=== PATIENT | male | born 1965 ===

== ENCOUNTER 2025-06-13 14:28 | Outpatient (NON) | payer OTHER, SELFPAY ==
--- OUTSIDE RECORDS SUMMARY | 2025-06-13 14:39 | XMS_ITS | Clinical Summary ---
Author Organization [facility] Address [address] [place] [address] Care Team Providers Care Automatic Oven Operator Name Role Phone Unavailable Primary Care Provider Unavailabl e Social History Tobacco Use Types Packs/Day Years Used Date Smoking Tobacco: Never Assessed Sex and Gender Information Value Date Recorded Sex Assigned at Not on file Legal Sex Male 3:26 PM LOG BUNCHER Gender Identity Not on file Sexual Orientation Not on file Plan of Treatment Health Maintenance Due Date Last Done Comments DTAP/TDAP/TD VACCINES (1 - Tdap) 1983 COLORECTAL SCREENING 2009 Colorectal Cancer Screening 2009 FIT-DNA Q 3 years 2009 FIT/FOBT Q 1 year 2009 Flex Sig/CT Colonography Q 5 years 2009 ZOSTER VACCINE (1 of 2) 2014 INFLUENZA VACCINE (#1) 2025 RSV VACCINE (60+ or ) (1 - 1-dose 75+ series) 2039 Insurance [facility]
--- OUTSIDE RECORDS SUMMARY | 2025-06-13 14:39 | XMS_ITS | Encounter Summary ---
Author Organization [facility] Address [address] [place] [address] Phone Care Team Providers Care Machinery Engineer Name Role Phone Anuel Vargas Primary Care Provider [phone] Justin Flowers MD Unavailable Erlin Chong MD Unavailable Katerina Romero RN Unavailable Unavailable Alexandra Powell RN Unavailable Encounter Details Date Type Department Care Team (Late st Contact Info) Description 05/08/2025 Documentation [facility] Endocrinology Metabolism and Lipid [address] [facility] Advanced Medicine 13th [place] [address] [place] [address] Edmundo Best MD [address] [place] [address] Social History Tobacco Use Types Packs/Day Years Used Date Smoking Tobacco: Never Passive Smoke Exposure: Never Smokeless Tobacco: Never [facility] Utilities Answer Date Recorded In the past 12 months has [employer], gas, oil, or water [employer] threatened to shut off services in your home? No 04/10/2025 Social Connection and Isolat ion Panel [NHANES] Answer Date Recorded In a typical week, how many times do you talk on the phone with family, friends, or neighbors? More than three times a week 04/10/2025 How often do you get togethe r with friends or relatives? Once a week 04/10/2025 How often do you attend chur ch or scientologist services? Never 04/10/2025 Do you belong to any clubs o r organizations such as islam groups, unions, fraternal or athletic groups, or school groups? No 04/10/2025 How often do you attend meet ings of the clubs or organizations you belong to? Never 04/10/2025 Are you , , di vorced, , never , or living with a partner? 04/10/2025 AUDIT-C Answer Date Recorded Q1: How often do you have a drink containing alcohol? Never 05/02/2025 Q2: How many drinks containi ng alcohol do you have on a typical day when you are drinking? Patient does not drink Q3: How often do you have si x or more drinks on one occasion? Never 05/02/2025 Overall Financial Resource Strain (CARDIA) Answe r Date Recorded How hard is it for you to pa y for the very basics like food, housing, medical care, and heating? Not hard at all 04/10/2025 PHQ-2 Answer Date Recorded PHQ-2 Total Score 1 04/10/2025 Hunger Vital Sign Answer Date Recorded Within the past 12 months, y ou worried that your food would run out before you got the money to buy more. Never true 04/10/20 25 Within the past 12 months, t he food you bought just didn't last and you didn't have money to get more. Never true 04/10/2025 PRAPARE - Transportation Answer Date Re corded In the past 12 months, has l ack of transportation kept you from medical appointments or from getting medications? No 03/22 In the past 12 months, has l ack of transportation kept you from meetings, work, or from getting things needed for daily living? No 04/10/2025 Housing Stability Vital Sign Answer [place] e Recorded In the last 12 months, was t here a time when you were not able to pay the mortgage or rent on time? No 11/28/2023 In the last 12 months, how many places have you lived? 1 11/28/2023 In the last 12 months, was t here a time when you did not have a steady place to sleep or slept in a snf (including now)? No 11/28/2023 PHQ-9 Answer Date Recorded PHQ-9 Total Score 5 04/10/2025 Housing Stability Vital Sign Answer [place] Recorded In the last 12 months, was t here a time when you were not able to pay the mortgage or rent on time? No 04/10/2025 In the past 12 months, how m any times have you moved where you were living? 0 04/10/2025 At any time in the past 12 m [facility], were you homeless or living in a snf (including now)? No 04/10/2025 Personal Safety Answer Date Recorded Have you ever been in or are you currently in a harmful physical or emotional relationship or is someone making you feel afraid or unsafe? 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 auris 04/18/2025 04/18/202505/0805/08/2025 9:48 AM CDT 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 Specials protocols are implemented when working with a patient testing positive for C. Auris. 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 05/07/2025 05/07/2025 COVID: Suspected 05/20/2025 05/20/2025 05/20/2025 9:26 AM CDT documented as of this encounter Care Teams Machinery Engineer Relationship Specialty Start Date End Date Anuel Vargas DO PCP - General Internal Medicine 10/19/22 Justin Flowers MD [address] DIV IM BONE MARROW TRANSPLANT, [address] [place] [address] Consulting Physician Medical Oncology 10/06/23 Erlin Chong MD [address] DIV IM BONE MARROW TRANSPLANT, [address] [place] [address] Referring Physician Cardiology 10/06/23 Katerina Romero, manager lswFloor Waxer Cardiothoracic Surgery 04/03/25 05/20/25 Alexandra Powell, RN [address] [facility] [address] [place] [address] Floor Waxer Transplant 05/21/25 documented as of this encounter
--- OUTSIDE RECORDS SUMMARY | 2025-06-13 14:39 | XMS_ITS | Encounter Summary ---
Author Organization [facility] Address [address] [place] [address] Phone Care Team Providers Care Rv Service Technician Name Role Phone Anuel Vargas Primary Care Provider [phone] Justin Flowers MD Unavailable Erlin Chong MD Unavailable Katerina Romero RN Unavailable Unavailable Alexandra Powell RN Unavailable [phone] Encounter Details Date Type Department Care Team (Late st Contact Info) Description 10/28/2023 Telephone [facility] Oncology [facility] 7th [place] [address] [place] [address] Mavis Adair Social History Tobacco Use Types Packs/Day Years Used Date Smoking Tobacco: Never Smokeless Tobacco: Never AUDIT-C Answer Date Recorded Q1: How often do you have a drink containing alc ohol? Monthly or less 07/19/2023 Average Number of Drinks Not on file 023 Frequency of Binge Drinking Not on file 06/22 Personal Safety Answer Date Recorded Getting School Help Needed Denies 11/01 Sex and Gender Information Value Date Recorded Sex Assigned at Not on file Legal Sex Male 12:25 PM NON DESTRUCTIVE EVALUATION TECHNICIAN Gender Identity Male 05/28/2021 8:44 PM CDT Sexual Orientation Straight 10/19/2022 9: 47 AM NON DESTRUCTIVE EVALUATION TECHNICIAN documented as of this encounter Plan of Treatment Upcoming Encounters Date Type Department Care Team (Latest Contact Info) Description 06/17/2025 12:00 PM CDT Hospital Encounter [address] [place] [address] Rodney Newsome MD PhD [address] [place] [address] 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 auris Comment:04/15/25: Negative C. Auris swab. Leelee Schuler 04/17/2025 This flag is used to identify patient who are in house who are being monitored by Infection Prevention. If the patient is discharged and a swab has not been collected, if patient returns to hospital within 7 days a surveillance swab is to be collected (Reach out to IP for order) Patient does NOT need isolation, patient can travel off the floor. 04/10/2025 04/10/2025 04/17/2025 7:29 AM C DT Ring Surveillance: C. auris 04/18/2025 04/18/2025 05/08/2025 9:48 AM CDT 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 Specials protocols are implemented when working with a patient testing positive for C. Auris. 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 05/07/2025 05/07/2025 COVID: Suspected 05/20/2025 05/20/2025 05/20/2025 9:26 AM CDT documented as of this encounter Care Teams Rv Service Technician Relationship Specialty Start Date End Date Anuel Vargas DO PCP - General Internal Medicine 10/19/22 Justin Flowers MD [address] DIV IM BONE MARROW TRANSPLANT, [address] [place] [address] Consulting Physician Medical Oncology 10/06/23 Erlin Chong MD [address] DIV IM BONE MARROW TRANSPLANT, [address] [place] [address] Referring Physician Cardiology 10/06/23 Katerina Romero, applications architectLab Support Tech Cardiothoracic Surgery 04/03/25 05/20/25 Alexandra Powell, RN [address] [facility] [address] [place] [address] Lab Support Tech Transplant 05/21/25 documented as of this encounter
--- OUTSIDE RECORDS SUMMARY | 2025-06-13 14:39 | XMS_ITS | Encounter Summary ---
Author Organization [facility] Address [address] [place] [address] Care Team Providers Care Harm Reduction Worker Name Role Phone Richard ROMANO MD, Ariel Martell Primary Care Provider Karmen Ramos DO Primary Care Provider [phone] Anuel Vargas DO Primary Care Provider [phone] Encounter Details Date Type Department Care Team (Late st Contact Info) Description 09/24/2017 [place] [address] , Polina Campoverde MD Social History Tobacco Use Types Packs/Day Years Used Date Smoking Tobacco: Never Assessed Sex and Gender Information Value Date Recorded Sex Assigned at Not on file Legal Sex Male 7:22 PM CDT Gender Identity Not on file Sexual Orientation Not on file documented as of this encounter Plan of Treatment Not on file documented as of this encounter Visit Diagnoses Not on filedocumented in this encounter Care Teams Harm Reduction Worker Relationship Specialty Start Date End Date Ariel Ramos II, MD PCP - General 03/14/15 11/24/21 Karmen Ramos DO [address] [place] [address] PCP - General INTERNAL MEDICINE 11/25/21 08/04/22 Anuel Vargas DO [address] [place] [address] PCP - General INTERNAL MEDICINE 08/05/22 documented as of this encounter
--- OUTSIDE RECORDS SUMMARY | 2025-06-13 14:39 | XMS_ITS | Clinical Summary ---
Author Organization [facility] [employer] Address [address] [facility] [place] [address] Care Team Providers Care Pony Trimmer Name Role Phone Unavailable Primary Care Provider Unavailabl e Source Comments [facility],non-owned Affiliates and Associated Physician Practices is amultiple site organization consisting of ambulatory clinics and hospital sitesin [place], [place], [place] and [place]. This disclosure is being madepursuant to the Care Everywhere program and may not contain all information available regarding this patient. Last updated 18.[facility] [employer] Social History Tobacco Use Types Packs/Day Years Used Date Smoking Tobacco: Never Assessed Sex and Gender Information Value Date Recorded Sex Assigned at Not on file Legal Sex Male 4:10 PM CDT Gender Identity Not on file Sexual Orientation Not on file Plan of Treatment Health Maintenance Due Date Last Done Comments COLOGUARD (AGES 45-75) - COLON CA SCREENING 1964 COLON MONITORING 1964 COLONOSCOPY - COLON CA SCREENING 1964 CT COLONOGRAPHY - COLON CA SCREENING 1964 Colorectal Cancer Screening 1964 FIT - COLON CA SCREENING 1964 FLEX SIG - COLON CA SCREENING 1964 HIV SCREENING 1979 HEPATITIS C SCREENING 05/02/1982 DTAP/TDAP/TD VACCINES (1 - Tdap) 1983 PNEUMOCOCCAL VACCINE 50+ (1 of 1 - PCV) 2014 ZOSTER VACCINE (1 of 2) 2014 COVID-19 VACCINE ( - season) 2024 04/27/2022, 04/27/2022, 11/24/2021, Additional history exists DEPRESSION SCREENING 11/21/2024 INFLUENZA VACCINE (#1) 2025 , 08/26/2020, 09/25/2019 LIPID TESTING 08/07/2027 08/07/2022 Respiratory Syncytial Virus (RSV) Vaccine Pt: or over 60 yrs (1 - 1-dose 75+ series) 2039 HEPATITIS B VACCINE Aged Out No longe r eligible based on patient's age to complete this topic HIB VACCINE Aged Out No longer eligi ble based on patient's age to complete this topic HPV VACCINE Aged Out No longer eligi ble based on patient's age to complete this topic MENINGOCOCCAL (Group B) VACCINE SHARED DECISION-MAKING Aged Out No longer eligible based on patient's age to complete this topic MENINGOCOCCAL GROUPS A/C/Y/W VACCINE Aged Out No longer eligible based on patient's age to complete this topic Insurance [employer]
--- OUTSIDE RECORDS SUMMARY | 2025-06-13 14:39 | XMS_ITS | Encounter Summary ---
Author Organization [facility] Address [address] [place] [address] Phone Care Team Providers Care Medical Transcriptionist Name Role Phone Anuel Vargas Primary Care Provider [phone] Reason for Referral * Procedure (Routine) - Closed Specialty Diagnoses / Procedures Referred By Ericka amaya Referred To Contact Diagnoses ILD (interstitial lung disease) ([facility]) Procedures Pulmonary Function Test -[facility]- [facility]; Oxygen Assessment Titration, Spirometry, Spirometry with Bronchodilator, ABG, Lung Volumes, DLCO; Pleth with Airway Resistance; Room Air ABG; Spirometry Kathy Hewitt MD [address] [place] [address] Phone: tel: fax: Referral ID Status Reason Start Date Expiration Date Visits Re quested Visits Authorized [id number] Closed 07/05/2023 08/03/2024 1 1 Reason for Visit * Procedure (Routine) - Closed Specialty Diagnoses / Procedures Referred By Ericka amaya Referred To Contact Diagnoses ILD (interstitial lung disease) ([facility]) Procedures Pulmonary Function Test -[facility]- [facility]; Oxygen Assessment Titration, Spirometry, Spirometry with Bronchodilator, ABG, Lung Volumes, DLCO; Pleth with Airway Resistance; Room Air ABG; Spirometry Kathy Hewitt MD [address] [address] Phone: tel: fax: Referral ID Status Reason Start Date Expiration Date Visits Re quested Visits Authorized [id number] Closed 07/05/2023 08/03/2024 1 1 Encounter Details Date Type Department Care Team (Latest Contact Info) Description 07/19/2023 7:26 AM CDT Hospital Encounter [facility] PFT Lab [address] [facility] [address] [place] [address] ILD (interstitial lung disease) (HCC) Social History Tobacco Use Types Packs/Day Years Used Date Smoking Tobacco: Never Passive Smoke Exposure: Never Smokeless Tobacco: Never [facility] Utilities Answer Date Recorded In the past 12 months has [employer] electric, gas, oil, or water company threatened to shut off services in your [...] often do you attend chur ch or yarsanism services? Never 04/10/2025 Do you belong to any clubs o r organizations such as congregation groups, unions, fraternal or athletic groups, or [...] place to sleep or slept in a chcf (including now)? No 11/28/2023 PHQ-9 Answer Date [...] any time in the past 12 m [facility], were you homeless or living in a chcf (including now)? No 04/10/2025 Personal Safety Answer Date Recorded Have you ever been in or are you currently in a harmful physical or emotional relationship or is someone making you feel afraid or unsafe? Denies 06/12/2025 Sex and Gender Information Value Date Recorded Sex Assigned at Not on file Legal Sex Male 12:25 PM TRACK WORKER Gender Identity Male 05/28/2021 8:44 PM CDT Sexual Orientation Straight 10/19/2022 9: 47 AM TRACK WORKER documented as of this encounter Functional Status * Audit-C Score Answer Date of Assessment Author 0 04/08/2025 8:18 AM CDT Emeli Soler RN * Question Answer Date of Assessment Author Q1: How often do you have a drink containing alcohol? Never 04/08/2025 8:18 AM CDT Emeli Soler RN Q2: How many drinks containing alcohol do you have on a typical day when you are drinking? Patient does not drink 05/02/2025 7:09 AM CDT Catarina Soria RN Q3: How often do you have six or more drinks on one occasion? Never 05/02/2025 7:09 AM CDT Catarina Soria, R N * Over the last 2 weeks, how often have you been bothered by any of the following problems? Question Answer Date of Assessment Author Feeling nervous, anxious, or on edge 0 04/10/2025 2:50 PM CDT Alexandra Colin, STEVEN Not being able to stop or control worrying 0 04/10/2025 2:50 PM CDT Alexandra Colin, GAS STATION ATTENDANT Worrying too much about different things 0 04/10/2025 2:50 PM CDT Alexandra Colin, STEVEN Trouble relaxing 0 04/10/2025 2:50 PM CDT Alexandra Marie, GAS STATION ATTENDANT Being so restless that it is hard to sit still 0 04/10/2025 2:50 PM CDT Alexandra Colin, GAS STATION ATTENDANT Becoming easily annoyed or irritable 0 04/10/2025 2:50 PM CDT Alexandra Colin, GAS STATION ATTENDANT Feeling afraid as if somethi ng awful might happen 0 04/10/2025 2:50 PM CDT Alexandra Colin LCSW MELONY-7 Total Score 0 04/10/2025 2:50 PM CDT Alexandra Colin LCSW documented as of this encounter Plan of Treatment Upcoming Encounters Date Type Department Care Team (Latest Contact Info) Description 06/17/2025 12:00 PM CDT Hospital Encounter [facility] [place] [facility] [address] [address] [place] [address] Rodney Newsome MD PhD [address] [place] [address] 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) 06/17/2025 12:00 PM CDT - 06/17/2025 12:30 PM CDT Surgery Heart [facility] [address] [place] [address] [address] [place] [address] Rodney Newsome MD PhD [address] [place] [address] ENDOMYOCARDIAL BIOPSY [address] documented as of this encounter Procedures Procedure Name Priority Date/Time Associated Diagnosis Comments PULMONARY FUNCTION TEST (PFT) Routine 07/19/2023 8:57 AM CDT ILD (interstitial lung disease) ([facility]) documented in this encounter Results * Pulmonary Function Test - (07/19/2023 8:57 AM CDT) FVC PRE 2.98 L [facility] FVC %PRE PRED 64 % [facility] FVC POST 3.17 L [facility] FVC %POST PRED 68 % [facility] FEV1 PRE 2.45 L [facility] FEV1 %PRE PRED 68 % [facility] FEV1 POST 2.70 L [facility] FEV1 %POST PRED 75 % [facility] FEV1/FVC PRE 82.2 % [facility] FEV1/FVC POST 85.3 % [facility] FRC PL PRE 2.64 L [facility] FRC PL %PRE PRED 68 % [facility] RV PRE 1.72 L [facility] RV %PRE PRED 73 % [facility] TLC PRE 4.81 L [facility] TLC %PRE PRED 65 % [facility] DLCO PRE 20.9 ml/min/mmH g [facility] DLCO %PRE PRED 71 % [facility] FIO2 % 21.00 % [facility] PaO2 102.0 mmHg [facility] PaCO2 39.0 mmHg [facility] pH 7.46 [facility] A-aDO2 POC -1.0 mmHg [facility] METHGB % 0.6 % [facility] COHb POC 1.1 % [facility] HCO3 27.7 mEq/L [facility] Anatomical Region Laterality Modality PFT 07/19/2023 7:56 AM CDT Impressions 07/20/2023 10:52 AM CDT There is a mild restrictive ventilatory defect. There is no impairment of alveolar gas exchange by DLCO. There is no impairment of O2 gas exchange at rest by ABG. The attending pulmonary physician certifies a physician presence in the [facility] Suite during the administration of aerosolized bronchodilator. The attending pulmonary physician certifies that he/she has reviewed and interpreted the graphic and numerical data of this pulmonary function study and agrees with the written final report. The lower limit of normal for PO2 and %HbO2 is age dependent. However, the [facility] Pulmonary Function Laboratory defines hypoxemia as a PO2 <55 or a %HbO2 <89. Narrative 07/20/2023 10:52 AM CDT Table formatting from the original result was not included. [facility] Division of Pulmonary & Critical Care Medicine [address] [place] [address]; [facility]; [place] [address]; [phone] Pulmonary Function Laboratory Pulmonary Stress Test Simple/Oxygen Assessment Patient: Jayjay Roland Date: 07/19/2023 : 1965 Ht: 72 IN Wt: 200 LBS Time (min) Distance (ft)/ Olivier O2 L/M SpO2 HR Khadar* BP FEV1 % Pred Rest: RA 99 65 0.5 97/70 2.45 68 % Walk/Bike: 1 RA 99 82 0.5 2 RA 98 87 1 3 RA 98 90 2 4 RA 98 93 3 5 RA 99 94 3 6 min 0 sec RA 99 96 3 Recovery: 1 RA 99 88 1 90/66 2.38 60% 3 RA 99 67 0.5 *Khadar rate of perceived exertion (1-10 dyspnea scale) Td, CHEST 2003; 123:1408 Walk Test Summary: Six Minute Walk Distance: 1275 ft Six-minute Walk Work [distance (m) x body wt (kg)]: 30822 kg.m (normal >60,000kg.m) Oxygen required to maintain SpO2 greater than 90% during six minutes of walkin L/M Comments: [id number] STANDARDS- NO STOPS Interpretation: Breathing room air, SpO2 is normal at rest and during exercise sufficient to increase pulse from 65 to 96 b/min, SpO2 is stable. On this basis, SpO2 is adequate at rest breathing room air and while walking breathing room air. This level of exercise is associated with no significant change of FEV1. Gerardo Moreira M.D. By signing this report, the attending pulmonary physician certifies that he/she has personally reviewed and interpreted the graphic and numerical data associated with this pulmonary function study and has reviewed and /or edited a preliminary draft report and agrees with the written final report. PFT performed at:->[facility] Adult PFT Lab- [facility] Procedure:->Oxygen Assessment Titration Procedure:->Spirometry Procedure:->Spirometry with Bronchodilator Procedure:->ABG Procedure:->Lung Volumes Procedure:->DLCO Lung Volumes via:->Pleth with Airway Resistance ABG:->Room Air ABG DLCO:->Spirometry Pulmonary Function Test Interpretation SPIROMETRY: The FEV-I and FVC are reduced in a pattern suggestive of a restrictive abnormality. There is no significant improvement after inhaling a single nebulized dose of albuterol. FLOW VOLUME LOOPS: The inspiratory loop is appropriate for the expiratory flow abnormality. LUNG VOLUMES: TLC measured by plethysmography is decreased. DIFFUSING CAPACITY: The diffusing capacity corrected for hemoglobin level (DLCO ADJ) is within normal limits. ARTERIAL BLOOD GASES: There is an uncompensated metabolic alkalosis. The arterial p02 is normal at rest. 02 saturation measured by oximetry is normal at rest. PULSE OXIMETRY: See Oxygen Assessment/Cardiopulmonary Exercise Study-Simple us Kathy Hewitt MD PFT ORDERABLES Final Result documented in this encounter Visit Diagnoses Diagnosis ILD (interstitial lung disease) (HCC) Postinflammatory pulmonary fibrosis 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)- Primary 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) 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 documented in this encounter Additional Health Concerns Infection Onset Date Last Indicated Resolved Time COVID: Suspected 11/27/2023 11/27/2023 11/27/2023 3:18 PM TRACK WORKER RSV, droplet 11/27/2023 11/27/2023 12/04/2023 3:05 AM TRACK WORKER Ring Surveillance: C. auris Comment:04/15/25: Negative C. [...] documented as of this encounter Care Teams Medical Transcriptionist Relationship Specialty Start Date End Date Anuel Vargas DO PCP - General Internal Medicine 10/19/22 documented as of this encounter
--- OUTSIDE RECORDS SUMMARY | 2025-06-13 14:40 | XMS_ITS | Encounter Summary ---
Author Organization [facility] Address [address] [place] [address] Phone Care Team Providers Care Reserves Clerk Name Role Phone Anuel Vargas Primary Care Provider [phone] Justin Flowers MD Unavailable Erlin Chong MD Unavailable Alexandra Powell RN Unavailable Encounter Details Date Type Department Care Team (Late st Contact Info) Description 05/28/2025 Results Follow-Up [facility] Gasteroenterology [address] [facility] Medicine 12th [place] [address] [place] [address] Jessica Marti MD [address] [place] [address] Hepatitis C genotype Blood Social History Tobacco Use Types Packs/Day Years Used Date Smoking Tobacco: Never Passive Smoke Exposure: Never Smokeless Tobacco: Never [facility] Utilities Answer Date Recorded In the past 12 months has [employer], gas, oil, or water company threatened to [...] often do you attend chur ch or voodoo services? Never 04/10/2025 Do you belong to any clubs o r organizations such as presybeterian groups, unions, fraternal or athletic groups, or [...] place to sleep or slept in a correction (including now)? No 11/28/2023 PHQ-9 Answer Date [...] time in the past 12 m [facility], were you homeless or living in a correction (including now)? No 04/10/2025 Personal Safety Answer Date Recorded Have you ever been in or are you currently in a harmful physical or emotional relationship or is someone making you feel afraid or unsafe? 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 WINDOWS SERVER SUPPORT TECHNICIAN Gender Identity Male 05/28/2021 8:44 PM CDT Sexual Orientation Straight 10/19/2022 9: 47 AM WINDOWS SERVER SUPPORT TECHNICIAN documented as of this encounter Miscellaneous Notes * Result Encounter Note - Jessica Marti MD - 05/28/2025 8:02 AM CDT HCV VL has increased, genotype 1a I recommend starting Epclusa for 12 weeks (or Mavyret for 8 weeks if that is preferred agent through his insurance). Mavyret may increase tac levels so will just need to monitor and adjust after starting. I don't see any major drug interactions other than pantoprazole. 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 Specials protocols are implemented when working with a patient testing positive for C. Auris. 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 05/07/2025 05/07/2025 documented as of this encounter Care Teams Reserves Clerk Relationship Specialty Start Date End Date Anuel Vargas DO PCP - General Internal Medicine 10/19/22 Justin Flowers MD [address] DIV IM BONE MARROW TRANSPLANT[address] [place] [address] Consulting Physician Medical Oncology 10/06/23 Erlin Chong MD [address] DIV IM BONE MARROW TRANSPLANT[address] [place] [address] Referring Physician Cardiology 10/06/23 Alexandra Powell, RN [address] [facility] [address] [place] [address] [facility] Trans[facility] 05/21/25 documented as of this encounter
--- OUTSIDE RECORDS SUMMARY | 2025-06-13 14:40 | XMS_ITS | Encounter Summary ---
Author Organization [facility] Address [address] [place] [address] Phone Care Team Providers Care Outdoor Pursuits Instructor Name Role Phone Anuel Vargas Primary Care Provider [phone] Justin Flowers MD Unavailable Erlin Chong MD Unavailable [phone] Alexandra Powell RN Unavailable [phone] Encounter Details Date Type Department Care Team (Late st Contact Info) Description 06/13/2025 Telephone [facility] Gastroenterology [address] [facility] 12th [place] [address] [place] [address] Yamel Pearson RN Social History Tobacco Use Types Packs/Day Years Used Date Smoking Tobacco: Never Passive Smoke Exposure: Never Smokeless Tobacco: Never [facility] Utilities Answer Date Recorded In the past 12 months has [employer], gas, oil, or water [employer] threatened to shut off services in your [...] 04/10/2025 How often do you attend chur or yazidi services? Never 04/10/2025 Do you belong to any clubs o r organizations such as muslim groups, unions, fraternal or athletic groups, or [...] any time in the past 12 m [facility], were you homeless or living in a correction (including now)? No 04/10/2025 Personal Safety Answer Date Recorded Have you ever been in or are you currently in a harmful physical or emotional relationship or is someone making you feel afraid or unsafe? Denies 06/12/2025 Sex and Gender Information Value Date Recorded Sex Assigned at Not on file Legal Sex Male 12:25 PM CONTACT LENS FITTER Gender Identity Male 05/28/2021 8:44 PM CDT Sexual Orientation Straight 10/19/2022 9: 47 AM CONTACT LENS FITTER documented as of this encounter Miscellaneous Notes * Telephone Encounter - Yamel Pearson RN - 06/13/2025 9:32 AM CDT Rx sent to [facility] specialty pharmacy. PHV 12/12/25. Task sent to Hep C coordinator to help manage treatment/labs. ----- Message from Jessica Marti MD sent at 06/12/2025 2:38 PM CDT ----- Regarding: RE: hospital discharge Plan for Mavyret x 8 weeks. This should have been started inpatient but need to be sure he has fullcoverage. Labs per protocol Follow up in 6 months with pa ----- Message ----- From: Yamel Pearson RN Sent: 06/12/2025 8:04 AM CDT To: Jessica Marti MD Subject: hospital discharge Any f/u instructions? 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 Plan: continue outpatient Mavyret, may need prior auth?, f/u [facility] 6 months; labs with CBC,BMP, INR, HCV PCR in 1 month. 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) 06/17/2025 12:00 PM CDT - 06/17/2025 12:30 PM CDT Surgery [address] [place] [address] Rodney Newsome MD PhD [address] [place], [place] [address] ENDOMYOCARDIAL BIOPSY [address] documented as of this encounter Visit Diagnoses [...] documented as of this encounter Care Teams Outdoor Pursuits Instructor Relationship Specialty Start Date End Date Anuel Vargas DO PCP - General Internal Medicine 10/19/22 Justin Flowers MD [address] DIV IM BONE MARROW TRANSPLANT[address] [place] [address] Consulting Physician Medical Oncology 10/06/23 Erlin Chong MD [address] DIV IM BONE MARROW TRANSPLANT[address] [place] [address] Referring Physician Cardiology 10/06/23 Alexandra Powell, RN [address] [address] [facility] Transplant 05/21/25 documented as of this encounter
--- OUTSIDE RECORDS SUMMARY | 2025-06-13 14:40 | XMS_ITS | Encounter Summary ---
Author Organization [facility] Healthcare Address [address] [place] [address] Care Team Providers Care Call Manager Name Role Phone AliciaAnuel Pardeep CASTRO Primary Care Provider [phone] Justin Flowers MD Unavailable Erlin Chong MD Unavailable Alexandra Powell RN Unavailable [phone] Encounter Details Date Type Department Care Team (Late st Contact Info) Description 06/12/2025 Telephone [facility] Transplant Heart [address] [facility] [phone] [place] [address] Alda Coburn Social History Tobacco Use Types Packs/Day Years Used Date Smoking Tobacco: Never Passive Smoke Exposure: Never Smokeless Tobacco: Never [facility] Utilities Answer Date Recorded In the past 12 months has [employer], gas, oil, or water [employer] threatened to shut off services in your [...] How often do you attend chur or yarsanism services? Never 04/10/2025 Do you belong to any clubs o r organizations such as bahai groups, unions, fraternal or athletic groups, or [...] place to sleep or slept in a alf (including now)? No 11/28/2023 PHQ-9 Answer Date [...] any time in the past 12 m [facility], were you homeless or living in a alf (including now)? No 04/10/2025 Personal Safety Answer Date Recorded Have you ever been in or are you currently in a harmful physical or emotional relationship or is someone making you feel afraid or unsafe? Denies 06/12/2025 Sex and Gender Information Value Date Recorded Sex Assigned at Not on file Legal Sex Male 12:25 PM SENIOR QC TECHNICIAN Gender Identity Male 05/28/2021 8:44 PM CDT Sexual Orientation Straight 10/19/2022 9: 47 AM SENIOR QC TECHNICIAN documented as of this encounter Miscellaneous Notes * Telephone Encounter - Alexandra Powell RN - 06/12/2025 2:19 PM CDT Returned patient's phone call to discuss. Patient states he received both a short acting insulin and a long acting insulin in his medication bag. Patient is only on Lantus 31 units subcutaneous dailyinjections at this time. Patient's blue card only states Lantus 31 units daily as well. Patient is aware to only use the Lantus injections at this time. Patient states he is doing well without any issues or concerns. I also e-mailed him his return to work letter with the letter stating ok to returnto work June 27. This is OK per Dr. Newsome. 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 I e-mailed the letter to [email or web address]. * Telephone Encounter - Alda Coburn - 06/12/2025 2:09 PM CDT Received call from pt needing to speak with nurse coordinator regarding: Has a medication question and also wants to talk about a letter for return back to work Patient needs a return call from the nurse coordinator. 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) 06/17/2025 12:00 PM CDT - 06/17/2025 12:30 PM CDT Surgery [address] [place] [address] Rodney Newsome MD PhD [address] [place] [address] ENDOMYOCARDIAL BIOPSY [address] documented as of this encounter Visit Diagnoses [...] documented as of this encounter Care Teams Call Manager Relationship Specialty Start Date End Date Anule Vargas DO Pardeep PCP - General Internal Medicine 10/19/22 Justin Flowers MD [address] DIV IM BONE MARROW TRANSPLANT[address] [place] [address] Consulting Physician Medical Oncology 10/06/23 Erlin Chong MD [address] DIV IM BONE MARROW TRANSPLANT[address] [place] [address] Referring Physician Cardiology 10/06/23 Alexandra Powell, RN [address] [facility] [address] [place] [address] Clinical Nutritionist Transplant 05/21/25 documented as of this encounter
--- OUTSIDE RECORDS SUMMARY | 2025-06-13 14:40 | XMS_ITS | Encounter Summary ---
Author Organization [facility] Address [address] [place] [address] Care Team Providers Care Client Care Representative Name Role Phone AliciaAnuel Pardeep CASTRO Primary Care Provider [phone] Justin Flowers MD Unavailable Erlin Chong MD Unavailable [phone] Alexandra Powell RN Unavailable [phone] Encounter Details Date Type Department Care Team (Late st Contact Info) Description 06/13/[address] [facility] Transplant Heart [address] [facility] [phone] [place] [address] Yue Corado Social History Tobacco Use Types Packs/Day Years Used Date Smoking Tobacco: Never Passive Smoke Exposure: Never Smokeless Tobacco: Never [facility] Utilities Answer Date Recorded In the past 12 months has [employer], gas, oil, or water [email or web address] threatened to shut off services in your [...] often do you attend chur ch or islam services? Never 04/10/2025 Do you belong to any clubs o r organizations such as religion groups, unions, fraternal or athletic groups, or [...] place to sleep or slept in a halfway (including now)? No 11/28/2023 PHQ-9 Answer Date [...] any time in the past 12 m [facility], were you homeless or living in a halfway (including now)? No 04/10/2025 Personal Safety Answer Date Recorded Have you ever been in or are you currently in a harmful physical or emotional relationship or is someone making you feel afraid or unsafe? Denies 06/12/2025 Sex and Gender Information Value Date Recorded Sex Assigned at Not on file Legal Sex Male 12:25 PM FOREST ECOLOGIST Gender Identity Male 05/28/2021 8:44 PM CDT Sexual Orientation Straight 10/19/2022 9: 47 AM FOREST ECOLOGIST documented as of this encounter Miscellaneous Notes * Telephone Encounter - Yue Corado - 06/13/2025 1:45 PM CDT Regarding orders for: CBC, CMP, TAcro to be completed or drawn at [facility]. 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) 06/17/2025 12:00 PM CDT - 06/17/2025 12:30 PM CDT Surgery [address] [place] [address] Rodney Newsome MD PhD [address] [place] [address] ENDOMYOCARDIAL BIOPSY [address] documented as of this encounter Visit Diagnoses [...] documented as of this encounter Care Teams Client Care Representative Relationship Specialty Start Date End Date Anuel Vargas DO PCP - General Internal Medicine 10/19/22 Justin Flowers MD [address] DIV IM BONE MARROW TRANSPLANT, [address] [place] [address] Consulting Physician Medical Oncology 10/06/23 Erlin Chong MD [address] DIV IM BONE MARROW TRANSPLANT, [address] [place] [address] Referring Physician Cardiology 10/06/23 Alexandra Powell, RN [address] [id number] Service Restorer Emergency Transplant 05/21/25 documented as of this encounter
--- OUTSIDE RECORDS SUMMARY | 2025-06-13 14:40 | XMS_ITS | Encounter Summary ---
Author Organization [facility] Healthcare Address [address] [place] [address] Care Team Providers Care Management Consulting Name Role Phone Anuel Vargas Primary Care Provider [phone] Justin Flowers MD Unavailable Erlin Chong MD Unavailable Alexandra Powell RN Unavailable [phone] Encounter Details Date Type Department Care Team (Late st Contact Info) Description 06/12/2025 Telephone [facility] Social Work [address] [place] [address] Alexandra Colin [facility] Social History Tobacco Use Types Packs/Day Years Used Date Smoking Tobacco: Never Passive Smoke Exposure: Never Smokeless Tobacco: Never [facility] Utilities Answer Date Recorded In the past 12 months has [employer], gas, oil, or water company threatened to [...] often do you attend chur ch or synagogue services? Never 04/10/2025 Do you belong to any clubs o r organizations such as cheondoism groups, unions, fraternal or athletic groups, or [...] time in the past 12 m [facility], were you homeless or living in a alf (including now)? No 04/10/2025 Personal Safety Answer Date Recorded Have you ever been in or are you currently in a harmful physical or emotional relationship or is someone making you feel afraid or unsafe? Denies 06/12/2025 Sex and Gender Information Value Date Recorded Sex Assigned at Not on file Legal Sex Male 12:25 PM EMERGENCY MANAGEMENT COORDINATOR Gender Identity Male 05/28/2021 8:44 PM CDT Sexual Orientation Straight 10/19/2022 9: 47 AM EMERGENCY MANAGEMENT COORDINATOR documented as of this encounter Miscellaneous Notes * Telephone Encounter - Alexandra Colin LCSW - 06/12/2025 5:14 PM CDT Social work received a call from Shaniqua with the [place]. She stated she was able to get the patient accepted with [facility] for his home care services and confirmed they would be able to start tomorrow. HomeCare orders faxed to [facility] intake fax at on this date. 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) 06/17/2025 12:00 PM CDT - 06/17/2025 12:30 PM CDT Surgery [address] [place] [address] Rodney Newsome MD PhD [address] [place] [address] ENDOMYOCARDIAL BIOPSY [address] documented as of this encounter Visit Diagnoses [...] documented as of this encounter Care Teams Management Consulting Relationship Specialty Start Date End Date Anuel Vargas DO PCP - General Internal Medicine 10/19/22 Justin Flowers MD [address] DIV IM BONE MARROW TRANSPLANT, [address] [place] [address] Consulting Physician Medical Oncology 10/06/23 Erlin Chong MD [address] DIV IM BONE MARROW TRANSPLANT, [address] [place] [address] Referring Physician Cardiology 10/06/23 Alexandra Powell, RN [address] [facility] [address] [place] [address] Fan Runner Transplant 05/21/25 documented as of this encounter
--- OUTSIDE RECORDS SUMMARY | 2025-06-13 14:40 | XMS_ITS | Encounter Summary ---
Author Organization [facility] Address [address] [place] [address] Phone Care Team Providers Care Beater Tender Name Role Phone Anuel Vargas Primary Care Provider [phone] Justin Flowers MD Unavailable Erlin Chong MD Unavailable Alexandra Powell RN Unavailable [phone] Encounter Details Date Type Department Care Team (Late st Contact Info) Description 06/11/2025 Orders Only [facility] Bone Marrow Transplant [address] [facility] Floor 6 [place] [address] Justin Flowers MD [address] DIV IM BONE MARROW TRANSPLANT, [address] [place] [address] [place] [facility] (Primary Dx) Social History Tobacco Use Types Packs/Day Years Used Date Smoking Tobacco: Never Passive Smoke Exposure: Never Smokeless Tobacco: Never [facility] Utilities Answer Date Recorded In the past 12 months has [employer], gas, oil, or water [employer] threatened to shut off services in your [...] often do you attend chur ch or buddhism services? Never 04/10/2025 Do you belong to any clubs o r organizations such as jain groups, unions, fraternal or athletic groups, or [...] place to sleep or slept in a custodial (including now)? No 11/28/2023 PHQ-9 Answer Date [...] any time in the past 12 m [facility], were you homeless or living in a custodial (including now)? No 04/10/2025 Personal Safety Answer Date Recorded Have you ever been in or are you currently in a harmful physical or emotional relationship or is someone making you feel afraid or unsafe? 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) 06/17/2025 12:00 PM CDT - 06/17/2025 12:30 PM CDT Surgery [address] [place] [phone] Rodney Newsome MD PhD [address] [place] [address] ENDOMYOCARDIAL BIOPSY [address] Scheduled Orders Name Type Priority Associated Diagnoses Orde r Schedule CBC with auto differential Lab STAT [place] amyloidosis (HCC) Expected: 06/25/2025, Expires: 06/11/2026 Comprehensive metabolic panel Lab STAT [place] amyloidosis (HCC) Expected: 06/25/2025, Expires: 06/11/2026 Type and screen Lab STAT [place] amyloidosis (HCC) Expected: 06/25/2025, Expires: 06/11/2026 Tacrolimus level random Lab STAT [place] amyloidosis (HCC) Expected: 06/25/2025, Expires: 06/11/2026 documented as of this encounter Visit Diagnoses Diagnosis 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 Specials protocols are implemented when working with a patient testing positive for C. Auris. 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 05/07/2025 05/07/2025 documented as of this encounter Care Teams Beater Tender Relationship Specialty Start Date End Date Anuel Vargas DO PCP - General Internal Medicine 10/19/22 Justin Flowers MD [address] DIV IM BONE MARROW TRANSPLANT, [address] [place] [address] Consulting Physician Medical Oncology 10/06/23 Erlin Chong MD [address] DIV IM BONE MARROW TRANSPLANT, [address] [place] [address] Referring Physician Cardiology 10/06/23 Alexandra Powell, RN [address] [facility] [address] [place] [address] Administrative Sales Assistant Transplant 05/21/25 documented as of this encounter
--- OUTSIDE RECORDS SUMMARY | 2025-06-13 14:40 | XMS_ITS | Clinical Summary ---
Author Organization [facility] Address [address] [place] [address] Care Team Providers Care Cardiac Nurse Name Role Phone Anuel Vargas Primary Care Provider [phone] Allergies No known active allergies Medications Multiple Vitamins-Minera ls (CENTRUM SILVER 50+MEN) Tab Take 1 tablet by mouth daily. 1 Active Cholecalciferol (VITAMIN D) 50 MCG (2000 UT) Tab Take 2,000 Units by mouth daily. Active fish oil 1000 MG Cap capsule Take 1,000 mg by mouth 2 (two) times daily. Active PROAIR HFA 108 (90 Base) MCG/ACT inhaler Inhale 2 puffs into the lungs every 6 (six) hours as needed for Shortness of breath. 2 Active FLOVENT HFA 220 MCG/ACT inhaler Inhale 2 puffs into the lungs 2 (two) times daily. 2 Active pantoprazole EC (PROTONIX) 40 MG tablet Take 40 mg by mouth daily. 2 Active atenolol (TENORMIN) 25 MG tablet Take 1 tablet (25 mg total) by mouth daily. 90 tablet 2 3 Active furosemide (LASIX) 20 MG tablet Take 1 tablet (20 mg total) by mouth daily. 90 tablet 1 3 Active spironolactone (ALDACTONE) 25 MG tablet Take 1 tablet (25 mg total) by mouth daily. 90 tablet 2 3 Active Active Problems Problem Noted Date Diagnosed Date Cholecystitis 08/06/2022 Gallstone pancreatitis (HHS/HCC) 08/05/2022 Chronic diastolic congestive heart failure ([facility]) 02/17/2022 Multiple lung nodules 11/26/2021 Abnormal finding on lung imaging 11/26/2021 Physical deconditioning 11/26/2021 Diastolic dysfunction 11/26/2021 Gastroesophageal reflux dise ase, unspecified whether esophagitis present 11/26/2021 Essential hypertension 06/02/2021 Overview (11/30/2021): Last Assessment & Plan: Salt restriction. Hydrochlorothiazide. Atenolol. Blood pressure 120/70. CAD (coronary artery disease) (HFpEF) heart failure with p reserved ejection fraction ([facility]) Overview (12/17/2021): diastolic dysfunction Resolved Problems Problem Noted Date Diagnosed Date Resolved Date MOORE (dyspnea on exertion) 11/26/2021 Immunizations Immunization Administration Dates Next Due Fluzone 6 Months+ Quad (0.5 mL Prefilled Syringe) 08/05/2022(Deferred: Patient/family declined) Influenza Adult (Generic) 10/27/2021,08/26/2020, 09/25/2019 PFIZER COVID-19 (ORIGINAL FORMULATION, PURPLE CAP) mRNA, LNP-S, PF, 30 MCG/0.3 ML DOSE 03/03/2021,02/10/2021 Family History Medical History Relation Comments Lung Cancer Paternal Uncle Relation Status Comments Father Alive Mother (Age 28) Paternal Uncle Social History Tobacco Use Types Packs/Day Years Used Date Smoking Tobacco: Never Smokeless Tobacco: Never Tobacco Cessation:Counseling Given: Not Answered Alcohol Use Standard Drinks/Week Comments Yes 0 (1 standard drink = 0.6 oz pur e alcohol) 1 beer a week PHQ-2 Answer Date Recorded PHQ-2 Score - If the patient scores above 3, please move on to questions 3-9 1 11/26/2021 Sex and Gender Information Value Date Recorded Sex Assigned at Not on file Legal Sex Male 7:22 PM CDT Gender Identity Not on file Sexual Orientation Not on file 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 Not on file Not on file Not on file Last Filed Vital Signs Vital Sign Reading Time Taken Comments Blood Pressure 102/70 05/17/2023 10:31 AM CDT Pulse 73 05/17/2023 9:49 AM CDT Temperature 36.6 C (97.9 F) 08/07/2022 11:33 AM CDT Respiratory Rate 10 08/07/2022 11:33 AM CDT Oxygen Saturation 98% 05/17/2023 9:49 AM CDT Inhaled Oxygen Concentration - - Weight 91.6 kg (202 lb) 05/17/2023 9:49 AM CDT Height 182.9 cm (6') 05/17/2023 9:49 AM CDT Body Mass Index 27.4 05/17/2023 9:49 AM CDT Plan of Treatment Health Maintenance Due Date Last Done Comments ASCVD Statin 1964 Colorectal Cancer Screening Colonoscopy (10 Years) 1964 Annual Physical 1967 Hepatitis C 1982 DTaP, Tdap and Td Vaccines (1 - Tdap) 1983 Pneumococcal Vaccine: 50+ Years (1 of 2 - PCV) 1983 Zoster Vaccines (1 of 2) 2014 ASCVD LDL 08/07/2023 08/07/2022, 08/06/2022 RSV Immunization or 60+ Years (1 - Risk 60-74 years 1-dose series) 2024 COVID-19 Vaccine ( - season) 2024 04/27/2022, 11/24/2021, 03/03/2021, Additional history exists Meningococcal B Vaccine Aged Out No l onger eligible based on patient's age to complete this topic Meningococcal Vaccine Aged Out No srinivas bradly eligible based on patient's age to complete this topic RSV Immunizations Under 20 Months Aged Out No longer eligible based on patient's age to complete this topic Goals Goal Patient Goal Type Associated Problems Recent Progress Patient-Stated? Author Patient will return to prior living situation and remain independent in ADLs upon discharge from hospital Lifestyle Farida Downing, community liaison Procedure Name Priority Date/Time Associated Diagnosis Comments LIPID PANEL Routine 08/07/2022 5:20 AM CDT from Last 3 Months or Most Recently Relevant to Health Maintenance Results * (ABNORMAL) LIPID PANEL (08/07/2022 5:20 AM CDT) CHOLESTEROL 153 <200 MG/DL 08/07/2022 6:06 AM CDT [facility] TRIGLYCERIDES 72 <150 MG/DL 08/07/2022 6:06 AM CDT [facility] HDL 35(L) >40.0 MG/DL 08/07/2022 6:06 AM CDT [facility] LDL (CALCULATED) 104(H) <100 MG/DL 08/07/2022 6:06 AM CDT [facility] NON HDL CHOLESTEROL 118 <130 MG/DL 08/07/2022 6:06 AM CDT [facility] CHOL/HDL RATIO 4.4 0.0 - 4.5 08/07/2022 6:06 AM CDT [facility] VLDL CALCULATION 14 5 - 55 MG/DL 08/07/2022 6:06 AM T [facility] LIPID INTERPRETATION 08/07/2022 6:06 AM T [facility] Comment: NIH CONCENSUS REPORT RECOMMENDATIONS: ADULT CHILD LOW RISK: CHOLESTEROL <200 <170 TRIGLYCERIDE <150 --- HDL >=60 --- LDL <100 <110 BORDERLINE: CHOLESTEROL 200-239 170-199 TRIGLYCERIDE 150-199 --- HDL 40-59 --- LDL 100-159 110-129 HIGH RISK: CHOLESTEROL >=240 >=200 TRIGLYCERIDE >=200 --- HDL <40 --- LDL >=160 >=130 08/07/2022 5:20 AM CDT Ole Mercado MD LABORATORY Final Result [facility] [address] [place] [address], [place] [phone] from Last 3 Months or Most Recently Relevant to Health Maintenance Insurance Advance Directives * Full Code (Latest Code Status on File) Date Activated Date Inactivated Comments 08/05/2022 12:45 PM 08/07/2022 3:05 PM Care Teams Cardiac Nurse Relationship Specialty Start Date End Date Anuel Vargas DO [address] [place], [place] [id number] PCP - General INTERNAL MEDICINE 08/05/22
--- OUTSIDE RECORDS SUMMARY | 2025-06-13 14:40 | XMS_ITS | Encounter Summary ---
Author Organization [facility] Address [address] [place] [address] Phone Care Team Providers Care Customer Resource Specialist Name Role Phone Anuel Vargas Primary Care Provider [phone] Justin Flowers MD Unavailable Erlin Chong MD Unavailable Alexandra Powell RN Unavailable [phone] Encounter Details Date Type Department Care Team (Late st Contact Info) Description 06/13/2025 Documentation [facility] Gastroenterology [address] [facility] 12th [place] [address] [place] [address] Yamel Pearson RN Social History Tobacco Use Types Packs/Day Years Used Date Smoking Tobacco: Never Passive Smoke Exposure: Never Smokeless Tobacco: Never [facility] Utilities Answer Date Recorded In the past 12 months has [employer], gas, oil, or water [employer] threatened to shut off services in your [...] How often do you attend chur or oriental orthodox services? Never 04/10/2025 Do you belong to any clubs o r organizations such as orthodoxy groups, unions, fraternal or athletic groups, or [...] place to sleep or slept in a longterm (including now)? No 11/28/2023 PHQ-9 Answer Date [...] any time in the past 12 m [facility], were you homeless or living in a longterm (including now)? No 04/10/2025 Personal Safety Answer Date Recorded Have you ever been in or are you currently in a harmful physical or emotional relationship or is someone making you feel afraid or unsafe? Denies 06/12/2025 Sex and Gender Information Value Date Recorded Sex Assigned at Not on file Legal Sex Male 12:25 PM CHIEF YEOMAN Gender Identity Male 05/28/2021 8:44 PM CDT Sexual Orientation Straight 10/19/2022 9: 47 AM CHIEF YEOMAN documented as of this encounter Ordered Prescriptions Prescription Sig Dispense Quantity Refills Last Filled Start Date End Date glecaprevir-pibren tasvir (MAVYRET) 100-40 mg tablet per tabletIndications: Viral Hepatitis C,8 week course Take 3 tablets by mouth daily take with food 168 tablet 06/13/2025 documented in this encounter Progress Notes * Yamel Pearson RN - 06/13/2025 9:20 AM CDT Received call from [facility] speciality pharmacy to obtain Mavyret script. Per pt insurance, needs filledthrough speciality pharmacy. Rx sent. 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) 06/17/2025 12:00 PM CDT - 06/17/2025 12:30 PM CDT Surgery [address] [place] [id number] Rodney Newsome MD PhD [address] [place] [address] ENDOMYOCARDIAL BIOPSY [address] documented as of this encounter Visit Diagnoses Not on filedocumented in this encounter Discontinued Medications Medication Sig Discontinue Reason Start Date End Da te glecaprevir-pibrentasvir (MAVYRET) 100-40 mg tablet per tabletIndications:Viral Hepatitis C Take 3 tablets by mouth daily take with food Reorder 06/04/2025 06/13/2025 documented as of this encounter Additional Health Concerns Infection Onset Date Last Indicated 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 Specials protocols are implemented when working with a patient testing positive for C. Auris. 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 05/07/2025 05/07/2025 documented as of this encounter Care Teams Customer Resource Specialist Relationship Specialty Start Date End Date Anuel Vargas DO PCP - General Internal Medicine 10/19/22 Justin Flowers MD [address] DIV IM BONE MARROW TRANSPLANT, [address] [place] [address] Consulting Physician Medical Oncology 10/06/23 Erlin Chong MD [address] DIV IM BONE MARROW TRANSPLANT, [address] [place] [address] Referring Physician Cardiology 10/06/23 Alexandra Powell, CECE [address] [facility] [address] [place] [address] Driller And Broacher Transplant 05/21/25 documented as of this encounter
--- OUTSIDE RECORDS SUMMARY | 2025-06-13 14:40 | XMS_ITS | Encounter Summary ---
Author Organization [facility] Healthcare Address [address] [place] [address] Care Team Providers Care Finance Broker Name Role Phone AliciaAnuel Primary Care Provider [phone] Justin Flowers MD Unavailable Erlin Chong MD Unavailable Alexandra Powell RN Unavailable [phone] Encounter Details Date Type Department Care Team (Late st Contact Info) Description 06/13/2025 Orders Only [facility] Transplant Heart [address] [facility] [address] [place], [place] [address]op [id number] [place] [address] Yue Corado Social History Tobacco Use Types Packs/Day Years Used Date Smoking Tobacco: Never Passive Smoke Exposure: Never Smokeless Tobacco: Never [facility] Utilities Answer Date Recorded In the past 12 months has [employer], gas, oil, or water [facility] threatened to shut off services in your [...] How often do you attend chur or congregation services? Never 04/10/2025 Do you belong to any clubs o r organizations such as rastafari groups, unions, fraternal or athletic groups, or [...] place to sleep or slept in a senior living (including now)? No 11/28/2023 PHQ-9 Answer Date [...] any time in the past 12 m [facility], were you homeless or living in a senior living (including now)? No 04/10/2025 Personal Safety Answer Date Recorded Have you ever been in or are you currently in a harmful physical or emotional relationship or is someone making you feel afraid or unsafe? 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) 06/17/2025 12:00 PM CDT - 06/17/2025 12:30 PM CDT Surgery [address] [place] [address] Rodney Newsome MD PhD [address] [place] [address] ENDOMYOCARDIAL BIOPSY [id number] documented as of this encounter Visit Diagnoses [...] documented as of this encounter Care Teams Finance Broker Relationship Specialty Start Date End Date Anuel Vargas DO PCP - General Internal Medicine 10/19/22 Justin Flowers MD [address] DIV [facility], [address] [place] [address] Consulting Physician Medical Oncology 10/06/23 Erlin Chong MD [address] DIV IM [facility]ONE [facility]ARROW TRANSPLANT, [address] [place] [address] Referring Physician Cardiology 10/06/23 Alexandra Powell, RN [address] [facility] [address] [place] [address] Director Special Education Transplant 05/21/25 documented as of this encounter
--- OUTSIDE RECORDS SUMMARY | 2025-06-13 14:40 | XMS_ITS | Clinical Summary ---
Author Organization [facility] Care Team Providers Care Centrifugal Drier Operator Name Role Phone Unavailable Primary Care Provider Unavailabl e Social History Tobacco Use Types Packs/Day Years Used Date Smoking Tobacco: Never Assessed Sex and Gender Information Value Date Recorded Sex Assigned at Not on file Legal Sex Male 4:58 PM CDT Gender Identity Not on file Sexual Orientation Not on file Plan of Treatment Health Maintenance Due Date Last Done Comments Hepatitis C Virus (HCV) Screening 1965 TdaP Immunization 1965 Colonoscopy 2009 Colorectal Cancer Screening 2009 Cologuard 2014 Immunochemical Fecal Occult Blood 2014 Pneumococcal Immunization (5 0+ years) (1 of 1 - PCV) 2014 Zoster Immunization (1 of 2) 2014 SARS-COV-2 Immunization (1 - 2023- season) 2024 Influenza Immunization (Seas on Ended) 2025 08/26/2020, 09/25/2019 Respiratory Syncytial Virus (RSV) Immunization (Adult) (1 - 1-dose 75+ series) 2039 Hepatitis B Immunization Aged Out No longer eligible based on patient's age to complete this topic Meningococcal Immunization (ACWY) Aged Out No longer eligible b ased on patient's age to complete this topic Rotavirus Immunization Aged Out No lo nger eligible based on patient's age to complete this topic
--- OUTSIDE RECORDS SUMMARY | 2025-06-13 14:40 | XMS_ITS | Continuity of Care Document ---
Author Organization [facility] Address [address] [place] [id number] Phone Care Team Providers Care Retail Cashier Name Role Phone Aris Nuno MD Unavailable Unavailable Allergies, Adverse Reactions, Alerts Substance Reaction Status Criticality No Known Allergies Active No Inform ation Medications Medication Instructions Dosage Effective Dates (start - stop) Status Comments Restasis 0.05 % eye drops in a dropperette 1 gtt BID OU - Active OK f or 90 day supply. hydrochlorothiazide 12.5 mg capsule take 1 capsule by oral route every day 12.5 MG - Active Restasis 0.05 % eye drops in a dropperette 1 gtt BID OU - No Longer Active OK for 90 day supply. Procedures Procedure Date OFFICE/OUTPATIENT VISIT, [facility] OFFICE/OUTPATIENT VISIT, [facility] Advance Directives Directive Yes / No Effective Date File Name No Information Encounters Encounter Description Practice Location Reason(s) For Visit Diagnoses Date Provider Providers Copied on Encounter [facility], [address] [place] [address], [place], [place], [id number], tel:[phone] OPH CONSULT MAME VALDOVINOS No Information 0 Yaakov Hurst. [address] [place] [address], [place] [address], [place], [place], [id number], [place]. tel:[phone] Referring Provider: Aris Toussaint, [address] [place] [address], [place], [address]. tel:[phone] OFFICE/OUTPA TIENT VISIT, [facility], [address] [place] [address], [id number], tel:[phone] OPH CONSULT MAME VALDOVINOS dry eyes (chief complaint) Age-related nuclear cataract, bilateralKerat oconjunctiviti s sicca of both eyes not due to Sjogren's syndromeSquamo us blepharitis of right lower eyelidSquamous blepharitis of left lower eyelidOther specified postprocedural states 9 Yaakov Hurst. [address] [facility], [address], [place], [place], [id number], [place]. tel:[phone] Referring Provider: Aris Toussaint, [address] [place] [address], [place], [address]. tel:[phone] OFFICE/OUTPA TIENT VISIT, [facility], [address] [place] [address], [id number], tel:[phone] OPH CONSULT MAME VALDOVINOS Blepharitis, unspecifiedTea r film insufficiency, unspecifiedSen ile nuclear sclerosis 2 Yaakov Hurst. [address] [facility], Suite [facility], [place], [place], [id number], [place]. tel:[phone] Referring Provider: Aris Toussaint, [address] [place] [address] [address], [place], [address]. tel:[phone] Family History Family Member Type Diagnosis Age At Onset No Information Payers Payer name Insurance type Covered green party ID Authornathalya tiseferino(s) [facility] [id number] Social History Type Description Quantity Date Captured Comments Sex Male Smoking Status No Information Chief Complaint And Reason For Visit No Information Reason For Referral Reason For Referral No Information History Of Present Illness Encounter Date Complaint History Of Prese nt Illness dry eyes Patient presents for dry eye eval OU so that he can get more Restasis. Patient ran out about a month ago so he's been using Genteal gtts [id number] OU. Patient states that the Restasis works much better than the genteal. He was using it QD OU sometimes BID OU. Pt hasn't used any gtts today. Pt last seen in 2011.TOTS:312/304 Functional Status Date Functional Assessmen t No Information Instructions Date Instruction Additional Infor anibal Impression/Plan Related to Kerat oconjunctivitis sicca of both eyes not due to Sjogren's syndrome Impression/Plan Related to Squam ous blepharitis of right lower eyelid Impression/Plan Related to Squam ous blepharitis of left lower eyelid Impression/Plan Related to Other specified postprocedural states Impression/Plan Related to Age-r elated nuclear cataract, bilateral Blepharitis, unspeci fied OU - Advised pt to use warm compresses BID Related to Blepharitis, unspecified Tear film insufficie ncy, unspecified OU - Patient instructed to use artificial tears as needed.Discussed Restasis Related to Tear film insufficiency, unspecified Senile nuclear scler osis OU - Cataracts account for the patient's complaints. No treatment currently recommended. The patient will monitor vision changes and contact us with any decrease in vision. Related to Senile nuclear sclerosis Assessments Type Assessment Date No Information Patient Care Teams Name Effective Dates (start - stop) Status Members No Information
--- OUTSIDE RECORDS SUMMARY | 2025-06-13 14:40 | XMS_ITS | Encounter Summary ---
Author Organization [facility] Healthcare Address [address] [place] [address] Care Team Providers Care Agricultural Services Director Name Role Phone Anule Vargas Primary Care Provider [phone] Justin Flowers MD Unavailable Erlin Chong MD Unavailable [phone] Alexandra Powell RN Unavailable [phone] Reason for Visit * Reason Comments Fall * Auth/Cert (Routine) Specialty Diagnoses / Procedures Referred By Contac t Referred To Contact Diagnoses na Procedures na Referral ID Status Reason Start Date Expiration Date Visits Re quested Visits Authorized [id number] 1 1 Encounter Details Date Type Department Care Team (Late st Contact Info) Description 06/12/2025 7:15 PM CDT - 06/12/2025 8:31 PM CDT Emergency [facility] Emergency Department [address] [place] [address] Yossi Hodges MD [address] [place] [address] Fall, initial encounter (Primary Dx); Multiple abrasions; Periorbital hematoma of right eye; History of heart transplant (HCC) Discharge Disposition: Discharge to home or self care Social History Tobacco Use Types Packs/Day Years Used Date Smoking Tobacco: Never Passive Smoke Exposure: Never Smokeless Tobacco: Never [facility] Utilities Answer Date Recorded In the past 12 months has [employer], gas, oil, or water [employer] threatened to shut off services in your [...] often do you attend chur ch or restorationism services? Never 04/10/2025 Do you belong to any clubs o r organizations such as latter-day groups, unions, fraternal or athletic groups, or [...] place to sleep or slept in a residential (including now)? No 11/28/2023 PHQ-9 Answer Date [...] any time in the past 12 m [facility], were you homeless or living in a residential (including now)? No 04/10/2025 Personal Safety Answer Date Recorded Have you ever been in or are you currently in a harmful physical or emotional relationship or is someone making you feel afraid or unsafe? Denies 06/12/2025 Sex and Gender Information Value Date Recorded Sex Assigned at Not on file Legal Sex Male 12:25 PM ANESTHESIOLOGY PHYSICIAN ASSISTANT Gender Identity Male 05/28/2021 8:44 PM CDT Sexual Orientation Straight 10/19/2022 9: 47 AM ANESTHESIOLOGY PHYSICIAN ASSISTANT documented as of this encounter Last Filed Vital Signs Vital Sign Reading Time Taken Comments Blood Pressure 110/53 06/12/2025 6:48 PM CDT Pulse 67 06/12/2025 6:48 PM CDT Temperature 36.7 C (98 F) 06/12/2025 6:48 PM CDT Respiratory Rate 18 06/12/2025 6:48 PM CDT Oxygen Saturation 98% 06/12/2025 6:48 PM CDT Inhaled Oxygen Concentration - - Weight 79.4 kg (175 lb) 06/12/2025 6:48 PM CDT Height 182.9 cm (6') 06/12/2025 6:48 PM CDT Body Mass Index 23.73 06/12/2025 6:48 PM CDT documented in this encounter Discharge Instructions * Discharge Instructions* Burke Hu MD - 06/12/2025 8:07 PM CDT You were seen in the emergency department today for evaluation of a fall. We do not see any dangerous injuries that would need any imaging at this time. You may have a minor concussion, watch for neurologic symptoms such as confusion, somnolence, headache, nausea, vomiting or difficulty concentrating. If experiencing these, try to reduce physical and mental activity to help alleviate symptoms andslow return to normal daily functions. Please follow up with your primary care as well as her transplant team for continued management. documented in this encounter Medications at Time of Discharge alcohol swabs (Alcohol Wipes) pads, medicated Use as directed. 100 each 06/04/2025 blood glucose diagnostic (glucose blood) strip Use as directed up to four times a day. 100 each 1 06/04/2025 blood-glucose meter kit Use as directed. 1 kit 06/04/2025 bumetanide (BUMEX) 1 mg tablet Take 1 tablet (1 mg total) by mouth 2 (two) times a day 60 tablet 06/11/2025 dapsone 100 mg tabletIndications:P neumocystis/Toxopla smosis Prophylaxis Take 1 tablet (100 mg total) by mouth daily 30 tablet 06/10/2025 empagliflozin (JARDIANCE) 25 mg tablet Take 1 tablet (25 mg total) by mouth daily 30 tablet 06/10/2025 fluconazole (DIFLUCAN) 100 mg tabletIndications:P rophylaxis, Medical Take 1 tablet (100 mg total) by mouth daily 30 tablet 06/08/2025 glucagon 1 mg kit Inject 1 mg into the muscle once as directed by provider for low blood sugar. 1 kit 06/07/2025 insulin glargine (LANTUS) 100 unit/mL (3 mL) pen for injection Inject 31 Units under the skin daily 15 mL 11 06/10/2025 lancets misc Use as directed up to 4 times a day. 100 each 1 06/04/2025 methocarbamoL (ROBAXIN) 500 mg tablet Take 1 tablet (500 mg total) by mouth 3 (three) times a day as needed for muscle spasms 90 tablet 06/07/2025 mycophenolate mofetil (CELLCEPT) 500 mg tablet Take 2 tablets (1,000 mg total) by mouth every 12 (twelve) hours 120 tablet 11 06/07/2025 6 oxyCODONE (ROXICODONE) 5 mg immediate release tabletIndications:P ain Take 0.5 tablets (2.5 mg total) by mouth every 6 (six) hours as needed for pain 14 tablet 06/10/[address] (PROTONIX) 20 mg EC tabletIndications:S tress Ulcer Prophylaxis Take 1 tablet (20 mg total) by mouth daily 30 tablet 11 06/08/2025 6 pen needle, diabetic (Pen Needle) 32 gauge x 5/32 needle Use as directed once a day. 100 each 06/04/2025 pen needle, diabetic 32 gauge x 5/32 needle Use as directed 3 times a day. 100 each 06/04/2025 predniSONE (DELTASONE) 5 mg tablet Take 4 tablets (20 mg) by mouth daily 120 tablet 5 06/08/2025 rosuvastatin (CRESTOR) 10 mg tablet Take 1 tablet (10 mg total) by mouth nightly 30 tablet 11 06/07/2025 6 sodium zirconium cyclosilicate (LOKELMA) 10 gram packetIndications:h yperkalemia Take 1 packet (10 g total) by mouth daily Take at noon 30 packet 3 06/10/2025 tacrolimus 1 mg immediate-release capsuleIndications: immunosuppression Take 2 capsules (2 mg total) by mouth daily AND 1 capsule (1 mg total) nightly. 90 capsule 11 06/07/2025 valGANciclovir (VALCYTE) 450 mg tabletIndications:P rophylaxis, Medical Take 1 tablet (450 mg total) by mouth daily 30 tablet 2 06/08/2025 5 glecaprevir-pibrent asvir (MAVYRET) 100-40 mg tablet per tabletIndications:V iral Hepatitis C Take 3 tablets by mouth daily take with food 168 tablet 06/04/2025 5 documented as of this encounter Discharge Disposition Disposition Code Departure Means Destination Comment s Discharge to home or self care documented in this encounter ED Notes * Burke Hu MD - 06/12/2025 8:08 PM CDT HPI Chief Complaint Patient presents with Fall HPI Patient is a 60-year-old male with past medical history of recent heart transplant on 05/21/2025 recently discharged yesterday, hyperglycemia, interstitial lung disease, and hypertension who is presenting to the ED for evaluation of a fall at home. Patient notes that he was sitting on his porch for a long period of time in his legs went numb. When he tried to stand his legs were still numb and hefell forward. Landed on his face and chest. He has no significant pain at this time. Notes abrasions to his face as well as his upper extremities. Unsure about his tetanus status. States that he feels well and this happened over 3 hours ago, he has low concern for injuries but his wanted him to come in. 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[facility]) 10/04/2023 ILD (interstitial lung disease) ([facility]) 07/19/2023 CAD (coronary artery disease) 05/10/2022 Chronic combined systolic and diastolic heart failure ([facility]) 02/17/[address] 01/05/2022 Abnormal finding on lung imaging 11/26/2021 Diastolic dysfunction 11/26/2021 GERD (gastroesophageal reflux disease) 11/26/2021 Multiple lung nodules 11/26/2021 Physical deconditioning 11/26/2021 Chronic fatigue 08/04/2021 Chronic cough 08/04/2021 Positive cardiac stress test 07/02/2021 Precordial chest pain 06/02/2021 Hypertension, essential 06/02/2021 Exertional dyspnea 06/02/2021 No pertinent past medical history 01/22/2021 Past Medical History: Diagnosis Date Abnormal cardiovascular stress test 06/2021 Chronic cough MOORE (dyspnea on exertion) GERD (gastroesophageal reflux disease) Heart disease Heart failure with reduced ejection fraction (HFrEF, <= 40%) and combined systolic and diastolicdysfunction (HCC) 04/08/2025 HTN (hypertension) Lung nodules Pulmonary nodule 05/2021 Sleep apnea Thyroid nodule Tingling in extremities 06/2021 current issue Past Surgical History: Procedure Laterality Date BIOPSY THYROID CARDIAC CATHETERIZATION 06/2021 CARDIAC CATHETERIZATION N/A 04/08/2025 Procedure: RIGHT HEART CATHETERIZATION 15680; Surgeon: Jessica Snow MD PhD; Location: [facility] CARDIAC SUPERVIS[facility] DOPING; Service: Cardiovascular; Laterality: N/A; HF slot 1, follows with Dr. Lawrence at [facility] to be amditted for heart transplant evaluation s/p RHC CARDIAC CATHETERIZATION N/A 04/16/2025 Procedure: RIGHT HEART CATHETERIZATION [id number] with leave-in Varina; Surgeon: Felicitas Rodgers DO; Location: [facility] CARDIAC [facility] D[facility]; Service: Cardiovascular; Laterality: N/A; with leave-in SGC CARDIAC CATHETERIZATION N/A 05/02/2025 Procedure: RIGHT HEART CATHETERIZATION 06204; Surgeon: Felicitas Rodgers DO; Location: [facility]; Service: Cardiovascular; Laterality: N/A; with leave in Pulmonary artery catheter CARDIAC CATHETERIZATION N/A 05/02/2025 Procedure: RIGHT HEART CATHETERIZATION CORONARY ARTERY AND GRAFT ANGIOGRAM [id number]; Surgeon: Felicitas Rodgers DO; Location: [facility]; Service: Cardiovascular; Laterality: N/A; CARDIAC CATHETERIZATION N/A 05/17/2025 Procedure: RIGHT HEART CATHETERIZATION [id number]; Surgeon: Vannesa Gibbs MD; Location: [facility]; Service: Cardiovascular; Laterality: N/A; replace swan for status 2 e exception CARDIAC CATHETERIZATION N/A 06/03/2025 Procedure: ENDOMYOCARDIAL BIOPSY [id number]; Surgeon: Rodney Newsome MD PhD; Location: [facility] C[facility]; Service: Cardiovascular; Laterality: N/A; COLONOSCOPY HEART TRANSPLANT N/A 05/20/2025 Procedure: TRANSPLANT HEART UNOS:[id number]; Surgeon: Addy Tapia MD; Location: [facility] OR POD 3; Service: Cardiothoracic; Laterality: N/A; LAPAROSCOPIC CHOLECYSTECTOMY LASIK THYROIDECTOMY, PARTIAL Family History Family history unknown: Yes Social History Tobacco Use Smoking status: Never Passive exposure: Never Smokeless tobacco: Never Vaping Use Vaping status: Never Used Substance and Sexual Activity Alcohol use: Not on file Drug use: Never Sexual activity: Not Currently Partners: Female control/protection: None Social History Social History Narrative Not on file Review of Systems Review of Systems Constitutional: Negative for chills and fever. HENT: Negative for ear pain and sore throat. Eyes: Negative for pain and visual disturbance. Respiratory: Negative for cough and shortness of breath. Cardiovascular: Negative for chest pain and palpitations. Gastrointestinal: Negative for abdominal pain and vomiting. Genitourinary: Negative for dysuria and hematuria. Musculoskeletal: Negative for arthralgias and back pain. Skin: Negative for color change and rash. Neurological: Negative for seizures and syncope. All other systems reviewed and are negative. Physical Exam ED Triage Vitals [06/12/25 1848] Temp Pulse Resp BP SpO2 36.7 ??C (98 ??F) 67 18 110/53 98 % Temp src Heart Rate Source Patient Position BP Location FiO2 (%) -- -- -- -- -- Height Height Method Weight Weight Method 1.829 m (6') Stated 79.4 kg (175 lb) Stated Physical Exam Vitals and nursing note reviewed. Constitutional: General: He is not in acute distress. Appearance: He is well-developed. He is not ill-appearing. HENT: Head: Normocephalic. Comments: Has a large 2 cm dot lake of skin missing from the right forehead. Unable to close due to the size. Hemostatic. Large right periorbital hematoma forming Mouth/Throat: Mouth: Mucous membranes are moist. Pharynx: Oropharynx is clear. Eyes: General: No scleral icterus. Extraocular Movements: Extraocular movements intact. Conjunctiva/sclera: Conjunctivae normal. Pupils: Pupils are equal, round, and reactive to light. Comments: No signs of entrapment Cardiovascular: Rate and Rhythm: Normal rate and regular rhythm. Pulses: Normal pulses. Heart sounds: No murmur heard. Pulmonary: Effort: Pulmonary effort is normal. No respiratory distress. Breath sounds: Normal breath sounds. No wheezing, rhonchi or rales. Abdominal: General: There is no distension. Palpations: Abdomen is soft. Tenderness: There is no abdominal tenderness. There is no guarding or rebound. Comments: Pelvis stable Musculoskeletal: General: No swelling, tenderness or deformity. Cervical back: Neck supple. No tenderness (No midline spinal tenderness). Right lower leg: No edema. Left lower leg: No edema. Comments: 5/5 strength in infant lead teacher, arm flexion/extension, shoulder flexion/extension bilaterally 5/5 strength in hip flexion/extension, knee flexion/extension, and foot plantar and dorsiflexion bilaterally Skin: General: Skin is warm and dry. Capillary Refill: Capillary refill takes less than 2 seconds. Neurological: General: No focal deficit present. Mental Status: He is alert and oriented to person, place, and time. Cranial Nerves: No cranial nerve deficit. Sensory: No sensory deficit. Motor: No weakness. Gait: Gait normal. Psychiatric: Mood and Affect: Mood normal. Behavior: Behavior normal. [facility] Medical Decision Making Patient is a 60-year-old male who is coming in for evaluation of a fall earlier today. Denies any syncope, loss of consciousness. Did have head strike and has abrasions to his face as well as his arms and legs. All abrasions are hemostatic, no need for laceration repairs. No obvious deformities andindicative of extremity fractures. He has low concern for intracranial hemorrhage, Karnes C-spinestates that CT is unnecessary based on his clinical picture. He is not on any blood thinners or antiplatelet medications. His sternotomy scar appears to be well healed and shows no tenderness over midline at this time. Low concern for traumatic injuries besides abrasions. No need for additional imaging. He has a normal gait. Low concern for syncopal fall as this was mechanical in nature. He had no loss of consciousness. No need for CT head at this time as Karnes C-spine rules out need. We will update tetanus gabi is unsure when his last booster was. Dispo: Discharge. Amount and/or Complexity of Data Reviewed ECG/medicine tests: ordered and independent interpretation performed. Risk Prescription drug management. Attending Summary of Care ED Course as of 06/12/252041 Time: 06/12 2013 Comment: I have seen and examined this patient, I have discussed/reviewed the history, physical exam and assessment with the resident. We are in agreement with treatment plan except as I have noted. Non-Patient sources of history: additional verbal hx obtained from family. Neg by cape verde[place] head CT rules. No repairable lacerations on exam. Stable for discharge with local wound care, topical abx, tetanus updated, strict return precautions. Yossi Hodges MD 06/12/2025 By: Yossi Hodges MD Fall, initial encounter Multiple abrasions Periorbital hematoma of right eye History of heart transplant (HCC) Burke Hu MD Resident 06/12/252041 Cosigned by Yossi Hodges MD at 06/12/2025 10:30 PM CDT * Daria Marquez RN - 06/12/2025 7:15 PM CDT Bed: [id number] Expected date: Expected time: Means of arrival: Comments: Jennifer Hagen pt- WR Daira Marquez RN 06/12/251914 * Rdaha Kwok RN - 06/12/2025 6:51 PM CDT Pt explained today was the first day he was allowed outside since being discharged 06/11/2025 aftera heart transplant on 05/21/2025. Pt reports walking with steady gait no syncopal episode no dizziness. Pt explained he had been sitting in a chair outside for a few hours and hadnt realized that hislegs had gone numb from where the chair was pushing on the back of his legs and then when he went to stand he fell and hit his head/face on the concrete. Pt has noted abrasions to bilateral arms and bruising and noted swelling to right eye and abrasion on nose. Not on blood thinners [id number]. documented in this encounter Miscellaneous Notes * Plan of Care - Alma Curtis RN - 06/12/2025 8:31 PM CDT As part of the readmission prevention initiative, ED CM receives an automated alert on patient who was discharged from [facility] inpatient admission </=7 days (DC 06/11/25; ED treatment team aware). Pt presents to ED cc: per chart review, pt was evaluated, treated, cleared and discharged from the ED s/p Fall after standing, no syncopal episode no dizziness. Chart review completed. Upcoming scheduled appts per [facility] EMR include: Identified high risk SDOH (social determinants of health) include: No ED CM needs identified at this time, but please contact ED CM ([phone]) for questions and/or prior to admission order placed so that alternatives to admission (if any) can be discussed. * ED Procedure Note - Danny Rae MD - 06/12/2025 7:05 PM CDTAssociated Order(s): ECG 12 lead Procedure ECG 12 lead Date/Time: 06/12/2025 7:05 PM Performed by: Danny Rae MD Authorized by: Tripp Mcgraw MD Rate: ECG rate: 102 ECG rate assessment: tachycardic Rhythm: Rhythm: sinus tachycardia Ectopy: Ectopy: none QRS: QRS axis: Normal QRS intervals: Normal Conduction: Conduction: normal ST segments: ST segments: Normal T waves: T waves: normal Previous ECG: Previous ECG: Compared to current Date of previous EC05/28/2025 Interpretation: Interpretation: No significant change Recommended Follow-up: Recommended follow up: further workup in the ED Danny Rae MD 06/12/25 1906 documented in this encounter Plan of Treatment Upcoming Encounters Date Type Department Care Team (Latest Contact Info) Description 06/17/2025 12:00 PM CDT Hospital Encounter [address] [place] [address] [address] [place] [address] Rodney Newsome MD PhD [address] [place] [address] 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) 06/17/2025 12:00 PM CDT - 06/17/2025 12:30 PM CDT Surgery [address] [place] [id number] Rodney Newsome MD PhD [address] [place] [address] ENDOMYOCARDIAL BIOPSY [id number] documented as of this encounter Procedures Procedure Name Priority Date/Time Associated Diagnosis Comments ECG 12-LEAD STAT 06/12/2025 7:05 PM CDT documented in this encounter Results * ECG 12-LEAD (06/12/2025 7:05 PM CDT) Narrative [facility] - 06/12/2025 7:05 PM CDT Danny Rae MD 06/12/2025 7:06 PM ECG 12 lead Date/Time: 06/12/2025 7:05 PM Performed by: Danny Rae MD Authorized by: Tripp Mcgraw MD Rate: ECG rate: 102 ECG rate assessment: tachycardic Rhythm: Rhythm: sinus tachycardia Ectopy: Ectopy: none QRS: QRS axis: Normal QRS intervals: Normal Conduction: Conduction: normal ST segments: ST segments: Normal T waves: T waves: normal Previous ECG: Previous ECG: Compared to current Date of previous EC05/28/2025 Interpretation: Interpretation: No significant change Recommended Follow-up: Recommended follow up: further workup in the ED Procedure Note Danny Rae MD - 06/12/2025 7:05 PM CDT Procedure ECG 12 lead Date/Time: 06/12/2025 7:05 PM Performed by: Danny Rae MD Authorized by: Tripp Mcgraw MD Rate: ECG rate: 102 ECG rate assessment: tachycardic Rhythm: Rhythm: sinus tachycardia Ectopy: Ectopy: none QRS: QRS axis: Normal QRS intervals: Normal Conduction: Conduction: normal ST segments: ST segments: Normal T waves: T waves: normal Previous ECG: Previous ECG: Compared to current Date of previous EC05/28/2025 Interpretation: Interpretation: No significant change Recommended Follow-up: Recommended follow up: further workup in the ED Danny Rae MD 06/12/25 1906 us Yossi Hodges MD ECG ORDERABLES Final Resu lt [facility] documented in this encounter Visit Diagnoses Diagnosis 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)- Primary 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 Fall, initial encounter- Primary Multiple abrasions Periorbital hematoma of right eye History of heart transplant (HCC) 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) 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 documented in this encounter Active and Recently Administered Medications Times are shown in CDT. 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 Specials protocols are implemented when working with a patient testing positive for C. Auris. 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 05/07/2025 05/07/2025 documented as of this encounter Care Teams Agricultural Services Director Relationship Specialty Start Date End Date Anuel Vargas DO PCP - General Internal Medicine 10/19/22 Justin Flowers MD [address] DIV IM BONE MARROW TRANSPLANT[address] [place] [address] Consulting Physician Medical Oncology 10/06/23 Erlin Chong MD [address] DIV IM BONE MARROW TRANSPLANT, [address] [place] [address] Referring Physician Cardiology 10/06/23 Alexandra Powell, RN [address] [facility] [address] [place] [address] Toy Mechanic Transplant 05/21/25 documented as of this encounter
--- OUTSIDE RECORDS SUMMARY | 2025-06-13 14:40 | XMS_ITS | Encounter Summary ---
Author Organization [facility] Address [address] [place] [address] Phone Care Team Providers Care Television And Radio Repairer Name Role Phone Anuel Vargas Primary Care Provider [phone] Justin Flowers MD Unavailable Erlin Chong MD Unavailable Katerina Romero RN Unavailable Unavailable Alexandra Powell RN Unavailable [phone] Encounter Details Date Type Department Care Team (Late st Contact Info) Description 02/13/2024 Telephone [facility] Bone Marrow Transplant [address] [facility] [address]th [address], [place] [address] Alma Carranza V. Social History Tobacco Use Types Packs/Day Years Used Date Smoking Tobacco: Never Cigarettes Smokeless Tobacco: Never [facility] Utilities Answer Date Recorded In the past 12 months has [employer], gas, oil, or water [employer] threatened to shut off services in your home? No 11/28/2023 Social Connection and Isolat ion Panel [NHANES] Answer Date Recorded In a typical week, how many times do you talk on the phone with family, friends, or neighbors? More than three times a week 11/28/2023 How often do you get togethe r with friends or relatives? Once a week 11/28/2023 How often do you attend caro center or mosque services? Never 11/28/2023 Do you belong to any clubs o r organizations such as judaism groups, unions, fraternal or athletic groups, or school groups? No 11/28/2023 How often do you attend meet ings of the clubs or organizations you belong to? Never 11/28/2023 Are you , , di vorced, , never , or living with a partner? 11/28/2023 AUDIT-C Answer Date Recorded Q1: How often do you have a drink containing alcohol? Never 11/27/2023 Q2: How many drinks containi ng alcohol do you have on a typical day when you are drinking? Patient does not drink Q3: How often do you have si x or more drinks on one occasion? Never 11/27/2023 Overall Financial Resource Strain (CARDIA) Answe r Date Recorded How hard is it for you to pa y for the very basics like food, housing, medical care, and heating? Not hard at all 11/28/2023 Hunger Vital Sign Answer Date Recorded Within the past 12 months, y ou worried that your food would run out before you got the money to buy more. Never true 11/28/19 24 Within the past 12 months, t he food you bought just didn't last and you didn't have money to get more. Never true 11/28/2023 PRAPARE - Transportation Answer Date Re corded In the past 12 months, has l ack of transportation kept you from medical appointments or from getting medications? No 06/2024 In the past 12 months, has l ack of transportation kept you from meetings, work, or from getting things needed for daily living? No 11/28/2023 Housing Stability Vital Sign Answer [place] e [...] to sleep or slept in a senior care (including now)? No 11/28/2023 Personal Safety Answer Date Recorded Have you ever been in or are you currently in a harmful physical or emotional relationship or is someone making you feel afraid or unsafe? 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 auris Comment:04/15/25: Negative C. [...] documented as of this encounter Care Teams Television And Radio Repairer Relationship Specialty Start Date End Date Anuel Vargas DO PCP - General Internal Medicine 10/19/22 Justin Flowers MD [address] DIV IM BONE MARROW TRANSPLANT[address] [place] [address] Consulting Physician Medical Oncology 10/06/23 Erlin Chong MD [address] DIV IM BONE MARROW TRANSPLANT[address] [place] [address] Referring Physician Cardiology 10/06/23 Katerina Romero, inserting machine operatorCarpenter Helper Cardiothoracic Surgery 04/03/25 05/20/25 Alexandra Powell, CECE [address] [facility] [address] [place], [place] [id number] Carpenter Helper Transplant 05/21/25 documented as of this encounter
--- OUTSIDE RECORDS SUMMARY | 2025-06-13 14:40 | XMS_ITS ---
Author Organization [facility] Address [address] [place] [address] Care Team Providers Care Assistant Operator Name Role Phone Alicia Anuel Pardeep CASTRO Primary Care Provider + [phone] Justin Flowers MD Unavailable Erlin Chong MD Unavailable [phone] Alexandra Powell RN Unavailable [phone] Transplant Episode Heart Recipient [facility] ([place], [place]) - [facility] Organ Received: Heart Transplanted on 05/21/2025 Marked as Active Follow-up on 05/21/2025 Heart CoordinatorAlexandra Powell RN Fax: N/A Email: N/A [place] Organ Diagnosis 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 Donor Information Organ ABO Source Meets Risk Criteria HLA Match Mismatches Cross Match Heart Transplanted O DBD Yes A: B: DR: T cell (Negative) B cell (Negative) Heart Donor Serology Results Anti-CMV CMV IgG: Positive Anti-HBcAb HBC Total: Negative HBsAg HBsAg: Negative HBV DNA No results on file Anti-HCV HCV: Positive Anti-HIV I/II No results on file Anti-HTLV I/II HTLV: Not Done RPR/VDRL RPR: Negative HBsAb HBsAb: Not Done SARS CoV-2 No results on file Care Team Name Role Phone Fax Email Alexandra Powell RN House Piping Inspector [phone] N/A N/A Addy Tapia MD Surgeon [phone] N/A Events Post-Transplant Pre-Transplant Admitted: 04/08/2025 Referred: 04/08/2025 Transplanted: 05/21/2025 Evaluation began: Discharged: 06/11/2025 Committee: 04/12/2025 Center waitlisted: 5
--- OUTSIDE RECORDS SUMMARY | 2025-06-13 14:40 | XMS_ITS | Encounter Summary ---
Author Organization [facility] Address [address] [place] [address] Phone Care Team Providers Care Bonding Supervisor Name Role Phone Anuel Vargas Primary Care Provider [phone] Justin Flowers MD Unavailable Erlin Chong MD Unavailable Alexandra Powell RN Unavailable [phone] Encounter Details Date Type Department Care Team (Late st Contact Info) Description 06/07/2025 Documentation [facility] Endocrinology Metabolism and Lipid [address] [facility] [address] 13th [place] [address] [place] [address] Carolyn Ponce MD [address] [place], [place] [id number] Social History Tobacco Use Types Packs/Day Years Used Date Smoking Tobacco: Never Passive Smoke Exposure: Never Smokeless Tobacco: Never [facility] Utilities Answer Date Recorded In the past 12 months has [employer], gas, oil, or water company threatened to [...] often do you attend chur ch or zoroastrianism services? Never 04/10/2025 Do you belong to any clubs o r organizations such as restorationism groups, unions, fraternal or athletic groups, or [...] place to sleep or slept in a [facility] (including now)? No 11/28/2023 PHQ-9 Answer Date [...] any time in the past 12 m [facility], were you homeless or living in a [facility] (including now)? No 04/10/2025 Personal Safety Answer Date Recorded Have you ever been in or are you currently in a harmful physical or emotional relationship or is someone making you feel afraid or unsafe? 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) 06/17/2025 12:00 PM CDT - 06/17/2025 12:30 PM CDT Surgery [address] [place] [address] Rodney Newsoem MD PhD [address] [place] [address] ENDOMYOCARDIAL BIOPSY [address] documented as of this encounter Visit Diagnoses [...] documented as of this encounter Care Teams Bonding Supervisor Relationship Specialty Start Date End Date Anuel Vargas DO PCP - General Internal Medicine 10/19/22 Justin Flowers MD [address] DIV IM BONE MARROW TRANSPLANT[address] [place] [address] Consulting Physician Medical Oncology 10/06/23 Erlin Chong MD [address] DIV IM BONE MARROW TRANSPLANT, [address] [place] [address] Referring Physician Cardiology 10/06/23 Alexandra Powell, CECE [address] [facility] [address] [place] [address] Stay Cutter Transplant 05/21/25 documented as of this encounter
--- OUTSIDE RECORDS SUMMARY | 2025-06-13 14:40 | XMS_ITS | Continuity of Care Document ---
Author Name [facility] Organization [facility] Care Team Providers Care Warehouse Delivery Driver Name Role Phone [facility] Unavailable Unavailable Problems Combined list of problems from Department of Defense and Veterans Affairs facilities. It does not include entries that were removed or entered in error. Problem Status Onset Date Problem Type Date of Resolution Comments Source DYSLIPIDEMIA Active Condition DoD HYPERTENSION (SYSTEMIC) Active Condition DoD PREDIABETES (IMPAIRED GLUCOSE TOLERANCE) Active Condition DoD Vaccines Prophylactic Need Against DTP Inactive Condition DoD visit for: routine adult H&P Inactive Condition [facility] visit for: administrative purpose Inactive Condition DoD THYROID DISORDERS Active Condition DoD HEMANGIOMA Inactive Condition DoD OBESITY Active Condition DoD ACUTE REACTION TO STRESS Active Condition DoD CERVICALGIA Active Condition Recommen ded a course of NSAIDS. Will try Flexerel @ bedtime. Disccussed some stretches/strengt hening exercises. Will pursue PT. If pt still without significant improvement in symptoms in 4 weeks, a f/u appt was recommended. DoD ANKLE SPRAIN ANTERIOR TALOFIBULAR LIGAMENT LEFT Active Condition 1. Given exercises from [place] to begin immediately.2. Patient already moving around and walking- so no immobilization recommended.3. We did not have Air Cast in clinic and patient declined Rx for the same.4. Advised rest, ice, elevation, and Motrin for pain if needed.- patient has motrin at home.5. f/u if no better in 2 weeks.[facility] d/w Dr. Enamorado. [facility] Need For Vaccination Yellow Fever Inactive Condition DoD Medications Combined list of outpatient medications from Department of Defense and Veterans Affairs facilities.Medications provided include 1) outpatient medications from the last 15 months, and 2) patient-reported medications. Medication Details Route Status Patient Instructions Prescription Expires Prescription Number Last Dispense Date Ordering Provider Order Date Order Qty Source acetaminoph en 325 mg tablet = 2 tab(s), Oral, 1 to 3 hours prior to each daratumu mab dose, # 60 EA, 0 total refill(s ), Soft Stop Oral (given by mouth) Ordered 5 2024 60.0 Ambulat ory Pharmac y albuterol 90 mcg/inh inhalation aerosol INHALE 2 PUFFS EVERY SIX HOURS NEEDED FOR WHEEZING , # 25.5 g, 1 total refill(s ), Acute Complet ed 10/24/20232022 25.5 Ambulat ory Pharmac y APIXABAN 5 MG ORAL TAB Take or use exactly as directed .Obtain advice for OTCs.Ana Laura ck with your doctor before becoming . 05/01/2025 [id number] 4 2023 60 [employer] Raman BOYCE [place] apixaban 5 mg tablet 5 mg, Oral, BID, # 60 EA, 11 total refill(s ), Hard Stop Oral (given by mouth) Complet ed 05/01/2025 5 2024 60.0 Ambulat ory Pharmac y atenolol 25 mg oral tablet TAKE ONE TABLET DAILY, # 90 EA, 1 total refill(s ), Acute Complet ed 12/09/2023 3 2023 90.0 Ambulat ory Pharmac y bortezomib 1.3 mg/m2, IV Drip (Intrave nous), every week, 0 total refill(s ), Maintena nce Intrav enous Drip Ordered 20235C- [facility] [place] cycloPHOSph amide 1 mg/kg, Oral, Daily, 0 total refill(s ), Maintena nce Oral (given by mouth) Ordered 20235C-3 [facility] [employer] [place] cycloSPORIN E 0.05% ophthalmic emulsion cycloSPO RINE 0.05% ophthalm ic emulsion Start Date: 04/04/19 Status: Ordered Repeat number: 1 Ordered 2018 No Facilit y Access daratumumab 1,120 mg, IV Drip (Intrave nous), 0 total refill(s ), Maintena nce Intrav enous Drip Ordered 20235C-3 [facility] [place] dicyclomine 10 mg capsule See Instruct ions, Oral, # 360 EA, 0 total refill(s ), Hard Stop Oral (given by mouth) Discont inued 06/15/2024 3 2023 360.0 Ambulat ory Pharmac y digoxin (U/D) 125 MCG ORAL TAB Take or use exactly as directed . 05/01/2025 [id number] 4 2023 30 [employer] Raman CHAUDHARYB ([facility] digoxin 125 mcg (0.125 mg) tablet 125 mcg, Oral, Daily, # 30 EA, 11 total refill(s ), Hard Stop Oral (given by mouth) Complet ed 05/01/2025 5 2024 30.0 Ambulat ory Pharmac y diphenhydrA MINE 25 mg capsule = 1 cap(s), Oral, 1 to 3 hours prior to each daratumu mab dose, # 30 EA, 0 total refill(s ), Soft Stop Oral (given by mouth) Ordered 5 2024 30.0 Ambulat ory Pharmac y droxidopa 100 mg oral capsule 1 cap(s), Oral, TID, 0 total refill(s ), Maintena nce Oral (given by mouth) Ordered 2023 0055C-3 [facility] EMPAGLIFLOZ IN 10 MG ORAL TAB Check with your doctor before becoming . 10/03/2024 [id number] 3 2023 90 [employer] [facility] Raman CHAUDHARYB [place] empaglifloz in 10 mg tablet = 1 tab(s), Oral, Daily, # 90 EA, 3 total refill(s ), Hard Stop Oral (given by mouth) Ordered 11/29/2025 5 2024 90.0 Ambulat ory Pharmac y esomeprazol e DR 40 mg capsule 40 mg, Oral, Daily, # 90 EA, 0 total refill(s ), Hard Stop Oral (given by mouth) Discont inued 11/17/2023 3 2022 90.0 Ambulat ory Pharmac y fluticasone CFC free 220 mcg/inh inhalation aerosol INHALE TWO PUFFS BY MOUTH TWICE A DAY *RINSE MOUTH WITH WATER AFTER USE. DO NOT SWALLOW* , # 36 g, 1 total refill(s ), Acute Complet ed 10/24/2023 12/05/202 2 2022 36.0 Ambulat ory Pharmac y furosemide 20 mg tablet 20 mg, Oral, Daily, # 90 EA, 1 total refill(s ), Hard Stop Oral (given by mouth) Discont inued 12/27/2023 3 2023 90.0 Ambulat ory Pharmac y furosemide 40 mg tablet 40 mg, Oral, Daily, # 90 EA, 3 total refill(s ), Hard Stop Oral (given by mouth) Discont inued 12/27/2023 3 2023 90.0 Ambulat ory Pharmac y Jardiance 10 mg tablet 10 mg, Oral, Daily, # 90 EA, 3 total refill(s ), Hard Stop Oral (given by mouth) Complet ed 10/03/2024 4 2023 90.0 Ambulat ory Pharmac y losartan 25 mg tablet See dose instruct ions in comments , # 45 EA, 3 total refill(s ), Acute Complet ed 02/28/2024 3 2023 45.0 Ambulat ory Pharmac y metoprolol succinate ER 25 mg/24 hour tablet 25 mg, Oral, Daily, # 90 EA, 3 total refill(s ), Hard Stop Oral (given by mouth) Discont inued 02/24/2024 4 2023 90.0 Ambulat ory Pharmac y metoprolol succinate ER 25 mg/24 hour tablet See Instruct ions, # 45 EA, 3 total refill(s ), Hard Stop Discont inued 12/06/2023 3 2023 45.0 Ambulat ory Pharmac y midodrine 10 mg oral tablet 1 tab(s), Oral, TID, # 270 tab(s), 0 total refill(s ), Maintena nce Oral (given by mouth) Ordered 2023 270.0 0055C-3 [facility] [employer] midodrine 10 mg tablet See Instruct ions, # 90 EA, 6 total refill(s ), Hard Stop Discont inued 04/19/2024 4 2023 90.0 Ambulat ory Pharmac y midodrine 2.5 mg tablet 2.5 mg, Oral, TID, # 90 EA, 3 total refill(s ), Hard Stop Oral (given by mouth) Discont inued 01/02/2024 4 2023 90.0 Ambulat ory Pharmac y ondansetron 4 mg ODT See Instruct ions, # 60 EA, 2 total refill(s ), Hard Stop Discont inued 01/31/2024 3 2023 60.0 Ambulat ory Pharmac y ondansetron 8 mg ODT See Instruct ions, # 1 EA, 0 total refill(s ), Hard Stop Complet ed 05/01/2025 4 2024 1.0 Ambulat ory Pharmac y pantoprazol e 40 mg oral delayed release tablet TAKE ONE TABLET DAILY, # 30 EA, 5 total refill(s ), Acute Complet ed 05/31/2023 3 2022 30.0 Ambulat ory Pharmac y pantoprazol e EC 40 mg tablet 40 mg, Oral, Daily, # 30 EA, 1 total refill(s ), Hard Stop Oral (given by mouth) Discont inued 12/27/2023 3 2023 30.0 Ambulat ory Pharmac y pantoprazol e EC 40 mg tablet 40 mg, Oral, Daily, # 90 EA, 0 total refill(s ), Hard Stop Oral (given by mouth) Discont inued 04/11/2024 4 2023 90.0 Ambulat ory Pharmac y pantoprazol e EC 40 mg tablet 40 mg, Oral, Daily, # 30 EA, 10 total refill(s ), Hard Stop Oral (given by mouth) Discont inued 10/26/2023 3 2022 30.0 Ambulat ory Pharmac y Potassium Chloride (Eqv-K-Tab) Oral, BID, 0 total refill(s ), Maintena nce Oral (given by mouth) Ordered 2023 0055C-[address] [place] [address] potassium chloride ER 10 mEq tablet (dispersibl e) 20 mEq, Oral, Daily, # 180 EA, 3 total refill(s ), Hard Stop Oral (given by mouth) Discont inued 01/31/2024 4 2023 180.0 Ambulat ory Pharmac y spironolact one 25 mg tablet 25 mg, Oral, Daily, # 90 EA, 2 total refill(s ), Hard Stop Oral (given by mouth) Complet ed 07/14/2024 4 2023 90.0 Ambulat ory Pharmac y torsemide Oral, Daily, 0 total refill(s ), Maintena nce Oral (given by mouth) Ordered 2023 0055C-3 [facility] Raman torsemide 20 mg tablet 20 mg, Oral, Daily, # 30 EA, 3 total refill(s ), Hard Stop Oral (given by mouth) Ordered 07/06/2025 5 2024 30.0 Ambulat ory Pharmac y torsemide 20 mg tablet 80 mg, Oral, # 180 EA, 11 total refill(s ), Hard Stop Oral (given by mouth) Discont inued 02/24/2024 4 2023 180.0 Ambulat ory Pharmac y torsemide 20 mg tablet See Instruct ions, # 90 EA, 3 total refill(s ), Hard Stop Discont inued 01/02/2024 4 2023 90.0 Ambulat ory Pharmac y torsemide 20 mg tablet = 1 tab(s), Oral, Daily, # 90 EA, 3 total refill(s ), Soft Stop Oral (given by mouth) Ordered 5 2024 90.0 Ambulat ory Pharmac y torsemide 20 mg tablet See Instruct ions, # 180 EA, 3 total refill(s ), Hard Stop Discont inued 03/16/2024 4 2023 180.0 Ambulat ory Pharmac y Xifaxan 550 mg tablet 550 mg, Oral, TID, # 42 EA, 0 total refill(s ), Hard Stop Oral (given by mouth) Complet ed 04/11/2025 4 2024 42.0 Ambulat ory Pharmac y Allergies, Adverse Reactions, Alerts Combined list of allergies from Department of Defense and Veterans Affairs facilities. It does not include entries that were removed or entered in error. Substance Category Reaction Severity Reaction type Status Date Reported Comments Source No Known Allergies Drug allergy (disorder) active 02/27/2008 [facility] Immunizations Combined list of available immunizations from the Department of Defense and Veterans Affairs facilities. Immunization Series Date Given Administered By Site Reaction Lot Number CVX Code Drug Catechist Status Comments Source COVID-19, mRNA, LNP-S, PF, 30 mcg/0.3 mL dose, pamela-sucrose 2021 LOKI, [employer] [place] (PFR) Not Given COVID-19, mRNA, LNP-S, PF, 30 mcg/0.3 mL dose, pamela-sucr ose DoD zoster vaccine recombinant 1 2021 Unknown, Provider [id number] [address] [place] [address] ([facility]) complet ed zoster vaccine recombina nt DoD zoster vaccine recombinant 1 2021 Unknown, Provider [id number] [address] [place] [address] ([facility]) complet ed zoster vaccine recombina nt DoD COVID-19, mRNA, LNP-S, PF, 30 mcg/0.3 mL dose 2021 EHSAN, [employer] [place] (PFR) Not Given COVID-19, mRNA, LNP-S, PF, 30 mcg/0.3 mL dose DoD Influenza, injectable, MDCK, preservative free, quadrivalent 2020 ALUL, () Not Given Influenza , injectabl e, MDCK, preservat meme free, quadrival ent DoD Influenza, injectable, MDCK, preservative free, quadrivalent 2019 ALUL, () Not Given Influenza , injectabl e, MDCK, preservat meme free, quadrival ent DoD influenza, injectable, quadrivalent, preservative free 2018 ALUL, () Not Given influenza , injectabl e, quadrival ent, preservat meme free DoD tetanus, diphtheria, acellular pertu is 2012 [id number] 115 [facility] ed tetanus, diphtheri a, acellular pertussis 05/03/13 Given Ambulat ory Pharmac y tetanus toxoid, reduced diphtheria toxoid, and acellular pertu is vaccine, adsorbed 1 2012 [id number] [address] [place] [address] ([facility]) complet ed tetanus toxoid, reduced diphtheri a toxoid, and acellular pertussis vaccine, adsorbed DoD yellow fever vaccine 2004 zzLef t Arm [id number] sanofi pasteur complet ed yellow fever vaccine 04/07/05 Given Ambulat ory Pharmac y yellow fever vaccine 1 2004 Unknown, Provider [id number] Sanofi Pasteur ([facility]) complet ed yellow fever vaccine DoD vaccinia (smallpox) vaccine 2002 [id number] complet ed vaccinia (smallpox ) vaccine 12/31/02 Given Ambulat ory Pharmac y vaccinia (smallpox) vaccine 0 2002 Unknown, Provider [id number] [facility] complet ed vaccinia (smallpox ) vaccine DoD Encounters Combined list of: 1) Encounters from Department of Veterans Affairs facilities going backup to the last 18 months, not all VA inpatient encounters are included; 2) Encounters from the Department of Defense facilities going backup to 280 months. Location Location Details Encounter Type Encounter Number Reason For Visit Attending Provider ADM Date DC Date Status Disposition Source [facility] OUTPATIENT [id number] yf MATTYELIJAH 04/07 Released w/o Limitations [facility] [address] [place] [address] Raman BOYCE [facility]Sco tt [facility] FAMRES Tm Blue) OUTPATIENT [id number] left foot pain fr YONNY Bowling 09/22 Released w/o Limitations [address] [place] [address] Raman BOYCE [facility]S cott [facility] Tm Blue) [address] [place] [address] Group Raman BOYCE [place]co [place] [facility] Fam Res Tm Green) OUTPATIENT [id number] upper back pain BARBI GUADALUPE 02/26 Released w/o Limitations [address] [place] [address] Raman BOYCE ([facility]S cott [facility] Fam Res Tm Green) [address] [place] [address] Raman BOYCE [facility]Sco tt [facility] Fam Res Tm Green) OUTPATIENT [id number] abd pain... .[phone]..... GELA LEMONS 08/20 Released w/o Limitations [address] [place] [address] Raman CHAUDHARYDiana ([facility]S cott [facility] Fam Res Tm Green) [address] [place] [address] Raman CHAUDHARYB [facility]Sco tt [facility] Fam Res Tm Green) OUTPATIENT [id number] Abdomen pain-po ssibly associa te w/appen efrem [phone] VISHNU CHAN 02/25 Released w/o Limitations [address] [place] [address] aRman CHAUDHARYB [facility]S cott [facility] Fam Res Tm Green) [address] [place] [address] Raman JETB ([facility]Sco tt [facility] Fam Res Tm Green) OUTPATIENT [id number] growth on back of neck [id number] VJ TARIQ 03/26 Released w/o Limitations [address] [place] [address] Raman JETB [facility]S cott [facility] Fam Res Tm Green) [address] [place] [address] Raman JETB [facility]Sco tt [facility] Fam Res Tm Green) TELE CONSULT [id number] Notes Entered by: ADAM BROWER 28 Jul 201220 ------- ------- ------- ------- -- Eye redness /discom fort-Carlos benz/Luiz [id number] /BARBI Lombardi 07/28 Referred for Appointment [address] [place] [address] Raman JETDiana ([facility]S cott [facility] Fam Res Tm Green) [address] [place] [address] Raman JETB [place]Sco tt [facility] Fam Res Tm Green) OUTPATIENT [id number] physica l - [id number] SAGAR BENÍTEZ 05/03 Released w/o Limitations [address] [place] [address] Raman JETB ([facility]S cott [facility] Fam Res Tm Green) [address] [place] [address] Raman JETB [facility]Sco tt [facility] Fam Res Tm Green) OUTPATIENT [id number] physica l- ALEIDA ALY 06/10 Released w/o Limitations [address] [place] [address] [employer] ([facility]S cott [facility] Fam Res Tm Green) [address] [place] [address] Raman JETB [facility]Sco tt [facility] Fam Res Tm Green) OUTPATIENT [id number] high cholest errol, high blood pressur e FRANDY BUSTILLO 09/25 Released w/o Limitations [address] [place] [address] Raman CHAUDHARYB [facility]S cott [facility] Fam Res Tm Green) [address] [place] [address] Raman CHAUDHARYB [facility]Sco tt [facility] Fam Res Tm Green) OUTPATIENT [id number] f/u high bp CINDY SOTO 10/22 Released w/o Limitations [address] [place] [address] Raman CHAUDHARYB [facility]S cott [facility] Fam Res [employer]m Green) [address] [place] [address] Raman CHAUDHARYB [facility]Sco tt [facility] Fam Res Tm Green) OUTPATIENT [id number] f/u high bp CARINE THOMPSON 11/04 Released w/o Limitations [address] [place] [address] Raman CHAUDHARYB [facility]S cott [facility] Fam Res Tm Green) [address] [place] [address] Raman CHAUDHARYB [facility]Sco tt [facility] Fam Res Tm Red) TELE CONSULT [id number] Notes Entered by: LAURO HANEY 06 Nov 2014 1047 ------- ------- ------- ------- -- Diabeti c Educati on. ASHOK SAM 11/06 Referred for Appointment [address] [place] [address] Raman BOYCE [facility]S cott [facility] Fam Res Tm Red) [address] [place] [address] Raman CHAUDHARYB [facility]Sco tt [facility] Fam Res Tm Green) OUTPATIENT [id number] f/u hyperte nsion CARINE THOMPSON 12/11 Released w/o Limitations [address] [place] [address] Raman CHAUDHARYB [facility]S cott [facility] Fam Res Tm Green) [address] [place] [address] [employer] [facility]Sco tt [facility] FAM[facility] Tm Blue) TELE CONSULT [id number] Notes Entered by: LAURO HANEY 13 Apr 2015 1401 ------- ------- ------- ------- -- Lab results CARINE THOMPSON 04/[address] [place] [address] Raman JETB [facility]S cott [facility] Tm Blue) [address] [place] [address] Raman BOYCE [facility]Sco tt OF Fam Res Tm Green) OUTPATIENT [id number] f/u for blood pressur e/ CARINE THOMPSON 04/18 Released w/o Limitations [address] [place] [address] Raman BOYCE ([facility]S cott OF Fam Res Tm Green) [address] [place] [address] Raman CHAUDHARYB [facility]Sco tt [facility] Fam Res Tm Green) TELE CONSULT [id number] Notes Entered by: CASEY JACKSON 09 Jun 2015 1158 ------- ------- ------- ------- -- Sx- Chest Pains (ER refusal )/Doug bryan/61 [phone] TOMMY ANGELO 06/[address] [place] [address] Raman BOYCE [facility]S cott OF Fam Res Tm Green) [address] [place] [address] Raman BOYCE [facility]Sco tt [facility] Fam Res Tm Green) OUTPATIENT [id number] sternal pain daily x30 min CARINE THOMPSON 06/10 Released w/o Limitations [address] [place] [address] Raman BOYCE [facility]S cott OF Fam Res Tm Green) [address] [place] [address] Raman CHAUDHARYB [facility]Sco tt [facility] FAM[facility] Tm Blue) TELE CONSULT [id number] Notes Entered by: EMERALD REID 20 Jun 2015 0919 ------- ------- ------- ------- -- Network Results - CARDIOL OGY- 06/17/15 CARINE THOMPSON 06/[address] [place] [address] Raman JETB [facility]S cott OF FAMRES Tm Blue) [address] [place] [address] Raman JETB [facility]Sco tt [facility] FAMRES Tm Blue) TELE CONSULT [id number] Notes Entered by: LAURO HANEY 17 Jul 2015 1517 ------- ------- ------- ------- -- Lab Results CARINE THOMPSON 07/[address] [place] [address] Raman JETDiana [facility]S cott [facility] Tm Blue) [address] [place] [address] Raman [facility])(Sco tt [facility] Fam Res Tm Green) OUTPATIENT [id number] f/u for bp [id number] CARINE THOMPSON 07/23 Released w/o Limitations [address] [place] [address] Raman BOYCE [facility]S cott [facility] Fam Res Tm Green) [address] [place] [address] Raman [facility])(Sco tt [facility] Fam Res Tm Green) TELE CONSULT [id number] Notes Entered by: KELLY MORA 15 Sep 2015 0951 ------- ------- ------- ------- -- Network Results -GASTRO ENTEROL OGY 08/29/15 CARINE THOMPSON 09/[address] [place] [address] Raman [facility])(S cott [facility] Fam Res Tm Green) [address] [place] [address] Raman [facility])(Sco tt [facility] Fam Res Tm Green) TELE CONSULT [id number] Notes Entered by: CATALINA SNYDER 22 Sep 2015 0727 ------- ------- ------- ------- -- Blood Pressur e Med Refill/ Dr. Carrington good/ [phone] TOMMY ANGELO 09/[address] [place] [address] Raman [facility])(S cott [facility] Fam Res Tm Green) [address] [place] [address] Raman [facility])(Sco tt [facility] Fam Res Tm Green) TELE CONSULT [id number] Notes Entered by: KELLY MORA 04 Nov 2015 0814 ------- ------- ------- ------- -- Network Results -GASTRO ENTEROL OGY 10/24/15 CARINE AL 11/[address] [place] [address] Raman [facility])(S cott [facility] Fam Res Tm Green) [address] [place] [address] Raman [facility])(Sco tt [facility] FAMRES Tm Blue) TELE CONSULT [id number] Notes Entered by: LAURO HANEY 16 Jan 2016 1125 ------- ------- ------- ------- -- Lab Results CARINE THOMPSON 01/[address] [place] [address] Group [facility] FAMRES Tm Blue) [address] [place] [address] Raman [facility])([facility] Fam Res Tm Green) OUTPATIENT [id number] f/u on high BP [id number] 9 CARINE THOMPSON 01/25 Released w/o Limitations [address] [place] [address])([facility] Fam Res Tm Green) [address] [place] [address] Raman [facility])([facility] ) OUTPATIENT [id number] F/U for BP meds [id number] ROM KUMAR 05/04 Released w/o Limitations [address] [place] [address] Raman [facility])(S cott Interna l Medicin e Tm) [address] [place] [address])([facility] ) TELE CONSULT [id number] Notes Entered by: MARLON POPE 07 Sep 2016 0729 ------- ------- ------- ------- -- Med refill/ Yulissa/ [phone] 9/AYAKA Díaz 09/07 Referred for Appointment [address] [place] [address])([facility] [address] [place] [address])([facility] ) TELE CONSULT [id number] Notes Entered by: Rebecca GOODWIN 09 Sep 2016 1116 ------- ------- ------- ------- -- Medicat ion Not in pharmac y/ Yulissa/ - AYAKA Rojas 09/09 Referred for Appointment [address] [place] [address])([facility] [address] [place] [address])([facility] ) OUTPATIENT [id number] f/u blood pressur e / HORACE BEDOYA V 05/03 Released w/o Limitations [address] [place] [address] [facility])([facility]) [address] [place] [address] [facility])([facility] ) TELE CONSULT [id number] Notes Entered by: EFRAIN LOPEZ 23 Feb 2018 0927 ------- ------- ------- ------- -- Order labs - Celena - [phone] -[phone] - tsg LUIS VILLEGAS 02/23 Referred for Appointment [address] [place] [address] [facility])([facility] [address] [place] [address])([facility] ) OUTPATIENT [id number] annual check up [phone] HORACE BEDOYA V 03/14 Released w/o Limitations [address] [place] [address] [facility])([facility]) [address] [place] [address])([facility] ) TELE CONSULT [id number] Notes Entered by: TANISHA MAYO 31 Jan 2019 1318 ------- ------- ------- ------- -- Referra l request /lubna e/ MORRIS Pendleton 01/31 Other Not Elsewhere Classified [address] [place] [address] [facility])([facility]) [address] [place] [address] [facility])([facility] ) OUTPATIENT [id number] blood pressur e / [phone] ROM KUMAR 04/17 Released w/o Limitations [address] [place] [address] [facility])([facility]) [address] [place] [address] [facility])([facility] ) OUTPATIENT [id number] low back pain and labs [phone] FILIPPO FLANNERY 01/18 Released w/o Limitations [address] [place] [address] [facility])([facility] [address] [place] [address])([facility] ) TELE CONSULT [id number] 6 Notes Entered by: DEBBIE MEDEIROS 18 Feb 2020 1056 ------- ------- ------- ------- -- SX- Intermi ttent Headach e-Nause a-Avawam romario BP x1-2mo/ Rush s/[id number] - [facility] HECTOR BARLOW ANDRES 02/[address] [place] [address])([facility] [address] [place] [address])([facility] ) TELE CONSULT [id number] 3 Notes Entered by: RICA RODGERS RET 22 Apr 2020 1307 ------- ------- ------- ------- -- Appt Request for testing /luba /618. [phone] 9*[facility] AYKAA ACEVEDO 04/22 Referred for Appointment [address] [place] [address])([facility] [address] [place] [address])([facility] ) OUTPATIENT [id number] Virtual - persist ent cough on taking a deep breath x 1 month - [phone] KRYSTLE APONTE 09/23 Released w/o Limitations [address] [place] [address])([facility] [address] [place] [address])([facility] ) TELE CONSULT [id number] Notes Entered by: Shazia APONTE 24 Sep 2020 0801 ------- ------- ------- ------- -- FILIPPO Galeano 09/[address] [place] [address])([facility] [address] [place] [address])([facility] ) OUTPATIENT [id number] Virtual Appt - persist ent cough x months - [phone] FILIPPO FLANNERY 10/20 Released w/o Limitations [address] [place] [address])([facility] [address] [place] [address])([facility] ) TELE CONSULT [id number] Notes Entered by: EUGENIA JEAN 08 Jan 2021 1459 ------- ------- ------- ------- -- Follow up imaging . ABHISHEK FOURNIER 01/08 Other Not Elsewhere Classified [address] [place] [address])([facility] [address] [place] [address])([facility] ) TELE CONSULT [id number] Notes Entered by: EUGENIA JEAN 13 Jan 2021 1312 ------- ------- ------- ------- -- CT results FILIPPO FLANNERY 01/[address] [place] [address])([facility] [address] [place] [address])([facility] ) TELE CONSULT [id number] Notes Entered by: JOHN YAN 15 Jan 2021 0939 ------- ------- ------- ------- -- SX Cancer DX/ PRESTON/ Fax Request / Rush acharya/ MORRIS WOODSON 01/15 Other Not Elsewhere Classified [address] [place] [address])([facility] [address] [place] [address])([facility] ) TELE CONSULT [id number] 6 Notes Entered by: RICA RODGERS RET 19 Jan 2021 0938 ------- ------- ------- ------- -- Discuss CAT scan results /Luba rodriguez/618. [phone] 9 FILIPPO FLANNERY 01/[address] [place] [address])([facility] [address] [place] [address])([facility] ) TELE CONSULT [id number] 1 Notes Entered by: DEBBIE MEDEIROS 02 Feb 2021 1005 ------- ------- ------- ------- -- Med Renewal Request / Rush / - LUIS Avila 02/02 Other Not Elsewhere Classified [address] [place] [address])([facility] [address] [place] [address])([facility] ) OUTPATIENT [id number] [id number] bump on index finger , left hand getting bigger FILIPPO FLANNERY 02/16 Released w/o Limitations [address] [place] [address])([facility] [address] [place] [address])([facility] ) TELE CONSULT [id number] 5 Notes Entered by: EUGENIA JEAN 24 Feb 2021 1419 ------- ------- ------- ------- -- Inciden mirtha finding on CT FILIPPO FLANNERY 02/[address] [place] [address] [facility])([facility]) [address] [place] [address])([facility] ) TELE CONSULT [id number] 1 Notes Entered by: EUGENIA JEAN 26 Feb 2021 1417 ------- ------- ------- ------- -- Results of Ultraso und FILIPPO FLANNERY 02/[address] [place] [address] [facility])([facility]) [address] [place] [address] [facility])([facility] ) TELE CONSULT [id number] 2 Notes Entered by: MATT PRUITT 27 Feb 2021 1020 ------- ------- ------- ------- -- Medical Note Request /Luba /618. [phone] 9 LUIS VILLEGAS 02/27 Other Not Elsewhere Classified [address] [place] [address] Group [facility])([facility]) [address] [place] [address])([facility] ) OUTPATIENT [id number] Virtual -reques royce referra winter for dermato logy-61 [phone] FILIPPO FLANNERY 03/17 Released w/o Limitations [address] [place] [address])([facility] [address] [place] [address])([facility] ) TELE CONSULT [id number] 5 Notes Entered by: EFRAIN LOPEZ 31 Mar 2021 1410 ------- ------- ------- ------- -- F/U Spec - referra winter [facility] - - MORRIS Snow 03/31 Other Not Elsewhere Classified [address] [place] [address] Group [facility])([facility]) [address] [place] [address])([facility] ) TELE CONSULT [id number] 8 Notes Entered by: FABIOLA PONCE 14 Apr 2021 1304 ------- ------- ------- ------- -- Network results Dermato logy 021 KSP FILIPPO FLANNERY 04/[address] [place] [address])([facility] [address] [place] [address])([facility] ) TELE CONSULT [id number] Notes Entered by: SOFÍA ESCALERA 24 Apr 2021 0851 ------- ------- ------- ------- -- Network results Otolary ngology [ENT] 021 FILIPPO SPENCE 04/24 [facility])([facility]) [facility])([facility] ) TELE CONSULT [id number] Notes Entered by: TANISHA MAYO 13 May 2021 1322 ------- ------- ------- ------- -- referra maggy benitez /luba rs/[phone] MORRIS Pendleton 05/13 Other Not Elsewhere Classified [facility])([facility]) [facility])([facility] ) TELE CONSULT [id number] 6 Notes Entered by: JOHN YAN 26 May 2021 0915 ------- ------- ------- ------- -- SX Chest nodules / /Referr al Dariel / Rush s/ AYAKA ACEVEDO 05/26 Other Not Elsewhere Classified [facility])([facility]) [facility])([facility] ) TELE CONSULT [id number] 3 Notes Entered by: LATRICE TAVERAS 27 May 2021 1045 ------- ------- ------- ------- -- Cardiol ogy referLUIS Horton 05/27 Other Not Elsewhere Classified [facility])([facility]) [facility])([facility] ) TELE CONSULT [id number] 6 Notes Entered by: CHRISTIANO BARTON 13 Jul 2021 1445 ------- ------- ------- ------- -- Network results Cardiol edwin 021 FILIPPO GRAHAM 07/[address] [place] [address] ([facility] [address] [place] [address])([facility] ) TELE CONSULT [id number] 2 Notes Entered by: FABIOLA PONCE 21 Jul 2021 1553 ------- ------- ------- ------- -- Network results Gastroe yuniormilagropretty gy 021 FILIPPO SEGOVIA 07/[address] [place] [address])([facility] [address] [place] [address])([facility] ) TELE CONSULT [id number] 9 Notes Entered by: CHRISTIANO BARTON 28 Jul 2021 1225 ------- ------- ------- ------- -- Network results Gastroe yuniormilagropretty gy 021 FILIPPO GRAHAM 07/[address] [place] [address])([facility]) [address] [place] [address])([facility] ) TELE CONSULT [id number] 8 Notes Entered by: FABIOLA PONCE 04 Aug 2021 1212 ------- ------- ------- ------- -- Network results Cardiol ogy 021 FILIPPO SEGOVIA 08/[address] [place] [address] ([facility]) [address] [place] [address] [facility] ([facility] ) OUTPATIENT [id number] both legs tingeli ng,back pain, f2f appt FILIPPO FLANNERY 09/15 Released w/o Limitations [address] [place] [address] [facility] ([facility]) [address] [place] [address] [facility])([facility] ) TELE CONSULT [id number] 9 Notes Entered by: EUGENIA JEAN 18 Sep 2021 1106 ------- ------- ------- ------- -- Lab results FILIPPO FLANNERY 09/[address] [place] [address])([facility]) [address] [place] [address])([facility] ) TELE CONSULT [id number] 3 Notes Entered by: MATT PRUITT 24 Sep 2021 0812 ------- ------- ------- ------- -- Rx Rubin /LUBA RODRIGUEZ/332. 548.093 9 MORRIS WOODSON 09/24 Medication Refill Forwarded [address] [place] [address])([facility]) [address] [place] [address])([facility] ) TELE CONSULT [id number] Notes Entered by: DEBBIE MEDEIROS 28 Sep 2021 1029 ------- ------- ------- ------- -- Medicat ion Not in Pharmac y/ Rush acharya/ - MERARY Terrell 09/28 Other Not Elsewhere Classified [address] [place] [address])([facility]) [address] [place] [address])([facility] ) TELE CONSULT [id number] Notes Entered by: JOHN YAN 21 Oct 2021 1032 ------- ------- ------- ------- -- Phone Call Request / Rush acharya/ SAMANTHA COTTON 10/21 Other Not Elsewhere Classified [address] [place] [address])([facility]) [address] [place] [address])([facility] ) TELE CONSULT [id number] 2 Notes Entered by: DEBBIE MEDEIROS 12 Nov 2021 0842 ------- ------- ------- ------- -- Med Change Request - Chest CT Test F/U - Special ist F/U/ Rush s/ [phone] [id number] LUIS VILLEGAS 11/12 Other Not Elsewhere Classified [address] [place] [address] [facility])([facility]) [address] [place] [address] [facility])([facility] ) OUTPATIENT [id number] Virtual discuss radiolo gy results FILIPPO FLANNERY 11/12 Released w/o Limitations [address] [place] [address] [facility])([facility]) [address] [place] [address] [facility])([facility] ) TELE CONSULT [id number] 8 Notes Entered by: SARAI LY 28 Dec 2021 1112 ------- ------- ------- ------- -- Network results Cardiol ogy 022 BF FILIPPO FLANNERY 12/[address] [place] [address] [facility])([facility]) [address] [place] [address])(Fam hong Med Tm B Non-AD BCC) TELE CONSULT [id number] 1 Notes Entered by: TRAN DELGADO 09 Aug 2022 1129 ------- ------- ------- ------- -- Patient Dischar MARIANO Prasad 08/[address] [place] [address] [facility])(F amily Med Tm B Non-AD BCC) [address] [place] [address] [facility])([facility] ) OUTPATIENT [id number] new provide r to review medical conditi ons F2F CARMEN LEDBETTER 09/10 Released w/o Limitations [address] [place] [address] [facility])([facility]) [address] [place] [address] [facility])([facility] ) TELE CONSULT [id number] 8 Notes Entered by: GREG ATKINS 06 Oct 2022 1140 ------- ------- ------- ------- -- NOTIFIC ATIONS OF MEDICAL RECORD UPLOADCARMEN GROVER 10/[address] [place] [address])([facility]) [address] [place] [address])([facility] ) TELE CONSULT [id number] 7 Notes Entered by: DEBBIE MEDEIROS 25 Oct 2022 1424 ------- ------- ------- ------- -- Cardiol ogy Referra l Renewal Req -Appt Alicia/ [phone] CHETAN HYDE 10/25 Other Not Elsewhere Classified [address] [place] [address])([facility]) [address] [place] [address])([facility] ) OUTPATIENT [id number] dermato logy referra l/under skin bumps CARMEN LEDBETTER 10/27 Released w/o Limitations [address] [place] [address])([facility]) [address] [place] [address])([facility] ) TELE CONSULT [id number] 7 Notes Entered by: GREG ATKINS 08 Nov 2022 1300 ------- ------- ------- ------- -- NOTIFIC ATION OF MEDICAL RECORD UPLOADCARMEN JEAN 11/[address] [place] [address])([facility]) [address] [place] [address])([facility] ) TELE CONSULT [id number] 8 Notes Entered by: MARISOL PINEDA 24 Nov 2022 1527 ------- ------- ------- ------- -- Network results Cardiol ogy 022 LSCARMEN ALCANTAR 11/[address] [place] [address])([facility]) [address] [place] [address])([facility] ) TELE CONSULT [id number] 2 Notes Entered by: CHRISSY CONLEY 14 Dec 2022 1338 ------- ------- ------- ------- -- Retro Referra l Request /Alicia/ (Maira) CHANDANA MONTE 12/14 Other Not Elsewhere Classified [address] [place] [address])([facility]) [address] [place] [address])([facility] ) TELE CONSULT [id number] 6 Notes Entered by: JOHN YAN 18 Jan 2023 1011 ------- ------- ------- ------- -- Referra l Renewal / Alicia/ CHETAN HYDE 01/18 Other Not Elsewhere Classified [address] [place] [address])([facility]) [address] [place] [address])([facility] ) TELE CONSULT [id number] 4 Notes Entered by: ALEIDA DAVIS 11 Feb 2023 1312 ------- ------- ------- ------- -- Network results Dermato logy 023 HLW CARMEN LEDBETTER 02/[address] [place] [address])([facility]) -375 [facility] louise Outside Documentat ion Only [id number] 05/17 Discharge Disposition: Home or Self Care 5A-3 [facility] Procedures Combined list of: 1) Procedures from Department of Veterans Affairs facilities going back up to thelast 18 months, not all VA non-surgical procedures are included; 2) All procedures from the Department of Defense facilities. Procedure Procedure Type Code Date Perfomer Comments Sourtiago e Non-Physician Phone Call To Patient/Provider Brief (5-10min) Non-Physician Phone Call To Patient/Provider Brief (5-10min) [phone] DARCY-LUIS KEMP [facility] Non-Physician Phone Call To Patient/Provider Brief (5-10min) Non-Physician Phone Call To Patient/Provider Brief (5-10min) [phone] AYAKA AMIN Non-Physician Phone Call To Patient/Provider Brief (5-10min) Non-Physician Phone Call To Patient/Provider Brief (5-10min) [phone] AYAKA AMIN Non-Physician Phone Call To Patient/Provider Brief (5-10min) Non-Physician Phone Call To Patient/Provider Brief (5-10min) [phone] TOMMY ANGELO [facility] Immunization Administration One Vaccine Immunization Administration One Vaccine [id number] SAGAR BENÍTEZ [facility] Tdap Vaccine Tdap Vaccine [phone] SAGAR BENÍTEZ [facility] Non-Physician Phone Call To Patient/Provider Brief (5-10min) Non-Physician Phone Call To Patient/Provider Brief (5-10min) [phone] BARBI KOVACS [facility] Vaccines Viral Yellow Fever Vaccines Viral Yellow Fever 51299 005 ELIJAH STARR DoD Immunization Administration One Vaccine Immunization Administration One Vaccine 49438 005 ELIJAH STARR [facility] Waiver services; not otherwise specified (NOS) KRYSTLE APONTE [facility] Non-Physician Phone Call To Patient/Provider Brief (5-10min) Non-Physician Phone Call To Patient/Provider Brief (5-10min) [phone] AYAKA ACEVEDO [facility] Non-Physician Phone Call To Pt/Provider Intermed (11-20 min) Non-Physician Phone Call To Pt/Provider Intermed (11-20 min) [id number] CHETAN HYDE [facility] VIS FUNCT SCREEN,AUTOMAT/SEMI- AUTOMAT BILAT QUANT DETERM VISUAL ACUITY,OCULAR ALIGN,COLOR VISION,PSEUDOISOCHRO MAT PLATES,& FIELD VIS (MAY INC ALL/SOME SCRN DETERM FOR CONTRAST SENSITIV,VIS UND GLARE) [facility] SERIAL TONOMETRY (SEP PROC) WITH MULT JANEL OF INTRAOCULAR PRESSURE OVER EXTENDED TIME PERIOD W/ INTERP & REPORT, SAME DAY (EG, DIURNAL CURVE OR MEDICAL TX OF ACUTE ELEVATION OF INTRAOCULAR PRESSURE) DoD IMMUNIZATION ADMINISTRATION (INCLUDES PERCUTANEOUS, INTRADERMAL, SUBCUTANEOUS, OR INTRAMUSCULAR INJECTIONS); 1 VACCINE (SINGLE OR COMBINATION VACCINE/TOXOID) [facility] ELECTROCARDIOGRAM, ROUTINE ECG WITH AT LEAST 12 LEADS; TRACING ONLY, WITHOUT INTERPRETATION AND REPORT [facility] COMPREHENSIVE AUDIOMETRY THRESHOLD EVALUATION AND SPEECH RECOGNITION (91931 AND 55631 COMBINED) [facility] SERIAL TONOMETRY (SEP PROC) WITH MULT JANEL OF INTRAOCULAR PRESSURE OVER EXTENDED TIME PERIOD W/ INTERP & REPORT, SAME DAY (EG, DIURNAL CURVE OR MEDICAL TX OF ACUTE ELEVATION OF INTRAOCULAR PRESSURE) [facility] DETERMINATION OF REFRACTIVE STATE [facility] OPHTHALMOLOGICAL SERVICES: MEDICAL EXAMINATION AND EVALUATION, WITH INITIATION OR CONTINUATION OF DIAGNOSTIC AND TREATMENT PROGRAM; INTERMEDIATE, ESTABLISHED PATIENT [facility] OPHTHALMOLOGICAL SERVICES: MEDICAL EXAMINATION AND EVALUATION, WITH INITIATION OR CONTINUATION OF DIAGNOSTIC AND TREATMENT PROGRAM; INTERMEDIATE, ESTABLISHED PATIENT [facility] OPHTHALMOLOGICAL SERVICES: MEDICAL EXAMINATION AND EVALUATION, WITH INITIATION OR CONTINUATION OF DIAGNOSTIC AND TREATMENT PROGRAM; INTERMEDIATE, ESTABLISHED PATIENT [facility] OPHTHALMOLOGICAL SERVICES: MEDICAL EXAMINATION AND EVALUATION, WITH INITIATION OR CONTINUATION OF DIAGNOSTIC AND TREATMENT PROGRAM; COMPREHENSIVE, ESTABLISHED PATIENT, 1 OR MORE VISITS [facility] DETERMINATION OF REFRACTIVE STATE [facility] UNLISTED OPHTHALMOLOGICAL SERVICE OR PROCEDURE [facility] SCREENING TEST, PURE TONE, AIR ONLY [facility] OPHTHALMOSCOPY, EXTENDED, WITH RETINAL DRAWING (EG, FOR RETINAL DETACHMENT, MELANOMA), WITH INTERPRETATION AND REPORT; INITIAL [facility] VISUAL FIELD EXAM,UNILAT/BI,INTER P&REP;EXT EXM(EG,GOLDMANN VIS FLD,AT LEAST 3 ISOP PLOT&STAT DET W/IN SHAHID 30DEG/QUANT,AUTO THRSH KEISHA,OCT G-1,32/42,HUMP VIS FLD ANAL FULL THRSH 30-2,24-2, OR 30/60-2) 002 DoD EDUCATIONAL SUPPLIES, SUCH BOOKS, TAPES, AND PAMPHLETS, FOR THE PATIENT'S EDUCATION AT COST TO PHYSICIAN OR OTHER QUALIFIED HEALTH HAND FOLDER 002 DoD TELE ASSESS & MGT SRV PROV QUAL NONPHYS HLTH CARE PRO TO EST PAT,PARENT,GUARD NOT ORIG REL ASSESS & MGT SRV PROV W/IN PREV 7 DAYS NOR LEAD ASSESS & MGT SRV/PX W/IN NXT 24H/SOON APT; 11-20 MIN MED DIS 023 DoD TELE ASSESS & MGT SRV PROV QUAL NONPHYS HLTH CARE PRO TO EST PAT,PARENT,GUARD NOT ORIG REL ASSESS & MGT SRV PROV W/IN PREV 7 DAYS NOR LEAD ASSESS & MGT SRV/PX W/IN NXT 24 HR/SOON APT;5-10 MIN MED DIS 023 DoD TELE ASSESS & MGT SRV PROV QUAL NONPHYS HLTH CARE PRO TO EST PAT,PARENT,GUARD NOT ORIG REL ASSESS & MGT SRV PROV W/IN PREV 7 DAYS NOR LEAD ASSESS & MGT SRV/PX W/IN NXT 24H/SOON APT; 11-20 MIN MED DIS 022 DoD TELE ASSESS & MGT SRV PROV QUAL NONPHYS HLTH CARE PRO TO EST PAT,PARENT,GUARD NOT ORIG REL ASSESS & MGT SRV PROV W/IN PREV 7 DAYS NOR LEAD ASSESS & MGT SRV/PX W/IN NXT 24 HR/SOON APT;5-10 MIN MED DIS 021 DoD TELE ASSESS & MGT SRV PROV QUAL NONPHYS HLTH CARE PRO TO EST PAT,PARENT,GUARD NOT ORIG REL ASSESS & MGT SRV PROV W/IN PREV 7 DAYS NOR LEAD ASSESS & MGT SRV/PX W/IN NXT 24 HR/SOON APT;5-10 MIN MED DIS 021 DoD TELE ASSESS & MGT SRV PROV QUAL NONPHYS HLTH CARE PRO TO EST PAT,PARENT,GUARD NOT ORIG REL ASSESS & MGT SRV PROV W/IN PREV 7 DAYS NOR LEAD ASSESS & MGT SRV/PX W/IN NXT 24 HR/SOON APT;5-10 MIN MED DIS 021 DoD TELE ASSESS & MGT SRV PROV QUAL NONPHYS HLTH CARE PRO TO EST PAT,PARENT,GUARD NOT ORIG REL ASSESS & MGT SRV PROV W/IN PREV 7 DAYS NOR LEAD ASSESS & MGT SRV/PX W/IN NXT 24 HR/SOON APT;5-10 MIN MED DIS 021 DoD WAIVER SERVICES; NOT OTHERWISE SPECIFIED (NOS) 021 DoD WAIVER SERVICES; NOT OTHERWISE SPECIFIED (NOS) 021 DoD WAIVER SERVICES; NOT OTHERWISE SPECIFIED (NOS) DoD WAIVER SERVICES; NOT OTHERWISE SPECIFIED (NOS) 020 DoD TELE ASSESS & MGT SRV PROV QUAL NONPHYS HLTH CARE PRO TO EST PAT,PARENT,GUARD NOT ORIG REL ASSESS & MGT SRV PROV W/IN PREV 7 DAYS NOR LEAD ASSESS & MGT SRV/PX W/IN NXT 24 HR/SOON APT;5-10 MIN MED DIS 018 DoD TELE ASSESS & MGT SRV PROV QUAL NONPHYS HLTH CARE PRO TO EST PAT,PARENT,GUARD NOT ORIG REL ASSESS & MGT SRV PROV W/IN PREV 7 DAYS NOR LEAD ASSESS & MGT SRV/PX W/IN NXT 24 HR/SOON APT;5-10 MIN MED DIS 016 DoD TELE ASSESS & MGT SRV PROV QUAL NONPHYS HLTH CARE PRO TO EST PAT,PARENT,GUARD NOT ORIG REL ASSESS & MGT SRV PROV W/IN PREV 7 DAYS NOR LEAD ASSESS & MGT SRV/PX W/IN NXT 24 HR/SOON APT;5-10 MIN MED DIS 016 DoD TELE ASSESS & MGT SRV PROV QUAL NONPHYS HLTH CARE PRO TO EST PAT,PARENT,GUARD NOT ORIG REL ASSESS & MGT SRV PROV W/IN PREV 7 DAYS NOR LEAD ASSESS & MGT SRV/PX W/IN NXT 24 HR/SOON APT;5-10 MIN MED DIS 015 DoD IMMUNIZATION ADMINISTRATION (INCLUDES PERCUTANEOUS, INTRADERMAL, SUBCUTANEOUS, OR INTRAMUSCULAR INJECTIONS); 1 VACCINE (SINGLE OR COMBINATION VACCINE/TOXOID) 013 DoD TELE ASSESS & MGT SRV PROV QUAL NONPHYS HLTH CARE PRO TO EST PAT,PARENT,GUARD NOT ORIG REL ASSESS & MGT SRV PROV W/IN PREV 7 DAYS NOR LEAD ASSESS & MGT SRV/PX W/IN NXT 24 HR/SOON APT;5-10 MIN MED DIS 012 DoD UNILATERAL THYROID LOBECTOMY 999 DoD No data available for this section Ambulato ry Pharmacy Social History Combined list of available smoking, tobacco, and other social history from [facility] and [facility] facilities. Social History Type Response Date Comment Sourc e This section is an empty soc ial history section. DoD Sexual Orientation Ambula tory Pharmacy Gender identity Ambulator y Pharmacy Sex Representation Male (finding) Un known Organization Assessment and Plan Combined list of future care activities from [facility] of Defense and Veterans Affairs facilities (e.g., assessment and plan notes, appointments, orders, and referrals). Additional future care activities may be listed in the Plan of Care section. Result Assessment and Plan Date Source Assessment and Plan No data available for this section 06/13/2025 Ambulatory Pharmacy Functional Status Combined list of recent functional and cognitive assessments recorded at [facility] Defense and [facility] Affairs (VA).VA Functional [place] Measurement (FIM) Scale: 1 = Total Assistance (Subject = 0% +), 2 = Maximal Assistance (Subject = 25% +), 3 = Moderate Assistance (Subject = 50% +), 4 = Minimal Assistance (Subject = 75% +), 5 = Supervision, 6 = Modified [place] (Device), 7 = Complete [place] (Timely, Safely). Assessment Date/Time Source Assessment Type Assessment Skill Assessment Score Assessment Details No data available for this section
--- OUTSIDE RECORDS SUMMARY | 2025-06-13 14:41 | XMS_ITS | Encounter Summary ---
Author Organization [facility] Address [facility] [place] [address] Care Team Providers Care Service Crew Supervisor Name Role Phone Karmen Ramos DO Primary Care Provider [phone] Eulogio Vargason Pardeep DO Primary Care Provider [phone] Encounter Details Date Type Department Care Team (Late st Contact Info) Description 01/11/2022 Abstract [facility] [address] Gricelda Chakraborty MA Social History Tobacco Use Types Packs/Day Years Used Date Smoking Tobacco: Never Smokeless Tobacco: Never Alcohol Use Standard Drinks/Week Comments Yes 0 [...] file Not on file Not on file COVID-19 Exposure Response Date Recorded In the last 10 days, have yo u been in contact with someone who was confirmed or suspected to have Coronavirus/COVID-19? No / Unsure 01/12/2022 11:06 AM DRY ROASTER documented as of this encounter Plan of Treatment Not on file documented as of this encounter Procedures Procedure Name Priority Date/Time Associated Diagnosis Comments BASIC METABOLIC PANEL Routine 01/05/2022 documented in this encounter Results * (ABNORMAL) BASIC METABOLIC PANEL (01/05/2022) SODIUM S/P/B 139 POTASSIUM S/P/B 4.7 CO2 29 CHLORIDE S/P/B 100 GLUCOSE 109 mg/dL CALCIUM S/P/B 10.0 BUN 20 CREATININE S/P/B 1.0 0.7 - 1.3 EGFR AFR. AMER. 96(A) <=90 EGFR NON-AFR. AMER. 83 <=90 01/05/2022 us Doc [facility] LABORATORY Final Result documented in this encounter Visit Diagnoses Not on filedocumented in this encounter Additional Health Concerns Assessment Noted Time PHQ-9 Depression Total Score: 1 11/26/19 22 8:11 AM DRY ROASTER documented as of this encounter Care Teams Service Crew Supervisor Relationship Specialty Start Date End Date Karmen Ramos DO [address] [address] PCP - General INTERNAL MEDICINE 11/25/21 08/04/22 Anuel Vargas DO [address] [place] [address] PCP - General INTERNAL MEDICINE 08/05/22 documented as of this encounter
[2025-06-13 15:21] LABS: Hematocrit 25.4 % (42.0-52.0); Hemoglobin 7.8 g/dL (14.0-18.0); Immature Granulocyte Percent A 0.5 % (0-0.5); Lymphocytes Absolute Auto 0.36 K/mm3 (0.9-3.2); Mean Corpuscular HGB Conc 30.7 g/dl (32-36); Mean Corpuscular Hemoglobin 27.0 pg (26-34); Mean Corpuscular Volume 87.9 fl (80-100); Nucleated Red Blood Cells Absolute Auto 0.000 K/mm3 (0.0-0.012); Nucleated Red Blood Cells Perc 0.0 % (0.0-0.2); Platelet Count Result 356 k/mm3 (150-375); Red Blood Count 2.89 M/mm3 (4.6-6.20); White Blood Count 14.0 K/mm3 (4.5-10.0)
[2025-06-13 15:55] LABS: Anisocytosis 1+; Ovalocytes 1+
[2025-06-13 15:56] LABS: Burr Cells 1+; Schistocytes None Seen
[2025-06-17 06:07] LABS: Tacrolimus (FK506), Blood 7.8 ng/mL (5.0-20.0)
== END 2025-06-13 14:29 | disposition home or self-care (01) ==
DX: Z94.1 Heart transplant status (principal)
CPT/HCPCS: 36415; 80197; 85025

== ENCOUNTER 2025-06-20 10:04 | Outpatient (NON) | payer OTHER, SELFPAY ==
--- OUTSIDE RECORDS SUMMARY | 2025-06-20 10:16 | XMS_ITS | Encounter Summary ---
Author Organization [facility] Address [address] [place] [address] Phone Care Team Providers Care Pipe Stem Repairer Name Role Phone Anuel Vargas Primary Care Provider [phone] Justin Flowers MD Unavailable Erlin Chong MD Unavailable Katerina Romero RN Unavailable Unavailable Alexandra Powell RN Unavailable [phone] Encounter Details Date Type Department Care Team (Late st Contact Info) Description 10/28/2023 Telephone [facility] Oncology [address] [facility] 7th [place] [address] [place] [address] Mavis Adair Social History Tobacco [...] on file Legal Sex Male 12:25 PM LABORATORY ASSOCIATE Gender Identity Male 05/28/2021 8:44 PM CDT Sexual Orientation Straight 10/19/2022 9: 47 AM LABORATORY ASSOCIATE documented as of this encounter Plan of Treatment Not on file documented as of this encounter Visit Diagnoses Not on filedocumented in this encounter Additional Health Concerns Infection Onset Date Last Indicated Resolved Time COVID: Suspected 11/27/2023 11/27/2023 11/27/2023 3:18 PM LABORATORY ASSOCIATE RSV, droplet 11/27/2023 11/27/2023 12/04/2023 3:05 AM LABORATORY ASSOCIATE Ring Surveillance: C. auris Comment:04/15/25: Negative C. [...] documented as of this encounter Care Teams Pipe Stem Repairer Relationship Specialty Start Date End Date Anuel Vargas DO PCP - General Internal Medicine 10/19/22 Justin Flowers MD [address] DIV IM BONE MARROW TRANSPLANT, [address] [address] Consulting Physician Medical Oncology 10/06/23 Erlin Chong MD [address] DIV IM BONE MARROW TRANSPLANT, [address] [place] [address] Referring Physician Cardiology 10/06/23 Katerina Romero, shovel log loader operatorAircraft Maintenance Engineer Cardiothoracic Surgery 04/03/25 05/20/25 Alexandra Powell, RN [address] [address] Aircraft Maintenance Engineer Transplant 05/21/25 documented as of this encounter
--- OUTSIDE RECORDS SUMMARY | 2025-06-20 10:16 | XMS_ITS | Clinical Summary ---
Author Organization [facility] Address [address] [place] [address] Care Team Providers Care Counseling Director Name Role Phone Unavailable Primary Care Provider Unavailabl e Social History Tobacco Use Types Packs/Day Years Used Date Smoking Tobacco: Never Assessed Sex and Gender Information Value Date Recorded Sex Assigned at Not on file Legal Sex Male 3:26 PM CRAPS MANAGER Gender Identity Not on file Sexual Orientation [...] (1 - 1-dose 75+ series) 2039 Insurance [facility]
--- OUTSIDE RECORDS SUMMARY | 2025-06-20 10:16 | XMS_ITS | Encounter Summary ---
Author Organization [facility] Healthcare Address [address] [place] [address] Care Team Providers Care Wrapper Stitcher Name Role Phone Alicia Anuel Pardeep CASTRO Primary Care Provider [phone] Justin Flowers MD Unavailable Erlin Chong MD Unavailable Alexandra Powell RN Unavailable [phone] Reason for Referral * MRI/CAT/PET Scan (Routine) - Closed Specialty Diagnoses / Procedures Referred By Contac t Referred To Contact Radiology Diagnoses Heart transplanted (HCC) Procedures CT head without contrast Sallie Osman NP [address] [facility] [address] [place] [address] Phone: tel: fax: [address] [phone] Referral ID Status Reason Start Date Expiration Date Visits Re quested Visits Authorized [id number] Closed 06/18/2025 07/18/2026 1 1 Reason for Visit * MRI/CAT/PET Scan (Routine) - Closed Specialty Diagnoses / Procedures Referred By Contac t Referred To Contact Radiology Diagnoses Heart transplanted (HCC) Procedures CT head without contrast Sallie Osman NP [address] [facility] [address] [place] [address] Phone: tel: fax: [address] [phone] Referral ID Status Reason Start Date Expiration Date Visits Re quested Visits Authorized [id number] Closed 06/18/2025 07/18/2026 1 1 Encounter Details Date Type Department Care Team (Latest Contact Info) Description 06/18/2025 1:52 PM CDT - 06/18/2025 11:59 PM CDT Hospital Encounter [facility] [address] [place] [address] Heart transplanted (HCC) Discharge Disposition: Discharge to home or self care Social History Tobacco Use Types Packs/Day Years Used Date Smoking Tobacco: Never Passive Smoke Exposure: Never Smokeless Tobacco: Never C Utilities Answer Date Recorded In the past 12 months has [employer], gas, oil, or water company threatened [...] often do you attend chur ch or religion services? 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 100 each 06/04/2025 blood glucose diagnostic (glucose blood) strip Use as directed up to four times a day. 100 each 1 06/04/2025 blood-glucose meter kit Use as directed. 1 kit 06/04/2025 dapsone 100 mg tabletIndications:P neumocystis/Toxopla smosis Prophylaxis Take 1 tablet (100 mg total) by mouth daily 30 tablet 06/10/2025 empagliflozin (JARDIANCE) 25 mg tablet Take 1 tablet (25 mg total) by mouth daily 30 tablet 06/10/2025 glecaprevir-pibrent asvir (MAVYRET) 100-40 mg tablet per tabletIndications:V iral Hepatitis C,8 week course Take 3 tablets by mouth daily take with food 168 tablet 06/14/2025 glucagon 1 mg kit Inject 1 mg into the muscle once as directed by provider for low blood sugar. 1 kit 06/07/2025 insulin glargine (LANTUS) 100 unit/mL (3 mL) pen for injection Inject 31 Units under the skin daily 15 mL 06/10/2025 lancets misc Use as directed up to 4 times a day. 100 each 1 06/04/2025 methocarbamoL (ROBAXIN) 500 mg tablet Take 1 tablet (500 mg total) by mouth 3 (three) times a day as needed for muscle spasms 90 tablet 06/07/2025 mycophenolate mofetil (CELLCEPT) 500 mg tablet Take 2 tablets (1,000 mg total) by mouth every 12 (twelve) hours 120 tablet 06/07/2025 oxyCODONE (ROXICODONE) 5 mg immediate release tabletIndications:P [...] 06/04/2025 pen needle, diabetic 32 gauge x 532 needle Use as directed 3 times a day. 100 each 06/04/2025 predniSONE (DELTASONE) 5 mg tablet Take 3 tablets (15 mg) by mouth daily 120 tablet 5 06/17/2025 rosuvastatin (CRESTOR) 10 mg tablet Take 1 tablet (10 mg total) by mouth nightly 30 tablet 11 06/07/2025 sodium zirconium cyclosilicate (LOKELMA) 10 gram packetIndications:h yperkalemia Take 1 packet (10 g total) by mouth daily Take at noon 30 packet 3 06/10/2025 tacrolimus 1 mg immediate-release capsuleIndications: immunosuppression Take 2 capsules (2 mg total) by mouth daily AND 1 capsule (1 mg total) nightly. 90 capsule 11 06/07/2025 torsemide (DEMADEX) 20 mg tablet Take 1 tablet (20 mg total) by mouth daily 90 tablet 3 06/17/2025 valGANciclovir (VALCYTE) 450 mg tabletIndications:P rophylaxis, Medical Take 1 tablet (450 mg total) by mouth daily 30 tablet 2 06/08/2025 5 documented as of this encounter Discharge Disposition Disposition Code Departure Means Destination Discharge to home or self care documented in this encounter Plan of Treatment Not on file documented as of this encounter Procedures Procedure Name Priority Date/Time Associated Diagnosis Comments CT HEAD WO CONTRAST Schedule Routine, Read Routine (OP Routine) 06/18/2025 2:11 PM CDT Heart transplanted (HCC) documented in this encounter Results * CT head without contrast (06/18/2025 2:11 PM CDT) Anatomical Region Laterality Modality Head and Neck N/A Computed Tomogra phy 06/18/2025 2:37 PM CDT Impressions 06/18/2025 3:11 PM CDT No acute intracranial process. Dictated by: Lester Polk MD The radiology attending physician has personally reviewed this study, and had reviewed and/or edited this written report and agrees with it. Electronically signed by: Ruddy Webster M.D. Narrative 06/18/2025 3:11 PM CDT EXAMINATION: CT head without contrast HISTORY: Status post heart transplantation. TECHNIQUE: CT of the head was performed with images acquired from skull base to vertex without intravenous contrast. COMPARISON: 04/09/25 FINDINGS: Scattered ill-defined hypodensities in the periventricular and subcortical white matter are nonspecific, likely on the basis of chronic small vessel ischemic change. There is diffuse cerebral volume loss with mild dilatation of the lateral and third ventricles. There are atherosclerotic calcifications of the intracranial vessels. There is no acute intracranial hemorrhage. No mass effect or midline shift is present. The degroot-white matter differentiation is normal. The visualized portions of the orbits are normal. The visualized portions of the mastoids are normal. The visualized portions of the paranasal sinuses are normal. No fractures are identified. Procedure Note Ruddy Webster MD - 06/18/2025 EXAMINATION: CT head without contrast HISTORY: Status post heart transplantation. TECHNIQUE: CT of the head was performed with images acquired from skull base to vertex without intravenous contrast. COMPARISON: 04/09/25 FINDINGS: Scattered ill-defined hypodensities in the periventricular and subcortical white matter are nonspecific, likely on the basis of chronic small vessel ischemic change. There is diffuse cerebral volume loss with mild dilatation of the lateral and third ventricles. There are atherosclerotic calcifications of the intracranial vessels. There is no acute intracranial hemorrhage. No mass effect or midline shift is present. The degroot-white matter differentiation is normal. The visualized portions of the orbits are normal. The visualized portions of the mastoids are normal. The visualized portions of the paranasal sinuses are normal. No fractures are identified. IMPRESSION: No acute intracranial process. Dictated by: Lester Polk MD The radiology attending physician has personally reviewed this study, and had reviewed and/or edited this written report and agrees with it. Electronically signed by: Ruddy Webster M.D. Sallie Osman FINANCIAL SERVICES MANAGER IMG CT PROCEDURES Final Re sult documented in this encounter Visit Diagnoses Diagnosis Heart transplanted (HCC) 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 documented in [...] documented as of this encounter Care Teams Wrapper Stitcher Relationship Specialty Start Date End Date Eulogio Vargason DO Pardeep PCP - General Internal Medicine 10/19/22 Justin Flowers MD [address] DIV IM BONE MARROW TRANSPLANT, [address] [place] [address] Consulting Physician Medical Oncology 10/06/23 Erlin Chong MD [address] DIV IM BONE MARROW TRANSPLANT, [address] [place] [address] Referring Physician Cardiology 10/06/23 Alexandra Powell, RN [address] [facility] [address] [place] [phone] Licensed Bondsman Transplant 05/21/25 documented as of this encounter
--- OUTSIDE RECORDS SUMMARY | 2025-06-20 10:16 | XMS_ITS | Encounter Summary ---
Author Organization [facility] Healthcare Address [address] [place] [address] Care Team Providers Care Room Attendants Name Role Phone AliciaAnuel Primary Care Provider [phone] Justin Flowers MD Unavailable Erlin Chong MD Unavailable Alexandra Powell RN Unavailable [phone] Encounter Details Date Type Department Care Team (Latest Contact Info) Description 06/18/2025 12:06 PM CDT - 06/18/2025 11:59 PM CDT Hospital Encounter [facility]) [address] [place] [address] Follow-up examination following surgery Discharge Disposition: Discharge to home or self care Social History Tobacco Use Types Packs/Day Years Used Date Smoking Tobacco: Never Passive Smoke Exposure: Never Smokeless Tobacco: Never [facility] Utilities Answer Date Recorded In the past 12 months has [employer], gas, oil, or water [employer] threatened to shut off services in your [...] week 04/10/2025 How often do you attend [facility] or rastafari services? Never 04/10/2025 Do you belong to any clubs o r organizations such as rastafarian groups, unions, fraternal or athletic groups, or [...] place to sleep or slept in a usp (including now)? No 11/28/2023 PHQ-9 Answer Date [...] were you homeless or living in a usp (including now)? No 04/10/2025 Personal Safety Answer Date Recorded Have you ever been in or are you currently in a harmful physical or emotional relationship or is someone making you feel afraid or unsafe? 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 100 each 06/04/2025 methocarbamoL (ROBAXIN) 500 mg tablet Take [...] by mouth daily 90 tablet 3 06/17/2025 6 valGANciclovir (VALCYTE) 450 mg tabletIndications:P rophylaxis, Medical Take 1 tablet (450 mg total) by mouth daily 30 tablet 2 06/08/2025 5 documented as of this encounter Discharge Disposition Disposition Code Departure Means Destination Discharge to home or self care documented in this encounter Plan of Treatment Not on file documented as of this encounter Procedures Procedure Name Priority Date/Time Associated Diagnosis Comments XR CHEST PA LATERAL 2 VIEWS Schedule Routine, Read Routine (OP Routine) 06/18/2025 12:12 PM CDT Follow-up examination following surgery documented in this encounter Results * XR Chest Pa Lateral 2 Views (06/18/2025 12:12 PM CDT) Anatomical Region Laterality Modality Body, Chest N/A Computed Radiogr aphy 06/18/2025 12:1 6 PM CDT Impressions 06/18/2025 12:16 PM CDT Comparison is made to prior from 06/08/2025. The heart size is normal. There are small bilateral pleural effusions. Mild left basilar atelectasis. The right lung is clear. No pneumothorax. Electronically signed by: Lorenzo Weir M.D. Narrative 06/18/2025 12:16 PM CDT EXAMINATION: 2 view chest radiograph Procedure Note Lorenzo Weir MD - 06/18/2025 EXAMINATION: 2 view chest radiograph IMPRESSION: Comparison is made to prior from 06/08/2025. The heart size is normal. There are small bilateral pleural effusions. Mild left basilar atelectasis. The right lung is clear. No pneumothorax. Electronically signed by: Lorenzo Weir M.D. 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 Specials protocols are implemented when working with a patient testing positive for C. Auris. 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 05/07/2025 05/07/2025 documented as of this encounter Care Teams Room Attendants Relationship Specialty Start Date End Date Anuel Vargas DO PCP - General Internal Medicine 10/19/22 Justin Flowers MD [address] DIV IM BONE MARROW TRANSPLANT, [address] [place] [address] Consulting Physician Medical Oncology 10/06/23 Erlin Chong MD [address] DIV IM BONE MARROW TRANSPLANT, [address] [place] [address] Referring Physician Cardiology 10/06/23 Alexandra Powell, RN [address] [facility] [address] [place] [address] Avionics Technician Transplant 05/21/25 documented as of this encounter
--- OUTSIDE RECORDS SUMMARY | 2025-06-20 10:16 | XMS_ITS | Encounter Summary ---
Author Organization [facility] Address [address] [place] [address] Phone Care Team Providers Care Discharging Machine Operator Name Role Phone Anuel Vargas Primary Care Provider [phone] Justin Flowers MD Unavailable Erlin Chong MD Unavailable [phone] Katerina Romero RN Unavailable Unavailable Alexandra Powell RN Unavailable Encounter Details Date Type Department Care Team (Late st Contact Info) Description 05/08/2025 Documentation [facility] Endocrinology Metabolism and Lipid [address] [facility] 13th [place] [address] [place] [address] Edmundo Best MD [address] [place] [address] Social History Tobacco Use Types Packs/Day Years Used Date Smoking Tobacco: Never Passive Smoke Exposure: Never Smokeless Tobacco: Never [facility] Utilities Answer Date Recorded In the past 12 months has [employer], gas, oil, or water [employer] threatened to shut off services in your [...] often do you attend chur ch or baptism services? Never 04/10/2025 Do you belong to any clubs o r organizations such as nondenominational groups, unions, fraternal or athletic groups, or [...] any time in the past 12 m [facility], were you homeless or living in a chcf (including now)? No 04/10/2025 Personal Safety Answer Date Recorded Have you ever been in or are you currently in a harmful physical or emotional relationship or is someone making you feel afraid or unsafe? 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 PLANNING MANAGER Gender Identity Male 05/28/2021 8:44 PM CDT Sexual Orientation Straight 10/19/2022 9: 47 AM PLANNING MANAGER documented as of this encounter Plan of Treatment Not on file documented as of this encounter Visit Diagnoses Not on filedocumented in this encounter Additional Health Concerns Infection Onset Date Last Indicated Resolved Time Ring Surveillance: C. auris 04/18/2025 04/18/2025 05/08/2025 [...] documented as of this encounter Care Teams Discharging Machine Operator Relationship Specialty Start Date End Date Anuel Vargas DO PCP - General Internal Medicine 10/19/22 Justin Flowers MD [address] DIV IM BONE MARROW TRANSPLANT, [address] [place] [address] Consulting Physician Medical Oncology 10/06/23 Erlin Chong MD [address] DIV IM BONE MARROW TRANSPLANT, [address] [place] [address] Referring Physician Cardiology 10/06/23 Katerina Romero, flight control tower operatorLow Voltage Electrician Cardiothoracic Surgery 04/03/25 05/20/25 Alexandra Powell, RN [address] [facility] [address] [place] [address] Low Voltage Electrician Transplant 05/21/25 documented as of this encounter
--- OUTSIDE RECORDS SUMMARY | 2025-06-20 10:16 | XMS_ITS | Encounter Summary ---
Author Organization [facility] Address [address] [place] [address] Phone Care Team Providers Care It Security Engineer Name Role Phone Anuel Vargas Primary Care Provider [phone] Justin Flowers MD Unavailable Erlin Chong MD Unavailable Katerina Romero RN Unavailable Unavailable Alexandra Powell RN Unavailable [phone] Encounter Details Date Type Department Care Team (Late st Contact Info) Description 02/13/2024 Telephone [facility] Transplant [address] [facility] 7th Floor, [place] [address] Alma Carranza V. Social History Tobacco Use Types Packs/Day Years Used Date Smoking Tobacco: Never Cigarettes Smokeless Tobacco: Never [facility] Utilities Answer Date Recorded In the past 12 months has [employer], gas, oil, or water [employer] threatened to shut off services in your [...] week 11/28/2023 How often do you attend [facility] or church services? Never 11/28/2023 Do you belong to [...] in a mcfp (including now)? No 11/28/2023 Personal Safety Answer Date Recorded Have you ever been in or are you currently in a harmful physical or emotional relationship or is someone making you feel afraid or unsafe? Denies 11/27/2023 Sex and Gender Information Value Date Recorded Sex Assigned at Not on file Legal Sex Male 12:25 PM STUDENT FINANCIAL AID MANAGER Gender Identity Male 05/28/2021 8:44 PM CDT Sexual Orientation Straight 10/19/2022 9: 47 AM STUDENT FINANCIAL AID MANAGER documented as of this encounter Plan of Treatment Not on file documented as of this encounter Visit Diagnoses Not on filedocumented in this encounter Additional Health Concerns Infection Onset Date Last Indicated Resolved Time Ring Surveillance: C. auris Comment:04/15/25: Negative C. Auris swab. BChanda Schuler 04/17/2025 This flag is used to [...] documented as of this encounter Care Teams It Security Engineer Relationship Specialty Start Date End Date Anuel Vargas DO PCP - General Internal Medicine 10/19/22 Justin Flowers MD [address] DIV IM BONE MARROW TRANSPLANT, [address] [place] [address] Consulting Physician Medical Oncology 10/06/23 Erlin Chong MD [address] DIV IM BONE MARROW TRANSPLANT, [address] [place] [address] Referring Physician Cardiology 10/06/23 Katerina Romero, cupola operator insulationCognos Administrator Cardiothoracic Surgery 04/03/25 05/20/25 Alexandra Powell, RN [address] [facility] [address] [place] [address] Cognos Administrator Transplant 05/21/25 documented as of this encounter
--- OUTSIDE RECORDS SUMMARY | 2025-06-20 10:16 | XMS_ITS | Encounter Summary ---
Author Organization [facility] Address [address] [place] [address] Phone Care Team Providers Care Photovoltaic Fabrication Technician Name Role Phone Anuel Vargas Primary Care Provider [phone] Reason for Referral * Procedure (Routine) - Closed Specialty Diagnoses / Procedures Referred By Ericka amaya Referred To Contact Diagnoses ILD (interstitial lung disease) ([facility]) Procedures Pulmonary Function Test -[facility]- [facility]; Oxygen Assessment Titration, Spirometry, Spirometry with Bronchodilator, ABG, Lung Volumes, DLCO; Pleth with Airway Resistance; Room Air ABG; Spirometry Kathy Hewitt MD [address] [place] [address] Phone: tel: fax: Referral ID Status Reason Start Date Expiration Date Visits Re quested Visits Authorized [id number] Closed 07/05/2023 08/03/2024 1 1 Reason for Visit * Procedure (Routine) - Closed Specialty Diagnoses / Procedures Referred By Ericka amaya Referred To Contact Diagnoses ILD (interstitial lung disease) ([facility]) Procedures Pulmonary Function Test -[facility]- [facility]; Oxygen Assessment Titration, Spirometry, Spirometry with Bronchodilator, ABG, Lung Volumes, DLCO; Pleth with Airway Resistance; Room Air ABG; Spirometry Kathy Hewitt MD [address] [address] Phone: tel: fax: Referral ID Status Reason Start Date Expiration Date Visits Re quested Visits Authorized [id number] Closed 07/05/2023 08/03/2024 1 1 Encounter Details Date Type Department Care Team (Latest Contact Info) Description 07/19/2023 7:26 AM CDT Hospital Encounter [facility] PFT Lab [address] [facility] [place] [address] [place] [address] ILD (interstitial lung disease) (HCC) Social History Tobacco Use Types Packs/Day Years Used Date Smoking Tobacco: Never Passive Smoke Exposure: Never Smokeless Tobacco: Never [facility] Utilities Answer Date Recorded In the past 12 months has [employer], gas, oil, or water company threatened [...] often do you attend chur ch or taoism services? Never 04/10/2025 Do you belong to [...] any time in the past 12 m [facility], were you homeless or living [...] on file Legal Sex Male 12:25 PM ELECTRICAL TIMING DEVICE CALIBRATOR Gender Identity Male 05/28/2021 8:44 PM CDT Sexual Orientation Straight 10/19/2022 9: 47 AM ELECTRICAL TIMING DEVICE CALIBRATOR documented as of this encounter Functional Status [...] Never 05/02/2025 7:09 AM CDT Catarina Soria, Amando N * Over the last 2 weeks, how often have you been bothered by any of the following problems? Question Answer Date of Assessment Author Feeling nervous, anxious, or on edge 0 04/10/2025 2:50 PM CDT Alexandra Colin, STEVEN Not being able to stop or control worrying 0 04/10/2025 2:50 PM CDT Alexandra Colin, JAVA LEAD ARCHITECT Worrying too much about different things 0 04/10/2025 2:50 PM CDT Alexandra Colin, STEVEN Trouble relaxing 0 04/10/2025 2:50 PM CDT Alexandra Marie, JAVA LEAD ARCHITECT Being so restless that it is hard to sit still 0 04/10/2025 2:50 PM CDT Alexandra Colin, JAVA LEAD ARCHITECT Becoming easily annoyed or irritable 0 04/10/2025 2:50 PM CDT Alexandra Colin, JAVA LEAD ARCHITECT Feeling afraid as if somethi ng awful might happen 0 04/10/2025 2:50 PM CDT Alexandra Colin LCSW MELONY-7 Total Score 0 04/10/2025 2:50 PM CDT Alexandra Colin, JAVA LEAD ARCHITECT documented as of this encounter Plan of Treatment Not on file documented as of this encounter Procedures Procedure Name Priority Date/Time Associated Diagnosis Comments PULMONARY FUNCTION TEST (PFT) Routine 07/19/2023 8:57 AM CDT ILD (interstitial lung disease) (HCC) documented in this encounter Results * Pulmonary Function Test - (07/19/2023 8:57 AM CDT) FVC PRE 2.98 L [facility] FVC %PRE PRED 64 % [facility] FVC POST 3.17 L [facility] FVC %POST PRED 68 % [facility] FEV1 PRE 2.45 L [facility] FEV1 %PRE PRED 68 % [facility] FEV1 POST 2.70 L [facility] FEV1 %POST PRED 75 % [facility] FEV1/FVC PRE 82.2 % [facility] FEV1/FVC POST 85.3 % [facility] FRC PL PRE 2.64 L [facility] FRC PL %PRE PRED 68 % [facility] RV PRE 1.72 L [facility] RV %PRE PRED 73 % [facility] TLC PRE 4.81 L [facility] TLC %PRE PRED 65 % [facility] DLCO PRE 20.9 ml/min/mmH g [facility] DLCO %PRE PRED 71 % [facility] FIO2 % 21.00 % [facility] PaO2 102.0 mmHg [facility] PaCO2 39.0 mmHg [facility] pH 7.46 [facility] A-aDO2 POC -1.0 mmHg [facility] METHGB % 0.6 % [facility] COHb POC 1.1 % [facility] HCO3 27.7 mEq/L [facility] Anatomical Region Laterality Modality PFT 07/19/2023 7:56 [...] and %HbO2 is age dependent. However, the [facility] Pulmonary Function Laboratory defines hypoxemia as a PO2 <55 or a %HbO2 <89. Narrative 07/20/2023 10:52 AM CDT Table formatting from the original result was not included. [facility] Division of Pulmonary & Critical Care Medicine [address] [place] [address]; [place] [address]; [place] [address]; [phone] Pulmonary Function Laboratory Pulmonary Stress Test Simple/Oxygen [...] Work [distance (m) x body wt (kg)]: 88078 kg.m (normal >60,000kg.m) Oxygen required to maintain SpO2 greater than 90% during six minutes of walkin L/M Comments: E2O-APP STANDARDS- NO STOPS Interpretation: Breathing room air, [...] with the written final report. PFT performed at:->[facility] Adult PFT Lab- [facility] Procedure:->Oxygen Assessment Titration Procedure:->Spirometry Procedure:->Spirometry with Bronchodilator [...] (interstitial lung disease) (HCC) Postinflammatory pulmonary fibrosis documented in this encounter Additional Health Concerns Infection Onset Date Last Indicated Resolved Time COVID: Suspected 11/27/2023 11/27/2023 11/27/2023 3:18 PM ELECTRICAL TIMING DEVICE CALIBRATOR RSV, droplet 11/27/2023 11/27/2023 12/04/2023 3:05 AM ELECTRICAL TIMING DEVICE CALIBRATOR Ring Surveillance: C. auris Comment:04/15/25: Negative C. [...] documented as of this encounter Care Teams Photovoltaic Fabrication Technician Relationship Specialty Start Date End Date Anuel Vargas DO PCP - General Internal Medicine 10/19/22 documented as of this encounter
--- OUTSIDE RECORDS SUMMARY | 2025-06-20 10:16 | XMS_ITS | Clinical Summary ---
Author Organization [facility] Care Team Providers Care Volleyball Referee Name Role Phone Unavailable Primary Care Provider [...] Virus (HCV) Screening 1965 TdaP Immunization 1964 Cologuard 2009 Colonoscopy 2009 Colorectal Cancer Screening 2009 Immunochemical Fecal Occult Blood 2009 Pneumococcal Immunization (5 0+ years) (1 of 1 - PCV) 2014 Zoster Immunization (1 of 2) 2014 SARS-COV-2 Immunization ( - 2023- season) 2024 Influenza Immunization (#1) 07/22/202504/2020, 09/25/2019 Respiratory Syncytial Virus (RSV) Immunization (Adult) (1 - 1-dose 75+ series) 2039 Hepatitis B Immunization Aged Out No longer eligible based on patient's age to complete this topic Human Papillomavirus (HPV) Immunization Aged Out No longer eligible b ased on patient's age to complete this topic Meningococcal Immunization (ACWY) Aged Out No longer eligible b ased on patient's age to complete this topic Rotavirus Immunization Aged Out No lo nger eligible based on patient's age to complete this topic
--- OUTSIDE RECORDS SUMMARY | 2025-06-20 10:16 | XMS_ITS ---
Author Organization [facility] Address [address] [place] [address] Care Team Providers Care Subcontracts Manager Name Role Phone Alicia Anuel Pardeep CASTRO Primary Care Provider [phone] Justin Flowers MD Unavailable Erlin Chong MD Unavailable Alexandra Powell RN Unavailable [phone] Transplant Episode Heart Recipient [facility] ([place], [place]) - [facility] Organ Received: Heart Transplanted on 05/21/2025 Marked as Active Follow-up on 05/21/2025 Heart CoordinatorAlexandra Powell RN Fax: N/A Email: N/A [place] Organ Diagnosis 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 History Noted Survival Infection Treatment Organism Resolved 06/17/2025 27 days Acute hepatitis C virus infection without hepatic coma Donor Information Organ ABO Source Meets Risk [...] Role Phone Fax Email Alexandra Powell RN Office Services Specialist [phone] N/A N/A Addy Tapia MD Surgeon [phone] N/A Events Post-Transplant Pre-Transplant Admitted: 04/08/2025 Referred: 04/08/2025 Transplanted: 05/21/2025 Evaluation began: 5 Discharged: 06/11/2025 Committee: 04/12/2025 Center waitlisted: 5 Appointments (05/20/2025 - 07/21/2025) When With Visit Type Description 06/17/2025 Transplant Return 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
--- OUTSIDE RECORDS SUMMARY | 2025-06-20 10:17 | XMS_ITS | Encounter Summary ---
Author Organization [facility] Address [address] [place] [address] Phone Care Team Providers Care Ship Runner Name Role Phone Anuel Vargas Primary Care Provider [phone] Justin Flowers MD Unavailable Erlin Chong MD Unavailable Alexandra Powell RN Unavailable [phone] Encounter Details Date Type Department Care Team (Late st Contact Info) Description 06/07/2025 Documentation [facility] Endocrinology Metabolism and Lipid [address] [facility] Medicine 13th [place] [address] [place] [address] Carolyn Ponce MD [address] [place], [place] [id number] Social History Tobacco Use Types Packs/Day Years Used Date Smoking Tobacco: Never Passive Smoke Exposure: Never Smokeless Tobacco: Never [facility] Utilities Answer Date Recorded In the past 12 months has [employer], gas, oil, or water company threatened to [...] often do you attend chur ch or latter day services? Never 04/10/2025 Do you belong to any clubs o r organizations such as episcopal groups, unions, fraternal or athletic groups, or [...] any time in the past 12 m [place], were you homeless or living in a custodial (including now)? No 04/10/2025 Personal Safety Answer Date Recorded Have you ever been in or are you currently in a harmful physical or emotional relationship or is someone making you feel afraid or unsafe? 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 Gender Identity Male 05/28/2021 8:44 PM CDT Sexual Orientation Straight 10/19/2022 9: 47 AM TOOL DESIGNER documented as of this encounter Plan of [...] documented as of this encounter Care Teams Ship Runner Relationship Specialty Start Date End Date Anuel Vargas DO PCP - General Internal Medicine 10/19/22 Justin Flowers MD [address] DIV IM BONE MARROW TRANSPLANT, [address] [address] Consulting Physician Medical Oncology 10/06/23 Erlin Chong MD [address] DIV IM BONE MARROW TRANSPLANT, [address] [place] [address] Referring Physician Cardiology 10/06/23 Alexandra Powell, RN [address] [place] [address] Coach Tour Driver Transplant 05/21/25 documented as of this encounter
--- OUTSIDE RECORDS SUMMARY | 2025-06-20 10:17 | XMS_ITS | Encounter Summary ---
Author Organization [facility] Address [address] [place] [address] Phone Care Team Providers Care Farm Equipment Mechanic Name Role Phone Anuel Vargas Primary Care Provider [phone] Justin Flowers MD Unavailable Erlin Chong MD Unavailable [phone] Alexandra Powell RN Unavailable Encounter Details Date Type Department Care Team (Late st Contact Info) Description 05/28/2025 Results Follow-Up [facility] Gasteroenterology [address] [facility] Medicine 12th [place] [address] [place] [address] Jessica Marti MD [address] [place] [address] Hepatitis C genotype Blood Social History Tobacco Use Types Packs/Day Years Used Date Smoking Tobacco: Never Passive Smoke Exposure: Never Smokeless Tobacco: Never [facility] Utilities Answer Date Recorded In the past 12 months has [employer], gas, oil, or water company threatened to [...] often do you attend chur ch or judaism services? Never 04/10/2025 Do you belong to any clubs o r organizations such as denominational groups, unions, fraternal or athletic groups, or [...] place to sleep or slept in a care home (including now)? No 11/28/2023 PHQ-9 Answer Date [...] any time in the past 12 m [facility], were you homeless or living in a care home (including now)? No 04/10/2025 Personal Safety Answer Date Recorded Have you ever been in or are you currently in a harmful physical or emotional relationship or is someone making you feel afraid or unsafe? 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 SALES OFFICE ADMINISTRATOR Gender Identity Male 05/28/2021 8:44 PM CDT Sexual Orientation Straight 10/19/2022 9: 47 AM SALES OFFICE ADMINISTRATOR documented as of this encounter Miscellaneous Notes [...] documented as of this encounter Care Teams Farm Equipment Mechanic Relationship Specialty Start Date End Date Anuel Vargas DO PCP - General Internal Medicine 10/19/22 Justin Flowers MD [address] DIV IM BONE MARROW TRANSPLANT, [address] [place] [address] Consulting Physician Medical Oncology 10/06/23 Erlin Chong MD [address] DIV IM BONE MARROW TRANSPLANT, [address] [place] [address] Referring Physician Cardiology 10/06/23 Alexandra Powell, RN [address] [facility] [address] [place], [place] [id number] Bounty Trapper Transplant 05/21/25 documented as of this encounter
--- OUTSIDE RECORDS SUMMARY | 2025-06-20 10:17 | XMS_ITS | Encounter Summary ---
Author Organization [facility] Address [address] [place] [address] Care Team Providers Care Digital Cartographer Name Role Phone AliciaAnuel abad Primary Care Provider [phone] Justin Flowers MD Unavailable Erlin Chong MD Unavailable Alexandra Powell RN Unavailable [phone] Encounter Details Date Type Department Care Team (Late st Contact Info) Description 06/17/2025 Telephone [facility] Transplant Heart [address] [facility] [phone] [place] [address] Mono Niño, CECE Social History Tobacco Use Types Packs/Day Years Used Date Smoking Tobacco: Never Passive Smoke Exposure: Never Smokeless Tobacco: Never [facility] Utilities Answer Date Recorded In the past 12 months has [employer], gas, oil, or water [employer] threatened to shut off services in your [...] How often do you attend chur or taoist services? Never 04/10/2025 Do you belong to any clubs o r organizations such as gnosticism groups, unions, fraternal or athletic groups, or [...] time in the past 12 m [facility], were you homeless or living in [...] on file Legal Sex Male 12:25 PM LABOR RELATIONS TEACHER Gender Identity Male 05/28/2021 8:44 PM CDT Sexual Orientation Straight 10/19/2022 9: 47 AM LABOR RELATIONS TEACHER documented as of this encounter Miscellaneous Notes * Telephone Encounter - Mono Niño RN - 06/17/2025 11:03 PM CDT 4-week visit s/p heart transplant- Clinic date 06/17/2025 Patient seen at [facility] by Dr. Fairbanks for biopsy, echo, labs. Patient denies Nausea, Vomiting, Diarrhea,and Tremors. Patient endorses Headache, Edema, and Shortness of breath. Patient is feeling OK and is able to complete ADL with some assistance. [facility]. Home logs: BP: 100-130/60-70 HR: 80-100 BS: AM: 100-110 PM: 130s Med list changes include: Hold ASA - recent fall and pericardial effusion Stop Fluconazole Decrease Prednisone to 15 mg Daily (prior dose 20 mg) - protocol Stop Bumex - no urine response Start Torsemide 20 mg Daily - LE edema Pt???s med list (blue card) and medication list reconciled. Results: RN Follow Up: Next appointment: 07/01/25 @ 0900 OV with biopsy, echo, and labs documented in this encounter Plan of Treatment [...] documented as of this encounter Care Teams Digital Cartographer Relationship Specialty Start Date End Date Anuel Vargas DO PCP - General Internal Medicine 10/19/22 Justin Flowers MD [address] DIV IM BONE MARROW TRANSPLANT, [address] [place] [address] Consulting Physician Medical Oncology 10/06/23 Erlin Chong MD [address] DIV IM BONE MARROW TRANSPLANT, [address] [place] [address] Referring Physician Cardiology 10/06/23 Alexandra Powell, RN [address] [facility] [address] [place] [address] Dispatch Manager Transplant 05/21/25 documented as of this encounter
--- OUTSIDE RECORDS SUMMARY | 2025-06-20 10:17 | XMS_ITS | Clinical Summary ---
Author Organization [facility] Address [address] [facility] [place] [address] Care Team Providers Care Cross Cut Sawyer Name Role Phone Unavailable Primary Care Provider Unavailabl e Source Comments [facility],non-owned Affiliates and Associated Physician Practices is amultiple site organization consisting of ambulatory clinics and hospital sitesin [place], [place], [place] and [place]. This disclosure is being madepursuant to the Care Everywhere program and may not contain all information available regarding this patient. Last updated 18.[facility] Social History Tobacco Use Types Packs/Day Years [...]
--- OUTSIDE RECORDS SUMMARY | 2025-06-20 10:22 | XMS_ITS | Clinical Summary ---
Author Organization [facility] Address [address] [place] [address] Care Team Providers Care Leakage Tester Name Role Phone Anuel Vargas Primary Care Provider [phone] Justin Flowers MD Unavailable Erlin Chong MD Unavailable [phone] Alexandra Powell RN Unavailable [phone] Allergies No known active allergies Medications pen needle, diabetic (Pen Needle) 32 gauge x 5/32 needle Use as directed once a day. 100 each 025 Active blood-glucose meter kit Use as directed. 1 kit 025 Active blood glucose diagnostic (glucose blood) strip Use as directed up to four times a day. 100 each 1 025 Active lancets misc Use as directed up to 4 times a day. 100 each 1 025 Active alcohol swabs (Alcohol Wipes) pads, medicated Use as directed. 100 each 025 Active pen needle, diabetic 32 gauge x 5/32 needle Use as directed 3 times a day. 100 each 025 Active methocarbamoL (ROBAXIN) 500 mg tablet Take 1 tablet (500 mg total) by mouth 3 (three) times a day as needed for muscle spasms 90 tablet 025 Active mycophenolate mofetil (CELLCEPT) 500 mg tablet Take 2 tablets (1,000 mg total) by mouth every 12 (twelve) hours 120 tablet 11 2 025 07/18/ [address] (PROTONIX) 20 mg EC tabletIndication s:Stress Ulcer Prophylaxis Take 1 tablet (20 mg total) by mouth daily 30 tablet 2025 Active rosuvastatin (CRESTOR) 10 mg tablet Take 1 tablet (10 mg total) by mouth nightly 30 tablet 2025 Active tacrolimus 1 mg immediate-releas e capsuleIndicatio ns:immunosuppres ibeth Take 2 capsules (2 mg total) by mouth daily AND 1 capsule (1 mg total) nightly. 90 capsule Active valGANciclovir (VALCYTE) 450 mg tabletIndication s:Prophylaxis, Medical Take 1 tablet (450 mg total) by mouth daily 30 tablet 2 2024 Active glucagon 1 mg kit Inject 1 mg into the muscle once as directed by provider for low blood sugar. 1 kit Active insulin glargine (LANTUS) 100 unit/mL (3 mL) pen for injection Inject 31 Units under the skin daily 15 mL Active dapsone 100 mg tabletIndication s:Pneumocystis/T oxoplasmosis Prophylaxis Take 1 tablet (100 mg total) by mouth daily 30 tablet 2025 Active oxyCODONE (ROXICODONE) 5 mg immediate release tabletIndication s:Pain Take 0.5 tablets (2.5 mg total) by mouth every 6 (six) hours as needed for pain 14 tablet Active empagliflozin (JARDIANCE) 25 mg tablet Take 1 tablet (25 mg total) by mouth daily 30 tablet Active sodium zirconium cyclosilicate (LOKELMA) 10 gram packetIndication s:hyperkalemia Take 1 packet (10 g total) by mouth daily Take at noon 30 packet 3 Active glecaprevir-pibr entasvir (MAVYRET) 100-40 mg tablet per tabletIndication s:Viral Hepatitis C,8 week course Take 3 tablets by mouth daily take with food 168 tablet Active predniSONE (DELTASONE) 5 mg tablet Take 3 tablets (15 mg) by mouth daily 120 tablet 5 Active torsemide (DEMADEX) 20 mg tablet Take 1 tablet (20 mg total) by mouth daily 90 tablet 3 025 2025 Active dexlansoprazole (DEXILANT) 60 mg capsuleIndicatio ns:Stomach pain,Gastroesoph ageal reflux disease, unspecified whether esophagitis present Take 1 capsule (60 mg total) by mouth daily 30 capsule 2 024 2024 Discontinued digoxin (LANOXIN) 125 mcg (0.125 mg) tabletIndication s:High risk medication use,Paroxysmal atrial fibrillation (HCC) Take 1 tablet (125 mcg total) by mouth daily 30 tablet 11 024 2024 Discontinued droxidopa (NORTHERA) 300 mg tablet Take 1 capsule (300 mg total) by mouth 3 (three) times a day 024 2024 Discontinued midodrine (PROAMATINE) 10 mg tabletIndication s:Symptomatic Orthostatic Hypotension Take 1 tablet (10 mg total) by mouth daily before breakfast AND 1 tablet (10 mg total) with lunch AND 1 tablet (10 mg total) daily with dinner. 90 tablet 11 024 2024 Discontinued empagliflozin (Jardiance) 10 mg tabletIndication s:Chronic combined systolic and diastolic congestive heart failure (HCC) Take 1 tablet (10 mg total) by mouth daily 90 tablet 3 025 2024 Discontinued diphenhydrAMINE 25 mg capsuleIndicatio ns:AL amyloidosis (HCC) Take 1 tablet/capsule (25 mg total) by mouth 1 to 3 hours prior to each daratumumab dose. 30 tablet/caps ule 025 2024 Discontinued torsemide (DEMADEX) 20 mg tabletIndication s:High risk medication use,Chronic combined systolic and diastolic heart failure (HCC) Take 1 tablet (20 mg total) by mouth daily 90 tablet 3 025 2024 Discontinued dexAMETHasone (DECADRON) 4 mg tabletIndication s:AL amyloidosis (HCC) Take 2 tablets (8 mg total) by mouth 1 to 3 hours prior to each daratumumab dose. 2 tablet 8 025 2024 Discontinued dexAMETHasone (DECADRON) 4 mg tabletIndication s:AL amyloidosis (HCC) Take 2 tablets (8 mg total) by mouth 1 to 3 hours prior to each daratumumab dose. 2024 Discontinued diphenhydrAMINE 25 mg capsuleIndicatio ns:AL amyloidosis (HCC) Take 1 tablet/capsule (25 mg total) by mouth 1 to 3 hours prior to each daratumumab dose. 2024 Discontinued acetaminophen (TYLENOL) 325 mg tablet Take 2 tablets (650 mg total) by mouth as needed 2024 Discontinued apixaban (ELIQUIS) 5 mg tablet Take 1 tablet (5 mg total) by mouth 2 (two) times a day 024 2024 Discontinued eplerenone (INSPRA) 25 mg tablet Take 1 tablet (25 mg total) by mouth daily 2024 Discontinued glecaprevir-pibr entasvir (MAVYRET) 100-40 mg tablet per tabletIndication s:Viral Hepatitis C Take 3 tablets by mouth daily take with food 84 tablet 025 2024 Discontinued glecaprevir-pibr entasvir (MAVYRET) 100-40 mg tablet per tabletIndication s:Viral Hepatitis C Take 3 tablets by mouth daily take with food 168 tablet 025 2024 Discontinued(R eorder) insulin glargine (LANTUS) 100 unit/mL (3 mL) pen for injection Inject 24 Units under the skin daily 7.2 mL 025 2024 Discontinued glucagon 1 mg kit Inject 1 mg into the muscle once as directed by provider for low blood sugar. 1 kit 2024 Discontinued insulin lispro (ADMELOG) 100 unit/mL pen for injection Inject 1-5 units under the skin 3 (three) times a day with meals. Blood glucose mg/dL 150-199: 1 unit, 200-249: 2 units, 250-299: 3 units, 300-349: 4 units, 350 and greater: 5 units. Notify provider for blood glucose greater than 299 mg/dL. Refer to After Visit Summary for Sliding Scale Insulin Instructions. 15 mL 3 025 2024 Discontinued dapsone 100 mg tabletIndication s:Pneumocystis/T oxoplasmosis Prophylaxis Take 1 tablet (100 mg total) by mouth daily 30 tablet 11 2024 Discontinued fluconazole (DIFLUCAN) 100 mg tabletIndication s:Prophylaxis, Medical Take 1 tablet (100 mg total) by mouth daily 30 tablet 2024 Discontinued(T herapy completed) oxyCODONE (ROXICODONE) 5 mg immediate release tabletIndication s:Pain Take 0.5 tablets (2.5 mg total) by mouth every 6 (six) hours as needed for pain 2024 Discontinued predniSONE (DELTASONE) 5 mg tablet Take 4 tablets (20 mg) by mouth daily 120 tablet 5 2024 Discontinued sulfamethoxazole -trimethoprim (BACTRIM) 400-80 mg per tabletIndication s:Prophylaxis, Medical Take 1 tablet (80 mg of trimethoprim total) by mouth 3 (three) times a week 12 tablet 11 2024 Discontinued insulin glargine (LANTUS) 100 unit/mL (3 mL) pen for injection Inject 28 Units under the skin nightly 15 mL 11 2024 Discontinued bumetanide (BUMEX) 1 mg tablet Take 1 tablet (1 mg total) by mouth daily 30 tablet 2024 Discontinued bumetanide (BUMEX) 1 mg tablet Take 1 tablet (1 mg total) by mouth 2 (two) times a day 60 tablet 2024 Discontinued(A lternate therapy) glecaprevir-pibr entasvir (MAVYRET) 100-40 mg tablet per tabletIndication s:Viral Hepatitis C,8 week course Take 3 tablets by mouth daily take with food 168 tablet 025 2024 Discontinued(R eorder) Active Problems Problem Noted Date Diagnosed Date Acute hepatitis C virus infection without hepati c coma 06/17/2025 Overview (06/17/2025): Hep C IRINA+ donor with seroconversion - Antiviral therapy started 06/05/25 Hyperkalemia 06/17/2025 Overview (06/17/2025): Post-transplant - Continue dapsone 100mg given persistent hyperkalemia, dc [place], subsequent encounter 06/17/2025 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 06/07/2025 Overview (06/17/2025): S/p Heart Transplant for AL cardiac amyloidosis on 05/20/2025 Donor/Recipient Characteristics PRA: Class I current 0 %; Class II current 0 % (HLA Antibody Screen - SAB, Class I and II) CMV - Donor: Positive/Recipient: positive EBV - Donor: Positive/Recipient: positive Toxo - Donor: Negative/Recipient: negative Heart transplanted 06/01/2025 Assessment & Plan (06/11/2025 11:38 AM CDT): -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 EF 70-75 %. Normal right ventricular size. Moderate right ventricular hypokinesis, Mildly dilated left atrium. Mild tricuspid regurgitation. Small to moderate pericardial effusion. -06/11 Bumex 1 mg po BID for home dosing started Chronic constipation 05/29/2025 Assessment & Plan (06/11/2025 11:39 AM CDT): -Reports baseline constipation with bowel movement 1-2 times per week -CT AP 05/24 - no SBO -Continue aggressive bowel regimen -PT/OT, OOBTC -resolved Hyperglycemia 05/29/2025 Assessment & Plan (06/11/2025 11:38 AM CDT): -A1C 6.8 05/20 -Likely complicated by secondary to stress response and steroid use -Continue lantus 31 units daily (increased 06/10) regime simplified for discharge per Transplant PharmD recommendations -06/10 diabetes education completed, and diabetes supplies delivered. Pt observed self administering insulin by RN History of multinodular goiter 04/10/2025 Assessment & Plan (05/29/2025 11:37 PM CDT): -History of multinodular goiter s/p left hemithyroidectomy -Thyroid US 04/10 - right mid TR5 nodule (size unchanged from prior 2020 imaging but with changed internal features leading to reclassification from TR3 to TR5), unchanged TR4 right mid-isthmus nodule -FNA 04/11 - right isthmus lobe with atypica of undetermined significance, right inferior lobe benign; tissue from isthmus nodule sent for further testing with Thyroseq -Endocrinology consulted, now signed off -Thyroseq testing negative Assessment & Plan (04/16/2025 5:45 PM CDT): Multinodular goiter, history of left hemithyroidectomy ~1999. 2 right-sided thyroid nodules were biopsied 03/17/2021 and 04/15/2021, one nodule was benign (described as right middle posterior), and the other nodule (described as right lower) demonstrated atypia of undetermined significance with Afirma testing reportedly showing likely benign lesion 4% risk of malignancy. -Thyroid US 04/10: Right mid TR5 nodule is unchanged in size compared to 202, though the internal features appear different and thus the TI-RADS category has changed from TR3 (<5% malignancy) to TR5 (>80% malignancy). Unchanged TR4 right mid/isthmus nodule. -Per radiology, it is not clear which of the 2 nodules corresponds to which pathology from his biopsies in 2020 -Endocrine consulted and recommended US fine needle aspiration of TR5 nodule- save specimen to send for thyroseq if indeterminate cytology -FNA completed on 04/11 -Thyroid biopsy results: R inferior: Benign R isthmus: Atypia of undetermined significance -Endocrine recommends sending out indeterminate sample for molecular testing (ThyroSeq) -[facility] contacted ([phone] option 4)-they are planning send sample out on Tuesday- Endo verified that ThyroSeq was sent 04/16 -Neck biopsy sites x 2 stable Assessment & Plan (04/14/2025 2:14 PM CDT): Multinodular goiter, history of left hemithyroidectomy ~1999. 2 right-sided thyroid nodules were biopsied 03/17/2021 and 04/15/2021, one nodule was benign (described as right middle posterior), and the other nodule (described as right lower) demonstrated atypia of undetermined significance with Afirma testing reportedly showing likely benign lesion 4% risk of malignancy. -Thyroid US 04/10: Right mid TR5 nodule is unchanged in size compared to 2020, though the internal features appear different and thus the TI-RADS category has changed from TR3 (<5% malignancy) to TR5 (>80% malignancy). Unchanged TR4 right mid/isthmus nodule. -Per radiology, it is not clear which of the 2 nodules corresponds to which pathology from his biopsies in 2020 -Endocrine consulted and recommended US fine needle aspiration of TR5 nodule- save specimen to send for thyroseq if indeterminate cytology -FNA completed on 04/11 -Thyroid biopsy results: R inferior: Benign R isthmus: Atypia of undetermined significance -Endocrine recommends sending out indeterminate sample for molecular testing (ThyroSeq) -[facility] contacted ([phone] option 4)-they are planning send sample out on Tuesday ( weekend) but should touch base with them again to make sure it gets sent PRESTON -Neck biopsy sites x 2 stable Assessment & Plan (04/13/2025 2:12 PM CDT): Multinodular goiter, history of left hemithyroidectomy ~1999. 2 right-sided thyroid nodules were biopsied 03/17/2021 and 04/15/2021, one nodule was benign (described as right middle posterior), and the other nodule (described as right lower) demonstrated atypia of undetermined significance with Afirma testing reportedly showing likely benign lesion 4% risk of malignancy. -Thyroid US 04/10: Right mid TR5 nodule is unchanged in size compared to 2020, though the internal features appear different and thus the TI-RADS category has changed from TR3 (<5% malignancy) to TR5 (>80% malignancy). Unchanged TR4 right mid/isthmus nodule. -Per radiology, it is not clear which of the 2 nodules corresponds to which pathology from his biopsies in 2020 -Endocrine consulted and recommended US fine needle aspiration of TR5 nodule- save specimen to send for thyroseq if indeterminate cytology -FNA completed on 04/11 -Thyroid biopsy results: R inferior: Benign R isthmus: atypia of undetermined significance -Sending out molecular testing (ThyroSeq) per endocrine recommendation -Neck biopsy sites x 2 stable Assessment & Plan (04/12/2025 10:08 AM CDT): Multinodular goiter, history of left hemithyroidectomy ~1999. 2 right-sided thyroid nodules were biopsied 03/17/2021 and 04/15/2021, one nodule was benign (described as right middle posterior), and the other nodule (described as right lower) demonstrated atypia of undetermined significance with Afirma testing reportedly showing likely benign lesion 4% risk of malignancy. -Thyroid US 04/10: Right mid TR5 nodule is unchanged in size compared to 2020, though the internal features appear different and thus the TI-RADS category has changed from TR3 (<5% malignancy) to TR5 (>80% malignancy). Unchanged TR4 right mid/isthmus nodule. -Per radiology, it is not clear which of the 2 nodules corresponds to which pathology from his biopsies in 2020 -Endocrine consulted and recommended US fine needle aspiration of TR5 nodule- save specimen to send for thyroseq if indeterminate cytology -FNA completed on 04/11-results pending -Neck biopsy sites x 2 stable Assessment & Plan (04/11/2025 11:13 AM CDT): Multinodular goiter, history of left hemithyroidectomy ~1999. 2 right-sided thyroid nodules were biopsied 03/17/2021 and 04/15/2021, one nodule was benign (described as right middle posterior), and the other nodule (described as right lower) demonstrated atypia of undetermined significance with Afirma testing reportedly showing likely benign lesion 4% risk of malignancy. -Thyroid US 04/10: Right mid TR5 nodule is unchanged in size compared to 2020, though the internal features appear different and thus the TI-RADS category has changed from TR3 (<5% malignancy) to TR5 (>80% malignancy). Unchanged TR4 right mid/isthmus nodule. -Per radiology, it is not clear which of the 2 nodules corresponds to which pathology from his biopsies in 2020 -Consult endocrine/IR for biopsy Autonomic dysfunction 04/09/2025 Assessment & Plan (06/11/2025 11:40 AM CDT): -Secondary to AL amyloidosis with hypotension at baseline - takes midodrine and droxidopa at home -SBP > 95 - 06/04 currently requiring no support, will not be discharged on any support Assessment & Plan (04/16/2025 5:47 PM CDT): Autonomic dysfunction with orthostasic hypotension -Continue droxidopa 300mg TID and midodrine 10mg TID Assessment & Plan (04/14/2025 2:04 PM CDT): Autonomic dysfunction with orthostasic hypotension -Continue droxidopa 300mg TID and midodrine 10mg TID Assessment & Plan (04/13/2025 2:01 PM CDT): Autonomic dysfunction with orthostasic hypotension -Continue droxidopa 300mg TID and midodrine 10mg TID Assessment & Plan (04/12/2025 10:03 AM CDT): Autonomic dysfunction with orthostasic hypotension -Continue droxidopa 300mg TID and midodrine 10mg TID Assessment & Plan (04/11/2025 10:57 AM CDT): Autonomic dysfunction with orthostasic hypotension -Continue droxidopa 300mg TID and midodrine 10mg TID Assessment & Plan (04/09/2025 1:50 PM CDT): -with orthostasic hypotension -continue droxidopa 300mg tid, midodrine 10mg tid Acute kidney injury superimposed on CKD 03/15/20 Assessment & Plan (06/11/2025 12:00 PM CDT): -Follows with Nephrology outpatient due to amyloidosis, baseline Cr reportedly 1.3-1.5 -Developed CATHERINE following transplant -Avoid nephrotoxins as able, renally dose medications -Optimize BP for renal perfusion -Monitor intake and output, daily weight -Daily BMP - 06/10 lokelma daily - 06/11 bumex increased to 1 mg to BID for discharge Assessment & Plan (04/16/2025 5:46 PM CDT): Recent baseline appears to be 1.3-1.5, recently saw nephrology in clinic with a documented baseline Cr of 1-1.1 -Cr currently 1.30 -Hold torsemide -Avoid nephrotoxins and renally dose medications -Follow daily BMP Assessment & Plan (04/14/2025 2:05 PM CDT): Recent baseline appears to be 1.3-1.5, recently saw nephrology in clinic with a documented baseline Cr of 1-1.1 -Cr currently 1.45 -Hold torsemide -Avoid nephrotoxins and renally dose medications -Follow daily BMP Assessment & Plan (04/13/2025 2:01 PM CDT): Recent baseline appears to be 1.3-1.5, recently saw nephrology in clinic with a documented baseline Cr of 1-1.1 -Cr currently 1.24 -Avoid nephrotoxins and renally dose medications -Follow daily BMP Assessment & Plan (04/12/2025 10:03 AM CDT): Recent baseline appears to be 1.3-1.5, recently saw nephrology in clinic with a documented baseline Cr of 1-1.1 -Cr currently 1.34 -Avoid nephrotoxins and renally dose medications -Follow daily BMPs Assessment & Plan (04/11/2025 10:59 AM CDT): Recent baseline appears to be 1.3-1.5, recently saw nephrology in clinic with a documented baseline Cr of 1-1.1 -Cr currently 1.63 -Avoid nephrotoxins and renally dose medications -Follow daily BMPs Assessment & Plan (04/09/2025 1:47 PM CDT): Recent baseline appears to be 1.3-1.5, recently saw nephrology in clinic with a documented baseline cr 1-1.1 -cr currently 1.3 -avoid nephrotoxins High risk medication use 02/03/2024 Orthostasis 02/03/2024 AL amyloidosis 10/04/2023 Assessment & Plan (06/07/2025 3:46 PM CDT): -06/06 amyloid panel showed normal free light chains -Takes daratumumab monthly outpatient to complete 24 months of therapy; last dose 04/30 -BMT - no plans for daratumumab therapy at this time, will set up follow up outpatient ILD (interstitial lung disease) 07/19/2023 GERD (gastroesophageal reflux disease) 2 Assessment & Plan (05/29/2025 11:34 PM CDT): -Continue home pantoprazole Assessment & Plan (04/16/2025 5:46 PM CDT): -Continue pantoprazole 40 mg daily Assessment & Plan (04/14/2025 2:05 PM CDT): -Continue pantoprazole 40 mg daily Assessment & Plan (04/13/2025 2:01 PM CDT): -Continue pantoprazole 40 mg daily Assessment & Plan (04/12/2025 10:03 AM CDT): -Continue pantoprazole Assessment & Plan (04/11/2025 10:59 AM CDT): -Continue pantoprazole Multiple lung nodules 11/26/2021 Physical deconditioning 11/26/2021 Hypertension, essential 06/02/2021 Assessment & Plan (08/04/2021 9:54 AM CDT): Salt restriction. Hydrochlorothiazide. Atenolol. Blood pressure 120/70. Assessment & Plan (06/02/2021 11:27 AM CDT): Salt restriction. Hydrochlorothiazide. Blood pressure 112/70. Resolved Problems Problem Noted Date Diagnosed Date Resolved Date Acute pain 05/29/2025 06/17/2025 Assessment & Plan (06/11/2025 11:41 AM CDT): -Expected following cardiac surgery -PRN APAP - reports pain controlled, will be discharged with oxycodone as discomfort may occur after increasing daily activities Leukocytosis 05/29/2025 06/11/2025 Assessment & Plan (05/29/2025 11:39 PM CDT): -Likely secondary to inflammatory response and steroid use -Ambar-operative antibiotics completed -Immunosuppression and OI prophylaxis per Transplant -Daily CBC Heart failure 04/17/2025 05/29/2025 Heart failure with reduced e jection fraction (HFrEF, <= 40%) and combined systolic and diastolic dysfunction 04/08/2025 06/01/2025 Assessment & Plan (04/16/2025 5:46 PM CDT): Biopsy proven AL amyloid, now in complete hematologic remission after Stephanie- CyborD treatment. Now on maintenance monthly daratumumab. He has significant cardiac involvement with low output failure, and restrictive myopathy. -Presented for advanced heart failure therapies evaluation following RHC -RHC (04/08) with normal left heart filling pressures, elevated right heart filling pressures, mild pulmonary hypertension, and low cardiac output at rest. -TTE at [facility] 12/2024: EF 30-35%, moderate RV dysfunction, severe diastolic dysfunction, could not rule out LV apical thrombus -NT-proBNP 7,899 -Hemodynamically stable -Continue dobutamine gtt 2.5mcg/kg/min -Hold torsemide -Continue digoxin 125mcg daily (dig level 0.5 on 04/08) and eplerenone 25mg daily (recently switched from spironolactone due to breast tenderness) -Intolerant of additional GDMT due to hypotension -Advanced therapies evaluation ongoing: SOURAV, carotid dopplers, PFTs complete. CT CAP w/enlarged multinodular R thyroid lobe (thyroid ultrasound completed as elsewhere), colonoscopy completed in 2021 -Preliminarily accepted for OHT pending final thyroid biopsy results -Per BMT, pt will complete monthly daratumumab in August or when he is transplanted, whichever comes first -RHC w/ leave-in [place] today -Strict I&Os, daily standing weights, 2G sodium diet, telemetry monitoring Assessment & Plan (04/14/2025 2:07 PM CDT): Biopsy proven AL amyloid, now in complete hematologic remission after Stephanie- CyborD treatment. Now on maintenance monthly daratumumab. He has significant cardiac involvement with low output failure, and restrictive myopathy. -Presented for advanced heart failure therapies evaluation following RHC -RHC (04/08) with normal left heart filling pressures, elevated right heart filling pressures, mild pulmonary hypertension, and low cardiac output at rest. -TTE at [facility] 12/2024: EF 30-35%, moderate RV dysfunction, severe diastolic dysfunction, could not rule out LV apical thrombus -NT-proBNP 7,899 -Hemodynamically stable -Continue dobutamine gtt 2.5mcg/kg/min -Hold torsemide -Continue digoxin 125mcg daily (dig level 0.5 on 04/08) and eplerenone 25mg daily (recently switched from spironolactone due to breast tenderness) -Intolerant of additional GDMT due to hypotension -Advanced therapies evaluation ongoing: SOURAV, carotid dopplers, PFTs complete. 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 Now on maintenance monthly daratumumab. He has significant cardiac involvement with low output failure, and restrictive myopathy. -Presented for advanced heart failure therapies evaluation following RHC -RHC (04/08) with normal left heart filling pressures, elevated right heart filling pressures, mild pulmonary hypertension, and low cardiac output at rest. -TTE at [facility] 12/2024: EF 30-35%, moderate RV dysfunction, severe diastolic dysfunction, could not rule out LV apical thrombus -NT-proBNP 7,899 -Hemodynamically stable -Continue dobutamine gtt 2.5mcg/kg/min -Continue GDMT: digoxin 125mcg daily, torsemide 20mg BID, empagliflozin 10mg daily, eplerenone 25mg daily (recently switched from spironolactone due to breast tenderness) -Intolerant of additional GDMT due to hypotension -Continue droxidopa and midodrine for autonomic dysfunction -Digoxin level 0.5 on 04/08 -Advanced therapies evaluation ongoing: SOURAV, carotid dopplers, PFTs complete. 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 Now on maintenance monthly daratumumab. He has significant cardiac involvement with low output failure, and restrictive myopathy. -Presented for advanced heart failure therapies evaluation following RHC -RHC (04/08) with normal left heart filling pressures, elevated right heart filling pressures, mild pulmonary hypertension, and low cardiac output at rest. -TTE at [facility] 12/2024: EF 30-35%, moderate RV dysfunction, severe diastolic dysfunction, could not rule out LV apical thrombus -NT-proBNP 7,899 -Hemodynamically stable -Continue dobutamine gtt 2.5mcg/kg/min -Continue GDMT: digoxin 125mcg daily, torsemide 20mg BID, empagliflozin 10mg daily, eplerenone 25mg daily (recently switched from spironolactone due to breast tenderness) -Intolerant of additional GDMT due to hypotension -Continue droxidopa and midodrine for autonomic dysfunction -Digoxin level 0.5 on 04/08 -Advanced therapies evaluation ongoing: SOURAV, carotid dopplers, PFTs complete. 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 Now on maintenance monthly daratumumab. He has significant cardiac involvement with low output failure, and restrictive myopathy. -Presented for advanced heart failure therapies evaluation following RHC -RHC (04/08) with normal left heart filling pressures, elevated right heart filling pressures, mild pulmonary hypertension, and low cardiac output at rest. -TTE at [facility] 12/2024: EF 30-35%, moderate RV dysfunction, severe diastolic dysfunction, could not rule out LV apical thrombus -NT-proBNP 7,899 -Hemodynamically stable -Continue dobutamine gtt 2.5mcg/kg/min -Continue GDMT: digoxin 125mcg daily, torsemide 20mg BID, empagliflozin 10mg daily, eplerenone 25mg daily (recently switched from spironolactone due to breast tenderness) -Intolerant of additional GDMT due to hypotension -Continue droxidopa and midodrine for autonomic dysfunction -Digoxin level 0.5 on 04/08 -Advanced therapies evaluation ongoing: SOURAV, carotid dopplers, PFTs complete. CT CAP w/ enlarge multinodular R thyroid lobe (thyroid ultrasound completed as elsewhere), colonoscopy completed in 2021 -Planning to discuss at multidisciplinary meeting tomorrow -Per BMT, pt will complete monthly daratumumab in August or when he is transplanted, whichever comes first -Strict I&Os, daily standing weights, 2G sodium diet, telemetry monitoring Assessment & Plan (04/09/2025 1:35 PM CDT): Biopsy proven AL amyloid, and is now in complete hematologic remission after Stephanie-CyborD treatment. Now on maintenance monthly daratumumab. He has significant cardiac involvement with low output failure, and restrictive myopathy. -presented for advanced heart failure therapies evaluation following RHC -RHC (04/08) with normal left heart filling pressures, elevated right heart filling pressures, mild pulmonary hypertension, and low cardiac output at rest. 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 CT CAP w/ enlarge multinodular R thyroid lobe (obtaining thyroid ultrasound), needs PFTS, colonoscopy completed in 2021 -per BMT, pt will complete monthly daratumumab in August or when he is transplanted, whichever comes first -monitor I/O, daily wt Chronic heart failure with p reserved ejection fraction 04/02/2025 05/29/2025 Paroxysmal atrial fibrillation 05/03/2024 05/29/2025 Assessment & Plan (05/29/2025 11:13 PM CDT): -History of pAF on Eliquis - no eliquis inpatient, tx with bivalirudin gtt -Remains NSR/ST -Continue bival gtt -Replete electrolytes as appropriate -Continuous telemetry monitoring Assessment & Plan (04/16/2025 5:42 PM CDT): -Currently sinus rhythm, HR 90s -Holding apixaban for possible invasive procedures -Continue heparin gtt -Telemetry Assessment & Plan (04/14/2025 2:13 PM CDT): -Currently sinus rhythm, HR 90s -Holding apixaban for possible invasive procedures -Continue heparin gtt -Telemetry Assessment & Plan (04/13/2025 2:08 PM CDT): -Currently sinus rhythm, HR 90s -Holding apixaban for possible invasive procedures -Continue heparin gtt -Telemetry Assessment & Plan (04/12/2025 10:05 AM CDT): -Currently sinus rhythm, HR 90s -Holding apixaban for possible invasive procedures -Continue heparin gtt -Telemetry Assessment & Plan (04/11/2025 11:11 AM CDT): -Currently sinus rhythm, HR 90s -Holding apixaban for possible invasive procedures -Continue heparin gtt -Telemetry Assessment & Plan (04/09/2025 1:36 PM CDT): Currrently SR -holding apixaban -continue heparin drip -telemetry Acute on chronic congestive heart failure, unspecified heart failure type 11/27/2023 Proteinuria 11/21/2023 05/29/2025 Assessment & Plan (05/29/2025 11:13 PM CDT): -Likely secondary to amyloid, followed by Nephrology outpatient -Avoid NSAIDs Assessment & Plan (04/16/2025 5:42 PM CDT): Likely secondary to amyloid, followed by nephrology as an outpatient -Avoid NSAIDS Assessment & Plan (04/14/2025 2:13 PM CDT): Likely secondary to amyloid, followed by nephrology as an outpatient -Avoid NSAIDS Assessment & Plan (04/13/2025 2:08 PM CDT): Likely secondary to amyloid, followed by nephrology as an outpatient -Avoid NSAIDS Assessment & Plan (04/12/2025 10:06 AM CDT): Likely secondary to amyloid, followed by nephrology as an outpatient -Avoid NSAIDS Assessment & Plan (04/11/2025 11:11 AM CDT): Likely secondary to amyloid, followed by nephrology as an outpatient -Avoid NSAIDS Assessment & Plan (04/09/2025 1:48 PM CDT): Likely secondary to amyloid, followed by nephrology as an outpatient -avoid NSAIDS Localized edema 11/21/2023 06/17/2025 (HFpEF) heart failure with p reserved ejection fraction 05/10/2022 04/09/2025 Overview (05/10/2022): diastolic dysfunction CAD (coronary artery disease) 05/10/2022 06/17/2025 Chronic combined systolic an d diastolic heart failure 02/17/2022 06/17/[address] 01/05/2022 06/17/2025 Abnormal finding on lung imaging 11/26/2021 06/17/2025 Diastolic dysfunction 11/26/20212024 Chronic fatigue 08/04/2021 06/17/2025 Assessment & Plan (08/04/2021 9:59 AM CDT): No cardiac explanation for the fatigue. May be stress related. Recent electrolytes, liver chemistries, CBC are okay. Will check T4 and TSH. Chronic cough 08/04/2021 06/17/2025 Assessment & Plan (08/04/2021 9:57 AM CDT): Has seen Dr. Lalo Amador from the pulmonary Service. Apparently has pulmonary nodules which are not growing. PET scan was negative. Continues to have a cough. I told him to start using the albuterol inhaler 2 puffs b.i.d. for a few weeks to see if it makes any difference on his cough. Positive cardiac stress test 07/02/2021 06/17/2025 Overview (07/02/2021): Added automatically from request for surgery [id number] Assessment & Plan (08/03/2021 5:06 PM CDT): Positive stress echo 07/01/2021. Cardiac catheterization 07/13/2021 showed no significant coronary disease. Precordial chest pain 06/02/20212024 Assessment & Plan (08/03/2021 5:04 PM CDT): Stress echo 07/01/2021 was clinically and electrocardiographically positive for ischemia. Cardiac catheterization on 07/13/[address] Pimentel showed no significant coronary disease. Assessment & Plan (06/02/2021 11:28 AM CDT): The EKG today shows normal sinus rhythm, T-wave changes. Will set up a stress echo to look for myocardial ischemia. Exertional dyspnea 06/02/2021 Assessment & Plan (08/03/2021 5:05 PM CDT): Recent echo showed normal ejection fraction. Diastolic dysfunction of the left ventricle. No significant valvular abnormality. Abnormal stress test but the subsequent cardiac catheterization on 07/13/2021 showed no significant coronary disease. Assessment & Plan (06/02/2021 11:28 AM CDT): Recent echo showed normal ejection fraction. Diastolic dysfunction of the left ventricle. No significant valvular abnormality. The findings were discussed with the patient in detail and he was reassured. No pertinent past medical history 01/22/2021 06/17/2025 Encounters Date Type Department Care Team Description 06/18/2025 1:52 PM CDT - 06/18/2025 11:59 PM CDT Hospital Encounter [facility] ([facility]) [address] [place] [address] Heart transplanted (HCC) Discharge Disposition: Discharge to home or self care 06/18/2025 12:30 PM CDT Office Visit [facility] [address] [facility] 8th Floor [address] Room 08-085 [place] [address] Addy Tapia MD Heart transplanted (HCC) (Primary Dx) 06/18/2025 12:06 PM CDT - 06/18/2025 11:59 PM CDT Hospital Encounter [facility] [address] [place] [id number] Follow-up examination following surgery Discharge Disposition: Discharge to home or self care 06/17/2025 1:58 PM CDT - 06/17/2025 11:59 PM CDT Hospital Encounter [address] [address] 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) Discharge Disposition: Discharge to home or self care 06/17/2025 12:00 PM CDT Office Visit [facility] [address] [place] [address] Medical Office Building [address] [place] [address] Acute kidney injury superimposed on CKD (Primary Dx); Acute hepatitis C virus infection without hepatic coma; AL amyloidosis (HCC); 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); Heart transplanted (HCC) 06/17/2025 12:00 PM CDT - 06/17/2025 12:30 PM CDT Surgery [address] [place] [address] Carlos Fairbanks MD ENDOMYOCARDIAL BIOPSY [id number] 06/17/2025 12:00 PM CDT - 06/17/2025 11:59 PM CDT Hospital Encounter [address] [place] [address] Rodney Amos MD PhD 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) Discharge Disposition: Discharge to home or self care 06/17/2025 11:28 AM CDT - 06/17/2025 11:59 PM CDT Hospital Encounter [address] [place] [address] 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) Discharge Disposition: Discharge to home or self care 06/17/2025 Telephone [facility] Transplant Heart [address] [facility] [address] Mailstop [phone] [place] [address] Mono Niño, CECE 06/14/2025 Orders Only [facility] [address] [facility] 12th [place] [address] [place] [address] Yamel Pearson RN Hepatitis C virus infection without hepatic coma, unspecified chronicity (Primary Dx) 06/14/2025 Telephone [facility] Transplant Heart [address] [facility] [address] Mailstop [phone] [place] [address] Chidi Iglesias 06/13/2025 Telephone [facility] Transplant Heart [address] [facility] [address] Mailstop [phone] [place] [address] Yue Corado 06/13/2025 Orders Only [facility] Transplant Heart [address] [facility] 3401 Mailstop [phone] [place] [address] Yue Corado 06/13/2025 Telephone [facility] [address] [facility] 12th [place] [address] [place] [address] Yamel Pearson RN 06/13/2025 Documentation [facility] [address] [facility] 12th [place] [address] [place] [address] Yamel Pearson RN 06/12/2025 7:15 PM CDT - 06/12/2025 8:31 PM CDT Emergency [facility] Emergency Department 1 [place] [address] Yossi Hodges MD Fall, initial encounter (Primary Dx); Multiple abrasions; Periorbital hematoma of right eye; History of heart transplant (HCC) Discharge Disposition: Discharge to home or self care 06/12/2025 Telephone [facility] Social Work 1 [place] [phone] Alexandra Colin LCSW 06/12/2025 Telephone [facility] Transplant Heart [address] [facility] 3401 Mailstop [phone] [place] [address] Alda Coburn 06/11/2025 Orders Only [facility] [address] [facility] Floor 6 [place] [phone] Justin Lowery MD AL amyloidosis (HCC) (Primary Dx) 06/07/2025 Telephone [facility] Transplant Heart [address] [facility] [address] Mailstop [phone] [place] [address] Alexandra Powell, CECE 06/07/2025 Telephone [facility] Transplant Heart [address] [facility] 3401 Mailstop [phone] [place] [address] Alexandra Powell, RN 06/07/2025 Documentation [facility] Metabolism and Lipid [address] [facility] 13th [place] [address] [place] [phone] Carolyn Ponce MD 06/04/2025 Orders Only [facility] [address] [facility] 8th Floor [address] Room 08-085 [place] [phone] Addy Tapia MD Follow-up examination following surgery (Primary Dx) 06/03/2025 8:15 AM CDT - 06/03/2025 9:40 AM CDT Surgery [facility] Heart and Vascular Center 1 [place] [address] Rodney Amos MD PhD ENDOMYOCARDIAL BIOPSY [id number] 05/28/2025 Results Follow-Up [facility] [address] [facility] 12th [place] [address] [place] [phone] Jessica Marti MD Hepatitis C genotype Blood 05/21/2025 Telephone [facility] Transplant Kidney [address] Mailstop [phone] [place] [address] Libia Frances 05/21/2025 Telephone [facility] Transplant Kidney [address] [facility] [address] Mailstop [phone] [place] [address] Libia Frances 05/20/2025 10:32 PM CDT Anesthesia Event [facility] Operating Room 1 [place] [address] Gosia Wilkins MD PhD RoldanAlma jose MD 05/20/2025 10:30 PM CDT - 05/21/2025 8:30 AM CDT Surgery [facility] Operating Room 1 [place] [address] Addy Tapia MD TRANSPLANT HEART UNOS:[id number] [[id number]] 05/20/2025 9:20 PM CDT Ancillary Procedure [facility] Operating Room 1 [place] [address] Gosia Wilkins MD PhD 05/19/2025 Telephone [facility] Transplant Lung [address] [facility] 3401 Mailstop [phone] [place] [address] Radha Sullivan RN Transplant Organ Offer 05/17/2025 9:30 AM CDT - 05/17/2025 10:50 AM CDT Surgery [facility] Heart and Vascular Center 1 [place] [address] Vannesa Gibbs MD RIGHT HEART CATHETERIZATION [id number] 05/16/2025 Documentation [facility] Transplant Heart [address] [facility] [address] Mailstop [phone] [place] [address] Katerina Romero RN Waitlist Maintenance 05/08/2025 Documentation [facility] Metabolism and Lipid [address] [facility] 13th [place] [address] [place] [phone] Edmundo Best MD 05/02/2025 11:40 AM CDT - 05/02/2025 1:50 PM CDT Surgery [facility] Heart and Vascular Center 1 [place] [address] Felicitas Rodgers, RIGHT HEART CATHETERIZATION [address] 05/01/2025 Documentation [facility] Transplant Heart [address] [facility] 3401 Mailstop [address] [place] [address] Katerina Romero RN 04/29/2025 Orders Only [facility] [address] [facility] Floor 6 [place] [address] Stephon Lundy MD 04/29/2025 Orders Only [address] [address] Jerome Mora [facility] 04/17/2025 Documentation [facility] Transplant Heart [address] [facility] [address]01 Mailop [address] [place] [address] Katerina Romero RN New Transplant Listing 04/17/2025 Documentation [facility] Transplant Heart [address] [facility] [address] Mailop [address] [place] [address] Katerina Romero, CECE Hepatitis B Vaccination Assessment 04/17/2025 Documentation [facility] Transplant Heart [address] [facility] [address] Mailstop [phone] [place] [address] Katerina Romero, CECE ABO Verification 04/17/2025 Documentation [facility] Transplant Heart [address] [facility] [address] Mailstop [address] [place] [address] Katerina Romero, CECE 04/17/2025 Orders Only [facility] Metabolism and Lipid [address] [facility] 13th [place] [address] [place] [address] Carolyn Ponce MD Thyroid nodule (Primary Dx) 04/16/2025 10:15 AM CDT - 04/16/2025 11:25 AM CDT Surgery [facility] Heart and Vascular Center 1 [place] [address] Felicitas Rodgers, RIGHT HEART CATHETERIZATION [address] with leave-in [place] 04/12/2025 Documentation [facility] Transplant Heart [address] [facility] [address] Mailstop [phone] [place] [address] Sindy Melara 04/10/2025 Documentation [facility] Transplant Heart [address] [facility] 3401 Mailstop [phone] [place] [address] Katerina Romero, CECE Pre-transplant Patient Education 04/09/2025 11:32 AM CDT - 04/09/2025 11:59 PM CDT Hospital Encounter [facility] 1 [place] [address] Discharge Disposition: Discharge to home or self care 04/09/2025 8:45 AM CDT Ancillary Procedure [facility] IP [address] [facility] [address] [place] [address] 04/09/2025 8:40 AM CDT Ancillary Procedure [facility] IP [address] [facility] [address] [place] [address] 04/09/2025 Telephone [facility] Transplant Heart [address] [facility] 34[address] Mailstop [phone] [place] [address] Katerina Romero, RN 04/09/2025 Telephone [facility] Transplant Kidney [address] [facility] [address]01 Mailstop [phone] [place] [address] Leonor Pollard 04/08/2025 8:15 AM CDT - 04/08/2025 9:30 AM CDT Surgery [facility] Heart and Vascular Center 1 [place] [address] Jessica Snow MD PhD RIGHT HEART CATHETERIZATION [id number] 04/08/2025 7:46 AM CDT - 06/11/2025 4:58 PM CDT Hospital Encounter [address] [address] Artur, Clinical Laboratory Technologist, MD Lawrence, Yaakov Valera MD PhD Sintek, MD Sai Goyal, MD Mavis Harvey, MD Sofya Green, Zev Mckoy MD PhD Willie, MD Gwendolyn Stout Arick Charles, MD PhD 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) [Z94.1] (Primary Dx); Chronic heart failure with preserved ejection fraction (HCC); AL amyloidosis (HCC); Non-ischemic cardiomyopathy (HCC); Heart failure with reduced ejection fraction (HFrEF, <= 40%) and combined systolic and diastolic dysfunction (HCC); Acute on chronic congestive heart failure, unspecified heart failure type (HCC); Heart failure, unspecified HF chronicity, unspecified heart failure type (HCC); Acute postoperative pain; Postoperative respiratory failure; Hyperglycemia; S/P orthotopic heart transplant (HCC); Acute respiratory insufficiency, postoperative; Right ventricular dysfunction; Ileus, postoperative (HCC); CATHERINE (acute kidney injury); Heart transplanted (HCC); 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) Discharge Disposition: Discharge to home, home health skilled care 04/08/2025 Telephone [facility] Transplant Heart [address] [facility] 34[address] Mailstop [phone] [place] [address] Katerina Romero RN 04/05/2025 Telephone [facility] Transplant Heart [address] [facility] [address] Mailstop [phone] [place] [address] Chidi Iglesias 04/04/2025 9:40 AM CDT Office Visit [facility] 5th [place] [address] [place] [address] Jackie Block MD Persistent proteinuria (Primary Dx); CKD (chronic kidney disease) stage 2, GFR 60-89 ml/min; Localized edema 04/03/2025 Telephone [facility] [address] [facility] 8th [place] [address] [place] [address] Erlin Chong MD 04/03/2025 Telephone [facility] Transplant Heart [address] [place] [address] 3401 Mailstop [phone] [place] [address] Chidi Iglesias 04/02/2025 12:00 PM CDT Infusion [facility] - Infusion [address] [facility] Floor 6 [place] [address] AL amyloidosis (HCC) (Primary Dx) 04/02/2025 10:45 AM CDT Office Visit [facility] [address] [facility] Floor 6 [place] [address] Anuradha Gagnon NP AL amyloidosis (HCC) (Primary Dx) 04/02/2025 9:45 AM CDT Lab [facility] - Lab Collection [address] [facility] Floor 6 [place] [address] AL amyloidosis (HCC) 04/02/2025 Telephone [facility] Transplant Heart [address] [place] [address] Mailstop [phone] [place] [address] Katerina Romero RN 04/02/2025 Orders Only [facility] Transplant Heart [address] [place] [address] 340 Mailstop [phone] [place] [address] Katerina Romero, hog grader heart failure with preserved ejection fraction (HCC) (Primary Dx) from Last 3 Months Immunizations Immunization Administration Dates Next Due Hep A, Adult 05/31/2025 Hep B Vaccine 05/31/2025 Influenza, Quadrivalent, Faustina l Culture-based MDCK, Preservative Free, Antibiotic Free, Intramuscular 08/26/2020 Influenza, Quadrivalent, Spl it, Intramuscular 09/25/2019 Influenza, Unspecified 10/27/2021,08/26/2020,03/2019 Pfizer SARS-CoV-2 Monovalent Vaccination (12+ Yrs) PONCE-READY TO USE 04/27/2022,11/24/2021 Pfizer SARS-CoV-2 Monovalent Vaccination (12+ Yrs) PURPLE 04/27/2022,11/24/2021,03/03/2021,02/10 Smallpox 12/31/2002 Tdap 05/03/2013 Yellow Fever 04/07/2005 ZOSTER Recombinant 04/06/2022,12/15/2021 Surgical History Surgery Date Site/Laterality Comments THYROIDECTOMY, PARTIAL BIOPSY THYROID COLONOSCOPY 2021 CARDIAC CATHETERIZATION 06/21/2021 - 07/21/2021 LAPAROSCOPIC CHOLECYSTECTOMY LASIK CARDIAC CATHETERIZATION 04/08/2025 N/A Procedure: RIGHT HEART CATHETERIZATION [id number]; Surgeon: Jessica Snow MD PhD; Location: [facility] CARDIAC ELEVATOR SUPERVISOR; Service: Cardiovascular; Laterality: N/A; HF slot 1, follows with Dr. Lawrence at the [facility], pt to be amditted for heart transplant evaluation s/p RHC CARDIAC CATHETERIZATION 04/16/2025 Neck/N/A Procedure: RIGHT HEART CATHETERIZATION [id number] with leave-in [place]; Surgeon: Felicitas Rodgers DO; Location: [facility] CARDIAC ELEVATOR SUPERVISOR; Service: Cardiovascular; Laterality: N/A; with leave-in [facility] CARDIAC CATHETERIZATION 05/02/2025 N/A Procedure: RIGHT HEART CATHETERIZATION [id number]; Surgeon: Felicitas Rodgers DO; Location: [facility] CARDIAC ELEVATOR SUPERVISOR; Service: Cardiovascular; Laterality: N/A; with leave in Pulmonary artery catheter CARDIAC CATHETERIZATION 05/02/2025 N/A Procedure: RIGHT HEART CATHETERIZATION CORONARY ARTERY AND GRAFT ANGIOGRAM [id number]; Surgeon: Felicitas Rodgers DO; Location: [facility] CARDIAC ELEVATOR SUPERVISOR; Service: Cardiovascular; Laterality: N/A; CARDIAC CATHETERIZATION 05/17/2025 Chest/N/A Procedure: RIGHT HEART CATHETERIZATION [id number]; Surgeon: Vannesa Gibbs MD; Location: [facility] CARDIAC ELEVATOR SUPERVISOR; Service: Cardiovascular; Laterality: N/A; replace swan for status 2 e exception HEART TRANSPLANT 05/20/2025 - 05/21/2025 Chest/N/A Procedure: TRANSPLANT HEART UNOS:[id number]; Surgeon: Addy Tapia MD; Location: [facility] OR POD 3; Service: Cardiothoracic; Laterality: N/A; Medical devices from this surgery are in the Medical Devices section. CARDIAC CATHETERIZATION 06/03/2025 N/A Procedure: ENDOMYOCARDIAL BIOPSY [id number]; Surgeon: Rodney Amos MD PhD; Location: [facility] CARDIAC ELEVATOR SUPERVISOR; Service: Cardiovascular; Laterality: N/A; CARDIAC CATHETERIZATION 06/17/2025 N/A Procedure: ENDOMYOCARDIAL BIOPSY [id number]; Surgeon: Carlos Fairbanks MD; Location: [facility] [address] CARDIAC ELEVATOR SUPERVISOR; Service: Cardiovascular; Laterality: N/A; Medical History Medical History Date Comments HTN (hypertension) Thyroid nodule GERD (gastroesophageal reflux disease) 2017 Lung nodules Abnormal cardiovascular stress test 06/2021 Tingling in extremities 06/2021 current issue Pulmonary nodule 05/2021 Chronic cough MOORE (dyspnea on exertion) Heart disease Sleep apnea Heart failure with reduced e jection fraction (HFrEF, <= 40%) and combined systolic and diastolic dysfunction (HCC) 04/08/2025 Depression Fatigue Weight loss Coronary artery disease Kidney stone 2021 Joint pain Anxiety Back pain Social History Tobacco Use Types Packs/Day Years Used Date Smoking Tobacco: Never Passive Smoke Exposure: Never Smokeless Tobacco: Never Tobacco Cessation:Counseling Given: Not Answered [facility] A and A Travel Serviceities Answer Date Recorded In the past 12 months has [employer], gas, oil, or water [employer] threatened to shut off services in your [...] often do you attend chur ch or restoration services? Never 04/10/2025 Do you belong to any clubs o r organizations such as worship groups, unions, fraternal or athletic groups, or [...] place to sleep or slept in a retirement (including now)? No 11/28/2023 PHQ-9 Answer Date [...] any time in the past 12 [facility], were you homeless or living in a retirement (including now)? No 04/10/2025 Personal Safety Answer Date Recorded Have you ever been in or are you currently in a harmful physical or emotional relationship or is someone making you feel afraid or unsafe? 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/COMMENTATOR Obstetrics History Last Filed Vital Signs Vital Sign Reading Time Taken Comments Blood Pressure 107/69 06/18/2025 12:22 PM CDT Pulse 89 06/18/2025 12:22 PM CDT Temperature 36.8 C (98.2 F) 06/17/2025 11:28 AM CDT Respiratory Rate 22 06/17/2025 1:05 PM CDT Oxygen Saturation 98% 06/18/2025 12: 22 PM CDT Inhaled Oxygen Concentration - - Weight 77.5 kg (170 lb 12.8 oz) 025 12:22 PM CDT per pt Height 182.9 cm (6') 06/18/2025 12:22 PM CDT Body Mass Index 23.16 06/18/2025 12:22 PM CDT Plan of Treatment Health Maintenance Due Date Last Done Comments Colon Cancer Screening-Colonoscopy 1964 Regular Well Visit/Exam 18-64 1982 Pneumococcal vaccine <65 (1 of 2 - PCV) 1983 DTaP/Tdap/Td Vaccine (2 - Td or Tdap) 05/03/2023 05/03/2013 Covid-19 Vaccine (2023-2 5 season) 2024 04/27/2022, 04/27/2022, 11/24/2021, Additional history exists Influenza Vaccine (#1) 2025 , 08/26/2020, 08/26/2020, Additional history exists Depression Screening 04/02/2026 04/02/2025, 04/02/20 25 Prostate Cancer Screening-PSA 04/09/2027 04/09/2025 Zoster Vaccine Completed 04/06/2022, 12/15/2021 Hepatitis B Screening Completed 05/31/2025, 025 Hepatitis C Screening Completed 06/17/2025 , 06/17/2025, 06/14/2025, Additional history exists Medical Devices Implanted Type Area Wire Photo Operator News Device Identifier Shelf Expiration Date Model / Serial / Lot [employer]dy Elin/[employer] [id number] Angio-Seal Evolution 6fr .035in Guidewire Bypass Tube Suture - [id number] Implanted:Qty: 1 on 07/13/2021 by Mart Pimentel MD at [facility] 01/18/2022 [id number] / / [id number] [employer] Sternalock 360 Sternal Closure 74-0004 - [id number] Implanted:Qty: 1 on 05/21/2025 by Soto Causey MD at [facility] N/A: Sternum [employer] 74-0004 / / [employer] Sternalock Ayden 2.4mm 12mm Self Drill Lock Sternum Cancellous 73-2412 - [id number] Implanted:Qty: 4 on 05/21/2025 by Soto Causey MD at [facility] N/A: Sternum [employer] 73-2412 / / [employer] Sternalock Ayden 2.4mm 14mm Self Drill Lock Sternum Cancellous 73-2414 - [id number] Implanted:Qty: 8 on 05/21/2025 by Soto Causey MD at [facility] N/A: Sternum [employer] 73-2414 / / [employer] Sternalock Ayden 2.4mm 18mm Self Drill Lock Sternum Cancellous 73-2418 - [id number] Implanted:Qty: 4 on 05/21/2025 by Soto Causey MD at [facility] N/A: Sternum [employer] 73-2418 / / Procedures Procedure Name Priority Date/Time Associated Diagnosis Comments CT HEAD WO CONTRAST Schedule Routine, Read Routine (OP Routine) 06/18/2025 2:11 PM CDT Heart transplanted (HCC) XR CHEST PA LATERAL 2 VIEWS Schedule Routine, Read Routine (OP Routine) 06/18/2025 12:12 PM CDT Follow-up examination following surgery DIFFERENTIAL AUTO Routine 06/17/2025 2:1 5 PM CDT 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) TACROLIMUS LEVEL, TROUGH Routine 06/17/2025 2:15 PM CDT 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) CBC WITH AUTO DIFFERENTIAL Routine 06/17/2025 2:15 PM CDT 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) TRANSTHORACIC ECHO (TTE) COMPLETE W DOPPLER/CF WO CONTRAST Routine 06/17/2025 1:30 PM CDT 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 ([facility]) ENDOMYOCARDIAL BIOPSY Routine 06/17/2025 1:07 PM CDT 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 ([facility]) SURGICAL PATHOLOGY Routine 06/17/2025 11:37 AM CDT EGFR Routine 06/17/2025 11:30 AM CDT GLUCOSE, RANDOM (OUTREACH) Routine 06/17/2025 11:30 AM CDT COMPREHENSIVE METABOLIC PANEL WITHOUT GLUCOSE (OUTREACH) Routine 06/17/2025 11:30 AM CDT TACROLIMUS LEVEL, TROUGH Routine 06/13/2025 4:45 PM CDT COMPREHENSIVE METABOLIC PANEL Routine 06/13/2025 ECG 12-LEAD STAT 06/12/2025 7:05 PM CDT POCT GLUCOSE DEVICE Routine 06/11/2025 12:04 PM CDT POCT GLUCOSE DEVICE Routine 06/11/2025 7 :46 AM CDT POTASSIUM, WHOLE BLOOD STAT 06/11/2025 5:14 AM CDT TACROLIMUS LEVEL, TROUGH Routine 06/11/2025 5:14 AM CDT POCT GLUCOSE DEVICE Routine 06/10/2025 8 :53 PM CDT ANTIBODY IDENTIFICATION Routine 06/10/2025 8:34 PM CDT EGFR Routine 06/10/2025 6:18 PM CDT MAGNESIUM Routine 06/10/2025 6:18 PM CDT TYPE AND SCREEN Timed 06/10/2025 6:18 PM CDT CBC WITHOUT DIFFERENTIAL Routine 06/10/2025 6:18 PM CDT PHOSPHORUS Routine 06/10/2025 6:18 PM CDT BASIC METABOLIC PANEL Routine 06/10/2025 6:18 PM CDT HEPATIC FUNCTION PANEL Routine 06/10/2025 6:18 PM CDT PEP THERAPY Routine 06/10/2025 6:00 PM CDT POCT GLUCOSE DEVICE Routine 06/10/2025 4 :36 PM CDT PEP THERAPY Routine 06/10/2025 1:00 PM CDT POCT GLUCOSE DEVICE Routine 06/10/2025 11:47 AM CDT PEP THERAPY Routine 06/10/2025 8:01 AM CDT POCT GLUCOSE DEVICE Routine 06/10/2025 7 :34 AM CDT POTASSIUM, WHOLE BLOOD STAT 06/10/2025 5:01 AM CDT TACROLIMUS LEVEL, TROUGH Routine 06/10/2025 4:52 AM CDT PEP THERAPY Routine 06/09/2025 10:00 PM CDT POCT GLUCOSE DEVICE Routine 06/09/2025 7 :56 PM CDT POTASSIUM, WHOLE BLOOD STAT 06/09/2025 7:55 PM CDT EGFR Routine 06/09/2025 7:49 PM CDT MAGNESIUM Routine 06/09/2025 7:49 PM CDT CBC WITHOUT DIFFERENTIAL Routine 06/09/2025 7:49 PM CDT PHOSPHORUS Routine 06/09/2025 7:49 PM CDT BASIC METABOLIC PANEL Routine 06/09/2025 7:49 PM CDT HEPATIC FUNCTION PANEL Routine 06/09/2025 7:49 PM CDT PEP THERAPY Routine 06/09/2025 6:00 PM CDT POCT GLUCOSE DEVICE Routine 06/09/2025 4 :18 PM CDT EGFR Timed 06/09/2025 2:34 PM CDT COMPREHENSIVE METABOLIC PANEL Timed 06/09/2025 2:34 PM CDT PEP THERAPY Routine 06/09/2025 1:00 PM CDT POCT GLUCOSE DEVICE Routine 06/09/2025 11:42 AM CDT PEP THERAPY Routine 06/09/2025 8:00 AM CDT POCT GLUCOSE DEVICE Routine 06/09/2025 7 :46 AM CDT POTASSIUM, WHOLE BLOOD STAT 06/09/2025 5:19 AM CDT TACROLIMUS LEVEL, TROUGH Routine 06/09/2025 5:19 AM CDT PEP THERAPY Routine 06/08/2025 10:00 PM CDT EGFR Routine 06/08/2025 8:53 PM CDT MAGNESIUM Routine 06/08/2025 8:53 PM CDT CBC WITHOUT DIFFERENTIAL Routine 06/08/2025 8:53 PM CDT PHOSPHORUS Routine 06/08/2025 8:53 PM CDT BASIC METABOLIC PANEL Routine 06/08/2025 8:53 PM CDT HEPATIC FUNCTION PANEL Routine 06/08/2025 8:53 PM CDT POCT GLUCOSE DEVICE Routine 06/08/2025 7 :57 PM CDT PEP THERAPY Routine 06/08/2025 6:00 PM CDT POCT GLUCOSE DEVICE Routine 06/08/2025 5 :15 PM CDT XR CHEST PA LATERAL 2 VIEWS IP Routine 06/08/2025 3:52 PM CDT PEP THERAPY Routine 06/08/2025 1:00 PM CDT POCT GLUCOSE DEVICE Routine 06/08/2025 12:12 PM CDT POCT GLUCOSE DEVICE Routine 06/08/2025 8 :04 AM CDT PEP THERAPY Routine 06/08/2025 8:00 AM CDT TACROLIMUS LEVEL, TROUGH Routine 06/08/2025 5:50 AM CDT ANTIBODY IDENTIFICATION Routine 06/07/2025 11:33 PM CDT PEP THERAPY Routine 06/07/2025 10:00 PM CDT EGFR Routine 06/07/2025 9:26 PM CDT MAGNESIUM Routine 06/07/2025 9:26 PM CDT TYPE AND SCREEN Timed 06/07/2025 9:26 PM CDT CBC WITHOUT DIFFERENTIAL Routine 06/07/2025 9:26 PM CDT PHOSPHORUS Routine 06/07/2025 9:26 PM CDT BASIC METABOLIC PANEL Routine 06/07/2025 9:26 PM CDT HEPATIC FUNCTION PANEL Routine 06/07/2025 9:26 PM CDT POCT GLUCOSE DEVICE Routine 06/07/2025 8 :24 PM CDT PEP THERAPY Routine 06/07/2025 6:00 PM CDT POCT GLUCOSE DEVICE Routine 06/07/2025 3 :59 PM CDT PEP THERAPY Routine 06/07/2025 1:00 PM CDT POCT GLUCOSE DEVICE Routine 06/07/2025 11:38 AM CDT PEP THERAPY Routine 06/07/2025 8:01 AM CDT POCT GLUCOSE DEVICE Routine 06/07/2025 7 :52 AM CDT POTASSIUM, WHOLE BLOOD STAT 06/07/2025 5:36 AM CDT TACROLIMUS LEVEL, TROUGH Routine 06/07/2025 5:36 AM CDT PEP THERAPY Routine 06/06/2025 10:00 PM CDT CBC WITHOUT DIFFERENTIAL STAT 06/06/2025 9:52 PM CDT POTASSIUM, WHOLE BLOOD STAT 06/06/2025 9:52 PM CDT POCT GLUCOSE DEVICE Routine 06/06/2025 8 :10 PM CDT EGFR Routine 06/06/2025 8:02 PM CDT IMMUNOGLOBULIN FREE LIGHT CHAINS Routine 06/06/2025 8:02 PM CDT G6PD QUALITATIVE WITH REFLEX TO QUANTITATIVE Routine 06/06/2025 8:02 PM CDT MAGNESIUM Routine 06/06/2025 8:02 PM CDT CBC WITHOUT DIFFERENTIAL Routine 06/06/2025 8:02 PM CDT PHOSPHORUS Routine 06/06/2025 8:02 PM CDT BASIC METABOLIC PANEL Routine 06/06/2025 8:02 PM CDT HEPATIC FUNCTION PANEL Routine 06/06/2025 8:02 PM CDT PEP THERAPY Routine 06/06/2025 6:00 PM CDT POCT GLUCOSE DEVICE Routine 06/06/2025 4 :10 PM CDT PEP THERAPY Routine 06/06/2025 1:00 PM CDT POCT GLUCOSE DEVICE Routine 06/06/2025 12:12 PM CDT PEP THERAPY Routine 06/06/2025 8:01 AM CDT POCT GLUCOSE DEVICE Routine 06/06/2025 7 :59 AM CDT POTASSIUM, WHOLE BLOOD STAT 06/06/2025 5:07 AM CDT TACROLIMUS LEVEL, TROUGH Routine 06/06/2025 5:07 AM CDT POTASSIUM, WHOLE BLOOD STAT 06/05/2025 10:09 PM CDT EGFR Routine 06/05/2025 10:02 PM CDT MAGNESIUM Routine 06/05/2025 10:02 PM CDT CBC WITHOUT DIFFERENTIAL Routine 06/05/2025 10:02 PM CDT PHOSPHORUS Routine 06/05/2025 10:02 PM CDT BASIC METABOLIC PANEL Routine 06/05/2025 10:02 PM CDT HEPATIC FUNCTION PANEL Routine 06/05/2025 10:02 PM CDT PEP THERAPY Routine 06/05/2025 10:00 PM CDT POCT GLUCOSE DEVICE Routine 06/05/2025 7 :54 PM CDT PEP THERAPY Routine 06/05/2025 6:00 PM CDT POCT GLUCOSE DEVICE Routine 06/05/2025 4 :10 PM CDT XR CHEST 1 VIEW IP Routine 06/05/2025 3:09 PM CDT POCT GLUCOSE DEVICE Routine 06/05/2025 1 :33 PM CDT PEP THERAPY Routine 06/05/2025 1:00 PM CDT TRANSTHORACIC ECHO (TTE) LIMITED/FOLLOW UP W LTD DOPPLER/CF WO CONTRAST ED Urgent/IP Urgent 06/05/2025 12:57 PM CDT PEP THERAPY Routine 06/05/2025 8:01 AM CDT POCT GLUCOSE DEVICE Routine 06/05/2025 7 :51 AM CDT POTASSIUM, WHOLE BLOOD STAT 06/05/2025 4:39 AM CDT TACROLIMUS LEVEL, TROUGH Routine 06/05/2025 4:39 AM CDT PEP THERAPY Routine 06/04/2025 10:00 PM CDT POTASSIUM, WHOLE BLOOD STAT 06/04/2025 9:24 PM CDT POCT GLUCOSE DEVICE Routine 06/04/2025 8 :57 PM CDT ANTIBODY IDENTIFICATION Routine 06/04/2025 8:01 PM CDT EGFR Routine 06/04/2025 6:51 PM CDT CRITICAL RESULT CALLBACK CHEMISTRY Routine 06/04/2025 6:51 PM CDT MAGNESIUM Routine 06/04/2025 6:51 PM CDT TYPE AND SCREEN Timed 06/04/2025 6:51 PM CDT CBC WITHOUT DIFFERENTIAL Routine 06/04/2025 6:51 PM CDT PHOSPHORUS Routine 06/04/2025 6:51 PM CDT BASIC METABOLIC PANEL Routine 06/04/2025 6:51 PM CDT HEPATIC FUNCTION PANEL Routine 06/04/2025 6:51 PM CDT PEP THERAPY Routine 06/04/2025 6:00 PM CDT POCT GLUCOSE DEVICE Routine 06/04/2025 4 :16 PM CDT PEP THERAPY Routine 06/04/2025 1:00 PM CDT POCT GLUCOSE DEVICE Routine 06/04/2025 12:15 PM CDT PEP THERAPY Routine 06/04/2025 8:01 AM CDT POCT GLUCOSE DEVICE Routine 06/04/2025 7 :37 AM CDT POTASSIUM, WHOLE BLOOD STAT 06/04/2025 5:16 AM CDT TACROLIMUS LEVEL, TROUGH Routine 06/04/2025 5:16 AM CDT POTASSIUM, WHOLE BLOOD STAT 06/03/2025 10:35 PM CDT PEP THERAPY Routine 06/03/2025 10:00 PM CDT EGFR Routine 06/03/2025 8:29 PM CDT MAGNESIUM Routine 06/03/2025 8:29 PM CDT CBC WITHOUT DIFFERENTIAL Routine 06/03/2025 8:29 PM CDT PHOSPHORUS Routine 06/03/2025 8:29 PM CDT BASIC METABOLIC PANEL Routine 06/03/2025 8:29 PM CDT HEPATIC FUNCTION PANEL Routine 06/03/2025 8:29 PM CDT POCT GLUCOSE DEVICE Routine 06/03/2025 7 :49 PM CDT PEP THERAPY Routine 06/03/2025 6:00 PM CDT POCT GLUCOSE DEVICE Routine 06/03/2025 5 :09 PM CDT PEP THERAPY Routine 06/03/2025 1:00 PM CDT POCT GLUCOSE DEVICE Routine 06/03/2025 10:46 AM CDT TRANSTHORACIC ECHO (TTE) LIMITED/FOLLOW UP W LTD DOPPLER/CF WO CONTRAST Routine 06/03/2025 10:11 AM CDT POCT GLUCOSE DEVICE Routine 06/03/2025 9 :46 AM CDT ENDOMYOCARDIAL BIOPSY Routine 06/03/2025 9:12 AM CDT Heart transplanted (HCC) PEP THERAPY Routine 06/03/2025 8:01 AM CDT SURGICAL PATHOLOGY Routine 06/03/2025 7: 58 AM CDT Heart transplanted (HCC) POCT GLUCOSE DEVICE Routine 06/03/2025 6 :59 AM CDT POTASSIUM, WHOLE BLOOD STAT 06/03/2025 6:26 AM CDT OXYHEMOGLOBIN, CENTRAL VENOUS STAT 06/03/2025 5:24 AM CDT TACROLIMUS LEVEL, TROUGH Routine 06/03/2025 5:17 AM CDT PEP THERAPY Routine 06/02/2025 10:00 PM CDT POCT GLUCOSE DEVICE Routine 06/02/2025 8 :28 PM CDT EGFR Routine 06/02/2025 8:22 PM CDT MAGNESIUM Routine 06/02/2025 8:22 PM CDT CBC WITHOUT DIFFERENTIAL Routine 06/02/2025 8:22 PM CDT PHOSPHORUS Routine 06/02/2025 8:22 PM CDT BASIC METABOLIC PANEL Routine 06/02/2025 8:22 PM CDT HEPATIC FUNCTION PANEL Routine 06/02/2025 8:22 PM CDT PEP THERAPY Routine 06/02/2025 6:00 PM CDT POCT GLUCOSE DEVICE Routine 06/02/2025 3 :35 PM CDT PEP THERAPY Routine 06/02/2025 1:00 PM CDT POCT GLUCOSE DEVICE Routine 06/02/2025 11:12 AM CDT PEP THERAPY Routine 06/02/2025 8:00 AM CDT POCT GLUCOSE DEVICE Routine 06/02/2025 7 :56 AM CDT POTASSIUM, WHOLE BLOOD STAT 06/02/2025 5:05 AM CDT OXYHEMOGLOBIN, CENTRAL VENOUS STAT 06/02/2025 5:05 AM CDT TACROLIMUS LEVEL, TROUGH Routine 06/02/2025 5:05 AM CDT ANTIBODY IDENTIFICATION Routine 06/01/2025 10:08 PM CDT PEP THERAPY Routine 06/01/2025 10:00 PM CDT XR CHEST 1 VIEW Timed 06/01/2025 9:26 PM CDT EGFR Routine 06/01/2025 8:20 PM CDT MAGNESIUM Routine 06/01/2025 8:20 PM CDT TYPE AND SCREEN Timed 06/01/2025 8:20 PM CDT CBC WITHOUT DIFFERENTIAL Routine 06/01/2025 8:20 PM CDT PHOSPHORUS Routine 06/01/2025 8:20 PM CDT BASIC METABOLIC PANEL Routine 06/01/2025 8:20 PM CDT HEPATIC FUNCTION PANEL Routine 06/01/2025 8:20 PM CDT POCT GLUCOSE DEVICE Routine 06/01/2025 7 :56 PM CDT PEP THERAPY Routine 06/01/2025 6:00 PM CDT POCT GLUCOSE DEVICE Routine 06/01/2025 4 :58 PM CDT XR ABDOMEN AP 1 VIEW ED Urgent/IP Urgent 06/01/2025 3:15 PM CDT PEP THERAPY Routine 06/01/2025 1:00 PM CDT POCT GLUCOSE DEVICE Routine 06/01/2025 10:52 AM CDT POCT GLUCOSE DEVICE Routine 06/01/2025 8 :09 AM CDT PEP THERAPY Routine 06/01/2025 8:00 AM CDT POCT GLUCOSE DEVICE Routine 06/01/2025 5 :18 AM CDT TACROLIMUS LEVEL, TROUGH Routine 06/01/2025 5:16 AM CDT PEP THERAPY Routine 05/31/2025 10:00 PM CDT EGFR Routine 05/31/2025 9:47 PM CDT MAGNESIUM Routine 05/31/2025 9:47 PM CDT CBC WITHOUT DIFFERENTIAL Routine 05/31/2025 9:47 PM CDT PHOSPHORUS Routine 05/31/2025 9:47 PM CDT BASIC METABOLIC PANEL Routine 05/31/2025 9:47 PM CDT HEPATIC FUNCTION PANEL Routine 05/31/2025 9:47 PM CDT XR CHEST 1 VIEW Timed 05/31/2025 8:58 PM CDT POCT GLUCOSE DEVICE Routine 05/31/2025 8 :49 PM CDT PEP THERAPY Routine 05/31/2025 6:00 PM CDT POCT GLUCOSE DEVICE Routine 05/31/2025 3 :58 PM CDT PEP THERAPY Routine 05/31/2025 1:00 PM CDT POCT GLUCOSE DEVICE Routine 05/31/2025 11:47 AM CDT PEP THERAPY Routine 05/31/2025 8:01 AM CDT POCT GLUCOSE DEVICE Routine 05/31/2025 7 :45 AM CDT TACROLIMUS LEVEL, TROUGH Routine 05/31/2025 4:18 AM CDT XR CHEST 1 VIEW Timed 05/30/2025 10:18 PM CDT PEP THERAPY Routine 05/30/2025 10:00 PM CDT POTASSIUM, WHOLE BLOOD STAT 05/30/2025 8:30 PM CDT OXYHEMOGLOBIN, CENTRAL VENOUS Routine 05/30/2025 8:30 PM CDT EGFR Routine 05/30/2025 8:23 PM CDT MAGNESIUM Routine 05/30/2025 8:23 PM CDT CBC WITHOUT DIFFERENTIAL Routine 05/30/2025 8:23 PM CDT PHOSPHORUS Routine 05/30/2025 8:23 PM CDT BASIC METABOLIC PANEL Routine 05/30/2025 8:23 PM CDT HEPATIC FUNCTION PANEL Routine 05/30/2025 8:23 PM CDT POCT GLUCOSE DEVICE Routine 05/30/2025 8 :05 PM CDT PEP THERAPY Routine 05/30/2025 6:00 PM CDT POCT GLUCOSE DEVICE Routine 05/30/2025 4 :44 PM CDT PEP THERAPY Routine 05/30/2025 1:00 PM CDT POCT GLUCOSE DEVICE Routine 05/30/2025 11:41 AM CDT PEP THERAPY Routine 05/30/2025 8:01 AM CDT POCT GLUCOSE DEVICE Routine 05/30/2025 7 :35 AM CDT TACROLIMUS LEVEL, TROUGH Routine 05/30/2025 5:28 AM CDT ANTIBODY IDENTIFICATION Routine 05/29/2025 10:52 PM CDT PEP THERAPY Routine 05/29/2025 10:00 PM CDT EGFR Routine 05/29/2025 8:49 PM CDT TYPE AND SCREEN Timed 05/29/2025 8:49 PM CDT CBC WITHOUT DIFFERENTIAL Routine 05/29/2025 8:49 PM CDT PHOSPHORUS Routine 05/29/2025 8:49 PM CDT MAGNESIUM Routine 05/29/2025 8:49 PM CDT BASIC METABOLIC PANEL Routine 05/29/2025 8:49 PM CDT HEPATIC FUNCTION PANEL Routine 05/29/2025 8:49 PM CDT POCT GLUCOSE DEVICE Routine 05/29/2025 8 :13 PM CDT XR CHEST 1 VIEW Timed 05/29/2025 7:49 PM CDT PEP THERAPY Routine 05/29/2025 6:00 PM CDT POCT GLUCOSE DEVICE Routine 05/29/2025 5 :06 PM CDT POTASSIUM, WHOLE BLOOD STAT 05/29/2025 2:32 PM CDT PEP THERAPY Routine 05/29/2025 1:00 PM CDT POCT GLUCOSE DEVICE Routine 05/29/2025 11:27 AM CDT PEP THERAPY Routine 05/29/2025 8:01 AM CDT EGFR Timed 05/29/2025 7:31 AM CDT BASIC METABOLIC PANEL Timed 05/29/2025 7:31 AM CDT POCT GLUCOSE DEVICE Routine 05/29/2025 7 :28 AM CDT TACROLIMUS LEVEL, TROUGH Routine 05/29/2025 5:24 AM CDT BASIC METABOLIC PANEL Routine 05/28/2025 11:51 PM CDT EGFR Routine 05/28/2025 11:51 PM CDT POTASSIUM, WHOLE BLOOD Routine 05/28/2025 11:51 PM CDT PHOSPHORUS Routine 05/28/2025 11:51 PM CDT MAGNESIUM Routine 05/28/2025 11:51 PM CDT CBC WITHOUT DIFFERENTIAL Routine 05/28/2025 11:51 PM CDT HEPATIC FUNCTION PANEL Routine 05/28/2025 11:51 PM CDT POCT GLUCOSE DEVICE Routine 05/28/2025 11:45 PM CDT ECG 12-LEAD STAT 05/28/2025 11:29 PM CDT PEP THERAPY Routine 05/28/2025 10:00 PM CDT POCT GLUCOSE DEVICE Routine 05/28/2025 8 :08 PM CDT XR CHEST 1 VIEW Timed 05/28/2025 8:06 PM CDT PEP THERAPY Routine 05/28/2025 6:00 PM CDT EGFR Timed 05/28/2025 4:14 PM CDT POTASSIUM, WHOLE BLOOD STAT 05/28/2025 4:14 PM CDT BASIC METABOLIC PANEL Timed 05/28/2025 4:14 PM CDT POCT GLUCOSE DEVICE Routine 05/28/2025 4 :13 PM CDT PEP THERAPY Routine 05/28/2025 1:00 PM CDT SHREDDING SPECIALIST EVALUATE AND TREAT STAT 05/28/2025 12:22 PM CDT POCT GLUCOSE DEVICE Routine 05/28/2025 11:08 AM CDT EGFR Timed 05/28/2025 9:58 AM CDT BASIC METABOLIC PANEL Timed 05/28/2025 9:58 AM CDT TACROLIMUS LEVEL, TROUGH Timed 05/28/2025 8:30 AM CDT PEP THERAPY Routine 05/28/2025 8:01 AM CDT POCT GLUCOSE DEVICE Routine 05/28/2025 7 :44 AM CDT POCT GLUCOSE DEVICE Routine 05/28/2025 4 :16 AM CDT POTASSIUM, WHOLE BLOOD Routine 05/28/2025 2:01 AM CDT PHOSPHORUS Routine 05/28/2025 2:01 AM CDT MAGNESIUM Routine 05/28/2025 2:01 AM CDT CBC WITHOUT DIFFERENTIAL Routine 05/28/2025 2:01 AM CDT TACROLIMUS LEVEL, TROUGH Routine 05/28/2025 2:01 AM CDT HEPATIC FUNCTION PANEL Routine 05/28/2025 2:01 AM CDT EGFR Timed 05/27/2025 11:43 PM CDT BASIC METABOLIC PANEL Timed 05/27/2025 11:43 PM CDT POCT GLUCOSE DEVICE Routine 05/27/2025 11:00 PM CDT PEP THERAPY Routine 05/27/2025 10:00 PM CDT XR CHEST 1 VIEW Timed 05/27/2025 8:57 PM CDT POCT GLUCOSE DEVICE Routine 05/27/2025 7 :49 PM CDT PEP THERAPY Routine 05/27/2025 6:00 PM CDT POCT GLUCOSE DEVICE Routine 05/27/2025 5 :26 PM CDT EGFR Timed 05/27/2025 5:21 PM CDT BASIC METABOLIC PANEL Timed 05/27/2025 5:21 PM CDT PEP THERAPY Routine 05/27/2025 1:00 PM CDT POCT GLUCOSE DEVICE Routine 05/27/2025 12:03 PM CDT EGFR Timed 05/27/2025 9:55 AM CDT BASIC METABOLIC PANEL Timed 05/27/2025 9:55 AM CDT PEP THERAPY Routine 05/27/2025 8:01 AM CDT POCT GLUCOSE DEVICE Routine 05/27/2025 7 :36 AM CDT HEMOGLOBIN TOTAL, PULMONARY ARTERY STAT 05/27/2025 4:34 AM CDT POTASSIUM, WHOLE BLOOD STAT 05/27/2025 4:34 AM CDT OXYHEMOGLOBIN, PULMONARY ARTERY STAT 05/27/2025 4:34 AM CDT BLOOD GAS, ARTERIAL STAT 05/27/2025 4 :34 AM CDT LACTATE, WHOLE BLOOD STAT 05/27/2025 4:34 AM CDT TACROLIMUS LEVEL, TROUGH Routine 05/27/2025 4:34 AM CDT POCT GLUCOSE DEVICE Routine 05/27/2025 3 :24 AM CDT ANTIBODY IDENTIFICATION Routine 05/27/2025 1:49 AM CDT POCT GLUCOSE DEVICE Routine 05/26/2025 11:58 PM CDT BASIC METABOLIC PANEL Routine 05/26/2025 11:53 PM CDT EGFR Routine 05/26/2025 11:53 PM CDT POTASSIUM, WHOLE BLOOD Routine 05/26/2025 11:53 PM CDT PHOSPHORUS Routine 05/26/2025 11:53 PM CDT MAGNESIUM Routine 05/26/2025 11:53 PM CDT CBC WITHOUT DIFFERENTIAL Routine 05/26/2025 11:53 PM CDT HEPATIC FUNCTION PANEL Routine 05/26/2025 11:53 PM CDT TYPE AND SCREEN Timed 05/26/2025 11:53 PM CDT PEP THERAPY Routine 05/26/2025 10:00 PM CDT POCT GLUCOSE DEVICE Routine 05/26/2025 7 :51 PM CDT XR CHEST 1 VIEW Timed 05/26/2025 6:43 PM CDT PEP THERAPY Routine 05/26/2025 6:00 PM CDT EGFR Timed 05/26/2025 3:52 PM CDT POTASSIUM, WHOLE BLOOD STAT 05/26/2025 3:52 PM CDT BASIC METABOLIC PANEL Timed 05/26/2025 3:52 PM CDT POCT GLUCOSE DEVICE Routine 05/26/2025 3 :50 PM CDT HEMOGLOBIN TOTAL, PULMONARY ARTERY STAT 05/26/2025 2:22 PM CDT OXYHEMOGLOBIN, PULMONARY ARTERY STAT 05/26/2025 2:22 PM CDT BLOOD GAS, ARTERIAL STAT 05/26/2025 2 :22 PM CDT PEP THERAPY Routine 05/26/2025 1:00 PM CDT HEMOGLOBIN TOTAL, PULMONARY ARTERY STAT 05/26/2025 12:39 PM CDT OXYHEMOGLOBIN, PULMONARY ARTERY STAT 05/26/2025 12:39 PM CDT BLOOD GAS, ARTERIAL STAT 05/26/2025 12:39 PM CDT POTASSIUM, WHOLE BLOOD STAT 05/26/2025 12:39 PM CDT POCT GLUCOSE DEVICE Routine 05/26/2025 12:30 PM CDT POCT GLUCOSE DEVICE Routine 05/26/2025 9 :03 AM CDT EGFR Timed 05/26/2025 9:03 AM CDT BASIC METABOLIC PANEL Timed 05/26/2025 9:03 AM CDT PEP THERAPY Routine 05/26/2025 8:00 AM CDT POCT GLUCOSE DEVICE Routine 05/26/2025 7 :38 AM CDT POCT GLUCOSE DEVICE Routine 05/26/2025 7 :06 AM CDT POCT GLUCOSE DEVICE Routine 05/26/2025 6 :06 AM CDT POCT GLUCOSE DEVICE Routine 05/26/2025 5 :06 AM CDT TACROLIMUS LEVEL, TROUGH Routine 05/26/2025 5:04 AM CDT POTASSIUM, WHOLE BLOOD STAT 05/26/2025 4:04 AM CDT POCT GLUCOSE DEVICE Routine 05/26/2025 4 :02 AM CDT POCT GLUCOSE DEVICE Routine 05/26/2025 3 :11 AM CDT POCT GLUCOSE DEVICE Routine 05/26/2025 2 :10 AM CDT POCT GLUCOSE DEVICE Routine 05/26/2025 1 :05 AM CDT BASIC METABOLIC PANEL Routine 05/26/2025 12:04 AM CDT EGFR Routine 05/26/2025 12:04 AM CDT OXYHEMOGLOBIN, PULMONARY ARTERY STAT 05/26/2025 12:04 AM CDT OXYHEMOGLOBIN, CENTRAL VENOUS STAT 05/26/2025 12:04 AM CDT BLOOD GAS, ARTERIAL STAT 05/26/2025 12:04 AM CDT LACTATE, WHOLE BLOOD STAT 05/26/2025 12:04 AM CDT POTASSIUM, WHOLE BLOOD Routine 05/26/2025 12:04 AM CDT PHOSPHORUS Routine 05/26/2025 12:04 AM CDT MAGNESIUM Routine 05/26/2025 12:04 AM CDT CBC WITHOUT DIFFERENTIAL Routine 05/26/2025 12:04 AM CDT HEPATIC FUNCTION PANEL Routine 05/26/2025 12:04 AM CDT POCT GLUCOSE DEVICE Routine 05/25/2025 11:59 PM CDT XR ABDOMEN AP 1 VIEW IP Routine 05/25/2025 10:51 PM CDT POCT GLUCOSE DEVICE Routine 05/25/2025 10:16 PM CDT PEP THERAPY Routine 05/25/2025 10:00 PM CDT POCT GLUCOSE DEVICE Routine 05/25/2025 8 :46 PM CDT XR CHEST 1 VIEW Timed 05/25/2025 8:10 PM CDT POCT GLUCOSE DEVICE Routine 05/25/2025 8 :09 PM CDT POTASSIUM, WHOLE BLOOD STAT 05/25/2025 8:08 PM CDT POCT GLUCOSE DEVICE Routine 05/25/2025 7 :01 PM CDT POCT GLUCOSE DEVICE Routine 05/25/2025 6 :20 PM CDT PEP THERAPY Routine 05/25/2025 6:00 PM CDT POCT GLUCOSE DEVICE Routine 05/25/2025 5 :18 PM CDT EGFR Timed 05/25/2025 4:37 PM CDT POTASSIUM, WHOLE BLOOD Timed 05/25/2025 4:37 PM CDT HEMOGLOBIN TOTAL, PULMONARY ARTERY Timed 05/25/2025 4:37 PM CDT BASIC METABOLIC PANEL Timed 05/25/2025 4:37 PM CDT POCT GLUCOSE DEVICE Routine 05/25/2025 4 :15 PM CDT POCT GLUCOSE DEVICE Routine 05/25/2025 3 :18 PM CDT POCT GLUCOSE DEVICE Routine 05/25/2025 2 :21 PM CDT POCT GLUCOSE DEVICE Routine 05/25/2025 1 :04 PM CDT OXYHEMOGLOBIN, PULMONARY ARTERY STAT 05/25/2025 1:02 PM CDT HEMOGLOBIN TOTAL, PULMONARY ARTERY STAT 05/25/2025 1:02 PM CDT BLOOD GAS, ARTERIAL STAT 05/25/2025 1 :02 PM CDT POTASSIUM, WHOLE BLOOD STAT 05/25/2025 1:02 PM CDT PEP THERAPY Routine 05/25/2025 1:00 PM CDT POCT GLUCOSE DEVICE Routine 05/25/2025 11:58 AM CDT POCT GLUCOSE DEVICE Routine 05/25/2025 11:10 AM CDT POCT GLUCOSE DEVICE Routine 05/25/2025 10:01 AM CDT POCT GLUCOSE DEVICE Routine 05/25/2025 9 :06 AM CDT POCT GLUCOSE DEVICE Routine 05/25/2025 8 :01 AM CDT PEP THERAPY Routine 05/25/2025 8:00 AM CDT EGFR Timed 05/25/2025 7:59 AM CDT POTASSIUM, WHOLE BLOOD STAT 05/25/2025 7:59 AM CDT BASIC METABOLIC PANEL Timed 05/25/2025 7:59 AM CDT POCT GLUCOSE DEVICE Routine 05/25/2025 6 :50 AM CDT POCT GLUCOSE DEVICE Routine 05/25/2025 5 :16 AM CDT POTASSIUM, WHOLE BLOOD STAT 05/25/2025 5:14 AM CDT TACROLIMUS LEVEL, TROUGH Routine 05/25/2025 5:06 AM CDT POCT GLUCOSE DEVICE Routine 05/25/2025 3 :46 AM CDT POCT GLUCOSE DEVICE Routine 05/25/2025 1 :55 AM CDT POCT GLUCOSE DEVICE Routine 05/25/2025 1 :04 AM CDT POCT GLUCOSE DEVICE Routine 05/25/2025 12:22 AM CDT BASIC METABOLIC PANEL Routine 05/25/2025 12:06 AM CDT EGFR Routine 05/25/2025 12:06 AM CDT LIPASE Routine 05/25/2025 12:06 AM CDT MAGNESIUM Routine 05/25/2025 12:06 AM CDT PHOSPHORUS Routine 05/25/2025 12:06 AM CDT HEMOGLOBIN TOTAL, PULMONARY ARTERY STAT 05/25/2025 12:06 AM CDT POTASSIUM, WHOLE BLOOD STAT 05/25/2025 12:06 AM CDT BLOOD GAS, ARTERIAL STAT 05/25/2025 12:06 AM CDT OXYHEMOGLOBIN, CENTRAL VENOUS STAT 05/25/2025 12:06 AM CDT OXYHEMOGLOBIN, PULMONARY ARTERY STAT 05/25/2025 12:06 AM CDT LACTATE, WHOLE BLOOD STAT 05/25/2025 12:06 AM CDT APTT STAT 05/25/2025 12:06 AM CDT CBC WITHOUT DIFFERENTIAL Routine 05/25/2025 12:06 AM CDT HEPATIC FUNCTION PANEL Routine 05/25/2025 12:06 AM CDT POC BLOOD GAS AND CHEMISTRIES, ARTERIAL Routine 05/24/2025 11:39 PM CDT POCT GLUCOSE DEVICE Routine 05/24/2025 11:[address] ABDOMEN PELVIS WO CONTRAST ED Urgent/IP Urgent 05/24/2025 11:00 PM CDT POCT GLUCOSE DEVICE Routine 05/24/2025 10:01 PM CDT PEP THERAPY Routine 05/24/2025 10:00 PM CDT POCT GLUCOSE DEVICE Routine 05/24/2025 8 :53 PM CDT XR CHEST 1 VIEW Timed 05/24/2025 7:55 PM CDT POCT GLUCOSE DEVICE Routine 05/24/2025 7 :48 PM CDT POCT GLUCOSE DEVICE Routine 05/24/2025 6 :32 PM CDT PEP THERAPY Routine 05/24/2025 6:00 PM CDT POCT GLUCOSE DEVICE Routine 05/24/2025 5 :42 PM CDT EGFR Timed 05/24/2025 3:53 PM CDT HEMOGLOBIN TOTAL, PULMONARY ARTERY Timed 05/24/2025 3:53 PM CDT BASIC METABOLIC PANEL Timed 05/24/2025 3:53 PM CDT POCT GLUCOSE DEVICE Routine 05/24/2025 3 :51 PM CDT POCT GLUCOSE DEVICE Routine 05/24/2025 2 :26 PM CDT PEP THERAPY Routine 05/24/2025 1:00 PM CDT POTASSIUM, WHOLE BLOOD STAT 05/24/2025 1:00 PM CDT OXYHEMOGLOBIN, PULMONARY ARTERY STAT 05/24/2025 1:00 PM CDT BLOOD GAS, ARTERIAL STAT 05/24/2025 1 :00 PM CDT HEMOGLOBIN TOTAL, PULMONARY ARTERY STAT 05/24/2025 1:00 PM CDT POCT GLUCOSE DEVICE Routine 05/24/2025 12:38 PM CDT POCT GLUCOSE DEVICE Routine 05/24/2025 11:13 AM CDT XR ABDOMEN ERECT AND OR DECUBITS 2 VIEWS ED Urgent/IP Urgent 05/24/2025 10:33 AM CDT POCT GLUCOSE DEVICE Routine 05/24/2025 10:25 AM CDT DIFFERENTIAL AUTO Routine 05/24/2025 10:19 AM CDT CBC WITH AUTO DIFFERENTIAL Routine 05/24/2025 10:19 AM CDT HEPATITIS C RNA, QUANTITATIVE, PCR Routine 05/24/2025 10:19 AM CDT CRITICAL CARE Routine 05/24/2025 8:33 AM CDT Acute respiratory insufficiency, postoperative Right ventricular dysfunction Ileus, postoperative (HCC) CATHERINE (acute kidney injury) POCT GLUCOSE DEVICE Routine 05/24/2025 8 :19 AM CDT PEP THERAPY Routine 05/24/2025 8:00 AM CDT POCT GLUCOSE DEVICE Routine 05/24/2025 7 :36 AM CDT EGFR Timed 05/24/2025 7:36 AM CDT BASIC METABOLIC PANEL Timed 05/24/2025 7:36 AM CDT POCT GLUCOSE DEVICE Routine 05/24/2025 6 :06 AM CDT TACROLIMUS LEVEL, TROUGH Routine 05/24/2025 6:04 AM CDT POC BLOOD GAS AND CHEMISTRIES, ARTERIAL Routine 05/24/2025 4:34 AM CDT POCT GLUCOSE DEVICE Routine 05/24/2025 2 :14 AM CDT XR ABDOMEN AP 1 VIEW ED Urgent/IP Urgent 05/24/2025 1:02 AM CDT POCT GLUCOSE DEVICE Routine 05/24/2025 12:16 AM CDT TRIGLYCERIDES Routine 05/23/2025 11:11 PM CDT BASIC METABOLIC PANEL Routine 05/23/2025 11:11 PM CDT EGFR Routine 05/23/2025 11:11 PM CDT POTASSIUM, WHOLE BLOOD STAT 05/23/2025 11:11 PM CDT OXYHEMOGLOBIN, PULMONARY ARTERY Timed 05/23/2025 11:11 PM CDT BLOOD GAS, ARTERIAL STAT 05/23/2025 11:11 PM CDT PHOSPHORUS Routine 05/23/2025 11:11 PM CDT MAGNESIUM Routine 05/23/2025 11:11 PM CDT CBC WITHOUT DIFFERENTIAL Routine 05/23/2025 11:11 PM CDT HEMOGLOBIN TOTAL, PULMONARY ARTERY Timed 05/23/2025 11:11 PM CDT HEPATIC FUNCTION PANEL Routine 05/23/2025 11:11 PM CDT ANTIBODY IDENTIFICATION Routine 05/23/2025 10:38 PM CDT POCT GLUCOSE DEVICE Routine 05/23/2025 10:35 PM CDT PEP THERAPY Routine 05/23/2025 10:00 PM CDT XR CHEST 1 VIEW Timed 05/23/2025 9:58 PM CDT POCT GLUCOSE DEVICE Routine 05/23/2025 9 :23 PM CDT POCT GLUCOSE DEVICE Routine 05/23/2025 8 :09 PM CDT LIPASE Timed 05/23/2025 8:08 PM CDT TYPE AND SCREEN Timed 05/23/2025 8:08 PM CDT XR ABDOMEN AP 1 VIEW ED Urgent/IP Urgent 05/23/2025 7:45 PM CDT POCT GLUCOSE DEVICE Routine 05/23/2025 7 :04 PM CDT POCT GLUCOSE DEVICE Routine 05/23/2025 6 :07 PM CDT POCT GLUCOSE DEVICE Routine 05/23/2025 5 :12 PM CDT EGFR Timed 05/23/2025 4:08 PM CDT OXYHEMOGLOBIN, PULMONARY ARTERY STAT 05/23/2025 4:08 PM CDT BLOOD GAS, ARTERIAL STAT 05/23/2025 4 :08 PM CDT HEMOGLOBIN TOTAL, PULMONARY ARTERY STAT 05/23/2025 4:08 PM CDT POTASSIUM, WHOLE BLOOD STAT 05/23/2025 4:08 PM CDT BASIC METABOLIC PANEL Timed 05/23/2025 4:08 PM CDT POCT GLUCOSE DEVICE Routine 05/23/2025 4 :04 PM CDT TRANSTHORACIC ECHO (TTE) COMPLETE W DOPPLER/CF W CONTRAST Routine 05/23/2025 3:20 PM CDT POCT GLUCOSE DEVICE Routine 05/23/2025 3 :03 PM CDT POCT GLUCOSE DEVICE Routine 05/23/2025 2 :17 PM CDT POCT GLUCOSE DEVICE Routine 05/23/2025 1 :04 PM CDT POTASSIUM, WHOLE BLOOD STAT 05/23/2025 12:11 PM CDT OXYHEMOGLOBIN, PULMONARY ARTERY STAT 05/23/2025 12:11 PM CDT BLOOD GAS, ARTERIAL STAT 05/23/2025 12:11 PM CDT HEMOGLOBIN TOTAL, PULMONARY ARTERY STAT 05/23/2025 12:11 PM CDT HEMOGLOBIN TOTAL, PULMONARY ARTERY Timed 05/23/2025 12:11 PM CDT POCT GLUCOSE DEVICE Routine 05/23/2025 12:05 PM CDT POCT GLUCOSE DEVICE Routine 05/23/2025 11:07 AM CDT CRITICAL CARE Routine 05/23/2025 10:21 AM CDT Acute postoperative pain Hyperglycemia S/P orthotopic heart transplant (HCC) Acute respiratory insufficiency, postoperative Right ventricular dysfunction POCT GLUCOSE DEVICE Routine 05/23/2025 10:00 AM CDT POCT GLUCOSE DEVICE Routine 05/23/2025 8 :56 AM CDT OXYHEMOGLOBIN, PULMONARY ARTERY STAT 05/23/2025 7:58 AM CDT BLOOD GAS, ARTERIAL STAT 05/23/2025 7 :58 AM CDT HEMOGLOBIN TOTAL, PULMONARY ARTERY STAT 05/23/2025 7:58 AM CDT POTASSIUM, WHOLE BLOOD STAT 05/23/2025 7:58 AM CDT POCT GLUCOSE DEVICE Routine 05/23/2025 7 :57 AM CDT POCT GLUCOSE DEVICE Routine 05/23/2025 7 :01 AM CDT TACROLIMUS LEVEL, TROUGH Routine 05/23/2025 6:42 AM CDT POCT GLUCOSE DEVICE Routine 05/23/2025 5 :56 AM CDT POCT GLUCOSE DEVICE Routine 05/23/2025 4 :13 AM CDT POCT GLUCOSE DEVICE Routine 05/23/2025 2 :51 AM CDT POCT GLUCOSE DEVICE Routine 05/23/2025 1 :57 AM CDT POCT GLUCOSE DEVICE Routine 05/23/2025 1 :14 AM CDT POCT GLUCOSE DEVICE Routine 05/23/2025 12:15 AM CDT EGFR Timed 05/23/2025 12:11 AM CDT HEMOGLOBIN TOTAL, PULMONARY ARTERY STAT 05/23/2025 12:11 AM CDT BLOOD GAS, ARTERIAL STAT 05/23/2025 12:11 AM CDT OXYHEMOGLOBIN, PULMONARY ARTERY STAT 05/23/2025 12:11 AM CDT PHOSPHORUS Routine 05/23/2025 12:11 AM CDT MAGNESIUM Routine 05/23/2025 12:11 AM CDT POTASSIUM, WHOLE BLOOD Routine 05/23/2025 12:11 AM CDT CBC WITHOUT DIFFERENTIAL Routine 05/23/2025 12:11 AM CDT HEPATIC FUNCTION PANEL Routine 05/23/2025 12:11 AM CDT BASIC METABOLIC PANEL Timed 05/23/2025 12:11 AM CDT POCT GLUCOSE DEVICE Routine 05/22/2025 11:10 PM CDT POCT GLUCOSE DEVICE Routine 05/22/2025 10:08 PM CDT PEP THERAPY Routine 05/22/2025 10:00 PM CDT POCT GLUCOSE DEVICE Routine 05/22/2025 9 :12 PM CDT XR CHEST 1 VIEW Timed 05/22/2025 8:59 PM CDT POCT GLUCOSE DEVICE Routine 05/22/2025 8 :05 PM CDT POCT GLUCOSE DEVICE Routine 05/22/2025 7 :14 PM CDT POCT GLUCOSE DEVICE Routine 05/22/2025 6 :25 PM CDT PEP THERAPY Routine 05/22/2025 6:00 PM CDT POCT GLUCOSE DEVICE Routine 05/22/2025 5 :17 PM CDT POCT GLUCOSE DEVICE Routine 05/22/2025 4 :24 PM CDT EGFR Timed 05/22/2025 4:14 PM CDT HEMOGLOBIN TOTAL, PULMONARY ARTERY Timed 05/22/2025 4:14 PM CDT BASIC METABOLIC PANEL Timed 05/22/2025 4:14 PM CDT HEPATITIS C GENOTYPE Routine 05/22/2025 4:14 PM CDT POCT GLUCOSE DEVICE Routine 05/22/2025 2 :58 PM CDT POCT GLUCOSE DEVICE Routine 05/22/2025 2 :52 PM CDT OXYHEMOGLOBIN, CENTRAL VENOUS Routine 05/22/2025 2:48 PM CDT BLOOD GAS, ARTERIAL STAT 05/22/2025 2 :48 PM CDT OXYHEMOGLOBIN, PULMONARY ARTERY STAT 05/22/2025 1:33 PM CDT OXYHEMOGLOBIN, CENTRAL VENOUS STAT 05/22/2025 1:33 PM CDT HEMOGLOBIN TOTAL, PULMONARY ARTERY STAT 05/22/2025 1:33 PM CDT PEP THERAPY Routine 05/22/2025 1:00 PM CDT CRITICAL CARE Routine 05/22/2025 12:36 PM CDT Acute postoperative pain Hyperglycemia S/P orthotopic heart transplant (HCC) Acute respiratory insufficiency, postoperative POCT GLUCOSE DEVICE Routine 05/22/2025 12:15 PM CDT POCT GLUCOSE DEVICE Routine 05/22/2025 11:16 AM CDT OXYHEMOGLOBIN, CENTRAL VENOUS Routine 05/22/2025 9:04 AM CDT HEMOGLOBIN TOTAL, PULMONARY ARTERY STAT 05/22/2025 9:04 AM CDT OXYHEMOGLOBIN, PULMONARY ARTERY Routine 05/22/2025 9:04 AM CDT POC BLOOD GAS AND CHEMISTRIES, ARTERIAL Routine 05/22/2025 8:09 AM CDT HEMOGLOBIN TOTAL, PULMONARY ARTERY STAT 05/22/2025 8:06 AM CDT PEP THERAPY Routine 05/22/2025 8:01 AM CDT POCT GLUCOSE DEVICE Routine 05/22/2025 5 :59 AM CDT TACROLIMUS LEVEL, TROUGH Routine 05/22/2025 5:27 AM CDT HEMOGLOBIN TOTAL, PULMONARY ARTERY Timed 05/22/2025 5:27 AM CDT POCT GLUCOSE DEVICE Routine 05/22/2025 5 :26 AM CDT XR CHEST 1 VIEW Timed 05/22/2025 5:13 AM CDT POCT GLUCOSE DEVICE Routine 05/22/2025 3 :05 AM CDT BLOOD GAS, ARTERIAL STAT 05/22/2025 1 :35 AM CDT POCT GLUCOSE DEVICE Routine 05/22/2025 1 :30 AM CDT POCT GLUCOSE DEVICE Routine 05/22/2025 12:26 AM CDT EGFR Timed 05/22/2025 12:21 AM CDT PHOSPHORUS Routine 05/22/2025 12:21 AM CDT MAGNESIUM Routine 05/22/2025 12:21 AM CDT POTASSIUM, WHOLE BLOOD Routine 05/22/2025 12:21 AM CDT CBC WITHOUT DIFFERENTIAL Routine 05/22/2025 12:21 AM CDT HEPATIC FUNCTION PANEL Routine 05/22/2025 12:21 AM CDT BASIC METABOLIC PANEL Timed 05/22/2025 12:21 AM CDT HEPATITIS C RNA, QUANTITATIVE, PCR Routine 05/22/2025 12:21 AM CDT POCT GLUCOSE DEVICE Routine 05/21/2025 11:11 PM CDT HEMOGLOBIN TOTAL, PULMONARY ARTERY Timed 05/21/2025 11:10 PM CDT POCT GLUCOSE DEVICE Routine 05/21/2025 10:12 PM CDT XR CHEST 1 VIEW Timed 05/21/2025 10:03 PM CDT EXTUBATION Routine 05/21/2025 9:17 PM CDT POCT GLUCOSE DEVICE Routine 05/21/2025 8 :51 PM CDT POCT GLUCOSE DEVICE Routine 05/21/2025 8 :13 PM CDT POCT GLUCOSE DEVICE Routine 05/21/2025 7 :10 PM CDT POCT GLUCOSE DEVICE Routine 05/21/2025 6 :42 PM CDT POCT GLUCOSE DEVICE Routine 05/21/2025 6 :25 PM CDT POCT GLUCOSE DEVICE Routine 05/21/2025 5 :58 PM CDT POCT GLUCOSE DEVICE Routine 05/21/2025 5 :00 PM CDT EGFR Timed 05/21/2025 4:00 PM CDT OXYHEMOGLOBIN, PULMONARY ARTERY Timed 05/21/2025 4:00 PM CDT HEMOGLOBIN TOTAL, PULMONARY ARTERY Timed 05/21/2025 4:00 PM CDT LACTATE, WHOLE BLOOD Timed 05/21/2025 4:00 PM CDT BASIC METABOLIC PANEL Timed 05/21/2025 4:00 PM CDT POCT GLUCOSE DEVICE Routine 05/21/2025 3 :54 PM CDT POCT GLUCOSE DEVICE Routine 05/21/2025 3 :04 PM CDT POCT GLUCOSE DEVICE Routine 05/21/2025 1 :50 PM CDT POCT GLUCOSE DEVICE Routine 05/21/2025 1 :03 PM CDT POCT GLUCOSE DEVICE Routine 05/21/2025 11:52 AM CDT DIFFERENTIAL AUTO Routine 05/21/2025 11:28 AM CDT CBC WITH AUTO DIFFERENTIAL Routine 05/21/2025 11:28 AM CDT CRITICAL CARE Routine 05/21/2025 10:59 AM CDT Acute postoperative pain Postoperative respiratory failure Hyperglycemia S/P orthotopic heart transplant (HCC) OXYHEMOGLOBIN, PULMONARY ARTERY Timed 05/21/2025 10:45 AM CDT HEMOGLOBIN TOTAL, PULMONARY ARTERY Timed 05/21/2025 10:45 AM CDT POCT GLUCOSE DEVICE Routine 05/21/2025 10:43 AM CDT EGFR STAT 05/21/2025 10:41 AM CDT PROTIME-INR STAT 05/21/2025 10:41 AM CDT LACTATE STAT 05/21/2025 10:41 AM CDT BASIC METABOLIC PANEL STAT 05/21/2025 10:41 AM CDT BLOOD GAS, ARTERIAL STAT 05/21/2025 10:41 AM CDT POTASSIUM, WHOLE BLOOD Routine 05/21/2025 10:41 AM CDT POC BLOOD GAS AND CHEMISTRIES, ARTERIAL Routine 05/21/2025 9:29 AM CDT XR CHEST 1 VIEW ED Urgent/IP Urgent 05/21/2025 8:27 AM CDT XR ABDOMEN AP 1 VIEW IP Routine 05/21/2025 8:27 AM CDT POCT GLUCOSE DEVICE Routine 05/21/2025 7 :45 AM CDT HLA DONOR SPECIFIC ANTIBODY REPORT 05/21/2025 7:41 AM CDT TYPE AND SCREEN Timed 05/21/2025 7:38 AM CDT APTT Routine 05/21/2025 7:38 AM CDT PROTIME-INR Routine 05/21/2025 7:38 AM CDT OXYHEMOGLOBIN, CENTRAL VENOUS Routine 05/21/2025 7:38 AM CDT OXYHEMOGLOBIN, PULMONARY ARTERY Timed 05/21/2025 7:38 AM CDT HEMOGLOBIN TOTAL, PULMONARY ARTERY Timed 05/21/2025 7:38 AM CDT TRIGLYCERIDES Timed 05/21/2025 6:44 AM CDT EGFR Timed 05/21/2025 6:44 AM CDT PHOSPHORUS Timed 05/21/2025 6:44 AM CDT MAGNESIUM Timed 05/21/2025 6:44 AM CDT HEPATIC FUNCTION PANEL Routine 05/21/2025 6:44 AM CDT CBC WITHOUT DIFFERENTIAL Routine 05/21/2025 6:44 AM CDT BASIC METABOLIC PANEL Timed 05/21/2025 6:44 AM CDT POC BLOOD GAS AND CHEMISTRIES, ARTERIAL Routine 05/21/2025 6:37 AM CDT POC BLOOD GAS AND CHEMISTRIES, ARTERIAL Routine 05/21/2025 5:18 AM CDT POCT PARTIAL THROMBOPLASTIN TIME (PTT) Routine 05/21/2025 4:17 AM CDT POCT PROTHROMBIN TIME Routine 05/21/2025 4:17 AM CDT POC BLOOD GAS AND CHEMISTRIES, ARTERIAL Routine 05/21/2025 4:17 AM CDT POCT PLATELET COUNT AND HEMATOCRIT Routine 05/21/2025 4:15 AM CDT POCT HEPARIN/ACT CPB Routine 05/21/2025 3:38 AM CDT POC BLOOD GAS AND CHEMISTRIES, ARTERIAL Routine 05/21/2025 3:36 AM CDT POCT HEPARIN/ACT CPB Routine 05/21/2025 2:49 AM CDT POC BLOOD GAS AND CHEMISTRIES, ARTERIAL Routine 05/21/2025 2:48 AM CDT POC BLOOD GAS AND CHEMISTRIES, ARTERIAL Routine 05/21/2025 2:30 AM CDT POCT HEPARIN/ACT CPB Routine 05/21/2025 2:23 AM CDT POC BLOOD GAS AND CHEMISTRIES, ARTERIAL Routine 05/21/2025 2:16 AM CDT POCT HEPARIN/ACT CPB Routine 05/21/2025 2:02 AM CDT SURGICAL PATHOLOGY Routine 05/21/2025 1: 46 AM CDT Heart failure, unspecified HF chronicity, unspecified heart failure type (HCC) POCT HEPARIN/ACT CPB Routine 05/21/2025 1:32 AM CDT POC BLOOD GAS AND CHEMISTRIES, ARTERIAL Routine 05/21/2025 1:32 AM CDT ANESTHESIA CENTRAL VENOUS LINE PLACEMENT Routine 05/21/2025 1:22 AM CDT MS AN PROCEDURE PLACEHOLDER Routine 05/21/2025 1:21 AM CDT MS AN CENTRAL LINE QUADRUPLE LUMEN Routine 05/21/2025 1:21 AM CDT ANESTHESIA ARTERIAL LINE PLACEMENT Routine 05/21/2025 1:18 AM CDT POCT HEPARIN/ACT CPB Routine 05/21/2025 1:04 AM CDT POC BLOOD GAS AND CHEMISTRIES, ARTERIAL Routine 05/21/2025 1:04 AM CDT POC BLOOD GAS AND CHEMISTRIES, ARTERIAL Routine 05/21/2025 12:48 AM CDT POCT HEPARIN/ACT CPB Routine 05/21/2025 12:44 AM CDT POC BLOOD GAS AND CHEMISTRIES, ARTERIAL Routine 05/21/2025 12:31 AM CDT POCT HEPARIN/ACT CPB Routine 05/21/2025 12:30 AM CDT POCT HEPARIN DOSE RESPONSE, CPB Routine 05/20/2025 11:48 PM CDT POC BLOOD GAS AND CHEMISTRIES, ARTERIAL Routine 05/20/2025 11:46 PM CDT MS AN PROCEDURE PLACEHOLDER Routine 05/20/2025 11:24 PM CDT MS AN PROCEDURE PLACEHOLDER Routine 05/20/2025 11:19 PM CDT MS AN ELECTIVE ENDOTRACHEAL AIRWAY Routine 05/20/2025 11:19 PM CDT TRANSPLANT HEART 05/20/2025 10:38 PM CDT Heart failure, unspecified HF chronicity, unspecified heart failure type (HCC) PEP THERAPY Routine 05/20/2025 10:00 PM CDT DIANNE ADD-ON FOR OR Routine 05/20/2025 9:1 5 PM CDT PREPARE PLASMA STAT 05/20/2025 9:12 PM CDT PREPARE RBC STAT 05/20/2025 9:12 PM CDT PEP THERAPY Routine 05/20/2025 6:00 PM CDT EGFR Timed 05/20/2025 4:24 PM CDT OXYHEMOGLOBIN, PULMONARY ARTERY Timed 05/20/2025 4:24 PM CDT HEMOGLOBIN TOTAL, PULMONARY ARTERY Timed 05/20/2025 4:24 PM CDT LACTATE, WHOLE BLOOD Timed 05/20/2025 4:24 PM CDT MAGNESIUM Timed 05/20/2025 4:24 PM CDT BASIC METABOLIC PANEL Timed 05/20/2025 4:24 PM CDT PEP THERAPY Routine 05/20/2025 1:00 PM CDT RESPIRATORY PATHOGEN PANEL STAT 05/20/2025 8:15 AM CDT PEP THERAPY Routine 05/20/2025 8:01 AM CDT EGFR Timed 05/20/2025 5:07 AM CDT LACTATE, WHOLE BLOOD Timed 05/20/2025 5:07 AM CDT OXYHEMOGLOBIN, PULMONARY ARTERY Timed 05/20/2025 5:07 AM CDT HEMOGLOBIN TOTAL, PULMONARY ARTERY Timed 05/20/2025 5:07 AM CDT MAGNESIUM Timed 05/20/2025 5:07 AM CDT HEPATIC FUNCTION PANEL Routine 05/20/2025 5:07 AM CDT CBC WITHOUT DIFFERENTIAL Routine 05/20/2025 5:07 AM CDT BASIC METABOLIC PANEL Timed 05/20/2025 5:07 AM CDT ANTIBODY IDENTIFICATION Routine 05/20/2025 3:27 AM CDT XR CHEST 1 VIEW ED Urgent/IP Urgent 05/20/2025 3:25 AM CDT URINALYSIS AND REFLEX TO MICROSCOPIC AND CULTURE STAT 05/20/2025 2:28 AM CDT HLA ANTIBODY SCREEN BY PRA Routine 05/20/2025 2:02 AM CDT HEPATITIS C RNA, QUANTITATIVE, PCR Routine 05/20/2025 2:02 AM CDT HLA CROSSMATCH REPORT 05/20/2025 2:01 AM CDT HLA ANTIBODY SCREEN - SAB (CLASS I AND CLASS II) Routine 05/20/2025 2:01 AM CDT Acute on chronic congestive heart failure, unspecified heart failure type (HCC) EGFR STAT 05/20/2025 2:01 AM CDT DIFFERENTIAL AUTO STAT 05/20/2025 2:0 1 AM CDT TYPE AND SCREEN Timed 05/20/2025 2:01 AM CDT HEMOGLOBIN A1C Routine 05/20/2025 2:01 AM CDT COMPREHENSIVE METABOLIC PANEL STAT 05/20/2025 2:01 AM CDT PROTIME-INR STAT 05/20/2025 2:01 AM CDT APTT STAT 05/20/2025 2:01 AM CDT CBC WITH AUTO DIFFERENTIAL STAT 05/20/2025 2:01 AM CDT HLA CROSSMATCH, ALLO Routine 05/20/2025 2:01 AM CDT Acute on chronic congestive heart failure, unspecified heart failure type (HCC) HLA ANTIBODY SCREEN BY PRA OR SAB PER SCHEDULE (CLASS I AND CLASS II) Routine 05/20/2025 2:01 AM CDT Acute on chronic congestive heart failure, unspecified heart failure type (HCC) PRISCILLA-LEWIS VIRUS VCA ANTIBODY PANEL STAT 05/20/2025 2:01 AM CDT HIV 1/2 ANTIBODY PLUS P24 ANTIGEN Routine 05/20/2025 2:01 AM CDT TOXOPLASMA GONDII ANTIBODY, IGG Routine 05/20/2025 2:01 AM CDT HEPATITIS C ANTIBODY Routine 05/20/2025 2:01 AM CDT HEPATITIS B CORE ANTIBODY, TOTAL Routine 05/20/2025 2:01 AM CDT HEPATITIS B CORE IGM Routine 05/20/2025 2:01 AM CDT HEPATITIS B SURFACE ANTIBODY (IMMUNE STATUS) Routine 05/20/2025 2:01 AM CDT HEPATITIS B SURFACE ANTIGEN Routine 05/20/2025 2:01 AM CDT CMV, IGG STAT 05/20/2025 2:01 AM CDT XR ABDOMEN AP 1 VIEW ED Urgent/IP Urgent 05/20/2025 1:46 AM CDT XR CHEST 1 VIEW Timed 05/20/2025 1:46 AM CDT PREPARE PLATELETS Timed 05/20/2025 1:2 3 AM CDT PREPARE RBC Timed 05/20/2025 1:23 AM CDT POTASSIUM, WHOLE BLOOD STAT 05/20/2025 12:09 AM CDT LACTATE, WHOLE BLOOD STAT 05/20/2025 12:09 AM CDT PROTIME-INR STAT 05/19/2025 11:29 PM CDT APTT STAT 05/19/2025 11:29 PM CDT PEP THERAPY Routine 05/19/2025 10:00 PM CDT EGFR Timed 05/19/2025 5:01 PM CDT OXYHEMOGLOBIN, PULMONARY ARTERY Timed 05/19/2025 5:01 PM CDT HEMOGLOBIN TOTAL, PULMONARY ARTERY Timed 05/19/2025 5:01 PM CDT LACTATE, WHOLE BLOOD Timed 05/19/2025 5:01 PM CDT MAGNESIUM Timed 05/19/2025 5:01 PM CDT BASIC METABOLIC PANEL Timed 05/19/2025 5:01 PM CDT XR CHEST 1 VIEW ED Urgent/IP Urgent 05/19/2025 3:10 PM CDT PEP THERAPY Routine 05/19/2025 1:00 PM CDT POTASSIUM, WHOLE BLOOD STAT 05/19/2025 12:48 PM CDT OXYHEMOGLOBIN, PULMONARY ARTERY Timed 05/19/2025 12:48 PM CDT HEMOGLOBIN TOTAL, PULMONARY ARTERY Timed 05/19/2025 12:48 PM CDT LACTATE, WHOLE BLOOD Timed 05/19/2025 12:48 PM CDT XR CHEST 1 VIEW ED Urgent/IP Urgent 05/19/2025 12:29 PM CDT PEP THERAPY Routine 05/19/2025 8:00 AM CDT XR CHEST 1 VIEW Timed 05/19/2025 6:23 AM CDT EGFR STAT 05/19/2025 5:09 AM CDT MAGNESIUM STAT 05/19/2025 5:09 AM CDT BASIC METABOLIC PANEL STAT 05/19/2025 5:09 AM CDT POTASSIUM, WHOLE BLOOD STAT 05/19/2025 5:03 AM CDT OXYHEMOGLOBIN, PULMONARY ARTERY Timed 05/19/2025 5:03 AM CDT HEMOGLOBIN TOTAL, PULMONARY ARTERY Timed 05/19/2025 5:03 AM CDT LACTATE, WHOLE BLOOD Timed 05/19/2025 5:03 AM CDT EGFR Timed 05/18/2025 10:41 PM CDT LACTATE, WHOLE BLOOD STAT 05/18/2025 10:41 PM CDT POTASSIUM, WHOLE BLOOD STAT 05/18/2025 10:41 PM CDT APTT STAT 05/18/2025 10:41 PM CDT PHOSPHORUS Timed 05/18/2025 10:41 PM CDT MAGNESIUM Timed 05/18/2025 10:41 PM CDT HEPATIC FUNCTION PANEL Routine 05/18/2025 10:41 PM CDT CBC WITHOUT DIFFERENTIAL Routine 05/18/2025 10:41 PM CDT BASIC METABOLIC PANEL Timed 05/18/2025 10:41 PM CDT OXYHEMOGLOBIN, PULMONARY ARTERY Timed 05/18/2025 10:41 PM CDT HEMOGLOBIN TOTAL, PULMONARY ARTERY Timed 05/18/2025 10:41 PM CDT PEP THERAPY Routine 05/18/2025 10:00 PM CDT PEP THERAPY Routine 05/18/2025 6:00 PM CDT EGFR Timed 05/18/2025 5:23 PM CDT OXYHEMOGLOBIN, PULMONARY ARTERY Timed 05/18/2025 5:23 PM CDT HEMOGLOBIN TOTAL, PULMONARY ARTERY Timed 05/18/2025 5:23 PM CDT LACTATE, WHOLE BLOOD Timed 05/18/2025 5:23 PM CDT MAGNESIUM Timed 05/18/2025 5:23 PM CDT BASIC METABOLIC PANEL Timed 05/18/2025 5:23 PM CDT POTASSIUM, WHOLE BLOOD Timed 05/18/2025 12:05 PM CDT LACTATE, WHOLE BLOOD Timed 05/18/2025 12:05 PM CDT OXYHEMOGLOBIN, PULMONARY ARTERY Timed 05/18/2025 12:05 PM CDT HEMOGLOBIN TOTAL, PULMONARY ARTERY Timed 05/18/2025 12:05 PM CDT XR CHEST 1 VIEW Timed 05/18/2025 8:40 AM CDT PEP THERAPY Routine 05/18/2025 8:00 AM CDT EGFR Timed 05/18/2025 5:59 AM CDT APTT STAT 05/18/2025 5:59 AM CDT POTASSIUM, WHOLE BLOOD STAT 05/18/2025 5:59 AM CDT OXYHEMOGLOBIN, PULMONARY ARTERY Timed 05/18/2025 5:59 AM CDT HEMOGLOBIN TOTAL, PULMONARY ARTERY Timed 05/18/2025 5:59 AM CDT LACTATE, WHOLE BLOOD Timed 05/18/2025 5:59 AM CDT MAGNESIUM Timed 05/18/2025 5:59 AM CDT HEPATIC FUNCTION PANEL Routine 05/18/2025 5:59 AM CDT CBC WITHOUT DIFFERENTIAL Routine 05/18/2025 5:59 AM CDT BASIC METABOLIC PANEL Timed 05/18/2025 5:59 AM CDT ANTIBODY IDENTIFICATION Routine 05/17/2025 11:01 PM CDT PEP THERAPY Routine 05/17/2025 10:00 PM CDT POTASSIUM, WHOLE BLOOD STAT 05/17/2025 10:00 PM CDT OXYHEMOGLOBIN, PULMONARY ARTERY Timed 05/17/2025 9:59 PM CDT HEMOGLOBIN TOTAL, PULMONARY ARTERY Timed 05/17/2025 9:59 PM CDT LACTATE, WHOLE BLOOD Timed 05/17/2025 9:59 PM CDT TYPE AND SCREEN Timed 05/17/2025 9:59 PM CDT PEP THERAPY Routine 05/17/2025 6:00 PM CDT EGFR Timed 05/17/2025 4:08 PM CDT LACTATE, WHOLE BLOOD Timed 05/17/2025 4:08 PM CDT APTT STAT 05/17/2025 4:08 PM CDT OXYHEMOGLOBIN, PULMONARY ARTERY Timed 05/17/2025 4:08 PM CDT HEMOGLOBIN TOTAL, PULMONARY ARTERY Timed 05/17/2025 4:08 PM CDT MAGNESIUM Timed 05/17/2025 4:08 PM CDT BASIC METABOLIC PANEL Timed 05/17/2025 4:08 PM CDT XR CHEST 1 VIEW ED Urgent/IP Urgent 05/17/2025 12:39 PM CDT OXYHEMOGLOBIN, PULMONARY ARTERY Timed 05/17/2025 12:34 PM CDT HEMOGLOBIN TOTAL, PULMONARY ARTERY Timed 05/17/2025 12:34 PM CDT LACTATE, WHOLE BLOOD Timed 05/17/2025 12:34 PM CDT RIGHT HEART CATH Routine 05/17/2025 10:14 AM CDT Chronic heart failure with preserved ejection fraction (HCC) POCT OXYHEMOGLOBIN - DEVICE Routine 05/17/2025 10:07 AM CDT POCT OXYHEMOGLOBIN - DEVICE Routine 05/17/2025 10:06 AM CDT XR CHEST 1 VIEW Timed 05/17/2025 5:12 AM CDT EGFR Timed 05/17/2025 3:59 AM CDT POTASSIUM, WHOLE BLOOD Timed 05/17/2025 3:59 AM CDT LACTATE, WHOLE BLOOD Timed 05/17/2025 3:59 AM CDT APTT STAT 05/17/2025 3:59 AM CDT PHOSPHORUS Timed 05/17/2025 3:59 AM CDT OXYHEMOGLOBIN, PULMONARY ARTERY Timed 05/17/2025 3:59 AM CDT HEMOGLOBIN TOTAL, PULMONARY ARTERY Timed 05/17/2025 3:59 AM CDT MAGNESIUM Timed 05/17/2025 3:59 AM CDT HEPATIC FUNCTION PANEL Routine 05/17/2025 3:59 AM CDT CBC WITHOUT DIFFERENTIAL Routine 05/17/2025 3:59 AM CDT BASIC METABOLIC PANEL Timed 05/17/2025 3:59 AM CDT PEP THERAPY Routine 05/16/2025 10:00 PM CDT MAGNESIUM STAT 05/16/2025 9:47 PM CDT POTASSIUM, WHOLE BLOOD STAT 05/16/2025 9:47 PM CDT OXYHEMOGLOBIN, PULMONARY ARTERY Timed 05/16/2025 9:47 PM CDT HEMOGLOBIN TOTAL, PULMONARY ARTERY Timed 05/16/2025 9:47 PM CDT LACTATE, WHOLE BLOOD Timed 05/16/2025 9:47 PM CDT PEP THERAPY Routine 05/16/2025 6:00 PM CDT EGFR Timed 05/16/2025 4:21 PM CDT OXYHEMOGLOBIN, PULMONARY ARTERY Timed 05/16/2025 4:21 PM CDT HEMOGLOBIN TOTAL, PULMONARY ARTERY Timed 05/16/2025 4:21 PM CDT LACTATE, WHOLE BLOOD Timed 05/16/2025 4:21 PM CDT MAGNESIUM Timed 05/16/2025 4:21 PM CDT BASIC METABOLIC PANEL Timed 05/16/2025 4:21 PM CDT PEP THERAPY Routine 05/16/2025 1:00 PM CDT APTT STAT 05/16/2025 8:10 AM CDT OXYHEMOGLOBIN, PULMONARY ARTERY Timed 05/16/2025 8:10 AM CDT HEMOGLOBIN TOTAL, PULMONARY ARTERY Timed 05/16/2025 8:10 AM CDT LACTATE, WHOLE BLOOD Timed 05/16/2025 8:10 AM CDT PEP THERAPY Routine 05/16/2025 8:01 AM CDT EGFR Timed 05/16/2025 5:07 AM CDT OXYHEMOGLOBIN, PULMONARY ARTERY Timed 05/16/2025 5:07 AM CDT HEMOGLOBIN TOTAL, PULMONARY ARTERY Timed 05/16/2025 5:07 AM CDT LACTATE, WHOLE BLOOD Timed 05/16/2025 5:07 AM CDT MAGNESIUM Timed 05/16/2025 5:07 AM CDT HEPATIC FUNCTION PANEL Routine 05/16/2025 5:07 AM CDT CBC WITHOUT DIFFERENTIAL Routine 05/16/2025 5:07 AM CDT BASIC METABOLIC PANEL Timed 05/16/2025 5:07 AM CDT XR CHEST 1 VIEW Timed 05/16/2025 4:51 AM CDT OXYHEMOGLOBIN, PULMONARY ARTERY Timed 05/15/2025 11:44 PM CDT HEMOGLOBIN TOTAL, PULMONARY ARTERY Timed 05/15/2025 11:44 PM CDT LACTATE, WHOLE BLOOD Timed 05/15/2025 11:44 PM CDT PEP THERAPY Routine 05/15/2025 10:00 PM CDT PEP THERAPY Routine 05/15/2025 6:00 PM CDT EGFR Timed 05/15/2025 5:11 PM CDT OXYHEMOGLOBIN, PULMONARY ARTERY Timed 05/15/2025 5:11 PM CDT HEMOGLOBIN TOTAL, PULMONARY ARTERY Timed 05/15/2025 5:11 PM CDT LACTATE, WHOLE BLOOD Timed 05/15/2025 5:11 PM CDT MAGNESIUM Timed 05/15/2025 5:11 PM CDT BASIC METABOLIC PANEL Timed 05/15/2025 5:11 PM CDT PEP THERAPY Routine 05/15/2025 1:00 PM CDT OXYHEMOGLOBIN, PULMONARY ARTERY Timed 05/15/2025 11:23 AM CDT HEMOGLOBIN TOTAL, PULMONARY ARTERY Timed 05/15/2025 11:23 AM CDT LACTATE, WHOLE BLOOD Timed 05/15/2025 11:23 AM CDT PEP THERAPY Routine 05/15/2025 8:01 AM CDT XR CHEST 1 VIEW Timed 05/15/2025 5:05 AM CDT APTT STAT 05/15/2025 5:03 AM CDT ERYTHROPOIETIN Routine 05/15/2025 5:03 AM CDT OXYHEMOGLOBIN, PULMONARY ARTERY Timed 05/15/2025 5:03 AM CDT HEMOGLOBIN TOTAL, PULMONARY ARTERY Timed 05/15/2025 5:03 AM CDT LACTATE, WHOLE BLOOD Timed 05/15/2025 5:03 AM CDT CBC WITHOUT DIFFERENTIAL Routine 05/15/2025 5:03 AM CDT ANTIBODY IDENTIFICATION Routine 05/14/2025 10:57 PM CDT POTASSIUM, WHOLE BLOOD Timed 05/14/2025 8:39 PM CDT OXYHEMOGLOBIN, PULMONARY ARTERY Timed 05/14/2025 8:39 PM CDT HEMOGLOBIN TOTAL, PULMONARY ARTERY Timed 05/14/2025 8:39 PM CDT LACTATE, WHOLE BLOOD Timed 05/14/2025 8:39 PM CDT TYPE AND SCREEN Timed 05/14/2025 8:39 PM CDT PEP THERAPY Routine 05/14/2025 6:00 PM CDT EGFR Timed 05/14/2025 4:01 PM CDT OXYHEMOGLOBIN, PULMONARY ARTERY Timed 05/14/2025 4:01 PM CDT HEMOGLOBIN TOTAL, PULMONARY ARTERY Timed 05/14/2025 4:01 PM CDT LACTATE, WHOLE BLOOD Timed 05/14/2025 4:01 PM CDT MAGNESIUM Timed 05/14/2025 4:01 PM CDT BASIC METABOLIC PANEL Timed 05/14/2025 4:01 PM CDT PEP THERAPY Routine 05/14/2025 1:00 PM CDT OXYHEMOGLOBIN, PULMONARY ARTERY Timed 05/14/2025 10:58 AM CDT HEMOGLOBIN TOTAL, PULMONARY ARTERY Timed 05/14/2025 10:58 AM CDT LACTATE, WHOLE BLOOD Timed 05/14/2025 10:58 AM CDT PEP THERAPY Routine 05/14/2025 8:01 AM CDT EGFR Timed 05/14/2025 5:26 AM CDT APTT STAT 05/14/2025 5:26 AM CDT MAGNESIUM Timed 05/14/2025 5:26 AM CDT HEPATIC FUNCTION PANEL Routine 05/14/2025 5:26 AM CDT CBC WITHOUT DIFFERENTIAL Routine 05/14/2025 5:26 AM CDT BASIC METABOLIC PANEL Timed 05/14/2025 5:26 AM CDT OXYHEMOGLOBIN, PULMONARY ARTERY Timed 05/14/2025 5:26 AM CDT HEMOGLOBIN TOTAL, PULMONARY ARTERY Timed 05/14/2025 5:26 AM CDT LACTATE, WHOLE BLOOD Timed 05/14/2025 5:26 AM CDT XR CHEST 1 VIEW Timed 05/14/2025 5:18 AM CDT PEP THERAPY Routine 05/13/2025 10:00 PM CDT POTASSIUM, WHOLE BLOOD Routine 05/13/2025 9:15 PM CDT OXYHEMOGLOBIN, PULMONARY ARTERY Timed 05/13/2025 9:15 PM CDT HEMOGLOBIN TOTAL, PULMONARY ARTERY Timed 05/13/2025 9:15 PM CDT LACTATE, WHOLE BLOOD Timed 05/13/2025 9:15 PM CDT PEP THERAPY Routine 05/13/2025 6:00 PM CDT EGFR Timed 05/13/2025 4:34 PM CDT OXYHEMOGLOBIN, PULMONARY ARTERY Timed 05/13/2025 4:34 PM CDT HEMOGLOBIN TOTAL, PULMONARY ARTERY Timed 05/13/2025 4:34 PM CDT LACTATE, WHOLE BLOOD Timed 05/13/2025 4:34 PM CDT MAGNESIUM Timed 05/13/2025 4:34 PM CDT BASIC METABOLIC PANEL Timed 05/13/2025 4:34 PM CDT PEP THERAPY Routine 05/13/2025 1:00 PM CDT MAGNESIUM STAT 05/13/2025 11:24 AM CDT POTASSIUM, WHOLE BLOOD STAT 05/13/2025 11:24 AM CDT OXYHEMOGLOBIN, PULMONARY ARTERY Timed 05/13/2025 11:17 AM CDT HEMOGLOBIN TOTAL, PULMONARY ARTERY Timed 05/13/2025 11:17 AM CDT LACTATE, WHOLE BLOOD Timed 05/13/2025 11:17 AM CDT PEP THERAPY Routine 05/13/2025 8:01 AM CDT XR CHEST 1 VIEW Timed 05/13/2025 6:26 AM CDT EGFR Timed 05/13/2025 5:46 AM CDT LACTATE, WHOLE BLOOD Timed 05/13/2025 5:46 AM CDT APTT STAT 05/13/2025 5:46 AM CDT PHOSPHORUS Timed 05/13/2025 5:46 AM CDT OXYHEMOGLOBIN, PULMONARY ARTERY Timed 05/13/2025 5:46 AM CDT HEMOGLOBIN TOTAL, PULMONARY ARTERY Timed 05/13/2025 5:46 AM CDT MAGNESIUM Timed 05/13/2025 5:46 AM CDT HEPATIC FUNCTION PANEL Routine 05/13/2025 5:46 AM CDT CBC WITHOUT DIFFERENTIAL Routine 05/13/2025 5:46 AM CDT BASIC METABOLIC PANEL Timed 05/13/2025 5:46 AM CDT PEP THERAPY Routine 05/12/2025 10:00 PM CDT PEP THERAPY Routine 05/12/2025 6:00 PM CDT EGFR Timed 05/12/2025 4:25 PM CDT OXYHEMOGLOBIN, PULMONARY ARTERY Timed 05/12/2025 4:25 PM CDT HEMOGLOBIN TOTAL, PULMONARY ARTERY Timed 05/12/2025 4:25 PM CDT LACTATE, WHOLE BLOOD Timed 05/12/2025 4:25 PM CDT MAGNESIUM Timed 05/12/2025 4:25 PM CDT BASIC METABOLIC PANEL Timed 05/12/2025 4:25 PM CDT PEP THERAPY Routine 05/12/2025 1:00 PM CDT OXYHEMOGLOBIN, PULMONARY ARTERY Timed 05/12/2025 10:26 AM CDT HEMOGLOBIN TOTAL, PULMONARY ARTERY Timed 05/12/2025 10:26 AM CDT LACTATE, WHOLE BLOOD Timed 05/12/2025 10:26 AM CDT PEP THERAPY Routine 05/12/2025 8:00 AM CDT ANTIBODY IDENTIFICATION Routine 05/12/2025 5:45 AM CDT XR CHEST 1 VIEW Timed 05/12/2025 5:42 AM CDT TYPE AND SCREEN Timed 05/12/2025 4:19 AM CDT APTT STAT 05/12/2025 4:17 AM CDT EGFR Timed 05/12/2025 4:16 AM CDT OXYHEMOGLOBIN, PULMONARY ARTERY Timed 05/12/2025 4:16 AM CDT HEMOGLOBIN TOTAL, PULMONARY ARTERY Timed 05/12/2025 4:16 AM CDT MAGNESIUM Timed 05/12/2025 4:16 AM CDT HEPATIC FUNCTION PANEL Routine 05/12/2025 4:16 AM CDT CBC WITHOUT DIFFERENTIAL Routine 05/12/2025 4:16 AM CDT BASIC METABOLIC PANEL Timed 05/12/2025 4:16 AM CDT PEP THERAPY Routine 05/11/2025 10:00 PM CDT PEP THERAPY Routine 05/11/2025 6:00 PM CDT EGFR Timed 05/11/2025 4:20 PM CDT POTASSIUM, WHOLE BLOOD STAT 05/11/2025 4:20 PM CDT OXYHEMOGLOBIN, PULMONARY ARTERY Timed 05/11/2025 4:20 PM CDT HEMOGLOBIN TOTAL, PULMONARY ARTERY Timed 05/11/2025 4:20 PM CDT LACTATE, WHOLE BLOOD Timed 05/11/2025 4:20 PM CDT MAGNESIUM Timed 05/11/2025 4:20 PM CDT BASIC METABOLIC PANEL Timed 05/11/2025 4:20 PM CDT PEP THERAPY Routine 05/11/2025 1:00 PM CDT APTT STAT 05/11/2025 10:12 AM CDT OXYHEMOGLOBIN, PULMONARY ARTERY Timed 05/11/2025 10:12 AM CDT HEMOGLOBIN TOTAL, PULMONARY ARTERY Timed 05/11/2025 10:12 AM CDT LACTATE, WHOLE BLOOD Timed 05/11/2025 10:12 AM CDT APTT STAT 05/11/2025 8:20 AM CDT PEP THERAPY Routine 05/11/2025 8:00 AM CDT XR CHEST 1 VIEW Timed 05/11/2025 5:34 AM CDT EGFR Timed 05/11/2025 5:00 AM CDT PHOSPHORUS Timed 05/11/2025 5:00 AM CDT MAGNESIUM Timed 05/11/2025 5:00 AM CDT HEPATIC FUNCTION PANEL Routine 05/11/2025 5:00 AM CDT CBC WITHOUT DIFFERENTIAL Routine 05/11/2025 5:00 AM CDT BASIC METABOLIC PANEL Timed 05/11/2025 5:00 AM CDT OXYHEMOGLOBIN, PULMONARY ARTERY Timed 05/11/2025 4:47 AM CDT HEMOGLOBIN TOTAL, PULMONARY ARTERY Timed 05/11/2025 4:47 AM CDT LACTATE, WHOLE BLOOD Timed 05/11/2025 4:47 AM CDT APTT STAT 05/11/2025 3:46 AM CDT PEP THERAPY Routine 05/10/2025 6:00 PM CDT EGFR Timed 05/10/2025 5:40 PM CDT OXYHEMOGLOBIN, PULMONARY ARTERY Timed 05/10/2025 5:40 PM CDT HEMOGLOBIN TOTAL, PULMONARY ARTERY Timed 05/10/2025 5:40 PM CDT LACTATE, WHOLE BLOOD Timed 05/10/2025 5:40 PM CDT MAGNESIUM Timed 05/10/2025 5:40 PM CDT BASIC METABOLIC PANEL Timed 05/10/2025 5:40 PM CDT PEP THERAPY Routine 05/10/2025 1:00 PM CDT OXYHEMOGLOBIN, PULMONARY ARTERY Timed 05/10/2025 12:30 PM CDT HEMOGLOBIN TOTAL, PULMONARY ARTERY Timed 05/10/2025 12:30 PM CDT LACTATE, WHOLE BLOOD Timed 05/10/2025 12:30 PM CDT PEP THERAPY Routine 05/10/2025 8:01 AM CDT XR CHEST 1 VIEW Timed 05/10/2025 7:02 AM CDT EGFR Timed 05/10/2025 4:34 AM CDT APTT STAT 05/10/2025 4:34 AM CDT OXYHEMOGLOBIN, PULMONARY ARTERY Timed 05/10/2025 4:34 AM CDT HEMOGLOBIN TOTAL, PULMONARY ARTERY Timed 05/10/2025 4:34 AM CDT LACTATE, WHOLE BLOOD Timed 05/10/2025 4:34 AM CDT MAGNESIUM Timed 05/10/2025 4:34 AM CDT HEPATIC FUNCTION PANEL Routine 05/10/2025 4:34 AM CDT CBC WITHOUT DIFFERENTIAL Routine 05/10/2025 4:34 AM CDT BASIC METABOLIC PANEL Timed 05/10/2025 4:34 AM CDT PEP THERAPY Routine 05/09/2025 10:00 PM CDT OXYHEMOGLOBIN, PULMONARY ARTERY Timed 05/09/2025 8:55 PM CDT HEMOGLOBIN TOTAL, PULMONARY ARTERY Timed 05/09/2025 8:55 PM CDT LACTATE, WHOLE BLOOD Timed 05/09/2025 8:55 PM CDT PEP THERAPY Routine 05/09/2025 6:00 PM CDT EGFR Timed 05/09/2025 5:04 PM CDT OXYHEMOGLOBIN, PULMONARY ARTERY Timed 05/09/2025 5:04 PM CDT HEMOGLOBIN TOTAL, PULMONARY ARTERY Timed 05/09/2025 5:04 PM CDT LACTATE, WHOLE BLOOD Timed 05/09/2025 5:04 PM CDT MAGNESIUM Timed 05/09/2025 5:04 PM CDT BASIC METABOLIC PANEL Timed 05/09/2025 5:04 PM CDT PEP THERAPY Routine 05/09/2025 1:00 PM CDT XR CHEST 1 VIEW Timed 05/09/2025 5:25 AM CDT EGFR Timed 05/09/2025 5:22 AM CDT APTT STAT 05/09/2025 5:22 AM CDT OXYHEMOGLOBIN, PULMONARY ARTERY Timed 05/09/2025 5:22 AM CDT HEMOGLOBIN TOTAL, PULMONARY ARTERY Timed 05/09/2025 5:22 AM CDT LACTATE, WHOLE BLOOD Timed 05/09/2025 5:22 AM CDT PHOSPHORUS Timed 05/09/2025 5:22 AM CDT MAGNESIUM Timed 05/09/2025 5:22 AM CDT HEPATIC FUNCTION PANEL Routine 05/09/2025 5:22 AM CDT CBC WITHOUT DIFFERENTIAL Routine 05/09/2025 5:22 AM CDT BASIC METABOLIC PANEL Timed 05/09/2025 5:22 AM CDT OXYHEMOGLOBIN, PULMONARY ARTERY Timed 05/09/2025 12:00 AM CDT HEMOGLOBIN TOTAL, PULMONARY ARTERY Timed 05/09/2025 12:00 AM CDT LACTATE, WHOLE BLOOD Timed 05/09/2025 12:00 AM CDT PEP THERAPY Routine 05/08/2025 10:00 PM CDT PEP THERAPY Routine 05/08/2025 6:00 PM CDT ANTIBODY IDENTIFICATION Routine 05/08/2025 5:38 PM CDT EGFR Timed 05/08/2025 4:22 PM CDT TYPE AND SCREEN Timed 05/08/2025 4:22 PM CDT OXYHEMOGLOBIN, PULMONARY ARTERY Timed 05/08/2025 4:22 PM CDT HEMOGLOBIN TOTAL, PULMONARY ARTERY Timed 05/08/2025 4:22 PM CDT LACTATE, WHOLE BLOOD Timed 05/08/2025 4:22 PM CDT PHOSPHORUS Timed 05/08/2025 4:22 PM CDT MAGNESIUM Timed 05/08/2025 4:22 PM CDT BASIC METABOLIC PANEL Timed 05/08/2025 4:22 PM CDT PEP THERAPY Routine 05/08/2025 1:00 PM CDT OXYHEMOGLOBIN, PULMONARY ARTERY Timed 05/08/2025 8:21 AM CDT HEMOGLOBIN TOTAL, PULMONARY ARTERY Timed 05/08/2025 8:21 AM CDT LACTATE, WHOLE BLOOD Timed 05/08/2025 8:21 AM CDT PEP THERAPY Routine 05/08/2025 8:01 AM CDT XR CHEST 1 VIEW Timed 05/08/2025 5:48 AM CDT EGFR Timed 05/08/2025 5:29 AM CDT LACTATE, WHOLE BLOOD Timed 05/08/2025 5:29 AM CDT APTT STAT 05/08/2025 5:29 AM CDT OXYHEMOGLOBIN, PULMONARY ARTERY Timed 05/08/2025 5:29 AM CDT HEMOGLOBIN TOTAL, PULMONARY ARTERY Timed 05/08/2025 5:29 AM CDT PHOSPHORUS Timed 05/08/2025 5:29 AM CDT MAGNESIUM Timed 05/08/2025 5:29 AM CDT HEPATIC FUNCTION PANEL Routine 05/08/2025 5:29 AM CDT CBC WITHOUT DIFFERENTIAL Routine 05/08/2025 5:29 AM CDT BASIC METABOLIC PANEL Timed 05/08/2025 5:29 AM CDT OXYHEMOGLOBIN, PULMONARY ARTERY Timed 05/07/2025 11:15 PM CDT HEMOGLOBIN TOTAL, PULMONARY ARTERY Timed 05/07/2025 11:15 PM CDT LACTATE, WHOLE BLOOD Timed 05/07/2025 11:15 PM CDT PEP THERAPY Routine 05/07/2025 10:00 PM CDT PEP THERAPY Routine 05/07/2025 6:00 PM CDT EGFR Timed 05/07/2025 4:15 PM CDT OXYHEMOGLOBIN, PULMONARY ARTERY Timed 05/07/2025 4:15 PM CDT HEMOGLOBIN TOTAL, PULMONARY ARTERY Timed 05/07/2025 4:15 PM CDT LACTATE, WHOLE BLOOD Timed 05/07/2025 4:15 PM CDT PHOSPHORUS Timed 05/07/2025 4:15 PM CDT MAGNESIUM Timed 05/07/2025 4:15 PM CDT BASIC METABOLIC PANEL Timed 05/07/2025 4:15 PM CDT PEP THERAPY Routine 05/07/2025 1:00 PM CDT SHADY (YEAST) CULTURE Routine 05/07/2025 11:38 AM CDT MOLECULAR INFECTIOUS DISEASE LAB INFECTION PREVENTION CRITICAL CALLBACK BATTERY Routine 05/07/2025 11:38 AM CDT INFECTION PREVENTION SHADY AURIS PCR, SURVEILLANCE Routine 05/07/2025 11:38 AM CDT POTASSIUM, WHOLE BLOOD STAT 05/07/2025 11:34 AM CDT OXYHEMOGLOBIN, PULMONARY ARTERY Timed 05/07/2025 11:34 AM CDT HEMOGLOBIN TOTAL, PULMONARY ARTERY Timed 05/07/2025 11:34 AM CDT LACTATE, WHOLE BLOOD Timed 05/07/2025 11:34 AM CDT PEP THERAPY Routine 05/07/2025 8:01 AM CDT XR CHEST 1 VIEW Timed 05/07/2025 6:22 AM CDT APTT STAT 05/07/2025 4:25 AM CDT EGFR Timed 05/07/2025 4:23 AM CDT OXYHEMOGLOBIN, PULMONARY ARTERY Timed 05/07/2025 4:23 AM CDT HEMOGLOBIN TOTAL, PULMONARY ARTERY Timed 05/07/2025 4:23 AM CDT LACTATE, WHOLE BLOOD Timed 05/07/2025 4:23 AM CDT PHOSPHORUS Timed 05/07/2025 4:23 AM CDT MAGNESIUM Timed 05/07/2025 4:23 AM CDT HEPATIC FUNCTION PANEL Routine 05/07/2025 4:23 AM CDT CBC WITHOUT DIFFERENTIAL Routine 05/07/2025 4:23 AM CDT BASIC METABOLIC PANEL Timed 05/07/2025 4:23 AM CDT OXYHEMOGLOBIN, PULMONARY ARTERY Timed 2025 11:18 PM CDT HEMOGLOBIN TOTAL, PULMONARY ARTERY Timed 2025 11:18 PM CDT LACTATE, WHOLE BLOOD Timed 2025 11:18 PM CDT PEP THERAPY Routine 2025 10:00 PM CDT PEP THERAPY Routine 2025 6:00 PM CDT EGFR Timed 2025 4:44 PM CDT OXYHEMOGLOBIN, PULMONARY ARTERY Timed 2025 4:44 PM CDT HEMOGLOBIN TOTAL, PULMONARY ARTERY Timed 2025 4:44 PM CDT LACTATE, WHOLE BLOOD Timed 2025 4:44 PM CDT PHOSPHORUS Timed 2025 4:44 PM CDT MAGNESIUM Timed 2025 4:44 PM CDT BASIC METABOLIC PANEL Timed 2025 4:44 PM CDT PEP THERAPY Routine 2025 1:01 PM CDT XR CHEST 1 VIEW ED Urgent/IP Urgent 2025 11:00 AM CDT POTASSIUM, WHOLE BLOOD STAT 2025 8:17 AM CDT OXYHEMOGLOBIN, PULMONARY ARTERY Timed 2025 8:17 AM CDT HEMOGLOBIN TOTAL, PULMONARY ARTERY Timed 2025 8:17 AM CDT LACTATE, WHOLE BLOOD Timed 2025 8:17 AM CDT PEP THERAPY Routine 2025 8:01 AM CDT XR CHEST 1 VIEW Timed 2025 6:46 AM CDT APTT STAT 2025 4:28 AM CDT EGFR Timed 2025 4:27 AM CDT OXYHEMOGLOBIN, PULMONARY ARTERY Timed 2025 4:27 AM CDT HEMOGLOBIN TOTAL, PULMONARY ARTERY Timed 2025 4:27 AM CDT LACTATE, WHOLE BLOOD Timed 2025 4:27 AM CDT PHOSPHORUS Timed 2025 4:27 AM CDT MAGNESIUM Timed 2025 4:27 AM CDT HEPATIC FUNCTION PANEL Routine 2025 4:27 AM CDT CBC WITHOUT DIFFERENTIAL Routine 2025 4:27 AM CDT BASIC METABOLIC PANEL Timed 2025 4:27 AM CDT ANTIBODY IDENTIFICATION Routine 05/05/2025 11:27 PM CDT OXYHEMOGLOBIN, PULMONARY ARTERY Timed 05/05/2025 10:09 PM CDT HEMOGLOBIN TOTAL, PULMONARY ARTERY Timed 05/05/2025 10:09 PM CDT LACTATE, WHOLE BLOOD Timed 05/05/2025 10:09 PM CDT TYPE AND SCREEN Timed 05/05/2025 10:09 PM CDT PEP THERAPY Routine 05/05/2025 10:00 PM CDT PEP THERAPY Routine 05/05/2025 6:00 PM CDT EGFR Timed 05/05/2025 4:55 PM CDT OXYHEMOGLOBIN, PULMONARY ARTERY Timed 05/05/2025 4:55 PM CDT HEMOGLOBIN TOTAL, PULMONARY ARTERY Timed 05/05/2025 4:55 PM CDT LACTATE, WHOLE BLOOD Timed 05/05/2025 4:55 PM CDT PHOSPHORUS Timed 05/05/2025 4:55 PM CDT MAGNESIUM Timed 05/05/2025 4:55 PM CDT BASIC METABOLIC PANEL Timed 05/05/2025 4:55 PM CDT PEP THERAPY Routine 05/05/2025 1:00 PM CDT OXYHEMOGLOBIN, PULMONARY ARTERY Timed 05/05/2025 11:54 AM CDT HEMOGLOBIN TOTAL, PULMONARY ARTERY Timed 05/05/2025 11:54 AM CDT LACTATE, WHOLE BLOOD Timed 05/05/2025 11:54 AM CDT PEP THERAPY Routine 05/05/2025 8:00 AM CDT XR CHEST 1 VIEW Timed 05/05/2025 6:12 AM CDT OXYHEMOGLOBIN, PULMONARY ARTERY Routine 05/05/2025 5:31 AM CDT HEMOGLOBIN TOTAL, PULMONARY ARTERY Routine 05/05/2025 5:31 AM CDT EGFR Timed 05/05/2025 4:16 AM CDT APTT STAT 05/05/2025 4:16 AM CDT OXYHEMOGLOBIN, PULMONARY ARTERY Timed 05/05/2025 4:16 AM CDT HEMOGLOBIN TOTAL, PULMONARY ARTERY Timed 05/05/2025 4:16 AM CDT LACTATE, WHOLE BLOOD Timed 05/05/2025 4:16 AM CDT PHOSPHORUS Timed 05/05/2025 4:16 AM CDT MAGNESIUM Timed 05/05/2025 4:16 AM CDT HEPATIC FUNCTION PANEL Routine 05/05/2025 4:16 AM CDT CBC WITHOUT DIFFERENTIAL Routine 05/05/2025 4:16 AM CDT BASIC METABOLIC PANEL Timed 05/05/2025 4:16 AM CDT POTASSIUM, WHOLE BLOOD STAT 05/04/2025 10:07 PM CDT OXYHEMOGLOBIN, PULMONARY ARTERY Timed 05/04/2025 10:07 PM CDT HEMOGLOBIN TOTAL, PULMONARY ARTERY Timed 05/04/2025 10:07 PM CDT LACTATE, WHOLE BLOOD Timed 05/04/2025 10:07 PM CDT PEP THERAPY Routine 05/04/2025 10:00 PM CDT PEP THERAPY Routine 05/04/2025 9:57 PM CDT PEP THERAPY Routine 05/04/2025 9:57 PM CDT PEP THERAPY Routine 05/04/2025 9:57 PM CDT PEP THERAPY Routine 05/04/2025 9:57 PM CDT EGFR Timed 05/04/2025 5:28 PM CDT OXYHEMOGLOBIN, PULMONARY ARTERY Timed 05/04/2025 5:28 PM CDT HEMOGLOBIN TOTAL, PULMONARY ARTERY Timed 05/04/2025 5:28 PM CDT LACTATE, WHOLE BLOOD Timed 05/04/2025 5:28 PM CDT PHOSPHORUS Timed 05/04/2025 5:28 PM CDT MAGNESIUM Timed 05/04/2025 5:28 PM CDT BASIC METABOLIC PANEL Timed 05/04/2025 5:28 PM CDT POC BLOOD GAS AND CHEMISTRIES, ARTERIAL Routine 05/04/2025 2:52 PM CDT OXYHEMOGLOBIN, PULMONARY ARTERY Timed 05/04/2025 11:53 AM CDT HEMOGLOBIN TOTAL, PULMONARY ARTERY Timed 05/04/2025 11:53 AM CDT LACTATE, WHOLE BLOOD Timed 05/04/2025 11:53 AM CDT XR CHEST 1 VIEW Timed 05/04/2025 5:55 AM CDT EGFR Timed 05/04/2025 5:39 AM CDT APTT STAT 05/04/2025 5:39 AM CDT POTASSIUM, WHOLE BLOOD STAT 05/04/2025 5:39 AM CDT OXYHEMOGLOBIN, PULMONARY ARTERY Timed 05/04/2025 5:39 AM CDT HEMOGLOBIN TOTAL, PULMONARY ARTERY Timed 05/04/2025 5:39 AM CDT LACTATE, WHOLE BLOOD Timed 05/04/2025 5:39 AM CDT PHOSPHORUS Timed 05/04/2025 5:39 AM CDT MAGNESIUM Timed 05/04/2025 5:39 AM CDT HEPATIC FUNCTION PANEL Routine 05/04/2025 5:39 AM CDT CBC WITHOUT DIFFERENTIAL Routine 05/04/2025 5:39 AM CDT BASIC METABOLIC PANEL Timed 05/04/2025 5:39 AM CDT POTASSIUM, WHOLE BLOOD Timed 05/03/2025 11:21 PM CDT LACTATE, WHOLE BLOOD Timed 05/03/2025 11:21 PM CDT OXYHEMOGLOBIN, PULMONARY ARTERY Timed 05/03/2025 11:21 PM CDT HEMOGLOBIN TOTAL, PULMONARY ARTERY Timed 05/03/2025 11:21 PM CDT EGFR Timed 05/03/2025 5:23 PM CDT OXYHEMOGLOBIN, PULMONARY ARTERY Timed 05/03/2025 5:23 PM CDT HEMOGLOBIN TOTAL, PULMONARY ARTERY Timed 05/03/2025 5:23 PM CDT LACTATE, WHOLE BLOOD Timed 05/03/2025 5:23 PM CDT PHOSPHORUS Timed 05/03/2025 5:23 PM CDT MAGNESIUM Timed 05/03/2025 5:23 PM CDT BASIC METABOLIC PANEL Timed 05/03/2025 5:23 PM CDT OXYHEMOGLOBIN, PULMONARY ARTERY Timed 05/03/2025 11:13 AM CDT HEMOGLOBIN TOTAL, PULMONARY ARTERY Timed 05/03/2025 11:13 AM CDT LACTATE, WHOLE BLOOD Timed 05/03/2025 11:13 AM CDT INFECTION PREVENTION SHADY AURIS PCR, SURVEILLANCE Routine 05/03/2025 9:19 AM CDT XR CHEST 1 VIEW Timed 05/03/2025 6:11 AM CDT EGFR Timed 05/03/2025 4:42 AM CDT APTT STAT 05/03/2025 4:42 AM CDT OXYHEMOGLOBIN, PULMONARY ARTERY Timed 05/03/2025 4:42 AM CDT HEMOGLOBIN TOTAL, PULMONARY ARTERY Timed 05/03/2025 4:42 AM CDT LACTATE, WHOLE BLOOD Timed 05/03/2025 4:42 AM CDT PHOSPHORUS Timed 05/03/2025 4:42 AM CDT MAGNESIUM Timed 05/03/2025 4:42 AM CDT HEPATIC FUNCTION PANEL Routine 05/03/2025 4:42 AM CDT CBC WITHOUT DIFFERENTIAL Routine 05/03/2025 4:42 AM CDT BASIC METABOLIC PANEL Timed 05/03/2025 4:42 AM CDT APTT STAT 05/03/2025 12:09 AM CDT MAGNESIUM STAT 05/02/2025 10:07 PM CDT APTT STAT 05/02/2025 10:03 PM CDT POTASSIUM, WHOLE BLOOD STAT 05/02/2025 10:03 PM CDT OXYHEMOGLOBIN, PULMONARY ARTERY STAT 05/02/2025 8:32 PM CDT HEMOGLOBIN TOTAL, PULMONARY ARTERY STAT 05/02/2025 8:32 PM CDT XR CHEST 1 VIEW ED Urgent/IP Urgent 05/02/2025 7:19 PM CDT APTT STAT 05/02/2025 6:48 PM CDT ANTIBODY IDENTIFICATION Routine 05/02/2025 6:38 PM CDT HEMOGLOBIN TOTAL, PULMONARY ARTERY STAT 05/02/2025 4:24 PM CDT EGFR Timed 05/02/2025 4:21 PM CDT OXYHEMOGLOBIN, PULMONARY ARTERY STAT 05/02/2025 4:21 PM CDT PHOSPHORUS Timed 05/02/2025 4:21 PM CDT MAGNESIUM Timed 05/02/2025 4:21 PM CDT BASIC METABOLIC PANEL Timed 05/02/2025 4:21 PM CDT TYPE AND SCREEN Timed 05/02/2025 4:21 PM CDT BLOOD CULTURE Routine 05/02/2025 4:21 PM CDT BLOOD CULTURE Routine 05/02/2025 4:21 PM CDT ECG 12-LEAD STAT 05/02/2025 4:11 PM CDT RIGHT HEART CATHETERIZATION CORONARY ARTERY GRAFT ANGIOGRAM Routine 05/02/2025 1:47 PM CDT Acute on chronic congestive heart failure, unspecified heart failure type (HCC) RIGHT HEART CATH Routine 05/02/2025 1:47 PM CDT Acute on chronic congestive heart failure, unspecified heart failure type (HCC) POCT OXYHEMOGLOBIN - DEVICE Routine 05/02/2025 1:25 PM CDT POCT OXYHEMOGLOBIN - DEVICE Routine 05/02/2025 1:24 PM CDT POTASSIUM, WHOLE BLOOD STAT 05/02/2025 6:38 AM CDT APTT STAT 05/01/2025 9:31 PM CDT EGFR Timed 05/01/2025 9:22 PM CDT PHOSPHORUS Routine 05/01/2025 9:22 PM CDT MAGNESIUM Routine 05/01/2025 9:22 PM CDT HEPATIC FUNCTION PANEL Routine 05/01/2025 9:22 PM CDT CBC WITHOUT DIFFERENTIAL Routine 05/01/2025 9:22 PM CDT BASIC METABOLIC PANEL Timed 05/01/2025 9:22 PM CDT POTASSIUM, WHOLE BLOOD STAT 05/01/2025 1:40 PM CDT POTASSIUM, WHOLE BLOOD STAT 05/01/2025 4:00 AM CDT EGFR Timed 04/30/2025 8:22 PM CDT APTT STAT 04/30/2025 8:22 PM CDT PHOSPHORUS Routine 04/30/2025 8:22 PM CDT MAGNESIUM Routine 04/30/2025 8:22 PM CDT HEPATIC FUNCTION PANEL Routine 04/30/2025 8:22 PM CDT CBC WITHOUT DIFFERENTIAL Routine 04/30/2025 8:22 PM CDT BASIC METABOLIC PANEL Timed 04/30/2025 8:22 PM CDT POTASSIUM, WHOLE BLOOD STAT 04/30/2025 5:27 PM CDT EGFR Timed 04/30/2025 9:12 AM CDT OXYHEMOGLOBIN, PULMONARY ARTERY STAT 04/30/2025 9:12 AM CDT HEMOGLOBIN TOTAL, PULMONARY ARTERY STAT 04/30/2025 9:12 AM CDT BASIC METABOLIC PANEL Timed 04/30/2025 9:12 AM CDT INFECTION PREVENTION SHADY AURIS PCR, SURVEILLANCE Routine 04/30/2025 9:12 AM CDT XR CHEST 1 VIEW Timed 04/30/2025 8:50 AM CDT APTT STAT 04/30/2025 6:01 AM CDT APTT STAT 04/30/2025 3:36 AM CDT APTT STAT 04/29/2025 11:45 PM CDT ANTIBODY IDENTIFICATION Routine 04/29/2025 9:31 PM CDT CBC WITH AUTO DIFFERENTIAL Routine 04/29/2025 7:58 PM CDT DIFFERENTIAL AUTO Routine 04/29/2025 7:5 8 PM CDT EGFR Timed 04/29/2025 7:58 PM CDT APTT STAT 04/29/2025 7:58 PM CDT TYPE AND SCREEN Timed 04/29/2025 7:58 PM CDT PHOSPHORUS Routine 04/29/2025 7:58 PM CDT MAGNESIUM Routine 04/29/2025 7:58 PM CDT HEPATIC FUNCTION PANEL Routine 04/29/2025 7:58 PM CDT CBC WITHOUT DIFFERENTIAL Routine 04/29/2025 7:58 PM CDT BASIC METABOLIC PANEL Timed 04/29/2025 7:58 PM CDT OXYHEMOGLOBIN, PULMONARY ARTERY Timed 04/29/2025 7:58 PM CDT XR CHEST 1 VIEW Timed 04/29/2025 10:38 AM CDT EGFR STAT 04/29/2025 7:58 AM CDT HEMOGLOBIN TOTAL, PULMONARY ARTERY STAT 04/29/2025 7:58 AM CDT LACTATE STAT 04/29/2025 7:58 AM CDT MAGNESIUM STAT 04/29/2025 7:58 AM CDT COMPREHENSIVE METABOLIC PANEL STAT 04/29/2025 7:58 AM CDT OXYHEMOGLOBIN, PULMONARY ARTERY Timed 04/29/2025 7:58 AM CDT EGFR Timed 04/28/2025 9:58 PM CDT OXYHEMOGLOBIN, PULMONARY ARTERY STAT 04/28/2025 9:58 PM CDT HEMOGLOBIN TOTAL, PULMONARY ARTERY STAT 04/28/2025 9:58 PM CDT APTT STAT 04/28/2025 9:58 PM CDT PHOSPHORUS Routine 04/28/2025 9:58 PM CDT MAGNESIUM Routine 04/28/2025 9:58 PM CDT HEPATIC FUNCTION PANEL Routine 04/28/2025 9:58 PM CDT CBC WITHOUT DIFFERENTIAL Routine 04/28/2025 9:58 PM CDT BASIC METABOLIC PANEL Timed 04/28/2025 9:58 PM CDT POTASSIUM, WHOLE BLOOD STAT 04/28/2025 12:19 PM CDT EGFR Timed 04/28/2025 8:22 AM CDT HEMOGLOBIN TOTAL, PULMONARY ARTERY STAT 04/28/2025 8:22 AM CDT BASIC METABOLIC PANEL Timed 04/28/2025 8:22 AM CDT OXYHEMOGLOBIN, PULMONARY ARTERY Timed 04/28/2025 8:22 AM CDT XR CHEST 1 VIEW Timed 04/28/2025 8:10 AM CDT POTASSIUM, WHOLE BLOOD STAT 04/28/2025 6:33 AM CDT EGFR Timed 04/27/2025 9:06 PM CDT HEMOGLOBIN TOTAL, PULMONARY ARTERY STAT 04/27/2025 9:06 PM CDT APTT STAT 04/27/2025 9:06 PM CDT PHOSPHORUS Routine 04/27/2025 9:06 PM CDT MAGNESIUM Routine 04/27/2025 9:06 PM CDT HEPATIC FUNCTION PANEL Routine 04/27/2025 9:06 PM CDT CBC WITHOUT DIFFERENTIAL Routine 04/27/2025 9:06 PM CDT BASIC METABOLIC PANEL Timed 04/27/2025 9:06 PM CDT OXYHEMOGLOBIN, PULMONARY ARTERY Timed 04/27/2025 9:06 PM CDT EGFR Timed 04/27/2025 8:55 AM CDT LACTATE, WHOLE BLOOD Timed 04/27/2025 8:55 AM CDT HEMOGLOBIN TOTAL, PULMONARY ARTERY STAT 04/27/2025 8:55 AM CDT BASIC METABOLIC PANEL Timed 04/27/2025 8:55 AM CDT OXYHEMOGLOBIN, PULMONARY ARTERY Timed 04/27/2025 8:55 AM CDT XR CHEST 1 VIEW Timed 04/27/2025 8:23 AM CDT ANTIBODY IDENTIFICATION Routine 04/27/2025 12:30 AM CDT EGFR Timed 04/26/2025 10:18 PM CDT HEMOGLOBIN TOTAL, PULMONARY ARTERY STAT 04/26/2025 10:18 PM CDT APTT STAT 04/26/2025 10:18 PM CDT TYPE AND SCREEN Timed 04/26/2025 10:18 PM CDT PHOSPHORUS Routine 04/26/2025 10:18 PM CDT MAGNESIUM Routine 04/26/2025 10:18 PM CDT HEPATIC FUNCTION PANEL Routine 04/26/2025 10:18 PM CDT CBC WITHOUT DIFFERENTIAL Routine 04/26/2025 10:18 PM CDT BASIC METABOLIC PANEL Timed 04/26/2025 10:18 PM CDT LACTATE, WHOLE BLOOD Timed 04/26/2025 10:18 PM CDT OXYHEMOGLOBIN, PULMONARY ARTERY Timed 04/26/2025 10:18 PM CDT INFECTION PREVENTION SHADY AURIS PCR, SURVEILLANCE Routine 04/26/2025 12:42 PM CDT XR CHEST 1 VIEW Timed 04/26/2025 9:13 AM CDT EGFR Timed 04/26/2025 8:37 AM CDT HEMOGLOBIN TOTAL, PULMONARY ARTERY STAT 04/26/2025 8:37 AM CDT BASIC METABOLIC PANEL Timed 04/26/2025 8:37 AM CDT LACTATE, WHOLE BLOOD Timed 04/26/2025 8:37 AM CDT OXYHEMOGLOBIN, PULMONARY ARTERY Timed 04/26/2025 8:37 AM CDT APTT STAT 04/25/2025 10:05 PM CDT EGFR Timed 04/25/2025 8:14 PM CDT POTASSIUM, WHOLE BLOOD STAT 04/25/2025 8:14 PM CDT APTT STAT 04/25/2025 8:14 PM CDT PHOSPHORUS Routine 04/25/2025 8:14 PM CDT MAGNESIUM Routine 04/25/2025 8:14 PM CDT HEPATIC FUNCTION PANEL Routine 04/25/2025 8:14 PM CDT CBC WITHOUT DIFFERENTIAL Routine 04/25/2025 8:14 PM CDT BASIC METABOLIC PANEL Timed 04/25/2025 8:14 PM CDT LACTATE, WHOLE BLOOD Timed 04/25/2025 8:14 PM CDT OXYHEMOGLOBIN, PULMONARY ARTERY Timed 04/25/2025 8:14 PM CDT XR CHEST 1 VIEW ED Urgent/IP Urgent 04/25/2025 2:22 PM CDT XR CHEST 1 VIEW Timed 04/25/2025 9:38 AM CDT EGFR Timed 04/25/2025 8:42 AM CDT HEMOGLOBIN TOTAL, PULMONARY ARTERY STAT 04/25/2025 8:42 AM CDT OXYHEMOGLOBIN, PULMONARY ARTERY STAT 04/25/2025 8:42 AM CDT BASIC METABOLIC PANEL Timed 04/25/2025 8:42 AM CDT LACTATE, WHOLE BLOOD Timed 04/25/2025 8:42 AM CDT POTASSIUM, WHOLE BLOOD STAT 04/25/2025 6:47 AM CDT EGFR Timed 04/24/2025 8:08 PM CDT APTT STAT 04/24/2025 8:08 PM CDT POTASSIUM, WHOLE BLOOD STAT 04/24/2025 8:08 PM CDT PHOSPHORUS Routine 04/24/2025 8:08 PM CDT MAGNESIUM Routine 04/24/2025 8:08 PM CDT HEPATIC FUNCTION PANEL Routine 04/24/2025 8:08 PM CDT CBC WITHOUT DIFFERENTIAL Routine 04/24/2025 8:08 PM CDT BASIC METABOLIC PANEL Timed 04/24/2025 8:08 PM CDT LACTATE, WHOLE BLOOD Timed 04/24/2025 8:08 PM CDT OXYHEMOGLOBIN, PULMONARY ARTERY Timed 04/24/2025 8:08 PM CDT XR CHEST 1 VIEW ED Urgent/IP Urgent 04/24/2025 4:07 PM CDT XR CHEST 1 VIEW ED Urgent/IP Urgent 04/24/2025 11:48 AM CDT XR CHEST 1 VIEW Timed 04/24/2025 10:39 AM CDT EGFR Timed 04/24/2025 8:54 AM CDT HEMOGLOBIN TOTAL, PULMONARY ARTERY STAT 04/24/2025 8:54 AM CDT BASIC METABOLIC PANEL Timed 04/24/2025 8:54 AM CDT LACTATE, WHOLE BLOOD Timed 04/24/2025 8:54 AM CDT OXYHEMOGLOBIN, PULMONARY ARTERY Timed 04/24/2025 8:54 AM CDT ANTIBODY IDENTIFICATION Routine 04/23/2025 10:44 PM CDT EGFR Timed 04/23/2025 8:56 PM CDT POTASSIUM, WHOLE BLOOD STAT 04/23/2025 8:56 PM CDT APTT STAT 04/23/2025 8:56 PM CDT TYPE AND SCREEN Timed 04/23/2025 8:56 PM CDT PHOSPHORUS Routine 04/23/2025 8:56 PM CDT MAGNESIUM Routine 04/23/2025 8:56 PM CDT HEPATIC FUNCTION PANEL Routine 04/23/2025 8:56 PM CDT CBC WITHOUT DIFFERENTIAL Routine 04/23/2025 8:56 PM CDT BASIC METABOLIC PANEL Timed 04/23/2025 8:56 PM CDT LACTATE, WHOLE BLOOD Timed 04/23/2025 8:56 PM CDT OXYHEMOGLOBIN, PULMONARY ARTERY Timed 04/23/2025 8:56 PM CDT POTASSIUM, WHOLE BLOOD STAT 04/23/2025 1:02 PM CDT XR CHEST 1 VIEW Timed 04/23/2025 10:09 AM CDT EGFR Timed 04/23/2025 8:36 AM CDT HEMOGLOBIN TOTAL, PULMONARY ARTERY STAT 04/23/2025 8:36 AM CDT BASIC METABOLIC PANEL Timed 04/23/2025 8:36 AM CDT LACTATE, WHOLE BLOOD Timed 04/23/2025 8:36 AM CDT OXYHEMOGLOBIN, PULMONARY ARTERY Timed 04/23/2025 8:36 AM CDT APTT STAT 04/23/2025 5:26 AM CDT EGFR Timed 04/22/2025 8:40 PM CDT HEMOGLOBIN TOTAL, PULMONARY ARTERY STAT 04/22/2025 8:40 PM CDT PHOSPHORUS Routine 04/22/2025 8:40 PM CDT MAGNESIUM Routine 04/22/2025 8:40 PM CDT HEPATIC FUNCTION PANEL Routine 04/22/2025 8:40 PM CDT CBC WITHOUT DIFFERENTIAL Routine 04/22/2025 8:40 PM CDT BASIC METABOLIC PANEL Timed 04/22/2025 8:40 PM CDT LACTATE, WHOLE BLOOD Timed 04/22/2025 8:40 PM CDT OXYHEMOGLOBIN, PULMONARY ARTERY Timed 04/22/2025 8:40 PM CDT POTASSIUM, WHOLE BLOOD STAT 04/22/2025 2:15 PM CDT XR CHEST 1 VIEW Timed 04/22/2025 8:43 AM CDT EGFR Timed 04/22/2025 7:35 AM CDT POTASSIUM, WHOLE BLOOD STAT 04/22/2025 7:35 AM CDT HEMOGLOBIN TOTAL, PULMONARY ARTERY STAT 04/22/2025 7:35 AM CDT BASIC METABOLIC PANEL Timed 04/22/2025 7:35 AM CDT LACTATE, WHOLE BLOOD Timed 04/22/2025 7:35 AM CDT OXYHEMOGLOBIN, PULMONARY ARTERY Timed 04/22/2025 7:35 AM CDT EGFR Timed 04/21/2025 10:13 PM CDT HEMOGLOBIN TOTAL, PULMONARY ARTERY STAT 04/21/2025 10:13 PM CDT APTT STAT 04/21/2025 10:13 PM CDT PHOSPHORUS Routine 04/21/2025 10:13 PM CDT MAGNESIUM Routine 04/21/2025 10:13 PM CDT HEPATIC FUNCTION PANEL Routine 04/21/2025 10:13 PM CDT CBC WITHOUT DIFFERENTIAL Routine 04/21/2025 10:13 PM CDT BASIC METABOLIC PANEL Timed 04/21/2025 10:13 PM CDT LACTATE, WHOLE BLOOD Timed 04/21/2025 10:13 PM CDT OXYHEMOGLOBIN, PULMONARY ARTERY Timed 04/21/2025 10:13 PM CDT POTASSIUM, WHOLE BLOOD STAT 04/21/2025 2:54 PM CDT XR CHEST 1 VIEW Timed 04/21/2025 10:55 AM CDT HEMOGLOBIN TOTAL, PULMONARY ARTERY STAT 04/21/2025 8:41 AM CDT OXYHEMOGLOBIN, PULMONARY ARTERY STAT 04/21/2025 8:41 AM CDT EGFR Timed 04/21/2025 8:39 AM CDT BASIC METABOLIC PANEL Timed 04/21/2025 8:39 AM CDT LACTATE, WHOLE BLOOD Timed 04/21/2025 8:39 AM CDT OXYHEMOGLOBIN, PULMONARY ARTERY Timed 04/21/2025 8:39 AM CDT POTASSIUM, WHOLE BLOOD STAT 04/21/2025 4:39 AM CDT ANTIBODY IDENTIFICATION Routine 04/20/2025 10:54 PM CDT EGFR Timed 04/20/2025 9:19 PM CDT APTT STAT 04/20/2025 9:19 PM CDT OXYHEMOGLOBIN, PULMONARY ARTERY STAT 04/20/2025 9:19 PM CDT HEMOGLOBIN TOTAL, PULMONARY ARTERY STAT 04/20/2025 9:19 PM CDT TYPE AND SCREEN Timed 04/20/2025 9:19 PM CDT PHOSPHORUS Routine 04/20/2025 9:19 PM CDT MAGNESIUM Routine 04/20/2025 9:19 PM CDT HEPATIC FUNCTION PANEL Routine 04/20/2025 9:19 PM CDT CBC WITHOUT DIFFERENTIAL Routine 04/20/2025 9:19 PM CDT BASIC METABOLIC PANEL Timed 04/20/2025 9:19 PM CDT LACTATE, WHOLE BLOOD Timed 04/20/2025 9:19 PM CDT POTASSIUM, WHOLE BLOOD STAT 04/20/2025 4:11 PM CDT HEMOGLOBIN TOTAL, PULMONARY ARTERY STAT 04/20/2025 9:47 AM CDT EGFR Timed 04/20/2025 9:46 AM CDT BASIC METABOLIC PANEL Timed 04/20/2025 9:46 AM CDT LACTATE, WHOLE BLOOD Timed 04/20/2025 9:46 AM CDT OXYHEMOGLOBIN, PULMONARY ARTERY Timed 04/20/2025 9:46 AM CDT XR CHEST 1 VIEW Timed 04/20/2025 9:02 AM CDT EGFR Timed 04/19/2025 9:41 PM CDT APTT STAT 04/19/2025 9:41 PM CDT HEMOGLOBIN TOTAL, PULMONARY ARTERY STAT 04/19/2025 9:41 PM CDT OXYHEMOGLOBIN, PULMONARY ARTERY STAT 04/19/2025 9:41 PM CDT PHOSPHORUS Routine 04/19/2025 9:41 PM CDT MAGNESIUM Routine 04/19/2025 9:41 PM CDT HEPATIC FUNCTION PANEL Routine 04/19/2025 9:41 PM CDT CBC WITHOUT DIFFERENTIAL Routine 04/19/2025 9:41 PM CDT BASIC METABOLIC PANEL Timed 04/19/2025 9:41 PM CDT LACTATE, WHOLE BLOOD Timed 04/19/2025 9:41 PM CDT INFECTION PREVENTION SHADY AURIS PCR, SURVEILLANCE Routine 04/19/2025 2:06 PM CDT EGFR Timed 04/19/2025 9:05 AM CDT HEMOGLOBIN TOTAL, PULMONARY ARTERY STAT 04/19/2025 9:05 AM CDT BASIC METABOLIC PANEL Timed 04/19/2025 9:05 AM CDT LACTATE, WHOLE BLOOD Timed 04/19/2025 9:05 AM CDT OXYHEMOGLOBIN, PULMONARY ARTERY Timed 04/19/2025 9:05 AM CDT APTT STAT 04/18/2025 9:09 PM CDT OXYHEMOGLOBIN, PULMONARY ARTERY STAT 04/18/2025 9:09 PM CDT EGFR Routine 04/18/2025 9:08 PM CDT PHOSPHORUS Routine 04/18/2025 9:08 PM CDT MAGNESIUM Routine 04/18/2025 9:08 PM CDT HEPATIC FUNCTION PANEL Routine 04/18/2025 9:08 PM CDT CBC WITHOUT DIFFERENTIAL Routine 04/18/2025 9:08 PM CDT BASIC METABOLIC PANEL Routine 04/18/2025 9:08 PM CDT LACTATE, WHOLE BLOOD Timed 04/18/2025 9:08 PM CDT IR OUTSIDE REFERENCE Routine 04/18/2025 1:54 PM CDT XR CHEST 1 VIEW Timed 04/18/2025 9:43 AM CDT HEMOGLOBIN TOTAL, PULMONARY ARTERY Timed 04/18/2025 9:03 AM CDT LACTATE, WHOLE BLOOD Timed 04/18/2025 9:03 AM CDT OXYHEMOGLOBIN, PULMONARY ARTERY Timed 04/18/2025 9:03 AM CDT POTASSIUM, WHOLE BLOOD STAT 04/18/2025 6:23 AM CDT APTT STAT 04/18/2025 5:31 AM CDT EGFR Routine 04/17/2025 8:31 PM CDT HEMOGLOBIN TOTAL, PULMONARY ARTERY Timed 04/17/2025 8:31 PM CDT OXYHEMOGLOBIN, PULMONARY ARTERY Timed 04/17/2025 8:31 PM CDT PHOSPHORUS Routine 04/17/2025 8:31 PM CDT MAGNESIUM Routine 04/17/2025 8:31 PM CDT HEPATIC FUNCTION PANEL Routine 04/17/2025 8:31 PM CDT CBC WITHOUT DIFFERENTIAL Routine 04/17/2025 8:31 PM CDT BASIC METABOLIC PANEL Routine 04/17/2025 8:31 PM CDT LACTATE, WHOLE BLOOD Timed 04/17/2025 8:31 PM CDT US TRANSFER OF OUTSIDE FILMS Routine 04/17/2025 7:04 PM CDT US TRANSFER OF OUTSIDE FILMS Routine 04/17/2025 7:03 PM CDT OXYHEMOGLOBIN, PULMONARY ARTERY STAT 04/17/2025 3:37 PM CDT TYPE AND SCREEN Timed 04/17/2025 3:37 PM CDT OXYHEMOGLOBIN, PULMONARY ARTERY STAT 04/17/2025 11:37 AM CDT TRANSTHORACIC ECHO (TTE) COMPLETE W DOPPLER/CF W CONTRAST ED Urgent/IP Urgent 04/17/2025 9:52 AM CDT ANTIBODY IDENTIFICATION Routine 04/17/2025 9:07 AM CDT XR CHEST 1 VIEW ED Urgent/IP Urgent 04/17/2025 8:36 AM CDT APTT STAT 04/17/2025 8:05 AM CDT LACTATE, WHOLE BLOOD Timed 04/17/2025 7:57 AM CDT EGFR Timed 04/17/2025 7:52 AM CDT OXYHEMOGLOBIN, PULMONARY ARTERY Timed 04/17/2025 7:52 AM CDT TYPE AND SCREEN Timed 04/17/2025 7:52 AM CDT PHOSPHORUS Routine 04/17/2025 7:52 AM CDT MAGNESIUM Routine 04/17/2025 7:52 AM CDT HEPATIC FUNCTION PANEL Routine 04/17/2025 7:52 AM CDT CBC WITHOUT DIFFERENTIAL Routine 04/17/2025 7:52 AM CDT BASIC METABOLIC PANEL Timed 04/17/2025 7:52 AM CDT APTT STAT 04/17/2025 6:24 AM CDT OXYHEMOGLOBIN, PULMONARY ARTERY STAT 04/17/2025 4:30 AM CDT HEMOGLOBIN TOTAL, PULMONARY ARTERY STAT 04/17/2025 4:30 AM CDT APTT STAT 04/17/2025 4:30 AM CDT HEMOGLOBIN TOTAL, PULMONARY ARTERY STAT 04/16/2025 8:59 PM CDT LACTATE, WHOLE BLOOD Timed 04/16/2025 8:59 PM CDT OXYHEMOGLOBIN, PULMONARY ARTERY Timed 04/16/2025 8:59 PM CDT ECG 12-LEAD STAT 04/16/2025 5:55 PM CDT BLOOD CULTURE Routine 04/16/2025 5:51 PM CDT BLOOD CULTURE Routine 04/16/2025 5:51 PM CDT XR CHEST 1 VIEW ED Urgent/IP Urgent 04/16/2025 5:48 PM CDT APTT Timed 04/16/2025 5:37 PM CDT PROTIME-INR Timed 04/16/2025 5:37 PM CDT EGFR STAT 04/16/2025 5:33 PM CDT LACTATE, WHOLE BLOOD STAT 04/16/2025 5:33 PM CDT CBC WITHOUT DIFFERENTIAL STAT 04/16/2025 5:33 PM CDT BASIC METABOLIC PANEL STAT 04/16/2025 5:33 PM CDT RIGHT HEART CATH Routine 04/16/2025 12:09 PM CDT Heart failure with reduced ejection fraction (HFrEF, <= 40%) and combined systolic and diastolic dysfunction (HCC) POCT OXYHEMOGLOBIN - DEVICE Routine 04/16/2025 11:50 AM CDT POCT OXYHEMOGLOBIN - DEVICE Routine 04/16/2025 11:49 AM CDT EGFR Routine 04/16/2025 5:58 AM CDT APTT STAT 04/16/2025 5:58 AM CDT BASIC METABOLIC PANEL Routine 04/16/2025 5:58 AM CDT CBC WITHOUT DIFFERENTIAL Routine 04/16/2025 5:58 AM CDT INFECTION PREVENTION SHADY AURIS PCR, SURVEILLANCE Routine 04/15/2025 12:18 PM CDT MAGNESIUM Routine 04/15/2025 5:09 AM CDT EGFR Routine 04/15/2025 5:09 AM CDT APTT STAT 04/15/2025 5:09 AM CDT BASIC METABOLIC PANEL Routine 04/15/2025 5:09 AM CDT CBC WITHOUT DIFFERENTIAL Routine 04/15/2025 5:09 AM CDT APTT STAT 04/14/2025 4:47 PM CDT APTT STAT 04/14/2025 11:34 AM CDT EGFR Routine 04/14/2025 4:00 AM CDT APTT Timed 04/14/2025 4:00 AM CDT BASIC METABOLIC PANEL Routine 04/14/2025 4:00 AM CDT CBC WITHOUT DIFFERENTIAL Routine 04/14/2025 4:00 AM CDT APTT STAT 04/13/2025 5:04 AM CDT EGFR Routine 04/13/2025 4:30 AM CDT BASIC METABOLIC PANEL Routine 04/13/2025 4:30 AM CDT CBC WITHOUT DIFFERENTIAL Routine 04/13/2025 4:30 AM CDT EGFR Routine 04/12/2025 4:21 AM CDT APTT STAT 04/12/2025 4:21 AM CDT BASIC METABOLIC PANEL Routine 04/12/2025 4:21 AM CDT CBC WITHOUT DIFFERENTIAL Routine 04/12/2025 4:21 AM CDT INFECTION PREVENTION SHADY AURIS PCR, SURVEILLANCE Routine 04/12/2025 4:21 AM CDT US GUIDED THYROID FINE NEEDLE ASPIRATION 1ST LESION IP Routine 04/11/2025 4:06 PM CDT EGFR Routine 04/11/2025 5:43 AM CDT APTT STAT 04/11/2025 5:43 AM CDT MAGNESIUM Routine 04/11/2025 5:43 AM CDT BASIC METABOLIC PANEL Routine 04/11/2025 5:43 AM CDT CBC WITHOUT DIFFERENTIAL Routine 04/11/2025 5:43 AM CDT CYTOLOGY Routine 04/11/2025 12:00 AM CDT Chronic heart failure with preserved ejection fraction (HCC) AL amyloidosis (HCC) Non-ischemic cardiomyopathy (HCC) INFECTION PREVENTION SHADY AURIS PCR, SURVEILLANCE Routine 04/10/2025 12:30 PM CDT US THYROID IP Routine 04/10/2025 12:04 PM CDT EGFR Routine 04/10/2025 4:33 AM CDT APTT STAT 04/10/2025 4:33 AM CDT MAGNESIUM Routine 04/10/2025 4:33 AM CDT BASIC METABOLIC PANEL Routine 04/10/2025 4:33 AM CDT CBC WITHOUT DIFFERENTIAL Routine 04/10/2025 4:33 AM CDT URINALYSIS AND REFLEX TO MICROSCOPIC AND CULTURE Routine 04/09/2025 5:07 PM CDT XR CHEST PA LATERAL 2 VIEWS IP Routine 04/09/2025 3:26 PM CDT ANTIBODY IDENTIFICATION Routine 04/09/2025 3:[address] HEAD WO CONTRAST IP Routine 04/09/2025 3 :18 PM CDT HLA ANTIBODY SCREEN BY PRA Routine 04/09/2025 1:06 PM CDT PSA DIAGNOSTIC Routine 04/09/2025 1:06 PM CDT TYPE AND SCREEN Timed 04/09/2025 1:06 PM CDT TSH Routine 04/09/2025 1:06 PM CDT COTININE, SERUM Routine 04/09/2025 1:06 PM CDT LIPID PANEL Routine 04/09/2025 1:06 PM CDT IRON PROFILE W/ IBC Routine 04/09/2025 1 :06 PM CDT FERRITIN Routine 04/09/2025 1:06 PM CDT HEMOGLOBIN A1C Routine 04/09/2025 1:06 PM CDT VARICELLA ZOSTER ANTIBODY, IGG Routine 04/09/2025 1:06 PM CDT RPR Routine 04/09/2025 1:06 PM CDT HSV 2 ANTIBODY, IGG Routine 04/09/2025 1 :06 PM CDT HSV 1 ANTIBODY, IGG Routine 04/09/2025 1 :06 PM CDT HIV 1/2 ANTIBODY PLUS P24 ANTIGEN Routine 04/09/2025 1:06 PM CDT HEPATITIS C RNA, QUANTITATIVE, PCR Routine 04/09/2025 1:06 PM CDT HEPATITIS C ANTIBODY Routine 04/09/2025 1:06 PM CDT HEPATITIS B SURFACE ANTIBODY (IMMUNE STATUS) Routine 04/09/2025 1:06 PM CDT HEPATITIS B SURFACE ANTIGEN Routine 04/09/2025 1:06 PM CDT HEPATITIS B CORE ANTIBODY, TOTAL Routine 04/09/2025 1:06 PM CDT PRISCILLA-LEWIS VIRUS VCA ANTIBODY PANEL Routine 04/09/2025 1:06 PM CDT CMV, IGG Routine 04/09/2025 1:06 PM CDT HLA ANTIBODY SCREEN - PRA (CLASS I AND CLASS II) Routine 04/09/2025 12:59 PM CDT AL amyloidosis (HCC) HLA ANTIBODY SCREEN - SAB (CLASS I AND CLASS II) Routine 04/09/2025 12:59 PM CDT AL amyloidosis (HCC) HLA ANTIBODY SCREEN BY PRA OR SAB PER SCHEDULE (CLASS I AND CLASS II) Routine 04/09/2025 12:59 PM CDT AL amyloidosis (HCC) PULMONARY FUNCTION TEST (PFT) Routine 04/09/2025 11:50 AM CDT US CAROTIDS DUPLEX BILATERAL IP Routine 04/09/2025 10:37 AM CDT US SOURAV IP Routine 04/09/2025 10:12 AM CDT APTT STAT 04/09/2025 8:11 AM CDT EGFR Routine 04/09/2025 1:45 AM CDT APTT STAT 04/09/2025 1:45 AM CDT MAGNESIUM Routine 04/09/2025 1:45 AM CDT BASIC METABOLIC PANEL Routine 04/09/2025 1:45 AM CDT CBC WITHOUT DIFFERENTIAL Routine 04/09/2025 1:[address] CHEST ABDOMEN PELVIS WO CONTRAST IP Routine 04/08/2025 10:53 PM CDT EGFR STAT 04/08/2025 6:40 PM CDT DIFFERENTIAL AUTO STAT 04/08/2025 6:4 0 PM CDT DIGOXIN LEVEL Timed 04/08/2025 6:40 PM CDT COMPREHENSIVE METABOLIC PANEL STAT 04/08/2025 6:40 PM CDT MAGNESIUM STAT 04/08/2025 6:40 PM CDT APTT STAT 04/08/2025 6:40 PM CDT PROTIME-INR STAT 04/08/2025 6:40 PM CDT CBC WITH AUTO DIFFERENTIAL STAT 04/08/2025 6:40 PM CDT PRO B-TYPE NATRIURETIC PEPTIDE STAT 04/08/2025 6:40 PM CDT RIGHT HEART CATH Routine 04/08/2025 9:27 AM CDT Chronic heart failure with preserved ejection fraction (HCC) POCT OXYHEMOGLOBIN - DEVICE Routine 04/08/2025 9:21 AM CDT POCT OXYHEMOGLOBIN - DEVICE Routine 04/08/2025 9:20 AM CDT ECG 12-LEAD Routine 04/08/2025 8:19 AM CDT EGFR Routine 04/02/2025 9:42 AM CDT AL amyloidosis (HCC) DIFFERENTIAL AUTO Routine 04/02/2025 9:4 2 AM CDT AL amyloidosis (HCC) BETA 2 MICROGLOBULIN SERUM Routine 04/02/2025 9:42 AM CDT AL amyloidosis (HCC) CBC WITH AUTO DIFFERENTIAL Routine 04/02/2025 9:42 AM CDT AL amyloidosis (HCC) COMPREHENSIVE METABOLIC PANEL Routine 04/02/2025 9:42 AM CDT AL amyloidosis (HCC) IMMUNOGLOBULIN FREE LIGHT CHAINS Routine 04/02/2025 9:42 AM CDT AL amyloidosis (HCC) IGA Routine 04/02/2025 9:42 AM CDT AL amyloidosis (HCC) IGG Routine 04/02/2025 9:42 AM CDT AL amyloidosis (HCC) IGM Routine 04/02/2025 9:42 AM CDT AL amyloidosis (HCC) LACTATE DEHYDROGENASE Routine 04/02/2025 9:42 AM CDT AL amyloidosis (HCC) PRO B-TYPE NATRIURETIC PEPTIDE Routine 04/02/2025 9:42 AM CDT AL amyloidosis (HCC) PROTEIN, TOTAL Routine 04/02/2025 9:42 AM CDT AL amyloidosis (HCC) PROTEIN ELECTROPHORESIS, WITH REFLEX, SERUM Routine 04/02/2025 9:42 AM CDT AL amyloidosis (HCC) PROTIME-INR Routine 04/02/2025 9:42 AM CDT AL amyloidosis (HCC) APTT Routine 04/02/2025 9:42 AM CDT AL amyloidosis (HCC) URIC ACID Routine 04/02/2025 9:42 AM CDT AL amyloidosis (HCC) from Last 3 Months Results * CT head without contrast (06/18/2025 [...] effect or midline shift is present. The ponce-white matter differentiation is normal. The visualized portions [...] effect or midline shift is present. The ponce-white matter differentiation is normal. The visualized portions [...] signed by: Ruddy Webster M.D. Sallie Osman NP IMG CT PROCEDURES Final Re sult * XR Chest Pa Lateral 2 Views [...] Tapia MD IMG XR PROCEDURES Final Result * (ABNORMAL) Differential, auto (06/17/2025 2:15 PM CDT) Neutrophil abs 7.85(H) 1.50 - 6.50 K/cumm Imm gran abs 0.04 0.00 - 0.10 K/cumm [facility] Lymphocyte abs 0.37(L) 0.80 - 3.30 K/cumm [facility] Monocyte abs 0.43 0.20 - 0.80 K/cumm [facility] Eosinophil abs 0.04 0.00 - 0.50 K/cumm [facility] Basophil abs 0.01 0.00 - 0.10 K/cumm [facility] Neutrophil pct 89.8 % [facility] Comment: Interpretive Data Percent cell count reference ranges are not reported, since discordance with absolute values may lead to misinterpretation of CBC data. Current Interpretive Data was last revised on 2018. Imm gran pct 0.5 % [facility] Comment: Interpretive Data Percent cell count reference ranges are not reported, since discordance with absolute values may lead to misinterpretation of CBC data. Current Interpretive Data was last revised on 2018. Lymphocyte pct 4.2 % [facility] Comment: Interpretive Data Percent cell count reference ranges are not reported, since discordance with absolute values may lead to misinterpretation of CBC data. Current Interpretive Data was last revised on 2018. Monocyte pct 4.9 % [facility] Comment: Interpretive Data Percent cell count reference ranges are not reported, since discordance with absolute values may lead to misinterpretation of CBC data. Current Interpretive Data was last revised on 2018. Eosinophil pct 0.5 % [facility] Comment: Interpretive Data Percent cell count reference ranges are not reported, since discordance with absolute values may lead to misinterpretation of CBC data. Current Interpretive Data was last revised on 2018. Basophil pct 0.1 % [facility] Comment: Interpretive Data Percent cell count reference ranges are not reported, since discordance with absolute values may lead to misinterpretation of CBC data. Current Interpretive Data was last revised on 2018. Blood 06/17/2025 2:15 PM CDT 06/17/2025 2:31 PM CDT Carlos Fairbanks MD LAB BLOOD ORDERABLES Fin al Result Performing Organization Address [facility] de Phone Number [facility] [place] [address] * Tacrolimus level trough (06/17/2025 2:15 PM CDT) [facility] Tacrolimus trough 13.3 ng/mL Comment: Interpretive Data Testing performed by liquid chromatography-tandem mass spectrometry. Therapeutic concentrations vary depending on type of transplanted organ and time elapsed since transplant. Typical trough concentrations range from 5-15 ng/mL. This test was developed and its performance characteristics determined by the [facility] consistent with CLIA requirements. This test has not been cleared or approved by the [place] Food and Drug administration. Current interpretive data last reviewed 2020. Blood 06/17/2025 2:15 PM CDT 06/17/2025 2:31 PM CDT Carlos Fairbanks MD LAB BLOOD ORDERABLES Fin al Result Performing Organization Address [facility] de Phone Number [facility] [place] [address] * (ABNORMAL) CBC with auto differential (06/17/2025 2:15 PM CDT) Pathologist [facility] WBC 8.74 3.80 - 9.90 K/cumm Hgb 7.4(L) 13.0 - 17.5 g/dL [facility] Hct 23.7(L) 38.9 - 50.3 % [facility] Plt 384 150 - 400 K/cumm [facility] MPV 10.2 9.1 - 12.[address] [facility] RBC 2.86(L) 4.30 - 5.80 M/cumm [facility] MCV 82.9 81.3 - 96.[address] [facility] MCH 25.9(L) 27.1 - 33.[address] [facility] MCHC 31.2(L) 32.3 - 35.7 g/dL [facility] RDW CV 15.9(H) 11.1 - 14.9 % [facility] RDW SD 47.0 35.7 - 48.[address] [facility] NRBC abs 0.00 0.00 - 0.01 K/cumm [facility] Blood 06/17/2025 2:15 PM CDT 06/17/2025 2:31 PM CDT us Carlos Fairbanks MD LAB BLOOD ORDERABLES Fin al Result [facility] [place] [address] * TRANSTHORACIC ECHO (TTE) COMPLETE W DOPPLER/CF WO CONTRAST (06/17/2025 1:30 PM CDT) [facility] EF Mod BP 63 % CONS SCIMAGE Anatomical Region Laterality Modality Ultrasound 06/17/2025 12:2 5 PM CDT Narrative 06/17/2025 2:[address] [facility] [address], [address] [place] [address] Transthoracic Echocardiographic Report Patient Name: GOSIA ZUNIGA W : 1965 (60y 1m) Gender: M Study Date: 06/17/2025 12:25:46 PM Ht(Inch): 72 Wt(Lb): 175.05 BSA: 2.01 Pack Mule Worker: Gemma Sheehan, RDCS, RCCS, ACS Location: [facility] Order Provider: CARLOS FAIRBANKS BMI: 23.74 BP: 133 / 80 Ref Provider: CARLOS FAIRBANKS - PROCEDURES: Echocardiographic Report: Transthoracic complete echo, 2D, spectral and tissue Doppler, color flow Doppler, M-mode. Additional Procedures: Myocardial strain imaging was performed. Biopsy monitoring. Technically difficult study due to: Limited visualization of some cardiac structures precludes the ability to obtain complete measurements - INDICATIONS: Z94.1 Heart transplant status. CONCLUSIONS: 1. Status post heart transplant. Endomyocardial biopsy performed without apparent complication. 2. Normal left ventricular size based on volume index. Concentric LV remodeling. The Ejection Fraction (Perkins's) is measured at 63 %. Left Ventricular diastolic function is indeterminate due to prior heart transplant. However low e' velocities suggest diastolic dysfunction. The LV global strain is: -13.7 %. 3. Normal right ventricular size. Moderate right ventricular hypokinesis. 4. Mild tricuspid regurgitation. The estimated right ventricular systolic pressure is 40 mmHg. 5. The IVC was >2.1 cm and collapsibility <50% (est. RA pressure 15 mmHg). ATTESTATION: I have personally reviewed and interpreted this study without fellow or resident. - DISCLAIMER: The study images and the final report will be retained in the patient chart by the Echo Laboratory for the legally required time period. This chart constitutes the legal record of any testing performed. FINDINGS: Left Ventricle: Normal left ventricular size based on volume index. Concentric LV remodeling. Normal left ventricular systolic function. The Ejection Fraction (Perkins's) is measured at 63 %. Left Ventricular diastolic function is indeterminate due to prior heart transplant. However low e' velocities suggest diastolic dysfunction. The average global longitudinal strain is abnormal. The LV global strain is: -13.7 %. Right Ventricle: Normal right ventricular size. Moderate right ventricular hypokinesis. Left Atrium: The left atrium is normal in size. Right Atrium: The right atrium is normal in size. Mitral Valve: The mean transmitral gradient is: 3 mmHg. Aortic Valve: Normal trileaflet aortic valve. No aortic regurgitation. Tricuspid Valve: Normal tricuspid valve structure. Mild tricuspid regurgitation. The estimated right ventricular systolic pressure is 40 mmHg. Pulmonic Valve: Normal pulmonic valve structure. No pulmonic regurgitation. Pericardium: Normal pericardium without pericardial effusion. Aorta: Normal aortic root. IVC: The IVC was >2.1 cm and collapsibility <50% (est. RA pressure 15 mmHg). Incidental Findings: Status post heart transplant. Endomyocardial biopsy performed without apparent complication. MEASUREMENTS: 2D/MM Value Range Doppler Value Range LVIDd 2D 3.64 cm [ 4.20 - 5.80 ] LVOT Peak Nathan 1.1 m/s [ 0.7 - 1.1 ] LVIDs 2D 2.31 cm [ 2.50 - 4.00 ] LVOT Peak PG 4.84 mmHg IVSd 2D 1.50 cm [ 0.60 - 1.00 ] LVOT Mean PG 3 mmHg LVPWd 2D 1.39 cm [ 0.60 - 1.00 ] LVOT VTI 19.1 cm LV Thickness Ratio 1.1 LVOT Diam 2.10 cm LV FS 2D 36.52 % [ 25.00 - 43.00 ] MV E Peak Nathan 1.4 m/s [ 0.6 - 1.3 ] LV Mass 2D 193.68 g MV A Peak Nathan 0.4 m/s [ 1.0 - 1.2 ] LV Mass Index 2D 96.44 g/m2 MV E/A 3.9 ratio [ 0.8 - 1.5 ] RWT 0.76 MV Peak Nathan 1.3 m/s EDV Mod BP 109.39 ml [ 62.00 - 150.00 ] MV Peak PG 6.76 mmHg LV EDV Index 54.47 ml/m2 MV Mean PG 3 mmHg ESV Mod BP 39.99 ml [ 21.00 - 61.00 ] MV VTI 24.8 cm EF Mod BP 63 % [ 52 - 72 ] MV Decel Time 183.02 msec [ 104.00 - 258.00 ] LV GLS -13.7 % [ -25.0 - -18.0 ] Med E` Nathan 4.3 cm/sec [ 8.0 - 25.0 ] RV Base Dimen 2D 4.0 cm [ 2.5 - 4.2 ] Lat E` Nathan 4.5 cm/sec [ 10.0 - 25.0 ] Average E/E` 31.82 RV S` 3.33 cm/sec TR Peak Nathan 2.9 m/s [ 1.0 - 2.8 ] TR Peak PG 33.6 mmHg Electronically Signed By: Carlos Fairbanks MD 06/17/2025 2:11:38 PM CDT Procedure Note Carlos Fairbanks MD - 06/17/2025 [facility] [address] , [address] [place] [address] Transthoracic Echocardiographic Report Patient Name: GOSIA ZUNIGA W : 1965 (60y 1m) Gender: M Study Date: 06/17/2025 12:25:46 PM Ht(Inch): 72 Wt(Lb): 175.05 BSA: 2.01 Pack Mule Worker: Gemma Sheehan, JASMYNCS, RCCS, ACS Location: I Order Provider:CARLOS FAIRBANKS BMI: 23.74 BP: 133 / 80 Ref Provider: CARLOS FAIRBANKS - PROCEDURES: Echocardiographic Report: Transthoracic complete echo, 2D, spectral andtissue Doppler, color flow Doppler, M-mode. Additional Procedures: Myocardial strain imaging was performed. Biopsymonitoring. Technically difficult study due to: Limited visualization of some cardiacstructures precludes the ability to obtain complete measurements - INDICATIONS: Z94.1 Heart transplant status. CONCLUSIONS: 1. Status post heart transplant. Endomyocardial biopsy performed withoutapparent complication. 2. Normal left ventricular size based on volume index. Concentric LVremodeling. The Ejection Fraction (Perkins's) is measured at 63 %. Left Ventriculardiastolic function is indeterminate due to prior heart transplant. However low e' velocitiessuggest diastolic dysfunction. The LV global strain is: -13.7 %. 3. Normal right ventricular size. Moderate right ventricularhypokinesis. 4. Mild tricuspid regurgitation. The estimated right ventricular systolicpressure is 40 mmHg. 5. The IVC was >2.1 cm and collapsibility <50% (est. RA pressure 15mmHg). ATTESTATION: I have personally reviewed and interpreted this study without fellow orresident. - DISCLAIMER: The study images and the final report will be retained in the patientchart by the Echo Laboratory for the legally required time period. This chart constitutesthe legal record of any testing performed. FINDINGS: Left Ventricle: Normal left ventricular size based on volume index.Concentric LV remodeling. Normal left ventricular systolic function. The EjectionFraction (Perkins's) is measured at 63 %. Left Ventricular diastolic function is indeterminatedue to prior heart transplant. However low e' velocities suggest diastolic dysfunction.The average global longitudinal strain is abnormal. The LV global strain is: -13.7%. Right Ventricle: Normal right ventricular size. Moderate right ventricularhypokinesis. Left Atrium: The left atrium is normal in size. Right Atrium: The right atrium is normal in size. Mitral Valve: The mean transmitral gradient is: 3 mmHg. Aortic Valve: Normal trileaflet aortic valve. No aortic regurgitation. Tricuspid Valve: Normal tricuspid valve structure. Mild tricuspidregurgitation. The estimated right ventricular systolic pressure is 40 mmHg. Pulmonic Valve: Normal pulmonic valve structure. No pulmonicregurgitation. Pericardium: Normal pericardium without pericardial effusion. Aorta: Normal aortic root. IVC: The IVC was >2.1 cm and collapsibility <50% (est. RA pressure 15mmHg). Incidental Findings: Status post heart transplant. Endomyocardial biopsyperformed without apparent complication. MEASUREMENTS: 2D/MM Value Range DopplerValue Range LVIDd 2D 3.64 cm [ 4.20 - 5.80 ] LVOT Peak Vel1.1 m/s [ 0.7 - 1.1 ] LVIDs 2D 2.31 cm [ 2.50 - 4.00 ] LVOT Peak PG4.84 mmHg IVSd 2D 1.50 cm [ 0.60 - 1.00 ] LVOT Mean PG3 mmHg LVPWd 2D 1.39 cm [ 0.60 - 1.00 ] LVOT VTI19.1 cm LV Thickness Ratio 1.1 LVOT Diam2.10 cm LV FS 2D 36.52 % [ 25.00 - 43.00 ] MV E Peak Vel1.4 m/s [ 0.6 - 1.3 ] LV Mass 2D 193.68 g MV A Peak Vel0.4 m/s [ 1.0 - 1.2 ] LV Mass Index 2D 96.44 g/m2 MV E/A3.9 ratio [ 0.8 - 1.5 ] RWT 0.76 MV Peak Vel1.3 m/s EDV Mod BP 109.39 ml [ 62.00 - 150.00 ] MV Peak PG6.76 mmHg LV EDV Index 54.47 ml/m2 MV Mean PG3 mmHg ESV Mod BP 39.99 ml [ 21.00 - 61.00 ] MV VTI24.8 cm EF Mod BP 63 % [ 52 - 72 ] MV Decel Jhyv614.02 msec [ 104.00 - 258.00 ] LV GLS -13.7 % [ -25.0 - -18.0 ] Med E` Vel4.3 cm/sec [ 8.0 - 25.0 ] RV Base Dimen 2D 4.0 cm [ 2.5 - 4.2 ] Lat E` Vel4.5 cm/sec [ 10.0 - 25.0 ] Average E/E` 31.82 RV S` 3.33 cm/sec TR Peak Nathan 2.9 m/s [ 1.0 - 2.8 ] TR Peak PG 33.6 mmHg Electronically Signed By: Carlos Fairbanks MD 06/17/2025 2:11:38 PM CDT us Carlos Fairbanks MD CV ECHO PROCEDURES Final Result * ENDOMYOCARDIAL BIOPSY (06/17/2025 1:07 PM CDT) Anatomical Region Laterality Modality X-Ray Angiograph y Impressions 06/18/2025 8:14 AM CDT Borderline normal right atrial pressure Successful endomyocardial biopsy performed without apparent complications. The microscopic results will be issued in a separate report by the pathology department. RECOMMENDATION: Close follow up will be provided by the heart transplant service. Any adjustment in Gosia Zuniga's immunosuppressive regimen will be made based on today's study in conjunction with the remainder of his clinical evaluation. Carlos Fairbanks MD Narrative 06/18/2025 8:14 AM CDT ENDOMYOCARDIAL BIOPSY REPORT - TRANSJUGULAR WITH ECHO GUIDANCE Patient: Gosia Zuniga 1965 Referring: Carlos Fairbanks MD Performing: Carlos Fairbanks MD Fellow: None Patient Clinical Profile: Gosia Zuniga is a 60 y.o. Declined male referred today for endomyocardial biopsy from the transjugular approach for routine surveillance of allograft rejection. Procedure: 1) Consent was obtained 2) The patient was transported to the catheterization bay, prepped, and draped in the usual sterile fashion. 3) Local anesthesia with 1% lidocaine was used. 4) Venous access was obtained in the right internal jugular vein using modified Seldinger technique and micropuncture approach. A 7 Indonesian sheath was secured into place. 5) Endomyocardial biopsy was performed with echocardiographic guidance using a 7 Indonesian bioptome. The bioptome was visualized on the distal third of the interventricular septum with each pass. A total of 3 specimens were obtained and sent to the Pathology Department for processing. 6) Hemostasis - At the conclusion of the case the sheath was removed and manual compression was used to achieve hemostasis. 7) Complications - There were no apparent complications. HEMODYNAMICS: Pre-biopsy: Heart rate: 97 beats per minute Blood pressure: 116/65 mmHg Right atrial pressure: 8 mmHg Post-biopsy: Heart rate: 91 beats per minute Blood pressure: 104/59 mmHg Right atrial pressure: 6 mmHg DIAGNOSTIC us Carlos Fairbanks MD CV CARDIAC CATH PROCEDUR ES Final Result * Surgical pathology (06/17/2025 11:37 AM CDT) Heart, Biopsy 06/17/2025 11: 37 AM CDT 06/17/2025 1:52 PM CDT Narrative 06/18/2025 11:14 AM CDT EPIC results best viewed via link to PDF [facility] [place] [address] Note to Patients: This report may contain a detailed description of human tissue sent by a health care provider to the laboratory for pathologic evaluation. The content of this report is essential for diagnosis and may provide important critical findings. This information may be unfamiliar to patients to review without a medical professional present. It is advised that the patient review this report in the presence of a health care provider who can answer questions and explain the details. SURGICAL PATHOLOGY REPORT FINAL Patient Name: GOSIA ZUNIGA Gender: M : 1965 (Age: 60) Address: [address] [place] [id number] Hospital #: [id number] Taken:06/17/2025 Received:06/17/2025 Reported: 06/18/2025 Patient Type: [facility] SPECIMEN Service: UNKNOWN Location: Physician(s): Kalin Byrne M.D. Diagnosis: A. Heart, allograft, endomyocardial biopsy - No evidence of acute cellular rejection (ISHLT grade 0R) - No histologic features suggestive of antibody mediated rejection clma/06/18/2025 07:52 By this signature, I attest that the above diagnosis is based upon my personal examination of the slides(and/or other material indicated in the diagnosis). Jose L Friedman MD PhD Report Electronically Reviewed and Signed Out By Jose L Friedman MD PhD 06/18/2025 11:14:09 Dante Llamas D.O. History: The patient is a 60-year-old man presenting with heart replaced by transplant. Operative procedure: Endomyocardial biopsy. Specimen(s) Received: A: Endomyocardial biopsy Gross Description: Received in formalin, labeled with the patient s identifiers and endomyocardial biopsy and consists of five brown fragment(s) of soft tissue measuring 0.1-0.4 cm each in greatest dimension. Filtered and stained with eosin. The smallest fragments may not survive processing. Labeled A1. Jar 0. sxst/06/17/2025 14:17 PA(s): Yasemin Fisher By this signature, I attest that the above diagnosis is based upon my personal examination of the slides(and/or other material). Addenda/Procedures The performance characteristics of some immunohistochemical stains, fluorescence in-situ hybridization tests and immunophenotyping by flow cytometry cited in this report (if any) were determined by the Surgical Pathology and Flow Cytometry Departments at [facility] as part of an ongoing quality lead program and in compliance with federally mandated regulations drawn from the Clinical Laboratory Improvement Act of 1988 (CLIA '88). Some of these tests rely on the use of analyte specific reagents and are subject to specific labeling requirements by the US Food and Drug Administration. Such diagnostic tests may only be performed in a facility that is certified by the Department of Health and Human Services as a high complexity laboratory under CLIA '88. The FDA has determined that such clearance or approval is not necessary. This test is used for clinical purposes. It should not be regarded as investigational or for research. Nevertheless, federal rules concerning the medical use of analyte specific reagents require that the following disclaimer be attached to the report: This test was developed and its performance characteristics determined by the Surgical Pathology and Flow Cytometry Departments of [facility]. It has not been cleared or approved by the U. S. Food and Drug Administration. IMAGES AND SCANNED DOCUMENTS, IF INCLUDED, ONLY VIEWABLE IN PDF VERSION OF REPORT us Carlos Fairbanks MD LAB PATHOLOGY ORDERABLES Final Result * (ABNORMAL) Glucose, random (Outreach) (06/17/2025 11:30 AM CDT) Glucose 69(L) 70 - 199 mg/dL Comment: Interpretive Data Fasting glucose >/= 126 mg/dl is diagnostic for diabetes. Fasting is defined as no caloric intake for at least 8 hours. Fasting glucose between 100 mg/dl to 125 mg/dl is diagnostic of prediabetes. In a patient with classic symptoms of hyperglycemia or hyperglycemic crisis, a random glucose >/= 200 mg/dl is diagnostic for diabetes. In the absence of unequivocal hyperglycemia, results should be confirmed by repeat testing. The classification and Diagnosis of Diabetes Diabetes Care 2021; 46: S19-S40. Current interpretive data was last revised 2022. Blood 06/17/2025 11:3 0 AM CDT 06/17/2025 2:24 PM CDT us Carlos Fairbanks MD LAB BLOOD ORDERABLES Fin al Result DULCE MARIA [facility] [place] [address] * (ABNORMAL) eGFR (06/17/2025 11:30 AM CDT) eGFR 31(L) >=60 mL/min/1. 73 m2 Comment: Interpretive Data Reference Interval Normal >/= 90 mL/min/1.73m2 Mildly decreased* 60 - 89 mL/min/1.73m2 Mildly to moderately decreased 45 - 59 mL/min/1.73m2 Moderately to severely decreased 30 - 44 mL/min/1.73m2 Severely decreased 15 - 29 mL/min/1.73m2 Kidney Failure < 15 mL/min/1.73m2 *Relative to young adult level Estimated glomerular filtration rate is determined by the 2020 CKD-EPI equation recommended by the National Kidney Foundation (A Unifying Approach to GFR Estimation: Recommendations of the NKF-ASK Task Force on Reassessing the Inclusion of Race in Diagnosing Kidney Disease, ELISHAN 2020). The CKD-EPI equation should not be used for patients with unstable renal function and has not been validated in children and those over 70. Current interpretive data was last reviewed 2021. Blood 06/17/2025 11:3 0 AM CDT 06/17/2025 2:31 PM CDT us Carlos Fairbanks MD LAB BLOOD ORDERABLES Fin al Result Performing Organization Address [facility] Co de Phone Number [facility] [place] [address] * (ABNORMAL) Comprehensive metabolic panel, without glucose (Outreach) (06/17/2025 11:30 AM CDT) Pathologist [facility] Sodium 136 135 - 145 mmol/L Potassium, pl 3.8 3.3 - 4.9 mmol/L [facility] Chloride 100 97 - 110 mmol/L [facility] CO2 22 22 - 32 mmol/[facility] Anion gap 14 2 - 15 mmol/L [facility] BUN 65(H) 6 - 25 mg/dL [facility] Creatinine 2.33(H) 0.80 - 1.30 mg/dL [facility] Calcium 8.9 8.5 - 10.3 mg/dL [facility] Protein, pl 6.0(L) 6.5 - 8.5 g/dL [facility] Albumin 3.6 3.5 - 5.0 g/dL [facility] Bilirubin, total 0.4 0.1 - 1.2 mg/dL [facility] Alk phos 190(H) 40 - 130 Units/L [facility] AST 14 10 - 50 Units/L [facility] ALT 30 7 - 55 Units/L [facility] Blood 06/17/2025 11:3 0 AM CDT 06/17/2025 2:24 PM CDT us Carlos Fairbanks MD LAB BLOOD ORDERABLES Fin al Result Performing Organization Address [facility]/ZIP Co de Phone Number [facility] [place] [address] * Tacrolimus level trough (06/13/2025 4:45 PM CDT) SCRIBED Tacrolimus, trough 7.8 5.0 - 20.0 TXP NO LAB FOUND Blood 06/13/2025 4:45 PM CDT us Carlos Fairbanks MD LAB BLOOD ORDERABLES Fin al Result TXP NO LAB FOUND * (ABNORMAL) Comprehensive metabolic panel (06/13/2025) SCRIBED Sodium 134(A) 136 - 145 mmol/L TXP NO LAB FOUND SCRIBED Potassium 4.7 3.5 - 5.1 mmol/L TXP NO LAB FOUND SCRIBED Chloride 102 98 - 107 mmol/L TXP NO LAB FOUND SCRIBED Carbon Dioxide 21.4 21.0 - 32.0 mmol/L TXP NO LAB FOUND SCRIBED Anion Gap 10.6 5.0 - 15.0 mmol/L TXP NO LAB FOUND SCRIBED Urea Nitrogen (BUN) 66(A) 6 - 24 mg/dl TXP NO LAB FOUND SCRIBED Creatinine 1.80(A) 0.70 - 1.30 mg/dl TXP NO LAB FOUND SCRIBED Glucose 199(A) 70 - 99 mg/dl TXP NO LAB FOUND SCRIBED Calcium 9.1 8.4 - 10.5 mg/dl TXP NO LAB FOUND SCRIBED Bilirubin 0.5 0.2 - 1.0 mg/dl TXP NO LAB FOUND SCRIBED Plasma Protein 5.7(A) 6.4 - 8.2 g/dl TXP NO LAB FOUND SCRIBED Albumin 2.6(A) 3.4 - 5.0 g/dl TXP NO LAB FOUND SCRIBED Alkaline Phosphatase 250(A) 45 - 115 Units/L TXP NO LAB FOUND SCRIBED Alanine Transaminase (ALT) 44 16 - 63 Units/L TXP NO LAB FOUND SCRIBED Aspartate Transaminase (AST) 16 15 - 37 Units/L TXP NO LAB FOUND SCRIBED eGFR in NonAfrican Cypriot 42 >89 TXP NO LAB FOUND Osmolality 303 n/a mOsmol/kg TXP NO LAB FOUND Blood 06/13/2025 us Carlos Fairbanks MD LAB BLOOD ORDERABLES Fin al Result TXP NO LAB FOUND * ECG 12-LEAD (06/12/2025 7:05 PM CDT) [...] in the ED Danny Rae MD 06/12/25 190 us Yossi Hodges MD ECG ORDERABLES Final Resu lt Performing Organization Address City/[facility]/ZIP Co de Phone Number [facility] * POCT glucose (06/11/2025 12:04 PM CDT) Glucose, POC 189 70 - 199 mg/dL Blood 06/11/2025 12:0 4 PM CDT 06/11/2025 12:04 PM CDT Addy Tapia MD LAB POCT ORDERABLES - DE VICE Final Result Performing Organization Address [facility] Co de Phone Number [facility] [place] [address] * POCT glucose (06/11/2025 7:46 AM CDT) Glucose, POC 103 70 - 199 mg/dL Blood 06/11/2025 7:46 AM CDT 06/11/2025 7:46 AM CDT Addy Tapia MD LAB POCT ORDERABLES - DE VICE Final Result Performing Organization Address [facility] Phone Number [facility] [place] [address] * Potassium, whole blood (06/11/2025 5:14 AM CDT) [facility] Potassium, bld 4.9 3.3 - 4.9 mmol/L Blood 06/11/2025 5:14 AM CDT 06/11/2025 6:27 AM CDT Bar Gamble MD LAB BLOOD ORDERABLES Final R esult Performing Organization Address [facility] Co de Phone Number [facility] [place] [address] * Tacrolimus level trough (06/11/2025 5:14 AM CDT) [facility] Tacrolimus trough 9.2 ng/mL Comment: Interpretive Data Testing performed by liquid chromatography-tandem mass spectrometry. Therapeutic concentrations vary depending on type of transplanted organ and time elapsed since transplant. Typical trough concentrations range from 5-15 ng/mL. This test was developed and its performance characteristics determined by the [facility] Laboratory consistent with CLIA requirements. This test has not been cleared or approved by the US Food and Drug administration. Current interpretive data last reviewed 2020. Blood 06/11/2025 5:14 AM CDT 06/11/2025 6:27 AM CDT Zev Cowart MD PhD LAB BLOOD ORDERABLES Fi nal Result Performing Organization Address City/[facility]/ZIP Co de Phone Number [facility] [place] [address] * (ABNORMAL) POCT glucose (06/10/2025 8:53 PM CDT) [facility] Glucose, POC 218(H) 70 - 199 mg/dL Blood 06/10/2025 8:53 PM CDT 06/10/2025 8:53 PM CDT Addy Tapia MD LAB POCT ORDERABLES - DE VICE Final Result Performing Organization Address [facility] Co de Phone Number [facility] [place] [address] * Antibody identification (06/10/2025 8:34 PM CDT) [facility] Antibody ID 1 Anti-CD38 Comment:Panreactive -CD38 on reagent RBCs reacting with anti-CD38 therapy. DTT treatment removes cell surface CD38 and allows detection of common clinically significant antibodies except those against Dilma antigens. TRANSFUSION 2015;55;[id number] Blood 06/10/2025 8:34 PM CDT 06/10/2025 8:34 PM CDT Dinorah Kahn SWEET P[employer] DISINTEGRATOR LAB BLOOD BANK TEST ORDERAB LES Final Result Performing Organization Address [facility] Co de Phone Number DULCE MARIA [facility] [place] [address] * (ABNORMAL) eGFR (06/10/2025 6:18 PM CDT) eGFR 50(L) >=60 mL/min/1. 73 m2 Comment: Interpretive Data Reference Interval Normal >/= 90 mL/min/1.73m2 Mildly decreased* 60 - 89 mL/min/1.73m2 Mildly to moderately decreased 45 - 59 mL/min/1.73m2 Moderately to severely decreased 30 - 44 mL/min/1.73m2 Severely decreased 15 - 29 mL/min/1.73m2 Kidney Failure < 15 mL/min/1.73m2 *Relative to young adult level Estimated glomerular filtration rate is determined by the 2020 CKD-EPI equation recommended by the National Kidney Foundation (A Unifying Approach to GFR Estimation: Recommendations of the NKF-ASK Task Force on Reassessing the Inclusion of Race in Diagnosing Kidney Disease, JASN 2020). The CKD-EPI equation should not be used for patients with unstable renal function and has not been validated in children and those over 70. Current interpretive data was last reviewed 2021. Blood 06/10/2025 6:18 PM CDT 06/10/2025 7:23 PM CDT Libia Suarez SWEET POTATO DISINTEGRATOR LAB BLOOD ORDERABLES Final Re sult Performing Organization Address City/[facility] Co de Phone Number DULCE MARIA [facility] [place] [address] * (ABNORMAL) CBC without differential (06/10/2025 6:18 PM CDT) Pathologist [facility] WBC 10.00(H) 3.80 - 9.90 K/cumm Hgb 7.8(L) 13.0 - 17.5 g/dL [facility] Hct 23.7(L) 38.9 - 50.3 % [facility] Plt 356 150 - 400 K/cumm [facility] [facility] MPV 10.8 9.1 - 12.[address] [facility] RBC 2.84(L) 4.30 - 5.80 M/cumm [facility] MCV 83.5 81.3 - 96.[address] [facility] MCH 27.5 27.1 - 33.[address] [facility] MCHC 32.9 32.3 - 35.7 g/dL [facility] RDW CV 16.3(H) 11.1 - 14.9 % [facility] RDW SD 47.9 35.7 - 48.[address] [facility] NRBC abs 0.00 0.00 - 0.01 K/cumm [facility] Blood 06/10/2025 6:18 PM CDT 06/10/2025 7:22 PM CDT Dinorah Kahn NP LAB BLOOD ORDERABLES Final Result Performing Organization Address City/[facility]/ZIP Co de Phone Number [facility] [place] [address] * (ABNORMAL) Type and screen (06/10/2025 6:18 PM CDT) [facility] Poppy, indirect Positive(A) ABO Rh O Positive [facility] Blood 06/10/2025 6:18 PM CDT 06/10/2025 7:02 PM CDT Narrative [facility] - 06/10/2025 8:34 PM CDT Has the patient had Daratumumab or Isatuximab in the past 6 months?->Unknown Dinorah Kahn NP LAB BLOOD BANK TEST ORDERAB LES Final Result [facility] [place] [address] * Phosphorus (06/10/2025 6:18 PM CDT) Pathologist [facility] Phosphorus, pl 3.5 2.3 - 4.5 mg/dL Blood 06/10/2025 6:18 PM CDT 06/10/2025 7:23 PM CDT Libia Suarez SWEET POTATO DISINTEGRATOR LAB BLOOD ORDERABLES Final Re sult Performing Organization Address [facility] Co de Phone Number [facility] [place] [address] * Magnesium (06/10/2025 6:18 PM CDT) Pathologist [facility] Magnesium 2.1 1.4 - 2.5 mg/dL Blood 06/10/2025 6:18 PM CDT 06/10/2025 7:23 PM CDT Dinorah Kahn SWEET POTATO DISINTEGRATOR LAB BLOOD ORDERABLES Final Result Performing Organization Address [facility] de Phone Number [facility] [place] [address] * (ABNORMAL) Hepatic function panel (06/10/2025 6:18 PM CDT) Pathologist [facility] Bilirubin, total 0.5 0.1 - 1.2 mg/dL Bilirubin, direct 0.3 0.1 - 0.3 mg/dL [facility] Protein, pl 6.0(L) 6.5 - 8.5 g/dL [facility] Albumin 3.7 3.5 - 5.0 g/dL [facility] Alk phos 295(H) 40 - 130 Units/L [facility] ALT 50 7 - 55 Units/L [facility] AST 24 10 - 50 Units/L [facility] Blood 06/10/2025 6:18 PM CDT 06/10/2025 7:23 PM CDT Libia Suarez SWEET POTATO DISINTEGRATOR LAB BLOOD ORDERABLES Final Re sult Performing Organization Address [facility] Co de Phone Number [facility] [place] [address] * (ABNORMAL) Basic metabolic panel (06/10/2025 6:18 PM CDT) Sodium 136 135 - 145 mmol/L Potassium, pl 5.1(H) 3.3 - 4.9 mmol/L [facility] Chloride 104 97 - 110 mmol/L [facility] CO2 22 22 - 32 mmol/L [facility] Anion gap 10 2 - 15 mmol/L [facility] BUN 63(H) 6 - 25 mg/dL [facility] Creatinine 1.56(H) 0.80 - 1.30 mg/dL [facility] Glucose 224(H) 70 - 199 mg/dL [facility] Comment: Interpretive Data Fasting glucose >/= 126 mg/dl is diagnostic for diabetes. Fasting is defined as no caloric intake for at least 8 hours. Fasting glucose between 100 mg/dl to 125 mg/dl is diagnostic of prediabetes. In a patient with classic symptoms of hyperglycemia or hyperglycemic crisis, a random glucose >/= 200 mg/dl is diagnostic for diabetes. In the absence of unequivocal hyperglycemia, results should be confirmed by repeat testing. The classification and Diagnosis of Diabetes Diabetes Care 2021; 46: S19-S40. Current interpretive data was last revised 2022. Calcium 9.3 8.5 - 10.3 mg/dL [facility] Blood 06/10/2025 6:18 PM CDT 06/10/2025 7:23 PM CDT Libia Suarez SWEET POTATO DISINTEGRATOR LAB BLOOD ORDERABLES Final Re sult [facility] [place] [address] * POCT glucose (06/10/2025 4:36 PM CDT) Glucose, POC 198 70 - 199 mg/dL Blood 06/10/2025 4:36 PM CDT 06/10/2025 4:36 PM CDT Addy Tapia MD LAB POCT ORDERABLES - DE VICE Final Result Performing Organization Address [facility] Phone Number [facility] [place] [address] * POCT glucose (06/10/2025 11:47 AM CDT) Glucose, POC 146 70 - 199 mg/dL Blood 06/10/2025 11:4 7 AM CDT 06/10/2025 11:47 AM CDT Addy Tapia MD LAB POCT ORDERABLES - DE VICE Final Result Performing Organization Address [facility] Phone Number [facility] [place] [address] * POCT glucose (06/10/2025 7:34 AM CDT) Glucose, POC 96 70 - 199 mg/dL Blood 06/10/2025 7:34 AM CDT 06/10/2025 7:34 AM CDT Addy Tapia MD LAB POCT ORDERABLES - DE VICE Final Result Performing Organization Address [facility] Phone Number [facility] [place] [address] * Potassium, whole blood (06/10/2025 5:01 AM CDT) Potassium, bld 4.9 3.3 - 4.9 mmol/L Blood 06/10/2025 5:01 AM CDT 06/10/2025 5:55 AM CDT Bar Gamble MD LAB BLOOD ORDERABLES Final R esult Performing Organization Address [facility] Co de Phone Number [facility] [place] [address] * Tacrolimus level trough (06/10/2025 4:52 AM CDT) [facility] Tacrolimus trough 8.4 ng/mL Comment: Interpretive Data Testing performed by liquid chromatography-tandem mass spectrometry. Therapeutic concentrations vary depending on type of transplanted organ and time elapsed since transplant. Typical trough concentrations range from 5-15 ng/mL. This test was developed and its performance characteristics determined by the [facility] consistent with CLIA requirements. This test has not been cleared or approved by the US Food and Drug administration. Current interpretive data last reviewed 2020. Blood 06/10/2025 4:52 AM CDT 06/10/2025 6:02 AM CDT Zev Cowart MD PhD LAB BLOOD ORDERABLES Fi nal Result Performing Organization Address City/[facility]/ZIP Co de Phone Number DULCE MAR[place] [facility] [address] * (ABNORMAL) POCT glucose (06/09/2025 7:56 PM CDT) [facility] Glucose, POC 204(H) 70 - 199 mg/dL Blood 06/09/2025 7:56 PM CDT 06/09/2025 7:56 PM CDT Addy Tapia MD LAB POCT ORDERABLES - [place] [address] * (ABNORMAL) Potassium, whole blood (06/09/2025 7:55 PM CDT) [facility] Potassium, bld 5.6(H) 3.3 - 4.9 mmol/L Blood 06/09/2025 7:55 PM CDT 06/09/2025 8:02 PM CDT Bar Gamble MD LAB BLOOD ORDERABLES Final R esult Performing Organization Address [facility] Co de Phone Number DULCE MARIA [facility] [place] [address] * (ABNORMAL) eGFR (06/09/2025 7:49 PM CDT) eGFR 46(L) >=60 mL/min/1. 73 m2 Comment: Interpretive Data Reference Interval Normal >/= 90 mL/min/1.73m2 Mildly decreased* 60 - 89 mL/min/1.73m2 Mildly to moderately decreased 45 - 59 mL/min/1.73m2 Moderately to severely decreased 30 - 44 mL/min/1.73m2 Severely decreased 15 - 29 mL/min/1.73m2 Kidney Failure < 15 mL/min/1.73m2 *Relative to young adult level Estimated glomerular filtration rate is determined by the 2020 CKD-EPI equation recommended by the National Kidney Foundation (A Unifying Approach to GFR Estimation: Recommendations of the NKF-ASK Task Force on Reassessing the Inclusion of Race in Diagnosing Kidney Disease, JASN 2020). The CKD-EPI equation should not be used for patients with unstable renal function and has not been validated in children and those over 70. Current interpretive data was last reviewed 2021. Blood 06/09/2025 7:4 9 PM CDT 06/09/2025 8:11 PM CDT us Libia Suarez SWEET POTATO DISINTEGRATOR LAB BLOOD ORDERABLES Final Re sult Performing Organization Address City/[facility]/ZIP Co de Phone Number [facility] [place] [address] * (ABNORMAL) CBC without differential (06/09/2025 7:49 PM CDT) Pathologist [facility] WBC 10.31(H) 3.80 - 9.90 K/cumm Hgb 7.2(L) 13.0 - 17.5 g/dL [facility] Hct 22.2(L) 38.9 - 50.3 % [facility] Plt 316 150 - 400 K/cumm [facility] MPV 10.5 9.1 - 12.[address] [facility] RBC 2.60(L) 4.30 - 5.80 M/cumm [facility] MCV 85.4 81.3 - 96.[address] [facility] MCH 27.7 27.1 - 33.[address] [facility] MCHC 32.4 32.3 - 35.7 g/dL [facility] RDW CV 16.8(H) 11.1 - 14.9 % [facility] RDW SD 49.4(H) 35.7 - 48.[address] [facility] NRBC abs 0.00 0.00 - 0.01 K/cumm [facility] Blood 06/09/2025 7:49 PM CDT 06/09/2025 8:11 PM CDT Dinorah Kahn SWEET POTATO DISINTEGRATOR LAB BLOOD ORDERABLES Final Result [facility] Department [facility] [place], [place] [id number] * Phosphorus (06/09/2025 7:49 PM CDT) Pathologist [facility] Phosphorus, pl 3.5 2.3 - 4.5 mg/dL Blood 06/09/2025 7:49 PM CDT 06/09/2025 8:11 PM CDT Libia Suarez SWEET POTATO DISINTEGRATOR LAB BLOOD ORDERABLES Final Re sult [facility] [place] [address] * Magnesium (06/09/2025 7:49 PM CDT) Magnesium 1.9 1.4 - 2.5 mg/dL Blood 06/09/2025 7:49 PM CDT 06/09/2025 8:11 PM CDT us Dinorah Kahn SWEET POTATO DISINTEGRATOR LAB BLOOD ORDERABLES Final Result Performing Organization Address [facility] Co de Phone Number [facility] [place] [address] * (ABNORMAL) Hepatic function panel (06/09/2025 7:49 PM CDT) [facility] Bilirubin, total 0.4 0.1 - 1.2 mg/dL Bilirubin, direct 0.2 0.1 - 0.3 mg/dL [facility] Protein, pl 5.6(L) 6.5 - 8.5 g/dL [facility] Albumin 3.4(L) 3.5 - 5.0 g/dL [facility] Alk phos 279(H) 40 - 130 Units/L [facility] ALT 49 7 - 55 Units/L [facility] AST 24 10 - 50 Units/L [facility] Blood 06/09/2025 7:49 PM CDT 06/09/2025 8:11 PM CDT Libia Suarez SWEET POTATO DISINTEGRATOR LAB BLOOD ORDERABLES Final Re sult Performing Organization Address [facility] Co de Phone Number [facility] [place] [address] * (ABNORMAL) Basic metabolic panel (06/09/2025 7:49 PM CDT) [facility] Sodium 135 135 - 145 mmol/L Potassium, pl 5.6(H) 3.3 - 4.9 mmol/L [facility] Chloride 104 97 - 110 mmol/L [facility] CO2 21(L) 22 - 32 mmol/L [facility] Anion gap 10 2 - 15 mmol/L [facility] BUN 61(H) 6 - 25 mg/dL [facility] Creatinine 1.67(H) 0.80 - 1.30 mg/dL [facility] Glucose 202(H) 70 - 199 mg/dL [facility] Comment: Interpretive Data Fasting glucose >/= 126 mg/dl is diagnostic for diabetes. Fasting is defined as no caloric intake for at least 8 hours. Fasting glucose between 100 mg/dl to 125 mg/dl is diagnostic of prediabetes. In a patient with classic symptoms of hyperglycemia or hyperglycemic crisis, a random glucose >/= 200 mg/dl is diagnostic for diabetes. In the absence of unequivocal hyperglycemia, results should be confirmed by repeat testing. The classification and Diagnosis of Diabetes Diabetes Care 2021; 46: S19-S40. Current interpretive data was last revised 2022. Calcium 9.0 8.5 - 10.3 mg/dL [facility] Blood 06/09/2025 7:49 PM CDT 06/09/2025 8:11 PM CDT Libia Suarez NP LAB BLOOD ORDERABLES Final Re sult Performing Organization Address City/[facility]/ZIP Co de Phone Number [facility] [place] [address] * POCT glucose (06/09/2025 4:18 PM CDT) Pathologist [facility] Glucose, POC 189 70 - 199 mg/dL Blood 06/09/2025 4:18 PM CDT 06/09/2025 4:18 PM CDT Addy Tapia MD LAB POCT ORDERABLES - DE VICE Final Result Performing Organization Address City/[facility]/ZIP Co de Phone Number [facility] [place] [address] * (ABNORMAL) eGFR (06/09/2025 2:34 PM CDT) [facility] eGFR 47(L) >=60 mL/min/1. 73 m2 Comment: Interpretive Data Reference Interval Normal >/= 90 mL/min/1.73m2 Mildly decreased* 60 - 89 mL/min/1.73m2 Mildly to moderately decreased 45 - 59 mL/min/1.73m2 Moderately to severely decreased 30 - 44 mL/min/1.73m2 Severely decreased 15 - 29 mL/min/1.73m2 Kidney Failure < 15 mL/min/1.73m2 *Relative to young adult level Estimated glomerular filtration rate is determined by the 2020 CKD-EPI equation recommended by the National Kidney Foundation (A Unifying Approach to GFR Estimation: Recommendations of the NKF-ASK Task Force on Reassessing the Inclusion of Race in Diagnosing Kidney Disease, JASN 2020). The CKD-EPI equation should not be used for patients with unstable renal function and has not been validated in children and those over 70. Current interpretive data was last reviewed 2021. Blood 06/09/2025 2:34 PM CDT 06/09/2025 3:24 PM CDT us Libia Suarez SWEET POTATO DISINTEGRATOR LAB BLOOD ORDERABLES Final Re sult [facility] [place] [address] * (ABNORMAL) Comprehensive metabolic panel (06/09/2025 2:34 PM CDT) [facility] Sodium 137 135 - 145 mmol/L Potassium, pl 5.6(H) 3.3 - 4.9 mmol/L [facility] Chloride 105 97 - 110 mmol/L [facility] CO2 22 22 - 32 mmol/L [facility] Anion gap 10 2 - 15 mmol/L [facility] BUN 63(H) 6 - 25 mg/dL [facility] Creatinine 1.64(H) 0.80 - 1.30 mg/dL [facility] Glucose 147 70 - 199 mg/dL [facility] Comment: Interpretive Data Fasting glucose >/= 126 mg/dl is diagnostic for diabetes. Fasting is defined as no caloric intake for at least 8 hours. Fasting glucose between 100 mg/dl to 125 mg/dl is diagnostic of prediabetes. In a patient with classic symptoms of hyperglycemia or hyperglycemic crisis, a random glucose >/= 200 mg/dl is diagnostic for diabetes. In the absence of unequivocal hyperglycemia, results should be confirmed by repeat testing. The classification and Diagnosis of Diabetes Diabetes Care 202; 46: S19-S40. Current interpretive data was last revised 2022. Calcium 9.3 8.5 - 10.3 mg/dL [facility] Bilirubin, total 0.4 0.1 - 1.2 mg/dL [facility] Protein, pl 5.7(L) 6.5 - 8.5 g/dL [facility] Albumin 3.5 3.5 - 5.0 g/dL [facility] Alk phos 277(H) 40 - 130 Units/L [facility] ALT 47 7 - 55 Units/[facility] 20 10 - 50 Units/L [facility] Blood 06/09/2025 2:34 PM CDT 06/09/2025 3:24 PM CDT Libia Suarez NP LAB BLOOD ORDERABLES Final Re sult Performing Organization Address [facility]/ZIP Co de Phone Number [facility] [place] [address] * POCT glucose (06/09/2025 11:42 AM CDT) Glucose, POC 108 70 - 199 mg/dL Blood 06/09/2025 11:4 2 AM CDT 06/09/2025 11:42 AM CDT Addy Tapia MD LAB POCT ORDERABLES - DE VICE Final Result [facility] [place] [address] * POCT glucose (06/09/2025 7:46 AM CDT) Glucose, POC 106 70 - 199 mg/dL Blood 06/09/2025 7:46 AM CDT 06/09/2025 7:46 AM CDT Addy Tapia MD LAB POCT ORDERABLES - DE VICE Final Result Performing Organization Address [facility] Co de Phone Number [facility] [place] [address] * Potassium, whole blood (06/09/2025 5:19 AM CDT) Pathologist [facility] Potassium, bld 4.9 3.3 - 4.9 mmol/L Blood 06/09/2025 5:19 AM CDT 06/09/2025 5:34 AM CDT Bar Gamble MD LAB BLOOD ORDERABLES Final R esult Performing Organization Address [facility] Co de Phone Number [facility] [place] [address] * Tacrolimus level trough (06/09/2025 5:19 AM CDT) [facility] Tacrolimus trough 8.2 ng/mL Comment: Interpretive Data Testing performed by liquid chromatography-tandem mass spectrometry. Therapeutic concentrations vary depending on type of transplanted organ and time elapsed since transplant. Typical trough concentrations range from 5-15 ng/mL. This test was developed and its performance characteristics determined by the [facility] consistent with CLIA requirements. This test has not been cleared or approved by the US Food and Drug administration. Current interpretive data last reviewed 2020. Blood 06/09/2025 5:19 AM CDT 06/09/2025 5:37 AM CDT us Zev Cowart MD PhD LAB BLOOD ORDERABLES Fi nal Result Performing Organization Address [facility] Co de Phone Number [facility] [place] [address] * (ABNORMAL) eGFR (06/08/2025 8:53 PM CDT) Pathologist [facility] eGFR 47(L) >=60 mL/min/1. 73 m2 Comment: Interpretive Data Reference Interval Normal >/= 90 mL/min/1.73m2 Mildly decreased* 60 - 89 mL/min/1.73m2 Mildly to moderately decreased 45 - 59 mL/min/1.73m2 Moderately to severely decreased 30 - 44 mL/min/1.73m2 Severely decreased 15 - 29 mL/min/1.73m2 Kidney Failure < 15 mL/min/1.73m2 *Relative to young adult level Estimated glomerular filtration rate is determined by the 2020 CKD-EPI equation recommended by the National Kidney Foundation (A Unifying Approach to GFR Estimation: Recommendations of the NKF-ASK Task Force on Reassessing the Inclusion of Race in Diagnosing Kidney Disease, JASN 2020). The CKD-EPI equation should not be used for patients with unstable renal function and has not been validated in children and those over 70. Current interpretive data was last reviewed 2021. Blood 06/08/2025 8:53 PM CDT 06/08/2025 9:41 PM CDT Libia Suarez SWEET POTATO DISINTEGRATOR LAB BLOOD ORDERABLES Final Re sult [facility] [place] [address] * (ABNORMAL) CBC without differential (06/08/2025 8:53 PM CDT) WBC 10.14(H) 3.80 - 9.90 K/cumm Hgb 7.5(L) 13.0 - 17.5 g/dL [facility] Hct 23.4(L) 38.9 - 50.3 % [facility] Plt 343 150 - 400 K/cumm [facility] MPV 11.0 9.1 - 12.[address] [facility] RBC 2.77(L) 4.30 - 5.80 M/cumm [facility] MCV 84.5 81.3 - 96.[address] [facility] MCH 27.1 27.1 - 33.[address] [facility] MCHC 32.1(L) 32.3 - 35.7 g/dL [facility] RDW CV 16.8(H) 11.1 - 14.9 % [facility] RDW SD 48.9(H) 35.7 - 48.[address] [facility] NRBC abs 0.00 0.00 - 0.01 K/cumm [facility] Blood 06/08/2025 8:53 PM CDT 06/08/2025 9:41 PM CDT Dinorah Kahn NP LAB BLOOD ORDERABLES Final Result Performing Organization Address City/[facility] Co de Phone Number [facility] [place] [address] * Phosphorus (06/08/2025 8:53 PM CDT) Phosphorus, pl 3.3 2.3 - 4.5 mg/dL Blood 06/08/2025 8:53 PM CDT 06/08/2025 9:41 PM CDT Libia Suarez SWEET POTATO DISINTEGRATOR LAB BLOOD ORDERABLES Final Re sult Performing Organization Address [facility] Co de Phone Number [facility] [place] [address] * Magnesium (06/08/2025 8:53 PM CDT) Magnesium 2.2 1.4 - 2.5 mg/dL Blood 06/08/2025 8:53 PM CDT 06/08/2025 9:41 PM CDT Dinorah Kahn NP LAB BLOOD ORDERABLES Final Result Performing Organization Address [facility] Co de Phone Number [facility] [place] [address] * (ABNORMAL) Hepatic function panel (06/08/2025 8:53 PM CDT) Bilirubin, total 0.3 0.1 - 1.2 mg/dL Bilirubin, direct 0.2 0.1 - 0.3 mg/dL [facility] Protein, pl 5.9(L) 6.5 - 8.5 g/dL [facility] Albumin 3.6 3.5 - 5.0 g/dL [facility] Alk phos 305(H) 40 - 130 Units/L [facility] ALT 51 7 - 55 Units/L [facility] AST 23 10 - 50 Units/L [facility] Blood 06/08/2025 8:53 PM CDT 06/08/2025 9:41 PM CDT us Libia Suarez SWEET POTATO DISINTEGRATOR LAB BLOOD ORDERABLES Final Re sult [facility] [place] [address] * (ABNORMAL) Basic metabolic panel (06/08/2025 8:53 PM CDT) Pathologist [facility] Sodium 136 135 - 145 mmol/L Potassium, pl 5.8(H) 3.3 - 4.9 mmol/L [facility] Chloride 106 97 - 110 mmol/L [facility] CO2 21(L) 22 - 32 mmol/L [facility] Anion gap 9 2 - 15 mmol/L [facility] BUN 60(H) 6 - 25 mg/dL [facility] Creatinine 1.64(H) 0.80 - 1.30 mg/dL [facility] Glucose 258(H) 70 - 199 mg/dL [facility] Comment: Interpretive Data Fasting glucose >/= 126 mg/dl is diagnostic for diabetes. Fasting is defined as no caloric intake for at least 8 hours. Fasting glucose between 100 mg/dl to 125 mg/dl is diagnostic of prediabetes. In a patient with classic symptoms of hyperglycemia or hyperglycemic crisis, a random glucose >/= 200 mg/dl is diagnostic for diabetes. In the absence of unequivocal hyperglycemia, results should be confirmed by repeat testing. The classification and Diagnosis of Diabetes Diabetes Care 2021; 46: S19-S40. Current interpretive data was last revised 2022. Calcium 9.2 8.5 - 10.3 mg/dL [facility] Blood 06/08/2025 8:53 PM CDT 06/08/2025 9:41 PM CDT Libia Suarez NP LAB BLOOD ORDERABLES Final Re sult Performing Organization Address [facility]/ZIP Co de Phone Number [facility] [place] [address] * (ABNORMAL) POCT glucose (06/08/2025 7:57 PM CDT) Glucose, POC 260(H) 70 - 199 mg/dL Blood 06/08/2025 7:57 PM CDT 06/08/2025 7:57 PM CDT Addy Tapia MD LAB POCT ORDERABLES - DE VICE Final Result Performing Organization Address [facility] Co de Phone Number [facility] [place] [address] * (ABNORMAL) POCT glucose (06/08/2025 5:15 PM CDT) Glucose, POC 216(H) 70 - 199 mg/dL Blood 06/08/2025 5:15 PM CDT 06/08/2025 5:15 PM CDT Addy Tapia MD LAB POCT ORDERABLES - DE VICE Final Result Performing Organization Address [facility] Co de Phone Number [facility] [place] [address] * XR Chest PA Lateral 2 Views (06/08/2025 3:52 PM CDT) Anatomical Region Laterality Modality Body, Chest N/A Computed Radiogr aphy 06/08/2025 9:59 PM CDT Impressions 06/08/2025 9:59 PM CDT A right internal jugular central venous catheter has been removed in the interval. Sternal plates remain aligned. There are unchanged small bilateral pleural effusions with mild bibasilar atelectasis. No pneumothorax is identified. The cardiomediastinal silhouette is unchanged. Electronically signed by: Raman Saavedra M.D. Narrative 06/08/2025 9:59 PM CDT EXAMINATION: XR CHEST PA LATERAL 2 VIEWS COMPARISON: 06/05/2025 2:47 PM Procedure Note Raman Saavedra MD PhD - 06/08/2025 EXAMINATION: XR CHEST PA LATERAL 2 VIEWS COMPARISON: 06/05/2025 2:47 PM IMPRESSION: A right internal jugular central venous catheter has been removed in the interval. Sternal plates remain aligned. There are unchanged small bilateral pleural effusions with mild bibasilar atelectasis. No pneumothorax is identified. The cardiomediastinal silhouette is unchanged. Electronically signed by: Raman Saavedra M.D. Libia Suarez SWEET POTATO DISINTEGRATOR IMG XR PROCEDURES Final Resul t * POCT glucose (06/08/2025 12:12 PM CDT) Glucose, POC 194 70 - 199 mg/dL Blood 06/08/2025 12:1 2 PM CDT 06/08/2025 12:12 PM CDT Result [facility] Addy Tapia MD LAB POCT ORDERABLES - DE VICE Final Result [facility] [place] [address] * POCT glucose (06/08/2025 8:04 AM CDT) Glucose, POC 113 70 - 199 mg/dL Blood 06/08/2025 8:04 AM CDT 06/08/2025 8:04 AM CDT Addy Tapia MD LAB POCT ORDERABLES - DE VICE Final Result Performing Organization Address [facility] Co de Phone Number [facility] [place] [address] * Tacrolimus level trough (06/08/2025 5:50 AM CDT) Pathologist [facility] Tacrolimus trough 7.3 ng/mL Comment: Interpretive Data Testing performed by liquid chromatography-tandem mass spectrometry. Therapeutic concentrations vary depending on type of transplanted organ and time elapsed since transplant. Typical trough concentrations range from 5-15 ng/mL. This test was developed and its performance characteristics determined by the [facility] consistent with CLIA requirements. This test has not been cleared or approved by the US Food and Drug administration. Current interpretive data last reviewed 2020. Blood 06/08/2025 5:50 AM CDT 06/08/2025 6:33 AM CDT Zev Cowart MD PhD LAB BLOOD ORDERABLES Fi nal Result Performing Organization Address [facility] Co de Phone Number [facility] [place] [address] * Antibody identification (06/07/2025 11:33 PM CDT) [facility] Antibody ID 1 Anti-CD38 Comment:Panreactive -CD38 on reagent RBCs reacting with anti-CD38 therapy. DTT treatment removes cell surface CD38 and allows detection of common clinically significant antibodies except those against [place] antigens. TRANSFUSION 2015;55;[id number] Blood 06/07/2025 11:3 3 PM CDT 06/07/2025 11:33 PM CDT Dinorah Kahn NP LAB BLOOD BANK TEST ORDERAB LES Final Result Performing Organization Address [facility] Co de Phone Number [facility] [place] [address] * (ABNORMAL) eGFR (06/07/2025 9:26 PM CDT) [facility] eGFR 50(L) >=60 mL/min/1. 73 m2 Comment: Interpretive Data Reference Interval Normal >/= 90 mL/min/1.73m2 Mildly decreased* 60 - 89 mL/min/1.73m2 Mildly to moderately decreased 45 - 59 mL/min/1.73m2 Moderately to severely decreased 30 - 44 mL/min/1.73m2 Severely decreased 15 - 29 mL/min/1.73m2 Kidney Failure < 15 mL/min/1.73m2 *Relative to young adult level Estimated glomerular filtration rate is determined by the 2020 CKD-EPI equation recommended by the National Kidney Foundation (A Unifying Approach to GFR Estimation: Recommendations of the NKF-ASK Task Force on Reassessing the Inclusion of Race in Diagnosing Kidney Disease, JASN 2020). The CKD-EPI equation should not be used for patients with unstable renal function and has not been validated in children and those over 70. Current interpretive data was last reviewed 2021. Blood 06/07/2025 9:26 PM CDT 06/07/2025 9:53 PM CDT us Libia Suarez SWEET POTATO DISINTEGRATOR LAB BLOOD ORDERABLES Final Re sult [facility] [place] [address] * (ABNORMAL) CBC without differential (06/07/2025 9:26 PM CDT) [facility] WBC 11.29(H) 3.80 - 9.90 K/cumm Hgb 7.2(L) 13.0 - 17.5 g/dL [facility] Hct 22.6(L) 38.9 - 50.3 % [facility] Plt 306 150 - 400 K/cumm [facility] MPV 10.9 9.1 - 12.[address] [facility] RBC 2.65(L) 4.30 - 5.80 M/cumm [facility] MCV 85.3 81.3 - 96.[address] [facility] MCH 27.2 27.1 - 33.[address] [facility] MCHC 31.9(L) 32.3 - 35.7 g/dL [facility] RDW CV 16.5(H) 11.1 - 14.9 % [facility] RDW SD 47.3 35.7 - 48.[address] [facility] NRBC abs 0.00 0.00 - 0.01 K/cumm [facility] Blood 06/07/2025 9:26 PM CDT 06/07/2025 9:53 PM CDT Dinorah Kahn NP LAB BLOOD ORDERABLES Final Result Performing Organization Address [facility] Co de Phone Number [facility] [place] [address] * (ABNORMAL) Type and screen (06/07/2025 9:26 PM CDT) ABO Rh O Positive Poppy, indirect Positive(A) [facility] Blood 06/07/2025 9:26 PM CDT 06/07/2025 10:14 PM CDT Narrative [facility] - 06/07/2025 11:33 PM CDT Has the patient had Daratumumab or Isatuximab in the past 6 months?->Unknown Dniorah Kahn NP LAB BLOOD BANK TEST ORDERAB LES Final Result Performing Organization Address [facility] Co de Phone Number [facility] [place] [address] * Phosphorus (06/07/2025 9:26 PM CDT) Phosphorus, pl 2.9 2.3 - 4.5 mg/dL Blood 06/07/2025 9:26 PM CDT 06/07/2025 9:53 PM CDT Libia Suarez SWEET POTATO DISINTEGRATOR LAB BLOOD ORDERABLES Final Re sult Performing Organization Address [facility]/ZIP Co de Phone Number [facility] [place] [address] * Magnesium (06/07/2025 9:26 PM CDT) [facility] Magnesium 1.8 1.4 - 2.5 mg/dL Blood 06/07/2025 9:26 PM CDT 06/07/2025 9:53 PM CDT Dinorah Kahn SWEET POTATO DISINTEGRATOR LAB BLOOD ORDERABLES Final Result Performing Organization Address [facility] Co de Phone Number [facility] [place] [address] * (ABNORMAL) Hepatic function panel (06/07/2025 9:26 PM CDT) [facility] Bilirubin, total 0.3 0.1 - 1.2 mg/dL Bilirubin, direct 0.2 0.1 - 0.3 mg/dL [facility] Protein, pl 5.5(L) 6.5 - 8.5 g/dL [facility] Albumin 3.5 3.5 - 5.0 g/dL [facility] Alk phos 286(H) 40 - 130 Units/L [facility] ALT 53 7 - 55 Units/L [facility] AST 23 10 - 50 Units/L [facility] Blood 06/07/2025 9:26 PM CDT 06/07/2025 9:53 PM CDT Libia Suarez SWEET POTATO DISINTEGRATOR LAB BLOOD ORDERABLES Final Re sult Performing Organization Address City/[facility]/ZIP [facility] de Phone [facility] [place] [address] * (ABNORMAL) Basic metabolic panel (06/07/2025 9:26 PM CDT) [facility] Sodium 140 135 - 145 mmol/L Potassium, pl 5.8(H) 3.3 - 4.9 mmol/L [facility] Chloride 111(H) 97 - 110 mmol/L [facility] CO2 21(L) 22 - 32 mmol/L [facility] Anion gap 8 2 - 15 mmol/L [facility] BUN 63(H) 6 - 25 mg/dL [facility] Creatinine 1.57(H) 0.80 - 1.30 mg/dL [facility] Glucose 166 70 - 199 mg/dL [facility] Comment: Interpretive Data Fasting glucose >/= 126 mg/dl is diagnostic for diabetes. Fasting is defined as no caloric intake for at least 8 hours. Fasting glucose between 100 mg/dl to 125 mg/dl is diagnostic of prediabetes. In a patient with classic symptoms of hyperglycemia or hyperglycemic crisis, a random glucose >/= 200 mg/dl is diagnostic for diabetes. In the absence of unequivocal hyperglycemia, results should be confirmed by repeat testing. The classification and Diagnosis of Diabetes Diabetes Care 2021; 46: S19-S40. Current interpretive data was last revised 2022. Calcium 9.1 8.5 - 10.3 mg/dL [facility] Blood 06/07/2025 9:26 PM CDT 06/07/2025 9:53 PM CDT us Libia Suarez SWEET POTATO DISINTEGRATOR LAB BLOOD ORDERABLES Final Re sult Performing Organization Address City/[facility]/ZIP Co de Phone Number [facility] [place] [address] * POCT glucose (06/07/2025 8:24 PM CDT) [facility] Signature Glucose, POC 168 70 - 199 mg/dL Blood 06/07/2025 8:24 PM CDT 06/07/2025 8:24 PM CDT Addy Jamar Tapia MD LAB POCT ORDERABLES - DE VICE Final Result Performing Organization Address City/[facility]/ZIP Co de Phone Number [facility] [place] [address] * POCT glucose (06/07/2025 3:59 PM CDT) Glucose, POC 158 70 - 199 mg/dL Blood 06/07/2025 3:59 PM CDT 06/07/2025 3:59 PM CDT Addy Tapia MD LAB POCT ORDERABLES - DE VICE Final Result Performing Organization Address [facility] Co az Phone Number [facility] [place] [address] * (ABNORMAL) POCT glucose (06/07/2025 11:38 AM CDT) Glucose, POC 208(H) 70 - 199 mg/dL Blood 06/07/2025 11:3 8 AM CDT 06/07/2025 11:38 AM CDT Addy Tapia MD LAB POCT ORDERABLES - DE VICE Final Result Performing Organization Address [facility] Phone Number [facility] [place] [address] * POCT glucose (06/07/2025 7:52 AM CDT) Glucose, POC 138 70 - 199 mg/dL Blood 06/07/2025 7:52 AM CDT 06/07/2025 7:52 AM CDT Addy Tapia MD LAB POCT ORDERABLES - DE VICE Final Result Performing Organization Address [facility] Phone Number [facility] [place] [address] * Potassium, whole blood (06/07/2025 5:36 AM CDT) Potassium, bld 4.6 3.3 - 4.9 mmol/L Blood 06/07/2025 5:36 AM CDT 06/07/2025 6:01 AM CDT us Bar Gamble MD LAB BLOOD ORDERABLES Final R esult Performing Organization Address [facility] Co de Phone Number [facility] [place] [address] * Tacrolimus level trough (06/07/2025 5:36 AM CDT) Tacrolimus trough 6.6 ng/mL Comment: Interpretive Data Testing performed by liquid chromatography-tandem mass spectrometry. Therapeutic concentrations vary depending on type of transplanted organ and time elapsed since transplant. Typical trough concentrations range from 5-15 ng/mL. This test was developed and its performance characteristics determined by the [facility] consistent with CLIA requirements. This test has not been cleared or approved by the US Food and Drug administration. Current interpretive data last reviewed 2020. Blood 06/07/2025 5:36 AM CDT 06/07/2025 6:18 AM CDT us Zev Cowart MD PhD LAB BLOOD ORDERABLES Fi nal Result Performing Organization Address [facility] Co de Phone Number [facility] [place] [address] * (ABNORMAL) Potassium, whole blood (06/06/2025 9:52 PM CDT) Potassium, bld 5.1(H) 3.3 - 4.9 mmol/L Blood 06/06/2025 9:52 PM CDT 06/06/2025 10:03 PM CDT Bar Gamble MD LAB BLOOD ORDERABLES Final R esult Performing Organization Address [facility] Co de Phone Number [facility] [place] [address] * (ABNORMAL) CBC without differential (06/06/2025 9:52 PM CDT) WBC 10.35(H) 3.80 - 9.90 K/cumm Hgb 7.6(L) 13.0 - 17.5 g/dL [facility] Hct 23.7(L) 38.9 - 50.3 % [facility] Plt 306 150 - 400 K/cumm [facility] MPV 11.0 9.1 - 12.[address] [facility] RBC 2.83(L) 4.30 - 5.80 M/cumm [facility] MCV 83.7 81.3 - 96.[address] [facility] MCH 26.9(L) 27.1 - 33.[address] [facility] MCHC 32.1(L) 32.3 - 35.7 g/dL [facility] RDW CV 16.6(H) 11.1 - 14.9 % [facility] RDW SD 47.2 35.7 - 48.[address] [facility] NRBC abs 0.00 0.00 - 0.01 K/cumm [facility] Blood 06/06/2025 9:52 PM CDT 06/06/2025 10:05 PM CDT us Chelsy Mckenzie NP LAB BLOOD ORDERABLES Final Resul t Performing Organization Address City/[facility]/ZIP Co de Phone Number [facility] [place] [address] * (ABNORMAL) POCT glucose (06/06/2025 8:10 PM CDT) Glucose, POC 239(H) 70 - 199 mg/dL Blood 06/06/2025 8:10 PM CDT 06/06/2025 8:10 PM CDT us Addy Tapia MD LAB POCT ORDERABLES - DE VICE Final Result Performing Organization Address City/[facility]/ZIP Co de Phone Number [facility] [place] [address] * G6PD qualitative with reflex to quantitative (06/06/2025 8:02 PM CDT) G6PD Normal Normal Comment: Interp data: G6PD activity should be interpreted in the context of a patient's hematocrit. Hematocrit < 20% may lead to a falsely deficient result, while hematocrit > 50% may lead to a falsely normal result. Current interpretive data was last revised on 2020. Blood 06/06/2025 8:02 PM CDT 06/06/2025 8:46 PM CDT us Farida Flores NP LAB BLOOD ORDERABLES Final R esult [facility] [place] [address] * (ABNORMAL) eGFR (06/06/2025 8:02 PM CDT) eGFR 44(L) >=60 mL/min/1. 73 m2 Comment: Interpretive Data Reference Interval Normal >/= 90 mL/min/1.73m2 Mildly decreased* 60 - 89 mL/min/1.73m2 Mildly to moderately decreased 45 - 59 mL/min/1.73m2 Moderately to severely decreased 30 - 44 mL/min/1.73m2 Severely decreased 15 - 29 mL/min/1.73m2 Kidney Failure < 15 mL/min/1.73m2 *Relative to young adult level Estimated glomerular filtration rate is determined by the 2020 CKD-EPI equation recommended by the National Kidney Foundation (A Unifying Approach to GFR Estimation: Recommendations of the NKF-ASK Task Force on Reassessing the Inclusion of Race in Diagnosing Kidney Disease, JASN 202). The CKD-EPI equation should not be used for patients with unstable renal function and has not been validated in children and those over 70. Current interpretive data was last reviewed 2021. Blood 06/06/2025 8:02 PM CDT 06/06/2025 8:46 PM CDT Libia Suarez SWEET POTATO DISINTEGRATOR LAB BLOOD ORDERABLES Final Re sult Performing Organization Address [facility] Co de Phone Number [facility] [place] [address] * Immunoglobulin free light chains (06/06/2025 8:02 PM CDT) Solis/Lambda ratio BJ 0.35 0.26 - 1.65 Comment: Interpretive Data The Binding Site FreeLite assay procedure was used. Results from different manufacturers or methods may not be comparable. Serial testing should be performed using the same methods and instrumentation. Current Interpretive Data was last revised on 2024. Solis free light chain BJ 0.39 0.33 - 1.94 mg/dL [facility] Comment: Interpretive Data The Binding Site FreeLite assay procedure was used. Results from different manufacturers or methods may not be comparable. Serial testing should be performed using the same methods and instrumentation. Current Interpretive Data was last revised on 2024. Lambda free light chain BJ 1.13 0.57 - 2.63 mg/dL [facility] Comment: Interpretive Data The Binding Site FreeLite assay procedure was used. Results from different manufacturers or methods may not be comparable. Serial testing should be performed using the same methods and instrumentation. Current Interpretive Data was last revised on 2024. Blood 06/06/2025 8:02 PM CDT 06/06/2025 8:46 PM CDT Farida Flores SWEET POTATO DISINTEGRATOR LAB BLOOD ORDERABLES Final R esult [facility] Department of [place], [place] [id number] * (ABNORMAL) CBC without differential (06/06/2025 8:02 PM CDT) WBC 10.24(H) 3.80 - 9.90 K/cumm Hgb 7.1(L) 13.0 - 17.5 g/dL [facility] Hct 21.5(L) 38.9 - 50.3 % [facility] Plt 300 150 - 400 K/cumm [facility] MPV 10.9 9.1 - 12.[address] [facility] RBC 2.58(L) 4.30 - 5.80 M/cumm [facility] MCV 83.3 81.3 - 96.[address] [facility] MCH 27.5 27.1 - 33.[address] [facility] MCHC 33.0 32.3 - 35.7 g/dL [facility] RDW CV 16.6(H) 11.1 - 14.9 % [facility] RDW SD 47.5 35.7 - 48.[address] [facility] NRBC abs 0.00 0.00 - 0.01 K/cumm [facility] Blood 06/06/2025 8:02 PM CDT 06/06/2025 8:46 PM CDT Dinorah Kahn SWEET POTATO DISINTEGRATOR LAB BLOOD ORDERABLES Final Result [facility] [place] [address] * Phosphorus (06/06/2025 8:02 PM CDT) Phosphorus, pl 3.4 2.3 - 4.5 mg/dL Blood 06/06/2025 8:02 PM CDT 06/06/2025 8:46 PM CDT Libia Suarez SWEET POTATO DISINTEGRATOR LAB BLOOD ORDERABLES Final Re sult [facility] [place] [address] * Magnesium (06/06/2025 8:02 PM CDT) Magnesium 1.8 1.4 - 2.5 mg/dL Blood 06/06/2025 8:02 PM CDT 06/06/2025 8:46 PM CDT Dinorah Kahn SWEET POTATO DISINTEGRATOR LAB BLOOD ORDERABLES Final Result Performing Organization Address [facility]/ZIP Co de Phone Number [facility] [place] [address] * (ABNORMAL) Hepatic function panel (06/06/2025 8:02 PM CDT) Bilirubin, total 0.3 0.1 - 1.2 mg/dL Bilirubin, direct <0.2 0.1 - 0.3 mg/dL [facility] Protein, pl 5.2(L) 6.5 - 8.5 g/dL [facility] Albumin 3.3(L) 3.5 - 5.0 g/dL [facility] Alk phos 282(H) 40 - 130 Units/L [facility] ALT 53 7 - 55 Units/L [facility] AST 19 10 - 50 Units/L [facility] Blood 06/06/2025 8:02 PM CDT 06/06/2025 8:46 PM CDT Libia Suarez SWEET POTATO DISINTEGRATOR LAB BLOOD ORDERABLES Final Re sult Performing Organization Address [facility] Co de Phone Number [facility] [place] [address] * (ABNORMAL) Basic metabolic panel (06/06/2025 8:02 PM CDT) Sodium 136 135 - 145 mmol/L Potassium, pl 5.5(H) 3.3 - 4.9 mmol/L [facility] Chloride 106 97 - 110 mmol/L [facility] CO2 22 22 - 32 mmol/L [facility] Anion gap 8 2 - 15 mmol/L [facility] BUN 70(H) 6 - 25 mg/dL [facility] Creatinine 1.73(H) 0.80 - 1.30 mg/dL [facility] Glucose 229(H) 70 - 199 mg/dL [facility] Comment: Interpretive Data Fasting glucose >/= 126 mg/dl is diagnostic for diabetes. Fasting is defined as no caloric intake for at least 8 hours. Fasting glucose between 100 mg/dl to 125 mg/dl is diagnostic of prediabetes. In a patient with classic symptoms of hyperglycemia or hyperglycemic crisis, a random glucose >/= 200 mg/dl is diagnostic for diabetes. In the absence of unequivocal hyperglycemia, results should be confirmed by repeat testing. The classification and Diagnosis of Diabetes Diabetes Care 2021; 46: S19-S40. Current interpretive data was last revised 2022. Calcium 8.7 8.5 - 10.3 mg/dL [facility] Blood 06/06/2025 8:02 PM CDT 06/06/2025 8:46 PM CDT Libia Suarez NP LAB BLOOD ORDERABLES Final Re sult Performing Organization Address City/[facility]/ZIP Co de Phone Number [facility] [place] [address] * (ABNORMAL) POCT glucose (06/06/2025 4:10 PM CDT) Glucose, POC 200(H) 70 - 199 mg/dL Blood 06/06/2025 4:10 PM CDT 06/06/2025 4:10 PM CDT Addy Tapia MD LAB POCT ORDERABLES - DE VICE Final Result [facility] [place] [address] * (ABNORMAL) POCT glucose (06/06/2025 12:12 PM CDT) Glucose, POC 211(H) 70 - 199 mg/dL Blood 06/06/2025 12:1 2 PM CDT 06/06/2025 12:12 PM CDT Addy Tapia MD LAB POCT ORDERABLES - DE VICE Final Result Performing Organization Address [facility] Co az Phone Number [facility] [place] [address] * POCT glucose (06/06/2025 7:59 AM CDT) Glucose, POC 143 70 - 199 mg/dL Blood 06/06/2025 7:59 AM CDT 06/06/2025 7:59 AM CDT Addy Tapia MD LAB POCT ORDERABLES - DE VICE Final Result Performing Organization Address [facility] Phone Number [facility] [place] [address] * Potassium, whole blood (06/06/2025 5:07 AM CDT) Potassium, bld 4.5 3.3 - 4.9 mmol/L Blood 06/06/2025 5:07 AM CDT 06/06/2025 5:24 AM CDT Bar Gamble MD LAB BLOOD ORDERABLES Final R esult Performing Organization Address [facility] Co az Phone Number [facility] [place] [address] * Tacrolimus level trough (06/06/2025 5:07 AM CDT) Tacrolimus trough 7.4 ng/mL Comment: Interpretive Data Testing performed by liquid chromatography-tandem mass spectrometry. Therapeutic concentrations vary depending on type of transplanted organ and time elapsed since transplant. Typical trough concentrations range from 5-15 ng/mL. This test was developed and its performance characteristics determined by the [facility] consistent with CLIA requirements. This test has not been cleared or approved by the US Food and Drug administration. Current interpretive data last reviewed 2020. Blood 06/06/2025 5:07 AM CDT 06/06/2025 5:31 AM CDT us Zev Cowart MD PhD LAB BLOOD ORDERABLES Fi nal Result Performing Organization Address City/[facility]/ZIP Co de Phone Number [facility] [place] [address] * (ABNORMAL) Potassium, whole blood (06/05/2025 10:09 PM CDT) Potassium, bld 5.2(H) 3.3 - 4.9 mmol/L Blood 06/05/2025 10:0 9 PM CDT 06/05/2025 10:22 PM CDT us Bar Gamble MD LAB BLOOD ORDERABLES Final R esult Performing Organization Address [facility] Co de Phone Number [facility] [place] [address] * (ABNORMAL) eGFR (06/05/2025 10:02 PM CDT) eGFR 47(L) >=60 mL/min/1. 73 m2 Comment: Interpretive Data Reference Interval Normal >/= 90 mL/min/1.73m2 Mildly decreased* 60 - 89 mL/min/1.73m2 Mildly to moderately decreased 45 - 59 mL/min/1.73m2 Moderately to severely decreased 30 - 44 mL/min/1.73m2 Severely decreased 15 - 29 mL/min/1.73m2 Kidney Failure < 15 mL/min/1.73m2 *Relative to young adult level Estimated glomerular filtration rate is determined by the 2020 CKD-EPI equation recommended by the National Kidney Foundation (A Unifying Approach to GFR Estimation: Recommendations of the NKF-ASK Task Force on Reassessing the Inclusion of Race in Diagnosing Kidney Disease, JASN 202). The CKD-EPI equation should not be used for patients with unstable renal function and has not been validated in children and those over 70. Current interpretive data was last reviewed 2021. Blood 06/05/2025 10:0 2 PM CDT 06/05/2025 10:29 PM CDT Libia Suarez SWEET POTATO DISINTEGRATOR LAB BLOOD ORDERABLES Final Re sult Performing Organization Address [facility] Co de Phone Number [facility] [place] [address] * (ABNORMAL) CBC without differential (06/05/2025 10:02 PM CDT) WBC 13.52(H) 3.80 - 9.90 K/cumm Hgb 7.7(L) 13.0 - 17.5 g/dL [facility] Hct 23.8(L) 38.9 - 50.3 % [facility] Plt 319 150 - 400 K/cumm [facility] MPV 10.8 9.1 - 12.[address] [facility] RBC 2.87(L) 4.30 - 5.80 M/cumm [facility] MCV 82.9 81.3 - 96.[address] [facility] MCH 26.8(L) 27.1 - 33.[address] [facility] MCHC 32.4 32.3 - 35.7 g/dL [facility] RDW CV 16.4(H) 11.1 - 14.9 % [facility] RDW SD 46.3 35.7 - 48.[address] [facility] NRBC abs 0.00 0.00 - 0.01 K/cumm [facility] Blood 06/05/2025 10:0 2 PM CDT 06/05/2025 10:29 PM CDT Dinorah Kahn SWEET POTATO DISINTEGRATOR LAB BLOOD ORDERABLES Final Result Performing Organization Address City/[facility]/ZIP Co de Phone Number [facility] [place] [address] * Phosphorus (06/05/2025 10:02 PM CDT) Pathologist [facility] Phosphorus, pl 3.4 2.3 - 4.5 mg/dL Blood 06/05/2025 10:0 2 PM CDT 06/05/2025 10:29 PM CDT Libia Suarez SWEET POTATO DISINTEGRATOR LAB BLOOD ORDERABLES Final Re sult Performing Organization Address City/[facility]/ZIP Co de Phone Number [facility] [place] [address] * Magnesium (06/05/2025 10:02 PM CDT) [facility] Magnesium 2.0 1.4 - 2.5 mg/dL Blood 06/05/2025 10:0 2 PM CDT 06/05/2025 10:29 PM CDT Dinorah Kahn SWEET POTATO DISINTEGRATOR LAB BLOOD ORDERABLES Final Result Performing Organization Address [facility] de Phone Number [facility] [place] [address] * (ABNORMAL) Hepatic function panel (06/05/2025 10:02 PM CDT) [facility] Bilirubin, total 0.3 0.1 - 1.2 mg/dL Bilirubin, direct 0.2 0.1 - 0.3 mg/dL [facility] Protein, pl 5.5(L) 6.5 - 8.5 g/dL [facility] Albumin 3.4(L) 3.5 - 5.0 g/dL [facility] Alk phos 317(H) 40 - 130 Units/L [facility] ALT 60(H) 7 - 55 Units/L [facility] AST 25 10 - 50 Units/L [facility] Blood 06/05/2025 10:0 2 PM CDT 06/05/2025 10:29 PM CDT Libia Suarez SWEET POTATO DISINTEGRATOR LAB BLOOD ORDERABLES Final Re sult DULCE MARIA ARANDA [facility] [place] [address] * (ABNORMAL) Basic metabolic panel (06/05/2025 10:02 PM CDT) Sodium 135 135 - 145 mmol/L Potassium, pl 5.5(H) 3.3 - 4.9 mmol/L [facility] Chloride 105 97 - 110 mmol/L [facility] CO2 21(L) 22 - 32 mmol/L [facility] Anion gap 9 2 - 15 mmol/L [facility] BUN 70(H) 6 - 25 mg/dL [facility] Creatinine 1.65(H) 0.80 - 1.30 mg/dL [facility] Glucose 242(H) 70 - 199 mg/dL [facility] Comment: Interpretive Data Fasting glucose >/= 126 mg/dl is diagnostic for diabetes. Fasting is defined as no caloric intake for at least 8 hours. Fasting glucose between 100 mg/dl to 125 mg/dl is diagnostic of prediabetes. In a patient with classic symptoms of hyperglycemia or hyperglycemic crisis, a random glucose >/= 200 mg/dl is diagnostic for diabetes. In the absence of unequivocal hyperglycemia, results should be confirmed by repeat testing. The classification and Diagnosis of Diabetes Diabetes Care 202; 46: S19-S40. Current interpretive data was last revised 2022. Calcium 8.7 8.5 - 10.3 mg/dL [facility] Blood 06/05/2025 10:0 2 PM CDT 06/05/2025 10:29 PM CDT Libia Suarez SWEET POTATO DISINTEGRATOR LAB BLOOD ORDERABLES Final Re sult Performing Organization Address City/[facility]/ZIP Co de Phone Number DULCE MARIA ARANDA [facility] [place] [address] * (ABNORMAL) POCT glucose (06/05/2025 7:54 PM CDT) Glucose, POC 237(H) 70 - 199 mg/dL Blood 06/05/2025 7:54 PM CDT 06/05/2025 7:54 PM CDT Addy Tapia MD LAB POCT ORDERABLES - DE VICE Final Result Performing Organization Address City/[facility] Co de Phone Number [facility] [place] [address] * POCT glucose (06/05/2025 4:10 PM CDT) [facility] Signature Glucose, POC 190 70 - 199 mg/dL Blood 06/05/2025 4:10 PM CDT 06/05/2025 4:10 PM CDT Addy Tapia MD LAB POCT ORDERABLES - DE VICE Final Result Performing Organization Address [facility] Phone Number [facility] [place] [address] * XR Chest 1 View (06/05/2025 3:09 PM CDT) Anatomical Region Laterality Modality Body, Chest N/A Digital Radiogra phy 06/05/2025 3:44 PM CDT Impressions 06/05/2025 3:44 PM CDT Comparison is made to prior study of 06/01/2025 at 9:21 PM. In the interval, no change in bilateral small pleural effusions in this patient post median sternotomy. Right internal jugular catheter overlies superior vena cava. Changes of median sternotomy again seen. There is no pulmonary edema or pneumothorax. The heart size and mediastinal contour are unchanged. Electronically signed by: Kristian Hagan M.D. Narrative 06/05/2025 3:44 PM CDT EXAMINATION: 1 view chest radiograph Procedure Note Kristian Hagan MD - 06/05/2025 EXAMINATION: 1 view chest radiograph IMPRESSION: Comparison is made to prior study of 06/01/2025 at 9:21 PM. In the interval, no change in bilateral small pleural effusions in this patient post median sternotomy. Right internal jugular catheter overlies superior vena cava. Changes of median sternotomy again seen. There is no pulmonary edema or pneumothorax. The heart size and mediastinal contour are unchanged. Electronically signed by: Kristian Hagan M.D. us Sheila Pollard SWEET POTATO DISINTEGRATOR IMG XR PROCEDURES Final R esult * POCT glucose (06/05/2025 1:33 PM CDT) Pathologist [facility] Glucose, POC 138 70 - 199 mg/dL Blood 06/05/2025 1:33 PM CDT 06/05/2025 1:33 PM CDT us Addy Tapia MD LAB POCT ORDERABLES - DE VICE Final Result DULCE MARIA [facility] [place] [address] * TRANSTHORACIC ECHO (TTE) LIMITED/FOLLOW UP W LTD DOPPLER/CF WO CONTRAST (06/05/2025 12:57 PM CDT) [facility] Estimated EF 70-75 % CONS SCIMAGE EF Mod BP 63 % CONS SCIMAGE Anatomical Region Laterality Modality Ultrasound 06/05/2025 12:2 5 PM CDT Narrative 06/05/2025 2:30 PM CDT [facility] [place] [address] Transthoracic Echocardiographic Report Patient Name: GOSIA ZUNIGA W : 1965 (60y 1m) Gender: M Study Date: 06/05/2025 12:25:00 PM Ht(Inch): 72 Wt(Lb): 175.93 BSA: 2.01 Pack Mule Worker: SHAQ Terry Location: [id number] Order Provider: LIBIA SUAREZ Heart Rate: 88 BMI: 23.86 BP: 98 / 57 Ref Provider: LIBIA SUAREZ Fellow: Alex Glass MD PROCEDURES: Echocardiographic Report: Limited transthoracic 2D echo, includes spectral and tissue Doppler, color flow Doppler, and/or M-mode, when performed. Additional Procedures: Myocardial strain imaging was performed. INDICATIONS: Post heart transplant - CONCLUSIONS: 1. S/P OHT. Normal left ventricular size based on volume index. Normal left ventricular systolic function. The Ejection Fraction is visually estimated to be 70-75 %. Left Ventricular diastolic function is indeterminate due to prior heart transplant. The average global longitudinal strain is abnormal. 2. Normal right ventricular size. Moderate right ventricular hypokinesis. 3. Mildly dilated left atrium. 4. Normal tricuspid valve structure. Mild tricuspid regurgitation. 5. Small to moderate pericardial effusion. No echocardiographic evidence to suggest cardiac tamponade. 6. The IVC was >2.1 cm and collapsibility >50%. (est. RA pressure 6-10 mmHg). 7. The estimated pulmonary artery systolic pressure is 33.0 mmHg. ATTESTATION: I have personally reviewed this study with a fellow in a teaching setting and attest to the findings and conclusions. - DISCLAIMER: The study images and the final report will be retained in the patient chart by the Echo Laboratory for the legally required time period. This chart constitutes the legal record of any testing performed. FINDINGS: Left Ventricle: Normal left ventricular size based on volume index. Normal left ventricular systolic function. The Ejection Fraction is visually estimated to be 70-75 %. Left Ventricular diastolic function is indeterminate due to prior heart transplant. The average global longitudinal strain is abnormal. The LV global strain is: -13.5 %. Right Ventricle: Normal right ventricular size. Moderate right ventricular hypokinesis. Left Atrium: Mildly dilated left atrium. Right Atrium: The right atrium is normal in size. Mitral Valve: Normal mitral valve structure. No mitral regurgitation. No stenosis present. Aortic Valve: Normal trileaflet aortic valve. No aortic regurgitation. No aortic valve stenosis. Tricuspid Valve: Normal tricuspid valve structure. Mild tricuspid regurgitation. Pulmonic Valve: The pulmonic valve is not well visualized due to poor acoustic windows. No pulmonic regurgitation. Pericardium: Small to moderate pericardial effusion. No echocardiographic evidence to suggest cardiac tamponade. Aorta: Normal aortic root size at sinuses of Valsalva. IVC: The IVC was >2.1 cm and collapsibility >50%. (est. RA pressure 6-10 mmHg). The estimated RA pressure is 8 mmHg. PASP: The estimated pulmonary artery systolic pressure is 33.0 mmHg. MEASUREMENTS: 2D/MM Value Range Doppler Value Range EDV Mod BP 143.41 ml [ 62.00 - 150.00 ] AV Peak Nathan 1.4 m/s [ 1.0 - 1.7 ] LV EDV Index 71.35 ml/m2 AV Mean PG 4 mmHg ESV Mod BP 53.20 ml [ 21.00 - 61.00 ] AV VTI 22.8 cm EF Mod BP 63 % [ 52 - 72 ] LVOT VTI 21.6 cm Visually Estimated EF 70-75 % LVOT Diam 2.14 cm LV GLS -13.5 % [ -25.0 - -18.0 ] BENY VTI 3.41 cm2 LA Volume Index 36.19 ml/m2 [ 16.00 - 34.00 ] LVOT/AV VTI 0.95 - Dimensionless index (DVI) RV Base Dimen 2D 4.1 cm [ 2.5 - 4.2 ] MV E Peak Nathan 1.2 m/s [ 0.6 - 1.3 ] TAPSE 1.15 cm [ 1.71 - 5.00 ] MV A Peak Nathan 0.2 m/s [ 1.0 - 1.2 ] MV E/A 5.2 ratio [ 0.8 - 1.5 ] Med E` Nathan 4.7 cm/sec [ 8.0 - 25.0 ] Lat E` Nathan 7.3 cm/sec [ 10.0 - 25.0 ] Average E/E` 20.00 RV S` 7.32 cm/sec TR Peak Nathan 2.5 m/s [ 1.0 - 2.8 ] TR Peak PG 25.0 mmHg RA Pressure 8 mmHg RVSP 33.00 mmHg Electronically Signed By: Pranav Moura M.D. 06/05/2025 2:29:56 PM CDT Procedure Note Pranav Moura MD - 06/05/2025 [facility] Cardiac [place] [address] Transthoracic Echocardiographic Report Patient Name: GOSIA ZUNIGA W : 1965 (60y 1m) Gender: M Study Date: 06/05/2025 12:25:00 PM Ht(Inch): 72 Wt(Lb): 175.93 BSA: 2.01 Pack Mule Worker: SHAQ Terry Location: [id number] Order Provider:LIBIA SUAREZ Heart Rate: 88 BMI: 23.86 BP: 98 / 57 Ref Provider: LIBIA SUAREZ Fellow: Alex Glass MD PROCEDURES: Echocardiographic Report: Limited transthoracic 2D echo, includes spectraland tissue Doppler, color flow Doppler, and/or M-mode, when performed. Additional Procedures: Myocardial strain imaging was performed. INDICATIONS: Post heart transplant - CONCLUSIONS: 1. S/P OHT. Normal left ventricular size based on volume index. Normalleft ventricular systolic function. The Ejection Fraction is visually estimated to be 70-75%. Left Ventricular diastolic function is indeterminate due to prior hearttransplant. The average global longitudinal strain is abnormal. 2. Normal right ventricular size. Moderate right ventricularhypokinesis. 3. Mildly dilated left atrium. 4. Normal tricuspid valve structure. Mild tricuspid regurgitation. 5. Small to moderate pericardial effusion. No echocardiographic evidenceto suggest cardiac tamponade. 6. The IVC was >2.1 cm and collapsibility >50%. (est. RA pressure 6-10mmHg). 7. The estimated pulmonary artery systolic pressure is 33.0 mmHg. ATTESTATION: I have personally reviewed this study with a fellow in a teaching settingand attest to the findings and conclusions. - DISCLAIMER: The study images and the final report will be retained in the patientchart by the Echo Laboratory for the legally required time period. This chart constitutesthe legal record of any testing performed. FINDINGS: Left Ventricle: Normal left ventricular size based on volume index. Normalleft ventricular systolic function. The Ejection Fraction is visually estimatedto be 70-75 %. Left Ventricular diastolic function is indeterminate due to prior hearttransplant. The average global longitudinal strain is abnormal. The LV global strain is:-13.5 %. Right Ventricle: Normal right ventricular size. Moderate right ventricularhypokinesis. Left Atrium: Mildly dilated left atrium. Right Atrium: The right atrium is normal in size. Mitral Valve: Normal mitral valve structure. No mitral regurgitation. Nostenosis present. Aortic Valve: Normal trileaflet aortic valve. No aortic regurgitation. Noaortic valve stenosis. Tricuspid Valve: Normal tricuspid valve structure. Mild tricuspidregurgitation. Pulmonic Valve: The pulmonic valve is not well visualized due to pooracoustic windows. No pulmonic regurgitation. Pericardium: Small to moderate pericardial effusion. No echocardiographicevidence to suggest cardiac tamponade. Aorta: Normal aortic root size at sinuses of Valsalva. IVC: The IVC was >2.1 cm and collapsibility >50%. (est. RA pressure 6-10mmHg). The estimated RA pressure is 8 mmHg. PASP: The estimated pulmonary artery systolic pressure is 33.0 mmHg. MEASUREMENTS: 2D/MM Value Range DopplerValue Range EDV Mod BP 143.41 ml [ 62.00 - 150.00 ] AV Peak Vel1.4 m/s [ 1.0 - 1.7 ] LV EDV Index 71.35 ml/m2 AV Mean PG4 mmHg ESV Mod BP 53.20 ml [ 21.00 - 61.00 ] AV VTI22.8 cm EF Mod BP 63 % [ 52 - 72 ] LVOT VTI21.6 cm Visually Estimated EF 70-75 % LVOT Diam2.14 cm LV GLS -13.5 % [ -25.0 - -18.0 ] BENY VTI3.41 cm2 LA Volume Index 36.19 ml/m2 [ 16.00 - 34.00 ] LVOT/AV VTI0.95 - Dimensionless index (DVI) RV Base Dimen 2D 4.1 cm [ 2.5 - 4.2 ] MV E PeakVel 1.2 m/s [ 0.6 - 1.3 ] TAPSE 1.15 cm [ 1.71 - 5.00 ] MV A PeakVel 0.2 m/s [ 1.0 - 1.2 ] MV E/A 5.2 ratio [ 0.8 - 1.5 ] Med E` Nathan 4.7 cm/sec [ 8.0 - 25.0 ] Lat E` Nathan 7.3 cm/sec [ 10.0 - 25.0 ] Average E/E` 20.00 RV S` 7.32 cm/sec TR Peak Nathan 2.5 m/s [ 1.0 - 2.8 ] TR Peak PG 25.0 mmHg RA Pressure 8 mmHg RVSP 33.00 mmHg Electronically Signed By: Pranav Moura M.D. 06/05/2025 2:29:56 PM CDT Libia Suarez SWEET POTATO DISINTEGRATOR CV ECHO PROCEDURES Final Resu lt * POCT glucose (06/05/2025 7:51 AM CDT) Glucose, POC 122 70 - 199 mg/dL Blood 06/05/2025 7:51 AM CDT 06/05/2025 7:51 AM CDT Addy Tapia MD LAB POCT ORDERABLES - DE VICE Final Result Performing Organization Address [facility] Co de Phone Number [facility] [place] [address] * Potassium, whole blood (06/05/2025 4:39 AM CDT) Potassium, bld 4.6 3.3 - 4.9 mmol/L Blood 06/05/2025 4:39 AM CDT 06/05/2025 4:58 AM CDT Bar Gamble MD LAB BLOOD ORDERABLES Final R esult Performing Organization Address [facility] Co de Phone Number [facility] [place] [address] * Tacrolimus level trough (06/05/2025 4:39 AM CDT) Tacrolimus trough 10.3 ng/mL Comment: Interpretive Data Testing performed by liquid chromatography-tandem mass spectrometry. Therapeutic concentrations vary depending on type of transplanted organ and time elapsed since transplant. Typical trough concentrations range from 5-15 ng/mL. This test was developed and its performance characteristics determined by the [facility] consistent with CLIA requirements. This test has not been cleared or approved by the [place] Food and Drug administration. Current interpretive data last reviewed 2020. Blood 06/05/2025 4:39 AM CDT 06/05/2025 4:58 AM CDT us Zev Cowart MD PhD LAB BLOOD ORDERABLES Fi nal Result Performing Organization Address [facility] Co de Phone Number [facility] [place] [address] * (ABNORMAL) Potassium, whole blood (06/04/2025 9:24 PM CDT) Potassium, bld 6.1(H) 3.3 - 4.9 mmol/L Blood 06/04/2025 9:24 PM CDT 06/04/2025 9:38 PM CDT Dinorah Kahn NP LAB BLOOD ORDERABLES Final Result Performing Organization Address [facility] Co de Phone Number [facility] [place] [address] * (ABNORMAL) POCT glucose (06/04/2025 8:57 PM CDT) Pathologist [facility] Glucose, POC 262(H) 70 - 199 mg/dL Blood 06/04/2025 8:57 PM CDT 06/04/2025 8:57 PM CDT Addy Tapia MD LAB POCT ORDERABLES - DE VICE Final Result Performing Organization Address [facility] de Phone Number [facility] [place] [address] * Antibody identification (06/04/2025 8:01 PM CDT) [facility] Antibody ID 1 Anti-CD38 Comment:Panreactive -CD38 on reagent RBCs reacting with anti-CD38 therapy. DTT treatment removes cell surface CD38 and allows detection of common clinically significant antibodies except those against [place] antigens. TRANSFUSION 2015;55;[id number] Blood 06/04/2025 8:01 PM CDT 06/04/2025 8:01 PM CDT Dinorah Kahn NP LAB BLOOD BANK TEST ORDERAB LES Final Result Performing Organization Address [facility] Co de Phone Number [place], [place] [id number] * (ABNORMAL) eGFR (06/04/2025 6:51 PM CDT) [facility] eGFR 43(L) >=60 mL/min/1. 73 m2 Comment: Interpretive Data Reference Interval Normal >/= 90 mL/min/1.73m2 Mildly decreased* 60 - 89 mL/min/1.73m2 Mildly to moderately decreased 45 - 59 mL/min/1.73m2 Moderately to severely decreased 30 - 44 mL/min/1.73m2 Severely decreased 15 - 29 mL/min/1.73m2 Kidney Failure < 15 mL/min/1.73m2 *Relative to young adult level Estimated glomerular filtration rate is determined by the 2020 CKD-EPI equation recommended by the National Kidney Foundation (A Unifying Approach to GFR Estimation: Recommendations of the NKF-ASK Task Force on Reassessing the Inclusion of Race in Diagnosing Kidney Disease, JASN 2020). The CKD-EPI equation should not be used for patients with unstable renal function and has not been validated in children and those over 70. Current interpretive data was last reviewed 2021. Blood 06/04/2025 6:51 PM CDT 06/04/2025 7:13 PM CDT Libia Suarez NP LAB BLOOD ORDERABLES Final Re sult Performing Organization Address City/[facility]/ZIP Co de Phone Number DULCE MARIA [facility] [place] [address] * Critical Result Callback Chemistry (06/04/2025 6:51 PM CDT) Date Notified [id number] Time Notified 1952 DULCE MARIA ARANDA TestName Potassium Plas DULCE MARIA ARANDA Called/Read Back Libia ARANDA Credentials RN DULCE MARIA ARANDA Called By GERARDO HAIR Blood 06/04/2025 6:51 PM CDT 06/04/2025 7:13 PM CDT Liiba Suarez NP LAB BLOOD ORDERABLES Final Re sult DULCE MARIA [facility] [place] [address] * (ABNORMAL) CBC without differential (06/04/2025 6:51 PM CDT) WBC 16.62(H) 3.80 - 9.90 K/cumm Hgb 8.1(L) 13.0 - 17.5 g/dL [facility] Hct 24.8(L) 38.9 - 50.3 % [facility] Plt 297 150 - 400 K/cumm [facility] MPV 10.8 9.1 - 12.[address] [facility] RBC 2.97(L) 4.30 - 5.80 M/cumm [facility] MCV 83.5 81.3 - 96.[address] [facility] MCH 27.3 27.1 - 33.[address] [facility] MCHC 32.7 32.3 - 35.7 g/dL [facility] RDW CV 16.1(H) 11.1 - 14.9 % [facility] RDW SD 46.1 35.7 - 48.[address] [facility] NRBC abs 0.00 0.00 - 0.01 K/cumm [facility] Blood 06/04/2025 6:51 PM CDT 06/04/2025 7:13 PM CDT Dinorah Kahn NP LAB BLOOD ORDERABLES Final Result [facility] [place] [address] * (ABNORMAL) Type and screen (06/04/2025 6:51 PM CDT) Pathologist [facility] ABO Rh O Positive Poppy, indirect Positive(A) [facility] Blood 06/04/2025 6:51 PM CDT 06/04/2025 7:05 PM CDT Narrative [facility] - 06/04/2025 8:02 PM CDT Has the patient had Daratumumab or Isatuximab in the past 6 months?->Unknown Dinorah M. Kronk SWEET POTATO DISINTEGRATOR LAB BLOOD BANK TEST ORDERAB LES Final Result Performing Organization Address [facility] Co de Phone Number [facility] [place] [address] * Phosphorus (06/04/2025 6:51 PM CDT) [facility] Phosphorus, pl 3.2 2.3 - 4.5 mg/dL Blood 06/04/2025 6:51 PM CDT 06/04/2025 7:13 PM CDT Libia Suarez SWEET POTATO DISINTEGRATOR LAB BLOOD ORDERABLES Final Re sult Performing Organization Address [facility] Co de Phone Number [facility] [place] [address] * Magnesium (06/04/2025 6:51 PM CDT) [facility] Magnesium 2.2 1.4 - 2.5 mg/dL Blood 06/04/2025 6:51 PM CDT 06/04/2025 7:13 PM CDT Dinorah Kahn SWEET POTATO DISINTEGRATOR LAB BLOOD ORDERABLES Final Result Performing Organization Address [facility] Co de Phone Number [facility] [place] [address] * (ABNORMAL) Hepatic function panel (06/04/2025 6:51 PM CDT) [facility] Bilirubin, total 0.3 0.1 - 1.2 mg/dL Bilirubin, direct <0.2 0.1 - 0.3 mg/dL [facility] Protein, pl 5.6(L) 6.5 - 8.5 g/dL [facility] Albumin 3.5 3.5 - 5.0 g/dL [facility] Alk phos 297(H) 40 - 130 Units/L [facility] ALT 67(H) 7 - 55 Units/L [facility] AST 28 10 - 50 Units/L [facility] Blood 06/04/2025 6:51 PM CDT 06/04/2025 7:13 PM CDT Libia Suarez SWEET POTATO DISINTEGRATOR LAB BLOOD ORDERABLES Final Re sult DULCE MARIA [facility] [place] [address] * (ABNORMAL) Basic metabolic panel (06/04/2025 6:51 PM CDT) Pathologist [facility] Sodium 138 135 - 145 mmol/L Potassium, pl 6.4(C) 3.3 - 4.9 mmol/L [facility] Chloride 106 97 - 110 mmol/L [facility] CO2 21(L) 22 - 32 mmol/L [facility] Anion gap 11 2 - 15 mmol/L [facility] BUN 66(H) 6 - 25 mg/dL [facility] Creatinine 1.76(H) 0.80 - 1.30 mg/dL [facility] Glucose 279(H) 70 - 199 mg/dL [facility] Comment: Interpretive Data Fasting glucose >/= 126 mg/dl is diagnostic for diabetes. Fasting is defined as no caloric intake for at least 8 hours. Fasting glucose between 100 mg/dl to 125 mg/dl is diagnostic of prediabetes. In a patient with classic symptoms of hyperglycemia or hyperglycemic crisis, a random glucose >/= 200 mg/dl is diagnostic for diabetes. In the absence of unequivocal hyperglycemia, results should be confirmed by repeat testing. The classification and Diagnosis of Diabetes Diabetes Care 2021; 46: S19-S40. Current interpretive data was last revised 2022. Calcium 8.9 8.5 - 10.3 mg/dL [facility] Blood 06/04/2025 6:51 PM CDT 06/04/2025 7:13 PM CDT Libia Suarez SWEET POTATO DISINTEGRATOR LAB BLOOD ORDERABLES Final Re sult Performing Organization Address City/[facility]/ZIP Co de Phone Number DULCE MARIA [facility] [place] [address] * POCT glucose (06/04/2025 4:16 PM CDT) Glucose, POC 195 70 - 199 mg/dL Blood 06/04/2025 4:16 PM CDT 06/04/2025 4:16 PM CDT Addy Tapia MD LAB POCT ORDERABLES - DE VICE Final Result Performing Organization Address [facility] [place] [address] * (ABNORMAL) POCT glucose (06/04/2025 12:15 PM CDT) [facility] Glucose, POC 252(H) 70 - 199 mg/dL Blood 06/04/2025 12:1 5 PM CDT 06/04/2025 12:15 PM CDT Addy Tapia MD LAB POCT ORDERABLES - DE VICE Final Result Performing Organization Address [facility] [place] [address] * POCT glucose (06/04/2025 7:37 AM CDT) [facility] Glucose, POC 111 70 - 199 mg/dL Blood 06/04/2025 7:37 AM CDT 06/04/2025 7:37 AM CDT Addy Tapia MD LAB POCT ORDERABLES - DE VICE Final Result Performing Organization Address [facility] [place] [address] * (ABNORMAL) Potassium, whole blood (06/04/2025 5:16 AM CDT) Potassium, bld 5.1(H) 3.3 - 4.9 mmol/L Blood 06/04/2025 5:16 AM CDT 06/04/2025 5:26 AM CDT us Bar Gamble MD LAB BLOOD ORDERABLES Final R esult Performing Organization Address [facility] Co de Phone Number [facility] [place] [address] * Tacrolimus level trough (06/04/2025 5:16 AM CDT) Pathologist [facility] Tacrolimus trough 8.8 ng/mL Comment: Interpretive Data Testing performed by liquid chromatography-tandem mass spectrometry. Therapeutic concentrations vary depending on type of transplanted organ and time elapsed since transplant. Typical trough concentrations range from 5-15 ng/mL. This test was developed and its performance characteristics determined by the [facility] consistent with CLIA requirements. This test has not been cleared or approved by the US Food and Drug administration. Current interpretive data last reviewed 2020. Blood 06/04/2025 5:16 AM CDT 06/04/2025 5:32 AM CDT us Zev Cowart MD PhD LAB BLOOD ORDERABLES Fi nal Result Performing Organization Address [facility] de Phone Number [facility] [place] [address] * (ABNORMAL) Potassium, whole blood (06/03/2025 10:35 PM CDT) Potassium, bld 5.4(H) 3.3 - 4.9 mmol/L Blood 06/03/2025 10:3 5 PM CDT 06/03/2025 10:41 PM CDT Dinorah Kahn NP LAB BLOOD ORDERABLES Final Result Performing Organization Address [facility] Co de Phone Number [facility] [place] [address] * (ABNORMAL) eGFR (06/03/2025 8:29 PM CDT) [facility] eGFR 43(L) >=60 mL/min/1. 73 m2 Comment: Interpretive Data Reference Interval Normal >/= 90 mL/min/1.73m2 Mildly decreased* 60 - 89 mL/min/1.73m2 Mildly to moderately decreased 45 - 59 mL/min/1.73m2 Moderately to severely decreased 30 - 44 mL/min/1.73m2 Severely decreased 15 - 29 mL/min/1.73m2 Kidney Failure < 15 mL/min/1.73m2 *Relative to young adult level Estimated glomerular filtration rate is determined by the 2020 CKD-EPI equation recommended by the National Kidney Foundation (A Unifying Approach to GFR Estimation: Recommendations of the NKF-ASK Task Force on Reassessing the Inclusion of Race in Diagnosing Kidney Disease, JASN 2020). The CKD-EPI equation should not be used for patients with unstable renal function and has not been validated in children and those over 70. Current interpretive data was last reviewed 2021. Blood 06/03/2025 8:29 PM CDT 06/03/2025 8:49 PM CDT Libia Suarez SWEET POTATO DISINTEGRATOR LAB BLOOD ORDERABLES Final Re sult [facility] [place] [address] * (ABNORMAL) CBC without differential (06/03/2025 8:29 PM CDT) [facility] WBC 12.46(H) 3.80 - 9.90 K/cumm Hgb 7.8(L) 13.0 - 17.5 g/dL [facility] Hct 23.9(L) 38.9 - 50.3 % [facility] Plt 254 150 - 400 K/cumm [facility] MPV 10.8 9.1 - 12.[address] [facility] RBC 2.85(L) 4.30 - 5.80 M/cumm [facility] MCV 83.9 81.3 - 96.[address] [facility] MCH 27.4 27.1 - 33.[address] [facility] MCHC 32.6 32.3 - 35.7 g/dL [facility] RDW CV 15.8(H) 11.1 - 14.9 % [facility] RDW SD 44.9 35.7 - 48.[address] [facility] NRBC abs 0.00 0.00 - 0.01 K/cumm [facility] Blood 06/03/2025 8:29 PM CDT 06/03/2025 8:48 PM CDT Dinorah Kahn SWEET POTATO DISINTEGRATOR LAB BLOOD ORDERABLES Final Result Performing Organization Address [facility] Co de Phone Number [facility] [place] [address] * Phosphorus (06/03/2025 8:29 PM CDT) Phosphorus, pl 3.3 2.3 - 4.5 mg/dL Blood 06/03/2025 8:29 PM CDT 06/03/2025 8:49 PM CDT Libia Suarez SWEET POTATO DISINTEGRATOR LAB BLOOD ORDERABLES Final Re sult Performing Organization Address City/[facility] Co de Phone Number [facility] [place] [address] * Magnesium (06/03/2025 8:29 PM CDT) Magnesium 2.5 1.4 - 2.5 mg/dL Blood 06/03/2025 8:29 PM CDT 06/03/2025 8:49 PM CDT Dinorah Kahn NP LAB BLOOD ORDERABLES Final Result Performing Organization Address [facility]/ZIP Co de Phone Number [facility] [place] [address] * (ABNORMAL) Hepatic function panel (06/03/2025 8:29 PM CDT) [facility] Bilirubin, total 0.3 0.1 - 1.2 mg/dL Bilirubin, direct <0.2 0.1 - 0.3 mg/dL [facility] Comment:Repeated and Verifie d Protein, pl 5.6(L) 6.5 - 8.5 g/dL [facility] Albumin 3.5 3.5 - 5.0 g/dL [facility] Alk phos 268(H) 40 - 130 Units/L [facility] ALT 74(H) 7 - 55 Units/L [facility] AST 32 10 - 50 Units/L [facility] Blood 06/03/2025 8:29 PM CDT 06/03/2025 8:49 PM CDT Libia Suarez SWEET POTATO DISINTEGRATOR LAB BLOOD ORDERABLES Final Re sult [facility] [place] [address] * (ABNORMAL) Basic metabolic panel (06/03/2025 8:29 PM CDT) [facility] Sodium 135 135 - 145 mmol/L Potassium, pl 5.9(H) 3.3 - 4.9 mmol/L [facility] Chloride 105 97 - 110 mmol/L [facility] CO2 23 22 - 32 mmol/L [facility] Anion gap 7 2 - 15 mmol/L [facility] BUN 68(H) 6 - 25 mg/dL [facility] Creatinine 1.79(H) 0.80 - 1.30 mg/dL [facility] Glucose 254(H) 70 - 199 mg/dL [facility] Comment: Interpretive Data Fasting glucose >/= 126 mg/dl is diagnostic for diabetes. Fasting is defined as no caloric intake for at least 8 hours. Fasting glucose between 100 mg/dl to 125 mg/dl is diagnostic of prediabetes. In a patient with classic symptoms of hyperglycemia or hyperglycemic crisis, a random glucose >/= 200 mg/dl is diagnostic for diabetes. In the absence of unequivocal hyperglycemia, results should be confirmed by repeat testing. The classification and Diagnosis of Diabetes Diabetes Care 2021; 46: S19-S40. Current interpretive data was last revised 2022. Calcium 9.1 8.5 - 10.3 mg/dL [facility] Blood 06/03/2025 8:29 PM CDT 06/03/2025 8:49 PM CDT Libia Suarez NP LAB BLOOD ORDERABLES Final Re sult Performing Organization Address [facility] Co de Phone Number [facility] [place] [address] * (ABNORMAL) POCT glucose (06/03/2025 7:49 PM CDT) Glucose, POC 258(H) 70 - 199 mg/dL Blood 06/03/2025 7:49 PM CDT 06/03/2025 7:49 PM CDT Addy Tapia MD LAB POCT ORDERABLES - DE VICE Final Result Performing Organization Address [facility] Co de Phone Number [facility] [place] [address] * (ABNORMAL) POCT glucose (06/03/2025 5:09 PM CDT) Glucose, POC 264(H) 70 - 199 mg/dL Blood 06/03/2025 5:09 PM CDT 06/03/2025 5:09 PM CDT Addy Tapia MD LAB POCT ORDERABLES - DE VICE Final Result Performing Organization Address [facility] Co de Phone Number [facility] [place] [address] * POCT glucose (06/03/2025 10:46 AM CDT) Glucose, POC 160 70 - 199 mg/dL Blood 06/03/2025 10:4 6 AM CDT 06/03/2025 10:46 AM CDT us Addy Tapia MD LAB POCT ORDERABLES - DE VICE Final Result DULCE MARIA [facility] [place] [address] * TRANSTHORACIC ECHO (TTE) LIMITED/FOLLOW UP W LTD DOPPLER/CF WO CONTRAST (06/03/2025 10:11 AM CDT) Anatomical Region Laterality Modality Ultrasound 06/03/2025 9:06 AM CDT Narrative 06/03/2025 11:27 AM CDT [facility] [place] [address] Transthoracic Echocardiographic Report Patient Name: GOSIA ZUNIGA W : 1965 (60y ) Gender: M Study Date: 06/03/2025 09:06:07 AM Ht(Inch): 72 Wt(Lb): 175.05 BSA: 2.01 Pack Mule Worker: Gabby Joshua RDCS Location: 5518 Order Provider: RODNEY AMOS Heart Rate: 95 BMI: 23.74 Ref Provider: RODNEY AMOS PROCEDURES: Additional Procedures: Biopsy monitoring. INDICATIONS: EMBx, S/P OHTx. CONCLUSIONS: 2. S/P endomyocardial biopsy x 4 without complication. ATTESTATION: I have personally reviewed and interpreted this study without fellow or resident. - DISCLAIMER: The study images and the final report will be retained in the patient chart by the Echo Laboratory for the legally required time period. This chart constitutes the legal record of any testing performed. FINDINGS: Left Ventricle: Grossly normal LV size and systolic function. Right Ventricle: Grossly normal RV size and function. s/p endomyocardial biopsy x 4 without complication. Left Atrium: The left atrium is normal in size. Right Atrium: The right atrium is normal in size. Tricuspid Valve: Normal tricuspid valve structure. Mild tricuspid regurgitation. TR unchanged by biopsy procedure. Pericardium: Normal pericardium without pericardial effusion. Electronically Signed By: Dmitry Araya M.D. 06/03/2025 11:27:37 AM CDT Procedure Note Dmitry Araya MD PhD - 06/03/2025 [facility] Card[place] [address] Transthoracic Echocardiographic Report Patient Name: GOSIA ZUNIGA W : 1965 (60y ) Gender: M Study Date: 06/03/2025 09:06:07 AM Ht(Inch): 72 Wt(Lb): 175.05 BSA: 2.01 Pack Mule Worker: Gabby Joshua RDCS Location: 18 Order Provider:RODNEY AMOS Heart Rate: 95 BMI: 23.74 Ref Provider: RODNEY AMOS PROCEDURES: Additional Procedures: Biopsy monitoring. INDICATIONS: EMBx, S/P OHTx. CONCLUSIONS: 2. S/P endomyocardial biopsy x 4 without complication. ATTESTATION: I have personally reviewed and interpreted this study without fellow orresident. - DISCLAIMER: The study images and the final report will be retained in the patientchart by the Echo Laboratory for the legally required time period. This chart constitutesthe legal record of any testing performed. FINDINGS: Left Ventricle: Grossly normal LV size and systolic function. Right Ventricle: Grossly normal RV size and function. s/p endomyocardialbiopsy x 4 without complication. Left Atrium: The left atrium is normal in size. Right Atrium: The right atrium is normal in size. Tricuspid Valve: Normal tricuspid valve structure. Mild tricuspidregurgitation. TR unchanged by biopsy procedure. Pericardium: Normal pericardium without pericardial effusion. Electronically Signed By: Dmitry Araya M.D. 06/03/2025 11:27:37 AM CDT us Rodney Amos MD PhD CV ECHO PROCEDURES F inal Result * POCT glucose (06/03/2025 9:46 AM CDT) Glucose, POC 170 70 - 199 mg/dL Blood 06/03/2025 9:46 AM CDT 06/03/2025 9:46 AM CDT us Addy Tapia MD LAB POCT ORDERABLES - DE VICE Final Result DULCE MARIA [facility] Department [place] [address] * ENDOMYOCARDIAL BIOPSY (06/03/2025 9:12 AM CDT) Anatomical Region Laterality Modality X-Ray Angiograph y Impressions 06/03/2025 9:32 AM CDT Mildy elevated right atrial pressure Successful endomyocardial biopsy performed without apparent complications. The microscopic results will be issued in a separate report by the pathology department. RECOMMENDATION: Close follow up will be provided by the heart transplant service. Any adjustment in Gosia Zuniga's immunosuppressive regimen will be made based on today's study in conjunction with the remainder of his clinical evaluation. Narrative 06/03/2025 9:32 AM CDT [facility] ELEVATOR SUPERVISOR REPORT PROCEDURE: Endomyocardial biopsy CLINICAL HISTORY: Gosia Zuniga is a 60 y.o. 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 He returns for endomyocardial biopsy to rule out rejection per institutional protocol. FELLOW: Romelia Lerma MD PROCEDURE: 1. The risks, benefits, and details of the procedure were explained to the patient. The patient verbalized understanding and wanted to proceed. Informed written consent was obtained. 2. The patient received 37.5 mcg fentanyl and 1.5 mg versed at 08:38. I provided direct face to face monitoring of the patient from 08:38 to 09:10. The sedation was administered by a licensed and trained nurse. 3. The right neck was sterilly prepped and draped. 4. Access: 2% Lidocaine was used for topical anesthesia. Using a combination of micropuncture and modified Seldinger technique a 7 Indonesian sheath was inserted into the right jugular vein. 5. Endomyocardial biopsy was performed using a 7 Indonesian bioptome. 4 endomyocardial biopsy specimens were obtained, placed in 10% formalin, and sent to the pathology for histological analysis. Echocardiography was utilized to localize the bioptome adjacent to the distal third of the right ventricular septum with each pass. Echocardiography was also used to rule out the presence of worsening tricuspid regurgitation or pericardial effusion following the procedure. 6. Hemostasis: Following the procedure the venous sheath was removed and manual compression applied. There was no bleeding or hematoma present. 7. Complications: There were no complications and the patient left the cardiac catheterization suite in satisfactory condition. RESULTS: HEMODYNAMICS: Pre-biopsy: Heart rate: 109 beats per minute Blood pressure: 128/71 mmHg Right atrial pressure: 8 mmHg Post-biopsy: Heart rate: 89 beats per minute, a-paced Blood pressure: 113/60 mmHg Right atrial pressure: 8 mmHg DIAGNOSTIC us Chelsy Rater SWEET POTATO DISINTEGRATOR CV CARDIAC CATH PROCEDURES Final Result * Surgical pathology (06/03/2025 7:58 AM CDT) Tissue (Heart, Biopsy) 06/03/2025 7:58 AM CDT Narrative PATHOLOGY [facility] - 06/03/2025 3:47 PM CDT EPIC results best viewed via link to PDF [facility] [place] [address] Note to Patients: This report may contain a detailed description of human tissue sent by a health care provider to the laboratory for pathologic evaluation. The content of this report is essential for diagnosis and may provide important critical findings. This information may be unfamiliar to patients to review without a medical professional present. It is advised that the patient review this report in the presence of a health care provider who can answer questions and explain the details. SURGICAL PATHOLOGY REPORT FINAL Patient Name: GOSIA ZUNIGA Gender: M : 1965 (Age: 60) Address: [address] [place], [place] [id number] Hospital #: [id number] Taken:06/03/2025 Received:06/03/2025 Reported: 06/03/2025 Patient Type: [facility] Inpatient Service: Cardiology Location: [address] Physician(s): Rodney Amos M.D. Yaakov Lawrence M.D., PHD Anuel Vargas D.O. Diagnosis: A. Heart, allograft, endomyocardial biopsy: - No evidence of acute cellular rejection, ISHLT [id number] - No histologic features suggestive of antibody mediated rejection fece/06/03/2025 15:41 By this signature, I attest that the above diagnosis is based upon my personal examination of the slides(and/or other material indicated in the diagnosis). Vin Bennett M.D. Report Electronically Reviewed and Signed Out By Vin Bennett M.D. 06/03/2025 15:47:31 Peyton Webber M.D. History: The patient is a 60-year-old man presenting with transplanted heart. Operative procedure: Endomyocardial biopsy. Specimen(s) Received: A: Heart biopsy Gross Description: Received in formalin, labeled with the patient s identifiers and heart biopsy and consists of four domingo-red fragment(s) of soft tissue measuring 0.2 to 0.4 cm in greatest dimension. Labeled A1. Jar 0. elsw/06/03/2025 10:23 PA(s): Araceli Barger By this signature, I attest that the above diagnosis is based upon my personal examination of the slides(and/or other material). Addenda/Procedures The performance characteristics of some immunohistochemical stains, fluorescence in-situ hybridization tests and immunophenotyping by flow cytometry cited in this report (if any) were determined by the Surgical Pathology and Flow Cytometry Departments at [facility] as part of an ongoing quality lead program and in compliance with federally mandated regulations drawn from the Clinical Laboratory Improvement Act of 1988 (CLIA '88). Some of these tests rely on the use of analyte specific reagents and are subject to specific labeling requirements by the US Food and Drug Administration. Such diagnostic tests may only be performed in a facility that is certified by the Department of Health and Human Services as a high complexity laboratory under CLIA '88. The FDA has determined that such clearance or approval is not necessary. This test is used for clinical purposes. It should not be regarded as investigational or for research. Nevertheless, federal rules concerning the medical use of analyte specific reagents require that the following disclaimer be attached to the report: This test was developed and its performance characteristics determined by the Surgical Pathology and Flow Cytometry Departments of [facility]. It has not been cleared or approved by the U. S. Food and Drug Administration. IMAGES AND SCANNED DOCUMENTS, IF INCLUDED, ONLY VIEWABLE IN PDF VERSION OF REPORT us Rodney Amos MD PhD LAB PATHOLOGY ORDERA CHRIS Final Result PATHOLOGY [facility] [address]rd Floor [place], [place] [phone] * POCT glucose (06/03/2025 6:59 AM CDT) Glucose, POC 146 70 - 199 mg/dL Blood 06/03/2025 6:59 AM CDT 06/03/2025 6:59 AM CDT Result [facility] Addy Tapia MD LAB POCT ORDERABLES - DE VICE Final Result Performing Organization Address [facility] Phone Number [facility] [place] [address] * Potassium, whole blood (06/03/2025 6:26 AM CDT) Potassium, bld 4.8 3.3 - 4.9 mmol/L Blood 06/03/2025 6:26 AM CDT 06/03/2025 6:37 AM CDT Result [facility] Bar Gamble MD LAB BLOOD ORDERABLES Final R esult Performing Organization Address [facility] Phone Number [facility] [place] [address] * Oxyhemoglobin, central venous (06/03/2025 5:24 AM CDT) Oxyhemoglobin, CV 73.5 % Comment: Interpretive Data No reference range established. Current interpretive data was last revised 2020. Blood 06/03/2025 5:24 AM CDT 06/03/2025 5:35 AM CDT Result [facility] Addy Tapia MD LAB BLOOD ORDERABLES Fin al Result Performing Organization Address [facility] Phone Number [facility] [place] [address] * Tacrolimus level trough (06/03/2025 5:17 AM CDT) Tacrolimus trough 8.9 ng/mL Comment: Interpretive Data Testing performed by liquid chromatography-tandem mass spectrometry. Therapeutic concentrations vary depending on type of transplanted organ and time elapsed since transplant. Typical trough concentrations range from 5-15 ng/mL. This test was developed and its performance characteristics determined by the [facility] consistent with CLIA requirements. This test has not been cleared or approved by the US Food and Drug administration. Current interpretive data last reviewed 2020. Blood 06/03/2025 5:17 AM CDT 06/03/2025 5:42 AM CDT Zev Cowart MD PhD LAB BLOOD ORDERABLES Fi nal Result Performing Organization Address City/[facility]/ZIP Co de Phone Number [facility] [place] [address] * (ABNORMAL) POCT glucose (06/02/2025 8:28 PM CDT) Glucose, POC 270(H) 70 - 199 mg/dL Blood 06/02/2025 8:28 PM CDT 06/02/2025 8:28 PM CDT Addy Tapia MD LAB POCT ORDERABLES - DE VICE Final Result Performing Organization Address [facility] de Phone Number [facility] [place] [address] * (ABNORMAL) eGFR (06/02/2025 8:22 PM CDT) eGFR 41(L) >=60 mL/min/1. 73 m2 Comment: Interpretive Data Reference Interval Normal >/= 90 mL/min/1.73m2 Mildly decreased* 60 - 89 mL/min/1.73m2 Mildly to moderately decreased 45 - 59 mL/min/1.73m2 Moderately to severely decreased 30 - 44 mL/min/1.73m2 Severely decreased 15 - 29 mL/min/1.73m2 Kidney Failure < 15 mL/min/1.73m2 *Relative to young adult level Estimated glomerular filtration rate is determined by the 2020 CKD-EPI equation recommended by the National Kidney Foundation (A Unifying Approach to GFR Estimation: Recommendations of the NKF-ASK Task Force on Reassessing the Inclusion of Race in Diagnosing Kidney Disease, JASN 2020). The CKD-EPI equation should not be used for patients with unstable renal function and has not been validated in children and those over 70. Current interpretive data was last reviewed 2021. Blood 06/02/2025 8:22 PM CDT 06/02/2025 8:48 PM CDT Libia Suarez SWEET POTATO DISINTEGRATOR LAB BLOOD ORDERABLES Final Re sult Performing Organization Address City/[facility]/ZIP Co de Phone Number [facility] [place] [address] * (ABNORMAL) CBC without differential (06/02/2025 8:22 PM CDT) WBC 11.87(H) 3.80 - 9.90 K/cumm Hgb 7.7(L) 13.0 - 17.5 g/dL [facility] Hct 24.1(L) 38.9 - 50.3 % [facility] Plt 253 150 - 400 K/cumm [facility] MPV 11.2 9.1 - 12.[address] [facility] RBC 2.88(L) 4.30 - 5.80 M/cumm [facility] MCV 83.7 81.3 - 96.[address] [facility] MCH 26.7(L) 27.1 - 33.[address] [facility] MCHC 32.0(L) 32.3 - 35.7 g/dL [facility] RDW CV 15.2(H) 11.1 - 14.9 % [facility] RDW SD 44.6 35.7 - 48.[address] [facility] NRBC abs 0.00 0.00 - 0.01 K/cumm [facility] Blood 06/02/2025 8:22 PM CDT 06/02/2025 8:48 PM CDT Dinorah Kahn SWEET POTATO DISINTEGRATOR LAB BLOOD ORDERABLES Final Result [facility] [place] [address] * Phosphorus (06/02/2025 8:22 PM CDT) Pathologist [facility] Phosphorus, pl 3.3 2.3 - 4.5 mg/dL Blood 06/02/2025 8:22 PM CDT 06/02/2025 8:48 PM CDT Libia Suarez SWEET POTATO DISINTEGRATOR LAB BLOOD ORDERABLES Final Re sult Performing Organization Address [facility] Co de Phone Number [facility] [place] [address] * Magnesium (06/02/2025 8:22 PM CDT) [facility] Magnesium 1.8 1.4 - 2.5 mg/dL Blood 06/02/2025 8:22 PM CDT 06/02/2025 8:48 PM CDT Dinorah Kahn SWEET POTATO DISINTEGRATOR LAB BLOOD ORDERABLES Final Result Performing Organization Address [facility] de Phone Number [facility] [place] [address] * (ABNORMAL) Hepatic function panel (06/02/2025 8:22 PM CDT) [facility] Bilirubin, total 0.3 0.1 - 1.2 mg/dL Bilirubin, direct 0.2 0.1 - 0.3 mg/dL [facility] Protein, pl 5.3(L) 6.5 - 8.5 g/dL [facility] Albumin 3.4(L) 3.5 - 5.0 g/dL [facility] Alk phos 250(H) 40 - 130 Units/L [facility] ALT 82(H) 7 - 55 Units/L [facility] AST 35 10 - 50 Units/L [facility] Blood 06/02/2025 8:22 PM CDT 06/02/2025 8:48 PM CDT Libia Suarez SWEET POTATO DISINTEGRATOR LAB BLOOD ORDERABLES Final Re sult Performing Organization Address City/[facility]/ZIP Co de Phone Number [facility] [place] [address] * (ABNORMAL) Basic metabolic panel (06/02/2025 8:22 PM CDT) [facility] Sodium 138 135 - 145 mmol/L Potassium, pl 5.8(H) 3.3 - 4.9 mmol/L [facility] Chloride 106 97 - 110 mmol/L [facility] CO2 23 22 - 32 mmol/L [facility] Anion gap 9 2 - 15 mmol/L [facility] BUN 72(H) 6 - 25 mg/dL [facility] Creatinine 1.83(H) 0.80 - 1.30 mg/dL [facility] Glucose 258(H) 70 - 199 mg/dL [facility] Comment: Interpretive Data Fasting glucose >/= 126 mg/dl is diagnostic for diabetes. Fasting is defined as no caloric intake for at least 8 hours. Fasting glucose between 100 mg/dl to 125 mg/dl is diagnostic of prediabetes. In a patient with classic symptoms of hyperglycemia or hyperglycemic crisis, a random glucose >/= 200 mg/dl is diagnostic for diabetes. In the absence of unequivocal hyperglycemia, results should be confirmed by repeat testing. The classification and Diagnosis of Diabetes Diabetes Care 202; 46: S19-S40. Current interpretive data was last revised 2022. Calcium 8.8 8.5 - 10.3 mg/dL [facility] Blood 06/02/2025 8:22 PM CDT 06/02/2025 8:48 PM CDT Libia Suarez NP LAB BLOOD ORDERABLES Final Re sult Performing Organization Address City/[facility]/ZIP Co de Phone Number [facility] [place] [address] * POCT glucose (06/02/2025 3:35 PM CDT) Glucose, POC 180 70 - 199 mg/dL Blood 06/02/2025 3:35 PM CDT 06/02/2025 3:35 PM CDT Addy Tapia MD LAB POCT ORDERABLES - DE VICE Final Result Performing Organization Address [facility] Co de Phone Number [facility] [place] [address] * POCT glucose (06/02/2025 11:12 AM CDT) Glucose, POC 171 70 - 199 mg/dL Blood 06/02/2025 11:1 2 AM CDT 06/02/2025 11:12 AM CDT Addy Tapia MD LAB POCT ORDERABLES - DE VICE Final Result Performing Organization Address [facility] de Phone Number [facility] [place] [address] * POCT glucose (06/02/2025 7:56 AM CDT) Glucose, POC 160 70 - 199 mg/dL Blood 06/02/2025 7:56 AM CDT 06/02/2025 7:56 AM CDT Addy Tapia MD LAB POCT ORDERABLES - DE VICE Final Result Performing Organization Address [facility] Co de Phone Number [facility] [place] [address] * Oxyhemoglobin, central venous (06/02/2025 5:05 AM CDT) Oxyhemoglobin, CV 71.3 % Comment: Interpretive Data No reference range established. Current interpretive data was last revised 2020. Blood 06/02/2025 5:05 AM CDT 06/02/2025 5:32 AM CDT Result [facility] Addy Tapia MD LAB BLOOD ORDERABLES Fin al Result Performing Organization Address [facility] de Phone Number [facility] [place] [address] * Potassium, whole blood (06/02/2025 5:05 AM CDT) Potassium, bld 4.8 3.3 - 4.9 mmol/L Blood 06/02/2025 5:05 AM CDT 06/02/2025 5:32 AM CDT Result [facility] Addy Tapia MD LAB BLOOD ORDERABLES Fin al Result Performing Organization Address [facility] Phone Number [facility] [place] [address] * Tacrolimus level trough (06/02/2025 5:05 AM CDT) Tacrolimus trough 11.5 ng/mL Comment: Interpretive Data Testing performed by liquid chromatography-tandem mass spectrometry. Therapeutic concentrations vary depending on type of transplanted organ and time elapsed since transplant. Typical trough concentrations range from 5-15 ng/mL. This test was developed and its performance characteristics determined by the [facility] consistent with CLIA requirements. This test has not been cleared or approved by the US Food and Drug administration. Current interpretive data last reviewed 2020. Blood 06/02/2025 5:05 AM CDT 06/02/2025 5:40 AM CDT Zev Cowart MD PhD LAB BLOOD ORDERABLES Fi nal Result Performing Organization Address [facility] de Phone Number [facility] [place] [address] * Antibody identification (06/01/2025 10:08 PM CDT) Antibody ID 1 Anti-CD38 Comment:Panreactive -CD38 on reagent RBCs reacting with anti-CD38 therapy. DTT treatment removes cell surface CD38 and allows detection of common clinically significant antibodies except those against [place] antigens. TRANSFUSION 2015;55;[id number] Blood 06/01/2025 10:0 8 PM CDT 06/01/2025 10:08 PM CDT us Dinorah Kahn SWEET POTATO DISINTEGRATOR LAB BLOOD BANK TEST ORDERAB LES Final Result [facility] [place] [address] * XR Chest 1 View (06/01/2025 9:26 PM CDT) Anatomical Region Laterality Modality Body, Chest N/A Digital Radiogra phy 06/02/2025 12:3 4 PM CDT Impressions 06/02/2025 12:34 PM CDT Comparison is made to prior from 05/31/2025. 3 surgical drains overlie the cardiac mediastinal silhouette. Right internal jugular central venous catheter overlies the superior vena cava. The heart size is stable. There are small bilateral pleural effusions. Mild bibasilar atelectasis. No pneumothorax. Electronically signed by: Lorenzo Weir M.D. Narrative 06/02/2025 12:34 PM CDT EXAMINATION: 1 view chest radiograph Procedure Note Lorenzo Weir MD - 06/02/2025 EXAMINATION: 1 view chest radiograph IMPRESSION: Comparison is made to prior from 05/31/2025. 3 surgical drains overlie the cardiac mediastinal silhouette. Right internal jugular central venous catheter overlies the superior vena cava. The heart size is stable. There are small bilateral pleural effusions. Mild bibasilar atelectasis. No pneumothorax. Electronically signed by: Lorenzo Weir M.D. us Addy Tapia MD IMG XR PROCEDURES Final Result * (ABNORMAL) eGFR (06/01/2025 8:20 PM CDT) Pathologist [facility] eGFR 40(L) >=60 mL/min/1. 73 m2 Comment: Interpretive Data Reference Interval Normal >/= 90 mL/min/1.73m2 Mildly decreased* 60 - 89 mL/min/1.73m2 Mildly to moderately decreased 45 - 59 mL/min/1.73m2 Moderately to severely decreased 30 - 44 mL/min/1.73m2 Severely decreased 15 - 29 mL/min/1.73m2 Kidney Failure < 15 mL/min/1.73m2 *Relative to young adult level Estimated glomerular filtration rate is determined by the 2020 CKD-EPI equation recommended by the National Kidney Foundation (A Unifying Approach to GFR Estimation: Recommendations of the NKF-ASK Task Force on Reassessing the Inclusion of Race in Diagnosing Kidney Disease, JASN 2020). The CKD-EPI equation should not be used for patients with unstable renal function and has not been validated in children and those over 70. Current interpretive data was last reviewed 2021. Blood 06/01/2025 8:20 PM CDT 06/01/2025 9:12 PM CDT us Libia Suarez SWEET POTATO DISINTEGRATOR LAB BLOOD ORDERABLES Final Re sult [facility] [place] [address] * (ABNORMAL) CBC without differential (06/01/2025 8:20 PM CDT) WBC 13.71(H) 3.80 - 9.90 K/cumm Hgb 7.6(L) 13.0 - 17.5 g/dL [facility] Hct 23.9(L) 38.9 - 50.3 % [facility] Plt 240 150 - 400 K/cumm [facility] MPV 11.4 9.1 - 12.[address] [facility] RBC 2.84(L) 4.30 - 5.80 M/cumm [facility] MCV 84.2 81.3 - 96.[address] [facility] MCH 26.8(L) 27.1 - 33.[address] [facility] MCHC 31.8(L) 32.3 - 35.7 g/dL [facility] RDW CV 15.0(H) 11.1 - 14.9 % [facility] RDW SD 45.1 35.7 - 48.[address] [facility] NRBC abs 0.00 0.00 - 0.01 K/cumm [facility] Blood 06/01/2025 8:20 PM CDT 06/01/2025 9:13 PM CDT Dinorah Kahn NP LAB BLOOD ORDERABLES Final Result Performing Organization Address City/[facility] Co de Phone Number [facility] [place] [address] * (ABNORMAL) Type and screen (06/01/2025 8:20 PM CDT) Poppy, indirect Positive(A) ABO Rh O Positive [facility] Blood 06/01/2025 8:20 PM CDT 06/01/2025 9:19 PM CDT Narrative [facility] - 06/01/2025 10:08 PM CDT Has the patient had Daratumumab or Isatuximab in the past 6 months?->Unknown Dinorah Kahn NP LAB BLOOD BANK TEST ORDERAB LES Final Result [facility] [place] [address] * Phosphorus (06/01/2025 8:20 PM CDT) Phosphorus, pl 2.9 2.3 - 4.5 mg/dL Blood 06/01/2025 8:20 PM CDT 06/01/2025 9:12 PM CDT Libia Suarez SWEET POTATO DISINTEGRATOR LAB BLOOD ORDERABLES Final Re sult Performing Organization Address City/[facility] Co de Phone Number [facility] [place] [address] * Magnesium (06/01/2025 8:20 PM CDT) Pathologist [facility] Magnesium 1.8 1.4 - 2.5 mg/dL Blood 06/01/2025 8:20 PM CDT 06/01/2025 9:12 PM CDT Dinorah Kahn SWEET POTATO DISINTEGRATOR LAB BLOOD ORDERABLES Final Result Performing Organization Address [facility] de Phone Number [facility] [place] [address] * (ABNORMAL) Hepatic function panel (06/01/2025 8:20 PM CDT) Pathologist [facility] Bilirubin, total 0.3 0.1 - 1.2 mg/dL Bilirubin, direct 0.2 0.1 - 0.3 mg/dL [facility] Protein, pl 5.4(L) 6.5 - 8.5 g/dL [facility] Albumin 3.5 3.5 - 5.0 g/dL [facility] Alk phos 243(H) 40 - 130 Units/L [facility] ALT 100(H) 7 - 55 Units/L [facility] AST 56(H) 10 - 50 Units/L [facility] Blood 06/01/2025 8:20 PM CDT 06/01/2025 9:12 PM CDT Libia Suarez SWEET POTATO DISINTEGRATOR LAB BLOOD ORDERABLES Final Re sult Performing Organization Address [facility] Co de Phone Number [facility] [place] [address] * (ABNORMAL) Basic metabolic panel (06/01/2025 8:20 PM CDT) Pathologist [facility] Sodium 135 135 - 145 mmol/L Potassium, pl 5.9(H) 3.3 - 4.9 mmol/L [facility] Chloride 104 97 - 110 mmol/L [facility] CO2 23 22 - 32 mmol/L [facility] Anion gap 8 2 - 15 mmol/L [facility] BUN 70(H) 6 - 25 mg/dL [facility] Creatinine 1.89(H) 0.80 - 1.30 mg/dL [facility] Glucose 259(H) 70 - 199 mg/dL [facility] Comment: Interpretive Data Fasting glucose >/= 126 mg/dl is diagnostic for diabetes. Fasting is defined as no caloric intake for at least 8 hours. Fasting glucose between 100 mg/dl to 125 mg/dl is diagnostic of prediabetes. In a patient with classic symptoms of hyperglycemia or hyperglycemic crisis, a random glucose >/= 200 mg/dl is diagnostic for diabetes. In the absence of unequivocal hyperglycemia, results should be confirmed by repeat testing. The classification and Diagnosis of Diabetes Diabetes Care 202; 46: S19-S40. Current interpretive data was last revised 2022. Calcium 9.1 8.5 - 10.3 mg/dL [facility] Blood 06/01/2025 8:20 PM CDT 06/01/2025 9:12 PM CDT Libia Suarez SWEET POTATO DISINTEGRATOR LAB BLOOD ORDERABLES Final Re sult [facility] [place] [address] * (ABNORMAL) POCT glucose (06/01/2025 7:56 PM CDT) Pathologist [facility] Glucose, POC 248(H) 70 - 199 mg/dL Blood 06/01/2025 7:56 PM CDT 06/01/2025 7:56 PM CDT us Addy Tapia MD LAB POCT ORDERABLES - DE VICE Final Result [facility] [place] [address] * POCT glucose (06/01/2025 4:58 PM CDT) Glucose, POC 190 70 - 199 mg/dL Blood 06/01/2025 4:58 PM CDT 06/01/2025 4:58 PM CDT Addy Tapia MD LAB POCT ORDERABLES - DE VICE Final Result Performing Organization Address [facility] Co de Phone Number [facility] [place] [address] * XR Abdomen 1 View AP (06/01/2025 3:15 PM CDT) Anatomical Region Laterality Modality Body, Abdomen N/A Computed Radiogr aphy 06/01/2025 8:04 PM CDT Impressions 06/01/2025 8:04 PM CDT There is no evidence of a bowel obstruction. There are a few mildly prominent loops of large bowel which could represent colonic ileus. Gastric tube is not visualized. Electronically signed by: Jamie Lugo M.D. Narrative 06/01/2025 8:04 PM CDT EXAMINATION: Abdomen, one view. HISTORY: Ileus COMPARISON: 05/25/2025 Procedure Note Jamie Lugo MD - 06/01/2025 EXAMINATION: Abdomen, one view. HISTORY: Ileus COMPARISON: 05/25/2025 IMPRESSION: There is no evidence of a bowel obstruction. There are a few mildly prominent loops of large bowel which could represent colonic ileus. Gastric tube is not visualized. Electronically signed by: Jamie Lugo M.D. Araceli Hemphill SWEET POTATO DISINTEGRATOR IMG XR PROCEDURES Final Resul t * (ABNORMAL) POCT glucose (06/01/2025 10:52 AM CDT) Glucose, POC 253(H) 70 - 199 mg/dL Blood 06/01/2025 10:5 2 AM CDT 06/01/2025 10:52 AM CDT Addy Tapia MD LAB POCT ORDERABLES - DE VICE Final Result Performing Organization Address [facility] Phone Number [facility] [place] [address] * POCT glucose (06/01/2025 8:09 AM CDT) Glucose, POC 150 70 - 199 mg/dL Blood 06/01/2025 8:09 AM CDT 06/01/2025 8:09 AM CDT Addy Tapia MD LAB POCT ORDERABLES - DE VICE Final Result Performing Organization Address [facility] Phone Number [facility] [place] [address] * POCT glucose (06/01/2025 5:18 AM CDT) Glucose, POC 172 70 - 199 mg/dL Blood 06/01/2025 5:18 AM CDT 06/01/2025 5:18 AM CDT Addy Tapia MD LAB POCT ORDERABLES - DE VICE Final Result Performing Organization Address [facility] Phone Number [facility] [place] [address] * Tacrolimus level trough (06/01/2025 5:16 AM CDT) Tacrolimus trough 7.3 ng/mL Comment: Interpretive Data Testing performed by liquid chromatography-tandem mass spectrometry. Therapeutic concentrations vary depending on type of transplanted organ and time elapsed since transplant. Typical trough concentrations range from 5-15 ng/mL. This test was developed and its performance characteristics determined by the [facility] consistent with CLIA requirements. This test has not been cleared or approved by the US Food and Drug administration. Current interpretive data last reviewed 2020. Blood 06/01/2025 5:16 AM CDT 06/01/2025 5:50 AM CDT us Zev Cowart MD PhD LAB BLOOD ORDERABLES Fi nal Result Performing Organization Address City/[facility]/ZIP Co de Phone Number [facility] [place] [address] * (ABNORMAL) eGFR (05/31/2025 9:47 PM CDT) eGFR 47(L) >=60 mL/min/1. 73 m2 Comment: Interpretive Data Reference Interval Normal >/= 90 mL/min/1.73m2 Mildly decreased* 60 - 89 mL/min/1.73m2 Mildly to moderately decreased 45 - 59 mL/min/1.73m2 Moderately to severely decreased 30 - 44 mL/min/1.73m2 Severely decreased 15 - 29 mL/min/1.73m2 Kidney Failure < 15 mL/min/1.73m2 *Relative to young adult level Estimated glomerular filtration rate is determined by the 2020 CKD-EPI equation recommended by the National Kidney Foundation (A Unifying Approach to GFR Estimation: Recommendations of the NKF-ASK Task Force on Reassessing the Inclusion of Race in Diagnosing Kidney Disease, JASN 2020). The CKD-EPI equation should not be used for patients with unstable renal function and has not been validated in children and those over 70. Current interpretive data was last reviewed 2021. Blood 05/31/2025 9:47 PM CDT 05/31/2025 11:08 PM CDT us Libia Suarez SWEET POTATO DISINTEGRATOR LAB BLOOD ORDERABLES Final Re sult [facility] [place] [address] * (ABNORMAL) CBC without differential (05/31/2025 9:47 PM CDT) Pathologist [facility] WBC 9.43 3.80 - 9.90 K/cumm Hgb 8.0(L) 13.0 - 17.5 g/dL [facility] Hct 24.8(L) 38.9 - 50.3 % [facility] Plt 206 150 - 400 K/cumm [facility] MPV 10.9 9.1 - 12.[address] [facility] RBC 2.99(L) 4.30 - 5.80 M/cumm [facility] MCV 82.9 81.3 - 96.[address] [facility] MCH 26.8(L) 27.1 - 33.[address] [facility] MCHC 32.3 32.3 - 35.7 g/dL [facility] RDW CV 14.9 11.1 - 14.9 % [facility] RDW SD 44.4 35.7 - 48.[address] [facility] NRBC abs 0.00 0.00 - 0.01 K/cumm [facility] Blood 05/31/2025 9:47 PM CDT 05/31/2025 11:08 PM CDT Dinorah Kahn SWEET POTATO DISINTEGRATOR LAB BLOOD ORDERABLES Final Result Performing Organization Address City/[facility] Co de Phone Number [facility] [place] [address] * Phosphorus (05/31/2025 9:47 PM CDT) Pathologist [facility] Phosphorus, pl 2.6 2.3 - 4.5 mg/dL Blood 05/31/2025 9:47 PM CDT 05/31/2025 11:08 PM CDT Libia Suarez SWEET POTATO DISINTEGRATOR LAB BLOOD ORDERABLES Final Re sult Performing Organization Address City/[facility] Co de Phone Number [facility] [place] [address] * Magnesium (05/31/2025 9:47 PM CDT) Pathologist [facility] Magnesium 2.0 1.4 - 2.5 mg/dL Blood 05/31/2025 9:47 PM CDT 05/31/2025 11:08 PM CDT Dinorah Kahn SWEET POTATO DISINTEGRATOR LAB BLOOD ORDERABLES Final Result Performing Organization Address [facility] Co de Phone Number [facility] [place] [address] * (ABNORMAL) Hepatic function panel (05/31/2025 9:47 PM CDT) [facility] Bilirubin, total 0.3 0.1 - 1.2 mg/dL Bilirubin, direct 0.2 0.1 - 0.3 mg/dL [facility] Protein, pl 5.5(L) 6.5 - 8.5 g/dL [facility] Albumin 3.4(L) 3.5 - 5.0 g/dL [facility] Alk phos 242(H) 40 - 130 Units/[facility] 99(H) 7 - 55 Units/L [facility] AST 63(H) 10 - 50 Units/L [facility] Blood 05/31/2025 9:47 PM CDT 05/31/2025 11:08 PM CDT Libia Suarez SWEET POTATO DISINTEGRATOR LAB BLOOD ORDERABLES Final Re sult Performing Organization Address [facility] Co de Phone Number [facility] [place] [address] * (ABNORMAL) Basic metabolic panel (05/31/2025 9:47 PM CDT) [facility] Sodium 137 135 - 145 mmol/L Potassium, pl 5.3(H) 3.3 - 4.9 mmol/L [facility] Chloride 104 97 - 110 mmol/L [facility] CO2 24 22 - 32 mmol/L [facility] Anion gap 9 2 - 15 mmol/L [facility] BUN 63(H) 6 - 25 mg/dL [facility] Creatinine 1.65(H) 0.80 - 1.30 mg/dL [facility] Glucose 295(H) 70 - 199 mg/dL [facility] Comment: Interpretive Data Fasting glucose >/= 126 mg/dl is diagnostic for diabetes. Fasting is defined as no caloric intake for at least 8 hours. Fasting glucose between 100 mg/dl to 125 mg/dl is diagnostic of prediabetes. In a patient with classic symptoms of hyperglycemia or hyperglycemic crisis, a random glucose >/= 200 mg/dl is diagnostic for diabetes. In the absence of unequivocal hyperglycemia, results should be confirmed by repeat testing. The classification and Diagnosis of Diabetes Diabetes Care 2021; 46: S19-S40. Current interpretive data was last revised 2022. Calcium 8.7 8.5 - 10.3 mg/dL [facility] Blood 05/31/2025 9:47 PM CDT 05/31/2025 11:08 PM CDT Libia Suarez SWEET POTATO DISINTEGRATOR LAB BLOOD ORDERABLES Final Re sult [facility] [place] [address] * XR Chest 1 View (05/31/2025 8:58 PM CDT) Anatomical Region Laterality Modality Body, Chest N/A Digital Radiogra phy 06/01/2025 10:5 5 AM CDT Impressions 06/01/2025 10:55 AM CDT Comparison to 05/30/2025. Small bilateral pleural effusions with bibasilar opacities, likely partial atelectasis, unchanged from prior. Mediastinal drains are again seen. Right IJ CVC with tip over the SVC. Heart and mediastinum are unchanged status post median sternotomy. No pneumothorax. Electronically signed by: Blake Montanez M.D. Narrative 06/01/2025 10:55 AM CDT EXAMINATION: 1 view chest radiograph Procedure Note Blake Montanez MD - 06/01/2025 EXAMINATION: 1 view chest radiograph IMPRESSION: Comparison to 05/30/2025. Small bilateral pleural effusions with bibasilar opacities, likely partial atelectasis, unchanged from prior. Mediastinal drains are again seen. Right IJ CVC with tip over the SVC. Heart and mediastinum are unchanged status post median sternotomy. No pneumothorax. Electronically signed by: Blake Montanez M.D. us Addy Tapia MD IMG XR PROCEDURES Final Result * (ABNORMAL) POCT glucose (05/31/2025 8:49 PM CDT) Glucose, POC 306(H) 70 - 199 mg/dL Blood 05/31/2025 8:49 PM CDT 05/31/2025 8:49 PM CDT us Addy Tapia MD LAB POCT ORDERABLES - DE VICE Final Result Performing Organization Address [facility] Co [place] Phone Number [facility] [place] [address] * POCT glucose (05/31/2025 3:58 PM CDT) Glucose, POC 198 70 - 199 mg/dL Blood 05/31/2025 3:58 PM CDT 05/31/2025 3:58 PM CDT us Addy Tapia MD LAB POCT ORDERABLES - DE VICE Final Result Performing Organization Address [facility] Co de Phone Number [facility] [place] [address] * POCT glucose (05/31/2025 11:47 AM CDT) Glucose, POC 173 70 - 199 mg/dL Blood 05/31/2025 11:4 7 AM CDT 05/31/2025 11:47 AM CDT Result [facility] Addy Tapia MD LAB POCT ORDERABLES - DE VICE Final Result Performing Organization Address [facility] Phone Number [facility] [place] [address] * POCT glucose (05/31/2025 7:45 AM CDT) Glucose, POC 155 70 - 199 mg/dL Blood 05/31/2025 7:45 AM CDT 05/31/2025 7:45 AM CDT Result [facility] Addy Tapia MD LAB POCT ORDERABLES - DE VICE Final Result Performing Organization Address [facility] Phone Number [facility] [place] [address] * Tacrolimus level trough (05/31/2025 4:18 AM CDT) Tacrolimus trough 8.5 ng/mL Comment: Interpretive Data Testing performed by liquid chromatography-tandem mass spectrometry. Therapeutic concentrations vary depending on type of transplanted organ and time elapsed since transplant. Typical trough concentrations range from 5-15 ng/mL. This test was developed and its performance characteristics determined by the [facility] consistent with CLIA requirements. This test has not been cleared or approved by the US Food and Drug administration. Current interpretive data last reviewed 2020. Blood 05/31/2025 4:18 AM CDT 05/31/2025 5:39 AM CDT Zev Cowart MD PhD LAB BLOOD ORDERABLES Fi nal Result Performing Organization Address [facility] Co de Phone Number [facility] [place] [address] * XR Chest 1 View (05/30/2025 10:18 PM CDT) Anatomical Region Laterality Modality Body, Chest N/A Digital Radiogra phy 05/31/2025 10:2 5 AM CDT Impressions 05/31/2025 10:25 AM CDT Sternal fixation plates again seen. Right internal jugular catheter tip at superior cavoatrial junction. Mediastinal drains and epicardial pacing wires still present. Stable cardiomediastinal silhouette. No change in small bilateral pleural effusions and mild bibasilar atelectasis. Minimal thickening along the right minor fissure may be from atelectasis or minimal pleural fluid. No pneumothorax. Electronically signed by: Zev Jaimes M.D. Narrative 05/31/2025 10:25 AM CDT EXAMINATION: 1 view chest radiograph COMPARISON: 05/29/2025 Procedure Note Zev Jaimes MD - 05/31/2025 EXAMINATION: 1 view chest radiograph COMPARISON: 05/29/2025 IMPRESSION: Sternal fixation plates again seen. Right internal jugular catheter tip at superior cavoatrial junction. Mediastinal drains and epicardial pacing wires still present. Stable cardiomediastinal silhouette. No change in small bilateral pleural effusions and mild bibasilar atelectasis. Minimal thickening along the right minor fissure may be from atelectasis or minimal pleural fluid. No pneumothorax. Electronically signed by: Zev Jaimes M.D. Adyd Jamar Tapia MD IMG XR PROCEDURES Final Result * Oxyhemoglobin, central venous (05/30/2025 8:30 PM CDT) Oxyhemoglobin, CV 63.9 % Comment: Interpretive Data No reference range established. Current interpretive data was last revised 2020. Blood 05/30/2025 8:30 PM CDT 05/30/2025 8:44 PM CDT us Dinorah Kahn NP LAB BLOOD ORDERABLES Final Result Performing Organization Address City/[facility]/ZIP Co de Phone Number [facility] [place] [address] * (ABNORMAL) Potassium, whole blood (05/30/2025 8:30 PM CDT) Potassium, bld 5.1(H) 3.3 - 4.9 mmol/L Blood 05/30/2025 8:30 PM CDT 05/30/2025 8:44 PM CDT us Bar Gamble MD LAB BLOOD ORDERABLES Final R esult Performing Organization Address [facility] Co de Phone Number [facility] [place] [address] * (ABNORMAL) eGFR (05/30/2025 8:23 PM CDT) eGFR 51(L) >=60 mL/min/1. 73 m2 Comment: Interpretive Data Reference Interval Normal >/= 90 mL/min/1.73m2 Mildly decreased* 60 - 89 mL/min/1.73m2 Mildly to moderately decreased 45 - 59 mL/min/1.73m2 Moderately to severely decreased 30 - 44 mL/min/1.73m2 Severely decreased 15 - 29 mL/min/1.73m2 Kidney Failure < 15 mL/min/1.73m2 *Relative to young adult level Estimated glomerular filtration rate is determined by the 2020 CKD-EPI equation recommended by the National Kidney Foundation (A Unifying Approach to GFR Estimation: Recommendations of the NKF-ASK Task Force on Reassessing the Inclusion of Race in Diagnosing Kidney Disease, JASN 2020). The CKD-EPI equation should not be used for patients with unstable renal function and has not been validated in children and those over 70. Current interpretive data was last reviewed 2021. Blood 05/30/2025 8:23 PM CDT 05/30/2025 8:54 PM CDT Libia Suarez SWEET POTATO DISINTEGRATOR LAB BLOOD ORDERABLES Final Re sult [facility] [place] [address] * (ABNORMAL) CBC without differential (05/30/2025 8:23 PM CDT) Pathologist [facility] WBC 9.23 3.80 - 9.90 K/cumm Hgb 8.3(L) 13.0 - 17.5 g/dL [facility] Hct 25.8(L) 38.9 - 50.3 % [facility] Plt 193 150 - 400 K/cumm [facility] MPV 11.1 9.1 - 12.[address] [facility] RBC 3.08(L) 4.30 - 5.80 M/cumm [facility] MCV 83.8 81.3 - 96.[address] [facility] MCH 26.9(L) 27.1 - 33.[address] [facility] MCHC 32.2(L) 32.3 - 35.7 g/dL [facility] RDW CV 14.7 11.1 - 14.9 % [facility] RDW SD 44.9 35.7 - 48.[address] [facility] NRBC abs 0.00 0.00 - 0.01 K/cumm [facility] Blood 05/30/2025 8:23 PM CDT 05/30/2025 8:51 PM CDT us Dinorah Kahn SWEET POTATO DISINTEGRATOR LAB BLOOD ORDERABLES Final Result [facility] [place] [address] * Phosphorus (05/30/2025 8:23 PM CDT) Pathologist [facility] Phosphorus, pl 2.6 2.3 - 4.5 mg/dL Blood 05/30/2025 8:23 PM CDT 05/30/2025 8:48 PM CDT Libia Suarez SWEET POTATO DISINTEGRATOR LAB BLOOD ORDERABLES Final Re sult Performing Organization Address City/[facility]/ZIP Co de Phone Number [facility] [place] [address] * Magnesium (05/30/2025 8:23 PM CDT) Magnesium 1.9 1.4 - 2.5 mg/dL Blood 05/30/2025 8:23 PM CDT 05/30/2025 8:48 PM CDT Addy Tapia MD LAB BLOOD ORDERABLES Fin al Result Performing Organization Address [facility] Co de Phone Number [facility] [place] [address] * (ABNORMAL) Hepatic function panel (05/30/2025 8:23 PM CDT) Bilirubin, total 0.4 0.1 - 1.2 mg/dL Bilirubin, direct 0.2 0.1 - 0.3 mg/dL [facility] Protein, pl 5.4(L) 6.5 - 8.5 g/dL [facility] Albumin 3.4(L) 3.5 - 5.0 g/dL [facility] Alk phos 202(H) 40 - 130 Units/[facility] ALT 63(H) 7 - 55 Units/L [facility] AST 57(H) 10 - 50 Units/L [facility] Blood 05/30/2025 8:23 PM CDT 05/30/2025 8:48 PM CDT Libia Suarez SWEET POTATO DISINTEGRATOR LAB BLOOD ORDERABLES Final Re sult Performing Organization Address [facility]/ZIP Co de Phone Number [facility] [place] [address] * (ABNORMAL) Basic metabolic panel (05/30/2025 8:23 PM CDT) Sodium 136 135 - 145 mmol/L Potassium, pl 5.2(H) 3.3 - 4.9 mmol/L [facility] Chloride 104 97 - 110 mmol/L [facility] CO2 25 22 - 32 mmol/L [facility] Anion gap 7 2 - 15 mmol/L [facility] BUN 57(H) 6 - 25 mg/dL [facility] Creatinine 1.54(H) 0.80 - 1.30 mg/dL [facility] Glucose 235(H) 70 - 199 mg/dL [facility] Comment: Interpretive Data Fasting glucose >/= 126 mg/dl is diagnostic for diabetes. Fasting is defined as no caloric intake for at least 8 hours. Fasting glucose between 100 mg/dl to 125 mg/dl is diagnostic of prediabetes. In a patient with classic symptoms of hyperglycemia or hyperglycemic crisis, a random glucose >/= 200 mg/dl is diagnostic for diabetes. In the absence of unequivocal hyperglycemia, results should be confirmed by repeat testing. The classification and Diagnosis of Diabetes Diabetes Care 2021; 46: S19-S40. Current interpretive data was last revised 2022. Calcium 8.7 8.5 - 10.3 mg/dL [facility] Blood 05/30/2025 8:23 PM CDT 05/30/2025 8:48 PM CDT Libia Suarez SWEET POTATO DISINTEGRATOR LAB BLOOD ORDERABLES Final Re sult [facility] [place] [address] * (ABNORMAL) POCT glucose (05/30/2025 8:05 PM CDT) Glucose, POC 240(H) 70 - 199 mg/dL Blood 05/30/2025 8:05 PM CDT 05/30/2025 8:05 PM CDT us Addy Mavisumbar Pawale MD LAB POCT ORDERABLES - DE VICE Final Result Performing Organization Address City/[facility] Co de Phone Number [facility] [place] [address] * POCT glucose (05/30/2025 4:44 PM CDT) Glucose, POC 187 70 - 199 mg/dL Blood 05/30/2025 4:44 PM CDT 05/30/2025 4:44 PM CDT Addy Tapia MD LAB POCT ORDERABLES - DE VICE Final Result Performing Organization Address [facility] [place] [address] * POCT glucose (05/30/2025 11:41 AM CDT) Glucose, POC 174 70 - 199 mg/dL Blood 05/30/2025 11:4 1 AM CDT 05/30/2025 11:41 AM CDT Addy Tapia MD LAB POCT ORDERABLES - DE VICE Final Result Performing Organization Address City/[facility]/ZIP Co de Phone Number [facility] [place] [address] * POCT glucose (05/30/2025 7:35 AM CDT) Glucose, POC 143 70 - 199 mg/dL Blood 05/30/2025 7:35 AM CDT 05/30/2025 7:35 AM CDT Addy Tapia MD LAB POCT ORDERABLES - DE VICE Final Result Performing Organization Address City/[facility]/ZIP Co de Phone Number [facility] [place] [address] * Tacrolimus level trough (05/30/2025 5:28 AM CDT) [facility] Tacrolimus trough 10.2 ng/mL Comment: Interpretive Data Testing performed by liquid chromatography-tandem mass spectrometry. Therapeutic concentrations vary depending on type of transplanted organ and time elapsed since transplant. Typical trough concentrations range from 5-15 ng/mL. This test was developed and its performance characteristics determined by the [facility] consistent with CLIA requirements. This test has not been cleared or approved by the US Food and Drug administration. Current interpretive data last reviewed 2020. Blood 05/30/2025 5:28 AM CDT 05/30/2025 5:41 AM CDT Zev Cowart MD PhD LAB BLOOD ORDERABLES Fi nal Result [facility] [place] [address] * Antibody identification (05/29/2025 10:52 PM CDT) [facility] Antibody ID 1 Anti-CD38 Comment:Panreactive -CD38 on reagent RBCs reacting with anti-CD38 therapy. DTT treatment removes cell surface CD38 and allows detection of common clinically significant antibodies except those against [place] antigens. TRANSFUSION 2015;55;[id number] Blood 05/29/2025 10:5 2 PM CDT 05/29/2025 10:52 PM CDT Dinorah Kahn SWEET POTATO DISINTEGRATOR LAB BLOOD BANK TEST ORDERAB LES Final Result [facility] [place] [address] * (ABNORMAL) eGFR (05/29/2025 8:49 PM CDT) [facility] eGFR 43(L) >=60 mL/min/1. 73 m2 Comment: Interpretive Data Reference Interval Normal >/= 90 mL/min/1.73m2 Mildly decreased* 60 - 89 mL/min/1.73m2 Mildly to moderately decreased 45 - 59 mL/min/1.73m2 Moderately to severely decreased 30 - 44 mL/min/1.73m2 Severely decreased 15 - 29 mL/min/1.73m2 Kidney Failure < 15 mL/min/1.73m2 *Relative to young adult level Estimated glomerular filtration rate is determined by the 2020 CKD-EPI equation recommended by the National Kidney Foundation (A Unifying Approach to GFR Estimation: Recommendations of the NKF-ASK Task Force on Reassessing the Inclusion of Race in Diagnosing Kidney Disease, JASN 2020). The CKD-EPI equation should not be used for patients with unstable renal function and has not been validated in children and those over 70. Current interpretive data was last reviewed 2021. Blood 05/29/2025 8:49 PM CDT 05/29/2025 9:30 PM CDT Libia Suarez SWEET POTATO DISINTEGRATOR LAB BLOOD ORDERABLES Final Re sult [facility] [place] [address] * (ABNORMAL) CBC without differential (05/29/2025 8:49 PM CDT) WBC 10.46(H) 3.80 - 9.90 K/cumm Hgb 8.7(L) 13.0 - 17.5 g/dL [facility] Hct 26.4(L) 38.9 - 50.3 % [facility] Plt 207 150 - 400 K/cumm [facility] MPV 11.1 9.1 - 12.[address] [facility] RBC 3.23(L) 4.30 - 5.80 M/cumm [facility] MCV 81.7 81.3 - 96.[address] [facility] MCH 26.9(L) 27.1 - 33.[address] [facility] MCHC 33.0 32.3 - 35.7 g/dL [facility] RDW CV 14.7 11.1 - 14.9 % [facility] RDW SD 44.1 35.7 - 48.[address] [facility] NRBC abs 0.00 0.00 - 0.01 K/cumm [facility] Blood 05/29/2025 8:49 PM CDT 05/29/2025 9:31 PM CDT Dinorah Kahn NP LAB BLOOD ORDERABLES Final Result Performing Organization Address [facility] Co de Phone Number [facility] [place] [address] * (ABNORMAL) Type and screen (05/29/2025 8:49 PM CDT) [facility] ABO Rh O Positive Poppy, indirect Positive(A) [facility] Blood 05/29/2025 8:49 PM CDT 05/29/2025 9:39 PM CDT Narrative [facility] - 05/29/2025 10:52 PM CDT Has the patient had Daratumumab or Isatuximab in the past 6 months?->Unknown Dinorah Kahn NP LAB BLOOD BANK TEST ORDERAB LES Final Result Performing Organization Address [facility] de Phone Number [facility] [place] [address] * Phosphorus (05/29/2025 8:49 PM CDT) [facility] Phosphorus, pl 2.8 2.3 - 4.5 mg/dL Blood 05/29/2025 8:49 PM CDT 05/29/2025 9:30 PM CDT Libia Suarez SWEET POTATO DISINTEGRATOR LAB BLOOD ORDERABLES Final Re sult Performing Organization Address [facility] Co de Phone Number [facility] [place] [address] * Magnesium (05/29/2025 8:49 PM CDT) [facility] Magnesium 2.4 1.4 - 2.5 mg/dL Blood 05/29/2025 8:49 PM CDT 05/29/2025 9:30 PM CDT Libia Suarez SWEET POTATO DISINTEGRATOR LAB BLOOD ORDERABLES Final Re sult Performing Organization Address [facility] de Phone Number [facility] [place] [address] * (ABNORMAL) Hepatic function panel (05/29/2025 8:49 PM CDT) [facility] Bilirubin, total 0.5 0.1 - 1.2 mg/dL Bilirubin, direct 0.3 0.1 - 0.3 mg/dL [facility] Protein, pl 5.3(L) 6.5 - 8.5 g/dL [facility] Albumin 3.5 3.5 - 5.0 g/dL [facility] Alk phos 160(H) 40 - 130 Units/L [facility] ALT 32 7 - 55 Units/L [facility] AST 24 10 - 50 Units/L [facility] Blood 05/29/2025 8:49 PM CDT 05/29/2025 9:30 PM CDT Libia Suarez SWEET POTATO DISINTEGRATOR LAB BLOOD ORDERABLES Final Re sult Performing Organization Address [facility] Co de Phone Number [facility] [place] [address] * (ABNORMAL) Basic metabolic panel (05/29/2025 8:49 PM CDT) [facility] Sodium 133(L) 135 - 145 mmol/L Potassium, pl 5.2(H) 3.3 - 4.9 mmol/L [facility] Chloride 100 97 - 110 mmol/L [facility] CO2 25 22 - 32 mmol/L [facility] Anion gap 8 2 - 15 mmol/L [facility] BUN 58(H) 6 - 25 mg/dL [facility] Creatinine 1.78(H) 0.80 - 1.30 mg/dL [facility] Glucose 288(H) 70 - 199 mg/dL [facility] Comment: Interpretive Data Fasting glucose >/= 126 mg/dl is diagnostic for diabetes. Fasting is defined as no caloric intake for at least 8 hours. Fasting glucose between 100 mg/dl to 125 mg/dl is diagnostic of prediabetes. In a patient with classic symptoms of hyperglycemia or hyperglycemic crisis, a random glucose >/= 200 mg/dl is diagnostic for diabetes. In the absence of unequivocal hyperglycemia, results should be confirmed by repeat testing. The classification and Diagnosis of Diabetes Diabetes Care 2021; 46: S19-S40. Current interpretive data was last revised 2022. Calcium 8.7 8.5 - 10.3 mg/dL [facility] Blood 05/29/2025 8:49 PM CDT 05/29/2025 9:30 PM CDT us Libia Suarez SWEET POTATO DISINTEGRATOR LAB BLOOD ORDERABLES Final Re sult [facility] [place] [address] * (ABNORMAL) POCT glucose (05/29/2025 8:13 PM CDT) [facility] Glucose, POC 284(H) 70 - 199 mg/dL Blood 05/29/2025 8:13 PM CDT 05/29/2025 8:13 PM CDT us Addy Tapia MD LAB POCT ORDERABLES - DE VICE Final Result [facility] [place] [address] * XR Chest 1 View (05/29/2025 7:49 PM CDT) Anatomical Region Laterality Modality Body, Chest N/A Digital Radiogra phy 05/30/2025 11:1 0 AM CDT Impressions 05/30/2025 11:10 AM CDT Comparison is made to prior chest radiograph dated 05/28/2025. Median sternotomy plates are unchanged compared to prior study. Tip of a right internal jugular central venous catheter terminates in the superior cavoatrial junction. Mediastinal drains are present. No significant interval change in small bilateral pleural effusions with associated atelectasis. No pneumothorax. Stable heart size. Electronically signed by: Kelsey Beauchamp M.D. Narrative 05/30/2025 11:10 AM CDT EXAMINATION: 1 view chest radiograph Procedure Note Kelsey Beauchamp MD - 05/30/2025 EXAMINATION: 1 view chest radiograph IMPRESSION: Comparison is made to prior chest radiograph dated 05/28/2025. Median sternotomy plates are unchanged compared to prior study. Tip of a right internal jugular central venous catheter terminates in the superior cavoatrial junction. Mediastinal drains are present. No significant interval change in small bilateral pleural effusions with associated atelectasis. No pneumothorax. Stable heart size. Electronically signed by: Kelsey Beauchamp M.D. Addy Tapia MD IMG XR PROCEDURES Final Result * (ABNORMAL) POCT glucose (05/29/2025 5:06 PM CDT) Glucose, POC 249(H) 70 - 199 mg/dL Blood 05/29/2025 5:06 PM CDT 05/29/2025 5:06 PM CDT Addy Tapia MD LAB POCT ORDERABLES - DE VICE Final Result [facility] [place] [address] * (ABNORMAL) Potassium, whole blood (05/29/2025 2:32 PM CDT) Pathologist [facility] Potassium, bld 5.1(H) 3.3 - 4.9 mmol/L Blood 05/29/2025 2:32 PM CDT 05/29/2025 2:40 PM CDT Bar Gamble MD LAB BLOOD ORDERABLES Final R esult Performing Organization Address City/[facility]/ZIP Co de Phone Number [facility] [place] [address] * POCT glucose (05/29/2025 11:27 AM CDT) [facility] Glucose, POC 196 70 - 199 mg/dL Blood 05/29/2025 11:2 7 AM CDT 05/29/2025 11:27 AM CDT Addy Tapia MD LAB POCT ORDERABLES - DE VICE Final Result Performing Organization Address [facility] Co de Phone Number [facility] [place] [address] * (ABNORMAL) eGFR (05/29/2025 7:31 AM CDT) [facility] eGFR 43(L) >=60 mL/min/1. 73 m2 Comment: Interpretive Data Reference Interval Normal >/= 90 mL/min/1.73m2 Mildly decreased* 60 - 89 mL/min/1.73m2 Mildly to moderately decreased 45 - 59 mL/min/1.73m2 Moderately to severely decreased 30 - 44 mL/min/1.73m2 Severely decreased 15 - 29 mL/min/1.73m2 Kidney Failure < 15 mL/min/1.73m2 *Relative to young adult level Estimated glomerular filtration rate is determined by the 2020 CKD-EPI equation recommended by the National Kidney Foundation (A Unifying Approach to GFR Estimation: Recommendations of the NKF-ASK Task Force on Reassessing the Inclusion of Race in Diagnosing Kidney Disease, JASN 2020). The CKD-EPI equation should not be used for patients with unstable renal function and has not been validated in children and those over 70. Current interpretive data was last reviewed 2021. Blood 05/29/2025 7:31 AM CDT 05/29/2025 7:38 AM CDT Addy Tapia MD LAB BLOOD ORDERABLES Fin al Result Performing Organization Address [facility]/ZIP Co de Phone Number [facility] [place] [address] * (ABNORMAL) Basic metabolic panel (05/29/2025 7:31 AM CDT) Sodium 138 135 - 145 mmol/L Potassium, pl 3.6 3.3 - 4.9 mmol/L [facility] Chloride 104 97 - 110 mmol/L [facility] CO2 26 22 - 32 mmol/L [facility] Anion gap 8 2 - 15 mmol/L [facility] BUN 56(H) 6 - 25 mg/dL [facility] Creatinine 1.77(H) 0.80 - 1.30 mg/dL [facility] Glucose 138 70 - 199 mg/dL [facility] Comment: Interpretive Data Fasting glucose >/= 126 mg/dl is diagnostic for diabetes. Fasting is defined as no caloric intake for at least 8 hours. Fasting glucose between 100 mg/dl to 125 mg/dl is diagnostic of prediabetes. In a patient with classic symptoms of hyperglycemia or hyperglycemic crisis, a random glucose >/= 200 mg/dl is diagnostic for diabetes. In the absence of unequivocal hyperglycemia, results should be confirmed by repeat testing. The classification and Diagnosis of Diabetes Diabetes Care 202; 46: S19-S40. Current interpretive data was last revised 2022. Calcium 9.0 8.5 - 10.3 mg/dL [facility] Blood 05/29/2025 7:31 AM CDT 05/29/2025 7:38 AM CDT Addy Tapia MD LAB BLOOD ORDERABLES Fin al Result Performing Organization Address [facility]/ZIP Co de Phone Number [facility] [place] [address] * POCT glucose (05/29/2025 7:28 AM CDT) Glucose, POC 139 70 - 199 mg/dL Blood 05/29/2025 7:28 AM CDT 05/29/2025 7:28 AM CDT Addy Tapia MD LAB POCT ORDERABLES - DE VICE Final Result Performing Organization Address [facility] [place] [address] * Tacrolimus level trough (05/29/2025 5:24 AM CDT) [facility] Tacrolimus trough 6.4 ng/mL Comment: Interpretive Data Testing performed by liquid chromatography-tandem mass spectrometry. Therapeutic concentrations vary depending on type of transplanted organ and time elapsed since transplant. Typical trough concentrations range from 5-15 ng/mL. This test was developed and its performance characteristics determined by the [facility] consistent with CLIA requirements. This test has not been cleared or approved by the US Food and Drug administration. Current interpretive data last reviewed 2020. Blood 05/29/2025 5:24 AM CDT 05/29/2025 5:31 AM CDT Zev Cowart MD PhD LAB BLOOD ORDERABLES Fi nal Result Performing Organization Address City/[facility]/ZIP Co de Phone Number DULCE MARIA [facility] [place] [address] * Potassium, whole blood (05/28/2025 11:51 PM CDT) Pathologist [facility] Potassium, bld 4.1 3.3 - 4.9 mmol/L Blood 05/28/2025 11:5 1 PM CDT 05/29/2025 12:03 AM CDT Addy Tapia MD LAB BLOOD ORDERABLES Fin al Result Performing Organization Address [facility] de Phone Number [facility] [place] [address] * (ABNORMAL) eGFR (05/28/2025 11:51 PM CDT) eGFR 40(L) >=60 mL/min/1. 73 m2 Comment: Interpretive Data Reference Interval Normal >/= 90 mL/min/1.73m2 Mildly decreased* 60 - 89 mL/min/1.73m2 Mildly to moderately decreased 45 - 59 mL/min/1.73m2 Moderately to severely decreased 30 - 44 mL/min/1.73m2 Severely decreased 15 - 29 mL/min/1.73m2 Kidney Failure < 15 mL/min/1.73m2 *Relative to young adult level Estimated glomerular filtration rate is determined by the 2020 CKD-EPI equation recommended by the National Kidney Foundation (A Unifying Approach to GFR Estimation: Recommendations of the NKF-ASK Task Force on Reassessing the Inclusion of Race in Diagnosing Kidney Disease, JASN 2020). The CKD-EPI equation should not be used for patients with unstable renal function and has not been validated in children and those over 70. Current interpretive data was last reviewed 2021. Blood 05/28/2025 11:5 1 PM CDT 05/29/2025 1:00 AM CDT Addy Tapia MD LAB BLOOD ORDERABLES Fin al Result Performing Organization Address [facility] Co de Phone Number DULCE MARIA ARANDA [facility] [place] [address] * (ABNORMAL) CBC without differential (05/28/2025 11:51 PM CDT) WBC 11.90(H) 3.80 - 9.90 K/cumm Hgb 7.9(L) 13.0 - 17.5 g/dL [facility] Hct 24.1(L) 38.9 - 50.3 % [facility] Plt 166 150 - 400 K/cumm [facility] MPV 10.8 9.1 - 12.[address] [facility] RBC 2.92(L) 4.30 - 5.80 M/cumm [facility] MCV 82.5 81.3 - 96.[address] [facility] MCH 27.1 27.1 - 33.[address] [facility] MCHC 32.8 32.3 - 35.7 g/dL [facility] RDW CV 14.6 11.1 - 14.9 % [facility] RDW SD 43.3 35.7 - 48.[address] [facility] NRBC abs 0.00 0.00 - 0.01 K/cumm [facility] Blood 05/28/2025 11:5 1 PM CDT 05/29/2025 12:15 AM CDT Addy Tapia MD LAB BLOOD ORDERABLES Fin al Result Performing Organization Address City/[facility]/ZIP Co de Phone Number [facility] [place] [address] * Phosphorus (05/28/2025 11:51 PM CDT) Phosphorus, pl 2.8 2.3 - 4.5 mg/dL Blood 05/28/2025 11:5 1 PM CDT 05/29/2025 12:25 AM CDT Addy Tapia MD LAB BLOOD ORDERABLES Fin al Result [facility] [place] [address] * Magnesium (05/28/2025 11:51 PM CDT) Magnesium 1.8 1.4 - 2.5 mg/dL Blood 05/28/2025 11:5 1 PM CDT 05/29/2025 12:25 AM CDT us Addy Tapia MD LAB BLOOD ORDERABLES Fin al Result Performing Organization Address [facility] Co de Phone Number [facility] [place] [address] * (ABNORMAL) Hepatic function panel (05/28/2025 11:51 PM CDT) Pathologist [facility] Bilirubin, total 0.5 0.1 - 1.2 mg/dL Bilirubin, direct 0.3 0.1 - 0.3 mg/dL [facility] Protein, pl 5.2(L) 6.5 - 8.5 g/dL [facility] Albumin 3.3(L) 3.5 - 5.0 g/dL [facility] Alk phos 127 40 - 130 Units/L [facility] ALT 20 7 - 55 Units/L [facility] AST 19 10 - 50 Units/L [facility] Blood 05/28/2025 11:5 1 PM CDT 05/29/2025 12:25 AM CDT us Bar Gamble MD LAB BLOOD ORDERABLES Final R esult Performing Organization Address [facility] Co de Phone Number [facility] [place] [address] * (ABNORMAL) Basic metabolic panel (05/28/2025 11:51 PM CDT) Sodium 138 135 - 145 mmol/L Potassium, pl 4.1 3.3 - 4.9 mmol/L [facility] Chloride 101 97 - 110 mmol/L [facility] CO2 25 22 - 32 mmol/L [facility] Anion gap 12 2 - 15 mmol/L [facility] BUN 56(H) 6 - 25 mg/dL [facility] Creatinine 1.87(H) 0.80 - 1.30 mg/dL [facility] Glucose 234(H) 70 - 199 mg/dL [facility] Comment: Interpretive Data Fasting glucose >/= 126 mg/dl is diagnostic for diabetes. Fasting is defined as no caloric intake for at least 8 hours. Fasting glucose between 100 mg/dl to 125 mg/dl is diagnostic of prediabetes. In a patient with classic symptoms of hyperglycemia or hyperglycemic crisis, a random glucose >/= 200 mg/dl is diagnostic for diabetes. In the absence of unequivocal hyperglycemia, results should be confirmed by repeat testing. The classification and Diagnosis of Diabetes Diabetes Care 2021; 46: S19-S40. Current interpretive data was last revised 2022. Calcium 8.5 8.5 - 10.3 mg/dL [facility] Blood 05/28/2025 11:5 1 PM CDT 05/29/2025 12:25 AM CDT Addy Tapia MD LAB BLOOD ORDERABLES Fin al Result Performing Organization Address [facility] Co de Phone Number [facility] [place] [address] * (ABNORMAL) POCT glucose (05/28/2025 11:45 PM CDT) Pathologist [facility] Glucose, POC 233(H) 70 - 199 mg/dL Blood 05/28/2025 11:4 5 PM CDT 05/28/2025 11:45 PM CDT Addy Tapia MD LAB POCT ORDERABLES - DE VICE Final Result Performing Organization Address [facility] Co de Phone Number [facility] [place] [address] * ECG 12 lead (05/28/2025 11:29 PM CDT) Ventricular Rate EKG/Min 101 BPM [facility] Atrial Rate 101 BPM [facility] MS-Interval (MSEC) 132 ms [facility] QRS-Interval (MSEC) 66 ms [facility] QT-Interval (MSEC) 350 ms [facility] QTc 453 ms [facility] P [place]am 67 degrees [facility] R Pe[place]am 55 degrees [facility] T Peacham -7 degrees [facility] Diagnosis Sinus tachycardia with Premature atrial complexes Poor r wave progression associated with abnormal lead placement, obesity, pulmonary disease, anterior infarction. noted 01-JUL-2021) possible inferior infarction noted April 08, 2025 Abnormal ECG When compared with ECG of 02-MAY-2025 16:11, MS interval has decreased Incomplete right bundle branch block is no longer Present Confirmed by MERARY ZEPEDA M.D ([id number]) on 05/29/2025 10:01:54 AM [facility] 05/28/2025 11:2 9 PM CDT 05/29/2025 10:01 AM CDT us Zev Cowart MD PhD ECG ORDERABLES Final R esult [facility] * (ABNORMAL) POCT glucose (05/28/2025 8:08 PM CDT) Glucose, POC 246(H) 70 - 199 mg/dL Blood 05/28/2025 8:08 PM CDT 05/28/2025 8:08 PM CDT us Addy Tapia MD LAB POCT ORDERABLES - DE VICE Final Result Performing Organization Address City/[facility]/ZIP Co de Phone Number [facility] [place] [address] * XR Chest 1 View (05/28/2025 8:06 PM CDT) Anatomical Region Laterality Modality Body, Chest N/A Computed Radiogr aphy 05/29/2025 11:0 7 AM CDT Impressions 05/29/2025 11:07 AM CDT Comparison is made to chest radiograph dated 05/27/2025. Median sternotomy plates in place. Mediastinal and pericardial drains in place. Interval removal of feeding tube. Right internal jugular approach central venous catheter terminates in the superior cavoatrial junction. Bilateral mild pleural effusions and bibasilar atelectasis unchanged from prior. No pneumothorax. Gosia Mayberry (medical student) participated in the interpretation of this imaging study. Electronically signed by: Jamie Lugo M.D. Narrative 05/29/2025 11:07 AM CDT EXAMINATION: 1 view chest radiograph Procedure Note Jamie Lugo MD - 05/29/2025 EXAMINATION: 1 view chest radiograph IMPRESSION: Comparison is made to chest radiograph dated 05/27/2025. Median sternotomy plates in place. Mediastinal and pericardial drains in place. Interval removal of feeding tube. Right internal jugular approach central venous catheter terminates in the superior cavoatrial junction. Bilateral mild pleural effusions and bibasilar atelectasis unchanged from prior. No pneumothorax. Gosia Mayberry (medical student) participated in the interpretation of this imaging study. Electronically signed by: Jamie Lugo M.D. Addy Tapia MD IMG XR PROCEDURES Final Result * Potassium, whole blood (05/28/2025 4:14 PM CDT) Potassium, bld 4.4 3.3 - 4.9 mmol/L Blood 05/28/2025 4:14 PM CDT 05/28/2025 4:23 PM CDT Bar Gamble MD LAB BLOOD ORDERABLES Final R esult Performing Organization Address City/State/[facility] Co de Phone Number [facility] [place] [address] * (ABNORMAL) eGFR (05/28/2025 4:14 PM CDT) eGFR 37(L) >=60 mL/min/1. 73 m2 Comment: Interpretive Data Reference Interval Normal >/= 90 mL/min/1.73m2 Mildly decreased* 60 - 89 mL/min/1.73m2 Mildly to moderately decreased 45 - 59 mL/min/1.73m2 Moderately to severely decreased 30 - 44 mL/min/1.73m2 Severely decreased 15 - 29 mL/min/1.73m2 Kidney Failure < 15 mL/min/1.73m2 *Relative to young adult level Estimated glomerular filtration rate is determined by the 2020 CKD-EPI equation recommended by the National Kidney Foundation (A Unifying Approach to GFR Estimation: Recommendations of the NKF-ASK Task Force on Reassessing the Inclusion of Race in Diagnosing Kidney Disease, JASN 2020). The CKD-EPI equation should not be used for patients with unstable renal function and has not been validated in children and those over 70. Current interpretive data was last reviewed 2021. Blood 05/28/2025 4:14 PM CDT 05/28/2025 4:29 PM CDT Addy Tapia MD LAB BLOOD ORDERABLES Fin al Result [facility] [place] [address] * (ABNORMAL) Basic metabolic panel (05/28/2025 4:14 PM CDT) Pathologist [facility] Sodium 139 135 - 145 mmol/L Potassium, pl 4.4 3.3 - 4.9 mmol/L [facility] Chloride 104 97 - 110 mmol/L [facility] CO2 26 22 - 32 mmol/L [facility] Anion gap 9 2 - 15 mmol/L [facility] BUN 60(H) 6 - 25 mg/dL [facility] Creatinine 2.02(H) 0.80 - 1.30 mg/dL [facility] Glucose 278(H) 70 - 199 mg/dL [facility] Comment: Interpretive Data Fasting glucose >/= 126 mg/dl is diagnostic for diabetes. Fasting is defined as no caloric intake for at least 8 hours. Fasting glucose between 100 mg/dl to 125 mg/dl is diagnostic of prediabetes. In a patient with classic symptoms of hyperglycemia or hyperglycemic crisis, a random glucose >/= 200 mg/dl is diagnostic for diabetes. In the absence of unequivocal hyperglycemia, results should be confirmed by repeat testing. The classification and Diagnosis of Diabetes Diabetes Care 202; 46: S19-S40. Current interpretive data was last revised 2022. Calcium 8.9 8.5 - 10.3 mg/dL [facility] Blood 05/28/2025 4:14 PM CDT 05/28/2025 4:29 PM CDT Addy Tapia MD LAB BLOOD ORDERABLES Fin al Result [facility] [place] [address] * (ABNORMAL) POCT glucose (05/28/2025 4:13 PM CDT) Glucose, POC 275(H) 70 - 199 mg/dL Blood 05/28/2025 4:13 PM CDT 05/28/2025 4:13 PM CDT Addy Tapia MD LAB POCT ORDERABLES - DE VICE Final Result Performing Organization Address [facility] Co de Phone Number [facility] [place] [address] * SHREDDING SPECIALIST Evaluation and Treatment (05/28/2025 12:22 PM CDT) Narrative Katerina Castro, JOHN - 05/28/2025 12:22 PM CDT Katerina Castro, JOHN 05/28/2025 1:20 PM Speech-Language Pathology: Clinical Bedside Swallow [facility] 59 y.o. 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 05/21 OHT, extubated 05/22 Passed hardy swallow screen. 05/28: Colonic ileus resolved, consult to SHREDDING SPECIALIST versus need to start EN if he remains NPO. Respiratory/Intubation Status:05/20-05/21, now RA Imaging: CXR (05/27)- Bilateral pleural effusions unchanged from previous. Bibasilar atelectasis improved from previous. No pulmonary edema. No pneumothorax. Precautions: fall PLOF: He reports that he lives at home with his . He is able to perform all ADLs and most IDLs though he does report significant fatigue and weakness. He denies any tobacco, alcohol, or illicit drug use. He reports that he used to live a very active lifestyle prior to being diagnosed with amyloidosis. Current Diet Order:NPO, FT Baseline Diet: regular/regular, per pt report General Information Gosia Zuniga 05/28/25 General Observations: Pt seated upright in the chair and alert t/o evaluation. RN agreeable to PO trials. Pt was pleasant and cooperative, readily followed commands, self-fed PO trials, eager to start drinking, voice is WFL. Pain Score: (none reported, RN present) If pain >4, was RN notified? N/A Patient Stated Goal/Comments: to drink ice water Clinical Impression & Professional Recommendations Diet Solids Recommendation: Regular Diet Liquids Recommendations: Thin/regular Recommended Form of Medications: As tolerated Compensatory Strategies/Modifications: Slow rate, Single sips, Small bites Postural Recommendations: Upright Assistance with feeding/swallowing: Assist with aggressive oral hygiene prior to po Specialty Instructions: none Dysphagia Diagnosis: No suspected dysphagia, oral-pharyngeal function appears WFL Overall Clinical Impression/Additional Information: Pt completed PO trials of ice chips, thin liquids via tsp/cup/straw sip (including multiple 3oz), puree, and dry solid. Pt with adequate mastication and complete oral clearance. No overt signs and symptoms of penetration/aspiration t/o trials. Assessment Details & Results Consistencies Administered: Ice chips, Thin liquids, Purees, Solids MASA: [place] Assessment of Swallowing Ability (MASA) Alertness: Alert Cooperation: Cooperative Auditory Comprehension: No abnormality detected Respiration: Chest clear Respiratory Rate (for swallow): Able to control breath rate for swallow Aphasia: No abnormality detected Apraxia: No abnormality detected Dysarthria: No abnormality detected Saliva: No abnormality detected Lip Seal: No abnormality detected Tongue Movement: Full range of motion Tongue Strength: No abnormality detected Tongue Coordination: No abnormality detected Gag: No gag (DNT) Palate: No abnormality detected Cough Reflex: No deficit noted Voluntary Cough: No abnormality detected Voice: No abnormality detected Trach: No trach Oral Preparation: No deficits noted Bolus Clearance: Fully cleared Oral Transit: No deficits noted Pharyngeal Phase: Immediate laryngeal elevation Pharyngeal Response: No deficits noted MASA Score: 196 Dysphagia: No dysphagia detected (178-200) Aspiration Risk: No aspiration risk (170-200) Plan SHREDDING SPECIALIST Frequency of Services during current admission: One-time visit (Discharge from this service) SHREDDING SPECIALIST Recommendation (Add'l Services): No further SHREDDING SPECIALIST indicated Next Visit Plan:No further ST warranted Additional Referrals: RD f/u Please reference care plan for treatment goals, if indicated. Discharge Summary Statement If this is the last swallow therapy visit, this serves as the discharge summary. us Addy Tapia MD SHREDDING SPECIALIST ORDERABLES Final Re sult * POCT glucose (05/28/2025 11:08 AM CDT) Glucose, POC 166 70 - 199 mg/dL Blood 05/28/2025 11:0 8 AM CDT 05/28/2025 11:08 AM CDT Addy Tapia MD LAB POCT ORDERABLES - DE VICE Final Result DULCE MARIA [facility] [place] [address] * (ABNORMAL) eGFR (05/28/2025 9:58 AM CDT) eGFR 33(L) >=60 mL/min/1. 73 m2 Comment: Interpretive Data Reference Interval Normal >/= 90 mL/min/1.73m2 Mildly decreased* 60 - 89 mL/min/1.73m2 Mildly to moderately decreased 45 - 59 mL/min/1.73m2 Moderately to severely decreased 30 - 44 mL/min/1.73m2 Severely decreased 15 - 29 mL/min/1.73m2 Kidney Failure < 15 mL/min/1.73m2 *Relative to young adult level Estimated glomerular filtration rate is determined by the 2020 CKD-EPI equation recommended by the National Kidney Foundation (A Unifying Approach to GFR Estimation: Recommendations of the NKF-ASK Task Force on Reassessing the Inclusion of Race in Diagnosing Kidney Disease, JASN 2020). The CKD-EPI equation should not be used for patients with unstable renal function and has not been validated in children and those over 70. Current interpretive data was last reviewed 2021. Blood 05/28/2025 9:58 AM CDT 05/28/2025 10:10 AM CDT Addy Tapia MD LAB BLOOD ORDERABLES Fin al Result [facility] [place] [address] * (ABNORMAL) Basic metabolic panel (05/28/2025 9:58 AM CDT) Sodium 142 135 - 145 mmol/L Potassium, pl 3.6 3.3 - 4.9 mmol/L [facility] Chloride 105 97 - 110 mmol/L [facility] CO2 27 22 - 32 mmol/L [facility] Anion gap 10 2 - 15 mmol/L [facility] BUN 64(H) 6 - 25 mg/dL [facility] Creatinine 2.23(H) 0.80 - 1.30 mg/dL [facility] Glucose 134 70 - 199 mg/dL [facility] Comment: Interpretive Data Fasting glucose >/= 126 mg/dl is diagnostic for diabetes. Fasting is defined as no caloric intake for at least 8 hours. Fasting glucose between 100 mg/dl to 125 mg/dl is diagnostic of prediabetes. In a patient with classic symptoms of hyperglycemia or hyperglycemic crisis, a random glucose >/= 200 mg/dl is diagnostic for diabetes. In the absence of unequivocal hyperglycemia, results should be confirmed by repeat testing. The classification and Diagnosis of Diabetes Diabetes Care 2021; 46: S19-S40. Current interpretive data was last revised 2022. Calcium 9.0 8.5 - 10.3 mg/dL [facility] Blood 05/28/2025 9:58 AM CDT 05/28/2025 10:10 AM CDT Addy Tapia MD LAB BLOOD ORDERABLES Fin al Result Performing Organization Address [facility] Co de Phone Number DULCE MARIA [facility] [place] [address] * Tacrolimus level trough (05/28/2025 8:30 AM CDT) Tacrolimus trough 4.2 ng/mL Comment: Interpretive Data Testing performed by liquid chromatography-tandem mass spectrometry. Therapeutic concentrations vary depending on type of transplanted organ and time elapsed since transplant. Typical trough concentrations range from 5-15 ng/mL. This test was developed and its performance characteristics determined by the [facility] consistent with CLIA requirements. This test has not been cleared or approved by the US Food and Drug administration. Current interpretive data last reviewed 2020. Blood 05/28/2025 8:30 AM CDT 05/28/2025 9:06 AM CDT Addy Tapia MD LAB BLOOD ORDERABLES Fin al Result Performing Organization Address [facility] [facility] [place] [address] * POCT glucose (05/28/2025 7:44 AM CDT) Glucose, POC 126 70 - 199 mg/dL Blood 05/28/2025 7:44 AM CDT 05/28/2025 7:44 AM CDT Addy Tapia MD LAB POCT ORDERABLES - DE VICE Final Result Performing Organization Address [facility] Co de Phone Number DULCE MARIA [facility] [place] [address] * POCT glucose (05/28/2025 4:16 AM CDT) Glucose, POC 187 70 - 199 mg/dL Blood 05/28/2025 4:16 AM CDT 05/28/2025 4:16 AM CDT Addy Tapia MD LAB POCT ORDERABLES - DE VICE Final Result Performing Organization Address [facility] Phone Number [facility] [place] [address] * Potassium, whole blood (05/28/2025 2:01 AM CDT) Potassium, bld 3.5 3.3 - 4.9 mmol/L Blood 05/28/2025 2:01 AM CDT 05/28/2025 2:22 AM CDT Result [facility] Addy Tapia MD LAB BLOOD ORDERABLES Fin al Result Performing Organization Address [facility] Phone Number [facility] [place] [address] * Tacrolimus level trough (05/28/2025 2:01 AM CDT) Tacrolimus trough 5.8 ng/mL Comment: Interpretive Data Testing performed by liquid chromatography-tandem mass spectrometry. Therapeutic concentrations vary depending on type of transplanted organ and time elapsed since transplant. Typical trough concentrations range from 5-15 ng/mL. This test was developed and its performance characteristics determined by the [facility] consistent with CLIA requirements. This test has not been cleared or approved by the US Food and Drug administration. Current interpretive data last reviewed 2020. Blood 05/28/2025 2:01 AM CDT 05/28/2025 2:28 AM CDT Zev Cowart MD PhD LAB BLOOD ORDERABLES Fi nal Result Performing Organization Address [facility] Co de Phone Number [facility] [place] [address] * (ABNORMAL) CBC without differential (05/28/2025 2:01 AM CDT) Pathologist [facility] WBC 11.31(H) 3.80 - 9.90 K/cumm Hgb 8.2(L) 13.0 - 17.5 g/dL [facility] Hct 24.6(L) 38.9 - 50.3 % [facility] Plt 143(L) 150 - 400 K/cumm [facility] MPV 11.1 9.1 - 12.[address] [facility] RBC 3.02(L) 4.30 - 5.80 M/cumm [facility] MCV 81.5 81.3 - 96.[address] [facility] MCH 27.2 27.1 - 33.[address] [facility] MCHC 33.3 32.3 - 35.7 g/dL [facility] RDW CV 14.8 11.1 - 14.9 % [facility] RDW SD 43.8 35.7 - 48.[address] [facility] NRBC abs 0.00 0.00 - 0.01 K/cumm [facility] Blood 05/28/2025 2:01 AM CDT 05/28/2025 2:28 AM CDT Addy Tapia MD LAB BLOOD ORDERABLES Fin al Result Performing Organization Address [facility] de Phone Number [facility] [place] [address] * Phosphorus (05/28/2025 2:01 AM CDT) Pathologist [facility] Phosphorus, pl 2.6 2.3 - 4.5 mg/dL Blood 05/28/2025 2:01 AM CDT 05/28/2025 2:28 AM CDT Addy Tapia MD LAB BLOOD ORDERABLES Fin al Result Performing Organization Address City/[facility] Co de Phone Number [facility] [place] [address] * Magnesium (05/28/2025 2:01 AM CDT) Pathologist [facility] Magnesium 2.0 1.4 - 2.5 mg/dL Blood 05/28/2025 2:01 AM CDT 05/28/2025 2:28 AM CDT Addy Tapia MD LAB BLOOD ORDERABLES Fin al Result Performing Organization Address [facility] Co de Phone Number [facility] [place] [address] * (ABNORMAL) Hepatic function panel (05/28/2025 2:01 AM CDT) [facility] Bilirubin, total 0.8 0.1 - 1.2 mg/dL Bilirubin, direct 0.5(H) 0.1 - 0.3 mg/dL [facility] Protein, pl 5.7(L) 6.5 - 8.5 g/dL [facility] Albumin 3.7 3.5 - 5.0 g/dL [facility] Alk phos 132(H) 40 - 130 Units/L [facility] ALT 21 7 - 55 Units/L [facility] AST 17 10 - 50 Units/L [facility] Blood 05/28/2025 2:01 AM CDT 05/28/2025 2:28 AM CDT Bar Gamble MD LAB BLOOD ORDERABLES Final R esult Performing Organization Address [facility] Co de Phone Number [facility] [place] [address] * (ABNORMAL) eGFR (05/27/2025 11:43 PM CDT) [facility] eGFR 34(L) >=60 mL/min/1. 73 m2 Comment: Interpretive Data Reference Interval Normal >/= 90 mL/min/1.73m2 Mildly decreased* 60 - 89 mL/min/1.73m2 Mildly to moderately decreased 45 - 59 mL/min/1.73m2 Moderately to severely decreased 30 - 44 mL/min/1.73m2 Severely decreased 15 - 29 mL/min/1.73m2 Kidney Failure < 15 mL/min/1.73m2 *Relative to young adult level Estimated glomerular filtration rate is determined by the 2020 CKD-EPI equation recommended by the National Kidney Foundation (A Unifying Approach to GFR Estimation: Recommendations of the NKF-ASK Task Force on Reassessing the Inclusion of Race in Diagnosing Kidney Disease, JASN 202). The CKD-EPI equation should not be used for patients with unstable renal function and has not been validated in children and those over 70. Current interpretive data was last reviewed 2021. Blood 05/27/2025 11:4 3 PM CDT 05/28/2025 12:08 AM CDT Addy Tapia MD LAB BLOOD ORDERABLES Fin al Result [facility] [place] [address] * (ABNORMAL) Basic metabolic panel (05/27/2025 11:43 PM CDT) Sodium 149(H) 135 - 145 mmol/L Potassium, pl 3.7 3.3 - 4.9 mmol/L [facility] Chloride 108 97 - 110 mmol/L [facility] CO2 29 22 - 32 mmol/L [facility] Anion gap 12 2 - 15 mmol/L [facility] BUN 68(H) 6 - 25 mg/dL [facility] Creatinine 2.18(H) 0.80 - 1.30 mg/dL [facility] Glucose 158 70 - 199 mg/dL [facility] Comment: Interpretive Data Fasting glucose >/= 126 mg/dl is diagnostic for diabetes. Fasting is defined as no caloric intake for at least 8 hours. Fasting glucose between 100 mg/dl to 125 mg/dl is diagnostic of prediabetes. In a patient with classic symptoms of hyperglycemia or hyperglycemic crisis, a random glucose >/= 200 mg/dl is diagnostic for diabetes. In the absence of unequivocal hyperglycemia, results should be confirmed by repeat testing. The classification and Diagnosis of Diabetes Diabetes Care 2021; 46: S19-S40. Current interpretive data was last revised 2022. Calcium 9.1 8.5 - 10.3 mg/dL [facility] Blood 05/27/2025 11:4 3 PM CDT 05/28/2025 12:08 AM CDT Addy Tapia MD LAB BLOOD ORDERABLES Fin al Result [facility] [place] [address] * POCT glucose (05/27/2025 11:00 PM CDT) [facility] Signature Glucose, POC 120 70 - 199 mg/dL Blood 05/27/2025 11:0 0 PM CDT 05/27/2025 11:00 PM CDT Addy Tapia MD LAB POCT ORDERABLES - DE VICE Final Result Performing Organization Address [facility] Co de Phone Number [facility] [place] [address] * XR Chest 1 View (05/27/2025 8:57 PM CDT) Anatomical Region Laterality Modality Body, Chest N/A Computed Radiogr aphy 05/28/2025 9:57 AM CDT Impressions 05/28/2025 12:45 PM CDT The current study is compared with the prior radiograph dated 05/26/2025 at 6:39 PM Median sternotomy plates in place. Mediastinal and pericardial drains in place. Interval removal of [place] catheter. Gastric tube courses below the hemidiaphragm and terminates below the [id number]. A right internal jugular catheter is in place, tip overlies the right atrium. Bilateral pleural effusions unchanged from previous. Bibasilar atelectasis improved from previous. No pulmonary edema. No pneumothorax. Dictated by: Shane Pena M.D. The radiology attending physician has personally reviewed this study, and had reviewed and/or edited this written report and agrees with it. Electronically signed by: Kristian Hagan M.D. Narrative 05/28/2025 12:45 PM CDT EXAMINATION: 1 view chest radiograph Procedure Note Kristian Hagan MD - 05/28/2025 EXAMINATION: 1 view chest radiograph IMPRESSION: The current study is compared with the prior radiograph dated 05/26/2025 at 6:39 PM Median sternotomy plates in place. Mediastinal and pericardial drains in place. Interval removal of [place] catheter. Gastric tube courses below the hemidiaphragm and terminates below the [id number]. A right internal jugular catheter is in place, tip overlies the right atrium. Bilateral pleural effusions unchanged from previous. Bibasilar atelectasis improved from previous. No pulmonary edema. No pneumothorax. Dictated by: Shane Pena M.D. The radiology attending physician has personally reviewed this study, and had reviewed and/or edited this written report and agrees with it. Electronically signed by: Kristian Hagan M.D. Addy Tapia MD IMG XR PROCEDURES Final Result * (ABNORMAL) POCT glucose (05/27/2025 7:49 PM CDT) Glucose, POC 241(H) 70 - 199 mg/dL Blood 05/27/2025 7:49 PM CDT 05/27/2025 7:49 PM CDT Addy Tapia MD LAB POCT ORDERABLES - DE VICE Final Result DULCE MAR[facility] [place] [address] * (ABNORMAL) POCT glucose (05/27/2025 5:26 PM CDT) Glucose, POC 207(H) 70 - 199 mg/dL Comment:Glu2: RN/MD Notified Glucose comment 1 Glu2: RN/MD Notified DULCE AMRIA [facility] Blood 05/27/2025 5:26 PM CDT 05/27/2025 5:26 PM CDT Addy Tapia MD LAB POCT ORDERABLES - DE VICE Final Result Performing Organization Address [facility] Co de Phone Number [facility] [place] [address] * (ABNORMAL) eGFR (05/27/2025 5:21 PM CDT) eGFR 32(L) >=60 mL/min/1. 73 m2 Comment: Interpretive Data Reference Interval Normal >/= 90 mL/min/1.73m2 Mildly decreased* 60 - 89 mL/min/1.73m2 Mildly to moderately decreased 45 - 59 mL/min/1.73m2 Moderately to severely decreased 30 - 44 mL/min/1.73m2 Severely decreased 15 - 29 mL/min/1.73m2 Kidney Failure < 15 mL/min/1.73m2 *Relative to young adult level Estimated glomerular filtration rate is determined by the 2020 CKD-EPI equation recommended by the National Kidney Foundation (A Unifying Approach to GFR Estimation: Recommendations of the NKF-ASK Task Force on Reassessing the Inclusion of Race in Diagnosing Kidney Disease, JASN 2020). The CKD-EPI equation should not be used for patients with unstable renal function and has not been validated in children and those over 70. Current interpretive data was last reviewed 2021. Blood 05/27/2025 5:21 PM CDT 05/27/2025 5:55 PM CDT Addy Tapia MD LAB BLOOD ORDERABLES Fin al Result Performing Organization Address [facility]/ZIP Co de Phone Number [facility] [place] [address] * (ABNORMAL) Basic metabolic panel (05/27/2025 5:21 PM CDT) Sodium 149(H) 135 - 145 mmol/L Potassium, pl 4.0 3.3 - 4.9 mmol/L [facility] Chloride 108 97 - 110 mmol/L [facility] CO2 29 22 - 32 mmol/L [facility] Anion gap 12 2 - 15 mmol/L [facility] BUN 71(H) 6 - 25 mg/dL [facility] Creatinine 2.27(H) 0.80 - 1.30 mg/dL [facility] Glucose 241(H) 70 - 199 mg/dL [facility] Comment: Interpretive Data Fasting glucose >/= 126 mg/dl is diagnostic for diabetes. Fasting is defined as no caloric intake for at least 8 hours. Fasting glucose between 100 mg/dl to 125 mg/dl is diagnostic of prediabetes. In a patient with classic symptoms of hyperglycemia or hyperglycemic crisis, a random glucose >/= 200 mg/dl is diagnostic for diabetes. In the absence of unequivocal hyperglycemia, results should be confirmed by repeat testing. The classification and Diagnosis of Diabetes Diabetes Care 2021; 46: S19-S40. Current interpretive data was last revised 2022. Calcium 9.5 8.5 - 10.3 mg/dL [facility] Blood 05/27/2025 5:21 PM CDT 05/27/2025 5:55 PM CDT Addy Tapia MD LAB BLOOD ORDERABLES Fin al Result [facility] [place] [address] * POCT glucose (05/27/2025 12:03 PM CDT) Glucose, POC 194 70 - 199 mg/dL Blood 05/27/2025 12:0 3 PM CDT 05/27/2025 12:03 PM CDT Addy Tapia MD LAB POCT ORDERABLES - DE VICE Final Result Performing Organization Address [facility] Co de Phone Number DULCE MARIA [facility] [place] [address] * (ABNORMAL) eGFR (05/27/2025 9:55 AM CDT) eGFR 30(L) >=60 mL/min/1. 73 m2 Comment: Interpretive Data Reference Interval Normal >/= 90 mL/min/1.73m2 Mildly decreased* 60 - 89 mL/min/1.73m2 Mildly to moderately decreased 45 - 59 mL/min/1.73m2 Moderately to severely decreased 30 - 44 mL/min/1.73m2 Severely decreased 15 - 29 mL/min/1.73m2 Kidney Failure < 15 mL/min/1.73m2 *Relative to young adult level Estimated glomerular filtration rate is determined by the 2020 CKD-EPI equation recommended by the National Kidney Foundation (A Unifying Approach to GFR Estimation: Recommendations of the NKF-ASK Task Force on Reassessing the Inclusion of Race in Diagnosing Kidney Disease, JASN 2020). The CKD-EPI equation should not be used for patients with unstable renal function and has not been validated in children and those over 70. Current interpretive data was last reviewed 2021. Blood 05/27/2025 9:55 AM CDT 05/27/2025 10:26 AM CDT Addy Tapia MD LAB BLOOD ORDERABLES Fin al Result Performing Organization Address [facility] Co de Phone Number DULCE MARIA [facility] [place] [address] * (ABNORMAL) Basic metabolic panel (05/27/2025 9:55 AM CDT) Sodium 150(H) 135 - 145 mmol/L Potassium, pl 3.9 3.3 - 4.9 mmol/L [facility] Comment:Hemolyzed; Potassium value may be falsely elevated by as much as 0.3-0.5 mmol/L. Suggest redraw and reanalysis. Chloride 107 97 - 110 mmol/L [facility] CO2 29 22 - 32 mmol/L [facility] Anion gap 14 2 - 15 mmol/L [facility] BUN 77(H) 6 - 25 mg/dL [facility] Creatinine 2.37(H) 0.80 - 1.30 mg/dL [facility] Glucose 157 70 - 199 mg/dL [facility] Comment: Interpretive Data Fasting glucose >/= 126 mg/dl is diagnostic for diabetes. Fasting is defined as no caloric intake for at least 8 hours. Fasting glucose between 100 mg/dl to 125 mg/dl is diagnostic of prediabetes. In a patient with classic symptoms of hyperglycemia or hyperglycemic crisis, a random glucose >/= 200 mg/dl is diagnostic for diabetes. In the absence of unequivocal hyperglycemia, results should be confirmed by repeat testing. The classification and Diagnosis of Diabetes Diabetes Care 2021; 46: S19-S40. Current interpretive data was last revised 2022. Calcium 9.5 8.5 - 10.3 mg/dL [facility] Blood 05/27/2025 9:55 AM CDT 05/27/2025 10:26 AM CDT Addy Tapia MD LAB BLOOD ORDERABLES Fin al Result Performing Organization Address City/[facility]/ZIP Co de Phone Number [facility] [place] [address] * POCT glucose (05/27/2025 7:36 AM CDT) [facility] Glucose, POC 155 70 - 199 mg/dL Comment:Glu2: RN/MD Notified Glucose comment 1 Glu2: RN/MD Notified [facility] Blood 05/27/2025 7:36 AM CDT 05/27/2025 7:36 AM CDT Addy Tapia MD LAB POCT ORDERABLES - DE VICE Final Result Performing Organization Address City/[facility]/ZIP Co de Phone Number [facility] [place] [address] * Oxyhemoglobin, pulmonary artery (05/27/2025 4:34 AM CDT) Oxyhemoglobin, PA 73.9 % Comment: Interpretive Data No reference range established. Current interpretive data was last revised 2020. Blood 05/27/2025 4:34 AM CDT 05/27/2025 5:58 AM CDT us Addy Tapia MD LAB BLOOD ORDERABLES Fin al Result Performing Organization Address [facility] Co de Phone Number [facility] [place] [address] * (ABNORMAL) Hemoglobin total, pulmonary artery (05/27/2025 4:34 AM CDT) Hemoglobin total, PA 8.6(L) 13.0 - 17.5 g/dL Blood 05/27/2025 4:34 AM CDT 05/27/2025 5:58 AM CDT us Zev Cowart MD PhD LAB BLOOD ORDERABLES Fi nal Result Performing Organization Address [facility] de Phone Number [facility] [place] [address] * Potassium, whole blood (05/27/2025 4:34 AM CDT) Potassium, bld 3.8 3.3 - 4.9 mmol/L Blood 05/27/2025 4:34 AM CDT 05/27/2025 5:58 AM CDT us Bar Gamble MD LAB BLOOD ORDERABLES Final R esult Performing Organization Address [facility] Co de Phone Number [facility] [place] [address] * Tacrolimus level trough (05/27/2025 4:34 AM CDT) Pathologist [facility] Tacrolimus trough 5.6 ng/mL Comment: Interpretive Data Testing performed by liquid chromatography-tandem mass spectrometry. Therapeutic concentrations vary depending on type of transplanted organ and time elapsed since transplant. Typical trough concentrations range from 5-15 ng/mL. This test was developed and its performance characteristics determined by the [facility] consistent with CLIA requirements. This test has not been cleared or approved by the US Food and Drug administration. Current interpretive data last reviewed 2020. Blood 05/27/2025 4:34 AM CDT 05/27/2025 6:07 AM CDT Zev Cowart MD PhD LAB BLOOD ORDERABLES Fi nal Result Performing Organization Address [facility] Co de Phone Number [facility] [place] [address] * Lactate, whole blood (05/27/2025 4:34 AM CDT) [facility] Lactate, bld 0.9 0.7 - 2.0 mmol/L Blood 05/27/2025 4:34 AM CDT 05/27/2025 5:58 AM CDT Zev Cowart MD PhD LAB BLOOD ORDERABLES Fi nal Result Performing Organization Address City/[facility] Co de Phone Number [facility] [place] [address] * (ABNORMAL) Blood gas, arterial (05/27/2025 4:34 AM CDT) [facility] pH, Art 7.44 7.35 - 7.45 PCO2, Arterial 42 35 - [address] [facility] PO2, Arterial 82(L) 83 - [address] [facility] HCO3 Art (Calculated) 30 20 - 30 mmol/L [facility] BE, art 4 mmol/L [facility] Comment: Interpretive Data No Reference Range Established Current Interpretive Data was last revised on 2017 O2 Sat Art (Measured) 97(H) 90 - 95 % [facility] Blood 05/27/2025 4:34 AM CDT 05/27/2025 5:58 AM CDT Addy Tapia MD LAB BLOOD ORDERABLES Fin al Result Performing Organization Address City/[facility] Co de Phone Number [facility] [place] [address] * POCT glucose (05/27/2025 3:24 AM CDT) Glucose, POC 169 70 - 199 mg/dL Blood 05/27/2025 3:24 AM CDT 05/27/2025 3:24 AM CDT Addy Tapia MD LAB POCT ORDERABLES - DE VICE Final Result Performing Organization Address [facility] Co de Phone Number [facility] [place] [address] * Antibody identification (05/27/2025 1:49 AM CDT) Antibody ID 1 Anti-CD38 Comment:Panreactive -CD38 on reagent RBCs reacting with anti-CD38 therapy. DTT treatment removes cell surface CD38 and allows detection of common clinically significant antibodies except those against Dilma antigens. TRANSFUSION 2015;55;[id number] Blood 05/27/2025 1:49 AM CDT 05/27/2025 1:49 AM CDT Libia Suarez NP LAB BLOOD BANK TEST ORDERABLE S Final Result Performing Organization Address City/[facility] [place] [address] * POCT glucose (05/26/2025 11:58 PM CDT) Glucose, POC 183 70 - 199 mg/dL Blood 05/26/2025 11:5 8 PM CDT 05/26/2025 11:58 PM CDT Addy Tapia MD LAB POCT ORDERABLES - DE VICE Final Result Performing Organization Address City/[facility] Co de Phone Number [facility] [place] [address] * Potassium, whole blood (05/26/2025 11:53 PM CDT) Potassium, bld 3.5 3.3 - 4.9 mmol/L Blood 05/26/2025 11:5 3 PM CDT 05/27/2025 12:07 AM CDT Addy Tapia MD LAB BLOOD ORDERABLES Fin al Result Performing Organization Address [facility] Co de Phone Number [facility] [place] [address] * (ABNORMAL) eGFR (05/26/2025 11:53 PM CDT) eGFR 26(L) >=60 mL/min/1. 73 m2 Comment: Interpretive Data Reference Interval Normal >/= 90 mL/min/1.73m2 Mildly decreased* 60 - 89 mL/min/1.73m2 Mildly to moderately decreased 45 - 59 mL/min/1.73m2 Moderately to severely decreased 30 - 44 mL/min/1.73m2 Severely decreased 15 - 29 mL/min/1.73m2 Kidney Failure < 15 mL/min/1.73m2 *Relative to young adult level Estimated glomerular filtration rate is determined by the 2020 CKD-EPI equation recommended by the National Kidney Foundation (A Unifying Approach to GFR Estimation: Recommendations of the NKF-ASK Task Force on Reassessing the Inclusion of Race in Diagnosing Kidney Disease, JASN 2020). The CKD-EPI equation should not be used for patients with unstable renal function and has not been validated in children and those over 70. Current interpretive data was last reviewed 2021. Blood 05/26/2025 11:5 3 PM CDT 05/27/2025 12:35 AM CDT Adyd Tapia MD LAB BLOOD ORDERABLES Fin al Result Performing Organization Address [facility] de Phone Number [facility] [place] [address] * (ABNORMAL) CBC without differential (05/26/2025 11:53 PM CDT) WBC 11.13(H) 3.80 - 9.90 K/cumm Hgb 8.3(L) 13.0 - 17.5 g/dL [facility] Hct 25.8(L) 38.9 - 50.3 % [facility] Plt 137(L) 150 - 400 K/cumm [facility] MPV 11.3 9.1 - 12.[address] [facility] RBC 3.12(L) 4.30 - 5.80 M/cumm [facility] MCV 82.7 81.3 - 96.[address] [facility] MCH 26.6(L) 27.1 - 33.[address] [facility] MCHC 32.2(L) 32.3 - 35.7 g/dL [facility] [facility] RDW CV 15.1(H) 11.1 - 14.9 % [facility] RDW SD 45.7 35.7 - 48.[address] [facility] NRBC abs 0.00 0.00 - 0.01 K/cumm [facility] Blood 05/26/2025 11:5 3 PM CDT 05/27/2025 12:23 AM CDT Addy Tapia MD LAB BLOOD ORDERABLES Fin al Result Performing Organization Address [facility] Co de Phone Number [facility] [place] [address] * (ABNORMAL) Type and screen (05/26/2025 11:53 PM CDT) ABO Rh O Positive Poppy, indirect Positive(A) [facility] Blood 05/26/2025 11:5 3 PM CDT 05/27/2025 12:25 AM CDT [facility]ative [facility] 05/27/2025 1:49 AM CDT Has the patient had Daratumumab or Isatuximab in the past 6 months?->Unknown Libia Suarez NP LAB BLOOD BANK TEST ORDERABLE S Final Result Performing Organization Address City/[facility]/[place] [address] * Phosphorus (05/26/2025 11:53 PM CDT) Pathologist [facility] Phosphorus, pl 4.3 2.3 - 4.5 mg/dL Blood 05/26/2025 11:5 3 PM CDT 05/27/2025 12:27 AM CDT Addy Tapia MD LAB BLOOD ORDERABLES Fin al Result Performing Organization Address City/[facility]/ZIP Co de Phone Number [facility] [place] [address] * Magnesium (05/26/2025 11:53 PM CDT) Pathologist [facility] Magnesium 2.4 1.4 - 2.5 mg/dL Blood 05/26/2025 11:5 3 PM CDT 05/27/2025 12:27 AM CDT Addy Tapia MD LAB BLOOD ORDERABLES Fin al Result Performing Organization Address City/[facility]/ZIP Co de Phone Number [facility] [place] [address] * (ABNORMAL) Hepatic function panel (05/26/2025 11:53 PM CDT) Pathologist [facility] Bilirubin, total 0.8 0.1 - 1.2 mg/dL Bilirubin, direct 0.4(H) 0.1 - 0.3 mg/dL [facility] Protein, pl 6.1(L) 6.5 - 8.5 g/dL [facility] Albumin 4.0 3.5 - 5.0 g/dL [facility] Alk phos 141(H) 40 - 130 Units/L [facility] ALT 25 7 - 55 Units/L [facility] AST 25 10 - 50 Units/L [facility] Blood 05/26/2025 11:5 3 PM CDT 05/27/2025 12:27 AM CDT us Bar Gamble MD LAB BLOOD ORDERABLES Final R esult [facility] [place] [address] * (ABNORMAL) Basic metabolic panel (05/26/2025 11:53 PM CDT) [facility] Sodium 151(H) 135 - 145 mmol/L Potassium, pl 3.8 3.3 - 4.9 mmol/L [facility] Chloride 109 97 - 110 mmol/L [facility] CO2 27 22 - 32 mmol/L [facility] Anion gap 15 2 - 15 mmol/L [facility] BUN 81(H) 6 - 25 mg/dL [facility] Creatinine 2.69(H) 0.80 - 1.30 mg/dL [facility] Glucose 176 70 - 199 mg/dL [facility] Comment: Interpretive Data Fasting glucose >/= 126 mg/dl is diagnostic for diabetes. Fasting is defined as no caloric intake for at least 8 hours. Fasting glucose between 100 mg/dl to 125 mg/dl is diagnostic of prediabetes. In a patient with classic symptoms of hyperglycemia or hyperglycemic crisis, a random glucose >/= 200 mg/dl is diagnostic for diabetes. In the absence of unequivocal hyperglycemia, results should be confirmed by repeat testing. The classification and Diagnosis of Diabetes Diabetes Care 2021; 46: S19-S40. Current interpretive data was last revised 2022. Calcium 9.3 8.5 - 10.3 mg/dL [facility] Blood 05/26/2025 11:5 3 PM CDT 05/27/2025 12:27 AM CDT Addy Tapia MD LAB BLOOD ORDERABLES Fin al Result [facility] [place] [address] * POCT glucose (05/26/2025 7:51 PM CDT) [facility] Signature Glucose, POC 142 70 - 199 mg/dL Blood 05/26/2025 7:51 PM CDT 05/26/2025 7:51 PM CDT Addy Tapia MD LAB POCT ORDERABLES - DE VICE Final Result Performing Organization Address [facility] Co de Phone Number [facility] [place] [address] * XR Chest 1 View (05/26/2025 6:43 PM CDT) Anatomical Region Laterality Modality Body, Chest N/A Digital Radiogra phy 05/27/2025 9:0 7 AM CDT Impressions 05/27/2025 9:07 AM CDT Sternal fixation plates again seen. Right internal jugular [place] catheter tip over main pulmonary artery. Right internal jugular central venous catheter tip at superior cavoatrial junction. Gastric tube goes below the field of view. Mediastinal drains are unchanged. Stable cardiomediastinal silhouette. Small bilateral pleural effusions slightly decreased or shifted on the right and unchanged on the left. Mild to moderate atelectasis improved in both lung bases. No pulmonary edema, new consolidation, or pneumothorax. Electronically signed by: Zev Jaimes M.D. Narrative 05/27/2025 9:07 AM CDT EXAMINATION: 1 view chest radiograph COMPARISON: 05/25/2025 Procedure Note Zev Jaimes MD - 05/27/2025 EXAMINATION: 1 view chest radiograph COMPARISON: 05/25/2025 IMPRESSION: Sternal fixation plates again seen. Right internal jugular [place] catheter tip over main pulmonary artery. Right internal jugular central venous catheter tip at superior cavoatrial junction. Gastric tube goes below the field of view. Mediastinal drains are unchanged. Stable cardiomediastinal silhouette. Small bilateral pleural effusions slightly decreased or shifted on the right and unchanged on the left. Mild to moderate atelectasis improved in both lung bases. No pulmonary edema, new consolidation, or pneumothorax. Electronically signed by: Zev Jaimes M.D. Addy Tapia MD IMG XR PROCEDURES Final Result * Potassium, whole blood (05/26/2025 3:52 PM CDT) Pathologist [facility] Potassium, bld 3.9 3.3 - 4.9 mmol/L Blood 05/26/2025 3:52 PM CDT 05/26/2025 4:04 PM CDT Bar Gamble MD LAB BLOOD ORDERABLES Final R esult [facility] [place] [address] * (ABNORMAL) eGFR (05/26/2025 3:52 PM CDT) eGFR 24(L) >=60 mL/min/1. 73 m2 Comment: Interpretive Data Reference Interval Normal >/= 90 mL/min/1.73m2 Mildly decreased* 60 - 89 mL/min/1.73m2 Mildly to moderately decreased 45 - 59 mL/min/1.73m2 Moderately to severely decreased 30 - 44 mL/min/1.73m2 Severely decreased 15 - 29 mL/min/1.73m2 Kidney Failure < 15 mL/min/1.73m2 *Relative to young adult level Estimated glomerular filtration rate is determined by the 2020 CKD-EPI equation recommended by the National Kidney Foundation (A Unifying Approach to GFR Estimation: Recommendations of the NKF-ASK Task Force on Reassessing the Inclusion of Race in Diagnosing Kidney Disease, JASN 2020). The CKD-EPI equation should not be used for patients with unstable renal function and has not been validated in children and those over 70. Current interpretive data was last reviewed 2021. Blood 05/26/2025 3:52 PM CDT 05/26/2025 4:10 PM CDT us Addy Tapia MD LAB BLOOD ORDERABLES Fin al Result [facility] [place] [address] * (ABNORMAL) Basic metabolic panel (05/26/2025 3:52 PM CDT) Sodium 150(H) 135 - 145 mmol/L Potassium, pl 4.2 3.3 - 4.9 mmol/L [facility] Chloride 107 97 - 110 mmol/L [facility] CO2 26 22 - 32 mmol/L [facility] Anion gap 17(H) 2 - 15 mmol/L [facility] BUN 87(H) 6 - 25 mg/dL [facility] Creatinine 2.86(H) 0.80 - 1.30 mg/dL [facility] Glucose 168 70 - 199 mg/dL [facility] Comment: Interpretive Data Fasting glucose >/= 126 mg/dl is diagnostic for diabetes. Fasting is defined as no caloric intake for at least 8 hours. Fasting glucose between 100 mg/dl to 125 mg/dl is diagnostic of prediabetes. In a patient with classic symptoms of hyperglycemia or hyperglycemic crisis, a random glucose >/= 200 mg/dl is diagnostic for diabetes. In the absence of unequivocal hyperglycemia, results should be confirmed by repeat testing. The classification and Diagnosis of Diabetes Diabetes Care 2021; 46: S19-S40. Current interpretive data was last revised 2022. Calcium 9.8 8.5 - 10.3 mg/dL [facility] Blood 05/26/2025 3:52 PM CDT 05/26/2025 4:10 PM CDT Addy Tapia MD LAB BLOOD ORDERABLES Fin al Result Performing Organization Address [facility] de Phone Number [facility] [place] [address] * POCT glucose (05/26/2025 3:50 PM CDT) Glucose, POC 171 70 - 199 mg/dL Blood 05/26/2025 3:50 PM CDT 05/26/2025 3:50 PM CDT Addy Tapia MD LAB POCT ORDERABLES - DE VICE Final Result Performing Organization Address [facility] de Phone Number [facility] [place] [address] * Oxyhemoglobin, pulmonary artery (05/26/2025 2:22 PM CDT) Oxyhemoglobin, PA 83.2 % Comment: Interpretive Data No reference range established. Current interpretive data was last revised 2020. Blood 05/26/2025 2:22 PM CDT 05/26/2025 2:27 PM CDT Result [facility] Addy Tapia MD LAB BLOOD ORDERABLES Fin al Result Performing Organization Address [facility] Co de Phone Number [facility] [place] [address] * (ABNORMAL) Hemoglobin total, pulmonary artery (05/26/2025 2:22 PM CDT) Hemoglobin total, PA 8.4(L) 13.0 - 17.5 g/dL Blood 05/26/2025 2:22 PM CDT 05/26/2025 2:27 PM CDT Zev Cowart MD PhD LAB BLOOD ORDERABLES Fi nal Result Performing Organization Address [facility] Co de Phone Number [facility] [place] [address] * (ABNORMAL) Blood gas, arterial (05/26/2025 2:22 PM CDT) pH, Art 7.41 7.35 - 7.45 PCO2, Arterial 35 35 - [address] [facility] PO2, Arterial 137(H) 83 - [address] [facility] HCO3 Art (Calculated) 23 20 - 30 mmol/L [facility] BE, art -2 mmol/L [facility] Comment: Interpretive Data No Reference Range Established Current Interpretive Data was last revised on 2017 O2 Sat Art (Measured) 98(H) 90 - 95 % [facility] Blood 05/26/2025 2:22 PM CDT 05/26/2025 2:27 PM CDT Result [facility] Addy Tapia MD LAB BLOOD ORDERABLES Fin al Result Performing Organization Address [facility] de Phone Number [facility] [place] [address] * Oxyhemoglobin, pulmonary artery (05/26/2025 12:39 PM CDT) Pathologist [facility] Oxyhemoglobin, PA 68.2 % Comment: Interpretive Data No reference range established. Current interpretive data was last revised 2020. Blood 05/26/2025 12:3 9 PM CDT 05/26/2025 12:50 PM CDT Result [facility] Addy Tapia MD LAB BLOOD ORDERABLES Fin al Result Performing Organization Address City/[facility] Co de Phone Number [facility] [place] [address] * (ABNORMAL) Hemoglobin total, pulmonary artery (05/26/2025 12:39 PM CDT) Pathologist [facility] Hemoglobin total, PA 8.6(L) 13.0 - 17.5 g/dL Blood 05/26/2025 12:3 9 PM CDT 05/26/2025 12:50 PM CDT us Zev Cowart MD PhD LAB BLOOD ORDERABLES Fi nal Result Performing Organization Address [facility]/ZIP Co de Phone Number [facility] [place] [address] * Potassium, whole blood (05/26/2025 12:39 PM CDT) Pathologist [facility] Potassium, bld 3.3 3.3 - 4.9 mmol/L Blood 05/26/2025 12:3 9 PM CDT 05/26/2025 12:50 PM CDT us Bar Gamble MD LAB BLOOD ORDERABLES Final R esult Performing Organization Address [facility] Co de Phone Number [facility] [place] [address] * (ABNORMAL) Blood gas, arterial (05/26/2025 12:39 PM CDT) Pathologist [facility] pH, Art 7.40 7.35 - 7.45 PCO2, Arterial 34(L) 35 - [address] [facility] PO2, Arterial 146(H) 83 - [address] [facility] HCO3 Art (Calculated) 22 20 - 30 mmol/L [facility] BE, art -3 mmol/L [facility] Comment: Interpretive Data No Reference Range Established Current Interpretive Data was last revised on 2017 O2 Sat Art (Measured) 99(H) 90 - 95 % [facility] Blood 05/26/2025 12:3 9 PM CDT 05/26/2025 12:50 PM CDT Addy Tapia MD LAB BLOOD ORDERABLES Fin al Result [facility] [place] [address] * POCT glucose (05/26/2025 12:30 PM CDT) Glucose, POC 111 70 - 199 mg/dL Blood 05/26/2025 12:3 0 PM CDT 05/26/2025 12:30 PM CDT Addy Tapia MD LAB POCT ORDERABLES - DE VICE Final Result Performing Organization Address [facility] Co de Phone Number [facility] [place] [address] * (ABNORMAL) eGFR (05/26/2025 9:03 AM CDT) eGFR 25(L) >=60 mL/min/1. 73 m2 Comment: Interpretive Data Reference Interval Normal >/= 90 mL/min/1.73m2 Mildly decreased* 60 - 89 mL/min/1.73m2 Mildly to moderately decreased 45 - 59 mL/min/1.73m2 Moderately to severely decreased 30 - 44 mL/min/1.73m2 Severely decreased 15 - 29 mL/min/1.73m2 Kidney Failure < 15 mL/min/1.73m2 *Relative to young adult level Estimated glomerular filtration rate is determined by the 2020 CKD-EPI equation recommended by the National Kidney Foundation (A Unifying Approach to GFR Estimation: Recommendations of the NKF-ASK Task Force on Reassessing the Inclusion of Race in Diagnosing Kidney Disease, JASN 202). The CKD-EPI equation should not be used for patients with unstable renal function and has not been validated in children and those over 70. Current interpretive data was last reviewed 2021. Blood 05/26/2025 9:03 AM CDT 05/26/2025 9:24 AM CDT Addy Tapia MD LAB BLOOD ORDERABLES Fin al Result [facility] [place] [address] * POCT glucose (05/26/2025 9:03 AM CDT) Glucose, POC 111 70 - 199 mg/dL Blood 05/26/2025 9:03 AM CDT 05/26/2025 9:03 AM CDT Addy Tapia MD LAB POCT ORDERABLES - DE VICE Final Result Performing Organization Address [facility] Co de Phone Number [facility] [place] [address] * (ABNORMAL) Basic metabolic panel (05/26/2025 9:03 AM CDT) Sodium 147(H) 135 - 145 mmol/L Potassium, pl 3.8 3.3 - 4.9 mmol/L [facility] Chloride 106 97 - 110 mmol/L [facility] CO2 24 22 - 32 mmol/L [facility] Anion gap 17(H) 2 - 15 mmol/L [facility] BUN 89(H) 6 - 25 mg/dL [facility] Creatinine 2.79(H) 0.80 - 1.30 mg/dL [facility] Glucose 121 70 - 199 mg/dL [facility] Comment: Interpretive Data Fasting glucose >/= 126 mg/dl is diagnostic for diabetes. Fasting is defined as no caloric intake for at least 8 hours. Fasting glucose between 100 mg/dl to 125 mg/dl is diagnostic of prediabetes. In a patient with classic symptoms of hyperglycemia or hyperglycemic crisis, a random glucose >/= 200 mg/dl is diagnostic for diabetes. In the absence of unequivocal hyperglycemia, results should be confirmed by repeat testing. The classification and Diagnosis of Diabetes Diabetes Care 2021; 46: S19-S40. Current interpretive data was last revised 2022. Calcium 9.3 8.5 - 10.3 mg/dL [facility] Blood 05/26/2025 9:03 AM CDT 05/26/2025 9:24 AM CDT Addy Tapia MD LAB BLOOD ORDERABLES Fin al Result Performing Organization Address City/[facility] Co de Phone Number [facility] [place] [address] * POCT glucose (05/26/2025 7:38 AM CDT) Glucose, POC 114 70 - 199 mg/dL Blood 05/26/2025 7:38 AM CDT 05/26/2025 7:38 AM CDT Addy Tapia MD LAB POCT ORDERABLES - DE VICE Final Result Performing Organization Address City/[facility] Co de Phone Number [facility] [place] [address] * POCT glucose (05/26/2025 7:06 AM CDT) Glucose, POC 114 70 - 199 mg/dL Blood 05/26/2025 7:06 AM CDT 05/26/2025 7:06 AM CDT Addy Tapia MD LAB POCT ORDERABLES - DE VICE Final Result Performing Organization Address City/[facility] Co de Phone Number [facility] [place] [address] * POCT glucose (05/26/2025 6:06 AM CDT) Glucose, POC 113 70 - 199 mg/dL Blood 05/26/2025 6:06 AM CDT 05/26/2025 6:06 AM CDT Addy Tapia MD LAB POCT ORDERABLES - DE VICE Final Result Performing Organization Address [facility] Phone Number [facility] [place] [address] * POCT glucose (05/26/2025 5:06 AM CDT) Glucose, POC 111 70 - 199 mg/dL Blood 05/26/2025 5:06 AM CDT 05/26/2025 5:06 AM CDT Addy Tapia MD LAB POCT ORDERABLES - DE VICE Final Result Performing Organization Address [facility] Phone Number [facility] [place] [address] * Tacrolimus level trough (05/26/2025 5:04 AM CDT) Pathologist [facility] Tacrolimus trough 7.6 ng/mL Comment: Interpretive Data Testing performed by liquid chromatography-tandem mass spectrometry. Therapeutic concentrations vary depending on type of transplanted organ and time elapsed since transplant. Typical trough concentrations range from 5-15 ng/mL. This test was developed and its performance characteristics determined by the [facility] consistent with CLIA requirements. This test has not been cleared or approved by the [place] Food and Drug administration. Current interpretive data last reviewed 2020. Blood 05/26/2025 5:04 AM CDT 05/26/2025 5:20 AM CDT Zev Cowart MD PhD LAB BLOOD ORDERABLES Fi nal Result Performing Organization Address [facility] Co de Phone Number [facility] [place] [address] * Potassium, whole blood (05/26/2025 4:04 AM CDT) Potassium, bld 4.1 3.3 - 4.9 mmol/L Blood 05/26/2025 4:04 AM CDT 05/26/2025 4:11 AM CDT Bar Gamble MD LAB BLOOD ORDERABLES Final R esult Performing Organization Address [facility] de Phone Number [facility] [place] [address] * POCT glucose (05/26/2025 4:02 AM CDT) Glucose, POC 105 70 - 199 mg/dL Blood 05/26/2025 4:02 AM CDT 05/26/2025 4:02 AM CDT Addy Tapia MD LAB POCT ORDERABLES - DE VICE Final Result Performing Organization Address [facility] Phone Number [facility] [place] [address] * POCT glucose (05/26/2025 3:11 AM CDT) Glucose, POC 94 70 - 199 mg/dL Blood 05/26/2025 3:11 AM CDT 05/26/2025 3:11 AM CDT Addy Tapia MD LAB POCT ORDERABLES - DE VICE Final Result Performing Organization Address [facility] Phone Number [facility] [place] [address] * POCT glucose (05/26/2025 2:10 AM CDT) Glucose, POC 110 70 - 199 mg/dL Blood 05/26/2025 2:10 AM CDT 05/26/2025 2:10 AM CDT Addy Tapia MD LAB POCT ORDERABLES - DE VICE Final Result Performing Organization Address [facility] de Phone Number [facility] [place] [address] * POCT glucose (05/26/2025 1:05 AM CDT) Glucose, POC 101 70 - 199 mg/dL Blood 05/26/2025 1:05 AM CDT 05/26/2025 1:05 AM CDT Addy Tapia MD LAB POCT ORDERABLES - DE VICE Final Result Performing Organization Address [facility] Phone Number [facility] [place] [address] * Oxyhemoglobin, central venous (05/26/2025 12:04 AM CDT) Oxyhemoglobin, CV 78.7 % Comment: Interpretive Data No reference range established. Current interpretive data was last revised 2020. Blood 05/26/2025 12:0 4 AM CDT 05/26/2025 12:17 AM CDT Result [facility] Addy Tapia MD LAB BLOOD ORDERABLES Fin al Result Performing Organization Address [facility] Phone Number [facility] [place] [address] * Oxyhemoglobin, pulmonary artery (05/26/2025 12:04 AM CDT) Oxyhemoglobin, PA 79.9 % Comment: Interpretive Data No reference range established. Current interpretive data was last revised 2020. Blood 05/26/2025 12:0 4 AM CDT 05/26/2025 12:17 AM CDT Addy Tapia MD LAB BLOOD ORDERABLES Fin al Result Performing Organization Address City/[facility]/ZIP Co de Phone Number [facility] [place] [address] * Potassium, whole blood (05/26/2025 12:04 AM CDT) Potassium, bld 3.6 3.3 - 4.9 mmol/L Blood 05/26/2025 12:0 4 AM CDT 05/26/2025 12:17 AM CDT Addy Tapia MD LAB BLOOD ORDERABLES Fin al Result Performing Organization Address [facility] Co de Phone Number [facility] [place] [address] * (ABNORMAL) eGFR (05/26/2025 12:04 AM CDT) eGFR 24(L) >=60 mL/min/1. 73 m2 Comment: Interpretive Data Reference Interval Normal >/= 90 mL/min/1.73m2 Mildly decreased* 60 - 89 mL/min/1.73m2 Mildly to moderately decreased 45 - 59 mL/min/1.73m2 Moderately to severely decreased 30 - 44 mL/min/1.73m2 Severely decreased 15 - 29 mL/min/1.73m2 Kidney Failure < 15 mL/min/1.73m2 *Relative to young adult level Estimated glomerular filtration rate is determined by the 2020 CKD-EPI equation recommended by the National Kidney Foundation (A Unifying Approach to GFR Estimation: Recommendations of the NKF-ASK Task Force on Reassessing the Inclusion of Race in Diagnosing Kidney Disease, JASN 2020). The CKD-EPI equation should not be used for patients with unstable renal function and has not been validated in children and those over 70. Current interpretive data was last reviewed 2021. Blood 05/26/2025 12:0 4 AM CDT 05/26/2025 12:25 AM CDT Addy Tapia MD LAB BLOOD ORDERABLES Fin al Result [facility] [place] [address] * (ABNORMAL) Lactate, whole blood (05/26/2025 12:04 AM CDT) [facility] Lactate, bld 0.6(L) 0.7 - 2.0 mmol/L Blood 05/26/2025 12:0 4 AM CDT 05/26/2025 12:17 AM CDT Zev Cowart MD PhD LAB BLOOD ORDERABLES Fi nal Result Performing Organization Address [facility] Co de Phone Number [facility] [place] [address] * (ABNORMAL) CBC without differential (05/26/2025 12:04 AM CDT) [facility] [facility] WBC 12.99(H) 3.80 - 9.90 K/cumm Hgb 8.7(L) 13.0 - 17.5 g/dL [facility] Hct 25.8(L) 38.9 - 50.3 % [facility] Plt 148(L) 150 - 400 K/cumm [facility] MPV 10.7 9.1 - 12.[address] [facility] RBC 3.18(L) 4.30 - 5.80 M/cumm [facility] MCV 81.1(L) 81.3 - 96.[address] [facility] MCH 27.4 27.1 - 33.[address] [facility] MCHC 33.7 32.3 - 35.7 g/dL [facility] RDW CV 15.2(H) 11.1 - 14.9 % [facility] RDW SD 45.3 35.7 - 48.[address] [facility] NRBC abs 0.00 0.00 - 0.01 K/cumm [facility] Blood 05/26/2025 12:0 4 AM CDT 05/26/2025 12:24 AM CDT Addy Tapia MD LAB BLOOD ORDERABLES Fin al Result Performing Organization Address [facility] [place] [address] * (ABNORMAL) Phosphorus (05/26/2025 12:04 AM CDT) Phosphorus, pl 5.9(H) 2.3 - 4.5 mg/dL Blood 05/26/2025 12:0 4 AM CDT 05/26/2025 12:22 AM CDT Addy Tapia MD LAB BLOOD ORDERABLES Fin al Result Performing Organization Address [facility] [place] [address] * (ABNORMAL) Magnesium (05/26/2025 12:04 AM CDT) Magnesium 2.7(H) 1.4 - 2.5 mg/dL Blood 05/26/2025 12:0 4 AM CDT 05/26/2025 12:22 AM CDT Addy Tapia MD LAB BLOOD ORDERABLES Fin al Result Performing Organization Address [facility] [place] [address] * (ABNORMAL) Blood gas, arterial (05/26/2025 12:04 AM CDT) pH, Art 7.42 7.35 - 7.45 PCO2, Arterial 38 35 - [address] [facility] PO2, Arterial 100 83 - [address] [facility] HCO3 Art (Calculated) 25 20 - 30 mmol/L [facility] BE, art 0 mmol/L [facility] Comment: Interpretive Data No Reference Range Established Current Interpretive Data was last revised on 2017 O2 Sat Art (Measured) 98(H) 90 - 95 % [facility] Blood 05/26/2025 12:0 4 AM CDT 05/26/2025 12:17 AM CDT Addy Tapia MD LAB BLOOD ORDERABLES Fin al Result Performing Organization Address [facility] de Phone Number [facility] [place] [address] * (ABNORMAL) Hepatic function panel (05/26/2025 12:04 AM CDT) Bilirubin, total 0.8 0.1 - 1.2 mg/dL Bilirubin, direct 0.5(H) 0.1 - 0.3 mg/dL [facility] Protein, pl 6.0(L) 6.5 - 8.5 g/dL [facility] Albumin 4.0 3.5 - 5.0 g/dL [facility] Alk phos 151(H) 40 - 130 Units/L [facility] ALT 32 7 - 55 Units/L [facility] AST 30 10 - 50 Units/L [facility] Blood 05/26/2025 12:0 4 AM CDT 05/26/2025 12:22 AM CDT us Bar Gamble MD LAB BLOOD ORDERABLES Final R esult Performing Organization Address [facility] Co de Phone Number [facility] [place] [address] * (ABNORMAL) Basic metabolic panel (05/26/2025 12:04 AM CDT) Sodium 145 135 - 145 mmol/L Potassium, pl 3.5 3.3 - 4.9 mmol/L [facility] Chloride 106 97 - 110 mmol/L [facility] CO2 26 22 - 32 mmol/L [facility] Anion gap 13 2 - 15 mmol/L [facility] BUN 90(H) 6 - 25 mg/dL [facility] Creatinine 2.92(H) 0.80 - 1.30 mg/dL [facility] Glucose 106 70 - 199 mg/dL [facility] Comment: Interpretive Data Fasting glucose >/= 126 mg/dl is diagnostic for diabetes. Fasting is defined as no caloric intake for at least 8 hours. Fasting glucose between 100 mg/dl to 125 mg/dl is diagnostic of prediabetes. In a patient with classic symptoms of hyperglycemia or hyperglycemic crisis, a random glucose >/= 200 mg/dl is diagnostic for diabetes. In the absence of unequivocal hyperglycemia, results should be confirmed by repeat testing. The classification and Diagnosis of Diabetes Diabetes Care 2021; 46: S19-S40. Current interpretive data was last revised 2022. Calcium 9.5 8.5 - 10.3 mg/dL [facility] Blood 05/26/2025 12:0 4 AM CDT 05/26/2025 12:22 AM CDT Addy Tapia MD LAB BLOOD ORDERABLES Fin al Result [facility] [place] [address] * POCT glucose (05/25/2025 11:59 PM CDT) Glucose, POC 105 70 - 199 mg/dL Blood 05/25/2025 11:5 9 PM CDT 05/25/2025 11:59 PM CDT Addy Tapia MD LAB POCT ORDERABLES - DE VICE Final Result Performing Organization Address [facility]/ZIP Co de Phone Number [facility] [place] [address] * XR Abdomen Ap 1 Vw (05/25/2025 10:51 PM CDT) Anatomical Region Laterality Modality Body, Abdomen N/A Digital Radiogra phy 05/26/2025 6:03 AM CDT Impressions 05/26/2025 6:03 AM CDT Gastric tube tip and side port remain in the stomach. Temperature probe and bladder. No change in bowel gas pattern. Mildly dilated large bowel loops remain which may represent a colonic ileus. Electronically signed by: Bar Summers M.D. Narrative 05/26/2025 6:03 AM CDT EXAMINATION: Abdomen, one view. HISTORY: Abdominal pain. COMPARISON: 09/24/2025 Procedure Note Bar Summers MD - 05/26/2025 EXAMINATION: Abdomen, one view. HISTORY: Abdominal pain. COMPARISON: 09/24/2025 IMPRESSION: Gastric tube tip and side port remain in the stomach. Temperature probe and bladder. No change in bowel gas pattern. Mildly dilated large bowel loops remain which may represent a colonic ileus. Electronically signed by: Bar Summers M.D. Addy Tapia MD IMG XR PROCEDURES Final Result * POCT glucose (05/25/2025 10:16 PM CDT) Glucose, POC 110 70 - 199 mg/dL Blood 05/25/2025 10:1 6 PM CDT 05/25/2025 10:16 PM CDT Addy Tapia MD LAB POCT ORDERABLES - DE VICE Final Result Performing Organization Address City/State/[facility] Co de Phone Number [facility] [place] [address] * POCT glucose (05/25/2025 8:46 PM CDT) Glucose, POC 119 70 - 199 mg/dL Blood 05/25/2025 8:46 PM CDT 05/25/2025 8:46 PM CDT Addy Tapia MD LAB POCT ORDERABLES - DE VICE Final Result [facility] [place] [address] * XR Chest 1 View (05/25/2025 8:10 PM CDT) Anatomical Region Laterality Modality Body, Chest N/A Digital Radiogra phy 05/26/2025 8:34 AM CDT Impressions 05/26/2025 8:34 AM CDT Comparison is made to chest radiograph of 05/24/2025 at 7:50 PM Anteroposterior chest radiograph demonstrates slight decreased size of right pleural effusion now small. There is a much smaller left pleural effusion which is also decreased in size. No pulmonary edema or pneumothorax. Patchy atelectasis in bilateral mid and lower lungs have decreased. The cardiac silhouette is mildly enlarged with stable. Sternal plates and screws appear unchanged. The gastric tube is visible to below the diaphragm. The tip of the right internal jugular approach [place] catheter projects over the main pulmonary artery. The tip of the right internal jugular central venous catheter projects over the superior cavoatrial junction. Mediastinal/pericardial drains are unchanged. Electronically signed by: Jennifer Nj M.D. Narrative 05/26/2025 8:34 AM CDT EXAMINATION: 1 view chest radiograph Procedure Note Jennifer Nj MD - 05/26/2025 EXAMINATION: 1 view chest radiograph IMPRESSION: Comparison is made to chest radiograph of 05/24/2025 at 7:50 PM Anteroposterior chest radiograph demonstrates slight decreased size of right pleural effusion now small. There is a much smaller left pleural effusion which is also decreased in size. No pulmonary edema or pneumothorax. Patchy atelectasis in bilateral mid and lower lungs have decreased. The cardiac silhouette is mildly enlarged with stable. Sternal plates and screws appear unchanged. The gastric tube is visible to below the diaphragm. The tip of the right internal jugular approach [place] catheter projects over the main pulmonary artery. The tip of the right internal jugular central venous catheter projects over the superior cavoatrial junction. Mediastinal/pericardial drains are unchanged. Electronically signed by: Jennifer Nj M.D. Addy Tapia MD IMG XR PROCEDURES Final Result * POCT glucose (05/25/2025 8:09 PM CDT) Glucose, POC 128 70 - 199 mg/dL Blood 05/25/2025 8:09 PM CDT 05/25/2025 8:09 PM CDT Addy Tapia MD LAB POCT ORDERABLES - DE VICE Final Result Performing Organization Address [facility] Co de Phone Number [facility] [place] [address] * Potassium, whole blood (05/25/2025 8:08 PM CDT) Potassium, bld 3.8 3.3 - 4.9 mmol/L Blood 05/25/2025 8:08 PM CDT 05/25/2025 8:22 PM CDT Bar Gamble MD LAB BLOOD ORDERABLES Final R esult Performing Organization Address [facility] Co de Phone Number [facility] [place] [address] * POCT glucose (05/25/2025 7:01 PM CDT) Glucose, POC 114 70 - 199 mg/dL Blood 05/25/2025 7:01 PM CDT 05/25/2025 7:01 PM CDT Addy Tapia MD LAB POCT ORDERABLES - DE VICE Final Result Performing Organization Address City/[facility]/ZIP Co de Phone Number [facility] [place] [address] * POCT glucose (05/25/2025 6:20 PM CDT) Glucose, POC 123 70 - 199 mg/dL Blood 05/25/2025 6:20 PM CDT 05/25/2025 6:20 PM CDT Addy Tapia MD LAB POCT ORDERABLES - DE VICE Final Result Performing Organization Address [facility] Co az Phone Number [facility] [place] [address] * POCT glucose (05/25/2025 5:18 PM CDT) Glucose, POC 100 70 - 199 mg/dL Blood 05/25/2025 5:18 PM CDT 05/25/2025 5:18 PM CDT Addy Tapia MD LAB POCT ORDERABLES - DE VICE Final Result Performing Organization Address [facility] Phone Number [facility] [place] [address] * (ABNORMAL) Hemoglobin total, pulmonary artery (05/25/2025 4:37 PM CDT) Hemoglobin total, PA 9.3(L) 13.0 - 17.5 g/dL Blood 05/25/2025 4:37 PM CDT 05/25/2025 4:48 PM CDT Bar Gamble MD LAB BLOOD ORDERABLES Final R esult Performing Organization Address [facility] Co de Phone Number [facility] [place] [address] * Potassium, whole blood (05/25/2025 4:37 PM CDT) Potassium, bld 3.8 3.3 - 4.9 mmol/L Blood 05/25/2025 4:37 PM CDT 05/25/2025 4:48 PM CDT Addy Tapia MD LAB BLOOD ORDERABLES Fin al Result Performing Organization Address City/[facility] Co de Phone Number [facility] [place] [address] * (ABNORMAL) eGFR (05/25/2025 4:37 PM CDT) eGFR 26(L) >=60 mL/min/1. 73 m2 Comment: Interpretive Data Reference Interval Normal >/= 90 mL/min/1.73m2 Mildly decreased* 60 - 89 mL/min/1.73m2 Mildly to moderately decreased 45 - 59 mL/min/1.73m2 Moderately to severely decreased 30 - 44 mL/min/1.73m2 Severely decreased 15 - 29 mL/min/1.73m2 Kidney Failure < 15 mL/min/1.73m2 *Relative to young adult level Estimated glomerular filtration rate is determined by the 2020 CKD-EPI equation recommended by the National Kidney Foundation (A Unifying Approach to GFR Estimation: Recommendations of the NKF-ASK Task Force on Reassessing the Inclusion of Race in Diagnosing Kidney Disease, JASN 2020). The CKD-EPI equation should not be used for patients with unstable renal function and has not been validated in children and those over 70. Current interpretive data was last reviewed 2021. Blood 05/25/2025 4:37 PM CDT 05/25/2025 4:50 PM CDT Addy Tapia MD LAB BLOOD ORDERABLES Fin al Result [facility] [place] [address] * (ABNORMAL) Basic metabolic panel (05/25/2025 4:37 PM CDT) Sodium 142 135 - 145 mmol/L Potassium, pl 3.7 3.3 - 4.9 mmol/L [facility] Chloride 103 97 - 110 mmol/L [facility] CO2 25 22 - 32 mmol/L [facility] Anion gap 14 2 - 15 mmol/L [facility] BUN 90(H) 6 - 25 mg/dL [facility] Creatinine 2.73(H) 0.80 - 1.30 mg/dL [facility] Glucose 122 70 - 199 mg/dL [facility] Comment: Interpretive Data Fasting glucose >/= 126 mg/dl is diagnostic for diabetes. Fasting is defined as no caloric intake for at least 8 hours. Fasting glucose between 100 mg/dl to 125 mg/dl is diagnostic of prediabetes. In a patient with classic symptoms of hyperglycemia or hyperglycemic crisis, a random glucose >/= 200 mg/dl is diagnostic for diabetes. In the absence of unequivocal hyperglycemia, results should be confirmed by repeat testing. The classification and Diagnosis of Diabetes Diabetes Care 2021; 46: S19-S40. Current interpretive data was last revised 2022. Calcium 8.9 8.5 - 10.3 mg/dL [facility] Blood 05/25/2025 4:37 PM CDT 05/25/2025 4:50 PM CDT Addy Tapia MD LAB BLOOD ORDERABLES Fin al Result [facility] [place] [address] * POCT glucose (05/25/2025 4:15 PM CDT) [facility] Glucose, POC 115 70 - 199 mg/dL Blood 05/25/2025 4:15 PM CDT 05/25/2025 4:15 PM CDT Addy Tapia MD LAB POCT ORDERABLES - DE VICE Final Result Performing Organization Address [facility]/ZIP Co de Phone Number [facility] [place] [address] * POCT glucose (05/25/2025 3:18 PM CDT) Glucose, POC 130 70 - 199 mg/dL Blood 05/25/2025 3:18 PM CDT 05/25/2025 3:18 PM CDT Addy Tapia MD LAB POCT ORDERABLES - DE VICE Final Result Performing Organization Address [facility] Co az Phone Number [facility] [place] [address] * POCT glucose (05/25/2025 2:21 PM CDT) Glucose, POC 144 70 - 199 mg/dL Blood 05/25/2025 2:21 PM CDT 05/25/2025 2:21 PM CDT Addy Tapia MD LAB POCT ORDERABLES - DE VICE Final Result Performing Organization Address [facility] Co de Phone Number [facility] [place] [address] * POCT glucose (05/25/2025 1:04 PM CDT) Glucose, POC 165 70 - 199 mg/dL Blood 05/25/2025 1:04 PM CDT 05/25/2025 1:04 PM CDT Addy Tapia MD LAB POCT ORDERABLES - DE VICE Final Result Performing Organization Address [facility] [place] [address] * Oxyhemoglobin, pulmonary artery (05/25/2025 1:02 PM CDT) Oxyhemoglobin, PA 74.5 % Comment: Interpretive Data No reference range established. Current interpretive data was last revised 2020. Blood 05/25/2025 1:02 PM CDT 05/25/2025 1:12 PM CDT Addy Tapia MD LAB BLOOD ORDERABLES Fin al Result Performing Organization Address [facility] Co de Phone Number [facility] [place] [address] * (ABNORMAL) Hemoglobin total, pulmonary artery (05/25/2025 1:02 PM CDT) Hemoglobin total, PA 9.4(L) 13.0 - 17.5 g/dL Blood 05/25/2025 1:02 PM CDT 05/25/2025 1:12 PM CDT Zev Cowart MD PhD LAB BLOOD ORDERABLES Fi nal Result Performing Organization Address [facility] Co de Phone Number [facility] [place] [address] * Potassium, whole blood (05/25/2025 1:02 PM CDT) Potassium, bld 4.0 3.3 - 4.9 mmol/L Blood 05/25/2025 1:02 PM CDT 05/25/2025 1:12 PM CDT us Bar Gamble MD LAB BLOOD ORDERABLES Final R esult Performing Organization Address [facility] Co de Phone Number [facility] [place] [address] * (ABNORMAL) Blood gas, arterial (05/25/2025 1:02 PM CDT) pH, Art 7.39 7.35 - 7.45 PCO2, Arterial 36 35 - [address] [facility] PO2, Arterial 102 83 - [address] [facility] HCO3 Art (Calculated) 23 20 - 30 mmol/L [facility] BE, art -2 mmol/L [facility] Comment: Interpretive Data No Reference Range Established Current Interpretive Data was last revised on 2017 O2 Sat Art (Measured) 99(H) 90 - 95 % [facility] Blood 05/25/2025 1:02 PM CDT 05/25/2025 1:12 PM CDT Addy Tapia MD LAB BLOOD ORDERABLES Fin al Result [facility] [place] [address] * POCT glucose (05/25/2025 11:58 AM CDT) Glucose, POC 144 70 - 199 mg/dL Blood 05/25/2025 11:5 8 AM CDT 05/25/2025 11:58 AM CDT Addy Tapia MD LAB POCT ORDERABLES - DE VICE Final Result Performing Organization Address City/[facility] Co de Phone Number [facility] [place] [address] * POCT glucose (05/25/2025 11:10 AM CDT) Glucose, POC 130 70 - 199 mg/dL Blood 05/25/2025 11:1 0 AM CDT 05/25/2025 11:10 AM CDT Addy Tapia MD LAB POCT ORDERABLES - DE VICE Final Result Performing Organization Address [facility] Co de Phone Number [facility] [place] [address] * POCT glucose (05/25/2025 10:01 AM CDT) Glucose, POC 113 70 - 199 mg/dL Blood 05/25/2025 10:0 1 AM CDT 05/25/2025 10:01 AM CDT us Addy Tapia MD LAB POCT ORDERABLES - DE VICE Final Result Performing Organization Address [facility] Phone Number [facility] [place] [address] * POCT glucose (05/25/2025 9:06 AM CDT) Glucose, POC 100 70 - 199 mg/dL Blood 05/25/2025 9:06 AM CDT 05/25/2025 9:06 AM CDT Addy Tapia MD LAB POCT ORDERABLES - DE VICE Final Result Performing Organization Address [facility] Phone Number [facility] [place] [address] * POCT glucose (05/25/2025 8:01 AM CDT) Glucose, POC 107 70 - 199 mg/dL Blood 05/25/2025 8:01 AM CDT 05/25/2025 8:01 AM CDT Addy Tapia MD LAB POCT ORDERABLES - DE VICE Final Result Performing Organization Address [facility] Phone Number [facility] [place] [address] * Potassium, whole blood (05/25/2025 7:59 AM CDT) Potassium, bld 3.8 3.3 - 4.9 mmol/L Blood 05/25/2025 7:59 AM CDT 05/25/2025 8:14 AM CDT us Bar Gamble MD LAB BLOOD ORDERABLES Final R esult Performing Organization Address [facility] Co de Phone Number [facility] [place] [address] * (ABNORMAL) eGFR (05/25/2025 7:59 AM CDT) eGFR 25(L) >=60 mL/min/1. 73 m2 Comment: Interpretive Data Reference Interval Normal >/= 90 mL/min/1.73m2 Mildly decreased* 60 - 89 mL/min/1.73m2 Mildly to moderately decreased 45 - 59 mL/min/1.73m2 Moderately to severely decreased 30 - 44 mL/min/1.73m2 Severely decreased 15 - 29 mL/min/1.73m2 Kidney Failure < 15 mL/min/1.73m2 *Relative to young adult level Estimated glomerular filtration rate is determined by the 2020 CKD-EPI equation recommended by the National Kidney Foundation (A Unifying Approach to GFR Estimation: Recommendations of the NKF-ASK Task Force on Reassessing the Inclusion of Race in Diagnosing Kidney Disease, JASN 2020). The CKD-EPI equation should not be used for patients with unstable renal function and has not been validated in children and those over 70. Current interpretive data was last reviewed 2021. Blood 05/25/2025 7:59 AM CDT 05/25/2025 8:29 AM CDT us Addy Tapia MD LAB BLOOD ORDERABLES Fin al Result Performing Organization Address [facility]/ZIP Co de Phone Number [facility] [place] [address] * (ABNORMAL) Basic metabolic panel (05/25/2025 7:59 AM CDT) Sodium 140 135 - 145 mmol/L Potassium, pl 4.0 3.3 - 4.9 mmol/L [facility] Chloride 101 97 - 110 mmol/L [facility] CO2 26 22 - 32 mmol/L [facility] Anion gap 13 2 - 15 mmol/L [facility] BUN 87(H) 6 - 25 mg/dL [facility] Creatinine 2.82(H) 0.80 - 1.30 mg/dL [facility] Glucose 100 70 - 199 mg/dL [facility] Comment: Interpretive Data Fasting glucose >/= 126 mg/dl is diagnostic for diabetes. Fasting is defined as no caloric intake for at least 8 hours. Fasting glucose between 100 mg/dl to 125 mg/dl is diagnostic of prediabetes. In a patient with classic symptoms of hyperglycemia or hyperglycemic crisis, a random glucose >/= 200 mg/dl is diagnostic for diabetes. In the absence of unequivocal hyperglycemia, results should be confirmed by repeat testing. The classification and Diagnosis of Diabetes Diabetes Care 2021; 46: S19-S40. Current interpretive data was last revised 2022. Calcium 9.1 8.5 - 10.3 mg/dL [facility] Blood 05/25/2025 7:59 AM CDT 05/25/2025 8:14 AM CDT Addy Tapia MD LAB BLOOD ORDERABLES Fin al Result [facility] [place] [address] * POCT glucose (05/25/2025 6:50 AM CDT) Glucose, POC 109 70 - 199 mg/dL Blood 05/25/2025 6:50 AM CDT 05/25/2025 6:50 AM CDT Addy Tapia MD LAB POCT ORDERABLES - DE VICE Final Result [facility] [place] [address] * POCT glucose (05/25/2025 5:16 AM CDT) Glucose, POC 117 70 - 199 mg/dL Blood 05/25/2025 5:16 AM CDT 05/25/2025 5:16 AM CDT Addy Tapia MD LAB POCT ORDERABLES - DE VICE Final Result Performing Organization Address [facility] Co az Phone Number [facility] [place] [address] * Potassium, whole blood (05/25/2025 5:14 AM CDT) Potassium, bld 4.1 3.3 - 4.9 mmol/L Blood 05/25/2025 5:14 AM CDT 05/25/2025 5:23 AM CDT Bar Gamble MD LAB BLOOD ORDERABLES Final R esult Performing Organization Address [facility] Phone Number [facility] [place] [address] * Tacrolimus level trough (05/25/2025 5:06 AM CDT) Tacrolimus trough 14.6 ng/mL Comment: Interpretive Data Testing performed by liquid chromatography-tandem mass spectrometry. Therapeutic concentrations vary depending on type of transplanted organ and time elapsed since transplant. Typical trough concentrations range from 5-15 ng/mL. This test was developed and its performance characteristics determined by the [facility] consistent with CLIA requirements. This test has not been cleared or approved by the [place] Food and Drug administration. Current interpretive data last reviewed 2020. Blood 05/25/2025 5:06 AM CDT 05/25/2025 5:29 AM CDT Zev Cowart MD PhD LAB BLOOD ORDERABLES Fi nal Result Performing Organization Address [facility] Co de Phone Number [facility] [place] [address] * POCT glucose (05/25/2025 3:46 AM CDT) Glucose, POC 114 70 - 199 mg/dL Blood 05/25/2025 3:46 AM CDT 05/25/2025 3:46 AM CDT Addy Tapia MD LAB POCT ORDERABLES - DE VICE Final Result Performing Organization Address [facility] Co de Phone Number [facility] [place] [address] * POCT glucose (05/25/2025 1:55 AM CDT) Glucose, POC 133 70 - 199 mg/dL Blood 05/25/2025 1:55 AM CDT 05/25/2025 1:55 AM CDT Addy Tapia MD LAB POCT ORDERABLES - DE VICE Final Result Performing Organization Address [facility] Co de Phone Number [facility] [place] [address] * POCT glucose (05/25/2025 1:04 AM CDT) Glucose, POC 135 70 - 199 mg/dL Blood 05/25/2025 1:04 AM CDT 05/25/2025 1:04 AM CDT Addy Tapia MD LAB POCT ORDERABLES - DE VICE Final Result Performing Organization Address City/[facility] Co de Phone Number [facility] [place] [address] * POCT glucose (05/25/2025 12:22 AM CDT) Glucose, POC 143 70 - 199 mg/dL Blood 05/25/2025 12:2 2 AM CDT 05/25/2025 12:22 AM CDT Addy Tapia MD LAB POCT ORDERABLES - DE VICE Final Result Performing Organization Address [facility] de Phone Number [facility] [place] [address] * Oxyhemoglobin, central venous (05/25/2025 12:06 AM CDT) Oxyhemoglobin, CV 86.7 % Comment: Interpretive Data No reference range established. Current interpretive data was last revised 2020. Blood 05/25/2025 12:0 6 AM CDT 05/25/2025 12:29 AM CDT Addy Tapia MD LAB BLOOD ORDERABLES Fin al Result Performing Organization Address [facility] de Phone Number [facility] [place] [address] * Oxyhemoglobin, pulmonary artery (05/25/2025 12:06 AM CDT) Oxyhemoglobin, PA 73.9 % Comment: Interpretive Data No reference range established. Current interpretive data was last revised 2020. Blood 05/25/2025 12:0 6 AM CDT 05/25/2025 12:27 AM CDT Addy Tapia MD LAB BLOOD ORDERABLES Fin al Result Performing Organization Address [facility] [place] [address] * (ABNORMAL) Hemoglobin total, pulmonary artery (05/25/2025 12:06 AM CDT) Hemoglobin total, PA 8.8(L) 13.0 - 17.5 g/dL Blood 05/25/2025 12:0 6 AM CDT 05/25/2025 12:27 AM CDT Addy Tapia MD LAB BLOOD ORDERABLES Fin al Result Performing Organization Address City/State/[facility] Co de Phone Number [facility] [place] [address] * Potassium, whole blood (05/25/2025 12:06 AM CDT) Potassium, bld 4.2 3.3 - 4.9 mmol/L Blood 05/25/2025 12:0 6 AM CDT 05/25/2025 12:27 AM CDT Addy Tapia MD LAB BLOOD ORDERABLES Fin al Result Performing Organization Address [facility] de Phone Number [facility] [place] [address] * (ABNORMAL) eGFR (05/25/2025 12:06 AM CDT) eGFR 25(L) >=60 mL/min/1. 73 m2 Comment: Interpretive Data Reference Interval Normal >/= 90 mL/min/1.73m2 Mildly decreased* 60 - 89 mL/min/1.73m2 Mildly to moderately decreased 45 - 59 mL/min/1.73m2 Moderately to severely decreased 30 - 44 mL/min/1.73m2 Severely decreased 15 - 29 mL/min/1.73m2 Kidney Failure < 15 mL/min/1.73m2 *Relative to young adult level Estimated glomerular filtration rate is determined by the 2020 CKD-EPI equation recommended by the National Kid[employer] (A Unifying Approach to GFR Estimation: Recommendations of the NKF-ASK Task Force on Reassessing the Inclusion of Race in Diagnosing Kidney Disease, JASN 2020). The CKD-EPI equation should not be used for patients with unstable renal function and has not been validated in children and those over 70. Current interpretive data was last reviewed 2021. Blood 05/25/2025 12:0 6 AM CDT 05/25/2025 1:01 AM CDT Addy Tapia MD LAB BLOOD ORDERABLES Fin al Result Performing Organization Address [facility] Co de Phone Number [facility] [place] [address] * Lactate, whole blood (05/25/2025 12:06 AM CDT) Lactate, bld 0.9 0.7 - 2.0 mmol/L Blood 05/25/2025 12:0 6 AM CDT 05/25/2025 12:27 AM CDT Zev Cowart MD PhD LAB BLOOD ORDERABLES Fi nal Result Performing Organization Address [facility] de Phone Number [facility] [place] [address] * aPTT (05/25/2025 12:06 AM CDT) aPTT 34 28 - 38 sec Comment: Interpretive Data Heparin therapeutic range: 66.0 - 100.0 seconds. Range based on correlation with therapeutic heparin activity range of 0.3 - 0.7 Units/mL. Current interpretive data was last revised on 2023. Blood 05/25/2025 12:0 6 AM CDT 05/25/2025 12:39 AM CDT Narrative [facility] - 05/25/2025 12:48 AM CDT STAT PTT timing: - Draw 6 hours after heparin infusion initiation - Draw 6 hours after every dose change until 2 consecutive PTTs are therapeutic - Once 2 consecutive PTTs are therapeutic, obtain with daily labs until infusion is discontinued - - Restart every 6 hour lab draws and follow instructions accordingly if PTT is outside of therapeutic range Do not draw lab from IV line that is actively infusing heparin. Use the opposite arm. If arm with actively infusing heparin must be used, pause the infusion for at least 2 minutes, and draw specimen below the IV site. For patients with a central venous catheter (CVC), lab must be drawn peripherally (not from CVC). Libia Suarez SWEET [employer] DISINTEGRATOR LAB BLOOD ORDERABLES Final Re sult Performing Organization Address [facility] Co de Phone Number [facility] [place] [address] * (ABNORMAL) CBC without differential (05/25/2025 12:06 AM CDT) [facility] WBC 15.48(H) 3.80 - 9.90 K/cumm Hgb 8.8(L) 13.0 - 17.5 g/dL [facility] Hct 26.7(L) 38.9 - 50.3 % [facility] Plt 139(L) 150 - 400 K/cumm [facility] MPV 11.0 9.1 - 12.[address] [facility] RBC 3.26(L) 4.30 - 5.80 M/cumm [facility] MCV 81.9 81.3 - 96.[address] [facility] MCH 27.0(L) 27.1 - 33.[address] [facility] MCHC 33.0 32.3 - 35.7 g/dL [facility] RDW CV 15.4(H) 11.1 - 14.9 % [facility] RDW SD 46.3 35.7 - 48.[address] [facility] NRBC abs 0.00 0.00 - 0.01 K/cumm [facility] Blood 05/25/2025 12:0 6 AM CDT 05/25/2025 12:32 AM CDT Zev Cowart MD PhD LAB BLOOD ORDERABLES Fi nal Result Performing Organization Address [facility]/ZIP Co de Phone Number [facility] [place] [address] * (ABNORMAL) Phosphorus (05/25/2025 12:06 AM CDT) [facility] Phosphorus, pl 6.5(H) 2.3 - 4.5 mg/dL Blood 05/25/2025 12:0 6 AM CDT 05/25/2025 1:01 AM CDT Addy Tapia MD LAB BLOOD ORDERABLES Fin al Result Performing Organization Address [facility] de Phone Number [facility] [place] [address] * (ABNORMAL) Magnesium (05/25/2025 12:06 AM CDT) [facility] Magnesium 2.7(H) 1.4 - 2.5 mg/dL Blood 05/25/2025 12:0 6 AM CDT 05/25/2025 1:01 AM CDT Addy Tapia MD LAB BLOOD ORDERABLES Fin al Result Performing Organization Address [facility] de Phone Number [facility] [place] [address] * Lipase (05/25/2025 12:06 AM CDT) [facility] Lipase 28 10 - 99 Units/L Blood 05/25/2025 12:0 6 AM CDT 05/25/2025 1:01 AM CDT Addy Tapia MD LAB BLOOD ORDERABLES Fin al Result Performing Organization Address [facility] de Phone Number [facility] [place] [address] * (ABNORMAL) Blood gas, arterial (05/25/2025 12:06 AM CDT) Pathologist [facility] pH, Art 7.39 7.35 - 7.45 PCO2, Arterial 39 35 - [address] [facility] PO2, Arterial 113(H) 83 - [address] [facility] HCO3 Art (Calculated) 24 20 - 30 mmol/L [facility] BE, art -1 mmol/L [facility] Comment: Interpretive Data No Reference Range Established Current Interpretive Data was last revised on 2017 O2 Sat Art (Measured) 99(H) 90 - 95 % [facility] Blood 05/25/2025 12:0 6 AM CDT 05/25/2025 12:27 AM CDT Addy Tapia MD LAB BLOOD ORDERABLES Fin al Result Performing Organization Address [facility] Co de Phone Number [facility] [place] [address] * (ABNORMAL) Hepatic function panel (05/25/2025 12:06 AM CDT) Bilirubin, total 0.8 0.1 - 1.2 mg/dL Bilirubin, direct 0.5(H) 0.1 - 0.3 mg/dL [facility] Protein, pl 6.3(L) 6.5 - 8.5 g/dL [facility] Albumin 4.0 3.5 - 5.0 g/dL [facility] Alk phos 145(H) 40 - 130 Units/L [facility] ALT 29 7 - 55 Units/L [facility] AST 34 10 - 50 Units/L [facility] Blood 05/25/2025 12:0 6 AM CDT 05/25/2025 1:01 AM CDT us Bar Gamble MD LAB BLOOD ORDERABLES Final R esult Performing Organization Address [facility]/ZIP Co de Phone Number [facility] [place] [address] * (ABNORMAL) Basic metabolic panel (05/25/2025 12:06 AM CDT) Sodium 141 135 - 145 mmol/L Potassium, pl 4.2 3.3 - 4.9 mmol/L [facility] Chloride 99 97 - 110 mmol/L [facility] CO2 23 22 - 32 mmol/L [facility] Anion gap 19(H) 2 - 15 mmol/L [facility] BUN 83(H) 6 - 25 mg/dL [facility] Creatinine 2.75(H) 0.80 - 1.30 mg/dL [facility] Glucose 125 70 - 199 mg/dL [facility] Comment: Interpretive Data Fasting glucose >/= 126 mg/dl is diagnostic for diabetes. Fasting is defined as no caloric intake for at least 8 hours. Fasting glucose between 100 mg/dl to 125 mg/dl is diagnostic of prediabetes. In a patient with classic symptoms of hyperglycemia or hyperglycemic crisis, a random glucose >/= 200 mg/dl is diagnostic for diabetes. In the absence of unequivocal hyperglycemia, results should be confirmed by repeat testing. The classification and Diagnosis of Diabetes Diabetes Care 2021; 46: S19-S40. Current interpretive data was last revised 2022. Calcium 9.3 8.5 - 10.3 mg/dL [facility] Blood 05/25/2025 12:0 6 AM CDT 05/25/2025 1:01 AM CDT Addy Tapia MD LAB BLOOD ORDERABLES Fin al Result [facility] [place] [address] * (ABNORMAL) POC Blood Gas and Chemistries, Arterial - (05/24/2025 11:39 PM CDT) Pathologist [facility] pH, Art POC 7.41 7.35 - 7.45 pCO2, Art POC 39 35 - [address] [facility] pO2, Art POC 101 83 - [address] [facility] Na, POC 138 135 - 145 mmol/L [facility] K POC 4.2 3.3 - 4.9 mmol/L [facility] Comment: Interpretive Data Not all point of care methods assess for hemolysis. Confirm with instrument and retest K+ if not consistent with clinical signs and symptoms. Current Interpretive Data was last revised on 2024. Cl, POC 105 97 - 110 mmol/L [facility] Ionized Ca, POC 4.76 4.50 - 5.10 mg/dL [facility] Glucose, POC 123 70 - 199 mg/dL [facility] Lactate POC 0.8 0.7 - 2.0 mmol/L [facility] SO2 (sameer) arterial 98(H) 90 - 95 % [facility] Base excess, POC 0.1 mmol/L [facility] HCO3, Art POC 25 20 - 30 mmol/L [facility] Hct, POC 28.0(L) 41.4 - 51.6 % [facility] Total Hb, POC 9.2(L) 13.8 - 17.2 g/dL [facility] Blood 05/24/2025 11:3 9 PM CDT 05/24/2025 11:39 PM CDT Addy Tapia MD LAB POCT ORDERABLES - DE VICE Final Result Performing Organization Address City/[facility]/ZIP Co de Phone Number [facility] [place] [address] * POCT glucose (05/24/2025 11:25 PM CDT) [facility] Glucose, POC 123 70 - 199 mg/dL Blood 05/24/2025 11:2 5 PM CDT 05/24/2025 11:25 PM CDT Addy Tapia MD LAB POCT ORDERABLES - DE VICE Final Result Performing Organization Address City/[facility]/ZIP Co de Phone Number [facility] [place] [address] * CT Abdomen Pelvis WO Contrast (05/24/2025 11:00 PM CDT) Anatomical Region Laterality Modality Body N/A Computed Tomogra phy 05/24/2025 11:2 0 PM CDT Impressions 05/25/2025 8:03 AM CDT 1. Expected postsurgical changes of orthotopic heart transplantation with trace pneumomediastinum, likely postsurgical. 2. No evidence of bowel obstruction as queried. 3. Small volume pneumobilia, new from the preoperative examination. Recommend correlation with recent sphincterotomy. 4. Findings of volume overload as evidenced by small to moderate bilateral pleural effusions, mesenteric edema, diffuse body wall anasarca, and small volume ascites. Dictated by: Manuel Alvarenga MD The radiology attending physician has personally reviewed this study, and had reviewed and/or edited this written report and agrees with it. Electronically signed by: Jorgito Skelton M.D. Narrative 05/25/2025 8:03 AM CDT EXAMINATION: CT of the abdomen and pelvis without intravenous contrast. HISTORY: Status post heart transplant on 05/20/2025. Concern for bowel obstruction.. TECHNIQUE: Transaxial computed tomographic images of the abdomen and pelvis were obtained without intravenous contrast according to the standard protocol. COMPARISON: CT 04/08/2025. FINDINGS: Partially imaged small to moderate bilateral pleural effusions with collapse of the bilateral lower lobes likely on the basis of mucous plugging. Additional scattered areas of atelectasis involving the right middle lobe and lingula. Interval postsurgical changes of median sternotomy, sternal plate fixation, and orthotopic heart transplantation. There is a trace pericardial effusion. Pericardial and mediastinal drains are noted which courses outside the [id number]. Gastric tube terminates at the antrum. Esophagus is nondistended. Trace pneumomediastinum is noted, likely postsurgical. Bilateral gynecomastia is noted. There is small volume pneumobilia, new from the preoperative examination. Mild hepatic surface nodularity, which can be seen in setting of hepatic fibrosis/cirrhosis. Spleen, pancreas, and adrenal glands have a normal noncontrast appearance. No hydronephrosis or nephrolithiasis. Urinary bladder is decompressed around a Lau catheter with intraluminal gas likely postprocedural. Trace ascites. No pneumoperitoneum. No focal bowel wall thickening or evidence of obstruction. Mild rectal wall thickening likely due to distention. Prominent but not pathologically enlarged mesenteric or retroperitoneal nodes are likely reactive. Mild mesenteric edema. These body wall edema. Abdominal aorta is normal in caliber mildly atherosclerotic. There is a right femoral venous catheter which terminates in the right external iliac vein. Degenerative changes of the lumbar spine. No cysts osseous lesions. Procedure Note Jorgito Skelton MD - 05/25/2025 EXAMINATION: CT of the abdomen and pelvis without intravenous contrast. HISTORY: Status post heart transplant on 05/20/2025. Concern for bowel obstruction.. TECHNIQUE: Transaxial computed tomographic images of the abdomen and pelvis were obtained without intravenous contrast according to the standard protocol. COMPARISON: CT 04/08/2025. FINDINGS: Partially imaged small to moderate bilateral pleural effusions with collapse of the bilateral lower lobes likely on the basis of mucous plugging. Additional scattered areas of atelectasis involving the right middle lobe and lingula. Interval postsurgical changes of median sternotomy, sternal plate fixation, and orthotopic heart transplantation. There is a trace pericardial effusion. Pericardial and mediastinal drains are noted which courses outside the [id number]. Gastric tube terminates at the antrum. Esophagus is nondistended. Trace pneumomediastinum is noted, likely postsurgical. Bilateral gynecomastia is noted. There is small volume pneumobilia, new from the preoperative examination. Mild hepatic surface nodularity, which can be seen in setting of hepatic fibrosis/cirrhosis. Spleen, pancreas, and adrenal glands have a normal noncontrast appearance. No hydronephrosis or nephrolithiasis. Urinary bladder is decompressed around a Lau catheter with intraluminal gas likely postprocedural. Trace ascites. No pneumoperitoneum. No focal bowel wall thickening or evidence of obstruction. Mild rectal wall thickening likely due to distention. Prominent but not pathologically enlarged mesenteric or retroperitoneal nodes are likely reactive. Mild mesenteric edema. These body wall edema. Abdominal aorta is normal in caliber mildly atherosclerotic. There is a right femoral venous catheter which terminates in the right external iliac vein. Degenerative changes of the lumbar spine. No cysts osseous lesions. IMPRESSION: 1. Expected postsurgical changes of orthotopic heart transplantation with trace pneumomediastinum, likely postsurgical. 2. No evidence of bowel obstruction as queried. 3. Small volume pneumobilia, new from the preoperative examination. Recommend correlation with recent sphincterotomy. 4. Findings of volume overload as evidenced by small to moderate bilateral pleural effusions, mesenteric edema, diffuse body wall anasarca, and small volume ascites. Dictated by: Manuel Alvarenga MD The radiology attending physician has personally reviewed this study, and had reviewed and/or edited this written report and agrees with it. Electronically signed by: Jorgito Skelton M.D. Addy Tapia MD IMG CT PROCEDURES Final Result * POCT glucose (05/24/2025 10:01 PM CDT) Glucose, POC 122 70 - 199 mg/dL Blood 05/24/2025 10:0 1 PM CDT 05/24/2025 10:01 PM CDT Addy Tapia MD LAB POCT ORDERABLES - DE VICE Final Result Performing Organization Address [facility] Co de Phone Number [facility] [place] [address] * POCT glucose (05/24/2025 8:53 PM CDT) Glucose, POC 144 70 - 199 mg/dL Blood 05/24/2025 8:53 PM CDT 05/24/2025 8:53 PM CDT Addy Tapia MD LAB POCT ORDERABLES - DE VICE Final Result Performing Organization Address [facility] Co az Phone Number [facility] [place] [address] * XR Chest 1 View (05/24/2025 7:55 PM CDT) Anatomical Region Laterality Modality Body, Chest N/A Computed Radiogr aphy 05/25/2025 7:46 AM CDT Impressions 05/25/2025 7:47 AM CDT Comparison is made to chest radiograph 06/19/2025. Postsurgical changes of median sternotomy, sternal plates are unchanged in position. [place] catheter tip terminating at the level of main pulmonary artery. Internal jugular central venous catheter tip terminating at the superior cavoatrial junction. Mediastinal drains unchanged position. Epicardial pacing wires present. Stable cardiomediastinal silhouette. Unchanged moderate right small left pleural effusions with posterior layering. No pulmonary consolidation. No pneumothorax. Dictated by: Daiana Ceron MD The radiology attending physician has personally reviewed this study, and had reviewed and/or edited this written report and agrees with it. Electronically signed by: Jessica Jackson M.D. Narrative 05/25/2025 7:47 AM CDT EXAMINATION: 1 view chest radiograph Procedure Note Jessica Jackson MD - 05/25/2025 EXAMINATION: 1 view chest radiograph IMPRESSION: Comparison is made to chest radiograph 06/19/2025. Postsurgical changes of median sternotomy, sternal plates are unchanged in position. [place] catheter tip terminating at the level of main pulmonary artery. Internal jugular central venous catheter tip terminating at the superior cavoatrial junction. Mediastinal drains unchanged position. Epicardial pacing wires present. Stable cardiomediastinal silhouette. Unchanged moderate right small left pleural effusions with posterior layering. No pulmonary consolidation. No pneumothorax. Dictated by: Daiana Ceron MD The radiology attending physician has personally reviewed this study, and had reviewed and/or edited this written report and agrees with it. Electronically signed by: Jessica Jackson M.D. Addy Tapia MD IMG XR PROCEDURES Final Result * POCT glucose (05/24/2025 7:48 PM CDT) [facility] Signature Glucose, POC 151 70 - 199 mg/dL Blood 05/24/2025 7:48 PM CDT 05/24/2025 7:48 PM CDT Addy Tapia MD LAB POCT ORDERABLES - DE VICE Final Result [facility] [place] [address] * POCT glucose (05/24/2025 6:32 PM CDT) [facility] Glucose, POC 168 70 - 199 mg/dL Blood 05/24/2025 6:32 PM CDT 05/24/2025 6:32 PM CDT Addy Tapia MD LAB POCT ORDERABLES - DE VICE Final Result Performing Organization Address [facility] Co de Phone Number [facility] [place] [address] * POCT glucose (05/24/2025 5:42 PM CDT) [facility] Glucose, POC 163 70 - 199 mg/dL Blood 05/24/2025 5:42 PM CDT 05/24/2025 5:42 PM CDT Addy Tapia MD LAB POCT ORDERABLES - DE VICE Final Result Performing Organization Address [facility] Co de Phone Number [facility] [place] [address] * (ABNORMAL) Hemoglobin total, pulmonary artery (05/24/2025 3:53 PM CDT) [facility] Hemoglobin total, PA 9.1(L) 13.0 - 17.5 g/dL Blood 05/24/2025 3:53 PM CDT 05/24/2025 4:01 PM CDT Bar Gamble MD LAB BLOOD ORDERABLES Final R esult Performing Organization Address City/[facility] [place] [address] * (ABNORMAL) eGFR (05/24/2025 3:53 PM CDT) [facility] eGFR 28(L) >=60 mL/min/1. 73 m2 Comment: Interpretive Data Reference Interval Normal >/= 90 mL/min/1.73m2 Mildly decreased* 60 - 89 mL/min/1.73m2 Mildly to moderately decreased 45 - 59 mL/min/1.73m2 Moderately to severely decreased 30 - 44 mL/min/1.73m2 Severely decreased 15 - 29 mL/min/1.73m2 Kidney Failure < 15 mL/min/1.73m2 *Relative to young adult level Estimated glomerular filtration rate is determined by the 2020 CKD-EPI equation recommended by the National Kidney [employer] (A Unifying Approach to GFR Estimation: Recommendations of the NKF-ASK Task Force on Reassessing the Inclusion of Race in Diagnosing Kidney Disease, JASN 2020). The CKD-EPI equation should not be used for patients with unstable renal function and has not been validated in children and those over 70. Current interpretive data was last reviewed 2021. Blood 05/24/2025 3:53 PM CDT 05/24/2025 4:11 PM CDT Addy Tapia MD LAB BLOOD ORDERABLES Fin al Result [facility] [place] [address] * (ABNORMAL) Basic metabolic panel (05/24/2025 3:53 PM CDT) Sodium 138 135 - 145 mmol/L Potassium, pl 4.5 3.3 - 4.9 mmol/L [facility] Chloride 99 97 - 110 mmol/L [facility] CO2 21(L) 22 - 32 mmol/L [facility] Anion gap 18(H) 2 - 15 mmol/L [facility] BUN 78(H) 6 - 25 mg/dL [facility] Creatinine 2.57(H) 0.80 - 1.30 mg/dL [facility] Glucose 199 70 - 199 mg/dL [facility] Comment: Interpretive Data Fasting glucose >/= 126 mg/dl is diagnostic for diabetes. Fasting is defined as no caloric intake for at least 8 hours. Fasting glucose between 100 mg/dl to 125 mg/dl is diagnostic of prediabetes. In a patient with classic symptoms of hyperglycemia or hyperglycemic crisis, a random glucose >/= 200 mg/dl is diagnostic for diabetes. In the absence of unequivocal hyperglycemia, results should be confirmed by repeat testing. The classification and Diagnosis of Diabetes Diabetes Care 2021; 46: S19-S40. Current interpretive data was last revised 2022. Calcium 9.2 8.5 - 10.3 mg/dL [facility] Blood 05/24/2025 3:53 PM CDT 05/24/2025 4:11 PM CDT Addy Tapia MD LAB BLOOD ORDERABLES Fin al Result Performing Organization Address City/[facility]/ZIP Co de Phone Number [facility] [place] [address] * POCT glucose (05/24/2025 3:51 PM CDT) Glucose, POC 199 70 - 199 mg/dL Blood 05/24/2025 3:51 PM CDT 05/24/2025 3:51 PM CDT Addy Tapia MD LAB POCT ORDERABLES - DE VICE Final Result Performing Organization Address City/[facility] Co de Phone Number [facility] [place] [address] * POCT glucose (05/24/2025 2:26 PM CDT) Glucose, POC 177 70 - 199 mg/dL Blood 05/24/2025 2:26 PM CDT 05/24/2025 2:26 PM CDT Addy Tapia MD LAB POCT ORDERABLES - DE VICE Final Result Performing Organization Address City/[facility] Co de Phone Number [facility] [place] [address] * Oxyhemoglobin, pulmonary artery (05/24/2025 1:00 PM CDT) Oxyhemoglobin, PA 72.8 % Comment: Interpretive Data No reference range established. Current interpretive data was last revised 2020. Blood 05/24/2025 1:00 PM CDT 05/24/2025 1:20 PM CDT us Addy Tapia MD LAB BLOOD ORDERABLES Fin al Result Performing Organization Address [facility] Co de Phone Number [facility] [place] [address] * (ABNORMAL) Hemoglobin total, pulmonary artery (05/24/2025 1:00 PM CDT) Pathologist [facility] Hemoglobin total, PA 9.4(L) 13.0 - 17.5 g/dL Blood 05/24/2025 1:00 PM CDT 05/24/2025 1:20 PM CDT us Zev Cowart MD PhD LAB BLOOD ORDERABLES Fi nal Result Performing Organization Address [facility] Co de Phone Number [facility] [place] [address] * Potassium, whole blood (05/24/2025 1:00 PM CDT) Pathologist [facility] Potassium, bld 4.3 3.3 - 4.9 mmol/L Blood 05/24/2025 1:00 PM CDT 05/24/2025 1:20 PM CDT us Bar Gamble MD LAB BLOOD ORDERABLES Final R esult Performing Organization Address [facility] Co de Phone Number [facility] [place] [address] * (ABNORMAL) Blood gas, arterial (05/24/2025 1:00 PM CDT) pH, Art 7.37 7.35 - 7.45 PCO2, Arterial 35 35 - [address] [facility] PO2, Arterial 101 83 - [address] [facility] HCO3 Art (Calculated) 21 20 - 30 mmol/L [facility] BE, art -4 mmol/L [facility] Comment: Interpretive Data No Reference Range Established Current Interpretive Data was last revised on 2017 O2 Sat Art (Measured) 99(H) 90 - 95 % [facility] Blood 05/24/2025 1:00 PM CDT 05/24/2025 1:20 PM CDT Addy Tapia MD LAB BLOOD ORDERABLES Fin al Result Performing Organization Address [facility]/ZIP Co de Phone Number [facility] [place] [address] * POCT glucose (05/24/2025 12:38 PM CDT) Glucose, POC 148 70 - 199 mg/dL Blood 05/24/2025 12:3 8 PM CDT 05/24/2025 12:38 PM CDT Addy Tapia MD LAB POCT ORDERABLES - DE VICE Final Result Performing Organization Address [facility] Co de Phone Number [facility] [place] [address] * POCT glucose (05/24/2025 11:13 AM CDT) Glucose, POC 107 70 - 199 mg/dL Blood 05/24/2025 11:1 3 AM CDT 05/24/2025 11:13 AM CDT Addy Tapia MD LAB POCT ORDERABLES - DE VICE Final Result Performing Organization Address [facility] Co de Phone Number [facility] [place] [address] * XR Abdomen Erect and or Decubitus 2 Views (05/24/2025 10:33 AM CDT) Anatomical Region Laterality Modality Body, Abdomen N/A Digital Radiogra phy 05/25/2025 9:13 AM CDT Impressions 05/26/2025 2:15 PM CDT Supine and crosstable lateral views of the abdomen are submitted for evaluation. Gastric tube tip and side-port project over the gastric body. There are partially visualized mediastinal drains in place. Small bilateral pleural effusions. A temperature probe Lau catheter is in place. Dilated loops of primarily large bowel with few loops of mildly dilated small bowel, favored to represent ileus in the postsurgical setting. No evidence of intraperitoneal free air on the crosstable lateral views. Dictated by: Gerardo Vidales M.D. The radiology attending physician has personally reviewed this study, and had reviewed and/or edited this written report and agrees with it. Electronically signed by: Ashlee Levin M.D. Narrative 05/26/2025 2:15 PM CDT EXAMINATION: Abdomen with decubitus and/or erect views. HISTORY: Concern for small bowel obstruction. COMPARISON: 05/24/2025 at 12:55 AM Procedure Note Ashlee Levin MD - 05/26/2025 EXAMINATION: Abdomen with decubitus and/or erect views. HISTORY: Concern for small bowel obstruction. COMPARISON: 05/24/2025 at 12:55 AM IMPRESSION: Supine and crosstable lateral views of the abdomen are submitted for evaluation. Gastric tube tip and side-port project over the gastric body. There are partially visualized mediastinal drains in place. Small bilateral pleural effusions. A temperature probe Lau catheter is in place. Dilated loops of primarily large bowel with few loops of mildly dilated small bowel, favored to represent ileus in the postsurgical setting. No evidence of intraperitoneal free air on the crosstable lateral views. Dictated by: Gerardo Vidales M.D. The radiology attending physician has personally reviewed this study, and had reviewed and/or edited this written report and agrees with it. Electronically signed by: Ashlee Levin M.D. Addy Tapia MD IMG XR PROCEDURES Final Result * POCT glucose (05/24/2025 10:25 AM CDT) Glucose, POC 89 70 - 199 mg/dL Blood 05/24/2025 10:2 5 AM CDT 05/24/2025 10:25 AM CDT Addy Tapia MD LAB POCT ORDERABLES - DE VICE Final Result [facility] [place] [address] * (ABNORMAL) Differential, auto (05/24/2025 10:19 AM CDT) Pathologist [facility] Neutrophil abs 18.80(H) 1.50 - 6.50 K/cumm Imm gran abs 0.23(H) 0.00 - 0.10 K/cumm [facility] Lymphocyte abs 0.33(L) 0.80 - 3.30 K/cumm [facility] Monocyte abs 1.05(H) 0.20 - 0.80 K[facility] Eosinophil abs 0.00 0.00 - 0.50 K/cumm [facility] Basophil abs 0.02 0.00 - 0.10 K/cumm [facility] Neutrophil pct 92.1 % [facility] Comment: Interpretive Data Percent cell count reference ranges are not reported, since discordance with absolute values may lead to misinterpretation of CBC data. Current Interpretive Data was last revised on 2018. Imm gran pct 1.1 % [facility] Comment: Interpretive Data Percent cell count reference ranges are not reported, since discordance with absolute values may lead to misinterpretation of CBC data. Current Interpretive Data was last revised on 2018. Lymphocyte pct 1.6 % [facility] Comment: Interpretive Data Percent cell count reference ranges are not reported, since discordance with absolute values may lead to misinterpretation of CBC data. Current Interpretive Data was last revised on 2018. Monocyte pct 5.1 % [facility] Comment: Interpretive Data Percent cell count reference ranges are not reported, since discordance with absolute values may lead to misinterpretation of CBC data. Current Interpretive Data was last revised on 2018. Eosinophil pct 0.0 % [facility] Comment: Interpretive Data Percent cell count reference ranges are not reported, since discordance with absolute values may lead to misinterpretation of CBC data. Current Interpretive Data was last revised on 2018. Basophil pct 0.1 % [facility] Comment: Interpretive Data Percent cell count reference ranges are not reported, since discordance with absolute values may lead to misinterpretation of CBC data. Current Interpretive Data was last revised on 2018. Blood 05/24/2025 10:1 9 AM CDT 05/24/2025 10:57 AM CDT Addy Tapia MD LAB BLOOD ORDERABLES Fin al Result [facility] [place] [address] * (ABNORMAL) CBC with auto differential (05/24/2025 10:19 AM CDT) WBC 20.43(H) 3.80 - 9.90 K/cumm Hgb 8.9(L) 13.0 - 17.5 g/dL [facility] Hct 27.4(L) 38.9 - 50.3 % [facility] Plt 151 150 - 400 K/cumm [facility] MPV 11.7 9.1 - 12.[address] [facility] RBC 3.29(L) 4.30 - 5.80 M/cumm [facility] MCV 83.3 81.3 - 96.[address] [facility] MCH 27.1 27.1 - 33.[address] [facility] MCHC 32.5 32.3 - 35.7 g/dL [facility] RDW CV 15.3(H) 11.1 - 14.9 % [facility] RDW SD 47.5 35.7 - 48.[address] [facility] NRBC abs 0.00 0.00 - 0.01 K/cumm [facility] Blood 05/24/2025 10:1 9 AM CDT 05/24/2025 10:57 AM CDT Addy Tapia MD LAB BLOOD ORDERABLES Fin al Result Performing Organization Address [facility] de Phone Number [facility] [place] [address] * (ABNORMAL) Hepatitis C (HCV) RNA PCR, quantitative Blood (05/24/2025 10:19 AM CDT) [facility] HCV RNA result Detected( A) [facility] Comment: The quantifiable range of this assay is 15 IU/mL to 100,000,000 IU/mL (1.18 log IU/mL to 8.00 log IU/mL). Testing was performed by the CAR[employer]OS 6800 HCV Test ([employer] Testing performed at [facility] Current Interpretive Data was last revised on 2021 HCV RNA IU/mL 11,800 IUnits/mL [facility] HCV RNA log IU/mL 4.07 log IUnits/mL [facility] Blood 05/24/2025 10:1 9 AM CDT 05/24/2025 10:37 AM CDT Emeli Jarvis MD LAB MICROBIOLOGY - GENERA L ORDERABLES Final Result Performing Organization Address [facility] Co de Phone Number [facility] [place] [address] [facility] * Critical Care (05/24/2025 8:33 AM CDT) Narrative Stephanie Hood MD - 05/24/2025 8:33 AM CDT Stephanie Hood MD 05/24/2025 9:13 AM Critical Care Performed by: Stephanie Hood MD Authorized by: Stephanie Hood MD CRITICAL CARE: Team: 83 CTICU Shift: AM Level of Billing: Critical Care My time spent with this patient was 75 minutes: Critical Provider Statement: I have seen and examined the patient on this day of service. I have reviewed and confirmed the history, physical exam, laboratory and radiologic data as documented in the signed ICU note. I have reviewed and discussed my treatment plan with the ICU team and other medical/senior safety management consultant staff, making frequent assessments and decisions regarding this patient's complex medical care. Critical Care time was exclusive of time spent performing separately billed procedures, treating other patients, and teaching. This time was in addition to and separate from critical care provided by other practitioners in my group on this day of service. Critical Care was necessary to treat or prevent imminent or life-threatening deterioration of the following conditions: Acute pain/acute postoperative pain Vasoplegic shock RV dysfunction Postop ileus Protein-calorie malnutrition Acute kidney injury This time was spent by me doing the following: Acute pain control and Administration of sedatives and psychotropic medications Cardiac pacing, Initiation/active titration of vasoactive medications and Initiation/active titration of inotropic medications Decompressive NGT Postop ileus Incentive spirometry, pulmonary toilet Active diuresis and Active repletion of electrolytes I spent time reviewing and interpreting data from bedside monitors, laboratory results, and imaging, I spent time discussing the management of this critically ill patient with consultants and the medical staff and I spent time documenting in the medical record us Stephanie Hood MD IN CLINIC/BEDSIDE ORDERA BLES Final Result * POCT glucose (05/24/2025 8:19 AM CDT) [facility] Glucose, POC 115 70 - 199 mg/dL Blood 05/24/2025 8:19 AM CDT 05/24/2025 8:19 AM CDT us Addy Tapia MD LAB POCT ORDERABLES - DE VICE Final Result [facility] [place] [address] * (ABNORMAL) eGFR (05/24/2025 7:36 AM CDT) eGFR 29(L) >=60 mL/min/1. 73 m2 Comment: Interpretive Data Reference Interval Normal >/= 90 mL/min/1.73m2 Mildly decreased* 60 - 89 mL/min/1.73m2 Mildly to moderately decreased 45 - 59 mL/min/1.73m2 Moderately to severely decreased 30 - 44 mL/min/1.73m2 Severely decreased 15 - 29 mL/min/1.73m2 Kidney Failure < 15 mL/min/1.73m2 *Relative to young adult level Estimated glomerular filtration rate is determined by the 2020 CKD-EPI equation recommended by the National Kidney [employer] (A Unifying Approach to GFR Estimation: Recommendations of the NKF-ASK Task Force on Reassessing the Inclusion of Race in Diagnosing Kidney Disease, JASN 2020). The CKD-EPI equation should not be used for patients with unstable renal function and has not been validated in children and those over 70. Current interpretive data was last reviewed 2021. Blood 05/24/2025 7:36 AM CDT 05/24/2025 7:56 AM CDT Addy Tapia MD LAB BLOOD ORDERABLES Fin al Result [facility] [place] [address] * POCT glucose (05/24/2025 7:36 AM CDT) Glucose, POC 130 70 - 199 mg/dL Blood 05/24/2025 7:36 AM CDT 05/24/2025 7:36 AM CDT Addy Tapia MD LAB POCT ORDERABLES - DE VICE Final Result [facility] [place] [address] * (ABNORMAL) Basic metabolic panel (05/24/2025 7:36 AM CDT) Sodium 138 135 - 145 mmol/L Potassium, pl 4.2 3.3 - 4.9 mmol/L [facility] Chloride 101 97 - 110 mmol/L [facility] CO2 24 22 - 32 mmol/L [facility] Anion gap 13 2 - 15 mmol/L [facility] BUN 75(H) 6 - 25 mg/dL [facility] Creatinine 2.50(H) 0.80 - 1.30 mg/dL [facility] Glucose 129 70 - 199 mg/dL [facility] Comment: Interpretive Data Fasting glucose >/= 126 mg/dl is diagnostic for diabetes. Fasting is defined as no caloric intake for at least 8 hours. Fasting glucose between 100 mg/dl to 125 mg/dl is diagnostic of prediabetes. In a patient with classic symptoms of hyperglycemia or hyperglycemic crisis, a random glucose >/= 200 mg/dl is diagnostic for diabetes. In the absence of unequivocal hyperglycemia, results should be confirmed by repeat testing. The classification and Diagnosis of Diabetes Diabetes Care 2021; 46: S19-S40. Current interpretive data was last revised 2022. Calcium 8.5 8.5 - 10.3 mg/dL [facility] Blood 05/24/2025 7:36 AM CDT 05/24/2025 7:56 AM CDT Addy Tapia MD LAB BLOOD ORDERABLES Fin al Result [facility] [place] [address] * POCT glucose (05/24/2025 6:06 AM CDT) Glucose, POC 153 70 - 199 mg/dL Blood 05/24/2025 6:06 AM CDT 05/24/2025 6:06 AM CDT Addy Tapia MD LAB POCT ORDERABLES - DE VICE Final Result Performing Organization Address [facility]/ZIP Co de Phone Number [facility] [place] [address] * Tacrolimus level trough (05/24/2025 6:04 AM CDT) Tacrolimus trough 13.2 ng/mL Comment: Interpretive Data Testing performed by liquid chromatography-tandem mass spectrometry. Therapeutic concentrations vary depending on type of transplanted organ and time elapsed since transplant. Typical trough concentrations range from 5-15 ng/mL. This test was developed and its performance characteristics determined by the [facility] consistent with CLIA requirements. This test has not been cleared or approved by the [place] Food and Drug administration. Current interpretive data last reviewed 2020. Blood 05/24/2025 6:04 AM CDT 05/24/2025 6:30 AM CDT Zev Cowart MD PhD LAB BLOOD ORDERABLES Fi nal Result [facility] [place] [address] * (ABNORMAL) POC Blood Gas and Chemistries, Arterial - (05/24/2025 4:34 AM CDT) pH, Art POC 7.41 7.35 - 7.45 pCO2, Art POC 37 35 - [address] [facility] pO2, Art POC 80(L) 83 - [address] [facility] Na, POC 132(L) 135 - 145 mmol/L [facility] K POC 4.0 3.3 - 4.9 mmol/L [facility] Comment: Interpretive Data Not all point of care methods assess for hemolysis. Confirm with instrument and retest K+ if not consistent with clinical signs and symptoms. Current Interpretive Data was last revised on 2024. Cl, POC 102 97 - 110 mmol/L [facility] Ionized Ca, POC 4.46(L) 4.50 - 5.10 mg/dL [facility] Glucose, POC 142 70 - 199 mg/dL [facility] Lactate POC 0.9 0.7 - 2.0 mmol/L [facility] SO2 (sameer) arterial 96(H) 90 - 95 % [facility] Base excess, POC -0.8 mmol/L [facility] HCO3, Art POC 24 20 - 30 mmol/L [facility] Hct, POC 41.0(L) 41.4 - 51.6 % [facility] Total Hb, POC 13.5(L) 13.8 - 17.2 g/dL [facility] Blood 05/24/2025 4:34 AM CDT 05/24/2025 4:34 AM CDT Addy Tapia MD LAB POCT ORDERABLES - DE VICE Final Result [facility] [place] [address] * POCT glucose (05/24/2025 2:14 AM CDT) [facility] Glucose, POC 152 70 - 199 mg/dL Blood 05/24/2025 2:14 AM CDT 05/24/2025 2:14 AM CDT Addy Tapia MD LAB POCT ORDERABLES - DE VICE Final Result Performing Organization Address [facility] Co de Phone Number [facility] [place] [address] * XR Abdomen 1 View AP (05/24/2025 1:02 AM CDT) Anatomical Region Laterality Modality Body, Abdomen N/A Digital Radiogra phy 05/24/2025 3:32 AM CDT Impressions 05/24/2025 3:32 AM CDT 1. Single view abdomen 05/23/2025 at 7:06 PM is compared to prior study of 05/21/2025 at 8:25 AM.Again seen are midline drains and a partially imaged [place] catheter. There is no feeding tube or gastric tube identified. Mild gaseous distention of colon is seen which could be indicative of an adynamic ileus. No evidence for small bowel obstruction. 2. Single view chest from 05/24/2025 12:55 AM is compared to prior study of 05/22/2025 at 8:56 PM. Again seen is right internal jugular catheter with the tip identified tip [place] catheter overlies main pulmonary artery. Pericardial and mediastinal drains are again seen in this patient post median sternotomy. Note is made of a right internal jugular catheter with the tip at the junction of the superior vena cava/right atrium. Patient is post median sternotomy Moderate cardiac enlargement again noted with bilateral pleural effusions. When compared to the prior study, there has been no change in basilar atelectasis and aeration. There is no pulmonary edema or consolidation seen on the current study. Again seen are stable tiny pleural effusions. 3. Single view abdomen from 05/24/2025 at 12:55 AM is compared to the prior study and shows a new gastric tube ending over the stomach. Otherwise, no significant change. Electronically signed by: Kristian Hagan M.D. Narrative 05/24/2025 3:32 AM CDT Examination: 1. Single view abdomen 05/23/2025 7:06 PM 2. Single view chest 05/23/2025 8:57 PM 3. Single view chest 05/24/2025 12:55 AM Procedure Note Kristian Hagan MD - 05/24/2025 Examination: 1. Single view abdomen 05/23/2025 7:06 PM 2. Single view chest 05/23/2025 8:57 PM 3. Single view chest 05/24/2025 12:55 AM IMPRESSION: 1. Single view abdomen 05/23/2025 at 7:06 PM is compared to prior study of 05/21/2025 at 8:25 AM.Again seen are midline drains and a partially imaged [place] catheter. There is no feeding tube or gastric tube identified. Mild gaseous distention of colon is seen which could be indicative of an adynamic ileus. No evidence for small bowel obstruction. 2. Single view chest from 05/24/2025 12:55 AM is compared to prior study of 05/22/2025 at 8:56 PM. Again seen is right internal jugular catheter with the tip identified tip [place] catheter overlies main pulmonary artery. Pericardial and mediastinal drains are again seen in this patient post median sternotomy. Note is made of a right internal jugular catheter with the tip at the junction of the superior vena cava/right atrium. Patient is post median sternotomy Moderate cardiac enlargement again noted with bilateral pleural effusions. When compared to the prior study, there has been no change in basilar atelectasis and aeration. There is no pulmonary edema or consolidation seen on the current study. Again seen are stable tiny pleural effusions. 3. Single view abdomen from 05/24/2025 at 12:55 AM is compared to the prior study and shows a new gastric tube ending over the stomach. Otherwise, no significant change. Electronically signed by: Kristian Hagan M.D. Addy Tapia MD IMG XR PROCEDURES Final Result * POCT glucose (05/24/2025 12:16 AM CDT) Glucose, POC 113 70 - 199 mg/dL Blood 05/24/2025 12:1 6 AM CDT 05/24/2025 12:16 AM CDT Result [facility] Addy Tapia MD LAB POCT ORDERABLES - DE VICE Final Result Performing Organization Address [facility] Co de Phone Number [facility] [place] [address] * Oxyhemoglobin, pulmonary artery (05/23/2025 11:11 PM CDT) Oxyhemoglobin, PA 59.7 % Comment: Interpretive Data No reference range established. Current interpretive data was last revised 2020. Blood 05/23/2025 11:1 1 PM CDT 05/23/2025 11:35 PM CDT Addy Tapia MD LAB BLOOD ORDERABLES Fin al Result [facility] [place] [address] * (ABNORMAL) Hemoglobin total, pulmonary artery (05/23/2025 11:11 PM CDT) Hemoglobin total, PA 8.8(L) 13.0 - 17.5 g/dL Blood 05/23/2025 11:1 1 PM CDT 05/23/2025 11:35 PM CDT us Bar Gamble MD LAB BLOOD ORDERABLES Final R esult [facility] [place] [address] * Potassium, whole blood (05/23/2025 11:11 PM CDT) [facility] Potassium, bld 4.3 3.3 - 4.9 mmol/L Blood 05/23/2025 11:1 1 PM CDT 05/23/2025 11:35 PM CDT us Addy Tapia MD LAB BLOOD ORDERABLES Fin al Result Performing Organization Address City/[facility]/ZIP Co de Phone Number [facility] [place] [address] * (ABNORMAL) eGFR (05/23/2025 11:11 PM CDT) Pathologist [facility] eGFR 29(L) >=60 mL/min/1. 73 m2 Comment: Interpretive Data Reference Interval Normal >/= 90 mL/min/1.73m2 Mildly decreased* 60 - 89 mL/min/1.73m2 Mildly to moderately decreased 45 - 59 mL/min/1.73m2 Moderately to severely decreased 30 - 44 mL/min/1.73m2 Severely decreased 15 - 29 mL/min/1.73m2 Kidney Failure < 15 mL/min/1.73m2 *Relative to young adult level Estimated glomerular filtration rate is determined by the 2020 CKD-EPI equation recommended by the National Kidney Foundation (A Unifying Approach to GFR Estimation: Recommendations of the NKF-ASK Task Force on Reassessing the Inclusion of Race in Diagnosing Kidney Disease, JASN 2020). The CKD-EPI equation should not be used for patients with unstable renal function and has not been validated in children and those over 70. Current interpretive data was last reviewed 2021. Blood 05/23/2025 11:1 1 PM CDT 05/24/2025 12:38 AM CDT us Addy Tapia MD LAB BLOOD ORDERABLES Fin al Result [facility] [place] [address] * (ABNORMAL) CBC without differential (05/23/2025 11:11 PM CDT) WBC 18.85(H) 3.80 - 9.90 K/cumm Hgb 8.4(L) 13.0 - 17.5 g/dL [facility] Hct 25.0(L) 38.9 - 50.3 % [facility] Plt 127(L) 150 - 400 K/cumm [facility] MPV 11.0 9.1 - 12.[address] [facility] RBC 3.04(L) 4.30 - 5.80 M/cumm [facility] MCV 82.2 81.3 - 96.[address] [facility] MCH 27.6 27.1 - 33.[address] [facility] MCHC 33.6 32.3 - 35.7 g/dL [facility] RDW CV 15.3(H) 11.1 - 14.9 % [facility] RDW SD 46.1 35.7 - 48.[address] [facility] NRBC abs 0.00 0.00 - 0.01 K/cumm [facility] Blood 05/23/2025 11:1 1 PM CDT 05/23/2025 11:38 PM CDT us Zev Cowart MD PhD LAB BLOOD ORDERABLES Fi nal Result Performing Organization Address [facility] [place] [address] * Triglycerides (05/23/2025 11:11 PM CDT) Triglycerides 50 <=149 mg/dL Comment: Interpretive Data Ages < or = 9 years Acceptable: <75 mg/dL Borderline high: 75-99 mg/dL High: >or= 100 mg/dL Ages 10 to 20 years Acceptable: <90 mg/dL Borderline high: 90-129 mg/dL High: >or= 130 mg/dL Ages > or = 20 years Desirable: <150 mg/dL Borderline high: 150-199 mg/dL High: 200-499 mg/dL Very high: >or= 499 mg/dL Literature References: 1. Expert Panel on Integrated Guidelines for Cardiovascular Health and Risk Reduction in Children and Adolescents. Pediatrics 2011;128:S213 2. NCEP Expert Panel. Circulation 2004;110:227 Current Interpretive Data was last revised on 2018. Blood 05/23/2025 11:1 1 PM CDT 05/24/2025 12:06 AM CDT us Addy Tapia MD LAB BLOOD ORDERABLES Fin al Result Performing Organization Address [facility] [place] [address] * (ABNORMAL) Phosphorus (05/23/2025 11:11 PM CDT) Phosphorus, pl 6.2(H) 2.3 - 4.5 mg/dL Blood 05/23/2025 11:1 1 PM CDT 05/24/2025 12:06 AM CDT us Zev Cowart MD PhD LAB BLOOD ORDERABLES Fi nal Result Performing Organization Address [facility] Co de Phone Number [facility] [place] [address] * (ABNORMAL) Magnesium (05/23/2025 11:11 PM CDT) Magnesium 2.6(H) 1.4 - 2.5 mg/dL Blood 05/23/2025 11:1 1 PM CDT 05/24/2025 12:06 AM CDT Zev Cowart MD PhD LAB BLOOD ORDERABLES Fi nal Result Performing Organization Address [facility] de Phone Number [facility] [place] [address] * (ABNORMAL) Blood gas, arterial (05/23/2025 11:11 PM CDT) pH, Art 7.39 7.35 - 7.45 PCO2, Arterial 37 35 - [address] [facility] PO2, Arterial 61(L) 83 - [address] [facility] HCO3 Art (Calculated) 23 20 - 30 mmol/L [facility] BE, art -2 mmol/L [facility] Comment: Interpretive Data No Reference Range Established Current Interpretive Data was last revised on 2017 O2 Sat Art (Measured) 90 90 - 95 % [facility] Blood 05/23/2025 11:1 1 PM CDT 05/23/2025 11:35 PM CDT Addy Tapia MD LAB BLOOD ORDERABLES Fin al Result Performing Organization Address [facility] de Phone Number [facility] [place] [address] * (ABNORMAL) Hepatic function panel (05/23/2025 11:11 PM CDT) Bilirubin, total 0.8 0.1 - 1.2 mg/dL Bilirubin, direct 0.5(H) 0.1 - 0.3 mg/dL [facility] Protein, pl 6.2(L) 6.5 - 8.5 g/dL [facility] Albumin 4.0 3.5 - 5.0 g/dL [facility] Alk phos 135(H) 40 - 130 Units/L [facility] ALT 23 7 - 55 Units/L [facility] AST 42 10 - 50 Units/L [facility] Blood 05/23/2025 11:1 1 PM CDT 05/24/2025 12:06 AM CDT Bar Gamble MD LAB BLOOD ORDERABLES Final R esult [facility] [place] [address] * (ABNORMAL) Basic metabolic panel (05/23/2025 11:11 PM CDT) Pathologist [facility] Sodium 137 135 - 145 mmol/L Potassium, pl 4.3 3.3 - 4.9 mmol/L [facility] Chloride 99 97 - 110 mmol/L [facility] CO2 24 22 - 32 mmol/L [facility] Anion gap 14 2 - 15 mmol/L [facility] BUN 69(H) 6 - 25 mg/dL [facility] Creatinine 2.50(H) 0.80 - 1.30 mg/dL [facility] Glucose 153 70 - 199 mg/dL [facility] Comment: Interpretive Data Fasting glucose >/= 126 mg/dl is diagnostic for diabetes. Fasting is defined as no caloric intake for at least 8 hours. Fasting glucose between 100 mg/dl to 125 mg/dl is diagnostic of prediabetes. In a patient with classic symptoms of hyperglycemia or hyperglycemic crisis, a random glucose >/= 200 mg/dl is diagnostic for diabetes. In the absence of unequivocal hyperglycemia, results should be confirmed by repeat testing. The classification and Diagnosis of Diabetes Diabetes Care 202; 46: S19-S40. Current interpretive data was last revised 2022. Calcium 9.2 8.5 - 10.3 mg/dL [facility] Blood 05/23/2025 11:1 1 PM CDT 05/24/2025 12:06 AM CDT Addy Tapia MD LAB BLOOD ORDERABLES Fin al Result Performing Organization Address [facility] Co de Phone Number [facility] [place] [address] * Antibody identification (05/23/2025 10:38 PM CDT) Antibody ID 1 Anti-CD38 Comment:Panreactive -CD38 on reagent RBCs reacting with anti-CD38 therapy. DTT treatment removes cell surface CD38 and allows detection of common clinically significant antibodies except those against [place] antigens. TRANSFUSION 2015;55;[id number] Blood 05/23/2025 10:3 8 PM CDT 05/23/2025 10:38 PM CDT Libia Suarez NP LAB BLOOD BANK TEST ORDERABLE S Final Result Performing Organization Address [facility] Co de Phone Number [facility] [place] [address] * POCT glucose (05/23/2025 10:35 PM CDT) Glucose, POC 144 70 - 199 mg/dL Blood 05/23/2025 10:3 5 PM CDT 05/23/2025 10:35 PM CDT Addy Tapia MD LAB POCT ORDERABLES - DE VICE Final Result Performing Organization Address [facility] Co de Phone Number [facility] [place] [address] * XR Chest 1 View (05/23/2025 9:58 PM CDT) Anatomical Region Laterality Modality Body, Chest N/A Digital Radiogra phy 05/24/2025 3:32 AM CDT Impressions 05/24/2025 3:32 AM CDT 1. Single view abdomen 05/23/2025 at 7:06 PM is compared to prior study of 05/21/2025 at 8:25 AM.Again seen are midline drains and a partially imaged [place] catheter. There is no feeding tube or gastric tube identified. Mild gaseous distention of colon is seen which could be indicative of an adynamic ileus. No evidence for small bowel obstruction. 2. Single view chest from 05/24/2025 12:55 AM is compared to prior study of 05/22/2025 at 8:56 PM. Again seen is right internal jugular catheter with the tip identified tip [place] catheter overlies main pulmonary artery. Pericardial and mediastinal drains are again seen in this patient post median sternotomy. Note is made of a right internal jugular catheter with the tip at the junction of the superior vena cava/right atrium. Patient is post median sternotomy Moderate cardiac enlargement again noted with bilateral pleural effusions. When compared to the prior study, there has been no change in basilar atelectasis and aeration. There is no pulmonary edema or consolidation seen on the current study. Again seen are stable tiny pleural effusions. 3. Single view abdomen from 05/24/2025 at 12:55 AM is compared to the prior study and shows a new gastric tube ending over the stomach. Otherwise, no significant change. Electronically signed by: Kristian Hagan M.D. Narrative 05/24/2025 3:32 AM CDT Examination: 1. Single view abdomen 05/23/2025 7:06 PM 2. Single view chest 05/23/2025 8:57 PM 3. Single view chest 05/24/2025 12:55 AM Procedure Note Kristian Hagan MD - 05/24/2025 Examination: 1. Single view abdomen 05/23/2025 7:06 PM 2. Single view chest 05/23/2025 8:57 PM 3. Single view chest 05/24/2025 12:55 AM IMPRESSION: 1. Single view abdomen 05/23/2025 at 7:06 PM is compared to prior study of 05/21/2025 at 8:25 AM.Again seen are midline drains and a partially imaged [place] catheter. There is no feeding tube or gastric tube identified. Mild gaseous distention of colon is seen which could be indicative of an adynamic ileus. No evidence for small bowel obstruction. 2. Single view chest from 05/24/2025 12:55 AM is compared to prior study of 05/22/2025 at 8:56 PM. Again seen is right internal jugular catheter with the tip identified tip [place] catheter overlies main pulmonary artery. Pericardial and mediastinal drains are again seen in this patient post median sternotomy. Note is made of a right internal jugular catheter with the tip at the junction of the superior vena cava/right atrium. Patient is post median sternotomy Moderate cardiac enlargement again noted with bilateral pleural effusions. When compared to the prior study, there has been no change in basilar atelectasis and aeration. There is no pulmonary edema or consolidation seen on the current study. Again seen are stable tiny pleural effusions. 3. Single view abdomen from 05/24/2025 at 12:55 AM is compared to the prior study and shows a new gastric tube ending over the stomach. Otherwise, no significant change. Electronically signed by: Kristian Hagan M.D. Addy Tapia MD IMG XR PROCEDURES Final Result * POCT glucose (05/23/2025 9:23 PM CDT) Glucose, POC 135 70 - 199 mg/dL Blood 05/23/2025 9:23 PM CDT 05/23/2025 9:23 PM CDT Addy Tapia MD LAB POCT ORDERABLES - DE VICE Final Result [facility] [place] [address] * POCT glucose (05/23/2025 8:09 PM CDT) Glucose, POC 98 70 - 199 mg/dL Blood 05/23/2025 8:09 PM CDT 05/23/2025 8:09 PM CDT Addy Tapia MD LAB POCT ORDERABLES - DE VICE Final Result Performing Organization Address [facility] [place] [address] * (ABNORMAL) Type and screen (05/23/2025 8:08 PM CDT) Poppy, indirect Positive(A) ABO Rh O Positive [facility] Blood 05/23/2025 8:08 PM CDT 05/23/2025 8:38 PM CDT Narrative [facility] - 05/23/2025 10:38 PM CDT Has the patient had Daratumumab or Isatuximab in the past 6 months?->Unknown Libia Suarez NP LAB BLOOD BANK TEST ORDERABLE S Final Result Performing Organization Address [facility] [place] [address] * Lipase (05/23/2025 8:08 PM CDT) Lipase 11 10 - 99 Units/L Blood 05/23/2025 8:08 PM CDT 05/23/2025 8:23 PM CDT Addy Tapia MD LAB BLOOD ORDERABLES Fin al Result Performing Organization Address [facility] [place] [address] * XR Abdomen Ap 1 Vw (05/23/2025 7:45 PM CDT) Anatomical Region Laterality Modality Body, Abdomen N/A Digital Radiogra phy 05/24/2025 3:32 AM CDT Impressions 05/24/2025 3:32 AM CDT 1. Single view abdomen 05/23/2025 at 7:06 PM is compared to prior study of 05/21/2025 at 8:25 AM.Again seen are midline drains and a partially imaged [place] catheter. There is no feeding tube or gastric tube identified. Mild gaseous distention of colon is seen which could be indicative of an adynamic ileus. No evidence for small bowel obstruction. 2. Single view chest from 05/24/2025 12:55 AM is compared to prior study of 05/22/2025 at 8:56 PM. Again seen is right internal jugular catheter with the tip identified tip [place] catheter overlies main pulmonary artery. Pericardial and mediastinal drains are again seen in this patient post median sternotomy. Note is made of a right internal jugular catheter with the tip at the junction of the superior vena cava/right atrium. Patient is post median sternotomy Moderate cardiac enlargement again noted with bilateral pleural effusions. When compared to the prior study, there has been no change in basilar atelectasis and aeration. There is no pulmonary edema or consolidation seen on the current study. Again seen are stable tiny pleural effusions. 3. Single view abdomen from 05/24/2025 at 12:55 AM is compared to the prior study and shows a new gastric tube ending over the stomach. Otherwise, no significant change. Electronically signed by: Kristian Hagan M.D. Narrative 05/24/2025 3:32 AM CDT Examination: 1. Single view abdomen 05/23/2025 7:06 PM 2. Single view chest 05/23/2025 8:57 PM 3. Single view chest 05/24/2025 12:55 AM Procedure Note Kristian Hagan MD - 05/24/2025 Examination: 1. Single view abdomen 05/23/2025 7:06 PM 2. Single view chest 05/23/2025 8:57 PM 3. Single view chest 05/24/2025 12:55 AM IMPRESSION: 1. Single view abdomen 05/23/2025 at 7:06 PM is compared to prior study of 05/21/2025 at 8:25 AM.Again seen are midline drains and a partially imaged [place] catheter. There is no feeding tube or gastric tube identified. Mild gaseous distention of colon is seen which could be indicative of an adynamic ileus. No evidence for small bowel obstruction. 2. Single view chest from 05/24/2025 12:55 AM is compared to prior study of 05/22/2025 at 8:56 PM. Again seen is right internal jugular catheter with the tip identified tip [place] catheter overlies main pulmonary artery. Pericardial and mediastinal drains are again seen in this patient post median sternotomy. Note is made of a right internal jugular catheter with the tip at the junction of the superior vena cava/right atrium. Patient is post median sternotomy Moderate cardiac enlargement again noted with bilateral pleural effusions. When compared to the prior study, there has been no change in basilar atelectasis and aeration. There is no pulmonary edema or consolidation seen on the current study. Again seen are stable tiny pleural effusions. 3. Single view abdomen from 05/24/2025 at 12:55 AM is compared to the prior study and shows a new gastric tube ending over the stomach. Otherwise, no significant change. Electronically signed by: Kristian Hagan M.D. Addy Tapia MD IMG XR PROCEDURES Final Result * POCT glucose (05/23/2025 7:04 PM CDT) Glucose, POC 100 70 - 199 mg/dL Blood 05/23/2025 7:04 PM CDT 05/23/2025 7:04 PM CDT Addy Tapia MD LAB POCT ORDERABLES - DE VICE Final Result Performing Organization Address City/State/[facility] Co de Phone Number [facility] [place] [address] * POCT glucose (05/23/2025 6:07 PM CDT) Glucose, POC 117 70 - 199 mg/dL Blood 05/23/2025 6:07 PM CDT 05/23/2025 6:07 PM CDT Addy Tapia MD LAB POCT ORDERABLES - DE VICE Final Result Performing Organization Address City/[facility] Co de Phone Number [facility] [place] [address] * POCT glucose (05/23/2025 5:12 PM CDT) Glucose, POC 128 70 - 199 mg/dL Blood 05/23/2025 5:12 PM CDT 05/23/2025 5:12 PM CDT Addy Tapia MD LAB POCT ORDERABLES - DE VICE Final Result Performing Organization Address [facility] de Phone Number [facility] [place] [address] * Oxyhemoglobin, pulmonary artery (05/23/2025 4:08 PM CDT) Oxyhemoglobin, PA 65.8 % Comment: Interpretive Data No reference range established. Current interpretive data was last revised 2020. Blood 05/23/2025 4:08 PM CDT 05/23/2025 4:24 PM CDT Addy Tapia MD LAB BLOOD ORDERABLES Fin al Result Performing Organization Address [facility] Co de Phone Number [facility] [place] [address] * (ABNORMAL) Hemoglobin total, pulmonary artery (05/23/2025 4:08 PM CDT) Hemoglobin total, PA 8.8(L) 13.0 - 17.5 g/dL Blood 05/23/2025 4:08 PM CDT 05/23/2025 4:24 PM CDT Zev Cowart MD PhD LAB BLOOD ORDERABLES Fi nal Result Performing Organization Address [facility] Co de Phone Number [facility] [place] [address] * Potassium, whole blood (05/23/2025 4:08 PM CDT) Potassium, bld 4.5 3.3 - 4.9 mmol/L Blood 05/23/2025 4:08 PM CDT 05/23/2025 4:23 PM CDT us Bar Gamble MD LAB BLOOD ORDERABLES Final R esult Performing Organization Address [facility]/ZIP Co de Phone Number [facility] [place] [address] * (ABNORMAL) eGFR (05/23/2025 4:08 PM CDT) eGFR 33(L) >=60 mL/min/1. 73 m2 Comment: Interpretive Data Reference Interval Normal >/= 90 mL/min/1.73m2 Mildly decreased* 60 - 89 mL/min/1.73m2 Mildly to moderately decreased 45 - 59 mL/min/1.73m2 Moderately to severely decreased 30 - 44 mL/min/1.73m2 Severely decreased 15 - 29 mL/min/1.73m2 Kidney Failure < 15 mL/min/1.73m2 *Relative to young adult level Estimated glomerular filtration rate is determined by the 2020 CKD-EPI equation recommended by the National Kidney Foundation (A Unifying Approach to GFR Estimation: Recommendations of the NKF-ASK Task Force on Reassessing the Inclusion of Race in Diagnosing Kidney Disease, JASN 2020). The CKD-EPI equation should not be used for patients with unstable renal function and has not been validated in children and those over 70. Current interpretive data was last reviewed 2021. Blood 05/23/2025 4:08 PM CDT 05/23/2025 4:43 PM CDT us Addy Tapia MD LAB BLOOD ORDERABLES Fin al Result [facility] [place] [address] * (ABNORMAL) Blood gas, arterial (05/23/2025 4:08 PM CDT) [facility] pH, Art 7.43 7.35 - 7.45 PCO2, Arterial 34(L) 35 - [address] [facility] PO2, Arterial 83 83 - [address] [facility] HCO3 Art (Calculated) 23 20 - 30 mmol/L [facility] BE, art -2 mmol/L [facility] Comment: Interpretive Data No Reference Range Established Current Interpretive Data was last revised on 2017 O2 Sat Art (Measured) 97(H) 90 - 95 % [facility] Blood 05/23/2025 4:08 PM CDT 05/23/2025 4:23 PM CDT Addy Tapia MD LAB BLOOD ORDERABLES [facility] al Result [facility] [place] [address] * (ABNORMAL) Basic metabolic panel (05/23/2025 4:08 PM CDT) [facility] Sodium 136 135 - 145 mmol/L Potassium, pl 4.8 3.3 - 4.9 mmol/L [facility] Comment:Hemolyzed; Potassium value may be falsely elevated by as much as 0.3-0.5 mmol/L. Suggest redraw and reanalysis. Chloride 99 97 - 110 mmol/L [facility] CO2 23 22 - 32 mmol/L [facility] Anion gap 14 2 - 15 mmol/L [facility] BUN 67(H) 6 - 25 mg/dL [facility] Creatinine 2.23(H) 0.80 - 1.30 mg/dL [facility] Glucose 122 70 - 199 mg/dL [facility] Comment: Interpretive Data Fasting glucose >/= 126 mg/dl is diagnostic for diabetes. Fasting is defined as no caloric intake for at least 8 hours. Fasting glucose between 100 mg/dl to 125 mg/dl is diagnostic of prediabetes. In a patient with classic symptoms of hyperglycemia or hyperglycemic crisis, a random glucose >/= 200 mg/dl is diagnostic for diabetes. In the absence of unequivocal hyperglycemia, results should be confirmed by repeat testing. The classification and Diagnosis of Diabetes Diabetes Care 2021; 46: S19-S40. Current interpretive data was last revised 2022. Calcium 9.1 8.5 - 10.3 mg/dL [facility] Blood 05/23/2025 4:08 PM CDT 05/23/2025 4:43 PM CDT Addy Tapia MD LAB BLOOD ORDERABLES Fin al Result [facility] [place] [address] * POCT glucose (05/23/2025 4:04 PM CDT) Glucose, POC 127 70 - 199 mg/dL Blood 05/23/2025 4:04 PM CDT 05/23/2025 4:04 PM CDT Addy Tapia MD LAB POCT ORDERABLES - DE VICE Final Result Performing Organization Address [facility]/ZIP Co de Phone Number [facility] [place] [address] * TRANSTHORACIC ECHO (TTE) COMPLETE W DOPPLER/CF W CONTRAST (05/23/2025 3:20 PM CDT) EF Mod BP 81 % CONS SCIMAGE Anatomical Region Laterality Modality Ultrasound 05/23/2025 1:34 PM CDT Narrative 05/23/2025 3:27 PM CDT [facility] Cardiac Diagnostic [place] [address] Transthoracic Echocardiographic Report Patient Name: GOSIA ZUNIGA William : 1965 (60y ) Gender: M Study Date: 05/23/2025 01:34:35 PM Ht(Inch): 72 Wt(Lb): 166.89 BSA: 1.96 Pack Mule Worker: Teagan Henderson [facility] Location: [id number] Order Provider: ADDY TAPIA Heart Rate: 105 BMI: 22.63 BP: 152 / 59 Ref Provider: ADDY TAPIA PROCEDURES: Echocardiographic Report: Transthoracic complete echo with contrast, 2D, spectral and tissue Doppler, color flow Doppler, M-mode. Contrast: Contrast Enhancement was Employed: Due to suboptimal image quality with inadequate visualization of at least 2 of 16 LV wall segments in any view after initial imaging. Perflutren contrast was administered using the volume necessary to obtain adequate images. 0.4 ml Optison Administered, (2.6 ml wasted). Technically difficult study due to: Poor acoustic windows. INDICATIONS: heart failure s/p tx. CONCLUSIONS: 1. Normal left ventricular size based on volume index. Normal LV wall thickness. There is hyperdynamic left ventricular systolic function. The Ejection Fraction (Perkins's) is measured at 81 %. 2. Normal right ventricular size. TV S'= 0.07 m/s (mildly decreased systolic function). 3. The estimated pulmonary artery systolic pressure is 30.0 mmHg. No pulm HTN. 4. Small to moderate pericardial effusion. No echocardiographic evidence to suggest cardiac tamponade. 5. No subcostal window to assess IVC do to a wound VAC. ATTESTATION: I have personally reviewed and interpreted this study without fellow or resident. - DISCLAIMER: The study images and the final report will be retained in the patient chart by the [facility] for the legally required time period. This chart constitutes the legal record of any testing performed. FINDINGS: Left Ventricle: Normal left ventricular size based on volume index. Normal LV wall thickness. There is hyperdynamic left ventricular systolic function. The Ejection Fraction (Perkins's) is measured at 81 %. Right Ventricle: Normal right ventricular size. TV S'= 0.07 m/s (mildly decreased systolic function). Left Atrium: The left atrium is normal in size. Right Atrium: The right atrium is normal in size. Mitral Valve: Normal mitral valve structure. No mitral regurgitation. Aortic Valve: Normal trileaflet aortic valve. No aortic regurgitation. The mean transaortic gradient is 4 mmHg. The aortic valve area by the continuity equation (using VTI) is 4.07 cm2. Aortic valve dimensionless index is 1.12. Tricuspid Valve: Normal tricuspid valve structure. Mild tricuspid regurgitation. The estimated pulmonary artery systolic pressure is 30.0 mmHg. No pulm HTN. Pulmonic Valve: Normal pulmonic valve structure. Mild pulmonic regurgitation. Pericardium: Small to moderate pericardial effusion. No echocardiographic evidence to suggest cardiac tamponade. Aorta: Normal aortic root. Normal aortic root size when indexed. The ascending aorta is normal in size when indexed. IVC: No subcostal window to assess IVC do to a wound VAC. MEASUREMENTS: 2D/MM Value Range Doppler Value Range LVIDd 2D 4.47 cm [ 4.20 - 5.80 ] AV Peak Nathan 1.3 m/s [ 1.0 - 1.7 ] LVIDs 2D 2.49 cm [ 2.50 - 4.00 ] AV Peak PG 6.76 mmHg IVSd 2D 0.70 cm [ 0.60 - 1.00 ] AV Mean PG 4 mmHg LVPWd 2D 0.66 cm [ 0.60 - 1.00 ] AV VTI 17.2 cm LV Thickness Ratio 1.1 LVOT Peak Nathan 1.3 m/s [ 0.7 - 1.1 ] LV FS 2D 44.30 % [ 25.00 - 43.00 ] LVOT Peak PG 6.76 mmHg LV Mass 2D 94.01 g LVOT Mean PG 5 mmHg LV Mass Index 2D 47.96 g/m2 LVOT VTI 19.3 cm RWT 0.30 LVOT Diam 2.15 cm EDV Mod BP 115.60 ml [ 62.00 - 150.00 ] BENY VTI 4.07 cm2 LV EDV Index 58.98 ml/m2 LVOT/AV VTI 1.12 - Dimensionless index (DVI) ESV Mod BP 22.12 ml [ 21.00 - 61.00 ] MV E Peak Nathan 1.3 m/s [ 0.6 - 1.3 ] EF Mod BP 81 % [ 52 - 72 ] MV A Peak Nathan 0.4 m/s [ 1.0 - 1.2 ] LA Length 4C 6.71 cm MV E/A 3.3 ratio [ 0.8 - 1.5 ] LA Length 2C 7.62 cm MV Decel Time 161.15 msec [ 104.00 - 258.00 ] LA Volume BP 41.08 ml RV S` 6.54 cm/sec LA Volume Index 20.96 ml/m2 [ 16.00 - 34.00 ] TR Peak Nathan 2.5 m/s [ 1.0 - 2.8 ] RV Base Dimen 2D 3.9 cm [ 2.5 - 4.2 ] TR Peak PG 25.0 mmHg RV ES Area 8.09 cm2 [ 3.00 - 15.00 ] PV Peak Nathan 1.0 m/s [ 0.4 - 0.8 ] TAPSE 0.40 cm [ 1.71 - 5.00 ] PV Peak PG 4.00 mmHg RA Volume 35.65 ml RA Volume Index 18.19 ml/m2 AoR Diam 2D 3.07 cm [ 3.10 - 3.70 ] Ao Root Index 1.57 cm/m2 [ 1.00 - 2.00 ] Asc Ao Diam 2D 2.60 cm Asc Ao Index 1.33 cm/m2 Electronically Signed By: Dmitry Araya M.D. 05/23/2025 3:27:01 PM CDT Procedure Note Dmitry Araya MD PhD - 05/23/2025 [facility] [place] [address] Transthoracic Echocardiographic Report Patient Name: GOSIA ZUNIGAWilliam : 1965 (60y ) Gender: M Study Date: 05/23/2025 01:34:35 PM Ht(Inch): 72 Wt(Lb): 166.89 BSA: 1.96 Pack Mule Worker: Teagan Henderson [facility] Location: [id number] Order Provider:ADDY TAPIA Heart Rate: 105 BMI: 22.63 BP: 152 / 59 Ref Provider: ADDY TAPIA PROCEDURES: Echocardiographic Report: Transthoracic complete echo with contrast, 2D,spectral and tissue Doppler, color flow Doppler, M-mode. Contrast: Contrast Enhancement was Employed: Due to suboptimal imagequality with inadequate visualization of at least 2 of 16 LV wall segments in any viewafter initial imaging. Perflutren contrast was administered using the volume necessaryto obtain adequate images. 0.4 ml Optison Administered, (2.6 ml wasted). Technically difficult study due to: Poor acoustic windows. INDICATIONS: heart failure s/p tx. CONCLUSIONS: 1. Normal left ventricular size based on volume index. Normal LV wallthickness. There is hyperdynamic left ventricular systolic function. The Ejection Fraction(Perkins's) is measured at 81 %. 2. Normal right ventricular size. TV S'= 0.07 m/s (mildly decreasedsystolic function). 3. The estimated pulmonary artery systolic pressure is 30.0 mmHg. No pulmHTN. 4. Small to moderate pericardial effusion. No echocardiographic evidenceto suggest cardiac tamponade. 5. No subcostal window to assess IVC do to a wound VAC. ATTESTATION: I have personally reviewed and interpreted this study without fellow orresident. - DISCLAIMER: The study images and the final report will be retained in the patientchart by the Echo Laboratory for the legally required time period. This chart constitutesthe legal record of any testing performed. FINDINGS: Left Ventricle: Normal left ventricular size based on volume index. NormalLV wall thickness. There is hyperdynamic left ventricular systolic function. TheEjection Fraction (Perkins's) is measured at 81 %. Right Ventricle: Normal right ventricular size. TV S'= 0.07 m/s (mildlydecreased systolic function). Left Atrium: The left atrium is normal in size. Right Atrium: The right atrium is normal in size. Mitral Valve: Normal mitral valve structure. No mitral regurgitation. Aortic Valve: Normal trileaflet aortic valve. No aortic regurgitation. Themean transaortic gradient is 4 mmHg. The aortic valve area by the continuityequation (using VTI) is 4.07 cm2. Aortic valve dimensionless index is 1.12. Tricuspid Valve: Normal tricuspid valve structure. Mild tricuspidregurgitation. The estimated pulmonary artery systolic pressure is 30.0 mmHg. No pulm HTN. Pulmonic Valve: Normal pulmonic valve structure. Mild pulmonicregurgitation. Pericardium: Small to moderate pericardial effusion. No echocardiographicevidence to suggest cardiac tamponade. Aorta: Normal aortic root. Normal aortic root size when indexed. Theascending aorta is normal in size when indexed. IVC: No subcostal window to assess IVC do to a wound VAC. MEASUREMENTS: 2D/MM Value Range DopplerValue Range LVIDd 2D 4.47 cm [ 4.20 - 5.80 ] AV Peak Vel1.3 m/s [ 1.0 - 1.7 ] LVIDs 2D 2.49 cm [ 2.50 - 4.00 ] AV Peak PG6.76 mmHg IVSd 2D 0.70 cm [ 0.60 - 1.00 ] AV Mean PG4 mmHg LVPWd 2D 0.66 cm [ 0.60 - 1.00 ] AV VTI17.2 cm LV Thickness Ratio 1.1 LVOT Peak Vel1.3 m/s [ 0.7 - 1.1 ] LV FS 2D 44.30 % [ 25.00 - 43.00 ] LVOT Peak PG6.76 mmHg LV Mass 2D 94.01 g LVOT Mean PG5 mmHg LV Mass Index 2D 47.96 g/m2 LVOT VTI19.3 cm RWT 0.30 LVOT Diam2.15 cm EDV Mod BP 115.60 ml [ 62.00 - 150.00 ] BENY VTI4.07 cm2 LV EDV Index 58.98 ml/m2 LVOT/AV VTI1.12 - Dimensionless index (DVI) ESV Mod BP 22.12 ml [ 21.00 - 61.00 ] MV E Peak Vel1.3 m/s [ 0.6 - 1.3 ] EF Mod BP 81 % [ 52 - 72 ] MV A Peak Vel0.4 m/s [ 1.0 - 1.2 ] LA Length 4C 6.71 cm MV E/A3.3 ratio [ 0.8 - 1.5 ] LA Length 2C 7.62 cm MV Decel Zhtx708.15 msec [ 104.00 - 258.00 ] LA Volume BP 41.08 ml RV S`6.54 cm/sec LA Volume Index 20.96 ml/m2 [ 16.00 - 34.00 ] TR Peak Vel2.5 m/s [ 1.0 - 2.8 ] RV Base Dimen 2D 3.9 cm [ 2.5 - 4.2 ] TR Peak PG25.0 mmHg RV ES Area 8.09 cm2 [ 3.00 - 15.00 ] PV Peak Vel1.0 m/s [ 0.4 - 0.8 ] TAPSE 0.40 cm [ 1.71 - 5.00 ] PV Peak PG4.00 mmHg RA Gdbayu23.65 ml RA Volume Index18.19 ml/m2 AoR Diam 2D 3.07 cm [ 3.10 - 3.70 ] Ao Root Index 1.57 cm/m2 [ 1.00 - 2.00 ] Asc Ao Diam 2D2.60 cm Asc Ao Index1.33 cm/m2 Electronically Signed By: Dmitry Araya M.D. 05/23/2025 3:27:01 PM CDT Addy Jamar Tapia MD CV ECHO PROCEDURES Final Result * POCT glucose (05/23/2025 3:03 PM CDT) [facility] Signature Glucose, POC 87 70 - 199 mg/dL Blood 05/23/2025 3:03 PM CDT 05/23/2025 3:03 PM CDT Addy Tapia MD LAB POCT ORDERABLES - DE VICE Final Result Performing Organization Address [facility] Phone Number [facility] [place] [address] * POCT glucose (05/23/2025 2:17 PM CDT) Glucose, POC 89 70 - 199 mg/dL Blood 05/23/2025 2:17 PM CDT 05/23/2025 2:17 PM CDT Addy Tapia MD LAB POCT ORDERABLES - DE VICE Final Result Performing Organization Address [facility] Phone Number [facility] [place] [address] * POCT glucose (05/23/2025 1:04 PM CDT) Glucose, POC 149 70 - 199 mg/dL Blood 05/23/2025 1:04 PM CDT 05/23/2025 1:04 PM CDT Addy Tapia MD LAB POCT ORDERABLES - DE VICE Final Result Performing Organization Address [facility] [place] [address] * Oxyhemoglobin, pulmonary artery (05/23/2025 12:11 PM CDT) Oxyhemoglobin, PA 66.1 % Comment: Interpretive Data No reference range established. Current interpretive data was last revised 2020. Blood 05/23/2025 12:1 1 PM CDT 05/23/2025 12:18 PM CDT Addy Tapia MD LAB BLOOD ORDERABLES Fin al Result Performing Organization Address [facility] Co de Phone Number [facility] [place] [address] * (ABNORMAL) Hemoglobin total, pulmonary artery (05/23/2025 12:11 PM CDT) Hemoglobin total, PA 8.6(L) 13.0 - 17.5 g/dL Blood 05/23/2025 12:1 1 PM CDT 05/23/2025 12:18 PM CDT Zev Cowart MD PhD LAB BLOOD ORDERABLES Fi nal Result Performing Organization Address [facility] Co de Phone Number [facility] [place] [address] * (ABNORMAL) Hemoglobin total, pulmonary artery (05/23/2025 12:11 PM CDT) Hemoglobin total, PA 8.8(L) 13.0 - 17.5 g/dL Blood 05/23/2025 12:1 1 PM CDT 05/23/2025 12:18 PM CDT Bar Gamble MD LAB BLOOD ORDERABLES Final R esult Performing Organization Address [facility] Co de Phone Number [facility] [place] [address] * Potassium, whole blood (05/23/2025 12:11 PM CDT) Potassium, bld 4.5 3.3 - 4.9 mmol/L Blood 05/23/2025 12:1 1 PM CDT 05/23/2025 12:18 PM CDT Bar Gamble MD LAB BLOOD ORDERABLES Final R esult Performing Organization Address [facility]/ZIP Co de Phone Number [facility] [place] [address] * (ABNORMAL) Blood gas, arterial (05/23/2025 12:11 PM CDT) pH, Art 7.42 7.35 - 7.45 PCO2, Arterial 35 35 - [address] [facility] PO2, Arterial 78(L) 83 - [address] [facility] HCO3 Art (Calculated) 23 20 - 30 mmol/L [facility] BE, art -1 mmol/L [facility] Comment: Interpretive Data No Reference Range Established Current Interpretive Data was last revised on 2017 O2 Sat Art (Measured) 96(H) 90 - 95 % [facility] Blood 05/23/2025 12:1 1 PM CDT 05/23/2025 12:18 PM CDT Addy Tapia MD LAB BLOOD ORDERABLES Fin al Result Performing Organization Address [facility]/ZIP Co de Phone Number [facility] [place] [address] * POCT glucose (05/23/2025 12:05 PM CDT) Glucose, POC 191 70 - 199 mg/dL Blood 05/23/2025 12:0 5 PM CDT 05/23/2025 12:05 PM CDT Addy Tapia MD LAB POCT ORDERABLES - DE VICE Final Result Performing Organization Address [facility] Co de Phone Number [facility] [place] [address] * (ABNORMAL) POCT glucose (05/23/2025 11:07 AM CDT) Glucose, POC 234(H) 70 - 199 mg/dL Blood 05/23/2025 11:0 7 AM CDT 05/23/2025 11:07 AM CDT us Addy Tapia MD LAB POCT ORDERABLES - DE VICE Final Result [facility] [place] [address] * Critical Care (05/23/2025 10:21 AM CDT) Narrative Stephanie Hood MD - 05/23/2025 10:21 AM CDT Stephanie Hood MD 05/23/2025 10:25 AM Critical Care Performed by: Stephanie Hood MD Authorized by: Stephanie Hood MD CRITICAL CARE: Team: 83 CTICU Shift: AM Level of Billing: Critical Care My time spent with this patient was 60 minutes: Critical Provider Statement: I have seen and examined the patient on this day of service. I have reviewed and confirmed the history, physical exam, laboratory and radiologic data as documented in the signed ICU note. I have reviewed and discussed my treatment plan with the ICU team and other medical/senior safety management consultant staff, making frequent assessments and decisions regarding this patient's complex medical care. Critical Care time was exclusive of time spent performing separately billed procedures, treating other patients, and teaching. This time was in addition to and separate from critical care provided by other practitioners in my group on this day of service. Critical Care was necessary to treat or prevent imminent or life-threatening deterioration of the following conditions: Acute pain/acute postoperative pain Vasoplegic shock Right ventricular dysfunction Acute respiratory insufficiency Acute kidney injury This time was spent by me doing the following: Acute pain control Cardiac pacing, Initiation/active titration of inotropic medications and Initiation/active titration of vasoactive medications Incentive spirometry, pulmonary toilet Active diuresis I spent time reviewing and interpreting data from bedside monitors, laboratory results, and imaging, I spent time discussing the management of this critically ill patient with consultants and the medical staff and I spent time documenting in the medical record us Stephanie Hood MD IN CLINIC/BEDSIDE ORDERA BLES Final Result * (ABNORMAL) POCT glucose (05/23/2025 10:00 AM CDT) Glucose, POC 265(H) 70 - 199 mg/dL Blood 05/23/2025 10:0 0 AM CDT 05/23/2025 10:00 AM CDT Addy Tapia MD LAB POCT ORDERABLES - DE VICE Final Result Performing Organization Address [facility] Phone Number [facility] [place] [address] * POCT glucose (05/23/2025 8:56 AM CDT) Glucose, POC 186 70 - 199 mg/dL Blood 05/23/2025 8:56 AM CDT 05/23/2025 8:56 AM CDT Addy Tapia MD LAB POCT ORDERABLES - DE VICE Final Result Performing Organization Address [facility] Phone Number [facility] [place] [address] * Oxyhemoglobin, pulmonary artery (05/23/2025 7:58 AM CDT) Pathologist [facility] Oxyhemoglobin, PA 70.8 % Comment: Interpretive Data No reference range established. Current interpretive data was last revised 2020. Blood 05/23/2025 7:58 AM CDT 05/23/2025 8:17 AM CDT Addy Tapia MD LAB BLOOD ORDERABLES Fin al Result Performing Organization Address [facility] Co de Phone Number [facility] [place] [address] * (ABNORMAL) Hemoglobin total, pulmonary artery (05/23/2025 7:58 AM CDT) Hemoglobin total, PA 8.1(L) 13.0 - 17.5 g/dL Blood 05/23/2025 7:58 AM CDT 05/23/2025 8:17 AM CDT Zev Cowart MD PhD LAB BLOOD ORDERABLES Fi nal Result Performing Organization Address [facility] Co de Phone Number [facility] [place] [address] * Potassium, whole blood (05/23/2025 7:58 AM CDT) Potassium, bld 4.4 3.3 - 4.9 mmol/L Blood 05/23/2025 7:58 AM CDT 05/23/2025 8:17 AM CDT Bar Gamble MD LAB BLOOD ORDERABLES Final R esult Performing Organization Address [facility] de Phone Number [facility] [place] [address] * (ABNORMAL) Blood gas, arterial (05/23/2025 7:58 AM CDT) pH, Art 7.40 7.35 - 7.45 PCO2, Arterial 38 35 - [address] [facility] PO2, Arterial 110(H) 83 - [address] [facility] HCO3 Art (Calculated) 24 20 - 30 mmol/L [facility] BE, art -1 mmol/L [facility] Comment: Interpretive Data No Reference Range Established Current Interpretive Data was last revised on 2017 O2 Sat Art (Measured) 99(H) 90 - 95 % [facility] Blood 05/23/2025 7:58 AM CDT 05/23/2025 8:17 AM CDT Addy Tapia MD LAB BLOOD ORDERABLES Fin al Result Performing Organization Address [facility] Co de Phone Number [facility] [place] [address] * POCT glucose (05/23/2025 7:57 AM CDT) Glucose, POC 142 70 - 199 mg/dL Blood 05/23/2025 7:57 AM CDT 05/23/2025 7:57 AM CDT Addy Tapia MD LAB POCT ORDERABLES - DE VICE Final Result Performing Organization Address [facility] Co az Phone Number [facility] [place] [address] * POCT glucose (05/23/2025 7:01 AM CDT) Glucose, POC 136 70 - 199 mg/dL Blood 05/23/2025 7:01 AM CDT 05/23/2025 7:01 AM CDT Addy Tapia MD LAB POCT ORDERABLES - DE VICE Final Result Performing Organization Address [facility] [place] [address] * Tacrolimus level trough (05/23/2025 6:42 AM CDT) Tacrolimus trough 5.8 ng/mL Comment: Interpretive Data Testing performed by liquid chromatography-tandem mass spectrometry. Therapeutic concentrations vary depending on type of transplanted organ and time elapsed since transplant. Typical trough concentrations range from 5-15 ng/mL. This test was developed and its performance characteristics determined by the [facility] consistent with CLIA requirements. This test has not been cleared or approved by the [place] Food and Drug administration. Current interpretive data last reviewed 2020. Blood 05/23/2025 6:42 AM CDT 05/23/2025 6:53 AM CDT Zev Cowart MD PhD LAB BLOOD ORDERABLES Fi nal Result Performing Organization Address [facility]/[place] [address] * POCT glucose (05/23/2025 5:56 AM CDT) Glucose, POC 114 70 - 199 mg/dL Blood 05/23/2025 5:56 AM CDT 05/23/2025 5:56 AM CDT Addy Tapia MD LAB POCT ORDERABLES - DE VICE Final Result Performing Organization Address [facility] [place] [address] * POCT glucose (05/23/2025 4:13 AM CDT) Glucose, POC 130 70 - 199 mg/dL Blood 05/23/2025 4:13 AM CDT 05/23/2025 4:13 AM CDT us Addy Tapia MD LAB POCT ORDERABLES - DE VICE Final Result Performing Organization Address [facility] Co de Phone Number [facility] [place] [address] * POCT glucose (05/23/2025 2:51 AM CDT) Glucose, POC 136 70 - 199 mg/dL Blood 05/23/2025 2:51 AM CDT 05/23/2025 2:51 AM CDT us Addy Tapia MD LAB POCT ORDERABLES - DE VICE Final Result Performing Organization Address [facility] Co de Phone Number [facility] [place] [address] * POCT glucose (05/23/2025 1:57 AM CDT) Glucose, POC 123 70 - 199 mg/dL Blood 05/23/2025 1:57 AM CDT 05/23/2025 1:57 AM CDT Addy Tapia MD LAB POCT ORDERABLES - DE VICE Final Result Performing Organization Address [facility] Co de Phone Number [facility] [place] [address] * POCT glucose (05/23/2025 1:14 AM CDT) Glucose, POC 97 70 - 199 mg/dL Blood 05/23/2025 1:14 AM CDT 05/23/2025 1:14 AM CDT Addy Tapia MD LAB POCT ORDERABLES - DE VICE Final Result Performing Organization Address [facility] Co de Phone Number [facility] [place] [address] * POCT glucose (05/23/2025 12:15 AM CDT) Glucose, POC 137 70 - 199 mg/dL Blood 05/23/2025 12:1 5 AM CDT 05/23/2025 12:15 AM CDT Addy Tapia MD LAB POCT ORDERABLES - DE VICE Final Result Performing Organization Address [facility] de Phone Number [facility] [place] [address] * Oxyhemoglobin, pulmonary artery (05/23/2025 12:11 AM CDT) Oxyhemoglobin, PA 67.9 % Comment: Interpretive Data No reference range established. Current interpretive data was last revised 2020. Blood 05/23/2025 12:1 1 AM CDT 05/23/2025 1:07 AM CDT Result [facility] Addy Tapia MD LAB BLOOD ORDERABLES Fin al Result Performing Organization Address [facility] de Phone Number [facility] [place] [address] * (ABNORMAL) Hemoglobin total, pulmonary artery (05/23/2025 12:11 AM CDT) Hemoglobin total, PA 7.5(L) 13.0 - 17.5 g/dL Blood 05/23/2025 12:1 1 AM CDT 05/23/2025 1:07 AM CDT Addy Tapia MD LAB BLOOD ORDERABLES Fin al Result Performing Organization Address [facility] de Phone Number [facility] [place] [address] * Potassium, whole blood (05/23/2025 12:11 AM CDT) Pathologist [facility] Potassium, bld 4.2 3.3 - 4.9 mmol/L Blood 05/23/2025 12:1 1 AM CDT 05/23/2025 1:07 AM CDT Zev Cowart MD PhD LAB BLOOD ORDERABLES Fi nal Result Performing Organization Address [facility] de Phone Number [facility] [place] [address] * (ABNORMAL) eGFR (05/23/2025 12:11 AM CDT) eGFR 35(L) >=60 mL/min/1. 73 m2 Comment: Interpretive Data Reference Interval Normal >/= 90 mL/min/1.73m2 Mildly decreased* 60 - 89 mL/min/1.73m2 Mildly to moderately decreased 45 - 59 mL/min/1.73m2 Moderately to severely decreased 30 - 44 mL/min/1.73m2 Severely decreased 15 - 29 mL/min/1.73m2 Kidney Failure < 15 mL/min/1.73m2 *Relative to young adult level Estimated glomerular filtration rate is determined by the 2020 CKD-EPI equation recommended by the National Kid[employer] (A Unifying Approach to GFR Estimation: Recommendations of the NKF-ASK Task Force on Reassessing the Inclusion of Race in Diagnosing Kidney Disease, JASN 2020). The CKD-EPI equation should not be used for patients with unstable renal function and has not been validated in children and those over 70. Current interpretive data was last reviewed 2021. Blood 05/23/2025 12:1 1 AM CDT 05/23/2025 1:27 AM CDT Bar Gamble MD LAB BLOOD ORDERABLES Final R esult [facility] [place] [address] * (ABNORMAL) CBC without differential (05/23/2025 12:11 AM CDT) WBC 18.29(H) 3.80 - 9.90 K/cumm Hgb 7.9(L) 13.0 - 17.5 g/dL [facility] Hct 23.8(L) 38.9 - 50.3 % [facility] Plt 129(L) 150 - 400 K/cumm [facility] MPV 11.9 9.1 - 12.[address] [facility] RBC 2.89(L) 4.30 - 5.80 M/cumm [facility] MCV 82.4 81.3 - 96.[address] [facility] MCH 27.3 27.1 - 33.[address] [facility] MCHC 33.2 32.3 - 35.7 g/dL [facility] RDW CV 15.2(H) 11.1 - 14.9 % [facility] RDW SD 46.2 35.7 - 48.[address] [facility] NRBC abs 0.00 0.00 - 0.01 K/cumm [facility] Blood 05/23/2025 12:1 1 AM CDT 05/23/2025 1:28 AM CDT Zev Cowart MD PhD LAB BLOOD ORDERABLES Fi nal Result Performing Organization Address City/[facility] Co de Phone Number [facility] [place] [address] * (ABNORMAL) Phosphorus (05/23/2025 12:11 AM CDT) Phosphorus, pl 5.6(H) 2.3 - 4.5 mg/dL Blood 05/23/2025 12:1 1 AM CDT 05/23/2025 1:27 AM CDT Zev Cowart MD PhD LAB BLOOD ORDERABLES Fi nal Result Performing Organization Address [facility] de Phone Number [facility] [place] [address] * (ABNORMAL) Magnesium (05/23/2025 12:11 AM CDT) Magnesium 2.6(H) 1.4 - 2.5 mg/dL Blood 05/23/2025 12:1 1 AM CDT 05/23/2025 1:27 AM CDT Zev Cowart MD PhD LAB BLOOD ORDERABLES Fi nal Result Performing Organization Address City/[facility] de Phone Number [facility] [place] [address] * (ABNORMAL) Blood gas, arterial (05/23/2025 12:11 AM CDT) pH, Art 7.41 7.35 - 7.45 PCO2, Arterial 38 35 - [address] [facility] PO2, Arterial 85 83 - [address] [facility] HCO3 Art (Calculated) 25 20 - 30 mmol/L [facility] BE, art 0 mmol/L [facility] Comment: Interpretive Data No Reference Range Established Current Interpretive Data was last revised on 2017 O2 Sat Art (Measured) 97(H) 90 - 95 % [facility] Blood 05/23/2025 12:1 1 AM CDT 05/23/2025 1:07 AM CDT us Addy Tapia MD LAB BLOOD ORDERABLES Fin al Result Performing Organization Address [facility] Co de Phone Number [facility] [place] [address] * (ABNORMAL) Hepatic function panel (05/23/2025 12:11 AM CDT) Bilirubin, total 0.8 0.1 - 1.2 mg/dL Bilirubin, direct 0.5(H) 0.1 - 0.3 mg/dL [facility] Protein, pl 5.9(L) 6.5 - 8.5 g/dL [facility] Albumin 3.8 3.5 - 5.0 g/dL [facility] Alk phos 137(H) 40 - 130 Units/L [facility] ALT 22 7 - 55 Units/L [facility] AST 56(H) 10 - 50 Units/L [facility] Blood 05/23/2025 12:1 1 AM CDT 05/23/2025 1:27 AM CDT us Bar Gamble MD LAB BLOOD ORDERABLES Final R esult Performing Organization Address [facility]/ZIP Co de Phone Number [facility] [place] [address] * (ABNORMAL) Basic metabolic panel (05/23/2025 12:11 AM CDT) Sodium 135 135 - 145 mmol/L Potassium, pl 4.3 3.3 - 4.9 mmol/L [facility] Chloride 99 97 - 110 mmol/L [facility] CO2 34(H) 22 - 32 mmol/L [facility] Anion gap 2 2 - 15 mmol/L [facility] BUN 54(H) 6 - 25 mg/dL [facility] Creatinine 2.12(H) 0.80 - 1.30 mg/dL [facility] Glucose 130 70 - 199 mg/dL [facility] Comment: Interpretive Data Fasting glucose >/= 126 mg/dl is diagnostic for diabetes. Fasting is defined as no caloric intake for at least 8 hours. Fasting glucose between 100 mg/dl to 125 mg/dl is diagnostic of prediabetes. In a patient with classic symptoms of hyperglycemia or hyperglycemic crisis, a random glucose >/= 200 mg/dl is diagnostic for diabetes. In the absence of unequivocal hyperglycemia, results should be confirmed by repeat testing. The classification and Diagnosis of Diabetes Diabetes Care 2021; 46: S19-S40. Current interpretive data was last revised 2022. Calcium 9.2 8.5 - 10.3 mg/dL [facility] Blood 05/23/2025 12:1 1 AM CDT 05/23/2025 1:27 AM CDT us Bar Gamble MD LAB BLOOD ORDERABLES Final R esult Performing Organization Address City/[facility]/ZIP Co de Phone Number [facility] [place] [address] * POCT glucose (05/22/2025 11:10 PM CDT) [facility] Signature Glucose, POC 174 70 - 199 mg/dL Blood 05/22/2025 11:1 0 PM CDT 05/22/2025 11:10 PM CDT Addy Tapia MD LAB POCT ORDERABLES - DE VICE Final Result Performing Organization Address [facility]/ZIP Co de Phone Number [facility] [place] [address] * (ABNORMAL) POCT glucose (05/22/2025 10:08 PM CDT) Glucose, POC 220(H) 70 - 199 mg/dL Blood 05/22/2025 10:0 8 PM CDT 05/22/2025 10:08 PM CDT Addy Tapia MD LAB POCT ORDERABLES - DE VICE Final Result Performing Organization Address [facility] Phone Number [facility] [place] [address] * (ABNORMAL) POCT glucose (05/22/2025 9:12 PM CDT) Glucose, POC 208(H) 70 - 199 mg/dL Blood 05/22/2025 9:12 PM CDT 05/22/2025 9:12 PM CDT Addy Tapia MD LAB POCT ORDERABLES - DE VICE Final Result Performing Organization Address [facility] Phone Number [facility] [place] [address] * XR Chest 1 View (05/22/2025 8:59 PM CDT) Anatomical Region Laterality Modality Body, Chest N/A Computed Radiogr aphy 05/23/2025 10:0 9 AM CDT Impressions 05/23/2025 10:24 AM CDT The current study is compared with the prior radiograph dated 05/22/2025 at 5:04 AM A right internal jugular vein approach [place] catheter is in place, tip overlies the main pulmonary artery. A right internal jugular catheter is in place, tip overlies the superior vena cava. Mediastinal drains in place. Sternal plates. Ongoing bilateral pleural effusions and associated bibasilar atelectasis with interval increase in size of small right-sided effusion. No pneumothorax. Cardiomediastinal silhouette unchanged. Dictated by: Shane Pena M.D. The radiology attending physician has personally reviewed this study, and had reviewed and/or edited this written report and agrees with it. Electronically signed by: Jessica Jackson M.D. Narrative 05/23/2025 10:24 AM CDT EXAMINATION: 1 view chest radiograph Procedure Note Jessica Jackson MD - 05/23/2025 EXAMINATION: 1 view chest radiograph IMPRESSION: The current study is compared with the prior radiograph dated 05/22/2025 at 5:04 AM A right internal jugular vein approach [place] catheter is in place, tip overlies the main pulmonary artery. A right internal jugular catheter is in place, tip overlies the superior vena cava. Mediastinal drains in place. Sternal plates. Ongoing bilateral pleural effusions and associated bibasilar atelectasis with interval increase in size of small right-sided effusion. No pneumothorax. Cardiomediastinal silhouette unchanged. Dictated by: Shane Pena M.D. The radiology attending physician has personally reviewed this study, and had reviewed and/or edited this written report and agrees with it. Electronically signed by: Jessica Jackson M.D. us Addy Tapia MD IMG XR PROCEDURES Final Result * POCT glucose (05/22/2025 8:05 PM CDT) Glucose, POC 176 70 - 199 mg/dL Blood 05/22/2025 8:05 PM CDT 05/22/2025 8:05 PM CDT us Addy Tapia MD LAB POCT ORDERABLES - DE VICE Final Result [facility] [place] [address] * (ABNORMAL) POCT glucose (05/22/2025 7:14 PM CDT) Glucose, POC 231(H) 70 - 199 mg/dL Blood 05/22/2025 7:14 PM CDT 05/22/2025 7:14 PM CDT Addy Tapia MD LAB POCT ORDERABLES - DE VICE Final Result Performing Organization Address [facility] Phone Number [facility] [place] [address] * (ABNORMAL) POCT glucose (05/22/2025 6:25 PM CDT) Glucose, POC 222(H) 70 - 199 mg/dL Blood 05/22/2025 6:25 PM CDT 05/22/2025 6:25 PM CDT Addy Tapia MD LAB POCT ORDERABLES - DE VICE Final Result Performing Organization Address [facility] Co az Phone Number [facility] [place] [address] * POCT glucose (05/22/2025 5:17 PM CDT) Glucose, POC 121 70 - 199 mg/dL Blood 05/22/2025 5:17 PM CDT 05/22/2025 5:17 PM CDT Addy Tapia MD LAB POCT ORDERABLES - DE VICE Final Result Performing Organization Address [facility] [place] [address] * POCT glucose (05/22/2025 4:24 PM CDT) Glucose, POC 185 70 - 199 mg/dL Blood 05/22/2025 4:24 PM CDT 05/22/2025 4:24 PM CDT us Addy Tapia MD LAB POCT ORDERABLES - DE VICE Final Result Performing Organization Address City/[facility]/ZIP Co de Phone Number [facility] [place] [address] * (ABNORMAL) Hemoglobin total, pulmonary artery (05/22/2025 4:14 PM CDT) Hemoglobin total, PA 8.2(L) 13.0 - 17.5 g/dL Blood 05/22/2025 4:14 PM CDT 05/22/2025 4:35 PM CDT us Bar Gamble MD LAB BLOOD ORDERABLES Final R esult Performing Organization Address [facility] Co de Phone Number [facility] [place] [address] * (ABNORMAL) eGFR (05/22/2025 4:14 PM CDT) eGFR 41(L) >=60 mL/min/1. 73 m2 Comment: Interpretive Data Reference Interval Normal >/= 90 mL/min/1.73m2 Mildly decreased* 60 - 89 mL/min/1.73m2 Mildly to moderately decreased 45 - 59 mL/min/1.73m2 Moderately to severely decreased 30 - 44 mL/min/1.73m2 Severely decreased 15 - 29 mL/min/1.73m2 Kidney Failure < 15 mL/min/1.73m2 *Relative to young adult level Estimated glomerular filtration rate is determined by the 2020 CKD-EPI equation recommended by the National Kidney Foundation (A Unifying Approach to GFR Estimation: Recommendations of the NKF-ASK Task Force on Reassessing the Inclusion of Race in Diagnosing Kidney Disease, JASN 2020). The CKD-EPI equation should not be used for patients with unstable renal function and has not been validated in children and those over 70. Current interpretive data was last reviewed 2021. Blood 05/22/2025 4:14 PM CDT 05/22/2025 4:43 PM CDT us Bar Gamble MD LAB BLOOD ORDERABLES Final R esult Performing Organization Address City/[facility] Co de Phone Number [facility] [place] [address] * (ABNORMAL) Hepatitis C genotype Blood (05/22/2025 4:14 PM CDT) Pathologist [facility] HCV genotype 1a(A) Undetected Comment: ADDITIONAL INFORMATION This test was performed using the [employer] RealTime HCV Genotype II assay ([employer] [place], [place]). Test Performed by: [place] [address] Industrial Cook: Milagros Henriquez Ph.D.; CLIA# [id number] Blood 05/22/2025 4:14 PM CDT 05/22/2025 4:47 PM CDT us Lindsay Arciniega MD LAB MICROBIOLOGY - GENERAL ORDER LINH Final Result Performing Organization Address [facility] de Phone Number [facility] [place] [address] * (ABNORMAL) Basic metabolic panel (05/22/2025 4:14 PM CDT) [facility] Sodium 133(L) 135 - 145 mmol/L Potassium, pl 4.2 3.3 - 4.9 mmol/L [facility] Chloride 97 97 - 110 mmol/L [facility] CO2 26 22 - 32 mmol/L [facility] Anion gap 10 2 - 15 mmol/L [facility] BUN 48(H) 6 - 25 mg/dL [facility] Creatinine 1.85(H) 0.80 - 1.30 mg/dL [facility] Glucose 176 70 - 199 mg/dL [facility] Comment: Interpretive Data Fasting glucose >/= 126 mg/dl is diagnostic for diabetes. Fasting is defined as no caloric intake for at least 8 hours. Fasting glucose between 100 mg/dl to 125 mg/dl is diagnostic of prediabetes. In a patient with classic symptoms of hyperglycemia or hyperglycemic crisis, a random glucose >/= 200 mg/dl is diagnostic for diabetes. In the absence of unequivocal hyperglycemia, results should be confirmed by repeat testing. The classification and Diagnosis of Diabetes Diabetes Care 2021; 46: S19-S40. Current interpretive data was last revised 2022. Calcium 9.2 8.5 - 10.3 mg/dL [facility] Blood 05/22/2025 4:14 PM CDT 05/22/2025 4:43 PM CDT Result [facility] Bar Gamble MD LAB BLOOD ORDERABLES Final R esult Performing Organization Address [facility] Co de Phone Number [facility] [place] [address] * (ABNORMAL) POCT glucose (05/22/2025 2:58 PM CDT) Glucose, POC 246(H) 70 - 199 mg/dL Blood 05/22/2025 2:58 PM CDT 05/22/2025 2:58 PM CDT Result [facility] Addy Tapia MD LAB POCT ORDERABLES - DE VICE Final Result Performing Organization Address City/[facility] Co de Phone Number [facility] [place] [address] * (ABNORMAL) POCT glucose (05/22/2025 2:52 PM CDT) Glucose, POC 255(H) 70 - 199 mg/dL Blood 05/22/2025 2:52 PM CDT 05/22/2025 2:52 PM CDT Result [facility] Addy Tapia MD LAB POCT ORDERABLES - DE VICE Final Result Performing Organization Address [facility] de Phone Number [facility] [place] [address] * Oxyhemoglobin, central venous (05/22/2025 2:48 PM CDT) Oxyhemoglobin, CV 82.3 % Comment: Interpretive Data No reference range established. Current interpretive data was last revised 2020. Blood 05/22/2025 2:48 PM CDT 05/22/2025 2:52 PM CDT Addy Tapia MD LAB BLOOD ORDERABLES Fin al Result Performing Organization Address [facility] [place] [address] * (ABNORMAL) Blood gas, arterial (05/22/2025 2:48 PM CDT) pH, Art 7.40 7.35 - 7.45 PCO2, Arterial 37 35 - [address] [facility] PO2, Arterial 107 83 - [address] [facility] HCO3 Art (Calculated) 24 20 - 30 mmol/L [facility] BE, art -1 mmol/L [facility] Comment: Interpretive Data No Reference Range Established Current Interpretive Data was last revised on 2017 O2 Sat Art (Measured) 98(H) 90 - 95 % [facility] Blood 05/22/2025 2:48 PM CDT 05/22/2025 2:52 PM CDT Addy Tapia MD LAB BLOOD ORDERABLES Fin al Result Performing Organization Address [facility] Co [place] [address] * Oxyhemoglobin, central venous (05/22/2025 1:33 PM CDT) Oxyhemoglobin, CV 94.3 % Comment: Interpretive Data No reference range established. Current interpretive data was last revised 2020. Blood 05/22/2025 1:33 PM CDT 05/22/2025 1:42 PM CDT Addy Tapia MD LAB BLOOD ORDERABLES Fin al Result Performing Organization Address [facility] Co de Phone Number [facility] [place] [address] * Oxyhemoglobin, pulmonary artery (05/22/2025 1:33 PM CDT) Oxyhemoglobin, PA 96.9 % Comment: Interpretive Data No reference range established. Current interpretive data was last revised 2020. Blood 05/22/2025 1:33 PM CDT 05/22/2025 1:42 PM CDT Addy Tapia MD LAB BLOOD ORDERABLES Fin al Result Performing Organization Address [facility] de Phone Number [facility] [place] [address] * (ABNORMAL) Hemoglobin total, pulmonary artery (05/22/2025 1:33 PM CDT) Hemoglobin total, PA 7.3(L) 13.0 - 17.5 g/dL Blood 05/22/2025 1:33 PM CDT 05/22/2025 1:42 PM CDT Zev Cowart MD PhD LAB BLOOD ORDERABLES Fi nal Result Performing Organization Address [facility] Co de Phone Number [facility] [place] [address] * Critical Care (05/22/2025 12:36 PM CDT) Narrative Stephanie Hood MD - 05/22/2025 12:36 PM CDT Stephanie Hood MD 05/22/2025 12:38 PM Critical Care Performed by: Stephanie Hood MD Authorized by: Stephanie Hood MD CRITICAL CARE: Team: 83 CTICU Shift: AM Level of Billing: Subsequent Hospital Visit Level 3 My time spent with this patient was 50 minutes: Critical Provider Statement: I have seen and examined the patient on this day of service. I have reviewed and confirmed the history, physical exam, laboratory, and radiographic data as documented in the ICU note. I have reviewed and discussed my treatment plan with the patient's team and other medical/senior safety management consultant staff. This time was in addition to and separate from care provided by other practitioners on this day of service. Acute pain/acute postoperative pain Right ventricular dysfunction Acute respiratory insufficiency This time was spent by me doing the following: Acute pain control Cardiac pacing and Initiation/active titration of inotropic medications Incentive spirometry, pulmonary toilet Glycemic control Active diuresis I spent time reviewing and interpreting data from bedside monitors, laboratory results, and imaging, I spent time discussing the management of this critically ill patient with consultants and the medical staff and I spent time documenting in the medical record us Stephanie Hood MD IN CLINIC/BEDSIDE ORDERA BLES Final Result * POCT glucose (05/22/2025 12:15 PM CDT) Glucose, POC 183 70 - 199 mg/dL Blood 05/22/2025 12:1 5 PM CDT 05/22/2025 12:15 PM CDT us Addy Tapia MD LAB POCT ORDERABLES - DE VICE Final Result [facility] [place] [address] * (ABNORMAL) POCT glucose (05/22/2025 11:16 AM CDT) Glucose, POC 209(H) 70 - 199 mg/dL Blood 05/22/2025 11:1 6 AM CDT 05/22/2025 11:16 AM CDT Addy Tapia MD LAB POCT ORDERABLES - DE VICE Final Result Performing Organization Address [facility] Co de Phone Number [facility] [place] [address] * Oxyhemoglobin, central venous (05/22/2025 9:04 AM CDT) Oxyhemoglobin, CV 88.6 % Comment: Interpretive Data No reference range established. Current interpretive data was last revised 2020. Blood 05/22/2025 9:04 AM CDT 05/22/2025 9:11 AM CDT Addy Tapia MD LAB BLOOD ORDERABLES Fin al Result Performing Organization Address [facility] Co de Phone Number [facility] [place] [address] * Oxyhemoglobin, pulmonary artery (05/22/2025 9:04 AM CDT) Oxyhemoglobin, PA 95.2 % Comment: Interpretive Data No reference range established. Current interpretive data was last revised 2020. Blood 05/22/2025 9:04 AM CDT 05/22/2025 9:12 AM CDT Zev Cowart MD PhD LAB BLOOD ORDERABLES Fi nal Result Performing Organization Address [facility] Co de Phone Number [facility] [place] [address] * (ABNORMAL) Hemoglobin total, pulmonary artery (05/22/2025 9:04 AM CDT) Hemoglobin total, PA 7.5(L) 13.0 - 17.5 g/dL Blood 05/22/2025 9:04 AM CDT 05/22/2025 9:12 AM CDT us Zev Cowart MD PhD LAB BLOOD ORDERABLES Fi nal Result [facility] [place] [address] * (ABNORMAL) POC Blood Gas and Chemistries, Arterial - (05/22/2025 8:09 AM CDT) pH, Art POC 7.44 7.35 - 7.45 pCO2, Art POC 40 35 - 45 mmHg [facility] pO2, Art POC 100 83 - 108 mmHg [facility] Na, POC 136 135 - 145 mmol/[facility] POC 4.4 3.3 - 4.9 mmol/L [facility] Comment: Interpretive Data Not all point of care methods assess for hemolysis. Confirm with instrument and retest K+ if not consistent with clinical signs and symptoms. Current Interpretive Data was last revised on 2024. Cl, POC 103 97 - 110 mmol/L [facility] Ionized Ca, POC 4.69 4.50 - 5.10 mg/dL [facility] Glucose, POC 145 70 - 199 mg/dL [facility] Lactate POC 1.0 0.7 - 2.0 mmol/L [facility] SO2 (sameer) arterial 98(H) 90 - 95 % [facility] Base excess, POC 2.8 mmol/L [facility] HCO3, Art POC 27 20 - 30 mmol/L [facility] Hct, POC 40.0(L) 41.4 - 51.6 % [facility] Total Hb, POC 13.2(L) 13.8 - 17.2 g/dL [facility] Blood 05/22/2025 8:09 AM CDT 05/22/2025 8:09 AM CDT us Addy Tapia MD LAB POCT ORDERABLES - DE VICE Final Result Performing Organization Address City/[facility]/ZIP Co de Phone Number [facility] [place] [address] * (ABNORMAL) Hemoglobin total, pulmonary artery (05/22/2025 8:06 AM CDT) Hemoglobin total, PA 7.7(L) 13.0 - 17.5 g/dL Blood 05/22/2025 8:06 AM CDT 05/22/2025 8:11 AM CDT us Zev Cowart MD PhD LAB BLOOD [place] [address] * POCT glucose (05/22/2025 5:59 AM CDT) Glucose, POC 133 70 - 199 mg/dL Blood 05/22/2025 5:59 AM CDT 05/22/2025 5:59 AM CDT us Addy Tapia MD LAB POCT ORDERABLES - DE VICE Final Result Performing Organization Address [facility] Co de Phone Number [facility] [place] [address] * (ABNORMAL) Hemoglobin total, pulmonary artery (05/22/2025 5:27 AM CDT) Hemoglobin total, PA 8.3(L) 13.0 - 17.5 g/dL Blood 05/22/2025 5:27 AM CDT 05/22/2025 5:46 AM CDT us Bar Gamble MD LAB BLOOD ORDERABLES Final R esult Performing Organization Address [facility]/ZIP Co de Phone Number [facility] [place] [address] * Tacrolimus level trough (05/22/2025 5:27 AM CDT) Tacrolimus trough 3.0 ng/mL Comment: Interpretive Data Testing performed by liquid chromatography-tandem mass spectrometry. Therapeutic concentrations vary depending on type of transplanted organ and time elapsed since transplant. Typical trough concentrations range from 5-15 ng/mL. This test was developed and its performance characteristics determined by the [facility] consistent with CLIA requirements. This test has not been cleared or approved by the [place] Food and Drug administration. Current interpretive data last reviewed 2020. Blood 05/22/2025 5:27 AM CDT 05/22/2025 5:46 AM CDT Zev Cowart MD PhD LAB BLOOD ORDERABLES Fi nal Result Performing Organization Address City/[facility]/ZIP Co de Phone Number [facility] [place] [address] * POCT glucose (05/22/2025 5:26 AM CDT) [facility] Glucose, POC 127 70 - 199 mg/dL Blood 05/22/2025 5:26 AM CDT 05/22/2025 5:26 AM CDT Addy Tapia MD LAB POCT ORDERABLES - DE VICE Final Result Performing Organization Address [facility] Co az Phone Number [facility] [place] [address] * XR Chest 1 View (05/22/2025 5:13 AM CDT) Anatomical Region Laterality Modality Body, Chest N/A Digital Radiogra phy 05/22/2025 11:1 6 AM CDT Impressions 05/22/2025 2:26 PM CDT First exam: Interval extubation. Right internal jugular central venous catheter with tip overlying the superior vena cava. Right internal jugular [place] catheter tip overlies the main pulmonary artery. Mediastinal drains in place. Sternal plates. Bilateral costophrenic angles are out of the field of view. Small bilateral pleural effusions with associated atelectasis. No pneumothorax. Stable cardiomediastinal silhouette. Second exam: No significant change compared to the 1st exam. Dictated by: Magali Cotton MD The radiology attending physician has personally reviewed this study, and had reviewed and/or edited this written report and agrees with it. Electronically signed by: Bar Summers M.D. Narrative 05/22/2025 2:26 PM CDT Examination: 2 portable chests 1. Chest one view portable 05/21/2025 9:42 PM 2. Chest one view portable 05/22/2025 5:04 AM COMPARISON: 05/21/2025 8:20 AM Procedure Note Bar Summers MD - 05/22/2025 Examination: 2 portable chests 1. Chest one view portable 05/21/2025 9:42 PM 2. Chest one view portable 05/22/2025 5:04 AM COMPARISON: 05/21/2025 8:20 AM IMPRESSION: First exam: Interval extubation. Right internal jugular central venous catheter with tip overlying the superior vena cava. Right internal jugular [place] catheter tip overlies the main pulmonary artery. Mediastinal drains in place. Sternal plates. Bilateral costophrenic angles are out of the field of view. Small bilateral pleural effusions with associated atelectasis. No pneumothorax. Stable cardiomediastinal silhouette. Second exam: No significant change compared to the 1st exam. Dictated by: Magali Cotton MD The radiology attending physician has personally reviewed this study, and had reviewed and/or edited this written report and agrees with it. Electronically signed by: Bar Summers M.D. us Bar Gamble MD IMG XR PROCEDURES Final Resu lt * POCT glucose (05/22/2025 3:05 AM CDT) [facility] Signature Glucose, POC 111 70 - 199 mg/dL Blood 05/22/2025 3:05 AM CDT 05/22/2025 3:05 AM CDT us Addy Audumbar Pawale MD LAB POCT ORDERABLES - DE VICE Final Result Performing Organization Address City/[facility]/ZIP Co de Phone Number [facility] [place] [address] * (ABNORMAL) Blood gas, arterial (05/22/2025 1:35 AM CDT) pH, Art 7.50(H) 7.35 - 7.45 PCO2, Arterial 43 35 - [address] [facility] PO2, Arterial 91 83 - [address] [facility] HCO3 Art (Calculated) 35(H) 20 - 30 mmol/L [facility] BE, art 9 mmol/L [facility] Comment: Interpretive Data No Reference Range Established Current Interpretive Data was last revised on 2017 O2 Sat Art (Measured) 98(H) 90 - 95 % [facility] Blood 05/22/2025 1:35 AM CDT 05/22/2025 1:40 AM CDT Addy Tapia MD LAB BLOOD ORDERABLES Fin al Result Performing Organization Address City/[facility]/[place] [address] * POCT glucose (05/22/2025 1:30 AM CDT) Glucose, POC 109 70 - 199 mg/dL Blood 05/22/2025 1:30 AM CDT 05/22/2025 1:30 AM CDT Addy Tapia MD LAB POCT ORDERABLES - DE VICE Final Result Performing Organization Address City/[facility] [place] [address] * POCT glucose (05/22/2025 12:26 AM CDT) Glucose, POC 141 70 - 199 mg/dL Blood 05/22/2025 12:2 6 AM CDT 05/22/2025 12:26 AM CDT Addy Tapia MD LAB POCT ORDERABLES - DE VICE Final Result Performing Organization Address [facility] Co de Phone Number [facility] [place] [address] * Potassium, whole blood (05/22/2025 12:21 AM CDT) Potassium, bld 3.9 3.3 - 4.9 mmol/L Blood 05/22/2025 12:2 1 AM CDT 05/22/2025 12:44 AM CDT Zev Cowart MD PhD LAB BLOOD ORDERABLES Fi nal Result Performing Organization Address [facility] Co de Phone Number [facility] [place] [address] * (ABNORMAL) eGFR (05/22/2025 12:21 AM CDT) eGFR 47(L) >=60 mL/min/1. 73 m2 Comment: Interpretive Data Reference Interval Normal >/= 90 mL/min/1.73m2 Mildly decreased* 60 - 89 mL/min/1.73m2 Mildly to moderately decreased 45 - 59 mL/min/1.73m2 Moderately to severely decreased 30 - 44 mL/min/1.73m2 Severely decreased 15 - 29 mL/min/1.73m2 Kidney Failure < 15 mL/min/1.73m2 *Relative to young adult level Estimated glomerular filtration rate is determined by the 2020 CKD-EPI equation recommended by the National Kidney Foundation (A Unifying Approach to GFR Estimation: Recommendations of the NKF-ASK Task Force on Reassessing the Inclusion of Race in Diagnosing Kidney Disease, JASN 2020). The CKD-EPI equation should not be used for patients with unstable renal function and has not been validated in children and those over 70. Current interpretive data was last reviewed 2021. Blood 05/22/2025 12:2 1 AM CDT 05/22/2025 1:07 AM CDT us Bar Gamble MD LAB BLOOD ORDERABLES Final R esult Performing Organization Address [facility] Co de Phone Number [facility] [place] [address] * (ABNORMAL) Hepatitis C (HCV) RNA PCR, quantitative Blood Blood, Venous (05/22/2025 12:21 AM CDT) [facility] HCV RNA result Detected( A) [facility] Comment: The quantifiable range of this assay is 15 IU/mL to 100,000,000 IU/mL (1.18 log IU/mL to 8.00 log IU/mL). Testing was performed by the CARLOS 6800 HCV Test ([employer] Testing performed at [facility] Current Interpretive Data was last revised on 2021 HCV RNA IU/mL 281 IUnits/mL [facility] HCV RNA log IU/mL 2.45 log IUnits/mL [facility] Blood Venous blood specimen / Unknown 05/22/2025 12:21 AM CDT 05/22/2025 1:20 AM CDT us Lindsay Arciniega MD LAB MICROBIOLOGY - GENERAL ORDER LINH Final Result Performing Organization Address [facility] de Phone Number [facility] [place] [address] [facility] * (ABNORMAL) CBC without differential (05/22/2025 12:21 AM CDT) [facility] WBC 20.40(H) 3.80 - 9.90 K/cumm Hgb 8.2(L) 13.0 - 17.5 g/dL [facility] Hct 24.7(L) 38.9 - 50.3 % [facility] Plt 157 150 - 400 K/cumm [facility] MPV 11.4 9.1 - 12.[address] [facility] RBC 3.02(L) 4.30 - 5.80 M/cumm [facility] MCV 81.8 81.3 - 96.[address] [facility] MCH 27.2 27.1 - 33.[address] [facility] MCHC 33.2 32.3 - 35.7 g/dL [facility] RDW CV 15.1(H) 11.1 - 14.9 % [facility] RDW SD 45.4 35.7 - 48.[address] [facility] NRBC abs 0.00 0.00 - 0.01 K/cumm [facility] Blood 05/22/2025 12:2 1 AM CDT 05/22/2025 1:07 AM CDT Zev Cowart MD PhD LAB BLOOD ORDERABLES Fi nal Result Performing Organization Address City/[facility] Co de Phone Number [facility] [place] [address] * (ABNORMAL) Phosphorus (05/22/2025 12:21 AM CDT) Phosphorus, pl 5.1(H) 2.3 - 4.5 mg/dL Blood 05/22/2025 12:2 1 AM CDT 05/22/2025 1:07 AM CDT Zev Cowart MD PhD LAB BLOOD ORDERABLES Fi nal Result [facility] [place] [address] * Magnesium (05/22/2025 12:21 AM CDT) Magnesium 2.5 1.4 - 2.5 mg/dL Blood 05/22/2025 12:2 1 AM CDT 05/22/2025 1:07 AM CDT Zev Cowart MD PhD LAB BLOOD ORDERABLES Fi nal Result Performing Organization Address [facility] Co de Phone Number [facility] [place] [address] * (ABNORMAL) Hepatic function panel (05/22/2025 12:21 AM CDT) Pathologist [facility] Bilirubin, total 1.4(H) 0.1 - 1.2 mg/dL Bilirubin, direct 0.8(H) 0.1 - 0.3 mg/dL [facility] Protein, pl 5.8(L) 6.5 - 8.5 g/dL [facility] Albumin 3.9 3.5 - 5.0 g/dL [facility] Alk phos 137(H) 40 - 130 Units/L [facility] ALT 24 7 - 55 Units/L [facility] AST 91(H) 10 - 50 Units/L [facility] Blood 05/22/2025 12:2 1 AM CDT 05/22/2025 1:07 AM CDT us Bar Gamble MD LAB BLOOD ORDERABLES Final R esult Performing Organization Address [facility] Co de Phone Number [facility] [place] [address] * (ABNORMAL) Basic metabolic panel (05/22/2025 12:21 AM CDT) [facility] Sodium 138 135 - 145 mmol/L Potassium, pl 4.0 3.3 - 4.9 mmol/L [facility] Chloride 100 97 - 110 mmol/L [facility] CO2 29 22 - 32 mmol/L [facility] Anion gap 9 2 - 15 mmol/L [facility] BUN 38(H) 6 - 25 mg/dL [facility] Creatinine 1.65(H) 0.80 - 1.30 mg/dL [facility] Glucose 138 70 - 199 mg/dL [facility] Comment: Interpretive Data Fasting glucose >/= 126 mg/dl is diagnostic for diabetes. Fasting is defined as no caloric intake for at least 8 hours. Fasting glucose between 100 mg/dl to 125 mg/dl is diagnostic of prediabetes. In a patient with classic symptoms of hyperglycemia or hyperglycemic crisis, a random glucose >/= 200 mg/dl is diagnostic for diabetes. In the absence of unequivocal hyperglycemia, results should be confirmed by repeat testing. The classification and Diagnosis of Diabetes Diabetes Care 2021; 46: S19-S40. Current interpretive data was last revised 2022. Calcium 9.7 8.5 - 10.3 mg/dL [facility] Blood 05/22/2025 12:2 1 AM CDT 05/22/2025 1:07 AM CDT Bar Gamble MD LAB BLOOD ORDERABLES Final R esult Performing Organization Address [facility] Co de Phone Number [facility] [place] [address] * POCT glucose (05/21/2025 11:11 PM CDT) Glucose, POC 185 70 - 199 mg/dL Blood 05/21/2025 11:1 1 PM CDT 05/21/2025 11:11 PM CDT Addy Tapia MD LAB POCT ORDERABLES - DE VICE Final Result Performing Organization Address [facility] de Phone Number [facility] [place] [address] * (ABNORMAL) Hemoglobin total, pulmonary artery (05/21/2025 11:10 PM CDT) Hemoglobin total, PA 8.0(L) 13.0 - 17.5 g/dL Blood 05/21/2025 11:1 0 PM CDT 05/21/2025 11:28 PM CDT Bar Gamble MD LAB BLOOD ORDERABLES Final R esult Performing Organization Address [facility] Co de Phone Number [facility] [place] [address] * (ABNORMAL) POCT glucose (05/21/2025 10:12 PM CDT) Glucose, POC 208(H) 70 - 199 mg/dL Blood 05/21/2025 10:1 2 PM CDT 05/21/2025 10:12 PM CDT Addy Jamar Tapia MD LAB POCT ORDERABLES - DE VICE Final Result DULCE MARIA [facility] [place] [address] * XR Chest 1 View - in PM (05/21/2025 10:03 PM CDT) Anatomical Region Laterality Modality Body, Chest N/A Digital Radiogra phy 05/22/2025 11:1 6 AM CDT Impressions 05/22/2025 2:26 PM CDT First exam: Interval extubation. Right internal jugular central venous catheter with tip overlying the superior vena cava. Right internal jugular [place]ne catheter tip overlies the main pulmonary artery. Mediastinal drains in place. Sternal plates. Bilateral costophrenic angles are out of the field of view. Small bilateral pleural effusions with associated atelectasis. No pneumothorax. Stable cardiomediastinal silhouette. Second exam: No significant change compared to the 1st exam. Dictated by: Magali Cotton MD The radiology attending physician has personally reviewed this study, and had reviewed and/or edited this written report and agrees with it. Electronically signed by: Bar Summers M.D. Narrative 05/22/2025 2:26 PM CDT Examination: 2 portable chests 1. Chest one view portable 05/21/2025 9:42 PM 2. Chest one view portable 05/22/2025 5:04 AM COMPARISON: 05/21/2025 8:20 AM Procedure Note Bar Summers MD - 05/22/2025 Examination: 2 portable chests 1. Chest one view portable 05/21/2025 9:42 PM 2. Chest one view portable 05/22/2025 5:04 AM COMPARISON: 05/21/2025 8:20 AM IMPRESSION: First exam: Interval extubation. Right internal jugular central venous catheter with tip overlying the superior vena cava. Right internal jugular [place] catheter tip overlies the main pulmonary artery. Mediastinal drains in place. Sternal plates. Bilateral costophrenic angles are out of the field of view. Small bilateral pleural effusions with associated atelectasis. No pneumothorax. Stable cardiomediastinal silhouette. Second exam: No significant change compared to the 1st exam. Dictated by: Magali Cotton MD The radiology attending physician has personally reviewed this study, and had reviewed and/or edited this written report and agrees with it. Electronically signed by: Bar Summers M.D. Ness Roberson [employer] IMG XR PROCEDURES Huong l Result * POCT glucose (05/21/2025 8:51 PM CDT) Glucose, POC 197 70 - 199 mg/dL Blood 05/21/2025 8:51 PM CDT 05/21/2025 8:51 PM CDT Addy Tapia MD LAB POCT ORDERABLES - DE VICE Final Result Performing Organization Address [facility] Phone Number DULCE MARIA [facility] [place] [address] * POCT glucose (05/21/2025 8:13 PM CDT) Glucose, POC 168 70 - 199 mg/dL Blood 05/21/2025 8:13 PM CDT 05/21/2025 8:13 PM CDT Addy Tapia MD LAB POCT ORDERABLES - DE VICE Final Result Performing Organization Address [facility]/State/ZIP Co de Phone Number [facility] [place] [address] * POCT glucose (05/21/2025 7:10 PM CDT) Glucose, POC 151 70 - 199 mg/dL Blood 05/21/2025 7:10 PM CDT 05/21/2025 7:10 PM CDT us Addy Tapia MD LAB POCT ORDERABLES - DE VICE Final Result Performing Organization Address [facility] [place] [address] * POCT glucose (05/21/2025 6:42 PM CDT) Glucose, POC 166 70 - 199 mg/dL Blood 05/21/2025 6:42 PM CDT 05/21/2025 6:42 PM CDT us Zev Cowart MD PhD LAB POCT ORDERABLES - D EVICE Final Result Performing Organization Address [facility]/[place] [address] * (ABNORMAL) POCT glucose (05/21/2025 6:25 PM CDT) Glucose, POC 204(H) 70 - 199 mg/dL Blood 05/21/2025 6:25 PM CDT 05/21/2025 6:25 PM CDT us Zev Cowart MD PhD LAB POCT ORDERABLES - D EVICE Final Result Performing Organization Address City/[facility]/ZIP Co de Phone Number [facility] [place] [address] * (ABNORMAL) POCT glucose (05/21/2025 5:58 PM CDT) Glucose, POC 69(L) 70 - 199 mg/dL Blood 05/21/2025 5:58 PM CDT 05/21/2025 5:58 PM CDT us Zev Cowrat MD PhD LAB POCT ORDERABLES - D EVICE Final Result Performing Organization Address [facility] de Phone Number [facility] [place] [address] * POCT glucose (05/21/2025 5:00 PM CDT) Glucose, POC 107 70 - 199 mg/dL Blood 05/21/2025 5:00 PM CDT 05/21/2025 5:00 PM CDT Zev Coawrt MD PhD LAB POCT ORDERABLES - D EVICE Final Result Performing Organization Address [facility] de Phone Number [facility] [place] [address] * Oxyhemoglobin, pulmonary artery (05/21/2025 4:00 PM CDT) Pathologist [facility] Oxyhemoglobin, PA 87.0 % Comment: Interpretive Data No reference range established. Current interpretive data was last revised 2020. Blood 05/21/2025 4:00 PM CDT 05/21/2025 4:11 PM CDT us Bar Gamble MD LAB BLOOD ORDERABLES Final R esult Performing Organization Address [facility] Co de Phone Number [facility] [place] [address] * (ABNORMAL) Hemoglobin total, pulmonary artery (05/21/2025 4:00 PM CDT) Hemoglobin total, PA 8.2(L) 13.0 - 17.5 g/dL Blood 05/21/2025 4:00 PM CDT 05/21/2025 4:11 PM CDT Bar Gamble MD LAB BLOOD ORDERABLES Final R esult Performing Organization Address [facility] Co de Phone Number DULCE MARIA [facility] [place] [address] * (ABNORMAL) eGFR (05/21/2025 4:00 PM CDT) eGFR 56(L) >=60 mL/min/1. 73 m2 Comment: Interpretive Data Reference Interval Normal >/= 90 mL/min/1.73m2 Mildly decreased* 60 - 89 mL/min/1.73m2 Mildly to moderately decreased 45 - 59 mL/min/1.73m2 Moderately to severely decreased 30 - 44 mL/min/1.73m2 Severely decreased 15 - 29 mL/min/1.73m2 Kidney Failure < 15 mL/min/1.73m2 *Relative to young adult level Estimated glomerular filtration rate is determined by the 2020 CKD-EPI equation recommended by the National Kidney Foundation (A Unifying Approach to GFR Estimation: Recommendations of the NKF-ASK Task Force on Reassessing the Inclusion of Race in Diagnosing Kidney Disease, JASN 2020). The CKD-EPI equation should not be used for patients with unstable renal function and has not been validated in children and those over 70. Current interpretive data was last reviewed 2021. Blood 05/21/2025 4:00 PM CDT 05/21/2025 4:22 PM CDT us Bar Gamble MD LAB BLOOD ORDERABLES Final R esult Performing Organization Address [facility] Co de Phone Number DULCE MARIA [facility] [place] [address] * Lactate, whole blood (05/21/2025 4:00 PM CDT) Lactate, bld 1.4 0.7 - 2.0 mmol/L Blood 05/21/2025 4:00 PM CDT 05/21/2025 4:11 PM CDT Bar Gamble MD LAB BLOOD ORDERABLES Final R esult Performing Organization Address City/[facility]/ZIP Co de Phone Number [facility] [place] [address] * (ABNORMAL) Basic metabolic panel (05/21/2025 4:00 PM CDT) Pathologist [facility] Sodium 138 135 - 145 mmol/L Potassium, pl 3.9 3.3 - 4.9 mmol/L [facility] Chloride 102 97 - 110 mmol/L [facility] CO2 28 22 - 32 mmol/L [facility] Anion gap 8 2 - 15 mmol/L [facility] BUN 36(H) 6 - 25 mg/dL [facility] Creatinine 1.42(H) 0.80 - 1.30 mg/dL [facility] Glucose 128 70 - 199 mg/dL [facility] Comment: Interpretive Data Fasting glucose >/= 126 mg/dl is diagnostic for diabetes. Fasting is defined as no caloric intake for at least 8 hours. Fasting glucose between 100 mg/dl to 125 mg/dl is diagnostic of prediabetes. In a patient with classic symptoms of hyperglycemia or hyperglycemic crisis, a random glucose >/= 200 mg/dl is diagnostic for diabetes. In the absence of unequivocal hyperglycemia, results should be confirmed by repeat testing. The classification and Diagnosis of Diabetes Diabetes Care 2021; 46: S19-S40. Current interpretive data was last revised 2022. Calcium 9.8 8.5 - 10.3 mg/dL [facility] Blood 05/21/2025 4:00 PM CDT 05/21/2025 4:22 PM CDT Bar Gamble MD LAB BLOOD ORDERABLES Final R esult Performing Organization Address City/[facility]/ZIP Co de Phone Number [facility] [address] * POCT glucose (05/21/2025 3:54 PM CDT) Glucose, POC 143 70 - 199 mg/dL Blood 05/21/2025 3:54 PM CDT 05/21/2025 3:54 PM CDT Zev Cowart MD PhD LAB POCT ORDERABLES - D EVICE Final Result Performing Organization Address City/[facility] [place] [address] * POCT glucose (05/21/2025 3:04 PM CDT) Glucose, POC 152 70 - 199 mg/dL Blood 05/21/2025 3:04 PM CDT 05/21/2025 3:04 PM CDT Zev Cowart MD PhD LAB POCT ORDERABLES - D EVICE Final Result Performing Organization Address [facility] [place] [address] * (ABNORMAL) POCT glucose (05/21/2025 1:50 PM CDT) Glucose, POC 208(H) 70 - 199 mg/dL Blood 05/21/2025 1:50 PM CDT 05/21/2025 1:50 PM CDT Zev Cowart MD PhD LAB POCT ORDERABLES - D EVICE Final Result Performing Organization Address [facility] [place] [address] * (ABNORMAL) POCT glucose (05/21/2025 1:03 PM CDT) Glucose, POC 232(H) 70 - 199 mg/dL Blood 05/21/2025 1:03 PM CDT 05/21/2025 1:03 PM CDT Zev Cowart MD PhD LAB POCT ORDERABLES - D EVICE Final Result Performing Organization Address City/[facility]/ZIP Co de Phone Number [facility] [place] [address] * (ABNORMAL) POCT glucose (05/21/2025 11:52 AM CDT) Glucose, POC 240(H) 70 - 199 mg/dL Blood 05/21/2025 11:5 2 AM CDT 05/21/2025 11:52 AM CDT Zev Cowart MD PhD LAB POCT ORDERABLES - D EVICE Final Result Performing Organization Address [facility] de Phone Number [facility] [place] [address] * (ABNORMAL) Differential, auto (05/21/2025 11:28 AM CDT) Pathologist [facility] Neutrophil abs 13.62(H) 1.50 - 6.50 K/cumm Imm gran abs 0.09 0.00 - 0.10 K/cumm [facility] Lymphocyte abs 0.21(L) 0.80 - 3.30 K/cumm [facility] Monocyte abs 0.29 0.20 - 0.80 K/cumm [facility] Eosinophil abs 0.00 0.00 - 0.50 K/cumm [facility] Basophil abs 0.01 0.00 - 0.10 K/cumm [facility] Neutrophil pct 95.8 % [facility] Comment: Interpretive Data Percent cell count reference ranges are not reported, since discordance with absolute values may lead to misinterpretation of CBC data. Current Interpretive Data was last revised on 2018. Imm gran pct 0.6 % [facility] Comment: Interpretive Data Percent cell count reference ranges are not reported, since discordance with absolute values may lead to misinterpretation of CBC data. Current Interpretive Data was last revised on 2018. Lymphocyte pct 1.5 % [facility] Comment: Interpretive Data Percent cell count reference ranges are not reported, since discordance with absolute values may lead to misinterpretation of CBC data. Current Interpretive Data was last revised on 2018. Monocyte pct 2.0 % [facility] Comment: Interpretive Data Percent cell count reference ranges are not reported, since discordance with absolute values may lead to misinterpretation of CBC data. Current Interpretive Data was last revised on 2018. Eosinophil pct 0.0 % [facility] Comment: Interpretive Data Percent cell count reference ranges are not reported, since discordance with absolute values may lead to misinterpretation of CBC data. Current Interpretive Data was last revised on 2018. Basophil pct 0.1 % [facility] Comment: Interpretive Data Percent cell count reference ranges are not reported, since discordance with absolute values may lead to misinterpretation of CBC data. Current Interpretive Data was last revised on 2018. Blood 05/21/2025 11:2 8 AM CDT 05/21/2025 11:52 AM CDT us Ness Roberson SWEET [employer] DISINTEGRATOR LAB BLOOD ORDERABLES F inal Result [facility] [place] [address] * (ABNORMAL) CBC with auto differential (05/21/2025 11:28 AM CDT) WBC 14.22(H) 3.80 - 9.90 K/cumm Hgb 8.1(L) 13.0 - 17.5 g/dL [facility] Hct 24.6(L) 38.9 - 50.3 % [facility] Plt 171 150 - 400 K/cumm [facility] MPV 11.6 9.1 - 12.[address] [facility] RBC 3.01(L) 4.30 - 5.80 M/cumm [facility] MCV 81.7 81.3 - 96.[address] [facility] MCH 26.9(L) 27.1 - 33.[address] [facility] MCHC 32.9 32.3 - 35.7 g/dL [facility] RDW CV 15.1(H) 11.1 - 14.9 % [facility] RDW SD 45.5 35.7 - 48.[address] [facility] NRBC abs 0.00 0.00 - 0.01 K/cumm [facility] Blood 05/21/2025 11:2 8 AM CDT 05/21/2025 11:52 AM CDT us Ness Roberson NP LAB BLOOD ORDERABLES F inal Result [facility] [place] [address] * Critical Care (05/21/2025 10:59 AM CDT) Narrative Stephanie Hood MD - 05/21/2025 10:59 AM CDT Stephanie Hood MD 05/21/2025 11:02 AM Critical Care Performed by: Stephanie Hood MD Authorized by: Stephanie Hood MD CRITICAL CARE: Team: 83 CTICU Shift: AM Level of Billing: Critical Care My time spent with this patient was 60 minutes: Critical Provider Statement: I have seen and examined the patient on this day of service. I have reviewed and confirmed the history, physical exam, laboratory and radiologic data as documented in the signed ICU note. I have reviewed and discussed my treatment plan with the ICU team and other medical/senior safety management consultant staff, making frequent assessments and decisions regarding this patient's complex medical care. Critical Care time was exclusive of time spent performing separately billed procedures, treating other patients, and teaching. This time was in addition to and separate from critical care provided by other practitioners in my group on this day of service. Critical Care was necessary to treat or prevent imminent or life-threatening deterioration of the following conditions: Acute pain/acute postoperative pain Acute respiratory failure following procedure/surgery This time was spent by me doing the following: Active titration of continuous sedation and Acute pain control Cardiac pacing, Initiation/active titration of vasoactive medications and Initiation/active titration of inotropic medications Invasive ventilator management, reassessment, and titration Glycemic control I spent time reviewing and interpreting data from bedside monitors, laboratory results, and imaging, I spent time discussing the management of this critically ill patient with consultants and the medical staff and I spent time documenting in the medical record us Stephanie Hood MD IN CLINIC/BEDSIDE ORDERA BLES Final Result * Oxyhemoglobin, pulmonary artery (05/21/2025 10:45 AM CDT) Oxyhemoglobin, PA 88.2 % Comment: Interpretive Data No reference range established. Current interpretive data was last revised 2020. Blood 05/21/2025 10:4 5 AM CDT 05/21/2025 10:51 AM CDT Bar Gamble MD LAB BLOOD ORDERABLES Final R esult [facility] [place] [address] * (ABNORMAL) Hemoglobin total, pulmonary artery (05/21/2025 10:45 AM CDT) Hemoglobin total, PA 8.1(L) 13.0 - 17.5 g/dL Blood 05/21/2025 10:4 5 AM CDT 05/21/2025 10:51 AM CDT Bar Gamble MD LAB BLOOD ORDERABLES Final R esult [facility] [place] [address] * (ABNORMAL) POCT glucose (05/21/2025 10:43 AM CDT) Glucose, POC 254(H) 70 - 199 mg/dL Blood 05/21/2025 10:4 3 AM CDT 05/21/2025 10:43 AM CDT Zev Cowart MD PhD LAB POCT ORDERABLES - D EVICE Final Result Performing Organization Address [facility] de Phone Number [facility] [place] [address] * Lactate (05/21/2025 10:41 AM CDT) Lactate 1.7 0.7 - 2.0 mmol/L Blood 05/21/2025 10:4 1 AM CDT 05/21/2025 10:58 AM CDT Zev Cowart MD PhD LAB BLOOD ORDERABLES Fi nal Result Performing Organization Address [facility] de Phone Number [facility] [place] [address] * Potassium, whole blood (05/21/2025 10:41 AM CDT) Pathologist [facility] Potassium, bld 4.1 3.3 - 4.9 mmol/L Blood 05/21/2025 10:4 1 AM CDT 05/21/2025 10:51 AM CDT Zev Cowart MD PhD LAB BLOOD ORDERABLES Fi nal Result Performing Organization Address [facility] de Phone Number [facility] [place] [address] * (ABNORMAL) eGFR (05/21/2025 10:41 AM CDT) eGFR 59(L) >=60 mL/min/1. 73 m2 Comment: Interpretive Data Reference Interval Normal >/= 90 mL/min/1.73m2 Mildly decreased* 60 - 89 mL/min/1.73m2 Mildly to moderately decreased 45 - 59 mL/min/1.73m2 Moderately to severely decreased 30 - 44 mL/min/1.73m2 Severely decreased 15 - 29 mL/min/1.73m2 Kidney Failure < 15 mL/min/1.73m2 *Relative to young adult level Estimated glomerular filtration rate is determined by the 2020 CKD-EPI equation recommended by the National Kidney Foundation (A Unifying Approach to GFR Estimation: Recommendations of the NKF-ASK Task Force on Reassessing the Inclusion of Race in Diagnosing Kidney Disease, JASN 202). The CKD-EPI equation should not be used for patients with unstable renal function and has not been validated in children and those over 70. Current interpretive data was last reviewed 2021. Blood 05/21/2025 10:4 1 AM CDT 05/21/2025 10:58 AM CDT Zev Cowart MD PhD LAB BLOOD ORDERABLES Fi nal Result Performing Organization Address [facility] de Phone Number [facility] [place] [address] * (ABNORMAL) Protime-INR (05/21/2025 10:41 AM CDT) PT 13.8(H) 9.7 - 13.0 sec INR 1.27(H) 0.90 - 1.[address] [facility] Comment: Interpretive data Oral anticoagulant therapeutic ranges: Venous thromboembolism prophylaxis or treatment: 2.0-3.0 CARDIOLOGY Standard range: 2.0-3.0 High-intensity range: 2.5-3.5 Refer to indication-specific guidelines for appropriate target ranges for prosthetic heart valve replacement. Current interpretive data was last revised on 2019. Blood 05/21/2025 10:4 1 AM CDT 05/21/2025 10:54 AM CDT Zev Cowart MD PhD LAB BLOOD ORDERABLES Fi nal Result Performing Organization Address [facility] Co de Phone Number [facility] [place] [address] * (ABNORMAL) Blood gas, arterial (05/21/2025 10:41 AM CDT) pH, Art 7.44 7.35 - 7.45 PCO2, Arterial 37 35 - [address] [facility] PO2, Arterial 165(H) 83 - [address] [facility] HCO3 Art (Calculated) 26 20 - 30 mmol/L [facility] BE, art 1 mmol/L [facility] Comment: Interpretive Data No Reference Range Established Current Interpretive Data was last revised on 2017 O2 Sat Art (Measured) 100(H) 90 - 95 % [facility] Blood 05/21/2025 10:4 1 AM CDT 05/21/2025 10:51 AM CDT Zev Cowart MD PhD LAB BLOOD ORDERABLES Fi nal Result [facility] [place] [address] * (ABNORMAL) Basic metabolic panel (05/21/2025 10:41 AM CDT) Sodium 136 135 - 145 mmol/L Potassium, pl 4.0 3.3 - 4.9 mmol/L [facility] Chloride 99 97 - 110 mmol/L [facility] CO2 27 22 - 32 mmol/L [facility] Anion gap 10 2 - 15 mmol/L [facility] BUN 36(H) 6 - 25 mg/dL [facility] Creatinine 1.36(H) 0.80 - 1.30 mg/dL [facility] Glucose 248(H) 70 - 199 mg/dL [facility] Comment: Interpretive Data Fasting glucose >/= 126 mg/dl is diagnostic for diabetes. Fasting is defined as no caloric intake for at least 8 hours. Fasting glucose between 100 mg/dl to 125 mg/dl is diagnostic of prediabetes. In a patient with classic symptoms of hyperglycemia or hyperglycemic crisis, a random glucose >/= 200 mg/dl is diagnostic for diabetes. In the absence of unequivocal hyperglycemia, results should be confirmed by repeat testing. The classification and Diagnosis of Diabetes Diabetes Care 202; 46: S19-S40. Current interpretive data was last revised 2022. Calcium 9.9 8.5 - 10.3 mg/dL [facility] Blood 05/21/2025 10:4 1 AM CDT 05/21/2025 10:58 AM CDT us Zev Cowart MD PhD LAB BLOOD ORDERABLES Fi nal Result [facility] [place] [address] * (ABNORMAL) POC Blood Gas and Chemistries, Arterial - (05/21/2025 9:29 AM CDT) pH, Art POC 7.49(H) 7.35 - 7.45 pCO2, Art POC 34(L) 35 - [address] [facility] pO2, Art POC 148(H) 83 - [address] [facility] Na, POC 139 135 - 145 mmol/L [facility] K POC 4.4 3.3 - 4.9 mmol/L [facility] Comment: Interpretive Data Not all point of care methods assess for hemolysis. Confirm with instrument and retest K+ if not consistent with clinical signs and symptoms. Current Interpretive Data was last revised on 2024. Cl, POC 105 97 - 110 mmol/L [facility] Ionized Ca, POC 5.11(H) 4.50 - 5.10 mg/dL [facility] Glucose, POC 237(H) 70 - 199 mg/dL [facility] Lactate POC 1.1 0.7 - 2.0 mmol/L [facility] SO2 (sameer) arterial 99(H) 90 - 95 % [facility] Base excess, POC 2.6 mmol/L [facility] HCO3, Art POC 26 20 - 30 mmol/L [facility] Hct, POC 26.0(L) 41.4 - 51.6 % [facility] Total Hb, POC 8.7(L) 13.8 - 17.2 g/dL [facility] Blood 05/21/2025 9:29 AM CDT 05/21/2025 9:29 AM CDT us Zev Cowart MD PhD LAB POCT ORDERABLES - D EVICE Final Result [facility] [place] [address] * XR Chest 1 View (05/21/2025 8:27 AM CDT) Anatomical Region Laterality Modality Body, Chest N/A Digital Radiogra phy 05/21/2025 11:3 7 AM CDT Impressions 05/21/2025 11:50 AM CDT Comparison with 05/20/2025. An endotracheal tube is approximately 4 centimeters above the demetrius. Right internal jugular central venous catheter with tip overlying the superior vena cava. Right internal jugular [place] catheter tip overlies the main pulmonary artery. Mediastinal drains in place. Sternal plates. Gastric tube courses below the left hemidiaphragm. Mildly increased small bilateral pleural effusions with associated atelectasis. No pneumothorax. Normal cardiomediastinal silhouette in keeping with heart transplant. Dictated by: Magali Cotton MD The radiology attending physician has personally reviewed this study, and had reviewed and/or edited this written report and agrees with it. Electronically signed by: Jessica Jackson M.D. Narrative 05/21/2025 11:50 AM CDT EXAMINATION: 1 view chest radiograph Procedure Note Jessica Jackson MD - 05/21/2025 EXAMINATION: 1 view chest radiograph IMPRESSION: Comparison with 05/20/2025. An endotracheal tube is approximately 4 centimeters above the demetrius. Right internal jugular central venous catheter with tip overlying the superior vena cava. Right internal jugular [place] catheter tip overlies the main pulmonary artery. Mediastinal drains in place. Sternal plates. Gastric tube courses below the left hemidiaphragm. Mildly increased small bilateral pleural effusions with associated atelectasis. No pneumothorax. Normal cardiomediastinal silhouette in keeping with heart transplant. Dictated by: Magali Cotton MD The radiology attending physician has personally reviewed this study, and had reviewed and/or edited this written report and agrees with it. Electronically signed by: Jessica Jackson M.D. Zev Cowart MD PhD IMG XR PROCEDURES Final Result * XR Abdomen AP 1 View - KUB (05/21/2025 8:27 AM CDT) Anatomical Region Laterality Modality Body, Abdomen N/A Digital Radiogra phy 05/21/2025 9:06 AM CDT Impressions 05/21/2025 11:51 AM CDT Interval placement of a gastric tube with tip and side port projecting over the gastric body. Partially imaged postsurgical changes of median sternotomy. 2 mediast[address] dra[address] are in place. Partially imaged [place] catheter. Epicardial pacer wires are in place. Right upper quadrant cholecystectomy clips. Imaged bowel gas pattern is within normal limits. Small bilateral pleural effusions. Dictated by: Carlos Real M.D. The radiology attending physician has personally reviewed this study, and had reviewed and/or edited this written report and agrees with it. Electronically signed by: Nighat Lubin M.D. Narrative 05/21/2025 11:51 AM CDT EXAMINATION: Abdomen, one view. HISTORY: Gastric tube placement COMPARISON: 05/20/2025 Procedure Note Nighat Lubin MD - 05/21/2025 EXAMINATION: Abdomen, one view. HISTORY: Gastric tube placement COMPARISON: 05/20/2025 IMPRESSION: Interval placement of a gastric tube with tip and side port projecting over the gastric body. Partially imaged postsurgical changes of median sternotomy. 2 mediastinal drains are in place. Partially imaged [place] catheter. Epicardial pacer wires are in place. Right upper quadrant cholecystectomy clips. Imaged bowel gas pattern is within normal limits. Small bilateral pleural effusions. Dictated by: Carlos Real M.D. The radiology attending physician has personally reviewed this study, and had reviewed and/or edited this written report and agrees with it. Electronically signed by: Nighat Lubin M.D. Zev Cowart MD PhD IMG XR PROCEDURES Final Result * POCT glucose (05/21/2025 7:45 AM CDT) Glucose, POC 198 70 - 199 mg/dL Blood 05/21/2025 7:45 AM CDT 05/21/2025 7:45 AM CDT Zev Cowart MD PhD LAB POCT ORDERABLES - D EVICE Final Result Performing Organization Address [facility] de Phone Number [facility] [place] [address] * HLA Donor Specific Antibody Report (05/21/2025 7:41 AM CDT) us Provider Scanning LAB BLOOD ORDERABLES Final Res ult * Oxyhemoglobin, central venous (05/21/2025 7:38 AM CDT) Oxyhemoglobin, CV 93.8 % Comment: Interpretive Data No reference range established. Current interpretive data was last revised 2020. Blood 05/21/2025 7:38 AM CDT 05/21/2025 7:44 AM CDT us Zev Cowart MD PhD LAB BLOOD ORDERABLES Fi nal Result Performing Organization Address [facility] de Phone Number [facility] [place] [address] * Oxyhemoglobin, pulmonary artery (05/21/2025 7:38 AM CDT) Oxyhemoglobin, PA 86.0 % Comment: Interpretive Data No reference range established. Current interpretive data was last revised 2020. Blood 05/21/2025 7:38 AM CDT 05/21/2025 7:44 AM CDT Bar Gamble MD LAB BLOOD ORDERABLES Final R esult Performing Organization Address [facility] de Phone Number [facility] [place] [address] * (ABNORMAL) Hemoglobin total, pulmonary artery (05/21/2025 7:38 AM CDT) Hemoglobin total, PA 8.7(L) 13.0 - 17.5 g/dL Blood 05/21/2025 7:38 AM CDT 05/21/2025 7:44 AM CDT us Bar Gamble MD LAB BLOOD ORDERABLES Final R esult Performing Organization Address [facility] [place] [address] * aPTT (05/21/2025 7:38 AM CDT) aPTT 32 28 - 38 sec Comment: Interpretive Data Heparin therapeutic range: 66.0 - 100.0 seconds. Range based on correlation with therapeutic heparin activity range of 0.3 - 0.7 Units/mL. Current interpretive data was last revised on 2023. Blood 05/21/2025 7:38 AM CDT 05/21/2025 7:55 AM CDT us Zev Cowart MD PhD LAB BLOOD ORDERABLES Fi nal Result Performing Organization Address [facility] de Phone Number [facility] [place] [address] * (ABNORMAL) Protime-INR (05/21/2025 7:38 AM CDT) PT 14.1(H) 9.7 - 13.0 sec INR 1.30(H) 0.90 - 1.[address] [facility] Comment: Interpretive data Oral anticoagulant therapeutic ranges: Venous thromboembolism prophylaxis or treatment: 2.0-3.0 CARDIOLOGY Standard range: 2.0-3.0 High-intensity range: 2.5-3.5 Refer to indication-specific guidelines for appropriate target ranges for prosthetic heart valve replacement. Current interpretive data was last revised on 2019. Blood 05/21/2025 7:38 AM CDT 05/21/2025 7:55 AM CDT Zev Cowart MD PhD LAB BLOOD ORDERABLES Fi nal Result Performing Organization Address City/[facility]/ZIP Co de Phone Number [facility] [place] [address] * (ABNORMAL) Type and screen (05/21/2025 7:38 AM CDT) Poppy, indirect Positive(A) ABO Rh O Positive [facility] Blood 05/21/2025 7:38 AM CDT 05/21/2025 7:51 AM CDT Narrative [facility] - 05/21/2025 8:50 AM CDT Has the patient had Daratumumab or Isatuximab in the past 6 months?->Unknown Zev Cowart MD PhD LAB BLOOD BANK TEST ORD ERABLES Final Result Performing Organization Address [facility] Co de Phone Number [facility] [place] [address] * (ABNORMAL) eGFR (05/21/2025 6:44 AM CDT) eGFR 59(L) >=60 mL/min/1. 73 m2 Comment: Interpretive Data Reference Interval Normal >/= 90 mL/min/1.73m2 Mildly decreased* 60 - 89 mL/min/1.73m2 Mildly to moderately decreased 45 - 59 mL/min/1.73m2 Moderately to severely decreased 30 - 44 mL/min/1.73m2 Severely decreased 15 - 29 mL/min/1.73m2 Kidney Failure < 15 mL/min/1.73m2 *Relative to young adult level Estimated glomerular filtration rate is determined by the 2020 CKD-EPI equation recommended by the National Kidney Foundation (A Unifying Approach to GFR Estimation: Recommendations of the NKF-ASK Task Force on Reassessing the Inclusion of Race in Diagnosing Kidney Disease, JASN 2020). The CKD-EPI equation should not be used for patients with unstable renal function and has not been validated in children and those over 70. Current interpretive data was last reviewed 2021. Blood 05/21/2025 6:44 AM CDT 05/21/2025 6:57 AM CDT us Bar Gamble MD LAB BLOOD ORDERABLES Final R esult [facility] [place] [address] * (ABNORMAL) CBC without differential (05/21/2025 6:44 AM CDT) WBC 15.78(H) 3.80 - 9.90 K/cumm Hgb 8.4(L) 13.0 - 17.5 g/dL [facility] Hct 25.5(L) 38.9 - 50.3 % [facility] Plt 165 150 - 400 K/cumm [facility] MPV 11.4 9.1 - 12.[address] [facility] RBC 3.09(L) 4.30 - 5.80 M/cumm [facility] MCV 82.5 81.3 - 96.[address] [facility] MCH 27.2 27.1 - 33.[address] [facility] MCHC 32.9 32.3 - 35.7 g/dL [facility] RDW CV 15.1(H) 11.1 - 14.9 % [facility] RDW SD 45.6 35.7 - 48.[address] [facility] NRBC abs 0.00 0.00 - 0.01 K/cumm [facility] Blood 05/21/2025 6:44 AM CDT 05/21/2025 6:56 AM CDT us Bar Gamble MD LAB BLOOD ORDERABLES Final R esult Performing Organization Address City/[facility] Co de Phone Number [facility] [place] [address] * Triglycerides (05/21/2025 6:44 AM CDT) Triglycerides 60 <=149 mg/dL Comment: Interpretive Data Ages < or = 9 years Acceptable: <75 mg/dL Borderline high: 75-99 mg/dL High: >or= 100 mg/dL Ages 10 to 20 years Acceptable: <90 mg/dL Borderline high: 90-129 mg/dL High: >or= 130 mg/dL Ages > or = 20 years Desirable: <150 mg/dL Borderline high: 150-199 mg/dL High: 200-499 mg/dL Very high: >or= 499 mg/dL Literature References: 1. Expert Panel on Integrated Guidelines for Cardiovascular Health and Risk Reduction in Children and Adolescents. Pediatrics 2011;128:S213 2. NCEP Expert Panel. Circulation 2004;110:227 Current Interpretive Data was last revised on 2018. Blood 05/21/2025 6:44 AM CDT 05/21/2025 6:57 AM CDT Zev Cowart MD PhD LAB BLOOD ORDERABLES Fi nal Result Performing Organization Address [facility] [place] [address] * Phosphorus (05/21/2025 6:44 AM CDT) Phosphorus, pl 2.8 2.3 - 4.5 mg/dL Blood 05/21/2025 6:44 AM CDT 05/21/2025 6:57 AM CDT Zev Cowart MD PhD LAB BLOOD ORDERABLES Fi nal Result Performing Organization Address [facility] Co de Phone Number [facility] [place] [address] * (ABNORMAL) Magnesium (05/21/2025 6:44 AM CDT) Pathologist [facility] Magnesium 2.6(H) 1.4 - 2.5 mg/dL Blood 05/21/2025 6:44 AM CDT 05/21/2025 6:57 AM CDT Bar Gamble MD LAB BLOOD ORDERABLES Final R [facility] Performing Organization Address [facility] Co de Phone Number [facility] [place] [address] * (ABNORMAL) Hepatic function panel (05/21/2025 6:44 AM CDT) [facility] Bilirubin, total 3.0(H) 0.1 - 1.2 mg/dL Comment:Reviewed Bilirubin, direct 1.4(H) 0.1 - 0.3 mg/dL [facility] Comment:Reviewed Protein, pl 6.0(L) 6.5 - 8.5 g/dL [facility] Albumin 4.1 3.5 - 5.0 g/dL [facility] Alk phos 167(H) 40 - 130 Units/L [facility] [facility] ALT 25 7 - 55 Units/L [facility] AST 97(H) 10 - 50 Units/L [facility] Comment:Reviewed Blood 05/21/2025 6:44 AM CDT 05/21/2025 6:57 AM CDT Bar Gamble MD LAB BLOOD ORDERABLES Final R esult Performing Organization Address City/[facility] Co de Phone Number [facility] [place] [address] * (ABNORMAL) Basic metabolic panel (05/21/2025 6:44 AM CDT) Pathologist [facility] Sodium 141 135 - 145 mmol/L Potassium, pl 4.1 3.3 - 4.9 mmol/L [facility] Chloride 103 97 - 110 mmol/L [facility] CO2 26 22 - 32 mmol/L [facility] Anion gap 12 2 - 15 mmol/L [facility] BUN 36(H) 6 - 25 mg/dL [facility] Creatinine 1.36(H) 0.80 - 1.30 mg/dL [facility] Glucose 181 70 - 199 mg/dL [facility] Comment: Interpretive Data Fasting glucose >/= 126 mg/dl is diagnostic for diabetes. Fasting is defined as no caloric intake for at least 8 hours. Fasting glucose between 100 mg/dl to 125 mg/dl is diagnostic of prediabetes. In a patient with classic symptoms of hyperglycemia or hyperglycemic crisis, a random glucose >/= 200 mg/dl is diagnostic for diabetes. In the absence of unequivocal hyperglycemia, results should be confirmed by repeat testing. The classification and Diagnosis of Diabetes Diabetes Care 202; 46: S19-S40. Current interpretive data was last revised 2022. Calcium 10.1 8.5 - 10.3 mg/dL [facility] Blood 05/21/2025 6:44 AM CDT 05/21/2025 6:57 AM CDT us Bar Gamble MD LAB BLOOD ORDERABLES Final R esult [facility] [place] [address] * (ABNORMAL) POC Blood Gas and Chemistries, Arterial - (05/21/2025 6:37 AM CDT) pH, Art POC 7.43 7.35 - 7.45 pCO2, Art POC 40 35 - [address] [facility] pO2, Art POC 208(H) 83 - [address] [facility] Na, POC 138 135 - 145 mmol/L [facility] K POC 4.0 3.3 - 4.9 mmol/L [facility] Comment: Interpretive Data Not all point of care methods assess for hemolysis. Confirm with instrument and retest K+ if not consistent with clinical signs and symptoms. Current Interpretive Data was last revised on 2024. Cl, POC 106 97 - 110 mmol/L [facility] Ionized Ca, POC 5.21(H) 4.50 - 5.10 mg/dL [facility] Glucose, POC 174 70 - 199 mg/dL [facility] Lactate POC 1.4 0.7 - 2.0 mmol/L [facility] SO2 (sameer) arterial 99(H) 90 - 95 % [facility] Base excess, POC 2.0 [facility]/L [facility] HCO3, Art POC 26 20 - 30 mmol/L [facility] Hct, POC 26.0(L) 41.4 - 51.6 % [facility] Total Hb, POC 8.8(L) 13.8 - 17.2 g/dL [facility] Blood 05/21/2025 6:37 AM CDT 05/21/2025 6:37 AM CDT us Zev Cowart MD PhD LAB POCT ORDERABLES - D EVICE Final Result [facility] [place] [address] * (ABNORMAL) POC Blood Gas and Chemistries, Arterial - (05/21/2025 5:18 AM CDT) pH, Art POC 7.44 7.35 - 7.45 pCO2, Art POC 39 35 - [address] [facility] pO2, Art POC 201(H) 83 - [address] [facility] Na, POC 140 135 - 145 mmol/L [facility] K POC 4.0 3.3 - 4.9 mmol/L [facility] Comment: Interpretive Data Not all point of care methods assess for hemolysis. Confirm with instrument and retest K+ if not consistent with clinical signs and symptoms. Current Interpretive Data was last revised on 2024. Cl, POC 107 97 - 110 mmol/L [facility] Ionized Ca, POC 5.54(H) 4.50 - 5.10 mg/dL [facility] Glucose, POC 161 70 - 199 mg/dL [facility] Lactate POC 1.9 0.7 - 2.0 mmol/L [facility] SO2 (sameer) arterial 99(H) 90 - 95 % [facility] Base excess, POC 2.2 mmol/L [facility] HCO3, Art POC 26 20 - 30 mmol/L [facility] Hct, POC 24.0(L) 41.4 - 51.6 % [facility] Total Hb, POC 7.9(L) 13.8 - 17.2 g/dL [facility] Blood 05/21/2025 5:18 AM CDT 05/21/2025 5:18 AM CDT Zev Cowart MD PhD LAB POCT ORDERABLES - D EVICE Final Result Performing Organization Address [facility] [place] [address] * (ABNORMAL) POCT prothrombin time (05/21/2025 4:17 AM CDT) PT, POC 25.2(H) 11.7 - 16.6 sec INR, POC 1.9(H) 0.9 - 1.[address] [facility] Blood 05/21/2025 4:17 AM CDT 05/21/2025 4:17 AM CDT Zev Cowart MD PhD LAB POCT ORDERABLES - D EVICE Final Result Performing Organization Address [facility] de Phone Number [facility] [place] [address] * POCT Partial thromboplastin time (PTT) (05/21/2025 4:17 AM CDT) APTT, POC 34.0 32.5 - 46.1 sec Blood 05/21/2025 4:17 AM CDT 05/21/2025 4:17 AM CDT Zev Cowart MD PhD LAB POCT ORDERABLES - D EVICE Final Result Performing Organization Address [facility] Co de Phone Number [facility] [place] [address] * (ABNORMAL) POC Blood Gas and Chemistries, Arterial - (05/21/2025 4:17 AM CDT) Pathologist [facility] pH, Art POC 7.47(H) 7.35 - 7.45 pCO2, Art POC 37 35 - 45 mmHg [facility] pO2, Art POC 396(H) 83 - 108 mmHg [facility] Na, POC 138 135 - 145 mmol/L [facility] K POC 3.8 3.3 - 4.9 mmol/L [facility] Comment: Interpretive Data Not all point of care methods assess for hemolysis. Confirm with instrument and retest K+ if not consistent with clinical signs and symptoms. Current Interpretive Data was last revised on 2024. Cl, POC 105 97 - 110 mmol/[facility] Ionized Ca, POC 5.41(H) 4.50 - 5.10 mg/dL [facility] Glucose, POC 155 70 - 199 mg/dL [facility] Lactate POC 3.6(H) 0.7 - 2.0 mmol/L [facility] SO2 (sameer) arterial 99(H) 90 - 95 % [facility] Base excess, POC 3.1 mmol/L [facility] HCO3, Art POC 27 20 - 30 mmol/L [facility] Hct, POC 27.0(L) 41.4 - 51.6 % [facility] Total Hb, POC 9.1(L) 13.8 - 17.2 g/dL [facility] Blood 05/21/2025 4:17 AM CDT 05/21/2025 4:17 AM CDT us Zev Cowart MD PhD LAB POCT ORDERABLES - D EVICE Final Result [facility] [place] [address] * (ABNORMAL) POCT hemoglobin, hematocrit and platelet count (05/21/2025 4:15 AM CDT) [facility] Hgb, POC 8.4(L) 13.0 - 17.5 g/dL Hematocrit POC 26.6(L) 38.9 - 50.3 % [facility] Platelet POC 169 150 - 400 K/cumm [facility] Blood 05/21/2025 4:15 AM CDT 05/21/2025 4:15 AM CDT Zev Cowart MD PhD LAB POCT ORDERABLES - D EVICE Final Result Performing Organization Address [facility] Co de Phone Number [facility] [place] [address] * POCT heparin/ACT CPB (05/21/2025 3:38 AM CDT) Pathologist [facility] Heparin POC 0.0 units/mL ACT, CPB 142 112 - [address] [facility] Blood 05/21/2025 3:38 AM CDT 05/21/2025 3:38 AM CDT Zev Cowart MD PhD LAB POCT ORDERABLES - D EVICE Final Result Performing Organization Address [facility] de Phone Number [facility] [place] [address] * (ABNORMAL) POC Blood Gas and Chemistries, Arterial - (05/21/2025 3:36 AM CDT) pH, Art POC 7.51(H) 7.35 - 7.45 pCO2, Art POC 30(L) 35 - [address] [facility] pO2, Art POC 443(H) 83 - [address] [facility] Na, POC 137 135 - 145 mmol/L [facility] K POC 3.6 3.3 - 4.9 mmol/L [facility] Comment: Interpretive Data Not all point of care methods assess for hemolysis. Confirm with instrument and retest K+ if not consistent with clinical signs and symptoms. Current Interpretive Data was last revised on 2024. Cl, POC 104 97 - 110 mmol/L [facility] Ionized Ca, POC 5.29(H) 4.50 - 5.10 mg/dL [facility] Glucose, POC 157 70 - 199 mg/dL [facility] Lactate POC 4.2(C) 0.7 - 2.0 mmol/L [facility] SO2 (sameer) arterial 100(H) 90 - 95 % [facility] Base excess, POC 1.2 mmol/L [facility] HCO3, Art POC 24 20 - 30 mmol/L [facility] Hct, POC 29.0(L) 41.4 - 51.6 % [facility] Total Hb, POC 9.5(L) 13.8 - 17.2 g/dL [facility] Blood 05/21/2025 3:36 AM CDT 05/21/2025 3:36 AM CDT Zev Cowart MD PhD LAB POCT ORDERABLES - D EVICE Final Result Performing Organization Address [facility] Co de Phone Number [facility] [place] [address] * (ABNORMAL) POCT heparin/ACT CPB (05/21/2025 2:49 AM CDT) Pathologist [facility] Heparin POC <2.8 units/mL ACT, CPB 484(H) 112 - [address] [facility] Blood 05/21/2025 2:49 AM CDT 05/21/2025 2:49 AM CDT Zev Cowart MD PhD LAB POCT ORDERABLES - D EVICE Final Result [facility] [place] [address] * (ABNORMAL) POC Blood Gas and Chemistries, Arterial - (05/21/2025 2:48 AM CDT) pH, Art POC 7.38 7.35 - 7.45 pCO2, Art POC 42 35 - [address] [facility] pO2, Art POC 185(H) 83 - [address] Na, POC 138 135 - 145 mmol/[facility] K POC 3.9 3.3 - 4.9 mmol/L [facility] Comment: Interpretive Data Not all point of care methods assess for hemolysis. Confirm with instrument and retest K+ if not consistent with clinical signs and symptoms. Current Interpretive Data was last revised on 2024. Cl, POC 100 97 - 110 mmol/L [facility] Ionized Ca, POC 4.74 4.50 - 5.10 mg/dL [facility] Glucose, POC 177 70 - 199 mg/dL [facility] Lactate POC 3.7(H) 0.7 - 2.0 mmol/L [facility] SO2 (sameer) arterial 100(H) 90 - 95 % [facility] Base excess, POC -0.4 mmol/L [facility] HCO3, Art POC 25 20 - 30 mmol/L [facility] Hct, POC 30.0(L) 41.4 - 51.6 % [facility] Total Hb, POC 9.9(L) 13.8 - 17.2 g/dL [facility] Blood 05/21/2025 2:48 AM CDT 05/21/2025 2:48 AM CDT Zev Cowart MD PhD LAB POCT ORDERABLES - D EVICE Final Result [facility] [place] [address] * (ABNORMAL) POC Blood Gas and Chemistries, Arterial - (05/21/2025 2:30 AM CDT) pH, Art POC 7.39 7.35 - 7.45 pCO2, Art POC 41 35 - [address] pO2, Art POC 188(H) 83 - [address] [facility] [facility] Na, POC 137 135 - 145 mmol/L [facility] K POC 3.9 3.3 - 4.9 mmol/L [facility] Comment: Interpretive Data Not all point of care methods assess for hemolysis. Confirm with instrument and retest K+ if not consistent with clinical signs and symptoms. Current Interpretive Data was last revised on 2024. Cl, POC 101 97 - 110 mmol/L [facility] Ionized Ca, POC 4.70 4.50 - 5.10 mg/dL [facility] Glucose, POC 176 70 - 199 mg/dL [facility] Lactate POC 3.5(H) 0.7 - 2.0 mmol/L [facility] SO2 (sameer) arterial 100(H) 90 - 95 % [facility] Base excess, POC -0.2 mmol/L [facility] HCO3, Art POC 25 20 - 30 mmol/L [facility] Hct, POC 29.0(L) 41.4 - 51.6 % [facility] Total Hb, POC 9.5(L) 13.8 - 17.2 g/dL [facility] Blood 05/21/2025 2:30 AM CDT 05/21/2025 2:30 AM CDT Zev Cowart MD PhD LAB POCT ORDERABLES - D EVICE Final Result Performing Organization Address City/[facility]/ZIP Co de Phone Number [facility] [place] [address] * (ABNORMAL) POCT heparin/ACT CPB (05/21/2025 2:23 AM CDT) [facility] Heparin POC 3.4 units/mL ACT, CPB 519(H) 112 - [address] [facility] Blood 05/21/2025 2:23 AM CDT 05/21/2025 2:23 AM CDT Zev Cowart MD PhD LAB POCT ORDERABLES - D EVICE Final Result [facility] [place] [address] * (ABNORMAL) POC Blood Gas and Chemistries, Arterial - (05/21/2025 2:16 AM CDT) pH, Art POC 7.40 7.35 - 7.45 pCO2, Art POC 40 35 - [address] [facility] pO2, Art POC 187(H) 83 - [address] [facility] Na, POC 138 135 - 145 mmol/L [facility] K POC 4.0 3.3 - 4.9 mmol/L [facility] Comment: Interpretive Data Not all point of care methods assess for hemolysis. Confirm with instrument and retest K+ if not consistent with clinical signs and symptoms. Current Interpretive Data was last revised on 2024. Cl, POC 100 97 - 110 mmol/L [facility] Ionized Ca, POC 4.71 4.50 - 5.10 mg/dL [facility] Glucose, POC 182 70 - 199 mg/dL [facility] Lactate POC 3.7(H) 0.7 - 2.0 mmol/L [facility] SO2 (sameer) arterial 99(H) 90 - 95 % [facility] Base excess, POC 0.0 mmol/L [facility] HCO3, Art POC 25 20 - 30 mmol/L [facility] Hct, POC 28.0(L) 41.4 - 51.6 % [facility] Total Hb, POC 9.2(L) 13.8 - 17.2 g/dL [facility] Blood 05/21/2025 2:16 AM CDT 05/21/2025 2:16 AM CDT Zev Cowart MD PhD LAB POCT ORDERABLES - D EVICE Final Result [facility] [place] [address] * (ABNORMAL) POCT heparin/ACT CPB (05/21/2025 2:02 AM CDT) Pathologist [facility] Heparin POC 4.1 units/mL ACT, CPB 564(H) 112 - [address] [facility] Blood 05/21/2025 2:02 AM CDT 05/21/2025 2:02 AM CDT Zev Cowart MD PhD LAB POCT ORDERABLES - D EVICE Final Result [facility] [place] [address] * Surgical pathology (05/21/2025 1:46 AM CDT) Tissue (Heart, explant) 05/21/2025 1:46 AM CDT Comment:Rest of heart went t o research #[id number] Narrative PATHOLOGY [facility] - 06/02/2025 10:23 AM CDT EPIC results best viewed via link to PDF [facility] [place] [address] Note to Patients: This report may contain a detailed description of human tissue sent by a health care provider to the laboratory for pathologic evaluation. The content of this report is essential for diagnosis and may provide important critical findings. This information may be unfamiliar to patients to review without a medical professional present. It is advised that the patient review this report in the presence of a health care provider who can answer questions and explain the details. SURGICAL PATHOLOGY REPORT FINAL Patient Name: GOSIA ZUNIGA Gender: M : 1965 (Age: 60) Address: [address] [place], [place] [id number] Hospital #: [id number] Taken:05/21/2025 Received:05/21/2025 Reported: 06/02/2025 Patient Type: [facility] Inpatient Service: Cardiology Location: [address] Physician(s): MD Anuel Sahu D.O. Daniel X Harris, MD Diagnosis: Heart, nooksack, left ventricular wall, transplant - Amyloidosis (see comment) fece/05/27/2025 12:49 By this signature, I attest that the above diagnosis is based upon my personal examination of the slides(and/or other material indicated in the diagnosis). Enrique Castillo MD Report Electronically Reviewed and Signed Out By Enrique Castillo MD 06/02/2025 10:23:48 Microscopic Description and Comment: Microscopic examination substantiates the above cited diagnosis. Trichrome and Congo red stains (with appropriate controls) highlight extensive amyloid deposition, consistent with cardiac amyloidosis. 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 Peyton Webber M.D. 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 He is now presenting with heart failure. Operative procedure: Heart transplant (UNOS:[id number]). Specimen(s) Received: A: Lv wall Gross Description: Received in a single formalin filled container labeled with the patient's name and LV wall is an irregular portion of rubbery, red-brown myocardium (3.1 x 2.5 x 2.2 cm) with a grossly identifiable glistening, smooth, yellow fatty pericardial surface and an opposing trabeculated endocardial surface. Sections reveal a homogeneous, rubbery domingo-brown myocardial surface and no focal lesions. Labeled A1. Jar 1. emg05/21/2025 13:39 PA(s): Donna Connor MS, PA ([facility])CM By this signature, I attest that the above diagnosis is based upon my personal examination of the slides(and/or other material). Addenda/Procedures The performance characteristics of some immunohistochemical stains, fluorescence in-situ hybridization tests and immunophenotyping by flow cytometry cited in this report (if any) were determined by the Surgical Pathology and Flow Cytometry Departments at [facility] as part of an ongoing quality lead program and in compliance with federally mandated regulations drawn from the Clinical Laboratory Improvement Act of 1988 (CLIA '88). Some of these tests rely on the use of analyte specific reagents and are subject to specific labeling requirements by the US Food and Drug Administration. Such diagnostic tests may only be performed in a facility that is certified by the Department of Health and Human Services as a high complexity laboratory under CLIA '88. The FDA has determined that such clearance or approval is not necessary. This test is used for clinical purposes. It should not be regarded as investigational or for research. Nevertheless, federal rules concerning the medical use of analyte specific reagents require that the following disclaimer be attached to the report: This test was developed and its performance characteristics determined by the Surgical Pathology and Flow Cytometry Departments of [facility]. It has not been cleared or approved by the U. S. Food and Drug Administration. IMAGES AND SCANNED DOCUMENTS, IF INCLUDED, ONLY VIEWABLE IN PDF VERSION OF REPORT Addy Tapia MD LAB PATHOLOGY ORDERABLES Final Result PATHOLOGY [facility] IO [address] Floor [place], [place] [phone] * (ABNORMAL) POCT heparin/ACT CPB (05/21/2025 1:32 AM CDT) Pathologist [facility] Heparin POC <2.8 units/mL ACT, CPB 529(H) 112 - [address] [facility] Blood 05/21/2025 1:32 AM CDT 05/21/2025 1:32 AM CDT Zev Cowart MD PhD LAB POCT ORDERABLES - D EVICE Final Result Performing Organization Address City/[facility]/ZIP Co de Phone Number [facility] [place] [address] * (ABNORMAL) POC Blood Gas and Chemistries, Arterial - (05/21/2025 1:32 AM CDT) pH, Art POC 7.43 7.35 - 7.45 pCO2, Art POC 38 35 - [address] [facility] pO2, Art POC 212(H) 83 - [address] [facility] Na, POC 137 135 - 145 mmol/L [facility] K POC 2.8(L) 3.3 - 4.9 mmol/L [facility] Comment: Interpretive Data Not all point of care methods assess for hemolysis. Confirm with instrument and retest K+ if not consistent with clinical signs and symptoms. Current Interpretive Data was last revised on 2024. Cl, POC 103 97 - 110 mmol/L [facility] Ionized Ca, POC 4.71 4.50 - 5.10 mg/dL [facility] Glucose, POC 226(H) 70 - 199 mg/dL [facility] Lactate POC 2.7(H) 0.7 - 2.0 mmol/L [facility] SO2 (sameer) arterial 100(H) 90 - 95 % [facility] Base excess, POC 0.9 mmol/L [facility] HCO3, Art POC 25 20 - 30 mmol/L [facility] Hct, POC 27.0(L) 41.4 - 51.6 % [facility] Total Hb, POC 8.9(L) 13.8 - 17.2 g/dL [facility] Blood 05/21/2025 1:32 AM CDT 05/21/2025 1:32 AM CDT us Zev Cowart MD PhD LAB POCT ORDERABLES - D EVICE Final Result [facility] [place] [address] * Central Venous Line (05/21/2025 1:22 AM CDT) Narrative Davy Chau MD - 05/21/2025 1:22 AM CDT Davy Chau MD 05/21/2025 1:24 AM Central Venous Line Patient location: OR Indication: central venous access and CVP monitoring Staff: Supervising provider: Gosia Wilkins MD PhD Placed by: Resident: Davy Chau MD Procedure prep: Patient position: Trendelenburg. PPE: provider hand hygiene, provider hat/mask, sterile gloves, sterile gown, full body drape, large sterile drape, sterile gel and sterile probe covers. Prep solution: chlorhexadine/alcohol was applied to area. Ultrasound Evaluation: Ultrasound was prepped into field and used prior to prep. Ultrasound image(s) saved to archive. Prior to the procedure, the cannulated vein was evaluated by ultrasound and deemed suitably patent for access.This vessel was accessed using real-time ultrasound guidance and an image was placed in the patient's medical record Central line: Laterality: right Site: internal jugular An individually distinct skin insertion site is being utilized for placement of the catheter. Catheter type: introducer sheath Oximetric catheter: yes Catheter size: 9 Fr. Catheter length: 8 cm Catheter length at skin: 8 cm Technique: anatomy identified with ultrasound, Seldinger technique, wire threaded easily, wire removed intact, vein located with finder needle and anatomy identified with surface landmarks Venous verification: manometry and ultrasound confirmation Post insertion: all ports aspirated, all ports flushed easily, line sutured in place and occlusive dressing applied Chlorhexidine patch applied: yes Number of attempts: 1 PA catheter placement: PA catheter type: oximetric PA catheter size: 7.5 Fr PA catheter laterality: right PA catheter site: internal jugular PA catheter depth 20 cmNo Assessment: Events: patient tolerated procedure well with no complications Additional comments: PA catheter placed but not positioned in PA pre-transplant. Plan to reposition once new heart in place. us Gosia Wilkins MD PhD ANESTHESIA ORDERABLES Final Result * MS AN CENTRAL LINE QUADRUPLE LUMEN, MS AN PROCEDURE PLACEHOLDER (05/21/2025 1:21 AM CDT) Narrative Gosia Wilkins MD PhD - 05/21/2025 1:21 AM CDT Gosia Wilkins MD PhD 05/27/2025 7:34 AM Central Venous Line Patient location: OR Indication: central venous access and CVP monitoring Staff: Supervising provider: Gosia Wilkins MD PhD Placed by: Resident: Davy Chau MD Procedure prep: Patient position: Trendelenburg. PPE: provider hand hygiene, provider hat/mask, sterile gloves, sterile gown, large sterile drape, full body drape, sterile gel and sterile probe covers. Prep solution: chlorhexadine/alcohol was applied to area. Ultrasound Evaluation: Ultrasound was prepped into field and used prior to prep. Ultrasound image(s) saved to archive. Prior to the procedure, the cannulated vein was evaluated by ultrasound and deemed suitably patent for access.This vessel was accessed using real-time ultrasound guidance and an image was placed in the patient's medical record Central line: Laterality: right Site: internal jugular An individually distinct skin insertion site is being utilized for placement of the catheter. Catheter type: quad lumen Catheter size: 8.5 Fr. Catheter length: 16 cm Catheter length at skin: 16 cm Technique: anatomy identified with surface landmarks, anatomy identified with ultrasound, vein located with finder needle, Seldinger technique, wire threaded easily and wire removed intact Venous verification: manometry and ultrasound confirmation Post insertion: all ports aspirated, all ports flushed easily, line sutured in place and occlusive dressing applied Chlorhexidine patch applied: yes Number of attempts: 1 Assessment: Events: patient tolerated procedure well with no complications us Gosia Wilkins MD PhD ANESTHESIA ORDERABLES Edited Result - Final * Arterial Line (05/21/2025 1:18 AM CDT) Narrative Davy Chau MD - 05/21/2025 1:18 AM CDT Davy Chau MD 05/21/2025 1:18 AM Arterial Line Patient location: OR Indication: continuous blood pressure monitoring and blood sampling needed Ultrasound assisted: yes Staff: Supervising provider: Gosia Wilkins MD PhD Placed by: Resident: Davy Chau MD Procedure prep: Prep solution: chlorhexadine/alcohol Prep: sterile gloves, provider hat/mask and sterile probe cover Arterial line: Catheter size: 20 gauge Catheter length: 1 and 3/4 inch Catheter type: wire-guided catheter Seldinger technique: yes Laterality: left Site: radial artery Line secured: Tegaderm and tape Results: good waveform and good blood return Number of attempts: 2 Assessment: Events: patient tolerated procedure well with no complications us Gosia Wilkins MD PhD ANESTHESIA ORDERABLES Final Result * (ABNORMAL) POCT heparin/ACT CPB (05/21/2025 1:04 AM CDT) [facility] Heparin POC 3.4 units/mL ACT, CPB 559(H) 112 - [address] [facility] Blood 05/21/2025 1:04 AM CDT 05/21/2025 1:04 AM CDT us Zev Cowart MD PhD LAB POCT ORDERABLES - D EVICE Final Result [facility] [place] [address] * (ABNORMAL) POC Blood Gas and Chemistries, Arterial - (05/21/2025 1:04 AM CDT) pH, Art POC 7.32(L) 7.35 - 7.45 pCO2, Art POC 48(H) 35 - 45 mmHg [facility] pO2, Art POC 188(H) 83 - 108 mmHg [facility] Na, POC 140 135 - 145 mmol/[facility] K POC 3.1(L) 3.3 - 4.9 mmol/L [facility] Comment: Interpretive Data Not all point of care methods assess for hemolysis. Confirm with instrument and retest K+ if not consistent with clinical signs and symptoms. Current Interpretive Data was last revised on 2024. Cl, POC 101 97 - 110 mmol/L [facility] Ionized Ca, POC 4.88 4.50 - 5.10 mg/dL [facility] Glucose, POC 255(H) 70 - 199 mg/dL [facility] Lactate POC 2.3(H) 0.7 - 2.0 mmol/L [facility] SO2 (sameer) arterial 100(H) 90 - 95 % [facility] Base excess, POC -1.6 mmol/L [facility] HCO3, Art POC 25 20 - 30 mmol/L [facility] Hct, POC 28.0(L) 41.4 - 51.6 % [facility] Total Hb, POC 9.4(L) 13.8 - 17.2 g/dL [facility] Blood 05/21/2025 1:04 AM CDT 05/21/2025 1:04 AM CDT Zev Cowart MD PhD LAB POCT ORDERABLES - D RISHI Final Result [facility] [place] [address] * (ABNORMAL) POC Blood Gas and Chemistries, Arterial - (05/21/2025 12:48 AM CDT) pH, Art POC 7.40 7.35 - 7.45 pCO2, Art POC 39 35 - 45 mmHg [facility] pO2, Art POC 254(H) 83 - [address] [facility] Na, POC 140 135 - 145 mmol/L [facility] K POC 3.9 3.3 - 4.9 mmol/L [facility] Comment: Interpretive Data Not all point of care methods assess for hemolysis. Confirm with instrument and retest K+ if not consistent with clinical signs and symptoms. Current Interpretive Data was last revised on 2024. Cl, POC 101 97 - 110 mmol/L [facility] Ionized Ca, POC 4.68 4.50 - 5.10 mg/dL [facility] Glucose, POC 261(H) 70 - 199 mg/dL [facility] Lactate POC 2.2(H) 0.7 - 2.0 mmol/L [facility] SO2 (sameer) arterial 100(H) 90 - 95 % [facility] Base excess, POC -0.5 mmol/L [facility] HCO3, Art POC 24 20 - 30 mmol/L [facility] Hct, POC 29.0(L) 41.4 - 51.6 % [facility] Total Hb, POC 9.8(L) 13.8 - 17.2 g/dL [facility] Blood 05/21/2025 12:4 8 AM CDT 05/21/2025 12:48 AM CDT Zev Cowart MD PhD LAB POCT ORDERABLES - D EVICE Final Result Performing Organization Address [facility]/ZIP Co de Phone Number [facility] [place] [address] * (ABNORMAL) POCT heparin/ACT CPB (05/21/2025 12:44 AM CDT) Heparin POC 4.1 units/mL ACT, CPB 529(H) 112 - [address] [facility] Blood 05/21/2025 12:4 4 AM CDT 05/21/2025 12:44 AM CDT Zev Cowart MD PhD LAB POCT ORDERABLES - D EVICE Final Result Performing Organization Address City/[facility]/ZIP Co de Phone Number [facility] [place] [address] * (ABNORMAL) POC Blood Gas and Chemistries, Arterial - (05/21/2025 12:31 AM CDT) pH, Art POC 7.42 7.35 - 7.45 pCO2, Art POC 39 35 - 45 mmHg [facility] pO2, Art POC 180(H) 83 - 108 mmHg [facility] Na, POC 140 135 - 145 mmol/L [facility] K POC 3.7 3.3 - 4.9 mmol/L [facility] Comment: Interpretive Data Not all point of care methods assess for hemolysis. Confirm with instrument and retest K+ if not consistent with clinical signs and symptoms. Current Interpretive Data was last revised on 2024. Cl, POC 99 97 - 110 mmol/L [facility] Ionized Ca, POC 4.91 4.50 - 5.10 mg/dL [facility] Glucose, POC 264(H) 70 - 199 mg/dL [facility] Lactate POC 1.9 0.7 - 2.0 mmol/L [facility] SO2 (sameer) arterial 100(H) 90 - 95 % [facility] Base excess, POC 0.8 mmol/L [facility] HCO3, Art POC 25 20 - 30 mmol/L [facility] Hct, POC 36.0(L) 41.4 - 51.6 % [facility] Total Hb, POC 11.9(L) 13.8 - 17.2 g/dL [facility] Blood 05/21/2025 12:3 1 AM CDT 05/21/2025 12:31 AM CDT us Zev Cowart MD PhD LAB POCT ORDERABLES - D EVICE Final Result [facility] [place] [address] * (ABNORMAL) POCT heparin/ACT CPB (05/21/2025 12:30 AM CDT) [facility]ologist [facility] Heparin POC 4.1 units/mL ACT, CPB 450(H) 112 - [address] [facility] Blood 05/21/2025 12:3 0 AM CDT 05/21/2025 12:30 AM CDT Zev Cowart MD PhD LAB POCT ORDERABLES - D EVICE Final Result Performing Organization Address [facility] Co de Phone Number [facility] [place] [address] * POCT heparin dose response, CPB (05/20/2025 11:48 PM CDT) Baseline ACT POC 146 112 - 174 sec Heparin dose response slope POC 103 60 - [address] [facility] Projected Heparin Concentration POC 1.0 units/mL [facility] Blood 05/20/2025 11:4 8 PM CDT 05/20/2025 11:48 PM CDT Zev Cowart MD PhD LAB POCT ORDERABLES - D EVICE Final Result Performing Organization Address [facility] [place] [address] * (ABNORMAL) POC Blood Gas and Chemistries, Arterial - (05/20/2025 11:46 PM CDT) pH, Art POC 7.50(H) 7.35 - 7.45 pCO2, Art POC 35 35 - [address] [facility] pO2, Art POC 292(H) 83 - [address] [facility] Na, POC 137 135 - 145 mmol/L [facility] K POC 4.0 3.3 - 4.9 mmol/L [facility] Comment: Interpretive Data Not all point of care methods assess for hemolysis. Confirm with instrument and retest K+ if not consistent with clinical signs and symptoms. Current Interpretive Data was last revised on 2024. Cl, POC 103 97 - 110 mmol/L [facility] Ionized Ca, POC 4.81 4.50 - 5.10 mg/dL [facility] Glucose, POC 173 70 - 199 mg/dL [facility] Lactate POC 1.3 0.7 - 2.0 mmol/L [facility] SO2 (sameer) arterial 100(H) 90 - 95 % [facility] Base excess, POC 4.1 mmol/L [facility] HCO3, Art POC 27 20 - 30 mmol/L [facility] Hct, POC 36.0(L) 41.4 - 51.6 % [facility] Total Hb, POC 12.0(L) 13.8 - 17.2 g/dL [facility] Blood 05/20/2025 11:4 6 PM CDT 05/20/2025 11:46 PM CDT us Zev Cowart MD PhD LAB POCT ORDERABLES - D EVICE Final Result [facility] [place] [address] * MS AN PROCEDURE PLACEHOLDER (05/20/2025 11:24 PM CDT) Anatomical Region Laterality Modality Other Narrative 05/20/2025 11:24 PM CDT Gosia Wilkins MD PhD 05/27/2025 7:34 AM DIANNE Date/time: Staff: Performed by: Anesthesiologist: Gosia Wilkins MD PhD Preprocedure checklist: patient identified, procedure contraindications assessed, procedure consent, risks, benefits and alternatives discussed, monitors and equipment checked, timeout performed and DIANNE probe inserted into esophagus using lubricating jelly General procedure Information: Reason for procedure/indications: assessment of ascending aorta, assessment of surgical repair, hemodynamic instability and hemodynamic monitoring Performed: personally Procedure performed at surgeon's request: yes Results discussed with surgeon: yes Images submitted to archive: yes Patient location: OR Intubated: yes Bite blocked placed: yes Probe Insertion: easy Complications: no Probe type: adult Modalities: 2D imaging, continuous wave Doppler, pulsed wave Doppler and color Doppler DIANNE machine number: 6 Billing information: Physician requesting echo: Addy Tapia MD CPT code: DIANNE placement and diagnostic exam, non-congenital (64228) ICD code(s) for medical necessity: Z94.1 - Heart transplant status Echocardiographic and doppler measurements: Ventricles: Left ventricle: Cavity size: moderately dilated Hypertrophy: Yes Thrombus: No Global function: severely decreased LVEF%: 20-30 Right ventricle: Cavity size: moderately dilated Hypertrophy: no Thrombus: No Global function: moderately decreased Interventricular septum: normal Regional function: 1- Basal anteroseptal: hypokinetic 2- Basal anterior: hypokinetic 3- Basal anterolateral: hypokinetic 4- Basal inferolateral: hypokinetic 5- Basal inferior: hypokinetic 6- Basal inferoseptal: hypokinetic 7- Mid anteroseptal: hypokinetic 8- Mid anterior: hypokinetic 9- Mid anterolateral: hypokinetic 10- Mid inferolateral: hypokinetic 11- Mid inferior: hypokinetic 12- Mid inferoseptal: hypokinetic 13- Apical anterior: hypokinetic 14- Apical lateral: hypokinetic 15- Apical inferior: hypokinetic 16- Apical septal: hypokinetic 17- [place]: hypokinetic Valves: Aortic Valve: Annulus: normal Leaflet morphology: normal Leaflet motion: normal Stenosis: none Regurgitation: none Mitral valve: Annulus: calcified Leaflet morphology anterior: thickened and calcified Leaflet morphology posterior: thickened and calcified Leaflet motion anterior: normal Leaflet motion posterior: normal Stenosis: none Regurgitation: moderate Tricuspid valve: Annulus: normal Leaflet morphology: normal Leaflet motion: normal Stenosis: none Regurgitation: severe Pulmonic valve: Annulus: normal Stenosis: none Regurgitation: absent Aorta: Ascending aorta: Size: normal Dissection: no Aortic arch: Size: normal Dissection: no Descending aorta: Size: normal Dissection: no Atria: Right atrium: Size: dilated Spontaneous echo contrast: No Thrombus: no Left atrium: Size: dilated Spontaneous echo contrast: No Thrombus: no Left atrial appendage: normal Interatrial septum: normal Diastolic function and other findings: Diastolic function: grade III dysfunction Pericardium: normal Left pleural effusion: small effusion Right pleural effusion: normal Pre-procedure DIANNE exam summary: Exam performed under general anesthesia. Epinephrine 0.03 mcg/kg/min. No mechanical support. There is severe biventricular dysfunction with global hypokinesis. The aortic valve is trileaflet and opens well. There is no aortic stenosis or regurgitation. The mitral valve annulus is calcified and dilated. There is also calcification of the papillary heads. There is resultant moderate mitral regurgitation. No mitral stenosis. There is severe tricuspid regurgitation without stenosis. No pulmonic valvulopathy noted. The IAS appears intact. The aorta is normal in all imaged segments, without dissection or aneurysm. Postprocedure (follow-up) DIANNE exam: LV: normal systolic function RV: normal systolic function Interventricular septum: unchanged Aortic valve: normal Pulmonic valve: normal Tricuspid valve: moderate TR and mild TR Atria: unchanged Aorta: unchanged Pericardium: normal Left pleural: normal Right pleural: normal Postprocedure (follow-up) DIANNE exam comments: Exam performed under general anesthesia. Patient is s/p orthotopic heart transplant. Dobutamine at 5 mcg/kg/min. Inhaled nitric oxide at 20 ppm. CI 4.2 L/min/m2 by thermodilution. Patient is being paced DDD at 110 bpm. LV is normal size with normal systolic function, in fact, LV is hyperdynamic. RV is normal size with hyperdynamic function. There is LV and RV hypertrophy. The aortic valve is trileaflet with normal opening of all leaflets. There is no aortic stenosis or regurgitation. The mitral valve appears normal with normal opening of the leaflets. There is trivial mitral regurgitation without mitral stenosis. There is a pulmonary artery catheter in place across the tricuspid and pulmonic valves. There is mild-moderate tricuspid regurgitation without stenosis. There is no pulmonic valvulopathy. No PFO is noted on color Doppler. Aorta appears normal in all imaged segments. No changes on chest closure. CI 5.23 L/min/m2. Attestation Statement: By signing this report the attending anesthesiologist certifies that he or she has personally reviewed and interpreted the echocardiogram and has reviewed and or edited and agrees with the written comments contained within the report. Gosia Wilkins MD PhD ANESTHESIA ORDERABLES Edited Result - Final * MS AN ELECTIVE ENDOTRACHEAL AIRWAY, MS AN PROCEDURE PLACEHOLDER (05/20/2025 11:19 PM CDT) Narrative Gosia Wilkins MD PhD - 05/20/2025 11:19 PM CDT Gosia Wilkins MD PhD 05/20/2025 11:19 PM Airway Patient location: OR Urgency: elective Indications for airway management: anesthesia Difficult airway: no Staff: Placed by: Anesthesiologist: Gosia Wilkins MD PhD Emergent airway documentation: Risks and benefits discussed: yes Consent obtained: yes Consent given by: patient Airway prep: Preoxygenated: yes Patient position: sniffing Mask difficulty assessment: 0 - not attempted Spontaneous ventilation during airway: absent Sedation level during airway: GA Final airway details: Final airway type: endotracheal airway Tube type: ETT ETT size: 8.0 mm Cuffed: yes Technique used for successful ETT placement: video laryngoscopy Insertion site: oral Video blade type: Hunter Blade size: 3 Cormack-Lehane (direct): grade I - full view of glottis Cormack-Lehane (video): grade IIa - partial view of glottis Cuff volume: 8 mL Cuff inflated with: air ETT to teeth: 23 cm Placement verified by: auscultation and CO2 detection Airway secured with: silk tape Number of attempts: 1 Ventilation between attempts: noneno us Gosia Wilkins MD PhD ANESTHESIA ORDERABLES Final Result * DIANNE Add-On For OR (05/20/2025 9:15 PM CDT) BSA 2.04 m2 [facility] PROSOLV_CARDIORE PORT_CONS SCIMAGE Narrative [facility] PROSOLV_CARDIOREPORT_CONS SCIMAGE - 05/20/2025 9:15 PM CDT Procedure Auto Finalized by Rule: BW CV DIANNE DURING CASE OR Please see the Anesthesiologist's Procedure Note for the results. us Gosia Wilkins MD PhD CV ECHO PROCEDURES Fi nal Result [facility] PROSOLV_CARDIOREPORT_CONS SCIMAGE * Prepare plasma: 4 Units (05/20/2025 9:12 PM CDT) Product code [id number] Unit Number [id number] 8-G [facility] Product Blood Type OPOS [facility] Dispense Status RETURNED [facility] Product code [id number] [facility] Unit Number [id number] 3-Q [facility] Product Blood Type OPOS [facility] Dispense Status RETURNED [facility] Product code [id number] [facility] Unit Number [id number] 5-N [facility] Product Blood Type OPOS [facility] Dispense Status RETURNED [facility] Product code [id number] [facility] Unit Number [id number] 1-Y [facility] Product Blood Type [facility] Blood Venous blood specimen / Unknown 05/20/2025 9:12 PM CDT 05/20/2025 9:15 PM CDT Narrative D[facility] MARIA ARANDA - 05/21/2025 6:22 AM CDT Date required:-[id number] FFP # of Units:-4-Units Reasons:-Immediate need for surgical intervention us Gosia Wilkins MD PhD BLOOD BANK PRODUCT OR DERABLES Final Result Performing Organization Address [facility] Co de Phone Number [facility] [place] [address] * Prepare RBC: 10 Units (05/20/2025 9:12 PM CDT) [facility] Product code [id number] [facility] Unit Number [id number] 5-C [facility] Product Blood Type OPOS [facility] Dispense Status RETURNED [facility] Product code [id number] Unit Number [id number] 4-A [facility] Product Blood Type OPOS [facility] Dispense Status [facility] Blood 05/20/2025 9:12 PM CDT 05/20/2025 9:15 PM CDT Narrative [facility] - 05/21/2025 6:22 AM CDT Are special requirements needed? (All products are leukoreduced and CMV- safe)- >No Date required:-20250520 LRRBC # of [id number] Reasons:-Intra-op transfusion} us Gosia Wilkins MD PhD BLOOD BANK PRODUCT OR DERABLES Final Result Performing Organization Address [facility] de Phone Number [facility] [place] [address] * Oxyhemoglobin, pulmonary artery (05/20/2025 4:24 PM CDT) Oxyhemoglobin, PA 54.9 % Comment: Interpretive Data No reference range established. Current interpretive data was last revised 2020. Blood 05/20/2025 4:24 PM CDT 05/20/2025 4:33 PM CDT us Bar Gamble MD LAB BLOOD ORDERABLES Final R esult Performing Organization Address City/[facility] Co de Phone Number [facility] [place] [address] * (ABNORMAL) Hemoglobin total, pulmonary artery (05/20/2025 4:24 PM CDT) Hemoglobin total, PA 18.5(H) 13.0 - 17.5 g/dL Blood 05/20/2025 4:24 PM CDT 05/20/2025 4:33 PM CDT us Bar Gamble MD LAB BLOOD ORDERABLES Final R esult Performing Organization Address City/[facility] Co de Phone Number [facility] [place] [address] * (ABNORMAL) eGFR (05/20/2025 4:24 PM CDT) eGFR 57(L) >=60 mL/min/1. 73 m2 Comment: Interpretive Data Reference Interval Normal >/= 90 mL/min/1.73m2 Mildly decreased* 60 - 89 mL/min/1.73m2 Mildly to moderately decreased 45 - 59 mL/min/1.73m2 Moderately to severely decreased 30 - 44 mL/min/1.73m2 Severely decreased 15 - 29 mL/min/1.73m2 Kidney Failure < 15 mL/min/1.73m2 *Relative to young adult level Estimated glomerular filtration rate is determined by the 2020 CKD-EPI equation recommended by the National Kidney Foundation (A Unifying Approach to GFR Estimation: Recommendations of the NKF-ASK Task Force on Reassessing the Inclusion of Race in Diagnosing Kidney Disease, JASN 2020). The CKD-EPI equation should not be used for patients with unstable renal function and has not been validated in children and those over 70. Current interpretive data was last reviewed 2021. Blood 05/20/2025 4:24 PM CDT 05/20/2025 4:40 PM CDT us Bar Gamble MD LAB BLOOD ORDERABLES Final R esult Performing Organization Address [facility] Co de Phone Number [facility] [place] [address] * Lactate, whole blood (05/20/2025 4:24 PM CDT) Lactate, bld 1.0 0.7 - 2.0 mmol/L Blood 05/20/2025 4:24 PM CDT 05/20/2025 4:33 PM CDT Bar Gamble MD LAB BLOOD ORDERABLES Final R esult Performing Organization Address [facility] Co de Phone Number [facility] [place] [address] * Magnesium (05/20/2025 4:24 PM CDT) Magnesium 2.5 1.4 - 2.5 mg/dL Blood 05/20/2025 4:24 PM CDT 05/20/2025 4:40 PM CDT Bar Gamble MD LAB BLOOD ORDERABLES Final R esult Performing Organization Address [facility] Co de Phone Number [facility] [place] [address] * (ABNORMAL) Basic metabolic panel (05/20/2025 4:24 PM CDT) [facility] Sodium 140 135 - 145 mmol/L Potassium, pl 3.9 3.3 - 4.9 mmol/L [facility] Chloride 98 97 - 110 mmol/L [facility] CO2 29 22 - 32 mmol/L [facility] Anion gap 13 2 - 15 mmol/L [facility] BUN 42(H) 6 - 25 mg/dL [facility] Creatinine 1.41(H) 0.80 - 1.30 mg/dL [facility] Glucose 114 70 - 199 mg/dL [facility] Comment: Interpretive Data Fasting glucose >/= 126 mg/dl is diagnostic for diabetes. Fasting is defined as no caloric intake for at least 8 hours. Fasting glucose between 100 mg/dl to 125 mg/dl is diagnostic of prediabetes. In a patient with classic symptoms of hyperglycemia or hyperglycemic crisis, a random glucose >/= 200 mg/dl is diagnostic for diabetes. In the absence of unequivocal hyperglycemia, results should be confirmed by repeat testing. The classification and Diagnosis of Diabetes Diabetes Care 2021; 46: S19-S40. Current interpretive data was last revised 2022. Calcium 9.8 8.5 - 10.3 mg/dL [facility] Blood 05/20/2025 4:24 PM CDT 05/20/2025 4:40 PM CDT us Bar Gamble MD LAB BLOOD ORDERABLES Final R esult [facility] [place] [address] * Respiratory pathogen panel Nasopharyngeal (05/20/2025 8:15 AM CDT) [facility] Influenza A RNA Not Detected Not Detected Influenza B RNA Not Detected Not Detected [facility] RSV RNA Not Detected Not Detected [facility] COVID-19 RNA Not Detected Not Detected [facility] Coronavirus 229E RNA Not Detected Not Detected [facility] Coronavirus HKU1 RNA Not Detected Not Detected [facility] Coronavirus NL63 RNA Not Detected Not Detected [facility] Coronavirus OC43 RNA Not Detected Not Detected [facility] Adenovirus DNA Not Detected Not Detected [facility] Metapneumovirus RNA Not Detected Not Detected [facility] Rhinovirus/Enterov irus RNA Not Detected Not Detected [facility] Parainfluenza 1 RNA Not Detected Not Detected [facility] Parainfluenza 2 RNA Not Detected Not Detected [facility] Parainfluenza 3 RNA Not Detected Not Detected [facility] Parainfluenza 4 RNA Not Detected Not Detected [facility] B. pertussis DNA Not Detected Not Detected [facility] B. parapertussis DNA Not Detected Not Detected [facility] C. pneumoniae DNA Not Detected Not Detected [facility] M. pneumoniae DNA Not Detected Not Detected [facility] Nasopharyngeal 05/20/2025 8: 15 AM CDT 05/20/2025 8:30 AM CDT Narrative [facility] - 05/20/2025 9:25 AM CDT Is the Patient experiencing symptoms consistent with COVID?->Unknown Surveillance testing for transplant patient?->Yes Interpretive Data The [employer] FilmArray Respiratory Panel (RP2.1) assay is a multiplexed real-time PCR based nucleic acid test capable of simultaneous qualitative detection and identification of multiple respiratory viral and bacterial nucleic acids, including SARS Coronavirus 2 (the causative agent of COVID-19). The following bacteria, viruses and virus subtypes can be identified using the FilmArray RP2.1 assay: Bordetella pertussis, Bordetella parapertussis, Chlamydia pneumoniae, Mycoplasma pneumoniae, Adenovirus, SARS Coronavirus 2, seasonal coronaviruses (Coronavirus HKU1, Coronavirus NL63, Coronavirus 229E, and Coronavirus OC43), Influenza A, Influenza A subtype H1, Influenza A subtype H3, Influenza A subtype 2009 H1, Influenza B, Metapneumovirus, Parainfluenza 1, Parainfluenza 2, Parainfluenza 3, Parainfluenza 4, RSV, Rhinovirus/Enterovirus. Due to the genetic similarity between human Rhinovirus and Enterovirus, the FilmArray RP2.1 assay cannot reliably differentiate them. Coronavirus OC43 may cross-react with some isolates of Coronavirus HKU1. A dual positive result may be due to cross-reactivity or may indicate a co- infection. The detection and identification of specific viral and bacterial nucleic acids from individuals exhibiting signs and symptoms of a respiratory infection aids in the diagnosis of respiratory infection if used in conjunction with other clinical and epidemiological information. The results of this test should not be used as the sole basis for diagnosis, treatment, or other management decisions. Negative results in the setting of a respiratory illness may be due to infection with pathogens that are not detected by this test. Positive results do not rule out infection/co-infection with other organisms. The agent(s) detected by the FilmArray RP2.1 may not be the definite cause of disease. Additional testing (lab, imaging, etc.) may be necessary when evaluating a patient with possible respiratory tract infection. The FilmArray RP2.1 assay has FDA clearance for testing of [employer] swabs. The performance of additional specimen types has been assessed by the performing laboratory. The performance characteristics of this assay have been determined by [facility]ious [facility]. Current interpretive data was last revised on 22. us Addy Tapia MD LAB MICROBIOLOGY - GENER AL ORDERABLES Final Result [facility] [place] [address] * Oxyhemoglobin, pulmonary artery (05/20/2025 5:07 AM CDT) Oxyhemoglobin, PA 51.0 % Comment: Interpretive Data No reference range established. Current interpretive data was last revised 2020. Blood 05/20/2025 5:07 AM CDT 05/20/2025 5:23 AM CDT us Bar Gamble MD LAB BLOOD ORDERABLES Final R esult [facility] [place] [address] * (ABNORMAL) Hemoglobin total, pulmonary artery (05/20/2025 5:07 AM CDT) Hemoglobin total, PA 11.3(L) 13.0 - 17.5 g/dL Blood 05/20/2025 5:07 AM CDT 05/20/2025 5:23 AM CDT Bar Gamble MD LAB BLOOD ORDERABLES Final R esult Performing Organization Address [facility] Co de Phone Number [facility] [place] [address] * (ABNORMAL) eGFR (05/20/2025 5:07 AM CDT) eGFR 53(L) >=60 mL/min/1. 73 m2 Comment: Interpretive Data Reference Interval Normal >/= 90 mL/min/1.73m2 Mildly decreased* 60 - 89 mL/min/1.73m2 Mildly to moderately decreased 45 - 59 mL/min/1.73m2 Moderately to severely decreased 30 - 44 mL/min/1.73m2 Severely decreased 15 - 29 mL/min/1.73m2 Kidney Failure < 15 mL/min/1.73m2 *Relative to young adult level Estimated glomerular filtration rate is determined by the 2020 CKD-EPI equation recommended by the National Kidney Foundation (A Unifying Approach to GFR Estimation: Recommendations of the NKF-ASK Task Force on Reassessing the Inclusion of Race in Diagnosing Kidney Disease, JASN 2020). The CKD-EPI equation should not be used for patients with unstable renal function and has not been validated in children and those over 70. Current interpretive data was last reviewed 2021. Blood 05/20/2025 5:07 AM CDT 05/20/2025 5:29 AM CDT us Bar Gamble MD LAB BLOOD ORDERABLES Final R esult Performing Organization Address City/[facility]/ZIP Co de Phone Number [facility] [place] [address] * Lactate, whole blood (05/20/2025 5:07 AM CDT) Lactate, bld 0.7 0.7 - 2.0 mmol/L Blood 05/20/2025 5:07 AM CDT 05/20/2025 5:23 AM CDT us Zev Cowart MD PhD LAB BLOOD ORDERABLES Fi nal Result Performing Organization Address [facility] Co de Phone Number [facility] [place] [address] * (ABNORMAL) CBC without differential (05/20/2025 5:07 AM CDT) WBC 7.01 3.80 - 9.90 K/cumm Hgb 10.6(L) 13.0 - 17.5 g/dL [facility] Hct 31.8(L) 38.9 - 50.3 % [facility] Plt 197 150 - 400 K/cumm [facility] MPV 11.8 9.1 - 12.[address] [facility] RBC 3.85(L) 4.30 - 5.80 M/cumm [facility] MCV 82.6 81.3 - 96.[address] [facility] MCH 27.5 27.1 - 33.[address] [facility] MCHC 33.3 32.3 - 35.7 g/dL [facility] RDW CV 15.1(H) 11.1 - 14.9 % [facility] RDW SD 45.8 35.7 - 48.[address] [facility] NRBC abs 0.00 0.00 - 0.01 K/cumm [facility] Blood 05/20/2025 5:07 AM CDT 05/20/2025 5:29 AM CDT us Bar Gamble MD LAB BLOOD ORDERABLES Final R esult Performing Organization Address City/[facility]/ZIP Co de Phone Number [facility] [place] [address] * Magnesium (05/20/2025 5:07 AM CDT) Magnesium 2.4 1.4 - 2.5 mg/dL Blood 05/20/2025 5:07 AM CDT 05/20/2025 5:29 AM CDT Bar Gamble MD LAB BLOOD ORDERABLES Final R esult Performing Organization Address [facility] Co de Phone Number [facility] [place] [address] * (ABNORMAL) Hepatic function panel (05/20/2025 5:07 AM CDT) Bilirubin, total 0.7 0.1 - 1.2 mg/dL Bilirubin, direct 0.4(H) 0.1 - 0.3 mg/dL [facility] Protein, pl 6.3(L) 6.5 - 8.5 g/dL [facility] Albumin 3.8 3.5 - 5.0 g/dL [facility] Alk phos 263(H) 40 - 130 Units/L [facility] ALT 18 7 - 55 Units/L [facility] AST 19 10 - 50 Units/L [facility] Blood 05/20/2025 5:07 AM CDT 05/20/2025 5:29 AM CDT Bar Gamble MD LAB BLOOD ORDERABLES Final R [facility] Performing Organization Address [facility] de Phone Number [facility] [place] [address] * (ABNORMAL) Basic metabolic panel (05/20/2025 5:07 AM CDT) Sodium 140 135 - 145 mmol/L Potassium, pl 4.0 3.3 - 4.9 mmol/L [facility] Chloride 99 97 - 110 mmol/L [facility] CO2 29 22 - 32 mmol/L [facility] Anion gap 12 2 - 15 mmol/L [facility] BUN 41(H) 6 - 25 mg/dL [facility] Creatinine 1.50(H) 0.80 - 1.30 mg/dL [facility] Glucose 113 70 - 199 mg/dL [facility] Comment: Interpretive Data Fasting glucose >/= 126 mg/dl is diagnostic for diabetes. Fasting is defined as no caloric intake for at least 8 hours. Fasting glucose between 100 mg/dl to 125 mg/dl is diagnostic of prediabetes. In a patient with classic symptoms of hyperglycemia or hyperglycemic crisis, a random glucose >/= 200 mg/dl is diagnostic for diabetes. In the absence of unequivocal hyperglycemia, results should be confirmed by repeat testing. The classification and Diagnosis of Diabetes Diabetes Care 2021; 46: S19-S40. Current interpretive data was last revised 2022. Calcium 9.4 8.5 - 10.3 mg/dL [facility] Blood 05/20/2025 5:07 AM CDT 05/20/2025 5:29 AM CDT us Bar Gamble MD LAB BLOOD ORDERABLES Final R esult Performing Organization Address City/[facility]/ZIP Co de Phone Number [facility] [place] [address] * Antibody identification (05/20/2025 3:27 AM CDT) Antibody ID 1 Anti-CD38 Comment:Panreactive -CD38 on reagent RBCs reacting with anti-CD38 therapy. DTT treatment removes cell surface CD38 and allows detection of common clinically significant antibodies except those against [place] antigens. TRANSFUSION 2015;55;[id number] Blood 05/20/2025 3:27 AM CDT 05/20/2025 3:27 AM CDT us Zev Cowart MD PhD LAB BLOOD BANK TEST ORD ERABLES Final Result Performing Organization Address City/[facility]/ZIP Co de Phone Number [facility] [place] [address] * XR Chest 1 View (05/20/2025 3:25 AM CDT) Anatomical Region Laterality Modality Body, Chest N/A Digital Radiogra phy 05/20/2025 9:36 AM CDT Impressions 05/20/2025 9:36 AM CDT 1. 05/19/2025, 12:17 PM: Comparison is made to prior radiograph from the same date. Peripherally inserted central venous catheter tip overlies the superior vena cava. The [place] catheter is in the right lower lobe pulmonary artery. There are small bilateral pleural effusions with bibasilar atelectasis. No pneumonic consolidation or pneumothorax. Stable heart size. 2. 05/19/2025, 3:03 PM: Comparison is made to prior radiograph from the same date. There is no significant interval change. 3. 05/20/2025, 1:40 AM: Comparison is made to 05/19/2025. The [place] catheter has been retracted and now overlies the main pulmonary artery. 4. 05/20/2025, 3:22 AM:: Comparison is made to the prior examination from the same date. No significant interval change. Electronically signed by: Jamie Lugo M.D. Narrative 05/20/2025 9:36 AM CDT EXAMINATION: 1 view chest radiograph Procedure Note Jamie Lugo MD - 05/20/2025 EXAMINATION: 1 view chest radiograph IMPRESSION: 1. 05/19/2025, 12:17 PM: Comparison is made to prior radiograph from the same date. Peripherally inserted central venous catheter tip overlies the superior vena cava. The [place] catheter is in the right lower lobe pulmonary artery. There are small bilateral pleural effusions with bibasilar atelectasis. No pneumonic consolidation or pneumothorax. Stable heart size. 2. 05/19/2025, 3:03 PM: Comparison is made to prior radiograph from the same date. There is no significant interval change. 3. 05/20/2025, 1:40 AM: Comparison is made to 05/19/2025. The [place] catheter has been retracted and now overlies the main pulmonary artery. 4. 05/20/2025, 3:22 AM:: Comparison is made to the prior examination from the same date. No significant interval change. Electronically signed by: Jamie Lugo M.D. Zev Cowart MD PhD IMG XR PROCEDURES Final Result * Urinalysis reflex to microscopic and culture Urine (05/20/2025 2:28 AM CDT) Color, ur Straw Yellow Clarity, ur Clear Clear [facility] Specific gravity, ur 1.009 1.003 - 1.030 [facility] pH, urine 6.[address] [facility] Comment: Interpretive Data U rine pH is affected by diet, medications, systemic acid-base disturbances, and renal tubular function. pH may affect urinary stone formation. For example, urine pH below 6.0 may help reduce the tendency for calcium phosphate stones and pH greater than 6.0 may reduce the tendency for uric acid stone formation. Source: [facility] [place] Current Interpretive Data was last revised on 2017 Protein, ur ql Negative Negative [facility] Glucose, ur ql Negative Negative [facility] Ketones, ur Negative Negative [facility] Bilirubin, ur Negative Negative [facility] Blood, ur Negative Negative [facility] Urobilinogen, ur <2.0 <2.0 mg/dL [facility] Nitrite, ur Negative Negative [facility] Leukocyte esterase, ur Negative Negative [facility] UA reflex comment Reflex conditions for microscopic UA and culture not met. [facility] Urine 05/20/2025 2:28 AM CDT 05/20/2025 2:40 AM CDT Zev Cowart MD PhD LAB MICROBIOLOGY - GENE RAL ORDERABLES Final Result [facility] [place] [address] * Collection Task for HLA Antibody Screen (05/20/2025 2:02 AM CDT) HLA Antibody Screen by PRA Received Blood 05/20/2025 2:02 AM CDT 05/21/2025 7:22 AM CDT Zev Cowart MD PhD LAB BLOOD ORDERABLES Fi nal Result Performing Organization Address [facility] Co de Phone Number [facility] [place] [address] * Hepatitis C (HCV) RNA PCR, quantitative Blood (05/20/2025 2:02 AM CDT) [facility] HCV RNA result Not Detected [facility] Comment: The quantifiable range of this assay is 15 IU/mL to 100,000,000 IU/mL (1.18 log IU/mL to 8.00 log IU/mL). Testing was performed by the CARLOS 6800 HCV Test ([employer] Testing performed at [facility] Current Interpretive Data was last revised on 2021 Blood 05/20/2025 2:02 AM CDT 05/20/2025 2:23 AM CDT Zev Cowart MD PhD LAB MICROBIOLOGY - GENE RAL ORDERABLES Final Result Performing Organization Address [facility] Co de Phone Number [facility] [place] [address] [facility] * HLA Crossmatch Report (05/20/2025 2:01 AM CDT) Zev Cowart MD PhD LAB BLOOD ORDERABLES nal Result * HLA Crossmatch, ALLO (05/20/2025 2:01 AM CDT) Blood 05/20/2025 2:01 AM CDT 05/21/2025 6:44 AM CDT Narrative [facility] - 05/21/2025 6:44 AM CDT Zev Cowart MD PhD LAB BLOOD ORDERABLES Fi nal Result Performing Organization Address [facility] Co de Phone Number [facility] * HLA Antibody Screen by PRA or SAB per Schedule (Class I and Class II) (05/20/2025 2:01 AM CDT) Blood 05/20/2025 2:01 AM CDT Narrative [facility] - COLUMNIST/COMMENTATOR Sample received in lab. Single Antigen Antibody Screen ordered. Zev Cowart MD PhD LAB BLOOD ORDERABLES Fi nal Result Performing Organization Address City/[facility]/ZIP Co de Phone Number [facility] * (ABNORMAL) eGFR (05/20/2025 2:01 AM CDT) eGFR 52(L) >=60 mL/min/1. 73 m2 Comment: Interpretive Data Reference Interval Normal >/= 90 mL/min/1.73m2 Mildly decreased* 60 - 89 mL/min/1.73m2 Mildly to moderately decreased 45 - 59 mL/min/1.73m2 Moderately to severely decreased 30 - 44 mL/min/1.73m2 Severely decreased 15 - 29 mL/min/1.73m2 Kidney Failure < 15 mL/min/1.73m2 *Relative to young adult level Estimated glomerular filtration rate is determined by the 2020 CKD-EPI equation recommended by the National Kidney Foundation (A Unifying Approach to GFR Estimation: Recommendations of the NKF-ASK Task Force on Reassessing the Inclusion of Race in Diagnosing Kidney Disease, JASN 2020). The CKD-EPI equation should not be used for patients with unstable renal function and has not been validated in children and those over 70. Current interpretive data was last reviewed 2021. Blood 05/20/2025 2:01 AM CDT 05/20/2025 2:20 AM CDT Zev Cowart MD PhD LAB BLOOD ORDERABLES Fi nal Result Performing Organization Address City/[facility]/ZIP Co de Phone Number [facility] [place] [address] * (ABNORMAL) Differential, auto (05/20/2025 2:01 AM CDT) Neutrophil abs 6.15 1.50 - 6.50 K/cumm Imm gran abs 0.02 0.00 - 0.10 K/cumm [facility] Lymphocyte abs 0.63(L) 0.80 - 3.30 K/cumm [facility] Monocyte abs 0.62 0.20 - 0.80 K/cumm [facility] Eosinophil abs 0.25 0.00 - 0.50 K/cumm [facility] Basophil abs 0.03 0.00 - 0.10 K/cumm [facility] Neutrophil pct 79.8 % [facility] Comment: Interpretive Data Percent cell count reference ranges are not reported, since discordance with absolute values may lead to misinterpretation of CBC data. Current Interpretive Data was last revised on 2018. Imm gran pct 0.3 % [facility] Comment: Interpretive Data Percent cell count reference ranges are not reported, since discordance with absolute values may lead to misinterpretation of CBC data. Current Interpretive Data was last revised on 2018. Lymphocyte pct 8.2 % [facility] Comment: Interpretive Data Percent cell count reference ranges are not reported, since discordance with absolute values may lead to misinterpretation of CBC data. Current Interpretive Data was last revised on 2018. Monocyte pct 8.1 % [facility] Comment: Interpretive Data Percent cell count reference ranges are not reported, since discordance with absolute values may lead to misinterpretation of CBC data. Current Interpretive Data was last revised on 2018. Eosinophil pct 3.2 % [facility] Comment: Interpretive Data Percent cell count reference ranges are not reported, since discordance with absolute values may lead to misinterpretation of CBC data. Current Interpretive Data was last revised on 2018. Basophil pct 0.4 % [facility] Comment: Interpretive Data Percent cell count reference ranges are not reported, since discordance with absolute values may lead to misinterpretation of CBC data. Current Interpretive Data was last revised on 2018. Blood 05/20/2025 2:01 AM CDT 05/20/2025 2:11 AM CDT us Zev Cowart MD PhD LAB BLOOD ORDERABLES Fi nal Result [facility] [place] [address] * HIV 1/2 Antibody plus p24 Antigen Blood (05/20/2025 2:01 AM CDT) [facility] HIV 1/2 ab + p24 ag Nonreactive Nonreactive Comment:Nonreactive for HIV- 1 antigen and HIV-1/HIV-2 antibodies. No laboratory evidence of HIV infection. If acute HIV infection is suspected, consider testing for HIV-1 RNA. Current interpretive data was last revised on 22. Blood 05/20/2025 2:01 AM CDT 05/20/2025 2:17 AM CDT Zev Cowart MD PhD LAB MICROBIOLOGY - GENE RAL ORDERABLES Final Result Performing Organization Address [facility] Co de Phone Number [facility] [place] [address] * (ABNORMAL) CMV, IgG Blood (05/20/2025 2:01 AM CDT) [facility] CMV IgG Positive( A) Negative Comment: Interpretive Data Negative - Individuals with negative CMV IgG results are presumed to not have had prior exposure or infection with CMV and are, therefore, considered susceptible to primary infection. Equivocal - Equivocal results may occur during acute infection or may be due to nonspecific binding reactions. Submit an additional sample for testing if clinically indicated. Positive - Indicates presence of detectable CMV IgG antibody. Results indicate past or recent CMV infection. Blood 05/20/2025 2:01 AM CDT 05/20/2025 2:17 AM CDT us Zev Cowart MD PhD LAB MICROBIOLOGY - GENE RAL ORDERABLES Final Result Performing Organization Address [facility] Co de Phone Number [facility] [place] [address] * HLA Antibody Screen - SAB (Class I and Class II) (05/20/2025 2:01 AM CDT) [facility] Class I Treatment EDTA [facility] Class I Dilution 1:1 [facility] Class I Tested Date 05/20/2025 [facility] Class I Result Negative [facility] Class I CPRA 0 [facility] Class II Treatment EDTA [facility] Class II Dilution 1:1 [facility] Class II Tested Date 05/20/2025 [facility] Class II Result Negative [facility] Class II CPRA 0 [facility] 05/20/2025 2:01 AM CDT 05/21/2025 7:34 AM CDT Narrative [facility] - 05/21/2025 7:34 AM CDT Single-antigen HLA antibody screen is performed on serum samples using a method developed and validated by the [facility] HLA laboratory based on an FDA-approved IVD kit (LABScreen Single-Antigen, [employer], [place], [place]). All patient serum samples are pretreated with EDTA before the screen to prevent complement interference. Additional serum treatments, such as adsorption and DTT treatment, may be performed as indicated. Interpretive comments: Low risk: MFI [id number]. Moderate risk: MFI [id number]. Increased risk: MFI >/= 5000. The presence of an antigen in two or more risk categories may indicate a mixed reactivity pattern among beads of multiple subtypes. Preformed donor-specific antibodies (DSA) with MFI above 2000 are predictive of positive cytotoxicity crossmatch (Hum Immunol 2010;71:268-73. Hum Immunol 2012;73:497- 604) and carry a higher risk of humoral rejection. For our solid-organ transplant programs, unacceptable antigens (UA) for transplant candidates are defined by MFI >/= 2000 with some exceptions. UA are listed at UNOS and used to generate calculated PRA (cPRA) rounded to the nearest integer. In the post-transplant setting, MFI values from donor-specific beads are listed in the DSA report to provide additional information. It is important to note that this test is approved as a qualitative test and the MFI values are not strictly linear. For platelet refractoriness: An empirical cutoff value of MFI >/= 2000 has been used in our center; a higher cutoff value such as 5000 may also be suitable for highly sensitized patients to prioritize the antigens to avoid. Testing performed at the [facility], [facility] [address], 5th floor, [place], [address]. [facility] # [id number]. Myrna Pendleton, Ph.D., Mobile Heavy Equipment Operator, HLA Laboratory Zach Bermudez M.D., Ph.D., Microstrategy Developer, [facility] Laboratory Dona Cota, Ph.D., CLIA Microstrategy Developer, [facility] Current methodology and interpretive comments last revised on 12/16/2022. Zev Cowart MD PhD LAB BLOOD ORDERABLES Fi nal Result Performing Organization Address City/[facility]/ZIP Co de Phone Number HISTOTRAC * (ABNORMAL) CBC with auto differential (05/20/2025 2:01 AM CDT) [facility] WBC 7.70 3.80 - 9.90 K/cumm Hgb 10.1(L) 13.0 - 17.5 g/dL [facility] Hct 30.8(L) 38.9 - 50.3 % [facility] Plt 187 150 - 400 K/cumm [facility] MPV 11.3 9.1 - 12.[address] [facility] RBC 3.69(L) 4.30 - 5.80 M/cumm [facility] MCV 83.5 81.3 - 96.[address] [facility] MCH 27.4 27.1 - 33.[address] [facility] MCHC 32.8 32.3 - 35.7 g/dL [facility] RDW CV 15.1(H) 11.1 - 14.9 % [facility] RDW SD 46.3 35.7 - 48.[address] [facility] NRBC abs 0.00 0.00 - 0.01 K/cumm [facility] Blood 05/20/2025 2:01 AM CDT 05/20/2025 2:11 AM CDT Zev Cowart MD PhD LAB BLOOD ORDERABLES Fi nal Result Performing Organization Address [facility]/ZIP Co de Phone Number [facility] [place] [address] * Hepatitis C antibody Blood (05/20/2025 2:01 AM CDT) Pathologist [facility] Hep C Ab Nonreactive Nonreactive Comment:Antibodies to HCV no t detected. Does NOT exclude the possibility of recent exposure to HCV. Current interpretive data was last revised on 22 Blood 05/20/2025 2:01 AM CDT 05/20/2025 2:17 AM CDT Zev Cowart MD PhD LAB MICROBIOLOGY - GENE RAL ORDERABLES Final Result [facility] [place] [address] * (ABNORMAL) Priscilla-Lewis virus (EBV) antibody panel Blood (05/20/2025 2:01 AM CDT) [facility] EBV nuclear Ab Positive(A) Negative Comment:Indicates the presen ce of detectable IgG antibody to EBV Nuclear Antigen. EBV VCA IgG Positive(A) Negative [facility] Comment:Indicates the presen ce of antibody; 90% of the adult population will have been infected with EBV sometime in the past. EBV VCA IgM Negative Negative [facility] Comment:No detectable IgM an tibody to EBV-VCA. A negative result indicates no current infection with EBV. If clinical suspicion of acute EBV infection is present, testing should be repeated after one week. EBV interp Past Infection [facility] Blood 05/20/2025 2:01 AM CDT 05/20/2025 2:17 AM CDT Zev Cowart MD PhD LAB MICROBIOLOGY - GENE RAL ORDERABLES Final Result [facility] [place] [address] * Hepatitis B core antibody, IgM Blood (05/20/2025 2:01 AM CDT) Pathologist [facility] Hep B core IgM Nonreactive Nonreactive Blood 05/20/2025 2:01 AM CDT 05/20/2025 2:17 AM CDT Zev Cowart MD PhD LAB MICROBIOLOGY - GENE RAL ORDERABLES Final Result Performing Organization Address [facility] Co de Phone Number [facility] [place] [address] * Hepatitis B core antibody, total Blood (05/20/2025 2:01 AM CDT) Pathologist [facility] Hep B core IgG/IgM Nonreactive Nonreactive Blood 05/20/2025 2:01 AM CDT 05/20/2025 2:17 AM CDT Zev Cowart MD PhD LAB MICROBIOLOGY - GENE RAL ORDERABLES Final Result Performing Organization Address [facility] [place] [address] * Toxoplasma gondii antibody, IgG Blood (05/20/2025 2:01 AM CDT) Pathologist [facility] Toxoplasma IgG Negative Negative Comment: Interpretive Data Negative - No detectable antibody. Equivocal - Presence of detectable antibody cannot be determined. Positive - Detectable level of antibody present. Current interpretive data was last revised on 2017. Blood 05/20/2025 2:01 AM CDT 05/20/2025 2:17 AM CDT Zev Cowart MD PhD LAB MICROBIOLOGY - GENE RAL ORDERABLES Final Result Performing Organization Address [facility] de Phone Number [facility] [place] [address] * Hepatitis B surface antibody (immune status) Blood (05/20/2025 2:01 AM CDT) Pathologist [facility] HBsAb (immune status) Nonreactive Comment:This result is consi stent with a lack of immunity to Hepatitis B Virus when used in the setting of routine screening. Current interpretative data was last revised on 22 Blood 05/20/2025 2:01 AM CDT 05/20/2025 2:17 AM CDT us Zev Cowart MD PhD LAB MICROBIOLOGY - GENE RAL ORDERABLES Final Result Performing Organization Address [facility] de Phone Number [facility] [place] [address] * Hepatitis B Surface Antigen Blood (05/20/2025 2:01 AM CDT) HepBsAg Nonreactive Nonreactive Blood 05/20/2025 2:01 AM CDT 05/20/2025 2:17 AM CDT us Zev Cowart MD PhD LAB MICROBIOLOGY - GENE RAL ORDERABLES Final Result Performing Organization Address [facility] Phone Number [facility] [place] [address] * (ABNORMAL) aPTT (05/20/2025 2:01 AM CDT) aPTT 75(H) 28 - 38 sec Comment: Interpretive Data Heparin therapeutic range: 66.0 - 100.0 seconds. Range based on correlation with therapeutic heparin activity range of 0.3 - 0.7 Units/mL. Current interpretive data was last revised on 2023. Blood 05/20/2025 2:01 AM CDT 05/20/2025 2:18 AM CDT us Zev Cowart MD PhD LAB BLOOD ORDERABLES Fi nal Result Performing Organization Address [facility] de Phone Number [facility] [place] [address] * (ABNORMAL) Protime-INR (05/20/2025 2:01 AM CDT) PT 17.4(H) 9.7 - 13.0 sec INR 1.60(H) 0.90 - 1.[address] [facility] Comment: Interpretive data Oral anticoagulant therapeutic ranges: Venous thromboembolism prophylaxis or treatment: 2.0-3.0 CARDIOLOGY Standard range: 2.0-3.0 High-intensity range: 2.5-3.5 Refer to indication-specific guidelines for appropriate target ranges for prosthetic heart valve replacement. Current interpretive data was last revised on 2019. Blood 05/20/2025 2:01 AM CDT 05/20/2025 2:18 AM CDT Zev Cowart MD PhD LAB BLOOD ORDERABLES Fi nal Result Performing Organization Address [facility] Co de Phone Number [facility] [place] [address] * (ABNORMAL) Type and screen (05/20/2025 2:01 AM CDT) Pathologist [facility] Poppy, indirect Positive(A) ABO Rh O Positive [facility] Blood 05/20/2025 2:01 AM CDT 05/20/2025 2:24 AM CDT Narrative [facility] - 05/20/2025 3:27 AM CDT Has the patient had Daratumumab or Isatuximab in the past 6 months?->Unknown Zev Cowart MD PhD LAB BLOOD BANK TEST ORD ERABLES Final Result Performing Organization Address [facility] Co de Phone Number [facility] [place] [address] * (ABNORMAL) Hemoglobin A1c (05/20/2025 2:01 AM CDT) Pathologist [facility] Hgb A1C 6.8(H) 4.0 - 5.6 % Estimated Average Glucose 148 mg/dL [facility] Comment: The ADA recommends reporting an estimated Average Glucose (eAG) with all Hemoglobin A1c results using the equation derived from a study of 507 normal and diabetic adults. Minority populations were underrepresented and children were not included. (Diabetes Care 2020; 43(S1): S66-S76). The eAG is not equivalent to a fasting glucose. Blood 05/20/2025 2:01 AM CDT 05/20/2025 2:11 AM CDT Narrative [facility] - 05/20/2025 4:37 AM CDT Indication for repeat testing:->Health monitoring Zev Cowart MD PhD LAB BLOOD ORDERABLES Fi nal Result [facility] [place] [address] * (ABNORMAL) Comprehensive metabolic panel (05/20/2025 2:01 AM CDT) Sodium 138 135 - 145 mmol/L Potassium, pl 3.5 3.3 - 4.9 mmol/L [facility] Chloride 97 97 - 110 mmol/L [facility] CO2 29 22 - 32 mmol/L [facility] Anion gap 12 2 - 15 mmol/L [facility] BUN 43(H) 6 - 25 mg/dL [facility] Creatinine 1.52(H) 0.80 - 1.30 mg/dL [facility] Glucose 111 70 - 199 mg/dL [facility] Comment: Interpretive Data Fasting glucose >/= 126 mg/dl is diagnostic for diabetes. Fasting is defined as no caloric intake for at least 8 hours. Fasting glucose between 100 mg/dl to 125 mg/dl is diagnostic of prediabetes. In a patient with classic symptoms of hyperglycemia or hyperglycemic crisis, a random glucose >/= 200 mg/dl is diagnostic for diabetes. In the absence of unequivocal hyperglycemia, results should be confirmed by repeat testing. The classification and Diagnosis of Diabetes Diabetes Care 202; 46: S19-S40. Current interpretive data was last revised 2022. Calcium 9.3 8.5 - 10.3 mg/dL [facility] Bilirubin, total 0.7 0.1 - 1.2 mg/dL [facility] Protein, pl 6.3(L) 6.5 - 8.5 g/dL [facility] Albumin 3.9 3.5 - 5.0 g/dL [facility] Alk phos 265(H) 40 - 130 Units/[facility] ALT 18 7 - 55 Units/L [facility] AST 18 10 - 50 Units/L [facility] Blood 05/20/2025 2:01 AM CDT 05/20/2025 2:20 AM CDT Zev Cowart MD PhD LAB BLOOD ORDERABLES Fi nal Result [facility] [place] [address] * XR Abdomen 1 View AP (05/20/2025 1:46 AM CDT) Anatomical Region Laterality Modality Body, Abdomen N/A Digital Radiogra phy 05/20/2025 11:5 7 AM CDT Impressions 05/20/2025 2:[address] 04/08/2025. Partially imaged [place] catheter. Right upper quadrant cholecystectomy clips. Normal nonobstructive bowel gas pattern. Dictated by: Rainer Ceja MD The radiology attending physician has personally reviewed this study, and had reviewed and/or edited this written report and agrees with it. Electronically signed by: Swapna Muniz M.D. Narrative 05/20/2025 2:39 PM CDT EXAMINATION: XR ABDOMEN AP 1 VIEW HISTORY: Pre transplant Procedure Note Swapna Muniz MD - 05/20/2025 EXAMINATION: XR ABDOMEN AP 1 VIEW HISTORY: Pre transplant IMPRESSION: Comparison CT 04/08/2025. Partially imaged [place]ne catheter. Right upper quadrant cholecystectomy clips. Normal nonobstructive bowel gas pattern. Dictated by: Rainer eCja MD The radiology attending physician has personally reviewed this study, and had reviewed and/or edited this written report and agrees with it. Electronically signed by: Swapna Muniz M.D. Zev Cowart MD PhD IMG XR PROCEDURES Final Result * XR Chest 1 View (05/20/2025 1:46 AM CDT) Anatomical Region Laterality Modality Body, Chest N/A Digital Radiogra phy 05/20/2025 9:36 AM CDT Impressions 05/20/2025 9:36 AM CDT 1. 05/19/2025, 12:17 PM: Comparison is made to prior radiograph from the same date. Peripherally inserted central venous catheter tip overlies the superior vena cava. The [place]-Jayne catheter is in the right lower lobe pulmonary artery. There are small bilateral pleural effusions with bibasilar atelectasis. No pneumonic consolidation or pneumothorax. Stable heart size. 2. 05/19/2025, 3:03 PM: Comparison is made to prior radiograph from the same date. There is no significant interval change. 3. 05/20/2025, 1:40 AM: Comparison is made to 05/19/2025. The [place]ne catheter has been retracted and now overlies the main pulmonary artery. 4. 05/20/2025, 3:22 AM:: Comparison is made to the prior examination from the same date. No significant interval change. Electronically signed by: Jamie Lugo M.D. Narrative 05/20/2025 9:36 AM CDT EXAMINATION: 1 view chest radiograph Procedure Note Jamie Lugo MD - 05/20/2025 EXAMINATION: 1 view chest radiograph IMPRESSION: 1. 05/19/2025, 12:17 PM: Comparison is made to prior radiograph from the same date. Peripherally inserted central venous catheter tip overlies the superior vena cava. The [place]ne catheter is in the right lower lobe pulmonary artery. There are small bilateral pleural effusions with bibasilar atelectasis. No pneumonic consolidation or pneumothorax. Stable heart size. 2. 05/19/2025, 3:03 PM: Comparison is made to prior radiograph from the same date. There is no significant interval change. 3. 05/20/2025, 1:40 AM: Comparison is made to 05/19/2025. The [place]ne catheter has been retracted and now overlies the main pulmonary artery. 4. 05/20/2025, 3:22 AM:: Comparison is made to the prior examination from the same date. No significant interval change. Electronically signed by: Jamie Lugo M.D. us Bar Gamble MD IMG XR PROCEDURES Final Resu lt * Prepare platelets: 2 Units (05/20/2025 1:23 AM CDT) Product code [id number] Unit Number [id number]- U [facility] Product Blood Type OPOS [facility] Dispense Status PRESUMED TRANSFUSED [facility] Blood Venous blood specimen / Unknown 05/20/2025 1:23 AM CDT 05/20/2025 1:33 AM CDT Narrative [facility] - 05/21/2025 4:01 PM CDT Other indication->for invasive procedure Are special requirements needed? (all products are leukoreduced)->No Date required:-20250520 PLT # of Units:-2-Units Reasons:-Other (Specify)} us Zev Cowart MD PhD BLOOD BANK PRODUCT ORDE [facility] Final Result [facility] [place] [address] * Prepare RBC: 8 Units (05/20/2025 1:23 AM CDT) Product code [id number] Unit Number [id number] 0-C [facility] Product Blood Type OPOS [facility] Dispense Status RETURNED [facility] Product code [id number] [facility] Unit Number [id number] 0-F [facility] Product Blood Type OPOS [facility] Dispense Status RETURNED [facility] Product code [id number] [facility] Unit Number [id number] 5-8 [facility] Product Blood Type OPOS [facility] Dispense Status RETURNED [facility] Product code [id number] [facility] Unit Number [id number] 4-Z [facility] Product Blood Type OPOS [facility] Dispense Status RETURNED [facility] Product code [id number] [facility] Unit Number [id number] 7-7 [facility] Product Blood Type OPOS [facility] Dispense Status RETURNED [facility] Product code [id number] [facility] Unit Number [id number] 4-9 [facility] Product Blood Type ONEG [facility] Dispense Status RETURNED [facility] Product code L4700C22 [facility] Unit Number [id number] 1-G [facility] Product Blood Type OPOS [facility] Dispense Status RETURNED [facility] Product code [id number] [facility] Unit Number [id number] 9-6 [facility] Product Blood Type OPOS [facility] Dispense Status RETURNED [facility] Blood 05/20/2025 1:23 AM CDT 05/20/2025 1:33 AM CDT Narrative [facility] - 05/21/2025 6:22 AM CDT Are special requirements needed? (All products are leukoreduced and CMV- safe)- >No Date required:-20250520 LRRBC # of Olntv-1-Hepen Reasons:-Intra-op transfusion} us Zev Cowart MD PhD BLOOD BANK PRODUCT ORDE CATIA Final Result Performing Organization Address City/[facility]/ZIP Co de Phone Number [facility] [place] [address] * Potassium, whole blood (05/20/2025 12:09 AM CDT) Potassium, bld 3.7 3.3 - 4.9 mmol/L Blood 05/20/2025 12:0 9 AM CDT 05/20/2025 12:16 AM CDT us Bar Gamble MD LAB BLOOD ORDERABLES Final R esult [facility] [place] [address] * Lactate, whole blood (05/20/2025 12:09 AM CDT) Pathologist [facility] Lactate, bld 0.8 0.7 - 2.0 mmol/L Blood 05/20/2025 12:0 9 AM CDT 05/20/2025 12:16 AM CDT us Zev Cowart MD PhD LAB BLOOD ORDERABLES Fi nal Result Performing Organization Address [facility] Co de Phone Number [facility] [place] [address] * (ABNORMAL) aPTT (05/19/2025 11:29 PM CDT) [facility] aPTT 74(H) 28 - 38 sec Comment: Interpretive Data Heparin therapeutic range: 66.0 - 100.0 seconds. Range based on correlation with therapeutic heparin activity range of 0.3 - 0.7 Units/mL. Current interpretive data was last revised on 2023. Blood 05/19/2025 11:2 9 PM CDT 05/20/2025 12:08 AM CDT Narrative [facility] - 05/20/2025 12:26 AM CDT STAT PTT timing: - Draw 6 hours after heparin infusion initiation - Draw 6 hours after every dose change until 2 consecutive PTTs are therapeutic - Once 2 consecutive PTTs are therapeutic, obtain with daily labs until infusion is discontinued - - Restart every 6 hour lab draws and follow instructions accordingly if PTT is outside of therapeutic range Do not draw lab from IV line that is actively infusing heparin. Use the opposite arm. If arm with actively infusing heparin must be used, pause the infusion for at least 2 minutes, and draw specimen below the IV site. For patients with a central venous catheter (CVC), lab must be drawn peripherally (not from CVC). us Libia Suarez SWEET POTATO DISINTEGRATOR LAB BLOOD ORDERABLES Final Re sult Performing Organization Address City/[facility] Co de Phone Number [facility] [place] [address] * (ABNORMAL) Protime-INR (05/19/2025 11:29 PM CDT) PT 17.3(H) 9.7 - 13.0 sec INR 1.59(H) 0.90 - 1.[address] [facility] Comment: Interpretive data Oral anticoagulant therapeutic ranges: Venous thromboembolism prophylaxis or treatment: 2.0-3.0 CARDIOLOGY Standard range: 2.0-3.0 High-intensity range: 2.5-3.5 Refer to indication-specific guidelines for appropriate target ranges for prosthetic heart valve replacement. Current interpretive data was last revised on 2019. Blood 05/19/2025 11:2 9 PM CDT 05/20/2025 12:08 AM CDT us Zev Cowart MD PhD LAB BLOOD ORDERABLES Fi nal Result Performing Organization Address [facility] Co de Phone Number [facility] [place] [address] * Oxyhemoglobin, pulmonary artery (05/19/2025 5:01 PM CDT) Oxyhemoglobin, PA 60.5 % Comment: Interpretive Data No reference range established. Current interpretive data was last revised 2020. Blood 05/19/2025 5:01 PM CDT 05/19/2025 5:09 PM CDT us Bar Gamble MD LAB BLOOD ORDERABLES Final R esult Performing Organization Address [facility] Co de Phone Number [facility] [place] [address] * (ABNORMAL) Hemoglobin total, pulmonary artery (05/19/2025 5:01 PM CDT) Hemoglobin total, PA 11.3(L) 13.0 - 17.5 g/dL Blood 05/19/2025 5:01 PM CDT 05/19/2025 5:09 PM CDT Bar Gamble MD LAB BLOOD ORDERABLES Final R esult Performing Organization Address [facility] Co de Phone Number [facility] [place] [address] * (ABNORMAL) eGFR (05/19/2025 5:01 PM CDT) eGFR 53(L) >=60 mL/min/1. 73 m2 Comment: Interpretive Data Reference Interval Normal >/= 90 mL/min/1.73m2 Mildly decreased* 60 - 89 mL/min/1.73m2 Mildly to moderately decreased 45 - 59 mL/min/1.73m2 Moderately to severely decreased 30 - 44 mL/min/1.73m2 Severely decreased 15 - 29 mL/min/1.73m2 Kidney Failure < 15 mL/min/1.73m2 *Relative to young adult level Estimated glomerular filtration rate is determined by the 2020 CKD-EPI equation recommended by the National Kidney Foundation (A Unifying Approach to GFR Estimation: Recommendations of the NKF-ASK Task Force on Reassessing the Inclusion of Race in Diagnosing Kidney Disease, JASN 2020). The CKD-EPI equation should not be used for patients with unstable renal function and has not been validated in children and those over 70. Current interpretive data was last reviewed 2021. Blood 05/19/2025 5:01 PM CDT 05/19/2025 5:13 PM CDT us Bar Gamble MD LAB BLOOD ORDERABLES Final R esult Performing Organization Address City/[facility]/ZIP Co de Phone Number [facility] [place] [address] * Lactate, whole blood (05/19/2025 5:01 PM CDT) Lactate, bld 0.8 0.7 - 2.0 mmol/L Blood 05/19/2025 5:01 PM CDT 05/19/2025 5:09 PM CDT Bar Gamble MD LAB BLOOD ORDERABLES Final R esult Performing Organization Address City/[facility] Co de Phone Number [facility] [place] [address] * Magnesium (05/19/2025 5:01 PM CDT) [facility] Magnesium 2.4 1.4 - 2.5 mg/dL Blood 05/19/2025 5:01 PM CDT 05/19/2025 5:13 PM CDT Bar Gamble MD LAB BLOOD ORDERABLES Final R [facility] Performing Organization Address [facility] de Phone Number [facility] [place] [address] * (ABNORMAL) Basic metabolic panel (05/19/2025 5:01 PM CDT) Pathologist [facility] Sodium 136 135 - 145 mmol/L Potassium, pl 3.7 3.3 - 4.9 mmol/L [facility] Chloride 96(L) 97 - 110 mmol/L [facility] CO2 29 22 - 32 mmol/L [facility] Anion gap 11 2 - 15 mmol/L [facility] BUN 42(H) 6 - 25 mg/dL [facility] Creatinine 1.48(H) 0.80 - 1.30 mg/dL [facility] Glucose 116 70 - 199 mg/dL [facility] Comment: Interpretive Data Fasting glucose >/= 126 mg/dl is diagnostic for diabetes. Fasting is defined as no caloric intake for at least 8 hours. Fasting glucose between 100 mg/dl to 125 mg/dl is diagnostic of prediabetes. In a patient with classic symptoms of hyperglycemia or hyperglycemic crisis, a random glucose >/= 200 mg/dl is diagnostic for diabetes. In the absence of unequivocal hyperglycemia, results should be confirmed by repeat testing. The classification and Diagnosis of Diabetes Diabetes Care 2021; 46: S19-S40. Current interpretive data was last revised 2022. Calcium 9.6 8.5 - 10.3 mg/dL [facility] Blood 05/19/2025 5:01 PM CDT 05/19/2025 5:13 PM CDT us Bar Gamble MD LAB BLOOD ORDERABLES Final R esult [facility] [place] [address] * XR Chest 1 View (05/19/2025 3:10 PM CDT) Anatomical Region Laterality Modality Body, Chest N/A Computed Radiogr aphy 05/20/2025 9:36 AM CDT Impressions 05/20/2025 9:36 AM CDT 1. 05/19/2025, 12:17 PM: Comparison is made to prior radiograph from the same date. Peripherally inserted central venous catheter tip overlies the superior vena cava. The [place] catheter is in the right lower lobe pulmonary artery. There are small bilateral pleural effusions with bibasilar atelectasis. No pneumonic consolidation or pneumothorax. Stable heart size. 2. 05/19/2025, 3:03 PM: Comparison is made to prior radiograph from the same date. There is no significant interval change. 3. 05/20/2025, 1:40 AM: Comparison is made to 05/19/2025. The [place] catheter has been retracted and now overlies the main pulmonary artery. 4. 05/20/2025, 3:22 AM:: Comparison is made to the prior examination from the same date. No significant interval change. Electronically signed by: Jamie Lugo M.D. Narrative 05/20/2025 9:36 AM CDT EXAMINATION: 1 view chest radiograph Procedure Note Jamie Lugo MD - 06/30/2025 EXAMINATION: 1 view chest radiograph IMPRESSION: 1. 05/19/2025, 12:17 PM: Comparison is made to prior radiograph from the same date. Peripherally inserted central venous catheter tip overlies the superior vena cava. The [place] catheter is in the right lower lobe pulmonary artery. There are small bilateral pleural effusions with bibasilar atelectasis. No pneumonic consolidation or pneumothorax. Stable heart size. 2. 05/19/2025, 3:03 PM: Comparison is made to prior radiograph from the same date. There is no significant interval change. 3. 05/20/2025, 1:40 AM: Comparison is made to 05/19/2025. The [place] catheter has been retracted and now overlies the main pulmonary artery. 4. 05/20/2025, 3:22 AM:: Comparison is made to the prior examination from the same date. No significant interval change. Electronically signed by: Jamie Lugo M.D. us Zev Cowart MD PhD IMG XR PROCEDURES Final Result * Oxyhemoglobin, pulmonary artery (05/19/2025 12:48 PM CDT) Oxyhemoglobin, PA 60.3 % Comment: Interpretive Data No reference range established. Current interpretive data was last revised 2020. Blood 05/19/2025 12:4 8 PM CDT 05/19/2025 1:02 PM CDT us Bar Gamble MD LAB BLOOD ORDERABLES Final R esult [facility] Department of Laboratories [place], [place] [id number] * (ABNORMAL) Hemoglobin total, pulmonary artery (05/19/2025 12:48 PM CDT) Hemoglobin total, PA 11.1(L) 13.0 - 17.5 g/dL Blood 05/19/2025 12:4 8 PM CDT 05/19/2025 1:02 PM CDT Bar Gamble MD LAB BLOOD ORDERABLES Final R esult Performing Organization Address City/[facility] Co de Phone Number [facility] [place] [address] * Potassium, whole blood (05/19/2025 12:48 PM CDT) Potassium, bld 4.3 3.3 - 4.9 mmol/L Blood 05/19/2025 12:4 8 PM CDT 05/19/2025 1:02 PM CDT Bar Gamble MD LAB BLOOD ORDERABLES Final R esult Performing Organization Address [facility] Co de Phone Number [facility] [place] [address] * Lactate, whole blood (05/19/2025 12:48 PM CDT) Lactate, bld 1.3 0.7 - 2.0 mmol/L Blood 05/19/2025 12:4 8 PM CDT 05/19/2025 1:02 PM CDT Bar Gamble MD LAB BLOOD ORDERABLES Final R esult Performing Organization Address [facility] Co de Phone Number [facility] [place] [address] * XR Chest 1 View (05/19/2025 12:29 PM CDT) Anatomical Region Laterality Modality Body, Chest N/A Computed Radiogr aphy 05/20/2025 9:36 AM CDT Impressions 05/20/2025 9:36 AM CDT 1. 05/19/2025, 12:17 PM: Comparison is made to prior radiograph from the same date. Peripherally inserted central venous catheter tip overlies the superior vena cava. The [place] catheter is in the right lower lobe pulmonary artery. There are small bilateral pleural effusions with bibasilar atelectasis. No pneumonic consolidation or pneumothorax. Stable heart size. 2. 05/19/2025, 3:03 PM: Comparison is made to prior radiograph from the same date. There is no significant interval change. 3. 05/20/2025, 1:40 AM: Comparison is made to 05/19/2025. The [place] catheter has been retracted and now overlies the main pulmonary artery. 4. 05/20/2025, 3:22 AM:: Comparison is made to the prior examination from the same date. No significant interval change. Electronically signed by: Jamie Lugo M.D. Narrative 05/20/2025 9:36 AM CDT EXAMINATION: 1 view chest radiograph Procedure Note Jamie Lugo MD - 05/20/2025 EXAMINATION: 1 view chest radiograph IMPRESSION: 1. 05/19/2025, 12:17 PM: Comparison is made to prior radiograph from the same date. Peripherally inserted central venous catheter tip overlies the superior vena cava. The [place] catheter is in the right lower lobe pulmonary artery. There are small bilateral pleural effusions with bibasilar atelectasis. No pneumonic consolidation or pneumothorax. Stable heart size. 2. 05/19/2025, 3:03 PM: Comparison is made to prior radiograph from the same date. There is no significant interval change. 3. 05/20/2025, 1:40 AM: Comparison is made to 05/19/2025. The [place] catheter has been retracted and now overlies the main pulmonary artery. 4. 05/20/2025, 3:22 AM:: Comparison is made to the prior examination from the same date. No significant interval change. Electronically signed by: Jamie Lugo M.D. us Zev Cowart MD PhD IMG XR PROCEDURES Final Result * XR Chest 1 View (05/19/2025 6:23 AM CDT) Anatomical Region Laterality Modality Body, Chest N/A Digital Radiogra phy 05/19/2025 7:21 AM CDT Impressions 05/19/2025 7:21 AM CDT A left internal jugular [place] catheter is present in unchanged position with tip terminating in the right lower lobe pulmonary artery branch; retraction is recommended. A right peripherally inserted central venous catheter is present with tip overlying the superior cavoatrial junction. There is unchanged mild streaky bibasilar atelectasis, with unchanged small bilateral pleural effusions. No pneumothorax is identified. The cardiomediastinal silhouette is unchanged. Electronically signed by: Raman Saavedra M.D. Narrative 05/19/2025 7:21 AM CDT EXAMINATION: XR CHEST 1 VIEW COMPARISON: 05/18/2025 8:35 AM Procedure Note Raman Saavedra MD PhD - 05/19/2025 EXAMINATION: XR CHEST 1 VIEW COMPARISON: 05/18/2025 8:35 AM IMPRESSION: A left internal jugular [place] catheter is present in unchanged position with tip terminating in the right lower lobe pulmonary artery branch; retraction is recommended. A right peripherally inserted central venous catheter is present with tip overlying the superior cavoatrial junction. There is unchanged mild streaky bibasilar atelectasis, with unchanged small bilateral pleural effusions. No pneumothorax is identified. The cardiomediastinal silhouette is unchanged. Electronically signed by: Raman Saavedra M.D. Bar Gamble MD IMG XR PROCEDURES Final Resu lt * (ABNORMAL) eGFR (05/19/2025 5:09 AM CDT) eGFR 52(L) >=60 mL/min/1. 73 m2 Comment: Interpretive Data Reference Interval Normal >/= 90 mL/min/1.73m2 Mildly decreased* 60 - 89 mL/min/1.73m2 Mildly to moderately decreased 45 - 59 mL/min/1.73m2 Moderately to severely decreased 30 - 44 mL/min/1.73m2 Severely decreased 15 - 29 mL/min/1.73m2 Kidney Failure < 15 mL/min/1.73m2 *Relative to young adult level Estimated glomerular filtration rate is determined by the 2020 CKD-EPI equation recommended by the National Kidney Foundation (A Unifying Approach to GFR Estimation: Recommendations of the NKF-ASK Task Force on Reassessing the Inclusion of Race in Diagnosing Kidney Disease, JASN 2020). The CKD-EPI equation should not be used for patients with unstable renal function and has not been validated in children and those over 70. Current interpretive data was last reviewed 2021. Blood 05/19/2025 5:09 AM CDT 05/19/2025 5:53 AM CDT Ramiro Devries MD LAB BLOOD ORDERABLE S Final Result Performing Organization Address City/[facility]/ZIP Co de Phone Number [facility] [place] [address] * Magnesium (05/19/2025 5:09 AM CDT) Pathologist [facility] Magnesium 2.2 1.4 - 2.5 mg/dL Blood 05/19/2025 5:09 AM CDT 05/19/2025 5:53 AM CDT Ramiro Devries MD LAB BLOOD ORDERABLE S Final Result [facility] [place] [address] * (ABNORMAL) Basic metabolic panel (05/19/2025 5:09 AM CDT) Sodium 140 135 - 145 mmol/L Potassium, pl 3.8 3.3 - 4.9 mmol/L [facility] Chloride 99 97 - 110 mmol/L [facility] CO2 30 22 - 32 mmol/L [facility] Anion gap 11 2 - 15 mmol/L [facility] BUN 42(H) 6 - 25 mg/dL [facility] Creatinine 1.51(H) 0.80 - 1.30 mg/dL [facility] Glucose 116 70 - 199 mg/dL [facility] Comment: Interpretive Data Fasting glucose >/= 126 mg/dl is diagnostic for diabetes. Fasting is defined as no caloric intake for at least 8 hours. Fasting glucose between 100 mg/dl to 125 mg/dl is diagnostic of prediabetes. In a patient with classic symptoms of hyperglycemia or hyperglycemic crisis, a random glucose >/= 200 mg/dl is diagnostic for diabetes. In the absence of unequivocal hyperglycemia, results should be confirmed by repeat testing. The classification and Diagnosis of Diabetes Diabetes Care 2021; 46: S19-S40. Current interpretive data was last revised 2022. Calcium 9.3 8.5 - 10.3 mg/dL [facility] Blood 05/19/2025 5:09 AM CDT 05/19/2025 5:53 AM CDT us Ramiro Devries MD LAB BLOOD ORDERABLE S Final Result Performing Organization Address City/[facility]/ZIP Co de Phone Number [facility] [place] [address] * Oxyhemoglobin, pulmonary artery (05/19/2025 5:03 AM CDT) Oxyhemoglobin, PA 64.3 % Comment: Interpretive Data No reference range established. Current interpretive data was last revised 2020. Blood 05/19/2025 5:03 AM CDT 05/19/2025 5:49 AM CDT us Bar Gamble MD LAB BLOOD ORDERABLES Final R esult [facility] [place] [address] * (ABNORMAL) Hemoglobin total, pulmonary artery (05/19/2025 5:03 AM CDT) Hemoglobin total, PA 10.4(L) 13.0 - 17.5 g/dL Blood 05/19/2025 5:03 AM CDT 05/19/2025 5:49 AM CDT Bar Gamble MD LAB BLOOD ORDERABLES Final R esult Performing Organization Address City/[facility] Co de Phone Number [facility] [place] [address] * Potassium, whole blood (05/19/2025 5:03 AM CDT) Potassium, bld 3.6 3.3 - 4.9 mmol/L Blood 05/19/2025 5:03 AM CDT 05/19/2025 5:49 AM CDT Bar Gamble MD LAB BLOOD ORDERABLES Final R esult Performing Organization Address [facility] Co de Phone Number [facility] [place] [address] * Lactate, whole blood (05/19/2025 5:03 AM CDT) Lactate, bld 0.7 0.7 - 2.0 mmol/L Blood 05/19/2025 5:03 AM CDT 05/19/2025 5:49 AM CDT Bar Gamble MD LAB BLOOD ORDERABLES Final R esult Performing Organization Address [facility] [place] [address] * Oxyhemoglobin, pulmonary artery (05/18/2025 10:41 PM CDT) Oxyhemoglobin, PA 67.6 % Comment: Interpretive Data No reference range established. Current interpretive data was last revised 2020. Blood 05/18/2025 10:4 1 PM CDT 05/18/2025 10:59 PM CDT us Bar Gamble MD LAB BLOOD ORDERABLES Final R esult Performing Organization Address [facility]/ZIP Co de Phone Number [facility] [place] [address] * (ABNORMAL) Hemoglobin total, pulmonary artery (05/18/2025 10:41 PM CDT) Hemoglobin total, PA 10.7(L) 13.0 - 17.5 g/dL Blood 05/18/2025 10:4 1 PM CDT 05/18/2025 10:59 PM CDT us Bar Gamble MD LAB BLOOD ORDERABLES Final R esult Performing Organization Address [facility] Co de Phone Number [facility] [place] [address] * Potassium, whole blood (05/18/2025 10:41 PM CDT) Potassium, bld 3.8 3.3 - 4.9 mmol/L Blood 05/18/2025 10:4 1 PM CDT 05/18/2025 10:59 PM CDT us Bar Gamble MD LAB BLOOD ORDERABLES Final R esult Performing Organization Address [facility] Co de Phone Number [facility] [place] [address] * (ABNORMAL) eGFR (05/18/2025 10:41 PM CDT) eGFR 48(L) >=60 mL/min/1. 73 m2 Comment: Interpretive Data Reference Interval Normal >/= 90 mL/min/1.73m2 Mildly decreased* 60 - 89 mL/min/1.73m2 Mildly to moderately decreased 45 - 59 mL/min/1.73m2 Moderately to severely decreased 30 - 44 mL/min/1.73m2 Severely decreased 15 - 29 mL/min/1.73m2 Kidney Failure < 15 mL/min/1.73m2 *Relative to young adult level Estimated glomerular filtration rate is determined by the 2020 CKD-EPI equation recommended by the National Kidney Foundation (A Unifying Approach to GFR Estimation: Recommendations of the NKF-ASK Task Force on Reassessing the Inclusion of Race in Diagnosing Kidney Disease, JASN 2020). The CKD-EPI equation should not be used for patients with unstable renal function and has not been validated in children and those over 70. Current interpretive data was last reviewed 2021. Blood 05/18/2025 10:4 1 PM CDT 05/18/2025 11:10 PM CDT us Bar Gamble MD LAB BLOOD ORDERABLES Final R esult Performing Organization Address [facility] Co de Phone Number [facility] [place] [address] * Lactate, whole blood (05/18/2025 10:41 PM CDT) Lactate, bld 0.9 0.7 - 2.0 mmol/L Blood 05/18/2025 10:4 1 PM CDT 05/18/2025 10:59 PM CDT us Zev Cowart MD PhD LAB BLOOD ORDERABLES Fi nal Result Performing Organization Address [facility] Co de Phone Number [facility] [place] [address] * (ABNORMAL) aPTT (05/18/2025 10:41 PM CDT) aPTT 58(H) 28 - 38 sec Comment: Interpretive Data Heparin therapeutic range: 66.0 - 100.0 seconds. Range based on correlation with therapeutic heparin activity range of 0.3 - 0.7 Units/mL. Current interpretive data was last revised on 2023. Blood 05/18/2025 10:4 1 PM CDT 05/18/2025 11:15 PM CDT Narrative [facility] - 05/18/2025 11:37 PM CDT STAT PTT timing: - Draw 6 hours after heparin infusion initiation - Draw 6 hours after every dose change until 2 consecutive PTTs are therapeutic - Once 2 consecutive PTTs are therapeutic, obtain with daily labs until infusion is discontinued - - Restart every 6 hour lab draws and follow instructions accordingly if PTT is outside of therapeutic range Do not draw lab from IV line that is actively infusing heparin. Use the opposite arm. If arm with actively infusing heparin must be used, pause the infusion for at least 2 minutes, and draw specimen below the IV site. For patients with a central venous catheter (CVC), lab must be drawn peripherally (not from CVC). Libia Suarez NP LAB BLOOD ORDERABLES Final Re sult [facility] [place] [address] * (ABNORMAL) CBC without differential (05/18/2025 10:41 PM CDT) WBC 7.74 3.80 - 9.90 K/cumm Hgb 10.2(L) 13.0 - 17.5 g/dL [facility] Hct 31.6(L) 38.9 - 50.3 % [facility] Plt 205 150 - 400 K/cumm [facility] MPV 11.5 9.1 - 12.[address] [facility] RBC 3.79(L) 4.30 - 5.80 M/cumm [facility] MCV 83.4 81.3 - 96.[address] [facility] MCH 26.9(L) 27.1 - 33.[address] [facility] MCHC 32.3 32.3 - 35.7 g/dL [facility] RDW CV 15.5(H) 11.1 - 14.9 % [facility] RDW SD 46.8 35.7 - 48.[address] [facility] NRBC abs 0.00 0.00 - 0.01 K/cumm [facility] Blood 05/18/2025 10:4 1 PM CDT 05/18/2025 11:11 PM CDT Bar Gamlbe MD LAB BLOOD ORDERABLES Final R esult Performing Organization Address [facility] Co de Phone Number [facility] [place] [address] * Phosphorus (05/18/2025 10:41 PM CDT) Phosphorus, pl 3.8 2.3 - 4.5 mg/dL Blood 05/18/2025 10:4 1 PM CDT 05/18/2025 11:10 PM CDT Zev Cowart MD PhD LAB BLOOD ORDERABLES Fi nal Result Performing Organization Address [facility] Co de Phone Number [facility] [place] [address] * Magnesium (05/18/2025 10:41 PM CDT) Magnesium 2.3 1.4 - 2.5 mg/dL Blood 05/18/2025 10:4 1 PM CDT 05/18/2025 11:10 PM CDT Bar Gamble MD LAB BLOOD ORDERABLES Final R esult Performing Organization Address [facility] Co de Phone Number [facility] [place] [address] * (ABNORMAL) Hepatic function panel (05/18/2025 10:41 PM CDT) Bilirubin, total 0.5 0.1 - 1.2 mg/dL Bilirubin, direct 0.3 0.1 - 0.3 mg/dL [facility] Protein, pl 6.0(L) 6.5 - 8.5 g/dL [facility] Albumin 3.9 3.5 - 5.0 g/dL [facility] Alk phos 268(H) 40 - 130 Units/L [facility] ALT 17 7 - 55 Units/L [facility] AST 18 10 - 50 Units/L [facility] Blood 05/18/2025 10:4 1 PM CDT 05/18/2025 11:10 PM CDT us Bar Gamble MD LAB BLOOD ORDERABLES Final R esult [facility] [place] [address] * (ABNORMAL) Basic metabolic panel (05/18/2025 10:41 PM CDT) Sodium 137 135 - 145 mmol/L Potassium, pl 4.1 3.3 - 4.9 mmol/L [facility] Chloride 99 97 - 110 mmol/L [facility] CO2 30 22 - 32 mmol/L [facility] Anion gap 8 2 - 15 mmol/L [facility] BUN 46(H) 6 - 25 mg/dL [facility] Creatinine 1.61(H) 0.80 - 1.30 mg/dL [facility] Glucose 122 70 - 199 mg/dL [facility] Comment: Interpretive Data Fasting glucose >/= 126 mg/dl is diagnostic for diabetes. Fasting is defined as no caloric intake for at least 8 hours. Fasting glucose between 100 mg/dl to 125 mg/dl is diagnostic of prediabetes. In a patient with classic symptoms of hyperglycemia or hyperglycemic crisis, a random glucose >/= 200 mg/dl is diagnostic for diabetes. In the absence of unequivocal hyperglycemia, results should be confirmed by repeat testing. The classification and Diagnosis of Diabetes Diabetes Care 2021; 46: S19-S40. Current interpretive data was last revised 2022. Calcium 9.1 8.5 - 10.3 mg/dL [facility] Blood 05/18/2025 10:4 1 PM CDT 05/18/2025 11:10 PM CDT us Bar Gamble MD LAB BLOOD ORDERABLES Final R esult Performing Organization Address [facility] [place] [address] * Oxyhemoglobin, pulmonary artery (05/18/2025 5:23 PM CDT) Oxyhemoglobin, PA 52.2 % Comment: Interpretive Data No reference range established. Current interpretive data was last revised 2020. Blood 05/18/2025 5:23 PM CDT 05/18/2025 5:33 PM CDT Bar Gamble MD LAB BLOOD ORDERABLES Final R esult Performing Organization Address [facility] [place] [address] * (ABNORMAL) Hemoglobin total, pulmonary artery (05/18/2025 5:23 PM CDT) Hemoglobin total, PA 11.9(L) 13.0 - 17.5 g/dL Blood 05/18/2025 5:23 PM CDT 05/18/2025 5:33 PM CDT Bar Gamble MD LAB BLOOD ORDERABLES Final R esult Performing Organization Address [facility] Co de Phone Number [facility] [place] [address] * (ABNORMAL) eGFR (05/18/2025 5:23 PM CDT) eGFR 54(L) >=60 mL/min/1. 73 m2 Comment: Interpretive Data Reference Interval Normal >/= 90 mL/min/1.73m2 Mildly decreased* 60 - 89 mL/min/1.73m2 Mildly to moderately decreased 45 - 59 mL/min/1.73m2 Moderately to severely decreased 30 - 44 mL/min/1.73m2 Severely decreased 15 - 29 mL/min/1.73m2 Kidney Failure < 15 mL/min/1.73m2 *Relative to young adult level Estimated glomerular filtration rate is determined by the 2020 CKD-EPI equation recommended by the National Kidney Foundation (A Unifying Approach to GFR Estimation: Recommendations of the NKF-ASK Task Force on Reassessing the Inclusion of Race in Diagnosing Kidney Disease, JASN 2020). The CKD-EPI equation should not be used for patients with unstable renal function and has not been validated in children and those over 70. Current interpretive data was last reviewed 2021. Blood 05/18/2025 5:23 PM CDT 05/18/2025 5:40 PM CDT Bar Gamble MD LAB BLOOD ORDERABLES Final R esult Performing Organization Address [facility] de Phone Number [facility] [place] [address] * Lactate, whole blood (05/18/2025 5:23 PM CDT) Lactate, bld 0.8 0.7 - 2.0 mmol/L Blood 05/18/2025 5:23 PM CDT 05/18/2025 5:33 PM CDT Bar Gamble MD LAB BLOOD ORDERABLES Final R esult Performing Organization Address [facility] de Phone Number [facility] [place] [address] * Magnesium (05/18/2025 5:23 PM CDT) Magnesium 2.3 1.4 - 2.5 mg/dL Blood 05/18/2025 5:23 PM CDT 05/18/2025 5:40 PM CDT Bar Gamble MD LAB BLOOD ORDERABLES Final R esult Performing Organization Address [facility]/ZIP Co de Phone Number [facility] [place] [address] * (ABNORMAL) Basic metabolic panel (05/18/2025 5:23 PM CDT) Sodium 138 135 - 145 mmol/L Potassium, pl 3.9 3.3 - 4.9 mmol/L [facility] Chloride 98 97 - 110 mmol/L [facility] CO2 28 22 - 32 mmol/L [facility] Anion gap 12 2 - 15 mmol/L [facility] BUN 45(H) 6 - 25 mg/dL [facility] Creatinine 1.47(H) 0.80 - 1.30 mg/dL [facility] Glucose 129 70 - 199 mg/dL [facility] Comment: Interpretive Data Fasting glucose >/= 126 mg/dl is diagnostic for diabetes. Fasting is defined as no caloric intake for at least 8 hours. Fasting glucose between 100 mg/dl to 125 mg/dl is diagnostic of prediabetes. In a patient with classic symptoms of hyperglycemia or hyperglycemic crisis, a random glucose >/= 200 mg/dl is diagnostic for diabetes. In the absence of unequivocal hyperglycemia, results should be confirmed by repeat testing. The classification and Diagnosis of Diabetes Diabetes Care 202; 46: S19-S40. Current interpretive data was last revised 2022. Calcium 9.4 8.5 - 10.3 mg/dL [facility] Blood 05/18/2025 5:23 PM CDT 05/18/2025 5:40 PM CDT Bar Gamble MD LAB BLOOD ORDERABLES Final R esult [facility] [place] [address] * Oxyhemoglobin, pulmonary artery (05/18/2025 12:05 PM CDT) Oxyhemoglobin, PA 58.3 % Comment: Interpretive Data No reference range established. Current interpretive data was last revised 2020. Blood 05/18/2025 12:0 5 PM CDT 05/18/2025 12:12 PM CDT Bar Gamble MD LAB BLOOD ORDERABLES Final R esult Performing Organization Address [facility] Co de Phone Number [facility] [place] [address] * (ABNORMAL) Hemoglobin total, pulmonary artery (05/18/2025 12:05 PM CDT) Hemoglobin total, PA 11.0(L) 13.0 - 17.5 g/dL Blood 05/18/2025 12:0 5 PM CDT 05/18/2025 12:12 PM CDT us Bar Gamble MD LAB BLOOD ORDERABLES Final R esult Performing Organization Address [facility] de Phone Number [facility] [place] [address] * Potassium, whole blood (05/18/2025 12:05 PM CDT) Potassium, bld 4.0 3.3 - 4.9 mmol/L Blood 05/18/2025 12:0 5 PM CDT 05/18/2025 12:12 PM CDT us Zev Cowart MD PhD LAB BLOOD ORDERABLES Fi nal Result Performing Organization Address [facility] Co de Phone Number [facility] [place] [address] * Lactate, whole blood (05/18/2025 12:05 PM CDT) Lactate, bld 1.3 0.7 - 2.0 mmol/L Blood 05/18/2025 12:0 5 PM CDT 05/18/2025 12:12 PM CDT us Zev Cowart MD PhD LAB BLOOD ORDERABLES Fi nal Result D[facility] MARIA [facility]DA [facility] [place] [address] * XR Chest 1 View (05/18/2025 8:40 AM CDT) Anatomical Region Laterality Modality Body, Chest N/A Computed Radiogr aphy 05/18/2025 9:28 PM CDT Impressions 05/18/2025 9:28 PM CDT A left internal jugular [place]-Jayne catheter is present with tip overlying the right lower lobe pulmonary artery; recommend retracting approximately 10 cm. A right peripherally inserted central venous catheter is present with tip at the superior cavoatrial junction. There are small right greater than left bilateral pleural effusions with mild bibasilar atelectasis. No pneumothorax is identified. The cardiomediastinal silhouette is unchanged. Electronically signed by: Raman Saavedra M.D. Narrative 05/18/2025 9:28 PM CDT EXAMINATION: XR CHEST 1 VIEW COMPARISON: 05/17/2025 12:26 PM Procedure Note Raman Saavedra MD PhD - 05/18/2025 EXAMINATION: XR CHEST 1 VIEW COMPARISON: 05/17/2025 12:26 PM IMPRESSION: A left internal jugular [place]-Jayne catheter is present with tip overlying the right lower lobe pulmonary artery; recommend retracting approximately 10 cm. A right peripherally inserted central venous catheter is present with tip at the superior cavoatrial junction. There are small right greater than left bilateral pleural effusions with mild bibasilar atelectasis. No pneumothorax is identified. The cardiomediastinal silhouette is unchanged. Electronically signed by: Raman Saavedra M.D. us Bar Gamble MD IMG XR PROCEDURES Final Resu lt * Oxyhemoglobin, pulmonary artery (05/18/2025 5:59 AM CDT) Oxyhemoglobin, PA 58.9 % Comment: Interpretive Data No reference range established. Current interpretive data was last revised 2020. Blood 05/18/2025 5:59 AM CDT 05/18/2025 6:11 AM CDT us Bar Gamble MD LAB BLOOD ORDERABLES Final R esult Performing Organization Address [facility] Co de Phone Number [facility] [place] [address] * (ABNORMAL) Hemoglobin total, pulmonary artery (05/18/2025 5:59 AM CDT) Hemoglobin total, PA 11.1(L) 13.0 - 17.5 g/dL Blood 05/18/2025 5:59 AM CDT 05/18/2025 6:11 AM CDT us Bar Gamble MD LAB BLOOD ORDERABLES Final R esult Performing Organization Address [facility] Co de Phone Number [facility] [place] [address] * (ABNORMAL) Potassium, whole blood (05/18/2025 5:59 AM CDT) Potassium, bld 3.2(L) 3.3 - 4.9 mmol/L Blood 05/18/2025 5:59 AM CDT 05/18/2025 6:15 AM CDT us Bar Gamble MD LAB BLOOD ORDERABLES Final R esult Performing Organization Address City/[facility] Co de Phone Number [facility] [place] [address] * (ABNORMAL) eGFR (05/18/2025 5:59 AM CDT) eGFR 53(L) >=60 mL/min/1. 73 m2 Comment: Interpretive Data Reference Interval Normal >/= 90 mL/min/1.73m2 Mildly decreased* 60 - 89 mL/min/1.73m2 Mildly to moderately decreased 45 - 59 mL/min/1.73m2 Moderately to severely decreased 30 - 44 mL/min/1.73m2 Severely decreased 15 - 29 mL/min/1.73m2 Kidney Failure < 15 mL/min/1.73m2 *Relative to young adult level Estimated glomerular filtration rate is determined by the 2020 CKD-EPI equation recommended by the National Kidney Foundation (A Unifying Approach to GFR Estimation: Recommendations of the NKF-ASK Task Force on Reassessing the Inclusion of Race in Diagnosing Kidney Disease, JASN 2020). The CKD-EPI equation should not be used for patients with unstable renal function and has not been validated in children and those over 70. Current interpretive data was last reviewed 2021. Blood 05/18/2025 5:59 AM CDT 05/18/2025 6:16 AM CDT us Bar Gamble MD LAB BLOOD ORDERABLES Final R esult Performing Organization Address City/[facility] Co de Phone Number DULCE MAR[facility] [place] [address] * (ABNORMAL) Lactate, whole blood (05/18/2025 5:59 AM CDT) Lactate, bld 0.6(L) 0.7 - 2.0 mmol/L Blood 05/18/2025 5:59 AM CDT 05/18/2025 6:15 AM CDT us Bar Gamble MD LAB BLOOD ORDERABLES Final R esult D[facility] MAR[facility] [place] [address] * (ABNORMAL) aPTT (05/18/2025 5:59 AM CDT) aPTT 52(H) 28 - 38 sec Comment: Interpretive Data Heparin therapeutic range: 66.0 - 100.0 seconds. Range based on correlation with therapeutic heparin activity range of 0.3 - 0.7 Units/mL. Current interpretive data was last revised on 2023. Blood 05/18/2025 5:59 AM CDT 05/18/2025 6:18 AM CDT Narrative [facility] - 05/18/2025 6:27 AM CDT STAT PTT timing: - Draw 6 hours after heparin infusion initiation - Draw 6 hours after every dose change until 2 consecutive PTTs are therapeutic - Once 2 consecutive PTTs are therapeutic, obtain with daily labs until infusion is discontinued - - Restart every 6 hour lab draws and follow instructions accordingly if PTT is outside of therapeutic range Do not draw lab from IV line that is actively infusing heparin. Use the opposite arm. If arm with actively infusing heparin must be used, pause the infusion for at least 2 minutes, and draw specimen below the IV site. For patients with a central venous catheter (CVC), lab must be drawn peripherally (not from CVC). Libia Suarez SWEET POTATO DISINTEGRATOR LAB BLOOD ORDERABLES Final Re sult [facility] Department of Laboratories [place], [place] [id number] * (ABNORMAL) CBC without differential (05/18/2025 5:59 AM CDT) WBC 7.83 3.80 - 9.90 K/cumm Hgb 10.5(L) 13.0 - 17.5 g/dL [facility] Hct 32.3(L) 38.9 - 50.3 % [facility] Plt 199 150 - 400 K/cumm [facility] MPV 11.7 9.1 - 12.[address] [facility] RBC 3.91(L) 4.30 - 5.80 M/cumm [facility] MCV 82.6 81.3 - 96.[address] [facility] MCH 26.9(L) 27.1 - 33.[address] [facility] MCHC 32.5 32.3 - 35.7 g/dL [facility] RDW CV 15.5(H) 11.1 - 14.9 % [facility] RDW SD 47.0 35.7 - 48.[address] [facility] NRBC abs 0.00 0.00 - 0.01 K/cumm [facility] Blood 05/18/2025 5:59 AM CDT 05/18/2025 6:16 AM CDT Bar Gamble MD LAB BLOOD ORDERABLES Final R esult [facility] [place] [address] * Magnesium (05/18/2025 5:59 AM CDT) Pathologist [facility] Magnesium 2.3 1.4 - 2.5 mg/dL Blood 05/18/2025 5:59 AM CDT 05/18/2025 6:16 AM CDT us Bar Gamble MD LAB BLOOD ORDERABLES Final R esult Performing Organization Address City/[facility] Co de Phone Number [facility] [place] [address] * (ABNORMAL) Hepatic function panel (05/18/2025 5:59 AM CDT) Bilirubin, total 0.7 0.1 - 1.2 mg/dL Bilirubin, direct 0.3 0.1 - 0.3 mg/dL [facility] Protein, pl 6.2(L) 6.5 - 8.5 g/dL [facility] Albumin 3.9 3.5 - 5.0 g/dL [facility] Alk phos 266(H) 40 - 130 Units/L [facility] ALT 18 7 - 55 Units/L [facility] AST 20 10 - 50 Units/L [facility] Blood 05/18/2025 5:59 AM CDT 05/18/2025 6:16 AM CDT us Bar Gamble MD LAB BLOOD ORDERABLES Final R esult [facility] [place] [address] * (ABNORMAL) Basic metabolic panel (05/18/2025 5:59 AM CDT) Pathologist [facility] Sodium 138 135 - 145 mmol/L Potassium, pl 3.2(L) 3.3 - 4.9 mmol/L [facility] Chloride 97 97 - 110 mmol/L [facility] CO2 31 22 - 32 mmol/L [facility] Anion gap 10 2 - 15 mmol/L [facility] BUN 41(H) 6 - 25 mg/dL [facility] Creatinine 1.48(H) 0.80 - 1.30 mg/dL [facility] Glucose 118 70 - 199 mg/dL [facility] Comment: Interpretive Data Fasting glucose >/= 126 mg/dl is diagnostic for diabetes. Fasting is defined as no caloric intake for at least 8 hours. Fasting glucose between 100 mg/dl to 125 mg/dl is diagnostic of prediabetes. In a patient with classic symptoms of hyperglycemia or hyperglycemic crisis, a random glucose >/= 200 mg/dl is diagnostic for diabetes. In the absence of unequivocal hyperglycemia, results should be confirmed by repeat testing. The classification and Diagnosis of Diabetes Diabetes Care 202; 46: S19-S40. Current interpretive data was last revised 2022. Calcium 9.4 8.5 - 10.3 mg/dL [facility] Blood 05/18/2025 5:59 AM CDT 05/18/2025 6:16 AM CDT us Bar Gamble MD LAB BLOOD ORDERABLES Final R esult [facility] [place] [address] * Antibody identification (05/17/2025 11:01 PM CDT) Pathologist [facility] Antibody ID 1 [id number] Comment:Panreactive -CD38 on reagent RBCs reacting with anti-CD38 therapy. DTT treatment removes cell surface CD38 and allows detection of common clinically significant antibodies except those against [place] antigens. TRANSFUSION 2015;55;[id number] Blood 05/17/2025 11:0 1 PM CDT 05/17/2025 11:01 PM CDT us Libia Suarez SWEET POTATO DISINTEGRATOR LAB BLOOD BANK TEST ORDERABLE S Final Result Performing Organization Address City/[facility]/ZIP Co de Phone Number [facility] [place] [address] * Potassium, whole blood (05/17/2025 10:00 PM CDT) Potassium, bld 3.9 3.3 - 4.9 mmol/L Blood 05/17/2025 10:0 0 PM CDT 05/17/2025 10:08 PM CDT us Bar Gamble MD LAB BLOOD ORDERABLES Final R esult Performing Organization Address [facility] Co de Phone Number [facility] [place] [address] * Oxyhemoglobin, pulmonary artery (05/17/2025 9:59 PM CDT) Oxyhemoglobin, PA 50.2 % Comment: Interpretive Data No reference range established. Current interpretive data was last revised 2020. Blood 05/17/2025 9:59 PM CDT 05/17/2025 10:07 PM CDT us Bar Gamble MD LAB BLOOD ORDERABLES Final R esult Performing Organization Address City/[facility] Co de Phone Number [facility] [place] [address] * (ABNORMAL) Hemoglobin total, pulmonary artery (05/17/2025 9:59 PM CDT) Pathologist [facility] Hemoglobin total, PA 12.1(L) 13.0 - 17.5 g/dL Blood 05/17/2025 9:59 PM CDT 05/17/2025 10:07 PM CDT Bar Gamble MD LAB BLOOD ORDERABLES Final R esult [facility] [place] [address] * Lactate, whole blood (05/17/2025 9:59 PM CDT) Pathologist [facility] Lactate, bld 1.4 0.7 - 2.0 mmol/L Blood 05/17/2025 9:59 PM CDT 05/17/2025 10:07 PM CDT Bar Gamble MD LAB BLOOD ORDERABLES Final R esult Performing Organization Address [facility] Co de Phone Number [facility] [place] [address] * (ABNORMAL) Type and screen (05/17/2025 9:59 PM CDT) [facility] ABO Rh O Positive Poppy, indirect Positive(A) [facility] Blood 05/17/2025 9:59 PM CDT 05/17/2025 10:11 PM CDT Narrative [facility] - 05/17/2025 11:01 PM CDT Has the patient had Daratumumab or Isatuximab in the past 6 months?->Unknown Libia Suarez SWEET POTATO DISINTEGRATOR LAB BLOOD BANK TEST ORDERABLE S Final Result Performing Organization Address [facility]/ZIP Co de Phone Number [facility] [place] [address] * Oxyhemoglobin, pulmonary artery (05/17/2025 4:08 PM CDT) Oxyhemoglobin, PA 54.6 % Comment: Interpretive Data No reference range established. Current interpretive data was last revised 2020. Blood 05/17/2025 4:08 PM CDT 05/17/2025 4:25 PM CDT us Bar Gamble MD LAB BLOOD ORDERABLES Final R esult Performing Organization Address City/[facility] Co de Phone Number DULCE MAR[facility] [place] [address] * (ABNORMAL) Hemoglobin total, pulmonary artery (05/17/2025 4:08 PM CDT) Hemoglobin total, PA 10.7(L) 13.0 - 17.5 g/dL Blood 05/17/2025 4:08 PM CDT 05/17/2025 4:25 PM CDT us Bar Gamble MD LAB BLOOD ORDERABLES Final R esult Performing Organization Address City/[facility] Co de Phone Number [facility] [place] [address] * (ABNORMAL) eGFR (05/17/2025 4:08 PM CDT) eGFR 54(L) >=60 mL/min/1. 73 m2 Comment: Interpretive Data Reference Interval Normal >/= 90 mL/min/1.73m2 Mildly decreased* 60 - 89 mL/min/1.73m2 Mildly to moderately decreased 45 - 59 mL/min/1.73m2 Moderately to severely decreased 30 - 44 mL/min/1.73m2 Severely decreased 15 - 29 mL/min/1.73m2 Kidney Failure < 15 mL/min/1.73m2 *Relative to young adult level Estimated glomerular filtration rate is determined by the 2020 CKD-EPI equation recommended by the National Kidney Foundation (A Unifying Approach to GFR Estimation: Recommendations of the NKF-ASK Task Force on Reassessing the Inclusion of Race in Diagnosing Kidney Disease, JASN 2020). The CKD-EPI equation should not be used for patients with unstable renal function and has not been validated in children and those over 70. Current interpretive data was last reviewed 2021. Blood 05/17/2025 4:08 PM CDT 05/17/2025 4:31 PM CDT us Bar Gamble MD LAB BLOOD ORDERABLES Final R esult Performing Organization Address [facility] Co de Phone Number [facility] [place] [address] * Lactate, whole blood (05/17/2025 4:08 PM CDT) Lactate, bld 1.3 0.7 - 2.0 mmol/L Blood 05/17/2025 4:08 PM CDT 05/17/2025 4:25 PM CDT us Zev Cowart MD PhD LAB BLOOD ORDERABLES Fi nal Result Performing Organization Address [facility] de Phone Number [facility] [place] [address] * (ABNORMAL) aPTT (05/17/2025 4:08 PM CDT) aPTT 66(H) 28 - 38 sec Comment: Interpretive Data Heparin therapeutic range: 66.0 - 100.0 seconds. Range based on correlation with therapeutic heparin activity range of 0.3 - 0.7 Units/mL. Current interpretive data was last revised on 2023. Blood 05/17/2025 4:08 PM CDT 05/17/2025 4:29 PM CDT Narrative [facility] - 05/17/2025 4:52 PM CDT STAT PTT timing: - Draw 6 hours after heparin infusion initiation - Draw 6 hours after every dose change until 2 consecutive PTTs are therapeutic - Once 2 consecutive PTTs are therapeutic, obtain with daily labs until infusion is discontinued - - Restart every 6 hour lab draws and follow instructions accordingly if PTT is outside of therapeutic range Do not draw lab from IV line that is actively infusing heparin. Use the opposite arm. If arm with actively infusing heparin must be used, pause the infusion for at least 2 minutes, and draw specimen below the IV site. For patients with a central venous catheter (CVC), lab must be drawn peripherally (not from CVC). Libia Suarez SWEET POTATO DISINTEGRATOR LAB BLOOD ORDERABLES Final Re sult Performing Organization Address City/[facility] Co de Phone Number [facility] [place] [address] * Magnesium (05/17/2025 4:08 PM CDT) [facility] Magnesium 2.2 1.4 - 2.5 mg/dL Blood 05/17/2025 4:08 PM CDT 05/17/2025 4:31 PM CDT Bar Gamble MD LAB BLOOD ORDERABLES Final R esult Performing Organization Address [facility] Co de Phone Number [facility] [place] [address] * (ABNORMAL) Basic metabolic panel (05/17/2025 4:08 PM CDT) [facility] Sodium 139 135 - 145 mmol/L Potassium, pl 4.4 3.3 - 4.9 mmol/L [facility] Chloride 100 97 - 110 mmol/L [facility] CO2 28 22 - 32 mmol/L [facility] Anion gap 11 2 - 15 mmol/L [facility] BUN 38(H) 6 - 25 mg/dL [facility] Creatinine 1.47(H) 0.80 - 1.30 mg/dL [facility] Glucose 162 70 - 199 mg/dL [facility] Comment: Interpretive Data Fasting glucose >/= 126 mg/dl is diagnostic for diabetes. Fasting is defined as no caloric intake for at least 8 hours. Fasting glucose between 100 mg/dl to 125 mg/dl is diagnostic of prediabetes. In a patient with classic symptoms of hyperglycemia or hyperglycemic crisis, a random glucose >/= 200 mg/dl is diagnostic for diabetes. In the absence of unequivocal hyperglycemia, results should be confirmed by repeat testing. The classification and Diagnosis of Diabetes Diabetes Care 2021; 46: S19-S40. Current interpretive data was last revised 2022. Calcium 9.3 8.5 - 10.3 mg/dL [facility] Blood 05/17/2025 4:08 PM CDT 05/17/2025 4:31 PM CDT us Bar Gamble MD LAB BLOOD ORDERABLES Final R esult [facility] [place] [address] * XR Chest 1 View (05/17/2025 12:39 PM CDT) Anatomical Region Laterality Modality Body, Chest N/A Computed Radiogr aphy 05/17/2025 1:37 PM CDT Impressions 05/17/2025 1:48 PM CDT Comparison with 05/17/2025 4:41 AM. Right internal jugular [place]-Jayne catheter with tip overlying the distal right interlobar pulmonary artery. A right peripherally inserted central venous catheter is in place with tip overlying superior vena cava. Right costophrenic angle is out of the field of view. Unchanged small bilateral pleural effusions with associated atelectasis. No pneumothorax. Stable cardiomediastinal silhouette. Dictated by: Magali Cotton MD The radiology attending physician has personally reviewed this study, and had reviewed and/or edited this written report and agrees with it. Electronically signed by: Jessica Jackson M.D. Narrative 05/17/2025 1:48 PM CDT EXAMINATION: 1 view chest radiograph Procedure Note Jessica Jackson MD - 05/17/2025 EXAMINATION: 1 view chest radiograph IMPRESSION: Comparison with 05/17/2025 4:41 AM. Right internal jugular [place]-Jayne catheter with tip overlying the distal right interlobar pulmonary artery. A right peripherally inserted central venous catheter is in place with tip overlying superior vena cava. Right costophrenic angle is out of the field of view. Unchanged small bilateral pleural effusions with associated atelectasis. No pneumothorax. Stable cardiomediastinal silhouette. Dictated by: Magali Cotton MD The radiology attending physician has personally reviewed this study, and had reviewed and/or edited this written report and agrees with it. Electronically signed by: Jessica Jackson M.D. us Andrew Leigh MD IMG XR PROCEDURES Final Result * Oxyhemoglobin, pulmonary artery (05/17/2025 12:34 PM CDT) Oxyhemoglobin, PA 60.2 % Comment: Interpretive Data No reference range established. Current interpretive data was last revised 2020. Blood 05/17/2025 12:3 4 PM CDT 05/17/2025 12:48 PM CDT us Bar Gamble MD LAB BLOOD ORDERABLES Final R esult Performing Organization Address City/[facility]/ZIP Co de Phone Number D[facility] [place] [address] * (ABNORMAL) Hemoglobin total, pulmonary artery (05/17/2025 12:34 PM CDT) Hemoglobin total, PA 10.6(L) 13.0 - 17.5 g/dL Blood 05/17/2025 12:3 4 PM CDT 05/17/2025 12:48 PM CDT us Bar Gamble MD LAB BLOOD ORDERABLES Final R esult [facility] [place] [address] * (ABNORMAL) Lactate, whole blood (05/17/2025 12:34 PM CDT) Lactate, bld 0.6(L) 0.7 - 2.0 mmol/L Blood 05/17/2025 12:3 4 PM CDT 05/17/2025 12:48 PM CDT us Bar Gamble MD LAB BLOOD ORDERABLES Final R esult [facility] [place] [address] * RIGHT HEART CATH (05/17/2025 10:14 AM CDT) Anatomical Region Laterality Modality X-Ray Angiograph y Narrative 05/17/2025 11:20 AM CDT Right Heart Catheterization Report Patient: Gosia Zuniga 1965 Referring: Yaakov Lawrence MD, PhD Performing: Vannesa Gibbs MD Fellow: Soto Landaverde MD Patient Clinical Profile: Gosia Zuniga is a 60 y.o. 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 He is referred today for right heart catheterization and replacement of leave-in [place]. Procedure: 1) Consent was obtained 2) The patient was transported to the catheterization bay, prepped, and draped in the usual sterile fashion. 3) I provided direct [id number] monitoring of conscious sedation which was administered by an independent trained nurse using Fentanyl 12.5 mcg and Midazolam 0.5 mg. Sedation time 32 min. Local anesthesia with 1% lidocaine was used. 4) Venous access was obtained in theLeft Internal Jugular vein using modified Seldinger technique and micropuncture approach. A 8 Indonesian sheath was secured into place. 5) Right heart catheterization was performed with a 7.5 [place] VIP [place] Jayne catheter. The catheter was advanced sequentially to the right atrium, right ventricle, pulmonary artery, and to the pulmonary capillary wedge position with pressures measured at each station and saturations drawn from the pulmonary artery for the estimation of cardiac output. Cardiac output by thermodilution was obtained. 6) Hemostasis - At the conclusion of the case the sheath was sutured into place. 7) Complications - There were no complications. Results: Hemodynamics Noninvasive blood pressure (91/68/76) mmHg Right Heart Pressures (End-expiratory) Right atrial pressure 14 mmHg mean. Right ventricular pressure 28/11 mmHg. Pulmonary artery pressure 31/16/21 mmHg. Pulmonary capillary wedge pressure 14 mmHg mean with V wave to 21mmHg Derived Pressures Transpulmonary gradient 7 mmHg Diastolic pressure gradient 2 mmHg Transsystemic Gradient 62 mmHg Outputs and Resistances BSA 2.08 kg/m2 Hemoglobin 10.5 g/dl Heart Rate 94 beats/min Pulmonary Arterial Saturation 63% Systemic Arterial Saturation 98% AVO2 Difference 5.0 ml/dl Cardiac Output 125 x BSA Method (estimated VO2 260.44 ml/min) = 5.21 L/min, 2.50 L/min/m2. Thermodilution = 4.7 L/min, 2.26 L/min/m2 Vascular Resistances Pulmonary Vascular Resistance 1.3 Wood Units (Zakia), 1.5 Wood Units Systemic Vascular Resistance 11.9 Wood Units (Zakia), 13.2 Wood Units (thermodilution) Diagnostic Impressions: 1) Normal left heart filling pressures. 2) Elevated right heart filling pressures. 3) No pulmonary hypertension. 4) Borderline normal cardiac output at rest on dobutamine 2.5mcg/kg/min. Vannesa Gibsb MD Planning Director Advanced Heart Failure/Cardiac Transplant us Romelia Lerma MD CV CARDIAC CATH PROCEDUR ES Final Result * (ABNORMAL) POCT oxyhemoglobin (05/17/2025 10:07 AM CDT) [employer]GER Oxyhemoglobin 63.0(L) >=65.0 % [employer] MANAGER Hemoglobin 10.7(L) 13.0 - 17.5 g/dL [facility] G[employer] PRESERV[employer] MANAGER O2 content 9.3(L) 15.0 - 22.0 Vol % [facility] Anatomic Site aPOC Pulm Artery [facility] Blood 05/17/2025 10:0 7 AM CDT 05/17/2025 10:07 AM CDT us Zev Cowart MD PhD LAB POCT ORDERABLES - D EVICE Final Result Performing Organization Address [facility] Co de Phone Number [facility] [place] [address] * (ABNORMAL) POCT oxyhemoglobin (05/17/2025 10:06 AM CDT) [employer] MANAGER Oxyhemoglobin 62.6(L) >=65.0 % [employer] MANAGER Hemoglobin 10.3(L) 13.0 - 17.5 g/dL [facility] GAME PRESERVE MANAGER O2 content 9.0(L) 15.0 - 22.0 Vol % [facility] Anatomic Site aPOC Pulm Artery [facility] Blood 05/17/2025 10:0 6 AM CDT 05/17/2025 10:06 AM CDT Zev Cowart MD PhD LAB POCT ORDERABLES - D EVICE Final Result Performing Organization Address [facility] de Phone Number [facility] [place] [address] * XR Chest 1 View (05/17/2025 5:12 AM CDT) Anatomical Region Laterality Modality Body, Chest N/A Digital Radiogra phy 05/17/2025 10:5 2 AM CDT Impressions 05/17/2025 2:10 PM CDT Comparison with 05/16/2025. Right internal jugular [place] catheter is in unchanged position with tip a right lower lobe segmental pulmonary artery. Retraction is recommended. A right peripherally inserted central venous catheter is in place with tip overlying superior vena cava. Unchanged small bilateral pleural effusions with associated atelectasis. Trace pulmonary edema. No pneumothorax. Stable cardiomediastinal silhouette. Dictated by: Magali Cotton MD The radiology attending physician has personally reviewed this study, and had reviewed and/or edited this written report and agrees with it. Electronically signed by: Miguel Angel Ng M.D. Narrative 05/17/2025 2:10 PM CDT EXAMINATION: 1 view chest radiograph Procedure Note Miguel Angel Ng MD - 05/17/2025 EXAMINATION: 1 view chest radiograph IMPRESSION: Comparison with 05/16/2025. Right internal jugular [place] catheter is in unchanged position with tip a right lower lobe segmental pulmonary artery. Retraction is recommended. A right peripherally inserted central venous catheter is in place with tip overlying superior vena cava. Unchanged small bilateral pleural effusions with associated atelectasis. Trace pulmonary edema. No pneumothorax. Stable cardiomediastinal silhouette. Dictated by: Magali Cotton MD The radiology attending physician has personally reviewed this study, and had reviewed and/or edited this written report and agrees with it. Electronically signed by: Miguel Angel Ng M.D. Bar Gamble MD IMG XR PROCEDURES Final Resu lt * Oxyhemoglobin, pulmonary artery (05/17/2025 3:59 AM CDT) Oxyhemoglobin, PA 53.8 % Comment: Interpretive Data No reference range established. Current interpretive data was last revised 2020. Blood 05/17/2025 3:59 AM CDT 05/17/2025 4:22 AM CDT Bar Gamble MD LAB BLOOD ORDERABLES Final R esult Performing Organization Address City/[facility]/ZIP Co de Phone Number [facility] [place] [address] * (ABNORMAL) Hemoglobin total, pulmonary artery (05/17/2025 3:59 AM CDT) Hemoglobin total, PA 11.3(L) 13.0 - 17.5 g/dL Blood 05/17/2025 3:59 AM CDT 05/17/2025 4:22 AM CDT Bar Gamble MD LAB BLOOD ORDERABLES Final R esult [facility] [place] [address] * Potassium, whole blood (05/17/2025 3:59 AM CDT) Potassium, bld 3.9 3.3 - 4.9 mmol/L Blood 05/17/2025 3:59 AM CDT 05/17/2025 4:22 AM CDT us Zev Cowart MD PhD LAB BLOOD ORDERABLES Fi nal Result Performing Organization Address [facility] Co de Phone Number [facility] [place] [address] * (ABNORMAL) eGFR (05/17/2025 3:59 AM CDT) eGFR 57(L) >=60 mL/min/1. 73 m2 Comment: Interpretive Data Reference Interval Normal >/= 90 mL/min/1.73m2 Mildly decreased* 60 - 89 mL/min/1.73m2 Mildly to moderately decreased 45 - 59 mL/min/1.73m2 Moderately to severely decreased 30 - 44 mL/min/1.73m2 Severely decreased 15 - 29 mL/min/1.73m2 Kidney Failure < 15 mL/min/1.73m2 *Relative to young adult level Estimated glomerular filtration rate is determined by the 2020 CKD-EPI equation recommended by the National Kidney Foundation (A Unifying Approach to GFR Estimation: Recommendations of the NKF-ASK Task Force on Reassessing the Inclusion of Race in Diagnosing Kidney Disease, JASN 2020). The CKD-EPI equation should not be used for patients with unstable renal function and has not been validated in children and those over 70. Current interpretive data was last reviewed 2021. Blood 05/17/2025 3:59 AM CDT 05/17/2025 4:28 AM CDT us Bar Gamble MD LAB BLOOD ORDERABLES Final R esult Performing Organization Address City/[facility]/ZIP Co de Phone Number [facility] [place] [address] * Lactate, whole blood (05/17/2025 3:59 AM CDT) Pathologist [facility] Lactate, bld 0.8 0.7 - 2.0 mmol/L Blood 05/17/2025 3:59 AM CDT 05/17/2025 4:22 AM CDT us Zev Cowart MD PhD LAB BLOOD ORDERABLES Fi nal Result Performing Organization Address [facility]/ZIP Co de Phone Number [facility] [place] [address] * (ABNORMAL) aPTT (05/17/2025 3:59 AM CDT) [facility] aPTT 61(H) 28 - 38 sec Comment: Interpretive Data Heparin therapeutic range: 66.0 - 100.0 seconds. Range based on correlation with therapeutic heparin activity range of 0.3 - 0.7 Units/mL. Current interpretive data was last revised on 2023. Blood 05/17/2025 3:59 AM CDT 05/17/2025 4:27 AM CDT Narrative DULCE MARIA [facility] - 05/17/2025 4:50 AM CDT STAT PTT timing: - Draw 6 hours after heparin infusion initiation - Draw 6 hours after every dose change until 2 consecutive PTTs are therapeutic - Once 2 consecutive PTTs are therapeutic, obtain with daily labs until infusion is discontinued - - Restart every 6 hour lab draws and follow instructions accordingly if PTT is outside of therapeutic range Do not draw lab from IV line that is actively infusing heparin. Use the opposite arm. If arm with actively infusing heparin must be used, pause the infusion for at least 2 minutes, and draw specimen below the IV site. For patients with a central venous catheter (CVC), lab must be drawn peripherally (not from CVC). us Libia Suarez SWEET POTAT[employer] DISINTEGRATOR LAB BLOOD ORDERABLES Final Re sult Performing Organization Address City/[facility]/ZIP Co de Phone Number [facility] [place] [address] * (ABNORMAL) CBC without differential (05/17/2025 3:59 AM CDT) Pathologist [facility] WBC 7.59 3.80 - 9.90 K/cumm Hgb 10.5(L) 13.0 - 17.5 g/dL [facility] Hct 32.8(L) 38.9 - 50.3 % [facility] Plt 192 150 - 400 K/cumm [facility] MPV 11.5 9.1 - 12.[address] [facility] RBC 3.88(L) 4.30 - 5.80 M/cumm [facility] MCV 84.5 81.3 - 96.[address] [facility] MCH 27.1 27.1 - 33.[address] [facility] MCHC 32.0(L) 32.3 - 35.7 g/dL [facility] RDW CV 15.6(H) 11.1 - 14.9 % [facility] RDW SD 47.8 35.7 - 48.[address] [facility] NRBC abs 0.00 0.00 - 0.01 K/cumm [facility] Blood 05/17/2025 3:59 AM CDT 05/17/2025 4:28 AM CDT us Bar Gamble MD LAB BLOOD ORDERABLES Final R esult [facility] [place] [address] * Phosphorus (05/17/2025 3:59 AM CDT) [facility] Phosphorus, pl 3.4 2.3 - 4.5 mg/dL Blood 05/17/2025 3:59 AM CDT 05/17/2025 4:28 AM CDT us Zev Cowart MD PhD LAB BLOOD ORDERABLES Fi nal Result [facility] [place] [address] * Magnesium (05/17/2025 3:59 AM CDT) Pathologist [facility] Magnesium 2.1 1.4 - 2.5 mg/dL Blood 05/17/2025 3:59 AM CDT 05/17/2025 4:28 AM CDT us Bar Gamble MD LAB BLOOD ORDERABLES Final R esult Performing Organization Address City/[facility]/ZIP Co de Phone Number DULCE MARIA [facility] [place] [address] * (ABNORMAL) Hepatic function panel (05/17/2025 3:59 AM CDT) [facility] Bilirubin, total 0.7 0.1 - 1.2 mg/dL Bilirubin, direct 0.3 0.1 - 0.3 mg/dL [facility] Protein, pl 6.3(L) 6.5 - 8.5 g/dL [facility] Albumin 3.8 3.5 - 5.0 g/dL [facility] Alk phos 273(H) 40 - 130 Units/L [facility] ALT 19 7 - 55 Units/L [facility] AST 22 10 - 50 Units/L [facility] Blood 05/17/2025 3:59 AM CDT 05/17/2025 4:28 AM CDT us Bar Gamble MD LAB BLOOD ORDERABLES Final R esult DULCE MARIA [facility] [place] [address] * (ABNORMAL) Basic metabolic panel (05/17/2025 3:59 AM CDT) Pathologist [facility] Sodium 140 135 - 145 mmol/L Potassium, pl 4.2 3.3 - 4.9 mmol/L [facility] Chloride 103 97 - 110 mmol/L [facility] CO2 27 22 - 32 mmol/L [facility] Anion gap 10 2 - 15 mmol/L [facility] BUN 39(H) 6 - 25 mg/dL [facility] Creatinine 1.41(H) 0.80 - 1.30 mg/dL [facility] Glucose 119 70 - 199 mg/dL [facility] Comment: Interpretive Data Fasting glucose >/= 126 mg/dl is diagnostic for diabetes. Fasting is defined as no caloric intake for at least 8 hours. Fasting glucose between 100 mg/dl to 125 mg/dl is diagnostic of prediabetes. In a patient with classic symptoms of hyperglycemia or hyperglycemic crisis, a random glucose >/= 200 mg/dl is diagnostic for diabetes. In the absence of unequivocal hyperglycemia, results should be confirmed by repeat testing. The classification and Diagnosis of Diabetes Diabetes Care 2021; 46: S19-S40. Current interpretive data was last revised 2022. Calcium 9.3 8.5 - 10.3 mg/dL [facility] Blood 05/17/2025 3:59 AM CDT 05/17/2025 4:28 AM CDT us Bar Gamble MD LAB BLOOD ORDERABLES Final R esult Performing Organization Address [facility] Co de Phone Number [facility] [place] [address] * Oxyhemoglobin, pulmonary artery (05/16/2025 9:47 PM CDT) Pathologist [facility] Bekah PA 55.0 % Comment: Interpretive Data No reference range established. Current interpretive data was last revised 2020. Blood 05/16/2025 9:47 PM CDT 05/16/2025 9:56 PM CDT us Bar Gamble MD LAB BLOOD ORDERABLES Final R esult Performing Organization Address City/[facility]/ZIP Co de Phone Number [facility] [place] [address] * (ABNORMAL) Hemoglobin total, pulmonary artery (05/16/2025 9:47 PM CDT) Pathologist [facility] Hemoglobin total, PA 11.6(L) 13.0 - 17.5 g/dL Blood 05/16/2025 9:47 PM CDT 05/16/2025 9:56 PM CDT us Bar Gamble MD LAB BLOOD ORDERABLES Final R esult Performing Organization Address City/[facility]/[place] [address] * Potassium, whole blood (05/16/2025 9:47 PM CDT) [facility] Potassium, bld 3.4 3.3 - 4.9 mmol/L Blood 05/16/2025 9:47 PM CDT 05/16/2025 9:56 PM CDT us Bar Gamble MD LAB BLOOD ORDERABLES Final R esult Performing Organization Address City/[facility]/ZIP Co de Phone Number [facility] [place] [address] * Lactate, whole blood (05/16/2025 9:47 PM CDT) [facility] Lactate, bld 0.8 0.7 - 2.0 mmol/L Blood 05/16/2025 9:47 PM CDT 05/16/2025 9:56 PM CDT us Bar Gamble MD LAB BLOOD ORDERABLES Final R esult Performing Organization Address City/[facility]/ZIP Co de Phone Number [facility] [place] [address] * Magnesium (05/16/2025 9:47 PM CDT) [facility] Magnesium 2.1 1.4 - 2.5 mg/dL Blood 05/16/2025 9:47 PM CDT 05/16/2025 10:02 PM CDT Bar Gamble MD LAB BLOOD ORDERABLES Final R esult Performing Organization Address [facility] Co de Phone Number [facility] [place] [address] * Oxyhemoglobin, pulmonary artery (05/16/2025 4:21 PM CDT) [facility] Oxyhemoglobin, PA 59.1 % Comment: Interpretive Data No reference range established. Current interpretive data was last revised 2020. Blood 05/16/2025 4:21 PM CDT 05/16/2025 4:39 PM CDT Bar Gamble MD LAB BLOOD ORDERABLES Final R esult Performing Organization Address [facility] Co de Phone Number [facility] [place] [address] * (ABNORMAL) Hemoglobin total, pulmonary artery (05/16/2025 4:21 PM CDT) [facility] Hemoglobin total, PA 11.6(L) 13.0 - 17.5 g/dL Blood 05/16/2025 4:21 PM CDT 05/16/2025 4:39 PM CDT Bar Gamble MD LAB BLOOD ORDERABLES Final R esult Performing Organization Address [facility] [place] [address] * (ABNORMAL) eGFR (05/16/2025 4:21 PM CDT) [facility] eGFR 54(L) >=60 mL/min/1. 73 m2 Comment: Interpretive Data Reference Interval Normal >/= 90 mL/min/1.73m2 Mildly decreased* 60 - 89 mL/min/1.73m2 Mildly to moderately decreased 45 - 59 mL/min/1.73m2 Moderately to severely decreased 30 - 44 mL/min/1.73m2 Severely decreased 15 - 29 mL/min/1.73m2 Kidney Failure < 15 mL/min/1.73m2 *Relative to young adult level Estimated glomerular filtration rate is determined by the 2020 CKD-EPI equation recommended by the National Kidney Foundation (A Unifying Approach to GFR Estimation: Recommendations of the NKF-ASK Task Force on Reassessing the Inclusion of Race in Diagnosing Kidney Disease, JASN 2020). The CKD-EPI equation should not be used for patients with unstable renal function and has not been validated in children and those over 70. Current interpretive data was last reviewed 2021. Blood 05/16/2025 4:21 PM CDT 05/16/2025 4:50 PM CDT us Bar Gamble MD LAB BLOOD ORDERABLES Final R esult [facility] [place] [address] * (ABNORMAL) Lactate, whole blood (05/16/2025 4:21 PM CDT) Lactate, bld 0.6(L) 0.7 - 2.0 mmol/L Blood 05/16/2025 4:21 PM CDT 05/16/2025 4:39 PM CDT us Bar Gamble MD LAB BLOOD ORDERABLES Final R esult DULCE MARIA [facility] [place] [address] * Magnesium (05/16/2025 4:21 PM CDT) Magnesium 2.2 1.4 - 2.5 mg/dL Blood 05/16/2025 4:21 PM CDT 05/16/2025 4:50 PM CDT Bar Gamble MD LAB BLOOD ORDERABLES Final R esult Performing Organization Address City/[facility]/ZIP Co de Phone Number [facility] [place] [address] * (ABNORMAL) Basic metabolic panel (05/16/2025 4:21 PM CDT) [facility] Sodium 140 135 - 145 mmol/L Potassium, pl 4.0 3.3 - 4.9 mmol/L [facility] Chloride 101 97 - 110 mmol/L [facility] CO2 27 22 - 32 mmol/L [facility] Anion gap 12 2 - 15 mmol/L [facility] BUN 41(H) 6 - 25 mg/dL [facility] Creatinine 1.46(H) 0.80 - 1.30 mg/dL [facility] Glucose 119 70 - 199 mg/dL [facility] Comment: Interpretive Data Fasting glucose >/= 126 mg/dl is diagnostic for diabetes. Fasting is defined as no caloric intake for at least 8 hours. Fasting glucose between 100 mg/dl to 125 mg/dl is diagnostic of prediabetes. In a patient with classic symptoms of hyperglycemia or hyperglycemic crisis, a random glucose >/= 200 mg/dl is diagnostic for diabetes. In the absence of unequivocal hyperglycemia, results should be confirmed by repeat testing. The classification and Diagnosis of Diabetes Diabetes Care 2021; 46: S19-S40. Current interpretive data was last revised 2022. Calcium 9.6 8.5 - 10.3 mg/dL [facility] Blood 05/16/2025 4:21 PM CDT 05/16/2025 4:50 PM CDT Bar Gamble MD LAB BLOOD ORDERABLES Final R esult Performing Organization Address City/[facility]/ZIP Co de Phone Number [facility] [place] [address] * Oxyhemoglobin, pulmonary artery (05/16/2025 8:10 AM CDT) Oxyhemoglobin, PA 69.1 % Comment: Interpretive Data No reference range established. Current interpretive data was last revised 2020. Blood 05/16/2025 8:10 AM CDT 05/16/2025 8:24 AM CDT us Bar Gamble MD LAB BLOOD ORDERABLES Final R esult Performing Organization Address City/[facility] [place] [address] * (ABNORMAL) Hemoglobin total, pulmonary artery (05/16/2025 8:10 AM CDT) Hemoglobin total, PA 11.1(L) 13.0 - 17.5 g/dL Blood 05/16/2025 8:10 AM CDT 05/16/2025 8:24 AM CDT us Bar Gamble MD LAB BLOOD ORDERABLES Final R esult Performing Organization Address City/[facility] Co de Phone Number [facility] [place] [address] * Lactate, whole blood (05/16/2025 8:10 AM CDT) Lactate, bld 0.9 0.7 - 2.0 mmol/L Blood 05/16/2025 8:10 AM CDT 05/16/2025 8:24 AM CDT us Bar Gamble MD LAB BLOOD ORDERABLES Final R esult Performing Organization Address City/[facility] Co de Phone Number [facility] [place] [address] * (ABNORMAL) aPTT (05/16/2025 8:10 AM CDT) Pathologist [facility] aPTT 63(H) 28 - 38 sec Comment: Interpretive Data Heparin therapeutic range: 66.0 - 100.0 seconds. Range based on correlation with therapeutic heparin activity range of 0.3 - 0.7 Units/mL. Current interpretive data was last revised on 2023. Blood 05/16/2025 8:10 AM CDT 05/16/2025 8:37 AM CDT Narrative [facility] - 05/16/2025 8:45 AM CDT STAT PTT timing: - Draw 6 hours after heparin infusion initiation - Draw 6 hours after every dose change until 2 consecutive PTTs are therapeutic - Once 2 consecutive PTTs are therapeutic, obtain with daily labs until infusion is discontinued - - Restart every 6 hour lab draws and follow instructions accordingly if PTT is outside of therapeutic range Do not draw lab from IV line that is actively infusing heparin. Use the opposite arm. If arm with actively infusing heparin must be used, pause the infusion for at least 2 minutes, and draw specimen below the IV site. For patients with a central venous catheter (CVC), lab must be drawn peripherally (not from CVC). us Libia Suarez SWEET POTATO DISINTEGRATOR LAB BLOOD ORDERABLES Final Re sult Performing Organization Address [facility] Co de Phone Number [facility] [place] [address] * Oxyhemoglobin, pulmonary artery (05/16/2025 5:07 AM CDT) Pathologist [facility] Oxyhemoglobin, PA 64.7 % Comment: Interpretive Data No reference range established. Current interpretive data was last revised 2020. Blood 05/16/2025 5:07 AM CDT 05/16/2025 5:19 AM CDT us Bar Gamble MD LAB BLOOD ORDERABLES Final R esult Performing Organization Address City/[facility]/ZIP Co de Phone Number [facility] [place] [address] * (ABNORMAL) Hemoglobin total, pulmonary artery (05/16/2025 5:07 AM CDT) Hemoglobin total, PA 10.9(L) 13.0 - 17.5 g/dL Blood 05/16/2025 5:07 AM CDT 05/16/2025 5:19 AM CDT Bar Gamble MD LAB BLOOD ORDERABLES Final R esult Performing Organization Address [facility]/ZIP Co de Phone Number DULCE MARIA [facility] [place] [address] * (ABNORMAL) eGFR (05/16/2025 5:07 AM CDT) eGFR 52(L) >=60 mL/min/1. 73 m2 Comment: Interpretive Data Reference Interval Normal >/= 90 mL/min/1.73m2 Mildly decreased* 60 - 89 mL/min/1.73m2 Mildly to moderately decreased 45 - 59 mL/min/1.73m2 Moderately to severely decreased 30 - 44 mL/min/1.73m2 Severely decreased 15 - 29 mL/min/1.73m2 Kidney Failure < 15 mL/min/1.73m2 *Relative to young adult level Estimated glomerular filtration rate is determined by the 2020 CKD-EPI equation recommended by the National Kidney Foundation (A Unifying Approach to GFR Estimation: Recommendations of the NKF-ASK Task Force on Reassessing the Inclusion of Race in Diagnosing Kidney Disease, JASN 2020). The CKD-EPI equation should not be used for patients with unstable renal function and has not been validated in children and those over 70. Current interpretive data was last reviewed 2021. Blood 05/16/2025 5:07 AM CDT 05/16/2025 5:28 AM CDT us Bar Gamble MD LAB BLOOD ORDERABLES Final R esult D[facility] [place] [address] * (ABNORMAL) Lactate, whole blood (05/16/2025 5:07 AM CDT) [facility] Lactate, bld 0.6(L) 0.7 - 2.0 mmol/L Blood 05/16/2025 5:07 AM CDT 05/16/2025 5:19 AM CDT us Bar Gamble MD LAB BLOOD ORDERABLES Final R esult Performing Organization Address [facility] de Phone Number [facility] [place] [address] * (ABNORMAL) CBC without differential (05/16/2025 5:07 AM CDT) [facility] WBC 10.14(H) 3.80 - 9.90 K/cumm Hgb 10.3(L) 13.0 - 17.5 g/dL [facility] Hct 31.5(L) 38.9 - 50.3 % [facility] Plt 186 150 - 400 K/cumm [facility] MPV 11.8 9.1 - 12.[address] [facility] RBC 3.77(L) 4.30 - 5.80 M/cumm [facility] MCV 83.6 81.3 - 96.[address] [facility] MCH 27.3 27.1 - 33.[address] [facility] MCHC 32.7 32.3 - 35.7 g/dL [facility] RDW CV 15.5(H) 11.1 - 14.9 % [facility] RDW SD 47.5 35.7 - 48.[address] [facility] NRBC abs 0.00 0.00 - 0.01 K/cumm [facility] Blood 05/16/2025 5:07 AM CDT 05/16/2025 5:28 AM CDT us Bar Gamble MD LAB BLOOD ORDERABLES Final R esult Performing Organization Address City/[facility]/ZIP Co de Phone Number [facility] [place] [address] * Magnesium (05/16/2025 5:07 AM CDT) [facility] Magnesium 2.1 1.4 - 2.5 mg/dL Blood 05/16/2025 5:07 AM CDT 05/16/2025 5:28 AM CDT us Bar Gamble MD LAB BLOOD ORDERABLES Final R esult Performing Organization Address [facility] Co de Phone Number [facility] [place] [address] * (ABNORMAL) Hepatic function panel (05/16/2025 5:07 AM CDT) [facility] Bilirubin, total 0.5 0.1 - 1.2 mg/dL Bilirubin, direct 0.3 0.1 - 0.3 mg/dL [facility] Protein, pl 6.1(L) 6.5 - 8.5 g/dL [facility] Albumin 3.7 3.5 - 5.0 g/dL [facility] Alk phos 275(H) 40 - 130 Units/L [facility] ALT 19 7 - 55 Units/L [facility] AST 22 10 - 50 Units/L [facility] Blood 05/16/2025 5:07 AM CDT 05/16/2025 5:28 AM CDT us Bar Gamble MD LAB BLOOD ORDERABLES Final R esult Performing Organization Address City/[facility]/ZIP Co de Phone Number [facility] [place] [address] * (ABNORMAL) Basic metabolic panel (05/16/2025 5:07 AM CDT) [facility] Sodium 139 135 - 145 mmol/L Potassium, pl 3.2(L) 3.3 - 4.9 mmol/L [facility] Chloride 102 97 - 110 mmol/L [facility] CO2 27 22 - 32 mmol/L [facility] Anion gap 10 2 - 15 mmol/L [facility] BUN 45(H) 6 - 25 mg/dL [facility] Creatinine 1.51(H) 0.80 - 1.30 mg/dL [facility] Glucose 116 70 - 199 mg/dL [facility] Comment: Interpretive Data Fasting glucose >/= 126 mg/dl is diagnostic for diabetes. Fasting is defined as no caloric intake for at least 8 hours. Fasting glucose between 100 mg/dl to 125 mg/dl is diagnostic of prediabetes. In a patient with classic symptoms of hyperglycemia or hyperglycemic crisis, a random glucose >/= 200 mg/dl is diagnostic for diabetes. In the absence of unequivocal hyperglycemia, results should be confirmed by repeat testing. The classification and Diagnosis of Diabetes Diabetes Care 2021; 46: S19-S40. Current interpretive data was last revised 2022. Calcium 8.9 8.5 - 10.3 mg/dL [facility] Blood 05/16/2025 5:07 AM CDT 05/16/2025 5:28 AM CDT us Bar Gamble MD LAB BLOOD ORDERABLES Final R esult [facility] [place] [address] * XR Chest 1 View (05/16/2025 4:51 AM CDT) Anatomical Region Laterality Modality Body, Chest N/A Computed Radiogr aphy 05/16/2025 10:4 6 AM CDT Impressions 05/16/2025 8:22 PM CDT Comparison with 05/15/2025. Right internal jugular [place] catheter is in unchanged position with tip a right lower lobe segmental pulmonary artery. Retraction is recommended. A right peripherally inserted central venous catheter is in place with tip overlying superior vena cava. Unchanged small bilateral pleural effusions with associated atelectasis. No pneumothorax. Stable cardiomediastinal silhouette. Dictated by: Magali Cotton MD The radiology attending physician has personally reviewed this study, and had reviewed and/or edited this written report and agrees with it. Electronically signed by: Dmitry Armas MD, PHD Narrative 05/16/2025 8:22 PM CDT EXAMINATION: 1 view chest radiograph Procedure Note Dmitry Armas MD PhD - 05/16/2025 EXAMINATION: 1 view chest radiograph IMPRESSION: Comparison with 05/15/2025. Right internal jugular [place] catheter is in unchanged position with tip a right lower lobe segmental pulmonary artery. Retraction is recommended. A right peripherally inserted central venous catheter is in place with tip overlying superior vena cava. Unchanged small bilateral pleural effusions with associated atelectasis. No pneumothorax. Stable cardiomediastinal silhouette. Dictated by: Magali Cotton MD The radiology attending physician has personally reviewed this study, and had reviewed and/or edited this written report and agrees with it. Electronically signed by: Dmitry Armas MD, PHD us Bar Gamble MD IMG XR PROCEDURES Final Resu lt * Oxyhemoglobin, pulmonary artery (05/15/2025 11:44 PM CDT) Oxyhemoglobin, PA 55.3 % Comment: Interpretive Data No reference range established. Current interpretive data was last revised 2020. Blood 05/15/2025 11:4 4 PM CDT 05/15/2025 11:53 PM CDT us Bar Gamble MD LAB BLOOD ORDERABLES Final R esult [facility] [place] [address] * (ABNORMAL) Hemoglobin total, pulmonary artery (05/15/2025 11:44 PM CDT) Hemoglobin total, PA 11.8(L) 13.0 - 17.5 g/dL Blood 05/15/2025 11:4 4 PM CDT 05/15/2025 11:53 PM CDT Bar Gamble MD LAB BLOOD ORDERABLES Final R esult Performing Organization Address [facility] Co de Phone Number [facility] [place] [address] * Lactate, whole blood (05/15/2025 11:44 PM CDT) Lactate, bld 0.8 0.7 - 2.0 mmol/L Blood 05/15/2025 11:4 4 PM CDT 05/15/2025 11:53 PM CDT Bar Gamble MD LAB BLOOD ORDERABLES Final R esult Performing Organization Address [facility] Co de Phone Number [facility] [place] [address] * Oxyhemoglobin, pulmonary artery (05/15/2025 5:11 PM CDT) Oxyhemoglobin, PA 55.6 % Comment: Interpretive Data No reference range established. Current interpretive data was last revised 2020. Blood 05/15/2025 5:11 PM CDT 05/15/2025 5:26 PM CDT Bar Gamble MD LAB BLOOD ORDERABLES Final R esult Performing Organization Address [facility] Co de Phone Number [facility] [place] [address] * (ABNORMAL) Hemoglobin total, pulmonary artery (05/15/2025 5:11 PM CDT) Hemoglobin total, PA 11.5(L) 13.0 - 17.5 g/dL Blood 05/15/2025 5:11 PM CDT 05/15/2025 5:26 PM CDT Bar Gamble MD LAB BLOOD ORDERABLES Final R esult Performing Organization Address City/[facility]/ZIP Co de Phone Number [facility] [place] [address] * (ABNORMAL) eGFR (05/15/2025 5:11 PM CDT) eGFR 51(L) >=60 mL/min/1. 73 m2 Comment: Interpretive Data Reference Interval Normal >/= 90 mL/min/1.73m2 Mildly decreased* 60 - 89 mL/min/1.73m2 Mildly to moderately decreased 45 - 59 mL/min/1.73m2 Moderately to severely decreased 30 - 44 mL/min/1.73m2 Severely decreased 15 - 29 mL/min/1.73m2 Kidney Failure < 15 mL/min/1.73m2 *Relative to young adult level Estimated glomerular filtration rate is determined by the 2020 CKD-EPI equation recommended by the National Kidney Foundation (A Unifying Approach to GFR Estimation: Recommendations of the NKF-ASK Task Force on Reassessing the Inclusion of Race in Diagnosing Kidney Disease, JASN 2020). The CKD-EPI equation should not be used for patients with unstable renal function and has not been validated in children and those over 70. Current interpretive data was last reviewed 2021. Blood 05/15/2025 5:11 PM CDT 05/15/2025 5:34 PM CDT us Bar Gamble MD LAB BLOOD ORDERABLES Final R esult D[facility] MARIA ARANDA [facility] [place] [address] * Lactate, whole blood (05/15/2025 5:11 PM CDT) Lactate, bld 1.0 0.7 - 2.0 mmol/L Blood 05/15/2025 5:11 PM CDT 05/15/2025 5:26 PM CDT Bar Gamble MD LAB BLOOD ORDERABLES Final R esult [facility] [place] [address] * Magnesium (05/15/2025 5:11 PM CDT) Pathologist [facility] Magnesium 2.1 1.4 - 2.5 mg/dL Blood 05/15/2025 5:11 PM CDT 05/15/2025 5:34 PM CDT Bar Gamble MD LAB BLOOD ORDERABLES Final R esult Performing Organization Address [facility] Co de Phone Number [facility] [place] [address] * (ABNORMAL) Basic metabolic panel (05/15/2025 5:11 PM CDT) [facility] Sodium 139 135 - 145 mmol/L Potassium, pl 3.7 3.3 - 4.9 mmol/L [facility] Chloride 102 97 - 110 mmol/L [facility] CO2 27 22 - 32 mmol/L [facility] Anion gap 10 2 - 15 mmol/L [facility] BUN 43(H) 6 - 25 mg/dL [facility] Creatinine 1.54(H) 0.80 - 1.30 mg/dL [facility] Glucose 138 70 - 199 mg/dL [facility] Comment: Interpretive Data Fasting glucose >/= 126 mg/dl is diagnostic for diabetes. Fasting is defined as no caloric intake for at least 8 hours. Fasting glucose between 100 mg/dl to 125 mg/dl is diagnostic of prediabetes. In a patient with classic symptoms of hyperglycemia or hyperglycemic crisis, a random glucose >/= 200 mg/dl is diagnostic for diabetes. In the absence of unequivocal hyperglycemia, results should be confirmed by repeat testing. The classification and Diagnosis of Diabetes Diabetes Care 2021; 46: S19-S40. Current interpretive data was last revised 2022. Calcium 9.0 8.5 - 10.3 mg/dL [facility] Blood 05/15/2025 5:11 PM CDT 05/15/2025 5:34 PM CDT Bar Gamble MD LAB BLOOD ORDERABLES Final R esult Performing Organization Address [facility] Co de Phone Number [facility] [place] [address] * Oxyhemoglobin, pulmonary artery (05/15/2025 11:23 AM CDT) Oxyhemoglobin, PA 55.8 % Comment: Interpretive Data No reference range established. Current interpretive data was last revised 2020. Blood 05/15/2025 11:2 3 AM CDT 05/15/2025 11:37 AM CDT us Bar Gamble MD LAB BLOOD ORDERABLES Final R esult Performing Organization Address [facility] [place] [address] * (ABNORMAL) Hemoglobin total, pulmonary artery (05/15/2025 11:23 AM CDT) Hemoglobin total, PA 11.2(L) 13.0 - 17.5 g/dL Blood 05/15/2025 11:2 3 AM CDT 05/15/2025 11:37 AM CDT Bar Gamble MD LAB BLOOD ORDERABLES Final R esult Performing Organization Address City/[facility] [place] [address] * Lactate, whole blood (05/15/2025 11:23 AM CDT) Lactate, bld 1.2 0.7 - 2.0 mmol/L Blood 05/15/2025 11:2 3 AM CDT 05/15/2025 11:37 AM CDT Bar Gamble MD LAB BLOOD ORDERABLES Final R esult D[facility] MARIA [facility] [place] [address] * XR Chest 1 View (05/15/2025 5:05 AM CDT) Anatomical Region Laterality Modality Body, Chest N/A Digital Radiogra phy 05/15/2025 10:4 8 AM CDT Impressions 05/15/2025 11:08 AM CDT Comparison with 05/14/2025. Right internal jugular [place] catheter is in unchanged position with tip overlying a right lower lobe segmental pulmonary artery. Retraction is recommended. A right peripherally inserted central venous catheter is in place with tip overlying superior vena cava. Unchanged small bilateral pleural effusions with associated atelectasis. No pneumothorax. Stable cardiomediastinal silhouette. Dictated by: Magali Cotton MD The radiology attending physician has personally reviewed this study, and had reviewed and/or edited this written report and agrees with it. Electronically signed by: Lorenzo Weir M.D. Narrative 05/15/2025 11:08 AM CDT EXAMINATION: 1 view chest radiograph Procedure Note Lorenzo Weir MD - 05/15/2025 EXAMINATION: 1 view chest radiograph IMPRESSION: Comparison with 05/14/2025. Right internal jugular [place] catheter is in unchanged position with tip overlying a right lower lobe segmental pulmonary artery. Retraction is recommended. A right peripherally inserted central venous catheter is in place with tip overlying superior vena cava. Unchanged small bilateral pleural effusions with associated atelectasis. No pneumothorax. Stable cardiomediastinal silhouette. Dictated by: Magali Cotton MD The radiology attending physician has personally reviewed this study, and had reviewed and/or edited this written report and agrees with it. Electronically signed by: Lorenzo Weir M.D. us Bar Gamble MD IMG XR PROCEDURES Final Resu lt * Oxyhemoglobin, pulmonary artery (05/15/2025 5:03 AM CDT) Oxyhemoglobin, PA 53.5 % Comment: Interpretive Data No reference range established. Current interpretive data was last revised 2020. Blood 05/15/2025 5:03 AM CDT 05/15/2025 5:25 AM CDT us Bar Gamble MD LAB BLOOD ORDERABLES Final R esult Performing Organization Address City/[facility]/ZIP Co de Phone Number [facility] [place] [address] * (ABNORMAL) Hemoglobin total, pulmonary artery (05/15/2025 5:03 AM CDT) Hemoglobin total, PA 11.5(L) 13.0 - 17.5 g/dL Blood 05/15/2025 5:03 AM CDT 05/15/2025 5:25 AM CDT us Bar Gamble MD LAB BLOOD ORDERABLES Final R esult Performing Organization Address City/[facility]/ZIP Co de Phone Number [facility] [place] [address] * Erythropoietin (05/15/2025 5:03 AM CDT) Erythropoietin 16.7 2.6 - 18.5 mIUnits/mL [facility] Comment: Test Performed by: [facility] [address] [place] [address] Industrial Cook: Milagros Henriquez Ph.D.; CLIA# [id number] Blood 05/15/2025 5:03 AM CDT 05/15/2025 5:25 AM CDT us Zev Cowart MD PhD LAB BLOOD ORDERABLES Fi nal Result [facility] [place] [address] [facility] * Lactate, whole blood (05/15/2025 5:03 AM CDT) Lactate, bld 0.9 0.7 - 2.0 mmol/L Blood 05/15/2025 5:03 AM CDT 05/15/2025 5:25 AM CDT Bar Gamble MD LAB BLOOD ORDERABLES Final R esult Performing Organization Address [facility] Co de Phone Number [facility] [place] [address] * (ABNORMAL) aPTT (05/15/2025 5:03 AM CDT) Pathologist [facility] aPTT 60(H) 28 - 38 sec Comment: Interpretive Data Heparin therapeutic range: 66.0 - 100.0 seconds. Range based on correlation with therapeutic heparin activity range of 0.3 - 0.7 Units/mL. Current interpretive data was last revised on 2023. Blood 05/15/2025 5:03 AM CDT 05/15/2025 5:38 AM CDT Narrative [facility] - 05/15/2025 5:49 AM CDT STAT PTT timing: - Draw 6 hours after heparin infusion initiation - Draw 6 hours after every dose change until 2 consecutive PTTs are therapeutic - Once 2 consecutive PTTs are therapeutic, obtain with daily labs until infusion is discontinued - - Restart every 6 hour lab draws and follow instructions accordingly if PTT is outside of therapeutic range Do not draw lab from IV line that is actively infusing heparin. Use the opposite arm. If arm with actively infusing heparin must be used, pause the infusion for at least 2 minutes, and draw specimen below the IV site. For patients with a central venous catheter (CVC), lab must be drawn peripherally (not from CVC). us Libia Suarez SWEET [employer] DISINTEGRATOR LAB BLOOD ORDERABLES Final Re sult Performing Organization Address [facility]/ZIP Co de Phone Number [facility] [place] [address] * (ABNORMAL) CBC without differential (05/15/2025 5:03 AM CDT) [facility] WBC 8.01 3.80 - 9.90 K/cumm Hgb 10.6(L) 13.0 - 17.5 g/dL [facility] Hct 32.9(L) 38.9 - 50.3 % [facility] Plt 184 150 - 400 K/cumm [facility] MPV 12.0 9.1 - 12.[address] [facility] RBC 3.94(L) 4.30 - 5.80 M/cumm [facility] MCV 83.5 81.3 - 96.[address] [facility] MCH 26.9(L) 27.1 - 33.[address] [facility] MCHC 32.2(L) 32.3 - 35.7 g/dL [facility] RDW CV 15.4(H) 11.1 - 14.9 % [facility] RDW SD 47.8 35.7 - 48.[address] [facility] NRBC abs 0.00 0.00 - 0.01 K/cumm [facility] Blood 05/15/2025 5:03 AM CDT 05/15/2025 5:25 AM CDT Bar Gamble MD LAB BLOOD ORDERABLES Final R esult [facility] [place] [address] * Antibody identification (05/14/2025 10:57 PM CDT) [facility] Antibody ID 1 Anti-CD38 Comment:Panreactive -CD38 on reagent RBCs reacting with anti-CD38 therapy. DTT treatment removes cell surface CD38 and allows detection of common clinically significant antibodies except those against Dilma antigens. TRANSFUSION 2015;55;[id number] Blood 05/14/2025 10:5 7 PM CDT 05/14/2025 10:57 PM CDT us Libia Suarez SWEET P[employer] DISINTEGRATOR LAB BLOOD BANK TEST ORDERABLE S Final Result Performing Organization Address [facility] Co de Phone Number [facility] [place] [address] * Oxyhemoglobin, pulmonary artery (05/14/2025 8:39 PM CDT) Oxyhemoglobin, PA 55.6 % Comment: Interpretive Data No reference range established. Current interpretive data was last revised 2020. Blood 05/14/2025 8:39 PM CDT 05/14/2025 9:06 PM CDT us Bar Gamble MD LAB BLOOD ORDERABLES Final R esult Performing Organization Address [facility] Co de Phone Number [facility] [place] [address] * (ABNORMAL) Hemoglobin total, pulmonary artery (05/14/2025 8:39 PM CDT) Hemoglobin total, PA 10.7(L) 13.0 - 17.5 g/dL Blood 05/14/2025 8:39 PM CDT 05/14/2025 9:06 PM CDT us Bar Gamble MD LAB BLOOD ORDERABLES Final R esult Performing Organization Address [facility] Co de Phone Number [facility] [place] [address] * Potassium, whole blood (05/14/2025 8:39 PM CDT) Potassium, bld 3.4 3.3 - 4.9 mmol/L Blood 05/14/2025 8:39 PM CDT 05/14/2025 9:06 PM CDT us Zev Cowart MD PhD LAB BLOOD ORDERABLES Fi nal Result Performing Organization Address [facility] Co de Phone Number [facility] [place] [address] * Lactate, whole blood (05/14/2025 8:39 PM CDT) Lactate, bld 0.8 0.7 - 2.0 mmol/L Blood 05/14/2025 8:39 PM CDT 05/14/2025 9:06 PM CDT us Bar Gamble MD LAB BLOOD ORDERABLES Final R esult Performing Organization Address [facility] Co de Phone Number [facility] [place] [address] * (ABNORMAL) Type and screen (05/14/2025 8:39 PM CDT) ABO Rh O Positive Poppy, indirect Positive(A) [facility] Blood 05/14/2025 8:39 PM CDT 05/14/2025 9:39 PM CDT Narrative [facility] - 05/14/2025 10:57 PM CDT Has the patient had Daratumumab or Isatuximab in the past 6 months?->Unknown us Libia Suarez SWE[employer] DISINTEGRATOR LAB BLOOD BANK TEST ORDERABLE S Final Result Performing Organization Address [facility] [place] [address] * Oxyhemoglobin, pulmonary artery (05/14/2025 4:01 PM CDT) Oxyhemoglobin, PA 58.4 % Comment: Interpretive Data No reference range established. Current interpretive data was last revised 2020. Blood 05/14/2025 4:01 PM CDT 05/14/2025 4:30 PM CDT Bar Gamble MD LAB BLOOD ORDERABLES Final R esult Performing Organization Address [facility] Co de Phone Number [facility] [place] [address] * (ABNORMAL) Hemoglobin total, pulmonary artery (05/14/2025 4:01 PM CDT) Hemoglobin total, PA 11.6(L) 13.0 - 17.5 g/dL Blood 05/14/2025 4:01 PM CDT 05/14/2025 4:30 PM CDT us Bar Gamble MD LAB BLOOD ORDERABLES Final R esult Performing Organization Address [facility] de Phone Number [facility] [place] [address] * (ABNORMAL) eGFR (05/14/2025 4:01 PM CDT) eGFR 55(L) >=60 mL/min/1. 73 m2 Comment: Interpretive Data Reference Interval Normal >/= 90 mL/min/1.73m2 Mildly decreased* 60 - 89 mL/min/1.73m2 Mildly to moderately decreased 45 - 59 mL/min/1.73m2 Moderately to severely decreased 30 - 44 mL/min/1.73m2 Severely decreased 15 - 29 mL/min/1.73m2 Kidney Failure < 15 mL/min/1.73m2 *Relative to young adult level Estimated glomerular filtration rate is determined by the 2020 CKD-EPI equation recommended by the National Kidney Foundation (A Unifying Approach to GFR Estimation: Recommendations of the NKF-ASK Task Force on Reassessing the Inclusion of Race in Diagnosing Kidney Disease, JASN 202). The CKD-EPI equation should not be used for patients with unstable renal function and has not been validated in children and those over 70. Current interpretive data was last reviewed 2021. Blood 05/14/2025 4:01 PM CDT 05/14/2025 4:44 PM CDT Bar Gamble MD LAB BLOOD ORDERABLES Final R esult Performing Organization Address [facility] Co de Phone Number [facility] [place] [address] * Lactate, whole blood (05/14/2025 4:01 PM CDT) Pathologist [facility] Lactate, bld 0.7 0.7 - 2.0 mmol/L Blood 05/14/2025 4:01 PM CDT 05/14/2025 4:23 PM CDT Bar Gamble MD LAB BLOOD ORDERABLES Final R esult Performing Organization Address [facility] [place] [address] * Magnesium (05/14/2025 4:01 PM CDT) [facility] Magnesium 2.2 1.4 - 2.5 mg/dL Blood 05/14/2025 4:01 PM CDT 05/14/2025 4:44 PM CDT Bar Gamble MD LAB BLOOD ORDERABLES Final R esult Performing Organization Address [facility] [place] [address] * (ABNORMAL) Basic metabolic panel (05/14/2025 4:01 PM CDT) Pathologist [facility] Sodium 137 135 - 145 mmol/L Potassium, pl 4.1 3.3 - 4.9 mmol/L [facility] Chloride 99 97 - 110 mmol/L [facility] CO2 28 22 - 32 mmol/L [facility] Anion gap 10 2 - 15 mmol/L [facility] BUN 42(H) 6 - 25 mg/dL [facility] Creatinine 1.45(H) 0.80 - 1.30 mg/dL [facility] Glucose 114 70 - 199 mg/dL [facility] Comment: Interpretive Data Fasting glucose >/= 126 mg/dl is diagnostic for diabetes. Fasting is defined as no caloric intake for at least 8 hours. Fasting glucose between 100 mg/dl to 125 mg/dl is diagnostic of prediabetes. In a patient with classic symptoms of hyperglycemia or hyperglycemic crisis, a random glucose >/= 200 mg/dl is diagnostic for diabetes. In the absence of unequivocal hyperglycemia, results should be confirmed by repeat testing. The classification and Diagnosis of Diabetes Diabetes Care 2021; 46: S19-S40. Current interpretive data was last revised 2022. Calcium 9.0 8.5 - 10.3 mg/dL [facility] Blood 05/14/2025 4:01 PM CDT 05/14/2025 4:44 PM CDT us Bar Gamble MD LAB BLOOD ORDERABLES Final R esult Performing Organization Address City/[facility] Co de Phone Number [facility] [place] [address] * Oxyhemoglobin, pulmonary artery (05/14/2025 10:58 AM CDT) Pathologist WILMAN Becerra 61.5 % Comment: Interpretive Data No reference range established. Current interpretive data was last revised 2020. Blood 05/14/2025 10:5 8 AM CDT 05/14/2025 11:11 AM CDT us Bar Gamble MD LAB BLOOD ORDERABLES Final R esult Performing Organization Address City/[facility]/ZIP Co de Phone Number [facility] [place] [address] * (ABNORMAL) Hemoglobin total, pulmonary artery (05/14/2025 10:58 AM CDT) Hemoglobin total, PA 11.1(L) 13.0 - 17.5 g/dL Blood 05/14/2025 10:5 8 AM CDT 05/14/2025 11:11 AM CDT us Bar Gamble MD LAB BLOOD ORDERABLES Final R esult Performing Organization Address [facility] Co de Phone Number [facility] [place] [address] * Lactate, whole blood (05/14/2025 10:58 AM CDT) Lactate, bld 1.0 0.7 - 2.0 mmol/L Blood 05/14/2025 10:5 8 AM CDT 05/14/2025 11:11 AM CDT us Bar Gamble MD LAB BLOOD ORDERABLES Final R esult Performing Organization Address [facility] [place] [address] * Oxyhemoglobin, pulmonary artery (05/14/2025 5:26 AM CDT) Oxyhemoglobin, PA 60.3 % Comment: Interpretive Data No reference range established. Current interpretive data was last revised 2020. Blood 05/14/2025 5:26 AM CDT 05/14/2025 5:51 AM CDT us Bar Gamble MD LAB BLOOD ORDERABLES Final R esult Performing Organization Address [facility] Co de Phone Number [facility] [place] [address] * (ABNORMAL) Hemoglobin total, pulmonary artery (05/14/2025 5:26 AM CDT) Hemoglobin total, PA 11.0(L) 13.0 - 17.5 g/dL Blood 05/14/2025 5:26 AM CDT 05/14/2025 5:51 AM CDT us Bar Gamble MD LAB BLOOD ORDERABLES Final R esult Performing Organization Address [facility] Co de Phone Number D[facility] [place] [address] * eGFR (05/14/2025 5:26 AM CDT) eGFR 60 >=60 mL/min/1. 73 m2 Comment: Interpretive Data Reference Interval Normal >/= 90 mL/min/1.73m2 Mildly decreased* 60 - 89 mL/min/1.73m2 Mildly to moderately decreased 45 - 59 mL/min/1.73m2 Moderately to severely decreased 30 - 44 mL/min/1.73m2 Severely decreased 15 - 29 mL/min/1.73m2 Kidney Failure < 15 mL/min/1.73m2 *Relative to young adult level Estimated glomerular filtration rate is determined by the 2020 CKD-EPI equation recommended by the National Kidney Foundation (A Unifying Approach to GFR Estimation: Recommendations of the NKF-ASK Task Force on Reassessing the Inclusion of Race in Diagnosing Kidney Disease, JASN 2020). The CKD-EPI equation should not be used for patients with unstable renal function and has not been validated in children and those over 70. Current interpretive data was last reviewed 2021. Blood 05/14/2025 5:26 AM CDT 05/14/2025 6:02 AM CDT us Bar Gamble MD LAB BLOOD ORDERABLES Final R esult Performing Organization Address City/[facility]/ZIP Co de Phone Number D[facility] [place] [address] * (ABNORMAL) Lactate, whole blood (05/14/2025 5:26 AM CDT) [facility] Lactate, bld 0.6(L) 0.7 - 2.0 mmol/L Blood 05/14/2025 5:26 AM CDT 05/14/2025 5:51 AM CDT Bar Gamble MD LAB BLOOD ORDERABLES Final R esult Performing Organization Address [facility] Co de Phone Number [facility] [place] [address] * (ABNORMAL) aPTT (05/14/2025 5:26 AM CDT) [facility] aPTT 63(H) 28 - 38 sec Comment: Interpretive Data Heparin therapeutic range: 66.0 - 100.0 seconds. Range based on correlation with therapeutic heparin activity range of 0.3 - 0.7 Units/mL. Current interpretive data was last revised on 2023. Blood 05/14/2025 5:26 AM CDT 05/14/2025 6:01 AM CDT Narrative [facility] - 05/14/2025 7:34 AM CDT STAT PTT timing: - Draw 6 hours after heparin infusion initiation - Draw 6 hours after every dose change until 2 consecutive PTTs are therapeutic - Once 2 consecutive PTTs are therapeutic, obtain with daily labs until infusion is discontinued - - Restart every 6 hour lab draws and follow instructions accordingly if PTT is outside of therapeutic range Do not draw lab from IV line that is actively infusing heparin. Use the opposite arm. If arm with actively infusing heparin must be used, pause the infusion for at least 2 minutes, and draw specimen below the IV site. For patients with a central venous catheter (CVC), lab must be drawn peripherally (not from CVC). us Libia Suarez [employer] DISINTEGRATOR LAB BLOOD ORDERABLES Final Re sult Performing Organization Address [facility]/ZIP Co de Phone Number [facility] [place] [address] * (ABNORMAL) CBC without differential (05/14/2025 5:26 AM CDT) WBC 8.46 3.80 - 9.90 K/cumm Hgb 10.3(L) 13.0 - 17.5 g/dL [facility] Hct 32.0(L) 38.9 - 50.3 % [facility] Plt 172 150 - 400 K/cumm [facility] MPV 11.8 9.1 - 12.[address] [facility] RBC 3.83(L) 4.30 - 5.80 M/cumm [facility] MCV 83.6 81.3 - 96.[address] [facility] MCH 26.9(L) 27.1 - 33.[address] [facility] MCHC 32.2(L) 32.3 - 35.7 g/dL [facility] RDW CV 15.4(H) 11.1 - 14.9 % [facility] RDW SD 46.8 35.7 - 48.[address] [facility] NRBC abs 0.00 0.00 - 0.01 K/cumm [facility] Blood 05/14/2025 5:26 AM CDT 05/14/2025 6:02 AM CDT us Bar Gamble MD LAB BLOOD ORDERABLES Final R esult Performing Organization Address City/[facility] Co de Phone Number [facility] [place] [address] * Magnesium (05/14/2025 5:26 AM CDT) Pathologist [facility] Magnesium 2.2 1.4 - 2.5 mg/dL Blood 05/14/2025 5:26 AM CDT 05/14/2025 6:02 AM CDT Bar Gamble MD LAB BLOOD ORDERABLES Final R esult Performing Organization Address City/[facility]/ZIP Co de Phone Number [facility] [place] [address] * (ABNORMAL) Hepatic function panel (05/14/2025 5:26 AM CDT) [facility] Bilirubin, total 0.6 0.1 - 1.2 mg/dL Bilirubin, direct 0.3 0.1 - 0.3 mg/dL [facility] Protein, pl 5.9(L) 6.5 - 8.5 g/dL [facility] Albumin 3.7 3.5 - 5.0 g/dL [facility] Alk phos 269(H) 40 - 130 Units/L [facility] ALT 19 7 - 55 Units/L [facility] AST 22 10 - 50 Units/L [facility] Blood 05/14/2025 5:26 AM CDT 05/14/2025 6:02 AM CDT us Bar Gamble MD LAB BLOOD ORDERABLES Final R esult [facility] [place] [address] * (ABNORMAL) Basic metabolic panel (05/14/2025 5:26 AM CDT) [facility] Sodium 139 135 - 145 mmol/L Potassium, pl 3.5 3.3 - 4.9 mmol/L [facility] Chloride 101 97 - 110 mmol/L [facility] CO2 28 22 - 32 mmol/L [facility] Anion gap 10 2 - 15 mmol/L [facility] BUN 42(H) 6 - 25 mg/dL [facility] Creatinine 1.34(H) 0.80 - 1.30 mg/dL [facility] Glucose 109 70 - 199 mg/dL [facility] Comment: Interpretive Data Fasting glucose >/= 126 mg/dl is diagnostic for diabetes. Fasting is defined as no caloric intake for at least 8 hours. Fasting glucose between 100 mg/dl to 125 mg/dl is diagnostic of prediabetes. In a patient with classic symptoms of hyperglycemia or hyperglycemic crisis, a random glucose >/= 200 mg/dl is diagnostic for diabetes. In the absence of unequivocal hyperglycemia, results should be confirmed by repeat testing. The classification and Diagnosis of Diabetes Diabetes Care 202; 46: S19-S40. Current interpretive data was last revised 2022. Calcium 9.0 8.5 - 10.3 mg/dL [facility] Blood 05/14/2025 5:26 AM CDT 05/14/2025 6:02 AM CDT Bar Gamble MD LAB BLOOD ORDERABLES Final R esult [facility] [place] [address] * XR Chest 1 View (05/14/2025 5:18 AM CDT) Anatomical Region Laterality Modality Body, Chest N/A Computed Radiogr aphy 05/14/2025 10:5 6 AM CDT Impressions 05/14/2025 11:22 AM CDT Comparison with 05/13/2025. Right internal jugular [place] catheter tip overlies a right lower lobe segmental pulmonary artery. Retraction is recommended. A right peripherally inserted central venous catheter is in place with tip overlying superior vena cava. Unchanged small bilateral pleural effusions with associated atelectasis. No pneumothorax. Stable cardiomediastinal silhouette. Dictated by: Magali Cotton MD The radiology attending physician has personally reviewed this study, and had reviewed and/or edited this written report and agrees with it. Electronically signed by: Jessica Jackson M.D. Narrative 05/14/2025 11:22 AM CDT EXAMINATION: 1 view chest radiograph Procedure Note Jessica Jackson MD - 05/14/2025 EXAMINATION: 1 view chest radiograph IMPRESSION: Comparison with 05/13/2025. Right internal jugular [place] catheter tip overlies a right lower lobe segmental pulmonary artery. Retraction is recommended. A right peripherally inserted central venous catheter is in place with tip overlying superior vena cava. Unchanged small bilateral pleural effusions with associated atelectasis. No pneumothorax. Stable cardiomediastinal silhouette. Dictated by: Magali Cotton MD The radiology attending physician has personally reviewed this study, and had reviewed and/or edited this written report and agrees with it. Electronically signed by: Jessica Jackson M.D. us Bar Gamble MD IMG XR PROCEDURES Final Resu lt * Oxyhemoglobin, pulmonary artery (05/13/2025 9:15 PM CDT) Oxyhemoglobin, PA 60.5 % Comment: Interpretive Data No reference range established. Current interpretive data was last revised 2020. Blood 05/13/2025 9:15 PM CDT 05/13/2025 10:13 PM CDT us Bar Gamble MD LAB BLOOD ORDERABLES Final R esult Performing Organization Address [facility] Co de Phone Number [facility] [place] [address] * Hemoglobin total, pulmonary artery (05/13/2025 9:15 PM CDT) Hemoglobin total, PA 13.8 13.0 - 17.5 g/dL Blood 05/13/2025 9:15 PM CDT 05/13/2025 10:13 PM CDT us Bar Gamble MD LAB BLOOD ORDERABLES Final R esult Performing Organization Address [facility] Co de Phone Number [facility] [place] [address] * Potassium, whole blood (05/13/2025 9:15 PM CDT) Potassium, bld 4.1 3.3 - 4.9 mmol/L Blood 05/13/2025 9:15 PM CDT 05/13/2025 10:13 PM CDT Kendal Block MD LAB BLOOD ORDERABLES Final R esult Performing Organization Address [facility] Co de Phone Number [facility] [place] [address] * Lactate, whole blood (05/13/2025 9:15 PM CDT) Lactate, bld 1.0 0.7 - 2.0 mmol/L Blood 05/13/2025 9:15 PM CDT 05/13/2025 10:13 PM CDT us Bar Gamble MD LAB BLOOD ORDERABLES Final R esult Performing Organization Address [facility] de Phone Number [facility] [place] [address] * Oxyhemoglobin, pulmonary artery (05/13/2025 4:34 PM CDT) Oxyhemoglobin, PA 54.3 % Comment: Interpretive Data No reference range established. Current interpretive data was last revised 2020. Blood 05/13/2025 4:3 4 PM CDT 05/13/2025 4:48 PM CDT Bar Gamble MD LAB BLOOD ORDERABLES Final R esult Performing Organization Address [facility] de Phone Number [facility] [place] [address] * (ABNORMAL) Hemoglobin total, pulmonary artery (05/13/2025 4:34 PM CDT) Hemoglobin total, PA 11.5(L) 13.0 - 17.5 g/dL Blood 05/13/2025 4:34 PM CDT 05/13/2025 4:48 PM CDT Bar Gamble MD LAB BLOOD ORDERABLES Final R esult Performing Organization Address [facility] Co de Phone Number [facility] [place] [address] * eGFR (05/13/2025 4:34 PM CDT) eGFR 62 >=60 mL/min/1. 73 m2 Comment: Interpretive Data Reference Interval Normal >/= 90 mL/min/1.73m2 Mildly decreased* 60 - 89 mL/min/1.73m2 Mildly to moderately decreased 45 - 59 mL/min/1.73m2 Moderately to severely decreased 30 - 44 mL/min/1.73m2 Severely decreased 15 - 29 mL/min/1.73m2 Kidney Failure < 15 mL/min/1.73m2 *Relative to young adult level Estimated glomerular filtration rate is determined by the 2020 CKD-EPI equation recommended by the National Kidney Foundation (A Unifying Approach to GFR Estimation: Recommendations of the NKF-ASK Task Force on Reassessing the Inclusion of Race in Diagnosing Kidney Disease, JASN 2020). The CKD-EPI equation should not be used for patients with unstable renal function and has not been validated in children and those over 70. Current interpretive data was last reviewed 2021. Blood 05/13/2025 4:34 PM CDT 05/13/2025 4:53 PM CDT us Bar Gamble MD LAB BLOOD ORDERABLES Final R esult Performing Organization Address City/[facility]/ZIP Co de Phone Number D[facility] [place] [address] * Lactate, whole blood (05/13/2025 4:34 PM CDT) Lactate, bld 0.9 0.7 - 2.0 mmol/L Blood 05/13/2025 4:34 PM CDT 05/13/2025 4:48 PM CDT Bar Gamble MD LAB BLOOD ORDERABLES Final R esult [facility] [place] [address] * Magnesium (05/13/2025 4:34 PM CDT) Pathologist [facility] Magnesium 2.1 1.4 - 2.5 mg/dL Blood 05/13/2025 4:34 PM CDT 05/13/2025 4:53 PM CDT aBr Gamble MD LAB BLOOD ORDERABLES Final R esult [facility] [place] [address] * (ABNORMAL) Basic metabolic panel (05/13/2025 4:34 PM CDT) [facility] Sodium 137 135 - 145 mmol/L Potassium, pl 4.0 3.3 - 4.9 mmol/L [facility] Chloride 101 97 - 110 mmol/L [facility] CO2 26 22 - 32 mmol/L [facility] Anion gap 10 2 - 15 mmol/L [facility] BUN 42(H) 6 - 25 mg/dL [facility] Creatinine 1.31(H) 0.80 - 1.30 mg/dL [facility] Glucose 139 70 - 199 mg/dL [facility] Comment: Interpretive Data Fasting glucose >/= 126 mg/dl is diagnostic for diabetes. Fasting is defined as no caloric intake for at least 8 hours. Fasting glucose between 100 mg/dl to 125 mg/dl is diagnostic of prediabetes. In a patient with classic symptoms of hyperglycemia or hyperglycemic crisis, a random glucose >/= 200 mg/dl is diagnostic for diabetes. In the absence of unequivocal hyperglycemia, results should be confirmed by repeat testing. The classification and Diagnosis of Diabetes Diabetes Care 202; 46: S19-S40. Current interpretive data was last revised 2022. Calcium 9.2 8.5 - 10.3 mg/dL [facility] Blood 05/13/2025 4:34 PM CDT 05/13/2025 4:53 PM CDT us Bar Gamble MD LAB BLOOD ORDERABLES Final R esult Performing Organization Address [facility] Co de Phone Number [facility] [place] [address] * Potassium, whole blood (05/13/2025 11:24 AM CDT) Potassium, bld 4.0 3.3 - 4.9 mmol/L Blood 05/13/2025 11:2 4 AM CDT 05/13/2025 11:38 AM CDT Bar Gamble MD LAB BLOOD ORDERABLES Final R esult Performing Organization Address [facility] Co de Phone Number [facility] [place] [address] * Magnesium (05/13/2025 11:24 AM CDT) Magnesium 2.3 1.4 - 2.5 mg/dL Blood 05/13/2025 11:2 4 AM CDT 05/13/2025 11:50 AM CDT us Bar Gamble MD LAB BLOOD ORDERABLES Final R esult Performing Organization Address [facility] Co de Phone Number [facility] [place] [address] * Oxyhemoglobin, pulmonary artery (05/13/2025 11:17 AM CDT) Oxyhemoglobin, PA 57.5 % Comment: Interpretive Data No reference range established. Current interpretive data was last revised 2020. Blood 05/13/2025 11:1 7 AM CDT 05/13/2025 11:38 AM CDT Bar Gamble MD LAB BLOOD ORDERABLES Final R esult [facility] [place] [address] * (ABNORMAL) Hemoglobin total, pulmonary artery (05/13/2025 11:17 AM CDT) Hemoglobin total, PA 11.1(L) 13.0 - 17.5 g/dL Blood 05/13/2025 11:1 7 AM CDT 05/13/2025 11:38 AM CDT us Bar Gamble MD LAB BLOOD ORDERABLES Final R esult Performing Organization Address [facility] Co de Phone Number [facility] [place] [address] * Lactate, whole blood (05/13/2025 11:17 AM CDT) Pathologist [facility] Lactate, bld 0.7 0.7 - 2.0 mmol/L Blood 05/13/2025 11:1 7 AM CDT 05/13/2025 11:38 AM CDT us Bar Gamble MD LAB BLOOD ORDERABLES Final R esult Performing Organization Address [facility] Co de Phone Number [facility] [place] [address] * XR Chest 1 View (05/13/2025 6:26 AM CDT) Anatomical Region Laterality Modality Body, Chest N/A Computed Radiogr aphy 05/13/2025 10:5 5 AM CDT Impressions 05/13/2025 12:43 PM CDT Comparison with 05/12/2025. Right internal jugular [place]ne catheter tip overlies the right infrahilar region likely beyond the lobar pulmonary artery level. A right PICC catheter is in place with tip overlying superior vena cava. Unchanged small bilateral pleural effusions with associated atelectasis. No pneumothorax. Stable cardiomediastinal silhouette. Dictated by: Magali Cotton MD The radiology attending physician has personally reviewed this study, and had reviewed and/or edited this written report and agrees with it. Electronically signed by: Zev Jaimes M.D. Narrative 05/13/2025 12:43 PM CDT EXAMINATION: 1 view chest radiograph Procedure Note Zev Jaimes MD - 05/13/2025 EXAMINATION: 1 view chest radiograph IMPRESSION: Comparison with 05/12/2025. Right internal jugular [place] catheter tip overlies the right infrahilar region likely beyond the lobar pulmonary artery level. A right PICC catheter is in place with tip overlying superior vena cava. Unchanged small bilateral pleural effusions with associated atelectasis. No pneumothorax. Stable cardiomediastinal silhouette. Dictated by: Magali Cotton MD The radiology attending physician has personally reviewed this study, and had reviewed and/or edited this written report and agrees with it. Electronically signed by: Zev Jaimes M.D. us Bar Gamble MD IMG XR PROCEDURES Final Resu lt * Oxyhemoglobin, pulmonary artery (05/13/2025 5:46 AM CDT) Oxyhemoglobin, PA 60.2 % Comment: Interpretive Data No reference range established. Current interpretive data was last revised 2020. Blood 05/13/2025 5:46 AM CDT 05/13/2025 5:53 AM CDT us Bar Gamble MD LAB BLOOD ORDERABLES Final R esult [facility] [place] [address] * (ABNORMAL) Hemoglobin total, pulmonary artery (05/13/2025 5:46 AM CDT) Hemoglobin total, PA 10.9(L) 13.0 - 17.5 g/dL Blood 05/13/2025 5:46 AM CDT 05/13/2025 5:53 AM CDT Bar Gamble MD LAB BLOOD ORDERABLES Final R esult [facility] [place] [address] * eGFR (05/13/2025 5:46 AM CDT) eGFR 61 >=60 mL/min/1. 73 m2 Comment: Interpretive Data Reference Interval Normal >/= 90 mL/min/1.73m2 Mildly decreased* 60 - 89 mL/min/1.73m2 Mildly to moderately decreased 45 - 59 mL/min/1.73m2 Moderately to severely decreased 30 - 44 mL/min/1.73m2 Severely decreased 15 - 29 mL/min/1.73m2 Kidney Failure < 15 mL/min/1.73m2 *Relative to young adult level Estimated glomerular filtration rate is determined by the 2020 CKD-EPI equation recommended by the National Kidney Foundation (A Unifying Approach to GFR Estimation: Recommendations of the NKF-ASK Task Force on Reassessing the Inclusion of Race in Diagnosing Kidney Disease, JASN 2020). The CKD-EPI equation should not be used for patients with unstable renal function and has not been validated in children and those over 70. Current interpretive data was last reviewed 2021. Blood 05/13/2025 5:46 AM CDT 05/13/2025 6:00 AM CDT us Bar Gamble MD LAB BLOOD ORDERABLES Final R esult [facility] [place] [address] * (ABNORMAL) Lactate, whole blood (05/13/2025 5:46 AM CDT) Lactate, bld 0.6(L) 0.7 - 2.0 mmol/L Blood 05/13/2025 5:46 AM CDT 05/13/2025 5:53 AM CDT us Zev Cowart MD PhD LAB BLOOD ORDERABLES Fi nal Result Performing Organization Address [facility] Co de Phone Number [facility] [place] [address] * (ABNORMAL) aPTT (05/13/2025 5:46 AM CDT) aPTT 65(H) 28 - 38 sec Comment: Interpretive Data Heparin therapeutic range: 66.0 - 100.0 seconds. Range based on correlation with therapeutic heparin activity range of 0.3 - 0.7 Units/mL. Current interpretive data was last revised on 2023. Blood 05/13/2025 5:46 AM CDT 05/13/2025 5:59 AM CDT Narrative [facility] - 05/13/2025 6:22 AM CDT STAT PTT timing: - Draw 6 hours after heparin infusion initiation - Draw 6 hours after every dose change until 2 consecutive PTTs are therapeutic - Once 2 consecutive PTTs are therapeutic, obtain with daily labs until infusion is discontinued - - Restart every 6 hour lab draws and follow instructions accordingly if PTT is outside of therapeutic range Do not draw lab from IV line that is actively infusing heparin. Use the opposite arm. If arm with actively infusing heparin must be used, pause the infusion for at least 2 minutes, and draw specimen below the IV site. For patients with a central venous catheter (CVC), lab must be drawn peripherally (not from CVC). us Libia Suarez SWEET POTATO DISINTEGRATOR LAB BLOOD ORDERABLES Final Re sult Performing Organization Address [facility]/ZIP Co de Phone Number [facility] [place] [address] * (ABNORMAL) CBC without differential (05/13/2025 5:46 AM CDT) WBC 9.41 3.80 - 9.90 K/cumm Hgb 10.6(L) 13.0 - 17.5 g/dL [facility] Hct 32.6(L) 38.9 - 50.3 % [facility] Plt 190 150 - 400 K/cumm [facility] MPV 12.2 9.1 - 12.[address] [facility] RBC 3.90(L) 4.30 - 5.80 M/cumm [facility] MCV 83.6 81.3 - 96.[address] [facility] MCH 27.2 27.1 - 33.[address] [facility] MCHC 32.5 32.3 - 35.7 g/dL [facility] RDW CV 15.6(H) 11.1 - 14.9 % [facility] RDW SD 47.3 35.7 - 48.[address] [facility] NRBC abs 0.00 0.00 - 0.01 K/cumm [facility] Blood 05/13/2025 5:46 AM CDT 05/13/2025 6:00 AM CDT us Bar Gamble MD LAB BLOOD ORDERABLES Final R esult [facility] [place] [address] * Phosphorus (05/13/2025 5:46 AM CDT) Phosphorus, pl 3.3 2.3 - 4.5 mg/dL Blood 05/13/2025 5:46 AM CDT 05/13/2025 6:00 AM CDT us Zev Cowart MD PhD LAB BLOOD ORDERABLES Fi nal Result [facility] [place] [address] * Magnesium (05/13/2025 5:46 AM CDT) Magnesium 2.1 1.4 - 2.5 mg/dL Blood 05/13/2025 5:46 AM CDT 05/13/2025 6:00 AM CDT Bar Gamble MD LAB BLOOD ORDERABLES Final R esult Performing Organization Address [facility] Co de Phone Number [facility] [place] [address] * (ABNORMAL) Hepatic function panel (05/13/2025 5:46 AM CDT) Bilirubin, total 0.7 0.1 - 1.2 mg/dL Bilirubin, direct 0.3 0.1 - 0.3 mg/dL [facility] Protein, pl 5.8(L) 6.5 - 8.5 g/dL [facility] Albumin 3.5 3.5 - 5.0 g/dL [facility] Alk phos 255(H) 40 - 130 Units/L [facility] ALT 18 7 - 55 Units/L [facility] AST 21 10 - 50 Units/L [facility] Blood 05/13/2025 5:46 AM CDT 05/13/2025 6:00 AM CDT Bar aGmble MD LAB BLOOD ORDERABLES Final R esult Performing Organization Address [facility] Co de Phone Number [facility] [place] [address] * (ABNORMAL) Basic metabolic panel (05/13/2025 5:46 AM CDT) Sodium 138 135 - 145 mmol/L Potassium, pl 3.5 3.3 - 4.9 mmol/L [facility] Chloride 103 97 - 110 mmol/L [facility] CO2 24 22 - 32 mmol/L [facility] Anion gap 11 2 - 15 mmol/L [facility] BUN 40(H) 6 - 25 mg/dL [facility] Creatinine 1.32(H) 0.80 - 1.30 mg/dL [facility] Glucose 103 70 - 199 mg/dL [facility] Comment: Interpretive Data Fasting glucose >/= 126 mg/dl is diagnostic for diabetes. Fasting is defined as no caloric intake for at least 8 hours. Fasting glucose between 100 mg/dl to 125 mg/dl is diagnostic of prediabetes. In a patient with classic symptoms of hyperglycemia or hyperglycemic crisis, a random glucose >/= 200 mg/dl is diagnostic for diabetes. In the absence of unequivocal hyperglycemia, results should be confirmed by repeat testing. The classification and Diagnosis of Diabetes Diabetes Care 2021; 46: S19-S40. Current interpretive data was last revised 2022. Calcium 8.5 8.5 - 10.3 mg/dL [facility] Blood 05/13/2025 5:46 AM CDT 05/13/2025 6:00 AM CDT Bar Gamble MD LAB BLOOD ORDERABLES Final R esult Performing Organization Address City/[facility] Co de Phone Number [facility] [place] [address] * Oxyhemoglobin, pulmonary artery (05/12/2025 4:25 PM CDT) Oxyhemoglobin, PA 59.8 % Comment: Interpretive Data No reference range established. Current interpretive data was last revised 2020. Blood 05/12/2025 4:25 PM CDT 05/12/2025 4:35 PM CDT us Bar Gamble MD LAB BLOOD ORDERABLES Final R esult [facility] [place] [address] * (ABNORMAL) Hemoglobin total, pulmonary artery (05/12/2025 4:25 PM CDT) Hemoglobin total, PA 11.5(L) 13.0 - 17.5 g/dL Blood 05/12/2025 4:25 PM CDT 05/12/2025 4:35 PM CDT us Bar Gamble MD LAB BLOOD ORDERABLES Final R esult [facility] [place] [address] * (ABNORMAL) eGFR (05/12/2025 4:25 PM CDT) eGFR 54(L) >=60 mL/min/1. 73 m2 Comment: Interpretive Data Reference Interval Normal >/= 90 mL/min/1.73m2 Mildly decreased* 60 - 89 mL/min/1.73m2 Mildly to moderately decreased 45 - 59 mL/min/1.73m2 Moderately to severely decreased 30 - 44 mL/min/1.73m2 Severely decreased 15 - 29 mL/min/1.73m2 Kidney Failure < 15 mL/min/1.73m2 *Relative to young adult level Estimated glomerular filtration rate is determined by the 2020 CKD-EPI equation recommended by the National Kidney Foundation (A Unifying Approach to GFR Estimation: Recommendations of the NKF-ASK Task Force on Reassessing the Inclusion of Race in Diagnosing Kidney Disease, JASN 2020). The CKD-EPI equation should not be used for patients with unstable renal function and has not been validated in children and those over 70. Current interpretive data was last reviewed 2021. Blood 05/12/2025 4:2 5 PM CDT 05/12/2025 4:42 PM CDT us Bar Gamble MD LAB BLOOD ORDERABLES Final R esult [facility] [place] [address] * Lactate, whole blood (05/12/2025 4:25 PM CDT) Lactate, bld 0.9 0.7 - 2.0 mmol/L Blood 05/12/2025 4:25 PM CDT 05/12/2025 4:35 PM CDT Bar Gamble MD LAB BLOOD ORDERABLES Final R esult Performing Organization Address City/[facility]/ZIP Co de Phone Number [facility] [place] [address] * Magnesium (05/12/2025 4:25 PM CDT) [facility] Magnesium 2.0 1.4 - 2.5 mg/dL Blood 05/12/2025 4:25 PM CDT 05/12/2025 4:42 PM CDT Bar Gamble MD LAB BLOOD ORDERABLES Final R esult Performing Organization Address [facility] de Phone Number [facility] [place] [address] * (ABNORMAL) Basic metabolic panel (05/12/2025 4:25 PM CDT) [facility] Sodium 137 135 - 145 mmol/L Potassium, pl 4.1 3.3 - 4.9 mmol/L [facility] Chloride 105 97 - 110 mmol/L [facility] CO2 22 22 - 32 mmol/L [facility] Anion gap 10 2 - 15 mmol/L [facility] BUN 41(H) 6 - 25 mg/dL [facility] Creatinine 1.46(H) 0.80 - 1.30 mg/dL [facility] Glucose 112 70 - 199 mg/dL [facility] Comment: Interpretive Data Fasting glucose >/= 126 mg/dl is diagnostic for diabetes. Fasting is defined as no caloric intake for at least 8 hours. Fasting glucose between 100 mg/dl to 125 mg/dl is diagnostic of prediabetes. In a patient with classic symptoms of hyperglycemia or hyperglycemic crisis, a random glucose >/= 200 mg/dl is diagnostic for diabetes. In the absence of unequivocal hyperglycemia, results should be confirmed by repeat testing. The classification and Diagnosis of Diabetes Diabetes Care 202; 46: S19-S40. Current interpretive data was last revised 2022. Calcium 8.4(L) 8.5 - 10.3 mg/dL [facility] Blood 05/12/2025 4:25 PM CDT 05/12/2025 4:42 PM CDT us Bar Gamble MD LAB BLOOD ORDERABLES Final R esult Performing Organization Address City/[facility] Co de Phone Number [facility] [place] [address] * Oxyhemoglobin, pulmonary artery (05/12/2025 10:26 AM CDT) Oxyhemoglobin, PA 51.5 % Comment: Interpretive Data No reference range established. Current interpretive data was last revised 2020. Blood 05/12/2025 10:2 6 AM CDT 05/12/2025 10:40 AM CDT us Bar Gamble MD LAB BLOOD ORDERABLES Final R esult Performing Organization Address [facility] [place] [address] * (ABNORMAL) Hemoglobin total, pulmonary artery (05/12/2025 10:26 AM CDT) Hemoglobin total, PA 11.0(L) 13.0 - 17.5 g/dL Blood 05/12/2025 10:2 6 AM CDT 05/12/2025 10:40 AM CDT us Bar Gamble MD LAB BLOOD ORDERABLES Final R esult Performing Organization Address City/[facility] [place] [address] * Lactate, whole blood (05/12/2025 10:26 AM CDT) Lactate, bld 1.1 0.7 - 2.0 mmol/L Blood 05/12/2025 10:2 6 AM CDT 05/12/2025 10:40 AM CDT us Bar Gamble MD LAB BLOOD ORDERABLES Final R esult Performing Organization Address City/[facility] Co de Phone Number [facility] [place] [address] * Antibody identification (05/12/2025 5:45 AM CDT) Antibody ID 1 Anti-CD38 Comment:Panreactive -CD38 on reagent RBCs reacting with anti-CD38 therapy. DTT treatment removes cell surface CD38 and allows detection of common clinically significant antibodies except those against Dilma antigens. TRANSFUSION 2015;55;[id number] Blood 05/12/2025 5:45 AM CDT 05/12/2025 5:46 AM CDT us Libia Suarez NP LAB BLOOD BANK TEST ORDERABLE S Final Result Performing Organization Address [facility] Co de Phone Number [facility] [place] [address] * XR Chest 1 View (05/12/2025 5:42 AM CDT) Anatomical Region Laterality Modality Body, Chest N/A Digital Radiogra phy 05/12/2025 9:13 AM CDT Impressions 05/12/2025 9:13 AM CDT Comparison is made to chest radiograph dated 05/11/2025. Right internal jugular venous approach pulmonary artery catheter tip overlies the inferior aspect of the right lung hilum, similar to prior study; retraction is recommended. Right upper extremity peripherally inserted central catheter tip overlies the superior vena cava. No significant interval change in mild pulmonary edema and small bilateral pleural effusions. Mild bibasilar atelectasis. No pneumothorax. Stable cardiomediastinal silhouette. Electronically signed by: Flora Hodges M.D. Narrative 05/12/2025 9:13 AM CDT EXAMINATION: 1 view chest radiograph Procedure Note Flora Hodges MD - 05/12/2025 EXAMINATION: 1 view chest radiograph IMPRESSION: Comparison is made to chest radiograph dated 05/11/2025. Right internal jugular venous approach pulmonary artery catheter tip overlies the inferior aspect of the right lung hilum, similar to prior study; retraction is recommended. Right upper extremity peripherally inserted central catheter tip overlies the superior vena cava. No significant interval change in mild pulmonary edema and small bilateral pleural effusions. Mild bibasilar atelectasis. No pneumothorax. Stable cardiomediastinal silhouette. Electronically signed by: Flora Hodges M.D. us Bar Gamble MD IMG XR PROCEDURES Final Resu lt * (ABNORMAL) Type and screen (05/12/2025 4:19 AM CDT) ABO Rh O Positive Poppy, indirect Positive(A) [facility] Blood 05/12/2025 4:19 AM CDT 05/12/2025 4:43 AM CDT Narrative [facility] - 05/12/2025 5:46 AM CDT Has the patient had Daratumumab or Isatuximab in the past 6 months?->Unknown Libia Suarez SWEET POTATO DISINTEGRATOR LAB BLOOD BANK TEST ORDERABLE S Final Result [facility] [place] [address] * (ABNORMAL) aPTT (05/12/2025 4:17 AM CDT) aPTT 61(H) 28 - 38 sec Comment: Interpretive Data Heparin therapeutic range: 66.0 - 100.0 seconds. Range based on correlation with therapeutic heparin activity range of 0.3 - 0.7 Units/mL. Current interpretive data was last revised on 2023. Blood 05/12/2025 4:17 AM CDT 05/12/2025 4:35 AM CDT Narrative [facility] - 05/12/2025 4:59 AM CDT STAT PTT timing: - Draw 6 hours after heparin infusion initiation - Draw 6 hours after every dose change until 2 consecutive PTTs are therapeutic - Once 2 consecutive PTTs are therapeutic, obtain with daily labs until infusion is discontinued - - Restart every 6 hour lab draws and follow instructions accordingly if PTT is outside of therapeutic range Do not draw lab from IV line that is actively infusing heparin. Use the opposite arm. If arm with actively infusing heparin must be used, pause the infusion for at least 2 minutes, and draw specimen below the IV site. For patients with a central venous catheter (CVC), lab must be drawn peripherally (not from CVC). us Libia Suarez SWEET POTATO DISINTEGRATOR LAB BLOOD ORDERABLES Final Re sult Performing Organization Address [facility] Co de Phone Number [facility] [place] [address] * Oxyhemoglobin, pulmonary artery (05/12/2025 4:16 AM CDT) Oxyhemoglobin, PA 58.5 % Comment: Interpretive Data No reference range established. Current interpretive data was last revised 2020. Blood 05/12/2025 4:16 AM CDT 05/12/2025 4:28 AM CDT us Bar Gamble MD LAB BLOOD ORDERABLES Final R esult Performing Organization Address City/[facility]/ZIP Co de Phone Number [facility] [place] [address] * (ABNORMAL) Hemoglobin total, pulmonary artery (05/12/2025 4:16 AM CDT) Hemoglobin total, PA 11.2(L) 13.0 - 17.5 g/dL Blood 05/12/2025 4:16 AM CDT 05/12/2025 4:28 AM CDT Bar Gamble MD LAB BLOOD ORDERABLES Final R esult Performing Organization Address City/[facility] Co de Phone Number [facility] [place] [address] * eGFR (05/12/2025 4:16 AM CDT) eGFR 61 >=60 mL/min/1. 73 m2 Comment: Interpretive Data Reference Interval Normal >/= 90 mL/min/1.73m2 Mildly decreased* 60 - 89 mL/min/1.73m2 Mildly to moderately decreased 45 - 59 mL/min/1.73m2 Moderately to severely decreased 30 - 44 mL/min/1.73m2 Severely decreased 15 - 29 mL/min/1.73m2 Kidney Failure < 15 mL/min/1.73m2 *Relative to young adult level Estimated glomerular filtration rate is determined by the 2020 CKD-EPI equation recommended by the National Kidney Foundation (A Unifying Approach to GFR Estimation: Recommendations of the NKF-ASK Task Force on Reassessing the Inclusion of Race in Diagnosing Kidney Disease, JASN 2020). The CKD-EPI equation should not be used for patients with unstable renal function and has not been validated in children and those over 70. Current interpretive data was last reviewed 2021. Blood 05/12/2025 4:16 AM CDT 05/12/2025 4:32 AM CDT us Bar Gamble MD LAB BLOOD ORDERABLES Final R esult Performing Organization Address City/[facility]/ZIP Co de Phone Number [facility] [place] [address] * (ABNORMAL) CBC without differential (05/12/2025 4:16 AM CDT) Pathologist [facility] WBC 8.49 3.80 - 9.90 K/cumm Hgb 10.5(L) 13.0 - 17.5 g/dL [facility] Hct 32.0(L) 38.9 - 50.3 % [facility] Plt 181 150 - 400 K/cumm [facility] MPV 12.2 9.1 - 12.[address] [facility] RBC 3.84(L) 4.30 - 5.80 M/cumm [facility] MCV 83.3 81.3 - 96.[address] [facility] MCH 27.3 27.1 - 33.[address] [facility] MCHC 32.8 32.3 - 35.7 g/dL [facility] RDW CV 15.6(H) 11.1 - 14.9 % [facility] RDW SD 47.5 35.7 - 48.[address] [facility] NRBC abs 0.00 0.00 - 0.01 K/cumm [facility] Blood 05/12/2025 4:16 AM CDT 05/12/2025 4:37 AM CDT Bar Gamble MD LAB BLOOD ORDERABLES Final R esult Performing Organization Address City/[facility] Co de Phone Number [facility] [place] [address] * Magnesium (05/12/2025 4:16 AM CDT) [facility] Magnesium 2.2 1.4 - 2.5 mg/dL Blood 05/12/2025 4:16 AM CDT 05/12/2025 4:32 AM CDT us Bar Gamble MD LAB BLOOD ORDERABLES Final R esult Performing Organization Address City/State/[facility] Co de Phone Number [facility] [place] [address] * (ABNORMAL) Hepatic function panel (05/12/2025 4:16 AM CDT) Bilirubin, total 0.6 0.1 - 1.2 mg/dL Bilirubin, direct 0.3 0.1 - 0.3 mg/dL [facility] Protein, pl 5.8(L) 6.5 - 8.5 g/dL [facility] Albumin 3.7 3.5 - 5.0 g/dL [facility] Alk phos 274(H) 40 - 130 Units/L [facility] ALT 21 7 - 55 Units/L [facility] AST 23 10 - 50 Units/L [facility] Blood 05/12/2025 4:16 AM CDT 05/12/2025 4:32 AM CDT Bar Gamble MD LAB BLOOD ORDERABLES Final R esult [facility] [place] [address] * (ABNORMAL) Basic metabolic panel (05/12/2025 4:16 AM CDT) Sodium 136 135 - 145 mmol/L Potassium, pl 4.4 3.3 - 4.9 mmol/L [facility] Chloride 101 97 - 110 mmol/L [facility] CO2 26 22 - 32 mmol/L [facility] Anion gap 9 2 - 15 mmol/L [facility] BUN 38(H) 6 - 25 mg/dL [facility] Creatinine 1.32(H) 0.80 - 1.30 mg/dL [facility] Glucose 107 70 - 199 mg/dL [facility] Comment: Interpretive Data Fasting glucose >/= 126 mg/dl is diagnostic for diabetes. Fasting is defined as no caloric intake for at least 8 hours. Fasting glucose between 100 mg/dl to 125 mg/dl is diagnostic of prediabetes. In a patient with classic symptoms of hyperglycemia or hyperglycemic crisis, a random glucose >/= 200 mg/dl is diagnostic for diabetes. In the absence of unequivocal hyperglycemia, results should be confirmed by repeat testing. The classification and Diagnosis of Diabetes Diabetes Care 202; 46: S19-S40. Current interpretive data was last revised 2022. Calcium 9.2 8.5 - 10.3 mg/dL [facility] Blood 05/12/2025 4:16 AM CDT 05/12/2025 4:32 AM CDT Bar Gamble MD LAB BLOOD ORDERABLES Final R esult Performing Organization Address [facility] Co de Phone Number [facility] [place] [address] * Oxyhemoglobin, pulmonary artery (05/11/2025 4:20 PM CDT) Oxyhemoglobin, PA 59.9 % Comment: Interpretive Data No reference range established. Current interpretive data was last revised 2020. Blood 05/11/2025 4:20 PM CDT 05/11/2025 4:29 PM CDT Bar Gamble MD LAB BLOOD ORDERABLES Final R esult Performing Organization Address [facility] Co de Phone Number [facility] [place] [address] * (ABNORMAL) Hemoglobin total, pulmonary artery (05/11/2025 4:20 PM CDT) Hemoglobin total, PA 10.7(L) 13.0 - 17.5 g/dL Blood 05/11/2025 4:20 PM CDT 05/11/2025 4:29 PM CDT Bar Gamble MD LAB BLOOD ORDERABLES Final R esult Performing Organization Address City/[facility] Co de Phone Number [facility] [place] [address] * Potassium, whole blood (05/11/2025 4:20 PM CDT) Potassium, bld 3.9 3.3 - 4.9 mmol/L Blood 05/11/2025 4:20 PM CDT 05/11/2025 4:29 PM CDT us Bar Gamble MD LAB BLOOD ORDERABLES Final R esult Performing Organization Address City/[facility] Co de Phone Number [facility] [place] [address] * eGFR (05/11/2025 4:20 PM CDT) eGFR 60 >=60 mL/min/1. 73 m2 Comment: Interpretive Data Reference Interval Normal >/= 90 mL/min/1.73m2 Mildly decreased* 60 - 89 mL/min/1.73m2 Mildly to moderately decreased 45 - 59 mL/min/1.73m2 Moderately to severely decreased 30 - 44 mL/min/1.73m2 Severely decreased 15 - 29 mL/min/1.73m2 Kidney Failure < 15 mL/min/1.73m2 *Relative to young adult level Estimated glomerular filtration rate is determined by the 2020 CKD-EPI equation recommended by the National Kidney Foundation (A Unifying Approach to GFR Estimation: Recommendations of the NKF-ASK Task Force on Reassessing the Inclusion of Race in Diagnosing Kidney Disease, JASN 2020). The CKD-EPI equation should not be used for patients with unstable renal function and has not been validated in children and those over 70. Current interpretive data was last reviewed 2021. Blood 05/11/2025 4:20 PM CDT 05/11/2025 4:35 PM CDT us Bar Gamble MD LAB BLOOD ORDERABLES Final R esult Performing Organization Address City/[facility]/ZIP Co de Phone Number [facility] [place] [address] * (ABNORMAL) Lactate, whole blood (05/11/2025 4:20 PM CDT) Lactate, bld 0.6(L) 0.7 - 2.0 mmol/L Blood 05/11/2025 4:20 PM CDT 05/11/2025 4:29 PM CDT us Bar Gamble MD LAB BLOOD ORDERABLES Final R esult [facility] [place] [address] * Magnesium (05/11/2025 4:20 PM CDT) [facility] Magnesium 2.1 1.4 - 2.5 mg/dL Blood 05/11/2025 4:20 PM CDT 05/11/2025 4:35 PM CDT Bar Gamble MD LAB BLOOD ORDERABLES Final R [facility] Performing Organization Address City/[facility] Co de Phone Number [facility] [place] [address] * (ABNORMAL) Basic metabolic panel (05/11/2025 4:20 PM CDT) [facility] Sodium 136 135 - 145 mmol/L Potassium, pl 4.3 3.3 - 4.9 mmol/L [facility] Chloride 103 97 - 110 mmol/L [facility] CO2 23 22 - 32 mmol/L [facility] Anion gap 10 2 - 15 mmol/L [facility] BUN 38(H) 6 - 25 mg/dL [facility] Creatinine 1.34(H) 0.80 - 1.30 mg/dL [facility] Glucose 113 70 - 199 mg/dL [facility] Comment: Interpretive Data Fasting glucose >/= 126 mg/dl is diagnostic for diabetes. Fasting is defined as no caloric intake for at least 8 hours. Fasting glucose between 100 mg/dl to 125 mg/dl is diagnostic of prediabetes. In a patient with classic symptoms of hyperglycemia or hyperglycemic crisis, a random glucose >/= 200 mg/dl is diagnostic for diabetes. In the absence of unequivocal hyperglycemia, results should be confirmed by repeat testing. The classification and Diagnosis of Diabetes Diabetes Care 202; 46: S19-S40. Current interpretive data was last revised 2022. Calcium 8.7 8.5 - 10.3 mg/dL [facility] Blood 05/11/2025 4:20 PM CDT 05/11/2025 4:35 PM CDT Bar Gamble MD LAB BLOOD ORDERABLES Final R esult Performing Organization Address [facility] Co de Phone Number [facility] [place] [address] * Oxyhemoglobin, pulmonary artery (05/11/2025 10:12 AM CDT) Oxyhemoglobin, PA 51.5 % Comment: Interpretive Data No reference range established. Current interpretive data was last revised 2020. Blood 05/11/2025 10:1 2 AM CDT 05/11/2025 10:24 AM CDT Bar Gamble MD LAB BLOOD ORDERABLES Final R esult Performing Organization Address [facility] Co de Phone Number [facility] [place] [address] * (ABNORMAL) Hemoglobin total, pulmonary artery (05/11/2025 10:12 AM CDT) Hemoglobin total, PA 10.5(L) 13.0 - 17.5 g/dL Blood 05/11/2025 10:1 2 AM CDT 05/11/2025 10:24 AM CDT Bar Gamble MD LAB BLOOD ORDERABLES Final R esult Performing Organization Address City/[facility] Co de Phone Number [facility] [place] [address] * Lactate, whole blood (05/11/2025 10:12 AM CDT) Lactate, bld 0.8 0.7 - 2.0 mmol/L Blood 05/11/2025 10:1 2 AM CDT 05/11/2025 10:24 AM CDT Bar Gamble MD LAB BLOOD ORDERABLES Final R esult Performing Organization Address [facility]/ZIP Co de Phone Number [facility] [place] [address] * (ABNORMAL) aPTT (05/11/2025 10:12 AM CDT) aPTT 62(H) 28 - 38 sec Comment: Interpretive Data Heparin therapeutic range: 66.0 - 100.0 seconds. Range based on correlation with therapeutic heparin activity range of 0.3 - 0.7 Units/mL. Current interpretive data was last revised on 2023. Blood 05/11/2025 10:1 2 AM CDT 05/11/2025 10:30 AM CDT Narrative [facility] - 05/11/2025 10:59 AM CDT STAT PTT timing: - Draw 6 hours after heparin infusion initiation - Draw 6 hours after every dose change until 2 consecutive PTTs are therapeutic - Once 2 consecutive PTTs are therapeutic, obtain with daily labs until infusion is discontinued - - Restart every 6 hour lab draws and follow instructions accordingly if PTT is outside of therapeutic range Do not draw lab from IV line that is actively infusing heparin. Use the opposite arm. If arm with actively infusing heparin must be used, pause the infusion for at least 2 minutes, and draw specimen below the IV site. For patients with a central venous catheter (CVC), lab must be drawn peripherally (not from CVC). us Libia Suarez NP LAB BLOOD ORDERABLES Final Re sult Performing Organization Address City/[facility]/ZIP Co de Phone Number DULCE MARIA [facility] [place] [address] * (ABNORMAL) aPTT (05/11/2025 8:20 AM CDT) aPTT 60(H) 28 - 38 sec Comment: Interpretive Data Heparin therapeutic range: 66.0 - 100.0 seconds. Range based on correlation with therapeutic heparin activity range of 0.3 - 0.7 Units/mL. Current interpretive data was last revised on 2023. Blood 05/11/2025 8:20 AM CDT 05/11/2025 8:40 AM CDT [facility] - 05/11/2025 9:02 AM CDT STAT PTT timing: - Draw 6 hours after heparin infusion initiation - Draw 6 hours after every dose change until 2 consecutive PTTs are therapeutic - Once 2 consecutive PTTs are therapeutic, obtain with daily labs until infusion is discontinued - - Restart every 6 hour lab draws and follow instructions accordingly if PTT is outside of therapeutic range Do not draw lab from IV line that is actively infusing heparin. Use the opposite arm. If arm with actively infusing heparin must be used, pause the infusion for at least 2 minutes, and draw specimen below the IV site. For patients with a central venous catheter (CVC), lab must be drawn peripherally (not from CVC). Libia Suarez [employer]INTEGRATOR LAB BLOOD ORDERABLES Final Re sult DULCE MARIA [facility] [place] [address] * XR Chest 1 View (05/11/2025 5:34 AM CDT) Anatomical Region Laterality Modality Body, Chest N/A Computed Radiogr aphy 05/11/2025 7:28 AM CDT Impressions 05/11/2025 10:39 AM CDT The current study is compared with the prior radiograph dated 05/10/2025 [place] catheter tip overlies a right lower lobe segmental pulmonary artery, unchanged in position compared to prior examination. Right peripherally inserted central venous catheter tip overlies the superior cavoatrial junction. Mild bibasilar atelectasis. Trace bilateral pleural effusions. No pneumothorax. The mediastinal contours and cardiac silhouette are stable. Dictated by: Krystina Castorena MD The radiology attending physician has personally reviewed this study, and had reviewed and/or edited this written report and agrees with it. Electronically signed by: Miguel [place] Ng M.D. Narrative 05/11/2025 10:39 AM CDT EXAMINATION: 1 view chest radiograph Procedure Note Miguel [place] Ng MD - 05/11/2025 EXAMINATION: 1 view chest radiograph IMPRESSION: The current study is compared with the prior radiograph dated 05/10/2025 [place] catheter tip overlies a right lower lobe segmental pulmonary artery, unchanged in position compared to prior examination. Right peripherally inserted central venous catheter tip overlies the superior cavoatrial junction. Mild bibasilar atelectasis. Trace bilateral pleural effusions. No pneumothorax. The mediastinal contours and cardiac silhouette are stable. Dictated by: Krystina Castorena MD The radiology attending physician has personally reviewed this study, and had reviewed and/or edited this written report and agrees with it. Electronically signed by: Miguel [place] Ng M.D. Bar Gamble MD IMG XR PROCEDURES Final Resu lt * eGFR (05/11/2025 5:00 AM CDT) eGFR 62 >=60 mL/min/1. 73 m2 Comment: Interpretive Data Reference Interval Normal >/= 90 mL/min/1.73m2 Mildly decreased* 60 - 89 mL/min/1.73m2 Mildly to moderately decreased 45 - 59 mL/min/1.73m2 Moderately to severely decreased 30 - 44 mL/min/1.73m2 Severely decreased 15 - 29 mL/min/1.73m2 Kidney Failure < 15 mL/min/1.73m2 *Relative to young adult level Estimated glomerular filtration rate is determined by the 2020 CKD-EPI equation recommended by the National Kidney Foundation (A Unifying Approach to GFR Estimation: Recommendations of the NKF-ASK Task Force on Reassessing the Inclusion of Race in Diagnosing Kidney Disease, JASN 2020). The CKD-EPI equation should not be used for patients with unstable renal function and has not been validated in children and those over 70. Current interpretive data was last reviewed 2021. Blood 05/11/2025 5:00 AM CDT 05/11/2025 5:09 AM CDT us Bar Gamble MD LAB BLOOD ORDERABLES Final R esult Performing Organization Address City/[facility]/ZIP Co de Phone Number [facility] [place] [address] * (ABNORMAL) CBC without differential (05/11/2025 5:00 AM CDT) WBC 9.06 3.80 - 9.90 K/cumm Hgb 10.4(L) 13.0 - 17.5 g/dL [facility] Hct 31.9(L) 38.9 - 50.3 % [facility] Plt 177 150 - 400 K/cumm [facility] MPV 12.0 9.1 - 12.[address] [facility] RBC 3.87(L) 4.30 - 5.80 M/cumm [facility] MCV 82.4 81.3 - 96.[address] [facility] MCH 26.9(L) 27.1 - 33.[address] [facility] MCHC 32.6 32.3 - 35.7 g/dL [facility] RDW CV 15.6(H) 11.1 - 14.9 % [facility] RDW SD 47.5 35.7 - 48.[address] [facility] NRBC abs 0.00 0.00 - 0.01 K/cumm [facility] Blood 05/11/2025 5:00 AM CDT 05/11/2025 5:10 AM CDT us Bar Gamble MD LAB BLOOD ORDERABLES Final R esult [facility] [place] [address] * Phosphorus (05/11/2025 5:00 AM CDT) Phosphorus, pl 3.4 2.3 - 4.5 mg/dL Blood 05/11/2025 5:00 AM CDT 05/11/2025 5:09 AM CDT us Zev Cowart MD PhD LAB BLOOD ORDERABLES Fi nal Result Performing Organization Address City/[facility]/ZIP Co de Phone Number [facility] [place] [address] * Magnesium (05/11/2025 5:00 AM CDT) Pathologist [facility] Magnesium 2.1 1.4 - 2.5 mg/dL Blood 05/11/2025 5:00 AM CDT 05/11/2025 5:09 AM CDT us Bar Gamble MD LAB BLOOD ORDERABLES Final R esult Performing Organization Address [facility] de Phone Number [facility] [place] [address] * (ABNORMAL) Hepatic function panel (05/11/2025 5:00 AM CDT) Pathologist [facility] Bilirubin, total 0.6 0.1 - 1.2 mg/dL Bilirubin, direct 0.3 0.1 - 0.3 mg/dL [facility] Protein, pl 5.5(L) 6.5 - 8.5 g/dL [facility] Albumin 3.5 3.5 - 5.0 g/dL [facility] Alk phos 254(H) 40 - 130 Units/L [facility] ALT 20 7 - 55 Units/L [facility] AST 22 10 - 50 Units/L [facility] Blood 05/11/2025 5:00 AM CDT 05/11/2025 5:09 AM CDT Bar Gamble MD LAB BLOOD ORDERABLES Final R esult Performing Organization Address [facility] Co de Phone Number [facility] [place] [address] * (ABNORMAL) Basic metabolic panel (05/11/2025 5:00 AM CDT) Sodium 135 135 - 145 mmol/L Potassium, pl 3.4 3.3 - 4.9 mmol/L [facility] Chloride 101 97 - 110 mmol/L [facility] CO2 26 22 - 32 mmol/L [facility] Anion gap 8 2 - 15 mmol/L [facility] BUN 37(H) 6 - 25 mg/dL [facility] Creatinine 1.30 0.80 - 1.30 mg/dL [facility] Glucose 104 70 - 199 mg/dL [facility] Comment: Interpretive Data Fasting glucose >/= 126 mg/dl is diagnostic for diabetes. Fasting is defined as no caloric intake for at least 8 hours. Fasting glucose between 100 mg/dl to 125 mg/dl is diagnostic of prediabetes. In a patient with classic symptoms of hyperglycemia or hyperglycemic crisis, a random glucose >/= 200 mg/dl is diagnostic for diabetes. In the absence of unequivocal hyperglycemia, results should be confirmed by repeat testing. The classification and Diagnosis of Diabetes Diabetes Care 2021; 46: S19-S40. Current interpretive data was last revised 2022. Calcium 8.6 8.5 - 10.3 mg/dL [facility] Blood 05/11/2025 5:00 AM CDT 05/11/2025 5:09 AM CDT Bar Gamble MD LAB BLOOD ORDERABLES Final R esult [facility] [place] [address] * Oxyhemoglobin, pulmonary artery (05/11/2025 4:47 AM CDT) Oxyhemoglobin, PA 59.8 % Comment: Interpretive Data No reference range established. Current interpretive data was last revised 2020. Blood 05/11/2025 4:47 AM CDT 05/11/2025 5:06 AM CDT us Bar Gamble MD LAB BLOOD ORDERABLES Final R esult Performing Organization Address [facility] Co de Phone Number [facility] [place] [address] * (ABNORMAL) Hemoglobin total, pulmonary artery (05/11/2025 4:47 AM CDT) Hemoglobin total, PA 10.7(L) 13.0 - 17.5 g/dL Blood 05/11/2025 4:47 AM CDT 05/11/2025 5:06 AM CDT Bar Gamble MD LAB BLOOD ORDERABLES Final R esult Performing Organization Address [facility] Co de Phone Number [facility] [place] [address] * (ABNORMAL) Lactate, whole blood (05/11/2025 4:47 AM CDT) Lactate, bld 0.6(L) 0.7 - 2.0 mmol/L Blood 05/11/2025 4:47 AM CDT 05/11/2025 5:06 AM CDT Bar Gamble MD LAB BLOOD ORDERABLES Final R esult Performing Organization Address [facility] Co de Phone Number [facility] [place] [address] * (ABNORMAL) aPTT (05/11/2025 3:46 AM CDT) aPTT 44(H) 28 - 38 sec Comment: Interpretive Data Heparin therapeutic range: 66.0 - 100.0 seconds. Range based on correlation with therapeutic heparin activity range of 0.3 - 0.7 Units/mL. Current interpretive data was last revised on 2023. Blood 05/11/2025 3:46 AM CDT 05/11/2025 5:33 AM CDT Narrative [facility] - 05/11/2025 5:42 AM CDT STAT PTT timing: - Draw 6 hours after heparin infusion initiation - Draw 6 hours after every dose change until 2 consecutive PTTs are therapeutic - Once 2 consecutive PTTs are therapeutic, obtain with daily labs until infusion is discontinued - - Restart every 6 hour lab draws and follow instructions accordingly if PTT is outside of therapeutic range Do not draw lab from IV line that is actively infusing heparin. Use the opposite arm. If arm with actively infusing heparin must be used, pause the infusion for at least 2 minutes, and draw specimen below the IV site. For patients with a central venous catheter (CVC), lab must be drawn peripherally (not from CVC). us Libia Suarez NP LAB BLOOD ORDERABLES Final Re sult Performing Organization Address [facility] Co de Phone Number [facility] [place] [address] * Oxyhemoglobin, pulmonary artery (05/10/2025 5:40 PM CDT) Oxyhemoglobin, PA 51.6 % Comment: Interpretive Data No reference range established. Current interpretive data was last revised 2020. Blood 05/10/2025 5:40 PM CDT 05/10/2025 5:50 PM CDT us Bar Gamble MD LAB BLOOD ORDERABLES Final R esult Performing Organization Address [facility] Co de Phone Number [facility] [place] [address] * (ABNORMAL) Hemoglobin total, pulmonary artery (05/10/2025 5:40 PM CDT) Hemoglobin total, PA 11.7(L) 13.0 - 17.5 g/dL Blood 05/10/2025 5:40 PM CDT 05/10/2025 5:50 PM CDT us Bar Gamble MD LAB BLOOD ORDERABLES Final R esult Performing Organization Address City/[facility]/ZIP Co de Phone Number [facility] [place] [address] * (ABNORMAL) eGFR (05/10/2025 5:40 PM CDT) eGFR 57(L) >=60 mL/min/1. 73 m2 Comment: Interpretive Data Reference Interval Normal >/= 90 mL/min/1.73m2 Mildly decreased* 60 - 89 mL/min/1.73m2 Mildly to moderately decreased 45 - 59 mL/min/1.73m2 Moderately to severely decreased 30 - 44 mL/min/1.73m2 Severely decreased 15 - 29 mL/min/1.73m2 Kidney Failure < 15 mL/min/1.73m2 *Relative to young adult level Estimated glomerular filtration rate is determined by the 2020 CKD-EPI equation recommended by the National Kidney Foundation (A Unifying Approach to GFR Estimation: Recommendations of the NKF-ASK Task Force on Reassessing the Inclusion of Race in Diagnosing Kidney Disease, JASN 2020). The CKD-EPI equation should not be used for patients with unstable renal function and has not been validated in children and those over 70. Current interpretive data was last reviewed 2021. Blood 05/10/2025 5:40 PM CDT 05/10/2025 5:57 PM CDT us Bar Gamble MD LAB BLOOD ORDERABLES Final R esult DULCE MARIA [facility] [place] [address] * (ABNORMAL) Lactate, whole blood (05/10/2025 5:40 PM CDT) Lactate, bld 0.6(L) 0.7 - 2.0 mmol/L Blood 05/10/2025 5:40 PM CDT 05/10/2025 5:50 PM CDT Bar Gamble MD LAB BLOOD ORDERABLES Final R esult Performing Organization Address City/[facility]/ZIP Co de Phone Number [facility] [place] [address] * Magnesium (05/10/2025 5:40 PM CDT) Pathologist [facility] Magnesium 2.2 1.4 - 2.5 mg/dL Blood 05/10/2025 5:40 PM CDT 05/10/2025 5:57 PM CDT Bar Gamble MD LAB BLOOD ORDERABLES Final R esult Performing Organization Address [facility] Co de Phone Number [facility] [place] [address] * (ABNORMAL) Basic metabolic panel (05/10/2025 5:40 PM CDT) [facility] Sodium 135 135 - 145 mmol/L Potassium, pl 3.9 3.3 - 4.9 mmol/L [facility] Chloride 98 97 - 110 mmol/L [facility] CO2 26 22 - 32 mmol/L [facility] Anion gap 11 2 - 15 mmol/L [facility] BUN 41(H) 6 - 25 mg/dL [facility] Creatinine 1.41(H) 0.80 - 1.30 mg/dL [facility] Glucose 141 70 - 199 mg/dL [facility] Comment: Interpretive Data Fasting glucose >/= 126 mg/dl is diagnostic for diabetes. Fasting is defined as no caloric intake for at least 8 hours. Fasting glucose between 100 mg/dl to 125 mg/dl is diagnostic of prediabetes. In a patient with classic symptoms of hyperglycemia or hyperglycemic crisis, a random glucose >/= 200 mg/dl is diagnostic for diabetes. In the absence of unequivocal hyperglycemia, results should be confirmed by repeat testing. The classification and Diagnosis of Diabetes Diabetes Care 2021; 46: S19-S40. Current interpretive data was last revised 2022. Calcium 9.2 8.5 - 10.3 mg/dL [facility] Blood 05/10/2025 5:40 PM CDT 05/10/2025 5:57 PM CDT Bar Gamble MD LAB BLOOD ORDERABLES Final R esult Performing Organization Address [facility] Co de Phone Number [facility] [place] [address] * Oxyhemoglobin, pulmonary artery (05/10/2025 12:30 PM CDT) Oxyhemoglobin, PA 58.9 % Comment: Interpretive Data No reference range established. Current interpretive data was last revised 2020. Blood 05/10/2025 12:3 0 PM CDT 05/10/2025 12:39 PM CDT us Bar Gamble MD LAB BLOOD ORDERABLES Final R esult Performing Organization Address [facility] Co de Phone Number [facility] [place] [address] * (ABNORMAL) Hemoglobin total, pulmonary artery (05/10/2025 12:30 PM CDT) Hemoglobin total, PA 11.8(L) 13.0 - 17.5 g/dL Blood 05/10/2025 12:3 0 PM CDT 05/10/2025 12:39 PM CDT Bar Gamble MD LAB BLOOD ORDERABLES Final R esult Performing Organization Address [facility] [place] [address] * Lactate, whole blood (05/10/2025 12:30 PM CDT) Lactate, bld 1.0 0.7 - 2.0 mmol/L Blood 05/10/2025 12:3 0 PM CDT 05/10/2025 12:39 PM CDT Bar Gamble MD LAB BLOOD ORDERABLES Final R esult [facility] [place] [address] * XR Chest 1 View (05/10/2025 7:02 AM CDT) Anatomical Region Laterality Modality Body, Chest N/A Digital Radiogra phy 05/10/2025 10:1 1 AM CDT Impressions 05/10/2025 10:24 AM CDT The current study is compared with the prior radiograph dated 05/09/2025. [place]Jayne catheter has been advanced and the tip overlies the branch of right lower lobe pulmonary artery, recommend retraction. Trace bilateral pleural effusions. Mild bibasilar atelectasis. No pneumothorax. The heart and mediastinal contours are stable. The Critical results were discussed with Dave KING by Dr. Neel Nelson MD on 05/10/2025 at 10:10 AM Dictated by: Neel Nelson MD The radiology attending physician has personally reviewed this study, and had reviewed and/or edited this written report and agrees with it. Electronically signed by: Miguel [place] Ng M.D. Narrative 05/10/2025 10:24 AM CDT EXAMINATION: 1 view chest radiograph Procedure Note Miguel [place] Ng MD - 05/10/2025 EXAMINATION: 1 view chest radiograph IMPRESSION: The current study is compared with the prior radiograph dated 05/09/2025. [place]ne catheter has been advanced and the tip overlies the branch of right lower lobe pulmonary artery, recommend retraction. Trace bilateral pleural effusions. Mild bibasilar atelectasis. No pneumothorax. The heart and mediastinal contours are stable. The Critical results were discussed with Dave KING by Dr. Neel Nelson MD on 05/10/2025 at 10:10 AM Dictated by: Neel Nelson MD The radiology attending physician has personally reviewed this study, and had reviewed and/or edited this written report and agrees with it. Electronically signed by: Miguel [place] Ng M.D. Bar Gamble MD IMG XR PROCEDURES Final Resu lt * Oxyhemoglobin, pulmonary artery (05/10/2025 4:34 AM CDT) Pathologist [facility] Oxyhemoglobin, PA 64.8 % Comment: Interpretive Data No reference range established. Current interpretive data was last revised 2020. Blood 05/10/2025 4:34 AM CDT 05/10/2025 4:42 AM CDT Bar Gamble MD LAB BLOOD ORDERABLES Final R esult Performing Organization Address City/[facility]/ZIP Co de Phone Number [facility] [place] [address] * (ABNORMAL) Hemoglobin total, pulmonary artery (05/10/2025 4:34 AM CDT) [facility] Hemoglobin total, PA 10.6(L) 13.0 - 17.5 g/dL Blood 05/10/2025 4:34 AM CDT 05/10/2025 4:42 AM CDT Bar Gamble MD LAB BLOOD ORDERABLES Final R esult [facility] [place] [address] * eGFR (05/10/2025 4:34 AM CDT) [facility] eGFR 62 >=60 mL/min/1. 73 m2 Comment: Interpretive Data Reference Interval Normal >/= 90 mL/min/1.73m2 Mildly decreased* 60 - 89 mL/min/1.73m2 Mildly to moderately decreased 45 - 59 mL/min/1.73m2 Moderately to severely decreased 30 - 44 mL/min/1.73m2 Severely decreased 15 - 29 mL/min/1.73m2 Kidney Failure < 15 mL/min/1.73m2 *Relative to young adult level Estimated glomerular filtration rate is determined by the 2020 CKD-EPI equation recommended by the National Kidney Foundation (A Unifying Approach to GFR Estimation: Recommendations of the NKF-ASK Task Force on Reassessing the Inclusion of Race in Diagnosing Kidney Disease, JASN 2020). The CKD-EPI equation should not be used for patients with unstable renal function and has not been validated in children and those over 70. Current interpretive data was last reviewed 2021. Blood 05/10/2025 4:34 AM CDT 05/10/2025 4:44 AM CDT us Bar Gamble MD LAB BLOOD ORDERABLES Final R esult Performing Organization Address City/[facility]/ZIP Co de Phone Number DULCE MARIA [facility] [place] [address] * (ABNORMAL) Lactate, whole blood (05/10/2025 4:34 AM CDT) Lactate, bld 0.5(L) 0.7 - 2.0 mmol/L Comment:Repeated and veriflluu d. Blood 05/10/2025 4:34 AM CDT 05/10/2025 4:42 AM CDT us Bar Gamble MD LAB BLOOD ORDERABLES Final R esult [facility] [place] [address] * (ABNORMAL) aPTT (05/10/2025 4:34 AM CDT) aPTT 61(H) 28 - 38 sec Comment: Interpretive Data Heparin therapeutic range: 66.0 - 100.0 seconds. Range based on correlation with therapeutic heparin activity range of 0.3 - 0.7 Units/mL. Current interpretive data was last revised on 2023. Blood 05/10/2025 4:34 AM CDT 05/10/2025 4:54 AM CDT Narrative [facility] - 05/10/2025 5:04 AM CDT STAT PTT timing: - Draw 6 hours after heparin infusion initiation - Draw 6 hours after every dose change until 2 consecutive PTTs are therapeutic - Once 2 consecutive PTTs are therapeutic, obtain with daily labs until infusion is discontinued - - Restart every 6 hour lab draws and follow instructions accordingly if PTT is outside of therapeutic range Do not draw lab from IV line that is actively infusing heparin. Use the opposite arm. If arm with actively infusing heparin must be used, pause the infusion for at least 2 minutes, and draw specimen below the IV site. For patients with a central venous catheter (CVC), lab must be drawn peripherally (not from CVC). Libia Suarez SWEET POTATO DISINTEGRATOR LAB BLOOD ORDERABLES Final Re sult [facility] [place] [address] * (ABNORMAL) CBC without differential (05/10/2025 4:34 AM CDT) WBC 8.33 3.80 - 9.90 K/cumm Hgb 10.9(L) 13.0 - 17.5 g/dL [facility] Hct 33.0(L) 38.9 - 50.3 % [facility] Plt 176 150 - 400 K/cumm [facility] MPV 12.0 9.1 - 12.[address] [facility] RBC 3.96(L) 4.30 - 5.80 M/cumm [facility] MCV 83.3 81.3 - 96.[address] [facility] MCH 27.5 27.1 - 33.[address] [facility] MCHC 33.0 32.3 - 35.7 g/dL [facility] RDW CV 15.4(H) 11.1 - 14.9 % [facility] RDW SD 47.1 35.7 - 48.[address] [facility] NRBC abs 0.00 0.00 - 0.01 K/cumm [facility] Blood 05/10/2025 4:34 AM CDT 05/10/2025 4:45 AM CDT Bar Gamble MD LAB BLOOD ORDERABLES Final R esult Performing Organization Address [facility] Co de Phone Number [facility] [place] [address] * Magnesium (05/10/2025 4:34 AM CDT) Pathologist [facility] Magnesium 2.3 1.4 - 2.5 mg/dL Blood 05/10/2025 4:34 AM CDT 05/10/2025 4:44 AM CDT Bar Gamble MD LAB BLOOD ORDERABLES Final R esult Performing Organization Address [facility] de Phone Number [facility] [place] [address] * (ABNORMAL) Hepatic function panel (05/10/2025 4:34 AM CDT) Pathologist [facility] Bilirubin, total 0.6 0.1 - 1.2 mg/dL Bilirubin, direct 0.3 0.1 - 0.3 mg/dL [facility] Protein, pl 6.0(L) 6.5 - 8.5 g/dL [facility] Albumin 3.7 3.5 - 5.0 g/dL [facility] Alk phos 263(H) 40 - 130 Units/L [facility] ALT 21 7 - 55 Units/L [facility] AST 23 10 - 50 Units/L [facility] Blood 05/10/2025 4:34 AM CDT 05/10/2025 4:44 AM CDT Bar Gamble MD LAB BLOOD ORDERABLES Final R esult Performing Organization Address [facility]/State/ZIP Co de Phone Number [facility] [place] [address] * (ABNORMAL) Basic metabolic panel (05/10/2025 4:34 AM CDT) Sodium 136 135 - 145 mmol/L Potassium, pl 4.0 3.3 - 4.9 mmol/L [facility] Chloride 99 97 - 110 mmol/L [facility] CO2 27 22 - 32 mmol/L [facility] Anion gap 10 2 - 15 mmol/L [facility] BUN 37(H) 6 - 25 mg/dL [facility] Creatinine 1.31(H) 0.80 - 1.30 mg/dL [facility] Glucose 111 70 - 199 mg/dL [facility] Comment: Interpretive Data Fasting glucose >/= 126 mg/dl is diagnostic for diabetes. Fasting is defined as no caloric intake for at least 8 hours. Fasting glucose between 100 mg/dl to 125 mg/dl is diagnostic of prediabetes. In a patient with classic symptoms of hyperglycemia or hyperglycemic crisis, a random glucose >/= 200 mg/dl is diagnostic for diabetes. In the absence of unequivocal hyperglycemia, results should be confirmed by repeat testing. The classification and Diagnosis of Diabetes Diabetes Care 2021; 46: S19-S40. Current interpretive data was last revised 2022. Calcium 9.6 8.5 - 10.3 mg/dL [facility] Blood 05/10/2025 4:34 AM CDT 05/10/2025 4:44 AM CDT us Bar Gamble MD LAB BLOOD ORDERABLES Final R esult [facility] [place] [address] * Oxyhemoglobin, pulmonary artery (05/09/2025 8:55 PM CDT) Oxyhemoglobin, PA 50.3 % Comment: Interpretive Data No reference range established. Current interpretive data was last revised 2020. Blood 05/09/2025 8:55 PM CDT 05/09/2025 9:06 PM CDT Bar Gamble MD LAB BLOOD ORDERABLES Final R esult Performing Organization Address [facility] Co de Phone Number [facility] [place] [address] * (ABNORMAL) Hemoglobin total, pulmonary artery (05/09/2025 8:55 PM CDT) Hemoglobin total, PA 11.8(L) 13.0 - 17.5 g/dL Blood 05/09/2025 8:55 PM CDT 05/09/2025 9:06 PM CDT Bar Gamble MD LAB BLOOD ORDERABLES Final R esult Performing Organization Address [facility] Co de Phone Number [facility] [place] [address] * Lactate, whole blood (05/09/2025 8:55 PM CDT) Lactate, bld 1.1 0.7 - 2.0 mmol/L Blood 05/09/2025 8:55 PM CDT 05/09/2025 9:06 PM CDT Bar Gamble MD LAB BLOOD ORDERABLES Final R esult Performing Organization Address [facility] de Phone Number [facility] [place] [address] * Oxyhemoglobin, pulmonary artery (05/09/2025 5:04 PM CDT) Oxyhemoglobin, PA 47.6 % Comment: Interpretive Data No reference range established. Current interpretive data was last revised 2020. Blood 05/09/2025 5:04 PM CDT 05/09/2025 5:27 PM CDT Bar Gamble MD LAB BLOOD ORDERABLES Final R esult [facility] [place] [address] * (ABNORMAL) Hemoglobin total, pulmonary artery (05/09/2025 5:04 PM CDT) Hemoglobin total, PA 12.2(L) 13.0 - 17.5 g/dL Blood 05/09/2025 5:04 PM CDT 05/09/2025 5:27 PM CDT Bar Gamble MD LAB BLOOD ORDERABLES Final R esult Performing Organization Address [facility] Co de Phone Number [facility] [place] [address] * (ABNORMAL) eGFR (05/09/2025 5:04 PM CDT) eGFR 58(L) >=60 mL/min/1. 73 m2 Comment: Interpretive Data Reference Interval Normal >/= 90 mL/min/1.73m2 Mildly decreased* 60 - 89 mL/min/1.73m2 Mildly to moderately decreased 45 - 59 mL/min/1.73m2 Moderately to severely decreased 30 - 44 mL/min/1.73m2 Severely decreased 15 - 29 mL/min/1.73m2 Kidney Failure < 15 mL/min/1.73m2 *Relative to young adult level Estimated glomerular filtration rate is determined by the 2020 CKD-EPI equation recommended by the National Kidney Foundation (A Unifying Approach to GFR Estimation: Recommendations of the NKF-ASK Task Force on Reassessing the Inclusion of Race in Diagnosing Kidney Disease, JASN 2020). The CKD-EPI equation should not be used for patients with unstable renal function and has not been validated in children and those over 70. Current interpretive data was last reviewed 2021. Blood 05/09/2025 5:04 PM CDT 05/09/2025 5:35 PM CDT us Bar Gamble MD LAB BLOOD ORDERABLES Final R esult Performing Organization Address City/[facility] Co de Phone Number [facility] [place] [address] * Lactate, whole blood (05/09/2025 5:04 PM CDT) [facility] Lactate, bld 1.1 0.7 - 2.0 mmol/L Blood 05/09/2025 5:04 PM CDT 05/09/2025 5:27 PM CDT us Bar Gamble MD LAB BLOOD ORDERABLES Final R [facility] Performing Organization Address [facility] Co de Phone Number [facility] [place] [address] * Magnesium (05/09/2025 5:04 PM CDT) [facility] Magnesium 2.3 1.4 - 2.5 mg/dL Blood 05/09/2025 5:04 PM CDT 05/09/2025 5:35 PM CDT us Bar Gamble MD LAB BLOOD ORDERABLES Final R [facility] Performing Organization Address [facility] [place] [address] * (ABNORMAL) Basic metabolic panel (05/09/2025 5:04 PM CDT) [facility] Sodium 136 135 - 145 mmol/L Potassium, pl 4.8 3.3 - 4.9 mmol/L [facility] Chloride 98 97 - 110 mmol/L [facility] CO2 27 22 - 32 mmol/L [facility] Anion gap 11 2 - 15 mmol/L [facility] BUN 39(H) 6 - 25 mg/dL [facility] Creatinine 1.38(H) 0.80 - 1.30 mg/dL [facility] Glucose 143 70 - 199 mg/dL [facility] Comment: Interpretive Data Fasting glucose >/= 126 mg/dl is diagnostic for diabetes. Fasting is defined as no caloric intake for at least 8 hours. Fasting glucose between 100 mg/dl to 125 mg/dl is diagnostic of prediabetes. In a patient with classic symptoms of hyperglycemia or hyperglycemic crisis, a random glucose >/= 200 mg/dl is diagnostic for diabetes. In the absence of unequivocal hyperglycemia, results should be confirmed by repeat testing. The classification and Diagnosis of Diabetes Diabetes Care 2021; 46: S19-S40. Current interpretive data was last revised 2022. Calcium 9.6 8.5 - 10.3 mg/dL [facility] Blood 05/09/2025 5:04 PM CDT 05/09/2025 5:35 PM CDT Bar Gamble MD LAB BLOOD ORDERABLES Final R esult [facility] [place] [address] * XR Chest 1 View (05/09/2025 5:25 AM CDT) Anatomical Region Laterality Modality Body, Chest N/A Digital Radiogra phy 05/09/2025 9:18 AM CDT Impressions 05/09/2025 11:15 AM CDT The current study is compared with the prior radiograph dated 05/08/2025. A [place] catheter is in place, tip overlies the right inferior hilum, at or beyond the right interlobar pulmonary artery. There is mild bibasilar atelectasis and trace bilateral pleural effusions. The heart and mediastinal contours are stable. No pneumothorax Dictated by: Neel Nelson MD The radiology attending physician has personally reviewed this study, and had reviewed and/or edited this written report and agrees with it. Electronically signed by: Zev Jaimes M.D. Narrative 05/09/2025 11:15 AM CDT EXAMINATION: 1 view chest radiograph Procedure Note Zev Jaimes MD - 05/09/2025 EXAMINATION: 1 view chest radiograph IMPRESSION: The current study is compared with the prior radiograph dated 05/08/2025. A [place] catheter is in place, tip overlies the right inferior hilum, at or beyond the right interlobar pulmonary artery. There is mild bibasilar atelectasis and trace bilateral pleural effusions. The heart and mediastinal contours are stable. No pneumothorax Dictated by: Neel Nelson MD The radiology attending physician has personally reviewed this study, and had reviewed and/or edited this written report and agrees with it. Electronically signed by: Zev Jaimes M.D. us Bar Gamble MD IMG XR PROCEDURES Final Resu lt * Oxyhemoglobin, pulmonary artery (05/09/2025 5:22 AM CDT) Oxyhemoglobin, PA 70.6 % Comment: Interpretive Data No reference range established. Current interpretive data was last revised 2020. Blood 05/09/2025 5:22 AM CDT 05/09/2025 5:29 AM CDT us Bar Gamble MD LAB BLOOD ORDERABLES Final R esult Performing Organization Address City/[facility]/ZIP Co az Phone Number [facility] [place] [address] * (ABNORMAL) Hemoglobin total, pulmonary artery (05/09/2025 5:22 AM CDT) Hemoglobin total, PA 11.1(L) 13.0 - 17.5 g/dL Blood 05/09/2025 5:22 AM CDT 05/09/2025 5:29 AM CDT Bar Gamble MD LAB BLOOD ORDERABLES Final R esult [facility] [place] [address] * (ABNORMAL) eGFR (05/09/2025 5:22 AM CDT) eGFR 56(L) >=60 mL/min/1. 73 m2 Comment: Interpretive Data Reference Interval Normal >/= 90 mL/min/1.73m2 Mildly decreased* 60 - 89 mL/min/1.73m2 Mildly to moderately decreased 45 - 59 mL/min/1.73m2 Moderately to severely decreased 30 - 44 mL/min/1.73m2 Severely decreased 15 - 29 mL/min/1.73m2 Kidney Failure < 15 mL/min/1.73m2 *Relative to young adult level Estimated glomerular filtration rate is determined by the 2020 CKD-EPI equation recommended by the National Kidney Foundation (A Unifying Approach to GFR Estimation: Recommendations of the NKF-ASK Task Force on Reassessing the Inclusion of Race in Diagnosing Kidney Disease, JASN 2020). The CKD-EPI equation should not be used for patients with unstable renal function and has not been validated in children and those over 70. Current interpretive data was last reviewed 2021. Blood 05/09/2025 5:22 AM CDT 05/09/2025 5:32 AM CDT us Bar Gamble MD LAB BLOOD ORDERABLES Final R esult Performing Organization Address [facility] de Phone Number [facility] [place] [address] * Lactate, whole blood (05/09/2025 5:22 AM CDT) Lactate, bld 0.7 0.7 - 2.0 mmol/L Blood 05/09/2025 5:22 AM CDT 05/09/2025 5:29 AM CDT Bar Gamble MD LAB BLOOD ORDERABLES Final R esult Performing Organization Address [facility] Co de Phone Number [facility] [place] [address] * (ABNORMAL) aPTT (05/09/2025 5:22 AM CDT) [facility] aPTT 60(H) 28 - 38 sec Comment: Interpretive Data Heparin therapeutic range: 66.0 - 100.0 seconds. Range based on correlation with therapeutic heparin activity range of 0.3 - 0.7 Units/mL. Current interpretive data was last revised on 2023. Blood 05/09/2025 5:22 AM CDT 05/09/2025 5:36 AM CDT N[facility]ative [facility] - 05/09/2025 6:02 AM CDT STAT PTT timing: - Draw 6 hours after heparin infusion initiation - Draw 6 hours after every dose change until 2 consecutive PTTs are therapeutic - Once 2 consecutive PTTs are therapeutic, obtain with daily labs until infusion is discontinued - - Restart every 6 hour lab draws and follow instructions accordingly if PTT is outside of therapeutic range Do not draw lab from IV line that is actively infusing heparin. Use the opposite arm. If arm with actively infusing heparin must be used, pause the infusion for at least 2 minutes, and draw specimen below the IV site. For patients with a central venous catheter (CVC), lab must be drawn peripherally (not from CVC). Libia Suarez SWEET POTATO DISINTEGRATOR LAB BLOOD ORDERABLES Final Re sult Performing Organization Address [facility] Co de Phone Number [facility] [place] [address] * (ABNORMAL) CBC without differential (05/09/2025 5:22 AM CDT) [facility] WBC 8.65 3.80 - 9.90 K/cumm Hgb 10.9(L) 13.0 - 17.5 g/dL [facility] Hct 33.0(L) 38.9 - 50.3 % [facility] Plt 172 150 - 400 K/cumm [facility] MPV 11.6 9.1 - 12.[address] [facility] RBC 3.98(L) 4.30 - 5.80 M/cumm [facility] MCV 82.9 81.3 - 96.[address] [facility] MCH 27.4 27.1 - 33.[address] [facility] MCHC 33.0 32.3 - 35.7 g/dL [facility] RDW CV 15.7(H) 11.1 - 14.9 % [facility] RDW SD 47.6 35.7 - 48.[address] [facility] NRBC abs 0.00 0.00 - 0.01 K/cumm [facility] Blood 05/09/2025 5:22 AM CDT 05/09/2025 5:32 AM CDT us Bar Gamble MD LAB BLOOD ORDERABLES Final R esult Performing Organization Address City/[facility] Co de Phone Number [facility] [place] [address] * Phosphorus (05/09/2025 5:22 AM CDT) Phosphorus, pl 3.4 2.3 - 4.5 mg/dL Blood 05/09/2025 5:22 AM CDT 05/09/2025 5:32 AM CDT us Bar Gamble MD LAB BLOOD ORDERABLES Final R esult [facility] [place] [address] * Magnesium (05/09/2025 5:22 AM CDT) Magnesium 2.1 1.4 - 2.5 mg/dL Blood 05/09/2025 5:22 AM CDT 05/09/2025 5:32 AM CDT us Bar Gamble MD LAB BLOOD ORDERABLES Final R esult Performing Organization Address [facility] Co de Phone Number [facility] [place] [address] * (ABNORMAL) Hepatic function panel (05/09/2025 5:22 AM CDT) Pathologist [facility] Bilirubin, total 0.6 0.1 - 1.2 mg/dL Bilirubin, direct 0.3 0.1 - 0.3 mg/dL [facility] Protein, pl 5.8(L) 6.5 - 8.5 g/dL [facility] Albumin 3.6 3.5 - 5.0 g/dL [facility] Alk phos 243(H) 40 - 130 Units/L [facility] ALT 23 7 - 55 Units/L [facility] AST 19 10 - 50 Units/L [facility] Blood 05/09/2025 5:22 AM CDT 05/09/2025 5:32 AM CDT Bar Gamble MD LAB BLOOD ORDERABLES Final R esult Performing Organization Address [facility] de Phone Number [facility] [place] [address] * (ABNORMAL) Basic metabolic panel (05/09/2025 5:22 AM CDT) Pathologist [facility] Sodium 139 135 - 145 mmol/L Potassium, pl 3.9 3.3 - 4.9 mmol/L [facility] Chloride 99 97 - 110 mmol/L [facility] CO2 29 22 - 32 mmol/L [facility] Anion gap 11 2 - 15 mmol/L [facility] BUN 37(H) 6 - 25 mg/dL [facility] Creatinine 1.43(H) 0.80 - 1.30 mg/dL [facility] Glucose 105 70 - 199 mg/dL [facility] Comment: Interpretive Data Fasting glucose >/= 126 mg/dl is diagnostic for diabetes. Fasting is defined as no caloric intake for at least 8 hours. Fasting glucose between 100 mg/dl to 125 mg/dl is diagnostic of prediabetes. In a patient with classic symptoms of hyperglycemia or hyperglycemic crisis, a random glucose >/= 200 mg/dl is diagnostic for diabetes. In the absence of unequivocal hyperglycemia, results should be confirmed by repeat testing. The classification and Diagnosis of Diabetes Diabetes Care 2021; 46: S19-S40. Current interpretive data was last revised 2022. Calcium 8.8 8.5 - 10.3 mg/dL [facility] Blood 05/09/2025 5:22 AM CDT 05/09/2025 5:32 AM CDT Bar Gamble MD LAB BLOOD ORDERABLES Final R esult Performing Organization Address [facility] Co de Phone Number [facility] [place] [address] * Oxyhemoglobin, pulmonary artery (05/09/2025 12:00 AM CDT) Oxyhemoglobin, PA 64.2 % Comment: Interpretive Data No reference range established. Current interpretive data was last revised 2020. Blood 05/09/2025 05/09/2025 12: 07 AM CDT Bar Gamble MD LAB BLOOD ORDERABLES Final R esult Performing Organization Address [facility] Co de Phone Number [facility] [place] [address] * (ABNORMAL) Hemoglobin total, pulmonary artery (05/09/2025 12:00 AM CDT) Hemoglobin total, PA 11.0(L) 13.0 - 17.5 g/dL Blood 05/09/2025 05/09/2025 12: 07 AM CDT Bar Gamble MD LAB BLOOD ORDERABLES Final R esult Performing Organization Address [facility] Co de Phone Number [facility] [place] [address] * (ABNORMAL) Lactate, whole blood (05/09/2025 12:00 AM CDT) Lactate, bld 0.6(L) 0.7 - 2.0 mmol/L Blood 05/09/2025 05/09/2025 12: 07 AM CDT us Bar Gamble MD LAB BLOOD ORDERABLES Final R esult Performing Organization Address [facility] Co de Phone Number [facility] [place] [address] * Antibody identification (05/08/2025 5:38 PM CDT) Pathologist [facility] Antibody ID 1 Anti-CD38 Comment:Panreactive -CD38 on reagent RBCs reacting with anti-CD38 therapy. DTT treatment removes cell surface CD38 and allows detection of common clinically significant antibodies except those against [place] antigens. TRANSFUSION 2015;55;[id number] Blood 05/08/2025 5:38 PM CDT 05/08/2025 5:38 PM CDT us Libia Suarez NP LAB BLOOD BANK TEST ORDERABLE S Final Result Performing Organization Address [facility] de Phone Number [facility] [place] [address] * Oxyhemoglobin, pulmonary artery (05/08/2025 4:22 PM CDT) Pathologist [facility] Oxyhemoglobin, PA 55.6 % Comment: Interpretive Data No reference range established. Current interpretive data was last revised 2020. Blood 05/08/2025 4:22 PM CDT 05/08/2025 4:36 PM CDT us Bar Gamble MD LAB BLOOD ORDERABLES Final R esult Performing Organization Address [facility] Co de Phone Number [facility] [place] [address] * (ABNORMAL) Hemoglobin total, pulmonary artery (05/08/2025 4:22 PM CDT) Hemoglobin total, PA 12.0(L) 13.0 - 17.5 g/dL Blood 05/08/2025 4:22 PM CDT 05/08/2025 4:36 PM CDT us Bra Gamble MD LAB BLOOD ORDERABLES Final R esult Performing Organization Address City/[facility] Co de Phone Number [facility] [place] [address] * (ABNORMAL) eGFR (05/08/2025 4:22 PM CDT) eGFR 59(L) >=60 mL/min/1. 73 m2 Comment: Interpretive Data Reference Interval Normal >/= 90 mL/min/1.73m2 Mildly decreased* 60 - 89 mL/min/1.73m2 Mildly to moderately decreased 45 - 59 mL/min/1.73m2 Moderately to severely decreased 30 - 44 mL/min/1.73m2 Severely decreased 15 - 29 mL/min/1.73m2 Kidney Failure < 15 mL/min/1.73m2 *Relative to young adult level Estimated glomerular filtration rate is determined by the 2020 CKD-EPI equation recommended by the National Kidney Foundation (A Unifying Approach to GFR Estimation: Recommendations of the NKF-ASK Task Force on Reassessing the Inclusion of Race in Diagnosing Kidney Disease, JASN 2020). The CKD-EPI equation should not be used for patients with unstable renal function and has not been validated in children and those over 70. Current interpretive data was last reviewed 2021. Blood 05/08/2025 4:22 PM CDT 05/08/2025 4:35 PM CDT us Bar Gamble MD LAB BLOOD ORDERABLES Final R esult [facility] [place] [address] * Lactate, whole blood (05/08/2025 4:22 PM CDT) Lactate, bld 0.7 0.7 - 2.0 mmol/L Blood 05/08/2025 4:22 PM CDT 05/08/2025 4:36 PM CDT us Bar Gamble MD LAB BLOOD ORDERABLES Final R esult Performing Organization Address [facility] [place] [address] * (ABNORMAL) Type and screen (05/08/2025 4:22 PM CDT) ABO Rh O Positive Poppy, indirect Positive(A) [facility] Blood 05/08/2025 4:22 PM CDT 05/08/2025 4:44 PM CDT Narrative [facility] - 05/08/2025 5:38 PM CDT Has the patient had Daratumumab or Isatuximab in the past 6 months?->Unknown us Libia Suarez NP LAB BLOOD BANK TEST ORDERABLE S Final Result Performing Organization Address [facility] de Phone Number [facility] [place] [address] * Phosphorus (05/08/2025 4:22 PM CDT) Phosphorus, pl 3.7 2.3 - 4.5 mg/dL Blood 05/08/2025 4:22 PM CDT 05/08/2025 4:35 PM CDT us Bar Gamble MD LAB BLOOD ORDERABLES Final R esult Performing Organization Address [facility]/ZIP Co de Phone Number [facility] [place] [address] * Magnesium (05/08/2025 4:22 PM CDT) [facility] Magnesium 2.3 1.4 - 2.5 mg/dL Blood 05/08/2025 4:22 PM CDT 05/08/2025 4:35 PM CDT Bar Gamble MD LAB BLOOD ORDERABLES Final R esult [facility] [place] [address] * (ABNORMAL) Basic metabolic panel (05/08/2025 4:22 PM CDT) [facility] Sodium 136 135 - 145 mmol/L Potassium, pl 4.7 3.3 - 4.9 mmol/L [facility] Chloride 99 97 - 110 mmol/L [facility] CO2 26 22 - 32 mmol/L [facility] Anion gap 11 2 - 15 mmol/L [facility] BUN 36(H) 6 - 25 mg/dL [facility] Creatinine 1.37(H) 0.80 - 1.30 mg/dL [facility] Glucose 116 70 - 199 mg/dL [facility] Comment: Interpretive Data Fasting glucose >/= 126 mg/dl is diagnostic for diabetes. Fasting is defined as no caloric intake for at least 8 hours. Fasting glucose between 100 mg/dl to 125 mg/dl is diagnostic of prediabetes. In a patient with classic symptoms of hyperglycemia or hyperglycemic crisis, a random glucose >/= 200 mg/dl is diagnostic for diabetes. In the absence of unequivocal hyperglycemia, results should be confirmed by repeat testing. The classification and Diagnosis of Diabetes Diabetes Care 2021; 46: S19-S40. Current interpretive data was last revised 2022. Calcium 9.0 8.5 - 10.3 mg/dL [facility] Blood 05/08/2025 4:22 PM CDT 05/08/2025 4:35 PM CDT Bar Gamble MD LAB BLOOD ORDERABLES Final R esult Performing Organization Address [facility] Co de Phone Number [facility] [place] [address] * Oxyhemoglobin, pulmonary artery (05/08/2025 8:21 AM CDT) Oxyhemoglobin, PA 58.3 % Comment: Interpretive Data No reference range established. Current interpretive data was last revised 2020. Blood 05/08/2025 8:21 AM CDT 05/08/2025 8:34 AM CDT Bar Gamble MD LAB BLOOD ORDERABLES Final R esult Performing Organization Address [facility] de Phone Number [facility] [place] [address] * (ABNORMAL) Hemoglobin total, pulmonary artery (05/08/2025 8:21 AM CDT) Hemoglobin total, PA 11.9(L) 13.0 - 17.5 g/dL Blood 05/08/2025 8:21 AM CDT 05/08/2025 8:34 AM CDT Bar Gamble MD LAB BLOOD ORDERABLES Final R esult Performing Organization Address [facility] Co de Phone Number [facility] [place] [address] * Lactate, whole blood (05/08/2025 8:21 AM CDT) Lactate, bld 0.9 0.7 - 2.0 mmol/L Blood 05/08/2025 8:21 AM CDT 05/08/2025 8:34 AM CDT Bar Gamble MD LAB BLOOD ORDERABLES Final R esult [facility] [place] [address] * XR Chest 1 View (05/08/2025 5:48 AM CDT) Anatomical Region Laterality Modality Body, Chest N/A Digital Radiogra phy 05/08/2025 10:3 7 AM CDT Impressions 05/08/2025 11:06 AM CDT Comparison with 05/07/2020 5:33 AM. A right PICC catheter is in place with tip overlying superior vena cava. Right internal jugular [place]-Jayne catheter tip remains in a right lower lobe segmental pulmonary artery. Retraction is recommended. Trace bilateral pleural effusions with associated atelectasis. No pneumothorax. Stable cardiac mediastinal silhouette. Findings concerning [place]-Jayne catheter position were communicated to Dr. Acosta via telephone by Dr. Cotton with confirmation of receipt at 10:34 AM on 05/08/2025. Dictated by: Magali Cotton MD The radiology attending physician has personally reviewed this study, and had reviewed and/or edited this written report and agrees with it. Electronically signed by: Miguel Angel Ng M.D. Narrative 05/08/2025 11:06 AM CDT EXAMINATION: 1 view chest radiograph Procedure Note Miguel Angel Ng MD - 05/08/2025 EXAMINATION: 1 view chest radiograph IMPRESSION: Comparison with 05/07/2020 5:33 AM. A right PICC catheter is in place with tip overlying superior vena cava. Right internal jugular [place]-Jayne catheter tip remains in a right lower lobe segmental pulmonary artery. Retraction is recommended. Trace bilateral pleural effusions with associated atelectasis. No pneumothorax. Stable cardiac mediastinal silhouette. Findings concerning [place]-Jayne catheter position were communicated to Dr. Acosta via telephone by Dr. Cotton with confirmation of receipt at 10:34 AM on 05/08/2025. Dictated by: aMgali Cotton MD The radiology attending physician has personally reviewed this study, and had reviewed and/or edited this written report and agrees with it. Electronically signed by: Miguel [place] Ng M.D. us Bar Gamble MD IMG XR PROCEDURES Final Resu lt * Oxyhemoglobin, pulmonary artery (05/08/2025 5:29 AM CDT) Oxyhemoglobin, PA 64.6 % Comment: Interpretive Data No reference range established. Current interpretive data was last revised 2020. Blood 05/08/2025 5:29 AM CDT 05/08/2025 5:46 AM CDT us Bar Gamble MD LAB BLOOD ORDERABLES Final R esult Performing Organization Address City/[facility] Co de Phone Number [facility] [place] [address] * (ABNORMAL) Hemoglobin total, pulmonary artery (05/08/2025 5:29 AM CDT) Hemoglobin total, PA 11.3(L) 13.0 - 17.5 g/dL Blood 05/08/2025 5:29 AM CDT 05/08/2025 5:46 AM CDT us Bar Gamble MD LAB BLOOD ORDERABLES Final R esult [facility] [place] [address] * eGFR (05/08/2025 5:29 AM CDT) eGFR 61 >=60 mL/min/1. 73 m2 Comment: Interpretive Data Reference Interval Normal >/= 90 mL/min/1.73m2 Mildly decreased* 60 - 89 mL/min/1.73m2 Mildly to moderately decreased 45 - 59 mL/min/1.73m2 Moderately to severely decreased 30 - 44 mL/min/1.73m2 Severely decreased 15 - 29 mL/min/1.73m2 Kidney Failure < 15 mL/min/1.73m2 *Relative to young adult level Estimated glomerular filtration rate is determined by the 2020 CKD-EPI equation recommended by the National Kidney Foundation (A Unifying Approach to GFR Estimation: Recommendations of the NKF-ASK Task Force on Reassessing the Inclusion of Race in Diagnosing Kidney Disease, JASN 2020). The CKD-EPI equation should not be used for patients with unstable renal function and has not been validated in children and those over 70. Current interpretive data was last reviewed 2021. Blood 05/08/2025 5:29 AM CDT 05/08/2025 5:46 AM CDT us Bar Gamble MD LAB BLOOD ORDERABLES Final R esult Performing Organization Address [facility] Co de Phone Number [facility] [place] [address] * Lactate, whole blood (05/08/2025 5:29 AM CDT) Lactate, bld 0.7 0.7 - 2.0 mmol/L Blood 05/08/2025 5:29 AM CDT 05/08/2025 5:46 AM CDT us Zev Cowart MD PhD LAB BLOOD ORDERABLES Fi nal Result Performing Organization Address [facility] Co de Phone Number [facility] [place] [address] * (ABNORMAL) aPTT (05/08/2025 5:29 AM CDT) aPTT 66(H) 28 - 38 sec Comment: Interpretive Data Heparin therapeutic range: 66.0 - 100.0 seconds. Range based on correlation with therapeutic heparin activity range of 0.3 - 0.7 Units/mL. Current interpretive data was last revised on 2023. Blood 05/08/2025 5:29 AM CDT 05/08/2025 5:46 AM CDT Narrative [facility] - 05/08/2025 6:18 AM CDT STAT PTT timing: - Draw 6 hours after heparin infusion initiation - Draw 6 hours after every dose change until 2 consecutive PTTs are therapeutic - Once 2 consecutive PTTs are therapeutic, obtain with daily labs until infusion is discontinued - - Restart every 6 hour lab draws and follow instructions accordingly if PTT is outside of therapeutic range Do not draw lab from IV line that is actively infusing heparin. Use the opposite arm. If arm with actively infusing heparin must be used, pause the infusion for at least 2 minutes, and draw specimen below the IV site. For patients with a central venous catheter (CVC), lab must be drawn peripherally (not from CVC). Libia Suarez [employer] DISINTEGRATOR LAB BLOOD ORDERABLES Final Re sult [facility] [place] [address] * (ABNORMAL) CBC without differential (05/08/2025 5:29 AM CDT) [facility] WBC 8.89 3.80 - 9.90 K/cumm Hgb 11.0(L) 13.0 - 17.5 g/dL [facility] Hct 33.6(L) 38.9 - 50.3 % [facility] Plt 187 150 - 400 K/cumm [facility] MPV 11.9 9.1 - 12.[address] [facility] RBC 4.03(L) 4.30 - 5.80 M/cumm [facility] MCV 83.4 81.3 - 96.[address] [facility] MCH 27.3 27.1 - 33.[address] [facility] MCHC 32.7 32.3 - 35.7 g/dL [facility] RDW CV 15.5(H) 11.1 - 14.9 % [facility] RDW SD 47.6 35.7 - 48.[address] [facility] NRBC abs 0.00 0.00 - 0.01 K/cumm [facility] Blood 05/08/2025 5:29 AM CDT 05/08/2025 5:46 AM CDT Bar Gamble MD LAB BLOOD ORDERABLES Final R esult Performing Organization Address [facility] Co de Phone Number [facility] [place] [address] * Phosphorus (05/08/2025 5:29 AM CDT) Phosphorus, pl 3.2 2.3 - 4.5 mg/dL Blood 05/08/2025 5:29 AM CDT 05/08/2025 5:46 AM CDT Bar Gamble MD LAB BLOOD ORDERABLES Final R esult Performing Organization Address [facility] de Phone Number [facility] [place] [address] * Magnesium (05/08/2025 5:29 AM CDT) Magnesium 2.2 1.4 - 2.5 mg/dL Blood 05/08/2025 5:2 9 AM CDT 05/08/2025 5:46 AM CDT Result [facility] Bar Gamble MD LAB BLOOD ORDERABLES Final R esult Performing Organization Address [facility] de Phone Number [facility] [place] [address] * (ABNORMAL) Hepatic function panel (05/08/2025 5:29 AM CDT) Bilirubin, total 0.8 0.1 - 1.2 mg/dL Bilirubin, direct 0.4(H) 0.1 - 0.3 mg/dL [facility] Protein, pl 6.2(L) 6.5 - 8.5 g/dL [facility] Albumin 3.8 3.5 - 5.0 g/dL [facility] Alk phos 258(H) 40 - 130 Units/L [facility] ALT 26 7 - 55 Units/L [facility] AST 26 10 - 50 Units/L [facility] Blood 05/08/2025 5:29 AM CDT 05/08/2025 5:46 AM CDT Bar Gamble MD LAB BLOOD ORDERABLES Final R esult Performing Organization Address [facility]/ZIP Co de Phone Number [facility] [place] [address] * (ABNORMAL) Basic metabolic panel (05/08/2025 5:29 AM CDT) Sodium 136 135 - 145 mmol/L Potassium, pl 3.8 3.3 - 4.9 mmol/L [facility] Chloride 98 97 - 110 mmol/L [facility] CO2 30 22 - 32 mmol/L [facility] Anion gap 8 2 - 15 mmol/L [facility] BUN 39(H) 6 - 25 mg/dL [facility] Creatinine 1.33(H) 0.80 - 1.30 mg/dL [facility] Glucose 109 70 - 199 mg/dL [facility] Comment: Interpretive Data Fasting glucose >/= 126 mg/dl is diagnostic for diabetes. Fasting is defined as no caloric intake for at least 8 hours. Fasting glucose between 100 mg/dl to 125 mg/dl is diagnostic of prediabetes. In a patient with classic symptoms of hyperglycemia or hyperglycemic crisis, a random glucose >/= 200 mg/dl is diagnostic for diabetes. In the absence of unequivocal hyperglycemia, results should be confirmed by repeat testing. The classification and Diagnosis of Diabetes Diabetes Care 2021; 46: S19-S40. Current interpretive data was last revised 2022. Calcium 9.4 8.5 - 10.3 mg/dL [facility] Blood 05/08/2025 5:29 AM CDT 05/08/2025 5:46 AM CDT Bar Gamble MD LAB BLOOD ORDERABLES Final R esult Performing Organization Address [facility]/ZIP Co de Phone Number [facility] [place] [address] * Oxyhemoglobin, pulmonary artery (05/07/2025 11:15 PM CDT) Oxyhemoglobin, PA 66.3 % Comment: Interpretive Data No reference range established. Current interpretive data was last revised 2020. Blood 05/07/2025 11:1 5 PM CDT 05/08/2025 12:22 AM CDT us Bar Gamble MD LAB BLOOD ORDERABLES Final R esult Performing Organization Address [facility] de Phone Number [facility] [place] [address] * (ABNORMAL) Hemoglobin total, pulmonary artery (05/07/2025 11:15 PM CDT) Hemoglobin total, PA 12.2(L) 13.0 - 17.5 g/dL Blood 05/07/2025 11:1 5 PM CDT 05/08/2025 12:22 AM CDT us Bar Gamble MD LAB BLOOD ORDERABLES Final R esult Performing Organization Address [facility] Co de Phone Number [facility] [place] [address] * Lactate, whole blood (05/07/2025 11:15 PM CDT) Lactate, bld 0.9 0.7 - 2.0 mmol/L Blood 05/07/2025 11:1 5 PM CDT 05/08/2025 12:22 AM CDT us Bar Gamble MD LAB BLOOD ORDERABLES Final R esult Performing Organization Address [facility] Co de Phone Number [facility] [place] [address] * Oxyhemoglobin, pulmonary artery (05/07/2025 4:15 PM CDT) Pathologist [facility] Oxyhemoglobin, PA 57.4 % Comment: Interpretive Data No reference range established. Current interpretive data was last revised 2020. Blood 05/07/2025 4:15 PM CDT 05/07/2025 4:23 PM CDT us Bar Gamble MD LAB [place]LOOD [place] [address] * (ABNORMAL) Hemoglobin total, pulmonary artery (05/07/2025 4:15 PM CDT) [facility] Hemoglobin total, PA 12.6(L) 13.0 - 17.5 g/dL Blood 05/07/2025 4:15 PM CDT 05/07/2025 4:23 PM CDT us Bar Gamble MD LAB BLOOD ORDERABLES Final R esult [facility] [place] [address] * eGFR (05/07/2025 4:15 PM CDT) Pathologist [facility] eGFR 64 >=60 mL/min/1. 73 m2 Comment: Interpretive Data Reference Interval Normal >/= 90 mL/min/1.73m2 Mildly decreased* 60 - 89 mL/min/1.73m2 Mildly to moderately decreased 45 - 59 mL/min/1.73m2 Moderately to severely decreased 30 - 44 mL/min/1.73m2 Severely decreased 15 - 29 mL/min/1.73m2 Kidney Failure < 15 mL/min/1.73m2 *Relative to young adult level Estimated glomerular filtration rate is determined by the 2020 CKD-EPI equation recommended by the National Kidney Foundation (A Unifying Approach to GFR Estimation: Recommendations of the NKF-ASK Task Force on Reassessing the Inclusion of Race in Diagnosing Kidney Disease, JASN 2020). The CKD-EPI equation should not be used for patients with unstable renal function and has not been validated in children and those over 70. Current interpretive data was last reviewed 2021. Blood 05/07/2025 4:15 PM CDT 05/07/2025 4:34 PM CDT us Bar Gamble MD LAB BLOOD ORDERABLES Final R esult Performing Organization Address [facility] Co de Phone Number [facility] [place] [address] * Lactate, whole blood (05/07/2025 4:15 PM CDT) Lactate, bld 1.2 0.7 - 2.0 mmol/L Blood 05/07/2025 4:15 PM CDT 05/07/2025 4:23 PM CDT Bar Gamble MD LAB BLOOD ORDERABLES Final R esult Performing Organization Address [facility] Co de Phone Number [facility] [place] [address] * Phosphorus (05/07/2025 4:15 PM CDT) Phosphorus, pl 3.7 2.3 - 4.5 mg/dL Blood 05/07/2025 4:15 PM CDT 05/07/2025 4:34 PM CDT Bar Gamble MD LAB BLOOD ORDERABLES Final R esult Performing Organization Address [facility] Co de Phone Number [facility] [place] [address] * Magnesium (05/07/2025 4:15 PM CDT) Pathologist [facility] Magnesium 2.2 1.4 - 2.5 mg/dL Blood 05/07/2025 4:15 PM CDT 05/07/2025 4:34 PM CDT Bar Gamble MD LAB BLOOD ORDERABLES Final R esult [facility] [place] [address] * (ABNORMAL) Basic metabolic panel (05/07/2025 4:15 PM CDT) [facility] Sodium 134(L) 135 - 145 mmol/L Potassium, pl 4.3 3.3 - 4.9 mmol/L [facility] Chloride 95(L) 97 - 110 mmol/L [facility] CO2 28 22 - 32 mmol/L [facility] Anion gap 11 2 - 15 mmol/L [facility] BUN 40(H) 6 - 25 mg/dL [facility] Creatinine 1.28 0.80 - 1.30 mg/dL [facility] Glucose 176 70 - 199 mg/dL [facility] Comment: Interpretive Data Fasting glucose >/= 126 mg/dl is diagnostic for diabetes. Fasting is defined as no caloric intake for at least 8 hours. Fasting glucose between 100 mg/dl to 125 mg/dl is diagnostic of prediabetes. In a patient with classic symptoms of hyperglycemia or hyperglycemic crisis, a random glucose >/= 200 mg/dl is diagnostic for diabetes. In the absence of unequivocal hyperglycemia, results should be confirmed by repeat testing. The classification and Diagnosis of Diabetes Diabetes Care 2021; 46: S19-S40. Current interpretive data was last revised 2022. Calcium 9.6 8.5 - 10.3 mg/dL [facility] Blood 05/07/2025 4:15 PM CDT 05/07/2025 4:34 PM CDT Bar Gamble MD LAB BLOOD ORDERABLES Final R esult Performing Organization Address [facility]/ZIP Co de Phone Number [facility] [place] [address] * MID Lab Inf Prevention Critical Callback Axilla/Groin (05/07/2025 11:38 AM CDT) TestName C. auris Date Notified [id number] [facility] Time Notified 918 DULCE MARIA [facility] Called/Read Back Bebo Avalos [facility] Called By Pardeep العراقي [facility] Axilla/Groin 05/07/2025 11:3 8 AM CDT 05/07/2025 11:59 AM CDT Sathish Gongora MD LAB MICROBIOLOGY - GENERAL ORDER LINH Final Result Performing Organization Address [facility] de Phone Number [facility] [place] [address] * (ABNORMAL) Infection Prevention Shady auris PCR, surveillance Axilla/Groin (05/07/2025 11:38 AM CDT) Pathologist [facility] Shady auris DNA Detected( A) Not Detected [facility] Comment: Interpretive Data Testing performed by [facility] Molecular Infectious Disease Laboratory using the Lucas carlos [id number] Shady auris assay. This assay detects DNA from Shady auris using Real-Time PCR. This assay is laboratory developed and is not cleared by the [employer] Food and Drug Administration. The performance characteristics have been verified by the [facility] Molecular Infectious Disease Laboratory. Axilla/Groin 05/07/2025 11:3 8 AM CDT 05/07/2025 11:59 AM CDT us Sathish Gongora MD LAB MICROBIOLOGY - GENERAL ORDER LINH Final Result Performing Organization Address [facility]/ZIP Co de Phone Number [facility] [place] [address] [facility] * Shady (yeast) culture Axilla/Groin (05/07/2025 11:38 AM CDT) Report Final Report: No Growth of Shady auris Culture reflexed from positive Shady auris PCR for epidemiological purposes. Not billed to patient. Axilla/Groin 05/07/2025 11:3 8 AM CDT 05/08/2025 8:54 AM CDT Narrative [facility] - 05/15/2025 1:45 PM CDT Reflex culture ordered based upon C AURIS PCR result. Interpretation data: This culture is NOT intended for the detection of filamentous fungi, endemic mycosis, or Cryptococcus. If detected, yeast will be reported and identified. Routine susceptibility is not performed, but if required, please contact the Microbiology Laboratory at . Sathish Gongora MD LAB MICROBIOLOGY - GENERAL ORDER LINH Final Result Performing Organization Address [facility] Co de Phone Number [facility] [place] [address] * Oxyhemoglobin, pulmonary artery (05/07/2025 11:34 AM CDT) Pathologist [facility] Oxyhemoglobin, PA 50.1 % Comment: Interpretive Data No reference range established. Current interpretive data was last revised 2020. Blood 05/07/2025 11:3 4 AM CDT 05/07/2025 11:47 AM CDT Bar Gamble MD LAB BLOOD ORDERABLES Final R esult [facility] [place] [address] * (ABNORMAL) Hemoglobin total, pulmonary artery (05/07/2025 11:34 AM CDT) Pathologist [facility] Hemoglobin total, PA 12.2(L) 13.0 - 17.5 g/dL Blood 05/07/2025 11:3 4 AM CDT 05/07/2025 11:47 AM CDT Bar Gamble MD LAB BLOOD ORDERABLES Final R esult Performing Organization Address City/[facility] Co de Phone Number [facility] [place] [address] * Potassium, whole blood (05/07/2025 11:34 AM CDT) Potassium, bld 4.1 3.3 - 4.9 mmol/L Blood 05/07/2025 11:3 4 AM CDT 05/07/2025 11:47 AM CDT us Bar Gamble MD LAB BLOOD ORDERABLES Final R esult Performing Organization Address [facility] de Phone Number [facility] [place] [address] * Lactate, whole blood (05/07/2025 11:34 AM CDT) Lactate, bld 1.0 0.7 - 2.0 mmol/L Blood 05/07/2025 11:3 4 AM CDT 05/07/2025 11:47 AM CDT Bar Gamble MD LAB BLOOD ORDERABLES Final R esult Performing Organization Address [facility] [place] [address] * XR Chest 1 View (05/07/2025 6:22 AM CDT) Anatomical Region Laterality Modality Body, Chest N/A Digital Radiogra phy 05/07/2025 8:56 AM CDT Impressions 05/07/2025 10:26 AM CDT The current study is compared with the prior radiograph dated 2025. A [place]-Jayne catheter is in place, tip overlies the right lower lobe pulmonary artery, unchanged. Right peripherally inserted central venous catheter with tip at superior cavoatrial junction. Mild bibasilar atelectasis. Trace bilateral pleural effusions. No pneumothorax. The heart and mediastinal contours are stable. Dictated by: Neel Nelson MD The radiology attending physician has personally reviewed this study, and had reviewed and/or edited this written report and agrees with it. Electronically signed by: Dmitry Armas MD, PHD Narrative 05/07/2025 10:26 AM CDT EXAMINATION: 1 view chest radiograph Procedure Note Dmitry Armas MD PhD - 05/07/2025 EXAMINATION: 1 view chest radiograph IMPRESSION: The current study is compared with the prior radiograph dated 2025. A [place] catheter is in place, tip overlies the right lower lobe pulmonary artery, unchanged. Right peripherally inserted central venous catheter with tip at superior cavoatrial junction. Mild bibasilar atelectasis. Trace bilateral pleural effusions. No pneumothorax. The heart and mediastinal contours are stable. Dictated by: Neel Nelson MD The radiology attending physician has personally reviewed this study, and had reviewed and/or edited this written report and agrees with it. Electronically signed by: Dmitry Armas MD, PHD us Bar Gamble MD IMG XR PROCEDURES Final Resu lt * (ABNORMAL) aPTT (05/07/2025 4:25 AM CDT) aPTT 61(H) 28 - 38 sec Comment: Interpretive Data Heparin therapeutic range: 66.0 - 100.0 seconds. Range based on correlation with therapeutic heparin activity range of 0.3 - 0.7 Units/mL. Current interpretive data was last revised on 2023. Blood 05/07/2025 4:25 AM CDT 05/07/2025 4:52 AM CDT [facility]ative [facility] - 05/07/2025 5:01 AM CDT STAT PTT timing: - Draw 6 hours after heparin infusion initiation - Draw 6 hours after every dose change until 2 consecutive PTTs are therapeutic - Once 2 consecutive PTTs are therapeutic, obtain with daily labs until infusion is discontinued - - Restart every 6 hour lab draws and follow instructions accordingly if PTT is outside of therapeutic range Do not draw lab from IV line that is actively infusing heparin. Use the opposite arm. If arm with actively infusing heparin must be used, pause the infusion for at least 2 minutes, and draw specimen below the IV site. For patients with a central venous catheter (CVC), lab must be drawn peripherally (not from CVC). Libia Suarez NP LAB BLOOD ORDERABLES Final Re sult Performing Organization Address [facility] de Phone Number [facility] [place] [address] * Oxyhemoglobin, pulmonary artery (05/07/2025 4:23 AM CDT) Oxyhemoglobin, PA 61.2 % Comment: Interpretive Data No reference range established. Current interpretive data was last revised 2020. Blood 05/07/2025 4:23 AM CDT 05/07/2025 4:38 AM CDT Bar Gamble MD LAB BLOOD ORDERABLES Final R esult Performing Organization Address [facility] Co de Phone Number [facility] [place] [address] * (ABNORMAL) Hemoglobin total, pulmonary artery (05/07/2025 4:23 AM CDT) Hemoglobin total, PA 11.3(L) 13.0 - 17.5 g/dL Blood 05/07/2025 4:23 AM CDT 05/07/2025 4:38 AM CDT Bar Gamble MD LAB BLOOD ORDERABLES Final R esult Performing Organization Address [facility] Co de Phone Number [facility] [place] [address] * (ABNORMAL) eGFR (05/07/2025 4:23 AM CDT) eGFR 58(L) >=60 mL/min/1. 73 m2 Comment: Interpretive Data Reference Interval Normal >/= 90 mL/min/1.73m2 Mildly decreased* 60 - 89 mL/min/1.73m2 Mildly to moderately decreased 45 - 59 mL/min/1.73m2 Moderately to severely decreased 30 - 44 mL/min/1.73m2 Severely decreased 15 - 29 mL/min/1.73m2 Kidney Failure < 15 mL/min/1.73m2 *Relative to young adult level Estimated glomerular filtration rate is determined by the 2020 CKD-EPI equation recommended by the National Kidney Foundation (A Unifying Approach to GFR Estimation: Recommendations of the NKF-ASK Task Force on Reassessing the Inclusion of Race in Diagnosing Kidney Disease, JASN 2020). The CKD-EPI equation should not be used for patients with unstable renal function and has not been validated in children and those over 70. Current interpretive data was last reviewed 2021. Blood 05/07/2025 4:23 AM CDT 05/07/2025 5:06 AM CDT us Bar Gamble MD LAB BLOOD ORDERABLES Final R esult Performing Organization Address City/[facility]/ZIP Co de Phone Number [facility] [place] [address] * Lactate, whole blood (05/07/2025 4:23 AM CDT) Lactate, bld 0.7 0.7 - 2.0 mmol/L Blood 05/07/2025 4:23 AM CDT 05/07/2025 4:38 AM CDT Bar Gamble MD LAB BLOOD ORDERABLES Final R esult [facility] [place] [address] * (ABNORMAL) CBC without differential (05/07/2025 4:23 AM CDT) Pathologist [facility] WBC 9.14 3.80 - 9.90 K/cumm Hgb 11.0(L) 13.0 - 17.5 g/dL [facility] Hct 32.7(L) 38.9 - 50.3 % [facility] Plt 191 150 - 400 K/cumm [facility] MPV 12.3 9.1 - 12.[address] [facility] RBC 3.96(L) 4.30 - 5.80 M/cumm [facility] MCV 82.6 81.3 - 96.[address] [facility] MCH 27.8 27.1 - 33.[address] [facility] MCHC 33.6 32.3 - 35.7 g/dL [facility] RDW CV 15.5(H) 11.1 - 14.9 % [facility] RDW SD 47.0 35.7 - 48.[address] [facility] NRBC abs 0.00 0.00 - 0.01 K/cumm [facility] Blood 05/07/2025 4:2 3 AM CDT 05/07/2025 5:06 AM CDT us Bar Gamble MD LAB BLOOD ORDERABLES Final R esult Performing Organization Address City/[facility]/ZIP Co de Phone Number [facility] [place] [address] * Phosphorus (05/07/2025 4:23 AM CDT) Pathologist [facility] Phosphorus, pl 3.6 2.3 - 4.5 mg/dL Blood 05/07/2025 4:23 AM CDT 05/07/2025 5:06 AM CDT us Bar Gamble MD LAB BLOOD ORDERABLES Final R esult [facility] [place] [address] * Magnesium (05/07/2025 4:23 AM CDT) [facility] Magnesium 2.1 1.4 - 2.5 mg/dL Blood 05/07/2025 4:23 AM CDT 05/07/2025 5:06 AM CDT Bar Gamble MD LAB BLOOD ORDERABLES Final R esult Performing Organization Address City/[facility]/ZIP Co de Phone Number [facility] [place] [address] * (ABNORMAL) Hepatic function panel (05/07/2025 4:23 AM CDT) [facility] Bilirubin, total 0.7 0.1 - 1.2 mg/dL Bilirubin, direct 0.4(H) 0.1 - 0.3 mg/dL [facility] Protein, pl 6.1(L) 6.5 - 8.5 g/dL [facility] Albumin 3.9 3.5 - 5.0 g/dL [facility] Alk phos 245(H) 40 - 130 Units/L [facility] ALT 23 7 - 55 Units/L [facility] AST 22 10 - 50 Units/L [facility] Blood 05/07/2025 4:23 AM CDT 05/07/2025 5:06 AM CDT Bar Gamble MD LAB [place]LOOD [place] [address] * (ABNORMAL) Basic metabolic panel (05/07/2025 4:23 AM CDT) [facility] Sodium 138 135 - 145 mmol/L Potassium, pl 3.3 3.3 - 4.9 mmol/L [facility] Chloride 98 97 - 110 mmol/L [facility] CO2 32 22 - 32 mmol/L [facility] Anion gap 8 2 - 15 mmol/L [facility] BUN 42(H) 6 - 25 mg/dL [facility] Creatinine 1.39(H) 0.80 - 1.30 mg/dL [facility] Glucose 117 70 - 199 mg/dL [facility] Comment: Interpretive Data Fasting glucose >/= 126 mg/dl is diagnostic for diabetes. Fasting is defined as no caloric intake for at least 8 hours. Fasting glucose between 100 mg/dl to 125 mg/dl is diagnostic of prediabetes. In a patient with classic symptoms of hyperglycemia or hyperglycemic crisis, a random glucose >/= 200 mg/dl is diagnostic for diabetes. In the absence of unequivocal hyperglycemia, results should be confirmed by repeat testing. The classification and Diagnosis of Diabetes Diabetes Care 2021; 46: S19-S40. Current interpretive data was last revised 2022. Calcium 9.4 8.5 - 10.3 mg/dL [facility] Blood 05/07/2025 4:23 AM CDT 05/07/2025 5:06 AM CDT us Bar Gamble MD LAB BLOOD ORDERABLES Final R esult Performing Organization Address City/[facility]/ZIP Co de Phone Number [facility] [place] [address] * Oxyhemoglobin, pulmonary artery (2025 11:18 PM CDT) Pathologist WILMAN Becerra 68.7 % Comment: Interpretive Data No reference range established. Current interpretive data was last revised 2020. Blood 2025 11:1 8 PM CDT 2025 11:29 PM CDT us Bar Gamble MD LAB BLOOD ORDERABLES Final R esult [facility] [place] [address] * (ABNORMAL) Hemoglobin total, pulmonary artery (2025 11:18 PM CDT) Hemoglobin total, PA 11.3(L) 13.0 - 17.5 g/dL Blood 2025 11:1 8 PM CDT 2025 11:29 PM CDT us Bar Gamble MD LAB BLOOD ORDERABLES Final R esult Performing Organization Address City/[facility] Co de Phone Number [facility] [place] [address] * Lactate, whole blood (2025 11:18 PM CDT) Lactate, bld 0.7 0.7 - 2.0 mmol/L Blood 2025 11:1 8 PM CDT 2025 11:29 PM CDT us Bar Gamble MD LAB BLOOD ORDERABLES Final R esult Performing Organization Address [facility] Co de Phone Number [facility] [place] [address] * Oxyhemoglobin, pulmonary artery (2025 4:44 PM CDT) Oxyhemoglobin, PA 58.1 % Comment: Interpretive Data No reference range established. Current interpretive data was last revised 2020. Blood 2025 4:44 PM CDT 2025 4:52 PM CDT us Bar Gamble MD LAB BLOOD ORDERABLES Final R esult Performing Organization Address [facility] Co de Phone Number [facility] [place] [address] * (ABNORMAL) Hemoglobin total, pulmonary artery (2025 4:44 PM CDT) Hemoglobin total, PA 12.2(L) 13.0 - 17.5 g/dL Blood 2025 4:44 PM CDT 2025 4:52 PM CDT Bar Gamble MD LAB BLOOD ORDERABLES Final R esult Performing Organization Address [facility] Co de Phone Number [facility] [place] [address] * (ABNORMAL) eGFR (2025 4:44 PM CDT) eGFR 56(L) >=60 mL/min/1. 73 m2 Comment: Interpretive Data Reference Interval Normal >/= 90 mL/min/1.73m2 Mildly decreased* 60 - 89 mL/min/1.73m2 Mildly to moderately decreased 45 - 59 mL/min/1.73m2 Moderately to severely decreased 30 - 44 mL/min/1.73m2 Severely decreased 15 - 29 mL/min/1.73m2 Kidney Failure < 15 mL/min/1.73m2 *Relative to young adult level Estimated glomerular filtration rate is determined by the 2020 CKD-EPI equation recommended by the National Kidney Foundation (A Unifying Approach to GFR Estimation: Recommendations of the NKF-ASK Task Force on Reassessing the Inclusion of Race in Diagnosing Kidney Disease, JASN 2020). The CKD-EPI equation should not be used for patients with unstable renal function and has not been validated in children and those over 70. Current interpretive data was last reviewed 2021. Blood 2025 4:44 PM CDT 2025 5:05 PM CDT us Bar Gamble MD LAB BLOOD ORDERABLES Final R esult Performing Organization Address [facility]/ZIP Co de Phone Number [facility] [place] [address] * Lactate, whole blood (2025 4:44 PM CDT) Lactate, bld 0.9 0.7 - 2.0 mmol/L Blood 2025 4:44 PM CDT 2025 4:52 PM CDT Bar Gamble MD LAB BLOOD ORDERABLES Final R esult Performing Organization Address City/[facility]/ZIP Co de Phone Number [facility] [place] [address] * Phosphorus (2025 4:44 PM CDT) Pathologist [facility] Phosphorus, pl 3.8 2.3 - 4.5 mg/dL Blood 2025 4:44 PM CDT 2025 5:05 PM CDT Bar Gamble MD LAB BLOOD ORDERABLES Final R esult Performing Organization Address [facility] Co de Phone Number [facility] [place] [address] * Magnesium (2025 4:44 PM CDT) Pathologist [facility] Magnesium 2.1 1.4 - 2.5 mg/dL Blood 2025 4:44 PM CDT 2025 5:05 PM CDT Bar Gamble MD LAB BLOOD ORDERABLES Final R esult Performing Organization Address City/[facility] Co de Phone Number [facility] [place] [address] * (ABNORMAL) Basic metabolic panel (2025 4:44 PM CDT) Pathologist [facility] Sodium 138 135 - 145 mmol/L Potassium, pl 4.0 3.3 - 4.9 mmol/L [facility] Chloride 99 97 - 110 mmol/L [facility] CO2 30 22 - 32 mmol/L [facility] Anion gap 9 2 - 15 mmol/L [facility] BUN 43(H) 6 - 25 mg/dL [facility] Creatinine 1.42(H) 0.80 - 1.30 mg/dL [facility] Glucose 136 70 - 199 mg/dL [facility] Comment: Interpretive Data Fasting glucose >/= 126 mg/dl is diagnostic for diabetes. Fasting is defined as no caloric intake for at least 8 hours. Fasting glucose between 100 mg/dl to 125 mg/dl is diagnostic of prediabetes. In a patient with classic symptoms of hyperglycemia or hyperglycemic crisis, a random glucose >/= 200 mg/dl is diagnostic for diabetes. In the absence of unequivocal hyperglycemia, results should be confirmed by repeat testing. The classification and Diagnosis of Diabetes Diabetes Care 2021; 46: S19-S40. Current interpretive data was last revised 2022. Calcium 9.1 8.5 - 10.3 mg/dL [facility] Blood 2025 4:44 PM CDT 2025 5:05 PM CDT us Bar Gamble MD LAB BLOOD ORDERABLES Final R esult [facility] [place] [address] * XR Chest 1 View (2025 11:00 AM CDT) Anatomical Region Laterality Modality Body, Chest N/A Digital Radiogra phy 2025 11:5 9 AM CDT Impressions 2025 12:30 PM CDT The current study is compared with the prior radiograph dated 2025. A [place] catheter is in place, tip overlies a branch of the right lower lobe pulmonary artery, similar to prior. Right upper extremity peripherally inserted central catheter tip projects over the superior vena cava. Trace bilateral pleural effusions, similar to prior. No confluent pulmonary consolidation. No pneumothorax. Unchanged cardiac and mediastinal silhouette. Findings regarding the [place]-Jayne position were discussed with Dr. Mitchell by Dr. Landry on 2025 at 11:57 AM via Zeo message. Dictated by: Dominic Landry MD The radiology attending physician has personally reviewed this study, and had reviewed and/or edited this written report and agrees with it. Electronically signed by: Miguel Angel Ng M.D. Narrative 2025 12:30 PM CDT EXAMINATION: 1 view chest radiograph Procedure Note Miguel [place] Ng MD - 2025 EXAMINATION: 1 view chest radiograph IMPRESSION: The current study is compared with the prior radiograph dated 2025. A [place] catheter is in place, tip overlies a branch of the right lower lobe pulmonary artery, similar to prior. Right upper extremity peripherally inserted central catheter tip projects over the superior vena cava. Trace bilateral pleural effusions, similar to prior. No confluent pulmonary consolidation. No pneumothorax. Unchanged cardiac and mediastinal silhouette. Findings regarding the [place]-Jayne position were discussed with Dr. Mitchell by Dr. Landry on 2025 at 11:57 AM via Zeo message. Dictated by: Dominic Landry MD The radiology attending physician has personally reviewed this study, and had reviewed and/or edited this written report and agrees with it. Electronically signed by: Miguel [place] Ng M.D. us Zev Cowart MD PhD IMG XR PROCEDURES Final Result * Oxyhemoglobin, pulmonary artery (2025 8:17 AM CDT) Oxyhemoglobin, PA 57.0 % Comment: Interpretive Data No reference range established. Current interpretive data was last revised 2020. Blood 2025 8:17 AM CDT 2025 8:35 AM CDT us Bar Gamble MD LAB BLOOD ORDERABLES Final R esult [facility] [place] [address] * (ABNORMAL) Hemoglobin total, pulmonary artery (2025 8:17 AM CDT) Hemoglobin total, PA 12.6(L) 13.0 - 17.5 g/dL Blood 2025 8:17 AM CDT 2025 8:35 AM CDT us Bar Gamble MD LAB [place]LOOD [place] [address] * Potassium, whole blood (2025 8:17 AM CDT) Potassium, bld 4.3 3.3 - 4.9 mmol/L Blood 2025 8:17 AM CDT 2025 8:35 AM CDT us Bar Gamble MD LAB BLOOD ORDERABLES Final R esult Performing Organization Address City/[facility]/ZIP Co de Phone Number [facility] [place] [address] * (ABNORMAL) Lactate, whole blood (2025 8:17 AM CDT) Lactate, bld 2.7(H) 0.7 - 2.0 mmol/L Blood 2025 8:17 AM CDT 2025 8:35 AM CDT us Bar Gamble MD LAB BLOOD ORDERABLES Final R esult [facility] [place] [address] * XR Chest 1 View (2025 6:46 AM CDT) Anatomical Region Laterality Modality Body, Chest N/A Computed Radiogr aphy 2025 9:07 AM CDT Impressions 2025 9:10 AM CDT Comparison to 05/05/2025. Right peripherally inserted central venous catheter tip at the superior vena cava. A [place]Jayne catheter is in place, tip overlies the right interlobar pulmonary artery. Mild bibasilar atelectasis and trace pleural effusions. No pneumothorax. The heart and mediastinal contours are stable. Dictated by: Neel Nelson MD The radiology attending physician has personally reviewed this study, and had reviewed and/or edited this written report and agrees with it. Electronically signed by: Juanito Brandt M.D. Narrative 2025 9:10 AM CDT EXAMINATION: 1 view chest radiograph Procedure Note Juanito Brandt MD - 2025 EXAMINATION: 1 view chest radiograph IMPRESSION: Comparison to 05/05/2025. Right peripherally inserted central venous catheter tip at the superior vena cava. A [place]Jay[place] catheter is in place, tip overlies the right interlobar pulmonary artery. Mild bibasilar atelectasis and trace pleural effusions. No pneumothorax. The heart and mediastinal contours are stable. Dictated by: Neel Nelson MD The radiology attending physician has personally reviewed this study, and had reviewed and/or edited this written report and agrees with it. Electronically signed by: Juanito Brandt M.D. Bar Gamble MD IMG XR PROCEDURES Final Resu lt * (ABNORMAL) aPTT (2025 4:28 AM CDT) aPTT 63(H) 28 - 38 sec Comment: Interpretive Data Heparin therapeutic range: 66.0 - 100.0 seconds. Range based on correlation with therapeutic heparin activity range of 0.3 - 0.7 Units/mL. Current interpretive data was last revised on 2023. Blood 2025 4:28 AM CDT 2025 4:55 AM CDT Narrative [facility] - 2025 5:04 AM CDT STAT PTT timing: - Draw 6 hours after heparin infusion initiation - Draw 6 hours after every dose change until 2 consecutive PTTs are therapeutic - Once 2 consecutive PTTs are therapeutic, obtain with daily labs until infusion is discontinued - - Restart every 6 hour lab draws and follow instructions accordingly if PTT is outside of therapeutic range Do not draw lab from IV line that is actively infusing heparin. Use the opposite arm. If arm with actively infusing heparin must be used, pause the infusion for at least 2 minutes, and draw specimen below the IV site. For patients with a central venous catheter (CVC), lab must be drawn peripherally (not from CVC). us Libia Suarez [employer]TE[employer]ATOR LAB BLOOD ORDERABLES Final Re sult [facility] [place] [address] * Oxyhemoglobin, pulmonary artery (2025 4:27 AM CDT) Oxyhemoglobin, PA 64.4 % Comment: Interpretive Data No reference range established. Current interpretive data was last revised 2020. Blood 2025 4:27 AM CDT 2025 4:41 AM CDT us Bar Gmable MD LAB BLOOD ORDERABLES Final R esult [facility] [place] [address] * (ABNORMAL) Hemoglobin total, pulmonary artery (2025 4:27 AM CDT) Hemoglobin total, PA 11.4(L) 13.0 - 17.5 g/dL Blood 2025 4:27 AM CDT 2025 4:41 AM CDT us Bar Gamble MD LAB BLOOD ORDERABLES Final R esult Performing Organization Address [facility] Co de Phone Number [facility] [place] [address] * (ABNORMAL) eGFR (2025 4:27 AM CDT) eGFR 56(L) >=60 mL/min/1. 73 m2 Comment: Interpretive Data Reference Interval Normal >/= 90 mL/min/1.73m2 Mildly decreased* 60 - 89 mL/min/1.73m2 Mildly to moderately decreased 45 - 59 mL/min/1.73m2 Moderately to severely decreased 30 - 44 mL/min/1.73m2 Severely decreased 15 - 29 mL/min/1.73m2 Kidney Failure < 15 mL/min/1.73m2 *Relative to young adult level Estimated glomerular filtration rate is determined by the 2020 CKD-EPI equation recommended by the National Kidney Foundation (A Unifying Approach to GFR Estimation: Recommendations of the NKF-ASK Task Force on Reassessing the Inclusion of Race in Diagnosing Kidney Disease, JASN 2020). The CKD-EPI equation should not be used for patients with unstable renal function and has not been validated in children and those over 70. Current interpretive data was last reviewed 2021. Blood 2025 4:27 AM CDT 2025 4:49 AM CDT us Bar Gamble MD LAB BLOOD ORDERABLES Final R esult Performing Organization Address City/[facility]/ZIP Co de Phone Number [facility] [place] [address] * Lactate, whole blood (2025 4:27 AM CDT) Lactate, bld 0.7 0.7 - 2.0 mmol/L Blood 2025 4:27 AM CDT 2025 4:41 AM CDT us Bar Gamble MD LAB BLOOD ORDERABLES Final R esult Performing Organization Address City/[facility]/ZIP Co de Phone Number [facility] [place] [address] * (ABNORMAL) CBC without differential (2025 4:27 AM CDT) Pathologist [facility] WBC 9.96(H) 3.80 - 9.90 K/cumm Hgb 10.8(L) 13.0 - 17.5 g/dL [facility] Hct 32.7(L) 38.9 - 50.3 % [facility] Plt 187 150 - 400 K/cumm [facility] MPV 11.5 9.1 - 12.[address] [facility] RBC 3.94(L) 4.30 - 5.80 M/cumm [facility] MCV 83.0 81.3 - 96.[address] [facility] MCH 27.4 27.1 - 33.[address] [facility] MCHC 33.0 32.3 - 35.7 g/dL [facility] RDW CV 15.4(H) 11.1 - 14.9 % [facility] RDW SD 47.0 35.7 - 48.[address] [facility] NRBC abs 0.00 0.00 - 0.01 K/cumm [facility] Blood 2025 4:27 AM CDT 2025 4:49 AM CDT us Bar Gamble MD LAB BLOOD ORDERABLES Final R esult [facility] [place] [address] * Phosphorus (2025 4:27 AM CDT) Phosphorus, pl 3.7 2.3 - 4.5 mg/dL Blood 2025 4:27 AM CDT 2025 4:49 AM CDT us Bar Gamble MD LAB BLOOD ORDERABLES Final R esult [facility] [place] [address] * Magnesium (2025 4:27 AM CDT) Magnesium 2.0 1.4 - 2.5 mg/dL Blood 2025 4:27 AM CDT 2025 4:49 AM CDT us Bar Gamble MD LAB BLOOD ORDERABLES Final R esult Performing Organization Address [facility] Co de Phone Number [facility] [place] [address] * (ABNORMAL) Hepatic function panel (2025 4:27 AM CDT) Bilirubin, total 0.6 0.1 - 1.2 mg/dL Bilirubin, direct <0.2 0.1 - 0.3 mg/dL [facility] Comment:Reviewed Protein, pl 5.9(L) 6.5 - 8.5 g/dL [facility] Albumin 3.9 3.5 - 5.0 g/dL [facility] Alk phos 247(H) 40 - 130 Units/L [facility] ALT 24 7 - 55 Units/L [facility] [facility] AST 29 10 - 50 Units/L [facility] Blood 2025 4:27 AM CDT 2025 4:49 AM CDT Bar Gamble MD LAB BLOOD ORDERABLES Final R esult Performing Organization Address City/[facility]/ZIP Co de Phone Number [facility] [place] [address] * (ABNORMAL) Basic metabolic panel (2025 4:27 AM CDT) Pathologist [facility] Sodium 135 135 - 145 mmol/L Potassium, pl 3.6 3.3 - 4.9 mmol/L [facility] Chloride 97 97 - 110 mmol/L [facility] CO2 27 22 - 32 mmol/L [facility] Anion gap 11 2 - 15 mmol/L [facility] BUN 49(H) 6 - 25 mg/dL [facility] Creatinine 1.43(H) 0.80 - 1.30 mg/dL [facility] Glucose 115 70 - 199 mg/dL [facility] Comment: Interpretive Data Fasting glucose >/= 126 mg/dl is diagnostic for diabetes. Fasting is defined as no caloric intake for at least 8 hours. Fasting glucose between 100 mg/dl to 125 mg/dl is diagnostic of prediabetes. In a patient with classic symptoms of hyperglycemia or hyperglycemic crisis, a random glucose >/= 200 mg/dl is diagnostic for diabetes. In the absence of unequivocal hyperglycemia, results should be confirmed by repeat testing. The classification and Diagnosis of Diabetes Diabetes Care 2021; 46: S19-S40. Current interpretive data was last revised 2022. Calcium 9.0 8.5 - 10.3 mg/dL [facility] Blood 2025 4:27 AM CDT 2025 4:49 AM CDT Bar Gamble MD LAB BLOOD ORDERABLES Final R esult [facility] [place] [address] * Antibody identification (05/05/2025 11:27 PM CDT) [facility] Antibody ID 1 Anti-CD38 Comment:Panreactive -CD38 on reagent RBCs reacting with anti-CD38 therapy. DTT treatment removes cell surface CD38 and allows detection of common clinically significant antibodies except those against [place] antigens. TRANSFUSION 2015;55;[id number] Blood 05/05/2025 11:2 7 PM CDT 05/05/2025 11:27 PM CDT us Libia Suarez [employer]INTEGRATOR LAB BLOOD BANK TEST ORDERABLE S Final Result Performing Organization Address [facility]/ZIP Co de Phone Number [facility] [place] [address] * Oxyhemoglobin, pulmonary artery (05/05/2025 10:09 PM CDT) Oxyhemoglobin, PA 46.3 % Comment: Interpretive Data No reference range established. Current interpretive data was last revised 2020. Blood 05/05/2025 10:0 9 PM CDT 05/05/2025 10:20 PM CDT us Bar Gamble MD LAB BLOOD ORDERABLES Final R esult Performing Organization Address City/[facility]/ZIP Co de Phone Number [facility] [place] [address] * (ABNORMAL) Hemoglobin total, pulmonary artery (05/05/2025 10:09 PM CDT) Hemoglobin total, PA 12.7(L) 13.0 - 17.5 g/dL Blood 05/05/2025 10:0 9 PM CDT 05/05/2025 10:20 PM CDT Bar Gamble MD LAB BLOOD ORDERABLES Final R esult Performing Organization Address City/[facility] Co de Phone Number [facility] [place] [address] * Lactate, whole blood (05/05/2025 10:09 PM CDT) Lactate, bld 1.8 0.7 - 2.0 mmol/L Blood 05/05/2025 10:0 9 PM CDT 05/05/2025 10:20 PM CDT Bar Gamble MD LAB BLOOD ORDERABLES Final R esult Performing Organization Address [facility] de Phone Number [facility] [place] [address] * (ABNORMAL) Type and screen (05/05/2025 10:09 PM CDT) ABO Rh O Positive Poppy, indirect Positive(A) [facility] Blood 05/05/2025 10:0 9 PM CDT 05/05/2025 10:26 PM CDT Narrative [facility] - 05/05/2025 11:27 PM CDT Has the patient had Daratumumab or Isatuximab in the past 6 months?->Unknown Libia Suarez [employer] DISINTEGRATOR LAB BLOOD BANK TEST ORDERABLE S Final Result Performing Organization Address [facility] [place] [address] * Oxyhemoglobin, pulmonary artery (05/05/2025 4:55 PM CDT) Oxyhemoglobin, PA 58.3 % Comment: Interpretive Data No reference range established. Current interpretive data was last revised 2020. Blood 05/05/2025 4:55 PM CDT 05/05/2025 5:12 PM CDT Bar Gamble MD LAB BLOOD ORDERABLES Final R esult Performing Organization Address [facility] [place] [address] * (ABNORMAL) Hemoglobin total, pulmonary artery (05/05/2025 4:55 PM CDT) Hemoglobin total, PA 12.0(L) 13.0 - 17.5 g/dL Blood 05/05/2025 4:55 PM CDT 05/05/2025 5:12 PM CDT us Bar Gamble MD LAB BLOOD ORDERABLES Final R esult Performing Organization Address [facility] Co de Phone Number DULCE MARIA [facility] [place] [address] * (ABNORMAL) eGFR (05/05/2025 4:55 PM CDT) eGFR 47(L) >=60 mL/min/1. 73 m2 Comment: Interpretive Data Reference Interval Normal >/= 90 mL/min/1.73m2 Mildly decreased* 60 - 89 mL/min/1.73m2 Mildly to moderately decreased 45 - 59 mL/min/1.73m2 Moderately to severely decreased 30 - 44 mL/min/1.73m2 Severely decreased 15 - 29 mL/min/1.73m2 Kidney Failure < 15 mL/min/1.73m2 *Relative to young adult level Estimated glomerular filtration rate is determined by the 2020 CKD-EPI equation recommended by the National Kidney Foundation (A Unifying Approach to GFR Estimation: Recommendations of the NKF-ASK Task Force on Reassessing the Inclusion of Race in Diagnosing Kidney Disease, JASN 2020). The CKD-EPI equation should not be used for patients with unstable renal function and has not been validated in children and those over 70. Current interpretive data was last reviewed 2021. Blood 05/05/2025 4:55 PM CDT 05/05/2025 5:19 PM CDT us Bar Gamble MD LAB BLOOD ORDERABLES Final R esult Performing Organization Address City/[facility]/ZIP Co de Phone Number DULCE MARIA [facility] [place] [address] * Lactate, whole blood (05/05/2025 4:55 PM CDT) Lactate, bld 0.7 0.7 - 2.0 mmol/L Blood 05/05/2025 4:55 PM CDT 05/05/2025 5:12 PM CDT Bar Gamble MD LAB BLOOD ORDERABLES Final R esult Performing Organization Address [facility] Co de Phone Number [facility] [place] [address] * Phosphorus (05/05/2025 4:55 PM CDT) Pathologist [facility] Phosphorus, pl 4.5 2.3 - 4.5 mg/dL Blood 05/05/2025 4:55 PM CDT 05/05/2025 5:19 PM CDT Bar Gamble MD LAB BLOOD ORDERABLES Final R esult Performing Organization Address [facility] Co de Phone Number [facility] [place] [address] * Magnesium (05/05/2025 4:55 PM CDT) [facility] Magnesium 2.1 1.4 - 2.5 mg/dL Blood 05/05/2025 4:55 PM CDT 05/05/2025 5:19 PM CDT Bar Gamble MD LAB BLOOD ORDERABLES Final R esult Performing Organization Address [facility] [place] [address] * (ABNORMAL) Basic metabolic panel (05/05/2025 4:55 PM CDT) [facility] Sodium 136 135 - 145 mmol/L Potassium, pl 3.9 3.3 - 4.9 mmol/L [facility] Chloride 95(L) 97 - 110 mmol/L [facility] CO2 30 22 - 32 mmol/L [facility] Anion gap 11 2 - 15 mmol/L [facility] BUN 45(H) 6 - 25 mg/dL [facility] Creatinine 1.66(H) 0.80 - 1.30 mg/dL [facility] Glucose 121 70 - 199 mg/dL [facility] Comment: Interpretive Data Fasting glucose >/= 126 mg/dl is diagnostic for diabetes. Fasting is defined as no caloric intake for at least 8 hours. Fasting glucose between 100 mg/dl to 125 mg/dl is diagnostic of prediabetes. In a patient with classic symptoms of hyperglycemia or hyperglycemic crisis, a random glucose >/= 200 mg/dl is diagnostic for diabetes. In the absence of unequivocal hyperglycemia, results should be confirmed by repeat testing. The classification and Diagnosis of Diabetes Diabetes Care 2021; 46: S19-S40. Current interpretive data was last revised 2022. Calcium 9.2 8.5 - 10.3 mg/dL [facility] Blood 05/05/2025 4:55 PM CDT 05/05/2025 5:19 PM CDT us Bar Gamble MD LAB BLOOD ORDERABLES Final R esult [facility] [place] [address] * Oxyhemoglobin, pulmonary artery (05/05/2025 11:54 AM CDT) Bekah PA 65.9 % Comment: Interpretive Data No reference range established. Current interpretive data was last revised 2020. Blood 05/05/2025 11:5 4 AM CDT 05/05/2025 12:04 PM CDT us Bar Gamble MD LAB BLOOD ORDERABLES Final R esult [facility] [place] [address] * (ABNORMAL) Hemoglobin total, pulmonary artery (05/05/2025 11:54 AM CDT) Hemoglobin total, PA 12.0(L) 13.0 - 17.5 g/dL Blood 05/05/2025 11:5 4 AM CDT 05/05/2025 12:04 PM CDT Bar Gamble MD LAB BLOOD ORDERABLES Final R esult Performing Organization Address [facility] Co de Phone Number [facility] [place] [address] * Lactate, whole blood (05/05/2025 11:54 AM CDT) Lactate, bld 1.0 0.7 - 2.0 mmol/L Blood 05/05/2025 11:5 4 AM CDT 05/05/2025 12:04 PM CDT Bar Gamble MD LAB BLOOD ORDERABLES Final R esult Performing Organization Address [facility] de Phone Number [facility] [place] [address] * XR Chest 1 View (05/05/2025 6:12 AM CDT) Anatomical Region Laterality Modality Body, Chest N/A Computed Radiogr aphy 05/05/2025 8:04 AM CDT Impressions 05/05/2025 8:04 AM CDT Comparison to 05/04/2025. Right-sided PICC with tip over the SVC. Right IJ PA catheter with tip over the right lower lobe pulmonary artery. Cardiomegaly is unchanged. Mediastinum is stable. Trace bilateral pleural effusions with minimal bibasilar partial atelectasis. No pneumothorax. Electronically signed by: Blake Montanez M.D. Narrative 05/05/2025 8:04 AM CDT EXAMINATION: 1 view chest radiograph Procedure Note Blake Montanez MD - 05/05/2025 EXAMINATION: 1 view chest radiograph IMPRESSION: Comparison to 05/04/2025. Right-sided PICC with tip over the SVC. Right IJ PA catheter with tip over the right lower lobe pulmonary artery. Cardiomegaly is unchanged. Mediastinum is stable. Trace bilateral pleural effusions with minimal bibasilar partial atelectasis. No pneumothorax. Electronically signed by: Blake Montanez M.D. us Bar Gamble MD IMG XR PROCEDURES Final Resu lt * Oxyhemoglobin, pulmonary artery (05/05/2025 5:31 AM CDT) Oxyhemoglobin, PA 60.8 % Comment: Interpretive Data No reference range established. Current interpretive data was last revised 2020. Blood 05/05/2025 5:31 AM CDT 05/05/2025 5:38 AM CDT us Zev Cowart MD PhD LAB BLOOD ORDERABLES Fi nal Result Performing Organization Address City/[facility]/ZIP Co de Phone Number [facility] [place] [address] * (ABNORMAL) Hemoglobin total, pulmonary artery (05/05/2025 5:31 AM CDT) Hemoglobin total, PA 11.9(L) 13.0 - 17.5 g/dL Blood 05/05/2025 5:31 AM CDT 05/05/2025 5:38 AM CDT Zev Cowart MD PhD LAB BLOOD ORDERABLES Fi nal Result [facility] [place] [address] * Oxyhemoglobin, pulmonary artery (05/05/2025 4:16 AM CDT) Oxyhemoglobin, PA 70.8 % Comment: Interpretive Data No reference range established. Current interpretive data was last revised 2020. Blood 05/05/2025 4:16 AM CDT 05/05/2025 4:37 AM CDT Bar Gamble MD LAB BLOOD ORDERABLES Final R esult Performing Organization Address [facility] Co de Phone Number [facility] [place] [address] * (ABNORMAL) Hemoglobin total, pulmonary artery (05/05/2025 4:16 AM CDT) Hemoglobin total, PA 11.7(L) 13.0 - 17.5 g/dL Blood 05/05/2025 4:16 AM CDT 05/05/2025 4:37 AM CDT Bar Gamble MD LAB BLOOD ORDERABLES Final R esult Performing Organization Address [facility] de Phone Number [facility] [place] [address] * (ABNORMAL) eGFR (05/05/2025 4:16 AM CDT) eGFR 51(L) >=60 mL/min/1. 73 m2 Comment: Interpretive Data Reference Interval Normal >/= 90 mL/min/1.73m2 Mildly decreased* 60 - 89 mL/min/1.73m2 Mildly to moderately decreased 45 - 59 mL/min/1.73m2 Moderately to severely decreased 30 - 44 mL/min/1.73m2 Severely decreased 15 - 29 mL/min/1.73m2 Kidney Failure < 15 mL/min/1.73m2 *Relative to young adult level Estimated glomerular filtration rate is determined by the 2020 CKD-EPI equation recommended by the National Kidney Foundation (A Unifying Approach to GFR Estimation: Recommendations of the NKF-ASK Task Force on Reassessing the Inclusion of Race in Diagnosing Kidney Disease, JASN 202). The CKD-EPI equation should not be used for patients with unstable renal function and has not been validated in children and those over 70. Current interpretive data was last reviewed 2021. Blood 05/05/2025 4:16 AM CDT 05/05/2025 4:31 AM CDT Bar Gamble MD LAB BLOOD ORDERABLES Final R esult Performing Organization Address City/[facility] Co de Phone Number [facility] [place] [address] * Lactate, whole blood (05/05/2025 4:16 AM CDT) Lactate, bld 0.7 0.7 - 2.0 mmol/L Blood 05/05/2025 4:16 AM CDT 05/05/2025 4:37 AM CDT Bar Gamble MD LAB BLOOD ORDERABLES Final R esult Performing Organization Address [facility] de Phone Number [facility] [place] [address] * (ABNORMAL) aPTT (05/05/2025 4:16 AM CDT) aPTT 62(H) 28 - 38 sec Comment: Interpretive Data Heparin therapeutic range: 66.0 - 100.0 seconds. Range based on correlation with therapeutic heparin activity range of 0.3 - 0.7 Units/mL. Current interpretive data was last revised on 2023. Blood 05/05/2025 4:16 AM CDT 05/05/2025 4:25 AM CDT Narrative [facility] - 05/05/2025 4:48 AM CDT STAT PTT timing: - Draw 6 hours after heparin infusion initiation - Draw 6 hours after every dose change until 2 consecutive PTTs are therapeutic - Once 2 consecutive PTTs are therapeutic, obtain with daily labs until infusion is discontinued - - Restart every 6 hour lab draws and follow instructions accordingly if PTT is outside of therapeutic range Do not draw lab from IV line that is actively infusing heparin. Use the opposite arm. If arm with actively infusing heparin must be used, pause the infusion for at least 2 minutes, and draw specimen below the IV site. For patients with a central venous catheter (CVC), lab must be drawn peripherally (not from CVC). Libia Suarez SWE[employer] DISINTEGRATOR LAB BLOOD ORDERABLES Final Re sult Performing Organization Address City/[facility]/ZIP Co de Phone Number [facility] [place] [address] * (ABNORMAL) CBC without differential (05/05/2025 4:16 AM CDT) [facility] WBC 8.92 3.80 - 9.90 K/cumm Hgb 11.7(L) 13.0 - 17.5 g/dL [facility] Hct 35.5(L) 38.9 - 50.3 % [facility] Plt 202 150 - 400 K/cumm [facility] MPV 11.6 9.1 - 12.[address] [facility] RBC 4.28(L) 4.30 - 5.80 M/cumm [facility] MCV 82.9 81.3 - 96.[address] [facility] MCH 27.3 27.1 - 33.[address] [facility] MCHC 33.0 32.3 - 35.7 g/dL [facility] RDW CV 15.5(H) 11.1 - 14.9 % [facility] RDW SD 47.5 35.7 - 48.[address] [facility] NRBC abs 0.00 0.00 - 0.01 K/cumm [facility] Blood 05/05/2025 4:16 AM CDT 05/05/2025 4:31 AM CDT us Bar Gamble MD LAB BLOOD ORDERABLES Final R esult Performing Organization Address City/[facility]/ZIP Co de Phone Number [facility] [place] [address] * Phosphorus (05/05/2025 4:16 AM CDT) Pathologist [facility] Phosphorus, pl 3.5 2.3 - 4.5 mg/dL Blood 05/05/2025 4:16 AM CDT 05/05/2025 4:31 AM CDT Result [facility] Bar Gamble MD LAB BLOOD ORDERABLES Final R esult Performing Organization Address [facility] Co de Phone Number [facility] [place] [address] * Magnesium (05/05/2025 4:16 AM CDT) Pathologist [facility] Magnesium 2.1 1.4 - 2.5 mg/dL Blood 05/05/2025 4:16 AM CDT 05/05/2025 4:31 AM CDT Result [facility] Bar Gamble MD LAB BLOOD ORDERABLES Final R esult Performing Organization Address [facility] de Phone Number [facility] [place] [address] * (ABNORMAL) Hepatic function panel (05/05/2025 4:16 AM CDT) [facility] Bilirubin, total 0.7 0.1 - 1.2 mg/dL Bilirubin, direct 0.3 0.1 - 0.3 mg/dL [facility] Protein, pl 6.4(L) 6.5 - 8.5 g/dL [facility] Albumin 3.9 3.5 - 5.0 g/dL [facility] Alk phos 252(H) 40 - 130 Units/L [facility] ALT 28 7 - 55 Units/L [facility] AST 27 10 - 50 Units/L [facility] Blood 05/05/2025 4:16 AM CDT 05/05/2025 4:31 AM CDT Result [facility] Bar Gamble MD LAB BLOOD ORDERABLES Final R esult DULCE MARIA [facility] [place] [address] * (ABNORMAL) Basic metabolic panel (05/05/2025 4:16 AM CDT) Sodium 136 135 - 145 mmol/L Potassium, pl 4.3 3.3 - 4.9 mmol/L [facility] Chloride 95(L) 97 - 110 mmol/L [facility] CO2 30 22 - 32 mmol/L [facility] Anion gap 11 2 - 15 mmol/L [facility] BUN 45(H) 6 - 25 mg/dL [facility] Creatinine 1.55(H) 0.80 - 1.30 mg/dL [facility] Glucose 129 70 - 199 mg/dL [facility] Comment: Interpretive Data Fasting glucose >/= 126 mg/dl is diagnostic for diabetes. Fasting is defined as no caloric intake for at least 8 hours. Fasting glucose between 100 mg/dl to 125 mg/dl is diagnostic of prediabetes. In a patient with classic symptoms of hyperglycemia or hyperglycemic crisis, a random glucose >/= 200 mg/dl is diagnostic for diabetes. In the absence of unequivocal hyperglycemia, results should be confirmed by repeat testing. The classification and Diagnosis of Diabetes Diabetes Care 202; 46: S19-S40. Current interpretive data was last revised 2022. Calcium 9.8 8.5 - 10.3 mg/dL [facility] Blood 05/05/2025 4:16 AM CDT 05/05/2025 4:31 AM CDT us Bar Gamble MD LAB BLOOD ORDERABLES Final R esult DULCE MARIA [facility] [place] [address] * Oxyhemoglobin, pulmonary artery (05/04/2025 10:07 PM CDT) Oxyhemoglobin, PA 59.6 % Comment: Interpretive Data No reference range established. Current interpretive data was last revised 2020. Blood 05/04/2025 10:0 7 PM CDT 05/04/2025 10:16 PM CDT us Bar Gamble MD LAB BLOOD ORDERABLES Final R esult Performing Organization Address [facility] Co de Phone Number [facility] [place] [address] * (ABNORMAL) Hemoglobin total, pulmonary artery (05/04/2025 10:07 PM CDT) Hemoglobin total, PA 12.1(L) 13.0 - 17.5 g/dL Blood 05/04/2025 10:0 7 PM CDT 05/04/2025 10:16 PM CDT Bar Gamble MD LAB BLOOD ORDERABLES Final R esult Performing Organization Address [facility] Co de Phone Number [facility] [place] [address] * Potassium, whole blood (05/04/2025 10:07 PM CDT) Potassium, bld 3.7 3.3 - 4.9 mmol/L Blood 05/04/2025 10:0 7 PM CDT 05/04/2025 10:16 PM CDT Bar Gamble MD LAB BLOOD ORDERABLES Final R esult Performing Organization Address [facility] Co de Phone Number [facility] [place] [address] * Lactate, whole blood (05/04/2025 10:07 PM CDT) Lactate, bld 0.9 0.7 - 2.0 mmol/L Blood 05/04/2025 10:0 7 PM CDT 05/04/2025 10:16 PM CDT Bar Gamble MD LAB BLOOD ORDERABLES Final R esult Performing Organization Address [facility] Co de Phone Number [facility] [place] [address] * Oxyhemoglobin, pulmonary artery (05/04/2025 5:28 PM CDT) Oxyhemoglobin, PA 59.5 % Comment: Interpretive Data No reference range established. Current interpretive data was last revised 2020. Blood 05/04/2025 5:28 PM CDT 05/04/2025 5:40 PM CDT us Bar Gamble MD LAB BLOOD ORDERABLES Final R esult Performing Organization Address [facility] de Phone Number [facility] [place] [address] * (ABNORMAL) Hemoglobin total, pulmonary artery (05/04/2025 5:28 PM CDT) Pathologist [facility] Hemoglobin total, PA 12.2(L) 13.0 - 17.5 g/dL Blood 05/04/2025 5:28 PM CDT 05/04/2025 5:40 PM CDT Bar Gamble MD LAB BLOOD ORDERABLES Final R esult Performing Organization Address [facility] Co de Phone Number [facility] [place] [address] * (ABNORMAL) eGFR (05/04/2025 5:28 PM CDT) Pathologist [facility] eGFR 49(L) >=60 mL/min/1. 73 m2 Comment: Interpretive Data Reference Interval Normal >/= 90 mL/min/1.73m2 Mildly decreased* 60 - 89 mL/min/1.73m2 Mildly to moderately decreased 45 - 59 mL/min/1.73m2 Moderately to severely decreased 30 - 44 mL/min/1.73m2 Severely decreased 15 - 29 mL/min/1.73m2 Kidney Failure < 15 mL/min/1.73m2 *Relative to young adult level Estimated glomerular filtration rate is determined by the 2020 CKD-EPI equation recommended by the National Kidney Foundation (A Unifying Approach to GFR Estimation: Recommendations of the NKF-ASK Task Force on Reassessing the Inclusion of Race in Diagnosing Kidney Disease, JASN 2020). The CKD-EPI equation should not be used for patients with unstable renal function and has not been validated in children and those over 70. Current interpretive data was last reviewed 2021. Blood 05/04/2025 5:2 8 PM CDT 05/04/2025 5:47 PM CDT Bar Gamble MD LAB BLOOD ORDERABLES Final R esult Performing Organization Address City/[facility] Co de Phone Number [facility] [place] [address] * Lactate, whole blood (05/04/2025 5:28 PM CDT) Lactate, bld 0.7 0.7 - 2.0 mmol/L Blood 05/04/2025 5:28 PM CDT 05/04/2025 5:40 PM CDT Bar Gamble MD LAB BLOOD ORDERABLES Final R esult Performing Organization Address City/[facility]/[place] [facility] Co de Phone Number [facility] [place] [address] * Phosphorus (05/04/2025 5:28 PM CDT) Phosphorus, pl 4.1 2.3 - 4.5 mg/dL Blood 05/04/2025 5:28 PM CDT 05/04/2025 5:47 PM CDT Bar Gamble MD LAB BLOOD ORDERABLES Final R esult [facility] [place] [address] * Magnesium (05/04/2025 5:28 PM CDT) [facility] Magnesium 2.0 1.4 - 2.5 mg/dL Blood 05/04/2025 5:28 PM CDT 05/04/2025 5:47 PM CDT Bar Gamble MD LAB BLOOD ORDERABLES Final R ult Performing Organization Address [facility] Co de Phone Number [facility] [place] [address] * (ABNORMAL) Basic metabolic panel (05/04/2025 5:28 PM CDT) [facility] Sodium 133(L) 135 - 145 mmol/L Potassium, pl 4.3 3.3 - 4.9 mmol/L [facility] Chloride 93(L) 97 - 110 mmol/L [facility] CO2 28 22 - 32 mmol/L [facility] Anion gap 12 2 - 15 mmol/L [facility] BUN 44(H) 6 - 25 mg/dL [facility] Creatinine 1.59(H) 0.80 - 1.30 mg/dL [facility] Glucose 157 70 - 199 mg/dL [facility] Comment: Interpretive Data Fasting glucose >/= 126 mg/dl is diagnostic for diabetes. Fasting is defined as no caloric intake for at least 8 hours. Fasting glucose between 100 mg/dl to 125 mg/dl is diagnostic of prediabetes. In a patient with classic symptoms of hyperglycemia or hyperglycemic crisis, a random glucose >/= 200 mg/dl is diagnostic for diabetes. In the absence of unequivocal hyperglycemia, results should be confirmed by repeat testing. The classification and Diagnosis of Diabetes Diabetes Care 2021; 46: S19-S40. Current interpretive data was last revised 2022. Calcium 9.6 8.5 - 10.3 mg/dL [facility] Blood 05/04/2025 5:28 PM CDT 05/04/2025 5:47 PM CDT us Bar Gamble MD LAB BLOOD ORDERABLES Final R esult Performing Organization Address [facility] Co de Phone Number [facility] [place] [address] * POC Blood Gas and Chemistries, Arterial - (05/04/2025 2:52 PM CDT) K POC 3.9 3.3 - 4.9 mmol/L Comment: Interpretive Data Not all point of care methods assess for hemolysis. Confirm with instrument and retest K+ if not consistent with clinical signs and symptoms. Current Interpretive Data was last revised on 2024. Blood 05/04/2025 2:52 PM CDT 05/04/2025 2:52 PM CDT us Zev Cowart MD PhD LAB POCT ORDERABLES - D EVICE Final Result Performing Organization Address [facility] Co de Phone Number [facility] [place] [address] * Oxyhemoglobin, pulmonary artery (05/04/2025 11:53 AM CDT) Oxyhemoglobin, PA 60.9 % Comment: Interpretive Data No reference range established. Current interpretive data was last revised 2020. Blood 05/04/2025 11:5 3 AM CDT 05/04/2025 12:06 PM CDT us Bar Gamble MD LAB BLOOD ORDERABLES Final R esult Performing Organization Address City/[facility] Co de Phone Number [facility] [place] [address] * (ABNORMAL) Hemoglobin total, pulmonary artery (05/04/2025 11:53 AM CDT) Hemoglobin total, PA 12.4(L) 13.0 - 17.5 g/dL Blood 05/04/2025 11:5 3 AM CDT 05/04/2025 12:06 PM CDT us Bar Gamble MD LAB BLOOD ORDERABLES Final R esult Performing Organization Address [facility] Co de Phone Number [facility] [place] [address] * Lactate, whole blood (05/04/2025 11:53 AM CDT) Pathologist [facility] Lactate, bld 1.2 0.7 - 2.0 mmol/L Blood 05/04/2025 11:5 3 AM CDT 05/04/2025 12:06 PM CDT us Bar Gamble MD LAB BLOOD ORDERABLES Final R esult Performing Organization Address [facility] de Phone Number [facility] [place] [address] * XR Chest 1 View (05/04/2025 5:55 AM CDT) Anatomical Region Laterality Modality Body, Chest N/A Computed Radiogr aphy 05/04/2025 7:29 AM CDT Impressions 05/04/2025 12:00 PM CDT Comparison with 05/03/2025. Interval advancement of right internal jugular [place]-Jayne catheter into a right lower lobe segmental pulmonary artery. Retraction is recommended. Right peripherally inserted central venous catheter at the superior cavoatrial junction. Unchanged small bilateral pleural effusions with associated atelectasis. No pneumothorax. Stable cardiomediastinal silhouette. Dictated by: Magali Cotton MD The radiology attending physician has personally reviewed this study, and had reviewed and/or edited this written report and agrees with it. Electronically signed by: Toño Rawls M.D. Narrative 05/04/2025 12:00 PM CDT EXAMINATION: 1 view chest radiograph Procedure Note Toño Rawls MD - 05/04/2025 EXAMINATION: 1 view chest radiograph IMPRESSION: Comparison with 05/03/2025. Interval advancement of right internal jugular [place]Jayne catheter into a right lower lobe segmental pulmonary artery. Retraction is recommended. Right peripherally inserted central venous catheter at the superior cavoatrial junction. Unchanged small bilateral pleural effusions with associated atelectasis. No pneumothorax. Stable cardiomediastinal silhouette. Dictated by: Magali Cotton MD The radiology attending physician has personally reviewed this study, and had reviewed and/or edited this written report and agrees with it. Electronically signed by: Toño Rawls M.D. us Bar Gamble MD IMG XR PROCEDURES Final Resu lt * Oxyhemoglobin, pulmonary artery (05/04/2025 5:39 AM CDT) Oxyhemoglobin, PA 65.8 % Comment: Interpretive Data No reference range established. Current interpretive data was last revised 2020. Blood 05/04/2025 5:39 AM CDT 05/04/2025 5:49 AM CDT us Bar Gamble MD LAB BLOOD ORDERABLES Final R esult [facility] [place] [address] * (ABNORMAL) Hemoglobin total, pulmonary artery (05/04/2025 5:39 AM CDT) Hemoglobin total, PA 11.5(L) 13.0 - 17.5 g/dL Blood 05/04/2025 5:39 AM CDT 05/04/2025 5:49 AM CDT us Bar Gamble MD LAB BLOOD ORDERABLES Final R esult [facility] [place] [address] * Potassium, whole blood (05/04/2025 5:39 AM CDT) Potassium, bld 3.8 3.3 - 4.9 mmol/L Blood 05/04/2025 5:39 AM CDT 05/04/2025 5:49 AM CDT Bar Gamble MD LAB BLOOD ORDERABLES Final R esult Performing Organization Address [facility] Co de Phone Number DULCE MARIA [facility] [place] [address] * (ABNORMAL) eGFR (05/04/2025 5:39 AM CDT) eGFR 58(L) >=60 mL/min/1. 73 m2 Comment: Interpretive Data Reference Interval Normal >/= 90 mL/min/1.73m2 Mildly decreased* 60 - 89 mL/min/1.73m2 Mildly to moderately decreased 45 - 59 mL/min/1.73m2 Moderately to severely decreased 30 - 44 mL/min/1.73m2 Severely decreased 15 - 29 mL/min/1.73m2 Kidney Failure < 15 mL/min/1.73m2 *Relative to young adult level Estimated glomerular filtration rate is determined by the 2020 CKD-EPI equation recommended by the National Kidney Foundation (A Unifying Approach to GFR Estimation: Recommendations of the NKF-ASK Task Force on Reassessing the Inclusion of Race in Diagnosing Kidney Disease, JASN 2020). The CKD-EPI equation should not be used for patients with unstable renal function and has not been validated in children and those over 70. Current interpretive data was last reviewed 2021. Blood 05/04/2025 5:39 AM CDT 05/04/2025 5:52 AM CDT us Bar Gamble MD LAB BLOOD ORDERABLES Final R esult Performing Organization Address City/[facility]/ZIP Co de Phone Number [facility] [place] [address] * Lactate, whole blood (05/04/2025 5:39 AM CDT) Pathologist [facility] Lactate, bld 0.7 0.7 - 2.0 mmol/L Blood 05/04/2025 5:39 AM CDT 05/04/2025 5:49 AM CDT us Bar Gamble MD LAB BLOOD ORDERABLES Final R [facility] Performing Organization Address [facility] Co de Phone Number [facility] [place] [address] * (ABNORMAL) aPTT (05/04/2025 5:39 AM CDT) [facility] aPTT 59(H) 28 - 38 sec Comment: Interpretive Data Heparin therapeutic range: 66.0 - 100.0 seconds. Range based on correlation with therapeutic heparin activity range of 0.3 - 0.7 Units/mL. Current interpretive data was last revised on 2023. Blood 05/04/2025 5:39 AM CDT 05/04/2025 5:59 AM CDT Narrative DULCE MARIA [facility] - 05/04/2025 6:09 AM CDT STAT PTT timing: - Draw 6 hours after heparin infusion initiation - Draw 6 hours after every dose change until 2 consecutive PTTs are therapeutic - Once 2 consecutive PTTs are therapeutic, obtain with daily labs until infusion is discontinued - - Restart every 6 hour lab draws and follow instructions accordingly if PTT is outside of therapeutic range Do not draw lab from IV line that is actively infusing heparin. Use the opposite arm. If arm with actively infusing heparin must be used, pause the infusion for at least 2 minutes, and draw specimen below the IV site. For patients with a central venous catheter (CVC), lab must be drawn peripherally (not from CVC). us Libia Suarez [employer] LAB BLOOD ORDERABLES Final Re sult Performing Organization Address [facility] Co de Phone Number [facility] [place] [address] * (ABNORMAL) CBC without differential (05/04/2025 5:39 AM CDT) [facility] WBC 8.60 3.80 - 9.90 K/cumm Hgb 11.3(L) 13.0 - 17.5 g/dL [facility] Hct 33.8(L) 38.9 - 50.3 % [facility] Plt 200 150 - 400 K/cumm [facility] MPV 11.7 9.1 - 12.[address] [facility] RBC 4.09(L) 4.30 - 5.80 M/cumm [facility] MCV 82.6 81.3 - 96.[address] [facility] MCH 27.6 27.1 - 33.[address] [facility] MCHC 33.4 32.3 - 35.7 g/dL [facility] RDW CV 15.6(H) 11.1 - 14.9 % [facility] RDW SD 47.2 35.7 - 48.[address] [facility] NRBC abs 0.00 0.00 - 0.01 K/cumm [facility] Blood 05/04/2025 5:39 AM CDT 05/04/2025 5:51 AM CDT Bar Gamble MD LAB BLOOD ORDERABLES Final R esult [facility] [place] [address] * Phosphorus (05/04/2025 5:39 AM CDT) Pathologist [facility] Phosphorus, pl 3.3 2.3 - 4.5 mg/dL Blood 05/04/2025 5:39 AM CDT 05/04/2025 5:52 AM CDT us Bar Gamble MD LAB BLOOD ORDERABLES Final R esult [facility] [place] [address] * Magnesium (05/04/2025 5:39 AM CDT) [facility] Magnesium 2.1 1.4 - 2.5 mg/dL Blood 05/04/2025 5:39 AM CDT 05/04/2025 5:52 AM CDT us Bar Gamble MD LAB BLOOD ORDERABLES Final R esult Performing Organization Address City/[facility]/ZIP Co de Phone Number [facility] [place] [address] * (ABNORMAL) Hepatic function panel (05/04/2025 5:39 AM CDT) [facility] Bilirubin, total 0.7 0.1 - 1.2 mg/dL Bilirubin, direct 0.3 0.1 - 0.3 mg/dL [facility] Protein, pl 6.0(L) 6.5 - 8.5 g/dL [facility] Albumin 3.8 3.5 - 5.0 g/dL [facility] Alk phos 233(H) 40 - 130 Units/L [facility] ALT 28 7 - 55 Units/L [facility] AST 29 10 - 50 Units/L [facility] Blood 05/04/2025 5:39 AM CDT 05/04/2025 5:52 AM CDT us Bar Gamble MD LAB BLOOD ORDERABLES Final R esult [facility] [place] [address] * (ABNORMAL) Basic metabolic panel (05/04/2025 5:39 AM CDT) Sodium 137 135 - 145 mmol/L Potassium, pl 4.1 3.3 - 4.9 mmol/L [facility] Chloride 98 97 - 110 mmol/L [facility] CO2 28 22 - 32 mmol/L [facility] Anion gap 11 2 - 15 mmol/L [facility] BUN 45(H) 6 - 25 mg/dL [facility] Creatinine 1.40(H) 0.80 - 1.30 mg/dL [facility] Glucose 131 70 - 199 mg/dL [facility] Comment: Interpretive Data Fasting glucose >/= 126 mg/dl is diagnostic for diabetes. Fasting is defined as no caloric intake for at least 8 hours. Fasting glucose between 100 mg/dl to 125 mg/dl is diagnostic of prediabetes. In a patient with classic symptoms of hyperglycemia or hyperglycemic crisis, a random glucose >/= 200 mg/dl is diagnostic for diabetes. In the absence of unequivocal hyperglycemia, results should be confirmed by repeat testing. The classification and Diagnosis of Diabetes Diabetes Care 2021; 46: S19-S40. Current interpretive data was last revised 2022. Calcium 9.4 8.5 - 10.3 mg/dL [facility] Blood 05/04/2025 5:39 AM CDT 05/04/2025 5:52 AM CDT us Bar Gamble MD LAB BLOOD ORDERABLES Final R [employer] Performing Organization Address [facility] Co de Phone Number [facility] [place] [address] * Oxyhemoglobin, pulmonary artery (05/03/2025 11:21 PM CDT) Pathologist [facility] Oxyhemoglobin, PA 63.7 % Comment: Interpretive Data No reference range established. Current interpretive data was last revised 2020. Blood 05/03/2025 11:2 1 PM CDT 05/03/2025 11:33 PM CDT us Bar Gamble MD LAB BLOOD ORDERABLES Final R esult [facility] [place] [address] * (ABNORMAL) Hemoglobin total, pulmonary artery (05/03/2025 11:21 PM CDT) Hemoglobin total, PA 12.1(L) 13.0 - 17.5 g/dL Blood 05/03/2025 11:2 1 PM CDT 05/03/2025 11:33 PM CDT us Bar Gamble MD LAB BLOOD ORDERABLES Final R esult Performing Organization Address [facility] de Phone Number [facility] [place] [address] * Potassium, whole blood (05/03/2025 11:21 PM CDT) Potassium, bld 3.8 3.3 - 4.9 mmol/L Blood 05/03/2025 11:2 1 PM CDT 05/03/2025 11:33 PM CDT us Bar Gamble MD LAB BLOOD ORDERABLES Final R esult Performing Organization Address [facility] Co de Phone Number [facility] [place] [address] * Lactate, whole blood (05/03/2025 11:21 PM CDT) Lactate, bld 0.7 0.7 - 2.0 mmol/L Blood 05/03/2025 11:2 1 PM CDT 05/03/2025 11:33 PM CDT us Bar Gamble MD LAB BLOOD ORDERABLES Final R esult Performing Organization Address [facility] Co de Phone Number [facility] [place] [address] * Oxyhemoglobin, pulmonary artery (05/03/2025 5:23 PM CDT) Oxyhemoglobin, PA 85.1 % Comment: Interpretive Data No reference range established. Current interpretive data was last revised 2020. Blood 05/03/2025 5:23 PM CDT 05/03/2025 5:32 PM CDT us Bar Gamble MD LAB BLOOD ORDERABLES Final R esult [facility] [place] [address] * (ABNORMAL) Hemoglobin total, pulmonary artery (05/03/2025 5:23 PM CDT) [facility] Hemoglobin total, PA 12.1(L) 13.0 - 17.5 g/dL Blood 05/03/2025 5:23 PM CDT 05/03/2025 5:32 PM CDT us Bar Gamble MD LAB BLOOD ORDERABLES Final R esult [facility] [place] [address] * (ABNORMAL) eGFR (05/03/2025 5:23 PM CDT) Pathologist [facility] eGFR 58(L) >=60 mL/min/1. 73 m2 Comment: Interpretive Data Reference Interval Normal >/= 90 mL/min/1.73m2 Mildly decreased* 60 - 89 mL/min/1.73m2 Mildly to moderately decreased 45 - 59 mL/min/1.73m2 Moderately to severely decreased 30 - 44 mL/min/1.73m2 Severely decreased 15 - 29 mL/min/1.73m2 Kidney Failure < 15 mL/min/1.73m2 *Relative to young adult level Estimated glomerular filtration rate is determined by the 2020 CKD-EPI equation recommended by the National Kidney Foundation (A Unifying Approach to GFR Estimation: Recommendations of the NKF-ASK Task Force on Reassessing the Inclusion of Race in Diagnosing Kidney Disease, JASN 2020). The CKD-EPI equation should not be used for patients with unstable renal function and has not been validated in children and those over 70. Current interpretive data was last reviewed 2021. Blood 05/03/2025 5:23 PM CDT 05/03/2025 5:36 PM CDT us Bar Gamble MD LAB BLOOD ORDERABLES Final R esult Performing Organization Address City/[facility] Co de Phone Number [facility] [place] [address] * Lactate, whole blood (05/03/2025 5:23 PM CDT) Lactate, bld 1.1 0.7 - 2.0 mmol/L Blood 05/03/2025 5:23 PM CDT 05/03/2025 5:32 PM CDT us Bar Gamble MD LAB BLOOD ORDERABLES Final R esult Performing Organization Address [facility] Co de Phone Number [facility] [place] [address] * Phosphorus (05/03/2025 5:23 PM CDT) Phosphorus, pl 3.8 2.3 - 4.5 mg/dL Blood 05/03/2025 5:23 PM CDT 05/03/2025 5:36 PM CDT us Bar Gamble MD LAB BLOOD ORDERABLES Final R esult Performing Organization Address City/[facility] Co de Phone Number [facility] [place] [address] * Magnesium (05/03/2025 5:23 PM CDT) Pathologist [facility] Magnesium 2.1 1.4 - 2.5 mg/dL Blood 05/03/2025 5:23 PM CDT 05/03/2025 5:36 PM CDT us Bar Gamble MD LAB BLOOD ORDERABLES Final R esult [facility] [place] [address] * (ABNORMAL) Basic metabolic panel (05/03/2025 5:23 PM CDT) Pathologist [facility] Sodium 138 135 - 145 mmol/L Potassium, pl 3.1(L) 3.3 - 4.9 mmol/L [facility] Chloride 97 97 - 110 mmol/L [facility] CO2 29 22 - 32 mmol/L [facility] Anion gap 12 2 - 15 mmol/L [facility] BUN 45(H) 6 - 25 mg/dL [facility] Creatinine 1.40(H) 0.80 - 1.30 mg/dL [facility] Glucose 141 70 - 199 mg/dL [facility] Comment: Interpretive Data Fasting glucose >/= 126 mg/dl is diagnostic for diabetes. Fasting is defined as no caloric intake for at least 8 hours. Fasting glucose between 100 mg/dl to 125 mg/dl is diagnostic of prediabetes. In a patient with classic symptoms of hyperglycemia or hyperglycemic crisis, a random glucose >/= 200 mg/dl is diagnostic for diabetes. In the absence of unequivocal hyperglycemia, results should be confirmed by repeat testing. The classification and Diagnosis of Diabetes Diabetes Care 2021; 46: S19-S40. Current interpretive data was last revised 2022. Calcium 9.2 8.5 - 10.3 mg/dL [facility] Blood 05/03/2025 5:23 PM CDT 05/03/2025 5:36 PM CDT us Bar Gamble MD LAB BLOOD ORDERABLES Final R esult [facility] [place] [address] * Oxyhemoglobin, pulmonary artery (05/03/2025 11:13 AM CDT) Oxyhemoglobin, PA 58.6 % Comment: Interpretive Data No reference range established. Current interpretive data was last revised 2020. Blood 05/03/2025 11:1 3 AM CDT 05/03/2025 11:25 AM CDT Bar Gamble MD LAB BLOOD ORDERABLES Final R esult Performing Organization Address [facility] [place] [address] * (ABNORMAL) Hemoglobin total, pulmonary artery (05/03/2025 11:13 AM CDT) Hemoglobin total, PA 12.7(L) 13.0 - 17.5 g/dL Blood 05/03/2025 11:1 3 AM CDT 05/03/2025 11:25 AM CDT us Bar Gamble MD LAB BLOOD ORDERABLES Final R esult Performing Organization Address [facility] Co de Phone Number [facility] [place] [address] * Lactate, whole blood (05/03/2025 11:13 AM CDT) Lactate, bld 0.7 0.7 - 2.0 mmol/L Blood 05/03/2025 11:1 3 AM CDT 05/03/2025 11:25 AM CDT us Bar Gamble MD LAB BLOOD ORDERABLES Final R esult Performing Organization Address City/[facility] Co de Phone Number [facility] [place] [address] * Infection Prevention Shady auris PCR, surveillance Axilla/Groin (05/03/2025 9:19 AM CDT) Shady auris DNA Not Detected Not Detected [facility] Comment: Interpretive Data Testing performed by [facility] using the Lucas carlos [id number] Shady auris assay. This assay detects DNA from Shady auris using Real-Time PCR. This assay is laboratory developed and is not cleared by the [employer] Food and Drug Administration. The performance characteristics have been verified by the [facility]. Axilla/Groin 05/03/2025 9:19 AM CDT 05/03/2025 11:30 AM CDT Narrative DULCE MARIA [facility] - 05/04/2025 2:12 AM CDT Order placed by [facility] due to ring surveillance. us Instant Order Generic Provider LAB MICROBIOLOGY - GENERAL ORDERABLES Final Result DULCE MARIA [facility] [place] [address] [facility] * XR Chest 1 View (05/03/2025 6:11 AM CDT) Anatomical Region Laterality Modality Body, Chest N/A Digital Radiogra phy 05/03/2025 7:14 AM CDT Impressions 05/03/2025 7:14 AM CDT 1 view chest radiograph, dated 05/02/2025 at 6:39 PM Comparison is made to prior chest radiograph dated 04/30/2025. Right peripherally inserted central venous catheter terminates in the superior cavoatrial junction. Right internal jugular [place]-Jayne catheter has been advanced and terminates in the interlobar pulmonary artery. No significant change in small bilateral pleural effusions with atelectasis. No pneumothorax. Stable heart size. 1 view chest radiograph, dated 05/03/2025 at 5:43 AM Comparison is made to above study. [place]-Jayne catheter is been slightly retracted, still terminating in the interlobar pulmonary artery. Otherwise, there is no change. Electronically signed by: Kelsey Beauchamp M.D. Narrative 05/03/2025 7:14 AM CDT EXAMINATION: 1 view chest radiograph, dated 05/02/2025 at 6:39 PM 1 view chest radiograph, dated 05/03/2025 at 5:43 AM Procedure Note Kelsey Beauchamp MD - 05/03/2025 EXAMINATION: 1 view chest radiograph, dated 05/02/2025 at 6:39 PM 1 view chest radiograph, dated 05/03/2025 at 5:43 AM IMPRESSION: 1 view chest radiograph, dated 05/02/2025 at 6:39 PM Comparison is made to prior chest radiograph dated 04/30/2025. Right peripherally inserted central venous catheter terminates in the superior cavoatrial junction. Right internal jugular [place]-Jayne catheter has been advanced and terminates in the interlobar pulmonary artery. No significant change in small bilateral pleural effusions with atelectasis. No pneumothorax. Stable heart size. 1 view chest radiograph, dated 05/03/2025 at 5:43 AM Comparison is made to above study. [place]ne catheter is been slightly retracted, still terminating in the interlobar pulmonary artery. Otherwise, there is no change. Electronically signed by: Kelsey Beauchamp M.D. us Bar Gamble MD IMG XR PROCEDURES Final Resu lt * Oxyhemoglobin, pulmonary artery (05/03/2025 4:42 AM CDT) Oxyhemoglobin, PA 68.3 % Comment: Interpretive Data No reference range established. Current interpretive data was last revised 2020. Blood 05/03/2025 4:42 AM CDT 05/03/2025 5:05 AM CDT us Bar Gamble MD LAB BLOOD ORDERABLES Final R esult [facility] [place] [address] * (ABNORMAL) Hemoglobin total, pulmonary artery (05/03/2025 4:42 AM CDT) Hemoglobin total, PA 11.9(L) 13.0 - 17.5 g/dL Blood 05/03/2025 4:42 AM CDT 05/03/2025 5:05 AM CDT us Bar Gamble MD LAB BLOOD ORDERABLES Final R esult Performing Organization Address City/[facility]/ZIP Co de Phone Number [facility] [place] [address] * (ABNORMAL) eGFR (05/03/2025 4:42 AM CDT) eGFR 58(L) >=60 mL/min/1. 73 m2 Comment: Interpretive Data Reference Interval Normal >/= 90 mL/min/1.73m2 Mildly decreased* 60 - 89 mL/min/1.73m2 Mildly to moderately decreased 45 - 59 mL/min/1.73m2 Moderately to severely decreased 30 - 44 mL/min/1.73m2 Severely decreased 15 - 29 mL/min/1.73m2 Kidney Failure < 15 mL/min/1.73m2 *Relative to young adult level Estimated glomerular filtration rate is determined by the 2020 CKD-EPI equation recommended by the National Kidney Foundation (A Unifying Approach to GFR Estimation: Recommendations of the NKF-ASK Task Force on Reassessing the Inclusion of Race in Diagnosing Kidney Disease, JASN 2020). The CKD-EPI equation should not be used for patients with unstable renal function and has not been validated in children and those over 70. Current interpretive data was last reviewed 2021. Blood 05/03/2025 4:42 AM CDT 05/03/2025 5:15 AM CDT us Bar Gamble MD LAB BLOOD ORDERABLES Final R esult [facility] [place] [address] * Lactate, whole blood (05/03/2025 4:42 AM CDT) Pathologist [facility] Lactate, bld 0.7 0.7 - 2.0 mmol/L Blood 05/03/2025 4:42 AM CDT 05/03/2025 5:05 AM CDT us Bar Gamble MD LAB BLOOD ORDERABLES Final R esult Performing Organization Address [facility] Co de Phone Number [facility] [place] [address] * (ABNORMAL) aPTT (05/03/2025 4:42 AM CDT) Pathologist [facility] aPTT 57(H) 28 - 38 sec Comment: Interpretive Data Heparin therapeutic range: 66.0 - 100.0 seconds. Range based on correlation with therapeutic heparin activity range of 0.3 - 0.7 Units/mL. Current interpretive data was last revised on 2023. Blood 05/03/2025 4:42 AM CDT 05/03/2025 5:21 AM CDT Narrative DULCE MARIA [facility] - 05/03/2025 5:30 AM CDT STAT PTT timing: - Draw 6 hours after heparin infusion initiation - Draw 6 hours after every dose change until 2 consecutive PTTs are therapeutic - Once 2 consecutive PTTs are therapeutic, obtain with daily labs until infusion is discontinued - - Restart every 6 hour lab draws and follow instructions accordingly if PTT is outside of therapeutic range Do not draw lab from IV line that is actively infusing heparin. Use the opposite arm. If arm with actively infusing heparin must be used, pause the infusion for at least 2 minutes, and draw specimen below the IV site. For patients with a central venous catheter (CVC), lab must be drawn peripherally (not from CVC). us Libia Suarez SWEET POTATO DISINTEGRATOR LAB BLOOD ORDERABLES Final Re sult Performing Organization Address [facility] Co de Phone Number [facility] [place] [address] * (ABNORMAL) CBC without differential (05/03/2025 4:42 AM CDT) WBC 8.97 3.80 - 9.90 K/cumm Hgb 11.4(L) 13.0 - 17.5 g/dL [facility] Hct 35.1(L) 38.9 - 50.3 % [facility] Plt 202 150 - 400 K/cumm [facility] MPV 11.7 9.1 - 12.[address] [facility] RBC 4.22(L) 4.30 - 5.80 M/cumm [facility] MCV 83.2 81.3 - 96.[address] [facility] MCH 27.0(L) 27.1 - 33.[address] [facility] MCHC 32.5 32.3 - 35.7 g/dL [facility] RDW CV 15.7(H) 11.1 - 14.9 % [facility] RDW SD 48.0 35.7 - 48.[address] [facility] NRBC abs 0.00 0.00 - 0.01 K/cumm [facility] Blood 05/03/2025 4:42 AM CDT 05/03/2025 5:15 AM CDT us Bar Gamble MD LAB BLOOD ORDERABLES Final R esult [facility] [place] [address] * Phosphorus (05/03/2025 4:42 AM CDT) Pathologist [facility] Phosphorus, pl 4.1 2.3 - 4.5 mg/dL Blood 05/03/2025 4:42 AM CDT 05/03/2025 5:15 AM CDT us Bar Gamble MD LAB BLOOD ORDERABLES Final R esult Performing Organization Address [facility] Co de Phone Number [facility] [place] [address] * Magnesium (05/03/2025 4:42 AM CDT) [facility] Magnesium 2.2 1.4 - 2.5 mg/dL Blood 05/03/2025 4:42 AM CDT 05/03/2025 5:15 AM CDT us Bar Gamble MD LAB BLOOD ORDERABLES Final R esult Performing Organization Address [facility] de Phone Number [facility] [place] [address] * (ABNORMAL) Hepatic function panel (05/03/2025 4:42 AM CDT) [facility] Bilirubin, total 0.6 0.1 - 1.2 mg/dL Bilirubin, direct 0.2 0.1 - 0.3 mg/dL [facility] Comment:Hemolyzed; result ma y be falsely decreased Protein, pl 6.2(L) 6.5 - 8.5 g/dL [facility] Albumin 3.8 3.5 - 5.0 g/dL [facility] Alk phos 240(H) 40 - 130 Units/L [facility] ALT 29 7 - 55 Units/L [facility] AST 40 10 - 50 Units/L [facility] Comment:Hemolyzed; result ma y be falsely elevated Blood 05/03/2025 4:42 AM CDT 05/03/2025 5:15 AM CDT Bar Gamble MD LAB BLOOD ORDERABLES Final R esult Performing Organization Address [facility] Co de Phone Number [facility] [place] [address] * (ABNORMAL) Basic metabolic panel (05/03/2025 4:42 AM CDT) Pathologist [facility] Sodium 138 135 - 145 mmol/L Potassium, pl 3.6 3.3 - 4.9 mmol/L [facility] Comment:Hemolyzed; Potassium value may be falsely elevated by as much as 0.3-0.5 mmol/L. Suggest redraw and reanalysis. Chloride 97 97 - 110 mmol/L [facility] CO2 31 22 - 32 mmol/L [facility] Anion gap 10 2 - 15 mmol/L [facility] BUN 50(H) 6 - 25 mg/dL [facility] Creatinine 1.40(H) 0.80 - 1.30 mg/dL [facility] Glucose 128 70 - 199 mg/dL [facility] Comment: Interpretive Data Fasting glucose >/= 126 mg/dl is diagnostic for diabetes. Fasting is defined as no caloric intake for at least 8 hours. Fasting glucose between 100 mg/dl to 125 mg/dl is diagnostic of prediabetes. In a patient with classic symptoms of hyperglycemia or hyperglycemic crisis, a random glucose >/= 200 mg/dl is diagnostic for diabetes. In the absence of unequivocal hyperglycemia, results should be confirmed by repeat testing. The classification and Diagnosis of Diabetes Diabetes Care 202; 46: S19-S40. Current interpretive data was last revised 2022. Calcium 9.5 8.5 - 10.3 mg/dL [facility] Blood 05/03/2025 4:42 AM CDT 05/03/2025 5:15 AM CDT Bar Gamble MD LAB BLOOD ORDERABLES Final R esult [facility] [place] [address] * (ABNORMAL) aPTT (05/03/2025 12:09 AM CDT) Pathologist [facility] aPTT 58(H) 28 - 38 sec Comment: Interpretive Data Heparin therapeutic range: 66.0 - 100.0 seconds. Range based on correlation with therapeutic heparin activity range of 0.3 - 0.7 Units/mL. Current interpretive data was last revised on 2023. Blood 05/03/2025 12:0 9 AM CDT 05/03/2025 12:32 AM CDT Narrative [facility] - 05/03/2025 12:57 AM CDT STAT PTT timing: - Draw 6 hours after heparin infusion initiation - Draw 6 hours after every dose change until 2 consecutive PTTs are therapeutic - Once 2 consecutive PTTs are therapeutic, obtain with daily labs until infusion is discontinued - - Restart every 6 hour lab draws and follow instructions accordingly if PTT is outside of therapeutic range Do not draw lab from IV line that is actively infusing heparin. Use the opposite arm. If arm with actively infusing heparin must be used, pause the infusion for at least 2 minutes, and draw specimen below the IV site. For patients with a central venous catheter (CVC), lab must be drawn peripherally (not from CVC). Libia Suarez SWEET POTATO DISINTEGRATOR LAB BLOOD ORDERABLES Final Re sult Performing Organization Address City/[facility]/ZIP Co de Phone Number [facility] [place] [address] * Magnesium (05/02/2025 10:07 PM CDT) Magnesium 2.4 1.4 - 2.5 mg/dL Blood 05/02/2025 10:0 7 PM CDT 05/02/2025 10:17 PM CDT Bar Gamble MD LAB BLOOD ORDERABLES Final R esult [facility] [place] [address] * Potassium, whole blood (05/02/2025 10:03 PM CDT) Potassium, bld 4.4 3.3 - 4.9 mmol/L Blood 05/02/2025 10:0 3 PM CDT 05/02/2025 10:13 PM CDT us Bar Gamble MD LAB BLOOD ORDERABLES Final R esult Performing Organization Address [facility]/ZIP Co de Phone Number DULCE MARIA ARANDA [facility] [place] [address] * (ABNORMAL) aPTT (05/02/2025 10:03 PM CDT) aPTT 56(H) 28 - 38 sec Comment: Interpretive Data Heparin therapeutic range: 66.0 - 100.0 seconds. Range based on correlation with therapeutic heparin activity range of 0.3 - 0.7 Units/mL. Current interpretive data was last revised on 2023. Blood 05/02/2025 10:0 3 PM CDT 05/02/2025 10:20 PM CDT Narrative [facility]ELISATRACEY [facility] - 05/02/2025 10:30 PM CDT STAT PTT timing: - Draw 6 hours after heparin infusion initiation - Draw 6 hours after every dose change until 2 consecutive PTTs are therapeutic - Once 2 consecutive PTTs are therapeutic, obtain with daily labs until infusion is discontinued - - Restart every 6 hour lab draws and follow instructions accordingly if PTT is outside of therapeutic range Do not draw lab from IV line that is actively infusing heparin. Use the opposite arm. If arm with actively infusing heparin must be used, pause the infusion for at least 2 minutes, and draw specimen below the IV site. For patients with a central venous catheter (CVC), lab must be drawn peripherally (not from CVC). us Libia Suarez SWEET POTATO DISINTEGRATOR LAB BLOOD ORDERABLES Final Re sult Performing Organization Address City/[facility]/ZIP Co de Phone Number DULCE MARIA ARANDA [facility] [place] [address] * Oxyhemoglobin, pulmonary artery (05/02/2025 8:32 PM CDT) Oxyhemoglobin, PA 66.6 % Comment: Interpretive Data No reference range established. Current interpretive data was last revised 2020. Blood 05/02/2025 8:32 PM CDT 05/02/2025 8:49 PM CDT us Wang Almaraz MD LAB BLOOD ORDERABLES Final R esult Performing Organization Address City/[facility] Co de Phone Number [facility] [place] [address] * (ABNORMAL) Hemoglobin total, pulmonary artery (05/02/2025 8:32 PM CDT) Hemoglobin total, PA 12.4(L) 13.0 - 17.5 g/dL Blood 05/02/2025 8:32 PM CDT 05/02/2025 8:49 PM CDT us Bar Gamble MD LAB BLOOD ORDERABLES Final R esult Performing Organization Address [facility] Co de Phone Number [facility] [place] [address] * XR Chest 1 View (05/02/2025 7:19 PM CDT) Anatomical Region Laterality Modality Body, Chest N/A Digital Radiogra phy 05/03/2025 7:14 AM CDT Impressions 05/03/2025 7:14 AM CDT 1 view chest radiograph, dated 05/02/2025 at 6:39 PM Comparison is made to prior chest radiograph dated 04/30/2025. Right peripherally inserted central venous catheter terminates in the superior cavoatrial junction. Right internal jugular [place]ne catheter has been advanced and terminates in the interlobar pulmonary artery. No significant change in small bilateral pleural effusions with atelectasis. No pneumothorax. Stable heart size. 1 view chest radiograph, dated 05/03/2025 at 5:43 AM Comparison is made to above study. [place]ne catheter is been slightly retracted, still terminating in the interlobar pulmonary artery. Otherwise, there is no change. Electronically signed by: Kelsey Beauchamp M.D. Narrative 05/03/2025 7:14 AM CDT EXAMINATION: 1 view chest radiograph, dated 05/02/2025 at 6:39 PM 1 view chest radiograph, dated 05/03/2025 at 5:43 AM Procedure Note Kelsey Beauchamp MD - 05/03/2025 EXAMINATION: 1 view chest radiograph, dated 05/02/2025 at 6:39 PM 1 view chest radiograph, dated 05/03/2025 at 5:43 AM IMPRESSION: 1 view chest radiograph, dated 05/02/2025 at 6:39 PM Comparison is made to prior chest radiograph dated 04/30/2025. Right peripherally inserted central venous catheter terminates in the superior cavoatrial junction. Right internal jugular [place] catheter has been advanced and terminates in the interlobar pulmonary artery. No significant change in small bilateral pleural effusions with atelectasis. No pneumothorax. Stable heart size. 1 view chest radiograph, dated 05/03/2025 at 5:43 AM Comparison is made to above study. [place] catheter is been slightly retracted, still terminating in the interlobar pulmonary artery. Otherwise, there is no change. Electronically signed by: Kelsey Beauchamp M.D. us Bar Gamble MD IMG XR PROCEDURES Final Resu lt * (ABNORMAL) aPTT (05/02/2025 6:48 PM CDT) aPTT 48(H) 28 - 38 sec Comment: Interpretive Data Heparin therapeutic range: 66.0 - 100.0 seconds. Range based on correlation with therapeutic heparin activity range of 0.3 - 0.7 Units/mL. Current interpretive data was last revised on 2023. Blood 05/02/2025 6:48 PM CDT 05/02/2025 7:10 PM CDT Narrative DULCE MARIA [facility] - 05/02/2025 7:19 PM CDT STAT PTT timing: - Draw 6 hours after heparin infusion initiation - Draw 6 hours after every dose change until 2 consecutive PTTs are therapeutic - Once 2 consecutive PTTs are therapeutic, obtain with daily labs until infusion is discontinued - - Restart every 6 hour lab draws and follow instructions accordingly if PTT is outside of therapeutic range Do not draw lab from IV line that is actively infusing heparin. Use the opposite arm. If arm with actively infusing heparin must be used, pause the infusion for at least 2 minutes, and draw specimen below the IV site. For patients with a central venous catheter (CVC), lab must be drawn peripherally (not from CVC). Libia Suarez NP LAB BLOOD ORDERABLES Final Re sult Performing Organization Address [facility] de Phone Number [facility] [place] [address] * Antibody identification (05/02/2025 6:38 PM CDT) Pathologist [facility] Antibody ID 1 Anti-CD38 Comment:Panreactive -CD38 on reagent RBCs reacting with anti-CD38 therapy. DTT treatment removes cell surface CD38 and allows detection of common clinically significant antibodies except those against [place] antigens. TRANSFUSION 2015;55;[id number] Blood 05/02/2025 6:38 PM CDT 05/02/2025 6:38 PM CDT Libia Suarez NP LAB BLOOD BANK TEST ORDERABLE S Final Result Performing Organization Address [facility] Co de Phone Number [facility] [place] [address] * (ABNORMAL) Hemoglobin total, pulmonary artery (05/02/2025 4:24 PM CDT) Pathologist [facility] Hemoglobin total, PA 12.2(L) 13.0 - 17.5 g/dL Blood 05/02/2025 4:24 PM CDT 05/02/2025 4:56 PM CDT Bar Gamble MD LAB BLOOD ORDERABLES Final R esult Performing Organization Address [facility] Co de Phone Number DULCE MARIA [facility] [place] [address] * Oxyhemoglobin, pulmonary artery (05/02/2025 4:21 PM CDT) Oxyhemoglobin, PA 67.7 % Comment: Interpretive Data No reference range established. Current interpretive data was last revised 2020. Blood 05/02/2025 4:21 PM CDT 05/02/2025 4:56 PM CDT us Wang Almaraz MD LAB BLOOD ORDERABLES Final R esult DULCE MARIA [facility] [place] [address] * (ABNORMAL) eGFR (05/02/2025 4:21 PM CDT) Pathologist [facility] eGFR 55(L) >=60 mL/min/1. 73 m2 Comment: Interpretive Data Reference Interval Normal >/= 90 mL/min/1.73m2 Mildly decreased* 60 - 89 mL/min/1.73m2 Mildly to moderately decreased 45 - 59 mL/min/1.73m2 Moderately to severely decreased 30 - 44 mL/min/1.73m2 Severely decreased 15 - 29 mL/min/1.73m2 Kidney Failure < 15 mL/min/1.73m2 *Relative to young adult level Estimated glomerular filtration rate is determined by the 2020 CKD-EPI equation recommended by the National Kidney Foundation (A Unifying Approach to GFR Estimation: Recommendations of the NKF-ASK Task Force on Reassessing the Inclusion of Race in Diagnosing Kidney Disease, JASN 2020). The CKD-EPI equation should not be used for patients with unstable renal function and has not been validated in children and those over 70. Current interpretive data was last reviewed 2021. Blood 05/02/2025 4:21 PM CDT 05/02/2025 5:01 PM CDT us Bar Gamble MD LAB BLOOD ORDERABLES Final R esult DULCE MARIA ARANDA [facility] [place] [address] * Blood culture Blood (05/02/2025 4:21 PM CDT) Report Final Report: No growth Blood 05/02/2025 4:21 PM CDT 05/02/2025 5:00 PM CDT Narrative DULCE MARIA [facility] - 05/07/2025 7:01 AM CDT From a different site than #1. Collection->Peripheral 1. Blood cultures are incubated for 4 days on a continuously monitored blood culture system. The first report of a negative culture is issued within 24 hours of receipt of the specimen in the laboratory. 2. Positive culture results are reported as soon as they are detected. 3. The most important factor for detection of microbes in the setting of bloodstream infection is the volume of blood submitted for culture. Failure to collect an optimal blood volume can result in false negative blood cultures. 4. For pediatric patients, the recommended blood volume to collect follows a weight based strategy. See the electronic test catalog for collection instructions. 5. For positive blood cultures, a rapid molecular test may be performed for organism identification using the carlos ePlex blood culture identification panel for gram positive (BCID-GP) and gram negative (BCID-GN) organisms. This nucleic acid amplification test detects microbial DNA in positive blood culture broth. This assay has been cleared by the [place] Food and Drug Administration and its performance characteristics have been verified by the [facility]biology [facility]. For questions about this culture, contact the Microbiology Laboratory at [phone]. Interpretive data was last revised on 24. Bar Gamble MD LAB MICROBIOLOGY - GENERAL O RDERABLES Final Result DULCE MARIA ARANDA [facility] [place] [address] * Blood culture Blood (05/02/2025 4:21 PM CDT) Report Final Report: No growth Blood 05/02/2025 4:21 PM CDT 05/02/2025 5:00 PM CDT Narrative DULCE MARIA [facility] - 05/07/2025 7:01 AM CDT Collection->Peripheral 1. Blood cultures are incubated for 4 days on a continuously monitored blood culture system. The first report of a negative culture is issued within 24 hours of receipt of the specimen in the laboratory. 2. Positive culture results are reported as soon as they are detected. 3. The most important factor for detection of microbes in the setting of bloodstream infection is the volume of blood submitted for culture. Failure to collect an optimal blood volume can result in false negative blood cultures. 4. For pediatric patients, the recommended blood volume to collect follows a weight based strategy. See the electronic test catalog for collection instructions. 5. For positive blood cultures, a rapid molecular test may be performed for organism identification using the carlos ePlex blood culture identification panel for gram positive (BCID-GP) and gram negative (BCID-GN) organisms. This nucleic acid amplification test detects microbial DNA in positive blood culture broth. This assay has been cleared by the [place] Food and Drug Administration and its performance characteristics have been verified by the [facility] Microbiology [facility]. For questions about this culture, contact the Microbiology Laboratory at [phone]. Interpretive data was last revised on 24. Bar Gamble MD LAB MICROBIOLOGY - GENERAL O RDERABLES Final Result [facility] [place] [address] * (ABNORMAL) Type and screen (05/02/2025 4:21 PM CDT) Poppy, indirect Positive(A) ABO Rh O Positive [facility] Blood 05/02/2025 4:21 PM CDT 05/02/2025 5:00 PM CDT Narrative DULCE MARIA [facility] - 05/02/2025 6:38 PM CDT Has the patient had Daratumumab or Isatuximab in the past 6 months?->Unknown Libia Suarez SWEET POTATO DISINTEGRATOR LAB BLOOD BANK TEST ORDERABLE S Final Result Performing Organization Address [facility]/ZIP Co de Phone Number [facility] [place] [address] * Phosphorus (05/02/2025 4:21 PM CDT) [facility] Phosphorus, pl 3.3 2.3 - 4.5 mg/dL Blood 05/02/2025 4:21 PM CDT 05/02/2025 5:01 PM CDT aBr Gamble MD LAB BLOOD ORDERABLES Final R esult Performing Organization Address [facility] Co de Phone Number [facility] [place] [address] * Magnesium (05/02/2025 4:21 PM CDT) [facility] Magnesium 2.4 1.4 - 2.5 mg/dL Blood 05/02/2025 4:21 PM CDT 05/02/2025 5:01 PM CDT Bar Gamble MD LAB BLOOD ORDERABLES Final R esult Performing Organization Address [facility] Co de Phone Number [facility] [place] [address] * (ABNORMAL) Basic metabolic panel (05/02/2025 4:21 PM CDT) [facility] Sodium 138 135 - 145 mmol/L Potassium, pl 3.0(L) 3.3 - 4.9 mmol/L [facility] Chloride 95(L) 97 - 110 mmol/L [facility] CO2 30 22 - 32 mmol/L [facility] Anion gap 13 2 - 15 mmol/L [facility] BUN 47(H) 6 - 25 mg/dL [facility] Creatinine 1.45(H) 0.80 - 1.30 mg/dL [facility] Glucose 200(H) 70 - 199 mg/dL [facility] Comment: Interpretive Data Fasting glucose >/= 126 mg/dl is diagnostic for diabetes. Fasting is defined as no caloric intake for at least 8 hours. Fasting glucose between 100 mg/dl to 125 mg/dl is diagnostic of prediabetes. In a patient with classic symptoms of hyperglycemia or hyperglycemic crisis, a random glucose >/= 200 mg/dl is diagnostic for diabetes. In the absence of unequivocal hyperglycemia, results should be confirmed by repeat testing. The classification and Diagnosis of Diabetes Diabetes Care 2021; 46: S19-S40. Current interpretive data was last revised 2022. Calcium 9.4 8.5 - 10.3 mg/dL [facility] Blood 05/02/2025 4:21 PM CDT 05/02/2025 5:01 PM CDT us Bar Gamble MD LAB BLOOD ORDERABLES Final R esult [facility] [place] [address] * ECG 12 lead (05/02/2025 4:11 PM CDT) Ventricular Rate EKG/Min 105 BPM [facility] Atrial Rate 105 BPM [facility] MS-Interval (MSEC) 226 ms [facility] QRS-Interval (MSEC) 108 ms [facility] QT-Interval (MSEC) 302 ms [facility] QTc 399 ms [facility] P Peacham 66 degrees [facility] R Peacham -79 degrees [facility] T Peacham 84 degrees [facility] Diagnosis Sinus tachycardia with 1st degree A-V block with Premature atrial complexes Left axis deviation Low voltage QRS Incomplete right bundle branch block Inferior infarct (cited on or before 08-APR-2025) Cannot rule out Anterior infarct (cited on or before 01-JUL-2021) Abnormal ECG When compared with ECG of 16-APR-2025 17:55, Premature atrial complexes are now Present Confirmed by LAZARO SANDOVAL M.D ([id number]) on 05/03/2025 4:32:36 PM [facility] 05/02/2025 4:11 PM CDT 05/03/2025 4:32 PM CDT us Yaakov Lawrence MD PhD ECG ORDERABLES Fi nal Result [facility] * RIGHT HEART CATH, RIGHT HEART CATHETERIZATION CORONARY ARTERY GRAFT ANGIOGRAM (05/02/2025 1:47 PM CDT) Anatomical Region Laterality Modality X-Ray Angiograph y Narrative 05/02/2025 1:58 PM CDT Right Heart Catheterization Report Patient: Gosia Zuniga 1965 Referring: Yaakov Lawrence,* Performing: Felicitas Rodgers DO Fellow: Carmelo Jay MD Patient Clinical Profile: Gosia Zuniga is a 59 y.o. Declined male referred today for right heart catheterization. Procedure: 1) Consent was obtained 2) The patient was transported to the catheterization bay, prepped, and draped in the usual sterile fashion. 3) I provided direct [id number] monitoring of conscious sedation which was administered by an independent trained nurse using Fentanyl 12.5 mcg and Midazolam 0.5 mg. Sedation time 43 min. Local anesthesia with 1% lidocaine was used. 4) Venous access was obtained in theRight Internal Jugular vein using modified Seldinger technique and micropuncture approach. A 8 Indonesian sheath was secured into place. 5) Right heart catheterization was performed with a 7.5 Indonesian VIP Eliel Jayne catheter. The catheter was advanced sequentially to the right atrium, right ventricle, pulmonary artery, and to the pulmonary capillary wedge position with pressures measured at each station and saturations drawn from the pulmonary artery for the estimation of cardiac output. Cardiac output by thermodilution was obtained. 6) Hemostasis - At the conclusion of the case the sheath was sutured into place. 7) Complications - There were no complications. Results: Hemodynamics Noninvasive blood pressure (102/61/69) mmHg Right Heart Pressures (End-expiratory) Right atrial pressure 12 mmHg mean. Right ventricular pressure 29/13 mmHg. Pulmonary artery pressure 32/18/23 mmHg. Pulmonary capillary wedge pressure 14 mmHg at end expiration. Derived Pressures Transpulmonary gradient 9 mmHg Diastolic pressure gradient 4 mmHg Transsystemic Gradient 57 mmHg Outputs and Resistances BSA 2.01 kg/m2 Hemoglobin 12.0 g/dl Heart Rate 94 beats/min Pulmonary Arterial Saturation 56% Systemic Arterial Saturation 95% AVO2 Difference 3.63 ml/dl Cardiac Output 125 x BSA Method (estimated VO2 250.94 ml/min) = 3.94 L/min, 1.96 L/min/m2. Thermodilution = 5.50 L/min, 2.74 L/min/m2 Vascular Resistances Pulmonary Vascular Resistance 2.3 Wood Units by Zakia and 1.6 Wood units by thermodilution Systemic Vascular Resistance 14.5 Wood Units by Zakia and 10.4 Wood units by thermodilution Diagnostic Impressions: 1) Normal left heart filling pressures. 2) Elevated right heart filling pressures. 3) No pulmonary hypertension. 4) Low cardiac output on dobutamine 2.5 mcg/kg/min. Therapeutic Recommendations: The results of the right heart catheterization were discussed with the referring physician. Felicitas Rodgers DO Planning Director Division of Cardiology [facility] Libia Suarez SWEET POTATO DISINTEGRATOR CV CARDIAC CATH PROCEDURES Fi nal Result * (ABNORMAL) POCT oxyhemoglobin (05/02/2025 1:25 PM CDT) [facility] Oxyhemoglobin 56.7(L) >=65.0 % [facility] Hemoglobin 11.5(L) 13.0 - 17.5 g/dL [facility] O2 content 9.1(L) 15.0 - 22.0 Vol % [facility] Anatomic Site aPOC Pulm Artery [facility] Blood 05/02/2025 1:25 PM CDT 05/02/2025 1:25 PM CDT Vannesa Gibbs MD LAB POCT ORDERABLES - D EVICE Final Result [facility] [place] [address] * (ABNORMAL) POCT oxyhemoglobin (05/02/2025 1:24 PM CDT) [facility] Oxyhemoglobin 55.0(L) >=65.0 % [facility] Hemoglobin 11.8(L) 13.0 - 17.5 g/dL [facility] O2 content 9.0(L) 15.0 - 22.0 Vol % [facility] Anatomic Site aPOC Pulm Artery [facility] Blood 05/02/2025 1:24 PM CDT 05/02/2025 1:24 PM CDT Vannesa Gibbs MD LAB POCT ORDERABLES - D EVICE Final Result [facility] [place] [address] * Potassium, whole blood (05/02/2025 6:38 AM CDT) [facility] Potassium, bld 3.7 3.3 - 4.9 mmol/L Blood 05/02/2025 6:38 AM CDT 05/02/2025 7:30 AM CDT Dinorah Kahn NP LAB BLOOD ORDERABLES Final Result Performing Organization Address City/[facility]/ZIP Co de Phone Number [facility] [place] [address] * (ABNORMAL) aPTT (05/01/2025 9:31 PM CDT) [facility] aPTT 65(H) 28 - 38 sec Comment: Interpretive Data Heparin therapeutic range: 66.0 - 100.0 seconds. Range based on correlation with therapeutic heparin activity range of 0.3 - 0.7 Units/mL. Current interpretive data was last revised on 2023. Blood 05/01/2025 9:31 PM CDT 05/01/2025 9:49 PM CDT Narrative [facility] - 05/01/2025 10:01 PM CDT STAT PTT timing: - Draw 6 hours after heparin infusion initiation - Draw 6 hours after every dose change until 2 consecutive PTTs are therapeutic - Once 2 consecutive PTTs are therapeutic, obtain with daily labs until infusion is discontinued - - Restart every 6 hour lab draws and follow instructions accordingly if PTT is outside of therapeutic range Do not draw lab from IV line that is actively infusing heparin. Use the opposite arm. If arm with actively infusing heparin must be used, pause the infusion for at least 2 minutes, and draw specimen below the IV site. For patients with a central venous catheter (CVC), lab must be drawn peripherally (not from CVC). us Libia Suarez SWEET POTATO DISINTEGRATOR LAB BLOOD ORDERABLES Final Re sult D[facility] MARIA [facility] [place] [address] * (ABNORMAL) eGFR (05/01/2025 9:22 PM CDT) eGFR 39(L) >=60 mL/min/1. 73 m2 Comment: Interpretive Data Reference Interval Normal >/= 90 mL/min/1.73m2 Mildly decreased* 60 - 89 mL/min/1.73m2 Mildly to moderately decreased 45 - 59 mL/min/1.73m2 Moderately to severely decreased 30 - 44 mL/min/1.73m2 Severely decreased 15 - 29 mL/min/1.73m2 Kidney Failure < 15 mL/min/1.73m2 *Relative to young adult level Estimated glomerular filtration rate is determined by the 2020 CKD-EPI equation recommended by the National Kidney Foundation (A Unifying Approach to GFR Estimation: Recommendations of the NKF-ASK Task Force on Reassessing the Inclusion of Race in Diagnosing Kidney Disease, JASN 202). The CKD-EPI equation should not be used for patients with unstable renal function and has not been validated in children and those over 70. Current interpretive data was last reviewed 2021. Blood 05/01/2025 9:22 PM CDT 05/01/2025 9:52 PM CDT Dinorah Kahn SWEET POTATO DISINTEGRATOR LAB BLOOD ORDERABLES Final Result Performing Organization Address City/State/[facility] de Phone Number [facility] [place] [address] * (ABNORMAL) CBC without differential (05/01/2025 9:22 PM CDT) Pathologist [facility] WBC 12.62(H) 3.80 - 9.90 K/cumm Hgb 12.0(L) 13.0 - 17.5 g/dL [facility] Hct 37.0(L) 38.9 - 50.3 % [facility] Plt 233 150 - 400 K/cumm [facility] MPV 12.1 9.1 - 12.[address] [facility] RBC 4.44 4.30 - 5.80 M/cumm [facility] MCV 83.3 81.3 - 96.[address] [facility] MCH 27.0(L) 27.1 - 33.[address] [facility] MCHC 32.4 32.3 - 35.7 g/dL [facility] RDW CV 15.6(H) 11.1 - 14.9 % [facility] RDW SD 47.1 35.7 - 48.[address] [facility] NRBC abs 0.00 0.00 - 0.01 K/cumm [facility] Blood 05/01/2025 9:22 PM CDT 05/01/2025 9:45 PM CDT Libia Suarez NP LAB BLOOD ORDERABLES Final Re sult Performing Organization Address City/[facility] Co de Phone Number [facility] [place] [address] * Phosphorus (05/01/2025 9:22 PM CDT) Pathologist [facility] Phosphorus, pl 3.7 2.3 - 4.5 mg/dL Blood 05/01/2025 9:22 PM CDT 05/01/2025 9:40 PM CDT Lbiia D. Huchel SWEET POTATO DISINTEGRATOR LAB BLOOD ORDERABLES Final [facility] [place], [place] [id number] * Magnesium (05/01/2025 9:22 PM CDT) Pathologist [facility] Magnesium 2.1 1.4 - 2.5 mg/dL Blood 05/01/2025 9:22 PM CDT 05/01/2025 9:40 PM CDT Libia Suarez SWEET POTATO DISINTEGRATOR LAB BLOOD ORDERABLES Final Re sult Performing Organization Address [facility] Co de Phone Number [facility] [place] [address] * (ABNORMAL) Hepatic function panel (05/01/2025 9:22 PM CDT) [facility] Bilirubin, total 0.5 0.1 - 1.2 mg/dL Bilirubin, direct 0.3 0.1 - 0.3 mg/dL [facility] Protein, pl 6.6 6.5 - 8.5 g/dL [facility] Albumin 4.1 3.5 - 5.0 g/dL [facility] Alk phos 265(H) 40 - 130 Units/L [facility] ALT 20 7 - 55 Units/L [facility] AST 22 10 - 50 Units/L [facility] Blood 05/01/2025 9:22 PM CDT 05/01/2025 9:40 PM CDT Libia Suarez SWEET POTATO DISINTEGRATOR LAB BLOOD ORDERABLES Final Re sult DUL[facility] MARIA [facility] [place] [address] * (ABNORMAL) Basic metabolic panel (05/01/2025 9:22 PM CDT) Pathologist [facility] Sodium 135 135 - 145 mmol/L Potassium, pl 4.1 3.3 - 4.9 mmol/L [facility] Chloride 95(L) 97 - 110 mmol/L [facility] CO2 28 22 - 32 mmol/L [facility] Anion gap 12 2 - 15 mmol/L [facility] BUN 49(H) 6 - 25 mg/dL [facility] Creatinine 1.94(H) 0.80 - 1.30 mg/dL [facility] Glucose 189 70 - 199 mg/dL [facility] Comment: Interpretive Data Fasting glucose >/= 126 mg/dl is diagnostic for diabetes. Fasting is defined as no caloric intake for at least 8 hours. Fasting glucose between 100 mg/dl to 125 mg/dl is diagnostic of prediabetes. In a patient with classic symptoms of hyperglycemia or hyperglycemic crisis, a random glucose >/= 200 mg/dl is diagnostic for diabetes. In the absence of unequivocal hyperglycemia, results should be confirmed by repeat testing. The classification and Diagnosis of Diabetes Diabetes Care 2021; 46: S19-S40. Current interpretive data was last revised 2022. Calcium 9.8 8.5 - 10.3 mg/dL [facility] Blood 05/01/2025 9:22 PM CDT 05/01/2025 9:40 PM CDT Dinorah Kahn NP LAB BLOOD ORDERABLES Final Result Performing Organization Address City/[facility]/ZIP Co de Phone Number [facility] [place] [address] * Potassium, whole blood (05/01/2025 1:40 PM CDT) [facility] Potassium, bld 3.5 3.3 - 4.9 mmol/L Blood 05/01/2025 1:40 PM CDT 05/01/2025 1:49 PM CDT Dinorah Kahn NP LAB BLOOD ORDERABLES Final Result [facility] [place] [address] * Potassium, whole blood (05/01/2025 4:00 AM CDT) Potassium, bld 3.7 3.3 - 4.9 mmol/L Blood 05/01/2025 4:00 AM CDT 05/01/2025 4:08 AM CDT Dinorah Kahn NP LAB BLOOD ORDERABLES Final Result Performing Organization Address [facility] Co de Phone Number DUL[facility] MAR[facility] [place] [address] * (ABNORMAL) eGFR (04/30/2025 8:22 PM CDT) eGFR 45(L) >=60 mL/min/1. 73 m2 Comment: Interpretive Data Reference Interval Normal >/= 90 mL/min/1.73m2 Mildly decreased* 60 - 89 mL/min/1.73m2 Mildly to moderately decreased 45 - 59 mL/min/1.73m2 Moderately to severely decreased 30 - 44 mL/min/1.73m2 Severely decreased 15 - 29 mL/min/1.73m2 Kidney Failure < 15 mL/min/1.73m2 *Relative to young adult level Estimated glomerular filtration rate is determined by the 2020 CKD-EPI equation recommended by the National Kidney Foundation (A Unifying Approach to GFR Estimation: Recommendations of the NKF-ASK Task Force on Reassessing the Inclusion of Race in Diagnosing Kidney Disease, JASN 2020). The CKD-EPI equation should not be used for patients with unstable renal function and has not been validated in children and those over 70. Current interpretive data was last reviewed 2021. Blood 04/30/2025 8:22 PM CDT 04/30/2025 8:59 PM CDT us Dinorah Kahn NP LAB BLOOD ORDERABLES Final Result Performing Organization Address City/[facility]/ZIP Co de Phone Number [facility] [place] [address] * (ABNORMAL) aPTT (04/30/2025 8:22 PM CDT) [facility] aPTT 60(H) 28 - 38 sec Comment: Interpretive Data Heparin therapeutic range: 66.0 - 100.0 seconds. Range based on correlation with therapeutic heparin activity range of 0.3 - 0.7 Units/mL. Current interpretive data was last revised on 2023. Blood 04/30/2025 8:22 PM CDT 04/30/2025 9:08 PM CDT Narrative [facility] - 04/30/2025 9:18 PM CDT STAT PTT timing: - Draw 6 hours after heparin infusion initiation - Draw 6 hours after every dose change until 2 consecutive PTTs are therapeutic - Once 2 consecutive PTTs are therapeutic, obtain with daily labs until infusion is discontinued - - Restart every 6 hour lab draws and follow instructions accordingly if PTT is outside of therapeutic range Do not draw lab from IV line that is actively infusing heparin. Use the opposite arm. If arm with actively infusing heparin must be used, pause the infusion for at least 2 minutes, and draw specimen below the IV site. For patients with a central venous catheter (CVC), lab must be drawn peripherally (not from CVC). Libia Suarez SWEET POTATO DISINTEGRATOR LAB BLOOD ORDERABLES Final Re sult [facility] [place] [address] * (ABNORMAL) CBC without differential (04/30/2025 8:22 PM CDT) [facility] WBC 9.67 3.80 - 9.90 K/cumm Hgb 12.2(L) 13.0 - 17.5 g/dL [facility] Hct 37.4(L) 38.9 - 50.3 % [facility] Plt 207 150 - 400 K/cumm [facility] MPV 12.4(H) 9.1 - 12.[address] [facility] RBC 4.46 4.30 - 5.80 M/cumm [facility] MCV 83.9 81.3 - 96.[address] [facility] MCH 27.4 27.1 - 33.[address] [facility] MCHC 32.6 32.3 - 35.7 g/dL [facility] RDW CV 15.7(H) 11.1 - 14.9 % [facility] RDW SD 48.4(H) 35.7 - 48.[address] [facility] NRBC abs 0.00 0.00 - 0.01 K/cumm [facility] Blood 04/30/2025 8:22 PM CDT 04/30/2025 9:00 PM CDT Libia Suarez SWEET POTATO DISINTEGRATOR LAB BLOOD ORDERABLES Final Re sult Performing Organization Address [facility] Co de Phone Number [facility] [place] [address] * Phosphorus (04/30/2025 8:22 PM CDT) Phosphorus, pl 4.0 2.3 - 4.5 mg/dL Blood 04/30/2025 8:22 PM CDT 04/30/2025 8:59 PM CDT Libia Suarez SWEET POTATO DISINTEGRATOR LAB BLOOD ORDERABLES Final Re sult Performing Organization Address [facility] Co de Phone Number [facility] [place] [address] * Magnesium (04/30/2025 8:22 PM CDT) Magnesium 2.0 1.4 - 2.5 mg/dL Blood 04/30/2025 8:22 PM CDT 04/30/2025 8:59 PM CDT Libia Suarez SWEET POTATO DISINTEGRATOR LAB BLOOD ORDERABLES Final Re sult Performing Organization Address [facility] Co de Phone Number [facility] [place] [address] * (ABNORMAL) Hepatic function panel (04/30/2025 8:22 PM CDT) [facility] Bilirubin, total 0.5 0.1 - 1.2 mg/dL Bilirubin, direct 0.3 0.1 - 0.3 mg/dL [facility] Protein, pl 6.5 6.5 - 8.5 g/dL [facility] Albumin 4.1 3.5 - 5.0 g/dL [facility] Alk phos 300(H) 40 - 130 Units/L [facility] ALT 24 7 - 55 Units/L [facility] AST 27 10 - 50 Units/L [facility] Blood 04/30/2025 8:22 PM CDT 04/30/2025 8:59 PM CDT Libia Suarez SWEET POTATO DISINTEGRATOR LAB BLOOD ORDERABLES Final Re sult [facility] [place] [address] * (ABNORMAL) Basic metabolic panel (04/30/2025 8:22 PM CDT) [facility] Sodium 135 135 - 145 mmol/L Potassium, pl 4.7 3.3 - 4.9 mmol/L [facility] Chloride 97 97 - 110 mmol/L [facility] CO2 26 22 - 32 mmol/L [facility] Anion gap 12 2 - 15 mmol/L [facility] BUN 40(H) 6 - 25 mg/dL [facility] Creatinine 1.73(H) 0.80 - 1.30 mg/dL [facility] Glucose 258(H) 70 - 199 mg/dL [facility] Comment: Interpretive Data Fasting glucose >/= 126 mg/dl is diagnostic for diabetes. Fasting is defined as no caloric intake for at least 8 hours. Fasting glucose between 100 mg/dl to 125 mg/dl is diagnostic of prediabetes. In a patient with classic symptoms of hyperglycemia or hyperglycemic crisis, a random glucose >/= 200 mg/dl is diagnostic for diabetes. In the absence of unequivocal hyperglycemia, results should be confirmed by repeat testing. The classification and Diagnosis of Diabetes Diabetes Care 2021; 46: S19-S40. Current interpretive data was last revised 2022. Calcium 9.7 8.5 - 10.3 mg/dL [facility] Blood 04/30/2025 8:22 PM CDT 04/30/2025 8:59 PM CDT Dinorah Kahn NP LAB BLOOD ORDERABLES Final Result [facility] [place] [address] * Potassium, whole blood (04/30/2025 5:27 PM CDT) Pathologist [facility] Potassium, bld 4.9 3.3 - 4.9 mmol/L Blood 04/30/2025 5:27 PM CDT 04/30/2025 5:51 PM CDT Dinorah Kahn NP LAB BLOOD ORDERABLES Final Result Performing Organization Address City/[facility]/ZIP Co de Phone Number [facility] [place] [address] * Infection Prevention Shady auris PCR, surveillance Axilla/Groin (04/30/2025 9:12 AM CDT) Shady auris DNA Not Detected Not Detected [facility] Comment: Interpretive Data Testing performed by [facility] using the Lucas carlos [id number] Shady auris assay. This assay detects DNA from Shady auris using Real-Time PCR. This assay is laboratory developed and is not cleared by the [place] Food and Drug Administration. The performance characteristics have been verified by the [facility]. Axilla/Groin 04/30/2025 9:12 AM CDT 04/30/2025 9:51 AM CDT Narrative [facility] - 05/01/2025 2:26 AM CDT Order placed by [facility] due to ring surveillance. Instant Order Generic Provider LAB MICROBIOLOGY - GENERAL ORDERABLES Final Result Performing Organization Address [facility] Co de Phone Number [facility] [place] [address] [facility] * Oxyhemoglobin, pulmonary artery (04/30/2025 9:12 AM CDT) Oxyhemoglobin, PA 72.0 % Comment: Interpretive Data No reference range established. Current interpretive data was last revised 2020. Blood 04/30/2025 9:12 AM CDT 04/30/2025 9:21 AM CDT Wang Almaraz MD LAB BLOOD ORDERABLES Final R esult Performing Organization Address [facility] Co de Phone Number [facility] [place] [address] * (ABNORMAL) Hemoglobin total, pulmonary artery (04/30/2025 9:12 AM CDT) Pathologist [facility] Hemoglobin total, PA 12.6(L) 13.0 - 17.5 g/dL Blood 04/30/2025 9:12 AM CDT 04/30/2025 9:21 AM CDT Wang Almaraz MD LAB BLOOD ORDERABLES Final R esult Performing Organization Address City/[facility] Co de Phone Number [facility] [place] [address] * (ABNORMAL) eGFR (04/30/2025 9:12 AM CDT) eGFR 56(L) >=60 mL/min/1. 73 m2 Comment: Interpretive Data Reference Interval Normal >/= 90 mL/min/1.73m2 Mildly decreased* 60 - 89 mL/min/1.73m2 Mildly to moderately decreased 45 - 59 mL/min/1.73m2 Moderately to severely decreased 30 - 44 mL/min/1.73m2 Severely decreased 15 - 29 mL/min/1.73m2 Kidney Failure < 15 mL/min/1.73m2 *Relative to young adult level Estimated glomerular filtration rate is determined by the 2020 CKD-EPI equation recommended by the National Kidney Foundation (A Unifying Approach to GFR Estimation: Recommendations of the NKF-ASK Task Force on Reassessing the Inclusion of Race in Diagnosing Kidney Disease, JASN 2020). The CKD-EPI equation should not be used for patients with unstable renal function and has not been validated in children and those over 70. Current interpretive data was last reviewed 2021. Blood 04/30/2025 9:12 AM CDT 04/30/2025 9:50 AM CDT Dinorah Kahn NP LAB BLOOD ORDERABLES Final Result [facility] [place] [address] * (ABNORMAL) Basic metabolic panel (04/30/2025 9:12 AM CDT) Sodium 136 135 - 145 mmol/L Potassium, pl 3.4 3.3 - 4.9 mmol/L [facility] Chloride 99 97 - 110 mmol/L [facility] CO2 27 22 - 32 mmol/L [facility] Anion gap 10 2 - 15 mmol/L [facility] BUN 33(H) 6 - 25 mg/dL [facility] Creatinine 1.44(H) 0.80 - 1.30 mg/dL [facility] Glucose 227(H) 70 - 199 mg/dL [facility] Comment: Interpretive Data Fasting glucose >/= 126 mg/dl is diagnostic for diabetes. Fasting is defined as no caloric intake for at least 8 hours. Fasting glucose between 100 mg/dl to 125 mg/dl is diagnostic of prediabetes. In a patient with classic symptoms of hyperglycemia or hyperglycemic crisis, a random glucose >/= 200 mg/dl is diagnostic for diabetes. In the absence of unequivocal hyperglycemia, results should be confirmed by repeat testing. The classification and Diagnosis of Diabetes Diabetes Care 2021; 46: S19-S40. Current interpretive data was last revised 2022. Calcium 9.4 8.5 - 10.3 mg/dL [facility] Blood 04/30/2025 9:12 AM CDT 04/30/2025 9:50 AM CDT us Dinorah Kahn NP LAB BLOOD ORDERABLES Final Result [facility] [place] [address] * XR Chest 1 View (04/30/2025 8:50 AM CDT) Anatomical Region Laterality Modality Body, Chest N/A Computed Radiogr aphy 04/30/2025 9:49 AM CDT Impressions 04/30/2025 9:54 AM CDT The current study is compared with the prior radiograph dated 04/29/2025. A [place] catheter is in place, tip overlies the right pulmonary artery. Right peripherally inserted central venous catheter tip at the superior vena cava. Trace bilateral pleural effusions and mild bibasilar atelectasis. No pneumothorax. The heart and mediastinal contours are stable. Dictated by: Neel Nelson MD The radiology attending physician has personally reviewed this study, and had reviewed and/or edited this written report and agrees with it. Electronically signed by: Juanito Brandt M.D. Narrative 04/30/2025 9:54 AM CDT EXAMINATION: 1 view chest radiograph Procedure Note Juanito Brandt MD - 04/30/2025 EXAMINATION: 1 view chest radiograph IMPRESSION: The current study is compared with the prior radiograph dated 04/29/2025. A [place] catheter is in place, tip overlies the right pulmonary artery. Right peripherally inserted central venous catheter tip at the superior vena cava. Trace bilateral pleural effusions and mild bibasilar atelectasis. No pneumothorax. The heart and mediastinal contours are stable. Dictated by: Neel Nelson MD The radiology attending physician has personally reviewed this study, and had reviewed and/or edited this written report and agrees with it. Electronically signed by: Juanito Brandt M.D. us Dinorah Kahn NP IMG XR PROCEDURES Final Res ult * (ABNORMAL) aPTT (04/30/2025 6:01 AM CDT) aPTT 62(H) 28 - 38 sec Comment: Interpretive Data Heparin therapeutic range: 66.0 - 100.0 seconds. Range based on correlation with therapeutic heparin activity range of 0.3 - 0.7 Units/mL. Current interpretive data was last revised on 2023. Blood 04/30/2025 6:01 AM CDT 04/30/2025 6:47 AM CDT Narrative [facility] - 04/30/2025 7:09 AM CDT STAT PTT timing: - Draw 6 hours after heparin infusion initiation - Draw 6 hours after every dose change until 2 consecutive PTTs are therapeutic - Once 2 consecutive PTTs are therapeutic, obtain with daily labs until infusion is discontinued - - Restart every 6 hour lab draws and follow instructions accordingly if PTT is outside of therapeutic range Do not draw lab from IV line that is actively infusing heparin. Use the opposite arm. If arm with actively infusing heparin must be used, pause the infusion for at least 2 minutes, and draw specimen below the IV site. For patients with a central venous catheter (CVC), lab must be drawn peripherally (not from CVC). Libia Suarez NP LAB BLOOD ORDERABLES Final Re sult [facility] [place] [address] * (ABNORMAL) aPTT (04/30/2025 3:36 AM CDT) aPTT 59(H) 28 - 38 sec Comment: Interpretive Data Heparin therapeutic range: 66.0 - 100.0 seconds. Range based on correlation with therapeutic heparin activity range of 0.3 - 0.7 Units/mL. Current interpretive data was last revised on 2023. Blood 04/30/2025 3:36 AM CDT 04/30/2025 3:50 AM CDT Elmira ARANDA - 04/30/2025 4:19 AM CDT STAT PTT timing: - Draw 6 hours after heparin infusion initiation - Draw 6 hours after every dose change until 2 consecutive PTTs are therapeutic - Once 2 consecutive PTTs are therapeutic, obtain with daily labs until infusion is discontinued - - Restart every 6 hour lab draws and follow instructions accordingly if PTT is outside of therapeutic range Do not draw lab from IV line that is actively infusing heparin. Use the opposite arm. If arm with actively infusing heparin must be used, pause the infusion for at least 2 minutes, and draw specimen below the IV site. For patients with a central venous catheter (CVC), lab must be drawn peripherally (not from CVC). us Libia Suarez SWEET POTATO DISINTEGRATOR LAB BLOOD ORDERABLES Final Re sult [facility] [place] [address] * (ABNORMAL) aPTT (04/29/2025 11:45 PM CDT) aPTT 39(H) 28 - 38 sec Comment: Interpretive Data Heparin therapeutic range: 66.0 - 100.0 seconds. Range based on correlation with therapeutic heparin activity range of 0.3 - 0.7 Units/mL. Current interpretive data was last revised on 2023. Blood 04/29/2025 11:4 5 PM CDT 04/30/2025 12:40 AM CDT [place] VINCENTTRACEY ARANDA - 04/30/2025 12:52 AM CDT STAT PTT timing: - Draw 6 hours after heparin infusion initiation - Draw 6 hours after every dose change until 2 consecutive PTTs are therapeutic - Once 2 consecutive PTTs are therapeutic, obtain with daily labs until infusion is discontinued - - Restart every 6 hour lab draws and follow instructions accordingly if PTT is outside of therapeutic range Do not draw lab from IV line that is actively infusing heparin. Use the opposite arm. If arm with actively infusing heparin must be used, pause the infusion for at least 2 minutes, and draw specimen below the IV site. For patients with a central venous catheter (CVC), lab must be drawn peripherally (not from CVC). Libia Suarez NP LAB BLOOD ORDERABLES Final Re sult Performing Organization Address [facility] de Phone Number [facility] [place] [address] * Antibody identification (04/29/2025 9:31 PM CDT) Pathologist [facility] Antibody ID 1 Anti-CD38 Comment:Panreactive -CD38 on reagent RBCs reacting with anti-CD38 therapy. DTT treatment removes cell surface CD38 and allows detection of common clinically significant antibodies except those against [place] antigens. TRANSFUSION 2015;55;[id number] Blood 04/29/2025 9:31 PM CDT 04/29/2025 9:31 PM CDT Libia Suarez NP LAB BLOOD BANK TEST ORDERABLE S Final Result Performing Organization Address [facility] de Phone Number [facility] [place] [address] * Oxyhemoglobin, pulmonary artery (04/29/2025 7:58 PM CDT) Oxyhemoglobin, PA 66.9 % Comment: Interpretive Data No reference range established. Current interpretive data was last revised 2020. Blood 04/29/2025 7:58 PM CDT 04/29/2025 8:25 PM CDT Wang Almaraz MD LAB BLOOD ORDERABLES Final R esult Performing Organization Address [facility]/State/ZIP Co de Phone Number [facility] [place] [address] * (ABNORMAL) eGFR (04/29/2025 7:58 PM CDT) Pathologist [facility] eGFR 49(L) >=60 mL/min/1. 73 m2 Comment: Interpretive Data Reference Interval Normal >/= 90 mL/min/1.73m2 Mildly decreased* 60 - 89 mL/min/1.73m2 Mildly to moderately decreased 45 - 59 mL/min/1.73m2 Moderately to severely decreased 30 - 44 mL/min/1.73m2 Severely decreased 15 - 29 mL/min/1.73m2 Kidney Failure < 15 mL/min/1.73m2 *Relative to young adult level Estimated glomerular filtration rate is determined by the 2020 CKD-EPI equation recommended by the National Kidney Foundation (A Unifying Approach to GFR Estimation: Recommendations of the NKF-ASK Task Force on Reassessing the Inclusion of Race in Diagnosing Kidney Disease, JASN 2020). The CKD-EPI equation should not be used for patients with unstable renal function and has not been validated in children and those over 70. Current interpretive data was last reviewed 2021. Blood 04/29/2025 7:58 PM CDT 04/29/2025 8:27 PM CDT Dinorah Kahn NP LAB BLOOD ORDERABLES Final Result [facility] [place] [address] * (ABNORMAL) Differential, auto (04/29/2025 7:58 PM CDT) Pathologist [facility] Neutrophil abs 6.85(H) 1.50 - 6.50 K/cumm Imm gran abs 0.03 0.00 - 0.10 K/cumm [facility] Lymphocyte abs 0.79(L) 0.80 - 3.30 K/cumm [facility] Monocyte abs 0.55 0.20 - 0.80 K/cumm [facility] Eosinophil abs 0.15 0.00 - 0.50 K/cumm [facility] Basophil abs 0.04 0.00 - 0.10 K/cumm [facility] Neutrophil pct 81.4 % [facility] Comment: Interpretive Data Percent cell count reference ranges are not reported, since discordance with absolute values may lead to misinterpretation of CBC data. Current Interpretive Data was last revised on 2018. Imm gran pct 0.4 % [facility] Comment: Interpretive Data Percent cell count reference ranges are not reported, since discordance with absolute values may lead to misinterpretation of CBC data. Current Interpretive Data was last revised on 2018. Lymphocyte pct 9.4 % [facility] Comment: Interpretive Data Percent cell count reference ranges are not reported, since discordance with absolute values may lead to misinterpretation of CBC data. Current Interpretive Data was last revised on 2018. Monocyte pct 6.5 % [facility] Comment: Interpretive Data Percent cell count reference ranges are not reported, since discordance with absolute values may lead to misinterpretation of CBC data. Current Interpretive Data was last revised on 2018. Eosinophil pct 1.8 % [facility] Comment: Interpretive Data Percent cell count reference ranges are not reported, since discordance with absolute values may lead to misinterpretation of CBC data. Current Interpretive Data was last revised on 2018. Basophil pct 0.5 % [facility] Comment: Interpretive Data Percent cell count reference ranges are not reported, since discordance with absolute values may lead to misinterpretation of CBC data. Current Interpretive Data was last revised on 2018. Blood 04/29/2025 7:58 PM CDT 04/29/2025 8:30 PM CDT us Vannesa Gibbs MD LAB BLOOD ORDERABLES Fi nal Result [facility] Department [place] [address] * CBC with auto differential (04/29/2025 7:58 PM CDT) WBC See Comment 3.80 - 9.90 Comment:Credited, duplicate test. Hgb See Comment 13.0 - 17.[address] [facility] Comment:Credited, duplicate test. Hct See Comment 38.9 - 50.[address] [facility] Comment:Credited, duplicate test. Plt See Comment 150 - [address] [facility] Comment:Credited, duplicate test. RBC See Comment 4.30 - 5.[address] [facility] Comment:Credited, duplicate test. MCV See Comment 81.3 - 96.[address] [facility] Comment:Credited, duplicate test. MCH See Comment 27.1 - 33.[address] [facility] Comment:Credited, duplicate test. MCHC See Comment 32.3 - 35.[address] [facility] Comment:Credited, duplicate test. Blood 04/29/2025 7:58 PM CDT 04/29/2025 8:30 PM CDT Vannesa Gibbs MD LAB BLOOD ORDERABLES [facility] Result [facility] [place] [address] * (ABNORMAL) aPTT (04/29/2025 7:58 PM CDT) [facility] Signature aPTT 49(H) 28 - 38 sec Comment: Interpretive Data Heparin therapeutic range: 66.0 - 100.0 seconds. Range based on correlation with therapeutic heparin activity range of 0.3 - 0.7 Units/mL. Current interpretive data was last revised on 2023. Blood 04/29/2025 7:58 PM CDT 04/29/2025 8:32 PM CDT [facility]ative [facility] - 04/29/2025 8:42 PM CDT STAT PTT timing: - Draw 6 hours after heparin infusion initiation - Draw 6 hours after every dose change until 2 consecutive PTTs are therapeutic - Once 2 consecutive PTTs are therapeutic, obtain with daily labs until infusion is discontinued - - Restart every 6 hour lab draws and follow instructions accordingly if PTT is outside of therapeutic range Do not draw lab from IV line that is actively infusing heparin. Use the opposite arm. If arm with actively infusing heparin must be used, pause the infusion for at least 2 minutes, and draw specimen below the IV site. For patients with a central venous catheter (CVC), lab must be drawn peripherally (not from CVC). Libia Suarez NP LAB BLOOD ORDERABLES Final Re sult Performing Organization Address City/[facility]/ZIP Co de Phone Number [facility] [place] [address] * (ABNORMAL) CBC without differential (04/29/2025 7:58 PM CDT) [facility] WBC 8.43 3.80 - 9.90 K/cumm Hgb 12.1(L) 13.0 - 17.5 g/dL [facility] Hct 37.0(L) 38.9 - 50.3 % [facility] Plt 187 150 - 400 K/cumm [facility] MPV 11.9 9.1 - 12.[address] [facility] RBC 4.48 4.30 - 5.80 M/cumm [facility] MCV 82.6 81.3 - 96.[address] [facility] MCH 27.0(L) 27.1 - 33.[address] [facility] MCHC 32.7 32.3 - 35.7 g/dL [facility] RDW CV 15.8(H) 11.1 - 14.9 % [facility] RDW SD 48.1 35.7 - 48.[address] [facility] NRBC abs 0.00 0.00 - 0.01 K/cumm [facility] Blood 04/29/2025 7:58 PM CDT 04/29/2025 8:27 PM CDT Libia Suarez NP LAB BLOOD ORDERABLES Final Re sult Performing Organization Address City/[facility]/ZIP Co de Phone Number [facility] [place] [address] * (ABNORMAL) Type and screen (04/29/2025 7:58 PM CDT) [facility] ABO Rh O Positive Poppy, indirect Positive(A) [facility] Blood 04/29/2025 7:58 PM CDT 04/29/2025 8:29 PM CDT Narrative [facility] - 04/29/2025 9:31 PM CDT Has the patient had Daratumumab or Isatuximab in the past 6 months?->Unknown Libia Suarez NP LAB BLOOD BANK TEST ORDERABLE S Final Result Performing Organization Address City/[facility]/ZIP Co de Phone Number [facility] [place] [address] * Phosphorus (04/29/2025 7:58 PM CDT) [facility] Phosphorus, pl 3.6 2.3 - 4.5 mg/dL Blood 04/29/2025 7:58 PM CDT 04/29/2025 8:27 PM CDT Libia Suarez NP LAB BLOOD ORDERABLES Final Re sult Performing Organization Address City/[facility] Co de Phone Number [facility] [place] [address] * Magnesium (04/29/2025 7:58 PM CDT) [facility] Magnesium 2.0 1.4 - 2.5 mg/dL Blood 04/29/2025 7:58 PM CDT 04/29/2025 8:27 PM CDT Libia Suarez NP LAB BLOOD ORDERABLES Final Re sult Performing Organization Address [facility] Co de Phone Number [facility] [place] [address] * (ABNORMAL) Hepatic function panel (04/29/2025 7:58 PM CDT) [facility] Bilirubin, total 0.6 0.1 - 1.2 mg/dL Bilirubin, direct 0.3 0.1 - 0.3 mg/dL [facility] Protein, pl 6.4(L) 6.5 - 8.5 g/dL [facility] Albumin 4.0 3.5 - 5.0 g/dL [facility] Alk phos 283(H) 40 - 130 Units/L [facility] ALT 19 7 - 55 Units/L [facility] AST 20 10 - 50 Units/L [facility] Blood 04/29/2025 7:58 PM CDT 04/29/2025 8:27 PM CDT Libia Suarez SWEET POTATO DISINTEGRATOR LAB BLOOD ORDERABLES Final Re sult [facility] [place] [address] * (ABNORMAL) Basic metabolic panel (04/29/2025 7:58 PM CDT) [facility] Sodium 137 135 - 145 mmol/L Potassium, pl 3.7 3.3 - 4.9 mmol/L [facility] Chloride 99 97 - 110 mmol/L [facility] CO2 28 22 - 32 mmol/L [facility] Anion gap 10 2 - 15 mmol/L [facility] BUN 34(H) 6 - 25 mg/dL [facility] Creatinine 1.59(H) 0.80 - 1.30 mg/dL [facility] Glucose 159 70 - 199 mg/dL [facility] Comment: Interpretive Data Fasting glucose >/= 126 mg/dl is diagnostic for diabetes. Fasting is defined as no caloric intake for at least 8 hours. Fasting glucose between 100 mg/dl to 125 mg/dl is diagnostic of prediabetes. In a patient with classic symptoms of hyperglycemia or hyperglycemic crisis, a random glucose >/= 200 mg/dl is diagnostic for diabetes. In the absence of unequivocal hyperglycemia, results should be confirmed by repeat testing. The classification and Diagnosis of Diabetes Diabetes Care 202; 46: S19-S40. Current interpretive data was last revised 2022. Calcium 9.5 8.5 - 10.3 mg/dL [facility] Blood 04/29/2025 7:58 PM CDT 04/29/2025 8:27 PM CDT us Dinorah RuffChanda Kahn NP LAB BLOOD ORDERABLES Final Result [facility] [place] [address] * XR Chest 1 View (04/29/2025 10:38 AM CDT) Anatomical Region Laterality Modality Body, Chest N/A Computed Radiogr aphy 04/29/2025 11:3 6 AM CDT Impressions 04/29/2025 11:36 AM CDT The current study is compared with the prior radiograph dated 04/28/2025. Right peripherally inserted central venous catheter tip at the superior vena cava. A [place]ne catheter is in place, tip overlies the main pulmonary artery. Small bilateral pleural effusions with mild bibasilar atelectasis. No pneumothorax. Heart size is within normal limits. Dictated by: Neel Nelson MD The radiology attending physician has personally reviewed this study, and had reviewed and/or edited this written report and agrees with it. Electronically signed by: Juanito Brandt M.D. Narrative 04/29/2025 11:36 AM CDT EXAMINATION: 1 view chest radiograph Procedure Note Juanito Brandt MD - 04/29/2025 EXAMINATION: 1 view chest radiograph IMPRESSION: The current study is compared with the prior radiograph dated 04/28/2025. Right peripherally inserted central venous catheter tip at the superior vena cava. A [place] catheter is in place, tip overlies the main pulmonary artery. Small bilateral pleural effusions with mild bibasilar atelectasis. No pneumothorax. Heart size is within normal limits. Dictated by: Neel Nelson MD The radiology attending physician has personally reviewed this study, and had reviewed and/or edited this written report and agrees with it. Electronically signed by: Juanito Brandt M.D. us Dinorah Kahn SWEET POTATO DISINTEGRATOR IMG XR PROCEDURES Final Res ult * Oxyhemoglobin, pulmonary artery (04/29/2025 7:58 AM CDT) Oxyhemoglobin, PA 60.7 % Comment: Interpretive Data No reference range established. Current interpretive data was last revised 2020. Blood 04/29/2025 7:58 AM CDT 04/29/2025 8:13 AM CDT Wang Almaraz MD LAB BLOOD ORDERABLES Final R esult Performing Organization Address [facility] Co de Phone Number [facility] [place] [address] * (ABNORMAL) Hemoglobin total, pulmonary artery (04/29/2025 7:58 AM CDT) Hemoglobin total, PA 12.4(L) 13.0 - 17.5 g/dL Blood 04/29/2025 7:58 AM CDT 04/29/2025 8:13 AM CDT Wang Almaraz MD LAB BLOOD ORDERABLES Final R esult Performing Organization Address [facility] Co de Phone Number [facility] [place] [address] * (ABNORMAL) Lactate (04/29/2025 7:58 AM CDT) Lactate 0.6(L) 0.7 - 2.0 mmol/L Blood 04/29/2025 7:58 AM CDT 04/29/2025 8:18 AM CDT Libia Suarez NP LAB BLOOD ORDERABLES Final Re sult Performing Organization Address [facility] de Phone Number [facility] [place] [address] * eGFR (04/29/2025 7:58 AM CDT) eGFR 60 >=60 mL/min/1. 73 m2 Comment: Interpretive Data Reference Interval Normal >/= 90 mL/min/1.73m2 Mildly decreased* 60 - 89 mL/min/1.73m2 Mildly to moderately decreased 45 - 59 mL/min/1.73m2 Moderately to severely decreased 30 - 44 mL/min/1.73m2 Severely decreased 15 - 29 mL/min/1.73m2 Kidney Failure < 15 mL/min/1.73m2 *Relative to young adult level Estimated glomerular filtration rate is determined by the 2020 CKD-EPI equation recommended by the National Kidney Foundation (A Unifying Approach to GFR Estimation: Recommendations of the NKF-ASK Task Force on Reassessing the Inclusion of Race in Diagnosing Kidney Disease, JASN 2020). The CKD-EPI equation should not be used for patients with unstable renal function and has not been validated in children and those over 70. Current interpretive data was last reviewed 2021. Blood 04/29/2025 7:58 AM CDT 04/29/2025 8:18 AM CDT Libia Suarez NP LAB BLOOD ORDERABLES Final Re sult Performing Organization Address [facility] de Phone Number [facility] MAR[facility] [place] [address] * Magnesium (04/29/2025 7:58 AM CDT) Magnesium 2.1 1.4 - 2.5 mg/dL Blood 04/29/2025 7:58 AM CDT 04/29/2025 8:18 AM CDT Libia Suarez NP LAB BLOOD ORDERABLES Final Re sult Performing Organization Address [facility]/ZIP Co de Phone Number [facility] MARIA ARANDA [facility] [place] [address] * (ABNORMAL) Comprehensive metabolic panel (04/29/2025 7:58 AM CDT) Sodium 138 135 - 145 mmol/L Potassium, pl 4.0 3.3 - 4.9 mmol/L [facility] Chloride 101 97 - 110 mmol/L [facility] CO2 27 22 - 32 mmol/L [facility] Anion gap 10 2 - 15 mmol/L [facility] BUN 31(H) 6 - 25 mg/dL [facility] Creatinine 1.36(H) 0.80 - 1.30 mg/dL [facility] Glucose 114 70 - 199 mg/dL [facility] Comment: Interpretive Data Fasting glucose >/= 126 mg/dl is diagnostic for diabetes. Fasting is defined as no caloric intake for at least 8 hours. Fasting glucose between 100 mg/dl to 125 mg/dl is diagnostic of prediabetes. In a patient with classic symptoms of hyperglycemia or hyperglycemic crisis, a random glucose >/= 200 mg/dl is diagnostic for diabetes. In the absence of unequivocal hyperglycemia, results should be confirmed by repeat testing. The classification and Diagnosis of Diabetes Diabetes Care 202; 46: S19-S40. Current interpretive data was last revised 2022. Calcium 9.4 8.5 - 10.3 mg/dL [facility] Bilirubin, total 0.7 0.1 - 1.2 mg/dL [facility] Protein, pl 6.1(L) 6.5 - 8.5 g/dL [facility] Albumin 3.8 3.5 - 5.0 g/dL [facility] Alk phos 264(H) 40 - 130 Units/L [facility] ALT 18 7 - 55 Units/L [facility] AST 22 10 - 50 Units/L [facility] Blood 04/29/2025 7:58 AM CDT 04/29/2025 8:18 AM CDT us Libia Suarez SWEET POTATO DISINTEGRATOR LAB BLOOD ORDERABLES Final Re sult [facility] [place] [address] * Oxyhemoglobin, pulmonary artery (04/28/2025 9:58 PM CDT) Pathologist [facility] Oxyhemoglobin, PA 54.5 % Comment: Interpretive Data No reference range established. Current interpretive data was last revised 2020. Blood 04/28/2025 9:58 PM CDT 04/28/2025 10:13 PM CDT Wang Almaraz MD LAB [place]OD [place] [address] * Hemoglobin total, pulmonary artery (04/28/2025 9:58 PM CDT) [facility] Hemoglobin total, PA 13.6 13.0 - 17.5 g/dL Blood 04/28/2025 9:58 PM CDT 04/28/2025 10:13 PM CDT us Wang Almaraz MD LAB BLOOD ORDERABLES Final R esult [facility] [place] [address] * (ABNORMAL) eGFR (04/28/2025 9:58 PM CDT) [facility] eGFR 47(L) >=60 mL/min/1. 73 m2 Comment: Interpretive Data Reference Interval Normal >/= 90 mL/min/1.73m2 Mildly decreased* 60 - 89 mL/min/1.73m2 Mildly to moderately decreased 45 - 59 mL/min/1.73m2 Moderately to severely decreased 30 - 44 mL/min/1.73m2 Severely decreased 15 - 29 mL/min/1.73m2 Kidney Failure < 15 mL/min/1.73m2 *Relative to young adult level Estimated glomerular filtration rate is determined by the 2020 CKD-EPI equation recommended by the National Kidney Foundation (A Unifying Approach to GFR Estimation: Recommendations of the NKF-ASK Task Force on Reassessing the Inclusion of Race in Diagnosing Kidney Disease, JASN 2020). The CKD-EPI equation should not be used for patients with unstable renal function and has not been validated in children and those over 70. Current interpretive data was last reviewed 2021. Blood 04/28/2025 9:58 PM CDT 04/28/2025 10:15 PM CDT Dinorah Kahn SWEET POTATO DISINTEGRATOR LAB BLOOD ORDERABLES Final Result DULCE MARIA ARANDA [facility] [place] [address] * (ABNORMAL) aPTT (04/28/2025 9:58 PM CDT) aPTT 62(H) 28 - 38 sec Comment: Interpretive Data Heparin therapeutic range: 66.0 - 100.0 seconds. Range based on correlation with therapeutic heparin activity range of 0.3 - 0.7 Units/mL. Current interpretive data was last revised on 2023. Blood 04/28/2025 9:58 PM CDT 04/28/2025 10:16 PM CDT Narrative DULCE MARIA ARANDA - 04/28/2025 10:25 PM CDT STAT PTT timing: - Draw 6 hours after heparin infusion initiation - Draw 6 hours after every dose change until 2 consecutive PTTs are therapeutic - Once 2 consecutive PTTs are therapeutic, obtain with daily labs until infusion is discontinued - - Restart every 6 hour lab draws and follow instructions accordingly if PTT is outside of therapeutic range Do not draw lab from IV line that is actively infusing heparin. Use the opposite arm. If arm with actively infusing heparin must be used, pause the infusion for at least 2 minutes, and draw specimen below the IV site. For patients with a central venous catheter (CVC), lab must be drawn peripherally (not from CVC). Libia Suarez SWEET POTATO DISINTEGRATOR LAB BLOOD ORDERABLES Final Re sult Performing Organization Address [facility] Co de Phone Number [facility] [place] [address] * (ABNORMAL) CBC without differential (04/28/2025 9:58 PM CDT) Pathologist [facility] WBC 8.88 3.80 - 9.90 K/cumm Hgb 12.8(L) 13.0 - 17.5 g/dL [facility] Hct 39.8 38.9 - 50.3 % [facility] Plt 216 150 - 400 K/cumm [facility] MPV 11.7 9.1 - 12.[address] [facility] RBC 4.74 4.30 - 5.80 M/cumm [facility] MCV 84.0 81.3 - 96.[address] [facility] MCH 27.0(L) 27.1 - 33.[address] [facility] MCHC 32.2(L) 32.3 - 35.7 g/dL [facility] RDW CV 15.9(H) 11.1 - 14.9 % [facility] RDW SD 49.0(H) 35.7 - 48.[address] [facility] NRBC abs 0.00 0.00 - 0.01 K/cumm [facility] Blood 04/28/2025 9:58 PM CDT 04/28/2025 10:15 PM CDT Libia Suarez SWEET POTATO DISINTEGRATOR LAB BLOOD ORDERABLES Final Re sult [facility] [place] [address] * Phosphorus (04/28/2025 9:58 PM CDT) Pathologist [facility] Phosphorus, pl 3.6 2.3 - 4.5 mg/dL Blood 04/28/2025 9:58 PM CDT 04/28/2025 10:15 PM CDT Libia Suarez SWEET POTATO DISINTEGRATOR LAB BLOOD ORDERABLES Final Re sult [facility] [place] [address] * Magnesium (04/28/2025 9:58 PM CDT) [facility] Magnesium 2.2 1.4 - 2.5 mg/dL Blood 04/28/2025 9:58 PM CDT 04/28/2025 10:15 PM CDT Libia Suarez SWEET POTATO DISINTEGRATOR LAB BLOOD ORDERABLES Final Re sult Performing Organization Address [facility] Co de Phone Number [facility] [place] [address] * (ABNORMAL) Hepatic function panel (04/28/2025 9:58 PM CDT) [facility] Bilirubin, total 0.6 0.1 - 1.2 mg/dL Bilirubin, direct 0.3 0.1 - 0.3 mg/dL [facility] Protein, pl 6.5 6.5 - 8.5 g/dL [facility] Albumin 4.1 3.5 - 5.0 g/dL [facility] Alk phos 285(H) 40 - 130 Units/L [facility] ALT 21 7 - 55 Units/L [facility] AST 20 10 - 50 Units/L [facility] Blood 04/28/2025 9:58 PM CDT 04/28/2025 10:15 PM CDT Libia Suarez SWEET POTATO DISINTEGRATOR LAB BLOOD ORDERABLES Final Re sult [facility] [place] [address] * (ABNORMAL) Basic metabolic panel (04/28/2025 9:58 PM CDT) Sodium 138 135 - 145 mmol/L Potassium, pl 4.4 3.3 - 4.9 mmol/L [facility] Chloride 98 97 - 110 mmol/L [facility] CO2 28 22 - 32 mmol/L [facility] Anion gap 12 2 - 15 mmol/L [facility] BUN 36(H) 6 - 25 mg/dL [facility] Creatinine 1.65(H) 0.80 - 1.30 mg/dL [facility] Glucose 134 70 - 199 mg/dL [facility] Comment: Interpretive Data Fasting glucose >/= 126 mg/dl is diagnostic for diabetes. Fasting is defined as no caloric intake for at least 8 hours. Fasting glucose between 100 mg/dl to 125 mg/dl is diagnostic of prediabetes. In a patient with classic symptoms of hyperglycemia or hyperglycemic crisis, a random glucose >/= 200 mg/dl is diagnostic for diabetes. In the absence of unequivocal hyperglycemia, results should be confirmed by repeat testing. The classification and Diagnosis of Diabetes Diabetes Care 2021; 46: S19-S40. Current interpretive data was last revised 2022. Calcium 9.3 8.5 - 10.3 mg/dL [facility] Blood 04/28/2025 9:58 PM CDT 04/28/2025 10:15 PM CDT Dinorah Kahn NP LAB BLOOD ORDERABLES Final Result Performing Organization Address [facility]/ZIP Co de Phone Number [facility] [place] [address] * Potassium, whole blood (04/28/2025 12:19 PM CDT) Pathologist [facility] Potassium, bld 4.3 3.3 - 4.9 mmol/L Blood 04/28/2025 12:1 9 PM CDT 04/28/2025 12:50 PM CDT Dinorah Kahn NP LAB BLOOD ORDERABLES Final Result Performing Organization Address [facility]/ZIP Co de Phone Number [facility] [place] [address] * Oxyhemoglobin, pulmonary artery (04/28/2025 8:22 AM CDT) Pathologist [facility] Oxyhemoglobin, PA 66.4 % Comment: Interpretive Data No reference range established. Current interpretive data was last revised 2020. Blood 04/28/2025 8:22 AM CDT 04/28/2025 8:38 AM CDT us Wang Almaraz MD LAB BLOOD ORDERABLES Final [facility] [place] [address] * (ABNORMAL) Hemoglobin total, pulmonary artery (04/28/2025 8:22 AM CDT) Pathologist [facility] Hemoglobin total, PA 12.2(L) 13.0 - 17.5 g/dL Blood 04/28/2025 8:22 AM CDT 04/28/2025 8:38 AM CDT us Wang Almaraz MD LAB BLOOD ORDERABLES Final R esult DULCE MARIA [facility] [place] [address] * eGFR (04/28/2025 8:22 AM CDT) eGFR 69 >=60 mL/min/1. 73 m2 Comment: Interpretive Data Reference Interval Normal >/= 90 mL/min/1.73m2 Mildly decreased* 60 - 89 mL/min/1.73m2 Mildly to moderately decreased 45 - 59 mL/min/1.73m2 Moderately to severely decreased 30 - 44 mL/min/1.73m2 Severely decreased 15 - 29 mL/min/1.73m2 Kidney Failure < 15 mL/min/1.73m2 *Relative to young adult level Estimated glomerular filtration rate is determined by the 2021 CKD-EPI equation recommended by the National Kidney Foundation (A Unifying Approach to GFR Estimation: Recommendations of the NKF-ASK Task Force on Reassessing the Inclusion of Race in Diagnosing Kidney Disease, JASN 2020). The CKD-EPI equation should not be used for patients with unstable renal function and has not been validated in children and those over 70. Current interpretive data was last reviewed 2021. Blood 04/28/2025 8:22 AM CDT 04/28/2025 8:41 AM CDT us Dinorah Kahn NP LAB BLOOD ORDERABLES Final Result [facility] [place] [address] * (ABNORMAL) Basic metabolic panel (04/28/2025 8:22 AM CDT) Sodium 138 135 - 145 mmol/L Potassium, pl 3.9 3.3 - 4.9 mmol/L [facility] Chloride 101 97 - 110 mmol/L [facility] CO2 26 22 - 32 mmol/L [facility] Anion gap 11 2 - 15 mmol/L [facility] BUN 27(H) 6 - 25 mg/dL [facility] Creatinine 1.21 0.80 - 1.30 mg/dL [facility] Glucose 172 70 - 199 mg/dL [facility] Comment: Interpretive Data Fasting glucose >/= 126 mg/dl is diagnostic for diabetes. Fasting is defined as no caloric intake for at least 8 hours. Fasting glucose between 100 mg/dl to 125 mg/dl is diagnostic of prediabetes. In a patient with classic symptoms of hyperglycemia or hyperglycemic crisis, a random glucose >/= 200 mg/dl is diagnostic for diabetes. In the absence of unequivocal hyperglycemia, results should be confirmed by repeat testing. The classification and Diagnosis of Diabetes Diabetes Care 202; 46: S19-S40. Current interpretive data was last revised 2022. Calcium 8.6 8.5 - 10.3 mg/dL [facility] Blood 04/28/2025 8:22 AM CDT 04/28/2025 8:41 AM CDT us Dinorah Kahn NP LAB BLOOD ORDERABLES Final Result DULCE MARIA [facility] [place] [address] * XR Chest 1 View (04/28/2025 8:10 AM CDT) Anatomical Region Laterality Modality Body, Chest N/A Computed Radiogr aphy 04/29/2025 10:2 4 AM CDT Impressions 04/29/2025 11:03 AM CDT Comparison with 04/27/2025. Left internal jugular [place] catheter in the proximal right pulmonary artery. Right peripherally inserted central venous catheter at the superior cavoatrial junction. Unchanged small bilateral pleural effusions with subsegmental atelectasis. No pneumothorax. Stable cardiomediastinal silhouette. Dictated by: Magali Cotton MD The radiology attending physician has personally reviewed this study, and had reviewed and/or edited this written report and agrees with it. Electronically signed by: Juanito Brandt M.D. Narrative 04/29/2025 11:03 AM CDT EXAMINATION: 1 view chest radiograph Procedure Note Juanito Brandt MD - 04/29/2025 EXAMINATION: 1 view chest radiograph IMPRESSION: Comparison with 04/27/2025. Left internal jugular [place] catheter in the proximal right pulmonary artery. Right peripherally inserted central venous catheter at the superior cavoatrial junction. Unchanged small bilateral pleural effusions with subsegmental atelectasis. No pneumothorax. Stable cardiomediastinal silhouette. Dictated by: Magali Cotton MD The radiology attending physician has personally reviewed this study, and had reviewed and/or edited this written report and agrees with it. Electronically signed by: Juanito Brandt M.D. us Dinorah Kahn NP IMG XR PROCEDURES Final Res ult * Potassium, whole blood (04/28/2025 6:33 AM CDT) Potassium, bld 3.8 3.3 - 4.9 mmol/L Blood 04/28/2025 6:33 AM CDT 04/28/2025 6:45 AM CDT us Dinorah Kahn NP LAB BLOOD ORDERABLES Final Result Performing Organization Address City/[facility]/ZIP Co de Phone Number [facility] [place] [address] * Oxyhemoglobin, pulmonary artery (04/27/2025 9:06 PM CDT) Pathologist [facility] Oxyhemoglobin, PA 57.7 % Comment: Interpretive Data No reference range established. Current interpretive data was last revised 2020. Blood 04/27/2025 9:06 PM CDT 04/27/2025 9:21 PM CDT us Wang Almaraz MD LAB BLOOD ORDERABLES Final R esult Performing Organization Address [facility] [place] [address] * (ABNORMAL) Hemoglobin total, pulmonary artery (04/27/2025 9:06 PM CDT) Pathologist [facility] Hemoglobin total, PA 12.6(L) 13.0 - 17.5 g/dL Blood 04/27/2025 9:06 PM CDT 04/27/2025 9:21 PM CDT Wang Almaraz MD LAB BLOOD ORDERABLES Final R esult Performing Organization Address [facility] Co de Phone Number [facility] [place] [address] * eGFR (04/27/2025 9:06 PM CDT) eGFR 61 >=60 mL/min/1. 73 m2 Comment: Interpretive Data Reference Interval Normal >/= 90 mL/min/1.73m2 Mildly decreased* 60 - 89 mL/min/1.73m2 Mildly to moderately decreased 45 - 59 mL/min/1.73m2 Moderately to severely decreased 30 - 44 mL/min/1.73m2 Severely decreased 15 - 29 mL/min/1.73m2 Kidney Failure < 15 mL/min/1.73m2 *Relative to young adult level Estimated glomerular filtration rate is determined by the 2020 CKD-EPI equation recommended by the National Kidney Foundation (A Unifying Approach to GFR Estimation: Recommendations of the NKF-ASK Task Force on Reassessing the Inclusion of Race in Diagnosing Kidney Disease, JASN 2020). The CKD-EPI equation should not be used for patients with unstable renal function and has not been validated in children and those over 70. Current interpretive data was last reviewed 2021. Blood 04/27/2025 9:06 PM CDT 04/27/2025 9:21 PM CDT us Dinorah Kahn SWEET POTATO DISINTEGRATOR LAB BLOOD ORDERABLES Final Result DULCE MARIA ARANDA [facility] [place] [address] * (ABNORMAL) aPTT (04/27/2025 9:06 PM CDT) aPTT 60(H) 28 - 38 sec Comment: Interpretive Data Heparin therapeutic range: 66.0 - 100.0 seconds. Range based on correlation with therapeutic heparin activity range of 0.3 - 0.7 Units/mL. Current interpretive data was last revised on 2023. Blood 04/27/2025 9:06 PM CDT 04/27/2025 9:36 PM CDT Narrative DULCE MARIA ARANDA - 04/27/2025 9:45 PM CDT STAT PTT timing: - Draw 6 hours after heparin infusion initiation - Draw 6 hours after every dose change until 2 consecutive PTTs are therapeutic - Once 2 consecutive PTTs are therapeutic, obtain with daily labs until infusion is discontinued - - Restart every 6 hour lab draws and follow instructions accordingly if PTT is outside of therapeutic range Do not draw lab from IV line that is actively infusing heparin. Use the opposite arm. If arm with actively infusing heparin must be used, pause the infusion for at least 2 minutes, and draw specimen below the IV site. For patients with a central venous catheter (CVC), lab must be drawn peripherally (not from CVC). Libia Suarez NP LAB BLOOD ORDERABLES Final Re sult [facility] [place] [address] * (ABNORMAL) CBC without differential (04/27/2025 9:06 PM CDT) [facility] WBC 7.86 3.80 - 9.90 K/cumm Hgb 12.3(L) 13.0 - 17.5 g/dL [facility] Hct 37.6(L) 38.9 - 50.3 % [facility] Plt 219 150 - 400 K/cumm [facility] MPV 11.8 9.1 - 12.[address] [facility] RBC 4.57 4.30 - 5.80 M/cumm [facility] MCV 82.3 81.3 - 96.[address] [facility] MCH 26.9(L) 27.1 - 33.[address] [facility] MCHC 32.7 32.3 - 35.7 g/dL [facility] RDW CV 15.9(H) 11.1 - 14.9 % [facility] RDW SD 47.8 35.7 - 48.[address] [facility] NRBC abs 0.00 0.00 - 0.01 K/cumm [facility] Blood 04/27/2025 9:06 PM CDT 04/27/2025 9:22 PM CDT Libia Suarez NP LAB BLOOD ORDERABLES Final Re sult [facility] [place] [address] * Phosphorus (04/27/2025 9:06 PM CDT) [facility] Phosphorus, pl 3.9 2.3 - 4.5 mg/dL Blood 04/27/2025 9:06 PM CDT 04/27/2025 9:21 PM CDT Libia Suarez NP LAB BLOOD ORDERABLES Final Re sult Performing Organization Address City/State/[facility] [place] [address] * Magnesium (04/27/2025 9:06 PM CDT) [facility] Magnesium 2.2 1.4 - 2.5 mg/dL Blood 04/27/2025 9:06 PM CDT 04/27/2025 9:21 PM CDT Libia Suarez SWEET POTATO DISINTEGRATOR LAB BLOOD ORDERABLES Final Re sult Performing Organization Address City/[facility] [place] [address] * (ABNORMAL) Hepatic function panel (04/27/2025 9:06 PM CDT) [facility] Bilirubin, total 0.6 0.1 - 1.2 mg/dL Bilirubin, direct 0.3 0.1 - 0.3 mg/dL [facility] Protein, pl 6.1(L) 6.5 - 8.5 g/dL [facility] Albumin 3.9 3.5 - 5.0 g/dL [facility] Alk phos 264(H) 40 - 130 Units/L [facility] ALT 21 7 - 55 Units/L [facility] AST 24 10 - 50 Units/L [facility] Blood 04/27/2025 9:06 PM CDT 04/27/2025 9:21 PM CDT us Libia Suarez SWEET POTATO DISINTEGRATOR LAB BLOOD ORDERABLES Final Re sult [facility] [place] [address] * (ABNORMAL) Basic metabolic panel (04/27/2025 9:06 PM CDT) [facility] Sodium 137 135 - 145 mmol/L Potassium, pl 4.2 3.3 - 4.9 mmol/L [facility] Chloride 97 97 - 110 mmol/L [facility] CO2 29 22 - 32 mmol/L [facility] Anion gap 11 2 - 15 mmol/L [facility] BUN 34(H) 6 - 25 mg/dL [facility] Creatinine 1.33(H) 0.80 - 1.30 mg/dL [facility] Glucose 123 70 - 199 mg/dL [facility] Comment: Interpretive Data Fasting glucose >/= 126 mg/dl is diagnostic for diabetes. Fasting is defined as no caloric intake for at least 8 hours. Fasting glucose between 100 mg/dl to 125 mg/dl is diagnostic of prediabetes. In a patient with classic symptoms of hyperglycemia or hyperglycemic crisis, a random glucose >/= 200 mg/dl is diagnostic for diabetes. In the absence of unequivocal hyperglycemia, results should be confirmed by repeat testing. The classification and Diagnosis of Diabetes Diabetes Care 2021; 46: S19-S40. Current interpretive data was last revised 2022. Calcium 9.2 8.5 - 10.3 mg/dL [facility] Blood 04/27/2025 9:06 PM CDT 04/27/2025 9:21 PM CDT us Dinorah Kahn SWEET POTATO DISINTEGRATOR LAB BLOOD ORDERABLES Final Result Performing Organization Address [facility]/ZIP Co de Phone Number [facility] [place] [address] * Oxyhemoglobin, pulmonary artery (04/27/2025 8:55 AM CDT) Oxyhemoglobin, PA 64.0 % Comment: Interpretive Data No reference range established. Current interpretive data was last revised 2020. Blood 04/27/2025 8:55 AM CDT 04/27/2025 9:08 AM CDT us Wang Almaraz MD LAB BLOOD ORDERABLES Final R esult DULCE MARIA [facility] [place] [address] * (ABNORMAL) Hemoglobin total, pulmonary artery (04/27/2025 8:55 AM CDT) Hemoglobin total, PA 12.4(L) 13.0 - 17.5 g/dL Blood 04/27/2025 8:55 AM CDT 04/27/2025 9:08 AM CDT us Wang Almaraz MD LAB BLOOD ORDERABLES Final R esult Performing Organization Address City/[facility] Co de Phone Number DULCE MARIA [facility] [place] [address] * eGFR (04/27/2025 8:55 AM CDT) eGFR 64 >=60 mL/min/1. 73 m2 Comment: Interpretive Data Reference Interval Normal >/= 90 mL/min/1.73m2 Mildly decreased* 60 - 89 mL/min/1.73m2 Mildly to moderately decreased 45 - 59 mL/min/1.73m2 Moderately to severely decreased 30 - 44 mL/min/1.73m2 Severely decreased 15 - 29 mL/min/1.73m2 Kidney Failure < 15 mL/min/1.73m2 *Relative to young adult level Estimated glomerular filtration rate is determined by the 2020 CKD-EPI equation recommended by the National Kidney Foundation (A Unifying Approach to GFR Estimation: Recommendations of the NKF-ASK Task Force on Reassessing the Inclusion of Race in Diagnosing Kidney Disease, JASN 2020). The CKD-EPI equation should not be used for patients with unstable renal function and has not been validated in children and those over 70. Current interpretive data was last reviewed 2021. Blood 04/27/2025 8:55 AM CDT 04/27/2025 9:09 AM CDT us Dinorah Kahn NP LAB BLOOD ORDERABLES Final Result Performing Organization Address City/[facility]/ZIP Co de Phone Number [facility] [place] [address] * (ABNORMAL) Lactate, whole blood (04/27/2025 8:55 AM CDT) Pathologist [facility] Lactate, bld 2.1(H) 0.7 - 2.0 mmol/L Blood 04/27/2025 8:55 AM CDT 04/27/2025 9:08 AM CDT us Vannesa Gibbs MD LAB BLOOD ORDERABLES Fi nal Result Performing Organization Address [facility] Co de Phone Number [facility] [place] [address] * (ABNORMAL) Basic metabolic panel (04/27/2025 8:55 AM CDT) Sodium 135 135 - 145 mmol/L Potassium, pl 4.2 3.3 - 4.9 mmol/L [facility] Chloride 97 97 - 110 mmol/L [facility] CO2 28 22 - 32 mmol/L [facility] Anion gap 10 2 - 15 mmol/L [facility] BUN 30(H) 6 - 25 mg/dL [facility] Creatinine 1.28 0.80 - 1.30 mg/dL [facility] Glucose 186 70 - 199 mg/dL [facility] Comment: Interpretive Data Fasting glucose >/= 126 mg/dl is diagnostic for diabetes. Fasting is defined as no caloric intake for at least 8 hours. Fasting glucose between 100 mg/dl to 125 mg/dl is diagnostic of prediabetes. In a patient with classic symptoms of hyperglycemia or hyperglycemic crisis, a random glucose >/= 200 mg/dl is diagnostic for diabetes. In the absence of unequivocal hyperglycemia, results should be confirmed by repeat testing. The classification and Diagnosis of Diabetes Diabetes Care 2021; 46: S19-S40. Current interpretive data was last revised 2022. Calcium 9.4 8.5 - 10.3 mg/dL DUL[facility] MARIA AR[facility]DA Blood 04/27/2025 8:55 AM CDT 04/27/2025 9:09 AM CDT us Dinorah Kahn NP LAB BLOOD ORDERABLES Final Result DULCE MARIA ARANDA [facility] Department of [place] [address] * XR Chest 1 View (04/27/2025 8:23 AM CDT) Anatomical Region Laterality Modality Body, Chest N/A Computed Radiogr aphy 04/27/2025 3:50 PM CDT Impressions 04/27/2025 3:50 PM CDT Comparison to 04/26/2025. Left internal jugular [place]-Jayne catheter terminates in right pulmonary artery. Right upper extremity peripherally inserted central catheter terminates in the lower superior vena cava. Mild cardiomegaly. Bibasilar subsegmental atelectasis with trace bilateral pleural effusions, unchanged from the prior examination. No new consolidation. No pneumothorax. Electronically signed by: Juanito Brandt M.D. Narrative 04/27/2025 3:50 PM CDT EXAMINATION: 1 view chest radiograph Procedure Note Juanito Brandt MD - 04/27/2025 EXAMINATION: 1 view chest radiograph IMPRESSION: Comparison to 04/26/2025. Left internal jugular [place]-Jayne catheter terminates in right pulmonary artery. Right upper extremity peripherally inserted central catheter terminates in the lower superior vena cava. Mild cardiomegaly. Bibasilar subsegmental atelectasis with trace bilateral pleural effusions, unchanged from the prior examination. No new consolidation. No pneumothorax. Electronically signed by: Juanito Brandt M.D. us Dinorah Kahn SWEET POTATO DISINTEGRATOR IMG XR PROCEDURES Final Res ult * Antibody identification (04/27/2025 12:30 AM CDT) Antibody ID 1 Anti-CD38 Comment:Panreactive -CD38 on reagent RBCs reacting with anti-CD38 therapy. DTT treatment removes cell surface CD38 and allows detection of common clinically significant antibodies except those against Dilma antigens. TRANSFUSION 2015;55;[id number] Blood 04/27/2025 12:3 0 AM CDT 04/27/2025 12:30 AM CDT Libia Suarez NP LAB BLOOD BANK TEST ORDERABLE S Final Result Performing Organization Address [facility] Co de Phone Number [facility] [place] [address] * Oxyhemoglobin, pulmonary artery (04/26/2025 10:18 PM CDT) Pathologist [facility] Oxyhemoglobin, PA 66.6 % Comment: Interpretive Data No reference range established. Current interpretive data was last revised 2020. Blood 04/26/2025 10:1 8 PM CDT 04/26/2025 10:33 PM CDT us Wang Almaraz MD LAB BLOOD ORDERABLES Final R esult Performing Organization Address City/[facility]/ZIP Co de Phone Number [facility] [place] [address] * (ABNORMAL) Hemoglobin total, pulmonary artery (04/26/2025 10:18 PM CDT) Hemoglobin total, PA 12.8(L) 13.0 - 17.5 g/dL Blood 04/26/2025 10:1 8 PM CDT 04/26/2025 10:33 PM CDT us Wang Almaraz MD LAB BLOOD ORDERABLES Final R esult Performing Organization Address City/[facility]/ZIP Co de Phone Number [facility] [place] [address] * eGFR (04/26/2025 10:18 PM CDT) eGFR 60 >=60 mL/min/1. 73 m2 Comment: Interpretive Data Reference Interval Normal >/= 90 mL/min/1.73m2 Mildly decreased* 60 - 89 mL/min/1.73m2 Mildly to moderately decreased 45 - 59 mL/min/1.73m2 Moderately to severely decreased 30 - 44 mL/min/1.73m2 Severely decreased 15 - 29 mL/min/1.73m2 Kidney Failure < 15 mL/min/1.73m2 *Relative to young adult level Estimated glomerular filtration rate is determined by the 2020 CKD-EPI equation recommended by the National Kidney Foundation (A Unifying Approach to GFR Estimation: Recommendations of the NKF-ASK Task Force on Reassessing the Inclusion of Race in Diagnosing Kidney Disease, JASN 2020). The CKD-EPI equation should not be used for patients with unstable renal function and has not been validated in children and those over 70. Current interpretive data was last reviewed 2021. Blood 04/26/2025 10:1 8 PM CDT 04/26/2025 10:37 PM CDT us Dinorah Kahn NP LAB BLOOD ORDERABLES Final Result Performing Organization Address City/[facility]/ZIP Co de Phone Number [facility]CE [facility] [place] [address] * Lactate, whole blood (04/26/2025 10:18 PM CDT) Lactate, bld 0.8 0.7 - 2.0 mmol/L Blood 04/26/2025 10:1 8 PM CDT 04/26/2025 10:33 PM CDT Wang Almaraz MD LAB BLOOD ORDERABLES Final R esult Performing Organization Address [facility]/ZIP Co de Phone Number [facility] [place] [address] * (ABNORMAL) aPTT (04/26/2025 10:18 PM CDT) Pathologist [facility] aPTT 61(H) 28 - 38 sec Comment: Interpretive Data Heparin therapeutic range: 66.0 - 100.0 seconds. Range based on correlation with therapeutic heparin activity range of 0.3 - 0.7 Units/mL. Current interpretive data was last revised on 2023. Blood 04/26/2025 10:1 8 PM CDT 04/26/2025 10:38 PM CDT [facility]ative [facility] - 04/26/2025 10:47 PM CDT STAT PTT timing: - Draw 6 hours after heparin infusion initiation - Draw 6 hours after every dose change until 2 consecutive PTTs are therapeutic - Once 2 consecutive PTTs are therapeutic, obtain with daily labs until infusion is discontinued - - Restart every 6 hour lab draws and follow instructions accordingly if PTT is outside of therapeutic range Do not draw lab from IV line that is actively infusing heparin. Use the opposite arm. If arm with actively infusing heparin must be used, pause the infusion for at least 2 minutes, and draw specimen below the IV site. For patients with a central venous catheter (CVC), lab must be drawn peripherally (not from CVC). us Libia Suarez SWEET POTATO DISINTEGRATOR LAB BLOOD ORDERABLES Final Re sult DULCE MARIA ARANDA [facility] [place] [address] * (ABNORMAL) CBC without differential (04/26/2025 10:18 PM CDT) Pathologist [facility] WBC 7.97 3.80 - 9.90 K/cumm Hgb 12.3(L) 13.0 - 17.5 g/dL [facility] Hct 38.2(L) 38.9 - 50.3 % [facility] Plt 212 150 - 400 K/cumm [facility] MPV 11.8 9.1 - 12.[address] [facility] RBC 4.55 4.30 - 5.80 M/cumm [facility] MCV 84.0 81.3 - 96.[address] [facility] MCH 27.0(L) 27.1 - 33.[address] [facility] MCHC 32.2(L) 32.3 - 35.7 g/dL [facility] RDW CV 15.9(H) 11.1 - 14.9 % [facility] RDW SD 48.7(H) 35.7 - 48.[address] [facility] NRBC abs 0.00 0.00 - 0.01 K/cumm [facility] Blood 04/26/2025 10:1 8 PM CDT 04/26/2025 11:25 PM CDT Libia Suarez NP LAB BLOOD ORDERABLES Final Re sult [facility] [place] [address] * (ABNORMAL) Type and screen (04/26/2025 10:18 PM CDT) Poppy, indirect Positive(A) ABO Rh O Positive [facility] Blood 04/26/2025 10:1 8 PM CDT 04/26/2025 11:06 PM CDT Narrative [facility] - 04/27/2025 12:30 AM CDT Has the patient had Daratumumab or Isatuximab in the past 6 months?->Unknown Libia Suarez NP LAB BLOOD BANK TEST ORDERABLE S Final Result [facility] [place] [address] * Phosphorus (04/26/2025 10:18 PM CDT) Phosphorus, pl 4.3 2.3 - 4.5 mg/dL Blood 04/26/2025 10:1 8 PM CDT 04/26/2025 10:37 PM CDT Libia Suarez SWEET POTATO DISINTEGRATOR LAB BLOOD ORDERABLES Final Re sult Performing Organization Address City/[facility]/ZIP Co de Phone Number [facility] [place] [address] * Magnesium (04/26/2025 10:18 PM CDT) Pathologist [facility] Magnesium 2.2 1.4 - 2.5 mg/dL Blood 04/26/2025 10:1 8 PM CDT 04/26/2025 10:37 PM CDT Libia Suarez SWEET POTATO DISINTEGRATOR LAB BLOOD ORDERABLES Final Re sult Performing Organization Address [facility] de Phone Number [facility] [place] [address] * (ABNORMAL) Hepatic function panel (04/26/2025 10:18 PM CDT) Pathologist [facility] Bilirubin, total 0.6 0.1 - 1.2 mg/dL Bilirubin, direct 0.3 0.1 - 0.3 mg/dL [facility] Protein, pl 6.1(L) 6.5 - 8.5 g/dL [facility] Albumin 3.7 3.5 - 5.0 g/dL [facility] Alk phos 272(H) 40 - 130 Units/L [facility] ALT 21 7 - 55 Units/L [facility] AST 22 10 - 50 Units/L [facility] Blood 04/26/2025 10:1 8 PM CDT 04/26/2025 10:37 PM CDT Libia Suarez SWEET POTATO DISINTEGRATOR LAB BLOOD ORDERABLES Final Re sult [facility] [place] [address] * (ABNORMAL) Basic metabolic panel (04/26/2025 10:18 PM CDT) Pathologist [facility] Sodium 136 135 - 145 mmol/L Potassium, pl 4.5 3.3 - 4.9 mmol/L [facility] Chloride 99 97 - 110 mmol/L [facility] CO2 28 22 - 32 mmol/L [facility] Anion gap 9 2 - 15 mmol/L [facility] BUN 32(H) 6 - 25 mg/dL [facility] Creatinine 1.35(H) 0.80 - 1.30 mg/dL [facility] Glucose 129 70 - 199 mg/dL [facility] Comment: Interpretive Data Fasting glucose >/= 126 mg/dl is diagnostic for diabetes. Fasting is defined as no caloric intake for at least 8 hours. Fasting glucose between 100 mg/dl to 125 mg/dl is diagnostic of prediabetes. In a patient with classic symptoms of hyperglycemia or hyperglycemic crisis, a random glucose >/= 200 mg/dl is diagnostic for diabetes. In the absence of unequivocal hyperglycemia, results should be confirmed by repeat testing. The classification and Diagnosis of Diabetes Diabetes Care 2021; 46: S19-S40. Current interpretive data was last revised 2022. Calcium 9.4 8.5 - 10.3 mg/dL [facility] Blood 04/26/2025 10:1 8 PM CDT 04/26/2025 10:37 PM CDT Dinorah Kahn SWEET POTATO DISINTEGRATOR LAB BLOOD ORDERABLES Final Result [facility] [place] [address] * Infection Prevention Shady auris PCR, surveillance Axilla/Groin (04/26/2025 12:42 PM CDT) Pathologist [facility] Shady auris DNA Not Detected Not Detected [facility] Comment: Interpretive Data Testing performed by [facility] using the Lucas carlos 6800 Shady auris assay. This assay detects DNA from Shady auris using Real-Time PCR. This assay is laboratory developed and is not cleared by the [place] Food and Drug Administration. The performance characteristics have been verified by the [facility]. Axilla/Groin 04/26/2025 12:4 2 PM CDT 04/26/2025 1:06 PM CDT Narrative DULCE MARIA [facility] - 04/27/2025 5:13 AM CDT Order placed by OPA due to ring surveillance. us Instant Order Generic Provider LAB MICROBIOLOGY - GENERAL ORDERABLES Final Result [facility] [place] [address] [facility] * XR Chest 1 View (04/26/2025 9:13 AM CDT) Anatomical Region Laterality Modality Body, Chest N/A Computed Radiogr aphy 04/26/2025 10:1 2 AM CDT Impressions 04/26/2025 10:59 AM CDT Comparison with 04/25/2025. Right peripherally inserted central venous catheter at the superior cavoatrial junction. Left internal jugular [place]-Jayne catheter overlies main pulmonary artery. Unchanged small bilateral pleural effusions with associated atelectasis. No pneumothorax. Stable cardiomediastinal silhouette. Dictated by: Magali Cotton MD The radiology attending physician has personally reviewed this study, and had reviewed and/or edited this written report and agrees with it. Electronically signed by: Jessica Jackson M.D. Narrative 04/26/2025 10:59 AM CDT EXAMINATION: 1 view chest radiograph Procedure Note Jessica Jackson MD - 04/26/2025 EXAMINATION: 1 view chest radiograph IMPRESSION: Comparison with 04/25/2025. Right peripherally inserted central venous catheter at the superior cavoatrial junction. Left internal jugular [place]-Jayne catheter overlies main pulmonary artery. Unchanged small bilateral pleural effusions with associated atelectasis. No pneumothorax. Stable cardiomediastinal silhouette. Dictated by: Magali Cotton MD The radiology attending physician has personally reviewed this study, and had reviewed and/or edited this written report and agrees with it. Electronically signed by: Jessica Jackson M.D. us Dinorah Kahn SWEET POTATO DISINTEGRATOR IMG XR PROCEDURES Final Res ult * Oxyhemoglobin, pulmonary artery (04/26/2025 8:37 AM CDT) Oxyhemoglobin, PA 68.4 % Comment: Interpretive Data No reference range established. Current interpretive data was last revised 2020. Blood 04/26/2025 8:37 AM CDT 04/26/2025 8:46 AM CDT us Wang Almaraz MD LAB BLOOD ORDERABLES Final R esult Performing Organization Address City/[facility] Co de Phone Number DULCE MARIA [facility] [place] [address] * (ABNORMAL) Hemoglobin total, pulmonary artery (04/26/2025 8:37 AM CDT) Hemoglobin total, PA 12.3(L) 13.0 - 17.5 g/dL Blood 04/26/2025 8:37 AM CDT 04/26/2025 8:46 AM CDT Wang Almaraz MD LAB BLOOD ORDERABLES Final R esult DULCE MARIA [facility] [place] [address] * eGFR (04/26/2025 8:37 AM CDT) eGFR 63 >=60 mL/min/1. 73 m2 Comment: Interpretive Data Reference Interval Normal >/= 90 mL/min/1.73m2 Mildly decreased* 60 - 89 mL/min/1.73m2 Mildly to moderately decreased 45 - 59 mL/min/1.73m2 Moderately to severely decreased 30 - 44 mL/min/1.73m2 Severely decreased 15 - 29 mL/min/1.73m2 Kidney Failure < 15 mL/min/1.73m2 *Relative to young adult level Estimated glomerular filtration rate is determined by the 2020 CKD-EPI equation recommended by the National Kidney Foundation (A Unifying Approach to GFR Estimation: Recommendations of the NKF-ASK Task Force on Reassessing the Inclusion of Race in Diagnosing Kidney Disease, JASN 2020). The CKD-EPI equation should not be used for patients with unstable renal function and has not been validated in children and those over 70. Current interpretive data was last reviewed 2021. Blood 04/26/2025 8:37 AM CDT 04/26/2025 8:49 AM CDT us Dinorah Kahn NP LAB BLOOD ORDERABLES Final Result Performing Organization Address City/[facility]/ZIP Co de Phone Number [facility] [place] [address] * Lactate, whole blood (04/26/2025 8:37 AM CDT) Lactate, bld 1.8 0.7 - 2.0 mmol/L Blood 04/26/2025 8:37 AM CDT 04/26/2025 8:46 AM CDT us Wang Almaraz MD LAB BLOOD ORDERABLES Final R esult [facility] [place] [address] * Basic metabolic panel (04/26/2025 8:37 AM CDT) Sodium 138 135 - 145 mmol/L Potassium, pl 3.8 3.3 - 4.9 mmol/L [facility] Chloride 101 97 - 110 mmol/L [facility] CO2 28 22 - 32 mmol/L [facility] Anion gap 9 2 - 15 mmol/L [facility] BUN 25 6 - 25 mg/dL [facility] Creatinine 1.29 0.80 - 1.30 mg/dL [facility] Glucose 189 70 - 199 mg/dL [facility] Comment: Interpretive Data Fasting glucose >/= 126 mg/dl is diagnostic for diabetes. Fasting is defined as no caloric intake for at least 8 hours. Fasting glucose between 100 mg/dl to 125 mg/dl is diagnostic of prediabetes. In a patient with classic symptoms of hyperglycemia or hyperglycemic crisis, a random glucose >/= 200 mg/dl is diagnostic for diabetes. In the absence of unequivocal hyperglycemia, results should be confirmed by repeat testing. The classification and Diagnosis of Diabetes Diabetes Care 2021; 46: S19-S40. Current interpretive data was last revised 2022. Calcium 9.4 8.5 - 10.3 mg/dL [facility] Blood 04/26/2025 8:37 AM CDT 04/26/2025 8:49 AM CDT us Dinorah Kahn NP LAB BLOOD ORDERABLES Final Result [facility] [place] [address] * (ABNORMAL) aPTT (04/25/2025 10:05 PM CDT) [facility] aPTT 55(H) 28 - 38 sec Comment: Interpretive Data Heparin therapeutic range: 66.0 - 100.0 seconds. Range based on correlation with therapeutic heparin activity range of 0.3 - 0.7 Units/mL. Current interpretive data was last revised on 2023. Blood 04/25/2025 10:0 5 PM CDT 04/25/2025 10:41 PM CDT Narrative [facility] - 04/25/2025 10:51 PM CDT STAT PTT timing: - Draw 6 hours after heparin infusion initiation - Draw 6 hours after every dose change until 2 consecutive PTTs are therapeutic - Once 2 consecutive PTTs are therapeutic, obtain with daily labs until infusion is discontinued - - Restart every 6 hour lab draws and follow instructions accordingly if PTT is outside of therapeutic range Do not draw lab from IV line that is actively infusing heparin. Use the opposite arm. If arm with actively infusing heparin must be used, pause the infusion for at least 2 minutes, and draw specimen below the IV site. For patients with a central venous catheter (CVC), lab must be drawn peripherally (not from CVC). Libia Suarez SWEET POTATO DISINTEGRATOR LAB BLOOD ORDERABLES Final Re sult Performing Organization Address [facility] Co de Phone Number [facility] [place] [address] * Oxyhemoglobin, pulmonary artery (04/25/2025 8:14 PM CDT) Oxyhemoglobin, PA 66.4 % Comment: Interpretive Data No reference range established. Current interpretive data was last revised 2020. Blood 04/25/2025 8:14 PM CDT 04/25/2025 8:23 PM CDT Wang Almaraz MD LAB BLOOD ORDERABLES Final R esult Performing Organization Address [facility] Co de Phone Number [facility] [place] [address] * Potassium, whole blood (04/25/2025 8:14 PM CDT) Potassium, bld 4.2 3.3 - 4.9 mmol/L Blood 04/25/2025 8:14 PM CDT 04/25/2025 8:23 PM CDT Dinorah Kahn SWEET POTATO DISINTEGRATOR LAB BLOOD ORDERABLES Final Result Performing Organization Address [facility] Co de Phone Number [facility] [place] [address] * (ABNORMAL) eGFR (04/25/2025 8:14 PM CDT) eGFR 55(L) >=60 mL/min/1. 73 m2 Comment: Interpretive Data Reference Interval Normal >/= 90 mL/min/1.73m2 Mildly decreased* 60 - 89 mL/min/1.73m2 Mildly to moderately decreased 45 - 59 mL/min/1.73m2 Moderately to severely decreased 30 - 44 mL/min/1.73m2 Severely decreased 15 - 29 mL/min/1.73m2 Kidney Failure < 15 mL/min/1.73m2 *Relative to young adult level Estimated glomerular filtration rate is determined by the 2020 CKD-EPI equation recommended by the National Kidney Foundation (A Unifying Approach to GFR Estimation: Recommendations of the NKF-ASK Task Force on Reassessing the Inclusion of Race in Diagnosing Kidney Disease, JASN 2020). The CKD-EPI equation should not be used for patients with unstable renal function and has not been validated in children and those over 70. Current interpretive data was last reviewed 2021. Blood 04/25/2025 8:14 PM CDT 04/25/2025 8:32 PM CDT us Dinorah Kahn NP LAB BLOOD ORDERABLES Final Result Performing Organization Address City/[facility]/ZIP Co de Phone Number DULCE MARIA [facility] [place] [address] * Lactate, whole blood (04/25/2025 8:14 PM CDT) Lactate, bld 1.7 0.7 - 2.0 mmol/L Blood 04/25/2025 8:14 PM CDT 04/25/2025 8:23 PM CDT us Wang Almaraz MD LAB BLOOD ORDERABLES Final R esult [facility] [place] [address] * (ABNORMAL) aPTT (04/25/2025 8:14 PM CDT) [facility] aPTT 103(H) 28 - 38 sec Comment: Interpretive Data Heparin therapeutic range: 66.0 - 100.0 seconds. Range based on correlation with therapeutic heparin activity range of 0.3 - 0.7 Units/mL. Current interpretive data was last revised on 2023. Blood 04/25/2025 8:14 PM CDT 04/25/2025 8:24 PM CDT Narrative [facility] - 04/25/2025 8:50 PM CDT STAT PTT timing: - Draw 6 hours after heparin infusion initiation - Draw 6 hours after every dose change until 2 consecutive PTTs are therapeutic - Once 2 consecutive PTTs are therapeutic, obtain with daily labs until infusion is discontinued - - Restart every 6 hour lab draws and follow instructions accordingly if PTT is outside of therapeutic range Do not draw lab from IV line that is actively infusing heparin. Use the opposite arm. If arm with actively infusing heparin must be used, pause the infusion for at least 2 minutes, and draw specimen below the IV site. For patients with a central venous catheter (CVC), lab must be drawn peripherally (not from CVC). Libia Suarez SWEET POTATO DISINTEGRATOR LAB BLOOD ORDERABLES Final Re sult [facility] [place] [address] * (ABNORMAL) CBC without differential (04/25/2025 8:14 PM CDT) [facility] WBC 8.86 3.80 - 9.90 K/cumm Hgb 12.3(L) 13.0 - 17.5 g/dL [facility] Hct 38.6(L) 38.9 - 50.3 % [facility] Plt 210 150 - 400 K/cumm [facility] MPV 11.5 9.1 - 12.[address] [facility] RBC 4.57 4.30 - 5.80 M/cumm [facility] MCV 84.5 81.3 - 96.[address] [facility] MCH 26.9(L) 27.1 - 33.[address] [facility] MCHC 31.9(L) 32.3 - 35.7 g/dL [facility] RDW CV 15.8(H) 11.1 - 14.9 % [facility] RDW SD 48.8(H) 35.7 - 48.[address] [facility] NRBC abs 0.00 0.00 - 0.01 K/cumm [facility] Blood 04/25/2025 8:14 PM CDT 04/25/2025 8:32 PM CDT Liiba Suarez SWEET POTATO DISINTEGRATOR LAB BLOOD ORDERABLES Final Re sult Performing Organization Address [facility] de Phone Number [facility] [place] [address] * Phosphorus (04/25/2025 8:14 PM CDT) Phosphorus, pl 3.7 2.3 - 4.5 mg/dL Blood 04/25/2025 8:14 PM CDT 04/25/2025 8:32 PM CDT Libia Suarez SWEET POTATO DISINTEGRATOR LAB BLOOD ORDERABLES Final Re sult Performing Organization Address [facility] de Phone Number [facility] [place] [address] * Magnesium (04/25/2025 8:14 PM CDT) Magnesium 1.9 1.4 - 2.5 mg/dL Blood 04/25/2025 8:14 PM CDT 04/25/2025 8:32 PM CDT Libia Suarez SWEET POTATO DISINTEGRATOR LAB BLOOD ORDERABLES Final Re sult Performing Organization Address [facility]/State/ZIP Co de Phone Number CERNER [facility] [place] [address] * (ABNORMAL) Hepatic function panel (04/25/2025 8:14 PM CDT) Pathologist [facility] Bilirubin, total 0.6 0.1 - 1.2 mg/dL Bilirubin, direct 0.3 0.1 - 0.3 mg/dL [facility] Protein, pl 6.2(L) 6.5 - 8.5 g/dL [facility] Albumin 3.8 3.5 - 5.0 g/dL [facility] Alk phos 267(H) 40 - 130 Units/L [facility] ALT 21 7 - 55 Units/L [facility] AST 22 10 - 50 Units/L [facility] Blood 04/25/2025 8:14 PM CDT 04/25/2025 8:32 PM CDT Libia Suarez SWEET POTATO DISINTEGRATOR LAB BLOOD ORDERABLES Final Re sult DULCE MARIA [facility] [place], [place] [address] * (ABNORMAL) Basic metabolic panel (04/25/2025 8:14 PM CDT) [facility] Sodium 135 135 - 145 mmol/L Potassium, pl 4.3 3.3 - 4.9 mmol/L [facility] Chloride 98 97 - 110 mmol/L [facility] CO2 30 22 - 32 mmol/L [facility] Anion gap 7 2 - 15 mmol/L [facility] BUN 31(H) 6 - 25 mg/dL [facility] Creatinine 1.46(H) 0.80 - 1.30 mg/dL [facility] Glucose 192 70 - 199 mg/dL [facility] Comment: Interpretive Data Fasting glucose >/= 126 mg/dl is diagnostic for diabetes. Fasting is defined as no caloric intake for at least 8 hours. Fasting glucose between 100 mg/dl to 125 mg/dl is diagnostic of prediabetes. In a patient with classic symptoms of hyperglycemia or hyperglycemic crisis, a random glucose >/= 200 mg/dl is diagnostic for diabetes. In the absence of unequivocal hyperglycemia, results should be confirmed by repeat testing. The classification and Diagnosis of Diabetes Diabetes Care 2021; 46: S19-S40. Current interpretive data was last revised 2022. Calcium 9.4 8.5 - 10.3 mg/dL DULCE MARIA ARANDA Blood 04/25/2025 8:14 PM CDT 04/25/2025 8:32 PM CDT us Dinorah Kahn NP LAB BLOOD ORDERABLES Final Result [facility] [place] [address] * XR Chest 1 View (04/25/2025 2:22 PM CDT) Anatomical Region Laterality Modality Body, Chest N/A Computed Radiogr aphy 04/25/2025 2:50 PM CDT Impressions 04/25/2025 3:15 PM CDT Comparison with 04/25/2025 8:15 AM. Left internal jugular [place]-Jayne catheter tip overlies the proximal right main pulmonary artery. Right peripherally inserted central venous catheter in the superior vena cava. Unchanged small bilateral pleural effusions with associated atelectasis. No pneumothorax. Stable cardiomediastinal silhouette. Dictated by: Magali Cotton MD The radiology attending physician has personally reviewed this study, and had reviewed and/or edited this written report and agrees with it. Electronically signed by: Jessica Jackson M.D. Narrative 04/25/2025 3:15 PM CDT EXAMINATION: 1 view chest radiograph Procedure Note Jessica Jackson MD - 04/25/2025 EXAMINATION: 1 view chest radiograph IMPRESSION: Comparison with 04/25/2025 8:15 AM. Left internal jugular [place]ne catheter tip overlies the proximal right main pulmonary artery. Right peripherally inserted central venous catheter in the superior vena cava. Unchanged small bilateral pleural effusions with associated atelectasis. No pneumothorax. Stable cardiomediastinal silhouette. Dictated by: Magali Cotton MD The radiology attending physician has personally reviewed this study, and had reviewed and/or edited this written report and agrees with it. Electronically signed by: Jessica Jackson M.D. Farida RuffChanda Flores SWEET POTATO DISINTEGRATOR IMG XR PROCEDURES Final Resu lt * XR Chest 1 View (04/25/2025 9:38 AM CDT) Anatomical Region Laterality Modality Body, Chest N/A Digital Radiogra phy 04/25/2025 11:2 7 AM CDT Impressions 04/25/2025 11:52 AM CDT The current study is compared with the prior radiograph dated 04/24/2025. Right peripherally inserted central venous catheter with tip overlying the superior vena cava. A [place]-Jayne catheter is in place, tip overlies the main pulmonary artery. Small bilateral pleural effusions and bibasilar atelectasis. The heart and mediastinal contours are stable. Dictated by: Neel Nelson MD The radiology attending physician has personally reviewed this study, and had reviewed and/or edited this written report and agrees with it. Electronically signed by: Jessica Jackson M.D. Narrative 04/25/2025 11:52 AM CDT EXAMINATION: 1 view chest radiograph Procedure Note Jessica Jackson MD - 04/25/2025 EXAMINATION: 1 view chest radiograph IMPRESSION: The current study is compared with the prior radiograph dated 04/24/2025. Right peripherally inserted central venous catheter with tip overlying the superior vena cava. A [place]Jayne catheter is in place, tip overlies the main pulmonary artery. Small bilateral pleural effusions and bibasilar atelectasis. The heart and mediastinal contours are stable. Dictated by: Neel Nelson MD The radiology attending physician has personally reviewed this study, and had reviewed and/or edited this written report and agrees with it. Electronically signed by: Jessica Jackson M.D. us Dinorah Kahn SWEET POTATO DISINTEGRATOR IMG XR PROCEDURES Final Res ult * Oxyhemoglobin, pulmonary artery (04/25/2025 8:42 AM CDT) Oxyhemoglobin, PA 71.0 % Comment: Interpretive Data No reference range established. Current interpretive data was last revised 2020. Blood 04/25/2025 8:42 AM CDT 04/25/2025 8:51 AM CDT us Wang Almaraz MD LAB BLOOD ORDERABLES Final R esult [facility] [place] [address] * (ABNORMAL) Hemoglobin total, pulmonary artery (04/25/2025 8:42 AM CDT) Pathologist [facility] Hemoglobin total, PA 12.7(L) 13.0 - 17.5 g/dL Blood 04/25/2025 8:42 AM CDT 04/25/2025 8:51 AM CDT us Wang Almaraz MD LAB BLOOD ORDERABLES Final R esult [facility] [place] [address] * eGFR (04/25/2025 8:42 AM CDT) eGFR 62 >=60 mL/min/1. 73 m2 Comment: Interpretive Data Reference Interval Normal >/= 90 mL/min/1.73m2 Mildly decreased* 60 - 89 mL/min/1.73m2 Mildly to moderately decreased 45 - 59 mL/min/1.73m2 Moderately to severely decreased 30 - 44 mL/min/1.73m2 Severely decreased 15 - 29 mL/min/1.73m2 Kidney Failure < 15 mL/min/1.73m2 *Relative to young adult level Estimated glomerular filtration rate is determined by the 2020 CKD-EPI equation recommended by the National Kidney Foundation (A Unifying Approach to GFR Estimation: Recommendations of the NKF-ASK Task Force on Reassessing the Inclusion of Race in Diagnosing Kidney Disease, JASN 2020). The CKD-EPI equation should not be used for patients with unstable renal function and has not been validated in children and those over 70. Current interpretive data was last reviewed 2021. Blood 04/25/2025 8:42 AM CDT 04/25/2025 9:03 AM CDT us Dinorah Kahn NP LAB BLOOD ORDERABLES Final Result Performing Organization Address City/[facility]/ZIP Co de Phone Number [facility] [place] [address] * Lactate, whole blood (04/25/2025 8:42 AM CDT) Pathologist [facility] Lactate, bld 1.7 0.7 - 2.0 mmol/L Blood 04/25/2025 8:42 AM CDT 04/25/2025 8:51 AM CDT Wang Almaraz MD LAB BLOOD ORDERABLES Final R esult Performing Organization Address City/[facility]/ZIP Co de Phone Number [facility] [place] [address] * (ABNORMAL) Basic metabolic panel (04/25/2025 8:42 AM CDT) Sodium 139 135 - 145 mmol/L Potassium, pl 3.8 3.3 - 4.9 mmol/L [facility] Chloride 100 97 - 110 mmol/L [facility] CO2 29 22 - 32 mmol/L [facility] Anion gap 10 2 - 15 mmol/L [facility] BUN 27(H) 6 - 25 mg/dL [facility] Creatinine 1.31(H) 0.80 - 1.30 mg/dL [facility] Glucose 183 70 - 199 mg/dL [facility] Comment: Interpretive Data Fasting glucose >/= 126 mg/dl is diagnostic for diabetes. Fasting is defined as no caloric intake for at least 8 hours. Fasting glucose between 100 mg/dl to 125 mg/dl is diagnostic of prediabetes. In a patient with classic symptoms of hyperglycemia or hyperglycemic crisis, a random glucose >/= 200 mg/dl is diagnostic for diabetes. In the absence of unequivocal hyperglycemia, results should be confirmed by repeat testing. The classification and Diagnosis of Diabetes Diabetes Care 2021; 46: S19-S40. Current interpretive data was last revised 2022. Calcium 9.4 8.5 - 10.3 mg/dL [facility] Blood 04/25/2025 8:42 AM CDT 04/25/2025 9:03 AM CDT Dinorah Kahn NP LAB BLOOD ORDERABLES Final Result Performing Organization Address [facility] Co de Phone Number [facility] [place] [address] * Potassium, whole blood (04/25/2025 6:47 AM CDT) Potassium, bld 3.9 3.3 - 4.9 mmol/L Blood 04/25/2025 6:47 AM CDT 04/25/2025 7:30 AM CDT Dinorah Kahn NP LAB BLOOD ORDERABLES Final Result Performing Organization Address City/[facility] de Phone Number [facility] [place] [address] * Oxyhemoglobin, pulmonary artery (04/24/2025 8:08 PM CDT) Oxyhemoglobin, PA 66.4 % Comment: Interpretive Data No reference range established. Current interpretive data was last revised 2020. Blood 04/24/2025 8:08 PM CDT 04/24/2025 8:18 PM CDT us Wang Almaraz MD LAB BLOOD ORDERABLES [facility] [place] [address] * Potassium, whole blood (04/24/2025 8:08 PM CDT) Potassium, bld 3.9 3.3 - 4.9 mmol/L Blood 04/24/2025 8:08 PM CDT 04/24/2025 8:18 PM CDT us Dinorah Kahn NP LAB BLOOD ORDERABLES Final Result Performing Organization Address City/[facility] Co de Phone Number [facility] [place] [address] * (ABNORMAL) eGFR (04/24/2025 8:08 PM CDT) eGFR 48(L) >=60 mL/min/1. 73 m2 Comment: Interpretive Data Reference Interval Normal >/= 90 mL/min/1.73m2 Mildly decreased* 60 - 89 mL/min/1.73m2 Mildly to moderately decreased 45 - 59 mL/min/1.73m2 Moderately to severely decreased 30 - 44 mL/min/1.73m2 Severely decreased 15 - 29 mL/min/1.73m2 Kidney Failure < 15 mL/min/1.73m2 *Relative to young adult level Estimated glomerular filtration rate is determined by the 2020 CKD-EPI equation recommended by the National Kidney Foundation (A Unifying Approach to GFR Estimation: Recommendations of the NKF-ASK Task Force on Reassessing the Inclusion of Race in Diagnosing Kidney Disease, JASN 2020). The CKD-EPI equation should not be used for patients with unstable renal function and has not been validated in children and those over 70. Current interpretive data was last reviewed 2021. Blood 04/24/2025 8:08 PM CDT 04/24/2025 8:22 PM CDT Dinorah Kahn NP LAB BLOOD ORDERABLES Final Result [facility] [place] [address] * Lactate, whole blood (04/24/2025 8:08 PM CDT) Lactate, bld 1.3 0.7 - 2.0 mmol/L Blood 04/24/2025 8:08 PM CDT 04/24/2025 8:18 PM CDT Wang Almaraz MD LAB BLOOD ORDERABLES Final R esult Performing Organization Address [facility] Co de Phone Number [facility] [place] [address] * (ABNORMAL) aPTT (04/24/2025 8:08 PM CDT) Pathologist [facility] aPTT 62(H) 28 - 38 sec Comment: Interpretive Data Heparin therapeutic range: 66.0 - 100.0 seconds. Range based on correlation with therapeutic heparin activity range of 0.3 - 0.7 Units/mL. Current interpretive data was last revised on 2023. Blood 04/24/2025 8:08 PM CDT 04/24/2025 8:22 PM CDT Narrative [facility] - 04/24/2025 8:51 PM CDT STAT PTT timing: - Draw 6 hours after heparin infusion initiation - Draw 6 hours after every dose change until 2 consecutive PTTs are therapeutic - Once 2 consecutive PTTs are therapeutic, obtain with daily labs until infusion is discontinued - - Restart every 6 hour lab draws and follow instructions accordingly if PTT is outside of therapeutic range Do not draw lab from IV line that is actively infusing heparin. Use the opposite arm. If arm with actively infusing heparin must be used, pause the infusion for at least 2 minutes, and draw specimen below the IV site. For patients with a central venous catheter (CVC), lab must be drawn peripherally (not from CVC). Libia Suarez SWEET POTATO DISINTEGRATOR LAB BLOOD ORDERABLES Final Re sult [facility] [place] [address] * (ABNORMAL) CBC without differential (04/24/2025 8:08 PM CDT) Pathologist [facility] WBC 8.38 3.80 - 9.90 K/cumm Hgb 12.8(L) 13.0 - 17.5 g/dL [facility] Hct 39.4 38.9 - 50.3 % [facility] Plt 206 150 - 400 K/cumm [facility] MPV 11.5 9.1 - 12.[address] [facility] RBC 4.73 4.30 - 5.80 M/cumm [facility] MCV 83.3 81.3 - 96.[address] [facility] MCH 27.1 27.1 - 33.[address] [facility] MCHC 32.5 32.3 - 35.7 g/dL [facility] RDW CV 15.9(H) 11.1 - 14.9 % [facility] RDW SD 48.4(H) 35.7 - 48.[address] [facility] NRBC abs 0.00 0.00 - 0.01 K/cumm [facility] Blood 04/24/2025 8:08 PM CDT 04/24/2025 8:21 PM CDT Libia Suarez SWEET POTATO DISINTEGRATOR LAB BLOOD ORDERABLES Final Re sult DULCE MARIA [facility] [place] [address] * Phosphorus (04/24/2025 8:08 PM CDT) Pathologist [facility] Phosphorus, pl 3.4 2.3 - 4.5 mg/dL Blood 04/24/2025 8:08 PM CDT 04/24/2025 8:22 PM CDT Libia Suarez NP LAB BLOOD ORDERABLES Final [facility] s[facility] [place] [address] * Magnesium (04/24/2025 8:08 PM CDT) Magnesium 2.0 1.4 - 2.5 mg/dL Blood 04/24/2025 8:08 PM CDT 04/24/2025 8:22 PM CDT Libia Suarez SWEET POTATO DISINTEGRATOR LAB BLOOD ORDERABLES Final Re sult Performing Organization Address [facility] Co de Phone Number [facility] [place] [address] * (ABNORMAL) Hepatic function panel (04/24/2025 8:08 PM CDT) Bilirubin, total 0.7 0.1 - 1.2 mg/dL Bilirubin, direct 0.3 0.1 - 0.3 mg/dL [facility] Protein, pl 6.5 6.5 - 8.5 g/dL [facility] Albumin 4.1 3.5 - 5.0 g/dL [facility] Alk phos 275(H) 40 - 130 Units/L [facility] ALT 21 7 - 55 Units/L [facility] AST 24 10 - 50 Units/L [facility] Blood 04/24/2025 8:08 PM CDT 04/24/2025 8:22 PM CDT Libia Suarez SWEET POTATO DISINTEGRATOR LAB BLOOD ORDERABLES Final Re sult Performing Organization Address City/[facility] Co de Phone Number [facility] [place] [address] * (ABNORMAL) Basic metabolic panel (04/24/2025 8:08 PM CDT) [facility] Sodium 136 135 - 145 mmol/L Potassium, pl 4.0 3.3 - 4.9 mmol/L [facility] Chloride 98 97 - 110 mmol/L [facility] CO2 28 22 - 32 mmol/L [facility] Anion gap 10 2 - 15 mmol/L [facility] BUN 30(H) 6 - 25 mg/dL [facility] Creatinine 1.63(H) 0.80 - 1.30 mg/dL [facility] Glucose 139 70 - 199 mg/dL [facility] Comment: Interpretive Data Fasting glucose >/= 126 mg/dl is diagnostic for diabetes. Fasting is defined as no caloric intake for at least 8 hours. Fasting glucose between 100 mg/dl to 125 mg/dl is diagnostic of prediabetes. In a patient with classic symptoms of hyperglycemia or hyperglycemic crisis, a random glucose >/= 200 mg/dl is diagnostic for diabetes. In the absence of unequivocal hyperglycemia, results should be confirmed by repeat testing. The classification and Diagnosis of Diabetes Diabetes Care 202; 46: S19-S40. Current interpretive data was last revised 2022. Calcium 9.4 8.5 - 10.3 mg/dL [facility] Blood 04/24/2025 8:08 PM CDT 04/24/2025 8:22 PM CDT us Dinorah Kahn NP LAB BLOOD ORDERABLES Final Result [facility] [place] [address] * XR Chest 1 View (04/24/2025 4:07 PM CDT) Anatomical Region Laterality Modality Body, Chest N/A Digital Radiogra phy 04/24/2025 4:47 PM CDT Impressions 04/24/2025 4:47 PM CDT The current study is compared with the prior radiograph dated 04/24/2025 at 1137 hours. [place]-Jayne catheter is been retracted to an appropriate position in the pulmonary outflow tract. A right PICC catheter is in place with tip overlying the superior vena cava.. The heart is mildly enlarged. There is no pneumothorax.. There are small bilateral pleural effusions but no pulmonary edema. No mass or lymphadenopathy. Electronically signed by: Jessica Jackson M.D. Narrative 04/24/2025 4:47 PM CDT EXAMINATION: 1 view chest radiograph Procedure Note Jessica Jackson MD - 04/24/2025 EXAMINATION: 1 view chest radiograph IMPRESSION: The current study is compared with the prior radiograph dated 04/24/2025 at 1137 hours. [place]-Jayne catheter is been retracted to an appropriate position in the pulmonary outflow tract. A right PICC catheter is in place with tip overlying the superior vena cava.. The heart is mildly enlarged. There is no pneumothorax.. There are small bilateral pleural effusions but no pulmonary edema. No mass or lymphadenopathy. Electronically signed by: Jessica Jackson M.D. Farida Flores SWEET POTATO DISINTEGRATOR IMG XR PROCEDURES Final Resu lt * XR Chest 1 View (04/24/2025 11:48 AM CDT) Anatomical Region Laterality Modality Body, Chest N/A Computed Radiogr aphy 04/24/2025 1:35 PM CDT Impressions 04/24/2025 1:42 PM CDT Comparison with 04/24/2025 10:23 AM. Unchanged position of left internal jugular [place]-Jayne catheter with tip in a right upper lobe segmental pulmonary artery. Right peripherally inserted central venous catheter tip at the superior cavoatrial junction. Unchanged small bilateral pleural effusions with associated atelectasis. No pneumothorax. Stable cardiac and mediastinal silhouette. Dictated by: Magali Cotton MD The radiology attending physician has personally reviewed this study, and had reviewed and/or edited this written report and agrees with it. Electronically signed by: Jessica Jackson M.D. Narrative 04/24/2025 1:42 PM CDT EXAMINATION: 1 view chest radiograph Procedure Note Jessica Jacksno MD - 04/24/2025 EXAMINATION: 1 view chest radiograph IMPRESSION: Comparison with 04/24/2025 10:23 AM. Unchanged position of left internal jugular [place]-Jayne catheter with tip in a right upper lobe segmental pulmonary artery. Right peripherally inserted central venous catheter tip at the superior cavoatrial junction. Unchanged small bilateral pleural effusions with associated atelectasis. No pneumothorax. Stable cardiac and mediastinal silhouette. Dictated by: Magali Cotton MD The radiology attending physician has personally reviewed this study, and had reviewed and/or edited this written report and agrees with it. Electronically signed by: Jessica Jackson M.D. us Farida Flores SWEET POTATO DISINTEGRATOR IMG XR PROCEDURES Final Resu lt * XR Chest 1 View (04/24/2025 10:39 AM CDT) Anatomical Region Laterality Modality Body, Chest N/A Computed Radiogr aphy 04/24/2025 11:0 1 AM CDT Impressions 04/24/2025 1:33 PM CDT Comparison with 04/23/2025. Interval advancement of the left internal jugular [place]-Jayne catheter with tip overlying a right upper lobe segmental pulmonary artery. Right peripherally inserted central venous catheter at the superior cavoatrial junction. Unchanged small bilateral pleural effusions with associated atelectasis. No pneumothorax. Stable cardiac and mediastinal silhouette. Dictated by: Magali Cotton MD The radiology attending physician has personally reviewed this study, and had reviewed and/or edited this written report and agrees with it. Electronically signed by: Toño Rawls M.D. Narrative 04/24/2025 1:33 PM CDT EXAMINATION: 1 view chest radiograph Procedure Note Toño Rawls MD - 04/24/2025 EXAMINATION: 1 view chest radiograph IMPRESSION: Comparison with 04/23/2025. Interval advancement of the left internal jugular [place]-Jayne catheter with tip overlying a right upper lobe segmental pulmonary artery. Right peripherally inserted central venous catheter at the superior cavoatrial junction. Unchanged small bilateral pleural effusions with associated atelectasis. No pneumothorax. Stable cardiac and mediastinal silhouette. Dictated by: Magali Cotton MD The radiology attending physician has personally reviewed this study, and had reviewed and/or edited this written report and agrees with it. Electronically signed by: Toño Rawls M.D. us Dinorah Kahn SWEET POTATO DISINTEGRATOR IMG XR PROCEDURES Final Res ult * Oxyhemoglobin, pulmonary artery (04/24/2025 8:54 AM CDT) Pathologist [facility] Oxyhemoglobin, PA 69.0 % Comment: Interpretive Data No reference range established. Current interpretive data was last revised 2020. Blood 04/24/2025 8:54 AM CDT 04/24/2025 9:11 AM CDT Wang Almaraz MD LAB BLOOD ORDERABLES Final R esult Performing Organization Address [facility] Co de Phone Number DULCE MARIA [facility] [place] [address] * (ABNORMAL) Hemoglobin total, pulmonary artery (04/24/2025 8:54 AM CDT) [facility] Hemoglobin total, PA 12.7(L) 13.0 - 17.5 g/dL Comment:Collection date/time has been modified to: 08:54:00. Previous collection date/time: 09:07:00. Blood 04/24/2025 8:54 AM CDT 04/24/2025 9:11 AM CDT Wang Almaraz MD LAB BLOOD ORDERABLES Edited Result - Final Performing Organization Address City/[facility] Co de Phone Number DULCE MARIA [facility] [place] [address] * eGFR (04/24/2025 8:54 AM CDT) [facility] eGFR 63 >=60 mL/min/1. 73 m2 Comment: Interpretive Data Reference Interval Normal >/= 90 mL/min/1.73m2 Mildly decreased* 60 - 89 mL/min/1.73m2 Mildly to moderately decreased 45 - 59 mL/min/1.73m2 Moderately to severely decreased 30 - 44 mL/min/1.73m2 Severely decreased 15 - 29 mL/min/1.73m2 Kidney Failure < 15 mL/min/1.73m2 *Relative to young adult level Estimated glomerular filtration rate is determined by the 2020 CKD-EPI equation recommended by the National Kidney Foundation (A Unifying Approach to GFR Estimation: Recommendations of the NKF-ASK Task Force on Reassessing the Inclusion of Race in Diagnosing Kidney Disease, JASN 2020). The CKD-EPI equation should not be used for patients with unstable renal function and has not been validated in children and those over 70. Current interpretive data was last reviewed 2021. Blood 04/24/2025 8:54 AM CDT 04/24/2025 9:11 AM CDT us Dinorah Kahn NP LAB BLOOD ORDERABLES Final Result DULCE MARIA [facility] [place] [address] * Lactate, whole blood (04/24/2025 8:54 AM CDT) Lactate, bld 2.0 0.7 - 2.0 mmol/L Blood 04/24/2025 8:54 AM CDT 04/24/2025 9:11 AM CDT us Wang Almaraz MD LAB BLOOD ORDERABLES Final R esult DULCE MARIA [facility] [place] [address] * (ABNORMAL) Basic metabolic panel (04/24/2025 8:54 AM CDT) Sodium 136 135 - 145 mmol/L Potassium, pl 4.3 3.3 - 4.9 mmol/L [facility] Chloride 100 97 - 110 mmol/L [facility] CO2 28 22 - 32 mmol/L [facility] Anion gap 8 2 - 15 mmol/L [facility] BUN 27(H) 6 - 25 mg/dL [facility] Creatinine 1.29 0.80 - 1.30 mg/dL [facility] Glucose 172 70 - 199 mg/dL [facility] Comment: Interpretive Data Fasting glucose >/= 126 mg/dl is diagnostic for diabetes. Fasting is defined as no caloric intake for at least 8 hours. Fasting glucose between 100 mg/dl to 125 mg/dl is diagnostic of prediabetes. In a patient with classic symptoms of hyperglycemia or hyperglycemic crisis, a random glucose >/= 200 mg/dl is diagnostic for diabetes. In the absence of unequivocal hyperglycemia, results should be confirmed by repeat testing. The classification and Diagnosis of Diabetes Diabetes Care 2021; 46: S19-S40. Current interpretive data was last revised 2022. Calcium 9.2 8.5 - 10.3 mg/dL [facility] Blood 04/24/2025 8:54 AM CDT 04/24/2025 9:11 AM CDT Dinorah Kahn SWEET POTATO DISINTEGRATOR LAB BLOOD ORDERABLES Final Result [facility] [place] [address] * Antibody identification (04/23/2025 10:44 PM CDT) Pathologist [facility] Antibody ID 1 Anti-CD38 Comment:Panreactive -CD38 on reagent RBCs reacting with anti-CD38 therapy. DTT treatment removes cell surface CD38 and allows detection of common clinically significant antibodies except those against Dilma antigens. TRANSFUSION 2015;55;[id number] Blood 04/23/2025 10:4 4 PM CDT 04/23/2025 10:44 PM CDT Libia Suarez SWEET POTATO DISINTEGRATOR LAB BLOOD BANK TEST ORDERABLE S Final Result [facility] [place] [address] * Oxyhemoglobin, pulmonary artery (04/23/2025 8:56 PM CDT) Pathologist [facility] Oxyhemoglobin, PA 70.1 % Comment: Interpretive Data No reference range established. Current interpretive data was last revised 2020. Blood 04/23/2025 8:56 PM CDT 04/23/2025 9:05 PM CDT us Wang Almaraz MD LAB BLOOD ORDERABLES Final R esult Performing Organization Address [facility] Co de Phone Number [facility] [place] [address] * Potassium, whole blood (04/23/2025 8:56 PM CDT) [facility] Potassium, bld 4.4 3.3 - 4.9 mmol/L Blood 04/23/2025 8:56 PM CDT 04/23/2025 9:05 PM CDT us Dinorah Kahn NP LAB BLOOD ORDERABLES Final Result Performing Organization Address [facility] Co de Phone Number [facility] [place] [address] * (ABNORMAL) eGFR (04/23/2025 8:56 PM CDT) [facility] eGFR 53(L) >=60 mL/min/1. 73 m2 Comment: Interpretive Data Reference Interval Normal >/= 90 mL/min/1.73m2 Mildly decreased* 60 - 89 mL/min/1.73m2 Mildly to moderately decreased 45 - 59 mL/min/1.73m2 Moderately to severely decreased 30 - 44 mL/min/1.73m2 Severely decreased 15 - 29 mL/min/1.73m2 Kidney Failure < 15 mL/min/1.73m2 *Relative to young adult level Estimated glomerular filtration rate is determined by the 2020 CKD-EPI equation recommended by the National Kidney Foundation (A Unifying Approach to GFR Estimation: Recommendations of the NKF-ASK Task Force on Reassessing the Inclusion of Race in Diagnosing Kidney Disease, JASN 2020). The CKD-EPI equation should not be used for patients with unstable renal function and has not been validated in children and those over 70. Current interpretive data was last reviewed 2021. Blood 04/23/2025 8:56 PM CDT 04/23/2025 9:14 PM CDT us Dinorah Kahn NP LAB BLOOD ORDERABLES Final Result [facility] [place] [address] * Lactate, whole blood (04/23/2025 8:56 PM CDT) Lactate, bld 1.0 0.7 - 2.0 mmol/L Blood 04/23/2025 8:56 PM CDT 04/23/2025 9:05 PM CDT us Wang Almaraz MD LAB BLOOD ORDERABLES Final R esult Performing Organization Address City/[facility]/ZIP Co de Phone Number [facility] [place] [address] * (ABNORMAL) aPTT (04/23/2025 8:56 PM CDT) aPTT 66(H) 28 - 38 sec Comment: Interpretive Data Heparin therapeutic range: 66.0 - 100.0 seconds. Range based on correlation with therapeutic heparin activity range of 0.3 - 0.7 Units/mL. Current interpretive data was last revised on 2023. Blood 04/23/2025 8:56 PM CDT 04/23/2025 9:07 PM CDT Narrative [facility] - 04/23/2025 9:38 PM CDT STAT PTT timing: - Draw 6 hours after heparin infusion initiation - Draw 6 hours after every dose change until 2 consecutive PTTs are therapeutic - Once 2 consecutive PTTs are therapeutic, obtain with daily labs until infusion is discontinued - - Restart every 6 hour lab draws and follow instructions accordingly if PTT is outside of therapeutic range Do not draw lab from IV line that is actively infusing heparin. Use the opposite arm. If arm with actively infusing heparin must be used, pause the infusion for at least 2 minutes, and draw specimen below the IV site. For patients with a central venous catheter (CVC), lab must be drawn peripherally (not from CVC). Libia Suarez SWEET POTATO DISINTEGRATOR LAB BLOOD ORDERABLES Final Re sult [facility] [place] [address] * (ABNORMAL) CBC without differential (04/23/2025 8:56 PM CDT) [facility] WBC 8.06 3.80 - 9.90 K/cumm Hgb 12.7(L) 13.0 - 17.5 g/dL [facility] Hct 39.8 38.9 - 50.3 % [facility] Plt 209 150 - 400 K/cumm [facility] MPV 11.3 9.1 - 12.[address] [facility] RBC 4.72 4.30 - 5.80 M/cumm [facility] MCV 84.3 81.3 - 96.[address] [facility] MCH 26.9(L) 27.1 - 33.[address] [facility] MCHC 31.9(L) 32.3 - 35.7 g/dL [facility] RDW CV 16.0(H) 11.1 - 14.9 % [facility] RDW SD 49.1(H) 35.7 - 48.[address] [facility] NRBC abs 0.00 0.00 - 0.01 K/cumm [facility] Blood 04/23/2025 8:56 PM CDT 04/23/2025 9:24 PM CDT Libia Suarez NP LAB BLOOD ORDERABLES Final Re sult Performing Organization Address [facility] Co de Phone Number [facility] [place] [address] * (ABNORMAL) Type and screen (04/23/2025 8:56 PM CDT) Pathologist [facility] ABO Rh O Positive Poppy, indirect Positive(A) [facility] Blood 04/23/2025 8:56 PM CDT 04/23/2025 9:22 PM CDT Narrative [facility] - 04/23/2025 10:44 PM CDT Has the patient had Daratumumab or Isatuximab in the past 6 months?->Unknown Libia Suarez NP LAB BLOOD BANK TEST ORDERABLE S Final Result Performing Organization Address [facility] Co de Phone Number [facility] [place] [address] * Phosphorus (04/23/2025 8:56 PM CDT) Pathologist [facility] Phosphorus, pl 4.1 2.3 - 4.5 mg/dL Blood 04/23/2025 8:56 PM CDT 04/23/2025 9:14 PM CDT Libia Suarez NP LAB BLOOD ORDERABLES Final Re sult Performing Organization Address [facility] [place] [address] * Magnesium (04/23/2025 8:56 PM CDT) Pathologist [facility] Magnesium 2.0 1.4 - 2.5 mg/dL Blood 04/23/2025 8:56 PM CDT 04/23/2025 9:14 PM CDT Libia Suarez SWEET POTATO DISINTEGRATOR LAB BLOOD ORDERABLES Final Re sult Performing Organization Address City/[facility] Co de Phone Number [facility] [place] [address] * (ABNORMAL) Hepatic function panel (04/23/2025 8:56 PM CDT) Pathologist [facility] Bilirubin, total 0.8 0.1 - 1.2 mg/dL Bilirubin, direct 0.3 0.1 - 0.3 mg/dL [facility] Protein, pl 6.4(L) 6.5 - 8.5 g/dL [facility] Albumin 3.9 3.5 - 5.0 g/dL [facility] Alk phos 274(H) 40 - 130 Units/L [facility] ALT 23 7 - 55 Units/L [facility] AST 27 10 - 50 Units/L [facility] Blood 04/23/2025 8:56 PM CDT 04/23/2025 9:14 PM CDT Libia Suarez SWEET POTATO DISINTEGRATOR LAB BLOOD ORDERABLES Final Re sult Performing Organization Address [facility] Co de Phone Number [facility] [place] [address] * (ABNORMAL) Basic metabolic panel (04/23/2025 8:56 PM CDT) Pathologist [facility] Sodium 136 135 - 145 mmol/L Potassium, pl 4.6 3.3 - 4.9 mmol/L [facility] Chloride 97 97 - 110 mmol/L [facility] CO2 28 22 - 32 mmol/L [facility] Anion gap 11 2 - 15 mmol/L [facility] BUN 32(H) 6 - 25 mg/dL [facility] Creatinine 1.49(H) 0.80 - 1.30 mg/dL [facility] Glucose 110 70 - 199 mg/dL [facility] Comment: Interpretive Data Fasting glucose >/= 126 mg/dl is diagnostic for diabetes. Fasting is defined as no caloric intake for at least 8 hours. Fasting glucose between 100 mg/dl to 125 mg/dl is diagnostic of prediabetes. In a patient with classic symptoms of hyperglycemia or hyperglycemic crisis, a random glucose >/= 200 mg/dl is diagnostic for diabetes. In the absence of unequivocal hyperglycemia, results should be confirmed by repeat testing. The classification and Diagnosis of Diabetes Diabetes Care 2021; 46: S19-S40. Current interpretive data was last revised 2022. Calcium 9.6 8.5 - 10.3 mg/dL [facility] Blood 04/23/2025 8:56 PM CDT 04/23/2025 9:14 PM CDT Dinorah Kahn NP LAB BLOOD ORDERABLES Final Result [facility] [place] [address] * Potassium, whole blood (04/23/2025 1:02 PM CDT) [facility] Potassium, bld 3.8 3.3 - 4.9 mmol/L Blood 04/23/2025 1:02 PM CDT 04/23/2025 1:15 PM CDT Dinorah Kahn NP LAB BLOOD ORDERABLES Final Result Performing Organization Address City/[facility]/ZIP Co de Phone Number [facility] [place] [address] * XR Chest 1 View (04/23/2025 10:09 AM CDT) Anatomical Region Laterality Modality Body, Chest N/A Computed Radiogr aphy 04/23/2025 11:4 2 AM CDT Impressions 04/23/2025 2:23 PM CDT Comparison with 04/22/2025. Left internal jugular [place] catheter tip is advanced and overlies the distal right interlobar pulmonary artery. Right peripherally inserted central venous catheter tip overlies the superior cavoatrial junction. Unchanged small bilateral pleural effusions with associated atelectasis. No pneumothorax. Stable cardiac mediastinal silhouette with thoracic aortic calcifications. Dictated by: Magali Cotton MD The radiology attending physician has personally reviewed this study, and had reviewed and/or edited this written report and agrees with it. Electronically signed by: Dmitry Armas MD, PHD Narrative 04/23/2025 2:23 PM CDT EXAMINATION: 1 view chest radiograph Procedure Note Dmitry Armas MD PhD - 04/23/2025 EXAMINATION: 1 view chest radiograph IMPRESSION: Comparison with 04/22/2025. Left internal jugular [place] catheter tip is advanced and overlies the distal right interlobar pulmonary artery. Right peripherally inserted central venous catheter tip overlies the superior cavoatrial junction. Unchanged small bilateral pleural effusions with associated atelectasis. No pneumothorax. Stable cardiac mediastinal silhouette with thoracic aortic calcifications. Dictated by: Magali Cotton MD The radiology attending physician has personally reviewed this study, and had reviewed and/or edited this written report and agrees with it. Electronically signed by: Dmitry Armas MD, PHD us Dinorah Kahn SWEET POTATO DISINTEGRATOR IMG XR PROCEDURES Final Res ult * Oxyhemoglobin, pulmonary artery (04/23/2025 8:36 AM CDT) Oxyhemoglobin, PA 68.3 % Comment: Interpretive Data No reference range established. Current interpretive data was last revised 2020. Blood 04/23/2025 8:36 AM CDT 04/23/2025 8:48 AM CDT us Wang Almaraz MD LAB BLOOD ORDERABLES Final R esult [facility] [place] [address] * Hemoglobin total, pulmonary artery (04/23/2025 8:36 AM CDT) Hemoglobin total, PA 13.2 13.0 - 17.5 g/dL Blood 04/23/2025 8:36 AM CDT 04/23/2025 8:49 AM CDT us Wang Almaraz MD LAB BLOOD ORDERABLES Final R esult Performing Organization Address [facility]/ZIP Co de Phone Number [facility] [place] [address] * eGFR (04/23/2025 8:36 AM CDT) [facility] eGFR 69 >=60 mL/min/1. 73 m2 Comment: Interpretive Data Reference Interval Normal >/= 90 mL/min/1.73m2 Mildly decreased* 60 - 89 mL/min/1.73m2 Mildly to moderately decreased 45 - 59 mL/min/1.73m2 Moderately to severely decreased 30 - 44 mL/min/1.73m2 Severely decreased 15 - 29 mL/min/1.73m2 Kidney Failure < 15 mL/min/1.73m2 *Relative to young adult level Estimated glomerular filtration rate is determined by the 2020 CKD-EPI equation recommended by the National Kidney Foundation (A Unifying Approach to GFR Estimation: Recommendations of the NKF-ASK Task Force on Reassessing the Inclusion of Race in Diagnosing Kidney Disease, JASN 2020). The CKD-EPI equation should not be used for patients with unstable renal function and has not been validated in children and those over 70. Current interpretive data was last reviewed 2021. Blood 04/23/2025 8:36 AM CDT 04/23/2025 8:51 AM CDT us Dinorah Kahn NP LAB BLOOD ORDERABLES Final Result Performing Organization Address [facility]/ZIP Co de Phone Number [facility] [place] [address] * (ABNORMAL) Lactate, whole blood (04/23/2025 8:36 AM CDT) Lactate, bld 2.4(H) 0.7 - 2.0 mmol/L Blood 04/23/2025 8:36 AM CDT 04/23/2025 8:48 AM CDT us Wang Almaraz MD LAB BLOOD ORDERABLES Final R esult Performing Organization Address City/[facility]/ZIP Co de Phone Number [facility] [place] [address] * (ABNORMAL) Basic metabolic panel (04/23/2025 8:36 AM CDT) [facility] Sodium 137 135 - 145 mmol/L Potassium, pl 3.9 3.3 - 4.9 mmol/L [facility] Chloride 100 97 - 110 mmol/L [facility] CO2 27 22 - 32 mmol/L [facility] Anion gap 10 2 - 15 mmol/L [facility] BUN 27(H) 6 - 25 mg/dL [facility] Creatinine 1.20 0.80 - 1.30 mg/dL [facility] Glucose 229(H) 70 - 199 mg/dL [facility] Comment: Interpretive Data Fasting glucose >/= 126 mg/dl is diagnostic for diabetes. Fasting is defined as no caloric intake for at least 8 hours. Fasting glucose between 100 mg/dl to 125 mg/dl is diagnostic of prediabetes. In a patient with classic symptoms of hyperglycemia or hyperglycemic crisis, a random glucose >/= 200 mg/dl is diagnostic for diabetes. In the absence of unequivocal hyperglycemia, results should be confirmed by repeat testing. The classification and Diagnosis of Diabetes Diabetes Care 2021; 46: S19-S40. Current interpretive data was last revised 2022. Calcium 9.3 8.5 - 10.3 mg/dL [facility] Blood 04/23/2025 8:36 AM CDT 04/23/2025 8:51 AM CDT us Dinorah Kahn NP LAB BLOOD ORDERABLES Final Result Performing Organization Address [facility] Co de Phone Number [facility] [place] [address] * (ABNORMAL) aPTT (04/23/2025 5:26 AM CDT) aPTT 62(H) 28 - 38 sec Comment: Interpretive Data Heparin therapeutic range: 66.0 - 100.0 seconds. Range based on correlation with therapeutic heparin activity range of 0.3 - 0.7 Units/mL. Current interpretive data was last revised on 2023. Blood 04/23/2025 5:26 AM CDT 04/23/2025 5:47 AM CDT Narrative [facility] - 04/23/2025 6:08 AM CDT STAT PTT timing: - Draw 6 hours after heparin infusion initiation - Draw 6 hours after every dose change until 2 consecutive PTTs are therapeutic - Once 2 consecutive PTTs are therapeutic, obtain with daily labs until infusion is discontinued - - Restart every 6 hour lab draws and follow instructions accordingly if PTT is outside of therapeutic range Do not draw lab from IV line that is actively infusing heparin. Use the opposite arm. If arm with actively infusing heparin must be used, pause the infusion for at least 2 minutes, and draw specimen below the IV site. For patients with a central venous catheter (CVC), lab must be drawn peripherally (not from CVC). us Libia Suarez NP LAB BLOOD ORDERABLES Final Re sult [facility] [place] [address] * Oxyhemoglobin, pulmonary artery (04/22/2025 8:40 PM CDT) Oxyhemoglobin, PA 66.8 % Comment: Interpretive Data No reference range established. Current interpretive data was last revised 2020. Blood 04/22/2025 8:40 PM CDT 04/22/2025 9:22 PM CDT us Wang Almaraz MD LAB BLOOD ORDERABLES Final R esult Performing Organization Address City/[facility]/ZIP Co de Phone Number [facility] [place] [address] * Hemoglobin total, pulmonary artery (04/22/2025 8:40 PM CDT) Hemoglobin total, PA 13.6 13.0 - 17.5 g/dL Blood 04/22/2025 8:40 PM CDT 04/22/2025 9:22 PM CDT us Wang Almaraz MD LAB BLOOD ORDERABLES Final R esult Performing Organization Address [facility] Co de Phone Number [facility] [place] [address] * eGFR (04/22/2025 8:40 PM CDT) eGFR 67 >=60 mL/min/1. 73 m2 Comment: Interpretive Data Reference Interval Normal >/= 90 mL/min/1.73m2 Mildly decreased* 60 - 89 mL/min/1.73m2 Mildly to moderately decreased 45 - 59 mL/min/1.73m2 Moderately to severely decreased 30 - 44 mL/min/1.73m2 Severely decreased 15 - 29 mL/min/1.73m2 Kidney Failure < 15 mL/min/1.73m2 *Relative to young adult level Estimated glomerular filtration rate is determined by the 2020 CKD-EPI equation recommended by the National Kidney Foundation (A Unifying Approach to GFR Estimation: Recommendations of the NKF-ASK Task Force on Reassessing the Inclusion of Race in Diagnosing Kidney Disease, JASN 2020). The CKD-EPI equation should not be used for patients with unstable renal function and has not been validated in children and those over 70. Current interpretive data was last reviewed 2021. Blood 04/22/2025 8:40 PM CDT 04/22/2025 9:26 PM CDT us Dinorah Kahn NP LAB BLOOD ORDERABLES Final Result [facility] [place] [address] * Lactate, whole blood (04/22/2025 8:40 PM CDT) [facility] Lactate, bld 1.0 0.7 - 2.0 mmol/L Blood 04/22/2025 8:40 PM CDT 04/22/2025 9:22 PM CDT us Wang Almaraz MD LAB BLOOD ORDERABLES Final R esult Performing Organization Address [facility] Co de Phone Number [facility] [place] [address] * (ABNORMAL) CBC without differential (04/22/2025 8:40 PM CDT) [facility] WBC 7.99 3.80 - 9.90 K/cumm Hgb 13.4 13.0 - 17.5 g/dL [facility] Hct 40.5 38.9 - 50.3 % [facility] Plt 217 150 - 400 K/cumm [facility] MPV 11.6 9.1 - 12.[address] [facility] RBC 4.89 4.30 - 5.80 M/cumm [facility] MCV 82.8 81.3 - 96.[address] [facility] MCH 27.4 27.1 - 33.[address] [facility] MCHC 33.1 32.3 - 35.7 g/dL [facility] RDW CV 16.1(H) 11.1 - 14.9 % [facility] RDW SD 48.5(H) 35.7 - 48.[address] [facility] NRBC abs 0.00 0.00 - 0.01 K/cumm [facility] Blood 04/22/2025 8:40 PM CDT 04/22/2025 9:27 PM CDT us Libia Suarez SWEET POTATO DISINTEGRATOR LAB BLOOD ORDERABLES Final Re sult Performing Organization Address [facility] Co de Phone Number [facility] [place] [address] * Phosphorus (04/22/2025 8:40 PM CDT) Pathologist [facility] Phosphorus, pl 3.6 2.3 - 4.5 mg/dL Blood 04/22/2025 8:40 PM CDT 04/22/2025 9:26 PM CDT Libia Suarez NP LAB BLOOD ORDERABLES Final Re sult Performing Organization Address [facility] Co de Phone Number [facility] [place] [address] * Magnesium (04/22/2025 8:40 PM CDT) [facility] Magnesium 2.2 1.4 - 2.5 mg/dL Blood 04/22/2025 8:40 PM CDT 04/22/2025 9:26 PM CDT Libia Suarez SWEET POTATO DISINTEGRATOR LAB BLOOD ORDERABLES Final Re sult Performing Organization Address [facility] Co de Phone Number [facility] [place] [address] * (ABNORMAL) Hepatic function panel (04/22/2025 8:40 PM CDT) [facility] Bilirubin, total 0.7 0.1 - 1.2 mg/dL Bilirubin, direct 0.2 0.1 - 0.3 mg/dL [facility] Protein, pl 6.3(L) 6.5 - 8.5 g/dL [facility] Albumin 3.9 3.5 - 5.0 g/dL [facility] Alk phos 255(H) 40 - 130 Units/L [facility] ALT 20 7 - 55 Units/L [facility] AST 33 10 - 50 Units/L [facility] Blood 04/22/2025 8:40 PM CDT 04/22/2025 9:26 PM CDT Libia Suarez SWEET POTATO DISINTEGRATOR LAB BLOOD ORDERABLES Final Re sult [facility] [place] [address] * (ABNORMAL) Basic metabolic panel (04/22/2025 8:40 PM CDT) [facility] Sodium 136 135 - 145 mmol/L Potassium, pl 4.4 3.3 - 4.9 mmol/L [facility] Chloride 97 97 - 110 mmol/L [facility] CO2 26 22 - 32 mmol/L [facility] Anion gap 13 2 - 15 mmol/L [facility] BUN 32(H) 6 - 25 mg/dL [facility] Creatinine 1.23 0.80 - 1.30 mg/dL [facility] Glucose 105 70 - 199 mg/dL [facility] Comment: Interpretive Data Fasting glucose >/= 126 mg/dl is diagnostic for diabetes. Fasting is defined as no caloric intake for at least 8 hours. Fasting glucose between 100 mg/dl to 125 mg/dl is diagnostic of prediabetes. In a patient with classic symptoms of hyperglycemia or hyperglycemic crisis, a random glucose >/= 200 mg/dl is diagnostic for diabetes. In the absence of unequivocal hyperglycemia, results should be confirmed by repeat testing. The classification and Diagnosis of Diabetes Diabetes Care 202; 46: S19-S40. Current interpretive data was last revised 2022. Calcium 9.2 8.5 - 10.3 mg/dL [facility] Blood 04/22/2025 8:40 PM CDT 04/22/2025 9:26 PM CDT Dinorah Kahn SWEET POTATO DISINTEGRATOR LAB BLOOD ORDERABLES Final Result Performing Organization Address [facility]/ZIP Co de Phone Number [facility] [place] [address] * (ABNORMAL) Potassium, whole blood (04/22/2025 2:15 PM CDT) Potassium, bld 5.1(H) 3.3 - 4.9 mmol/L Blood 04/22/2025 2:15 PM CDT 04/22/2025 2:38 PM CDT us Dinorah Kahn SWEET POTATO DISINTEGRATOR LAB BLOOD ORDERABLES Final Result [facility] [place] [address] * XR Chest 1 View (04/22/2025 8:43 AM CDT) Anatomical Region Laterality Modality Body, Chest N/A Computed Radiogr aphy 04/22/2025 10:5 4 AM CDT Impressions 04/22/2025 11:12 AM CDT The current study is compared with the prior radiograph dated 04/21/2025. A [place]ne catheter is in place, tip overlies the right pulmonary artery. Right upper extremity peripherally inserted central catheter terminates over the superior vena cava. Stable cardiomegaly. Small amount of right ambar-fissural fluid. Mild bibasilar atelectasis. Trace bilateral pleural effusions. No pulmonary consolidation or pneumothorax. Dictated by: Neel Nelson MD The radiology attending physician has personally reviewed this study, and had reviewed and/or edited this written report and agrees with it. Electronically signed by: Juanito Brandt M.D. Narrative 04/22/2025 11:12 AM CDT EXAMINATION: 1 view chest radiograph Procedure Note Juanito Brandt MD - 04/22/2025 EXAMINATION: 1 view chest radiograph IMPRESSION: The current study is compared with the prior radiograph dated 04/21/2025. A [place] catheter is in place, tip overlies the right pulmonary artery. Right upper extremity peripherally inserted central catheter terminates over the superior vena cava. Stable cardiomegaly. Small amount of right ambar-fissural fluid. Mild bibasilar atelectasis. Trace bilateral pleural effusions. No pulmonary consolidation or pneumothorax. Dictated by: Neel Nelson MD The radiology attending physician has personally reviewed this study, and had reviewed and/or edited this written report and agrees with it. Electronically signed by: Juanito Brandt M.D. us Dinorah Kahn SWEET POTATO DISINTEGRATOR IMG XR PROCEDURES Final Res ult * Oxyhemoglobin, pulmonary artery (04/22/2025 7:35 AM CDT) Oxyhemoglobin, PA 68.3 % Comment: Interpretive Data No reference range established. Current interpretive data was last revised 2020. Blood 04/22/2025 7:35 AM CDT 04/22/2025 7:46 AM CDT us Wang Almaraz MD LAB BLOOD ORDERABLES Final R esult DULCE MARIA [facility] [place] [address] * Hemoglobin total, pulmonary artery (04/22/2025 7:35 AM CDT) Hemoglobin total, PA 13.0 13.0 - 17.5 g/dL Blood 04/22/2025 7:35 AM CDT 04/22/2025 7:46 AM CDT us Wang Almaraz MD LAB BLOOD ORDERABLES Final R esult DULCE MARIA [facility] [place] [address] * Potassium, whole blood (04/22/2025 7:35 AM CDT) Potassium, bld 3.9 3.3 - 4.9 mmol/L Blood 04/22/2025 7:35 AM CDT 04/22/2025 7:46 AM CDT Dinorah Kahn NP LAB BLOOD ORDERABLES Final Result Performing Organization Address City/[facility] Co de Phone Number DULCE MARIA ARANDA [facility] [place] [address] * eGFR (04/22/2025 7:35 AM CDT) eGFR 63 >=60 mL/min/1. 73 m2 Comment: Interpretive Data Reference Interval Normal >/= 90 mL/min/1.73m2 Mildly decreased* 60 - 89 mL/min/1.73m2 Mildly to moderately decreased 45 - 59 mL/min/1.73m2 Moderately to severely decreased 30 - 44 mL/min/1.73m2 Severely decreased 15 - 29 mL/min/1.73m2 Kidney Failure < 15 mL/min/1.73m2 *Relative to young adult level Estimated glomerular filtration rate is determined by the 2020 CKD-EPI equation recommended by the National Kidney Foundation (A Unifying Approach to GFR Estimation: Recommendations of the NKF-ASK Task Force on Reassessing the Inclusion of Race in Diagnosing Kidney Disease, JASN 2020). The CKD-EPI equation should not be used for patients with unstable renal function and has not been validated in children and those over 70. Current interpretive data was last reviewed 2021. Blood 04/22/2025 7:35 AM CDT 04/22/2025 8:29 AM CDT us Dinorah Kahn NP LAB BLOOD ORDERABLES Final Result Performing Organization Address City/[facility]/ZIP Co de Phone Number DULCE MARIA [facility] [place] [address] * Lactate, whole blood (04/22/2025 7:35 AM CDT) Lactate, bld 0.7 0.7 - 2.0 mmol/L Blood 04/22/2025 7:35 AM CDT 04/22/2025 7:46 AM CDT us Wang Almaraz MD LAB BLOOD ORDERABLES Final R esult [facility] [place] [address] * (ABNORMAL) Basic metabolic panel (04/22/2025 7:35 AM CDT) [facility] Sodium 137 135 - 145 mmol/L Potassium, pl 4.1 3.3 - 4.9 mmol/L [facility] Chloride 100 97 - 110 mmol/L [facility] CO2 27 22 - 32 mmol/L [facility] Anion gap 10 2 - 15 mmol/L [facility] BUN 30(H) 6 - 25 mg/dL [facility] Creatinine 1.29 0.80 - 1.30 mg/dL [facility] Glucose 103 70 - 199 mg/dL [facility] Comment: Interpretive Data Fasting glucose >/= 126 mg/dl is diagnostic for diabetes. Fasting is defined as no caloric intake for at least 8 hours. Fasting glucose between 100 mg/dl to 125 mg/dl is diagnostic of prediabetes. In a patient with classic symptoms of hyperglycemia or hyperglycemic crisis, a random glucose >/= 200 mg/dl is diagnostic for diabetes. In the absence of unequivocal hyperglycemia, results should be confirmed by repeat testing. The classification and Diagnosis of Diabetes Diabetes Care 2021; 46: S19-S40. Current interpretive data was last revised 2022. Calcium 9.3 8.5 - 10.3 mg/dL [facility] Blood 04/22/2025 7:35 AM CDT 04/22/2025 8:29 AM CDT us Dinorah Kahn NP LAB BLOOD ORDERABLES Final Result Performing Organization Address [facility]/ZIP Co de Phone Number [facility] [place] [address] * Oxyhemoglobin, pulmonary artery (04/21/2025 10:13 PM CDT) Oxyhemoglobin, PA 60.6 % Comment: Interpretive Data No reference range established. Current interpretive data was last revised 2020. Blood 04/21/2025 10:1 3 PM CDT 04/21/2025 10:44 PM CDT Wang Almaraz MD LAB BLOOD ORDERABLES [facility] [place] [address] * Hemoglobin total, pulmonary artery (04/21/2025 10:13 PM CDT) Pathologist [facility] Hemoglobin total, PA 13.7 13.0 - 17.5 g/dL Blood 04/21/2025 10:1 3 PM CDT 04/21/2025 10:44 PM CDT us Wang Almaraz MD LAB BLOOD ORDERABLES Final R esult Performing Organization Address City/State/[facility] Co de Phone Number [facility] [place] [address] * (ABNORMAL) eGFR (04/21/2025 10:13 PM CDT) Pathologist [facility] eGFR 53(L) >=60 mL/min/1. 73 m2 Comment: Interpretive Data Reference Interval Normal >/= 90 mL/min/1.73m2 Mildly decreased* 60 - 89 mL/min/1.73m2 Mildly to moderately decreased 45 - 59 mL/min/1.73m2 Moderately to severely decreased 30 - 44 mL/min/1.73m2 Severely decreased 15 - 29 mL/min/1.73m2 Kidney Failure < 15 mL/min/1.73m2 *Relative to young adult level Estimated glomerular filtration rate is determined by the 2020 CKD-EPI equation recommended by the National Kidney Foundation (A Unifying Approach to GFR Estimation: Recommendations of the NKF-ASK Task Force on Reassessing the Inclusion of Race in Diagnosing Kidney Disease, JASN 2020). The CKD-EPI equation should not be used for patients with unstable renal function and has not been validated in children and those over 70. Current interpretive data was last reviewed 2021. Blood 04/21/2025 10:1 3 PM CDT 04/21/2025 10:54 PM CDT us Dinorah Kahn NP LAB BLOOD ORDERABLES Final Result Performing Organization Address [facility] Co de Phone Number [facility] [place] [address] * Lactate, whole blood (04/21/2025 10:13 PM CDT) Lactate, bld 1.0 0.7 - 2.0 mmol/L Blood 04/21/2025 10:1 3 PM CDT 04/21/2025 10:44 PM CDT us Wang Almaraz MD LAB BLOOD ORDERABLES Final R esult Performing Organization Address [facility] de Phone Number [facility] [place] [address] * (ABNORMAL) aPTT (04/21/2025 10:13 PM CDT) aPTT 60(H) 28 - 38 sec Comment: Interpretive Data Heparin therapeutic range: 66.0 - 100.0 seconds. Range based on correlation with therapeutic heparin activity range of 0.3 - 0.7 Units/mL. Current interpretive data was last revised on 2023. Blood 04/21/2025 10:1 3 PM CDT 04/21/2025 10:55 PM CDT Narrative DULCE MARIA [facility] - 04/21/2025 11:21 PM CDT STAT PTT timing: - Draw 6 hours after heparin infusion initiation - Draw 6 hours after every dose change until 2 consecutive PTTs are therapeutic - Once 2 consecutive PTTs are therapeutic, obtain with daily labs until infusion is discontinued - - Restart every 6 hour lab draws and follow instructions accordingly if PTT is outside of therapeutic range Do not draw lab from IV line that is actively infusing heparin. Use the opposite arm. If arm with actively infusing heparin must be used, pause the infusion for at least 2 minutes, and draw specimen below the IV site. For patients with a central venous catheter (CVC), lab must be drawn peripherally (not from CVC). Libia Suarez NP LAB BLOOD ORDERABLES Final Re sult [facility] [place] [address] * (ABNORMAL) CBC without differential (04/21/2025 10:13 PM CDT) [facility] WBC 8.41 3.80 - 9.90 K/cumm Hgb 12.8(L) 13.0 - 17.5 g/dL [facility] Hct 39.7 38.9 - 50.3 % [facility] Plt 207 150 - 400 K/cumm [facility] MPV 11.9 9.1 - 12.[address] [facility] RBC 4.73 4.30 - 5.80 M/cumm [facility] MCV 83.9 81.3 - 96.[address] [facility] MCH 27.1 27.1 - 33.[address] [facility] MCHC 32.2(L) 32.3 - 35.7 g/dL [facility] RDW CV 15.9(H) 11.1 - 14.9 % [facility] RDW SD 49.0(H) 35.7 - 48.[address] [facility] NRBC abs 0.00 0.00 - 0.01 K/cumm [facility] Blood 04/21/2025 10:1 3 PM CDT 04/21/2025 10:55 PM CDT Libia Suarez NP LAB BLOOD ORDERABLES Final Re sult Performing Organization Address City/[facility]/ZIP Co de Phone Number [facility] [place] [address] * Phosphorus (04/21/2025 10:13 PM CDT) Pathologist [facility] Phosphorus, pl 3.9 2.3 - 4.5 mg/dL Blood 04/21/2025 10:1 3 PM CDT 04/21/2025 10:54 PM CDT Libia Suarez SWEET POTATO DISINTEGRATOR LAB BLOOD ORDERABLES Final Re sult Performing Organization Address City/[facility]/[place] [address] * Magnesium (04/21/2025 10:13 PM CDT) Pathologist [facility] Magnesium 2.5 1.4 - 2.5 mg/dL Blood 04/21/2025 10:1 3 PM CDT 04/21/2025 10:54 PM CDT Libia Suarez SWEET POTATO DISINTEGRATOR LAB BLOOD ORDERABLES Final Re sult Performing Organization Address City/[facility] [place] [address] * (ABNORMAL) Hepatic function panel (04/21/2025 10:13 PM CDT) Pathologist [facility] Bilirubin, total 0.6 0.1 - 1.2 mg/dL Bilirubin, direct 0.3 0.1 - 0.3 mg/dL [facility] Protein, pl 6.2(L) 6.5 - 8.5 g/dL [facility] Albumin 3.9 3.5 - 5.0 g/dL [facility] Alk phos 245(H) 40 - 130 Units/L [facility] ALT 20 7 - 55 Units/L [facility] AST 25 10 - 50 Units/L [facility] Blood 04/21/2025 10:1 3 PM CDT 04/21/2025 10:54 PM CDT Libia Suarez SWEET POTATO DISINTEGRATOR LAB BLOOD ORDERABLES Final Re sult [facility] [place] [address] * (ABNORMAL) Basic metabolic panel (04/21/2025 10:13 PM CDT) Pathologist [facility] Sodium 135 135 - 145 mmol/L Potassium, pl 4.5 3.3 - 4.9 mmol/L [facility] Chloride 98 97 - 110 mmol/L [facility] CO2 27 22 - 32 mmol/L [facility] Anion gap 10 2 - 15 mmol/L [facility] BUN 35(H) 6 - 25 mg/dL [facility] Creatinine 1.51(H) 0.80 - 1.30 mg/dL [facility] Glucose 131 70 - 199 mg/dL [facility] Comment: Interpretive Data Fasting glucose >/= 126 mg/dl is diagnostic for diabetes. Fasting is defined as no caloric intake for at least 8 hours. Fasting glucose between 100 mg/dl to 125 mg/dl is diagnostic of prediabetes. In a patient with classic symptoms of hyperglycemia or hyperglycemic crisis, a random glucose >/= 200 mg/dl is diagnostic for diabetes. In the absence of unequivocal hyperglycemia, results should be confirmed by repeat testing. The classification and Diagnosis of Diabetes Diabetes Care 2021; 46: S19-S40. Current interpretive data was last revised 2022. Calcium 9.4 8.5 - 10.3 mg/dL [facility] Blood 04/21/2025 10:1 3 PM CDT 04/21/2025 10:54 PM CDT Dinorah Kanh SWEET POTATO DISINTEGRATOR LAB BLOOD ORDERABLES Final Result [facility] [place] [address] * Potassium, whole blood (04/21/2025 2:54 PM CDT) Potassium, bld 4.3 3.3 - 4.9 mmol/L Blood 04/21/2025 2:54 PM CDT 04/21/2025 3:01 PM CDT Dinorah Kahn NP LAB BLOOD ORDERABLES Final Result DULCE MARIA [facility] [place] [address] * XR Chest 1 View (04/21/2025 10:55 AM CDT) Anatomical Region Laterality Modality Body, Chest N/A Digital Radiogra phy 04/21/2025 1:00 PM CDT Impressions 04/21/2025 1:00 PM CDT Comparison 04/20/2025 8:55 AM. [place]-Jayne catheter tip projects over the right interlobar pulmonary artery, unchanged. Small right basilar pleural effusion and mild right base atelectasis again noted. No focal consolidation or pulmonary edema seen. No pneumothorax seen. Electronically signed by: Miguel Angel Ng M.D. Narrative 04/21/2025 1:00 PM CDT EXAMINATION: 1 view chest radiograph Procedure Note Miguel Angel Ng MD - 04/21/2025 EXAMINATION: 1 view chest radiograph IMPRESSION: Comparison 04/20/2025 8:55 AM. [place]-Jayne catheter tip projects over the right interlobar pulmonary artery, unchanged. Small right basilar pleural effusion and mild right base atelectasis again noted. No focal consolidation or pulmonary edema seen. No pneumothorax seen. Electronically signed by: Miguel Angel gN M.D. Dinorah Kahn NP IMG XR PROCEDURES Final Res ult * Oxyhemoglobin, pulmonary artery (04/21/2025 8:41 AM CDT) Oxyhemoglobin, PA 69.1 % Comment: Interpretive Data No reference range established. Current interpretive data was last revised 2020. Blood 04/21/2025 8:41 AM CDT 04/21/2025 8:51 AM CDT Wang Almaraz MD LAB BLOOD ORDERABLES Final R esult Performing Organization Address [facility] Co de Phone Number [facility] [place] [address] * Hemoglobin total, pulmonary artery (04/21/2025 8:41 AM CDT) Hemoglobin total, PA 14.0 13.0 - 17.5 g/dL Blood 04/21/2025 8:41 AM CDT 04/21/2025 8:51 AM CDT Wang Almaraz MD LAB BLOOD ORDERABLES Final R esult Performing Organization Address [facility] de Phone Number [facility] [place] [address] * Oxyhemoglobin, pulmonary artery (04/21/2025 8:39 AM CDT) Oxyhemoglobin, PA 70.5 % Comment: Interpretive Data No reference range established. Current interpretive data was last revised 2020. Blood 04/21/2025 8:39 AM CDT 04/21/2025 8:51 AM CDT Wang Almaraz MD LAB BLOOD ORDERABLES Final R esult Performing Organization Address [facility] Co de Phone Number [facility] [place] [address] * eGFR (04/21/2025 8:39 AM CDT) eGFR 65 >=60 mL/min/1. 73 m2 Comment: Interpretive Data Reference Interval Normal >/= 90 mL/min/1.73m2 Mildly decreased* 60 - 89 mL/min/1.73m2 Mildly to moderately decreased 45 - 59 mL/min/1.73m2 Moderately to severely decreased 30 - 44 mL/min/1.73m2 Severely decreased 15 - 29 mL/min/1.73m2 Kidney Failure < 15 mL/min/1.73m2 *Relative to young adult level Estimated glomerular filtration rate is determined by the 2020 CKD-EPI equation recommended by the National Kidney Foundation (A Unifying Approach to GFR Estimation: Recommendations of the NKF-ASK Task Force on Reassessing the Inclusion of Race in Diagnosing Kidney Disease, JASN 2020). The CKD-EPI equation should not be used for patients with unstable renal function and has not been validated in children and those over 70. Current interpretive data was last reviewed 2021. Blood 04/21/2025 8:39 AM CDT 04/21/2025 9:00 AM CDT us Dinorah Kahn SWEET POTATO DISINTEGRATOR LAB BLOOD ORDERABLES Final Result [facility] Department of [facility] [place], [place] [id number] * Lactate, whole blood (04/21/2025 8:39 AM CDT) Lactate, bld 1.5 0.7 - 2.0 mmol/L Blood 04/21/2025 8:39 AM CDT 04/21/2025 8:51 AM CDT us Wang Almaraz MD LAB BLOOD ORDERABLES Final R esult [facility] [place] [address] * (ABNORMAL) Basic metabolic panel (04/21/2025 8:39 AM CDT) Sodium 137 135 - 145 mmol/L Potassium, pl 4.8 3.3 - 4.9 mmol/L [facility] Chloride 99 97 - 110 mmol/L [facility] CO2 27 22 - 32 mmol/L [facility] Anion gap 11 2 - 15 mmol/L [facility] BUN 31(H) 6 - 25 mg/dL [facility] Creatinine 1.27 0.80 - 1.30 mg/dL [facility] Glucose 179 70 - 199 mg/dL [facility] Comment: Interpretive Data Fasting glucose >/= 126 mg/dl is diagnostic for diabetes. Fasting is defined as no caloric intake for at least 8 hours. Fasting glucose between 100 mg/dl to 125 mg/dl is diagnostic of prediabetes. In a patient with classic symptoms of hyperglycemia or hyperglycemic crisis, a random glucose >/= 200 mg/dl is diagnostic for diabetes. In the absence of unequivocal hyperglycemia, results should be confirmed by repeat testing. The classification and Diagnosis of Diabetes Diabetes Care 2021; 46: S19-S40. Current interpretive data was last revised 2022. Calcium 9.9 8.5 - 10.3 mg/dL [facility] Blood 04/21/2025 8:39 AM CDT 04/21/2025 9:00 AM CDT Dinorah Kahn NP LAB BLOOD ORDERABLES Final Result [facility] [place] [address] * Potassium, whole blood (04/21/2025 4:39 AM CDT) [facility] Potassium, bld 3.9 3.3 - 4.9 mmol/L Blood 04/21/2025 4:39 AM CDT 04/21/2025 4:51 AM CDT Dinorah Kahn NP LAB BLOOD ORDERABLES Final Result [facility] [place] [address] * Antibody identification (04/20/2025 10:54 PM CDT) Antibody ID 1 Anti-CD38 Comment:Panreactive -CD38 on reagent RBCs reacting with anti-CD38 therapy. DTT treatment removes cell surface CD38 and allows detection of common clinically significant antibodies except those against [place] antigens. TRANSFUSION 2015;55;[id number] Blood 04/20/2025 10:5 4 PM CDT 04/20/2025 10:54 PM CDT us Libia Suarez NP LAB BLOOD BANK TEST ORDERABLE S Final Result Performing Organization Address [facility] Co de Phone Number [facility] [place] [address] * Oxyhemoglobin, pulmonary artery (04/20/2025 9:19 PM CDT) Oxyhemoglobin, PA 66.7 % Comment: Interpretive Data No reference range established. Current interpretive data was last revised 2020. Blood 04/20/2025 9:19 PM CDT 04/20/2025 9:28 PM CDT Wang Almaraz MD LAB BLOOD ORDERABLES Final R esult Performing Organization Address [facility] Co de Phone Number [facility] [place] [address] * Hemoglobin total, pulmonary artery (04/20/2025 9:19 PM CDT) Hemoglobin total, PA 14.0 13.0 - 17.5 g/dL Blood 04/20/2025 9:19 PM CDT 04/20/2025 9:28 PM CDT Wang Almaraz MD LAB BLOOD ORDERABLES Final R esult Performing Organization Address City/[facility]/ZIP Co de Phone Number [facility] [place] [address] * (ABNORMAL) eGFR (04/20/2025 9:19 PM CDT) eGFR 54(L) >=60 mL/min/1. 73 m2 Comment: Interpretive Data Reference Interval Normal >/= 90 mL/min/1.73m2 Mildly decreased* 60 - 89 mL/min/1.73m2 Mildly to moderately decreased 45 - 59 mL/min/1.73m2 Moderately to severely decreased 30 - 44 mL/min/1.73m2 Severely decreased 15 - 29 mL/min/1.73m2 Kidney Failure < 15 mL/min/1.73m2 *Relative to young adult level Estimated glomerular filtration rate is determined by the 2020 CKD-EPI equation recommended by the National Kidney Foundation (A Unifying Approach to GFR Estimation: Recommendations of the NKF-ASK Task Force on Reassessing the Inclusion of Race in Diagnosing Kidney Disease, JASN 2020). The CKD-EPI equation should not be used for patients with unstable renal function and has not been validated in children and those over 70. Current interpretive data was last reviewed 2021. Blood 04/20/2025 9:19 PM CDT 04/20/2025 9:31 PM CDT us Dinorah Kahn NP LAB BLOOD ORDERABLES Final Result Performing Organization Address City/[facility]/ZIP Co de Phone Number [facility] [place] [address] * Lactate, whole blood (04/20/2025 9:19 PM CDT) Lactate, bld 0.8 0.7 - 2.0 mmol/L Blood 04/20/2025 9:19 PM CDT 04/20/2025 9:28 PM CDT us Wang Almaraz MD LAB BLOOD ORDERABLES Final R esult DULCE MARIA [facility] [place] [address] * (ABNORMAL) aPTT (04/20/2025 9:19 PM CDT) [facility] aPTT 62(H) 28 - 38 sec Comment: Interpretive Data Heparin therapeutic range: 66.0 - 100.0 seconds. Range based on correlation with therapeutic heparin activity range of 0.3 - 0.7 Units/mL. Current interpretive data was last revised on 2023. Blood 04/20/2025 9:19 PM CDT 04/20/2025 9:35 PM CDT Narrative [facility] - 04/20/2025 9:44 PM CDT STAT PTT timing: - Draw 6 hours after heparin infusion initiation - Draw 6 hours after every dose change until 2 consecutive PTTs are therapeutic - Once 2 consecutive PTTs are therapeutic, obtain with daily labs until infusion is discontinued - - Restart every 6 hour lab draws and follow instructions accordingly if PTT is outside of therapeutic range Do not draw lab from IV line that is actively infusing heparin. Use the opposite arm. If arm with actively infusing heparin must be used, pause the infusion for at least 2 minutes, and draw specimen below the IV site. For patients with a central venous catheter (CVC), lab must be drawn peripherally (not from CVC). Libia Suarez SWEET POTATO DISINTEGRATOR LAB BLOOD ORDERABLES Final Re sult [facility] [place] [address] * (ABNORMAL) CBC without differential (04/20/2025 9:19 PM CDT) [facility] WBC 8.03 3.80 - 9.90 K/cumm Hgb 13.2 13.0 - 17.5 g/dL [facility] Hct 41.3 38.9 - 50.3 % [facility] Plt 197 150 - 400 K/cumm [facility] MPV 11.1 9.1 - 12.[address] [facility] RBC 4.94 4.30 - 5.80 M/cumm [facility] MCV 83.6 81.3 - 96.[address] [facility] MCH 26.7(L) 27.1 - 33.[address] [facility] MCHC 32.0(L) 32.3 - 35.7 g/dL [facility] RDW CV 16.1(H) 11.1 - 14.9 % [facility] RDW SD 48.8(H) 35.7 - 48.[address] [facility] NRBC abs 0.00 0.00 - 0.01 K/cumm [facility] Blood 04/20/2025 9:19 PM CDT 04/20/2025 9:31 PM CDT Libia Suarez NP LAB BLOOD ORDERABLES Final Re sult Performing Organization Address [facility]/ZIP Co de Phone Number [facility] [place] [address] * (ABNORMAL) Type and screen (04/20/2025 9:19 PM CDT) ABO Rh O Positive Poppy, indirect Positive(A) [facility] Blood 04/20/2025 9:19 PM CDT 04/20/2025 9:32 PM CDT Narrative [facility] - 04/20/2025 10:54 PM CDT Has the patient had Daratumumab or Isatuximab in the past 6 months?->Unknown Libia Suarez NP LAB BLOOD BANK TEST ORDERABLE S Final Result [facility] [place] [address] * Phosphorus (04/20/2025 9:19 PM CDT) Phosphorus, pl 4.4 2.3 - 4.5 mg/dL Blood 04/20/2025 9:19 PM CDT 04/20/2025 9:31 PM CDT Libia Suarez SWEET POTATO DISINTEGRATOR LAB BLOOD ORDERABLES Final Re sult [facility] [place] [address] * Magnesium (04/20/2025 9:19 PM CDT) Pathologist [facility] Magnesium 2.0 1.4 - 2.5 mg/dL Blood 04/20/2025 9:19 PM CDT 04/20/2025 9:31 PM CDT Libia Suarez SWEET POTATO DISINTEGRATOR LAB BLOOD ORDERABLES Final Re sult Performing Organization Address [facility] Co de Phone Number [facility] [place] [address] * (ABNORMAL) Hepatic function panel (04/20/2025 9:19 PM CDT) [facility] Bilirubin, total 0.7 0.1 - 1.2 mg/dL Bilirubin, direct 0.3 0.1 - 0.3 mg/dL [facility] Protein, pl 6.7 6.5 - 8.5 g/dL [facility] Albumin 4.1 3.5 - 5.0 g/dL [facility] Alk phos 254(H) 40 - 130 Units/L [facility] ALT 21 7 - 55 Units/L [facility] AST 26 10 - 50 Units/L [facility] Blood 04/20/2025 9:19 PM CDT 04/20/2025 9:31 PM CDT Libia Suarez SWEET POTATO DISINTEGRATOR LAB BLOOD [place] [address] * (ABNORMAL) Basic metabolic panel (04/20/2025 9:19 PM CDT) Pathologist [facility] Sodium 137 135 - 145 mmol/L Potassium, pl 4.3 3.3 - 4.9 mmol/L [facility] Chloride 100 97 - 110 mmol/L [facility] CO2 28 22 - 32 mmol/L [facility] Anion gap 9 2 - 15 mmol/L [facility] BUN 34(H) 6 - 25 mg/dL [facility] Creatinine 1.47(H) 0.80 - 1.30 mg/dL [facility] Glucose 119 70 - 199 mg/dL [facility] Comment: Interpretive Data Fasting glucose >/= 126 mg/dl is diagnostic for diabetes. Fasting is defined as no caloric intake for at least 8 hours. Fasting glucose between 100 mg/dl to 125 mg/dl is diagnostic of prediabetes. In a patient with classic symptoms of hyperglycemia or hyperglycemic crisis, a random glucose >/= 200 mg/dl is diagnostic for diabetes. In the absence of unequivocal hyperglycemia, results should be confirmed by repeat testing. The classification and Diagnosis of Diabetes Diabetes Care 2021; 46: S19-S40. Current interpretive data was last revised 2022. Calcium 9.4 8.5 - 10.3 mg/dL [facility] Blood 04/20/2025 9:19 PM CDT 04/20/2025 9:31 PM CDT Dinorah Kahn NP LAB BLOOD ORDERABLES Final Result Performing Organization Address [facility] Co de Phone Number [facility] [place] [address] * Potassium, whole blood (04/20/2025 4:11 PM CDT) Pathologist [facility] Potassium, bld 4.1 3.3 - 4.9 mmol/L Blood 04/20/2025 4:11 PM CDT 04/20/2025 4:21 PM CDT Dinorah Kahn NP LAB BLOOD ORDERABLES Final Result Performing Organization Address [facility]/ZIP Co de Phone Number [facility] [place] [address] * Hemoglobin total, pulmonary artery (04/20/2025 9:47 AM CDT) Hemoglobin total, PA 13.1 13.0 - 17.5 g/dL Blood 04/20/2025 9:47 AM CDT 04/20/2025 10:00 AM CDT Wang Almaraz MD LAB BLOOD ORDERABLES Final R esult Performing Organization Address [facility] [place] [address] * Oxyhemoglobin, pulmonary artery (04/20/2025 9:46 AM CDT) Oxyhemoglobin, PA 70.6 % Comment: Interpretive Data No reference range established. Current interpretive data was last revised 2020. Blood 04/20/2025 9:46 AM CDT 04/20/2025 10:00 AM CDT Wang Almaraz MD LAB BLOOD ORDERABLES Final R esult Performing Organization Address [facility] Co de Phone Number DULCE MARIA [facility] [place] [address] * eGFR (04/20/2025 9:46 AM CDT) eGFR 64 >=60 mL/min/1. 73 m2 Comment: Interpretive Data Reference Interval Normal >/= 90 mL/min/1.73m2 Mildly decreased* 60 - 89 mL/min/1.73m2 Mildly to moderately decreased 45 - 59 mL/min/1.73m2 Moderately to severely decreased 30 - 44 mL/min/1.73m2 Severely decreased 15 - 29 mL/min/1.73m2 Kidney Failure < 15 mL/min/1.73m2 *Relative to young adult level Estimated glomerular filtration rate is determined by the 2020 CKD-EPI equation recommended by the National Kidney Foundation (A Unifying Approach to GFR Estimation: Recommendations of the NKF-ASK Task Force on Reassessing the Inclusion of Race in Diagnosing Kidney Disease, JASN 202). The CKD-EPI equation should not be used for patients with unstable renal function and has not been validated in children and those over 70. Current interpretive data was last reviewed 2021. Blood 04/20/2025 9:46 AM CDT 04/20/2025 10:03 AM CDT us Dinorah Kahn NP LAB BLOOD ORDERABLES Final Result Performing Organization Address City/[facility]/ZIP Co de Phone Number [facility] [place] [address] * Lactate, whole blood (04/20/2025 9:46 AM CDT) Pathologist [facility] Lactate, bld 1.5 0.7 - 2.0 mmol/L Blood 04/20/2025 9:46 AM CDT 04/20/2025 10:00 AM CDT us Wang Almaraz MD LAB BLOOD ORDERABLES Final R esult Performing Organization Address [facility] Co de Phone Number [facility] [place] [address] * (ABNORMAL) Basic metabolic panel (04/20/2025 9:46 AM CDT) Sodium 137 135 - 145 mmol/L Potassium, pl 4.2 3.3 - 4.9 mmol/L [facility] Chloride 99 97 - 110 mmol/L [facility] CO2 26 22 - 32 mmol/L [facility] Anion gap 12 2 - 15 mmol/L [facility] BUN 29(H) 6 - 25 mg/dL [facility] Creatinine 1.28 0.80 - 1.30 mg/dL [facility] Glucose 166 70 - 199 mg/dL [facility] Comment: Interpretive Data Fasting glucose >/= 126 mg/dl is diagnostic for diabetes. Fasting is defined as no caloric intake for at least 8 hours. Fasting glucose between 100 mg/dl to 125 mg/dl is diagnostic of prediabetes. In a patient with classic symptoms of hyperglycemia or hyperglycemic crisis, a random glucose >/= 200 mg/dl is diagnostic for diabetes. In the absence of unequivocal hyperglycemia, results should be confirmed by repeat testing. The classification and Diagnosis of Diabetes Diabetes Care 2021; 46: S19-S40. Current interpretive data was last revised 2022. Calcium 9.5 8.5 - 10.3 mg/dL DULCE MARIA [facility] Blood 04/20/2025 9:46 AM CDT 04/20/2025 10:03 AM CDT Dinorah Kahn NP LAB BLOOD ORDERABLES Final Result [facility] [place] [address] * XR Chest 1 View (04/20/2025 9:02 AM CDT) Anatomical Region Laterality Modality Body, Chest N/A Computed Radiogr aphy 04/20/2025 10:4 8 PM CDT Impressions 04/20/2025 10:48 PM CDT A right peripherally inserted central venous catheter terminates at the superior cavoatrial junction. A left internal jugular [place] catheter terminates at the right interlobar pulmonary artery. Small bilateral pleural effusions are present. There is minimal bibasilar atelectasis with some superimposed mild reticulonodular opacities which may represent a component of aspiration. No pneumothorax is identified. The cardiomediastinal silhouette is unchanged. Electronically signed by: Raman Saavedra M.D. Narrative 04/20/2025 10:48 PM CDT EXAMINATION: XR CHEST 1 VIEW COMPARISON: 04/18/2025 8:53 AM Procedure Note Raman Saavedra MD PhD - 04/20/2025 EXAMINATION: XR CHEST 1 VIEW COMPARISON: 04/18/2025 8:53 AM IMPRESSION: A right peripherally inserted central venous catheter terminates at the superior cavoatrial junction. A left internal jugular [place]ne catheter terminates at the right interlobar pulmonary artery. Small bilateral pleural effusions are present. There is minimal bibasilar atelectasis with some superimposed mild reticulonodular opacities which may represent a component of aspiration. No pneumothorax is identified. The cardiomediastinal silhouette is unchanged. Electronically signed by: Raman Saavedra M.D. Dinorah Kahn SWEET POTATO DISINTEGRATOR IMG XR PROCEDURES Final Res ult * Oxyhemoglobin, pulmonary artery (04/19/2025 9:41 PM CDT) Oxyhemoglobin, PA 66.0 % Comment: Interpretive Data No reference range established. Current interpretive data was last revised 2020. Blood 04/19/2025 9:41 PM CDT 04/19/2025 9:54 PM CDT Wang Almaraz MD LAB BLOOD ORDERABLES Final R esult DULCE MAR[facility] [place] [address] * Hemoglobin total, pulmonary artery (04/19/2025 9:41 PM CDT) [facility] Hemoglobin total, PA 14.2 13.0 - 17.5 g/dL Blood 04/19/2025 9:41 PM CDT 04/19/2025 9:54 PM CDT Wang Almaraz MD LAB BLOOD ORDERABLES Final R esult DULCE MARIA [facility] [place] [address] * eGFR (04/19/2025 9:41 PM CDT) Pathologist [facility] eGFR 61 >=60 mL/min/1. 73 m2 Comment: Interpretive Data Reference Interval Normal >/= 90 mL/min/1.73m2 Mildly decreased* 60 - 89 mL/min/1.73m2 Mildly to moderately decreased 45 - 59 mL/min/1.73m2 Moderately to severely decreased 30 - 44 mL/min/1.73m2 Severely decreased 15 - 29 mL/min/1.73m2 Kidney Failure < 15 mL/min/1.73m2 *Relative to young adult level Estimated glomerular filtration rate is determined by the 2020 CKD-EPI equation recommended by the National Kidney Foundation (A Unifying Approach to GFR Estimation: Recommendations of the NKF-ASK Task Force on Reassessing the Inclusion of Race in Diagnosing Kidney Disease, JASN 2020). The CKD-EPI equation should not be used for patients with unstable renal function and has not been validated in children and those over 70. Current interpretive data was last reviewed 2021. Blood 04/19/2025 9:41 PM CDT 04/19/2025 10:08 PM CDT us Dinorah Kahn NP LAB BLOOD ORDERABLES Final Result Performing Organization Address City/[facility] Co de Phone Number [facility] [place] [address] * (ABNORMAL) Lactate, whole blood (04/19/2025 9:41 PM CDT) Lactate, bld 0.6(L) 0.7 - 2.0 mmol/L Blood 04/19/2025 9:41 PM CDT 04/19/2025 9:54 PM CDT us Wang Almaraz MD LAB BLOOD ORDERABLES Final R esult DULCE MARIA [facility] [place] [address] * (ABNORMAL) aPTT (04/19/2025 9:41 PM CDT) aPTT 58(H) 28 - 38 sec Comment: Interpretive Data Heparin therapeutic range: 66.0 - 100.0 seconds. Range based on correlation with therapeutic heparin activity range of 0.3 - 0.7 Units/mL. Current interpretive data was last revised on 2023. Blood 04/19/2025 9:41 PM CDT 04/19/2025 10:02 PM CDT Narrative [facility] - 04/19/2025 10:12 PM CDT STAT PTT timing: - Draw 6 hours after heparin infusion initiation - Draw 6 hours after every dose change until 2 consecutive PTTs are therapeutic - Once 2 consecutive PTTs are therapeutic, obtain with daily labs until infusion is discontinued - - Restart every 6 hour lab draws and follow instructions accordingly if PTT is outside of therapeutic range Do not draw lab from IV line that is actively infusing heparin. Use the opposite arm. If arm with actively infusing heparin must be used, pause the infusion for at least 2 minutes, and draw specimen below the IV site. For patients with a central venous catheter (CVC), lab must be drawn peripherally (not from CVC). us Libia Suarez SWEET POTATO DISINTEGRATOR LAB BLOOD ORDERABLES Final Re sult [facility] [place] [address] * (ABNORMAL) CBC without differential (04/19/2025 9:41 PM CDT) [facility] WBC 7.79 3.80 - 9.90 K/cumm Hgb 13.3 13.0 - 17.5 g/dL [facility] Hct 41.2 38.9 - 50.3 % [facility] Plt 205 150 - 400 K/cumm [facility] MPV 11.6 9.1 - 12.[address] [facility] RBC 4.93 4.30 - 5.80 M/cumm [facility] MCV 83.6 81.3 - 96.[address] [facility] MCH 27.0(L) 27.1 - 33.[address] [facility] MCHC 32.3 32.3 - 35.7 g/dL [facility] RDW CV 16.1(H) 11.1 - 14.9 % [facility] RDW SD 49.0(H) 35.7 - 48.[address] [facility] NRBC abs 0.00 0.00 - 0.01 K/cumm [facility] Blood 04/19/2025 9:41 PM CDT 04/19/2025 9:57 PM CDT Libia Suarez SWEET POTATO DISINTEGRATOR LAB BLOOD ORDERABLES Final Re sult Performing Organization Address City/[facility] Co de Phone Number [facility] [place] [address] * (ABNORMAL) Phosphorus (04/19/2025 9:41 PM CDT) Phosphorus, pl 4.8(H) 2.3 - 4.5 mg/dL Blood 04/19/2025 9:41 PM CDT 04/19/2025 9:56 PM CDT Libia Suarez SWEET POTATO DISINTEGRATOR LAB BLOOD ORDERABLES Final Re sult Performing Organization Address [facility] Co de Phone Number [facility] [place] [address] * Magnesium (04/19/2025 9:41 PM CDT) Pathologist [facility] Magnesium 2.0 1.4 - 2.5 mg/dL Blood 04/19/2025 9:41 PM CDT 04/19/2025 9:56 PM CDT Libia Suarez SWEET POTATO DISINTEGRATOR LAB BLOOD ORDERABLES Final Re sult Performing Organization Address [facility] Co de Phone Number [facility] [place] [address] * (ABNORMAL) Hepatic function panel (04/19/2025 9:41 PM CDT) Bilirubin, total 0.7 0.1 - 1.2 mg/dL Bilirubin, direct 0.3 0.1 - 0.3 mg/dL [facility] Protein, pl 6.6 6.5 - 8.5 g/dL [facility] Albumin 4.0 3.5 - 5.0 g/dL [facility] Alk phos 245(H) 40 - 130 Units/L [facility] ALT 22 7 - 55 Units/L [facility] AST 25 10 - 50 Units/L [facility] Blood 04/19/2025 9:41 PM CDT 04/19/2025 9:56 PM CDT Libia Suarez SWEET POTATO DISINTEGRATOR LAB BLOOD ORDERABLES Final Re sult [facility] [place] [address] * (ABNORMAL) Basic metabolic panel (04/19/2025 9:41 PM CDT) [facility] Sodium 135 135 - 145 mmol/L Potassium, pl 4.4 3.3 - 4.9 mmol/L [facility] Chloride 99 97 - 110 mmol/L [facility] CO2 26 22 - 32 mmol/L [facility] Anion gap 10 2 - 15 mmol/L [facility] BUN 32(H) 6 - 25 mg/dL [facility] Creatinine 1.34(H) 0.80 - 1.30 mg/dL [facility] Glucose 124 70 - 199 mg/dL [facility] Comment: Interpretive Data Fasting glucose >/= 126 mg/dl is diagnostic for diabetes. Fasting is defined as no caloric intake for at least 8 hours. Fasting glucose between 100 mg/dl to 125 mg/dl is diagnostic of prediabetes. In a patient with classic symptoms of hyperglycemia or hyperglycemic crisis, a random glucose >/= 200 mg/dl is diagnostic for diabetes. In the absence of unequivocal hyperglycemia, results should be confirmed by repeat testing. The classification and Diagnosis of Diabetes Diabetes Care 2021; 46: S19-S40. Current interpretive data was last revised 2022. Calcium 9.8 8.5 - 10.3 mg/dL [facility] Blood 04/19/2025 9:41 PM CDT 04/19/2025 9:56 PM CDT Dinorah Kahn SWEET POTATO DISINTEGRATOR LAB BLOOD ORDERABLES Final Result Performing Organization Address [facility] Co de Phone Number [facility] [place] [address] * Infection Prevention Shady auris PCR, surveillance Axilla/Groin (04/19/2025 2:06 PM CDT) Shady auris DNA Not Detected Not Detected [facility] Comment: Interpretive Data Testing performed by [facility] using the Lucas carlos [id number] Shady auris assay. This assay detects DNA from Shady auris using Real-Time PCR. This assay is laboratory developed and is not cleared by the [employer] Food and Drug Administration. The performance characteristics have been verified by the [facility]. Axilla/Groin 04/19/2025 2:06 PM CDT 04/19/2025 2:56 PM CDT Narrative [facility] - 04/20/2025 2:56 AM CDT Order placed by [facility] due to ring surveillance. Result [facility] Instant Order Generic Provider LAB MICROBIOLOGY - GENERAL ORDERABLES Final Result Performing Organization Address [facility] Co de Phone Number [facility] [place] [address] [facility] * Oxyhemoglobin, pulmonary artery (04/19/2025 9:05 AM CDT) Oxyhemoglobin, PA 69.3 % Comment: Interpretive Data No reference range established. Current interpretive data was last revised 2020. Blood 04/19/2025 9:05 AM CDT 04/19/2025 9:50 AM CDT us Wang Almaraz MD LAB BLOOD ORDERABLES Final R esult [facility] [place] [address] * Hemoglobin total, pulmonary artery (04/19/2025 9:05 AM CDT) Hemoglobin total, PA 13.1 13.0 - 17.5 g/dL Blood 04/19/2025 9:05 AM CDT 04/19/2025 10:08 AM CDT Wang Almaraz MD LAB BLOOD ORDERABLES Final R esult Performing Organization Address City/[facility] Co de Phone Number DULCE MARIA [facility] [place] [address] * eGFR (04/19/2025 9:05 AM CDT) eGFR 67 >=60 mL/min/1. 73 m2 Comment: Interpretive Data Reference Interval Normal >/= 90 mL/min/1.73m2 Mildly decreased* 60 - 89 mL/min/1.73m2 Mildly to moderately decreased 45 - 59 mL/min/1.73m2 Moderately to severely decreased 30 - 44 mL/min/1.73m2 Severely decreased 15 - 29 mL/min/1.73m2 Kidney Failure < 15 mL/min/1.73m2 *Relative to young adult level Estimated glomerular filtration rate is determined by the 2020 CKD-EPI equation recommended by the National Kidney Foundation (A Unifying Approach to GFR Estimation: Recommendations of the NKF-ASK Task Force on Reassessing the Inclusion of Race in Diagnosing Kidney Disease, JASN 2020). The CKD-EPI equation should not be used for patients with unstable renal function and has not been validated in children and those over 70. Current interpretive data was last reviewed 2021. Blood 04/19/2025 9:05 AM CDT 04/19/2025 10:33 AM CDT us Dinorah Kahn NP LAB BLOOD ORDERABLES Final Result [facility] [place] [address] * Lactate, whole blood (04/19/2025 9:05 AM CDT) [facility] Lactate, bld 1.7 0.7 - 2.0 mmol/L Blood 04/19/2025 9:05 AM CDT 04/19/2025 9:58 AM CDT Wang Almaraz MD LAB BLOOD ORDERABLES Final R esult Performing Organization Address [facility] Co de Phone Number [facility] [place] [address] * Basic metabolic panel (04/19/2025 9:05 AM CDT) [facility] Sodium 136 135 - 145 mmol/L Potassium, pl 4.3 3.3 - 4.9 mmol/L [facility] Chloride 99 97 - 110 mmol/L [facility] CO2 27 22 - 32 mmol/L [facility] Anion gap 10 2 - 15 mmol/L [facility] BUN 25 6 - 25 mg/dL [facility] Creatinine 1.24 0.80 - 1.30 mg/dL [facility] Glucose 189 70 - 199 mg/dL [facility] Comment: Interpretive Data Fasting glucose >/= 126 mg/dl is diagnostic for diabetes. Fasting is defined as no caloric intake for at least 8 hours. Fasting glucose between 100 mg/dl to 125 mg/dl is diagnostic of prediabetes. In a patient with classic symptoms of hyperglycemia or hyperglycemic crisis, a random glucose >/= 200 mg/dl is diagnostic for diabetes. In the absence of unequivocal hyperglycemia, results should be confirmed by repeat testing. The classification and Diagnosis of Diabetes Diabetes Care 2021; 46: S19-S40. Current interpretive data was last revised 2022. Calcium 9.5 8.5 - 10.3 mg/dL [facility] Blood 04/19/2025 9:05 AM CDT 04/19/2025 10:33 AM CDT Dinorah Kahn NP LAB BLOOD ORDERABLES Final Result Performing Organization Address [facility] Co de Phone Number [facility] [place] [address] * Oxyhemoglobin, pulmonary artery (04/18/2025 9:09 PM CDT) Oxyhemoglobin, PA 79.1 % Comment: Interpretive Data No reference range established. Current interpretive data was last revised 2020. Blood 04/18/2025 9:09 PM CDT 04/18/2025 9:37 PM CDT Wang Almaraz MD LAB BLOOD ORDERABLES Final R esult Performing Organization Address [facility] de Phone Number [facility] [place] [address] * (ABNORMAL) aPTT (04/18/2025 9:09 PM CDT) aPTT 55(H) 28 - 38 sec Comment: Interpretive Data Heparin therapeutic range: 66.0 - 100.0 seconds. Range based on correlation with therapeutic heparin activity range of 0.3 - 0.7 Units/mL. Current interpretive data was last revised on 2023. Blood 04/18/2025 9:09 PM CDT 04/18/2025 9:56 PM CDT Narrative [facility] - 04/18/2025 10:07 PM CDT STAT PTT timing: - Draw 6 hours after heparin infusion initiation - Draw 6 hours after every dose change until 2 consecutive PTTs are therapeutic - Once 2 consecutive PTTs are therapeutic, obtain with daily labs until infusion is discontinued - - Restart every 6 hour lab draws and follow instructions accordingly if PTT is outside of therapeutic range Do not draw lab from IV line that is actively infusing heparin. Use the opposite arm. If arm with actively infusing heparin must be used, pause the infusion for at least 2 minutes, and draw specimen below the IV site. For patients with a central venous catheter (CVC), lab must be drawn peripherally (not from CVC). Libia Suarez NP LAB BLOOD ORDERABLES Final Re sult Performing Organization Address [facility] Co de Phone Number [facility] [place] [address] * eGFR (04/18/2025 9:08 PM CDT) [facility] eGFR 60 >=60 mL/min/1. 73 m2 Comment: Interpretive Data Reference Interval Normal >/= 90 mL/min/1.73m2 Mildly decreased* 60 - 89 mL/min/1.73m2 Mildly to moderately decreased 45 - 59 mL/min/1.73m2 Moderately to severely decreased 30 - 44 mL/min/1.73m2 Severely decreased 15 - 29 mL/min/1.73m2 Kidney Failure < 15 mL/min/1.73m2 *Relative to young adult level Estimated glomerular filtration rate is determined by the 2020 CKD-EPI equation recommended by the National Kidney Foundation (A Unifying Approach to GFR Estimation: Recommendations of the NKF-ASK Task Force on Reassessing the Inclusion of Race in Diagnosing Kidney Disease, JASN 2020). The CKD-EPI equation should not be used for patients with unstable renal function and has not been validated in children and those over 70. Current interpretive data was last reviewed 2021. Blood 04/18/2025 9:08 PM CDT 04/18/2025 9:47 PM CDT Libia Suarez NP LAB BLOOD ORDERABLES Final Re sult Performing Organization Address [facility] Co de Phone Number DULCE MARIA [facility] [place] [address] * Lactate, whole blood (04/18/2025 9:08 PM CDT) [facility] Lactate, bld 1.0 0.7 - 2.0 mmol/L Blood 04/18/2025 9:08 PM CDT 04/18/2025 9:37 PM CDT Wang Almaraz MD LAB BLOOD ORDERABLES Final R esult Performing Organization Address [facility] Co de Phone Number [facility] [place] [address] * (ABNORMAL) CBC without differential (04/18/2025 9:08 PM CDT) [facility] WBC 7.97 3.80 - 9.90 K/cumm Hgb 13.2 13.0 - 17.5 g/dL [facility] Hct 40.6 38.9 - 50.3 % [facility] Plt 188 150 - 400 K/cumm [facility] MPV 11.5 9.1 - 12.[address] [facility] RBC 4.90 4.30 - 5.80 M/cumm [facility] MCV 82.9 81.3 - 96.[address] [facility] MCH 26.9(L) 27.1 - 33.[address] [facility] MCHC 32.5 32.3 - 35.7 g/dL [facility] RDW CV 16.2(H) 11.1 - 14.9 % [facility] RDW SD 48.8(H) 35.7 - 48.[address] [facility] NRBC abs 0.00 0.00 - 0.01 K/cumm [facility] Blood 04/18/2025 9:08 PM CDT 04/18/2025 9:47 PM CDT Libia Suarez SWEET POTATO DISINTEGRATOR LAB BLOOD ORDERABLES Final Re sult Performing Organization Address [facility] Co de Phone Number [facility] [place] [address] * Phosphorus (04/18/2025 9:08 PM CDT) [facility] Phosphorus, pl 4.1 2.3 - 4.5 mg/dL Blood 04/18/2025 9:08 PM CDT 04/18/2025 9:47 PM CDT Libia Suarez NP LAB BLOOD ORDERABLES Final Re sult Performing Organization Address [facility]/ZIP Co de Phone Number [facility] [place] [address] * Magnesium (04/18/2025 9:08 PM CDT) [facility] Magnesium 2.1 1.4 - 2.5 mg/dL Blood 04/18/2025 9:08 PM CDT 04/18/2025 9:47 PM CDT Libia Suarez NP LAB BLOOD ORDERABLES Final Re sult Performing Organization Address [facility] de Phone Number [facility] [place] [address] * (ABNORMAL) Hepatic function panel (04/18/2025 9:08 PM CDT) [facility] Bilirubin, total 0.7 0.1 - 1.2 mg/dL Bilirubin, direct 0.3 0.1 - 0.3 mg/dL [facility] Protein, pl 6.6 6.5 - 8.5 g/dL [facility] Albumin 4.0 3.5 - 5.0 g/dL [facility] Alk phos 229(H) 40 - 130 Units/L [facility] ALT 19 7 - 55 Units/L [facility] AST 25 10 - 50 Units/L [facility] Blood 04/18/2025 9:08 PM CDT 04/18/2025 9:47 PM CDT Libia Suarez SWEET POTATO DISINTEGRATOR LAB BLOOD ORDERABLES Final Re sult Performing Organization Address [facility] Co de Phone Number [facility] [place] [address] * (ABNORMAL) Basic metabolic panel (04/18/2025 9:08 PM CDT) Sodium 136 135 - 145 mmol/L Potassium, pl 4.7 3.3 - 4.9 mmol/L [facility] Chloride 99 97 - 110 mmol/L [facility] CO2 26 22 - 32 mmol/L [facility] Anion gap 11 2 - 15 mmol/L [facility] BUN 28(H) 6 - 25 mg/dL [facility] Creatinine 1.35(H) 0.80 - 1.30 mg/dL [facility] Glucose 123 70 - 199 mg/dL [facility] Comment: Interpretive Data Fasting glucose >/= 126 mg/dl is diagnostic for diabetes. Fasting is defined as no caloric intake for at least 8 hours. Fasting glucose between 100 mg/dl to 125 mg/dl is diagnostic of prediabetes. In a patient with classic symptoms of hyperglycemia or hyperglycemic crisis, a random glucose >/= 200 mg/dl is diagnostic for diabetes. In the absence of unequivocal hyperglycemia, results should be confirmed by repeat testing. The classification and Diagnosis of Diabetes Diabetes Care 2021; 46: S19-S40. Current interpretive data was last revised 2022. Calcium 9.5 8.5 - 10.3 mg/dL [facility] Blood 04/18/2025 9:08 PM CDT 04/18/2025 9:47 PM CDT Libia Suarez SWEET POTATO DISINTEGRATOR LAB BLOOD ORDERABLES Final Re sult [facility] [place] [address] * IR Outside Reference (04/18/2025 1:54 PM CDT) Impressions RAD_PACS_[facility] - 04/18/2025 1:54 PM CDT These images are for Reference purposes only and have not been reviewed by [facility]. There will be no report generated by a [facility]iologist. Narrative [facility] - 04/18/2025 1:54 PM CDT EXAMINATION: Images For Reference Purposes Only us Yaakov Lawrence MD PhD IMG IR PROCEDURES Final Result [facility] * XR Chest 1 View (04/18/2025 9:43 AM CDT) Anatomical Region Laterality Modality Body, Chest N/A Digital Radiogra phy 04/18/2025 10:5 3 AM CDT Impressions 04/18/2025 11:07 AM CDT Comparison 04/17/2025. Left internal jugular [place] catheter overlying the right interlobar pulmonary artery. Right arm peripherally inserted central venous catheter over the superior vena cava. Scattered mild linear atelectasis is seen, unchanged compared to prior examination. Unchanged small effusions. No pneumothorax. Normal heart size. Dictated by: Jameel August MD PHD The radiology attending physician has personally reviewed this study, and had reviewed and/or edited this written report and agrees with it. Electronically signed by: Dmitry Armas MD, PHD Narrative 04/18/2025 11:07 AM CDT EXAMINATION: 1 view chest radiograph Procedure Note Dmitry Armas MD PhD - 04/18/2025 EXAMINATION: 1 view chest radiograph IMPRESSION: Comparison 04/17/2025. Left internal jugular [place] catheter overlying the right interlobar pulmonary artery. Right arm peripherally inserted central venous catheter over the superior vena cava. Scattered mild linear atelectasis is seen, unchanged compared to prior examination. Unchanged small effusions. No pneumothorax. Normal heart size. Dictated by: Jameel August MD PHD The radiology attending physician has personally reviewed this study, and had reviewed and/or edited this written report and agrees with it. Electronically signed by: Dmitry Armas MD, PHD us Yaakov Lawrence MD PhD IMG XR PROCEDURES Final Result * Oxyhemoglobin, pulmonary artery (04/18/2025 9:03 AM CDT) Oxyhemoglobin, PA 70.0 % Comment: Interpretive Data No reference range established. Current interpretive data was last revised 2020. Blood 04/18/2025 9:03 AM CDT 04/18/2025 9:21 AM CDT us Wang Almaraz MD LAB BLOOD ORDERABLES Final R esult Performing Organization Address City/[facility]/ZIP Co de Phone Number [facility] [place] [address] * Hemoglobin total, pulmonary artery (04/18/2025 9:03 AM CDT) Hemoglobin total, PA 13.6 13.0 - 17.5 g/dL Blood 04/18/2025 9:03 AM CDT 04/18/2025 9:21 AM CDT us Libia Suarez NP LAB BLOOD ORDERABLES Final Re sult Performing Organization Address [facility] Co de Phone Number [facility] [place] [address] * Lactate, whole blood (04/18/2025 9:03 AM CDT) Lactate, bld 1.6 0.7 - 2.0 mmol/L Blood 04/18/2025 9:03 AM CDT 04/18/2025 9:21 AM CDT us Wang Almaraz MD LAB BLOOD ORDERABLES Final R esult Performing Organization Address City/[facility] Co de Phone Number [facility] [place] [address] * Potassium, whole blood (04/18/2025 6:23 AM CDT) Potassium, bld 4.6 3.3 - 4.9 mmol/L Blood 04/18/2025 6:23 AM CDT 04/18/2025 6:44 AM CDT Dinorah Kahn SWEET POTATO DISINTEGRATOR LAB BLOOD ORDERABLES Final Result Performing Organization Address [facility] Co de Phone Number [facility] [place] [address] * (ABNORMAL) aPTT (04/18/2025 5:31 AM CDT) aPTT 61(H) 28 - 38 sec Comment: Interpretive Data Heparin therapeutic range: 66.0 - 100.0 seconds. Range based on correlation with therapeutic heparin activity range of 0.3 - 0.7 Units/mL. Current interpretive data was last revised on 2023. Blood 04/18/2025 5:31 AM CDT 04/18/2025 6:48 AM CDT Narrative [facility] - 04/18/2025 6:57 AM CDT STAT PTT timing: - Draw 6 hours after heparin infusion initiation - Draw 6 hours after every dose change until 2 consecutive PTTs are therapeutic - Once 2 consecutive PTTs are therapeutic, obtain with daily labs until infusion is discontinued - - Restart every 6 hour lab draws and follow instructions accordingly if PTT is outside of therapeutic range Do not draw lab from IV line that is actively infusing heparin. Use the opposite arm. If arm with actively infusing heparin must be used, pause the infusion for at least 2 minutes, and draw specimen below the IV site. For patients with a central venous catheter (CVC), lab must be drawn peripherally (not from CVC). Libia Suarez SWEET POTATO DISINTEGRATOR LAB BLOOD ORDERABLES Final Re sult Performing Organization Address [facility]/ZIP Co de Phone Number [facility] [place] [address] * Oxyhemoglobin, pulmonary artery (04/17/2025 8:31 PM CDT) Oxyhemoglobin, PA 72.6 % Comment: Interpretive Data No reference range established. Current interpretive data was last revised 2020. Blood 04/17/2025 8:31 PM CDT 04/17/2025 8:43 PM CDT Wang Almaraz MD LAB BLOOD ORDERABLES Final R esult [facility] [place] [address] * Hemoglobin total, pulmonary artery (04/17/2025 8:31 PM CDT) Hemoglobin total, PA 13.6 13.0 - 17.5 g/dL Blood 04/17/2025 8:31 PM CDT 04/17/2025 8:43 PM CDT Wang Almaraz MD LAB BLOOD ORDERABLES Final R esult Performing Organization Address City/State/[facility] Co de Phone Number [facility] [place] [address] * eGFR (04/17/2025 8:31 PM CDT) eGFR 64 >=60 mL/min/1. 73 m2 Comment: Interpretive Data Reference Interval Normal >/= 90 mL/min/1.73m2 Mildly decreased* 60 - 89 mL/min/1.73m2 Mildly to moderately decreased 45 - 59 mL/min/1.73m2 Moderately to severely decreased 30 - 44 mL/min/1.73m2 Severely decreased 15 - 29 mL/min/1.73m2 Kidney Failure < 15 mL/min/1.73m2 *Relative to young adult level Estimated glomerular filtration rate is determined by the 2020 CKD-EPI equation recommended by the National Kidney Foundation (A Unifying Approach to GFR Estimation: Recommendations of the NKF-ASK Task Force on Reassessing the Inclusion of Race in Diagnosing Kidney Disease, JASN 2020). The CKD-EPI equation should not be used for patients with unstable renal function and has not been validated in children and those over 70. Current interpretive data was last reviewed 2021. Blood 04/17/2025 8:31 PM CDT 04/17/2025 8:45 PM CDT Libia Suarez SWEET POTATO DISINTEGRATOR LAB BLOOD ORDERABLES Final Re sult Performing Organization Address City/[facility]/ZIP Co de Phone Number [facility] [place] [address] * Lactate, whole blood (04/17/2025 8:31 PM CDT) [facility] Lactate, bld 1.1 0.7 - 2.0 mmol/L Blood 04/17/2025 8:31 PM CDT 04/17/2025 8:43 PM CDT Wang Almaraz MD LAB BLOOD ORDERABLES Final R esult Performing Organization Address [facility] Co de Phone Number [facility] [place] [address] * (ABNORMAL) CBC without differential (04/17/2025 8:31 PM CDT) [facility] WBC 7.87 3.80 - 9.90 K/cumm Hgb 13.4 13.0 - 17.5 g/dL [facility] Hct 40.9 38.9 - 50.3 % [facility] Plt 166 150 - 400 K/cumm [facility] MPV 11.5 9.1 - 12.[address] [facility] RBC 4.94 4.30 - 5.80 M/cumm [facility] MCV 82.8 81.3 - 96.[address] [facility] MCH 27.1 27.1 - 33.[address] [facility] MCHC 32.8 32.3 - 35.7 g/dL [facility] RDW CV 16.3(H) 11.1 - 14.9 % [facility] RDW SD 48.8(H) 35.7 - 48.[address] [facility] NRBC abs 0.00 0.00 - 0.01 K/cumm [facility] Blood 04/17/2025 8:31 PM CDT 04/17/2025 8:46 PM CDT Libia Suarez SWEET POTATO DISINTEGRATOR LAB BLOOD ORDERABLES Final Re sult Performing Organization Address City/[facility] Co de Phone Number [facility] [place] [address] * Phosphorus (04/17/2025 8:31 PM CDT) Phosphorus, pl 3.5 2.3 - 4.5 mg/dL Blood 04/17/2025 8:31 PM CDT 04/17/2025 8:45 PM CDT Libia Suarez SWEET POTATO DISINTEGRATOR LAB BLOOD ORDERABLES Final Re sult Performing Organization Address [facility] Co de Phone Number [facility] [place] [address] * Magnesium (04/17/2025 8:31 PM CDT) Magnesium 2.1 1.4 - 2.5 mg/dL Blood 04/17/2025 8:31 PM CDT 04/17/2025 8:45 PM CDT Libia Suarez SWEET POTATO DISINTEGRATOR LAB BLOOD ORDERABLES Final Re sult Performing Organization Address City/[facility] Co de Phone Number [facility] [place] [address] * (ABNORMAL) Hepatic function panel (04/17/2025 8:31 PM CDT) Bilirubin, total 0.7 0.1 - 1.2 mg/dL Bilirubin, direct 0.3 0.1 - 0.3 mg/dL [facility] Protein, pl 5.9(L) 6.5 - 8.5 g/dL [facility] Albumin 3.7 3.5 - 5.0 g/dL [facility] Alk phos 209(H) 40 - 130 Units/L [facility] ALT 17 7 - 55 Units/L [facility] AST 25 10 - 50 Units/L [facility] Blood 04/17/2025 8:31 PM CDT 04/17/2025 8:45 PM CDT us Libia Suarez SWEET POTATO DISINTEGRATOR LAB BLOOD ORDERABLES Final Re sult [facility] [place] [address] * (ABNORMAL) Basic metabolic panel (04/17/2025 8:31 PM CDT) Sodium 133(L) 135 - 145 mmol/L Potassium, pl 5.1(H) 3.3 - 4.9 mmol/L [facility] Chloride 100 97 - 110 mmol/L [facility] CO2 24 22 - 32 mmol/L [facility] Anion gap 9 2 - 15 mmol/L [facility] BUN 25 6 - 25 mg/dL [facility] Creatinine 1.28 0.80 - 1.30 mg/dL [facility] Glucose 136 70 - 199 mg/dL [facility] Comment: Interpretive Data Fasting glucose >/= 126 mg/dl is diagnostic for diabetes. Fasting is defined as no caloric intake for at least 8 hours. Fasting glucose between 100 mg/dl to 125 mg/dl is diagnostic of prediabetes. In a patient with classic symptoms of hyperglycemia or hyperglycemic crisis, a random glucose >/= 200 mg/dl is diagnostic for diabetes. In the absence of unequivocal hyperglycemia, results should be confirmed by repeat testing. The classification and Diagnosis of Diabetes Diabetes Care 2021; 46: S19-S40. Current interpretive data was last revised 2022. Calcium 9.4 8.5 - 10.3 mg/dL [facility] Blood 04/17/2025 8:31 PM CDT 04/17/2025 8:45 PM CDT us Libia Suarez SWEET POTATO DISINTEGRATOR LAB BLOOD ORDERABLES Final Re sult Performing Organization Address [facility] Co de Phone Number DULCE MARIA [facility] [place] [address] * [place] Outside Reference (04/17/2025 7:04 PM CDT) Impressions [facility] - 04/17/2025 7:04 PM CDT These images are for Reference purposes only and have not been reviewed by [facility]. There will be no report generated by a [facility]iologist. Narrative [facility] - 04/17/2025 7:04 PM CDT EXAMINATION: Images For Reference Purposes Only us Carlos Fernandes MD PhD IMG US PROCEDURES Final Result Performing Organization Address [facility] de Phone Number [email or web address] * US Outside Reference (04/17/2025 7:03 PM CDT) Impressions [facility] - 04/17/2025 7:03 PM CDT These images are for Reference purposes only and have not been reviewed by [facility]. There will be no report generated by a [facility]ologist. Narrative [facility] - 04/17/2025 7:03 PM CDT EXAMINATION: Images For Reference Purposes Only us Carlos Fernandes MD PhD IMG US PROCEDURES Final Result Performing Organization Address [facility] Co de Phone Number [email or web address] * Oxyhemoglobin, pulmonary artery (04/17/2025 3:37 PM CDT) Oxyhemoglobin, PA 63.5 % Comment: Interpretive Data No reference range established. Current interpretive data was last revised 2020. Blood 04/17/2025 3:37 PM CDT 04/17/2025 3:44 PM CDT Wang Almaraz MD LAB BLOOD ORDERABLES Final R esult Performing Organization Address [facility] de Phone Number [facility] [place] [address] * (ABNORMAL) Type and screen (04/17/2025 3:37 PM CDT) Pathologist [facility] Poppy, indirect Positive(A) ABO Rh O Positive [facility] Blood 04/17/2025 3:37 PM CDT 04/17/2025 3:59 PM CDT Narrative [facility] - 04/17/2025 5:20 PM CDT Has the patient had Daratumumab or Isatuximab in the past 6 months?->Unknown Wang Almaraz MD LAB BLOOD BANK TEST ORDERABL ES Final Result Performing Organization Address [facility] [place] [address] * Oxyhemoglobin, pulmonary artery (04/17/2025 11:37 AM CDT) Pathologist [facility] Oxyhemoglobin, PA 68.4 % Comment: Interpretive Data No reference range established. Current interpretive data was last revised 2020. Blood 04/17/2025 11:3 7 AM CDT 04/17/2025 11:45 AM CDT Wang Almaraz MD LAB BLOOD ORDERABLES Final R esult Performing Organization Address [facility] [place] [address] * TRANSTHORACIC ECHO (TTE) COMPLETE W DOPPLER/CF W CONTRAST (04/17/2025 9:52 AM CDT) EF Mod BP 27 % CONS SCIMAGE Anatomical Region Laterality Modality Ultrasound 04/17/2025 8:56 AM CDT Narrative 04/17/2025 1:05 PM CDT [facility] [place] [address] Transthoracic Echocardiographic Report Patient Name: GOSIA ZUNIGA W : 1965 (59y 11m) Gender: M Study Date: 04/17/2025 08:56:38 AM Ht(Inch): 72 Wt(Lb): 173.94 BSA: 2 Pack Mule Worker: Gina Villalobos RDCS Location: [id number] Order Provider: WANG ALMARAZ Heart Rate: 104 BMI: 23.59 BP: 115 / 82 Ref Provider: WANG ALMARAZ Fellow: Samira Dioxn MD PROCEDURES: Echocardiographic Report: Transthoracic complete echo with strain imaging and contrast, 2D, spectral and tissue Doppler, color flow Doppler, M-mode. Contrast: Contrast Enhancement was Employed: Due to suboptimal image quality with inadequate visualization of at least 2 of 16 LV wall segments in any view after initial imaging. Perflutren contrast was administered using the volume necessary to obtain adequate images. 0.8 ml Optison Administered, (2.2 ml wasted). INDICATIONS: Heart failure. CONCLUSIONS: 1. Normal left ventricular size based on volume index. Concentric LV hypertrophy. Severely depressed left ventricular systolic function. The Ejection Fraction (Perkins's) is measured at 27 %. The average global longitudinal strain is abnormal. Abnormal LV GLPS Avg with apical sparing pattern as may be seen in amyloid. Clinical correlation recommended. 2. Right ventricular dilatation. Mild right ventricular hypokinesis. Wire noted in the right heart. 3. The estimated right ventricular systolic pressure is 30-35 mmHg. 4. Small pericardial effusion. ATTESTATION: I have personally reviewed this study with a fellow in a teaching setting and attest to the findings and conclusions. - DISCLAIMER: The study images and the final report will be retained in the patient chart by the Echo Laboratory for the legally required time period. This chart constitutes the legal record of any testing performed. FINDINGS: Left Ventricle: Normal left ventricular size based on volume index. Concentric LV hypertrophy. Severely depressed left ventricular systolic function. The Ejection Fraction (Perkins's) is measured at 27 %. The average global longitudinal strain is abnormal. The LV global strain is: -6.7 %. Abnormal LV GLPS Avg with apical sparing pattern as may be seen in amyloid. Clinical correlation recommended. Right Ventricle: Right ventricular dilatation. RV dilation Moderate RV dilation. Mild right ventricular hypokinesis. Wire noted in the right heart. Left Atrium: The left atrium is normal in size. Right Atrium: Right atrial dilatation. Mitral Valve: Normal mitral valve structure. No mitral regurgitation. No stenosis present. Aortic Valve: Normal trileaflet aortic valve. No aortic regurgitation. No aortic valve stenosis. The mean transaortic gradient is 4 mmHg. The aortic valve area by the continuity equation (using VTI) is 2.48 cm2. Aortic valve dimensionless index is 0.80. Tricuspid Valve: Normal Tricuspid valve structure. Mild tricuspid regurgitation. The estimated right ventricular systolic pressure is 30-35 mmHg. Pulmonic Valve: Normal pulmonic valve structure. No pulmonic regurgitation. No pulmonic valve stenosis present. Pericardium: No pericardial effusion. Small pericardial effusion. Left Pleural Effusion. Aorta: Normal aortic root size at sinuses of Valsalva. Normal aortic root size when indexed. The ascending aorta is normal in size when indexed. PASP: Normal estimated pulmonary artery systolic pressure. Rhythm: The rhythm during the study was sinus tachycardia. MEASUREMENTS: 2D/MM Value Range Doppler Value Range LVIDd 2D 4.67 cm [ 4.20 - 5.80 ] AV Peak Nathan 1.3 m/s [ 1.0 - 1.7 ] LVIDs 2D 4.34 cm [ 2.50 - 4.00 ] AV Peak PG 6.76 mmHg IVSd 2D 1.65 cm [ 0.60 - 1.00 ] AV Mean PG 4 mmHg LVPWd 2D 1.62 cm [ 0.60 - 1.00 ] AV VTI 17.2 cm LV Thickness Ratio 1.0 LVOT Peak Nathan 0.9 m/s [ 0.7 - 1.1 ] LV FS 2D 7.09 % [ 25.00 - 43.00 ] LVOT Peak PG 3.24 mmHg LV Mass 2D 335.59 g LVOT Mean PG 2 mmHg LV Mass Index 2D 167.80 g/m2 LVOT VTI 13.7 cm RWT 0.69 LVOT Diam 1.99 cm EDV Mod BP 128.84 ml [ 62.00 - 150.00 ] BENY VTI 2.48 cm2 LV EDV Index 64.42 ml/m2 LVOT/AV VTI 0.80 - Dimensionless index (DVI) ESV Mod BP 94.34 ml [ 21.00 - 61.00 ] MV E Peak Nathan 0.9 m/s [ 0.6 - 1.3 ] EF Mod BP 27 % [ 52 - 72 ] MV A Peak Nathan 0.3 m/s [ 1.0 - 1.2 ] LV GLS -6.7 % [ -25.0 - -18.0 ] MV E/A 3.4 ratio [ 0.8 - 1.5 ] LA Length 4C 7.16 cm MV Decel Time 188.14 msec [ 104.00 - 258.00 ] LA Length 2C 6.26 cm RV S` 10.46 cm/sec LA Volume BP 58.31 ml TR Peak Nathan 2.7 m/s [ 1.0 - 2.8 ] LA Volume Index 29.16 ml/m2 [ 16.00 - 34.00 ] TR Peak PG 29.2 mmHg RV Base Dimen 2D 5.3 cm [ 2.5 - 4.2 ] TAPSE 1.47 cm [ 1.71 - 5.00 ] RA Volume 140.70 ml RA Volume Index 70.35 ml/m2 AoR Diam 2D 3.51 cm [ 3.10 - 3.70 ] Ao Root Index 1.76 cm/m2 [ 1.00 - 2.00 ] Asc Ao Diam 2D 3.35 cm Asc Ao Index 1.68 cm/m2 Electronically Signed By: Michael Zelaya MD 04/17/2025 1:05:30 PM CDT Procedure Note Michael Zelaya MD - 04/17/2025 [facility] [place] [place] [address] Transthoracic Echocardiographic Report Patient Name: GOSIA ZUNIGA W : 1965 (59y 11m) Gender: M Study Date: 04/17/2025 08:56:38 AM Ht(Inch): 72 Wt(Lb): 173.94 BSA: 2 Pack Mule Worker: Gina Villalobos RDCS Location: [id number] Order Provider:WANG ALMARAZ Heart Rate: 104 BMI: 23.59 BP: 115 / 82 Ref Provider: WANG ALMARAZ Fellow: Samira Dixon MD PROCEDURES: Echocardiographic Report: Transthoracic complete echo with strain imagingand contrast, 2D, spectral and tissue Doppler, color flow Doppler, M-mode. Contrast: Contrast Enhancement was Employed: Due to suboptimal imagequality with inadequate visualization of at least 2 of 16 LV wall segments in any viewafter initial imaging. Perflutren contrast was administered using the volume necessaryto obtain adequate images. 0.8 ml Optison Administered, (2.2 ml wasted). INDICATIONS: Heart failure. CONCLUSIONS: 1. Normal left ventricular size based on volume index. Concentric LVhypertrophy. Severely depressed left ventricular systolic function. The EjectionFraction (Perkins's) is measured at 27 %. The average global longitudinal strain is abnormal.Abnormal LV GLPS Avg with apical sparing pattern as may be seen in amyloid. Clinicalcorrelation recommended. 2. Right ventricular dilatation. Mild right ventricular hypokinesis. Wirenoted in the right heart. 3. The estimated right ventricular systolic pressure is 30-35 mmHg. 4. Small pericardial effusion. ATTESTATION: I have personally reviewed this study with a fellow in a teaching settingand attest to the findings and conclusions. - DISCLAIMER: The study images and the final report will be retained in the patientchart by the Echo Laboratory for the legally required time period. This chart constitutesthe legal record of any testing performed. FINDINGS: Left Ventricle: Normal left ventricular size based on volume index.Concentric LV hypertrophy. Severely depressed left ventricular systolic function. TheEjection Fraction (Perkins's) is measured at 27 %. The average global longitudinal strain isabnormal. The LV global strain is: -6.7 %. Abnormal LV GLPS Avg with apical sparingpattern as may be seen in amyloid. Clinical correlation recommended. Right Ventricle: Right ventricular dilatation. RV dilation Moderate RVdilation. Mild right ventricular hypokinesis. Wire noted in the right heart. Left Atrium: The left atrium is normal in size. Right Atrium: Right atrial dilatation. Mitral Valve: Normal mitral valve structure. No mitral regurgitation. Nostenosis present. Aortic Valve: Normal trileaflet aortic valve. No aortic regurgitation. Noaortic valve stenosis. The mean transaortic gradient is 4 mmHg. The aortic valve areaby the continuity equation (using VTI) is 2.48 cm2. Aortic valve dimensionlessindex is 0.80. Tricuspid Valve: Normal Tricuspid valve structure. Mild tricuspidregurgitation. The estimated right ventricular systolic pressure is 30-35 mmHg. Pulmonic Valve: Normal pulmonic valve structure. No pulmonicregurgitation. No pulmonic valve stenosis present. Pericardium: No pericardial effusion. Small pericardial effusion. LeftPleural Effusion. Aorta: Normal aortic root size at sinuses of Valsalva. Normal aortic rootsize when indexed. The ascending aorta is normal in size when indexed. PASP: Normal estimated pulmonary artery systolic pressure. Rhythm: The rhythm during the study was sinus tachycardia. MEASUREMENTS: 2D/MM Value Range DopplerValue Range LVIDd 2D 4.67 cm [ 4.20 - 5.80 ] AV Peak Vel1.3 m/s [ 1.0 - 1.7 ] LVIDs 2D 4.34 cm [ 2.50 - 4.00 ] AV Peak PG6.76 mmHg IVSd 2D 1.65 cm [ 0.60 - 1.00 ] AV Mean PG4 mmHg LVPWd 2D 1.62 cm [ 0.60 - 1.00 ] AV VTI17.2 cm LV Thickness Ratio 1.0 LVOT Peak Vel0.9 m/s [ 0.7 - 1.1 ] LV FS 2D 7.09 % [ 25.00 - 43.00 ] LVOT Peak PG3.24 mmHg LV Mass 2D 335.59 g LVOT Mean PG2 mmHg LV Mass Index 2D 167.80 g/m2 LVOT VTI13.7 cm RWT 0.69 LVOT Diam1.99 cm EDV Mod BP 128.84 ml [ 62.00 - 150.00 ] BENY VTI2.48 cm2 LV EDV Index 64.42 ml/m2 LVOT/AV VTI0.80 - Dimensionless index (DVI) ESV Mod BP 94.34 ml [ 21.00 - 61.00 ] MV E Peak Vel0.9 m/s [ 0.6 - 1.3 ] EF Mod BP 27 % [ 52 - 72 ] MV A Peak Vel0.3 m/s [ 1.0 - 1.2 ] LV GLS -6.7 % [ -25.0 - -18.0 ] MV E/A3.4 ratio [ 0.8 - 1.5 ] LA Length 4C 7.16 cm MV Decel Jluw845.14 msec [ 104.00 - 258.00 ] LA Length 2C 6.26 cm RV S`10.46 cm/sec LA Volume BP 58.31 ml TR Peak Vel2.7 m/s [ 1.0 - 2.8 ] LA Volume Index 29.16 ml/m2 [ 16.00 - 34.00 ] TR Peak PG29.2 mmHg RV Base Dimen 2D 5.3 cm [ 2.5 - 4.2 ] TAPSE 1.47 cm [ 1.71 - 5.00 ] RA Shlupg997.70 ml RA Volume Index70.35 ml/m2 AoR Diam 2D 3.51 cm [ 3.10 - 3.70 ] Ao Root Index 1.76 cm/m2 [ 1.00 - 2.00 ] Asc Ao Diam 2D3.35 cm Asc Ao Index1.68 cm/m2 Electronically Signed By: Michael Zelaya MD 04/17/2025 1:05:30 PM CDT us Wang Almaraz MD CV ECHO PROCEDURES Final Res ult * Antibody identification (04/17/2025 9:07 AM CDT) Antibody ID 1 Anti-CD38 Comment:Panreactive -CD38 on reagent RBCs reacting with anti-CD38 therapy. DTT treatment removes cell surface CD38 and allows detection of common clinically significant antibodies except those against [place] antigens. TRANSFUSION 2015;55;[id number] Blood 04/17/2025 9:07 AM CDT 04/17/2025 9:07 AM CDT us Yaakov Lawrence MD PhD LAB BLOOD BANK WICHO T ORDERABLES Final Result [facility] [place] [address] * XR Chest 1 View (04/17/2025 8:36 AM CDT) Anatomical Region Laterality Modality Body, Chest N/A Computed Radiogr aphy 04/17/2025 11:4 6 AM CDT Impressions 04/17/2025 11:57 AM CDT Comparison is made to chest radiograph 04/16/2025. A left internal jugular [place] catheter tip terminates within the right pulmonary artery. A right upper extremity peripherally inserted central catheter tip terminates in the superior cavoatrial junction. There are small bilateral pleural effusions with underlying atelectasis. No pneumothorax. The cardiomediastinal silhouette is unchanged. Dictated by: Tesfaye Bloom MD The radiology attending physician has personally reviewed this study, and had reviewed and/or edited this written report and agrees with it. Electronically signed by: Blake Montanez M.D. Narrative 04/17/2025 11:57 AM CDT EXAMINATION: 1 view chest radiograph Procedure Note Blake Montanez MD - 04/17/2025 EXAMINATION: 1 view chest radiograph IMPRESSION: Comparison is made to chest radiograph 04/16/2025. A left internal jugular [place] catheter tip terminates within the right pulmonary artery. A right upper extremity peripherally inserted central catheter tip terminates in the superior cavoatrial junction. There are small bilateral pleural effusions with underlying atelectasis. No pneumothorax. The cardiomediastinal silhouette is unchanged. Dictated by: Tesfaye Bloom MD The radiology attending physician has personally reviewed this study, and had reviewed and/or edited this written report and agrees with it. Electronically signed by: Blake Montanez M.D. Yaakov Lawrence MD PhD IMG XR PROCEDURES Final Result * (ABNORMAL) aPTT (04/17/2025 8:05 AM CDT) [facility] aPTT 51(H) 28 - 38 sec Comment: Interpretive Data Heparin therapeutic range: 66.0 - 100.0 seconds. Range based on correlation with therapeutic heparin activity range of 0.3 - 0.7 Units/mL. Current interpretive data was last revised on 2023. Blood 04/17/2025 8:05 AM CDT 04/17/2025 8:25 AM CDT Narrative [facility] - 04/17/2025 9:03 AM CDT STAT PTT timing: - Draw 6 hours after heparin infusion initiation - Draw 6 hours after every dose change until 2 consecutive PTTs are therapeutic - Once 2 consecutive PTTs are therapeutic, obtain with daily labs until infusion is discontinued - - Restart every 6 hour lab draws and follow instructions accordingly if PTT is outside of therapeutic range Do not draw lab from IV line that is actively infusing heparin. Use the opposite arm. If arm with actively infusing heparin must be used, pause the infusion for at least 2 minutes, and draw specimen below the IV site. For patients with a central venous catheter (CVC), lab must be drawn peripherally (not from CVC). us Libia Suarez SWEET POTATO DISINTEGRATOR LAB BLOOD ORDERABLES Final Re sult Performing Organization Address [facility] Co de Phone Number [facility] [place] [address] * Lactate, whole blood (04/17/2025 7:57 AM CDT) Pathologist [facility] Lactate, bld 0.8 0.7 - 2.0 mmol/L Blood 04/17/2025 7:57 AM CDT 04/17/2025 8:06 AM CDT us Wang Almaraz MD LAB BLOOD ORDERABLES Final R esult Performing Organization Address [facility] Co de Phone Number [facility] [place] [address] * Oxyhemoglobin, pulmonary artery (04/17/2025 7:52 AM CDT) [facility] Oxyhemoglobin, PA 68.0 % Comment: Interpretive Data No reference range established. Current interpretive data was last revised 2020. Blood 04/17/2025 7:52 AM CDT 04/17/2025 8:06 AM CDT us Wang Almaraz MD LAB BLOOD ORDERABLES Final R esult Performing Organization Address [facility] Co de Phone Number [facility] [place] [address] * eGFR (04/17/2025 7:52 AM CDT) [facility] eGFR 77 >=60 mL/min/1. 73 m2 Comment: Interpretive Data Reference Interval Normal >/= 90 mL/min/1.73m2 Mildly decreased* 60 - 89 mL/min/1.73m2 Mildly to moderately decreased 45 - 59 mL/min/1.73m2 Moderately to severely decreased 30 - 44 mL/min/1.73m2 Severely decreased 15 - 29 mL/min/1.73m2 Kidney Failure < 15 mL/min/1.73m2 *Relative to young adult level Estimated glomerular filtration rate is determined by the 2020 CKD-EPI equation recommended by the National Kidney Foundation (A Unifying Approach to GFR Estimation: Recommendations of the NKF-ASK Task Force on Reassessing the Inclusion of Race in Diagnosing Kidney Disease, JASN 202). The CKD-EPI equation should not be used for patients with unstable renal function and has not been validated in children and those over 70. Current interpretive data was last reviewed 2021. Blood 04/17/2025 7:52 AM CDT 04/17/2025 8:05 AM CDT us Yaakov Lwarence MD PhD LAB BLOOD ORDERABL ES Final Result [facility] [place] [address] * (ABNORMAL) CBC without differential (04/17/2025 7:52 AM CDT) WBC 7.93 3.80 - 9.90 K/cumm Hgb 12.6(L) 13.0 - 17.5 g/dL [facility] Hct 39.2 38.9 - 50.3 % [facility] Plt 159 150 - 400 K/cumm [facility] MPV 11.5 9.1 - 12.[address] [facility] RBC 4.62 4.30 - 5.80 M/cumm [facility] MCV 84.8 81.3 - 96.[address] [facility] MCH 27.3 27.1 - 33.[address] [facility] MCHC 32.1(L) 32.3 - 35.7 g/dL [facility] RDW CV 16.1(H) 11.1 - 14.9 % [facility] RDW SD 49.9(H) 35.7 - 48.[address] [facility] NRBC abs 0.00 0.00 - 0.01 K/cumm [facility] Blood 04/17/2025 7:52 AM CDT 04/17/2025 8:05 AM CDT Yaakov Lawrence MD PhD LAB BLOOD ORDERABL ES Final Result Performing Organization Address [facility] Co de Phone Number [facility] [place] [address] * (ABNORMAL) Type and screen (04/17/2025 7:52 AM CDT) ABO Rh O Positive Poppy, indirect Positive(A) [facility] Blood 04/17/2025 7:52 AM CDT 04/17/2025 8:10 AM CDT Narrative [facility] - 04/17/2025 9:07 AM CDT Has the patient had Daratumumab or Isatuximab in the past 6 months?->Unknown Yaakov Lawrence MD PhD LAB BLOOD BANK WICHO T ORDERABLES Final Result Performing Organization Address [facility] Co de Phone Number [facility] [place] [address] * Phosphorus (04/17/2025 7:52 AM CDT) Phosphorus, pl 3.3 2.3 - 4.5 mg/dL Blood 04/17/2025 7:52 AM CDT 04/17/2025 8:05 AM CDT Yaakov Lawrence MD PhD LAB BLOOD ORDERABL ES Final Result Performing Organization Address [facility] [place] [address] * Magnesium (04/17/2025 7:52 AM CDT) Magnesium 2.1 1.4 - 2.5 mg/dL Blood 04/17/2025 7:52 AM CDT 04/17/2025 8:05 AM CDT Yaakov Lawrence MD PhD LAB BLOOD ORDERABL ES Final Result Performing Organization Address [facility] Co de Phone Number [facility] [place] [address] * (ABNORMAL) Hepatic function panel (04/17/2025 7:52 AM CDT) Bilirubin, total 0.9 0.1 - 1.2 mg/dL Bilirubin, direct 0.4(H) 0.1 - 0.3 mg/dL [facility] Protein, pl 6.0(L) 6.5 - 8.5 g/dL [facility] Albumin 3.8 3.5 - 5.0 g/dL [facility] Alk phos 193(H) 40 - 130 Units/L [facility] ALT 17 7 - 55 Units/L [facility] AST 19 10 - 50 Units/L [facility] Blood 04/17/2025 7:52 AM CDT 04/17/2025 8:05 AM CDT us Yaakov Lawrence MD PhD LAB BLOOD ORDERABL ES Final Result Performing Organization Address [facility] de Phone Number [facility] [place] [address] * Basic metabolic panel (04/17/2025 7:52 AM CDT) Sodium 136 135 - 145 mmol/L Potassium, pl 4.7 3.3 - 4.9 mmol/L [facility] Chloride 103 97 - 110 mmol/L [facility] CO2 24 22 - 32 mmol/L [facility] Anion gap 9 2 - 15 mmol/L [facility] BUN 23 6 - 25 mg/dL [facility] Creatinine 1.10 0.80 - 1.30 mg/dL [facility] Glucose 110 70 - 199 mg/dL [facility] Comment: Interpretive Data Fasting glucose >/= 126 mg/dl is diagnostic for diabetes. Fasting is defined as no caloric intake for at least 8 hours. Fasting glucose between 100 mg/dl to 125 mg/dl is diagnostic of prediabetes. In a patient with classic symptoms of hyperglycemia or hyperglycemic crisis, a random glucose >/= 200 mg/dl is diagnostic for diabetes. In the absence of unequivocal hyperglycemia, results should be confirmed by repeat testing. The classification and Diagnosis of Diabetes Diabetes Care 2021; 46: S19-S40. Current interpretive data was last revised 2022. Calcium 9.2 8.5 - 10.3 mg/dL [facility] Blood 04/17/2025 7:52 AM CDT 04/17/2025 8:05 AM CDT us Yaakov Lawrence MD PhD LAB BLOOD ORDERABL ES Final Result [facility] [place] [address] * (ABNORMAL) aPTT (04/17/2025 6:24 AM CDT) aPTT 58(H) 28 - 38 sec Comment: Interpretive Data Heparin therapeutic range: 66.0 - 100.0 seconds. Range based on correlation with therapeutic heparin activity range of 0.3 - 0.7 Units/mL. Current interpretive data was last revised on 2023. Blood 04/17/2025 6:24 AM CDT 04/17/2025 6:44 AM CDT Narrative [facility] - 04/17/2025 7:07 AM CDT STAT PTT timing: - Draw 6 hours after heparin infusion initiation - Draw 6 hours after every dose change until 2 consecutive PTTs are therapeutic - Once 2 consecutive PTTs are therapeutic, obtain with daily labs until infusion is discontinued - - Restart every 6 hour lab draws and follow instructions accordingly if PTT is outside of therapeutic range Do not draw lab from IV line that is actively infusing heparin. Use the opposite arm. If arm with actively infusing heparin must be used, pause the infusion for at least 2 minutes, and draw specimen below the IV site. For patients with a central venous catheter (CVC), lab must be drawn peripherally (not from CVC). Libia Suarez NP LAB BLOOD ORDERABLES Final Re sult Performing Organization Address [facility] Co de Phone Number [facility] [place] [address] * Oxyhemoglobin, pulmonary artery (04/17/2025 4:30 AM CDT) Oxyhemoglobin, PA 64.5 % Comment: Interpretive Data No reference range established. Current interpretive data was last revised 2020. Blood 04/17/2025 4:30 AM CDT 04/17/2025 4:39 AM CDT Wang Almaraz MD LAB BLOOD ORDERABLES Final R esult Performing Organization Address [facility] Co de Phone Number [facility] [place] [address] * Hemoglobin total, pulmonary artery (04/17/2025 4:30 AM CDT) Pathologist [facility] Hemoglobin total, PA 13.9 13.0 - 17.5 g/dL Blood 04/17/2025 4:30 AM CDT 04/17/2025 4:39 AM CDT Wang Almaraz MD LAB BLOOD ORDERABLES Final R esult Performing Organization Address [facility] Co de Phone Number [facility] [place] [address] * (ABNORMAL) aPTT (04/17/2025 4:30 AM CDT) aPTT 77(H) 28 - 38 sec Comment: Interpretive Data Heparin therapeutic range: 66.0 - 100.0 seconds. Range based on correlation with therapeutic heparin activity range of 0.3 - 0.7 Units/mL. Current interpretive data was last revised on 2023. Blood 04/17/2025 4:30 AM CDT 04/17/2025 4:45 AM CDT Narrative [facility] - 04/17/2025 5:13 AM CDT STAT PTT timing: - Draw 6 hours after heparin infusion initiation - Draw 6 hours after every dose change until 2 consecutive PTTs are therapeutic - Once 2 consecutive PTTs are therapeutic, obtain with daily labs until infusion is discontinued - - Restart every 6 hour lab draws and follow instructions accordingly if PTT is outside of therapeutic range Do not draw lab from IV line that is actively infusing heparin. Use the opposite arm. If arm with actively infusing heparin must be used, pause the infusion for at least 2 minutes, and draw specimen below the IV site. For patients with a central venous catheter (CVC), lab must be drawn peripherally (not from CVC). Libia Suarez SWEET POTATO DISINTEGRATOR LAB BLOOD ORDERABLES Final Re sult Performing Organization Address [facility] Co de Phone Number [facility] [place] [address] * Oxyhemoglobin, pulmonary artery (04/16/2025 8:59 PM CDT) Oxyhemoglobin, PA 73.5 % Comment: Interpretive Data No reference range established. Current interpretive data was last revised 2020. Blood 04/16/2025 8:59 PM CDT 04/16/2025 9:07 PM CDT Wang Almaraz MD LAB BLOOD ORDERABLES Final R esult Performing Organization Address [facility]/ZIP Co de Phone Number [facility] [place] [address] * Hemoglobin total, pulmonary artery (04/16/2025 8:59 PM CDT) Hemoglobin total, PA 13.9 13.0 - 17.5 g/dL Blood 04/16/2025 8:59 PM CDT 04/16/2025 9:07 PM CDT Wang Almaraz MD LAB BLOOD ORDERABLES Final R esult Performing Organization Address [facility] Co de Phone Number [facility] [place] [address] * Lactate, whole blood (04/16/2025 8:59 PM CDT) Pathologist [facility] Lactate, bld 1.8 0.7 - 2.0 mmol/L Blood 04/16/2025 8:59 PM CDT 04/16/2025 9:07 PM CDT us Wang Almaraz MD LAB BLOOD ORDERABLES Final R esult Performing Organization Address [facility] Co de Phone Number [facility] [place] [address] * ECG 12 lead (04/16/2025 5:55 PM CDT) Pathologist [facility] Ventricular Rate EKG/Min 104 BPM [facility] Atrial Rate 104 BPM [facility] MS-Interval (MSEC) 212 ms [facility] QRS-Interval (MSEC) 98 ms [facility] QT-Interval (MSEC) 334 ms [facility] QTc 439 ms [facility] P Peacham 81 degrees [facility] R Peacham -87 degrees [facility] T Peacham 78 degrees [facility] Diagnosis Sinus tachycardia with 1st degree A-V block Left axis deviation Low voltage QRS Incomplete right bundle branch block Possible Inferior infarct (cited on or before 28-NOV-2023) Cannot rule out Anterior infarct (cited on or before 01-JUL-2021) Abnormal ECG When compared with ECG of 08-APR-2025 08:19, No significant change was found Confirmed by Ok Cordero MD ([id number]) on 04/17/2025 10:43:48 AM [facility] 04/16/2025 5:55 PM CDT 04/17/2025 10:43 AM CDT us Yaakov Lawrence MD PhD ECG ORDERABLES Fi nal Result [facility] * Blood culture Blood (04/16/2025 5:51 PM CDT) Report Final Report: No growth Blood 04/16/2025 5:51 PM CDT 04/16/2025 6:26 PM CDT Narrative [facility] - 04/21/2025 7:00 AM CDT From a different site than #1. Collection->Peripheral 1. Blood cultures are incubated for 4 days on a continuously monitored blood culture system. The first report of a negative culture is issued within 24 hours of receipt of the specimen in the laboratory. 2. Positive culture results are reported as soon as they are detected. 3. The most important factor for detection of microbes in the setting of bloodstream infection is the volume of blood submitted for culture. Failure to collect an optimal blood volume can result in false negative blood cultures. 4. For pediatric patients, the recommended blood volume to collect follows a weight based strategy. See the electronic test catalog for collection instructions. 5. For positive blood cultures, a rapid molecular test may be performed for organism identification using the carlos [employer] blood culture identification panel for gram positive (BCID-GP) and gram negative (BCID-GN) organisms. This nucleic acid amplification test detects microbial DNA in positive blood culture broth. This assay has been cleared by the [place] Food and Drug Administration and its performance characteristics have been verified by the [facility] [facility]. For questions about this culture, contact the Microbiology Laboratory at [phone]. Interpretive data was last revised on 24. us Yaakov Lawrence MD PhD LAB MICROBIOLOGY - GENERAL ORDERABLES Final Result [facility] [place] [address] * Blood culture Blood (04/16/2025 5:51 PM CDT) Report Final Report: No growth Blood 04/16/2025 5:51 PM CDT 04/16/2025 6:26 PM CDT Narrative DULCE MARIA HAIR - 04/21/2025 7:00 AM CDT Collection->Peripheral 1. Blood cultures are incubated for 4 days on a continuously monitored blood culture system. The first report of a negative culture is issued within 24 hours of receipt of the specimen in the laboratory. 2. Positive culture results are reported as soon as they are detected. 3. The most important factor for detection of microbes in the setting of bloodstream infection is the volume of blood submitted for culture. Failure to collect an optimal blood volume can result in false negative blood cultures. 4. For pediatric patients, the recommended blood volume to collect follows a weight based strategy. See the electronic test catalog for collection instructions. 5. For positive blood cultures, a rapid molecular test may be performed for organism identification using the carlos ePlex blood culture identification panel for gram positive (BCID-GP) and gram negative (BCID-GN) organisms. This nucleic acid amplification test detects microbial DNA in positive blood culture broth. This assay has been cleared by the [place] Food and Drug Administration and its performance characteristics have been verified by the [facility]. For questions about this culture, contact the Microbiology Laboratory at [phone]. Interpretive data was last revised on 24. us Yaakov Lawrence MD PhD LAB MICROBIOLOGY - GENERAL ORDERABLES Final Result DULCE MARIA ARANDA [facility] [place] [address] * XR Chest 1 View (04/16/2025 5:48 PM CDT) Anatomical Region Laterality Modality Body, Chest N/A Digital Radiogra phy 04/17/2025 7:37 AM CDT Impressions 04/17/2025 7:37 AM CDT Comparison 04/09/2025. [place]-Jayne catheter in place with tip projecting over the right interlobar pulmonary artery. Right peripherally inserted central venous catheter tip at superior cavoatrial junction. Small bilateral pleural effusions again seen. No pneumothorax seen. Trace pulmonary edema may be present. Mild enlargement cardiac silhouette unchanged. Cardiomediastinal silhouette stable. Electronically signed by: Miguel Angel Ng M.D. Narrative 04/17/2025 7:37 AM CDT EXAMINATION: 1 view chest radiograph Procedure Note Miguel Angel Ng MD - 04/17/2025 EXAMINATION: 1 view chest radiograph IMPRESSION: Comparison 04/09/2025. [place]-Jayne catheter in place with tip projecting over the right interlobar pulmonary artery. Right peripherally inserted central venous catheter tip at superior cavoatrial junction. Small bilateral pleural effusions again seen. No pneumothorax seen. Trace pulmonary edema may be present. Mild enlargement cardiac silhouette unchanged. Cardiomediastinal silhouette stable. Electronically signed by: Miguel Angel Ng M.D. us Kaylah Lr DO IMG XR PROCEDURES Final Result * aPTT (04/16/2025 5:37 PM CDT) aPTT 34 28 - 38 sec Comment: Interpretive Data Heparin therapeutic range: 66.0 - 100.0 seconds. Range based on correlation with therapeutic heparin activity range of 0.3 - 0.7 Units/mL. Current interpretive data was last revised on 2023. Blood 04/16/2025 5:37 PM CDT 04/16/2025 5:46 PM CDT us Wang Almaraz MD LAB BLOOD ORDERABLES Final R esult [facility] [place] [address] * Protime-INR (04/16/2025 5:37 PM CDT) PT 11.5 9.7 - 13.0 sec INR 1.06 0.90 - 1.20 DULCE MARIA ARANDA Comment: Interpretive data Oral anticoagulant therapeutic ranges: Venous thromboembolism prophylaxis or treatment: 2.0-3.0 CARDIOLOGY Standard range: 2.0-3.0 High-intensity range: 2.5-3.5 Refer to indication-specific guidelines for appropriate target ranges for prosthetic heart valve replacement. Current interpretive data was last revised on 2019. Blood 04/16/2025 5:37 PM CDT 04/16/2025 5:46 PM CDT Yaakov Lawrence MD PhD LAB BLOOD ORDERABL ES Final Result DULCE MARIA [facility] [address] * eGFR (04/16/2025 5:33 PM CDT) eGFR 70 >=60 mL/min/1. 73 m2 Comment: Interpretive Data Reference Interval Normal >/= 90 mL/min/1.73m2 Mildly decreased* 60 - 89 mL/min/1.73m2 Mildly to moderately decreased 45 - 59 mL/min/1.73m2 Moderately to severely decreased 30 - 44 mL/min/1.73m2 Severely decreased 15 - 29 mL/min/1.73m2 Kidney Failure < 15 mL/min/1.73m2 *Relative to young adult level Estimated glomerular filtration rate is determined by the 2020 CKD-EPI equation recommended by the National Kidney Foundation (A Unifying Approach to GFR Estimation: Recommendations of the NKF-ASK Task Force on Reassessing the Inclusion of Race in Diagnosing Kidney Disease, JASN 2020). The CKD-EPI equation should not be used for patients with unstable renal function and has not been validated in children and those over 70. Current interpretive data was last reviewed 2021. Blood 04/16/2025 5:33 PM CDT 04/16/2025 6:04 PM CDT us Yaakov Lawrence MD PhD LAB BLOOD ORDERABL ES Final Result Performing Organization Address City/[facility]/ZIP Co de Phone Number DULCE MARIA [facility] [place] [address] * Lactate, whole blood (04/16/2025 5:33 PM CDT) [facility] Lactate, bld 1.0 0.7 - 2.0 mmol/L Blood 04/16/2025 5:33 PM CDT 04/16/2025 5:45 PM CDT Yaakov Lawrence MD PhD LAB BLOOD ORDERABL ES Final Result [facility] [place] [address] * (ABNORMAL) CBC without differential (04/16/2025 5:33 PM CDT) [facility] WBC 7.51 3.80 - 9.90 K/cumm Hgb 13.4 13.0 - 17.5 g/dL [facility] Hct 41.9 38.9 - 50.3 % [facility] Plt 161 150 - 400 K/cumm [facility] MPV 11.2 9.1 - 12.[address] [facility] RBC 4.99 4.30 - 5.80 M/cumm [facility] MCV 84.0 81.3 - 96.[address] [facility] MCH 26.9(L) 27.1 - 33.[address] [facility] MCHC 32.0(L) 32.3 - 35.7 g/dL [facility] RDW CV 16.1(H) 11.1 - 14.9 % [facility] RDW SD 48.3(H) 35.7 - 48.[address] [facility] NRBC abs 0.00 0.00 - 0.01 K/cumm [facility] Blood 04/16/2025 5:33 PM CDT 04/16/2025 6:04 PM CDT Yaakov Lawrence MD PhD LAB BLOOD ORDERABL ES Final Result Performing Organization Address City/[facility]/ZIP Co de Phone Number [facility] [place] [address] * Basic metabolic panel (04/16/2025 5:33 PM CDT) Sodium 138 135 - 145 mmol/L Potassium, pl 4.9 3.3 - 4.9 mmol/L [facility] Chloride 101 97 - 110 mmol/L [facility] CO2 26 22 - 32 mmol/L [facility] Anion gap 11 2 - 15 mmol/L [facility] BUN 24 6 - 25 mg/dL [facility] Creatinine 1.19 0.80 - 1.30 mg/dL [facility] Glucose 94 70 - 199 mg/dL [facility] Comment: Interpretive Data Fasting glucose >/= 126 mg/dl is diagnostic for diabetes. Fasting is defined as no caloric intake for at least 8 hours. Fasting glucose between 100 mg/dl to 125 mg/dl is diagnostic of prediabetes. In a patient with classic symptoms of hyperglycemia or hyperglycemic crisis, a random glucose >/= 200 mg/dl is diagnostic for diabetes. In the absence of unequivocal hyperglycemia, results should be confirmed by repeat testing. The classification and Diagnosis of Diabetes Diabetes Care 2021; 46: S19-S40. Current interpretive data was last revised 2022. Calcium 9.8 8.5 - 10.3 mg/dL [facility] Blood 04/16/2025 5:33 PM CDT 04/16/2025 6:04 PM CDT Yaakov Lawrence MD PhD LAB BLOOD ORDERABL ES Final Result [facility] [place] [address] * RIGHT HEART CATH (04/16/2025 12:09 PM CDT) Anatomical Region Laterality Modality X-Ray Angiograph y Narrative 04/17/2025 8:23 AM CDT Right Heart Catheterization Report Patient: Gosia Zuniga 1965 Referring: Yaakov Lawrence,* Performing: Felicitas Rodgers DO Fellow: Taz Yoo MD Patient Clinical Profile: Gosia Zuniga is a 59 y.o. Declined male referred today for right heart catheterization. Procedure: 1) Consent was obtained 2) The patient was transported to the catheterization bay, prepped, and draped in the usual sterile fashion. 3) I provided direct [id number] monitoring of conscious sedation which was administered by an independent trained nurse using Fentanyl 25 mcg and Midazolam 1 mg. Sedation time 50 min. Local anesthesia with 1% lidocaine was used. 4) Venous access was obtained in theLeft Internal Jugular vein using modified Seldinger technique and micropuncture approach. A 8 Indonesian sheath was secured into place. 5) Right heart catheterization was performed with a 7.5 Indonesian VIP Eliel Jayne catheter. The catheter was advanced sequentially to the right atrium, right ventricle, pulmonary artery, and to the pulmonary capillary wedge position with pressures measured at each station and saturations drawn from the pulmonary artery for the estimation of cardiac output. Cardiac output by thermodilution was obtained. 6) Hemostasis - At the conclusion of the case the sheath was sutured into place. 7) Complications - There were no complications. Results: Hemodynamics Noninvasive blood pressure (121/80/95) mmHg Right Heart Pressures (End-expiratory) Right atrial pressure 8 mmHg mean. Right ventricular pressure 30/9 mmHg. Pulmonary artery pressure 32/14/20 mmHg. Pulmonary capillary wedge pressure 13 mmHg at end expiration. Derived Pressures Transpulmonary gradient 7 mmHg Diastolic pressure gradient 1 mmHg Transsystemic Gradient 87 mmHg Outputs and Resistances BSA 2.01 kg/m2 Hemoglobin 13.2 g/dl Heart Rate 95 beats/min Pulmonary Arterial Saturation 68% Systemic Arterial Saturation 94% AVO2 Difference 4.67 ml/dl Cardiac Output 125 x BSA Method (estimated VO2 251.35 ml/min) = 5.39 L/min, 2.68 L/min/m2. Thermodilution = 4.80 L/min, 2.39 L/min/m2 Vascular Resistances Pulmonary Vascular Resistance 1.3 Wood Units by Zakia and 1.5 Wood units by thermodilution Systemic Vascular Resistance 16.1 Wood Units by Zakia and 18.1 Wood units by thermodilution Diagnostic Impressions: 1) Normal left heart filling pressures. 2) Normal right heart filling pressures. 3) No pulmonary hypertension. 4) Borderline normal cardiac output on dobutamine 2.5 mcg/kg/min. Therapeutic Recommendations: The results of the right heart catheterization were discussed with the referring physician. Felicitas Rodgers DO Planning Director Division of Cardiology [facility] Araceli Romero SWEET POTATO DISINTEGRATOR CV CARDIAC CATH PROCEDUR ES Final Result * (ABNORMAL) POCT oxyhemoglobin (04/16/2025 11:50 AM CDT) [employer]GER Oxyhemoglobin 68.2 >=65.0 % [employer]E MANAGER Hemoglobin 12.6(L) 13.0 - 17.5 g/dL [facility] GAME PRESERVE MANAGER O2 content 11.9(L) 15.0 - 22.0 Vol % [facility] Anatomic Site aPOC Pulm Artery [facility] Blood 04/16/2025 11:5 0 AM CDT 04/16/2025 11:50 AM CDT Yaakov Lawrence MD PhD LAB POCT ORDERABLE S - DEVICE Final Result Performing Organization Address City/[facility]/ZIP Co de Phone Number [facility] [place] [address] * (ABNORMAL) POCT oxyhemoglobin (04/16/2025 11:49 AM CDT) GAME PRESERVE MANAGER Oxyhemoglobin 68.8 >=65.0 % [employer] PRES[employer]E MANAGER Hemoglobin 12.8(L) 13.0 - 17.5 g/dL [facility] GAME PRESERVE MANAGER O2 content 12.3(L) 15.0 - 22.0 Vol % [facility] Anatomic Site aPOC Pulm Artery [facility] Blood 04/16/2025 11:4 9 AM CDT 04/16/2025 11:49 AM CDT Yaakov Lawrence MD PhD LAB POCT ORDERABLE S - DEVICE Final Result Performing Organization Address City/[facility]/ZIP Co de Phone Number [facility] [place] [address] * eGFR (04/16/2025 5:58 AM CDT) eGFR 63 >=60 mL/min/1. 73 m2 Comment: Interpretive Data Reference Interval Normal >/= 90 mL/min/1.73m2 Mildly decreased* 60 - 89 mL/min/1.73m2 Mildly to moderately decreased 45 - 59 mL/min/1.73m2 Moderately to severely decreased 30 - 44 mL/min/1.73m2 Severely decreased 15 - 29 mL/min/1.73m2 Kidney Failure < 15 mL/min/1.73m2 *Relative to young adult level Estimated glomerular filtration rate is determined by the 2020 CKD-EPI equation recommended by the National Kidney Foundation (A Unifying Approach to GFR Estimation: Recommendations of the NKF-ASK Task Force on Reassessing the Inclusion of Race in Diagnosing Kidney Disease, JASN 2020). The CKD-EPI equation should not be used for patients with unstable renal function and has not been validated in children and those over 70. Current interpretive data was last reviewed 2021. Blood 04/16/2025 5:58 AM CDT 04/16/2025 6:45 AM CDT Blake Peña NP LAB BLOOD ORDERABLES Final Result [facility] [place] [address] * (ABNORMAL) aPTT (04/16/2025 5:58 AM CDT) aPTT 70(H) 28 - 38 sec Comment: Interpretive Data Heparin therapeutic range: 66.0 - 100.0 seconds. Range based on correlation with therapeutic heparin activity range of 0.3 - 0.7 Units/mL. Current interpretive data was last revised on 2023. Blood 04/16/2025 5:58 AM CDT 04/16/2025 6:52 AM CDT Narrative DULCE MARIA ARANDA - 04/16/2025 7:01 AM CDT STAT PTT timing: - Draw 6 hours after heparin infusion initiation - Draw 6 hours after every dose change until 2 consecutive PTTs are therapeutic - Once 2 consecutive PTTs are therapeutic, obtain with daily labs until infusion is discontinued - - Restart every 6 hour lab draws and follow instructions accordingly if PTT is outside of therapeutic range Do not draw lab from IV line that is actively infusing heparin. Use the opposite arm. If arm with actively infusing heparin must be used, pause the infusion for at least 2 minutes, and draw specimen below the IV site. For patients with a central venous catheter (CVC), lab must be drawn peripherally (not from CVC). us Libia Suarez SWEET POTATO DISINTEGRATOR LAB BLOOD ORDERABLES Final Re sult [facility] [place] [address] * (ABNORMAL) CBC without differential (04/16/2025 5:58 AM CDT) [facility] WBC 8.28 3.80 - 9.90 K/cumm Hgb 13.2 13.0 - 17.5 g/dL [facility] Hct 41.5 38.9 - 50.3 % [facility] Plt 176 150 - 400 K/cumm [facility] MPV 12.0 9.1 - 12.[address] [facility] RBC 4.99 4.30 - 5.80 M/cumm [facility] MCV 83.2 81.3 - 96.[address] [facility] MCH 26.5(L) 27.1 - 33.[address] [facility] MCHC 31.8(L) 32.3 - 35.7 g/dL [facility] RDW CV 15.9(H) 11.1 - 14.9 % [facility] RDW SD 47.2 35.7 - 48.[address] [facility] NRBC abs 0.00 0.00 - 0.01 K/cumm [facility] Blood 04/16/2025 5:58 AM CDT 04/16/2025 6:45 AM CDT us Blake Peña SWEET POTATO DISINTEGRATOR LAB BLOOD ORDERABLES Final Result DULCE MARIA [facility] [place] [address] * (ABNORMAL) Basic metabolic panel (04/16/2025 5:58 AM CDT) Pathologist [facility] Sodium 134(L) 135 - 145 mmol/L Potassium, pl 4.7 3.3 - 4.9 mmol/L [facility] Chloride 98 97 - 110 mmol/L [facility] CO2 28 22 - 32 mmol/L [facility] Anion gap 8 2 - 15 mmol/L [facility] BUN 31(H) 6 - 25 mg/dL [facility] Creatinine 1.30 0.80 - 1.30 mg/dL [facility] Glucose 104 70 - 199 mg/dL [facility] Comment: Interpretive Data Fasting glucose >/= 126 mg/dl is diagnostic for diabetes. Fasting is defined as no caloric intake for at least 8 hours. Fasting glucose between 100 mg/dl to 125 mg/dl is diagnostic of prediabetes. In a patient with classic symptoms of hyperglycemia or hyperglycemic crisis, a random glucose >/= 200 mg/dl is diagnostic for diabetes. In the absence of unequivocal hyperglycemia, results should be confirmed by repeat testing. The classification and Diagnosis of Diabetes Diabetes Care 2021; 46: S19-S40. Current interpretive data was last revised 2022. Calcium 9.9 8.5 - 10.3 mg/dL [facility] Blood 04/16/2025 5:58 AM CDT 04/16/2025 6:45 AM CDT us Blake Peña SWEET POTATO DISINTEGRATOR LAB BLOOD ORDERABLES Final Result DULCE MARIA [facility] [place] [address] * Infection Prevention Shady auris PCR, surveillance Axilla/Groin (04/15/2025 12:18 PM CDT) Shady auris DNA Not Detected Not Detected [facility] Comment: Interpretive Data Testing performed by [facility] using the Lucas carlos 6800 Shady auris assay. This assay detects DNA from Shady auris using Real-Time PCR. This assay is laboratory developed and is not cleared by the [place] Food and Drug Administration. The performance characteristics have been verified by the [facility]. Axilla/Groin 04/15/2025 12:1 8 PM CDT 04/15/2025 1:09 PM CDT Narrative DULCE MARIA [facility] - 04/16/2025 1:28 PM CDT Order placed by [facility] due to ring surveillance. us Instant Order Generic Provider LAB MICROBIOLOGY - GENERAL ORDERABLES Final Result MELISATRACEY [facility] [place] [address] [facility] * eGFR (04/15/2025 5:09 AM CDT) eGFR 61 >=60 mL/min/1. 73 m2 Comment: Interpretive Data Reference Interval Normal >/= 90 mL/min/1.73m2 Mildly decreased* 60 - 89 mL/min/1.73m2 Mildly to moderately decreased 45 - 59 mL/min/1.73m2 Moderately to severely decreased 30 - 44 mL/min/1.73m2 Severely decreased 15 - 29 mL/min/1.73m2 Kidney Failure < 15 mL/min/1.73m2 *Relative to young adult level Estimated glomerular filtration rate is determined by the 2020 CKD-EPI equation recommended by the National Kidney Foundation (A Unifying Approach to GFR Estimation: Recommendations of the NKF-ASK Task Force on Reassessing the Inclusion of Race in Diagnosing Kidney Disease, JASN 202). The CKD-EPI equation should not be used for patients with unstable renal function and has not been validated in children and those over 70. Current interpretive data was last reviewed 2021. Blood 04/15/2025 5:09 AM CDT 04/15/2025 5:56 AM CDT Blake Peña SWEET POTATO DISINTEGRATOR LAB BLOOD ORDERABLES Final Result Performing Organization Address [facility] Co de Phone Number DULCE MARIA [facility] [place] [address] * (ABNORMAL) aPTT (04/15/2025 5:09 AM CDT) [facility] aPTT 69(H) 28 - 38 sec Comment: Interpretive Data Heparin therapeutic range: 66.0 - 100.0 seconds. Range based on correlation with therapeutic heparin activity range of 0.3 - 0.7 Units/mL. Current interpretive data was last revised on 2023. Blood 04/15/2025 5:09 AM CDT 04/15/2025 6:01 AM CDT Narrative [facility] - 04/15/2025 6:11 AM CDT STAT PTT timing: - Draw 6 hours after heparin infusion initiation - Draw 6 hours after every dose change until 2 consecutive PTTs are therapeutic - Once 2 consecutive PTTs are therapeutic, obtain with daily labs until infusion is discontinued - - Restart every 6 hour lab draws and follow instructions accordingly if PTT is outside of therapeutic range Do not draw lab from IV line that is actively infusing heparin. Use the opposite arm. If arm with actively infusing heparin must be used, pause the infusion for at least 2 minutes, and draw specimen below the IV site. For patients with a central venous catheter (CVC), lab must be drawn peripherally (not from CVC). Libia Suarez SWEET POTATO DISINTEGRATOR LAB BLOOD ORDERABLES Final Re sult DULCE MARIA [facility] [place] [address] * (ABNORMAL) CBC without differential (04/15/2025 5:09 AM CDT) [facility] WBC 7.65 3.80 - 9.90 K/cumm Hgb 12.7(L) 13.0 - 17.5 g/dL [facility] Hct 39.1 38.9 - 50.3 % [facility] Plt 162 150 - 400 K/cumm [facility] MPV 12.1 9.1 - 12.[address] [facility] RBC 4.77 4.30 - 5.80 M/cumm [facility] MCV 82.0 81.3 - 96.[address] [facility] MCH 26.6(L) 27.1 - 33.[address] [facility] MCHC 32.5 32.3 - 35.7 g/dL [facility] RDW CV 15.9(H) 11.1 - 14.9 % [facility] RDW SD 47.3 35.7 - 48.[address] [facility] NRBC abs 0.00 0.00 - 0.01 K/cumm [facility] Blood 04/15/2025 5:09 AM CDT 04/15/2025 5:56 AM CDT us Blake Peña SWEET POTATO DISINTEGRATOR LAB BLOOD ORDERABLES Final Result Performing Organization Address [facility]/ZIP Co de Phone Number [facility] [place] [address] * Magnesium (04/15/2025 5:09 AM CDT) [facility] Magnesium 2.5 1.4 - 2.5 mg/dL Blood 04/15/2025 5:09 AM CDT 04/15/2025 5:56 AM CDT us Yaakov Lawrence MD PhD LAB BLOOD ORDERABL ES Final Result [facility] [place] [address] * (ABNORMAL) Basic metabolic panel (04/15/2025 5:09 AM CDT) Pathologist [facility] Sodium 133(L) 135 - 145 mmol/L Potassium, pl 4.3 3.3 - 4.9 mmol/L [facility] Chloride 97 97 - 110 mmol/L [facility] CO2 27 22 - 32 mmol/L [facility] Anion gap 9 2 - 15 mmol/L [facility] BUN 30(H) 6 - 25 mg/dL [facility] Creatinine 1.34(H) 0.80 - 1.30 mg/dL [facility] Glucose 101 70 - 199 mg/dL [facility] Comment: Interpretive Data Fasting glucose >/= 126 mg/dl is diagnostic for diabetes. Fasting is defined as no caloric intake for at least 8 hours. Fasting glucose between 100 mg/dl to 125 mg/dl is diagnostic of prediabetes. In a patient with classic symptoms of hyperglycemia or hyperglycemic crisis, a random glucose >/= 200 mg/dl is diagnostic for diabetes. In the absence of unequivocal hyperglycemia, results should be confirmed by repeat testing. The classification and Diagnosis of Diabetes Diabetes Care 202; 46: S19-S40. Current interpretive data was last revised 2022. Calcium 9.6 8.5 - 10.3 mg/dL [facility] Blood 04/15/2025 5:09 AM CDT 04/15/2025 5:56 AM CDT Blake Peña SWEET POTATO DISINTEGRATOR LAB BLOOD ORDERABLES Final Result Performing Organization Address City/[facility]/ZIP Co de Phone Number [facility] [place] [address] * (ABNORMAL) aPTT (04/14/2025 4:47 PM CDT) aPTT 82(H) 28 - 38 sec Comment: Interpretive Data Heparin therapeutic range: 66.0 - 100.0 seconds. Range based on correlation with therapeutic heparin activity range of 0.3 - 0.7 Units/mL. Current interpretive data was last revised on 2023. Blood 04/14/2025 4:47 PM CDT 04/14/2025 5:22 PM CDT us Araceli Romero SWEET POTATO DISINTEGRATOR LAB BLOOD ORDERABLES Fin al Result [facility] [place] [address] * (ABNORMAL) aPTT (04/14/2025 11:34 AM CDT) aPTT 76(H) 28 - 38 sec Comment: Interpretive Data Heparin therapeutic range: 66.0 - 100.0 seconds. Range based on correlation with therapeutic heparin activity range of 0.3 - 0.7 Units/mL. Current interpretive data was last revised on 2023. Blood 04/14/2025 11:3 4 AM CDT 04/14/2025 12:24 PM CDT Araceli Romero NP LAB BLOOD ORDERABLES [facility] al Result DULCE MARIA ARANDA [facility] [place] [address] * (ABNORMAL) eGFR (04/14/2025 4:00 AM CDT) eGFR 55(L) >=60 mL/min/1. 73 m2 Comment: Interpretive Data Reference Interval Normal >/= 90 mL/min/1.73m2 Mildly decreased* 60 - 89 mL/min/1.73m2 Mildly to moderately decreased 45 - 59 mL/min/1.73m2 Moderately to severely decreased 30 - 44 mL/min/1.73m2 Severely decreased 15 - 29 mL/min/1.73m2 Kidney Failure < 15 mL/min/1.73m2 *Relative to young adult level Estimated glomerular filtration rate is determined by the 2020 CKD-EPI equation recommended by the National Kidney Foundation (A Unifying Approach to GFR Estimation: Recommendations of the NKF-ASK Task Force on Reassessing the Inclusion of Race in Diagnosing Kidney Disease, JASN 2020). The CKD-EPI equation should not be used for patients with unstable renal function and has not been validated in children and those over 70. Current interpretive data was last reviewed 2021. Blood 04/14/2025 4:00 AM CDT 04/14/2025 4:45 AM CDT us Blake Peña S[employer] DISINTEGRATOR LAB BLOOD ORDERABLES Final Result Performing Organization Address [facility] Co de Phone Number [facility] [place] [address] * (ABNORMAL) aPTT (04/14/2025 4:00 AM CDT) [facility] aPTT 63(H) 28 - 38 sec Comment: Interpretive Data Heparin therapeutic range: 66.0 - 100.0 seconds. Range based on correlation with therapeutic heparin activity range of 0.3 - 0.7 Units/mL. Current interpretive data was last revised on 2023. Blood 04/14/2025 4:00 AM CDT 04/14/2025 4:41 AM CDT Medina Mitchell MD PhD LAB BLOOD ORDERABLES Fi nal Result Performing Organization Address [facility] Co de Phone Number [facility] [place] [address] * (ABNORMAL) CBC without differential (04/14/2025 4:00 AM CDT) [facility] WBC 7.11 3.80 - 9.90 K/cumm Hgb 12.6(L) 13.0 - 17.5 g/dL [facility] Hct 38.3(L) 38.9 - 50.3 % [facility] Plt 160 150 - 400 K/cumm [facility] MPV 11.8 9.1 - 12.[address] [facility] RBC 4.66 4.30 - 5.80 M/cumm [facility] MCV 82.2 81.3 - 96.[address] [facility] MCH 27.0(L) 27.1 - 33.[address] [facility] MCHC 32.9 32.3 - 35.7 g/dL [facility] RDW CV 15.9(H) 11.1 - 14.9 % [facility] RDW SD 46.9 35.7 - 48.[address] [facility] NRBC abs 0.00 0.00 - 0.01 K/cumm [facility] Blood 04/14/2025 4:00 AM CDT 04/14/2025 4:45 AM CDT Blake Peña SWEET POTATO DISINTEGRATOR LAB BLOOD ORDERABLES Final Result Performing Organization Address City/[facility]/ZIP Co de Phone Number [facility] [place] [address] * (ABNORMAL) Basic metabolic panel (04/14/2025 4:00 AM CDT) Pathologist [facility] Sodium 136 135 - 145 mmol/L Potassium, pl 4.2 3.3 - 4.9 mmol/L [facility] Chloride 97 97 - 110 mmol/L [facility] CO2 29 22 - 32 mmol/L [facility] Anion gap 10 2 - 15 mmol/L [facility] BUN 30(H) 6 - 25 mg/dL [facility] Creatinine 1.45(H) 0.80 - 1.30 mg/dL [facility] Glucose 97 70 - 199 mg/dL [facility] Comment: Interpretive Data Fasting glucose >/= 126 mg/dl is diagnostic for diabetes. Fasting is defined as no caloric intake for at least 8 hours. Fasting glucose between 100 mg/dl to 125 mg/dl is diagnostic of prediabetes. In a patient with classic symptoms of hyperglycemia or hyperglycemic crisis, a random glucose >/= 200 mg/dl is diagnostic for diabetes. In the absence of unequivocal hyperglycemia, results should be confirmed by repeat testing. The classification and Diagnosis of Diabetes Diabetes Care 2021; 46: S19-S40. Current interpretive data was last revised 2022. Calcium 9.5 8.5 - 10.3 mg/dL [facility] Blood 04/14/2025 4:00 AM CDT 04/14/2025 4:45 AM CDT Blake Peña SWEET P[employer]O DISINTEGRATOR LAB BLOOD ORDERABLES Final Result Performing Organization Address [facility]/ZIP Co de Phone Number [facility] [place] [address] * (ABNORMAL) aPTT (04/13/2025 5:04 AM CDT) aPTT 68(H) 28 - 38 sec Comment: Interpretive Data Heparin therapeutic range: 66.0 - 100.0 seconds. Range based on correlation with therapeutic heparin activity range of 0.3 - 0.7 Units/mL. Current interpretive data was last revised on 2023. Blood 04/13/2025 5:04 AM CDT 04/13/2025 5:55 AM CDT Narrative DULCE MARIA [facility] - 04/13/2025 6:19 AM CDT STAT PTT timing: - Draw 6 hours after heparin infusion initiation - Draw 6 hours after every dose change until 2 consecutive PTTs are therapeutic - Once 2 consecutive PTTs are therapeutic, obtain with daily labs until infusion is discontinued - - Restart every 6 hour lab draws and follow instructions accordingly if PTT is outside of therapeutic range Do not draw lab from IV line that is actively infusing heparin. Use the opposite arm. If arm with actively infusing heparin must be used, pause the infusion for at least 2 minutes, and draw specimen below the IV site. For patients with a central venous catheter (CVC), lab must be drawn peripherally (not from CVC). Libia Suarez NP LAB BLOOD ORDERABLES Final Re sult [facility] [place] [address] * eGFR (04/13/2025 4:30 AM CDT) Pathologist [facility] eGFR 67 >=60 mL/min/1. 73 m2 Comment: Interpretive Data Reference Interval Normal >/= 90 mL/min/1.73m2 Mildly decreased* 60 - 89 mL/min/1.73m2 Mildly to moderately decreased 45 - 59 mL/min/1.73m2 Moderately to severely decreased 30 - 44 mL/min/1.73m2 Severely decreased 15 - 29 mL/min/1.73m2 Kidney Failure < 15 mL/min/1.73m2 *Relative to young adult level Estimated glomerular filtration rate is determined by the 2020 CKD-EPI equation recommended by the National Kidney Foundation (A Unifying Approach to GFR Estimation: Recommendations of the NKF-ASK Task Force on Reassessing the Inclusion of Race in Diagnosing Kidney Disease, JASN 2020). The CKD-EPI equation should not be used for patients with unstable renal function and has not been validated in children and those over 70. Current interpretive data was last reviewed 2021. Blood 04/13/2025 4:30 AM CDT 04/13/2025 5:29 AM CDT us Blake Peña SWE[employer] DISINTEGRATOR LAB BLOOD ORDERABLES Final Result [facility] [place] [address] * (ABNORMAL) CBC without differential (04/13/2025 4:30 AM CDT) WBC 7.76 3.80 - 9.90 K/cumm Hgb 12.9(L) 13.0 - 17.5 g/dL [facility] Hct 39.4 38.9 - 50.3 % [facility] Plt 160 150 - 400 K/cumm [facility] MPV 11.6 9.1 - 12.[address] [facility] RBC 4.74 4.30 - 5.80 M/cumm [facility] MCV 83.1 81.3 - 96.[address] [facility] MCH 27.2 27.1 - 33.[address] [facility] MCHC 32.7 32.3 - 35.7 g/dL [facility] RDW CV 15.6(H) 11.1 - 14.9 % [facility] RDW SD 46.6 35.7 - 48.[address] [facility] NRBC abs 0.00 0.00 - 0.01 K/cumm [facility] Blood 04/13/2025 4:30 AM CDT 04/13/2025 5:30 AM CDT us Blake Ulises Flick SWE[employer] P[employer]O DISINTEGRATOR LAB BLOOD ORDERABLES Final Result DULCE MARIA [facility] [place] [address] * (ABNORMAL) Basic metabolic panel (04/13/2025 4:30 AM CDT) Sodium 136 135 - 145 mmol/L Potassium, pl 4.2 3.3 - 4.9 mmol/L [facility] Chloride 97 97 - 110 mmol/L [facility] CO2 27 22 - 32 mmol/L [facility] Anion gap 12 2 - 15 mmol/L [facility] BUN 29(H) 6 - 25 mg/dL [facility] Creatinine 1.24 0.80 - 1.30 mg/dL [facility] Glucose 103 70 - 199 mg/dL [facility] Comment: Interpretive Data Fasting glucose >/= 126 mg/dl is diagnostic for diabetes. Fasting is defined as no caloric intake for at least 8 hours. Fasting glucose between 100 mg/dl to 125 mg/dl is diagnostic of prediabetes. In a patient with classic symptoms of hyperglycemia or hyperglycemic crisis, a random glucose >/= 200 mg/dl is diagnostic for diabetes. In the absence of unequivocal hyperglycemia, results should be confirmed by repeat testing. The classification and Diagnosis of Diabetes Diabetes Care 202; 46: S19-S40. Current interpretive data was last revised 2022. Calcium 9.7 8.5 - 10.3 mg/dL [facility] Blood 04/13/2025 4:30 AM CDT 04/13/2025 5:29 AM CDT us Blake Peña SWEET POTATO DISINTEGRATOR LAB BLOOD ORDERABLES Final Result DULCE MARIA [facility] [place] [address] * Infection Prevention Shady auris PCR, surveillance Axilla/Groin (04/12/2025 4:21 AM CDT) Pathologist [facility] Shady auris DNA Not Detected Not Detected [facility] Comment: Interpretive Data Testing performed by [facility] using the Lucas carlos 6800 Shady auris assay. This assay detects DNA from Shady auris using Real-Time PCR. This assay is laboratory developed and is not cleared by the [place] Food and Drug Administration. The performance characteristics have been verified by the [facility]. Axilla/Groin 04/12/2025 4:21 AM CDT 04/12/2025 5:42 AM CDT Narrative DULCE MARIA ARANDA - 04/12/2025 1:32 PM CDT Order placed by [facility] due to ring surveillance. us Instant Order Generic Provider LAB MICROBIOLOGY - GENERAL ORDERABLES Final Result DULCE MARIA ARANDA [facility] [place] [address] [facility] * eGFR (04/12/2025 4:21 AM CDT) eGFR 61 >=60 mL/min/1. 73 m2 Comment: Interpretive Data Reference Interval Normal >/= 90 mL/min/1.73m2 Mildly decreased* 60 - 89 mL/min/1.73m2 Mildly to moderately decreased 45 - 59 mL/min/1.73m2 Moderately to severely decreased 30 - 44 mL/min/1.73m2 Severely decreased 15 - 29 mL/min/1.73m2 Kidney Failure < 15 mL/min/1.73m2 *Relative to young adult level Estimated glomerular filtration rate is determined by the 2020 CKD-EPI equation recommended by the National Kidney Foundation (A Unifying Approach to GFR Estimation: Recommendations of the NKF-ASK Task Force on Reassessing the Inclusion of Race in Diagnosing Kidney Disease, JASN 2020). The CKD-EPI equation should not be used for patients with unstable renal function and has not been validated in children and those over 70. Current interpretive data was last reviewed 2021. Blood 04/12/2025 4:21 AM CDT 04/12/2025 4:50 AM CDT us Blake Peña SWE[employer] DISINTEGRATOR LAB BLOOD ORDERABLES Final Result Performing Organization Address [facility] de Phone Number [facility] [place] [address] * (ABNORMAL) aPTT (04/12/2025 4:21 AM CDT) [facility] aPTT 80(H) 28 - 38 sec Comment: Interpretive Data Heparin therapeutic range: 66.0 - 100.0 seconds. Range based on correlation with therapeutic heparin activity range of 0.3 - 0.7 Units/mL. Current interpretive data was last revised on 2023. Blood 04/12/2025 4:21 AM CDT 04/12/2025 4:50 AM CDT Narrative [facility] - 04/12/2025 5:06 AM CDT STAT PTT timing: - Draw 6 hours after heparin infusion initiation - Draw 6 hours after every dose change until 2 consecutive PTTs are therapeutic - Once 2 consecutive PTTs are therapeutic, obtain with daily labs until infusion is discontinued - - Restart every 6 hour lab draws and follow instructions accordingly if PTT is outside of therapeutic range Do not draw lab from IV line that is actively infusing heparin. Use the opposite arm. If arm with actively infusing heparin must be used, pause the infusion for at least 2 minutes, and draw specimen below the IV site. For patients with a central venous catheter (CVC), lab must be drawn peripherally (not from CVC). Libia Suarez SWEET POTATO DISINTEGRATOR LAB BLOOD ORDERABLES Final Re sult Performing Organization Address [facility] Co de Phone Number [facility] [place] [address] * (ABNORMAL) CBC without differential (04/12/2025 4:21 AM CDT) [facility] WBC 7.37 3.80 - 9.90 K/cumm Hgb 13.2 13.0 - 17.5 g/dL [facility] Hct 40.6 38.9 - 50.3 % [facility] Plt 159 150 - 400 K/cumm [facility] MPV 11.5 9.1 - 12.[address] [facility] RBC 4.90 4.30 - 5.80 M/cumm [facility] MCV 82.9 81.3 - 96.[address] [facility] MCH 26.9(L) 27.1 - 33.[address] [facility] MCHC 32.5 32.3 - 35.7 g/dL [facility] RDW CV 15.7(H) 11.1 - 14.9 % [facility] RDW SD 46.6 35.7 - 48.[address] [facility] NRBC abs 0.00 0.00 - 0.01 K/cumm [facility] Blood 04/12/2025 4:21 AM CDT 04/12/2025 4:50 AM CDT Blake Peña NP LAB BLOOD ORDERABLES Final Result [facility] [place] [address] * (ABNORMAL) Basic metabolic panel (04/12/2025 4:21 AM CDT) Sodium 135 135 - 145 mmol/L Potassium, pl 4.3 3.3 - 4.9 mmol/L [facility] Chloride 97 97 - 110 mmol/L [facility] CO2 26 22 - 32 mmol/L [facility] Anion gap 12 2 - 15 mmol/L [facility] BUN 29(H) 6 - 25 mg/dL [facility] Creatinine 1.34(H) 0.80 - 1.30 mg/dL [facility] Glucose 115 70 - 199 mg/dL [facility] Comment: Interpretive Data Fasting glucose >/= 126 mg/dl is diagnostic for diabetes. Fasting is defined as no caloric intake for at least 8 hours. Fasting glucose between 100 mg/dl to 125 mg/dl is diagnostic of prediabetes. In a patient with classic symptoms of hyperglycemia or hyperglycemic crisis, a random glucose >/= 200 mg/dl is diagnostic for diabetes. In the absence of unequivocal hyperglycemia, results should be confirmed by repeat testing. The classification and Diagnosis of Diabetes Diabetes Care 2022; 46: S19-S40. Current interpretive data was last revised 2022. Calcium 10.0 8.5 - 10.3 mg/dL DULCE MARIA [facility] Blood 04/12/2025 4:21 AM CDT 04/12/2025 4:50 AM CDT us Blake Montgomery Casey SWEET POTATO DISINTEGRATOR LAB BLOOD ORDERABLES Final Result DULCE MARIA [facility] [place] [address] * US Guided Thyroid Fine Needle Aspiration 1st Lesion (04/11/2025 4:06 PM CDT) Anatomical Region Laterality Modality Thyroid N/A Ultrasound 04/11/2025 4:18 PM CDT Impressions 04/11/2025 4:44 PM CDT 1. Successful ultrasound-guided fine needle aspiration of both thyroid nodules in the right mid thyroid and isthmus. 2. Please see separate cytology results for final interpretation. Dictated by: Danny Bolivar M.D. The radiology attending physician has personally reviewed this study, and had reviewed and/or edited this written report and agrees with it. Electronically signed by: Agus Pittman M.D. Narrative 04/11/2025 4:44 PM CDT EXAMINATION: ULTRASOUND-GUIDED FINE NEEDLE ASPIRATION BIOPSY HISTORY: 59-year-old with right thyroid and isthmus nodules. Reportedly, both of these were biopsied in 2020. One of the nodules yielded atypical cells, but it is not clear which nodule this was. The patient requests biopsy of both nodules. COMPARISON: US 04/10/2025 FINDINGS: TR5 nodule in the right mid thyroid measuring 2.9 cm craniocaudal x 2.8 cm transverse x 2.8 cm AP. TR4 nodule in the right mid thyroid/isthmus measuring 4.0 cm craniocaudal x 3.0 cm transverse x 1.2 cm AP. TECHNIQUE: The procedure for ultrasound-guided fine needle aspiration (FNA) was explained to and discussed with the patient. Risks were explained to include, but not be limited to, hemorrhage, infection, injury to adjacent organs, non-diagnostic specimen and adverse reaction to medications administered. The patient voiced understanding and wished to proceed and signed the consent form. The patient's overlying skin was prepped and draped in the usual sterile fashion. FNA: The lesions were located in the right thyroid and isthmus and measured 2.9 cm x 2.8 cm x 2.8 cm and 4.0 cm x 3.0 cm x 1.2 cm. A site was localized for fine needle aspiration. The patient's overlying skin was prepped and draped in the usual sterile fashion. Local anesthesia was achieved via subcutaneous and deep administration with 5 mL of Lidocaine 1%. Under realtime ultrasound guidance, the needle was advanced into lesion 1 in the isthmus and 6 passes were made with 25 gauge needles. Under realtime ultrasound guidance, the needle was advanced into lesion 2 in the right mid thyroid and 6 passes were made with 25 gauge spinal needles. The samples were handed to the director [employer]. The patient's skin was cleaned and dressed. The patient tolerated the entire procedure well without immediate complications. Dr. Agus Pittman M.D., the attending radiologist, was present from the beginning to the end of the procedure. Drs. Pittman and Osmel performed the biopsy. Procedure Note Agus Pittman MD - 04/11/2025 EXAMINATION: ULTRASOUND-GUIDED FINE NEEDLE ASPIRATION BIOPSY HISTORY: 59-year-old with right thyroid and isthmus nodules. Reportedly, both of these were biopsied in 2020. One of the nodules yielded atypical cells, but it is not clear which nodule this was. The patient requests biopsy of both nodules. COMPARISON: US 04/10/2025 FINDINGS: TR5 nodule in the right mid thyroid measuring 2.9 cm craniocaudal x 2.8 cm transverse x 2.8 cm AP. TR4 nodule in the right mid thyroid/isthmus measuring 4.0 cm craniocaudal x 3.0 cm transverse x 1.2 cm AP. TECHNIQUE: The procedure for ultrasound-guided fine needle aspiration (FNA) was explained to and discussed with the patient. Risks were explained to include, but not be limited to, hemorrhage, infection, injury to adjacent organs, non-diagnostic specimen and adverse reaction to medications administered. The patient voiced understanding and wished to proceed and signed the consent form. The patient's overlying skin was prepped and draped in the usual sterile fashion. FNA: The lesions were located in the right thyroid and isthmus and measured 2.9 cm x 2.8 cm x 2.8 cm and 4.0 cm x 3.0 cm x 1.2 cm. A site was localized for fine needle aspiration. The patient's overlying skin was prepped and draped in the usual sterile fashion. Local anesthesia was achieved via subcutaneous and deep administration with 5 mL of Lidocaine 1%. Under realtime ultrasound guidance, the needle was advanced into lesion 1 in the isthmus and 6 passes were made with 25 gauge needles. Under realtime ultrasound guidance, the needle was advanced into lesion 2 in the right mid thyroid and 6 passes were made with 25 gauge spinal needles. The samples were handed to the director [employer]. The patient's skin was cleaned and dressed. The patient tolerated the entire procedure well without immediate complications. Dr. Agus Pittman M.D., the attending radiologist, was present from the beginning to the end of the procedure. Drs. Pittman and Osmel performed the biopsy. IMPRESSION: 1. Successful ultrasound-guided fine needle aspiration of both thyroid nodules in the right mid thyroid and isthmus. 2. Please see separate cytology results for final interpretation. Dictated by: Danny Bolivar M.D. The radiology attending physician has personally reviewed this study, and had reviewed and/or edited this written report and agrees with it. Electronically signed by: Agus Pittman M.D. Araceli Romero SWEET POTATO DISINTEGRATOR IMG US PROCEDURES Final Result * (ABNORMAL) eGFR (04/11/2025 5:43 AM CDT) eGFR 48(L) >=60 mL/min/1. 73 m2 Comment: Interpretive Data Reference Interval Normal >/= 90 mL/min/1.73m2 Mildly decreased* 60 - 89 mL/min/1.73m2 Mildly to moderately decreased 45 - 59 mL/min/1.73m2 Moderately to severely decreased 30 - 44 mL/min/1.73m2 Severely decreased 15 - 29 mL/min/1.73m2 Kidney Failure < 15 mL/min/1.73m2 *Relative to young adult level Estimated glomerular filtration rate is determined by the 2020 CKD-EPI equation recommended by the National Kidney Foundation (A Unifying Approach to GFR Estimation: Recommendations of the NKF-ASK Task Force on Reassessing the Inclusion of Race in Diagnosing Kidney Disease, JASN 2020). The CKD-EPI equation should not be used for patients with unstable renal function and has not been validated in children and those over 70. Current interpretive data was last reviewed 2021. Blood 04/11/2025 5:43 AM CDT 04/11/2025 7:00 AM CDT Blake Peña NP LAB BLOOD ORDERABLES Final Result DULCE MARIA ARANDA [facility] [place] [address] * (ABNORMAL) aPTT (04/11/2025 5:43 AM CDT) aPTT 89(H) 28 - 38 sec Comment: Interpretive Data Heparin therapeutic range: 66.0 - 100.0 seconds. Range based on correlation with therapeutic heparin activity range of 0.3 - 0.7 Units/mL. Current interpretive data was last revised on 2023. Blood 04/11/2025 5:43 AM CDT 04/11/2025 6:51 AM CDT Narrative DULCE MARIA ARANDA - 04/11/2025 7:20 AM CDT STAT PTT timing: - Draw 6 hours after heparin infusion initiation - Draw 6 hours after every dose change until 2 consecutive PTTs are therapeutic - Once 2 consecutive PTTs are therapeutic, obtain with daily labs until infusion is discontinued - - Restart every 6 hour lab draws and follow instructions accordingly if PTT is outside of therapeutic range Do not draw lab from IV line that is actively infusing heparin. Use the opposite arm. If arm with actively infusing heparin must be used, pause the infusion for at least 2 minutes, and draw specimen below the IV site. For patients with a central venous catheter (CVC), lab must be drawn peripherally (not from CVC). us Libia Suarez SWEET POTATO DISINTEGRATOR LAB BLOOD ORDERABLES Final Re sult Performing Organization Address City/[facility]/ZIP Co de Phone Number [facility] [place] [address] * (ABNORMAL) CBC without differential (04/11/2025 5:43 AM CDT) Pathologist [facility] WBC 7.64 3.80 - 9.90 K/cumm Hgb 12.8(L) 13.0 - 17.5 g/dL [facility] Hct 39.5 38.9 - 50.3 % [facility] Plt 173 150 - 400 K/cumm [facility] MPV 11.6 9.1 - 12.[address] [facility] RBC 4.77 4.30 - 5.80 M/cumm [facility] MCV 82.8 81.3 - 96.[address] [facility] MCH 26.8(L) 27.1 - 33.[address] [facility] [facility] MCHC 32.4 32.3 - 35.7 g/dL [facility] RDW CV 15.5(H) 11.1 - 14.9 % [facility] RDW SD 46.7 35.7 - 48.[address] [facility] NRBC abs 0.00 0.00 - 0.01 K/cumm [facility] Blood 04/11/2025 5:43 AM CDT 04/11/2025 7:05 AM CDT us Blake Peña SWEET POTATO DISINTEGRATOR LAB BLOOD ORDERABLES Final Result [facility] [place] [address] * Magnesium (04/11/2025 5:43 AM CDT) [facility] Magnesium 2.1 1.4 - 2.5 mg/dL Blood 04/11/2025 5:43 AM CDT 04/11/2025 7:00 AM CDT us Blake Peña SWEET POTATO DISINTEGRATOR LAB BLOOD ORDERABLES Final Result DULCE MARIA [facility] [place] [address] * (ABNORMAL) Basic metabolic panel (04/11/2025 5:43 AM CDT) Sodium 137 135 - 145 mmol/L Potassium, pl 4.1 3.3 - 4.9 mmol/L [facility] Chloride 97 97 - 110 mmol/L [facility] CO2 28 22 - 32 mmol/L [facility] Anion gap 12 2 - 15 mmol/L [facility] BUN 33(H) 6 - 25 mg/dL [facility] Creatinine 1.62(H) 0.80 - 1.30 mg/dL [facility] Glucose 102 70 - 199 mg/dL [facility] Comment: Interpretive Data Fasting glucose >/= 126 mg/dl is diagnostic for diabetes. Fasting is defined as no caloric intake for at least 8 hours. Fasting glucose between 100 mg/dl to 125 mg/dl is diagnostic of prediabetes. In a patient with classic symptoms of hyperglycemia or hyperglycemic crisis, a random glucose >/= 200 mg/dl is diagnostic for diabetes. In the absence of unequivocal hyperglycemia, results should be confirmed by repeat testing. The classification and Diagnosis of Diabetes Diabetes Care 202; 46: S19-S40. Current interpretive data was last revised 2022. Calcium 9.0 8.5 - 10.3 mg/dL [facility] Blood 04/11/2025 5:43 AM CDT 04/11/2025 7:00 AM CDT us Blake Peña SWEET POTATO DISINTEGRATOR LAB BLOOD ORDERABLES Final Result Performing Organization Address [facility]/ZIP Co de Phone Number DULCE MARIA [facility] [place] [address] * Cytology (04/11/2025 12:00 AM CDT) Fluid (Thyroid Gland (Cytology)) 04/11/2025 3:23 PM CDT Comment:Right mid thyroid/is thmus nodule Narrative PATHOLOGY [facility] - 04/12/2025 1:31 PM CDT EPIC results best viewed via link to PDF [facility] [place] [address] Note to Patients: This report may contain a detailed description of human tissue sent by a health care provider to the laboratory for pathologic evaluation. The content of this report is essential for diagnosis and may provide important critical findings. This information may be unfamiliar to patients to review without a medical professional present. It is advised that the patient review this report in the presence of a health care provider who can answer questions and explain the details. CYTOPATHOLOGY REPORT FINAL WITH ADDENDUM Patient Name: GOSIA ZUNIGA Gender: Elzbieta : 1965 (Age: 59) Address: [address] [place], [place] [id number] Hospital #: [id number] Taken:04/11/2025 Received:04/11/2025 Reported: 04/12/2025 Patient Type: [facility] Inpatient Service: Cardiology Location: [address] Physician(s): Kalin Mcqueen MD FINAL DIAGNOSIS A. Thyroid, right isthmus lobe, ultrasound guided fine needle aspiration: - Atypia of undetermined significance (see comment) B. Thyroid, right inferior lobe, ultrasound guided fine needle aspiration: - Benign Comments Cytology preparations for part A show a paucicellular population of epithelial cells arranged in small, crowded macrofollicular clusters. Colloid is sparse. These cells show mild but diffuse cytologic atypia. As such, the diagnosis of atypia of undetermined significance is warranted. Thyroseq will be sent out, with the results to be issued in an addendum. wp/04/12/2025 13:31 By this signature, I attest that the above diagnosis is based upon my personal examination of the slides(and/or other material indicated in the diagnosis). Juanito Perez DO Report Electronically Reviewed and Signed Out By Juanito Perez DO 04/12/2025 13:31:40 BELA Cline([facility]) Gross Description A. Thyroid, right isthmus lobe, ultrasound guided fine needle aspiration: 2 Pap stained smear(s) and 2 Diff-Quik stained smear(s). 1 ThinPrep prepared from needle rinse tube. Aspirated by clinician. (LUIS) Material for Thyroseq was collected but not requested as reflex testing. Contact pathology at for additional testing B. Thyroid, right inferior lobe, ultrasound guided fine needle aspiration: 2 Pap stained smear(s) and 2 Diff-Quik stained smear(s). 1 ThinPrep prepared from needle rinse tube. Aspirated by clinician. (LUIS) Material for Thyroseq was collected but not requested as reflex testing. Contact pathology at for additional testing Clinical Diagnosis and History The patient is a 59 year old male with thyroid nodules. Addenda/Procedures Addendum Ordered:04/25/2025Status:Signed OutAddendum Complete:04/25/2025y:Juanito Perez DOAddendum Signed Out:04/25/2025 Addendum Comment A digital scan of the original reference lab report will begin on page two of this addendum. By this signature, I attest that the above diagnosis is based upon my personal examination of the slides(and/or other material indicated in the diagnosis). Juanito Perez DOReport Electronically Reviewed and Signed Out By Juanito Perez DO 04/25/2025 13:18:22 REPORT IMAGES AND SCANNED DOCUMENTS, IF INCLUDED, ONLY VIEWABLE IN PDF VERSION OF REPORT The performance characteristics of some immunohistochemical stains, in-situ hybridization and fluorescence in-situ hybridization tests and immunophenotyping by flow cytometry cited in this report (if any) were determined by the Surgical Pathology and Flow Cytometry Departments at [facility] as part of an ongoing quality lead program and in compliance with federally mandated regulations drawn from the Clinical Laboratory Improvement Act of 1988 (CLIA '88). Some of these tests rely on the use of analyte specific reagents and are subject to specific labeling requirements by the US Food and Drug Administration. Such diagnostic tests may only be performed in a facility that is certified by the Department of Health and Human Services as a high complexity laboratory under CLIA '88. The FDA has determined that such clearance or approval is not necessary. This test is used for clinical purposes. It should not be regarded as investigational or for research. Nevertheless, federal rules concerning the medical use of analyte specific reagents require that the following disclaimer be attached to the report: This test was developed and its performance characteristics determined by the Surgical Pathology and Flow Cytometry Departments of [facility]. It has not been cleared or approved by the U. S. Food and Drug Administration. Araceli Romero SWEET POTATO DISINTEGRATOR LAB CYTOLOGY ORDERABLES Final Result PATHOLOGY [facility] [address] Floor [place], [place] [phone] * Infection Prevention Shady auris PCR, surveillance Axilla/Groin (04/10/2025 12:30 PM CDT) Shady auris DNA Not Detected Not Detected [facility] Comment: Interpretive Data Testing performed by [facility] Molecular Infectious Disease Laboratory using the Lucas carlos 6800 Shady auris assay. This assay detects DNA from Shady auris using Real-Time PCR. This assay is laboratory developed and is not cleared by the [employer] Food and Drug Administration. The performance characteristics have been verified by the [facility] Molecular Infectious Disease Laboratory. Axilla/Groin 04/10/2025 12:3 0 PM CDT 04/10/2025 1:28 PM CDT Sathish Gongora MD LAB MICROBIOLOGY - GENERAL ORDER LINH Final Result DULCE MARIA [facility] [place] [address] [facility] * Thyroid (04/10/2025 12:04 PM CDT) Anatomical Region Laterality Modality Head and Neck N/A Ultrasound 04/10/2025 1:39 PM CDT Impressions 04/10/2025 1:39 PM CDT 1. Right mid TR5 nodule is unchanged in size compared to 202, though the internal features appear different on today's examination and thus the TI-RADS category has changed from TR3 to TR5. 2. Unchanged TR4 right mid/isthmus nodule. 3. It is noted that 2 right-sided thyroid nodules were biopsied in 2020, as described in the history portion of the examination. One nodule was benign (described as right middle posterior), and the other nodule (described as right lower) demonstrated atypia of undetermined significance reportedly with Afirma testing showing likely benign lesion 4% risk of malignancy. It is difficult to determine which nodule corresponds to which pathology result as the location description does not match the 2 nodules seen today, and intraprocedural images are not provided. Electronically signed by: Swapna Muniz M.D. Narrative 04/10/2025 1:39 PM CDT EXAMINATION: THYROID SONOGRAM HISTORY: Multinodular goiter, history of left hemithyroidectomy Prior Biopsy: Yes, 2 right-sided thyroid nodules were biopsied with 03/17/2021 and 04/15/2021, one nodule was benign (described as right middle posterior), and the other nodule (described as right lower) demonstrated atypia of undetermined significance with Afirma testing reportedly showing likely benign lesion 4% risk of malignancy Prior Ultrasound: 02/24/2021 FINDINGS: The right lobe and isthmus of the thyroid are enlarged in size. Size right lobe: 7.3 cm craniocaudal, 3.8 cm transverse, 4.3 cm AP. Size left lobe: Surgically absent Size isthmus: 0.8 cm AP. Estimated total number of nodules >/= 1 cm: 2 Number of spongiform nodules >/= 2 cm not described below (TR1): 0 Number of mixed cystic and solid nodules >/= 1.5 cm not described below (TR2): 0 Nodule 1: Location: Right mid. Size: 2.9 cm craniocaudal x 2.8 cm transverse x 2.8 cm AP (previously 3.0 cm craniocaudal x 2.9 cm transverse x 2.6 cm AP) Maximum Size: 2.9 cm Composition: Solid/almost completely solid (2) Echogenicity: Hypoechoic (2) Shape: Not taller than wide (0) Margins: Lobulated/irregular (2) Echogenic foci: Punctate echogenic foci (3) ACR TI-RADS total points: 9 ACR TI-RADS risk category: TR5 (7 or more points) Follow-up details: Prior biopsy: Yes, 2020 Significant change in size (>/= 20% in two dimensions and minimal increase of 2 mm): No Change in features: The nodule appears hypoechoic on today's examination, previously isoechoic, and internal echogenic foci were not previously seen, though this could in part be due to differences in scanning technique Change in ACR TI-RADS risk category: Yes, see description of change in features above Nodule 2: Location: Right mid/isthmus . Size: 4.0 cm craniocaudal x 3.0 cm transverse x 1.2 cm AP (previously 3.6 cm craniocaudal x 2.6 cm transverse x 1.2 cm AP) Maximum Size: 4.0 cm Composition: Solid/almost completely solid (2) Echogenicity: Hypoechoic (2) Shape: Not taller than wide (0) Margins: Smooth (0) Echogenic foci: None (0) ACR TI-RADS total points: 4 ACR TI-RADS risk category: TR4 (4-6 points) Follow-up details: Prior biopsy: Yes, 2020 Significant change in size (>/= 20% in two dimensions and minimal increase of 2 mm): No, 28% increase in volume Change in features: No Change in ACR TI-RADS risk category: No Procedure Note Swapna Muniz MD - 04/10/2025 EXAMINATION: THYROID SONOGRAM HISTORY: Multinodular goiter, history of left hemithyroidectomy Prior Biopsy: Yes, 2 right-sided thyroid nodules were biopsied with 03/17/2021 and 04/15/2021, one nodule was benign (described as right middle posterior), and the other nodule (described as right lower) demonstrated atypia of undetermined significance with Afirma testing reportedly showing likely benign lesion 4% risk of malignancy Prior Ultrasound: 02/24/2021 FINDINGS: The right lobe and isthmus of the thyroid are enlarged in size. Size right lobe: 7.3 cm craniocaudal, 3.8 cm transverse, 4.3 cm AP. Size left lobe: Surgically absent Size isthmus: 0.8 cm AP. Estimated total number of nodules >/= 1 cm: 2 Number of spongiform nodules >/= 2 cm not described below (TR1): 0 Number of mixed cystic and solid nodules >/= 1.5 cm not described below (TR2): 0 Nodule 1: Location: Right mid. Size: 2.9 cm craniocaudal x 2.8 cm transverse x 2.8 cm AP (previously 3.0 cm craniocaudal x 2.9 cm transverse x 2.6 cm AP) Maximum Size: 2.9 cm Composition: Solid/almost completely solid (2) Echogenicity: Hypoechoic (2) Shape: Not taller than wide (0) Margins: Lobulated/irregular (2) Echogenic foci: Punctate echogenic foci (3) ACR TI-RADS total points: 9 ACR TI-RADS risk category: TR5 (7 or more points) Follow-up details: Prior biopsy: Yes, 2020 Significant change in size (>/= 20% in two dimensions and minimal increase of 2 mm): No Change in features: The nodule appears hypoechoic on today's examination, previously isoechoic, and internal echogenic foci were not previously seen, though this could in part be due to differences in scanning technique Change in ACR TI-RADS risk category: Yes, see description of change in features above Nodule 2: Location: Right mid/isthmus . Size: 4.0 cm craniocaudal x 3.0 cm transverse x 1.2 cm AP (previously 3.6 cm craniocaudal x 2.6 cm transverse x 1.2 cm AP) Maximum Size: 4.0 cm Composition: Solid/almost completely solid (2) Echogenicity: Hypoechoic (2) Shape: Not taller than wide (0) Margins: Smooth (0) Echogenic foci: None (0) ACR TI-RADS total points: 4 ACR TI-RADS risk category: TR4 (4-6 points) Follow-up details: Prior biopsy: Yes, 2020 Significant change in size (>/= 20% in two dimensions and minimal increase of 2 mm): No, 28% increase in volume Change in features: No Change in ACR TI-RADS risk category: No IMPRESSION: 1. Right mid TR5 nodule is unchanged in size compared to 2021, though the internal features appear different on today's examination and thus the TI-RADS category has changed from TR3 to TR5. 2. Unchanged TR4 right mid/isthmus nodule. 3. It is noted that 2 right-sided thyroid nodules were biopsied in 2020, as described in the history portion of the examination. One nodule was benign (described as right middle posterior), and the other nodule (described as right lower) demonstrated atypia of undetermined significance reportedly with Afirma testing showing likely benign lesion 4% risk of malignancy. It is difficult to determine which nodule corresponds to which pathology result as the location description does not match the 2 nodules seen today, and intraprocedural images are not provided. Electronically signed by: Swapna Muniz M.D. us Elinor Barone SWEET POTATO DISINTEGRATOR IMG US PROCEDURES Final Re sult * (ABNORMAL) eGFR (04/10/2025 4:33 AM CDT) eGFR 53(L) >=60 mL/min/1. 73 m2 Comment: Interpretive Data Reference Interval Normal >/= 90 mL/min/1.73m2 Mildly decreased* 60 - 89 mL/min/1.73m2 Mildly to moderately decreased 45 - 59 mL/min/1.73m2 Moderately to severely decreased 30 - 44 mL/min/1.73m2 Severely decreased 15 - 29 mL/min/1.73m2 Kidney Failure < 15 mL/min/1.73m2 *Relative to young adult level Estimated glomerular filtration rate is determined by the 2020 CKD-EPI equation recommended by the National Kidney Foundation (A Unifying Approach to GFR Estimation: Recommendations of the NKF-ASK Task Force on Reassessing the Inclusion of Race in Diagnosing Kidney Disease, JASN 202). The CKD-EPI equation should not be used for patients with unstable renal function and has not been validated in children and those over 70. Current interpretive data was last reviewed 2021. Blood 04/10/2025 4:33 AM CDT 04/10/2025 5:20 AM CDT us Blake Peña SWEET POTATO DISINTEGRATOR LAB BLOOD ORDERABLES Final Result Performing Organization Address [facility] de Phone Number [facility] [place] [address] * (ABNORMAL) aPTT (04/10/2025 4:33 AM CDT) [facility] aPTT 85(H) 28 - 38 sec Comment: Interpretive Data Heparin therapeutic range: 66.0 - 100.0 seconds. Range based on correlation with therapeutic heparin activity range of 0.3 - 0.7 Units/mL. Current interpretive data was last revised on 2023. Blood 04/10/2025 4:33 AM CDT 04/10/2025 5:29 AM CDT Narrative [facility] - 04/10/2025 5:39 AM CDT STAT PTT timing: - Draw 6 hours after heparin infusion initiation - Draw 6 hours after every dose change until 2 consecutive PTTs are therapeutic - Once 2 consecutive PTTs are therapeutic, obtain with daily labs until infusion is discontinued - - Restart every 6 hour lab draws and follow instructions accordingly if PTT is outside of therapeutic range Do not draw lab from IV line that is actively infusing heparin. Use the opposite arm. If arm with actively infusing heparin must be used, pause the infusion for at least 2 minutes, and draw specimen below the IV site. For patients with a central venous catheter (CVC), lab must be drawn peripherally (not from CVC). Libia Suarez SWEET POTATO DISINTEGRATOR LAB BLOOD ORDERABLES Final Re sult Performing Organization Address [facility] Co de Phone Number DULCE MARIA [facility] [place] [address] * (ABNORMAL) CBC without differential (04/10/2025 4:33 AM CDT) [facility] WBC 8.57 3.80 - 9.90 K/cumm Hgb 12.9(L) 13.0 - 17.5 g/dL [facility] Hct 40.1 38.9 - 50.3 % [facility] Plt 170 150 - 400 K/cumm [facility] MPV 11.7 9.1 - 12.[address] [facility] RBC 4.83 4.30 - 5.80 M/cumm [facility] MCV 83.0 81.3 - 96.[address] [facility] MCH 26.7(L) 27.1 - 33.[address] [facility] MCHC 32.2(L) 32.3 - 35.7 g/dL [facility] RDW CV 15.5(H) 11.1 - 14.9 % [facility] RDW SD 46.6 35.7 - 48.[address] [facility] NRBC abs 0.00 0.00 - 0.01 K/cumm [facility] Blood 04/10/2025 4:3 3 AM CDT 04/10/2025 5:21 AM CDT us Blake Peña SWEET POTATO DISINTEGRATOR LAB BLOOD ORDERABLES Final Result Performing Organization Address [facility]/ZIP Co de Phone Number [facility] [place] [address] * Magnesium (04/10/2025 4:33 AM CDT) [facility] Magnesium 2.0 1.4 - 2.5 mg/dL Blood 04/10/2025 4:33 AM CDT 04/10/2025 5:20 AM CDT Blake Peña SWEET POTATO DISINTEGRATOR LAB BLOOD ORDERABLES Final Result Performing Organization Address City/[facility]/ZIP Co de Phone Number [facility] [place] [address] * (ABNORMAL) Basic metabolic panel (04/10/2025 4:33 AM CDT) [facility] Sodium 139 135 - 145 mmol/L Potassium, pl 3.7 3.3 - 4.9 mmol/L [facility] Chloride 100 97 - 110 mmol/L [facility] CO2 27 22 - 32 mmol/L [facility] Anion gap 12 2 - 15 mmol/L [facility] BUN 28(H) 6 - 25 mg/dL [facility] Creatinine 1.49(H) 0.80 - 1.30 mg/dL [facility] Glucose 108 70 - 199 mg/dL [facility] Comment: Interpretive Data Fasting glucose >/= 126 mg/dl is diagnostic for diabetes. Fasting is defined as no caloric intake for at least 8 hours. Fasting glucose between 100 mg/dl to 125 mg/dl is diagnostic of prediabetes. In a patient with classic symptoms of hyperglycemia or hyperglycemic crisis, a random glucose >/= 200 mg/dl is diagnostic for diabetes. In the absence of unequivocal hyperglycemia, results should be confirmed by repeat testing. The classification and Diagnosis of Diabetes Diabetes Care 202; 46: S19-S40. Current interpretive data was last revised 2022. Calcium 8.8 8.5 - 10.3 mg/dL [facility] Blood 04/10/2025 4:33 AM CDT 04/10/2025 5:20 AM CDT Blake Peña NP LAB BLOOD ORDERABLES Final Result [facility] [place] [address] * (ABNORMAL) Urinalysis reflex to microscopic and culture Urine (04/09/2025 5:07 PM CDT) Color, ur Straw Yellow Clarity, ur Clear Clear [facility] Specific gravity, ur 1.012 1.003 - 1.[address] [facility] pH, urine 6.[address] [facility] Comment: Interpretive Data U rine pH is affected by diet, medications, systemic acid-base disturbances, and renal tubular function. pH may affect urinary stone formation. For example, urine pH below 6.0 may help reduce the tendency for calcium phosphate stones and pH greater than 6.0 may reduce the tendency for uric acid stone formation. Source: [facility] Rentalutions Current Interpretive Data was last revised on 2017 Protein, ur ql Trace Negative [facility] Glucose, ur ql 3+(A) Negative [facility] Ketones, ur Negative Negative [facility] Bilirubin, ur Negative Negative [facility] Blood, ur Negative [facility] Urobilinogen, ur <2.0 <2.0 mg/dL [facility] Nitrite, ur Negative Negative [facility] Leukocyte esterase, ur Negative Negative [facility] UA reflex comment Reflex conditions for microscopic UA and culture not met. [facility] Urine 04/09/2025 5:07 PM CDT 04/09/2025 5:41 PM CDT us Yaakov Lawrence MD PhD LAB MICROBIOLOGY - GENERAL ORDERABLES Final Result [facility] [place] [address] * XR Chest PA Lateral 2 Views (04/09/2025 3:26 PM CDT) Anatomical Region Laterality Modality Body, Chest N/A Computed Radiogr aphy 04/09/2025 3:42 PM CDT Impressions 04/09/2025 3:58 PM CDT Comparison is made to CT dated 04/08/2025. Unchanged mildly hyperinflated lungs. No pulmonary consolidation or edema. Small bilateral pleural effusions. No pneumothorax. Cardiomediastinal silhouette is within normal limits. Dictated by: Carlos Real M.D. The radiology attending physician has personally reviewed this study, and had reviewed and/or edited this written report and agrees with it. Electronically signed by: Miguel Angel Ng M.D. Narrative 04/09/2025 3:58 PM CDT EXAMINATION: 2 view chest radiograph Procedure Note Miguel Angel Ng MD - 04/09/2025 EXAMINATION: 2 view chest radiograph IMPRESSION: Comparison is made to CT dated 04/08/2025. Unchanged mildly hyperinflated lungs. No pulmonary consolidation or edema. Small bilateral pleural effusions. No pneumothorax. Cardiomediastinal silhouette is within normal limits. Dictated by: Carlos Real M.D. The radiology attending physician has personally reviewed this study, and had reviewed and/or edited this written report and agrees with it. Electronically signed by: Miguel [place] Ng M.D. Yaakov Lawrence MD PhD IMG XR PROCEDURES Final Result * Antibody identification (04/09/2025 3:23 PM CDT) Antibody ID 1 Anti-[id number] Comment:Panreactive -CD38 on reagent RBCs reacting with anti-CD38 therapy. DTT treatment removes cell surface CD38 and allows detection of common clinically significant antibodies except those against [place] antigens. TRANSFUSION 2015;55;[id number] Blood 04/09/2025 3:23 PM CDT 04/09/2025 3:23 PM CDT Yaakov Lawrence MD PhD LAB BLOOD BANK WICHO T ORDERABLES Final Result Performing Organization Address City/State/ZIP Co [place] Phone Number [facility] [place] [address] * CT Head WO Contrast (04/09/2025 3:18 PM CDT) Anatomical Region Laterality Modality Head and Neck N/A Computed Tomogra phy 04/09/2025 5:23 PM CDT Impressions 04/09/2025 5:24 PM CDT No acute intracranial process. Dictated by: William Burciaga M.D. The radiology attending physician has personally reviewed this study, and had reviewed and/or edited this written report and agrees with it. Electronically signed by: Elinor Amaro M.D. 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 COMPARISON: None Available. FINDINGS: There is no acute intracranial hemorrhage. Ventricles are of normal size and morphology. No mass effect or midline shift is present. The ponce-white matter differentiation is normal. The visualized portions of the orbits are normal. The visualized portions of the mastoids are normal. The visualized portions of the paranasal sinuses are normal. No fractures are identified. 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 COMPARISON: None Available. FINDINGS: There is no acute intracranial hemorrhage. Ventricles are of normal size and morphology. No mass effect or midline shift is present. The ponce-white matter differentiation is normal. The visualized portions of the orbits are normal. The visualized portions of the mastoids are normal. The visualized portions of the paranasal sinuses are normal. No fractures are identified. IMPRESSION: No acute intracranial process. Dictated by: William Burciaga M.D. The radiology attending physician has personally reviewed this study, and had reviewed and/or edited this written report and agrees with it. Electronically signed by: Elinor Amaro M.D. Yaakov Lawrence MD PhD IMG CT PROCEDURES Final Result * Collection Task for HLA Antibody Screen (04/09/2025 1:06 PM CDT) [facility] HLA Antibody Screen by PRA Received Blood 04/09/2025 1:06 PM CDT 04/10/2025 9:32 AM CDT Yaakov Lawrence MD PhD LAB BLOOD ORDERABL ES Final Result [facility] [place] [address] * (ABNORMAL) Iron profile w/ IBC (04/09/2025 1:06 PM CDT) [facility] Iron 60 50 - 150 mcg/dL TIBC 397 250 - 400 mcg/dL [facility] Transferrin saturation 15(L) 20 - 50 % [facility] Blood 04/09/2025 1:06 PM CDT 04/09/2025 1:40 PM CDT Yaakov Lawrence MD PhD LAB BLOOD ORDERABL ES Final Result Performing Organization Address [facility] [place] [address] * HIV 1/2 Antibody plus p24 Antigen Blood (04/09/2025 1:06 PM CDT) HIV 1/2 ab + p24 ag Nonreactive Nonreactive Comment:Nonreactive for HIV- 1 antigen and HIV-1/HIV-2 antibodies. No laboratory evidence of HIV infection. If acute HIV infection is suspected, consider testing for HIV-1 RNA. Current interpretive data was last revised on 22. Blood 04/09/2025 1:06 PM CDT 04/09/2025 1:41 PM CDT Yaakov Lawrence MD PhD LAB MICROBIOLOGY - GENERAL ORDERABLES Final Result Performing Organization Address [facility] Co de Phone Number [facility] [place] [address] * (ABNORMAL) CMV, IgG Blood (04/09/2025 1:06 PM CDT) Pathologist [facility] CMV IgG Positive( A) Negative Comment: Interpretive Data Negative - Individuals with negative CMV IgG results are presumed to not have had prior exposure or infection with CMV and are, therefore, considered susceptible to primary infection. Equivocal - Equivocal results may occur during acute infection or may be due to nonspecific binding reactions. Submit an additional sample for testing if clinically indicated. Positive - Indicates presence of detectable CMV IgG antibody. Results indicate past or recent CMV infection. Blood 04/09/2025 1:06 PM CDT 04/09/2025 1:40 PM CDT Yaakov Lawrence MD PhD LAB MICROBIOLOGY - GENERAL ORDERABLES Final Result Performing Organization Address City/[facility] Co de Phone Number [facility] [place] [address] * Hepatitis C antibody Blood (04/09/2025 1:06 PM CDT) Hep C Ab Nonreactive Nonreactive Comment:Antibodies to HCV no t detected. Does NOT exclude the possibility of recent exposure to HCV. Current interpretive data was last revised on 22 Blood 04/09/2025 1:06 PM CDT 04/09/2025 1:35 PM CDT Yaakov Lawrence MD PhD LAB MICROBIOLOGY - GENERAL ORDERABLES Final Result Performing Organization Address [facility] de Phone Number [facility] [place] [address] * (ABNORMAL) Priscilla-Lewis virus (EBV) antibody panel Blood (04/09/2025 1:06 PM CDT) EBV nuclear Ab Positive(A) Negative Comment:Indicates the presen ce of detectable IgG antibody to EBV Nuclear Antigen. EBV VCA IgG Positive(A) Negative [facility] Comment:Indicates the presen ce of antibody; 90% of the adult population will have been infected with EBV sometime in the past. EBV VCA IgM Negative Negative [facility] Comment:No detectable IgM an tibody to EBV-VCA. A negative result indicates no current infection with EBV. If clinical suspicion of acute EBV infection is present, testing should be repeated after one week. EBV interp Past Infection [facility] Blood 04/09/2025 1:06 PM CDT 04/09/2025 1:35 PM CDT Yaakov Lawrence MD PhD LAB MICROBIOLOGY - GENERAL ORDERABLES Final Result Performing Organization Address [facility] Co de Phone Number [facility] [place] [address] * Cotinine level (04/09/2025 1:06 PM CDT) Pathologist [facility] Nicotine <3.0 <3.0 ng/mL [facility] Lab Cotinine, quant, sr <3.0 <3.0 ng/mL [facility] Comment: ADDITIONAL INFORMATION This test was developed and its performance characteristics determined by [facility] in a manner consistent with CLIA requirements. This test has not been cleared or approved by the U.S. Food and Drug Administration. Test Performed by: [facility] [place] [address] Industrial Cook: Milagros Henriquez Ph.D.; CLIA# [id number] Blood 04/09/2025 1:06 PM CDT 04/09/2025 1:39 PM CDT Yaakov Lawrence MD PhD LAB BLOOD ORDERABL ES Final Result Performing Organization Address City/[facility]/ZIP Co de Phone Number [facility] [place] [address] [facility] * Hepatitis B core antibody, total Blood (04/09/2025 1:06 PM CDT) [facility] Hep B core IgG/IgM Nonreactive Nonreactive Blood 04/09/2025 1:06 PM CDT 04/09/2025 1:35 PM CDT Yaakov Lawrence MD PhD LAB MICROBIOLOGY - GENERAL ORDERABLES Final Result [facility] [place] [address] * Hepatitis C (HCV) RNA PCR, quantitative Blood (04/09/2025 1:06 PM CDT) [facility] HCV RNA result Not Detected [facility] Comment: The quantifiable range of this assay is 15 IU/mL to 100,000,000 IU/mL (1.18 log IU/mL to 8.00 log IU/mL). Testing was performed by the CARLOS 6800 HCV Test ([employer] Testing performed at [facility] Current Interpretive Data was last revised on 2021 Blood 04/09/2025 1:06 PM CDT 04/09/2025 1:22 PM CDT Yaakov Lawrence MD PhD LAB MICROBIOLOGY - GENERAL ORDERABLES Final Result Performing Organization Address [facility] de Phone Number [facility] [place] [address] [facility] * HSV 2 IgG Antibody Blood (04/09/2025 1:06 PM CDT) [facility] HSV 2 IgG Nonreactive Nonreactive Comment: Interpretive Data 1. Nonreactive: No detectable IgG antibody to HSV-2. 2. Equivocal: Presence or absence of detectable antibodies to HSV-2 cannot be determined and the test should be repeated. 3. Reactive: Indicates presence of detectable IgG antibody to HSV-2. Current interpretive data was last revised on 2023. Blood 04/09/2025 1:06 PM CDT 04/09/2025 1:40 PM CDT Yaakov Lawernce MD PhD LAB MICROBIOLOGY - GENERAL ORDERABLES Final Result Performing Organization Address [facility] Co de Phone Number [facility] [place] [address] * (ABNORMAL) HSV 1 IgG Antibody Blood (04/09/2025 1:06 PM CDT) Pathologist [facility] HSV 1 IgG Reactive( A) Nonreactive Comment: Interpretive Data 1. Nonreactive: No detectable IgG antibody to HSV-1. 2. Equivocal: Presence or absence of detectable antibodies to HSV-1 cannot be determined and the test should be repeated. 3. Reactive: Indicates presence of detectable IgG antibody to HSV-1. Current interpretive data was last revised on 2017. Blood 04/09/2025 1:06 PM CDT 04/09/2025 1:40 PM CDT Yaakov Lawrence MD PhD LAB MICROBIOLOGY - GENERAL ORDERABLES Final Result Performing Organization Address City/[facility]/ZIP Co de Phone Number [facility] [place] [address] * RPR Blood (04/09/2025 1:06 PM CDT) RPR Nonreactive Nonreactive Blood 04/09/2025 1:06 PM CDT 04/09/2025 1:41 PM CDT Yaakov Lawrence MD PhD LAB MICROBIOLOGY - GENERAL ORDERABLES Final Result Performing Organization Address [facility] Co de Phone Number [facility] [place] [address] * Hepatitis B surface antibody (immune status) Blood (04/09/2025 1:06 PM CDT) Pathologist [facility] HBsAb (immune status) Nonreactive Comment:This result is consi stent with a lack of immunity to Hepatitis B Virus when used in the setting of routine screening. Current interpretative data was last revised on 22 Blood 04/09/2025 1:06 PM CDT 04/09/2025 1:35 PM CDT Yaakov Lawrence MD PhD LAB MICROBIOLOGY - GENERAL ORDERABLES Final Result Performing Organization Address City/[facility] Co de Phone Number [facility] [place] [address] * Hepatitis B Surface Antigen Blood (04/09/2025 1:06 PM CDT) HepBsAg Nonreactive Nonreactive Blood 04/09/2025 1:06 PM CDT 04/09/2025 1:35 PM CDT Yaakov Lawrence MD PhD LAB MICROBIOLOGY - GENERAL ORDERABLES Final Result Performing Organization Address [facility] Co de Phone Number [facility] [place] [address] * (ABNORMAL) Type and screen (04/09/2025 1:06 PM CDT) ABO Rh O Positive Poppy, indirect Positive(A) [facility] Blood 04/09/2025 1:06 PM CDT 04/09/2025 1:32 PM CDT Narrative [facility] - 04/09/2025 3:23 PM CDT Has the patient had Daratumumab or Isatuximab in the past 6 months?->Unknown Yaakov Lawrence MD PhD LAB BLOOD BANK WICHO T ORDERABLES Final Result Performing Organization Address [facility] [place] [address] * Varicella Zoster IgG antibody Blood (04/09/2025 1:06 PM CDT) Pathologist [facility] VZV IgG Reactive Reactive Comment:Reactive: Results treadwell ggest response to immunization or prior exposure to the virus. Blood 04/09/2025 1:06 PM CDT 04/09/2025 1:40 PM CDT Yaakov Lawrence MD PhD LAB MICROBIOLOGY - GENERAL ORDERABLES Final Result Performing Organization Address [facility] Co de Phone Number [place], [place] [id number] * TSH (04/09/2025 1:06 PM CDT) Pathologist [facility] Thyroid Stimulating Hormone 1.35 0.30 - 4.20 mcIUnit/mL Blood 04/09/2025 1:06 PM CDT 04/09/2025 1:40 PM CDT Yaakov Lawrence MD PhD LAB BLOOD ORDERABL ES Final Result Performing Organization Address [facility] [place] [address] * PSA diagnostic (04/09/2025 1:06 PM CDT) PSA-Total 0.41 <=5.40 ng/mL Comment: Interpretive Data AGE SEX REFERENCE INTERVAL 0 minutes-150 years Female None 0 minutes-49 years Male None 50-59 years Male 0-3.90 60-69 years Male 0-5.40 70-79 years Male 0-6.20 80-150 years Male 0-6.20 The Lucas PSA Total assay procedure was used. Results from different manufacturers or methods may not be comparable. Serial testing should be performed using the same method. Current interpretive data last revised 22. Blood 04/09/2025 1:06 PM CDT 04/09/2025 1:40 PM CDT Yaakov Lawrence MD PhD LAB BLOOD ORDERABL ES Final Result Performing Organization Address [facility] de Phone Number [facility] [place] [address] * (ABNORMAL) Hemoglobin A1c (04/09/2025 1:06 PM CDT) Hgb A1C 7.1(H) 4.0 - 5.6 % Estimated Average Glucose 157 mg/dL [facility] Comment: The ADA recommends reporting an estimated Average Glucose (eAG) with all Hemoglobin A1c results using the equation derived from a study of 507 normal and diabetic adults. Minority populations were underrepresented and children were not included. (Diabetes Care 2020; 43(S1): S66-S76). The eAG is not equivalent to a fasting glucose. Blood 04/09/2025 1:06 PM CDT 04/09/2025 1:39 PM CDT Yaakov Lawrence MD PhD LAB BLOOD ORDERABL ES Final Result Performing Organization Address [facility] de Phone Number [facility] [place] [address] * Ferritin (04/09/2025 1:06 PM CDT) Ferritin 43 30 - 400 ng/mL Blood 04/09/2025 1:06 PM CDT 04/09/2025 1:40 PM CDT Yaakov Lawrence MD PhD LAB BLOOD ORDERABL ES Final Result Performing Organization Address [facility] Phone Number [facility] [place] [address] * Lipid panel (04/09/2025 1:06 PM CDT) Cholesterol 141 30 - 199 mg/dL Comment: Interpretive Data Ages < or = 19 years Acceptable: <170 mg/dL Borderline high: 170-199 mg/dL High: >or= 200 mg/dL Ages > or = 20 years Desirable: <200 mg/dL Borderline high: 200-239 mg/dL High: >or= 240 mg/dL Literature References: 1. Expert Panel on Integrated Guidelines for Cardiovascular Health and Risk Reduction in Children and Adolescents. Pediatrics 2011;128:S213 2. NCEP Expert Panel. Circulation 2004;110:227 Current Interpretive Data was last revised on 2018. Triglycerides 76 <=149 mg/dL [facility] Comment: Interpretive Data Ages < or = 9 years Acceptable: <75 mg/dL Borderline high: 75-99 mg/dL High: >or= 100 mg/dL Ages 10 to 20 years Acceptable: <90 mg/dL Borderline high: 90-129 mg/dL High: >or= 130 mg/dL Ages > or = 20 years Desirable: <150 mg/dL Borderline high: 150-199 mg/dL High: 200-499 mg/dL Very high: >or= 499 mg/dL Literature References: 1. Expert Panel on Integrated Guidelines for Cardiovascular Health and Risk Reduction in Children and Adolescents. Pediatrics 2011;128:S213 2. NCEP Expert Panel. Circulation 2004;110:227 Current Interpretive Data was last revised on 2018. HDL 45 >=40 mg/dL [facility] Comment: Interpretive Data Ages < or = 19 years Acceptable: >45 mg/dL Borderline low: 40-45 mg/dL Low: <40 mg/dL Ages > or = 20 years Desirable: >or= 60 mg/dL Low: <40 mg/dL Literature References: 1. Expert Panel on Integrated Guidelines for Cardiovascular Health and Risk Reduction in Children and Adolescents. Pediatrics 2011;128:S213 2. NCEP Expert Panel. Circulation 2004;110:227 Current Interpretive Data was last revised on 2018. LDL, calculated 81 <=129 mg/dL DUL[facility] MARIA [facility] Comment: Interpretive Data Ages < or = 19 years Acceptable: <110 mg/dL Borderline high: 110-129 mg/dL High: >or= 130 mg/dL Ages > or = 20 years Optimal: <100 mg/dL Near optimal: 100-129 mg/dL Borderline high: 130-159 mg/dL High: >160 mg/dL Calculated using the Cristino LDL-C estimating equation. This equation was implemented on 2024. Prior to this date LDL-C was estimated using the Friedewald equation. Literature References: 1. Expert Panel on Integrated Guidelines for Cardiovascular Health and Risk Reduction in Children and Adolescents. Pediatrics 2011;128:S213 2. NCEP Expert Panel. Circulation 2004;110:227 3. Cristino Nava. MARYANNE Cardiol. 2020 March 21;5(5):540-548. doi: 10.1001/[email or web address].2020.0013 Current Interpretive Data was last revised on 2024. Non-HDL Cholesterol 96 mg/dL [facility] MAR[facility] Comment: Interpretive Data Ages < or = 19 years Acceptable: <120 mg/dL Borderline high: 120-144 mg/dL High: >145 mg/dL Ages > or = 20 years When triglycerides are >200 mg/dL, Non-HDL cholesterol is a secondary target of therapy with treatment goals that are 30 mg/dL greater than the LDL cholesterol target. Literature References: 1. Expert Panel on Integrated Guidelines for Cardiovascular Health and Risk Reduction in Children and Adolescents. Pediatrics 2011;128:S213 2. NCEP Expert Panel. Circulation 2004;110:227 Current Interpretive Data was last revised on 2018. Chol[facility]HDL ratio 3 [facility] Blood 04/09/2025 1:06 PM CDT 04/09/2025 1:40 PM CDT Yaakov Lawrence MD PhD LAB BLOOD ORDERABL ES Final Result Performing Organization Address City/[facility]/ZIP Co de Phone Number DULCE MARIA AR[facility]DA [facility] [place] [address] * HLA Antibody Screen by PRA or SAB per Schedule (Class I and Class II) (04/09/2025 12:59 PM CDT) Blood 04/09/2025 12:5 9 PM CDT Narrative [facility] - COLUMNIST/COMMENTATOR Sample received in lab. Single Antigen Antibody Screen and PRA Screen ordered. Yaakov Lawrence MD PhD LAB BLOOD ORDERABL ES Final Result Performing Organization Address City/[facility]/ZIP Co de Phone Number [facility] * HLA Antibody Screen - PRA (Class I and Class II) (04/09/2025 12:59 PM CDT) Class I Treatment Untreated [facility] Class I Dilution 1:1 [facility] Class I Tested Date 04/09/2025 [facility] Class I Result Negative [facility] Class I Percent Positive 0 [facility] Class II Treatment Untreated [facility] Class II Dilution 1:1 [facility] Class II Tested Date 04/10/2025 [facility] Class II Result Negative [facility] Class II Percent Positive 0 [facility] 04/09/2025 12:5 9 PM CDT 04/11/2025 8:39 AM CDT Narrative [facility] - 04/11/2025 8:39 AM CDT PRA (panel reactive antibody) HLA antibody screen is performed on serum samples using a method developed and validated by the [facility] HLA laboratory based on an FDA- approved IVD kit (LABScreen PRA, [employer], [place], [place]). Interpretive comments: The percentage of beads with MFI > 750 is reported, which indicates the percentage of donor population estimated to be incompatible with the patient tested. PRA > 0% is consistent with alloimmunization to HLA. Testing performed at the [facility], [address] [place] [address], 5th floor, [place], [address]. CLIA # [id number]. Myrna Pendleton, Ph.D., Mobile Heavy Equipment Operator, HLA Laboratory Zach Bermudez M.D., Ph.D., Microstrategy Developer, HLA Laboratory Dona Cota, Ph.D., CLIA Microstrategy Developer, [facility] Current methodology and interpretive comments last revised on 03/15/2018. Yaakov Lawrence MD PhD LAB BLOOD ORDERABL ES Final Result [facility] * HLA Antibody Screen - SAB (Class I and Class II) (04/09/2025 12:59 PM CDT) Class I Treatment EDTA [facility] Class I Dilution 1:1 [facility] Class I Tested Date 04/09/2025 [facility] Class I Result Negative [facility] Class I CPRA 0 [facility] Class II Treatment EDTA [facility] Class II Dilution 1:1 [facility] Class II Tested Date 04/09/2025 [facility] Class II Result Negative [facility] Class II CPRA 0 [facility] 04/09/2025 12:5 9 PM CDT 04/10/2025 8:51 AM CDT Narrative [facility] - 04/10/2025 8:51 AM CDT Single-antigen HLA antibody screen is performed on serum samples using a method developed and validated by the [facility] HLA laboratory based on an FDA-approved IVD kit (LABScreen Single-Antigen, [employer], [place], [place]). All patient serum samples are pretreated with EDTA before the screen to prevent complement interference. Additional serum treatments, such as adsorption and DTT treatment, may be performed as indicated. Interpretive comments: Low risk: MFI [id number]. Moderate risk: MFI [id number]. Increased risk: MFI >/= 5000. The presence of an antigen in two or more risk categories may indicate a mixed reactivity pattern among beads of multiple subtypes. Preformed donor-specific antibodies (DSA) with MFI above 2000 are predictive of positive cytotoxicity crossmatch (Hum Immunol 2010;71:268-73. Hum Immunol 2012;73:497- 604) and carry a higher risk of humoral rejection. For our solid-organ transplant programs, unacceptable antigens (UA) for transplant candidates are defined by MFI >/= 2000 with some exceptions. UA are listed at [facility] and used to generate calculated PRA (cPRA) rounded to the nearest integer. In the post-transplant setting, MFI values from donor-specific beads are listed in the DSA report to provide additional information. It is important to note that this test is approved as a qualitative test and the MFI values are not strictly linear. For platelet refractoriness: An empirical cutoff value of MFI >/= 2000 has been used in our center; a higher cutoff value such as 5000 may also be suitable for highly sensitized patients to prioritize the antigens to avoid. Testing performed at the [facility], [address] [place] [address], 5th floor, [place], [address]. [facility] # [id number]. Myrna Pendleton, Ph.D., Mobile Heavy Equipment Operator, HLA Laboratory Zach Bermudez M.D., Ph.D., Microstrategy Developer, HLA Laboratory Dona Cota, Ph.D., CLIA Microstrategy Developer, [facility] Current methodology and interpretive comments last revised on 12/16/2022. us Yaakov Lawrence MD PhD LAB BLOOD ORDERABL ES Final Result [facility] * Pulmonary Function Test -[facility]; Standard; Spirometry, Spirometry w/bronchodilator, DLCO and Lung Volumes (04/09/2025 11:50 AM CDT) FVC PRE 3.12 L [facility] FVC %PRE PRED 66 % [facility] FVC POST 3.16 L [facility] FVC %POST PRED 67 % [facility] FEV1 PRE 2.45 L [facility] FEV1 %PRE PRED 68 % [facility] FEV1 POST 2.66 L [facility] FEV1 %POST PRED 74 % [facility] FEV1/FVC PRE 78.6 % [facility] FEV1/FVC POST 84.2 % [facility] FRC PL PRE 3.12 L [facility] FRC PL %PRE PRED 80 % [facility] RV PRE 1.88 L [facility] RV %PRE PRED 79 % [facility] TLC PRE 5.18 L [facility] TLC %PRE PRED 69 % [facility] [place] [facility] PRE 20.2 ml/min/mmH g [facility] %PRE PRED 69 % [facility] Anatomical Region Laterality Modality PFT 04/09/2025 11:3 0 AM CDT Narrative 04/09/2025 12:26 PM CDT Patient Location:->[facility] Main [place] Standard:->Spirometry, Spirometry w/bronchodilator, DLCO and Lung Volumes Pulmonary Function Test Interpretation SPIROMETRY: The FEV1 and FVC are reduced in a pattern suggestive of a restrictive abnormality. There is no significant improvement after inhaling a single dose of albuterol. The inspiratory loop is appropriate for the expiratory flow abnormality. LUNG VOLUMES: TLC measured by plethysmography is decreased. DLCO: The diffusing capacity corrected for hemoglobin level (DLCO ADJ) is within normal limits. Impression: There is a mild restrictive ventilatory defect. There is no impairment of alveolar gas exchange by DLCO. Compared with most recent study, there has been no significant interval change. The attending pulmonary physician certifies a physician presence in the [facility] during the administration of aerosolized bronchodilator. The attending pulmonary physician certifies that he/she has reviewed and interpreted the graphic and numerical data of this pulmonary function study and agrees with the written final report. The lower limit of normal for PaO2 and %HbO2 is age dependent. However, the [facility] defines hypoxemia as a PaO2 <56 mm Hg or a %HbO2 <89%. Starting on November of 2024 the [facility] utilizes race neutral [employer] normative equations. us Blake Peña SWEET POTATO DISINTEGRATOR PFT ORDERABLES Final Resu lt * US Carotids Duplex Bilateral (04/09/2025 10:37 AM CDT) Anatomical Region Laterality Modality Vascular Bilateral Ultrasound 04/09/2025 9:16 AM CDT Narrative 04/09/2025 9:09 PM CDT [facility] - Department of Vascular Surgery, Vascular Laboratory [address] [place] [id number] Carotid Duplex Ultrasound Report Patient Name: GOSIA ZUNIGA : 1965 (59y 11m) Study Date: 04/09/2025 9:16:16 AM Gender: M Tech: Location: [id number] Ref Provider: BLAKE PEÑA Quality: Adequate Order Provider: BLAKE PEÑA PROCEDURES: Carotid Report: Carotid duplex examination of the extracranial arteries was performed using 2D, color and spectral Doppler. INDICATIONS: Encounter for Other Preprocedural Exam Amaurosis fugax. MEASUREMENTS: Right Value Units Left Value Units RT Prox CCA PSV 100 cm/sec LT Prox CCA PSV 101 cm/sec RT Prox CCA EDV 17 cm/sec LT Prox CCA EDV 20 cm/sec RT Distal CCA PSV 96 cm/sec LT Distal CCA PSV 95 cm/sec RT Distal CCA EDV 21 cm/sec LT Distal CCA EDV 17 cm/sec RT Prox ICA PSV 76 cm/sec LT Prox ICA PSV 79 cm/sec RT Prox ICA EDV 21 cm/sec LT Prox ICA EDV 23 cm/sec RT Mid ICA PSV 72 cm/sec LT Mid ICA PSV 80 cm/sec RT Mid ICA EDV 22 cm/sec LT Mid ICA EDV 27 cm/sec RT Distal ICA PSV 71 cm/sec LT Distal ICA PSV 71 cm/sec RT Distal ICA EDV 20 cm/sec LT Distal ICA EDV 22 cm/sec RT ECA Prx PSV 82 cm/sec LT ECA Prx PSV 79 cm/sec RT ICA/CCA 0.79 ratio LT ICA/CCA 0.84 ratio RT VERT PSV 54 cm/sec LT VERT PSV 51 cm/sec FINDINGS: Performing Pack Mule Worker: Erlin Ludwig RVT. Rt Internal Carotid Artery: The plaque in the right internal carotid artery appears to be Smooth. Atherosclerotic changes of the right internal carotid artery without hemodynamically significant Doppler findings. <50% stenosis. Rt Vertebral Artery: The right vertebral artery is patent with antegrade flow. Lt Internal Carotid Artery: Atherosclerotic changes of the left internal carotid artery without hemodynamically significant Doppler findings. <50% stenosis. Lt Vertebral Artery: The left vertebral artery is patent with antegrade flow. Comments: Abnormal cardiac rhythm noted throughout the exam. CONCLUSIONS: 1. The right internal carotid artery disease is consistent with a less than 50% stenosis. 2. The left internal carotid artery disease is consistent with a less than 50% stenosis. 3. Normal, antegrade flow is noted in bilateral vertebral arteries. HISTORY: HTN; lambda AL amyloidosis; HFrEF. PREVIOUS STUDIES: No previous studies for comparison. DISCLAIMER: The study images and the final report will be retained in the patient chart by the Vascular Laboratory for the legally required time period. This chart constitutes the legal record of any testing performed. ATTESTATION: I have reviewed and interpreted the pertinent images and measurements of this study. I attest to the conclusions in the final report that is provided above. Electronically Signed By: Imtiaz Rodriguez MD FACS 04/09/2025 8:15:13 PM CDT Procedure Note Imtiaz Rodriguez MD - 04/09/2025 [facility] - Department of Vascular Surgery,Vascular Laboratory [address] [place] [id number] Carotid Duplex Ultrasound Report Patient Name: GOSIA ZUNIGA : 1965 (59y 11m) Study Date: 04/09/2025 9:16:16 AM Gender: M Tech: Location: [id number] Ref Provider: BLAKE PEÑA Quality: Adequate Order Provider: BLAKE PEÑA PROCEDURES: Carotid Report: Carotid duplex examination of the extracranial arterieswas performed using 2D, color and spectral Doppler. INDICATIONS: Encounter for Other Preprocedural Exam Amaurosis fugax. MEASUREMENTS: Right Value Units Left Value Units RT Prox CCA PSV 100 cm/sec LT Prox CCA PSV 101 cm/sec RT Prox CCA EDV 17 cm/sec LT Prox CCA EDV 20 cm/sec RT Distal CCA PSV 96 cm/sec LT Distal CCA PSV 95 cm/sec RT Distal CCA EDV 21 cm/sec LT Distal CCA EDV 17 cm/sec RT Prox ICA PSV 76 cm/sec LT Prox ICA PSV 79 cm/sec RT Prox ICA EDV 21 cm/sec LT Prox ICA EDV 23 cm/sec RT Mid ICA PSV 72 cm/sec LT Mid ICA PSV 80 cm/sec RT Mid ICA EDV 22 cm/sec LT Mid ICA EDV 27 cm/sec RT Distal ICA PSV 71 cm/sec LT Distal ICA PSV 71 cm/sec RT Distal ICA EDV 20 cm/sec LT Distal ICA EDV 22 cm/sec RT ECA Prx PSV 82 cm/sec LT ECA Prx PSV 79 cm/sec RT ICA/CCA 0.79 ratio LT ICA/CCA 0.84 ratio RT VERT PSV 54 cm/sec LT VERT PSV 51 cm/sec FINDINGS: Performing Pack Mule Worker: EZ EdmondT. Rt Internal Carotid Artery: The plaque in the right internal carotidartery appears to be Smooth. Atherosclerotic changes of the right internal carotid arterywithout hemodynamically significant Doppler findings. <50% stenosis. Rt Vertebral Artery: The right vertebral artery is patent with antegradeflow. Lt Internal Carotid Artery: Atherosclerotic changes of the left internalcarotid artery without hemodynamically significant Doppler findings. <50% stenosis. Lt Vertebral Artery: The left vertebral artery is patent with antegradeflow. Comments: Abnormal cardiac rhythm noted throughout the exam. CONCLUSIONS: 1. The right internal carotid artery disease is consistent with a lessthan 50% stenosis. 2. The left internal carotid artery disease is consistent with a less than50% stenosis. 3. Normal, antegrade flow is noted in bilateral vertebral arteries. HISTORY: HTN; lambda AL amyloidosis; HFrEF. PREVIOUS STUDIES: No previous studies for comparison. DISCLAIMER: The study images and the final report will be retained in the patientchart by the Vascular Laboratory for the legally required time period. This chartconstitutes the legal record of any testing performed. ATTESTATION: I have reviewed and interpreted the pertinent images and measurements ofthis study. I attest to the conclusions in the final report that is provided above. Electronically Signed By: Imtiaz Rodriguez MD, FACS 04/09/2025 8:15:13 PM CDT us Blake Peña SWEET POTATO DISINTEGRATOR IMG US PROCEDURES Final Re sult * US SOURAV (04/09/2025 10:12 AM CDT) Anatomical Region Laterality Modality Vascular N/A Ultrasound 04/09/2025 9:12 AM CDT Narrative 04/09/2025 11:05 AM CDT [facility] - Department of Vascular Surgery, Vascular Laboratory [address] [place] [id number] Lower Extremity Arterial Doppler Report Patient Name: GOSIA ZUNIGA : 1965 Study Date: 04/09/2025 9:12:00 AM Gender: M Tech: Kaylah Boswell RVT, RDMS Location: [id number] Ref Provider: BLAKE PEÑA Quality: Adequate Order Provider: BLAKE PEÑA PROCEDURES: Arterial Report: Ankle - Brachial Index Doppler exam. INDICATIONS: Encounter for Other Preprocedural Exam. MEASUREMENTS: Right Value Units Left Value Units Rt Brachial Pressure 93 mmHg Lt Brachial Pressure 99 mmHg Rt SENIOR ORACLE SOA DEVELOPER Pressure 126 mmHg Lt SENIOR ORACLE SOA DEVELOPER Pressure 113 mmHg Rt DPA Pressure 110 mmHg Lt DPA Pressure 110 mmHg Rt 1st Digit Pressure 109 mmHg Lt 1st Digit Pressure 80 mmHg Rt PT SOURAV Resting 1.27 Lt PT SOURAV Resting 1.14 Rt AT SOURAV Resting 1.11 Lt AT SOURAV Resting 1.11 Rt Digit/Arm Index 1.1 Lt Digit/Arm Index 0.81 Right Value Units Left Value Units FINDINGS: Performing Pack Mule Worker: Kaylah Boswell RDMS, RVT. Right Posterior Tibial Artery Analysis: The posterior tibial waveform is multiphasic. Right Anterior Tibial Artery Analysis: The anterior tibial waveform is multiphasic. Left Posterior Tibial Artery Analysis: The posterior tibial waveform is multiphasic. Left Anterior Tibial Artery Analysis: The anterior tibial waveform is multiphasic. Comments: Limited study due to physician request. CONCLUSIONS: 1. The above listed Ankle/Brachial Indices at rest are within normal limits bilaterally (for reference, normal resting SOURAV is 0.9 to 1.4; SOURAV >1.4 due to non- compressible arteries is not diagnostic). 2. Bilateral Digit/Arm Indices are within normal limits (for reference, normal IVY is >0.6). HISTORY: HTN; lambda AL amyloidosis; HFrEF. PREVIOUS STUDIES: No previous studies for comparison. DISCLAIMER: The study images and the final report will be retained in the patient chart by the Vascular Laboratory for the legally required time period. This chart constitutes the legal record of any testing performed. ATTESTATION: I have reviewed and interpreted the pertinent images and measurements of this study. I attest to the conclusions in the final report that is provided above. Electronically Signed By: Imtiaz Rodriguez MD FACS 04/09/2025 10:27:28 AM CDT Procedure Note Imtiaz Rodriguez MD - 04/09/2025 [facility] - Department of Vascular Surgery,Vascular Laboratory [address] [place] [address] Lower Extremity Arterial Doppler Report Patient Name: GOSIA ZUNIGA : 1965 Study Date: 04/09/2025 9:12:00 AM Gender: M Tech: Kaylah Boswell RVT, [facility] Location: [id number] Ref Provider: BLAKE PEÑA Quality: Adequate Order Provider: BLAKE PEÑA PROCEDURES: Arterial Report: Ankle - Brachial Index Doppler exam. INDICATIONS: Encounter for Other Preprocedural Exam. MEASUREMENTS: Right Value Units Left Value Units Rt Brachial Pressure 93 mmHg Lt Brachial Pressure 99 mmHg Rt SENIOR ORACLE SOA DEVELOPER Pressure 126 mmHg Lt SENIOR ORACLE SOA DEVELOPER Pressure 113 mmHg Rt DPA Pressure 110 mmHg Lt DPA Pressure 110 mmHg Rt 1st Digit Pressure 109 mmHg Lt 1st Digit Pressure 80 mmHg Rt PT SOURAV Resting 1.27 Lt PT SOURAV Resting 1.14 Rt AT SOURAV Resting 1.11 Lt AT SOURAV Resting 1.11 Rt Digit/Arm Index 1.1 Lt Digit/Arm Index 0.81 Right Value Units Left Value Units FINDINGS: Performing Pack Mule Worker: Kaylah Boswell RDMS, SHERYL. Right Posterior Tibial Artery Analysis: The posterior tibial waveform is multiphasic. Right Anterior Tibial Artery Analysis: The anterior tibial waveform is multiphasic. Left Posterior Tibial Artery Analysis: The posterior tibial waveform is multiphasic. Left Anterior Tibial Artery Analysis: The anterior tibial waveform is multiphasic. Comments: Limited study due to physician request. CONCLUSIONS: 1. The above listed Ankle/Brachial Indices at rest are within normallimits bilaterally (for reference, normal resting SOURAV is 0.9 to 1.4; SOURAV >1.4 due tonon- compressible arteries is not diagnostic). 2. Bilateral Digit/Arm Indices are within normal limits (for reference,normal IVY is >0.6). HISTORY: HTN; lambda AL amyloidosis; HFrEF. PREVIOUS STUDIES: No previous studies for comparison. DISCLAIMER: The study images and the final report will be retained in the patientchart by the Vascular Laboratory for the legally required time period. This chartconstitutes the legal record of any testing performed. ATTESTATION: I have reviewed and interpreted the pertinent images and measurements ofthis study. I attest to the conclusions in the final report that is provided above. Electronically Signed By: Imtiaz Rodriguez MD [facility] 04/09/2025 10:27:28 AM CDT us Blake Peña NP IMG US PROCEDURES Final Re sult * (ABNORMAL) aPTT (04/09/2025 8:11 AM CDT) aPTT 89(H) 28 - 38 sec Comment: Interpretive Data Heparin therapeutic range: 66.0 - 100.0 seconds. Range based on correlation with therapeutic heparin activity range of 0.3 - 0.7 Units/mL. Current interpretive data was last revised on 2023. Blood 04/09/2025 8:11 AM CDT 04/09/2025 9:01 AM CDT Narrative MELISATRACEY MANOJ - 04/09/2025 9:23 AM CDT STAT PTT timing: - Draw 6 hours after heparin infusion initiation - Draw 6 hours after every dose change until 2 consecutive PTTs are therapeutic - Once 2 consecutive PTTs are therapeutic, obtain with daily labs until infusion is discontinued - - Restart every 6 hour lab draws and follow instructions accordingly if PTT is outside of therapeutic range Do not draw lab from IV line that is actively infusing heparin. Use the opposite arm. If arm with actively infusing heparin must be used, pause the infusion for at least 2 minutes, and draw specimen below the IV site. For patients with a central venous catheter (CVC), lab must be drawn peripherally (not from CVC). us Libia Suarez NP LAB BLOOD ORDERABLES Final Re sult DULCE MARIA ARANDA [facility] [place] [address] * eGFR (04/09/2025 1:45 AM CDT) eGFR 60 >=60 mL/min/1. 73 m2 Comment: Interpretive Data Reference Interval Normal >/= 90 mL/min/1.73m2 Mildly decreased* 60 - 89 mL/min/1.73m2 Mildly to moderately decreased 45 - 59 mL/min/1.73m2 Moderately to severely decreased 30 - 44 mL/min/1.73m2 Severely decreased 15 - 29 mL/min/1.73m2 Kidney Failure < 15 mL/min/1.73m2 *Relative to young adult level Estimated glomerular filtration rate is determined by the 2020 CKD-EPI equation recommended by the National Kidney [employer] (A Unifying Approach to GFR Estimation: Recommendations of the NKF-ASK Task Force on Reassessing the Inclusion of Race in Diagnosing Kidney Disease, JASN 2020). The CKD-EPI equation should not be used for patients with unstable renal function and has not been validated in children and those over 70. Current interpretive data was last reviewed 2021. Blood 04/09/2025 1:45 AM CDT 04/09/2025 2:14 AM CDT Blake Peña SWEET POTATO DISINTEGRATOR LAB BLOOD ORDERABLES Final Result [facility] [place] [address] * (ABNORMAL) aPTT (04/09/2025 1:45 AM CDT) aPTT 87(H) 28 - 38 sec Comment: Interpretive Data Heparin therapeutic range: 66.0 - 100.0 seconds. Range based on correlation with therapeutic heparin activity range of 0.3 - 0.7 Units/mL. Current interpretive data was last revised on 2023. Blood 04/09/2025 1:45 AM CDT 04/09/2025 2:46 AM CDT Narrative DULCE MARIA [facility] - 04/09/2025 2:56 AM CDT STAT PTT timing: - Draw 6 hours after heparin infusion initiation - Draw 6 hours after every dose change until 2 consecutive PTTs are therapeutic - Once 2 consecutive PTTs are therapeutic, obtain with daily labs until infusion is discontinued - - Restart every 6 hour lab draws and follow instructions accordingly if PTT is outside of therapeutic range Do not draw lab from IV line that is actively infusing heparin. Use the opposite arm. If arm with actively infusing heparin must be used, pause the infusion for at least 2 minutes, and draw specimen below the IV site. For patients with a central venous catheter (CVC), lab must be drawn peripherally (not from CVC). us Libia Suarez SWEET POTATO DISINTEGRATOR LAB BLOOD ORDERABLES Final Re sult Performing Organization Address City/[facility]/ZIP Co de Phone Number [facility] [place] [address] * (ABNORMAL) CBC without differential (04/09/2025 1:45 AM CDT) [facility] WBC 10.44(H) 3.80 - 9.90 K/cumm Hgb 13.8 13.0 - 17.5 g/dL [facility] Hct 42.5 38.9 - 50.3 % [facility] Plt 180 150 - 400 K/cumm [facility] MPV 11.3 9.1 - 12.[address] [facility] RBC 5.13 4.30 - 5.80 M/cumm [facility] MCV 82.8 81.3 - 96.[address] [facility] MCH 26.9(L) 27.1 - 33.[address] [facility] MCHC 32.5 32.3 - 35.7 g/dL [facility] RDW CV 15.6(H) 11.1 - 14.9 % [facility] RDW SD 46.6 35.7 - 48.[address] [facility] NRBC abs 0.00 0.00 - 0.01 K/cumm [facility] Blood 04/09/2025 1:45 AM CDT 04/09/2025 2:14 AM CDT us Blake Peña SWEET POTATO DISINTEGRATOR LAB BLOOD ORDERABLES Final Result Performing Organization Address [facility]/ZIP Co de Phone Number [facility] [place] [address] * Magnesium (04/09/2025 1:45 AM CDT) Magnesium 2.2 1.4 - 2.5 mg/dL Blood 04/09/2025 1:45 AM CDT 04/09/2025 2:14 AM CDT Blake Peña SWEET POTATO DISINTEGRATOR LAB BLOOD ORDERABLES Final Result Performing Organization Address [facility] de Phone Number [facility] [place] [address] * (ABNORMAL) Basic metabolic panel (04/09/2025 1:45 AM CDT) Pathologist [facility] Sodium 140 135 - 145 mmol/L Potassium, pl 3.9 3.3 - 4.9 mmol/L [facility] Chloride 104 97 - 110 mmol/L [facility] CO2 26 22 - 32 mmol/L [facility] Anion gap 10 2 - 15 mmol/L [facility] BUN 28(H) 6 - 25 mg/dL [facility] Creatinine 1.35(H) 0.80 - 1.30 mg/dL [facility] Glucose 118 70 - 199 mg/dL [facility] Comment: Interpretive Data Fasting glucose >/= 126 mg/dl is diagnostic for diabetes. Fasting is defined as no caloric intake for at least 8 hours. Fasting glucose between 100 mg/dl to 125 mg/dl is diagnostic of prediabetes. In a patient with classic symptoms of hyperglycemia or hyperglycemic crisis, a random glucose >/= 200 mg/dl is diagnostic for diabetes. In the absence of unequivocal hyperglycemia, results should be confirmed by repeat testing. The classification and Diagnosis of Diabetes Diabetes Care 2021; 46: S19-S40. Current interpretive data was last revised 2022. Calcium 9.6 8.5 - 10.3 mg/dL [facility] Blood 04/09/2025 1:45 AM CDT 04/09/2025 2:14 AM CDT Blake Peña SWEET POTATO DISINTEGRATOR LAB BLOOD ORDERABLES Final Result [facility] [place] [address] * CT Chest Abdomen Pelvis WO Contrast (04/08/2025 10:53 PM CDT) Anatomical Region Laterality Modality Body N/A Computed Tomogra phy 04/09/2025 8:14 AM CDT Impressions 04/09/2025 8:14 AM CDT 1. Location of vasculature posterior to sternum as described above. 2. Abdominal aortic, common iliac, external iliac, and femoral artery measurements in preparation for minimally invasive cannulation procedure as described above. 3. Cardiomegaly with findings of volume overload including small bilateral pleural effusions, mild pulmonary edema, trace ascites and mesenteric and body wall edema. 4. Stable mild peripheral reticulation in both lungs in keeping with a non-fibrotic interstitial lung abnormality. Electronically signed by: Dmitry Armas MD, PHD Narrative 04/09/2025 8:14 AM CDT EXAMINATION: CT of the chest, abdomen, and pelvis without contrast with 3D rendering HISTORY: Pre-operative evaluation for advanced heart failure therapies. TECHNIQUE: CT of the chest, abdomen, and pelvis was performed without intravenous contrast. Images were transferred to an independent workstation for additional 3D post-processing. COMPARISON: CT abdomen pelvis 04/26/2024, CT chest 08/09/2023 FINDINGS: Measurements: Sternal measurements: - The mid manubrium is 1 mm anterior to the left brachiocephalic vein. - The proximal sternum is 20 mm anterior to the ascending aorta. - The mid sternum is 4 mm anterior to the right ventricle. - The distal sternum is 3 mm anterior to the right ventricle. Abdominal aortic and pelvic arterial smallest diameter measurements (made from centerline curved MPRs): - Infrarenal aorta: 19 mm x 20 mm. There is mild calcification. - Right common iliac artery: 10 mm x 10 mm. There is no calcification. - Left common iliac artery: 10 mm x 12 mm. There is mild calcification. - There is mild tortuosity of the bilateral common iliac arteries. This is equal in distribution. - Right external iliac artery: 8 mm x 9 mm. There is no calcification. - Left external iliac artery: 8 mm x 8 mm. There is no calcification. - There is moderate tortuosity of the bilateral external iliac arteries. This is equal in distribution. - Right common femoral artery: 9 mm. There is no calcification. - Left common femoral artery: 9 mm. There is no calcification. - There is mild tortuosity of the bilateral femoral arteries. This is equal in distribution. Other findings: Chest: - Atherosclerosis in the ascending aorta: Minimal calcified atherosclerosis at the sinotubular junction. - Atherosclerosis in the descending aorta: Minimal calcified atherosclerosis at the isthmus. Moderate cardiomegaly. The cardiac apex is at the 6th intercostal space. Small pericardial effusion. Moderate burden of calcified coronary artery disease. The thoracic aorta is normal in caliber. Enlarged multinodular right thyroid lobe. No supraclavicular or axillary lymphadenopathy. No pathologically enlarged mediastinal or hilar lymph nodes. There are small bilateral pleural effusions but no pneumothorax. Mild septal line thickening in keeping with trace pulmonary edema. There is otherwise stable peripheral upper lobe predominant reticulation in keeping with a non-fibrotic interstitial lung abnormality. No pneumonic consolidation. 3 mm left apical pulmonary nodule (table position 7.2). 4 mm left lower lobe nodule (table position -162.8). These are unchanged compared to 11/02/2022. No suspicious pulmonary nodule. Abdomen/pelvis: Mildly nodular liver surface morphology. Gallbladder is absent. No bile duct dilatation. Normal noncontrast appearance of the pancreas and spleen. No adrenal mass or nodule. There is no hydronephrosis in either kidney. No renal calculi. Urinary bladder is within normal limits. Trace ascites. No pneumoperitoneum. There is mesenteric and retroperitoneal edema. The appendix is normal. Large and small bowel are normal in caliber without obstruction. Abdominal aorta is normal in caliber. Upper retroperitoneal lymph nodes at the upper limits of normal or likely reactive. No pathologically enlarged lymph nodes in the abdomen or pelvis. Diffuse body wall edema. No suspicious lytic or blastic lesion. Procedure Note Dmitry Armas MD PhD - 04/09/2025 EXAMINATION: CT of the chest, abdomen, and pelvis without contrast with 3D rendering HISTORY: Pre-operative evaluation for advanced heart failure therapies. TECHNIQUE: CT of the chest, abdomen, and pelvis was performed without intravenous contrast. Images were transferred to an independent workstation for additional 3D post-processing. COMPARISON: CT abdomen pelvis 04/26/2024, CT chest 08/09/2023 FINDINGS: Measurements: Sternal measurements: - The mid manubrium is 1 mm anterior to the left brachiocephalic vein. - The proximal sternum is 20 mm anterior to the ascending aorta. - The mid sternum is 4 mm anterior to the right ventricle. - The distal sternum is 3 mm anterior to the right ventricle. Abdominal aortic and pelvic arterial smallest diameter measurements (made from centerline curved MPRs): - Infrarenal aorta: 19 mm x 20 mm. There is mild calcification. - Right common iliac artery: 10 mm x 10 mm. There is no calcification. - Left common iliac artery: 10 mm x 12 mm. There is mild calcification. - There is mild tortuosity of the bilateral common iliac arteries. This is equal in distribution. - Right external iliac artery: 8 mm x 9 mm. There is no calcification. - Left external iliac artery: 8 mm x 8 mm. There is no calcification. - There is moderate tortuosity of the bilateral external iliac arteries. This is equal in distribution. - Right common femoral artery: 9 mm. There is no calcification. - Left common femoral artery: 9 mm. There is no calcification. - There is mild tortuosity of the bilateral femoral arteries. This is equal in distribution. Other findings: Chest: - Atherosclerosis in the ascending aorta: Minimal calcified atherosclerosis at the sinotubular junction. - Atherosclerosis in the descending aorta: Minimal calcified atherosclerosis at the isthmus. Moderate cardiomegaly. The cardiac apex is at the 6th intercostal space. Small pericardial effusion. Moderate burden of calcified coronary artery disease. The thoracic aorta is normal in caliber. Enlarged multinodular right thyroid lobe. No supraclavicular or axillary lymphadenopathy. No pathologically enlarged mediastinal or hilar lymph nodes. There are small bilateral pleural effusions but no pneumothorax. Mild septal line thickening in keeping with trace pulmonary edema. There is otherwise stable peripheral upper lobe predominant reticulation in keeping with a non-fibrotic interstitial lung abnormality. No pneumonic consolidation. 3 mm left apical pulmonary nodule (table position 7.2). 4 mm left lower lobe nodule (table position -162.8). These are unchanged compared to 11/02/2022. No suspicious pulmonary nodule. Abdomen/pelvis: Mildly nodular liver surface morphology. Gallbladder is absent. No bile duct dilatation. Normal noncontrast appearance of the pancreas and spleen. No adrenal mass or nodule. There is no hydronephrosis in either kidney. No renal calculi. Urinary bladder is within normal limits. Trace ascites. No pneumoperitoneum. There is mesenteric and retroperitoneal edema. The appendix is normal. Large and small bowel are normal in caliber without obstruction. Abdominal aorta is normal in caliber. Upper retroperitoneal lymph nodes at the upper limits of normal or likely reactive. No pathologically enlarged lymph nodes in the abdomen or pelvis. Diffuse body wall edema. No suspicious lytic or blastic lesion. IMPRESSION: 1. Location of vasculature posterior to sternum as described above. 2. Abdominal aortic, common iliac, external iliac, and femoral artery measurements in preparation for minimally invasive cannulation procedure as described above. 3. Cardiomegaly with findings of volume overload including small bilateral pleural effusions, mild pulmonary edema, trace ascites and mesenteric and body wall edema. 4. Stable mild peripheral reticulation in both lungs in keeping with a non-fibrotic interstitial lung abnormality. Electronically signed by: Dmitry Armas MD, PHD Blake Peña SWEET POTATO DISINTEGRATOR IMG CT PROCEDURES Final Re sult * (ABNORMAL) eGFR (04/08/2025 6:40 PM CDT) eGFR 53(L) >=60 mL/min/1. 73 m2 Comment: Interpretive Data Reference Interval Normal >/= 90 mL/min/1.73m2 Mildly decreased* 60 - 89 mL/min/1.73m2 Mildly to moderately decreased 45 - 59 mL/min/1.73m2 Moderately to severely decreased 30 - 44 mL/min/1.73m2 Severely decreased 15 - 29 mL/min/1.73m2 Kidney Failure < 15 mL/min/1.73m2 *Relative to young adult level Estimated glomerular filtration rate is determined by the 2020 CKD-EPI equation recommended by the National Kidney Foundation (A Unifying Approach to GFR Estimation: Recommendations of the NKF-ASK Task Force on Reassessing the Inclusion of Race in Diagnosing Kidney Disease, JASN 2020). The CKD-EPI equation should not be used for patients with unstable renal function and has not been validated in children and those over 70. Current interpretive data was last reviewed 2021. Blood 04/08/2025 6:40 PM CDT 04/08/2025 7:30 PM CDT Blake Ulises Casey SWEET POTATO DISINTEGRATOR LAB BLOOD ORDERABLES Final Result [facility] [place] [address] * (ABNORMAL) Differential, auto (04/08/2025 6:40 PM CDT) Neutrophil abs 7.32(H) 1.50 - 6.50 K/cumm Imm gran abs 0.04 0.00 - 0.10 K/cumm [facility] Lymphocyte abs 0.92 0.80 - 3.30 [facility] Monocyte abs 0.81(H) 0.20 - 0.80 K/cumm [facility] Eosinophil abs 0.20 0.00 - 0.50 K/cumm [facility] Basophil abs 0.04 0.00 - 0.10 K/cumm [facility] Neutrophil pct 78.5 % [facility] Comment: Interpretive Data Percent cell count reference ranges are not reported, since discordance with absolute values may lead to misinterpretation of CBC data. Current Interpretive Data was last revised on 2018. Imm gran pct 0.4 % [facility] Comment: Interpretive Data Percent cell count reference ranges are not reported, since discordance with absolute values may lead to misinterpretation of CBC data. Current Interpretive Data was last revised on 2018. Lymphocyte pct 9.9 % [facility] Comment: Interpretive Data Percent cell count reference ranges are not reported, since discordance with absolute values may lead to misinterpretation of CBC data. Current Interpretive Data was last revised on 2018. Monocyte pct 8.7 % [facility] Comment: Interpretive Data Percent cell count reference ranges are not reported, since discordance with absolute values may lead to misinterpretation of CBC data. Current Interpretive Data was last revised on 2018. Eosinophil pct 2.1 % [facility] Comment: Interpretive Data Percent cell count reference ranges are not reported, since discordance with absolute values may lead to misinterpretation of CBC data. Current Interpretive Data was last revised on 2018. Basophil pct 0.4 % [facility] Comment: Interpretive Data Percent cell count reference ranges are not reported, since discordance with absolute values may lead to misinterpretation of CBC data. Current Interpretive Data was last revised on 2018. Blood 04/08/2025 6:40 PM CDT 04/08/2025 7:33 PM CDT us Blake Peña SWEET POTATO DISINTEGRATOR LAB BLOOD ORDERABLES Final Result [facility] MAR[facility] [place] [address] * (ABNORMAL) Pro B-type natriuretic peptide (04/08/2025 6:40 PM CDT) NT-proBNP 7,899(H) <=300 pg/mL Comment: Interpretive Comments: A. Dyspnea in Acute Care Setting All Ages: < 300 pg/ml, acute heart failure unlikely. < 50 yrs: 300 - 450 pg/ml, further investigation warranted. > 450 pg/ml, acute heart failure likely. 50 - 74 yrs: 300 - 900 pg/ml, further investigation warranted. > 900 pg/ml, acute heart failure likely . > or = 75 yrs: 450 - 1800 pg/ml, further investigation warranted. > 1800 pg/ml, acute heart failure likely. B. Non-acute Setting < 75 yrs < 125 pg/ml, rules out heart failure. > or = 125 pg/ml, further investigation warranted. > or = 75 yrs < 450 pg/ml, rules out heart failure. > or = 450 pg/ml, further investigation warranted. - Knowledge of each individual patient's NT-proBNP range may be more useful than using similar cut-points for every patient. Please note that marked elevations in NT-proBNP levels may be observed in state other than Left Ventricular Congestive Failure, including: acute coronary syndromes, right heart strain/failure (including pulmonary embolism and cor pulmonale), critical illness, renal failure, as well as advanced age. - References: 1. Abelardo KOLB et.al. Eur Heart J. 2006:27:330-337. 2. Sujey GARNICA, Antonio CRUM. J. AM Monika Cardiol: Cardiovasc Imag. 2009;2: 216- 225. Interpretive Data Last Revised Date: 2018. Blood 04/08/2025 6:40 PM CDT 04/08/2025 7:33 PM CDT Blake Peña SWEET POTATO DISINTEGRATOR LAB BLOOD ORDERABLES Final Result Performing Organization Address City/[facility]/ZIP Co de Phone Number [facility] [place] [address] * (ABNORMAL) CBC with auto differential (04/08/2025 6:40 PM CDT) Pathologist [facility] WBC 9.33 3.80 - 9.90 K/cumm Hgb 14.5 13.0 - 17.5 g/dL [facility] Hct 46.4 38.9 - 50.3 % [facility] Plt 218 150 - 400 K/cumm [facility] MPV 11.8 9.1 - 12.[address] [facility] RBC 5.50 4.30 - 5.80 M/cumm [facility] MCV 84.4 81.3 - 96.[address] [facility] MCH 26.4(L) 27.1 - 33.[address] [facility] MCHC 31.3(L) 32.3 - 35.7 g/dL [facility] RDW CV 15.5(H) 11.1 - 14.9 % [facility] RDW SD 46.8 35.7 - 48.[address] [facility] NRBC abs 0.00 0.00 - 0.01 K/cumm [facility] Blood 04/08/2025 6:40 PM CDT 04/08/2025 7:33 PM CDT us Blake Peña SWEET POTATO DISINTEGRATOR LAB BLOOD ORDERABLES Final Result Performing Organization Address City/[facility]/ZIP Co de Phone Number [facility] [place] [address] * aPTT (04/08/2025 6:40 PM CDT) aPTT 34 28 - 38 sec Comment: Interpretive Data Heparin therapeutic range: 66.0 - 100.0 seconds. Range based on correlation with therapeutic heparin activity range of 0.3 - 0.7 Units/mL. Current interpretive data was last revised on 2023. Blood 04/08/2025 6:40 PM CDT 04/08/2025 7:31 PM CDT Blake Peña SWEET POTATO DISINTEGRATOR LAB BLOOD ORDERABLES Final Result Performing Organization Address [facility] Co de Phone Number DULCE MARIA [facility] [address] * (ABNORMAL) Protime-INR (04/08/2025 6:40 PM CDT) PT 13.4(H) 9.7 - 13.0 sec INR 1.24(H) 0.90 - 1.[address] [facility] Comment: Interpretive data Oral anticoagulant therapeutic ranges: Venous thromboembolism prophylaxis or treatment: 2.0-3.0 CARDIOLOGY Standard range: 2.0-3.0 High-intensity range: 2.5-3.5 Refer to indication-specific guidelines for appropriate target ranges for prosthetic heart valve replacement. Current interpretive data was last revised on 2019. Blood 04/08/2025 6:40 PM CDT 04/08/2025 7:31 PM CDT us Blake Peña NP LAB BLOOD ORDERABLES Final Result Performing Organization Address [facility] Co de Phone Number [facility] [place] [address] * Magnesium (04/08/2025 6:40 PM CDT) Magnesium 2.3 1.4 - 2.5 mg/dL Blood 04/08/2025 6:40 PM CDT 04/08/2025 7:33 PM CDT us Blake Peña SWEET POTATO DISINTEGRATOR LAB BLOOD ORDERABLES Final Result Performing Organization Address [facility] [place] [address] * Digoxin level (04/08/2025 6:40 PM CDT) Pathologist [facility] Digoxin 0.5 0.5 - 1.2 ng/mL Comment: Interpretive data The therapeutic range for digoxin varies by indication: Heart failure: 0.5 to 0.8 ng/mL Atrial fibrillation: less than 1.2 ng/mL Toxicity: >2.4. Normal or low digoxin does not rule out toxicity. Current interpretive data was last revised on 2024. Blood 04/08/2025 6:40 PM CDT 04/08/2025 7:33 PM CDT us Elinor Barone SWEET POTATO DISINTEGRATOR LAB BLOOD ORDERABLES Final Result Performing Organization Address [facility] [place] [address] * (ABNORMAL) Comprehensive metabolic panel (04/08/2025 6:40 PM CDT) Sodium 138 135 - 145 mmol/L Potassium, pl 4.0 3.3 - 4.9 mmol/L [facility] Chloride 99 97 - 110 mmol/L [facility] CO2 28 22 - 32 mmol/L [facility] Anion gap 11 2 - 15 mmol/L [facility] BUN 25 6 - 25 mg/dL [facility] Creatinine 1.49(H) 0.80 - 1.30 mg/dL [facility] Glucose 109 70 - 199 mg/dL [facility] Comment: Interpretive Data Fasting glucose >/= 126 mg/dl is diagnostic for diabetes. Fasting is defined as no caloric intake for at least 8 hours. Fasting glucose between 100 mg/dl to 125 mg/dl is diagnostic of prediabetes. In a patient with classic symptoms of hyperglycemia or hyperglycemic crisis, a random glucose >/= 200 mg/dl is diagnostic for diabetes. In the absence of unequivocal hyperglycemia, results should be confirmed by repeat testing. The classification and Diagnosis of Diabetes Diabetes Care 2021; 46: S19-S40. Current interpretive data was last revised 2022. Calcium 9.9 8.5 - 10.3 mg/dL [facility] Bilirubin, total 0.8 0.1 - 1.2 mg/dL [facility] Protein, pl 6.3(L) 6.5 - 8.5 g/dL [facility] Albumin 3.9 3.5 - 5.0 g/dL [facility] Alk phos 214(H) 40 - 130 Units/L [facility] ALT 26 7 - 55 Units/L [facility] AST 24 10 - 50 Units/L [facility] Blood 04/08/2025 6:40 PM CDT 04/08/2025 7:30 PM CDT Blake Peña SWEET POTATO DISINTEGRATOR LAB BLOOD ORDERABLES Final Result [facility] [place] [address] * RIGHT HEART CATH (04/08/2025 9:27 AM CDT) Anatomical Region Laterality Modality X-Ray Angiograph y Narrative 04/08/2025 10:10 AM CDT [facility] CATHETERIZATION LAB REPORT PROCEDURE: Right heart catheterization CLINICAL HISTORY: Gosia Zuniga is a 59 y.o. 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 He is referred for right heart catheterization fo hemodynamic assessment and advanced therapies evaluation. PERFORMING: Jessica Snow MD PhD FELLOW: MD Zack PROCEDURE: Consent was obtained The patient was transported to the catheterization bay, prepped, and draped in the usual sterile fashion. I provided direct [id number] monitoring of conscious sedation which was administered by an independent trained nurse using Fentanyl 25 mcg and Midazolam 1 mg. Sedation time 17 min. Local anesthesia with 1% lidocaine was used. Venous access was obtained in theRight Internal Jugular vein using modified Seldinger technique and micropuncture approach. A 7 Indonesian sheath was secured into place. Right heart catheterization was performed with a 7 Indonesian TD [place] catheter. The catheter was advanced sequentially to the right atrium, right ventricle, pulmonary artery, and to the pulmonary capillary wedge position with pressures measured at each station and saturations drawn from the pulmonary artery for the estimation of cardiac output. Cardiac output by thermodilution was obtained. Hemostasis - At the conclusion of the case the sheath was removed with hemostasis achieved by manual compression. Complications - There were no complications. RESULTS: Hemodynamics Noninvasive blood pressure (99/68/78) mmHg Right Heart Pressures (End-expiratory) Right atrial pressure 13 mmHg mean. Positive Kussmaul sign with rapid Y-descent Right ventricular pressure 35/12 mmHg. Pulmonary artery pressure 36/18/24 mmHg. Pulmonary capillary wedge pressure 13 mmHg mean. Derived Pressures Transpulmonary gradient 11 mmHg Diastolic pressure gradient 5 mmHg Transsystemic Gradient 65 mmHg Outputs and Resistances BSA 2.05 kg/m2 Hemoglobin 14 g/dl Heart Rate 93 beats/min Pulmonary Arterial Saturation 61% Systemic Arterial Saturation 96% AVO2 Difference 6.0 ml/dl Cardiac Output 125 x BSA Method (estimated VO2 256.25 ml/min) = 4.3 L/min, 2.1 L/min/m2. Thermodilution = 3.6 L/min, 1.8 L/min/m2 Vascular Resistances Pulmonary Vascular Resistance 2.6 Wood Units Systemic Vascular Resistance 15.3 Wood Units Derived Calculations Stroke Volume (CO/HR x 1000) = 46 mL Stroke Volume Index = SV/BSA = 22 mL/m2 Right Ventricular Stroke Work Index (SVI x (MPAP - CVP) = 246 ml/m2/mmHg Left Ventricular Stroke Work Index (SVI x (MAP - PCWP) = 1462 ml/m2/mmHg Cardiac Power Output (MAP x CO/451) = 0.8 Pulmonary artery pulsatility index ((PASP-PADP)/RAP) = 1.4 RA:PCWP ratio = 1.0 PA compliance (SV / (PASP-PADP)) = 2.5 PA elastance (PASP/SV) = 0.8 Diagnostic Impressions: Normal left heart filling pressures. Elevated right heart filling pressures. Mild pulmonary hypertension. Low cardiac output at rest. Therapeutic Recommendations: The results of the right heart catheterization were discussed with the referring physician. The patient will be admitted for advanced therapies evaluation. Jessica Snow MD, PhD Instructor in Medicine Advanced Heart Failure and Cardiac Transplantation Yaakov Lawrence MD PhD CV CARDIAC CATH MS OCEDURES Final Result * (ABNORMAL) POCT oxyhemoglobin (04/08/2025 9:21 AM CDT) [employer] Oxyhemoglobin 61.9(L) >=65.0 % [employer] Hemoglobin 13.7 13.0 - 17.5 g/dL [facility] G[employer]E MANAGER O2 content 11.8(L) 15.0 - 22.0 Vol % [facility] Anatomic Site aPOC [facility]m [facility]tery [facility] Blood 04/08/2025 9:21 AM CDT 04/08/2025 9:21 AM CDT Yaakov Lawrence MD PhD LAB POCT ORDERABLE S - DEVICE Final Result Performing Organization Address [facility] Co de Phone Number [facility] [place] [address] * (ABNORMAL) POCT oxyhemoglobin (04/08/2025 9:20 AM CDT) G[employer]E MANAGER Oxyhemoglobin 61.7(L) >=65.0 % [employer] Hemoglobin 14.1 13.0 - 17.5 g/dL [facility] GAME PRESERVE MANAGER O2 content 12.1(L) 15.0 - 22.0 Vol % [facility] Anatomic Site aPOC Pulm Artery [facility] Blood 04/08/2025 9:20 AM CDT 04/08/2025 9:20 AM CDT Yaakov Lawrence MD PhD LAB POCT ORDERABLE S - DEVICE Final Result Performing Organization Address City/[facility]/ZIP Co de Phone Number [facility] [place] [address] * ECG 12 lead (04/08/2025 8:19 AM CDT) Pathologist [facility] Ventricular Rate EKG/Min 95 BPM [facility] Atrial Rate 95 BPM [facility] MS-Interval (MSEC) 222 ms [facility] QRS-Interval (MSEC) 100 ms [facility] QT-Interval (MSEC) 374 ms [facility] QTc 469 ms [facility] P Peacham 90 degrees [facility] R Peacham -89 degrees [facility] T Peacham 81 degrees [facility] Diagnosis Sinus rhythm with 1st degree A-V block Left axis deviation Low voltage QRS Incomplete right bundle branch block Inferior infarct , age undetermined Cannot rule out Anteroseptal infarct , age undetermined Abnormal ECG When compared with ECG of 28-NOV-2023 03:00, PREVIOUS ECG IS PRESENT Confirmed by MERARY ZEPEDA M.D ([id number]) on 04/08/2025 11:04:08 AM [facility] 04/08/2025 8:19 AM CDT 04/08/2025 11:04 AM CDT us Jessica Snow MD PhD ECG ORDERABLES Final Result [facility] * (ABNORMAL) eGFR (04/02/2025 9:42 AM CDT) Pathologist [facility] eGFR 53(L) >=60 mL/min/1. 73 m2 Comment: Interpretive Data Reference Interval Normal >/= 90 mL/min/1.73m2 Mildly decreased* 60 - 89 mL/min/1.73m2 Mildly to moderately decreased 45 - 59 mL/min/1.73m2 Moderately to severely decreased 30 - 44 mL/min/1.73m2 Severely decreased 15 - 29 mL/min/1.73m2 Kidney Failure < 15 mL/min/1.73m2 *Relative to young adult level Estimated glomerular filtration rate is determined by the 2020 CKD-EPI equation recommended by the National Kidney Foundation (A Unifying Approach to GFR Estimation: Recommendations of the NKF-ASK Task Force on Reassessing the Inclusion of Race in Diagnosing Kidney Disease, JASN 2020). The CKD-EPI equation should not be used for patients with unstable renal function and has not been validated in children and those over 70. Current interpretive data was last reviewed 2021. Blood 04/02/2025 9:42 AM CDT 04/02/2025 10:02 AM CDT Justin Flowers MD LAB BLOOD ORDER LINH Final Result [facility] [place] [address] * (ABNORMAL) Differential, auto (04/02/2025 9:42 AM CDT) Neutrophil abs 5.50 1.50 - 6.50 K/cumm Comment:Testing performed by : [facility], [address] [place], [place] [phone] Lymphocyte abs 0.71(L) 0.80 - 3.30 K/cumm [facility] Comment:Testing performed by : [facility], [address] [place], [place] [phone] Monocyte abs 0.62 0.20 - 0.80 K/cumm [facility] Comment:Testing performed by : [facility], [address] [place] [phone] Eosinophil abs 0.05 0.00 - 0.50 K/cumm [facility] Comment:Testing performed by : [facility], [address] [place] [phone] Basophil abs 0.04 0.00 - 0.10 K/cumm [facility] Comment:Testing performed by : [facility], [address] [place] [phone] Neutrophil pct 79.5 % [facility] Comment: Interpretive Data Percent cell count reference ranges are not reported, since discordance with absolute values may lead to misinterpretation of CBC data. Current Interpretive Data was last revised on 2018. Testing performed by: [facility], [address] [place] [phone] Lymphocyte pct 10.3 % [facility] Comment: Interpretive Data Percent cell count reference ranges are not reported, since discordance with absolute values may lead to misinterpretation of CBC data. Current Interpretive Data was last revised on 2018. Testing performed by: [facility], [address] [place] [phone] Monocyte pct 8.9 % D[facility] MARIA ARANDA Comment: Interpretive Data Percent cell count reference ranges are not reported, since discordance with absolute values may lead to misinterpretation of CBC data. Current Interpretive Data was last revised on 2018. Testing performed by: [facility], [address] [place] [phone] Eosinophil pct 0.7 % DULCE MARIA ARANDA Comment: Interpretive Data Percent cell count reference ranges are not reported, since discordance with absolute values may lead to misinterpretation of CBC data. Current Interpretive Data was last revised on 2018. Testing performed by: [facility], [address] [place], [place] [phone] Basophil pct 0.6 % DULCE MARIA ARANDA Comment: Interpretive Data Percent cell count reference ranges are not reported, since discordance with absolute values may lead to misinterpretation of CBC data. Current Interpretive Data was last revised on 2018. Testing performed by: [facility], [address] [place] [phone] Blood 04/02/2025 9:42 AM CDT 04/02/2025 9:56 AM CDT Justin Flowers MD LAB BLOOD ORDER LINH Final Result [facility] Department of Laboratories [place], [place] [id number] * Immunoglobulin free light chains (04/02/2025 9:42 AM CDT) [employer]is/Lambda ratio [facility] 0.71 0.26 - 1.65 Comment: Interpretive Data The Binding Site FreeLite assay procedure was used. Results from different manufacturers or methods may not be comparable. Serial testing should be performed using the same methods and instrumentation. Current Interpretive Data was last revised on 2024. Solis free light chain [facility] 0.45 0.33 - 1.94 mg/dL [facility] Comment: Interpretive Data The Binding Site FreeLite assay procedure was used. Results from different manufacturers or methods may not be comparable. Serial testing should be performed using the same methods and instrumentation. Current Interpretive Data was last revised on 2024. Lambda free light chain [facility] 0.63 0.57 - 2.63 mg/dL [facility] Comment: Interpretive Data The Binding Site FreeLite assay procedure was used. Results from different manufacturers or methods may not be comparable. Serial testing should be performed using the same methods and instrumentation. Current Interpretive Data was last revised on 2024. Blood 04/02/2025 9:42 AM CDT 04/02/2025 11:33 AM CDT Justin Flowers MD LAB BLOOD ORDER LINH Final Result [facility] [place] [address] * (ABNORMAL) Pro B-type natriuretic peptide (04/02/2025 9:42 AM CDT) NT-proBNP 6,814(H) <=300 pg/mL Comment: Interpretive Comments: A. Dyspnea in Acute Care Setting All Ages: < 300 pg/ml, acute heart failure unlikely. < 50 yrs: 300 - 450 pg/ml, further investigation warranted. > 450 pg/ml, acute heart failure likely. 50 - 74 yrs: 300 - 900 pg/ml, further investigation warranted. > 900 pg/ml, acute heart failure likely . > or = 75 yrs: 450 - 1800 pg/ml, further investigation warranted. > 1800 pg/ml, acute heart failure likely. B. Non-acute Setting < 75 yrs < 125 pg/ml, rules out heart failure. > or = 125 pg/ml, further investigation warranted. > or = 75 yrs < 450 pg/ml, rules out heart failure. > or = 450 pg/ml, further investigation warranted. - Knowledge of each individual patient's NT-proBNP range may be more useful than using similar cut-points for every patient. Please note that marked elevations in NT-proBNP levels may be observed in state other than Left Ventricular Congestive Failure, including: acute coronary syndromes, right heart strain/failure (including pulmonary embolism and cor pulmonale), critical illness, renal failure, as well as advanced age. - References: 1. Abelardo KOLB et.al. Eur Heart J. 2006:27:330-337. 2. Sujey GARNICA, Antonio CRUM. J. AM Monika Cardiol: Cardiovasc Imag. 2009;2: 216- 225. Interpretive Data Last Revised Date: 2018. Blood 04/02/2025 9:42 AM CDT 04/02/2025 10:54 AM CDT Justin Flowers MD LAB BLOOD ORDER LINH Final Result DUL[facility] MARIA ARANDA [facility] [place] [address] * (ABNORMAL) CBC with auto differential (04/02/2025 9:42 AM CDT) WBC 6.92 3.80 - 9.90 K/cumm Comment:Testing performed by : [facility], [address] [place] [phone] Hgb 14.0 13.0 - 17.5 g/dL DUL[facility] MAR[facility] ARANDA Comment:Testing performed by : [facility], [address] [place] [phone] Hct 43.2 38.9 - 50.3 % DULCE MARIA ARANDA Comment:Testing performed by : [facility], [address] [place] [phone] Plt 223 150 - 400 K/cumm DULCE MARIA ARANDA Comment:Testing performed by : [facility], [address] [place] [phone] MPV 8.9 6.8 - 10.4 fL DUL[facility] MARIA ARANDA Comment:Testing performed by : [facility], [address] [place] [address] RBC 5.22 4.30 - 5.80 M/cumm DULCE MARIA [facility] Comment:Testing performed by : [facility], [address] [place] [address] MCV 82.8 81.3 - 96.4 fL CERTRACEY [facility] Comment:Testing performed by : [facility], [address] [place] [address] MCH 26.8(L) 27.1 - 33.3 pg [facility] Comment:Testing performed by : [facility], [address] [place] [address] MCHC 32.4 32.3 - 35.7 g/dL DULCE MARIA [facility] Comment:Testing performed by : [facility], [address] [place] [address] RDW CV 15.7(H) 11.1 - 14.9 % [facility] Comment:Testing performed by : [facility], [address] [place] [address] NRBC abs 0.00 0.00 - 0.01 K/cumm [facility] Comment:Testing performed by : [facility], [address] [place] [address] Blood 04/02/2025 9:42 AM CDT 04/02/2025 9:56 AM CDT Justin Flowers MD LAB BLOOD ORDER LINH Final Result [facility] [place] [address] * aPTT (04/02/2025 9:42 AM CDT) aPTT 38 28 - 38 sec Comment: Interpretive Data Heparin therapeutic range: 66.0 - 100.0 seconds. Range based on correlation with therapeutic heparin activity range of 0.3 - 0.7 Units/mL. Current interpretive data was last revised on 2023. Blood 04/02/2025 9:42 AM CDT 04/02/2025 10:54 AM CDT Justin Flowers MD LAB BLOOD ORDER LINH Final Result Performing Organization Address [facility] Co de Phone Number [facility] [place] [address] * (ABNORMAL) Protime-INR (04/02/2025 9:42 AM CDT) PT 19.8(H) 9.7 - 13.0 sec INR 1.81(H) 0.90 - 1.[address] [facility] Comment: Interpretive data Oral anticoagulant therapeutic ranges: Venous thromboembolism prophylaxis or treatment: 2.0-3.0 CARDIOLOGY Standard range: 2.0-3.0 High-intensity range: 2.5-3.5 Refer to indication-specific guidelines for appropriate target ranges for prosthetic heart valve replacement. Current interpretive data was last revised on 2019. Blood 04/02/2025 9:42 AM CDT 04/02/2025 10:54 AM CDT Justin Flowers MD LAB BLOOD ORDER LINH Final Result Performing Organization Address [facility] de Phone Number [facility] [place] [address] * Uric acid (04/02/2025 9:42 AM CDT) Uric acid 7.5 3.0 - 8.0 mg/dL Blood 04/02/2025 9:42 AM CDT 04/02/2025 10:02 AM CDT Justin Flowers MD LAB BLOOD ORDER LINH Final Result Performing Organization Address City/[facility] de Phone Number [facility] [place] [address] * (ABNORMAL) Protein electrophoresis with reflex, serum with interpretation (04/02/2025 9:42 AM CDT) Protein, sr 5.9(L) 6.2 - 8.2 g/dL Albumin 3.8 3.2 - 5.0 g/dL [facility] Alpha-1 globulin 0.4 0.2 - 0.4 g/dL [facility] Alpha-2 globulin 0.8 0.5 - 1.0 g/dL [facility] Beta-1 globulin 0.4 0.3 - 0.6 g/dL [facility] Beta-2 globulin 0.2 0.2 - 0.6 g/dL [facility] Gamma globulin 0.3(L) 0.5 - 1.7 g/dL [facility] Rstr Pk Gamma 0.1(H) 0.0 - 0.0 g/dL [facility] SPEP interp Please see comment [facility] Comment: Abnormal restricted peak in gamma region Decreased gamma globulins Electrophoretic pattern appears similar to previous sample 02-07-25 Reviewed and signed by Merary Quintana MD, PhD 04/03/2025 Blood 04/02/2025 9:42 AM CDT 04/02/2025 11:33 AM CDT Justin Flowers MD LAB BLOOD ORDER LINH Final Result DULCE MARIA [facility] [place] [address] * Protein, total (04/02/2025 9:42 AM CDT) Pathologist [facility] Protein, pl See Comment 6.5 - 8.5 g/dL Comment:Credited, duplicate test. Blood 04/02/2025 9:42 AM CDT 04/02/2025 10:02 AM CDT Justin Flowers MD LAB BLOOD ORDER LINH Final Result Performing Organization Address City/[facility]/ZIP Co de Phone Number [facility] [place] [address] * Lactate dehydrogenase (LD) (04/02/2025 9:42 AM CDT) Lactate dehydrogenase (LDH) 183 100 - 250 Units/L Blood 04/02/2025 9:42 AM CDT 04/02/2025 10:02 AM CDT Justin Flowers MD LAB BLOOD ORDER LINH Final Result Performing Organization Address [facility] [place] [address] * (ABNORMAL) IgA (04/02/2025 9:42 AM CDT) Immunoglobulin A <50(L) 70 - 400 mg/dL Blood 04/02/2025 9:42 AM CDT 04/02/2025 10:54 AM CDT Justin Flowers MD LAB BLOOD ORDER LINH Final Result Performing Organization Address [facility] Co de Phone Number [facility] [place] [address] * (ABNORMAL) IgM (04/02/2025 9:42 AM CDT) Immunoglobulin M <25(L) 40 - 230 mg/dL Blood 04/02/2025 9:42 AM CDT 04/02/2025 10:54 AM CDT Justin Flowers MD LAB BLOOD ORDER LINH Final Result Performing Organization Address City/[facility]/ZIP Co de Phone Number [facility] [place] [address] * (ABNORMAL) IgG (04/02/2025 9:42 AM CDT) [facility] Immunoglobulin G 318(L) 700 - 1,600 mg/dL Blood 04/02/2025 9:42 AM CDT 04/02/2025 10:54 AM CDT Justin Flowers MD LAB BLOOD ORDER LINH Final Result Performing Organization Address [facility] de Phone Number [facility] [place] [address] * (ABNORMAL) Beta 2 microglobulin, serum (04/02/2025 9:42 AM CDT) [facility] Beta 2 Microglobulin, Serum 4.00(H) 1.00 - 2.50 mg/L Comment: Interpretive Data The Lucas Beta-2 microglobulin assay procedure was used. Results from different manufacturers or methods may not be comparable. Serial testing should be performed using the same method. Blood 04/02/2025 9:42 AM CDT 04/02/2025 10:54 AM CDT Justin Flowers MD LAB BLOOD ORDER LINH Final Result Performing Organization Address [facility] de Phone Number [facility] [place] [address] * (ABNORMAL) Comprehensive metabolic panel (04/02/2025 9:42 AM CDT) [facility] Sodium 138 135 - 145 mmol/L Potassium, pl 4.4 3.3 - 4.9 mmol/L [facility] Chloride 99 97 - 110 mmol/L [facility] CO2 30 22 - 32 mmol/L [facility] Anion gap 9 2 - 15 mmol/L [facility] BUN 25 6 - 25 mg/dL [facility] Creatinine 1.50(H) 0.80 - 1.30 mg/dL [facility] Glucose 150 70 - 199 mg/dL [facility] Comment: Interpretive Data Fasting glucose >/= 126 mg/dl is diagnostic for diabetes. Fasting is defined as no caloric intake for at least 8 hours. Fasting glucose between 100 mg/dl to 125 mg/dl is diagnostic of prediabetes. In a patient with classic symptoms of hyperglycemia or hyperglycemic crisis, a random glucose >/= 200 mg/dl is diagnostic for diabetes. In the absence of unequivocal hyperglycemia, results should be confirmed by repeat testing. The classification and Diagnosis of Diabetes Diabetes Care 202; 46: S19-S40. Current interpretive data was last revised 2022. Calcium 9.8 8.5 - 10.3 mg/dL [facility] Bilirubin, total 1.0 0.1 - 1.2 mg/dL [facility] Protein, pl 6.4(L) 6.5 - 8.5 g/dL [facility] Albumin 4.0 3.5 - 5.0 g/dL [facility] Alk phos 223(H) 40 - 130 Units/L [facility] ALT 21 7 - 55 Units/L [facility] AST 25 10 - 50 Units/L [facility] Blood 04/02/2025 9:42 AM CDT 04/02/2025 10:02 AM CDT Justin Flowers MD LAB BLOOD ORDER LINH Final Result 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 Specials protocols are implemented when working with a patient testing positive for C. Auris. 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 05/07/2025 05/07/2025 Insurance [place] [address] [facility] Member Subscriber Plan / Payer (Ef fective 2023-Present) Name:Gosia Zuniga Relation to Subscriber:Self Name:Gosia Zuniga Payer ID:[id number] (NAIC) Group ID:[id number] Type:[facility] Address: [address] [place] [id number] [facility] Address: [facility] [id number] [place] [address] [facility] Member Subscriber Plan / Payer ( fective 2023-Present) Name:AsuncionGosia William Relation to Subscriber:Self Name:AsuncionGosia William Payer ID:[id number] (NAIC) Group ID:[id number] Type:[facility] Address: [facility] [id number] [facility] Member Subscriber Plan / Payer (Ef fective 2023-Present) Name:Gosia Zuniga Relation to Subscriber:Self Name:Gosia Zuniga Payer ID:[id number] (NAIC) Group ID:[id number] Type: [employer] Address: [address] [place] [id number] [facility] Advance Directives For more information, please contact: [phone] * Full Code (Latest Code Status on File) Date Activated Date Inactivated Comments 05/21/2025 6:37 AM 06/11/2025 8:58 PM * Full Code Date Activated Date Inactivated Comments 05/20/2025 1:32 AM 05/21/2025 6:37 AM * Full Code Date Activated Date Inactivated Comments 04/08/2025 9:38 AM 05/20/2025 1:32 AM * Full Code Date Activated Date Inactivated Comments 11/27/2023 5:46 PM 11/30/2023 5:34 PM Care Teams Leakage Tester Relationship Specialty Start Date End Date Anuel Vargas DO PCP - General Internal Medicine 10/19/22 Justin Flowers MD [address] [facility] [employer] [place] [address] Consulting Physician Medical Oncology 10/06/23 Erlin Chong MD [address] [facility] [employer], [address] [place] [address] Referring Physician Cardiology 10/06/23 Alexandra Powell, RN [address] [facility] [address] [place] [address] Hand Shaper Transplant 05/21/25
[2025-06-20 11:21] LABS: Hematocrit 24.3 % (42.0-52.0); Hemoglobin 7.6 g/dL (14.0-18.0); Immature Granulocyte Percent A 0.5 % (0-0.5); Lymphocytes Absolute Auto 0.47 K/mm3 (0.9-3.2); Mean Corpuscular HGB Conc 31.3 g/dl (32-36); Mean Corpuscular Hemoglobin 26.6 pg (26-34); Mean Corpuscular Volume 85.0 fl (80-100); Nucleated Red Blood Cells Absolute Auto 0.000 K/mm3 (0.0-0.012); Nucleated Red Blood Cells Perc 0.0 % (0.0-0.2); Platelet Count Result 404 k/mm3 (150-375); Red Blood Count 2.86 M/mm3 (4.6-6.20); White Blood Count 9.5 K/mm3 (4.5-10.0)
[2025-06-20 11:43] LABS: Alanine Aminotransferase 22 U/L (6-50); Albumin Level 3.5 g/dL (3.5-5.1); Alkaline Phosphatase 144 U/L (38-126); Aspartate Amino Transferase 24 U/L (17-59); Bilirubin,Total 0.5 mg/dL (0.2-1.3); Blood Urea Nitrogen 75 mg/dL (9-20); Calcium 9.2 mg/dL (8.4-10.2); Carbon Dioxide 26 mmol/L (22-30); Estimated Glomerular Filt Rate 28; Glucose 111 mg/dL (65-110); Potassium 3.7 mmol/L (3.4-5.0); Sodium 135 mmol/L (137-145); Total Protein 5.8 g/dL (6.3-8.2)
[2025-06-20 11:51] LABS: Anion Gap 10 mmol/L (4-12); Chloride 99 mmol/L (98-107)
[2025-06-20 12:03] LABS: Anisocytosis 1+; Schistocytes Rare
[2025-06-20 12:04] LABS: Ovalocytes 1+
[2025-06-23 10:07] LABS: Tacrolimus (FK506), Blood 13.7 ng/mL (5.0-20.0)
== END 2025-06-20 10:05 | disposition home or self-care (01) ==
DX: Z48.21 Encounter for aftercare following heart transplant (principal)
CPT/HCPCS: 36415; 80053; 80197; 85025; 87522

== ENCOUNTER 2025-06-24 10:52 | Outpatient (NON) | payer OTHER, SELFPAY ==
--- OUTSIDE RECORDS SUMMARY | 2025-06-24 11:48 | XMS_ITS | Encounter Summary ---
Author Name [facility] Organization [facility] Address [address] [place] [address] Care Team Providers Care Twisting Frame Changer Name Role Phone OSWALDOKAROLINAE Primary Care Provider Unavailnilsa e Insurance Providers: All historical and current Section Date Range: From patient's date of to the date document was created. This section includes the names of all active insurance providers for the patient. Insurance Provider Type of Coverage Plan Name Start of Policy Coverage End of Policy Coverage Group Number Member ID Insurance Provider's Telephone Number Policy Kennedy's Name Patient's Relationship to Policy Kennedy [facility] 2024 [facility] Nov 21, 2024 [facility] [id number] Elzbieta ZUNIGA PATIENT Selected Encounter This section includes the information on record at ID for the Encounter. Date/Time Encounter Type Encounter Description Reason Provider Source March 27, 2025 08:30 AM OFFICE O/P EST HI 40 MIN CARDIOLOGY ICD-10-CM E85.81 Light chain (AL) ISAIAH Joy Encounter Template Text not used by VA Assessments - Encounter Diagnoses This section includes the primary and secondary diagnoses documented for the Encounter. Date/Time Primary/Secondary Diagnosis Diagnosis Name Provider Source March 27, 2025 01:11 PM PRIMARY Light chain (AL) amyloidosis ISAIAH VERGARA [facility] March 27, 2025 01:11 PM SECONDARY Chronic combined systolic and diastolic hrt fail ISAIAH VERGARA [facility] March 27, 2025 01:11 PM SECONDARY Contact with and exposure to other hazardous substances ISAIAH VERGARA [facility] March 27, 2025 01:11 PM SECONDARY Essential (primary) hypertension ISAIAH VERGARA [facility] Plan of Treatment: Future Appointments (+ 6 months) and Future Tests (+/- 45 days) The Plan of Treatment section includes future care activities for the patient [facility] This section includes future appointments and future orders which are active, pending or scheduled. Future Appointments This section includes appointments that were scheduled to occur 6 months from the date of the Encounter, up to a maximum of 20 appointments. The data comes from all [facility] facilities. Appointment Date/Time Appointment Type Appointme nt Facility Name Jul 24, 2025 09:00 AM AMBULATORY - MEDICINE [facility] Aug 14, 2025 02:40 PM AMBULATORY - NONE [facility] Active, Pending, and Scheduled Orders This section includes a listing of several types of active, pending, and scheduled orders, including clinic medications orders, diagnostic test orders, procedure orders and consult orders; where the start date of the order is 45 days before the date of the Encounter or 45 days after the date of theEncounter. The data comes from all [facility]. Test Date/Time Test Type Test Details Facility Name Feb 28, 2025 12:00 AM Laboratory - Chemi stry Order BASIC METABOLIC PANEL GREEN LI/HEP BLD/PLAS PLASMA SP [facility] March 29, 2025 03:45 PM Consult Order COMMUNITY CARE-TRANSPLANT EVALUATION ST[facility] Cons Machine Shop Instructor's Choice [facility] Lab Results: +/- 30 days of the encounter This section includes the Chemistry and Hematology Lab Results on record with ID for the patient. Radiology Reports and Pathology Reports are provided separately, in subsequent sections. Lab Results This section contains the Chemistry/Hematology Results that were resulted 30 days before or 30 daysafter the date of the Encounter. Date/Time Source Result Type Result - Unit Interpretation Reference Range Specimen Type Comment Feb 26, 2025 06:45 AM [facility] GLUCOSE,BLOOD-poct (STL) BLOOD Specimen Type: BLOOD Comment: Test Performed by: [id number] Meter #: [id number] Ordering Provider: ADAMA CHACON Report Released Date/Time: Feb 26, 2025 06:50 AM Reporting Lab: [facility] [address] [facility] [id number] Performing Lab: [facility] [address] [address] GLUCOSE,BLOOD-poct (STL) 110 mg/dL H 72-99 Vital Signs: All taken on the encounter date This section contains inpatient and outpatient Vital Signs collected on the date of the Encounter. Date/Time Temperature Pulse Blood Pressure Respiratory Rate SP02 Pain Height Weight Body Mass Index Source March 27, 2025 08:15 AM 96.9 99 108/74 18 99 0 179.6 24 [facility] Social History: Smoking Status (Most current) and Tobacco Use (All prior to encounter date) This section includes the most current, and the historical, smoking and tobacco- related health factors from the ID facility where the Encounter took place. Current Smoking Status This section includes the most current smoking, or tobacco-related health factor, from the ID facility where the Encounter took place. Date/Time Current Smoking Status Comment Khurram ity Jan 17, 2025 09:00 AM ID-TOBACCO NEVER U SED CIGARETTES [facility] Tobacco Use History This section includes a history of the smoking, or tobacco-related health factors, that were collected on or before the date of the Encounter. The data comes from the ID facility where the Encounter took place. Date/Time Smoking Status/Tobacco Use Comment F acility Jan 17, 2025 09:00 AM ID-TOBACCO NEVER U SED OTHER TYPE [facility] Feb 10, 2024 06:16 PM ORYX ADMIT TOBACCO SCREEN NO [facility] Advance Directives: All historical and current Section Date Range: From patient's date of to the date document was created. This section includes ALL of a patient's completed or amended VA Advance and Rescinded Directives. The entries below indicate that a directive exists for the patient, but an actual copy is not included with this document. The data comes from all ID facilities. Date Advance Directives Provider Source Feb 16, 2024 ADVANCE DIRECTIVE GINA BRIGHT [facility] Radiology Reports: +/- 30 days of the encounter Radiology Reports For cases when an order for radiology services may have been completed prior to the date of the Encounter, the report list includes the Radiology Reports that were completed up to 30 days before dateof the Encounter. For cases when an order for radiology services may have been completed after the date of the Encounter, the report list also includes the Radiology Reports that were completed up to30 days after date of the Encounter. The data comes from all ID treatment facilities. Date/Time Radiology Report Provider Source Mar 12, 2025 02:[address] ABDOMEN W/CONT & 3D: GOSIA ZNUIGA [id number] -[id number] M Exm Date: MAR 12, 2025@14:23 Req Phys: HENNY MARLEY Loc: [facility]-CARDIO E-CONSULT (Req'g Loc Img Loc: [facility]-CT IMAGING [facility] Service: [address] [address] (Case [id number] COMPLETE) CT ABDOMEN W/O CONT (CT Detailed) CPT:18350 Reason for Study: c/f metastasis, CT adrenal gland protocol Clinical History: Responsible Attending: Henny Marley PA-C Attending Contact Number: [id number] Resident Contact Number: CT adrenal gland protocol with and without contrast Allergies listed in CPRS chart: Patient has answered NKA Creatinine: CREATININE 1.36 H mg/dL 02/12/2025 08:24 /eGFR: STL EGFR (within one year). CREATININE 1.36 mg/dL H (02/12/25 08:24) Wt: 180.8 lb [82.01 kg] (01/17/2025 09:01) History of: Renal failure, chronic or acute renal disease: NO Report Status: Verified Date Reported: MAR 12, 2025 Date Verified: MAR 12, 2025 Assistant Chief Engineer E-Sig:/ES/Zoe Craven MD Report: CASE #: [id number] DATE:03/12/2025 3:02 PM CLINICAL HISTORY:c/f metastasis, CT adrenal gland protocol COMPARISON: 07/27/2022, 02/12/2025, 02/26/2025 PROCEDURES: CT ABDOMEN W/O CONT FINDINGS: Enlarged heart with mild interstitial pulmonary edema. Small pleural effusions noted bilaterally. Previous cholecystectomy. No unusual hepatic lesions on this noncontrast examination. No evidence for pneumobilia on today's study. No pancreatic ductal dilatation or acute peripancreatic inflammation. Spleen unremarkable. No obstructive uropathy. The left adrenal gland has attenuation of 5.2 HU on this noncontrast examination. The right adrenal gland has attenuation of 7.0 on this noncontrast examination. Low-attenuation of the adrenal lesions is consistent with bilateral adrenal adenomas. Retroperitoneal and mesenteric lymph nodes are at the upper limits of normal size and number and there is mesenteric fat stranding. Degenerative changes of the spine. No fracture. Impression: Low attenuation of the adrenal glands consistent with bilateral adrenal adenomas. Mesenteric stranding with top normal size and number of retroperitoneal and mesenteric lymph nodes, may be related to right heart dysfunction. Cardiomegaly with small pleural effusions and findings suggestive of interstitial pulmonary edema. Primary Interpreting Staff: Zoe Craven MD, Radiologist (Assistant Chief Engineer) /ZOE RODRGIUEZ [facility] Feb 26, 2025 06:40 AM PET/CT TUMOR IMAGI NG (SKULL TO MID-THIGH)-P: GOSIA ZUNIGA [id number] -[id number] M Exm Date: FEB 26, 2025@06:40 Req Phys: HENNY MARLEY Loc: [facility]IO E-CONSULT (Req'g Loc Img Loc: [facility]-PET-CT Service: Unknown [address] [address] (Case [id number] COMPLETE) PET/CT TUMOR SKULL BASE TO MID-T(NM Detailed) CPT:24426 CPT Modifiers : PI PET TUMOR INIT TX STRAT Reason for Study: ct shows new adrenal nodules c/f metastatic disease (Case 1116 COMPLETE) F-18 FLUORODEOXYGLUCOSE (FDG),PER(NM Detailed) CPT:A9552 Clinical History: Report Status: Verified Date Reported: FEB 26, 2025 Date Verified: FEB 26, 2025 Assistant Chief Engineer E-Sig:/ES/Adele Hood MD,PhD Report: NAME: Gosia Zuniga CASE #: [id number] PROCEDURE: FDG PET/CT study HISTORY: 59-year-old male with history of amyloidosis currently treating with daratumumab. Patient is undergoing cardiac transplant evaluation and initial imaging demonstrated small bilateral indeterminate adrenal nodules. No other history of malignancy. TECHNIQUE: 13.91 mCi of F-18 FDG by IV in the left antecubital fossa. PET/CT image acquisition from the base of the skull to upper thighs after approximately 64 minutes postinjection with a CT being low dose, noncontrast. No separate report for the CT was generated since it was used for localization and attenuation correction. Blood glucose level of the time of injection was 110 mg/DL. SUV calculation was based on body weight. COMPARISON: There is no prior 18F-FDG PET/CT available for comparison. CT chest abdomen pelvis from 02/12/2025. CT chest from 03/01/2023. CT chest from 11/03/2021 at outside hospital. FINDINGS: For reference, SUV max of liver is 2.7. HEAD AND NECK: The brain is partially included in the [id number]. The visualized portion of the brain demonstrates physiologic 18F-FDG uptake. No hypermetabolic/enlarged cervical or supraclavicular lymphadenopathy. Asymmetric enlarged right thyroid lobe demonstrating mild diffuse 18F-FDG uptake, likely benign. CHEST: No hypermetabolic pulmonary nodule is identified. There is interstitial thickening with scarring in the lung apices, similar to prior CT examinations. No hypermetabolic/enlarged mediastinal or hilar lymphadenopathy. For reference, mediastinal blood pool SUV max 2.0. Small bilateral pleural effusions without focal 18F-FDG abnormality. No pneumothorax. There is moderate to severe cardiomegaly with a small pericardial effusion. Atherosclerotic calcifications of the coronary arteries and aortic arch. Gynecomastia demonstrating mild 18F-FDG activity, likely physiologic. ABDOMEN AND PELVIS: Bilateral adrenal glands demonstrating 18F-FDG activity similar to blood pool without focal 18F-FDG abnormality. For reference, right adrenal gland SUV max 1.9 and left adrenal gland SUV max 1.8. No hypermetabolic/enlarged abdominal or pelvic lymphadenopathy. Gallbladder is surgically absent. There is however new pneumobilia noted on this examination. Small amount of air is also noted within the remnant common bile duct. Soft tissue density located anterior to the spleen demonstrating metabolic activity similar to the spleen, likely splenule. Within limitation of low-dose CT, liver, spleen, pancreas and kidneys are grossly unremarkable. Prostate gland demonstrates homogenous 18F-FDG activity. Physiologic bowel activity is identified. MUSCULOSKELETAL: There is no 18F-FDG avid sclerotic or lytic osseous lesion. Multilevel degenerative changes are noted throughout the spine. Slightly increased activity in soft tissues of the right glenohumeral joint, likely inflammatory. Impression: 1. The bilateral adrenal glands demonstrate 18F-FDG activity similar to blood pool, likely benign. 2. There is no 18F-FDG PET/CT evidence of obvious malignancy. 3. Cardiomegaly with small pericardial effusion without abnormal focus of 18F-FDG uptake. Biilateral pleural effusions without abnormal focus of 18F-FDG uptake and interstitial thickening concerning for sequela of volume overload in the setting of cardiac amyloidosis. 4. Pneumobilia and small foci of air in the common bile duct. Etiology is indeterminate, could be could be secondary to recent manipulation. Correlate with recent clinical history versus sequela of infectious etiology. 5. Asymmetry enlarged right thyroid lobe with mild diffuse activity, likely benign. DIAGNOSTIC CODE: 1001 Dictated by Brian Garcia MD (resident hall director) IADELE, have reviewed the images and report and concur with these findings. Primary Diagnostic Code: SIGNIFICANT ABNORMALITY, ATTN NEEDED Primary Interpreting Staff: Adele Hood MD,PhD, Nuclear Medicine Physician (Assistant Chief Engineer) Primary Interpreting Resident: BRIAN GARCIA, RESIDENT PHYSICIAN /ADELE HOROWITZ [facility] Encounter Notes: All associated encounter notes This section contains the clinical notes associated to the Encounter. Date/Time Encounter Note(s) Provider Source March 27, 2025 06:11 AM CARDIOLOGY NOTE: LOCAL TITLE: CARDIOLOGY HEART FAILURE NOTE STL STANDARD TITLE: CARDIOLOGY NOTE DATE OF NOTE: MARCH 27, 2025@06:11 ENTRY DATE: MARCH 27, 2025@06:11:38 AUTHOR: ABRIL VERGARA EXP COSIGNER: URGENCY: STATUS: COMPLETED CARDIOLOGY HEART FAILURE NOTE STL Has ADDENDA [facility] ADVANCED HEART FAILURE SERVICE: FOLLOW-UP VISIT NOTE PRINCIPAL AND SECONDARY DIAGNOSES: 1. Cardiac amyloid, AL / Lambda subtype - Followd by Aris Chong and Justin Schaffer - Started on Rhina-CyBorD (11/12) - Seen by [facility] nephrology for kidney involvement (proteinuria) - Seen by [facility] GI for likely GI involvement (Sammi). 2. NICM - [facility] with clean cors 3. Atrial fibrillation - On Eliquis A/C 4. HTN 5. Low back pain 6. Gout 7. Lung nodules / pleural thickening of unknown origin. 8. Bilateral adrenal adenomas. CARE TEAM: 1. ADAMA CHACON INTERVAL HISTORY: We had the pleasure of seeing GOSIA ZUNIGA in the [facility] Advanced Heart Failure Program. As you know, GOSIA ZUNIGA is a 59 year old WHITE MALE with PMH notable for HFmrEF, biopsy proven cardiac amyloid (AL), with cardiac involvement proven on EMB. He is comanaged by the [facility] (Cards, GI, Heme-Onc, Renal). He follows with Justin Flowers, and has undergone treatment with Rhina-Cybor D, and has been tolerating this treatment well except for some nausea. 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 He notes he continues to have lower extremity edema, which has gotten slgihtly better taking torsemide 20 BID. He notes worsening orthopnea, with PND. He is starting to sleep in a recliner. He notes that since increasing his torsemide, he has dropped 5 lbs, but thinks he still has more fluid to remove. No CP, chest tightness. Notes he's having some breast tenderness from charlette. Continues with rare dizziness, LH. BP's low / normotensive at home. His symptoms are primarily due to fatigue, and significant shortness of breath when ambulating. CURRENT OUTPATIENT MEDICATIONS: Active Outpatient Medications (including Supplies): Active Outpatient Medications Status 1) CHLORHEXIDINE GLUCONATE 0.12% MOUTHWASH SWISH AND SPIT 15 ML ACTIVE BY MOUTH TWICE A DAY SWISH IN MOUTH UNDILUTED FOR 30 SECONDS THEN SPIT IN SINK. AVOID CONTACT WITH EYES. Indication: FOR PERIODONTITIS 2) DROXIDOPA 300MG ORAL CAP TAKE ONE CAPSULE BY MOUTH THREE ACTIVE TIMES A DAY Indication: FOR HYPOTENSION 3) SODIUM FLUORIDE 1.1% TOOTHPASTE USE DIRECTED BY MOUTH ACTIVE TWICE A DAY TOOTHPASTE (DO NOT SWALLOW) Indication: FOR DENTAL CARIES Active Non-VA Medications Status 1) Non-VA ACYCLOVIR 400MG TAB 400MG BY MOUTH THREE TIMES A DAY ACTIVE 2) Non-VA APIXABAN 5MG TAB 5MG BY MOUTH TWICE A DAY ACTIVE 3) Non-VA EMPAGLIFLOZIN TAB,ORAL 10MG BY MOUTH ONCE A DAY ACTIVE 4) Non-VA MIDODRINE HCL 10MG TAB 10MG BY MOUTH THREE TIMES A ACTIVE DAY 5) Non-VA PANTOPRAZOLE NA 40MG EC TAB 40MG BY MOUTH EVERY ACTIVE MORNING BEFORE A MEAL 6) Non-VA POLYETHYLENE GLYCOL 3350 ORAL PWDR 1 CAPFUL BY MOUTH ACTIVE ONCE A DAY NEEDED 7) Non-VA PROCHLORPERAZINE MALEATE 10MG TAB 10MG BY MOUTH EVERY ACTIVE 6 HOURS NEEDED 8) Non-VA SPIRONOLACTONE 25MG TAB 25MG BY MOUTH ONCE A DAY ACTIVE 9) Non-VA TORSEMIDE TAB 20MG BY MOUTH ONCE A DAY AND 10 BY ACTIVE MOUTH NIGHTLY 12 Total Medications - Droxidopa 300 TID - Eliquis 5BID - Midodrine 10 TID - Torsemide 20 BID - Waverly 25 - Empag 10 - All cardiac medications were reconciled during the visit. PHYSICAL EXAM: Temperature: 96.9 F [36.1 C] (03/27/2025 08:15) BP: 108/74 (03/27/2025 08:15) Pulse: 99 (03/27/2025 08:15) Resp: 18 (03/27/2025 08:15) Weight:179.6 lb [81.47 kg] (03/27/2025 08:15) BMI: 24.4 GENERAL: Thin WM, Sclera anicteric, PERRLA, MMM NECK: Carotids were brisk without bruits. CHEST/LUNGS: Clear to auscultation bilaterally with no rales or wheezes. Good respiratory effort and excursion. HEART: S1 S2, RRR, mild JVP on exam. ABDOMEN: Soft, nontender, BS positive x 4 quadrants EXTREMITIES: 1+ / 2 LE edema. NEUROLOGICAL: Alert and oriented x 3. Normal motor strength. PSYCHIATRIC: Mood and affect appropriate DIAGNOSTIC DATA: ###. ECHOCARDIOGRAM: 01/15 -The echocardiogram was reviewed, with findings of: 1. Normal left ventricular size. Moderate left ventricular hypertrophy. 2. Global systolic function: Overall left ventricular systolic function is moderate-severely impaired with an estimated ejection fraction of 30 - 35%. 3. Global longitudinal strain is abnormal at -6.7 %. There is mild apical sparing that may be suggestive of amyloidosis. 4. Regional systolic function: Wall motion: No regional wall motion abnormalities. 5. The right ventricle is mildly enlarged. Moderate right ventricular systolic dysfunction. 6. Diastolic function: Mitral inflow pattern and tissue Doppler is consistent with severe diastolic dysfunction and markedly elevated left atrial filling pressure. 7. The left atrium is mildly enlarged. 8. The right atrium is moderately enlarged. 9. The peak velocity of tricuspid regurgitant is 2.45 m/s with peak gradient of 24 mmHg. Mild pulmonary hypertension with an estimated right ventricular/pulmonary artery systolic pressure of 39 mm Hg. 10. The inferior vena cava is dilated (2.6 cm) with less than 50% inspiratory collapse, which is consistent with estimated right atrial pressure of 15 mmHg. 11. Effusion: Trivial pericardial effusion. 12. Apical left ventricular filling defect about 5 mm in diameter that is most likely trabeculae but cannot entirely rule out a thrombus. 12. As compared with the previous echocardiogram done on 12/01/2023, there has been no significant change. ###. CARDIAC CATH: - 2021: Clean coronaries ###. [facility] Sep 18, 2024 RIGHT HEART CATHETERIZATION Pressures (mmHg) RA mean: 20 RV: 45/ 20 PA: 43/ 27, mean 32 PCWP: 25 Mean BP: 85 Heart Rate: 76 bpm Hemoglobin: 15.3 Cardiac Output (Q): Q(Thermodilution): 3.1 L/min Q(Zakia): 3.1 L/min Cardiac Index (CI): BSA = 1.93 m^2 CI(Thermodilution): 1.6 L/min/m^2 CI(Zakia): 1.61 L/min/m^2 Stroke Volume (SV) and Index (SVI): BSA = 1.93 m^2 SV(Thermodilution): 41 ml SVI: 21.13 ml/m^2 SV(Zakia): 40.8 ml SVI: 21.1 ml/m^2 Vascular Resistance: Pulmonary vascular resistance: 2.3 Wood units Systemic vascular resistance: 1677 [id number]-pwd-zy^-[id number] Oxygen Saturations: Arterial saturation: 95% Mixed venous saturation: 57% Right Heart Cath Findings: 1. 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 Normal DPG 2 mmHg. 2. Decreased Bi-V function with Zakia and Td CO/CI: 3.1/1.6 and 3.1/1.6. 4. Decreased RV function with Tsering 0.8. 5. Elevated right/left sided filling pressures as evidenced by RAP 20 mmHg and PCWP 25 mmHg. 6. Normal transpulmonary gradient 7 mmHg. ###. ICD: - N/A ###. Current NYHA Class: IIIb ###. IMAGING: - cMRI ([facility], 07/2023) 1. Concentric LVH with mild-moderate global LV systolic dysfunction. LVEF 38%. 2. Upper limit of normal RV size, and mildly reduced global RV dysfunction< RVEF 39%. 3. LGE pattern suggests an infiltrative cardiomyopathy such as amyloidosis. No T1/T2 maps available. 4. Mild tricuspid regurgitation, no other significant valvular heart disease 5. Small pericardial effusion and pleural effusions. -PYP ([place], 2022) Impression: 1. The above described findings are not suggestive of TTR amyloidosis. (H:CL Ratio of 1.5) 2. Evaluation by serum and urine immunofixation and serum free light chain assay is recommended for abnormal M-protein and/or abnormal kappa/lambda ratio. 3. Cardiac MRI is recommended with presence of monoclonal protein. 4. Referral to hematology/oncology if (a) ECHO and CMR are positive and PYP is negative or (b) free light chains are abnormal or equivocal. ###. PFTs (2021) - Pulmonary function status showed a mild restrictive abnormality with TLC of 69% predicted. -HRCT showed stable nodules. Pulm plans to f/u with serial PFTs. - Repeat PFTs (2024) - FEV1 2.34L (60%), FVC 2.85 (55%) - DLCO 66% ###. CT Abdomen Impression: Low attenuation of the adrenal glands consistent with bilateral adrenal adenomas. Mesenteric stranding with top normal size and number of retroperitoneal and mesenteric lymph nodes, may be related to right heart dysfunction. Cardiomegaly with small pleural effusions and findings suggestive of interstitial pulmonary edema. ###. PET CT Impression: 1. The bilateral adrenal glands demonstrate 18F-FDG activity similar to blood pool, likely benign. 2. There is no 18F-FDG PET/CT evidence of obvious malignancy. 3. Cardiomegaly with small pericardial effusion without abnormal focus of 18F-FDG uptake. Biilateral pleural effusions without abnormal focus of 18F-FDG uptake and interstitial thickening concerning for sequela of volume overload in the setting of cardiac amyloidosis. 4. Pneumobilia and small foci of air in the common bile duct. Etiology is indeterminate, could be could be secondary to recent manipulation. Correlate with recent clinical history versus sequela of infectious etiology. 5. Asymmetry enlarged right thyroid lobe with mild diffuse activity, likely benign. ###. RUQ US (2024) Impression: Unremarkable right upper quadrant ultrasound examination. ###. Colon (2021) - 1 polyp removed. F/U 5 years. ###. Carotids (Dec 2024) - IMPRESSION:there is <50% stenosis of both internal carotid arteries. both external carotid arteries are patent and both vertebral arteries are antegrade. ###. ABIs (Dec 2024) - IMPRESSION:normal resting di's and toe pressures bilaterally ###. Blood Bank - Blood group O ###. LABORATORIES: COMPREHENSIVE METABOLIC PANEL SODIUM 135 L mEq/L 02/12/2025 08:24 POTASSIUM 4.2 mEq/L 02/12/2025 08:24 CHLORIDE 99 mEq/L 02/12/2025 08:24 UREA NITROGEN 29.3 H mg/dL 02/12/2025 08:24 CREATININE 1.36 H mg/dL 02/12/2025 08:24 CALCIUM 9.8 mg/dL 02/12/2025 08:24 PROTEIN 6.4 g/dL 02/12/2025 08:24 ALBUMIN 4.1 g/dL 02/12/2025 08:24 ALKALINE PHOSPHATASE 211 H U/L 02/12/2025 08:24 ALT/SGPT 29 U/L 02/12/2025 08:24 AST/SGOT 25 U/L 02/12/2025 08:24 TOTAL BILIRUBIN 0.9 mg/dL 02/12/2025 08:24 CARBON DIOXIDE 27 mEq/L 02/12/2025 08:24 GLUCOSE 122 H mg/dL 02/12/2025 08:24 EGFR (CKD-EPI 2020) 59.6 02/12/2025 08:24 COMPLETE BLOOD COUNT WBC 7.2 10*3/uL 02/12/2025 08:25 RBC 5.22 10*6/uL 02/12/2025 08:25 HGB 14.2 g/dL 02/12/2025 08:25 HCT 44.7 % 02/12/2025 08:25 MCV 85.6 fL 02/12/2025 08:25 MCH 27.2 pg 02/12/2025 08:25 MCHC 31.8 L g/dL 02/12/2025 08:25 RDW 13.2 % 02/12/2025 08:25 PLT 236 10*3/uL 02/12/2025 08:25 COAGULATION STUDIES INR VALUE 1.3 INR 02/12/2025 08:24 PROTIME 14.8 H sec 02/12/2025 08:24 HGA1C: 6.0 (2021) LIPIDS TRIGLYCERIDE 66 mg/dL 05/03/2023 11:07 CHOLESTEROL 166 mg/dL 05/03/2023 11:07 HDL(New) 37 L mg/dL 05/03/2023 11:07 CALCULATED LDL 116 mg/dL 05/03/2023 11:07 CARDIAC BIOMARKERS BNP: BRAIN NATRIURETIC PEPTIDE 1089.0 H pg/mL 02/10/2024 18:35 Trop: The OBJECT TROPONIN I EO was NOT found...Contact IRM. IRON STUDIES FERRITIN: FERRITIN 242.02 ng/mL 02/11/2024 20:00 TSAT: The OBJECT TRANSFERRIN EO was NOT found...Contact IRM. Test Name Result Units Range --------- ------ ----- ----- HIV Combo Nonreactive S/CO Ref: Nonreactive HBSAG Nonreactive S/CO Ref: Nonreactive HBsAB Nonreactive mIU/mL Ref: Nonreactive HEP C Ab HCV Ab (STL) Nonreactive S/CO Ref: Nonreactive PSA 0.347 ng/mL 0 - 4 RAPID PLASMA REAGIN (RPR) Non-Reactive Ref: NONREACTIVE CMV-IGG-EIA POSITIVE Ref: NEGATIVE CMV-IGM-EIA NEGATIVE Ref: NEGATIVE .QUANTIFERON NEGATIVE Ref: NEGATIVE .NIL - QUANTIFERON 0.03 IU/mL .MITOGEN-NIL 7.90 IU/mL .TB1-NIL 0.00 IU/mL .TB2-NIL <0.00 IU/mL NICOTINE <2 ng/mL Ref: COTININE <2 ng/mL Ref: TSH 1.316 uIU/mL 0.47 - 5 ASSESSMENT AND PLAN: In summary, GOSIA ZUNIGA is a 59 MALE with a history of HFmrEF who presents for advanced heart failure, cardiac amyloid. He is followed by the [facility], and is currently undergoing chemotherapy. Overall, the patient is endorsing NYHA class IIIb symptoms and appears euvolemic on exam today. BARRIERS TO CARE AND CANDIDACY FOR ADVANCED THERAPIES: - No significant barriers identified - He remains in remission and on maintenance rhina PLAN: #. AL LAMBDA Cardiac amyloid - Follows with Justin Oglesby - Remains on Empag 12.5 - Switch to eplerenone 25 from charlette due to breast tenderness. - Continue torsemide 20 BID - Continue midodrine 10 TID - Droxidopa 300 mg TID - Defer to [facility] re: chemo and further management. He appears to be on monthly maintenance daratumumab #. End-stage NICM - CI of 1.6 on RHC in September - Discussed that his symptoms are NYHA IIIB HF sympotms, and that there is potential for heart transplantation to alleviate this. We disussed the transplant evaluation processes. He wishes to proceed. I did caution him that I am concerned about his autonomic dysfuncion, but will nonetheless proceed and get a definitive decision from our multidisciplinary group. - His transplant workup is now largely complete - We will plan on submitting a TRACER and evaluating him locally for transplant #. Atrial fibrillation - S/P DCCV - He remains in NSR - Continue Eliquis #. CKD - Likely with proteinuria - Followed by Renal at [facility] #. HLD - Uninterested in statin #. DISPO - RTC in 3 months Thank you for allowing us to participate in this [facility]. Please do not hesitate to call the HF team with any questions or concerns. /luan/ ABRIL VERGARA MD PHD STAFF PHYSICIAN AND CHIEF OF HEART FAILURE Signed: 03/27/2025 13:10 03/29/2025 ADDENDUM STATUS: COMPLETED Reviewed case in multidisciplinary heart transplant meeting today. - Plan to admit to [facility] for further workup including RHC - Evaluation by surgery for candidacy - Check on HLA - Will call Mr. Zuniga to arrange. /luan/ ABRIL VERGARA MD PHD STAFF PHYSICIAN AND CHIEF OF HEART FAILURE Signed: 03/29/2025 15:45 ABRIL VERGARA [facility]
--- OUTSIDE RECORDS SUMMARY | 2025-06-24 11:48 | XMS_ITS | Encounter Summary ---
Author Name [facility] Organization [facility] [place] Address [address] [place] [address] Care Team Providers Care Rivet Thrower Name Role Phone OSWALDOKAROLINAE Primary Care Provider Tavo dean Insurance Providers: All historical and current Section Date Range: From patient's date of to the date document was created. This section includes the names of all active insurance providers for the patient. Insurance Provider Type of Coverage Plan Name Start of Policy Coverage End of Policy Coverage Group Number Member ID Insurance Provider's Telephone Number Policy Kennedy's Name Patient's Relationship to Policy Kennedy [facility] 2024 [facility] Nov 21, 2024 [facility] [id number] Elzbieta ZUNIGA PATIENT Selected Encounter This section includes the information on record at [place] for the Encounter. Date/Time Encounter Type Encounter Description Reason Provider Source Jun 28, 2024 09:43 AM OFFICE O/P EST MOD 30 MIN NON-OR ANESTHESIA PROCEDURES ICD-10-CM Z01.818 Encounter for other preprocedural examination LUIS VILLAVICENCIO Encounter Template Text not used by [place] Assessments - Encounter Diagnoses This section includes the primary and secondary diagnoses documented for the Encounter. Date/Time Primary/Secondary Diagnosis Diagnosis Name Provider Source Jun 28, 2024 09:59 AM PRIMARY Encounter for other preprocedural examination JAVED VILLAVICENCIO [facility] Jun 28, 2024 09:59 AM SECONDARY Encounter for other specified surgical aftercare JAVED VILLAVCIENCIO [facility] Plan of Treatment: Future Appointments (+ 6 months) and Future Tests (+/- 45 days) The Plan of Treatment section includes future care activities for the patient [facility] This section includes future appointments and future orders which are active, pending or scheduled. Future Appointments This section includes appointments that were scheduled to occur 6 months from the date of the Encounter, up to a maximum of 20 appointments. The data comes from all [place] treatment facilities. Appointment Date/Time Appointment Type Appointme nt Facility Name Sep 18, 2024 07:00 AM [facility]ATORY - [facility] Sep 18, 2024 07:15 AM AMBULATORY - MEDICINE [facility] Sep 18, 2024 12:00 PM AMBULATORY - MEDICINE [facility] Oct 27, 2024 12:11 PM AMBULATORY - MEDICINE [facility] Social History: Smoking Status (Most current) and Tobacco Use (All prior to encounter date) This section includes the most current, and the historical, smoking and tobacco- related health factors from the VA facility where the Encounter took place. Current Smoking Status This section includes the most current smoking, or tobacco-related health factor, from the [place] facility where the Encounter took place. Date/Time Current Smoking Status Ирина reyes Feb 10, 2024 06:16 PM ORYX ADMIT TOBACCO SCREEN NO [facility] Advance Directives: All historical and current Section Date Range: From patient's date of to the date document was created. This section includes ALL of a patient's completed or amended [place] Advance and Rescinded Directives. The entries below indicate that a directive exists for the patient, but an actual copy is not included with this document. The data comes from all [place] facilities. Date Advance Directives Provider Source Feb 16, 2024 ADVANCE DIRECTIVE GINA BRIGHT [facility] Encounter Notes: All associated encounter notes This section contains the clinical notes associated to the Encounter. Date/Time Encounter Note(s) Provider Source Jun 28, 2024 10:23 AM ANESTHESIOLOGY POS T OPERATIVE E & M NOTE: LOCAL TITLE: ANESTHESIA POST-OP STL STANDARD TITLE: ANESTHESIOLOGY POST OPERATIVE E & M NOTE DATE OF NOTE: JUN 28, 2024@10:23 ENTRY DATE: JUN 28, 2024@10:23:05 AUTHOR: JAVED VILLAVICENCIO EXP COSIGNER: URGENCY: STATUS: COMPLETED Post-Anesthesia Note No anesthestic complications noted at time of this note's filing. Anesthesia Intra-Op Flowsheet Uploaded to [employer] /es/ JAVED VILLAVICENCIO MD STAFF ANESTHESIOLOGIST Signed: 06/28/2024 12:59 JAVED VILLAVICENCIO [facility] Jun 28, 2024 09:48 AM ANESTHESIOLOGY PRE OPERATIVE E & M NOTE: LOCAL TITLE: ANESTHESIA PRE-OP STL STANDARD TITLE: ANESTHESIOLOGY PRE OPERATIVE E & M NOTE DATE OF NOTE: JUN 28, 2024@09:48 ENTRY DATE: JUN 28, 2024@09:48:06 AUTHOR: JAVED VILLAVICENCIO EXP COSIGNER: URGENCY: STATUS: COMPLETED GOSIA ZUNIGA is a 59 year old MALE Pre-operative diagnosis: CARDIOMYOPATHY/A FIB/HYPOTENSION Operation proposed: DIANNE/CARDIOVERSION VITALS Age: 59 Weight: 168.6 lb [76.48 kg] (06/27/2024 08:21) Height: 72 in [182.9 cm] (07/01/2023 14:35) BMI: 22.9 Blood pressure: 122/77 (06/27/2024 08:21) Pulse: 74 (06/27/2024 08:21) Temperature: 98.2 F [36.8 C] (06/27/2024 08:21) Respiration: 18 (06/27/2024 08:21) SpO2: 100% (06/27/2024 08:21) Pain: 2 (06/27/2024 08:21) ALLERGIES Patient has answered NKDA MEDICATIONS Inpatient: No medications found. Active Outpatient Medications (including Supplies): Active Outpatient Medications Status 1) ATORVASTATIN CALCIUM 80MG TAB TAKE ONE-HALF TABLET BY ACTIVE MOUTH EVERY EVENING FOR HIGH CHOLESTEROL 2) DROXIDOPA 300MG ORAL CAP TAKE ONE CAPSULE BY MOUTH ACTIVE THREE TIMES A DAY FOR HYPOTENSION 3) NUTRITION SUPL ENSURE PLUS/STRWBERRY LIQ TAKE 1 ACTIVE CANFUL BY MOUTH TWICE A DAY FOR NUTRITION/DIETARY SUPPLEMENTATION Active Non-VA Medications Status 1) Non-VA ACYCLOVIR 400MG TAB 400MG BY MOUTH THREE TIMES ACTIVE A DAY 2) Non-VA EMPAGLIFLOZIN TAB,ORAL 10MG BY MOUTH ONCE A ACTIVE DAY 3) Non-VA MIDODRINE HCL 10MG TAB 10MG BY MOUTH THREE ACTIVE TIMES A DAY 4) Non-VA PANTOPRAZOLE NA 40MG EC TAB 40MG BY MOUTH ACTIVE EVERY MORNING BEFORE A MEAL 5) Non-VA POLYETHYLENE GLYCOL 3350 ORAL PWDR 1 CAPFUL BY ACTIVE MOUTH ONCE A DAY NEEDED 6) Non-VA PROCHLORPERAZINE MALEATE 10MG TAB 10MG BY ACTIVE MOUTH EVERY 6 HOURS NEEDED 7) Non-VA SPIRONOLACTONE 25MG TAB 25MG BY MOUTH ONCE A ACTIVE DAY 8) Non-VA TORSEMIDE 10MG TAB 10MG BY MOUTH ONCE A DAY ACTIVE 11 Total Medications LABS WBC 6.4 10*3/uL 02/16/2024 20:00 RBC 4.89 10*6/uL 02/16/2024 20:00 HGB 14.2 g/dL 02/16/2024 20:00 HCT 43.5 % 02/16/2024 20:00 MCV 89.0 fL 02/16/2024 20:00 MCH 29.0 pg 02/16/2024 20:00 MCHC 32.6 L g/dL 02/16/2024 20:00 RDW 15.8 H % 02/16/2024 20:00 PLT 252 10*3/uL 02/16/2024 20:00 MPV 11.8 H fL 02/16/2024 20:00 NEUTROPHILS, AUTO % 83 % 02/16/2024 20:00 LYMPHOCYTES, AUTO % 6 % 02/16/2024 20:00 MONOCYTES, AUTO % 9 % 02/16/2024 20:00 EOSINOPHILS, AUTO % 1 % 02/16/2024 20:00 BASOPHILS, AUTO % 0 % 02/16/2024 20:00 NEUTROPHILS, ABSOLUTE 5.32 10*3/uL 02/16/2024 20:00 LYMPHOCYTES, ABSOLUTE 0.37 L 10*3/uL 02/16/2024 20:00 MONOCYTES, ABSOLUTE 0.59 10*3/uL 02/16/2024 20:00 EOSINOPHILS, ABSOLUTE 0.06 10*3/uL 02/16/2024 20:00 BASOPHILS, ABSOLUTE 0.02 10*3/uL 02/16/2024 20:[address]T FRACTION 13.3 H % 02/13/2024 14:00 POIKILOCYTOSIS 1+ 02/10/2024 18:35 OVALOCYTES 1+ 02/10/2024 18:35 TEARDROPS 1+ 02/10/2024 18:35 No INR EO data found No PTT EO data found SODIUM 133 L mEq/L 02/16/2024 20:00 POTASSIUM 4.3 mEq/L 02/16/2024 20:00 CHLORIDE 90 L mEq/L 02/16/2024 20:00 UREA NITROGEN 33.8 H mg/dL 02/16/2024 20:00 CREATININE 1.26 mg/dL 02/16/2024 20:00 CALCIUM 9.4 mg/dL 02/16/2024 20:00 PROTEIN 6.3 g/dL 02/11/2024 06:00 ALBUMIN 3.8 g/dL 02/16/2024 20:00 ALKALINE PHOSPHATASE 343 H U/L 02/11/2024 06:00 ALT/SGPT 25 U/L 02/11/2024 06:00 AST/SGOT 27 U/L 02/11/2024 06:00 TOTAL BILIRUBIN 1.4 H mg/dL 02/11/2024 06:00 CARBON DIOXIDE 33 H mEq/L 02/16/2024 20:00 GLUCOSE 137 H mg/dL 02/16/2024 20:00 EGFR (CKD-EPI 2020) 65.7 02/16/2024 20:00 No HEMOGLOBIN A1C EO data found No URINALYSIS EO data found No URINE DRUG SCREEN EO data found No TEST LAST ONE EO data found No HIV SCREENING EO data found [facility] Hep C tests in last five years. HEP C Ab HCV Ab (STL) Nonreactive S/CO (05/03/23 11:07) DIAGNOSTICS CXR: Impression for CHEST PORTABLE, 02/10/24, case [id number] 1. Interval bilateral pleural effusions. READING PHYSICIAN: Thomas Schmitt MD -[id number] 02/10/2024 20:40 EDT [facility] [employer] [facility] Program [phone] (For Medical Practitioner Use Only) Attention Patients / Veterans: If you have questions or concerns about these test results, please contact your ordering provider or primary care team. EK06/27/2024 16:28 Local Title: EKG CONSULT STL Standard Title: CARDIOLOGY DIAGNOSTIC STUDY CONSULT AUTHOR: CLINICAL,DEVICE PROXY SERVICE DOCUMENT IN VISTA IMAGING SEE FULL REPORT IN VISTA IMAGING SIGNATURE NOT REQUIRED SEE SIGNATURE IN VISTA IMAGING ([place] EKG) AUTO-INSTRUMENT DIAGNOSIS Procedure: [id number] 12 Lead ECG Release Status: Released Off-Line Verified Date Verified: Jun 27, 2024@16:28:15 06580.2 Ventricular Rate: 71 BPM 30380.5 QRS Duration: 100 ms 78870.6 Q-T Interval: 374 ms 66113 QTC Calculation(Bazett)406 ms 83843.13 Calculated R [place]: 119 degrees 93482.14 Calculated T [place]: 251 degrees Atrial fibrillation Right axis deviation Low voltage QRS, consider pulmonary disease, pericardial effusion, or normal variant Incomplete right bundle branch block Cannot rule out Anteroseptal infarct (cited on or before 21-SEP-2023) ST & T wave abnormality, consider lateral ischemia Abnormal ECG When compared with ECG of 10-FEB-2024 18:43, Significant changes have occurred Administrative Closure: 06/27/2024 by: CLINICAL,DEVICE PROXY SERVICE < THE ABOVE NOTE IS UNSIGNED > - DRAFT COPY * DRAFT COPY * DRAFT COPY * DRAFT COPY * DRAFT COPY * DRAFT COPY - PFT: No Pulmonary Function Test for this patient. Echocardiogram: PROGRESS NOTES SELECTED No data available for: ECHOCARDIOGRAPHIC RESULTS MA ECHOCARDIOGRAPHY CONSULT STL ECHO COMPLETED CONSULT STL TRANSESOPHAGEAL ECHOCARDIOGRAM CONSULT RESULTS (DIANNE) MA TRANSESOPHAGEAL ECHOCARDIOGRAM (DIANNE) CONSULT REPORT IMAGING IMPRESSION SELECTED No data available for: US ECHOCARDIOGRAPHY, TRANSTHORACIC US DOPPLER ECHOCARDIOGARPHY COLOR FLOW MAPPING -PB ONLY US DOPPLER ECHOCARDIOGRAPHY-PB ONLY US ECHOCARDIOGRAPHY, TRANSTHORACIC-PB ONLY CARDIOLOGY ECHOCARDIOGRAM No Data Available Stress test: No Stress Test Data available PROBLEM LIST 1) Hypertension 2) Gout 3) Back pain 4) Goiter 5) Pulmonary fibrosis 6) AL amyloidosis 7) Exposure to potentially hazardous substance 8) HFrEF - heart failure with reduced ejection fraction REVIEW OF SYSTEMS/PAST MEDICAL HISTORY Functional capacity: <4 METs, unable to walk 2 city blocks or climb flight of stairs RESPIRATORY for: + Recent or current SOB - Sleep apnea - Asthma - COPD + Pulmonary fibrosis CARDIAC for: - Recent chest pain - Hypertension - Hyperlipidemia - Myocardial infarction - Coronary artery disease + Heart failure, EF ~30%-35% - Valvular disease + Atrial fibrillation + Orthostatic hypotension PSYCH/CENTRAL NERVOUS for: - Depression - Anxiety - Post-traumatic stress disorder - Cerebral vascular accident - Seizures ENDOCRINE for: + Diabetes - Hypothyroid RENAL for: - Chronic kidney disease - Nephrolithiasis GI for: + GERD, no symptom - Liver disease - GI bleed VASCULAR/HEMATOLOGY/ONCOLOGY for: - Anemia - Thrombocytopenia - Bleeding disorders MUSCULOSKELETAL/SKIN/PERIPHE RAL NERVOUS for: - Obesity - Arthritis/Degenerative joint disease - Rheumatoid arthritis - Neuropathy /REPRODUCTIVE for: - Prostate hypertrophy HABITS Alcohol: Occasional Smoking: Denies Other drugs: Denies SURGICAL HISTORY Reviewed Previous anesthesia complications: None Family history of anesthesia complications: None PHYSICAL EXAM Alert & oriented x3 Heart: Regular rate, Regular rhythm Lungs: Clear to auscultation bilaterally AIRWAY: MP CLASS:I THYROMENTAL DISTANCE:3 finger breaths RANGE OF MOTION: FULL ; no pain on flexion/extension TEETH: Okay ASA CLASS 4. A patient with severe systemic disease that is a constant threat to life. ANESTHETIC PLAN Monitored Anesthesia Care (MAC) Planned anesthetic technique and options were discussed with the patient or guardian including risks, benefits, and potential complications. PRE-INDUCTION REASSESSMENT NPO Greater than 8 hours: Yes /luan/ JAVED VILLAVICENCIO MD STAFF ANESTHESIOLOGIST Signed: 06/28/2024 10:21 Receipt Acknowledged By: 06/28/2024 10:24 /luan/ JIMENEZ LEE CRNA CRNA, Anesthesiology JAVED VILLAVICENCIO [facility]
--- OUTSIDE RECORDS SUMMARY | 2025-06-24 11:48 | XMS_ITS ---
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 Date/Time Primary/Secondary Diagnosis Diagnosis Name Provider Source Sep 19, 2024 11:21 AM PRIMARY Light chain (AL) amyloidosis [facility] Plan of Treatment: Future Appointments (+ 6 months) and Future Tests (+/- 45 days) The Plan of Treatment section includes future care activities for the [facility] [place] [facility] This section includes future appointments and future orders which are active, pending or scheduled. Future Appointments This section includes appointments that were scheduled to occur 6 months from the date of the Encounter, up to a maximum of 20 appointments. The data comes from all [facility]. Appointment Date/Time Appointment Type Appointme nt Facility Name Oct 27, 2024 12:11 PM AMBULATORY - MEDICINE [facility] Jan 09, 2025 08:00 AM AMBULATORY - MEDICINE [facility] Jan 09, 2025 08:30 AM AMBULATORY - MEDICINE [facility] Jan 17, 2025 09:00 AM AMBULATORY - MEDICINE [facility] Jan 22, 2025 07:45 AM AMBULATORY - SURGERY [facility] Jan 25, 2025 07:30 AM AMBULATORY - NONE [facility] Jan 29, 2025 10:00 AM AMBULATORY - MEDICINE [facility] Feb 12, 2025 08:00 AM AMBULATORY - MEDICINE [facility] Feb 12, 2025 08:30 AM AMBULATORY - NONE [facility] Feb 26, 2025 07:15 AM AMBULATORY - NONE [facility] Mar 12, 2025 03:00 PM AMBULATORY - NONE [facility] Active, Pending, and Scheduled Orders This section includes a listing of several types of active, pending, and scheduled orders, including clinic medications orders, diagnostic test orders, procedure orders and consult orders; where the start date of the order is 45 days before the date of the Encounter or 45 days after the date of theEncounter. The data comes from all [facility]. Test Date/Time Test Type Test Details Facility Name Sep 18, 2024 12:00 AM Laboratory - Blood Bank Order TYPE & SCREEN - LAB BLOOD SP [facility] Sep 26, 2024 12:00 AM Laboratory - Chemi stry Order BASIC METABOLIC PANEL GREEN LI/HEP BLD/PLAS PLASMA SP [facility] Lab Results: +/- 30 days of the encounter This section includes the Chemistry and Hematology Lab Results on record with [facility] for the patient. Radiology Reports and Pathology Reports are provided separately, in subsequent sections. Lab Results This section contains the Chemistry/Hematology Results that were resulted 30 days before or 30 daysafter the date of the Encounter. Date/Time Source Result Type Result - Unit Interpretation Reference Range Specimen Type Comment Sep 18, 2024 08:40 AM [facility] POC AVOX PANEL BLOOD Specimen Type: BLOOD Comment: Test Performed by: [id number] Meter #: [id number] Ordering Provider: ADAMA CHACON Report Released Date/Time: Sep 18, 2024 09:03 AM Reporting Lab: [address] [address] Performing Lab: [address] [address] POC AVOX O2HB 75.8 L 92-100 POC AVOX THB 14.7 g/dL 13.1-16.8 Sep 18, 2024 08:38 AM [facility] POC AVOX PANEL BLOOD Specimen Type: BLOOD Comment: Test Performed by: [id number] Meter #: [id number] Ordering Provider: ADAMA CHACON Report Released Date/Time: Sep 18, 2024 09:00 AM Reporting Lab: [address] [address] Performing Lab: [address] [address] POC AVOX O2HB 69.7 L 92-100 POC AVOX THB 14.9 g/dL 13.1-16.8 Sep 18, 2024 08:37 AM [facility] POC AVOX PANEL BLOOD Specimen Type: BLOOD Comment: Test Performed by: [id number] Meter #: [id number] Ordering Provider: ADAMA CHACON Report Released Date/Time: Sep 18, 2024 08:59 AM Reporting Lab: [address] [address] Performing Lab: [address] [address] POC AVOX O2HB 62.7 L 92-100 POC AVOX THB 14.9 g/dL 13.1-16.8 Sep 18, 2024 08:35 AM [facility] POC AVOX PANEL BLOOD Specimen Type: BLOOD Comment: Test Performed by: [id number] Meter #: [id number] Ordering Provider: ADAMA CHACON Report Released Date/Time: Sep 18, 2024 08:58 AM Reporting Lab: [address] [address] Performing Lab: [address] [address] POC AVOX O2HB 61.3 L 92-100 POC AVOX THB 15.2 g/dL 13.1-16.8 Sep 18, 2024 06:55 AM [facility] PT/INR NEW (STL-MA) PLASMA Specimen Type: PLAS MA No comment entered. Ordering Provider: BARBI STOKES Report Released Date/Time: Aug 23, 2024 02:43 PM Reporting Lab: [address] [address] Performing Lab: [address] [address] PROTIME 20.6 s H 9.4-12.5 INR VALUE 1.9 {INR} Sep 18, 2024 06:55 AM [facility] BASIC METABOLIC PANEL PLASMA Specimen Type: PL ASMA Comment: No hemolysis noted. Ordering Provider: BARBI STOKES Report Released Date/Time: Aug 23, 2024 02:43 PM Reporting Lab: [address] [address] Performing Lab: [address] [address] CREATININE 1.42 mg/dL H 0.7-1.3 UREA NITROGEN 23.7 mg/dL 9.0-25.0 GLUCOSE 109 mg/dL H 72-99 SODIUM 136 meq/L 136-145 POTASSIUM 4.4 meq/L 3.5-5 CHLORIDE 100 meq/L 98-107 CARBON DIOXIDE 25 meq/L 22-31 CALCIUM 10.0 mg/dL 8.4-10.4 EGFR (CKD-EPI 2020) 56.6 >60 Sep 18, 2024 06:55 AM [facility] CBC BLOOD Specimen Type: BLOOD No comment entered. Ordering Provider: BARBI STOKES Report Released Date/Time: Aug 23, 2024 02:43 PM Reporting Lab: [facility] [address] [facility] [address] Performing Lab: [facility] [address] [facility] [address] WBC 7.7 10*3/uL 3.6-11.2 RBC 5.21 10*6/uL 4.10-5.70 HGB 15.3 g/dL 13.1-16.8 HCT 47.3 38.2-48.4 MCV 90.8 fL 80.0-100.0 MCH 29.4 pg 27.0-34.0 MCHC 32.3 g/dL L 33.0-36.0 PLT 241 10*3/uL 150-400 MPV 10.9 fL 7.5-11.2 RDW 13.2 11.8-15.1 LYMPHOCYTES, AUTO % 12 MONOCYTES, AUTO % 10 NEUTROPHILS, AUTO % 76 EOSINOPHILS, AUTO % 1 BASOPHILS, AUTO % 0 LYMPHOCYTES, ABSOLUTE 0.91 10*3/uL 0.77- 4.50 MONOCYTES, ABSOLUTE 0.79 10*3/uL 0.19-0. 80 NEUTROPHILS, ABSOLUTE 5.88 10*3/uL 2.10- 8.00 EOSINOPHILS, ABSOLUTE 0.09 10*3/uL 0.00- 0.60 BASOPHILS, ABSOLUTE 0.03 10*3/uL 0.00-0. 20 Vital Signs: All taken on the encounter date This section contains inpatient and outpatient Vital Signs collected on the date of the Encounter. Date/Time Temperature Pulse Blood Pressure Respiratory Rate SP02 Pain Height Weight Body Mass Index Source Sep 18, 2024 09:25 AM 98 73 123/87 18 98 0 [facility] Sep 18, 2024 06:43 AM 81 18 [facility] Sep 18, 2024 06:42 AM 97.9 117/80 100 4 72 159 22 [facility] Social History: Smoking Status (Most current) and Tobacco Use (All prior to encounter date) This section includes the most current, and the historical, smoking and tobacco- related health factors from the [place] facility where the Encounter took place. Current Smoking Status This section includes the most current smoking, or tobacco-related health factor, from the [place] facility where the Encounter took place. Date/Time Current Smoking Status Comment Khurram reyes Feb 10, 2024 06:16 PM ORYX ADMIT TOBACCO SCREEN NO [facility] Advance Directives: All historical and current Section Date Range: From patient's date of to the date document was created. This section includes ALL of a patient's completed or amended [place] Advance and Rescinded Directives. The entries below indicate that a directive exists for the patient, but an actual copy is not included with this document. The data comes from all [place] facilities. Date Advance Directives Provider Source Feb 16, 2024 ADVANCE DIRECTIVE GINA BRIGHT [facility] Encounter Notes: All associated encounter notes This section contains the clinical notes associated to the Encounter. Date/Time Encounter Note(s) Provider Source Sep 18, 2024 02:35 PM CARDIOLOGY NURSING PREPROCEDURE NOTE: LOCAL TITLE: SOAPSTONER PROCEDURE STL STANDARD TITLE: CARDIOLOGY NURSING PREPROCEDURE NOTE DATE OF NOTE: SEP 18, 2024@14:35 ENTRY DATE: SEP 18, 2024@14:36:04 AUTHOR: TASHA GOLDSTEIN EXP COSIGNER: ALESHA RAY URGENCY: STATUS: COMPLETED SOAPSTONER PROCEDURE STL Has ADDENDA CARDIOLOGY [facility] HOSTESS - DIANNE/DCCV CASE REPORT Patient Information Patient Name: Gosia Ann Date of : 1965 Age: 59 years Gender: M Study Information Scheduled Start Study Start 09/18/2024 09/18/2024 12:10 Facility Department [facility] - Echo Lab Physician and Clinical Staff Initial MD: Alesha Ray Monitored Sedation Nurse: Tasha Goldstein MEDICATION TOTALS 2MG VERSED 25MCG FENTANYL Vitals Summary Time HR NIBP SpO2 Resp EtCO2 Pain Level Fuentes Comment 12:24:44 79 103/66 100.0 20 35 0 2 12:50:43 69 90/58 100.0 17 30 0 3 12:55:48 62 86/55 100.0 19 32 0 3 13:00:40 65 82/61 100.0 17 32 0 3 13:05:17 86 106/81 100.0 12 37 0 3 13:10:48 88 101/84 100.0 19 33 0 3 13:15:03 83 107/74 100.0 12 36 0 3 13:20:43 87 102/70 100.0 14 31 0 2 13:25:25 83 101/74 100.0 18 33 0 2 13:30:00 86 105/75 100.0 19 37 0 2 Chronological Log Time Study Chronological Log 12:09:54 DIANNE w/possible DCCV 12:10:04 Patient arrives to prep room from [facility] via transport. Had RHC this AM with access in [facility], dressed with gauze and tegaderm. Clean, dry, and intact. 12:10:22 NPO Since: 0000 12:10:25 Allergy list reviewed with patient. 12:10:29 Pre-cardioversion EKG completed 12:10:30 IV site: 20G L HAND present upon arrival to ECHO LAB. Flushed and patent. 12:10:52 IV Fluids: 500mL NS KVO 12:24:44 HR=79 bpm, KZRE=705/66 mmhg, YbH6=633 %, Resp=20 B/min, EtCO2=35 mmHg, Pain=0, Fuentes=2 12:25:12 Attending MD present: Dr. Ray 12:25:21 Consent signed prior to RHC 12:25:35 Time out including patient, procedure & site verification took place with staff, physician and patient prior to start of case. 12:25:37 Lidocaine 4% 10 ml prep completed as ordered by MD. Read back and confirmed. 12:25:39 Oxygen applied via nasal cannula at: 3L 12:25:51 probe number: [id number] 12:46:04 1 mg VERSED given in lab by Tasha Goldstein in Left Hand via Peripheral IV. Ordered by Alesha Ray. Reason: Verbal order, read back and confirmed. 12:46:05 25 mcg FENTANYL given in lab by Tasha Goldstein in Left Hand via Peripheral IV. Ordered by Alesha Ray. Reason: Verbal order, read back and confirmed. 12:50:31 probe insertion 12:50:43 HR=69 bpm, NIBP=90/58 mmhg, OzJ0=267 %, Resp=17 B/min, EtCO2=30 mmHg, Pain=0, Fuentes=3 12:55:48 HR=62 bpm, NIBP=86/55 mmhg, EfB5=491 %, Resp=19 B/min, EtCO2=32 mmHg, Pain=0, Fuentes=3 13:00:40 HR=65 bpm, NIBP=82/61 mmhg, BrS5=332 %, Resp=17 B/min, EtCO2=32 mmHg, Pain=0, Fuentes=3 13:01:52 Bubble Study 13:01:55 probe removal 13:02:25 1 mg VERSED given in lab by Tasha Goldstein in Left Hand via Peripheral IV. Ordered by Alesha Ray. Reason: Verbal order, read back and confirmed. 13:04:46 Patient cardioverted using 200 synchronized Joules. 13:04:56 Post cardioversion EKG completed 13:05:17 HR=86 bpm, FTSM=781/81 mmhg, BmM5=215 %, Resp=12 B/min, EtCO2=37 mmHg, Pain=0, Fuentes=3 13:10:48 HR=88 bpm, MLXP=143/84 mmhg, BfX5=676 %, Resp=19 B/min, EtCO2=33 mmHg, Pain=0, Fuentes=3 13:13:46 Narcotics wasted in Pyxis with Tasha Goldstein RN and Ana Hirsch RN 13:15:03 HR=83 bpm, EKWX=736/74 mmhg, AnU5=981 %, Resp=12 B/min, Pain=0, Fuentes= 3 13:16:37 IV to remain in [address] for continued care in [facility]. 13:20:43 HR=87 bpm, NIVJ=206/70 mmhg, KzM9=910 %, Resp=14 B/min, EtCO2=31 mmHg, Pain=0, Fuentes=2 13:25:25 HR=83 bpm, VNCE=999/74 mmhg, NpA1=989 %, Resp=18 B/min, EtCO2=33 mmHg, Pain=0, Fuentes=2 13:30:00 HR=86 bpm, XJFE=996/75 mmhg, KiC4=912 %, Resp=19 B/min, EtCO2=37 mmHg, Pain=0, Fuentes=2 13:30:18 Procedure results discussed with Patient by Kalin 13:30:24 Report called to receiving RN in [facility] Melissa 13:30:[address] Ray, pt ok for discharge back to [facility]. Alert and oriented x4. Respirations even and unlabored. Total of 800mL NS infused. RIJ dressing remains clean, dry, and intact. Discharge instructions reviewed with patient with understanding verbalized. No signs of complications. 14:10:02 Pt discharged to: [facility] via ECHO STAFF End Study - No Complications The following discharge instructions were reviewed with the patient and receiving RN with understanding verbalized. A paper copy was given for further reference: Echo Lab DISCHARGE INSTRUCTIONS You have just had a diagnostic and/or therapeutic procedure performed under moderate or general sedation. It is not uncommon to have trouble remembering what happened during your procedure, and/or feel tired for the rest of the day. Therefore, you must return home with a responsible adult who will remain with you overnight. You should not take public transit after the procedure. Do not drive, use machinery or power tools or sign important documents or make important legal or financial decisions for the next 24 hours. You can resume normal activities 24 hours after the end of the procedure. If a Transesophageal Echo procedure was performed: 1. A numbing gel or spray was used on your throat for the procedure. Do not eat or drink anything for 2 hours after the end of your procedure. After 2 hours have passed, you can start with sips of water while sitting upright to be sure you are able to swallow well. If you do not have any trouble swallowing, you can start your regular diet. 2. It is normal to feel soreness in your throat. This will usually resolve in 1 to 2 days. In the meantime, drink plenty of water and you can use cough drops to soothe your throat. 3. Sometimes you can have blood tinged phlegm or saliva, this should resolve in 24 hours. 4. Dont drink alcoholic beverages or smoke for 24 hours after your procedure. If a Cardioversion procedure was performed: 1. You may experience chest skin irritation; this will usually resolve within 2 days. 2. You will be prescribed a blood thinner, it is especially important to be compliant with this medication for at least 4 weeks, to reduce the risk of stroke. Notify your physician or go directly to the emergency room if: 1. Fever over 38.5 C or 101.3 F, or shakes or chills 2. Difficulty swallowing that lasts for than 2 hours after the end of the procedure 3. Shortness of breath or difficulty breathing, or heart rate over 100 beats per minute 4. Blood in your phlegm or saliva more than 24 hours after your procedure 5. Severe abdominal pain or abdominal distention 6. Persistent nausea, vomiting, or vomiting blood 7. Dizziness, light headedness, confusion, numbness, tingling, double vision, exhaustion, extreme weakness, sweating, or pale/blue skin YOU MAY REACH ECHO LAB STAFF ON MON-FRI 7:30am-4pm AT [phone] [place] , EXT. [phone] or [phone]. After 4pm and on weekends a Cardiology physician can be reached by calling [phone] or . Ask the bleach plant operator to speak with the back stayer, on-call. Post Anesthesia Sedation Score - Phase 1 Phase 1 Discharge Criteria TOTAL SCORE=14 Oxygenation 2 Points - SpO2 greater than or equal to 94% or baseline on room air PACU Respiratory Status 2 Points - Normal breathing and deep cough on command Circulatory Status 2 Points - BP/HR less than 20% or 20 mmHg of baseline Level of Consciousness 2 Points - Fully awake or easily awakened Pain 2 Points - Minimal or none - Pain Score 0-4 or at tolerable level or at baseline Nausea/Vomiting 2 Points - Minimal or none Level of Activity 2 Points - Able to move all extremities voluntarily or on command or moves all extremities with the exception of extremity treated with peripheral nerve block or patient baseline [place]-PAS Phase 1 time documented Time: 1332 Post Anesthesia Sedation Score - Phase 2 Phase 2 Discharge Criteria TOTAL SCORE=10 Pain 2 Points - Minimal or none - Pain Score 0-4 or at tolerable level or at baseline Nausea/Vomiting 2 Points - Minimal or none Circulatory Status 2 Points - BP/HR less than 20% or 20 mmHg of baseline Activity and Mental Status 2 Points - Oriented x3 AND has steady gait (at baseline for non-ambulating patients) Surgical Site/Dressing 2 Points - Dry and Clean or Not Applicable (for example, Endoscopy) [facility] Phase 2 time documented Time: 1332 /kimberly GOLDSTEIN RN SOAPSTONER Signed: 09/18/2024 14:43 /kimberly RAY MD,[facility] STAFF SEED CUTTER Cosigned: 09/18/2024 14:51 09/18/2024 ADDENDUM STATUS: COMPLETED I have reviewed this note and have ordered the medications/treatments as recorded /kimberly RAY MD,[facility] STAFF SEED CUTTER Signed: 09/18/2024 14:51 TASHA GOLDSTEIN [facility] Sep 18, 2024 02:11 PM CARDIOLOGY DIAGNOSTIC STUDY CONSULT: LOCAL TITLE: EKG CONSULT ST STANDARD TITLE: CARDIOLOGY DIAGNOSTIC STUDY CONSULT DATE OF NOTE: SEP 18, 2024@14:11:01 ENTRY DATE: SEP 18, 2024@14:11:01 AUTHOR: CLINICAL,DEVICE PRO EXP COSIGNER: URGENCY: STATUS: COMPLETED DOCUMENT IN VISTA IMAGING SEE FULL REPORT IN VISTA IMAGING SIGNATURE NOT REQUIRED SEE SIGNATURE IN VISTA IMAGING ([place] EKG) AUTO-INSTRUMENT DIAGNOSIS Procedure: [id number] 12 Lead ECG Release Status: Released Off-Line Verified Date Verified: Sep 18, 2024@14:10:56 38744.2 Ventricular Rate: 86 BPM 68749.3 Atrial Rate: 86 BPM 94649.4 P-R Interval: 228 ms 62153.5 QRS Duration: 98 ms 49970.6 Q-T Interval: 364 ms 75587 QTC Calculation(Bazett)435 ms 76074.12 Calculated P [place]: 73 degrees 87531.13 Calculated R [place]: 185 degrees 06054.14 Calculated T [place]: 3 degrees Sinus rhythm with 1st degree A-V block Incomplete right bundle branch block Possible Right ventricular hypertrophy Septal infarct (cited on or before 21-SEP-2023) Lateral infarct (cited on or before 21-SEP-2023) Abnormal ECG When compared with ECG of 18-SEP-2024 12:14, Sinus rhythm has replaced Atrial fibrillation Nonspecific T wave abnormality, improved in Lateral leads QT has lengthened Administrative Closure: 09/18/2024 by: CLINICAL,DEVICE PROXY SERVICE CLINICAL,DEVICE PROXY SERVICE [facility] Sep 18, 2024 02:10 PM CARDIOLOGY DIAGNOSTIC STUDY CONSULT: LOCAL TITLE: EKG CONSULT STL STANDARD TITLE: CARDIOLOGY DIAGNOSTIC STUDY CONSULT DATE OF NOTE: SEP 18, 2024@14:10:39 ENTRY DATE: SEP 18, 2024@14:10:39 AUTHOR: CLINICAL,DEVICE PRO EXP COSIGNER: URGENCY: STATUS: COMPLETED DOCUMENT IN VISTA IMAGING SEE FULL REPORT IN VISTA IMAGING SIGNATURE NOT REQUIRED SEE SIGNATURE IN VISTA IMAGING ([place] EKG) AUTO-INSTRUMENT DIAGNOSIS Procedure: [id number] 12 Lead ECG Release Status: Released Off-Line Verified Date Verified: Sep 18, 2024@14:10:34 40542.2 Ventricular Rate: 79 BPM 72204.5 QRS Duration: 96 ms 37598.6 Q-T Interval: 332 ms 09955 QTC Calculation(Bazett)380 ms 21609.13 Calculated R [place]: 197 degrees 37607.14 Calculated T [place]: -75 degrees Atrial fibrillation Incomplete right bundle branch block Possible Right ventricular hypertrophy Anterolateral infarct (cited on or before 21-SEP-2023) Abnormal ECG When compared with ECG of 18-SEP-2024 07:04, Questionable change in initial forces of Lateral leads Administrative Closure: 09/18/2024 by: CLINICAL,DEVICE PROXY SERVICE CLINICAL,DEVICE PROXY SERVICE [facility] Sep 18, 2024 02:10 PM CARDIOLOGY DIAGNOSTIC STUDY REPORT: LOCAL TITLE: CP ECHO DIANNE STL STANDARD TITLE: CARDIOLOGY DIAGNOSTIC STUDY REPORT DATE OF NOTE: SEP 18, 2024@14:10:09 ENTRY DATE: SEP 18, 2024@14:10:09 AUTHOR: CLINICAL,DEVICE PRO EXP COSIGNER: URGENCY: STATUS: COMPLETED DOCUMENT IN VISTA IMAGING SEE FULL REPORT IN VISTA IMAGING SIGNATURE NOT REQUIRED SEE SIGNATURE IN VISTA IMAGING ([employer] DIANNE (P)) AUTO-INSTRUMENT DIAGNOSIS Procedure: DIANNE CP DIANNE ECHOCARDIOGRAM LUIS Release Status: Released Off-Line Verified Date Verified: Sep 18, 2024@14:09:17 Administrative Closure: 09/18/2024 by: CLINICAL,DEVICE PROXY SERVICE CLINICAL,DEVICE PROXY SERVICE [facility] Sep 18, 2024 01:14 PM CARDIOLOGY PROCEDURE NOTE: LOCAL TITLE: CARDIOVERSION NOTE STL STANDARD TITLE: CARDIOLOGY PROCEDURE NOTE DATE OF NOTE: SEP 18, 2024@13:14 ENTRY DATE: SEP 18, 2024@13:14:33 AUTHOR: ALESHA RAY EXP COSIGNER: URGENCY: STATUS: COMPLETED Cardioversion report: Indication: Persistent Atrial fibrillation See separate CARDIOLOGY OUTPATIENT PRE-PROCEDURAL NOTE for pre-procedure assessment today. DESCRIPTION OF PROCEDURE: Written informed consent was obtained. The patient was sedated with 1 mg of Versed and 25 mcg of fentanyl. After confirming no intracardiac thrombus by DIANNE, patient was given additional 1 mg of versed for sedation OR by anesthesiology service with good result. A biphasic synchronized DC of 200 J was applied anteriorly-posteriorly with successful conversion to sinus rhythm. Twelve leads EKG confirms sinus rhythm. Patient tolerates procedure well without complication. Impression: Successful cardioversion. Recommendation: Continue anticoagulation. Result and recommendation was discussed with patient after the procedure. /luan/ ALESHA RAY MD,[facility] STAFF SEED CUTTER Signed: 09/18/2024 13:15 Receipt Acknowledged By: 09/18/2024 15:23 /luan/ ABRIL VERGARA MD PHD STAFF PHYSICIAN AND CHIEF OF HEART FAILURE ALESHA RAY [facility] Sep 18, 2024 10:44 AM CARDIOLOGY PREPROCEDURE NOTE: LOCAL TITLE: CARDIOLOGY PRE-PROCEDURAL NOTE STL STANDARD TITLE: CARDIOLOGY PREPROCEDURE NOTE DATE OF NOTE: SEP 18, 2024@10:44 ENTRY DATE: SEP 18, 2024@10:44:06 AUTHOR: ALESHA RAY EXP COSIGNER: URGENCY: STATUS: COMPLETED PRE-SEDATION ASSESSMENT Date of study: SEP 18, 2024 Name: GOSIA ANN Date of : Apr Height: 72 in [182.9 cm] (09/18/2024 06:42) Weight: 159 lb [72.12 kg] (09/18/2024 06:42) Body Surface Area (BSA) = 1.914 History and indication: 59 year-old MALE with NIHARIKA thrombus and AFib. Repeat DIANNE to assess for resolution of thrombus and potential DCCV. History of present illness: This is 59 year old MALE with HFmrEF, biopsy proven cardiac amyloid (AL), AF. He was found ot have NIHARIKA thrombus per DIANNE 06/28/24. He was continued on apixaban and refered for repeat DIANNE for follow up with possible DCCV. He has stable MOORE. Patient denies exertional chest pain, palpitation. No orthopnea, PND or leg swelling. No syncope, dizziness, claudication. Last PO intake more than 6 hours ago. Past Medical History: 1) Hypertension 2) Gout 3) Back pain 4) Goiter 5) Pulmonary fibrosis 6) AL amyloidosis 7) Exposure to potentially hazardous substance 8) HFrEF - heart failure with reduced ejection fraction Current Medication: Inpatient meds: No medications found. Active Outpatient Medications (including [...] THREE TIMES ACTIVE A DAY 2) Non-VA APIXABAN 5MG TAB 5MG BY MOUTH TWICE A DAY ACTIVE 3) Non-VA EMPAGLIFLOZIN TAB,ORAL 10MG BY MOUTH ONCE A ACTIVE DAY 4) Non-VA MIDODRINE HCL 10MG TAB 10MG BY MOUTH THREE ACTIVE TIMES A DAY 5) Non-VA PANTOPRAZOLE NA 40MG EC TAB 40MG BY MOUTH ACTIVE EVERY MORNING BEFORE A MEAL 6) Non-VA POLYETHYLENE GLYCOL 3350 ORAL PWDR 1 CAPFUL BY ACTIVE MOUTH ONCE A DAY NEEDED 7) Non-VA PROCHLORPERAZINE MALEATE 10MG TAB 10MG BY ACTIVE MOUTH EVERY 6 HOURS NEEDED 8) Non-VA SPIRONOLACTONE 25MG TAB 25MG BY MOUTH ONCE A ACTIVE DAY 9) Non-VA TORSEMIDE 10MG TAB 10MG BY MOUTH ONCE A DAY ACTIVE 12 Total Medications All meds were reviewed with patient. Allergy: Patient has answered NKA Family history: No premature coronary disease or sudden Social history: TOBACCO USE - No ALCOHOL USE - Occ COCCAINE - No Other receation drugs - No Review of systems: All systems reveiwed are negative except for HPI. Physical Exam: Vital: reviewed as documented in the chart. General: Patient is in no acute distress. HEENT: No xanthelasma or oral mucosa cyanosis Neck: supple, no jugular vein distention or thyroid enlargement. Respiratory: Patient breaths comfortable. Lung is clear to auscultation and percussion bilaterally. No crackles and wheezing. Cardiovascular: The point of maximal impact is not displaced. Heart has irregularly irregular rhythm. normal S1 and S2. No murmurs, rubs or gallops. There are no bruits in carotid arteries, abdominal aorta or femoral arteries bilaterally. Pulses in femoral arteries and pedal arteries are ++ bilaterally. There are no peripheral edema or varicosities. Abdomen: soft, no tenderness or masses. No hepatospleenomegaly. Extremities: No clubbing or cyanosis. Skin: No rash, subcutaneous xanthomas. Neurological/Psychiatric: Alert and orient to time, place and person. Normal affect and mood. Diagnostic data: HGB A1C (last):No HEMOGLOBIN A1C EO data found LDL(DIRECT):____ HDL: 37 mg/dL L (05/03/23 11:07) CHOLESTEROL 166 mg/dL 05/03/2023 11:07 CALCULATED LDL 116 mg/dL 05/03/2023 11:07 Triglycerides:66 mg/dL (05/03/23 11:07) WBC:7.7 10*3/uL (09/18/24 06:55) RBC:5.21 10*6/uL (09/18/24 06:55) HGB 15.3 g/dL 09/18/2024 06:55 HCT:47.3 % (09/18/24 06:55) PLT 241 10*3/uL 09/18/2024 06:55 Chem 7 GLUCOSE 109 H mg/dL 09/18/2024 06:55 BUN: 23.7 mg/dL (09/18/24 06:55) CREATININE 1.42 H mg/dL 09/18/2024 06:55 SODIUM 136 mEq/L 09/18/2024 06:55 POTASSIUM 4.4 mEq/L 09/18/2024 06:55 CHLORIDE 100 mEq/L (09/18/24 06:55) CARBON DIOXIDE 25 mEq/L 09/18/2024 06:55 EKG today was personally reviewed and showed AFib ASA score: 3 mallampati score: 2 Has the patient had a analgesia/sedation in the past? Yes Has the patient had an adverse reaction to analgesia/sedation? No Asseessment: 1. AFib Plan: Proceed with DIANNE with moderate sedation. /luan/ ALESHA RAY MD,[facility] STAFF SEED CUTTER Signed: 09/18/2024 13:52 ALESHA RAY [facility]
--- OUTSIDE RECORDS SUMMARY | 2025-06-24 11:48 | XMS_ITS | Encounter Summary ---
Author Organization [facility] Address [address] [place] [address] Phone Care Team Providers Care Corporate Training Manager Name Role Phone Anuel Vargas Primary Care Provider [phone] Justin Flowers MD Unavailable Erlin Chong MD Unavailable Katerina Romero RN Unavailable Unavailable Alexandra Powell RN Unavailable Encounter Details Date Type Department Care Team (Late st Contact Info) Description 05/08/2025 Documentation [facility] Endocrinology Metabolism and Lipid [address] [facility] 13th [place] [address] [place] [address] Edmundo Best MD [address] [place] [address] Social History Tobacco Use Types Packs/Day Years Used Date Smoking Tobacco: Never Passive Smoke Exposure: Never Smokeless Tobacco: Never [facility] Utilities Answer Date Recorded In the past 12 months has [facility], gas, oil, or water [employer] threatened to shut off services in your [...] often do you attend chur ch or yarsani services? 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 Gender Identity Male 05/28/2021 8:44 PM CDT Sexual Orientation Straight 10/19/2022 9: 47 AM SCHOOL PSYCHOLOGICAL EXAMINER documented as of this encounter Plan of Treatment Upcoming Encounters Date Type Department Care Team (Late st Contact Info) Description 07/01/2025 Hospital Encounter [facility] [place] [address] [place] [address] [address] [place] [address] Dmitry Dean MD [address] [address] Scheduled Procedures Name Priority Associated Diagnoses Date/Ti or ENDOMYOCARDIAL BIOPSY 16884 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 Immunosuppression documented as of this encounter Visit Diagnoses [...] documented as of this encounter Care Teams Corporate Training Manager Relationship Specialty Start Date End Date Anuel Vargas DO PCP - General Internal Medicine 10/19/22 Justin Folwers MD [address] DIV IM BONE MARROW TRANSPLANT, [address] [address] Consulting Physician Medical Oncology 10/06/23 Erlin Chong MD [address] DIV IM BONE MARROW TRANSPLANT, [facility] [place] [address] Referring Physician Cardiology 10/06/23 Katerina Romero, singe winderPlastics Sheet Finishing Press Operator Cardiothoracic Surgery 04/03/25 05/20/25 Alexandra Powell, CECE [address] [id number] Plastics Sheet Finishing Press Operator Transplant 05/21/25 documented as of this encounter
--- OUTSIDE RECORDS SUMMARY | 2025-06-24 11:48 | XMS_ITS | Encounter Summary ---
Author Organization [facility] Address [address] [place] [address] Phone Care Team Providers Care Cloth Winder Name Role Phone Anuel Vargas Primary Care Provider [phone] Justin Flowers MD Unavailable Erlin Chong MD Unavailable Katerina Romero RN Unavailable Unavailable Alexandra Powell RN Unavailable [phone] Encounter Details Date Type Department Care Team (Late Contact Info) Description 10/28/2023 Telephone [facility] Oncology [facility] 7th [place] [address] [place] [address] Mavis Adair Social History Tobacco [...] on file Legal Sex Male 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 auris Comment:04/15/25: Negative C. [...] documented as of this encounter Care Teams Cloth Winder Relationship Specialty Start Date End Date Anuel Vargas DO PCP - General Internal Medicine 10/19/22 Justin Flowers MD [address] DIV IM BONE MARROW TRANSPLANT, [address] [place] [address] Consulting Physician Medical Oncology 10/06/23 Erlin Chong MD [address] DIV IM BONE MARROW TRANSPLANT, [address] [place] [address] Referring Physician Cardiology 10/06/23 Katerina Romero, title processorMorgue Technician Cardiothoracic Surgery 04/03/25 05/20/25 Alexandra Powell, RN [address] [facility] [address] [place] [address] Morgue Technician Transplant 05/21/25 documented as of this encounter
--- OUTSIDE RECORDS SUMMARY | 2025-06-24 11:48 | XMS_ITS | Encounter Summary ---
Author Name [facility] Organization [facility] [place] Address [address] [place] [address] Care Team Providers Care Tank Builder Name Role Phone OSWALDOKAROLINAE Primary Care Provider [...] Kennedy's Name Patient's Relationship to Policy Kennedy [facility] 2024 [facility] Nov 21, 2024 [facility] [id number] 12 Elzbieta ANN PATIENT Selected Encounter This section includes the information on record at OR for the Encounter. Date/Time Encounter Type Encounter Description Reason Provider Source Jan 09, 2025 08:00 AM OFFICE O/P EST HI 40 MIN CARDIOLOGY ICD-10-CM E85.81 Light chain (AL) ISAIAH Joy Encounter Template Text not used by [facility] Assessments - Encounter Diagnoses This section includes the primary and secondary diagnoses documented for the Encounter. Date/Time Primary/Secondary Diagnosis Diagnosis Name Provider Source Jan 09, 2025 08:22 AM PRIMARY Light chain (AL) amyloidosis ISAIAH VERGARA [facility] Jan 09, 2025 08:22 AM SECONDARY Chronic combined systolic and diastolic hrt fail ISAIAH VERGARA [facility] Jan 09, 2025 08:22 AM SECONDARY Other disorders of autonomic nervous system ISAIAH VERGARA [facility] Jan 09, 2025 08:22 AM SECONDARY Pulmonary fibrosis, unspecified ISAIAH VERGARA [facility] Plan of Treatment: Future Appointments (+ 6 months) and Future Tests (+/- 45 days) The Plan of Treatment section includes future care activities for the [facility] This section includes future appointments and future orders which are active, pending or scheduled. Future Appointments This section includes appointments that were scheduled to occur 6 months from the date of the Encounter, up to a maximum of 20 appointments. The data comes from all [facility] facilities. Appointment Date/Time Appointment Type Appointme nt Facility Name Jan 17, 2025 09:00 AM AMBULATORY - MEDICINE [facility] Jan 22, 2025 07:45 AM AMBULATORY - SURGERY [facility] Jan 25, 2025 07:30 AM AMBULATORY - NONE [facility] Jan 29, 2025 10:00 AM AMBULATORY - MEDICINE [facility] Feb 12, 2025 08:00 AM AMBULATORY - MEDICINE [facility] Feb 12, 2025 08:30 AM AMBULATORY - NONE [facility] Feb 26, 2025 07:15 AM AMBULATORY - NONE [facility] Mar 12, 2025 03:00 PM AMBULATORY - NONE [facility] March 27, 2025 08:30 AM AMBULATORY - MEDICINE [facility] Active, Pending, and Scheduled Orders This section includes a listing of several types of active, pending, and scheduled orders, including clinic medications orders, diagnostic test orders, procedure orders and consult orders; where the start date of the order is 45 days before the date of the Encounter or 45 days after the date of theEncounter. The data comes from all [place] treatment facilities. Test Date/Time Test Type Test Details Facility Name Jan 25, 2025 08:56 AM Consult Order [facility] Cons Communications Attendant's Choice [facility] Vital Signs: All taken on the encounter date This section contains inpatient and outpatient Vital Signs collected on the date of the Encounter. Date/Time Temperature Pulse Blood Pressure Respiratory Rate SP02 Pain Height Weight Body Mass Index Source Jan 09, 2025 07:40 AM 97.3 99 92/60 18 100 177.8 24 [facility] Social History: Smoking Status (Most current) and Tobacco Use (All prior to encounter date) This section includes the most current, and the historical, smoking and tobacco- related health factors from the OR facility where the Encounter took place. Current Smoking Status This section includes the most current smoking, or tobacco-related health factor, from the OR facility where the Encounter took place. Date/Time Current Smoking Status Ирина reyes Feb 10, 2024 06:16 PM ORYX ADMIT TOBACCO SCREEN NO [facility] Advance Directives: All historical and current Section Date Range: From patient's date of to the date document was created. This section includes ALL of a patient's completed or amended OR Advance and Rescinded Directives. The entries below indicate that a directive exists for the patient, but an actual copy is not included with this document. The data comes from all OR facilities. Date Advance Directives Provider Source Feb 16, 2024 ADVANCE DIRECTIVE GINA BRIGHT [facility] Encounter Notes: All associated encounter notes This section contains the clinical notes associated to the Encounter. Date/Time Encounter Note(s) Provider Source Jan 09, 2025 11:15 AM ADDENDUM: LOCAL TITLE: Addendum STANDARD TITLE: ADDENDUM DATE OF NOTE: JAN 09, 2025@11:15:05 ENTRY DATE: JAN 09, 2025@11:15:06 AUTHOR: HENNY MARLEY COSIGNER: URGENCY: STATUS: COMPLETED I called Mr. Ann. Reviewed testing for advanced therapies work-up. Additional labs, PFTs, CT c/a/p, RUQ u/s, carotids, ABIs, dental eval, and psychosocial eval have been ordered. Verbal consent for HIV antibody testing obtained from: Patient. Meghan, please contact patient for SW transplant eval, thank you! /es/ Henny Marley PA-C Cardiology Physician Mri Tech Signed: 01/09/2025 11:17 Receipt Acknowledged By: 01/10/2025 10:22 /luan/ Meghan Dean MEDICAL DIRECTOR MEDICAL DIRECTOR, Specialty Medicine SW --- Original Document --- 01/09/25 CARDIOLOGY HEART FAILURE NOTE [facility]: [facility] ADVANCED HEART FAILURE SERVICE: FOLLOW-UP VISIT NOTE PRINCIPAL AND SECONDARY DIAGNOSES: 1. Cardiac amyloid, AL / Lambda subtype - Followd by Aris Chong and Justin Schaffer - Started on Rhina-CyBorD (11/12) - Seen by [facility] nephrology for kidney involvement (proteinuria) - Seen by [facility] GI for likely GI involvement (Sammi). 2. NICM - [facility] with clean cors 3. Atrial fibrillation - On Eliquis A/C 4. HTN 5. Low back pain 6. Gout 7. Lung nodules / pleural thickening of unknown origin. CARE TEAM: 1. ADAMA CHACON INTERVAL HISTORY: We had the pleasure of seeing GOSIA ANN in the [facility] Advanced Heart Failure Program. As you know, GOSIA ANN is a 59 year old WHITE MALE with PMH notable for HFmrEF, biopsy proven cardiac amyloid (AL), with cardiac involvement proven on EMB. He is comanaged by the [facility] (Cards, GI, Heme-Onc, Renal). He follows with Justin Flowers, and has undergone treatment with Rhina-Cybor D, and has been tolerating this treatment well except for some nausea. TODAY: He notes some worsening of his lower extremity edema. He notes he's gained about 15 lbs in the past month. He thinks it may be some weight gain in addition to edema. He remains stable, and is on daratumumab, and tolerating this well. 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 He continues to walk but has been limited by the cold. He notes he is going to start going to the mall. He notes some ongoing weakness, lack of energy. No recent falls. He notes some dizziness when going from a seated to standing position, but this has been improving somewhat. Continues to endorse extensive orthopnea. Notes signifcant PND. - Colon was 2 years ago, 1 poly removed. F/U 5 years. CURRENT OUTPATIENT MEDICATIONS: Active Outpatient Medications (including Supplies): Active Outpatient Medications Status 1) DROXIDOPA 300MG ORAL CAP TAKE ONE CAPSULE BY MOUTH THREE ACTIVE TIMES A DAY Indication: FOR HYPOTENSION 2) NUTRITION SUPL ENSURE PLUS/STRWBERRY LIQ TAKE 1 CANFUL BY ACTIVE MOUTH TWICE A DAY Indication: FOR NUTRITION/DIETARY SUPPLEMENTATION Active Non-VA Medications Status [...] DAY AND 10 BY ACTIVE MOUTH NIGHTLY 11 Total Medications - Droxidopa 300 TID * - Acyclovir 400 TID * - Eliquis 5 BID * - Midodrine 10 TID * - [place] 25 * - Torsemide 20mg qDay - All cardiac medications were reconciled during the visit. PHYSICAL EXAM: Temperature: 97.3 F [36.3 C] (01/09/2025 07:40) BP: 92/60 (01/09/2025 07:40) Pulse: 99 (01/09/2025 07:40) Resp: 18 (01/09/2025 07:40) Weight:177.8 lb [80.65 kg] (01/09/2025 07:40) BMI: 24.2 GENERAL: Older thin WM, Sclera anicteric, PERRLA, MMM NECK: Carotids were brisk without bruits. CHEST/LUNGS: Clear to auscultation bilaterally with no rales or wheezes. Good respiratory effort and excursion. HEART: S1 S2, RRRR, moderate JVP at 90 degrees ABDOMEN: Soft, nontender, BS positive x 4 quadrants EXTREMITIES: No lower extremity edema. Pedal pulses intact bilaterally NEUROLOGICAL: Alert and oriented x 3. Normal motor strength. PSYCHIATRIC: Mood and affect appropriate DIAGNOSTIC DATA: ###. ECHOCARDIOGRAM: -The echocardiogram was reviewed, with findings of: 12/01/23 1. Moderate left ventricular hypertrophy. 2. Global systolic function: Overall left ventricular systolic function is moderate-severely impaired with an estimated ejection fraction of 30 - 35%. 3. The right ventricle is mildly enlarged. Mild right ventricular systolic dysfunction. 4. Severe diastolic dysfunction with markedly elevated left atrial filling pressure. 5. The left atrium is mildly enlarged. 6. Mild mitral regurgitation. 7. Qmob-zz-nzjvswsd tricuspid regurgitation. 8. Mild pulmonary hypertension (estimated PASP of 45 mm Hg). 9. Global longitudinal strain is abnormal at -6.9 %. A cherryon- top strain pattern with worse longitudinal strain in the mid and basal ventricle with relative sparing of the apex is seen in this study which could be seen in patient with cardiac amyloidosis. 10. Effusion: No pericardial effusion. 11. No prior study available for comparison ###. CARDIAC CATH: 2021: Clean coronaries ###. [facility] Sep 18, 2024 RIGHT HEART CATHETERIZATION Pressures [...] 2.3 Wood units Systemic vascular resistance: 1677 fxgsh-dlx-ek^-5 Oxygen Saturations: Arterial saturation: 95% Mixed venous [...] ICD: - N/A ###. Current NYHA Class: III ###. IMAGING: - cMRI ([facility], 07/2023) 1. Concentric LVH with mild-moderate global LV systolic dysfunction. LVEF 38%. 2. Upper limit of normal RV size, and mildly reduced global RV dysfunction< RVEF 39%. 3. LGE pattern suggests an infiltrative cardiomyopathy such as amyloidosis. No T1/T2 maps available. 4. Mild tricuspid regurgitation, no other significant valvular heart disease 5. Small pericardial effusion and pleural effusions. -PYP ([place], 2022) Impression: 1. The above described findings [...] Pulm plans to f/u with serial PFTs. ###. LABORATORIES: COMPREHENSIVE METABOLIC PANEL SODIUM 136 mEq/L 09/18/2024 06:55 POTASSIUM 4.4 mEq/L 09/18/2024 06:55 CHLORIDE 100 mEq/L 09/18/2024 06:55 UREA NITROGEN 23.7 mg/dL 09/18/2024 06:55 CREATININE 1.42 H mg/dL 09/18/2024 06:55 CALCIUM 10.0 mg/dL 09/18/2024 06:55 PROTEIN 6.3 g/dL 02/11/2024 06:00 ALBUMIN 3.8 g/dL 02/16/2024 20:00 ALKALINE PHOSPHATASE 343 H U/L 02/11/2024 06:00 ALT/SGPT 25 U/L 02/11/2024 06:00 AST/SGOT 27 U/L 02/11/2024 06:00 TOTAL BILIRUBIN 1.4 H mg/dL 02/11/2024 06:00 CARBON DIOXIDE 25 mEq/L 09/18/2024 06:55 GLUCOSE 109 H mg/dL 09/18/2024 06:55 EGFR (CKD-EPI 2020) 56.6 09/18/2024 06:55 COMPLETE BLOOD COUNT WBC 7.7 10*3/uL 09/18/2024 06:55 RBC 5.21 10*6/uL 09/18/2024 06:55 HGB 15.3 g/dL 09/18/2024 06:55 HCT 47.3 % 09/18/2024 06:55 MCV 90.8 fL 09/18/2024 06:55 MCH 29.4 pg 09/18/2024 06:55 MCHC 32.3 L g/dL 09/18/2024 06:55 RDW 13.2 % 09/18/2024 06:55 PLT 241 10*3/uL 09/18/2024 06:55 COAGULATION STUDIES INR VALUE 1.9 INR 09/18/2024 06:55 PROTIME 20.6 H sec 09/18/2024 06:55 No PTT EO data found HGA1C: No HEMOGLOBIN A1C EO data found LIPIDS TRIGLYCERIDE 66 mg/dL 05/03/2023 11:07 CHOLESTEROL 166 mg/dL 05/03/2023 11:07 HDL(New) 37 L mg/dL 05/03/2023 11:07 CALCULATED LDL 116 mg/dL 05/03/2023 11:07 CARDIAC BIOMARKERS BNP: BRAIN NATRIURETIC PEPTIDE 1089.0 H pg/mL 02/10/2024 18:35 Trop: The OBJECT TROPONIN I EO was NOT found...Contact IRM. IRON STUDIES FERRITIN: FERRITIN 242.02 ng/mL 02/11/2024 20:00 TSAT: The OBJECT TRANSFERRIN EO was NOT found...Contact IRM. ASSESSMENT AND PLAN: In summary, GOSIA ANN is a 59 MALE with a history of HFmrEF who presents for advanced heart failure, cardiac amyloid. He is followed by the [facility], and is currently undergoing chemotherapy. Overall, the patient is endorsing NYHA class IIIb symptoms and appears euvolemic on exam today. BARRIERS TO CARE AND CANDIDACY FOR ADVANCED THERAPIES: - No significant barriers identified - He remains in remission and on maintenance rhina PLAN: #. AL LAMBDA Cardiac amyloid - Follows with Justin Oglesby - Remains on [place] 25, Empag 12.5 - Increase torsemide to 20/10mg qDay (he had not been taking the 10mg) - Continue midodrine 10 TID - Droxidopa 300 mg TID - Defer to [facility] re: chemo and further management. He appears to be on monthly maintenance daratumumab - Repeat TTE today. #. End-stage NICM - CI of 1.6 [...] definitive decision from our multidisciplinary group. - WILMAN Hazel, will place orders for transplant evaluation. #. Atrial fibrillation - S/P DCCV - He remains in NSR - Continue Eliquis (confirmed patient is taking) #. CKD - Likely with proteinuria - Followed by Renal at [facility] #. HLD - Uninterested in statin #. DISPO - RTC in 4 months Thank you for allowing us to participate in [facility] [place] [facility]. Please do not hesitate to call the HF team with any questions or concerns. /luan/ ABRIL VERGARA MD PHD STAFF PHYSICIAN AND CHIEF OF HEART FAILURE Signed: 01/09/2025 08:21 Receipt Acknowledged By: 01/09/2025 10:51 /luan/ Henny Marley PA-C Cardiology Physician Mri Tech HENNY MARLEY [facility] Jan 09, 2025 05:41 AM CARDIOLOGY NOTE: LOCAL TITLE: CARDIOLOGY HEART FAILURE NOTE ST[facility] STANDARD TITLE: CARDIOLOGY NOTE DATE OF NOTE: JAN 09, 2025@05:41 ENTRY DATE: JAN 09, 2025@05:42:03 AUTHOR: ABRIL VERGARA EXP COSIGNER: URGENCY: STATUS: COMPLETED CARDIOLOGY HEART FAILURE NOTE ST Has ADDENDA [facility] ADVANCED HEART FAILURE SERVICE: FOLLOW-UP VISIT NOTE PRINCIPAL AND SECONDARY DIAGNOSES: 1. Cardiac amyloid, AL / Lambda subtype - Followd by Aris Chong and Justin Schaffer - Started on Rhina-CyBorD (11/12) - Seen by [facility] nephrology for kidney involvement (proteinuria) - Seen by [facility] GI for likely GI involvement (Sammi). 2. NICM - C with clean cors 3. Atrial fibrillation - On Eliquis A/C 4. HTN 5. Low back pain 6. Gout 7. Lung nodules / pleural thickening of unknown origin. CARE TEAM: 1. KAROLINA CHACONE B INTERVAL HISTORY: We had the pleasure of seeing GOSIA ANN in the [facility] Advanced Heart Failure Program. As you know, GOSIA ANN is a 59 year old WHITE MALE with PMH notable for HFmrEF, biopsy proven cardiac amyloid (AL), with cardiac involvement proven on EMB. He is comanaged by the [facility] (Cards, GI, Heme-Onc, Renal). He follows with Justin Flowers, and has undergone treatment with Rhina-Cybor D, and has been tolerating this treatment well except for some nausea. TODAY: He notes some worsening of his lower extremity edema. He notes he's gained about 15 lbs in the past month. He thinks it may be some weight gain in addition to edema. He remains stable, and is on daratumumab, and tolerating this well. 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 He continues to walk but has been limited by the cold. He notes he is going to start going to the mall. He notes some ongoing weakness, lack of energy. No recent falls. He notes some dizziness when going from a seated to standing position, but this has been improving somewhat. Continues to endorse extensive orthopnea. Notes signifcant PND. - Colon was 2 years ago, 1 poly removed. F/U 5 years. CURRENT OUTPATIENT MEDICATIONS: Active Outpatient Medications (including Supplies): Active Outpatient Medications Status 1) DROXIDOPA 300MG ORAL CAP TAKE ONE CAPSULE BY MOUTH THREE ACTIVE TIMES A DAY Indication: FOR HYPOTENSION 2) NUTRITION SUPL ENSURE PLUS/STRWBERRY LIQ TAKE 1 CANFUL BY ACTIVE MOUTH TWICE A DAY Indication: FOR NUTRITION/DIETARY SUPPLEMENTATION Active Non-VA Medications Status [...] DAY AND 10 BY ACTIVE MOUTH NIGHTLY 11 Total Medications - Droxidopa 300 TID * - Acyclovir 400 TID * - Eliquis 5 BID * - Midodrine 10 TID * - Robin 25 * - Torsemide 20mg qDay - All cardiac medications were reconciled during the visit. PHYSICAL EXAM: Temperature: 97.3 F [36.3 C] (01/09/2025 07:40) BP: 92/60 (01/09/2025 07:40) Pulse: 99 (01/09/2025 07:40) Resp: 18 (01/09/2025 07:40) Weight:177.8 lb [80.65 kg] (01/09/2025 07:40) BMI: 24.2 GENERAL: Older thin WM, Sclera anicteric, PERRLA, MMM NECK: Carotids were brisk without bruits. CHEST/LUNGS: Clear to auscultation bilaterally with no rales or wheezes. Good respiratory effort and excursion. HEART: S1 S2, RRRR, moderate JVP at 90 degrees ABDOMEN: Soft, nontender, BS positive x 4 quadrants EXTREMITIES: No lower extremity edema. Pedal pulses intact bilaterally NEUROLOGICAL: Alert and oriented x 3. Normal motor strength. PSYCHIATRIC: Mood and affect appropriate DIAGNOSTIC DATA: ###. ECHOCARDIOGRAM: -The echocardiogram was reviewed, with findings of: 12/01/23 1. Moderate left ventricular hypertrophy. 2. Global systolic function: Overall left ventricular systolic function is moderate-severely impaired with an estimated ejection fraction of 30 - 35%. 3. The right ventricle is mildly enlarged. Mild right ventricular systolic dysfunction. 4. Severe diastolic dysfunction with markedly elevated left atrial filling pressure. 5. The left atrium is mildly enlarged. 6. Mild mitral regurgitation. 7. Gmby-cu-pvllicco tricuspid regurgitation. 8. Mild pulmonary hypertension (estimated PASP of 45 mm Hg). 9. Global longitudinal strain is abnormal at -6.9 %. A cherryon- top strain pattern with worse longitudinal strain in the mid and basal ventricle with relative sparing of the apex is seen in this study which could be seen in patient with cardiac amyloidosis. 10. Effusion: No pericardial effusion. 11. No prior study available for comparison ###. CARDIAC CATH: - 2021: Clean coronaries ###. [facility] Sep 18, 2024 RIGHT HEART CATHETERIZATION Pressures [...] 2.3 Wood units Systemic vascular resistance: 1677 bdoxd-glw-sh^-5 Oxygen Saturations: Arterial saturation: 95% Mixed venous [...] ICD: - N/A ###. Current NYHA Class: III ###. IMAGING: - cMRI ([facility], 07/2023) 1. Concentric LVH with mild-moderate global LV systolic dysfunction. LVEF 38%. 2. Upper limit of normal RV size, and mildly reduced global RV dysfunction< RVEF 39%. 3. LGE pattern suggests an infiltrative cardiomyopathy such as amyloidosis. No T1/T2 maps available. 4. Mild tricuspid regurgitation, no other significant valvular heart disease 5. Small pericardial effusion and pleural effusions. -PYP ([place]2022) Impression: 1. The above described findings are [...] Pulm plans to f/u with serial PFTs. ###. LABORATORIES: COMPREHENSIVE METABOLIC PANEL SODIUM 136 mEq/L 09/18/2024 06:55 POTASSIUM 4.4 mEq/L 09/18/2024 06:55 CHLORIDE 100 mEq/L 09/18/2024 06:55 UREA NITROGEN 23.7 mg/dL 09/18/2024 06:55 CREATININE 1.42 H mg/dL 09/18/2024 06:55 CALCIUM 10.0 mg/dL 09/18/2024 06:55 PROTEIN 6.3 g/dL 02/11/2024 06:00 ALBUMIN 3.8 g/dL 02/16/2024 20:00 ALKALINE PHOSPHATASE 343 H U/L 02/11/2024 06:00 ALT/SGPT 25 U/L 02/11/2024 06:00 AST/SGOT 27 U/L 02/11/2024 06:00 TOTAL BILIRUBIN 1.4 H mg/dL 02/11/2024 06:00 CARBON DIOXIDE 25 mEq/L 09/18/2024 06:55 GLUCOSE 109 H mg/dL 09/18/2024 06:55 EGFR (CKD-EPI 2020) 56.6 09/18/2024 06:55 COMPLETE BLOOD COUNT WBC 7.7 10*3/uL 09/18/2024 06:55 RBC 5.21 10*6/uL 09/18/2024 06:55 HGB 15.3 g/dL 09/18/2024 06:55 HCT 47.3 % 09/18/2024 06:55 MCV 90.8 fL 09/18/2024 06:55 MCH 29.4 pg 09/18/2024 06:55 MCHC 32.3 L g/dL 09/18/2024 06:55 RDW 13.2 % 09/18/2024 06:55 PLT 241 10*3/uL 09/18/2024 06:55 COAGULATION STUDIES INR VALUE 1.9 INR 09/18/2024 06:55 PROTIME 20.6 H sec 09/18/2024 06:55 No PTT EO data found HGA1C: No HEMOGLOBIN A1C EO data found LIPIDS TRIGLYCERIDE 66 mg/dL 05/03/2023 11:07 CHOLESTEROL 166 mg/dL 05/03/2023 11:07 HDL(New) 37 L mg/dL 05/03/2023 11:07 CALCULATED LDL 116 mg/dL 05/03/2023 11:07 CARDIAC BIOMARKERS BNP: BRAIN NATRIURETIC PEPTIDE 1089.0 H pg/mL 02/10/2024 18:35 Trop: The OBJECT TROPONIN I EO was NOT found...Contact IRM. IRON STUDIES FERRITIN: FERRITIN 242.02 ng/mL 02/11/2024 20:00 TSAT: The OBJECT TRANSFERRIN EO was NOT found...Contact IRM. ASSESSMENT AND PLAN: In summary, GOSIA ANN is a 59 MALE with a history of HFmrEF who presents for advanced heart failure, cardiac amyloid. He is followed by the [facility], and is currently undergoing chemotherapy. Overall, the patient is endorsing NYHA class IIIb symptoms and appears euvolemic on exam today. BARRIERS TO CARE AND CANDIDACY FOR ADVANCED THERAPIES: - No significant barriers identified - He remains in remission and on maintenance rhina PLAN: #. AL LAMBDA Cardiac amyloid - Follows with Justin Oglesby - Remains on [place] 25, Empag 12.5 - Increase torsemide to 20/10mg qDay (he had not been taking the 10mg) - Continue midodrine 10 TID - Droxidopa 300 mg TID - Defer to [facility] re: chemo and further management. He appears to be on monthly maintenance daratumumab - Repeat TTE today. #. End-stage NICM - CI of 1.6 [...] definitive decision from our multidisciplinary group. - WILMAN Hazel, will place orders for transplant evaluation. #. Atrial fibrillation - S/P DCCV - He remains in NSR - Continue Eliquis (confirmed patient is taking) #. CKD - Likely with proteinuria - Followed by Renal at [facility] #. HLD - Uninterested in statin #. DISPO - RTC in 4 months Thank you for allowing us to participate in this [place] [facility]. Please do not hesitate to call the HF team with any questions or concerns. /kimberly VERGARA MD PHD STAFF PHYSICIAN AND CHIEF OF HEART FAILURE Signed: 01/09/2025 08:21 Receipt Acknowledged By: 01/09/2025 10:51 /luan/ Henny Marley PA-C Cardiology Physician Mri Tech 01/09/2025 ADDENDUM STATUS: COMPLETED I called Mr. Ann. Reviewed testing for advanced therapies work-up. Additional labs, PFTs, CT c/a/p, RUQ u/s, carotids, ABIs, dental eval, and psychosocial eval have been ordered. Verbal consent for HIV antibody testing obtained from: Patient. Meghan, please contact patient for SW transplant eval, thank you! /kimberly Marley PA-C Cardiology Physician Mri Tech Signed: 01/09/2025 11:17 Receipt Acknowledged By: * AWAITING SIGNATURE * MEGHAN DEAN JONATHAN D [facility]
--- OUTSIDE RECORDS SUMMARY | 2025-06-24 11:48 | XMS_ITS | Encounter Summary ---
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 Immunosuppression Procedures Transthoracic Echo (TTE) Complete W Doppler/CF Carlos Fairbanks MD [address] [address] Phone: tel: fax: [facility] Referral ID Status Reason Start Date Expiration Date V isits Requested Visits Authorized [id number] Pending Review 06/21/2025 07/21/2026 1 1 Encounter Details Date Type Department Care Team (Late st Contact Info) Description 06/17/2025 Telephone [facility] Heart [address] [facility] [id number] [place] [address] Mono Niño, CECE Social History Tobacco Use Types Packs/Day Years Used Date Smoking Tobacco: Never Passive Smoke Exposure: Never Smokeless Tobacco: Never [facility] Utilities Answer Date Recorded In the past 12 months has e electric, gas, oil, or water company threatened [...] often do you attend chur ch or moravian services? Never 04/10/2025 Do you belong to any clubs o r organizations such as zoroastrianism groups, unions, fraternal or athletic groups, or [...] time in the past 12 [facility], were you homeless or living in a [facility] (including now)? No 04/10/2025 Personal Safety Answer Date Recorded Have you ever been in or are you currently in a harmful physical or emotional relationship or is someone making you feel afraid or unsafe? Denies 06/12/2025 Sex and Gender Information Value Date Recorded Sex Assigned at Not on file Legal Sex Male 12:25 PM BUNDLE PERSON Gender Identity Male 05/28/2021 8:44 PM CDT Sexual Orientation Straight 10/19/2022 9: 47 AM BUNDLE PERSON documented as of this encounter Ordered Prescriptions Prescription Sig Dispense Quantity Refills Last Filled Start Date End Date tacrolimus 1 mg immediate-release capsuleIndications :immunosuppression Take 1 capsule (1 mg total) by mouth every morning AND 1 capsule (1 mg total) nightly. 180 capsule 3 06/21/2025 documented in this encounter Miscellaneous Notes * Telephone Encounter - Mono Niño RN - 06/17/2025 11:03 PM CDT 4-week visit s/p heart transplant- Clinic date 06/17/2025 Patient seen at [facility] by Dr. Fairbanks for biopsy, echo, [...] (blue card) and medication list reconciled. Results: Echo: EF 63%, moderate RV hypokinesis, mild TR. Biopsy: 0R Labs: K: 3.8 Cr: 2.33 (1.88) WBC: 8.74 H/H: 7.4/23.7 Tacro: 13.3 (7.8) on 12/22 Post Clinic Changes: Decrease Tacrolimus to 1 mg in the AM and 1 mg in the PM (prior dose 12/22) - high Tacrolimus trough,rising creatinine. RN Follow Up[facility] Next appointment: 07/01/25 @ 0900 OV with biopsy, echo, and labs --- 06/19/25 Clinic results reviewed with Dr. Fairbanks. See Post Clinic Changes. 06/21/2025 3:45 PM called patient. No answer - call went straight to voicemail. Left voicemail with callback information. 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 ([facility]) Immunosuppression Expected: 07/01/2025 (Approximate), Expires: 06/21/2026 Tacrolimus level trough Lab Routine 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 ([facility]) Immunosuppression Expected: 07/01/2025 (Approximate), Expires: 06/21/2026 CBC with auto differential Lab Routine 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 ([facility]) Immunosuppression Expected: 07/01/2025 (Approximate), Expires: 06/21/2026 Basic metabolic panel Lab Routine 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 ([facility]) Immunosuppression Expected: 07/01/2025 (Approximate), Expires: 06/21/2026 Scheduled Procedures Name Priority Associated Diagnoses Date/Ti mn ENDOMYOCARDIAL BIOPSY 25689 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 Specials protocols are implemented when working with a patient testing positive for C. Auris. 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 05/07/2025 05/07/2025 documented as of this encounter Care Teams Die Hardener Relationship Specialty Start Date End Date Anuel Vargas DO PCP - General Internal Medicine 10/19/22 Justin Flowers MD [address] DIV IM BONE MARROW TRANSPLANT, [address] [place] [address] Consulting Physician Medical Oncology 10/06/23 Erlin Chong MD [address] DIV IM BONE MARROW TRANSPLANT, [address] [place] [address] Referring Physician Cardiology 10/06/23 Alexandra Powell, RN [address] [facility] [address] [place] [address] Clinical Application Manager Transplant 05/21/25 documented as of this encounter
--- OUTSIDE RECORDS SUMMARY | 2025-06-24 11:48 | XMS_ITS | Clinical Summary ---
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
--- OUTSIDE RECORDS SUMMARY | 2025-06-24 11:48 | XMS_ITS | Encounter Summary ---
Author Name [facility] [place] [facility] [place] Address [address] [place] [address] Care Team Providers Care Child Care Education Coordinator Name Role Phone OSWALDO ADAMA Primary Care Provider Unavailabl e Insurance Providers: [...] Kennedy's Name Patient's Relationship to Policy Kennedy [facility] 2024 [facility] Nov 21, 2024 [facility] [id number] 12 Elzbieta ZUNIGA PATIENT Selected Encounter This section includes the information on record at [place] for the Encounter. Date/Time Encounter Type Encounter Description Reason Provider Source Jun 07, 2025 10:30 AM Outpatient Encounter COMMUNITY CARE CONSULT EVELYNE BLANCAS Encounter Template Text not used by [place] Plan of Treatment: Future Appointments (+ 6 months) and Future Tests (+/- 45 days) The Plan of Treatment section includes future care activities for the patient from all [facility] treatment[facility]. This section includes future appointments and future orders which are active, pending or scheduled. Future Appointments This section includes appointments that were scheduled to occur 6 months from the date of the Encounter, up to a maximum of 20 appointments. The data comes from all [facility]. Appointment Date/Time Appointment Type Appointme nt Facility Name Jun 13, 2025 08:00 AM AMBULATORY - NONE [facility] Jun 17, 2025 12:00 PM AMBULATORY - NONE [facility] Jul 24, 2025 09:00 AM AMBULATORY - MEDICINE [facility] Aug 14, 2025 02:40 PM AMBULATORY - NONE [facility] Active, Pending, and Scheduled Orders This section includes a listing of several types of active, pending, and scheduled orders, including clinic medications orders, diagnostic test orders, procedure orders and consult orders; where the start date of the order is 45 days before the date of the Encounter or 45 days after the date of theEncounter. The data comes from all [facility]. Test Date/Time Test Type Test Details Facility Name Jun 06, 2025 09:09 PM Consult Order [facility] Cons Paper Machine Backtender's Choice [facility] Social History: Smoking Status (Most current) and Tobacco Use (All prior to encounter date) This section includes the most current, and the historical, smoking and tobacco- related health factors from the [place] facility where the Encounter took place. Current Smoking Status This section includes the most current smoking, or tobacco-related health factor, from the [place] facility where the Encounter took place. Date/Time Current Smoking Status Comment Khurram ity Jan 17, 2025 09:00 AM [place]-TOBACCO NEVER U SED CIGARETTES [facility] Tobacco Use History This section includes a history of the smoking, or tobacco-related health factors, that were collected on or before the date of the Encounter. The data comes from the [place] facility where the Encounter took place. Date/Time Smoking Status/Tobacco Use Comment F acility Jan 17, 2025 09:00 AM [place]-TOBACCO NEVER U SED OTHER TYPE [facility] Feb 10, 2024 06:16 PM ORYX ADMIT TOBACCO SCREEN NO [facility] Advance Directives: All historical and current Section Date Range: From patient's date of to the date document was created. This section includes ALL of a patient's completed or amended [place] Advance and Rescinded Directives. The entries below indicate that a directive exists for the patient, but an actual copy is not included with this document. The data comes from all [place] facilities. Date Advance Directives Provider Source Feb 16, 2024 ADVANCE DIRECTIVE GINA BR[facility] Encounter Notes: All associated encounter notes This section contains the clinical notes associated to the Encounter. Date/Time Encounter Note(s) Provider Source Jun 22, 2025 06:22 AM ADDENDUM: LOCAL TITLE: Addendum STANDARD TITLE: ADDENDUM DATE OF NOTE: JUN 22, 2025@06:22:50 ENTRY DATE: JUN 22, 2025@06:22:51 AUTHOR: EVELYNE BLANCAS COSIGNER: URGENCY: STATUS: COMPLETED Care Coordination Follow Up Level of Care Coordination Complex/Chronic Care Coordination was determined from: Chart Review Services: Moderate Care Coordination Services Case Management, if appropriate Direct communications with interdisciplinary team Plan: According to email received from [facility] Post Heart Transplant Coord (Derik), had a fall one day after discharge. He is using a walker for mobility and stability. Dr. Fairbanks request home PT. has [facility] for snf and PT. Alerting [facility] RN for assistance to make sure authorized care is being rendered. Copy of 06/18/25 notes sent to DARCY. Plan for to have cath/echo 07/01/25. /luan/ EVELYNE ISBELL RN REGISTERED NURSE Signed: 06/22/2025 06:27 Receipt Acknowledged By: 06/24/2025 08:16 /luan/ FRANCINE PÉREZ, RN REGISTERED NURSE --- Original Document --- 06/07/25 COMMUNITY CARE-CARE COORDINATION PLAN NOTE 657 STL: Community Care Consult: Post Transplant Care Consult No: [id number] [facility] Referral #: pending DOA approval Chief Complaint: heart transplant 7/1/25 Patient Admitted? No Level of Care Coordination Complex/Chronic Care Coordination was determined from: Chart Review Facility Community Care Office Contact Care Coordination Point of Contact: Evelyne Blancas Services: Moderate Care Coordination Services Case Management, if appropriate Direct communications with interdisciplinary team Plan: [facility] Heart Transplant Team POC: Ron Ibarra Sachi P: [phone] [place] still inpt at [facility] - admitted 04/08/25; dc pending. [facility] Longterm Consult submitted for lab testing/wound care. According to [facility], scheduled for ECHO,OV,BIOPSY,LABS 06/17/25 1200 /luna/ EVELYNE BLANCAS MSN RN REGISTERED NURSE Signed: 06/07/2025 10:36 06/18/2025 ADDENDUM STATUS: COMPLETED Care Coordination Follow Up Level of Care Coordination Complex/Chronic Care Coordination was determined from: Chart Review Services: Moderate Care Coordination Services Case Management, if appropriate Direct communications with interdisciplinary team Plan: According to [facility], [place] seen 06/17/25 for post heart transplant visit. Post Transplant Immunosuppression and allograft surveillance: Tacrolimus dose maintain current dose pending trough level 2 mg AM 1 mg PM Mycophenolate dose maintain current dose 1000 mg BID Prednisone dose: lower to 15 mg/day. Next visit will be in two weeks. At that visit we will perform an office visit, monitor drug levels, perform a transthoracic echocardiogram, and perform an endomyocardial biopsy. Additional testing to be performed: Allograft Vasculopathy prevention statin, aspirin deferred due to falls/bruising Infectious Disease Prophylaxis: CMV/HSV prophylaxis: continue current valgancyclovir. Pneumocystis prophylaxis alternative therapy Dapsone (Bactrim caused hyperkalemia). Antifungal prophylaxis: no longer required. Hypertension Management: We will continue current antihypertensive therapy Diabetes/Hyperglycemia Management: We will continue current diabetes therapy Falls/instability: Will arrange in-home PT/home care through [place] Volume overload: Switching bumex to torsemide 20 mg/day per patient preference AL Amyloidosis s/p partial therapy - Defer further AL therapy to Dr Sabino Carlin Hepatitis C + donor -> seroconversion: Mavyret antiviral therapy. CKD Stage 3 with elevated Cr - Enforce leg elevation, Moderate diuretic dose Anemia - Likely chronic blood loss, iron deficiency - repeat iron panel. Copy of notes sent to [facility]. /luan/ EVELYNE BLANCAS MSN RN REGISTERED NURSE Signed: 06/18/2025 13:18 EVELYNE BLANCAS [facility] Jun 07, 2025 10:30 AM NONVA NOTE: LOCAL TITLE: COMMUNITY CARE-CARE COORDINATION PLAN NOTE 657 STL STANDARD TITLE: NONVA NOTE DATE OF NOTE: JUN 07, 2025@10:30 ENTRY DATE: JUN 07, 2025@10:30:51 AUTHOR: EVELYNE BLANCAS EXP COSIGNER: URGENCY: STATUS: COMPLETED COMMUNITY CARE-CARE COORDINATION PLAN NOTE 657 STL Has ADDENDA Community Care Consult: Post Transplant Care Consult No: [id number] HS Referral #: pending DOA approval Chief Complaint: heart transplant 05/21/25 Patient Admitted? No Level of Care Coordination Complex/Chronic Care Coordination was determined from: Chart Review Facility Community Care Office Contact Care Coordination Point of Contact: Evelyne Blancas Services: Moderate Care Coordination Services Case Management, if appropriate Direct communications with interdisciplinary team Plan: [facility] Heart Transplant Team POC: Ron Ibarra Coord P: [phone] [place] still inpt at [facility] - admitted 04/08/25; dc pending. [facility] Longterm Consult submitted for lab testing/wound care. According to [facility], [place] scheduled for ECHO,OV,BIOPSY,LABS 06/17/25 1200 /luan/ EVELYNE BLANCAS MSN RN REGISTERED NURSE Signed: 06/07/2025 10:36 06/18/2025 ADDENDUM STATUS: COMPLETED Care Coordination Follow Up Level of Care Coordination Complex/Chronic Care Coordination was determined from: Chart Review Services: Moderate Care Coordination Services Case Management, if appropriate Direct communications with interdisciplinary team Plan: According to [facility], seen 06/17/25 for post heart transplant visit. Post Transplant Immunosuppression and allograft surveillance: Tacrolimus dose maintain current dose pending trough level 2 mg AM 1 mg PM Mycophenolate dose maintain current dose 1000 mg BID Prednisone dose: lower to 15 mg/day. Next visit will be in two weeks. At that visit we will perform an office visit, monitor drug levels, perform a transthoracic echocardiogram, and perform an endomyocardial biopsy. Additional testing to be performed: Allograft Vasculopathy prevention statin, aspirin deferred due to falls/bruising Infectious Disease Prophylaxis: CMV/HSV prophylaxis: continue current valgancyclovir. Pneumocystis prophylaxis alternative therapy Dapsone (Bactrim caused hyperkalemia). Antifungal prophylaxis: no longer required. Hypertension Management: We will continue current antihypertensive therapy Diabetes/Hyperglycemia Management: We will continue current diabetes therapy Falls/instability: Will arrange in-home PT/home care through [place] Volume overload: Switching bumex to torsemide 20 mg/day per patient preference AL Amyloidosis s/p partial therapy - Defer further AL therapy to Dr Sabino Carlin Hepatitis C + donor -> seroconversion: Mavyret antiviral therapy. CKD Stage 3 with elevated Cr - Enforce leg elevation, Moderate diuretic dose Anemia - Likely chronic blood loss, iron deficiency - repeat iron panel. Copy of notes sent to [facility]. /luan/ EVELYNE ISBELL RN REGISTERED NURSE Signed: 06/18/2025 13:18 06/22/2025 ADDENDUM STATUS: COMPLETED Care Coordination Follow Up Level of Care Coordination Complex/Chronic Care Coordination was determined from: Chart Review Services: Moderate Care Coordination Services Case Management, if appropriate Direct communications with interdisciplinary team Plan: According to email received from [facility] Post Heart Transplant Coord (Derik), [place] had a fall one day after discharge. He is using a walker for mobility and stability. Dr. Fairbanks request home PT. has [facility] for snf and PT. Alerting [facility] RN for assistance to make sure authorized care is being rendered. Copy of 06/18/25 notes sent to [facility]. Plan for to have cath/echo 07/01/25. /luan/ EVELYNE ISBELL RN REGISTERED NURSE Signed: 06/22/2025 06:27 Receipt Acknowledged By: * AWAITING SIGNATURE * TERRELL ONEILL TANIKA L [facility]
--- OUTSIDE RECORDS SUMMARY | 2025-06-24 11:48 | XMS_ITS | Encounter Summary ---
Author Name [facility] [place] [facility] [place] Address [address] [place] [address] Care Team Providers Care University Dean Name Role Phone OSWALDO ADAMA Primary Care [...] Kennedy's Name Patient's Relationship to Policy Kennedy [facility] 2024 [facility] Nov 21, 2024 [facility] [id number] 12 Elzbieta ANN PATIENT Selected Encounter This section includes the information on record at [place] for the Encounter. Date/Time Encounter Type Encounter Description Reason Pro vider Source Sep 18, 2024 07:[address] CATHETER IN VEIN CARDIAC CATHETERIZATION ICD-10-CM I50.42 Chronic combined systolic and diastolic hrt fail EMILE VERGARA IHBreana Encounter Template Text not used by [facility] Assessments - Encounter Diagnoses This section includes the primary and secondary diagnoses documented for the Encounter. Date/Time Primary/Secondary Diagnosis Diagnosis Name Provider Source Sep 19, 2024 11:11 AM SECONDARY Chronic combined systolic and diastolic hrt fail ABRIL VERGARA [facility] Plan of Treatment: Future Appointments (+ 6 months) and Future Tests (+/- 45 days) The Plan of Treatment section includes future care activities for the patient from all [place] [facility]. This section includes future appointments and future orders which are active, pending or scheduled. Future Appointments This section includes appointments that were scheduled to occur 6 months from the date of the Encounter, up to a maximum of 20 appointments. The data comes from all [facility]. Appointment Date/Time Appointment Type Appointme nt Facility Name Oct 27, 2024 12:11 PM AMBULATORY - MEDICINE [facility] Jan 09, 2025 08:00 AM AMBULATORY - MEDICINE [facility] Jan 09, 2025 08:30 AM AMBULATORY - MEDICINE [facility] Jan 17, 2025 09:00 AM AMBULATORY - MEDICINE [facility] Jan 22, 2025 07:45 AM AMBULATORY - SURGERY [facility] Jan 25, 2025 07:30 AM AMBULATORY - NONE [facility] Jan 29, 2025 10:00 AM AMBULATORY - MEDICINE [facility] Feb 12, 2025 08:00 AM AMBULATORY - MEDICINE [facility] Feb 12, 2025 08:30 AM AMBULATORY - NONE [facility] Feb 26, 2025 07:15 AM AMBULATORY - NONE [facility] Mar 12, 2025 03:00 PM AMBULATORY - NONE [facility] Active, Pending, and Scheduled Orders This section includes a listing of several types of active, pending, and scheduled orders, including clinic medications orders, diagnostic test orders, procedure orders and consult orders; where the start date of the order is 45 days before the date of the Encounter or 45 days after the date of theEncounter. The data comes from all [facility]. Test Date/Time Test Type Test Details Facility Name Sep 18, 2024 12:00 AM Laboratory - Blood Bank Order TYPE & SCREEN - LAB BLOOD SP [facility] Sep 26, 2024 12:00 AM Laboratory - Chemi stry Order BASIC METABOLIC PANEL GREEN LI/HEP BLD/PLAS PLASMA SP [facility] Lab Results: +/- 30 days of the [...] Type Comment Sep 18, 2024 08:[address] [facility] POC AVOX PANEL BLOOD Specimen Type: BLOOD Comment: Test Performed by: [id number] Meter #: [id number] Ordering Provider: ADAMA CHACON Report Released Date/Time: Sep 18, 2024 09:03 AM Reporting Lab: [address] [address] Performing Lab: [address] [address] POC AVOX O2HB 75.8 L 92-100 POC AVOX THB 14.7 g/dL 13.1-16.8 Sep 18, 2024 08:[address] [facility] POC AVOX PANEL BLOOD Specimen Type: BLOOD Comment: Test Performed by: [id number] Meter #: [id number] Ordering Provider: ADAMA CHACON Report Released Date/Time: Sep 18, 2024 09:00 AM Reporting Lab: [address] [address] Performing Lab: [address] [address] POC AVOX O2HB 69.7 L 92-100 POC AVOX THB 14.9 g/dL 13.1-16.8 Sep 18, 2024 08:[address] [facility] POC AVOX PANEL BLOOD Specimen Type: BLOOD Comment: Test Performed by: [id number] Meter #: [id number] Ordering Provider: ADAMA CHAOCN Report Released Date/Time: Sep 18, 2024 08:59 AM Reporting Lab: [address] [address] Performing Lab: [facility] [address] [facility] [address] [address] POC AVOX O2HB 62.7 L 92-100 POC AVOX THB 14.9 g/dL 13.1-16.8 Sep 18, 2024 08:[address] [facility] POC AVOX PANEL BLOOD Specimen Type: BLOOD Comment: Test Performed by: [id number] Meter #: [id number] Ordering Provider: ADAMA CHACON Report Released Date/Time: Sep 18, 2024 08:58 AM Reporting Lab: [address] [address] Performing Lab: [address] [address] POC AVOX O2HB 61.3 L 92-100 POC AVOX THB 15.2 g/dL 13.1-16.8 Sep 18, 2024 06:[address] [facility] PT/INR NEW (STL-MA) PLASMA Specimen Type: PLAS MA No comment entered. Ordering Provider: BARBI PACE Report Released Date/Time: Aug 23, 2024 02:43 PM Reporting Lab: [address] [address] Performing Lab: [address] [address] PROTIME 20.6 s H 9.4-12.5 INR VALUE 1.9 {INR} Sep 18, 2024 06:[address] [facility] BASIC METABOLIC PANEL PLASMA Specimen Type: PL ASMA Comment: No hemolysis noted. Ordering Provider: BARBI PACE Report Released Date/Time: Aug 23, 2024 02:43 PM Reporting Lab: [address] [address] Performing Lab: [address] [address] CREATININE 1.42 mg/dL H 0.7-1.3 UREA NITROGEN 23.7 mg/dL 9.0-25.0 GLUCOSE 109 mg/dL H 72-99 SODIUM 136 meq/L 136-145 POTASSIUM 4.4 meq/L 3.5-5 CHLORIDE 100 meq/L 98-107 CARBON DIOXIDE 25 meq/L 22-31 CALCIUM 10.0 mg/dL 8.4-10.4 EGFR (CKD-EPI 2020) 56.6 >60 Sep 18, 2024 06:55 AM [facility] CBC BLOOD Specimen Type: BLOOD No comment entered. Ordering Provider: BARBI PACE Report Released Date/Time: Aug 23, 2024 02:43 PM Reporting Lab: [facility] [address] [facility] [address] Performing Lab: [facility] [address] [facility] [address] [address] WBC 7.7 10*3/uL 3.6-11.2 RBC 5.21 10*6/uL [...] AM 98 73 123/87 18 98 0 [facility] Sep 18, 2024 06:43 AM 81 18 [facility] Sep 18, 2024 06:42 AM 97.9 117/80 100 4 72 159 22 [facility] Social History: Smoking Status (Most current) and Tobacco Use (All prior to encounter date) This section includes the most current, and the historical, smoking and tobacco- related health factors from the [place] facility where the Encounter took place. Current Smoking Status This section includes the most current smoking, or tobacco-related health factor, from the [place] facility where the Encounter took place. Date/Time Current Smoking Status Comment Khurram reyes Feb 10, 2024 06:16 PM ORYX ADMIT TOBACCO SCREEN NO [facility] Advance Directives: All historical and current Section Date Range: From patient's date of to the date document was created. This section includes ALL of a patient's completed or amended [place] Advance and Rescinded Directives. The entries below indicate that a directive exists for the patient, but an actual copy is not included with this document. The data comes from all [place] facilities. Date Advance Directives Provider Source Feb 16, 2024 [address] GINA [address] [facility] Encounter Notes: All associated encounter notes This section contains the clinical notes associated to the Encounter. Date/Time Encounter Note(s) Provider Source Sep 18, 2024 02:24 PM CARDIOLOGY NOTE: LOCAL TITLE: CARDIOLOGY CHART REVIEW [facility] STANDARD TITLE: CARDIOLOGY NOTE DATE OF NOTE: SEP 18, 2024@14:24 ENTRY DATE: SEP 18, 2024@14:24:18 AUTHOR: ABRIL VERGARA EXP COSIGNER: URGENCY: STATUS: COMPLETED MD BRIEF NOTE Personally performed RHC today, revealing low CO/CI, and elevated biventricular filling pressures. Discussed with Mr. Ann the following plan: -Increase torsemide to 20mg qAM / 10mg qPM -Recheck BMP in 1 week -Will also discuss with him the possibility of elective admission for trial of PAIRER and weaning of droxidopa to fully assess dysautonomia. This would be a contraindication to advanced therapies. /luan/ ABRIL VERGARA MD PHD STAFF PHYSICIAN AND CHIEF OF HEART FAILURE Signed: 09/18/2024 14:[address] [facility] Sep 18, 2024 02:19 PM CARDIOLOGY PROCEDURE NOTE: LOCAL TITLE: CARDIOLOGY-CART CATH/PROCEDURE NOTE ST STANDARD TITLE: CARDIOLOGY PROCEDURE NOTE DATE OF NOTE: SEP 18, 2024@14:19 ENTRY DATE: SEP 18, 2024@14:19:34 AUTHOR: CANDIE KUHN COSIGNER: BARBI PACE URGENCY: STATUS: COMPLETED [facility] CART Program for Clinical Assessment, Reporting, and Tracking CARDIOVASCULAR DIAGNOSTIC AND THERAPEUTIC PROCEDURE REPORT Patient: GOSIA ANN SSN: [id number] : 1965 AGE: 59 Procedure Date: 09/18/2024 Associated Assessment: CV (09/18/2024) Procedure Status: Elective outpatient procedure Attending: ABRIL VERGARA Assisting: CANDIE KUHN PROCEDURE INDICATIONS Primary Indication: Systolic Heart Failure PROCEDURES PERFORMED Diagnostic Procedures: Right Heart Catheterization Other Procedures: Ultrasound guidance for vascular access Moderate sedation Drug infusion TIME-OUT A time-out was performed addressing all safety requirements relevant to the procedure. Type of procedure, site, and patient ID were verified with the patient. The attending has assessed or re-assessed the patient and there are no changes to the pre-procedure assessment. NPO since: 0000 ACCESS Venous: Ultrasound guided Right Int Jugular access (7F), Hemostasis with manual compression CATHETERS ALL PROCEDURES Heart rate (Bpm): 76 Aorta (mmHg): 116/ 77, mean 85 RIGHT HEART CATHETERIZATION Pressures (mmHg) RA mean: [...] 2.3 Wood units Systemic vascular resistance: 1677 [id number] Oxygen Saturations: Arterial saturation: 95% Mixed venous saturation: 57% PROCEDURE DETAILS AND FINDINGS Technical Details: The right internal jugular vein was draped and prepared in sterile field. Ultrasound guidance was used to localize the vein. Lidocaine was injected at the access site for local anesthesia. Access to the vein was obtained using ultrasound guidance and a micropuncture needle and wire. A 6F sheath was inserted, aspirated and flushed. A 7F PA, balloon-tipped catheter was advanced, using fluoroscopic guidance when needed, through the right heart chamber and to the pulmonary arteries as pressures were recorded. Blood samples were taken from the RA and PA for Zakia CO calculation. Thermodilution CO was calculated after serial saline injections in the proximal port and measurement of thermal change at the distal port After all necessary data was obtained, the catheter was removed. The venous sheath was removed and manual compression held with good hemostasis. Conscious sedation was administered and supervised by the undersigned attending. Please see nursing log for specific medications and doses. Procedure Findings: 1. Mild isolated post-capillary pulmonary hypertension with mPAP 32 mmHg, PVR 2 HERNANDEZ, PCWP 25 mmHg. Normal DPG 2 mmHg. 2. Decreased Bi-V function with Zakia and Td CO/CI: 3.1/1.6 and 3.1/1.6. 4. Decreased RV function with Tsering 0.8. 5. Elevated right/left sided filling pressures as evidenced by RAP 20 mmHg and PCWP 25 mmHg. 6. Elevated transpulmonary gradient 18 mmHg. IN-LAB MEDICATIONS Lidocaine 2% 3 mL Versed 0.5 mg Fentanyl 12.5 mcg Start of procedure: 09/18/2024 08:47 End of procedure: 09/18/2024 09:07 Summary Data: Total Contrast: 0 mL Total Fluoroscopy Time: 2.1 min Radiation DAP: 1.6 mGy-cm2 Air Kerma: 17.99 mGy Total Fluids: 41 mL Estimated Blood Loss: 10 mL Specimen removed: No PERIPROCEDURAL COMPLICATIONS No Major Adverse Events or Complications The attending was present throughout the procedure. PROCEDURE SUMMARY - Right internal jugular vein access with Prelude ACT Amboy 7F x 11cm - Right heart cath performed with Macon DeRoyal 7F catheter - Hemostasis achieved with manual compression Right Heart Cath Findings: 1. 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 Normal DPG 2 mmHg. 2. Decreased Bi-V function with Zakai and Td CO/CI: 3.1/1.6 and 3.1/1.6. 4. Decreased RV function with Tsering 0.8. 5. Elevated right/left sided filling pressures as evidenced by RAP 20 mmHg and PCWP 25 mmHg. 6. Normal transpulmonary gradient 7 mmHg. RECOMMENDATIONS - Increase torsemide to 10 mg twice daily. - Outpatient follow up with cardiology as scheduled. PROCEDURE CODING Coding Procedure 16711 Ultrasound guidance for vascular access N/A Moderate sedation 30519 Drug infusion 657 [facility]:[id number] 09/18/2024 /luan/ CANDIE KUHN MD PAIRER Signed: 09/18/2024 14:19 /luan/ BARBI PACE LOGGING ASSISTANTCAPONIZER, Cosigned: 09/18/2024 16:44 CANDIE KUHN [facility] Sep 18, 2024 09:19 AM PHYSICIAN EDUCATION DISCHARGE NOTE: LOCAL TITLE: DISCHARGE INSTRUCTIONS ST STANDARD TITLE: PHYSICIAN EDUCATION DISCHARGE NOTE DATE OF NOTE: SEP 18, 2024@09:19 ENTRY DATE: SEP 18, 2024@09:19:54 AUTHOR: CANDIE KUHN EXP COSIGNER: ABRIL VERGARA URGENCY: STATUS: COMPLETED 1. DIAGNOSES: Post Cardiac Catheterization 2. FUTURE APPOINTMENT(S): *To reschedule [facility] appointments call and use extension below. date/time clinic phone number 09/18/24 12:00 pm [facility] 12/26/24 9:00 am [facility] [phone] *This listing may be incomplete. Please refer to Appointment Mgmt.listing for any additional patient appointments 3. DISCHARGE MEDICATIONS: Post Cardiac Catheterization Resume the same medications you were taking before the catheterization unless otherise ordered by your physician. As it is important to avoid straining for bowel movements for 7 days, if you tend to be constipated and/or regularly strain to pass stool, please inform your nurse so that a stool softening medication can be ordered. TO HELP YOU UNDERSTAND YOUR DRUG LIST ACTIVE ...means that you are presently taking these meds. SUSPENDED means that your prescription is active and in the mail order process. PENDING ..means that the medication has just been renewed, or, just ordered. HOLD .....means that the medication is active on your list, but will not be processed until pharmacy receives further instructions from you or your doctor to proceed with filling the prescription for delivery. NON-VA ...means you are getting the medication from somewhere besides the [facility]. Active Outpatient Medications (including Supplies): Active Outpatient [...] ONCE A DAY ACTIVE 12 Total Medications NEW MEDICATIONS (and indicatons): none The following changes were made to the medications you were taking prior to this hospitalization: none These medications have been stopped during your hospitalization (and reason why): none At your next appointment, please remember to bring all of your medication bottles with you Medication Reconciliation: I have discussed active and pending medications with the patient and/or furnace caretaker. I have made changes as appropriate................ .NO 4. DISCHARGE INTRUCTIONAL MATERIALS *To be printed by Nurse and provided to patient Other (specify below) poast cardiac cath, right internal jugular access 5. WOUND MANAGEMENT: Other (specify below) keep access site dry and clean 6. DISCHARGE DIETARY INSTRUCTIONS: Post Cardiac Catheterization Resume your normal diet immediately unless directed otherwise by your physician. If you have questions, contact the dietitians at [phone]. 7. DISCHARGE PHYSICAL ACTIVITY INSTRUCTIONS: Return to activity as tolerated 8. OTHER (Include employment status): 9. WORSENING and/or DANGEROUS SYMPTOMS TO REPORT (Phys. entry required): Specialist Information: Follow-up with your Primary Care Physician or Specialist or call [facility] Helpline: [phone] NOTE: If you are having feelings of Depression or Emotional Distress, or feel you just need to talk with someone, please call PRESS 1. Copy Provided to Patient, Discussed with family/spouse, Copy sent with Patient to Other facility /luan/ CANDIE KUHN MD PAIRER Signed: 09/18/2024 09:21 /luan/ ABRIL VERGARA MD PHD STAFF PHYSICIAN AND CHIEF OF HEART FAILURE Cosigned: 09/18/2024 14:22 CANDIE KUHN [facility] ROSIE [facility] Sep 18, 2024 09:16 AM CARDIOLOGY NURSING PREPROCEDURE NOTE: LOCAL TITLE: PREMIUM AUDITOR PROCEDURE STL STANDARD TITLE: CARDIOLOGY NURSING PREPROCEDURE NOTE DATE OF NOTE: SEP 18, 2024@09:16 ENTRY DATE: SEP 18, 2024@09:17:02 AUTHOR: ALFRED DAO EXP COSIGNER: ABRIL VERGARA URGENCY: STATUS: COMPLETED Case Report Patient Information Patient Name: Gosia Ann Date of : 1965 Age: 59 years Financial #: Gender: M Accession #: Hospital Room #: Height (in): 72.0 Height (cm): 182.9 BSA: 1.93 Weight (lbs): 159.0 Weight (kg): 72.3 AlternateID: Lab Number: 5 Address Type Replaced By [facility] Zip Code Patient Address/Phone Number Patient Phone Study Information Scheduled Start Study Start 09/18/2024 09/18/2024 8:34 Facility Department [facility] Vargas - Crochet Machine Operator Physician and Clinical Staff Initial MD: Barbi Pace Additional MD: Tico Vergara Fellow: Candie Kuhn Outdoor Landscape Architect: Citlalli Vasquez Outdoor Landscape Architect: Antonia Barros Holding Area: Juan Gracia Recorder: Alfred Dao Scrub: Ehsan Pittman Diamond Driller Description Size Mfg Part Number Used/Scraped 8:23 Avid Medical Cath Pack-Intervention [id number] Used 8:23 DeRoyal Macon DeRoyal 7F DTD [id number] Used 8:33 DeRoyal Macon DeRoyal 7F DTD [id number] Used 8:22 Hovertech Int Hovermatt [id number] Used 8:23 Medline Drape Brachial [id number] Used 8:33 MeritMedical Prelude ACT Amboy 7F x 11cm [id number] Used Equipment 09/18/2024 9:16:32 Financial #: 1 of 7 Patient Name: Gosia Ann Date of : 1965 Study #: Initial MD: Barbi Pace Study Date: 09/18/2024 Labs Hgb (12.00-18.00) 15.3 gm/dl Hct (37.00-55.00) 47.3 % Plat (140.00-450.00) 241 thousands Creat (0.10-9.00) 1.4 mg/dl K (3.80-5.10) 4.4 meq/l PT (10.80-13.80) 20.6 sec INR (0.50-2.00) 1.9 PTT:PT Vitals Summary Time HR NIBP SpO2 Resp Temp EtCO2 Apnea Evelia Pain Level Fuentes Comment 8:34:19 72 115/73 100.0 16 0 2 8:39:18 70 117/75 99.0 11 0 2 8:44:21 64 97/67 99.0 16 0 2 8:49:16 69 106/73 98.0 8 0 2 8:54:17 68 95/73 94.0 15 0 2 8:59:18 75 107/58 93.0 18 0 2 9:04:19 76 101/70 94.0 15 0 2 9:09:16 70 109/73 92.0 18 0 2 9:14:19 75 116/77 98.0 10 0 2 Time Study Chronological Log 8:22:52 ASA SCORE=Class 3. 8:22:58 Mallampati Airway Assesment=Class 3. 8:23:01 Patient arrived to holding area. 8:23:03 Patient referred from [facility] Chronological Log 09/18/2024 9:16:32 Financial #: 2 of 7 Patient Name: Gosia Ann Date of : 1965 Study #: Initial MD: Barbi Pace Study Date: 09/18/2024 8:23:07 Pre EKG completed prior to arrival. 8:23:20 Assessment: HR=68 BPM, Rhythm=aflutter, TYUI=615/66 mmhg, Chest Pain=0, Edema=None, Color=Normal, Skin = Warm, Dry Right Pulses: Nikko Ped=1, Post Tib=1 Left Pulses: Nikko Ped=1, Post Tib=1 Neurological: State=Alert, Ox3, BOLDEN Respiration: Resp=18 B/min, SpO2=97 % 8:24:08 Patient status:Outpatient-from 8:24:12 Pre cath education completed. Meds & equipt. explained, questions answered. Plan of care discussed. Pt verbalizes understanding 8:24:13 Informed consent obtained on IMED in CPRS by physician for RHC and possible follow on DIANNE/Cardioversion 8:24:37 Patient has been NPO since:09/17/2024 8:24:47 Pt arrived from [facility] with labs drawn and working IV noted. 8:24:50 See CPRS for med list. 8:24:51 Hogshead Mat Inspector not requested 8:24:52 Site prepped with surgical clippers in the holding area 8:24:53 A 20 gauge IV was noted in the Hand (left). 8:25:11 Last Patient's Log Entered Into CPRS. 8:25:14 Pt verbalized taking eliquis this morning 8:27:13 MD notified 8:27:14 Attending MD present 8:27:20 Prep complete. Patient ready for cardiac cath. 8:27:21 Pt transfer to Crochet Machine Operator Room 8:33:50 Vitals capture started with the following parameters, Patient=Adult, Interval=5 min, Initial Cpyvzwiz=288 mmHg, Deflation Rate=5 mmHg 8:34:19 HR=72 bpm, IXLI=270/73 mmhg, QcH1=663.0 %, Resp=16 B/min, Pain=0, Fuentes=2 8:34:20 Reference ECG taken 8:34:37 Patient Arrival Time (Pt. in proc room) 8:34:39 Fire Risk Assessment performed. 8:34:42 Ignition source (cautery,laser,fiberoptic light)-1=Y, 0=N =0 8:34:44 Open Oxygen source-1=Y, 0=N =1 8:34:55 Procedure site above Xiphoid-1=Y, 0=N =1 8:34:56 Total Score(1-2=routine protocol; 3=high risk fire protocol)=2 8:34:57 Mobile sherwood in use 8:34:58 Permanent dose record reviewed 8:34:59 Staff at procedure table wearing Leaded glasses 8:34:59 Staff wearing internal and external film badges 8:35:00 Staff wearing lead aprons and collars 8:35:01 X-ray Image detector height reviewed 8:35:02 Warning level at 300,000 mGy/cm2 D.A.P. or 2,000 mGy A.K. 09/18/2024 9:16:32 Financial #: 3 of 7 Patient Name: Gosia Ann Date of : 1965 Study #: Initial MD: Barbi Pace Study Date: 09/18/2024 8:35:03 X-ray protocol selected 8:35:03 All staff to report radiation concerns in real time 8:39:18 HR=70 bpm, MNLU=699/75 mmhg, SpO2=99 %, Resp=11 B/min, Pain=0, Fuentes= 2 8:44:21 HR=64 bpm, NIBP=97/67 mmhg, SpO2=99.0 %, Resp=16 B/min, Pain=0, Fuentes=2 8:45:37 Attending MD present 8:45:38 Time out including patient, procedure & site verification took place with staff, physician and patient prior to start of case. 8:45:39 Time out performed by:Citlalli Van, CECE, Alfred Dao RN, Jennifer Avendaño RN Everyone in agreement to proceed with procedure. 8:45:40 Procedure site has been marked appropriately and the gosia is visible after prep and drape. 8:45:40 Valid consent form, containing information consistent with paragraph 5.f.(1)a via A Directive 1039(3) 8:45:41 Patient position: supine 8:45:41 Procedure: RHC 8:45:46 Patient ID correct 8:45:47 Site: right ij 8:45:54 Patient prepped and draped in sterile fashion. 8:45:55 Patient identified by Name, Birthdate and SS#. 8:45:56 Pertinent Medical images have been confirmed-N/A. 8:45:56 Correct medical implant available. 8:45:57 Appropriate antibiotic prophylaxis-N/A. 8:45:57 Blood availability-N/A. 8:45:59 Special equipment available-N/A. 8:46:32 12.5 mcg FENTANYL given in lab by Antonia Barros via Peripheral IV. Ordered by Tico Vergara. Reason: Verbal order, read back and confirmed. 8:46:49 0.5 mg VERSED given in lab by Antonia Barros via Peripheral IV. Ordered by Tico Vergara. Reason: Verbal order, read back and confirmed. 8:47:05 IV SOLUTIONS given in lab by Antonia Barros via Peripheral IV. Pump/Drip Flow = 15 ml/hr using NaCl .9. Ordered by Tico Vergara. Reason: Verbal order, read back and confirmed. 8:47:18 Case Start 8:47:19 3 mL LIDOCAINE 2% given in lab by Tico Vergara via Subcutaneous in right neck. Ordered by Tico Vergara. 8:49:16 HR=69 bpm, FQBS=927/73 mmhg, SpO2=98.0 %, Resp=8 B/min, Pain=0, Fuentes=2 8:50:44 Pressure channel 1 zeroed. 8:52:29 A Prelude ACT Amboy 7F x 11cm was inserted into the Fem Vein (right) and advanced. 8:54:17 HR=68 bpm, NIBP=95/73 mmhg, SpO2=94.0 %, Resp=15 B/min, Pain=0, Fuentes=2 8:56:35 A Macon DeRoyal 7F was inserted. 8:57:16 Recorded Pressure: RA, HR=72, Condition=Condition 1 (Right Atrium) RA 8:58:52 Recorded Pressure: RV, HR=80, Condition=Condition 1 (Right Ventricle) RV 8:59:18 HR=75 bpm, MAWG=771/58 mmhg, SpO2=93.0 %, Resp=18 B/min, Pain=0, Fuentes=2 09/18/2024 9:16:32 Financial #: 4 of 7 Patient Name: Gosia Ann Date of : 1965 Study #: Initial MD: Barbi Pace Study Date: 09/18/2024 8:59:29 Recorded Pressure: PA, HR=83, Condition=Condition 1 (Pulmonary Artery) PA 9:01:21 Recorded Pressure: PCW, HR=70, Condition=Condition 1 (Pulmonary Capillary Wedge) PCW / 9:01:34 Saturation: Site=PA (Pulmonary Artery) , O2=51.3 %, Hgb=15.2 gm/dl, Condition=Condition 1. Used in calculation. 9:01:56 Saturation: Site=PA (Pulmonary Artery) , O2=62.7 %, Hgb=14.9 gm/dl, Condition=Condition 1. Used in calculation. 9:02:12 Saturation: Site=PCW (Pulmonary Capillary Wedge) , Condition=Condition 1. Used in calculation. 9:02:53 Saturation: Site=PCW (Pulmonary Capillary Wedge) , O2=69.7 %, Hgb=14.9 gm/dl, Condition=Condition 1. Used in calculation. 9:04:09 Recorded Pressure: PCW, HR=74, Condition=Condition 1 (Pulmonary Capillary Wedge) PCW 9:04:19 HR=76 bpm, SHKF=915/70 mmhg, SpO2=94.0 %, Resp=15 B/min, Pain=0, Fuetnes=2 9:04:58 Saturation: Site=PCW (Pulmonary Capillary Wedge) , O2=75.8 %, Hgb=14.7 gm/dl, Condition=Condition 1. Used in calculation. 9:06:34 Thermo CO: CO=3.1 l/m, HR=77 bpm, Condition=Condition 1. Used in calculation. Equipment: Description and Size=Macon DeRoyal 7F, Type=Bath Probe, CC=0.595 Injectant: Volume=10.0 ml 9:07:43 Saturation: Site=Ao (Aorta) , O2=95 %, Condition=Condition 1. Used in calculation. 9:07:51 Thermo CO: CO=3.5 l/m, HR=79 bpm, Condition=Condition 1. Used in calculation. Equipment: Description and Size=Macon DeRoyal 7F, Type=Bath Probe, CC=0.595 Injectant: Volume=10.0 ml 9:08:31 Thermo CO: CO=2.8 l/m, HR=72 bpm, Condition=Condition 1. Used in calculation. Equipment: Description and Size=Macon DeRoyal 7F, Type=Bath Probe, CC=0.595 Injectant: Volume=10.0 ml 9:09:16 HR=70 bpm, VVNG=860/73 mmhg, SpO2=92.0 %, Resp=18 B/min, Pain=0, Fuentes=2 9:09:59 A Right Heart Cath was performed. 9:10:15 A Macon DeRoyal 7F was removed. 9:10:25 Procedure Finish Time (Cath disengaged) 9:10:28 Assessment: Final Case, HR=80 BPM, Rhythm=A FIB, CDCY=010/73 mmhg, Chest Pain= 0, Edema=None, Color=Normal, Skin = Warm, Dry Right Pulses: Nikko Ped=1, Post Tib=1 Left Pulses: Nikko Ped=1, Post Tib=1 Lower Right Extremities: Color=Normal Lower Left Extremities: Color=Normal Neurological: State=Alert, Ox3, BOLDEN Respiration: Resp=18 B/min, SpO2=96 % 9:11:21 Post cath orders in CPRS 9:11:22 Post-cath education completed. D/C instructions reviewed & given to pt, questions answered. Pt verbalizes understanding. 9:11:23 Report given to 4N RN 9:11:45 Patient scheduled for same day discharge 9:11:52 Fluoro Time(min) =2.1 9:12:02 DAP(Gy)=1.6 9:12:12 A.K.(mGy)=17.99 9:12:25 Case completion less than 4,000 mGy A.K. 9:12:27 Permanent dose record reviewed 9:12:28 Procedure results discussed with Patient and Family by Kalin 09/18/2024 9:16:32 Financial #: 5 of 7 Patient Name: Gosia Ann Date of : 1965 Study #: Initial MD: Barbi Pace Study Date: 09/18/2024 Saturation Location Saturation (%) Hgb Value (gm/dl) Used in calculation Time Documented Ao 95.0 Yes 9:07:43 PA 51.3 15.2 Yes 9:01:34 PA 62.7 14.9 Yes 9:01:56 PCW Yes 9:02:12 PCW 69.7 14.9 Yes 9:02:53 PCW 75.8 14.7 Yes 9:04:58 Oxygen Saturation Samples Oxygen Saturation Group Summary Saturation Group Avg Sat (%) Used Hgb (gm/dl) Avg Content Total Samples Total Samples Used Hgb from: AO 95.0 15.3 197.7 1 1 Lab PA 57.0 15.3 118.6 2 2 Lab PCW 48.5 15.3 100.9 3 3 Lab Normal Oxygen Saturation Range: RA, RV, PA, IVC, SVC = 65% - 80% AO, LA, PV, PCW, LV = 95% - 100% Peripheral Arterial = 94% - 97% Oxygen Saturations: Condition 1 Cardiac Ouput Heart Rate CO (L/min) CI (L/min)/m2) SWI (gm*m)/m2) SV (ml) SVI (ml/m2) Zakia 3.1 1.6 Thermo 76 3.1 1.6 41.2 21.4 * = Manually Altered Zakia Cardiac output = O2 Consumption/(AOsat (%) x Hgb x 1.36 x 10) - (MVsat (%) x Hgb x 1.36 x 10). Oxygen Values/Cardiac Output/Resistances: Condition 1 Oxygen Values O2 Consumption O2 Capacity 241.3 + 208.1 * = Manually Altered + = O2 Consumption is calculated using the formula 125 x BSA and should be considered a rough estimate. 9:12:30 Family Status-In Waiting Area-MD Aware 9:14:19 HR=75 bpm, ZNPJ=756/77 mmhg, SpO2=98.0 %, Resp=10 B/min, Pain=0, Fuentes=2 9:19:02 Patient transferred to wilson healther via slideboard 9:19:05 Patient Transfer Time (Pt. leaves proc. rm.) Max Contrast Load (mL) 258.1 End Study - Maximum Contrast Load 09/18/2024 9:16:32 Financial #: 6 of 7 Patient Name: Gosia Ann Date of : 1965 Study #: Initial MD: Barbi Pace Study Date: 09/18/2024 Fluoro Time (minutes) Cine Dose (cGy*cm2) Air Kerma (mGy) 2.1 1 17 End Study - Radiation Exposure End Study - Sheaths Sheaths Pulled By Sheath Hold Time (min) Antonia Barros 10 End Study - Patient Fluids IV Intake (mL) Total Output (mL) 41 End Study - Patient Disposition Complications Transferred To No Outpatient Bed 09/18/2024 9:16:32 Financial #: 7 of 7 Patient Name: Gosia Ann Date of : 1965 Study #: Initial MD: Barbi Pace Study Date: 09/18/2024 /luan/ ALFRED DAO BSN RN REGISTERED NURSE Signed: 09/18/2024 09:18 /luan/ ABRIL VERGARA MD PHD STAFF PHYSICIAN AND CHIEF OF HEART FAILURE Cosigned: 09/18/2024 14:20 ALFRED DAO [facility] Sep 18, 2024 09:13 AM CARDIOLOGY PROCEDURE NOTE: LOCAL TITLE: CARDIAC CATHETERIZATION BRIEF PROCEDURE STL STANDARD TITLE: CARDIOLOGY PROCEDURE NOTE DATE OF NOTE: SEP 18, 2024@09:13 ENTRY DATE: SEP 18, 2024@09:14:21 AUTHOR: CANDIE KUHN COSIGNER: ABRIL VERGARA URGENCY: STATUS: COMPLETED PROCEDURE SUMMARY Date of procedure(s): Aug Pre-procedure diagnosis: Non-ischemic cardiomyopathy, cardiac amyloidosis Post-procedure diagnosis: Mean RAP 20 mmHg, RV 42/16/20, Mean PA 32 mmHg, PCWP 30 mmHg, CO/CI by Zakia and Td 3.1/1.6 and 3.1/1.6. Right IJ access s/p manual compression PROCEDURE(S) PERFORMED Right Heart Catheterization PHYSICIAN(S) PERFORMING THE PROCEDURE(S) Select Physician(s) performing the procedure(s): Other: Other: Dr. Abril Vergara Physician assisting procedure(s): Candie Kuhn MD ANCILLARY STAFF Anesthesia administered: Type of anesthesia: Moderate sedation Specimen removed: None FINDINGS Right Heart Catheterization Findings: Mean RAP 20 mmHg, RV 42/16/20, Mean PA 32 mmHg, PCWP 30 mmHg, CO/CI by Zakia and Td 3.1/1.6 and 3.1/1.6. Right IJ access s/p manual compression Complications: None Estimated blood loss: 10ml Post procedure condition: Stable Discharge/Transfer to: The Attending Physician was present throughout the procedure. This is a preliminary note. Final CART-CL report will follow. Patient cannot drive for 24-48 hours, depending on access site. These instructions were provided to the patient. /luan/ CANDIE KUHN MD PAIRER Signed: 09/18/2024 09:19 /luan/ ABRIL VERGARA MD PHD STAFF PHYSICIAN AND CHIEF OF HEART FAILURE Cosigned: 09/18/2024 14:18 CANDIE KUHN [facility] Sep 18, 2024 08:15 AM CARDIOLOGY DIAGNOSTIC STUDY REPORT: LOCAL TITLE: CP CARDIAC CATH REPORT STANDARD TITLE: CARDIOLOGY DIAGNOSTIC STUDY REPORT DATE OF NOTE: SEP 18, 2024@08:15:30 ENTRY DATE: SEP 18, 2024@08:15:30 AUTHOR: CLINICAL,DEVICE PRO EXP COSIGNER: URGENCY: STATUS: COMPLETED PROCEDURE SUMMARY CODE: Machine Resulted DATE/TIME PERFORMED: SEP 18, 2024@07:15 DOCUMENT IN GEOLID SEE FULL REPORT IN [facility] Administrative Closure: 09/18/2024 by: CLINICAL,DEVICE PROXY SERVICE CLINICAL,DEVICE PROXY SERVICE [facility] Sep 18, 2024 07:40 AM INTERVENTIONAL CARDIOLOGY PRE OPERATIVE NOTE: LOCAL TITLE: CARDIOLOGY-CART PRE-CATH ASSESSMENT STANDARD TITLE: INTERVENTIONAL CARDIOLOGY PRE OPERATIVE NOTE DATE OF NOTE: SEP 18, 2024@07:40 ENTRY DATE: SEP 18, 2024@07:41:04 AUTHOR: CANDIE KUHN EXP COSIGNER: ABRIL VERGARA URGENCY: STATUS: COMPLETED Social History: Tobacco use: No Alcohol use: No Illicit drug abuse: No Sedation/Anesthesia History: Prior sedation or anesthesia: Yes Prior adverse reaction to sedation anesthesia: No [facility] of Reaction: [facility] Program for Clinical Assessment, Reporting, and Tracking CARDIOVASCULAR PRE-PROCEDURE ASSESSMENT REPORT Patient: GOSIA ANN SSN: [id number] : 1965 AGE: 59 Assessment for elective CARDIOVASCULAR procedure Assessed by: CANDIE KUHN Date: 09/18/2024 Attending: BARBI PACE Referred by: Dr Vergara, MELVA PRESENTATION This is 59 year old MALE with nonischemic cardiomyopathy, AL cardiac amyloidosis, followed by Dr. Vergara in heart failure clinic, scheduled for DIANNE guided cardioversion with RHC to assess filling pressures. On Eliquis. Also has low blood pressure issues and takes midodrine 3 times a day and droxidopa. [facility] ([facility], 07/2023) with LVEF 38%. Primary Indication Systolic Heart Failure NYHA Functional Class III CARDIAC RISK FACTORS Hypertension REVIEW OF SYSTEMS PHYSICAL EXAM Vital Value Unit Date/Time BP 117/ 80 mmHG 2024-09-18 06:42 HR 81 bpm 2024-09-18 06:43 Height 72 inches 2024-09-18 06:42 Weight 159 lbs 2024-09-18 06:42 BSA 1.8 m^2 2024-09-18 06:42 Neck: JVD No carotid bruits Lungs: No rales present Cardiac: No extra heart sound present Systolic murmur Extremities: No femoral bruits Leg Pulses: Normal left femoral pulse Normal right femoral pulse Normal left dorsalis pedis pulse Normal right dorsalis pedis pulse Normal left posterior tibial pulse Normal right posterior tibial pulse Arm Pulses: Normal left radial pulse Normal right radialpulse Normal left brachial pulse Normal right brachial pulse LABS Lab Value Date/Time Alert BNP 1089 2024-02-10 18:35 high Creatinine 1.26 2024-02-16 02:00 Potassium 4.3 2024-02-16 02:00 Hematocrit 43.5 2024-02-16 20:00 Platelets 252 2024-02-16 20:00 INR 1.9 2024-09-18 06:55 OUTPATIENT MEDICATIONS DROXIDOPA 300MG ORAL CAP Qty: 90 for 30 days expires: 05/09/2025; last filled: 08/27/2024; active Sig: TAKE ONE CAPSULE BY MOUTH THREE TIMES A DAY FOR HYPOTENSION Indication: FOR HYPOTENSION NUTRITION SUPL ENSURE PLUS/STRWBERRY LIQ Qty: 48 for 24 days expires: 02/17/2025; last filled: 02/17/2024; active Sig: TAKE 1 CANFUL BY MOUTH TWICE A DAY FOR NUTRITION/DIETARY SUPPLEMENTATION ATORVASTATIN CALCIUM 80MG TAB Qty: 45 for 90 days expires: 09/21/2024; last filled: 09/23/2023; active Sig: TAKE ONE-HALF TABLET BY MOUTH EVERY EVENING FOR HIGH CHOLESTEROL Indication: FOR HIGH CHOLESTEROL Non-VA PANTOPRAZOLE NA 40MG EC TAB 40MG BY MOUTH EVERY MORNING BEFORE A MEAL Non-VA EMPAGLIFLOZIN TAB,ORAL 10MG BY MOUTH ONCE A DAY Non-VA MIDODRINE HCL 10MG TAB 10MG BY MOUTH THREE TIMES A DAY Non-VA SPIRONOLACTONE 25MG TAB 25MG BY MOUTH ONCE A DAY Non-VA ACYCLOVIR 400MG TAB 400MG BY MOUTH THREE TIMES A DAY Non-VA PROCHLORPERAZINE MALEATE 10MG TAB 10MG BY MOUTH EVERY 6 HOURS NEEDED Non-VA POLYETHYLENE GLYCOL 3350 ORAL PWDR 1 CAPFUL BY MOUTH ONCE A DAY NEEDED Non-VA TORSEMIDE 10MG TAB 10MG BY MOUTH ONCE A DAY Non-VA APIXABAN 5MG TAB 5MG BY MOUTH TWICE A DAY MEDICATION REVIEW AND RECONCILIATION Medications (prescriptions and over the counter) reviewed with the patient and reconciled in the medical record. ALLERGIES/ADVERSE REACTIONS No known allergies SEDATION/CONSENT CodeStatus: Full Code Anesthesia: consult not needed Sedation by Cardiology Mallampati Class 3: only soft palate visible No difficulty with prior moderate sedation, analgesia, general anesthesia and/or regional anesthesia. Physical status assessment (ASA class): 3 - Patient with severe systemic disease with functional limitation that is not life threatening NPO for procedure was explained to patient/surrogate. The risks, benefits, and alternatives of the procedure and sedation/analgesia were explained to and discussed with the patient/surrogate in detail. All questions have been answered and the patient/surrogate understands the potential risks and benefits and consents to the procedure and the plan for sedation. PROCEDURE PLAN Planned Diagnostic Procedures: Right Heart Catheterization SUMMARY [id number] 09/18/2024 /luan/ CANDIE KUHN MD PAIRER Signed: 09/18/2024 07:41 /luan/ ABRIL VERGARA MD PHD STAFF PHYSICIAN AND CHIEF OF HEART FAILURE Cosigned: 09/18/2024 14:21 CANDIE KUHN [facility]
--- OUTSIDE RECORDS SUMMARY | 2025-06-24 11:48 | XMS_ITS | Clinical Summary ---
Author Organization [facility] [employer] Address [address] [place] [address] Care Team Providers Care Cutting Machine Operator Name Role Phone Unavailable Primary Care Provider Unavailabl e Source Comments [facility],non-owned Affiliates and Associated Physician Practices is amultiple site organization consisting of ambulatory clinics and hospital sitesin [place], [place], [place] and [place]. This disclosure is being madepursuant to the Care Everywhere program and may not contain all information available regarding this patient. Last updated 18.[facility] [employer] Social History Tobacco Use Types Packs/Day Years [...]
--- OUTSIDE RECORDS SUMMARY | 2025-06-24 11:48 | XMS_ITS ---
Author Name [facility] Address [address] [place] [address] Care Team Providers Care Lead Generation Specialist Name Role Phone ADAMA CHACON Primary Care Provider Unavailabl e Insurance Providers: [...] Kennedy's Name Patient's Relationship to Policy Kennedy [facility] 2024 [facility] Nov 21, 2024 [facility] [id number] Elzbieta ZUNIGA PATIENT Selected Encounter This section includes the information on record at [place] for the Encounter. 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 Date/Time Primary/Secondary Diagnosis Diagnosis Name Provider Source April 02, 2025 01:19 PM PRIMARY Chronic combined systolic and diastolic hrt fail ANTHONY LEYVA [facility] Plan of Treatment: Future Appointments (+ 6 months) and Future Tests (+/- 45 days) The Plan of Treatment section includes future care activities for the [facility] This section includes future appointments and future orders which are active, pending or scheduled. Future Appointments This section includes appointments that were scheduled to occur 6 months from the date of the Encounter, up to a maximum of 20 appointments. The data comes from all [place] treatment [facility]. Appointment Date/Time Appointment Type Appointme nt Facility Name Jul 24, 2025 09:00 AM AMBULATORY - MEDICINE [facility] Aug 14, 2025 02:40 PM AMBULATORY - NONE [facility] Active, Pending, and Scheduled Orders This section includes a listing of several types of active, pending, and scheduled orders, including clinic medications orders, diagnostic test orders, procedure orders and consult orders; where the start date of the order is 45 days before the date of the Encounter or 45 days after the date of theEncounter. The data comes from all [facility]. Test Date/Time Test Type Test Details Facility Name Feb 28, 2025 12:00 AM Laboratory - Chemi stry Order BASIC METABOLIC PANEL GREEN LI/HEP BLD/PLAS PLASMA SP [facility] March 29, 2025 03:45 PM Consult Order COMMUNITY CARE-TRANSPLANT EVALUATION STL Cons Room Manager's Choice [facility] Social History: Smoking Status (Most current) and Tobacco Use (All prior to encounter date) This section includes the most current, and the historical, smoking and tobacco- related health factors from the PA facility where the Encounter took place. Current Smoking Status This section includes the most current smoking, or tobacco-related health factor, from the PA facility where the Encounter took place. Date/Time Current Smoking Status Comment Facil ity Jan 17, 2025 09:00 AM VA-TOBACCO NEVER U SED CIGARETTES [facility] Tobacco Use History This section includes a history of the smoking, or tobacco-related health factors, that were collected on or before the date of the Encounter. The data comes from the PA facility where the Encounter took place. Date/Time Smoking Status/Tobacco Use Comment F acility Jan 17, 2025 09:00 AM VA-TOBACCO NEVER U SED OTHER TYPE [facility] Feb 10, 2024 06:16 PM ORYX ADMIT TOBACCO SCREEN NO [facility] Advance Directives: All historical and current Section Date Range: From patient's date of to the date document was created. This section includes ALL of a patient's completed or amended [place] Advance and Rescinded Directives. The entries below indicate that a directive exists for the patient, but an actual copy is not included with this document. The data comes from all [place] facilities. Date Advance Directives Provider Source Feb 16, 2024 ADVANCE DIRECTIVE GINA [place] [facility] Radiology Reports: +/- 30 days of the [...] the Encounter. The data comes from all [place] treatment facilities. Date/Time Radiology Report Provider Source Mar 12, 2025 02:[address] ABDOMEN W/CONT & 3D: JERSONGOSIA BOLANOS [id number] -1965 M Exm Date: MAR 12, 2025@14:23 Req Phys: HENNY MARLEY Loc: [facility]CARDIO E-CONSULT (Req'g Loc Img Loc: [facility] IMAGING [facility] Service: Unknown [address] [id number] (Case [id number] COMPLETE) CT ABDOMEN W/O CONT (CT Detailed) CPT:97634 Reason for Study: c/f metastasis, CT adrenal gland protocol Clinical History: Responsible Attending: Henny Marley PA-C Attending Contact Number: [phone] Resident Contact Number: CT adrenal gland protocol [...] 12, 2025 Date Verified: MAR 12, 2025 Sales Merchandiser E-Sig:/ES/Zoe Craven MD Report: CASE #: [id number] DATE:03/12/2025 3:02 PM CLINICAL HISTORY:c/f metastasis, CT [...] Primary Interpreting Staff: Zoe Craven MD, Radiologist (Sales Merchandiser) /ZOE RODRIGUEZ [facility] Encounter Notes: All associated encounter notes This section contains the clinical notes associated to the Encounter. Date/Time Encounter Note(s) Provider Source April 02, 2025 01:17 PM ADDENDUM: LOCAL TITLE: Addendum STANDARD TITLE: ADDENDUM DATE OF NOTE: APRIL 02, 2025@13:17:35 ENTRY DATE: APRIL 02, 2025@13:17:37 AUTHOR: ANTHONY LEYVA COSIGNER: URGENCY: STATUS: COMPLETED Dr. Vergara and Automatic Lump Making Machine Tender WILMAN Estes are aware. Tracer will be entered this week by above providers. /luan/ AKILAH CLAROS,RN REGISTERED NURSE Signed: 04/02/2025 13:19 Receipt Acknowledged By: 04/02/2025 19:56 /luan/ WILMAN Estes-Jennifer Cardiology Physician On Call 04/03/2025 11:18 /luan/ ABRIL VERGARA MD PHD STAFF PHYSICIAN AND CHIEF OF HEART FAILURE --- Original Document --- 04/02/25 ADMINISTRATIVE COMMUNITY CARE REQUEST STL: Alert Dr. Patel, RN. [facility] can not proceed with processing transplant evaluation consult without tracer ID. Please enter tracer ID on the consult. /luan/ DANIEL WOLF Registered Nurse Signed: 04/02/2025 13:05 Receipt Acknowledged By: 04/02/2025 13:18 /luan/ AKILAH CLAROS,RN REGISTERED NURSE 04/03/2025 11:06 /luan/ ABRIL VERGARA MD PHD STAFF PHYSICIAN AND CHIEF OF HEART FAILURE ANTHONY LEYVA [facility] April 02, 2025 01:00 PM ADMINISTRATIVE NOT E: LOCAL TITLE: ADMINISTRATIVE COMMUNITY CARE REQUEST STL STANDARD TITLE: ADMINISTRATIVE NOTE DATE OF NOTE: APRIL 02, 2025@13:00 ENTRY DATE: APRIL 02, 2025@13:00:14 AUTHOR: DANIEL WOLF EXP COSIGNER: URGENCY: STATUS: COMPLETED ADMINISTRATIVE COMMUNITY CARE REQUEST STL Has ADDENDA Alert Dr. Patel, RN. [facility] can not proceed with processing transplant evaluation consult without tracer ID. Please enter tracer ID on the consult. /kimberly WOLF Registered Nurse Signed: 04/02/2025 13:05 Receipt Acknowledged By: 04/02/2025 13:18 /AKILAH Bentley,RN REGISTERED NURSE 04/03/2025 11:06 /luan/ ABRIL VERGARA MD PHD STAFF PHYSICIAN AND CHIEF OF HEART FAILURE 04/02/2025 ADDENDUM STATUS: COMPLETED Dr. Vergara and Automatic Lump Making Machine Tender WILMAN Estes are aware. Tracer will be entered this week by above providers. /luan/ ANTHONY LEYVA,MSN,RN REGISTERED NURSE Signed: 04/02/2025 13:19 Receipt Acknowledged By: 04/02/2025 19:56 /luan/ WILMAN Estes-Jennifer Cardiology Physician On Call * AWAITING SIGNATURE * ABRIL VERGARA NIKYA L [facility]
--- OUTSIDE RECORDS SUMMARY | 2025-06-24 11:48 | XMS_ITS | Encounter Summary ---
Author Name [facility] [place] [facility] [place] Address [address] [place] [address] Care Team Providers Care Inker And Opaquer Name Role Phone OSWALDOKAROLINAE Primary Care Provider [...] Relationship to Policy Kennedy [facility] 2024 [facility] Nov 21, 2024 [facility] [id number] [phone] Elzbieta ZUNIGA PATIENT Selected Encounter This section includes the information on record at [place] for the Encounter. Date/Time Encounter Type Encounter Description Reason Provider Source Jan 15, 2025 11:00 AM PSYTX W PT 60 MINUTES SOCIAL WORK SERVICE ICD-10-CM I50.20 Unspecified systolic (congestive) heart failure MEGHAN DEAN Encounter Template Text not used by [place] Assessments - Encounter Diagnoses This section includes the primary and secondary diagnoses documented for the Encounter. Date/Time Primary/Secondary Diagnosis Diagnosis Name Provider Source Jan 15, 2025 04:02 PM PRIMARY Unspecified systolic (congestive) heart failure MEGHAN DEAN [facility] Plan of Treatment: Future Appointments (+ 6 months) and Future Tests (+/- 45 days) The Plan of Treatment section includes future care activities for the patient from all [place] [facility]. This section includes future appointments and future orders which are active, pending or scheduled. Future Appointments This section includes appointments that were scheduled to occur 6 months from the date of the Encounter, up to a maximum of 20 appointments. The data comes from all [facility]. Appointment Date/Time Appointment Type Appointme nt Facility Name Jan 17, 2025 09:00 AM AMBULATORY - MEDICINE [facility] Jan 22, 2025 07:45 AM AMBULATORY - SURGERY [facility] Jan 25, 2025 07:30 AM AMBULATORY - NONE [facility] Jan 29, 2025 10:00 AM AMBULATORY - MEDICINE [facility] Feb 12, 2025 08:00 AM AMBULATORY - MEDICINE [facility] Feb 12, 2025 08:30 AM AMBULATORY - NONE [facility] Feb 26, 2025 07:15 AM AMBULATORY - NONE [facility] Mar 12, 2025 03:00 PM AMBULATORY - NONE [facility] March 27, 2025 08:30 AM AMBULATORY - MEDICINE [facility] Active, Pending, and Scheduled Orders This section includes a listing of several types of active, pending, and scheduled orders, including clinic medications orders, diagnostic test orders, procedure orders and consult orders; where the start date of the order is 45 days before the date of the Encounter or 45 days after the date of theEncounter. The data comes from all [facility]. Test Date/Time Test Type Test Details Facility Name Jan 25, 2025 08:56 AM Consult Order COMMUNITY [facility]ARE-STL DENTAL SPEC Cons Safety And Health Manager's Choice [facility] Feb 28, 2025 12:00 AM Laboratory - Chemi stry Order BASIC METABOLIC PANEL GREEN LI/HEP BLD/PLAS PLASMA SP [facility] Lab Results: +/- 30 days of the [...] Interpretation Reference Range Specimen Type Comment Feb 12, 2025 08:43 AM [facility] URINE DRUG SCREEN (STL) URINE Specimen Type: URINE Comment: The cut-off value for Fentanyl was laboratory developed and its performance characteristics confirmed by the [facility] laboratory thru method comparison with reference laboratory and medication chart review. The laboratory is regulated under CLIA as qualified to perform high-complexity testing. Fentanyl is used for clinical purposes in conjunction with other laboratory tests. Ordering Provider: HENNY MARLEY Report Released Date/Time: Feb 01, 2025 12:11 PM Reporting Lab: [address] [address] Performing Lab: [address] [address] ETHANOL <10 mg/dL 0-9 AMPHET/METHAMPHETAMINE Negative ng/mL COCAINE METABOLITES Negative ng/mL BENZODIAZEPINES (STL) Negative ng/mL CANNABINOIDS Negative ng/mL METHADONE Negative ng/mL OPIATES Negative ng/mL CREATININE URINE/OTHERS 88.9 mg/dL 63-16 6 OXYCODONE ([id number]) Negative ng/mL BUPRENORPHINE (STL-PB-MA) Negative ng/mL FENTANYL (STL) Negative ng/mL Feb 12, 2025 08:43 AM [facility] URINALYSIS (STL-PB) URINE Specimen Type: URIN E No comment entered. Ordering Provider: HENNY MARLEY Report Released Date/Time: Feb 01, 2025 12:11 PM Reporting Lab: [address] [address] Performing Lab: [address] [address] URINE COLOR Light-Yellow Yellow U.BILIRUBIN Negative mg/dL Negative U.PH 6.5 5.0-8.0 URINE WBC/HPF 1 /[HPF] 0-5 URINE RBC/HPF <1 /[HPF] 0-5 APPEARANCE Clear Clear U.NITRITE Negative mg/dL Negative URN.GLUCOSE 1000 mg/dL H Negative URN.PROTEIN 100 mg/dL H URN.UROBILINOGEN Normal mg/dL Normal URN.BLOOD Negative mg/dL Negative-Trace URN.KETONES Negative mg/dL Negative-Trac e URN.LEUK.EST. Negative mg/dL Negative-Tr jackie URN.SPECIFIC GRAVITY 1.046 H Feb 12, 2025 08:24 AM [facility] QUANTIFERON-TB,4 TUBE BLOOD Specimen Type: BL OOD Comment: Negative test result. M. tuberculosis complex infection unlikely. The Nil tube value reflects the background interferon gamma immune response of the patient's blood sample. This value has been subtracted from the patient's displayed TB and Mitogen results. Lower than expected results with the Mitogen tube prevent false-negative Quantiferon readings by detect- ing a patient with a potential immune suppressive condition and/or suboptimal pre-analytical specimen handling. The TB1 Antigen tube is coated with the M. tuberculosis-specific antigens designed to elicit responses from TB antigen primed CD4+ helper T-lymphocytes. The TB2 Antigen tube is coated with the M. tuberculosis-specific antigens designed to elicit responses from TB antigen primed CD4+ helper and CD8+ cytotoxic T-lymphocytes. For additional information, please refer to http://[email or web address]/faq/QOQ613 (This link is being provided for information/ educational purposes only.) Test Performed by [facility], [employer] [facility], [address] [place] [address] Jah Wade M.D., Ph.D., Director of Laboratories , [place] [id number] Ordering Provider: HENNY MARLEY Report Released Date/Time: Feb 01, 2025 12:11 PM Reporting Lab: [facility] [address] [facility] [address] Performing Lab: [facility] [address] [facility] .NIL - QUANTIFERON 0.03 [IU]/mL .MITOGEN-NIL 7.90 [IU]/mL .QUANTIFERON NEGATIVE NEGATIVE .TB1-NIL 0.00 [IU]/mL .TB2-NIL <0.00 [IU]/mL Feb 12, 2025 08:24 AM [facility] NICOTINE AND METABOLITES SERUM Specimen Type: SERUM Comment: Reference Ranges(ng/mL): Non-Smoker Active Tobacco User < or = to 4 2-10 Reference Ranges(ng/mL): Non-Smoker Active Tobacco User < or = to 8 16-145 This test was developed and its analytical performance characteristics have been determined by [employer] [place], [place]. It has not been cleared or approved by the U.S. Food and Drug Administration. This assay has been validated pursuant to the CLIA regulations and is used for clinical purposes. Test Performed by [facility], [employer] [facility], [address] [place] [address] Jah Wade M.D., Ph.D., Director of Laboratories , CLIA [id number] Ordering Provider: HENNY MARLEY Report Released Date/Time: Feb 01, 2025 12:11 PM Reporting Lab: [place] [id number] [facility] [address] Performing Lab: [address] NICOTINE <2 ng/mL COTININE <2 ng/mL Feb 12, 2025 08:24 AM [facility] CMV(IGG & IGM)(STL) SERUM Specimen Type: SERU M No comment entered. Ordering Provider: HENNY MARLEY Report Released Date/Time: Feb 01, 2025 12:11 PM Reporting Lab: [facility] [address] [facility] [address] Performing Lab: [address] [address] CMV-IGG-EIA POSITIVE NEGATIVE CMV-IGM-EIA NEGATIVE NEGATIVE Feb 12, 2025 08:24 AM [facility] HEPATITIS B SURFACE AB PNL SERUM Specimen Typ e: SERUM Comment: The listed sex of this patient may not be a typical indication for this test. Therefore, reference ranges or interpretive criteria listed may not be valid. Clinical correlation suggested. Ordering Provider: HENNY MARLEY Report Released Date/Time: Feb 01, 2025 12:11 PM Reporting Lab: [facility] [address] [facility] [address] Performing Lab: [place] [address] [facility] [address] HEP B Surface Ab-HBsAB (STL) Nonreactive m[IU]/m L Nonreactive Feb 12, 2025 08:24 AM [facility] HEP HB S Ag (AUSRIA) (STL) SERUM Specimen Typ e: SERUM Comment: The listed sex of this patient may not be a typical indication for this test. Therefore, reference ranges or interpretive criteria listed may not be valid. Clinical correlation suggested. Ordering Provider: HENNY MARLEY Report Released Date/Time: Feb 01, 2025 12:11 PM Reporting Lab: [place] [address] [address] [facility] [address] Performing Lab: [place] [address] [facility] [address] HEP HB S Ag (AUSRIA) (STL) Nonreactive N onreactive Feb 12, 2025 08:24 AM [facility] HEP C Ab HCV Ab (STL) SERUM Specimen Type: SE RUM Comment: The listed sex of this patient may not be a typical indication for this test. Therefore, reference ranges or interpretive criteria listed may not be valid. Clinical correlation suggested. Ordering Provider: HENNY MARLEY Report Released Date/Time: Feb 01, 2025 12:11 PM Reporting Lab: [place] [address] [facility] [address] Performing Lab: [address] [address] HEP C Ab HCV Ab (STL) Nonreactive Nonrea ctive Feb 12, 2025 08:24 AM [facility] HIV COMBO FOURTH GENERATION (STL) SERUM Speci men Type: SERUM No comment entered. Ordering Provider: HENNY MARLEY Report Released Date/Time: Feb 01, 2025 12:11 PM Reporting Lab: [facility] [address] [facility] [address] Performing Lab: [facility] [address] [place] [address] HIV COMBO FOURTH GENERATION (STL) Nonreactive Nonreactive Feb 12, 2025 08:24 AM [facility] ETHANOL PLASMA Specimen Type: PLASM A Comment: No hemolysis noted. Ordering Provider: HENNY MARLEY Report Released Date/Time: Feb 01, 2025 12:11 PM Reporting Lab: [address] [address] Performing Lab: [address] [address] ETHANOL <10 mg/dL 0-9 Feb 12, 2025 08:24 AM [facility] PT/INR NEW (STL-MA) PLASMA Specimen Type: PLAS MA No comment entered. Ordering Provider: HENNY MARLEY Report Released Date/Time: Feb 01, 2025 12:11 PM Reporting Lab: [place] [address] [facility] [address] Performing Lab: [address] [address] PROTIME 14.8 s H 9.4-12.5 INR VALUE 1.3 {INR} Feb 12, 2025 08:24 AM [facility] RAPID PLASMA REAGIN (RPR) SERUM Specimen Type : SERUM No comment entered. Ordering Provider: HENNY MARLEY Report Released Date/Time: Feb 01, 2025 12:11 PM Reporting Lab: [address] [address] Performing Lab: [address] [address] RAPID PLASMA REAGIN (RPR) Non-Reactive N ONREACTIVE Feb 12, 2025 08:24 AM [facility] TSH W/ REFLEX FT4 (STL) PLASMA Specimen Type: PLASMA No comment entered. Ordering Provider: HENNY MARLEY Report Released Date/Time: Feb 01, 2025 12:11 PM Reporting Lab: [address] [address] Performing Lab: [address] [address] TSH 1.316 u[IU]/mL 0.47-5 Feb 12, 2025 08:24 AM [facility] PROST. SPECIFIC AG.(PB-STL) SERUM Specimen Ty pe: SERUM Comment: The listed sex of this patient may not be a typical indication for this test. Therefore, reference ranges or interpretive criteria listed may not be valid. Clinical correlation suggested. Ordering Provider: HENNY MARLEY Report Released Date/Time: Feb 01, 2025 12:11 PM Reporting Lab: [place] [address] Performing Lab: [address] [address] PROST. SPECIFIC AG.(PB-STL) 0.347 ng/mL 0-4 Feb 12, 2025 08:24 AM [facility] COMPREHENSIVE METABOLIC PANEL PLASMA Specimen Type: PLASMA Comment: No hemolysis noted. Ordering Provider: HENNY MARLEY Report Released Date/Time: Feb 01, 2025 12:11 PM Reporting Lab: [address] [address] Performing Lab: [address] [address] CREATININE 1.36 mg/dL H 0.7-1.3 UREA NITROGEN 29.3 mg/dL H 9.0-25.0 GLUCOSE 122 mg/dL H 72-99 SODIUM 135 meq/L L 136-145 POTASSIUM 4.2 meq/L 3.5-5 CHLORIDE 99 meq/L 98-107 CARBON DIOXIDE 27 meq/L 22-31 CALCIUM 9.8 mg/dL 8.4-10.4 PROTEIN 6.4 g/dL 6-8.6 ALBUMIN 4.1 g/dL 3.4-5 TOTAL BILIRUBIN 0.9 mg/dL 0.2-1.2 ALKALINE PHOSPHATASE 211 U/L H 40-150 AST/SGOT 25 U/L 5-34 ALT/SGPT 29 U/L 8-40 EGFR (CKD-EPI 2020) 59.6 >60 Feb 12, 2025 08:24 AM [facility] CBC BLOOD Specimen Type: BLOOD No comment entered. Ordering Provider: HENNY MARLEY Report Released Date/Time: Feb 01, 2025 12:11 PM Reporting Lab: [facility] [address] [facility] [address] Performing Lab: [address] [address] WBC 7.2 10*3/uL 3.6-11.2 RBC 5.22 10*6/uL 4.10-5.70 HGB 14.2 g/dL 13.1-16.8 HCT 44.7 38.2-48.4 MCV 85.6 fL 80.0-100.0 MCH 27.2 pg 27.0-34.0 MCHC 31.8 g/dL L 33.0-36.0 PLT 236 10*3/uL 150-400 MPV 10.8 fL 7.5-11.2 RDW 13.2 11.8-15.1 LYMPHOCYTES, AUTO % 11 MONOCYTES, AUTO % 10 NEUTROPHILS, AUTO % 78 EOSINOPHILS, AUTO % 1 BASOPHILS, AUTO % 0 LYMPHOCYTES, ABSOLUTE 0.79 10*3/uL 0.77- 4.50 MONOCYTES, ABSOLUTE 0.73 10*3/uL 0.19-0. 80 NEUTROPHILS, ABSOLUTE 5.60 10*3/uL 2.10- 8.00 EOSINOPHILS, ABSOLUTE 0.08 10*3/uL 0.00- 0.60 BASOPHILS, ABSOLUTE 0.02 10*3/uL 0.00-0. 20 Feb 12, 2025 08:08 AM [facility] I-STAT, CREAT ([facility]) BLOOD Specimen Type: B LOOD Comment: Test Performed by: [id number] Meter #: [id number] Ordering Provider: ADAMA CHACON Report Released Date/Time: Feb 12, 2025 08:10 AM Reporting Lab: [address] [address] Performing Lab: [facility] [address] [facility] [address] I-STAT, CREAT (STL-MA) 1.6 mg/dL H 0.7-1.3 Social History: Smoking Status (Most current) and Tobacco Use (All prior to encounter date) This section includes the most current, and the historical, smoking and tobacco- related health factors from the [place] facility where the Encounter took place. Current Smoking Status This section includes the most current smoking, or tobacco-related health factor, from the [place] facility where the Encounter took place. Date/Time Current Smoking Status Comment Khurram reyes Feb 10, 2024 06:16 PM ORYX ADMIT TOBACCO SCREEN NO [facility] Advance Directives: All historical and current Section Date Range: From patient's date of to the date document was created. This section includes ALL of a patient's completed or amended [place] Advance and Rescinded Directives. The entries below indicate that a directive exists for the patient, but an actual copy is not included with this document. The data comes from all [place] facilities. Date Advance Directives Provider Source Feb 16, 2024 ADVANCE DIRECTIVE GINA BRIGHT [facility] Radiology Reports: +/- 30 days of the [...] the Encounter. The data comes from all [place] treatment facilities. Date/Time Radiology Report Provider Source Feb 12, 2025 08:[address] THORAX, DIAGNOS TIC, W/CONTRAST: GOSIA ZUNIGA [id number] -[id number] M Exm Date: FEB 12, 2025@08:01 Req Phys: HENNY MARLEY Loc: [facility]CARDIOLOGY [facility] (Req'g Lo Img Loc: [facility]-CT IMAGING [facility] Service: Unknown [facility] [address] [place] [address] (Case [id number] COMPLETE) CT THORAX, DIAGNOSTIC, W/CONTRAS(CT Detailed) CPT:42058 Contrast Media : Non-ionic Iodinated Reason for Study: HF advanced therapies work-up Clinical History: Responsible Attending: Henny Marley PA-C Attending Contact Number: [phone] Resident Contact Number: HF advanced therapies work-up Allergies listed in CPRS chart: Patient has answered NKA Creatinine: CREATININE 1.42 H mg/dL 09/18/2024 06:55 /eGFR: STL EGFR (within one year). CREATININE 1.42 mg/dL H (09/18/24 06:55) Wt: 177.8 lb [80.65 kg] (01/09/2025 07:40) History of: Renal failure, chronic or acute renal disease: YES Report Status: Verified Date Reported: FEB 12, 2025 Date Verified: FEB 12, 2025 [place] E-Sig:/ES/CHUY BANKS Report: EXAM: CT chest and abdomen and pelvis with intravenous contrast. HISTORY: HF advanced therapies work-up TECHNIQUE: Axial CT images were obtained through the chest and abdomen and pelvis with intravenous contrast. The radiation exposure as measured by the dose length product (DLP) is 633 mGy-cm. COMPARISON: Previous studies including 03/01/2023. FINDINGS: HEART: Right heart enlargement again noted. Small coronary artery calcifications. MEDIASTINUM: Large thyroid nodule again noted. No mediastinal, hilar, or axillary lymphadenopathy or mass. LUNGS: Mild coarse appearing interstitial infiltrates not significantly changed. This could represent combination of chronic change and mild pulmonary edema. There are small pleural effusions. No pneumothorax. CHEST WALL: Intact. ABDOMEN: Inhomogeneous enhancement of the liver. Surgical clips consistent with prior cholecystectomy. 1.3 cm nodule within the right adrenal gland. Slight nodularity left adrenal gland. These normal. Spleen normal. No abdominal mass or adenopathy. Tiny amount of free fluid within the pelvis. Impression: Mild interstitial infiltrates and pleural effusions. Inhomogeneous enhancement of the liver may be related to right heart function or possibly diffuse disease. New adrenal nodules. Consider metastatic disease. Post cholecystectomy. Tiny amount of free fluid within the pelvis. RR Primary Interpreting Staff: CHUY BANKS, Staff Physician ([place]) /CHUY RENDON [facility] Feb 12, 2025 08:[address] ABD PEL W/CONT & 3D: GOSIA ZUNIGA [id number] -1965 M Exm Date: FEB 12, 2025@08:00 Req Phys: HENNY MARLEY Loc: [facility]ARDIOLOGY [facility] (Req'g Lo Img Loc: [facility]CT IMAGING [facility] Service: Unknown [facility] [address] [place] [address] (Case [id number] COMPLETE) CT ABDOMEN AND PELVIS W/CONTRAST (CT Detailed) CPT:31377 Contrast Media : Non-ionic Iodinated Reason for Study: HF advanced therapies work-up Clinical History: Responsible Attending: Henny Marley PA-C Attending Contact Number: [phone] Resident Contact Number: HF advanced therapies work-up Allergies listed in CPRS chart: Patient has answered NKA Creatinine:CREATININE 1.42 H mg/dL 09/18/2024 06:55 /eGFR: STL EGFR (within one year). CREATININE 1.42 mg/dL H (09/18/24 06:55) Wt: 177.8 lb [80.65 kg] (01/09/2025 07:40) History of: Renal failure, chronic or acute renal disease: YES Report Status: Verified Date Reported: FEB 12, 2025 Date Verified: FEB 12, 2025 [place] E-Sig:/LUAN/CHUY BANKS Report: EXAM: CT chest and abdomen and pelvis with intravenous contrast. HISTORY: HF advanced therapies work-up TECHNIQUE: Axial CT images were obtained through the chest and abdomen and pelvis with intravenous contrast. The radiation exposure as measured by the dose length product (DLP) is 633 mGy-cm. COMPARISON: Previous studies including 03/01/2023. FINDINGS: HEART: Right heart enlargement again noted. Small coronary artery calcifications. MEDIASTINUM: Large thyroid nodule again noted. No mediastinal, hilar, or axillary lymphadenopathy or mass. LUNGS: Mild coarse appearing interstitial infiltrates not significantly changed. This could represent combination of chronic change and mild pulmonary edema. There are small pleural effusions. No pneumothorax. CHEST WALL: Intact. ABDOMEN: Inhomogeneous enhancement of the liver. Surgical clips consistent with prior cholecystectomy. 1.3 cm nodule within the right adrenal gland. Slight nodularity left adrenal gland. These normal. Spleen normal. No abdominal mass or adenopathy. Tiny amount of free fluid within the pelvis. Impression: Mild interstitial infiltrates and pleural effusions. Inhomogeneous enhancement of the liver may be related to right heart function or possibly diffuse disease. New adrenal nodules. Consider metastatic disease. Post cholecystectomy. Tiny amount of free fluid within the pelvis. RR Primary Interpreting Staff: CHUY BANKS, Staff Physician ([place]) /CHUY RENDON [facility] Feb 12, 2025 07:19 AM US ABDOMEN LIMITED W/BLOOD FLOW DOPPLER: GOSIA ZUNIGA [id number] -1965 M Exm Date: FEB 12, 2025@07:19 Req Phys: RAJIHENNY Diamond Loc: [facility] (Req'g Lo Img Loc: [facility]-ULTRASOUND [facility] Service: [address] [address] (Case [id number] COMPLETE) US ABDOMEN LTD, SINGLE ORG OR BECKY(US Detailed) CPT:44382 Reason for Study: HF advanced therapies work-up (Case 914 COMPLETE) US BLOOD FLOW ABD/RENAL (LTD) (US Detailed) CPT:17564 Clinical History: Organ to Image: RUQ Reason for exam: HF advanced therapies work-up Report Status: Verified Date Reported: FEB 12, 2025 Date Verified: FEB 12, 2025 [place] E-Sig:/ES/ASHLEE RAPHAEL Report: Case [id number], [id number]. US ABDOMEN LTD, SINGLE ORG OR QUADRANT, US BLOOD FLOW ABD/RENAL (LTD). Technique: Real-time ultrasound examination of the abdomen was obtained in multiple projections using grayscale and Doppler ultrasound Comparison: None History: HF therapy workup Findings: Pancreas: Incompletely visualized. The visible portions of the pancreas appear normal. Liver: The hepatic echotexture and echogenicity are normal. No focal liver masses are identified. The liver measures 18.8 cm in length. Gallbladder: Surgically absent. Negative Davis's sign. Biliary system: No dilatation of the intrahepatic biliary tree is seen. The common duct is within normal limits measuring 4 mm. Doppler evaluation: The main portal vein is patent with hepatopedal flow measuring 17.5 cm/s. Main portal vein diameter measures 1.0 cm. The hepatic veins are patent. Impression: Unremarkable right upper quadrant ultrasound examination. Ashlee Owensby, have reviewed the images and report and concur with these findings. Primary Interpreting Staff: ASHLEE RAPHAEL, RADIOLOGIST ([place]) Primary Interpreting Resident: VIJI JOHNSON, Resident Physician /ASHLEE [facility] Encounter Notes: All associated encounter notes This section contains the clinical notes associated to the Encounter. Date/Time Encounter Note(s) Provider Source Jan 15, 2025 02:49 PM SOCIAL WORK ASSESS MENT FOR TRANSPLANT CANDIDATE NOTE: LOCAL TITLE: CLINICAL SOCIAL WORK EVALUATION FOR TRANSPLANT CAND STANDARD TITLE: SOCIAL WORK ASSESSMENT FOR TRANSPLANT CANDIDATE DATE OF NOTE: JAN 15, 2025@14:49 ENTRY DATE: JAN 15, 2025@14:50:15 AUTHOR: MEGHAN DEAN COSIGNER: URGENCY: STATUS: COMPLETED SOCIAL WORK ASSESSMENT FOR TRANSPLANT CANDIDATES Heart Transplant DATE OF EVALUATION: Dec [facility]: Dr. Riley Vergara MD/Carlos Vargas [place] Change Control Coordinator ADDRESS: [address] [place] [address]. 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 [phone] I. IDENTIFYING INFORMATION NAME: GOSIA ZUNIGA SSN: [id number] CURRENT ADDRESS: [address] [place] [id number] PHONE (HOME): : 1965Apr AGE: 59 HOUSING: resides with his in a single family home in [place], [place] PATIENT LIVES WITH: He lives with his Zeynep Terrazas) and his sister in law, Rosie Verdin. NAME OF SUPPORT PERSON PRESENT AT TIME OF THIS EVALUATION: Zeynep (Roni)/) COMMENTS/CONCERNS: --- HISTORY: [place] [id number] DUTY STATION(S): [employer], [employer], [place], [place], [place], and [place] DIS[place]: 100% [place] CONDITION(S): Facial Scars, Tinnitus, Migraine Headache, Arteriosclerotic heart failure II. 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 FINANCIAL RESOURCES MONTHLY INCOME: $ 9,000.00 DEBTS: $ 2,000.00 POTENTIAL SOURCES OF ADDITIONAL INCOME: [place] receives 100% service connection [facility] HEALTH INSURANCE COVERAGE: insurance IV. MARITAL/FAMILY HISTORY SIGNIFICANT OTHER: Zeynep Zuniga, , 30 years PARENTS: n/a SIBLINGS: Zeynep's sister, Rosie, lives with them. 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 WILLINGNESS TO PARTICIPATE IN THE TRANSPLANT PROCESS: Gosia is very willing and motivated to participate in the heart transplant process. CURRENT/PAST FAMILY ALCOHOL/DRUG USE: Gosia denies any history of drug or alcohol abuse. He disclosed his history of drinking 6 packs of beer per week in his past before he was dx with heart issues. Currently, he denies drinking alcohol at all. HEALTH STATUS: stable/outpatient V. SOCIAL SUPPORT PRIMARY SUPPORT PERSON: NAME: Zeynep Zuniga () ADDRESS: [address] [place] [id number] AGE: 59 PHONE (HOME): LENGTH OF TIME AVAILABLE: 13/06, she works as a CHILD CARE ASSOCIATE ABILITY TO ACCOMPANY/TRANSPORT THE PATIENT TO/FROM APPOINTMENTS: Yes, often because she works in the evenings and she is off of work every other Tuesdays/ evenings (available during the day hours with flexible hours, as needed). ABILITY TO ASSIST WITH MEDICATIONS: is able to manage his medications, he currently manages his own medications. ABILITY TO ENSURE COMPLIANCE: is able to assist with Gosia's adherence to his treatment plan. USE OF ALCOHOL/DRUGS: No use or history of drugs or alcohol. ADDITIONAL SUPPORT PERSON: NAME: Rosie Devlin ([id number]) ADDRESS: same AGE: unknown PHONE (HOME): LENGTH OF TIME AVAILABLE: As needed, she works flexible hours part-time ABILITY TO ACCOMPANY/TRANSPORT THE PATIENT TO/FROM APPOINTMENTS: no (Gosia's adult son is able to transport Gosia to his appts if his is not available) ABILITY TO ASSIST WITH MEDICATIONS: Yes, Rosie is able to assist with medications if needed. ABILITY TO ENSURE COMPLIANCE: yes, Rosie is able to assist with Gosia's assistance with adherence to his medical treatment plan. USE OF ALCOHOL/DRUGS: No use of drugs/alcohol. COMPLETED ADVANCE DIRECTIVE FORMS: Yes, see Advance Directive in CPRS [facility] [place] LOCATED[facility] [place] [facility] [place] ANY POTENTIAL LIVING DONORS? n/a . BACKGROUND CLINICAL INFORMATION DIAGNOSIS: Arteriosclerotic heart disease, heart failure with reduced ejection fraction, AL Amyloidosis ONSET OF DISEASE: per Gosia, 10/28/2023 HOW HAS IT AFFECTED PATIENT'S LEVEL OF FUNCTIONING/ACTIVITY LEVEL: shortness of breath, fatigue, low energy, stomach pain, GI system impacted, walks/ambulates slowly, able to walk at least 1 mile slowly, unable to walk daily for exercise. WHAT IS PT'S UNDERSTANDING OF TRANSPLANT PROCESS? minimum information, he found information on youtube. He understands that it is a long recovery period. HAS ANYONE DISCUSSED THE PROCESS WITH THE PATIENT? No, not in detail he has not discussed the transplant process with any providers at this point. 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 MEDICATIONS:Active Outpatient Medications Status 1) DROXIDOPA 300MG ORAL [...] * - Midodrine 10 TID * - [place] 25 * - Torsemide 20mg qDay DIET: low sodium SOURCE(S) REVIEWED: CPRS and interview with VII. SUBSTANCE USE/ABUSE ALCOHOL: denies current use, but history of drinking a 6 pack at least one time per week before his onset of heart disease. DENIES HISTORY OF DRUGS OR TOBACCO USE. VIII. MENTAL HEALTH PAST AND PRESENT TREATMENT/HOSPITALIZATIONS: none EMOTIONAL STATUS (Anxiety, Depression): NONE PAST ABUSE (Physical, Sexual): n/a MENTAL STATUS (Orientation, Memory, Intelligence, Mood): within normal limits IX. LEGAL ISSUES DUIs: NO LEGAL ISSUES OR HISTORY WITH DUIs FCI/ASSISTED TIME (CURRENT/PENDING): NO HISTORY WITH FCI/ASSISTED GAMBLING ISSUES: NO HISTORY OF GAMBLING OTHER: --- X. SOCIAL ACTIVITIES HOBBIES: dancing, concerts, ball games MANDAEN PREFERENCE/SPIRITUALITY: Caodaism with no limits on medical treatments. INTERPERSONAL RELATIONSHIPS (Group Activities, Friendships, Co-Workers): , friends from work XI. ASSESSMENT/PLAN EXTRUDER OPERATOR VERTICAL'S OVERALL ASSESSMENT: FURTHER TREATMENT NEEDS: Gosia is interested in learning more about the process of the heart transplant process, and he is 100% both motivated in becoming a transplant candidate. RECOMMENDATIONS: As a result of both, interviewing and his , this sr. social media & mobile manager recommends that Gosia Zuniga becomes a heart transplant candidate. ASSESSMENT-PATIENT'S CHEMICAL DEPENDENCY: Gosia denies any history of drug use, but he did drink beer casually before learning about his heart condition. Currently, he denies using any drug, alcohol or tobacco products. MENTAL HEALTH: No history of mental health diagnosis or conditions. SOCIAL SUPPORT: His , sister in law and his adult son are very strong supports for Gosia currently and are committed to maintain their support during his transplant recovery. TRANSPLANT READINESS: Gosia is hopeful, ready and motivated to endure the process should he become an official heart transplant candidate and recipient. COPING SKILLS: Gosia will rely on his christi and the support of his family during his transplant process and recovery. /luan/ Meghan Dean LCSW LCSW, Specialty Medicine SW Signed: 01/17/2025 11:13 Receipt Acknowledged By: 01/17/2025 12:04 /es/ Henny Marley PA-C Cardiology Physician Boxing Trainer 01/17/2025 13:03 /es/ ABRIL VERGARA MD PHD STAFF PHYSICIAN AND CHIEF OF HEART FAILURE [facility]
--- OUTSIDE RECORDS SUMMARY | 2025-06-24 11:48 | XMS_ITS | Encounter Summary ---
Author Organization [facility] Address [address] [place] [address] Phone Care Team Providers Care Environmental Services Assistant Name Role Phone Anuel Vargas Primary Care Provider [phone] Reason for Referral * Procedure (Routine) - Closed Specialty Diagnoses / Procedures Referred By Ericka amaya Referred To Contact Diagnoses ILD (interstitial lung disease) ([facility]) Procedures Pulmonary Function Test -[facility]FT [facility]- [facility]; Oxygen Assessment Titration, Spirometry, Spirometry with Bronchodilator, ABG, Lung Volumes, DLCO; Pleth with Airway Resistance; Room Air ABG; Spirometry Kathy Hewitt MD [address] [place] [address] Phone: tel: fax: Referral ID Status Reason Start Date Expiration Date Visits Re quested Visits Authorized [id number] Closed 07/05/2023 08/03/2024 1 1 Reason for Visit * Procedure (Routine) - Closed Specialty Diagnoses / Procedures Referred By Ericka amaya Referred To Contact Diagnoses ILD (interstitial lung disease) ([facility]) Procedures Pulmonary Function Test -[facility]- [facility]; Oxygen Assessment Titration, Spirometry, Spirometry with Bronchodilator, ABG, Lung Volumes, DLCO; Pleth with Airway Resistance; Room Air ABG; Spirometry Kathy Hewitt MD [address] [address] Phone: tel: fax: Referral ID Status Reason Start Date Expiration Date Visits Re quested Visits Authorized [id number] Closed 07/05/2023 08/03/2024 1 1 Encounter Details Date Type Department Care Team (Latest Contact Info) Description 07/19/2023 7:26 AM CDT Hospital Encounter [facility] PFT Lab [address] [facility] [address] [place] [address] ILD (interstitial lung disease) (HCC) Social History Tobacco Use Types Packs/Day Years Used Date Smoking Tobacco: Never Passive Smoke Exposure: Never Smokeless Tobacco: Never [facility] Utilities Answer Date Recorded In the past 12 months has [employer], gas, oil, or water company threatened [...] any time in the past [address] [facility], were you homeless or living in a halfway (including now)? No 04/10/2025 Personal Safety Answer Date Recorded Have you ever been in or are you currently in a harmful physical or emotional relationship or is someone making you feel afraid or unsafe? 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 Never 04/08/2025 8:18 AM HIEUT Emeli Soler RN Q2: How many drinks [...] 0 04/10/2025 2:50 PM CDT Alexandra Colin, JEWEL BEARING MAKER Not being able to stop or control worrying 0 04/10/2025 2:50 PM CDT Alexandra Colin, JEWEL BEARING MAKER Worrying too much about different things 0 04/10/2025 2:50 PM CDAlexandra Carey, STEVEN Trouble relaxing 0 04/10/2025 2:50 PM CDT Alexandra Marie, JEWEL BEARING MAKER Being so restless that it is hard to sit still 0 04/10/2025 2:50 PM CDAlexandra Carey, JEWEL BEARING MAKER Becoming easily annoyed or irritable 0 04/10/2025 2:50 PM CDT Alexandra Colin, JEWEL BEARING MAKER Feeling afraid as if somethi ng awful might happen 0 04/10/2025 2:50 PM CDT Alexandra Colin LCSW MELONY-7 Total Score 0 04/10/2025 2:50 PM CDT Alexandra Colin JEWEL BEARING MAKER documented as of this encounter Plan of Treatment Upcoming Encounters Date Type Department Care Team (Late st Contact Info) Description 07/01/2025 Hospital Encounter [facility] [place] [address] [address] [place] [address] Dmitry Dean MD [address] [address] Scheduled Procedures Name Priority Associated Diagnoses Date/Ti in ENDOMYOCARDIAL BIOPSY 09652 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 Immunosuppression documented as of this encounter Procedures Procedure Name Priority Date/Time Associated Diagnosis Comments PULMONARY FUNCTION TEST (PFT) Routine 07/19/2023 8:57 AM CDT ILD (interstitial lung disease) (HCC) documented in this encounter Results * Pulmonary Function Test - (07/19/2023 8:57 AM CDT) FVC PRE 2.98 L [facility] FVC %PRE PRED 64 % [facility] FVC POST 3.17 L [facility] FVC %POST PRED 68 % [facility] FEV1 PRE 2.45 L [facility] FEV1 %PRE PRED 68 % [facility] FEV1 POST 2.70 L [facility] FEV1 %POST PRED 75 % [facility] FEV1/FVC PRE 82.2 % [facility] FEV1/FVC POST 85.3 % [facility] FRC PL PRE 2.64 L [facility] FRC PL %PRE PRED 68 % [facility] RV PRE 1.72 L [facility] RV %PRE PRED 73 % [facility] TLC PRE 4.81 L [facility] TLC %PRE PRED 65 % [facility] DLCO PRE 20.9 ml/min/mmH g [facility] DLCO %PRE PRED 71 % [facility] FIO2 % 21.00 % [facility] PaO2 102.0 mmHg [facility] PaCO2 39.0 mmHg [facility] pH 7.46 [facility] A-aDO2 POC -1.0 mmHg [facility] METHGB % 0.6 % [facility] COHb POC 1.1 % [facility] HCO3 27.7 mEq/L [facility] Anatomical Region Laterality Modality PFT 07/19/2023 7:56 [...] and %HbO2 is age dependent. However, the [facility] Pulmonary Function Laboratory defines hypoxemia as a PO2 <55 or a %HbO2 <89. Narrative 07/20/2023 10:52 AM CDT Table formatting from the original result was not included. [facility] Division of Pulmonary & Critical Care Medicine [address] [place] [address]; [place] [address]; [place] [address]; [phone] Pulmonary Function Laboratory Pulmonary Stress Test Simple/Oxygen [...] Work [distance (m) x body wt (kg)]: 17842 kg.m (normal >60,000kg.m) Oxygen required to maintain SpO2 greater than 90% during six minutes of walkin L/M Comments: [id number] STANDARDS- NO STOPS Interpretation: Breathing room air, [...] with the written final report. PFT performed at:->[facility] Adult PFT Lab- [facility] Procedure:->Oxygen Assessment Titration Procedure:->Spirometry Procedure:->Spirometry with Bronchodilator [...] (interstitial lung disease) (HCC) Postinflammatory pulmonary fibrosis Immunosuppression- Primary 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 documented in this encounter Additional Health Concerns Infection Onset Date Last Indicated Resolved Time COVID: Suspected 11/27/2023 11/27/2023 11/27/2023 3:18 PM DISPATCHER MOTOR VEHICLE RSV, droplet 11/27/2023 11/27/2023 12/04/2023 3:05 AM DISPATCHER MOTOR VEHICLE Ring Surveillance: C. auris Comment:04/15/25: Negative C. Auris iraida. Leelee Schuler 04/17/2025 This flag is used [...] documented as of this encounter Care Teams Environmental Services Assistant Relationship Specialty Start Date End Date Anuel Vargas DO PCP - General Internal Medicine 10/19/22 documented as of this encounter
--- OUTSIDE RECORDS SUMMARY | 2025-06-24 11:49 | XMS_ITS | Encounter Summary ---
Author Name [facility] [place] [facility] [place] Address [address] [place] [address] Care Team Providers Care Tag And Label Cutter Name Role Phone ADAMA CHACON Primary Care [...] Kennedy's Name Patient's Relationship to Policy Kennedy [facility] 2024 [facility] Nov 21, 2024 [facility] [id number] [phone] Elzbieta ANN PATIENT Selected Encounter This section includes the information on record at [place] for the Encounter. Date/Time Encounter Type Encounter Description Reason Provider Source Aug 20, 2024 11:59 AM Outpatient Encounter ADMIN PAT ACTIVTIES (MASNONCT) ADAMA CHACON IHBreana Encounter Template Text not used by [place] Plan of Treatment: Future Appointments (+ 6 [...] 20 appointments. The data comes from all [facility] Appointment Date/Time Appointment Type Appointme nt Facility Name Sep 18, 2024 07:00 AM AMBULATORY - NONE [facility] Sep 18, 2024 07:15 AM AMBULATORY - MEDICINE [facility] Sep 18, 2024 12:00 PM AMBULATORY - MEDICINE [facility] Oct 27, 2024 12:11 PM AMBULATORY - MEDICINE [facility] Jan 09, 2025 08:00 AM AMBULATORY - MEDICINE [facility] Jan 09, 2025 08:30 AM AMBULATORY - MEDICINE [facility] Jan 17, 2025 09:00 AM AMBULATORY - MEDICINE [facility] Jan 22, 2025 07:45 AM AMBULATORY - SURGERY [facility] Jan 25, 2025 07:30 AM AMBULATORY - NONE [facility] Jan 29, 2025 10:00 AM AMBULATORY - MEDICINE [facility] Feb 12, 2025 08:00 AM AMBULATORY - MEDICINE [facility] Feb 12, 2025 08:30 AM AMBULATORY - NONE [facility] Active, Pending, and Scheduled Orders This section includes a listing of several types of active, pending, and scheduled orders, including clinic medications orders, diagnostic test orders, procedure orders and consult orders; where the start date of the order is 45 days before the date of the Encounter or 45 days after the date of theEncounter. The data comes from all [facility] Test Date/Time Test Type Test Details Facility Name Sep 18, 2024 12:00 AM Laboratory - Blood Bank Order TYPE & SCREEN - LAB BLOOD SP [facility] Sep 26, 2024 12:00 AM Laboratory - Chemi stry Order BASIC METABOLIC PANEL GREEN LI/HEP BLD/PLAS PLASMA SP [facility] Lab Results: +/- 30 days of the encounter This section includes the Chemistry and Hematology Lab Results on record with [place] for the patient. Radiology Reports and Pathology Reports are provided separately, in subsequent sections. Lab Results This section contains the Chemistry/Hematology Results that were resulted 30 days before or 30 daysafter the date of the Encounter. Date/Time Source Result Type Result - Unit Interpretation Reference Range Specimen Type Comment Sep 18, 2024 08:40 AM [facility] POC AVOX PANEL BLOOD Specimen Type: BLOOD Comment: Test Performed by: [id number] Meter #: [id number] Ordering Provider: ADAMA CHACON Report Released Date/Time: Sep 18, 2024 09:03 AM Reporting Lab: [address] [address] Performing Lab: [address] [address] POC AVOX O2HB 75.8 L 92-100 POC [place]OX THB 14.7 g/dL 13.1-16.8 Sep 18, 2024 08:38 AM [facility] POC [place] PANEL BLOOD Specimen Type: BLOOD Comment: Test Performed by: [id number] Meter #: [id number] Ordering Provider: ADAMA CHACON Report Released Date/Time: Sep 18, 2024 09:00 AM Reporting Lab: [address] [address] Performing Lab: [address] [address] POC [place]OX O2HB 69.7 L 92-100 POC [place]OX THB 14.9 g/dL 13.1-16.8 Sep 18, 2024 08:37 AM [facility] POC AVOX PANEL BLOOD Specimen Type: BLOOD Comment: Test Performed by: [id number] Meter #: [id number] Ordering Provider: ADAMA CHACON Report Released Date/Time: Sep 18, 2024 08:59 AM Reporting Lab: [address] [address] Performing Lab: [address] [address] POC AVOX O2HB 62.7 L 92-100 POC AVOX THB 14.9 g/dL 13.1-16.8 Sep 18, 2024 08:35 AM [facility] POC AVOX PANEL BLOOD Specimen Type: BLOOD Comment: Test Performed by: [id number] Meter #: [id number] Ordering Provider: ADAMA CHACON Report Released Date/Time: Sep 18, 2024 08:58 AM Reporting Lab: [address] [address] Performing Lab: [address] [address] POC [place]OX O2HB 61.3 L 92-100 POC [place]OX THB 15.2 g/dL 13.1-16.8 Sep 18, 2024 06:55 AM [facility] PT/INR NEW (STL-MA) PLASMA Specimen Type: PLAS MA No comment entered. Ordering Provider: BARBI STOKES Report Released Date/Time: Aug 23, 2024 02:43 PM Reporting Lab: [address] [address] Performing Lab: [address] [address] PROTIME 20.6 s H 9.4-12.5 INR VALUE 1.9 {INR} Sep 18, 2024 06:55 AM [facility] BASIC METABOLIC PANEL PLASMA Specimen Type: PL ASMA Comment: No hemolysis noted. Ordering Provider: BARBI STOKES Report Released Date/Time: Aug 23, 2024 02:43 PM Reporting Lab: [address] [address] Performing Lab: [address] [address] CREATININE 1.42 mg/dL H 0.7-1.3 UREA NITROGEN 23.7 mg/dL 9.0-25.0 GLUCOSE 109 mg/dL H 72-99 SODIUM 136 meq/L 136-145 POTASSIUM 4.4 meq/L 3.5-5 CHLORIDE 100 meq/L 98-107 CARBON DIOXIDE 25 meq/L 22-31 CALCIUM 10.0 mg/dL 8.4-10.4 EGFR (CKD-EPI 2020) 56.6 >60 Sep 18, 2024 06:55 AM [facility] CBC BLOOD Specimen Type: BLOOD No comment entered. Ordering Provider: BARBI STOKES Report Released Date/Time: Aug 23, 2024 02:43 PM Reporting Lab: [facility] [address] [facility] [address] Performing Lab: [facility] [address] [place] [address] WBC 7.7 10*3/uL 3.6-11.2 RBC 5.21 10*6/uL [...] 0.60 BASOPHILS, ABSOLUTE 0.03 10*3/uL 0.00-0. 20 Social History: Smoking Status (Most current) and Tobacco Use (All prior to encounter date) This section includes the most current, and the historical, smoking and tobacco- related health factors from the [place] facility where the Encounter took place. Current Smoking Status This section includes the most current smoking, or tobacco-related health factor, from the [place] facility where the Encounter took place. Date/Time Current Smoking Status Comment Khurram reyes Feb 10, 2024 06:16 PM ORYX ADMIT TOBACCO SCREEN NO [facility] Advance Directives: All historical and current Section Date Range: From patient's date of to the date document was created. This section includes ALL of a patient's completed or amended [place] Advance and Rescinded Directives. The entries below indicate that a directive exists for the patient, but an actual copy is not included with this document. The data comes from all [place] facilities. Date Advance Directives Provider Source Feb 16, 2024 ADVANCE DIRECTIVE GINA BRIGHT [facility] Encounter Notes: All associated encounter notes This section contains the clinical notes associated to the Encounter. Date/Time Encounter Note(s) Provider Source Aug 20, 2024 12:00 PM PHYSICIAN LETTERS: LOCAL TITLE: NO CONTACT LETTER STL STANDARD TITLE: PHYSICIAN LETTERS DATE OF NOTE: AUG 20, 2024@12:00 ENTRY DATE: AUG 20, 2024@12:00:45 AUTHOR: HARDIK NEWMAN EXP COSIGNER: URGENCY: STATUS: COMPLETED [facility] [address] [place] [address] AUG 20, 2024 GOSIA ANN [address] [address] Dear Gosia Ann, Thank you for choosing the [facility] as your primary choice for health care. As a partner in your health care, we are attempting to contact you because we have been unsuccessful in reaching you by phone to schedule your clinic appointment. Please call us at [phone] to speak to us regarding making an appointment in the [facility] [place] [facility]. Your good health is important to us. Please contact us within 2 weeks from the date of this letter. If we do not hear from you, we will notify your referring provider and a new referral will be required to schedule an appointment. IMPORTANT: Due to COVID-19 we have greatly expanded our telehealth options, please contact the clinic to inquire about scheduling. Sincerely, HARDIK NEWMAN Invasive Cardiology Bread Dough Mixer GOSIA ANN KARA M [facility]
--- OUTSIDE RECORDS SUMMARY | 2025-06-24 11:49 | XMS_ITS | Encounter Summary ---
Author Name [facility] Organization [facility] [place] Address [address] [place] [address] Care Team Providers Care Foil Cutter Name Role Phone ADAMA CHACON Primary [...] SYSTEM 2024 [facility] Nov 21, 2024 [facility] [id number] 12 Elzbieta ZUNIGA PATIENT Selected Encounter This section includes the information on record at OR for the Encounter. Date/Time Encounter Type Encounter Description Reason Provider Source Dec 26, 2024 10:11 AM Outpatient Encounter CARDIOLOGY ICD-10-CM I50.42 Chronic combined systolic and diastolic hrt fail ISAIAH VERGARA Encounter Template Text not used by [place] Assessments - Encounter Diagnoses This section includes the primary and secondary diagnoses documented for the Encounter. Date/Time Primary/Secondary Diagnosis Diagnosis Name Provider Source Dec 27, 2024 11:38 AM PRIMARY Chronic combined systolic and diastolic hrt fail VERGARAISAIAH [facility] Dec 27, 2024 11:38 AM SECONDARY Contact with and exposure to other hazardous substances VERGARAISAIAH CLINE [facility] Dec 27, 2024 11:38 AM SECONDARY Light chain (AL) amyloidosis VERGARAISAIAH [facility] Dec 27, 2024 11:38 AM SECONDARY Pulmonary fibrosis, unspecified VERGARAISAIAH CILNE [facility] Plan of Treatment: Future Appointments (+ 6 months) and Future Tests (+/- 45 days) The Plan of Treatment section includes future care activities for the patient from all [facility]. This section includes future appointments and future orders which are active, pending or scheduled. Future Appointments This section includes appointments that were scheduled to occur 6 months from the date of the Encounter, up to a maximum of 20 appointments. The data comes from all [facility]. Appointment Date/Time Appointment Type Appointme nt Facility Name Jan 09, 2025 08:00 AM AMBULATORY - MEDICINE [facility] Jan 09, 2025 08:30 AM AMBULATORY - MEDICINE [facility] Jan 17, 2025 09:00 AM AMBULATORY - MEDICINE [facility] Jan 22, 2025 07:45 AM AMBULATORY - SURGERY [facility] Jan 25, 2025 07:30 AM AMBULATORY - NONE [facility] Jan 29, 2025 10:00 AM AMBULATORY - MEDICINE [facility] Feb 12, 2025 08:00 AM AMBULATORY - MEDICINE [facility] Feb 12, 2025 08:30 AM AMBULATORY - NONE [facility] Feb 26, 2025 07:15 AM AMBULATORY - NONE [facility] Mar 12, 2025 03:00 PM AMBULATORY - NONE [facility] March 27, 2025 08:30 AM AMBULATORY - MEDICINE [facility] Active, Pending, and Scheduled Orders This [...] Consult Order [facility] Cons Motorcycle Deliverer's Choice [facility] Social History: Smoking Status (Most current) [...] 06:16 PM ORYX ADMIT TOBACCO SCREEN NO [facility] Advance Directives: All historical and current [...] Feb 16, 2024 ADVANCE DIRECTIVE GINA BRIGHT [facility] Encounter Notes: All associated encounter notes This section contains the clinical notes associated to the Encounter. Date/Time Encounter Note(s) Provider Source Dec 26, 2024 10:11 AM CARDIOLOGY NOTE: LOCAL TITLE: CARDIOLOGY CHART REVIEW [facility] STANDARD TITLE: CARDIOLOGY NOTE DATE OF NOTE: DEC 26, 2024@10:11 ENTRY DATE: DEC 26, 2024@10:11:32 AUTHOR: ABRIL VERGARA COSIGNER: URGENCY: STATUS: COMPLETED NOTE FOR INFORMATIONAL PURPOSES ONLY. PATIENT DID NOT SHOW TO CLINIC. [facility] ADVANCED HEART FAILURE SERVICE: FOLLOW-UP VISIT NOTE PRINCIPAL AND SECONDARY DIAGNOSES: 1. Cardiac amyloid, AL / Lambda subtype - Followd by Aris Chong and Justin Schaffer - Started on Stephanie-CyBorD (11/12) - Seen by [facility] nephrology for kidney involvement (proteinuria) - Seen by [facility] GI for likely GI involvement (Sammi). 2. [facility] with clean cors 3. Atrial fibrillation - On Eliquis A/C 4. HTN 5. Low back pain 6. Gout 7. Lung nodules / pleural thickening of unknown origin. CARE TEAM: 1. ADAMA CHACON INTERVAL HISTORY: We had the pleasure of seeing GOSIA ZUNIGA in the [facility] Advanced Heart Failure Program. As you know, GOSIA ZUNIGA is a 59 year old WHITE MALE with PMH notable for HFmrEF, biopsy proven cardiac amyloid (AL), who we saw in early September. Since that time, he had an endomyocardial biopsy showing cardiac amyloid, and he was referred to Dr. Chong's team for comprehensive amyloid care (Cards, GI, Heme-Onc, Renal). He follows with Justin Flowers, and has undergone treatment with Stephanie- Cybor D, and has been tolerating this treatment well except for some nausea. TODAY: CURRENT OUTPATIENT MEDICATIONS: Active Outpatient Medications (including [...] ACTIVE MOUTH NIGHTLY 11 Total Medications - All cardiac medications were reconciled during the visit. PHYSICAL EXAM: Temperature: 98 F [36.7 C] (10/27/2024 12:16) BP: 118/82 (10/27/2024 12:16) Pulse: 98 (10/27/2024 12:16) Resp: 18 (10/27/2024 12:16) Weight:159 lb [72.12 kg] (09/18/2024 06:42) BMI: 21.6 GENERAL: Sclera anicteric, PERRLA, MMM NECK: Carotids were brisk without bruits. CHEST/LUNGS: Clear to auscultation bilaterally with no rales or wheezes. Good respiratory effort and excursion. HEART: S1 S2, RRRR, no JVP ABDOMEN: Soft, nontender, BS positive x 4 [...] mildly enlarged. 6. Mild mitral regurgitation. 7. Lygg-fq-ynjedlpu tricuspid regurgitation. 8. Mild pulmonary hypertension (estimated [...] ###. CARDIAC CATH: 2021: Clean coronaries ###. [facility] Sep 18, 2024 RIGHT HEART CATHETERIZATION [...] 2.3 Wood units Systemic vascular resistance: 1677 [id number]-kcm-oj^-5 Oxygen Saturations: Arterial saturation: 95% Mixed venous [...] NYHA Class: III ###. IMAGING: - cMRI ([facility], 07/2023) 1. Concentric LVH with mild-moderate global [...] 09/18/2024 06:55 PLT 241 10*3/uL 09/18/2024 06:55 MPV 10.9 fL 09/18/2024 06:55 NEUTROPHILS, AUTO % 76 % 09/18/2024 06:55 LYMPHOCYTES, AUTO % 12 % 09/18/2024 06:55 MONOCYTES, AUTO % 10 % 09/18/2024 06:55 EOSINOPHILS, AUTO % 1 % 09/18/2024 06:55 BASOPHILS, AUTO % 0 % 09/18/2024 06:55 NEUTROPHILS, ABSOLUTE 5.88 10*3/uL 09/18/2024 06:55 LYMPHOCYTES, ABSOLUTE 0.91 10*3/uL 09/18/2024 06:55 MONOCYTES, ABSOLUTE 0.79 10*3/uL 09/18/2024 06:55 EOSINOPHILS, ABSOLUTE 0.09 10*3/uL 09/18/2024 06:55 BASOPHILS, ABSOLUTE 0.03 10*3/uL 09/18/2024 06:55 IMMATURE PLT FRACTION 13.3 H % 02/13/2024 14:00 POIKILOCYTOSIS 1+ 02/10/2024 18:35 OVALOCYTES 1+ 02/10/2024 18:35 TEARDROPS 1+ 02/10/2024 18:35 COAGULATION STUDIES INR VALUE 1.9 INR 09/18/2024 [...] found...Contact IRM. ASSESSMENT AND PLAN: In summary, NADIAGOSIA PFEIFFER is a 59 MALE with a history of HFmrEF who presents for advanced heart failure, cardiac amyloid. He is followed by the [facility] Comprehensive Amyloid Center, and is currently undergoing chemotherapy. Overall, the patient is endorsing NYHA class IIIb symptoms and appears euvolemic on exam today. BARRIERS TO CARE AND CANDIDACY FOR ADVANCED THERAPIES: - No significant barriers identified. PLAN: #. AL LAMBDA Cardiac amyloid - Follows with Aris Kathryn - Remains on Robin 25, Empag 12.5 - Continue torsemide 10mg qDay - Continue midodrine 10 TID - Droxidopa 300 mg TID - Defer to [facility] re: chemo and further management. He appears to be on monthly maintenance daratumumab #. Atrial fibrillation - Recheck ECG today - Continue Eliquis (confirmed patient is taking) - Scheduled for a DIANNE/DCCV tomorrow (DIANNE given his risk of thromboembolism, despite A/C). #. CKD - Likely with proteinuria - Followed by Renal at [facility] #. HLD - Uninterested in statin #. DISPO - RTC in 6 months Thank you for allowing us to participate in this [facility]. Please do not hesitate to call the HF team with any questions or concerns. /luan/ ABRIL VERGARA MD PHD STAFF PHYSICIAN AND CHIEF OF HEART FAILURE Signed: 12/26/2024 10:12 ABRIL VERGARA [facility]
--- OUTSIDE RECORDS SUMMARY | 2025-06-24 11:49 | XMS_ITS | Clinical Summary ---
Author Organization [facility] Care Team Providers Care Biofuels Research Scientist Name Role Phone Unavailable Primary Care Provider [...]
--- OUTSIDE RECORDS SUMMARY | 2025-06-24 11:49 | XMS_ITS | Encounter Summary ---
Author Organization [facility] Address [address] [place] [address] Phone Care Team Providers Care Customer Advisor Name Role Phone Anuel Vargas Primary Care Provider [phone] Justin Flowers MD Unavailable Erlin Chong MD Unavailable Alexandra Powell RN Unavailable Encounter Details Date Type Department Care Team (Late st Contact Info) Description 05/28/2025 Results Follow-Up [facility] Gasteroenterology [address] [facility] Medicine 12th [place] [address] [place] [address] Jessica Marti MD [address] [place] [address] Hepatitis C genotype Blood Social History Tobacco Use Types Packs/Day Years Used Date Smoking Tobacco: Never Passive Smoke Exposure: Never Smokeless Tobacco: Never [facility] Utilities Answer Date Recorded In the past 12 months has [employer], gas, oil, or water company threatened to [...] often do you attend chur ch or yazdanism services? Never 04/10/2025 Do you belong to any clubs o r organizations such as latter day groups, unions, fraternal or athletic groups, or [...] place to sleep or slept in a detention (including now)? No 11/28/2023 PHQ-9 Answer Date [...] any time in the past 12 m [facility], were you homeless or living in a detention (including now)? No 04/10/2025 Personal Safety Answer Date Recorded Have you ever been in or are you currently in a harmful physical or emotional relationship or is someone making you feel afraid or unsafe? 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 ENTERTAINMENT DIRECTOR Gender Identity Male 05/28/2021 8:44 PM CDT Sexual Orientation Straight 10/19/2022 9: 47 AM ENTERTAINMENT DIRECTOR documented as of this encounter Miscellaneous Notes [...] Info) Description 07/01/2025 Hospital Encounter [facility] [address] [facility] [address] [place] [address] Dmitry Dean MD [address] [address] Scheduled Procedures Name Priority Associated Diagnoses Date/Ti ne ENDOMYOCARDIAL BIOPSY 31354 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 Immunosuppression documented as [...] as of this encounter Care Teams Customer Advisor Relationship Specialty Start Date End Date Anuel Vargas DO PCP - General Internal Medicine 10/19/22 Justin Flowers MD [address] DIV IM [employer]ONE [employer]ARROW [employer] [place] [address] Consulting Physician Medical Oncology 10/06/23 Erlin Chong MD [address] DIV IM [employer] [place] [address] Referring Physician Cardiology 10/06/23 Alexandra Powell, RN [address] [facility] [address] [place] [address] Fourdrinier Machine Operator Transplant 05/21/25 documented as of this encounter
--- OUTSIDE RECORDS SUMMARY | 2025-06-24 11:49 | XMS_ITS | Encounter Summary ---
Author Name [facility] [place] [facility] [place] Address [address] [place] [address] Care Team Providers Care Division Order Technician Name Role Phone OSWALDOKAROLINAE Primary Care Provider [...] Kennedy's Name Patient's Relationship to Policy Kennedy [facility] 2024 [facility] Nov 21, 2024 [facility] [id number] 12 Elzbieta ZUNIGA PATIENT Selected Encounter This section includes the information on record at [place] for the Encounter. Date/Time Encounter Type Encounter Description Reason Provider Source Jun 27, 2024 08:30 AM OFFICE O/P EST HI 40 MIN CARDIOLOGY ICD-10-CM I10 Essential (primary) hypertension EMILE VERGARA IHBreana Encounter Template Text not used by [facility] Assessments - Encounter Diagnoses This section includes the primary and secondary diagnoses documented for the Encounter. Date/Time Primary/Secondary Diagnosis Diagnosis Name Provider Source Jun 27, 2024 08:43 AM PRIMARY Essential (primary) hypertension ISAIAH VERGARA [facility] Jun 27, 2024 08:43 AM SECONDARY Chronic combined systolic and diastolic hrt fail ISAIAH VERGARA [facility] Jun 27, 2024 08:43 AM SECONDARY Light chain (AL) amyloidosis ISAIAH VERGARA [facility] Plan of Treatment: Future Appointments (+ 6 months) and Future Tests (+/- 45 days) The Plan of Treatment section includes future care activities for the [place] [facility] [place] [facility]. This section includes future appointments and future orders which are active, pending or scheduled. Future Appointments This section includes appointments that were scheduled to occur 6 months from the date of the Encounter, up to a maximum of 20 appointments. The data comes from all [place] treatment facilities. Appointment Date/Time Appointment Type Appointme nt Facility Name Jun 28, 2024 09:15 AM AMBULATORY - MEDICINE [facility] Sep 18, 2024 07:00 AM AMBULATORY - NONE [facility] Sep 18, 2024 07:15 AM AMBULATORY - MEDICINE [facility] Sep 18, 2024 12:00 PM AMBULATORY - MEDICINE [facility] Oct 27, 2024 12:11 PM AMBULATORY - MEDICINE [facility] Vital Signs: All taken on the encounter date This section contains inpatient and outpatient Vital Signs collected on the date of the Encounter. Date/Time Temperature Pulse Blood Pressure Respiratory Rate SP02 Pain Height Weight Body Mass Index Source Jun 27, 2024 08:21 AM 98.2 74 122/77 18 100 2 168.6 23 [facility] Social History: Smoking Status (Most current) and Tobacco Use (All prior to encounter date) This section includes the most current, and the historical, smoking and tobacco- related health factors from the [place] facility where the Encounter took place. Current Smoking Status This section includes the most current smoking, or tobacco-related health factor, from the [place] facility where the Encounter took place. Date/Time Current Smoking Status Ирина reyes Feb 10, 2024 06:16 PM ORYX ADMIT TOBACCO SCREEN NO [facility] Advance Directives: All historical and current Section Date Range: From patient's date of to the date document was created. This section includes ALL of a patient's completed or amended [place] Advance and Rescinded Directives. The entries below indicate that a directive exists for the patient, but an actual copy is not included with this document. The data comes from all [place] facilities. Date Advance Directives Provider Source Feb 16, 2024 ADVANCE DIRECTIVE GINA BRIGHT [facility] Encounter Notes: All associated encounter notes This section contains the clinical notes associated to the Encounter. Date/Time Encounter Note(s) Provider Source Jun 27, 2024 05:52 AM CARDIOLOGY NOTE: LOCAL TITLE: CARDIOLOGY HEART FAILURE NOTE [facility] STANDARD TITLE: CARDIOLOGY NOTE DATE OF NOTE: JUN 27, 2024@05:52 ENTRY DATE: JUN 27, 2024@05:52:14 AUTHOR: ABRIL VERGARAIGNER: URGENCY: STATUS: COMPLETED [facility] ADVANCED HEART FAILURE SERVICE: FOLLOW-UP VISIT NOTE PRINCIPAL AND SECONDARY DIAGNOSES: 1. Cardiac amyloid, AL / Lambda subtype - Followd by Aris Chong and Justin Schaffer - Started on Stephanie-CyBorD (11/12) - Seen by [facility] nephrology for kidney involvement (proteinuria) - Seen by [facility] GI for likely GI involvement (Sammi). 2. [facility] with clean cors 3. Atrial fibrillation - On Eliquis A/C 4. HTN 5. Low back pain 6. Gout 7. Lung nodules / pleural thickening of unknown origin. CARE TEAM: 1. NARRA,ADAMA B INTERVAL HISTORY: We had the pleasure of seeing GOSIA ZUNIGA in the [facility] Advanced Heart Failure Program. As you [...] this treatment well except for some nausea. He was hospitalized at [facility] from 11/27 - 11/29/23 for SOB and lower extremity swelling. He was found to be RSV+, and was given CAP treatment (Azithro / CTX). He was diursed somewhat but this was limited by hypotension. He had some NSVT and his metoprolol was increased. He unfortuntately left AMA. He was admitted to [facility] 02/10/24 - 02/17/24 for ADHF. He was diuresed 25 lbs from 201 --> 175 lbs. Yasemin Marley saw Mr. Zuniga in [facility] at which time he was endorsing NYHAIII symptoms, with significant fatigue, low energy, and worsening GI issues (decreased appetite, abdominal pain). Weight was 174.3lbs. He remained hypotensive, and was still taking droxidopa. Dr. Chong has requested a DIANNE/DCCV given his Afib. TODAY: Notes he is showing some improvement, but doesn't feel that much better. Edema has improved. He notes he is always SOB, fatigued, and has no energy. He is set to undergo a DIANNE/DCCV. He notes minor chest pain, but it doesn't interfere with his daily activities. 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 BP has been variable (some hypotension), but yesterday was in the 90s systolic. He notes continued intermittinet dizziness, LH. No syncope. He did fall 1 month prior, which was thought to be orthostatic. CURRENT OUTPATIENT MEDICATIONS: Active Outpatient Medications (including [...] 25MG BY MOUTH ONCE A ACTIVE DAY 10 Total Medications - All cardiac medications were reconciled during the visit. - Atorva 40 - stopped taking - Droxidopa 300 TID * - Acyclovir 400 TID * - Empag 10 * - Midodrine 10 TID * - [place] 25 * - Torsemide 10mg qDay PHYSICAL EXAM: Temperature: 98.2 F [36.8 C] (06/27/2024 08:21) BP: 122/77 (06/27/2024 08:21) Pulse: 74 (06/27/2024 08:21) Resp: 18 (06/27/2024 08:21) Weight:168.6 lb [76.48 kg] (06/27/2024 08:21) BMI: 22.9 GENERAL: Thin WM, appears midly frail. Sclera anicteric, PERRLA, MMM NECK: Carotids were brisk without bruits. CHEST/LUNGS: Clear to auscultation bilaterally with no rales or wheezes. Good respiratory effort and excursion. HEART: S1 S2, irregularly irregular, no JVP ABDOMEN: Soft, nontender, BS positive x 4 quadrants EXTREMITIES: Trace LE edema at the ankles. Pedal pulses intact bilaterally NEUROLOGICAL: Alert and [...] mildly enlarged. 6. Mild mitral regurgitation. 7. Wgue-yz-rjwaayao tricuspid regurgitation. 8. Mild pulmonary hypertension (estimated [...] ###. CARDIAC CATH: 2021: Clean coronaries ###. ICD: - N/A ###. Current NYHA Class: III ###. IMAGING: - cMRI ([facility], 07/2023) 1. Concentric LVH with mild-moderate global LV systolic dysfunction. LVEF 38%. 2. Upper limit of normal RV size, and mildly reduced global RV dysfunction< RVEF 39%. 3. LGE pattern suggests an infiltrative cardiomyopathy such as amyloidosis. No T1/T2 maps available. 4. Mild tricuspid regurgitation, no other significant valvular heart disease 5. Small pericardial effusion and pleural effusions. -PYP ([place], 2022) Impression: 1. The above described findings [...] PFTs. ###. LABORATORIES: COMPREHENSIVE METABOLIC PANEL SODIUM 133 L mEq/L 02/16/2024 20:00 POTASSIUM [...] 20:00 EGFR (CKD-EPI 2020) 65.7 02/16/2024 20:00 COMPLETE BLOOD COUNT WBC 6.4 10*3/uL 02/16/2024 20:00 RBC 4.89 [...] 1+ 02/10/2024 18:35 TEARDROPS 1+ 02/10/2024 18:35 LIPIDS TRIGLYCERIDE 66 mg/dL 05/03/2023 11:07 CHOLESTEROL [...] IRM. ASSESSMENT AND PLAN: In summary, GOSIA ZUNIGA is a 59 MALE with a history of HFmrEF who presents for advanced heart failure, cardiac amyloid. He is followed by the [facility], and is currently undergoing chemotherapy. Overall, the patient is endorsing NYHA class IIIb symptoms and appears euvolemic on exam today. BARRIERS TO CARE AND CANDIDACY FOR ADVANCED THERAPIES: - No significant barriers identified. PLAN: #. AL LAMBDA Cardiac amyloid - Follows with Aris Peralta - Remains on [place] 25, Empag 12.5 - Continue torsemide 10mg qDay - Continue midodrine 10 TID - Droxidopa 300 mg TID - Defer to [facility] re: chemo and further management. He appears to be on monthly maintenance daratumumab #. Atrial fibrillation - Recheck ECG today - Continue Eliquis (confirmed patient is taking) - Scheduled for a DIANNE/DCCV tomorrow (DIANNE given his risk of thromboembolism, despite A/C). #. CKD - Likely with proteinuria - Followed by Renal at [facility] #. HLD - Uninterested in statin #. DISPO - RTC in 6 months Thank you for allowing us to participate in this [facility]. Please do not hesitate to call the HF team with any questions or concerns. /es/ ABRIL VERGARA MD PHD STAFF PHYSICIAN AND CHIEF OF HEART FAILURE Signed: 06/27/2024 08:43 ABRIL VERGARA [facility]
--- OUTSIDE RECORDS SUMMARY | 2025-06-24 11:49 | XMS_ITS | Continuity of Care Document ---
Author Name [facility] Organization [facility] Care Team Providers Care Nurse Midwife Name Role Phone [facility] Unavailable Unavailable Problems Combined list of problems [...] visit for: routine adult H&P Inactive Condition [facility] visit for: administrative purpose Inactive Condition DoD THYROID DISORDERS Active Condition DoD HEMANGIOMA Inactive Condition DoD OBESITY Active Condition DoD ACUTE REACTION TO STRESS Active Condition DoD CERVICALGIA Active Condition Recommen ded a course of NSAIDS. Will try Flexerel @ bedtime. Disccussed some stretches/streng thening exercises. Will pursue PT. If pt still without significant improvement in symptoms in 4 weeks, a f/u appt was recommended. DoD ANKLE SPRAIN ANTERIOR TALOFIBULAR LIGAMENT LEFT Active Condition 1. Given exercises from [facility] to begin immediately.2. Patient already moving around and walking- so no immobilization recommended.3. We did not have Air Cast in clinic and patient declined Rx for the same.4. Advised rest, ice, elevation, and Motrin for pain if needed.- patient has motrin at home.5. f/u if no better in 2 weeks.[facility] d/w Dr. Enamorado. [facility] Need For Vaccination Yellow Fever Inactive Condition [facility] [place] amyloidosis Active Condition [facility] Back pain Active Condition [facility] Exposure to potentially hazardous substance Active Condition . [facility] Goiter Active Condition [facility] Gout Active Condition [facility] HFrEF - heart failure with reduced ejection fraction Active Condition [facility] Hypertension Active Condition . [facility] Pulmonary fibrosis Active Condition [facility] Diagnosis: ICD-10-CM Z02.9 Encounter for administrative examinations, unspecified Active Diagnosis [facility] Diagnosis: ICD-10-CM Z01.810 Encounter for preprocedural cardiovascular examination Active Diagnosis 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 Diagnosis: ICD-10-CM E27.8 Other specified disorders of adrenal gland Active Diagnosis [facility] Diagnosis: ICD-10-CM Z76.82 Awaiting organ transplant status Active Diagnosis [facility] Diagnosis: ICD-10-CM Z01.20 Encounter for dental exam and cleaning w/o abnormal findings Active Diagnosis [facility] Diagnosis: ICD-10-CM I50.9 Heart failure, unspecified Active Diagnosis [facility] Diagnosis: ICD-10-CM I50.20 Unspecified systolic (congestive) heart failure Active Diagnosis 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 Diagnosis: ICD-10-CM J06.9 Acute upper respiratory infection, unspecified Active Diagnosis [facility] Diagnosis: ICD-10-CM Z71.81 Spiritual or presybeterian counseling Active Diagnosis [facility] Diagnosis: ICD-10-CM I48.19 Other persistent atrial fibrillation Active Diagnosis [facility] Diagnosis: ICD-10-CM Z01.818 Encounter for other preprocedural examination Active Diagnosis [facility] Diagnosis: ICD-10-CM I10 Essential (primary) hypertension Active Diagnosis [facility] Diagnosis: ICD-10-CM I95.9 Hypotension, unspecified Active Diagnosis [facility] Diagnosis: ICD-10-CM I50.22 Chronic systolic (congestive) heart failure Active Diagnosis [facility] Diagnosis: ICD-10-CM I50.21 Acute systolic (congestive) heart failure Active Diagnosis [facility] Diagnosis: ICD-10-CM Z55.9 Problems related to education and literacy, unspecified Active Diagnosis [facility] Diagnosis: ICD-10-CM I50.23 Acute on chronic systolic (congestive) heart failure Active Diagnosis [facility] Diagnosis: ICD-10-CM I50.43 Acute on chronic combined systolic and diastolic hrt fail Active Diagnosis [facility] Diagnosis: ICD-10-CM I50.41 Acute combined systolic and diastolic (congestive) hrt fail Active Diagnosis [facility] Admit Reason: ACUTE ON CHRONIC HEART FAILURE Active Diagnosis [facility] Medications Combined list of outpatient medications from [...] 5 2024 60.0 Ambulat ory Pharmac y ACYCLOVIR 400MG TAB TAKE ONE TABLET BY MOUTH THREE TIMES A DAY ORAL ACTIVE Jennifer JACOBS 2023 [facility] albuterol 90 mcg/inh inhalation aerosol INHALE 2 PUFFS EVERY SIX HOURS NEEDED FOR WHEEZING , # 25.5 g, 1 total refill(s ), Acute Complet ed 10/24/20232022 25.5 Ambulat ory Pharmac y APIXABAN 5 MG ORAL TAB Take or use exactly as directed .Obtain advice for OTCs.Ana Laura ck with your doctor before becoming . 05/01/2025 [id number] 2023 60 [employer] Raman BOYCE [place] apixaban 5 mg tablet 5 mg, Oral, BID, # 60 EA, 11 total refill(s ), Hard Stop Oral (given by mouth) Complet ed 05/01/2025 5 2024 60.0 Ambulat ory Pharmac y APIXABAN 5MG TAB TAKE ONE TABLET BY MOUTH TWICE A DAY ORAL ACTIVE MARÍA VERGARA 2023 [facility] N atenolol 25 mg oral tablet TAKE ONE TABLET DAILY, # 90 EA, 1 total refill(s ), Acute Complet ed 12/09/2023 3 2023 90.0 Ambulat ory Pharmac y BENZONATATE 200MG CAP TAKE ONE CAPSULE BY MOUTH THREE TIMES A DAY NEEDED FOR COUGH ORAL 11/26/2024 [id number] SYNaraSAL ORGE R 2023 15 [facility] bortezomib 1.3 mg/m2, IV Drip (Intrave nous), every week, 0 total refill(s ), Maintena nce Intrav enous Drip Ordered 20235C-3 [facility] CHLORHEXIDI NE GLUCONATE 0.12% RINSE,ORAL SWISH AND SPIT 15 ML BY MOUTH TWICE A DAY SWISH IN MOUTH UNDILUTE D FOR 30 SECONDS THEN SPIT IN SINK. AVOID CONTACT WITH EYES. ORAL ACTIVE 01/26/2026 [id number] Barrie CROSS 2024 480 [facility] cycloPHOSph amide 1 mg/kg, Oral, Daily, 0 total refill(s ), Maintena nce Oral (given by mouth) Ordered 20235C-3 [facility] cycloSPORIN E 0.05% ophthalmic emulsion cycloSPO RINE 0.05% ophthalm ic emulsion Start Date: 04/04/19 Status: Ordered Repeat number: 1 Ordered 2018 No Facilit y Access daratumumab 1,120 mg, IV Drip (Intrave nous), 0 total refill(s ), Maintena nce Intrav enous Drip Ordered 2023 0055C-3 [facility] dicyclomine 10 mg capsule See Instruct ions, Oral, # 360 EA, 0 total refill(s ), Hard Stop Oral (given by mouth) Discont inued 06/15/2024 3 2023 360.0 Ambulat ory Pharmac y digoxin (U/D) 125 MCG ORAL TAB Take or use exactly as directed . 05/01/2025 [id number] 4 2023 30 [facility] Raman BOYCE [place] digoxin 125 mcg (0.125 mg) tablet 125 [...] (given by mouth) Ordered 2023 0055C-3 [facility] DROXIDOPA 300MG CAP,ORAL TAKE ONE CAPSULE BY MOUTH THREE TIMES A DAY FOR HYPOTENS ION ORAL ACTIVE 03/05/2026 [id number] MARÍA VERGARA 2024 90 [facility] DROXIDOPA 300MG CAP,ORAL TAKE ONE CAPSULE BY MOUTH THREE TIMES A DAY FOR HYPOTENS ION ORAL DISCONT INUED 05/09/2025 [id number] MARÍA VERGARA 2023 90 [facility] EMPAGLIFLOZ IN 10 MG ORAL TAB Check with your doctor before becoming . 10/03/2024 [id number] 3 [address] [place] [address] Raman BOYCE [place] empaglifloz in 10 mg tablet = 1 tab(s), Oral, Daily, # 90 EA, 3 total refill(s ), Hard Stop Oral (given by mouth) Ordered 11/29/2025 5 2024 90.0 Ambulat ory Pharmac y EMPAGLIFLOZ IN TAB,ORAL TAKE 10MG BY MOUTH ONCE A DAY ORAL ACTIVE Jennifer JACOBS 2023 [facility] EPLERENONE 50MG TAB TAKE ONE-HALF TABLET BY MOUTH EVERY MORNING FOR HEART FAILURE ORAL ACTIVE 03/28/2026 [id number] MARÍA VERGARA 2024 45 [facility] esomeprazol e DR 40 mg capsule 40 [...] total refill(s ), Acute Complet ed 10/24/2023 2 2022 36.0 Ambulat ory Pharmac y [...] (given by mouth) Ordered 2023 270.0 0055C-[address] [place] [address]- [place] midodrine 10 mg tablet See Instruct ions, # 90 EA, 6 total refill(s ), Hard Stop Discont inued 04/19/2024 4 2023 90.0 Ambulat ory Pharmac y midodrine 2.5 mg tablet 2.5 mg, Oral, TID, # 90 EA, 3 total refill(s ), Hard Stop Oral (given by mouth) Discont inued 01/02/2024 4 2023 90.0 Ambulat ory Pharmac y MIDODRINE HCL 10MG TAB TAKE ONE TABLET BY MOUTH THREE TIMES A DAY ORAL ACTIVE Jennifer JACOBS 2023 [facility] ondansetron 4 mg ODT See Instruct ions, # 60 EA, 2 total refill(s ), Hard Stop Discont inued 01/31/2024 3 2023 60.0 Ambulat ory Pharmac y ondansetron 8 mg ODT See Instruct ions, # 1 EA, 0 total refill(s ), Hard Stop Complet ed 05/01/2025 4 2024 1.0 Ambulat ory Pharmac y OXYMETAZOLI NE HCL 0.05% SOLN,NASAL SPRAY USE 2 SPRAYS INTO NOSTRIL( S) TWICE DAILY NEEDED FOR NASAL CONGESTI ON DO NOT USE MORE THAN 3 DAYS IN A ROW. NASAL 11/26/2024 [id number] SAL TELLEZ R 2023 30 [facility] pantoprazol e 40 mg oral delayed release [...] 3 2022 30.0 Ambulat ory Pharmac y PANTOPRAZOL E NA 40MG TAB,EC TAKE ONE TABLET BY MOUTH EVERY MORNING BEFORE A MEAL ORAL ACTIVE KAROLINA CHACON 2021 [facility] POLYETHYLEN E GLYCOL 3350 PWDR,ORAL MIX AND DRINK 1 CAPFUL BY MOUTH ONCE A DAY NEEDED ORAL ACTIVE Jennifer JACOBS 2023 [facility] Potassium Chloride (Eqv-K-Tab) Oral, BID, 0 total refill(s ), Maintena nce Oral (given by mouth) Ordered 2023 0055C-[address] [place] [address] potassium chloride ER 10 mEq tablet (dispersibl e) 20 mEq, Oral, Daily, # 180 EA, 3 total refill(s ), Hard Stop Oral (given by mouth) Discont inued 01/31/2024 4 2023 180.0 Ambulat ory Pharmac y PROCHLORPER AZINE MALEATE 10MG TAB TAKE ONE TABLET BY MOUTH EVERY 6 HOURS NEEDED ORAL ACTIVE Jennifer JACOBS 2023 [facility] SODIUM FLUORIDE 1.1% TOOTHPASTE USE DIRECTED BY MOUTH TWICE A DAY TOOTHPAS TE (DO NOT SWALLOW) ORAL ACTIVE 01/26/2026 [id number] Barrie CROSS 2024 51 [facility] spironolact one 25 mg tablet 25 mg, Oral, Daily, # 90 EA, 2 total refill(s ), Hard Stop Oral (given by mouth) Complet ed 07/14/2024 4 2023 90.0 Ambulat ory Pharmac y torsemide Oral, Daily, 0 total refill(s ), Maintena nce Oral (given by mouth) Ordered 2023 0055C-[address] [place] [address] torsemide 20 mg tablet 20 mg, Oral, [...] 4 2023 180.0 Ambulat ory Pharmac y TORSEMIDE TAB TAKE 20MG BY MOUTH ONCE A DAY FOR 0 AND TAKE 10 BY MOUTH NIGHTLY ORAL ACTIVE MARÍA VERGARA [facility] X[facility]an 550 mg tablet 550 mg, Oral, [...] Known Allergies Drug allergy (disorder) active 02/27/2008 [facility] Immunizations Combined list of available immunizations from the Department of Defense and Veterans Affairs facilities. Immunization Series Date Given Administered By Site Reaction Lot Number CVX Code Drug Recovery Rn Status Comments Source COVID-19, mRNA, LNP-S, PF, 30 mcg/0.3 mL dose, hannah-sucrose 2021 [email or web address] [place] (PFR) Not Given COVID-19, mRNA, LNP-S, PF, 30 mcg/0.3 mL dose, hannah-sucr ose DoD COVID-19 (PFIZER), MRNA, LNP-S, PF, 30 MCG/0.3 ML DOSE, HANNAH-SUCROSE (AGES 12+ YEARS) 3 2021 217 complet ed [facility] zoster vaccine recombinant 1 2021 Unknown, Provider [id number] [employer]ris[employer] (SANDRO) complet ed zoster vaccine recombina nt DoD ZOSTER RECOMBINANT 2 2021 187 complet ed [facility] zoster vaccine recombinant 1 2021 Unknown, Provider [id number] Marcio Garciajair (SANDRO) complet ed zoster vaccine recombina nt DoD ZOSTER RECOMBINANT 1 2021 187 complet ed [facility] COVID-19, mRNA, LNP-S, PF, 30 mcg/0.3 mL dose 2021 EHSAN, [place] (PFR) Not Given COVID-19, mRNA, LNP-S, PF, 30 mcg/0.3 mL dose DoD COVID-19 (PFIZER), MRNA, LNP-S, PF, 30 MCG/0.3 ML DOSE, HANNAH-SUCROSE (AGES 12+ YEARS) 3 2021 217 complet ed [facility] Influenza, injectable, MDCK, preservative free, quadrivalent 2020 ALUL, () Not Given Influenza , injectabl e, MDCK, preservat meme free, quadrival ent DoD INFLUENZA, UNSPECIFIED FORMULATION 2020 88 complet ed [facility] COVID-19 (PFIZER), MRNA, LNP-S, PF, 30 MCG/0.3 ML DOSE 2 2020 208 complet ed PFR; [id number]; 1 [facility] COVID-19 (myRete), MRNA, LNP-S, PF, 30 MCG/0.3 ML DOSE 1 2020 208 complet ed PFR; [id number]; 1 [facility] Influenza, injectable, MDCK, preservative free, quadrivalent 2019 ALUL, () Not Given Influenza , injectabl e, MDCK, preservat meme free, quadrival ent DoD influenza, injectable, quadrivalent, preservative free 2018 ALUL, () Not Given influenza , injectabl e, quadrival ent, preservat meme free DoD tetanus, diphtheria, acellular pertu is 2012 [id number] 115 [employer] complet ed tetanus, diphtheri a, acellular pertussis 05/03/13 Given Ambulat ory Pharmac y tetanus toxoid, reduced diphtheria toxoid, and acellular pertu is vaccine, adsorbed 1 2012 [id number] 4BA 115 [employer] (SKB) complet ed tetanus toxoid, reduced diphtheri a toxoid, and acellular pertussis vaccine, adsorbed DoD TDAP 2012 115 complet ed documenta tion in [facility] yellow fever vaccine 2004 zzLef t Arm [id number] sanofi pasteur complet ed yellow fever vaccine 04/07/05 Given Ambulat ory Pharmac y yellow fever vaccine 1 2004 Unknown, Provider [id number] Sanofi Pasteur (PMC) complet ed yellow fever vaccine DoD vaccinia (smallpox) vaccine 2002 [id number] [employer] complet ed vaccinia (smallpox ) vaccine 12/31/02 Given Ambulat ory Pharmac y vaccinia (smallpox) vaccine 0 2002 Unknown, Provider [id number] [employer] (WAL) complet ed vaccinia (smallpox ) vaccine DoD Results Combined list of recent chemistry, hematology and other laboratory results from Department of Defense and Veterans Affairs, ranging from 15 months to all on record, depending upon the facility. Order Name Results Value Reference Range Date Interpretation Specimen Comments Source GLUCOSE, BLOOD-po ct (STL) GLUCOSE [MASS/VOLU ME] IN BLOOD BY AUTOMATED TEST STRIP 110 mg/dL 72 - 99 02/26 H Specimen Type: BLOOD Comment: Test Performed by: [id number] Meter #: [id number] Ordering Provider: ADAMA CHACON Report Released Date/Time: Feb 26, 2025 06:50 AM Reporting Lab: [facility] [address] [address] Performing Lab: [facility] [address] [facility] [address] [facility] URINE DRUG SCREEN (STL) ETHANOL [MASS/VOLU ME] IN URINE <10mg/dL 0 - 9 02/12 Specimen Type: URINE Comment: The cut-off value for Fentanyl was laboratory developed and its performance characteris tics confirmed by the [facility] laboratory thru method comparison with reference laboratory and medication chart review. The laboratory is regulated under CLIA as qualified to perform high-comple xity testing. Fentanyl is used for clinical purposes in conjunction with other laboratory tests. Ordering Provider: HENNY ALEGRIA Report Released Date/Time: Feb 01, 2025 12:11 PM Reporting Lab: [place] [address] [facility] [address] Performing Lab: [facility] [address] [address] [facility] URINE DRUG SCREEN (STL) AMPHETAMIN E [PRESENCE] IN URINE BY SCREEN METHOD Negative ng/mL 02/12 Specimen Type: URINE Comment: The cut-off value for Fentanyl was laboratory developed and its performance characteris tics confirmed by the [facility] laboratory thru method comparison with reference laboratory and medication chart review. The laboratory is regulated under CLIA as qualified to perform high-comple xity testing. Fentanyl is used for clinical purposes in conjunction with other laboratory tests. Ordering Provider: HENNY ALEGRIA Report Released Date/Time: Feb 01, 2025 12:11 PM Reporting Lab: [place] [address] [facility] [address] Performing Lab: [place] [address] [facility] [address] [facility] URINE DRUG SCREEN (STL) BENZOYLECG ONINE [PRESENCE] IN URINE Negative ng/mL 02/12 Specimen Type: URINE Comment: The cut-off value for Fentanyl was laboratory developed and its performance characteris tics confirmed by the [facility] laboratory thru method comparison with reference laboratory and medication chart review. The laboratory is regulated under CLIA as qualified to perform high-comple xity testing. Fentanyl is used for clinical purposes in conjunction with other laboratory tests. Ordering Provider: HENNY ALEGRIA Report Released Date/Time: Feb 01, 2025 12:11 PM Reporting Lab: [place] [address] [facility] [address] Performing Lab: [address] [address] [facility] URINE DRUG SCREEN (STL) BENZODIAZE PINES [PRESENCE] IN URINE BY SCREEN METHOD Negative ng/mL 02/12 Specimen Type: URINE Comment: The cut-off value for Fentanyl was laboratory developed and its performance characteris tics confirmed by the [facility] laboratory thru method comparison with reference laboratory and medication chart review. The laboratory is regulated under CLIA as qualified to perform high-comple xity testing. Fentanyl is used for clinical purposes in conjunction with other laboratory tests. Ordering Provider: HENNY ALEGRIA Report Released Date/Time: Feb 01, 2025 12:11 PM Reporting Lab: [facility] [address] [address] Performing Lab: [facility] [address] [address] [facility] URINE DRUG SCREEN (STL) CANNABINOI DS [PRESENCE] IN URINE BY SCREEN METHOD Negative ng/mL 02/12 Specimen Type: URINE Comment: The cut-off value for Fentanyl was laboratory developed and its performance characteris tics confirmed by the [facility] laboratory thru method comparison with reference laboratory and medication chart review. The laboratory is regulated under CLIA as qualified to perform high-comple xity testing. Fentanyl is used for clinical purposes in conjunction with other laboratory tests. Ordering Provider: HENNY ALEGRIA Report Released Date/Time: Feb 01, 2025 12:11 PM Reporting Lab: [facility] [address] [address] Performing Lab: [facility] [address] [address] [facility] URINE DRUG SCREEN (STL) METHADONE [PRESENCE] IN URINE Negative ng/mL 02/12 Specimen Type: URINE Comment: The cut-off value for Fentanyl was laboratory developed and its performance characteris tics confirmed by the [facility] laboratory thru method comparison with reference laboratory and medication chart review. The laboratory is regulated under CLIA as qualified to perform high-comple xity testing. Fentanyl is used for clinical purposes in conjunction with other laboratory tests. Ordering Provider: HENNY ALEGRIA Report Released Date/Time: Feb 01, 2025 12:11 PM Reporting Lab: [facility] [address] [facility] [address] Performing Lab: [address] [address] [facility] URINE DRUG SCREEN (STL) OPIATES [PRESENCE] IN URINE BY SCREEN METHOD Negative ng/mL 02/12 Specimen Type: URINE Comment: The cut-off value for Fentanyl was laboratory developed and its performance characteris tics confirmed by the [facility] laboratory thru method comparison with reference laboratory and medication chart review. The laboratory is regulated under CLIA as qualified to perform high-comple xity testing. Fentanyl is used for clinical purposes in conjunction with other laboratory tests. Ordering Provider: HENNY ALEGRIA Report Released Date/Time: Feb 01, 2025 12:11 PM Reporting Lab: [address] [address] Performing Lab: [address] [address] [facility] URINE DRUG SCREEN (STL) CREATININE [MASS/VOLU ME] IN URINE 88.9 mg/dL 63 - 166 02/12 Specimen Type: URINE Comment: The cut-off value for Fentanyl was laboratory developed and its performance characteris tics confirmed by the [facility] laboratory thru method comparison with reference laboratory and medication chart review. The laboratory is regulated under CLIA as qualified to perform high-comple xity testing. Fentanyl is used for clinical purposes in conjunction with other laboratory tests. Ordering Provider: HENNY ALEGRIA Report Released Date/Time: Feb 01, 2025 12:11 PM Reporting Lab: [address] [address] Performing Lab: [address] [address] [facility] URINE DRUG SCREEN (STL) OXYCODONE CUTOFF [MASS/VOLU ME] IN URINE FOR SCREEN METHOD Negative ng/mL 02/12 Specimen Type: URINE Comment: The cut-off value for Fentanyl was laboratory developed and its performance characteris tics confirmed by the [facility] laboratory thru method comparison with reference laboratory and medication chart review. The laboratory is regulated under CLIA as qualified to perform high-comple xity testing. Fentanyl is used for clinical purposes in conjunction with other laboratory tests. Ordering Provider: HENNY ALEGRIA Report Released Date/Time: Feb 01, 2025 12:11 PM Reporting Lab: [facility] [address] [address] Performing Lab: [facility] [address] [facility] [address] [facility] URINE DRUG SCREEN (STL) BUPRENORPH INE [PRESENCE] IN URINE Negative ng/mL 02/12 Specimen Type: URINE Comment: The cut-off value for Fentanyl was laboratory developed and its performance characteris tics confirmed by the [facility] laboratory thru method comparison with reference laboratory and medication chart review. The laboratory is regulated under CLIA as qualified to perform high-comple xity testing. Fentanyl is used for clinical purposes in conjunction with other laboratory tests. Ordering Provider: HENNY ALEGRIA Report Released Date/Time: Feb 01, 2025 12:11 PM Reporting Lab: [facility] [address] [address] Performing Lab: [facility] [address] [address] [facility] URINE DRUG SCREEN (STL) FENTANYL [PRESENCE] IN URINE Negative ng/mL 02/12 Specimen Type: URINE Comment: The cut-off value for Fentanyl was laboratory developed and its performance characteris tics confirmed by the [facility] laboratory thru method comparison with reference laboratory and medication chart review. The laboratory is regulated under CLIA as qualified to perform high-comple xity testing. Fentanyl is used for clinical purposes in conjunction with other laboratory tests. Ordering Provider: HENNY ALEGRIA Report Released Date/Time: Feb 01, 2025 12:11 PM Reporting Lab: [place] [address] [facility] [address] Performing Lab: [address] [address] [facility] URINALYS IS (STL-PB) COLOR OF URINE Light-Ye llow 02/12 Specimen Type: URINE No comment entered. Ordering Provider: HENNY ALEGRIA Report Released Date/Time: Feb 01, 2025 12:11 PM Reporting Lab: [address] [address] Performing Lab: [address] [address] [facility] URINALYS IS (STL-PB) BILIRUBIN. TOTAL [PRESENCE] IN URINE BY TEST STRIP Negative mg/dL 02/12 Specimen Type: URINE No comment entered. Ordering Provider: HENNY ALEGRIA Report Released Date/Time: Feb 01, 2025 12:11 PM Reporting Lab: [address] [address] Performing Lab: [address] [address] [facility] URINALYS IS (STL-PB) PH OF URINE BY TEST STRIP 6.5 5.0 - 8.0 02/12 Specimen Type: URINE No comment entered. Ordering Provider: HENNY ALEGRIA Report Released Date/Time: Feb 01, 2025 12:11 PM Reporting Lab: [address] [address] Performing Lab: [address] [address] [facility] URINALYS IS (STL-PB) LEUKOCYTES [#/AREA] IN URINE SEDIMENT BY MICROSCOPY HIGH POWER FIELD 1 /[HPF] 0 - 5 02/12 Specimen Type: URINE No comment entered. Ordering Provider: HENNY ALEGRIA Report Released Date/Time: Feb 01, 2025 12:11 PM Reporting Lab: [address] [address] Performing Lab: [address] [address] [facility] URINALYS IS (STL-PB) ERYTHROCYT ES [#/VOLUME] IN URINE SEDIMENT BY MICROSCOPY HIGH POWER FIELD <1/[HPF] 0 - 5 02/12 Specimen Type: URINE No comment entered. Ordering Provider: HENNY ALEGRIA Report Released Date/Time: Feb 01, 2025 12:11 PM Reporting Lab: [facility] [address] [place] [address] Performing Lab: [facility] [address] [place] [address] [facility] URINALYS IS (STL-PB) APPEARANCE OF URINE Clear 02/12 Specimen Type: URINE No comment entered. Ordering Provider: HENNY ALEGRIA Report Released Date/Time: Feb 01, 2025 12:11 PM Reporting Lab: [address] [address] Performing Lab: [address] [address] [facility] URINALYS IS (STL-PB) NITRITE [PRESENCE] IN URINE BY TEST STRIP Negative mg/dL 02/12 Specimen Type: URINE No comment entered. Ordering Provider: HENNY ALEGRIA Report Released Date/Time: Feb 01, 2025 12:11 PM Reporting Lab: [address] [address] Performing Lab: [address] [address] [facility] URINALYS IS (STL-PB) GLUCOSE [MASS/VOLU ME] IN URINE BY TEST STRIP 1000 mg/dL 02/12 H Specimen Type: URINE No comment entered. Ordering Provider: HENNY ALEGRIA Report Released Date/Time: Feb 01, 2025 12:11 PM Reporting Lab: [address] [address] Performing Lab: [address] [address] [facility] URINALYS IS (STL-PB) PROTEIN [MASS/VOLU ME] IN URINE BY TEST STRIP 100 mg/dL 02/12 H Specimen Type: URINE No comment entered. Ordering Provider: HENNY ALEGRIA Report Released Date/Time: Feb 01, 2025 12:11 PM Reporting Lab: [address] [address] Performing Lab: [address] [address] [facility] URINALYS IS (STL-PB) URN.UROBIL INOGEN Normalmg /dL 02/12 Specimen Type: URINE No comment entered. Ordering Provider: HENNY ALEGRIA Report Released Date/Time: Feb 01, 2025 12:11 PM Reporting Lab: [address] [address] Performing Lab: [address] [address] [facility] URINALYS IS (STL-PB) HEMOGLOBIN [MASS/VOLU ME] IN URINE BY TEST STRIP Negative mg/dL 02/12 Specimen Type: URINE No comment entered. Ordering Provider: HENNY ALEGRIA Report Released Date/Time: Feb 01, 2025 12:11 PM Reporting Lab: [address] [address] Performing Lab: [address] [address] [facility] URINALYS IS (STL-PB) KETONES [MASS/VOLU ME] IN URINE BY TEST STRIP Negative mg/dL 02/12 Specimen Type: URINE No comment entered. Ordering Provider: HENNY ALEGRIA Report Released Date/Time: Feb 01, 2025 12:11 PM Reporting Lab: [address] [address] Performing Lab: [address] [address] [facility] URINALYS IS (STL-PB) URN.LEUK.E ST. Negative mg/dL 02/12 Specimen Type: URINE No comment entered. Ordering Provider: HENNY ALEGRIA Report Released Date/Time: Feb 01, 2025 12:11 PM Reporting Lab: [facility] [address] [facility] [address] Performing Lab: [place] [address] [facility] [address] [facility] URINALYS IS (STL-PB) SPECIFIC GRAVITY OF URINE 1.046 02/12 H Specimen Type: URINE No comment entered. Ordering Provider: HENNY ALEGRIA Report Released Date/Time: Feb 01, 2025 12:11 PM Reporting Lab: [place] [address] [facility] [address] Performing Lab: [place] [address] [facility] [address] [facility] QUANTIFE RINA-TB,4 TUBE .NIL - QUANTIFERO N 0.03 [IU]/mL 02/12 Specimen Type: BLOOD Comment: Negative test result. M. tuberculosi s complex infection unlikely. The Nil tube value reflects the background interferon gamma immune response of the patient's blood sample. This value has been subtracted from the patient's displayed TB and Mitogen results. Lower than expected results with the Mitogen tube prevent false-negat meme Quantiferon readings by detect- ing a patient with a potential immune suppressive condition and/or suboptimal pre-analyti celina specimen handling. The TB1 Antigen tube is coated with the M. tuberculosi s-specific antigens designed to elicit responses from TB antigen primed CD4+ helper T-lymphocyt es. The TB2 Antigen tube is coated with the M. tuberculosi s-specific antigens designed to elicit responses from TB antigen primed CD4+ helper and CD8+ cytotoxic T-lymphocyt es. For additional information , please refer to http://educ ation.[employer] .com/faq/FA Q204 (This link is being provided for information / educational purposes only.) Test Performed by [employer], [employer] [facility], [address] [place] [address] Jah Chapa M.D., Ph.D., Director of Laboratorie s , CLIA [id number] Ordering Provider: HENNY ALEGRIA Report Released Date/Time: Feb 01, 2025 12:11 PM Reporting Lab: [facility] [address] [facility] [address] Performing Lab: [facility] [address] [place] [address] [facility] QUANTIFE RINA-TB,4 TUBE .MITOGEN-N IL 7.90 [IU]/mL 02/12 Specimen Type: BLOOD Comment: Negative test result. M. tuberculosi s complex infection unlikely. The Nil tube value reflects the background interferon gamma immune response of the patient's blood sample. This value has been subtracted from the patient's displayed TB and Mitogen results. Lower than expected results with the Mitogen tube prevent false-negat meme Quantiferon readings by detect- ing a patient with a potential immune suppressive condition and/or suboptimal pre-analyti celina specimen handling. The TB1 Antigen tube is coated with the M. tuberculosi s-specific antigens designed to elicit responses from TB antigen primed CD4+ helper T-lymphocyt es. The TB2 Antigen tube is coated with the M. tuberculosi s-specific antigens designed to elicit responses from TB antigen primed CD4+ helper and CD8+ cytotoxic T-lymphocyt es. For additional information , please refer to http://educ ation.[employer] .com/faq/FA Q204 (This link is being provided for information / educational purposes only.) Test Performed by [employer] [place], [employer] [facility], [address] [place] [address] Jah Chapa M.D., Ph.D., Director of Laboratorie s , CLIA [id number] Ordering Provider: HENNY ALEGRIA Report Released Date/Time: Feb 01, 2025 12:11 PM Reporting Lab: [facility] [address] [facility] [address] Performing Lab: [facility] [id number] [place] [address] [facility] QUANTIFE RINA-TB,4 TUBE .QUANTIFER ON NEGATIVE 02/12 Specimen Type: BLOOD Comment: Negative test result. M. tuberculosi s complex infection unlikely. The Nil tube value reflects the background interferon gamma immune response of the patient's blood sample. This value has been subtracted from the patient's displayed TB and Mitogen results. Lower than expected results with the Mitogen tube prevent false-negat meme Quantiferon readings by detect- ing a patient with a potential immune suppressive condition and/or suboptimal pre-analyti celina specimen handling. The TB1 Antigen tube is coated with the M. tuberculosi s-specific antigens designed to elicit responses from TB antigen primed CD4+ helper T-lymphocyt es. The TB2 Antigen tube is coated with the M. tuberculosi s-specific antigens designed to elicit responses from TB antigen primed CD4+ helper and CD8+ cytotoxic T-lymphocyt es. For additional information , please refer to http://educ ation.Optimal [employer] .com/faq/FA Q204 (This link is being provided for information / educational purposes only.) Test Performed by [facility], [employer] [facility], [address] [place] [address] Jah Chapa M.D., Ph.D., Director of Laboratorie s , [facility] [id number] Ordering Provider: HENNY ALEGRIA Report Released Date/Time: Feb 01, 2025 12:11 PM Reporting Lab: [facility] [address] [place] [address] Performing Lab: [facility] [address] [place] [address] [facility] QUANTIFE RINA-TB,4 TUBE .TB1-NIL 0.00 [IU]/mL 02/12 Specimen Type: BLOOD Comment: Negative test result. M. tuberculosi s complex infection unlikely. The Nil tube value reflects the background interferon gamma immune response of the patient's blood sample. This value has been subtracted from the patient's displayed TB and Mitogen results. Lower than expected results with the Mitogen tube prevent false-negat meme Quantiferon readings by detect- ing a patient with a potential immune suppressive condition and/or suboptimal pre-analyti celina specimen handling. The TB1 Antigen tube is coated with the M. tuberculosi s-specific antigens designed to elicit responses from TB antigen primed CD4+ helper T-lymphocyt es. The TB2 Antigen tube is coated with the M. tuberculosi s-specific antigens designed to elicit responses from TB antigen primed CD4+ helper and CD8+ cytotoxic T-lymphocyt es. For additional information , please refer to http://Query Hunter/faq/FA Q204 (This link is being provided for information / educational purposes only.) Test Performed by [employer] [place], [employer] [facility], [address] [place] [address] Jah Chapa M.D., Ph.D., Director of Laboratorie s , [place] [id number] Ordering Provider: HENNY ALEGRIA Report Released Date/Time: Feb 01, 2025 12:11 PM Reporting Lab: [facility] [address] [place] [address] Performing Lab: [facility] [id number] [place] [address] [facility] QUANTIFE RINA-TB,4 TUBE .TB2-NIL <0.00[IU ]/mL 02/12 Specimen Type: BLOOD Comment: Negative test result. M. tuberculosi s complex infection unlikely. The Nil tube value reflects the background interferon gamma immune response of the patient's blood sample. This value has been subtracted from the patient's displayed TB and Mitogen results. Lower than expected results with the Mitogen tube prevent false-negat meme Quantiferon readings by detect- ing a patient with a potential immune suppressive condition and/or suboptimal pre-analyti celina specimen handling. The TB1 Antigen tube is coated with the M. tuberculosi s-specific antigens designed to elicit responses from TB antigen primed CD4+ helper T-lymphocyt es. The TB2 Antigen tube is coated with the M. tuberculosi s-specific antigens designed to elicit responses from TB antigen primed CD4+ helper and CD8+ cytotoxic T-lymphocyt es. For additional information , please refer to http://Bartermill.com .[employer] Entertainment/faq/FA Q204 (This link is being provided for information / educational purposes only.) Test Performed by [employer] [place], [employer] [facility] [place], [address] [place] [address] Jah Chapa M.D., Ph.D., Director of Laboratorie s , CLIA [id number] Ordering Provider: HENNY ALEGRIA Report Released Date/Time: Feb 01, 2025 12:11 PM Reporting Lab: [address] [address] Performing Lab: [address] [facility] NICOTINE AND METABOLI WICHO NICOTINE [MASS/VOLU ME] IN SERUM OR PLASMA <2ng/mL 02/12 Specimen Type: SERUM Comment: Reference Ranges(ng/m L): Non-Smoker Active Tobacco User < or = to 4 2-10 Reference Ranges(ng/m L): Non-Smoker Active Tobacco User < or = to 8 16-145 This test was developed and its analytical performance characteris tics have been determined by [employer] [facility] [place], [place]. It has not been cleared or approved by the U.S. Food and Drug Administrat ion. This assay has been validated pursuant to the CLIA regulations and is used for clinical purposes. Test Performed by [employer], [employer] [facility] [place], [address] [place] [address] Jah Chapa M.D., Ph.D., Director of Laboratorie s , CLIA [id number] Ordering Provider: HENNY ALEGRIA Report Released Date/Time: Feb 01, 2025 12:11 PM Reporting Lab: [address] [address] Performing Lab: [address] [facility] NICOTINE AND METABOLI WICHO COTININE [MASS/VOLU ME] IN SERUM OR PLASMA <2ng/mL 02/12 Specimen Type: SERUM Comment: Reference Ranges(ng/m L): Non-Smoker Active Tobacco User < or = to 4 2-10 Reference Ranges(ng/m L): Non-Smoker Active Tobacco User < or = to 8 16-145 This test was developed and its analytical performance characteris tics have been determined by [employer] [place], [place]. It has not been cleared or approved by the U.S. Food and Drug Administrat ion. This assay has been validated pursuant to the CLIA regulations and is used for clinical purposes. Test Performed by [facility], [employer] [facility], [address] [address], [place] Jah Chapa M.D., Ph.D., Director of Laboratorie s , CLIA [id number] Ordering Provider: HENNY ALEGRIA Report Released Date/Time: Feb 01, 2025 12:11 PM Reporting Lab: [address] [address] Performing Lab: [facility] [id number] [place] [address] [facility] CMV(IGG & IGM)(STL ) CYTOMEGALO VIRUS IGG AB [TITER] IN SERUM OR PLASMA POSITIVE 02/12 Specimen Type: SERUM No comment entered. Ordering Provider: HENNY ALEGRIA Report Released Date/Time: Feb 01, 2025 12:11 PM Reporting Lab: [place] [address] [facility] [address] Performing Lab: [address] [address] [facility] CMV(IGG & IGM)(STL ) CYTOMEGALO VIRUS IGM AB [TITER] IN SERUM OR PLASMA NEGATIVE 02/12 Specimen Type: SERUM No comment entered. Ordering Provider: HENNY ALEGRIA Report Released Date/Time: Feb 01, 2025 12:11 PM Reporting Lab: [place] [address] [facility] [address] Performing Lab: [place] [address] [facility] [address] [facility] HEPATITI S B SURFACE AB PNL HEPATITIS B VIRUS SURFACE AB [PRESENCE] IN SERUM BY IMMUNOASSA Y Nonreact ivem[IU] /mL 02/12 Specimen Type: SERUM Comment: The listed sex of this patient may not be a typical indication for this test. Therefore, reference ranges or interpretiv e criteria listed may not be valid. Clinical correlation suggested. Ordering Provider: HENNY ALEGRIA Report Released Date/Time: Feb 01, 2025 12:11 PM Reporting Lab: [facility] [address] [facility] [address] Performing Lab: [place] [address] [facility] [address] [facility] HEP HB S Ag ([place]) (STL) HEPATITIS B VIRUS SURFACE AG [PRESENCE] IN SERUM OR PLASMA BY IMMUNOASSA Y Nonreact meme 02/12 Specimen Type: SERUM Comment: The listed sex of this patient may not be a typical indication for this test. Therefore, reference ranges or interpretiv e criteria listed may not be valid. Clinical correlation suggested. Ordering Provider: HENNY ALEGRIA Report Released Date/Time: Feb 01, 2025 12:11 PM Reporting Lab: [address] [address] Performing Lab: [address] [address] [facility] HEP C Ab HCV Ab (STL) HEPATITIS C VIRUS AB [PRESENCE] IN SERUM Nonreact meme 02/12 Specimen Type: SERUM Comment: The listed sex of this patient may not be a typical indication for this test. Therefore, reference ranges or interpretiv e criteria listed may not be valid. Clinical correlation suggested. Ordering Provider: HENNY ALEGRIA Report Released Date/Time: Feb 01, 2025 12:11 PM Reporting Lab: [facility] [address] [facility] [address] Performing Lab: [place] [address] [facility] [address] [facility] HIV COMBO FOURTH GENERATI ON (STL) HIV 1+2 AB+HIV1 P24 AG [PRESENCE] IN SERUM OR PLASMA BY IMMUNOASSA Y Nonreact meme 02/12 Specimen Type: SERUM No comment entered. Ordering Provider: HENNY ALEGRIA Report Released Date/Time: Feb 01, 2025 12:11 PM Reporting Lab: [facility] [address] [facility] [address] Performing Lab: [facility] [address] [facility] [address] [facility] Vital Signs Combined list of inpatient and outpatient Vital Signs from Department of Defense and Veterans Affairs, ranging from 12 months to all on record, depending upon the facility. Vital Sign Value Date Comments Source SYSTOLIC BLOOD PRESSURE 108 03/27/2025 08:15:16 [facility] DIASTOLIC BLOOD PRESSURE 74 03/27/2025 08:15:16 [facility] PULSE OXIMETRY 99 03/27/2025 08:15:16 [facility] WEIGHT 179.6 03/27/2025 08:15:16 [facility] BMI 24 kg/m2 03/27/2025 08:15:16 [facility] PAIN 0 03/27/2025 08:15:16 [facility] TEMPERATURE 96.9 03/27/2025 08:15:16 [facility] PULSE 99 03/27/2025 08:15:16 [facility] RESPIRATION 18 03/27/2025 08:15:16 [facility] SYSTOLIC BLOOD PRESSURE 120 01/17/2025 09:01:29 [facility] DIASTOLIC BLOOD PRESSURE 85 01/17/2025 09:01:29 [facility] PULSE OXIMETRY 99 01/17/2025 09:01:29 [facility] WEIGHT 180.8 01/17/2025 09:01:29 [facility] BMI 25 kg/m2 01/17/2025 09:01:29 [facility] PAIN 2 01/17/2025 09:01:29 [facility] TEMPERATURE 98.2 01/17/2025 09:01:29 [facility] PULSE 96 01/17/2025 09:01:29 [facility] RESPIRATION 16 01/17/2025 09:01:29 [facility] SYSTOLIC BLOOD PRESSURE 92 01/09/2025 07:40:32 [facility] DIASTOLIC BLOOD PRESSURE 60 01/09/2025 07:40:32 [facility] PULSE OXIMETRY 100 01/09/2025 07:40:32 [facility] WEIGHT 177.8 01/09/2025 07:40:32 [facility] BMI 24 kg/m2 01/09/2025 07:40:32 [facility] TEMPERATURE 97.3 01/09/2025 07:40:32 [facility] PULSE 99 01/09/2025 07:40:32 [facility] RESPIRATION 18 01/09/2025 07:40:32 [facility] SYSTOLIC BLOOD PRESSURE 118 10/27/2024 12:16:00 [facility] DIASTOLIC BLOOD PRESSURE 82 10/27/2024 12:16:00 [facility] PAIN 3 10/27/2024 12:16:00 [facility] TEMPERATURE 98 10/27/2024 12:16:00 [facility] PULSE 98 10/27/2024 12:16:00 [facility] RESPIRATION 18 10/27/2024 12:16:00 [facility] SYSTOLIC BLOOD PRESSURE 117 09/18/2024 06:42:38 [facility] DIASTOLIC BLOOD PRESSURE 80 09/18/2024 06:42:38 [facility] PULSE OXIMETRY 100 09/18/2024 06:42:38 [facility] ALISON [facility] WEIGHT 159 09/18/2024 06:42:38 [facility] Maggy VELEZ [facility] BMI 22 kg/m2 09/18/2024 06:42:38 [facility] Mag[facility] VELEZ [facility] PAIN 4 09/18/2024 06:42:38 [facility] Maggy VELEZ [facility] HEIGHT 72 09/18/2024 06:42:38 [facility] Maggy VELEZ [facility] TEMPERATURE 97.9 09/18/2024 06:42:38 [facility] ALISON VELEZ [facility] Encounters Combined list of: 1) Encounters from Department of [facility] Affairs facilities going backup to the last 18 months, not all [facility] inpatient encounters are included; 2) Encounters from the Department of [facility] facilities going backup to 280 months. Location Location Details Encounter Type Encounter Number Reason For Visit Attending Provider ADM Date DC Date Status Disposition Source [facility]) OUTPATIENT [id number] ELIJAH Benavides 04/07 Released w/o Limitations [facility] [address] [place] [address] Raman BOYCE [facility] [facility] OUTPATIENT [id number] left foot pain fr YONNY Bowling 09/22 Released w/o Limitations [address] [place] [address] Raman BOYCE [facility] [facility] [address] [place] [address] Raman CHAUDHARYB [facility] [facility] [place] OUTPATIENT [id number] upper back pain BARBI GUADALUPE 02/26 Released w/o Limitations [address] [place] [address] Raman CHAUDHARYB [facility] [facility] [address] [place] [address] [employer] [facility] [facility] [place] OUTPATIENT [id number] abd pain... .[id number]..... GELA LEMONS 08/20 Released w/o Limitations [address] [place] [address] [employer] [facility] [facility] [place] [address] [place] [address] [employer] [facility] [facility] [place] OUTPATIENT [id number] Abdomen pain-po ssibly associa te w/appen efrem [phone] VISHNU CHAN 02/25 Released w/o Limitations [address] [place] [address] Raman [place] [facility] [place] [address] [place] [address] Raman BOYCE [facility] [facility] [place] OUTPATIENT [id number] growth on back of neck [id number] VJ TARIQ 03/26 Released w/o Limitations [address] [place] [address] Raman BOYCE [facility] [facility] [place] [address] [place] [address] Raman CHAUDHARYB [facility] [facility] [place] TELE CONSULT [id number] Notes Entered by: ADAM BROWER 28 Jul 2012 0820 ------- ------- ------- ------- -- Eye redness /discom [place] alexey/2 [id number] /BARBI Lombardi 07/28 Referred for Appointment [address] [place] [address] Raman CARLI [facility] [facility] [place]) [address] [place] [address] Raman BOYCE [facility]Sco [place] [facility] [place]) OUTPATIENT [id number] physica l - [id number] SAGAR BENÍTEZ 05/03 Released w/o Limitations [address] [place] [address] Raman BOYCE [facility] [facility] [place] [address] [place] [address] Raman BOYCE [facility] [facility] [place] OUTPATIENT [id number] physica l- ALEIDA ALY 06/10 Released w/o Limitations [address] [place] [address] Raman CHAUDHARYB [facility] [facility] [place] [address] [place] [address] Raman CHAUDHARYB [facility]co [place] [facility] [place] OUTPATIENT [id number] high cholest errol, high blood pressur e FRANDY BUSTILLO 09/25 Released w/o Limitations [address] [place] [address] Raman CHAUDHARYB [facility]S cott [facility] [place] [address] [place] [address] Raman JETB [facility] [facility] [place] OUTPATIENT [id number] f/u high bp CINDY SOTO LT 10/22 Released w/o Limitations [address] [place] [address] Group Raman [place] [place] [facility] [place] [address] [place] [address] Raman CHAUDHARYB [facility] [place] [facility] [place] OUTPATIENT [id number] f/u high bp CARINE THOMPSON 11/04 Released w/o Limitations [address] [place] [address] Raman [place]AUDHARYB [place] [place] [facility] [facility] [place] [address] [place] [address] Raman CHAUDHARYB [facility] [place]Sco tt [facility] Fam Res Tm Red) TELE CONSULT [id number] Notes Entered by: LAURO HANEY 06 Nov 2014 1047 ------- ------- ------- ------- -- Diabeti c Educati onASHOK TEJADA 11/06 Referred for Appointment [address] [place] [address] Raman BOYCE [facility] [place]S [facility]am [facility]m [facility]) [address] [place] [address] Raman CHAUDHARYB [facility] [place] [facility] [place] OUTPATIENT [id number] f/u hyperte nsion CARINE THOMPSON 12/11 Released w/o Limitations [address] [place] [address] Raman BOYCE [facility] [facility] [place] [address] [place] [address] Raman BOYCE [facility] [facility] [place] [place]) TELE CONSULT [id number] Notes Entered by: LAURO HANEY 13 Apr 2015 1401 ------- ------- ------- ------- -- Lab results CARINE THOMPSON 04/[address] [place] [address] Group Raman CHAUDHARYB [facility]S cott [facility] [place]) [address] [place] [address] Raman [facility]AUDHARYB [facility] [facility] [place] OUTPATIENT [id number] f/u for blood pressur e/ CARINE THOMPSON 04/18 Released w/o Limitations [address] [place] [address] Raman CHAUDHARYB [facility] [facility] [place] [address] [place] [address] Raman CHAUDHARYB [facility]Sco tt OF Fam Res Tm Green) TELE CONSULT [id number] Notes Entered by: CASEY JACKSON 09 Jun 2015 1158 ------- ------- ------- ------- -- Sx- Chest Pains (ER refusal )/Doug bryan/61 8.222.2 599 TOMMY ANGELO 06/[address] [place] [address] Raman [facility] [place] [address] [place] [address] Raman B [facility]co [place] [facility] [place] OUTPATIENT [id number] sternal pain daily x30 min CARINE THOMPSON 06/10 Released w/o Limitations [address] [place] [address] Raman JETDiana [facility] [facility] [place]) [address] [place] [address] Raman B [facility]co [place] [facility] [place] [place]) TELE CONSULT [id number] Notes Entered by: EMERALD REID 20 Jun 2015 0919 ------- ------- ------- ------- -- Network Results - CARDIOL OGY- 06/17/15 CARINE THOMPSON 06/[address] [place] [address] Raman [facility])([facility] [place] [place]) [address] [place] [address] Raman B [facility] [facility] [place] [place]) TELE CONSULT [id number] Notes Entered by: LAURO HANEY 17 Jul 2015 1517 ------- ------- ------- ------- -- Lab Results CARINE THOMPSON 07/[address] [place] [address] Raman BOYCE [facility]S cott [facility] [place] [place]) [address] [place] [address] Raman JETB [facility] [place]Sco [place] [facility] [place] OUTPATIENT [id number] f/u for bp [id number] CARINE THOMPSON 07/23 Released w/o Limitations [address] [place] [address] Raman BOYCE [facility] [facility] [place] [address] [place] [address] Raman BOYCE [facility]co [place] [facility] [place] TELE CONSULT [id number] Notes Entered by: MORGANKELLY MOO Zhao 15 Sep 2015 0951 ------- ------- ------- ------- -- Network Results -GASTRO ENTEROL OGY 08/29/15 CARINE THOMPSON 09/[address] [place] [address] Raman Diana [facility]S cott OF Fam Res [employer]m [place]) [address] [place] [address] Raman [facility])([place]co [place] [facility] [place] TELE CONSULT [id number] Notes Entered by: CATALINA SNYDER 22 Sep 2015 0727 ------- ------- ------- ------- -- Blood Pressur e Med Refill/ Dr. Carrington good/ [phone] TOMMY ANGELO 09/[address] [place] [address] [facility] [place] [address] [place] [address])(Sco tt [facility] [place]) TELE CONSULT [id number] Notes Entered by: MORGANKELLY MOO Zhao 04 Nov 2015 0814 ------- ------- ------- ------- -- Network Results -GASTRO ENTEROL OGY 10/24/15 CARINE AL 11/[address] [place] [address] [facility] [place] [place]) [address] [place] [address] Raman [facility])([place]co [place] [facility] [place] [place]) TELE CONSULT [id number] Notes Entered by: LAURO HANEY 16 Jan 2016 1125 ------- ------- ------- ------- -- Lab Results CARINE THOMPSON 01/[address] [place] [address] Raman JETDiana [facility]S cott [facility] [place]) [address] [place] [address] Raman [facility])(Sco [facility] [place]) OUTPATIENT [id number] f/u on high BP 222.259 9 CARINE THOMPSON 01/25 Released w/o Limitations [facility] Raman [facility])([facility] Res [facility]) [facility] Raman [facility])([facility] Internal Medicine ) OUTPATIENT [id number] F/U for BP meds [id number] ROM KUMAR 05/04 Released w/o Limitations [address] [place] [address] Group Raman [facility])([facility] Intern[facility] l Medicin e Tm) [address] [place] [address] [facility])([facility] Internal Medicine ) TELE CONSULT [id number] Notes Entered by: MARLON POPE 07 Sep 2016 0729 ------- ------- ------- ------- -- Med refill/ Yulissa/ [id number] 9/AYAKA Díaz 09/07 Referred for Appointment [address] [place] [address] Group Raman [facility])([facility] Medicin [facility] Tm) [address] [place] [address])([facility] Internal Medicine ) TELE CONSULT [id number] Notes Entered by: Rebecca GOODWIN 09 Sep 2016 1116 ------- ------- ------- ------- -- Medicat ion Not in pharmac y/ Yulissa/ - AYAKA Rojas 09/09 Referred for Appointment [address] [place] [address] Group Raman [facility])([facility] Intern[facility] Medicin e Tm) [address] [place] [address] Raman [facility])([facility] Internal Medicine ) OUTPATIENT [id number] f/u blood pressur e / HORACE BEDOYA V 05/03 Released w/o Limitations [address] [place] [address] [facility])(S [facility] Interna l Medicin e Tm) [address] [place] [address])([facility] Internal Medicine ) TELE CONSULT [id number] Notes Entered by: EFRAIN LOPEZ 23 Feb 2018 0927 ------- ------- ------- ------- -- Order labs - Celena - [id number] -[id number] [id number] [phone] - tsg LUIS VILLEGAS 02/23 Referred for Appointment [address] [place] [address] Raman [facility])(S cott Interna l Medicin e Tm) [address] [place] [address])([facility] Internal Medicine ) OUTPATIENT [id number] annual check up HORACE BEDOYA V 03/14 Released w/o Limitations [address] [place] [address] [facility])(S cott Interna l Medicin e Tm) [address] [place] [address])([facility] Internal Medicine ) TELE CONSULT [id number] Notes Entered by: TANISHA MAYO 31 Jan 2019 1318 ------- ------- ------- ------- -- Referra l request /lubna e/[id number] MORRIS Pendleton 01/31 Other Not Elsewhere Classified [facility] Medical [facility])(S cott Interna l Medicin e Tm) [address] [place] [address])([facility] Internal Medicine ) OUTPATIENT [id number] blood pressur e / ROM KUMAR 04/17 Released w/o Limitations [address] [place] [address])(S cott Interna l Medicin e Tm) [address] [place] [address])([facility] Internal Medicine ) OUTPATIENT [id number] low back pain and labs [phone] FILIPPO FLANNERY 01/18 Released w/o Limitations [address] [place] [address])(S cott Interna l Medicin e Tm) [address] [place] [address])([facility] Internal Medicine ) TELE CONSULT [id number] Notes Entered by: DEBBIE MEDEIROS 18 Feb 2020 1056 ------- ------- ------- ------- -- SX- Freddyi ishaan dean-Nause a-Janelle doss BP x1-2mo/ Rush acharya/ - ajh HECTOR BARLOW 02/[address] [place] [address])(S cott Interna l Medicin e Tm) [address] [place] [address])([facility] Internal Medicine ) TELE CONSULT [id number] Notes Entered by: RICA RODGERS RET 22 Apr 2020 1307 ------- ------- ------- ------- -- Appt Request for testing /luba /618. [phone] 9*AYAKA Coughlin 04/22 Referred for Appointment [address] [place] [address])(S cott Interna l Medicin e Tm) [address] [place] [address])([facility] Internal Medicine ) OUTPATIENT [id number] Virtual - persist ent cough on taking a deep breath x 1 month - [id number] KRYSTLE APONTE 09/23 Released w/o Limitations [address] [place] [address])(S cott Interna l Medicin e Tm) [address] [place] [address])([facility] Internal Medicine ) TELE CONSULT [id number] Notes Entered by: Shazia APONTE 24 Sep 2020 0801 ------- ------- ------- ------- -- Pneumon FILIPPO Valdes 09/[address] [place] [address])(S cott Interna l Medicin e Tm) [address] [place] [address] Raman [facility])([facility] Internal Medicine ) OUTPATIENT [id number] Virtual Appt - persist ent cough x months - [phone] FILIPPO FLANNERY 10/20 Released w/o Limitations [address] [place] [address])(S cott Interna l Medicin e Tm) [address] [place] [address])([facility] Internal Medicine ) TELE CONSULT [id number] Notes Entered by: EUGENIA JEAN 08 Jan 2021 1459 ------- ------- ------- ------- -- Follow up imaging . ABHISHEK FOURNIER aNra 01/08 Other Not Elsewhere Classified [address] [place] [address])(S cott Interna l Medicin e Tm) [address] [place] [address])([facility] Internal Medicine ) TELE CONSULT [id number] Notes Entered by: EUGENIA JEAN 13 Jan 2021 1312 ------- ------- ------- ------- -- CT results FILIPPO FLANNERY 01/[address] [place] [address])(S cott Interna l Medicin e Tm) [address] [place] [address])([facility] Internal Medicine ) TELE CONSULT [id number] Notes Entered by: JOHN YAN 15 Jan 2021 0939 ------- ------- ------- ------- -- SX Cancer DX/ PRESTON/ Fax Request / Rush acharya/ MORRIS WOODSON 01/15 Other Not Elsewhere Classified [address] [place] [address])(S cott Interna l Medicin e Tm) [address] [place] [address])([facility] Internal [facility]) TELE CONSULT [id number] Notes Entered by: RICA RODGERS RET 19 Jan 2021 0938 ------- ------- ------- ------- -- Discuss CAT scan results /Luba rs/610. [id number] 9 FILIPPO FLANNERY 01/[address] [place] [address])(S cott Interna l Medicin e Tm) [address] [place] [address])([facility] Internal Medicine ) TELE CONSULT [id number] Notes Entered by: DEBBIE MEDEIROS 02 Feb 2021 1005 ------- ------- ------- ------- -- Med Renewal Request / Rush s/ - ajh LUIS VILLEGAS 02/02 Other Not Elsewhere Classified [address] [place] [address] Raman [facility])(S cott Interna l Medicin e Tm) [address] [place] [address] Raman [facility])([facility] Internal Medicine ) OUTPATIENT [id number] [facility]618-22 [id number] bump on index finger , left hand getting bigger FILIPPO FLANNERY 02/16 Released w/o Limitations [address] [place] [address] Raman [facility])(S cott Interna l Medicin e Tm) [address] [place] [address] Raman [facility])([facility] Internal Medicine ) TELE CONSULT [id number] Notes Entered by: EUGENIA JEAN 24 Feb 2021 1419 ------- ------- ------- ------- -- Inciden mirtha finding on CT FILIPPO FLANNERY 02/[address] [place] [address] Raman [facility])(S cott Interna l Medicin e Tm) [address] [place] [address] Raman [facility])([facility] Internal Medicine ) TELE CONSULT [id number] Notes Entered by: EUGENIA JEAN 26 Feb 2021 1417 ------- ------- ------- ------- -- Results of Ultraso und FILIPPO FLANNERY 02/[address] [place] [address] Raman [facility])(S cott Interna l Medicin e Tm) [address] [place] [address] Raman [facility])([facility] Internal Medicine ) TELE CONSULT [id number] Notes Entered by: MATT PRUITT 27 Feb 2021 1020 ------- ------- ------- ------- -- Medical Note Request /Luba /618. [phone] 9 LUIS VILLEGAS 02/27 Other Not Elsewhere Classified [address] [place] [address] Raman [facility])(S cott Interna l Medicin e Tm) [address] [place] [address] Raman [facility])([facility] Internal Medicine ) OUTPATIENT [id number] Virtual -reques royce winter for dermato logy-61 8.222.2 599 FILIPPO FLANNERY 03/17 Released w/o Limitations [address] [place] [address])(S cott Interna l Medicin e Tm) [address] [place] [address])([facility] Internal Medicine ) TELE CONSULT [id number] Notes Entered by: EFRAIN LOPEZ 31 Mar 2021 1410 ------- ------- ------- ------- -- F/U Destinee - olayinka Beverly s - - tsg MORRIS WOODSON 03/31 Other Not Elsewhere Classified [address] [place] [address])(S cott Interna l Medicin e Tm) [address] [place] [address])([facility] Internal Medicine ) TELE CONSULT [id number] Notes Entered by: FABIOLA PONCE 14 Apr 2021 1304 ------- ------- ------- ------- -- Network results Dermato logy 021 KSP FILIPPO FLANNERY 04/[address] [place] [address])(S cott Interna l Medicin e Tm) [address] [place] [address])([facility] Internal Medicine ) TELE CONSULT [id number] Notes Entered by: SOFÍA ESCALERA 24 Apr 2021 0851 ------- ------- ------- ------- -- Network results Otolary ngology [ENT] 021 SLC FILIPPO FLANNERY 04/[address] [place] [address])(S cott Interna l Medicin e Tm) [address] [place] [address])([facility] Internal Medicine ) TELE CONSULT [id number] Notes Entered by: TANISHA MAYO 13 May 2021 1322 ------- ------- ------- ------- -- referra l request /luba rs/[id number] MORRIS Pendleton 05/13 Other Not Elsewhere Classified [address] [place] [address] [facility])(S cott Interna l Medicin e Tm) [address] [place] [address])([facility] Internal Medicine ) TELE CONSULT [id number] Notes Entered by: JOHN YAN 26 May 2021 0915 ------- ------- ------- ------- -- SX Chest nodules / /Referr al Request / Rush s/ [phone] AYAKA ACEVEDO 05/26 Other Not Elsewhere Classified [address] [place] [address])(S cott Interna l Medicin e Tm) [address] [place] [address])([facility] Internal Medicine ) TELE CONSULT [id number] Notes Entered by: LATRICE TAVERAS 27 May 2021 1045 ------- ------- ------- ------- -- Cardiol ogy LUIS Monet 05/27 Other Not Elsewhere Classified [address] [place] [address])(S cott Interna l Medicin e Tm) [address] [place] [address])([facility] Internal Medicine ) TELE CONSULT [id number] Notes Entered by: CHRISTIANO BARTON 13 Jul 2021 1445 ------- ------- ------- ------- -- Network results Cardiol ogy 021 FILIPPO GRAHAM 07/[address] [place] [address])(S cott Interna l Medicin e Tm) [address] [place] [address])([facility] Internal Medicine ) TELE CONSULT [id number] Notes Entered by: FABIOLA PONCE 21 Jul 2021 1553 ------- ------- ------- ------- -- Network results Gastroe nterolo gy 021 FILIPPO SEGOVIA 07/[address] [place] [address])(S cott Interna l Medicin e Tm) [address] [place] [address])([facility] Internal Medicine ) TELE CONSULT [id number] Notes Entered by: CHRSITIANO BARTON 28 Jul 2021 1225 ------- ------- ------- ------- -- Network results Gastroe nterolo gy 021 FILIPPO GRAHAM 07/[address] [place] [address])(S cott Interna l Medicin e Tm) [address] [place] [address])([facility] Internal Medicine ) TELE CONSULT [id number] Notes Entered by: FABIOLA PONCE 04 Aug 2021 1212 ------- ------- ------- ------- -- Network results Cardiol ogy 021 [facility] FILIPPO FLANNERY 08/[address] [place] [address])(S cott Interna l Medicin e Tm) [address] [place] [address])([facility] Internal Medicine ) OUTPATIENT [id number] both legs tingeli ng,back pain, f2f appt FILIPPO FLANNERY 09/15 Released w/o Limitations [address] [place] [address])(S cott Interna l Medicin e Tm) [address] [place] [address])([facility] Internal Medicine ) TELE CONSULT [id number] Notes Entered by: EUGENIA JEAN 18 Sep 2021 1106 ------- ------- ------- ------- -- Lab results FILIPPO FLANNERY 09/[address] [place] [address])(S cott Interna l Medicin e Tm) [address] [place] [address])([facility] Internal Medicine ) TELE CONSULT [id number] Notes Entered by: MATT PRUITT 24 Sep 2021 0812 ------- ------- ------- ------- -- Rx Rubin /LUBA /618. 222.259 9 MORRIS WOODSON 09/24 Medication Refill Forwarded [address] [place] [address])(S cott Interna l Medicin e Tm) [address] [place] [address])([facility] Internal Medicine ) TELE CONSULT [id number] Notes Entered by: DEBBIE MEDEIROS 28 Sep 2021 1029 ------- ------- ------- ------- -- Medicat ion Not in Pharmac y/ Rush / - MERARY Terrell 09/28 Other Not Elsewhere Classified [address] [place] [address])(S cott Interna l Medicin e Tm) [address] [place] [address])([facility] Internal Medicine ) TELE CONSULT [id number] 8 Notes Entered by: JOHN YAN 21 Oct 2021 1032 ------- ------- ------- ------- -- Phone Call Request / Rush s/ SAMANTHA COTTON 10/21 Other Not Elsewhere Classified [address] [place] [address])(S cott Interna l Medicin e Tm) [address] [place] [address])([facility] Internal Medicine ) TELE CONSULT [id number] Notes Entered by: DEBBIE MEDEIROS 12 Nov 2021 0842 ------- ------- ------- ------- -- Med Change Request - Chest CT Test F/U - Special ist F/U/ [facility] s/ [id number] [phone] LUIS VILLEGAS 11/12 Other Not Elsewhere Classified [address] [place] [address])(S cott Interna l Medicin e Tm) [address] [place] [address] Raman [facility])([facility] ) OUTPATIENT [id number] Virtual discuss radiolo gy results FILIPPO FLANNERY 11/12 Released w/o Limitations [address] [place] [address])(S cott Interna l Medicin e Tm) [address] [place] [address])([facility] Internal Medicine ) TELE CONSULT [id number] Notes Entered by: SARAI LY 28 Dec 2021 1112 ------- ------- ------- ------- -- Network results Cardiol ogy 022 BF FILIPPO FLANNERY 12/[address] [place] [address])(S cott Interna l Medicin e Tm) [address] [place] [address])(Fam hong Med Tm B Non-AD BCC) TELE CONSULT [id number] Notes Entered by: TRAN DELGADO 09 Aug 2022 1129 ------- ------- ------- ------- -- Patient Dischar MARIANO Prasad 08/[address] [place] [address] Raman [facility])(F amily Med Tm B Non-AD BCC) [address] [place] [address])([facility] Internal Medicine ) OUTPATIENT [id number] [facility] r to review medical conditi ons F2F CARMEN LEDBETTER 09/10 Released w/o Limitations [address] [place] [address])(S cott Interna l Medicin e Tm) [address] [place] [address] Raman [facility])([facility] Internal Medicine ) TELE CONSULT [id number] Notes Entered by: RGEG ATKINS 06 Oct 2022 1140 ------- ------- ------- ------- -- NOTIFIC ATIONS OF MEDICAL RECORD UPLOADE CARMEN STORY 10/[address] [place] [address])(S cott Interna l Medicin e Tm) [address] [place] [address])([facility] Internal Medicine ) TELE CONSULT [id number] Notes Entered by: DEBBIE MEDEIROS 25 Oct 2022 1424 ------- ------- ------- ------- -- Cardiol ogy Referra l Renewal Req -Appt Alicia/ [phone] CHETAN HYDE Samantha 10/25 Other Not Elsewhere Classified [address] [place] [address])(S cott Interna l Medicin e Tm) [address] [place] [address])([facility] Internal Medicine ) OUTPATIENT [id number] dermato logy referra l/under skin bumps CARMEN LEDBETTER 10/27 Released w/o Limitations [address] [place] [address])(S cott Interna l Medicin e Tm) [address] [place] [address])([facility] [facility] TELE CONSULT [id number] Notes Entered by: GREG ATKINS 08 Nov 2022 1300 ------- ------- ------- ------- -- NOTIFIC ATION OF MEDICAL RECORD UPLOADE CARMEN MAKI 11/[address] [place] [address])([facility]) [address] [place] [address])([facility] Internal Medicine ) TELE CONSULT [id number] Notes Entered by: MARISOL PINEDA 24 Nov 2022 1527 ------- ------- ------- ------- -- Network results Cardiol ogy 022 CARMEN CARPENTER 11/[address] [place] [address])([facility]) [address] [place] [address])([facility] Internal Medicine ) TELE CONSULT [id number] Notes Entered by: CHRISSY CONLEY 14 Dec 2022 1338 ------- ------- ------- ------- -- Retro Referra maggy Vieira /Alicia/ (Maira) CHANDANA MONTE AMANDA 12/14 Other Not Elsewhere Classified [address] [place] [address])([facility]) [address] [place] [address])([facility] Internal Medicine ) TELE CONSULT [id number] 6 Notes Entered by: JOHN YAN 18 Jan 2023 1011 ------- ------- ------- ------- -- Olayinka Conklin / Alicia/ CHETAN HYDE Samantha 01/18 Other Not Elsewhere Classified [address] [place] [address])([facility]) [address] [place] [address])([facility] Internal Medicine ) TELE CONSULT [id number] 4 Notes Entered by: ALEIDA DAVIS 11 Feb 2023 1312 ------- ------- ------- ------- -- Network results Dermato logy 023 CARMEN BROWNING 02/[address] [place] [address])([facility]) [facility] OFFICE O/P EST HI 40 MIN 89355-4.65 [id number] Diagnos is: ICD-10- CM I10 Essenti al (primar y) hyperte MICKIE Mcguire 12/28 [facility] En[facility] [id number] [id number] LEXI PRADO 01/30 [facility] Q[facility] OL DIG ASSMT&MGMT 11 78091-1.65 [id number] 9 Diagnos is: ICD-10- CM I95.9 Hypoten ibeth, unspeci connie NOEL LU 01/31 [facility] Inpatient Encounter [id number] [id number] Admit Reason: ACUTE ON CHRONIC HEART FAILURE [facility] 02/09 [facility] 1ST HOSP IP/OBS MODERATE 55 82389-3.65 [id number] 0 KOSTA MIRANDA 02/09 [facility] QNHP OL DIG ASSMT&MGMT 5-10 42248-0.65 [id number] 1 Diagnos is: ICD-10- CM I95.9 Hypoten ibeth, unspeci connie LAURA WILLOUGHBY 02/09 [facility] Inpatient Encounter 77004-7.65 [id number] 6 KOSTA MIRANDA 02/09 [facility] Inpatient Encounter [id number] [id number] 6 ANGELO [facility] 02/09 [facility] Inpatient Encounter 59257-7.65 [id number] 7 ANGELO [facility] 02/09 [facility] Inpatient Encounter 14225-2.65 [id number] 3 ANGELO [facility] 02/09 [facility] IP/OBS CNSLTJ NEW/EST MOD 60 04160-7.65 [id number] 3 Diagnos is: ICD-10- CM 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 MICKIE Guy 02/09 [facility] Inpatient Encounter [id number] [id number] 7 RADHA LEON 02/09 [facility] Inpatient Encounter 18551-8.65 [id number] 5 Ezio SAMAYOA 02/10 [facility] Inpatient Encounter 85136-3.65 [id number] 3 LEIF MCCURDY L 02/10 [facility] Inpatient Encounter 63992-0.65 [id number] 0 LEIF MCCURDY L 02/10 [facility] Inpatient Encounter 00650-4.65 [id number] 5 LEIF MCCURDY L 02/10 [facility] SBSQ HOSP IP/OBS MODERATE 35 15012-8.65 [id number] 3 Diagnos is: ICD-10- CM 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 PAN Jacobson 02/11 [facility] Inpatient Encounter 62284-3.65 [id number] 1 LEIF MCCURDY L 02/11 [facility] Inpatient Encounter 67495-8.65 [id number] 0 LEIF MCCURDY L 02/11 [facility] Inpatient Encounter 74903-4.65 [id number] 3 LEIF MCCURDY L 02/11 [facility] SBSQ HOSP IP/OBS MODERATE 35 74490-5.65 [id number] 8 KOSTA MIRANDA 02/11 [facility] Inpatient Encounter 51278-3.65 [id number] 1 Rebecca VAZQUEZ 02/11 [facility] Inpatient Encounter 28283-6.65 [id number] 8 LEIF MCCURDY 02/11 [facility] Inpatient Encounter 42393-2.65 [id number] 4 Elzbieta TORRES JUNETELVINABreana S 02/11 [facility] Inpatient Encounter 45681-9.65 [id number] 8 Elzbieta TORRESLOLITAALINA S 02/11 [facility] Inpatient Encounter 26794-2.65 [id number] 1 Elzbieta TORRES 02/11 [facility] Inpatient Encounter 38940-4.65 [id number] 5 RYANNADAMS Holguin 02/12 [facility] Inpatient Encounter 43961-0.65 [id number] 9 ADAMS GARZON Ezio 02/12 [facility] 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 65453-8.65 [id number] 8 Diagnos is: ICD-10- CM 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 LENI Pollock 02/12 [facility] SBSQ HOSP IP/OBS MODERATE 35 35872-0.65 [id number] 9 Diagnos is: ICD-10- CM I50.41 Acute combine d systoli c and diastol ic (conges tive) hrt fail Rebecca RANGEL 02/12 [facility] Inpatient Encounter 39423-7.65 [id number] 2 ADAMS GARZON 02/12 [facility] SBSQ HOSP IP/OBS MODERATE 35 98855-3.65 [id number] 5 Cory KIMBALL ICTBARBARA 02/12 [facility] Inpatient Encounter 39836-3.65 [id number] 4 LYDIA ARGUELLO Jennifer 02/12 [facility] Inpatient Encounter 09549-7.65 [id number] 5 LYDIA ARGUELLO Jennifer 02/12 [facility] Inpatient Encounter [id number] [id number] 8 LYDIA ARGUELLO Jennifer 02/12 [facility] Inpatient Encounter 72326-2.65 [id number] 7 LYDIA ARGUELLO Jennifer 02/13 [facility] Inpatient Encounter 79993-6.65 [id number] 8 LYDIA ARGUELLO Jennifer 02/13 [facility] SBSQ HOSP IP/OBS MODERATE 35 30835-8.65 [id number] 9 Diagnos is: ICD-10- CM I50.43 Acute on chronic combine d 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 Rebecca RANGEL 02/13 [facility] SBSQ HOSP IP/OBS MODERATE 35 62185-3.65 [id number] 6 Cory KIMBALL ICTBARBARA 02/13 [facility] Inpatient Encounter [id number] [id number] 9 ADAMS GARZON K 02/13 [facility] Inpatient Encounter [id number] [id number] 6 ADAMS GARZON K 02/13 [facility] Inpatient Encounter [id number] [id number] 7 ADAMS GARZON K 02/13 [facility] Inpatient Encounter 80202-7.65 [id number] 5 SWATHI HAWKCece ISS 02/13 [facility] Inpatient Encounter [id number] [id number] 0 TERRI HAWK ISS 02/13 [facility] Inpatient Encounter 45567-6.65 [id number] 9 SWATHI HAWKCece ISS 02/13 [facility] Inpatient Encounter 53625-3.65 [id number] 5 Shazia ÁLVAREZ L 02/14 [facility] Inpatient Encounter [id number] [id number] 5 TOOTIE SHAH 02/14 [facility] Inpatient Encounter [id number] [id number] 9 SELIN PEACOCK 02/14 [facility] Inpatient Encounter [id number] [id number] 7 SELIN PEACOCK Maggy 02/14 [facility] Inpatient Encounter [id number] [id number] 2 ELI CHAPA 02/14 [facility] SBSQ HOSP IP/OBS MODERATE 35 08385-3.65 [id number] 3 Diagnos is: ICD-10- CM I50.23 Acute on chronic systoli c (conges tive) heart failure ALEGRIAKELBY Acharya Brittney 02/14 [facility] SBSQ HOSP IP/OBS MODERATE 35 51012-3.65 [id number] 2 Cory KIMBALL 02/14 [facility] Inpatient Encounter [id number] [id number] 9 ELI CHAPA 02/14 [facility] Inpatient Encounter [id number] [id number] 1 MARÍA FINCH 02/14 [facility] Inpatient Encounter 27500-9.65 [id number] 7 MARÍA FINCH 02/15 [facility] Inpatient Encounter 96262-6.65 [id number] 5 MARÍA FINCH 02/15 [facility] SBSQ HOSP IP/OBS MODERATE 35 19011-6.65 [id number] 3 Diagnos is: ICD-10- CM I50.21 Acute systoli c (conges tive) heart failure KELBY ALEGRIA 02/[address] [facility] [address] [facility] SBSQ HOSP IP/OBS MODERATE 35 87316-3.65 [id number] 6 Cory KIMBALL 02/15 [facility] TELEHEALTH FACILITY FEE 89957-8.65 [id number] 6 Diagnos is: ICD-10- CM Z55.9 Problem s related to educati on and literac y, unspeci PERICO Dill 02/15 [facility] Inpatient Encounter [id number] [id number] 3 ALESSIO [facility]ELASCO 02[facility]15 [facility] Inpatient Encounter [id number] [id number] 7 ALESSIO VELASCO 02/15 [facility] Inpatient Encounter 38535-7.65 [id number] 0 REGINA TARIQ 02/15 [facility] Inpatient Encounter [id number] [id number] 0 OSCAR AQUINO 02/15 [facility] Inpatient Encounter [id number] [id number] 0 MARÍA FINCH 02/16 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 osTRI Acosta 02/16 [facility] SBSQ HOSP IP/OBS MODERATE 35 59648-9.65 [id number] 9 Diagnos is: ICD-10- CM I50.21 Acute systoli c (conges tive) heart failure KELBY ALEGRIA Brittney 02/16 [facility] Inpatient Encounter [id number] [id number] 6 SELIN PEACOCK 02/16 [facility] HOSP IP/OBS DSCHRG MGMT >30 13401-6.65 [id number] 9 Cory KIMBALL 02/16 [facility] Outpatient Encounter [id number] [id number] 1 LEV BYERS 02/16 [facility] Outpatient Encounter 74252-5.65 [id number] 4 02/19 [facility] PT EDUCATION NOC INDIVID 37764-3.65 [id number] 2 Diagnos is: ICD-10- CM I10 Essenti al (primar y) hyperte nsion TRI LEYVA 02/20 [facility] HC PRO PHONE CALL 11-20 MIN 74496-8.65 [id number] 1 TRI LEYVA 02/23 [facility] Outpatient Encounter [id number] [id number] 5 02/27 [facility] OFFICE O/P EST HI 40 MIN 36242-5.65 [id number] 0 Diagnos is: ICD-10- CM I50.22 Chronic systoli c (conges tive) heart failure KELBY ALEGRIA 03/05 [facility] Outpatient Encounter 51282-7.65 [id number] LEXI PRADO 05/02 [facility] Outpatient Encounter [id number] [id number] 9 05/07 [facility] QNHP OL DIG ASSMT&MGMT 11-20 16913-1.65 [id number] 1 Diagnos is: ICD-10- CM I95.9 Hypoten ibeth, unspeci NOEL Steven 05/07 [facility] Outpatient Encounter 34627-2.65 [id number] 4 HEIDI MCCARTHY 05/31 [facility] OFFICE O/P EST HI 40 MIN 20054-1.65 [id number] 2 Diagnos is: ICD-10- CM I10 Essenti al (primar y) hyperte gladysion MICKIE VERGARA 06/27 [facility] Outpatient Encounter [id number] [id number] 1 06/27 [facility] OFFICE O/P EST MOD 30 MIN 02272-6.65 [id number] 5 Diagnos is: ICD-10- CM I48.19 Other persist ent atrial fibrill ation MARY REYES 06/28 [facility] OFFICE O/P EST MOD 30 MIN 86556-8.65 [id number] 2 Diagnos is: ICD-10- CM Z01.818 Encount er for other preproc edural examina Amando Caceres 06/28 [facility] Outpatient Encounter [id number] [id number] 8 06/28 [facility] QNHP OL DIG ASSMT&MGMT 10-10 75210-8.65 [id number] 8 Diagnos is: ICD-10- CM 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 LUIS ARMANDO Solares 09/18 [facility] OFFICE O/P EST HI 40 MIN 43970-0.65 [id number] 5 Diagnos is: ICD-10- CM 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 osis OU,JIAFU 09/18 [facility] Outpatient Encounter 39800-6.65 [id number] 6 KE TELLEZ R 10/27 [facility] EMERGENCY DEPT VISIT LOW MDM 13990-2.65 [id number] 6 Diagnos is: ICD-10- CM J06.9 Acute upper respira tory infecti on, unspeci fied KE TELLEZ R 10/27 [facility] Outpatient Encounter [id number] [id number] 5 KE TELLEZ R 10/27 [facility] Outpatient Encounter 49212-2.65 [id number] 5 12/26 [facility] Outpatient Encounter [id number] [id number] 8 Diagnos is: ICD-10- CM 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 MICKIE VERGARA 12/26 [facility] PH1 ASSMT&MGMT NQHP 5-10 48291-8.65 [id number] 6 Diagnos is: ICD-10- CM 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 TRI LEYVA 01/08 [facility] OFFICE O/P EST HI 40 MIN 84223-4.65 [id number] 1 Diagnos is: ICD-10- CM 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 MICKIE Guy 01/09 [facility] THER/PROPH /DIAG INJ IV PUSH 33912-6.65 [id number] 6 Diagnos is: ICD-10- CM 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 DUNIA Law 01/09 [facility] Outpatient Encounter 00584-4.65 [id number] 2 01/09 [facility] PH1 ASSMT&MGMT NQHP 5-10 80268-5.65 [id number] 0 Diagnos is: ICD-10- CM I50.20 Unspeci fied systoli c (conges tive) heart failure DEAN,LOBITO ERIK 01/10 [facility] PSYTX W PT 60 MINUTES 11365-1.63 [id number] 8 Diagnos is: ICD-10- CM I50.20 Unspeci fied systoli c (conges tive) heart failure JERMAINECOR ERIK 01/15 [facility] SPACER WITHOUT MASK 41554-3.65 [id number] 1 Diagnos is: ICD-10- CM I50.9 Heart failure , unspeci fied RODDY DELGADILLO CAJAL 01/17 [facility] INTRAORAL FULL IMAGE SERIES 17428-6.65 [id number] 6 Diagnos is: ICD-10- CM Z01.20 Encount er for dental exam and cleanin g w/o abnorma l finding s MUNSA IVELISSE BLE A 01/25 [facility] PSYCH DIAGNOSTIC EVALUATION 26098-5.65 [id number] 7 Diagnos is: ICD-10- CM Z76.82 Awaitin g organ transpl ant status MINEEUGENIA Mahmood T 01/29 [facility] Outpatient Encounter 56451-5.65 [id number] 4 MINEEUGENIA Mahmood T 01/29 [facility] Outpatient Encounter 27605-4.65 [id number] 6 02/12 [facility] Outpatient Encounter 45033-6.65 [id number] 5 Diagnos is: ICD-10- CM E27.8 Other specifi ed disorde rs of adrenal gland KELBY ALEGRIA 02/21 [facility] Outpatient Encounter 75180-4 [id number] 7 Diagnos is: ICD-10- CM 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 [id number] 2 03/12 [facility] OFFICE O/P EST HI 40 MIN 17392-3. 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 KELBY ALEGRIA H 04/03 [facility] OFF/OP CONSLTJ NEW/EST HI 55 22594-0.62 [id number] Diagnos is: ICD-10- CM Z01.810 Encount er for preproc edural cardiov ascular examina SHANTELLE Mercado 04/05 [facility] Outpatient Encounter 06207-7.65 [id number] 5 KAREN BLANCAS 04/08 [facility] Outpatient Encounter 91072-2.65 [id number] 6 04/08 [facility] Outpatient Encounter 16052-4.65 [id number] 6 KAREN BLANCAS L 04/12 [facility] Outpatient Encounter 51557-9.65 [id number] 1 04/12 [facility] 0055A-375 th [facility] louise Outside Documentat ion Only [id number] 05/17 Discharge Disposition: Home or Self Care 0055A-[address] [facility] [address] [facility] Outpatient Encounter 58699-3.65 [id number] 6 05/21 [facility] Outpatient Encounter 05803-4.65 [id number] 0 KAREN BLANCAS L 06/07 [facility] Outpatient Encounter [id number] [id number] 7 06/12 [facility] Outpatient Encounter 61658-7.65 [id number] 5 06/17 [facility] NQHP OL DIG ASSMT&MGMT 5-10 82790-4.65 [id number] 3 Diagnos is: ICD-10- CM Z02.9 Encount er for adminis trative examina tions, unspeci MATIAS Espinosa 06/17 [facility] Outpatient Encounter 85301-9.65 [id number] 6 06/18 [facility] Procedures Combined list of: 1) Procedures from Department of Veterans Affairs facilities going back up to thelast 18 months, not all VA non-surgical procedures are included; 2) All procedures from the Department of Defense facilities. Procedure Procedure Type Code Date Perfomer Comments Sourc e No data available for this section Ambulato ry Pharmacy Non-Physician Phone Call To Patient/Provider Brief (5-10min) Non-Physician Phone Call To Patient/Provider Brief (5-10min) 35439 02/25/20 18 LUIS NAM [facility] Non-Physician Phone Call To Patient/Provider Brief (5-10min) Non-Physician Phone Call To Patient/Provider Brief (5-10min) 18362 09/09/20 16 AYAKA AMIN [facility] Non-Physician Phone Call To Patient/Provider Brief (5-10min) Non-Physician Phone Call To Patient/Provider Brief (5-10min) 16658 09/07/20 16 AYAKA AMIN [facility] Non-Physician Phone Call To Patient/Provider Brief (5-10min) Non-Physician Phone Call To Patient/Provider Brief (5-10min) 94761 06/09/20 15 TOMMY ANGELO [facility] Immunization Administration One Vaccine Immunization Administration One Vaccine 85723 05/03/20 13 SAGAR BENÍTEZ [facility] Tdap Vaccine Tdap Vaccine 98289 05/03/20 13 SAGAR BENÍTEZ [facility] Non-Physician Phone Call To Patient/Provider Brief (5-10min) Non-Physician Phone Call To Patient/Provider Brief (5-10min) 78813 07/28/20 12 BARBI KOVACS [facility] Vaccines Viral Yellow Fever Vaccines Viral Yellow Fever 52639 04/07/20 05 ELIJAH STARR DoD Immunization Administration One Vaccine Immunization Administration One Vaccine 32933 04/07/20 05 ELIJAH STARR DoD Waiver services; not otherwise specified (NOS) KRYSTLE APONTE [facility] Non-Physician Phone Call To Patient/Provider Brief (5-10min) Non-Physician Phone Call To Patient/Provider Brief (5-10min) 30172 AYAKA ACEVEDO [facility] Non-Physician Phone Call To Pt/Provider Intermed (11-20 min) Non-Physician Phone Call To Pt/Provider Intermed (11-20 min) 54671 CHETAN HYDE [facility] Social History Combined list of available smoking, tobacco, and other social history from Department [facility] and [facility] facilities. Social History Type Response Date Comment Sourc e Tobacco smoking status NHIS VA-TOBACCO NEVER USED CIGARETTES 01/17/2025 [facility] History of tobacco use VA-TOBACCO NEVER USED OTHER TYPE 01/17/2025 [facility] History of tobacco use ORYX ADMIT TOBACC O SCREEN NO 02/10/2024 [facility] History of tobacco use VA-TOBACCO NEVER USED 06/08/2022 [facility] Sexual Orientation Ambula tory Pharmacy Gender identity Ambulator y Pharmacy Sex Representation Male (finding) Un known Organization This section is an empty social history section. [facility] Assessment and Plan Combined list of future care activities from Department [facility] and [facility] facilities (e.g., assessment and plan notes, appointments, orders, and referrals). Additional future care activities may be listed in the Plan of Care section. Result Assessment and Plan Date Source Assessment and Plan No data available for this section 06/24/2025 Ambulatory Pharmacy Plan of Care List of future care activities from Department [facility] facilities. Additional future care activities may be listed in the Assessment and Plan section. Date/Time Care Activity Care Activity Detail Facili ty 07/24/2025 AMBULATORY - MEDICINE AMBULATORY - MEDICI NE [facility] Advance Directives List of completed, amended, or rescinded Advance Directives on record at Department [facility] facilities. An actual copy of the Directive is not included. Date Advance Directive Provider Source 02/16/2024 AD[address] GINA [address] [facility] Functional Status Combined list of recent functional and cognitive assessments recorded at Department of Defense and Veterans Affairs (VA).VA Functional [place] Measurement (FIM) Scale: 1 = Total Assistance (Subject = 0% +), 2 = Maximal Assistance (Subject = 25% +), 3 = Moderate Assistance (Subject = 50% +), 4 = Minimal Assistance (Subject = 75% +), 5 = Supervision, 6 = Modified [place] (Device), 7 = Complete [place] (Timely, Safely). Assessment Date/Time Source Assessment Type Assessment Skill Assessment Score Assessment Details No data available for this section
--- OUTSIDE RECORDS SUMMARY | 2025-06-24 11:49 | XMS_ITS ---
Author Name [facility] [facility] [place] [facility] [place] Address [address] [place] [address] Care Team Providers Care Cleaner Wall Name Role Phone OSWALDOADAMA Primary Care Provider Unavailabl e Insurance Providers: [...] Kennedy's Name Patient's Relationship to Policy Kennedy [facility] [address] [facility] Nov 21, 2024 [facility] [id number] Elzbieta ANN PATIENT Selected Encounter This section includes the information on record at [place] for the Encounter. Date/Time Encounter Type Encounter Description Reason Provider Source Jun 28, 2024 09:15 AM OFFICE O/P EST MOD 30 MIN CARDIAC ECHO ICD-10-CM I48.19 Other persistent atrial fibrillation MARY REYES Encounter Template Text not used by [facility] Assessments - Encounter Diagnoses This section includes the primary and secondary diagnoses documented for the Encounter. Date/Time Primary/Secondary Diagnosis Diagnosis Name Provider Source Jul 02, 2024 03:08 PM PRIMARY Other persistent atrial fibrillation MARY REYES [facility] Plan of Treatment: Future Appointments (+ 6 months) and Future Tests (+/- 45 days) The Plan of Treatment section includes future care activities for the patient from all [place] [facility] This section includes future appointments and future orders which are active, pending or scheduled. Future Appointments This section includes appointments that were scheduled to occur 6 months from the date of the Encounter, up to a maximum of 20 appointments. The data comes from all [facility] facilities. Appointment Date/Time Appointment Type Appointme nt Facility Name Sep 18, 2024 07:00 AM AMBULATORY - NONE [facility] Sep 18, 2024 07:15 AM AMBULATORY - MEDICINE [facility] Sep 18, 2024 12:00 PM AMBULATORY - MEDICINE [facility] Oct 27, 2024 12:11 PM AMBULATORY - MEDICINE [facility] Social History: Smoking Status (Most current) and [...] place. Date/Time Current Smoking Status Comment Khurram mikalanathalia Feb 10, 2024 06:16 PM ORYX ADMIT TOBACCO SCREEN NO [facility] Advance Directives: All historical and current [...] Feb 16, 2024 ADVANCE DIRECTIVE GINA BRIGHT [facility] Encounter Notes: All associated encounter notes This section contains the clinical notes associated to the Encounter. Date/Time Encounter Note(s) Provider Source Jun 29, 2024 09:40 AM CARDIOLOGY DIAGNOSTIC STUDY CONSULT: LOCAL TITLE: EKG CONSULT STL STANDARD TITLE: CARDIOLOGY DIAGNOSTIC STUDY CONSULT DATE OF NOTE: JUN 29, 2024@09:40:34 ENTRY DATE: JUN 29, 2024@09:40:34 AUTHOR: CLINICAL,DEVICE PRO EXP COSIGNER: URGENCY: STATUS: COMPLETED DOCUMENT IN [facility]ISTA [facility]ING SEE FULL REPORT IN [facility]ISTA [facility]AGING SIGNATURE NOT REQUIRED SEE SIGNATURE IN VISTA IMAGING ([place] EKG) AUTO-INSTRUMENT DIAGNOSIS Procedure: [id number] 12 Lead ECG Release Status: Released Off-Line Verified Date Verified: Jun 29, 2024@09:40:29 26202.2 Ventricular Rate: 74 BPM 60041.5 QRS Duration: 98 ms 31536.6 Q-T Interval: 346 ms 99653 QTC Calculation(Bazett)384 ms 23483.13 Calculated R [place]: 163 degrees 50026.14 Calculated T [place]: 267 degrees Atrial fibrillation with premature ventricular or aberrantly conducted complexes Low voltage QRS, consider pulmonary disease, pericardial effusion, or normal variant Incomplete right bundle branch block Septal infarct (cited on or before 21-SEP-2023) Lateral infarct (cited on or before 21-SEP-2023) Abnormal ECG When compared with ECG of 27-JUN-2024 08:57, Questionable change in initial forces of Anterior-lateral leads Administrative Closure: 06/29/2024 by: CLINICAL,DEVICE PROXY SERVICE CLINICAL,DEVICE PROXY SERVICE [facility] Jun 28, 2024 02:01 PM CARDIOLOGY DIAGNOSTIC STUDY REPORT: LOCAL TITLE: CP ECHO DIANNE STL STANDARD TITLE: CARDIOLOGY DIAGNOSTIC STUDY REPORT DATE OF NOTE: JUN 28, 2024@14:01:35 ENTRY DATE: JUN 28, 2024@14:01:35 AUTHOR: CLINICAL,DEVICE PRO EXP COSIGNER: URGENCY: STATUS: COMPLETED CP ECHO DIANNE STL Has ADDENDA DOCUMENT IN VISTA IMAGING SEE FULL REPORT IN VISTA IMAGING SIGNATURE NOT REQUIRED SEE SIGNATURE IN VISTA IMAGING ([employer] DIANNE (P)) AUTO-INSTRUMENT DIAGNOSIS Procedure: DIANNE CP DIANNE ECHOCARDIOGRAM [facility] Release Status: Released Off-Line Verified Date Verified: Jun 28, 2024@14:01:14 Administrative Closure: 06/28/2024 by: CLINICAL,DEVICE PROXY SERVICE 06/29/2024 ADDENDUM STATUS: COMPLETED DIANNE reviewed. Discussed also with Dr. Chong. -Small linear thrombus -For now, will continue on Eliquis and likely repeat DIANNE in 1-2 months. /luan/ ABRIL VERGARA MD PHD STAFF PHYSICIAN AND CHIEF OF HEART FAILURE Signed: 06/29/2024 17:22 CLINICAL,DEVICE PROXY SERVICE [facility] Jun 28, 2024 12:20 PM CARDIOLOGY NURSING PREPROCEDURE NOTE: LOCAL TITLE: FACTORY FOCUS TECHNICIAN PROCEDURE STL STANDARD TITLE: CARDIOLOGY NURSING PREPROCEDURE NOTE DATE OF NOTE: JUN 28, 2024@12:20 ENTRY DATE: JUN 28, 2024@12:20:56 AUTHOR: XAVIER TERRY EXP COSIGNER: URGENCY: STATUS: COMPLETED DIANNE RN Report 06/28/2024 11:26:39 Patient Name: Gosia Ann Initial MD: Mariana Study Date: 06/28/2024 Entire Case Report Patient Information Patient Name: Gosia Ann Date of : Age: Study Information Scheduled Start Study Start 06/28/2024 06/28/2024 10:[address] [facility] - ECHO Lab Physician and Clinical Staff Initial MD: Dr. Reyes Monitored Sedation Nurse: Xavier Terry 06/28/2024 11:26:39 Financial #: 2 of 4 Patient Name: Gosia Ann Initial MD: Mariana Study Date: 06/28/2024 Vitals Summary Time HR NIBP SpO2 Resp Temp EtCO2 Apnea Evelia Pain Level Fuentes Comment 10:35:32 79 97/73 100.0 13 26 0 2 10:40:00 64 105/82 98.0 19 33 0 3 10:45:01 80 94/61 100.0 11 39 0 3 10:50:11 82 86/60 100.0 10 39 0 3 10:55:04 68 97/75 100.0 17 36 0 3 11:00:16 75 93/70 100.0 21 36 0 3 11:05:56 72 94/71 97.0 14 31 0 3 11:10:02 68 93/80 100.0 15 33 0 3 11:15:19 72 108/82 100.0 14 36 0 2 Time Study Chronological Log 10:12:58 DIANNE 10:13:00 Cardioversion possible 10:13:07 Patient arrives to prep room from home with non emergency services ambulance driver 10:13:13 NPO Since: 0000 10:13:16 Allergy list reviewed with patient. 10:13:17 Pre-cardioversion EKG completed 10:13:19 IV site: 20 g pal to LAC 10:13:25 IV Fluids: 500 cc ns kvo 10:14:50 Attending MD present 10:14:51 Informed consent obtained on IMED in CPRS by physician. 10:14:55 Time out including patient, procedure & site verification took place with staff, physician and patient prior to start of case. 10:14:58 Lidocaine 4% 10 ml prep completed as ordered by MD. Read back and confirmed. 10:15:20 Oxygen applied via nasal cannula at: 2 l pnc 10:29:02 Anesthesia team present with case. 10:35:32 HR=79 bpm, NIBP=97/73 mmhg, QqR7=352 %, Resp=13 B/min, EtCO2=26 mmHg, Pain=0, Fuentes=2 10:38:16 probe insertion 10:40:00 HR=64 bpm, HEDK=443/82 mmhg, SpO2=98 %, Resp=19 B/min, EtCO2=33 mmHg, Pain=0, Fuentes=3 10:45:01 HR=80 bpm, NIBP=94/61 mmhg, YjM2=249 %, Resp=11 B/min, EtCO2=39 mmHg, Pain=0, Fuentes=3 10:50:11 HR=82 bpm, NIBP=86/60 mmhg, UlU1=753 %, Resp=10 B/min, EtCO2=39 mmHg, Pain=0, Fuentes=3 10:54:58 probe removal 10:55:04 HR=68 bpm, NIBP=97/75 mmhg, DxH3=462 %, Resp=17 B/min, EtCO2=36 mmHg, Pain=0, Fuentes=3 11:00:16 HR=75 bpm, NIBP=93/70 mmhg, EoT3=693 %, Resp=21 B/min, EtCO2=36 mmHg, Pain=0, Fuentes=3 11:05:56 HR=72 bpm, NIBP=94/71 mmhg, SpO2=97 %, Resp=14 B/min, EtCO2=31 mmHg, Pain=0, Fuentes=3 11:10:02 HR=68 bpm, NIBP=93/80 mmhg, IgK1=480 %, Resp=15 B/min, EtCO2=33 mmHg, Pain=0, Fuentes=3 11:15:19 HR=72 bpm, JKJN=751/82 mmhg, GxG3=693 %, Resp=14 B/min, EtCO2=36 mmHg, Pain=0, Fuentes=2 11:16:00 Procedure results discussed with Patient and Family by Kalin 11:16:03 IV Removal: No issues 11:26:12 Pt discharged to: home with non emergency services ambulance driver Post Anesthesia Sedation Score - Phase 1 [...] with peripheral nerve block or patient baseline VA-PAS Phase 1 time documented Time: 1126 Post Anesthesia Sedation Score - Phase 2 [...] Clean or Not Applicable (for example, Endoscopy) VA-PAS Phase 2 time documented Time: 1125 Echo Lab DISCHARGE INSTRUCTIONS You have just [...] ECHO LAB STAFF ON MON-FRI 7:30am-4pm AT [phone] [place] , [place]T. [phone] [place] [phone]. After 4pm and on weekends a Cardiology physician can be reached by calling [phone] or . Ask the crimping machine operator to speak with the clinical fellow, on-call. /luan/ XAVIER TERRY MSN RN CCRN REGISTERED NURSE Signed: 06/28/2024 12:51 Receipt Acknowledged By: 06/28/2024 13:08 /luan/ XAVIER [facility] Jun 28, 2024 11:01 AM CARDIOLOGY PROCEDURE NOTE: LOCAL TITLE: CARDIOLOGY PROCEDURE REPORT STL STANDARD TITLE: CARDIOLOGY PROCEDURE NOTE DATE OF NOTE: JUN 28, 2024@11:01 ENTRY DATE: JUN 28, 2024@11:02:08 AUTHOR: MARY REYES EXP COSIGNER: URGENCY: STATUS: COMPLETED BRIEF PROCEDURE SUMMARY Date of procedure(s):JUN 28, 2024 Name: GOSIA ANN Date of : Apr Pre-procedure diagnosis: Persistent atrial fibrillation, nonischemic cardiomyopathy, AL amyloidosis. Post-procedure diagnosis:Persistent atrial fibrillation, nonischemic cardiomyopathy, AL amyloidosis, spontaneous contrast in the LA appendage with linear thrombus. PROCEDURE(S) PERFORMED: Transesophageal echocardiography PHYSICIAN(S) PERFORMING THE PROCEDURE(S): Attending Dr. Mary Reyes ANCILLARY STAFF: Nurses: Xavier Terry Material Expediter: Tom Muñoz Anesthesia administered: By anesthesia team. Specimen removed: None FINDINGS: DIANNE showed LA appendage thrombus and spontaneous contrast with low flow velocities, no thrombus seen in the other cardiac chambers, moderate TR, mild MR. Cardioversion was not performed. Complications: None Estimated blood loss: NONE Post procedure condition: Stable Major findings were discussed with patient and/or family. Discharge/Transfer to: Home. The Attending Physician was present throughout the procedure. This is a preliminary note. Final report will follow in CPRS/[facility]ISTAIMAGE. /luan/ MARY REYES Signed: 06/28/2024 11:24 MARY REYES [facility] Jun 28, 2024 09:27 AM CARDIOLOGY PREPROCEDURE NOTE: LOCAL TITLE: CARDIOLOGY PRE-PROCEDURAL NOTE STL STANDARD TITLE: CARDIOLOGY PREPROCEDURE NOTE DATE OF NOTE: JUN 28, 2024@09:27 ENTRY DATE: JUN 28, 2024@09:27:40 AUTHOR: MARY REYES EXP COSIGNER: URGENCY: STATUS: COMPLETED PRE-SEDATION ASSESSMENT Date of study: JUN 28, 2024 Name: NADIAGOSIA KENTRELL Date of : Apr Height: 72 in [182.9 cm] (07/01/2023 14:35) Weight: 168.6 lb [76.48 kg] (06/27/2024 08:21) Body Surface Area (BSA) = 1.971 History and indication: NICMP, AL cardiac amyloidosis, persistent atrial fibrillation, scheduled for DIANNE guided cardioversion. History of present illness: This is 59 year old MALE with nonischemic cardiomyopathy, AL cardiac amyloidosis, followed by Dr. Vergara in heart failure clinic, seen by him yesterday, scheduled for DIANNE guided cardioversion, has been on Eliquis, also has low blood pressure issues and takes midodrine 3 times a day and droxidopa. His chart is reviewed. History is taken from the patient. He reports exertional shortness of breath, leg edema, focal chest pains. Lately his blood pressures have been better for the last few days. Last PO intake more than 6 hours [...] ONCE A DAY ACTIVE 11 Total Medications All meds were reviewed with patient. Allergy: Patient has answered NKA Family history: No premature coronary disease or sudden Social history: TOBACCO USE - No ALCOHOL USE - No COCCAINE - No Other receation drugs - No Review of systems: All systems reveiwed are negative except for HPI. Physical Exam: Thin built, frail, his spouse was at bedside vital: reviewed as documented in the chart. General: Patient is in no acute distress. HEENT: No xanthelasma or oral mucosa cyanosis Neck: supple, no jugular vein distention or thyroid enlargement. Negative hepatojugular reflex Respiratory: Patient breaths comfortable. Occasional basal crepitations. Cardiovascular: Irregular heart sounds, no significant murmur, 2+ lower extremity edema. Abdomen: soft, no tenderness or masses. No hepatospleenomegaly. Extremities: No clubbing or cyanosis. Skin: No rash, subcutaneous xanthomas. Neurological/Psychiatric: Alert and orient to time, place and person. Normal affect and mood. Diagnostic data: HGB A1C (last):No HEMOGLOBIN A1C EO data found LDL(DIRECT):____ HDL: 37 mg/dL L (05/03/23 11:07) CHOLESTEROL 166 mg/dL 05/03/2023 11:07 CALCULATED LDL 116 mg/dL 05/03/2023 11:07 Triglycerides:66 mg/dL (05/03/23 11:07) WBC:6.4 10*3/uL (02/16/24 20:00) RBC:4.89 10*6/uL (02/16/24 20:00) HGB 14.2 g/dL 02/16/2024 20:00 HCT:43.5 % (02/16/24 20:00) PLT 252 10*3/uL 02/16/2024 20:00 Chem 7 GLUCOSE 137 H mg/dL 02/16/2024 20:00 BUN: 33.8 mg/dL H (02/16/24 20:00) CREATININE 1.26 mg/dL 02/16/2024 20:00 SODIUM 133 L mEq/L 02/16/2024 20:00 POTASSIUM 4.3 mEq/L 02/16/2024 20:00 CHLORIDE 90 mEq/L L (02/16/24 20:00) CARBON DIOXIDE 33 H mEq/L 02/16/2024 20:00 EKG today is pending but clinically he is in A-fib. Echo ejection fraction 30-35% with abnormal strain pattern suggestive of infiltrative cardiomyopathy ASA score: 3 mallampati score: 1 Has the patient had a analgesia/sedation in the past? Yes Has the patient had an adverse reaction to analgesia/sedation? No Asseessment: 1. Cardiac amyloid, AL / Lambda subtype, ejection fraction 30 to 35% - Followd by Aris Chong and Justin Schaffer - Started on Stephanie-CyBorD (11/12) - Seen by [facility] nephrology for kidney involvement (proteinuria) - Seen by [facility] for likely GI involvement (Sammi). 2. NICM- C with clean cors 3. Atrial fibrillation- On Eliquis A/C 4. HTN 5. Low back pain 6. Gout 7. Lung nodules / pleural thickening of unknown origin. Plan: Proceed with DIANNE guided cardioversion with moderate/deep sedation with anesthesia in view of moderately severe LV dysfunction, chronic hypotension on alpha 1 antagonists. /luan/ MARY REYES Signed: 06/28/2024 10:00 MARY REYESCOX [facility]
--- OUTSIDE RECORDS SUMMARY | 2025-06-24 11:49 | XMS_ITS | Encounter Summary ---
Author Name [facility] [place] [facility] [place] Address [address] [place] [address] Care Team Providers Care Stave Planer Tender Name Role Phone OSWALDO ADAMA Primary Care [...] Name Patient's Relationship to Policy Kennedy [facility] 2024 [facility] Nov 21, 2024 [facility] [id number] [phone] Elzbieta ZUNIGA PATIENT Selected Encounter This section includes the information on record at [place] for the Encounter. Date/Time Encounter Type Encounter Description Reason Provider Source April 12, 2025 09:26 AM Outpatient Encounter COMMUNITY CARE CONSULT EVELYNE BLANCAS Encounter Template Text not used by [place] Plan of Treatment: Future Appointments (+ 6 [...] 20 appointments. The data comes from all [facility]. Appointment Date/Time Appointment Type Appointme nt Facility Name May 02, 2025 08:15 AM AMBULATORY - NONE [facility] Jun 13, 2025 08:00 AM AMBULATORY - NONE [facility] Jun 17, 2025 12:00 PM AMBULATORY - NONE [facility] Jul 24, 2025 09:00 AM AMBULATORY - MEDICINE [facility] Aug 14, 2025 02:40 PM AMBULATORY - NONE [facility] Active, Pending, and Scheduled Orders This section includes a listing of several types of active, pending, and scheduled orders, including clinic medications orders, diagnostic test orders, procedure orders and consult orders; where the start date of the order is 45 days before the date of the Encounter or 45 days after the date of theEncounter. The data comes from all [facility]. Test Date/Time Test Type Test Details Facility Name Feb 28, 2025 12:00 AM Laboratory - Chemi stry Order BASIC METABOLIC PANEL GREEN LI/HEP BLD/PLAS PLASMA SP [facility] Social History: Smoking Status (Most current) and Tobacco Use (All prior to encounter date) This section includes the most current, and the historical, smoking and tobacco- related health factors from the [place] facility where the Encounter took place. Current Smoking Status This section includes the most current smoking, or tobacco-related health factor, from the [place] facility where the Encounter took place. Date/Time Current Smoking Status Comment Facil ity Jan 17, 2025 09:00 AM CO-TOBACCO NEVER U SED CIGARETTES [facility] Tobacco Use History This section includes a history of the smoking, or tobacco-related health factors, that were collected on or before the date of the Encounter. The data comes from the [place] facility where the Encounter took place. Date/Time Smoking Status/Tobacco Use Comment F acility Jan 17, 2025 09:00 AM CO-TOBACCO NEVER U SED OTHER TYPE [facility] Feb 10, 2024 06:16 PM ORYX ADMIT TOBACCO SCREEN NO [facility] Advance Directives: All historical and current Section Date Range: From patient's date of to the date document was created. This section includes ALL of a patient's completed or amended [place] Advance and Rescinded Directives. The entries below indicate that a directive exists for the patient, but an actual copy is not included with this document. The data comes from all [place] facilities. Date Advance Directives Provider Source Feb 16, 2024 ADVANCE DIRECTIVE GINA BRIGHT [facility] Encounter Notes: All associated encounter notes This section contains the clinical notes associated to the Encounter. Date/Time Encounter Note(s) Provider Source April 12, 2025 09:26 AM NONVA NOTE: LOCAL TITLE: COMMUNITY CARE-CARE COORDINATION PLAN NOTE 657 STL STANDARD TITLE: NONVA NOTE DATE OF NOTE: APRIL 12, 2025@09:26 ENTRY DATE: APRIL 12, 2025@09:26:30 AUTHOR: EVELYNE BLANCAS EXP COSIGNER: URGENCY: STATUS: COMPLETED COMMUNITY CARE-CARE COORDINATION PLAN NOTE 657 STL Has ADDENDA Community Care Consult: Transplant and waitlist mgmt Consult No: [id number] [facility] Referral #: pending DOA approval Chief Complaint: End stage HF - TRACER ID [id number] Patient Admitted? Unknown Level of Care Coordination Complex/Chronic Care Coordination was determined from: Chart Review Facility Community Care Office Contact Care Coordination Point of Contact: Evelyne Blancas Services: Moderate Care Coordination Services Case Management, if appropriate Direct communications with interdisciplinary team Plan: Confirm 's preference. Educate on CCN/[employer] authorization. Send approval to [facility]. Fax authorization to CC provider. Follow up with CC provider and/or for scheduling update. Follow up with after appointment monthly. Retrieve records for visit. Scan notes to [facility]. Assess if any other care needed. /luan/ EVELYNE BLANCAS MSN RN REGISTERED NURSE Signed: 04/12/2025 09:28 04/12/2025 ADDENDUM STATUS: COMPLETED PROVIDER CONTACT [facility] Ron Karimi (Sindy) and Dr. Lawrence contacted on March to discuss surgery/waitlist mgmt coverage. Consult submitted by Dr. Lawrence, pending DOA approval for heart transplant Action Needed? Yes requested DOA approval. f/u to forward auth to CC Facility /kimberly ISBELL RN REGISTERED NURSE Signed: 04/12/2025 09:29 04/16/2025 ADDENDUM STATUS: COMPLETED Care Coordination Follow Up Level of Care Coordination Complex/Chronic Care Coordination was determined from: Chart Review Services: Moderate Care Coordination Services Case Management, if appropriate Direct communications with interdisciplinary team Plan: [facility] HEART TRANSPLANT [address] [place], [id number] Provider Name (if known): [facility] Community Provider Provider Provider Attn: Ron Jenkins P: [phone] Referral Number: [id number] Appointment Management: [place] admitted to [facility] 04/08/25 0930 Appointment 1 Other: Heart Transplant Appointment Location: Community Provider Appointment Date: March Reason for Appointment: wait listed /kimberly ISBELL RN REGISTERED NURSE Signed: 04/16/2025 09:30 04/16/2025 ADDENDUM STATUS: COMPLETED Care Coordination Follow Up Level of Care Coordination Complex/Chronic Care Coordination was determined from: Chart Review Services: Moderate Care Coordination Services Case Management, if appropriate Direct communications with interdisciplinary team Plan: According to EPIC: 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 /kimberly ISBELL RN REGISTERED NURSE Signed: 04/16/2025 09:37 05/21/2025 ADDENDUM STATUS: COMPLETED PROVIDER CONTACT Ron Castellon at [facility] contacted on May to discuss heart transplanted 05/21/25. Copy of notes sent to [facility]. Action Needed? Yes Follow up with CC Provider for CC Post Transplant RFS for consult for dc plans. Follow up with monthly. /kimberly ISBELL RN REGISTERED NURSE Signed: 05/21/2025 14:25 KERN,EVELYNE L [facility]
--- OUTSIDE RECORDS SUMMARY | 2025-06-24 11:49 | XMS_ITS | Encounter Summary ---
Author Name [facility] [place] [facility] [facility] [place] Address [address] [place] [address] Care Team Providers Care Digital Camera Technician Name Role Phone ELLIOTADAMA Feranndez Primary Care Provider Unavailnilsa e Insurance Providers: [...] Kennedy's Name Patient's Relationship to Policy Kennedy [facility] 2024 [facility] Nov 21, 2024 [facility] [id number] Elzbieta ZUNIGA PATIENT Selected Encounter This section includes the information on record at [place] for the Encounter. Date/Time Encounter Type Encounter Description Reason Pro vider Source Mar 12, 2025 03:52 PM Outpatient Encounter CARDIOLOGY IHE Encounter Template Text not used by [place] Plan of Treatment: Future Appointments (+ 6 [...] 20 appointments. The data comes from all [facility]. Appointment Date/Time Appointment Type Appointme nt Facility Name March 27, 2025 08:30 AM AMBULATORY - MEDICINE [facility] Aug 14, 2025 02:40 PM AMBULATORY - NONE [facility] Active, Pending, and Scheduled Orders This section includes a listing of several types of active, pending, and scheduled orders, including clinic medications orders, diagnostic test orders, procedure orders and consult orders; where the start date of the order is 45 days before the date of the Encounter or 45 days after the date of theEncounter. The data comes from all [facility]. Test Date/Time Test Type Test Details Facility Name Feb 28, 2025 12:00 AM Laboratory - Chemi stry Order BASIC METABOLIC PANEL GREEN LI/HEP BLD/PLAS PLASMA SP [facility] Mar 20, 2025 02:05 PM Consult Order HEMATOLOGY /ONCOLOGY ECONSULT OUTPT STL Cons Spice Mixer's Choice [facility] Lab Results: +/- 30 days of [...] Type Comment Feb 26, 2025 06:45 AM [facility] GLUCOSE,BLOOD-poct (L) BLOOD Specimen Type: BLOOD Comment: Test Performed by: [id number] Meter #: [id number] Ordering Provider: ADAMA CHACON Report Released Date/Time: Feb 26, 2025 06:50 AM Reporting Lab: [address] [address] Performing Lab: [address] [address] GLUCOSE,BLOOD-poct ([facility]) 110 mg/dL H 72-99 Feb 12, 2025 08:43 AM [facility] URINE DRUG SCREEN (STL) URINE Specimen Type: URINE Comment: The cut-off value for Fentanyl was laboratory developed and its performance characteristics confirmed by the [facility] laboratory thru method comparison with reference laboratory and medication chart review. The laboratory is regulated under CLIA as qualified to perform high-complexity testing. Fentanyl is used for clinical purposes in conjunction with other laboratory tests. Ordering Provider: HENNY MARLEY Report Released Date/Time: Feb 01, 2025 12:11 PM Reporting Lab: [facility] [address] [facility] [address] Performing Lab: [address] [address] ETHANOL <10 mg/dL 0-9 AMPHET/METHAMPHETAMINE Negative ng/mL COCAINE METABOLITES Negative ng/mL BENZODIAZEPINES (STL) Negative ng/mL CANNABINOIDS Negative ng/mL METHADONE Negative ng/mL OPIATES Negative ng/mL CREATININE URINE/OTHERS 88.9 mg/dL 63-16 6 OXYCODONE ([facility]) Negative ng/mL BUPRENORPHINE (STL-PB-MA) Negative ng/mL FENTANYL (STL) Negative ng/mL Feb 12, 2025 08:43 AM [facility] URINALYSIS (STL-PB) URINE Specimen Type: URIN E No comment entered. Ordering Provider: HENNY MARLEY Report Released Date/Time: Feb 01, 2025 12:11 PM Reporting Lab: [facility] [address] [facility] [address] Performing Lab: [address] [address] URINE COLOR Light-Yellow Yellow U.BILIRUBIN Negative mg/dL [...] 1.046 H Feb 12, 2025 08:24 AM [facility] QUANTIFERON-TB,4 TUBE BLOOD Specimen Type: BL [...] T-lymphocytes. For additional information, please refer to http://education.Yaphie/faq/WMN570 (This link is being provided for information/ educational purposes only.) Test Performed by [employer], [facility] [facility], [address] [place] [address] Jah Wade M.D., Ph.D., Director of Laboratories , [facility] [id number] Ordering Provider: HENNY MARLEY Report Released Date/Time: Feb 01, 2025 12:11 PM Reporting Lab: [facility] [address] [place] [address] Performing Lab: [facility] [address] [place] [address] .NIL - QUANTIFERON 0.03 [IU]/mL .MITOGEN-NIL 7.90 [IU]/mL .QUANTIFERON NEGATIVE NEGATIVE .TB1-NIL 0.00 [IU]/mL .TB2-NIL <0.00 [IU]/mL Feb 12, 2025 08:24 AM [facility] NICOTINE AND METABOLITES SERUM Specimen Type: SERUM Comment: Reference Ranges(ng/mL): Non-Smoker Active Tobacco User < or = to 4 2-10 Reference Ranges(ng/mL): Non-Smoker Active Tobacco User < or = to 8 16-145 This test was developed and its analytical performance characteristics have been determined by [employer] [place], [place]. It has not been cleared or approved by the U.S. Food and Drug Administration. This assay has been validated pursuant to the CLIA regulations and is used for clinical purposes. Test Performed by [facility], [employer] [facility], [address] [place], [place] Jah Wade M.D., Ph.D., Director of Laboratories , CLIA [id number] Ordering Provider: HENNY MARLEY Report Released Date/Time: Feb 01, 2025 12:11 PM Reporting Lab: [address] [address] Performing Lab: [facility] [address] [facility] NICOTINE <2 ng/mL COTININE <2 ng/mL Feb 12, 2025 08:24 AM [facility] CMV(IGG & IGM)(ST) SERUM Specimen Type: SERU M No comment entered. Ordering Provider: HENNY MARLEY Report Released Date/Time: Feb 01, 2025 12:11 PM Reporting Lab: [address] [address] Performing Lab: [address] [address] CMV-IGG-EIA POSITIVE NEGATIVE CMV-IGM-EIA NEGATIVE NEGATIVE Feb 12, 2025 08:24 AM [facility] HEPATITIS B SURFACE AB PNL SERUM Specimen Typ e: SERUM Comment: The listed sex of this patient may not be a typical indication for this test. Therefore, reference ranges or interpretive criteria listed may not be valid. Clinical correlation suggested. Ordering Provider: HENNY MARLEY Report Released Date/Time: Feb 01, 2025 12:11 PM Reporting Lab: [address] [address] Performing Lab: [address] [address] HEP B Surface Ab-HBsAB (STL) Nonreactive m[IU]/m L Nonreactive Feb 12, 2025 08:24 AM [facility] HEP HB S Ag (AUSRIA) (STL) SERUM Specimen Typ e: SERUM Comment: The listed sex of this patient may not be a typical indication for this test. Therefore, reference ranges or interpretive criteria listed may not be valid. Clinical correlation suggested. Ordering Provider: HENNY MARLEY Report Released Date/Time: Feb 01, 2025 12:11 PM Reporting Lab: [facility] [address] [facility] [address] Performing Lab: [address] [address] HEP HB S Ag ([place]RI[place]) (STL) Nonreactive N onreactive Feb 12, 2025 08:24 AM [facility] HEP C Ab HCV Ab (STL) SERUM Specimen Type: SE RUM Comment: The listed sex of this patient may not be a typical indication for this test. Therefore, reference ranges or interpretive criteria listed may not be valid. Clinical correlation suggested. Ordering Provider: HENNY MARLEY Report Released Date/Time: Feb 01, 2025 12:11 PM Reporting Lab: [address] [address] Performing Lab: [address] [address] HEP C Ab HCV Ab (STL) Nonreactive Nonrea ctive Feb 12, 2025 08:24 AM [facility] HIV COMBO FOURTH GENERATION (STL) SERUM Speci men Type: SERUM No comment entered. Ordering Provider: HENNY MARLEY Report Released Date/Time: Feb 01, 2025 12:11 PM Reporting Lab: [address] [address] Performing Lab: [address] [address] HIV COMBO FOURTH GENERATION (STL) Nonreactive Nonreactive Feb 12, 2025 08:24 AM [facility] ETHANOL PLASMA Specimen Type: PLASM A Comment: No hemolysis noted. Ordering Provider: HENNY MARLEY Report Released Date/Time: Feb 01, 2025 12:11 PM Reporting Lab: [facility] [address] [facility] [address] Performing Lab: [facility] [address] [facility] [address] ETHANOL <10 mg/dL 0-9 Feb 12, 2025 08:24 AM [facility] PT/INR NEW (STL-MA) PLASMA Specimen Type: PLAS MA No comment entered. Ordering Provider: HENNY MARLEY Report Released Date/Time: Feb 01, 2025 12:11 PM Reporting Lab: [facility] [address] [place] [address] Performing Lab: [address] [address] PROTIME 14.8 s H 9.4-12.5 INR VALUE 1.3 {INR} Feb 12, 2025 08:24 AM [facility] RAPID PLASMA REAGIN (RPR) SERUM Specimen Type : SERUM No comment entered. Ordering Provider: HENNY MARLEY Report Released Date/Time: Feb 01, 2025 12:11 PM Reporting Lab: [facility] [address] [facility] [address] Performing Lab: [place] [address] [facility] [address] RAPID PLASMA REAGIN (RPR) Non-Reactive N ONREACTIVE Feb 12, 2025 08:24 AM [facility] PROST. SPECIFIC AG.(PB-STL) SERUM Specimen Ty pe: SERUM Comment: The listed sex of this patient may not be a typical indication for this test. Therefore, reference ranges or interpretive criteria listed may not be valid. Clinical correlation suggested. Ordering Provider: HENNY MARLEY Report Released Date/Time: Feb 01, 2025 12:11 PM Reporting Lab: [facility] [address] [facility] [address] Performing Lab: [facility] [address] [facility] [address] PROST. SPECIFIC AG.(PB-STL) 0.347 ng/mL 0-4 Feb 12, 2025 08:24 AM [facility] TSH W/ REFLEX FT4 (STL) PLASMA Specimen Type: PLASMA No comment entered. Ordering Provider: HENNY MARLEY Report Released Date/Time: Feb 01, 2025 12:11 PM Reporting Lab: [place] [address] [facility] [address] Performing Lab: [facility] [address] [facility] [address] TSH 1.316 u[IU]/mL 0.47-5 Feb 12, 2025 08:24 AM [facility] COMPREHENSIVE METABOLIC PANEL PLASMA Specimen Type: PLASMA Comment: No hemolysis noted. Ordering Provider: HENNY MARLEY Report Released Date/Time: Feb 01, 2025 12:11 PM Reporting Lab: [place] [address] [facility] [address] Performing Lab: [place] [address] [address] [facility] [address] CREATININE 1.36 mg/dL H 0.7-1.3 UREA NITROGEN [...] 59.6 >60 Feb 12, 2025 08:24 AM [facility] CBC BLOOD Specimen Type: BLOOD No comment entered. Ordering Provider: HENNY MARLEY Report Released Date/Time: Feb 01, 2025 12:11 PM Reporting Lab: [facility] [address] [facility] [address] Performing Lab: [facility] [address] [place] [address] WBC 7.2 10*3/uL 3.6-11.2 RBC 5.22 10*6/uL [...] 0.00-0. 20 Feb 12, 2025 08:08 AM [facility] I-STAT, CREAT ([facility]) BLOOD Specimen Type: B LOOD Comment: Test Performed by: [id number] Meter #: [id number] Ordering Provider: ADAMA CHACON Report Released Date/Time: Feb 12, 2025 08:10 AM Reporting Lab: [facility] [address] [facility] [address] Performing Lab: [address] [address] I-STAT, CREAT ([facility]) 1.6 mg/dL H 0.7-1.3 Social History: Smoking Status (Most current) and Tobacco Use (All prior to encounter date) This section includes the most current, and the historical, smoking and tobacco- related health factors from the [place] facility where the Encounter took place. Current Smoking Status This section includes the most current smoking, or tobacco-related health factor, from the [place] facility where the Encounter took place. Date/Time Current Smoking Status Comment Khurram ity Jan 17, 2025 09:00 AM [place]-TOBACCO NEVER U SED CIGARETTES [facility] Tobacco Use History This section includes a history of the smoking, or tobacco-related health factors, that were collected on or before the date of the Encounter. The data comes from the [place] facility where the Encounter took place. Date/Time Smoking Status/Tobacco Use Comment F acility Jan 17, 2025 09:00 AM [place]-TOBACCO NEVER U SED OTHER TYPE [facility] Feb 10, 2024 06:16 PM ORYX ADMIT TOBACCO SCREEN NO [facility] Advance Directives: All historical and current Section Date Range: From patient's date of to the date document was created. This section includes ALL of a patient's completed or amended [place] Advance and Rescinded Directives. The entries below indicate that a directive exists for the patient, but an actual copy is not included with this document. The data comes from all [facility]. Date Advance Directives Provider Source Feb 16, 2024 ADVANCE DIRECTIVE [place] [facility] Radiology Reports: +/- 30 days of the [...] the Encounter. The data comes from all [place] treatment facilities. Date/Time Radiology Report Provider Source Mar 12, 2025 02:[address] ABDOMEN W/CONT & 3D: NADIAGOSIA KENTRELL [id number] -1965 M Exm Date: MAR 12, 2025@14:23 Req Phys: HENNY MARLEY Loc: [facility]-CARDIO E-CONSULT (Req'g Loc Img Loc: [facility]-CT IMAGING [facility] Service: [facility], [facility] [address] [place] [address] (Case [id number] COMPLETE) CT ABDOMEN W/O CONT (CT Detailed) CPT:24060 Reason for Study: c/f metastasis, CT adrenal gland protocol Clinical History: Responsible Attending: Henny Marley PA-C Attending Contact Number: [phone] Resident Contact Number: CT adrenal gland protocol [...] 12, 2025 Date Verified: MAR 12, 2025 Booth Cleaner E-Sig:/ES/Zoe Craven MD Report: CASE #: [id number] DATE:03/12/2025 3:02 PM CLINICAL HISTORY:c/f metastasis, CT [...] Primary Interpreting Staff: Zoe Craven MD, Radiologist (Booth Cleaner) /ZOE RODRIGUEZ [facility] Feb 26, 2025 06:40 AM PET/CT TUMOR IMAGING (SKULL TO MID-THIGH)-P: GOSIA ZUNIGA [id number] -1965 M Exm Date: FEB 26, 2025@06:40 Req Phys: HENNY MARLEY Loc: [facility]-CARDIO E-CONSULT (Req'g Loc Img Loc: [facility]-PET-CT Service: [address] [address] (Case [id number] COMPLETE) PET/CT TUMOR SKULL BASE TO MID-T(NM Detailed) CPT:40902 CPT Modifiers : PI PET TUMOR INIT TX STRAT Reason for Study: ct shows new adrenal nodules c/f metastatic disease (Case 1116 COMPLETE) F-18 FLUORODEOXYGLUCOSE (FDG),PER(NM Detailed) CPT:A9552 Clinical History: Report Status: Verified Date Reported: FEB 26, 2025 Date Verified: FEB 26, 2025 Booth Cleaner E-Sig:/ES/Adele Hood MD,PhD Report: NAME: Gosia Zuniga CASE #: [id number] PROCEDURE: FDG PET/CT study HISTORY: 59-year-old male [...] The brain is partially included in the zjmle-cz-menc. The visualized portion of the brain demonstrates [...] CODE: 1001 Dictated by Brian Garcia MD (residential director) IADELE, have reviewed the images and report and concur with these findings. Primary Diagnostic Code: SIGNIFICANT ABNORMALITY, ATTN NEEDED Primary Interpreting Staff: Adele Hood MD,PhD, Nuclear Medicine Physician (Booth Cleaner) Primary Interpreting Resident: BRIAN GARCIA, RESIDENT PHYSICIAN /ADELE HOROWITZ [facility] Feb 12, 2025 08:[address] THORAX, DIAGNOSTIC, W/CONTRAST: GOSIA ZUNIGA [id number] -1965 M Exm Date: FEB 12, 2025@08:01 Req Phys: HENNY MARLEY Loc: [facility]-CARDIOLOGY [place] (Req'g Lo Img Loc: [facility]-CT IMAGING [facility] Service: [address] [address] (Case [id number] COMPLETE) CT THORAX, DIAGNOSTIC, W/CONTRAS(CT Detailed) CPT:20316 Contrast Media : Non-ionic Iodinated Reason for Study: HF advanced therapies work-up Clinical History: Responsible Attending: Henny Marley PA-C Attending Contact Number: [phone] Resident Contact Number: HF advanced therapies work-up [...] 12, 2025 Date Verified: FEB 12, 2025 Booth Cleaner E-Sig:/ES/CHUY BANKS Report: EXAM: CT chest and [...] Primary Interpreting Staff: CHUY BANKS, Staff Physician (Booth Cleaner) /CHUY RENDON [facility] Feb 12, 2025 08:[address] ABD PEL W/CONT & 3D: GOSIA ZUNIGA [id number] -1965 M Exm Date: FEB 12, 2025@08:00 Req Phys: HENNY MARLEY Loc: [facility]-CARDIOLOGY [place] (Req'g Lo Img Loc: [facility]-CT IMAGING [facility] Service: [address] [address] (Case [id number] COMPLETE) CT ABDOMEN AND PELVIS W/CONTRAST (CT Detailed) CPT:92968 Contrast Media : Non-ionic Iodinated Reason for Study: HF advanced therapies work-up Clinical History: Responsible Attending: Henny Marley PA-C Attending Contact Number: [phone] Resident Contact Number: HF advanced therapies work-up [...] 12, 2025 Date Verified: FEB 12, 2025 Booth Cleaner E-Sig:/ANDREW/CHUY BANKS Report: EXAM: CT chest and abdomen [...] Primary Interpreting Staff: CHUY BANKS, Staff Physician (Booth Cleaner) /CHUY RENDON [facility] Feb 12, 2025 07:19 AM US ABDOMEN LIMITED W/BLOOD FLOW DOPPLER: GOSIA ZUNIGA [id number] -1965 M Exm Date: FEB 12, 2025@07:19 Req Phys: HENNY MARLEY Loc: [facility]-CARDIOLOGY [place] (Req'g Lo Img Loc: [facility]-ULTRASOUND [facility] Service: Unknown [address] [address] (Case [id number] COMPLETE) US ABDOMEN LTD, SINGLE ORG OR BECKY(US Detailed) CPT:88253 Reason for Study: HF advanced therapies work-up (Case 914 COMPLETE) US BLOOD FLOW ABD/RENAL (LTD) (US Detailed) CPT:73148 Clinical History: Organ to Image: RUQ Reason for exam: HF advanced therapies work-up Report Status: Verified Date Reported: FEB 12, 2025 Date Verified: FEB 12, 2025 Booth Cleaner E-Sig:/ES/ASHLEE BOLES Report: Case [id number], [id number]. US ABDOMEN LTD, SINGLE ORG OR QUADRANT, [...] Impression: Unremarkable right upper quadrant ultrasound examination. I, Ashlee Boles, have reviewed the images and report and concur with these findings. Primary Interpreting Staff: ASHLEE BOLES, RADIOLOGIST (Booth Cleaner) Primary Interpreting Resident: VIJI JOHNSON, Resident Physician /ASHLEE GODWIN [facility]
--- OUTSIDE RECORDS SUMMARY | 2025-06-24 11:49 | XMS_ITS | Encounter Summary ---
Author Name [facility] [place] [facility] [place] [facility] [place] Address [address] [place] [address] Care Team Providers Care Trades Helper Name Role Phone OSWALDO ADAMA Primary Care [...] Patient's Relationship to Policy Kennedy [facility] 2024 [facility] Nov 21, 2024 [facility] [id number] [phone] Elzbieta ZUNIGA PATIENT Selected Encounter This section includes the information on record at [place] for the Encounter. Date/Time Encounter Type Encounter Description Reason Provider Source April 08, 2025 09:23 AM Outpatient Encounter COMMUNITY CARE CONSULT EVELYNE BLANCAS Encounter Template Text not used by [place] Plan of Treatment: Future Appointments (+ 6 [...] 20 appointments. The data comes from all [facility]. Appointment Date/Time Appointment Type Appointme nt Facility Name Jul 24, 2025 09:00 AM AMBULATORY - MEDICINE [facility] Aug 14, 2025 02:40 PM AMBULATORY - NONE [facility] Active, Pending, and Scheduled Orders This section includes a listing of several types of active, pending, and scheduled orders, including clinic medications orders, diagnostic test orders, procedure orders and consult orders; where the start date of the order is 45 days before the date of the Encounter or 45 days after the date of theEncounter. The data comes from all [facility]. Test Date/Time Test Type Test Details Facility Name Feb 28, 2025 12:00 AM Laboratory - Chemi stry Order BASIC METABOLIC PANEL GREEN LI/HEP BLD/PLAS PLASMA SP [facility] March 29, 2025 03:45 PM Consult Order COMMUNITY CARE-TRANSPLANT EVALUATION [facility] Cons Retail Attendant's Choice [facility] Social History: Smoking Status (Most current) and [...] Facil ity Jan 17, 2025 09:00 AM [place]-TOBACCO NEVER U SED CIGARETTES [facility] Tobacco Use History This section includes a history of the smoking, or tobacco-related health factors, that were collected on or before the date of the Encounter. The data comes from the [place] facility where the Encounter took place. Date/Time Smoking Status/Tobacco Use Comment F acility Jan 17, 2025 09:00 AM [place]-TOBACCO NEVER U SED OTHER TYPE [facility] Feb 10, 2024 06:16 PM ORYX ADMIT TOBACCO SCREEN NO [facility] Advance Directives: All historical and current Section [...] Feb 16, 2024 ADVANCE DIRECTIVE GINA BRIGHT [facility] Radiology Reports: +/- 30 days of [...] the Encounter. The data comes from all [place] treatment facilities. Date/Time Radiology Report Provider Source Mar 12, 2025 02:[address] ABDOMEN W/CONT & 3D: GOSIA ZUNIGA [id number] -[id number] M Exm Date: MAR 12, 2025@14:23 Req Phys: HENNY ALEGRIA Loc: [facility]-CARDIO E-CONSULT (Req'g Loc Img Loc: [facility]-CT IMAGING Service: [address] [address] (Case 2069 COMPLETE) CT ABDOMEN W/O CONT (CT Detailed) CPT:06076 Reason for Study: c/f metastasis, CT adrenal gland protocol Clinical History: Responsible Attending: Henny Alegria PA-C Attending Contact Number: [id number] Resident Contact Number: CT adrenal gland protocol [...] 12, 2025 Date Verified: MAR 12, 2025 Technical Services Representative E-Sig:/ES/Zoe Craven MD Report: CASE #: [id number] DATE:03/12/2025 3:02 PM CLINICAL HISTORY:c/f metastasis, CT [...] Primary Interpreting Staff: Zoe Craven MD, Radiologist (Technical Services Representative) /ZOE RODRIGUEZ [facility] Encounter Notes: All associated encounter notes This section contains the clinical notes associated to the Encounter. Date/Time Encounter Note(s) Provider Source April 08, 2025 09:23 AM NONVA NOTE: LOCAL TITLE: COMMUNITY CARE-CARE COORDINATION PLAN NOTE [address] STANDARD TITLE: NONVA NOTE DATE OF NOTE: APRIL 08, 2025@09:23 ENTRY DATE: APRIL 08, 2025@09:23:13 AUTHOR: EVELYNE BLANCAS EXP COSIGNER: URGENCY: STATUS: COMPLETED COMMUNITY CARE-CARE COORDINATION PLAN NOTE [address] Has ADDENDA Community Care Consult: Transplant Eval Consult No: [id number] [facility] Referral #: [id number] Chief Complaint: End Stage HF - Comp Eval for heart transplant Patient Admitted? No Level of Care Coordination Complex/Chronic Care Coordination was determined from: Chart Review, Phone call to [facility]/Family/Caregiver Facility Community Care Office Contact Care Coordination Point of Contact: Evelyne Blancas Services: Moderate Care Coordination Services Case Management, if appropriate Direct communications with interdisciplinary team Plan: Confirm [facility]'s preference. Educate on CCN/[employer] authorization. Send approval to [facility]. Fax authorization to CC provider. Follow up with CC provider and/or for scheduling update. Follow up with after appointment monthly. Retrieve records for visit. Scan notes to [facility]. Assess if any other care needed. /luan/ EVELYNE ISBELL RN REGISTERED NURSE Signed: 04/08/2025 09:25 04/08/2025 ADDENDUM STATUS: COMPLETED Care Coordination Follow Up Level of Care Coordination Complex/Chronic Care Coordination was determined from: Chart Review, Phone call to [facility]/Family/Caregiver Services: Moderate Care Coordination Services Case Management, if appropriate Direct communications with interdisciplinary team Plan: [facility] [address] [facility], [place], [id number] Provider Name (if known): [facility] CommunityProvider Provider Provider Attn: Ron Masterson Coord CONTACT [facility] contacted on March to discuss approved auth. Buhr Dresser NUHA. Proceeded w/sending referral packet to avoid delay. Action Needed? Yes f/u with scheduling /luan/ EVELYNE ISBELL RN REGISTERED NURSE Signed: 04/08/2025 09:26 EVELYNE BLANCAS [facility]
--- OUTSIDE RECORDS SUMMARY | 2025-06-24 11:49 | XMS_ITS | Encounter Summary ---
Author Name [facility] [place] Organization [facility] [place] Address [address] [place] [address] Care Team Providers Care Garment Supervisor Name Role Phone OSWALDO ADAMA Primary Care [...] Kennedy's Name Patient's Relationship to Policy Kennedy [facility] 2024 [facility] Nov 21, 2024 [facility] [id number] Elzbieta ZUNIGA PATIENT Selected Encounter This section includes the information on record at [place] for the Encounter. Date/Time Encounter Type Encounter Description Reason Pro vider Source IHE Encounter Template Text not used by [place] Advance Directives: All historical and current Section Date Range: From patient's date of to the date document was created. This section includes ALL of a patient's completed or amended [place] Advance and Rescinded Directives. The entries below indicate that a directive exists for the patient, but an actual copy is not included with this document. The data comes from all [place] facilities. Date Advance Directives Provider Source Feb 16, 2024 ADVANCE DIRECTIVE GINA BRIGHT [facility]
--- OUTSIDE RECORDS SUMMARY | 2025-06-24 11:49 | XMS_ITS | Encounter Summary ---
Author Organization [facility] Address [address] [place] [address] Phone Care Team Providers Care Cement And Concrete Plant Worker Name Role Phone Anuel Vargas Primary Care Provider [phone] Justin Flowers MD Unavailable Erlin Chong MD Unavailable Alexandra Powell RN Unavailable [phone] Encounter Details Date Type Department Care Team (Late st Contact Info) Description 06/07/2025 Documentation [facility] Endocrinology Metabolism and Lipid [address] [facility] Medicine 13th [place] [address] [place] [address] Carolyn Ponce MD [address] [place], [place] [id number] Social History Tobacco Use Types Packs/Day Years Used Date Smoking Tobacco: Never Passive Smoke Exposure: Never Smokeless Tobacco: Never [facility] Utilities Answer Date Recorded In the past 12 months has [employer], gas, oil, or water company threatened to [...] often do you attend chur ch or adventist services? Never 04/10/2025 Do you belong to any clubs o r organizations such as mu-ism groups, unions, fraternal or athletic groups, or [...] in the past 12 m [facility], were you homeless or living in a retirement (including now)? No 04/10/2025 Personal Safety Answer Date Recorded Have you ever been in or are you currently in a harmful physical or emotional relationship or is someone making you feel afraid or unsafe? 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 MERCHANDISE PRESENTATION MANAGER Gender Identity Male 05/28/2021 8:44 PM CDT Sexual Orientation Straight 10/19/2022 9: 47 AM MERCHANDISE PRESENTATION MANAGER documented as of this encounter Plan of Treatment Upcoming Encounters Date Type Department Care Team (Late st Contact Info) Description 07/01/2025 Hospital Encounter [facility] [address] [facility] [address] [place] [address] Dmitry Dean MD [address] [address] Scheduled Procedures Name Priority Associated Diagnoses Date/Ti me ENDOMYOCARDIAL BIOPSY 78032 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 Immunosuppression documented as [...] documented as of this encounter Care Teams Cement And Concrete Plant Worker Relationship Specialty Start Date End Date Anuel Vargas DO PCP - General Internal Medicine 10/19/22 Justin Flowers, MD [address] DIV IM BONE MARROW TRANSPLANT[address] [place] [address] Consulting Physician Medical Oncology 10/06/23 Erlin Chong MD [address] DIV IM BONE MARROW TRANSPLANT[address] [place] [address] Referring Physician Cardiology 10/06/23 Alexandra Powell, RN [address] [facility] [address] [place] [address] Parimutuel Ticket Checker Transplant 05/21/25 documented as of this encounter
--- OUTSIDE RECORDS SUMMARY | 2025-06-24 11:49 | XMS_ITS ---
Author Name [facility] [place] [facility] [place] Address [address] [place] [address] Care Team Providers Care Lay Out Maker Name Role Phone OSWALDOADAMA Primary Care Provider [...] Kennedy's Name Patient's Relationship to Policy Kennedy [facility] 2024 [facility] Nov 21, 2024 [facility] [id number] [phone] Elzbieta ZUNIGA PATIENT Selected Encounter This section includes the information on record at [place] for the Encounter. Date/Time Encounter Type Encounter Description Reason Provider Source Oct 27, 2024 12:11 PM EMERGENCY DEPT VISIT [facility] EMERGENCY DEPT ICD-10-CM J06.9 Acute upper respiratory infection, unspecified TIANNA TELLEZ Encounter Template Text not used by [place] Assessments - Encounter Diagnoses This section includes the primary and secondary diagnoses documented for the Encounter. Date/Time Primary/Secondary Diagnosis Diagnosis Name Provider Source Oct 27, 2024 02:28 PM PRIMARY Acute upper respiratory infection, unspecified TIANNA TELLEZ [facility] Plan of Treatment: Future Appointments (+ 6 months) and Future Tests (+/- 45 days) The Plan of Treatment section includes future care activities for the patient from all [place] [facility]. This section includes future appointments and future orders which are active, pending or scheduled. Future Appointments This section includes appointments that were scheduled to occur 6 months from the date of the Encounter, up to a maximum of 20 appointments. The data comes from all [facility]. Appointment Date/Time Appointment Type Appointme nt Facility Name Jan 09, 2025 08:00 AM [facility] Jan 09, 2025 08:30 AM [facility] Jan 17, 2025 09:00 AM [facility] Jan 22, 2025 07:45 AM AMBULATORY - SURGERY . [facility] Jan 25, 2025 07:30 AM AMBULATORY - NONE [facility] Jan 29, 2025 10:00 AM [facility] Feb 12, 2025 08:00 AM [facility] Feb 12, 2025 08:30 AM AMBULATORY - NONE [facility] Feb 26, 2025 07:15 AM AMBULATORY - NONE [facility] Mar 12, 2025 03:00 PM AMBULATORY - NONE [facility] March 27, 2025 08:30 AM [facility] Active, Pending, and Scheduled Orders This section includes a listing of several types of active, pending, and scheduled orders, including clinic medications orders, diagnostic test orders, procedure orders and consult orders; where the start date of the order is 45 days before the date of the Encounter or 45 days after the date of theEncounter. The data comes from all [facility]. Test Date/Time Test Type Test Details Facility Name Sep 18, 2024 12:00 AM Laboratory - Blood Bank Order TYPE & SCREEN - LAB BLOOD [facility] Sep 26, 2024 12:00 AM Laboratory - Chemi stry Order BASIC METABOLIC PANEL GREEN LI/HEP BLD/PLAS PLASMA [facility] Lab Results: +/- 30 days of [...] Unit Interpretation Reference Range Specimen Type Comment Oct 27, 2024 12:18 PM [facility] RESPIR[facility] PCR PANEL NASOPHARYNX Specimen Type: NASOPHARYNX Comment: PCR_H_RHINO_ENT EROV Alert sent :10/27/24 at: 13:57 by: Ijeoma Bazan CRITICAL/VERBAL READ BACK PERFORMED CALLED TO ALFRED LUQUE. *Human Rhino/Enterovir us(BF) flagged incorrectly as H* by [[id number]]. Changed to H on Oct 27, 2024@14:01 by [[id number]]. Ordering Provider: TONO RAMOS Report Released Date/Time: Oct 27, 2024 12:17 PM Reporting Lab: [place] [address] [facility] [place] [id number] Performing Lab: [address] [address] *Human Rhino/Enterovirus(BF) DETECTED H No t Detected *Chlamydophilia pneumoniae (BF) Not Detected Not Detected *Adenovirus (BF) Not Detected Not Detect ed *Coronavirus HKU1 (BF) Not Detected Not Detected *Coronavirus NL63 (BF) Not Detected Not Detected *Coronavirus 229E (BF) Not Detected Not Detected *Coronavirus OC43 (BF) Not Detected Not Detected *Human Metapneumovirus (BF) Not Detected Not Detected *Influenza A (BF) Not Detected Not Detec romario *Influenza A/H1 (BF) Not Detected Not De tected *Influenza A/H3 (BF) Not Detected Not De tected *Influenza A/H1-2009 (BF) Not Detected N ot Detected *Influenza B (BF) Not Detected Not Detec romario *Parainfluenza Virus 1 (BF) Not Detected Not Detected *Parainfluenza Virus 2 (BF) Not Detected Not Detected *Parainfluenza Virus 3 (BF) Not Detected Not Detected *Parainfluenza Virus 4 (BF) Not Detected Not Detected *Resp Syncytial Virus (BF) Not Detected Not Detected *Bordetella pertussis (BF) Not Detected Not Detected *Mycoplasma pneumoniae (BF) Not Detected Not Detected *Bordatella parapertussis (BF) Not Detected Not Detected *Influenza A(no subtype) (BF) Not Detected Not Detected COVID-19 (BIOFIRE) Not Detected Not Dete cted Vital Signs: All taken on the encounter date This section contains inpatient and outpatient Vital Signs collected on the date of the Encounter. Date/Time Temperature Pulse Blood Pressure Respiratory Rate SP02 Pain Height Weight Body Mass Index Source Oct 27, 2024 12:16 PM 98 98 118/82 18 3 [facility] Social History: Smoking Status [...] 06:16 PM ORYX ADMIT TOBACCO SCREEN NO [facility] Advance Directives: All historical and [...] Feb 16, 2024 ADVANCE DIRECTIVE GINA BRIGHT [facility] Encounter Notes: All associated encounter notes This section contains the clinical notes associated to the Encounter. Date/Time Encounter Note(s) Provider Source Oct 29, 2024 08:41 AM CLINICAL WARNING: LOCAL TITLE: INFECTION CONTROL ALERT STANDARD TITLE: CLINICAL WARNING DATE OF NOTE: OCT 29, 2024@08:41 ENTRY DATE: OCT 29, 2024@08:41:32 AUTHOR: RAEGAN MATUTE EXP COSIGNER: URGENCY: STATUS: COMPLETED RESPIRATORY PANEL POSITIVE (RESP ILLNESS) requires (Standard/Droplet) Precautions for the duration of the illness. Wearing a mask (a component of standard precautions) is advisable if patient has active upper respiratory symptoms. Consult infection prevention to discuss discontinuation of Standard + Contact precautions in immunocompromised patients. Rhinovirus S, Droplet DI=duration of illness RESPIRATORY PCR PANEL SWAB-NASOPHARYNX [facility] #[id number] Collection time: Oct 27, 2024@12:18 Test Name Result Units Range --------- ------ ----- ----- PARAINF1 Not Detected Ref: Not Detected *Influenza A/H3 (BF) Not Detected Ref: Not Detected *Influenza A/H1-2009 (BF) Not Detected Ref: Not Detected *Coronavirus HKU1 (BF) Not Detected Ref: Not Detected *Coronavirus NL63 (BF) Not Detected Ref: Not Detected *Coronavirus 229E (BF) Not Detected Ref: Not Detected PARAINF2 Not Detected Ref: Not Detected *Coronavirus OC43 (BF) Not Detected Ref: Not Detected *Influenza A/H1 (BF) Not Detected Ref: Not Detected PARAINF3 Not Detected Ref: Not Detected PARAINF4 Not Detected Ref: Not Detected BPERT BF Not Detected Ref: Not Detected BPARAPERT Not Detected Ref: Not Detected Chlam pneumo (BF) Not Detected Ref: Not Detected Mycoplasma pneumo Not Detected Ref: Not Detected *Adenovirus (BF) Not Detected Ref: Not Detected H. Metapneumovirus Not Detected Ref: Not Detected H. Rhino/Enterovirus DETECTED H Ref: Not Detected *Influenza A (BF) Not Detected Ref: Not Detected *Influenza B (BF) Not Detected Ref: Not Detected Resp Sync Virus (BF) Not Detected Ref: Not Detected INFLUA(NOSUB) Not Detected Ref: Not Detected COVID-19 (BIOFIRE) Not Detected Ref: Not Detected Comments: PCR_H_RHINO_ENTEROV Alert sent :10/27/24 at: 13:57 by: Ijeoma Bazan CRITICAL/VERBAL READ BACK PERFORMED CALLED TO ALFRED LUQUE. /luan/ RAEGAN MATUTE RN REGISTERED NURSE Signed: 10/29/2024 08:42 RAEGAN MATUTE [facility] Oct 27, 2024 01:18 PM PHYSICIAN EMERGENCY DEPT NOTE: LOCAL TITLE: EMERGENCY DEPARTMENT STL STANDARD TITLE: PHYSICIAN EMERGENCY DEPT NOTE DATE OF NOTE: OCT 27, 2024@13:18 ENTRY DATE: OCT 27, 2024@13:18:08 AUTHOR: TIANNA TELLEZIGNER: URGENCY: STATUS: COMPLETED TRIAGE CHIEF COMPLAINT: HPI: Patient is a 59-year-old male with history of AL amyloidosis, pulmonary fibrosis, HTN, HFrEF, who presents for nasal congestion cough and sore throat. Symptoms started 2 weeks ago. He reports clear to yellow rhinorrhea as well as some minimal intermittent epistaxis with nasal clearing. He also reports a mild intermittent sore throat. Mild intermittent headache over the last 2 weeks. No fevers. No chest pain. No shortness of breath. No other symptoms reported. REVIEW OF SYSTEMS: See HPI for further details. All 10 systems reviewed and otherwise negative unless otherwise detailed herein. PAST MEDICAL HISTORY: 1) Hypertension 2) Gout 3) Back pain 4) Goiter 5) Pulmonary fibrosis 6) AL amyloidosis 7) Exposure to potentially hazardous substance 8) HFrEF - heart failure with reduced ejection fraction CURRENT MEDICATIONS: Active Outpatient Medications (including Supplies): Active Outpatient Medications Status 1) DROXIDOPA 300MG ORAL CAP TAKE ONE CAPSULE BY MOUTH ACTIVE THREE TIMES A DAY FOR HYPOTENSION 2) NUTRITION SUPL ENSURE PLUS/STRWBERRY [...] ONCE A ACTIVE DAY 9) Non-VA TORSEMIDE TAB 20MG BY MOUTH ONCE A DAY AND 10 ACTIVE BY MOUTH NIGHTLY 11 Total Medications No medications found.. I have reviewed the patient's medication list with the patient and/or his/her care-top closer. Any medication discrepancies have been resolved. Patient will be provided with an updated list of his/her medication(s). SURGICAL HISTORY: not pertinent FAMILY HISTORY: not pertinent SOCIAL HISTORY: Social History Main Topics: Smoking status: No data available for: Current Tobacco User Alcohol Use: not indorsed ____ Illicit Drug Use: not indorsed Sexual Activity: Other Topics of Concern: Child bearing age: N/A LMP: N/A possible: N/A ALLERGIES: Review of patient's allergies indicates: Patient has answered NKA PHYSICAL EXAM: VITAL SIGNS: 118/82 (10/27/2024 12:16)98 (10/27/2024 12:16)98% (09/18/2024 09:25)98 F [36.7 C] (10/27/2024 12:16)18 (10/27/2024 12:16)The OBJECT WEIGHT LAST 3 was NOT found...Contact IRM. MAThe OBJECT was NOT found...Contact IRM.PAIN ASSESSMENTThe OBJECT was NOT found...Contact IRM. Measurement DT PAIN 10/27/2024 12:16 3 CONSTITUTIONAL: No acute distress, Non-toxic appearance HENT: airway patent, nasal congestion with mild rhinorrhea, no evidence of epistaxis, mild posterior oropharynx erythema without exudate or swelling EYES: Conj pink, sclera clear NECK: Normal range of motion, No tenderness, Supple, No stridor CARDIOVASCULAR: Normal heart rate PULMONARY/CHEST: CTA bilaterally ABDOMEN: BACK: : RECTAL: EXTREMITIES: Normal range of motion, No edema NEUROLOGIC: Alert & oriented/reactive, Normal motor function, No ataxia, No focal deficits appreciated on cursory screening exam SKIN: Warm, Dry, No erythema, No rash LABS: Report Released Date/Time: Oct 27, 2024@14:01 Provider: TONO RAMOS Specimen: NASOPHARYNX. STI 24 [id number] Specimen Collection Date: Oct 27, 2024@12:18 Test name Result units Ref. range Site Code INFLUA(NOSUB) Not Detected Ref: Not Detected [657] COVID-19 (BIOFIRE) Not Detected Ref: Not Detected [657] *Parainfluenza Virus 1 (BF)Not Detected Ref: Not Detected [657] *Influenza A/H3 (BF) Not Detected Ref: Not Detected [657] *Influenza A/H1-2009 (BF) Not Detected Ref: Not Detected [657] *Coronavirus HKU1 (BF) Not Detected Ref: Not Detected [657] *Coronavirus NL63 (BF) Not Detected Ref: Not Detected [657] *Coronavirus 229E (BF) Not Detected Ref: Not Detected [657] *Coronavirus OC43 (BF) Not Detected Ref: Not Detected [657] *Influenza A/H1 (BF) Not Detected Ref: Not Detected [657] *Parainfluenza Virus 3 (BF)Not Detected Ref: Not Detected [657] *Parainfluenza Virus 4 (BF)Not Detected Ref: Not Detected [657] *Bordetella pertussis (BF) Not Detected Ref: Not Detected [657] BPARAPERT Not Detected Ref: Not Detected [657] Chlam pneumo (BF) Not Detected Ref: Not Detected [657] *Mycoplasma pneumoniae (BF)Not Detected Ref: Not Detected [657] *Adenovirus (BF) Not Detected Ref: Not Detected [657] *Human Metapneumovirus (BF)Not Detected Ref: Not Detected [657] *Human Rhino/Enterovirus(BF)DETECTE D H Ref: Not Detected [657] *Influenza A (BF) Not Detected Ref: Not Detected [657] *Influenza B (BF) Not Detected Ref: Not Detected [657] *Resp Syncytial Virus (BF) Not Detected Ref: Not Detected [657] *Parainfluenza Virus 2 (BF)Not Detected Ref: Not Detected [657] Comment: PCR_H_RHINO_ENTEROV Alert sent :10/27/24 at: 13:57 by: Ijeoma Bazan CRITICAL/VERBAL READ BACK PERFORMED CALLED TO ALFRED LUQUE. *Human Rhino/Enterovirus(BF) flagged incorrectly as H* by [[id number]]. Changed to H on Oct 27, 2024@14:01 by [[id number]]. Performing Lab Sites [309] [facility], [facility] [address] [facility] [CLIA# [id number]] [address] [facility] [address] [place] [address] RADIOLOGY: ECG IMPRESSION: ED COURSE & MEDICAL DECISION MAKIN-year-old male presents for URI symptoms. Afebrile. Remaining vitals normal. Lungs CTA bilaterally. Clinically well- appearing. Patient tested positive for rhinovirus, enterovirus. Will treat him symptomatically. To return for any new concerning or worsening symptoms. Nursing notes, medications, vital signs, allergies and pertinent labs & imaging studies reviewed (see chart for details) with lab results reviewed with patient and family/caregivers at bedside and radiology results reviewed with patient and any family/caregivers at bedside. Stable, alert, nontoxic, nonfocal with clinically apparent viral upper respiratory infection. Clinical information obtained from an independent historian. History obtained from or confirmed by: ___spouse ___parent ___guardian ___family ___friend ___EMS ___other: Discussed with radiology regarding test interpretation: I performed an independent interpretation of: ___EKG ___rhythm strip ___plain x-ray ___ultrasound ___CT scan ___MRI ___other Patient's care impacted by: ___Diabetes ___Hypertension ___Cancer ___other: Patient's care is significantly limited by social determinants of health including, but not limited to: ___inadequate housing ___low income ___alcoholism and drug addiction in family ___problems related to primary support group ___unemployment ___problems with employment ___language barrier ___lack of transportation ___psychiatric disease ___other social determinants of health: External records reviewed: ___Inpatient records ___office records _X__outpatient records ___prior outpatient labs ___prior outpatient radiology ___primary care record ___outside ED record ___PMD referral ___outside ER ___urgent care referral ___other: Management of the patient was discussed with: ___Hospitalist ___consultant ___behavioral health provider ___primary care provider ___other: The following testing was considered but ultimately was not performed after discussion with the patient/family: I considered prescription management with the following but ultimately did not prescribe: ___pain medication ___antiviral ___antibiotic ___other: I considered admission/ observation but decided upon discharge due to: FOOD TECHNOLOGIST SERVICE/TIME: MEDICATIONS GIVEN IN ED: [ ] YES [ X ] NO DISPOSITION CONDITION:[ ] Improved [ X ] Unchanged [ ] Deteriorated CLINICAL IMPRESSION: 1 -viral URI 2 - 3 - DISCHARGE INSTRUCTIONS AND PATIENT-DIRECTED FOLLOW-UP RECOMMENDATIONS: DIET: regular ACTIVITY: ad karen NEW MEDS: Afrin, Tessalon MEDICATION RECONCILIATION: CONTINUE ALL PRESCRIBED MEDICATIONS DIRECTED EXCEPT: FOLLOW-UP WITH PRIMARY SOAP PRESS FEEDER/SPECIALIST: routine in 1-2 weeks if not improving, sooner if worse RETURN TO EMERGENCY: if any worries or concerns ADDITIONAL SIGNATURE PCP: [ ] YES [X ] NO [ ] not listed Active Outpatient Medications (including Supplies): Active Outpatient Medications Status 1) DROXIDOPA 300MG ORAL CAP TAKE ONE CAPSULE BY MOUTH ACTIVE THREE TIMES A DAY FOR HYPOTENSION 2) NUTRITION SUPL ENSURE PLUS/STRWBERRY [...] ONCE A ACTIVE DAY 9) Non-VA TORSEMIDE TAB 20MG BY MOUTH ONCE A DAY AND 10 ACTIVE BY MOUTH NIGHTLY 11 Total Medications /es/ Tianna Tellez DO Staff Physician Signed: 10/27/2024 14:15 TIANNA TELLEZ [facility] Oct 27, 2024 12:14 PM EMERGENCY DEPT TRIAGE NOTE: LOCAL TITLE: EMERGENCY DEPARTMENT TRIAGE NOTE STANDARD TITLE: EMERGENCY DEPT TRIAGE NOTE DATE OF NOTE: OCT 27, 2024@12:14 ENTRY DATE: OCT 27, 2024@12:14:17 AUTHOR: ELLY ALCANTAR EXP COSIGNER: URGENCY: STATUS: COMPLETED Emergency Department/Urgent Care Center Triage Patient age:59 Sex in chart: MALE Mode of Arrival: Private vehicle Mode of Mobility: * Walk Chief Complaint: pharygnitis, sinus congestion kitchen lead Note (Subjective/Objective): Pt to ED with the above complaints ongoing x 2 weeks. denied fever, chills, n-v-d. pt appeared awake and alert. VSS. no distress noted. Level of Consciousness (AVPU): Alert = Appears aware of and responsive to the environment on their own. Follows commands, opens eyes spontaneously, and tracks objects. Vital Signs: Temperature 98 F (36.7 C) Pulse 98 Respirations 18 Blood Pressure 118/82 Pulse Oximetry 98 Room Air Pain: DVPRS Scale Location: see above Defense and Veterans Pain Rating Scale (DVPRS): 3 Sometimes distracts me Pain Score: 3 Patient's acceptable pain goal: 0 No pain Suicide Screen: Witt Suicide Severity Rating Scale (C-SSRS) screener 1. Over the past month, have you wished you were or wished you could go to sleep and not wake up? No 2. Over the past month, have you had any actual thoughts of killing yourself? No 3. Over the past month, have you been thinking about how you might do this? Response not required due to responses to other questions. 4. Over the past month, have you had these thoughts and had some intention of acting on them? Response not required due to responses to other questions. 5. Over the past month, have you started to work out or worked out the details of how to kill yourself? Response not required due to responses to other questions. 6. If yes, at any time in the past month did you intend to carry out this plan? Response not required due to responses to other questions. 7. In your lifetime, have you ever done anything, started to do anything, or prepared to do anything to end your life (for example, collected pills, obtained a gun, gave away valuables, went to the roof but didn't jump)? No 8. If YES, was this within the past 3 months? Response not required due to responses to other questions. Emergency Severity Index (FLORENTINO) level: Level 4 Previously documented allergies: Patient has answered NKA Current Problems: 1) Hypertension 2) Gout 3) Back pain 4) Goiter 5) Pulmonary fibrosis 6) AL amyloidosis 7) Exposure to potentially hazardous substance 8) HFrEF - heart failure with reduced ejection fraction /luan/ ELLY ALCANTAR RN BSN REGISTERED NURSE Signed: 10/27/2024 12:17 ELLY ALCANTAR [facility]
--- OUTSIDE RECORDS SUMMARY | 2025-06-24 11:49 | XMS_ITS | Encounter Summary ---
Author Organization [facility] Address [address] [place] [address] Phone Care Team Providers Care Industrial Hygiene Manager Name Role Phone Anuel Vargas Primary Care Provider [phone] Justin Flowers MD Unavailable Erlin Chong MD Unavailable Katerina Romero RN Unavailable Unavailable Alexandra Powell RN Unavailable [phone] Encounter Details Date Type Department Care Team (Late st Contact Info) Description 02/13/2024 Telephone [facility] Bone Marrow Transplant [address] [facility] [address], [place] [address] Alma Carranza V. Social History Tobacco Use Types Packs/Day Years Used Date Smoking Tobacco: Never Cigarettes Smokeless Tobacco: Never [facility] Utilities Answer Date Recorded In the past 12 months has [employer], gas, oil, or water [employer] threatened to shut off services in your [...] week 11/28/2023 How often do you attend [facility] or gnosticism services? Never 11/28/2023 Do you belong to any clubs o r organizations such as congregational groups, unions, fraternal or athletic groups, or [...] in a snf (including now)? No 11/28/2023 Personal Safety Answer Date Recorded Have you ever been in or are you currently in a harmful physical or emotional relationship or is someone making you feel afraid or unsafe? 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 Gender Identity Male 05/28/2021 8:44 PM CDT Sexual Orientation Straight 10/19/2022 9: 47 AM ELECTRIC UTILITY LINEWORKER documented as of this encounter Plan of Treatment Upcoming Encounters Date Type Department Care Team (Late st Contact Info) Description 07/01/2025 Hospital Encounter [facility] [address] [facility] [address] [place] [address] Dmitry Dean MD [address] [facility] [address] [place] [address] Scheduled Procedures Name Priority Associated Diagnoses Date/Ti me ENDOMYOCARDIAL BIOPSY [id number] 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 Immunosuppression documented as [...] documented as of this encounter Care Teams Industrial Hygiene Manager Relationship Specialty Start Date End Date Anuel Vargas DO PCP - General Internal Medicine 10/19/22 Justin Flowers MD [address] [facility] BONE MARROW TRANSPLANT[address] [place] [address] Consulting Physician Medical Oncology 10/06/23 Erlin Chong MD [address] [facility] BONE MARROW TRANSPLANT, [address] [place] [address] Referring Physician Cardiology 10/06/23 Katerina Romero, analysis evaluatorWound Care Technician Cardiothoracic Surgery 04/03/25 05/20/25 Alexandra Powell, RN [address] [facility] [address] [place] [address] [id number] Wound Care Technician Transplant 05/21/25 documented as of this encounter
--- OUTSIDE RECORDS SUMMARY | 2025-06-24 11:49 | XMS_ITS | Encounter Summary ---
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 Date/Time Encounter Type Encounter Description Reason Pro vider Source Jun 12, 2025 11:59 AM Outpatient Encounter COMMUNITY CARE CONSULT IHE Encounter Template Text not used by VA Plan of Treatment: Future Appointments (+ 6 [...] 20 appointments. The data comes from all [facility]. Appointment Date/Time Appointment Type Appointme nt Facility Name Jun 13, 2025 08:00 AM AMBULATORY - NONE [facility] Jun 17, 2025 12:00 PM AMBULATORY - NONE [facility] Jul 24, 2025 09:00 AM AMBULATORY - MEDICINE [facility] Aug 14, 2025 02:40 PM AMBULATORY - NONE [facility] Active, Pending, and Scheduled Orders This section includes a listing of several types of active, pending, and scheduled orders, including clinic medications orders, diagnostic test orders, procedure orders and consult orders; where the start date of the order is 45 days before the date of the Encounter or 45 days after the date of theEncounter. The data comes from all [facility]. Test Date/Time Test Type Test Details Facility Name Jun 06, 2025 09:09 PM Consult Order COMMUNITY CARE-[facility]ILL[facility] Cons In Store Banker's Choice [facility] Social History: Smoking Status (Most current) and Tobacco Use (All prior to encounter date) This section includes the most current, and the historical, smoking and tobacco- related health factors from the [place] facility where the Encounter took place. Current Smoking Status This section includes the most current smoking, or tobacco-related health factor, from the [place] facility where the Encounter took place. Date/Time Current Smoking Status Comment Khurram ity Jan 17, 2025 09:00 AM [place]-TOBACCO NEVER U SED CIGARETTES [facility] Tobacco Use History This section includes a history of the smoking, or tobacco-related health factors, that were collected on or before the date of the Encounter. The data comes from the [place] facility where the Encounter took place. Date/Time Smoking Status/Tobacco Use Comment F acility Jan 17, 2025 09:00 AM [place]-TOBACCO NEVER [place] SED OTHER TYPE [facility] Feb 10, 2024 06:16 PM ORYX ADMIT TOBACCO SCREEN NO [facility] Advance Directives: All historical and current Section Date Range: From patient's date of to the date document was created. This section includes ALL of a patient's completed or amended [place] Advance and Rescinded Directives. The entries below indicate that a directive exists for the patient, but an actual copy is not included with this document. The data comes from all [place] facilities. Date Advance Directives Provider Source Feb 16, 2024 ADVANCE DIRECTIVE GINA BRIGHT [facility] Encounter Notes: All associated encounter notes This section contains the clinical notes associated to the Encounter. Date/Time Encounter Note(s) Provider Source Jun 12, 2025 11:59 AM NONVA NOTE: LOCAL TITLE: COMMUNITY CARE-CARE COORDINATION PLAN NOTE [address] STANDARD TITLE: NONVA NOTE DATE OF NOTE: JUN 12, 2025@11:59 ENTRY DATE: JUN 12, 2025@11:59:16 AUTHOR: KHALIF DE JESUS COSIGNER: URGENCY: STATUS: COMPLETED THE PATIENT HAS BEEN REFERRED TO THE FOLLOWING SERVICES HOME CARE SERVICES: Community skilled home health care SN/WC, PT - in accordance with [place] Standardized Episode of Care (SEOC) Post heart transplant wound care, med education, lab draws. [facility] ORDERS Draw Blood Enter start date: May List tests and frequency. CBC, CMP, Mag, [place] level. Q 2 weeks. Labs to be performed as Non-Fasting HOME CARE SERVICE FUNDING: [place]: [facility] NAME OF AGENCY TO PROVIDE CARE: KENZIEVITO KENNETH Ray [address] [place] [address] P:[phone] F: [phone] DURATION OF CARE (Non-Hospice Services): 120 DAYS OR WHENEVER PATIENT GOALS ARE MET, WHICHEVER COMES FIRST Date service is projected to start: 06/13/25 (VA consults terminate automatically after 120 days) *Please send all correspondence/orders to be signed to: Provider name: Yaakov Lawrence Phone number: [phone] Fax number: [phone] PLAN: New Services-Transition to Skilled Home Health Services. Helpful phone numbers: [facility] [address]le L[address] [facility] Email: [email or web address] /es/ KHALIF DE JESUS RN Patient Care Service, Care in the Community Unit Signed: 06/12/2025 12:19 KHALIF DE JESUS [facility]
--- OUTSIDE RECORDS SUMMARY | 2025-06-24 11:49 | XMS_ITS | Encounter Summary ---
Author Name [facility] [place] [facility] [place] [facility] [place] Address [address] [place] [address] Care Team Providers Care Rides Attendant Name Role Phone ADAMA CHACON Primary Care [...] Kennedy's Name Patient's Relationship to Policy Kennedy [facility] 2024 [facility] Nov 21, 2024 [facility] [id number] [phone] Elzbieta ZUNIGA PATIENT Selected Encounter This section includes the [place] on [place] at [place] for the Encounter. 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 This section includes future appointments and future orders which are active, pending or scheduled. Future Appointments This section includes appointments that were scheduled to occur 6 months from the date of the Encounter, up to a maximum of 20 appointments. The data comes from all [facility]. Appointment Date/Time Appointment Type Appointme nt Facility Name Sep 18, 2024 07:00 AM AMBULATORY - NONE [facility] Sep 18, 2024 07:15 AM AMBULATORY - MEDICINE [facility] Sep 18, 2024 12:00 PM AMBULATORY - MEDICINE [facility] Oct 27, 2024 12:11 PM AMBULATORY - MEDICINE [facility] Jan 09, 2025 08:00 AM AMBULATORY - MEDICINE [facility] Jan 09, 2025 08:30 AM AMBULATORY - MEDICINE [facility] Jan 17, 2025 09:00 AM AMBULATORY - MEDICINE [facility] Jan 22, 2025 07:45 AM AMBULATORY - SURGERY [facility] Jan 25, 2025 07:30 AM AMBULATORY - NONE [facility] Jan 29, 2025 10:00 AM AMBULATORY - MEDICINE [facility] Active, Pending, and Scheduled Orders This section includes a listing of several types of active, pending, and scheduled orders, including clinic medications orders, diagnostic test orders, procedure orders and consult orders; where the start date of the order is 45 days before the date of the Encounter or 45 days after the date of theEncounter. The data comes from all [facility]. Test Date/Time Test Type Test Details Facility Name Sep 18, 2024 12:00 AM Laboratory - Blood Bank Order TYPE & SCREEN - LAB BLOOD SP [facility] Social History: Smoking Status [...] Feb 16, 2024 ADVANCE DIRECTIVE GINA BRIGHT [facility] Encounter Notes: All associated encounter notes This section contains the clinical notes associated to the Encounter. Date/Time Encounter Note(s) Provider Source Aug 14, 2024 11:06 AM ADDENDUM: LOCAL TITLE: Addendum STANDARD TITLE: ADDENDUM DATE OF NOTE: AUG 14, 2024@11:06:55 ENTRY DATE: AUG 14, 2024@11:06:56 AUTHOR: ANTHONY LEYVA COSIGNER: URGENCY: STATUS: COMPLETED Contact made with to discuss treatment plan as documented by Dr. Vergara. [place] is agreeable to plan for DIANNE and a RHC. is unavailable to complete RHC on 08/21 due to infusion scheduled at [facility] for that day. Will discuss with recruiting scheduler to coordinate patient appt for 09/[address] 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 /luan/ ANTHONY LEYVA,MSN,RN REGISTERED NURSE Signed: 08/14/2024 11:11 Receipt Acknowledged By: 08/15/2024 07:41 /luan/ ABRIL VERGARA MD PHD STAFF PHYSICIAN AND CHIEF OF HEART FAILURE === --- Original Document --- 08/10/24 CARDIOLOGY CHART REVIEW STL: BRIEF NOTE Discussed with Dr. Chong re: Mr. Zuniga'marck NIHARIKA thrombus and his Afib burden. -Will plan on repeating DIANNE in August (~2 months from prior) -Will plan on RHC at the same time to assess filling pressures and cardiac compensation. -I have tried calling Mr. Zuniga to let him know this plan, but was unable to get a hold of him. /luan/ ABRIL VERGARA MD PHD STAFF PHYSICIAN AND CHIEF OF HEART FAILURE Signed: 08/10/2024 16:03 Receipt Acknowledged By: 08/14/2024 11:20 /luan/ ANTHONY LEYVA,MSN,RN REGISTERED NURSE 08/13/2024 ADDENDUM STATUS: COMPLETED ADHF RNCM has attempted to contact to discuss plan of care. No answer. was left with request to call RNCM at [phone] extension [phone] it his earliest convenience to discuss. /luan/ AKILAH CLAROS,RN REGISTERED NURSE Signed: 08/13/2024 11:30 ANTHONY LEYVA [facility] Aug 10, 2024 04:01 PM CARDIOLOGY NOTE: LOCAL TITLE: CARDIOLOGY CHART REVIEW STL STANDARD TITLE: CARDIOLOGY NOTE DATE OF NOTE: AUG 10, 2024@16:01 ENTRY DATE: AUG 10, 2024@16:01:43 AUTHOR: ABRIL VERGARA EXP COSIGNER: URGENCY: STATUS: COMPLETED CARDIOLOGY CHART REVIEW STL Has ADDENDA BRIEF NOTE Discussed with Dr. Chong re: Mr. Zuniga'marck NIHARIKA thrombus and his Afib burden. -Will plan on repeating DINANE in August (~2 months from prior) -Will plan on RHC at the same time to assess filling pressures and cardiac compensation. -I have tried calling Mr. Zuniga to let him know this plan, but was unable to get a hold of him. /luan/ ABRIL VERGARA MD PHD STAFF PHYSICIAN AND CHIEF OF HEART FAILURE Signed: 08/10/2024 16:03 Receipt Acknowledged By: 08/14/2024 11:20 /es/ ANTHONY AUTUMN,MSN,RN REGISTERED NURSE 08/13/2024 ADDENDUM STATUS: COMPLETED ADHF RNCM has attempted to contact to discuss plan of care. No answer. VM was left with request to call RNCM at [phone] extension [phone] it his earliest convenience to discuss. /luan/ ANTHONY LEYVAMSN,RN REGISTERED NURSE Signed: 08/13/2024 11:30 08/14/2024 ADDENDUM STATUS: COMPLETED Contact made with to discuss treatment plan as documented by Dr. Vergara. is agreeable to plan for DIANNE and a RHC. is unavailable to complete RHC on 08/21 due to infusion scheduled at [facility] for that day. Will discuss with recruiting scheduler to coordinate patient appt for 09/[address] 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 /luan/ ANTHONY LEYVAMSN,RN REGISTERED NURSE Signed: 08/14/2024 11:11 Receipt Acknowledged By: * AWAITING SIGNATURE * ABRIL VERGARA JONATHAN D [facility]
--- OUTSIDE RECORDS SUMMARY | 2025-06-24 11:49 | XMS_ITS | Encounter Summary ---
Author Name [facility] [place] [facility] [place] Organization [facility] [place] Address [address] [place] [address] Care Team Providers Care Manager Floral Name Role Phone OSWALDO ADAMA Primary Care [...] Policy Kennedy [facility] 2024 [facility] Nov 21, 2024 [facility] [id number] [phone] Elzbieta ZUNIGA PATIENT Selected Encounter This [...] Feb 16, 2024 ADVANCE DIRECTIVE GINA BRIGHT [facility]
--- OUTSIDE RECORDS SUMMARY | 2025-06-24 11:49 | XMS_ITS ---
Author Organization [facility] Address [address] [place] [address] Care Team Providers Care Casting Sorter Name Role Phone Alicia Anuel Roberto DO Primary Care Provider + [phone] Justin Flowers MD Unavailable Erlin Chong MD Unavailable Alexandra Powell RN Unavailable [phone] Transplant Episode Heart Recipient [facility] ([place], [place]) - [facility] Organ Received: Heart Transplanted on 05/21/2025 Marked as Active Follow-up on 05/21/2025 Heart CoordinatorAlexandra Powell RN Fax: N/A Email: N/A [place] Organ Diagnosis Organ Primary Contributory Heart Restrictive [...] Role Phone Fax Email Alexandra Powell RN Melangeur Operator [phone] N/A N/A Addy Tapia MD Surgeon [phone] N/A Events Post-Transplant Pre-Transplant Admitted: 04/08/2025 Referred: 04/08/2025 Transplanted: 05/21/2025 Evaluation began: 5 Discharged: 06/11/2025 Committee: 04/12/2025 Center waitlisted: 5 Appointments (05/24/2025 - 07/25/2025) When With Visit Type Description 06/17/2025 Transplant Return 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
--- OUTSIDE RECORDS SUMMARY | 2025-06-24 11:55 | XMS_ITS | Referral Summary ---
Author Organization [facility] [place] [facility] Address [address] [place] [address] Care Team Providers Care Project Controller Name Role Phone AliciaAnuel Pardeep CASTRO Primary Care Provider [phone] Justin Flowers MD Unavailable Erlin Chong MD Unavailable Alexandra Powell RN Unavailable [phone] Encounters Date Type Department Care Team Description 06/21/2025 Telephone [facility] Transplant Heart [address] [facility] 3401 Mailstop [phone] [place] [address] Alda Coburn 06/18/2025 1:52 PM CDT - 06/18/2025 11:59 PM CDT Hospital Encounter [facility] Radiology [facility] [address] [place] [address] Heart transplanted (HCC) Discharge Disposition: Discharge to home or self care 06/18/2025 12:06 PM CDT - 06/18/2025 11:59 PM CDT Hospital Encounter [facility] Radiology [facility] [address] [place] [address] Follow-up examination following surgery Discharge Disposition: Discharge to home or self care 06/18/2025 12:30 PM CDT Office Visit [facility] Cardiothoracic Surgery [address] [place] [address] [facility] 8th Floor [address] Room [address] [place] [phone] Addy Tapia MD Heart transplanted (HCC) (Primary Dx) 06/17/2025 Telephone [facility] Transplant Heart [address] [facility] [address] Mailstop [phone] [place] [address] Mono Niño RN 06/17/2025 1:58 PM CDT - 06/17/2025 11:59 PM CDT Hospital Encounter [facility] [address] [place] [address] 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) Discharge Disposition: Discharge to home or self care 06/17/2025 12:00 PM CDT Office Visit [facility] Cardiology [address] [place] [address] Medical Office Building [address] [place] [address] Acute kidney injury superimposed on CKD (Primary Dx); Acute hepatitis C virus infection without hepatic coma; AL amyloidosis (HCC); 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); Heart transplanted (HCC) 06/17/2025 11:28 AM CDT - 06/17/2025 11:59 PM CDT Hospital Encounter [address] [facility] [place] [address] 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) Discharge Disposition: Discharge to home or self care 06/17/2025 12:00 PM CDT - 06/17/2025 12:30 PM CDT Surgery [address] [facility] [place] [address] Carlos Fairbanks MD ENDOMYOCARDIAL BIOPSY [address] 06/17/2025 12:00 PM CDT - 06/17/2025 11:59 PM CDT Hospital Encounter [address] [place] [address] Rodney Amos MD PhD 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) Discharge Disposition: Discharge to home or self care 06/14/2025 Orders Only [facility] Gastroenterology [address] [facility] 12th [place] [address] [place] [phone] Yamel Pearson, RN Hepatitis C virus infection without hepatic coma, unspecified chronicity (Primary Dx) 06/14/2025 Telephone [facility] Transplant Heart [address] [facility] [address] Mailstop [phone] [place] [address] Chidi Iglesias 06/13/2025 Telephone [facility] Transplant Heart [address] [facility] [address] Mailstop [phone] [place] [address] Yue Corado 06/13/2025 Orders Only [facility] Transplant Heart [address] [facility] [address] Mailstop [phone] [place] [address] Yue Corado 06/13/2025 Telephone [facility] Gastroenterology [facility] Advanced Medicine 12th [place] [address] [place] [address] Yamel Pearson RN 06/13/2025 Documentation [facility] Gastroenterology [address] [facility] Medicine 12th [place] [address] [place] [address] Yamel Pearson RN 06/12/2025 7:15 PM CDT - 06/12/2025 8:31 PM CDT Emergency [facility] Emergency Department 1 [place] [address] Yossi Hodges MD Fall, initial encounter (Primary Dx); Multiple abrasions; Periorbital hematoma of right eye; History of heart transplant (HCC) Discharge Disposition: Discharge to home or self care 06/12/2025 Telephone [facility] Social Work 1 [place] [address] Alexandra Colin LCSW 06/12/2025 Telephone [facility] Transplant Heart [address] [facility] [address] Mailstop [phone] [place] [address] Alda Coburn 06/11/2025 Orders Only [facility] Bone Marrow Transplant [address] [facility] Floor 6 [place] [id number] Justin Lowery MD AL amyloidosis (HCC) (Primary Dx) 04/08/2025 7:46 AM CDT - 06/11/2025 4:58 PM CDT Hospital [facility] 1 [place] [address] Artur, Creping Machine Operator, MD Lawrence, Yaakov Valera MD PhD Sintek, MD Sai Goyal, MD Mavis Harvey, MD Sofya Green, Zev Mckoy MD PhD Willie, MD Gwendolyn Stout, Jessica Govea MD PhD 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) [...] Discharge to home, home health skilled care 06/07/2025 Telephone [facility] Transplant Heart [address] [facility] 3401 Mailop -525 [place] [address] Alexandra Powell, CECE 06/07/2025 Telephone [facility] Transplant Heart [address] [facility] [address] Mailstop -[phone] [place] [address] Alexandra Powell, RN 06/07/2025 Documentation [facility] Endocrinology Metabolism and Lipid [address] [facility] 13th [place] [address] [place] [address] aCrolyn Ponce MD 06/04/2025 Orders Only [facility] Cardiothoracic Surgery [address] [facility] 8th Floor [address] Room [phone] [place] [phone] Addy Tapia MD Follow-up examination following surgery (Primary Dx) 06/03/2025 8:15 AM CDT - 06/03/2025 9:40 AM CDT Surgery [facility] Heart and Vascular Center [address] [place] [phone] Rodney Amos MD PhD ENDOMYOCARDIAL BIOPSY [id number] 05/28/2025 Results Follow-Up [facility] Gasteroenterology [address] [facility] 12th Floor [address] [place] [phone] Jessica Marti MD Hepatitis C genotype Blood 05/21/2025 Telephone [facility] Transplant Kidney [address] [facility] 34[address] Mailstop [phone] [place] [address] Libia Frances 05/21/2025 Telephone [facility] Transplant Kidney [address] [facility] [address] Mailstop [address] [place] [address] Libia Frances 05/20/2025 9:20 PM CDT Ancillary Procedure [facility] Operating Room 1 [place] [address] Gosia Wilkins MD PhD 05/20/2025 10:32 PM CDT Anesthesia Event [facility] Operating Room 1 [place] [address] Gosia Wilkins MD PhD Alma Roldan MD 05/20/2025 10:30 PM CDT - 05/21/2025 8:30 AM CDT Surgery [facility] Operating Room 1 [place] [address] Addy Tapia MD TRANSPLANT HEART UNOS:[id number] [[id number]] 05/19/2025 Telephone [facility] Transplant Lung [address] [facility] [address]01 Mailstop -[phone] [place] [address] Radha Sullivan, oil and gas superintendent Organ Offer 05/17/2025 9:30 AM CDT - 05/17/2025 10:50 AM CDT Surgery [facility] Heart and Vascular Center 1 [place] [address] Vannesa Gibbs MD RIGHT HEART CATHETERIZATION [id number] 05/16/2025 Documentation [facility] Transplant Heart [address] [facility] [address]01 Mailstop -[phone] [place] [address] Katerina Romero, CECE Waitlist Maintenance 05/08/2025 Documentation [facility] Endocrinology Metabolism and Lipid 49[address] [facility] for Advanced Medicine 13th [place] [address] [place] [address] Edmundo Best MD 05/02/2025 11:40 AM CDT - 05/02/2025 1:50 PM CDT Surgery [facility] Heart and Vascular [address] [address] Felicitas Rodgers DO RIGHT HEART CATHETERIZATION [id number] 05/01/2025 Documentation [facility] Transplant Heart [address] [facility] [address] Mailstop -[phone] [place] [address] Katerina Romero RN 04/29/2025 Orders Only [facility] Bone Marrow Transplant [address] [facility] Floor 6 [place] [id number] Stephon Lundy MD 04/29/2025 Orders Only [facility] 1 [place] [address] Jerome Mora, [facility] 04/17/2025 Documentation [facility] Transplant Heart [address] [facility] [address] Mailstop -[phone] [place] [address] Katerina Romero, RN New Transplant Listing 04/17/2025 Documentation [facility] Transplant Heart [address] [facility] [address] [place] [address] Katerina Romero, RN Hepatitis B Vaccination Assessment 04/17/2025 Documentation [facility] Transplant Heart [address] [facility] [address] [place] [address] Katerina Romero, RN ABO Verification 04/17/2025 Documentation [facility] Transplant Heart [address] [place] [address] [place] [address] Katerina Romero, CECE 04/17/2025 Orders Only [facility] Endocrinology Metabolism and Lipid [address] [facility] Medicine 13th [place] [address] [place] [address] Carolyn Ponce MD Thyroid nodule (Primary Dx) 04/16/2025 10:15 AM CDT - 04/16/2025 11:25 AM CDT Surgery [facility] Heart and Vascular Center 1 [place] [address] Felicitas Rodgers, RIGHT HEART CATHETERIZATION [address] with leave-in [place] 04/12/2025 Documentation [facility] Transplant Heart [address] [place] [address] [place] [address] Sindy Melara 04/10/2025 Documentation [facility] Transplant Heart [address] [place] [address] [address] [place] [address] Katerina Romero, RN Pre-transplant Patient Education 04/09/2025 Telephone [facility] Transplant Heart [address] [place] [address] [address] [place] [address] Katerina Romero RN 04/09/2025 11:32 AM CDT - 04/09/2025 11:59 PM CDT Hospital Encounter [facility] Pulmonary 1 [place] [address] Discharge Disposition: Discharge to home or self care 04/09/2025 8:45 AM CDT Ancillary Procedure [facility] Vascular Lab IP 1 [facility] [address] [place] [address] 04/09/2025 8:40 AM CDT Ancillary Procedure [facility] Vascular Lab IP 1 [facility] [address] [place] [address] 04/09/2025 Telephone [facility] Transplant Kidney [address] [facility] 3401 Mailstop [phone] [place] [address] Leonor Pollard 04/08/2025 Telephone [facility] Transplant Heart [address] [facility] 3401 Mailstop [phone] [place] [address] Katerina Romero RN 04/08/2025 8:15 AM CDT - 04/08/2025 9:30 AM CDT Surgery [facility] Heart and Vascular Center 1 [place] [address] Jessica Snow MD PhD RIGHT HEART CATHETERIZATION [id number] 04/05/2025 Telephone [facility] Transplant Heart [address] [facility] 3401 Mailstop [phone] [place] [address] Chidi Iglesias 04/04/2025 9:40 AM CDT Office Visit [facility] Nephrology [address] [facility] 5th [place] [address] [place] [address] Jackie Block MD Persistent proteinuria (Primary Dx); CKD (chronic kidney disease) stage 2, GFR 60-89 ml/min; Localized edema 04/03/2025 Telephone [facility] Cardiology [address] [facility] 8th [place] [address] [place] [address] Erlin Chong MD 04/03/2025 Telephone [facility] Transplant Heart [address] [facility] [address] Mailstop [phone] [place] [address] Chidi Iglesias 04/02/2025 Telephone [facility] Transplant Heart [address] [facility] [address] Mailstop [phone] [place] [address] Katerina Romero RN 04/02/2025 Orders Only [facility] Transplant Heart [address] [facility] [address] Mailstop [phone] [place] [address] Katerina Romero RN Chronic heart failure with preserved ejection fraction (HCC) (Primary Dx) 04/02/2025 9:45 AM CDT Lab [facility] - Lab Collection [address] [place] [address] AL amyloidosis (HCC) 04/02/2025 12:00 PM CDT Infusion [facility] - Infusion [address] [place] [address] AL amyloidosis (HCC) (Primary Dx) 04/02/2025 10:45 AM CDT Office Visit [facility] Bone Marrow Transplant [address] [place] [address] Anuradha Gagnon NP AL amyloidosis (HCC) (Primary Dx) from Last 3 Months Allergies No known active allergies Medications pen needle, diabetic (Pen Needle) 32 gauge x 5/32 needle Use as directed once a day. 100 each 025 Active blood-glucose meter kit Use as directed. 1 kit Active blood glucose diagnostic (glucose blood) strip [...] directed 3 times a day. 100 each Active methocarbamoL (ROBAXIN) 500 mg tablet Take 1 tablet (500 mg total) by mouth 3 (three) times a day as needed for muscle spasms 90 tablet Active mycophenolate mofetil (CELLCEPT) 500 mg tablet Take 2 tablets (1,000 mg total) by mouth every 12 (twelve) hours [address] (PROTONIX) 20 mg EC tabletIndication s:Stress Ulcer Prophylaxis Take 1 tablet (20 mg total) by mouth daily 30 tablet 2025 Active rosuvastatin (CRESTOR) 10 mg tablet Take 1 tablet (10 mg total) by mouth nightly 30 tablet 2025 Active valGANciclovir (VALCYTE) 450 mg tabletIndication s:Prophylaxis, Medical Take 1 tablet (450 mg total) by mouth daily 30 tablet 2 2024 Active glucagon 1 mg kit Inject 1 mg into the muscle once as directed by provider for low blood sugar. 1 kit Active dapsone 100 mg tabletIndication s:Pneumocystis/T oxoplasmosis [...] total) by mouth daily 30 tablet 11 Active sodium zirconium cyclosilicate (LOKELMA) 10 gram [...] daily 90 tablet 3 025 2025 Active insulin glargine (LANTUS) 100 unit/mL (3 mL) pen for injection Inject 25 Units under the skin daily 15 mL Active tacrolimus 1 mg immediate-releas e capsuleIndicatio ns:immunosuppres ibeth Take 1 capsule (1 mg total) by mouth every morning AND 1 capsule (1 mg total) nightly. 180 capsule 3 025 2025 Active dexlansoprazole (DEXILANT) 60 [...] 3 hours prior to each daratumumab dose. 025 2024 Discontinued diphenhydrAMINE 25 mg capsuleIndicatio ns:AL amyloidosis (HCC) Take 1 tablet/capsule (25 mg total) by mouth 1 to 3 hours prior to each daratumumab dose. 025 2024 Discontinued acetaminophen (TYLENOL) 325 mg tablet Take 2 tablets (650 mg total) by mouth as needed 025 2024 Discontinued apixaban (ELIQUIS) 5 mg tablet [...] with food 168 tablet 025 2024 Discontinued(R eomalenaer) insulin glargine (LANTUS) 100 unit/mL (3 mL) [...] Sliding Scale Insulin Instructions. 15 mL 3 2024 Discontinued dapsone 100 mg tabletIndication s:Pneumocystis/T [...] 3 (three) times a week 12 tablet 2024 Discontinued tacrolimus 1 mg immediate-releas e capsuleIndicatio ns:immunosuppres ibeth Take 2 capsules (2 mg total) by mouth daily AND 1 capsule (1 mg total) nightly. 90 capsule 2024 Discontinued insulin glargine (LANTUS) 100 unit/mL (3 mL) pen for injection Inject 28 Units under the skin nightly 15 mL 11 025 2024 Discontinued insulin glargine (LANTUS) 100 unit/mL (3 mL) pen for injection Inject 31 Units under the skin daily 15 mL 025 2024 Discontinued bumetanide (BUMEX) 1 mg tablet Take 1 tablet (1 mg total) by mouth daily 30 tablet 025 2024 Discontinued bumetanide (BUMEX) 1 mg tablet Take 1 tablet (1 mg total) by mouth 2 (two) times a day 60 tablet 025 2024 Discontinued(A lternate therapy) glecaprevir-pibr entasvir (MAVYRET) 100-40 mg tablet per tabletIndication s:Viral Hepatitis C,8 week course Take 3 tablets by mouth daily take with food 168 tablet 2024 Discontinued(R eorder) Active Problems Problem Noted Date Diagnosed Date Acute hepatitis C virus infection without hepati c coma 06/17/2025 Overview (06/17/2025): Hep C IRINA+ donor with seroconversion - Antiviral therapy started 06/05/25 Hyperkalemia 06/17/2025 Overview (06/17/2025): Post-transplant - Continue dapsone 100mg given persistent hyperkalemia, dc [place], subsequent encounter 06/17/2025 Immunosuppression 06/17/2025 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 06/07/2025 Overview [...] # 1 RA 8, Grade 0R -06/04 CARRIAGE DOGGER weaned to off -06/05 ECHO Normal left [...] for molecular testing (ThyroSeq) -[facility] contacted ([phone] option 4)-they are planning send sample out [...] for molecular testing (ThyroSeq) -[facility] contacted ([phone] option 4)-they are planning send sample out [...] droxidopa at home -SBP > 95 - 7/15 currently requiring no support, will not be [...] lung disease) 07/19/2023 GERD (gastroesophageal reflux disease) Assessment & Plan (05/29/2025 11:34 PM CDT): [...] low cardiac output at rest. -TTE at [facility] 12/2024: EF 30-35%, moderate RV dysfunction, severe [...] transplanted, whichever comes first -[facility] w/ leave-in [place] today -Strict I&Os, daily standing weights, 2G [...] low cardiac output at rest. -TTE at [facility] 12/2024: EF 30-35%, moderate RV dysfunction, severe [...] low cardiac output at rest. -TTE at [facility] 12/2024: EF 30-35%, moderate RV dysfunction, severe [...] low cardiac output at rest. -TTE at [facility] 12/2024: EF 30-35%, moderate RV dysfunction, severe [...] low cardiac output at rest. -TTE at [facility] 12/2024: EF 30-35%, moderate RV dysfunction, severe [...] low cardiac output at rest. -TTE at [facility] 12/2024: EF 30-35%, moderate RV dysfunction, severe diastolic dysfunction, could not rule out LV apical thrombus -NT-proBNP 7,899 -started CARRIAGE DOGGER 2.5mcg/kg/hr -continue digoxin 125mcg daily, torsemide 20mg [...] (07/02/2021): Added automatically from request for surgery [id number] Assessment & Plan (08/03/2021 5:06 PM CDT): [...] No pertinent past medical history 01/22/2021 06/17/2025 Immunizations Immunization Administration Dates Next Due Hep A, Adult 05/31/2025 Hep B Vaccine 05/31/2025 Influenza, Quadrivalent, Faustina l Culture-based MDCK, Preservative Free, Antibiotic Free, Intramuscular 08/26/2020 Influenza, Quadrivalent, Spl it, Intramuscular 09/25/2019 Influenza, Unspecified 10/27/2021,08/26/2020,03/2019 Pfizer SARS-CoV-2 Monovalent Vaccination (12+ Yrs) PONCE-READY TO USE 04/27/2022,11/24/2021 Pfizer SARS-CoV-2 Monovalent Vaccination (12+ Yrs) PURPLE 04/27/2022,11/24/2021,03/03/2021,02/10 Smallpox 12/31/2002 Tdap 05/03/2013 Yellow Fever 04/07/2005 ZOSTER Recombinant 04/06/2022,12/15/2021 Social History Tobacco Use Types Packs/Day Years Used Date Smoking Tobacco: Never Passive Smoke Exposure: Never Smokeless Tobacco: Never Tobacco Cessation:Counseling Given: Not Answered [facility] [employer] Answer Date Recorded In the past 12 months has [employer], gas, oil, or water [employer] threatened to shut off services in your [...] often do you attend chur ch or sabianism services? Never 04/10/2025 Do you belong to any clubs o r organizations such as sabianist groups, unions, fraternal or athletic groups, or [...] any time in the past 12 m [facility], were you homeless or [...] on file Legal Sex Male 12:25 PM A&P TECHNICIAN Gender Identity Male 05/28/2021 8:44 PM CDT Sexual Orientation Straight 10/19/2022 9: 47 AM A&P TECHNICIAN Last Filed Vital Signs Vital Sign Reading [...] 06/18/2025 12:22 PM CDT Plan of Treatment Upcoming Encounters Date Type Department Care Team (Late st Contact Info) Description 07/01/2025 Hospital Encounter [facility] [address] [place] [address] [address] [place] [phone] Dmitry Dean MD [address] [address] Scheduled Procedures Name Priority Associated Diagnoses Date/Ti dc ENDOMYOCARDIAL BIOPSY 88774 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 Immunosuppression Medical Devices Implanted Type Area Load Builder Device Identifier Shelf Expiration Date Model / Serial / Lot Daig Elin[employer] [id number] Angio-Seal Evolution 6fr .035in Guidewire Bypass Tube Suture - [id number] Implanted:Qty: 1 on 07/13/2021 by Mart Pimentel MD at [place] 01/18/2022 [id number] / / [id number] [employer] Sternalock 360 Sternal Closure 74-0004 - [id number] Implanted:Qty: 1 on 05/21/2025 by Soto Causey MD at [facility] N/A: Sternum [employer] 74-0004 / / [employer] Sternalock Ayden 2.4mm 12mm Self Drill Lock Sternum Cancellous 73-2412 - [id number] Implanted:Qty: 4 on 05/21/2025 by Soto Causey MD at [facility] N/A: Sternum [employer] 73-2412 / / [employer] Sternalock Ayden 2.4mm 14mm Self Drill Lock Sternum Cancellous 73-2414 - [id number] Implanted:Qty: 8 on 05/21/2025 by Soto Causey MD at [facility] N/A: Sternum [employer] 73-2414 / / [employer] Sternalock Ayden 2.4mm 18mm Self Drill Lock Sternum Cancellous 73-2418 - [id number] Implanted:Qty: 4 on 05/21/2025 by Soto Causey MD at [facility] N/A: Sternum [employer] [id number] / [...] 1:30 PM CDT 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) ENDOMYOCARDIAL BIOPSY Routine 06/17/2025 1:07 PM CDT 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 ([facility]) SURGICAL PATHOLOGY Routine 06/17/2025 11:37 AM CDT [...] PEP THERAPY Routine 05/28/2025 1:00 PM CDT MEDICAL STAFF CREDENTIALING COORDINATOR EVALUATE AND TREAT STAT 05/28/2025 12:22 PM [...] LINE PLACEMENT Routine 05/21/2025 1:22 AM CDT [place] AN PROCEDURE PLACEHOLDER Routine 05/21/2025 1:21 AM CDT NJ AN CENTRAL LINE QUADRUPLE LUMEN Routine 05/21/2025 [...] CHEMISTRIES, ARTERIAL Routine 05/20/2025 11:46 PM CDT NJ AN PROCEDURE PLACEHOLDER Routine 05/20/2025 11:24 PM CDT NJ AN PROCEDURE PLACEHOLDER Routine 05/20/2025 11:19 PM CDT NJ AN ELECTIVE ENDOTRACHEAL AIRWAY Routine 05/20/2025 11:19 [...] 6:40 PM CDT DIFFERENTIAL AUTO STAT 04/08/2025 6:40 PM CDT DIGOXIN LEVEL Timed 04/08/2025 6:40 [...] normal. No fractures are identified. Procedure Note Webster, Ruddy Gurinder, MD - 06/18/2025 EXAMINATION: CT head without [...] [facility] Neutrophil pct 89.8 % [facility] Comment: Interpretive Data Percent cell count reference ranges are not reported, since discordance with absolute values may lead to misinterpretation of CBC data. Current Interpretive Data was last revised on 2018. Imm gran pct 0.5 % [facility] Comment: Interpretive Data Percent cell count reference ranges are not reported, since discordance with absolute values may lead to misinterpretation of CBC data. Current Interpretive Data was last revised on 2018. Lymphocyte pct 4.2 % [facility] Comment: Interpretive Data Percent cell count reference ranges are not reported, since discordance with absolute values may lead to misinterpretation of CBC data. Current Interpretive Data was last revised on 2018. Monocyte pct 4.9 % [facility] Comment: Interpretive Data Percent cell count reference ranges are not reported, since discordance with absolute values may lead to misinterpretation of CBC data. Current Interpretive Data was last revised on 2018. Eosinophil pct 0.5 % [facility] Comment: Interpretive Data Percent cell count reference ranges are not reported, since discordance with absolute values may lead to misinterpretation of CBC data. Current Interpretive Data was last revised on 2018. Basophil pct 0.1 % [facility] Comment: Interpretive Data Percent cell count reference ranges are not reported, since discordance with absolute values may lead to misinterpretation of CBC data. Current Interpretive Data was last revised on 2018. Blood 06/17/2025 2:15 PM CDT 06/17/2025 2:31 PM CDT Carlos Fairbanks MD LAB BLOOD ORDERABLES Fin al Result Performing Organization Address [facility] de Phone Number [facility] [place] [address] * Tacrolimus level trough (06/17/2025 2:15 PM CDT) [facility] Tacrolimus trough 13.3 ng/mL Comment: Interpretive Data Testing performed by liquid chromatography-tandem mass spectrometry. Therapeutic concentrations vary depending on type of transplanted organ and time elapsed since transplant. Typical trough concentrations range from 5-15 ng/mL. This test was developed and its performance characteristics determined by the [facility] consistent with CLIA requirements. This test has not been cleared or approved by the [place] Food and Drug administration. Current interpretive data last reviewed 2020. Blood 06/17/2025 2:15 PM CDT 06/17/2025 2:31 PM CDT Carlos Fairbanks MD LAB BLOOD ORDERABLES Fin al Result Performing Organization Address [facility] de Phone Number [facility] [place] [address] * (ABNORMAL) CBC with auto differential (06/17/2025 2:15 PM CDT) Pathologist [facility] WBC 8.74 3.80 - 9.90 K/cumm Hgb 7.4(L) 13.0 - 17.5 g/dL [facility] Hct 23.7(L) 38.9 - 50.3 % [facility] Plt 384 150 - 400 K/cumm [facility] MPV 10.2 9.1 - 12.3 fL [facility] RBC 2.86(L) 4.30 - 5.80 M/cumm [facility] MCV 82.9 81.3 - 96.4 fL [facility] MCH 25.9(L) 27.1 - 33.3 pg [facility] MCHC 31.2(L) 32.3 - 35.7 g/dL [facility] RDW CV 15.9(H) 11.1 - 14.9 % [facility] RDW SD 47.0 35.7 - 48.1 fL [facility] NRBC abs 0.00 0.00 - 0.01 K/cumm [facility] Blood 06/17/2025 2:15 PM CDT 06/17/2025 2:31 PM CDT us Carlos Fairbanks MD LAB BLOOD ORDERABLES Fin al Result [facility] [place] [address] * TRANSTHORACIC ECHO (TTE) COMPLETE W DOPPLER/CF WO CONTRAST (06/17/2025 1:30 PM CDT) EF Mod BP 63 % CONS SCIMAGE Anatomical Region Laterality Modality Ultrasound 06/17/2025 12:2 5 PM CDT Narrative 06/17/2025 2:12 PM CDT [facility] Cardiac Diagnostic Lab [address], [address] [place] [address] Transthoracic Echocardiographic Report Patient Name: GOSIA ZUNIGA W : 1965 (60y 1m) Gender: M Study Date: 06/17/2025 12:25:46 PM Ht(Inch): 72 Wt(Lb): 175.05 BSA: 2.01 Professor Of Psychology: Gemma Sheehan, RDCS, RCCS, ACS Location: [facility] [...] Procedure Note Carlos Fairbanks MD - 06/17/2025 [facility] Cardiac Diagnostic Lab [address], [address] [place] [address] Transthoracic Echocardiographic Report Patient Name: GOSIA ZUNIGA W : 1965 (60y 1m) Gender: M Study Date: 06/17/2025 12:25:46 PM Ht(Inch): 72 Wt(Lb): 175.05 BSA: 2.01 Professor Of Psychology: Gemma Sheehan, EBONY, RCCS, ACS Location: [facility] Order Provider:CARLOS FAIRBANKS BMI: 23.74 BP: 133 [...] [ 52 - 72 ] MV Decel Aony112.02 msec [ 104.00 - 258.00 ] LV [...] Seldinger technique and micropuncture approach. A 7 Pakistani sheath was secured into place. 5) Endomyocardial biopsy was performed with echocardiographic guidance using a 7 Pakistani bioptome. The bioptome was visualized on the [...] results best viewed via link to PDF [facility] [place] [address] Note to Patients: This report may contain [...] Gender: M : 1965 (Age: 60) Address: [address] [place], [place] [id number] Hospital #: [id number] Taken:06/17/2025 Received:06/17/2025 Reported: 06/18/2025 Patient Type: [facility]CIMEN Service: UNKNOWN Location: Physician(s): Kalin Byrne M.D. Diagnosis: A. Heart, allograft, endomyocardial biopsy - No evidence of acute cellular rejection (ISHLT grade 0R) - No histologic features suggestive of antibody mediated rejection [facility]/06/18/2025 07:52 By this signature, I attest that [...] Pathology and Flow Cytometry Departments at [facility] as part of an ongoing supplier quality engineer program and in compliance with federally mandated [...] Pathology and Flow Cytometry Departments of [facility]. It has not been cleared or approved [...] BLOOD ORDERABLES Fin al Result DULCE MARIA HAIR [facility] [place] [address] * (ABNORMAL) eGFR (06/17/2025 11:30 AM CDT) [...] LAB BLOOD ORDERABLES Fin al Result [facility] [place] [address] * (ABNORMAL) Comprehensive metabolic panel, without glucose (Outreach) (06/17/2025 11:30 AM CDT) Sodium 136 135 - 145 mmol/L Potassium, pl 3.8 3.3 - 4.9 mmol/L [facility] Chloride 100 97 - 110 mmol/L [facility] CO2 22 22 - 32 mmol/L [facility] Anion gap 14 2 - 15 mmol/L [facility] BUN 65(H) 6 - 25 mg/dL [facility] Creatinine 2.33(H) 0.80 - 1.30 mg/dL [facility] Calcium 8.9 8.5 - 10.3 mg/dL [facility] Protein, pl 6.0(L) 6.5 - 8.5 g/dL [facility] Albumin 3.6 3.5 - 5.0 g/dL [facility] Bilirubin, total 0.4 0.1 - 1.2 mg/dL [facility] Alk phos 190(H) 40 - 130 Units/L [facility] AST 14 10 - 50 Units/L [facility] ALT 30 7 - 55 Units/L [facility] Blood 06/17/2025 11:3 0 AM CDT 06/17/2025 2:24 PM CDT us Carlos Fairbanks MD LAB BLOOD ORDERABLES Fin al Result Performing Organization Address [facility] Co de Phone Number [facility] Department [place] [address] * Tacrolimus level trough (06/13/2025 4:45 PM CDT) Pathologist [facility] SCRIBED Tacrolimus, trough 7.8 5.0 - 20.0 TXP NO LAB FOUND Blood 06/13/2025 4:45 PM CDT us Carlos Fairbanks MD LAB BLOOD ORDERABLES Fin al Result Performing Organization Address City/[facility]/ZIP Co de Phone Number TXP NO LAB FOUND * (ABNORMAL) Comprehensive [...] NO LAB FOUND SCRIBED eGFR in NonAfrican Chilean 42 >89 TXP NO LAB FOUND Osmolality 303 n/a mOsmol/kg TXP NO LAB FOUND Blood 06/13/2025 us Carlos Fairbanks MD LAB BLOOD ORDERABLES Fin al Result Performing Organization Address City/[facility]/ZIP Co de Phone Number TXP NO LAB FOUND * ECG 12-LEAD (06/12/2025 7:05 PM CDT) Narrative [facility] - 06/12/2025 7:05 PM CDT Dnany Rae MD 06/12/2025 7:06 PM ECG 12 [...] Hodges MD ECG ORDERABLES Final Resu lt [facility] * POCT glucose (06/11/2025 12:04 PM CDT) Glucose, POC 189 70 - 199 mg/dL Blood 06/11/2025 12:0 4 PM CDT 06/11/2025 12:04 PM CDT us Addy Tapia MD LAB POCT ORDERABLES - DE VICE Final Result Performing Organization Address [facility] Co de Phone Number [facility] [place] [address] * POCT glucose (06/11/2025 7:46 AM CDT) Glucose, POC 103 70 - 199 mg/dL Blood 06/11/2025 7:46 AM CDT 06/11/2025 7:46 AM CDT Addy Tapia MD LAB POCT ORDERABLES - DE VICE Final Result Performing Organization Address [facility] Co de Phone Number [facility] [place] [address] * Potassium, whole blood (06/11/2025 5:14 AM CDT) Potassium, bld 4.9 3.3 - 4.9 mmol/L Blood 06/11/2025 5:14 AM CDT 06/11/2025 6:27 AM CDT Bar Gamble MD LAB BLOOD ORDERABLES Final R esult Performing Organization Address [facility] Co de Phone Number [facility] [place] [address] * Tacrolimus level trough (06/11/2025 5:14 AM CDT) Tacrolimus trough 9.2 ng/mL Comment: Interpretive Data Testing performed by liquid chromatography-tandem mass spectrometry. Therapeutic concentrations vary depending on type of transplanted organ and time elapsed since transplant. Typical trough concentrations range from 5-15 ng/mL. This test was developed and its performance characteristics determined by the [facility] consistent with CLIA requirements. This test has not been cleared or approved by the [place] Food and Drug administration. Current interpretive data last reviewed 2020. Blood 06/11/2025 5:14 AM CDT 06/11/2025 6:27 AM CDT Zev Cowart MD PhD LAB BLOOD ORDERABLES Fi nal Result Performing Organization Address City/[facility]/ZIP Co de Phone Number [facility] [place] [address] * (ABNORMAL) POCT glucose (06/10/2025 8:53 PM CDT) Pathologist [facility] Glucose, POC 218(H) 70 - 199 mg/dL Blood 06/10/2025 8:53 PM CDT 06/10/2025 8:53 PM CDT Addy Tapia MD LAB POCT ORDERABLES - DE VICE Final Result Performing Organization Address [facility] Co de Phone Number [facility] [employer] [place] [address] * Antibody identification (06/10/2025 8:34 PM CDT) [facility] Antibody ID 1 Anti-CD38 Comment:Panreactive -CD38 on reagent RBCs reacting with anti-CD38 therapy. DTT treatment removes cell surface CD38 and allows detection of common clinically significant antibodies except those against Dilma antigens. TRANSFUSION 2015;55;[id number] Blood 06/10/2025 8:34 PM CDT 06/10/2025 8:34 PM CDT us Dinorah Kahn NP LAB BLOOD BANK TEST ORDERAB LES Final Result Performing Organization Address [facility]/[place] [address] * (ABNORMAL) eGFR (06/10/2025 6:18 PM CDT) [facility] eGFR 50(L) >=60 mL/min/1. 73 m2 [...] CDT 06/10/2025 7:23 PM CDT Libia Suarez PROGRAM SUPPORT CLERK LAB BLOOD ORDERABLES Final Re sult [facility] [place] [address] * (ABNORMAL) CBC without differential (06/10/2025 6:18 PM CDT) WBC 10.00(H) 3.80 - 9.90 K/cumm Hgb 7.8(L) 13.0 - 17.5 g/dL [facility] Hct 23.7(L) 38.9 - 50.3 % [facility] Plt 356 150 - 400 K/cumm [facility] MPV 10.8 9.1 - 12.3 fL [facility] RBC 2.84(L) 4.30 - 5.80 M/cumm [facility] MCV 83.5 81.3 - 96.4 fL [facility] MCH 27.5 27.1 - 33.3 pg [facility] MCHC 32.9 32.3 - 35.7 g/dL [facility] RDW CV 16.3(H) 11.1 - 14.9 % [facility] RDW SD 47.9 35.7 - 48.1 fL [facility] NRBC abs 0.00 0.00 - 0.01 K/cumm [facility] Blood 06/10/2025 6:18 PM CDT 06/10/2025 7:22 PM CDT Dinorah Kahn NP LAB BLOOD ORDERABLES Final Result Performing Organization Address [facility] Co de Phone Number [facility] [employer] [place] [address] * (ABNORMAL) Type and screen (06/10/2025 6:18 PM CDT) Pathologist [facility] Poppy, indirect Positive(A) ABO Rh O Positive [facility] Blood 06/10/2025 6:18 PM CDT 06/10/2025 7:02 PM CDT Narrative [facility] - 06/10/2025 8:34 PM CDT Has the patient had Daratumumab or Isatuximab in the past 6 months?->Unknown Dinorah Kahn NP LAB BLOOD BANK TEST ORDERAB LES Final Result Performing Organization Address [facility] de Phone Number [facility] [place] [employer] [place] [address] * Phosphorus (06/10/2025 6:18 PM CDT) Pathologist [facility] Phosphorus, pl 3.5 2.3 - 4.5 mg/dL Blood 06/10/2025 6:18 PM CDT 06/10/2025 7:23 PM CDT Libia Suarez PROGRAM SUPPORT CLERK LAB BLOOD ORDERABLES Final Re sult Performing Organization Address [facility] Co de Phone Number [facility] [place] [address] * Magnesium (06/10/2025 6:18 PM CDT) [facility] Magnesium 2.1 1.4 - 2.5 mg/dL Blood 06/10/2025 6:18 PM CDT 06/10/2025 7:23 PM CDT Dinorah Kahn PROGRAM SUPPORT CLERK LAB BLOOD ORDERABLES Final Result Performing Organization Address [facility] de Phone Number [facility] Department [place] [address] * (ABNORMAL) Hepatic function panel (06/10/2025 6:18 PM CDT) [facility] Bilirubin, total 0.5 0.1 - 1.2 mg/dL Bilirubin, direct 0.3 0.1 - 0.3 mg/dL [facility] Protein, pl 6.0(L) 6.5 - 8.5 g/dL [facility] Albumin 3.7 3.5 - 5.0 g/dL [facility] Alk phos 295(H) 40 - 130 Units/L [facility] ALT 50 7 - 55 Units/L [facility] AST 24 10 - 50 Units/L [facility] Blood 06/10/2025 6:18 PM CDT 06/10/2025 7:23 PM CDT Libia Suarez PROGRAM SUPPORT CLERK LAB BLOOD ORDERABLES Final Re sult Performing Organization Address [facility] Co de Phone Number [facility] Department [place] [address] * (ABNORMAL) Basic metabolic panel (06/10/2025 6:18 PM CDT) [facility] Sodium 136 135 - 145 mmol/L Potassium, pl 5.1(H) 3.3 - 4.9 mmol/L [facility] Chloride 104 97 - 110 mmol/L [facility] CO2 22 22 - 32 mmol/L [facility] Anion gap 10 2 - 15 mmol/L [facility] BUN 63(H) 6 - 25 mg/dL [facility] Creatinine 1.56(H) 0.80 - 1.30 mg/dL [facility] Glucose 224(H) 70 - 199 mg/dL [facility] Comment: Interpretive Data Fasting glucose >/= 126 [...] 2022. Calcium 9.3 8.5 - 10.3 mg/dL [facility] Blood 06/10/2025 6:18 PM CDT 06/10/2025 7:23 PM CDT Libia Suarez PROGRAM SUPPORT CLERK LAB BLOOD ORDERABLES Final Re sult [facility] [place] [employer] [place] [address] * POCT glucose (06/10/2025 4:36 PM CDT) Glucose, POC 198 70 - 199 mg/dL Blood 06/10/2025 4:36 PM CDT 06/10/2025 4:36 PM CDT Addy Tapia MD LAB POCT ORDERABLES - DE VICE Final Result [facility] [place] [address] * POCT glucose (06/10/2025 11:47 AM CDT) Glucose, POC 146 70 - 199 mg/dL Blood 06/10/2025 11:4 7 AM CDT 06/10/2025 11:47 AM CDT Addy Tapia MD LAB POCT ORDERABLES - DE VICE Final Result Performing Organization Address [facility] Phone Number [facility] [place] [address] * POCT glucose (06/10/2025 7:34 AM CDT) Glucose, POC 96 70 - 199 mg/dL Blood 06/10/2025 7:34 AM CDT 06/10/2025 7:34 AM CDT Addy Tapia MD LAB POCT ORDERABLES - DE VICE Final Result Performing Organization Address [facility] Phone Number [facility] Department [place] [address] * Potassium, whole blood (06/10/2025 5:01 AM CDT) [facility] Potassium, bld 4.9 3.3 - 4.9 mmol/L Blood 06/10/2025 5:01 AM CDT 06/10/2025 5:55 AM CDT Bar Gamble MD LAB BLOOD ORDERABLES Final R esult Performing Organization Address [facility] Phone Number [facility] [place] [address] * Tacrolimus level trough (06/10/2025 4:52 AM CDT) [facility] Tacrolimus trough 8.4 ng/mL Comment: Interpretive Data Testing performed by liquid chromatography-tandem mass spectrometry. Therapeutic concentrations vary depending on type of transplanted organ and time elapsed since transplant. Typical trough concentrations range from 5-15 ng/mL. This test was developed and its performance characteristics determined by the [facility] consistent with CLIA requirements. This test has not been cleared or approved by the US Food and Drug administration. Current interpretive data last reviewed 2020. Blood 06/10/2025 4:52 AM CDT 06/10/2025 6:02 AM CDT Zev Cowart MD PhD LAB BLOOD ORDERABLES Fi nal Result Performing Organization Address [facility] Co de Phone Number [facility] [place] [address] * (ABNORMAL) POCT glucose (06/09/2025 7:56 PM CDT) Glucose, POC 204(H) 70 - 199 mg/dL Blood 06/09/2025 7:56 PM CDT 06/09/2025 7:56 PM CDT Addy Tapia MD LAB POCT ORDERABLES - DE VICE Final Result Performing Organization Address [facility] de Phone Number [facility] Department [place] [address] * (ABNORMAL) Potassium, whole blood (06/09/2025 7:55 PM CDT) Potassium, bld 5.6(H) 3.3 - 4.9 mmol/L Blood 06/09/2025 7:55 PM CDT 06/09/2025 8:02 PM CDT Bar Gamble MD LAB BLOOD ORDERABLES Final R esult Performing Organization Address [facility] Co de Phone Number [facility] [place] [address] * (ABNORMAL) eGFR (06/09/2025 7:49 PM CDT) [...] data was last reviewed 2021. Blood 06/09/2025 7:49 PM CDT 06/09/2025 8:11 PM CDT Libia Suarez PROGRAM SUPPORT CLERK LAB BLOOD ORDERABLES Final Re sult [facility] [place] [address] * (ABNORMAL) CBC without differential (06/09/2025 7:49 PM CDT) WBC 10.31(H) 3.80 - 9.90 K/cumm Hgb 7.2(L) 13.0 - 17.5 g/dL [facility] Hct 22.2(L) 38.9 - 50.3 % [facility] Plt 316 150 - 400 K/cumm [facility] MPV 10.5 9.1 - 12.3 fL [facility] RBC 2.60(L) 4.30 - 5.80 M/cumm [facility] MCV 85.4 81.3 - 96.4 fL [facility] MCH 27.7 27.1 - 33.3 pg [facility] MCHC 32.4 32.3 - 35.7 g/dL [facility] RDW CV 16.8(H) 11.1 - 14.9 % [facility] RDW SD 49.4(H) 35.7 - 48.1 fL [facility] NRBC abs 0.00 0.00 - 0.01 K/cumm [facility] Blood 06/09/2025 7:49 PM CDT 06/09/2025 8:11 PM CDT Dinorah Kahn PROGRAM SUPPORT CLERK LAB BLOOD ORDERABLES Final Result [facility] [place] [address] * Phosphorus (06/09/2025 7:49 PM CDT) Pathologist [facility] Phosphorus, pl 3.5 2.3 - 4.5 mg/dL Blood 06/09/2025 7:49 PM CDT 06/09/2025 8:11 PM CDT Libia Suarez PROGRAM SUPPORT CLERK LAB BLOOD ORDERABLES Final Re sult Performing Organization Address City/[facility]/ZIP Co de Phone Number [facility] [place] [address] * Magnesium (06/09/2025 7:49 PM CDT) Pathologist [facility] Magnesium 1.9 1.4 - 2.5 mg/dL Blood 06/09/2025 7:49 PM CDT 06/09/2025 8:11 PM CDT Dinorah Kahn PROGRAM SUPPORT CLERK LAB BLOOD ORDERABLES Final Result Performing Organization Address City/[facility] Co de Phone Number [facility] [employer] [place], [place] [id number] * (ABNORMAL) Hepatic function panel (06/09/2025 7:49 PM CDT) Bilirubin, total 0.4 0.1 - 1.2 mg/dL Bilirubin, direct 0.2 0.1 - 0.3 mg/dL [facility] Protein, pl 5.6(L) 6.5 - 8.5 g/dL [facility] Albumin 3.4(L) 3.5 - 5.0 g/dL [facility] Alk phos 279(H) 40 - 130 Units/L [facility] ALT 49 7 - 55 Units/L [facility] AST 24 10 - 50 Units/L [facility] Blood 06/09/2025 7:49 PM CDT 06/09/2025 8:11 PM CDT us Libia Suarez PROGRAM SUPPORT CLERK LAB BLOOD ORDERABLES Final Re sult [facility] [place] [address] * (ABNORMAL) Basic metabolic panel (06/09/2025 7:49 PM CDT) [facility] Sodium 135 135 - 145 mmol/L Potassium, pl 5.6(H) 3.3 - 4.9 mmol/L [facility] Chloride 104 97 - 110 mmol/L [facility] CO2 21(L) 22 - 32 mmol/L [facility] Anion gap 10 2 - 15 mmol/L [facility] BUN 61(H) 6 - 25 mg/dL [facility] Creatinine 1.67(H) 0.80 - 1.30 mg/dL [facility] Glucose 202(H) 70 - 199 mg/dL [facility] Comment: Interpretive Data Fasting glucose >/= 126 [...] 2022. Calcium 9.0 8.5 - 10.3 mg/dL [facility] Blood 06/09/2025 7:49 PM CDT 06/09/2025 8:11 PM CDT Libia Suarez NP LAB BLOOD ORDERABLES Final Re sult [facility] [place] [address] * POCT glucose (06/09/2025 4:18 PM CDT) Glucose, POC 189 70 - 199 mg/dL Blood 06/09/2025 4:18 PM CDT 06/09/2025 4:18 PM CDT Addy Jamar Tapia MD LAB POCT ORDERABLES - DE VICE Final Result Performing Organization Address City/[facility]/ZIP Co de Phone Number [facility] [place] [address] * (ABNORMAL) eGFR (06/09/2025 2:34 PM CDT) Pathologist [facility] eGFR 47(L) >=60 mL/min/1. 73 m2 Comment: [...] CDT 06/09/2025 3:24 PM CDT Libia Suarez PROGRAM SUPPORT CLERK LAB BLOOD ORDERABLES Final Re sult [facility] [place] [address] * (ABNORMAL) Comprehensive metabolic panel (06/09/2025 2:34 PM CDT) Sodium 137 135 - 145 mmol/L Potassium, pl 5.6(H) 3.3 - 4.9 mmol/L [place] [facility] Chloride 105 97 - 110 mmol/L [employer] [place] [employer] [facility] [employer] [facility] [facility] [facility] CO2 22 22 - 32 mmol/L [facility] Anion gap 10 2 - 15 mmol/L [facility] BUN 63(H) 6 - 25 mg/dL [employer] [facility] [employer] [facility] [facility] [facility] Creatinine 1.64(H) 0.80 - 1.30 mg/dL [employer] [facility] [employer] [facility] [facility] Glucose 147 70 - 199 mg/dL [facility] Comment: Interpretive Data Fasting glucose >/= 126 [...] 2022. Calcium 9.3 8.5 - 10.3 mg/dL [facility] Bilirubin, total 0.4 0.1 - 1.2 mg/dL [employer] [facility] [facility] Protein, pl 5.7(L) 6.5 - 8.5 g/dL [facility] Albumin 3.5 3.5 - 5.0 g/dL [employer] [facility] [employer] [facility] [facility] Alk phos 277(H) 40 - 130 Units/L [facility] ALT 47 7 - 55 Units/L [facility] AST 20 10 - 50 Units/L [facility] Blood 06/09/2025 2:34 PM CDT 06/09/2025 3:24 PM CDT Libia Suarez NP LAB BLOOD ORDERABLES Final Re sult Performing Organization Address City/[facility]/ZIP Co de Phone Number [facility] [place] [address] * POCT glucose (06/09/2025 11:42 AM CDT) Glucose, POC 108 70 - 199 mg/dL Blood 06/09/2025 11:4 2 AM CDT 06/09/2025 11:42 AM CDT Addy Tapia MD LAB POCT ORDERABLES - DE VICE Final Result Performing Organization Address [facility]/ZIP Co de Phone Number [facility] Department [place] [address] * POCT glucose (06/09/2025 7:46 AM CDT) Glucose, POC 106 70 - 199 mg/dL Blood 06/09/2025 7:46 AM CDT 06/09/2025 7:46 AM CDT Addy Tapia MD LAB POCT ORDERABLES - DE VICE Final Result Performing Organization Address City/[facility] Co de Phone Number [facility] [place] [address] * Potassium, whole blood (06/09/2025 5:19 AM CDT) Potassium, bld 4.9 3.3 - 4.9 mmol/L Blood 06/09/2025 5:19 AM CDT 06/09/2025 5:34 AM CDT us Bar Gamble MD LAB BLOOD ORDERABLES Final R esult Performing Organization Address [facility] Co de Phone Number DULCE MARIA [facility] Department [place] [address] * Tacrolimus level trough (06/09/2025 5:19 AM CDT) Tacrolimus trough 8.2 ng/mL Comment: Interpretive Data Testing performed by liquid chromatography-tandem mass spectrometry. Therapeutic concentrations vary depending on type of transplanted organ and time elapsed since transplant. Typical trough concentrations range from 5-15 ng/mL. This test was developed and its performance characteristics determined by the [facility] consistent with CLIA requirements. This test has not been cleared or approved by the US Food and Drug administration. Current interpretive data last reviewed 2020. Blood 06/09/2025 5:19 AM CDT 06/09/2025 5:37 AM CDT us Zev Cowart MD PhD LAB BLOOD ORDERABLES Fi nal Result Performing Organization Address [facility] Co de Phone Number [facility] [place] [address] * (ABNORMAL) eGFR (06/08/2025 8:53 PM CDT) eGFR 47(L) >=60 mL/min/1. 73 [...] PM CDT 06/08/2025 9:41 PM CDT us iLbia Suarez PROGRAM SUPPORT CLERK LAB BLOOD ORDERABLES Final Re sult [facility] [place] [address] * (ABNORMAL) CBC without differential (06/08/2025 8:53 PM CDT) WBC 10.14(H) 3.80 - 9.90 K/cumm Hgb 7.5(L) 13.0 - 17.5 g/dL [facility] Hct 23.4(L) 38.9 - 50.3 % [facility] Plt 343 150 - 400 K/cumm [facility] MPV 11.0 9.1 - 12.3 fL [facility] RBC 2.77(L) 4.30 - 5.80 M/cumm [facility] MCV 84.5 81.3 - 96.4 fL [facility] MCH 27.1 27.1 - 33.3 pg [facility] MCHC 32.1(L) 32.3 - 35.7 g/dL [facility] RDW CV 16.8(H) 11.1 - 14.9 % [facility] RDW SD 48.9(H) 35.7 - 48.1 fL [facility] NRBC abs 0.00 0.00 - 0.01 K/cumm [facility] Blood 06/08/2025 8:53 PM CDT 06/08/2025 9:41 PM CDT us Dinorah Kahn PROGRAM SUPPORT CLERK LAB BLOOD ORDERABLES Final Result [facility] [place] [address] * Phosphorus (06/08/2025 8:53 PM CDT) [facility] Phosphorus, pl 3.3 2.3 - 4.5 mg/dL Blood 06/08/2025 8:53 PM CDT 06/08/2025 9:41 PM CDT Libia Suarez PROGRAM SUPPORT CLERK LAB BLOOD ORDERABLES Final Re sult Performing Organization Address City/[facility]/[place] [address] * Magnesium (06/08/2025 8:53 PM CDT) [facility] Magnesium 2.2 1.4 - 2.5 mg/dL Blood 06/08/2025 8:53 PM CDT 06/08/2025 9:41 PM CDT Dinorah Kahn PROGRAM SUPPORT CLERK LAB BLOOD ORDERABLES Final Result Performing Organization Address [facility] [place] [address] * (ABNORMAL) Hepatic function panel (06/08/2025 8:53 PM CDT) [facility] Bilirubin, total 0.3 0.1 - 1.2 mg/dL Bilirubin, direct 0.2 0.1 - 0.3 mg/dL [facility] Protein, pl 5.9(L) 6.5 - 8.5 g/dL [facility] Albumin 3.6 3.5 - 5.0 g/dL [facility] Alk phos 305(H) 40 - 130 Units/L [facility] ALT 51 7 - 55 Units/L [facility] AST 23 10 - 50 Units/L [facility] Blood 06/08/2025 8:53 PM CDT 06/08/2025 9:41 PM CDT Libia Suarez PROGRAM SUPPORT CLERK LAB BLOOD ORDERABLES Final Re sult [facility] Department [place] [address] * (ABNORMAL) Basic metabolic panel (06/08/2025 8:53 PM CDT) [facility] Sodium 136 135 - 145 mmol/L Potassium, pl 5.8(H) 3.3 - 4.9 mmol/L [facility] Chloride 106 97 - 110 mmol/L [facility] CO2 21(L) 22 - 32 mmol/L [facility] Anion gap 9 2 - 15 mmol/L [facility] BUN 60(H) 6 - 25 mg/dL [facility] Creatinine 1.64(H) 0.80 - 1.30 mg/dL [facility] Glucose 258(H) 70 - 199 mg/dL [facility] Comment: Interpretive Data Fasting glucose >/= 126 [...] 2022. Calcium 9.2 8.5 - 10.3 mg/dL [facility] Blood 06/08/2025 8:53 PM CDT 06/08/2025 9:41 PM CDT Libia Suarez PROGRAM SUPPORT CLERK LAB BLOOD ORDERABLES Final Re sult Performing Organization Address City/[facility]/ZIP Co de Phone Number [facility] [place] [address] * (ABNORMAL) POCT glucose (06/08/2025 7:57 PM CDT) Glucose, POC 260(H) 70 - 199 mg/dL Blood 06/08/2025 7:57 PM CDT 06/08/2025 7:57 PM CDT Addy Tapia MD LAB POCT ORDERABLES - DE VICE Final Result Performing Organization Address [facility] Co id Phone Number [facility] [place] [address] * (ABNORMAL) POCT glucose (06/08/2025 5:15 PM CDT) Glucose, POC 216(H) 70 - 199 mg/dL Blood 06/08/2025 5:15 PM CDT 06/08/2025 5:15 PM CDT Addy Tapia MD LAB POCT ORDERABLES - DE VICE Final Result Performing Organization Address [facility] Phone Number [facility] [place] [address] * XR Chest PA Lateral 2 Views [...] signed by: Raman Saavedra M.D. Libia Suarez PROGRAM SUPPORT CLERK IMG XR PROCEDURES Final Resul t * POCT glucose (06/08/2025 12:12 PM CDT) Glucose, POC 194 70 - 199 mg/dL Blood 06/08/2025 12:1 2 PM CDT 06/08/2025 12:12 PM CDT Result [facility] Addy Tapia MD LAB POCT ORDERABLES - DE VICE Final Result Performing Organization Address [facility] Co de Phone Number [facility] Department [place] [employer] [place] [address] * POCT glucose (06/08/2025 8:04 AM CDT) Glucose, POC 113 70 - 199 mg/dL Blood 06/08/2025 8:04 AM CDT 06/08/2025 8:04 AM CDT Result [facility] Addy Tapia MD LAB POCT ORDERABLES - DE VICE Final Result Performing Organization Address [facility] Co de Phone Number [facility] [employer] [place] [address] * Tacrolimus level trough (06/08/2025 5:50 AM CDT) Tacrolimus trough 7.3 ng/mL Comment: Interpretive Data Testing performed by liquid chromatography-tandem mass spectrometry. Therapeutic concentrations vary depending on type of transplanted organ and time elapsed since transplant. Typical trough concentrations range from 5-15 ng/mL. This test was developed and its performance characteristics determined by the [facility] consistent with CLIA requirements. This test has not been cleared or approved by the US Food and Drug administration. Current interpretive data last reviewed 2020. Blood 06/08/2025 5:50 AM CDT 06/08/2025 6:33 AM CDT Zev Cowart MD PhD LAB BLOOD ORDERABLES Fi nal Result Performing Organization Address [facility] Co de Phone Number [facility] [place] [address] * Antibody identification (06/07/2025 11:33 PM CDT) [facility] Antibody ID 1 Anti-CD38 Comment:Panreactive -CD38 on reagent RBCs reacting with anti-CD38 therapy. DTT treatment removes cell surface CD38 and allows detection of common clinically significant antibodies except those against [place] antigens. TRANSFUSION 2015;[id number] Blood 06/07/2025 11:3 3 PM CDT 06/07/2025 11:33 PM CDT Dinorah Kahn PROGRAM SUPPORT CLERK LAB BLOOD BANK TEST ORDERAB LES Final Result Performing Organization Address [facility] Co de Phone Number [facility] [place] [address] * (ABNORMAL) eGFR (06/07/2025 9:26 PM CDT) Pathologist [facility] eGFR 50(L) >=60 mL/min/1. 73 m2 Comment: [...] 06/07/2025 9:53 PM CDT us Libia Suarez PROGRAM SUPPORT CLERK LAB BLOOD ORDERABLES Final Re sult [facility] [place] [address] * (ABNORMAL) CBC without differential (06/07/2025 9:26 PM CDT) WBC 11.29(H) 3.80 - 9.90 K/cumm Hgb 7.2(L) 13.0 - 17.5 g/dL [facility] Hct 22.6(L) 38.9 - 50.3 % [facility] Plt 306 150 - 400 K/cumm [facility] MPV 10.9 9.1 - 12.3 fL [facility] RBC 2.65(L) 4.30 - 5.80 M/cumm [facility] MCV 85.3 81.3 - 96.4 fL [facility] MCH 27.2 27.1 - 33.3 pg [facility] MCHC 31.9(L) 32.3 - 35.7 g/dL [facility] RDW CV 16.5(H) 11.1 - 14.9 % [facility] RDW SD 47.3 35.7 - 48.1 fL [facility] NRBC abs 0.00 0.00 - 0.01 K/cumm [facility] Blood 06/07/2025 9:26 PM CDT 06/07/2025 9:53 PM CDT Dinorah Kahn NP LAB BLOOD ORDERABLES Final Result Performing Organization Address [facility] Co de Phone Number [facility] [place] [address] * (ABNORMAL) Type and screen (06/07/2025 9:26 PM CDT) [facility] ABO Rh O Positive Poppy, indirect Positive(A) [facility] Blood 06/07/2025 9:26 PM CDT 06/07/2025 10:14 PM CDT Narrative [facility] - 06/07/2025 11:33 PM CDT Has the patient had Daratumumab or Isatuximab in the past 6 months?->Unknown Dinorah Kahn NP LAB BLOOD BANK TEST ORDERAB LES Final Result Performing Organization Address [facility] Co de Phone Number [facility] Department [place] [address] * Phosphorus (06/07/2025 9:26 PM CDT) [facility] Phosphorus, pl 2.9 2.3 - 4.5 mg/dL Blood 06/07/2025 9:26 PM CDT 06/07/2025 9:53 PM CDT Libia Suarez PROGRAM SUPPORT CLERK LAB BLOOD ORDERABLES Final Re sult Performing Organization Address [facility] Co de Phone Number [facility] [place] [address] * Magnesium (06/07/2025 9:26 PM CDT) [facility] Magnesium 1.8 1.4 - 2.5 mg/dL Blood 06/07/2025 9:26 PM CDT 06/07/2025 9:53 PM CDT Dinorah Kahn PROGRAM SUPPORT CLERK LAB BLOOD ORDERABLES Final Result Performing Organization Address [facility]/ZIP Co de Phone Number [facility] [place] [address] * (ABNORMAL) Hepatic function panel (06/07/2025 9:26 PM CDT) Bilirubin, total 0.3 0.1 - 1.2 mg/dL Bilirubin, direct 0.2 0.1 - 0.3 mg/dL [facility] Protein, pl 5.5(L) 6.5 - 8.5 g/dL [facility] Albumin 3.5 3.5 - 5.0 g/dL [facility] Alk phos 286(H) 40 - 130 Units/L [facility] ALT 53 7 - 55 Units/L [facility] AST 23 10 - 50 Units/L [facility] Blood 06/07/2025 9:26 PM CDT 06/07/2025 9:53 PM CDT Libia Suarez PROGRAM SUPPORT CLERK LAB BLOOD ORDERABLES Final Re sult Performing Organization Address City/[facility] Co de Phone Number [facility] Department [place] [address] * (ABNORMAL) Basic metabolic panel (06/07/2025 9:26 PM CDT) Sodium 140 135 - 145 mmol/L Potassium, pl 5.8(H) 3.3 - 4.9 mmol/L [facility] Chloride 111(H) 97 - 110 mmol/L [facility] CO2 21(L) 22 - 32 mmol/L [facility] Anion gap 8 2 - 15 mmol/L [facility] BUN 63(H) 6 - 25 mg/dL [facility] Creatinine 1.57(H) 0.80 - 1.30 mg/dL [facility] Glucose 166 70 - 199 mg/dL [facility] Comment: Interpretive Data Fasting glucose >/= 126 [...] 2022. Calcium 9.1 8.5 - 10.3 mg/dL [facility] Blood 06/07/2025 9:26 PM CDT 06/07/2025 9:53 PM CDT Libia Suarez NP LAB BLOOD ORDERABLES Final Re sult Performing Organization Address [facility] Co de Phone Number [facility] Department [place] [address] * POCT glucose (06/07/2025 8:24 PM CDT) Glucose, POC 168 70 - 199 mg/dL Blood 06/07/2025 8:24 PM CDT 06/07/2025 8:24 PM CDT Addy Tapia MD LAB POCT ORDERABLES - DE VICE Final Result Performing Organization Address [facility] Co de Phone Number [facility] Department [place] [address] * POCT glucose (06/07/2025 3:59 PM CDT) Glucose, POC 158 70 - 199 mg/dL Blood 06/07/2025 3:59 PM CDT 06/07/2025 3:59 PM CDT Addy Tapia MD LAB POCT ORDERABLES - DE VICE Final Result Performing Organization Address [facility] Co de Phone Number [facility] [place] [address] * (ABNORMAL) POCT glucose (06/07/2025 11:38 AM CDT) Glucose, POC 208(H) 70 - 199 mg/dL Blood 06/07/2025 11:3 8 AM CDT 06/07/2025 11:38 AM CDT Addy Tapia MD LAB POCT ORDERABLES - DE VICE Final Result Performing Organization Address City/[facility] [place] [address] * POCT glucose (06/07/2025 7:52 AM CDT) Glucose, POC 138 70 - 199 mg/dL Blood 06/07/2025 7:52 AM CDT 06/07/2025 7:52 AM CDT Addy Tapia MD LAB POCT ORDERABLES - DE VICE Final Result Performing Organization Address [facility] [place] [address] * Potassium, whole blood (06/07/2025 5:36 AM CDT) Potassium, bld 4.6 3.3 - 4.9 mmol/L Blood 06/07/2025 5:36 AM CDT 06/07/2025 6:01 AM CDT Bar Gamble MD LAB BLOOD ORDERABLES Final R esult Performing Organization Address City/[facility]/ZIP Co de Phone Number [facility] [place] [address] * Tacrolimus level trough (06/07/2025 5:36 AM CDT) [facility] Tacrolimus trough 6.6 ng/mL Comment: Interpretive Data Testing performed by liquid chromatography-tandem mass spectrometry. Therapeutic concentrations vary depending on type of transplanted organ and time elapsed since transplant. Typical trough concentrations range from 5-15 ng/mL. This test was developed and its performance characteristics determined by the [facility] consistent with CLIA requirements. This test has not been cleared or approved by the US Food and Drug administration. Current interpretive data last reviewed 2020. Blood 06/07/2025 5:36 AM CDT 06/07/2025 6:18 AM CDT Zev Cowart MD PhD LAB BLOOD ORDERABLES Fi nal Result Performing Organization Address [facility] Co de Phone Number [facility] Department [place] [address] * (ABNORMAL) Potassium, whole blood (06/06/2025 9:52 PM CDT) [facility] Potassium, bld 5.1(H) 3.3 - 4.9 mmol/L Blood 06/06/2025 9:52 PM CDT 06/06/2025 10:03 PM CDT us Bar Gamble MD LAB BLOOD ORDERABLES Final R esult Performing Organization Address [facility]/ZIP Co de Phone Number [facility] Department [place] [address] * (ABNORMAL) CBC without differential (06/06/2025 9:52 PM CDT) [facility] WBC 10.35(H) 3.80 - 9.90 K/cumm Hgb 7.6(L) 13.0 - 17.5 g/dL [facility] Hct 23.7(L) 38.9 - 50.3 % [facility] Plt 306 150 - 400 K/cumm [facility] MPV 11.0 9.1 - 12.3 fL [facility] RBC 2.83(L) 4.30 - 5.80 M/cumm [facility] MCV 83.7 81.3 - 96.4 fL [facility] MCH 26.9(L) 27.1 - 33.3 pg [facility] MCHC 32.1(L) 32.3 - 35.7 g/dL [facility] RDW CV 16.6(H) 11.1 - 14.9 % [facility] RDW SD 47.2 35.7 - 48.1 fL [facility] NRBC abs 0.00 0.00 - 0.01 K/cumm [facility] Blood 06/06/2025 9:52 PM CDT 06/06/2025 10:05 PM CDT us Chelsy Mckenzie NP LAB BLOOD ORDERABLES Final Resul t Performing Organization Address City/[facility]/ZIP Co de Phone Number [facility] [place] [address] * (ABNORMAL) POCT glucose (06/06/2025 8:10 PM CDT) Pathologist [facility] Glucose, POC 239(H) 70 - 199 mg/dL Blood 06/06/2025 8:10 PM CDT 06/06/2025 8:10 PM CDT Addy Tapia MD LAB POCT ORDERABLES - DE VICE Final Result [facility] [place] [address] * G6PD qualitative with reflex to quantitative (06/06/2025 8:02 PM CDT) [facility] G6PD Normal Normal Comment: Interp data: G6PD activity should be interpreted in the context of a patient's hematocrit. Hematocrit < 20% may lead to a falsely deficient result, while hematocrit > 50% may lead to a falsely normal result. Current interpretive data was last revised on 2020. Blood 06/06/2025 8:02 PM CDT 06/06/2025 8:46 PM CDT Farida Flores PROGRAM SUPPORT CLERK LAB BLOOD ORDERABLES Final R esult Performing Organization Address [facility]/ZIP Co de Phone Number [facility] [place] [address] * (ABNORMAL) eGFR (06/06/2025 8:02 PM CDT) [...] CDT 06/06/2025 8:46 PM CDT Libia Suarez PROGRAM SUPPORT CLERK LAB BLOOD ORDERABLES Final Re sult Performing Organization Address City/[facility]/ZIP Co de Phone Number [facility] MARIA [facility] [place] [address] * Immunoglobulin free light chains (06/06/2025 8:02 PM CDT) Pathologist [facility] [place]/Lambda ratio [facility] 0.35 0.26 - 1.65 Comment: Interpretive Data The Binding Site FreeLite assay procedure was used. Results from different manufacturers or methods may not be comparable. Serial testing should be performed using the same methods and instrumentation. Current Interpretive Data was last revised on 2024. [place] free light chain [facility] 0.39 0.33 - 1.94 mg/dL [facility] Comment: Interpretive Data The Binding Site FreeLite assay procedure was used. Results from different manufacturers or methods may not be comparable. Serial testing should be performed using the same methods and instrumentation. Current Interpretive Data was last revised on 2024. Lambda free light chain [facility] 1.13 0.57 - 2.63 mg/dL [facility] Comment: Interpretive Data The Binding Site FreeLite assay procedure was used. Results from different manufacturers or methods may not be comparable. Serial testing should be performed using the same methods and instrumentation. Current Interpretive Data was last revised on 2024. Blood 06/06/2025 8:02 PM CDT 06/06/2025 8:46 PM CDT us Farida Flores NP LAB BLOOD ORDERABLES Final R esult [facility] [place] [address] * (ABNORMAL) CBC without differential (06/06/2025 8:02 PM CDT) WBC 10.24(H) 3.80 - 9.90 K/cumm Hgb 7.1(L) 13.0 - 17.5 g/dL [facility] Hct 21.5(L) 38.9 - 50.3 % [facility] Plt 300 150 - 400 K/cumm [facility] MPV 10.9 9.1 - 12.3 fL [facility] RBC 2.58(L) 4.30 - 5.80 M/cumm [facility] MCV 83.3 81.3 - 96.4 fL [facility] MCH 27.5 27.1 - 33.3 pg [facility] MCHC 33.0 32.3 - 35.7 g/dL [facility] RDW CV 16.6(H) 11.1 - 14.9 % [facility] RDW SD 47.5 35.7 - 48.1 fL [facility] NRBC abs 0.00 0.00 - 0.01 K/cumm [facility] Blood 06/06/2025 8:02 PM CDT 06/06/2025 8:46 PM CDT Dinorah Kahn PROGRAM SUPPORT CLERK LAB BLOOD ORDERABLES Final Result [facility] [place] [address] * Phosphorus (06/06/2025 8:02 PM CDT) [facility] Phosphorus, pl 3.4 2.3 - 4.5 mg/dL Blood 06/06/2025 8:02 PM CDT 06/06/2025 8:46 PM CDT Libia Suarez PROGRAM SUPPORT CLERK LAB BLOOD ORDERABLES Final Re sult Performing Organization Address City/[facility] Co de Phone Number [facility] [place] [address] * Magnesium (06/06/2025 8:02 PM CDT) [facility] Magnesium 1.8 1.4 - 2.5 mg/dL Blood 06/06/2025 8:02 PM CDT 06/06/2025 8:46 PM CDT Dinorah Kahn NP LAB BLOOD ORDERABLES Final Result Performing Organization Address City/[facility] Co de Phone Number [facility] [place] [address] * (ABNORMAL) Hepatic function panel (06/06/2025 8:02 PM CDT) [facility] Bilirubin, total 0.3 0.1 - 1.2 mg/dL Bilirubin, direct <0.2 0.1 - 0.3 mg/dL [facility] Protein, pl 5.2(L) 6.5 - 8.5 g/dL [facility] Albumin 3.3(L) 3.5 - 5.0 g/dL [facility] Alk phos 282(H) 40 - 130 Units/L [facility] ALT 53 7 - 55 Units/L [facility] AST 19 10 - 50 Units/L [facility] Blood 06/06/2025 8:02 PM CDT 06/06/2025 8:46 PM CDT Libia Suarez PROGRAM SUPPORT CLERK LAB BLOOD ORDERABLES Final Re sult [facility] [place] [address] * (ABNORMAL) Basic metabolic panel (06/06/2025 8:02 PM CDT) [facility] Sodium 136 135 - 145 mmol/L Potassium, pl 5.5(H) 3.3 - 4.9 mmol/L [facility] Chloride 106 97 - 110 mmol/L [facility] CO2 22 22 - 32 mmol/L [facility] Anion gap 8 2 - 15 mmol/L [facility] BUN 70(H) 6 - 25 mg/dL [facility] Creatinine 1.73(H) 0.80 - 1.30 mg/dL [facility] Glucose 229(H) 70 - 199 mg/dL [facility] Comment: Interpretive Data Fasting glucose >/= 126 [...] 2022. Calcium 8.7 8.5 - 10.3 mg/dL [facility] Blood 06/06/2025 8:02 PM CDT 06/06/2025 8:46 PM CDT Libia Suarez NP LAB BLOOD ORDERABLES Final Re sult Performing Organization Address [facility]/ZIP Co de Phone Number [facility] [place] [employer] [place] [address] * (ABNORMAL) POCT glucose (06/06/2025 4:10 PM CDT) Glucose, POC 200(H) 70 - 199 mg/dL Blood 06/06/2025 4:10 PM CDT 06/06/2025 4:10 PM CDT Addy Tapia MD LAB POCT ORDERABLES - DE VICE Final Result Performing Organization Address [facility] de Phone Number [facility] [place] [employer] [place] [address] * (ABNORMAL) POCT glucose (06/06/2025 12:12 PM CDT) Glucose, POC 211(H) 70 - 199 mg/dL Blood 06/06/2025 12:1 2 PM CDT 06/06/2025 12:12 PM CDT Addy Tapia MD LAB POCT ORDERABLES - DE VICE Final Result Performing Organization Address [facility] Co de Phone Number [facility] [place] [address] * POCT glucose (06/06/2025 7:59 AM CDT) Glucose, POC 143 70 - 199 mg/dL Blood 06/06/2025 7:59 AM CDT 06/06/2025 7:59 AM CDT Addy Tapia MD LAB POCT ORDERABLES - DE VICE Final Result Performing Organization Address [facility] Co de Phone Number [facility] Department [place] [address] * Potassium, whole blood (06/06/2025 5:07 AM CDT) Potassium, bld 4.5 3.3 - 4.9 mmol/L Blood 06/06/2025 5:07 AM CDT 06/06/2025 5:24 AM CDT Bar Gamble MD LAB BLOOD ORDERABLES Final R esult Performing Organization Address [facility] Phone Number [facility] Department [place] [address] * Tacrolimus level trough (06/06/2025 5:07 AM CDT) Tacrolimus trough 7.4 ng/mL Comment: Interpretive Data Testing performed by liquid chromatography-tandem mass spectrometry. Therapeutic concentrations vary depending on type of transplanted organ and time elapsed since transplant. Typical trough concentrations range from 5-15 ng/mL. This test was developed and its performance characteristics determined by the [facility] consistent with CLIA requirements. This test has not been cleared or approved by the US Food and Drug administration. Current interpretive data last reviewed 2020. Blood 06/06/2025 5:07 AM CDT 06/06/2025 5:31 AM CDT us Zev Cowart MD PhD LAB BLOOD ORDERABLES Fi nal Result Performing Organization Address [facility] Co de Phone Number [facility] [place] [address] * (ABNORMAL) Potassium, whole blood (06/05/2025 10:09 PM CDT) Potassium, bld 5.2(H) 3.3 - 4.9 mmol/L Blood 06/05/2025 10:0 9 PM CDT 06/05/2025 10:22 PM CDT us Bar Gamble MD LAB BLOOD ORDERABLES Final R esult Performing Organization Address [facility] Co de Phone Number DULCE MARIA [facility] [place] [address] * (ABNORMAL) eGFR (06/05/2025 10:02 PM CDT) [...] 2 PM CDT 06/05/2025 10:29 PM CDT us Libia Suarez NP LAB BLOOD ORDERABLES Final Re sult Performing Organization Address City/[facility]/ZIP Co de Phone Number [facility] Department [place] [address] * (ABNORMAL) CBC without differential (06/05/2025 10:02 PM CDT) WBC 13.52(H) 3.80 - 9.90 K/cumm Hgb 7.7(L) 13.0 - 17.5 g/dL [facility] Hct 23.8(L) 38.9 - 50.3 % [facility] Plt 319 150 - 400 K/cumm [facility] MPV 10.8 9.1 - 12.3 fL [facility] RBC 2.87(L) 4.30 - 5.80 M/cumm [facility] MCV 82.9 81.3 - 96.4 fL [facility] MCH 26.8(L) 27.1 - 33.3 pg [facility] MCHC 32.4 32.3 - 35.7 g/dL [facility] RDW CV 16.4(H) 11.1 - 14.9 % [facility] RDW SD 46.3 35.7 - 48.1 fL [facility] NRBC abs 0.00 0.00 - 0.01 K/cumm [facility] Blood 06/05/2025 10:0 2 PM CDT 06/05/2025 10:29 PM CDT Dinorah Kahn PROGRAM SUPPORT CLERK LAB BLOOD ORDERABLES Final Result Performing Organization Address City/[facility]/ZIP Co de Phone Number [facility] [place] [address] * Phosphorus (06/05/2025 10:02 PM CDT) Pathologist [facility] Phosphorus, pl 3.4 2.3 - 4.5 mg/dL Blood 06/05/2025 10:0 2 PM CDT 06/05/2025 10:29 PM CDT Libia Suarez PROGRAM SUPPORT CLERK LAB BLOOD ORDERABLES Final Re sult [facility] Department [place] [address] * Magnesium (06/05/2025 10:02 PM CDT) [facility] Magnesium 2.0 1.4 - 2.5 mg/dL Blood 06/05/2025 10:0 2 PM CDT 06/05/2025 10:29 PM CDT Dinorah Kahn PROGRAM SUPPORT CLERK LAB BLOOD ORDERABLES Final Result Performing Organization Address [facility]/[place] [address] * (ABNORMAL) Hepatic function panel (06/05/2025 10:02 PM CDT) [facility] Bilirubin, total 0.3 0.1 - 1.2 mg/dL Bilirubin, direct 0.2 0.1 - 0.3 mg/dL [facility] Protein, pl 5.5(L) 6.5 - 8.5 g/dL [facility] Albumin 3.4(L) 3.5 - 5.0 g/dL [facility] Alk phos 317(H) 40 - 130 Units/L [facility] ALT 60(H) 7 - 55 Units/L [facility] AST 25 10 - 50 Units/L [facility] Blood 06/05/2025 10:0 2 PM CDT 06/05/2025 10:29 PM CDT Libia Suarez PROGRAM SUPPORT CLERK LAB BLOOD ORDERABLES Final Re sult Performing Organization Address City/[facility]/[place] [address] * (ABNORMAL) Basic metabolic panel (06/05/2025 10:02 PM CDT) [facility] Sodium 135 135 - 145 mmol/L Potassium, pl 5.5(H) 3.3 - 4.9 mmol/L [facility] Chloride 105 97 - 110 mmol/L [facility] CO2 21(L) 22 - 32 mmol/L [facility] Anion gap 9 2 - 15 mmol/L [facility] BUN 70(H) 6 - 25 mg/dL [facility] Creatinine 1.65(H) 0.80 - 1.30 mg/dL [facility] Glucose 242(H) 70 - 199 mg/dL [facility] Comment: Interpretive Data Fasting glucose >/= 126 [...] 2022. Calcium 8.7 8.5 - 10.3 mg/dL [facility] Blood 06/05/2025 10:0 2 PM CDT 06/05/2025 10:29 PM CDT us Libia Suarez PROGRAM SUPPORT CLERK LAB BLOOD ORDERABLES Final Re sult [facility] Department [place] [address] * (ABNORMAL) POCT glucose (06/05/2025 7:54 PM CDT) [facility] Signature Glucose, POC 237(H) 70 - 199 mg/dL Blood 06/05/2025 7:54 PM CDT 06/05/2025 7:54 PM CDT us Addy Tapia MD LAB POCT ORDERABLES - DE VICE Final Result [facility] [place] [address] * POCT glucose (06/05/2025 4:10 PM CDT) Glucose, POC 190 70 - 199 mg/dL Blood 06/05/2025 4:10 PM CDT 06/05/2025 4:10 PM CDT us Addy Tapia MD LAB POCT ORDERABLES - DE VICE Final Result DULCE MARIA [facility] [place] [address] * XR Chest 1 View (06/05/2025 3:09 [...] by: Kristian Hagan M.D. us Sheila Pollard PROGRAM SUPPORT CLERK IMG XR PROCEDURES Final R esult * POCT glucose (06/05/2025 1:33 PM CDT) Pathologist [facility] Glucose, POC 138 70 - 199 mg/dL Blood 06/05/2025 1:33 PM CDT 06/05/2025 1:33 PM CDT us Addy Tapia MD LAB POCT ORDERABLES - DE VICE Final Result D[facility] MARIA [facility] Department [place] [address] * TRANSTHORACIC ECHO (TTE) LIMITED/FOLLOW UP W LTD DOPPLER/CF WO CONTRAST (06/05/2025 12:57 PM CDT) [facility] Estimated EF 70-75 % CONS SCIMAGE EF Mod BP 63 % CONS SCIMAGE Anatomical Region Laterality Modality Ultrasound 06/05/2025 12:2 5 PM CDT Narrative 06/05/2025 2:30 PM CDT [facility] [place] [address] Transthoracic Echocardiographic Report Patient Name: GOSIA ZUNIGA W : 1965 (60y 1m) Gender: M Study Date: 06/05/2025 12:25:00 PM Ht(Inch): 72 Wt(Lb): 175.93 BSA: 2.01 Professor Of Psychology: HSAQ Terry Location: [id number] Order Provider: LIBIA SUAREZ Heart Rate: 88 [...] Procedure Note Pranav Moura MD - 06/05/2025 [facility] [place] [address] Transthoracic Echocardiographic Report Patient Name: GOSIA ZUNIGA W : 1965 (60y 1m) Gender: M Study Date: 06/05/2025 12:25:00 PM Ht(Inch): 72 Wt(Lb): 175.93 BSA: 2.01 Professor Of Psychology: SHAQ Terry Location: [id number] Order Provider:LIBIA SUAREZ Heart Rate: 88 BMI: [...] M.D. 06/05/2025 2:29:56 PM CDT Libia Suarez NP CV ECHO PROCEDURES Final Resu lt * POCT glucose (06/05/2025 7:51 AM CDT) Glucose, POC 122 70 - 199 mg/dL Blood 06/05/2025 7:51 AM CDT 06/05/2025 7:51 AM CDT Addy Tapia MD LAB POCT ORDERABLES - DE VICE Final Result DUL[facility] MARIA [facility] [place] [address] * Potassium, whole blood (06/05/2025 4:39 AM CDT) Potassium, bld 4.6 3.3 - 4.9 mmol/L Blood 06/05/2025 4:39 AM CDT 06/05/2025 4:58 AM CDT us Bar Gamble MD LAB BLOOD ORDERABLES Final R esult Performing Organization Address [facility] Co de Phone Number [facility] Department [place] [address] * Tacrolimus level trough (06/05/2025 4:39 AM CDT) Pathologist [facility] Tacrolimus trough 10.3 ng/mL Comment: Interpretive Data Testing performed by liquid chromatography-tandem mass spectrometry. Therapeutic concentrations vary depending on type of transplanted organ and time elapsed since transplant. Typical trough concentrations range from 5-15 ng/mL. This test was developed and its performance characteristics determined by the [facility] consistent with CLIA requirements. This test has not been cleared or approved by the US Food and Drug administration. Current interpretive data last reviewed 2020. Blood 06/05/2025 4:39 AM CDT 06/05/2025 4:58 AM CDT us Zev Cowart MD PhD LAB BLOOD ORDERABLES Fi nal Result Performing Organization Address [facility] Co de Phone Number [facility] Department [place] [address] * (ABNORMAL) Potassium, whole blood (06/04/2025 9:24 PM CDT) [facility] Potassium, bld 6.1(H) 3.3 - 4.9 mmol/L Blood 06/04/2025 9:24 PM CDT 06/04/2025 9:38 PM CDT us Dinorah Kahn PROGRAM SUPPORT CLERK LAB BLOOD ORDERABLES Final Result Performing Organization Address [facility] Co de Phone Number [facility] [place] [address] * (ABNORMAL) POCT glucose (06/04/2025 8:57 PM CDT) [facility] Glucose, POC 262(H) 70 - 199 mg/dL Blood 06/04/2025 8:57 PM CDT 06/04/2025 8:57 PM CDT Addy Tapia MD LAB POCT ORDERABLES - DE VICE Final Result Performing Organization Address City/[facility] Co de Phone Number [facility] Department [place] [address] * Antibody identification (06/04/2025 8:01 PM CDT) [facility] Antibody ID 1 Anti-CD38 Comment:Panreactive -CD38 on reagent RBCs reacting with anti-CD38 therapy. DTT treatment removes cell surface CD38 and allows detection of common clinically significant antibodies except those against Dilma antigens. TRANSFUSION 2015;55;[id number] Blood 06/04/2025 8:01 PM CDT 06/04/2025 8:01 PM CDT Dinorah Kahn NP LAB BLOOD BANK TEST ORDERAB LES Final Result Performing Organization Address [facility] Co de Phone Number DUL[facility] MAR[facility] Department [place] [address] * (ABNORMAL) eGFR (06/04/2025 6:51 PM CDT) [facility] eGFR 43(L) >=60 mL/min/1. 73 m2 [...] ORDERABLES Final Re sult Performing Organization Address City/[facility] Co de Phone Number [facility] [employer] [place] [place] [address] * Critical Result Callback Chemistry (06/04/2025 6:51 PM CDT) Date Notified [id number] Time Notified 1952 DULCE MARIA [facility] TestName Potassium Plas DULCE MARIA [facility] Called/Read Back Libia العراقي [facility] Credentials RN DULCE MARIA [facility] Called By GERARDO العراقي [facility] Blood 06/04/2025 6:51 PM CDT 06/04/2025 7:13 PM CDT Libia Suarez NP LAB BLOOD ORDERABLES Final Re sult Performing Organization Address City/[facility] Co de Phone Number [facility] [place] [address] * (ABNORMAL) CBC without differential (06/04/2025 6:51 PM CDT) WBC 16.62(H) 3.80 - 9.90 K/cumm Hgb 8.1(L) 13.0 - 17.5 g/dL [facility] Hct 24.8(L) 38.9 - 50.3 % [facility] Plt 297 150 - 400 K/cumm [facility] MPV 10.8 9.1 - 12.3 fL [facility] RBC 2.97(L) 4.30 - 5.80 M/cumm [facility] MCV 83.5 81.3 - 96.4 fL [facility] MCH 27.3 27.1 - 33.3 pg [facility] MCHC 32.7 32.3 - 35.7 g/dL [facility] RDW CV 16.1(H) 11.1 - 14.9 % [facility] RDW SD 46.1 35.7 - 48.1 fL [facility] NRBC abs 0.00 0.00 - 0.01 K/cumm [facility] Blood 06/04/2025 6:51 PM CDT 06/04/2025 7:13 PM CDT Dinorah Kahn NP LAB BLOOD ORDERABLES Final Result Performing Organization Address [facility]/ZIP Co de Phone Number [facility] [place] [address] * (ABNORMAL) Type and screen (06/04/2025 6:51 PM CDT) ABO Rh O Positive Poppy, indirect Positive(A) [facility] Blood 06/04/2025 6:51 PM CDT 06/04/2025 7:05 PM CDT Narrative [facility] - 06/04/2025 8:02 PM CDT Has the patient had Daratumumab or Isatuximab in the past 6 months?->Unknown Dinorah Kahn NP LAB BLOOD BANK TEST ORDERAB LES Final Result [facility] [place] [address] * Phosphorus (06/04/2025 6:51 PM CDT) Phosphorus, pl 3.2 2.3 - 4.5 mg/dL Blood 06/04/2025 6:51 PM CDT 06/04/2025 7:13 PM CDT Libia Suarez PROGRAM SUPPORT CLERK LAB BLOOD ORDERABLES Final Re sult Performing Organization Address City/[facility]/ZIP Co de Phone Number [facility] [place] [address] * Magnesium (06/04/2025 6:51 PM CDT) Pathologist [facility] Magnesium 2.2 1.4 - 2.5 mg/dL Blood 06/04/2025 6:51 PM CDT 06/04/2025 7:13 PM CDT Dinorah Kahn PROGRAM SUPPORT CLERK LAB BLOOD ORDERABLES Final Result Performing Organization Address [facility] Co de Phone Number [facility] [place] [address] * (ABNORMAL) Hepatic function panel (06/04/2025 6:51 PM CDT) Bilirubin, total 0.3 0.1 - 1.2 mg/dL Bilirubin, direct <0.2 0.1 - 0.3 mg/dL [facility] Protein, pl 5.6(L) 6.5 - 8.5 g/dL [facility] Albumin 3.5 3.5 - 5.0 g/dL [facility] Alk phos 297(H) 40 - 130 Units/L [facility] ALT 67(H) 7 - 55 Units/L [facility] AST 28 10 - 50 Units/L [facility] Blood 06/04/2025 6:51 PM CDT 06/04/2025 7:13 PM CDT Libia Suarez PROGRAM SUPPORT CLERK LAB BLOOD ORDERABLES Final Re sult Performing Organization Address [facility] Co de Phone Number [facility] [place] [address] * (ABNORMAL) Basic metabolic panel (06/04/2025 6:51 PM CDT) Sodium 138 135 - 145 mmol/L Potassium, pl 6.4(C) 3.3 - 4.9 mmol/L [facility] Chloride 106 97 - 110 mmol/L [facility] CO2 21(L) 22 - 32 mmol/L [facility] Anion gap 11 2 - 15 mmol/L [facility] BUN 66(H) 6 - 25 mg/dL [facility] Creatinine 1.76(H) 0.80 - 1.30 mg/dL [facility] Glucose 279(H) 70 - 199 mg/dL [facility] Comment: Interpretive Data Fasting glucose >/= 126 [...] 2022. Calcium 8.9 8.5 - 10.3 mg/dL [facility] Blood 06/04/2025 6:51 PM CDT 06/04/2025 7:13 PM CDT Libia Suarez NP LAB BLOOD ORDERABLES Final Re sult Performing Organization Address City/State/[facility] Co de Phone Number [facility] [place] [address] * POCT glucose (06/04/2025 4:16 PM CDT) Glucose, POC 195 70 - 199 mg/dL Blood 06/04/2025 4:16 PM CDT 06/04/2025 4:16 PM CDT Addy Tapia MD LAB POCT ORDERABLES - DE VICE Final Result Performing Organization Address City/[facility] Co de Phone Number [facility] [place] [address] * (ABNORMAL) POCT glucose (06/04/2025 12:15 PM CDT) Glucose, POC 252(H) 70 - 199 mg/dL Blood 06/04/2025 12:1 5 PM CDT 06/04/2025 12:15 PM CDT Addy Tapia MD LAB POCT ORDERABLES - DE VICE Final Result Performing Organization Address [facility] Co de Phone Number [facility] [place] [address] * POCT glucose (06/04/2025 7:37 AM CDT) Glucose, POC 111 70 - 199 mg/dL Blood 06/04/2025 7:37 AM CDT 06/04/2025 7:37 AM CDT Addy Tapia MD LAB POCT ORDERABLES - DE VICE Final Result Performing Organization Address [facility] Co de Phone Number [facility] [place] [address] * (ABNORMAL) Potassium, whole blood (06/04/2025 5:16 AM CDT) Potassium, bld 5.1(H) 3.3 - 4.9 mmol/L Blood 06/04/2025 5:16 AM CDT 06/04/2025 5:26 AM CDT Bar Gamble MD LAB BLOOD ORDERABLES Final R esult Performing Organization Address [facility] Co de Phone Number [facility] [place] [address] * Tacrolimus level trough (06/04/2025 5:16 AM CDT) [facility] Tacrolimus trough 8.8 ng/mL Comment: Interpretive Data Testing performed by liquid chromatography-tandem mass spectrometry. Therapeutic concentrations vary depending on type of transplanted organ and time elapsed since transplant. Typical trough concentrations range from 5-15 ng/mL. This test was developed and its performance characteristics determined by the [facility] consistent with CLIA requirements. This test has not been cleared or approved by the [place] Food and Drug administration. Current interpretive data last reviewed 2020. Blood 06/04/2025 5:16 AM CDT 06/04/2025 5:32 AM CDT Zev Cowart MD PhD LAB BLOOD ORDERABLES Fi nal Result Performing Organization Address [facility] Co de Phone Number [facility] [place] [address] * (ABNORMAL) Potassium, whole blood (06/03/2025 10:35 PM CDT) [facility] Potassium, bld 5.4(H) 3.3 - 4.9 mmol/L Blood 06/03/2025 10:3 5 PM CDT 06/03/2025 10:41 PM CDT Dinorah Kahn PROGRAM SUPPORT CLERK LAB BLOOD ORDERABLES Final Result Performing Organization Address City/[facility] Co de Phone Number [facility] [place] [address] * (ABNORMAL) eGFR (06/03/2025 8:29 PM CDT) [facility] eGFR 43(L) >=60 mL/min/1. 73 m2 [...] 8:29 PM CDT 06/03/2025 8:49 PM CDT us Libia Suarez PROGRAM SUPPORT CLERK LAB BLOOD ORDERABLES Final Re sult [facility] [place] [address] * (ABNORMAL) CBC without differential (06/03/2025 8:29 PM CDT) WBC 12.46(H) 3.80 - 9.90 K/cumm Hgb 7.8(L) 13.0 - 17.5 g/dL [facility] Hct 23.9(L) 38.9 - 50.3 % [facility] Plt 254 150 - 400 K/cumm [facility] MPV 10.8 9.1 - 12.3 fL [facility] RBC 2.85(L) 4.30 - 5.80 M/cumm [facility] MCV 83.9 81.3 - 96.4 fL [facility] MCH 27.4 27.1 - 33.3 pg [facility] MCHC 32.6 32.3 - 35.7 g/dL [facility] RDW CV 15.8(H) 11.1 - 14.9 % [facility] RDW SD 44.9 35.7 - 48.1 fL [facility] NRBC abs 0.00 0.00 - 0.01 K/cumm [facility] Blood 06/03/2025 8:29 PM CDT 06/03/2025 8:48 PM CDT Dinorah Kahn PROGRAM SUPPORT CLERK LAB BLOOD ORDERABLES Final Result Performing Organization Address [facility] de Phone Number [facility] [place] [address] * Phosphorus (06/03/2025 8:29 PM CDT) Phosphorus, pl 3.3 2.3 - 4.5 mg/dL Blood 06/03/2025 8:29 PM CDT 06/03/2025 8:49 PM CDT Libia Suarez PROGRAM SUPPORT CLERK LAB BLOOD ORDERABLES Final Re sult Performing Organization Address [facility] de Phone Number [facility] Department [place] [address] * Magnesium (06/03/2025 8:29 PM CDT) Magnesium 2.5 1.4 - 2.5 mg/dL Blood 06/03/2025 8:29 PM CDT 06/03/2025 8:49 PM CDT Dinorah Kahn PROGRAM SUPPORT CLERK LAB BLOOD ORDERABLES Final Result Performing Organization Address [facility] [place] [address] * (ABNORMAL) Hepatic function panel (06/03/2025 8:29 PM CDT) Bilirubin, total 0.3 0.1 - 1.2 mg/dL Bilirubin, direct <0.2 0.1 - 0.3 mg/dL [facility] Comment:Repeated and Verifie d Protein, pl 5.6(L) 6.5 - 8.5 g/dL [facility] Albumin 3.5 3.5 - 5.0 g/dL [facility] Alk phos 268(H) 40 - 130 Units/L [facility] ALT 74(H) 7 - 55 Units/L [facility] AST 32 10 - 50 Units/L [facility] Blood 06/03/2025 8:29 PM CDT 06/03/2025 8:49 PM CDT Libia Suarez PROGRAM SUPPORT CLERK LAB BLOOD ORDERABLES Final Re sult [facility] [place] [address] * (ABNORMAL) Basic metabolic panel (06/03/2025 8:29 PM CDT) Sodium 135 135 - 145 mmol/L Potassium, pl 5.9(H) 3.3 - 4.9 mmol/L [facility] Chloride 105 97 - 110 mmol/L [facility] CO2 23 22 - 32 mmol/L [facility] Anion gap 7 2 - 15 mmol/L [facility] BUN 68(H) 6 - 25 mg/dL [facility] Creatinine 1.79(H) 0.80 - 1.30 mg/dL [facility] Glucose 254(H) 70 - 199 mg/dL [facility] Comment: Interpretive Data Fasting glucose >/= 126 [...] 2022. Calcium 9.1 8.5 - 10.3 mg/dL [facility] Blood 06/03/2025 8:29 PM CDT 06/03/2025 8:49 PM CDT Libia Suarez NP LAB BLOOD ORDERABLES Final Re sult Performing Organization Address [facility] Co de Phone Number [facility] [place] [address] * (ABNORMAL) POCT glucose (06/03/2025 7:49 PM CDT) Glucose, POC 258(H) 70 - 199 mg/dL Blood 06/03/2025 7:49 PM CDT 06/03/2025 7:49 PM CDT Addy Tapia MD LAB POCT ORDERABLES - DE VICE Final Result Performing Organization Address [facility] Phone Number [facility] [place] [address] * (ABNORMAL) POCT glucose (06/03/2025 5:09 PM CDT) Glucose, POC 264(H) 70 - 199 mg/dL Blood 06/03/2025 5:09 PM CDT 06/03/2025 5:09 PM CDT Addy Tapia MD LAB POCT ORDERABLES - DE VICE Final Result Performing Organization Address [facility] Co de Phone Number [facility] [place] [address] * POCT glucose (06/03/2025 10:46 AM CDT) Glucose, POC 160 70 - 199 mg/dL Blood 06/03/2025 10:4 6 AM CDT 06/03/2025 10:46 AM CDT Addy Tapia MD LAB POCT ORDERABLES - DE VICE Final Result DULCE MARIA [facility] [place] [address] * TRANSTHORACIC ECHO (TTE) LIMITED/FOLLOW UP W LTD DOPPLER/CF WO CONTRAST (06/03/2025 10:11 AM CDT) Anatomical Region Laterality Modality Ultrasound 06/03/2025 9:06 AM CDT Narrative 06/03/2025 11:27 AM CDT [facility] [place] [address] Transthoracic Echocardiographic Report Patient Name: GOSIA ZUNIGA W : 1965 (60y ) Gender: M Study Date: 06/03/2025 09:06:07 AM Ht(Inch): 72 Wt(Lb): 175.05 BSA: 2.01 Professor Of Psychology: Gabby Joshua RDCS Location: 5518 Order Provider: [...] Note Dmitry Araya MD PhD - 06/03/2025 [facility] [place] [address] Transthoracic Echocardiographic Report Patient Name: GOSIA ZUNIGA W : 1965 (60y ) Gender: M Study Date: 06/03/2025 09:06:07 AM Ht(Inch): 72 Wt(Lb): 175.05 BSA: 2.01 Professor Of Psychology: Gabby Joshua RDCS Location: 5518 Order Provider:RODNEY AMOS Heart Rate: 95 BMI: [...] POCT ORDERABLES - DE VICE Final Result [facility] [place] [address] * ENDOMYOCARDIAL BIOPSY (06/03/2025 9:12 AM CDT) [...] clinical evaluation. Narrative 06/03/2025 9:32 AM CDT [facility] SUPERVISOR REPORT PROCEDURE: Endomyocardial biopsy CLINICAL HISTORY: [...] micropuncture and modified Seldinger technique a 7 Pakistani sheath was inserted into the right jugular vein. 5. Endomyocardial biopsy was performed using a 7 Pakistani bioptome. 4 endomyocardial biopsy specimens were obtained, [...] atrial pressure: 8 mmHg DIAGNOSTIC us Chelsy Mckenzie PROGRAM SUPPORT CLERK CV CARDIAC CATH PROCEDURES Final Result * Surgical pathology (06/03/2025 7:58 AM CDT) Tissue (Heart, Biopsy) 06/03/2025 7:58 AM CDT Narrative PATHOLOGY [facility] - 06/03/2025 3:47 PM CDT EPIC results best viewed via link to PDF [facility] Velma Mat[facility] Surgical [place] [address] Note to Patients: This report may contain [...] Gender: M : 1965 (Age: 60) Address: [address] [place] [id number] Hospital #: [id number] Taken:06/03/2025 Received:06/03/2025 Reported: 06/03/2025 Patient Type: [facility] Inpatient Service: Cardiology Location: [address] Physician(s): Rodney Amos M.D. Yaakov Lawrence M.D., PHD Anuel Vargas D.O. Diagnosis: A. Heart, allograft, endomyocardial biopsy: - No evidence of acute cellular rejection, ISHLT [id number] - No histologic features suggestive of antibody [...] Pathology and Flow Cytometry Departments at [facility] as part of an ongoing supplier quality engineer program and in compliance with federally mandated [...] Pathology and Flow Cytometry Departments of [facility]. It has not been cleared or approved by the U. S. Food and Drug Administration. IMAGES AND SCANNED DOCUMENTS, IF INCLUDED, ONLY VIEWABLE IN PDF VERSION OF REPORT us Rodney Amos MD PhD LAB PATHOLOGY ORDERA BLES Final Result PATHOLOGY [facility] 3rd Floor [place], [place] [phone] * POCT glucose (06/03/2025 6:59 AM CDT) Glucose, POC 146 70 - 199 mg/dL Blood 06/03/2025 6:59 AM CDT 06/03/2025 6:59 AM CDT us Addy Tapia MD LAB POCT ORDERABLES - DE VICE Final Result [facility] Department [place] [address] * Potassium, whole blood (06/03/2025 6:26 AM CDT) Potassium, bld 4.8 3.3 - 4.9 mmol/L Blood 06/03/2025 6:26 AM CDT 06/03/2025 6:37 AM CDT Bar Gamble MD LAB BLOOD ORDERABLES Final R esult Performing Organization Address [facility] de Phone Number [facility] Department [place] [address] * Oxyhemoglobin, central venous (06/03/2025 5:24 AM CDT) Oxyhemoglobin, CV 73.5 % Comment: Interpretive Data No reference range established. Current interpretive data was last revised 2020. Blood 06/03/2025 5:24 AM CDT 06/03/2025 5:35 AM CDT Addy Tapia MD LAB BLOOD ORDERABLES Fin al Result Performing Organization Address [facility] de Phone Number [facility] [place] [address] * Tacrolimus level trough (06/03/2025 5:17 AM CDT) Tacrolimus trough 8.9 ng/mL Comment: Interpretive Data Testing performed by liquid chromatography-tandem mass spectrometry. Therapeutic concentrations vary depending on type of transplanted organ and time elapsed since transplant. Typical trough concentrations range from 5-15 ng/mL. This test was developed and its performance characteristics determined by the [facility] Laboratory consistent with CLIA requirements. This test has not been cleared or approved by the [place] Food and Drug administration. Current interpretive data last reviewed 2020. Blood 06/03/2025 5:17 AM CDT 06/03/2025 5:42 AM CDT Zev Cowart MD PhD LAB BLOOD ORDERABLES Fi nal Result [facility] MARIA AR[facility] Department [place] [address] * (ABNORMAL) POCT glucose (06/02/2025 8:28 PM CDT) Glucose, POC 270(H) 70 - 199 mg/dL Blood 06/02/2025 8:28 PM CDT 06/02/2025 8:28 PM CDT us Addy Tapia MD LAB POCT ORDERABLES - DE VICE Final Result Performing Organization Address [facility] Co de Phone Number [facility] [place] [address] * (ABNORMAL) eGFR (06/02/2025 8:22 PM CDT) [...] 8:22 PM CDT 06/02/2025 8:48 PM CDT us Libia D. Huchel PROGRAM SUPPORT CLERK LAB BLOOD ORDERABLES Final Re sult Performing Organization Address [facility] Co de Phone Number [facility] Department [place] [address] * (ABNORMAL) CBC without differential (06/02/2025 8:22 PM CDT) Pathologist [facility] WBC 11.87(H) 3.80 - 9.90 K/cumm Hgb 7.7(L) 13.0 - 17.5 g/dL [facility] Hct 24.1(L) 38.9 - 50.3 % [facility] Plt 253 150 - 400 K/cumm [facility] MPV 11.2 9.1 - 12.3 fL [facility] RBC 2.88(L) 4.30 - 5.80 M/cumm [facility] MCV 83.7 81.3 - 96.4 fL [facility] MCH 26.7(L) 27.1 - 33.3 pg [facility] MCHC 32.0(L) 32.3 - 35.7 g/dL [facility] RDW CV 15.2(H) 11.1 - 14.9 % [facility] RDW SD 44.6 35.7 - 48.1 fL [facility] NRBC abs 0.00 0.00 - 0.01 K/cumm [facility] Blood 06/02/2025 8:22 PM CDT 06/02/2025 8:48 PM CDT Dinorah Kahn PROGRAM SUPPORT CLERK LAB BLOOD ORDERABLES Final Result Performing Organization Address [facility]/ZIP Co de Phone Number [facility] Department [place] [address] * Phosphorus (06/02/2025 8:22 PM CDT) Pathologist [facility] Phosphorus, pl 3.3 2.3 - 4.5 mg/dL Blood 06/02/2025 8:22 PM CDT 06/02/2025 8:48 PM CDT Libia Suarez PROGRAM SUPPORT CLERK LAB BLOOD ORDERABLES Final Re sult Performing Organization Address City/[facility]/ZIP Co de Phone Number [facility] [place] [address] * Magnesium (06/02/2025 8:22 PM CDT) Pathologist [facility] Magnesium 1.8 1.4 - 2.5 mg/dL Blood 06/02/2025 8:22 PM CDT 06/02/2025 8:48 PM CDT Dinorah Kahn PROGRAM SUPPORT CLERK LAB BLOOD ORDERABLES Final Result Performing Organization Address [facility] Co de Phone Number [facility] [place] [address] * (ABNORMAL) Hepatic function panel (06/02/2025 8:22 PM CDT) [facility] Bilirubin, total 0.3 0.1 - 1.2 mg/dL Bilirubin, direct 0.2 0.1 - 0.3 mg/dL [facility] Protein, pl 5.3(L) 6.5 - 8.5 g/dL [facility] Albumin 3.4(L) 3.5 - 5.0 g/dL [facility] Alk phos 250(H) 40 - 130 Units/L [facility] ALT 82(H) 7 - 55 Units/L [facility] AST 35 10 - 50 Units/L [facility] Blood 06/02/2025 8:22 PM CDT 06/02/2025 8:48 PM CDT Libia Suarez PROGRAM SUPPORT CLERK LAB BLOOD ORDERABLES Final Re sult Performing Organization Address [facility] Co de Phone Number [facility] [place] [address] * (ABNORMAL) Basic metabolic panel (06/02/2025 8:22 PM CDT) Sodium 138 135 - 145 mmol/L Potassium, pl 5.8(H) 3.3 - 4.9 mmol/L [facility] Chloride 106 97 - 110 mmol/L [facility] CO2 23 22 - 32 mmol/L [facility] Anion gap 9 2 - 15 mmol/L [facility] BUN 72(H) 6 - 25 mg/dL [facility] Creatinine 1.83(H) 0.80 - 1.30 mg/dL [facility] Glucose 258(H) 70 - 199 mg/dL [facility] Comment: Interpretive Data Fasting glucose >/= 126 [...] 2022. Calcium 8.8 8.5 - 10.3 mg/dL [facility] Blood 06/02/2025 8:22 PM CDT 06/02/2025 8:48 PM CDT us Libia Suarez NP LAB BLOOD ORDERABLES Final Re sult [facility] [place] [address] * POCT glucose (06/02/2025 3:35 PM CDT) Glucose, POC 180 70 - 199 mg/dL Blood 06/02/2025 3:35 PM CDT 06/02/2025 3:35 PM CDT Addy Tapia MD LAB POCT ORDERABLES - DE VICE Final Result [facility] [place] [address] * POCT glucose (06/02/2025 11:12 AM CDT) Glucose, POC 171 70 - 199 mg/dL Blood 06/02/2025 11:1 2 AM CDT 06/02/2025 11:12 AM CDT Addy Tapia MD LAB POCT ORDERABLES - DE VICE Final Result Performing Organization Address [facility] [place] [address] * POCT glucose (06/02/2025 7:56 AM CDT) Glucose, POC 160 70 - 199 mg/dL Blood 06/02/2025 7:56 AM CDT 06/02/2025 7:56 AM CDT Addy Tapia MD LAB POCT ORDERABLES - DE VICE Final Result Performing Organization Address [facility] [place] [address] * Oxyhemoglobin, central venous (06/02/2025 5:05 AM CDT) [facility] Oxyhemoglobin, CV 71.3 % Comment: Interpretive Data No reference range established. Current interpretive data was last revised 2020. Blood 06/02/2025 5:05 AM CDT 06/02/2025 5:32 AM CDT Addy Tapia MD LAB BLOOD ORDERABLES Fin al Result Performing Organization Address City/[facility]/ZIP Co de Phone Number [facility] [place] [address] * Potassium, whole blood (06/02/2025 5:05 AM CDT) Pathologist [facility] Potassium, bld 4.8 3.3 - 4.9 mmol/L Blood 06/02/2025 5:05 AM CDT 06/02/2025 5:32 AM CDT Addy Tapia MD LAB BLOOD ORDERABLES Fin al Result Performing Organization Address [facility] de Phone Number [facility] Department [place] [address] * Tacrolimus level trough (06/02/2025 5:05 AM CDT) [facility] Tacrolimus trough 11.5 ng/mL Comment: Interpretive Data Testing performed by liquid chromatography-tandem mass spectrometry. Therapeutic concentrations vary depending on type of transplanted organ and time elapsed since transplant. Typical trough concentrations range from 5-15 ng/mL. This test was developed and its performance characteristics determined by the [facility] consistent with CLIA requirements. This test has not been cleared or approved by the [place] Food and Drug administration. Current interpretive data last reviewed 2020. Blood 06/02/2025 5:05 AM CDT 06/02/2025 5:40 AM CDT Zev Cowart MD PhD LAB BLOOD ORDERABLES Fi nal Result Performing Organization Address [facility] de Phone Number [facility] [place] [address] * Antibody identification (06/01/2025 10:08 PM CDT) [facility] Antibody ID 1 Anti-CD38 Comment:Panreactive -CD38 on reagent RBCs reacting with anti-CD38 therapy. DTT treatment removes cell surface CD38 and allows detection of common clinically significant antibodies except those against Dilma antigens. TRANSFUSION 2015;[id number] Blood 06/01/2025 10:0 8 PM CDT 06/01/2025 10:08 PM CDT us Dinorah Kahn PROGRAM SUPPORT CLERK LAB BLOOD BANK TEST ORDERAB LES Final Result [facility] MARIA [facility] [place] [address] * XR Chest 1 View (06/01/2025 9:26 [...] * (ABNORMAL) eGFR (06/01/2025 8:20 PM CDT) eGFR 40(L) >=60 mL/min/1. 73 [...] 06/01/2025 9:12 PM CDT us Libia Suarez PROGRAM SUPPORT CLERK LAB BLOOD ORDERABLES Final Re sult [facility] [place] [address] * (ABNORMAL) CBC without differential (06/01/2025 8:20 PM CDT) WBC 13.71(H) 3.80 - 9.90 K/cumm Hgb 7.6(L) 13.0 - 17.5 g/dL [facility] Hct 23.9(L) 38.9 - 50.3 % [facility] Plt 240 150 - 400 K/cumm [facility] MPV 11.4 9.1 - 12.3 fL [facility] RBC 2.84(L) 4.30 - 5.80 M/cumm [facility] MCV 84.2 81.3 - 96.4 fL [facility] MCH 26.8(L) 27.1 - 33.3 pg [facility] MCHC 31.8(L) 32.3 - 35.7 g/dL [facility] RDW CV 15.0(H) 11.1 - 14.9 % [facility] RDW SD 45.1 35.7 - 48.1 fL [facility] NRBC abs 0.00 0.00 - 0.01 K/cumm [facility] Blood 06/01/2025 8:20 PM CDT 06/01/2025 9:13 PM CDT Dinorah Kahn NP LAB BLOOD ORDERABLES Final Result Performing Organization Address [facility]/[place] [address] * (ABNORMAL) Type and screen (06/01/2025 8:20 PM CDT) Poppy, indirect Positive(A) ABO Rh O Positive [facility] Blood 06/01/2025 8:20 PM CDT 06/01/2025 9:19 PM CDT Narrative [facility] - 06/01/2025 10:08 PM CDT Has the patient had Daratumumab or Isatuximab in the past 6 months?->Unknown Dinorah Kahn NP LAB BLOOD BANK TEST ORDERAB LES Final Result Performing Organization Address [facility] [place] [address] * Phosphorus (06/01/2025 8:20 PM CDT) Pathologist [facility] Phosphorus, pl 2.9 2.3 - 4.5 mg/dL Blood 06/01/2025 8:20 PM CDT 06/01/2025 9:12 PM CDT Libia Suarez PROGRAM SUPPORT CLERK LAB BLOOD ORDERABLES Final Re sult Performing Organization Address [facility] [place] [address] * Magnesium (06/01/2025 8:20 PM CDT) Magnesium 1.8 1.4 - 2.5 mg/dL Blood 06/01/2025 8:20 PM CDT 06/01/2025 9:12 PM CDT Dinorah Kahn PROGRAM SUPPORT CLERK LAB BLOOD ORDERABLES Final Result Performing Organization Address [facility]/ZIP Co de Phone Number [facility] [place] [address] * (ABNORMAL) Hepatic function panel (06/01/2025 8:20 PM CDT) Bilirubin, total 0.3 0.1 - 1.2 mg/dL Bilirubin, direct 0.2 0.1 - 0.3 mg/dL [facility] Protein, pl 5.4(L) 6.5 - 8.5 g/dL [facility] Albumin 3.5 3.5 - 5.0 g/dL [facility] Alk phos 243(H) 40 - 130 Units/L [facility] ALT 100(H) 7 - 55 Units/L [facility] AST 56(H) 10 - 50 Units/L [facility] Blood 06/01/2025 8:20 PM CDT 06/01/2025 9:12 PM CDT Libia Suarez PROGRAM SUPPORT CLERK LAB BLOOD ORDERABLES Final Re sult Performing Organization Address City/[facility] Co de Phone Number [facility] [place] [address] * (ABNORMAL) Basic metabolic panel (06/01/2025 8:20 PM CDT) Sodium 135 135 - 145 mmol/L Potassium, pl 5.9(H) 3.3 - 4.9 mmol/L [facility] Chloride 104 97 - 110 mmol/L [facility] CO2 23 22 - 32 mmol/L [facility] Anion gap 8 2 - 15 mmol/L [facility] BUN 70(H) 6 - 25 mg/dL [facility] Creatinine 1.89(H) 0.80 - 1.30 mg/dL [facility] Glucose 259(H) 70 - 199 mg/dL [facility] Comment: Interpretive Data Fasting glucose >/= 126 [...] 2022. Calcium 9.1 8.5 - 10.3 mg/dL [facility] Blood 06/01/2025 8:20 PM CDT 06/01/2025 9:12 PM CDT Libia Suarez NP LAB BLOOD ORDERABLES Final Re sult Performing Organization Address City/[facility]/ZIP Co de Phone Number [facility] [place] [address] * (ABNORMAL) POCT glucose (06/01/2025 7:56 PM CDT) Glucose, POC 248(H) 70 - 199 mg/dL Blood 06/01/2025 7:56 PM CDT 06/01/2025 7:56 PM CDT Addy Tapia MD LAB POCT ORDERABLES - DE VICE Final Result [facility] [place] [address] * POCT glucose (06/01/2025 4:58 PM CDT) Glucose, POC 190 70 - 199 mg/dL Blood 06/01/2025 4:58 PM CDT 06/01/2025 4:58 PM CDT Addy Tapia MD LAB POCT ORDERABLES - DE VICE Final Result Performing Organization Address City/[facility]/ZIP Co de Phone Number [facility] [place] [address] * XR Abdomen 1 View AP (06/01/2025 [...] signed by: Jamie Lugo M.D. Araceli Hemphill PROGRAM SUPPORT CLERK IMG XR PROCEDURES Final Resul t * (ABNORMAL) POCT glucose (06/01/2025 10:52 AM CDT) Glucose, POC 253(H) 70 - 199 mg/dL Blood 06/01/2025 10:5 2 AM CDT 06/01/2025 10:52 AM CDT Addy Tapia MD LAB POCT ORDERABLES - DE VICE Final Result [facility] [place] [address] * POCT glucose (06/01/2025 8:09 AM CDT) Glucose, POC 150 70 - 199 mg/dL Blood 06/01/2025 8:09 AM CDT 06/01/2025 8:09 AM CDT Addy Tapia MD LAB POCT ORDERABLES - DE VICE Final Result Performing Organization Address City/[facility] [place] [address] * POCT glucose (06/01/2025 5:18 AM CDT) Glucose, POC 172 70 - 199 mg/dL Blood 06/01/2025 5:18 AM CDT 06/01/2025 5:18 AM CDT Addy Tapia MD LAB POCT ORDERABLES - DE VICE Final Result Performing Organization Address [facility] [place] [address] * Tacrolimus level trough (06/01/2025 5:16 AM CDT) [facility] Tacrolimus trough 7.3 ng/mL Comment: Interpretive Data Testing performed by liquid chromatography-tandem mass spectrometry. Therapeutic concentrations vary depending on type of transplanted organ and time elapsed since transplant. Typical trough concentrations range from 5-15 ng/mL. This test was developed and its performance characteristics determined by the [facility] consistent with CLIA requirements. This test has not been cleared or approved by the US Food and Drug administration. Current interpretive data last reviewed 2020. Blood 06/01/2025 5:16 AM CDT 06/01/2025 5:50 AM CDT us Zev Cowart MD PhD LAB BLOOD ORDERABLES Fi nal Result Performing Organization Address [facility] Co de Phone Number [facility] Department [place] [address] * (ABNORMAL) eGFR (05/31/2025 9:47 PM CDT) [...] 05/31/2025 11:08 PM CDT us Libia Suarez PROGRAM SUPPORT CLERK LAB BLOOD ORDERABLES Final Re sult Performing Organization Address City/[facility]/ZIP Co de Phone Number DULCE MARIA [facility] [place] [address] * (ABNORMAL) CBC without differential (05/31/2025 9:47 PM CDT) Pathologist [facility] WBC 9.43 3.80 - 9.90 K/cumm Hgb 8.0(L) 13.0 - 17.5 g/dL [facility] Hct 24.8(L) 38.9 - 50.3 % [facility] Plt 206 150 - 400 K/cumm [facility] MPV 10.9 9.1 - 12.3 fL [facility] RBC 2.99(L) 4.30 - 5.80 M/cumm [facility] MCV 82.9 81.3 - 96.4 fL [facility] MCH 26.8(L) 27.1 - 33.3 pg [facility] MCHC 32.3 32.3 - 35.7 g/dL [facility] RDW CV 14.9 11.1 - 14.9 % [facility] RDW SD 44.4 35.7 - 48.1 fL [facility] NRBC abs 0.00 0.00 - 0.01 K/cumm [facility] Blood 05/31/2025 9:47 PM CDT 05/31/2025 11:08 PM CDT Dinorah Kahn PROGRAM SUPPORT CLERK LAB BLOOD ORDERABLES Final Result [facility] [place] [address] * Phosphorus (05/31/2025 9:47 PM CDT) Phosphorus, pl 2.6 2.3 - 4.5 mg/dL Blood 05/31/2025 9:47 PM CDT 05/31/2025 11:08 PM CDT Libia Suarez PROGRAM SUPPORT CLERK LAB BLOOD ORDERABLES Final Re sult [facility] Department [place] [address] * Magnesium (05/31/2025 9:47 PM CDT) Magnesium 2.0 1.4 - 2.5 mg/dL Blood 05/31/2025 9:47 PM CDT 05/31/2025 11:08 PM CDT Dinorah Kahn PROGRAM SUPPORT CLERK LAB BLOOD ORDERABLES Final Result Performing Organization Address [facility]/ZIP Co de Phone Number [facility] Department [place] [address] * (ABNORMAL) Hepatic function panel (05/31/2025 9:47 PM CDT) Pathologist [facility] Bilirubin, total 0.3 0.1 - 1.2 mg/dL Bilirubin, direct 0.2 0.1 - 0.3 mg/dL [facility] Protein, pl 5.5(L) 6.5 - 8.5 g/dL [facility] Albumin 3.4(L) 3.5 - 5.0 g/dL [facility] Alk phos 242(H) 40 - 130 Units/L [facility] ALT 99(H) 7 - 55 Units/L [facility] AST 63(H) 10 - 50 Units/L [facility] Blood 05/31/2025 9:47 PM CDT 05/31/2025 11:08 PM CDT Libia Suarez PROGRAM SUPPORT CLERK LAB BLOOD ORDERABLES Final Re sult Performing Organization Address [facility] Co de Phone Number [facility] Department [place] [address] * (ABNORMAL) Basic metabolic panel (05/31/2025 9:47 PM CDT) Pathologist [facility] Sodium 137 135 - 145 mmol/L Potassium, pl 5.3(H) 3.3 - 4.9 mmol/L [facility] Chloride 104 97 - 110 mmol/L [facility] CO2 24 22 - 32 mmol/L [facility] Anion gap 9 2 - 15 mmol/L [facility] BUN 63(H) 6 - 25 mg/dL [facility] Creatinine 1.65(H) 0.80 - 1.30 mg/dL [facility] Glucose 295(H) 70 - 199 mg/dL [facility] Comment: Interpretive Data Fasting glucose >/= 126 [...] 2022. Calcium 8.7 8.5 - 10.3 mg/dL [facility] Blood 05/31/2025 9:47 PM CDT 05/31/2025 11:08 PM CDT us Libia Suarez PROGRAM SUPPORT CLERK LAB BLOOD ORDERABLES Final Re sult [facility] [place] [address] * XR Chest 1 View (05/31/2025 8:58 [...] 8:49 PM CDT 05/31/2025 8:49 PM CDT Result Mari Tapia MD LAB POCT ORDERABLES - DE VICE Final Result Performing Organization Address [facility] Phone Number [facility] [place] [address] * POCT glucose (05/31/2025 3:58 PM CDT) Glucose, POC 198 70 - 199 mg/dL Blood 05/31/2025 3:58 PM CDT 05/31/2025 3:58 PM CDT Addy Tapia MD LAB POCT ORDERABLES - DE VICE Final Result Performing Organization Address [facility] Phone Number [facility] [place] [address] * POCT glucose (05/31/2025 11:47 AM CDT) Glucose, POC 173 70 - 199 mg/dL Blood 05/31/2025 11:4 7 AM CDT 05/31/2025 11:47 AM CDT Addy Tapia MD LAB POCT ORDERABLES - DE VICE Final Result Performing Organization Address [facility] Phone Number [facility] [place] [address] * POCT glucose (05/31/2025 7:45 AM CDT) Glucose, POC 155 70 - 199 mg/dL Blood 05/31/2025 7:45 AM CDT 05/31/2025 7:45 AM CDT Addy Tapia MD LAB POCT ORDERABLES - DE VICE Final Result Performing Organization Address [facility] de Phone Number DULCE MARIA [facility] [place] [address] * Tacrolimus level trough (05/31/2025 4:18 AM CDT) Tacrolimus trough 8.5 ng/mL Comment: Interpretive Data Testing performed by liquid chromatography-tandem mass spectrometry. Therapeutic concentrations vary depending on type of transplanted organ and time elapsed since transplant. Typical trough concentrations range from 5-15 ng/mL. This test was developed and its performance characteristics determined by the [facility] consistent with CLIA requirements. This test has not been cleared or approved by the US Food and Drug administration. Current interpretive data last reviewed 2020. Blood 05/31/2025 4:18 AM CDT 05/31/2025 5:39 AM CDT Zev Cowart MD PhD LAB BLOOD ORDERABLES Fi nal Result Performing Organization Address [facility] Co de Phone Number [facility] [place] [address] * XR Chest 1 View (05/30/2025 10:18 [...] 8:30 PM CDT 05/30/2025 8:44 PM CDT Dinorah Kahn PROGRAM SUPPORT CLERK LAB BLOOD ORDERABLES Final Result DULCE MARIA [facility] [place] [address] * (ABNORMAL) Potassium, whole blood (05/30/2025 8:30 PM CDT) Potassium, bld 5.1(H) 3.3 - 4.9 mmol/L Blood 05/30/2025 8:30 PM CDT 05/30/2025 8:44 PM CDT us Bar Gamble MD LAB BLOOD ORDERABLES Final R esult Performing Organization Address [facility] Co de Phone Number [facility]CE MARIA [facility] Department [place] [address] * (ABNORMAL) eGFR (05/30/2025 8:23 PM CDT) [...] 8:23 PM CDT 05/30/2025 8:54 PM CDT us Libia Suarez PROGRAM SUPPORT CLERK LAB BLOOD ORDERABLES Final Re sult Performing Organization Address City/[facility]/ZIP Co de Phone Number DULCE MARIA [facility] Department [place] [address] * (ABNORMAL) CBC without differential (05/30/2025 8:23 PM CDT) WBC 9.23 3.80 - 9.90 K/cumm Hgb 8.3(L) 13.0 - 17.5 g/dL [facility] Hct 25.8(L) 38.9 - 50.3 % [facility] Plt 193 150 - 400 K/cumm [facility] MPV 11.1 9.1 - 12.3 fL [facility] RBC 3.08(L) 4.30 - 5.80 M/cumm [facility] MCV 83.8 81.3 - 96.4 fL [facility] MCH 26.9(L) 27.1 - 33.3 pg [facility] MCHC 32.2(L) 32.3 - 35.7 g/dL [facility] RDW CV 14.7 11.1 - 14.9 % [facility] RDW SD 44.9 35.7 - 48.1 fL [facility] NRBC abs 0.00 0.00 - 0.01 K/cumm [facility] Blood 05/30/2025 8:23 PM CDT 05/30/2025 8:51 PM CDT Dinorah Kahn PROGRAM SUPPORT CLERK LAB BLOOD ORDERABLES Final Result Performing Organization Address City/[facility]/ZIP Co de Phone Number [facility] [place] [address] * Phosphorus (05/30/2025 8:23 PM CDT) Pathologist [facility] Phosphorus, pl 2.6 2.3 - 4.5 mg/dL Blood 05/30/2025 8:23 PM CDT 05/30/2025 8:48 PM CDT Libia Suarez PROGRAM SUPPORT CLERK LAB BLOOD ORDERABLES Final Re sult [facility] [place] [address] * Magnesium (05/30/2025 8:23 PM CDT) Pathologist [facility] Magnesium 1.9 1.4 - 2.5 mg/dL Blood 05/30/2025 8:23 PM CDT 05/30/2025 8:48 PM CDT Addy Tapia MD LAB BLOOD ORDERABLES Fin al Result Performing Organization Address [facility] Co de Phone Number [facility] [place] [address] * (ABNORMAL) Hepatic function panel (05/30/2025 8:23 PM CDT) Bilirubin, total 0.4 0.1 - 1.2 mg/dL Bilirubin, direct 0.2 0.1 - 0.3 mg/dL [facility] Protein, pl 5.4(L) 6.5 - 8.5 g/dL [facility] Albumin 3.4(L) 3.5 - 5.0 g/dL [facility] Alk phos 202(H) 40 - 130 Units/L [facility] ALT 63(H) 7 - 55 Units/L [facility] AST 57(H) 10 - 50 Units/L [facility] Blood 05/30/2025 8:23 PM CDT 05/30/2025 8:48 PM CDT Libia Suarez NP LAB BLOOD ORDERABLES Final Re sult Performing Organization Address [facility] Co de Phone Number [facility] Department [place] [address] * (ABNORMAL) Basic metabolic panel (05/30/2025 8:23 PM CDT) Sodium 136 135 - 145 mmol/L Potassium, pl 5.2(H) 3.3 - 4.9 mmol/L [facility] Chloride 104 97 - 110 mmol/L [facility] CO2 25 22 - 32 mmol/L [facility] Anion gap 7 2 - 15 mmol/L [facility] BUN 57(H) 6 - 25 mg/dL [facility] Creatinine 1.54(H) 0.80 - 1.30 mg/dL [facility] Glucose 235(H) 70 - 199 mg/dL [facility] Comment: Interpretive Data Fasting glucose >/= 126 [...] 2022. Calcium 8.7 8.5 - 10.3 mg/dL [facility] Blood 05/30/2025 8:23 PM CDT 05/30/2025 8:48 PM CDT Libia Suarez PROGRAM SUPPORT CLERK LAB BLOOD ORDERABLES Final Re sult [facility] [place] [address] * (ABNORMAL) POCT glucose (05/30/2025 8:05 PM CDT) Glucose, POC 240(H) 70 - 199 mg/dL Blood 05/30/2025 8:05 PM CDT 05/30/2025 8:05 PM CDT Addy Tapia MD LAB POCT ORDERABLES - DE VICE Final Result [facility] [place] [address] * POCT glucose (05/30/2025 4:44 PM CDT) Glucose, POC 187 70 - 199 mg/dL Blood 05/30/2025 4:44 PM CDT 05/30/2025 4:44 PM CDT us Addy Tapia MD LAB POCT ORDERABLES - DE VICE Final Result Performing Organization Address [facility] Phone Number [facility] [place] [address] * POCT glucose (05/30/2025 11:41 AM CDT) Glucose, POC 174 70 - 199 mg/dL Blood 05/30/2025 11:4 1 AM CDT 05/30/2025 11:41 AM CDT Addy Tapia MD LAB POCT ORDERABLES - DE VICE Final Result Performing Organization Address [facility] [place] [address] * POCT glucose (05/30/2025 7:35 AM CDT) Glucose, POC 143 70 - 199 mg/dL Blood 05/30/2025 7:35 AM CDT 05/30/2025 7:35 AM CDT Addy Tapia MD LAB POCT ORDERABLES - DE VICE Final Result Performing Organization Address [facility] Phone Number [facility] [place] [address] * Tacrolimus level trough (05/30/2025 5:28 AM CDT) Tacrolimus trough 10.2 ng/mL Comment: Interpretive Data Testing performed by liquid chromatography-tandem mass spectrometry. Therapeutic concentrations vary depending on type of transplanted organ and time elapsed since transplant. Typical trough concentrations range from 5-15 ng/mL. This test was developed and its performance characteristics determined by the [facility] consistent with CLIA requirements. This test has not been cleared or approved by the [place] Food and Drug administration. Current interpretive data last reviewed 2020. Blood 05/30/2025 5:28 AM CDT 05/30/2025 5:41 AM CDT us Zev Cowart MD PhD LAB BLOOD ORDERABLES Fi nal Result Performing Organization Address City/[facility] Co de Phone Number [facility] [place] [address] * Antibody identification (05/29/2025 10:52 PM CDT) Antibody ID 1 Anti-CD38 Comment:Panreactive -CD38 on reagent RBCs reacting with anti-CD38 therapy. DTT treatment removes cell surface CD38 and allows detection of common clinically significant antibodies except those against [place] antigens. TRANSFUSION [id number] Blood 05/29/2025 10:5 2 PM CDT 05/29/2025 10:52 PM CDT us Dinorah Kahn PROGRAM SUPPORT CLERK LAB BLOOD BANK TEST ORDERAB LES Final Result Performing Organization Address [facility] de Phone Number DULCE MARIA [facility] [place] [employer] [place] [address] * (ABNORMAL) eGFR (05/29/2025 8:49 PM CDT) eGFR 43(L) >=60 mL/min/1. 73 m2 Comment: [...] CDT 05/29/2025 9:30 PM CDT Libia Suarez PROGRAM SUPPORT CLERK LAB BLOOD ORDERABLES Final Re sult [facility] [place] [address] * (ABNORMAL) CBC without differential (05/29/2025 8:49 PM CDT) WBC 10.46(H) 3.80 - 9.90 K/cumm Hgb 8.7(L) 13.0 - 17.5 g/dL [facility] Hct 26.4(L) 38.9 - 50.3 % [facility] Plt 207 150 - 400 K/cumm [facility] MPV 11.1 9.1 - 12.3 fL [facility] RBC 3.23(L) 4.30 - 5.80 M/cumm [facility] MCV 81.7 81.3 - 96.4 fL [facility] MCH 26.9(L) 27.1 - 33.3 pg [facility] MCHC 33.0 32.3 - 35.7 g/dL [facility] RDW CV 14.7 11.1 - 14.9 % [facility] RDW SD 44.1 35.7 - 48.1 fL [facility] NRBC abs 0.00 0.00 - 0.01 K/cumm [facility] Blood 05/29/2025 8:49 PM CDT 05/29/2025 9:31 PM CDT Dinorah Kahn PROGRAM SUPPORT CLERK LAB BLOOD ORDERABLES Final Result [facility] [place] [address] * (ABNORMAL) Type and screen (05/29/2025 8:49 PM CDT) Pathologist [facility] ABO Rh O Positive Poppy, indirect Positive(A) [facility] Blood 05/29/2025 8:49 PM CDT 05/29/2025 9:39 PM CDT Narrative [facility] - 05/29/2025 10:52 PM CDT Has the patient had Daratumumab or Isatuximab in the past 6 months?->Unknown Dinorah Kahn PROGRAM SUPPORT CLERK LAB BLOOD BANK TEST ORDERAB LES Final Result Performing Organization Address [facility] Co de Phone Number [facility] Department [place] [address] * Phosphorus (05/29/2025 8:49 PM CDT) [facility] Phosphorus, pl 2.8 2.3 - 4.5 mg/dL Blood 05/29/2025 8:49 PM CDT 05/29/2025 9:30 PM CDT Libia Suarez NP LAB BLOOD ORDERABLES Final Re sult Performing Organization Address [facility] Co de Phone Number [facility] Department [place] [address] * Magnesium (05/29/2025 8:49 PM CDT) [facility] Magnesium 2.4 1.4 - 2.5 mg/dL Blood 05/29/2025 8:49 PM CDT 05/29/2025 9:30 PM CDT Libia Suarez NP LAB BLOOD ORDERABLES Final Re sult Performing Organization Address City/[facility]/ZIP Co de Phone Number [facility] [place] [address] * (ABNORMAL) Hepatic function panel (05/29/2025 8:49 PM CDT) [facility] Bilirubin, total 0.5 0.1 - 1.2 mg/dL Bilirubin, direct 0.3 0.1 - 0.3 mg/dL [facility] Protein, pl 5.3(L) 6.5 - 8.5 g/dL [facility] Albumin 3.5 3.5 - 5.0 g/dL [facility] Alk phos 160(H) 40 - 130 Units/L [facility] ALT 32 7 - 55 Units/L [facility] AST 24 10 - 50 Units/L [facility] Blood 05/29/2025 8:49 PM CDT 05/29/2025 9:30 PM CDT Libia Suarez PROGRAM SUPPORT CLERK LAB BLOOD ORDERABLES Final Re sult [facility] [place] [address] * (ABNORMAL) Basic metabolic panel (05/29/2025 8:49 PM CDT) [facility] Sodium 133(L) 135 - 145 mmol/L Potassium, pl 5.2(H) 3.3 - 4.9 mmol/L [facility] Chloride 100 97 - 110 mmol/L [facility] CO2 25 22 - 32 mmol/L [facility] Anion gap 8 2 - 15 mmol/L [facility] BUN 58(H) 6 - 25 mg/dL [facility] Creatinine 1.78(H) 0.80 - 1.30 mg/dL [facility] Glucose 288(H) 70 - 199 mg/dL [facility] Comment: Interpretive Data Fasting glucose >/= 126 [...] 2022. Calcium 8.7 8.5 - 10.3 mg/dL [facility] Blood 05/29/2025 8:49 PM CDT 05/29/2025 9:30 PM CDT Libia Suarez PROGRAM SUPPORT CLERK LAB BLOOD ORDERABLES Final Re sult [facility] [place] [address] * (ABNORMAL) POCT glucose (05/29/2025 8:13 PM CDT) [facility] Signature Glucose, POC 284(H) 70 - 199 mg/dL Blood 05/29/2025 8:13 PM CDT 05/29/2025 8:13 PM CDT Addy Tapia MD LAB POCT ORDERABLES - DE VICE Final Result Performing Organization Address [facility]/ZIP Co de Phone Number [facility] Department [place] [address] * XR Chest 1 View (05/29/2025 7:49 [...] DE VICE Final Result Performing Organization Address [facility]/ZIP Co de Phone Number [facility] [place] [address] * (ABNORMAL) Potassium, whole blood (05/29/2025 2:32 PM CDT) Potassium, bld 5.1(H) 3.3 - 4.9 mmol/L Blood 05/29/2025 2:32 PM CDT 05/29/2025 2:40 PM CDT Bar Gamble MD LAB BLOOD ORDERABLES Final R esult Performing Organization Address City/[facility]/ZIP Co de Phone Number [facility] [place] [address] * POCT glucose (05/29/2025 11:27 AM CDT) Glucose, POC 196 70 - 199 mg/dL Blood 05/29/2025 11:2 7 AM CDT 05/29/2025 11:27 AM CDT Addy Tapia MD LAB POCT ORDERABLES - DE VICE Final Result Performing Organization Address City/[facility]/ZIP Co de Phone [place] [address] * (ABNORMAL) eGFR (05/29/2025 7:31 AM CDT) Pathologist [facility] eGFR 43(L) >=60 mL/min/1. 73 m2 Comment: [...] ORDERABLES Fin al Result Performing Organization Address City/[facility]/ZIP Co de Phone Number D[facility] MAR[facility] [place] [address] * (ABNORMAL) Basic metabolic panel (05/29/2025 7:31 AM CDT) Sodium 138 135 - 145 mmol/L Potassium, pl 3.6 3.3 - 4.9 mmol/L [facility] Chloride 104 97 - 110 mmol/L [facility] CO2 26 22 - 32 mmol/L [facility] Anion gap 8 2 - 15 mmol/L [facility] BUN 56(H) 6 - 25 mg/dL [facility] Creatinine 1.77(H) 0.80 - 1.30 mg/dL [facility] Glucose 138 70 - 199 mg/dL [facility] Comment: Interpretive Data Fasting glucose >/= 126 [...] 2022. Calcium 9.0 8.5 - 10.3 mg/dL [facility] Blood 05/29/2025 7:31 AM CDT 05/29/2025 7:38 AM CDT Addy Tapia MD LAB BLOOD ORDERABLES Fin al Result [facility] [place] [address] * POCT glucose (05/29/2025 7:28 AM CDT) Glucose, POC 139 70 - 199 mg/dL Blood 05/29/2025 7:28 AM CDT 05/29/2025 7:28 AM CDT Addy Tapia MD LAB POCT ORDERABLES - DE VICE Final Result Performing Organization Address [facility] Co de Phone Number DULCE MARIA [facility] Department [place] [address] * Tacrolimus level trough (05/29/2025 5:24 AM CDT) Tacrolimus trough 6.4 ng/mL Comment: Interpretive Data Testing performed by liquid chromatography-tandem mass spectrometry. Therapeutic concentrations vary depending on type of transplanted organ and time elapsed since transplant. Typical trough concentrations range from 5-15 ng/mL. This test was developed and its performance characteristics determined by the [facility] consistent with CLIA requirements. This test has not been cleared or approved by the [place] Food and Drug administration. Current interpretive data last reviewed 2020. Blood 05/29/2025 5:24 AM CDT 05/29/2025 5:31 AM CDT Zev Cowart MD PhD LAB BLOOD ORDERABLES Fi nal Result Performing Organization Address [facility] Co de Phone Number [facility] [place] [address] * Potassium, whole blood (05/28/2025 11:51 PM CDT) Pathologist [facility] Potassium, bld 4.1 3.3 - 4.9 mmol/L Blood 05/28/2025 11:5 1 PM CDT 05/29/2025 12:03 AM CDT Addy Tapia MD LAB BLOOD ORDERABLES Fin al Result Performing Organization Address [facility] Co de Phone Number [facility] [place] [address] * (ABNORMAL) eGFR (05/28/2025 11:51 PM CDT) Pathologist [facility] eGFR 40(L) >=60 mL/min/1. 73 m2 Comment: [...] MD LAB BLOOD ORDERABLES Fin al Result [facility] Department of [place] [address] * (ABNORMAL) CBC without differential (05/28/2025 11:51 PM CDT) WBC 11.90(H) 3.80 - 9.90 K/cumm Hgb 7.9(L) 13.0 - 17.5 g/dL [facility] Hct 24.1(L) 38.9 - 50.3 % [facility] Plt 166 150 - 400 K/cumm [facility] MPV 10.8 9.1 - 12.3 fL [facility] RBC 2.92(L) 4.30 - 5.80 M/cumm [facility] MCV 82.5 81.3 - 96.4 fL [facility] MCH 27.1 27.1 - 33.3 pg [facility] MCHC 32.8 32.3 - 35.7 g/dL [facility] RDW CV 14.6 11.1 - 14.9 % [facility] RDW SD 43.3 35.7 - 48.1 fL [facility] NRBC abs 0.00 0.00 - 0.01 K/cumm [facility] Blood 05/28/2025 11:5 1 PM CDT 05/29/2025 12:15 AM CDT Addy Tapia MD LAB BLOOD ORDERABLES Fin al Result Performing Organization Address City/[facility] Co de Phone Number [facility] [place] [address] * Phosphorus (05/28/2025 11:51 PM CDT) Phosphorus, pl 2.8 2.3 - 4.5 mg/dL Blood 05/28/2025 11:5 1 PM CDT 05/29/2025 12:25 AM CDT Addy Tapia MD LAB BLOOD ORDERABLES Fin al Result Performing Organization Address [facility] de Phone Number [facility] [place] [employer] [place] [address] * Magnesium (05/28/2025 11:51 PM CDT) Magnesium 1.8 1.4 - 2.5 mg/dL Blood 05/28/2025 11:5 1 PM CDT 05/29/2025 12:25 AM CDT Addy Tapia MD LAB BLOOD ORDERABLES Fin al Result Performing Organization Address [facility] Co de Phone Number [facility] [place] [address] * (ABNORMAL) Hepatic function panel (05/28/2025 11:51 PM CDT) Bilirubin, total 0.5 0.1 - 1.2 mg/dL Bilirubin, direct 0.3 0.1 - 0.3 mg/dL [facility] Protein, pl 5.2(L) 6.5 - 8.5 g/dL [facility] Albumin 3.3(L) 3.5 - 5.0 g/dL [facility] Alk phos 127 40 - 130 Units/L [facility] ALT 20 7 - 55 Units/L [facility] AST 19 10 - 50 Units/L [facility] Blood 05/28/2025 11:5 1 PM CDT 05/29/2025 12:25 AM CDT us Bar Gamble MD LAB BLOOD ORDERABLES Final R esult [facility] [place] [address] * (ABNORMAL) Basic metabolic panel (05/28/2025 11:51 PM CDT) Sodium 138 135 - 145 mmol/L Potassium, pl 4.1 3.3 - 4.9 mmol/L [facility] Chloride 101 97 - 110 mmol/L [facility] CO2 25 22 - 32 mmol/L [facility] Anion gap 12 2 - 15 mmol/L [facility] BUN 56(H) 6 - 25 mg/dL [facility] Creatinine 1.87(H) 0.80 - 1.30 mg/dL [facility] Glucose 234(H) 70 - 199 mg/dL [facility] Comment: Interpretive Data Fasting glucose >/= 126 [...] 2022. Calcium 8.5 8.5 - 10.3 mg/dL [facility] Blood 05/28/2025 11:5 1 PM CDT 05/29/2025 12:25 AM CDT Addy Tapia MD LAB BLOOD ORDERABLES Fin al Result Performing Organization Address City/[facility]/ZIP Co de Phone Number [facility] [place] [address] * (ABNORMAL) POCT glucose (05/28/2025 11:45 PM CDT) Glucose, POC 233(H) 70 - 199 mg/dL Blood 05/28/2025 11:4 5 PM CDT 05/28/2025 11:45 PM CDT Addy Tapia MD LAB POCT ORDERABLES - DE VICE Final Result Performing Organization Address [facility] de Phone Number [facility] [place] [address] * ECG 12 lead (05/28/2025 11:29 PM CDT) Ventricular Rate EKG/Min 101 BPM [facility] Atrial Rate 101 BPM [facility] [place]-Interval (MSEC) 132 ms [facility] QRS-Interval (MSEC) 66 ms [facility] QT-Interval (MSEC) 350 ms [facility] QTc 453 ms [facility] P [place] 67 degrees [facility] R [place] 55 degrees [facility] T [place] -7 degrees [facility] Diagnosis Sinus tachycardia with Premature atrial complexes Poor r wave progression associated with abnormal lead placement, obesity, pulmonary disease, anterior infarction. noted 01-JUL-2021) possible inferior infarction noted April 08, 2025 Abnormal ECG When compared with ECG of 02-MAY-2025 16:11, [place] interval has decreased Incomplete right bundle branch block is no longer Present Confirmed by MERARY ZEPEDA M.D ([id number]) on 05/29/2025 10:01:54 AM [facility] 05/28/2025 11:2 9 PM CDT 05/29/2025 10:01 AM CDT us Zev Cowart MD PhD ECG ORDERABLES Final R esult [facility] * (ABNORMAL) POCT glucose (05/28/2025 8:08 PM CDT) Glucose, POC 246(H) 70 - 199 mg/dL Blood 05/28/2025 8:08 PM CDT 05/28/2025 8:08 PM CDT us Addy Tapia MD LAB POCT ORDERABLES - DE VICE Final Result Performing Organization Address [facility] Co de Phone Number [facility] [place] [address] * XR Chest 1 View (05/28/2025 8:06 [...] 4:14 PM CDT 05/28/2025 4:23 PM CDT us Bar Gamble MD LAB BLOOD ORDERABLES Final R esult [facility] [place] [address] * (ABNORMAL) eGFR (05/28/2025 4:14 PM CDT) [...] MD LAB BLOOD ORDERABLES Fin al Result [facility] [place] [address] * (ABNORMAL) Basic metabolic panel (05/28/2025 4:14 PM CDT) [facility] Sodium 139 135 - 145 mmol/L Potassium, pl 4.4 3.3 - 4.9 mmol/L [facility] Chloride 104 97 - 110 mmol/L [facility] CO2 26 22 - 32 mmol/L [facility] Anion gap 9 2 - 15 mmol/L [facility] BUN 60(H) 6 - 25 mg/dL [facility] Creatinine 2.02(H) 0.80 - 1.30 mg/dL [facility] Glucose 278(H) 70 - 199 mg/dL [facility] Comment: Interpretive Data Fasting glucose >/= 126 [...] 2022. Calcium 8.9 8.5 - 10.3 mg/dL [facility] Blood 05/28/2025 4:14 PM CDT 05/28/2025 4:29 PM CDT Addy Tapia MD LAB BLOOD ORDERABLES Fin al Result Performing Organization Address City/[facility]/ZIP Co de Phone Number [facility] [place] [address] * (ABNORMAL) POCT glucose (05/28/2025 4:13 PM CDT) Glucose, POC 275(H) 70 - 199 mg/dL Blood 05/28/2025 4:13 PM CDT 05/28/2025 4:13 PM CDT Addy Tapia MD LAB POCT ORDERABLES - DE VICE Final Result [facility] [place] [address] * MEDICAL STAFF CREDENTIALING COORDINATOR Evaluation and Treatment (05/28/2025 12:22 PM CDT) Narrative Katerina Castro SLP - 05/28/2025 12:22 PM CDT Katerina Castro SLP 05/28/2025 1:20 PM Speech-Language Pathology: Clinical Bedside Swallow HPI/PM 59 y.o. male with history of AL [...] therapies evaluation. 05/21 OHT, extubated 05/22 Passed [place] swallow screen. 05/28: Colonic ileus resolved, consult to MEDICAL STAFF CREDENTIALING COORDINATOR versus need to start EN if he [...] Aspiration Risk: No aspiration risk (170-200) Plan MEDICAL STAFF CREDENTIALING COORDINATOR Frequency of Services during current admission: One-time visit (Discharge from this service) MEDICAL STAFF CREDENTIALING COORDINATOR Recommendation (Add'l Services): No further MEDICAL STAFF CREDENTIALING COORDINATOR indicated Next Visit Plan:No further ST warranted Additional Referrals: RD f/u Please reference care plan for treatment goals, if indicated. Discharge Summary Statement If this is the last swallow therapy visit, this serves as the discharge summary. us Addy Tapia MD MEDICAL STAFF CREDENTIALING COORDINATOR ORDERABLES Final Re sult * POCT glucose (05/28/2025 11:08 AM CDT) Glucose, POC 166 70 - 199 mg/dL Blood 05/28/2025 11:0 8 AM CDT 05/28/2025 11:08 AM CDT Addy Tapia MD LAB POCT ORDERABLES - DE VICE Final Result [facility] MARIA [facility] [place] [address] * (ABNORMAL) eGFR (05/28/2025 9:58 AM CDT) [...] 9:58 AM CDT 05/28/2025 10:10 AM CDT us Addy Tapia MD LAB BLOOD ORDERABLES Fin al Result [facility] [place] [address] * (ABNORMAL) Basic metabolic panel (05/28/2025 9:58 AM CDT) Sodium 142 135 - 145 mmol/L Potassium, pl 3.6 3.3 - 4.9 mmol/L [facility] Chloride 105 97 - 110 mmol/L [facility] CO2 27 22 - 32 mmol/L [facility] Anion gap 10 2 - 15 mmol/L [facility] BUN 64(H) 6 - 25 mg/dL [facility] Creatinine 2.23(H) 0.80 - 1.30 mg/dL [facility] Glucose 134 70 - 199 mg/dL [facility] Comment: Interpretive Data Fasting glucose >/= 126 [...] 2022. Calcium 9.0 8.5 - 10.3 mg/dL [facility] Blood 05/28/2025 9:58 AM CDT 05/28/2025 10:10 AM CDT Addy Tapia MD LAB BLOOD ORDERABLES Fin al Result Performing Organization Address City/[facility]/ZIP Co de Phone Number [facility] [place] [address] * Tacrolimus level trough (05/28/2025 8:30 AM CDT) Tacrolimus trough 4.2 ng/mL Comment: Interpretive Data Testing performed by liquid chromatography-tandem mass spectrometry. Therapeutic concentrations vary depending on type of transplanted organ and time elapsed since transplant. Typical trough concentrations range from 5-15 ng/mL. This test was developed and its performance characteristics determined by the [facility] consistent with CLIA requirements. This test has not been cleared or approved by the [place] Food and Drug administration. Current interpretive data last reviewed 2020. Blood 05/28/2025 8:30 AM CDT 05/28/2025 9:06 AM CDT Addy Tapia MD LAB BLOOD ORDERABLES Fin al Result Performing Organization Address [facility] Co de Phone Number [facility] [place] [address] * POCT glucose (05/28/2025 7:44 AM CDT) Glucose, POC 126 70 - 199 mg/dL Blood 05/28/2025 7:44 AM CDT 05/28/2025 7:44 AM CDT Addy Tapia MD LAB POCT ORDERABLES - DE VICE Final Result Performing Organization Address [facility] Co id Phone Number [facility] [place] [address] * POCT glucose (05/28/2025 4:16 AM CDT) Glucose, POC 187 70 - 199 mg/dL Blood 05/28/2025 4:16 AM CDT 05/28/2025 4:16 AM CDT Addy Tapia MD LAB POCT ORDERABLES - DE VICE Final Result Performing Organization Address [facility] Co de Phone Number [facility] [place] [address] * Potassium, whole blood (05/28/2025 2:01 AM CDT) [facility] Potassium, bld 3.5 3.3 - 4.9 mmol/L Blood 05/28/2025 2:01 AM CDT 05/28/2025 2:22 AM CDT Addy Tapia MD LAB BLOOD ORDERABLES Fin al Result Performing Organization Address [facility] de Phone Number [facility] [place] [address] * Tacrolimus level trough (05/28/2025 2:01 AM CDT) [facility] Tacrolimus trough 5.8 ng/mL Comment: Interpretive Data Testing performed by liquid chromatography-tandem mass spectrometry. Therapeutic concentrations vary depending on type of transplanted organ and time elapsed since transplant. Typical trough concentrations range from 5-15 ng/mL. This test was developed and its performance characteristics determined by the [facility] consistent with CLIA requirements. This test has not been cleared or approved by the [place] Food and Drug administration. Current interpretive data last reviewed 2020. Blood 05/28/2025 2:01 AM CDT 05/28/2025 2:28 AM CDT Zev Cowart MD PhD LAB BLOOD ORDERABLES Fi nal Result Performing Organization Address [facility] de Phone Number [facility] [place] [address] * (ABNORMAL) CBC without differential (05/28/2025 2:01 AM CDT) [facility] WBC 11.31(H) 3.80 - 9.90 K/cumm Hgb 8.2(L) 13.0 - 17.5 g/dL [facility] Hct 24.6(L) 38.9 - 50.3 % [facility] Plt 143(L) 150 - 400 K/cumm [facility] MPV 11.1 9.1 - 12.3 fL [facility] RBC 3.02(L) 4.30 - 5.80 M/cumm [facility] MCV 81.5 81.3 - 96.4 fL [facility] MCH 27.2 27.1 - 33.3 pg [facility] MCHC 33.3 32.3 - 35.7 g/dL [facility] RDW CV 14.8 11.1 - 14.9 % [facility] RDW SD 43.8 35.7 - 48.1 fL [facility] NRBC abs 0.00 0.00 - 0.01 K/cumm [facility] Blood 05/28/2025 2:01 AM CDT 05/28/2025 2:28 AM CDT Addy Tapia MD LAB BLOOD ORDERABLES Fin al Result Performing Organization Address [facility] de Phone Number [facility] [place] [address] * Phosphorus (05/28/2025 2:01 AM CDT) Phosphorus, pl 2.6 2.3 - 4.5 mg/dL Blood 05/28/2025 2:01 AM CDT 05/28/2025 2:28 AM CDT Addy Tapia MD LAB BLOOD ORDERABLES Fin al Result Performing Organization Address [facility] de Phone Number [facility] [place] [address] * Magnesium (05/28/2025 2:01 AM CDT) Magnesium 2.0 1.4 - 2.5 mg/dL Blood 05/28/2025 2:01 AM CDT 05/28/2025 2:28 AM CDT Addy Tapia MD LAB BLOOD ORDERABLES Fin al Result Performing Organization Address [facility]/State/ZIP Co de Phone Number [facility] [place] [address] * (ABNORMAL) Hepatic function panel (05/28/2025 2:01 AM CDT) Bilirubin, total 0.8 0.1 - 1.2 mg/dL Bilirubin, direct 0.5(H) 0.1 - 0.3 mg/dL [facility] Protein, pl 5.7(L) 6.5 - 8.5 g/dL [facility] Albumin 3.7 3.5 - 5.0 g/dL [facility] Alk phos 132(H) 40 - 130 Units/L [facility] ALT 21 7 - 55 Units/L [facility] AST 17 10 - 50 Units/L [facility] Blood 05/28/2025 2:01 AM CDT 05/28/2025 2:28 AM CDT Bar Gamble MD LAB BLOOD ORDERABLES Final R esult [facility] [place] [address] * (ABNORMAL) eGFR (05/27/2025 11:43 PM CDT) eGFR 34(L) >=60 mL/min/1. 73 m2 Comment: [...] ORDERABLES Fin al Result Performing Organization Address City/State/[facility] Co de Phone Number [facility] [place] [address] * (ABNORMAL) Basic metabolic panel (05/27/2025 11:43 PM CDT) Sodium 149(H) 135 - 145 mmol/L Potassium, pl 3.7 3.3 - 4.9 mmol/L [facility] Chloride 108 97 - 110 mmol/L [facility] CO2 29 22 - 32 mmol/L [facility] Anion gap 12 2 - 15 mmol/L [facility] BUN 68(H) 6 - 25 mg/dL [facility] Creatinine 2.18(H) 0.80 - 1.30 mg/dL [facility] Glucose 158 70 - 199 mg/dL [facility] Comment: Interpretive Data Fasting glucose >/= 126 [...] 2022. Calcium 9.1 8.5 - 10.3 mg/dL [facility] Blood 05/27/2025 11:4 3 PM CDT 05/28/2025 12:08 AM CDT Addy Tapia MD LAB BLOOD ORDERABLES Fin al Result [facility] [place] [address] * POCT glucose (05/27/2025 11:00 PM CDT) Glucose, POC 120 70 - 199 mg/dL Blood 05/27/2025 11:0 0 PM CDT 05/27/2025 11:00 PM CDT Addy Tapia MD LAB POCT ORDERABLES - DE VICE Final Result Performing Organization Address City/[facility] Co de Phone Number DULCE MARIA [facility] [place] [address] * XR Chest 1 View (05/27/2025 8:57 PM CDT) Anatomical Region Laterality Modality Body, Chest N/A Computed Radiogr aphy 05/28/2025 9:57 AM CDT Impressions 05/28/2025 12:45 PM CDT The current study is compared with the prior radiograph dated 05/26/2025 at 6:39 PM Median sternotomy plates in place. Mediastinal and pericardial drains in place. Interval removal of Packwood-Jayne catheter. Gastric tube courses below the hemidiaphragm and terminates below the [id number]. A right internal jugular catheter is in [...] pericardial drains in place. Interval removal of [place]-Jayne catheter. Gastric tube courses below the hemidiaphragm and terminates below the [id number]. A right internal jugular catheter is in [...] DE VICE Final Result Performing Organization Address [facility] Phone Number [facility] [place] [address] * (ABNORMAL) POCT glucose (05/27/2025 5:26 PM CDT) Glucose, POC 207(H) 70 - 199 mg/dL Comment:Glu2: RN/MD Notified Glucose comment 1 Glu2: RN/MD Notified [facility] Blood 05/27/2025 5:26 PM CDT 05/27/2025 5:26 PM CDT Addy Tapia MD LAB POCT ORDERABLES - DE VICE Final Result Performing Organization Address [facility] Co id Phone Number [facility] [place] [address] * (ABNORMAL) eGFR (05/27/2025 5:21 PM CDT) Pathologist [facility] eGFR 32(L) >=60 mL/min/1. 73 m2 Comment: [...] CDT Addy Tapia MD LAB BLOOD ORDERABLES [facility] al Result [facility] [place] [address] * (ABNORMAL) Basic metabolic panel (05/27/2025 5:21 PM CDT) Pathologist [facility] Sodium 149(H) 135 - 145 mmol/L Potassium, pl 4.0 3.3 - 4.9 mmol/L [facility] Chloride 108 97 - 110 mmol/L [facility] CO2 29 22 - 32 mmol/L [facility] Anion gap 12 2 - 15 mmol/L [facility] BUN 71(H) 6 - 25 mg/dL [facility] Creatinine 2.27(H) 0.80 - 1.30 mg/dL [facility] Glucose 241(H) 70 - 199 mg/dL [facility] Comment: Interpretive Data Fasting glucose >/= 126 [...] 2022. Calcium 9.5 8.5 - 10.3 mg/dL [facility] Blood 05/27/2025 5:21 PM CDT 05/27/2025 5:55 PM CDT Addy Tapia MD LAB BLOOD ORDERABLES Fin al Result [facility] [place] [address] * POCT glucose (05/27/2025 12:03 PM CDT) Pathologist [facility] Glucose, POC 194 70 - 199 mg/dL Blood 05/27/2025 12:0 3 PM CDT 05/27/2025 12:03 PM CDT Addy Tapia MD LAB POCT ORDERABLES - DE VICE Final Result Performing Organization Address City/[facility]/ZIP Co de Phone Number [facility] [place] [address] * (ABNORMAL) eGFR (05/27/2025 9:55 AM CDT) Pathologist [facility] eGFR 30(L) >=60 mL/min/1. 73 m2 Comment: [...] CDT Addy Tapia MD LAB BLOOD ORDERABLES [facility] al Result [facility] [place] [address] * (ABNORMAL) Basic metabolic panel (05/27/2025 9:55 AM CDT) Sodium 150(H) 135 - 145 mmol/L Potassium, pl 3.9 3.3 - 4.9 mmol/L [facility] Comment:Hemolyzed; Potassium value may be falsely elevated by as much as 0.3-0.5 mmol/L. Suggest redraw and reanalysis. Chloride 107 97 - 110 mmol/L [facility] CO2 29 22 - 32 mmol/L [facility] Anion gap 14 2 - 15 mmol/L [facility] BUN 77(H) 6 - 25 mg/dL [facility] Creatinine 2.37(H) 0.80 - 1.30 mg/dL [facility] Glucose 157 70 - 199 mg/dL [facility] Comment: Interpretive Data Fasting glucose >/= 126 [...] 2022. Calcium 9.5 8.5 - 10.3 mg/dL [facility] Blood 05/27/2025 9:55 AM CDT 05/27/2025 10:26 AM CDT Addy Tapia MD LAB BLOOD ORDERABLES Fin al Result Performing Organization Address City/[facility]/ZIP Co de Phone Number [facility] [place] [address] * POCT glucose (05/27/2025 7:36 AM CDT) Glucose, POC 155 70 - 199 mg/dL Comment:Glu2: RN/MD Notified Glucose comment 1 Glu2: RN/MD Notified [facility] Blood 05/27/2025 7:36 AM CDT 05/27/2025 7:36 AM CDT Addy Tapia MD LAB POCT ORDERABLES - DE VICE Final Result Performing Organization Address City/[facility]/ZIP Co de Phone Number [facility] [place] [address] * Oxyhemoglobin, pulmonary artery (05/27/2025 4:34 AM CDT) Oxyhemoglobin, PA 73.9 % Comment: Interpretive Data No reference range established. Current interpretive data was last revised 2020. Blood 05/27/2025 4:34 AM CDT 05/27/2025 5:58 AM CDT Addy Tapia MD LAB BLOOD ORDERABLES Fin al Result Performing Organization Address [facility] Co de Phone Number [facility] [address] * (ABNORMAL) Hemoglobin total, pulmonary artery (05/27/2025 4:34 AM CDT) Hemoglobin total, PA 8.6(L) 13.0 - 17.5 g/dL Blood 05/27/2025 4:34 AM CDT 05/27/2025 5:58 AM CDT us Zev Cowart MD PhD LAB BLOOD ORDERABLES Fi nal Result Performing Organization Address [facility] de Phone Number [facility] [address] * Potassium, whole blood (05/27/2025 4:34 AM CDT) Potassium, bld 3.8 3.3 - 4.9 mmol/L Blood 05/27/2025 4:34 AM CDT 05/27/2025 5:58 AM CDT us Bar Gamble MD LAB BLOOD ORDERABLES Final R esult Performing Organization Address [facility] Co de Phone Number [facility] [place] [address] * Tacrolimus level trough (05/27/2025 4:34 AM CDT) Tacrolimus trough 5.6 ng/mL Comment: Interpretive Data Testing performed by liquid chromatography-tandem mass spectrometry. Therapeutic concentrations vary depending on type of transplanted organ and time elapsed since transplant. Typical trough concentrations range from 5-15 ng/mL. This test was developed and its performance characteristics determined by the [facility] consistent with CLIA requirements. This test has not been cleared or approved by the [place] Food and Drug administration. Current interpretive data last reviewed 2020. Blood 05/27/2025 4:34 AM CDT 05/27/2025 6:07 AM CDT Zev Cowart MD PhD LAB BLOOD ORDERABLES Fi nal Result Performing Organization Address [facility] Co de Phone Number [facility] [place] [address] * Lactate, whole blood (05/27/2025 4:34 AM CDT) Pathologist [facility] Lactate, bld 0.9 0.7 - 2.0 mmol/L Blood 05/27/2025 4:34 AM CDT 05/27/2025 5:58 AM CDT Zev Cowart MD PhD LAB BLOOD ORDERABLES Fi nal Result Performing Organization Address [facility] de Phone Number [facility] [place] [address] * (ABNORMAL) Blood gas, arterial (05/27/2025 4:34 AM CDT) pH, Art 7.44 7.35 - 7.45 PCO2, Arterial 42 35 - 45 mmHg [facility] PO2, Arterial 82(L) 83 - 108 mmHg [facility] HCO3 Art (Calculated) 30 20 - 30 mmol/L [facility] BE, art 4 mmol/L [facility] Comment: Interpretive Data No Reference Range Established Current Interpretive Data was last revised on 2017 O2 Sat Art (Measured) 97(H) 90 - 95 % [facility] Blood 05/27/2025 4:34 AM CDT 05/27/2025 5:58 AM CDT Addy Tapia MD LAB BLOOD ORDERABLES Fin al Result Performing Organization Address [facility] Co de Phone Number [facility] [place] [employer] [place] [address] * POCT glucose (05/27/2025 3:24 AM CDT) Glucose, POC 169 70 - 199 mg/dL Blood 05/27/2025 3:24 AM CDT 05/27/2025 3:24 AM CDT Addy Tapia MD LAB POCT ORDERABLES - DE VICE Final Result Performing Organization Address [facility] Co id Phone Number [facility] [place] [address] * Antibody identification (05/27/2025 1:49 AM CDT) Pathologist [facility] Antibody ID 1 Anti-CD38 Comment:Panreactive -CD38 on reagent RBCs reacting with anti-CD38 therapy. DTT treatment removes cell surface CD38 and allows detection of common clinically significant antibodies except those against Dilma antigens. TRANSFUSION 2015;[id number] Blood 05/27/2025 1:49 AM CDT 05/27/2025 1:49 AM CDT Libia Suarez NP LAB BLOOD BANK TEST ORDERABLE S Final Result Performing Organization Address [facility] Co de Phone Number [facility] [place] [address] * POCT glucose (05/26/2025 11:58 PM CDT) Glucose, POC 183 70 - 199 mg/dL Blood 05/26/2025 11:5 8 PM CDT 05/26/2025 11:58 PM CDT Addy Tapia MD LAB POCT ORDERABLES - DE VICE Final Result Performing Organization Address [facility] Co de Phone Number [facility] [place] [address] * Potassium, whole blood (05/26/2025 11:53 PM CDT) Potassium, bld 3.5 3.3 - 4.9 mmol/L Blood 05/26/2025 11:5 3 PM CDT 05/27/2025 12:07 AM CDT Addy Tapia MD LAB BLOOD ORDERABLES Fin al Result Performing Organization Address [facility] de Phone Number [facility] [place] [employer] [place] [address] * (ABNORMAL) eGFR (05/26/2025 11:53 PM CDT) [...] 3 PM CDT 05/27/2025 12:35 AM CDT Addy Tapia MD LAB BLOOD ORDERABLES Fin al Result Performing Organization Address City/[facility]/ZIP Co de Phone Number [facility] [place] [address] * (ABNORMAL) CBC without differential (05/26/2025 11:53 PM CDT) WBC 11.13(H) 3.80 - 9.90 K/cumm Hgb 8.3(L) 13.0 - 17.5 g/dL [facility] Hct 25.8(L) 38.9 - 50.3 % [facility] Plt 137(L) 150 - 400 K/cumm [facility] MPV 11.3 9.1 - 12.3 fL [facility] RBC 3.12(L) 4.30 - 5.80 M/cumm [facility] MCV 82.7 81.3 - 96.4 fL [facility] MCH 26.6(L) 27.1 - 33.3 pg [facility] MCHC 32.2(L) 32.3 - 35.7 g/dL [facility] RDW CV 15.1(H) 11.1 - 14.9 % [facility] RDW SD 45.7 35.7 - 48.1 fL [facility] NRBC abs 0.00 0.00 - 0.01 K/cumm [facility] Blood 05/26/2025 11:5 3 PM CDT 05/27/2025 12:23 AM CDT Addy Tapia MD LAB BLOOD ORDERABLES Fin al Result [facility] [place] [address] * (ABNORMAL) Type and screen (05/26/2025 11:53 PM CDT) ABO Rh O Positive Poppy, indirect Positive(A) [facility] Blood 05/26/2025 11:5 3 PM CDT 05/27/2025 12:25 AM CDT Narrative [facility] - 05/27/2025 1:49 AM CDT Has the patient had Daratumumab or Isatuximab in the past 6 months?->Unknown Libia Suarez NP LAB BLOOD BANK TEST ORDERABLE S Final Result Performing Organization Address [facility] Co de Phone Number [facility] [place] [address] * Phosphorus (05/26/2025 11:53 PM CDT) Pathologist [facility] Phosphorus, pl 4.3 2.3 - 4.5 mg/dL Blood 05/26/2025 11:5 3 PM CDT 05/27/2025 12:27 AM CDT Addy Tapia MD LAB BLOOD ORDERABLES Fin al Result Performing Organization Address [facility] Co de Phone Number [facility] [place] [address] * Magnesium (05/26/2025 11:53 PM CDT) [facility] Magnesium 2.4 1.4 - 2.5 mg/dL Blood 05/26/2025 11:5 3 PM CDT 05/27/2025 12:27 AM CDT Addy Tapia MD LAB BLOOD ORDERABLES Fin al Result Performing Organization Address [facility] de Phone Number [facility] [place] [address] * (ABNORMAL) Hepatic function panel (05/26/2025 11:53 PM CDT) Bilirubin, total 0.8 0.1 - 1.2 mg/dL Bilirubin, direct 0.4(H) 0.1 - 0.3 mg/dL [facility] Protein, pl 6.1(L) 6.5 - 8.5 g/dL [facility] Albumin 4.0 3.5 - 5.0 g/dL [facility] Alk phos 141(H) 40 - 130 Units/L [facility] ALT 25 7 - 55 Units/L [facility] AST 25 10 - 50 Units/L [facility] Blood 05/26/2025 11:5 3 PM CDT 05/27/2025 12:27 AM CDT us Bar Gamble MD LAB BLOOD ORDERABLES Final R esult Performing Organization Address [facility] Co de Phone Number [facility] Department [place] [address] * (ABNORMAL) Basic metabolic panel (05/26/2025 11:53 PM CDT) Sodium 151(H) 135 - 145 mmol/L Potassium, pl 3.8 3.3 - 4.9 mmol/L [facility] Chloride 109 97 - 110 mmol/L [facility] CO2 27 22 - 32 mmol/L [facility] Anion gap 15 2 - 15 mmol/L [facility] BUN 81(H) 6 - 25 mg/dL [facility] Creatinine 2.69(H) 0.80 - 1.30 mg/dL [facility] Glucose 176 70 - 199 mg/dL [facility] Comment: Interpretive Data Fasting glucose >/= 126 [...] 2022. Calcium 9.3 8.5 - 10.3 mg/dL [facility] Blood 05/26/2025 11:5 3 PM CDT 05/27/2025 12:27 AM CDT Addy Tapia MD LAB BLOOD ORDERABLES Fin al Result Performing Organization Address [facility] Co de Phone Number [facility] Department [place] [address] * POCT glucose (05/26/2025 7:51 PM CDT) Glucose, POC 142 70 - 199 mg/dL Blood 05/26/2025 7:51 PM CDT 05/26/2025 7:51 PM CDT Addy Jamar Tapia MD LAB POCT ORDERABLES - DE VICE Final Result [facility] [place] [address] * XR Chest 1 View (05/26/2025 6:43 PM CDT) Anatomical Region Laterality Modality Body, Chest N/A Digital Radiogra phy 05/27/2025 9:07 AM CDT Impressions 05/27/2025 9:07 AM CDT Sternal fixation plates again seen. Right internal jugular Packwood-Jayne catheter tip over main pulmonary artery. Right [...] fixation plates again seen. Right internal jugular Packwood-Jayne catheter tip over main pulmonary artery. Right [...] Potassium, whole blood (05/26/2025 3:52 PM CDT) Potassium, bld 3.9 3.3 - 4.9 mmol/L Blood 05/26/2025 3:52 PM CDT 05/26/2025 4:04 PM CDT Bar Gamble MD LAB BLOOD ORDERABLES Final R esult [facility] [place] [address] * (ABNORMAL) eGFR (05/26/2025 3:52 PM CDT) [...] ORDERABLES Fin al Result Performing Organization Address City/[facility]/ZIP Co de Phone Number [facility] Department [place] [address] * (ABNORMAL) Basic metabolic panel (05/26/2025 3:52 PM CDT) Pathologist [facility] Sodium 150(H) 135 - 145 mmol/L Potassium, pl 4.2 3.3 - 4.9 mmol/L [facility] Chloride 107 97 - 110 mmol/L [facility] CO2 26 22 - 32 mmol/L [facility] Anion gap 17(H) 2 - 15 mmol/L [facility] BUN 87(H) 6 - 25 mg/dL [facility] Creatinine 2.86(H) 0.80 - 1.30 mg/dL [facility] Glucose 168 70 - 199 mg/dL [facility] Comment: Interpretive Data Fasting glucose >/= 126 [...] 2022. Calcium 9.8 8.5 - 10.3 mg/dL [facility] Blood 05/26/2025 3:52 PM CDT 05/26/2025 4:10 PM CDT Addy Tapia MD LAB BLOOD ORDERABLES Fin al Result Performing Organization Address [facility] Co de Phone Number [facility] [place] [address] * POCT glucose (05/26/2025 3:50 PM CDT) Glucose, POC 171 70 - 199 mg/dL Blood 05/26/2025 3:50 PM CDT 05/26/2025 3:50 PM CDT Addy Tapia MD LAB POCT ORDERABLES - DE VICE Final Result Performing Organization Address [facility] Co de Phone Number [facility] [place] [address] * Oxyhemoglobin, pulmonary artery (05/26/2025 2:22 PM CDT) Pathologist [facility] Oxyhemoglobin, PA 83.2 % Comment: Interpretive Data No reference range established. Current interpretive data was last revised 2020. Blood 05/26/2025 2:22 PM CDT 05/26/2025 2:27 PM CDT Addy Tapia MD LAB BLOOD ORDERABLES Fin al Result Performing Organization Address [facility] Co de Phone Number [facility] [place] [address] * (ABNORMAL) Hemoglobin total, pulmonary artery (05/26/2025 2:22 PM CDT) Hemoglobin total, PA 8.4(L) 13.0 - 17.5 g/dL Blood 05/26/2025 2:22 PM CDT 05/26/2025 2:27 PM CDT Zev Cowart MD PhD LAB BLOOD ORDERABLES Fi nal Result Performing Organization Address [facility] Co de Phone Number [facility] [place] [address] * (ABNORMAL) Blood gas, arterial (05/26/2025 2:22 PM CDT) pH, Art 7.41 7.35 - 7.45 PCO2, Arterial 35 35 - 45 mmHg [facility] PO2, Arterial 137(H) 83 - 108 mmHg [facility] HCO3 Art (Calculated) 23 20 - 30 mmol/L [facility] BE, art -2 mmol/L [facility] Comment: Interpretive Data No Reference Range Established Current Interpretive Data was last revised on 2017 O2 Sat Art (Measured) 98(H) 90 - 95 % [facility] Blood 05/26/2025 2:22 PM CDT 05/26/2025 2:27 PM CDT Result [facility] Addy Tapia MD LAB BLOOD ORDERABLES Fin al Result Performing Organization Address City/[facility] Co de Phone Number [facility] Department [place] [address] * Oxyhemoglobin, pulmonary artery (05/26/2025 12:39 PM CDT) Pathologist [facility] Oxyhemoglobin, PA 68.2 % Comment: Interpretive Data No reference range established. Current interpretive data was last revised 2020. Blood 05/26/2025 12:3 9 PM CDT 05/26/2025 12:50 PM CDT Result [facility] Addy Tapia MD LAB BLOOD ORDERABLES Fin al Result Performing Organization Address City/[facility]/ZIP Co de Phone Number [facility] Department [place] [address] * (ABNORMAL) Hemoglobin total, pulmonary artery (05/26/2025 12:39 PM CDT) Hemoglobin total, PA 8.6(L) 13.0 - 17.5 g/dL Blood 05/26/2025 12:3 9 PM CDT 05/26/2025 12:50 PM CDT Result [facility] Zev Cowart MD PhD LAB BLOOD ORDERABLES Fi nal Result Performing Organization Address [facility] Co de Phone Number [facility] Department [place] [address] * Potassium, whole blood (05/26/2025 12:39 PM CDT) Potassium, bld 3.3 3.3 - 4.9 mmol/L Blood 05/26/2025 12:3 9 PM CDT 05/26/2025 12:50 PM CDT Bar Gamble MD LAB BLOOD ORDERABLES Final R esult Performing Organization Address [facility] Co de Phone Number [facility] [place] [address] * (ABNORMAL) Blood gas, arterial (05/26/2025 12:39 PM CDT) pH, Art 7.40 7.35 - 7.45 PCO2, Arterial 34(L) 35 - 45 mmHg [facility] PO2, Arterial 146(H) 83 - 108 mmHg [facility] HCO3 Art (Calculated) 22 20 - 30 mmol/L [facility] BE, art -3 mmol/L [facility] Comment: Interpretive Data No Reference Range Established Current Interpretive Data was last revised on 2017 O2 Sat Art (Measured) 99(H) 90 - 95 % [facility] Blood 05/26/2025 12:3 9 PM CDT 05/26/2025 12:50 PM CDT Addy Tapia MD LAB BLOOD ORDERABLES Fin al Result Performing Organization Address [facility] Co de Phone Number [facility] [place] [address] * POCT glucose (05/26/2025 12:30 PM CDT) Glucose, POC 111 70 - 199 mg/dL Blood 05/26/2025 12:3 0 PM CDT 05/26/2025 12:30 PM CDT Addy Tapia MD LAB POCT ORDERABLES - DE VICE Final Result Performing Organization Address [facility] Co de Phone Number [facility] [place] [address] * (ABNORMAL) eGFR (05/26/2025 9:03 AM CDT) [...] BLOOD ORDERABLES Fin al Result [facility] [place] [address] * POCT glucose (05/26/2025 9:03 AM CDT) Glucose, POC 111 70 - 199 mg/dL Blood 05/26/2025 9:03 AM CDT 05/26/2025 9:03 AM CDT Addy Tapia MD LAB POCT ORDERABLES - DE VICE Final Result [facility] [place] [address] * (ABNORMAL) Basic metabolic panel (05/26/2025 9:03 AM CDT) [facility] Sodium 147(H) 135 - 145 mmol/L Potassium, pl 3.8 3.3 - 4.9 mmol/L [facility] Chloride 106 97 - 110 mmol/L [facility] CO2 24 22 - 32 mmol/L [facility] Anion gap 17(H) 2 - 15 mmol/L [facility] BUN 89(H) 6 - 25 mg/dL [facility] Creatinine 2.79(H) 0.80 - 1.30 mg/dL [facility] Glucose 121 70 - 199 mg/dL [facility] Comment: Interpretive Data Fasting glucose >/= 126 [...] 2022. Calcium 9.3 8.5 - 10.3 mg/dL [facility] Blood 05/26/2025 9:03 AM CDT 05/26/2025 9:24 AM CDT Addy Tapia MD LAB BLOOD ORDERABLES Fin al Result Performing Organization Address City/[facility]/ZIP Co de Phone Number [facility] Department [place] [address] * POCT glucose (05/26/2025 7:38 AM CDT) Glucose, POC 114 70 - 199 mg/dL Blood 05/26/2025 7:38 AM CDT 05/26/2025 7:38 AM CDT Addy Tapia MD LAB POCT ORDERABLES - DE VICE Final Result Performing Organization Address City/[facility] Co de Phone Number [facility] [place] [address] * POCT glucose (05/26/2025 7:06 AM CDT) Glucose, POC 114 70 - 199 mg/dL Blood 05/26/2025 7:06 AM CDT 05/26/2025 7:06 AM CDT Addy Tapia MD LAB POCT ORDERABLES - DE VICE Final Result Performing Organization Address [facility] Co de Phone Number [facility] [place] [address] * POCT glucose (05/26/2025 6:06 AM CDT) Glucose, POC 113 70 - 199 mg/dL Blood 05/26/2025 6:06 AM CDT 05/26/2025 6:06 AM CDT Addy Tapia MD LAB POCT ORDERABLES - DE VICE Final Result Performing Organization Address [facility] [place] [address] * POCT glucose (05/26/2025 5:06 AM CDT) Glucose, POC 111 70 - 199 mg/dL Blood 05/26/2025 5:06 AM CDT 05/26/2025 5:06 AM CDT Addy Tapia MD LAB POCT ORDERABLES - DE VICE Final Result Performing Organization Address [facility] Phone Number [facility] Department [place] [address] * Tacrolimus level trough (05/26/2025 5:04 AM CDT) Tacrolimus trough 7.6 ng/mL Comment: Interpretive Data Testing performed by liquid chromatography-tandem mass spectrometry. Therapeutic concentrations vary depending on type of transplanted organ and time elapsed since transplant. Typical trough concentrations range from 5-15 ng/mL. This test was developed and its performance characteristics determined by the [facility] consistent with CLIA requirements. This test has not been cleared or approved by the [place] Food and Drug administration. Current interpretive data last reviewed 2020. Blood 05/26/2025 5:04 AM CDT 05/26/2025 5:20 AM CDT Zev Cowart MD PhD LAB BLOOD ORDERABLES Fi nal Result Performing Organization Address [facility] Phone Number [facility] Department [place] [address] * Potassium, whole blood (05/26/2025 4:04 AM CDT) Pathologist [facility] Potassium, bld 4.1 3.3 - 4.9 mmol/L Blood 05/26/2025 4:04 AM CDT 05/26/2025 4:11 AM CDT us Bar Gamble MD LAB BLOOD ORDERABLES Final R esult Performing Organization Address [facility] de Phone Number [facility] Department [place] [address] * POCT glucose (05/26/2025 4:02 AM CDT) Glucose, POC 105 70 - 199 mg/dL Blood 05/26/2025 4:02 AM CDT 05/26/2025 4:02 AM CDT Addy Tapia MD LAB POCT ORDERABLES - DE VICE Final Result Performing Organization Address [facility] Co de Phone Number [facility] [place] [address] * POCT glucose (05/26/2025 3:11 AM CDT) Glucose, POC 94 70 - 199 mg/dL Blood 05/26/2025 3:11 AM CDT 05/26/2025 3:11 AM CDT Addy Tapia MD LAB POCT ORDERABLES - DE VICE Final Result Performing Organization Address [facility] Co de Phone Number [facility] [place] [address] * POCT glucose (05/26/2025 2:10 AM CDT) Glucose, POC 110 70 - 199 mg/dL Blood 05/26/2025 2:10 AM CDT 05/26/2025 2:10 AM CDT Addy Tapia MD LAB POCT ORDERABLES - DE VICE Final Result Performing Organization Address [facility] [place] [address] * POCT glucose (05/26/2025 1:05 AM CDT) Glucose, POC 101 70 - 199 mg/dL Blood 05/26/2025 1:05 AM CDT 05/26/2025 1:05 AM CDT Addy Tapia MD LAB POCT ORDERABLES - DE VICE Final Result Performing Organization Address [facility] de Phone Number [facility] [place] [address] * Oxyhemoglobin, central venous (05/26/2025 12:04 AM CDT) Oxyhemoglobin, CV 78.7 % Comment: Interpretive Data No reference range established. Current interpretive data was last revised 2020. Blood 05/26/2025 12:0 4 AM CDT 05/26/2025 12:17 AM CDT Addy Tapia MD LAB BLOOD ORDERABLES Fin al Result Performing Organization Address [facility] Phone Number [facility] Department [place] [address] * Oxyhemoglobin, pulmonary artery (05/26/2025 12:04 AM CDT) Oxyhemoglobin, PA 79.9 % Comment: Interpretive Data No reference range established. Current interpretive data was last revised 2020. Blood 05/26/2025 12:0 4 AM CDT 05/26/2025 12:17 AM CDT Addy Tapia MD LAB BLOOD ORDERABLES Fin al Result Performing Organization Address [facility] de Phone Number [facility] [place] [address] * Potassium, whole blood (05/26/2025 12:04 AM CDT) Potassium, bld 3.6 3.3 - 4.9 mmol/L Blood 05/26/2025 12:0 4 AM CDT 05/26/2025 12:17 AM CDT Addy Tapia MD LAB BLOOD ORDERABLES Fin al Result Performing Organization Address City/[facility]/ZIP Co de Phone Number [facility] [place] [address] * (ABNORMAL) eGFR (05/26/2025 12:04 AM CDT) [...] BLOOD ORDERABLES Fin al Result [facility] [place] [address] * (ABNORMAL) Lactate, whole blood (05/26/2025 12:04 AM CDT) Lactate, bld 0.6(L) 0.7 - 2.0 mmol/L Blood 05/26/2025 12:0 4 AM CDT 05/26/2025 12:17 AM CDT us Zev Cowart MD PhD LAB BLOOD ORDERABLES Fi nal Result Performing Organization Address [facility] Co de Phone Number [facility] [place] [address] * (ABNORMAL) CBC without differential (05/26/2025 12:04 AM CDT) WBC 12.99(H) 3.80 - 9.90 K/cumm Hgb 8.7(L) 13.0 - 17.5 g/dL [facility] Hct 25.8(L) 38.9 - 50.3 % [facility] Plt 148(L) 150 - 400 K/cumm [facility] MPV 10.7 9.1 - 12.3 fL [facility] RBC 3.18(L) 4.30 - 5.80 M/cumm [facility] MCV 81.1(L) 81.3 - 96.4 fL [facility] MCH 27.4 27.1 - 33.3 pg [facility] MCHC 33.7 32.3 - 35.7 g/dL [facility] RDW CV 15.2(H) 11.1 - 14.9 % [facility] RDW SD 45.3 35.7 - 48.1 fL [facility] NRBC abs 0.00 0.00 - 0.01 K/cumm [facility] Blood 05/26/2025 12:0 4 AM CDT 05/26/2025 12:24 AM CDT Addy Tapia MD LAB BLOOD ORDERABLES Fin al Result Performing Organization Address [facility] Co de Phone Number [facility] Department [place] [address] * (ABNORMAL) Phosphorus (05/26/2025 12:04 AM CDT) Phosphorus, pl 5.9(H) 2.3 - 4.5 mg/dL Blood 05/26/2025 12:0 4 AM CDT 05/26/2025 12:22 AM CDT Addy Tapia MD LAB BLOOD ORDERABLES Fin al Result Performing Organization Address [facility] de Phone Number [facility] [place] [address] * (ABNORMAL) Magnesium (05/26/2025 12:04 AM CDT) Magnesium 2.7(H) 1.4 - 2.5 mg/dL Blood 05/26/2025 12:0 4 AM CDT 05/26/2025 12:22 AM CDT Addy Tapia MD LAB BLOOD ORDERABLES Fin al Result Performing Organization Address [facility] Phone Number [facility] [place] [address] * (ABNORMAL) Blood gas, arterial (05/26/2025 12:04 AM CDT) pH, Art 7.42 7.35 - 7.45 PCO2, Arterial 38 35 - 45 mmHg [facility] PO2, Arterial 100 83 - 108 mmHg [facility] HCO3 Art (Calculated) 25 20 - 30 mmol/L [facility] BE, art 0 mmol/L [facility] Comment: Interpretive Data No Reference Range Established Current Interpretive Data was last revised on 2017 O2 Sat Art (Measured) 98(H) 90 - 95 % [facility] Blood 05/26/2025 12:0 4 AM CDT 05/26/2025 12:17 AM CDT Addy Tapia MD LAB BLOOD ORDERABLES Fin al Result Performing Organization Address [facility] de Phone Number [facility] [place] [address] * (ABNORMAL) Hepatic function panel (05/26/2025 12:04 AM CDT) [facility] Bilirubin, total 0.8 0.1 - 1.2 mg/dL Bilirubin, direct 0.5(H) 0.1 - 0.3 mg/dL [facility] Protein, pl 6.0(L) 6.5 - 8.5 g/dL [facility] Albumin 4.0 3.5 - 5.0 g/dL [facility] Alk phos 151(H) 40 - 130 Units/L [facility] ALT 32 7 - 55 Units/L [facility] AST 30 10 - 50 Units/L [facility] Blood 05/26/2025 12:0 4 AM CDT 05/26/2025 12:22 AM CDT Bar Gamble MD LAB BLOOD ORDERABLES Final R esult [facility] [place] [address] * (ABNORMAL) Basic metabolic panel (05/26/2025 12:04 AM CDT) [facility] Sodium 145 135 - 145 mmol/L Potassium, pl 3.5 3.3 - 4.9 mmol/L [facility] Chloride 106 97 - 110 mmol/L [facility] CO2 26 22 - 32 mmol/L [facility] Anion gap 13 2 - 15 mmol/L [facility] BUN 90(H) 6 - 25 mg/dL [facility] Creatinine 2.92(H) 0.80 - 1.30 mg/dL [facility] Glucose 106 70 - 199 mg/dL [facility] Comment: Interpretive Data Fasting glucose >/= 126 [...] 2022. Calcium 9.5 8.5 - 10.3 mg/dL [facility] Blood 05/26/2025 12:0 4 AM CDT 05/26/2025 12:22 AM CDT Addy Tapia MD LAB BLOOD ORDERABLES Fin al Result Performing Organization Address City/[facility]/ZIP Co de Phone Number [facility] [place] [address] * POCT glucose (05/25/2025 11:59 PM CDT) Glucose, POC 105 70 - 199 mg/dL Blood 05/25/2025 11:5 9 PM CDT 05/25/2025 11:59 PM CDT Addy Tapia MD LAB POCT ORDERABLES - DE VICE Final Result Performing Organization Address [facility] Co de Phone Number [facility] [place] [address] * XR Abdomen Ap 1 Vw (05/25/2025 [...] DE VICE Final Result Performing Organization Address [facility] Co de Phone Number [facility] Department [place] [address] * POCT glucose (05/25/2025 8:46 PM CDT) Glucose, POC 119 70 - 199 mg/dL Blood 05/25/2025 8:46 PM CDT 05/25/2025 8:46 PM CDT Addy Tapia MD LAB POCT ORDERABLES - DE VICE Final Result Performing Organization Address [facility] Co de Phone Number [facility] Department [place] [address] * XR Chest 1 View (05/25/2025 8:10 [...] tip of the right internal jugular approach Packwood-Jayne catheter projects over the main pulmonary artery. [...] tip of the right internal jugular approach Packwood-Jayne catheter projects over the main pulmonary artery. [...] ORDERABLES - DE VICE Final Result [facility] [place] [address] * Potassium, whole blood (05/25/2025 8:08 PM CDT) Potassium, bld 3.8 3.3 - 4.9 mmol/L Blood 05/25/2025 8:08 PM CDT 05/25/2025 8:22 PM CDT Bar Gamble MD LAB BLOOD ORDERABLES Final R esult Performing Organization Address City/[facility]/ZIP Co de Phone Number [facility] [place] [address] * POCT glucose (05/25/2025 7:01 PM CDT) Glucose, POC 114 70 - 199 mg/dL Blood 05/25/2025 7:01 PM CDT 05/25/2025 7:01 PM CDT Addy Tapia MD LAB POCT ORDERABLES - DE VICE Final Result Performing Organization Address City/[facility]/ZIP Co de Phone Number [facility] [place] [employer] [place] [address] * POCT glucose (05/25/2025 6:20 PM CDT) Glucose, POC 123 70 - 199 mg/dL Blood 05/25/2025 6:20 PM CDT 05/25/2025 6:20 PM CDT Addy Tapia MD LAB POCT ORDERABLES - DE VICE Final Result Performing Organization Address City/[facility]/ZIP Co de Phone Number [facility] [place] [address] * POCT glucose (05/25/2025 5:18 PM CDT) Glucose, POC 100 70 - 199 mg/dL Blood 05/25/2025 5:18 PM CDT 05/25/2025 5:18 PM CDT Addy Tapia MD LAB POCT ORDERABLES - DE VICE Final Result Performing Organization Address [facility] Co de Phone Number [facility] Department [place] [address] * (ABNORMAL) Hemoglobin total, pulmonary artery (05/25/2025 4:37 PM CDT) [facility] Hemoglobin total, PA 9.3(L) 13.0 - 17.5 g/dL Blood 05/25/2025 4:37 PM CDT 05/25/2025 4:48 PM CDT Bar Gamble MD LAB BLOOD ORDERABLES Final R esult Performing Organization Address [facility] Co de Phone Number [facility] Department [place] [address] * Potassium, whole blood (05/25/2025 4:37 PM CDT) [facility] Potassium, bld 3.8 3.3 - 4.9 mmol/L Blood 05/25/2025 4:37 PM CDT 05/25/2025 4:48 PM CDT Addy Tapia MD LAB BLOOD ORDERABLES Fin al Result Performing Organization Address [facility] Co de Phone Number [facility] Department [place] [address] * (ABNORMAL) eGFR (05/25/2025 4:37 PM CDT) [...] CDT Addy Tapia MD LAB BLOOD ORDERABLES [facility] al Result [facility] [place] [address] * (ABNORMAL) Basic metabolic panel (05/25/2025 4:37 PM CDT) [facility] Sodium 142 135 - 145 mmol/L Potassium, pl 3.7 3.3 - 4.9 mmol/L [facility] Chloride 103 97 - 110 mmol/L [facility] CO2 25 22 - 32 mmol/L [facility] Anion gap 14 2 - 15 mmol/L [facility] BUN 90(H) 6 - 25 mg/dL [facility] Creatinine 2.73(H) 0.80 - 1.30 mg/dL [facility] Glucose 122 70 - 199 mg/dL [facility] Comment: Interpretive Data Fasting glucose >/= 126 [...] 2022. Calcium 8.9 8.5 - 10.3 mg/dL [facility] Blood 05/25/2025 4:37 PM CDT 05/25/2025 4:50 PM CDT Addy Tapia MD LAB BLOOD ORDERABLES Fin al Result Performing Organization Address [facility] Co de Phone Number [facility] Department [place] [address] * POCT glucose (05/25/2025 4:15 PM CDT) Glucose, POC 115 70 - 199 mg/dL Blood 05/25/2025 4:15 PM CDT 05/25/2025 4:15 PM CDT Addy Tapia MD LAB POCT ORDERABLES - DE VICE Final Result Performing Organization Address [facility] Co de Phone Number [facility] [place] [address] * POCT glucose (05/25/2025 3:18 PM CDT) Glucose, POC 130 70 - 199 mg/dL Blood 05/25/2025 3:18 PM CDT 05/25/2025 3:18 PM CDT Addy Tapia MD LAB POCT ORDERABLES - DE VICE Final Result Performing Organization Address [facility] Co id Phone Number [facility] [address] * POCT glucose (05/25/2025 2:21 PM CDT) Glucose, POC 144 70 - 199 mg/dL Blood 05/25/2025 2:21 PM CDT 05/25/2025 2:21 PM CDT Addy Tapia MD LAB POCT ORDERABLES - [place] [address] * POCT glucose (05/25/2025 1:04 PM CDT) Glucose, POC 165 70 - 199 mg/dL Blood 05/25/2025 1:04 PM CDT 05/25/2025 1:04 PM CDT Addy Tapia MD LAB POCT ORDERABLES - DE VICE Final Result Performing Organization Address [facility] [place] [address] * Oxyhemoglobin, pulmonary artery (05/25/2025 1:02 PM CDT) Oxyhemoglobin, PA 74.5 % Comment: Interpretive Data No reference range established. Current interpretive data was last revised 2020. Blood 05/25/2025 1:02 PM CDT 05/25/2025 1:12 PM CDT Addy Tapia MD LAB BLOOD [place]AB[place] [address] * (ABNORMAL) Hemoglobin total, pulmonary artery (05/25/2025 1:02 PM CDT) Hemoglobin total, PA 9.4(L) 13.0 - 17.5 g/dL Blood 05/25/2025 1:02 PM CDT 05/25/2025 1:12 PM CDT Zev Cowart MD PhD LAB BLOOD ORDERABLES Fi nal Result Performing Organization Address [facility] Co de Phone Number [facility] Department [place] [address] * Potassium, whole blood (05/25/2025 1:02 PM CDT) [facility] Potassium, bld 4.0 3.3 - 4.9 mmol/L Blood 05/25/2025 1:02 PM CDT 05/25/2025 1:12 PM CDT Bar Gamble MD LAB BLOOD ORDERABLES Final R esult Performing Organization Address [facility] de Phone Number [facility] [place] [address] * (ABNORMAL) Blood gas, arterial (05/25/2025 1:02 PM CDT) Pathologist [facility] pH, Art 7.39 7.35 - 7.45 PCO2, Arterial 36 35 - 45 mmHg [facility] PO2, Arterial 102 83 - 108 mmHg [facility] HCO3 Art (Calculated) 23 20 - 30 mmol/L [facility] BE, art -2 mmol/L [facility] Comment: Interpretive Data No Reference Range Established Current Interpretive Data was last revised on 2017 O2 Sat Art (Measured) 99(H) 90 - 95 % [facility] Blood 05/25/2025 1:02 PM CDT 05/25/2025 1:12 PM CDT Addy Tapia MD LAB BLOOD ORDERABLES Fin al Result Performing Organization Address [facility]/ZIP Co de Phone Number [facility] [place] [address] * POCT glucose (05/25/2025 11:58 AM CDT) Glucose, POC 144 70 - 199 mg/dL Blood 05/25/2025 11:5 8 AM CDT 05/25/2025 11:58 AM CDT Addy Tapia MD LAB POCT ORDERABLES - DE VICE Final Result Performing Organization Address [facility] [place] [address] * POCT glucose (05/25/2025 11:10 AM CDT) Glucose, POC 130 70 - 199 mg/dL Blood 05/25/2025 11:1 0 AM CDT 05/25/2025 11:10 AM CDT Addy Tapia MD LAB POCT ORDERABLES - DE VICE Final Result Performing Organization Address [facility] [place] [address] * POCT glucose (05/25/2025 10:01 AM CDT) Glucose, POC 113 70 - 199 mg/dL Blood 05/25/2025 10:0 1 AM CDT 05/25/2025 10:01 AM CDT Addy Tapia MD LAB POCT ORDERABLES - DE VICE Final Result Performing Organization Address City/[facility]/ZIP Co de Phone Number [facility] [place] [address] * POCT glucose (05/25/2025 9:06 AM CDT) Glucose, POC 100 70 - 199 mg/dL Blood 05/25/2025 9:06 AM CDT 05/25/2025 9:06 AM CDT Addy Tapia MD LAB POCT ORDERABLES - DE VICE Final Result Performing Organization Address [facility] Co de Phone Number [facility] [place] [address] * POCT glucose (05/25/2025 8:01 AM CDT) Glucose, POC 107 70 - 199 mg/dL Blood 05/25/2025 8:01 AM CDT 05/25/2025 8:01 AM CDT Addy Tapia MD LAB POCT ORDERABLES - DE VICE Final Result Performing Organization Address [facility] Co de Phone Number [facility] [place] [address] * Potassium, whole blood (05/25/2025 7:59 AM CDT) [facility] Potassium, bld 3.8 3.3 - 4.9 mmol/L Blood 05/25/2025 7:59 AM CDT 05/25/2025 8:14 AM CDT Bar Gamble MD LAB BLOOD ORDERABLES Final R esult Performing Organization Address City/[facility] Co de Phone Number [facility] [place] [address] * (ABNORMAL) eGFR (05/25/2025 7:59 AM CDT) Pathologist [facility] eGFR 25(L) >=60 mL/min/1. 73 m2 Comment: [...] 7:59 AM CDT 05/25/2025 8:29 AM CDT Addy Tapia MD LAB BLOOD ORDERABLES [facility] al Result [facility] [place] [address] * (ABNORMAL) Basic metabolic panel (05/25/2025 7:59 AM CDT) Sodium 140 135 - 145 mmol/L Potassium, pl 4.0 3.3 - 4.9 mmol/L [facility] Chloride 101 97 - 110 mmol/L [facility] CO2 26 22 - 32 mmol/L [facility] Anion gap 13 2 - 15 mmol/L [facility] BUN 87(H) 6 - 25 mg/dL [facility] Creatinine 2.82(H) 0.80 - 1.30 mg/dL [facility] Glucose 100 70 - 199 mg/dL [facility] Comment: Interpretive Data Fasting glucose >/= 126 [...] 2022. Calcium 9.1 8.5 - 10.3 mg/dL [facility] Blood 05/25/2025 7:59 AM CDT 05/25/2025 8:14 AM CDT Addy Tapia MD LAB BLOOD ORDERABLES Fin al Result Performing Organization Address City/[facility]/ZIP Co de Phone Number [facility] [place] [address] * POCT glucose (05/25/2025 6:50 AM CDT) Glucose, POC 109 70 - 199 mg/dL Blood 05/25/2025 6:50 AM CDT 05/25/2025 6:50 AM CDT Addy Tapia MD LAB POCT ORDERABLES - DE VICE Final Result Performing Organization Address [facility] Co de Phone Number [facility] [place] [address] * POCT glucose (05/25/2025 5:16 AM CDT) Glucose, POC 117 70 - 199 mg/dL Blood 05/25/2025 5:16 AM CDT 05/25/2025 5:16 AM CDT Addy Tapia MD LAB POCT ORDERABLES - DE VICE Final Result Performing Organization Address City/[facility] Co de Phone Number [facility] [place] [address] * Potassium, whole blood (05/25/2025 5:14 AM CDT) Potassium, bld 4.1 3.3 - 4.9 mmol/L Blood 05/25/2025 5:14 AM CDT 05/25/2025 5:23 AM CDT Bar Gamble MD LAB BLOOD ORDERABLES Final R esult Performing Organization Address [facility] Phone Number [facility] [place] [address] * Tacrolimus level trough (05/25/2025 5:06 AM CDT) Tacrolimus trough 14.6 ng/mL Comment: Interpretive Data Testing performed by liquid chromatography-tandem mass spectrometry. Therapeutic concentrations vary depending on type of transplanted organ and time elapsed since transplant. Typical trough concentrations range from 5-15 ng/mL. This test was developed and its performance characteristics determined by the [facility] consistent with CLIA requirements. This test has not been cleared or approved by the [place] Food and Drug administration. Current interpretive data last reviewed 2020. Blood 05/25/2025 5:06 AM CDT 05/25/2025 5:29 AM CDT Zev Cowart MD PhD LAB BLOOD ORDERABLES Fi nal Result Performing Organization Address [facility] Co de Phone Number [facility] [place] [address] * POCT glucose (05/25/2025 3:46 AM CDT) Glucose, POC 114 70 - 199 mg/dL Blood 05/25/2025 3:46 AM CDT 05/25/2025 3:46 AM CDT Addy Tapia MD LAB POCT ORDERABLES - DE VICE Final Result Performing Organization Address [facility] Co de [place] [address] * POCT glucose (05/25/2025 1:55 AM CDT) Glucose, POC 133 70 - 199 mg/dL Blood 05/25/2025 1:55 AM CDT 05/25/2025 1:55 AM CDT Addy Tapia MD LAB POCT ORDERABLES - DE VICE Final Result Performing Organization Address City/[facility] [place] [address] * POCT glucose (05/25/2025 1:04 AM CDT) Glucose, POC 135 70 - 199 mg/dL Blood 05/25/2025 1:04 AM CDT 05/25/2025 1:04 AM CDT Addy Tapia MD LAB POCT ORDERABLES - DE VICE Final Result Performing Organization Address City/[facility]/[place] [address] * POCT glucose (05/25/2025 12:22 AM CDT) Glucose, POC 143 70 - 199 mg/dL Blood 05/25/2025 12:2 2 AM CDT 05/25/2025 12:22 AM CDT Addy Tapia MD LAB POCT ORDERABLES - DE VICE Final Result Performing Organization Address City/[facility] [place] [address] * Oxyhemoglobin, central venous (05/25/2025 12:06 AM CDT) Oxyhemoglobin, CV 86.7 % Comment: Interpretive Data No reference range established. Current interpretive data was last revised 2020. Blood 05/25/2025 12:0 6 AM CDT 05/25/2025 12:29 AM CDT Addy Tapia MD LAB BLOOD ORDERABLES Fin al Result Performing Organization Address City/[facility] Co de Phone Number [facility] [place] [address] * Oxyhemoglobin, pulmonary artery (05/25/2025 12:06 AM CDT) Oxyhemoglobin, PA 73.9 % Comment: Interpretive Data No reference range established. Current interpretive data was last revised 2020. Blood 05/25/2025 12:0 6 AM CDT 05/25/2025 12:27 AM CDT Addy Tapia MD LAB BLOOD ORDERABLES Fin al Result Performing Organization Address [facility] [place] [address] * (ABNORMAL) Hemoglobin total, pulmonary artery (05/25/2025 12:06 AM CDT) Hemoglobin total, PA 8.8(L) 13.0 - 17.5 g/dL Blood 05/25/2025 12:0 6 AM CDT 05/25/2025 12:27 AM CDT Result [facility] Addy Tapia MD LAB BLOOD ORDERABLES Fin al Result Performing Organization Address City/[facility] Co de Phone Number [facility] [place] [address] * Potassium, whole blood (05/25/2025 12:06 AM CDT) Potassium, bld 4.2 3.3 - 4.9 mmol/L Blood 05/25/2025 12:0 6 AM CDT 05/25/2025 12:27 AM CDT Addy Tapia MD LAB BLOOD ORDERABLES Fin al Result Performing Organization Address City/[facility]/ZIP Co de Phone Number DULCE MARIA [facility] Department [place] [address] * (ABNORMAL) eGFR (05/25/2025 12:06 AM CDT) Pathologist [facility] eGFR 25(L) >=60 mL/min/1. 73 m2 Comment: [...] ORDERABLES Fin al Result Performing Organization Address City/[facility]/ZIP Co de Phone Number DULCE MARIA [facility] [place] [address] * Lactate, whole blood (05/25/2025 12:06 AM CDT) Pathologist [facility] Lactate, bld 0.9 0.7 - 2.0 mmol/L Blood 05/25/2025 12:0 6 AM CDT 05/25/2025 12:27 AM CDT Zev Cowart MD PhD LAB BLOOD ORDERABLES Fi nal Result Performing Organization Address [facility] Co de Phone Number [facility] [place] [address] * aPTT (05/25/2025 12:06 AM CDT) [facility] aPTT 34 28 - 38 sec Comment: Interpretive Data Heparin therapeutic range: 66.0 - 100.0 seconds. Range based on correlation with therapeutic heparin activity range of 0.3 - 0.7 Units/mL. Current interpretive data was last revised on 2023. Blood 05/25/2025 12:0 6 AM CDT 05/25/2025 12:39 AM CDT Narrative [facility] - 05/25/2025 12:48 AM CDT STAT PTT [...] drawn peripherally (not from CVC). Libia Suarez PROGRAM SUPPORT CLERK LAB BLOOD ORDERABLES Final Re sult Performing Organization Address [facility] Co de Phone Number [facility] [place] [address] * (ABNORMAL) CBC without differential (05/25/2025 12:06 AM CDT) WBC 15.48(H) 3.80 - 9.90 K/cumm Hgb 8.8(L) 13.0 - 17.5 g/dL [facility] Hct 26.7(L) 38.9 - 50.3 % [facility] Plt 139(L) 150 - 400 K/cumm [facility] MPV 11.0 9.1 - 12.3 fL [facility] RBC 3.26(L) 4.30 - 5.80 M/cumm [facility] MCV 81.9 81.3 - 96.4 fL [facility] MCH 27.0(L) 27.1 - 33.3 pg [facility] MCHC 33.0 32.3 - 35.7 g/dL [facility] RDW CV 15.4(H) 11.1 - 14.9 % [facility] [facility] RDW SD 46.3 35.7 - 48.1 fL [facility] NRBC abs 0.00 0.00 - 0.01 K/cumm [facility] Blood 05/25/2025 12:0 6 AM CDT 05/25/2025 12:32 AM CDT Zev Cowart MD PhD LAB BLOOD ORDERABLES Fi nal Result [facility] [place] [address] * (ABNORMAL) Phosphorus (05/25/2025 12:06 AM CDT) Pathologist [facility] Phosphorus, pl 6.5(H) 2.3 - 4.5 mg/dL Blood 05/25/2025 12:0 6 AM CDT 05/25/2025 1:01 AM CDT Addy Tapia MD LAB BLOOD ORDERABLES Fin al Result [facility] [place] [address] * (ABNORMAL) Magnesium (05/25/2025 12:06 AM CDT) Pathologist [facility] Magnesium 2.7(H) 1.4 - 2.5 mg/dL Blood 05/25/2025 12:0 6 AM CDT 05/25/2025 1:01 AM CDT Addy Tapia MD LAB BLOOD ORDERABLES Fin al Result Performing Organization Address [facility] Co de Phone Number [facility] Department [place] [address] * Lipase (05/25/2025 12:06 AM CDT) Pathologist [facility] Lipase 28 10 - 99 Units/L Blood 05/25/2025 12:0 6 AM CDT 05/25/2025 1:01 AM CDT Addy Tapia MD LAB BLOOD ORDERABLES Fin al Result Performing Organization Address [facility] de Phone Number [facility] [place] [address] * (ABNORMAL) Blood gas, arterial (05/25/2025 12:06 AM CDT) Pathologist [facility] pH, Art 7.39 7.35 - 7.45 PCO2, Arterial 39 35 - 45 mmHg [facility] PO2, Arterial 113(H) 83 - 108 mmHg [facility] HCO3 Art (Calculated) 24 20 - 30 mmol/L [facility] BE, art -1 mmol/L [facility] Comment: Interpretive Data No Reference Range Established Current Interpretive Data was last revised on 2017 O2 Sat Art (Measured) 99(H) 90 - 95 % [facility] Blood 05/25/2025 12:0 6 AM CDT 05/25/2025 12:27 AM CDT Addy Tapia MD LAB BLOOD ORDERABLES Fin al Result [facility] [place] [address] * (ABNORMAL) Hepatic function panel (05/25/2025 12:06 AM CDT) Bilirubin, total 0.8 0.1 - 1.2 mg/dL Bilirubin, direct 0.5(H) 0.1 - 0.3 mg/dL [facility] Protein, pl 6.3(L) 6.5 - 8.5 g/dL [facility] Albumin 4.0 3.5 - 5.0 g/dL [facility] Alk phos 145(H) 40 - 130 Units/L [facility] ALT 29 7 - 55 Units/L [facility] AST 34 10 - 50 Units/L [facility] Blood 05/25/2025 12:0 6 AM CDT 05/25/2025 1:01 AM CDT Bar Gamble MD LAB BLOOD ORDERABLES Final R esult Performing Organization Address City/[facility] Co de Phone Number [facility] Department [place] [address] * (ABNORMAL) Basic metabolic panel (05/25/2025 12:06 AM CDT) Pathologist [facility] Sodium 141 135 - 145 mmol/L Potassium, pl 4.2 3.3 - 4.9 mmol/L [facility] Chloride 99 97 - 110 mmol/L [facility] CO2 23 22 - 32 mmol/L [facility] Anion gap 19(H) 2 - 15 mmol/L [facility] BUN 83(H) 6 - 25 mg/dL [facility] Creatinine 2.75(H) 0.80 - 1.30 mg/dL [facility] Glucose 125 70 - 199 mg/dL [facility] Comment: Interpretive Data Fasting glucose >/= 126 [...] 2022. Calcium 9.3 8.5 - 10.3 mg/dL [facility] Blood 05/25/2025 12:0 6 AM CDT 05/25/2025 1:01 AM CDT us Addy Tapia MD LAB BLOOD ORDERABLES [facility] al Result [facility] [place] [address] * (ABNORMAL) POC Blood Gas and Chemistries, Arterial - (05/24/2025 11:39 PM CDT) Pathologist [facility] pH, Art POC 7.41 7.35 - 7.45 pCO2, Art POC 39 35 - 45 mmHg [facility] pO2, Art POC 101 83 - 108 mmHg [facility] Na, POC 138 135 - 145 mmol/L [facility] K POC 4.2 3.3 - 4.9 mmol/L [facility] Comment: Interpretive Data Not all point of care methods assess for hemolysis. Confirm with instrument and retest K+ if not consistent with clinical signs and symptoms. Current Interpretive Data was last revised on 2024. Cl, POC 105 97 - 110 mmol/L [facility] Ionized Ca, POC 4.76 4.50 - 5.10 mg/dL [facility] Glucose, POC 123 70 - 199 mg/dL [facility] Lactate POC 0.8 0.7 - 2.0 mmol/L [facility] SO2 (sameer) arterial 98(H) 90 - 95 % [facility] Base excess, POC 0.1 mmol/L [facility] HCO3, Art POC 25 20 - 30 mmol/L [facility] Hct, POC 28.0(L) 41.4 - 51.6 % [facility] Total Hb, POC 9.2(L) 13.8 - 17.2 g/dL [facility] Blood 05/24/2025 11:3 9 PM CDT 05/24/2025 11:39 PM CDT Addy Tapia MD LAB POCT ORDERABLES - DE VICE Final Result Performing Organization Address City/[facility]/ZIP Co de Phone Number [facility] [place] [address] * POCT glucose (05/24/2025 11:25 PM CDT) [facility] Glucose, POC 123 70 - 199 mg/dL Blood 05/24/2025 11:2 5 PM CDT 05/24/2025 11:25 PM CDT Addy Tapia MD LAB POCT ORDERABLES - DE VICE Final Result Performing Organization Address [facility] Co de Phone Number [facility] [place] [address] * CT Abdomen Pelvis WO Contrast (05/24/2025 [...] drains are noted which courses outside the [id number]. Gastric tube terminates at the antrum. Esophagus [...] drains are noted which courses outside the [id number]. Gastric tube terminates at the antrum. Esophagus [...] DE VICE Final Result Performing Organization Address City/[facility] Co de Phone Number D[facility] MAR[facility] [place] [address] * POCT glucose (05/24/2025 8:53 PM CDT) Glucose, POC 144 70 - 199 mg/dL Blood 05/24/2025 8:53 PM CDT 05/24/2025 8:53 PM CDT Addy Tapia MD LAB POCT ORDERABLES - DE VICE Final Result Performing Organization Address [facility] Phone Number DULCE MARIA [facility] [place] [address] * XR Chest 1 View (05/24/2025 7:55 PM CDT) Anatomical Region Laterality Modality Body, Chest N/A Computed Radiogr aphy 05/25/2025 7:46 AM CDT Impressions 05/25/2025 7:47 AM CDT Comparison is made to chest radiograph 06/19/2025. Postsurgical changes of median sternotomy, sternal plates are unchanged in position. Packwood-Jayne catheter tip terminating at the level of [...] sternotomy, sternal plates are unchanged in position. Packwood-Jayne catheter tip terminating at the level of [...] * POCT glucose (05/24/2025 7:48 PM CDT) Glucose, POC 151 70 - 199 mg/dL Blood 05/24/2025 7:48 PM CDT 05/24/2025 7:48 PM CDT Addy Tapia MD LAB POCT ORDERABLES - DE VICE Final Result Performing Organization Address [facility] Co de Phone Number [facility] [employer] [place] [address] * POCT glucose (05/24/2025 6:32 PM CDT) Glucose, POC 168 70 - 199 mg/dL Blood 05/24/2025 6:32 PM CDT 05/24/2025 6:32 PM CDT Addy Tapia MD LAB POCT ORDERABLES - DE VICE Final Result Performing Organization Address [facility] Co de Phone Number [facility] [place] [address] * POCT glucose (05/24/2025 5:42 PM CDT) Glucose, POC 163 70 - 199 mg/dL Blood 05/24/2025 5:42 PM CDT 05/24/2025 5:42 PM CDT us Addy Tapia MD LAB POCT ORDERABLES - DE VICE Final Result Performing Organization Address City/[facility]/ZIP Co de Phone Number [facility] Department [place] [address] * (ABNORMAL) Hemoglobin total, pulmonary artery (05/24/2025 3:53 PM CDT) Pathologist [facility] Hemoglobin total, PA 9.1(L) 13.0 - 17.5 g/dL Blood 05/24/2025 3:53 PM CDT 05/24/2025 4:01 PM CDT us Bar Gamble MD LAB BLOOD ORDERABLES Final R esult Performing Organization Address City/[facility]/ZIP Co de Phone Number [facility] [place] [address] * (ABNORMAL) eGFR (05/24/2025 3:53 PM CDT) eGFR 28(L) >=60 mL/min/1. 73 m2 Comment: [...] MD LAB BLOOD ORDERABLES Fin al Result [facility] [place] [address] * (ABNORMAL) Basic metabolic panel (05/24/2025 3:53 PM CDT) Pathologist [facility] Sodium 138 135 - 145 mmol/L Potassium, pl 4.5 3.3 - 4.9 mmol/L [facility] Chloride 99 97 - 110 mmol/L [facility] CO2 21(L) 22 - 32 mmol/L [facility] Anion gap 18(H) 2 - 15 mmol/L [facility] BUN 78(H) 6 - 25 mg/dL [facility] Creatinine 2.57(H) 0.80 - 1.30 mg/dL [facility] Glucose 199 70 - 199 mg/dL [facility] Comment: Interpretive Data Fasting glucose >/= 126 [...] 2022. Calcium 9.2 8.5 - 10.3 mg/dL [facility] Blood 05/24/2025 3:53 PM CDT 05/24/2025 4:11 PM CDT us Addy Tapia MD LAB BLOOD ORDERABLES Fin al Result Performing Organization Address [facility] [place] [address] * POCT glucose (05/24/2025 3:51 PM CDT) Glucose, POC 199 70 - 199 mg/dL Blood 05/24/2025 3:51 PM CDT 05/24/2025 3:51 PM CDT Addy Tapia MD LAB POCT ORDERABLES - DE VICE Final Result Performing Organization Address [facility] Phone Number [facility] [place] [address] * POCT glucose (05/24/2025 2:26 PM CDT) Glucose, POC 177 70 - 199 mg/dL Blood 05/24/2025 2:26 PM CDT 05/24/2025 2:26 PM CDT Addy Tapia MD LAB POCT ORDERABLES - DE VICE Final Result Performing Organization Address [facility] Phone Number [facility] [place] [address] * Oxyhemoglobin, pulmonary artery (05/24/2025 1:00 PM CDT) Oxyhemoglobin, PA 72.8 % Comment: Interpretive Data No reference range established. Current interpretive data was last revised 2020. Blood 05/24/2025 1:0 0 PM CDT 05/24/2025 1:20 PM CDT Addy Tapia MD LAB BLOOD ORDERABLES Fin al Result Performing Organization Address [facility]/ZIP Co de Phone Number [facility] [place] [address] * (ABNORMAL) Hemoglobin total, pulmonary artery (05/24/2025 1:00 PM CDT) [facility] Hemoglobin total, PA 9.4(L) 13.0 - 17.5 g/dL Blood 05/24/2025 1:00 PM CDT 05/24/2025 1:20 PM CDT us Zev Cowart MD PhD LAB BLOOD ORDERABLES Fi nal Result Performing Organization Address [facility] Co de Phone Number [facility] [place] [address] * Potassium, whole blood (05/24/2025 1:00 PM CDT) [facility] Potassium, bld 4.3 3.3 - 4.9 mmol/L Blood 05/24/2025 1:00 PM CDT 05/24/2025 1:20 PM CDT us Bar Gamble MD LAB BLOOD ORDERABLES Final R esult Performing Organization Address [facility] Co de Phone Number [facility] Department [place] [address] * (ABNORMAL) Blood gas, arterial (05/24/2025 1:00 PM CDT) [facility] pH, Art 7.37 7.35 - 7.45 PCO2, Arterial 35 35 - 45 mmHg [facility] PO2, Arterial 101 83 - 108 mmHg [facility] HCO3 Art (Calculated) 21 20 - 30 mmol/L [facility] BE, art -4 mmol/L [facility] Comment: Interpretive Data No Reference Range Established Current Interpretive Data was last revised on 2017 O2 Sat Art (Measured) 99(H) 90 - 95 % [facility] Blood 05/24/2025 1:00 PM CDT 05/24/2025 1:20 PM CDT Addy Tapia MD LAB BLOOD ORDERABLES Fin al Result Performing Organization Address [facility] Phone Number [facility] [place] [address] * POCT glucose (05/24/2025 12:38 PM CDT) Glucose, POC 148 70 - 199 mg/dL Blood 05/24/2025 12:3 8 PM CDT 05/24/2025 12:38 PM CDT Addy Tapia MD LAB POCT ORDERABLES - DE VICE Final Result Performing Organization Address [facility] Phone Number [facility] [place] [address] * POCT glucose (05/24/2025 11:13 AM CDT) Glucose, POC 107 70 - 199 mg/dL Blood 05/24/2025 11:1 3 AM CDT 05/24/2025 11:13 AM CDT Addy Tapia MD LAB POCT ORDERABLES - DE VICE Final Result Performing Organization Address [facility] Phone Number [facility] [place] [address] * XR Abdomen Erect and or Decubitus [...] COMPARISON: 05/24/2025 at 12:55 AM Procedure Note Ahslee Levin MD - 05/26/2025 EXAMINATION: Abdomen with [...] it. Electronically signed by: Ashlee Levin M.D. [facility] Jamar Tapia MD IMG XR PROCEDURES Final Result * POCT glucose (05/24/2025 10:25 AM CDT) Glucose, POC 89 70 - 199 mg/dL Blood 05/24/2025 10:2 5 AM CDT 05/24/2025 10:25 AM CDT us Addy Audumbar Pawale MD LAB POCT ORDERABLES - DE VICE Final Result [facility] [place] [address] * (ABNORMAL) Differential, auto (05/24/2025 10:19 AM CDT) Neutrophil abs 18.80(H) 1.50 - 6.50 K/cumm Imm gran abs 0.23(H) 0.00 - 0.10 K/cumm [facility] Lymphocyte abs 0.33(L) 0.80 - 3.30 K/cumm [facility] Monocyte abs 1.05(H) 0.20 - 0.80 K/cumm [facility] Eosinophil abs 0.00 0.00 - 0.50 K/cumm [facility] Basophil abs 0.02 0.00 - 0.10 K/cumm [facility] Neutrophil pct 92.1 % [facility] Comment: Interpretive Data Percent cell count reference ranges are not reported, since discordance with absolute values may lead to misinterpretation of CBC data. Current Interpretive Data was last revised on 2018. Imm gran pct 1.1 % [facility] Comment: Interpretive Data Percent cell count reference ranges are not reported, since discordance with absolute values may lead to misinterpretation of CBC data. Current Interpretive Data was last revised on 2018. Lymphocyte pct 1.6 % [facility] Comment: Interpretive Data Percent cell count reference ranges are not reported, since discordance with absolute values may lead to misinterpretation of CBC data. Current Interpretive Data was last revised on 2018. Monocyte pct 5.1 % [facility] Comment: Interpretive Data Percent cell count reference ranges are not reported, since discordance with absolute values may lead to misinterpretation of CBC data. Current Interpretive Data was last revised on 2018. Eosinophil pct 0.0 % [facility] Comment: Interpretive Data Percent cell count reference ranges are not reported, since discordance with absolute values may lead to misinterpretation of CBC data. Current Interpretive Data was last revised on 2018. Basophil pct 0.1 % [facility] Comment: Interpretive Data Percent cell count reference ranges are not reported, since discordance with absolute values may lead to misinterpretation of CBC data. Current Interpretive Data was last revised on 2018. Blood 05/24/2025 10:1 9 AM CDT 05/24/2025 10:57 AM CDT Addy Tapia MD LAB BLOOD ORDERABLES Fin al Result Performing Organization Address City/[facility]/ZIP Co de Phone Number [facility] [place] [address] * (ABNORMAL) CBC with auto differential (05/24/2025 10:19 AM CDT) WBC 20.43(H) 3.80 - 9.90 K/cumm Hgb 8.9(L) 13.0 - 17.5 g/dL [facility] Hct 27.4(L) 38.9 - 50.3 % [facility] Plt 151 150 - 400 K/cumm [facility] MPV 11.7 9.1 - 12.3 fL [facility] RBC 3.29(L) 4.30 - 5.80 M/cumm [facility] MCV 83.3 81.3 - 96.4 fL [facility] MCH 27.1 27.1 - 33.3 pg [facility] MCHC 32.5 32.3 - 35.7 g/dL [facility] RDW CV 15.3(H) 11.1 - 14.9 % [facility] RDW SD 47.5 35.7 - 48.1 fL [facility] NRBC abs 0.00 0.00 - 0.01 K/cumm [facility] Blood 05/24/2025 10:1 9 AM CDT 05/24/2025 10:57 AM CDT Addy Tapia MD LAB BLOOD ORDERABLES Fin al Result Performing Organization Address [facility]/ZIP Co de Phone Number [facility] [place] [address] * (ABNORMAL) Hepatitis C (HCV) RNA PCR, quantitative Blood (05/24/2025 10:19 AM CDT) [facility] HCV RNA result Detected( A) [facility] Comment: The quantifiable range of this assay is 15 IU/mL to 100,000,000 IU/mL (1.18 log IU/mL to 8.00 log IU/mL). Testing was performed by the CARLOS 6800 HCV Test ([employer] Testing performed at [facility] Current Interpretive Data was last revised on 2021 HCV RNA IU/mL 11,800 IUnits/mL [facility] HCV RNA log IU/mL 4.07 log IUnits/mL [facility] Blood 05/24/2025 10:1 9 AM CDT 05/24/2025 10:37 AM CDT Emeli Jarvis MD LAB MICROBIOLOGY - GENERA L ORDERABLES Final Result [facility] [place] [address] [facility] * Critical Care (05/24/2025 8:33 AM CDT) [...] plan with the ICU team and other medical/oncology consultant staff, making frequent assessments and decisions [...] * POCT glucose (05/24/2025 8:19 AM CDT) [facility] Glucose, POC 115 70 - 199 mg/dL Blood 05/24/2025 8:19 AM CDT 05/24/2025 8:19 AM CDT Addy Tapia MD LAB POCT ORDERABLES - DE VICE Final Result [facility] [place] [address] * (ABNORMAL) eGFR (05/24/2025 7:36 AM CDT) Pathologist [facility] eGFR 29(L) >=60 mL/min/1. 73 m2 Comment: [...] LAB BLOOD ORDERABLES Fin al Result [facility] [place] [address] * POCT glucose (05/24/2025 7:36 AM CDT) Glucose, POC 130 70 - 199 mg/dL Blood 05/24/2025 7:36 AM CDT 05/24/2025 7:36 AM CDT Addy Tapia MD LAB POCT ORDERABLES - DE VICE Final Result Performing Organization Address City/[facility]/ZIP Co de Phone Number [facility] [place] [address] * (ABNORMAL) Basic metabolic panel (05/24/2025 7:36 AM CDT) Sodium 138 135 - 145 mmol/L Potassium, pl 4.2 3.3 - 4.9 mmol/L [facility] Chloride 101 97 - 110 mmol/L [facility] CO2 24 22 - 32 mmol/L [facility] Anion gap 13 2 - 15 mmol/L [facility] BUN 75(H) 6 - 25 mg/dL [facility] Creatinine 2.50(H) 0.80 - 1.30 mg/dL [facility] Glucose 129 70 - 199 mg/dL [facility] Comment: Interpretive Data Fasting glucose >/= 126 [...] 2022. Calcium 8.5 8.5 - 10.3 mg/dL [facility] Blood 05/24/2025 7:36 AM CDT 05/24/2025 7:56 AM CDT Addy Tapia MD LAB BLOOD ORDERABLES Fin al Result Performing Organization Address [facility]/ZIP Co de Phone Number [facility] [place] [address] * POCT glucose (05/24/2025 6:06 AM CDT) Glucose, POC 153 70 - 199 mg/dL Blood 05/24/2025 6:06 AM CDT 05/24/2025 6:06 AM CDT Addy Tapia MD LAB POCT ORDERABLES - DE VICE Final Result Performing Organization Address [facility]/ZIP Co de Phone Number [facility] [place] [address] * Tacrolimus level trough (05/24/2025 6:04 AM CDT) Tacrolimus trough 13.2 ng/mL Comment: Interpretive Data Testing performed by liquid chromatography-tandem mass spectrometry. Therapeutic concentrations vary depending on type of transplanted organ and time elapsed since transplant. Typical trough concentrations range from 5-15 ng/mL. This test was developed and its performance characteristics determined by the [facility] consistent with CLIA requirements. This test has not been cleared or approved by the [place] Food and Drug administration. Current interpretive data last reviewed 2020. Blood 05/24/2025 6:04 AM CDT 05/24/2025 6:30 AM CDT Zev Cowart MD PhD LAB BLOOD ORDERABLES Fi nal Result [facility] [place] [address] * (ABNORMAL) POC Blood Gas and Chemistries, Arterial - (05/24/2025 4:34 AM CDT) pH, Art POC 7.41 7.35 - 7.45 pCO2, Art POC 37 35 - 45 mmHg [facility] pO2, Art POC 80(L) 83 - 108 mmHg [facility] Na, POC 132(L) 135 - 145 mmol/L [facility] K POC 4.0 3.3 - 4.9 mmol/L [facility] Comment: Interpretive Data Not all point of care methods assess for hemolysis. Confirm with instrument and retest K+ if not consistent with clinical signs and symptoms. Current Interpretive Data was last revised on 2024. Cl, POC 102 97 - 110 mmol/L [facility] Ionized Ca, POC 4.46(L) 4.50 - 5.10 mg/dL [facility] Glucose, POC 142 70 - 199 mg/dL [facility] Lactate POC 0.9 0.7 - 2.0 mmol/L [facility] SO2 (sameer) arterial 96(H) 90 - 95 % [facility] Base excess, POC -0.8 mmol/L [facility] HCO3, Art POC 24 20 - 30 mmol/L [facility] Hct, POC 41.0(L) 41.4 - 51.6 % [facility] Total Hb, POC 13.5(L) 13.8 - 17.2 g/dL [facility] Blood 05/24/2025 4:34 AM CDT 05/24/2025 4:34 AM CDT Addy Tapia MD LAB POCT ORDERABLES - DE VICE Final Result Performing Organization Address City/[facility]/ZIP Co de Phone Number [facility] [place] [address] * POCT glucose (05/24/2025 2:14 AM CDT) Glucose, POC 152 70 - 199 mg/dL Blood 05/24/2025 2:14 AM CDT 05/24/2025 2:14 AM CDT Addy Tapia MD LAB POCT ORDERABLES - DE VICE Final Result Performing Organization Address [facility] Phone Number [facility] [facility] [place] [address] * XR Abdomen 1 View AP (05/24/2025 1:02 AM CDT) Anatomical Region Laterality Modality Body, Abdomen N/A Digital Radiogra phy 05/24/2025 3:32 AM CDT Impressions 05/24/2025 3:32 AM CDT 1. Single view abdomen 05/23/2025 at 7:06 PM is compared to prior study of 05/21/2025 at 8:25 AM.Again seen are midline drains and a partially imaged Packwood-Jayne catheter. There is no feeding tube or gastric tube identified. Mild gaseous distention of colon is seen which could be indicative of an adynamic ileus. No evidence for small bowel obstruction. 2. Single view chest from 05/24/2025 12:55 AM is compared to prior study of 05/22/2025 at 8:56 PM. Again seen is right internal jugular catheter with the tip identified tip Packwood-Jayne catheter overlies main pulmonary artery. Pericardial and [...] are midline drains and a partially imaged Packwood-Jayne catheter. There is no feeding tube or gastric tube identified. Mild gaseous distention of colon is seen which could be indicative of an adynamic ileus. No evidence for small bowel obstruction. 2. Single view chest from 05/24/2025 12:55 AM is compared to prior study of 05/22/2025 at 8:56 PM. Again seen is right internal jugular catheter with the tip identified tip Packwood-Jayne catheter overlies main pulmonary artery. Pericardial and [...] change. Electronically signed by: Kristian Hagan M.D. Result [facility] Addy Tapia MD IMG XR PROCEDURES Final Result * POCT glucose (05/24/2025 12:16 AM CDT) Glucose, POC 113 70 - 199 mg/dL Blood 05/24/2025 12:1 6 AM CDT 05/24/2025 12:16 AM CDT Result [facility] Addy Tapia MD LAB POCT ORDERABLES - DE VICE Final Result Performing Organization Address [facility] Co de Phone Number [facility] Department [place] [address] * Oxyhemoglobin, pulmonary artery (05/23/2025 11:11 PM CDT) Oxyhemoglobin, PA 59.7 % Comment: Interpretive Data No reference range established. Current interpretive data was last revised 2020. Blood 05/23/2025 11:1 1 PM CDT 05/23/2025 11:35 PM CDT Result [facility] Addy Tapia MD LAB BLOOD ORDERABLES Fin al Result Performing Organization Address City/[facility]/ZIP Co de Phone Number [facility] [place] [address] * (ABNORMAL) Hemoglobin total, pulmonary artery (05/23/2025 11:11 PM CDT) Hemoglobin total, PA 8.8(L) 13.0 - 17.5 g/dL Blood 05/23/2025 11:1 1 PM CDT 05/23/2025 11:35 PM CDT Result [facility] Bar Gamble MD LAB BLOOD ORDERABLES Final R esult [facility] [place] [address] * Potassium, whole blood (05/23/2025 11:11 PM CDT) Potassium, bld 4.3 3.3 - 4.9 mmol/L Blood 05/23/2025 11:1 1 PM CDT 05/23/2025 11:35 PM CDT Addy Tapia MD LAB BLOOD ORDERABLES Fin al Result Performing Organization Address [facility] Co de Phone Number [facility] Department [place] [address] * (ABNORMAL) eGFR (05/23/2025 11:11 PM CDT) eGFR 29(L) >=60 mL/min/1. 73 m2 [...] ORDERABLES Fin al Result Performing Organization Address [facility]/ZIP Co de Phone Number [facility] [place] [employer] [place] [address] * (ABNORMAL) CBC without differential (05/23/2025 11:11 PM CDT) WBC 18.85(H) 3.80 - 9.90 K/cumm Hgb 8.4(L) 13.0 - 17.5 g/dL [facility] Hct 25.0(L) 38.9 - 50.3 % [facility] Plt 127(L) 150 - 400 K/cumm [facility] MPV 11.0 9.1 - 12.3 fL [facility] RBC 3.04(L) 4.30 - 5.80 M/cumm [facility] MCV 82.2 81.3 - 96.4 fL [facility] MCH 27.6 27.1 - 33.3 pg [facility] MCHC 33.6 32.3 - 35.7 g/dL [facility] RDW CV 15.3(H) 11.1 - 14.9 % [facility] RDW SD 46.1 35.7 - 48.1 fL [facility] NRBC abs 0.00 0.00 - 0.01 K/cumm [facility] Blood 05/23/2025 11:1 1 PM CDT 05/23/2025 11:38 PM CDT Zev Cowart MD PhD LAB BLOOD ORDERABLES Fi nal Result [facility] [place] [address] * Triglycerides (05/23/2025 11:11 PM CDT) Triglycerides [...] ORDERABLES Fin al Result Performing Organization Address [facility] Co de Phone Number [facility] Department [place] [address] * (ABNORMAL) Phosphorus (05/23/2025 11:11 PM CDT) Phosphorus, pl 6.2(H) 2.3 - 4.5 mg/dL Blood 05/23/2025 11:1 1 PM CDT 05/24/2025 12:06 AM CDT Zev Cowart MD PhD LAB BLOOD ORDERABLES Fi nal Result Performing Organization Address [facility] de Phone Number [facility] [place] [address] * (ABNORMAL) Magnesium (05/23/2025 11:11 PM CDT) Magnesium 2.6(H) 1.4 - 2.5 mg/dL Blood 05/23/2025 11:1 1 PM CDT 05/24/2025 12:06 AM CDT Zev Cowart MD PhD LAB BLOOD ORDERABLES Fi nal Result Performing Organization Address City/[facility] de Phone Number [facility] [place] [address] * (ABNORMAL) Blood gas, arterial (05/23/2025 11:11 PM CDT) pH, Art 7.39 7.35 - 7.45 PCO2, Arterial 37 35 - 45 mmHg [facility] PO2, Arterial 61(L) 83 - 108 mmHg [facility] HCO3 Art (Calculated) 23 20 - 30 mmol/L [facility] BE, art -2 mmol/L [facility] Comment: Interpretive Data No Reference Range Established Current Interpretive Data was last revised on 2017 O2 Sat Art (Measured) 90 90 - 95 % [facility] Blood 05/23/2025 11:1 1 PM CDT 05/23/2025 11:35 PM CDT Addy Tapia MD LAB BLOOD ORDERABLES Fin al Result Performing Organization Address [facility] de Phone Number [facility] Department [place] [address] * (ABNORMAL) Hepatic function panel (05/23/2025 11:11 PM CDT) Pathologist [facility] Bilirubin, total 0.8 0.1 - 1.2 mg/dL Bilirubin, direct 0.5(H) 0.1 - 0.3 mg/dL [facility] Protein, pl 6.2(L) 6.5 - 8.5 g/dL [facility] Albumin 4.0 3.5 - 5.0 g/dL [facility] Alk phos 135(H) 40 - 130 Units/L [facility] ALT 23 7 - 55 Units/L [facility] AST 42 10 - 50 Units/L [facility] Blood 05/23/2025 11:1 1 PM CDT 05/24/2025 12:06 AM CDT Bar Gamble MD LAB BLOOD ORDERABLES Final R esult [facility] [place] [address] * (ABNORMAL) Basic metabolic panel (05/23/2025 11:11 PM CDT) Pathologist [facility] Sodium 137 135 - 145 mmol/L Potassium, pl 4.3 3.3 - 4.9 mmol/L [facility] Chloride 99 97 - 110 mmol/L [facility] CO2 24 22 - 32 mmol/L [facility] Anion gap 14 2 - 15 mmol/L [facility] BUN 69(H) 6 - 25 mg/dL [facility] Creatinine 2.50(H) 0.80 - 1.30 mg/dL [facility] Glucose 153 70 - 199 mg/dL [facility] Comment: Interpretive Data Fasting glucose >/= 126 [...] 2022. Calcium 9.2 8.5 - 10.3 mg/dL [facility] Blood 05/23/2025 11:1 1 PM CDT 05/24/2025 12:06 AM CDT us Addy Tapia MD LAB BLOOD ORDERABLES Fin al Result Performing Organization Address [facility]/ZIP Co de Phone Number [facility] [place] [address] * Antibody identification (05/23/2025 10:38 PM CDT) [facility] Antibody ID 1 Anti-CD38 Comment:Panreactive -CD38 on reagent RBCs reacting with anti-CD38 therapy. DTT treatment removes cell surface CD38 and allows detection of common clinically significant antibodies except those against Dilma antigens. TRANSFUSION 2015;55;[id number] Blood 05/23/2025 10:3 8 PM CDT 05/23/2025 10:38 PM CDT us Libia Suarez PROGRAM SUPPORT CLERK LAB BLOOD BANK TEST ORDERABLE S Final Result [facility] [place] [address] * POCT glucose (05/23/2025 10:35 PM CDT) Glucose, POC 144 70 - 199 mg/dL Blood 05/23/2025 10:3 5 PM CDT 05/23/2025 10:35 PM CDT Addy Tapia MD LAB POCT ORDERABLES - DE VICE Final Result Performing Organization Address City/[facility] Co de Phone Number DULCE MARIA [facility] Department [place] [address] * XR Chest 1 View (05/23/2025 9:58 PM CDT) Anatomical Region Laterality Modality Body, Chest N/A Digital Radiogra phy 05/24/2025 3:32 AM CDT Impressions 05/24/2025 3:32 AM CDT 1. Single view abdomen 05/23/2025 at 7:06 PM is compared to prior study of 05/21/2025 at 8:25 AM.Again seen are midline drains and a partially imaged Packwood-Jayne catheter. There is no feeding tube or gastric tube identified. Mild gaseous distention of colon is seen which could be indicative of an adynamic ileus. No evidence for small bowel obstruction. 2. Single view chest from 05/24/2025 12:55 AM is compared to prior study of 05/22/2025 at 8:56 PM. Again seen is right internal jugular catheter with the tip identified tip Packwood-Jayne catheter overlies main pulmonary artery. Pericardial and [...] are midline drains and a partially imaged Packwood-Jayne catheter. There is no feeding tube or gastric tube identified. Mild gaseous distention of colon is seen which could be indicative of an adynamic ileus. No evidence for small bowel obstruction. 2. Single view chest from 05/24/2025 12:55 AM is compared to prior study of 05/22/2025 at 8:56 PM. Again seen is right internal jugular catheter with the tip identified tip Packwood-Jayne catheter overlies main pulmonary artery. Pericardial and [...] DE VICE Final Result Performing Organization Address City/[facility]/ZIP Co de Phone Number [facility] [place] [employer] [place] [address] * POCT glucose (05/23/2025 8:09 PM CDT) Glucose, POC 98 70 - 199 mg/dL Blood 05/23/2025 8:09 PM CDT 05/23/2025 8:09 PM CDT Result [facility] Addy Tapia MD LAB POCT ORDERABLES - DE VICE Final Result Performing Organization Address City/[facility]/ZIP Co de Phone Number [facility] [place] [address] * (ABNORMAL) Type and screen (05/23/2025 8:08 PM CDT) Poppy, indirect Positive(A) ABO Rh O Positive [facility] Blood 05/23/2025 8:08 PM CDT 05/23/2025 8:38 PM CDT Narrative DULCE MARIA [facility] - 05/23/2025 10:38 PM CDT Has the patient had Daratumumab or Isatuximab in the past 6 months?->Unknown Libia Suarez NP LAB BLOOD BANK TEST ORDERABLE S Final Result Performing Organization Address [facility]/ZIP Co de Phone Number [facility] Department [place] [address] * Lipase (05/23/2025 8:08 PM CDT) Lipase 11 10 - 99 Units/L Blood 05/23/2025 8:08 PM CDT 05/23/2025 8:23 PM CDT Addy Tapia MD LAB BLOOD ORDERABLES Fin al Result Performing Organization Address [facility] Co de Phone Number [facility] [place] [address] * XR Abdomen Ap 1 Vw (05/23/2025 7:45 PM CDT) Anatomical Region Laterality Modality Body, Abdomen N/A Digital Radiogra phy 05/24/2025 3:32 AM CDT Impressions 05/24/2025 3:32 AM CDT 1. Single view abdomen 05/23/2025 at 7:06 PM is compared to prior study of 05/21/2025 at 8:25 AM.Again seen are midline drains and a partially imaged Packwood-Jayne catheter. There is no feeding tube or gastric tube identified. Mild gaseous distention of colon is seen which could be indicative of an adynamic ileus. No evidence for small bowel obstruction. 2. Single view chest from 05/24/2025 12:55 AM is compared to prior study of 05/22/2025 at 8:56 PM. Again seen is right internal jugular catheter with the tip identified tip Packwood-Jayne catheter overlies main pulmonary artery. Pericardial and [...] are midline drains and a partially imaged Packwood-Jayne catheter. There is no feeding tube or gastric tube identified. Mild gaseous distention of colon is seen which could be indicative of an adynamic ileus. No evidence for small bowel obstruction. 2. Single view chest from 05/24/2025 12:55 AM is compared to prior study of 05/22/2025 at 8:56 PM. Again seen is right internal jugular catheter with the tip identified tip Packwood-Jayne catheter overlies main pulmonary artery. Pericardial and [...] DE VICE Final Result Performing Organization Address [facility] Co de Phone Number [facility] [place] [address] * POCT glucose (05/23/2025 6:07 PM CDT) Glucose, POC 117 70 - 199 mg/dL Blood 05/23/2025 6:07 PM CDT 05/23/2025 6:07 PM CDT Addy Tapia MD LAB POCT ORDERABLES - DE VICE Final Result Performing Organization Address City/[facility]/ZIP Co de Phone Number [facility] [place] [address] * POCT glucose (05/23/2025 5:12 PM CDT) Glucose, POC 128 70 - 199 mg/dL Blood 05/23/2025 5:12 PM CDT 05/23/2025 5:12 PM CDT Addy Tapia MD LAB POCT ORDERABLES - DE VICE Final Result Performing Organization Address [facility] de Phone Number [facility] [place] [address] * Oxyhemoglobin, pulmonary artery (05/23/2025 4:08 PM CDT) Oxyhemoglobin, PA 65.8 % Comment: Interpretive Data No reference range established. Current interpretive data was last revised 2020. Blood 05/23/2025 4:08 PM CDT 05/23/2025 4:24 PM CDT Addy Tapia MD LAB BLOOD ORDERABLES Fin al Result Performing Organization Address [facility] de Phone Number [facility] [place] [address] * (ABNORMAL) Hemoglobin total, pulmonary artery (05/23/2025 4:08 PM CDT) Hemoglobin total, PA 8.8(L) 13.0 - 17.5 g/dL Blood 05/23/2025 4:08 PM CDT 05/23/2025 4:24 PM CDT Zev Cowart MD PhD LAB BLOOD ORDERABLES Fi nal Result Performing Organization Address [facility] Co de Phone Number [facility] [place] [address] * Potassium, whole blood (05/23/2025 4:08 PM CDT) Potassium, bld 4.5 3.3 - 4.9 mmol/L Blood 05/23/2025 4:08 PM CDT 05/23/2025 4:23 PM CDT Bar Gamble MD LAB BLOOD ORDERABLES Final R esult Performing Organization Address [facility] Co de Phone Number DULCE MARIA [facility] Department [place] [address] * (ABNORMAL) eGFR (05/23/2025 4:08 PM CDT) [...] ORDERABLES Fin al Result Performing Organization Address [facility] Co de Phone Number DULCE MARIA [facility] Department [place] [address] * (ABNORMAL) Blood gas, arterial (05/23/2025 4:08 PM CDT) pH, Art 7.43 7.35 - 7.45 PCO2, Arterial 34(L) 35 - 45 mmHg [facility] PO2, Arterial 83 83 - 108 mmHg [facility] HCO3 Art (Calculated) 23 20 - 30 mmol/L [facility] BE, art -2 mmol/L [facility] Comment: Interpretive Data No Reference Range Established Current Interpretive Data was last revised on 2017 O2 Sat Art (Measured) 97(H) 90 - 95 % [facility] Blood 05/23/2025 4:08 PM CDT 05/23/2025 4:23 PM CDT Addy Tapia MD LAB BLOOD ORDERABLES Fin al Result [facility] [place] [address] * (ABNORMAL) Basic metabolic panel (05/23/2025 4:08 PM CDT) Sodium 136 135 - 145 mmol/L Potassium, pl 4.8 3.3 - 4.9 mmol/L [facility] Comment:Hemolyzed; Potassium value may be falsely elevated by as much as 0.3-0.5 mmol/L. Suggest redraw and reanalysis. Chloride 99 97 - 110 mmol/L [facility] CO2 23 22 - 32 mmol/L [facility] Anion gap 14 2 - 15 mmol/L [facility] BUN 67(H) 6 - 25 mg/dL [facility] Creatinine 2.23(H) 0.80 - 1.30 mg/dL [facility] Glucose 122 70 - 199 mg/dL [facility] Comment: Interpretive Data Fasting glucose >/= 126 [...] 2022. Calcium 9.1 8.5 - 10.3 mg/dL [facility] Blood 05/23/2025 4:08 PM CDT 05/23/2025 4:43 PM CDT Addy Tapia MD LAB BLOOD ORDERABLES Fin al Result Performing Organization Address City/[facility]/ZIP Co de Phone Number DULCE MARIA [facility] [place] [address] * POCT glucose (05/23/2025 4:04 PM CDT) Glucose, POC 127 70 - 199 mg/dL Blood 05/23/2025 4:04 PM CDT 05/23/2025 4:04 PM CDT Addy Tapia MD LAB POCT ORDERABLES - DE VICE Final Result Performing Organization Address [facility] Co de Phone Number DULCE MARIA [facility] [place] [address] * TRANSTHORACIC ECHO (TTE) COMPLETE W DOPPLER/CF W CONTRAST (05/23/2025 3:20 PM CDT) Pathologist [facility] EF Mod BP 81 % CONS SCIMAGE Anatomical Region Laterality Modality Ultrasound 05/23/2025 1:34 PM CDT Narrative 05/23/2025 3:27 PM CDT [facility] [place] [address] Transthoracic Echocardiographic Report Patient Name: GOSIA ZUNIGA W : 1965 (60y ) Gender: M Study Date: 05/23/2025 01:34:35 PM Ht(Inch): 72 Wt(Lb): 166.89 BSA: 1.96 Professor Of Psychology: Teagan Henderson RDCS Location: [id number] Order Provider: ADDY TAPIA Heart Rate: 105 [...] Note Dmitry Araya MD PhD - 05/23/2025 [facility] [place] [address] Transthoracic Echocardiographic Report Patient Name: GOSIA ZUNIGA W : 1965 (60y ) Gender: M Study Date: 05/23/2025 01:34:35 PM Ht(Inch): 72 Wt(Lb): 166.89 BSA: 1.96 Professor Of Psychology: Teagan Henderson RDCS Location: [id number] Order Provider:ADDY TAPIA Heart Rate: 105 BMI: [...] LA Length 2C 7.62 cm MV Decel Hezp093.15 msec [ 104.00 - 258.00 ] LA [...] 5.00 ] PV Peak PG4.00 mmHg RA Sypymz85.65 ml RA Volume Index18.19 ml/m2 AoR Diam 2D 3.07 cm [ 3.10 - 3.70 ] Ao Root Index 1.57 cm/m2 [ 1.00 - 2.00 ] Asc Ao Diam 2D2.60 cm Asc Ao Index1.33 cm/m2 Electronically Signed By: Dmitry Araya M.D. 05/23/2025 3:27:01 PM CDT Addy Tapia MD CV ECHO PROCEDURES Final Result * POCT glucose (05/23/2025 3:03 PM CDT) Glucose, POC 87 70 - 199 mg/dL Blood 05/23/2025 3:03 PM CDT 05/23/2025 3:03 PM CDT Addy Tapia MD LAB POCT ORDERABLES - DE VICE Final Result DULCE MARIA [facility] [place] [address] * POCT glucose (05/23/2025 2:17 PM CDT) Glucose, POC 89 70 - 199 mg/dL Blood 05/23/2025 2:17 PM CDT 05/23/2025 2:17 PM CDT Addy Tapia MD LAB POCT ORDERABLES - DE VICE Final Result Performing Organization Address [facility] Co de Phone Number [facility] [place] [employer] [place] [address] * POCT glucose (05/23/2025 1:04 PM CDT) Glucose, POC 149 70 - 199 mg/dL Blood 05/23/2025 1:04 PM CDT 05/23/2025 1:04 PM CDT Addy Tapia MD LAB POCT ORDERABLES - DE VICE Final Result Performing Organization Address [facility] Co de Phone Number [facility] [place] [address] * Oxyhemoglobin, pulmonary artery (05/23/2025 12:11 PM CDT) Pathologist [facility] Oxyhemoglobin, PA 66.1 % Comment: Interpretive Data No reference range established. Current interpretive data was last revised 2020. Blood 05/23/2025 12:1 1 PM CDT 05/23/2025 12:18 PM CDT Result [facility] Addy Tapia MD LAB BLOOD ORDERABLES Fin al Result Performing Organization Address City/[facility] Co de Phone Number [facility] [place] [address] * (ABNORMAL) Hemoglobin total, pulmonary artery (05/23/2025 12:11 PM CDT) Pathologist [facility] Hemoglobin total, PA 8.6(L) 13.0 - 17.5 g/dL Blood 05/23/2025 12:1 1 PM CDT 05/23/2025 12:18 PM CDT Zev Cowart MD PhD LAB BLOOD ORDERABLES Fi nal Result Performing Organization Address [facility] Co de Phone Number [facility] [place] [address] * (ABNORMAL) Hemoglobin total, pulmonary artery (05/23/2025 12:11 PM CDT) Hemoglobin total, PA 8.8(L) 13.0 - 17.5 g/dL Blood 05/23/2025 12:1 1 PM CDT 05/23/2025 12:18 PM CDT Bar Gamble MD LAB BLOOD ORDERABLES Final R esult Performing Organization Address [facility] Co de Phone Number [facility] Department [place] [address] * Potassium, whole blood (05/23/2025 12:11 PM CDT) Pathologist [facility] Potassium, bld 4.5 3.3 - 4.9 mmol/L Blood 05/23/2025 12:1 1 PM CDT 05/23/2025 12:18 PM CDT Bar Gamble MD LAB BLOOD ORDERABLES Final R esult Performing Organization Address [facility] Co de Phone Number [facility] [place] [address] * (ABNORMAL) Blood gas, arterial (05/23/2025 12:11 PM CDT) pH, Art 7.42 7.35 - 7.45 PCO2, Arterial 35 35 - 45 mmHg [facility] PO2, Arterial 78(L) 83 - 108 mmHg [facility] HCO3 Art (Calculated) 23 20 - 30 mmol/L [facility] BE, art -1 mmol/L [facility] Comment: Interpretive Data No Reference Range Established Current Interpretive Data was last revised on 2017 O2 Sat Art (Measured) 96(H) 90 - 95 % [facility] Blood 05/23/2025 12:1 1 PM CDT 05/23/2025 12:18 PM CDT Addy Tapia MD LAB BLOOD ORDERABLES Fin al Result [facility] [place] [address] * POCT glucose (05/23/2025 12:05 PM CDT) Glucose, POC 191 70 - 199 mg/dL Blood 05/23/2025 12:0 5 PM CDT 05/23/2025 12:05 PM CDT Addy Tapia MD LAB POCT ORDERABLES - DE VICE Final Result Performing Organization Address City/[facility] Co de Phone Number [facility] [place] [address] * (ABNORMAL) POCT glucose (05/23/2025 11:07 AM CDT) Glucose, POC 234(H) 70 - 199 mg/dL Blood 05/23/2025 11:0 7 AM CDT 05/23/2025 11:07 AM CDT Addy Tapia MD LAB POCT ORDERABLES - DE VICE Final Result Performing Organization Address City/[facility] Co de Phone Number [facility] [place] [address] * Critical Care (05/23/2025 10:21 AM CDT) [...] plan with the ICU team and other medical/oncology consultant staff, making frequent assessments and decisions [...] 0 AM CDT 05/23/2025 10:00 AM CDT us Addy Tapia MD LAB POCT ORDERABLES - DE VICE Final Result [facility] [place] [address] * POCT glucose (05/23/2025 8:56 AM CDT) Glucose, POC 186 70 - 199 mg/dL Blood 05/23/2025 8:56 AM CDT 05/23/2025 8:56 AM CDT Addy Tapia MD LAB POCT ORDERABLES - DE VICE Final Result Performing Organization Address [facility] [place] [address] * Oxyhemoglobin, pulmonary artery (05/23/2025 7:58 AM CDT) Oxyhemoglobin, PA 70.8 % Comment: Interpretive Data No reference range established. Current interpretive data was last revised 2020. Blood 05/23/2025 7:58 AM CDT 05/23/2025 8:17 AM CDT Addy Tapia MD LAB BLOOD ORDERABLES Fin al Result Performing Organization Address [facility] [place] [address] * (ABNORMAL) Hemoglobin total, pulmonary artery (05/23/2025 7:58 AM CDT) Hemoglobin total, PA 8.1(L) 13.0 - 17.5 g/dL Blood 05/23/2025 7:58 AM CDT 05/23/2025 8:17 AM CDT Zev Cowart MD PhD LAB BLOOD ORDERABLES Fi nal Result Performing Organization Address [facility] Co de Phone Number [facility] [place] [address] * Potassium, whole blood (05/23/2025 7:58 AM CDT) Potassium, bld 4.4 3.3 - 4.9 mmol/L Blood 05/23/2025 7:58 AM CDT 05/23/2025 8:17 AM CDT Bar Gamble MD LAB BLOOD ORDERABLES Final R esult Performing Organization Address [facility] Co de Phone Number [facility] Department [place] [address] * (ABNORMAL) Blood gas, arterial (05/23/2025 7:58 AM CDT) pH, Art 7.40 7.35 - 7.45 PCO2, Arterial 38 35 - 45 mmHg [facility] PO2, Arterial 110(H) 83 - 108 mmHg [facility] HCO3 Art (Calculated) 24 20 - 30 mmol/L [facility] BE, art -1 mmol/L [facility] Comment: Interpretive Data No Reference Range Established Current Interpretive Data was last revised on 2017 O2 Sat Art (Measured) 99(H) 90 - 95 % [facility] Blood 05/23/2025 7:58 AM CDT 05/23/2025 8:17 AM CDT Addy Tapia MD LAB BLOOD ORDERABLES Fin al Result Performing Organization Address [facility] Co de Phone Number [facility] Department [place] [address] * POCT glucose (05/23/2025 7:57 AM CDT) Glucose, POC 142 70 - 199 mg/dL Blood 05/23/2025 7:57 AM CDT 05/23/2025 7:57 AM CDT Addy Tapia MD LAB POCT ORDERABLES - DE VICE Final Result Performing Organization Address [facility]/ZIP Co de Phone Number [facility] [place] [address] * POCT glucose (05/23/2025 7:01 AM CDT) Glucose, POC 136 70 - 199 mg/dL Blood 05/23/2025 7:01 AM CDT 05/23/2025 7:01 AM CDT Addy Tapia MD LAB POCT ORDERABLES - DE VICE Final Result Performing Organization Address [facility] [place] [address] * Tacrolimus level trough (05/23/2025 6:42 AM CDT) [facility] Tacrolimus trough 5.8 ng/mL Comment: Interpretive Data Testing performed by liquid chromatography-tandem mass spectrometry. Therapeutic concentrations vary depending on type of transplanted organ and time elapsed since transplant. Typical trough concentrations range from 5-15 ng/mL. This test was developed and its performance characteristics determined by the [facility] consistent with CLIA requirements. This test has not been cleared or approved by the [place] Food and Drug administration. Current interpretive data last reviewed 2020. Blood 05/23/2025 6:42 AM CDT 05/23/2025 6:53 AM CDT us Zev Cowart MD PhD LAB BLOOD ORDERABLES Fi nal Result Performing Organization Address [facility] Co de Phone Number [facility] [place] [address] * POCT glucose (05/23/2025 5:56 AM CDT) Glucose, POC 114 70 - 199 mg/dL Blood 05/23/2025 5:56 AM CDT 05/23/2025 5:56 AM CDT Addy Tapia MD LAB POCT ORDERABLES - DE VICE Final Result Performing Organization Address [facility] Co de Phone Number [facility] [place] [address] * POCT glucose (05/23/2025 4:13 AM CDT) Glucose, POC 130 70 - 199 mg/dL Blood 05/23/2025 4:13 AM CDT 05/23/2025 4:13 AM CDT Addy Tapia MD LAB POCT ORDERABLES - DE VICE Final Result Performing Organization Address [facility] Co id Phone Number [facility] [place] [address] * POCT glucose (05/23/2025 2:51 AM CDT) Glucose, POC 136 70 - 199 mg/dL Blood 05/23/2025 2:51 AM CDT 05/23/2025 2:51 AM CDT Addy Tapia MD LAB POCT ORDERABLES - DE VICE Final Result Performing Organization Address [facility] Co de Phone Number [facility] Department [place] [address] * POCT glucose (05/23/2025 1:57 AM CDT) Glucose, POC 123 70 - 199 mg/dL Blood 05/23/2025 1:57 AM CDT 05/23/2025 1:57 AM CDT Addy Tapai MD LAB POCT ORDERABLES - DE VICE Final Result Performing Organization Address [facility] [place] [address] * POCT glucose (05/23/2025 1:14 AM CDT) Glucose, POC 97 70 - 199 mg/dL Blood 05/23/2025 1:14 AM CDT 05/23/2025 1:14 AM CDT Addy Tapia MD LAB POCT ORDERABLES - DE VICE Final Result Performing Organization Address City/[facility]/[place] [address] * POCT glucose (05/23/2025 12:15 AM CDT) Glucose, POC 137 70 - 199 mg/dL Blood 05/23/2025 12:1 5 AM CDT 05/23/2025 12:15 AM CDT Addy Tapia MD LAB POCT ORDERABLES - DE VICE Final Result Performing Organization Address [facility] [place] [address] * Oxyhemoglobin, pulmonary artery (05/23/2025 12:11 AM CDT) Oxyhemoglobin, PA 67.9 % Comment: Interpretive Data No reference range established. Current interpretive data was last revised 2020. Blood 05/23/2025 12:1 1 AM CDT 05/23/2025 1:07 AM CDT Addy Tapia MD LAB BLOOD ORDERABLES Fin al Result Performing Organization Address City/[facility]/ZIP Co de Phone Number [facility] [place] [address] * (ABNORMAL) Hemoglobin total, pulmonary artery (05/23/2025 12:11 AM CDT) Hemoglobin total, PA 7.5(L) 13.0 - 17.5 g/dL Blood 05/23/2025 12:1 1 AM CDT 05/23/2025 1:07 AM CDT Addy Tapia MD LAB BLOOD ORDERABLES Fin al Result Performing Organization Address City/[facility] Co de Phone Number [facility] Department [place] [address] * Potassium, whole blood (05/23/2025 12:11 AM CDT) Potassium, bld 4.2 3.3 - 4.9 mmol/L Blood 05/23/2025 12:1 1 AM CDT 05/23/2025 1:07 AM CDT us Zev Cowart MD PhD LAB BLOOD ORDERABLES Fi nal Result Performing Organization Address [facility] Co de Phone Number [facility] Department [place] [address] * (ABNORMAL) eGFR (05/23/2025 12:11 AM CDT) [...] Inclusion of Race in Diagnosing Kidney Disease, MARY 2020). The CKD-EPI equation should not be used for patients with unstable renal function and has not been validated in children and those over 70. Current interpretive data was last reviewed 2021. Blood 05/23/2025 12:1 1 AM CDT 05/23/2025 1:27 AM CDT us Bar Gamble MD LAB BLOOD ORDERABLES Final R esult Performing Organization Address [facility] Co de Phone Number [facility] Department [place] [address] * (ABNORMAL) CBC without differential (05/23/2025 12:11 AM CDT) WBC 18.29(H) 3.80 - 9.90 K/cumm Hgb 7.9(L) 13.0 - 17.5 g/dL [facility] Hct 23.8(L) 38.9 - 50.3 % [facility] Plt 129(L) 150 - 400 K/cumm [facility] MPV 11.9 9.1 - 12.3 fL [facility] RBC 2.89(L) 4.30 - 5.80 M/cumm [facility] MCV 82.4 81.3 - 96.4 fL [facility] MCH 27.3 27.1 - 33.3 pg [facility] MCHC 33.2 32.3 - 35.7 g/dL [facility] RDW CV 15.2(H) 11.1 - 14.9 % [facility] RDW SD 46.2 35.7 - 48.1 fL [facility] NRBC abs 0.00 0.00 - 0.01 K/cumm [facility] Blood 05/23/2025 12:1 1 AM CDT 05/23/2025 1:28 AM CDT us Zev Cowart MD PhD LAB BLOOD ORDERABLES Fi nal Result Performing Organization Address [facility]/ZIP Co de Phone Number [facility] Department [place] [address] * (ABNORMAL) Phosphorus (05/23/2025 12:11 AM CDT) Phosphorus, pl 5.6(H) 2.3 - 4.5 mg/dL Blood 05/23/2025 12:1 1 AM CDT 05/23/2025 1:27 AM CDT Zev Cowart MD PhD LAB BLOOD ORDERABLES Fi nal Result Performing Organization Address City/[facility] [place] [address] * (ABNORMAL) Magnesium (05/23/2025 12:11 AM CDT) [facility] Magnesium 2.6(H) 1.4 - 2.5 mg/dL Blood 05/23/2025 12:1 1 AM CDT 05/23/2025 1:27 AM CDT Zev Cowart MD PhD LAB BLOOD ORDERABLES Fi nal Result Performing Organization Address [facility] [place] [address] * (ABNORMAL) Blood gas, arterial (05/23/2025 12:11 AM CDT) Pathologist [facility] pH, Art 7.41 7.35 - 7.45 PCO2, Arterial 38 35 - 45 mmHg [facility] PO2, Arterial 85 83 - 108 mmHg [facility] HCO3 Art (Calculated) 25 20 - 30 mmol/L [facility] BE, art 0 mmol/L [facility] Comment: Interpretive Data No Reference Range Established Current Interpretive Data was last revised on 2017 O2 Sat Art (Measured) 97(H) 90 - 95 % [facility] Blood 05/23/2025 12:1 1 AM CDT 05/23/2025 1:07 AM CDT Addy Tapia MD LAB BLOOD ORDERABLES Fin al Result Performing Organization Address City/[facility]/ZIP Co de Phone Number [facility] Department [place] [address] * (ABNORMAL) Hepatic function panel (05/23/2025 12:11 AM CDT) Bilirubin, total 0.8 0.1 - 1.2 mg/dL Bilirubin, direct 0.5(H) 0.1 - 0.3 mg/dL [facility] Protein, pl 5.9(L) 6.5 - 8.5 g/dL [facility] Albumin 3.8 3.5 - 5.0 g/dL [facility] Alk phos 137(H) 40 - 130 Units/L [facility] ALT 22 7 - 55 Units/L [facility] AST 56(H) 10 - 50 Units/L [facility] Blood 05/23/2025 12:1 1 AM CDT 05/23/2025 1:27 AM CDT Bar Gamble MD LAB BLOOD ORDERABLES Final R esult Performing Organization Address [facility] Co de Phone Number [facility] Department [place] [address] * (ABNORMAL) Basic metabolic panel (05/23/2025 12:11 AM CDT) Sodium 135 135 - 145 mmol/L Potassium, pl 4.3 3.3 - 4.9 mmol/L [facility] Chloride 99 97 - 110 mmol/L [facility] CO2 34(H) 22 - 32 mmol/L [facility] Anion gap 2 2 - 15 mmol/L [facility] BUN 54(H) 6 - 25 mg/dL [facility] Creatinine 2.12(H) 0.80 - 1.30 mg/dL [facility] Glucose 130 70 - 199 mg/dL [facility] Comment: Interpretive Data Fasting glucose >/= 126 [...] 2022. Calcium 9.2 8.5 - 10.3 mg/dL [facility] Blood 05/23/2025 12:1 1 AM CDT 05/23/2025 1:27 AM CDT Bar Gamble MD LAB BLOOD ORDERABLES Final R esult Performing Organization Address [facility] de Phone Number [facility] Department [place] [address] * POCT glucose (05/22/2025 11:10 PM CDT) Glucose, POC 174 70 - 199 mg/dL Blood 05/22/2025 11:1 0 PM CDT 05/22/2025 11:10 PM CDT Addy Tapia MD LAB POCT ORDERABLES - DE VICE Final Result Performing Organization Address [facility] de Phone Number [facility] [place] [address] * (ABNORMAL) POCT glucose (05/22/2025 10:08 PM CDT) Glucose, POC 220(H) 70 - 199 mg/dL Blood 05/22/2025 10:0 8 PM CDT 05/22/2025 10:08 PM CDT Addy Tapia MD LAB POCT ORDERABLES - DE VICE Final Result Performing Organization Address [facility]/ZIP Co de Phone Number DULCE MARIA ARANDA [facility] [place] [address] * (ABNORMAL) POCT glucose (05/22/2025 9:12 PM CDT) Glucose, POC 208(H) 70 - 199 mg/dL Blood 05/22/2025 9:12 PM CDT 05/22/2025 9:12 PM CDT us Addy Jamar Tapia MD LAB POCT ORDERABLES - DE VICE Final Result Performing Organization Address [facility] Co de Phone Number DULCE MARIA [facility] [place] [address] * XR Chest 1 View (05/22/2025 8:59 PM CDT) Anatomical Region Laterality Modality Body, Chest N/A Computed Radiogr aphy 05/23/2025 10:0 9 AM CDT Impressions 05/23/2025 10:24 AM CDT The current study is compared with the prior radiograph dated 05/22/2025 at 5:04 AM A right internal jugular vein approach Packwood-Jayne catheter is in place, tip overlies the [...] AM A right internal jugular vein approach Packwood-Jayne catheter is in place, tip overlies the [...] 8:05 PM CDT 05/22/2025 8:05 PM CDT Addy Tapia MD LAB POCT ORDERABLES - DE VICE Final Result Performing Organization Address [facility] Co de Phone Number [facility] [place] [address] * (ABNORMAL) POCT glucose (05/22/2025 7:14 PM CDT) Glucose, POC 231(H) 70 - 199 mg/dL Blood 05/22/2025 7:14 PM CDT 05/22/2025 7:14 PM CDT Addy Tapia MD LAB POCT ORDERABLES - DE VICE Final Result Performing Organization Address [facility] Co de Phone Number [facility] [place] [address] * (ABNORMAL) POCT glucose (05/22/2025 6:25 PM CDT) Glucose, POC 222(H) 70 - 199 mg/dL Blood 05/22/2025 6:25 PM CDT 05/22/2025 6:25 PM CDT Addy Tapia MD LAB POCT ORDERABLES - DE VICE Final Result Performing Organization Address [facility] Co id Phone Number [facility] [place] [address] * POCT glucose (05/22/2025 5:17 PM CDT) Glucose, POC 121 70 - 199 mg/dL Blood 05/22/2025 5:17 PM CDT 05/22/2025 5:17 PM CDT Addy Tapia MD LAB POCT ORDERABLES - DE VICE Final Result Performing Organization Address [facility] Phone Number [facility] [place] [address] * POCT glucose (05/22/2025 4:24 PM CDT) Glucose, POC 185 70 - 199 mg/dL Blood 05/22/2025 4:24 PM CDT 05/22/2025 4:24 PM CDT Addy Tapia MD LAB POCT ORDERABLES - DE VICE Final Result Performing Organization Address [facility] Phone Number [facility] [place] [address] * (ABNORMAL) Hemoglobin total, pulmonary artery (05/22/2025 4:14 PM CDT) Hemoglobin total, PA 8.2(L) 13.0 - 17.5 g/dL Blood 05/22/2025 4:14 PM CDT 05/22/2025 4:35 PM CDT us Bar Gamble MD LAB BLOOD ORDERABLES Final R esult Performing Organization Address [facility] Co de Phone Number DULCE MARIA [facility] [place] [address] * (ABNORMAL) eGFR (05/22/2025 4:14 PM CDT) [...] ORDERABLES Final R esult Performing Organization Address City/[facility]/ZIP Co de Phone Number DULCE MARIA [facility] [place] [address] * (ABNORMAL) Hepatitis C genotype Blood (05/22/2025 4:14 PM CDT) HCV genotype 1a(A) Undetected Comment: ADDITIONAL INFORMATION This test was performed using the [employer] RealTime HCV Genotype II assay ([employer] [place], [place]). Test Performed by: [facility] [address] [place] [address] Junior Engineer: Milagros Henriquez Ph.D.; CLIA# [id number] Blood 05/22/2025 4:14 PM CDT 05/22/2025 4:47 PM CDT us Lindsay Arciniega MD LAB MICROBIOLOGY - GENERAL ORDER LINH Final Result [facility] [place] [address] * (ABNORMAL) Basic metabolic panel (05/22/2025 4:14 PM CDT) Sodium 133(L) 135 - 145 mmol/L Potassium, pl 4.2 3.3 - 4.9 mmol/L [facility] Chloride 97 97 - 110 mmol/L [facility] CO2 26 22 - 32 mmol/L [facility] Anion gap 10 2 - 15 mmol/L [facility] BUN 48(H) 6 - 25 mg/dL [facility] Creatinine 1.85(H) 0.80 - 1.30 mg/dL [facility] Glucose 176 70 - 199 mg/dL [facility] Comment: Interpretive Data Fasting glucose >/= 126 [...] 2022. Calcium 9.2 8.5 - 10.3 mg/dL [facility] Blood 05/22/2025 4:14 PM CDT 05/22/2025 4:43 PM CDT Result [facility] Bar Gamble MD LAB BLOOD ORDERABLES Final R esult Performing Organization Address [facility] Co de Phone Number [facility] [place] [address] * (ABNORMAL) POCT glucose (05/22/2025 2:58 PM CDT) Glucose, POC 246(H) 70 - 199 mg/dL Blood 05/22/2025 2:58 PM CDT 05/22/2025 2:58 PM CDT Result [facility] Addy Tapia MD LAB POCT ORDERABLES - DE VICE Final Result Performing Organization Address [facility] de Phone Number [facility] [place] [address] * (ABNORMAL) POCT glucose (05/22/2025 2:52 PM CDT) Glucose, POC 255(H) 70 - 199 mg/dL Blood 05/22/2025 2:52 PM CDT 05/22/2025 2:52 PM CDT Result [facility] Addy Tapia MD LAB POCT ORDERABLES - DE VICE Final Result Performing Organization Address [facility] [place] [address] * Oxyhemoglobin, central venous (05/22/2025 2:48 PM CDT) Oxyhemoglobin, CV 82.3 % Comment: Interpretive Data No reference range established. Current interpretive data was last revised 2020. Blood 05/22/2025 2:48 PM CDT 05/22/2025 2:52 PM CDT Result [facility] Addy Tapia MD LAB BLOOD ORDERABLES Fin al Result Performing Organization Address [facility] Co de Phone Number [facility] [place] [address] * (ABNORMAL) Blood gas, arterial (05/22/2025 2:48 PM CDT) pH, Art 7.40 7.35 - 7.45 PCO2, Arterial 37 35 - 45 mmHg [facility] PO2, Arterial 107 83 - 108 mmHg [facility] HCO3 Art (Calculated) 24 20 - 30 mmol/L [facility] BE, art -1 mmol/L [facility] Comment: Interpretive Data No Reference Range Established Current Interpretive Data was last revised on 2017 O2 Sat Art (Measured) 98(H) 90 - 95 % [facility] Blood 05/22/2025 2:48 PM CDT 05/22/2025 2:52 PM CDT Result [facility] Addy Tapia MD LAB BLOOD ORDERABLES Fin al Result Performing Organization Address [facility] de Phone Number [facility] [place] [address] * Oxyhemoglobin, central venous (05/22/2025 1:33 PM CDT) Pathologist [facility] Oxyhemoglobin, CV 94.3 % Comment: Interpretive Data No reference range established. Current interpretive data was last revised 2020. Blood 05/22/2025 1:33 PM CDT 05/22/2025 1:42 PM CDT Addy Tapia MD LAB BLOOD ORDERABLES Fin al Result Performing Organization Address City/[facility] Co de Phone Number [facility] [place] [address] * Oxyhemoglobin, pulmonary artery (05/22/2025 1:33 PM CDT) Oxyhemoglobin, PA 96.9 % Comment: Interpretive Data No reference range established. Current interpretive data was last revised 2020. Blood 05/22/2025 1:33 PM CDT 05/22/2025 1:42 PM CDT Addy Tapia MD LAB BLOOD ORDERABLES Fin al Result Performing Organization Address [facility] [place] [address] * (ABNORMAL) Hemoglobin total, pulmonary artery (05/22/2025 1:33 PM CDT) Hemoglobin total, PA 7.3(L) 13.0 - 17.5 g/dL Blood 05/22/2025 1:33 PM CDT 05/22/2025 1:42 PM CDT Zev Cowart MD PhD LAB BLOOD ORDERABLES Fi nal Result Performing Organization Address [facility] Co de Phone Number [facility] [place] [address] * Critical Care (05/22/2025 12:36 PM CDT) [...] plan with the patient's team and other medical/oncology consultant staff. This time was in addition [...] spent time documenting in the medical record Stephanie Hood MD IN CLINIC/BEDSIDE ORDERA BLES Final Result * POCT glucose (05/22/2025 12:15 PM CDT) Glucose, POC 183 70 - 199 mg/dL Blood 05/22/2025 12:1 5 PM CDT 05/22/2025 12:15 PM CDT Result [facility] Addy Tapia MD LAB POCT ORDERABLES - DE VICE Final Result Performing Organization Address [place] [facility] [facility] Co de Phone Number [facility] [place] [address] * (ABNORMAL) POCT glucose (05/22/2025 11:16 AM CDT) Glucose, POC 209(H) 70 - 199 mg/dL Blood 05/22/2025 11:1 6 AM CDT 05/22/2025 11:16 AM CDT Addy Tapia MD LAB POCT ORDERABLES - DE VICE Final Result [facility] [place] [address] * Oxyhemoglobin, central venous (05/22/2025 9:04 AM CDT) Oxyhemoglobin, CV 88.6 % Comment: Interpretive Data No reference range established. Current interpretive data was last revised 2020. Blood 05/22/2025 9:04 AM CDT 05/22/2025 9:11 AM CDT Addy Tapia MD LAB BLOOD ORDERABLES Fin al Result Performing Organization Address [facility] Co de Phone Number [facility] [place] [address] * Oxyhemoglobin, pulmonary artery (05/22/2025 9:04 AM CDT) Pathologist [facility] Oxyhemoglobin, PA 95.2 % Comment: Interpretive Data No reference range established. Current interpretive data was last revised 2020. Blood 05/22/2025 9:04 AM CDT 05/22/2025 9:12 AM CDT Zev Cowart MD PhD LAB BLOOD ORDERABLES Fi nal Result Performing Organization Address [facility] de Phone Number [facility] [place] [address] * (ABNORMAL) Hemoglobin total, pulmonary artery (05/22/2025 9:04 AM CDT) [facility] Hemoglobin total, PA 7.5(L) 13.0 - 17.5 g/dL Blood 05/22/2025 9:04 AM CDT 05/22/2025 9:12 AM CDT Zev Cowart MD PhD LAB BLOOD ORDERABLES Fi nal Result Performing Organization Address [facility] Co de Phone Number [facility] [place] [address] * (ABNORMAL) POC Blood Gas and Chemistries, Arterial - (05/22/2025 8:09 AM CDT) pH, Art POC 7.44 7.35 - 7.45 pCO2, Art POC 40 35 - 45 mmHg [facility] pO2, Art POC 100 83 - 108 mmHg [facility] Na, POC 136 135 - 145 mmol/L [facility] K POC 4.4 3.3 - 4.9 mmol/L [facility] Comment: Interpretive Data Not all point of care methods assess for hemolysis. Confirm with instrument and retest K+ if not consistent with clinical signs and symptoms. Current Interpretive Data was last revised on 2024. Cl, POC 103 97 - 110 mmol/L [facility] Ionized Ca, POC 4.69 4.50 - 5.10 mg/dL [facility] Glucose, POC 145 70 - 199 mg/dL [facility] Lactate POC 1.0 0.7 - 2.0 mmol/L [facility] SO2 (sameer) arterial 98(H) 90 - 95 % [facility] Base excess, POC 2.8 mmol/L [facility] HCO3, Art POC 27 20 - 30 mmol/L [facility] Hct, POC 40.0(L) 41.4 - 51.6 % [facility] Total Hb, POC 13.2(L) 13.8 - 17.2 g/dL [facility] Blood 05/22/2025 8:09 AM CDT 05/22/2025 8:09 AM CDT Addy Tapia MD LAB POCT ORDERABLES - DE VICE Final Result [facility] [place] [address] * (ABNORMAL) Hemoglobin total, pulmonary artery (05/22/2025 8:06 AM CDT) Hemoglobin total, PA 7.7(L) 13.0 - 17.5 g/dL Blood 05/22/2025 8:06 AM CDT 05/22/2025 8:11 AM CDT us Zev Cowart MD PhD LAB BLOOD ORDERABLES Fi nal Result Performing Organization Address [facility]/ZIP Co de Phone Number [facility] [place] [address] * POCT glucose (05/22/2025 5:59 AM CDT) Glucose, POC 133 70 - 199 mg/dL Blood 05/22/2025 5:59 AM CDT 05/22/2025 5:59 AM CDT Addy Tapia MD LAB POCT ORDERABLES - DE VICE Final Result Performing Organization Address [facility] Co de Phone Number [facility] [place] [address] * (ABNORMAL) Hemoglobin total, pulmonary artery (05/22/2025 5:27 AM CDT) Hemoglobin total, PA 8.3(L) 13.0 - 17.5 g/dL Blood 05/22/2025 5:27 AM CDT 05/22/2025 5:46 AM CDT Bar Gamble MD LAB BLOOD ORDERABLES Final R esult Performing Organization Address [facility] Co de Phone Number [facility] Department [place] [address] * Tacrolimus level trough (05/22/2025 5:27 AM CDT) Tacrolimus trough 3.0 ng/mL Comment: Interpretive Data Testing performed by liquid chromatography-tandem mass spectrometry. Therapeutic concentrations vary depending on type of transplanted organ and time elapsed since transplant. Typical trough concentrations range from 5-15 ng/mL. This test was developed and its performance characteristics determined by the [facility] consistent with CLIA requirements. This test has not been cleared or approved by the [place] Food and Drug administration. Current interpretive data last reviewed 2020. Blood 05/22/2025 5:27 AM CDT 05/22/2025 5:46 AM CDT us Zev Cowart MD PhD LAB BLOOD ORDERABLES Fi nal Result [facility] [place] [address] * POCT glucose (05/22/2025 5:26 AM CDT) Glucose, POC 127 70 - 199 mg/dL Blood 05/22/2025 5:26 AM CDT 05/22/2025 5:26 AM CDT Addy Tapia MD LAB POCT ORDERABLES - DE VICE Final Result Performing Organization Address [facility] Co de Phone Number [facility] Department [place] [address] * XR Chest 1 View (05/22/2025 5:13 AM CDT) Anatomical Region Laterality Modality Body, Chest N/A Digital Radiogra phy 05/22/2025 11:1 6 AM CDT Impressions 05/22/2025 2:26 PM CDT First exam: Interval extubation. Right internal jugular central venous catheter with tip overlying the superior vena cava. Right internal jugular Packwood-Jayne catheter tip overlies the main pulmonary artery. [...] the superior vena cava. Right internal jugular Packwood-Jayne catheter tip overlies the main pulmonary artery. [...] * POCT glucose (05/22/2025 3:05 AM CDT) Glucose, POC 111 70 - 199 mg/dL Blood 05/22/2025 3:05 AM CDT 05/22/2025 3:05 AM CDT us Addy Tapia MD LAB POCT ORDERABLES - DE VICE Final Result [facility] [place] [address] * (ABNORMAL) Blood gas, arterial (05/22/2025 1:35 AM CDT) pH, Art 7.50(H) 7.35 - 7.45 PCO2, Arterial 43 35 - 45 mmHg [facility] PO2, Arterial 91 83 - 108 mmHg [facility] HCO3 Art (Calculated) 35(H) 20 - 30 mmol/L [facility] BE, art 9 mmol/L [facility] Comment: Interpretive Data No Reference Range Established Current Interpretive Data was last revised on 2017 O2 Sat Art (Measured) 98(H) 90 - 95 % [facility] Blood 05/22/2025 1:35 AM CDT 05/22/2025 1:40 AM CDT Addy Tapia MD LAB BLOOD ORDERABLES Fin al Result Performing Organization Address [facility]/ZIP Co de Phone Number [facility] [place] [employer] [place] [address] * POCT glucose (05/22/2025 1:30 AM CDT) Glucose, POC 109 70 - 199 mg/dL Blood 05/22/2025 1:30 AM CDT 05/22/2025 1:30 AM CDT Addy Tapia MD LAB POCT ORDERABLES - DE VICE Final Result Performing Organization Address [facility] Co de Phone Number [facility] [place] [address] * POCT glucose (05/22/2025 12:26 AM CDT) Glucose, POC 141 70 - 199 mg/dL Blood 05/22/2025 12:2 6 AM CDT 05/22/2025 12:26 AM CDT Addy Tapia MD LAB POCT ORDERABLES - DE VICE Final Result Performing Organization Address [facility] Co de Phone Number [facility] [place] [address] * Potassium, whole blood (05/22/2025 12:21 AM CDT) Potassium, bld 3.9 3.3 - 4.9 mmol/L Blood 05/22/2025 12:2 1 AM CDT 05/22/2025 12:44 AM CDT us Zev Cowart MD PhD LAB BLOOD ORDERABLES Fi nal Result Performing Organization Address [facility] Co de Phone Number [facility] Department [place] [address] * (ABNORMAL) eGFR (05/22/2025 12:21 AM CDT) [...] ORDERABLES Final R esult Performing Organization Address City/[facility]/ZIP Co de Phone Number [facility] Department [place] [address] * (ABNORMAL) Hepatitis C (HCV) RNA PCR, quantitative Blood Blood, Venous (05/22/2025 12:21 AM CDT) [facility] HCV RNA result Detected( A) [facility] Comment: The quantifiable range of this assay is 15 IU/mL to 100,000,000 IU/mL (1.18 log IU/mL to 8.00 log IU/mL). Testing was performed by the CARLOS 6800 HCV Test ([employer] Testing performed at [facility] Current Interpretive Data was last revised on 2021 HCV RNA IU/mL 281 IUnits/mL [facility] HCV RNA log IU/mL 2.45 log IUnits/mL [facility] Blood Venous blood specimen / Unknown 05/22/2025 12:21 AM CDT 05/22/2025 1:20 AM CDT us Lindsay Arciniega MD LAB MICROBIOLOGY - GENERAL ORDER LINH Final Result [facility] [place] [address] [facility] * (ABNORMAL) CBC without differential (05/22/2025 12:21 AM CDT) [facility] WBC 20.40(H) 3.80 - 9.90 K/cumm Hgb 8.2(L) 13.0 - 17.5 g/dL [facility] Hct 24.7(L) 38.9 - 50.3 % [facility] Plt 157 150 - 400 K/cumm [facility] MPV 11.4 9.1 - 12.3 fL [facility] RBC 3.02(L) 4.30 - 5.80 M/cumm [facility] MCV 81.8 81.3 - 96.4 fL [facility] MCH 27.2 27.1 - 33.3 pg [facility] MCHC 33.2 32.3 - 35.7 g/dL [facility] RDW CV 15.1(H) 11.1 - 14.9 % [facility] RDW SD 45.4 35.7 - 48.1 fL [facility] NRBC abs 0.00 0.00 - 0.01 K/cumm [facility] Blood 05/22/2025 12:2 1 AM CDT 05/22/2025 1:07 AM CDT Zev Cowart MD PhD LAB BLOOD ORDERABLES Fi nal Result Performing Organization Address City/[facility] Co de Phone Number [facility] [place] [address] * (ABNORMAL) Phosphorus (05/22/2025 12:21 AM CDT) Phosphorus, pl 5.1(H) 2.3 - 4.5 mg/dL Blood 05/22/2025 12:2 1 AM CDT 05/22/2025 1:07 AM CDT Zev Cowart MD PhD LAB BLOOD ORDERABLES Fi nal Result Performing Organization Address City/[facility] Co de Phone Number [facility] [place] [address] * Magnesium (05/22/2025 12:21 AM CDT) Magnesium 2.5 1.4 - 2.5 mg/dL Blood 05/22/2025 12:2 1 AM CDT 05/22/2025 1:07 AM CDT Zev Cowart MD PhD LAB BLOOD ORDERABLES Fi nal Result Performing Organization Address City/[facility] [place] [address] * (ABNORMAL) Hepatic function panel (05/22/2025 12:21 AM CDT) Bilirubin, total 1.4(H) 0.1 - 1.2 mg/dL Bilirubin, direct 0.8(H) 0.1 - 0.3 mg/dL [facility] Protein, pl 5.8(L) 6.5 - 8.5 g/dL [facility] Albumin 3.9 3.5 - 5.0 g/dL [facility] Alk phos 137(H) 40 - 130 Units/L [facility] ALT 24 7 - 55 Units/L [facility] AST 91(H) 10 - 50 Units/L [facility] Blood 05/22/2025 12:2 1 AM CDT 05/22/2025 1:07 AM CDT us Bar Gamble MD LAB BLOOD ORDERABLES Final R esult [facility] [place] [address] * (ABNORMAL) Basic metabolic panel (05/22/2025 12:21 AM CDT) Sodium 138 135 - 145 mmol/L Potassium, pl 4.0 3.3 - 4.9 mmol/L [facility] Chloride 100 97 - 110 mmol/L [facility] CO2 29 22 - 32 mmol/L [facility] Anion gap 9 2 - 15 mmol/L [facility] BUN 38(H) 6 - 25 mg/dL [facility] Creatinine 1.65(H) 0.80 - 1.30 mg/dL [facility] Glucose 138 70 - 199 mg/dL [facility] Comment: Interpretive Data Fasting glucose >/= 126 [...] 2022. Calcium 9.7 8.5 - 10.3 mg/dL [facility] Blood 05/22/2025 12:2 1 AM CDT 05/22/2025 1:07 AM CDT Result [facility] Bar Gamble MD LAB BLOOD ORDERABLES Final R esult Performing Organization Address [facility] Co de Phone Number [facility] [place] [address] * POCT glucose (05/21/2025 11:11 PM CDT) Glucose, POC 185 70 - 199 mg/dL Blood 05/21/2025 11:1 1 PM CDT 05/21/2025 11:11 PM CDT Addy Tapia MD LAB POCT ORDERABLES - DE VICE Final Result Performing Organization Address [facility] de Phone Number [facility] [place] [address] * (ABNORMAL) Hemoglobin total, pulmonary artery (05/21/2025 11:10 PM CDT) Hemoglobin total, PA 8.0(L) 13.0 - 17.5 g/dL Blood 05/21/2025 11:1 0 PM CDT 05/21/2025 11:28 PM CDT Result [facility] Bar Gamble MD LAB BLOOD ORDERABLES Final R esult Performing Organization Address [facility] Co de Phone Number [facility] [place] [address] * (ABNORMAL) POCT glucose (05/21/2025 10:12 PM CDT) Glucose, POC 208(H) 70 - 199 mg/dL Blood 05/21/2025 10:1 2 PM CDT 05/21/2025 10:12 PM CDT Addy Tapia MD LAB POCT ORDERABLES - DE VICE Final Result [facility] [place] [address] * XR Chest 1 View - in PM (05/21/2025 10:03 PM CDT) Anatomical Region Laterality Modality Body, Chest N/A Digital Radiogra phy 05/22/2025 11:1 6 AM CDT Impressions 05/22/2025 2:26 PM CDT First exam: Interval extubation. Right internal jugular central venous catheter with tip overlying the superior vena cava. Right internal jugular Packwood-Jayne catheter tip overlies the main pulmonary artery. [...] the superior vena cava. Right internal jugular Packwood-Jayne catheter tip overlies the main pulmonary artery. [...] signed by: Bar Summers M.D. Ness Roberson PROGRAM SUPPORT CLERK IMG XR PROCEDURES Huong l Result * POCT glucose (05/21/2025 8:51 PM CDT) Glucose, POC 197 70 - 199 mg/dL Blood 05/21/2025 8:51 PM CDT 05/21/2025 8:51 PM CDT Result [facility] Addy Tapia MD LAB POCT ORDERABLES - DE VICE Final Result Performing Organization Address [facility] Phone Number [facility] Department [place] [address] * POCT glucose (05/21/2025 8:13 PM CDT) Glucose, POC 168 70 - 199 mg/dL Blood 05/21/2025 8:13 PM CDT 05/21/2025 8:13 PM CDT Result [facility] Addy Tapia MD LAB POCT ORDERABLES - DE VICE Final Result Performing Organization Address [facility] Co id Phone Number [facility] [place] [address] * POCT glucose (05/21/2025 7:10 PM CDT) Glucose, POC 151 70 - 199 mg/dL Blood 05/21/2025 7:10 PM CDT 05/21/2025 7:10 PM CDT Addy Tapia MD LAB POCT ORDERABLES - DE VICE Final Result Performing Organization Address [facility]/ZIP Co de Phone Number [facility] [place] [address] * POCT glucose (05/21/2025 6:42 PM CDT) Glucose, POC 166 70 - 199 mg/dL Blood 05/21/2025 6:42 PM CDT 05/21/2025 6:42 PM CDT us Zev Cowart MD PhD LAB POCT ORDERABLES - D EVICE Final Result Performing Organization Address [facility] Co de Phone Number [facility] [place] [address] * (ABNORMAL) POCT glucose (05/21/2025 6:25 PM CDT) Glucose, POC 204(H) 70 - 199 mg/dL Blood 05/21/2025 6:25 PM CDT 05/21/2025 6:25 PM CDT Zev Cowart MD PhD LAB POCT ORDERABLES - D EVICE Final Result Performing Organization Address [facility] Co de Phone Number [facility] [place] [address] * (ABNORMAL) POCT glucose (05/21/2025 5:58 PM CDT) Glucose, POC 69(L) 70 - 199 mg/dL Blood 05/21/2025 5:58 PM CDT 05/21/2025 5:58 PM CDT Zev Cowart MD PhD LAB POCT ORDERABLES - D EVICE Final Result Performing Organization Address City/[facility]/ZIP Co de Phone Number [facility] [place] [address] * POCT glucose (05/21/2025 5:00 PM CDT) Glucose, POC 107 70 - 199 mg/dL Blood 05/21/2025 5:00 PM CDT 05/21/2025 5:00 PM CDT us Zev Cowart MD PhD LAB POCT ORDERABLES - D RISHI Final Result Performing Organization Address [facility] [place] [address] * Oxyhemoglobin, pulmonary artery (05/21/2025 4:00 PM CDT) Oxyhemoglobin, PA 87.0 % Comment: Interpretive Data No reference range established. Current interpretive data was last revised 2020. Blood 05/21/2025 4:00 PM CDT 05/21/2025 4:11 PM CDT us Bar Gamble MD LAB BLOOD ORDERABLES Final R esult Performing Organization Address [facility] [place] [address] * (ABNORMAL) Hemoglobin total, pulmonary artery (05/21/2025 4:00 PM CDT) Hemoglobin total, PA 8.2(L) 13.0 - 17.5 g/dL Blood 05/21/2025 4:00 PM CDT 05/21/2025 4:11 PM CDT us Bar Gamble MD LAB BLOOD ORDERABLES Final R esult Performing Organization Address [facility] Co de Phone Number [facility] [place] [address] * (ABNORMAL) eGFR (05/21/2025 4:00 PM CDT) [...] ORDERABLES Final R esult Performing Organization Address [facility] Co de Phone Number [facility] [place] [address] * Lactate, whole blood (05/21/2025 4:00 PM CDT) Pathologist [facility] Lactate, bld 1.4 0.7 - 2.0 mmol/L Blood 05/21/2025 4:00 PM CDT 05/21/2025 4:11 PM CDT us Bar Gamble MD LAB BLOOD ORDERABLES Final R esult Performing Organization Address [facility] Co de Phone Number [facility] Department [place] [address] * (ABNORMAL) Basic metabolic panel (05/21/2025 4:00 PM CDT) Sodium 138 135 - 145 mmol/L Potassium, pl 3.9 3.3 - 4.9 mmol/L [facility] Chloride 102 97 - 110 mmol/L [facility] CO2 28 22 - 32 mmol/L [facility] Anion gap 8 2 - 15 mmol/L [facility] BUN 36(H) 6 - 25 mg/dL [facility] Creatinine 1.42(H) 0.80 - 1.30 mg/dL [facility] Glucose 128 70 - 199 mg/dL [facility] Comment: Interpretive Data Fasting glucose >/= 126 [...] 2022. Calcium 9.8 8.5 - 10.3 mg/dL [facility] Blood 05/21/2025 4:00 PM CDT 05/21/2025 4:22 PM CDT us Bar Gamble MD LAB BLOOD ORDERABLES Final R esult Performing Organization Address City/[facility]/ZIP Co de Phone Number [facility] [place] [address] * POCT glucose (05/21/2025 3:54 PM CDT) Glucose, POC 143 70 - 199 mg/dL Blood 05/21/2025 3:54 PM CDT 05/21/2025 3:54 PM CDT us Zev Cowart MD PhD LAB POCT ORDERABLES - D RISHI Final Result [facility] [place] [address] * POCT glucose (05/21/2025 3:04 PM CDT) Glucose, POC 152 70 - 199 mg/dL Blood 05/21/2025 3:04 PM CDT 05/21/2025 3:04 PM CDT Zev Cowart MD PhD LAB POCT ORDERABLES - D EVICE Final Result Performing Organization Address [facility] [place] [address] * (ABNORMAL) POCT glucose (05/21/2025 1:50 PM CDT) Glucose, POC 208(H) 70 - 199 mg/dL Blood 05/21/2025 1:50 PM CDT 05/21/2025 1:50 PM CDT Zev Cowart MD PhD LAB POCT ORDERABLES - D EVICE Final Result Performing Organization Address [facility] Co de Phone Number [facility] [place] [address] * (ABNORMAL) POCT glucose (05/21/2025 1:03 PM CDT) Glucose, POC 232(H) 70 - 199 mg/dL Blood 05/21/2025 1:03 PM CDT 05/21/2025 1:03 PM CDT Zev Cowart MD PhD LAB POCT ORDERABLES - D EVICE Final Result Performing Organization Address [facility] Co de Phone Number [facility] [place] [address] * (ABNORMAL) POCT glucose (05/21/2025 11:52 AM CDT) Glucose, POC 240(H) 70 - 199 mg/dL Blood 05/21/2025 11:5 2 AM CDT 05/21/2025 11:52 AM CDT us Zev Cowart MD PhD LAB POCT ORDERABLES - D EVICE Final Result [facility] [place] [address] * (ABNORMAL) Differential, auto (05/21/2025 11:28 AM CDT) Pathologist [facility] Neutrophil abs 13.62(H) 1.50 - 6.50 K/cumm Imm gran abs 0.09 0.00 - 0.10 K/cumm [facility] Lymphocyte abs 0.21(L) 0.80 - 3.30 K/cumm [facility] Monocyte abs 0.29 0.20 - 0.80 K/cumm [facility] Eosinophil abs 0.00 0.00 - 0.50 K/cumm [facility] Basophil abs 0.01 0.00 - 0.10 K/cumm [facility] Neutrophil pct 95.8 % [facility] Comment: Interpretive Data Percent cell count reference ranges are not reported, since discordance with absolute values may lead to misinterpretation of CBC data. Current Interpretive Data was last revised on 2018. Imm gran pct 0.6 % [facility] Comment: Interpretive Data Percent cell count reference ranges are not reported, since discordance with absolute values may lead to misinterpretation of CBC data. Current Interpretive Data was last revised on 2018. Lymphocyte pct 1.5 % [facility] Comment: Interpretive Data Percent cell count reference ranges are not reported, since discordance with absolute values may lead to misinterpretation of CBC data. Current Interpretive Data was last revised on 2018. Monocyte pct 2.0 % [facility] [facility] Comment: Interpretive Data Percent cell count reference ranges are not reported, since discordance with absolute values may lead to misinterpretation of CBC data. Current Interpretive Data was last revised on 2018. Eosinophil pct 0.0 % [facility] Comment: Interpretive Data Percent cell count reference ranges are not reported, since discordance with absolute values may lead to misinterpretation of CBC data. Current Interpretive Data was last revised on 2018. Basophil pct 0.1 % [facility] Comment: Interpretive Data Percent cell count reference ranges are not reported, since discordance with absolute values may lead to misinterpretation of CBC data. Current Interpretive Data was last revised on 2018. Blood 05/21/2025 11:2 8 AM CDT 05/21/2025 11:52 AM CDT us Ness Roberson PROGRAM SUPPORT CLERK LAB BLOOD ORDERABLES F inal Result [facility] [place] [address] * (ABNORMAL) CBC with auto differential (05/21/2025 11:28 AM CDT) WBC 14.22(H) 3.80 - 9.90 K/cumm Hgb 8.1(L) 13.0 - 17.5 g/dL [facility] Hct 24.6(L) 38.9 - 50.3 % [facility] Plt 171 150 - 400 K/cumm [facility] MPV 11.6 9.1 - 12.3 fL [facility] RBC 3.01(L) 4.30 - 5.80 M/cumm [facility] MCV 81.7 81.3 - 96.4 fL [facility] MCH 26.9(L) 27.1 - 33.3 pg [facility] MCHC 32.9 32.3 - 35.7 g/dL [facility] RDW CV 15.1(H) 11.1 - 14.9 % [facility] RDW SD 45.5 35.7 - 48.1 fL [facility] NRBC abs 0.00 0.00 - 0.01 K/cumm [facility] Blood 05/21/2025 11:2 8 AM CDT 05/21/2025 11:52 AM CDT us Ness Roberson NP LAB BLOOD ORDERABLES F inal Result [facility] [place] [address] * Critical Care (05/21/2025 10:59 AM CDT) [...] plan with the ICU team and other medical/oncology consultant staff, making frequent assessments and decisions [...] 5 AM CDT 05/21/2025 10:51 AM CDT us Bar Gamble MD LAB BLOOD ORDERABLES Final R esult Performing Organization Address City/[facility] Co de Phone Number [facility] Department [place] [address] * (ABNORMAL) Hemoglobin total, pulmonary artery (05/21/2025 10:45 AM CDT) Pathologist [facility] Hemoglobin total, PA 8.1(L) 13.0 - 17.5 g/dL Blood 05/21/2025 10:4 5 AM CDT 05/21/2025 10:51 AM CDT us Bar Gamble MD LAB BLOOD ORDERABLES Final R esult Performing Organization Address [facility] de Phone Number [facility] Department [place] [address] * (ABNORMAL) POCT glucose (05/21/2025 10:43 AM CDT) Glucose, POC 254(H) 70 - 199 mg/dL Blood 05/21/2025 10:4 3 AM CDT 05/21/2025 10:43 AM CDT us Zev Cowart MD PhD LAB POCT ORDERABLES - Cece BLACKWELL Final Result Performing Organization Address [facility] Co de Phone Number [facility] [place] [address] * Lactate (05/21/2025 10:41 AM CDT) Lactate 1.7 0.7 - 2.0 mmol/L Blood 05/21/2025 10:4 1 AM CDT 05/21/2025 10:58 AM CDT Zev Cowart MD PhD LAB BLOOD ORDERABLES Fi nal Result Performing Organization Address City/[facility] Co de Phone Number [facility] Department [place] [address] * Potassium, whole blood (05/21/2025 10:41 AM CDT) Potassium, bld 4.1 3.3 - 4.9 mmol/L Blood 05/21/2025 10:4 1 AM CDT 05/21/2025 10:51 AM CDT Zev Cowart MD PhD LAB BLOOD ORDERABLES Fi nal Result Performing Organization Address [facility] de Phone Number [facility] Department [place] [address] * (ABNORMAL) eGFR (05/21/2025 10:41 AM CDT) Pathologist [facility] eGFR 59(L) >=60 mL/min/1. 73 m2 Comment: [...] ORDERABLES Fi nal Result Performing Organization Address [facility] Co de Phone Number [facility] [place] [address] * (ABNORMAL) Protime-INR (05/21/2025 10:41 AM CDT) PT 13.8(H) 9.7 - 13.0 sec INR 1.27(H) 0.90 - 1.20 [facility] Comment: Interpretive data Oral anticoagulant therapeutic ranges: [...] ORDERABLES Fi nal Result Performing Organization Address [facility] Co de Phone Number [facility] [place] [address] * (ABNORMAL) Blood gas, arterial (05/21/2025 10:41 AM CDT) pH, Art 7.44 7.35 - 7.45 PCO2, Arterial 37 35 - 45 mmHg [facility] PO2, Arterial 165(H) 83 - 108 mmHg [facility] HCO3 Art (Calculated) 26 20 - 30 mmol/L [facility] BE, art 1 mmol/L [facility] Comment: Interpretive Data No Reference Range Established Current Interpretive Data was last revised on 2017 O2 Sat Art (Measured) 100(H) 90 - 95 % [facility] Blood 05/21/2025 10:4 1 AM CDT 05/21/2025 10:51 AM CDT Zev Cowart MD PhD LAB BLOOD ORDERABLES Fi nal Result Performing Organization Address City/[facility]/ZIP Co de Phone Number [facility] Department [place] [address] * (ABNORMAL) Basic metabolic panel (05/21/2025 10:41 AM CDT) Pathologist [facility] Sodium 136 135 - 145 mmol/L Potassium, pl 4.0 3.3 - 4.9 mmol/L [facility] Chloride 99 97 - 110 mmol/L [facility] CO2 27 22 - 32 mmol/L [facility] Anion gap 10 2 - 15 mmol/L [facility] BUN 36(H) 6 - 25 mg/dL [facility] Creatinine 1.36(H) 0.80 - 1.30 mg/dL [facility] Glucose 248(H) 70 - 199 mg/dL [facility] Comment: Interpretive Data Fasting glucose >/= 126 [...] 2022. Calcium 9.9 8.5 - 10.3 mg/dL [facility] Blood 05/21/2025 10:4 1 AM CDT 05/21/2025 10:58 AM CDT Zev Cowart MD PhD LAB BLOOD ORDERABLES Fi nal Result Performing Organization Address [facility]/ZIP Co de Phone Number [facility] Department [place] [address] * (ABNORMAL) POC Blood Gas and Chemistries, Arterial - (05/21/2025 9:29 AM CDT) pH, Art POC 7.49(H) 7.35 - 7.45 pCO2, Art POC 34(L) 35 - 45 mmHg [facility] pO2, Art POC 148(H) 83 - 108 mmHg [facility] Na, POC 139 135 - 145 mmol/L [facility] K POC 4.4 3.3 - 4.9 mmol/L [facility] Comment: Interpretive Data Not all point of care methods assess for hemolysis. Confirm with instrument and retest K+ if not consistent with clinical signs and symptoms. Current Interpretive Data was last revised on 2024. Cl, POC 105 97 - 110 mmol/L [facility] Ionized Ca, POC 5.11(H) 4.50 - 5.10 mg/dL [facility] Glucose, POC 237(H) 70 - 199 mg/dL [facility] Lactate POC 1.1 0.7 - 2.0 mmol/L [facility] SO2 (sameer) arterial 99(H) 90 - 95 % [facility] Base excess, POC 2.6 mmol/L [facility] HCO3, Art POC 26 20 - 30 mmol/L [facility] Hct, POC 26.0(L) 41.4 - 51.6 % [facility] Total Hb, POC 8.7(L) 13.8 - 17.2 g/dL [facility] Blood 05/21/2025 9:29 AM CDT 05/21/2025 9:29 AM CDT us Zev Cowart MD PhD LAB POCT ORDERABLES - D EVICE Final Result [facility] [place] [address] * XR Chest 1 View (05/21/2025 8:27 AM CDT) Anatomical Region Laterality Modality Body, Chest N/A Digital Radiogra phy 05/21/2025 11:3 7 AM CDT Impressions 05/21/2025 11:50 AM CDT Comparison with 05/20/2025. An endotracheal tube is approximately 4 centimeters above the demetrius. Right internal jugular central venous catheter with tip overlying the superior vena cava. Right internal jugular Packwood-Jayne catheter tip overlies the main pulmonary artery. [...] the superior vena cava. Right internal jugular Packwood-Jayne catheter tip overlies the main pulmonary artery. [...] mediastinal drains are in place. Partially imaged Packwood-Jayne catheter. Epicardial pacer wires are in place. [...] mediastinal drains are in place. Partially imaged Packwood-Jayne catheter. Epicardial pacer wires are in place. Right upper quadrant cholecystectomy clips. Imaged bowel gas pattern is within normal limits. Small bilateral pleural effusions. Dictated by: Carlos Real M.D. The radiology attending physician has personally reviewed this study, and had reviewed and/or edited this written report and agrees with it. Electronically signed by: Nighat Lubin M.D. us Zev Cowart MD PhD IMG XR PROCEDURES Final Result * POCT glucose (05/21/2025 7:45 AM CDT) Glucose, POC 198 70 - 199 mg/dL Blood 05/21/2025 7:45 AM CDT 05/21/2025 7:45 AM CDT us Zev Cowart MD PhD LAB POCT ORDERABLES - D EVICE Final Result [facility] [place] [address] * HLA Donor Specific Antibody Report (05/21/2025 [...] ORDERABLES Fi nal Result Performing Organization Address [facility]/ZIP Co de Phone Number [facility] [place] [address] * Oxyhemoglobin, pulmonary artery (05/21/2025 7:38 AM CDT) Oxyhemoglobin, PA 86.0 % Comment: Interpretive Data No reference range established. Current interpretive data was last revised 2020. Blood 05/21/2025 7:38 AM CDT 05/21/2025 7:44 AM CDT us Bar Gamble MD LAB BLOOD ORDERABLES Final R esult [facility] [place] [address] * (ABNORMAL) Hemoglobin total, pulmonary artery (05/21/2025 7:38 AM CDT) Hemoglobin total, PA 8.7(L) 13.0 - 17.5 g/dL Blood 05/21/2025 7:38 AM CDT 05/21/2025 7:44 AM CDT Bar Gamble MD LAB BLOOD ORDERABLES Final R esult Performing Organization Address [facility] [place] [address] * aPTT (05/21/2025 7:38 AM CDT) aPTT [...] ORDERABLES Fi nal Result Performing Organization Address [facility] [place] [address] * (ABNORMAL) Protime-INR (05/21/2025 7:38 AM CDT) PT 14.1(H) 9.7 - 13.0 sec INR 1.30(H) 0.90 - 1.20 [facility] Comment: Interpretive data Oral anticoagulant therapeutic ranges: Venous thromboembolism prophylaxis or treatment: 2.0-3.0 CARDIOLOGY Standard range: 2.0-3.0 High-intensity range: 2.5-3.5 Refer to indication-specific guidelines for appropriate target ranges for prosthetic heart valve replacement. Current interpretive data was last revised on 2019. Blood 05/21/2025 7:38 AM CDT 05/21/2025 7:55 AM CDT Zev Cowart MD PhD LAB BLOOD ORDERABLES Fi nal Result Performing Organization Address [facility] de Phone Number [facility] [place] [address] * (ABNORMAL) Type and screen (05/21/2025 7:38 AM CDT) Poppy, indirect Positive(A) ABO Rh O Positive [facility] Blood 05/21/2025 7:38 AM CDT 05/21/2025 7:51 AM CDT Narrative [facility] - 05/21/2025 8:50 AM CDT Has the patient had Daratumumab or Isatuximab in the past 6 months?->Unknown us Zev Cowart MD PhD LAB BLOOD BANK TEST ORD ERABLES Final Result [facility] [place] [address] * (ABNORMAL) eGFR (05/21/2025 6:44 AM CDT) Pathologist [facility] eGFR 59(L) >=60 mL/min/1. 73 m2 Comment: [...] ORDERABLES Final R esult Performing Organization Address [facility] Co de Phone Number [facility] [place] [employer] [place] [address] * (ABNORMAL) CBC without differential (05/21/2025 6:44 AM CDT) Pathologist [facility] WBC 15.78(H) 3.80 - 9.90 K/cumm Hgb 8.4(L) 13.0 - 17.5 g/dL [facility] Hct 25.5(L) 38.9 - 50.3 % [facility] Plt 165 150 - 400 K/cumm [facility] MPV 11.4 9.1 - 12.3 fL [facility] RBC 3.09(L) 4.30 - 5.80 M/cumm [facility] MCV 82.5 81.3 - 96.4 fL [facility] MCH 27.2 27.1 - 33.3 pg [facility] MCHC 32.9 32.3 - 35.7 g/dL [facility] RDW CV 15.1(H) 11.1 - 14.9 % [facility] RDW SD 45.6 35.7 - 48.1 fL [facility] NRBC abs 0.00 0.00 - 0.01 K/cumm [facility] Blood 05/21/2025 6:44 AM CDT 05/21/2025 6:56 AM CDT us Bar Gamble MD LAB BLOOD ORDERABLES Final R esult Performing Organization Address City/[facility]/ZIP Co de Phone Number [facility] [place] [address] * Triglycerides (05/21/2025 6:44 AM CDT) Pathologist [facility] Triglycerides 60 <=149 mg/dL Comment: Interpretive Data [...] ORDERABLES Fi nal Result Performing Organization Address [facility] de Phone Number [facility] [place] [address] * Phosphorus (05/21/2025 6:44 AM CDT) Phosphorus, pl 2.8 2.3 - 4.5 mg/dL Blood 05/21/2025 6:44 AM CDT 05/21/2025 6:57 AM CDT Zev Cowart MD PhD LAB BLOOD ORDERABLES Fi nal Result Performing Organization Address [facility] de Phone Number [facility] [place] [address] * (ABNORMAL) Magnesium (05/21/2025 6:44 AM CDT) Magnesium 2.6(H) 1.4 - 2.5 mg/dL Blood 05/21/2025 6:44 AM CDT 05/21/2025 6:57 AM CDT Bar Gamble MD LAB BLOOD ORDERABLES Final R esult Performing Organization Address [facility] de Phone Number [facility] [place] [address] * (ABNORMAL) Hepatic function panel (05/21/2025 6:44 AM CDT) [facility] Bilirubin, total 3.0(H) 0.1 - 1.2 mg/dL Comment:Reviewed Bilirubin, direct 1.4(H) 0.1 - 0.3 mg/dL [facility] Comment:Reviewed Protein, pl 6.0(L) 6.5 - 8.5 g/dL [facility] Albumin 4.1 3.5 - 5.0 g/dL [facility] Alk phos 167(H) 40 - 130 Units/L [facility] ALT 25 7 - 55 Units/L [facility] AST 97(H) 10 - 50 Units/L [facility] Comment:Reviewed Blood 05/21/2025 6:44 AM CDT 05/21/2025 6:57 AM CDT Bar Gamble MD LAB BLOOD ORDERABLES Final R esult [facility] [place] [address] * (ABNORMAL) Basic metabolic panel (05/21/2025 6:44 AM CDT) [facility] Sodium 141 135 - 145 mmol/L Potassium, pl 4.1 3.3 - 4.9 mmol/L [facility] Chloride 103 97 - 110 mmol/L [facility] CO2 26 22 - 32 mmol/L [facility] Anion gap 12 2 - 15 mmol/L [facility] BUN 36(H) 6 - 25 mg/dL [facility] Creatinine 1.36(H) 0.80 - 1.30 mg/dL [facility] Glucose 181 70 - 199 mg/dL [facility] Comment: Interpretive Data Fasting glucose >/= 126 [...] 2022. Calcium 10.1 8.5 - 10.3 mg/dL [facility] Blood 05/21/2025 6:44 AM CDT 05/21/2025 6:57 AM CDT us Bar Gamble MD LAB BLOOD ORDERABLES Final R esult [facility] [place] [address] * (ABNORMAL) POC Blood Gas and Chemistries, Arterial - (05/21/2025 6:37 AM CDT) pH, Art POC 7.43 7.35 - 7.45 pCO2, Art POC 40 35 - 45 mmHg [facility] pO2, Art POC 208(H) 83 - 108 mmHg [facility] Na, POC 138 135 - 145 mmol/L [facility] K POC 4.0 3.3 - 4.9 mmol/L [facility] Comment: Interpretive Data Not all point of care methods assess for hemolysis. Confirm with instrument and retest K+ if not consistent with clinical signs and symptoms. Current Interpretive Data was last revised on 2024. Cl, POC 106 97 - 110 mmol/L [facility] Ionized Ca, POC 5.21(H) 4.50 - 5.10 mg/dL [facility] Glucose, POC 174 70 - 199 mg/dL [facility] Lactate POC 1.4 0.7 - 2.0 mmol/L [facility] SO2 (sameer) arterial 99(H) 90 - 95 % [facility] Base excess, POC 2.0 mmol/L [facility] HCO3, Art POC 26 20 - 30 mmol/L [facility] Hct, POC 26.0(L) 41.4 - 51.6 % [facility] Total Hb, POC 8.8(L) 13.8 - 17.2 g/dL [facility] Blood 05/21/2025 6:37 AM CDT 05/21/2025 6:37 AM CDT us Zev Cowart MD PhD LAB POCT ORDERABLES - D EVICE Final Result [facility] [place] [address] * (ABNORMAL) POC Blood Gas and Chemistries, Arterial - (05/21/2025 5:18 AM CDT) pH, Art POC 7.44 7.35 - 7.45 pCO2, Art POC 39 35 - 45 mmHg [facility] pO2, Art POC 201(H) 83 - 108 mmHg [facility] Na, POC 140 135 - 145 mmol/L [facility] K POC 4.0 3.3 - 4.9 mmol/L [facility] Comment: Interpretive Data Not all point of care methods assess for hemolysis. Confirm with instrument and retest K+ if not consistent with clinical signs and symptoms. Current Interpretive Data was last revised on 2024. Cl, POC 107 97 - 110 mmol/L [facility] Ionized Ca, POC 5.54(H) 4.50 - 5.10 mg/dL [facility] Glucose, POC 161 70 - 199 mg/dL [facility] Lactate POC 1.9 0.7 - 2.0 mmol/L [facility] SO2 (sameer) arterial 99(H) 90 - 95 % [facility] excess, POC 2.2 mmol/L [facility] HCO3, Art POC 26 20 - 30 mmol/L [facility] Hct, POC 24.0(L) 41.4 - 51.6 % [facility] Total Hb, POC 7.9(L) 13.8 - 17.2 g/dL [facility] Blood 05/21/2025 5:18 AM CDT 05/21/2025 5:18 AM CDT us Zev Cowart MD PhD LAB POCT ORDERABLES - D EVICE Final Result Performing Organization Address [facility] de Phone Number [facility] [employer] [place] [address] * (ABNORMAL) POCT prothrombin time (05/21/2025 4:17 AM CDT) PT, POC 25.2(H) 11.7 - 16.6 sec INR, POC 1.9(H) 0.9 - 1.2 [facility] Blood 05/21/2025 4:17 AM CDT 05/21/2025 4:17 AM CDT Zev Cowart MD PhD LAB POCT ORDERABLES - D EVICE Final Result Performing Organization Address [facility] de Phone Number [facility] [place] [address] * POCT Partial thromboplastin time (PTT) (05/21/2025 4:17 AM CDT) APTT, POC 34.0 32.5 - 46.1 sec Blood 05/21/2025 4:17 AM CDT 05/21/2025 4:17 AM CDT Zev Cowart MD PhD LAB POCT ORDERABLES - D EVICE Final Result Performing Organization Address [facility] de Phone Number [facility] [place] [address] * (ABNORMAL) POC Blood Gas and Chemistries, Arterial - (05/21/2025 4:17 AM CDT) pH, Art POC 7.47(H) 7.35 - 7.45 pCO2, Art POC 37 35 - 45 mmHg [facility] pO2, Art POC 396(H) 83 - 108 mmHg [facility] Na, POC 138 135 - 145 mmol/L [facility] K POC 3.8 3.3 - 4.9 mmol/L [facility] Comment: Interpretive Data Not all point of care methods assess for hemolysis. Confirm with instrument and retest K+ if not consistent with clinical signs and symptoms. Current Interpretive Data was last revised on 2024. Cl, POC 105 97 - 110 mmol/L [facility] Ionized Ca, POC 5.41(H) 4.50 - 5.10 mg/dL [facility] Glucose, POC 155 70 - 199 mg/dL [facility] Lactate POC 3.6(H) 0.7 - 2.0 mmol/L [facility] SO2 (sameer) arterial 99(H) 90 - 95 % [facility] Base excess, POC 3.1 mmol/L [facility] HCO3, Art POC 27 20 - 30 mmol/L [facility] Hct, POC 27.0(L) 41.4 - 51.6 % [facility] Total Hb, POC 9.1(L) 13.8 - 17.2 g/dL [facility] Blood 05/21/2025 4:17 AM CDT 05/21/2025 4:17 AM CDT us Zev Cowart MD PhD LAB POCT ORDERABLES - D EVICE Final Result Performing Organization Address City/[facility] Co de Phone Number [facility] [place] [address] * (ABNORMAL) POCT hemoglobin, hematocrit and platelet count (05/21/2025 4:15 AM CDT) Hgb, POC 8.4(L) 13.0 - 17.5 g/dL Hematocrit POC 26.6(L) 38.9 - 50.3 % [facility] Platelet POC 169 150 - 400 K/cumm [facility] Blood 05/21/2025 4:15 AM CDT 05/21/2025 4:15 AM CDT us Zev Cowart MD PhD LAB POCT ORDERABLES - D EVICE Final Result Performing Organization Address City/[facility] Co de Phone Number [facility] [place] [address] * POCT heparin/ACT CPB (05/21/2025 3:38 AM CDT) Pathologist [facility] Heparin POC 0.0 units/mL ACT, CPB 142 112 - 174 sec [facility] Blood 05/21/2025 3:38 AM CDT 05/21/2025 3:38 AM CDT us Zev Cowart MD PhD LAB POCT ORDERABLES - D EVICE Final Result [facility] [place] [address] * (ABNORMAL) POC Blood Gas and Chemistries, Arterial - (05/21/2025 3:36 AM CDT) [facility] pH, Art POC 7.51(H) 7.35 - 7.45 pCO2, Art POC 30(L) 35 - 45 mmHg [facility] pO2, Art POC 443(H) 83 - 108 mmHg [facility] Na, POC 137 135 - 145 mmol/L [facility] K POC 3.6 3.3 - 4.9 mmol/L [facility] Comment: Interpretive Data Not all point of care methods assess for hemolysis. Confirm with instrument and retest K+ if not consistent with clinical signs and symptoms. Current Interpretive Data was last revised on 2024. Cl, POC 104 97 - 110 mmol/L [facility] Ionized Ca, POC 5.29(H) 4.50 - 5.10 mg/dL [facility] Glucose, POC 157 70 - 199 mg/dL [facility] Lactate POC 4.2(C) 0.7 - 2.0 mmol/L [facility] SO2 (sameer) arterial 100(H) 90 - 95 % [facility] Base excess, POC 1.2 mmol/L [facility] HCO3, Art POC 24 20 - 30 mmol/L [facility] Hct, POC 29.0(L) 41.4 - 51.6 % [facility] Total Hb, POC 9.5(L) 13.8 - 17.2 g/dL [facility] Blood 05/21/2025 3:36 AM CDT 05/21/2025 3:36 AM CDT Zev Cowart MD PhD LAB POCT ORDERABLES - D EVICE Final Result Performing Organization Address City/[facility] Co de Phone Number [facility] [place] [address] * (ABNORMAL) POCT heparin/ACT CPB (05/21/2025 2:49 AM CDT) Pathologist [facility] Heparin POC <2.8 units/mL ACT, CPB 484(H) 112 - 174 sec [facility] Blood 05/21/2025 2:49 AM CDT 05/21/2025 2:49 AM CDT Zev Cowart MD PhD LAB POCT ORDERABLES - D EVICE Final Result Performing Organization Address [facility] Co de Phone Number [facility] [employer] [place] [address] * (ABNORMAL) POC Blood Gas and Chemistries, Arterial - (05/21/2025 2:48 AM CDT) [facility] pH, Art POC 7.38 7.35 - 7.45 pCO2, Art POC 42 35 - 45 mmHg [facility] pO2, Art POC 185(H) 83 - 108 mmHg [facility] Na, POC 138 135 - 145 mmol/L [facility] K POC 3.9 3.3 - 4.9 mmol/L [facility] Comment: Interpretive Data Not all point of care methods assess for hemolysis. Confirm with instrument and retest K+ if not consistent with clinical signs and symptoms. Current Interpretive Data was last revised on 2024. Cl, POC 100 97 - 110 mmol/L [facility] Ionized Ca, POC 4.74 4.50 - 5.10 mg/dL [facility] Glucose, POC 177 70 - 199 mg/dL [facility] Lactate POC 3.7(H) 0.7 - 2.0 mmol/L [facility] SO2 (sameer) arterial 100(H) 90 - 95 % [facility] Base excess, POC -0.4 mmol/L [facility] HCO3, Art POC 25 20 - 30 mmol/L [facility] Hct, POC 30.0(L) 41.4 - 51.6 % [facility] Total Hb, POC 9.9(L) 13.8 - 17.2 g/dL [facility] Blood 05/21/2025 2:48 AM CDT 05/21/2025 2:48 AM CDT us Zev Cowart MD PhD LAB POCT ORDERABLES - D RISHI Final Result [facility] [place] [address] * (ABNORMAL) POC Blood Gas and Chemistries, Arterial - (05/21/2025 2:30 AM CDT) pH, Art POC 7.39 7.35 - 7.45 pCO2, Art POC 41 35 - 45 mmHg [facility] pO2, Art POC 188(H) 83 - 108 mmHg [facility] Na, POC 137 135 - 145 mmol/L [facility] K POC 3.9 3.3 - 4.9 mmol/L [facility] Comment: Interpretive Data Not all point of care methods assess for hemolysis. Confirm with instrument and retest K+ if not consistent with clinical signs and symptoms. Current Interpretive Data was last revised on 2024. Cl, POC 101 97 - 110 mmol/L [facility] Ionized Ca, POC 4.70 4.50 - 5.10 mg/dL [facility] Glucose, POC 176 70 - 199 mg/dL [facility] Lactate POC 3.5(H) 0.7 - 2.0 mmol/L [facility] SO2 (sameer) arterial 100(H) 90 - 95 % [facility] Base excess, POC -0.2 mmol/L [facility] HCO3, Art POC 25 20 - 30 mmol/L [facility] Hct, POC 29.0(L) 41.4 - 51.6 % [facility] Total Hb, POC 9.5(L) 13.8 - 17.2 g/dL [facility] Blood 05/21/2025 2:30 AM CDT 05/21/2025 2:30 AM CDT Zev Cowart MD PhD LAB POCT ORDERABLES - D EVICE Final Result Performing Organization Address [facility] Co de Phone Number [facility] Department [place] [address] * (ABNORMAL) POCT heparin/ACT CPB (05/21/2025 2:23 AM CDT) Pathologist [facility] Heparin POC 3.4 units/mL ACT, CPB 519(H) 112 - 174 sec [facility] Blood 05/21/2025 2:23 AM CDT 05/21/2025 2:23 AM CDT us Zev Cowart MD PhD LAB POCT ORDERABLES - D EVICE Final Result Performing Organization Address [facility] de Phone Number [facility] Department [place] [address] * (ABNORMAL) POC Blood Gas and Chemistries, Arterial - (05/21/2025 2:16 AM CDT) pH, Art POC 7.40 7.35 - 7.45 pCO2, Art POC 40 35 - 45 mmHg [facility] pO2, Art POC 187(H) 83 - 108 mmHg [facility] Na, POC 138 135 - 145 mmol/L [facility] K POC 4.0 3.3 - 4.9 mmol/L [facility] Comment: Interpretive Data Not all point of care methods assess for hemolysis. Confirm with instrument and retest K+ if not consistent with clinical signs and symptoms. Current Interpretive Data was last revised on 2024. Cl, POC 100 97 - 110 mmol/L [facility] Ionized Ca, POC 4.71 4.50 - 5.10 mg/dL [facility] Glucose, POC 182 70 - 199 mg/dL [facility] Lactate POC 3.7(H) 0.7 - 2.0 mmol/L [facility] SO2 (sameer) arterial 99(H) 90 - 95 % [facility] Base excess, POC 0.0 mmol/L [facility] HCO3, Art POC 25 20 - 30 mmol/L [facility] Hct, POC 28.0(L) 41.4 - 51.6 % [facility] Total Hb, POC 9.2(L) 13.8 - 17.2 g/dL [facility] Blood 05/21/2025 2:16 AM CDT 05/21/2025 2:16 AM CDT Zev Cowart MD PhD LAB POCT ORDERABLES - D EVICE Final Result Performing Organization Address City/[facility]/ZIP Co de Phone Number [facility] Department [place] [address] * (ABNORMAL) POCT heparin/ACT CPB (05/21/2025 2:02 AM CDT) Heparin POC 4.1 units/mL ACT, CPB 564(H) 112 - 174 sec [facility] Blood 05/21/2025 2:02 AM CDT 05/21/2025 2:02 AM CDT Zev Cowart MD PhD LAB POCT ORDERABLES - D EVICE Final Result [facility] [place] [address] * Surgical pathology (05/21/2025 1:46 AM CDT) Tissue (Heart, explant) 05/21/2025 1:46 AM CDT Comment:Rest of heart went t o research #[id number] Narrative PATHOLOGY [facility] - 06/02/2025 10:23 AM CDT EPIC results best viewed via link to PDF [facility] of Surgical Path[facility], [place] [address] Note to Patients: This report may contain [...] Gender: M : 1965 (Age: 60) Address: [address] [place], [place] [id number] Hospital #: [id number] Taken:05/21/2025 Received:05/21/2025 Reported: 06/02/2025 Patient Type: [facility] Inpatient Service: Cardiology Location: [address] Physician(s): MD Anuel Sahu D.O. 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 Peyton Webber M.D. 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 He is now presenting with heart failure. Operative procedure: Heart transplant (UNOS:[id number]). Specimen(s) Received: A: Lv wall Gross Description: [...] no focal lesions. Labeled A1. Jar 1. 05/21/2025 13:39 PA(s): Donna Connor, MS, PA ([facility])CM By this signature, I attest that the above diagnosis is based upon my personal examination of the slides(and/or other material). Addenda/Procedures The performance characteristics of some immunohistochemical stains, fluorescence in-situ hybridization tests and immunophenotyping by flow cytometry cited in this report (if any) were determined by the Surgical Pathology and Flow Cytometry Departments at [facility] as part of an ongoing supplier quality engineer program and in compliance with federally mandated [...] Pathology and Flow Cytometry Departments of [facility]. It has not been cleared or approved by the U. S. Food and Drug Administration. IMAGES AND SCANNED DOCUMENTS, IF INCLUDED, ONLY VIEWABLE IN PDF VERSION OF REPORT Addy Tapia MD LAB PATHOLOGY ORDERABLES Final Result PATHOLOGY [facility] [address] Floor [place], [place] [phone] * (ABNORMAL) POCT heparin/ACT CPB (05/21/2025 1:32 AM CDT) Heparin POC <2.8 units/mL ACT, CPB 529(H) 112 - 174 sec [facility] Blood 05/21/2025 1:32 AM CDT 05/21/2025 1:32 AM CDT us Zev Cowart MD PhD LAB POCT ORDERABLES - D KEVINICE Final Result [facility] Department [place] [address] * (ABNORMAL) POC Blood Gas and Chemistries, Arterial - (05/21/2025 1:32 AM CDT) pH, Art POC 7.43 7.35 - 7.45 pCO2, Art POC 38 35 - 45 mmHg [facility] pO2, Art POC 212(H) 83 - 108 mmHg [facility] Na, POC 137 135 - 145 mmol/L [facility] K POC 2.8(L) 3.3 - 4.9 mmol/L [facility] Comment: Interpretive Data Not all point of care methods assess for hemolysis. Confirm with instrument and retest K+ if not consistent with clinical signs and symptoms. Current Interpretive Data was last revised on 2024. Cl, POC 103 97 - 110 mmol/L [facility] Ionized Ca, POC 4.71 4.50 - 5.10 mg/dL [facility] Glucose, POC 226(H) 70 - 199 mg/dL [facility] Lactate POC 2.7(H) 0.7 - 2.0 mmol/L [facility] SO2 (sameer) arterial 100(H) 90 - 95 % [facility] Base excess, POC 0.9 mmol/L [facility] HCO3, Art POC 25 20 - 30 mmol/L [facility] Hct, POC 27.0(L) 41.4 - 51.6 % [facility] Total Hb, POC 8.9(L) 13.8 - 17.2 g/dL [facility] Blood 05/21/2025 1:32 AM CDT 05/21/2025 1:32 AM CDT us Zev Cowart MD PhD LAB POCT ORDERABLES - D EVICE Final Result [facility] [place] [address] * Central Venous Line (05/21/2025 1:22 AM [...] MD PhD ANESTHESIA ORDERABLES Final Result * [place] AN CENTRAL LINE QUADRUPLE LUMEN, [place] AN PROCEDURE PLACEHOLDER (05/21/2025 1:21 AM CDT) [...] POCT heparin/ACT CPB (05/21/2025 1:04 AM CDT) Pathologist [facility] Heparin POC 3.4 units/mL ACT, CPB 559(H) 112 - 174 sec [facility] Blood 05/21/2025 1:04 AM CDT 05/21/2025 1:04 AM CDT us Zev Cowart MD PhD LAB POCT ORDERABLES - D EVICE Final Result [facility] Department [place] [address] * (ABNORMAL) POC Blood Gas and Chemistries, Arterial - (05/21/2025 1:04 AM CDT) pH, Art POC 7.32(L) 7.35 - 7.45 pCO2, Art POC 48(H) 35 - 45 mmHg [facility] pO2, Art POC 188(H) 83 - 108 mmHg [facility] Na, POC 140 135 - 145 mmol/L [facility] K POC 3.1(L) 3.3 - 4.9 mmol/L [facility] Comment: Interpretive Data Not all point of care methods assess for hemolysis. Confirm with instrument and retest K+ if not consistent with clinical signs and symptoms. Current Interpretive Data was last revised on 2024. Cl, POC 101 97 - 110 mmol/L [facility] Ionized Ca, POC 4.88 4.50 - 5.10 mg/dL [facility] Glucose, POC 255(H) 70 - 199 mg/dL [facility] Lactate POC 2.3(H) 0.7 - 2.0 mmol/L [facility] SO2 (sameer) arterial 100(H) 90 - 95 % [facility] Base excess, POC -1.6 mmol/L [facility] HCO3, Art POC 25 20 - 30 mmol/L [facility] Hct, POC 28.0(L) 41.4 - 51.6 % [facility] Total Hb, POC 9.4(L) 13.8 - 17.2 g/dL [facility] Blood 05/21/2025 1:04 AM CDT 05/21/2025 1:04 AM CDT Zev Cowart MD PhD LAB POCT ORDERABLES - D RISHI Final Result [facility] Department [place] [address] * (ABNORMAL) POC Blood Gas and Chemistries, Arterial - (05/21/2025 12:48 AM CDT) pH, Art POC 7.40 7.35 - 7.45 pCO2, Art POC 39 35 - 45 mmHg [facility] pO2, Art POC 254(H) 83 - 108 mmHg [facility] Na, POC 140 135 - 145 mmol/L [facility] K POC 3.9 3.3 - 4.9 mmol/L [facility] Comment: Interpretive Data Not all point of care methods assess for hemolysis. Confirm with instrument and retest K+ if not consistent with clinical signs and symptoms. Current Interpretive Data was last revised on 2024. Cl, POC 101 97 - 110 mmol/L [facility] Ionized Ca, POC 4.68 4.50 - 5.10 mg/dL [facility] Glucose, POC 261(H) 70 - 199 mg/dL [facility] Lactate POC 2.2(H) 0.7 - 2.0 mmol/L [facility] SO2 (sameer) arterial 100(H) 90 - 95 % [facility] Base excess, POC -0.5 mmol/L [facility] HCO3, Art POC 24 20 - 30 mmol/L [facility] Hct, POC 29.0(L) 41.4 - 51.6 % [facility] Total Hb, POC 9.8(L) 13.8 - 17.2 g/dL [facility] Blood 05/21/2025 12:4 8 AM CDT 05/21/2025 12:48 AM CDT us Zev Cowart MD PhD LAB POCT ORDERABLES - D EVICE Final Result Performing Organization Address [facility] Co de Phone Number [facility] Department [place] [address] * (ABNORMAL) POCT heparin/ACT CPB (05/21/2025 12:44 AM CDT) Pathologist [facility] Heparin POC 4.1 units/mL ACT, CPB 529(H) 112 - 174 sec [facility] Blood 05/21/2025 12:4 4 AM CDT 05/21/2025 12:44 AM CDT us Zev Cowart MD PhD LAB POCT ORDERABLES - D EVICE Final Result Performing Organization Address City/[facility] Co de Phone Number [facility] [place] [address] * (ABNORMAL) POC Blood Gas and Chemistries, Arterial - (05/21/2025 12:31 AM CDT) pH, Art POC 7.42 7.35 - 7.45 pCO2, Art POC 39 35 - 45 mmHg [facility] pO2, Art POC 180(H) 83 - 108 mmHg [facility] Na, POC 140 135 - 145 mmol/L [facility] K POC 3.7 3.3 - 4.9 mmol/L [facility] Comment: Interpretive Data Not all point of care methods assess for hemolysis. Confirm with instrument and retest K+ if not consistent with clinical signs and symptoms. Current Interpretive Data was last revised on 2024. Cl, POC 99 97 - 110 mmol/L [facility] Ionized Ca, POC 4.91 4.50 - 5.10 mg/dL [facility] Glucose, POC 264(H) 70 - 199 mg/dL [facility] Lactate POC 1.9 0.7 - 2.0 mmol/L [facility] SO2 (sameer) arterial 100(H) 90 - 95 % [facility] Base excess, POC 0.8 mmol/L [facility] HCO3, Art POC 25 20 - 30 mmol/L [facility] Hct, POC 36.0(L) 41.4 - 51.6 % [facility] Total Hb, POC 11.9(L) 13.8 - 17.2 g/dL [facility] Blood 05/21/2025 12:3 1 AM CDT 05/21/2025 12:31 AM CDT Zev Cowart MD PhD LAB POCT ORDERABLES - D EVICE Final Result [facility] [place] [employer] [address] * (ABNORMAL) POCT heparin/ACT CPB (05/21/2025 12:30 AM CDT) [facility] Heparin POC 4.1 units/mL ACT, CPB 450(H) 112 - 174 sec [facility] Blood 05/21/2025 12:3 0 AM CDT 05/21/2025 12:30 AM CDT Zev oCwart MD PhD LAB POCT ORDERABLES - D EVICE Final Result Performing Organization Address City/[facility]/ZIP Co de Phone Number [facility] [place] [address] * POCT heparin dose response, CPB (05/20/2025 11:48 PM CDT) Baseline ACT POC 146 112 - 174 sec Heparin dose response slope POC 103 60 - 195 [facility] Projected Heparin Concentration POC 1.0 units/mL [facility] Blood 05/20/2025 11:4 8 PM CDT 05/20/2025 11:48 PM CDT us Zev Cowart MD PhD LAB POCT ORDERABLES - D KEVINICE Final Result [facility] [place] [address] * (ABNORMAL) POC Blood Gas and Chemistries, Arterial - (05/20/2025 11:46 PM CDT) pH, Art POC 7.50(H) 7.35 - 7.45 pCO2, Art POC 35 35 - 45 mmHg [facility] pO2, Art POC 292(H) 83 - 108 mmHg [facility] Na, POC 137 135 - 145 mmol/L [facility] K POC 4.0 3.3 - 4.9 mmol/L [facility] Comment: Interpretive Data Not all point of care methods assess for hemolysis. Confirm with instrument and retest K+ if not consistent with clinical signs and symptoms. Current Interpretive Data was last revised on 2024. Cl, POC 103 97 - 110 mmol/L [facility] Ionized Ca, POC 4.81 4.50 - 5.10 mg/dL [facility] Glucose, POC 173 70 - 199 mg/dL [facility] Lactate POC 1.3 0.7 - 2.0 mmol/L [facility] SO2 (sameer) arterial 100(H) 90 - 95 % [facility] Base excess, POC 4.1 mmol/L [facility] HCO3, Art POC 27 20 - 30 mmol/L [facility] Hct, POC 36.0(L) 41.4 - 51.6 % [facility] Total Hb, POC 12.0(L) 13.8 - 17.2 g/dL [facility] Blood 05/20/2025 11:4 6 PM CDT 05/20/2025 11:46 PM CDT us Zev Cowart MD PhD LAB POCT ORDERABLES - D EVICE Final Result [facility] [place] [address] * [place] AN PROCEDURE PLACEHOLDER (05/20/2025 11:24 PM CDT) [...] code: DIANNE placement and diagnostic exam, non-congenital (81425) ICD code(s) for medical necessity: Z94.1 - [...] inferior: hypokinetic 16- Apical septal: hypokinetic 17- Toyah: hypokinetic Valves: Aortic Valve: Annulus: normal Leaflet [...] ANESTHESIA ORDERABLES Edited Result - Final * [place] AN ELECTIVE ENDOTRACHEAL AIRWAY, [place] AN PROCEDURE PLACEHOLDER (05/20/2025 11:19 PM CDT) [...] laryngoscopy Insertion site: oral Video blade type: [employer] Blade size: 3 Cormack-Lehane (direct): grade I [...] (05/20/2025 9:15 PM CDT) BSA 2.04 m2 [facility] PROSOLV_CARDIORE PORT_CONS SCIMAGE Narrative [facility] PROSOLV_CARDIOREPORT_CONS SCIMAGE - 05/20/2025 9:15 PM CDT Procedure Auto Finalized by Rule: BW CV DIANNE DURING CASE OR Please see the Anesthesiologist's Procedure Note for the results. us Gosia Wilkins MD PhD CV ECHO PROCEDURES Fi nal Result [facility] PROSOLV_CARDIOREPORT_CONS SCIMAGE * Prepare plasma: 4 Units (05/20/2025 9:12 PM CDT) Product code [id number] Unit Number [id number] 8-G [facility] Product Blood Type OPOS [facility] Dispense Status RETURNED [facility] Product code [id number] [facility] Unit Number [id number] 3-Q [facility] Product Blood Type OPOS [facility] Dispense Status RETURNED [facility] Product code [id number] [facility] Unit Number [id number] 5-N [facility] Product Blood Type OPOS [facility] Dispense Status RETURNED [facility] Product code [id number] [facility] Unit Number [id number] 1-Y [facility] Product Blood Type OPOS [facility] Dispense Status RETURNED [facility] Blood Venous blood specimen / Unknown 05/20/2025 9:12 PM CDT 05/20/2025 9:15 PM CDT Narrative [facility] - 05/21/2025 6:22 AM CDT Date required:-20250520 FFP # of Units:-4-Units Reasons:-Immediate need for surgical intervention us Gosia Wilkins MD PhD BLOOD BANK PRODUCT OR DERABLES Final Result Performing Organization Address [facility] Co de Phone Number [facility] [place] [address] * Prepare RBC: 10 Units (05/20/2025 9:12 PM CDT) Product code [id number] [facility] Unit Number [id number] 5-C [facility] Product Blood Type OPOS [facility] Dispense Status RETURNED [facility] Product code [id number] Unit Number [id number] 4-A [facility] Product Blood Type OPOS [facility] Dispense Status RETURNED [facility] Blood 05/20/2025 9:12 PM CDT 05/20/2025 9:15 PM CDT Narrative [facility] - 05/21/2025 6:22 AM CDT Are special requirements needed? (All products are leukoreduced and CMV- safe)- >No Date required:-20250520 LRRBC # of [id number] Reasons:-Intra-op transfusion} us Gosia Wilkins MD PhD BLOOD BANK PRODUCT OR DERABLES Final Result Performing Organization Address [facility] de Phone Number [facility] [place] [address] * Oxyhemoglobin, pulmonary artery (05/20/2025 4:24 PM CDT) Oxyhemoglobin, PA 54.9 % Comment: Interpretive Data No reference range established. Current interpretive data was last revised 2020. Blood 05/20/2025 4:24 PM CDT 05/20/2025 4:33 PM CDT us Bar Gamble MD LAB BLOOD ORDERABLES Final R esult [facility] [place] [address] * (ABNORMAL) Hemoglobin total, pulmonary artery (05/20/2025 4:24 PM CDT) Hemoglobin total, PA 18.5(H) 13.0 - 17.5 g/dL Blood 05/20/2025 4:24 PM CDT 05/20/2025 4:33 PM CDT us Bar Gamble MD LAB BLOOD ORDERABLES Final R esult Performing Organization Address City/[facility] Co de Phone Number DUL[facility] MARIA [facility] [place] [address] * (ABNORMAL) eGFR (05/20/2025 4:24 PM CDT) [...] ORDERABLES Final R esult Performing Organization Address [facility] [place] [address] * Lactate, whole blood (05/20/2025 4:24 PM CDT) [facility] Lactate, bld 1.0 0.7 - 2.0 mmol/L Blood 05/20/2025 4:24 PM CDT 05/20/2025 4:33 PM CDT Bar Gamble MD LAB BLOOD ORDERABLES Final R esult Performing Organization Address [facility] Co de Phone Number [facility] [place] [address] * Magnesium (05/20/2025 4:24 PM CDT) [facility] Magnesium 2.5 1.4 - 2.5 mg/dL Blood 05/20/2025 4:24 PM CDT 05/20/2025 4:40 PM CDT Bar Gamble MD LAB BLOOD ORDERABLES Final R esult Performing Organization Address [facility] Co de Phone Number [facility] [place] [address] * (ABNORMAL) Basic metabolic panel (05/20/2025 4:24 PM CDT) [facility] Sodium 140 135 - 145 mmol/L Potassium, pl 3.9 3.3 - 4.9 mmol/L [facility] Chloride 98 97 - 110 mmol/L [facility] CO2 29 22 - 32 mmol/L [facility] Anion gap 13 2 - 15 mmol/L [facility] BUN 42(H) 6 - 25 mg/dL [facility] Creatinine 1.41(H) 0.80 - 1.30 mg/dL [facility] Glucose 114 70 - 199 mg/dL [facility] Comment: Interpretive Data Fasting glucose >/= 126 [...] 2022. Calcium 9.8 8.5 - 10.3 mg/dL [facility] Blood 05/20/2025 4:24 PM CDT 05/20/2025 4:40 PM CDT Bar Gamble MD LAB BLOOD ORDERABLES Final R esult [facility] [place] [address] * Respiratory pathogen panel Nasopharyngeal (05/20/2025 8:15 AM CDT) Pathologist [facility] Influenza A RNA Not Detected Not Detected Influenza B RNA Not Detected Not Detected [facility] RSV RNA Not Detected Not Detected [facility] COVID-19 RNA Not Detected Not Detected [facility] Coronavirus 229E RNA Not Detected Not Detected [facility] Coronavirus HKU1 RNA Not Detected Not Detected [facility] Coronavirus NL63 RNA Not Detected Not Detected [facility] Coronavirus OC43 RNA Not Detected Not Detected [facility] Adenovirus DNA Not Detected Not Detected [facility] Metapneumovirus RNA Not Detected Not Detected [facility] Rhinovirus/Enterov irus RNA Not Detected Not Detected [facility] Parainfluenza 1 RNA Not Detected Not Detected [facility] Parainfluenza 2 RNA Not Detected Not Detected [facility] Parainfluenza 3 RNA Not Detected Not Detected [facility] Parainfluenza 4 RNA Not Detected Not Detected [facility] B. pertussis DNA Not Detected Not Detected [facility] B. parapertussis DNA Not Detected Not Detected [facility] C. pneumoniae DNA Not Detected Not Detected [facility] M. pneumoniae DNA Not Detected Not Detected [facility] Nasopharyngeal 05/20/2025 8: 15 AM CDT 05/20/2025 8:30 AM CDT Narrative DULCE MARIA [facility] - 05/20/2025 9:25 AM CDT Is the Patient experiencing symptoms consistent with COVID?->Unknown Surveillance testing for transplant patient?->Yes Interpretive Data The [employer] FilmArray Respiratory Panel (RP2.1) assay is a [...] assay has FDA clearance for testing of PROGRAM SUPPORT CLERK swabs. The performance of additional specimen types has been assessed by the performing laboratory. The performance characteristics of this assay have been determined by [facility] Molecular Infectious Disease Laboratory. Current interpretive data was last revised on 22. Addy Tapia MD LAB MICROBIOLOGY - GENER AL ORDERABLES Final Result Performing Organization Address City/[facility] [place] [address] * Oxyhemoglobin, pulmonary artery (05/20/2025 5:07 AM CDT) Oxyhemoglobin, PA 51.0 % Comment: Interpretive Data No reference range established. Current interpretive data was last revised 2020. Blood 05/20/2025 5:07 AM CDT 05/20/2025 5:23 AM CDT Bar Gamble MD LAB BLOOD ORDERABLES Final R esult Performing Organization Address [facility] [place] [address] * (ABNORMAL) Hemoglobin total, pulmonary artery (05/20/2025 5:07 AM CDT) Hemoglobin total, PA 11.3(L) 13.0 - 17.5 g/dL Blood 05/20/2025 5:07 AM CDT 05/20/2025 5:23 AM CDT Bar Gamble MD LAB BLOOD ORDERABLES Final R esult Performing Organization Address City/[facility] Co de Phone Number [facility] [place] [address] * (ABNORMAL) eGFR (05/20/2025 5:07 AM CDT) [...] ORDERABLES Final R esult Performing Organization Address City/[facility]/ZIP Co de Phone Number [facility] [place] [address] * Lactate, whole blood (05/20/2025 5:07 AM CDT) Pathologist [facility] Lactate, bld 0.7 0.7 - 2.0 mmol/L Blood 05/20/2025 5:07 AM CDT 05/20/2025 5:23 AM CDT us Zev Cowart MD PhD LAB BLOOD ORDERABLES Fi nal Result Performing Organization Address City/[facility]/ZIP Co de Phone Number DULCE MARIA [facility] Department [place] [address] * (ABNORMAL) CBC without differential (05/20/2025 5:07 AM CDT) [facility] WBC 7.01 3.80 - 9.90 K/cumm Hgb 10.6(L) 13.0 - 17.5 g/dL [facility] Hct 31.8(L) 38.9 - 50.3 % [facility] Plt 197 150 - 400 K/cumm [facility] MPV 11.8 9.1 - 12.3 fL [facility] RBC 3.85(L) 4.30 - 5.80 M/cumm [facility] MCV 82.6 81.3 - 96.4 fL [facility] MCH 27.5 27.1 - 33.3 pg [facility] MCHC 33.3 32.3 - 35.7 g/dL [facility] RDW CV 15.1(H) 11.1 - 14.9 % [facility] RDW SD 45.8 35.7 - 48.1 fL [facility] NRBC abs 0.00 0.00 - 0.01 K/cumm [facility] Blood 05/20/2025 5:07 AM CDT 05/20/2025 5:29 AM CDT us Bar Gamble MD LAB BLOOD ORDERABLES Final R esult [facility] Department [place] [address] * Magnesium (05/20/2025 5:07 AM CDT) [facility] Magnesium 2.4 1.4 - 2.5 mg/dL Blood 05/20/2025 5:07 AM CDT 05/20/2025 5:29 AM CDT us Bar Gamble MD LAB BLOOD ORDERABLES Final R esult [facility] [place] [address] * (ABNORMAL) Hepatic function panel (05/20/2025 5:07 AM CDT) Pathologist [facility] Bilirubin, total 0.7 0.1 - 1.2 mg/dL Bilirubin, direct 0.4(H) 0.1 - 0.3 mg/dL [facility] Protein, pl 6.3(L) 6.5 - 8.5 g/dL [facility] Albumin 3.8 3.5 - 5.0 g/dL [facility] Alk phos 263(H) 40 - 130 Units/L [facility] ALT 18 7 - 55 Units/L [facility] AST 19 10 - 50 Units/L [facility] Blood 05/20/2025 5:07 AM CDT 05/20/2025 5:29 AM CDT us Bar Gamble MD LAB BLOOD ORDERABLES Final R esult [facility] [place] [address] * (ABNORMAL) Basic metabolic panel (05/20/2025 5:07 AM CDT) [facility] Sodium 140 135 - 145 mmol/L Potassium, pl 4.0 3.3 - 4.9 mmol/L [facility] Chloride 99 97 - 110 mmol/L [facility] CO2 29 22 - 32 mmol/L [facility] Anion gap 12 2 - 15 mmol/L [facility] BUN 41(H) 6 - 25 mg/dL [facility] Creatinine 1.50(H) 0.80 - 1.30 mg/dL [facility] Glucose 113 70 - 199 mg/dL [facility] Comment: Interpretive Data Fasting glucose >/= 126 [...] 2022. Calcium 9.4 8.5 - 10.3 mg/dL [facility] Blood 05/20/2025 5:07 AM CDT 05/20/2025 5:29 AM CDT us Bar Gamble MD LAB BLOOD ORDERABLES Final R esult Performing Organization Address [facility] Co de Phone Number [facility] [place] [address] * Antibody identification (05/20/2025 3:27 AM CDT) Antibody ID 1 Anti-CD38 Comment:Panreactive -CD38 on reagent RBCs reacting with anti-CD38 therapy. DTT treatment removes cell surface CD38 and allows detection of common clinically significant antibodies except those against [place] antigens. TRANSFUSION 2015;55;[id number] Blood 05/20/2025 3:27 AM CDT 05/20/2025 3:27 AM CDT us Zev Cowart MD PhD LAB BLOOD BANK TEST ORD ERABLES Final Result Performing Organization Address [facility] de Phone Number [facility] [place] [address] * XR Chest 1 View (05/20/2025 3:25 AM CDT) Anatomical Region Laterality Modality Body, Chest N/A Digital Radiogra phy 05/20/2025 9:36 AM CDT Impressions 05/20/2025 9:36 AM CDT 1. 05/19/2025, 12:17 PM: Comparison is made to prior radiograph from the same date. Peripherally inserted central venous catheter tip overlies the superior vena cava. The Packwood-Ajyne catheter is in the right lower lobe pulmonary artery. There are small bilateral pleural effusions with bibasilar atelectasis. No pneumonic consolidation or pneumothorax. Stable heart size. 2. 05/19/2025, 3:03 PM: Comparison is made to prior radiograph from the same date. There is no significant interval change. 3. 05/20/2025, 1:40 AM: Comparison is made to 05/19/2025. The Packwood-Jayne catheter has been retracted and now overlies [...] tip overlies the superior vena cava. The Packwood-Jayne catheter is in the right lower lobe pulmonary artery. There are small bilateral pleural effusions with bibasilar atelectasis. No pneumonic consolidation or pneumothorax. Stable heart size. 2. 05/19/2025, 3:03 PM: Comparison is made to prior radiograph from the same date. There is no significant interval change. 3. 05/20/2025, 1:40 AM: Comparison is made to 05/19/2025. The Packwood-Jayne catheter has been retracted and now overlies [...] ur Straw Yellow Clarity, ur Clear Clear [facility] Specific gravity, ur 1.009 1.003 - 1.030 [facility] pH, urine 6.5 [facility] Comment: Interpretive Data U rine pH is affected by diet, medications, systemic acid-base disturbances, and renal tubular function. pH may affect urinary stone formation. For example, urine pH below 6.0 may help reduce the tendency for calcium phosphate stones and pH greater than 6.0 may reduce the tendency for uric acid stone formation. Source: [facility] Current Interpretive Data was last revised on 2017 Protein, ur ql Negative Negative [facility] Glucose, ur ql Negative Negative [facility] Ketones, ur Negative Negative [facility] Bilirubin, ur Negative Negative [facility] Blood, ur Negative Negative [facility] Urobilinogen, ur <2.0 <2.0 mg/dL [facility] Nitrite, ur Negative Negative [facility] Leukocyte esterase, ur Negative Negative [facility] UA reflex comment Reflex conditions for microscopic UA and culture not met. [facility] Urine 05/20/2025 2:28 AM CDT 05/20/2025 2:40 AM CDT Zev Cowart MD PhD LAB MICROBIOLOGY - GENE RAL ORDERABLES Final Result Performing Organization Address [facility] Co de Phone Number [facility] Department [place] [address] * Collection Task for HLA Antibody Screen (05/20/2025 2:02 AM CDT) [facility] HLA Antibody Screen by [facility] Received Blood 05/20/2025 2:02 AM CDT 05/21/2025 7:22 AM CDT Zev Cowart MD PhD LAB BLOOD ORDERABLES Fi nal Result Performing Organization Address [facility]/ZIP Co de Phone Number [facility] [place] [address] * Hepatitis C (HCV) RNA PCR, quantitative Blood (05/20/2025 2:02 AM CDT) [facility] HCV RNA result Not Detected [facility] Comment: The quantifiable range of this assay is 15 IU/mL to 100,000,000 IU/mL (1.18 log IU/mL to 8.00 log IU/mL). Testing was performed by the CARLOS 6800 HCV Test ([employer] Testing performed at [facility] Current Interpretive Data was last revised on 2021 Blood 05/20/2025 2:02 AM CDT 05/20/2025 2:23 AM CDT Zev Cowart MD PhD LAB MICROBIOLOGY - GENE RAL ORDERABLES Final Result Performing Organization Address City/[facility] Co de Phone Number DULCE MARIA [facility] [place] [address] [facility] * HLA Crossmatch Report (05/20/2025 2:01 AM CDT) Zev Cowart MD PhD LAB BLOOD ORDERABLES Fi nal Result * HLA Crossmatch, ALLO (05/20/2025 2:01 AM CDT) Blood 05/20/2025 2:01 AM CDT 05/21/2025 6:44 AM CDT Narrative [facility] - 05/21/2025 6:44 AM CDT Zev Cowart MD PhD LAB BLOOD ORDERABLES Fi nal Result Performing Organization Address [facility] Co de Phone Number [facility] * HLA Antibody Screen by PRA or SAB per Schedule (Class I and Class II) (05/20/2025 2:01 AM CDT) Blood 05/20/2025 2:01 AM CDT Narrative [facility] - A&P TECHNICIAN Sample received in lab. Single Antigen Antibody Screen ordered. us Zev Cowart MD PhD LAB BLOOD ORDERABLES Fi nal Result Performing Organization Address [facility] Co de Phone Number [facility] * (ABNORMAL) eGFR (05/20/2025 2:01 AM CDT) Pathologist [facility] eGFR 52(L) >=60 mL/min/1. 73 m2 Comment: [...] 2:01 AM CDT 05/20/2025 2:20 AM CDT us Zev Cowart MD PhD LAB BLOOD ORDERABLES Fi nal Result [facility] [place] [address] * (ABNORMAL) Differential, auto (05/20/2025 2:01 AM CDT) Neutrophil abs 6.15 1.50 - 6.50 K/cumm Imm gran abs 0.02 0.00 - 0.10 K/cumm [facility] Lymphocyte abs 0.63(L) 0.80 - 3.30 K/cumm [facility] Monocyte abs 0.62 0.20 - 0.80 K/cumm [facility] Eosinophil abs 0.25 0.00 - 0.50 K/cumm [facility] Basophil abs 0.03 0.00 - 0.10 K/cumm [facility] Neutrophil pct 79.8 % [facility] Comment: Interpretive Data Percent cell count reference ranges are not reported, since discordance with absolute values may lead to misinterpretation of CBC data. Current Interpretive Data was last revised on 2018. Imm gran pct 0.3 % [facility] Comment: Interpretive Data Percent cell count reference ranges are not reported, since discordance with absolute values may lead to misinterpretation of CBC data. Current Interpretive Data was last revised on 2018. Lymphocyte pct 8.2 % [facility] Comment: Interpretive Data Percent cell count reference ranges are not reported, since discordance with absolute values may lead to misinterpretation of CBC data. Current Interpretive Data was last revised on 2018. Monocyte pct 8.1 % [facility] Comment: Interpretive Data Percent cell count reference ranges are not reported, since discordance with absolute values may lead to misinterpretation of CBC data. Current Interpretive Data was last revised on 2018. Eosinophil pct 3.2 % [facility] Comment: Interpretive Data Percent cell count reference ranges are not reported, since discordance with absolute values may lead to misinterpretation of CBC data. Current Interpretive Data was last revised on 2018. Basophil pct 0.4 % [facility] Comment: Interpretive Data Percent cell count reference ranges are not reported, since discordance with absolute values may lead to misinterpretation of CBC data. Current Interpretive Data was last revised on 2018. Blood 05/20/2025 2:01 AM CDT 05/20/2025 2:11 AM CDT Zev Cowart MD PhD LAB BLOOD ORDERABLES [facility] Result [facility] [place] [address] * HIV 1/2 Antibody plus p24 Antigen Blood (05/20/2025 2:01 AM CDT) HIV 1/2 ab + p24 ag [...] RAL ORDERABLES Final Result Performing Organization Address [facility] [place] [address] * (ABNORMAL) CMV, IgG Blood (05/20/2025 2:01 AM CDT) [facility] CMV IgG Positive( A) Negative Comment: [...] RAL ORDERABLES Final Result Performing Organization Address [facility] [place] [address] * HLA Antibody Screen - SAB (Class I and Class II) (05/20/2025 2:01 AM CDT) Pathologist [facility] Class I Treatment EDTA [facility] Class I [...] a method developed and validated by the [facility] HLA laboratory based on an FDA-approved IVD kit (LABScreen Single-Antigen, xAd, [place], [place]). All patient serum samples are pretreated with EDTA before the screen to prevent complement interference. Additional serum treatments, such as adsorption and DTT treatment, may be performed as indicated. Interpretive comments: Low risk: MFI [id number]. Moderate risk: MFI [id number]. Increased risk: MFI >/= 5000. The presence [...] to avoid. Testing performed at the [facility], [address] [place] [address], 5th floor, [place], [address]. [place] # [id number]. Myrna Pendleton, Ph.D., Blind[employer]ch [employer]ining Feller, HLA Laboratory Zach Bermudez M.D., Ph.D., Cash Posting Representative, HLA Laboratory Dona Cota, Ph.D., CLIA Cash Posting Representative, [facility] Current methodology and interpretive comments last revised on 12/16/2022. Zev Cowart MD PhD LAB BLOOD ORDERABLES Fi nal Result [facility] * (ABNORMAL) CBC with auto differential (05/20/2025 2:01 AM CDT) [facility] WBC 7.70 3.80 - 9.90 K/cumm Hgb 10.1(L) 13.0 - 17.5 g/dL [facility] Hct 30.8(L) 38.9 - 50.3 % [facility] Plt 187 150 - 400 K/cumm [facility] MPV 11.3 9.1 - 12.3 fL [facility] RBC 3.69(L) 4.30 - 5.80 M/cumm [facility] MCV 83.5 81.3 - 96.4 fL [facility] MCH 27.4 27.1 - 33.3 pg [facility] MCHC 32.8 32.3 - 35.7 g/dL [facility] RDW CV 15.1(H) 11.1 - 14.9 % [facility] RDW SD 46.3 35.7 - 48.1 fL [facility] NRBC abs 0.00 0.00 - 0.01 K/cumm [facility] Blood 05/20/2025 2:01 AM CDT 05/20/2025 2:11 AM CDT us Zev Cowart MD PhD LAB BLOOD ORDERABLES Fi nal Result Performing Organization Address [facility] de Phone Number [facility] [place] [address] * Hepatitis C antibody Blood (05/20/2025 2:01 AM CDT) [facility] Hep C Ab Nonreactive Nonreactive Comment:Antibodies to HCV no t detected. Does NOT exclude the possibility of recent exposure to HCV. Current interpretive data was last revised on 22 Blood 05/20/2025 2:01 AM CDT 05/20/2025 2:17 AM CDT Zev Cowart MD PhD LAB MICROBIOLOGY - GENE RAL ORDERABLES Final Result Performing Organization Address [facility] Co de Phone Number [facility] [place] [address] * (ABNORMAL) Priscilla-Lewis virus (EBV) antibody panel Blood (05/20/2025 2:01 AM CDT) [facility] EBV nuclear Ab Positive(A) Negative Comment:Indicates the presen ce of detectable IgG antibody to EBV Nuclear Antigen. EBV VCA IgG Positive(A) Negative [facility] Comment:Indicates the presen ce of antibody; 90% of the adult population will have been infected with EBV sometime in the past. EBV VCA IgM Negative Negative [facility] Comment:No detectable IgM an tibody to EBV-VCA. A negative result indicates no current infection with EBV. If clinical suspicion of acute EBV infection is present, testing should be repeated after one week. EBV interp Past Infection [facility] Blood 05/20/2025 2:01 AM CDT 05/20/2025 2:17 AM CDT us Zev Cowart MD PhD LAB MICROBIOLOGY - GENE RAL ORDERABLES Final Result Performing Organization Address [facility] Co de Phone Number [facility] [place] [address] * Hepatitis B core antibody, IgM Blood (05/20/2025 2:01 AM CDT) [facility] Hep B core IgM Nonreactive Nonreactive Blood 05/20/2025 2:01 AM CDT 05/20/2025 2:17 AM CDT Zev Cowart MD PhD LAB MICROBIOLOGY - GENE RAL ORDERABLES Final Result Performing Organization Address City/[facility] [place] [address] * Hepatitis B core antibody, total Blood (05/20/2025 2:01 AM CDT) [facility] Hep B core IgG/IgM Nonreactive Nonreactive Blood 05/20/2025 2:01 AM CDT 05/20/2025 2:17 AM CDT Zev Cowart MD PhD LAB MICROBIOLOGY - GENE RAL ORDERABLES Final Result Performing Organization Address [facility] Co de Phone Number [facility] [place] [address] * Toxoplasma gondii antibody, IgG Blood (05/20/2025 2:01 AM CDT) [facility] Toxoplasma IgG Negative Negative Comment: Interpretive Data Negative - No detectable antibody. Equivocal - Presence of detectable antibody cannot be determined. Positive - Detectable level of antibody present. Current interpretive data was last revised on 2017. Blood 05/20/2025 2:01 AM CDT 05/20/2025 2:17 AM CDT Zev Cowart MD PhD LAB MICROBIOLOGY - GENE RAL ORDERABLES Final Result Performing Organization Address [facility] [place] [address] * Hepatitis B surface antibody (immune status) Blood (05/20/2025 2:01 AM CDT) [facility] HBsAb (immune status) Nonreactive Comment:This result is consi stent with a lack of immunity to Hepatitis B Virus when used in the setting of routine screening. Current interpretative data was last revised on 22 Blood 05/20/2025 2:01 AM CDT 05/20/2025 2:17 AM CDT Zev Cowart MD PhD LAB MICROBIOLOGY - GENE RAL ORDERABLES Final Result Performing Organization Address [facility] Co de Phone Number [facility] [place] [address] * Hepatitis B Surface Antigen Blood (05/20/2025 2:01 AM CDT) HepBsAg Nonreactive Nonreactive Blood 05/20/2025 2:01 AM CDT 05/20/2025 2:17 AM CDT Zev Cowart MD PhD LAB MICROBIOLOGY - GENE RAL ORDERABLES Final Result Performing Organization Address [facility] de Phone Number [facility] Department [place] [address] * (ABNORMAL) aPTT (05/20/2025 2:01 AM CDT) Pathologist [facility] aPTT 75(H) 28 - 38 sec Comment: Interpretive Data Heparin therapeutic range: 66.0 - 100.0 seconds. Range based on correlation with therapeutic heparin activity range of 0.3 - 0.7 Units/mL. Current interpretive data was last revised on 2023. Blood 05/20/2025 2:01 AM CDT 05/20/2025 2:18 AM CDT Zev Cowart MD PhD LAB BLOOD ORDERABLES Fi nal Result Performing Organization Address [facility] de Phone Number [facility] [place] [address] * (ABNORMAL) Protime-INR (05/20/2025 2:01 AM CDT) Pathologist [facility] PT 17.4(H) 9.7 - 13.0 sec INR 1.60(H) 0.90 - 1.20 [facility] Comment: Interpretive data Oral anticoagulant therapeutic ranges: Venous thromboembolism prophylaxis or treatment: 2.0-3.0 CARDIOLOGY Standard range: 2.0-3.0 High-intensity range: 2.5-3.5 Refer to indication-specific guidelines for appropriate target ranges for prosthetic heart valve replacement. Current interpretive data was last revised on 2019. Blood 05/20/2025 2:01 AM CDT 05/20/2025 2:18 AM CDT Zev Cowart MD PhD LAB BLOOD ORDERABLES Fi nal Result Performing Organization Address [facility] [place] [address] * (ABNORMAL) Type and screen (05/20/2025 2:01 AM CDT) Pathologist [facility] Poppy, indirect Positive(A) ABO Rh O Positive [facility] Blood 05/20/2025 2:01 AM CDT 05/20/2025 2:24 AM CDT Narrative [facility] - 05/20/2025 3:27 AM CDT Has the patient had Daratumumab or Isatuximab in the past 6 months?->Unknown Zev Cowart MD PhD LAB BLOOD BANK TEST ORD ERABLES Final Result Performing Organization Address [facility] de Phone Number [facility] [place] [address] * (ABNORMAL) Hemoglobin A1c (05/20/2025 2:01 AM CDT) [facility] Hgb A1C 6.8(H) 4.0 - 5.6 % Estimated Average Glucose 148 mg/dL [facility] Comment: The ADA recommends reporting an estimated Average Glucose (eAG) with all Hemoglobin A1c results using the equation derived from a study of 507 normal and diabetic adults. Minority populations were underrepresented and children were not included. (Diabetes Care 2020; 43(S1): S66-S76). The eAG is not equivalent to a fasting glucose. Blood 05/20/2025 2:01 AM CDT 05/20/2025 2:11 AM CDT Narrative [facility] - 05/20/2025 4:37 AM CDT Indication for repeat testing:->Health monitoring Zev Cowart MD PhD LAB BLOOD ORDERABLES Fi nal Result Performing Organization Address [facility] de Phone Number [facility] [place] [address] * (ABNORMAL) Comprehensive metabolic panel (05/20/2025 2:01 AM CDT) Sodium 138 135 - 145 mmol/L Potassium, pl 3.5 3.3 - 4.9 mmol/L [facility] Chloride 97 97 - 110 mmol/L [facility] CO2 29 22 - 32 mmol/L [facility] Anion gap 12 2 - 15 mmol/L [facility] BUN 43(H) 6 - 25 mg/dL [facility] Creatinine 1.52(H) 0.80 - 1.30 mg/dL [facility] Glucose 111 70 - 199 mg/dL [facility] Comment: Interpretive Data Fasting glucose >/= 126 [...] 2022. Calcium 9.3 8.5 - 10.3 mg/dL [facility] Bilirubin, total 0.7 0.1 - 1.2 mg/dL [facility] Protein, pl 6.3(L) 6.5 - 8.5 g/dL [facility] Albumin 3.9 3.5 - 5.0 g/dL [facility] Alk phos 265(H) 40 - 130 Units/L [facility] ALT 18 7 - 55 Units/L [facility] AST 18 10 - 50 Units/L [facility] Blood 05/20/2025 2:01 AM CDT 05/20/2025 2:20 AM CDT us Zev Cowart MD PhD LAB BLOOD ORDERABLES Fi nal Result Performing Organization Address [facility]/State/ZIP Co de Phone Number [facility] [place] [address] * XR Abdomen 1 View AP (05/20/2025 1:46 AM CDT) Anatomical Region Laterality Modality Body, Abdomen N/A Digital Radiogra phy 05/20/2025 11:5 7 AM CDT Impressions 05/20/2025 2:[address] 04/08/2025. Partially imaged Packwood-Jayne catheter. Right upper quadrant cholecystectomy clips. Normal [...] transplant IMPRESSION: Comparison CT 04/08/2025. Partially imaged Packwood-Jayne catheter. Right upper quadrant cholecystectomy clips. Normal [...] tip overlies the superior vena cava. The Packwood-Jayne catheter is in the right lower lobe pulmonary artery. There are small bilateral pleural effusions with bibasilar atelectasis. No pneumonic consolidation or pneumothorax. Stable heart size. 2. 05/19/2025, 3:03 PM: Comparison is made to prior radiograph from the same date. There is no significant interval change. 3. 05/20/2025, 1:40 AM: Comparison is made to 05/19/2025. The Packwood-Jayne catheter has been retracted and now overlies [...] tip overlies the superior vena cava. The Packwood-Jayne catheter is in the right lower lobe pulmonary artery. There are small bilateral pleural effusions with bibasilar atelectasis. No pneumonic consolidation or pneumothorax. Stable heart size. 2. 05/19/2025, 3:03 PM: Comparison is made to prior radiograph from the same date. There is no significant interval change. 3. 05/20/2025, 1:40 AM: Comparison is made to 05/19/2025. The Packwood-Jayne catheter has been retracted and now overlies the main pulmonary artery. 4. 05/20/2025, 3:22 AM:: Comparison is made to the prior examination from the same date. No significant interval change. Electronically signed by: Jamie Lugo M.D. us Bra Gamble MD IMG XR PROCEDURES Final Resu lt * Prepare platelets: 2 Units (05/20/2025 1:23 AM CDT) Product code [id number] Unit Number [id number] [facility] Product Blood Type OPOS [facility] Dispense Status PRESUMED TRANSFUSED [facility] Blood Venous blood specimen / Unknown 05/20/2025 1:23 AM CDT 05/20/2025 1:33 AM CDT Narrative [facility] - 05/21/2025 4:01 PM CDT Other indication->for invasive procedure Are special requirements needed? (all products are leukoreduced)->No Date required:-20250520 PLT # of Units:-2-Units Reasons:-Other (Specify)} Zev Cowart MD PhD BLOOD BANK PRODUCT ORDE [facility] Final Result [facility] [place] [address] * Prepare RBC: 8 Units (05/20/2025 1:23 AM CDT) Product code [id number] Unit Number [id number] 0-C [facility] Product Blood Type OPOS [facility] Dispense Status RETURNED [facility] Product code [id number] [facility] Unit Number [id number] 0-F [facility] Product Blood Type OPOS [facility] Dispense Status RETURNED [facility] Product code [id number] [facility] Unit Number [id number] 5-8 [facility] Product Blood Type OPOS [facility] Dispense Status RETURNED [facility] Product code [id number] [facility] Unit Number [id number] 4-Z [facility] Product Blood Type OPOS [facility] Dispense Status RETURNED [facility] Product code [id number] [facility] Unit Number [id number] 7-7 [facility] Product Blood Type OPOS [facility] Dispense Status RETURNED [facility] Product code [id number] [facility] Unit Number [id number] 4-9 [facility] Product Blood Type ONEG [facility] Dispense Status RETURNED [facility] Product code [id number] [facility] Unit Number [id number] 1-G [facility] Product Blood Type OPOS D[facility] Dispense Status RETURNED [facility] Product code [id number] [facility] Unit Number [id number] 9-6 [facility] Product Blood Type OPOS [facility] Dispense Status RETURNED [facility] Blood 05/20/2025 1:23 AM CDT 05/20/2025 1:33 AM CDT Narrative [facility] - 05/21/2025 6:22 AM CDT Are special requirements needed? (All products are leukoreduced and CMV- safe)- >No Date required:-20250520 LRRBC # of [id number] Reasons:-Intra-op transfusion} us Zev Cowart MD PhD BLOOD BANK PRODUCT ORDE RABLES Final Result Performing Organization Address City/[facility]/ZIP Co de Phone Number [facility] Department [place] [address] * Potassium, whole blood (05/20/2025 12:09 AM CDT) Potassium, bld 3.7 3.3 - 4.9 mmol/L Blood 05/20/2025 12:0 9 AM CDT 05/20/2025 12:16 AM CDT us Bar Gamble MD LAB BLOOD ORDERABLES Final R esult [facility] [place] [employer] [place] [address] * Lactate, whole blood (05/20/2025 12:09 AM CDT) Lactate, bld 0.8 0.7 - 2.0 mmol/L Blood 05/20/2025 12:0 9 AM CDT 05/20/2025 12:16 AM CDT Zev Cowart MD PhD LAB BLOOD ORDERABLES Fi nal Result Performing Organization Address [facility] Co de Phone Number [facility] Department [place] [address] * (ABNORMAL) aPTT (05/19/2025 11:29 PM CDT) aPTT 74(H) 28 - 38 sec Comment: Interpretive Data Heparin therapeutic range: 66.0 - 100.0 seconds. Range based on correlation with therapeutic heparin activity range of 0.3 - 0.7 Units/mL. Current interpretive data was last revised on 2023. Blood 05/19/2025 11:2 9 PM CDT 05/20/2025 12:08 AM CDT Narrative [facility] - 05/20/2025 12:26 AM CDT STAT PTT [...] drawn peripherally (not from C[facility]). Libia Suarez PROGRAM SUPPORT CLERK LAB BLOOD ORDERABLES Final Re sult Performing Organization Address City/[facility]/ZIP Co de Phone Number [facility] MARIA [facility] [place] [address] * (ABNORMAL) Protime-INR (05/19/2025 11:29 PM CDT) PT 17.3(H) 9.7 - 13.0 sec INR 1.59(H) 0.90 - 1.20 [facility] Comment: Interpretive data Oral anticoagulant therapeutic ranges: [...] ORDERABLES Fi nal Result Performing Organization Address [facility] Co de Phone Number [facility] [place] [address] * Oxyhemoglobin, pulmonary artery (05/19/2025 5:01 PM CDT) Oxyhemoglobin, PA 60.5 % Comment: Interpretive Data No reference range established. Current interpretive data was last revised 2020. Blood 05/19/2025 5:01 PM CDT 05/19/2025 5:09 PM CDT Bar Gamble MD LAB BLOOD ORDERABLES Final R esult Performing Organization Address [facility] Co de Phone Number [facility] [place] [address] * (ABNORMAL) Hemoglobin total, pulmonary artery (05/19/2025 5:01 PM CDT) Hemoglobin total, PA 11.3(L) 13.0 - 17.5 g/dL Blood 05/19/2025 5:01 PM CDT 05/19/2025 5:09 PM CDT Bar Gamble MD LAB BLOOD ORDERABLES Final R esult Performing Organization Address [facility] Co de Phone Number [facility] [place] [address] * (ABNORMAL) eGFR (05/19/2025 5:01 PM CDT) [...] ORDERABLES Final R esult Performing Organization Address City/[facility] Co de Phone Number [facility] [place] [address] * Lactate, whole blood (05/19/2025 5:01 PM CDT) Lactate, bld 0.8 0.7 - 2.0 mmol/L Blood 05/19/2025 5:01 PM CDT 05/19/2025 5:09 PM CDT Bar Gamble MD LAB BLOOD ORDERABLES Final R esult Performing Organization Address City/[facility]/ZIP Co de Phone Number [facility] [place] [address] * Magnesium (05/19/2025 5:01 PM CDT) Magnesium 2.4 1.4 - 2.5 mg/dL Blood 05/19/2025 5:01 PM CDT 05/19/2025 5:13 PM CDT Bar Gamble MD LAB BLOOD ORDERABLES Final R esult [facility] [place] [address] * (ABNORMAL) Basic metabolic panel (05/19/2025 5:01 PM CDT) [facility] Sodium 136 135 - 145 mmol/L Potassium, pl 3.7 3.3 - 4.9 mmol/L [facility] Chloride 96(L) 97 - 110 mmol/L [facility] CO2 29 22 - 32 mmol/L [facility] Anion gap 11 2 - 15 mmol/L [facility] BUN 42(H) 6 - 25 mg/dL [facility] Creatinine 1.48(H) 0.80 - 1.30 mg/dL [facility] Glucose 116 70 - 199 mg/dL [facility] Comment: Interpretive Data Fasting glucose >/= 126 [...] 2022. Calcium 9.6 8.5 - 10.3 mg/dL [facility] Blood 05/19/2025 5:01 PM CDT 05/19/2025 5:13 PM CDT Bar Gamble MD LAB BLOOD ORDERABLES Final R esult [facility] [place] [address] * XR Chest 1 View (05/19/2025 3:10 PM CDT) Anatomical Region Laterality Modality Body, Chest N/A Computed Radiogr aphy 05/20/2025 9:36 AM CDT Impressions 05/20/2025 9:36 AM CDT 1. 05/19/2025, 12:17 PM: Comparison is made to prior radiograph from the same date. Peripherally inserted central venous catheter tip overlies the superior vena cava. The Packwood-Jayne catheter is in the right lower lobe pulmonary artery. There are small bilateral pleural effusions with bibasilar atelectasis. No pneumonic consolidation or pneumothorax. Stable heart size. 2. 05/19/2025, 3:03 PM: Comparison is made to prior radiograph from the same date. There is no significant interval change. 3. 05/20/2025, 1:40 AM: Comparison is made to 05/19/2025. The Packwood-Jayne catheter has been retracted and now overlies [...] tip overlies the superior vena cava. The Packwood-Jayne catheter is in the right lower lobe pulmonary artery. There are small bilateral pleural effusions with bibasilar atelectasis. No pneumonic consolidation or pneumothorax. Stable heart size. 2. 05/19/2025, 3:03 PM: Comparison is made to prior radiograph from the same date. There is no significant interval change. 3. 05/20/2025, 1:40 AM: Comparison is made to 05/19/2025. The Packwood-Jayne catheter has been retracted and now overlies [...] LAB BLOOD ORDERABLES Final R esult [facility] [place] [employer] [place] [address] * (ABNORMAL) Hemoglobin total, pulmonary artery (05/19/2025 12:48 PM CDT) Hemoglobin total, PA 11.1(L) 13.0 - 17.5 g/dL Blood 05/19/2025 12:4 8 PM CDT 05/19/2025 1:02 PM CDT Bar Gamble MD LAB BLOOD ORDERABLES Final R esult [facility] [place] [address] * Potassium, whole blood (05/19/2025 12:48 PM CDT) Potassium, bld 4.3 3.3 - 4.9 mmol/L Blood 05/19/2025 12:4 8 PM CDT 05/19/2025 1:02 PM CDT Bar Gamble MD LAB BLOOD ORDERABLES Final R esult Performing Organization Address City/[facility] Co de Phone Number [facility] [place] [address] * Lactate, whole blood (05/19/2025 12:48 PM CDT) Lactate, bld 1.3 0.7 - 2.0 mmol/L Blood 05/19/2025 12:4 8 PM CDT 05/19/2025 1:02 PM CDT Bar Gamble MD LAB BLOOD ORDERABLES Final R esult Performing Organization Address [facility] Co de Phone Number [facility] [place] [address] * XR Chest 1 View (05/19/2025 12:29 PM CDT) Anatomical Region Laterality Modality Body, Chest N/A Computed Radiogr aphy 05/20/2025 9:36 AM CDT Impressions 05/20/2025 9:36 AM CDT 1. 05/19/2025, 12:17 PM: Comparison is made to prior radiograph from the same date. Peripherally inserted central venous catheter tip overlies the superior vena cava. The Packwood-Jayne catheter is in the right lower lobe pulmonary artery. There are small bilateral pleural effusions with bibasilar atelectasis. No pneumonic consolidation or pneumothorax. Stable heart size. 2. 05/19/2025, 3:03 PM: Comparison is made to prior radiograph from the same date. There is no significant interval change. 3. 05/20/2025, 1:40 AM: Comparison is made to 05/19/2025. The Packwood-Jayne catheter has been retracted and now overlies [...] tip overlies the superior vena cava. The Packwood-Jayne catheter is in the right lower lobe pulmonary artery. There are small bilateral pleural effusions with bibasilar atelectasis. No pneumonic consolidation or pneumothorax. Stable heart size. 2. 05/19/2025, 3:03 PM: Comparison is made to prior radiograph from the same date. There is no significant interval change. 3. 05/20/2025, 1:40 AM: Comparison is made to 05/19/2025. The Packwood-Jayne catheter has been retracted and now overlies [...] 7:21 AM CDT A left internal jugular Packwood-Jayne catheter is present in unchanged position with [...] 8:35 AM IMPRESSION: A left internal jugular Packwood-Jayne catheter is present in unchanged position with [...] LAB BLOOD ORDERABLE S Final Result [facility] [place] [address] * Magnesium (05/19/2025 5:09 AM CDT) Pathologist [facility] Magnesium 2.2 1.4 - 2.5 mg/dL Blood 05/19/2025 5:09 AM CDT 05/19/2025 5:53 AM CDT Ramiro Devries MD LAB BLOOD ORDERABLE S Final Result Performing Organization Address [facility] de Phone Number [facility] Department [place] [address] * (ABNORMAL) Basic metabolic panel (05/19/2025 5:09 AM CDT) [facility] Sodium 140 135 - 145 mmol/L Potassium, pl 3.8 3.3 - 4.9 mmol/L [facility] Chloride 99 97 - 110 mmol/L [facility] CO2 30 22 - 32 mmol/L [facility] Anion gap 11 2 - 15 mmol/L [facility] BUN 42(H) 6 - 25 mg/dL [facility] Creatinine 1.51(H) 0.80 - 1.30 mg/dL [facility] Glucose 116 70 - 199 mg/dL [facility] Comment: Interpretive Data Fasting glucose >/= 126 [...] 2022. Calcium 9.3 8.5 - 10.3 mg/dL [facility] Blood 05/19/2025 5:09 AM CDT 05/19/2025 5:53 AM CDT us Ramiro Devries MD LAB BLOOD ORDERABLE S Final Result Performing Organization Address City/[facility] Co de Phone Number [facility] [place] [address] * Oxyhemoglobin, pulmonary artery (05/19/2025 5:03 AM CDT) Oxyhemoglobin, PA 64.3 % Comment: Interpretive Data No reference range established. Current interpretive data was last revised 2020. Blood 05/19/2025 5:03 AM CDT 05/19/2025 5:49 AM CDT us Bar Gamble MD LAB BLOOD ORDERABLES Final R esult Performing Organization Address [facility] [place] [address] * (ABNORMAL) Hemoglobin total, pulmonary artery (05/19/2025 5:03 AM CDT) Hemoglobin total, PA 10.4(L) 13.0 - 17.5 g/dL Blood 05/19/2025 5:03 AM CDT 05/19/2025 5:49 AM CDT us Bar Gamble MD LAB BLOOD ORDERABLES Final R esult Performing Organization Address City/[facility] Co de Phone Number [facility] [place] [address] * Potassium, whole blood (05/19/2025 5:03 AM CDT) Potassium, bld 3.6 3.3 - 4.9 mmol/L Blood 05/19/2025 5:03 AM CDT 05/19/2025 5:49 AM CDT Bar Gamble MD LAB BLOOD ORDERABLES Final R esult Performing Organization Address [facility] Co de Phone Number [facility] [place] [address] * Lactate, whole blood (05/19/2025 5:03 AM CDT) Lactate, bld 0.7 0.7 - 2.0 mmol/L Blood 05/19/2025 5:03 AM CDT 05/19/2025 5:49 AM CDT Bar Gamble MD LAB BLOOD ORDERABLES Final R esult Performing Organization Address [facility] Co de Phone Number [facility] [place] [address] * Oxyhemoglobin, pulmonary artery (05/18/2025 10:41 PM CDT) Pathologist [facility] Oxyhemoglobin, PA 67.6 % Comment: Interpretive Data No reference range established. Current interpretive data was last revised 2020. Blood 05/18/2025 10:4 1 PM CDT 05/18/2025 10:59 PM CDT Bar Gamble MD LAB BLOOD ORDERABLES Final R esult Performing Organization Address [facility] Co de Phone Number [facility] [place] [address] * (ABNORMAL) Hemoglobin total, pulmonary artery (05/18/2025 10:41 PM CDT) Pathologist [facility] Hemoglobin total, PA 10.7(L) 13.0 - 17.5 g/dL Blood 05/18/2025 10:4 1 PM CDT 05/18/2025 10:59 PM CDT Bar Gamble MD LAB BLOOD ORDERABLES Final R esult Performing Organization Address City/[facility] Co de Phone Number [facility] [place] [address] * Potassium, whole blood (05/18/2025 10:41 PM CDT) Potassium, bld 3.8 3.3 - 4.9 mmol/L Blood 05/18/2025 10:4 1 PM CDT 05/18/2025 10:59 PM CDT Bar Gamble MD LAB BLOOD ORDERABLES Final R esult Performing Organization Address [facility] Co de Phone Number [facility] [place] [address] * (ABNORMAL) eGFR (05/18/2025 10:41 PM CDT) [...] ORDERABLES Final R esult Performing Organization Address [facility] Co de Phone Number [facility] Department [place] [address] * Lactate, whole blood (05/18/2025 10:41 PM CDT) Lactate, bld 0.9 0.7 - 2.0 mmol/L Blood 05/18/2025 10:4 1 PM CDT 05/18/2025 10:59 PM CDT us Zev Cowart MD PhD LAB BLOOD ORDERABLES Fi nal Result Performing Organization Address [facility] Co de Phone Number [facility] [place] [address] * (ABNORMAL) aPTT (05/18/2025 10:41 PM CDT) aPTT 58(H) 28 - 38 sec Comment: Interpretive Data Heparin therapeutic range: 66.0 - 100.0 seconds. Range based on correlation with therapeutic heparin activity range of 0.3 - 0.7 Units/mL. Current interpretive data was last revised on 2023. Blood 05/18/2025 10:4 1 PM CDT 05/18/2025 11:15 PM CDT Narrative [facility] - 05/18/2025 11:37 PM CDT STAT PTT [...] ORDERABLES Final Re sult Performing Organization Address City/[facility]/ZIP Co de Phone Number [facility] [place] [address] * (ABNORMAL) CBC without differential (05/18/2025 10:41 PM CDT) [facility] WBC 7.74 3.80 - 9.90 K/cumm Hgb 10.2(L) 13.0 - 17.5 g/dL [facility] Hct 31.6(L) 38.9 - 50.3 % [facility] Plt 205 150 - 400 K/cumm [facility] MPV 11.5 9.1 - 12.3 fL [facility] RBC 3.79(L) 4.30 - 5.80 M/cumm [facility] MCV 83.4 81.3 - 96.4 fL [facility] MCH 26.9(L) 27.1 - 33.3 pg [facility] MCHC 32.3 32.3 - 35.7 g/dL [facility] RDW CV 15.5(H) 11.1 - 14.9 % [facility] RDW SD 46.8 35.7 - 48.1 fL [facility] NRBC abs 0.00 0.00 - 0.01 K/cumm [facility] Blood 05/18/2025 10:4 1 PM CDT 05/18/2025 11:11 PM CDT us Bar Gamble MD LAB BLOOD ORDERABLES Final R esult Performing Organization Address City/[facility]/ZIP Co de Phone Number [facility] [place] [address] * Phosphorus (05/18/2025 10:41 PM CDT) Pathologist [facility] Phosphorus, pl 3.8 2.3 - 4.5 mg/dL Blood 05/18/2025 10:4 1 PM CDT 05/18/2025 11:10 PM CDT Zev Cowart MD PhD LAB BLOOD ORDERABLES Fi nal Result Performing Organization Address City/[facility] Co de Phone Number [facility] [place] [address] * Magnesium (05/18/2025 10:41 PM CDT) [facility] Magnesium 2.3 1.4 - 2.5 mg/dL Blood 05/18/2025 10:4 1 PM CDT 05/18/2025 11:10 PM CDT Bar Gamble MD LAB BLOOD ORDERABLES Final R esult Performing Organization Address [facility] Co de Phone Number [facility] [place] [address] * (ABNORMAL) Hepatic function panel (05/18/2025 10:41 PM CDT) [facility] Bilirubin, total 0.5 0.1 - 1.2 mg/dL Bilirubin, direct 0.3 0.1 - 0.3 mg/dL [facility] Protein, pl 6.0(L) 6.5 - 8.5 g/dL [facility] Albumin 3.9 3.5 - 5.0 g/dL [facility] Alk phos 268(H) 40 - 130 Units/L [facility] ALT 17 7 - 55 Units/L [facility] AST 18 10 - 50 Units/L [facility] Blood 05/18/2025 10:4 1 PM CDT 05/18/2025 11:10 PM CDT Bar Gamble MD LAB BLOOD ORDERABLES Final R esult Performing Organization Address City/[facility] Co de Phone Number [facility] Department [place] [address] * (ABNORMAL) Basic metabolic panel (05/18/2025 10:41 PM CDT) Pathologist [facility] Sodium 137 135 - 145 mmol/L Potassium, pl 4.1 3.3 - 4.9 mmol/L [facility] Chloride 99 97 - 110 mmol/L [facility] CO2 30 22 - 32 mmol/L [facility] Anion gap 8 2 - 15 mmol/L [facility] BUN 46(H) 6 - 25 mg/dL [facility] Creatinine 1.61(H) 0.80 - 1.30 mg/dL [facility] Glucose 122 70 - 199 mg/dL [facility] Comment: Interpretive Data Fasting glucose >/= 126 [...] 2022. Calcium 9.1 8.5 - 10.3 mg/dL [facility] Blood 05/18/2025 10:4 1 PM CDT 05/18/2025 11:10 PM CDT Bar Gamble MD LAB BLOOD ORDERABLES Final R esult [facility] [place] [address] * Oxyhemoglobin, pulmonary artery (05/18/2025 5:23 PM CDT) Pathologist [facility] Oxyhemoglobin, PA 52.2 % Comment: Interpretive Data No reference range established. Current interpretive data was last revised 2020. Blood 05/18/2025 5:23 PM CDT 05/18/2025 5:33 PM CDT Bar Gamble MD LAB BLOOD ORDERABLES Final R esult [facility] [place] [address] * (ABNORMAL) Hemoglobin total, pulmonary artery (05/18/2025 5:23 PM CDT) Hemoglobin total, PA 11.9(L) 13.0 - 17.5 g/dL Blood 05/18/2025 5:23 PM CDT 05/18/2025 5:33 PM CDT aBr Gamble MD LAB BLOOD ORDERABLES Final R esult Performing Organization Address [facility] Co de Phone Number [facility] [place] [address] * (ABNORMAL) eGFR (05/18/2025 5:23 PM CDT) [...] ORDERABLES Final R esult Performing Organization Address [facility] Co de Phone Number [facility] [place] [address] * Lactate, whole blood (05/18/2025 5:23 PM CDT) [facility] Lactate, bld 0.8 0.7 - 2.0 mmol/L Blood 05/18/2025 5:23 PM CDT 05/18/2025 5:33 PM CDT Bar Gamble MD LAB BLOOD ORDERABLES Final R esult Performing Organization Address [facility] Co de Phone Number [facility] [place] [address] * Magnesium (05/18/2025 5:23 PM CDT) [facility] Magnesium 2.3 1.4 - 2.5 mg/dL Blood 05/18/2025 5:23 PM CDT 05/18/2025 5:40 PM CDT Bar Gamble MD LAB BLOOD ORDERABLES Final R esult Performing Organization Address [facility] [place] [address] * (ABNORMAL) Basic metabolic panel (05/18/2025 5:23 PM CDT) [facility] Sodium 138 135 - 145 mmol/L Potassium, pl 3.9 3.3 - 4.9 mmol/L [facility] Chloride 98 97 - 110 mmol/L [facility] CO2 28 22 - 32 mmol/L [facility] Anion gap 12 2 - 15 mmol/L [facility] BUN 45(H) 6 - 25 mg/dL [facility] Creatinine 1.47(H) 0.80 - 1.30 mg/dL [facility] Glucose 129 70 - 199 mg/dL [facility] Comment: Interpretive Data Fasting glucose >/= 126 [...] 2022. Calcium 9.4 8.5 - 10.3 mg/dL [facility] Blood 05/18/2025 5:23 PM CDT 05/18/2025 5:40 PM CDT us Bar Gamble MD LAB BLOOD ORDERABLES Final R esult Performing Organization Address City/[facility]/ZIP Co de Phone Number [facility] [place] [address] * Oxyhemoglobin, pulmonary artery (05/18/2025 12:05 PM CDT) Pathologist [facility], [place] 58.3 % Comment: Interpretive Data No reference range established. Current interpretive data was last revised 2020. Blood 05/18/2025 12:0 5 PM CDT 05/18/2025 12:12 PM CDT us Bar Gamble MD LAB BLOOD ORDERABLES Final R esult [facility] [place] [address] * (ABNORMAL) Hemoglobin total, pulmonary artery (05/18/2025 12:05 PM CDT) Hemoglobin total, PA 11.0(L) 13.0 - 17.5 g/dL Blood 05/18/2025 12:0 5 PM CDT 05/18/2025 12:12 PM CDT us Bar Gamble MD LAB BLOOD ORDERABLES Final R esult Performing Organization Address [facility]/ZIP Co de Phone Number [facility] [place] [address] * Potassium, whole blood (05/18/2025 12:05 PM CDT) Pathologist [facility] Potassium, bld 4.0 3.3 - 4.9 mmol/L Blood 05/18/2025 12:0 5 PM CDT 05/18/2025 12:12 PM CDT us Zev Cowart MD PhD LAB BLOOD ORDERABLES Fi nal Result Performing Organization Address [facility] Co de Phone Number [facility] [place] [address] * Lactate, whole blood (05/18/2025 12:05 PM CDT) Pathologist [facility] Lactate, bld 1.3 0.7 - 2.0 mmol/L Blood 05/18/2025 12:0 5 PM CDT 05/18/2025 12:12 PM CDT Zev Cowart MD PhD LAB BLOOD ORDERABLES Fi nal Result Performing Organization Address City/[facility] Co de Phone Number [facility] [place] [address] * XR Chest 1 View (05/18/2025 8:40 AM CDT) Anatomical Region Laterality Modality Body, Chest N/A Computed Radiogr aphy 05/18/2025 9:28 PM CDT Impressions 05/18/2025 9:28 PM CDT A left internal jugular Packwood-Jayne catheter is present with tip overlying the [...] 12:26 PM IMPRESSION: A left internal jugular Packwood-Jayne catheter is present with tip overlying the [...] 5:59 AM CDT 05/18/2025 6:11 AM CDT Bar Gamble MD LAB BLOOD ORDERABLES Final R esult [facility] [place] [address] * (ABNORMAL) Hemoglobin total, pulmonary artery (05/18/2025 5:59 AM CDT) Hemoglobin total, PA 11.1(L) 13.0 - 17.5 g/dL Blood 05/18/2025 5:59 AM CDT 05/18/2025 6:11 AM CDT us Bar Gamble MD LAB BLOOD ORDERABLES Final R esult Performing Organization Address City/State/[facility] Co de Phone Number [facility] [place] [address] * (ABNORMAL) Potassium, whole blood (05/18/2025 5:59 AM CDT) Pathologist [facility] Potassium, bld 3.2(L) 3.3 - 4.9 mmol/L Blood 05/18/2025 5:59 AM CDT 05/18/2025 6:15 AM CDT us Bar Gamble MD LAB BLOOD ORDERABLES Final R esult Performing Organization Address City/[facility] Co de Phone Number [facility] [place] [address] * (ABNORMAL) eGFR (05/18/2025 5:59 AM CDT) Pathologist [facility] eGFR 53(L) >=60 mL/min/1. 73 m2 Comment: [...] ORDERABLES Final R esult Performing Organization Address [facility] Co de Phone Number [facility] of Laboratories [place], [place] [id number] * (ABNORMAL) Lactate, whole blood (05/18/2025 5:59 AM CDT) Lactate, bld 0.6(L) 0.7 - 2.0 mmol/L Blood 05/18/2025 5:59 AM CDT 05/18/2025 6:15 AM CDT us Bar Gamble MD LAB BLOOD ORDERABLES Final R esult Performing Organization Address [facility] Co de Phone Number [facility] [place] [address] * (ABNORMAL) aPTT (05/18/2025 5:59 AM CDT) aPTT 52(H) 28 - 38 sec Comment: Interpretive Data Heparin therapeutic range: 66.0 - 100.0 seconds. Range based on correlation with therapeutic heparin activity range of 0.3 - 0.7 Units/mL. Current interpretive data was last revised on 2023. Blood 05/18/2025 5:59 AM CDT 05/18/2025 6:18 AM CDT Narrative [facility] - 05/18/2025 6:27 AM CDT STAT PTT [...] NP LAB BLOOD ORDERABLES Final Re sult [facility] [place] [address] * (ABNORMAL) CBC without differential (05/18/2025 5:59 AM CDT) WBC 7.83 3.80 - 9.90 K/cumm Hgb 10.5(L) 13.0 - 17.5 g/dL [facility] Hct 32.3(L) 38.9 - 50.3 % [facility] Plt 199 150 - 400 K/cumm [facility] MPV 11.7 9.1 - 12.3 fL [facility] RBC 3.91(L) 4.30 - 5.80 M/cumm [facility] MCV 82.6 81.3 - 96.4 fL [facility] MCH 26.9(L) 27.1 - 33.3 pg [facility] MCHC 32.5 32.3 - 35.7 g/dL [facility] RDW CV 15.5(H) 11.1 - 14.9 % [facility] RDW SD 47.0 35.7 - 48.1 fL [facility] NRBC abs 0.00 0.00 - 0.01 K/cumm [facility] Blood 05/18/2025 5:59 AM CDT 05/18/2025 6:16 AM CDT Bar Gamble MD LAB BLOOD ORDERABLES Final R esult [facility] MAR[facility] [place] [address] * Magnesium (05/18/2025 5:59 AM CDT) Pathologist [facility] Magnesium 2.3 1.4 - 2.5 mg/dL Blood 05/18/2025 5:59 AM CDT 05/18/2025 6:16 AM CDT us Bar Gamble MD LAB BLOOD ORDERABLES Final R esult Performing Organization Address City/[facility]/ZIP Co de Phone Number [facility] [place] [address] * (ABNORMAL) Hepatic function panel (05/18/2025 5:59 AM CDT) [facility] Bilirubin, total 0.7 0.1 - 1.2 mg/dL Bilirubin, direct 0.3 0.1 - 0.3 mg/dL [facility] Protein, pl 6.2(L) 6.5 - 8.5 g/dL [facility] Albumin 3.9 3.5 - 5.0 g/dL [facility] Alk phos 266(H) 40 - 130 Units/L [facility] ALT 18 7 - 55 Units/L [facility] AST 20 10 - 50 Units/L [facility] Blood 05/18/2025 5:59 AM CDT 05/18/2025 6:16 AM CDT us Bar Gamble MD LAB BLOOD ORDERABLES Final R esult DULCE MARIA [facility] Department [place] [address] * (ABNORMAL) Basic metabolic panel (05/18/2025 5:59 AM CDT) Pathologist [facility] Sodium 138 135 - 145 mmol/L Potassium, pl 3.2(L) 3.3 - 4.9 mmol/L [facility] Chloride 97 97 - 110 mmol/L [facility] CO2 31 22 - 32 mmol/L [facility] Anion gap 10 2 - 15 mmol/L [facility] BUN 41(H) 6 - 25 mg/dL [facility] Creatinine 1.48(H) 0.80 - 1.30 mg/dL [facility] Glucose 118 70 - 199 mg/dL [facility] Comment: Interpretive Data Fasting glucose >/= 126 [...] 2022. Calcium 9.4 8.5 - 10.3 mg/dL [facility] Blood 05/18/2025 5:59 AM CDT 05/18/2025 6:16 AM CDT us Bar Gamble MD LAB BLOOD ORDERABLES Final R esult [facility] [place] [address] * Antibody identification (05/17/2025 11:01 PM CDT) Antibody ID 1 Anti-CD38 Comment:Panreactive -CD38 on reagent RBCs reacting with anti-CD38 therapy. DTT treatment removes cell surface CD38 and allows detection of common clinically significant antibodies except those against Dilma antigens. TRANSFUSION 2015;[id number] Blood 05/17/2025 11:0 1 PM CDT 05/17/2025 11:01 PM CDT us Libia Suarez PROGRAM SUPPORT CLERK LAB BLOOD BANK TEST ORDERABLE S Final Result [facility] [place] [address] * Potassium, whole blood (05/17/2025 10:00 PM CDT) Potassium, bld 3.9 3.3 - 4.9 mmol/L Blood 05/17/2025 10:0 0 PM CDT 05/17/2025 10:08 PM CDT us Bar Gamble MD LAB BLOOD ORDERABLES Final R esult Performing Organization Address [facility] de Phone Number [facility] [place] [address] * Oxyhemoglobin, pulmonary artery (05/17/2025 9:59 PM CDT) Oxyhemoglobin, PA 50.2 % Comment: Interpretive Data No reference range established. Current interpretive data was last revised 2020. Blood 05/17/2025 9:59 PM CDT 05/17/2025 10:07 PM CDT us Bar Gamble MD LAB BLOOD ORDERABLES Final R esult Performing Organization Address [facility] Co de Phone Number [facility] [place] [address] * (ABNORMAL) Hemoglobin total, pulmonary artery (05/17/2025 9:59 PM CDT) Hemoglobin total, PA 12.1(L) 13.0 - 17.5 g/dL Blood 05/17/2025 9:59 PM CDT 05/17/2025 10:07 PM CDT Bar Gamble MD LAB BLOOD ORDERABLES Final R esult Performing Organization Address [facility] Co de Phone Number [facility] [place] [address] * Lactate, whole blood (05/17/2025 9:59 PM CDT) Lactate, bld 1.4 0.7 - 2.0 mmol/L Blood 05/17/2025 9:59 PM CDT 05/17/2025 10:07 PM CDT us Bar Gamble MD LAB BLOOD ORDERABLES Final R esult Performing Organization Address [facility] Co de Phone Number [facility] [place] [address] * (ABNORMAL) Type and screen (05/17/2025 9:59 PM CDT) ABO Rh O Positive Poppy, indirect Positive(A) [facility] Blood 05/17/2025 9:59 PM CDT 05/17/2025 10:11 PM CDT Narrative [facility] - 05/17/2025 11:01 PM CDT Has the patient had Daratumumab or Isatuximab in the past 6 months?->Unknown Libia Suarez NP LAB BLOOD BANK TEST ORDERABLE S Final Result Performing Organization Address [facility] Co de Phone Number [facility] [place] [address] * Oxyhemoglobin, pulmonary artery (05/17/2025 4:08 PM CDT) Oxyhemoglobin, PA 54.6 % Comment: Interpretive Data No reference range established. Current interpretive data was last revised 2020. Blood 05/17/2025 4:08 PM CDT 05/17/2025 4:25 PM CDT us Bar Gamble MD LAB BLOOD ORDERABLES Final R esult DUL[facility] MAR[facility] [place] [address] * (ABNORMAL) Hemoglobin total, pulmonary artery (05/17/2025 4:08 PM CDT) Hemoglobin total, PA 10.7(L) 13.0 - 17.5 g/dL Blood 05/17/2025 4:08 PM CDT 05/17/2025 4:25 PM CDT us Bar Gamble MD LAB BLOOD ORDERABLES Final R esult Performing Organization Address [facility] Co de Phone Number [facility] [place] [address] * (ABNORMAL) eGFR (05/17/2025 4:08 PM CDT) [...] ORDERABLES Final R esult Performing Organization Address [facility]/ZIP Co de Phone Number DULCE MARIA ARANDA [facility] [place] [address] * Lactate, whole blood (05/17/2025 4:08 PM CDT) Lactate, bld 1.3 0.7 - 2.0 mmol/L Blood 05/17/2025 4:08 PM CDT 05/17/2025 4:25 PM CDT us Zev Cowart MD PhD LAB BLOOD ORDERABLES Fi nal Result Performing Organization Address [facility] Co de Phone Number [facility] [place] [address] * (ABNORMAL) aPTT (05/17/2025 4:08 PM CDT) Pathologist [facility] aPTT 66(H) 28 - 38 sec Comment: Interpretive Data Heparin therapeutic range: 66.0 - 100.0 seconds. Range based on correlation with therapeutic heparin activity range of 0.3 - 0.7 Units/mL. Current interpretive data was last revised on 2023. Blood 05/17/2025 4:08 PM CDT 05/17/2025 4:29 PM CDT Narrative [facility] - 05/17/2025 4:52 PM CDT STAT PTT [...] peripherally (not from CVC). us Libia Suarez PROGRAM SUPPORT CLERK LAB BLOOD ORDERABLES Final Re sult Performing Organization Address City/[facility]/ZIP Co de Phone Number [facility] [place] [address] * Magnesium (05/17/2025 4:08 PM CDT) Pathologist [facility] Magnesium 2.2 1.4 - 2.5 mg/dL Blood 05/17/2025 4:08 PM CDT 05/17/2025 4:31 PM CDT Bar Gamble MD LAB BLOOD ORDERABLES Final R esult Performing Organization Address [facility] Co de Phone Number [facility] [place] [address] * (ABNORMAL) Basic metabolic panel (05/17/2025 4:08 PM CDT) [facility] Sodium 139 135 - 145 mmol/L Potassium, pl 4.4 3.3 - 4.9 mmol/L [facility] Chloride 100 97 - 110 mmol/L [facility] CO2 28 22 - 32 mmol/L [facility] Anion gap 11 2 - 15 mmol/L [facility] BUN 38(H) 6 - 25 mg/dL [facility] Creatinine 1.47(H) 0.80 - 1.30 mg/dL [facility] Glucose 162 70 - 199 mg/dL [facility] Comment: Interpretive Data Fasting glucose >/= 126 [...] 2022. Calcium 9.3 8.5 - 10.3 mg/dL [facility] Blood 05/17/2025 4:08 PM CDT 05/17/2025 4:31 PM CDT Bar Gamble MD LAB BLOOD ORDERABLES Final R esult [facility] [place] [address] * XR Chest 1 View (05/17/2025 12:39 PM CDT) Anatomical Region Laterality Modality Body, Chest N/A Computed Radiogr aphy 05/17/2025 1:37 PM CDT Impressions 05/17/2025 1:48 PM CDT Comparison with 05/17/2025 4:41 AM. Right internal jugular Packwood-Jayne catheter with tip overlying the distal right [...] with 05/17/2025 4:41 AM. Right internal jugular Packwood-Jayne catheter with tip overlying the distal right [...] ORDERABLES Final R esult Performing Organization Address [facility] Co de Phone Number [facility] [place] [address] * (ABNORMAL) Hemoglobin total, pulmonary artery (05/17/2025 12:34 PM CDT) Hemoglobin total, PA 10.6(L) 13.0 - 17.5 g/dL Blood 05/17/2025 12:3 4 PM CDT 05/17/2025 12:48 PM CDT us Bar Gamble MD LAB BLOOD ORDERABLES Final R esult Performing Organization Address [facility] Co de Phone Number [facility] [place] [address] * (ABNORMAL) Lactate, whole blood (05/17/2025 12:34 PM CDT) Lactate, bld 0.6(L) 0.7 - 2.0 mmol/L Blood 05/17/2025 12:3 4 PM CDT 05/17/2025 12:48 PM CDT us Bar Gamble MD LAB BLOOD ORDERABLES Final R esult Performing Organization Address City/[facility] Co de Phone Number [facility] [place] [address] * RIGHT HEART CATH (05/17/2025 10:14 AM [...] right heart catheterization and replacement of leave-in Packwood. Procedure: 1) Consent was obtained 2) The patient was transported to the catheterization bay, prepped, and draped in the usual sterile fashion. 3) I provided direct [id number] monitoring of conscious sedation which was administered by an independent trained nurse using Fentanyl 12.5 mcg and Midazolam 0.5 mg. Sedation time 32 min. Local anesthesia with 1% lidocaine was used. 4) Venous access was obtained in theLeft Internal Jugular vein using modified Seldinger technique and micropuncture approach. A 8 Pakistani sheath was secured into place. 5) Right heart catheterization was performed with a 7.5 Pakistani VIP Packwood Jayne catheter. The catheter was advanced sequentially [...] output at rest on dobutamine 2.5mcg/kg/min. Vannesa Gibbs MD District Sales Coordinator Advanced Heart Failure/Cardiac Transplant us Romelia Lerma MD CV CARDIAC CATH PROCEDUR ES Final Result * (ABNORMAL) POCT oxyhemoglobin (05/17/2025 10:07 AM CDT) ESL TUTOR Oxyhemoglobin 63.0(L) >=65.0 % ESL TUTOR Hemoglobin 10.7(L) 13.0 - 17.5 g/dL [facility] ESL TUTOR O2 content 9.3(L) 15.0 - 22.0 Vol % [facility] Anatomic Site aPOC Pulm Artery [facility] Blood 05/17/2025 10:0 7 AM CDT 05/17/2025 10:07 AM CDT us Zev Cowart MD PhD LAB POCT ORDERABLES - D EVICE Final Result [facility] [place] [address] * (ABNORMAL) POCT oxyhemoglobin (05/17/2025 10:06 AM CDT) ESL TUTOR Oxyhemoglobin 62.6(L) >=65.0 % ESL TUTOR Hemoglobin 10.3(L) 13.0 - 17.5 g/dL [facility] ESL TUTOR O2 content 9.0(L) 15.0 - 22.0 Vol % [facility] Anatomic Site aPOC Pulm Artery [facility] Blood 05/17/2025 10:0 6 AM CDT 05/17/2025 10:06 AM CDT us Zev Cowart MD PhD LAB POCT ORDERABLES - D EVICE Final Result [facility] Department of [place] [address] * XR Chest 1 View (05/17/2025 5:12 AM CDT) Anatomical Region Laterality Modality Body, Chest N/A Digital Radiogra phy 05/17/2025 10:5 2 AM CDT Impressions 05/17/2025 2:10 PM CDT Comparison with 05/16/2025. Right internal jugular Packwood-Jayne catheter is in unchanged position with tip [...] IMPRESSION: Comparison with 05/16/2025. Right internal jugular Packwood-Jayne catheter is in unchanged position with tip [...] ORDERABLES Final R esult Performing Organization Address [facility] Co de Phone Number [facility] [place] [address] * (ABNORMAL) Hemoglobin total, pulmonary artery (05/17/2025 3:59 AM CDT) Hemoglobin total, PA 11.3(L) 13.0 - 17.5 g/dL Blood 05/17/2025 3:59 AM CDT 05/17/2025 4:22 AM CDT Bar Gamble MD LAB BLOOD ORDERABLES Final R esult [facility] [place] [address] * Potassium, whole blood (05/17/2025 3:59 AM CDT) Potassium, bld 3.9 3.3 - 4.9 mmol/L Blood 05/17/2025 3:5 9 AM CDT 05/17/2025 4:22 AM CDT Zev Cowart MD PhD LAB BLOOD ORDERABLES Fi nal Result Performing Organization Address [facility] Co de Phone Number [facility] [place] [address] * (ABNORMAL) eGFR (05/17/2025 3:59 AM CDT) [...] 3:59 AM CDT 05/17/2025 4:28 AM CDT Bar Gamble MD LAB BLOOD ORDERABLES Final R esult Performing Organization Address City/[facility]/ZIP Co de Phone Number DULCE MARIA [facility] [place] [address] * Lactate, whole blood (05/17/2025 3:59 AM CDT) Lactate, bld 0.8 0.7 - 2.0 mmol/L Blood 05/17/2025 3:59 AM CDT 05/17/2025 4:22 AM CDT Zev Cowart MD PhD LAB BLOOD ORDERABLES Fi nal Result Performing Organization Address [facility] Co de Phone Number [facility] [place] [address] * (ABNORMAL) aPTT (05/17/2025 3:59 AM CDT) [facility] aPTT 61(H) 28 - 38 sec Comment: Interpretive Data Heparin therapeutic range: 66.0 - 100.0 seconds. Range based on correlation with therapeutic heparin activity range of 0.3 - 0.7 Units/mL. Current interpretive data was last revised on 2023. Blood 05/17/2025 3:59 AM CDT 05/17/2025 4:27 AM CDT Narrative [facility] - 05/17/2025 4:50 AM CDT STAT PTT [...] drawn peripherally (not from CVC). Libia Suarez PROGRAM SUPPORT CLERK LAB BLOOD ORDERABLES Final Re sult Performing Organization Address [facility] Co de Phone Number [facility] [place] [address] * (ABNORMAL) CBC without differential (05/17/2025 3:59 AM CDT) [facility] WBC 7.59 3.80 - 9.90 K/cumm Hgb 10.5(L) 13.0 - 17.5 g/dL [facility] Hct 32.8(L) 38.9 - 50.3 % [facility] Plt 192 150 - 400 K/cumm [facility] MPV 11.5 9.1 - 12.3 fL [facility] RBC 3.88(L) 4.30 - 5.80 M/cumm [facility] MCV 84.5 81.3 - 96.4 fL [facility] MCH 27.1 27.1 - 33.3 pg [facility] MCHC 32.0(L) 32.3 - 35.7 g/dL [facility] RDW CV 15.6(H) 11.1 - 14.9 % [facility] RDW SD 47.8 35.7 - 48.1 fL [facility] NRBC abs 0.00 0.00 - 0.01 K/cumm [facility] Blood 05/17/2025 3:59 AM CDT 05/17/2025 4:28 AM CDT us Bar Gamble MD LAB BLOOD ORDERABLES Final R esult [facility] [place] [address] * Phosphorus (05/17/2025 3:59 AM CDT) Phosphorus, pl 3.4 2.3 - 4.5 mg/dL Blood 05/17/2025 3:59 AM CDT 05/17/2025 4:28 AM CDT us Zev Cowart MD PhD LAB BLOOD ORDERABLES Fi nal Result [facility] [place] [address] * Magnesium (05/17/2025 3:59 AM CDT) Magnesium 2.1 1.4 - 2.5 mg/dL Blood 05/17/2025 3:59 AM CDT 05/17/2025 4:28 AM CDT us Bar Gamble MD LAB BLOOD ORDERABLES Final R esult Performing Organization Address City/[facility]/ZIP Co de Phone Number [facility] [place] [address] * (ABNORMAL) Hepatic function panel (05/17/2025 3:59 AM CDT) Bilirubin, total 0.7 0.1 - 1.2 mg/dL Bilirubin, direct 0.3 0.1 - 0.3 mg/dL [facility] Protein, pl 6.3(L) 6.5 - 8.5 g/dL [facility] Albumin 3.8 3.5 - 5.0 g/dL [facility] Alk phos 273(H) 40 - 130 Units/L [facility] ALT 19 7 - 55 Units/L [facility] AST 22 10 - 50 Units/L [facility] Blood 05/17/2025 3:59 AM CDT 05/17/2025 4:28 AM CDT us Bar Gamble MD LAB BLOOD ORDERABLES Final R esult Performing Organization Address City/[facility] Co de Phone Number [facility] [place] [address] * (ABNORMAL) Basic metabolic panel (05/17/2025 3:59 AM CDT) Sodium 140 135 - 145 mmol/L Potassium, pl 4.2 3.3 - 4.9 mmol/L [facility] Chloride 103 97 - 110 mmol/L [facility] CO2 27 22 - 32 mmol/L [facility] Anion gap 10 2 - 15 mmol/L [facility] BUN 39(H) 6 - 25 mg/dL [facility] Creatinine 1.41(H) 0.80 - 1.30 mg/dL [facility] Glucose 119 70 - 199 mg/dL [facility] Comment: Interpretive Data Fasting glucose >/= 126 [...] 2022. Calcium 9.3 8.5 - 10.3 mg/dL [facility] Blood 05/17/2025 3:59 AM CDT 05/17/2025 4:28 AM CDT Bar Gamble MD LAB BLOOD ORDERABLES Final R esult Performing Organization Address City/[facility] Co de Phone Number [facility] [place] [address] * Oxyhemoglobin, pulmonary artery (05/16/2025 9:47 PM CDT) Oxyhemoglobin, PA 55.0 % Comment: Interpretive Data No reference range established. Current interpretive data was last revised 2020. Blood 05/16/2025 9:47 PM CDT 05/16/2025 9:56 PM CDT Bar Gamble MD LAB BLOOD ORDERABLES Final R esult [facility] [place] [address] * (ABNORMAL) Hemoglobin total, pulmonary artery (05/16/2025 9:47 PM CDT) Hemoglobin total, PA 11.6(L) 13.0 - 17.5 g/dL Blood 05/16/2025 9:47 PM CDT 05/16/2025 9:56 PM CDT Bar Gamble MD LAB BLOOD ORDERABLES Final R esult Performing Organization Address City/[facility]/ZIP Co de Phone Number [facility] [place] [address] * Potassium, whole blood (05/16/2025 9:47 PM CDT) Potassium, bld 3.4 3.3 - 4.9 mmol/L Blood 05/16/2025 9:47 PM CDT 05/16/2025 9:56 PM CDT Bar Gamble MD LAB BLOOD ORDERABLES Final R esult Performing Organization Address [facility] Co de Phone Number [facility] [place] [address] * Lactate, whole blood (05/16/2025 9:47 PM CDT) Lactate, bld 0.8 0.7 - 2.0 mmol/L Blood 05/16/2025 9:47 PM CDT 05/16/2025 9:56 PM CDT us Bar Gamble MD LAB BLOOD ORDERABLES Final R esult Performing Organization Address [facility] Co de Phone Number [facility] [place] [employer] [place] [address] * Magnesium (05/16/2025 9:47 PM CDT) Magnesium 2.1 1.4 - 2.5 mg/dL Blood 05/16/2025 9:47 PM CDT 05/16/2025 10:02 PM CDT us Bar Gamble MD LAB BLOOD ORDERABLES Final R esult Performing Organization Address City/[facility]/ZIP Co de Phone Number [facility] [place] [address] * Oxyhemoglobin, pulmonary artery (05/16/2025 4:21 PM CDT) Oxyhemoglobin, PA 59.1 % Comment: Interpretive Data No reference range established. Current interpretive data was last revised 2020. Blood 05/16/2025 4:21 PM CDT 05/16/2025 4:39 PM CDT us Bar Gamble MD LAB BLOOD ORDERABLES Final R esult [facility] [place] [address] * (ABNORMAL) Hemoglobin total, pulmonary artery (05/16/2025 4:21 PM CDT) Hemoglobin total, PA 11.6(L) 13.0 - 17.5 g/dL Blood 05/16/2025 4:21 PM CDT 05/16/2025 4:39 PM CDT us Bar Gamble MD LAB BLOOD ORDERABLES Final R esult [facility] [place] [address] * (ABNORMAL) eGFR (05/16/2025 4:21 PM CDT) eGFR 54(L) >=60 mL/min/1. 73 [...] PM CDT 05/16/2025 4:50 PM CDT us Bra Gamble MD LAB BLOOD ORDERABLES Final R esult Performing Organization Address [facility] Co de Phone Number [facility] [place] [address] * (ABNORMAL) Lactate, whole blood (05/16/2025 4:21 PM CDT) Lactate, bld 0.6(L) 0.7 - 2.0 mmol/L Blood 05/16/2025 4:21 PM CDT 05/16/2025 4:39 PM CDT Bar Gamble MD LAB BLOOD ORDERABLES Final R esult Performing Organization Address [facility] Co de Phone Number [facility] [place] [address] * Magnesium (05/16/2025 4:21 PM CDT) Magnesium 2.2 1.4 - 2.5 mg/dL Blood 05/16/2025 4:21 PM CDT 05/16/2025 4:50 PM CDT us Bar Gamble MD LAB BLOOD ORDERABLES Final R esult Performing Organization Address [facility] Co de Phone Number [facility] [place] [address] * (ABNORMAL) Basic metabolic panel (05/16/2025 4:21 PM CDT) Sodium 140 135 - 145 mmol/L Potassium, pl 4.0 3.3 - 4.9 mmol/L [facility] Chloride 101 97 - 110 mmol/L [facility] CO2 27 22 - 32 mmol/L [facility] Anion gap 12 2 - 15 mmol/L [facility] BUN 41(H) 6 - 25 mg/dL [facility] Creatinine 1.46(H) 0.80 - 1.30 mg/dL [facility] Glucose 119 70 - 199 mg/dL [facility] Comment: Interpretive Data Fasting glucose >/= 126 [...] 2022. Calcium 9.6 8.5 - 10.3 mg/dL [facility] Blood 05/16/2025 4:21 PM CDT 05/16/2025 4:50 PM CDT us Bar Gamble MD LAB BLOOD ORDERABLES Final R esult [facility] [place] [address] * Oxyhemoglobin, pulmonary artery (05/16/2025 8:10 AM CDT) Oxyhemoglobin, PA 69.1 % Comment: Interpretive Data No reference range established. Current interpretive data was last revised 2020. Blood 05/16/2025 8:10 AM CDT 05/16/2025 8:24 AM CDT us Bar Gamble MD LAB BLOOD ORDERABLES Final R esult Performing Organization Address [facility] Co de Phone Number [facility] [place] [address] * (ABNORMAL) Hemoglobin total, pulmonary artery (05/16/2025 8:10 AM CDT) Hemoglobin total, PA 11.1(L) 13.0 - 17.5 g/dL Blood 05/16/2025 8:10 AM CDT 05/16/2025 8:24 AM CDT us Bar Gamble MD LAB BLOOD ORDERABLES Final R esult Performing Organization Address [facility] Co de Phone Number [facility] [place] [address] * Lactate, whole blood (05/16/2025 8:10 AM CDT) Lactate, bld 0.9 0.7 - 2.0 mmol/L Blood 05/16/2025 8:10 AM CDT 05/16/2025 8:24 AM CDT us Bar Gamble MD LAB BLOOD ORDERABLES Final R esult Performing Organization Address [facility] Co de Phone Number [facility] [place] [address] * (ABNORMAL) aPTT (05/16/2025 8:10 AM CDT) aPTT 63(H) 28 - 38 sec Comment: Interpretive Data Heparin therapeutic range: 66.0 - 100.0 seconds. Range based on correlation with therapeutic heparin activity range of 0.3 - 0.7 Units/mL. Current interpretive data was last revised on 2023. Blood 05/16/2025 8:10 AM CDT 05/16/2025 8:37 AM CDT Narrative [facility] - 05/16/2025 8:45 AM CDT STAT PTT [...] ORDERABLES Final Re sult Performing Organization Address [facility] Co de Phone Number [facility] [place] [address] * Oxyhemoglobin, pulmonary artery (05/16/2025 5:07 AM CDT) Oxyhemoglobin, PA 64.7 % Comment: Interpretive Data No reference range established. Current interpretive data was last revised 2020. Blood 05/16/2025 5:07 AM CDT 05/16/2025 5:19 AM CDT us Bar Gamble MD LAB BLOOD ORDERABLES Final R esult Performing Organization Address City/[facility]/ZIP Co de Phone Number [facility] [place] [address] * (ABNORMAL) Hemoglobin total, pulmonary artery (05/16/2025 5:07 AM CDT) Hemoglobin total, PA 10.9(L) 13.0 - 17.5 g/dL Blood 05/16/2025 5:07 AM CDT 05/16/2025 5:19 AM CDT Bar Gamble MD LAB BLOOD ORDERABLES Final R esult Performing Organization Address [facility] Co de Phone Number [facility] [place] [address] * (ABNORMAL) eGFR (05/16/2025 5:07 AM CDT) [...] ORDERABLES Final R esult Performing Organization Address [facility] Co de Phone Number DULCE MARIA [facility] [place] [address] * (ABNORMAL) Lactate, whole blood (05/16/2025 5:07 AM CDT) Lactate, bld 0.6(L) 0.7 - 2.0 mmol/L Blood 05/16/2025 5:07 AM CDT 05/16/2025 5:19 AM CDT us Bar Gamble MD LAB BLOOD ORDERABLES Final R esult Performing Organization Address [facility] de Phone Number [facility] [place] [place] [address] * (ABNORMAL) CBC without differential (05/16/2025 5:07 AM CDT) WBC 10.14(H) 3.80 - 9.90 K/cumm Hgb 10.3(L) 13.0 - 17.5 g/dL [facility] Hct 31.5(L) 38.9 - 50.3 % [facility] Plt 186 150 - 400 K/cumm [facility] MPV 11.8 9.1 - 12.3 fL [facility] RBC 3.77(L) 4.30 - 5.80 M/cumm [facility] MCV 83.6 81.3 - 96.4 fL [facility] MCH 27.3 27.1 - 33.3 pg [facility] MCHC 32.7 32.3 - 35.7 g/dL [facility] RDW CV 15.5(H) 11.1 - 14.9 % [facility] RDW SD 47.5 35.7 - 48.1 fL [facility] NRBC abs 0.00 0.00 - 0.01 K/cumm [facility] Blood 05/16/2025 5:07 AM CDT 05/16/2025 5:28 AM CDT us Bar Gamble MD LAB BLOOD ORDERABLES Final R esult [facility] [place] [address] * Magnesium (05/16/2025 5:07 AM CDT) Pathologist [facility] Magnesium 2.1 1.4 - 2.5 mg/dL Blood 05/16/2025 5:07 AM CDT 05/16/2025 5:28 AM CDT Bar Gamble MD LAB BLOOD ORDERABLES Final R esult Performing Organization Address City/[facility] Co de Phone Number [facility] [place] [address] * (ABNORMAL) Hepatic function panel (05/16/2025 5:07 AM CDT) Pathologist [facility] Bilirubin, total 0.5 0.1 - 1.2 mg/dL Bilirubin, direct 0.3 0.1 - 0.3 mg/dL [facility] Protein, pl 6.1(L) 6.5 - 8.5 g/dL [facility] Albumin 3.7 3.5 - 5.0 g/dL [facility] Alk phos 275(H) 40 - 130 Units/L [facility] ALT 19 7 - 55 Units/L [facility] AST 22 10 - 50 Units/L [facility] Blood 05/16/2025 5:07 AM CDT 05/16/2025 5:28 AM CDT Bar Gamble MD LAB BLOOD ORDERABLES Final R esult Performing Organization Address City/[facility] Co de Phone Number [facility] [place] [address] * (ABNORMAL) Basic metabolic panel (05/16/2025 5:07 AM CDT) Pathologist [facility] Sodium 139 135 - 145 mmol/L Potassium, pl 3.2(L) 3.3 - 4.9 mmol/L [facility] Chloride 102 97 - 110 mmol/L [facility] CO2 27 22 - 32 mmol/L [facility] Anion gap 10 2 - 15 mmol/L [facility] BUN 45(H) 6 - 25 mg/dL [facility] Creatinine 1.51(H) 0.80 - 1.30 mg/dL [facility] Glucose 116 70 - 199 mg/dL [facility] Comment: Interpretive Data Fasting glucose >/= 126 [...] 2022. Calcium 8.9 8.5 - 10.3 mg/dL [facility] Blood 05/16/2025 5:07 AM CDT 05/16/2025 5:28 AM CDT us Bar Gamble MD LAB BLOOD ORDERABLES Final R esult [facility] [place] [address] * XR Chest 1 View (05/16/2025 4:51 AM CDT) Anatomical Region Laterality Modality Body, Chest N/A Computed Radiogr aphy 05/16/2025 10:4 6 AM CDT Impressions 05/16/2025 8:22 PM CDT Comparison with 05/15/2025. Right internal jugular Packwood-Jayne catheter is in unchanged position with tip [...] IMPRESSION: Comparison with 05/15/2025. Right internal jugular Packwood-Jayne catheter is in unchanged position with tip [...] Electronically signed by: Dmitry Armas MD, PHD Bar Gamble MD IMG XR PROCEDURES Final Resu lt * Oxyhemoglobin, pulmonary artery (05/15/2025 11:44 PM CDT) Pathologist [facility] Oxyhemoglobin, PA 55.3 % Comment: Interpretive Data No reference range established. Current interpretive data was last revised 2020. Blood 05/15/2025 11:4 4 PM CDT 05/15/2025 11:53 PM CDT us Bar Gamble MD LAB BLOOD ORDERABLES Final R esult DULCE MARIA [facility] [place] [address] * (ABNORMAL) Hemoglobin total, pulmonary artery (05/15/2025 11:44 PM CDT) [facility] Hemoglobin total, PA 11.8(L) 13.0 - 17.5 g/dL Blood 05/15/2025 11:4 4 PM CDT 05/15/2025 11:53 PM CDT Bar Gamble MD LAB BLOOD ORDERABLES Final R esult DULCE MARIA [facility] [place] [address] * Lactate, whole blood (05/15/2025 11:44 PM CDT) Lactate, bld 0.8 0.7 - 2.0 mmol/L Blood 05/15/2025 11:4 4 PM CDT 05/15/2025 11:53 PM CDT Bar Gamble MD LAB BLOOD ORDERABLES Final R esult Performing Organization Address [facility] Co de Phone Number [facility] [place] [address] * Oxyhemoglobin, pulmonary artery (05/15/2025 5:11 PM CDT) Pathologist [facility] Oxyhemoglobin, PA 55.6 % Comment: Interpretive Data No reference range established. Current interpretive data was last revised 2020. Blood 05/15/2025 5:11 PM CDT 05/15/2025 5:26 PM CDT us Bar Gamble MD LAB BLOOD ORDERABLES Final R esult Performing Organization Address [facility] Co de Phone Number [facility] [place] [address] * (ABNORMAL) Hemoglobin total, pulmonary artery (05/15/2025 5:11 PM CDT) Pathologist [facility] Hemoglobin total, PA 11.5(L) 13.0 - 17.5 g/dL Blood 05/15/2025 5:11 PM CDT 05/15/2025 5:26 PM CDT Bar Gamble MD LAB BLOOD ORDERABLES Final R esult Performing Organization Address City/[facility] Co de Phone Number [facility] [place] [address] * (ABNORMAL) eGFR (05/15/2025 5:11 PM CDT) Pathologist [facility] eGFR 51(L) >=60 mL/min/1. 73 m2 Comment: [...] MD LAB BLOOD ORDERABLES Final R esult [facility] Department of [employer] [place], [place] [id number] * Lactate, whole blood (05/15/2025 5:11 PM CDT) Lactate, bld 1.0 0.7 - 2.0 mmol/L Blood 05/15/2025 5:11 PM CDT 05/15/2025 5:26 PM CDT us Bar Gamble MD LAB BLOOD ORDERABLES Final R esult DULCE MARIA [facility] [place] [address] * Magnesium (05/15/2025 5:11 PM CDT) Magnesium 2.1 1.4 - 2.5 mg/dL Blood 05/15/2025 5:11 PM CDT 05/15/2025 5:34 PM CDT Bar Gamble MD LAB BLOOD ORDERABLES Final R esult Performing Organization Address City/[facility]/ZIP Co de Phone Number [facility] [place] [address] * (ABNORMAL) Basic metabolic panel (05/15/2025 5:11 PM CDT) [facility] Sodium 139 135 - 145 mmol/L Potassium, pl 3.7 3.3 - 4.9 mmol/L [facility] Chloride 102 97 - 110 mmol/L [facility] CO2 27 22 - 32 mmol/L [facility] Anion gap 10 2 - 15 mmol/L [facility] BUN 43(H) 6 - 25 mg/dL [facility] Creatinine 1.54(H) 0.80 - 1.30 mg/dL [facility] Glucose 138 70 - 199 mg/dL [facility] Comment: Interpretive Data Fasting glucose >/= 126 [...] 2022. Calcium 9.0 8.5 - 10.3 mg/dL [facility] Blood 05/15/2025 5:11 PM CDT 05/15/2025 5:34 PM CDT Bar Gamble MD LAB BLOOD ORDERABLES Final R esult Performing Organization Address [facility]/ZIP Co de Phone Number [facility] [place] [address] * Oxyhemoglobin, pulmonary artery (05/15/2025 11:23 AM CDT) Oxyhemoglobin, PA 55.8 % Comment: Interpretive Data No reference range established. Current interpretive data was last revised 2020. Blood 05/15/2025 11:2 3 AM CDT 05/15/2025 11:37 AM CDT us Bar Gamble MD LAB BLOOD ORDERABLES Final R esult Performing Organization Address City/[facility] Co de Phone Number [facility] [place] [address] * (ABNORMAL) Hemoglobin total, pulmonary artery (05/15/2025 11:23 AM CDT) Hemoglobin total, PA 11.2(L) 13.0 - 17.5 g/dL Blood 05/15/2025 11:2 3 AM CDT 05/15/2025 11:37 AM CDT us Bar Gamble MD LAB BLOOD ORDERABLES Final R esult Performing Organization Address [facility] Co de Phone Number [facility] [place] [address] * Lactate, whole blood (05/15/2025 11:23 AM CDT) Lactate, bld 1.2 0.7 - 2.0 mmol/L Blood 05/15/2025 11:2 3 AM CDT 05/15/2025 11:37 AM CDT us Bar Gamble MD LAB BLOOD ORDERABLES Final R esult Performing Organization Address City/[facility] Co de Phone Number [facility] [place] [address] * XR Chest 1 View (05/15/2025 5:05 AM CDT) Anatomical Region Laterality Modality Body, Chest N/A Digital Radiogra phy 05/15/2025 10:4 8 AM CDT Impressions 05/15/2025 11:08 AM CDT Comparison with 05/14/2025. Right internal jugular Packwood-Jayne catheter is in unchanged position with tip [...] IMPRESSION: Comparison with 05/14/2025. Right internal jugular Packwood-Jayne catheter is in unchanged position with tip [...] it. Electronically signed by: Lorenzo Weir M.D. Bar Gamble MD IMG XR PROCEDURES Final Resu lt * Oxyhemoglobin, pulmonary artery (05/15/2025 5:03 AM CDT) Oxyhemoglobin, PA 53.5 % Comment: Interpretive Data No reference range established. Current interpretive data was last revised 2020. Blood 05/15/2025 5:03 AM CDT 05/15/2025 5:25 AM CDT us Bar Gamble MD LAB BLOOD ORDERABLES Final R esult Performing Organization Address [facility] Co de Phone Number [facility] [place] [employer] [place] [address] * (ABNORMAL) Hemoglobin total, pulmonary artery (05/15/2025 5:03 AM CDT) Hemoglobin total, PA 11.5(L) 13.0 - 17.5 g/dL Blood 05/15/2025 5:03 AM CDT 05/15/2025 5:25 AM CDT us Bar Gamble MD LAB BLOOD ORDERABLES Final R esult Performing Organization Address [facility] de Phone Number [facility] [place] [address] * Erythropoietin (05/15/2025 5:03 AM CDT) Erythropoietin 16.7 2.6 - 18.5 mIUnits/mL [facility] Comment: Test Performed by: [facility] [address] [place] [address] Junior Engineer: Milagros Henriquez Ph.D.; CLIA# [id number] Blood 05/15/2025 5:03 AM CDT 05/15/2025 5:25 AM CDT us Zev Cowart MD PhD LAB BLOOD ORDERABLES Fi nal Result Performing Organization Address [facility] Co de Phone Number [facility] [place] [address] [facility] * Lactate, whole blood (05/15/2025 5:03 AM CDT) Lactate, bld 0.9 0.7 - 2.0 mmol/L Blood 05/15/2025 5:03 AM CDT 05/15/2025 5:25 AM CDT us Bar Gamble MD LAB BLOOD ORDERABLES Final R esult [facility] [place] [address] * (ABNORMAL) aPTT (05/15/2025 5:03 AM CDT) Pathologist [facility] aPTT 60(H) 28 - 38 sec Comment: Interpretive Data Heparin therapeutic range: 66.0 - 100.0 seconds. Range based on correlation with therapeutic heparin activity range of 0.3 - 0.7 Units/mL. Current interpretive data was last revised on 2023. Blood 05/15/2025 5:03 AM CDT 05/15/2025 5:38 AM CDT Narrative [employer] [facility] - 05/15/2025 5:49 AM CDT STAT PTT [...] Final Re sult DULCE MARIA ARANDA [facility] [place] [address] * (ABNORMAL) CBC without differential (05/15/2025 5:03 AM CDT) Pathologist [facility] WBC 8.01 3.80 - 9.90 K/cumm Hgb 10.6(L) 13.0 - 17.5 g/dL [facility] Hct 32.9(L) 38.9 - 50.3 % [facility] Plt 184 150 - 400 K/cumm [facility] MPV 12.0 9.1 - 12.3 fL [facility] RBC 3.94(L) 4.30 - 5.80 M/cumm [facility] MCV 83.5 81.3 - 96.4 fL [facility] MCH 26.9(L) 27.1 - 33.3 pg [facility] MCHC 32.2(L) 32.3 - 35.7 g/dL [facility] RDW CV 15.4(H) 11.1 - 14.9 % [facility] RDW SD 47.8 35.7 - 48.1 fL [facility] NRBC abs 0.00 0.00 - 0.01 K/cumm [facility] Blood 05/15/2025 5:03 AM CDT 05/15/2025 5:25 AM CDT us Bar Gamble MD LAB BLOOD ORDERABLES Final R esult Performing Organization Address City/[facility]/ZIP Co de Phone Number [facility] [place] [address] * Antibody identification (05/14/2025 10:57 PM CDT) Pathologist [facility] Antibody ID 1 Anti-CD38 Comment:Panreactive -CD38 on reagent RBCs reacting with anti-CD38 therapy. DTT treatment removes cell surface CD38 and allows detection of common clinically significant antibodies except those against [place] antigens. TRANSFUSION [id number] Blood 05/14/2025 10:5 7 PM CDT 05/14/2025 10:57 PM CDT us Libia Suarez NP LAB BLOOD BANK TEST ORDERABLE S Final Result Performing Organization Address City/[facility]/ZIP Co de Phone Number [facility] [place] [address] * Oxyhemoglobin, pulmonary artery (05/14/2025 8:39 PM CDT) Oxyhemoglobin, PA 55.6 % Comment: Interpretive Data No reference range established. Current interpretive data was last revised 2020. Blood 05/14/2025 8:39 PM CDT 05/14/2025 9:06 PM CDT us Bar Gamble MD LAB BLOOD ORDERABLES Final R esult Performing Organization Address [facility] Co de Phone Number [facility] [place] [address] * (ABNORMAL) Hemoglobin total, pulmonary artery (05/14/2025 8:39 PM CDT) Hemoglobin total, PA 10.7(L) 13.0 - 17.5 g/dL Blood 05/14/2025 8:39 PM CDT 05/14/2025 9:06 PM CDT us Bar Gamble MD LAB BLOOD ORDERABLES Final R esult Performing Organization Address [facility] Co de Phone Number [facility] [place] [employer] [place] [address] * Potassium, whole blood (05/14/2025 8:39 PM CDT) Potassium, bld 3.4 3.3 - 4.9 mmol/L Blood 05/14/2025 8:39 PM CDT 05/14/2025 9:06 PM CDT us Zev Cowart MD PhD LAB BLOOD ORDERABLES Fi nal Result Performing Organization Address [facility] Co de Phone Number [facility] [place] [address] * Lactate, whole blood (05/14/2025 8:39 PM CDT) Lactate, bld 0.8 0.7 - 2.0 mmol/L Blood 05/14/2025 8:39 PM CDT 05/14/2025 9:06 PM CDT Bar Gamble MD LAB BLOOD ORDERABLES Final R esult Performing Organization Address [facility] Co de Phone Number [facility] [place] [address] * (ABNORMAL) Type and screen (05/14/2025 8:39 PM CDT) ABO Rh O Positive Poppy, indirect Positive(A) [facility] Blood 05/14/2025 8:39 PM CDT 05/14/2025 9:39 PM CDT Narrative [facility] - 05/14/2025 10:57 PM CDT Has the patient had Daratumumab or Isatuximab in the past 6 months?->Unknown Libia Suarez PROGRAM SUPPORT CLERK LAB BLOOD BANK TEST ORDERABLE S Final Result Performing Organization Address [facility] Co de Phone Number [facility] [place] [address] * Oxyhemoglobin, pulmonary artery (05/14/2025 4:01 PM CDT) Pathologist [facility] Oxyhemoglobin, PA 58.4 % Comment: Interpretive Data No reference range established. Current interpretive data was last revised 2020. Blood 05/14/2025 4:01 PM CDT 05/14/2025 4:30 PM CDT Bar Gamble MD LAB BLOOD ORDERABLES Final R esult Performing Organization Address [facility] Co de Phone Number [facility] [place] [address] * (ABNORMAL) Hemoglobin total, pulmonary artery (05/14/2025 4:01 PM CDT) Hemoglobin total, PA 11.6(L) 13.0 - 17.5 g/dL Blood 05/14/2025 4:01 PM CDT 05/14/2025 4:30 PM CDT us Bar Gamble MD LAB BLOOD ORDERABLES Final R esult Performing Organization Address [facility] Co de Phone Number DULCE MARIA [facility] [place] [address] * (ABNORMAL) eGFR (05/14/2025 4:01 PM CDT) [...] ORDERABLES Final R esult Performing Organization Address [facility] Co de Phone Number [facility] [place] [address] * Lactate, whole blood (05/14/2025 4:01 PM CDT) [facility] Lactate, bld 0.7 0.7 - 2.0 mmol/L Blood 05/14/2025 4:01 PM CDT 05/14/2025 4:23 PM CDT Bar Gamble MD LAB BLOOD ORDERABLES Final R esult Performing Organization Address City/[facility] Co de Phone Number [facility] Department [place] [address] * Magnesium (05/14/2025 4:01 PM CDT) [facility] Magnesium 2.2 1.4 - 2.5 mg/dL Blood 05/14/2025 4:01 PM CDT 05/14/2025 4:44 PM CDT Bar Gamble MD LAB BLOOD ORDERABLES Final R esult Performing Organization Address [facility] de Phone Number [facility] Department [place] [address] * (ABNORMAL) Basic metabolic panel (05/14/2025 4:01 PM CDT) [facility] Sodium 137 135 - 145 mmol/L Potassium, pl 4.1 3.3 - 4.9 mmol/L [facility] Chloride 99 97 - 110 mmol/L [facility] CO2 28 22 - 32 mmol/L [facility] Anion gap 10 2 - 15 mmol/L [facility] BUN 42(H) 6 - 25 mg/dL [facility] Creatinine 1.45(H) 0.80 - 1.30 mg/dL [facility] Glucose 114 70 - 199 mg/dL [facility] Comment: Interpretive Data Fasting glucose >/= 126 [...] 2022. Calcium 9.0 8.5 - 10.3 mg/dL [facility] Blood 05/14/2025 4:0 1 PM CDT 05/14/2025 4:44 PM CDT Bar Gamble MD LAB BLOOD ORDERABLES Final R esult Performing Organization Address [facility] de Phone Number [facility] Department [place] [address] * Oxyhemoglobin, pulmonary artery (05/14/2025 10:58 AM CDT) Oxyhemoglobin, PA 61.5 % Comment: Interpretive Data No reference range established. Current interpretive data was last revised 2020. Blood 05/14/2025 10:5 8 AM CDT 05/14/2025 11:11 AM CDT Bar Gamble MD LAB BLOOD ORDERABLES Final R esult Performing Organization Address [facility] de Phone Number [facility] Department [place] [address] * (ABNORMAL) Hemoglobin total, pulmonary artery (05/14/2025 10:58 AM CDT) Hemoglobin total, PA 11.1(L) 13.0 - 17.5 g/dL Blood 05/14/2025 10:5 8 AM CDT 05/14/2025 11:11 AM CDT Bar Gamble MD LAB BLOOD ORDERABLES Final R esult Performing Organization Address [facility]/ZIP Co de Phone Number [facility] [place] [address] * Lactate, whole blood (05/14/2025 10:58 AM CDT) Lactate, bld 1.0 0.7 - 2.0 mmol/L Blood 05/14/2025 10:5 8 AM CDT 05/14/2025 11:11 AM CDT us Bar Gamble MD LAB BLOOD ORDERABLES Final R esult Performing Organization Address City/[facility] [place] [address] * Oxyhemoglobin, pulmonary artery (05/14/2025 5:26 AM CDT) Oxyhemoglobin, PA 60.3 % Comment: Interpretive Data No reference range established. Current interpretive data was last revised 2020. Blood 05/14/2025 5:26 AM CDT 05/14/2025 5:51 AM CDT us Bar Gamble MD LAB BLOOD ORDERABLES Final R esult Performing Organization Address City/[facility] Co de Phone Number [facility] [place] [address] * (ABNORMAL) Hemoglobin total, pulmonary artery (05/14/2025 5:26 AM CDT) Hemoglobin total, PA 11.0(L) 13.0 - 17.5 g/dL Blood 05/14/2025 5:26 AM CDT 05/14/2025 5:51 AM CDT us Bar Gamble MD LAB BLOOD ORDERABLES Final R esult [facility] [place] [address] * eGFR (05/14/2025 5:26 AM CDT) eGFR [...] MD LAB BLOOD ORDERABLES Final R esult DULCEM ARIA [facility] [place] [address] * (ABNORMAL) Lactate, whole blood (05/14/2025 5:26 AM CDT) Lactate, bld 0.6(L) 0.7 - 2.0 mmol/L Blood 05/14/2025 5:26 AM CDT 05/14/2025 5:51 AM CDT us Bar Gamble MD LAB BLOOD ORDERABLES Final R esult DULCE MARIA [facility] Department [place] [address] * (ABNORMAL) aPTT (05/14/2025 5:26 AM CDT) [facility] aPTT 63(H) 28 - 38 sec Comment: Interpretive Data Heparin therapeutic range: 66.0 - 100.0 seconds. Range based on correlation with therapeutic heparin activity range of 0.3 - 0.7 Units/mL. Current interpretive data was last revised on 2023. Blood 05/14/2025 5:26 AM CDT 05/14/2025 6:01 AM CDT Narrative [facility] - 05/14/2025 7:34 AM CDT STAT PTT [...] drawn peripherally (not from CVC). Libia Suarez PROGRAM SUPPORT CLERK LAB BLOOD ORDERABLES Final Re sult [facility] [place] [address] * (ABNORMAL) CBC without differential (05/14/2025 5:26 AM CDT) [facility] WBC 8.46 3.80 - 9.90 K/cumm Hgb 10.3(L) 13.0 - 17.5 g/dL [facility] Hct 32.0(L) 38.9 - 50.3 % [facility] Plt 172 150 - 400 K/cumm [facility] MPV 11.8 9.1 - 12.3 fL [facility] RBC 3.83(L) 4.30 - 5.80 M/cumm [facility] MCV 83.6 81.3 - 96.4 fL [facility] MCH 26.9(L) 27.1 - 33.3 pg [facility] MCHC 32.2(L) 32.3 - 35.7 g/dL [facility] RDW CV 15.4(H) 11.1 - 14.9 % [facility] RDW SD 46.8 35.7 - 48.1 fL [facility] NRBC abs 0.00 0.00 - 0.01 K/cumm [facility] Blood 05/14/2025 5:26 AM CDT 05/14/2025 6:02 AM CDT us Bar Gamble MD LAB BLOOD ORDERABLES Final R esult Performing Organization Address City/[facility]/ZIP Co de Phone Number [facility] [place] [address] * Magnesium (05/14/2025 5:26 AM CDT) [facility] Magnesium 2.2 1.4 - 2.5 mg/dL Blood 05/14/2025 5:26 AM CDT 05/14/2025 6:02 AM CDT us Bar Gamble MD LAB BLOOD ORDERABLES Final R esult Performing Organization Address City/[facility]/ZIP Co de Phone Number [facility] Department [place] [address] * (ABNORMAL) Hepatic function panel (05/14/2025 5:26 AM CDT) Bilirubin, total 0.6 0.1 - 1.2 mg/dL Bilirubin, direct 0.3 0.1 - 0.3 mg/dL [facility] Protein, pl 5.9(L) 6.5 - 8.5 g/dL [facility] Albumin 3.7 3.5 - 5.0 g/dL [facility] Alk phos 269(H) 40 - 130 Units/L [facility] ALT 19 7 - 55 Units/L [facility] AST 22 10 - 50 Units/L [facility] Blood 05/14/2025 5:26 AM CDT 05/14/2025 6:02 AM CDT us Bar Gamble MD LAB BLOOD ORDERABLES Final R esult [facility] [place] [address] * (ABNORMAL) Basic metabolic panel (05/14/2025 5:26 AM CDT) Sodium 139 135 - 145 mmol/L Potassium, pl 3.5 3.3 - 4.9 mmol/L [facility] Chloride 101 97 - 110 mmol/L [facility] CO2 28 22 - 32 mmol/L [facility] Anion gap 10 2 - 15 mmol/L [facility] BUN 42(H) 6 - 25 mg/dL [facility] Creatinine 1.34(H) 0.80 - 1.30 mg/dL [facility] Glucose 109 70 - 199 mg/dL [facility] Comment: Interpretive Data Fasting glucose >/= 126 [...] 2022. Calcium 9.0 8.5 - 10.3 mg/dL [facility] Blood 05/14/2025 5:26 AM CDT 05/14/2025 6:02 AM CDT us Bar Gamble MD LAB BLOOD ORDERABLES Final R esult Performing Organization Address City/[facility]/ZIP Co de Phone Number [facility] [place] [address] * XR Chest 1 View (05/14/2025 5:18 AM CDT) Anatomical Region Laterality Modality Body, Chest N/A Computed Radiogr aphy 05/14/2025 10:5 6 AM CDT Impressions 05/14/2025 11:22 AM CDT Comparison with 05/13/2025. Right internal jugular Packwood-Jayne catheter tip overlies a right lower lobe [...] IMPRESSION: Comparison with 05/13/2025. Right internal jugular Packwood-Jayne catheter tip overlies a right lower lobe [...] ORDERABLES Final R esult Performing Organization Address [facility] Co de Phone Number [facility] [place] [address] * Hemoglobin total, pulmonary artery (05/13/2025 9:15 PM CDT) Hemoglobin total, PA 13.8 13.0 - 17.5 g/dL Blood 05/13/2025 9:15 PM CDT 05/13/2025 10:13 PM CDT us Bar Gamble MD LAB BLOOD ORDERABLES Final R esult Performing Organization Address [facility] Co de Phone Number [facility] [place] [address] * Potassium, whole blood (05/13/2025 9:15 PM CDT) Potassium, bld 4.1 3.3 - 4.9 mmol/L Blood 05/13/2025 9:15 PM CDT 05/13/2025 10:13 PM CDT us Kendal Block MD LAB BLOOD ORDERABLES Final R esult Performing Organization Address [facility] Co de Phone Number [facility] [place] [address] * Lactate, whole blood (05/13/2025 9:15 PM CDT) Lactate, bld 1.0 0.7 - 2.0 mmol/L Blood 05/13/2025 9:15 PM CDT 05/13/2025 10:13 PM CDT Bar Gamble MD LAB BLOOD ORDERABLES Final R esult Performing Organization Address [facility] Co de Phone Number [facility] [place] [address] * Oxyhemoglobin, pulmonary artery (05/13/2025 4:34 PM CDT) Pathologist [facility] Oxyhemoglobin, PA 54.3 % Comment: Interpretive Data No reference range established. Current interpretive data was last revised 2020. Blood 05/13/2025 4:34 PM CDT 05/13/2025 4:48 PM CDT Bar Gamble MD LAB BLOOD ORDERABLES Final R esult Performing Organization Address [facility] de Phone Number [facility] Department [place] [address] * (ABNORMAL) Hemoglobin total, pulmonary artery (05/13/2025 4:34 PM CDT) [facility] Hemoglobin total, PA 11.5(L) 13.0 - 17.5 g/dL Blood 05/13/2025 4:34 PM CDT 05/13/2025 4:48 PM CDT Bar Gamble MD LAB BLOOD ORDERABLES Final R esult Performing Organization Address [facility] Co de Phone Number [facility] [place] [address] * eGFR (05/13/2025 4:34 PM CDT) Pathologist [facility] eGFR 62 >=60 mL/min/1. 73 m2 Comment: [...] 4:34 PM CDT 05/13/2025 4:53 PM CDT Bar Gamble MD LAB BLOOD ORDERABLES Final R esult Performing Organization Address City/[facility]/ZIP Co de Phone Number [facility] Department [place] [address] * Lactate, whole blood (05/13/2025 4:34 PM CDT) Lactate, bld 0.9 0.7 - 2.0 mmol/L Blood 05/13/2025 4:34 PM CDT 05/13/2025 4:48 PM CDT Bar Gamble MD LAB BLOOD ORDERABLES Final R esult [facility] [place] [address] * Magnesium (05/13/2025 4:34 PM CDT) Magnesium 2.1 1.4 - 2.5 mg/dL Blood 05/13/2025 4:34 PM CDT 05/13/2025 4:53 PM CDT Bar Gamble MD LAB BLOOD ORDERABLES Final R esult DULCE MARIA [facility] Department [place] [address] * (ABNORMAL) Basic metabolic panel (05/13/2025 4:34 PM CDT) Sodium 137 135 - 145 mmol/L Potassium, pl 4.0 3.3 - 4.9 mmol/L [facility] Chloride 101 97 - 110 mmol/L [facility] CO2 26 22 - 32 mmol/L [facility] Anion gap 10 2 - 15 mmol/L [facility] BUN 42(H) 6 - 25 mg/dL [facility] Creatinine 1.31(H) 0.80 - 1.30 mg/dL [facility] Glucose 139 70 - 199 mg/dL [facility] Comment: Interpretive Data Fasting glucose >/= 126 [...] 2022. Calcium 9.2 8.5 - 10.3 mg/dL [facility] Blood 05/13/2025 4:34 PM CDT 05/13/2025 4:53 PM CDT Bar Gamble MD LAB BLOOD ORDERABLES Final R esult DULCE MARIA [facility] [place] [address] * Potassium, whole blood (05/13/2025 11:24 AM CDT) Potassium, bld 4.0 3.3 - 4.9 mmol/L Blood 05/13/2025 11:2 4 AM CDT 05/13/2025 11:38 AM CDT Bar Gamble MD LAB BLOOD ORDERABLES Final R esult Performing Organization Address [facility] Co de Phone Number [facility] [place] [address] * Magnesium (05/13/2025 11:24 AM CDT) Magnesium 2.3 1.4 - 2.5 mg/dL Blood 05/13/2025 11:2 4 AM CDT 05/13/2025 11:50 AM CDT us Bar Gamble MD LAB BLOOD ORDERABLES Final R [facility] Performing Organization Address [facility] Co de Phone Number [facility] [place] [address] * Oxyhemoglobin, pulmonary artery (05/13/2025 11:17 AM CDT) Oxyhemoglobin, PA 57.5 % Comment: Interpretive Data No reference range established. Current interpretive data was last revised 2020. Blood 05/13/2025 11:1 7 AM CDT 05/13/2025 11:38 AM CDT Bar Gamble MD LAB BLOOD ORDERABLES Final R esult Performing Organization Address [facility] Co de Phone Number [facility] [place] [address] * (ABNORMAL) Hemoglobin total, pulmonary artery (05/13/2025 11:17 AM CDT) Hemoglobin total, PA 11.1(L) 13.0 - 17.5 g/dL Blood 05/13/2025 11:1 7 AM CDT 05/13/2025 11:38 AM CDT us Bar Gamble MD LAB BLOOD ORDERABLES Final R esult DULCE MARIA [facility] [place] [address] * Lactate, whole blood (05/13/2025 11:17 AM CDT) Lactate, bld 0.7 0.7 - 2.0 mmol/L Blood 05/13/2025 11:1 7 AM CDT 05/13/2025 11:38 AM CDT us Bar Gamble MD LAB BLOOD ORDERABLES Final R esult Performing Organization Address [facility] Co de Phone Number [employer] [facility] [place] [address] * XR Chest 1 View (05/13/2025 6:26 AM CDT) Anatomical Region Laterality Modality Body, Chest N/A Computed Radiogr aphy 05/13/2025 10:5 5 AM CDT Impressions 05/13/2025 12:43 PM CDT Comparison with 05/12/2025. Right internal jugular Packwood-Jayne catheter tip overlies the right infrahilar region [...] IMPRESSION: Comparison with 05/12/2025. Right internal jugular Packwood-Jayne catheter tip overlies the right infrahilar region [...] MD LAB BLOOD ORDERABLES Final R esult [employer] [facility] [facility] [place] [address] * (ABNORMAL) Hemoglobin total, pulmonary artery (05/13/2025 5:46 AM CDT) Hemoglobin total, PA 10.9(L) 13.0 - 17.5 g/dL Blood 05/13/2025 5:46 AM CDT 05/13/2025 5:53 AM CDT us Bar Gamble MD LAB BLOOD ORDERABLES Final R esult DULCE MARIA [facility] [place] [address] * eGFR (05/13/2025 5:46 AM CDT) eGFR [...] BLOOD ORDERABLES Final R esult DULCE MARIA [facility] [place] [address] * (ABNORMAL) Lactate, whole blood (05/13/2025 5:46 AM CDT) Lactate, bld 0.6(L) 0.7 - 2.0 mmol/L Blood 05/13/2025 5:46 AM CDT 05/13/2025 5:53 AM CDT us Zev Cowart MD PhD LAB BLOOD ORDERABLES Fi nal Result DULCE MARIA [facility] [place] [address] * (ABNORMAL) aPTT (05/13/2025 5:46 AM CDT) [facility] aPTT 65(H) 28 - 38 sec Comment: Interpretive Data Heparin therapeutic range: 66.0 - 100.0 seconds. Range based on correlation with therapeutic heparin activity range of 0.3 - 0.7 Units/mL. Current interpretive data was last revised on 2023. Blood 05/13/2025 5:46 AM CDT 05/13/2025 5:59 AM CDT Narrative [facility] - 05/13/2025 6:22 AM CDT STAT PTT [...] peripherally (not from CVC). us Libia Suarez PROGRAM SUPPORT CLERK LAB BLOOD ORDERABLES Final Re sult [facility] [place] [address] * (ABNORMAL) CBC without differential (05/13/2025 5:46 AM CDT) [facility] WBC 9.41 3.80 - 9.90 K/cumm Hgb 10.6(L) 13.0 - 17.5 g/dL [facility] Hct 32.6(L) 38.9 - 50.3 % [facility] Plt 190 150 - 400 K/cumm [facility] MPV 12.2 9.1 - 12.3 fL [facility] RBC 3.90(L) 4.30 - 5.80 M/cumm [facility] MCV 83.6 81.3 - 96.4 fL [facility] MCH 27.2 27.1 - 33.3 pg [facility] MCHC 32.5 32.3 - 35.7 g/dL [facility] RDW CV 15.6(H) 11.1 - 14.9 % [facility] RDW SD 47.3 35.7 - 48.1 fL [facility] NRBC abs 0.00 0.00 - 0.01 K/cumm [facility] Blood 05/13/2025 5:46 AM CDT 05/13/2025 6:00 AM CDT us Bar Gamble MD LAB BLOOD ORDERABLES Final R esult Performing Organization Address City/[facility]/ZIP Co de Phone Number [facility] [place] [employer] [place] [address] * Phosphorus (05/13/2025 5:46 AM CDT) Phosphorus, pl 3.3 2.3 - 4.5 mg/dL Blood 05/13/2025 5:46 AM CDT 05/13/2025 6:00 AM CDT us Zev Cowart MD PhD LAB BLOOD ORDERABLES Fi nal Result Performing Organization Address [facility] Co de Phone Number [facility] [place] [address] * Magnesium (05/13/2025 5:46 AM CDT) Magnesium 2.1 1.4 - 2.5 mg/dL Blood 05/13/2025 5:46 AM CDT 05/13/2025 6:00 AM CDT us Bar Gamble MD LAB BLOOD ORDERABLES Final R esult Performing Organization Address [facility] Co de Phone Number [facility] [place] [address] * (ABNORMAL) Hepatic function panel (05/13/2025 5:46 AM CDT) Pathologist [facility] Bilirubin, total 0.7 0.1 - 1.2 mg/dL Bilirubin, direct 0.3 0.1 - 0.3 mg/dL [facility] Protein, pl 5.8(L) 6.5 - 8.5 g/dL [facility] Albumin 3.5 3.5 - 5.0 g/dL [facility] Alk phos 255(H) 40 - 130 Units/L [facility] ALT 18 7 - 55 Units/L [facility] AST 21 10 - 50 Units/L [facility] Blood 05/13/2025 5:46 AM CDT 05/13/2025 6:00 AM CDT us Bar Gamble MD LAB BLOOD ORDERABLES Final R esult [facility] [place] [address] * (ABNORMAL) Basic metabolic panel (05/13/2025 5:46 AM CDT) Pathologist [facility] Sodium 138 135 - 145 mmol/L Potassium, pl 3.5 3.3 - 4.9 mmol/L [facility] Chloride 103 97 - 110 mmol/L [facility] CO2 24 22 - 32 mmol/L [facility] Anion gap 11 2 - 15 mmol/L [facility] BUN 40(H) 6 - 25 mg/dL [facility] Creatinine 1.32(H) 0.80 - 1.30 mg/dL [facility] Glucose 103 70 - 199 mg/dL [facility] Comment: Interpretive Data Fasting glucose >/= 126 [...] 2022. Calcium 8.5 8.5 - 10.3 mg/dL [facility] Blood 05/13/2025 5:46 AM CDT 05/13/2025 6:00 AM CDT us Bar Gamble MD LAB BLOOD ORDERABLES Final R esult Performing Organization Address City/[facility] Co de Phone Number [facility] [place] [employer] [place] [address] * Oxyhemoglobin, pulmonary artery (05/12/2025 4:25 PM CDT) Oxyhemoglobin, PA 59.8 % Comment: Interpretive Data No reference range established. Current interpretive data was last revised 2020. Blood 05/12/2025 4:25 PM CDT 05/12/2025 4:35 PM CDT us Bar Gamble MD LAB BLOOD ORDERABLES Final R esult Performing Organization Address [facility] [place] [address] * (ABNORMAL) Hemoglobin total, pulmonary artery (05/12/2025 4:25 PM CDT) Hemoglobin total, PA 11.5(L) 13.0 - 17.5 g/dL Blood 05/12/2025 4:25 PM CDT 05/12/2025 4:35 PM CDT us Bar Gamble MD LAB BLOOD ORDERABLES Final R esult Performing Organization Address City/[facility] Co de Phone Number [facility] [place] [address] * (ABNORMAL) eGFR (05/12/2025 4:25 PM CDT) [...] data was last reviewed 2021. Blood 05/12/2025 4:25 PM CDT 05/12/2025 4:42 PM CDT us Bar Gamble MD LAB BLOOD ORDERABLES Final R [facility]ult [facility] [place] [address] * Lactate, whole blood (05/12/2025 4:25 PM CDT) Pathologist [facility] Lactate, bld 0.9 0.7 - 2.0 mmol/L Blood 05/12/2025 4:25 PM CDT 05/12/2025 4:35 PM CDT us Bar Gamble MD LAB BLOOD ORDERABLES Final R esult DULCE MARIA [facility] [place] [address] * Magnesium (05/12/2025 4:25 PM CDT) Pathologist [facility] Magnesium 2.0 1.4 - 2.5 mg/dL Blood 05/12/2025 4:25 PM CDT 05/12/2025 4:42 PM CDT us Bar Gabmle MD LAB BLOOD ORDERABLES Final R esult [facility] Department [place] [address] * (ABNORMAL) Basic metabolic panel (05/12/2025 4:25 PM CDT) Pathologist [facility] Sodium 137 135 - 145 mmol/L Potassium, pl 4.1 3.3 - 4.9 mmol/L [facility] Chloride 105 97 - 110 mmol/L [facility] CO2 22 22 - 32 mmol/L [facility] Anion gap 10 2 - 15 mmol/L [facility] BUN 41(H) 6 - 25 mg/dL [facility] Creatinine 1.46(H) 0.80 - 1.30 mg/dL [facility] Glucose 112 70 - 199 mg/dL [facility] Comment: Interpretive Data Fasting glucose >/= 126 [...] 2022. Calcium 8.4(L) 8.5 - 10.3 mg/dL [facility] Blood 05/12/2025 4:25 PM CDT 05/12/2025 4:42 PM CDT us Bar Gamble MD LAB BLOOD ORDERABLES Final R esult Performing Organization Address City/[facility]/ZIP Co de Phone Number [facility] Department [place] [address] * Oxyhemoglobin, pulmonary artery (05/12/2025 10:26 AM CDT) Oxyhemoglobin, PA 51.5 % Comment: Interpretive Data No reference range established. Current interpretive data was last revised 2020. Blood 05/12/2025 10:2 6 AM CDT 05/12/2025 10:40 AM CDT us Bar Gamble MD LAB BLOOD [place]AB[place] [address] * (ABNORMAL) Hemoglobin total, pulmonary artery (05/12/2025 10:26 AM CDT) Hemoglobin total, PA 11.0(L) 13.0 - 17.5 g/dL Blood 05/12/2025 10:2 6 AM CDT 05/12/2025 10:40 AM CDT us Bar Gamble MD LAB BLOOD ORDERABLES Final R esult Performing Organization Address City/[facility]/ZIP Co de Phone Number [facility] [place] [address] * Lactate, whole blood (05/12/2025 10:26 AM CDT) Lactate, bld 1.1 0.7 - 2.0 mmol/L Blood 05/12/2025 10:2 6 AM CDT 05/12/2025 10:40 AM CDT us Bar Gamble MD LAB BLOOD [place] [address] * Antibody identification (05/12/2025 5:45 AM CDT) Antibody ID 1 Anti-CD38 Comment:Panreactive -CD38 on reagent RBCs reacting with anti-CD38 therapy. DTT treatment removes cell surface CD38 and allows detection of common clinically significant antibodies except those against [place] antigens. TRANSFUSION 2015;55;[id number] Blood 05/12/2025 5:45 AM CDT 05/12/2025 5:46 AM CDT us Libia Suarez PROGRAM SUPPORT CLERK LAB BLOOD BANK TEST ORDERABLE S Final Result DULCE MARIA [facility] [place] [address] * XR Chest 1 View (05/12/2025 5:42 [...] silhouette. Electronically signed by: Flora Hodges M.D. Bar Gamble MD IMG XR PROCEDURES Final Resu lt * (ABNORMAL) Type and screen (05/12/2025 4:19 AM CDT) ABO Rh O Positive Poppy, indirect Positive(A) [facility] Blood 05/12/2025 4:19 AM CDT 05/12/2025 4:43 AM CDT Narrative [facility] - 05/12/2025 5:46 AM CDT Has the patient had Daratumumab or Isatuximab in the past 6 months?->Unknown Libia Suarez NP LAB BLOOD BANK TEST ORDERABLE S Final Result [facility] [place] [address] * (ABNORMAL) aPTT (05/12/2025 4:17 AM CDT) Pathologist [facility] aPTT 61(H) 28 - 38 sec Comment: Interpretive Data Heparin therapeutic range: 66.0 - 100.0 seconds. Range based on correlation with therapeutic heparin activity range of 0.3 - 0.7 Units/mL. Current interpretive data was last revised on 2023. Blood 05/12/2025 4:17 AM CDT 05/12/2025 4:35 AM CDT Narrative [facility] - 05/12/2025 4:59 AM CDT STAT PTT [...] ORDERABLES Final Re sult Performing Organization Address [facility] Co de Phone Number [facility] [place] [address] * Oxyhemoglobin, pulmonary artery (05/12/2025 4:16 AM CDT) Oxyhemoglobin, PA 58.5 % Comment: Interpretive Data No reference range established. Current interpretive data was last revised 2020. Blood 05/12/2025 4:16 AM CDT 05/12/2025 4:28 AM CDT us Bar Gamble MD LAB BLOOD ORDERABLES Final R esult Performing Organization Address [facility] [place] [address] * (ABNORMAL) Hemoglobin total, pulmonary artery (05/12/2025 4:16 AM CDT) Pathologist [facility] Hemoglobin total, PA 11.2(L) 13.0 - 17.5 g/dL Blood 05/12/2025 4:16 AM CDT 05/12/2025 4:28 AM CDT Bar Gamble MD LAB BLOOD ORDERABLES Final R esult Performing Organization Address City/[facility] Co de Phone Number [facility] [employer] [place] [address] * eGFR (05/12/2025 4:16 AM CDT) eGFR [...] MD LAB BLOOD ORDERABLES Final R esult [facility] [place] [address] * (ABNORMAL) CBC without differential (05/12/2025 4:16 AM CDT) WBC 8.49 3.80 - 9.90 K/cumm Hgb 10.5(L) 13.0 - 17.5 g/dL [facility] Hct 32.0(L) 38.9 - 50.3 % [facility] Plt 181 150 - 400 K/cumm [facility] MPV 12.2 9.1 - 12.3 fL [facility] RBC 3.84(L) 4.30 - 5.80 M/cumm [facility] MCV 83.3 81.3 - 96.4 fL [facility] MCH 27.3 27.1 - 33.3 pg [facility] MCHC 32.8 32.3 - 35.7 g/dL [facility] RDW CV 15.6(H) 11.1 - 14.9 % [facility] RDW SD 47.5 35.7 - 48.1 fL [facility] NRBC abs 0.00 0.00 - 0.01 K/cumm [facility] Blood 05/12/2025 4:16 AM CDT 05/12/2025 4:37 AM CDT Bar Gamble MD LAB BLOOD ORDERABLES Final R esult Performing Organization Address City/[facility] Co de Phone Number [facility] [place] [address] * Magnesium (05/12/2025 4:16 AM CDT) Pathologist [facility] Magnesium 2.2 1.4 - 2.5 mg/dL Blood 05/12/2025 4:16 AM CDT 05/12/2025 4:32 AM CDT Bar Gamble MD LAB BLOOD ORDERABLES Final R esult Performing Organization Address [facility] de Phone Number [facility] [place] [address] * (ABNORMAL) Hepatic function panel (05/12/2025 4:16 AM CDT) Bilirubin, total 0.6 0.1 - 1.2 mg/dL Bilirubin, direct 0.3 0.1 - 0.3 mg/dL [facility] Protein, pl 5.8(L) 6.5 - 8.5 g/dL [facility] Albumin 3.7 3.5 - 5.0 g/dL [facility] Alk phos 274(H) 40 - 130 Units/L [facility] ALT 21 7 - 55 Units/L [facility] AST 23 10 - 50 Units/L [facility] Blood 05/12/2025 4:16 AM CDT 05/12/2025 4:32 AM CDT Result [facility] Bar Gamble MD LAB BLOOD ORDERABLES Final R esult [facility] Department [place] [address] * (ABNORMAL) Basic metabolic panel (05/12/2025 4:16 AM CDT) Sodium 136 135 - 145 mmol/L Potassium, pl 4.4 3.3 - 4.9 mmol/L [facility] Chloride 101 97 - 110 mmol/L [facility] CO2 26 22 - 32 mmol/L [facility] Anion gap 9 2 - 15 mmol/L [facility] BUN 38(H) 6 - 25 mg/dL [facility] Creatinine 1.32(H) 0.80 - 1.30 mg/dL [facility] Glucose 107 70 - 199 mg/dL [facility] Comment: Interpretive Data Fasting glucose >/= 126 [...] 2022. Calcium 9.2 8.5 - 10.3 mg/dL [facility] Blood 05/12/2025 4:16 AM CDT 05/12/2025 4:32 AM CDT us Bar Gamble MD LAB BLOOD ORDERABLES Final R esult [facility] Department [place] [address] * Oxyhemoglobin, pulmonary artery (05/11/2025 4:20 PM CDT) Oxyhemoglobin, PA 59.9 % Comment: Interpretive Data No reference range established. Current interpretive data was last revised 2020. Blood 05/11/2025 4:20 PM CDT 05/11/2025 4:29 PM CDT us Bar Gamble MD LAB BLOOD ORDERABLES Final R esult Performing Organization Address City/[facility] Co de Phone Number [facility] [place] [address] * (ABNORMAL) Hemoglobin total, pulmonary artery (05/11/2025 4:20 PM CDT) Hemoglobin total, PA 10.7(L) 13.0 - 17.5 g/dL Blood 05/11/2025 4:20 PM CDT 05/11/2025 4:29 PM CDT us Bar Gamble MD LAB BLOOD ORDERABLES Final R esult Performing Organization Address [facility] Co de Phone Number [facility] [place] [address] * Potassium, whole blood (05/11/2025 4:20 PM CDT) Potassium, bld 3.9 3.3 - 4.9 mmol/L Blood 05/11/2025 4:20 PM CDT 05/11/2025 4:29 PM CDT us Bar Gamble MD LAB BLOOD ORDERABLES Final R esult Performing Organization Address City/[facility] Co de Phone Number [facility] [employer] [place] [address] * eGFR (05/11/2025 4:20 PM CDT) eGFR [...] ORDERABLES Final R esult Performing Organization Address City/[facility]/ZIP Co de Phone Number DULCE MARIA [facility] [place] [address] * (ABNORMAL) Lactate, whole blood (05/11/2025 4:20 PM CDT) Lactate, bld 0.6(L) 0.7 - 2.0 mmol/L Blood 05/11/2025 4:20 PM CDT 05/11/2025 4:29 PM CDT us Bar Gamble MD LAB BLOOD ORDERABLES Final R esult [facility] [place] [address] * Magnesium (05/11/2025 4:20 PM CDT) Magnesium 2.1 1.4 - 2.5 mg/dL Blood 05/11/2025 4:20 PM CDT 05/11/2025 4:35 PM CDT us Bar Gamble MD LAB BLOOD ORDERABLES Final R esult Performing Organization Address City/[facility]/ZIP Co de Phone Number [facility] Department [place] [address] * (ABNORMAL) Basic metabolic panel (05/11/2025 4:20 PM CDT) [facility] Sodium 136 135 - 145 mmol/L Potassium, pl 4.3 3.3 - 4.9 mmol/L [facility] Chloride 103 97 - 110 mmol/L [facility] CO2 23 22 - 32 mmol/L [facility] Anion gap 10 2 - 15 mmol/L [facility] BUN 38(H) 6 - 25 mg/dL [facility] Creatinine 1.34(H) 0.80 - 1.30 mg/dL [facility] Glucose 113 70 - 199 mg/dL [facility] Comment: Interpretive Data Fasting glucose >/= 126 [...] 2022. Calcium 8.7 8.5 - 10.3 mg/dL [facility] Blood 05/11/2025 4:20 PM CDT 05/11/2025 4:35 PM CDT us Bar Gamble MD LAB BLOOD ORDERABLES Final R esult Performing Organization Address [facility]/ZIP Co de Phone Number [facility] Department [place] [address] * Oxyhemoglobin, pulmonary artery (05/11/2025 10:12 AM CDT) Oxyhemoglobin, PA 51.5 % Comment: Interpretive Data No reference range established. Current interpretive data was last revised 2020. Blood 05/11/2025 10:1 2 AM CDT 05/11/2025 10:24 AM CDT us Bar Gamble MD LAB BLOOD ORDERABLES Final R esult Performing Organization Address City/[facility] Co de Phone Number [facility] [place] [address] * (ABNORMAL) Hemoglobin total, pulmonary artery (05/11/2025 10:12 AM CDT) Pathologist [facility] Hemoglobin total, PA 10.5(L) 13.0 - 17.5 g/dL Blood 05/11/2025 10:1 2 AM CDT 05/11/2025 10:24 AM CDT us Bar Gamble MD LAB BLOOD ORDERABLES Final R esult Performing Organization Address [facility] Co de Phone Number [facility] Department [place] [address] * Lactate, whole blood (05/11/2025 10:12 AM CDT) Lactate, bld 0.8 0.7 - 2.0 mmol/L Blood 05/11/2025 10:1 2 AM CDT 05/11/2025 10:24 AM CDT us Bar Gamble MD LAB BLOOD ORDERABLES Final R esult Performing Organization Address City/[facility] Co de Phone Number [facility] [place] [address] * (ABNORMAL) aPTT (05/11/2025 10:12 AM CDT) aPTT 62(H) 28 - 38 sec Comment: Interpretive Data Heparin therapeutic range: 66.0 - 100.0 seconds. Range based on correlation with therapeutic heparin activity range of 0.3 - 0.7 Units/mL. Current interpretive data was last revised on 2023. Blood 05/11/2025 10:1 2 AM CDT 05/11/2025 10:30 AM CDT [facility] - 05/11/2025 10:59 AM CDT STAT PTT [...] peripherally (not from CVC). us Libia Suarez PROGRAM SUPPORT CLERK LAB BLOOD ORDERABLES Final Re sult DULCE MARIA [facility] [place] [address] * (ABNORMAL) aPTT (05/11/2025 8:20 AM CDT) Pathologist [facility] aPTT 60(H) 28 - 38 sec Comment: Interpretive Data Heparin therapeutic range: 66.0 - 100.0 seconds. Range based on correlation with therapeutic heparin activity range of 0.3 - 0.7 Units/mL. Current interpretive data was last revised on 2023. Blood 05/11/2025 8:20 AM CDT 05/11/2025 8:40 AM CDT [facility] - 05/11/2025 9:02 AM CDT STAT PTT [...] drawn peripherally (not from CVC). Libia Suarez PROGRAM SUPPORT CLERK LAB BLOOD ORDERABLES Final Re sult DULCE MARIA [facility] [place] [address] * XR Chest 1 View (05/11/2025 5:34 AM CDT) Anatomical Region Laterality Modality Body, Chest N/A Computed Radiogr aphy 05/11/2025 7:28 AM CDT Impressions 05/11/2025 10:39 AM CDT The current study is compared with the prior radiograph dated 05/10/2025 [place]-Jayne catheter tip overlies a right lower lobe [...] compared with the prior radiograph dated 05/10/2025 [place]-Jayne catheter tip overlies a right lower lobe [...] BLOOD ORDERABLES Final R esult DULCE MARIA [facility] [place] [address] * (ABNORMAL) CBC without differential (05/11/2025 5:00 AM CDT) WBC 9.06 3.80 - 9.90 K/cumm Hgb 10.4(L) 13.0 - 17.5 g/dL [facility] Hct 31.9(L) 38.9 - 50.3 % [facility] Plt 177 150 - 400 K/cumm [facility] MPV 12.0 9.1 - 12.3 fL [facility] RBC 3.87(L) 4.30 - 5.80 M/cumm [facility] MCV 82.4 81.3 - 96.4 fL [facility] MCH 26.9(L) 27.1 - 33.3 pg [facility] MCHC 32.6 32.3 - 35.7 g/dL [facility] RDW CV 15.6(H) 11.1 - 14.9 % [facility] RDW SD 47.5 35.7 - 48.1 fL [facility] NRBC abs 0.00 0.00 - 0.01 K/cumm [facility] Blood 05/11/2025 5:00 AM CDT 05/11/2025 5:10 AM CDT us Bar Gamble MD LAB BLOOD ORDERABLES Final R esult Performing Organization Address City/[facility]/ZIP Co de Phone Number [facility] [place] [address] * Phosphorus (05/11/2025 5:00 AM CDT) [facility] Phosphorus, pl 3.4 2.3 - 4.5 mg/dL Blood 05/11/2025 5:00 AM CDT 05/11/2025 5:09 AM CDT us Zev Cowart MD PhD LAB BLOOD ORDERABLES Fi nal Result Performing Organization Address City/[facility]/ZIP Co de Phone Number [facility] [place] [address] * Magnesium (05/11/2025 5:00 AM CDT) [facility] Magnesium 2.1 1.4 - 2.5 mg/dL Blood 05/11/2025 5:00 AM CDT 05/11/2025 5:09 AM CDT Bar Gamble MD LAB BLOOD ORDERABLES Final R esult Performing Organization Address [facility] Co de Phone Number [facility] [place] [address] * (ABNORMAL) Hepatic function panel (05/11/2025 5:00 AM CDT) [facility] Bilirubin, total 0.6 0.1 - 1.2 mg/dL Bilirubin, direct 0.3 0.1 - 0.3 mg/dL [facility] Protein, pl 5.5(L) 6.5 - 8.5 g/dL [facility] Albumin 3.5 3.5 - 5.0 g/dL [facility] Alk phos 254(H) 40 - 130 Units/L [facility] ALT 20 7 - 55 Units/L [facility] AST 22 10 - 50 Units/L [facility] Blood 05/11/2025 5:00 AM CDT 05/11/2025 5:09 AM CDT Bar Gamble MD LAB BLOOD ORDERABLES Final R esult Performing Organization Address City/[facility] [facility] Co de Phone Number [facility] [place] [address] * (ABNORMAL) Basic metabolic panel (05/11/2025 5:00 AM CDT) [facility] Sodium 135 135 - 145 mmol/L Potassium, pl 3.4 3.3 - 4.9 mmol/L [facility] Chloride 101 97 - 110 mmol/L [facility] CO2 26 22 - 32 mmol/L [facility] Anion gap 8 2 - 15 mmol/L [facility] BUN 37(H) 6 - 25 mg/dL [facility] Creatinine 1.30 0.80 - 1.30 mg/dL [facility] Glucose 104 70 - 199 mg/dL [facility] Comment: Interpretive Data Fasting glucose >/= 126 [...] 2022. Calcium 8.6 8.5 - 10.3 mg/dL [facility] Blood 05/11/2025 5:00 AM CDT 05/11/2025 5:09 AM CDT us Bar Gamble MD LAB BLOOD ORDERABLES Final R esult [facility] [place] [address] * Oxyhemoglobin, pulmonary artery (05/11/2025 4:47 AM CDT) Oxyhemoglobin, PA 59.8 % Comment: Interpretive Data No reference range established. Current interpretive data was last revised 2020. Blood 05/11/2025 4:47 AM CDT 05/11/2025 5:06 AM CDT us Bar Gamble MD LAB BLOOD ORDERABLES Final R esult [facility] [place] [address] * (ABNORMAL) Hemoglobin total, pulmonary artery (05/11/2025 4:47 AM CDT) Hemoglobin total, PA 10.7(L) 13.0 - 17.5 g/dL Blood 05/11/2025 4:4 7 AM CDT 05/11/2025 5:06 AM CDT Bar Gamble MD LAB BLOOD ORDERABLES Final R esult Performing Organization Address [facility] Co de Phone Number [facility] [place] [address] * (ABNORMAL) Lactate, whole blood (05/11/2025 4:47 AM CDT) Lactate, bld 0.6(L) 0.7 - 2.0 mmol/L Blood 05/11/2025 4:47 AM CDT 05/11/2025 5:06 AM CDT Bar Gamble MD LAB BLOOD ORDERABLES Final R ult Performing Organization Address [facility] de Phone Number [facility] [place] [address] * (ABNORMAL) aPTT (05/11/2025 3:46 AM CDT) aPTT 44(H) 28 - 38 sec Comment: Interpretive Data Heparin therapeutic range: 66.0 - 100.0 seconds. Range based on correlation with therapeutic heparin activity range of 0.3 - 0.7 Units/mL. Current interpretive data was last revised on 2023. Blood 05/11/2025 3:46 AM CDT 05/11/2025 5:33 AM CDT Narrative [facility] - 05/11/2025 5:42 AM CDT STAT PTT [...] ORDERABLES Final Re sult Performing Organization Address [facility] Co de Phone Number [facility] [place] [address] * Oxyhemoglobin, pulmonary artery (05/10/2025 5:40 PM CDT) Oxyhemoglobin, PA 51.6 % Comment: Interpretive Data No reference range established. Current interpretive data was last revised 2020. Blood 05/10/2025 5:40 PM CDT 05/10/2025 5:50 PM CDT Bar Gamble MD LAB BLOOD ORDERABLES Final R esult Performing Organization Address [facility] Co de Phone Number [facility] [place] [address] * (ABNORMAL) Hemoglobin total, pulmonary artery (05/10/2025 5:40 PM CDT) Hemoglobin total, PA 11.7(L) 13.0 - 17.5 g/dL Blood 05/10/2025 5:40 PM CDT 05/10/2025 5:50 PM CDT Bar Gamble MD LAB BLOOD ORDERABLES Final R esult Performing Organization Address [facility] Co de Phone Number [place], [place] [id number] * (ABNORMAL) eGFR (05/10/2025 5:40 PM CDT) Pathologist [facility] eGFR 57(L) >=60 mL/min/1. 73 m2 Comment: [...] ORDERABLES Final R esult Performing Organization Address City/[facility]/ZIP Co de Phone Number [facility] [place] [address] * (ABNORMAL) Lactate, whole blood (05/10/2025 5:40 PM CDT) Lactate, bld 0.6(L) 0.7 - 2.0 mmol/L Blood 05/10/2025 5:40 PM CDT 05/10/2025 5:50 PM CDT us Bar Gamble MD LAB BLOOD ORDERABLES Final R esult [facility] [place] [address] * Magnesium (05/10/2025 5:40 PM CDT) Magnesium 2.2 1.4 - 2.5 mg/dL Blood 05/10/2025 5:40 PM CDT 05/10/2025 5:57 PM CDT Bar Gamble MD LAB BLOOD ORDERABLES Final R esult Performing Organization Address City/[facility]/ZIP Co de Phone Number [facility] [place] [address] * (ABNORMAL) Basic metabolic panel (05/10/2025 5:40 PM CDT) [facility] Sodium 135 135 - 145 mmol/L Potassium, pl 3.9 3.3 - 4.9 mmol/L [facility] Chloride 98 97 - 110 mmol/L [facility] CO2 26 22 - 32 mmol/L [facility] Anion gap 11 2 - 15 mmol/L [facility] BUN 41(H) 6 - 25 mg/dL [facility] Creatinine 1.41(H) 0.80 - 1.30 mg/dL [facility] Glucose 141 70 - 199 mg/dL [facility] Comment: Interpretive Data Fasting glucose >/= 126 [...] 2022. Calcium 9.2 8.5 - 10.3 mg/dL [facility] Blood 05/10/2025 5:40 PM CDT 05/10/2025 5:57 PM CDT Bar Gamble MD LAB BLOOD ORDERABLES Final R esult Performing Organization Address [facility] Co de Phone Number [facility] [place] [address] * Oxyhemoglobin, pulmonary artery (05/10/2025 12:30 PM CDT) Oxyhemoglobin, PA 58.9 % Comment: Interpretive Data No reference range established. Current interpretive data was last revised 2020. Blood 05/10/2025 12:3 0 PM CDT 05/10/2025 12:39 PM CDT us Bar Gamble MD LAB BLOOD ORDERABLES Final R esult Performing Organization Address City/[facility] Co de Phone Number [facility] [place] [address] * (ABNORMAL) Hemoglobin total, pulmonary artery (05/10/2025 12:30 PM CDT) Hemoglobin total, PA 11.8(L) 13.0 - 17.5 g/dL Blood 05/10/2025 12:3 0 PM CDT 05/10/2025 12:39 PM CDT us Bar Gamble MD LAB BLOOD ORDERABLES Final R esult Performing Organization Address [facility] Co de Phone Number [facility] [place] [address] * Lactate, whole blood (05/10/2025 12:30 PM CDT) Lactate, bld 1.0 0.7 - 2.0 mmol/L Blood 05/10/2025 12:3 0 PM CDT 05/10/2025 12:39 PM CDT us Bar Gamble MD LAB BLOOD ORDERABLES Final R esult Performing Organization Address City/[facility] Co de Phone Number [facility] [place] [address] * XR Chest 1 View (05/10/2025 7:02 AM CDT) Anatomical Region Laterality Modality Body, Chest N/A Digital Radiogra phy 05/10/2025 10:1 1 AM CDT Impressions 05/10/2025 10:24 AM CDT The current study is compared with the prior radiograph dated 05/09/2025. Packwood-Jayne catheter has been advanced and the tip [...] compared with the prior radiograph dated 05/09/2025. Packwood-Jayne catheter has been advanced and the tip [...] Oxyhemoglobin, pulmonary artery (05/10/2025 4:34 AM CDT) Oxyhemoglobin, PA 64.8 % Comment: Interpretive Data No reference range established. Current interpretive data was last revised 2020. Blood 05/10/2025 4:34 AM CDT 05/10/2025 4:42 AM CDT us Bar Gamble MD LAB BLOOD ORDERABLES Final R esult [facility] [place] [address] * (ABNORMAL) Hemoglobin total, pulmonary artery (05/10/2025 4:34 AM CDT) Hemoglobin total, PA 10.6(L) 13.0 - 17.5 g/dL Blood 05/10/2025 4:34 AM CDT 05/10/2025 4:42 AM CDT us Bar Gamble MD LAB BLOOD ORDERABLES Final R esult Performing Organization Address City/[facility] Co de Phone Number [facility] [place] [address] * eGFR (05/10/2025 4:34 AM CDT) eGFR 62 >=60 mL/min/1. 73 [...] ORDERABLES Final R esult Performing Organization Address [facility] Co de Phone Number [facility] [place] [address] * (ABNORMAL) Lactate, whole blood (05/10/2025 4:34 AM CDT) Lactate, bld 0.5(L) 0.7 - 2.0 mmol/L Comment:Mary and macy rodas Blood 05/10/2025 4:34 AM CDT 05/10/2025 4:42 AM CDT us Bar Gamble MD LAB BLOOD ORDERABLES Final R esult Performing Organization Address [facility] de Phone Number [facility] [place] [address] * (ABNORMAL) aPTT (05/10/2025 4:34 AM CDT) aPTT 61(H) 28 - 38 sec Comment: Interpretive Data Heparin therapeutic range: 66.0 - 100.0 seconds. Range based on correlation with therapeutic heparin activity range of 0.3 - 0.7 Units/mL. Current interpretive data was last revised on 2023. Blood 05/10/2025 4:34 AM CDT 05/10/2025 4:54 AM CDT Narrative [facility] - 05/10/2025 5:04 AM CDT STAT PTT [...] ORDERABLES Final Re sult Performing Organization Address [facility]/ZIP Co de Phone Number [facility] [place] [address] * (ABNORMAL) CBC without differential (05/10/2025 4:34 AM CDT) [facility] WBC 8.33 3.80 - 9.90 K/cumm Hgb 10.9(L) 13.0 - 17.5 g/dL [facility] Hct 33.0(L) 38.9 - 50.3 % [facility] Plt 176 150 - 400 K/cumm [facility] MPV 12.0 9.1 - 12.3 fL [facility] RBC 3.96(L) 4.30 - 5.80 M/cumm [facility] MCV 83.3 81.3 - 96.4 fL [facility] MCH 27.5 27.1 - 33.3 pg [facility] MCHC 33.0 32.3 - 35.7 g/dL [facility] RDW CV 15.4(H) 11.1 - 14.9 % [facility] RDW SD 47.1 35.7 - 48.1 fL [facility] NRBC abs 0.00 0.00 - 0.01 K/cumm [facility] Blood 05/10/2025 4:34 AM CDT 05/10/2025 4:45 AM CDT us Bar Gamble MD LAB BLOOD ORDERABLES Final R esult Performing Organization Address City/[facility]/ZIP Co de Phone Number [facility] [place] [address] * Magnesium (05/10/2025 4:34 AM CDT) [facility] Magnesium 2.3 1.4 - 2.5 mg/dL Blood 05/10/2025 4:34 AM CDT 05/10/2025 4:44 AM CDT Bar Gamble MD LAB BLOOD ORDERABLES Final R esult Performing Organization Address [facility] Co de Phone Number [facility] [place] [address] * (ABNORMAL) Hepatic function panel (05/10/2025 4:34 AM CDT) [facility] Bilirubin, total 0.6 0.1 - 1.2 mg/dL Bilirubin, direct 0.3 0.1 - 0.3 mg/dL [facility] Protein, pl 6.0(L) 6.5 - 8.5 g/dL [facility] Albumin 3.7 3.5 - 5.0 g/dL [facility] Alk phos 263(H) 40 - 130 Units/L [facility] ALT 21 7 - 55 Units/L [facility] AST 23 10 - 50 Units/L [facility] Blood 05/10/2025 4:34 AM CDT 05/10/2025 4:44 AM CDT Bar Gamble MD LAB BLOOD ORDERABLES Final R esult Performing Organization Address [facility] Co de Phone Number [facility] Department [place] [address] * (ABNORMAL) Basic metabolic panel (05/10/2025 4:34 AM CDT) [facility] Sodium 136 135 - 145 mmol/L Potassium, pl 4.0 3.3 - 4.9 mmol/L [facility] Chloride 99 97 - 110 mmol/L [facility] CO2 27 22 - 32 mmol/L [facility] Anion gap 10 2 - 15 mmol/L [facility] BUN 37(H) 6 - 25 mg/dL [facility] Creatinine 1.31(H) 0.80 - 1.30 mg/dL [facility] Glucose 111 70 - 199 mg/dL [facility] Comment: Interpretive Data Fasting glucose >/= 126 [...] 2022. Calcium 9.6 8.5 - 10.3 mg/dL [facility] Blood 05/10/2025 4:34 AM CDT 05/10/2025 4:44 AM CDT us Bar Gamble MD LAB BLOOD ORDERABLES Final R esult [facility] [place] [address] * Oxyhemoglobin, pulmonary artery (05/09/2025 8:55 PM CDT) Oxyhemoglobin, PA 50.3 % Comment: Interpretive Data No reference range established. Current interpretive data was last revised 2020. Blood 05/09/2025 8:55 PM CDT 05/09/2025 9:06 PM CDT us Bar Gamble MD LAB BLOOD ORDERABLES Final R esult [facility] [place] [address] * (ABNORMAL) Hemoglobin total, pulmonary artery (05/09/2025 8:55 PM CDT) Hemoglobin total, PA 11.8(L) 13.0 - 17.5 g/dL Blood 05/09/2025 8:55 PM CDT 05/09/2025 9:06 PM CDT us Bar Gamble MD LAB BLOOD ORDERABLES Final R esult Performing Organization Address [facility] Co de Phone Number [facility] [place] [address] * Lactate, whole blood (05/09/2025 8:55 PM CDT) Lactate, bld 1.1 0.7 - 2.0 mmol/L Blood 05/09/2025 8:55 PM CDT 05/09/2025 9:06 PM CDT us Bar Gamble MD LAB BLOOD ORDERABLES Final R esult Performing Organization Address [facility] Co de Phone Number [facility] [place] [address] * Oxyhemoglobin, pulmonary artery (05/09/2025 5:04 PM CDT) Oxyhemoglobin, PA 47.6 % Comment: Interpretive Data No reference range established. Current interpretive data was last revised 2020. Blood 05/09/2025 5:04 PM CDT 05/09/2025 5:27 PM CDT us Bar Gamble MD LAB BLOOD ORDERABLES Final R esult Performing Organization Address [facility] Co de Phone Number [facility] [place] [address] * (ABNORMAL) Hemoglobin total, pulmonary artery (05/09/2025 5:04 PM CDT) Hemoglobin total, PA 12.2(L) 13.0 - 17.5 g/dL Blood 05/09/2025 5:04 PM CDT 05/09/2025 5:27 PM CDT Bar Gamble MD LAB BLOOD ORDERABLES Final R esult Performing Organization Address City/[facility]/ZIP Co de Phone Number [facility] [place] [address] * (ABNORMAL) eGFR (05/09/2025 5:04 PM CDT) [...] ORDERABLES Final R esult Performing Organization Address City/[facility]/ZIP Co de [facility] [place] [address] * Lactate, whole blood (05/09/2025 5:04 PM CDT) Lactate, bld 1.1 0.7 - 2.0 mmol/L Blood 05/09/2025 5:04 PM CDT 05/09/2025 5:27 PM CDT Bar Gamble MD LAB BLOOD ORDERABLES Final R esult Performing Organization Address City/[facility]/ZIP Co de Phone Number [facility] [place] [address] * Magnesium (05/09/2025 5:04 PM CDT) [facility] Magnesium 2.3 1.4 - 2.5 mg/dL Blood 05/09/2025 5:04 PM CDT 05/09/2025 5:35 PM CDT Bar Gamble MD LAB BLOOD ORDERABLES Final R [facility] Performing Organization Address [facility] de Phone Number [facility] [place] [address] * (ABNORMAL) Basic metabolic panel (05/09/2025 5:04 PM CDT) [facility] Sodium 136 135 - 145 mmol/L Potassium, pl 4.8 3.3 - 4.9 mmol/L [facility] Chloride 98 97 - 110 mmol/L [facility] CO2 27 22 - 32 mmol/L [facility] Anion gap 11 2 - 15 mmol/L [facility] BUN 39(H) 6 - 25 mg/dL [facility] Creatinine 1.38(H) 0.80 - 1.30 mg/dL [facility] Glucose 143 70 - 199 mg/dL [facility] Comment: Interpretive Data Fasting glucose >/= 126 [...] 2022. Calcium 9.6 8.5 - 10.3 mg/dL [facility] Blood 05/09/2025 5:04 PM CDT 05/09/2025 5:35 PM CDT Bar Gamble MD LAB BLOOD ORDERABLES Final R esult [facility] [place] [address] * XR Chest 1 View (05/09/2025 5:25 AM CDT) Anatomical Region Laterality Modality Body, Chest N/A Digital Radiogra phy 05/09/2025 9:18 AM CDT Impressions 05/09/2025 11:15 AM CDT The current study is compared with the prior radiograph dated 05/08/2025. A Packwood-Jayne catheter is in place, tip overlies the [...] with the prior radiograph dated 05/08/2025. A Packwood-Jayne catheter is in place, tip overlies the [...] it. Electronically signed by: Zev Jaimes M.D. Bar Gamble MD IMG XR PROCEDURES Final Resu lt * Oxyhemoglobin, pulmonary artery (05/09/2025 5:22 AM CDT) Oxyhemoglobin, PA 70.6 % Comment: Interpretive Data No reference range established. Current interpretive data was last revised 2020. Blood 05/09/2025 5:22 AM CDT 05/09/2025 5:29 AM CDT Bar Gamble MD LAB BLOOD ORDERABLES Final R esult Performing Organization Address [facility] Co de Phone Number [facility] [place] [address] * (ABNORMAL) Hemoglobin total, pulmonary artery (05/09/2025 5:22 AM CDT) [facility] Hemoglobin total, PA 11.1(L) 13.0 - 17.5 g/dL Blood 05/09/2025 5:22 AM CDT 05/09/2025 5:29 AM CDT Bar Gamble MD LAB BLOOD ORDERABLES Final R esult DUL[facility] MAR[facility] [place] [address] * (ABNORMAL) eGFR (05/09/2025 5:22 AM CDT) [facility] eGFR 56(L) >=60 mL/min/1. 73 m2 Comment: [...] ORDERABLES Final R esult Performing Organization Address City/[facility]/ZIP Co de Phone Number DULCE MARIA [facility] Department [place] [address] * Lactate, whole blood (05/09/2025 5:22 AM CDT) Lactate, bld 0.7 0.7 - 2.0 mmol/L Blood 05/09/2025 5:22 AM CDT 05/09/2025 5:29 AM CDT us Bar Gamble MD LAB BLOOD ORDERABLES Final R esult [facility] Department [place] [address] * (ABNORMAL) aPTT (05/09/2025 5:22 AM CDT) aPTT 60(H) 28 - 38 sec Comment: Interpretive Data Heparin therapeutic range: 66.0 - 100.0 seconds. Range based on correlation with therapeutic heparin activity range of 0.3 - 0.7 Units/mL. Current interpretive data was last revised on 2023. Blood 05/09/2025 5:22 AM CDT 05/09/2025 5:36 AM CDT Narrative [facility] - 05/09/2025 6:02 AM CDT STAT PTT [...] peripherally (not from CVC). us Libia Suarez PROGRAM SUPPORT CLERK LAB BLOOD ORDERABLES Final Re sult [facility] [place] [address] * (ABNORMAL) CBC without differential (05/09/2025 5:22 AM CDT) WBC 8.65 3.80 - 9.90 K/cumm Hgb 10.9(L) 13.0 - 17.5 g/dL [facility] Hct 33.0(L) 38.9 - 50.3 % [facility] Plt 172 150 - 400 K/cumm [facility] MPV 11.6 9.1 - 12.3 fL [facility] RBC 3.98(L) 4.30 - 5.80 M/cumm [facility] MCV 82.9 81.3 - 96.4 fL [facility] MCH 27.4 27.1 - 33.3 pg [facility] MCHC 33.0 32.3 - 35.7 g/dL [facility] RDW CV 15.7(H) 11.1 - 14.9 % [facility] RDW SD 47.6 35.7 - 48.1 fL [facility] NRBC abs 0.00 0.00 - 0.01 K/cumm [facility] Blood 05/09/2025 5:22 AM CDT 05/09/2025 5:32 AM CDT Bar Gamble MD LAB BLOOD ORDERABLES Final R esult Performing Organization Address City/[facility] Co de Phone Number [facility] [place] [address] * Phosphorus (05/09/2025 5:22 AM CDT) Phosphorus, pl 3.4 2.3 - 4.5 mg/dL Blood 05/09/2025 5:22 AM CDT 05/09/2025 5:32 AM CDT Bar Gamble MD LAB BLOOD ORDERABLES Final R esult Performing Organization Address [facility] Co de Phone Number [facility] [place] [address] * Magnesium (05/09/2025 5:22 AM CDT) Pathologist [facility] Magnesium 2.1 1.4 - 2.5 mg/dL Blood 05/09/2025 5:22 AM CDT 05/09/2025 5:32 AM CDT Bar Gamble MD LAB BLOOD ORDERABLES Final R esult Performing Organization Address City/[facility] Co de Phone Number [facility] [place] [address] * (ABNORMAL) Hepatic function panel (05/09/2025 5:22 AM CDT) Bilirubin, total 0.6 0.1 - 1.2 mg/dL Bilirubin, direct 0.3 0.1 - 0.3 mg/dL [facility] Protein, pl 5.8(L) 6.5 - 8.5 g/dL [facility] Albumin 3.6 3.5 - 5.0 g/dL [facility] Alk phos 243(H) 40 - 130 Units/L [facility] ALT 23 7 - 55 Units/L [facility] AST 19 10 - 50 Units/L [facility] Blood 05/09/2025 5:22 AM CDT 05/09/2025 5:32 AM CDT Bar Gamble MD LAB BLOOD ORDERABLES Final R esult [facility] [place] [address] * (ABNORMAL) Basic metabolic panel (05/09/2025 5:22 AM CDT) Sodium 139 135 - 145 mmol/L Potassium, pl 3.9 3.3 - 4.9 mmol/L [facility] Chloride 99 97 - 110 mmol/L [facility] CO2 29 22 - 32 mmol/L [facility] Anion gap 11 2 - 15 mmol/L [facility] BUN 37(H) 6 - 25 mg/dL [facility] Creatinine 1.43(H) 0.80 - 1.30 mg/dL [facility] Glucose 105 70 - 199 mg/dL [facility] Comment: Interpretive Data Fasting glucose >/= 126 [...] 2022. Calcium 8.8 8.5 - 10.3 mg/dL [facility] Blood 05/09/2025 5:22 AM CDT 05/09/2025 5:32 AM CDT Bar Gamble MD LAB BLOOD ORDERABLES Final R esult Performing Organization Address [facility] [place] [address] * Oxyhemoglobin, pulmonary artery (05/09/2025 12:00 AM CDT) Oxyhemoglobin, PA 64.2 % Comment: Interpretive Data No reference range established. Current interpretive data was last revised 2020. Blood 05/09/2025 05/09/2025 12: 07 AM CDT us Bar Gamble MD LAB BLOOD ORDERABLES Final R esult Performing Organization Address [facility] [place] [address] * (ABNORMAL) Hemoglobin total, pulmonary artery (05/09/2025 12:00 AM CDT) Hemoglobin total, PA 11.0(L) 13.0 - 17.5 g/dL Blood 05/09/2025 05/09/2025 12: 07 AM CDT Bar Gamble MD LAB BLOOD ORDERABLES Final R esult Performing Organization Address [facility] [place] [address] * (ABNORMAL) Lactate, whole blood (05/09/2025 12:00 AM CDT) Lactate, bld 0.6(L) 0.7 - 2.0 mmol/L Blood 05/09/2025 05/09/2025 12: 07 AM CDT us Bar Gamble MD LAB BLOOD ORDERABLES Final R esult Performing Organization Address [facility] de Phone Number [facility] [place] [address] * Antibody identification (05/08/2025 5:38 PM CDT) Antibody ID 1 Anti-CD38 Comment:Panreactive -CD38 on reagent RBCs reacting with anti-CD38 therapy. DTT treatment removes cell surface CD38 and allows detection of common clinically significant antibodies except those against Dilma antigens. TRANSFUSION 2015;[id number] Blood 05/08/2025 5:38 PM CDT 05/08/2025 5:38 PM CDT us Libia Suarez NP LAB BLOOD BANK TEST ORDERABLE S Final Result Performing Organization Address [facility] [place] [address] * Oxyhemoglobin, pulmonary artery (05/08/2025 4:22 PM CDT) Oxyhemoglobin, PA 55.6 % Comment: Interpretive Data No reference range established. Current interpretive data was last revised 2020. Blood 05/08/2025 4:22 PM CDT 05/08/2025 4:36 PM CDT us Bar Gamble MD LAB BLOOD ORDERABLES Final R esult Performing Organization Address [facility] Co de Phone Number [facility] [place] [employer] [place] [address] * (ABNORMAL) Hemoglobin total, pulmonary artery (05/08/2025 4:22 PM CDT) Hemoglobin total, PA 12.0(L) 13.0 - 17.5 g/dL Blood 05/08/2025 4:22 PM CDT 05/08/2025 4:36 PM CDT us Bar Gamble MD LAB BLOOD ORDERABLES Final R esult Performing Organization Address City/[facility] Co de Phone Number [facility] [place] [address] * (ABNORMAL) eGFR (05/08/2025 4:22 PM CDT) [...] ORDERABLES Final R esult DULCE MARIA [facility] [place] [address] * Lactate, whole blood (05/08/2025 4:22 PM CDT) Lactate, bld 0.7 0.7 - 2.0 mmol/L Blood 05/08/2025 4:22 PM CDT 05/08/2025 4:36 PM CDT Bar Gamble MD LAB BLOOD ORDERABLES Final R esult Performing Organization Address [facility] [place] [address] * (ABNORMAL) Type and screen (05/08/2025 4:22 PM CDT) Pathologist [facility] ABO Rh O Positive Poppy, indirect Positive(A) [facility] Blood 05/08/2025 4:22 PM CDT 05/08/2025 4:44 PM CDT Narrative [facility] - 05/08/2025 5:38 PM CDT Has the patient had Daratumumab or Isatuximab in the past 6 months?->Unknown Libia Suarez PROGRAM SUPPORT CLERK LAB BLOOD BANK TEST ORDERABLE S Final Result Performing Organization Address [facility] Co de Phone Number [facility] [place] [address] * Phosphorus (05/08/2025 4:22 PM CDT) Pathologist [facility] Phosphorus, pl 3.7 2.3 - 4.5 mg/dL Blood 05/08/2025 4:22 PM CDT 05/08/2025 4:35 PM CDT Bar Gamble MD LAB BLOOD ORDERABLES Final R esult Performing Organization Address [facility] Co de Phone Number [facility] [place] [address] * Magnesium (05/08/2025 4:22 PM CDT) Pathologist [facility] Magnesium 2.3 1.4 - 2.5 mg/dL Blood 05/08/2025 4:22 PM CDT 05/08/2025 4:35 PM CDT Bar Gamble MD LAB BLOOD ORDERABLES Final R esult DULCE MARIA [facility] Department [place] [address] * (ABNORMAL) Basic metabolic panel (05/08/2025 4:22 PM CDT) Sodium 136 135 - 145 mmol/L Potassium, pl 4.7 3.3 - 4.9 mmol/L [facility] Chloride 99 97 - 110 mmol/L [facility] CO2 26 22 - 32 mmol/L [facility] Anion gap 11 2 - 15 mmol/L [facility] BUN 36(H) 6 - 25 mg/dL [facility] Creatinine 1.37(H) 0.80 - 1.30 mg/dL [facility] Glucose 116 70 - 199 mg/dL [facility] Comment: Interpretive Data Fasting glucose >/= 126 [...] 2022. Calcium 9.0 8.5 - 10.3 mg/dL [facility] Blood 05/08/2025 4:22 PM CDT 05/08/2025 4:35 PM CDT Bar Gamble MD LAB BLOOD ORDERABLES Final R esult DULCE MARIA [facility] Department [place] [address] * Oxyhemoglobin, pulmonary artery (05/08/2025 8:21 AM CDT) Oxyhemoglobin, PA 58.3 % Comment: Interpretive Data No reference range established. Current interpretive data was last revised 2020. Blood 05/08/2025 8:21 AM CDT 05/08/2025 8:34 AM CDT us Bar Gamble MD LAB BLOOD ORDERABLES Final R esult Performing Organization Address [facility] Co de Phone Number [facility] [place] [address] * (ABNORMAL) Hemoglobin total, pulmonary artery (05/08/2025 8:21 AM CDT) Hemoglobin total, PA 11.9(L) 13.0 - 17.5 g/dL Blood 05/08/2025 8:21 AM CDT 05/08/2025 8:34 AM CDT us Bar Gamble MD LAB BLOOD ORDERABLES Final R esult Performing Organization Address [facility] Co de Phone Number [facility] [place] [address] * Lactate, whole blood (05/08/2025 8:21 AM CDT) Lactate, bld 0.9 0.7 - 2.0 mmol/L Blood 05/08/2025 8:21 AM CDT 05/08/2025 8:34 AM CDT us Bar Gamble MD LAB BLOOD ORDERABLES Final R esult Performing Organization Address [facility] Co de Phone Number [facility] [place] [address] * XR Chest 1 View (05/08/2025 5:48 AM CDT) Anatomical Region Laterality Modality Body, Chest N/A Digital Radiogra phy 05/08/2025 10:3 7 AM CDT Impressions 05/08/2025 11:06 AM CDT Comparison with 05/07/2020 5:33 AM. A right PICC catheter is in place with tip overlying superior vena cava. Right internal jugular Packwood-Jayne catheter tip remains in a right lower lobe segmental pulmonary artery. Retraction is recommended. Trace bilateral pleural effusions with associated atelectasis. No pneumothorax. Stable cardiac mediastinal silhouette. Findings concerning Packwood-Jayne catheter position were communicated to Dr. Acosta [...] overlying superior vena cava. Right internal jugular Packwood-Jayne catheter tip remains in a right lower lobe segmental pulmonary artery. Retraction is recommended. Trace bilateral pleural effusions with associated atelectasis. No pneumothorax. Stable cardiac mediastinal silhouette. Findings concerning Packwood-Jayne catheter position were communicated to Dr. Acosta [...] ORDERABLES Final R esult Performing Organization Address City/[facility] Co de Phone Number [facility] Department [place] [address] * (ABNORMAL) Hemoglobin total, pulmonary artery (05/08/2025 5:29 AM CDT) Hemoglobin total, PA 11.3(L) 13.0 - 17.5 g/dL Blood 05/08/2025 5:29 AM CDT 05/08/2025 5:46 AM CDT Bar Gamble MD LAB BLOOD ORDERABLES Final R esult Performing Organization Address City/[facility] Co de Phone Number [facility] Department [place] [address] * eGFR (05/08/2025 5:29 AM CDT) eGFR [...] ORDERABLES Final R esult Performing Organization Address City/[facility] Co de Phone Number [facility] Department [place] [address] * Lactate, whole blood (05/08/2025 5:29 AM CDT) Lactate, bld 0.7 0.7 - 2.0 mmol/L Blood 05/08/2025 5:29 AM CDT 05/08/2025 5:46 AM CDT us Zev Cowart MD PhD LAB BLOOD ORDERABLES Fi nal Result Performing Organization Address [facility] Co de Phone Number [facility] Department [place] [address] * (ABNORMAL) aPTT (05/08/2025 5:29 AM CDT) aPTT 66(H) 28 - 38 sec Comment: Interpretive Data Heparin therapeutic range: 66.0 - 100.0 seconds. Range based on correlation with therapeutic heparin activity range of 0.3 - 0.7 Units/mL. Current interpretive data was last revised on 2023. Blood 05/08/2025 5:29 AM CDT 05/08/2025 5:46 AM CDT Narrative [facility] - 05/08/2025 6:18 AM CDT STAT PTT [...] ORDERABLES Final Re sult Performing Organization Address [facility]/ZIP Co de Phone Number [facility] Department [place] [address] * (ABNORMAL) CBC without differential (05/08/2025 5:29 AM CDT) [facility] WBC 8.89 3.80 - 9.90 K/cumm Hgb 11.0(L) 13.0 - 17.5 g/dL [facility] Hct 33.6(L) 38.9 - 50.3 % [facility] Plt 187 150 - 400 K/cumm [facility] MPV 11.9 9.1 - 12.3 fL [facility] RBC 4.03(L) 4.30 - 5.80 M/cumm [facility] MCV 83.4 81.3 - 96.4 fL [facility] MCH 27.3 27.1 - 33.3 pg [facility] MCHC 32.7 32.3 - 35.7 g/dL [facility] RDW CV 15.5(H) 11.1 - 14.9 % [facility] RDW SD 47.6 35.7 - 48.1 fL [facility] NRBC abs 0.00 0.00 - 0.01 K/cumm [facility] Blood 05/08/2025 5:29 AM CDT 05/08/2025 5:46 AM CDT us Bar Gamble MD LAB BLOOD ORDERABLES Final R esult Performing Organization Address City/[facility]/ZIP Co de Phone Number [facility] Department [place] [address] * Phosphorus (05/08/2025 5:29 AM CDT) [facility] Phosphorus, pl 3.2 2.3 - 4.5 mg/dL Blood 05/08/2025 5:29 AM CDT 05/08/2025 5:46 AM CDT Bar Gamble MD LAB BLOOD ORDERABLES Final R esult Performing Organization Address City/[facility]/ZIP Co de Phone Number [facility] [place] [address] * Magnesium (05/08/2025 5:29 AM CDT) Pathologist [facility] Magnesium 2.2 1.4 - 2.5 mg/dL Blood 05/08/2025 5:29 AM CDT 05/08/2025 5:46 AM CDT Bar Gamble MD LAB BLOOD ORDERABLES Final R esult Performing Organization Address [facility] de Phone Number [facility] [place] [address] * (ABNORMAL) Hepatic function panel (05/08/2025 5:29 AM CDT) Bilirubin, total 0.8 0.1 - 1.2 mg/dL Bilirubin, direct 0.4(H) 0.1 - 0.3 mg/dL [facility] Protein, pl 6.2(L) 6.5 - 8.5 g/dL [facility] Albumin 3.8 3.5 - 5.0 g/dL [facility] Alk phos 258(H) 40 - 130 Units/L [facility] ALT 26 7 - 55 Units/L [facility] AST 26 10 - 50 Units/L [facility] Blood 05/08/2025 5:29 AM CDT 05/08/2025 5:46 AM CDT Bar Gamble MD LAB BLOOD ORDERABLES Final R esult Performing Organization Address [facility] Co de Phone Number [facility] Department [place] [address] * (ABNORMAL) Basic metabolic panel (05/08/2025 5:29 AM CDT) Pathologist [facility] Sodium 136 135 - 145 mmol/L Potassium, pl 3.8 3.3 - 4.9 mmol/L [facility] Chloride 98 97 - 110 mmol/L [facility] CO2 30 22 - 32 mmol/L [facility] Anion gap 8 2 - 15 mmol/L [facility] BUN 39(H) 6 - 25 mg/dL [facility] Creatinine 1.33(H) 0.80 - 1.30 mg/dL [facility] Glucose 109 70 - 199 mg/dL [facility] Comment: Interpretive Data Fasting glucose >/= 126 [...] 2022. Calcium 9.4 8.5 - 10.3 mg/dL [facility] Blood 05/08/2025 5:29 AM CDT 05/08/2025 5:46 AM CDT Bar Gamble MD LAB BLOOD ORDERABLES Final R esult [facility] [place] [address] * Oxyhemoglobin, pulmonary artery (05/07/2025 11:15 PM CDT) Pathologist [facility] Oxyhemoglobin, PA 66.3 % Comment: Interpretive Data No reference range established. Current interpretive data was last revised 2020. Blood 05/07/2025 11:1 5 PM CDT 05/08/2025 12:22 AM CDT us Bar Gamble MD LAB BLOOD ORDERABLES Final R esult Performing Organization Address [facility] Co de Phone Number [facility] [place] [address] * (ABNORMAL) Hemoglobin total, pulmonary artery (05/07/2025 11:15 PM CDT) Hemoglobin total, PA 12.2(L) 13.0 - 17.5 g/dL Blood 05/07/2025 11:1 5 PM CDT 05/08/2025 12:22 AM CDT us Bar Gamble MD LAB BLOOD ORDERABLES Final R esult Performing Organization Address [facility] Co de Phone Number [facility] [place] [address] * Lactate, whole blood (05/07/2025 11:15 PM CDT) Lactate, bld 0.9 0.7 - 2.0 mmol/L Blood 05/07/2025 11:1 5 PM CDT 05/08/2025 12:22 AM CDT us Bar Gamble MD LAB BLOOD ORDERABLES Final R esult Performing Organization Address [facility] Co de Phone Number [facility] [place] [address] * Oxyhemoglobin, pulmonary artery (05/07/2025 4:15 PM CDT) Oxyhemoglobin, PA 57.4 % Comment: Interpretive Data No reference range established. Current interpretive data was last revised 2020. Blood 05/07/2025 4:15 PM CDT 05/07/2025 4:23 PM CDT us Bar Gamble MD LAB BLOOD ORDERABLES Final R esult DULCE MARIA [facility] Department [place] [address] * (ABNORMAL) Hemoglobin total, pulmonary artery (05/07/2025 4:15 PM CDT) Hemoglobin total, PA 12.6(L) 13.0 - 17.5 g/dL Blood 05/07/2025 4:15 PM CDT 05/07/2025 4:23 PM CDT us Bar Gamble MD LAB BLOOD ORDERABLES Final R esult Performing Organization Address [facility] Co de Phone Number [employer] [facility] [place] [address] * eGFR (05/07/2025 4:15 PM CDT) eGFR 64 >=60 mL/min/1. 73 [...] ORDERABLES Final R esult Performing Organization Address City/[facility] Co de Phone Number [facility] [place] [address] * Lactate, whole blood (05/07/2025 4:15 PM CDT) Lactate, bld 1.2 0.7 - 2.0 mmol/L Blood 05/07/2025 4:15 PM CDT 05/07/2025 4:23 PM CDT Bar Gamble MD LAB BLOOD ORDERABLES Final R esult Performing Organization Address [facility] Co de Phone Number [facility] [place] [address] * Phosphorus (05/07/2025 4:15 PM CDT) Phosphorus, pl 3.7 2.3 - 4.5 mg/dL Blood 05/07/2025 4:15 PM CDT 05/07/2025 4:34 PM CDT us Bar Gamble MD LAB BLOOD ORDERABLES Final R esult Performing Organization Address [facility] Co de Phone Number [facility] Department [place] [address] * Magnesium (05/07/2025 4:15 PM CDT) Magnesium 2.2 1.4 - 2.5 mg/dL Blood 05/07/2025 4:15 PM CDT 05/07/2025 4:34 PM CDT Bar Gamble MD LAB BLOOD ORDERABLES Final R esult Performing Organization Address [facility] Co de Phone Number [facility] Department [place] [address] * (ABNORMAL) Basic metabolic panel (05/07/2025 4:15 PM CDT) [facility] Sodium 134(L) 135 - 145 mmol/L Potassium, pl 4.3 3.3 - 4.9 mmol/L [facility] Chloride 95(L) 97 - 110 mmol/L [facility] CO2 28 22 - 32 mmol/L [facility] Anion gap 11 2 - 15 mmol/L [facility] BUN 40(H) 6 - 25 mg/dL [facility] Creatinine 1.28 0.80 - 1.30 mg/dL [facility] Glucose 176 70 - 199 mg/dL [facility] Comment: Interpretive Data Fasting glucose >/= 126 [...] 2022. Calcium 9.6 8.5 - 10.3 mg/dL [facility] Blood 05/07/2025 4:15 PM CDT 05/07/2025 4:34 PM CDT us Bar Gamble MD LAB BLOOD ORDERABLES Final R esult [facility] [place] [address] * MID Lab Inf Prevention Critical Callback [place]in (05/07/2025 11:38 AM CDT) [facility] TestName Tai mak Date Notified [id number] [facility] Time Notified 918 [facility] Called/Read Back Bebo Avalos [employer] [facility] Called By Pardeep العراقي [facility] Axilla/Groin 05/07/2025 11:3 8 AM CDT 05/07/2025 11:59 AM CDT Sathish Gongora MD LAB MICROBIOLOGY - GENERAL ORDER LINH Final Result Performing Organization Address City/[facility] Co de Phone Number [facility] [place] [address] * (ABNORMAL) Infection Prevention Shady auris PCR, surveillance Axilla/Groin (05/07/2025 11:38 AM CDT) Shady auris DNA Detected( A) Not Detected [facility] Comment: Interpretive Data Testing performed by [facility] Molecular Infectious Disease Laboratory using the Lucas carlos [id number] Shady auris assay. This assay detects DNA from Shady auris using Real-Time PCR. This assay is laboratory developed and is not cleared by the [facility] Food and Drug Administration. The performance characteristics have been verified by the [facility] Molecular Infectious Disease Laboratory. Axilla/Groin 05/07/2025 11:3 8 AM CDT 05/07/2025 11:59 AM CDT Sathish Gongora MD LAB MICROBIOLOGY - GENERAL ORDER LINH Final Result Performing Organization Address [facility] Co de Phone Number [facility] Department [place] [address] [facility] * Shady (yeast) culture Axilla/Groin (05/07/2025 11:38 AM CDT) Report Final Report: No Growth of Shady auris Culture reflexed from positive Shady auris PCR for epidemiological purposes. Not billed to patient. Axilla/Groin 05/07/2025 11:3 8 AM CDT 05/08/2025 8:54 AM CDT Narrative DULCE MARIA ARANDA - 05/15/2025 1:45 PM CDT Reflex culture ordered based upon C AURIS PCR result. Interpretation data: This culture is NOT intended for the detection of filamentous fungi, endemic mycosis, or Cryptococcus. If detected, yeast will be reported and identified. Routine susceptibility is not performed, but if required, please contact the Microbiology Laboratory at . us Sathish Gongora MD LAB MICROBIOLOGY - GENERAL ORDER LINH Final Result Performing Organization Address [facility] Co de Phone Number [facility] [place] [address] * Oxyhemoglobin, pulmonary artery (05/07/2025 11:34 AM CDT) Oxyhemoglobin, PA 50.1 % Comment: Interpretive Data No reference range established. Current interpretive data was last revised 2020. Blood 05/07/2025 11:3 4 AM CDT 05/07/2025 11:47 AM CDT us Bar Gamble MD LAB BLOOD ORDERABLES Final R esult Performing Organization Address [facility] [place] [address] * (ABNORMAL) Hemoglobin total, pulmonary artery (05/07/2025 11:34 AM CDT) Hemoglobin total, PA 12.2(L) 13.0 - 17.5 g/dL Blood 05/07/2025 11:3 4 AM CDT 05/07/2025 11:47 AM CDT us Bar Gamble MD LAB BLOOD ORDERABLES Final R esult Performing Organization Address [facility] Co de Phone Number [facility] [place] [address] * Potassium, whole blood (05/07/2025 11:34 AM CDT) Potassium, bld 4.1 3.3 - 4.9 mmol/L Blood 05/07/2025 11:3 4 AM CDT 05/07/2025 11:47 AM CDT Bar Gamble MD LAB BLOOD ORDERABLES Final R esult Performing Organization Address [facility] de Phone Number [facility] Department [place] [address] * Lactate, whole blood (05/07/2025 11:34 AM CDT) Lactate, bld 1.0 0.7 - 2.0 mmol/L Blood 05/07/2025 11:3 4 AM CDT 05/07/2025 11:47 AM CDT Bar Gamble MD LAB BLOOD ORDERABLES Final R esult Performing Organization Address [facility] de Phone Number [facility] Department [place] [address] * XR Chest 1 View (05/07/2025 6:22 AM CDT) Anatomical Region Laterality Modality Body, Chest N/A Digital Radiogra phy 05/07/2025 8:56 AM CDT Impressions 05/07/2025 10:26 AM CDT The current study is compared with the prior radiograph dated 2025. A Packwood-Jayne catheter is in place, tip overlies the [...] with the prior radiograph dated 2025. A Packwood-Jayne catheter is in place, tip overlies the [...] 4:25 AM CDT 05/07/2025 4:52 AM CDT Elmira العراقي [facility] - 05/07/2025 5:01 AM CDT STAT PTT [...] peripherally (not from CVC). us Libia Suarez PROGRAM SUPPORT CLERK LAB BLOOD ORDERABLES Final Re sult Performing Organization Address [facility] Co de Phone Number [facility] [place] [address] * Oxyhemoglobin, pulmonary artery (05/07/2025 4:23 AM CDT) Oxyhemoglobin, PA 61.2 % Comment: Interpretive Data No reference range established. Current interpretive data was last revised 2020. Blood 05/07/2025 4:23 AM CDT 05/07/2025 4:38 AM CDT us Bar Gamble MD LAB BLOOD ORDERABLES Final R esult Performing Organization Address [facility] Co de Phone Number [facility] [place] [address] * (ABNORMAL) Hemoglobin total, pulmonary artery (05/07/2025 4:23 AM CDT) Hemoglobin total, PA 11.3(L) 13.0 - 17.5 g/dL Blood 05/07/2025 4:23 AM CDT 05/07/2025 4:38 AM CDT us Bar Gamble MD LAB BLOOD ORDERABLES Final R esult Performing Organization Address [facility] Co de Phone Number [facility] [place] [address] * (ABNORMAL) eGFR (05/07/2025 4:23 AM CDT) [...] ORDERABLES Final R esult Performing Organization Address City/[facility]/ZIP Co de Phone Number [facility] [place] [address] * Lactate, whole blood (05/07/2025 4:23 AM CDT) Pathologist [facility] Lactate, bld 0.7 0.7 - 2.0 mmol/L Blood 05/07/2025 4:23 AM CDT 05/07/2025 4:38 AM CDT us Bar Gamble MD LAB BLOOD ORDERABLES Final R esult [facility] [place] [address] * (ABNORMAL) CBC without differential (05/07/2025 4:23 AM CDT) Pathologist [facility] WBC 9.14 3.80 - 9.90 K/cumm Hgb 11.0(L) 13.0 - 17.5 g/dL [facility] Hct 32.7(L) 38.9 - 50.3 % [facility] Plt 191 150 - 400 K/cumm [facility] MPV 12.3 9.1 - 12.3 fL [facility] RBC 3.96(L) 4.30 - 5.80 M/cumm [facility] MCV 82.6 81.3 - 96.4 fL [facility] MCH 27.8 27.1 - 33.3 pg [facility] MCHC 33.6 32.3 - 35.7 g/dL [facility] RDW CV 15.5(H) 11.1 - 14.9 % [facility] RDW SD 47.0 35.7 - 48.1 fL [facility] NRBC abs 0.00 0.00 - 0.01 K/cumm [facility] Blood 05/07/2025 4:23 AM CDT 05/07/2025 5:06 AM CDT us Bar Gamble MD LAB BLOOD ORDERABLES Final R esult Performing Organization Address City/[facility]/ZIP Co de Phone Number [facility] [place] [address] * Phosphorus (05/07/2025 4:23 AM CDT) Phosphorus, pl 3.6 2.3 - 4.5 mg/dL Blood 05/07/2025 4:23 AM CDT 05/07/2025 5:06 AM CDT Bar Gamble MD LAB BLOOD ORDERABLES Final R esult [facility] [place] [address] * Magnesium (05/07/2025 4:23 AM CDT) Magnesium 2.1 1.4 - 2.5 mg/dL Blood 05/07/2025 4:23 AM CDT 05/07/2025 5:06 AM CDT Bar Gamble MD LAB BLOOD ORDERABLES Final R esult Performing Organization Address City/[facility]/ZIP Co de Phone Number [facility] [place] [address] * (ABNORMAL) Hepatic function panel (05/07/2025 4:23 AM CDT) Pathologist [facility] Bilirubin, total 0.7 0.1 - 1.2 mg/dL Bilirubin, direct 0.4(H) 0.1 - 0.3 mg/dL [facility] Protein, pl 6.1(L) 6.5 - 8.5 g/dL [facility] Albumin 3.9 3.5 - 5.0 g/dL [facility] Alk phos 245(H) 40 - 130 Units/L [facility] ALT 23 7 - 55 Units/L [facility] AST 22 10 - 50 Units/L [facility] Blood 05/07/2025 4:23 AM CDT 05/07/2025 5:06 AM CDT Bar Gamble MD LAB BLOOD ORDERABLES Final R esult Performing Organization Address City/[facility] Co de Phone Number [facility] [place] [address] * (ABNORMAL) Basic metabolic panel (05/07/2025 4:23 AM CDT) Pathologist [facility] Sodium 138 135 - 145 mmol/L Potassium, pl 3.3 3.3 - 4.9 mmol/L [facility] Chloride 98 97 - 110 mmol/L [facility] CO2 32 22 - 32 mmol/L [facility] Anion gap 8 2 - 15 mmol/L [facility] BUN 42(H) 6 - 25 mg/dL [facility] Creatinine 1.39(H) 0.80 - 1.30 mg/dL [facility] Glucose 117 70 - 199 mg/dL [facility] Comment: Interpretive Data Fasting glucose >/= 126 [...] 2022. Calcium 9.4 8.5 - 10.3 mg/dL [facility] Blood 05/07/2025 4:23 AM CDT 05/07/2025 5:06 AM CDT Bar Gamble MD LAB BLOOD ORDERABLES Final R esult Performing Organization Address [facility] de Phone Number [facility] [place] [address] * Oxyhemoglobin, pulmonary artery (2025 11:18 PM CDT) Oxyhemoglobin, PA 68.7 % Comment: Interpretive Data No reference range established. Current interpretive data was last revised 2020. Blood 2025 11:1 8 PM CDT 2025 11:29 PM CDT us Bar Gamble MD LAB BLOOD ORDERABLES Final R esult Performing Organization Address [facility] de Phone Number [facility] [place] [address] * (ABNORMAL) Hemoglobin total, pulmonary artery (2025 11:18 PM CDT) Hemoglobin total, PA 11.3(L) 13.0 - 17.5 g/dL Blood 2025 11:1 8 PM CDT 2025 11:29 PM CDT Bar Gamble MD LAB BLOOD ORDERABLES Final R esult Performing Organization Address [facility]/ZIP Co de Phone Number [facility] [place] [address] * Lactate, whole blood (2025 11:18 PM CDT) Lactate, bld 0.7 0.7 - 2.0 mmol/L Blood 2025 11:1 8 PM CDT 2025 11:29 PM CDT us Bar Gamble MD LAB BLOOD ORDERABLES Final R esult Performing Organization Address [facility] de Phone Number [facility] [place] [address] * Oxyhemoglobin, pulmonary artery (2025 4:44 PM CDT) Oxyhemoglobin, PA 58.1 % Comment: Interpretive Data No reference range established. Current interpretive data was last revised 2020. Blood 2025 4:44 PM CDT 2025 4:52 PM CDT us Bar Gamble MD LAB BLOOD ORDERABLES Final R esult Performing Organization Address [facility] Co de Phone Number [facility] [place] [address] * (ABNORMAL) Hemoglobin total, pulmonary artery (2025 4:44 PM CDT) Hemoglobin total, PA 12.2(L) 13.0 - 17.5 g/dL Blood 2025 4:44 PM CDT 2025 4:52 PM CDT us Bar Gamble MD LAB BLOOD ORDERABLES Final R esult Performing Organization Address [facility] Co de Phone Number [facility] [place] [address] * (ABNORMAL) eGFR (2025 4:44 PM CDT) [...] ORDERABLES Final R esult Performing Organization Address City/[facility]/ZIP Co de Phone Number [facility] [place] [address] * Lactate, whole blood (2025 4:44 PM CDT) Lactate, bld 0.9 0.7 - 2.0 mmol/L Blood 2025 4:44 PM CDT 2025 4:52 PM CDT Bar Gamble MD LAB BLOOD ORDERABLES Final R esult [facility] [place] [address] * Phosphorus (2025 4:44 PM CDT) [facility] Phosphorus, pl 3.8 2.3 - 4.5 mg/dL Blood 2025 4:44 PM CDT 2025 5:05 PM CDT Bar Gamble MD LAB BLOOD ORDERABLES Final R esult Performing Organization Address City/[facility]/[place] [address] * Magnesium (2025 4:44 PM CDT) [facility] Magnesium 2.1 1.4 - 2.5 mg/dL Blood 2025 4:44 PM CDT 2025 5:05 PM CDT Bar Gamble MD LAB BLOOD ORDERABLES Final R esult Performing Organization Address City/[facility] de Phone Number [facility] [place] [address] * (ABNORMAL) Basic metabolic panel (2025 4:44 PM CDT) [facility] Sodium 138 135 - 145 mmol/L Potassium, pl 4.0 3.3 - 4.9 mmol/L [facility] Chloride 99 97 - 110 mmol/L [facility] CO2 30 22 - 32 mmol/L [facility] Anion gap 9 2 - 15 mmol/L [facility] BUN 43(H) 6 - 25 mg/dL [facility] Creatinine 1.42(H) 0.80 - 1.30 mg/dL [facility] Glucose 136 70 - 199 mg/dL [facility] Comment: Interpretive Data Fasting glucose >/= 126 [...] 2022. Calcium 9.1 8.5 - 10.3 mg/dL [facility] Blood 2025 4:44 PM CDT 2025 5:05 PM CDT us Bar Gamble MD LAB BLOOD ORDERABLES Final R esult [facility] [place] [address] * XR Chest 1 View (2025 11:00 AM CDT) Anatomical Region Laterality Modality Body, Chest N/A Digital Radiogra phy 2025 11:5 9 AM CDT Impressions 2025 12:30 PM CDT The current study is compared with the prior radiograph dated 2025. A Packwood-Jayne catheter is in place, tip overlies a branch of the right lower lobe pulmonary artery, similar to prior. Right upper extremity peripherally inserted central catheter tip projects over the superior vena cava. Trace bilateral pleural effusions, similar to prior. No confluent pulmonary consolidation. No pneumothorax. Unchanged cardiac and mediastinal silhouette. Findings regarding the Packwood-Jayne position were discussed with Dr. Mitchell by Dr. Landry on 2025 at 11:57 AM via [employer] message. Dictated by: Dominic Landry MD The [...] with the prior radiograph dated 2025. A Packwood-Jayne catheter is in place, tip overlies a branch of the right lower lobe pulmonary artery, similar to prior. Right upper extremity peripherally inserted central catheter tip projects over the superior vena cava. Trace bilateral pleural effusions, similar to prior. No confluent pulmonary consolidation. No pneumothorax. Unchanged cardiac and mediastinal silhouette. Findings regarding the Packwood-Jayne position were discussed with Dr. Mitchell by Dr. Landry on 2025 at 11:57 AM via [employer] message. Dictated by: Dominic Landry MD The [...] BLOOD ORDERABLES Final R esult DULCE MARIA [facility] [place] [address] * (ABNORMAL) Hemoglobin total, pulmonary artery (2025 8:17 AM CDT) Hemoglobin total, PA 12.6(L) 13.0 - 17.5 g/dL Blood 2025 8:17 AM CDT 2025 8:35 AM CDT us Bar Gamble MD LAB BLOOD ORDERABLES Final R esult Performing Organization Address [facility] Co de Phone Number [facility] [place] [address] * Potassium, whole blood (2025 8:17 AM CDT) Potassium, bld 4.3 3.3 - 4.9 mmol/L Blood 2025 8:17 AM CDT 2025 8:35 AM CDT us Bar Gamble MD LAB BLOOD ORDERABLES Final R esult Performing Organization Address [facility] de Phone Number [facility] [place] [address] * (ABNORMAL) Lactate, whole blood (2025 8:17 AM CDT) Lactate, bld 2.7(H) 0.7 - 2.0 mmol/L Blood 2025 8:17 AM CDT 2025 8:35 AM CDT us Bar Gamble MD LAB BLOOD ORDERABLES Final R esult Performing Organization Address [facility] Co de Phone Number [facility] [place] [address] * XR Chest 1 View (2025 6:46 AM CDT) Anatomical Region Laterality Modality Body, Chest N/A Computed Radiogr aphy 2025 9:07 AM CDT Impressions 2025 9:10 AM CDT Comparison to 05/05/2025. Right peripherally inserted central venous catheter tip at the superior vena cava. A Packwood-Jayne catheter is in place, tip overlies the [...] tip at the superior vena cava. A Packwood-Jayne catheter is in place, tip overlies the [...] 4:28 AM CDT 2025 4:55 AM CDT Elmira العر[facility] - 2025 5:04 AM CDT STAT PTT [...] ORDERABLES Final Re sult Performing Organization Address [facility] Co de Phone Number [facility] [employer] [place] [address] * Oxyhemoglobin, pulmonary artery (2025 4:27 AM CDT) Oxyhemoglobin, PA 64.4 % Comment: Interpretive Data No reference range established. Current interpretive data was last revised 2020. Blood 2025 4:27 AM CDT 2025 4:41 AM CDT us Bar Gamble MD LAB BLOOD ORDERABLES Final R esult Performing Organization Address [facility] [place] [address] * (ABNORMAL) Hemoglobin total, pulmonary artery (2025 4:27 AM CDT) Hemoglobin total, PA 11.4(L) 13.0 - 17.5 g/dL Blood 2025 4:27 AM CDT 2025 4:41 AM CDT us Bar Gamble MD LAB BLOOD ORDERABLES Final R esult Performing Organization Address [facility] Co de Phone Number [facility] [place] [address] * (ABNORMAL) eGFR (2025 4:27 AM CDT) [...] BLOOD ORDERABLES Final R esult DULCE MARIA [facility] [place] [address] * Lactate, whole blood (2025 4:27 AM CDT) Lactate, bld 0.7 0.7 - 2.0 mmol/L Blood 2025 4:27 AM CDT 2025 4:41 AM CDT us Bar Gamble MD LAB BLOOD ORDERABLES Final R esult Performing Organization Address City/[facility]/ZIP Co de Phone Number DULCE MARIA [facility] Department [place] [address] * (ABNORMAL) CBC without differential (2025 4:27 AM CDT) [facility] WBC 9.96(H) 3.80 - 9.90 K/cumm Hgb 10.8(L) 13.0 - 17.5 g/dL [facility] Hct 32.7(L) 38.9 - 50.3 % [facility] Plt 187 150 - 400 K/cumm [facility] MPV 11.5 9.1 - 12.3 fL [facility] RBC 3.94(L) 4.30 - 5.80 M/cumm [facility] MCV 83.0 81.3 - 96.4 fL [facility] MCH 27.4 27.1 - 33.3 pg [facility] MCHC 33.0 32.3 - 35.7 g/dL [facility] RDW CV 15.4(H) 11.1 - 14.9 % [facility] RDW SD 47.0 35.7 - 48.1 fL [facility] NRBC abs 0.00 0.00 - 0.01 K/cumm [facility] Blood 2025 4:27 AM CDT 2025 4:49 AM CDT us Bar Gamble MD LAB BLOOD ORDERABLES Final R esult Performing Organization Address City/[facility] Co de Phone Number [facility] [place] [address] * Phosphorus (2025 4:27 AM CDT) [facility] Phosphorus, pl 3.7 2.3 - 4.5 mg/dL Blood 2025 4:27 AM CDT 2025 4:49 AM CDT us Bar Gamble MD LAB BLOOD ORDERABLES Final R esult Performing Organization Address City/[facility] Co de Phone Number [facility] [place] [address] * Magnesium (2025 4:27 AM CDT) [facility] Magnesium 2.0 1.4 - 2.5 mg/dL Blood 2025 4:27 AM CDT 2025 4:49 AM CDT Bar Gamble MD LAB BLOOD ORDERABLES Final R [facility] Performing Organization Address [facility] Co de Phone Number [facility] [place] [address] * (ABNORMAL) Hepatic function panel (2025 4:27 AM CDT) [facility] Bilirubin, total 0.6 0.1 - 1.2 mg/dL Bilirubin, direct <0.2 0.1 - 0.3 mg/dL [facility] Comment:Reviewed Protein, pl 5.9(L) 6.5 - 8.5 g/dL [facility] Albumin 3.9 3.5 - 5.0 g/dL [facility] Alk phos 247(H) 40 - 130 Units/L [facility] ALT 24 7 - 55 Units/L [facility] AST 29 10 - 50 Units/L [facility] Blood 2025 4:27 AM CDT 2025 4:49 AM CDT Bar Gamble MD LAB BLOOD ORDERABLES Final R [facility] Performing Organization Address [facility] de Phone Number [facility] [place] [address] * (ABNORMAL) Basic metabolic panel (2025 4:27 AM CDT) [facility] Sodium 135 135 - 145 mmol/L Potassium, pl 3.6 3.3 - 4.9 mmol/L [facility] Chloride 97 97 - 110 mmol/L [facility] CO2 27 22 - 32 mmol/L [facility] Anion gap 11 2 - 15 mmol/L [facility] BUN 49(H) 6 - 25 mg/dL [facility] Creatinine 1.43(H) 0.80 - 1.30 mg/dL [facility] Glucose 115 70 - 199 mg/dL [facility] Comment: Interpretive Data Fasting glucose >/= 126 [...] 2022. Calcium 9.0 8.5 - 10.3 mg/dL [facility] Blood 2025 4:27 AM CDT 2025 4:49 AM CDT us Bar Gamble MD LAB BLOOD ORDERABLES Final R esult [facility] [place] [address] * Antibody identification (05/05/2025 11:27 PM CDT) Pathologist [facility] Antibody ID 1 Anti-CD38 Comment:Panreactive -CD38 on reagent RBCs reacting with anti-CD38 therapy. DTT treatment removes cell surface CD38 and allows detection of common clinically significant antibodies except those against [place] antigens. TRANSFUSION 2015;55;[id number] Blood 05/05/2025 11:2 7 PM CDT 05/05/2025 11:27 PM CDT us Libia Suarez NP LAB BLOOD BANK TEST ORDERABLE S Final Result [facility] [place] [address] * Oxyhemoglobin, pulmonary artery (05/05/2025 10:09 PM CDT) Pathologist [facility] Oxyhemoglobin, PA 46.3 % Comment: Interpretive Data No reference range established. Current interpretive data was last revised 2020. Blood 05/05/2025 10:0 9 PM CDT 05/05/2025 10:20 PM CDT us Bar Gamble MD LAB BLOOD ORDERABLES Final R esult Performing Organization Address City/[facility] Co de Phone Number [facility] [place] [address] * (ABNORMAL) Hemoglobin total, pulmonary artery (05/05/2025 10:09 PM CDT) Pathologist [facility] Hemoglobin total, PA 12.7(L) 13.0 - 17.5 g/dL Blood 05/05/2025 10:0 9 PM CDT 05/05/2025 10:20 PM CDT us Bar Gamble MD LAB BLOOD ORDERABLES Final R esult Performing Organization Address [facility] Co de Phone Number [facility] Department [place] [address] * Lactate, whole blood (05/05/2025 10:09 PM CDT) Pathologist [facility] Lactate, bld 1.8 0.7 - 2.0 mmol/L Blood 05/05/2025 10:0 9 PM CDT 05/05/2025 10:20 PM CDT us Bar Gamble MD LAB BLOOD ORDERABLES Final R esult Performing Organization Address City/[facility] Co de Phone Number [facility] [place] [address] * (ABNORMAL) Type and screen (05/05/2025 10:09 PM CDT) Pathologist [facility] ABO Rh O Positive Poppy, indirect Positive(A) [facility] Blood 05/05/2025 10:0 9 PM CDT 05/05/2025 10:26 PM CDT Narrative [facility] - 05/05/2025 11:27 PM CDT Has the patient had Daratumumab or Isatuximab in the past 6 months?->Unknown us Libia Suarez PROGRAM SUPPORT CLERK LAB BLOOD BANK TEST ORDERABLE S Final Result Performing Organization Address [facility] [place] [address] * Oxyhemoglobin, pulmonary artery (05/05/2025 4:55 PM CDT) Oxyhemoglobin, PA 58.3 % Comment: Interpretive Data No reference range established. Current interpretive data was last revised 2020. Blood 05/05/2025 4:55 PM CDT 05/05/2025 5:12 PM CDT us Bar Gamble MD LAB BLOOD ORDERABLES Final R esult Performing Organization Address [facility] Co de Phone Number [facility] [place] [address] * (ABNORMAL) Hemoglobin total, pulmonary artery (05/05/2025 4:55 PM CDT) Hemoglobin total, PA 12.0(L) 13.0 - 17.5 g/dL Blood 05/05/2025 4:55 PM CDT 05/05/2025 5:12 PM CDT us Bar Gamble MD LAB BLOOD ORDERABLES Final R esult Performing Organization Address [facility] Co de Phone Number [facility] [place] [address] * (ABNORMAL) eGFR (05/05/2025 4:55 PM CDT) [...] ORDERABLES Final R esult Performing Organization Address City/[facility]/ZIP Co de Phone Number [facility] [place] [address] * Lactate, whole blood (05/05/2025 4:55 PM CDT) Lactate, bld 0.7 0.7 - 2.0 mmol/L Blood 05/05/2025 4:55 PM CDT 05/05/2025 5:12 PM CDT us Bar Gamble MD LAB BLOOD ORDERABLES Final R esult Performing Organization Address City/[facility] Co de Phone Number [facility] Department [place] [address] * Phosphorus (05/05/2025 4:55 PM CDT) [facility] Phosphorus, pl 4.5 2.3 - 4.5 mg/dL Blood 05/05/2025 4:55 PM CDT 05/05/2025 5:19 PM CDT Bar Gamble MD LAB BLOOD ORDERABLES Final R esult Performing Organization Address [facility] Co de Phone Number [facility] [place] [address] * Magnesium (05/05/2025 4:55 PM CDT) [facility] Magnesium 2.1 1.4 - 2.5 mg/dL Blood 05/05/2025 4:55 PM CDT 05/05/2025 5:19 PM CDT Bar Gamble MD LAB BLOOD ORDERABLES Final R [facility] Performing Organization Address [facility] de Phone Number [facility] [place] [address] * (ABNORMAL) Basic metabolic panel (05/05/2025 4:55 PM CDT) [facility] Sodium 136 135 - 145 mmol/L Potassium, pl 3.9 3.3 - 4.9 mmol/L [facility] Chloride 95(L) 97 - 110 mmol/L [facility] CO2 30 22 - 32 mmol/L [facility] Anion gap 11 2 - 15 mmol/L [facility] BUN 45(H) 6 - 25 mg/dL [facility] Creatinine 1.66(H) 0.80 - 1.30 mg/dL [facility] Glucose 121 70 - 199 mg/dL [facility] Comment: Interpretive Data Fasting glucose >/= 126 [...] 2022. Calcium 9.2 8.5 - 10.3 mg/dL [facility] Blood 05/05/2025 4:55 PM CDT 05/05/2025 5:19 PM CDT Bar Gamble MD LAB BLOOD ORDERABLES Final R esult Performing Organization Address [facility] Co de Phone Number [facility] [place] [address] * Oxyhemoglobin, pulmonary artery (05/05/2025 11:54 AM CDT) Oxyhemoglobin, PA 65.9 % Comment: Interpretive Data No reference range established. Current interpretive data was last revised 2020. Blood 05/05/2025 11:5 4 AM CDT 05/05/2025 12:04 PM CDT Bar Gamble MD LAB BLOOD ORDERABLES Final R esult Performing Organization Address [facility] Co de Phone Number [facility] [place] [address] * (ABNORMAL) Hemoglobin total, pulmonary artery (05/05/2025 11:54 AM CDT) Hemoglobin total, PA 12.0(L) 13.0 - 17.5 g/dL Blood 05/05/2025 11:5 4 AM CDT 05/05/2025 12:04 PM CDT us Bar Gamble MD LAB BLOOD ORDERABLES Final R esult Performing Organization Address City/[facility] Co de Phone Number [facility] [place] [address] * Lactate, whole blood (05/05/2025 11:54 AM CDT) Lactate, bld 1.0 0.7 - 2.0 mmol/L Blood 05/05/2025 11:5 4 AM CDT 05/05/2025 12:04 PM CDT us Bar Gamble MD LAB BLOOD ORDERABLES Final R esult [facility] [place] [address] * XR Chest 1 View (05/05/2025 6:12 [...] ORDERABLES Fi nal Result Performing Organization Address [facility] Co de Phone Number [facility] [place] [address] * (ABNORMAL) Hemoglobin total, pulmonary artery (05/05/2025 5:31 AM CDT) Hemoglobin total, PA 11.9(L) 13.0 - 17.5 g/dL Blood 05/05/2025 5:31 AM CDT 05/05/2025 5:38 AM CDT us Zev Cowart MD PhD LAB BLOOD ORDERABLES Fi nal Result Performing Organization Address [facility] de Phone Number [facility] [place] [address] * Oxyhemoglobin, pulmonary artery (05/05/2025 4:16 AM CDT) Oxyhemoglobin, PA 70.8 % Comment: Interpretive Data No reference range established. Current interpretive data was last revised 2020. Blood 05/05/2025 4:16 AM CDT 05/05/2025 4:37 AM CDT us Bar Gamble MD LAB BLOOD ORDERABLES Final R esult Performing Organization Address [facility] Co de Phone Number [facility] [place] [address] * (ABNORMAL) Hemoglobin total, pulmonary artery (05/05/2025 4:16 AM CDT) Hemoglobin total, PA 11.7(L) 13.0 - 17.5 g/dL Blood 05/05/2025 4:16 AM CDT 05/05/2025 4:37 AM CDT Bar Gamble MD LAB BLOOD ORDERABLES Final R esult Performing Organization Address [facility] Co de Phone Number DULCE MARIA [facility] [place] [address] * (ABNORMAL) eGFR (05/05/2025 4:16 AM CDT) [...] ORDERABLES Final R esult Performing Organization Address [facility] Co de Phone Number [facility] [place] [address] * Lactate, whole blood (05/05/2025 4:16 AM CDT) Pathologist [facility] Lactate, bld 0.7 0.7 - 2.0 mmol/L Blood 05/05/2025 4:16 AM CDT 05/05/2025 4:37 AM CDT Bar Gamble MD LAB BLOOD ORDERABLES Final R esult Performing Organization Address [facility] Co de Phone Number [facility] Department [place] [address] * (ABNORMAL) aPTT (05/05/2025 4:16 AM CDT) [facility] aPTT 62(H) 28 - 38 sec Comment: Interpretive Data Heparin therapeutic range: 66.0 - 100.0 seconds. Range based on correlation with therapeutic heparin activity range of 0.3 - 0.7 Units/mL. Current interpretive data was last revised on 2023. Blood 05/05/2025 4:16 AM CDT 05/05/2025 4:25 AM CDT Narrative [facility] - 05/05/2025 4:48 AM CDT STAT PTT [...] ORDERABLES Final Re sult Performing Organization Address [facility]/ZIP Co de Phone Number [facility] Department [place] [address] * (ABNORMAL) CBC without differential (05/05/2025 4:16 AM CDT) [facility] WBC 8.92 3.80 - 9.90 K/cumm Hgb 11.7(L) 13.0 - 17.5 g/dL [facility] Hct 35.5(L) 38.9 - 50.3 % [facility] Plt 202 150 - 400 K/cumm [facility] MPV 11.6 9.1 - 12.3 fL [facility] RBC 4.28(L) 4.30 - 5.80 M/cumm [facility] MCV 82.9 81.3 - 96.4 fL [facility] MCH 27.3 27.1 - 33.3 pg [facility] MCHC 33.0 32.3 - 35.7 g/dL [facility] RDW CV 15.5(H) 11.1 - 14.9 % [facility] RDW SD 47.5 35.7 - 48.1 fL [facility] NRBC abs 0.00 0.00 - 0.01 K/cumm [facility] Blood 05/05/2025 4:16 AM CDT 05/05/2025 4:31 AM CDT us Bar Gamble MD LAB BLOOD ORDERABLES Final R esult Performing Organization Address City/[facility] Co de Phone Number [facility] [place] [address] * Phosphorus (05/05/2025 4:16 AM CDT) [facility] Phosphorus, pl 3.5 2.3 - 4.5 mg/dL Blood 05/05/2025 4:16 AM CDT 05/05/2025 4:31 AM CDT Bar Gamble MD LAB BLOOD ORDERABLES Final R esult Performing Organization Address City/[facility] Co de Phone Number [facility] [place] [address] * Magnesium (05/05/2025 4:16 AM CDT) [facility] Magnesium 2.1 1.4 - 2.5 mg/dL Blood 05/05/2025 4:16 AM CDT 05/05/2025 4:31 AM CDT Bar Gamble MD LAB BLOOD ORDERABLES Final R esult Performing Organization Address [facility] Co de Phone Number [facility] [place] [address] * (ABNORMAL) Hepatic function panel (05/05/2025 4:16 AM CDT) [facility] Bilirubin, total 0.7 0.1 - 1.2 mg/dL Bilirubin, direct 0.3 0.1 - 0.3 mg/dL [facility] Protein, pl 6.4(L) 6.5 - 8.5 g/dL [facility] Albumin 3.9 3.5 - 5.0 g/dL [facility] Alk phos 252(H) 40 - 130 Units/L [facility] ALT 28 7 - 55 Units/L [facility] AST 27 10 - 50 Units/L [facility] Blood 05/05/2025 4:16 AM CDT 05/05/2025 4:31 AM CDT us Bar Gamble MD LAB BLOOD ORDERABLES Final R esult Performing Organization Address City/[facility]/[place] [address] * (ABNORMAL) Basic metabolic panel (05/05/2025 4:16 AM CDT) [facility] Sodium 136 135 - 145 mmol/L Potassium, pl 4.3 3.3 - 4.9 mmol/L [facility] Chloride 95(L) 97 - 110 mmol/L [facility] CO2 30 22 - 32 mmol/L [facility] Anion gap 11 2 - 15 mmol/L [facility] BUN 45(H) 6 - 25 mg/dL [facility] Creatinine 1.55(H) 0.80 - 1.30 mg/dL [facility] Glucose 129 70 - 199 mg/dL [facility] Comment: Interpretive Data Fasting glucose >/= 126 [...] 2022. Calcium 9.8 8.5 - 10.3 mg/dL [facility] Blood 05/05/2025 4:16 AM CDT 05/05/2025 4:31 AM CDT us Bar Gamble MD LAB BLOOD ORDERABLES Final R esult Performing Organization Address City/[facility] Co de Phone Number [facility] [place] [address] * Oxyhemoglobin, pulmonary artery (05/04/2025 10:07 PM CDT) Pathologist WILMAN Becerra 59.6 % Comment: Interpretive Data No reference range established. Current interpretive data was last revised 2020. Blood 05/04/2025 10:0 7 PM CDT 05/04/2025 10:16 PM CDT us Bar Gamble MD LAB BLOOD ORDERABLES Final R esult Performing Organization Address City/[facility]/ZIP Co de Phone Number [facility] [place] [address] * (ABNORMAL) Hemoglobin total, pulmonary artery (05/04/2025 10:07 PM CDT) Hemoglobin total, PA 12.1(L) 13.0 - 17.5 g/dL Blood 05/04/2025 10:0 7 PM CDT 05/04/2025 10:16 PM CDT us Bar Gamble MD LAB BLOOD ORDERABLES Final R esult Performing Organization Address City/[facility] Co de Phone Number [facility] [place] [address] * Potassium, whole blood (05/04/2025 10:07 PM CDT) Potassium, bld 3.7 3.3 - 4.9 mmol/L Blood 05/04/2025 10:0 7 PM CDT 05/04/2025 10:16 PM CDT us Bar Gamble MD LAB BLOOD ORDERABLES Final R esult Performing Organization Address [facility] Co de Phone Number [facility] [place] [address] * Lactate, whole blood (05/04/2025 10:07 PM CDT) Lactate, bld 0.9 0.7 - 2.0 mmol/L Blood 05/04/2025 10:0 7 PM CDT 05/04/2025 10:16 PM CDT us Bar Gamble MD LAB BLOOD ORDERABLES Final R esult Performing Organization Address [facility] Co de Phone Number [facility] [place] [address] * Oxyhemoglobin, pulmonary artery (05/04/2025 5:28 PM CDT) Oxyhemoglobin, PA 59.5 % Comment: Interpretive Data No reference range established. Current interpretive data was last revised 2020. Blood 05/04/2025 5:28 PM CDT 05/04/2025 5:40 PM CDT us Bar Gamble MD LAB BLOOD ORDERABLES Final R esult [facility] [place] [address] * (ABNORMAL) Hemoglobin total, pulmonary artery (05/04/2025 5:28 PM CDT) Hemoglobin total, PA 12.2(L) 13.0 - 17.5 g/dL Blood 05/04/2025 5:28 PM CDT 05/04/2025 5:40 PM CDT us Bar Gamble MD LAB BLOOD ORDERABLES Final R esult Performing Organization Address City/[facility] Co de Phone Number [facility] [place] [address] * (ABNORMAL) eGFR (05/04/2025 5:28 PM CDT) eGFR 49(L) >=60 mL/min/1. 73 m2 Comment: [...] data was last reviewed 2021. Blood 05/04/2025 5:28 PM CDT 05/04/2025 5:47 PM CDT Bar Gamble MD LAB BLOOD ORDERABLES Final R esult Performing Organization Address City/[facility] Co de Phone Number [facility] [place] [address] * Lactate, whole blood (05/04/2025 5:28 PM CDT) Lactate, bld 0.7 0.7 - 2.0 mmol/L Blood 05/04/2025 5:28 PM CDT 05/04/2025 5:40 PM CDT us Bar Gamble MD LAB BLOOD ORDERABLES Final R esult Performing Organization Address [facility] Co de Phone Number [facility] [place] [address] * Phosphorus (05/04/2025 5:28 PM CDT) Phosphorus, pl 4.1 2.3 - 4.5 mg/dL Blood 05/04/2025 5:28 PM CDT 05/04/2025 5:47 PM CDT us Bar Gamble MD LAB BLOOD ORDERABLES Final R esult Performing Organization Address City/[facility] Co de Phone Number [facility] [place] [address] * Magnesium (05/04/2025 5:28 PM CDT) Magnesium 2.0 1.4 - 2.5 mg/dL Blood 05/04/2025 5:28 PM CDT 05/04/2025 5:47 PM CDT us Bar Gamble MD LAB BLOOD ORDERABLES Final R esult Performing Organization Address City/[facility]/ZIP Co de Phone Number [facility] [place] [address] * (ABNORMAL) Basic metabolic panel (05/04/2025 5:28 PM CDT) Sodium 133(L) 135 - 145 mmol/L Potassium, pl 4.3 3.3 - 4.9 mmol/L [facility] Chloride 93(L) 97 - 110 mmol/L [facility] CO2 28 22 - 32 mmol/L [facility] Anion gap 12 2 - 15 mmol/L [facility] BUN 44(H) 6 - 25 mg/dL [facility] Creatinine 1.59(H) 0.80 - 1.30 mg/dL [facility] Glucose 157 70 - 199 mg/dL [facility] Comment: Interpretive Data Fasting glucose >/= 126 [...] 2022. Calcium 9.6 8.5 - 10.3 mg/dL [facility] Blood 05/04/2025 5:28 PM CDT 05/04/2025 5:47 PM CDT us Bar Gamble MD LAB BLOOD ORDERABLES Final R esult Performing Organization Address City/[facility]/ZIP Co de Phone Number [facility] [place] [address] * POC Blood Gas and Chemistries, Arterial [...] POCT ORDERABLES - D RISHI Final Result Performing Organization Address [facility] Co de Phone Number [facility] [place] [address] * Oxyhemoglobin, pulmonary artery (05/04/2025 11:53 AM CDT) Oxyhemoglobin, PA 60.9 % Comment: Interpretive Data No reference range established. Current interpretive data was last revised 2020. Blood 05/04/2025 11:5 3 AM CDT 05/04/2025 12:06 PM CDT Bar Gamble MD LAB BLOOD ORDERABLES Final R esult Performing Organization Address [facility] Co de Phone Number [facility] Department [place] [address] * (ABNORMAL) Hemoglobin total, pulmonary artery (05/04/2025 11:53 AM CDT) Hemoglobin total, PA 12.4(L) 13.0 - 17.5 g/dL Blood 05/04/2025 11:5 3 AM CDT 05/04/2025 12:06 PM CDT Bar Gamble MD LAB BLOOD ORDERABLES Final R esult Performing Organization Address [facility] Co de Phone Number [facility] Department [place] [address] * Lactate, whole blood (05/04/2025 11:53 AM CDT) Lactate, bld 1.2 0.7 - 2.0 mmol/L Blood 05/04/2025 11:5 3 AM CDT 05/04/2025 12:06 PM CDT Bar Gamble MD LAB BLOOD ORDERABLES Final R esult D[facility] MAR[facility] [place] [address] * XR Chest 1 View (05/04/2025 5:55 AM CDT) Anatomical Region Laterality Modality Body, Chest N/A Computed Radiogr aphy 05/04/2025 7:29 AM CDT Impressions 05/04/2025 12:00 PM CDT Comparison with 05/03/2025. Interval advancement of right internal jugular Packwood-Jayne catheter into a right lower lobe segmental [...] 1 view chest radiograph Procedure Note Toño Ralws MD - 05/04/2025 EXAMINATION: 1 view chest radiograph IMPRESSION: Comparison with 05/03/2025. Interval advancement of right internal jugular Packwood-Jayne catheter into a right lower lobe segmental [...] it. Electronically signed by: Toño Rawls M.D. Bar Gamble MD IMG XR PROCEDURES Final Resu lt * Oxyhemoglobin, pulmonary artery (05/04/2025 5:39 AM CDT) Oxyhemoglobin, PA 65.8 % Comment: Interpretive Data No reference range established. Current interpretive data was last revised 2020. Blood 05/04/2025 5:39 AM CDT 05/04/2025 5:49 AM CDT Bar Gamble MD LAB BLOOD ORDERABLES Final R esult Performing Organization Address City/[facility]/ZIP Co de Phone Number [facility] [place] [address] * (ABNORMAL) Hemoglobin total, pulmonary artery (05/04/2025 5:39 AM CDT) Hemoglobin total, PA 11.5(L) 13.0 - 17.5 g/dL Blood 05/04/2025 5:39 AM CDT 05/04/2025 5:49 AM CDT Bar Gamble MD LAB BLOOD ORDERABLES Final R esult [facility] [place] [address] * Potassium, whole blood (05/04/2025 5:39 AM CDT) Potassium, bld 3.8 3.3 - 4.9 mmol/L Blood 05/04/2025 5:39 AM CDT 05/04/2025 5:49 AM CDT Bar Gamble MD LAB BLOOD ORDERABLES Final R esult [facility] [place] [address] * (ABNORMAL) eGFR (05/04/2025 5:39 AM CDT) [...] BLOOD ORDERABLES Final R esult [facility] [place] [address] * Lactate, whole blood (05/04/2025 5:39 AM CDT) Lactate, bld 0.7 0.7 - 2.0 mmol/L Blood 05/04/2025 5:39 AM CDT 05/04/2025 5:49 AM CDT Bar Gamble MD LAB BLOOD ORDERABLES Final R esult DULCE MARIA [facility] Department [place] [address] * (ABNORMAL) aPTT (05/04/2025 5:39 AM CDT) Pathologist [facility] aPTT 59(H) 28 - 38 sec Comment: Interpretive Data Heparin therapeutic range: 66.0 - 100.0 seconds. Range based on correlation with therapeutic heparin activity range of 0.3 - 0.7 Units/mL. Current interpretive data was last revised on 2023. Blood 05/04/2025 5:39 AM CDT 05/04/2025 5:59 AM CDT Narrative [facility] - 05/04/2025 6:09 AM CDT STAT PTT [...] NP LAB BLOOD ORDERABLES Final Re sult [facility] Department [place] [address] * (ABNORMAL) CBC without differential (05/04/2025 5:39 AM CDT) [facility] WBC 8.60 3.80 - 9.90 K/cumm Hgb 11.3(L) 13.0 - 17.5 g/dL [facility] Hct 33.8(L) 38.9 - 50.3 % [facility] Plt 200 150 - 400 K/cumm [facility] MPV 11.7 9.1 - 12.3 fL [facility] RBC 4.09(L) 4.30 - 5.80 M/cumm [facility] MCV 82.6 81.3 - 96.4 fL [facility] MCH 27.6 27.1 - 33.3 pg [facility] MCHC 33.4 32.3 - 35.7 g/dL [facility] RDW CV 15.6(H) 11.1 - 14.9 % [facility] RDW SD 47.2 35.7 - 48.1 fL [facility] NRBC abs 0.00 0.00 - 0.01 K/cumm [facility] Blood 05/04/2025 5:39 AM CDT 05/04/2025 5:51 AM CDT us Bar Gamble MD LAB BLOOD ORDERABLES Final R esult [facility] Department [place] [address] * Phosphorus (05/04/2025 5:39 AM CDT) Phosphorus, pl 3.3 2.3 - 4.5 mg/dL Blood 05/04/2025 5:39 AM CDT 05/04/2025 5:52 AM CDT us Bar Gamble MD LAB BLOOD ORDERABLES Final R esult [facility] [place] [address] * Magnesium (05/04/2025 5:39 AM CDT) Magnesium 2.1 1.4 - 2.5 mg/dL Blood 05/04/2025 5:39 AM CDT 05/04/2025 5:52 AM CDT us Bar Gamble MD LAB BLOOD ORDERABLES Final R esult Performing Organization Address City/[facility] Co de Phone Number [facility] [place] [address] * (ABNORMAL) Hepatic function panel (05/04/2025 5:39 AM CDT) [facility] Bilirubin, total 0.7 0.1 - 1.2 mg/dL Bilirubin, direct 0.3 0.1 - 0.3 mg/dL [facility] Protein, pl 6.0(L) 6.5 - 8.5 g/dL [facility] Albumin 3.8 3.5 - 5.0 g/dL [facility] Alk phos 233(H) 40 - 130 Units/L [facility] ALT 28 7 - 55 Units/L [facility] AST 29 10 - 50 Units/L [facility] Blood 05/04/2025 5:39 AM CDT 05/04/2025 5:52 AM CDT us Bar Gamble MD LAB BLOOD ORDERABLES Final R ult Performing Organization Address [facility] de Phone Number [facility] Department [place] [address] * (ABNORMAL) Basic metabolic panel (05/04/2025 5:39 AM CDT) Pathologist [facility] Sodium 137 135 - 145 mmol/L Potassium, pl 4.1 3.3 - 4.9 mmol/L [facility] Chloride 98 97 - 110 mmol/L [facility] CO2 28 22 - 32 mmol/L [facility] Anion gap 11 2 - 15 mmol/L [facility] BUN 45(H) 6 - 25 mg/dL [facility] Creatinine 1.40(H) 0.80 - 1.30 mg/dL [facility] Glucose 131 70 - 199 mg/dL [facility] Comment: Interpretive Data Fasting glucose >/= 126 [...] 2022. Calcium 9.4 8.5 - 10.3 mg/dL [facility] Blood 05/04/2025 5:39 AM CDT 05/04/2025 5:52 AM CDT Bar Gamble MD LAB BLOOD ORDERABLES Final R esult Performing Organization Address [facility] Co de Phone Number [facility] [place] [address] * Oxyhemoglobin, pulmonary artery (05/03/2025 11:21 PM CDT) Oxyhemoglobin, PA 63.7 % Comment: Interpretive Data No reference range established. Current interpretive data was last revised 2020. Blood 05/03/2025 11:2 1 PM CDT 05/03/2025 11:33 PM CDT us Bar Gamble MD LAB BLOOD ORDERABLES Final R esult Performing Organization Address City/[facility]/ZIP Co de Phone Number [facility] [place] [address] * (ABNORMAL) Hemoglobin total, pulmonary artery (05/03/2025 11:21 PM CDT) Hemoglobin total, PA 12.1(L) 13.0 - 17.5 g/dL Blood 05/03/2025 11:2 1 PM CDT 05/03/2025 11:33 PM CDT Bar Gamble MD LAB BLOOD ORDERABLES Final R esult Performing Organization Address City/[facility]/ZIP Co de Phone Number [facility] [place] [address] * Potassium, whole blood (05/03/2025 11:21 PM CDT) Potassium, bld 3.8 3.3 - 4.9 mmol/L Blood 05/03/2025 11:2 1 PM CDT 05/03/2025 11:33 PM CDT Bar Gamble MD LAB BLOOD ORDERABLES Final R esult Performing Organization Address [facility] Co de Phone Number [facility] [place] [address] * Lactate, whole blood (05/03/2025 11:21 PM CDT) Lactate, bld 0.7 0.7 - 2.0 mmol/L Blood 05/03/2025 11:2 1 PM CDT 05/03/2025 11:33 PM CDT Bar Gamble MD LAB BLOOD ORDERABLES Final R esult Performing Organization Address [facility] Co de Phone Number [facility] [place] [address] * Oxyhemoglobin, pulmonary artery (05/03/2025 5:23 PM CDT) Oxyhemoglobin, PA 85.1 % Comment: Interpretive Data No reference range established. Current interpretive data was last revised 2020. Blood 05/03/2025 5:23 PM CDT 05/03/2025 5:32 PM CDT Bar Gamble MD LAB BLOOD ORDERABLES Final R [facility]ult [facility] [place] [address] * (ABNORMAL) Hemoglobin total, pulmonary artery (05/03/2025 5:23 PM CDT) Hemoglobin total, PA 12.1(L) 13.0 - 17.5 g/dL Blood 05/03/2025 5:23 PM CDT 05/03/2025 5:32 PM CDT us Bar Gamble MD LAB BLOOD ORDERABLES Final R esult Performing Organization Address [facility] Co de Phone Number DULCE MARIA [facility] [place] [address] * (ABNORMAL) eGFR (05/03/2025 5:23 PM CDT) eGFR 58(L) >=60 mL/min/1. 73 [...] LAB BLOOD ORDERABLES Final R esult [facility] [place] [address] * Lactate, whole blood (05/03/2025 5:23 PM CDT) Lactate, bld 1.1 0.7 - 2.0 mmol/L Blood 05/03/2025 5:23 PM CDT 05/03/2025 5:32 PM CDT us Bar Gamble MD LAB BLOOD ORDERABLES Final R esult Performing Organization Address City/[facility] Co de Phone Number [facility] [place] [address] * Phosphorus (05/03/2025 5:23 PM CDT) Phosphorus, pl 3.8 2.3 - 4.5 mg/dL Blood 05/03/2025 5:23 PM CDT 05/03/2025 5:36 PM CDT us Bar Gamble MD LAB BLOOD ORDERABLES Final R esult Performing Organization Address City/[facility]/ZIP Co de Phone Number [facility] [place] [address] * Magnesium (05/03/2025 5:23 PM CDT) Magnesium 2.1 1.4 - 2.5 mg/dL Blood 05/03/2025 5:23 PM CDT 05/03/2025 5:36 PM CDT Bar Gamble MD LAB BLOOD ORDERABLES Final R esult [facility] [employer] [place] [id number] * (ABNORMAL) Basic metabolic panel (05/03/2025 5:23 PM CDT) Pathologist [facility] Sodium 138 135 - 145 mmol/L Potassium, pl 3.1(L) 3.3 - 4.9 mmol/L [facility] Chloride 97 97 - 110 mmol/L [facility] CO2 29 22 - 32 mmol/L [facility] Anion gap 12 2 - 15 mmol/L [facility] BUN 45(H) 6 - 25 mg/dL [facility] Creatinine 1.40(H) 0.80 - 1.30 mg/dL [facility] Glucose 141 70 - 199 mg/dL [facility] Comment: Interpretive Data Fasting glucose >/= 126 [...] 2022. Calcium 9.2 8.5 - 10.3 mg/dL [facility] Blood 05/03/2025 5:23 PM CDT 05/03/2025 5:36 PM CDT Bar Gamble MD LAB BLOOD ORDERABLES Final R esult [facility] [place] [address] * Oxyhemoglobin, pulmonary artery (05/03/2025 11:13 AM CDT) Pathologist [facility] Oxyhemoglobin, PA 58.6 % Comment: Interpretive Data No reference range established. Current interpretive data was last revised 2020. Blood 05/03/2025 11:1 3 AM CDT 05/03/2025 11:25 AM CDT Bar Gamble MD LAB BLOOD ORDERABLES Final R esult Performing Organization Address City/[facility] Co de Phone Number [facility] [place] [address] * (ABNORMAL) Hemoglobin total, pulmonary artery (05/03/2025 11:13 AM CDT) Hemoglobin total, PA 12.7(L) 13.0 - 17.5 g/dL Blood 05/03/2025 11:1 3 AM CDT 05/03/2025 11:25 AM CDT Bar Gamble MD LAB BLOOD ORDERABLES Final R esult Performing Organization Address [facility] Co de Phone Number [facility] [place] [address] * Lactate, whole blood (05/03/2025 11:13 AM CDT) Pathologist [facility] Lactate, bld 0.7 0.7 - 2.0 mmol/L Blood 05/03/2025 11:1 3 AM CDT 05/03/2025 11:25 AM CDT Result [facility] Bar Gamble MD LAB BLOOD ORDERABLES Final R esult Performing Organization Address [facility] [place] [address] * Infection Prevention Shady auris PCR, surveillance Axilla/Groin (05/03/2025 9:19 AM CDT) Pathologist [facility] Shady auris DNA Not Detected Not Detected [facility] Comment: Interpretive Data Testing performed by [facility] Molecular Infectious Disease Laboratory using the Lucas carlos 6800 Shady auris assay. This assay detects DNA from Shady auris using Real-Time PCR. This assay is laboratory developed and is not cleared by the [place] Food and Drug Administration. The performance characteristics have been verified by the [facility] Molecular Infectious Disease Laboratory. Axilla/Groin 05/03/2025 9:19 AM CDT 05/03/2025 11:30 AM CDT Narrative DULCE MARIA ARANDA - 05/04/2025 2:12 AM CDT Order placed by [facility] due to ring surveillance. us Instant Order Generic Provider LAB MICROBIOLOGY - GENERAL ORDERABLES Final Result DULCE MARIA [facility] [place] [address] [facility] * XR Chest 1 View (05/03/2025 6:11 AM CDT) Anatomical Region Laterality Modality Body, Chest N/A Digital Radiogra phy 05/03/2025 7:14 AM CDT Impressions 05/03/2025 7:14 AM CDT 1 view chest radiograph, dated 05/02/2025 at 6:39 PM Comparison is made to prior chest radiograph dated 04/30/2025. Right peripherally inserted central venous catheter terminates in the superior cavoatrial junction. Right internal jugular Packwood-Jayne catheter has been advanced and terminates in the interlobar pulmonary artery. No significant change in small bilateral pleural effusions with atelectasis. No pneumothorax. Stable heart size. 1 view chest radiograph, dated 05/03/2025 at 5:43 AM Comparison is made to above study. Packwood-Jayne catheter is been slightly retracted, still terminating [...] the superior cavoatrial junction. Right internal jugular Packwood-Jayne catheter has been advanced and terminates in the interlobar pulmonary artery. No significant change in small bilateral pleural effusions with atelectasis. No pneumothorax. Stable heart size. 1 view chest radiograph, dated 05/03/2025 at 5:43 AM Comparison is made to above study. Packwood-Jayne catheter is been slightly retracted, still terminating in the interlobar pulmonary artery. Otherwise, there is no change. Electronically signed by: Kelsey Beauchamp M.D. Bar Gamble MD IMG XR PROCEDURES Final Resu lt * Oxyhemoglobin, pulmonary artery (05/03/2025 4:42 AM CDT) Oxyhemoglobin, PA 68.3 % Comment: Interpretive Data No reference range established. Current interpretive data was last revised 2020. Blood 05/03/2025 4:42 AM CDT 05/03/2025 5:05 AM CDT Bar Gamble MD LAB BLOOD ORDERABLES Final R esult [facility] [place] [address] * (ABNORMAL) Hemoglobin total, pulmonary artery (05/03/2025 4:42 AM CDT) Hemoglobin total, PA 11.9(L) 13.0 - 17.5 g/dL Blood 05/03/2025 4:42 AM CDT 05/03/2025 5:05 AM CDT Bar Gamble MD LAB BLOOD ORDERABLES Final R esult Performing Organization Address City/[facility] Co de Phone Number DULCE MARIA [facility] [place] [address] * (ABNORMAL) eGFR (05/03/2025 4:42 AM CDT) [...] esult DULCE MARIA ARANDA [facility] [place] [address] * Lactate, whole blood (05/03/2025 4:42 AM CDT) Lactate, bld 0.7 0.7 - 2.0 mmol/L Blood 05/03/2025 4:42 AM CDT 05/03/2025 5:05 AM CDT Bar Gamble MD LAB BLOOD ORDERABLES Final R esult Performing Organization Address [facility] Co de Phone Number [facility] Department [place] [address] * (ABNORMAL) aPTT (05/03/2025 4:42 AM CDT) [facility] aPTT 57(H) 28 - 38 sec Comment: Interpretive Data Heparin therapeutic range: 66.0 - 100.0 seconds. Range based on correlation with therapeutic heparin activity range of 0.3 - 0.7 Units/mL. Current interpretive data was last revised on 2023. Blood 05/03/2025 4:42 AM CDT 05/03/2025 5:21 AM CDT Narrative [facility] - 05/03/2025 5:30 AM CDT STAT PTT [...] peripherally (not from CVC). us Libia Suarez PROGRAM SUPPORT CLERK LAB BLOOD ORDERABLES Final Re sult Performing Organization Address [facility]/ZIP Co de Phone Number DULCE MARIA [facility] [place] [address] * (ABNORMAL) CBC without differential (05/03/2025 4:42 AM CDT) [facility] WBC 8.97 3.80 - 9.90 K/cumm Hgb 11.4(L) 13.0 - 17.5 g/dL [facility] Hct 35.1(L) 38.9 - 50.3 % [facility] Plt 202 150 - 400 K/cumm [facility] MPV 11.7 9.1 - 12.3 fL [facility] RBC 4.22(L) 4.30 - 5.80 M/cumm [facility] MCV 83.2 81.3 - 96.4 fL [facility] MCH 27.0(L) 27.1 - 33.3 pg [facility] MCHC 32.5 32.3 - 35.7 g/dL [facility] RDW CV 15.7(H) 11.1 - 14.9 % [facility] RDW SD 48.0 35.7 - 48.1 fL [facility] NRBC abs 0.00 0.00 - 0.01 K/cumm [facility] Blood 05/03/2025 4:42 AM CDT 05/03/2025 5:15 AM CDT us Bar Gamble MD LAB BLOOD ORDERABLES Final R esult [facility] Department [place] [address] * Phosphorus (05/03/2025 4:42 AM CDT) Phosphorus, pl 4.1 2.3 - 4.5 mg/dL Blood 05/03/2025 4:42 AM CDT 05/03/2025 5:15 AM CDT us Bar Gamble MD LAB BLOOD ORDERABLES Final R esult [facility] [place] [address] * Magnesium (05/03/2025 4:42 AM CDT) Magnesium 2.2 1.4 - 2.5 mg/dL Blood 05/03/2025 4:42 AM CDT 05/03/2025 5:15 AM CDT us Bar Gamble MD LAB BLOOD ORDERABLES Final R esult Performing Organization Address City/[facility]/ZIP Co de Phone Number [facility] [place] [address] * (ABNORMAL) Hepatic function panel (05/03/2025 4:42 AM CDT) Pathologist [facility] Bilirubin, total 0.6 0.1 - 1.2 mg/dL Bilirubin, direct 0.2 0.1 - 0.3 mg/dL [facility] Comment:Hemolyzed; result ma y be falsely decreased Protein, pl 6.2(L) 6.5 - 8.5 g/dL [facility] Albumin 3.8 3.5 - 5.0 g/dL [facility] Alk phos 240(H) 40 - 130 Units/L [facility] ALT 29 7 - 55 Units/L [facility] AST 40 10 - 50 Units/L [facility] Comment:Hemolyzed; result ma y be falsely elevated Blood 05/03/2025 4:42 AM CDT 05/03/2025 5:15 AM CDT us Bar Gamble MD LAB BLOOD ORDERABLES Final R esult Performing Organization Address [facility] Co de Phone Number [facility] Department [place] [address] * (ABNORMAL) Basic metabolic panel (05/03/2025 4:42 AM CDT) Pathologist [facility] Sodium 138 135 - 145 mmol/L Potassium, pl 3.6 3.3 - 4.9 mmol/L [facility] Comment:Hemolyzed; Potassium value may be falsely elevated by as much as 0.3-0.5 mmol/L. Suggest redraw and reanalysis. Chloride 97 97 - 110 mmol/L [facility] CO2 31 22 - 32 mmol/L [facility] Anion gap 10 2 - 15 mmol/L [facility] BUN 50(H) 6 - 25 mg/dL [facility] Creatinine 1.40(H) 0.80 - 1.30 mg/dL [facility] Glucose 128 70 - 199 mg/dL [facility] Comment: Interpretive Data Fasting glucose >/= 126 [...] 2022. Calcium 9.5 8.5 - 10.3 mg/dL [facility] Blood 05/03/2025 4:42 AM CDT 05/03/2025 5:15 AM CDT us Bar Gamble MD LAB BLOOD ORDERABLES Final R esult [facility] [place] [address] * (ABNORMAL) aPTT (05/03/2025 12:09 AM CDT) aPTT 58(H) 28 - 38 sec Comment: Interpretive Data Heparin therapeutic range: 66.0 - 100.0 seconds. Range based on correlation with therapeutic heparin activity range of 0.3 - 0.7 Units/mL. Current interpretive data was last revised on 2023. Blood 05/03/2025 12:0 9 AM CDT 05/03/2025 12:32 AM CDT Narrative [facility] - 05/03/2025 12:57 AM CDT STAT PTT [...] ORDERABLES Final Re sult Performing Organization Address [facility] Co de Phone Number [facility] [place] [address] * Magnesium (05/02/2025 10:07 PM CDT) [facility] Magnesium 2.4 1.4 - 2.5 mg/dL Blood 05/02/2025 10:0 7 PM CDT 05/02/2025 10:17 PM CDT Bar Gamble MD LAB BLOOD ORDERABLES Final R esult Performing Organization Address [facility] Co de Phone Number [facility] [place] [address] * Potassium, whole blood (05/02/2025 10:03 PM CDT) Pathologist [facility] Potassium, bld 4.4 3.3 - 4.9 mmol/L Blood 05/02/2025 10:0 3 PM CDT 05/02/2025 10:13 PM CDT Bar Gamble MD LAB BLOOD ORDERABLES Final R esult Performing Organization Address [facility] Co de Phone Number [facility] [place] [address] * (ABNORMAL) aPTT (05/02/2025 10:03 PM CDT) Pathologist [facility] aPTT 56(H) 28 - 38 sec Comment: Interpretive Data Heparin therapeutic range: 66.0 - 100.0 seconds. Range based on correlation with therapeutic heparin activity range of 0.3 - 0.7 Units/mL. Current interpretive data was last revised on 2023. Blood 05/02/2025 10:0 3 PM CDT 05/02/2025 10:20 PM CDT Narrative DULCE MARIA [facility] - 05/02/2025 10:30 PM CDT STAT PTT [...] drawn peripherally (not from CVC). Libia Suarez PROGRAM SUPPORT CLERK LAB BLOOD ORDERABLES Final Re sult Performing Organization Address City/[facility] Co de Phone Number [facility] [place] [address] * Oxyhemoglobin, pulmonary artery (05/02/2025 8:32 PM CDT) Pathologist [facility] Oxyhemoglobin, PA 66.6 % Comment: Interpretive Data No reference range established. Current interpretive data was last revised 2020. Blood 05/02/2025 8:32 PM CDT 05/02/2025 8:49 PM CDT Wang Almaraz MD LAB BLOOD ORDERABLES Final R esult Performing Organization Address City/[facility]/ZIP Co de Phone Number [facility] Department [place] [address] * (ABNORMAL) Hemoglobin total, pulmonary artery (05/02/2025 8:32 PM CDT) Hemoglobin total, PA 12.4(L) 13.0 - 17.5 g/dL Blood 05/02/2025 8:32 PM CDT 05/02/2025 8:49 PM CDT us Bar Gamble MD LAB BLOOD ORDERABLES Final R esult DULCE MARIA [facility] [place] [address] * XR Chest 1 View (05/02/2025 7:19 PM CDT) Anatomical Region Laterality Modality Body, Chest N/A Digital Radiogra phy 05/03/2025 7:14 AM CDT Impressions 05/03/2025 7:14 AM CDT 1 view chest radiograph, dated 05/02/2025 at 6:39 PM Comparison is made to prior chest radiograph dated 04/30/2025. Right peripherally inserted central venous catheter terminates in the superior cavoatrial junction. Right internal jugular Packwood-Jayne catheter has been advanced and terminates in the interlobar pulmonary artery. No significant change in small bilateral pleural effusions with atelectasis. No pneumothorax. Stable heart size. 1 view chest radiograph, dated 05/03/2025 at 5:43 AM Comparison is made to above study. Packwood-Jayne catheter is been slightly retracted, still terminating [...] the superior cavoatrial junction. Right internal jugular Packwood-Jayne catheter has been advanced and terminates in the interlobar pulmonary artery. No significant change in small bilateral pleural effusions with atelectasis. No pneumothorax. Stable heart size. 1 view chest radiograph, dated 05/03/2025 at 5:43 AM Comparison is made to above study. Packwood-Jayne catheter is been slightly retracted, still terminating in the interlobar pulmonary artery. Otherwise, there is no change. Electronically signed by: Kelsey Beauchamp M.D. Bar Gamble MD IMG XR PROCEDURES [...] 6:48 PM CDT 05/02/2025 7:10 PM CDT [facility] - 05/02/2025 7:19 PM CDT STAT PTT [...] ORDERABLES Final Re sult Performing Organization Address [facility] de Phone Number [facility] [place] [address] * Antibody identification (05/02/2025 6:38 PM CDT) Pathologist [facility] Antibody ID 1 Anti-CD38 Comment:Panreactive -CD38 on reagent RBCs reacting with anti-CD38 therapy. DTT treatment removes cell surface CD38 and allows detection of common clinically significant antibodies except those against Dilma antigens. TRANSFUSION 2015;55;[id number] Blood 05/02/2025 6:38 PM CDT 05/02/2025 6:38 PM CDT Libia Suarez NP LAB BLOOD BANK TEST ORDERABLE S Final Result Performing Organization Address [facility] de Phone Number [facility] [place] [address] * (ABNORMAL) Hemoglobin total, pulmonary artery (05/02/2025 4:24 PM CDT) Pathologist [facility] Hemoglobin total, PA 12.2(L) 13.0 - 17.5 g/dL Blood 05/02/2025 4:24 PM CDT 05/02/2025 4:56 PM CDT Bar Gamble MD LAB BLOOD ORDERABLES Final R esult Performing Organization Address [facility] Co de Phone Number [facility] [place] [address] * Oxyhemoglobin, pulmonary artery (05/02/2025 4:21 PM CDT) Pathologist [facility] Oxyhemoglobin, PA 67.7 % Comment: Interpretive Data No reference range established. Current interpretive data was last revised 2020. Blood 05/02/2025 4:21 PM CDT 05/02/2025 4:56 PM CDT us Wang Almaraz MD LAB BLOOD ORDERABLES Final R esult Performing Organization Address City/[facility]/ZIP Co de Phone Number DULCE MARIA [facility] Department [place] [address] * (ABNORMAL) eGFR (05/02/2025 4:21 PM CDT) eGFR 55(L) >=60 mL/min/1. 73 [...] BLOOD ORDERABLES Final R esult DULCE MARIA [facility] Department [place] [address] * Blood culture Blood (05/02/2025 4:21 PM CDT) Report Final Report: No growth Blood 05/02/2025 4:21 PM CDT 05/02/2025 5:00 PM CDT Narrative DULCE AMRIA ARANDA - 05/07/2025 7:01 AM CDT From a [...] characteristics have been verified by the [facility] Microbiology Laboratory. For questions about this culture, contact the Microbiology Laboratory at [phone]. Interpretive data was last revised on 24. Bar Gamble MD LAB MICROBIOLOGY - GENERAL O RDERABLES Final Result DULCE MARIA ARANDA [facility] [place] [address] * Blood culture Blood (05/02/2025 4:21 PM CDT) Report Final Report: No growth Blood 05/02/2025 4:21 PM CDT 05/02/2025 5:00 PM CDT Narrative DULCE MARIA [facility] - 05/07/2025 7:01 AM CDT Collection->Peripheral 1. [...] characteristics have been verified by the [facility] Microbiology Laboratory. For questions about this culture, contact the Microbiology Laboratory at [phone]. Interpretive data was last revised on 24. Bar Gamble MD LAB MICROBIOLOGY - GENERAL O RDERABLES Final Result [facility] [place] [address] * (ABNORMAL) Type and screen (05/02/2025 4:21 PM CDT) Poppy, indirect Positive(A) ABO Rh O Positive [facility] Blood 05/02/2025 4:21 PM CDT 05/02/2025 5:00 PM CDT Narrative [facility] - 05/02/2025 6:38 PM CDT Has the patient had Daratumumab or Isatuximab in the past 6 months?->Unknown us Libia Suarez NP LAB BLOOD BANK TEST ORDERABLE S Final Result [facility] [place] [address] * Phosphorus (05/02/2025 4:21 PM CDT) Phosphorus, pl 3.3 2.3 - 4.5 mg/dL Blood 05/02/2025 4:21 PM CDT 05/02/2025 5:01 PM CDT us Bar Gamble MD LAB BLOOD ORDERABLES Final R esult [facility] [place] [address] * Magnesium (05/02/2025 4:21 PM CDT) Pathologist [facility] Magnesium 2.4 1.4 - 2.5 mg/dL Blood 05/02/2025 4:21 PM CDT 05/02/2025 5:01 PM CDT us Bar Gamble MD LAB BLOOD ORDERABLES Final R esult Performing Organization Address [facility] Co de Phone Number [facility] [place] [address] * (ABNORMAL) Basic metabolic panel (05/02/2025 4:21 PM CDT) Pathologist [facility] Sodium 138 135 - 145 mmol/L Potassium, pl 3.0(L) 3.3 - 4.9 mmol/L [facility] Chloride 95(L) 97 - 110 mmol/L [facility] CO2 30 22 - 32 mmol/L [facility] Anion gap 13 2 - 15 mmol/L [facility] BUN 47(H) 6 - 25 mg/dL [facility] Creatinine 1.45(H) 0.80 - 1.30 mg/dL [facility] Glucose 200(H) 70 - 199 mg/dL [facility] Comment: Interpretive Data Fasting glucose >/= 126 [...] 2022. Calcium 9.4 8.5 - 10.3 mg/dL [facility] Blood 05/02/2025 4:21 PM CDT 05/02/2025 5:01 PM CDT us Bar Gamble MD LAB BLOOD ORDERABLES Final R esult Performing Organization Address [facility] Co de Phone Number [facility] [place] [address] * ECG 12 lead (05/02/2025 4:11 PM CDT) Ventricular Rate EKG/Min 105 BPM [facility] Atrial Rate 105 BPM [facility] [place]-Interval (MSEC) 226 ms [facility] QRS-Interval (MSEC) 108 ms [facility] QT-Interval (MSEC) 302 ms [facility] QTc 399 ms [facility] P [place] 66 degrees [facility] R [place] -79 degrees [facility] T [place] 84 degrees [facility] Diagnosis Sinus tachycardia with 1st degree A-V block with Premature atrial complexes Left axis deviation Low voltage QRS Incomplete right bundle branch block Inferior infarct (cited on or before 08-APR-2025) Cannot rule out Anterior infarct (cited on or before 01-JUL-2021) Abnormal ECG When compared with ECG of 16-APR-2025 17:55, Premature atrial complexes are now Present Confirmed by LAZARO SANDOVAL M.D ([id number]) on 05/03/2025 4:32:36 PM [facility] 05/02/2025 4:11 PM CDT 05/03/2025 4:32 PM CDT us Yaakov Lawrence MD PhD ECG ORDERABLES Fi nal Result Performing Organization Address City/[facility] Co de Phone Number [facility] * RIGHT HEART CATH, RIGHT HEART CATHETERIZATION [...] usual sterile fashion. 3) I provided direct [id number] monitoring of conscious sedation which was administered by an independent trained nurse using Fentanyl 12.5 mcg and Midazolam 0.5 mg. Sedation time 43 min. Local anesthesia with 1% lidocaine was used. 4) Venous access was obtained in theRight Internal Jugular vein using modified Seldinger technique and micropuncture approach. A 8 Pakistani sheath was secured into place. 5) Right heart catheterization was performed with a 7.5 Pakistani VIP Eliel Jayne catheter. The catheter was [...] with the referring physician. Felicitas Rodgers DO District Sales Coordinator Division of Cardiology [facility] Libia Suarez PROGRAM SUPPORT CLERK CV CARDIAC CATH PROCEDURES Fi nal Result * (ABNORMAL) POCT oxyhemoglobin (05/02/2025 1:25 PM CDT) ESL TUTOR Oxyhemoglobin 56.7(L) >=65.0 % ESL TUTOR Hemoglobin 11.5(L) 13.0 - 17.5 g/dL [facility] ESL TUTOR O2 content 9.1(L) 15.0 - 22.0 Vol % [facility] Anatomic Site aPOC Pulm Artery [facility] Blood 05/02/2025 1:25 PM CDT 05/02/2025 1:25 PM CDT Vannesa Gibbs MD LAB POCT ORDERABLES - D EVICE Final Result [facility] [place] [address] * (ABNORMAL) POCT oxyhemoglobin (05/02/2025 1:24 PM CDT) ESL TUTOR Oxyhemoglobin 55.0(L) >=65.0 % ESL TUTOR Hemoglobin 11.8(L) 13.0 - 17.5 g/dL [facility] ESL TUTOR O2 content 9.0(L) 15.0 - 22.0 Vol % [facility] Anatomic Site aPOC Pulm Artery [facility] Blood 05/02/2025 1:24 PM CDT 05/02/2025 1:24 PM CDT Vannesa Gibbs MD LAB POCT ORDERABLES - D EVICE Final Result [facility] [place] [address] * Potassium, whole blood (05/02/2025 6:38 AM CDT) Pathologist [facility] Potassium, bld 3.7 3.3 - 4.9 mmol/L Blood 05/02/2025 6:38 AM CDT 05/02/2025 7:30 AM CDT Dinorah Kahn NP LAB BLOOD ORDERABLES Final Result Performing Organization Address [facility] Co de Phone Number [facility] [place] [address] * (ABNORMAL) aPTT (05/01/2025 9:31 PM CDT) [facility] aPTT 65(H) 28 - 38 sec Comment: Interpretive Data Heparin therapeutic range: 66.0 - 100.0 seconds. Range based on correlation with therapeutic heparin activity range of 0.3 - 0.7 Units/mL. Current interpretive data was last revised on 2023. Blood 05/01/2025 9:31 PM CDT 05/01/2025 9:49 PM CDT Narrative [facility] - 05/01/2025 10:01 PM CDT STAT PTT [...] drawn peripherally (not from CVC). Libia Suarez PROGRAM SUPPORT CLERK LAB BLOOD ORDERABLES Final Re sult Performing Organization Address [facility] Co de Phone Number [facility] [place] [address] * (ABNORMAL) eGFR (05/01/2025 9:22 PM CDT) [...] CDT 05/01/2025 9:52 PM CDT Dinorah Kahn PROGRAM SUPPORT CLERK LAB BLOOD ORDERABLES Final Result Performing Organization Address City/[facility]/ZIP Co de Phone Number DULCE MARIA ARANDA [facility] Department [place] [address] * (ABNORMAL) CBC without differential (05/01/2025 9:22 PM CDT) WBC 12.62(H) 3.80 - 9.90 K/cumm Hgb 12.0(L) 13.0 - 17.5 g/dL [facility] Hct 37.0(L) 38.9 - 50.3 % [facility] Plt 233 150 - 400 K/cumm [facility] MPV 12.1 9.1 - 12.3 fL [facility] RBC 4.44 4.30 - 5.80 M/cumm [facility] MCV 83.3 81.3 - 96.4 fL [facility] MCH 27.0(L) 27.1 - 33.3 pg [facility] MCHC 32.4 32.3 - 35.7 g/dL [facility] RDW CV 15.6(H) 11.1 - 14.9 % [facility] RDW SD 47.1 35.7 - 48.1 fL [facility] NRBC abs 0.00 0.00 - 0.01 K/cumm [facility] Blood 05/01/2025 9:22 PM CDT 05/01/2025 9:45 PM CDT Libia Suarez PROGRAM SUPPORT CLERK LAB BLOOD ORDERABLES Final Re sult Performing Organization Address City/[facility]/ZIP Co de Phone Number [facility] [place] [address] * Phosphorus (05/01/2025 9:22 PM CDT) Pathologist [facility] Phosphorus, pl 3.7 2.3 - 4.5 mg/dL Blood 05/01/2025 9:22 PM CDT 05/01/2025 9:40 PM CDT Libia Suarez PROGRAM SUPPORT CLERK LAB BLOOD ORDERABLES Final Re sult [facility] [place] [address] * Magnesium (05/01/2025 9:22 PM CDT) Pathologist [facility] Magnesium 2.1 1.4 - 2.5 mg/dL Blood 05/01/2025 9:22 PM CDT 05/01/2025 9:40 PM CDT Libia Suarez PROGRAM SUPPORT CLERK LAB BLOOD ORDERABLES Final Re sult Performing Organization Address City/[facility]/ZIP Co de Phone Number [facility] [place] [address] * (ABNORMAL) Hepatic function panel (05/01/2025 9:22 PM CDT) [facility] Bilirubin, total 0.5 0.1 - 1.2 mg/dL Bilirubin, direct 0.3 0.1 - 0.3 mg/dL [facility] Protein, pl 6.6 6.5 - 8.5 g/dL [facility] Albumin 4.1 3.5 - 5.0 g/dL [facility] Alk phos 265(H) 40 - 130 Units/L [facility] ALT 20 7 - 55 Units/L [facility] AST 22 10 - 50 Units/L [facility] Blood 05/01/2025 9:22 PM CDT 05/01/2025 9:40 PM CDT Libia Suarez PROGRAM SUPPORT CLERK LAB BLOOD ORDERABLES Final Re sult Performing Organization Address [facility] Co de Phone Number [facility] [place] [address] * (ABNORMAL) Basic metabolic panel (05/01/2025 9:22 PM CDT) [facility] Sodium 135 135 - 145 mmol/L Potassium, pl 4.1 3.3 - 4.9 mmol/L [facility] Chloride 95(L) 97 - 110 mmol/L [facility] CO2 28 22 - 32 mmol/L [facility] Anion gap 12 2 - 15 mmol/L [facility] BUN 49(H) 6 - 25 mg/dL [facility] Creatinine 1.94(H) 0.80 - 1.30 mg/dL [facility] Glucose 189 70 - 199 mg/dL [facility] Comment: Interpretive Data Fasting glucose >/= 126 [...] 2022. Calcium 9.8 8.5 - 10.3 mg/dL [facility] Blood 05/01/2025 9:22 PM CDT 05/01/2025 9:40 PM CDT Dinorah Kahn NP LAB BLOOD ORDERABLES Final Result Performing Organization Address [facility] de Phone Number [facility] [place] [address] * Potassium, whole blood (05/01/2025 1:40 PM CDT) Potassium, bld 3.5 3.3 - 4.9 mmol/L Blood 05/01/2025 1:40 PM CDT 05/01/2025 1:49 PM CDT Dinorah Kahn NP LAB BLOOD ORDERABLES Final Result Performing Organization Address [facility] de Phone Number [facility] [place] [address] * Potassium, whole blood (05/01/2025 4:00 AM CDT) Potassium, bld 3.7 3.3 - 4.9 mmol/L Blood 05/01/2025 4:00 AM CDT 05/01/2025 4:08 AM CDT Dinorah Kahn NP LAB BLOOD ORDERABLES Final Result Performing Organization Address [facility] de Phone Number [facility] [place] [address] * (ABNORMAL) eGFR (04/30/2025 8:22 PM CDT) [...] BLOOD ORDERABLES Final Result Performing Organization Address [facility] Co de Phone Number [facility] [place] [address] * (ABNORMAL) aPTT (04/30/2025 8:22 PM CDT) aPTT 60(H) 28 - 38 sec Comment: Interpretive Data Heparin therapeutic range: 66.0 - 100.0 seconds. Range based on correlation with therapeutic heparin activity range of 0.3 - 0.7 Units/mL. Current interpretive data was last revised on 2023. Blood 04/30/2025 8:22 PM CDT 04/30/2025 9:08 PM CDT Narrative [facility] - 04/30/2025 9:18 PM CDT STAT PTT [...] drawn peripherally (not from CVC). Libia Suarez PROGRAM SUPPORT CLERK LAB BLOOD ORDERABLES Final Re sult [facility] [place] [address] * (ABNORMAL) CBC without differential (04/30/2025 8:22 PM CDT) WBC 9.67 3.80 - 9.90 K/cumm Hgb 12.2(L) 13.0 - 17.5 g/dL [facility] Hct 37.4(L) 38.9 - 50.3 % [facility] Plt 207 150 - 400 K/cumm [facility] MPV 12.4(H) 9.1 - 12.3 fL [facility] RBC 4.46 4.30 - 5.80 M/cumm [facility] MCV 83.9 81.3 - 96.4 fL [facility] MCH 27.4 27.1 - 33.3 pg [facility] MCHC 32.6 32.3 - 35.7 g/dL [facility] RDW CV 15.7(H) 11.1 - 14.9 % [facility] RDW SD 48.4(H) 35.7 - 48.1 fL [facility] NRBC abs 0.00 0.00 - 0.01 K/cumm [facility] Blood 04/30/2025 8:22 PM CDT 04/30/2025 9:00 PM CDT Libia Suarez PROGRAM SUPPORT CLERK LAB BLOOD ORDERABLES Final Re sult Performing Organization Address [facility] Co de Phone Number [facility] [place] [employer] [place] [address] * Phosphorus (04/30/2025 8:22 PM CDT) Pathologist [facility] Phosphorus, pl 4.0 2.3 - 4.5 mg/dL Blood 04/30/2025 8:22 PM CDT 04/30/2025 8:59 PM CDT Libia Suarez NP LAB BLOOD ORDERABLES Final Re sult Performing Organization Address [facility] de Phone Number [facility] Department [place] [address] * Magnesium (04/30/2025 8:22 PM CDT) Pathologist [facility] Magnesium 2.0 1.4 - 2.5 mg/dL Blood 04/30/2025 8:22 PM CDT 04/30/2025 8:59 PM CDT Libia Suarez PROGRAM SUPPORT CLERK LAB BLOOD ORDERABLES Final Re sult Performing Organization Address [facility] [place] [address] * (ABNORMAL) Hepatic function panel (04/30/2025 8:22 PM CDT) Bilirubin, total 0.5 0.1 - 1.2 mg/dL Bilirubin, direct 0.3 0.1 - 0.3 mg/dL [facility] Protein, pl 6.5 6.5 - 8.5 g/dL [facility] Albumin 4.1 3.5 - 5.0 g/dL [facility] Alk phos 300(H) 40 - 130 Units/L [facility] ALT 24 7 - 55 Units/L [facility] AST 27 10 - 50 Units/L [facility] Blood 04/30/2025 8:22 PM CDT 04/30/2025 8:59 PM CDT Libia Suarez PROGRAM SUPPORT CLERK LAB BLOOD ORDERABLES Final Re sult [facility] [place] [address] * (ABNORMAL) Basic metabolic panel (04/30/2025 8:22 PM CDT) Sodium 135 135 - 145 mmol/L Potassium, pl 4.7 3.3 - 4.9 mmol/L [facility] Chloride 97 97 - 110 mmol/L [facility] CO2 26 22 - 32 mmol/L [facility] Anion gap 12 2 - 15 mmol/L [facility] BUN 40(H) 6 - 25 mg/dL [facility] Creatinine 1.73(H) 0.80 - 1.30 mg/dL [facility] Glucose 258(H) 70 - 199 mg/dL [facility] Comment: Interpretive Data Fasting glucose >/= 126 [...] 2022. Calcium 9.7 8.5 - 10.3 mg/dL [facility] Blood 04/30/2025 8:22 PM CDT 04/30/2025 8:59 PM CDT us Dinorah Kahn NP LAB BLOOD ORDERABLES Final Result [facility] [place] [address] * Potassium, whole blood (04/30/2025 5:27 PM CDT) [facility] Potassium, bld 4.9 3.3 - 4.9 mmol/L Blood 04/30/2025 5:27 PM CDT 04/30/2025 5:51 PM CDT Dinorah Kahn NP LAB BLOOD ORDERABLES Final Result Performing Organization Address [facility] [place] [address] * Infection Prevention Shady auris PCR, surveillance Axilla/Groin (04/30/2025 9:12 AM CDT) [facility] Shady auris DNA Not Detected Not Detected [facility] Comment: Interpretive Data Testing performed by [facility] Molecular Infectious Disease Laboratory using the Lucas carlos [id number] Shady auris assay. This assay detects DNA from Shady auris using Real-Time PCR. This assay is laboratory developed and is not cleared by the [place] Food and Drug Administration. The performance characteristics have been verified by the [facility] Infectious Disease [facility]. Axilla/Groin 04/30/2025 9:12 AM CDT 04/30/2025 9:51 AM CDT Narrative DULCE MARIA [facility] - 05/01/2025 2:26 AM CDT Order placed by [facility] due to ring surveillance. Instant Order Generic Provider LAB MICROBIOLOGY - GENERAL ORDERABLES Final Result Performing Organization Address City/[facility]/ZIP Co de Phone Number DULCE MARIA [facility] [place] [address] [facility] * Oxyhemoglobin, pulmonary artery (04/30/2025 9:12 AM CDT) Pathologist [facility] Oxyhemoglobin, PA 72.0 % Comment: Interpretive Data No reference range established. Current interpretive data was last revised 2020. Blood 04/30/2025 9:12 AM CDT 04/30/2025 9:21 AM CDT Wang Almaraz MD LAB BLOOD ORDERABLES Final R esult Performing Organization Address City/[facility]/ZIP Co de Phone Number DULCE MARIA [facility] [place] [address] * (ABNORMAL) Hemoglobin total, pulmonary artery (04/30/2025 9:12 AM CDT) Pathologist [facility] Hemoglobin total, PA 12.6(L) 13.0 - 17.5 g/dL Blood 04/30/2025 9:12 AM CDT 04/30/2025 9:21 AM CDT us Wang Almaraz MD LAB BLOOD ORDERABLES Final R esult Performing Organization Address City/[facility] Co de Phone Number DULCE MARIA [facility] Department [place] [address] * (ABNORMAL) eGFR (04/30/2025 9:12 AM CDT) Pathologist [facility] eGFR 56(L) >=60 mL/min/1. 73 m2 Comment: [...] Kahn NP LAB BLOOD ORDERABLES Final Result [facility] [place] [address] * (ABNORMAL) Basic metabolic panel (04/30/2025 9:12 AM CDT) Sodium 136 135 - 145 mmol/L Potassium, pl 3.4 3.3 - 4.9 mmol/L [facility] Chloride 99 97 - 110 mmol/L [facility] CO2 27 22 - 32 mmol/L [facility] Anion gap 10 2 - 15 mmol/L [facility] BUN 33(H) 6 - 25 mg/dL [facility] Creatinine 1.44(H) 0.80 - 1.30 mg/dL [facility] Glucose 227(H) 70 - 199 mg/dL [facility] Comment: Interpretive Data Fasting glucose >/= 126 [...] 2022. Calcium 9.4 8.5 - 10.3 mg/dL [facility] Blood 04/30/2025 9:12 AM CDT 04/30/2025 9:50 AM CDT us Dinorah Kahn NP LAB BLOOD ORDERABLES Final Result [facility] [place] [address] * XR Chest 1 View (04/30/2025 8:50 AM CDT) Anatomical Region Laterality Modality Body, Chest N/A Computed Radiogr aphy 04/30/2025 9:49 AM CDT Impressions 04/30/2025 9:54 AM CDT The current study is compared with the prior radiograph dated 04/29/2025. A Packwood-Jayne catheter is in place, tip overlies the [...] with the prior radiograph dated 04/29/2025. A Packwood-Jayne catheter is in place, tip overlies the [...] 6:01 AM CDT 04/30/2025 6:47 AM CDT Elmira العراقي [facility] - 04/30/2025 7:09 AM CDT STAT PTT [...] drawn peripherally (not from CVC). Libia Suarez PROGRAM SUPPORT CLERK LAB BLOOD ORDERABLES Final Re sult DULCE MARIA ARANDA [facility] [place] [address] * (ABNORMAL) aPTT (04/30/2025 3:36 AM CDT) aPTT 59(H) 28 - 38 sec Comment: Interpretive Data Heparin therapeutic range: 66.0 - 100.0 seconds. Range based on correlation with therapeutic heparin activity range of 0.3 - 0.7 Units/mL. Current interpretive data was last revised on 2023. Blood 04/30/2025 3:36 AM CDT 04/30/2025 3:50 AM CDT Elmira العراقي [facility] - 04/30/2025 4:19 AM CDT STAT PTT [...] Final Re sult DULCE MARIA [facility] [place] [address] * (ABNORMAL) aPTT (04/29/2025 11:45 PM CDT) [facility] Signature aPTT 39(H) 28 - 38 sec Comment: Interpretive Data Heparin therapeutic range: 66.0 - 100.0 seconds. Range based on correlation with therapeutic heparin activity range of 0.3 - 0.7 Units/mL. Current interpretive data was last revised on 2023. Blood 04/29/2025 11:4 5 PM CDT 04/30/2025 12:40 AM CDT [facility] DULCE MARIA [facility] - 04/30/2025 12:52 AM CDT STAT PTT [...] ORDERABLES Final Re sult Performing Organization Address [facility] Co de Phone Number [facility] [place] [address] * Antibody identification (04/29/2025 9:31 PM CDT) Pathologist [facility] Antibody ID 1 Anti-CD38 Comment:Panreactive -CD38 on reagent RBCs reacting with anti-CD38 therapy. DTT treatment removes cell surface CD38 and allows detection of common clinically significant antibodies except those against Dilma antigens. TRANSFUSION 2015;[id number] Blood 04/29/2025 9:31 PM CDT 04/29/2025 9:31 PM CDT us Libia Suarez NP LAB BLOOD BANK TEST ORDERABLE S Final Result Performing Organization Address [facility] de Phone Number [facility] [place] [address] * Oxyhemoglobin, pulmonary artery (04/29/2025 7:58 PM CDT) [facility] Oxyhemoglobin, PA 66.9 % Comment: Interpretive Data No reference range established. Current interpretive data was last revised 2020. Blood 04/29/2025 7:58 PM CDT 04/29/2025 8:25 PM CDT Wang Almaraz MD LAB BLOOD ORDERABLES Final R esult Performing Organization Address [facility] Co de Phone Number [facility] [place] [address] * (ABNORMAL) eGFR (04/29/2025 7:58 PM CDT) [facility] eGFR 49(L) >=60 mL/min/1. 73 m2 Comment: [...] Kahn NP LAB BLOOD ORDERABLES Final Result [facility] [place] [address] * (ABNORMAL) Differential, auto (04/29/2025 7:58 PM CDT) Neutrophil abs 6.85(H) 1.50 - 6.50 K/cumm Imm gran abs 0.03 0.00 - 0.10 K/cumm [facility] Lymphocyte abs 0.79(L) 0.80 - 3.30 K/cumm [facility] Monocyte abs 0.55 0.20 - 0.80 K/cumm [facility] Eosinophil abs 0.15 0.00 - 0.50 K/cumm [facility] Basophil abs 0.04 0.00 - 0.10 K/cumm [facility] Neutrophil pct 81.4 % [facility] Comment: Interpretive Data Percent cell count reference ranges are not reported, since discordance with absolute values may lead to misinterpretation of CBC data. Current Interpretive Data was last revised on 2018. Imm gran pct 0.4 % [facility] Comment: Interpretive Data Percent cell count reference ranges are not reported, since discordance with absolute values may lead to misinterpretation of CBC data. Current Interpretive Data was last revised on 2018. Lymphocyte pct 9.4 % [facility] Comment: Interpretive Data Percent cell count reference ranges are not reported, since discordance with absolute values may lead to misinterpretation of CBC data. Current Interpretive Data was last revised on 2018. Monocyte pct 6.5 % DULCE MARIA [facility] Comment: Interpretive Data Percent cell count reference ranges are not reported, since discordance with absolute values may lead to misinterpretation of CBC data. Current Interpretive Data was last revised on 2018. Eosinophil pct 1.8 % DULCE MARIA [facility] Comment: Interpretive Data Percent cell count reference ranges are not reported, since discordance with absolute values may lead to misinterpretation of CBC data. Current Interpretive Data was last revised on 2018. Basophil pct 0.5 % DULCE MARIA [facility] Comment: Interpretive Data Percent cell count reference ranges are not reported, since discordance with absolute values may lead to misinterpretation of CBC data. Current Interpretive Data was last revised on 2018. Blood 04/29/2025 7:58 PM CDT 04/29/2025 8:30 PM CDT Vannesa Gibbs MD LAB BLOOD ORDERABLES Fi nal Result [facility] [place] [address] * CBC with auto differential (04/29/2025 7:58 PM CDT) WBC See Comment 380 - 990 Comment:Credited, duplicate test. Hgb See Comment 13.0 - 17.5 [employer] [facility] Comment:Credited, duplicate test. Hct See Comment 38.9 - 50.3 [employer] [facility] [facility] Comment:Credited, duplicate test. Plt See Comment 150 - 400 [facility] Comment:Credited, duplicate test. RBC See Comment 4.30 - 5.80 [employer] [facility] Comment:Credited, duplicate test. MCV See Comment 81.3 - 96.4 [employer] [facility] Comment:Credited, duplicate test. MCH See Comment 27.1 - 33.3 [facility] Comment:Credited, duplicate test. [facility] See Comment 32.3 - 35.7 [facility] Comment:Credited, duplicate test. Blood 04/29/2025 7:5 8 PM CDT 04/29/2025 8:30 PM CDT Vannesa Gibbs MD LAB BLOOD ORDERABLES Fi nal Result Performing Organization Address [facility]/ZIP Co de Phone Number [facility] Department [place] [address] * (ABNORMAL) aPTT (04/29/2025 7:58 PM CDT) [facility] aPTT 49(H) 28 - 38 sec Comment: Interpretive Data Heparin therapeutic range: 66.0 - 100.0 seconds. Range based on correlation with therapeutic heparin activity range of 0.3 - 0.7 Units/mL. Current interpretive data was last revised on 2023. Blood 04/29/2025 7:58 PM CDT 04/29/2025 8:32 PM CDT Narrative [facility] - 04/29/2025 8:42 PM CDT STAT PTT [...] ORDERABLES Final Re sult Performing Organization Address [facility]/ZIP Co de Phone Number [facility] [place] [address] * (ABNORMAL) CBC without differential (04/29/2025 7:58 PM CDT) WBC 8.43 3.80 - 9.90 K/cumm Hgb 12.1(L) 13.0 - 17.5 g/dL [facility] Hct 37.0(L) 38.9 - 50.3 % [facility] Plt 187 150 - 400 K/cumm [facility] MPV 11.9 9.1 - 12.3 fL [facility] RBC 4.48 4.30 - 5.80 M/cumm [facility] MCV 82.6 81.3 - 96.4 fL [facility] MCH 27.0(L) 27.1 - 33.3 pg [facility] MCHC 32.7 32.3 - 35.7 g/dL [facility] RDW CV 15.8(H) 11.1 - 14.9 % [facility] RDW SD 48.1 35.7 - 48.1 fL [facility] NRBC abs 0.00 0.00 - 0.01 K/cumm [facility] Blood 04/29/2025 7:58 PM CDT 04/29/2025 8:27 PM CDT Libia Suarez NP LAB BLOOD ORDERABLES Final Re sult [facility] [place] [address] * (ABNORMAL) Type and screen (04/29/2025 7:58 PM CDT) Pathologist [facility] ABO Rh O Positive Poppy, indirect Positive(A) [facility] Blood 04/29/2025 7:58 PM CDT 04/29/2025 8:29 PM CDT Narrative [facility] - 04/29/2025 9:31 PM CDT Has the patient had Daratumumab or Isatuximab in the past 6 months?->Unknown Libia Suarez NP LAB BLOOD BANK TEST ORDERABLE S Final Result Performing Organization Address [facility] Co de Phone Number [facility] [place] [employer] [place] [address] * Phosphorus (04/29/2025 7:58 PM CDT) Phosphorus, pl 3.6 2.3 - 4.5 mg/dL Blood 04/29/2025 7:58 PM CDT 04/29/2025 8:27 PM CDT Libia Suarez NP LAB BLOOD ORDERABLES Final Re sult Performing Organization Address [facility] Co de Phone Number [facility] [place] [employer] [place] [address] * Magnesium (04/29/2025 7:58 PM CDT) Pathologist [facility] Magnesium 2.0 1.4 - 2.5 mg/dL Blood 04/29/2025 7:58 PM CDT 04/29/2025 8:27 PM CDT Libia Suarez PROGRAM SUPPORT CLERK LAB BLOOD ORDERABLES Final Re sult Performing Organization Address [facility] Co de Phone Number [facility] [place] [address] * (ABNORMAL) Hepatic function panel (04/29/2025 7:58 PM CDT) Bilirubin, total 0.6 0.1 - 1.2 mg/dL Bilirubin, direct 0.3 0.1 - 0.3 mg/dL [facility] Protein, pl 6.4(L) 6.5 - 8.5 g/dL [facility] Albumin 4.0 3.5 - 5.0 g/dL [facility] Alk phos 283(H) 40 - 130 Units/L [facility] ALT 19 7 - 55 Units/L [facility] AST 20 10 - 50 Units/L [facility] Blood 04/29/2025 7:58 PM CDT 04/29/2025 8:27 PM CDT Libia Suarez PROGRAM SUPPORT CLERK LAB BLOOD ORDERABLES Final Re sult [facility] [place] [address] * (ABNORMAL) Basic metabolic panel (04/29/2025 7:58 PM CDT) [facility] Sodium 137 135 - 145 mmol/L Potassium, pl 3.7 3.3 - 4.9 mmol/L [facility] Chloride 99 97 - 110 mmol/L [facility] CO2 28 22 - 32 mmol/L [facility] Anion gap 10 2 - 15 mmol/L [facility] BUN 34(H) 6 - 25 mg/dL [facility] Creatinine 1.59(H) 0.80 - 1.30 mg/dL [facility] Glucose 159 70 - 199 mg/dL [facility] Comment: Interpretive Data Fasting glucose >/= 126 [...] 2022. Calcium 9.5 8.5 - 10.3 mg/dL [facility] Blood 04/29/2025 7:58 PM CDT 04/29/2025 8:27 PM CDT Dinorah Kahn PROGRAM SUPPORT CLERK LAB BLOOD ORDERABLES Final Result Performing Organization Address City/[facility]/ZIP Co de Phone Number [facility] [place] [address] * XR Chest 1 View (04/29/2025 10:38 AM CDT) Anatomical Region Laterality Modality Body, Chest N/A Computed Radiogr aphy 04/29/2025 11:3 6 AM CDT Impressions 04/29/2025 11:36 AM CDT The current study is compared with the prior radiograph dated 04/28/2025. Right peripherally inserted central venous catheter tip at the superior vena cava. A Packwood-Jayne catheter is in place, tip overlies the [...] tip at the superior vena cava. A Packwood-Jayne catheter is in place, tip overlies the main pulmonary artery. Small bilateral pleural effusions with mild bibasilar atelectasis. No pneumothorax. Heart size is within normal limits. Dictated by: Neel Nelson MD The radiology attending physician has personally reviewed this study, and had reviewed and/or edited this written report and agrees with it. Electronically signed by: Juanito Brandt M.D. Dinorah Kahn PROGRAM SUPPORT CLERK IMG XR PROCEDURES Final Res ult * Oxyhemoglobin, pulmonary artery (04/29/2025 7:58 AM CDT) Oxyhemoglobin, PA 60.7 % Comment: Interpretive Data No reference range established. Current interpretive data was last revised 2020. Blood 04/29/2025 7:58 AM CDT 04/29/2025 8:13 AM CDT Wang Almaraz MD LAB BLOOD ORDERABLES Final R esult Performing Organization Address [facility] Co de Phone Number [facility] [place] [employer] [place] [address] * (ABNORMAL) Hemoglobin total, pulmonary artery (04/29/2025 7:58 AM CDT) Hemoglobin total, PA 12.4(L) 13.0 - 17.5 g/dL Blood 04/29/2025 7:58 AM CDT 04/29/2025 8:13 AM CDT Wang Almaraz MD LAB BLOOD ORDERABLES Final R esult Performing Organization Address [facility] Co de Phone Number [facility] Department [place] [address] * (ABNORMAL) Lactate (04/29/2025 7:58 AM CDT) Pathologist [facility] Lactate 0.6(L) 0.7 - 2.0 mmol/L Blood 04/29/2025 7:58 AM CDT 04/29/2025 8:18 AM CDT Libia Suarez NP LAB BLOOD ORDERABLES Final Re sult Performing Organization Address [facility] Co de Phone Number [facility] [employer] [place] [address] * eGFR (04/29/2025 7:58 AM CDT) eGFR [...] ORDERABLES Final Re sult Performing Organization Address [facility] Co de Phone Number [facility] [place] [employer] [place] [address] * Magnesium (04/29/2025 7:58 AM CDT) [facility] Magnesium 2.1 1.4 - 2.5 mg/dL Blood 04/29/2025 7:58 AM CDT 04/29/2025 8:18 AM CDT Libia Suarez NP LAB BLOOD ORDERABLES Final Re sult Performing Organization Address [facility] Co de Phone Number [facility] [employer] [place] [address] * (ABNORMAL) Comprehensive metabolic panel (04/29/2025 7:58 AM CDT) Pathologist [facility] Sodium 138 135 - 145 mmol/L Potassium, pl 4.0 3.3 - 4.9 mmol/L [facility] Chloride 101 97 - 110 mmol/L [facility] CO2 27 22 - 32 mmol/L [facility] Anion gap 10 2 - 15 mmol/L [facility] BUN 31(H) 6 - 25 mg/dL [facility] Creatinine 1.36(H) 0.80 - 1.30 mg/dL [facility] Glucose 114 70 - 199 mg/dL [facility] Comment: Interpretive Data Fasting glucose >/= 126 [...] 2022. Calcium 9.4 8.5 - 10.3 mg/dL [facility] Bilirubin, total 0.7 0.1 - 1.2 mg/dL [facility] Protein, pl 6.1(L) 6.5 - 8.5 g/dL [facility] Albumin 3.8 3.5 - 5.0 g/dL [facility] Alk phos 264(H) 40 - 130 Units/L [facility] ALT 18 7 - 55 Units/L [facility] AST 22 10 - 50 Units/L [facility] Blood 04/29/2025 7:58 AM CDT 04/29/2025 8:18 AM CDT Libia Suarez PROGRAM SUPPORT CLERK LAB BLOOD ORDERABLES Final Re sult [facility] [place] [address] * Oxyhemoglobin, pulmonary artery (04/28/2025 9:58 PM CDT) Oxyhemoglobin, PA 54.5 % Comment: Interpretive Data No reference range established. Current interpretive data was last revised 2020. Blood 04/28/2025 9:58 PM CDT 04/28/2025 10:13 PM CDT Wang Almaraz MD LAB BLOOD ORDERABLES Final R esult [facility] [place] [address] * Hemoglobin total, pulmonary artery (04/28/2025 9:58 PM CDT) Hemoglobin total, PA 13.6 13.0 - 17.5 g/dL Blood 04/28/2025 9:58 PM CDT 04/28/2025 10:13 PM CDT Wang Almaraz MD LAB BLOOD ORDERABLES Final R esult Performing Organization Address City/[facility]/ZIP Co de Phone Number DULCE MARIA [facility] [place] [address] * (ABNORMAL) eGFR (04/28/2025 9:58 PM CDT) eGFR 47(L) >=60 mL/min/1. 73 [...] CDT 04/28/2025 10:15 PM CDT Dinorah Kahn PROGRAM SUPPORT CLERK LAB BLOOD ORDERABLES Final Result Performing Organization Address [facility]/ZIP Co de Phone Number [facility] Department [place] [address] * (ABNORMAL) aPTT (04/28/2025 9:58 PM CDT) Pathologist [facility] aPTT 62(H) 28 - 38 sec Comment: Interpretive Data Heparin therapeutic range: 66.0 - 100.0 seconds. Range based on correlation with therapeutic heparin activity range of 0.3 - 0.7 Units/mL. Current interpretive data was last revised on 2023. Blood 04/28/2025 9:58 PM CDT 04/28/2025 10:16 PM CDT Narrative [facility] - 04/28/2025 10:25 PM CDT STAT PTT [...] drawn peripherally (not from CVC). Libia Suarez PROGRAM SUPPORT CLERK LAB BLOOD ORDERABLES Final Re sult [facility] [place] [address] * (ABNORMAL) CBC without differential (04/28/2025 9:58 PM CDT) [facility] WBC 8.88 3.80 - 9.90 K/cumm Hgb 12.8(L) 13.0 - 17.5 g/dL [facility] Hct 39.8 38.9 - 50.3 % [facility] Plt 216 150 - 400 K/cumm [facility] MPV 11.7 9.1 - 12.3 fL [facility] RBC 4.74 4.30 - 5.80 M/cumm [facility] MCV 84.0 81.3 - 96.4 fL [facility] MCH 27.0(L) 27.1 - 33.3 pg [facility] MCHC 32.2(L) 32.3 - 35.7 g/dL [facility] RDW CV 15.9(H) 11.1 - 14.9 % [facility] RDW SD 49.0(H) 35.7 - 48.1 fL [facility] NRBC abs 0.00 0.00 - 0.01 K/cumm [facility] Blood 04/28/2025 9:58 PM CDT 04/28/2025 10:15 PM CDT Libia Suarez PROGRAM SUPPORT CLERK LAB BLOOD ORDERABLES Final Re sult Performing Organization Address City/[facility]/ZIP Co de Phone Number [facility] [place] [address] * Phosphorus (04/28/2025 9:58 PM CDT) Phosphorus, pl 3.6 2.3 - 4.5 mg/dL Blood 04/28/2025 9:58 PM CDT 04/28/2025 10:15 PM CDT Libia Suarez PROGRAM SUPPORT CLERK LAB BLOOD ORDERABLES Final Re sult [facility] [place] [address] * Magnesium (04/28/2025 9:58 PM CDT) Magnesium 2.2 1.4 - 2.5 mg/dL Blood 04/28/2025 9:58 PM CDT 04/28/2025 10:15 PM CDT Libia Suarez PROGRAM SUPPORT CLERK LAB BLOOD ORDERABLES Final Re sult Performing Organization Address [facility] Co de Phone Number [facility] [place] [address] * (ABNORMAL) Hepatic function panel (04/28/2025 9:58 PM CDT) [facility] Bilirubin, total 0.6 0.1 - 1.2 mg/dL Bilirubin, direct 0.3 0.1 - 0.3 mg/dL [facility] Protein, pl 6.5 6.5 - 8.5 g/dL [facility] Albumin 4.1 3.5 - 5.0 g/dL [facility] Alk phos 285(H) 40 - 130 Units/L [facility] ALT 21 7 - 55 Units/L [facility] AST 20 10 - 50 Units/L [facility] Blood 04/28/2025 9:58 PM CDT 04/28/2025 10:15 PM CDT Libia Suarez PROGRAM SUPPORT CLERK LAB BLOOD ORDERABLES Final Re sult Performing Organization Address [facility] de Phone Number [facility] [place] [address] * (ABNORMAL) Basic metabolic panel (04/28/2025 9:58 PM CDT) Pathologist [facility] Sodium 138 135 - 145 mmol/L Potassium, pl 4.4 3.3 - 4.9 mmol/L [facility] Chloride 98 97 - 110 mmol/L [facility] CO2 28 22 - 32 mmol/L [facility] Anion gap 12 2 - 15 mmol/L [facility] BUN 36(H) 6 - 25 mg/dL [facility] Creatinine 1.65(H) 0.80 - 1.30 mg/dL [facility] Glucose 134 70 - 199 mg/dL [facility] Comment: Interpretive Data Fasting glucose >/= 126 [...] 2022. Calcium 9.3 8.5 - 10.3 mg/dL [facility] Blood 04/28/2025 9:58 PM CDT 04/28/2025 10:15 PM CDT Dinorah Kahn NP LAB BLOOD ORDERABLES Final Result Performing Organization Address City/[facility] Co de Phone Number [facility] Department [place] [address] * Potassium, whole blood (04/28/2025 12:19 PM CDT) Potassium, bld 4.3 3.3 - 4.9 mmol/L Blood 04/28/2025 12:1 9 PM CDT 04/28/2025 12:50 PM CDT Dinorah Kahn NP LAB BLOOD ORDERABLES Final Result Performing Organization Address City/[facility] Co de Phone Number [facility] [place] [address] * Oxyhemoglobin, pulmonary artery (04/28/2025 8:22 AM CDT) Oxyhemoglobin, PA 66.4 % Comment: Interpretive Data No reference range established. Current interpretive data was last revised 2020. Blood 04/28/2025 8:22 AM CDT 04/28/2025 8:38 AM CDT us Wang Almaraz MD LAB BLOOD ORDERABLES Final R esult [facility] [place] [address] * (ABNORMAL) Hemoglobin total, pulmonary artery (04/28/2025 8:22 AM CDT) Hemoglobin total, PA 12.2(L) 13.0 - 17.5 g/dL Blood 04/28/2025 8:22 AM CDT 04/28/2025 8:38 AM CDT Wang Almaraz MD LAB BLOOD ORDERABLES Final R esult Performing Organization Address City/[facility] Co de Phone Number [facility] [place] [address] * eGFR (04/28/2025 8:22 AM CDT) eGFR [...] LAB BLOOD ORDERABLES Final Result DULCE MARIA [facility] Department [place] [address] * (ABNORMAL) Basic metabolic panel (04/28/2025 8:22 AM CDT) Sodium 138 135 - 145 mmol/L Potassium, pl 3.9 3.3 - 4.9 mmol/L [facility] Chloride 101 97 - 110 mmol/L [facility] CO2 26 22 - 32 mmol/L [facility] Anion gap 11 2 - 15 mmol/L [facility] BUN 27(H) 6 - 25 mg/dL [facility] Creatinine 1.21 0.80 - 1.30 mg/dL [facility] Glucose 172 70 - 199 mg/dL [facility] Comment: Interpretive Data Fasting glucose >/= 126 [...] 2022. Calcium 8.6 8.5 - 10.3 mg/dL [facility] Blood 04/28/2025 8:22 AM CDT 04/28/2025 8:41 AM CDT us Dinorah Kahn NP LAB BLOOD ORDERABLES Final Result Performing Organization Address [facility]/ZIP Co de Phone Number DULCE MARIA [facility] Department [place] [address] * XR Chest 1 View (04/28/2025 8:10 AM CDT) Anatomical Region Laterality Modality Body, Chest N/A Computed Radiogr aphy 04/29/2025 10:2 4 AM CDT Impressions 04/29/2025 11:03 AM CDT Comparison with 04/27/2025. Left internal jugular Packwood-Jayne catheter in the proximal right pulmonary artery. [...] IMPRESSION: Comparison with 04/27/2025. Left internal jugular Packwood-Jayne catheter in the proximal right pulmonary artery. Right peripherally inserted central venous catheter at the superior cavoatrial junction. Unchanged small bilateral pleural effusions with subsegmental atelectasis. No pneumothorax. Stable cardiomediastinal silhouette. Dictated by: Magali Cotton MD The radiology attending physician has personally reviewed this study, and had reviewed and/or edited this written report and agrees with it. Electronically signed by: Juanito Brandt M.D. Dinorah Kahn NP IMG XR PROCEDURES Final Res ult * Potassium, whole blood (04/28/2025 6:33 AM CDT) Potassium, bld 3.8 3.3 - 4.9 mmol/L Blood 04/28/2025 6:33 AM CDT 04/28/2025 6:45 AM CDT Dinorah Kahn NP LAB BLOOD ORDERABLES Final Result [facility] [place] [address] * Oxyhemoglobin, pulmonary artery (04/27/2025 9:06 PM CDT) Pathologist [facility] Oxyhemoglobin, PA 57.7 % Comment: Interpretive Data No reference range established. Current interpretive data was last revised 2020. Blood 04/27/2025 9:06 PM CDT 04/27/2025 9:21 PM CDT us Wang Almaraz MD LAB BLOOD ORDERABLES Final R esult D[facility] MAR[facility] [place] [address] * (ABNORMAL) Hemoglobin total, pulmonary artery (04/27/2025 9:06 PM CDT) [facility] Hemoglobin total, PA 12.6(L) 13.0 - 17.5 g/dL Blood 04/27/2025 9:06 PM CDT 04/27/2025 9:21 PM CDT us Wang Almaraz MD LAB BLOOD ORDERABLES Final R esult DULCE MARIA [facility] Department [place] [address] * eGFR (04/27/2025 9:06 PM CDT) Pathologist [facility] eGFR 61 >=60 mL/min/1. 73 m2 Comment: [...] 04/27/2025 9:21 PM CDT us Dinorah Kahn PROGRAM SUPPORT CLERK LAB BLOOD ORDERABLES Final Result [facility] MAR[facility] [place] [address] * (ABNORMAL) aPTT (04/27/2025 9:06 PM CDT) aPTT 60(H) 28 - 38 sec Comment: Interpretive Data Heparin therapeutic range: 66.0 - 100.0 seconds. Range based on correlation with therapeutic heparin activity range of 0.3 - 0.7 Units/mL. Current interpretive data was last revised on 2023. Blood 04/27/2025 9:06 PM CDT 04/27/2025 9:36 PM CDT Narrative [facility] - 04/27/2025 9:45 PM CDT STAT PTT [...] drawn peripherally (not from CVC). Libia Suarez PROGRAM SUPPORT CLERK LAB BLOOD ORDERABLES Final Re sult Performing Organization Address [facility] de Phone Number [facility] [place] [address] * (ABNORMAL) CBC without differential (04/27/2025 9:06 PM CDT) Pathologist [facility] WBC 7.86 3.80 - 9.90 K/cumm Hgb 12.3(L) 13.0 - 17.5 g/dL [facility] Hct 37.6(L) 38.9 - 50.3 % [facility] Plt 219 150 - 400 K/cumm [facility] MPV 11.8 9.1 - 12.3 fL [facility] RBC 4.57 4.30 - 5.80 M/cumm [facility] MCV 82.3 81.3 - 96.4 fL [facility] MCH 26.9(L) 27.1 - 33.3 pg [facility] MCHC 32.7 32.3 - 35.7 g/dL [facility] RDW CV 15.9(H) 11.1 - 14.9 % [facility] RDW SD 47.8 35.7 - 48.1 fL [facility] NRBC abs 0.00 0.00 - 0.01 K/cumm [facility] Blood 04/27/2025 9:06 PM CDT 04/27/2025 9:22 PM CDT Libia Suarez NP LAB BLOOD ORDERABLES Final Re sult Performing Organization Address [facility] Co de Phone Number [facility] [place] [address] * Phosphorus (04/27/2025 9:06 PM CDT) Pathologist [facility] Phosphorus, pl 3.9 2.3 - 4.5 mg/dL Blood 04/27/2025 9:06 PM CDT 04/27/2025 9:21 PM CDT us Libia Suarez PROGRAM SUPPORT CLERK LAB BLOOD ORDERABLES Final Re sult [facility] [place] [address] * Magnesium (04/27/2025 9:06 PM CDT) [facility] Magnesium 2.2 1.4 - 2.5 mg/dL Blood 04/27/2025 9:06 PM CDT 04/27/2025 9:21 PM CDT Libia Suarez PROGRAM SUPPORT CLERK LAB BLOOD ORDERABLES Final Re sult Performing Organization Address [facility] Co de Phone Number DULCE MARIA [facility] [place] [address] * (ABNORMAL) Hepatic function panel (04/27/2025 9:06 PM CDT) [facility] Bilirubin, total 0.6 0.1 - 1.2 mg/dL Bilirubin, direct 0.3 0.1 - 0.3 mg/dL [facility] Protein, pl 6.1(L) 6.5 - 8.5 g/dL [facility] Albumin 3.9 3.5 - 5.0 g/dL [facility] Alk phos 264(H) 40 - 130 Units/L [facility] ALT 21 7 - 55 Units/L [facility] AST 24 10 - 50 Units/L [facility] Blood 04/27/2025 9:06 PM CDT 04/27/2025 9:21 PM CDT Libia Suarez PROGRAM SUPPORT CLERK LAB BLOOD ORDERABLES Final Re sult DULCE MARIA [facility] Department [place] [address] * (ABNORMAL) Basic metabolic panel (04/27/2025 9:06 PM CDT) [facility] Sodium 137 135 - 145 mmol/L Potassium, pl 4.2 3.3 - 4.9 mmol/L [facility] Chloride 97 97 - 110 mmol/L [facility] CO2 29 22 - 32 mmol/L [facility] Anion gap 11 2 - 15 mmol/L [facility] BUN 34(H) 6 - 25 mg/dL [facility] Creatinine 1.33(H) 0.80 - 1.30 mg/dL [facility] Glucose 123 70 - 199 mg/dL [facility] Comment: Interpretive Data Fasting glucose >/= 126 [...] 2022. Calcium 9.2 8.5 - 10.3 mg/dL [facility] Blood 04/27/2025 9:06 PM CDT 04/27/2025 9:21 PM CDT us Dinorah Kahn NP LAB BLOOD ORDERABLES Final Result Performing Organization Address [facility] Co de Phone Number [facility] [place] [address] * Oxyhemoglobin, pulmonary artery (04/27/2025 8:55 AM CDT) Oxyhemoglobin, PA 64.0 % Comment: Interpretive Data No reference range established. Current interpretive data was last revised 2020. Blood 04/27/2025 8:55 AM CDT 04/27/2025 9:08 AM CDT us Wang Almaraz MD LAB BLOOD ORDERABLES Final R esult Performing Organization Address City/[facility]/ZIP Co de Phone Number [facility] [place] [address] * (ABNORMAL) Hemoglobin total, pulmonary artery (04/27/2025 8:55 AM CDT) Hemoglobin total, PA 12.4(L) 13.0 - 17.5 g/dL Blood 04/27/2025 8:55 AM CDT 04/27/2025 9:08 AM CDT us Wang Almaraz MD LAB BLOOD ORDERABLES Final R esult [facility] [place] [address] * eGFR (04/27/2025 8:55 AM CDT) eGFR [...] BLOOD ORDERABLES Final Result DULCE MARIA ARANDA [facility] [place] [address] * (ABNORMAL) Lactate, whole blood (04/27/2025 8:55 AM CDT) Pathologist [facility] Lactate, bld 2.1(H) 0.7 - 2.0 mmol/L Blood 04/27/2025 8:55 AM CDT 04/27/2025 9:08 AM CDT Vannesa Gibbs MD LAB BLOOD ORDERABLES nal Result [employer] [facility] [place] [address] * (ABNORMAL) Basic metabolic panel (04/27/2025 8:55 AM CDT) [facility] Sodium 135 135 - 145 mmol/L Potassium, pl 4.2 3.3 - 4.9 mmol/L [facility] Chloride 97 97 - 110 mmol/L [facility] CO2 28 22 - 32 mmol/L [facility] Anion gap 10 2 - 15 mmol/L [facility] BUN 30(H) 6 - 25 mg/dL [facility] Creatinine 1.28 0.80 - 1.30 mg/dL [facility] Glucose 186 70 - 199 mg/dL [facility] Comment: Interpretive Data Fasting glucose >/= 126 [...] 2022. Calcium 9.4 8.5 - 10.3 mg/dL [facility] [facility] Blood 04/27/2025 8:55 AM CDT 04/27/2025 9:09 AM CDT us Dinorah Kahn NP LAB BLOOD ORDERABLES Final Result DULCE MARIA [facility] [place] [address] * XR Chest 1 View (04/27/2025 8:23 AM CDT) Anatomical Region Laterality Modality Body, Chest N/A Computed Radiogr aphy 04/27/2025 3:50 PM CDT Impressions 04/27/2025 3:50 PM CDT Comparison to 04/26/2025. Left internal jugular Packwood-Jayne catheter terminates in right pulmonary artery. Right [...] IMPRESSION: Comparison to 04/26/2025. Left internal jugular Packwood-Jayne catheter terminates in right pulmonary artery. Right [...] antibodies except those against Dilma antigens. TRANSFUSION 2015;[id number] Blood 04/27/2025 12:3 0 AM CDT 04/27/2025 12:30 AM CDT us Libia Suarez PROGRAM SUPPORT CLERK LAB BLOOD BANK TEST ORDERABLE S Final Result Performing Organization Address [facility] Co de Phone Number [facility] [place] [address] * Oxyhemoglobin, pulmonary artery (04/26/2025 10:18 PM CDT) Oxyhemoglobin, PA 66.6 % Comment: Interpretive Data No reference range established. Current interpretive data was last revised 2020. Blood 04/26/2025 10:1 8 PM CDT 04/26/2025 10:33 PM CDT us Wang Almaraz MD LAB BLOOD ORDERABLES Final R esult Performing Organization Address [facility] Co de Phone Number [employer] [facility] [place] [employer] [place] [address] * (ABNORMAL) Hemoglobin total, pulmonary artery (04/26/2025 10:18 PM CDT) Hemoglobin total, PA 12.8(L) 13.0 - 17.5 g/dL Blood 04/26/2025 10:1 8 PM CDT 04/26/2025 10:33 PM CDT us Wang Almaraz MD LAB BLOOD ORDERABLES Final R esult Performing Organization Address [facility] Co de Phone Number [facility] [employer] [place] [address] * eGFR (04/26/2025 10:18 PM CDT) eGFR [...] LAB BLOOD ORDERABLES Final Result [facility] [place] [address] * Lactate, whole blood (04/26/2025 10:18 PM CDT) Lactate, bld 0.8 0.7 - 2.0 mmol/L Blood 04/26/2025 10:1 8 PM CDT 04/26/2025 10:33 PM CDT us Wang Almaraz MD LAB BLOOD ORDERABLES Final R esult DULCE MARIA [facility] [place] [address] * (ABNORMAL) aPTT (04/26/2025 10:18 PM CDT) aPTT 61(H) 28 - 38 sec Comment: Interpretive Data Heparin therapeutic range: 66.0 - 100.0 seconds. Range based on correlation with therapeutic heparin activity range of 0.3 - 0.7 Units/mL. Current interpretive data was last revised on 2023. Blood 04/26/2025 10:1 8 PM CDT 04/26/2025 10:38 PM CDT Narrative [facility] - 04/26/2025 10:47 PM CDT STAT PTT [...] peripherally (not from CVC). us Libia Suarez PROGRAM SUPPORT CLERK LAB BLOOD ORDERABLES Final Re sult [facility] [place] [address] * (ABNORMAL) CBC without differential (04/26/2025 10:18 PM CDT) [facility] WBC 7.97 3.80 - 9.90 K/cumm Hgb 12.3(L) 13.0 - 17.5 g/dL [facility] Hct 38.2(L) 38.9 - 50.3 % [facility] Plt 212 150 - 400 K/cumm [facility] MPV 11.8 9.1 - 12.3 fL [facility] RBC 4.55 4.30 - 5.80 M/cumm [facility] MCV 84.0 81.3 - 96.4 fL [facility] MCH 27.0(L) 27.1 - 33.3 pg [facility] MCHC 32.2(L) 32.3 - 35.7 g/dL [facility] RDW CV 15.9(H) 11.1 - 14.9 % [facility] RDW SD 48.7(H) 35.7 - 48.1 fL [facility] NRBC abs 0.00 0.00 - 0.01 K/cumm [facility] Blood 04/26/2025 10:1 8 PM CDT 04/26/2025 11:25 PM CDT Libia Suarez NP LAB BLOOD ORDERABLES Final Re sult Performing Organization Address [facility] Co de Phone Number [facility] [place] [address] * (ABNORMAL) Type and screen (04/26/2025 10:18 PM CDT) Poppy, indirect Positive(A) ABO Rh O Positive [facility] Blood 04/26/2025 10:1 8 PM CDT 04/26/2025 11:06 PM CDT Narrative [facility] - 04/27/2025 12:30 AM CDT Has the patient had Daratumumab or Isatuximab in the past 6 months?->Unknown Libia Suarez NP LAB BLOOD BANK TEST ORDERABLE S Final Result Performing Organization Address [facility] Co de Phone Number [facility] [place] [address] * Phosphorus (04/26/2025 10:18 PM CDT) Phosphorus, pl 4.3 2.3 - 4.5 mg/dL Blood 04/26/2025 10:1 8 PM CDT 04/26/2025 10:37 PM CDT Libia Suarez NP LAB BLOOD ORDERABLES Final Re sult Performing Organization Address [facility]/ZIP Co de Phone Number [facility] Department [place] [address] * Magnesium (04/26/2025 10:18 PM CDT) [facility] Magnesium 2.2 1.4 - 2.5 mg/dL Blood 04/26/2025 10:1 8 PM CDT 04/26/2025 10:37 PM CDT Libia Suarez PROGRAM SUPPORT CLERK LAB BLOOD ORDERABLES Final Re sult Performing Organization Address [facility]/[place] [address] * (ABNORMAL) Hepatic function panel (04/26/2025 10:18 PM CDT) [facility] Bilirubin, total 0.6 0.1 - 1.2 mg/dL Bilirubin, direct 0.3 0.1 - 0.3 mg/dL [facility] Protein, pl 6.1(L) 6.5 - 8.5 g/dL [facility] Albumin 3.7 3.5 - 5.0 g/dL [facility] Alk phos 272(H) 40 - 130 Units/L [facility] ALT 21 7 - 55 Units/L [facility] AST 22 10 - 50 Units/L [facility] Blood 04/26/2025 10:1 8 PM CDT 04/26/2025 10:37 PM CDT Libia Suarez PROGRAM SUPPORT CLERK LAB BLOOD ORDERABLES Final Re sult [facility] [employer] [place] [address] * (ABNORMAL) Basic metabolic panel (04/26/2025 10:18 PM CDT) [facility] Sodium 136 135 - 145 mmol/L Potassium, pl 4.5 3.3 - 4.9 mmol/L [facility] Chloride 99 97 - 110 mmol/L [facility] CO2 28 22 - 32 mmol/L [facility] Anion gap 9 2 - 15 mmol/L [facility] BUN 32(H) 6 - 25 mg/dL [facility] Creatinine 1.35(H) 0.80 - 1.30 mg/dL [facility] Glucose 129 70 - 199 mg/dL [facility] Comment: Interpretive Data Fasting glucose >/= 126 [...] 2022. Calcium 9.4 8.5 - 10.3 mg/dL [facility] Blood 04/26/2025 10:1 8 PM CDT 04/26/2025 10:37 PM CDT us Dinorah Kahn NP LAB BLOOD ORDERABLES Final Result [facility] [place] [address] * Infection Prevention Shady auris PCR, surveillance Axilla/Groin (04/26/2025 12:42 PM CDT) Shady auris DNA Not Detected Not Detected [facility] Comment: Interpretive Data Testing performed by [facility] Molecular Infectious Disease [facility] using the Lucas carlos [id number] Shady auris assay. This assay detects DNA from Shady auris using Real-Time PCR. This assay is laboratory developed and is not cleared by the [place] Food and Drug Administration. The performance characteristics have been verified by the [facility]ious Disease [facility]. Axilla/Groin 04/26/2025 12:4 2 PM CDT 04/26/2025 1:06 PM CDT Narrative DULCE MARIA HAIR - 04/27/2025 5:13 AM CDT Order placed by [facility] due to ring surveillance. us Instant Order Generic Provider LAB MICROBIOLOGY - GENERAL ORDERABLES Final Result DULCE MARIA ARANDA [facility] [place] [address] BJ * XR Chest 1 View (04/26/2025 9:13 AM CDT) Anatomical Region Laterality Modality Body, Chest N/A Computed Radiogr aphy 04/26/2025 10:1 2 AM CDT Impressions 04/26/2025 10:59 AM CDT Comparison with 04/25/2025. Right peripherally inserted central venous catheter at the superior cavoatrial junction. Left internal jugular Packwood-Jayne catheter overlies main pulmonary artery. Unchanged small [...] the superior cavoatrial junction. Left internal jugular Packwood-Jayne catheter overlies main pulmonary artery. Unchanged small bilateral pleural effusions with associated atelectasis. No pneumothorax. Stable cardiomediastinal silhouette. Dictated by: Magali Cotton MD The radiology attending physician has personally reviewed this study, and had reviewed and/or edited this written report and agrees with it. Electronically signed by: Jessica Jackson M.D. us Dinorah Kahn PROGRAM SUPPORT CLERK IMG XR PROCEDURES Final Res ult * Oxyhemoglobin, pulmonary artery (04/26/2025 8:37 AM CDT) Oxyhemoglobin, PA 68.4 % Comment: Interpretive Data No reference range established. Current interpretive data was last revised 2020. Blood 04/26/2025 8:37 AM CDT 04/26/2025 8:46 AM CDT us Wang Almaraz MD LAB BLOOD ORDERABLES Final R esult Performing Organization Address City/[facility] Co de Phone Number [facility] [place] [address] * (ABNORMAL) Hemoglobin total, pulmonary artery (04/26/2025 8:37 AM CDT) Hemoglobin total, PA 12.3(L) 13.0 - 17.5 g/dL Blood 04/26/2025 8:37 AM CDT 04/26/2025 8:46 AM CDT us Wang Almaraz MD LAB BLOOD ORDERABLES Final R esult Performing Organization Address City/[facility] Co de Phone Number DULCE MARIA [facility] Department [place] [address] * eGFR (04/26/2025 8:37 AM CDT) eGFR [...] BLOOD ORDERABLES Final Result Performing Organization Address [facility] Co de Phone Number [facility] [place] [address] * Lactate, whole blood (04/26/2025 8:37 AM CDT) Lactate, bld 1.8 0.7 - 2.0 mmol/L Blood 04/26/2025 8:37 AM CDT 04/26/2025 8:46 AM CDT Wang Almaraz MD LAB BLOOD ORDERABLES Final R esult Performing Organization Address [facility] Co de Phone Number [facility] Department [place] [address] * Basic metabolic panel (04/26/2025 8:37 AM CDT) Sodium 138 135 - 145 mmol/L Potassium, pl 3.8 3.3 - 4.9 mmol/L [facility] Chloride 101 97 - 110 mmol/L [facility] CO2 28 22 - 32 mmol/L [facility] Anion gap 9 2 - 15 mmol/L [facility] BUN 25 6 - 25 mg/dL [facility] Creatinine 1.29 0.80 - 1.30 mg/dL [facility] Glucose 189 70 - 199 mg/dL [facility] Comment: Interpretive Data Fasting glucose >/= 126 [...] 9.4 8.5 - 10.3 mg/dL DULCE MARIA [facility] Blood 04/26/2025 8:37 AM CDT 04/26/2025 8:49 AM CDT us Dinorah Kahn NP LAB BLOOD ORDERABLES Final Result [employer] [facility] [place] [address] * (ABNORMAL) aPTT (04/25/2025 10:05 PM CDT) aPTT 55(H) 28 - 38 sec Comment: Interpretive Data Heparin therapeutic range: 66.0 - 100.0 seconds. Range based on correlation with therapeutic heparin activity range of 0.3 - 0.7 Units/mL. Current interpretive data was last revised on 2023. Blood 04/25/2025 10:0 5 PM CDT 04/25/2025 10:41 PM CDT Narrative DULCE MARIA [facility] - 04/25/2025 10:51 PM CDT STAT PTT [...] peripherally (not from CVC). us Libia Suarez PROGRAM SUPPORT CLERK LAB BLOOD ORDERABLES Final Re sult Performing Organization Address [facility] Co de Phone Number [facility] [place] [address] * Oxyhemoglobin, pulmonary artery (04/25/2025 8:14 PM CDT) Oxyhemoglobin, PA 66.4 % Comment: Interpretive Data No reference range established. Current interpretive data was last revised 2020. Blood 04/25/2025 8:14 PM CDT 04/25/2025 8:23 PM CDT us Wang Almaraz MD LAB BLOOD ORDERABLES Final R esult Performing Organization Address [facility] Co de Phone Number [facility] [place] [address] * Potassium, whole blood (04/25/2025 8:14 PM CDT) Pathologist [facility] Potassium, bld 4.2 3.3 - 4.9 mmol/L Blood 04/25/2025 8:14 PM CDT 04/25/2025 8:23 PM CDT us Dinorah Kahn PROGRAM SUPPORT CLERK LAB BLOOD ORDERABLES Final Result Performing Organization Address [facility] Co de Phone Number [facility] [place] [address] * (ABNORMAL) eGFR (04/25/2025 8:14 PM CDT) Pathologist [facility] eGFR 55(L) >=60 mL/min/1. 73 m2 Comment: [...] BLOOD ORDERABLES Final Result Performing Organization Address [facility] Co de Phone Number [facility] [place] [address] * Lactate, whole blood (04/25/2025 8:14 PM CDT) Lactate, bld 1.7 0.7 - 2.0 mmol/L Blood 04/25/2025 8:14 PM CDT 04/25/2025 8:23 PM CDT Wang Almaraz MD LAB BLOOD ORDERABLES Final R esult Performing Organization Address City/[facility] Co de Phone Number [facility] [place] [address] * (ABNORMAL) aPTT (04/25/2025 8:14 PM CDT) aPTT 103(H) 28 - 38 sec Comment: Interpretive Data Heparin therapeutic range: 66.0 - 100.0 seconds. Range based on correlation with therapeutic heparin activity range of 0.3 - 0.7 Units/mL. Current interpretive data was last revised on 2023. Blood 04/25/2025 8:14 PM CDT 04/25/2025 8:24 PM CDT Narrative [facility] - 04/25/2025 8:50 PM CDT STAT PTT [...] drawn peripherally (not from CVC). Libia Suarez PROGRAM SUPPORT CLERK LAB BLOOD ORDERABLES Final Re sult [facility] [place] [address] * (ABNORMAL) CBC without differential (04/25/2025 8:14 PM CDT) [facility] WBC 8.86 3.80 - 9.90 K/cumm Hgb 12.3(L) 13.0 - 17.5 g/dL [facility] Hct 38.6(L) 38.9 - 50.3 % [facility] Plt 210 150 - 400 K/cumm [facility] MPV 11.5 9.1 - 12.3 fL [facility] RBC 4.57 4.30 - 5.80 M/cumm [facility] MCV 84.5 81.3 - 96.4 fL [facility] MCH 26.9(L) 27.1 - 33.3 pg [facility] MCHC 31.9(L) 32.3 - 35.7 g/dL [facility] RDW CV 15.8(H) 11.1 - 14.9 % [facility] RDW SD 48.8(H) 35.7 - 48.1 fL [facility] NRBC abs 0.00 0.00 - 0.01 K/cumm [facility] Blood 04/25/2025 8:14 PM CDT 04/25/2025 8:32 PM CDT Libia Suarez PROGRAM SUPPORT CLERK LAB BLOOD ORDERABLES Final Re sult Performing Organization Address [facility] de Phone Number [facility] [place] [address] * Phosphorus (04/25/2025 8:14 PM CDT) Phosphorus, pl 3.7 2.3 - 4.5 mg/dL Blood 04/25/2025 8:14 PM CDT 04/25/2025 8:32 PM CDT Libia Suarez PROGRAM SUPPORT CLERK LAB BLOOD ORDERABLES Final Re sult Performing Organization Address [facility] de Phone Number [facility] [place] [address] * Magnesium (04/25/2025 8:14 PM CDT) Magnesium 1.9 1.4 - 2.5 mg/dL Blood 04/25/2025 8:14 PM CDT 04/25/2025 8:32 PM CDT Libia Suarez PROGRAM SUPPORT CLERK LAB BLOOD ORDERABLES Final Re sult Performing Organization Address [facility] [place] [address] * (ABNORMAL) Hepatic function panel (04/25/2025 8:14 PM CDT) Bilirubin, total 0.6 0.1 - 1.2 mg/dL Bilirubin, direct 0.3 0.1 - 0.3 mg/dL [facility] Protein, pl 6.2(L) 6.5 - 8.5 g/dL [facility] Albumin 3.8 3.5 - 5.0 g/dL [facility] Alk phos 267(H) 40 - 130 Units/L [facility] ALT 21 7 - 55 Units/L [facility] AST 22 10 - 50 Units/L [facility] Blood 04/25/2025 8:14 PM CDT 04/25/2025 8:32 PM CDT Libia Suarez PROGRAM SUPPORT CLERK LAB BLOOD ORDERABLES Final Re sult [facility] [place] [address] * (ABNORMAL) Basic metabolic panel (04/25/2025 8:14 PM CDT) Pathologist [facility] Sodium 135 135 - 145 mmol/L Potassium, pl 4.3 3.3 - 4.9 mmol/L [facility] Chloride 98 97 - 110 mmol/L [facility] CO2 30 22 - 32 mmol/L [facility] Anion gap 7 2 - 15 mmol/L [facility] BUN 31(H) 6 - 25 mg/dL [facility] Creatinine 1.46(H) 0.80 - 1.30 mg/dL [facility] Glucose 192 70 - 199 mg/dL [facility] Comment: Interpretive Data Fasting glucose >/= 126 [...] 2022. Calcium 9.4 8.5 - 10.3 mg/dL [facility] Blood 04/25/2025 8:14 PM CDT 04/25/2025 8:32 PM CDT us Dinorah Kahn PROGRAM SUPPORT CLERK LAB BLOOD ORDERABLES Final Result DULCE MARIA ARANDA [facility] [place] [address] * XR Chest 1 View (04/25/2025 2:22 PM CDT) Anatomical Region Laterality Modality Body, Chest N/A Computed Radiogr aphy 04/25/2025 2:50 PM CDT Impressions 04/25/2025 3:15 PM CDT Comparison with 04/25/2025 8:15 AM. Left internal jugular Packwood-Jayne catheter tip overlies the proximal right main [...] with 04/25/2025 8:15 AM. Left internal jugular Packwood-Jayne catheter tip overlies the proximal right main [...] by: Jessica Jackson M.D. us Farida Flores PROGRAM SUPPORT CLERK IMG XR PROCEDURES Final Resu lt * XR Chest 1 View (04/25/2025 9:38 AM CDT) Anatomical Region Laterality Modality Body, Chest N/A Digital Radiogra phy 04/25/2025 11:2 7 AM CDT Impressions 04/25/2025 11:52 AM CDT The current study is compared with the prior radiograph dated 04/24/2025. Right peripherally inserted central venous catheter with tip overlying the superior vena cava. A Packwood-Jayne catheter is in place, tip overlies the [...] tip overlying the superior vena cava. A Packwood-Jayne catheter is in place, tip overlies the main pulmonary artery. Small bilateral pleural effusions and bibasilar atelectasis. The heart and mediastinal contours are stable. Dictated by: Neel Nelson MD The radiology attending physician has personally reviewed this study, and had reviewed and/or edited this written report and agrees with it. Electronically signed by: Jessica Jackson M.D. Dinorah Kahn NP IMG XR PROCEDURES Final Res ult * Oxyhemoglobin, pulmonary artery (04/25/2025 8:42 AM CDT) Oxyhemoglobin, PA 71.0 % Comment: Interpretive Data No reference range established. Current interpretive data was last revised 2020. Blood 04/25/2025 8:42 AM CDT 04/25/2025 8:51 AM CDT Wang Almaraz MD LAB BLOOD ORDERABLES Final R esult DULCE MARIA ARANDA [facility] [place] [address] * (ABNORMAL) Hemoglobin total, pulmonary artery (04/25/2025 8:42 AM CDT) Hemoglobin total, PA 12.7(L) 13.0 - 17.5 g/dL Blood 04/25/2025 8:42 AM CDT 04/25/2025 8:51 AM CDT Wang Almaraz MD LAB BLOOD ORDERABLES Final R esult Performing Organization Address City/[facility] Co de Phone Number DULCE MARIA [facility] [place] [address] * eGFR (04/25/2025 8:42 AM CDT) eGFR [...] BLOOD ORDERABLES Final Result Performing Organization Address City/[facility]/ZIP Co de Phone Number [facility] [place] [address] * Lactate, whole blood (04/25/2025 8:42 AM CDT) [facility] Lactate, bld 1.7 0.7 - 2.0 mmol/L Blood 04/25/2025 8:42 AM CDT 04/25/2025 8:51 AM CDT Wang Almaraz MD LAB BLOOD ORDERABLES Final R esult Performing Organization Address [facility] Co de Phone Number [facility] Department [place] [address] * (ABNORMAL) Basic metabolic panel (04/25/2025 8:42 AM CDT) [facility] Sodium 139 135 - 145 mmol/L Potassium, pl 3.8 3.3 - 4.9 mmol/L [facility] Chloride 100 97 - 110 mmol/L [facility] CO2 29 22 - 32 mmol/L [facility] Anion gap 10 2 - 15 mmol/L [facility] BUN 27(H) 6 - 25 mg/dL [facility] Creatinine 1.31(H) 0.80 - 1.30 mg/dL [facility] Glucose 183 70 - 199 mg/dL [facility] Comment: Interpretive Data Fasting glucose >/= 126 [...] 2022. Calcium 9.4 8.5 - 10.3 mg/dL [facility] Blood 04/25/2025 8:42 AM CDT 04/25/2025 9:03 AM CDT us Dinorah Kahn NP LAB BLOOD ORDERABLES Final Result Performing Organization Address [facility] Co de Phone Number [facility] [place] [address] * Potassium, whole blood (04/25/2025 6:47 AM CDT) Potassium, bld 3.9 3.3 - 4.9 mmol/L Blood 04/25/2025 6:47 AM CDT 04/25/2025 7:30 AM CDT us Dinorah Kahn NP LAB BLOOD ORDERABLES Final Result Performing Organization Address [facility] de Phone Number [facility] [place] [address] * Oxyhemoglobin, pulmonary artery (04/24/2025 8:08 PM CDT) Oxyhemoglobin, PA 66.4 % Comment: Interpretive Data No reference range established. Current interpretive data was last revised 2020. Blood 04/24/2025 8:08 PM CDT 04/24/2025 8:18 PM CDT us Wang Almaraz MD LAB BLOOD ORDERABLES Final R esult Performing Organization Address [facility] Co de Phone Number [facility] [place] [address] * Potassium, whole blood (04/24/2025 8:08 PM CDT) Potassium, bld 3.9 3.3 - 4.9 mmol/L Blood 04/24/2025 8:08 PM CDT 04/24/2025 8:18 PM CDT us Dinorah Kahn NP LAB BLOOD ORDERABLES Final Result DULCE MARIA ARANDA [facility] [place] [address] * (ABNORMAL) eGFR (04/24/2025 8:08 PM CDT) [...] LAB BLOOD ORDERABLES Final Result DULCE MARIA [facility] [place] [address] * Lactate, whole blood (04/24/2025 8:08 PM CDT) Lactate, bld 1.3 0.7 - 2.0 mmol/L Blood 04/24/2025 8:08 PM CDT 04/24/2025 8:18 PM CDT Wang Almaraz MD LAB BLOOD ORDERABLES Final R esult Performing Organization Address [facility] Co de Phone Number DULCE MARIA ARANDA [facility] [place] [address] * (ABNORMAL) aPTT (04/24/2025 8:08 PM CDT) Pathologist [facility] aPTT 62(H) 28 - 38 sec Comment: Interpretive Data Heparin therapeutic range: 66.0 - 100.0 seconds. Range based on correlation with therapeutic heparin activity range of 0.3 - 0.7 Units/mL. Current interpretive data was last revised on 2023. Blood 04/24/2025 8:08 PM CDT 04/24/2025 8:22 PM CDT Narrative [facility] - 04/24/2025 8:51 PM CDT STAT PTT [...] drawn peripherally (not from CVC). Libia Suarez PROGRAM SUPPORT CLERK LAB BLOOD ORDERABLES Final Re sult Performing Organization Address [facility]/ZIP Co de Phone Number DULCE MARIA [facility] Department [place] [address] * (ABNORMAL) CBC without differential (04/24/2025 8:08 PM CDT) Pathologist [facility] WBC 8.38 3.80 - 9.90 K/cumm Hgb 12.8(L) 13.0 - 17.5 g/dL [facility] Hct 39.4 38.9 - 50.3 % [facility] Plt 206 150 - 400 K/cumm [facility] MPV 11.5 9.1 - 12.3 fL [facility] RBC 4.73 4.30 - 5.80 M/cumm [facility] MCV 83.3 81.3 - 96.4 fL [facility] MCH 27.1 27.1 - 33.3 pg [facility] MCHC 32.5 32.3 - 35.7 g/dL [facility] RDW CV 15.9(H) 11.1 - 14.9 % [facility] RDW SD 48.4(H) 35.7 - 48.1 fL [facility] NRBC abs 0.00 0.00 - 0.01 K/cumm [facility] Blood 04/24/2025 8:08 PM CDT 04/24/2025 8:21 PM CDT Libia Suarez PROGRAM SUPPORT CLERK LAB BLOOD ORDERABLES Final Re sult [facility] [place] [address] * Phosphorus (04/24/2025 8:08 PM CDT) Phosphorus, pl 3.4 2.3 - 4.5 mg/dL Blood 04/24/2025 8:08 PM CDT 04/24/2025 8:22 PM CDT Libia Suarez PROGRAM SUPPORT CLERK LAB BLOOD ORDERABLES Final Re sult [facility] [place] [address] * Magnesium (04/24/2025 8:08 PM CDT) Magnesium 2.0 1.4 - 2.5 mg/dL Blood 04/24/2025 8:08 PM CDT 04/24/2025 8:22 PM CDT Libia Suarez PROGRAM SUPPORT CLERK LAB BLOOD ORDERABLES Final Re sult Performing Organization Address [facility] Co de Phone Number [facility] [place] [address] * (ABNORMAL) Hepatic function panel (04/24/2025 8:08 PM CDT) Bilirubin, total 0.7 0.1 - 1.2 mg/dL Bilirubin, direct 0.3 0.1 - 0.3 mg/dL [facility] Protein, pl 6.5 6.5 - 8.5 g/dL [facility] Albumin 4.1 3.5 - 5.0 g/dL [facility] Alk phos 275(H) 40 - 130 Units/L [facility] ALT 21 7 - 55 Units/L [facility] AST 24 10 - 50 Units/L [facility] Blood 04/24/2025 8:08 PM CDT 04/24/2025 8:22 PM CDT Libia Suarez PROGRAM SUPPORT CLERK LAB BLOOD ORDERABLES Final Re sult Performing Organization Address [facility] Co de Phone Number [facility] [place] [address] * (ABNORMAL) Basic metabolic panel (04/24/2025 8:08 PM CDT) Sodium 136 135 - 145 mmol/L Potassium, pl 4.0 3.3 - 4.9 mmol/L [facility] Chloride 98 97 - 110 mmol/L [facility] CO2 28 22 - 32 mmol/L [facility] Anion gap 10 2 - 15 mmol/L [facility] BUN 30(H) 6 - 25 mg/dL [facility] Creatinine 1.63(H) 0.80 - 1.30 mg/dL [facility] Glucose 139 70 - 199 mg/dL [facility] Comment: Interpretive Data Fasting glucose >/= 126 [...] 2022. Calcium 9.4 8.5 - 10.3 mg/dL [facility] Blood 04/24/2025 8:08 PM CDT 04/24/2025 8:22 PM CDT us Dinorah Kahn NP LAB BLOOD ORDERABLES Final Result [facility] [place] [address] * XR Chest 1 View (04/24/2025 4:07 PM CDT) Anatomical Region Laterality Modality Body, Chest N/A Digital Radiogra phy 04/24/2025 4:47 PM CDT Impressions 04/24/2025 4:47 PM CDT The current study is compared with the prior radiograph dated 04/24/2025 at 1137 hours. Packwood-Jayne catheter is been retracted to an appropriate [...] prior radiograph dated 04/24/2025 at 1137 hours. Packwood-Jayne catheter is been retracted to an appropriate position in the pulmonary outflow tract. A right PICC catheter is in place with tip overlying the superior vena cava.. The heart is mildly enlarged. There is no pneumothorax.. There are small bilateral pleural effusions but no pulmonary edema. No mass or lymphadenopathy. Electronically signed by: Jessica Jackson M.D. Farida Flores PROGRAM SUPPORT CLERK IMG XR PROCEDURES Final Resu lt * XR Chest 1 View (04/24/2025 11:48 AM CDT) Anatomical Region Laterality Modality Body, Chest N/A Computed Radiogr aphy 04/24/2025 1:35 PM CDT Impressions 04/24/2025 1:42 PM CDT Comparison with 04/24/2025 10:23 AM. Unchanged position of left internal jugular Packwood-Jayne catheter with tip in a right upper [...] AM. Unchanged position of left internal jugular Packwood-Jayne catheter with tip in a right upper [...] signed by: Jessica Jackson M.D. Farida Flores PROGRAM SUPPORT CLERK IMG XR PROCEDURES Final Resu lt * XR Chest 1 View (04/24/2025 10:39 AM CDT) Anatomical Region Laterality Modality Body, Chest N/A Computed Radiogr aphy 04/24/2025 11:0 1 AM CDT Impressions 04/24/2025 1:33 PM CDT Comparison with 04/23/2025. Interval advancement of the left internal jugular Packwood-Jayne catheter with tip overlying a right upper [...] Interval advancement of the left internal jugular Packwood-Jayne catheter with tip overlying a right upper [...] it. Electronically signed by: Toño Rawls M.D. Dinorah Kahn PROGRAM SUPPORT CLERK IMG XR PROCEDURES Final Res ult * Oxyhemoglobin, pulmonary artery (04/24/2025 8:54 AM CDT) Oxyhemoglobin, PA 69.0 % Comment: Interpretive Data No reference range established. Current interpretive data was last revised 2020. Blood 04/24/2025 8:54 AM CDT 04/24/2025 9:11 AM CDT Wang Almaraz MD LAB BLOOD ORDERABLES Final R esult Performing Organization Address [facility] Co de Phone Number [facility] Department [place] [address] * (ABNORMAL) Hemoglobin total, pulmonary artery (04/24/2025 8:54 AM CDT) Pathologist [facility] Hemoglobin total, PA 12.7(L) 13.0 - 17.5 g/dL Comment:Collection date/time has been modified to: 08:54:00. Previous collection date/time: 09:07:00. Blood 04/24/2025 8:54 AM CDT 04/24/2025 9:11 AM CDT Wang Almaraz MD LAB BLOOD ORDERABLES Edited Result - Final Performing Organization Address [facility] de Phone Number [facility] Department [place] [address] * eGFR (04/24/2025 8:54 AM CDT) Pathologist [facility] eGFR 63 >=60 mL/min/1. 73 m2 Comment: [...] BLOOD ORDERABLES Final Result Performing Organization Address [facility]/ZIP Co de Phone Number [facility] Department [place] [address] * Lactate, whole blood (04/24/2025 8:54 AM CDT) Lactate, bld 2.0 0.7 - 2.0 mmol/L Blood 04/24/2025 8:54 AM CDT 04/24/2025 9:11 AM CDT us Wang Almaraz MD LAB BLOOD ORDERABLES Final R esult Performing Organization Address [facility]/ZIP Co de Phone Number [facility] Department [place] [address] * (ABNORMAL) Basic metabolic panel (04/24/2025 8:54 AM CDT) Sodium 136 135 - 145 mmol/L Potassium, pl 4.3 3.3 - 4.9 mmol/L [facility] Chloride 100 97 - 110 mmol/L [facility] CO2 28 22 - 32 mmol/L [facility] Anion gap 8 2 - 15 mmol/L [facility] BUN 27(H) 6 - 25 mg/dL [facility] Creatinine 1.29 0.80 - 1.30 mg/dL [facility] Glucose 172 70 - 199 mg/dL [facility] Comment: Interpretive Data Fasting glucose >/= 126 [...] 2022. Calcium 9.2 8.5 - 10.3 mg/dL [facility] Blood 04/24/2025 8:54 AM CDT 04/24/2025 9:11 AM CDT Dinorah Kahn PROGRAM SUPPORT CLERK LAB BLOOD ORDERABLES Final Result Performing Organization Address City/[facility] Co de Phone Number [facility] Department [place] [address] * Antibody identification (04/23/2025 10:44 PM CDT) Antibody ID 1 Anti-CD38 Comment:Panreactive -CD38 on reagent RBCs reacting with anti-CD38 therapy. DTT treatment removes cell surface CD38 and allows detection of common clinically significant antibodies except those against [place] antigens. TRANSFUSION 2015;55;[id number] Blood 04/23/2025 10:4 4 PM CDT 04/23/2025 10:44 PM CDT Libia Suarez PROGRAM SUPPORT CLERK LAB BLOOD BANK TEST ORDERABLE S Final Result [facility] [place] [address] * Oxyhemoglobin, pulmonary artery (04/23/2025 8:56 PM CDT) Oxyhemoglobin, PA 70.1 % Comment: Interpretive Data No reference range established. Current interpretive data was last revised 2020. Blood 04/23/2025 8:56 PM CDT 04/23/2025 9:05 PM CDT us Wang Almaraz MD LAB BLOOD ORDERABLES Final R esult [facility] [place] [address] * Potassium, whole blood (04/23/2025 8:56 PM CDT) Potassium, bld 4.4 3.3 - 4.9 mmol/L Blood 04/23/2025 8:56 PM CDT 04/23/2025 9:05 PM CDT us Dinorah Kahn NP LAB BLOOD ORDERABLES Final Result Performing Organization Address [facility] Co de Phone Number [facility] [place] [address] * (ABNORMAL) eGFR (04/23/2025 8:56 PM CDT) eGFR 53(L) >=60 mL/min/1. 73 [...] BLOOD ORDERABLES Final Result Performing Organization Address City/[facility]/ZIP Co de Phone Number [facility] [place] [address] * Lactate, whole blood (04/23/2025 8:56 PM CDT) Lactate, bld 1.0 0.7 - 2.0 mmol/L Blood 04/23/2025 8:56 PM CDT 04/23/2025 9:05 PM CDT Wang Almaraz MD LAB BLOOD ORDERABLES Final R esult Performing Organization Address [facility] Co de Phone Number [facility] [place] [address] * (ABNORMAL) aPTT (04/23/2025 8:56 PM CDT) aPTT 66(H) 28 - 38 sec Comment: Interpretive Data Heparin therapeutic range: 66.0 - 100.0 seconds. Range based on correlation with therapeutic heparin activity range of 0.3 - 0.7 Units/mL. Current interpretive data was last revised on 2023. Blood 04/23/2025 8:56 PM CDT 04/23/2025 9:07 PM CDT [facility]ative [facility] 04/[facility] 9:38 PM CDT STAT [...] ORDERABLES Final Re sult Performing Organization Address [facility] Co de Phone Number [facility] Department [place] [address] * (ABNORMAL) CBC without differential (04/23/2025 8:56 PM CDT) [facility] WBC 8.06 3.80 - 9.90 K/cumm Hgb 12.7(L) 13.0 - 17.5 g/dL [facility] Hct 39.8 38.9 - 50.3 % [facility] Plt 209 150 - 400 K/cumm [facility] MPV 11.3 9.1 - 12.3 fL [facility] RBC 4.72 4.30 - 5.80 M/cumm [facility] MCV 84.3 81.3 - 96.4 fL [facility] MCH 26.9(L) 27.1 - 33.3 pg [facility] MCHC 31.9(L) 32.3 - 35.7 g/dL [facility] RDW CV 16.0(H) 11.1 - 14.9 % [facility] RDW SD 49.1(H) 35.7 - 48.1 fL [facility] NRBC abs 0.00 0.00 - 0.01 K/cumm [facility] Blood 04/23/2025 8:56 PM CDT 04/23/2025 9:24 PM CDT Libia Suarez NP LAB BLOOD ORDERABLES Final Re sult Performing Organization Address [facility]/ZIP Co de Phone Number [facility] [place] [address] * (ABNORMAL) Type and screen (04/23/2025 8:56 PM CDT) Pathologist [facility] ABO Rh O Positive Poppy, indirect Positive(A) [facility] Blood 04/23/2025 8:56 PM CDT 04/23/2025 9:22 PM CDT Narrative [facility] - 04/23/2025 10:44 PM CDT Has the patient had Daratumumab or Isatuximab in the past 6 months?->Unknown Libia Suarez NP LAB BLOOD BANK TEST ORDERABLE S Final Result Performing Organization Address City/[facility] Co de Phone Number [facility] [place] [address] * Phosphorus (04/23/2025 8:56 PM CDT) Phosphorus, pl 4.1 2.3 - 4.5 mg/dL Blood 04/23/2025 8:56 PM CDT 04/23/2025 9:14 PM CDT Libia Suarez NP LAB BLOOD ORDERABLES Final Re sult Performing Organization Address [facility] Co de Phone Number [facility] [employer] [place] [address] * Magnesium (04/23/2025 8:56 PM CDT) Magnesium 2.0 1.4 - 2.5 mg/dL Blood 04/23/2025 8:56 PM CDT 04/23/2025 9:14 PM CDT Libia Suarez PROGRAM SUPPORT CLERK LAB BLOOD ORDERABLES Final Re sult Performing Organization Address [facility] Co de Phone Number [facility] [place] [address] * (ABNORMAL) Hepatic function panel (04/23/2025 8:56 PM CDT) Bilirubin, total 0.8 0.1 - 1.2 mg/dL Bilirubin, direct 0.3 0.1 - 0.3 mg/dL [facility] Protein, pl 6.4(L) 6.5 - 8.5 g/dL [facility] Albumin 3.9 3.5 - 5.0 g/dL [facility] Alk phos 274(H) 40 - 130 Units/L [facility] ALT 23 7 - 55 Units/L [facility] AST 27 10 - 50 Units/L [facility] Blood 04/23/2025 8:56 PM CDT 04/23/2025 9:14 PM CDT us Libia Suarez PROGRAM SUPPORT CLERK LAB BLOOD ORDERABLES Final Re sult [facility] [place] [address] * (ABNORMAL) Basic metabolic panel (04/23/2025 8:56 PM CDT) Sodium 136 135 - 145 mmol/L Potassium, pl 4.6 3.3 - 4.9 mmol/L [facility] Chloride 97 97 - 110 mmol/L [facility] CO2 28 22 - 32 mmol/L [facility] Anion gap 11 2 - 15 mmol/L [facility] BUN 32(H) 6 - 25 mg/dL [facility] Creatinine 1.49(H) 0.80 - 1.30 mg/dL [facility] Glucose 110 70 - 199 mg/dL [facility] Comment: Interpretive Data Fasting glucose >/= 126 [...] 2022. Calcium 9.6 8.5 - 10.3 mg/dL [facility] Blood 04/23/2025 8:56 PM CDT 04/23/2025 9:14 PM CDT us Dinorah Kahn NP LAB BLOOD ORDERABLES Final Result Performing Organization Address City/[facility] Co de Phone Number [facility] [place] [address] * Potassium, whole blood (04/23/2025 1:02 PM CDT) Potassium, bld 3.8 3.3 - 4.9 mmol/L Blood 04/23/2025 1:02 PM CDT 04/23/2025 1:15 PM CDT Dinorah Kahn NP LAB BLOOD ORDERABLES Final Result Performing Organization Address [facility] Co id Phone Number [facility] [place] [address] * XR Chest 1 View (04/23/2025 10:09 AM CDT) Anatomical Region Laterality Modality Body, Chest N/A Computed Radiogr aphy 04/23/2025 11:4 2 AM CDT Impressions 04/23/2025 2:23 PM CDT Comparison with 04/22/2025. Left internal jugular Packwood-Jayne catheter tip is advanced and overlies the [...] IMPRESSION: Comparison with 04/22/2025. Left internal jugular Packwood-Jayne catheter tip is advanced and overlies the [...] Dmitry Armas MD, PHD us Dinorah Kahn PROGRAM SUPPORT CLERK IMG XR PROCEDURES Final Res ult * Oxyhemoglobin, pulmonary artery (04/23/2025 8:36 AM CDT) Oxyhemoglobin, PA 68.3 % Comment: Interpretive Data No reference range established. Current interpretive data was last revised 2020. Blood 04/23/2025 8:36 AM CDT 04/23/2025 8:48 AM CDT Wang Almaraz MD LAB BLOOD ORDERABLES Final R esult Performing Organization Address City/[facility] Co de Phone Number [facility] [place] [address] * Hemoglobin total, pulmonary artery (04/23/2025 8:36 AM CDT) Hemoglobin total, PA 13.2 13.0 - 17.5 g/dL Blood 04/23/2025 8:36 AM CDT 04/23/2025 8:49 AM CDT Wang Almaraz MD LAB BLOOD ORDERABLES Final R esult Performing Organization Address City/[facility]/ZIP Co de Phone Number [facility] [place] [employer] [place] [address] * eGFR (04/23/2025 8:36 AM CDT) eGFR 69 >=60 mL/min/1. 73 [...] BLOOD ORDERABLES Final Result Performing Organization Address City/[facility] Co de Phone Number DULCE MARIA [facility] [place] [address] * (ABNORMAL) Lactate, whole blood (04/23/2025 8:36 AM CDT) Lactate, bld 2.4(H) 0.7 - 2.0 mmol/L Blood 04/23/2025 8:36 AM CDT 04/23/2025 8:48 AM CDT us Wang Almaraz MD LAB BLOOD ORDERABLES Final R esult DULCE MARIA [facility] Department [place] [address] * (ABNORMAL) Basic metabolic panel (04/23/2025 8:36 AM CDT) Sodium 137 135 - 145 mmol/L Potassium, pl 3.9 3.3 - 4.9 mmol/L [facility] Chloride 100 97 - 110 mmol/L [facility] CO2 27 22 - 32 mmol/L [facility] Anion gap 10 2 - 15 mmol/L [facility] BUN 27(H) 6 - 25 mg/dL [facility] Creatinine 1.20 0.80 - 1.30 mg/dL [facility] Glucose 229(H) 70 - 199 mg/dL [facility] Comment: Interpretive Data Fasting glucose >/= 126 [...] 2022. Calcium 9.3 8.5 - 10.3 mg/dL [facility] Blood 04/23/2025 8:36 AM CDT 04/23/2025 8:51 AM CDT Dinorah aKhn NP LAB BLOOD ORDERABLES Final Result [facility] [place] [address] * (ABNORMAL) aPTT (04/23/2025 5:26 AM CDT) Pathologist [facility] aPTT 62(H) 28 - 38 sec Comment: Interpretive Data Heparin therapeutic range: 66.0 - 100.0 seconds. Range based on correlation with therapeutic heparin activity range of 0.3 - 0.7 Units/mL. Current interpretive data was last revised on 2023. Blood 04/23/2025 5:26 AM CDT 04/23/2025 5:47 AM CDT Narrative DULCE MARIA [facility] - 04/23/2025 6:08 AM CDT STAT PTT [...] drawn peripherally (not from CVC). Libia Suarez PROGRAM SUPPORT CLERK LAB BLOOD ORDERABLES Final Re sult Performing Organization Address [facility] Co de Phone Number [facility] [place] [address] * Oxyhemoglobin, pulmonary artery (04/22/2025 8:40 PM CDT) Oxyhemoglobin, PA 66.8 % Comment: Interpretive Data No reference range established. Current interpretive data was last revised 2020. Blood 04/22/2025 8:40 PM CDT 04/22/2025 9:22 PM CDT Wang Almaraz MD LAB BLOOD ORDERABLES Final R esult Performing Organization Address City/[facility]/ZIP Co de Phone Number [facility] [place] [address] * Hemoglobin total, pulmonary artery (04/22/2025 8:40 PM CDT) Hemoglobin total, PA 13.6 13.0 - 17.5 g/dL Blood 04/22/2025 8:40 PM CDT 04/22/2025 9:22 PM CDT us Wang Almaraz MD LAB BLOOD ORDERABLES Final R esult Performing Organization Address [facility] Co de Phone Number [facility]CE MARIA [facility] [place] [address] * eGFR (04/22/2025 8:40 PM CDT) eGFR [...] BLOOD ORDERABLES Final Result Performing Organization Address [facility] Co de Phone Number DULCE MARIA ARANDA [facility] [place] [address] * Lactate, whole blood (04/22/2025 8:40 PM CDT) Lactate, bld 1.0 0.7 - 2.0 mmol/L Blood 04/22/2025 8:40 PM CDT 04/22/2025 9:22 PM CDT Wang Almaraz MD LAB BLOOD ORDERABLES Final R esult Performing Organization Address City/[facility] Co de Phone Number [facility] [place] [address] * (ABNORMAL) CBC without differential (04/22/2025 8:40 PM CDT) [facility] WBC 7.99 3.80 - 9.90 K/cumm Hgb 13.4 13.0 - 17.5 g/dL [facility] Hct 40.5 38.9 - 50.3 % [facility] Plt 217 150 - 400 K/cumm [facility] MPV 11.6 9.1 - 12.3 fL [facility] RBC 4.89 4.30 - 5.80 M/cumm [facility] MCV 82.8 81.3 - 96.4 fL [facility] MCH 27.4 27.1 - 33.3 pg [facility] MCHC 33.1 32.3 - 35.7 g/dL [facility] RDW CV 16.1(H) 11.1 - 14.9 % [facility] RDW SD 48.5(H) 35.7 - 48.1 fL [facility] NRBC abs 0.00 0.00 - 0.01 K/cumm [facility] Blood 04/22/2025 8:40 PM CDT 04/22/2025 9:27 PM CDT Libia Suarez PROGRAM SUPPORT CLERK LAB BLOOD ORDERABLES Final Re sult Performing Organization Address City/[facility]/ZIP Co de Phone Number [facility] [place] [address] * Phosphorus (04/22/2025 8:40 PM CDT) Pathologist [facility] Phosphorus, pl 3.6 2.3 - 4.5 mg/dL Blood 04/22/2025 8:40 PM CDT 04/22/2025 9:26 PM CDT Libia Suarez NP LAB BLOOD ORDERABLES Final Re sult [facility] [place] [address] * Magnesium (04/22/2025 8:40 PM CDT) Pathologist [facility] Magnesium 2.2 1.4 - 2.5 mg/dL Blood 04/22/2025 8:40 PM CDT 04/22/2025 9:26 PM CDT Libia Suarez NP LAB BLOOD ORDERABLES Final Re sult Performing Organization Address [facility] [facility] Co de Phone Number [facility] [place] [address] * (ABNORMAL) Hepatic function panel (04/22/2025 8:40 PM CDT) Pathologist [facility] Bilirubin, total 0.7 0.1 - 1.2 mg/dL Bilirubin, direct 0.2 0.1 - 0.3 mg/dL [facility] Protein, pl 6.3(L) 6.5 - 8.5 g/dL [facility] Albumin 3.9 3.5 - 5.0 g/dL [facility] Alk phos 255(H) 40 - 130 Units/L [facility] ALT 20 7 - 55 Units/L [facility] AST 33 10 - 50 Units/L [facility] Blood 04/22/2025 8:40 PM CDT 04/22/2025 9:26 PM CDT Libia Suarez PROGRAM SUPPORT CLERK LAB BLOOD ORDERABLES Final Re sult DULCE MARIA [facility] Department [place] [address] * (ABNORMAL) Basic metabolic panel (04/22/2025 8:40 PM CDT) Pathologist [facility] Sodium 136 135 - 145 mmol/L Potassium, pl 4.4 3.3 - 4.9 mmol/L [facility] Chloride 97 97 - 110 mmol/L [facility] CO2 26 22 - 32 mmol/L [facility] Anion gap 13 2 - 15 mmol/L [facility] BUN 32(H) 6 - 25 mg/dL [facility] Creatinine 1.23 0.80 - 1.30 mg/dL [facility] Glucose 105 70 - 199 mg/dL [facility] Comment: Interpretive Data Fasting glucose >/= 126 [...] 2022. Calcium 9.2 8.5 - 10.3 mg/dL [facility] Blood 04/22/2025 8:40 PM CDT 04/22/2025 9:26 PM CDT us Dinorah Kahn NP LAB BLOOD ORDERABLES Final Result [facility] [place] [address] * (ABNORMAL) Potassium, whole blood (04/22/2025 2:15 PM CDT) Pathologist [facility] Potassium, bld 5.1(H) 3.3 - 4.9 mmol/L Blood 04/22/2025 2:15 PM CDT 04/22/2025 2:38 PM CDT Dinorah Kahn NP LAB BLOOD ORDERABLES Final Result [facility] [place] [address] * XR Chest 1 View (04/22/2025 8:43 AM CDT) Anatomical Region Laterality Modality Body, Chest N/A Computed Radiogr aphy 04/22/2025 10:5 4 AM CDT Impressions 04/22/2025 11:12 AM CDT The current study is compared with the prior radiograph dated 04/21/2025. A Packwood-Jayne catheter is in place, tip overlies the [...] with the prior radiograph dated 04/21/2025. A Packwood-Jayne catheter is in place, tip overlies the [...] by: Juanito Brandt M.D. us Dinorah Kahn PROGRAM SUPPORT CLERK IMG XR PROCEDURES Final Res ult * Oxyhemoglobin, pulmonary artery (04/22/2025 7:35 AM CDT) Oxyhemoglobin, PA 68.3 % Comment: Interpretive Data No reference range established. Current interpretive data was last revised 2020. Blood 04/22/2025 7:35 AM CDT 04/22/2025 7:46 AM CDT us Wang Almaraz MD LAB BLOOD ORDERABLES Final R esult Performing Organization Address City/[facility] Co de Phone Number [facility] [place] [address] * Hemoglobin total, pulmonary artery (04/22/2025 7:35 AM CDT) Pathologist [facility] Hemoglobin total, PA 13.0 13.0 - 17.5 g/dL Blood 04/22/2025 7:35 AM CDT 04/22/2025 7:46 AM CDT us Wang Almaraz MD LAB BLOOD ORDERABLES Final R esult Performing Organization Address [facility] Co de Phone Number [facility] [place] [address] * Potassium, whole blood (04/22/2025 7:35 AM CDT) Pathologist [facility] Potassium, bld 3.9 3.3 - 4.9 mmol/L Blood 04/22/2025 7:35 AM CDT 04/22/2025 7:46 AM CDT us Dinorah Kahn NP LAB BLOOD ORDERABLES Final Result Performing Organization Address City/[facility] Co de Phone Number [facility] [employer] [place], [place] [id number] * eGFR (04/22/2025 7:35 AM CDT) Pathologist [facility] eGFR 63 >=60 mL/min/1. 73 m2 Comment: [...] LAB BLOOD ORDERABLES Final Result DULCE MARIA [facility] Department [place] [address] * Lactate, whole blood (04/22/2025 7:35 AM CDT) Lactate, bld 0.7 0.7 - 2.0 mmol/L Blood 04/22/2025 7:35 AM CDT 04/22/2025 7:46 AM CDT us Wang Almaraz MD LAB BLOOD ORDERABLES Final R esult DULCE MARIA [facility] Department [place] [address] * (ABNORMAL) Basic metabolic panel (04/22/2025 7:35 AM CDT) Sodium 137 135 - 145 mmol/L Potassium, pl 4.1 3.3 - 4.9 mmol/L [facility] Chloride 100 97 - 110 mmol/L [facility] CO2 27 22 - 32 mmol/L [facility] Anion gap 10 2 - 15 mmol/L [facility] BUN 30(H) 6 - 25 mg/dL [facility] Creatinine 1.29 0.80 - 1.30 mg/dL [facility] Glucose 103 70 - 199 mg/dL [facility] Comment: Interpretive Data Fasting glucose >/= 126 [...] 2022. Calcium 9.3 8.5 - 10.3 mg/dL [facility] Blood 04/22/2025 7:35 AM CDT 04/22/2025 8:29 AM CDT us Dinorah Kahn NP LAB BLOOD ORDERABLES Final Result Performing Organization Address [facility] Co de Phone Number [facility] [place] [address] * Oxyhemoglobin, pulmonary artery (04/21/2025 10:13 PM CDT) Oxyhemoglobin, PA 60.6 % Comment: Interpretive Data No reference range established. Current interpretive data was last revised 2020. Blood 04/21/2025 10:1 3 PM CDT 04/21/2025 10:44 PM CDT us Wang Almaraz MD LAB BLOOD ORDERABLES Final R esult Performing Organization Address City/[facility]/ZIP Co de Phone Number [facility] [place] [address] * Hemoglobin total, pulmonary artery (04/21/2025 10:13 PM CDT) Hemoglobin total, PA 13.7 13.0 - 17.5 g/dL Blood 04/21/2025 10:1 3 PM CDT 04/21/2025 10:44 PM CDT us Wang Almaraz MD LAB BLOOD ORDERABLES Final R esult Performing Organization Address City/[facility]/ZIP Co de Phone Number DULCE MARIA [facility] [place] [address] * (ABNORMAL) eGFR (04/21/2025 10:13 PM CDT) eGFR 53(L) >=60 mL/min/1. 73 [...] Kahn NP LAB BLOOD ORDERABLES Final Result [facility] Department [place] [address] * Lactate, whole blood (04/21/2025 10:13 PM CDT) Pathologist [facility] Lactate, bld 1.0 0.7 - 2.0 mmol/L Blood 04/21/2025 10:1 3 PM CDT 04/21/2025 10:44 PM CDT us Wang Almaraz MD LAB BLOOD ORDERABLES Final R esult [facility] [place] [address] * (ABNORMAL) aPTT (04/21/2025 10:13 PM CDT) [facility] aPTT 60(H) 28 - 38 sec Comment: Interpretive Data Heparin therapeutic range: 66.0 - 100.0 seconds. Range based on correlation with therapeutic heparin activity range of 0.3 - 0.7 Units/mL. Current interpretive data was last revised on 2023. Blood 04/21/2025 10:1 3 PM CDT 04/21/2025 10:55 PM CDT Narrative [facility] [employer] [facility] [employer] - 04/21/2025 11:21 PM CDT STAT PTT [...] peripherally (not from CVC). us Libia Suarez PROGRAM SUPPORT CLERK LAB BLOOD ORDERABLES Final Re sult Performing Organization Address City/[facility] de Phone Number [facility] [place] [address] * (ABNORMAL) CBC without differential (04/21/2025 10:13 PM CDT) Pathologist [facility] WBC 8.41 3.80 - 9.90 K/cumm Hgb 12.8(L) 13.0 - 17.5 g/dL [facility] Hct 39.7 38.9 - 50.3 % [facility] Plt 207 150 - 400 K/cumm [facility] MPV 11.9 9.1 - 12.3 fL [facility] RBC 4.73 4.30 - 5.80 M/cumm [facility] MCV 83.9 81.3 - 96.4 fL [facility] MCH 27.1 27.1 - 33.3 pg [facility] MCHC 32.2(L) 32.3 - 35.7 g/dL [facility] RDW CV 15.9(H) 11.1 - 14.9 % [facility] RDW SD 49.0(H) 35.7 - 48.1 fL [facility] NRBC abs 0.00 0.00 - 0.01 K/cumm [facility] Blood 04/21/2025 10:1 3 PM CDT 04/21/2025 10:55 PM CDT Libia Suarez NP LAB BLOOD ORDERABLES Final Re sult Performing Organization Address City/[facility] Co de Phone Number [facility] [place] [address] * Phosphorus (04/21/2025 10:13 PM CDT) Pathologist [facility] Phosphorus, pl 3.9 2.3 - 4.5 mg/dL Blood 04/21/2025 10:1 3 PM CDT 04/21/2025 10:54 PM CDT Libia Suarez PROGRAM SUPPORT CLERK LAB BLOOD ORDERABLES Final Re sult Performing Organization Address City/[facility]/ZIP Co de Phone Number [facility] [place] [address] * Magnesium (04/21/2025 10:13 PM CDT) Magnesium 2.5 1.4 - 2.5 mg/dL Blood 04/21/2025 10:1 3 PM CDT 04/21/2025 10:54 PM CDT Libia Suarez PROGRAM SUPPORT CLERK LAB BLOOD ORDERABLES Final Re sult Performing Organization Address [facility] Co de Phone Number [facility] [place] [address] * (ABNORMAL) Hepatic function panel (04/21/2025 10:13 PM CDT) Bilirubin, total 0.6 0.1 - 1.2 mg/dL Bilirubin, direct 0.3 0.1 - 0.3 mg/dL [facility] Protein, pl 6.2(L) 6.5 - 8.5 g/dL [facility] Albumin 3.9 3.5 - 5.0 g/dL [facility] Alk phos 245(H) 40 - 130 Units/L [facility] ALT 20 7 - 55 Units/L [facility] AST 25 10 - 50 Units/L [facility] Blood 04/21/2025 10:1 3 PM CDT 04/21/2025 10:54 PM CDT Libia Suarez PROGRAM SUPPORT CLERK LAB BLOOD ORDERABLES Final Re sult Performing Organization Address [facility] Co de Phone Number [facility] [place] [address] * (ABNORMAL) Basic metabolic panel (04/21/2025 10:13 PM CDT) Sodium 135 135 - 145 mmol/L Potassium, pl 4.5 3.3 - 4.9 mmol/L [facility] Chloride 98 97 - 110 mmol/L [facility] CO2 27 22 - 32 mmol/L [facility] Anion gap 10 2 - 15 mmol/L [facility] BUN 35(H) 6 - 25 mg/dL [facility] Creatinine 1.51(H) 0.80 - 1.30 mg/dL [facility] Glucose 131 70 - 199 mg/dL [facility] Comment: Interpretive Data Fasting glucose >/= 126 [...] 2022. Calcium 9.4 8.5 - 10.3 mg/dL [facility] Blood 04/21/2025 10:1 3 PM CDT 04/21/2025 10:54 PM CDT Dinorah Kahn NP LAB BLOOD ORDERABLES Final Result Performing Organization Address [facility] Co de Phone Number [facility] [place] [address] * Potassium, whole blood (04/21/2025 2:54 PM CDT) [facility] Potassium, bld 4.3 3.3 - 4.9 mmol/L Blood 04/21/2025 2:54 PM CDT 04/21/2025 3:01 PM CDT Dinorah Kahn NP LAB BLOOD ORDERABLES Final Result Performing Organization Address City/[facility]/ZIP Co de Phone Number [facility] [place] [address] * XR Chest 1 View (04/21/2025 10:55 AM CDT) Anatomical Region Laterality Modality Body, Chest N/A Digital Radiogra phy 04/21/2025 1:00 PM CDT Impressions 04/21/2025 1:00 PM CDT Comparison 04/20/2025 8:55 AM. Packwood-Jayne catheter tip projects over the right interlobar [...] chest radiograph IMPRESSION: Comparison 04/20/2025 8:55 AM. Packwood-Jayne catheter tip projects over the right interlobar pulmonary artery, unchanged. Small right basilar pleural effusion and mild right base atelectasis again noted. No focal consolidation or pulmonary edema seen. No pneumothorax seen. Electronically signed by: Miguel Angel Ng M.D. Dinorah Kahn PROGRAM SUPPORT CLERK IMG XR PROCEDURES Final Res ult * Oxyhemoglobin, pulmonary artery (04/21/2025 8:41 AM CDT) Oxypuneet PA 69.1 % Comment: Interpretive Data No reference range established. Current interpretive data was last revised 2020. Blood 04/21/2025 8:41 AM CDT 04/21/2025 8:51 AM CDT us Wang Almaraz MD LAB BLOOD ORDERABLES Final R esult DULCE MARIA [facility] [place] [address] * Hemoglobin total, pulmonary artery (04/21/2025 8:41 AM CDT) Hemoglobin total, PA 14.0 13.0 - 17.5 g/dL Blood 04/21/2025 8:41 AM CDT 04/21/2025 8:51 AM CDT Wang Almaraz MD LAB BLOOD ORDERABLES Final R esult Performing Organization Address [facility] Co de Phone Number [facility] [place] [address] * Oxyhemoglobin, pulmonary artery (04/21/2025 8:39 AM CDT) Oxyhemoglobin, PA 70.5 % Comment: Interpretive Data No reference range established. Current interpretive data was last revised 2020. Blood 04/21/2025 8:39 AM CDT 04/21/2025 8:51 AM CDT Wang Almaraz MD LAB BLOOD ORDERABLES Final R esult Performing Organization Address [facility] de Phone Number [facility] [place] [address] * eGFR (04/21/2025 8:39 AM CDT) eGFR [...] 04/21/2025 9:00 AM CDT us Dinorah Kahn PROGRAM SUPPORT CLERK LAB BLOOD ORDERABLES Final Result Performing Organization Address [facility] Co de Phone Number [facility] [place] [address] * Lactate, whole blood (04/21/2025 8:39 AM CDT) Lactate, bld 1.5 0.7 - 2.0 mmol/L Blood 04/21/2025 8:39 AM CDT 04/21/2025 8:51 AM CDT us Wang Almaraz MD LAB BLOOD ORDERABLES Final R esult Performing Organization Address [facility] de Phone Number [facility] [place] [address] * (ABNORMAL) Basic metabolic panel (04/21/2025 8:39 AM CDT) Sodium 137 135 - 145 mmol/L Potassium, pl 4.8 3.3 - 4.9 mmol/L [facility] Chloride 99 97 - 110 mmol/L [facility] CO2 27 22 - 32 mmol/L [facility] Anion gap 11 2 - 15 mmol/L [facility] BUN 31(H) 6 - 25 mg/dL [facility] Creatinine 1.27 0.80 - 1.30 mg/dL [facility] Glucose 179 70 - 199 mg/dL [facility] Comment: Interpretive Data Fasting glucose >/= 126 [...] 2022. Calcium 9.9 8.5 - 10.3 mg/dL [facility] Blood 04/21/2025 8:39 AM CDT 04/21/2025 9:00 AM CDT Dinorah Kahn NP LAB BLOOD ORDERABLES Final Result [facility] [place] [address] * Potassium, whole blood (04/21/2025 4:39 AM CDT) Pathologist [facility] Potassium, bld 3.9 3.3 - 4.9 mmol/L Blood 04/21/2025 4:3 9 AM CDT 04/21/2025 4:51 AM CDT Dinorah Kahn NP LAB BLOOD ORDERABLES Final Result Performing Organization Address City/State/[facility] Co de Phone Number [facility] [place] [address] * Antibody identification (04/20/2025 10:54 PM CDT) Antibody ID 1 Anti-CD38 Comment:Panreactive -CD38 on reagent RBCs reacting with anti-CD38 therapy. DTT treatment removes cell surface CD38 and allows detection of common clinically significant antibodies except those against Dilma antigens. TRANSFUSION [id number] Blood 04/20/2025 10:5 4 PM CDT 04/20/2025 10:54 PM CDT Libia Suarez NP LAB BLOOD BANK TEST ORDERABLE S Final Result Performing Organization Address [facility] Co de Phone Number [facility] [place] [address] * Oxyhemoglobin, pulmonary artery (04/20/2025 9:19 PM CDT) Oxyhemoglobin, PA 66.7 % Comment: Interpretive Data No reference range established. Current interpretive data was last revised 2020. Blood 04/20/2025 9:19 PM CDT 04/20/2025 9:28 PM CDT Wang Almaraz MD LAB BLOOD ORDERABLES Final R esult Performing Organization Address [facility] Co de Phone Number [facility] [place] [address] * Hemoglobin total, pulmonary artery (04/20/2025 9:19 PM CDT) Hemoglobin total, PA 14.0 13.0 - 17.5 g/dL Blood 04/20/2025 9:19 PM CDT 04/20/2025 9:28 PM CDT Wang Almaraz MD LAB BLOOD ORDERABLES Final R esult Performing Organization Address [facility] Co de Phone Number [facility] [employer] [place], [place] [id number] * (ABNORMAL) eGFR (04/20/2025 9:19 PM CDT) [...] BLOOD ORDERABLES Final Result Performing Organization Address [facility] Co de Phone Number [facility] [place] [address] * Lactate, whole blood (04/20/2025 9:19 PM CDT) Lactate, bld 0.8 0.7 - 2.0 mmol/L Blood 04/20/2025 9:19 PM CDT 04/20/2025 9:28 PM CDT Wang Almaraz MD LAB BLOOD ORDERABLES Final R esult Performing Organization Address [facility] Co de Phone Number [facility] [place] [address] * (ABNORMAL) aPTT (04/20/2025 9:19 PM CDT) aPTT 62(H) 28 - 38 sec Comment: Interpretive Data Heparin therapeutic range: 66.0 - 100.0 seconds. Range based on correlation with therapeutic heparin activity range of 0.3 - 0.7 Units/mL. Current interpretive data was last revised on 2023. Blood 04/20/2025 9:19 PM CDT 04/20/2025 9:35 PM CDT Narrative [facility] - 04/20/2025 9:44 PM CDT STAT PTT [...] drawn peripherally (not from CVC). Libia Suarez PROGRAM SUPPORT CLERK LAB BLOOD ORDERABLES Final Re sult [facility] [place] [address] * (ABNORMAL) CBC without differential (04/20/2025 9:19 PM CDT) WBC 8.03 3.80 - 9.90 K/cumm Hgb 13.2 13.0 - 17.5 g/dL [facility] Hct 41.3 38.9 - 50.3 % [facility] Plt 197 150 - 400 K/cumm [facility] MPV 11.1 9.1 - 12.3 fL [facility] RBC 4.94 4.30 - 5.80 M/cumm [facility] MCV 83.6 81.3 - 96.4 fL [facility] MCH 26.7(L) 27.1 - 33.3 pg [facility] MCHC 32.0(L) 32.3 - 35.7 g/dL [facility] RDW CV 16.1(H) 11.1 - 14.9 % [facility] RDW SD 48.8(H) 35.7 - 48.1 fL [facility] NRBC abs 0.00 0.00 - 0.01 K/cumm [facility] Blood 04/20/2025 9:19 PM CDT 04/20/2025 9:31 PM CDT Libia Suarez NP LAB BLOOD ORDERABLES Final Re sult Performing Organization Address [facility] Co de Phone Number [facility] [place] [address] * (ABNORMAL) Type and screen (04/20/2025 9:19 PM CDT) Pathologist [facility] ABO Rh O Positive Poppy, indirect Positive(A) [facility] Blood 04/20/2025 9:19 PM CDT 04/20/2025 9:32 PM CDT Narrative [facility] - 04/20/2025 10:54 PM CDT Has the patient had Daratumumab or Isatuximab in the past 6 months?->Unknown Libia Suarez NP LAB BLOOD BANK TEST ORDERABLE S Final Result Performing Organization Address [facility] Co de Phone Number [facility] [place] [address] * Phosphorus (04/20/2025 9:19 PM CDT) Pathologist [facility] Phosphorus, pl 4.4 2.3 - 4.5 mg/dL Blood 04/20/2025 9:19 PM CDT 04/20/2025 9:31 PM CDT Libia Suarez NP LAB BLOOD ORDERABLES Final Re sult Performing Organization Address [facility] [place] [address] * Magnesium (04/20/2025 9:19 PM CDT) Pathologist [facility] Magnesium 2.0 1.4 - 2.5 mg/dL Blood 04/20/2025 9:19 PM CDT 04/20/2025 9:31 PM CDT Libia Suarez PROGRAM SUPPORT CLERK LAB BLOOD ORDERABLES Final Re sult Performing Organization Address [facility] Co de Phone Number [facility] [place] [address] * (ABNORMAL) Hepatic function panel (04/20/2025 9:19 PM CDT) Pathologist [facility] Bilirubin, total 0.7 0.1 - 1.2 mg/dL Bilirubin, direct 0.3 0.1 - 0.3 mg/dL [facility] Protein, pl 6.7 6.5 - 8.5 g/dL [facility] Albumin 4.1 3.5 - 5.0 g/dL [facility] Alk phos 254(H) 40 - 130 Units/L [facility] ALT 21 7 - 55 Units/L [facility] AST 26 10 - 50 Units/L [facility] Blood 04/20/2025 9:19 PM CDT 04/20/2025 9:31 PM CDT Libia Suarez PROGRAM SUPPORT CLERK LAB BLOOD ORDERABLES Final Re sult Performing Organization Address [facility] de Phone Number [facility] Department [place] [address] * (ABNORMAL) Basic metabolic panel (04/20/2025 9:19 PM CDT) Pathologist [facility] Sodium 137 135 - 145 mmol/L Potassium, pl 4.3 3.3 - 4.9 mmol/L [facility] Chloride 100 97 - 110 mmol/L [facility] CO2 28 22 - 32 mmol/L [facility] Anion gap 9 2 - 15 mmol/L [facility] BUN 34(H) 6 - 25 mg/dL [facility] Creatinine 1.47(H) 0.80 - 1.30 mg/dL [facility] Glucose 119 70 - 199 mg/dL [facility] Comment: Interpretive Data Fasting glucose >/= 126 [...] 2022. Calcium 9.4 8.5 - 10.3 mg/dL [facility] Blood 04/20/2025 9:19 PM CDT 04/20/2025 9:31 PM CDT us Dinorah Kahn NP LAB BLOOD ORDERABLES Final Result Performing Organization Address [facility] Co de Phone Number [facility] [place] [address] * Potassium, whole blood (04/20/2025 4:11 PM CDT) Potassium, bld 4.1 3.3 - 4.9 mmol/L Blood 04/20/2025 4:11 PM CDT 04/20/2025 4:21 PM CDT Dinorah Kahn NP LAB BLOOD ORDERABLES Final Result Performing Organization Address City/State/[facility] Co de Phone Number [facility] [place] [address] * Hemoglobin total, pulmonary artery (04/20/2025 9:47 AM CDT) Hemoglobin total, PA 13.1 13.0 - 17.5 g/dL Blood 04/20/2025 9:47 AM CDT 04/20/2025 10:00 AM CDT Wang Almaraz MD LAB BLOOD ORDERABLES Final R esult Performing Organization Address [facility] Co de Phone Number [facility] [place] [address] * Oxyhemoglobin, pulmonary artery (04/20/2025 9:46 AM CDT) Oxyhemoglobin, PA 70.6 % Comment: Interpretive Data No reference range established. Current interpretive data was last revised 2020. Blood 04/20/2025 9:46 AM CDT 04/20/2025 10:00 AM CDT us Wang Almaraz MD LAB BLOOD ORDERABLES Final R esult Performing Organization Address [facility] Co de Phone Number DULCE MARIA [facility] [place] [address] * eGFR (04/20/2025 9:46 AM CDT) eGFR [...] NP LAB BLOOD ORDERABLES Final Result [facility] [place] [address] * Lactate, whole blood (04/20/2025 9:46 AM CDT) [facility] Lactate, bld 1.5 0.7 - 2.0 mmol/L Blood 04/20/2025 9:46 AM CDT 04/20/2025 10:00 AM CDT Wang Almaraz MD LAB BLOOD ORDERABLES Final R esult Performing Organization Address City/[facility]/ZIP Co de Phone Number [facility] [place] [address] * (ABNORMAL) Basic metabolic panel (04/20/2025 9:46 AM CDT) [facility] Sodium 137 135 - 145 mmol/L Potassium, pl 4.2 3.3 - 4.9 mmol/L [facility] Chloride 99 97 - 110 mmol/L [facility] CO2 26 22 - 32 mmol/L [facility] Anion gap 12 2 - 15 mmol/L [facility] BUN 29(H) 6 - 25 mg/dL [facility] Creatinine 1.28 0.80 - 1.30 mg/dL [facility] Glucose 166 70 - 199 mg/dL [facility] Comment: Interpretive Data Fasting glucose >/= 126 [...] 2022. Calcium 9.5 8.5 - 10.3 mg/dL [facility] Blood 04/20/2025 9:46 AM CDT 04/20/2025 10:03 AM CDT Dinorah Kahn NP LAB BLOOD ORDERABLES Final Result DULCE MARIA [facility] [place] [address] * XR Chest 1 View (04/20/2025 9:02 AM CDT) Anatomical Region Laterality Modality Body, Chest N/A Computed Radiogr aphy 04/20/2025 10:4 8 PM CDT Impressions 04/20/2025 10:48 PM CDT A right peripherally inserted central venous catheter terminates at the superior cavoatrial junction. A left internal jugular Packwood-Jayne catheter terminates at the right interlobar pulmonary [...] superior cavoatrial junction. A left internal jugular Packwood-Jayne catheter terminates at the right interlobar pulmonary artery. Small bilateral pleural effusions are present. There is minimal bibasilar atelectasis with some superimposed mild reticulonodular opacities which may represent a component of aspiration. No pneumothorax is identified. The cardiomediastinal silhouette is unchanged. Electronically signed by: Raman Saavedra M.D. Dinorah M. Kronk PROGRAM SUPPORT CLERK IMG XR PROCEDURES Final Res ult * Oxyhemoglobin, pulmonary artery (04/19/2025 9:41 PM CDT) Oxyhemoglobin, PA 66.0 % Comment: Interpretive Data No reference range established. Current interpretive data was last revised 2020. Blood 04/19/2025 9:41 PM CDT 04/19/2025 9:54 PM CDT Wang Almaraz MD LAB BLOOD ORDERABLES Final R esult [facility] [place] [address] * Hemoglobin total, pulmonary artery (04/19/2025 9:41 PM CDT) Pathologist [facility] Hemoglobin total, PA 14.2 13.0 - 17.5 g/dL Blood 04/19/2025 9:41 PM CDT 04/19/2025 9:54 PM CDT Wang Almaraz MD LAB BLOOD ORDERABLES Final R esult DULCE MARIA [facility] Department [place] [address] * eGFR (04/19/2025 9:41 PM CDT) eGFR 61 >=60 mL/min/1. 73 [...] BLOOD ORDERABLES Final Result Performing Organization Address [facility] Co de Phone Number [facility] Department [place] [address] * (ABNORMAL) Lactate, whole blood (04/19/2025 9:41 PM CDT) Lactate, bld 0.6(L) 0.7 - 2.0 mmol/L Blood 04/19/2025 9:41 PM CDT 04/19/2025 9:54 PM CDT Wang Almaraz MD LAB BLOOD ORDERABLES Final R esult Performing Organization Address [facility] Co de Phone Number [facility] [place] [address] * (ABNORMAL) aPTT (04/19/2025 9:41 PM CDT) aPTT 58(H) 28 - 38 sec Comment: Interpretive Data Heparin therapeutic range: 66.0 - 100.0 seconds. Range based on correlation with therapeutic heparin activity range of 0.3 - 0.7 Units/mL. Current interpretive data was last revised on 2023. Blood 04/19/2025 9:41 PM CDT 04/19/2025 10:02 PM CDT Narrative DULCE MARIA [facility] - 04/19/2025 10:12 PM CDT STAT PTT [...] NP LAB BLOOD ORDERABLES Final Re sult [facility] [place] [address] * (ABNORMAL) CBC without differential (04/19/2025 9:41 PM CDT) [facility] WBC 7.79 3.80 - 9.90 K/cumm Hgb 13.3 13.0 - 17.5 g/dL [facility] Hct 41.2 38.9 - 50.3 % [facility] Plt 205 150 - 400 K/cumm [facility] MPV 11.6 9.1 - 12.3 fL [facility] RBC 4.93 4.30 - 5.80 M/cumm [facility] MCV 83.6 81.3 - 96.4 fL [facility] MCH 27.0(L) 27.1 - 33.3 pg [facility] MCHC 32.3 32.3 - 35.7 g/dL [facility] RDW CV 16.1(H) 11.1 - 14.9 % [facility] RDW SD 49.0(H) 35.7 - 48.1 fL [facility] NRBC abs 0.00 0.00 - 0.01 K/cumm [facility] Blood 04/19/2025 9:41 PM CDT 04/19/2025 9:57 PM CDT Libia Suarez NP LAB BLOOD ORDERABLES Final Re sult Performing Organization Address [facility] Co de Phone Number [facility] [place] [address] * (ABNORMAL) Phosphorus (04/19/2025 9:41 PM CDT) Pathologist [facility] Phosphorus, pl 4.8(H) 2.3 - 4.5 mg/dL Blood 04/19/2025 9:41 PM CDT 04/19/2025 9:56 PM CDT Libia Suarez NP LAB BLOOD ORDERABLES Final Re sult Performing Organization Address [facility] Co de Phone Number [facility] [place] [address] * Magnesium (04/19/2025 9:41 PM CDT) [facility] Magnesium 2.0 1.4 - 2.5 mg/dL Blood 04/19/2025 9:41 PM CDT 04/19/2025 9:56 PM CDT Libia Suarez PROGRAM SUPPORT CLERK LAB BLOOD ORDERABLES Final Re sult Performing Organization Address [facility] de Phone Number [facility] [place] [address] * (ABNORMAL) Hepatic function panel (04/19/2025 9:41 PM CDT) Pathologist [facility] Bilirubin, total 0.7 0.1 - 1.2 mg/dL Bilirubin, direct 0.3 0.1 - 0.3 mg/dL [facility] Protein, pl 6.6 6.5 - 8.5 g/dL [facility] Albumin 4.0 3.5 - 5.0 g/dL [facility] Alk phos 245(H) 40 - 130 Units/L [facility] ALT 22 7 - 55 Units/L [facility] AST 25 10 - 50 Units/L [facility] Blood 04/19/2025 9:41 PM CDT 04/19/2025 9:56 PM CDT Libia Suarez PROGRAM SUPPORT CLERK LAB BLOOD ORDERABLES Final Re sult [facility] [place] [address] * (ABNORMAL) Basic metabolic panel (04/19/2025 9:41 PM CDT) [facility] Sodium 135 135 - 145 mmol/L Potassium, pl 4.4 3.3 - 4.9 mmol/L [facility] Chloride 99 97 - 110 mmol/L [facility] CO2 26 22 - 32 mmol/L [facility] Anion gap 10 2 - 15 mmol/L [facility] BUN 32(H) 6 - 25 mg/dL [facility] Creatinine 1.34(H) 0.80 - 1.30 mg/dL [facility] Glucose 124 70 - 199 mg/dL [facility] Comment: Interpretive Data Fasting glucose >/= 126 [...] 2022. Calcium 9.8 8.5 - 10.3 mg/dL [facility] Blood 04/19/2025 9:41 PM CDT 04/19/2025 9:56 PM CDT Dinorah Kahn PROGRAM SUPPORT CLERK LAB BLOOD ORDERABLES Final Result Performing Organization Address [facility]/ZIP Co de Phone Number [facility] [place] [address] * Infection Prevention Shady auris PCR, surveillance Axilla/Groin (04/19/2025 2:06 PM CDT) Shady auris DNA Not Detected Not Detected [facility] Comment: Interpretive Data Testing performed by [facility] Molecular Infectious Disease Laboratory using the Lucas carlos [id number] Shady auris assay. This assay detects DNA from Shady auris using Real-Time PCR. This assay is laboratory developed and is not cleared by the [facility] Food and Drug Administration. The performance characteristics have been verified by the [facility] Molecular Infectious Disease Laboratory. Axilla/Groin 04/19/2025 2:06 PM CDT 04/19/2025 2:56 PM CDT Narrative DULCE MARIA [facility] - 04/20/2025 2:56 AM CDT Order placed by [facility] due to ring surveillance. us Instant Order Generic Provider LAB MICROBIOLOGY - GENERAL ORDERABLES Final Result DULCE MARIA [facility] Department [place] [address] [facility] * Oxyhemoglobin, pulmonary artery (04/19/2025 9:05 AM CDT) Pathologist [facility] Oxyhemoglobin, PA 69.3 % Comment: Interpretive Data No reference range established. Current interpretive data was last revised 2020. Blood 04/19/2025 9:05 AM CDT 04/19/2025 9:50 AM CDT us Wang Almaraz MD LAB BLOOD ORDERABLES Final R esult [facility] [place] [employer] [place] [address] * Hemoglobin total, pulmonary artery (04/19/2025 9:05 AM CDT) Pathologist [facility] Hemoglobin total, PA 13.1 13.0 - 17.5 g/dL Blood 04/19/2025 9:05 AM CDT 04/19/2025 10:08 AM CDT us Wang Almaraz MD LAB BLOOD ORDERABLES Final R esult Performing Organization Address City/[facility]/ZIP Co de Phone Number [facility] [place] [address] * eGFR (04/19/2025 9:05 AM CDT) eGFR [...] LAB BLOOD ORDERABLES Final Result [facility] [place] [address] * Lactate, whole blood (04/19/2025 9:05 AM CDT) Lactate, bld 1.7 0.7 - 2.0 mmol/L Blood 04/19/2025 9:05 AM CDT 04/19/2025 9:58 AM CDT us Wang Almaraz MD LAB BLOOD ORDERABLES Final R esult Performing Organization Address City/[facility]/ZIP Co de Phone Number [facility] Department [place] [address] * Basic metabolic panel (04/19/2025 9:05 AM CDT) Pathologist [facility] Sodium 136 135 - 145 mmol/L Potassium, pl 4.3 3.3 - 4.9 mmol/L [facility] Chloride 99 97 - 110 mmol/L [facility] CO2 27 22 - 32 mmol/L [facility] Anion gap 10 2 - 15 mmol/L [facility] BUN 25 6 - 25 mg/dL [facility] Creatinine 1.24 0.80 - 1.30 mg/dL [facility] Glucose 189 70 - 199 mg/dL [facility] Comment: Interpretive Data Fasting glucose >/= 126 [...] 2022. Calcium 9.5 8.5 - 10.3 mg/dL [facility] Blood 04/19/2025 9:05 AM CDT 04/19/2025 10:33 AM CDT us Dinorah Kahn NP LAB BLOOD ORDERABLES Final Result Performing Organization Address [facility] Co de Phone Number [facility] Department [place] [address] * Oxyhemoglobin, pulmonary artery (04/18/2025 9:09 PM CDT) [facility] Oxyhemoglobin, PA 79.1 % Comment: Interpretive Data No reference range established. Current interpretive data was last revised 2020. Blood 04/18/2025 9:09 PM CDT 04/18/2025 9:37 PM CDT Wang Almaraz MD LAB BLOOD ORDERABLES Final R esult Performing Organization Address [facility]/ZIP Co de Phone Number [facility] [place] [address] * (ABNORMAL) aPTT (04/18/2025 9:09 PM CDT) [facility] aPTT 55(H) 28 - 38 sec Comment: Interpretive Data Heparin therapeutic range: 66.0 - 100.0 seconds. Range based on correlation with therapeutic heparin activity range of 0.3 - 0.7 Units/mL. Current interpretive data was last revised on 2023. Blood 04/18/2025 9:09 PM CDT 04/18/2025 9:56 PM CDT Narrative [facility] - 04/18/2025 10:07 PM CDT STAT PTT [...] ORDERABLES Final Re sult Performing Organization Address [facility]/ZIP Co de Phone Number [facility] [place] [address] * eGFR (04/18/2025 9:08 PM CDT) eGFR 60 >=60 mL/min/1. 73 [...] 9:08 PM CDT 04/18/2025 9:47 PM CDT us Libia Suarez PROGRAM SUPPORT CLERK LAB BLOOD ORDERABLES Final Re sult Performing Organization Address [facility] Co de Phone Number [facility] [place] [address] * Lactate, whole blood (04/18/2025 9:08 PM CDT) Lactate, bld 1.0 0.7 - 2.0 mmol/L Blood 04/18/2025 9:08 PM CDT 04/18/2025 9:37 PM CDT us Wang Almaraz MD LAB BLOOD ORDERABLES Final R esult Performing Organization Address City/[facility] Co de Phone Number [facility] [place] [address] * (ABNORMAL) CBC without differential (04/18/2025 9:08 PM CDT) [facility] WBC 7.97 3.80 - 9.90 K/cumm Hgb 13.2 13.0 - 17.5 g/dL [facility] Hct 40.6 38.9 - 50.3 % [facility] Plt 188 150 - 400 K/cumm [facility] MPV 11.5 9.1 - 12.3 fL [facility] RBC 4.90 4.30 - 5.80 M/cumm [facility] MCV 82.9 81.3 - 96.4 fL [facility] MCH 26.9(L) 27.1 - 33.3 pg [facility] MCHC 32.5 32.3 - 35.7 g/dL [facility] RDW CV 16.2(H) 11.1 - 14.9 % [facility] RDW SD 48.8(H) 35.7 - 48.1 fL [facility] NRBC abs 0.00 0.00 - 0.01 K/cumm [facility] Blood 04/18/2025 9:08 PM CDT 04/18/2025 9:47 PM CDT Libia Suarez PROGRAM SUPPORT CLERK LAB BLOOD ORDERABLES Final Re sult Performing Organization Address [facility] Co de Phone Number [facility] [place] [employer] [place] [address] * Phosphorus (04/18/2025 9:08 PM CDT) [facility] Phosphorus, pl 4.1 2.3 - 4.5 mg/dL Blood 04/18/2025 9:08 PM CDT 04/18/2025 9:47 PM CDT Libia Suarez PROGRAM SUPPORT CLERK LAB BLOOD ORDERABLES Final Re sult Performing Organization Address [facility] Co de Phone Number [facility] [place] [address] * Magnesium (04/18/2025 9:08 PM CDT) [facility] Magnesium 2.1 1.4 - 2.5 mg/dL Blood 04/18/2025 9:08 PM CDT 04/18/2025 9:47 PM CDT Libia Suarez PROGRAM SUPPORT CLERK LAB BLOOD ORDERABLES Final Re sult Performing Organization Address [facility] de Phone Number [facility] Department [place] [address] * (ABNORMAL) Hepatic function panel (04/18/2025 9:08 PM CDT) [facility] Bilirubin, total 0.7 0.1 - 1.2 mg/dL Bilirubin, direct 0.3 0.1 - 0.3 mg/dL [facility] Protein, pl 6.6 6.5 - 8.5 g/dL [facility] Albumin 4.0 3.5 - 5.0 g/dL [facility] Alk phos 229(H) 40 - 130 Units/L [facility] ALT 19 7 - 55 Units/L [facility] AST 25 10 - 50 Units/L [facility] Blood 04/18/2025 9:08 PM CDT 04/18/2025 9:47 PM CDT Libia Suarez PROGRAM SUPPORT CLERK LAB BLOOD ORDERABLES Final Re sult Performing Organization Address [facility] Co de Phone Number [facility] Department [place] [address] * (ABNORMAL) Basic metabolic panel (04/18/2025 9:08 PM CDT) [facility] Sodium 136 135 - 145 mmol/L Potassium, pl 4.7 3.3 - 4.9 mmol/L [facility] Chloride 99 97 - 110 mmol/L [facility] CO2 26 22 - 32 mmol/L [facility] Anion gap 11 2 - 15 mmol/L [facility] BUN 28(H) 6 - 25 mg/dL [facility] Creatinine 1.35(H) 0.80 - 1.30 mg/dL [facility] Glucose 123 70 - 199 mg/dL [facility] Comment: Interpretive Data Fasting glucose >/= 126 [...] 2022. Calcium 9.5 8.5 - 10.3 mg/dL [facility] Blood 04/18/2025 9:08 PM CDT 04/18/2025 9:47 PM CDT us Libia Suarez PROGRAM SUPPORT CLERK LAB BLOOD ORDERABLES Final Re sult Performing Organization Address City/[facility]/ZIP Co de Phone Number [facility] [place] [address] * IR Outside Reference (04/18/2025 1:54 PM CDT) Impressions [facility] - 04/18/2025 1:54 PM CDT These images are for Reference purposes only and have not been reviewed by [facility] Radiology. There will be no report generated by a [facility] Radiologist. Narrative [facility] - 04/18/2025 1:54 PM CDT EXAMINATION: Images For Reference Purposes Only us Yaakov Lawrence MD PhD IMG IR PROCEDURES Final Result Performing Organization Address City/[facility]/ZIP Co de Phone Number [email or web address] * XR Chest 1 View (04/18/2025 9:43 AM CDT) Anatomical Region Laterality Modality Body, Chest N/A Digital Radiogra phy 04/18/2025 10:5 3 AM CDT Impressions 04/18/2025 11:07 AM CDT Comparison 04/17/2025. Left internal jugular Packwood-Jayne catheter overlying the right interlobar pulmonary artery. [...] radiograph IMPRESSION: Comparison 04/17/2025. Left internal jugular Packwood-Jayne catheter overlying the right interlobar pulmonary artery. [...] LAB BLOOD ORDERABLES Final R esult [facility] [place] [address] * Hemoglobin total, pulmonary artery (04/18/2025 9:03 AM CDT) Hemoglobin total, PA 13.6 13.0 - 17.5 g/dL Blood 04/18/2025 9:03 AM CDT 04/18/2025 9:21 AM CDT us Libia Suarez PROGRAM SUPPORT CLERK LAB BLOOD ORDERABLES Final Re sult Performing Organization Address [facility] [place] [address] * Lactate, whole blood (04/18/2025 9:03 AM CDT) Pathologist [facility] Lactate, bld 1.6 0.7 - 2.0 mmol/L Blood 04/18/2025 9:03 AM CDT 04/18/2025 9:21 AM CDT us Wang Almaraz MD LAB BLOOD ORDERABLES Final R esult Performing Organization Address [facility] Co de Phone Number [facility] [place] [address] * Potassium, whole blood (04/18/2025 6:23 AM CDT) Potassium, bld 4.6 3.3 - 4.9 mmol/L Blood 04/18/2025 6:23 AM CDT 04/18/2025 6:44 AM CDT us Dinorah Kahn NP LAB BLOOD ORDERABLES Final Result Performing Organization Address [facility] Co de Phone Number [facility] [employer] [place], [place] [id number] * (ABNORMAL) aPTT (04/18/2025 5:31 AM CDT) aPTT 61(H) 28 - 38 sec Comment: Interpretive Data Heparin therapeutic range: 66.0 - 100.0 seconds. Range based on correlation with therapeutic heparin activity range of 0.3 - 0.7 Units/mL. Current interpretive data was last revised on 2023. Blood 04/18/2025 5:31 AM CDT 04/18/2025 6:48 AM CDT Narrative DULCE MARIA [facility] - 04/18/2025 6:57 AM CDT STAT PTT [...] peripherally (not from CVC). us Libia Suarez PROGRAM SUPPORT CLERK LAB BLOOD ORDERABLES Final Re sult Performing Organization Address [facility]/ZIP Co de Phone Number [facility] [place] [address] * Oxyhemoglobin, pulmonary artery (04/17/2025 8:31 PM CDT) Oxyhemoglobin, PA 72.6 % Comment: Interpretive Data No reference range established. Current interpretive data was last revised 2020. Blood 04/17/2025 8:31 PM CDT 04/17/2025 8:43 PM CDT us Wang Almaraz MD LAB BLOOD ORDERABLES Final R esult Performing Organization Address City/[facility]/ZIP Co de Phone Number [facility] [place] [address] * Hemoglobin total, pulmonary artery (04/17/2025 8:31 PM CDT) Hemoglobin total, PA 13.6 13.0 - 17.5 g/dL Blood 04/17/2025 8:31 PM CDT 04/17/2025 8:43 PM CDT us Wang Almaraz MD LAB BLOOD ORDERABLES Final R esult Performing Organization Address [facility]/[place] [address] * eGFR (04/17/2025 8:31 PM CDT) Pathologist [facility] eGFR 64 >=60 mL/min/1. 73 m2 Comment: [...] 04/17/2025 8:45 PM CDT us Libia Suarez NP LAB BLOOD ORDERABLES Final Re sult DULCE MARIA [facility] [place] [address] * Lactate, whole blood (04/17/2025 8:31 PM CDT) [facility] Lactate, bld 1.1 0.7 - 2.0 mmol/L Blood 04/17/2025 8:31 PM CDT 04/17/2025 8:43 PM CDT us Wang Almaraz MD LAB BLOOD ORDERABLES Final R esult Performing Organization Address [facility]/ZIP Co de Phone Number [facility] [place] [address] * (ABNORMAL) CBC without differential (04/17/2025 8:31 PM CDT) [facility] WBC 7.87 3.80 - 9.90 K/cumm Hgb 13.4 13.0 - 17.5 g/dL [facility] Hct 40.9 38.9 - 50.3 % [facility] Plt 166 150 - 400 K/cumm [facility] MPV 11.5 9.1 - 12.3 fL [facility] RBC 4.94 4.30 - 5.80 M/cumm [facility] MCV 82.8 81.3 - 96.4 fL [facility] MCH 27.1 27.1 - 33.3 pg [facility] MCHC 32.8 32.3 - 35.7 g/dL [facility] RDW CV 16.3(H) 11.1 - 14.9 % [facility] RDW SD 48.8(H) 35.7 - 48.1 fL [facility] NRBC abs 0.00 0.00 - 0.01 K/cumm [facility] Blood 04/17/2025 8:31 PM CDT 04/17/2025 8:46 PM CDT Libia Suarez NP LAB BLOOD ORDERABLES Final Re sult Performing Organization Address City/[facility]/ZIP Co de Phone Number [facility] [place] [address] * Phosphorus (04/17/2025 8:31 PM CDT) Pathologist [facility] Phosphorus, pl 3.5 2.3 - 4.5 mg/dL Blood 04/17/2025 8:31 PM CDT 04/17/2025 8:45 PM CDT Libia Suarez PROGRAM SUPPORT CLERK LAB BLOOD ORDERABLES Final Re sult Performing Organization Address City/[facility]/[place] [address] * Magnesium (04/17/2025 8:31 PM CDT) [facility] Magnesium 2.1 1.4 - 2.5 mg/dL Blood 04/17/2025 8:31 PM CDT 04/17/2025 8:45 PM CDT Libia Suarez PROGRAM SUPPORT CLERK LAB BLOOD ORDERABLES Final Re sult Performing Organization Address City/[facility] Co de Phone Number [facility] [place] [address] * (ABNORMAL) Hepatic function panel (04/17/2025 8:31 PM CDT) [facility] Bilirubin, total 0.7 0.1 - 1.2 mg/dL Bilirubin, direct 0.3 0.1 - 0.3 mg/dL [facility] Protein, pl 5.9(L) 6.5 - 8.5 g/dL [facility] Albumin 3.7 3.5 - 5.0 g/dL [facility] Alk phos 209(H) 40 - 130 Units/L [facility] ALT 17 7 - 55 Units/L [facility] AST 25 10 - 50 Units/L [facility] Blood 04/17/2025 8:31 PM CDT 04/17/2025 8:45 PM CDT Libia Suarez PROGRAM SUPPORT CLERK LAB BLOOD ORDERABLES Final Re sult DULCE MARIA [facility] Department [place] [address] * (ABNORMAL) Basic metabolic panel (04/17/2025 8:31 PM CDT) Sodium 133(L) 135 - 145 mmol/L Potassium, pl 5.1(H) 3.3 - 4.9 mmol/L [facility] Chloride 100 97 - 110 mmol/L [facility] CO2 24 22 - 32 mmol/L [facility] Anion gap 9 2 - 15 mmol/L [facility] BUN 25 6 - 25 mg/dL [facility] Creatinine 1.28 0.80 - 1.30 mg/dL [facility] Glucose 136 70 - 199 mg/dL [facility] Comment: Interpretive Data Fasting glucose >/= 126 [...] 2022. Calcium 9.4 8.5 - 10.3 mg/dL [facility] Blood 04/17/2025 8:31 PM CDT 04/17/2025 8:45 PM CDT Libia Suarez PROGRAM SUPPORT CLERK LAB BLOOD ORDERABLES Final Re sult Performing Organization Address [facility]/ZIP Co de Phone Number DULCE MARIA [facility] [place] [address] * US Outside Reference (04/17/2025 7:04 PM CDT) Impressions RAD_PACS[facility] - 04/17/2025 7:04 PM CDT These images are for Reference purposes only and have not been reviewed by [facility] Radiology. There will be no report generated by a [facility] Radiologist. Narrative RAD_PACS[facility] - 04/17/2025 7:04 PM CDT EXAMINATION: Images For Reference Purposes Only us Carlos Fernandes MD PhD IMG US PROCEDURES Final Result Performing Organization Address [facility] Co de Phone Number [email or web address] * US Outside Reference (04/17/2025 7:03 PM CDT) Impressions [facility] - 04/17/2025 7:03 PM CDT These images are for Reference purposes only and have not been reviewed by [facility] Radiology. There will be no report generated by a [facility] Radiologist. Narrative [facility] - 04/17/2025 7:03 PM CDT EXAMINATION: Images For Reference Purposes Only us Carlos Fernandes MD PhD IM US PROCEDURES Final Result Performing Organization Address [facility] de Phone Number [email or web address] * Oxyhemoglobin, pulmonary artery (04/17/2025 3:37 PM CDT) Oxyhemoglobin, PA 63.5 % Comment: Interpretive Data No reference range established. Current interpretive data was last revised 2020. Blood 04/17/2025 3:37 PM CDT 04/17/2025 3:44 PM CDT us Wang Almaraz MD LAB BLOOD ORDERABLES Final R esult Performing Organization Address [facility] Co de Phone Number DULCE MARIA [facility] [place] [address] * (ABNORMAL) Type and screen (04/17/2025 3:37 PM CDT) Poppy, indirect Positive(A) ABO Rh O Positive [facility] Blood 04/17/2025 3:37 PM CDT 04/17/2025 3:59 PM CDT Narrative [facility] - 04/17/2025 5:20 PM CDT Has the patient had Daratumumab or Isatuximab in the past 6 months?->Unknown Wang Almaraz MD LAB BLOOD BANK TEST ORDERABL ES Final Result Performing Organization Address [facility] [place] [address] * Oxyhemoglobin, pulmonary artery (04/17/2025 11:37 AM CDT) Pathologist [facility] Oxyhemoglobin, PA 68.4 % Comment: Interpretive Data No reference range established. Current interpretive data was last revised 2020. Blood 04/17/2025 11:3 7 AM CDT 04/17/2025 11:45 AM CDT Wang Almaraz MD LAB BLOOD ORDERABLES Final R esult Performing Organization Address [facility] Co de Phone Number [facility] [place] [address] * TRANSTHORACIC ECHO (TTE) COMPLETE W DOPPLER/CF W CONTRAST (04/17/2025 9:52 AM CDT) Pathologist [facility] EF Mod BP 27 % CONS SCIMAGE Anatomical Region Laterality Modality Ultrasound 04/17/2025 8:56 AM CDT Narrative 04/17/2025 1:05 PM CDT [facility] [place] [address] Transthoracic Echocardiographic Report Patient Name: AVAEzio William ELISE : 1965 (59y 11m) Gender: M Study Date: 04/17/2025 08:56:38 AM Ht(Inch): 72 Wt(Lb): 173.94 BSA: 2 Professor Of Psychology: Gina VillalobosEBONY Location: [id number] Order Provider: WANG ALMARAZ Heart Rate: 104 [...] Procedure Note Michael Zelaya MD - 04/17/2025 [facility] [place] [address] Transthoracic Echocardiographic Report Patient Name: GOSIA ZUNIGA W : 1965 (59y 11m) Gender: M Study Date: 04/17/2025 08:56:38 AM Ht(Inch): 72 Wt(Lb): 173.94 BSA: 2 Professor Of Psychology: Gina Villalobos [facility] Location: [id number] Order Provider:WANG ALMARAZ Heart Rate: 104 BMI: [...] LA Length 4C 7.16 cm MV Decel Ceta170.14 msec [ 104.00 - 258.00 ] LA Length 2C 6.26 cm RV S`10.46 cm/sec LA Volume BP 58.31 ml TR Peak Vel2.7 m/s [ 1.0 - 2.8 ] LA Volume Index 29.16 ml/m2 [ 16.00 - 34.00 ] TR Peak PG29.2 mmHg RV Base Dimen 2D 5.3 cm [ 2.5 - 4.2 ] TAPSE 1.47 cm [ 1.71 - 5.00 ] RA Nqjcnd911.70 ml RA Volume Index70.35 ml/m2 AoR Diam 2D 3.51 cm [ 3.10 - 3.70 ] Ao Root Index 1.76 cm/m2 [ 1.00 - 2.00 ] Asc Ao Diam 2D3.35 cm Asc Ao Index1.68 cm/m2 Electronically Signed By: Michael Zelaya MD 04/17/2025 1:05:30 PM CDT Wang Almaraz MD CV ECHO PROCEDURES Final Res ult * Antibody identification (04/17/2025 9:07 AM CDT) Antibody ID 1 Anti-CD38 Comment:Panreactive -CD38 on reagent RBCs reacting with anti-CD38 therapy. DTT treatment removes cell surface CD38 and allows detection of common clinically significant antibodies except those against Dilma antigens. TRANSFUSION 2015;[id number] Blood 04/17/2025 9:07 AM CDT 04/17/2025 9:07 AM CDT us Yaakov Lawrence MD PhD LAB BLOOD BANK WICHO T ORDERABLES Final Result DULCE MARIA [facility] [place] [address] * XR Chest 1 View (04/17/2025 8:36 AM CDT) Anatomical Region Laterality Modality Body, Chest N/A Computed Radiogr aphy 04/17/2025 11:4 6 AM CDT Impressions 04/17/2025 11:57 AM CDT Comparison is made to chest radiograph 04/16/2025. A left internal jugular Packwood-Jayne catheter tip terminates within the right pulmonary [...] chest radiograph 04/16/2025. A left internal jugular Packwood-Jayne catheter tip terminates within the right pulmonary [...] * (ABNORMAL) aPTT (04/17/2025 8:05 AM CDT) aPTT 51(H) 28 - 38 sec Comment: Interpretive Data Heparin therapeutic range: 66.0 - 100.0 seconds. Range based on correlation with therapeutic heparin activity range of 0.3 - 0.7 Units/mL. Current interpretive data was last revised on 2023. Blood 04/17/2025 8:05 AM CDT 04/17/2025 8:25 AM CDT Narrative DULCE MARIA [facility] - 04/17/2025 9:03 AM CDT STAT PTT [...] drawn peripherally (not from CVC). Libia Suarez PROGRAM SUPPORT CLERK LAB BLOOD ORDERABLES Final Re sult [employer] [facility] [place] [address] * Lactate, whole blood (04/17/2025 7:57 AM CDT) [facility] Lactate, bld 0.8 0.7 - 2.0 mmol/L Blood 04/17/2025 7:57 AM CDT 04/17/2025 8:06 AM CDT Wang Almaraz MD LAB BLOOD ORDERABLES Final R esult Performing Organization Address City/[facility] Co de Phone Number [facility] Department [place] [address] * Oxyhemoglobin, pulmonary artery (04/17/2025 7:52 AM CDT) Oxyhemoglobin, PA 68.0 % Comment: Interpretive Data No reference range established. Current interpretive data was last revised 2020. Blood 04/17/2025 7:52 AM CDT 04/17/2025 8:06 AM CDT Wang Almaraz MD LAB BLOOD ORDERABLES Final R esult Performing Organization Address City/[facility] Co de Phone Number [facility] Department [place] [address] * eGFR (04/17/2025 7:52 AM CDT) eGFR 77 >=60 mL/min/1. 73 m2 Comment: [...] ORDERABL ES Final Result Performing Organization Address [facility] Co de Phone Number [facility] [place] [address] * (ABNORMAL) CBC without differential (04/17/2025 7:52 AM CDT) WBC 7.93 3.80 - 9.90 K/cumm Hgb 12.6(L) 13.0 - 17.5 g/dL [facility] Hct 39.2 38.9 - 50.3 % [facility] Plt 159 150 - 400 K/cumm [facility] MPV 11.5 9.1 - 12.3 fL [facility] RBC 4.62 4.30 - 5.80 M/cumm [facility] MCV 84.8 81.3 - 96.4 fL [facility] MCH 27.3 27.1 - 33.3 pg [facility] MCHC 32.1(L) 32.3 - 35.7 g/dL [facility] RDW CV 16.1(H) 11.1 - 14.9 % [facility] RDW SD 49.9(H) 35.7 - 48.1 fL [facility] NRBC abs 0.00 0.00 - 0.01 K/cumm [facility] Blood 04/17/2025 7:52 AM CDT 04/17/2025 8:05 AM CDT Yaakov Lawrence MD PhD LAB BLOOD ORDERABL ES Final Result Performing Organization Address [facility]/ZIP Co de Phone Number [facility] [place] [address] * (ABNORMAL) Type and screen (04/17/2025 7:52 AM CDT) [facility] ABO Rh O Positive Poppy, indirect Positive(A) [facility] Blood 04/17/2025 7:52 AM CDT 04/17/2025 8:10 AM CDT Narrative [facility] - 04/17/2025 9:07 AM CDT Has the patient had Daratumumab or Isatuximab in the past 6 months?->Unknown Yaakov Lawrence MD PhD LAB BLOOD BANK WICHO T ORDERABLES Final Result [facility] [place] [address] * Phosphorus (04/17/2025 7:52 AM CDT) [facility] Phosphorus, pl 3.3 2.3 - 4.5 mg/dL Blood 04/17/2025 7:52 AM CDT 04/17/2025 8:05 AM CDT Yaakov Lawrence MD PhD LAB BLOOD ORDERABL ES Final Result Performing Organization Address City/[facility] Co de Phone Number [facility] Department [place] [address] * Magnesium (04/17/2025 7:52 AM CDT) [facility] Magnesium 2.1 1.4 - 2.5 mg/dL Blood 04/17/2025 7:52 AM CDT 04/17/2025 8:05 AM CDT Yaakov Lawrence MD PhD LAB BLOOD ORDERABL ES Final Result Performing Organization Address City/[facility] Co de Phone Number [facility] [place] [address] * (ABNORMAL) Hepatic function panel (04/17/2025 7:52 AM CDT) [facility] Bilirubin, total 0.9 0.1 - 1.2 mg/dL Bilirubin, direct 0.4(H) 0.1 - 0.3 mg/dL [facility] Protein, pl 6.0(L) 6.5 - 8.5 g/dL [facility] Albumin 3.8 3.5 - 5.0 g/dL [facility] Alk phos 193(H) 40 - 130 Units/L [facility] ALT 17 7 - 55 Units/L [facility] AST 19 10 - 50 Units/L [facility] Blood 04/17/2025 7:52 AM CDT 04/17/2025 8:05 AM CDT Yaakov Lawrence MD PhD LAB BLOOD ORDERABL ES Final Result [facility] Department [place] [address] * Basic metabolic panel (04/17/2025 7:52 AM CDT) [facility] Sodium 136 135 - 145 mmol/L Potassium, pl 4.7 3.3 - 4.9 mmol/L [facility] Chloride 103 97 - 110 mmol/L [facility] CO2 24 22 - 32 mmol/L [facility] Anion gap 9 2 - 15 mmol/L [facility] BUN 23 6 - 25 mg/dL [facility] Creatinine 1.10 0.80 - 1.30 mg/dL [facility] Glucose 110 70 - 199 mg/dL [facility] Comment: Interpretive Data Fasting glucose >/= 126 [...] 2022. Calcium 9.2 8.5 - 10.3 mg/dL [facility] Blood 04/17/2025 7:52 AM CDT 04/17/2025 8:05 AM CDT Yaakov Lawrence MD PhD LAB BLOOD ORDERABL ES Final Result Performing Organization Address [facility] Co de Phone Number [facility] [place] [address] * (ABNORMAL) aPTT (04/17/2025 6:24 AM CDT) aPTT 58(H) 28 - 38 sec Comment: Interpretive Data Heparin therapeutic range: 66.0 - 100.0 seconds. Range based on correlation with therapeutic heparin activity range of 0.3 - 0.7 Units/mL. Current interpretive data was last revised on 2023. Blood 04/17/2025 6:24 AM CDT 04/17/2025 6:44 AM CDT Narrative [facility] - 04/17/2025 7:07 AM CDT STAT PTT [...] drawn peripherally (not from CVC). Libia Suarez PROGRAM SUPPORT CLERK LAB BLOOD ORDERABLES Final Re sult Performing Organization Address [facility]/ZIP Co de Phone Number [facility] Department [place] [address] * Oxyhemoglobin, pulmonary artery (04/17/2025 4:30 AM CDT) Oxyhemoglobin, PA 64.5 % Comment: Interpretive Data No reference range established. Current interpretive data was last revised 2020. Blood 04/17/2025 4:30 AM CDT 04/17/2025 4:39 AM CDT Wang Almaraz MD LAB BLOOD ORDERABLES Final R esult Performing Organization Address [facility] Co de Phone Number [facility] [place] [address] * Hemoglobin total, pulmonary artery (04/17/2025 4:30 AM CDT) Hemoglobin total, PA 13.9 13.0 - 17.5 g/dL Blood 04/17/2025 4:30 AM CDT 04/17/2025 4:39 AM CDT Wang Almaraz MD LAB BLOOD ORDERABLES Final R esult Performing Organization Address [facility] de Phone Number [facility] [place] [employer] [place] [address] * (ABNORMAL) aPTT (04/17/2025 4:30 AM CDT) Pathologist [facility] aPTT 77(H) 28 - 38 sec Comment: Interpretive Data Heparin therapeutic range: 66.0 - 100.0 seconds. Range based on correlation with therapeutic heparin activity range of 0.3 - 0.7 Units/mL. Current interpretive data was last revised on 2023. Blood 04/17/2025 4:30 AM CDT 04/17/2025 4:45 AM CDT Narrative [employer] [facility] [employer] [facility] [facility] - 04/17/2025 5:13 AM CDT STAT PTT [...] drawn peripherally (not from CVC). Libia Suarez PROGRAM SUPPORT CLERK LAB BLOOD ORDERABLES Final Re sult Performing Organization Address [facility] Co de Phone Number [facility] [place] [address] * Oxyhemoglobin, pulmonary artery (04/16/2025 8:59 PM CDT) Oxyhemoglobin, PA 73.5 % Comment: Interpretive Data No reference range established. Current interpretive data was last revised 2020. Blood 04/16/2025 8:59 PM CDT 04/16/2025 9:07 PM CDT Wang Almaraz MD LAB BLOOD ORDERABLES Final R esult Performing Organization Address [facility] [place] [address] * Hemoglobin total, pulmonary artery (04/16/2025 8:59 PM CDT) Hemoglobin total, PA 13.9 13.0 - 17.5 g/dL Blood 04/16/2025 8:59 PM CDT 04/16/2025 9:07 PM CDT Wang Almaraz MD LAB BLOOD ORDERABLES Final R esult Performing Organization Address [facility] Co de Phone Number [facility] [place] [address] * Lactate, whole blood (04/16/2025 8:59 PM CDT) Lactate, bld 1.8 0.7 - 2.0 mmol/L Blood 04/16/2025 8:59 PM CDT 04/16/2025 9:07 PM CDT us Wang Almaraz MD LAB BLOOD ORDERABLES Final R esult Performing Organization Address City/[facility]/ZIP Co de Phone Number DULCE MARIA [facility] Department [place] [address] * ECG 12 lead (04/16/2025 5:55 PM CDT) Ventricular Rate EKG/Min 104 BPM [facility] Atrial Rate 104 BPM [facility] [place]-Interval (MSEC) 212 ms [facility] QRS-Interval (MSEC) 98 ms [facility] QT-Interval (MSEC) 334 ms [facility] QTc 439 ms [facility] P [place] 81 degrees [facility] R [place] -87 degrees [facility] T [place] 78 degrees [facility] Diagnosis Sinus tachycardia with 1st degree A-V block Left axis deviation Low voltage QRS Incomplete right bundle branch block Possible Inferior infarct (cited on or before 28-NOV-2023) Cannot rule out Anterior infarct (cited on or before 01-JUL-2021) Abnormal ECG When compared with ECG of 08-APR-2025 08:19, No significant change was found Confirmed by Ok Cordero MD ([id number]) on 04/17/2025 10:43:48 AM [facility] 04/16/2025 5:55 PM CDT 04/17/2025 10:43 AM CDT us Yaakov Lawrence MD PhD ECG ORDERABLES Fi nal Result [facility] * Blood culture Blood (04/16/2025 5:51 PM CDT) Report Final Report: No growth Blood 04/16/2025 5:51 PM CDT 04/16/2025 6:26 PM CDT Narrative DULCE MARIA [facility] - 04/21/2025 7:00 AM CDT From a [...] characteristics have been verified by the [facility] Microbiology Laboratory. For questions about this culture, contact the Microbiology Laboratory at [phone]. Interpretive data was last revised on 24. Yaakov Lawrence MD PhD LAB MICROBIOLOGY - GENERAL ORDERABLES Final Result DULCE MARIA [facility] [place] [address] * Blood culture Blood (04/16/2025 5:51 PM CDT) Report Final Report: No growth Blood 04/16/2025 5:51 PM CDT 04/16/2025 6:26 PM CDT Narrative DULCE MARIA [facility] - 04/21/2025 7:00 AM CDT Collection->Peripheral 1. [...] characteristics have been verified by the [facility] Microbiology Laboratory. For questions about this culture, contact the Microbiology Laboratory at [phone]. Interpretive data was last revised on 24. us Yaakov Lawrence MD PhD LAB MICROBIOLOGY - GENERAL ORDERABLES Final Result [facility] [place] [address] * XR Chest 1 View (04/16/2025 5:48 PM CDT) Anatomical Region Laterality Modality Body, Chest N/A Digital Radiogra phy 04/17/2025 7:37 AM CDT Impressions 04/17/2025 7:37 AM CDT Comparison 04/09/2025. Packwood-Jayne catheter in place with tip projecting over [...] 1 view chest radiograph IMPRESSION: Comparison 04/09/2025. Packwood-Jayne catheter in place with tip projecting over [...] MD LAB BLOOD ORDERABLES Final R esult [facility] [place] [address] * Protime-INR (04/16/2025 5:37 PM CDT) PT 11.5 9.7 - 13.0 sec INR 1.06 0.90 - 1.20 [facility] Comment: Interpretive data Oral anticoagulant therapeutic ranges: Venous thromboembolism prophylaxis or treatment: 2.0-3.0 CARDIOLOGY Standard range: 2.0-3.0 High-intensity range: 2.5-3.5 Refer to indication-specific guidelines for appropriate target ranges for prosthetic heart valve replacement. Current interpretive data was last revised on 2019. Blood 04/16/2025 5:37 PM CDT 04/16/2025 5:46 PM CDT us Yaakov Lawrence MD PhD LAB BLOOD ORDERABL ES Final Result Performing Organization Address [facility] Co de Phone Number DULCE MARIA [facility] [place] [address] * eGFR (04/16/2025 5:33 PM CDT) eGFR [...] ORDERABL ES Final Result Performing Organization Address [facility] Co de Phone Number DULCE MARIA [facility] Department [place] [address] * Lactate, whole blood (04/16/2025 5:33 PM CDT) Lactate, bld 1.0 0.7 - 2.0 mmol/L Blood 04/16/2025 5:33 PM CDT 04/16/2025 5:45 PM CDT Yaakov Lawrence MD PhD LAB BLOOD ORDERABL ES Final Result Performing Organization Address [facility] de Phone Number [facility] Department [place] [address] * (ABNORMAL) CBC without differential (04/16/2025 5:33 PM CDT) [facility] WBC 7.51 3.80 - 9.90 K/cumm Hgb 13.4 13.0 - 17.5 g/dL [facility] Hct 41.9 38.9 - 50.3 % [facility] Plt 161 150 - 400 K/cumm [facility] MPV 11.2 9.1 - 12.3 fL [facility] RBC 4.99 4.30 - 5.80 M/cumm [facility] MCV 84.0 81.3 - 96.4 fL [facility] MCH 26.9(L) 27.1 - 33.3 pg [facility] MCHC 32.0(L) 32.3 - 35.7 g/dL [facility] RDW CV 16.1(H) 11.1 - 14.9 % [facility] RDW SD 48.3(H) 35.7 - 48.1 fL [facility] NRBC abs 0.00 0.00 - 0.01 K/cumm [facility] Blood 04/16/2025 5:33 PM CDT 04/16/2025 6:04 PM CDT Yaakov Lawrence MD PhD LAB BLOOD ORDERABL ES Final Result Performing Organization Address [facility] Co de Phone Number [facility] Department [place] [address] * Basic metabolic panel (04/16/2025 5:33 PM CDT) [facility] Sodium 138 135 - 145 mmol/L Potassium, pl 4.9 3.3 - 4.9 mmol/L [facility] Chloride 101 97 - 110 mmol/L [facility] CO2 26 22 - 32 mmol/L [facility] Anion gap 11 2 - 15 mmol/L [facility] BUN 24 6 - 25 mg/dL [facility] Creatinine 1.19 0.80 - 1.30 mg/dL [facility] Glucose 94 70 - 199 mg/dL [facility] Comment: Interpretive Data Fasting glucose >/= 126 [...] 2022. Calcium 9.8 8.5 - 10.3 mg/dL [facility] Blood 04/16/2025 5:33 PM CDT 04/16/2025 6:04 PM CDT Yaakov Lawrence MD PhD LAB BLOOD ORDERABL ES Final Result [facility] [place] [address] * RIGHT HEART CATH (04/16/2025 12:09 PM [...] usual sterile fashion. 3) I provided direct [id number] monitoring of conscious sedation which was administered by an independent trained nurse using Fentanyl 25 mcg and Midazolam 1 mg. Sedation time 50 min. Local anesthesia with 1% lidocaine was used. 4) Venous access was obtained in theLeft Internal Jugular vein using modified Seldinger technique and micropuncture approach. A 8 Pakistani sheath was secured into place. 5) Right heart catheterization was performed with a 7.5 Pakistani VIP Eliel Jayne catheter. The catheter was [...] with the referring physician. Felicitas Rodgers DO District Sales Coordinator Division of Cardiology [facility] [employer] Araceli Romero NP CV CARDIAC CATH PROCEDUR ES Final Result * (ABNORMAL) POCT oxyhemoglobin (04/16/2025 11:50 AM CDT) [facility] ESL TUTOR Oxyhemoglobin 68.2 >=65.0 % ESL TUTOR Hemoglobin 12.6(L) 13.0 - 17.5 g/dL [facility] ESL TUTOR O2 content 11.9(L) 15.0 - 22.0 Vol % [facility] Anatomic Site aPOC Pulm Artery [facility] Blood 04/16/2025 11:5 0 AM CDT 04/16/2025 11:50 AM CDT Yaakov Lawrence MD PhD LAB POCT ORDERABLE S - DEVICE Final Result Performing Organization Address [facility] Co de Phone Number [facility] [place] [address] * (ABNORMAL) POCT oxyhemoglobin (04/16/2025 11:49 AM CDT) [facility] ESL TUTOR Oxyhemoglobin 68.8 >=65.0 % ESL TUTOR Hemoglobin 12.8(L) 13.0 - 17.5 g/dL [facility] ESL TUTOR O2 content 12.3(L) 15.0 - 22.0 Vol % [facility] Anatomic Site aPOC Pulm Artery [facility] Blood 04/16/2025 11:4 9 AM CDT 04/16/2025 11:49 AM CDT Yaakov Lawrence MD PhD LAB POCT ORDERABLE S - DEVICE Final Result Performing Organization Address City/[facility] Co de Phone Number [facility] [place] [address] * eGFR (04/16/2025 5:58 AM CDT) [facility] eGFR 63 >=60 mL/min/1. 73 m2 [...] 04/16/2025 6:45 AM CDT us Blake Peña PROGRAM SUPPORT CLERK LAB BLOOD ORDERABLES Final Result DULCE MARIA ARAN[facility] [place] [address] * (ABNORMAL) aPTT (04/16/2025 5:58 AM CDT) aPTT 70(H) 28 - 38 sec Comment: Interpretive Data Heparin therapeutic range: 66.0 - 100.0 seconds. Range based on correlation with therapeutic heparin activity range of 0.3 - 0.7 Units/mL. Current interpretive data was last revised on 2023. Blood 04/16/2025 5:58 AM CDT 04/16/2025 6:52 AM CDT Narrative DULCE MARIA [facility] - 04/16/2025 7:01 AM CDT STAT PTT [...] peripherally (not from CVC). us Libia Suarez PROGRAM SUPPORT CLERK LAB BLOOD ORDERABLES Final Re sult Performing Organization Address City/[facility]/ZIP Co de Phone Number [facility] Department [place] [address] * (ABNORMAL) CBC without differential (04/16/2025 5:58 AM CDT) Pathologist [facility] WBC 8.28 3.80 - 9.90 K/cumm Hgb 13.2 13.0 - 17.5 g/dL [facility] Hct 41.5 38.9 - 50.3 % [facility] Plt 176 150 - 400 K/cumm [facility] MPV 12.0 9.1 - 12.3 fL [facility] RBC 4.99 4.30 - 5.80 M/cumm [facility] MCV 83.2 81.3 - 96.4 fL [facility] MCH 26.5(L) 27.1 - 33.3 pg [facility] MCHC 31.8(L) 32.3 - 35.7 g/dL [facility] RDW CV 15.9(H) 11.1 - 14.9 % [facility] RDW SD 47.2 35.7 - 48.1 fL [facility] NRBC abs 0.00 0.00 - 0.01 K/cumm [facility] Blood 04/16/2025 5:58 AM CDT 04/16/2025 6:45 AM CDT us Blake Peña PROGRAM SUPPORT CLERK LAB BLOOD ORDERABLES Final Result [facility] Department [place] [address] * (ABNORMAL) Basic metabolic panel (04/16/2025 5:58 AM CDT) Pathologist [facility] Sodium 134(L) 135 - 145 mmol/L Potassium, pl 4.7 3.3 - 4.9 mmol/L [facility] Chloride 98 97 - 110 mmol/L [facility] CO2 28 22 - 32 mmol/L [facility] Anion gap 8 2 - 15 mmol/L [facility] BUN 31(H) 6 - 25 mg/dL [facility] Creatinine 1.30 0.80 - 1.30 mg/dL [facility] Glucose 104 70 - 199 mg/dL [facility] Comment: Interpretive Data Fasting glucose >/= 126 [...] 2022. Calcium 9.9 8.5 - 10.3 mg/dL [facility] Blood 04/16/2025 5:58 AM CDT 04/16/2025 6:45 AM CDT Blake Peña NP LAB BLOOD ORDERABLES Final Result [facility] [place] [address] * Infection Prevention Shady auris PCR, surveillance Axilla/Groin (04/15/2025 12:18 PM CDT) Shady auris DNA Not Detected Not Detected [facility] Comment: Interpretive Data Testing performed by [facility] Molecular Infectious Disease Laboratory using the Lucas carlos 6800 Shady auris assay. This assay detects DNA from Shady auris using Real-Time PCR. This assay is laboratory developed and is not cleared by the [place] Food and Drug Administration. The performance characteristics have been verified by the [facility] Infectious Disease Laboratory. Axilla/Groin 04/15/2025 12:1 8 PM CDT 04/15/2025 1:09 PM CDT Narrative DULCE MARIA ARANDA - 04/16/2025 1:28 PM CDT Order placed by OPA due to ring surveillance. us Instant Order Generic Provider LAB MICROBIOLOGY - GENERAL ORDERABLES Final Result Performing Organization Address City/[facility] Co de Phone Number DULCE MARIA ARANDA [facility] [place] [address] [facility] * eGFR (04/15/2025 5:09 AM CDT) eGFR [...] 04/15/2025 5:56 AM CDT us Blake Peña PROGRAM SUPPORT CLERK LAB BLOOD ORDERABLES Final Result Performing Organization Address City/[facility]/ZIP Co de Phone Number DULCE MARIA ARANDA [facility] [place] [address] * (ABNORMAL) aPTT (04/15/2025 5:09 AM CDT) aPTT 69(H) 28 - 38 sec Comment: Interpretive Data Heparin therapeutic range: 66.0 - 100.0 seconds. Range based on correlation with therapeutic heparin activity range of 0.3 - 0.7 Units/mL. Current interpretive data was last revised on 2023. Blood 04/15/2025 5:09 AM CDT 04/15/2025 6:01 AM CDT Narrative DULCE MARIA [facility] - 04/15/2025 6:11 AM CDT STAT PTT [...] drawn peripherally (not from CVC). Libia Suarez PROGRAM SUPPORT CLERK LAB BLOOD ORDERABLES Final Re sult [facility] [place] [address] * (ABNORMAL) CBC without differential (04/15/2025 5:09 AM CDT) Pathologist [facility] WBC 7.65 3.80 - 9.90 K/cumm Hgb 12.7(L) 13.0 - 17.5 g/dL [facility] Hct 39.1 38.9 - 50.3 % [facility] Plt 162 150 - 400 K/cumm [facility] MPV 12.1 9.1 - 12.3 fL [facility] RBC 4.77 4.30 - 5.80 M/cumm [facility] MCV 82.0 81.3 - 96.4 fL [facility] MCH 26.6(L) 27.1 - 33.3 pg [facility] MCHC 32.5 32.3 - 35.7 g/dL [facility] RDW CV 15.9(H) 11.1 - 14.9 % [facility] RDW SD 47.3 35.7 - 48.1 fL [facility] NRBC abs 0.00 0.00 - 0.01 K/cumm [facility] Blood 04/15/2025 5:09 AM CDT 04/15/2025 5:56 AM CDT us Blake Peña PROGRAM SUPPORT CLERK LAB BLOOD ORDERABLES Final Result Performing Organization Address City/[facility]/ZIP Co de Phone Number [facility] Department [place] [address] * Magnesium (04/15/2025 5:09 AM CDT) [facility] Magnesium 2.5 1.4 - 2.5 mg/dL Blood 04/15/2025 5:09 AM CDT 04/15/2025 5:56 AM CDT us Yaakov Lawrence MD PhD LAB BLOOD ORDERABL ES Final Result Performing Organization Address [facility] Co de Phone Number [facility] Department [place] [address] * (ABNORMAL) Basic metabolic panel (04/15/2025 5:09 AM CDT) [facility] Sodium 133(L) 135 - 145 mmol/L Potassium, pl 4.3 3.3 - 4.9 mmol/L [facility] Chloride 97 97 - 110 mmol/L [facility] CO2 27 22 - 32 mmol/L [facility] Anion gap 9 2 - 15 mmol/L [facility] BUN 30(H) 6 - 25 mg/dL [facility] Creatinine 1.34(H) 0.80 - 1.30 mg/dL [facility] Glucose 101 70 - 199 mg/dL [facility] Comment: Interpretive Data Fasting glucose >/= 126 [...] 2022. Calcium 9.6 8.5 - 10.3 mg/dL [facility] Blood 04/15/2025 5:09 AM CDT 04/15/2025 5:56 AM CDT Blake Peña PROGRAM SUPPORT CLERK LAB BLOOD ORDERABLES Final Result Performing Organization Address [facility] Co de Phone Number [facility] [place] [address] * (ABNORMAL) aPTT (04/14/2025 4:47 PM CDT) aPTT 82(H) 28 - 38 sec Comment: Interpretive Data Heparin therapeutic range: 66.0 - 100.0 seconds. Range based on correlation with therapeutic heparin activity range of 0.3 - 0.7 Units/mL. Current interpretive data was last revised on 2023. Blood 04/14/2025 4:47 PM CDT 04/14/2025 5:22 PM CDT us Araceli Romero PROGRAM SUPPORT CLERK LAB BLOOD ORDERABLES Fin al Result Performing Organization Address [facility] Co de Phone Number [facility] [place] [address] * (ABNORMAL) aPTT (04/14/2025 11:34 AM CDT) aPTT 76(H) 28 - 38 sec Comment: Interpretive Data Heparin therapeutic range: 66.0 - 100.0 seconds. Range based on correlation with therapeutic heparin activity range of 0.3 - 0.7 Units/mL. Current interpretive data was last revised on 2023. Blood 04/14/2025 11:3 4 AM CDT 04/14/2025 12:24 PM CDT Araceli Romero PROGRAM SUPPORT CLERK LAB BLOOD ORDERABLES Fin al Result Performing Organization Address [facility] Co de Phone Number [facility] [place] [address] * (ABNORMAL) eGFR (04/14/2025 4:00 AM CDT) [...] 04/14/2025 4:45 AM CDT us Blake Peña PROGRAM SUPPORT CLERK LAB BLOOD ORDERABLES Final Result Performing Organization Address [facility]/ZIP Co de Phone Number [facility] [place] [address] * (ABNORMAL) aPTT (04/14/2025 4:00 AM CDT) aPTT 63(H) 28 - 38 sec Comment: Interpretive Data Heparin therapeutic range: 66.0 - 100.0 seconds. Range based on correlation with therapeutic heparin activity range of 0.3 - 0.7 Units/mL. Current interpretive data was last revised on 2023. Blood 04/14/2025 4:00 AM CDT 04/14/2025 4:41 AM CDT Medina Mitchell MD PhD LAB BLOOD ORDERABLES Fi nal Result Performing Organization Address [facility]/ZIP Co de Phone Number [facility] [place] [address] * (ABNORMAL) CBC without differential (04/14/2025 4:00 AM CDT) [facility] WBC 7.11 3.80 - 9.90 K/cumm Hgb 12.6(L) 13.0 - 17.5 g/dL [facility] Hct 38.3(L) 38.9 - 50.3 % [facility] Plt 160 150 - 400 K/cumm [facility] MPV 11.8 9.1 - 12.3 fL [facility] RBC 4.66 4.30 - 5.80 M/cumm [facility] MCV 82.2 81.3 - 96.4 fL [facility] MCH 27.0(L) 27.1 - 33.3 pg [facility] MCHC 32.9 32.3 - 35.7 g/dL [facility] RDW CV 15.9(H) 11.1 - 14.9 % [facility] RDW SD 46.9 35.7 - 48.1 fL [facility] NRBC abs 0.00 0.00 - 0.01 K/cumm [facility] Blood 04/14/2025 4:00 AM CDT 04/14/2025 4:45 AM CDT us Blake Peña PROGRAM SUPPORT CLERK LAB BLOOD ORDERABLES Final Result Performing Organization Address [facility]/ZIP Co de Phone Number [facility] Department [place] [address] * (ABNORMAL) Basic metabolic panel (04/14/2025 4:00 AM CDT) Sodium 136 135 - 145 mmol/L Potassium, pl 4.2 3.3 - 4.9 mmol/L [facility] Chloride 97 97 - 110 mmol/L [facility] CO2 29 22 - 32 mmol/L [facility] Anion gap 10 2 - 15 mmol/L [facility] BUN 30(H) 6 - 25 mg/dL [facility] Creatinine 1.45(H) 0.80 - 1.30 mg/dL [facility] Glucose 97 70 - 199 mg/dL [facility] Comment: Interpretive Data Fasting glucose >/= 126 [...] 2022. Calcium 9.5 8.5 - 10.3 mg/dL [facility] Blood 04/14/2025 4:00 AM CDT 04/14/2025 4:45 AM CDT Blake Peña NP LAB BLOOD ORDERABLES Final Result [facility] [place] [address] * (ABNORMAL) aPTT (04/13/2025 5:04 AM CDT) aPTT 68(H) 28 - 38 sec Comment: Interpretive Data Heparin therapeutic range: 66.0 - 100.0 seconds. Range based on correlation with therapeutic heparin activity range of 0.3 - 0.7 Units/mL. Current interpretive data was last revised on 2023. Blood 04/13/2025 5:04 AM CDT 04/13/2025 5:55 AM CDT Elmira ARANDA - 04/13/2025 6:19 AM CDT STAT PTT [...] NP LAB BLOOD ORDERABLES Final Re sult [employer] [facility] [place] [address] * eGFR (04/13/2025 4:30 AM CDT) eGFR 67 >=60 mL/min/1. 73 [...] 04/13/2025 5:29 AM CDT us Blake Peña PROGRAM SUPPORT CLERK LAB BLOOD ORDERABLES Final Result Performing Organization Address [facility] Co de Phone Number [employer] [facility] [place] [employer] [place] [address] * (ABNORMAL) CBC without differential (04/13/2025 4:30 AM CDT) [facility] WBC 7.76 3.80 - 9.90 K/cumm Hgb 12.9(L) 13.0 - 17.5 g/dL [facility] Hct 39.4 38.9 - 50.3 % [facility] Plt 160 150 - 400 K/cumm [facility] MPV 11.6 9.1 - 12.3 fL [facility] RBC 4.74 4.30 - 5.80 M/cumm [facility] MCV 83.1 81.3 - 96.4 fL [facility] MCH 27.2 27.1 - 33.3 pg [facility] MCHC 32.7 32.3 - 35.7 g/dL [facility] RDW CV 15.6(H) 11.1 - 14.9 % [facility] RDW SD 46.6 35.7 - 48.1 fL [facility] NRBC abs 0.00 0.00 - 0.01 K/cumm [facility] Blood 04/13/2025 4:30 AM CDT 04/13/2025 5:30 AM CDT us Blake Peña PROGRAM SUPPORT CLERK LAB BLOOD ORDERABLES Final Result Performing Organization Address City/[facility]/ZIP Co de Phone Number [employer] [facility] [facility] [place] [address] * (ABNORMAL) Basic metabolic panel (04/13/2025 4:30 AM CDT) Pathologist [facility] Sodium 136 135 - 145 mmol/L Potassium, pl 4.2 3.3 - 4.9 mmol/L [facility] Chloride 97 97 - 110 mmol/L [facility] CO2 27 22 - 32 mmol/L [facility] Anion gap 12 2 - 15 mmol/L [facility] BUN 29(H) 6 - 25 mg/dL [facility] Creatinine 1.24 0.80 - 1.30 mg/dL [facility] Glucose 103 70 - 199 mg/dL [facility] Comment: Interpretive Data Fasting glucose >/= 126 [...] 2022. Calcium 9.7 8.5 - 10.3 mg/dL [facility] Blood 04/13/2025 4:30 AM CDT 04/13/2025 5:29 AM CDT Blake Peña PROGRAM SUPPORT CLERK LAB BLOOD ORDERABLES Final Result [facility] [place] [address] * Infection Prevention Shady auris PCR, surveillance Axilla/Groin (04/12/2025 4:21 AM CDT) Shady auris DNA Not Detected Not Detected [facility] Comment: Interpretive Data Testing performed by [facility] Molecular Infectious Disease Laboratory using the Lucas carlos 6800 Shady auris assay. This assay detects DNA from Shady auris using Real-Time PCR. This assay is laboratory developed and is not cleared by the [place] Food and Drug Administration. The performance characteristics have been verified by the [facility] Molecular Infectious Disease Laboratory. Axilla/Groin 04/12/2025 4:21 AM CDT 04/12/2025 5:42 AM CDT Narrative [employer] [facility] [facility] ARANDA - 04/12/2025 1:32 PM CDT Order placed by OPA due to ring surveillance. us Instant Order Generic Provider LAB MICROBIOLOGY - GENERAL ORDERABLES Final Result Performing Organization Address [facility] Co de Phone Number [facility] [place] [address] [facility] * eGFR (04/12/2025 4:21 AM CDT) eGFR [...] 04/12/2025 4:50 AM CDT us Blake Peña PROGRAM SUPPORT CLERK LAB BLOOD ORDERABLES Final Result Performing Organization Address City/[facility]/ZIP Co de Phone Number DULCE MARIA ARANDA [facility] [place] [address] * (ABNORMAL) aPTT (04/12/2025 4:21 AM CDT) aPTT 80(H) 28 - 38 sec Comment: Interpretive Data Heparin therapeutic range: 66.0 - 100.0 seconds. Range based on correlation with therapeutic heparin activity range of 0.3 - 0.7 Units/mL. Current interpretive data was last revised on 2023. Blood 04/12/2025 4:21 AM CDT 04/12/2025 4:50 AM CDT Narrative [facility] - 04/12/2025 5:06 AM CDT STAT PTT [...] drawn peripherally (not from CVC). Libia Suarez PROGRAM SUPPORT CLERK LAB BLOOD ORDERABLES Final Re sult [facility] [place] [address] * (ABNORMAL) CBC without differential (04/12/2025 4:21 AM CDT) WBC 7.37 3.80 - 9.90 K/cumm Hgb 13.2 13.0 - 17.5 g/dL [facility] Hct 40.6 38.9 - 50.3 % [facility] Plt 159 150 - 400 K/cumm [facility] MPV 11.5 9.1 - 12.3 fL [facility] RBC 4.90 4.30 - 5.80 M/cumm [facility] MCV 82.9 81.3 - 96.4 fL [facility] MCH 26.9(L) 27.1 - 33.3 pg [facility] MCHC 32.5 32.3 - 35.7 g/dL [facility] RDW CV 15.7(H) 11.1 - 14.9 % [facility] RDW SD 46.6 35.7 - 48.1 fL [facility] NRBC abs 0.00 0.00 - 0.01 K/cumm [facility] Blood 04/12/2025 4:21 AM CDT 04/12/2025 4:50 AM CDT us Blake Peña PROGRAM SUPPORT CLERK LAB BLOOD ORDERABLES Final Result [facility] [place] [address] * (ABNORMAL) Basic metabolic panel (04/12/2025 4:21 AM CDT) Pathologist [facility] Sodium 135 135 - 145 mmol/L Potassium, pl 4.3 3.3 - 4.9 mmol/L [facility] Chloride 97 97 - 110 mmol/L [facility] CO2 26 22 - 32 mmol/L [facility] Anion gap 12 2 - 15 mmol/L [facility] BUN 29(H) 6 - 25 mg/dL [facility] Creatinine 1.34(H) 0.80 - 1.30 mg/dL [facility] Glucose 115 70 - 199 mg/dL [facility] Comment: Interpretive Data Fasting glucose >/= 126 [...] 2022. Calcium 10.0 8.5 - 10.3 mg/dL [facility] Blood 04/12/2025 4:21 AM CDT 04/12/2025 4:50 AM CDT Blake Peña PROGRAM SUPPORT CLERK LAB BLOOD ORDERABLES Final Result Performing Organization Address [facility]/ZIP Co de Phone Number [facility] [place] [address] * US Guided Thyroid Fine Needle Aspiration [...] needles. The samples were handed to the international controller. The patient's skin was cleaned and dressed. [...] needles. The samples were handed to the international controller. The patient's skin was cleaned and dressed. [...] signed by: Agus Pittman M.D. Araceli Romero PROGRAM SUPPORT CLERK IMG US PROCEDURES Final Result * (ABNORMAL) [...] CDT 04/11/2025 7:00 AM CDT Blake Peña PROGRAM SUPPORT CLERK LAB BLOOD ORDERABLES Final Result Performing Organization Address [facility] Co de Phone Number [employer] [facility] [facility] [place] [address] * (ABNORMAL) aPTT (04/11/2025 5:43 AM CDT) Pathologist [facility] aPTT 89(H) 28 - 38 sec Comment: Interpretive Data Heparin therapeutic range: 66.0 - 100.0 seconds. Range based on correlation with therapeutic heparin activity range of 0.3 - 0.7 Units/mL. Current interpretive data was last revised on 2023. Blood 04/11/2025 5:43 AM CDT 04/11/2025 6:51 AM CDT Narrative [facility] - 04/11/2025 7:20 AM CDT STAT PTT [...] peripherally (not from CVC). us Libia Suarez PROGRAM SUPPORT CLERK LAB BLOOD ORDERABLES Final Re sult Performing Organization Address City/[facility]/ZIP Co de Phone Number [facility] [place] [address] * (ABNORMAL) CBC without differential (04/11/2025 5:43 AM CDT) [facility] WBC 7.64 3.80 - 9.90 K/cumm Hgb 12.8(L) 13.0 - 17.5 g/dL [facility] Hct 39.5 38.9 - 50.3 % [facility] Plt 173 150 - 400 K/cumm [facility] MPV 11.6 9.1 - 12.3 fL [facility] RBC 4.77 4.30 - 5.80 M/cumm [facility] MCV 82.8 81.3 - 96.4 fL [facility] MCH 26.8(L) 27.1 - 33.3 pg [facility] MCHC 32.4 32.3 - 35.7 g/dL [facility] RDW CV 15.5(H) 11.1 - 14.9 % [facility] RDW SD 46.7 35.7 - 48.1 fL [facility] NRBC abs 0.00 0.00 - 0.01 K/cumm [facility] Blood 04/11/2025 5:43 AM CDT 04/11/2025 7:05 AM CDT us Blake Peña PROGRAM SUPPORT CLERK LAB BLOOD ORDERABLES Final Result Performing Organization Address City/[facility]/ZIP Co de Phone Number [facility] [place] [address] * Magnesium (04/11/2025 5:43 AM CDT) Pathologist [facility] Magnesium 2.1 1.4 - 2.5 mg/dL Blood 04/11/2025 5:43 AM CDT 04/11/2025 7:00 AM CDT Blake Peña PROGRAM SUPPORT CLERK LAB BLOOD ORDERABLES Final Result Performing Organization Address City/[facility]/ZIP Co de Phone Number [facility] [place] [address] * (ABNORMAL) Basic metabolic panel (04/11/2025 5:43 AM CDT) Pathologist [facility] Sodium 137 135 - 145 mmol/L Potassium, pl 4.1 3.3 - 4.9 mmol/L [facility] Chloride 97 97 - 110 mmol/L [facility] CO2 28 22 - 32 mmol/L [facility] Anion gap 12 2 - 15 mmol/L [facility] BUN 33(H) 6 - 25 mg/dL [facility] Creatinine 1.62(H) 0.80 - 1.30 mg/dL [facility] Glucose 102 70 - 199 mg/dL [facility] Comment: Interpretive Data Fasting glucose >/= 126 [...] 2022. Calcium 9.0 8.5 - 10.3 mg/dL [facility] Blood 04/11/2025 5:43 AM CDT 04/11/2025 7:00 AM CDT Blake Peña NP LAB BLOOD ORDERABLES Final Result [facility] [place] [address] * Cytology (04/11/2025 12:00 AM CDT) Fluid (Thyroid Gland (Cytology)) 04/11/2025 3:23 PM CDT Comment:Right mid thyroid/is thmus nodule Narrative PATHOLOGY [facility] - 04/12/2025 1:31 PM CDT EPIC results best viewed via link to PDF [facility]ma Mat[facility] [place] [address] Note to Patients: This report may contain [...] WITH ADDENDUM Patient Name: GOSIA ZUNIGA Gender: M : 1965 (Age: 59) Address: [address] [place] [id number] Hospital #: [id number] Taken:04/11/2025 Received:04/11/2025 Reported: 04/12/2025 Patient Type: [facility] Inpatient Service: Cardiology Location: [address] Physician(s): Kalin Mcqueen MD FINAL DIAGNOSIS [...] results to be issued in an addendum. [facility]/04/12/2025 13:31 By this signature, I attest that the above diagnosis is based upon my personal examination of the slides(and/or other material indicated in the diagnosis). Juanito Perez DO Report Electronically Reviewed and Signed Out By Juanito Perez DO 04/12/2025 13:31:40 Carlos Rosario [facility] Gross Description A. Thyroid, right isthmus lobe, [...] Pathology and Flow Cytometry Departments at [facility] as part of an ongoing supplier quality engineer program and in compliance with federally mandated [...] Pathology and Flow Cytometry Departments of [facility]. It has not been cleared or approved by the U. S. Food and Drug Administration. Araceli Romero PROGRAM SUPPORT CLERK LAB CYTOLOGY ORDERABLES Final Result PATHOLOGY [facility] 3rd Floor [place], [place] [phone] * Infection Prevention Shady auris PCR, surveillance Axilla/Groin (04/10/2025 12:30 PM CDT) Shady auris DNA Not Detected Not Detected [facility] Comment: Interpretive Data Testing performed by [facility] Molecular Infectious Disease Laboratory using the Lucas carlos [email or web address] Shady auris assay. This assay detects DNA from Shady auris using Real-Time PCR. This assay is laboratory developed and is not cleared by the [facility] Food and Drug Administration. The performance characteristics have been verified by the [facility] Molecular Infectious Disease Laboratory. Axilla/Groin 04/10/2025 12:3 0 PM CDT 04/10/2025 1:28 PM CDT Sathish Gongora MD LAB MICROBIOLOGY - GENERAL ORDER LINH Final Result Performing Organization Address City/[facility]/ZIP Co de Phone Number [facility] Department [place] [address] [facility] * Thyroid (04/10/2025 12:04 PM CDT) Anatomical [...] by: Swapna Muniz M.D. us Elinor Barone PROGRAM SUPPORT CLERK IMG US PROCEDURES Final Re sult * [...] 04/10/2025 5:20 AM CDT us Blake Peña PROGRAM SUPPORT CLERK LAB BLOOD ORDERABLES Final Result [facility] [place] [address] * (ABNORMAL) aPTT (04/10/2025 4:33 AM CDT) aPTT 85(H) 28 - 38 sec Comment: Interpretive Data Heparin therapeutic range: 66.0 - 100.0 seconds. Range based on correlation with therapeutic heparin activity range of 0.3 - 0.7 Units/mL. Current interpretive data was last revised on 2023. Blood 04/10/2025 4:33 AM CDT 04/10/2025 5:29 AM CDT Narrative [facility] - 04/10/2025 5:39 AM CDT STAT PTT [...] drawn peripherally (not from CVC). Libia Suarez PROGRAM SUPPORT CLERK LAB BLOOD ORDERABLES Final Re sult [facility] [place] [address] * (ABNORMAL) CBC without differential (04/10/2025 4:33 AM CDT) WBC 8.57 3.80 - 9.90 K/cumm Hgb 12.9(L) 13.0 - 17.5 g/dL [facility] Hct 40.1 38.9 - 50.3 % [facility] Plt 170 150 - 400 K/cumm [facility] MPV 11.7 9.1 - 12.3 fL [facility] RBC 4.83 4.30 - 5.80 M/cumm [facility] MCV 83.0 81.3 - 96.4 fL [facility] MCH 26.7(L) 27.1 - 33.3 pg [facility] MCHC 32.2(L) 32.3 - 35.7 g/dL [facility] RDW CV 15.5(H) 11.1 - 14.9 % [facility] RDW SD 46.6 35.7 - 48.1 fL [facility] NRBC abs 0.00 0.00 - 0.01 K/cumm [facility] Blood 04/10/2025 4:33 AM CDT 04/10/2025 5:21 AM CDT Blake Peña PROGRAM SUPPORT CLERK LAB BLOOD ORDERABLES Final Result Performing Organization Address [facility] Co de Phone Number [facility] Department [place] [address] * Magnesium (04/10/2025 4:33 AM CDT) [facility] Magnesium 2.0 1.4 - 2.5 mg/dL Blood 04/10/2025 4:33 AM CDT 04/10/2025 5:20 AM CDT us Blake Peña PROGRAM SUPPORT CLERK LAB BLOOD ORDERABLES Final Result Performing Organization Address [facility] de Phone Number [facility] [place] [address] * (ABNORMAL) Basic metabolic panel (04/10/2025 4:33 AM CDT) [facility] Sodium 139 135 - 145 mmol/L Potassium, pl 3.7 3.3 - 4.9 mmol/L [facility] Chloride 100 97 - 110 mmol/L [facility] CO2 27 22 - 32 mmol/L [facility] Anion gap 12 2 - 15 mmol/L [facility] BUN 28(H) 6 - 25 mg/dL [facility] Creatinine 1.49(H) 0.80 - 1.30 mg/dL [facility] Glucose 108 70 - 199 mg/dL [facility] Comment: Interpretive Data Fasting glucose >/= 126 [...] 2022. Calcium 8.8 8.5 - 10.3 mg/dL [facility] Blood 04/10/2025 4:33 AM CDT 04/10/2025 5:20 AM CDT Blake Peña NP LAB BLOOD ORDERABLES Final Result [facility] [place] [address] * (ABNORMAL) Urinalysis reflex to microscopic and culture Urine (04/09/2025 5:07 PM CDT) Color, ur Straw Yellow Clarity, ur Clear Clear [facility] Specific gravity, ur 1.012 1.003 - 1.030 [facility] pH, urine 6.0 [facility] Comment: Interpretive Data U rine pH is affected by diet, medications, systemic acid-base disturbances, and renal tubular function. pH may affect urinary stone formation. For example, urine pH below 6.0 may help reduce the tendency for calcium phosphate stones and pH greater than 6.0 may reduce the tendency for uric acid stone formation. Source: [facility] Current Interpretive Data was last revised on 2017 Protein, ur ql Trace Negative [facility] Glucose, ur ql 3+(A) Negative [facility] Ketones, ur Negative Negative [facility] Bilirubin, ur Negative Negative [facility] Blood, ur Negative Negative [facility] Urobilinogen, ur <2.0 <2.0 mg/dL [facility] Nitrite, ur Negative Negative [facility] Leukocyte esterase, ur Negative Negative [facility] UA reflex comment Reflex conditions for microscopic UA and culture not met. [facility] Urine 04/09/2025 5:07 PM CDT 04/09/2025 5:41 PM CDT us Yaakov Lawrence MD PhD LAB MICROBIOLOGY - GENERAL ORDERABLES Final Result [facility] [place] [address] * XR Chest PA Lateral 2 Views [...] signed by: Miguel Angel Ng M.D. us Yaaokv Lawrence MD PhD IMG XR PROCEDURES Final Result * Antibody identification (04/09/2025 3:23 PM CDT) Antibody ID 1 Anti-CD38 Comment:Panreactive -CD38 on reagent RBCs reacting with anti-CD38 therapy. DTT treatment removes cell surface CD38 and allows detection of common clinically significant antibodies except those against Dilma antigens. TRANSFUSION 2015;55;[id number] Blood 04/09/2025 3:23 PM CDT 04/09/2025 3:23 PM CDT us Yaakov Lawrence MD PhD LAB BLOOD BANK WICHO T ORDERABLES Final Result [facility] [place] [address] * CT Head WO Contrast (04/09/2025 3:18 [...] HLA Antibody Screen (04/09/2025 1:06 PM CDT) [facility] HLA Antibody Screen by PRA Received Blood 04/09/2025 1:06 PM CDT 04/10/2025 9:32 AM CDT Result [facility] Yaakov Lwarence MD PhD LAB BLOOD ORDERABL ES Final Result Performing Organization Address City/[facility]/ZIP Co de Phone Number [facility] [place] [address] * (ABNORMAL) Iron profile w/ IBC (04/09/2025 1:06 PM CDT) [facility] Iron 60 50 - 150 mcg/dL TIBC 397 250 - 400 mcg/dL [facility] Transferrin saturation 15(L) 20 - 50 % [facility] Blood 04/09/2025 1:06 PM CDT 04/09/2025 1:40 PM CDT Result [facility] Yaakov Lawrence MD PhD LAB BLOOD ORDERABL ES Final Result Performing Organization Address City/State/[facility] Co de Phone Number [facility] [place] [address] * HIV 1/2 Antibody plus p24 Antigen Blood (04/09/2025 1:06 PM CDT) Pathologist [facility] HIV 1/2 ab + p24 ag Nonreactive [...] GENERAL ORDERABLES Final Result Performing Organization Address [facility] Co de Phone Number [facility] [place] [address] * (ABNORMAL) CMV, IgG Blood (04/09/2025 1:06 PM CDT) [facility] CMV IgG Positive( A) Negative Comment: [...] GENERAL ORDERABLES Final Result Performing Organization Address City/[facility] Co de Phone Number [facility] [place] [address] * Hepatitis C antibody Blood (04/09/2025 1:06 PM CDT) [facility] Hep C Ab Nonreactive Nonreactive Comment:Antibodies to HCV no t detected. Does NOT exclude the possibility of recent exposure to HCV. Current interpretive data was last revised on 22 Blood 04/09/2025 1:06 PM CDT 04/09/2025 1:35 PM CDT Yaakov Lawrence MD PhD LAB MICROBIOLOGY - GENERAL ORDERABLES Final Result Performing Organization Address City/[facility] Co de Phone Number [facility] [place] [address] * (ABNORMAL) Priscilla-Lewis virus (EBV) antibody panel Blood (04/09/2025 1:06 PM CDT) EBV nuclear Ab Positive(A) Negative Comment:Indicates the presen ce of detectable IgG antibody to EBV Nuclear Antigen. EBV VCA IgG Positive(A) Negative [facility] Comment:Indicates the presen ce of antibody; 90% of the adult population will have been infected with EBV sometime in the past. EBV VCA IgM Negative Negative [facility] Comment:No detectable IgM an tibody to EBV-VCA. A negative result indicates no current infection with EBV. If clinical suspicion of acute EBV infection is present, testing should be repeated after one week. EBV interp Past Infection [facility] Blood 04/09/2025 1:06 PM CDT 04/09/2025 1:35 PM CDT Yaakov Lawrence MD PhD LAB MICROBIOLOGY - GENERAL ORDERABLES Final Result Performing Organization Address [facility] Co de Phone Number [facility] [place] [address] * Cotinine level (04/09/2025 1:06 PM CDT) Nicotine <3.0 <3.0 ng/mL [facility] Cotinine, quant, sr <3.0 <3.0 ng/mL [facility] Comment: ADDITIONAL INFORMATION This test was developed and its performance characteristics determined by [facility] in a manner consistent with CLIA requirements. This test has not been cleared or approved by the U.S. Food and Drug Administration. Test Performed by: [facility] [address] [place] [address] Junior Engineer: Milagros Henriquez Ph.D.; CLIA# [id number] Blood 04/09/2025 1:06 PM CDT 04/09/2025 1:39 PM CDT Yaakov Lawrence MD PhD LAB BLOOD ORDERABL ES Final Result Performing Organization Address [facility] Co de Phone Number [facility] [place] [address] [facility] * Hepatitis B core antibody, total Blood (04/09/2025 1:06 PM CDT) [facility] Hep B core IgG/IgM Nonreactive Nonreactive Blood 04/09/2025 1:06 PM CDT 04/09/2025 1:35 PM CDT Result [facility] Yaakov Lawrence MD PhD LAB MICROBIOLOGY - GENERAL ORDERABLES Final Result Performing Organization Address [facility] de Phone Number [facility] MAR[facility] [place] [address] * Hepatitis C (HCV) RNA PCR, quantitative Blood (04/09/2025 1:06 PM CDT) [facility] HCV RNA result Not Detected [facility] Comment: The quantifiable range of this assay is 15 IU/mL to 100,000,000 IU/mL (1.18 log IU/mL to 8.00 log IU/mL). Testing was performed by the CAR[employer]OS 6800 HCV Test ([employer] Testing performed at [facility] Current Interpretive Data was last revised on 2021 Blood 04/09/2025 1:06 PM CDT 04/09/2025 1:22 PM CDT Result [facility] Yaakov Lawrence MD PhD LAB MICROBIOLOGY - GENERAL ORDERABLES Final Result Performing Organization Address [facility] Co de Phone Number [facility] [place] [address] BJ * HSV 2 IgG Antibody Blood (04/09/2025 1:06 PM CDT) HSV 2 IgG Nonreactive Nonreactive Comment: Interpretive [...] GENERAL ORDERABLES Final Result Performing Organization Address [facility] [place] [address] * (ABNORMAL) HSV 1 IgG Antibody Blood (04/09/2025 1:06 PM CDT) Pathologist [facility] HSV 1 IgG Reactive( A) Nonreactive Comment: [...] GENERAL ORDERABLES Final Result Performing Organization Address City/[facility] Co de Phone Number [facility] [place] [address] * RPR Blood (04/09/2025 1:06 PM CDT) RPR Nonreactive Nonreactive Blood 04/09/2025 1:06 PM CDT 04/09/2025 1:41 PM CDT Yaakov Lawrence MD PhD LAB MICROBIOLOGY - GENERAL ORDERABLES Final Result Performing Organization Address City/[facility] [place] [address] * Hepatitis B surface antibody (immune status) Blood (04/09/2025 1:06 PM CDT) HBsAb (immune status) Nonreactive Comment:This result is consi stent with a lack of immunity to Hepatitis B Virus when used in the setting of routine screening. Current interpretative data was last revised on 22 Blood 04/09/2025 1:06 PM CDT 04/09/2025 1:35 PM CDT Yaakov Lawrence MD PhD LAB MICROBIOLOGY - GENERAL ORDERABLES Final Result Performing Organization Address [facility] [place] [address] * Hepatitis B Surface Antigen Blood (04/09/2025 1:06 PM CDT) HepBsAg Nonreactive Nonreactive Blood 04/09/2025 1:06 PM CDT 04/09/2025 1:35 PM CDT Yaakov Lawrence MD PhD LAB MICROBIOLOGY - GENERAL ORDERABLES Final Result Performing Organization Address [facility] Co de Phone Number [facility] [place] [address] * (ABNORMAL) Type and screen (04/09/2025 1:06 PM CDT) ABO Rh O Positive Poppy, indirect Positive(A) [facility] Blood 04/09/2025 1:06 PM CDT 04/09/2025 1:32 PM CDT Narrative [facility] - 04/09/2025 3:23 PM CDT Has the patient had Daratumumab or Isatuximab in the past 6 months?->Unknown Yaakov Lawrence MD PhD LAB BLOOD BANK WICHO T ORDERABLES Final Result Performing Organization Address City/[facility]/ZIP Co de Phone Number [facility] [place] [address] * Varicella Zoster IgG antibody Blood (04/09/2025 1:06 PM CDT) VZV IgG Reactive Reactive Comment:Reactive: Results treadwell ggest response to immunization or prior exposure to the virus. Blood 04/09/2025 1:06 PM CDT 04/09/2025 1:40 PM CDT Yaakov Lawrence MD PhD LAB MICROBIOLOGY - GENERAL ORDERABLES Final Result Performing Organization Address City/[facility] Co de Phone Number [facility] [place] [address] * TSH (04/09/2025 1:06 PM CDT) Thyroid Stimulating Hormone 1.35 0.30 - 4.20 mcIUnit/mL Blood 04/09/2025 1:06 PM CDT 04/09/2025 1:40 PM CDT Yaakov Lawrence MD PhD LAB BLOOD ORDERABL ES Final Result Performing Organization Address City/[facility] Co de Phone Number [facility] [place] [address] * PSA diagnostic (04/09/2025 1:06 PM CDT) [...] ORDERABL ES Final Result Performing Organization Address [facility] de Phone Number [facility] [place] [address] * (ABNORMAL) Hemoglobin A1c (04/09/2025 1:06 PM CDT) Pathologist [facility] Hgb A1C 7.1(H) 4.0 - 5.6 % Estimated Average Glucose 157 mg/dL [facility] Comment: The ADA recommends reporting an estimated [...] ORDERABL ES Final Result Performing Organization Address [facility] Co de Phone Number [facility] [place] [address] * Ferritin (04/09/2025 1:06 PM CDT) Ferritin 43 30 - 400 ng/mL Blood 04/09/2025 1:06 PM CDT 04/09/2025 1:40 PM CDT us Yaakov Lawrence MD PhD LAB BLOOD ORDERABL ES Final Result [facility] [place] [address] * Lipid panel (04/09/2025 1:06 PM CDT) [...] revised on 2018. Triglycerides 76 <=149 mg/dL [facility] Comment: Interpretive Data Ages < or = [...] 2018. HDL 45 >=40 mg/dL [facility] Comment: Interpretive Data Ages < or = [...] on 2018. LDL, calculated 81 <=129 mg/dL [employer] [facility] [employer] [facility] [facility] Comment: Interpretive Data Ages < or = [...] NCEP Expert Panel. Circulation 2004;110:227 3. Cristino Ruff et al. MARYANNE Cardiol. 2019March 21;5(5):540-548. doi: 10.1001/jamacardio.2020.0013 Current Interpretive Data was last revised on 2024. Non-HDL Cholesterol 96 mg/dL [facility] Comment: Interpretive Data Ages < or = [...] last revised on 2018. Chol/HDL ratio 3 [facility] Blood 04/09/2025 1:06 PM CDT 04/09/2025 1:40 PM CDT Yaakov Lawrence MD PhD LAB BLOOD ORDERABL ES Final Result [facility] [place] [address] * HLA Antibody Screen by PRA or SAB per Schedule (Class I and Class II) (04/09/2025 12:59 PM CDT) Blood 04/09/2025 12:5 9 PM CDT Narrative [facility] - A&P TECHNICIAN Sample received in lab. Single Antigen Antibody Screen and PRA Screen ordered. Yaakov Lawrence MD PhD LAB BLOOD ORDERABL ES Final Result Performing Organization Address [facility]/ZIP Co de Phone Number [facility] * HLA [...] a method developed and validated by the [facility] HLA laboratory based on an FDA- approved IVD kit (LABScreen PRA, [employer], [place], [place]). Interpretive comments: The percentage of beads with MFI > 750 is reported, which indicates the percentage of donor population estimated to be incompatible with the patient tested. PRA > 0% is consistent with alloimmunization to HLA. Testing performed at the [facility] HLA Laboratory, [address] [address], 5th floor, [facility], [place], [address]. [facility] # [id number]. Myrna Pendleton, Ph.D., Blindstitch Lining Feller, HLA Laboratory Zach Bermudez M.D., Ph.D., Cash Posting Representative, HLA Laboratory Dona Cota, Ph.D., CLIA Cash Posting Representative, [facility] Clinical Laboratories Current methodology and interpretive comments last revised on 03/15/2018. us Yaakov Lawrence MD PhD LAB BLOOD [...] a method developed and validated by the [facility] HLA laboratory based on an FDA-approved IVD kit (LABScreen Single-Antigen, [employer], [place], [place]). All patient serum samples are pretreated with EDTA before the screen to prevent complement interference. Additional serum treatments, such as adsorption and DTT treatment, may be performed as indicated. Interpretive comments: Low risk: MFI [id number]. Moderate risk: MFI [id number]. Increased risk: MFI >/= 5000. The presence [...] to avoid. Testing performed at the [facility] HLA Laboratory, [address] [place] [address], 5th floor, [place], [address]. [facility] # [id number]. Myrna Pendleton, Ph.D., Blindstitch Lining Feller, HLA Laboratory Zach Bermudez M.D., Ph.D., Cash Posting Representative, HLA Laboratory Dona Cota, Ph.D., [place] Cash Posting Representative, [facility] Clinical Laboratories Current methodology and interpretive comments last revised on 12/16/2022. us Yaakov Lawrence MD PhD LAB BLOOD ORDERABL ES Final Result HISTOTRAC * Pulmonary Function Test -[facility]; Standard; Spirometry, Spirometry w/bronchodilator, DLCO and Lung Volumes (04/09/2025 11:50 AM CDT) FVC PRE 3.12 L [facility] FVC %PRE PRED 66 % [facility] FVC POST 3.16 L [facility] FVC %POST PRED 67 % [facility] FEV1 PRE 2.45 L [facility] FEV1 %PRE PRED 68 % [facility] FEV1 POST 2.66 L [facility] FEV1 %POST PRED 74 % [facility] FEV1/FVC PRE 78.6 % [facility] FEV1/FVC POST 84.2 % [facility] FRC PL PRE 3.12 L [facility] FRC PL %PRE PRED 80 % [facility] RV PRE 1.88 L [facility] RV %PRE PRED 79 % [facility] TLC PRE 5.18 L [facility] TLC %PRE PRED 69 % [facility] DLCO PRE 20.2 ml/min/mmH g [facility] DLCO %PRE PRED 69 % [facility] Anatomical Region Laterality Modality PFT 04/09/2025 11:3 0 AM CDT Narrative 04/09/2025 12:26 PM CDT Patient Location:->[facility] Main [place] Standard:->Spirometry, Spirometry w/bronchodilator, DLCO and Lung Volumes [...] and %HbO2 is age dependent. However, the [facility] Pulmonary Function Laboratory defines hypoxemia as a PaO2 <56 mm Hg or a %HbO2 <89%. Starting on November of 2024 the [facility] Pulmonary Function Laboratory utilizes race neutral GLI Global normative equations. us Blake Peña PROGRAM SUPPORT CLERK PFT ORDERABLES Final Resu lt * US Carotids Duplex Bilateral (04/09/2025 10:37 AM CDT) Anatomical Region Laterality Modality Vascular Bilateral Ultrasound 04/09/2025 9:16 AM CDT Narrative 04/09/2025 9:09 PM CDT [facility] of Medicine - Department of Vascular Surgery, Vascular Laboratory [address] [place] [address] Carotid Duplex Ultrasound Report Patient Name: GOSIA ZUNIGA : 1965 (59y 11m) Study Date: 04/09/2025 9:16:16 AM Gender: M Tech: MICHAEL Location: [id number] Ref Provider: BLAKE PEÑA Quality: Adequate Order [...] LT VERT PSV 51 cm/sec FINDINGS: Performing Professor Of Psychology: Erlin Ludwig RVT. Rt Internal Carotid Artery: [...] Procedure Note Imtiaz Rodriguez MD - 04/09/2025 [facility] - Department of Vascular Surgery,Vascular Laboratory [address] [place] [address] Carotid Duplex Ultrasound Report Patient Name: GOSIA ZUNIGA : 1965 (59y 11m) Study Date: 04/09/2025 9:16:16 AM Gender: M Tech: MICHEAL Location: [id number] Ref Provider: BLAKE PEÑA Quality: Adequate Order [...] LT VERT PSV 51 cm/sec FINDINGS: Performing Professor Of Psychology: Erlin Ludwig RVT. Rt Internal Carotid Artery: [...] 04/09/2025 8:15:13 PM CDT us Blake Peña NP IMG US PROCEDURES Final Re sult * US SOURAV (04/09/2025 10:12 AM CDT) Anatomical Region Laterality Modality Vascular N/A Ultrasound 04/09/2025 9:12 AM CDT Narrative 04/09/2025 11:05 AM CDT [facility] - Department of Vascular Surgery, Vascular Laboratory [address] [place] [address] Lower Extremity Arterial Doppler Report Patient Name: GOSIA ZUNIGA : 1965 Study Date: 04/09/2025 9:12:00 AM Gender: M Tech: Kaylah Boswell RVT, RDMS Location: [id number] Ref Provider: BLAKE PEÑA Quality: Adequate Order Provider: BLAKE PEÑA PROCEDURES: Arterial Report: Ankle - Brachial Index Doppler exam. INDICATIONS: Encounter for Other Preprocedural Exam. MEASUREMENTS: Right Value Units Left Value Units Rt Brachial Pressure 93 mmHg Lt Brachial Pressure 99 mmHg Rt STEAM PRESSER Pressure 126 mmHg Lt STEAM PRESSER Pressure 113 mmHg Rt DPA Pressure 110 mmHg Lt DPA Pressure 110 mmHg Rt 1st Digit Pressure 109 mmHg Lt 1st Digit Pressure 80 mmHg Rt PT SOURAV Resting 1.27 Lt PT SOURAV Resting 1.14 Rt AT SOURAV Resting 1.11 Lt AT SOURAV Resting 1.11 Rt Digit/Arm Index 1.1 Lt Digit/Arm Index 0.81 Right Value Units Left Value Units FINDINGS: Performing Professor Of Psychology: Kaylah Boswell RDMS, RVT. Right Posterior Tibial [...] Procedure Note Imtiaz Rodriguez MD - 04/09/2025 [facility] - Department of Vascular Surgery,Vascular Laboratory [address] [place] [address] Lower Extremity Arterial Doppler Report Patient Name: GOSIA ZUNIGA : 1965 Study Date: 04/09/2025 9:12:00 AM Gender: M Tech: Kaylah Boswell Nara, [facility] Location: [id number] Ref Provider: BLAKE PEÑA Quality: Adequate Order Provider: BLAKE PEÑA PROCEDURES: Arterial Report: Ankle - Brachial Index Doppler exam. INDICATIONS: Encounter for Other Preprocedural Exam. MEASUREMENTS: Right Value Units Left Value Units Rt Brachial Pressure 93 mmHg Lt Brachial Pressure 99 mmHg Rt STEAM PRESSER Pressure 126 mmHg Lt STEAM PRESSER Pressure 113 mmHg Rt DPA Pressure 110 mmHg Lt DPA Pressure 110 mmHg Rt 1st Digit Pressure 109 mmHg Lt 1st Digit Pressure 80 mmHg Rt PT SOURAV Resting 1.27 Lt PT SOURAV Resting 1.14 Rt AT SOURAV Resting 1.11 Lt AT SOURAV Resting 1.11 Rt Digit/Arm Index 1.1 Lt Digit/Arm Index 0.81 Right Value Units Left Value Units FINDINGS: Performing Professor Of Psychology: Kaylah Boswell RDMS, EZT. Right Posterior Tibial Artery Analysis: The posterior [...] Signed By: Imtiaz Rodriguez MD, FACS 04/09/2025 10:27:28 AM CDT us Blake Peña PROGRAM SUPPORT CLERK IMG US PROCEDURES Final Re sult * (ABNORMAL) aPTT (04/09/2025 8:11 AM CDT) aPTT 89(H) 28 - 38 sec Comment: Interpretive Data Heparin therapeutic range: 66.0 - 100.0 seconds. Range based on correlation with therapeutic heparin activity range of 0.3 - 0.7 Units/mL. Current interpretive data was last revised on 2023. Blood 04/09/2025 8:11 AM CDT 04/09/2025 9:01 AM CDT Narrative DULCE MARIA ARANDA - 04/09/2025 9:23 AM CDT STAT PTT [...] peripherally (not from CVC). us Libia Suarez PROGRAM SUPPORT CLERK LAB BLOOD ORDERABLES Final Re sult DULCE MARIA [facility] [place] [address] * eGFR (04/09/2025 1:45 AM CDT) eGFR [...] 04/09/2025 2:14 AM CDT us Blake Peña PROGRAM SUPPORT CLERK LAB BLOOD ORDERABLES Final Result Performing Organization Address [facility] Co de Phone Number [facility] [place] [address] * (ABNORMAL) aPTT (04/09/2025 1:45 AM CDT) aPTT 87(H) 28 - 38 sec Comment: Interpretive Data Heparin therapeutic range: 66.0 - 100.0 seconds. Range based on correlation with therapeutic heparin activity range of 0.3 - 0.7 Units/mL. Current interpretive data was last revised on 2023. Blood 04/09/2025 1:45 AM CDT 04/09/2025 2:46 AM CDT Narrative [facility] - 04/09/2025 2:56 AM CDT STAT PTT [...] peripherally (not from CVC). us Libia Suarez PROGRAM SUPPORT CLERK LAB BLOOD ORDERABLES Final Re sult Performing Organization Address [facility]/ZIP Co de Phone Number [facility] [place] [address] * (ABNORMAL) CBC without differential (04/09/2025 1:45 AM CDT) [facility] WBC 10.44(H) 3.80 - 9.90 K/cumm Hgb 13.8 13.0 - 17.5 g/dL [facility] Hct 42.5 38.9 - 50.3 % [facility] Plt 180 150 - 400 K/cumm [facility] MPV 11.3 9.1 - 12.3 fL [facility] RBC 5.13 4.30 - 5.80 M/cumm [facility] MCV 82.8 81.3 - 96.4 fL [facility] MCH 26.9(L) 27.1 - 33.3 pg [facility] MCHC 32.5 32.3 - 35.7 g/dL [facility] RDW CV 15.6(H) 11.1 - 14.9 % [facility] RDW SD 46.6 35.7 - 48.1 fL [facility] NRBC abs 0.00 0.00 - 0.01 K/cumm [facility] Blood 04/09/2025 1:45 AM CDT 04/09/2025 2:14 AM CDT us Blake Peña PROGRAM SUPPORT CLERK LAB BLOOD ORDERABLES Final Result Performing Organization Address City/[facility] Co de Phone Number [facility] [place] [address] * Magnesium (04/09/2025 1:45 AM CDT) [facility] Magnesium 2.2 1.4 - 2.5 mg/dL Blood 04/09/2025 1:45 AM CDT 04/09/2025 2:14 AM CDT Blake Peña PROGRAM SUPPORT CLERK LAB BLOOD ORDERABLES Final Result Performing Organization Address [facility] Co de Phone Number [facility] Department [place] [address] * (ABNORMAL) Basic metabolic panel (04/09/2025 1:45 AM CDT) Sodium 140 135 - 145 mmol/L Potassium, pl 3.9 3.3 - 4.9 mmol/L [facility] Chloride 104 97 - 110 mmol/L [facility] CO2 26 22 - 32 mmol/L [facility] Anion gap 10 2 - 15 mmol/L [facility] BUN 28(H) 6 - 25 mg/dL [facility] Creatinine 1.35(H) 0.80 - 1.30 mg/dL [facility] Glucose 118 70 - 199 mg/dL [facility] Comment: Interpretive Data Fasting glucose >/= 126 [...] 2022. Calcium 9.6 8.5 - 10.3 mg/dL [facility] Blood 04/09/2025 1:45 AM CDT 04/09/2025 2:14 AM CDT Blake Pñea PROGRAM SUPPORT CLERK LAB BLOOD ORDERABLES Final Result [facility] [place] [address] * CT Chest Abdomen Pelvis WO Contrast [...] signed by: Dmitry Armas MD, PHD us Blake Peña PROGRAM SUPPORT CLERK IMG CT PROCEDURES Final Re sult * [...] 6:40 PM CDT 04/08/2025 7:30 PM CDT us Blaek Peña NP LAB BLOOD ORDERABLES Final Result DULCE MARIA [facility] Department [place] [address] * (ABNORMAL) Differential, auto (04/08/2025 6:40 PM CDT) Neutrophil abs 7.32(H) 1.50 - 6.50 K/cumm Imm gran abs 0.04 0.00 - 0.10 K/cumm [facility] Lymphocyte abs 0.92 0.80 - 3.30 K/cumm [facility] Monocyte abs 0.81(H) 0.20 - 0.80 K/cumm [facility] Eosinophil abs 0.20 0.00 - 0.50 K/cumm [facility] Basophil abs 0.04 0.00 - 0.10 K/cumm [facility] Neutrophil pct 78.5 % [facility] Comment: Interpretive Data Percent cell count reference ranges are not reported, since discordance with absolute values may lead to misinterpretation of CBC data. Current Interpretive Data was last revised on 2018. Imm gran pct 0.4 % [facility] Comment: Interpretive Data Percent cell count reference ranges are not reported, since discordance with absolute values may lead to misinterpretation of CBC data. Current Interpretive Data was last revised on 2018. Lymphocyte pct 9.9 % [facility] Comment: Interpretive Data Percent cell count reference ranges are not reported, since discordance with absolute values may lead to misinterpretation of CBC data. Current Interpretive Data was last revised on 2018. Monocyte pct 8.7 % [facility] Comment: Interpretive Data Percent cell count reference ranges are not reported, since discordance with absolute values may lead to misinterpretation of CBC data. Current Interpretive Data was last revised on 2018. Eosinophil pct 2.1 % [facility] Comment: Interpretive Data Percent cell count reference ranges are not reported, since discordance with absolute values may lead to misinterpretation of CBC data. Current Interpretive Data was last revised on 2018. Basophil pct 0.4 % [facility] Comment: Interpretive Data Percent cell count reference ranges are not reported, since discordance with absolute values may lead to misinterpretation of CBC data. Current Interpretive Data was last revised on 2018. Blood 04/08/2025 6:40 PM CDT 04/08/2025 7:33 PM CDT Blake Peña PROGRAM SUPPORT CLERK LAB BLOOD ORDERABLES Final Result Performing Organization Address [facility]/ZIP Co de Phone Number DULCE MARIA ARANDA [facility] [place] [address] * (ABNORMAL) Pro B-type natriuretic peptide (04/08/2025 [...] et.al. Eur Heart J. 2006:27:330-337. 2. Sujey RW, Antonio AM. J. AM Monika Cardiol: Cardiovasc Imag. 2009;2: 216- 225. Interpretive Data Last Revised Date: 2018. Blood 04/08/2025 6:40 PM CDT 04/08/2025 7:33 PM CDT us Blake Peña PROGRAM SUPPORT CLERK LAB BLOOD ORDERABLES Final Result Performing Organization Address [facility] Co de Phone Number [facility] Department [place] [address] * (ABNORMAL) CBC with auto differential (04/08/2025 6:40 PM CDT) [facility] WBC 9.33 3.80 - 9.90 K/cumm Hgb 14.5 13.0 - 17.5 g/dL [facility] Hct 46.4 38.9 - 50.3 % [facility] Plt 218 150 - 400 K/cumm [facility] MPV 11.8 9.1 - 12.3 fL [facility] RBC 5.50 4.30 - 5.80 M/cumm [facility] MCV 84.4 81.3 - 96.4 fL [facility] MCH 26.4(L) 27.1 - 33.3 pg [facility] MCHC 31.3(L) 32.3 - 35.7 g/dL [facility] RDW CV 15.5(H) 11.1 - 14.9 % [facility] RDW SD 46.8 35.7 - 48.1 fL [facility] NRBC abs 0.00 0.00 - 0.01 K/cumm [facility] Blood 04/08/2025 6:40 PM CDT 04/08/2025 7:33 PM CDT Blake Peña PROGRAM SUPPORT CLERK LAB BLOOD ORDERABLES Final Result DULCE MARIA [facility] Department [place] [address] * aPTT (04/08/2025 6:40 PM CDT) [facility] aPTT 34 28 - 38 sec Comment: Interpretive Data Heparin therapeutic range: 66.0 - 100.0 seconds. Range based on correlation with therapeutic heparin activity range of 0.3 - 0.7 Units/mL. Current interpretive data was last revised on 2023. Blood 04/08/2025 6:40 PM CDT 04/08/2025 7:31 PM CDT us Blake Peña PROGRAM SUPPORT CLERK LAB BLOOD ORDERABLES Final Result DULCE MARIA [facility] [place] [address] * (ABNORMAL) Protime-INR (04/08/2025 6:40 PM CDT) PT 13.4(H) 9.7 - 13.0 sec INR 1.24(H) 0.90 - 1.20 [facility] Comment: Interpretive data Oral anticoagulant therapeutic ranges: Venous thromboembolism prophylaxis or treatment: 2.0-3.0 CARDIOLOGY Standard range: 2.0-3.0 High-intensity range: 2.5-3.5 Refer to indication-specific guidelines for appropriate target ranges for prosthetic heart valve replacement. Current interpretive data was last revised on 2019. Blood 04/08/2025 6:40 PM CDT 04/08/2025 7:31 PM CDT us Blake Peña PROGRAM SUPPORT CLERK LAB BLOOD ORDERABLES Final Result Performing Organization Address City/[facility]/ZIP Co de Phone Number DULCE MARIA [facility] Department [place] [address] * Magnesium (04/08/2025 6:40 PM CDT) Pathologist [facility] Magnesium 2.3 1.4 - 2.5 mg/dL Blood 04/08/2025 6:40 PM CDT 04/08/2025 7:33 PM CDT us Blake Peña PROGRAM SUPPORT CLERK LAB BLOOD ORDERABLES Final Result Performing Organization Address City/[facility] Co de Phone Number DULCE MARIA [facility] [place] [address] * Digoxin level (04/08/2025 6:40 PM CDT) Pathologist [facility] Digoxin 0.5 0.5 - 1.2 ng/mL Comment: Interpretive data The therapeutic range for digoxin varies by indication: Heart failure: 0.5 to 0.8 ng/mL Atrial fibrillation: less than 1.2 ng/mL Toxicity: >2.4. Normal or low digoxin does not rule out toxicity. Current interpretive data was last revised on 2024. Blood 04/08/2025 6:40 PM CDT 04/08/2025 7:33 PM CDT Elinor Barone NP LAB BLOOD ORDERABLES Final Result [facility] [place] [address] * (ABNORMAL) Comprehensive metabolic panel (04/08/2025 6:40 PM CDT) Sodium 138 135 - 145 mmol/L Potassium, pl 4.0 3.3 - 4.9 mmol/L [facility] Chloride 99 97 - 110 mmol/L [facility] CO2 28 22 - 32 mmol/L [facility] Anion gap 11 2 - 15 mmol/L [facility] BUN 25 6 - 25 mg/dL [facility] Creatinine 1.49(H) 0.80 - 1.30 mg/dL [facility] Glucose 109 70 - 199 mg/dL [facility] Comment: Interpretive Data Fasting glucose >/= 126 [...] 2022. Calcium 9.9 8.5 - 10.3 mg/dL [facility] Bilirubin, total 0.8 0.1 - 1.2 mg/dL [facility] Protein, pl 6.3(L) 6.5 - 8.5 g/dL [facility] Albumin 3.9 3.5 - 5.0 g/dL [facility] Alk phos 214(H) 40 - 130 Units/L [facility] ALT 26 7 - 55 Units/L [facility] AST 24 10 - 50 Units/L [facility] Blood 04/08/2025 6:40 PM CDT 04/08/2025 7:30 PM CDT us Blake Ulises Casey PROGRAM SUPPORT CLERK LAB BLOOD ORDERABLES Final Result [facility] [place] [address] * RIGHT HEART CATH (04/08/2025 9:27 AM CDT) Anatomical Region Laterality Modality X-Ray Angiograph y Narrative 04/08/2025 10:10 AM CDT [facility] CAT[facility]TER[facility] LAB REPORT PROCEDURE: Right heart [...] the usual sterile fashion. I provided direct [id number] monitoring of conscious sedation which was administered by an independent trained nurse using Fentanyl 25 mcg and Midazolam 1 mg. Sedation time 17 min. Local anesthesia with 1% lidocaine was used. Venous access was obtained in theRight Internal Jugular vein using modified Seldinger technique and micropuncture approach. A 7 Pakistani sheath was secured into place. Right heart catheterization was performed with a 7 Pakistani TD [place] Jayne catheter. The catheter was advanced sequentially [...] Medicine Advanced Heart Failure and Cardiac Transplantation us Yaakov Lawrence MD PhD CV CARDIAC CATH [place] OCEDURES Final Result * (ABNORMAL) POCT oxyhemoglobin (04/08/2025 9:21 AM CDT) [employer] Oxyhemoglobin 61.9(L) >=65.0 % [employer] Hemoglobin 13.7 13.0 - 17.5 g/dL [facility] ESL TUTOR O2 content 11.8(L) 15.0 - 22.0 Vol % [facility] Anatomic Site aPOC Pulm Artery [facility] Blood 04/08/2025 9:21 AM CDT 04/08/2025 9:21 AM CDT Yaakvo Lawrence MD PhD LAB POCT ORDERABLE S - DEVICE Final Result Performing Organization Address [facility] de Phone Number [facility] [place] [address] * (ABNORMAL) POCT oxyhemoglobin (04/08/2025 9:20 AM CDT) Pathologist [facility] ESL TUTOR Oxyhemoglobin 61.7(L) >=65.0 % [employer] Hemoglobin 14.1 13.0 - 17.5 g/dL [facility] ESL TUTOR O2 content 12.1(L) 15.0 - 22.0 Vol % [facility] Anatomic Site aPOC Pulm Artery [facility] Blood 04/08/2025 9:20 AM CDT 04/08/2025 9:20 AM CDT Yaakov Lawrence MD PhD LAB POCT ORDERABLE S - DEVICE Final Result Performing Organization Address [facility] de Phone Number [facility] [place] [address] * ECG 12 lead (04/08/2025 8:19 AM CDT) Ventricular Rate EKG/Min 95 BPM [facility] Atrial Rate 95 BPM [facility] [place]-Interval (MSEC) 222 ms [facility] QRS-Interval (MSEC) 100 ms [facility] QT-Interval (MSEC) 374 ms [facility] QTc 469 ms [facility] P [place] 90 degrees [facility] R [place] -89 degrees [facility] T [place] 81 degrees [facility] Diagnosis Sinus rhythm with 1st degree A-V block Left axis deviation Low voltage QRS Incomplete right bundle branch block Inferior infarct , age undetermined Cannot rule out Anteroseptal infarct , age undetermined Abnormal ECG When compared with ECG of 28-NOV-2023 03:00, PREVIOUS ECG IS PRESENT Confirmed by MERARY ZEPEDA M.D ([id number]) on 04/08/2025 11:04:08 AM [facility] 04/08/2025 8:19 AM CDT 04/08/2025 11:04 AM CDT us Jessica Snow MD PhD ECG ORDERABLES Final Result [facility] [employer] [facility] * (ABNORMAL) eGFR (04/02/2025 9:42 AM CDT) eGFR 53(L) >=60 mL/min/1. 73 [...] 9:42 AM CDT 04/02/2025 10:02 AM CDT us Justin Flowers MD LAB BLOOD ORDER LINH Final Result DULCE MARIA [facility] Department [place] [address] * (ABNORMAL) Differential, auto (04/02/2025 9:42 AM CDT) Neutrophil abs 5.50 1.50 - 6.50 K/cumm Comment:Testing performed by : [facility], [address] [place] [address] Lymphocyte abs 0.71(L) 0.80 - 3.30 K/cumm [facility] Comment:Testing performed by : [facility], [address] [place] [address] Monocyte abs 0.62 0.20 - 0.80 K/cumm [facility] Comment:Testing performed by : [facility], [address] [place], [place] [id number] Eosinophil abs 0.05 0.00 - 0.50 K/cumm [facility] Comment:Testing performed by : [facility], [address] [place] [address] Basophil abs 0.04 0.00 - 0.10 K/cumm [facility] Comment:Testing performed by : [facility], [address] [place], [place] [id number] Neutrophil pct 79.5 % [facility] Comment: Interpretive Data Percent cell count reference ranges are not reported, since discordance with absolute values may lead to misinterpretation of CBC data. Current Interpretive Data was last revised on 2018. Testing performed by: [facility], [address] [place] [phone] Lymphocyte pct 10.3 % [facility] Comment: Interpretive Data Percent cell count reference ranges are not reported, since discordance with absolute values may lead to misinterpretation of CBC data. Current Interpretive Data was last revised on 2018. Testing performed by: [facility], [address] [place] [address] Monocyte pct 8.9 % [facility] Comment: Interpretive Data Percent cell count reference ranges are not reported, since discordance with absolute values may lead to misinterpretation of CBC data. Current Interpretive Data was last revised on 2018. Testing performed by: [facility], [address] [place] [phone] Eosinophil pct 0.7 % DULCE MARIA [facility] Comment: Interpretive Data Percent cell count reference ranges are not reported, since discordance with absolute values may lead to misinterpretation of CBC data. Current Interpretive Data was last revised on 2018. Testing performed by: [facility], [address] [place] [phone] Basophil pct 0.6 % D[facility] Comment: Interpretive Data Percent cell count reference ranges are not reported, since discordance with absolute values may lead to misinterpretation of CBC data. Current Interpretive Data was last revised on 2018. Testing performed by: [facility], [address] [place] [phone] Blood 04/02/2025 9:42 AM CDT 04/02/2025 9:56 AM CDT Justin Flowers MD LAB BLOOD ORDER LINH Final Result [facility] Department [place] [address] * Immunoglobulin free light chains (04/02/2025 9:42 AM CDT) [place]/Lambda ratio BJ 0.71 0.26 - 1.65 Comment: Interpretive Data The Binding Site FreeLite assay procedure was used. Results from different manufacturers or methods may not be comparable. Serial testing should be performed using the same methods and instrumentation. Current Interpretive Data was last revised on 2024. [place] free light chain [facility] 0.45 0.33 - 1.94 mg/dL [facility] Comment: Interpretive Data The Binding Site FreeLite assay procedure was used. Results from different manufacturers or methods may not be comparable. Serial testing should be performed using the same methods and instrumentation. Current Interpretive Data was last revised on 2024. Lambda free light chain [facility] 0.63 0.57 - 2.63 mg/dL [facility] Comment: Interpretive Data The Binding Site FreeLite assay procedure was used. Results from different manufacturers or methods may not be comparable. Serial testing should be performed using the same methods and instrumentation. Current Interpretive Data was last revised on 2024. Blood 04/02/2025 9:42 AM CDT 04/02/2025 11:33 AM CDT Justin Flowers MD LAB BLOOD ORDER LINH Final Result [facility]UL[facility] MARIA [facility] [place] [address] * (ABNORMAL) Pro B-type natriuretic peptide (04/02/2025 [...] et.al. Eur Heart J. 2006:27:330-337. 2. Sujey RW, Antonio AM. J. AM Monika Cardiol: Cardiovasc Imag. 2009;2: 216- 225. Interpretive Data Last Revised Date: 2018. Blood 04/02/2025 9:42 AM CDT 04/02/2025 10:54 AM CDT Justin Flowers MD LAB BLOOD ORDER LINH Final Result [facility] Department [place] [address] * (ABNORMAL) CBC with auto differential (04/02/2025 9:42 AM CDT) WBC 6.92 3.80 - 9.90 K/cumm Comment:Testing performed by : [facility], [address] [place] [address] Hgb 14.0 13.0 - 17.5 g/dL DULCE MARIA [facility]DA Comment:Testing performed by : [facility], [address] [place] [address] Hct 43.2 38.9 - 50.3 % CERTRACEY ARANDA Comment:Testing performed by : [facility], [address] [place] [address] Plt 223 150 - 400 K/cumm DULCE MARIA [facility]DA Comment:Testing performed by : [facility], [address] [place] [address] MPV 8.9 6.8 - 10.4 fL DULCE MARIA [facility] Comment:Testing performed by : [facility], [address] [place] [address] RBC 5.22 4.30 - 5.80 M/cumm DULCE MARIA ARANDA Comment:Testing performed by : [facility], [address] [place] [address] MCV 82.8 81.3 - 96.4 fL CERTRACEY ARANDA Comment:Testing performed by : [facility], [address] [place] [address] MCH 26.8(L) 27.1 - 33.3 pg [facility] Comment:Testing performed by : [facility], [address] [place] [phone] MCHC 32.4 32.3 - 35.7 g/dL DULCE MARIA ARNADA Comment:Testing performed by : [facility], [address] [place] [phone] RDW CV 15.7(H) 11.1 - 14.9 % [facility] Comment:Testing performed by : [facility], [address] [place] [phone] NRBC abs 0.00 0.00 - 0.01 K/cumm [facility] Comment:Testing performed by : [facility], [address] [place] [phone] Blood 04/02/2025 9:42 AM CDT 04/02/2025 9:56 AM CDT Justin Flowers MD LAB BLOOD ORDER LINH Final Result Performing Organization Address [facility] de Phone Number [facility] Department [place] [address] * aPTT (04/02/2025 9:42 AM CDT) aPTT [...] ORDER LINH Final Result Performing Organization Address City/[facility] de Phone Number [facility] Department [place] [address] * (ABNORMAL) Protime-INR (04/02/2025 9:42 AM CDT) Pathologist [facility] PT 19.8(H) 9.7 - 13.0 sec INR 1.81(H) 0.90 - 1.20 [facility] Comment: Interpretive data Oral anticoagulant therapeutic ranges: Venous thromboembolism prophylaxis or treatment: 2.0-3.0 CARDIOLOGY Standard range: 2.0-3.0 High-intensity range: 2.5-3.5 Refer to indication-specific guidelines for appropriate target ranges for prosthetic heart valve replacement. Current interpretive data was last revised on 2019. Blood 04/02/2025 9:42 AM CDT 04/02/2025 10:54 AM CDT Justin Flowers MD LAB BLOOD ORDER LINH Final Result Performing Organization Address City/[facility]/ZIP Co de Phone Number [facility] Department [place] [address] * Uric acid (04/02/2025 9:42 AM CDT) [facility] Uric acid 7.5 3.0 - 8.0 mg/dL Blood 04/02/2025 9:42 AM CDT 04/02/2025 10:02 AM CDT Justin Flowers MD LAB BLOOD ORDER LINH Final Result [facility] Department [place] [address] * (ABNORMAL) Protein electrophoresis with reflex, serum with interpretation (04/02/2025 9:42 AM CDT) [facility] Protein, sr 5.9(L) 6.2 - 8.2 g/dL Albumin 3.8 3.2 - 5.0 g/dL [facility] Alpha-1 globulin 0.4 0.2 - 0.4 g/dL [facility] Alpha-2 globulin 0.8 0.5 - 1.0 g/dL [facility] Beta-1 globulin 0.4 0.3 - 0.6 g/dL [facility] Beta-2 globulin 0.2 0.2 - 0.6 g/dL [facility] Gamma globulin 0.3(L) 0.5 - 1.7 g/dL [facility] Rstr Pk Gamma 0.1(H) 0.0 - 0.0 g/dL [facility] SPEP interp Please see comment [facility] Comment: Abnormal restricted peak in gamma region Decreased gamma globulins Electrophoretic pattern appears similar to previous sample 02-07-25 Reviewed and signed by Merary Quintana MD, PhD 04/03/2025 Blood 04/02/2025 9:42 AM CDT 04/02/2025 11:33 AM CDT Justin Flowers MD LAB BLOOD ORDER LINH Final Result [facility] Department [place] [address] * Protein, total (04/02/2025 9:42 AM CDT) Pathologist [facility] Protein, pl See Comment 6.5 - 8.5 g/dL Comment:Credited, duplicate test. Blood 04/02/2025 9:42 AM CDT 04/02/2025 10:02 AM CDT Justin Flowers MD LAB BLOOD ORDER LINH Final Result [facility] Department [place] [address] * Lactate dehydrogenase (LD) (04/02/2025 9:42 AM CDT) Pathologist [facility] Lactate dehydrogenase (LDH) 183 100 - 250 Units/L Blood 04/02/2025 9:42 AM CDT 04/02/2025 10:02 AM CDT us Justin Flowers MD LAB BLOOD ORDER LINH Final Result Performing Organization Address [facility] de Phone Number [facility] [place] [address] * (ABNORMAL) IgA (04/02/2025 9:42 AM CDT) Immunoglobulin A <50(L) 70 - 400 mg/dL Blood 04/02/2025 9:42 AM CDT 04/02/2025 10:54 AM CDT Justin Flowers MD LAB BLOOD ORDER LINH Final Result Performing Organization Address [facility] de Phone Number [facility] [place] [address] * (ABNORMAL) IgM (04/02/2025 9:42 AM CDT) Immunoglobulin M <25(L) 40 - 230 mg/dL Blood 04/02/2025 9:42 AM CDT 04/02/2025 10:54 AM CDT Justin Flowers MD LAB BLOOD ORDER LINH Final Result Performing Organization Address [facility] de Phone Number [facility] Department [place] [address] * (ABNORMAL) IgG (04/02/2025 9:42 AM CDT) Immunoglobulin G 318(L) 700 - 1,600 mg/dL Blood 04/02/2025 9:42 AM CDT 04/02/2025 10:54 AM CDT us Justin Flowers MD LAB BLOOD ORDER LINH Final Result Performing Organization Address [facility] Co de Phone Number [facility] Department [place] [address] * (ABNORMAL) Beta 2 microglobulin, serum (04/02/2025 9:42 AM CDT) Beta 2 microglobulin, bld 4.00(H) 1.00 - 2.50 mg/L Comment: Interpretive Data The Lucas Beta-2 microglobulin assay procedure was used. Results from different manufacturers or methods may not be comparable. Serial testing should be performed using the same method. Blood 04/02/2025 9:42 AM CDT 04/02/2025 10:54 AM CDT Justin Flowers MD LAB BLOOD ORDER LINH Final Result Performing Organization Address [facility] de Phone Number [facility] Department [place] [address] * (ABNORMAL) Comprehensive metabolic panel (04/02/2025 9:42 AM CDT) Pathologist [facility] Sodium 138 135 - 145 mmol/L Potassium, pl 4.4 3.3 - 4.9 mmol/L [facility] Chloride 99 97 - 110 mmol/L [facility] CO2 30 22 - 32 mmol/L [facility] Anion gap 9 2 - 15 mmol/L [facility] BUN 25 6 - 25 mg/dL [facility] Creatinine 1.50(H) 0.80 - 1.30 mg/dL [facility] Glucose 150 70 - 199 mg/dL [facility] Comment: Interpretive Data Fasting glucose >/= 126 [...] 2022. 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 Specials protocols are implemented when working with a patient testing positive for C. Auris. 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 05/07/2025 05/07/2025 [place] [address] FORMERLY [facility] [employer] [employer] Address: [facility] [id number] [place] [address] [facility] Member Subscriber Plan / Payer (Ef fective 2023-Present) Name:Gosia Zuniga Relation to Subscriber:Self Name:AvaGosia coe Payer ID:[id number] (NAIC) Group ID:[id number] Type:[facility] Address: [address] [facility] [employer] Member Subscriber Plan / Payer (Ef fective 2023-Present) Name:AsuncionGosia William Relation to Subscriber:Self Name:AsuncionGosia William Payer ID:[id number] (NAIC) Group ID:[id number] Type:[employer] Address: [address] [facility] Member Subscriber Plan / Payer ( fective 2023-Present) Name:Gosia Zuniga Relation to Subscriber:Self Name:Asuncion Gosia William Payer ID:[id number] (NAIC) Group ID:[id number] Type:[employer] Address: [address] Advance Directives For more information, please contact: [phone] * Full Code (Latest Code Status on File) Date Activated Date Inactivated Comments 05/21/2025 6:37 AM 06/11/2025 8:58 PM * Full Code Date Activated Date Inactivated Comments 05/20/2025 1:32 AM 05/21/2025 6:37 AM * Full Code Date Activated Date Inactivated Comments 04/08/2025 9:38 AM 05/20/2025 1:32 AM * Full Code Date Activated Date Inactivated Comments 11/27/2023 5:46 PM 11/30/2023 5:34 PM Care Teams Project Controller Relationship Specialty Start Date End Date Anuel Vargas DO PCP - General Internal Medicine 10/19/22 Justin Flowers MD [address] [employer], [address] [place] [address] Consulting Physician Medical Oncology 10/06/23 Erlin Chong MD [address] [employer], [address] [place] [address] Referring Physician Cardiology 10/06/23 Alexandra Powell, RN [address] [facility] [address] [place] [address] Mailing Machine Operator Transplant 05/21/25
--- OUTSIDE RECORDS SUMMARY | 2025-06-24 11:59 | XMS_ITS | Clinical Summary ---
Author Organization [facility] Address [address] [place] [address] Care Team Providers Care Mobile Crane Operator Name Role Phone Anuel Vargas Primary Care Provider [phone] Justin Flowers MD Unavailable Erlin Chong MD Unavailable Alexandra Powell RN Unavailable [phone] Allergies No known active allergies Medications [...] Units under the skin nightly 15 mL 2024 Discontinued insulin glargine (LANTUS) 100 unit/mL (3 mL) pen for injection Inject 31 Units under the skin daily 15 mL 2024 Discontinued bumetanide (BUMEX) 1 mg tablet Take 1 tablet (1 mg total) by mouth daily 30 tablet 2024 Discontinued bumetanide (BUMEX) 1 mg tablet Take 1 tablet (1 mg total) by mouth 2 (two) times a day 60 tablet 06/17/ 2025 Discontinued(A lternate therapy) glecaprevir-pibr entasvir (MAVYRET) 100-40 [...] # 1 RA 8, Grade 0R -06/04 BUSINESS OFFICE SPECIALIST weaned to off -06/05 ECHO Normal left [...] for molecular testing (ThyroSeq) -[facility] contacted ([phone] option 4)-they are planning send sample out [...] for molecular testing (ThyroSeq) -[facility] contacted ([phone] option 4)-they are planning send sample out on Tuesday () but should touch base with them again [...] low cardiac output at rest. -TTE at CT 12/2024: EF 30-35%, moderate RV dysfunction, severe [...] transplanted, whichever comes first -[facility] w/ leave-in [place] today -Strict I&Os, daily standing weights, 2G [...] low cardiac output at rest. -TTE at CT 12/2024: EF 30-35%, moderate RV dysfunction, severe [...] low cardiac output at rest. -TTE at CT 12/2024: EF 30-35%, moderate RV dysfunction, severe [...] low cardiac output at rest. -TTE at CT 12/2024: EF 30-35%, moderate RV dysfunction, severe [...] low cardiac output at rest. -TTE at CT 12/2024: EF 30-35%, moderate RV dysfunction, severe [...] low cardiac output at rest. -TTE at CT 12/2024: EF 30-35%, moderate RV dysfunction, severe diastolic dysfunction, could not rule out LV apical thrombus -NT-proBNP 7,899 -started BUSINESS OFFICE SPECIALIST 2.5mcg/kg/hr -continue digoxin 125mcg daily, torsemide 20mg [...] (07/02/2021): Added automatically from request for surgery [id number] Assessment & Plan (08/03/2021 5:06 PM CDT): [...] Type Department Care Team Description 06/21/2025 Telephone [facility] Transplant Heart [address] [facility] [address] Mailstop 90-89-356 [place] [address] Alda Coburn 06/18/2025 1:52 PM CDT - 06/18/2025 11:59 PM CDT Hospital Encounter [facility] [address] [place] [address] Heart transplanted (HCC) Discharge Disposition: Discharge to home or self care 06/18/2025 12:30 PM CDT Office Visit [facility] Cardiothoracic Surgery [address] [facility] 8th Floor [address] [place] [phone] Addy Tapia MD Heart transplanted (HCC) (Primary Dx) 06/18/2025 12:06 PM CDT - 06/18/2025 11:59 PM CDT Hospital Encounter [facility] [address] [place] [address] Follow-up examination following surgery Discharge Disposition: Discharge to home or self care 06/17/2025 1:58 PM CDT - 06/17/2025 11:59 PM CDT Hospital Encounter [address] [address] 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) Discharge Disposition: Discharge to home or self care 06/17/2025 12:00 PM CDT Office Visit [facility] Cardiology [address] [place] [address] Medical Office Building [address] [place] [phone] Acute kidney injury superimposed on CKD (Primary Dx); Acute hepatitis C virus infection without hepatic coma; AL amyloidosis (HCC); 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); Heart transplanted (HCC) 06/17/2025 12:00 PM CDT - 06/17/2025 12:30 PM CDT Surgery [facility] [address] [place] [address] [address] [place] [phone] Carlos Fairbanks MD ENDOMYOCARDIAL BIOPSY 13039 06/17/2025 12:00 PM CDT - 06/17/2025 11:59 PM CDT Hospital Encounter [address] [place] [phone] Rodney Amos MD PhD 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) Discharge Disposition: Discharge to home or self care 06/17/2025 11:28 AM CDT - 06/17/2025 11:59 PM CDT Hospital Encounter [address] [place] [address] 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) Discharge Disposition: Discharge to home or self care 06/17/2025 Telephone [facility] Transplant Heart [address] [facility] [address] [place] [address]-[address] [place] [address] Mono Niño RN 06/14/2025 Orders Only [facility] Gastroenterology [address] [facility] 12th [place] [address] [place] [address] Yamel Pearson, CECE Hepatitis C virus infection without hepatic coma, unspecified chronicity (Primary Dx) 06/14/2025 Telephone [facility] Transplant Heart [address] [place] [address] [place] [address] Chidi Iglesias 06/13/2025 Telephone [facility] Transplant Heart [address] [facility] [address] [place], [place] [address]op [facility] [place] [address] Yue Corado 06/13/2025 Orders Only [facility] Transplant Heart [address] [facility] [address] [place] [address] Yue Corado 06/13/2025 Telephone [facility] Gastroenterology [address] [facility] 12th [place] [address] [place] [phone] Yamel Pearson, CECE 06/13/2025 Documentation [facility] Gastroenterology [address] [facility] 12th [place] [address] [place] [phone] Yamel Pearson RN 06/12/2025 7:15 PM CDT - 06/12/2025 8:31 PM CDT Emergency [facility] Emergency Department 1 [place] [address] Yossi Hodges MD Fall, initial encounter (Primary Dx); Multiple abrasions; Periorbital hematoma of right eye; History of heart transplant (HCC) Discharge Disposition: Discharge to home or self care 06/12/2025 Telephone [facility] Social Work 1 [place] [phone] Alexandra Colin LCSW 06/12/2025 Telephone [facility] Transplant Heart [address] [place] [address] 3401 Mailstop [phone] [place] [address] Alda Coburn 06/11/2025 Orders Only [facility] Bone Marrow Transplant [address] [facility] Floor 6 [place] [phone] Justin Lowery MD AL amyloidosis (HCC) (Primary Dx) 06/07/2025 Telephone [facility] Transplant Heart [address] [place] [address] 3401 Mailstop 90-42-456 [place] [address] Alexandra Powell, CECE 06/07/2025 Telephone [facility] Transplant Heart [address] [place] [address] [address] Mailstop 64-03-353 [place] [address] Alexandra Powell, RN 06/07/2025 Documentation [facility] Endocrinology Metabolism and Lipid [address] [facility] 13th [place] [address] [place] [phone] aCrolyn Ponce MD 06/04/2025 Orders Only [facility] Cardiothoracic Surgery [address] [facility] 8th Floor [address] Room 08-085 [place] [phone] Addy Tapia MD Follow-up examination following surgery (Primary Dx) 06/03/2025 8:15 AM CDT - 06/03/2025 9:40 AM CDT Surgery [facility] Heart and Vascular Center 1 [place] [address] Rodney Amos MD PhD ENDOMYOCARDIAL BIOPSY 45690 05/28/2025 Results Follow-Up [facility] Gasteroenterology [address] [facility] 12th [place] [address] [place] [address] Jessica Marti MD Hepatitis C genotype Blood 05/21/2025 Telephone [facility] Transplant Kidney [address] [facility] [address] Mailstop 83-91-241 [place] [address] Libia Frances 05/21/2025 Telephone [facility] Transplant Kidney [address] [facility] [address] Mailstop 56-85-973 [place] [address] Libia Frances 05/20/2025 10:32 PM CDT Anesthesia Event [facility] Operating Room 1 [place] [address] Gosia Wilkins MD PhD Alma Roldan MD 05/20/2025 10:30 PM CDT - 05/21/2025 8:30 AM CDT Surgery [facility] Operating Room 1 [place] [address] Addy Tapia MD TRANSPLANT HEART UNOS:[id number] [[id number]] 05/20/2025 9:20 PM CDT Ancillary Procedure [facility] Operating Room 1 [place] [address] Gosia Wilkins MD PhD 05/19/2025 Telephone [facility] Transplant Lung [address] [facility] [address] Mailstop [phone] [place] [address] Radha Sullivan, assistant teacher Organ Offer 05/17/2025 9:30 AM CDT - 05/17/2025 10:50 AM CDT Surgery [facility] Heart and Vascular Center 1 [place] [address] Vannesa Gibbs MD RIGHT HEART CATHETERIZATION 59538 05/16/2025 Documentation [facility] Transplant Heart [address] [facility] [address] Mailstop -96-90 [place] [address] Katerina Romero, CECE Waitlist Maintenance 05/08/2025 Documentation [facility] Endocrinology Metabolism and Lipid [address] [facility] 13th [place] [address] [place] [address] Edmundo Best MD 05/02/2025 11:40 AM CDT - 05/02/2025 1:50 PM CDT Surgery [facility] Heart and Vascular Center [address] [place] [address] Felicitas Rodgers DO RIGHT HEART CATHETERIZATION [address] 05/01/2025 Documentation [facility] Transplant Heart [address] [facility] 34[address] Mailstop -37-491 [place] [address] Katerina Romero RN 04/29/2025 Orders Only [facility] Bone Marrow Transplant [address] [facility] Floor 6 [place] [address] Stephon Lundy MD 04/29/2025 Orders Only [address] [address] Jerome Mora [facility] 04/17/2025 Documentation [facility] Transplant Heart [address] [facility] 3401 Mailstop -05-909 [place] [address] Katerina Romero, CECE New Transplant Listing 04/17/2025 Documentation [facility] Transplant Heart [address] [facility] [address] Mailstop -20-440 [place] [address] Katerina Romero, RN Hepatitis B Vaccination Assessment 04/17/2025 Documentation [facility] Transplant Heart [address] [facility] [address] Mailstop 90-11-309 [place] [address] Katerina Romero, RN ABO Verification 04/17/2025 Documentation [facility] Transplant Heart [address] [place] [address] 3401 Mailstop -[phone] [place] [address] Katerina Romero, CECE 04/17/2025 Orders Only [facility] Endocrinology Metabolism and Lipid [address] [facility] 13th [place] [address] [place] [address] Carolyn Ponce MD Thyroid nodule (Primary Dx) 04/16/2025 10:15 AM CDT - 04/16/2025 11:25 AM CDT Surgery [facility] Heart and Vascular Center 1 [place] [address] Felicitas Rodgers, RIGHT HEART CATHETERIZATION [address] with leave-in [place] 04/12/2025 Documentation [facility] Transplant Heart [address] [place], [place] [address] Mailop 90-44-4 [place] [address] Sindy Melara 04/10/2025 Documentation [facility] Transplant Heart [address] [place], [place] [address] Mailop 90-98-905 [place] [address] Katerina Romero, CECE Pre-transplant Patient Education 04/09/2025 11:32 AM CDT - 04/09/2025 11:59 PM CDT Hospital Encounter [facility] Pulmonary 1 [place] [address] Discharge Disposition: Discharge to home or self care 04/09/2025 8:45 AM CDT Ancillary Procedure [facility] Vascular Lab IP 1 [facility] [address] [place] [address] 04/09/2025 8:40 AM CDT Ancillary Procedure [facility] Vascular Lab IP 1 [facility] [address] [place] [address] 04/09/2025 Telephone [facility] Transplant Heart [address] [facility] [address] Mailstop 15-77-769 [place] [address] Katerina Romero RN 04/09/2025 Telephone [facility] Transplant Kidney [address] [facility] [address] Mailstop 25-66-821 [place] [address] Leonor Pollard 04/08/2025 8:15 AM CDT - 04/08/2025 9:30 AM CDT Surgery [facility] Vascular Center 1 [place] [address] Jessica Snow MD PhD RIGHT HEART CATHETERIZATION [address] 04/08/2025 7:46 AM CDT - 06/11/2025 4:58 PM CDT Hospital [address] [address] Artur, Oil Pipeline Dispatcher, MD Lawrence, Yaaokv Valera MD PhD Sintek, MD Sai Goyal, [...] home, home health skilled care 04/08/2025 Telephone [facility] Transplant Heart [address] [facility] [address] Mailstop 46-44-786 [place] [address] Katerina Romero RN 04/05/2025 Telephone [facility] Transplant Heart [address] [facility] [address] Mailstop 66-48-037 [place] [address] Chidi Iglesias 04/04/2025 9:40 AM CDT Office Visit [facility] Nephrology [address] [facility] 5th [place] [address] Jackie Block MD Persistent proteinuria (Primary Dx); CKD (chronic kidney disease) stage 2, GFR 60-89 ml/min; Localized edema 04/03/2025 Telephone [facility] Cardiology [address] [facility] 8th [place] [address] [place] [address] Erlin Chong MD 04/03/2025 Telephone [facility] Transplant Heart [address] [place] [address] 3401 Mailstop 64-30-970 [place] [address] Chidi Iglesias 04/02/2025 12:00 PM CDT Infusion [facility] - Infusion [address] [place] [address] AL amyloidosis (HCC) (Primary Dx) 04/02/2025 10:45 AM CDT Office Visit [facility] Bone Marrow Transplant [address] [facility] 6 [place] [address] Anuradha Gagnon NP AL amyloidosis (HCC) (Primary Dx) 04/02/2025 9:45 AM CDT Lab [facility] - Lab Collection [facility] 6 [place] [address] AL amyloidosis (HCC) 04/02/2025 Telephone [facility] Transplant Heart [address] [facility] [address] Mailstop 85-54-783 [place] [address] Katerina Romero RN 04/02/2025 Orders Only [facility] Transplant Heart [address] [facility] [address] Mailstop 79-72-688 [place] [address] Katerina Romero RN Chronic heart failure with [...] CATHETERIZATION 04/08/2025 N/A Procedure: RIGHT HEART CATHETERIZATION 73440; Surgeon: Jessica Snow MD PhD; Location: [facility] CARDIAC HOSPITALITY SERVICES MANAGER; Service: Cardiovascular; Laterality: N/A; HF slot 1, follows with Dr. Lawrence at the CT, pt to be amditted for heart transplant evaluation s/p [facility] CARDIAC CATHETERIZATION 04/16/2025 Neck/N/A Procedure: RIGHT HEART CATHETERIZATION [address] with leave-in [place]; Surgeon: Felicitas Rodgers DO; Location: [facility] CARDIAC HOSPITALITY SERVICES MANAGER; Service: Cardiovascular; Laterality: N/A; with leave-in [facility] CARDIAC CATHETERIZATION 05/02/2025 N/A Procedure: RIGHT HEART CATHETERIZATION 73836; Surgeon: Felicitas Rodgers DO; Location: [facility] CARDIAC HOSPITALITY SERVICES MANAGER; Service: Cardiovascular; Laterality: N/A; with leave in Pulmonary artery catheter CARDIAC CATHETERIZATION 05/02/2025 N/A Procedure: RIGHT HEART CATHETERIZATION CORONARY ARTERY AND GRAFT ANGIOGRAM 12858; Surgeon: Felicitas Rodgers DO; Location: [facility] CARDIAC HOSPITALITY SERVICES MANAGER; Service: Cardiovascular; Laterality: N/A; CARDIAC CATHETERIZATION 05/17/2025 Chest/N/A Procedure: RIGHT HEART CATHETERIZATION 03016; Surgeon: Vannesa Gibbs MD; Location: [facility] CARDIAC HOSPITALITY SERVICES MANAGER; Service: Cardiovascular; Laterality: N/A; replace swan for status 2 e exception HEART TRANSPLANT 05/20/2025 - 05/21/2025 Chest/N/A Procedure: TRANSPLANT HEART UNOS:[id number]; Surgeon: Addy Tapia MD; Location: [facility] OR POD 3; Service: Cardiothoracic; Laterality: N/A; Medical devices from this surgery are in the Medical Devices section. CARDIAC CATHETERIZATION 06/03/2025 N/A Procedure: ENDOMYOCARDIAL BIOPSY 47829; Surgeon: Rodney Amos MD PhD; Location: [facility] CARDIAC HOSPITALITY SERVICES MANAGER; Service: Cardiovascular; Laterality: N/A; CARDIAC CATHETERIZATION 06/17/2025 N/A Procedure: ENDOMYOCARDIAL BIOPSY 25228; Surgeon: Carlos Fairbanks MD; Location: [facility] CARDIAC HOSPITALITY SERVICES MANAGER; Service: Cardiovascular; Laterality: N/A; Medical History Medical [...] Tobacco: Never Tobacco Cessation:Counseling Given: Not Answered [facility] Utilities Answer Date Recorded In the past 12 months has [facility] [employer], oil, or water [employer] threatened to shut off services in your [...] any time in the past 12 m [facility], were you homeless or living in a usp (including now)? No 04/10/2025 Personal Safety Answer Date Recorded Have you ever been in or are you currently in a harmful physical or emotional relationship or is someone making you feel afraid or unsafe? Denies 06/12/2025 Sex and Gender Information Value Date Recorded Sex Assigned at Not on file Legal Sex Male 12:25 PM OBSTETRICS GYNECOLOGY PHYSICIAN Gender Identity Male 05/28/2021 8:44 PM CDT Sexual Orientation Straight 10/19/2022 9: 47 AM OBSTETRICS GYNECOLOGY PHYSICIAN Obstetrics History Last Filed Vital Signs Vital [...] Info) Description 07/01/2025 Hospital Encounter [facility] [address] [facility] [address] [place] [address] Dmitry Dean MD [address] [address] Scheduled Procedures Name Priority Associated Diagnoses Date/Ti me ENDOMYOCARDIAL BIOPSY 41986 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 Immunosuppression Health Maintenance Due Date Last Done Comments Colon Cancer Screening-Colonoscopy 1964 Regular Well Visit/Exam 18-64 1982 Pneumococcal vaccine <65 (1 of 2 - PCV) 1983 DTaP/Tdap/Td Vaccine (2 - Td or Tdap) 05/03/2023 05/03/2013 Covid-19 Vaccine (2023-2 5 season) 2024 04/27/2022, 04/27/2022, 11/24/2021, Additional history exists Influenza Vaccine (#1) 2025 , 08/26/2020, 08/26/2020, Additional history exists Depression Screening 04/02/2026 04/02/2025, 04/02/20 Prostate Cancer Screening-PSA 04/09/2027 04/09/2025 Zoster Vaccine Completed 04/06/2022, 12/15/2021 Hepatitis B Screening Completed 05/31/2025, 025 Hepatitis C Screening Completed 06/17/2025 , 06/17/2025, 06/14/2025, Additional history exists Medical Devices Implanted Type Area Supervisor Hardboard Device Identifier Shelf Expiration Date Model / Serial / Lot Daig [employer] [id number] Angio-Seal Evolution 6fr .035in Guidewire Bypass Tube Suture - [id number] Implanted:Qty: 1 on 07/13/2021 by Mart Pimentel MD at [facility] Medical [facility] 01/18/2022 [id number] / / [id number] [employer] Sternalock 360 Sternal Closure 74-0004 - [id number] Implanted:Qty: 1 on 05/21/2025 by Soto Causey MD at [facility] N/A: Sternum [employer] 74-0004 / / [employer] Sternalock Ayden 2.4mm 12mm Self Drill Lock Sternum Cancellous 73-2412 - [id number] Implanted:Qty: 4 on 05/21/2025 by Soto Causey MD at [facility] N/A: Sternum [employer] 73-2412 / / [employer] Sternalock Ayden 2.4mm 14mm Self Drill Lock Sternum Cancellous 73-2414 - [id number] Implanted:Qty: 8 on 05/21/2025 by Soto Causey MD at [facility] N/A: Sternum [employer] 73-2414 / / [employer] Sternalock Ayden 2.4mm 18mm Self Drill Lock Sternum Cancellous 73-2418 - [id number] Implanted:Qty: 4 on 05/21/2025 by Soto Causey MD at [facility] N/A: Sternum [employer] [...] 1:07 PM CDT 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) SURGICAL PATHOLOGY Routine 06/17/2025 11:37 AM CDT [...] PEP THERAPY Routine 05/28/2025 1:00 PM CDT RN FACULTY EVALUATE AND TREAT STAT 05/28/2025 12:22 PM [...] LINE PLACEMENT Routine 05/21/2025 1:22 AM CDT NM AN PROCEDURE PLACEHOLDER Routine 05/21/2025 1:21 AM CDT NM AN CENTRAL LINE QUADRUPLE LUMEN Routine 05/21/2025 [...] CHEMISTRIES, ARTERIAL Routine 05/20/2025 11:46 PM CDT NM AN PROCEDURE PLACEHOLDER Routine 05/20/2025 11:24 PM CDT NM AN PROCEDURE PLACEHOLDER Routine 05/20/2025 11:19 PM CDT NM AN ELECTIVE ENDOTRACHEAL AIRWAY Routine 05/20/2025 11:19 [...] gran abs 0.04 0.00 - 0.10 K/cumm [facility] Lymphocyte abs 0.37(L) 0.80 - 3.30 K/cumm [facility] Monocyte abs 0.43 0.20 - 0.80 K/cumm [facility] Eosinophil abs 0.04 0.00 - 0.50 K/cumm [facility] Basophil abs 0.01 0.00 - 0.10 K/cumm [facility] Neutrophil pct 89.8 % [facility] Comment: Interpretive Data Percent cell count reference ranges are not reported, since discordance with absolute values may lead to misinterpretation of CBC data. Current Interpretive Data was last revised on 2018. Imm gran pct 0.5 % [facility] Comment: Interpretive Data Percent cell count reference ranges are not reported, since discordance with absolute values may lead to misinterpretation of CBC data. Current Interpretive Data was last revised on 2018. Lymphocyte pct 4.2 % [facility] Comment: Interpretive Data Percent cell count reference ranges are not reported, since discordance with absolute values may lead to misinterpretation of CBC data. Current Interpretive Data was last revised on 2018. Monocyte pct 4.9 % [facility] Comment: Interpretive Data Percent cell count reference ranges are not reported, since discordance with absolute values may lead to misinterpretation of CBC data. Current Interpretive Data was last revised on 2018. Eosinophil pct 0.5 % [facility] Comment: Interpretive Data Percent cell count reference ranges are not reported, since discordance with absolute values may lead to misinterpretation of CBC data. Current Interpretive Data was last revised on 2018. Basophil pct 0.1 % [facility] Comment: Interpretive Data Percent cell count reference ranges are not reported, since discordance with absolute values may lead to misinterpretation of CBC data. Current Interpretive Data was last revised on 2018. Blood 06/17/2025 2:15 PM CDT 06/17/2025 2:31 PM CDT us Carlos Fairbanks MD LAB BLOOD ORDERABLES Fin al Result Performing Organization Address [facility] de Phone Number [facility] [place], [place] [address] * Tacrolimus level trough (06/17/2025 2:15 PM CDT) [facility] Tacrolimus trough 13.3 ng/mL Comment: Interpretive Data Testing performed by liquid chromatography-tandem mass spectrometry. Therapeutic concentrations vary depending on type of transplanted organ and time elapsed since transplant. Typical trough concentrations range from 5-15 ng/mL. This test was developed and its performance characteristics determined by the [facility] consistent with CLIA requirements. This test has not been cleared or approved by the US Food and Drug administration. Current interpretive data last reviewed 2020. Blood 06/17/2025 2:15 PM CDT 06/17/2025 2:31 PM CDT Carlos Fairbanks MD LAB BLOOD ORDERABLES Fin al Result Performing Organization Address [facility] de Phone Number [facility] Department [place] [address] * (ABNORMAL) CBC with auto differential (06/17/2025 2:15 PM CDT) [facility] WBC 8.74 3.80 - 9.90 K/cumm Hgb 7.4(L) 13.0 - 17.5 g/dL [facility] Hct 23.7(L) 38.9 - 50.3 % [facility] Plt 384 150 - 400 K/cumm [facility] MPV 10.2 9.1 - 12.3 fL [facility] RBC 2.86(L) 4.30 - 5.80 M/cumm [facility] MCV 82.9 81.3 - 96.4 fL [facility] MCH 25.9(L) 27.1 - 33.3 pg [facility] MCHC 31.2(L) 32.3 - 35.7 g/dL [facility] RDW CV 15.9(H) 11.1 - 14.9 % [facility] RDW SD 47.0 35.7 - 48.1 fL [facility] NRBC abs 0.00 0.00 - 0.01 K/cumm [facility] Blood 06/17/2025 2:15 PM CDT 06/17/2025 2:31 PM CDT us Carlos Fairbanks MD LAB BLOOD ORDERABLES Fin al Result [facility] Department [place] [address] * TRANSTHORACIC ECHO (TTE) COMPLETE W DOPPLER/CF WO CONTRAST (06/17/2025 1:30 PM CDT) EF Mod BP 63 % CONS SCIMAGE Anatomical Region Laterality Modality Ultrasound 06/17/2025 12:2 5 PM CDT Narrative 06/17/2025 2:12 PM CDT [facility] Cardiac Diagnostic Lab [address] , [address] [place] [address] Transthoracic Echocardiographic Report Patient Name: GOSIA ZUNIGA W : 1965 (60y 1m) Gender: M Study Date: 06/17/2025 12:25:46 PM Ht(Inch): 72 Wt(Lb): 175.05 BSA: 2.01 Fishing Floats Assembler: Gemma Sheehan, RDCS, RCCS, ACS Location: HCI [...] Procedure Note Carlos Fairbanks MD - 06/17/2025 [facility] Cardiac Diagnostic Lab [address], [address] [place] [address] Transthoracic Echocardiographic Report Patient Name: GOSIA ZUNIGA W : 1965 (60y 1m) Gender: M Study Date: 06/17/2025 12:25:46 PM Ht(Inch): 72 Wt(Lb): 175.05 BSA: 2.01 Fishing Floats Assembler: Gemma Sheehan, RD, [facility], ACS Location: I Order Provider:CARLOS FAIRBANKS BMI: 23.74 BP: 133 / 80 Ref Provider: CARLOS FAIRBANSK - PROCEDURES: Echocardiographic Report: Transthoracic complete echo, [...] [ 52 - 72 ] MV Decel Llad669.02 msec [ 104.00 - 258.00 ] LV [...] Seldinger technique and micropuncture approach. A 7 Guyanese sheath was secured into place. 5) Endomyocardial biopsy was performed with echocardiographic guidance using a 7 Guyanese bioptome. The bioptome was visualized on the [...] results best viewed via link to PDF [facility] of Surgical Pathology One [facility], [place] [address] Note to Patients: This report may contain [...] Gender: M : 1965 (Age: 60) Address: [address] [place] [id number] Hospital #: [id number] Taken:06/17/2025 Received:06/17/2025 Reported: 06/18/2025 Patient Type: [facility] Service: UNKNOWN Location: Physician(s): Kalin Byrne M.D. Diagnosis: A. Heart, allograft, endomyocardial biopsy - No evidence of acute cellular rejection (ISHLT grade 0R) - No histologic features suggestive of antibody mediated rejection [facility] hospital/06/18/2025 07:52 By this signature, I attest that [...] Surgical Pathology and Flow Cytometry Departments at [facility] as part of an ongoing quality compliance manager program and in compliance with federally mandated [...] Surgical Pathology and Flow Cytometry Departments of [facility]. It has not been cleared or [...] BLOOD ORDERABLES Fin al Result DULCE MARIA ARANDA Radha [facility] Department [place] [address] * (ABNORMAL) eGFR (06/17/2025 11:30 AM CDT) [...] BLOOD ORDERABLES Fin al Result DULCE MARIA ARANDA [facility] Department [place] [address] * (ABNORMAL) Comprehensive metabolic panel, without glucose (Outreach) (06/17/2025 11:30 AM CDT) Sodium 136 135 - 145 mmol/L Potassium, pl 3.8 3.3 - 4.9 mmol/L [facility] Chloride 100 97 - 110 mmol/L [facility] CO2 22 22 - 32 mmol/L [facility] Anion gap 14 2 - 15 mmol/L [facility] BUN 65(H) 6 - 25 mg/dL [facility] Creatinine 2.33(H) 0.80 - 1.30 mg/dL [facility] Calcium 8.9 8.5 - 10.3 mg/dL [facility] Protein, pl 6.0(L) 6.5 - 8.5 g/dL [facility] Albumin 3.6 3.5 - 5.0 g/dL [facility] Bilirubin, total 0.4 0.1 - 1.2 mg/dL [facility] Alk phos 190(H) 40 - 130 Units/L [facility] AST 14 10 - 50 Units/L [facility] ALT 30 7 - 55 Units/L [facility] Blood 06/17/2025 11:3 0 AM CDT 06/17/2025 2:24 PM CDT us Carlos Fairbanks MD LAB BLOOD ORDERABLES Fin al Result [facility] Department [place] [address] * Tacrolimus level trough (06/13/2025 4:45 PM [...] NO LAB FOUND SCRIBED eGFR in NonAfrican Niuean 42 >89 TXP NO LAB FOUND Osmolality 303 n/a mOsmol/kg TXP NO LAB FOUND Blood 06/13/2025 us Carlos Fairbanks MD LAB BLOOD ORDERABLES [facility] al Result TXP NO LAB FOUND * ECG 12-LEAD (06/12/2025 7:05 PM CDT) Narrative [facility] - 06/12/2025 7:05 PM CDT Danny Rae [...] Hodges MD ECG ORDERABLES Final Resu lt [facility] * POCT glucose (06/11/2025 12:04 PM CDT) Glucose, POC 189 70 - 199 mg/dL Blood 06/11/2025 12:0 4 PM CDT 06/11/2025 12:04 PM CDT us Addy Tapia MD LAB POCT ORDERABLES - DE VICE Final Result Performing Organization Address City/[facility]/ZIP Co de Phone [facility] [place] [address] * POCT glucose (06/11/2025 7:46 AM CDT) Glucose, POC 103 70 - 199 mg/dL Blood 06/11/2025 7:46 AM CDT 06/11/2025 7:46 AM CDT Addy Tapia MD LAB POCT ORDERABLES - DE VICE Final Result Performing Organization Address [facility] Co ma Phone Number [facility] Department [place] [address] * Potassium, whole blood (06/11/2025 5:14 AM CDT) Potassium, bld 4.9 3.3 - 4.9 mmol/L Blood 06/11/2025 5:14 AM CDT 06/11/2025 6:27 AM CDT Bar Gamble MD LAB BLOOD ORDERABLES Final R esult Performing Organization Address [facility] Phone Number [facility] Department [place] [employer] [place] [address] * Tacrolimus level trough (06/11/2025 5:14 AM CDT) Tacrolimus trough 9.2 ng/mL Comment: Interpretive Data Testing performed by liquid chromatography-tandem mass spectrometry. Therapeutic concentrations vary depending on type of transplanted organ and time elapsed since transplant. Typical trough concentrations range from 5-15 ng/mL. This test was developed and its performance characteristics determined by the [facility] consistent with CLIA requirements. This test has not been cleared or approved by the US Food and Drug administration. Current interpretive data last reviewed 2020. Blood 06/11/2025 5:14 AM CDT 06/11/2025 6:27 AM CDT Zev Cowart MD PhD LAB BLOOD ORDERABLES Fi nal Result Performing Organization Address [facility] Co ma Phone Number [facility] [place] [address] * (ABNORMAL) POCT glucose (06/10/2025 8:53 PM CDT) [facility] Glucose, POC 218(H) 70 - 199 mg/dL Blood 06/10/2025 8:53 PM CDT 06/10/2025 8:53 PM CDT Addy Tapia MD LAB POCT ORDERABLES - DE VICE Final Result Performing Organization Address City/[facility]/ZIP Co de Phone Number [facility] Department [place] [address] * Antibody identification (06/10/2025 8:34 PM CDT) [facility] Antibody ID 1 Anti-CD38 Comment:Panreactive -CD38 on reagent RBCs reacting with anti-CD38 therapy. DTT treatment removes cell surface CD38 and allows detection of common clinically significant antibodies except those against [place] antigens. TRANSFUSION 2015;55;[id number] Blood 06/10/2025 8:34 PM CDT 06/10/2025 8:34 PM CDT Dinorah Kahn NP LAB BLOOD BANK TEST ORDERAB LES Final Result Performing Organization Address [facility] Co de Phone Number [facility] Department [place] [address] * (ABNORMAL) eGFR (06/10/2025 6:18 PM CDT) [facility] eGFR 50(L) >=60 mL/min/1. 73 m2 Comment: [...] 6:18 PM CDT 06/10/2025 7:23 PM CDT us Libia Suarez NURSE FIRST AID LAB BLOOD ORDERABLES Final Re sult [facility] One [facility] Department [place] [address] * (ABNORMAL) CBC without differential (06/10/2025 6:18 PM CDT) WBC 10.00(H) 3.80 - 9.90 K/cumm Hgb 7.8(L) 13.0 - 17.5 g/dL [facility] Hct 23.7(L) 38.9 - 50.3 % [facility] Plt 356 150 - 400 K/cumm [facility] MPV 10.8 9.1 - 12.3 fL [facility] RBC 2.84(L) 4.30 - 5.80 M/cumm [facility] MCV 83.5 81.3 - 96.4 fL [facility] MCH 27.5 27.1 - 33.3 pg [facility] MCHC 32.9 32.3 - 35.7 g/dL [facility] RDW CV 16.3(H) 11.1 - 14.9 % [facility] RDW SD 47.9 35.7 - 48.1 fL [facility] NRBC abs 0.00 0.00 - 0.01 K/cumm [facility] Blood 06/10/2025 6:18 PM CDT 06/10/2025 7:22 PM CDT Dinorah Kahn NP LAB BLOOD ORDERABLES Final Result Performing Organization Address [facility] [place] [address] * (ABNORMAL) Type and screen (06/10/2025 6:18 PM CDT) Poppy, indirect Positive(A) ABO Rh O Positive [facility] Blood 06/10/2025 6:18 PM CDT 06/10/2025 7:02 PM CDT Narrative [facility] - 06/10/2025 8:34 PM CDT Has the patient had Daratumumab or Isatuximab in the past 6 months?->Unknown Dinorah Kahn NP LAB BLOOD BANK TEST ORDERAB LES Final Result Performing Organization Address [facility] Co de Phone [place] [address] * Phosphorus (06/10/2025 6:18 PM CDT) Pathologist [facility] Phosphorus, pl 3.5 2.3 - 4.5 mg/dL Blood 06/10/2025 6:18 PM CDT 06/10/2025 7:23 PM CDT Libia Suarez NURSE FIRST AID LAB BLOOD ORDERABLES Final Re sult Performing Organization Address [facility] [place] [address] * Magnesium (06/10/2025 6:18 PM CDT) Magnesium 2.1 1.4 - 2.5 mg/dL Blood 06/10/2025 6:18 PM CDT 06/10/2025 7:23 PM CDT Dinorah M. Kronk NURSE FIRST AID LAB BLOOD ORDERABLES Final Result Performing Organization Address [facility]/ZIP Co de Phone Number [facility] [place] [address] * (ABNORMAL) Hepatic function panel (06/10/2025 6:18 PM CDT) Bilirubin, total 0.5 0.1 - 1.2 mg/dL Bilirubin, direct 0.3 0.1 - 0.3 mg/dL [facility] Protein, pl 6.0(L) 6.5 - 8.5 g/dL [facility] Albumin 3.7 3.5 - 5.0 g/dL [facility] Alk phos 295(H) 40 - 130 Units/L [facility] ALT 50 7 - 55 Units/L [facility] AST 24 10 - 50 Units/L [facility] Blood 06/10/2025 6:18 PM CDT 06/10/2025 7:23 PM CDT Libia Suarez NURSE FIRST AID LAB BLOOD ORDERABLES Final Re sult Performing Organization Address [facility] Co de Phone Number [facility] Department [place] [address] * (ABNORMAL) Basic metabolic panel (06/10/2025 6:18 PM CDT) Sodium 136 135 - 145 mmol/L Potassium, pl 5.1(H) 3.3 - 4.9 mmol/L [facility] Chloride 104 97 - 110 mmol/L [facility] CO2 22 22 - 32 mmol/L [facility] Anion gap 10 2 - 15 mmol/L [facility] BUN 63(H) 6 - 25 mg/dL [facility] Creatinine 1.56(H) 0.80 - 1.30 mg/dL [facility] Glucose 224(H) 70 - 199 mg/dL [facility] Comment: Interpretive Data Fasting glucose >/= [...] 2022. Calcium 9.3 8.5 - 10.3 mg/dL [facility] Blood 06/10/2025 6:18 PM CDT 06/10/2025 7:23 PM CDT Libia Suarez NP LAB BLOOD ORDERABLES Final Re sult Performing Organization Address City/[facility]/ZIP Co de Phone Number [facility] [employer] [place] [address] * POCT glucose (06/10/2025 4:36 PM CDT) Glucose, POC 198 70 - 199 mg/dL Blood 06/10/2025 4:36 PM CDT 06/10/2025 4:36 PM CDT Result [facility] Addy Tapia MD LAB POCT ORDERABLES - DE VICE Final Result Performing Organization Address [facility] Co de Phone Number [facility] [place] [employer] [place] [address] * POCT glucose (06/10/2025 11:47 AM CDT) Glucose, POC 146 70 - 199 mg/dL Blood 06/10/2025 11:4 7 AM CDT 06/10/2025 11:47 AM CDT Addy Tapia MD LAB POCT ORDERABLES - DE VICE Final Result Performing Organization Address [facility] Co de Phone Number [facility] Department [place] [employer] [place] [address] * POCT glucose (06/10/2025 7:34 AM CDT) Glucose, POC 96 70 - 199 mg/dL Blood 06/10/2025 7:34 AM CDT 06/10/2025 7:34 AM CDT Addy Tapia MD LAB POCT ORDERABLES - DE VICE Final Result Performing Organization Address [facility] Co de Phone Number [facility] Department [place] [address] * Potassium, whole blood (06/10/2025 5:01 AM CDT) Pathologist [facility] Potassium, bld 4.9 3.3 - 4.9 mmol/L Blood 06/10/2025 5:01 AM CDT 06/10/2025 5:55 AM CDT Bar Gamble MD LAB BLOOD ORDERABLES Final R esult Performing Organization Address [facility] Co ma Phone Number [facility] [place] [address] * Tacrolimus level trough (06/10/2025 4:52 AM CDT) Pathologist [facility] Tacrolimus trough 8.4 ng/mL Comment: Interpretive Data Testing performed by liquid chromatography-tandem mass spectrometry. Therapeutic concentrations vary depending on type of transplanted organ and time elapsed since transplant. Typical trough concentrations range from 5-15 ng/mL. This test was developed and its performance characteristics determined by the [facility] consistent with CLIA requirements. This test has not been cleared or approved by the [place] Food and Drug administration. Current interpretive data last reviewed 2020. Blood 06/10/2025 4:52 AM CDT 06/10/2025 6:02 AM CDT Zev Cowart MD PhD LAB BLOOD ORDERABLES Fi nal Result Performing Organization Address City/[facility]/ZIP Co de Phone Number [facility] Department [place] [address] * (ABNORMAL) POCT glucose (06/09/2025 7:56 PM CDT) Pathologist [facility] Glucose, POC 204(H) 70 - 199 mg/dL Blood 06/09/2025 7:56 PM CDT 06/09/2025 7:56 PM CDT us Addy Tapia MD LAB POCT ORDERABLES - DE VICE Final Result Performing Organization Address [facility] Co de Phone Number [facility] Department [place] [address] * (ABNORMAL) Potassium, whole blood (06/09/2025 7:55 PM CDT) [facility] Potassium, bld 5.6(H) 3.3 - 4.9 mmol/L Blood 06/09/2025 7:55 PM CDT 06/09/2025 8:02 PM CDT us Bar Gamble MD LAB BLOOD ORDERABLES Final R esult Performing Organization Address [facility] Co de Phone Number [facility] Department [place] [address] * (ABNORMAL) eGFR (06/09/2025 7:49 PM CDT) [...] 06/09/2025 8:11 PM CDT us Libia Suarez NURSE FIRST AID LAB BLOOD ORDERABLES Final Re sult [facility] One [facility] Department [place] [address] * (ABNORMAL) CBC without differential (06/09/2025 7:49 PM CDT) WBC 10.31(H) 3.80 - 9.90 K/cumm Hgb 7.2(L) 13.0 - 17.5 g/dL [facility] Hct 22.2(L) 38.9 - 50.3 % [facility] Plt 316 150 - 400 K/cumm [facility] MPV 10.5 9.1 - 12.3 fL [facility] RBC 2.60(L) 4.30 - 5.80 M/cumm [facility] MCV 85.4 81.3 - 96.4 fL [facility] MCH 27.7 27.1 - 33.3 pg [facility] MCHC 32.4 32.3 - 35.7 g/dL [facility] RDW CV 16.8(H) 11.1 - 14.9 % [facility] RDW SD 49.4(H) 35.7 - 48.1 fL [facility] NRBC abs 0.00 0.00 - 0.01 K/cumm [facility] Blood 06/09/2025 7:49 PM CDT 06/09/2025 8:11 PM CDT Dinorah Kahn NURSE FIRST AID LAB BLOOD ORDERABLES Final Result Performing Organization Address [facility] Co de Phone Number [facility] [place] [address] * Phosphorus (06/09/2025 7:49 PM CDT) Phosphorus, pl 3.5 2.3 - 4.5 mg/dL Blood 06/09/2025 7:49 PM CDT 06/09/2025 8:11 PM CDT Libia Suarez NURSE FIRST AID LAB BLOOD ORDERABLES Final Re sult Performing Organization Address [facility] Co de Phone Number [facility] [place] [address] * Magnesium (06/09/2025 7:49 PM CDT) Magnesium 1.9 1.4 - 2.5 mg/dL Blood 06/09/2025 7:49 PM CDT 06/09/2025 8:11 PM CDT Dinorah Kahn NURSE FIRST AID LAB BLOOD ORDERABLES Final Result Performing Organization Address [facility] Co de Phone Number [facility] [place] [address] * (ABNORMAL) Hepatic function panel (06/09/2025 7:49 PM CDT) Bilirubin, total 0.4 0.1 - 1.2 mg/dL Bilirubin, direct 0.2 0.1 - 0.3 mg/dL [facility] Protein, pl 5.6(L) 6.5 - 8.5 g/dL [facility] Albumin 3.4(L) 3.5 - 5.0 g/dL [facility] Alk phos 279(H) 40 - 130 Units/L [facility] ALT 49 7 - 55 Units/L [facility] AST 24 10 - 50 Units/L [facility] Blood 06/09/2025 7:49 PM CDT 06/09/2025 8:11 PM CDT Libia Suarez NURSE FIRST AID LAB BLOOD ORDERABLES Final Re sult [facility] One [facility] Department [place] [address] * (ABNORMAL) Basic metabolic panel (06/09/2025 7:49 PM CDT) Pathologist [facility] Sodium 135 135 - 145 mmol/L Potassium, pl 5.6(H) 3.3 - 4.9 mmol/L [facility] Chloride 104 97 - 110 mmol/L [facility] CO2 21(L) 22 - 32 mmol/L [facility] Anion gap 10 2 - 15 mmol/L [facility] BUN 61(H) 6 - 25 mg/dL [facility] Creatinine 1.67(H) 0.80 - 1.30 mg/dL [facility] Glucose 202(H) 70 - 199 mg/dL [facility] Comment: Interpretive Data Fasting glucose >/= [...] 2022. Calcium 9.0 8.5 - 10.3 mg/dL [facility] Blood 06/09/2025 7:49 PM CDT 06/09/2025 8:11 PM CDT Libia Suarez NURSE FIRST AID LAB BLOOD ORDERABLES Final Re sult [facility] [place] [address] * POCT glucose (06/09/2025 4:18 PM CDT) Glucose, POC 189 70 - 199 mg/dL Blood 06/09/2025 4:18 PM CDT 06/09/2025 4:18 PM CDT Addy Tapia MD LAB POCT ORDERABLES - DE VICE Final Result Performing Organization Address [facility] de Phone Number [facility] Department [place] [address] * (ABNORMAL) eGFR (06/09/2025 2:34 PM CDT) [facility] eGFR 47(L) >=60 mL/min/1. 73 m2 Comment: [...] 06/09/2025 3:24 PM CDT us Libia Suarez NP LAB BLOOD ORDERABLES Final Re sult Performing Organization Address City/[facility]/ZIP Co de Phone Number DULCE MARIA ARANDA One [facility] [place] [address] * (ABNORMAL) Comprehensive metabolic panel (06/09/2025 2:34 PM CDT) Sodium 137 135 - 145 mmol/L Potassium, pl 5.6(H) 3.3 - 4.9 mmol/L [facility] Chloride 105 97 - 110 mmol/L [facility] CO2 22 22 - 32 mmol/L [facility] Anion gap 10 2 - 15 mmol/L [facility] BUN 63(H) 6 - 25 mg/dL [facility] Creatinine 1.64(H) 0.80 - 1.30 mg/dL [facility] Glucose 147 70 - 199 mg/dL [facility] Comment: Interpretive Data Fasting glucose >/= [...] 10.3 mg/dL [facility] Bilirubin, total 0.4 0.1 - 1.2 mg/dL [facility] Protein, pl 5.7(L) 6.5 - 8.5 g/dL [facility] Albumin 3.5 3.5 - 5.0 g/dL [facility] Alk phos 277(H) 40 - 130 Units/L [facility] ALT 47 7 - 55 Units/L [facility] AST 20 10 - 50 Units/L [facility] Blood 06/09/2025 2:34 PM CDT 06/09/2025 3:24 PM CDT us Libia Suarez NURSE FIRST AID LAB BLOOD ORDERABLES Final Re sult [facility] [employer] [place] [address] * POCT glucose (06/09/2025 11:42 AM CDT) Glucose, POC 108 70 - 199 mg/dL Blood 06/09/2025 11:4 2 AM CDT 06/09/2025 11:42 AM CDT Addy Tapia MD LAB POCT ORDERABLES - DE VICE Final Result Performing Organization Address [facility] [facility] [place] [address] * POCT glucose (06/09/2025 7:46 AM CDT) Glucose, POC 106 70 - 199 mg/dL Blood 06/09/2025 7:46 AM CDT 06/09/2025 7:46 AM CDT Addy Tapia MD LAB POCT ORDERABLES - DE VICE Final Result Performing Organization Address [facility] [place] [address] * Potassium, whole blood (06/09/2025 5:19 AM CDT) Potassium, bld 4.9 3.3 - 4.9 mmol/L Blood 06/09/2025 5:19 AM CDT 06/09/2025 5:34 AM CDT us Bar Gamble MD LAB BLOOD ORDERABLES Final R esult Performing Organization Address City/[facility]/ZIP Co de Phone Number [facility] [employer] [place] [address] * Tacrolimus level trough (06/09/2025 5:19 AM CDT) Tacrolimus trough 8.2 ng/mL Comment: Interpretive Data Testing performed by liquid chromatography-tandem mass spectrometry. Therapeutic concentrations vary depending on type of transplanted organ and time elapsed since transplant. Typical trough concentrations range from 5-15 ng/mL. This test was developed and its performance characteristics determined by the [facility] consistent with CLIA requirements. This test has not been cleared or approved by the US Food and Drug administration. Current interpretive data last reviewed 2020. Blood 06/09/2025 5:19 AM CDT 06/09/2025 5:37 AM CDT Zev Cowart MD PhD LAB BLOOD ORDERABLES Fi nal Result [facility] Department [place] [address] * (ABNORMAL) eGFR (06/08/2025 8:53 PM CDT) Pathologist [facility] eGFR 47(L) >=60 mL/min/1. 73 m2 Comment: [...] CDT 06/08/2025 9:41 PM CDT Libia Suarez NURSE FIRST AID LAB BLOOD ORDERABLES Final Re sult [facility] [place] [address] * (ABNORMAL) CBC without differential (06/08/2025 8:53 PM CDT) WBC 10.14(H) 3.80 - 9.90 K/cumm Hgb 7.5(L) 13.0 - 17.5 g/dL [facility] Hct 23.4(L) 38.9 - 50.3 % [facility] Plt 343 150 - 400 K/cumm [facility] MPV 11.0 9.1 - 12.3 fL [facility] RBC 2.77(L) 4.30 - 5.80 M/cumm [facility] MCV 84.5 81.3 - 96.4 fL [facility] MCH 27.1 27.1 - 33.3 pg [facility] MCHC 32.1(L) 32.3 - 35.7 g/dL [facility] RDW CV 16.8(H) 11.1 - 14.9 % [facility] RDW SD 48.9(H) 35.7 - 48.1 fL [facility] NRBC abs 0.00 0.00 - 0.01 K/cumm [facility] Blood 06/08/2025 8:53 PM CDT 06/08/2025 9:41 PM CDT Dinorah Kahn NURSE FIRST AID LAB BLOOD ORDERABLES Final Result [facility] [employer] [place] [address] * Phosphorus (06/08/2025 8:53 PM CDT) Phosphorus, pl 3.3 2.3 - 4.5 mg/dL Blood 06/08/2025 8:53 PM CDT 06/08/2025 9:41 PM CDT Libia Suarez NURSE FIRST AID LAB BLOOD ORDERABLES Final Re sult [facility] [employer] [place] [address] * Magnesium (06/08/2025 8:53 PM CDT) Pathologist [facility] Magnesium 2.2 1.4 - 2.5 mg/dL Blood 06/08/2025 8:53 PM CDT 06/08/2025 9:41 PM CDT Dinorah Kahn NURSE FIRST AID LAB BLOOD ORDERABLES Final Result Performing Organization Address [facility] Co de Phone Number [facility] [place] [address] * (ABNORMAL) Hepatic function panel (06/08/2025 8:53 PM CDT) Bilirubin, total 0.3 0.1 - 1.2 mg/dL Bilirubin, direct 0.2 0.1 - 0.3 mg/dL [facility] Protein, pl 5.9(L) 6.5 - 8.5 g/dL [facility] Albumin 3.6 3.5 - 5.0 g/dL [facility] Alk phos 305(H) 40 - 130 Units/L [facility] ALT 51 7 - 55 Units/L [facility] AST 23 10 - 50 Units/L [facility] Blood 06/08/2025 8:53 PM CDT 06/08/2025 9:41 PM CDT Libia Suarez NURSE FIRST AID LAB BLOOD ORDERABLES Final Re sult Performing Organization Address [facility]/ZIP Co de Phone Number [place], [place] [id number] * (ABNORMAL) Basic metabolic panel (06/08/2025 8:53 PM CDT) Sodium 136 135 - 145 mmol/L Potassium, pl 5.8(H) 3.3 - 4.9 mmol/L [facility] Chloride 106 97 - 110 mmol/L [facility] CO2 21(L) 22 - 32 mmol/L [facility] Anion gap 9 2 - 15 mmol/L [facility] BUN 60(H) 6 - 25 mg/dL [facility] Creatinine 1.64(H) 0.80 - 1.30 mg/dL [facility] Glucose 258(H) 70 - 199 mg/dL [facility] Comment: Interpretive Data Fasting glucose >/= [...] 2022. Calcium 9.2 8.5 - 10.3 mg/dL [facility] Blood 06/08/2025 8:53 PM CDT 06/08/2025 9:41 PM CDT us Libia Suarez NP LAB BLOOD ORDERABLES Final Re sult [facility] [place] [address] * (ABNORMAL) POCT glucose (06/08/2025 7:57 PM CDT) Glucose, POC 260(H) 70 - 199 mg/dL Blood 06/08/2025 7:57 PM CDT 06/08/2025 7:57 PM CDT Addy Tapia MD LAB POCT ORDERABLES - DE VICE Final Result [facility] Department [place] [address] * (ABNORMAL) POCT glucose (06/08/2025 5:15 PM CDT) Glucose, POC 216(H) 70 - 199 mg/dL Blood 06/08/2025 5:15 PM CDT 06/08/2025 5:15 PM CDT [facility] Jam[facility] Tapia MD LAB POCT ORDERABLES - DE VICE Final Result Performing Organization Address [facility] Co de Phone Number [facility] Radha [facility] Department [place] [address] * XR Chest PA Lateral 2 Views [...] signed by: Raman Saavedra M.D. Libia Suarez NURSE FIRST AID IMG XR PROCEDURES Final Resul t * POCT glucose (06/08/2025 12:12 PM CDT) Glucose, POC 194 70 - 199 mg/dL Blood 06/08/2025 12:1 2 PM CDT 06/08/2025 12:12 PM CDT Addy Tapia MD LAB POCT ORDERABLES - DE VICE Final Result Performing Organization Address [facility] Co de Phone Number [facility] Department [place] [address] * POCT glucose (06/08/2025 8:04 AM CDT) Glucose, POC 113 70 - 199 mg/dL Blood 06/08/2025 8:04 AM CDT 06/08/2025 8:04 AM CDT Addy Tapia MD LAB POCT ORDERABLES - DE VICE Final Result Performing Organization Address [facility] Co ma Phone Number [facility] Department [place] [address] * Tacrolimus level trough (06/08/2025 5:50 AM CDT) Tacrolimus trough 7.3 ng/mL Comment: Interpretive Data Testing performed by liquid chromatography-tandem mass spectrometry. Therapeutic concentrations vary depending on type of transplanted organ and time elapsed since transplant. Typical trough concentrations range from 5-15 ng/mL. This test was developed and its performance characteristics determined by the [facility] consistent with CLIA requirements. This test has not been cleared or approved by the [place] Food and Drug administration. Current interpretive data last reviewed 2020. Blood 06/08/2025 5:50 AM CDT 06/08/2025 6:33 AM CDT Zev Cowart MD PhD LAB BLOOD ORDERABLES Fi nal Result Performing Organization Address City/[facility] Co de Phone Number [facility] [place] [address] * Antibody identification (06/07/2025 11:33 PM CDT) [facility] Antibody ID 1 Anti-CD38 Comment:Panreactive -CD38 on reagent RBCs reacting with anti-CD38 therapy. DTT treatment removes cell surface CD38 and allows detection of common clinically significant antibodies except those against [place] antigens. TRANSFUSION 2015;55;[id number] Blood 06/07/2025 11:3 3 PM CDT 06/07/2025 11:33 PM CDT Dinorah Kahn NURSE FIRST AID LAB BLOOD BANK TEST ORDERAB LES Final Result Performing Organization Address [facility] Co [facility] Phone Number [facility] [employer] [place] [address] * (ABNORMAL) eGFR (06/07/2025 9:26 PM CDT) [facility] eGFR 50(L) >=60 mL/min/1. 73 m2 Comment: [...] CDT 06/07/2025 9:53 PM CDT Libia Suarez NURSE FIRST AID LAB BLOOD ORDERABLES Final Re sult Performing Organization Address [facility] Co de Phone Number [facility] [place] [address] * (ABNORMAL) CBC without differential (06/07/2025 9:26 PM CDT) WBC 11.29(H) 3.80 - 9.90 K/cumm Hgb 7.2(L) 13.0 - 17.5 g/dL [facility] Hct 22.6(L) 38.9 - 50.3 % [facility] Plt 306 150 - 400 K/cumm [facility] MPV 10.9 9.1 - 12.3 fL [facility] RBC 2.65(L) 4.30 - 5.80 M/cumm [facility] MCV 85.3 81.3 - 96.4 fL [facility] MCH 27.2 27.1 - 33.3 pg [facility] MCHC 31.9(L) 32.3 - 35.7 g/dL [facility] RDW CV 16.5(H) 11.1 - 14.9 % [facility] RDW SD 47.3 35.7 - 48.1 fL [facility] NRBC abs 0.00 0.00 - 0.01 K/cumm [facility] Blood 06/07/2025 9:26 PM CDT 06/07/2025 9:53 PM CDT Dinorah Kahn NURSE FIRST AID LAB BLOOD ORDERABLES Final Result Performing Organization Address [facility]/ZIP Co de Phone Number [facility] [place] [address] * (ABNORMAL) Type and screen (06/07/2025 9:26 PM CDT) [facility] ABO Rh O Positive Poppy, indirect Positive(A) [facility] Blood 06/07/2025 9:26 PM CDT 06/07/2025 10:14 PM CDT Narrative [facility] - 06/07/2025 11:33 PM CDT Has the patient had Daratumumab or Isatuximab in the past 6 months?->Unknown Dinorah Kahn NP LAB BLOOD BANK TEST ORDERAB LES Final Result [facility] [place] [address] * Phosphorus (06/07/2025 9:26 PM CDT) [facility] Phosphorus, pl 2.9 2.3 - 4.5 mg/dL Blood 06/07/2025 9:26 PM CDT 06/07/2025 9:53 PM CDT Libia Suarez NURSE FIRST AID LAB BLOOD ORDERABLES Final Re sult Performing Organization Address City/[facility]/ZIP Co de Phone Number [facility] Department [place] [address] * Magnesium (06/07/2025 9:26 PM CDT) [facility] Magnesium 1.8 1.4 - 2.5 mg/dL Blood 06/07/2025 9:26 PM CDT 06/07/2025 9:53 PM CDT Dinorah Kahn NP LAB BLOOD ORDERABLES Final Result Performing Organization Address [facility] Co de Phone Number [facility] Department [place] [address] * (ABNORMAL) Hepatic function panel (06/07/2025 9:26 PM CDT) [facility] Bilirubin, total 0.3 0.1 - 1.2 mg/dL Bilirubin, direct 0.2 0.1 - 0.3 mg/dL [facility] Protein, pl 5.5(L) 6.5 - 8.5 g/dL [facility] Albumin 3.5 3.5 - 5.0 g/dL [facility] Alk phos 286(H) 40 - 130 Units/L [facility] ALT 53 7 - 55 Units/L [facility] AST 23 10 - 50 Units/L [facility] Blood 06/07/2025 9:26 PM CDT 06/07/2025 9:53 PM CDT Libia Suarez NURSE FIRST AID LAB BLOOD ORDERABLES Final Re sult [facility] Department [place] [address] * (ABNORMAL) Basic metabolic panel (06/07/2025 9:26 PM CDT) [facility] Sodium 140 135 - 145 mmol/L Potassium, pl 5.8(H) 3.3 - 4.9 mmol/L [facility] Chloride 111(H) 97 - 110 mmol/L [facility] CO2 21(L) 22 - 32 mmol/L [facility] Anion gap 8 2 - 15 mmol/L [facility] BUN 63(H) 6 - 25 mg/dL [facility] Creatinine 1.57(H) 0.80 - 1.30 mg/dL [facility] Glucose 166 70 - 199 mg/dL [facility] Comment: Interpretive Data Fasting glucose >/= [...] 2022. Calcium 9.1 8.5 - 10.3 mg/dL [facility] Blood 06/07/2025 9:26 PM CDT 06/07/2025 9:53 PM CDT iLbia Suarez NP LAB BLOOD ORDERABLES Final Re sult Performing Organization Address City/[facility] Co de Phone Number [facility] [employer] [place] [address] * POCT glucose (06/07/2025 8:24 PM CDT) Glucose, POC 168 70 - 199 mg/dL Blood 06/07/2025 8:24 PM CDT 06/07/2025 8:24 PM CDT Addy Tapia MD LAB POCT ORDERABLES - DE VICE Final Result Performing Organization Address [facility] Co de Phone Number [facility] [employer] [place] [address] * POCT glucose (06/07/2025 3:59 PM CDT) Glucose, POC 158 70 - 199 mg/dL Blood 06/07/2025 3:59 PM CDT 06/07/2025 3:59 PM CDT Addy Tapia MD LAB POCT ORDERABLES - DE VICE Final Result Performing Organization Address [facility] Co de Phone Number [facility] [employer] [place] [address] * (ABNORMAL) POCT glucose (06/07/2025 11:38 AM CDT) Glucose, POC 208(H) 70 - 199 mg/dL Blood 06/07/2025 11:3 8 AM CDT 06/07/2025 11:38 AM CDT Addy Tapia MD LAB POCT ORDERABLES - DE VICE Final Result Performing Organization Address [facility] Phone Number [facility] [employer] [place] [address] * POCT glucose (06/07/2025 7:52 AM CDT) Glucose, POC 138 70 - 199 mg/dL Blood 06/07/2025 7:52 AM CDT 06/07/2025 7:52 AM CDT Addy Tapia MD LAB POCT ORDERABLES - DE VICE Final Result Performing Organization Address [facility] Phone Number [facility] [place] [address] * Potassium, whole blood (06/07/2025 5:36 AM CDT) Potassium, bld 4.6 3.3 - 4.9 mmol/L Blood 06/07/2025 5:36 AM CDT 06/07/2025 6:01 AM CDT Bar Gamble MD LAB BLOOD ORDERABLES Final R esult Performing Organization Address [facility] [place] [address] * Tacrolimus level trough (06/07/2025 5:36 AM CDT) Tacrolimus trough 6.6 ng/mL Comment: Interpretive Data Testing performed by liquid chromatography-tandem mass spectrometry. Therapeutic concentrations vary depending on type of transplanted organ and time elapsed since transplant. Typical trough concentrations range from 5-15 ng/mL. This test was developed and its performance characteristics determined by the [facility] consistent with CLIA requirements. This test has not been cleared or approved by the [place] Food and Drug administration. Current interpretive data last reviewed 2020. Blood 06/07/2025 5:36 AM CDT 06/07/2025 6:18 AM CDT us Zev Cowart MD PhD LAB BLOOD ORDERABLES Fi nal Result Performing Organization Address City/[facility]/ZIP Co de Phone Number [facility] [place] [address] * (ABNORMAL) Potassium, whole blood (06/06/2025 9:52 PM CDT) Pathologist [facility] Potassium, bld 5.1(H) 3.3 - 4.9 mmol/L Blood 06/06/2025 9:52 PM CDT 06/06/2025 10:03 PM CDT us Bar Gamble MD LAB BLOOD ORDERABLES Final R esult Performing Organization Address [facility] Co de Phone Number [facility] [place] [address] * (ABNORMAL) CBC without differential (06/06/2025 9:52 PM CDT) [facility] WBC 10.35(H) 3.80 - 9.90 K/cumm Hgb 7.6(L) 13.0 - 17.5 g/dL [facility] Hct 23.7(L) 38.9 - 50.3 % [facility] Plt 306 150 - 400 K/cumm [facility] MPV 11.0 9.1 - 12.3 fL [facility] RBC 2.83(L) 4.30 - 5.80 M/cumm [facility] MCV 83.7 81.3 - 96.4 fL [facility] MCH 26.9(L) 27.1 - 33.3 pg [facility] MCHC 32.1(L) 32.3 - 35.7 g/dL [facility] RDW CV 16.6(H) 11.1 - 14.9 % [facility] RDW SD 47.2 35.7 - 48.1 fL [facility] NRBC abs 0.00 0.00 - 0.01 K/cumm [facility] Blood 06/06/2025 9:52 PM CDT 06/06/2025 10:05 PM CDT Chelsy Mckenzie NURSE FIRST AID LAB BLOOD ORDERABLES Final Resul t Performing Organization Address [facility] Co de Phone Number [facility] [employer] [place] [address] * (ABNORMAL) POCT glucose (06/06/2025 8:10 PM CDT) Glucose, POC 239(H) 70 - 199 mg/dL Blood 06/06/2025 8:1 0 PM CDT 06/06/2025 8:10 PM CDT Addy Tapia MD LAB POCT ORDERABLES - DE VICE Final Result Performing Organization Address [facility] de Phone Number [facility] [employer] [place] [address] * G6PD qualitative with reflex to quantitative (06/06/2025 8:02 PM CDT) Pathologist [facility] G6PD Normal Normal Comment: Interp data: G6PD activity should be interpreted in the context of a patient's hematocrit. Hematocrit < 20% may lead to a falsely deficient result, while hematocrit > 50% may lead to a falsely normal result. Current interpretive data was last revised on 2020. Blood 06/06/2025 8:02 PM CDT 06/06/2025 8:46 PM CDT us Farida Flores NURSE FIRST AID LAB BLOOD ORDERABLES Final R esult Performing Organization Address [facility] Co de Phone Number [facility] [employer] [place] [address] * (ABNORMAL) eGFR (06/06/2025 8:02 PM CDT) [...] CDT 06/06/2025 8:46 PM CDT Libia Suarez NURSE FIRST AID LAB BLOOD ORDERABLES Final Re sult [facility] One [facility] [place] [address] * Immunoglobulin free light chains (06/06/2025 8:02 PM CDT) Pathologist [facility] Onida/Lambda ratio [facility] 0.35 0.26 - 1.65 Comment: Interpretive Data The Binding Site FreeLite assay procedure was used. Results from different manufacturers or methods may not be comparable. Serial testing should be performed using the same methods and instrumentation. Current Interpretive Data was last revised on 2024. Onida free light chain [facility] 0.39 0.33 - 1.94 mg/dL [facility] Comment: Interpretive Data The Binding Site FreeLite assay procedure was used. Results from different manufacturers or methods may not be comparable. Serial testing should be performed using the same methods and instrumentation. Current Interpretive Data was last revised on 2024. Lambda free light chain [facility] 1.13 0.57 - 2.63 mg/dL [facility] Comment: Interpretive Data The Binding Site FreeLite assay procedure was used. Results from different manufacturers or methods may not be comparable. Serial testing should be performed using the same methods and instrumentation. Current Interpretive Data was last revised on 2024. Blood 06/06/2025 8:02 PM CDT 06/06/2025 8:46 PM CDT us Farida Flores NP LAB BLOOD ORDERABLES Final R esult [facility] One [facility] Department [place] [address] * (ABNORMAL) CBC without differential (06/06/2025 8:02 PM CDT) WBC 10.24(H) 3.80 - 9.90 K/cumm Hgb 7.1(L) 13.0 - 17.5 g/dL [facility] Hct 21.5(L) 38.9 - 50.3 % [facility] Plt 300 150 - 400 K/cumm [facility] MPV 10.9 9.1 - 12.3 fL [facility] RBC 2.58(L) 4.30 - 5.80 M/cumm [facility] MCV 83.3 81.3 - 96.4 fL [facility] MCH 27.5 27.1 - 33.3 pg [facility] MCHC 33.0 32.3 - 35.7 g/dL [facility] RDW CV 16.6(H) 11.1 - 14.9 % [facility] RDW SD 47.5 35.7 - 48.1 fL [facility] NRBC abs 0.00 0.00 - 0.01 K/cumm [facility] Blood 06/06/2025 8:02 PM CDT 06/06/2025 8:46 PM CDT Dinorah Kahn NURSE FIRST AID LAB BLOOD ORDERABLES Final Result Performing Organization Address [facility] Co de Phone Number [facility] [place] [address] * Phosphorus (06/06/2025 8:02 PM CDT) Phosphorus, pl 3.4 2.3 - 4.5 mg/dL Blood 06/06/2025 8:02 PM CDT 06/06/2025 8:46 PM CDT Libia Suarez NURSE FIRST AID LAB BLOOD ORDERABLES Final Re sult Performing Organization Address [facility] Co de Phone Number [facility] [place] [address] * Magnesium (06/06/2025 8:02 PM CDT) Magnesium 1.8 1.4 - 2.5 mg/dL Blood 06/06/2025 8:02 PM CDT 06/06/2025 8:46 PM CDT Dinorah Kahn NURSE FIRST AID LAB BLOOD ORDERABLES Final Result Performing Organization Address [facility] de Phone Number [facility] [place] [address] * (ABNORMAL) Hepatic function panel (06/06/2025 8:02 PM CDT) Bilirubin, total 0.3 0.1 - 1.2 mg/dL Bilirubin, direct <0.2 0.1 - 0.3 mg/dL [facility] Protein, pl 5.2(L) 6.5 - 8.5 g/dL [facility] Albumin 3.3(L) 3.5 - 5.0 g/dL [facility] Alk phos 282(H) 40 - 130 Units/L [facility] ALT 53 7 - 55 Units/L [facility] AST 19 10 - 50 Units/L [facility] Blood 06/06/2025 8:02 PM CDT 06/06/2025 8:46 PM CDT Libia Suarez NP LAB BLOOD ORDERABLES Final Re sult Performing Organization Address City/State/[facility] Co de Phone Number [facility] [place] [address] * (ABNORMAL) Basic metabolic panel (06/06/2025 8:02 PM CDT) Sodium 136 135 - 145 mmol/L Potassium, pl 5.5(H) 3.3 - 4.9 mmol/L [facility] Chloride 106 97 - 110 mmol/L [facility] CO2 22 22 - 32 mmol/L [facility] Anion gap 8 2 - 15 mmol/L [facility] BUN 70(H) 6 - 25 mg/dL [facility] Creatinine 1.73(H) 0.80 - 1.30 mg/dL [facility] Glucose 229(H) 70 - 199 mg/dL [facility] Comment: Interpretive Data Fasting glucose >/= [...] 2022. Calcium 8.7 8.5 - 10.3 mg/dL [facility] Blood 06/06/2025 8:02 PM CDT 06/06/2025 8:46 PM CDT Libia Suarze NP LAB BLOOD ORDERABLES Final Re sult Performing Organization Address City/[facility]/ZIP Co de Phone Number [facility] [employer] [place] [address] * (ABNORMAL) POCT glucose (06/06/2025 4:10 PM CDT) Glucose, POC 200(H) 70 - 199 mg/dL Blood 06/06/2025 4:10 PM CDT 06/06/2025 4:10 PM CDT Addy Tapia MD LAB POCT ORDERABLES - DE VICE Final Result Performing Organization Address [facility] Co de Phone Number [facility] [employer] [place] [address] * (ABNORMAL) POCT glucose (06/06/2025 12:12 PM CDT) Glucose, POC 211(H) 70 - 199 mg/dL Blood 06/06/2025 12:1 2 PM CDT 06/06/2025 12:12 PM CDT Addy Tapia MD LAB POCT ORDERABLES - DE VICE Final Result Performing Organization Address [facility]/ZIP Co de Phone Number [facility] [employer] [place] [address] * POCT glucose (06/06/2025 7:59 AM CDT) Glucose, POC 143 70 - 199 mg/dL Blood 06/06/2025 7:59 AM CDT 06/06/2025 7:59 AM CDT Addy Tapia MD LAB POCT ORDERABLES - DE VICE Final Result Performing Organization Address [facility]/ZIP Co de Phone Number [facility] [place] [address] * Potassium, whole blood (06/06/2025 5:07 AM CDT) Potassium, bld 4.5 3.3 - 4.9 mmol/L Blood 06/06/2025 5:07 AM CDT 06/06/2025 5:24 AM CDT Bar Gamble MD LAB BLOOD ORDERABLES Final R esult Performing Organization Address [facility] de Phone Number [facility] Department [place] [address] * Tacrolimus level trough (06/06/2025 5:07 AM CDT) Tacrolimus trough 7.4 ng/mL Comment: Interpretive Data Testing performed by liquid chromatography-tandem mass spectrometry. Therapeutic concentrations vary depending on type of transplanted organ and time elapsed since transplant. Typical trough concentrations range from 5-15 ng/mL. This test was developed and its performance characteristics determined by the [facility] consistent with CLIA requirements. This test has not been cleared or approved by the US Food and Drug administration. Current interpretive data last reviewed 2020. Blood 06/06/2025 5:07 AM CDT 06/06/2025 5:31 AM CDT Zev Cowart MD PhD LAB BLOOD ORDERABLES Fi nal Result Performing Organization Address [facility] de Phone Number [facility] Department [place] [employer] [place] [address] * (ABNORMAL) Potassium, whole blood (06/05/2025 10:09 PM CDT) Potassium, bld 5.2(H) 3.3 - 4.9 mmol/L Blood 06/05/2025 10:0 9 PM CDT 06/05/2025 10:22 PM CDT Bar Gamble MD LAB BLOOD ORDERABLES Final R esult Performing Organization Address [facility] de Phone Number DULCE MARIA [facility] Department [place] [address] * (ABNORMAL) eGFR (06/05/2025 10:02 PM CDT) Pathologist [facility] eGFR 47(L) >=60 mL/min/1. 73 m2 Comment: [...] CDT 06/05/2025 10:29 PM CDT Libia Suarez NP LAB BLOOD ORDERABLES Final Re sult Performing Organization Address [facility] Co de Phone Number [facility] [place] [address] * (ABNORMAL) CBC without differential (06/05/2025 10:02 PM CDT) Pathologist [facility] WBC 13.52(H) 3.80 - 9.90 K/cumm Hgb 7.7(L) 13.0 - 17.5 g/dL [facility] Hct 23.8(L) 38.9 - 50.3 % [facility] Plt 319 150 - 400 K/cumm [facility] MPV 10.8 9.1 - 12.3 fL [facility] RBC 2.87(L) 4.30 - 5.80 M/cumm [facility] MCV 82.9 81.3 - 96.4 fL [facility] MCH 26.8(L) 27.1 - 33.3 pg [facility] MCHC 32.4 32.3 - 35.7 g/dL [facility] RDW CV 16.4(H) 11.1 - 14.9 % [facility] RDW SD 46.3 35.7 - 48.1 fL [facility] NRBC abs 0.00 0.00 - 0.01 K/cumm [facility] Blood 06/05/2025 10:0 2 PM CDT 06/05/2025 10:29 PM CDT Dinorah Kahn NURSE FIRST AID LAB BLOOD ORDERABLES Final Result [facility] [place] [address] * Phosphorus (06/05/2025 10:02 PM CDT) Phosphorus, pl 3.4 2.3 - 4.5 mg/dL Blood 06/05/2025 10:0 2 PM CDT 06/05/2025 10:29 PM CDT Libia Suarez NURSE FIRST AID LAB BLOOD ORDERABLES Final Re sult [facility] [employer] [place] [address] * Magnesium (06/05/2025 10:02 PM CDT) Magnesium 2.0 1.4 - 2.5 mg/dL Blood 06/05/2025 10:0 2 PM CDT 06/05/2025 10:29 PM CDT Dinorah Kahn NURSE FIRST AID LAB BLOOD ORDERABLES Final Result Performing Organization Address [facility]/ZIP Co de Phone Number [facility] [place] [address] * (ABNORMAL) Hepatic function panel (06/05/2025 10:02 PM CDT) Bilirubin, total 0.3 0.1 - 1.2 mg/dL Bilirubin, direct 0.2 0.1 - 0.3 mg/dL [facility] Protein, pl 5.5(L) 6.5 - 8.5 g/dL [facility] Albumin 3.4(L) 3.5 - 5.0 g/dL [facility] Alk phos 317(H) 40 - 130 Units/L [facility] ALT 60(H) 7 - 55 Units/L [facility] AST 25 10 - 50 Units/L [facility] Blood 06/05/2025 10:0 2 PM CDT 06/05/2025 10:29 PM CDT Libia Suarez NURSE FIRST AID LAB BLOOD ORDERABLES Final Re sult Performing Organization Address [facility] Co de Phone Number [facility] Department [place] [address] * (ABNORMAL) Basic metabolic panel (06/05/2025 10:02 PM CDT) Pathologist [facility] Sodium 135 135 - 145 mmol/L Potassium, pl 5.5(H) 3.3 - 4.9 mmol/L [facility] Chloride 105 97 - 110 mmol/L [facility] CO2 21(L) 22 - 32 mmol/L [facility] Anion gap 9 2 - 15 mmol/L [facility] BUN 70(H) 6 - 25 mg/dL [facility] Creatinine 1.65(H) 0.80 - 1.30 mg/dL [facility] Glucose 242(H) 70 - 199 mg/dL [facility] Comment: Interpretive Data Fasting glucose >/= [...] 2022. Calcium 8.7 8.5 - 10.3 mg/dL [facility] Blood 06/05/2025 10:0 2 PM CDT 06/05/2025 10:29 PM CDT Libia Suarez NP LAB BLOOD ORDERABLES Final Re sult Performing Organization Address [facility] de Phone Number [facility] [place] [address] * (ABNORMAL) POCT glucose (06/05/2025 7:54 PM CDT) Glucose, POC 237(H) 70 - 199 mg/dL Blood 06/05/2025 7:54 PM CDT 06/05/2025 7:54 PM CDT Result [facility] Addy Tapia MD LAB POCT ORDERABLES - DE VICE Final Result Performing Organization Address [facility] Co de Phone Number [facility] Department [place] [employer] [place] [address] * POCT glucose (06/05/2025 4:10 PM CDT) Glucose, POC 190 70 - 199 mg/dL Blood 06/05/2025 4:10 PM CDT 06/05/2025 4:10 PM CDT Addy Tapia MD LAB POCT ORDERABLES - DE VICE Final Result Performing Organization Address [facility]/ZIP Co de Phone Number DULCE MARIA [facility] Department [place] [address] * XR Chest 1 View (06/05/2025 3:09 [...] by: Kristian Hagan M.D. us Sheila Pollard NURSE FIRST AID IMG XR PROCEDURES Final R esult * POCT glucose (06/05/2025 1:33 PM CDT) Glucose, POC 138 70 - 199 mg/dL Blood 06/05/2025 1:33 PM CDT 06/05/2025 1:33 PM CDT us Addy Tapia MD LAB POCT ORDERABLES - DE VICE Final Result DULCE MARIA [facility] [place] [address] * TRANSTHORACIC ECHO (TTE) LIMITED/FOLLOW UP W LTD DOPPLER/CF WO CONTRAST (06/05/2025 12:57 PM CDT) Estimated EF 70-75 % CONS SCIMAGE EF Mod BP 63 % CONS SCIMAGE Anatomical Region Laterality Modality Ultrasound 06/05/2025 12:2 5 PM CDT Narrative 06/05/2025 2:30 PM CDT [facility] [place] [address] Transthoracic Echocardiographic Report Patient Name: GOSIA ZUNIGA W : 1965 (60y 1m) Gender: M Study Date: 06/05/2025 12:25:00 PM Ht(Inch): 72 Wt(Lb): 175.93 BSA: 2.01 [employer]ishing Floats As[employer]er: SHAQ Terry Location: [id number] Order Provider: LIBIA SUAREZ Heart Rate: 88 [...] Procedure Note Pranav Moura MD - 06/05/2025 [facility] [place] [address] Transthoracic Echocardiographic Report Patient Name: GOSIA ZUNIGA W : 1965 (60y 1m) Gender: M Study Date: 06/05/2025 12:25:00 PM Ht(Inch): 72 Wt(Lb): 175.93 BSA: 2.01 Fishing Floats Assembler: Daiana Gil [facility] Location: [id number] Order Provider:LIBIA SUAREZ Heart Rate: 88 BMI: 23.86 BP: 98 / 57 Ref Provider: LIBIA SUAREZ Fellow: Aelx Glass MD PROCEDURES: Echocardiographic Report: Limited transthoracic [...] M.D. 06/05/2025 2:29:56 PM CDT Libia Suarez NURSE FIRST AID CV ECHO PROCEDURES Final Resu lt * POCT glucose (06/05/2025 7:51 AM CDT) Glucose, POC 122 70 - 199 mg/dL Blood 06/05/2025 7:51 AM CDT 06/05/2025 7:51 AM CDT Addy Tapia MD LAB POCT ORDERABLES - DE VICE Final Result Performing Organization Address [facility] Co de Phone Number [facility] Department [place] [employer] [place] [address] * Potassium, whole blood (06/05/2025 4:39 AM CDT) Potassium, bld 4.6 3.3 - 4.9 mmol/L Blood 06/05/2025 4:39 AM CDT 06/05/2025 4:58 AM CDT Bar Gamble MD LAB BLOOD ORDERABLES Final R esult Performing Organization Address City/[facility] Co de Phone Number [facility] Department [place] [employer] [place] [address] * Tacrolimus level trough (06/05/2025 4:39 AM CDT) Tacrolimus trough 10.3 ng/mL Comment: Interpretive Data Testing performed by liquid chromatography-tandem mass spectrometry. Therapeutic concentrations vary depending on type of transplanted organ and time elapsed since transplant. Typical trough concentrations range from 5-15 ng/mL. This test was developed and its performance characteristics determined by the [facility] consistent with CLIA requirements. This test has not been cleared or approved by the [place] Food and Drug administration. Current interpretive data last reviewed 2020. Blood 06/05/2025 4:39 AM CDT 06/05/2025 4:58 AM CDT Zev Cowart MD PhD LAB BLOOD ORDERABLES Fi nal Result Performing Organization Address City/[facility]/ZIP Co de Phone Number [facility] Department [place] [address] * (ABNORMAL) Potassium, whole blood (06/04/2025 9:24 PM CDT) Pathologist [facility] Potassium, bld 6.1(H) 3.3 - 4.9 mmol/L Blood 06/04/2025 9:24 PM CDT 06/04/2025 9:38 PM CDT Dinorah Kahn NURSE FIRST AID LAB BLOOD ORDERABLES Final Result [facility] [employer] [place] [address] * (ABNORMAL) POCT glucose (06/04/2025 8:57 PM CDT) Glucose, POC 262(H) 70 - 199 mg/dL Blood 06/04/2025 8:57 PM CDT 06/04/2025 8:57 PM CDT Addy Tapia MD LAB POCT ORDERABLES - DE VICE Final Result Performing Organization Address [facility] Co de Phone Number [facility] [employer] [place] [address] * Antibody identification (06/04/2025 8:01 PM CDT) Pathologist [facility] Antibody ID 1 Anti-CD38 Comment:Panreactive -CD38 on reagent RBCs reacting with anti-CD38 therapy. DTT treatment removes cell surface CD38 and allows detection of common clinically significant antibodies except those against [place] antigens. TRANSFUSION 2015;55;[id number] Blood 06/04/2025 8:01 PM CDT 06/04/2025 8:01 PM CDT Dinorah Kahn LAB BLOOD BANK TEST ORDERAB LES Final Result Performing Organization Address [facility] Co de Phone Number DULCE MARIA [facility] [place] [address] * (ABNORMAL) eGFR (06/04/2025 6:51 PM CDT) [facility] eGFR 43(L) >=60 mL/min/1. 73 m2 Comment: [...] CDT 06/04/2025 7:13 PM CDT Libia Suarez NURSE FIRST AID LAB BLOOD ORDERABLES Final Re sult Performing Organization Address City/[facility]/ZIP Co de Phone Number [facility] [place] [address] * Critical Result Callback Chemistry (06/04/2025 6:51 PM CDT) Date Notified [id number] Time Notified 1952 DULCE MARIA ARANDA TestName Potassium Plas DULCE MARIA ARANDA Called/Read Back Libia ARANDA Credentials RN DULCE MARIA ARANDA Called By RG DULCE MARIA ARANDA Blood 06/04/2025 6:51 PM CDT 06/04/2025 7:13 PM CDT Libia Suarez NP LAB BLOOD ORDERABLES Final Re sult Performing Organization Address [facility] Co de Phone Number [facility] [place] [address] * (ABNORMAL) CBC without differential (06/04/2025 6:51 PM CDT) [facility] WBC 16.62(H) 3.80 - 9.90 K/cumm Hgb 8.1(L) 13.0 - 17.5 g/dL [facility] Hct 24.8(L) 38.9 - 50.3 % [facility] Plt 297 150 - 400 K/cumm [facility] MPV 10.8 9.1 - 12.3 fL [facility] RBC 2.97(L) 4.30 - 5.80 M/cumm [facility] MCV 83.5 81.3 - 96.4 fL [facility] MCH 27.3 27.1 - 33.3 pg [facility] MCHC 32.7 32.3 - 35.7 g/dL [facility] RDW CV 16.1(H) 11.1 - 14.9 % [facility] RDW SD 46.1 35.7 - 48.1 fL [facility] NRBC abs 0.00 0.00 - 0.01 K/cumm [facility] Blood 06/04/2025 6:51 PM CDT 06/04/2025 7:13 PM CDT Dinorah Kahn NP LAB BLOOD ORDERABLES Final Result Performing Organization Address [facility]/[place] [address] * (ABNORMAL) Type and screen (06/04/2025 6:51 PM CDT) Pathologist [facility] ABO Rh O Positive Poppy, indirect Positive(A) [facility] Blood 06/04/2025 6:51 PM CDT 06/04/2025 7:05 PM CDT Narrative [facility] - 06/04/2025 8:02 PM CDT Has the patient had Daratumumab or Isatuximab in the past 6 months?->Unknown Dinorah Kahn NP LAB BLOOD BANK TEST ORDERAB LES Final Result Performing Organization Address [facility] [place] [address] * Phosphorus (06/04/2025 6:51 PM CDT) Pathologist [facility] Phosphorus, pl 3.2 2.3 - 4.5 mg/dL Blood 06/04/2025 6:51 PM CDT 06/04/2025 7:13 PM CDT Libia Suarez NURSE FIRST AID LAB BLOOD ORDERABLES Final Re sult Performing Organization Address [facility] Co de Phone Number [facility] [employer] [place] [address] * Magnesium (06/04/2025 6:51 PM CDT) [facility] Magnesium 2.2 1.4 - 2.5 mg/dL Blood 06/04/2025 6:51 PM CDT 06/04/2025 7:13 PM CDT Dinorah Kahn NURSE FIRST AID LAB BLOOD ORDERABLES Final Result Performing Organization Address [facility] Co de Phone Number [facility] [place] [address] * (ABNORMAL) Hepatic function panel (06/04/2025 6:51 PM CDT) [facility] Bilirubin, total 0.3 0.1 - 1.2 mg/dL Bilirubin, direct <0.2 0.1 - 0.3 mg/dL [facility] Protein, pl 5.6(L) 6.5 - 8.5 g/dL [facility] Albumin 3.5 3.5 - 5.0 g/dL [facility] Alk phos 297(H) 40 - 130 Units/L [facility] ALT 67(H) 7 - 55 Units/L [facility] AST 28 10 - 50 Units/L [facility] Blood 06/04/2025 6:51 PM CDT 06/04/2025 7:13 PM CDT Libia Suarez NURSE FIRST AID LAB BLOOD ORDERABLES Final Re sult Performing Organization Address [facility] Co de Phone Number [facility] [employer] [place] [address] * (ABNORMAL) Basic metabolic panel (06/04/2025 6:51 PM CDT) [facility] Sodium 138 135 - 145 mmol/L Potassium, pl 6.4(C) 3.3 - 4.9 mmol/L [facility] Chloride 106 97 - 110 mmol/L [facility] CO2 21(L) 22 - 32 mmol/L [facility] Anion gap 11 2 - 15 mmol/L [facility] BUN 66(H) 6 - 25 mg/dL [facility] Creatinine 1.76(H) 0.80 - 1.30 mg/dL [facility] Glucose 279(H) 70 - 199 mg/dL [facility] Comment: Interpretive Data Fasting glucose >/= [...] 2022. Calcium 8.9 8.5 - 10.3 mg/dL [facility] Blood 06/04/2025 6:51 PM CDT 06/04/2025 7:13 PM CDT Libia Suarez NURSE FIRST AID LAB BLOOD ORDERABLES Final Re sult [facility] Department of [employer] [place] [address] * POCT glucose (06/04/2025 4:16 PM CDT) Glucose, POC 195 70 - 199 mg/dL Blood 06/04/2025 4:16 PM CDT 06/04/2025 4:16 PM CDT Addy Tapia MD LAB POCT ORDERABLES - DE VICE Final Result [facility] Department [place] [employer] [place] [address] * (ABNORMAL) POCT glucose (06/04/2025 12:15 PM CDT) Glucose, POC 252(H) 70 - 199 mg/dL Blood 06/04/2025 12:1 5 PM CDT 06/04/2025 12:15 PM CDT Addy Tapia MD LAB POCT ORDERABLES - DE VICE Final Result Performing Organization Address [facility] Co de Phone Number [facility] Department [place] [address] * POCT glucose (06/04/2025 7:37 AM CDT) Glucose, POC 111 70 - 199 mg/dL Blood 06/04/2025 7:37 AM CDT 06/04/2025 7:37 AM CDT Addy Tapia MD LAB POCT ORDERABLES - DE VICE Final Result Performing Organization Address [facility] Phone Number [facility] Department [place] [address] * (ABNORMAL) Potassium, whole blood (06/04/2025 5:16 AM CDT) [facility] Potassium, bld 5.1(H) 3.3 - 4.9 mmol/L Blood 06/04/2025 5:16 AM CDT 06/04/2025 5:26 AM CDT Bar Gamble MD LAB BLOOD ORDERABLES Final R esult Performing Organization Address [facility] Co de Phone Number [facility] [place] [address] * Tacrolimus level trough (06/04/2025 5:16 AM CDT) Pathologist [facility] Tacrolimus trough 8.8 ng/mL Comment: Interpretive Data Testing performed by liquid chromatography-tandem mass spectrometry. Therapeutic concentrations vary depending on type of transplanted organ and time elapsed since transplant. Typical trough concentrations range from 5-15 ng/mL. This test was developed and its performance characteristics determined by the [facility] consistent with CLIA requirements. This test has not been cleared or approved by the [place] Food and Drug administration. Current interpretive data last reviewed 2020. Blood 06/04/2025 5:16 AM CDT 06/04/2025 5:32 AM CDT us Zev Cowart MD PhD LAB BLOOD ORDERABLES Fi nal Result [facility] [place] [address] * (ABNORMAL) Potassium, whole blood (06/03/2025 10:35 PM CDT) Potassium, bld 5.4(H) 3.3 - 4.9 mmol/L Blood 06/03/2025 10:3 5 PM CDT 06/03/2025 10:41 PM CDT us Dinorah Kahn NURSE FIRST AID LAB BLOOD ORDERABLES Final Result Performing Organization Address City/[facility] Co de Phone Number [facility] [employer] [place] [address] * (ABNORMAL) eGFR (06/03/2025 8:29 PM CDT) eGFR 43(L) >=60 mL/min/1. 73 [...] CDT 06/03/2025 8:49 PM CDT Libia Suarez NURSE FIRST AID LAB BLOOD ORDERABLES Final Re sult Performing Organization Address City/[facility]/ZIP Co de Phone Number [facility] Department [place] [address] * (ABNORMAL) CBC without differential (06/03/2025 8:29 PM CDT) WBC 12.46(H) 3.80 - 9.90 K/cumm Hgb 7.8(L) 13.0 - 17.5 g/dL [facility] Hct 23.9(L) 38.9 - 50.3 % [facility] Plt 254 150 - 400 K/cumm [facility] MPV 10.8 9.1 - 12.3 fL [facility] RBC 2.85(L) 4.30 - 5.80 M/cumm [facility] MCV 83.9 81.3 - 96.4 fL [facility] MCH 27.4 27.1 - 33.3 pg [facility] MCHC 32.6 32.3 - 35.7 g/dL [facility] RDW CV 15.8(H) 11.1 - 14.9 % [facility] RDW SD 44.9 35.7 - 48.1 fL [facility] NRBC abs 0.00 0.00 - 0.01 K/cumm [facility] Blood 06/03/2025 8:29 PM CDT 06/03/2025 8:48 PM CDT us Dinorah Kahn NURSE FIRST AID LAB BLOOD ORDERABLES Final Result Performing Organization Address City/[facility]/ZIP Co de Phone Number [facility] Department [place] [address] * Phosphorus (06/03/2025 8:29 PM CDT) Phosphorus, pl 3.3 2.3 - 4.5 mg/dL Blood 06/03/2025 8:29 PM CDT 06/03/2025 8:49 PM CDT Libia Suarez NURSE FIRST AID LAB BLOOD ORDERABLES Final Re sult [facility] [place] [address] * Magnesium (06/03/2025 8:29 PM CDT) Pathologist [facility] Magnesium 2.5 1.4 - 2.5 mg/dL Blood 06/03/2025 8:29 PM CDT 06/03/2025 8:49 PM CDT Dinorah Kahn NURSE FIRST AID LAB BLOOD ORDERABLES Final Result Performing Organization Address [facility] [place] [address] * (ABNORMAL) Hepatic function panel (06/03/2025 8:29 PM CDT) Pathologist [facility] Bilirubin, total 0.3 0.1 - 1.2 mg/dL Bilirubin, direct <0.2 0.1 - 0.3 mg/dL [facility] Comment:Repeated and Verifie d Protein, pl 5.6(L) 6.5 - 8.5 g/dL [facility] Albumin 3.5 3.5 - 5.0 g/dL [facility] Alk phos 268(H) 40 - 130 Units/L [facility] ALT 74(H) 7 - 55 Units/L [facility] AST 32 10 - 50 Units/L [facility] Blood 06/03/2025 8:29 PM CDT 06/03/2025 8:49 PM CDT Libia Suarez NURSE FIRST AID LAB BLOOD ORDERABLES Final Re sult Performing Organization Address City/[facility]/ZIP Co de Phone Number DULCE MARIA [facility] Department [place] [address] * (ABNORMAL) Basic metabolic panel (06/03/2025 8:29 PM CDT) Sodium 135 135 - 145 mmol/L Potassium, pl 5.9(H) 3.3 - 4.9 mmol/L [facility] Chloride 105 97 - 110 mmol/L [facility] CO2 23 22 - 32 mmol/L [facility] Anion gap 7 2 - 15 mmol/L [facility] BUN 68(H) 6 - 25 mg/dL [facility] Creatinine 1.79(H) 0.80 - 1.30 mg/dL [facility] Glucose 254(H) 70 - 199 mg/dL [facility] Comment: Interpretive Data Fasting glucose >/= [...] 2022. Calcium 9.1 8.5 - 10.3 mg/dL [facility] Blood 06/03/2025 8:29 PM CDT 06/03/2025 8:49 PM CDT Libia Suarez NURSE FIRST AID LAB BLOOD ORDERABLES Final Re sult Performing Organization Address City/[facility]/ZIP Co de Phone Number [facility] Radha [facility] Department [place] [address] * (ABNORMAL) POCT glucose (06/03/2025 7:49 PM CDT) Glucose, POC 258(H) 70 - 199 mg/dL Blood 06/03/2025 7:49 PM CDT 06/03/2025 7:49 PM CDT Addy Tapia MD LAB POCT ORDERABLES - DE VICE Final Result Performing Organization Address [facility] Co ma Phone Number [facility] [employer] [place] [address] * (ABNORMAL) POCT glucose (06/03/2025 5:09 PM CDT) Glucose, POC 264(H) 70 - 199 mg/dL Blood 06/03/2025 5:09 PM CDT 06/03/2025 5:09 PM CDT Addy Tapia MD LAB POCT ORDERABLES - DE VICE Final Result Performing Organization Address [facility] Phone Number [facility] [employer] [place] [address] * POCT glucose (06/03/2025 10:46 AM CDT) Glucose, POC 160 70 - 199 mg/dL Blood 06/03/2025 10:4 6 AM CDT 06/03/2025 10:46 AM CDT Addy Tapia MD LAB POCT ORDERABLES - DE VICE Final Result Performing Organization Address [facility] Phone Number [facility] [employer] [place] [address] * TRANSTHORACIC ECHO (TTE) LIMITED/FOLLOW UP W LTD DOPPLER/CF WO CONTRAST (06/03/2025 10:11 AM CDT) Anatomical Region Laterality Modality Ultrasound 06/03/2025 9:06 AM CDT Narrative 06/03/2025 11:27 AM CDT [facility] [place] [address] Transthoracic Echocardiographic Report Patient Name: GOSIA ZUNIGA W : 1965 (60y ) Gender: M Study Date: 06/03/2025 09:06:07 AM Ht(Inch): 72 Wt(Lb): 175.05 BSA: 2.01 Fishing Floats Assembler: Gabby Joshua RDCS Location: 5518 Order Provider: [...] Note Dmitry Araya MD PhD - 06/03/2025 [facility] [place] [address] Transthoracic Echocardiographic Report Patient Name: GOSIA ZUNIGA W : 1965 (60y ) Gender: M Study Date: 06/03/2025 09:06:07 AM Ht(Inch): 72 Wt(Lb): 175.05 BSA: 2.01 Fishing Floats Assembler: Gabby Joshua RDCS Location: [facility] Order Provider:RODNEY AMOS Heart Rate: 95 BMI: [...] 9:46 AM CDT 06/03/2025 9:46 AM CDT Addy Tapia MD LAB POCT ORDERABLES - DE VICE Final Result [facility] One [facility] Department [place] [address] * ENDOMYOCARDIAL BIOPSY (06/03/2025 9:12 AM CDT) [...] clinical evaluation. Narrative 06/03/2025 9:32 AM CDT [facility] HOSPITALITY SERVICES MANAGER REPORT PROCEDURE: Endomyocardial biopsy CLINICAL HISTORY: Gosia [...] micropuncture and modified Seldinger technique a 7 Guyanese sheath was inserted into the right jugular vein. 5. Endomyocardial biopsy was performed using a 7 Guyanese bioptome. 4 endomyocardial biopsy specimens were obtained, [...] pressure: 8 mmHg DIAGNOSTIC us Chelsy Mckenzie NURSE FIRST AID CV CARDIAC CATH PROCEDURES Final Result * Surgical pathology (06/03/2025 7:58 AM CDT) Tissue (Heart, Biopsy) 06/03/2025 7:58 AM CDT Narrative PATHOLOGY [facility] - 06/03/2025 3:47 PM CDT EPIC results best viewed via link to PDF [facility] Velma Matta Laboratory of Surgical Pathology [place] [address] Note to Patients: This report may contain [...] REPORT FINAL Patient Name: GOSIA ZUNIGA Gender: Elzbieta : 1965 (Age: 60) Address: [address] [place] [id number] Hospital #: [id number] Taken:06/03/2025 Received:06/03/2025 Reported: 06/03/2025 Patient Type: [facility] Inpatient Service: Cardiology Location: [address] Physician(s): Rodney Amos M.D. Yaakov Lawrence M.D., PHD Cece Betts.Seun Diagnosis: A. Heart, allograft, endomyocardial biopsy: - No evidence of acute cellular rejection, ISHLT [id number] - No histologic features suggestive of antibody [...] in greatest dimension. Labeled A1. Jar [facility]/06/03/2025 10:23 PA(s): Araceli Barger By this signature, I attest that the above diagnosis is based upon my personal examination of the slides(and/or other material). Addenda/Procedures The performance characteristics of some immunohistochemical stains, fluorescence in-situ hybridization tests and immunophenotyping by flow cytometry cited in this report (if any) were determined by the Surgical Pathology and Flow Cytometry Departments at [facility] as part of an ongoing quality compliance manager program and in compliance with federally mandated [...] Surgical Pathology and Flow Cytometry Departments of [facility]. It has not been cleared or approved by the U. S. Food and Drug Administration. IMAGES AND SCANNED DOCUMENTS, IF INCLUDED, ONLY VIEWABLE IN PDF VERSION OF REPORT Rodney Amos MD PhD LAB PATHOLOGY ORDERA BLES Final Result Performing Organization Address [facility]/ZIP Co de Phone Number PATHOLOGY [facility] 3rd Floor [place], [place] [phone] * POCT glucose (06/03/2025 6:59 AM CDT) Glucose, POC 146 70 - 199 mg/dL Blood 06/03/2025 6:59 AM CDT 06/03/2025 6:59 AM CDT Addy Tapia MD LAB POCT ORDERABLES - DE VICE Final Result Performing Organization Address [facility]/ZIP Co de Phone Number [facility] One [facility] Department [place] [address] * Potassium, whole blood (06/03/2025 6:26 AM CDT) Potassium, bld 4.8 3.3 - 4.9 mmol/L Blood 06/03/2025 6:26 AM CDT 06/03/2025 6:37 AM CDT Bar Gamble MD LAB BLOOD ORDERABLES Final R esult Performing Organization Address City/[facility] Co de Phone Number [facility] Department [place] [address] * Oxyhemoglobin, central venous (06/03/2025 5:24 AM CDT) Oxyhemoglobin, CV 73.5 % Comment: Interpretive Data No reference range established. Current interpretive data was last revised 2020. Blood 06/03/2025 5:24 AM CDT 06/03/2025 5:35 AM CDT Addy Tapia MD LAB BLOOD ORDERABLES Fin al Result Performing Organization Address [facility] de Phone Number [facility] [place] [address] * Tacrolimus level trough (06/03/2025 5:17 AM CDT) [facility] Tacrolimus trough 8.9 ng/mL Comment: Interpretive Data Testing performed by liquid chromatography-tandem mass spectrometry. Therapeutic concentrations vary depending on type of transplanted organ and time elapsed since transplant. Typical trough concentrations range from 5-15 ng/mL. This test was developed and its performance characteristics determined by the [facility] Laboratory consistent with CLIA requirements. This test has not been cleared or approved by the US Food and Drug administration. Current interpretive data last reviewed 2020. Blood 06/03/2025 5:17 AM CDT 06/03/2025 5:42 AM CDT us Zev Cowart MD PhD LAB BLOOD ORDERABLES Fi nal Result Performing Organization Address [facility] Co de Phone Number [facility] [place] [address] * (ABNORMAL) POCT glucose (06/02/2025 8:28 PM CDT) Glucose, POC 270(H) 70 - 199 mg/dL Blood 06/02/2025 8:28 PM CDT 06/02/2025 8:28 PM CDT Addy Tapia MD LAB POCT ORDERABLES - DE VICE Final Result Performing Organization Address [facility] Co de Phone Number [facility] Department [place] [address] * (ABNORMAL) eGFR (06/02/2025 8:22 PM CDT) [...] ORDERABLES Final Re sult Performing Organization Address City/[facility]/ZIP Co de Phone Number [facility] Department [place] [address] * (ABNORMAL) CBC without differential (06/02/2025 8:22 PM CDT) WBC 11.87(H) 3.80 - 9.90 K/cumm Hgb 7.7(L) 13.0 - 17.5 g/dL [facility] Hct 24.1(L) 38.9 - 50.3 % [facility] Plt 253 150 - 400 K/cumm [facility] MPV 11.2 9.1 - 12.3 fL [facility] RBC 2.88(L) 4.30 - 5.80 M/cumm [facility] MCV 83.7 81.3 - 96.4 fL [facility] MCH 26.7(L) 27.1 - 33.3 pg [facility] MCHC 32.0(L) 32.3 - 35.7 g/dL [facility] RDW CV 15.2(H) 11.1 - 14.9 % [facility] RDW SD 44.6 35.7 - 48.1 fL [facility] NRBC abs 0.00 0.00 - 0.01 K/cumm [facility] Blood 06/02/2025 8:22 PM CDT 06/02/2025 8:48 PM CDT Dinorah Kahn NURSE FIRST AID LAB BLOOD ORDERABLES Final Result Performing Organization Address City/[facility] Co de Phone Number [facility] Department [place] [employer] [place] [address] * Phosphorus (06/02/2025 8:22 PM CDT) [facility] Phosphorus, pl 3.3 2.3 - 4.5 mg/dL Blood 06/02/2025 8:22 PM CDT 06/02/2025 8:48 PM CDT Libia Suarez NURSE FIRST AID LAB BLOOD ORDERABLES Final Re sult [facility] [place] [address] * Magnesium (06/02/2025 8:22 PM CDT) Magnesium 1.8 1.4 - 2.5 mg/dL Blood 06/02/2025 8:22 PM CDT 06/02/2025 8:48 PM CDT Dinorah Kahn NURSE FIRST AID LAB BLOOD ORDERABLES Final Result Performing Organization Address [facility] Co de Phone Number [facility] [place] [address] * (ABNORMAL) Hepatic function panel (06/02/2025 8:22 PM CDT) [facility] Bilirubin, total 0.3 0.1 - 1.2 mg/dL Bilirubin, direct 0.2 0.1 - 0.3 mg/dL [facility] Protein, pl 5.3(L) 6.5 - 8.5 g/dL [facility] Albumin 3.4(L) 3.5 - 5.0 g/dL [facility] Alk phos 250(H) 40 - 130 Units/L [facility] ALT 82(H) 7 - 55 Units/L [facility] AST 35 10 - 50 Units/L [facility] Blood 06/02/2025 8:22 PM CDT 06/02/2025 8:48 PM CDT Libia Suarez NURSE FIRST AID LAB BLOOD ORDERABLES Final Re sult Performing Organization Address [facility] Co de Phone Number [facility] [place] [address] * (ABNORMAL) Basic metabolic panel (06/02/2025 8:22 PM CDT) Pathologist [facility] Sodium 138 135 - 145 mmol/L Potassium, pl 5.8(H) 3.3 - 4.9 mmol/L [facility] Chloride 106 97 - 110 mmol/L [facility] CO2 23 22 - 32 mmol/L [facility] Anion gap 9 2 - 15 mmol/L [facility] BUN 72(H) 6 - 25 mg/dL [facility] Creatinine 1.83(H) 0.80 - 1.30 mg/dL [facility] Glucose 258(H) 70 - 199 mg/dL [facility] Comment: Interpretive Data Fasting glucose >/= [...] 2022. Calcium 8.8 8.5 - 10.3 mg/dL [facility] Blood 06/02/2025 8:22 PM CDT 06/02/2025 8:48 PM CDT Libia Suarez NP LAB BLOOD ORDERABLES Final Re sult [facility] Department [place] [employer] [place] [address] * POCT glucose (06/02/2025 3:35 PM CDT) Glucose, POC 180 70 - 199 mg/dL Blood 06/02/2025 3:35 PM CDT 06/02/2025 3:35 PM CDT Addy Tapia MD LAB POCT ORDERABLES - DE VICE Final Result [facility] Department [place] [employer] [place] [address] * POCT glucose (06/02/2025 11:12 AM CDT) Glucose, POC 171 70 - 199 mg/dL Blood 06/02/2025 11:1 2 AM CDT 06/02/2025 11:12 AM CDT us Addy Tapia MD LAB POCT ORDERABLES - DE VICE Final Result Performing Organization Address [facility] de Phone Number [facility] [place] [address] * POCT glucose (06/02/2025 7:56 AM CDT) Glucose, POC 160 70 - 199 mg/dL Blood 06/02/2025 7:56 AM CDT 06/02/2025 7:56 AM CDT Addy Tapia MD LAB POCT ORDERABLES - DE VICE Final Result Performing Organization Address [facility] Phone Number [facility] [place] [address] * Oxyhemoglobin, central venous (06/02/2025 5:05 AM CDT) Oxyhemoglobin, CV 71.3 % Comment: Interpretive Data No reference range established. Current interpretive data was last revised 2020. Blood 06/02/2025 5:05 AM CDT 06/02/2025 5:32 AM CDT Result [facility] Addy Tapia MD LAB BLOOD ORDERABLES Fin al Result Performing Organization Address [facility] Co ma Phone Number [facility] [place] [address] * Potassium, whole blood (06/02/2025 5:05 AM CDT) Potassium, bld 4.8 3.3 - 4.9 mmol/L Blood 06/02/2025 5:05 AM CDT 06/02/2025 5:32 AM CDT Addy Tapia MD LAB BLOOD ORDERABLES Fin al Result Performing Organization Address [facility] Co de Phone Number [facility] [place] [address] * Tacrolimus level trough (06/02/2025 5:05 AM CDT) Pathologist [facility] Tacrolimus trough 11.5 ng/mL Comment: Interpretive Data Testing performed by liquid chromatography-tandem mass spectrometry. Therapeutic concentrations vary depending on type of transplanted organ and time elapsed since transplant. Typical trough concentrations range from 5-15 ng/mL. This test was developed and its performance characteristics determined by the [facility] consistent with CLIA requirements. This test has not been cleared or approved by the [place] Food and Drug administration. Current interpretive data last reviewed 2020. Blood 06/02/2025 5:05 AM CDT 06/02/2025 5:40 AM CDT Zev Cowart MD PhD LAB BLOOD ORDERABLES Fi nal Result Performing Organization Address [facility] Co de Phone Number [facility] [place] [address] * Antibody identification (06/01/2025 10:08 PM CDT) [facility] Antibody ID 1 Anti-CD38 Comment:Panreactive -CD38 on reagent RBCs reacting with anti-CD38 therapy. DTT treatment removes cell surface CD38 and allows detection of common clinically significant antibodies except those against Dilma antigens. TRANSFUSION 2015;55;[id number] Blood 06/01/2025 10:0 8 PM CDT 06/01/2025 10:08 PM CDT Dinorah Kahn NURSE FIRST AID LAB BLOOD BANK TEST ORDERAB LES Final Result Performing Organization Address [facility] Co de Phone Number [facility] [place] [employer] [place] [address] * XR Chest 1 View (06/01/2025 9:26 [...] pneumothorax. Electronically signed by: Lorenzo Weir M.D. [facility] Tapia MD IMG XR PROCEDURES Final Result [...] CDT 06/01/2025 9:12 PM CDT Libia Suarez NURSE FIRST AID LAB BLOOD ORDERABLES Final Re sult Performing Organization Address City/[facility]/ZIP Co de Phone Number [facility] Department [place] [address] * (ABNORMAL) CBC without differential (06/01/2025 8:20 PM CDT) WBC 13.71(H) 3.80 - 9.90 K/cumm Hgb 7.6(L) 13.0 - 17.5 g/dL [facility] Hct 23.9(L) 38.9 - 50.3 % [facility] Plt 240 150 - 400 K/cumm [facility] MPV 11.4 9.1 - 12.3 fL [facility] RBC 2.84(L) 4.30 - 5.80 M/cumm [facility] MCV 84.2 81.3 - 96.4 fL [facility] MCH 26.8(L) 27.1 - 33.3 pg [facility] MCHC 31.8(L) 32.3 - 35.7 g/dL [facility] RDW CV 15.0(H) 11.1 - 14.9 % [facility] RDW SD 45.1 35.7 - 48.1 fL [facility] NRBC abs 0.00 0.00 - 0.01 K/cumm [facility] Blood 06/01/2025 8:20 PM CDT 06/01/2025 9:13 PM CDT Dinorah Kahn NURSE FIRST AID LAB BLOOD ORDERABLES Final Result Performing Organization Address City/[facility]/ZIP Co de Phone Number [facility] Department [place] [address] * (ABNORMAL) Type and screen (06/01/2025 8:20 PM CDT) Pathologist [facility] Poppy, indirect Positive(A) ABO Rh O Positive [facility] Blood 06/01/2025 8:20 PM CDT 06/01/2025 9:19 PM CDT Narrative [facility] - 06/01/2025 10:08 PM CDT Has the patient had Daratumumab or Isatuximab in the past 6 months?->Unknown Dinorah Kahn NP LAB BLOOD BANK TEST ORDERAB LES Final Result Performing Organization Address [facility] Co de Phone Number [facility] Department [place] [address] * Phosphorus (06/01/2025 8:20 PM CDT) Pathologist [facility] Phosphorus, pl 2.9 2.3 - 4.5 mg/dL Blood 06/01/2025 8:20 PM CDT 06/01/2025 9:12 PM CDT Libia Suarez NURSE FIRST AID LAB BLOOD ORDERABLES Final Re sult Performing Organization Address City/[facility]/ZIP Co de Phone Number [facility] Department [place] [address] * Magnesium (06/01/2025 8:20 PM CDT) Pathologist [facility] Magnesium 1.8 1.4 - 2.5 mg/dL Blood 06/01/2025 8:2 0 PM CDT 06/01/2025 9:12 PM CDT Dniorah Kahn NP LAB BLOOD ORDERABLES Final Result Performing Organization Address City/[facility]/ZIP Co de Phone Number [facility] Department [place] [address] * (ABNORMAL) Hepatic function panel (06/01/2025 8:20 PM CDT) [facility] Bilirubin, total 0.3 0.1 - 1.2 mg/dL Bilirubin, direct 0.2 0.1 - 0.3 mg/dL [facility] Protein, pl 5.4(L) 6.5 - 8.5 g/dL [facility] Albumin 3.5 3.5 - 5.0 g/dL [facility] Alk phos 243(H) 40 - 130 Units/L [facility] ALT 100(H) 7 - 55 Units/L [facility] AST 56(H) 10 - 50 Units/L [facility] Blood 06/01/2025 8:20 PM CDT 06/01/2025 9:12 PM CDT Libia Suarez NURSE FIRST AID LAB BLOOD ORDERABLES Final Re sult [facility] One [facility] Department [place] [address] * (ABNORMAL) Basic metabolic panel (06/01/2025 8:20 PM CDT) [facility] Sodium 135 135 - 145 mmol/L Potassium, pl 5.9(H) 3.3 - 4.9 mmol/L [facility] Chloride 104 97 - 110 mmol/L [facility] CO2 23 22 - 32 mmol/L [facility] Anion gap 8 2 - 15 mmol/L [facility] BUN 70(H) 6 - 25 mg/dL [facility] Creatinine 1.89(H) 0.80 - 1.30 mg/dL [facility] Glucose 259(H) 70 - 199 mg/dL [facility] Comment: Interpretive Data Fasting glucose >/= [...] 2022. Calcium 9.1 8.5 - 10.3 mg/dL [facility] Blood 06/01/2025 8:20 PM CDT 06/01/2025 9:12 PM CDT Libia Suarez NP LAB BLOOD ORDERABLES Final Re sult Performing Organization Address [facility]/ZIP Co de Phone Number [facility] [employer] [place] [address] * (ABNORMAL) POCT glucose (06/01/2025 7:56 PM CDT) Glucose, POC 248(H) 70 - 199 mg/dL Blood 06/01/2025 7:56 PM CDT 06/01/2025 7:56 PM CDT Addy Tapia MD LAB POCT ORDERABLES - DE VICE Final Result Performing Organization Address [facility] Co de Phone Number [facility] [place] [employer] [place] [address] * POCT glucose (06/01/2025 4:58 PM CDT) Glucose, POC 190 70 - 199 mg/dL Blood 06/01/2025 4:58 PM CDT 06/01/2025 4:58 PM CDT Addy Tapia MD LAB POCT ORDERABLES - DE VICE Final Result Performing Organization Address [facility] Co de Phone Number [facility] [place] [address] * XR Abdomen 1 View AP (06/01/2025 [...] signed by: Jamie Lugo M.D. Araceli Hemphill NP IMG XR PROCEDURES Final Resul t * (ABNORMAL) POCT glucose (06/01/2025 10:52 AM CDT) Glucose, POC 253(H) 70 - 199 mg/dL Blood 06/01/2025 10:5 2 AM CDT 06/01/2025 10:52 AM CDT Addy Tapia MD LAB POCT ORDERABLES - DE VICE Final Result [facility] One [facility] Department [place] [address] * POCT glucose (06/01/2025 8:09 AM CDT) Glucose, POC 150 70 - 199 mg/dL Blood 06/01/2025 8:09 AM CDT 06/01/2025 8:09 AM CDT Addy Tapia MD LAB POCT ORDERABLES - DE VICE Final Result Performing Organization Address [facility] Phone Number [facility] Department [place] [address] * POCT glucose (06/01/2025 5:18 AM CDT) [facility] Glucose, POC 172 70 - 199 mg/dL Blood 06/01/2025 5:18 AM CDT 06/01/2025 5:18 AM CDT Addy Tapia MD LAB POCT ORDERABLES - DE VICE Final Result Performing Organization Address [facility] [place] [address] * Tacrolimus level trough (06/01/2025 5:16 AM CDT) [facility] Tacrolimus trough 7.3 ng/mL Comment: Interpretive Data Testing performed by liquid chromatography-tandem mass spectrometry. Therapeutic concentrations vary depending on type of transplanted organ and time elapsed since transplant. Typical trough concentrations range from 5-15 ng/mL. This test was developed and its performance characteristics determined by the [facility] consistent with CLIA requirements. This test has not been cleared or approved by the [place] Food and Drug administration. Current interpretive data last reviewed 2020. Blood 06/01/2025 5:16 AM CDT 06/01/2025 5:50 AM CDT Zev Cowart MD PhD LAB BLOOD ORDERABLES Fi nal Result Performing Organization Address [facility] de Phone Number [facility] [place] [address] * (ABNORMAL) eGFR (05/31/2025 9:47 PM CDT) [facility] eGFR 47(L) >=60 mL/min/1. 73 m2 Comment: [...] 05/31/2025 11:08 PM CDT us Libia Suarez NURSE FIRST AID LAB BLOOD ORDERABLES Final Re sult [facility] One [facility] [place] [address] * (ABNORMAL) CBC without differential (05/31/2025 9:47 PM CDT) [facility] WBC 9.43 3.80 - 9.90 K/cumm Hgb 8.0(L) 13.0 - 17.5 g/dL [facility] Hct 24.8(L) 38.9 - 50.3 % [facility] Plt 206 150 - 400 K/cumm [facility] MPV 10.9 9.1 - 12.3 fL [facility] RBC 2.99(L) 4.30 - 5.80 M/cumm [facility] MCV 82.9 81.3 - 96.4 fL [facility] MCH 26.8(L) 27.1 - 33.3 pg [facility] MCHC 32.3 32.3 - 35.7 g/dL [facility] RDW CV 14.9 11.1 - 14.9 % [facility] RDW SD 44.4 35.7 - 48.1 fL [facility] NRBC abs 0.00 0.00 - 0.01 K/cumm [facility] Blood 05/31/2025 9:47 PM CDT 05/31/2025 11:08 PM CDT Dinorah Kahn NURSE FIRST AID LAB BLOOD ORDERABLES Final Result [facility] [place] [address] * Phosphorus (05/31/2025 9:47 PM CDT) [facility] Phosphorus, pl 2.6 2.3 - 4.5 mg/dL Blood 05/31/2025 9:47 PM CDT 05/31/2025 11:08 PM CDT Libia Suarez NURSE FIRST AID LAB BLOOD ORDERABLES Final Re sult Performing Organization Address City/[facility] Co de Phone Number [facility] Department [place] [employer] [place] [address] * Magnesium (05/31/2025 9:47 PM CDT) [facility] Magnesium 2.0 1.4 - 2.5 mg/dL Blood 05/31/2025 9:47 PM CDT 05/31/2025 11:08 PM CDT Dinorah Kahn NP LAB BLOOD ORDERABLES Final Result Performing Organization Address City/[facility]/ZIP Co de Phone Number [facility] [place] [address] * (ABNORMAL) Hepatic function panel (05/31/2025 9:47 PM CDT) [facility] Bilirubin, total 0.3 0.1 - 1.2 mg/dL Bilirubin, direct 0.2 0.1 - 0.3 mg/dL [facility] Protein, pl 5.5(L) 6.5 - 8.5 g/dL [facility] Albumin 3.4(L) 3.5 - 5.0 g/dL [facility] Alk phos 242(H) 40 - 130 Units/L [facility] ALT 99(H) 7 - 55 Units/L [facility] AST 63(H) 10 - 50 Units/L [facility] Blood 05/31/2025 9:47 PM CDT 05/31/2025 11:08 PM CDT Libia Suarez NURSE FIRST AID LAB BLOOD ORDERABLES Final Re sult [facility] Department [place] [address] * (ABNORMAL) Basic metabolic panel (05/31/2025 9:47 PM CDT) [facility] Sodium 137 135 - 145 mmol/L Potassium, pl 5.3(H) 3.3 - 4.9 mmol/L [facility] Chloride 104 97 - 110 mmol/L [facility] CO2 24 22 - 32 mmol/L [facility] Anion gap 9 2 - 15 mmol/L [facility] BUN 63(H) 6 - 25 mg/dL [facility] Creatinine 1.65(H) 0.80 - 1.30 mg/dL [facility] Glucose 295(H) 70 - 199 mg/dL [facility] Comment: Interpretive Data Fasting glucose >/= [...] 2022. Calcium 8.7 8.5 - 10.3 mg/dL [facility] Blood 05/31/2025 9:47 PM CDT 05/31/2025 11:08 PM CDT Libia Suarez NP LAB BLOOD ORDERABLES Final Re sult [facility] [place] [address] * XR Chest 1 View (05/31/2025 8:58 [...] pneumothorax. Electronically signed by: Blake Montanez M.D. Addy Tapia MD IMG XR PROCEDURES Final Result * (ABNORMAL) POCT glucose (05/31/2025 8:49 PM CDT) Glucose, POC 306(H) 70 - 199 mg/dL Blood 05/31/2025 8:49 PM CDT 05/31/2025 8:49 PM CDT Addy Tapia MD LAB POCT ORDERABLES - DE VICE Final Result Performing Organization Address [facility] Co de Phone Number [facility] [employer] [place] [address] * POCT glucose (05/31/2025 3:58 PM CDT) Glucose, POC 198 70 - 199 mg/dL Blood 05/31/2025 3:58 PM CDT 05/31/2025 3:58 PM CDT Addy Tapia MD LAB POCT ORDERABLES - DE VICE Final Result Performing Organization Address [facility] Co de Phone Number [facility] [employer] [place] [address] * POCT glucose (05/31/2025 11:47 AM CDT) Glucose, POC 173 70 - 199 mg/dL Blood 05/31/2025 11:4 7 AM CDT 05/31/2025 11:47 AM CDT Addy Tapia MD LAB POCT ORDERABLES - DE VICE Final Result Performing Organization Address City/[facility] Co de Phone Number [facility] [employer] [place] [address] * POCT glucose (05/31/2025 7:45 AM CDT) Glucose, POC 155 70 - 199 mg/dL Blood 05/31/2025 7:45 AM CDT 05/31/2025 7:45 AM CDT Addy Jamar Tapia MD LAB POCT ORDERABLES - DE VICE Final Result Performing Organization Address [facility] de Phone Number [facility] Department [place] [address] * Tacrolimus level trough (05/31/2025 4:18 AM CDT) Tacrolimus trough 8.5 ng/mL Comment: Interpretive Data Testing performed by liquid chromatography-tandem mass spectrometry. Therapeutic concentrations vary depending on type of transplanted organ and time elapsed since transplant. Typical trough concentrations range from 5-15 ng/mL. This test was developed and its performance characteristics determined by the [facility] consistent with CLIA requirements. This test has not been cleared or approved by the [place] Food and Drug administration. Current interpretive data last reviewed 2020. Blood 05/31/2025 4:18 AM CDT 05/31/2025 5:39 AM CDT Zev Cowart MD PhD LAB BLOOD ORDERABLES Fi nal Result Performing Organization Address [facility] Co de Phone Number [facility] [place] [address] * XR Chest 1 View (05/30/2025 10:18 [...] Performing Organization Address [facility] Co de Phone Number [facility] Department [place] [address] * (ABNORMAL) Potassium, whole blood (05/30/2025 8:30 PM CDT) Potassium, bld 5.1(H) 3.3 - 4.9 mmol/L Blood 05/30/2025 8:30 PM CDT 05/30/2025 8:44 PM CDT us Bar Gamble MD LAB BLOOD ORDERABLES Final R esult Performing Organization Address City/[facility] Co de Phone Number [facility] Department [place] [address] * (ABNORMAL) eGFR (05/30/2025 8:23 PM CDT) Pathologist [facility] eGFR 51(L) >=60 mL/min/1. 73 m2 Comment: [...] CDT 05/30/2025 8:54 PM CDT Libia Suarez NURSE FIRST AID LAB BLOOD ORDERABLES Final Re sult [facility] Department [place] [address] * (ABNORMAL) CBC without differential (05/30/2025 8:23 PM CDT) [facility] WBC 9.23 3.80 - 9.90 K/cumm Hgb 8.3(L) 13.0 - 17.5 g/dL [facility] Hct 25.8(L) 38.9 - 50.3 % [facility] Plt 193 150 - 400 K/cumm [facility] MPV 11.1 9.1 - 12.3 fL [facility] RBC 3.08(L) 4.30 - 5.80 M/cumm [facility] MCV 83.8 81.3 - 96.4 fL [facility] MCH 26.9(L) 27.1 - 33.3 pg [facility] MCHC 32.2(L) 32.3 - 35.7 g/dL [facility] RDW CV 14.7 11.1 - 14.9 % [facility] RDW SD 44.9 35.7 - 48.1 fL [facility] NRBC abs 0.00 0.00 - 0.01 K/cumm [facility] Blood 05/30/2025 8:23 PM CDT 05/30/2025 8:51 PM CDT Dinorah Kahn NURSE FIRST AID LAB BLOOD ORDERABLES Final Result Performing Organization Address [facility] Co de Phone Number [facility] Department [place] [address] * Phosphorus (05/30/2025 8:23 PM CDT) Phosphorus, pl 2.6 2.3 - 4.5 mg/dL Blood 05/30/2025 8:23 PM CDT 05/30/2025 8:48 PM CDT us Libia Suarez NURSE FIRST AID LAB BLOOD ORDERABLES Final Re sult Performing Organization Address City/[facility] Co de Phone Number [facility] Department [place] [address] * Magnesium (05/30/2025 8:23 PM CDT) Magnesium 1.9 1.4 - 2.5 mg/dL Blood 05/30/2025 8:23 PM CDT 05/30/2025 8:48 PM CDT Addy Tapia MD LAB BLOOD ORDERABLES Fin al Result Performing Organization Address City/[facility] Co de Phone Number [facility] Department [place] [address] * (ABNORMAL) Hepatic function panel (05/30/2025 8:23 PM CDT) [facility] Bilirubin, total 0.4 0.1 - 1.2 mg/dL Bilirubin, direct 0.2 0.1 - 0.3 mg/dL [facility] Protein, pl 5.4(L) 6.5 - 8.5 g/dL [facility] Albumin 3.4(L) 3.5 - 5.0 g/dL [facility] Alk phos 202(H) 40 - 130 Units/L [facility] ALT 63(H) 7 - 55 Units/L [facility] AST 57(H) 10 - 50 Units/L [facility] Blood 05/30/2025 8:23 PM CDT 05/30/2025 8:48 PM CDT Libia Suarez NURSE FIRST AID LAB BLOOD ORDERABLES Final Re sult [facility] Department [place] [address] * (ABNORMAL) Basic metabolic panel (05/30/2025 8:23 PM CDT) [facility] Sodium 136 135 - 145 mmol/L Potassium, pl 5.2(H) 3.3 - 4.9 mmol/L [facility] Chloride 104 97 - 110 mmol/L [facility] CO2 25 22 - 32 mmol/L [facility] Anion gap 7 2 - 15 mmol/L [facility] BUN 57(H) 6 - 25 mg/dL [facility] Creatinine 1.54(H) 0.80 - 1.30 mg/dL [facility] Glucose 235(H) 70 - 199 mg/dL [facility] Comment: Interpretive Data Fasting glucose >/= [...] 2022. Calcium 8.7 8.5 - 10.3 mg/dL [facility] Blood 05/30/2025 8:23 PM CDT 05/30/2025 8:48 PM CDT Libia Suarez NP LAB BLOOD ORDERABLES Final Re sult Performing Organization Address City/[facility]/ZIP Co de Phone Number [facility] Department [place] [employer] [place] [address] * (ABNORMAL) POCT glucose (05/30/2025 8:05 PM CDT) Glucose, POC 240(H) 70 - 199 mg/dL Blood 05/30/2025 8:05 PM CDT 05/30/2025 8:05 PM CDT Addy Tapia MD LAB POCT ORDERABLES - DE VICE Final Result Performing Organization Address [facility] Co de Phone Number [facility] Department [place] [employer] [place] [address] * POCT glucose (05/30/2025 4:44 PM CDT) Glucose, POC 187 70 - 199 mg/dL Blood 05/30/2025 4:44 PM CDT 05/30/2025 4:44 PM CDT Addy Tapia MD LAB POCT ORDERABLES - DE VICE Final Result Performing Organization Address [facility] Co de Phone Number [facility] Department [place] [address] * POCT glucose (05/30/2025 11:41 AM CDT) Glucose, POC 174 70 - 199 mg/dL Blood 05/30/2025 11:4 1 AM CDT 05/30/2025 11:41 AM CDT Addy Tapia MD LAB POCT ORDERABLES - DE VICE Final Result Performing Organization Address [facility] Phone Number [facility] Department [place] [address] * POCT glucose (05/30/2025 7:35 AM CDT) Glucose, POC 143 70 - 199 mg/dL Blood 05/30/2025 7:35 AM CDT 05/30/2025 7:35 AM CDT Result [facility] Addy Tapia MD LAB POCT ORDERABLES - DE VICE Final Result Performing Organization Address [facility] Phone Number [facility] [place] [address] * Tacrolimus level trough (05/30/2025 5:28 AM CDT) Tacrolimus trough 10.2 ng/mL Comment: Interpretive Data Testing performed by liquid chromatography-tandem mass spectrometry. Therapeutic concentrations vary depending on type of transplanted organ and time elapsed since transplant. Typical trough concentrations range from 5-15 ng/mL. This test was developed and its performance characteristics determined by the [facility] consistent with CLIA requirements. This test has not been cleared or approved by the [place] Food and Drug administration. Current interpretive data last reviewed 2020. Blood 05/30/2025 5:28 AM CDT 05/30/2025 5:41 AM CDT Zev Cwoart MD PhD LAB BLOOD ORDERABLES Fi nal Result Performing Organization Address [facility]/ZIP Co de Phone Number [facility] Department [place] [address] * Antibody identification (05/29/2025 10:52 PM CDT) Pathologist [facility] Antibody ID 1 Anti-CD38 Comment:Panreactive -CD38 on reagent RBCs reacting with anti-CD38 therapy. DTT treatment removes cell surface CD38 and allows detection of common clinically significant antibodies except those against [place] antigens. TRANSFUSION 2015;[id number] Blood 05/29/2025 10:5 2 PM CDT 05/29/2025 10:52 PM CDT Dinorah Kahn NP LAB BLOOD BANK TEST ORDERAB LES Final Result Performing Organization Address City/State/[facility] Co de Phone Number DULCE MARIA [facility] Department [place] [address] * (ABNORMAL) eGFR (05/29/2025 8:49 PM CDT) Pathologist [facility] eGFR 43(L) >=60 mL/min/1. 73 m2 Comment: [...] CDT 05/29/2025 9:30 PM CDT Libia Suarez NURSE FIRST AID LAB BLOOD ORDERABLES Final Re sult Performing Organization Address [facility]/ZIP Co de Phone Number [facility] Department [place] [address] * (ABNORMAL) CBC without differential (05/29/2025 8:49 PM CDT) WBC 10.46(H) 3.80 - 9.90 K/cumm Hgb 8.7(L) 13.0 - 17.5 g/dL [facility] Hct 26.4(L) 38.9 - 50.3 % [facility] Plt 207 150 - 400 K/cumm [facility] MPV 11.1 9.1 - 12.3 fL [facility] RBC 3.23(L) 4.30 - 5.80 M/cumm [facility] MCV 81.7 81.3 - 96.4 fL [facility] MCH 26.9(L) 27.1 - 33.3 pg [facility] MCHC 33.0 32.3 - 35.7 g/dL [facility] RDW CV 14.7 11.1 - 14.9 % [facility] RDW SD 44.1 35.7 - 48.1 fL [facility] NRBC abs 0.00 0.00 - 0.01 K/cumm [facility] Blood 05/29/2025 8:49 PM CDT 05/29/2025 9:31 PM CDT Dinorah Kahn NURSE FIRST AID LAB BLOOD ORDERABLES Final Result [facility] [place], [place] [id number] * (ABNORMAL) Type and screen (05/29/2025 8:49 PM CDT) ABO Rh O Positive Poppy, indirect Positive(A) [facility] Blood 05/29/2025 8:49 PM CDT 05/29/2025 9:39 PM CDT Narrative [facility] - 05/29/2025 10:52 PM CDT Has the patient had Daratumumab or Isatuximab in the past 6 months?->Unknown Dinorah Kahn NURSE FIRST AID LAB BLOOD BANK TEST ORDERAB LES Final Result Performing Organization Address [facility] Co de Phone Number [facility] [employer] [place] [address] * Phosphorus (05/29/2025 8:49 PM CDT) Phosphorus, pl 2.8 2.3 - 4.5 mg/dL Blood 05/29/2025 8:49 PM CDT 05/29/2025 9:30 PM CDT Libia Suarez NP LAB BLOOD ORDERABLES Final Re sult Performing Organization Address [facility] Co de Phone Number [facility] [employer] [place] [address] * Magnesium (05/29/2025 8:49 PM CDT) Magnesium 2.4 1.4 - 2.5 mg/dL Blood 05/29/2025 8:49 PM CDT 05/29/2025 9:30 PM CDT Libia Suarez NP LAB BLOOD ORDERABLES Final Re sult Performing Organization Address City/[facility] [place] [address] * (ABNORMAL) Hepatic function panel (05/29/2025 8:49 PM CDT) Bilirubin, total 0.5 0.1 - 1.2 mg/dL Bilirubin, direct 0.3 0.1 - 0.3 mg/dL [facility] Protein, pl 5.3(L) 6.5 - 8.5 g/dL [facility] Albumin 3.5 3.5 - 5.0 g/dL [facility] Alk phos 160(H) 40 - 130 Units/L [facility] ALT 32 7 - 55 Units/L [facility] AST 24 10 - 50 Units/L [facility] Blood 05/29/2025 8:49 PM CDT 05/29/2025 9:30 PM CDT Libia Suarez NURSE FIRST AID LAB BLOOD ORDERABLES Final Re sult [facility] Department [place] [address] * (ABNORMAL) Basic metabolic panel (05/29/2025 8:49 PM CDT) Sodium 133(L) 135 - 145 mmol/L Potassium, pl 5.2(H) 3.3 - 4.9 mmol/L [facility] Chloride 100 97 - 110 mmol/L [facility] CO2 25 22 - 32 mmol/L [facility] Anion gap 8 2 - 15 mmol/L [facility] BUN 58(H) 6 - 25 mg/dL [facility] Creatinine 1.78(H) 0.80 - 1.30 mg/dL [facility] Glucose 288(H) 70 - 199 mg/dL [facility] Comment: Interpretive Data Fasting glucose >/= [...] 2022. Calcium 8.7 8.5 - 10.3 mg/dL [facility] Blood 05/29/2025 8:49 PM CDT 05/29/2025 9:30 PM CDT us Libia Suarez NP LAB BLOOD ORDERABLES Final Re sult DULCE MARIA [facility] Department [place] [address] * (ABNORMAL) POCT glucose (05/29/2025 8:13 PM CDT) Glucose, POC 284(H) 70 - 199 mg/dL Blood 05/29/2025 8:13 PM CDT 05/29/2025 8:13 PM CDT Addy Tapia MD LAB POCT ORDERABLES - DE VICE Final Result Performing Organization Address City/[facility] Co de Phone Number [facility] Department [place] [address] * XR Chest 1 View (05/29/2025 7:49 [...] Performing Organization Address [facility]/ZIP Co de Phone Number [facility] Department [place] [employer] [place] [address] * (ABNORMAL) Potassium, whole blood (05/29/2025 2:32 PM CDT) Potassium, bld 5.1(H) 3.3 - 4.9 mmol/L Blood 05/29/2025 2:32 PM CDT 05/29/2025 2:40 PM CDT Bar Gamble MD LAB BLOOD ORDERABLES Final R esult [facility] [employer] [place] [address] * POCT glucose (05/29/2025 11:27 AM CDT) Glucose, POC 196 70 - 199 mg/dL Blood 05/29/2025 11:2 7 AM CDT 05/29/2025 11:27 AM CDT Addy Tapia MD LAB POCT ORDERABLES - DE VICE Final Result Performing Organization Address [facility] Co de Phone Number [facility] Department [place] [address] * (ABNORMAL) eGFR (05/29/2025 7:31 AM CDT) eGFR 43(L) >=60 mL/min/1. 73 m2 [...] Performing Organization Address [facility]/ZIP Co de Phone Number DULCE MARIA ARANDA [facility] Department [place] [address] * (ABNORMAL) Basic metabolic panel (05/29/2025 7:31 AM CDT) Sodium 138 135 - 145 mmol/L Potassium, pl 3.6 3.3 - 4.9 mmol/L [facility] Chloride 104 97 - 110 mmol/L [facility] CO2 26 22 - 32 mmol/L [facility] Anion gap 8 2 - 15 mmol/L [facility] BUN 56(H) 6 - 25 mg/dL [facility] Creatinine 1.77(H) 0.80 - 1.30 mg/dL [facility] Glucose 138 70 - 199 mg/dL [facility] Comment: Interpretive Data Fasting glucose >/= [...] 2022. Calcium 9.0 8.5 - 10.3 mg/dL [facility] Blood 05/29/2025 7:31 AM CDT 05/29/2025 7:38 AM CDT Addy Tapia MD LAB BLOOD ORDERABLES Fin al Result [facility] Department [place] [employer] [place] [address] * POCT glucose (05/29/2025 7:28 AM CDT) Glucose, POC 139 70 - 199 mg/dL Blood 05/29/2025 7:28 AM CDT 05/29/2025 7:28 AM CDT Addy Tapia MD LAB POCT ORDERABLES - DE VICE Final Result Performing Organization Address City/[facility]/ZIP Co de Phone Number [facility] Department [place] [address] * Tacrolimus level trough (05/29/2025 5:24 AM CDT) Tacrolimus trough 6.4 ng/mL Comment: Interpretive Data Testing performed by liquid chromatography-tandem mass spectrometry. Therapeutic concentrations vary depending on type of transplanted organ and time elapsed since transplant. Typical trough concentrations range from 5-15 ng/mL. This test was developed and its performance characteristics determined by the [facility] consistent with CLIA requirements. This test has not been cleared or approved by the [place] Food and Drug administration. Current interpretive data last reviewed 2020. Blood 05/29/2025 5:24 AM CDT 05/29/2025 5:31 AM CDT Zev Cowart MD PhD LAB BLOOD ORDERABLES Fi nal Result Performing Organization Address City/[facility]/ZIP Co de Phone Number [facility] Department [place] [address] * Potassium, whole blood (05/28/2025 11:51 PM CDT) Pathologist [facility] Potassium, bld 4.1 3.3 - 4.9 mmol/L Blood 05/28/2025 11:5 1 PM CDT 05/29/2025 12:03 AM CDT Addy Tapia MD LAB BLOOD ORDERABLES Fin al Result Performing Organization Address [facility] Co de Phone Number [facility] Department [place] [address] * (ABNORMAL) eGFR (05/28/2025 11:51 PM CDT) [...] MD LAB BLOOD ORDERABLES Fin al Result [facility] One [facility] [place] [address] * (ABNORMAL) CBC without differential (05/28/2025 11:51 PM CDT) WBC 11.90(H) 3.80 - 9.90 K/cumm Hgb 7.9(L) 13.0 - 17.5 g/dL [facility] Hct 24.1(L) 38.9 - 50.3 % [facility] Plt 166 150 - 400 K/cumm [facility] MPV 10.8 9.1 - 12.3 fL [facility] RBC 2.92(L) 4.30 - 5.80 M/cumm [facility] MCV 82.5 81.3 - 96.4 fL [facility] MCH 27.1 27.1 - 33.3 pg [facility] MCHC 32.8 32.3 - 35.7 g/dL [facility] RDW CV 14.6 11.1 - 14.9 % [facility] RDW SD 43.3 35.7 - 48.1 fL [facility] NRBC abs 0.00 0.00 - 0.01 K/cumm [facility] Blood 05/28/2025 11:5 1 PM CDT 05/29/2025 12:15 AM CDT us Addy Tapia MD LAB BLOOD ORDERABLES Fin al Result Performing Organization Address [facility] [place] [address] * Phosphorus (05/28/2025 11:51 PM CDT) Pathologist [facility] Phosphorus, pl 2.8 2.3 - 4.5 mg/dL Blood 05/28/2025 11:5 1 PM CDT 05/29/2025 12:25 AM CDT Addy Tapia MD LAB BLOOD ORDERABLES Fin al Result Performing Organization Address [facility] de Phone Number [facility] [place] [address] * Magnesium (05/28/2025 11:51 PM CDT) [facility] Magnesium 1.8 1.4 - 2.5 mg/dL Blood 05/28/2025 11:5 1 PM CDT 05/29/2025 12:25 AM CDT Result [facility] Addy Tapia MD LAB BLOOD ORDERABLES Fin al Result Performing Organization Address [facility] de Phone Number [facility] [place] [address] * (ABNORMAL) Hepatic function panel (05/28/2025 11:51 PM CDT) Pathologist [facility] Bilirubin, total 0.5 0.1 - 1.2 mg/dL Bilirubin, direct 0.3 0.1 - 0.3 mg/dL [facility] Protein, pl 5.2(L) 6.5 - 8.5 g/dL [facility] Albumin 3.3(L) 3.5 - 5.0 g/dL [facility] Alk phos 127 40 - 130 Units/L [facility] ALT 20 7 - 55 Units/L [facility] AST 19 10 - 50 Units/L [facility] Blood 05/28/2025 11:5 1 PM CDT 05/29/2025 12:25 AM CDT Bar Gamble MD LAB BLOOD ORDERABLES Final R esult Performing Organization Address City/[facility]/ZIP Co de Phone Number [facility] Department [place] [address] * (ABNORMAL) Basic metabolic panel (05/28/2025 11:51 PM CDT) Pathologist [facility] Sodium 138 135 - 145 mmol/L Potassium, pl 4.1 3.3 - 4.9 mmol/L [facility] Chloride 101 97 - 110 mmol/L [facility] CO2 25 22 - 32 mmol/L [facility] Anion gap 12 2 - 15 mmol/L [facility] BUN 56(H) 6 - 25 mg/dL [facility] Creatinine 1.87(H) 0.80 - 1.30 mg/dL [facility] Glucose 234(H) 70 - 199 mg/dL [facility] Comment: Interpretive Data Fasting glucose >/= [...] 2022. Calcium 8.5 8.5 - 10.3 mg/dL [facility] Blood 05/28/2025 11:5 1 PM CDT 05/29/2025 12:25 AM CDT Addy Tapia MD LAB BLOOD ORDERABLES Fin al Result Performing Organization Address [facility]/ZIP Co de Phone Number [facility] Department [place] [address] * (ABNORMAL) POCT glucose (05/28/2025 11:45 PM CDT) Pathologist [facility] Glucose, POC 233(H) 70 - 199 mg/dL Blood 05/28/2025 11:4 5 PM CDT 05/28/2025 11:45 PM CDT us Addy Tapia MD LAB POCT ORDERABLES - DE VICE Final Result Performing Organization Address City/[facility]/ZIP Co de Phone Number [facility] [place] [address] * ECG 12 lead (05/28/2025 11:29 PM CDT) [facility] Ventricular Rate EKG/Min 101 BPM [facility] Atrial Rate 101 BPM [facility] NM-Interval (MSEC) 132 ms [facility] QRS-Interval (MSEC) 66 ms [facility] QT-Interval (MSEC) 350 ms [facility] QTc 453 ms [facility] P [place] 67 degrees [facility] R [place] 55 degrees [facility] T [place] -7 degrees [facility] Diagnosis Sinus tachycardia with Premature atrial complexes Poor r wave progression associated with abnormal lead placement, obesity, pulmonary disease, anterior infarction. noted 01-JUL-2021) possible inferior infarction noted April 08, 2025 Abnormal ECG When compared with ECG of 02-MAY-2025 16:11, NM interval has decreased Incomplete right bundle branch block is no longer Present Confirmed by MERARY ZEPEDA M.D ([id number]) on 05/29/2025 10:01:54 AM [facility] 05/28/2025 11:2 9 PM CDT 05/29/2025 10:01 AM CDT us Zev Cowart MD PhD ECG ORDERABLES Final R esult [facility] * (ABNORMAL) POCT glucose (05/28/2025 8:08 PM CDT) Glucose, POC 246(H) 70 - 199 mg/dL Blood 05/28/2025 8:08 PM CDT 05/28/2025 8:08 PM CDT us Addy Tapia MD LAB POCT ORDERABLES - DE VICE Final Result [facility] [place] [address] * XR Chest 1 View (05/28/2025 8:06 [...] Performing Organization Address [facility]/State/ZIP Co de Phone Number [facility] [employer] [place] [address] * (ABNORMAL) eGFR (05/28/2025 4:14 PM CDT) [...] ORDERABLES Fin al Result Performing Organization Address City/[facility]/ZIP Co de Phone [facility] [place] [address] * (ABNORMAL) Basic metabolic panel (05/28/2025 4:14 PM CDT) Pathologist [facility] Sodium 139 135 - 145 mmol/L Potassium, pl 4.4 3.3 - 4.9 mmol/L [facility] Chloride 104 97 - 110 mmol/L [facility] CO2 26 22 - 32 mmol/L [facility] Anion gap 9 2 - 15 mmol/L [facility] BUN 60(H) 6 - 25 mg/dL [facility] Creatinine 2.02(H) 0.80 - 1.30 mg/dL [facility] Glucose 278(H) 70 - 199 mg/dL [facility] Comment: Interpretive Data Fasting glucose >/= [...] 2022. Calcium 8.9 8.5 - 10.3 mg/dL [facility] Blood 05/28/2025 4:14 PM CDT 05/28/2025 4:29 PM CDT Addy Tapia MD LAB BLOOD ORDERABLES Fin al Result [facility] [place] [address] * (ABNORMAL) POCT glucose (05/28/2025 4:13 PM CDT) Glucose, POC 275(H) 70 - 199 mg/dL Blood 05/28/2025 4:13 PM CDT 05/28/2025 4:13 PM CDT Addy Tapia MD LAB POCT ORDERABLES - DE VICE Final Result [facility] [place] [address] * RN FACULTY Evaluation and Treatment (05/28/2025 12:22 PM CDT) Narrative Katerina Castro SLP - 05/28/2025 12:22 PM CDT Katerina Castro SLP 05/28/2025 1:20 PM Speech-Language Pathology: Clinical Bedside Swallow HPI/PMH 59 y.o. male with history of AL [...] therapies evaluation. 05/21 OHT, extubated 05/22 Passed ceasar swallow screen. 05/28: Colonic ileus resolved, consult to RN FACULTY versus need to start EN if he [...] regular/regular, per pt report General Information Gosia William Asuncion 05/28/25 General Observations: Pt seated upright in [...] Aspiration Risk: No aspiration risk (170-200) Plan RN FACULTY Frequency of Services during current admission: One-time visit (Discharge from this service) RN FACULTY Recommendation (Add'l Services): No further RN FACULTY indicated Next Visit Plan:No further ST warranted Additional Referrals: RD f/u Please reference care plan for treatment goals, if indicated. Discharge Summary Statement If this is the last swallow therapy visit, this serves as the discharge summary. Addy Tapia MD RN FACULTY ORDERABLES Final Re sult * POCT glucose (05/28/2025 11:08 AM CDT) Glucose, POC 166 70 - 199 mg/dL Blood 05/28/2025 11:0 8 AM CDT 05/28/2025 11:08 AM CDT Addy Tapia MD LAB POCT ORDERABLES - DE VICE Final Result Performing Organization Address [facility] Co de Phone Number [facility] [employer] [place] [address] * (ABNORMAL) eGFR (05/28/2025 9:58 AM CDT) [...] ORDERABLES Fin al Result Performing Organization Address City/[facility]/ZIP Co de Phone Number [facility] [place] [address] * (ABNORMAL) Basic metabolic panel (05/28/2025 9:58 AM CDT) Sodium 142 135 - 145 mmol/L Potassium, pl 3.6 3.3 - 4.9 mmol/L [facility] Chloride 105 97 - 110 mmol/L [facility] CO2 27 22 - 32 mmol/L [facility] Anion gap 10 2 - 15 mmol/L [facility] BUN 64(H) 6 - 25 mg/dL [facility] Creatinine 2.23(H) 0.80 - 1.30 mg/dL [facility] Glucose 134 70 - 199 mg/dL [facility] Comment: Interpretive Data Fasting glucose >/= [...] 2022. Calcium 9.0 8.5 - 10.3 mg/dL [facility] Blood 05/28/2025 9:58 AM CDT 05/28/2025 10:10 AM CDT Addy Tapia MD LAB BLOOD ORDERABLES Fin al Result [facility] [place] [address] * Tacrolimus level trough (05/28/2025 8:30 AM CDT) [facility] Tacrolimus trough 4.2 ng/mL Comment: Interpretive Data Testing performed by liquid chromatography-tandem mass spectrometry. Therapeutic concentrations vary depending on type of transplanted organ and time elapsed since transplant. Typical trough concentrations range from 5-15 ng/mL. This test was developed and its performance characteristics determined by the [facility] consistent with CLIA requirements. This test has not been cleared or approved by the [place] Food and Drug administration. Current interpretive data last reviewed 2020. Blood 05/28/2025 8:30 AM CDT 05/28/2025 9:06 AM CDT us Addy Tapia MD LAB BLOOD ORDERABLES Fin al Result Performing Organization Address [facility] Phone Number [facility] [place] [address] * POCT glucose (05/28/2025 7:44 AM CDT) Glucose, POC 126 70 - 199 mg/dL Blood 05/28/2025 7:44 AM CDT 05/28/2025 7:44 AM CDT us Addy Tapia MD LAB POCT ORDERABLES - DE VICE Final Result Performing Organization Address [facility] Phone Number [facility] [place] [address] * POCT glucose (05/28/2025 4:16 AM CDT) Glucose, POC 187 70 - 199 mg/dL Blood 05/28/2025 4:16 AM CDT 05/28/2025 4:16 AM CDT us Addy Tapia MD LAB POCT ORDERABLES - DE VICE Final Result Performing Organization Address [facility] [place] [address] * Potassium, whole blood (05/28/2025 2:01 AM CDT) Potassium, bld 3.5 3.3 - 4.9 mmol/L Blood 05/28/2025 2:01 AM CDT 05/28/2025 2:22 AM CDT us Addy Tapia MD LAB BLOOD ORDERABLES Fin al Result Performing Organization Address [facility] de Phone Number [facility] [place] [address] * Tacrolimus level trough (05/28/2025 2:01 AM CDT) [facility] Tacrolimus trough 5.8 ng/mL Comment: Interpretive Data Testing performed by liquid chromatography-tandem mass spectrometry. Therapeutic concentrations vary depending on type of transplanted organ and time elapsed since transplant. Typical trough concentrations range from 5-15 ng/mL. This test was developed and its performance characteristics determined by the [facility] consistent with CLIA requirements. This test has not been cleared or approved by the US Food and Drug administration. Current interpretive data last reviewed 2020. Blood 05/28/2025 2:01 AM CDT 05/28/2025 2:28 AM CDT Zev Cowart MD PhD LAB BLOOD ORDERABLES Fi nal Result Performing Organization Address [facility] de Phone Number [facility] [place] [address] * (ABNORMAL) CBC without differential (05/28/2025 2:01 AM CDT) [facility] WBC 11.31(H) 3.80 - 9.90 K/cumm Hgb 8.2(L) 13.0 - 17.5 g/dL [facility] Hct 24.6(L) 38.9 - 50.3 % [facility] Plt 143(L) 150 - 400 K/cumm [facility] MPV 11.1 9.1 - 12.3 fL [facility] RBC 3.02(L) 4.30 - 5.80 M/cumm [facility] MCV 81.5 81.3 - 96.4 fL [facility] MCH 27.2 27.1 - 33.3 pg [facility] MCHC 33.3 32.3 - 35.7 g/dL [facility] RDW CV 14.8 11.1 - 14.9 % [facility] RDW SD 43.8 35.7 - 48.1 fL [facility] NRBC abs 0.00 0.00 - 0.01 K/cumm [facility] Blood 05/28/2025 2:01 AM CDT 05/28/2025 2:28 AM CDT Addy Tapia MD LAB BLOOD ORDERABLES Fin al Result Performing Organization Address City/[facility] Co de Phone Number [facility] [employer] [place] [address] * Phosphorus (05/28/2025 2:01 AM CDT) Phosphorus, pl 2.6 2.3 - 4.5 mg/dL Blood 05/28/2025 2:01 AM CDT 05/28/2025 2:28 AM CDT Addy Tapia MD LAB BLOOD ORDERABLES Fin al Result Performing Organization Address [facility] de Phone Number [facility] [employer] [place] [address] * Magnesium (05/28/2025 2:01 AM CDT) Magnesium 2.0 1.4 - 2.5 mg/dL Blood 05/28/2025 2:01 AM CDT 05/28/2025 2:28 AM CDT Addy Tapia MD LAB BLOOD ORDERABLES Fin al Result Performing Organization Address [facility] de Phone Number [facility] [employer] [place] [address] * (ABNORMAL) Hepatic function panel (05/28/2025 2:01 AM CDT) Bilirubin, total 0.8 0.1 - 1.2 mg/dL Bilirubin, direct 0.5(H) 0.1 - 0.3 mg/dL [facility] Protein, pl 5.7(L) 6.5 - 8.5 g/dL [facility] Albumin 3.7 3.5 - 5.0 g/dL [facility] Alk phos 132(H) 40 - 130 Units/L [facility] ALT 21 7 - 55 Units/L [facility] AST 17 10 - 50 Units/L [facility] Blood 05/28/2025 2:01 AM CDT 05/28/2025 2:28 AM CDT us Bar Gamble MD LAB BLOOD ORDERABLES Final R esult [facility] [place] [address] * (ABNORMAL) eGFR (05/27/2025 11:43 PM CDT) [...] 3 PM CDT 05/28/2025 12:08 AM CDT us Addy Tapia MD LAB BLOOD ORDERABLES Fin al Result [facility] Department [place] [address] * (ABNORMAL) Basic metabolic panel (05/27/2025 11:43 PM CDT) Sodium 149(H) 135 - 145 mmol/L Potassium, pl 3.7 3.3 - 4.9 mmol/L [facility] Chloride 108 97 - 110 mmol/L [facility] CO2 29 22 - 32 mmol/L [facility] Anion gap 12 2 - 15 mmol/L [facility] BUN 68(H) 6 - 25 mg/dL [facility] Creatinine 2.18(H) 0.80 - 1.30 mg/dL [facility] Glucose 158 70 - 199 mg/dL [facility] Comment: Interpretive Data Fasting glucose >/= [...] 2022. Calcium 9.1 8.5 - 10.3 mg/dL [facility] Blood 05/27/2025 11:4 3 PM CDT 05/28/2025 12:08 AM CDT Addy Tapia MD LAB BLOOD ORDERABLES Fin al Result Performing Organization Address [facility]/ZIP Co de Phone Number [facility] Department [place] [address] * POCT glucose (05/27/2025 11:00 PM CDT) Glucose, POC 120 70 - 199 mg/dL Blood 05/27/2025 11:0 0 PM CDT 05/27/2025 11:00 PM CDT Addy Tapia MD LAB POCT ORDERABLES - DE VICE Final Result [facility] [place] [address] * XR Chest 1 View (05/27/2025 8:57 PM CDT) Anatomical Region Laterality Modality Body, Chest N/A Computed Radiogr aphy 05/28/2025 9:57 AM CDT Impressions 05/28/2025 12:45 PM CDT The current study is compared with the prior radiograph dated 05/26/2025 at 6:39 PM Median sternotomy plates in place. Mediastinal and pericardial drains in place. Interval removal of [place] catheter. Gastric tube courses below the hemidiaphragm and terminates below the [id number]. A right internal jugular catheter is in [...] pericardial drains in place. Interval removal of [place] catheter. Gastric tube courses below the hemidiaphragm and terminates below the [id number]. A right internal jugular catheter is in [...] (ABNORMAL) POCT glucose (05/27/2025 7:49 PM CDT) [facility] Glucose, POC 241(H) 70 - 199 mg/dL Blood 05/27/2025 7:49 PM CDT 05/27/2025 7:49 PM CDT Addy Tapia MD LAB POCT ORDERABLES - DE VICE Final Result Performing Organization Address [facility] Co de Phone Number [facility] [employer] [place] [address] * (ABNORMAL) POCT glucose (05/27/2025 5:26 PM CDT) [facility] Glucose, POC 207(H) 70 - 199 mg/dL Comment:Glu2: RN/MD Notified Glucose comment 1 Glu2: RN/MD Notified [facility] Blood 05/27/2025 5:26 PM CDT 05/27/2025 5:26 PM CDT Addy Tapia MD LAB POCT ORDERABLES - DE VICE Final Result Performing Organization Address [facility] Co de Phone Number [facility] [employer] [place] [address] * (ABNORMAL) eGFR (05/27/2025 5:21 PM CDT) [facility] eGFR 32(L) >=60 mL/min/1. 73 m2 Comment: [...] CDT Addy Tapia MD LAB BLOOD ORDERABLES [facility] al Result [facility] [place] [address] * (ABNORMAL) Basic metabolic panel (05/27/2025 5:21 PM CDT) Sodium 149(H) 135 - 145 mmol/L Potassium, pl 4.0 3.3 - 4.9 mmol/L [facility] Chloride 108 97 - 110 mmol/L [facility] CO2 29 22 - 32 mmol/L [facility] Anion gap 12 2 - 15 mmol/L [facility] BUN 71(H) 6 - 25 mg/dL [facility] Creatinine 2.27(H) 0.80 - 1.30 mg/dL [facility] Glucose 241(H) 70 - 199 mg/dL [facility] Comment: Interpretive Data Fasting glucose >/= [...] 2022. Calcium 9.5 8.5 - 10.3 mg/dL [facility] Blood 05/27/2025 5:21 PM CDT 05/27/2025 5:55 PM CDT Addy Tapia MD LAB BLOOD ORDERABLES Fin al Result [facility] [place] [address] * POCT glucose (05/27/2025 12:03 PM CDT) Glucose, POC 194 70 - 199 mg/dL Blood 05/27/2025 12:0 3 PM CDT 05/27/2025 12:03 PM CDT Addy Tapia MD LAB POCT ORDERABLES - DE VICE Final Result Performing Organization Address City/[facility] Co de Phone Number [facility] Department [place] [employer] [place] [address] * (ABNORMAL) eGFR (05/27/2025 9:55 AM CDT) [...] 9:55 AM CDT 05/27/2025 10:26 AM CDT us Addy Tapia MD LAB BLOOD ORDERABLES [facility] al Result [facility] [place] [address] * (ABNORMAL) Basic metabolic panel (05/27/2025 9:55 AM CDT) Sodium 150(H) 135 - 145 mmol/L Potassium, pl 3.9 3.3 - 4.9 mmol/L [facility] Comment:Hemolyzed; Potassium value may be falsely elevated by as much as 0.3-0.5 mmol/L. Suggest redraw and reanalysis. Chloride 107 97 - 110 mmol/L [facility] CO2 29 22 - 32 mmol/L [facility] Anion gap 14 2 - 15 mmol/L [facility] BUN 77(H) 6 - 25 mg/dL [facility] Creatinine 2.37(H) 0.80 - 1.30 mg/dL [facility] Glucose 157 70 - 199 mg/dL [facility] Comment: Interpretive Data Fasting glucose >/= [...] 2022. Calcium 9.5 8.5 - 10.3 mg/dL [facility] Blood 05/27/2025 9:55 AM CDT 05/27/2025 10:26 AM CDT Addy Tapia MD LAB BLOOD ORDERABLES Fin al Result Performing Organization Address [facility] Co de Phone Number [facility] [place] [address] * POCT glucose (05/27/2025 7:36 AM CDT) Glucose, POC 155 70 - 199 mg/dL Comment:Glu2: RN/MD Notified Glucose comment 1 Glu2: RN/MD Notified [facility] Blood 05/27/2025 7:36 AM CDT 05/27/2025 7:36 AM CDT Addy Tapia MD LAB POCT ORDERABLES - DE VICE Final Result Performing Organization Address [facility] de Phone Number [facility] [employer] [place] [address] * Oxyhemoglobin, pulmonary artery (05/27/2025 4:34 AM CDT) Oxyhemoglobin, PA 73.9 % Comment: Interpretive Data No reference range established. Current interpretive data was last revised 2020. Blood 05/27/2025 4:34 AM CDT 05/27/2025 5:58 AM CDT Addy Tapia MD LAB BLOOD ORDERABLES Fin al Result Performing Organization Address [facility] Co de Phone Number [facility] [employer] [place] [address] * (ABNORMAL) Hemoglobin total, pulmonary artery (05/27/2025 4:34 AM CDT) Hemoglobin total, PA 8.6(L) 13.0 - 17.5 g/dL Blood 05/27/2025 4:34 AM CDT 05/27/2025 5:58 AM CDT Zev Cowart MD PhD LAB BLOOD ORDERABLES Fi nal Result Performing Organization Address [facility] de Phone Number [facility] [employer] [place] [address] * Potassium, whole blood (05/27/2025 4:34 AM CDT) Potassium, bld 3.8 3.3 - 4.9 mmol/L Blood 05/27/2025 4:34 AM CDT 05/27/2025 5:58 AM CDT Bar Gamble MD LAB BLOOD ORDERABLES Final R esult Performing Organization Address [facility] Phone Number [facility] [employer] [place] [address] * Tacrolimus level trough (05/27/2025 4:34 AM CDT) Tacrolimus trough 5.6 ng/mL Comment: Interpretive Data Testing performed by liquid chromatography-tandem mass spectrometry. Therapeutic concentrations vary depending on type of transplanted organ and time elapsed since transplant. Typical trough concentrations range from 5-15 ng/mL. This test was developed and its performance characteristics determined by the [facility] consistent with CLIA requirements. This test has not been cleared or approved by the [place] Food and Drug administration. Current interpretive data last reviewed 2020. Blood 05/27/2025 4:34 AM CDT 05/27/2025 6:07 AM CDT Zev Cowart MD PhD LAB BLOOD ORDERABLES Fi nal Result Performing Organization Address [facility] de Phone Number [facility] [employer] [place] [address] * Lactate, whole blood (05/27/2025 4:34 AM CDT) Lactate, bld 0.9 0.7 - 2.0 mmol/L Blood 05/27/2025 4:34 AM CDT 05/27/2025 5:58 AM CDT Zev Cowart MD PhD LAB BLOOD ORDERABLES Fi nal Result Performing Organization Address [facility] de Phone Number [facility] [place] [address] * (ABNORMAL) Blood gas, arterial (05/27/2025 4:34 AM CDT) pH, Art 7.44 7.35 - 7.45 PCO2, Arterial 42 35 - 45 mmHg [facility] PO2, Arterial 82(L) 83 - 108 mmHg [facility] HCO3 Art (Calculated) 30 20 - 30 mmol/L [facility] BE, art 4 mmol/L [facility] Comment: Interpretive Data No Reference Range Established Current Interpretive Data was last revised on 2017 O2 Sat Art (Measured) 97(H) 90 - 95 % [facility] Blood 05/27/2025 4:34 AM CDT 05/27/2025 5:58 AM CDT Addy Tapia MD LAB BLOOD ORDERABLES Fin al Result Performing Organization Address [facility] de Phone Number [facility] [place] [address] * POCT glucose (05/27/2025 3:24 AM CDT) Glucose, POC 169 70 - 199 mg/dL Blood 05/27/2025 3:24 AM CDT 05/27/2025 3:24 AM CDT Addy Tapia MD LAB POCT ORDERABLES - DE VICE Final Result Performing Organization Address [facility] Co de Phone Number [facility] [employer] [place] [address] * Antibody identification (05/27/2025 1:49 AM CDT) Antibody ID 1 Anti-CD38 Comment:Panreactive -CD38 on reagent RBCs reacting with anti-CD38 therapy. DTT treatment removes cell surface CD38 and allows detection of common clinically significant antibodies except those against Dilma antigens. TRANSFUSION 2015;[id number] Blood 05/27/2025 1:49 AM CDT 05/27/2025 1:49 AM CDT us Libia Suarez NP LAB BLOOD BANK TEST ORDERABLE S Final Result Performing Organization Address [facility] Co de Phone Number [facility] [employer] [place] [address] * POCT glucose (05/26/2025 11:58 PM CDT) Glucose, POC 183 70 - 199 mg/dL Blood 05/26/2025 11:5 8 PM CDT 05/26/2025 11:58 PM CDT Addy Tapia MD LAB POCT ORDERABLES - DE VICE Final Result Performing Organization Address [facility] Co de Phone Number [facility] [employer] [place] [address] * Potassium, whole blood (05/26/2025 11:53 PM CDT) Potassium, bld 3.5 3.3 - 4.9 mmol/L Blood 05/26/2025 11:5 3 PM CDT 05/27/2025 12:07 AM CDT Addy Tapia MD LAB BLOOD ORDERABLES Fin al Result Performing Organization Address [facility] de Phone Number DULCE MARIA [facility] Department [place] [address] * (ABNORMAL) eGFR (05/26/2025 11:53 PM CDT) [facility] eGFR 26(L) >=60 mL/min/1. 73 m2 Comment: [...] PM CDT 05/27/2025 12:35 AM CDT Addy Jamar Tapia MD LAB BLOOD ORDERABLES Fin al Result Performing Organization Address [facility] de Phone Number DULCE MARIA [facility] Department [place] [address] * (ABNORMAL) CBC without differential (05/26/2025 11:53 PM CDT) [facility] WBC 11.13(H) 3.80 - 9.90 K/cumm Hgb 8.3(L) 13.0 - 17.5 g/dL [facility] Hct 25.8(L) 38.9 - 50.3 % [facility] Plt 137(L) 150 - 400 K/cumm [facility] MPV 11.3 9.1 - 12.3 fL [facility] RBC 3.12(L) 4.30 - 5.80 M/cumm [facility] MCV 82.7 81.3 - 96.4 fL [facility] MCH 26.6(L) 27.1 - 33.3 pg [facility] MCHC 32.2(L) 32.3 - 35.7 g/dL [facility] RDW CV 15.1(H) 11.1 - 14.9 % [facility] RDW SD 45.7 35.7 - 48.1 fL [facility] NRBC abs 0.00 0.00 - 0.01 K/cumm [facility] Blood 05/26/2025 11:5 3 PM CDT 05/27/2025 12:23 AM CDT Addy Tapia MD LAB BLOOD ORDERABLES Fin al Result Performing Organization Address City/[facility]/ZIP Co de Phone Number [facility] Department [place] [employer] [place] [address] * (ABNORMAL) Type and screen (05/26/2025 11:53 PM CDT) ABO Rh O Positive Poppy, indirect Positive(A) [facility] Blood 05/26/2025 11:5 3 PM CDT 05/27/2025 12:25 AM CDT Narrative [facility] - 05/27/2025 1:49 AM CDT Has the patient had Daratumumab or Isatuximab in the past 6 months?->Unknown Libia Suarez NP LAB BLOOD BANK TEST ORDERABLE S Final Result [facility] Department [place] [employer] [place] [address] * Phosphorus (05/26/2025 11:53 PM CDT) Phosphorus, pl 4.3 2.3 - 4.5 mg/dL Blood 05/26/2025 11:5 3 PM CDT 05/27/2025 12:27 AM CDT Addy Tapia MD LAB BLOOD ORDERABLES Fin al Result Performing Organization Address City/[facility]/ZIP Co de Phone Number [facility] [place] [address] * Magnesium (05/26/2025 11:53 PM CDT) Magnesium 2.4 1.4 - 2.5 mg/dL Blood 05/26/2025 11:5 3 PM CDT 05/27/2025 12:27 AM CDT Addy Tapia MD LAB BLOOD ORDERABLES Fin al Result Performing Organization Address [facility] de Phone Number [facility] [place] [address] * (ABNORMAL) Hepatic function panel (05/26/2025 11:53 PM CDT) Bilirubin, total 0.8 0.1 - 1.2 mg/dL Bilirubin, direct 0.4(H) 0.1 - 0.3 mg/dL [facility] Protein, pl 6.1(L) 6.5 - 8.5 g/dL [facility] Albumin 4.0 3.5 - 5.0 g/dL [facility] Alk phos 141(H) 40 - 130 Units/L [facility] ALT 25 7 - 55 Units/L [facility] AST 25 10 - 50 Units/L [facility] Blood 05/26/2025 11:5 3 PM CDT 05/27/2025 12:27 AM CDT Bar Gamble MD LAB BLOOD ORDERABLES Final R esult Performing Organization Address City/[facility] Co de Phone Number [facility] Department [place] [address] * (ABNORMAL) Basic metabolic panel (05/26/2025 11:53 PM CDT) Pathologist [facility] Sodium 151(H) 135 - 145 mmol/L Potassium, pl 3.8 3.3 - 4.9 mmol/L [facility] Chloride 109 97 - 110 mmol/L [facility] CO2 27 22 - 32 mmol/L [facility] Anion gap 15 2 - 15 mmol/L [facility] BUN 81(H) 6 - 25 mg/dL [facility] Creatinine 2.69(H) 0.80 - 1.30 mg/dL [facility] Glucose 176 70 - 199 mg/dL [facility] Comment: Interpretive Data Fasting glucose >/= [...] 2022. Calcium 9.3 8.5 - 10.3 mg/dL [facility] Blood 05/26/2025 11:5 3 PM CDT 05/27/2025 12:27 AM CDT Addy Tapia MD LAB BLOOD ORDERABLES Fin al Result [facility] Department [place] [address] * POCT glucose (05/26/2025 7:51 PM CDT) Glucose, POC 142 70 - 199 mg/dL Blood 05/26/2025 7:51 PM CDT 05/26/2025 7:51 PM CDT Addy Tapia MD LAB POCT ORDERABLES - DE VICE Final Result DULCE MARIA [facility] Department [place] [address] * XR Chest 1 View (05/26/2025 6:43 PM CDT) Anatomical Region Laterality Modality Body, Chest N/A Digital Radiogra phy 05/27/2025 9:07 AM CDT Impressions 05/27/2025 9:07 AM CDT Sternal fixation plates again seen. Right internal jugular [place] catheter tip over main pulmonary artery. Right [...] new consolidation, or pneumothorax. Electronically signed by: Zve Jaimes M.D. Narrative 05/27/2025 9:07 AM CDT EXAMINATION: 1 view chest radiograph COMPARISON: 05/25/2025 Procedure Note Zev Jaimes MD - 05/27/2025 EXAMINATION: 1 view chest radiograph COMPARISON: 05/25/2025 IMPRESSION: Sternal fixation plates again seen. Right internal jugular [place] catheter tip over main pulmonary artery. Right [...] 3:52 PM CDT 05/26/2025 4:04 PM CDT us Bar Gamble MD LAB BLOOD ORDERABLES Final R esult Performing Organization Address [facility]/ZIP Co de Phone Number [facility] Department [place] [employer] [place] [address] * (ABNORMAL) eGFR (05/26/2025 3:52 PM CDT) [...] Performing Organization Address [facility]/ZIP Co de Phone Number [facility] [place] [address] * (ABNORMAL) Basic metabolic panel (05/26/2025 3:52 PM CDT) Sodium 150(H) 135 - 145 mmol/L Potassium, pl 4.2 3.3 - 4.9 mmol/L [facility] Chloride 107 97 - 110 mmol/L [facility] CO2 26 22 - 32 mmol/L [facility] Anion gap 17(H) 2 - 15 mmol/L [facility] BUN 87(H) 6 - 25 mg/dL [facility] Creatinine 2.86(H) 0.80 - 1.30 mg/dL [facility] Glucose 168 70 - 199 mg/dL [facility] Comment: Interpretive Data Fasting glucose >/= [...] 2022. Calcium 9.8 8.5 - 10.3 mg/dL [facility] Blood 05/26/2025 3:52 PM CDT 05/26/2025 4:10 PM CDT Addy Tapia MD LAB BLOOD ORDERABLES Fin al Result [facility] Department [place] [address] * POCT glucose (05/26/2025 3:50 PM CDT) Glucose, POC 171 70 - 199 mg/dL Blood 05/26/2025 3:50 PM CDT 05/26/2025 3:50 PM CDT Addy Tapia MD LAB POCT ORDERABLES - DE VICE Final Result Performing Organization Address City/[facility] Co de Phone Number [facility] [place] [address] * Oxyhemoglobin, pulmonary artery (05/26/2025 2:22 PM CDT) Oxyhemoglobin, PA 83.2 % Comment: Interpretive Data No reference range established. Current interpretive data was last revised 2020. Blood 05/26/2025 2:22 PM CDT 05/26/2025 2:27 PM CDT us Addy Tapia MD LAB BLOOD ORDERABLES Fin al Result Performing Organization Address [facility] Co de Phone Number [facility] [place] [address] * (ABNORMAL) Hemoglobin total, pulmonary artery (05/26/2025 2:22 PM CDT) Hemoglobin total, PA 8.4(L) 13.0 - 17.5 g/dL Blood 05/26/2025 2:22 PM CDT 05/26/2025 2:27 PM CDT us Zev Cowart MD PhD LAB BLOOD ORDERABLES Fi nal Result Performing Organization Address [facility] Co de Phone Number [facility] [place] [address] * (ABNORMAL) Blood gas, arterial (05/26/2025 2:22 PM CDT) pH, Art 7.41 7.35 - 7.45 PCO2, Arterial 35 35 - 45 mmHg [facility] PO2, Arterial 137(H) 83 - 108 mmHg [facility] HCO3 Art (Calculated) 23 20 - 30 mmol/L [facility] BE, art -2 mmol/L [facility] Comment: Interpretive Data No Reference Range Established Current Interpretive Data was last revised on 2017 O2 Sat Art (Measured) 98(H) 90 - 95 % [facility] Blood 05/26/2025 2:22 PM CDT 05/26/2025 2:27 PM CDT Addy Tapia MD LAB BLOOD ORDERABLES Fin al Result Performing Organization Address [facility] de Phone Number [facility] [employer] [place] [address] * Oxyhemoglobin, pulmonary artery (05/26/2025 12:39 PM CDT) Oxyhemoglobin, PA 68.2 % Comment: Interpretive Data No reference range established. Current interpretive data was last revised 2020. Blood 05/26/2025 12:3 9 PM CDT 05/26/2025 12:50 PM CDT Addy Tapia MD LAB BLOOD ORDERABLES Fin al Result Performing Organization Address [facility] de Phone Number [facility] [employer] [place] [address] * (ABNORMAL) Hemoglobin total, pulmonary artery (05/26/2025 12:39 PM CDT) Hemoglobin total, PA 8.6(L) 13.0 - 17.5 g/dL Blood 05/26/2025 12:3 9 PM CDT 05/26/2025 12:50 PM CDT Zev Cowart MD PhD LAB BLOOD ORDERABLES Fi nal Result Performing Organization Address [facility] [place] [address] * Potassium, whole blood (05/26/2025 12:39 PM CDT) Potassium, bld 3.3 3.3 - 4.9 mmol/L Blood 05/26/2025 12:3 9 PM CDT 05/26/2025 12:50 PM CDT Bar Gamble MD LAB BLOOD ORDERABLES Final R esult Performing Organization Address [facility]/ZIP Co de Phone Number [facility] [place] [address] * (ABNORMAL) Blood gas, arterial (05/26/2025 12:39 PM CDT) pH, Art 7.40 7.35 - 7.45 PCO2, Arterial 34(L) 35 - 45 mmHg [facility] PO2, Arterial 146(H) 83 - 108 mmHg [facility] HCO3 Art (Calculated) 22 20 - 30 mmol/L [facility] BE, art -3 mmol/L [facility] Comment: Interpretive Data No Reference Range Established Current Interpretive Data was last revised on 2017 O2 Sat Art (Measured) 99(H) 90 - 95 % [facility] Blood 05/26/2025 12:3 9 PM CDT 05/26/2025 12:50 PM CDT Result [facility] Addy Tapia MD LAB BLOOD ORDERABLES Fin al Result Performing Organization Address [facility] Co de Phone Number [facility] [place] [address] * POCT glucose (05/26/2025 12:30 PM CDT) Glucose, POC 111 70 - 199 mg/dL Blood 05/26/2025 12:3 0 PM CDT 05/26/2025 12:30 PM CDT Result [facility] Addy Tapia MD LAB POCT ORDERABLES - DE VICE Final Result Performing Organization Address [facility] Co de Phone Number [facility] [place] [address] * (ABNORMAL) eGFR (05/26/2025 9:03 AM CDT) [...] MD LAB BLOOD ORDERABLES Fin al Result [facility] [place] [address] * POCT glucose (05/26/2025 9:03 AM CDT) Glucose, POC 111 70 - 199 mg/dL Blood 05/26/2025 9:03 AM CDT 05/26/2025 9:03 AM CDT Addy Tapia MD LAB POCT ORDERABLES - DE VICE Final Result [facility] [place] [address] * (ABNORMAL) Basic metabolic panel (05/26/2025 9:03 AM CDT) Sodium 147(H) 135 - 145 mmol/L Potassium, pl 3.8 3.3 - 4.9 mmol/L [facility] Chloride 106 97 - 110 mmol/L [facility] CO2 24 22 - 32 mmol/L [facility] Anion gap 17(H) 2 - 15 mmol/L [facility] BUN 89(H) 6 - 25 mg/dL [facility] Creatinine 2.79(H) 0.80 - 1.30 mg/dL [facility] Glucose 121 70 - 199 mg/dL [facility] Comment: Interpretive Data Fasting glucose >/= [...] 2022. Calcium 9.3 8.5 - 10.3 mg/dL [facility] Blood 05/26/2025 9:03 AM CDT 05/26/2025 9:24 AM CDT Addy Tapia MD LAB BLOOD ORDERABLES Fin al Result [facility] [place] [address] * POCT glucose (05/26/2025 7:38 AM CDT) Glucose, POC 114 70 - 199 mg/dL Blood 05/26/2025 7:38 AM CDT 05/26/2025 7:38 AM CDT Addy Tapia MD LAB POCT ORDERABLES - DE VICE Final Result Performing Organization Address City/[facility]/[place] [address] * POCT glucose (05/26/2025 7:06 AM CDT) Glucose, POC 114 70 - 199 mg/dL Blood 05/26/2025 7:06 AM CDT 05/26/2025 7:06 AM CDT Addy Tapia MD LAB POCT ORDERABLES - DE VICE Final Result Performing Organization Address [facility] [place] [address] * POCT glucose (05/26/2025 6:06 AM CDT) Glucose, POC 113 70 - 199 mg/dL Blood 05/26/2025 6:06 AM CDT 05/26/2025 6:06 AM CDT Addy Tapia MD LAB POCT ORDERABLES - DE VICE Final Result Performing Organization Address City/[facility]/ZIP Co de Phone Number [facility] [employer] [place] [address] * POCT glucose (05/26/2025 5:06 AM CDT) Glucose, POC 111 70 - 199 mg/dL Blood 05/26/2025 5:06 AM CDT 05/26/2025 5:06 AM CDT Addy Tapia MD LAB POCT ORDERABLES - DE VICE Final Result Performing Organization Address City/[facility]/ZIP Co de Phone Number [facility] [employer] [place] [address] * Tacrolimus level trough (05/26/2025 5:04 AM CDT) Tacrolimus trough 7.6 ng/mL Comment: Interpretive Data Testing performed by liquid chromatography-tandem mass spectrometry. Therapeutic concentrations vary depending on type of transplanted organ and time elapsed since transplant. Typical trough concentrations range from 5-15 ng/mL. This test was developed and its performance characteristics determined by the [facility] consistent with CLIA requirements. This test has not been cleared or approved by the [place] Food and Drug administration. Current interpretive data last reviewed 2020. Blood 05/26/2025 5:04 AM CDT 05/26/2025 5:20 AM CDT us Zev Cowart MD PhD LAB BLOOD ORDERABLES Fi nal Result Performing Organization Address [facility] Co de Phone Number [facility] Department [place] [address] * Potassium, whole blood (05/26/2025 4:04 AM CDT) Potassium, bld 4.1 3.3 - 4.9 mmol/L Blood 05/26/2025 4:04 AM CDT 05/26/2025 4:11 AM CDT us Bar Gamble MD LAB BLOOD ORDERABLES Final R esult Performing Organization Address City/[facility]/ZIP Co de Phone Number [facility] [employer] [place] [address] * POCT glucose (05/26/2025 4:02 AM CDT) Glucose, POC 105 70 - 199 mg/dL Blood 05/26/2025 4:02 AM CDT 05/26/2025 4:02 AM CDT Addy Tapia MD LAB POCT ORDERABLES - DE VICE Final Result Performing Organization Address [facility]/[place] [address] * POCT glucose (05/26/2025 3:11 AM CDT) Glucose, POC 94 70 - 199 mg/dL Blood 05/26/2025 3:11 AM CDT 05/26/2025 3:11 AM CDT Addy Tapia MD LAB POCT ORDERABLES - DE VICE Final Result Performing Organization Address [facility]/[place] [address] * POCT glucose (05/26/2025 2:10 AM CDT) Glucose, POC 110 70 - 199 mg/dL Blood 05/26/2025 2:10 AM CDT 05/26/2025 2:10 AM CDT Addy Tapia MD LAB POCT ORDERABLES - DE VICE Final Result Performing Organization Address [facility]/[place] [address] * POCT glucose (05/26/2025 1:05 AM CDT) Glucose, POC 101 70 - 199 mg/dL Blood 05/26/2025 1:05 AM CDT 05/26/2025 1:05 AM CDT Addy Tapia MD LAB POCT ORDERABLES - DE VICE Final Result Performing Organization Address City/[facility]/ZIP Co de Phone Number [facility] [place] [address] * Oxyhemoglobin, central venous (05/26/2025 12:04 AM CDT) Oxyhemoglobin, CV 78.7 % Comment: Interpretive Data No reference range established. Current interpretive data was last revised 2020. Blood 05/26/2025 12:0 4 AM CDT 05/26/2025 12:17 AM CDT Addy Tapia MD LAB BLOOD ORDERABLES Fin al Result Performing Organization Address City/[facility] Co de Phone Number [facility] [place] [address] * Oxyhemoglobin, pulmonary artery (05/26/2025 12:04 AM CDT) Oxyhemoglobin, PA 79.9 % Comment: Interpretive Data No reference range established. Current interpretive data was last revised 2020. Blood 05/26/2025 12:0 4 AM CDT 05/26/2025 12:17 AM CDT Addy Tapia MD LAB BLOOD ORDERABLES Fin al Result Performing Organization Address [facility] de Phone Number [facility] [employer] [place] [address] * Potassium, whole blood (05/26/2025 12:04 AM CDT) Potassium, bld 3.6 3.3 - 4.9 mmol/L Blood 05/26/2025 12:0 4 AM CDT 05/26/2025 12:17 AM CDT Addy Tapia MD LAB BLOOD ORDERABLES Fin al Result Performing Organization Address [facility] Co de Phone Number [facility] [place] [address] * (ABNORMAL) eGFR (05/26/2025 12:04 AM CDT) [...] 4 AM CDT 05/26/2025 12:25 AM CDT us Addy Tapia MD LAB BLOOD ORDERABLES [facility] al Result Performing Organization Address City/[facility]/ZIP Co de Phone [facility] [place] [address] * (ABNORMAL) Lactate, whole blood (05/26/2025 12:04 AM CDT) Lactate, bld 0.6(L) 0.7 - 2.0 mmol/L Blood 05/26/2025 12:0 4 AM CDT 05/26/2025 12:17 AM CDT us Zev Cowart MD PhD LAB BLOOD ORDERABLES nal Result Performing Organization Address City/[facility]/ZIP Co de Phone [facility] [place] [address] * (ABNORMAL) CBC without differential (05/26/2025 12:04 AM CDT) WBC 12.99(H) 3.80 - 9.90 K/cumm Hgb 8.7(L) 13.0 - 17.5 g/dL [facility] Hct 25.8(L) 38.9 - 50.3 % [facility] Plt 148(L) 150 - 400 K/cumm [facility] MPV 10.7 9.1 - 12.3 fL [facility] RBC 3.18(L) 4.30 - 5.80 M/cumm [facility] MCV 81.1(L) 81.3 - 96.4 fL [facility] MCH 27.4 27.1 - 33.3 pg [facility] MCHC 33.7 32.3 - 35.7 g/dL [facility] RDW CV 15.2(H) 11.1 - 14.9 % [facility] RDW SD 45.3 35.7 - 48.1 fL [facility] NRBC abs 0.00 0.00 - 0.01 K/cumm [facility] Blood 05/26/2025 12:0 4 AM CDT 05/26/2025 12:24 AM CDT Addy Tapia MD LAB BLOOD ORDERABLES Fin al Result Performing Organization Address [facility] de Phone Number [facility] [place] [address] * (ABNORMAL) Phosphorus (05/26/2025 12:04 AM CDT) Pathologist [facility] Phosphorus, pl 5.9(H) 2.3 - 4.5 mg/dL Blood 05/26/2025 12:0 4 AM CDT 05/26/2025 12:22 AM CDT Addy Tapia MD LAB BLOOD ORDERABLES Fin al Result Performing Organization Address [facility] de Phone Number [facility] [place] [address] * (ABNORMAL) Magnesium (05/26/2025 12:04 AM CDT) Magnesium 2.7(H) 1.4 - 2.5 mg/dL Blood 05/26/2025 12:0 4 AM CDT 05/26/2025 12:22 AM CDT Addy Tapia MD LAB BLOOD ORDERABLES Fin al Result Performing Organization Address [facility] Co de Phone Number [place] [address] * (ABNORMAL) Blood gas, arterial (05/26/2025 12:04 AM CDT) pH, Art 7.42 7.35 - 7.45 PCO2, Arterial 38 35 - 45 mmHg [facility] PO2, Arterial 100 83 - 108 mmHg [facility] HCO3 Art (Calculated) 25 20 - 30 mmol/L [facility] BE, art 0 mmol/L [facility] Comment: Interpretive Data No Reference Range Established Current Interpretive Data was last revised on 2017 O2 Sat Art (Measured) 98(H) 90 - 95 % [facility] Blood 05/26/2025 12:0 4 AM CDT 05/26/2025 12:17 AM CDT Addy Tapia MD LAB BLOOD ORDERABLES Fin al Result Performing Organization Address [facility]/ZIP Co de Phone Number [facility] One [facility] [place] [address] * (ABNORMAL) Hepatic function panel (05/26/2025 12:04 AM CDT) Bilirubin, total 0.8 0.1 - 1.2 mg/dL Bilirubin, direct 0.5(H) 0.1 - 0.3 mg/dL [facility] Protein, pl 6.0(L) 6.5 - 8.5 g/dL [facility] Albumin 4.0 3.5 - 5.0 g/dL [facility] Alk phos 151(H) 40 - 130 Units/L [facility] ALT 32 7 - 55 Units/L [facility] AST 30 10 - 50 Units/L [facility] Blood 05/26/2025 12:0 4 AM CDT 05/26/2025 12:22 AM CDT Bar Gamble MD LAB BLOOD ORDERABLES Final R esult [facility] One [facility] Department [place] [address] * (ABNORMAL) Basic metabolic panel (05/26/2025 12:04 AM CDT) Sodium 145 135 - 145 mmol/L Potassium, pl 3.5 3.3 - 4.9 mmol/L [facility] Chloride 106 97 - 110 mmol/L [facility] CO2 26 22 - 32 mmol/L [facility] Anion gap 13 2 - 15 mmol/L [facility] BUN 90(H) 6 - 25 mg/dL [facility] Creatinine 2.92(H) 0.80 - 1.30 mg/dL [facility] Glucose 106 70 - 199 mg/dL [facility] Comment: Interpretive Data Fasting glucose >/= [...] 2022. Calcium 9.5 8.5 - 10.3 mg/dL [facility] Blood 05/26/2025 12:0 4 AM CDT 05/26/2025 12:22 AM CDT Addy Tapia MD LAB BLOOD ORDERABLES Fin al Result [facility] Department [place] [address] * POCT glucose (05/25/2025 11:59 PM CDT) Glucose, POC 105 70 - 199 mg/dL Blood 05/25/2025 11:5 9 PM CDT 05/25/2025 11:59 PM CDT Addy Tapia MD LAB POCT ORDERABLES - DE VICE Final Result Performing Organization Address [facility] Co de Phone Number [facility] [place] [address] * XR Abdomen Ap 1 Vw (05/25/2025 [...] a colonic ileus. Electronically signed by: Bar Summesr M.D. Narrative 05/26/2025 6:03 AM CDT EXAMINATION: [...] a colonic ileus. Electronically signed by: Bar Zev Camden, M.D. Addy Tapia MD IMG XR PROCEDURES Final Result * POCT glucose (05/25/2025 10:16 PM CDT) Glucose, POC 110 70 - 199 mg/dL Blood 05/25/2025 10:1 6 PM CDT 05/25/2025 10:16 PM CDT Addy Tapia MD LAB POCT ORDERABLES - DE VICE Final Result Performing Organization Address [facility] Co de Phone Number [facility] [employer] [place] [address] * POCT glucose (05/25/2025 8:46 PM CDT) Glucose, POC 119 70 - 199 mg/dL Blood 05/25/2025 8:46 PM CDT 05/25/2025 8:46 PM CDT Addy Tapia MD LAB POCT ORDERABLES - DE VICE Final Result Performing Organization Address [facility] Phone Number [facility] Department [place] [employer] [place] [address] * XR Chest 1 View (05/25/2025 8:10 [...] tip of the right internal jugular approach [place] catheter projects over the main pulmonary artery. [...] tip of the right internal jugular approach [place]Jayne catheter projects over the main pulmonary artery. [...] - DE VICE Final Result [facility] One [facility] [place] [address] * Potassium, whole blood (05/25/2025 8:08 PM CDT) Pathologist [facility] Potassium, bld 3.8 3.3 - 4.9 mmol/L Blood 05/25/2025 8:08 PM CDT 05/25/2025 8:22 PM CDT Bar Gamble MD LAB BLOOD ORDERABLES Final R esult Performing Organization Address [facility] Co ma Phone Number [facility] [employer] [place] [address] * POCT glucose (05/25/2025 7:01 PM CDT) Glucose, POC 114 70 - 199 mg/dL Blood 05/25/2025 7:01 PM CDT 05/25/2025 7:01 PM CDT Result [facility] Addy Tapia MD LAB POCT ORDERABLES - DE VICE Final Result Performing Organization Address [facility] Phone Number [facility] [employer] [place] [address] * POCT glucose (05/25/2025 6:20 PM CDT) Glucose, POC 123 70 - 199 mg/dL Blood 05/25/2025 6:20 PM CDT 05/25/2025 6:20 PM CDT Addy Tapia MD LAB POCT ORDERABLES - DE VICE Final Result Performing Organization Address [facility] Phone Number [facility] [employer] [place] [address] * POCT glucose (05/25/2025 5:18 PM CDT) Glucose, POC 100 70 - 199 mg/dL Blood 05/25/2025 5:18 PM CDT 05/25/2025 5:18 PM CDT Addy Tapia MD LAB POCT ORDERABLES - DE VICE Final Result Performing Organization Address [facility] Co de Phone Number [facility] [place] [address] * (ABNORMAL) Hemoglobin total, pulmonary artery (05/25/2025 4:37 PM CDT) Hemoglobin total, PA 9.3(L) 13.0 - 17.5 g/dL Blood 05/25/2025 4:37 PM CDT 05/25/2025 4:48 PM CDT Bar Gamble MD LAB BLOOD ORDERABLES Final R esult Performing Organization Address [facility] Co de Phone Number [facility] [place] [address] * Potassium, whole blood (05/25/2025 4:37 PM CDT) Potassium, bld 3.8 3.3 - 4.9 mmol/L Blood 05/25/2025 4:37 PM CDT 05/25/2025 4:48 PM CDT Addy Tapia MD LAB BLOOD ORDERABLES Fin al Result Performing Organization Address [facility]/ZIP Co de Phone Number [facility] Department [place] [address] * (ABNORMAL) eGFR (05/25/2025 4:37 PM CDT) [...] 4:37 PM CDT 05/25/2025 4:50 PM CDT us Addy Tapia MD LAB BLOOD ORDERABLES Fin al Result [facility] One [facility] Department [place] [address] * (ABNORMAL) Basic metabolic panel (05/25/2025 4:37 PM CDT) [facility] Sodium 142 135 - 145 mmol/L Potassium, pl 3.7 3.3 - 4.9 mmol/L [facility] Chloride 103 97 - 110 mmol/L [facility] CO2 25 22 - 32 mmol/L [facility] Anion gap 14 2 - 15 mmol/L [facility] BUN 90(H) 6 - 25 mg/dL [facility] Creatinine 2.73(H) 0.80 - 1.30 mg/dL [facility] Glucose 122 70 - 199 mg/dL [facility] Comment: Interpretive Data Fasting glucose >/= [...] 2022. Calcium 8.9 8.5 - 10.3 mg/dL [facility] Blood 05/25/2025 4:37 PM CDT 05/25/2025 4:50 PM CDT Addy Tapia MD LAB BLOOD ORDERABLES Fin al Result Performing Organization Address [facility] Co de Phone Number [facility] [employer] [place] [address] * POCT glucose (05/25/2025 4:15 PM CDT) Glucose, POC 115 70 - 199 mg/dL Blood 05/25/2025 4:15 PM CDT 05/25/2025 4:15 PM CDT Addy Tapia MD LAB POCT ORDERABLES - DE VICE Final Result Performing Organization Address [facility] Co de Phone Number [facility] [employer] [place] [address] * POCT glucose (05/25/2025 3:18 PM CDT) Glucose, POC 130 70 - 199 mg/dL Blood 05/25/2025 3:18 PM CDT 05/25/2025 3:18 PM CDT Addy Tapia MD LAB POCT ORDERABLES - DE VICE Final Result Performing Organization Address City/[facility] Co de Phone Number [facility] [employer] [place] [address] * POCT glucose (05/25/2025 2:21 PM CDT) Glucose, POC 144 70 - 199 mg/dL Blood 05/25/2025 2:21 PM CDT 05/25/2025 2:21 PM CDT Addy Tapia MD LAB POCT ORDERABLES - DE VICE Final Result Performing Organization Address [facility] Co de Phone Number [facility] [place] [address] * POCT glucose (05/25/2025 1:04 PM CDT) Glucose, POC 165 70 - 199 mg/dL Blood 05/25/2025 1:04 PM CDT 05/25/2025 1:04 PM CDT Addy Tapia MD LAB POCT ORDERABLES - DE VICE Final Result Performing Organization Address [facility] [place] [address] * Oxyhemoglobin, pulmonary artery (05/25/2025 1:02 PM CDT) Oxyhemoglobin, PA 74.5 % Comment: Interpretive Data No reference range established. Current interpretive data was last revised 2020. Blood 05/25/2025 1:02 PM CDT 05/25/2025 1:12 PM CDT Result [facility] Addy Tapia MD LAB BLOOD ORDERABLES Fin al Result Performing Organization Address [facility] Co de Phone Number [facility] [place] [address] * (ABNORMAL) Hemoglobin total, pulmonary artery (05/25/2025 1:02 PM CDT) Hemoglobin total, PA 9.4(L) 13.0 - 17.5 g/dL Blood 05/25/2025 1:02 PM CDT 05/25/2025 1:12 PM CDT Zev Cowart MD PhD LAB BLOOD ORDERABLES Fi nal Result Performing Organization Address [facility] Co de Phone Number [facility] Department [place] [address] * Potassium, whole blood (05/25/2025 1:02 PM CDT) Potassium, bld 4.0 3.3 - 4.9 mmol/L Blood 05/25/2025 1:02 PM CDT 05/25/2025 1:12 PM CDT Bar Gamble MD LAB BLOOD ORDERABLES Final R esult Performing Organization Address [facility] de Phone Number [facility] [employer] [place] [address] * (ABNORMAL) Blood gas, arterial (05/25/2025 1:02 PM CDT) pH, Art 7.39 7.35 - 7.45 PCO2, Arterial 36 35 - 45 mmHg [facility] PO2, Arterial 102 83 - 108 mmHg [facility] HCO3 Art (Calculated) 23 20 - 30 mmol/L [facility] BE, art -2 mmol/L [facility] Comment: Interpretive Data No Reference Range Established Current Interpretive Data was last revised on 2017 O2 Sat Art (Measured) 99(H) 90 - 95 % [facility] Blood 05/25/2025 1:02 PM CDT 05/25/2025 1:12 PM CDT us Addy Tapia MD LAB BLOOD ORDERABLES Fin al Result Performing Organization Address [facility] Co de Phone Number [facility] [employer] [place] [address] * POCT glucose (05/25/2025 11:58 AM CDT) Glucose, POC 144 70 - 199 mg/dL Blood 05/25/2025 11:5 8 AM CDT 05/25/2025 11:58 AM CDT us Addy Tapia MD LAB POCT ORDERABLES - DE VICE Final Result Performing Organization Address [facility] Co ma Phone Number [facility] [place] [address] * POCT glucose (05/25/2025 11:10 AM CDT) Glucose, POC 130 70 - 199 mg/dL Blood 05/25/2025 11:1 0 AM CDT 05/25/2025 11:10 AM CDT Addy Tapia MD LAB POCT ORDERABLES - DE VICE Final Result Performing Organization Address [facility] Phone Number [facility] [employer] [place] [address] * POCT glucose (05/25/2025 10:01 AM CDT) Glucose, POC 113 70 - 199 mg/dL Blood 05/25/2025 10:0 1 AM CDT 05/25/2025 10:01 AM CDT Addy Tapia MD LAB POCT ORDERABLES - DE VICE Final Result Performing Organization Address [facility] Phone Number [facility] [employer] [place] [address] * POCT glucose (05/25/2025 9:06 AM CDT) Glucose, POC 100 70 - 199 mg/dL Blood 05/25/2025 9:06 AM CDT 05/25/2025 9:06 AM CDT Addy Tapia MD LAB POCT ORDERABLES - DE VICE Final Result Performing Organization Address City/[facility]/ZIP Co de Phone Number [facility] Department [place] [address] * POCT glucose (05/25/2025 8:01 AM CDT) Pathologist [facility] Glucose, POC 107 70 - 199 mg/dL Blood 05/25/2025 8:01 AM CDT 05/25/2025 8:01 AM CDT us Addy Tapia MD LAB POCT ORDERABLES - DE VICE Final Result Performing Organization Address [facility] Co de Phone Number [facility] Department [place] [address] * Potassium, whole blood (05/25/2025 7:59 AM CDT) [facility] Potassium, bld 3.8 3.3 - 4.9 mmol/L Blood 05/25/2025 7:59 AM CDT 05/25/2025 8:14 AM CDT us Bar Gamble MD LAB BLOOD ORDERABLES Final R esult Performing Organization Address [facility] Co de Phone Number [facility] Department [place] [address] * (ABNORMAL) eGFR (05/25/2025 7:59 AM CDT) [facility] eGFR 25(L) >=60 mL/min/1. 73 m2 Comment: [...] MD LAB BLOOD ORDERABLES Fin al Result [facility] One [facility] Department [place] [address] * (ABNORMAL) Basic metabolic panel (05/25/2025 7:59 AM CDT) Sodium 140 135 - 145 mmol/L Potassium, pl 4.0 3.3 - 4.9 mmol/L [facility] Chloride 101 97 - 110 mmol/L [facility] CO2 26 22 - 32 mmol/L [facility] Anion gap 13 2 - 15 mmol/L [facility] BUN 87(H) 6 - 25 mg/dL [facility] Creatinine 2.82(H) 0.80 - 1.30 mg/dL [facility] Glucose 100 70 - 199 mg/dL [facility] Comment: Interpretive Data Fasting glucose >/= [...] 2022. Calcium 9.1 8.5 - 10.3 mg/dL [facility] Blood 05/25/2025 7:59 AM CDT 05/25/2025 8:14 AM CDT Addy Tapia MD LAB BLOOD ORDERABLES Fin al Result Performing Organization Address [facility] Phone Number [facility] [place] [address] * POCT glucose (05/25/2025 6:50 AM CDT) Glucose, POC 109 70 - 199 mg/dL Blood 05/25/2025 6:50 AM CDT 05/25/2025 6:50 AM CDT Addy Tapia MD LAB POCT ORDERABLES - DE VICE Final Result Performing Organization Address [facility] Phone Number [facility] [place] [address] * POCT glucose (05/25/2025 5:16 AM CDT) Glucose, POC 117 70 - 199 mg/dL Blood 05/25/2025 5:16 AM CDT 05/25/2025 5:16 AM CDT Addy Tapia MD LAB POCT ORDERABLES - DE VICE Final Result Performing Organization Address [facility] Phone Number [facility] [place] [address] * Potassium, whole blood (05/25/2025 5:14 AM CDT) Potassium, bld 4.1 3.3 - 4.9 mmol/L Blood 05/25/2025 5:14 AM CDT 05/25/2025 5:23 AM CDT Bar Gamble MD LAB BLOOD ORDERABLES Final R esult Performing Organization Address [facility] Co de Phone Number [facility] [place] [address] * Tacrolimus level trough (05/25/2025 5:06 AM CDT) Tacrolimus trough 14.6 ng/mL Comment: Interpretive Data Testing performed by liquid chromatography-tandem mass spectrometry. Therapeutic concentrations vary depending on type of transplanted organ and time elapsed since transplant. Typical trough concentrations range from 5-15 ng/mL. This test was developed and its performance characteristics determined by the [facility] consistent with CLIA requirements. This test has not been cleared or approved by the [place] Food and Drug administration. Current interpretive data last reviewed 2020. Blood 05/25/2025 5:06 AM CDT 05/25/2025 5:29 AM CDT Zev Cowart MD PhD LAB BLOOD ORDERABLES Fi nal Result Performing Organization Address [facility] Co de Phone Number [facility] Department [place] [employer] [place] [address] * POCT glucose (05/25/2025 3:46 AM CDT) Glucose, POC 114 70 - 199 mg/dL Blood 05/25/2025 3:46 AM CDT 05/25/2025 3:46 AM CDT us Addy Tapia MD LAB POCT ORDERABLES - DE VICE Final Result Performing Organization Address [facility] Co de Phone Number [facility] [employer] [place] [address] * POCT glucose (05/25/2025 1:55 AM CDT) Glucose, POC 133 70 - 199 mg/dL Blood 05/25/2025 1:55 AM CDT 05/25/2025 1:55 AM CDT Addy Tapia MD LAB POCT ORDERABLES - DE VICE Final Result Performing Organization Address [facility] Co ma Phone Number [facility] [place] [address] * POCT glucose (05/25/2025 1:04 AM CDT) Glucose, POC 135 70 - 199 mg/dL Blood 05/25/2025 1:04 AM CDT 05/25/2025 1:04 AM CDT Addy Tapia MD LAB POCT ORDERABLES - DE VICE Final Result Performing Organization Address [facility] [place] [address] * POCT glucose (05/25/2025 12:22 AM CDT) Glucose, POC 143 70 - 199 mg/dL Blood 05/25/2025 12:2 2 AM CDT 05/25/2025 12:22 AM CDT Addy Tapia MD LAB POCT ORDERABLES - DE VICE Final Result Performing Organization Address [facility] Phone Number [facility] [employer] [place] [address] * Oxyhemoglobin, central venous (05/25/2025 12:06 AM CDT) Oxyhemoglobin, CV 86.7 % Comment: Interpretive Data No reference range established. Current interpretive data was last revised 2020. Blood 05/25/2025 12:0 6 AM CDT 05/25/2025 12:29 AM CDT Addy Tapia MD LAB BLOOD ORDERABLES Fin al Result Performing Organization Address [facility] [place] [address] * Oxyhemoglobin, pulmonary artery (05/25/2025 12:06 AM CDT) Oxyhemoglobin, PA 73.9 % Comment: Interpretive Data No reference range established. Current interpretive data was last revised 2020. Blood 05/25/2025 12:0 6 AM CDT 05/25/2025 12:27 AM CDT Addy Tapia MD LAB BLOOD ORDERABLES Fin al Result Performing Organization Address [facility] Phone Number [facility] [place] [address] * (ABNORMAL) Hemoglobin total, pulmonary artery (05/25/2025 12:06 AM CDT) Hemoglobin total, PA 8.8(L) 13.0 - 17.5 g/dL Blood 05/25/2025 12:0 6 AM CDT 05/25/2025 12:27 AM CDT Addy Tapia MD LAB BLOOD ORDERABLES Fin al Result Performing Organization Address [facility] de Phone Number [facility] Department [place] [address] * Potassium, whole blood (05/25/2025 12:06 AM CDT) Potassium, bld 4.2 3.3 - 4.9 mmol/L Blood 05/25/2025 12:0 6 AM CDT 05/25/2025 12:27 AM CDT Addy Tapia MD LAB BLOOD ORDERABLES Fin al Result Performing Organization Address [facility] de Phone Number [facility] Department [place] [address] * (ABNORMAL) eGFR (05/25/2025 12:06 AM CDT) [...] ORDERABLES Fin al Result Performing Organization Address [facility] de Phone Number [facility] Department [place] [address] * Lactate, whole blood (05/25/2025 12:06 AM CDT) Lactate, bld 0.9 0.7 - 2.0 mmol/L Blood 05/25/2025 12:0 6 AM CDT 05/25/2025 12:27 AM CDT Zev Cowart MD PhD LAB BLOOD ORDERABLES Fi nal Result Performing Organization Address [facility] de Phone Number [facility] Department [place] [address] * aPTT (05/25/2025 12:06 AM CDT) [facility] aPTT 34 28 - 38 sec Comment: Interpretive Data Heparin therapeutic range: 66.0 - 100.0 seconds. Range based on correlation with therapeutic heparin activity range of 0.3 - 0.7 Units/mL. Current interpretive data was last revised on 2023. Blood 05/25/2025 12:0 6 AM CDT 05/25/2025 12:39 AM CDT Narrative [facility] - 05/25/2025 12:48 AM CDT STAT [...] drawn peripherally (not from CVC). Libia Suarez [employer] [employer] LAB BLOOD ORDERABLES Final Re sult Performing Organization Address [facility] Co de Phone Number [facility] Radha [facility] Department [place] [address] * (ABNORMAL) CBC without differential (05/25/2025 12:06 AM CDT) [facility] WBC 15.48(H) 3.80 - 9.90 K/cumm Hgb 8.8(L) 13.0 - 17.5 g/dL [facility] Hct 26.7(L) 38.9 - 50.3 % [facility] Plt 139(L) 150 - 400 K/cumm [facility] MPV 11.0 9.1 - 12.3 fL [facility] RBC 3.26(L) 4.30 - 5.80 M/cumm [facility] MCV 81.9 81.3 - 96.4 fL [facility] MCH 27.0(L) 27.1 - 33.3 pg [facility] MCHC 33.0 32.3 - 35.7 g/dL [facility] RDW CV 15.4(H) 11.1 - 14.9 % [facility] RDW SD 46.3 35.7 - 48.1 fL [facility] NRBC abs 0.00 0.00 - 0.01 K/cumm [facility] Blood 05/25/2025 12:0 6 AM CDT 05/25/2025 12:32 AM CDT us Zev Cowart MD PhD LAB BLOOD ORDERABLES Fi nal Result Performing Organization Address [facility]/ZIP Co de Phone Number [facility] [place] [address] * (ABNORMAL) Phosphorus (05/25/2025 12:06 AM CDT) Phosphorus, pl 6.5(H) 2.3 - 4.5 mg/dL Blood 05/25/2025 12:0 6 AM CDT 05/25/2025 1:01 AM CDT Addy Tapia MD LAB BLOOD ORDERABLES Fin al Result [facility] [place] [address] * (ABNORMAL) Magnesium (05/25/2025 12:06 AM CDT) Magnesium 2.7(H) 1.4 - 2.5 mg/dL Blood 05/25/2025 12:0 6 AM CDT 05/25/2025 1:01 AM CDT Addy Tapia MD LAB BLOOD ORDERABLES Fin al Result [facility] [employer] [place] [address] * Lipase (05/25/2025 12:06 AM CDT) Lipase 28 10 - 99 Units/L Blood 05/25/2025 12:0 6 AM CDT 05/25/2025 1:01 AM CDT Addy Tapia MD LAB BLOOD ORDERABLES Fin al Result Performing Organization Address [facility] [place] [address] * (ABNORMAL) Blood gas, arterial (05/25/2025 12:06 AM CDT) pH, Art 7.39 7.35 - 7.45 PCO2, Arterial 39 35 - 45 mmHg [facility] PO2, Arterial 113(H) 83 - 108 mmHg [facility] HCO3 Art (Calculated) 24 20 - 30 mmol/L [facility] BE, art -1 mmol/L [facility] Comment: Interpretive Data No Reference Range Established Current Interpretive Data was last revised on 2017 O2 Sat Art (Measured) 99(H) 90 - 95 % [facility] Blood 05/25/2025 12:0 6 AM CDT 05/25/2025 12:27 AM CDT Addy Tapia MD LAB BLOOD ORDERABLES Fin al Result Performing Organization Address [facility] [place] [address] * (ABNORMAL) Hepatic function panel (05/25/2025 12:06 AM CDT) Bilirubin, total 0.8 0.1 - 1.2 mg/dL Bilirubin, direct 0.5(H) 0.1 - 0.3 mg/dL [facility] Protein, pl 6.3(L) 6.5 - 8.5 g/dL [facility] Albumin 4.0 3.5 - 5.0 g/dL [facility] Alk phos 145(H) 40 - 130 Units/L [facility] ALT 29 7 - 55 Units/L [facility] AST 34 10 - 50 Units/L [facility] Blood 05/25/2025 12:0 6 AM CDT 05/25/2025 1:01 AM CDT us Bar Gamble MD LAB BLOOD ORDERABLES Final R esult [facility] Department [place] [address] * (ABNORMAL) Basic metabolic panel (05/25/2025 12:06 AM CDT) Pathologist [facility] Sodium 141 135 - 145 mmol/L Potassium, pl 4.2 3.3 - 4.9 mmol/L [facility] Chloride 99 97 - 110 mmol/L [facility] CO2 23 22 - 32 mmol/L [facility] Anion gap 19(H) 2 - 15 mmol/L [facility] BUN 83(H) 6 - 25 mg/dL [facility] Creatinine 2.75(H) 0.80 - 1.30 mg/dL [facility] Glucose 125 70 - 199 mg/dL [facility] Comment: Interpretive Data Fasting glucose >/= [...] 8.5 - 10.3 mg/dL [facility] Blood 05/25/2025 12:0 6 AM CDT 05/25/2025 1:01 AM CDT Addy Tapia MD LAB BLOOD ORDERABLES Fin al Result [facility] Department [place] [address] * (ABNORMAL) POC Blood Gas and Chemistries, Arterial - (05/24/2025 11:39 PM CDT) pH, Art POC 7.41 7.35 - 7.45 pCO2, Art POC 39 35 - 45 mmHg [facility] pO2, Art POC 101 83 - 108 mmHg [facility] Na, POC 138 135 - 145 mmol/L [facility] K POC 4.2 3.3 - 4.9 mmol/L [facility] Comment: Interpretive Data Not all point of care methods assess for hemolysis. Confirm with instrument and retest K+ if not consistent with clinical signs and symptoms. Current Interpretive Data was last revised on 2024. Cl, POC 105 97 - 110 mmol/L [facility] Ionized Ca, POC 4.76 4.50 - 5.10 mg/dL [facility] Glucose, POC 123 70 - 199 mg/dL [facility] Lactate POC 0.8 0.7 - 2.0 mmol/L [facility] SO2 (sameer) arterial 98(H) 90 - 95 % [facility] Base excess, POC 0.1 mmol/L [facility] HCO3, Art POC 25 20 - 30 mmol/L [facility] Hct, POC 28.0(L) 41.4 - 51.6 % [facility] Total Hb, POC 9.2(L) 13.8 - 17.2 g/dL [facility] Blood 05/24/2025 11:3 9 PM CDT 05/24/2025 11:39 PM CDT Addy Tapia MD LAB POCT ORDERABLES - DE VICE Final Result [facility] [place] [address] * POCT glucose (05/24/2025 11:25 PM CDT) Glucose, POC 123 70 - 199 mg/dL Blood 05/24/2025 11:2 5 PM CDT 05/24/2025 11:25 PM CDT us Addy Jamar Tapia MD LAB POCT ORDERABLES - DE VICE Final Result Performing Organization Address [facility] de Phone Number DULCE MARIA [facility] [place] [address] * CT Abdomen Pelvis WO Contrast (05/24/2025 [...] drains are noted which courses outside the [id number]. Gastric tube terminates at the antrum. Esophagus [...] drains are noted which courses outside the [id number]. Gastric tube terminates at the antrum. Esophagus [...] - DE VICE Final Result D[facility] MARIA [facility] [place] [address] * POCT glucose (05/24/2025 8:53 PM CDT) Glucose, POC 144 70 - 199 mg/dL Blood 05/24/2025 8:53 PM CDT 05/24/2025 8:53 PM CDT Addy aJmar Tapia MD LAB POCT ORDERABLES - DE VICE Final Result D[facility] MARIA [facility] Department [place] [address] * XR Chest 1 View (05/24/2025 7:55 PM CDT) Anatomical Region Laterality Modality Body, Chest N/A Computed Radiogr aphy 05/25/2025 7:46 AM CDT Impressions 05/25/2025 7:47 AM CDT Comparison is made to chest radiograph 06/19/2025. Postsurgical changes of median sternotomy, sternal plates are unchanged in position. [place]ne catheter tip terminating at the level of [...] sternotomy, sternal plates are unchanged in position. [place] catheter tip terminating at the level of [...] Performing Organization Address [facility] Phone Number [facility] Department [place] [employer] [place] [address] * POCT glucose (05/24/2025 6:32 PM CDT) Glucose, POC 168 70 - 199 mg/dL Blood 05/24/2025 6:32 PM CDT 05/24/2025 6:32 PM CDT Addy Tapia MD LAB POCT ORDERABLES - DE VICE Final Result Performing Organization Address [facility] Phone Number [facility] [employer] [place] [address] * POCT glucose (05/24/2025 5:42 PM CDT) Glucose, POC 163 70 - 199 mg/dL Blood 05/24/2025 5:42 PM CDT 05/24/2025 5:42 PM CDT Addy Tapia MD LAB POCT ORDERABLES - DE VICE Final Result Performing Organization Address City/[facility] Co de Phone Number [facility] Department [place] [address] * (ABNORMAL) Hemoglobin total, pulmonary artery (05/24/2025 3:53 PM CDT) Hemoglobin total, PA 9.1(L) 13.0 - 17.5 g/dL Blood 05/24/2025 3:53 PM CDT 05/24/2025 4:01 PM CDT us Bar Gamble MD LAB BLOOD ORDERABLES Final R esult Performing Organization Address [facility] Co de Phone Number [facility] [place] [address] * (ABNORMAL) eGFR (05/24/2025 3:53 PM CDT) [...] MD LAB BLOOD ORDERABLES Fin al Result [facility] Department [place] [address] * (ABNORMAL) Basic metabolic panel (05/24/2025 3:53 PM CDT) Pathologist [facility] Sodium 138 135 - 145 mmol/L Potassium, pl 4.5 3.3 - 4.9 mmol/L [facility] Chloride 99 97 - 110 mmol/L [facility] CO2 21(L) 22 - 32 mmol/L [facility] Anion gap 18(H) 2 - 15 mmol/L [facility] BUN 78(H) 6 - 25 mg/dL [facility] Creatinine 2.57(H) 0.80 - 1.30 mg/dL [facility] Glucose 199 70 - 199 mg/dL [facility] Comment: Interpretive Data Fasting glucose >/= [...] 2022. Calcium 9.2 8.5 - 10.3 mg/dL [facility] Blood 05/24/2025 3:53 PM CDT 05/24/2025 4:11 PM CDT Addy Tapia MD LAB BLOOD ORDERABLES Fin al Result [facility] Department [place] [address] * POCT glucose (05/24/2025 3:51 PM CDT) Glucose, POC 199 70 - 199 mg/dL Blood 05/24/2025 3:51 PM CDT 05/24/2025 3:51 PM CDT Addy Tapia MD LAB POCT ORDERABLES - DE VICE Final Result Performing Organization Address [facility] Phone Number [facility] [employer] [place] [address] * POCT glucose (05/24/2025 2:26 PM CDT) Glucose, POC 177 70 - 199 mg/dL Blood 05/24/2025 2:2 6 PM CDT 05/24/2025 2:26 PM CDT Addy Tapia MD LAB POCT ORDERABLES - DE VICE Final Result Performing Organization Address [facility] Phone Number [facility] [employer] [place] [address] * Oxyhemoglobin, pulmonary artery (05/24/2025 1:00 PM CDT) Oxyhemoglobin, PA 72.8 % Comment: Interpretive Data No reference range established. Current interpretive data was last revised 2020. Blood 05/24/2025 1:00 PM CDT 05/24/2025 1:20 PM CDT Addy Tapia MD LAB BLOOD ORDERABLES Fin al Result Performing Organization Address [facility] Co de Phone Number [facility] [employer] [place] [address] * (ABNORMAL) Hemoglobin total, pulmonary artery (05/24/2025 1:00 PM CDT) Hemoglobin total, PA 9.4(L) 13.0 - 17.5 g/dL Blood 05/24/2025 1:00 PM CDT 05/24/2025 1:20 PM CDT Zev Cowart MD PhD LAB BLOOD ORDERABLES Fi nal Result Performing Organization Address [facility] Co de Phone Number [facility] [place] [address] * Potassium, whole blood (05/24/2025 1:00 PM CDT) Potassium, bld 4.3 3.3 - 4.9 mmol/L Blood 05/24/2025 1:00 PM CDT 05/24/2025 1:20 PM CDT us Bar Gamble MD LAB BLOOD ORDERABLES Final R esult Performing Organization Address [facility] de Phone Number [facility] [place] [address] * (ABNORMAL) Blood gas, arterial (05/24/2025 1:00 PM CDT) pH, Art 7.37 7.35 - 7.45 PCO2, Arterial 35 35 - 45 mmHg [facility] PO2, Arterial 101 83 - 108 mmHg [facility] HCO3 Art (Calculated) 21 20 - 30 mmol/L [facility] BE, art -4 mmol/L [facility] Comment: Interpretive Data No Reference Range Established Current Interpretive Data was last revised on 2017 O2 Sat Art (Measured) 99(H) 90 - 95 % [facility] Blood 05/24/2025 1:00 PM CDT 05/24/2025 1:20 PM CDT Addy Tapia MD LAB BLOOD ORDERABLES Fin al Result Performing Organization Address [facility] Co de Phone Number [facility] [place] [address] * POCT glucose (05/24/2025 12:38 PM CDT) Glucose, POC 148 70 - 199 mg/dL Blood 05/24/2025 12:3 8 PM CDT 05/24/2025 12:38 PM CDT Addy Tapia MD LAB POCT ORDERABLES - DE VICE Final Result Performing Organization Address [facility] Co de Phone Number [facility] Department [place] [address] * POCT glucose (05/24/2025 11:13 AM CDT) Glucose, POC 107 70 - 199 mg/dL Blood 05/24/2025 11:1 3 AM CDT 05/24/2025 11:13 AM CDT Addy Tapia MD LAB POCT ORDERABLES - DE VICE Final Result Performing Organization Address [facility] Phone Number [facility] Department [place] [address] * XR Abdomen Erect and or Decubitus [...] - DE VICE Final Result DULCE MARIA [facility] [place] [address] * (ABNORMAL) Differential, auto (05/24/2025 10:19 AM CDT) Neutrophil abs 18.80(H) 1.50 - 6.50 K/cumm Imm gran abs 0.23(H) 0.00 - 0.10 K/cumm [facility] Lymphocyte abs 0.33(L) 0.80 - 3.30 K/cumm [facility] Monocyte abs 1.05(H) 0.20 - 0.80 K/cumm [facility] Eosinophil abs 0.00 0.00 - 0.50 K/cumm [facility] Basophil abs 0.02 0.00 - 0.10 K/cumm [facility] Neutrophil pct 92.1 % [facility] Comment: Interpretive Data Percent cell count reference ranges are not reported, since discordance with absolute values may lead to misinterpretation of CBC data. Current Interpretive Data was last revised on 2018. Imm gran pct 1.1 % [facility] Comment: Interpretive Data Percent cell count reference ranges are not reported, since discordance with absolute values may lead to misinterpretation of CBC data. Current Interpretive Data was last revised on 2018. Lymphocyte pct 1.6 % [facility] Comment: Interpretive Data Percent cell count reference ranges are not reported, since discordance with absolute values may lead to misinterpretation of CBC data. Current Interpretive Data was last revised on 2018. Monocyte pct 5.1 % [facility] Comment: Interpretive Data Percent cell count reference ranges are not reported, since discordance with absolute values may lead to misinterpretation of CBC data. Current Interpretive Data was last revised on 2018. Eosinophil pct 0.0 % [facility] Comment: Interpretive Data Percent cell count reference ranges are not reported, since discordance with absolute values may lead to misinterpretation of CBC data. Current Interpretive Data was last revised on 2018. Basophil pct 0.1 % [facility] Comment: Interpretive Data Percent cell count reference ranges are not reported, since discordance with absolute values may lead to misinterpretation of CBC data. Current Interpretive Data was last revised on 2018. Blood 05/24/2025 10:1 9 AM CDT 05/24/2025 10:57 AM CDT Addy Tapia MD LAB BLOOD ORDERABLES Fin al Result Performing Organization Address [facility] de Phone Number [facility] [place] [employer] [place] [address] * (ABNORMAL) CBC with auto differential (05/24/2025 10:19 AM CDT) [facility] WBC 20.43(H) 3.80 - 9.90 K/cumm Hgb 8.9(L) 13.0 - 17.5 g/dL [facility] Hct 27.4(L) 38.9 - 50.3 % [facility] Plt 151 150 - 400 K/cumm [facility] MPV 11.7 9.1 - 12.3 fL [facility] RBC 3.29(L) 4.30 - 5.80 M/cumm [facility] MCV 83.3 81.3 - 96.4 fL [facility] MCH 27.1 27.1 - 33.3 pg [facility] MCHC 32.5 32.3 - 35.7 g/dL [facility] RDW CV 15.3(H) 11.1 - 14.9 % [facility] RDW SD 47.5 35.7 - 48.1 fL [facility] NRBC abs 0.00 0.00 - 0.01 K/cumm [facility] Blood 05/24/2025 10:1 9 AM CDT 05/24/2025 10:57 AM CDT Addy Tapia MD LAB BLOOD ORDERABLES Fin al Result Performing Organization Address [facility] Co de Phone Number [facility] Department [place] [employer] [place] [address] * (ABNORMAL) Hepatitis C (HCV) RNA PCR, quantitative Blood (05/24/2025 10:19 AM CDT) [facility] HCV RNA result Detected( A) [facility] Comment: The quantifiable range of this assay is 15 IU/mL to 100,000,000 IU/mL (1.18 log IU/mL to 8.00 log IU/mL). Testing was performed by the [employer] 6800 HCV Test ([employer] Testing performed at [facility] Current Interpretive Data was last revised on 2021 HCV RNA IU/mL 11,800 IUnits/mL [facility] HCV RNA log IU/mL 4.07 log IUnits/mL [facility] Blood 05/24/2025 10:1 9 AM CDT 05/24/2025 10:37 AM CDT us Emeli Jarvis MD LAB MICROBIOLOGY - GENERA L ORDERABLES Final Result [facility] [place] [address] [facility] * Critical Care (05/24/2025 8:33 AM CDT) [...] plan with the ICU team and other medical/corporate learning consultant staff, making frequent assessments and decisions [...] * POCT glucose (05/24/2025 8:19 AM CDT) Glucose, POC 115 70 - 199 mg/dL Blood 05/24/2025 8:19 AM CDT 05/24/2025 8:19 AM CDT us Addy Tapia MD LAB POCT ORDERABLES - DE VICE Final Result Performing Organization Address City/State/[facility] Co de Phone Number [facility] Department [place] [address] * (ABNORMAL) eGFR (05/24/2025 7:36 AM CDT) [...] ORDERABLES Fin al Result Performing Organization Address City/[facility]/ZIP Co de Phone Number [facility] [place] [address] * POCT glucose (05/24/2025 7:36 AM CDT) Glucose, POC 130 70 - 199 mg/dL Blood 05/24/2025 7:36 AM CDT 05/24/2025 7:36 AM CDT Addy Tapia MD LAB POCT ORDERABLES - DE VICE Final Result Performing Organization Address [facility] de Phone Number [facility] Department [place] [address] * (ABNORMAL) Basic metabolic panel (05/24/2025 7:36 AM CDT) Sodium 138 135 - 145 mmol/L Potassium, pl 4.2 3.3 - 4.9 mmol/L [facility] Chloride 101 97 - 110 mmol/L [facility] CO2 24 22 - 32 mmol/L [facility] Anion gap 13 2 - 15 mmol/L [facility] BUN 75(H) 6 - 25 mg/dL [facility] Creatinine 2.50(H) 0.80 - 1.30 mg/dL [facility] Glucose 129 70 - 199 mg/dL [facility] Comment: Interpretive Data Fasting glucose >/= [...] 2022. Calcium 8.5 8.5 - 10.3 mg/dL [facility] Blood 05/24/2025 7:36 AM CDT 05/24/2025 7:56 AM CDT Result [facility] Addy Tapia MD LAB BLOOD ORDERABLES Fin al Result Performing Organization Address [facility] Co de Phone Number [facility] Department [place] [address] * POCT glucose (05/24/2025 6:06 AM CDT) Glucose, POC 153 70 - 199 mg/dL Blood 05/24/2025 6:06 AM CDT 05/24/2025 6:06 AM CDT Result [facility] Addy Tapia MD LAB POCT ORDERABLES - DE VICE Final Result Performing Organization Address [facility] de Phone Number [facility] [employer] [place] [address] * Tacrolimus level trough (05/24/2025 6:04 AM CDT) Tacrolimus trough 13.2 ng/mL Comment: Interpretive Data Testing performed by liquid chromatography-tandem mass spectrometry. Therapeutic concentrations vary depending on type of transplanted organ and time elapsed since transplant. Typical trough concentrations range from 5-15 ng/mL. This test was developed and its performance characteristics determined by the [facility] consistent with CLIA requirements. This test has not been cleared or approved by the [place] Food and Drug administration. Current interpretive data last reviewed 2020. Blood 05/24/2025 6:04 AM CDT 05/24/2025 6:30 AM CDT Zev Cowart MD PhD LAB BLOOD ORDERABLES Fi nal Result [facility] Department [place] [address] * (ABNORMAL) POC Blood Gas and Chemistries, Arterial - (05/24/2025 4:34 AM CDT) [facility] pH, Art POC 7.41 7.35 - 7.45 pCO2, Art POC 37 35 - 45 mmHg [facility] pO2, Art POC 80(L) 83 - 108 mmHg [facility] Na, POC 132(L) 135 - 145 mmol/L [facility] K POC 4.0 3.3 - 4.9 mmol/L [facility] Comment: Interpretive Data Not all point of care methods assess for hemolysis. Confirm with instrument and retest K+ if not consistent with clinical signs and symptoms. Current Interpretive Data was last revised on 2024. Cl, POC 102 97 - 110 mmol/L [facility] Ionized Ca, POC 4.46(L) 4.50 - 5.10 mg/dL [facility] Glucose, POC 142 70 - 199 mg/dL [facility] Lactate POC 0.9 0.7 - 2.0 mmol/L [facility] SO2 (sameer) arterial 96(H) 90 - 95 % [facility] Base excess, POC -0.8 mmol/L [facility] HCO3, Art POC 24 20 - 30 mmol/L [facility] Hct, POC 41.0(L) 41.4 - 51.6 % [facility] Total Hb, POC 13.5(L) 13.8 - 17.2 g/dL [facility] Blood 05/24/2025 4:34 AM CDT 05/24/2025 4:34 AM CDT Addy Tapia MD LAB POCT ORDERABLES - DE VICE Final Result DULCE MARIA [facility] [place] [address] * POCT glucose (05/24/2025 2:14 AM CDT) Glucose, POC 152 70 - 199 mg/dL Blood 05/24/2025 2:14 AM CDT 05/24/2025 2:14 AM CDT Addy Tapia MD LAB POCT ORDERABLES - DE VICE Final Result DULCE MARIA [facility] [place] [address] * XR Abdomen 1 View AP (05/24/2025 1:02 AM CDT) Anatomical Region Laterality Modality Body, Abdomen N/A Digital Radiogra phy 05/24/2025 3:32 AM CDT Impressions 05/24/2025 3:32 AM CDT 1. Single view abdomen 05/23/2025 at 7:06 PM is compared to prior study of 05/21/2025 at 8:25 AM.Again seen are midline drains and a partially imaged [place]-Jayne catheter. There is no feeding tube or gastric tube identified. Mild gaseous distention of colon is seen which could be indicative of an adynamic ileus. No evidence for small bowel obstruction. 2. Single view chest from 05/24/2025 12:55 AM is compared to prior study of 05/22/2025 at 8:56 PM. Again seen is right internal jugular catheter with the tip identified tip [place]ne catheter overlies main pulmonary artery. Pericardial and [...] are midline drains and a partially imaged [place]-Jayne catheter. There is no feeding tube or gastric tube identified. Mild gaseous distention of colon is seen which could be indicative of an adynamic ileus. No evidence for small bowel obstruction. 2. Single view chest from 05/24/2025 12:55 AM is compared to prior study of 05/22/2025 at 8:56 PM. Again seen is right internal jugular catheter with the tip identified tip [place] catheter overlies main pulmonary artery. Pericardial and [...] Electronically signed by: Kristian Hagan M.D. Addy Jamar Tapia MD IMG XR PROCEDURES Final Result * POCT glucose (05/24/2025 12:16 AM CDT) Glucose, POC 113 70 - 199 mg/dL Blood 05/24/2025 12:1 6 AM CDT 05/24/2025 12:16 AM CDT Addy Tapia MD LAB POCT ORDERABLES - DE VICE Final Result Performing Organization Address [facility] Co de Phone Number [facility] [employer] [place] [address] * Oxyhemoglobin, pulmonary artery (05/23/2025 11:11 PM CDT) Pathologist [facility] Oxyhemoglobin, [place] 59.7 % Comment: Interpretive Data No reference range established. Current interpretive data was last revised 2020. Blood 05/23/2025 11:1 1 PM CDT 05/23/2025 11:35 PM CDT Addy Tapia MD LAB BLOOD ORDERABLES Fin al Result Performing Organization Address [facility] Co de Phone Number [facility] [place] [employer] [place] [address] * (ABNORMAL) Hemoglobin total, pulmonary artery (05/23/2025 11:11 PM CDT) Hemoglobin total, PA 8.8(L) 13.0 - 17.5 g/dL Blood 05/23/2025 11:1 1 PM CDT 05/23/2025 11:35 PM CDT Bar Gamble MD LAB BLOOD ORDERABLES Final R esult Performing Organization Address [facility] Co de Phone Number [facility] [place] [employer] [place] [address] * Potassium, whole blood (05/23/2025 11:11 PM CDT) Potassium, bld 4.3 3.3 - 4.9 mmol/L Blood 05/23/2025 11:1 1 PM CDT 05/23/2025 11:35 PM CDT Addy Tapia MD LAB BLOOD ORDERABLES Fin al Result Performing Organization Address [facility] Co de Phone Number [facility] [place] [employer] [place] [address] * (ABNORMAL) eGFR (05/23/2025 11:11 PM CDT) [...] 1 PM CDT 05/24/2025 12:38 AM CDT Addy Tapia MD LAB BLOOD ORDERABLES Fin al Result Performing Organization Address City/[facility]/ZIP Co de Phone Number DULCE MARIA [facility] Department [place] [address] * (ABNORMAL) CBC without differential (05/23/2025 11:11 PM CDT) WBC 18.85(H) 3.80 - 9.90 K/cumm Hgb 8.4(L) 13.0 - 17.5 g/dL [facility] Hct 25.0(L) 38.9 - 50.3 % [facility] Plt 127(L) 150 - 400 K/cumm [facility] MPV 11.0 9.1 - 12.3 fL [facility] RBC 3.04(L) 4.30 - 5.80 M/cumm [facility] MCV 82.2 81.3 - 96.4 fL [facility] MCH 27.6 27.1 - 33.3 pg [facility] MCHC 33.6 32.3 - 35.7 g/dL [facility] RDW CV 15.3(H) 11.1 - 14.9 % [facility] RDW SD 46.1 35.7 - 48.1 fL [facility] NRBC abs 0.00 0.00 - 0.01 K/cumm [facility] Blood 05/23/2025 11:1 1 PM CDT 05/23/2025 11:38 PM CDT Zev Cowart MD PhD LAB BLOOD ORDERABLES Fi nal Result [facility] [place] [address] * Triglycerides (05/23/2025 11:11 PM CDT) Pathologist [facility] Triglycerides 50 <=149 mg/dL Comment: Interpretive Data [...] Performing Organization Address [facility] Co de Phone Number [facility] [employer] [place] [address] * (ABNORMAL) Phosphorus (05/23/2025 11:11 PM CDT) Phosphorus, pl 6.2(H) 2.3 - 4.5 mg/dL Blood 05/23/2025 11:1 1 PM CDT 05/24/2025 12:06 AM CDT Zev Cowart MD PhD LAB BLOOD ORDERABLES Fi nal Result Performing Organization Address [facility] de Phone Number [facility] [place] [employer] [place] [address] * (ABNORMAL) Magnesium (05/23/2025 11:11 PM CDT) Magnesium 2.6(H) 1.4 - 2.5 mg/dL Blood 05/23/2025 11:1 1 PM CDT 05/24/2025 12:06 AM CDT Zev Cowart MD PhD LAB BLOOD ORDERABLES Fi nal Result Performing Organization Address [facility] de Phone Number [facility] [place] [employer] [place] [address] * (ABNORMAL) Blood gas, arterial (05/23/2025 11:11 PM CDT) pH, Art 7.39 7.35 - 7.45 PCO2, Arterial 37 35 - 45 mmHg [facility] PO2, Arterial 61(L) 83 - 108 mmHg [facility] HCO3 Art (Calculated) 23 20 - 30 mmol/L [facility] BE, art -2 mmol/L [facility] Comment: Interpretive Data No Reference Range Established Current Interpretive Data was last revised on 2017 O2 Sat Art (Measured) 90 90 - 95 % [facility] Blood 05/23/2025 11:1 1 PM CDT 05/23/2025 11:35 PM CDT us Addy Tapia MD LAB BLOOD ORDERABLES Fin al Result Performing Organization Address [facility] Co de Phone Number [facility] [place] [address] * (ABNORMAL) Hepatic function panel (05/23/2025 11:11 PM CDT) Bilirubin, total 0.8 0.1 - 1.2 mg/dL Bilirubin, direct 0.5(H) 0.1 - 0.3 mg/dL [facility] Protein, pl 6.2(L) 6.5 - 8.5 g/dL [facility] Albumin 4.0 3.5 - 5.0 g/dL [facility] Alk phos 135(H) 40 - 130 Units/L [facility] ALT 23 7 - 55 Units/L [facility] AST 42 10 - 50 Units/L [facility] Blood 05/23/2025 11:1 1 PM CDT 05/24/2025 12:06 AM CDT us Bar Gamble MD LAB BLOOD ORDERABLES Final R esult Performing Organization Address [facility]/ZIP Co de Phone Number [facility] Department [place] [address] * (ABNORMAL) Basic metabolic panel (05/23/2025 11:11 PM CDT) Sodium 137 135 - 145 mmol/L Potassium, pl 4.3 3.3 - 4.9 mmol/L [facility] Chloride 99 97 - 110 mmol/L [facility] CO2 24 22 - 32 mmol/L [facility] Anion gap 14 2 - 15 mmol/L [facility] BUN 69(H) 6 - 25 mg/dL [facility] Creatinine 2.50(H) 0.80 - 1.30 mg/dL [facility] Glucose 153 70 - 199 mg/dL [facility] Comment: Interpretive Data Fasting glucose >/= [...] 2022. Calcium 9.2 8.5 - 10.3 mg/dL [facility] Blood 05/23/2025 11:1 1 PM CDT 05/24/2025 12:06 AM CDT Addy Tapia MD LAB BLOOD ORDERABLES Fin al Result [facility] [place] [address] * Antibody identification (05/23/2025 10:38 PM CDT) Antibody ID 1 Anti-CD38 Comment:Panreactive -CD38 on reagent RBCs reacting with anti-CD38 therapy. DTT treatment removes cell surface CD38 and allows detection of common clinically significant antibodies except those against Dilma antigens. TRANSFUSION 2015;55;[id number] Blood 05/23/2025 10:3 8 PM CDT 05/23/2025 10:38 PM CDT Libia Suarez NP LAB BLOOD BANK TEST ORDERABLE S Final Result DULCE MARIA Garcia [facility] Department [place] [address] * POCT glucose (05/23/2025 10:35 PM CDT) Glucose, POC 144 70 - 199 mg/dL Blood 05/23/2025 10:3 5 PM CDT 05/23/2025 10:35 PM CDT Addy Tapia MD LAB POCT ORDERABLES - DE VICE Final Result DULCE MARIA ARANDA Radha [facility] Department [place] [address] * XR Chest 1 View (05/23/2025 9:58 PM CDT) Anatomical Region Laterality Modality Body, Chest N/A Digital Radiogra phy 05/24/2025 3:32 AM CDT Impressions 05/24/2025 3:32 AM CDT 1. Single view abdomen 05/23/2025 at 7:06 PM is compared to prior study of 05/21/2025 at 8:25 AM.Again seen are midline drains and a partially imaged [place] catheter. There is no feeding tube or gastric tube identified. Mild gaseous distention of colon is seen which could be indicative of an adynamic ileus. No evidence for small bowel obstruction. 2. Single view chest from 05/24/2025 12:55 AM is compared to prior study of 05/22/2025 at 8:56 PM. Again seen is right internal jugular catheter with the tip identified tip [place] catheter overlies main pulmonary artery. Pericardial and [...] are midline drains and a partially imaged [place] catheter. There is no feeding tube or gastric tube identified. Mild gaseous distention of colon is seen which could be indicative of an adynamic ileus. No evidence for small bowel obstruction. 2. Single view chest from 05/24/2025 12:55 AM is compared to prior study of 05/22/2025 at 8:56 PM. Again seen is right internal jugular catheter with the tip identified tip [place] catheter overlies main pulmonary artery. Pericardial and [...] Performing Organization Address [facility]/ZIP Co de Phone Number [facility] Department [place] [address] * POCT glucose (05/23/2025 8:09 PM CDT) Glucose, POC 98 70 - 199 mg/dL Blood 05/23/2025 8:09 PM CDT 05/23/2025 8:09 PM CDT Addy Tapia MD LAB POCT ORDERABLES - DE VICE Final Result Performing Organization Address [facility] Co de Phone Number [facility] Department [place] [address] * (ABNORMAL) Type and screen (05/23/2025 8:08 PM CDT) Poppy, indirect Positive(A) ABO Rh O Positive [facility] Blood 05/23/2025 8:08 PM CDT 05/23/2025 8:38 PM CDT Narrative [facility] - 05/23/2025 10:38 PM CDT Has the patient had Daratumumab or Isatuximab in the past 6 months?->Unknown Libia Suarez NP LAB BLOOD BANK TEST ORDERABLE S Final Result CERNER [facility] [place] [address] * Lipase (05/23/2025 8:08 PM CDT) Lipase 11 10 - 99 Units/L Blood 05/23/2025 8:08 PM CDT 05/23/2025 8:23 PM CDT Addy Jamar Tapia MD LAB BLOOD ORDERABLES [facility] al Result DULCE MARIA [facility] Department [place] [address] * XR Abdomen Ap 1 Vw (05/23/2025 7:45 PM CDT) Anatomical Region Laterality Modality Body, Abdomen N/A Digital Radiogra phy 05/24/2025 3:32 AM CDT Impressions 05/24/2025 3:32 AM CDT 1. Single view abdomen 05/23/2025 at 7:06 PM is compared to prior study of 05/21/2025 at 8:25 AM.Again seen are midline drains and a partially imaged [place] catheter. There is no feeding tube or gastric tube identified. Mild gaseous distention of colon is seen which could be indicative of an adynamic ileus. No evidence for small bowel obstruction. 2. Single view chest from 05/24/2025 12:55 AM is compared to prior study of 05/22/2025 at 8:56 PM. Again seen is right internal jugular catheter with the tip identified tip [place] catheter overlies main pulmonary artery. Pericardial and [...] are midline drains and a partially imaged [place] catheter. There is no feeding tube or gastric tube identified. Mild gaseous distention of colon is seen which could be indicative of an adynamic ileus. No evidence for small bowel obstruction. 2. Single view chest from 05/24/2025 12:55 AM is compared to prior study of 05/22/2025 at 8:56 PM. Again seen is right internal jugular catheter with the tip identified tip [place] catheter overlies main pulmonary artery. Pericardial and [...] Performing Organization Address [facility] [place] [address] * POCT glucose (05/23/2025 6:07 PM CDT) Glucose, POC 117 70 - 199 mg/dL Blood 05/23/2025 6:07 PM CDT 05/23/2025 6:07 PM CDT Addy Tapia MD LAB POCT ORDERABLES - DE VICE Final Result Performing Organization Address [facility] Co ma Phone Number [facility] [place] [employer] [place] [address] * POCT glucose (05/23/2025 5:12 PM CDT) Glucose, POC 128 70 - 199 mg/dL Blood 05/23/2025 5:12 PM CDT 05/23/2025 5:12 PM CDT Addy Tapia MD LAB POCT ORDERABLES - DE VICE Final Result Performing Organization Address [facility] [place] [address] * Oxyhemoglobin, pulmonary artery (05/23/2025 4:08 PM CDT) Pathologist [facility] Oxyhemoglobin, PA 65.8 % Comment: Interpretive Data No reference range established. Current interpretive data was last revised 2020. Blood 05/23/2025 4:08 PM CDT 05/23/2025 4:24 PM CDT us Addy Tapia MD LAB BLOOD ORDERABLES Fin al Result Performing Organization Address City/[facility] Co de Phone Number [facility] [place] [address] * (ABNORMAL) Hemoglobin total, pulmonary artery (05/23/2025 4:08 PM CDT) [facility] Hemoglobin total, PA 8.8(L) 13.0 - 17.5 g/dL Blood 05/23/2025 4:08 PM CDT 05/23/2025 4:24 PM CDT us Zev Cowart MD PhD LAB BLOOD ORDERABLES Fi nal Result Performing Organization Address [facility] Co de Phone Number [facility] [employer] [place] [address] * Potassium, whole blood (05/23/2025 4:08 PM CDT) [facility] Potassium, bld 4.5 3.3 - 4.9 mmol/L Blood 05/23/2025 4:08 PM CDT 05/23/2025 4:23 PM CDT us Bar Gamble MD LAB BLOOD ORDERABLES Final R esult Performing Organization Address [facility] Co de Phone Number [facility] [employer] [place] [address] * (ABNORMAL) eGFR (05/23/2025 4:08 PM CDT) Pathologist [facility] eGFR 33(L) >=60 mL/min/1. 73 m2 Comment: [...] MD LAB BLOOD ORDERABLES Fin al Result [facility] [place] [address] * (ABNORMAL) Blood gas, arterial (05/23/2025 4:08 PM CDT) pH, Art 7.43 7.35 - 7.45 PCO2, Arterial 34(L) 35 - 45 mmHg [facility] PO2, Arterial 83 83 - 108 mmHg [facility] HCO3 Art (Calculated) 23 20 - 30 mmol/L [facility] BE, art -2 mmol/L [facility] Comment: Interpretive Data No Reference Range Established Current Interpretive Data was last revised on 2017 O2 Sat Art (Measured) 97(H) 90 - 95 % [facility] Blood 05/23/2025 4:08 PM CDT 05/23/2025 4:23 PM CDT Addy Tapia MD LAB BLOOD ORDERABLES Fin al Result Performing Organization Address [facility]/ZIP Co de Phone Number [facility] Department [place] [employer] [place] [address] * (ABNORMAL) Basic metabolic panel (05/23/2025 4:08 PM CDT) Sodium 136 135 - 145 mmol/L Potassium, pl 4.8 3.3 - 4.9 mmol/L [facility] Comment:Hemolyzed; Potassium value may be falsely elevated by as much as 0.3-0.5 mmol/L. Suggest redraw and reanalysis. Chloride 99 97 - 110 mmol/L [facility] CO2 23 22 - 32 mmol/L [facility] Anion gap 14 2 - 15 mmol/L [facility] BUN 67(H) 6 - 25 mg/dL [facility] Creatinine 2.23(H) 0.80 - 1.30 mg/dL [facility] Glucose 122 70 - 199 mg/dL [facility] Comment: Interpretive Data Fasting glucose >/= [...] 2022. Calcium 9.1 8.5 - 10.3 mg/dL [facility] Blood 05/23/2025 4:08 PM CDT 05/23/2025 4:43 PM CDT Addy Tapia MD LAB BLOOD ORDERABLES Fin al Result Performing Organization Address [facility]/ZIP Co de Phone Number DULCE MARIA [facility] Department [place] [address] * POCT glucose (05/23/2025 4:04 PM CDT) Glucose, POC 127 70 - 199 mg/dL Blood 05/23/2025 4:04 PM CDT 05/23/2025 4:04 PM CDT Addy Tapia MD LAB POCT ORDERABLES - DE VICE Final Result DULCE MARIA [facility] [place] [address] * TRANSTHORACIC ECHO (TTE) COMPLETE W DOPPLER/CF W CONTRAST (05/23/2025 3:20 PM CDT) Pathologist [facility] EF Mod BP 81 % CONS SCIMAGE Anatomical Region Laterality Modality Ultrasound 05/23/2025 1:34 PM CDT Narrative 05/23/2025 3:27 PM CDT [facility] [place] [address] Transthoracic Echocardiographic Report Patient Name: GOSIA ZUNIGA W : 1965 (60y ) Gender: M Study Date: 05/23/2025 01:34:35 PM Ht(Inch): 72 Wt(Lb): 166.89 BSA: 1.96 Fishing Floats Assembler: Teagan Henderson [facility] Location: [id number] Order Provider: ADDY TAPIA Heart Rate: 105 [...] Note Dmitry Araya MD PhD - 05/23/2025 [facility] [place] [address] Transthoracic Echocardiographic Report Patient Name: GOSIA ZUNIGA W : 1965 (60y ) Gender: M Study Date: 05/23/2025 01:34:35 PM Ht(Inch): 72 Wt(Lb): 166.89 BSA: 1.96 [employer]ishing Floats Assembler: Teagan Henderson [facility] Location: [id number] Order Provider:ADDY TAPIA Heart Rate: 105 BMI: [...] LA Length 2C 7.62 cm MV Decel Ldsc178.15 msec [ 104.00 - 258.00 ] LA [...] 5.00 ] PV Peak PG4.00 mmHg RA Ucjxnc18.65 ml RA Volume Index18.19 ml/m2 AoR Diam [...] Performing Organization Address [facility]/ZIP Co de Phone Number [facility] Department [place] [address] * POCT glucose (05/23/2025 2:17 PM CDT) Glucose, POC 89 70 - 199 mg/dL Blood 05/23/2025 2:17 PM CDT 05/23/2025 2:17 PM CDT Addy Tapia MD LAB POCT ORDERABLES - DE VICE Final Result Performing Organization Address City/[facility]/ZIP Co de Phone Number [facility] [employer] [place] [address] * POCT glucose (05/23/2025 1:04 PM CDT) Glucose, POC 149 70 - 199 mg/dL Blood 05/23/2025 1:04 PM CDT 05/23/2025 1:04 PM CDT Addy Tapia MD LAB POCT ORDERABLES - DE VICE Final Result Performing Organization Address City/[facility]/[place] [address] * Oxyhemoglobin, pulmonary artery (05/23/2025 12:11 PM CDT) Oxyhemoglobin, PA 66.1 % Comment: Interpretive Data No reference range established. Current interpretive data was last revised 2020. Blood 05/23/2025 12:1 1 PM CDT 05/23/2025 12:18 PM CDT Result [facility] Addy Tapia MD LAB BLOOD ORDERABLES Fin al Result Performing Organization Address [facility]/[place] [address] * (ABNORMAL) Hemoglobin total, pulmonary artery (05/23/2025 12:11 PM CDT) Hemoglobin total, PA 8.6(L) 13.0 - 17.5 g/dL Blood 05/23/2025 12:1 1 PM CDT 05/23/2025 12:18 PM CDT Zev Cowart MD PhD LAB BLOOD ORDERABLES Fi nal Result Performing Organization Address City/[facility]/ZIP Co de Phone Number [facility] [place] [address] * (ABNORMAL) Hemoglobin total, pulmonary artery (05/23/2025 12:11 PM CDT) Pathologist [facility] Hemoglobin total, PA 8.8(L) 13.0 - 17.5 g/dL Blood 05/23/2025 12:1 1 PM CDT 05/23/2025 12:18 PM CDT Bar Gamble MD LAB BLOOD ORDERABLES Final R esult Performing Organization Address City/[facility] Co de Phone Number [facility] Department [place] [address] * Potassium, whole blood (05/23/2025 12:11 PM CDT) Pathologist [facility] Potassium, bld 4.5 3.3 - 4.9 mmol/L Blood 05/23/2025 12:1 1 PM CDT 05/23/2025 12:18 PM CDT Bar Gamble MD LAB BLOOD ORDERABLES Final R esult Performing Organization Address City/[facility] Co de Phone Number [facility] Department [place] [address] * (ABNORMAL) Blood gas, arterial (05/23/2025 12:11 PM CDT) Pathologist [facility] pH, Art 7.42 7.35 - 7.45 PCO2, Arterial 35 35 - 45 mmHg [facility] PO2, Arterial 78(L) 83 - 108 mmHg [facility] HCO3 Art (Calculated) 23 20 - 30 mmol/L [facility] BE, art -1 mmol/L [facility] Comment: Interpretive Data No Reference Range Established Current Interpretive Data was last revised on 2017 O2 Sat Art (Measured) 96(H) 90 - 95 % [facility] Blood 05/23/2025 12:1 1 PM CDT 05/23/2025 12:18 PM CDT Addy Tapia MD LAB BLOOD ORDERABLES Fin al Result Performing Organization Address [facility] Co de Phone Number [facility] [place] [address] * POCT glucose (05/23/2025 12:05 PM CDT) Glucose, POC 191 70 - 199 mg/dL Blood 05/23/2025 12:0 5 PM CDT 05/23/2025 12:05 PM CDT Addy Tapia MD LAB POCT ORDERABLES - DE VICE Final Result Performing Organization Address [facility] Phone Number [facility] [place] [address] * (ABNORMAL) POCT glucose (05/23/2025 11:07 AM CDT) Glucose, POC 234(H) 70 - 199 mg/dL Blood 05/23/2025 11:0 7 AM CDT 05/23/2025 11:07 AM CDT Addy Tapia MD LAB POCT ORDERABLES - DE VICE Final Result Performing Organization Address [facility] Co ma Phone Number [facility] Department [place] [address] * Critical Care (05/23/2025 10:21 AM CDT) [...] plan with the ICU team and other medical/corporate learning consultant staff, making frequent assessments and decisions [...] POCT ORDERABLES - DE VICE Final Result [facility] [place] [address] * POCT glucose (05/23/2025 8:56 AM CDT) Glucose, POC 186 70 - 199 mg/dL Blood 05/23/2025 8:56 AM CDT 05/23/2025 8:56 AM CDT Addy Tapia MD LAB POCT ORDERABLES - DE VICE Final Result Performing Organization Address [facility] de Phone Number [facility] [place] [address] * Oxyhemoglobin, pulmonary artery (05/23/2025 7:58 AM CDT) Oxyhemoglobin, PA 70.8 % Comment: Interpretive Data No reference range established. Current interpretive data was last revised 2020. Blood 05/23/2025 7:58 AM CDT 05/23/2025 8:17 AM CDT Addy Tapia MD LAB BLOOD ORDERABLES Fin al Result Performing Organization Address [facility] de Phone Number [facility] [place] [address] * (ABNORMAL) Hemoglobin total, pulmonary artery (05/23/2025 7:58 AM CDT) Hemoglobin total, PA 8.1(L) 13.0 - 17.5 g/dL Blood 05/23/2025 7:58 AM CDT 05/23/2025 8:17 AM CDT Zev Cowart MD PhD LAB BLOOD ORDERABLES Fi nal Result Performing Organization Address [facility] Co de Phone Number [facility] [place] [address] * Potassium, whole blood (05/23/2025 7:58 AM CDT) Potassium, bld 4.4 3.3 - 4.9 mmol/L Blood 05/23/2025 7:58 AM CDT 05/23/2025 8:17 AM CDT Bar Gamble MD LAB BLOOD ORDERABLES Final R esult Performing Organization Address [facility]/ZIP Co de Phone Number [facility] [place] [address] * (ABNORMAL) Blood gas, arterial (05/23/2025 7:58 AM CDT) pH, Art 7.40 7.35 - 7.45 PCO2, Arterial 38 35 - 45 mmHg [facility] PO2, Arterial 110(H) 83 - 108 mmHg [facility] HCO3 Art (Calculated) 24 20 - 30 mmol/L [facility] BE, art -1 mmol/L [facility] Comment: Interpretive Data No Reference Range Established Current Interpretive Data was last revised on 2017 O2 Sat Art (Measured) 99(H) 90 - 95 % [facility] Blood 05/23/2025 7:58 AM CDT 05/23/2025 8:17 AM CDT Addy Tapia MD LAB BLOOD ORDERABLES Fin al Result Performing Organization Address [facility]/ZIP Co de Phone Number [facility] [employer] [place] [address] * POCT glucose (05/23/2025 7:57 AM CDT) Glucose, POC 142 70 - 199 mg/dL Blood 05/23/2025 7:57 AM CDT 05/23/2025 7:57 AM CDT Addy Tapia MD LAB POCT ORDERABLES - DE VICE Final Result Performing Organization Address [facility] Co de Phone Number [facility] [employer] [place] [address] * POCT glucose (05/23/2025 7:01 AM CDT) Glucose, POC 136 70 - 199 mg/dL Blood 05/23/2025 7:01 AM CDT 05/23/2025 7:01 AM CDT Addy Tapia MD LAB POCT ORDERABLES - DE VICE Final Result Performing Organization Address [facility] Phone Number [facility] [place] [address] * Tacrolimus level trough (05/23/2025 6:42 AM CDT) [facility] Tacrolimus trough 5.8 ng/mL Comment: Interpretive Data Testing performed by liquid chromatography-tandem mass spectrometry. Therapeutic concentrations vary depending on type of transplanted organ and time elapsed since transplant. Typical trough concentrations range from 5-15 ng/mL. This test was developed and its performance characteristics determined by the [facility] consistent with CLIA requirements. This test has not been cleared or approved by the [place] Food and Drug administration. Current interpretive data last reviewed 2020. Blood 05/23/2025 6:42 AM CDT 05/23/2025 6:53 AM CDT Zev Cowart MD PhD LAB BLOOD ORDERABLES Fi nal Result Performing Organization Address [facility] Co de Phone Number [facility] [employer] [place] [address] * POCT glucose (05/23/2025 5:56 AM CDT) Glucose, POC 114 70 - 199 mg/dL Blood 05/23/2025 5:56 AM CDT 05/23/2025 5:56 AM CDT Addy Tapia MD LAB POCT ORDERABLES - DE VICE Final Result Performing Organization Address [facility] Co ma Phone Number [facility] [place] [address] * POCT glucose (05/23/2025 4:13 AM CDT) Glucose, POC 130 70 - 199 mg/dL Blood 05/23/2025 4:13 AM CDT 05/23/2025 4:13 AM CDT Addy Tapia MD LAB POCT ORDERABLES - DE VICE Final Result Performing Organization Address [facility] Co ma Phone Number [facility] [employer] [place] [address] * POCT glucose (05/23/2025 2:51 AM CDT) Glucose, POC 136 70 - 199 mg/dL Blood 05/23/2025 2:51 AM CDT 05/23/2025 2:51 AM CDT Addy Tapia MD LAB POCT ORDERABLES - DE VICE Final Result Performing Organization Address [facility] Co ma Phone Number [facility] [employer] [place] [address] * POCT glucose (05/23/2025 1:57 AM CDT) Glucose, POC 123 70 - 199 mg/dL Blood 05/23/2025 1:57 AM CDT 05/23/2025 1:57 AM CDT Addy Tapia MD LAB POCT ORDERABLES - DE VICE Final Result Performing Organization Address [facility] Co de Phone Number [facility] [employer] [place] [address] * POCT glucose (05/23/2025 1:14 AM CDT) Glucose, POC 97 70 - 199 mg/dL Blood 05/23/2025 1:14 AM CDT 05/23/2025 1:14 AM CDT Addy Tapia MD LAB POCT ORDERABLES - DE VICE Final Result Performing Organization Address [facility] Phone Number [facility] [employer] [place] [address] * POCT glucose (05/23/2025 12:15 AM CDT) Glucose, POC 137 70 - 199 mg/dL Blood 05/23/2025 12:1 5 AM CDT 05/23/2025 12:15 AM CDT Result [facility] Addy Tapia MD LAB POCT ORDERABLES - DE VICE Final Result Performing Organization Address [facility] [place] [address] * Oxyhemoglobin, pulmonary artery (05/23/2025 12:11 AM CDT) Oxyhemoglobin, PA 67.9 % Comment: Interpretive Data No reference range established. Current interpretive data was last revised 2020. Blood 05/23/2025 12:1 1 AM CDT 05/23/2025 1:07 AM CDT Result [facility] Addy Tapia MD LAB BLOOD ORDERABLES Fin al Result Performing Organization Address [facility] Phone Number [facility] [employer] [place] [address] * (ABNORMAL) Hemoglobin total, pulmonary artery (05/23/2025 12:11 AM CDT) Hemoglobin total, PA 7.5(L) 13.0 - 17.5 g/dL Blood 05/23/2025 12:1 1 AM CDT 05/23/2025 1:07 AM CDT Addy Tapia MD LAB BLOOD ORDERABLES Fin al Result [facility] [place] [address] * Potassium, whole blood (05/23/2025 12:11 AM CDT) Potassium, bld 4.2 3.3 - 4.9 mmol/L Blood 05/23/2025 12:1 1 AM CDT 05/23/2025 1:07 AM CDT Zev Cowart MD PhD LAB BLOOD ORDERABLES Fi nal Result Performing Organization Address [facility] Co de Phone Number [facility] [place] [address] * (ABNORMAL) eGFR (05/23/2025 12:11 AM CDT) [...] Performing Organization Address [facility]/ZIP Co de Phone Number [facility] [employer] [place] [address] * (ABNORMAL) CBC without differential (05/23/2025 12:11 AM CDT) WBC 18.29(H) 3.80 - 9.90 K/cumm Hgb 7.9(L) 13.0 - 17.5 g/dL [facility] Hct 23.8(L) 38.9 - 50.3 % [facility] Plt 129(L) 150 - 400 K/cumm [facility] MPV 11.9 9.1 - 12.3 fL [facility] RBC 2.89(L) 4.30 - 5.80 M/cumm [facility] MCV 82.4 81.3 - 96.4 fL [facility] MCH 27.3 27.1 - 33.3 pg [facility] MCHC 33.2 32.3 - 35.7 g/dL [facility] RDW CV 15.2(H) 11.1 - 14.9 % [facility] RDW SD 46.2 35.7 - 48.1 fL [facility] NRBC abs 0.00 0.00 - 0.01 K/cumm [facility] Blood 05/23/2025 12:1 1 AM CDT 05/23/2025 1:28 AM CDT us Zev Cowart MD PhD LAB BLOOD ORDERABLES Fi nal Result [facility] [employer] [place] [address] * (ABNORMAL) Phosphorus (05/23/2025 12:11 AM CDT) Phosphorus, pl 5.6(H) 2.3 - 4.5 mg/dL Blood 05/23/2025 12:1 1 AM CDT 05/23/2025 1:27 AM CDT Zev Cowart MD PhD LAB BLOOD ORDERABLES Fi nal Result Performing Organization Address [facility] Co de Phone Number [facility] [employer] [place] [address] * (ABNORMAL) Magnesium (05/23/2025 12:11 AM CDT) Magnesium 2.6(H) 1.4 - 2.5 mg/dL Blood 05/23/2025 12:1 1 AM CDT 05/23/2025 1:27 AM CDT Zev Cowart MD PhD LAB BLOOD ORDERABLES Fi nal Result Performing Organization Address [facility] [place] [address] * (ABNORMAL) Blood gas, arterial (05/23/2025 12:11 AM CDT) pH, Art 7.41 7.35 - 7.45 PCO2, Arterial 38 35 - 45 mmHg [facility] PO2, Arterial 85 83 - 108 mmHg [facility] HCO3 Art (Calculated) 25 20 - 30 mmol/L [facility] BE, art 0 mmol/L [facility] Comment: Interpretive Data No Reference Range Established Current Interpretive Data was last revised on 2017 O2 Sat Art (Measured) 97(H) 90 - 95 % [facility] Blood 05/23/2025 12:1 1 AM CDT 05/23/2025 1:07 AM CDT Addy Tapia MD LAB BLOOD ORDERABLES Fin al Result Performing Organization Address [facility] Co de Phone Number [facility] [employer] [place] [address] * (ABNORMAL) Hepatic function panel (05/23/2025 12:11 AM CDT) Pathologist [facility] Bilirubin, total 0.8 0.1 - 1.2 mg/dL Bilirubin, direct 0.5(H) 0.1 - 0.3 mg/dL [facility] Protein, pl 5.9(L) 6.5 - 8.5 g/dL [facility] Albumin 3.8 3.5 - 5.0 g/dL [facility] Alk phos 137(H) 40 - 130 Units/L [facility] ALT 22 7 - 55 Units/L [facility] AST 56(H) 10 - 50 Units/L [facility] Blood 05/23/2025 12:1 1 AM CDT 05/23/2025 1:27 AM CDT us Bar Gamble MD LAB BLOOD ORDERABLES Final R esult [facility] [place] [address] * (ABNORMAL) Basic metabolic panel (05/23/2025 12:11 AM CDT) [facility] Sodium 135 135 - 145 mmol/L Potassium, pl 4.3 3.3 - 4.9 mmol/L [facility] Chloride 99 97 - 110 mmol/L [facility] CO2 34(H) 22 - 32 mmol/L [facility] Anion gap 2 2 - 15 mmol/L [facility] BUN 54(H) 6 - 25 mg/dL [facility] Creatinine 2.12(H) 0.80 - 1.30 mg/dL [facility] Glucose 130 70 - 199 mg/dL [facility] Comment: Interpretive Data Fasting glucose >/= [...] 2022. Calcium 9.2 8.5 - 10.3 mg/dL [facility] Blood 05/23/2025 12:1 1 AM CDT 05/23/2025 1:27 AM CDT Bar Gamble MD LAB BLOOD ORDERABLES Final R esult Performing Organization Address City/[facility]/ZIP Co de Phone Number [facility] [place] [employer] [place] [address] * POCT glucose (05/22/2025 11:10 PM CDT) Glucose, POC 174 70 - 199 mg/dL Blood 05/22/2025 11:1 0 PM CDT 05/22/2025 11:10 PM CDT Addy Tapia MD LAB POCT ORDERABLES - DE VICE Final Result Performing Organization Address [facility] Co de Phone Number [facility] [employer] [place] [address] * (ABNORMAL) POCT glucose (05/22/2025 10:08 PM CDT) Glucose, POC 220(H) 70 - 199 mg/dL Blood 05/22/2025 10:0 8 PM CDT 05/22/2025 10:08 PM CDT Addy Tapia MD LAB POCT ORDERABLES - DE VICE Final Result Performing Organization Address City/[facility] Co de Phone Number [facility] [employer] [place] [address] * (ABNORMAL) POCT glucose (05/22/2025 9:12 PM CDT) Glucose, POC 208(H) 70 - 199 mg/dL Blood 05/22/2025 9:12 PM CDT 05/22/2025 9:12 PM CDT Addy Tapia MD LAB POCT ORDERABLES - DE VICE Final Result [facility] [place] [address] * XR Chest 1 View (05/22/2025 8:59 PM CDT) Anatomical Region Laterality Modality Body, Chest N/A Computed Radiogr aphy 05/23/2025 10:0 9 AM CDT Impressions 05/23/2025 10:24 AM CDT The current study is compared with the prior radiograph dated 05/22/2025 at 5:04 AM A right internal jugular vein approach [place] catheter is in place, tip overlies the [...] AM A right internal jugular vein approach [place] catheter is in place, tip overlies the [...] it. Electronically signed by: Jessica Jackson M.D. Result [facility] Addy Tapia MD IMG XR PROCEDURES Final Result * POCT glucose (05/22/2025 8:05 PM CDT) Glucose, POC 176 70 - 199 mg/dL Blood 05/22/2025 8:05 PM CDT 05/22/2025 8:05 PM CDT Addy Tapia MD LAB POCT ORDERABLES - DE VICE Final Result Performing Organization Address [facility] Co de Phone Number [facility] [place] [employer] [place] [address] * (ABNORMAL) POCT glucose (05/22/2025 7:14 PM CDT) Glucose, POC 231(H) 70 - 199 mg/dL Blood 05/22/2025 7:14 PM CDT 05/22/2025 7:14 PM CDT Result [facility] Addy Tapia MD LAB POCT ORDERABLES - DE VICE Final Result Performing Organization Address [facility]/ZIP Co de Phone Number [facility] [place] [employer] [place] [address] * (ABNORMAL) POCT glucose (05/22/2025 6:25 PM CDT) Glucose, POC 222(H) 70 - 199 mg/dL Blood 05/22/2025 6:25 PM CDT 05/22/2025 6:25 PM CDT us Addy Tapia MD LAB POCT ORDERABLES - DE VICE Final Result Performing Organization Address [facility] Co de Phone Number [facility] [employer] [place] [address] * POCT glucose (05/22/2025 5:17 PM CDT) Glucose, POC 121 70 - 199 mg/dL Blood 05/22/2025 5:17 PM CDT 05/22/2025 5:17 PM CDT Addy Tapia MD LAB POCT ORDERABLES - DE VICE Final Result Performing Organization Address [facility] [place] [address] * POCT glucose (05/22/2025 4:24 PM CDT) Glucose, POC 185 70 - 199 mg/dL Blood 05/22/2025 4:24 PM CDT 05/22/2025 4:24 PM CDT Addy Tapia MD LAB POCT ORDERABLES - DE VICE Final Result Performing Organization Address [facility] Co de Phone Number [facility] [employer] [place] [address] * (ABNORMAL) Hemoglobin total, pulmonary artery (05/22/2025 4:14 PM CDT) Hemoglobin total, PA 8.2(L) 13.0 - 17.5 g/dL Blood 05/22/2025 4:14 PM CDT 05/22/2025 4:35 PM CDT Bar Gamble MD LAB BLOOD ORDERABLES Final R esult Performing Organization Address [facility] Co de Phone Number [facility] [place] [address] * (ABNORMAL) eGFR (05/22/2025 4:14 PM CDT) [...] LAB BLOOD ORDERABLES Final R esult [facility] [place] [address] * (ABNORMAL) Hepatitis C genotype Blood (05/22/2025 4:14 PM CDT) Pathologist [facility] HCV genotype 1a(A) Undetected Comment: ADDITIONAL INFORMATION This test was performed using the [employer] RealTime HCV Genotype II assay ([employer] [place], [place]). Test Performed by: [address] [address] Pot Room Supervisor: Milagros Henriquez Ph.D.; CLIA# [id number] Blood 05/22/2025 4:14 PM CDT 05/22/2025 4:47 PM CDT us Lindsay Arciniega MD LAB MICROBIOLOGY - GENERAL ORDER LINH Final Result [facility] [place] [address] * (ABNORMAL) Basic metabolic panel (05/22/2025 4:14 PM CDT) Sodium 133(L) 135 - 145 mmol/L Potassium, pl 4.2 3.3 - 4.9 mmol/L [facility] Chloride 97 97 - 110 mmol/L [facility] CO2 26 22 - 32 mmol/L [facility] Anion gap 10 2 - 15 mmol/L [facility] BUN 48(H) 6 - 25 mg/dL [facility] Creatinine 1.85(H) 0.80 - 1.30 mg/dL [facility] Glucose 176 70 - 199 mg/dL [facility] Comment: Interpretive Data Fasting glucose >/= [...] 2022. Calcium 9.2 8.5 - 10.3 mg/dL [facility] Blood 05/22/2025 4:14 PM CDT 05/22/2025 4:43 PM CDT us Bar Gamble MD LAB BLOOD ORDERABLES Final R esult Performing Organization Address City/[facility]/ZIP Co de Phone Number [facility] [employer] [place] [address] * (ABNORMAL) POCT glucose (05/22/2025 2:58 PM CDT) Glucose, POC 246(H) 70 - 199 mg/dL Blood 05/22/2025 2:58 PM CDT 05/22/2025 2:58 PM CDT Addy Tapia MD LAB POCT ORDERABLES - DE VICE Final Result Performing Organization Address [facility] [place] [address] * (ABNORMAL) POCT glucose (05/22/2025 2:52 PM CDT) Glucose, POC 255(H) 70 - 199 mg/dL Blood 05/22/2025 2:52 PM CDT 05/22/2025 2:52 PM CDT Addy Tapia MD LAB POCT ORDERABLES - DE VICE Final Result Performing Organization Address [facility] [place] [address] * Oxyhemoglobin, central venous (05/22/2025 2:48 PM CDT) [facility] Oxyhemoglobin, CV 82.3 % Comment: Interpretive Data No reference range established. Current interpretive data was last revised 2020. Blood 05/22/2025 2:48 PM CDT 05/22/2025 2:52 PM CDT us Addy Tapia MD LAB BLOOD ORDERABLES Fin al Result Performing Organization Address City/[facility] Co de Phone Number [facility] [employer] [place] [address] * (ABNORMAL) Blood gas, arterial (05/22/2025 2:48 PM CDT) pH, Art 7.40 7.35 - 7.45 PCO2, Arterial 37 35 - 45 mmHg [facility] PO2, Arterial 107 83 - 108 mmHg [facility] HCO3 Art (Calculated) 24 20 - 30 mmol/L [facility] BE, art -1 mmol/L [facility] Comment: Interpretive Data No Reference Range Established Current Interpretive Data was last revised on 2017 O2 Sat Art (Measured) 98(H) 90 - 95 % [facility] Blood 05/22/2025 2:48 PM CDT 05/22/2025 2:52 PM CDT Addy Tapia MD LAB BLOOD ORDERABLES Fin al Result Performing Organization Address [facility] Co de Phone Number [facility] [place] [address] * Oxyhemoglobin, central venous (05/22/2025 1:33 PM CDT) Oxyhemoglobin, CV 94.3 % Comment: Interpretive Data No reference range established. Current interpretive data was last revised 2020. Blood 05/22/2025 1:33 PM CDT 05/22/2025 1:42 PM CDT Addy Tapia MD LAB BLOOD ORDERABLES Fin al Result Performing Organization Address City/[facility]/ZIP Co de Phone Number [facility] [employer] [place] [address] * Oxyhemoglobin, pulmonary artery (05/22/2025 1:33 PM CDT) Oxyhemoglobin, PA 96.9 % Comment: Interpretive Data No reference range established. Current interpretive data was last revised 2020. Blood 05/22/2025 1:33 PM CDT 05/22/2025 1:42 PM CDT us Addy Tapia MD LAB BLOOD ORDERABLES Fin al Result Performing Organization Address City/[facility] Co de Phone Number [facility] [place] [address] * (ABNORMAL) Hemoglobin total, pulmonary artery (05/22/2025 1:33 PM CDT) Hemoglobin total, PA 7.3(L) 13.0 - 17.5 g/dL Blood 05/22/2025 1:33 PM CDT 05/22/2025 1:42 PM CDT us Zev Cowart MD PhD LAB BLOOD ORDERABLES Fi nal Result Performing Organization Address [facility] Co de Phone Number [facility] [place] [address] * Critical Care (05/22/2025 12:36 PM CDT) [...] plan with the patient's team and other medical/corporate learning consultant staff. This time was in addition [...] PM CDT 05/22/2025 12:15 PM CDT Result [facility] Addy Tapia MD LAB POCT ORDERABLES - DE VICE Final Result Performing Organization Address [facility] Co ma Phone Number [facility] [place] [address] * (ABNORMAL) POCT glucose (05/22/2025 11:16 AM CDT) Glucose, POC 209(H) 70 - 199 mg/dL Blood 05/22/2025 11:1 6 AM CDT 05/22/2025 11:16 AM CDT Result [facility] Addy Tapia MD LAB POCT ORDERABLES - DE VICE Final Result Performing Organization Address [facility] Co ma Phone Number [facility] [place] [address] * Oxyhemoglobin, central venous (05/22/2025 9:04 AM CDT) Oxyhemoglobin, CV 88.6 % Comment: Interpretive Data No reference range established. Current interpretive data was last revised 2020. Blood 05/22/2025 9:04 AM CDT 05/22/2025 9:11 AM CDT Result [facility] Addy Tapia MD LAB BLOOD ORDERABLES Fin al Result Performing Organization Address [facility] Co de Phone Number [facility] [place] [address] * Oxyhemoglobin, pulmonary artery (05/22/2025 9:04 AM CDT) Oxyhemoglobin, PA 95.2 % Comment: Interpretive Data No reference range established. Current interpretive data was last revised 2020. Blood 05/22/2025 9:04 AM CDT 05/22/2025 9:12 AM CDT Zev Cowart MD PhD LAB BLOOD ORDERABLES Fi nal Result Performing Organization Address [facility] de Phone Number [facility] [place] [address] * (ABNORMAL) Hemoglobin total, pulmonary artery (05/22/2025 9:04 AM CDT) Pathologist [facility] Hemoglobin total, PA 7.5(L) 13.0 - 17.5 g/dL Blood 05/22/2025 9:04 AM CDT 05/22/2025 9:12 AM CDT Zev Cowart MD PhD LAB BLOOD ORDERABLES Fi nal Result Performing Organization Address [facility] Co de Phone Number [facility] [place] [address] * (ABNORMAL) POC Blood Gas and Chemistries, Arterial - (05/22/2025 8:09 AM CDT) pH, Art POC 7.44 7.35 - 7.45 pCO2, Art POC 40 35 - 45 mmHg [facility] pO2, Art POC 100 83 - 108 mmHg [facility] Na, POC 136 135 - 145 mmol/L [facility] K POC 4.4 3.3 - 4.9 mmol/L [facility] Comment: Interpretive Data Not all point of care methods assess for hemolysis. Confirm with instrument and retest K+ if not consistent with clinical signs and symptoms. Current Interpretive Data was last revised on 2024. Cl, POC 103 97 - 110 mmol/L [facility] Ionized Ca, POC 4.69 4.50 - 5.10 mg/dL [facility] Glucose, POC 145 70 - 199 mg/dL [facility] Lactate POC 1.0 0.7 - 2.0 mmol/L [facility] SO2 (sameer) arterial 98(H) 90 - 95 % [facility] Base excess, POC 2.8 mmol/L [facility] HCO3, Art POC 27 20 - 30 mmol/L [facility] Hct, POC 40.0(L) 41.4 - 51.6 % [facility] Total Hb, POC 13.2(L) 13.8 - 17.2 g/dL [facility] Blood 05/22/2025 8:0 9 AM CDT 05/22/2025 8:09 AM CDT us Addy Tapia MD LAB POCT ORDERABLES - DE VICE Final Result [facility] [employer] [place] [address] * (ABNORMAL) Hemoglobin total, pulmonary artery (05/22/2025 8:06 AM CDT) Hemoglobin total, PA 7.7(L) 13.0 - 17.5 g/dL Blood 05/22/2025 8:06 AM CDT 05/22/2025 8:11 AM CDT us Zev Cowart MD PhD LAB BLOOD ORDERABLES Fi nal Result [facility] [employer] [place] [address] * POCT glucose (05/22/2025 5:59 AM CDT) Glucose, POC 133 70 - 199 mg/dL Blood 05/22/2025 5:59 AM CDT 05/22/2025 5:59 AM CDT Addy Tapia MD LAB POCT ORDERABLES - DE VICE Final Result Performing Organization Address [facility] Co de Phone Number [facility] [place] [address] * (ABNORMAL) Hemoglobin total, pulmonary artery (05/22/2025 5:27 AM CDT) Hemoglobin total, PA 8.3(L) 13.0 - 17.5 g/dL Blood 05/22/2025 5:27 AM CDT 05/22/2025 5:46 AM CDT Bar Gamble MD LAB BLOOD ORDERABLES Final R esult Performing Organization Address [facility] Co de Phone Number [facility] [employer] [place] [address] * Tacrolimus level trough (05/22/2025 5:27 AM CDT) Tacrolimus trough 3.0 ng/mL Comment: Interpretive Data Testing performed by liquid chromatography-tandem mass spectrometry. Therapeutic concentrations vary depending on type of transplanted organ and time elapsed since transplant. Typical trough concentrations range from 5-15 ng/mL. This test was developed and its performance characteristics determined by the [facility] consistent with CLIA requirements. This test has not been cleared or approved by the [place] Food and Drug administration. Current interpretive data last reviewed 2020. Blood 05/22/2025 5:27 AM CDT 05/22/2025 5:46 AM CDT Zev Cowart MD PhD LAB BLOOD ORDERABLES Fi nal Result Performing Organization Address [facility] Co de Phone Number [facility] [employer] [place] [address] * POCT glucose (05/22/2025 5:26 AM CDT) Glucose, POC 127 70 - 199 mg/dL Blood 05/22/2025 5:26 AM CDT 05/22/2025 5:26 AM CDT Addy Jamar Tapia MD LAB POCT ORDERABLES - DE VICE Final Result [facility] Department [place] [address] * XR Chest 1 View (05/22/2025 5:13 AM CDT) Anatomical Region Laterality Modality Body, Chest N/A Digital Radiogra phy 05/22/2025 11:1 6 AM CDT Impressions 05/22/2025 2:26 PM CDT First exam: Interval extubation. Right internal jugular central venous catheter with tip overlying the superior vena cava. Right internal jugular [place] catheter tip overlies the main pulmonary artery. [...] the superior vena cava. Right internal jugular [place] catheter tip overlies the main pulmonary artery. [...] it. Electronically signed by: Bar Summers M.D. Bar Gamble MD IMG XR PROCEDURES Final Resu lt * POCT glucose (05/22/2025 3:05 AM CDT) Pathologist [facility] Glucose, POC 111 70 - 199 mg/dL Blood 05/22/2025 3:05 AM CDT 05/22/2025 3:05 AM CDT Addy Tapia MD LAB POCT ORDERABLES - DE VICE Final Result [facility] Department [place] [address] * (ABNORMAL) Blood gas, arterial (05/22/2025 1:35 AM CDT) pH, Art 7.50(H) 7.35 - 7.45 PCO2, Arterial 43 35 - 45 mmHg [facility] PO2, Arterial 91 83 - 108 mmHg [facility] HCO3 Art (Calculated) 35(H) 20 - 30 mmol/L [facility] BE, art 9 mmol/L [facility] Comment: Interpretive Data No Reference Range Established Current Interpretive Data was last revised on 2017 O2 Sat Art (Measured) 98(H) 90 - 95 % [facility] Blood 05/22/2025 1:35 AM CDT 05/22/2025 1:40 AM CDT Addy Tapia MD LAB BLOOD ORDERABLES Fin al Result Performing Organization Address [facility] Co de Phone Number [facility] Department [place] [address] * POCT glucose (05/22/2025 1:30 AM CDT) Glucose, POC 109 70 - 199 mg/dL Blood 05/22/2025 1:30 AM CDT 05/22/2025 1:30 AM CDT Addy Tapia MD LAB POCT ORDERABLES - DE VICE Final Result Performing Organization Address [facility] Phone Number [facility] Department [place] [address] * POCT glucose (05/22/2025 12:26 AM CDT) Glucose, POC 141 70 - 199 mg/dL Blood 05/22/2025 12:2 6 AM CDT 05/22/2025 12:26 AM CDT Addy Tapia MD LAB POCT ORDERABLES - DE VICE Final Result Performing Organization Address [facility] Phone Number [facility] [place] [address] * Potassium, whole blood (05/22/2025 12:21 AM CDT) Potassium, bld 3.9 3.3 - 4.9 mmol/L Blood 05/22/2025 12:2 1 AM CDT 05/22/2025 12:44 AM CDT Zev Cowart MD PhD LAB BLOOD ORDERABLES Fi nal Result Performing Organization Address [facility] Co de Phone Number [facility] Department [place] [address] * (ABNORMAL) eGFR (05/22/2025 12:21 AM CDT) [facility] eGFR 47(L) >=60 mL/min/1. 73 m2 Comment: [...] ORDERABLES Final R esult Performing Organization Address City/[facility]/ZIP Co de Phone Number [facility] [place] [address] * (ABNORMAL) Hepatitis C (HCV) RNA PCR, quantitative Blood Blood, Venous (05/22/2025 12:21 AM CDT) [facility] HCV RNA result Detected( A) [facility] Comment: The quantifiable range of this assay is 15 IU/mL to 100,000,000 IU/mL (1.18 log IU/mL to 8.00 log IU/mL). Testing was performed by the CARLOS 6800 HCV Test ([employer] Testing performed at [facility] Current Interpretive Data was last revised on 2021 HCV RNA IU/mL 281 IUnits/mL [facility] HCV RNA log IU/mL 2.45 log IUnits/mL [facility] Blood Venous blood specimen / Unknown 05/22/2025 12:21 AM CDT 05/22/2025 1:20 AM CDT us Lindsay Arciniega MD LAB MICROBIOLOGY - GENERAL ORDER LINH Final Result Performing Organization Address City/[facility]/ZIP Co de Phone Number [facility] [place] [address] [facility] * (ABNORMAL) CBC without differential (05/22/2025 12:21 AM CDT) [facility] WBC 20.40(H) 3.80 - 9.90 K/cumm Hgb 8.2(L) 13.0 - 17.5 g/dL [facility] Hct 24.7(L) 38.9 - 50.3 % [facility] Plt 157 150 - 400 K/cumm [facility] MPV 11.4 9.1 - 12.3 fL [facility] RBC 3.02(L) 4.30 - 5.80 M/cumm [facility] MCV 81.8 81.3 - 96.4 fL [facility] MCH 27.2 27.1 - 33.3 pg [facility] MCHC 33.2 32.3 - 35.7 g/dL [facility] RDW CV 15.1(H) 11.1 - 14.9 % [facility] RDW SD 45.4 35.7 - 48.1 fL [facility] NRBC abs 0.00 0.00 - 0.01 K/cumm [facility] Blood 05/22/2025 12:2 1 AM CDT 05/22/2025 1:07 AM CDT us Zev Cowart MD PhD LAB BLOOD ORDERABLES Fi nal Result [facility] [place] [address] * (ABNORMAL) Phosphorus (05/22/2025 12:21 AM CDT) Pathologist [facility] Phosphorus, pl 5.1(H) 2.3 - 4.5 mg/dL Blood 05/22/2025 12:2 1 AM CDT 05/22/2025 1:07 AM CDT Zev Cowart MD PhD LAB BLOOD ORDERABLES Fi nal Result Performing Organization Address [facility] Co de Phone Number [facility] [place] [address] * Magnesium (05/22/2025 12:21 AM CDT) Pathologist [facility] Magnesium 2.5 1.4 - 2.5 mg/dL Blood 05/22/2025 12:2 1 AM CDT 05/22/2025 1:07 AM CDT Zev Cowart MD PhD LAB BLOOD ORDERABLES Fi nal Result Performing Organization Address [facility] de Phone Number [facility] [place] [address] * (ABNORMAL) Hepatic function panel (05/22/2025 12:21 AM CDT) Bilirubin, total 1.4(H) 0.1 - 1.2 mg/dL Bilirubin, direct 0.8(H) 0.1 - 0.3 mg/dL [facility] Protein, pl 5.8(L) 6.5 - 8.5 g/dL [facility] Albumin 3.9 3.5 - 5.0 g/dL [facility] Alk phos 137(H) 40 - 130 Units/L [facility] ALT 24 7 - 55 Units/L [facility] AST 91(H) 10 - 50 Units/L [facility] Blood 05/22/2025 12:2 1 AM CDT 05/22/2025 1:07 AM CDT Bar Gamble MD LAB BLOOD ORDERABLES Final R esult Performing Organization Address City/[facility]/ZIP Co de Phone Number [facility] Department [place] [employer] [place] [address] * (ABNORMAL) Basic metabolic panel (05/22/2025 12:21 AM CDT) [facility] Sodium 138 135 - 145 mmol/L Potassium, pl 4.0 3.3 - 4.9 mmol/L [facility] Chloride 100 97 - 110 mmol/L [facility] CO2 29 22 - 32 mmol/L [facility] Anion gap 9 2 - 15 mmol/L [facility] BUN 38(H) 6 - 25 mg/dL [facility] Creatinine 1.65(H) 0.80 - 1.30 mg/dL [facility] Glucose 138 70 - 199 mg/dL [facility] Comment: Interpretive Data Fasting glucose >/= [...] 2022. Calcium 9.7 8.5 - 10.3 mg/dL [facility] Blood 05/22/2025 12:2 1 AM CDT 05/22/2025 1:07 AM CDT Bar Gamble MD LAB BLOOD ORDERABLES Final R esult Performing Organization Address City/[facility]/ZIP Co de Phone Number [facility] Department [place] [employer] [place] [address] * POCT glucose (05/21/2025 11:11 PM CDT) Glucose, POC 185 70 - 199 mg/dL Blood 05/21/2025 11:1 1 PM CDT 05/21/2025 11:11 PM CDT Addy Tapia MD LAB POCT ORDERABLES - DE VICE Final Result Performing Organization Address City/[facility]/ZIP Co de Phone Number [facility] Department [place] [address] * (ABNORMAL) Hemoglobin total, pulmonary artery (05/21/2025 11:10 PM CDT) Hemoglobin total, PA 8.0(L) 13.0 - 17.5 g/dL Blood 05/21/2025 11:1 0 PM CDT 05/21/2025 11:28 PM CDT Bar Gamble MD LAB BLOOD ORDERABLES Final R esult Performing Organization Address [facility] Co de Phone Number [facility] Department [place] [address] * (ABNORMAL) POCT glucose (05/21/2025 10:12 PM CDT) Glucose, POC 208(H) 70 - 199 mg/dL Blood 05/21/2025 10:1 2 PM CDT 05/21/2025 10:12 PM CDT Addy Tapia MD LAB POCT ORDERABLES - DE VICE Final Result Performing Organization Address [facility] Co de Phone Number [facility] [place] [address] * XR Chest 1 View - in PM (05/21/2025 10:03 PM CDT) Anatomical Region Laterality Modality Body, Chest N/A Digital Radiogra phy 05/22/2025 11:1 6 AM CDT Impressions 05/22/2025 2:26 PM CDT First exam: Interval extubation. Right internal jugular central venous catheter with tip overlying the superior vena cava. Right internal jugular [place]ne catheter tip overlies the main pulmonary artery. [...] the superior vena cava. Right internal jugular [place] catheter tip overlies the main pulmonary artery. [...] Electronically signed by: Bar Summers M.D. us Ness Roberson NURSE FIRST AID IMG XR PROCEDURES Huong l Result * POCT glucose (05/21/2025 8:51 PM CDT) Glucose, POC 197 70 - 199 mg/dL Blood 05/21/2025 8:51 PM CDT 05/21/2025 8:51 PM CDT Addy Tapia MD LAB POCT ORDERABLES - DE VICE Final Result Performing Organization Address City/[facility] Co de Phone Number [facility] [employer] [place] [address] * POCT glucose (05/21/2025 8:13 PM CDT) Glucose, POC 168 70 - 199 mg/dL Blood 05/21/2025 8:13 PM CDT 05/21/2025 8:13 PM CDT Addy Tapia MD LAB POCT ORDERABLES - DE VICE Final Result Performing Organization Address [facility] Co de Phone Number [facility] [employer] [place] [address] * POCT glucose (05/21/2025 7:10 PM CDT) Glucose, POC 151 70 - 199 mg/dL Blood 05/21/2025 7:10 PM CDT 05/21/2025 7:10 PM CDT Addy Tapia MD LAB POCT ORDERABLES - DE VICE Final Result Performing Organization Address [facility] Co de Phone Number [facility] [employer] [place] [address] * POCT glucose (05/21/2025 6:42 PM CDT) Glucose, POC 166 70 - 199 mg/dL Blood 05/21/2025 6:42 PM CDT 05/21/2025 6:42 PM CDT Zev Cowart MD PhD LAB POCT ORDERABLES - D EVICE Final Result Performing Organization Address [facility] Co de Phone Number [facility] [employer] [place] [address] * (ABNORMAL) POCT glucose (05/21/2025 6:25 PM CDT) Glucose, POC 204(H) 70 - 199 mg/dL Blood 05/21/2025 6:25 PM CDT 05/21/2025 6:25 PM CDT Zev Cowrat MD PhD LAB POCT ORDERABLES - D EVICE Final Result Performing Organization Address [facility] de Phone Number [facility] [employer] [place] [address] * (ABNORMAL) POCT glucose (05/21/2025 5:58 PM CDT) Glucose, POC 69(L) 70 - 199 mg/dL Blood 05/21/2025 5:58 PM CDT 05/21/2025 5:58 PM CDT Zev Cowart MD PhD LAB POCT ORDERABLES - D EVICE Final Result Performing Organization Address [facility] de Phone Number [facility] [employer] [place] [address] * POCT glucose (05/21/2025 5:00 PM CDT) Glucose, POC 107 70 - 199 mg/dL Blood 05/21/2025 5:00 PM CDT 05/21/2025 5:00 PM CDT Zev Cowart MD PhD LAB POCT ORDERABLES - D RISHI Final Result Performing Organization Address [facility] de Phone Number [facility] [employer] [place] [address] * Oxyhemoglobin, pulmonary artery (05/21/2025 4:00 PM CDT) Oxyhemoglobin, PA 87.0 % Comment: Interpretive Data No reference range established. Current interpretive data was last revised 2020. Blood 05/21/2025 4:00 PM CDT 05/21/2025 4:11 PM CDT Bar Gamble MD LAB BLOOD ORDERABLES Final R esult Performing Organization Address [facility] de Phone Number [facility] [place] [address] * (ABNORMAL) Hemoglobin total, pulmonary artery (05/21/2025 4:00 PM CDT) Hemoglobin total, PA 8.2(L) 13.0 - 17.5 g/dL Blood 05/21/2025 4:00 PM CDT 05/21/2025 4:11 PM CDT Bar Gamble MD LAB BLOOD ORDERABLES Final R esult Performing Organization Address [facility] de Phone Number [facility] [place] [address] * (ABNORMAL) eGFR (05/21/2025 4:00 PM CDT) [...] ORDERABLES Final R esult Performing Organization Address City/[facility]/ZIP Co de Phone Number [facility] Department [place] [address] * Lactate, whole blood (05/21/2025 4:00 PM CDT) Pathologist [facility] Lactate, bld 1.4 0.7 - 2.0 mmol/L Blood 05/21/2025 4:00 PM CDT 05/21/2025 4:11 PM CDT us aBr Gamble MD LAB BLOOD ORDERABLES Final R esult [facility] Department [place] [address] * (ABNORMAL) Basic metabolic panel (05/21/2025 4:00 PM CDT) Pathologist [facility] Sodium 138 135 - 145 mmol/L Potassium, pl 3.9 3.3 - 4.9 mmol/L [facility] Chloride 102 97 - 110 mmol/L [facility] CO2 28 22 - 32 mmol/L [facility] Anion gap 8 2 - 15 mmol/L [facility] BUN 36(H) 6 - 25 mg/dL [facility] Creatinine 1.42(H) 0.80 - 1.30 mg/dL [facility] Glucose 128 70 - 199 mg/dL [facility] Comment: Interpretive Data Fasting glucose >/= [...] 2022. Calcium 9.8 8.5 - 10.3 mg/dL [facility] Blood 05/21/2025 4:00 PM CDT 05/21/2025 4:22 PM CDT us Bar Gamble MD LAB BLOOD ORDERABLES Final R esult Performing Organization Address City/[facility]/ZIP Co de Phone Number [facility] [employer] [place] [address] * POCT glucose (05/21/2025 3:54 PM CDT) Glucose, POC 143 70 - 199 mg/dL Blood 05/21/2025 3:54 PM CDT 05/21/2025 3:54 PM CDT us Zev Cowart MD PhD LAB POCT ORDERABLES - D RISHI Final Result Performing Organization Address City/[facility]/ZIP Co de Phone Number [facility] [employer] [place] [address] * POCT glucose (05/21/2025 3:04 PM CDT) Glucose, POC 152 70 - 199 mg/dL Blood 05/21/2025 3:04 PM CDT 05/21/2025 3:04 PM CDT Zev Cowart MD PhD LAB POCT ORDERABLES - D EVICE Final Result Performing Organization Address [facility] de Phone Number [facility] [place] [address] * (ABNORMAL) POCT glucose (05/21/2025 1:50 PM CDT) Glucose, POC 208(H) 70 - 199 mg/dL Blood 05/21/2025 1:50 PM CDT 05/21/2025 1:50 PM CDT Zev Cowart MD PhD LAB POCT ORDERABLES - D EVICE Final Result Performing Organization Address [facility] de Phone Number [facility] [employer] [place] [address] * (ABNORMAL) POCT glucose (05/21/2025 1:03 PM CDT) Glucose, POC 232(H) 70 - 199 mg/dL Blood 05/21/2025 1:03 PM CDT 05/21/2025 1:03 PM CDT Zev Cowart MD PhD LAB POCT ORDERABLES - D EVICE Final Result Performing Organization Address [facility] [place] [address] * (ABNORMAL) POCT glucose (05/21/2025 11:52 AM CDT) Glucose, POC 240(H) 70 - 199 mg/dL Blood 05/21/2025 11:5 2 AM CDT 05/21/2025 11:52 AM CDT us Zev Cowart MD PhD LAB POCT ORDERABLES - D RISHI Final Result [facility] [place] [address] * (ABNORMAL) Differential, auto (05/21/2025 11:28 AM CDT) Neutrophil abs 13.62(H) 1.50 - 6.50 K/cumm Imm gran abs 0.09 0.00 - 0.10 K/cumm [facility] Lymphocyte abs 0.21(L) 0.80 - 3.30 K/cumm [facility] Monocyte abs 0.29 0.20 - 0.80 K/cumm [facility] Eosinophil abs 0.00 0.00 - 0.50 K/cumm [facility] Basophil abs 0.01 0.00 - 0.10 K/cumm [facility] Neutrophil pct 95.8 % [facility] Comment: Interpretive Data Percent cell count reference ranges are not reported, since discordance with absolute values may lead to misinterpretation of CBC data. Current Interpretive Data was last revised on 2018. Imm gran pct 0.6 % [facility] Comment: Interpretive Data Percent cell count reference ranges are not reported, since discordance with absolute values may lead to misinterpretation of CBC data. Current Interpretive Data was last revised on 2018. Lymphocyte pct 1.5 % [facility] Comment: Interpretive Data Percent cell count reference ranges are not reported, since discordance with absolute values may lead to misinterpretation of CBC data. Current Interpretive Data was last revised on 2018. Monocyte pct 2.0 % [facility] Comment: Interpretive Data Percent cell count reference ranges are not reported, since discordance with absolute values may lead to misinterpretation of CBC data. Current Interpretive Data was last revised on 2018. Eosinophil pct 0.0 % [facility] Comment: Interpretive Data Percent cell count reference ranges are not reported, since discordance with absolute values may lead to misinterpretation of CBC data. Current Interpretive Data was last revised on 2018. Basophil pct 0.1 % [facility] Comment: Interpretive Data Percent cell count reference ranges are not reported, since discordance with absolute values may lead to misinterpretation of CBC data. Current Interpretive Data was last revised on 2018. Blood 05/21/2025 11:2 8 AM CDT 05/21/2025 11:52 AM CDT Ness Roberson NP LAB BLOOD ORDERABLES F inal Result Performing Organization Address [facility] Co de Phone Number [facility] Department [place] [employer] [place] [address] * (ABNORMAL) CBC with auto differential (05/21/2025 11:28 AM CDT) WBC 14.22(H) 3.80 - 9.90 K/cumm Hgb 8.1(L) 13.0 - 17.5 g/dL [facility] Hct 24.6(L) 38.9 - 50.3 % [facility] Plt 171 150 - 400 K/cumm [facility] MPV 11.6 9.1 - 12.3 fL [facility] RBC 3.01(L) 4.30 - 5.80 M/cumm [facility] MCV 81.7 81.3 - 96.4 fL [facility] MCH 26.9(L) 27.1 - 33.3 pg [facility] MCHC 32.9 32.3 - 35.7 g/dL [facility] RDW CV 15.1(H) 11.1 - 14.9 % [facility] RDW SD 45.5 35.7 - 48.1 fL [facility] NRBC abs 0.00 0.00 - 0.01 K/cumm [facility] Blood 05/21/2025 11:2 8 AM CDT 05/21/2025 11:52 AM CDT Ness Roberson NP LAB BLOOD ORDERABLES F inal Result Performing Organization Address City/[facility]/ZIP Co de Phone Number [facility] [employer] [place] [address] * Critical Care (05/21/2025 10:59 AM CDT) [...] plan with the ICU team and other medical/corporate learning consultant staff, making frequent assessments and decisions [...] Performing Organization Address [facility] de Phone Number [facility] [place] [address] * (ABNORMAL) Hemoglobin total, pulmonary artery (05/21/2025 10:45 AM CDT) Hemoglobin total, PA 8.1(L) 13.0 - 17.5 g/dL Blood 05/21/2025 10:4 5 AM CDT 05/21/2025 10:51 AM CDT Bar Gamble MD LAB BLOOD ORDERABLES Final R esult Performing Organization Address [facility] de Phone Number [facility] [place] [address] * (ABNORMAL) POCT glucose (05/21/2025 10:43 AM CDT) Glucose, POC 254(H) 70 - 199 mg/dL Blood 05/21/2025 10:4 3 AM CDT 05/21/2025 10:43 AM CDT us Zev Cowart MD PhD LAB POCT ORDERABLES - D EVICE Final Result Performing Organization Address [facility] de Phone Number [facility] Department [place] [address] * Lactate (05/21/2025 10:41 AM CDT) Lactate 1.7 0.7 - 2.0 mmol/L Blood 05/21/2025 10:4 1 AM CDT 05/21/2025 10:58 AM CDT us Zev Cowart MD PhD LAB BLOOD ORDERABLES Fi nal Result Performing Organization Address [facility] Co de Phone Number [facility] Department [place] [address] * Potassium, whole blood (05/21/2025 10:41 AM CDT) Potassium, bld 4.1 3.3 - 4.9 mmol/L Blood 05/21/2025 10:4 1 AM CDT 05/21/2025 10:51 AM CDT Zev Cowart MD PhD LAB BLOOD ORDERABLES Fi nal Result Performing Organization Address [facility] de Phone Number [facility] [place] [address] * (ABNORMAL) eGFR (05/21/2025 10:41 AM CDT) [...] ORDERABLES Fi nal Result Performing Organization Address City[facility] Hospital/ZIP Co de Phone Number [facility] [place] [address] * (ABNORMAL) Protime-INR (05/21/2025 10:41 AM CDT) PT 13.8(H) 9.7 - 13.0 sec INR 1.27(H) 0.90 - 1.20 [facility] Comment: Interpretive data Oral anticoagulant therapeutic [...] Performing Organization Address [facility] de Phone Number [facility] [place] [address] * (ABNORMAL) Blood gas, arterial (05/21/2025 10:41 AM CDT) pH, Art 7.44 7.35 - 7.45 PCO2, Arterial 37 35 - 45 mmHg [facility] PO2, Arterial 165(H) 83 - 108 mmHg [facility] HCO3 Art (Calculated) 26 20 - 30 mmol/L [facility] BE, art 1 mmol/L [facility] Comment: Interpretive Data No Reference Range Established Current Interpretive Data was last revised on 2017 O2 Sat Art (Measured) 100(H) 90 - 95 % [facility] Blood 05/21/2025 10:4 1 AM CDT 05/21/2025 10:51 AM CDT Zev Cowart MD PhD LAB BLOOD ORDERABLES Fi nal Result Performing Organization Address [facility] de Phone Number [facility] Department [place] [address] * (ABNORMAL) Basic metabolic panel (05/21/2025 10:41 AM CDT) [facility] Sodium 136 135 - 145 mmol/L Potassium, pl 4.0 3.3 - 4.9 mmol/L [facility] Chloride 99 97 - 110 mmol/L [facility] CO2 27 22 - 32 mmol/L [facility] Anion gap 10 2 - 15 mmol/L [facility] BUN 36(H) 6 - 25 mg/dL [facility] Creatinine 1.36(H) 0.80 - 1.30 mg/dL [facility] Glucose 248(H) 70 - 199 mg/dL [facility] Comment: Interpretive Data Fasting glucose >/= [...] 2022. Calcium 9.9 8.5 - 10.3 mg/dL [facility] Blood 05/21/2025 10:4 1 AM CDT 05/21/2025 10:58 AM CDT Zev Cowart MD PhD LAB BLOOD ORDERABLES Fi nal Result [facility] [place] [address] * (ABNORMAL) POC Blood Gas and Chemistries, Arterial - (05/21/2025 9:29 AM CDT) [facility] pH, Art POC 7.49(H) 7.35 - 7.45 pCO2, Art POC 34(L) 35 - 45 mmHg [facility] pO2, Art POC 148(H) 83 - 108 mmHg [facility] Na, POC 139 135 - 145 mmol/L [facility] K POC 4.4 3.3 - 4.9 mmol/L [facility] Comment: Interpretive Data Not all point of care methods assess for hemolysis. Confirm with instrument and retest K+ if not consistent with clinical signs and symptoms. Current Interpretive Data was last revised on 2024. Cl, POC 105 97 - 110 mmol/L [facility] Ionized Ca, POC 5.11(H) 4.50 - 5.10 mg/dL [facility] Glucose, POC 237(H) 70 - 199 mg/dL [facility] Lactate POC 1.1 0.7 - 2.0 mmol/L [facility] SO2 (sameer) arterial 99(H) 90 - 95 % [facility] Base excess, POC 2.6 mmol/L [facility] HCO3, Art POC 26 20 - 30 mmol/L [facility] Hct, POC 26.0(L) 41.4 - 51.6 % [facility] Total Hb, POC 8.7(L) 13.8 - 17.2 g/dL [facility] Blood 05/21/2025 9:29 AM CDT 05/21/2025 9:29 AM CDT us Zev Cowart MD PhD LAB POCT ORDERABLES - D EVICE Final Result [facility] Department [place] [address] * XR Chest 1 View (05/21/2025 8:27 AM CDT) Anatomical Region Laterality Modality Body, Chest N/A Digital Radiogra phy 05/21/2025 11:3 7 AM CDT Impressions 05/21/2025 11:50 AM CDT Comparison with 05/20/2025. An endotracheal tube is approximately 4 centimeters above the demetrius. Right internal jugular central venous catheter with tip overlying the superior vena cava. Right internal jugular [place] catheter tip overlies the main pulmonary artery. [...] the superior vena cava. Right internal jugular [place] catheter tip overlies the main pulmonary artery. [...] Electronically signed by: Jessica Jackson M.D. us Zev Cowart MD PhD IMG [...] mediastinal drains are in place. Partially imaged [place] catheter. Epicardial pacer wires are in place. [...] mediastinal drains are in place. Partially imaged [place] catheter. Epicardial pacer wires are in place. [...] * POCT glucose (05/21/2025 7:45 AM CDT) [facility] Signature Glucose, POC 198 70 - 199 mg/dL Blood 05/21/2025 7:45 AM CDT 05/21/2025 7:45 AM CDT us Zev Cowart MD PhD LAB POCT ORDERABLES - D EVICE Final Result [facility] Department [place] [address] * HLA Donor Specific Antibody Report (05/21/2025 [...] Performing Organization Address [facility] Co de Phone Number [facility] [employer] [place] [address] * Oxyhemoglobin, pulmonary artery (05/21/2025 7:38 AM CDT) Oxyhemoglobin, PA 86.0 % Comment: Interpretive Data No reference range established. Current interpretive data was last revised 2020. Blood 05/21/2025 7:38 AM CDT 05/21/2025 7:44 AM CDT us Bar Gamble MD LAB BLOOD ORDERABLES Final R esult Performing Organization Address [facility] de Phone Number [facility] [employer] [place] [address] * (ABNORMAL) Hemoglobin total, pulmonary artery (05/21/2025 7:38 AM CDT) Hemoglobin total, PA 8.7(L) 13.0 - 17.5 g/dL Blood 05/21/2025 7:38 AM CDT 05/21/2025 7:44 AM CDT us Bar Gamble MD LAB BLOOD ORDERABLES Final R esult Performing Organization Address [facility] Co de Phone Number [facility] [place] [address] * aPTT (05/21/2025 7:38 AM CDT) aPTT [...] Performing Organization Address [facility] de Phone Number [facility] [place] [address] * (ABNORMAL) Protime-INR (05/21/2025 7:38 AM CDT) PT 14.1(H) 9.7 - 13.0 sec INR 1.30(H) 0.90 - 1.20 [facility] Comment: Interpretive data Oral anticoagulant therapeutic [...] Performing Organization Address [facility] Co de Phone Number [facility] [place] [address] * (ABNORMAL) Type and screen (05/21/2025 7:38 AM CDT) Poppy, indirect Positive(A) ABO Rh O Positive [facility] Blood 05/21/2025 7:38 AM CDT 05/21/2025 7:51 AM CDT Narrative [facility] - 05/21/2025 8:50 AM CDT Has the patient had Daratumumab or Isatuximab in the past 6 months?->Unknown us Zev Cowart MD PhD LAB BLOOD BANK TEST ORD ERABLES Final Result Performing Organization Address [facility] Co de Phone Number [facility] [place] [employer] [place] [address] * (ABNORMAL) eGFR (05/21/2025 6:44 AM CDT) [...] Performing Organization Address [facility]/ZIP Co de Phone Number [facility] [place] [address] * (ABNORMAL) CBC without differential (05/21/2025 6:44 AM CDT) WBC 15.78(H) 3.80 - 9.90 K/cumm Hgb 8.4(L) 13.0 - 17.5 g/dL [facility] Hct 25.5(L) 38.9 - 50.3 % [facility] Plt 165 150 - 400 K/cumm [facility] MPV 11.4 9.1 - 12.3 fL [facility] RBC 3.09(L) 4.30 - 5.80 M/cumm [facility] MCV 82.5 81.3 - 96.4 fL [facility] MCH 27.2 27.1 - 33.3 pg [facility] MCHC 32.9 32.3 - 35.7 g/dL [facility] RDW CV 15.1(H) 11.1 - 14.9 % [facility] RDW SD 45.6 35.7 - 48.1 fL [facility] NRBC abs 0.00 0.00 - 0.01 K/cumm [facility] Blood 05/21/2025 6:44 AM CDT 05/21/2025 6:56 AM CDT us Bar Gamble MD LAB BLOOD ORDERABLES Final R esult [facility] Department [place] [address] * Triglycerides (05/21/2025 6:44 AM CDT) Triglycerides [...] Performing Organization Address [facility] de Phone Number [facility] [place] [employer] [place] [address] * Phosphorus (05/21/2025 6:44 AM CDT) Phosphorus, pl 2.8 2.3 - 4.5 mg/dL Blood 05/21/2025 6:44 AM CDT 05/21/2025 6:57 AM CDT Zev Cowart MD PhD LAB BLOOD ORDERABLES Fi nal Result Performing Organization Address [facility] de Phone Number [facility] [employer] [place] [address] * (ABNORMAL) Magnesium (05/21/2025 6:44 AM CDT) Magnesium 2.6(H) 1.4 - 2.5 mg/dL Blood 05/21/2025 6:44 AM CDT 05/21/2025 6:57 AM CDT us Bar Gamble MD LAB BLOOD ORDERABLES Final R esult Performing Organization Address [facility] de Phone Number [facility] [employer] [place] [address] * (ABNORMAL) Hepatic function panel (05/21/2025 6:44 AM CDT) Bilirubin, total 3.0(H) 0.1 - 1.2 mg/dL Comment:Reviewed Bilirubin, direct 1.4(H) 0.1 - 0.3 mg/dL [facility] Comment:Reviewed Protein, pl 6.0(L) 6.5 - 8.5 g/dL [facility] Albumin 4.1 3.5 - 5.0 g/dL [facility] Alk phos 167(H) 40 - 130 Units/L [facility] ALT 25 7 - 55 Units/L [facility] AST 97(H) 10 - 50 Units/L [facility] Comment:Reviewed Blood 05/21/2025 6:44 AM CDT 05/21/2025 6:57 AM CDT Bar Gamble MD LAB BLOOD ORDERABLES Final R esult [facility] Department [place] [address] * (ABNORMAL) Basic metabolic panel (05/21/2025 6:44 AM CDT) Sodium 141 135 - 145 mmol/L Potassium, pl 4.1 3.3 - 4.9 mmol/L [facility] Chloride 103 97 - 110 mmol/L [facility] CO2 26 22 - 32 mmol/L [facility] Anion gap 12 2 - 15 mmol/L [facility] BUN 36(H) 6 - 25 mg/dL [facility] Creatinine 1.36(H) 0.80 - 1.30 mg/dL [facility] Glucose 181 70 - 199 mg/dL [facility] Comment: Interpretive Data Fasting glucose >/= [...] 2022. Calcium 10.1 8.5 - 10.3 mg/dL [facility] Blood 05/21/2025 6:44 AM CDT 05/21/2025 6:57 AM CDT us Bar Gamble MD LAB BLOOD ORDERABLES Final R esult [facility] [place] [address] * (ABNORMAL) POC Blood Gas and Chemistries, Arterial - (05/21/2025 6:37 AM CDT) pH, Art POC 7.43 7.35 - 7.45 pCO2, Art POC 40 35 - 45 mmHg [facility] pO2, Art POC 208(H) 83 - 108 mmHg [facility] Na, POC 138 135 - 145 mmol/L [facility] K POC 4.0 3.3 - 4.9 mmol/L [facility] Comment: Interpretive Data Not all point of care methods assess for hemolysis. Confirm with instrument and retest K+ if not consistent with clinical signs and symptoms. Current Interpretive Data was last revised on 2024. Cl, POC 106 97 - 110 mmol/L [facility] Ionized Ca, POC 5.21(H) 4.50 - 5.10 mg/dL [facility] Glucose, POC 174 70 - 199 mg/dL [facility] Lactate POC 1.4 0.7 - 2.0 mmol/L [facility] SO2 (sameer) arterial 99(H) 90 - 95 % [facility] Base excess, POC 2.0 mmol/L [facility] HCO3, Art POC 26 20 - 30 mmol/L [facility] Hct, POC 26.0(L) 41.4 - 51.6 % [facility] Total Hb, POC 8.8(L) 13.8 - 17.2 g/dL [facility] Blood 05/21/2025 6:37 AM CDT 05/21/2025 6:37 AM CDT us Zev Cowart MD PhD LAB POCT ORDERABLES - D RISHI Final Result [facility] Rad[facility] Department [place] [address] * (ABNORMAL) POC Blood Gas and Chemistries, Arterial - (05/21/2025 5:18 AM CDT) pH, Art POC 7.44 7.35 - 7.45 pCO2, Art POC 39 35 - 45 mmHg [facility] pO2, Art POC 201(H) 83 - 108 mmHg [facility] Na, POC 140 135 - 145 mmol/L [facility] K POC 4.0 3.3 - 4.9 mmol/L [facility] Comment: Interpretive Data Not all point of care methods assess for hemolysis. Confirm with instrument and retest K+ if not consistent with clinical signs and symptoms. Current Interpretive Data was last revised on 2024. Cl, POC 107 97 - 110 mmol/L [facility] Ionized Ca, POC 5.54(H) 4.50 - 5.10 mg/dL [facility] Glucose, POC 161 70 - 199 mg/dL [facility] Lactate POC 1.9 0.7 - 2.0 mmol/L [facility] SO2 (sameer) arterial 99(H) 90 - 95 % [facility] Base excess, POC 2.2 mmol/L [facility] HCO3, Art POC 26 20 - 30 mmol/L [facility] Hct, POC 24.0(L) 41.4 - 51.6 % [facility] Total Hb, POC 7.9(L) 13.8 - 17.2 g/dL [facility] Blood 05/21/2025 5:18 AM CDT 05/21/2025 5:18 AM CDT us Zev Cowart MD PhD LAB POCT ORDERABLES - D RISHI Final Result [facility] [place] [address] * (ABNORMAL) POCT prothrombin time (05/21/2025 4:17 AM CDT) PT, POC 25.2(H) 11.7 - 16.6 sec INR, POC 1.9(H) 0.9 - 1.2 [facility] Blood 05/21/2025 4:17 AM CDT 05/21/2025 4:17 AM CDT Zev Cowart MD PhD LAB POCT ORDERABLES - D EVICE Final Result Performing Organization Address City/[facility]/ZIP Co de Phone Number [facility] [place] [address] * POCT Partial thromboplastin time (PTT) (05/21/2025 4:17 AM CDT) Pathologist [facility] APTT, POC 34.0 32.5 - 46.1 sec Blood 05/21/2025 4:17 AM CDT 05/21/2025 4:17 AM CDT Zev Cowart MD PhD LAB POCT ORDERABLES - D EVICE Final Result Performing Organization Address [facility] de Phone Number [facility] [employer] [place] [address] * (ABNORMAL) POC Blood Gas and Chemistries, Arterial - (05/21/2025 4:17 AM CDT) pH, Art POC 7.47(H) 7.35 - 7.45 pCO2, Art POC 37 35 - 45 mmHg [facility] pO2, Art POC 396(H) 83 - 108 mmHg [facility] Na, POC 138 135 - 145 mmol/L [facility] K POC 3.8 3.3 - 4.9 mmol/L [facility] Comment: Interpretive Data Not all point of care methods assess for hemolysis. Confirm with instrument and retest K+ if not consistent with clinical signs and symptoms. Current Interpretive Data was last revised on 2024. Cl, POC 105 97 - 110 mmol/L [facility] Ionized Ca, POC 5.41(H) 4.50 - 5.10 mg/dL [facility] Glucose, POC 155 70 - 199 mg/dL [facility] Lactate POC 3.6(H) 0.7 - 2.0 mmol/L [facility] SO2 (sameer) arterial 99(H) 90 - 95 % [facility] Base excess, POC 3.1 mmol/L [facility] HCO3, Art POC 27 20 - 30 mmol/L [facility] Hct, POC 27.0(L) 41.4 - 51.6 % [facility] Total Hb, POC 9.1(L) 13.8 - 17.2 g/dL [facility] Blood 05/21/2025 4:17 AM CDT 05/21/2025 4:17 AM CDT Zev Cowart MD PhD LAB POCT ORDERABLES - D EVICE Final Result Performing Organization Address [facility] Co de Phone Number [facility] [employer] [place] [address] * (ABNORMAL) POCT hemoglobin, hematocrit and platelet count (05/21/2025 4:15 AM CDT) Hgb, POC 8.4(L) 13.0 - 17.5 g/dL Hematocrit POC 26.6(L) 38.9 - 50.3 % [facility] Platelet POC 169 150 - 400 K/cumm [facility] Blood 05/21/2025 4:15 AM CDT 05/21/2025 4:15 AM CDT Zev Cowart MD PhD LAB POCT ORDERABLES - D EVICE Final Result Performing Organization Address City/[facility]/ZIP Co de Phone Number [facility] [employer] [place] [address] * POCT heparin/ACT CPB (05/21/2025 3:38 AM CDT) Heparin POC 0.0 units/mL ACT, CPB 142 112 - 174 sec [facility] Blood 05/21/2025 3:38 AM CDT 05/21/2025 3:38 AM CDT us Zev Cowart MD PhD LAB POCT ORDERABLES - D EVICE Final Result [facility] One [facility] Department [place] [address] * (ABNORMAL) POC Blood Gas and Chemistries, Arterial - (05/21/2025 3:36 AM CDT) pH, Art POC 7.51(H) 7.35 - 7.45 pCO2, Art POC 30(L) 35 - 45 mmHg [facility] pO2, Art POC 443(H) 83 - 108 mmHg [facility] Na, POC 137 135 - 145 mmol/L [facility] K POC 3.6 3.3 - 4.9 mmol/L [facility] Comment: Interpretive Data Not all point of care methods assess for hemolysis. Confirm with instrument and retest K+ if not consistent with clinical signs and symptoms. Current Interpretive Data was last revised on 2024. Cl, POC 104 97 - 110 mmol/L [facility] Ionized Ca, POC 5.29(H) 4.50 - 5.10 mg/dL [facility] Glucose, POC 157 70 - 199 mg/dL [facility] Lactate POC 4.2(C) 0.7 - 2.0 mmol/L [facility] SO2 (sameer) arterial 100(H) 90 - 95 % [facility] Base excess, POC 1.2 mmol/L [facility] HCO3, Art POC 24 20 - 30 mmol/L [facility] Hct, POC 29.0(L) 41.4 - 51.6 % [facility] Total Hb, POC 9.5(L) 13.8 - 17.2 g/dL [facility] Blood 05/21/2025 3:36 AM CDT 05/21/2025 3:36 AM CDT Zev Cowart MD PhD LAB POCT ORDERABLES - D EVICE Final Result Performing Organization Address City/[facility] Co de Phone Number [facility] [place] [address] * (ABNORMAL) POCT heparin/ACT CPB (05/21/2025 2:49 AM CDT) Heparin POC <2.8 units/mL ACT, CPB 484(H) 112 - 174 sec [facility] Blood 05/21/2025 2:49 AM CDT 05/21/2025 2:49 AM CDT us Zev Cowart MD PhD LAB POCT ORDERABLES - D EVICE Final Result Performing Organization Address [facility] Co de Phone Number [facility] [place] [address] * (ABNORMAL) POC Blood Gas and Chemistries, Arterial - (05/21/2025 2:48 AM CDT) pH, Art POC 7.38 7.35 - 7.45 pCO2, Art POC 42 35 - 45 mmHg [facility] pO2, Art POC 185(H) 83 - 108 mmHg [facility] Na, POC 138 135 - 145 mmol/L [facility] K POC 3.9 3.3 - 4.9 mmol/L [facility] Comment: Interpretive Data Not all point of care methods assess for hemolysis. Confirm with instrument and retest K+ if not consistent with clinical signs and symptoms. Current Interpretive Data was last revised on 2024. Cl, POC 100 97 - 110 mmol/L [facility] Ionized Ca, POC 4.74 4.50 - 5.10 mg/dL [facility] Glucose, POC 177 70 - 199 mg/dL [facility] Lactate POC 3.7(H) 0.7 - 2.0 mmol/L [facility] SO2 (sameer) arterial 100(H) 90 - 95 % [facility] Base excess, POC -0.4 mmol/L [facility] HCO3, Art POC 25 20 - 30 mmol/L [facility] Hct, POC 30.0(L) 41.4 - 51.6 % [facility] Total Hb, POC 9.9(L) 13.8 - 17.2 g/dL [facility] Blood 05/21/2025 2:48 AM CDT 05/21/2025 2:48 AM CDT us Zev Cowart MD PhD LAB POCT ORDERABLES - D EVICE Final Result [facility] One [facility] Department [place] [address] * (ABNORMAL) POC Blood Gas and Chemistries, Arterial - (05/21/2025 2:30 AM CDT) pH, Art POC 7.39 7.35 - 7.45 pCO2, Art POC 41 35 - 45 mmHg [facility] pO2, Art POC 188(H) 83 - 108 mmHg [facility] Na, POC 137 135 - 145 mmol/L [facility] K POC 3.9 3.3 - 4.9 mmol/L [facility] Comment: Interpretive Data Not all point of care methods assess for hemolysis. Confirm with instrument and retest K+ if not consistent with clinical signs and symptoms. Current Interpretive Data was last revised on 2024. Cl, POC 101 97 - 110 mmol/L [facility] Ionized Ca, POC 4.70 4.50 - 5.10 mg/dL [facility] Glucose, POC 176 70 - 199 mg/dL [facility] Lactate POC 3.5(H) 0.7 - 2.0 mmol/L [facility] SO2 (sameer) arterial 100(H) 90 - 95 % [facility] Base excess, POC -0.2 mmol/L [facility] HCO3, Art POC 25 20 - 30 mmol/L [facility] Hct, POC 29.0(L) 41.4 - 51.6 % [facility] Total Hb, POC 9.5(L) 13.8 - 17.2 g/dL [facility] Blood 05/21/2025 2:30 AM CDT 05/21/2025 2:30 AM CDT Zev Cowart MD PhD LAB POCT ORDERABLES - D EVICE Final Result Performing Organization Address City/[facility]/ZIP Co de Phone Number [facility] [employer] [place] [address] * (ABNORMAL) POCT heparin/ACT CPB (05/21/2025 2:23 AM CDT) Pathologist [facility] Heparin POC 3.4 units/mL ACT, CPB 519(H) 112 - 174 sec [facility] Blood 05/21/2025 2:23 AM CDT 05/21/2025 2:23 AM CDT Zev Cowart MD PhD LAB POCT ORDERABLES - D EVICE Final Result Performing Organization Address [facility] de Phone Number [facility] [place] [address] * (ABNORMAL) POC Blood Gas and Chemistries, Arterial - (05/21/2025 2:16 AM CDT) [facility] pH, Art POC 7.40 7.35 - 7.45 pCO2, Art POC 40 35 - 45 mmHg [facility] pO2, Art POC 187(H) 83 - 108 mmHg [facility] Na, POC 138 135 - 145 mmol/L [facility] K POC 4.0 3.3 - 4.9 mmol/L [facility] Comment: Interpretive Data Not all point of care methods assess for hemolysis. Confirm with instrument and retest K+ if not consistent with clinical signs and symptoms. Current Interpretive Data was last revised on 2024. Cl, POC 100 97 - 110 mmol/L [facility] Ionized Ca, POC 4.71 4.50 - 5.10 mg/dL [facility] Glucose, POC 182 70 - 199 mg/dL [facility] Lactate POC 3.7(H) 0.7 - 2.0 mmol/L [facility] SO2 (sameer) arterial 99(H) 90 - 95 % [facility] Base excess, POC 0.0 mmol/L [facility] [facility] HCO3, Art POC 25 20 - 30 mmol/L [facility] Hct, POC 28.0(L) 41.4 - 51.6 % [facility] Total Hb, POC 9.2(L) 13.8 - 17.2 g/dL [facility] Blood 05/21/2025 2:16 AM CDT 05/21/2025 2:16 AM CDT Zev Cowart MD PhD LAB POCT ORDERABLES - D EVICE Final Result Performing Organization Address City/[facility]/ZIP Co de Phone Number [facility] [place] [address] * (ABNORMAL) POCT heparin/ACT CPB (05/21/2025 2:02 AM CDT) Heparin POC 4.1 units/mL ACT, CPB 564(H) 112 - 174 sec [facility] Blood 05/21/2025 2:02 AM CDT 05/21/2025 2:02 AM CDT Zev Cowart MD PhD LAB POCT ORDERABLES - D EVICE Final Result Performing Organization Address [facility] Co de Phone Number [facility] [place] [address] * Surgical pathology (05/21/2025 1:46 AM CDT) Tissue (Heart, explant) 05/21/2025 1:46 AM CDT Comment:Rest of heart went t o research #[id number] Narrative PATHOLOGY [facility] - 06/02/2025 10:23 AM CDT EPIC results best viewed via link to PDF [facility] [place] [address] Note to Patients: This report may contain [...] Gender: M : 1965 (Age: 60) Address: [address] [place] [id number] Hospital #: [id number] Taken:05/21/2025 Received:05/21/2025 Reported: 06/02/2025 [facility] Type: [facility] Inpatient Service: Cardiology Location: [address] Physician(s): MD Anuel Sahu D.O. 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 Peyton Webber M.D. 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 He is now presenting with heart failure. Operative procedure: Heart transplant (UNOS:[id number]). Specimen(s) Received: A: Lv wall Gross Description: [...] no focal lesions. Labeled A1. Jar 1. /05/21/2025 13:39 PA(s): Donna Connor, MS, PA (ASCP)CM By this signature, I attest that the above diagnosis is based upon my personal examination of the slides(and/or other material). Addenda/Procedures The performance characteristics of some immunohistochemical stains, fluorescence in-situ hybridization tests and immunophenotyping by flow cytometry cited in this report (if any) were determined by the Surgical Pathology and Flow Cytometry Departments at [facility] as part of an ongoing quality compliance manager program and in compliance with federally mandated [...] Surgical Pathology and Flow Cytometry Departments of [facility]. It has not been cleared or approved by the U. S. Food and Drug Administration. IMAGES AND SCANNED DOCUMENTS, IF INCLUDED, ONLY VIEWABLE IN PDF VERSION OF REPORT Addy Tapia MD LAB PATHOLOGY ORDERABLES Final Result PATHOLOGY [facility] 3rd Floor [place], [place] [phone] * (ABNORMAL) POCT heparin/ACT CPB (05/21/2025 1:32 AM CDT) Heparin POC <2.8 units/mL ACT, CPB 529(H) 112 - 174 sec [facility] Blood 05/21/2025 1:32 AM CDT 05/21/2025 1:32 AM CDT us Zev Cowart MD PhD LAB POCT ORDERABLES - D EVICE Final Result [facility] [place] [address] * (ABNORMAL) POC Blood Gas and Chemistries, Arterial - (05/21/2025 1:32 AM CDT) pH, Art POC 7.43 7.35 - 7.45 pCO2, Art POC 38 35 - 45 mmHg [facility] pO2, Art POC 212(H) 83 - 108 mmHg [facility] Na, POC 137 135 - 145 mmol/L [facility] K POC 2.8(L) 3.3 - 4.9 mmol/L [facility] Comment: Interpretive Data Not all point of care methods assess for hemolysis. Confirm with instrument and retest K+ if not consistent with clinical signs and symptoms. Current Interpretive Data was last revised on 2024. Cl, POC 103 97 - 110 mmol/L [facility] Ionized Ca, POC 4.71 4.50 - 5.10 mg/dL [facility] Glucose, POC 226(H) 70 - 199 mg/dL [facility] Lactate POC 2.7(H) 0.7 - 2.0 mmol/L [facility] SO2 (sameer) arterial 100(H) 90 - 95 % [facility] Base excess, POC 0.9 mmol/L [facility] HCO3, Art POC 25 20 - 30 mmol/L [facility] Hct, POC 27.0(L) 41.4 - 51.6 % [facility] Total Hb, POC 8.9(L) 13.8 - 17.2 g/dL [facility] Blood 05/21/2025 1:32 AM CDT 05/21/2025 1:32 AM CDT us Zev Cowart MD PhD LAB POCT ORDERABLES - D EVICE Final Result [facility] [place] [address] * Central Venous Line (05/21/2025 1:22 AM [...] MD PhD ANESTHESIA ORDERABLES Final Result * NM AN CENTRAL LINE QUADRUPLE LUMEN, NM AN PROCEDURE PLACEHOLDER (05/21/2025 1:21 AM CDT) [...] patient tolerated procedure well with no complications Gosia Wilkins MD PhD ANESTHESIA ORDERABLES Edited [...] POCT heparin/ACT CPB (05/21/2025 1:04 AM CDT) [facility] Heparin POC 3.4 units/mL ACT, CPB 559(H) 112 - 174 sec [facility] Blood 05/21/2025 1:04 AM CDT 05/21/2025 1:04 AM CDT us Zev Cowart MD PhD LAB POCT ORDERABLES - D EVICE Final Result [facility] Department [place] [address] * (ABNORMAL) POC Blood Gas and Chemistries, Arterial - (05/21/2025 1:04 AM CDT) [facility] pH, Art POC 7.32(L) 7.35 - 7.45 pCO2, Art POC 48(H) 35 - 45 mmHg [facility] pO2, Art POC 188(H) 83 - 108 mmHg [facility] Na, POC 140 135 - 145 mmol/L [facility] K POC 3.1(L) 3.3 - 4.9 mmol/L [facility] Comment: Interpretive Data Not all point of care methods assess for hemolysis. Confirm with instrument and retest K+ if not consistent with clinical signs and symptoms. Current Interpretive Data was last revised on 2024. Cl, POC 101 97 - 110 mmol/L [facility] Ionized Ca, POC 4.88 4.50 - 5.10 mg/dL [facility] Glucose, POC 255(H) 70 - 199 mg/dL [facility] Lactate POC 2.3(H) 0.7 - 2.0 mmol/L [facility] SO2 (sameer) arterial 100(H) 90 - 95 % [facility] Base excess, POC -1.6 mmol/L [facility] HCO3, Art POC 25 20 - 30 mmol/L [facility] Hct, POC 28.0(L) 41.4 - 51.6 % [facility] Total Hb, POC 9.4(L) 13.8 - 17.2 g/dL [facility] Blood 05/21/2025 1:04 AM CDT 05/21/2025 1:04 AM CDT us Zev Cowart MD PhD LAB POCT ORDERABLES - D EVICE Final Result [facility] Department [place] [address] * (ABNORMAL) POC Blood Gas and Chemistries, Arterial - (05/21/2025 12:48 AM CDT) pH, Art POC 7.40 7.35 - 7.45 pCO2, Art POC 39 35 - 45 mmHg [facility] pO2, Art POC 254(H) 83 - 108 mmHg [facility] Na, POC 140 135 - 145 mmol/L [facility] K POC 3.9 3.3 - 4.9 mmol/L [facility] Comment: Interpretive Data Not all point of care methods assess for hemolysis. Confirm with instrument and retest K+ if not consistent with clinical signs and symptoms. Current Interpretive Data was last revised on 2024. Cl, POC 101 97 - 110 mmol/L [facility] Ionized Ca, POC 4.68 4.50 - 5.10 mg/dL [facility] Glucose, POC 261(H) 70 - 199 mg/dL [facility] Lactate POC 2.2(H) 0.7 - 2.0 mmol/L [facility] SO2 (sameer) arterial 100(H) 90 - 95 % [facility] Base excess, POC -0.5 mmol/L [facility] HCO3, Art POC 24 20 - 30 mmol/L [facility] Hct, POC 29.0(L) 41.4 - 51.6 % [facility] Total Hb, POC 9.8(L) 13.8 - 17.2 g/dL [facility] Blood 05/21/2025 12:4 8 AM CDT 05/21/2025 12:48 AM CDT Zev Cowart MD PhD LAB POCT ORDERABLES - D EVICE Final Result Performing Organization Address [facility] Co de Phone Number [facility] [employer] [place] [address] * (ABNORMAL) POCT heparin/ACT CPB (05/21/2025 12:44 AM CDT) Pathologist [facility] Heparin POC 4.1 units/mL ACT, CPB 529(H) 112 - 174 sec [facility] Blood 05/21/2025 12:4 4 AM CDT 05/21/2025 12:44 AM CDT Zev Cowart MD PhD LAB POCT ORDERABLES - D EVICE Final Result Performing Organization Address [facility] Co de Phone Number [facility] [employer] [place] [address] * (ABNORMAL) POC Blood Gas and Chemistries, Arterial - (05/21/2025 12:31 AM CDT) [facility] Signature pH, Art POC 7.42 7.35 - 7.45 pCO2, Art POC 39 35 - 45 mmHg [facility] pO2, Art POC 180(H) 83 - 108 mmHg [facility] Na, POC 140 135 - 145 mmol/L [facility] K POC 3.7 3.3 - 4.9 mmol/L [facility] Comment: Interpretive Data Not all point of care methods assess for hemolysis. Confirm with instrument and retest K+ if not consistent with clinical signs and symptoms. Current Interpretive Data was last revised on 2024. Cl, POC 99 97 - 110 mmol/L [facility] Ionized Ca, POC 4.91 4.50 - 5.10 mg/dL [facility] Glucose, POC 264(H) 70 - 199 mg/dL [facility] Lactate POC 1.9 0.7 - 2.0 mmol/L [facility] SO2 (sameer) arterial 100(H) 90 - 95 % [facility] Base excess, POC 0.8 mmol/L [facility] HCO3, Art POC 25 20 - 30 mmol/L [facility] Hct, POC 36.0(L) 41.4 - 51.6 % [facility] Total Hb, POC 11.9(L) 13.8 - 17.2 g/dL [facility] Blood 05/21/2025 12:3 1 AM CDT 05/21/2025 12:31 AM CDT us Zev Cowart MD PhD LAB POCT ORDERABLES - D EVICE Final Result Performing Organization Address [facility] Co de Phone Number [facility] Department of [employer] [place] [address] * (ABNORMAL) POCT heparin/ACT CPB (05/21/2025 12:30 AM CDT) Heparin POC 4.1 units/mL ACT, CPB 450(H) 112 - 174 sec [facility] Blood 05/21/2025 12:3 0 AM CDT 05/21/2025 12:30 AM CDT Zev Cowart MD PhD LAB POCT ORDERABLES - D EVICE Final Result Performing Organization Address City/[facility] Co de Phone Number [facility] [employer] [place] [address] * POCT heparin dose response, CPB (05/20/2025 11:48 PM CDT) Baseline ACT POC 146 112 - 174 sec Heparin dose response slope POC 103 60 - 195 [facility] Projected Heparin Concentration POC 1.0 units/mL [facility] Blood 05/20/2025 11:4 8 PM CDT 05/20/2025 11:48 PM CDT us Zev Cowart MD PhD LAB POCT ORDERABLES - D EVICE Final Result [facility] [place] [address] * (ABNORMAL) POC Blood Gas and Chemistries, Arterial - (05/20/2025 11:46 PM CDT) pH, Art POC 7.50(H) 7.35 - 7.45 pCO2, Art POC 35 35 - 45 mmHg [facility] pO2, Art POC 292(H) 83 - 108 mmHg [facility] Na, POC 137 135 - 145 mmol/L [facility] K POC 4.0 3.3 - 4.9 mmol/L [facility] Comment: Interpretive Data Not all point of care methods assess for hemolysis. Confirm with instrument and retest K+ if not consistent with clinical signs and symptoms. Current Interpretive Data was last revised on 2024. Cl, POC 103 97 - 110 mmol/L [facility] Ionized Ca, POC 4.81 4.50 - 5.10 mg/dL [facility] Glucose, POC 173 70 - 199 mg/dL [facility] Lactate POC 1.3 0.7 - 2.0 mmol/L [facility] SO2 (sameer) arterial 100(H) 90 - 95 % [facility] Base excess, POC 4.1 mmol/L [facility] HCO3, Art POC 27 20 - 30 mmol/L [facility] Hct, POC 36.0(L) 41.4 - 51.6 % [facility] Total Hb, POC 12.0(L) 13.8 - 17.2 g/dL [facility] Blood 05/20/2025 11:4 6 PM CDT 05/20/2025 11:46 PM CDT us Zev Cowart MD PhD LAB POCT ORDERABLES - D EVICE Final Result Performing Organization Address City/[facility]/ZIP Co de Phone Number [facility] Department [place] [address] * NM AN PROCEDURE PLACEHOLDER (05/20/2025 11:24 PM CDT) [...] code: DIANNE placement and diagnostic exam, non-congenital (12612) ICD code(s) for medical necessity: Z94.1 - [...] inferior: hypokinetic 16- Apical septal: hypokinetic 17- [place]: hypokinetic Valves: Aortic Valve: Annulus: normal Leaflet [...] the written comments contained within the report. us Gosia Wilkins MD PhD ANESTHESIA ORDERABLES Edited Result - Final * NM AN ELECTIVE ENDOTRACHEAL AIRWAY, NM AN PROCEDURE PLACEHOLDER (05/20/2025 11:19 PM CDT) [...] (05/20/2025 9:15 PM CDT) BSA 2.04 m2 [facility] PROSOLV_CARDIORE [place] SCIMAGE Narrative [facility] PROSOLV_CARDIOREPORT_CONS SCIMAGE - 05/20/2025 9:15 PM CDT Procedure Auto Finalized by Rule: BW CV DIANNE DURING CASE OR Please see the Anesthesiologist's Procedure Note for the results. us Gosia Wilkins MD PhD CV ECHO PROCEDURES Fi nal Result [facility] PROSOLV_CARDIOREPORT_CONS SCIMAGE * Prepare plasma: 4 Units (05/20/2025 9:12 PM CDT) Pathologist [facility] Product code [id number] Unit Number [id number] 8-G [facility] Product Blood Type OPOS [facility] Dispense Status RETURNED [facility] Product code [id number] [facility] Unit Number [id number] 3-Q [facility] Product Blood Type OPOS [facility] Dispense Status RETURNED [facility] Product code [id number] [facility] Unit Number [id number] 5-N [facility] Product Blood Type OPOS [facility] Dispense Status RETURNED [facility] Product code [id number] [facility] Unit Number [id number] 1-Y [facility] Product Blood Type OPOS [facility] Dispense Status RETURNED [facility] Blood Venous blood specimen / Unknown 05/20/2025 9:12 PM CDT 05/20/2025 9:15 PM CDT Narrative [facility] - 05/21/2025 6:22 AM CDT Date required:-[id number] FFP # of Units:-4-Units Reasons:-Immediate need for surgical intervention us Gosia Wilkins MD PhD BLOOD BANK PRODUCT OR DERABLES Final Result [facility] [place] [address] * Prepare RBC: 10 Units (05/20/2025 9:12 PM CDT) Product code [id number] [facility] Unit Number [id number] 5-C [facility] Product Blood Type OPOS [facility] Dispense Status RETURNED [facility] Product code [id number] Unit Number [id number] 4-A [facility] Product Blood Type OPOS [facility] Dispense Status RETURNED [facility] Blood 05/20/2025 9:12 PM CDT 05/20/2025 9:15 PM CDT Narrative [facility] - 05/21/2025 6:22 AM CDT Are special requirements needed? (All products are leukoreduced and CMV- safe)- >No Date required:-[id number] LRRBC # of [id number] Reasons:-Intra-op transfusion} us Gosia Wilkins MD PhD BLOOD BANK PRODUCT OR DERABLES Final Result Performing Organization Address City/[facility]/ZIP Co de Phone Number [facility] Department of [employer] [place] [address] * Oxyhemoglobin, pulmonary artery (05/20/2025 4:24 PM CDT) Pathologist [facility] Oxyhemoglobin, PA 54.9 % Comment: Interpretive Data No reference range established. Current interpretive data was last revised 2020. Blood 05/20/2025 4:24 PM CDT 05/20/2025 4:33 PM CDT us Bar Gamble MD LAB BLOOD ORDERABLES Final R esult Performing Organization Address City/[facility]/ZIP Co de Phone Number [facility] Department of [employer] [place] [address] * (ABNORMAL) Hemoglobin total, pulmonary artery (05/20/2025 4:24 PM CDT) Pathologist [facility] Hemoglobin total, PA 18.5(H) 13.0 - 17.5 g/dL Blood 05/20/2025 4:24 PM CDT 05/20/2025 4:33 PM CDT Bar Gamble MD LAB BLOOD ORDERABLES Final R esult Performing Organization Address [facility] Co de Phone Number [facility] [employer] [place] [address] * (ABNORMAL) eGFR (05/20/2025 4:24 PM CDT) [...] ORDERABLES Final R esult Performing Organization Address City/[facility]/ZIP Co de Phone Number [facility] [employer] [place] [address] * Lactate, whole blood (05/20/2025 4:24 PM CDT) Lactate, bld 1.0 0.7 - 2.0 mmol/L Blood 05/20/2025 4:24 PM CDT 05/20/2025 4:33 PM CDT Bar Gamble MD LAB BLOOD ORDERABLES Final R esult Performing Organization Address [facility] Co de Phone Number [facility] [place] [address] * Magnesium (05/20/2025 4:24 PM CDT) Pathologist [facility] Magnesium 2.5 1.4 - 2.5 mg/dL Blood 05/20/2025 4:24 PM CDT 05/20/2025 4:40 PM CDT Bar Gamble MD LAB BLOOD ORDERABLES Final R esult Performing Organization Address [facility] de Phone Number [facility] [employer] [place] [address] * (ABNORMAL) Basic metabolic panel (05/20/2025 4:24 PM CDT) Pathologist [facility] Sodium 140 135 - 145 mmol/L Potassium, pl 3.9 3.3 - 4.9 mmol/L [facility] Chloride 98 97 - 110 mmol/L [facility] CO2 29 22 - 32 mmol/L [facility] Anion gap 13 2 - 15 mmol/L [facility] BUN 42(H) 6 - 25 mg/dL [facility] Creatinine 1.41(H) 0.80 - 1.30 mg/dL [facility] Glucose 114 70 - 199 mg/dL [facility] Comment: Interpretive Data Fasting glucose >/= [...] 2022. Calcium 9.8 8.5 - 10.3 mg/dL [facility] Blood 05/20/2025 4:24 PM CDT 05/20/2025 4:40 PM CDT Bar Gamble MD LAB BLOOD ORDERABLES Final R esult [facility] Department [place] [address] * Respiratory pathogen panel Nasopharyngeal (05/20/2025 8:15 AM CDT) Pathologist [facility] Influenza A RNA Not Detected Not Detected Influenza B RNA Not Detected Not Detected [facility] RSV RNA Not Detected Not Detected [facility] COVID-19 RNA Not Detected Not Detected [facility] Coronavirus 229E RNA Not Detected Not Detected [facility] Coronavirus HKU1 RNA Not Detected Not Detected [facility] Coronavirus NL63 RNA Not Detected Not Detected [facility] Coronavirus OC43 RNA Not Detected Not Detected [facility] Adenovirus DNA Not Detected Not Detected [facility] Metapneumovirus RNA Not Detected Not Detected [facility] Rhinovirus/Enterov irus RNA Not Detected Not Detected [facility] Parainfluenza 1 RNA Not Detected Not Detected [facility] Parainfluenza 2 RNA Not Detected Not Detected [facility] Parainfluenza 3 RNA Not Detected Not Detected [facility] Parainfluenza 4 RNA Not Detected Not Detected [facility] B. pertussis DNA Not Detected Not Detected [facility] B. parapertussis DNA Not Detected Not Detected [facility] C. pneumoniae DNA Not Detected Not Detected [facility] M. pneumoniae DNA Not Detected Not Detected [facility] Nasopharyngeal 05/20/2025 8: 15 AM CDT 05/20/2025 8:30 AM CDT Narrative [facility] - 05/20/2025 9:25 AM CDT Is the Patient experiencing symptoms consistent with COVID?->Unknown Surveillance testing for transplant patient?->Yes Interpretive Data The [employer] FilmArray Respiratory Panel (RP2.1) assay is a [...] assay has FDA clearance for testing of NURSE FIRST AID swabs. The performance of additional specimen types has been assessed by the performing laboratory. The performance characteristics of this assay have been determined by [facility] Molecular Infectious Disease Laboratory. Current interpretive data was last revised on 22. Addy Tapia MD LAB MICROBIOLOGY - GENER AL ORDERABLES Final Result Performing Organization Address [facility] [place] [address] * Oxyhemoglobin, pulmonary artery (05/20/2025 5:07 AM CDT) Oxyhemoglobin, PA 51.0 % Comment: Interpretive Data No reference range established. Current interpretive data was last revised 2020. Blood 05/20/2025 5:07 AM CDT 05/20/2025 5:23 AM CDT us Bar Gamble MD LAB BLOOD ORDERABLES Final R esult Performing Organization Address [facility] [place] [address] * (ABNORMAL) Hemoglobin total, pulmonary artery (05/20/2025 5:07 AM CDT) Hemoglobin total, PA 11.3(L) 13.0 - 17.5 g/dL Blood 05/20/2025 5:07 AM CDT 05/20/2025 5:23 AM CDT us Bar Gamble MD LAB BLOOD ORDERABLES Final R esult Performing Organization Address [facility] Co de Phone Number [facility] [place] [address] * (ABNORMAL) eGFR (05/20/2025 5:07 AM CDT) [...] Performing Organization Address [facility] Co de Phone Number [facility] Department [place] [address] * Lactate, whole blood (05/20/2025 5:07 AM CDT) Pathologist [facility] Lactate, bld 0.7 0.7 - 2.0 mmol/L Blood 05/20/2025 5:07 AM CDT 05/20/2025 5:23 AM CDT us Zev Cowart MD PhD LAB BLOOD ORDERABLES Fi nal Result Performing Organization Address [facility] Co de Phone Number [facility] [place] [address] * (ABNORMAL) CBC without differential (05/20/2025 5:07 AM CDT) WBC 7.01 3.80 - 9.90 K/cumm Hgb 10.6(L) 13.0 - 17.5 g/dL [facility] Hct 31.8(L) 38.9 - 50.3 % [facility] Plt 197 150 - 400 K/cumm [facility] MPV 11.8 9.1 - 12.3 fL [facility] RBC 3.85(L) 4.30 - 5.80 M/cumm [facility] MCV 82.6 81.3 - 96.4 fL [facility] MCH 27.5 27.1 - 33.3 pg [facility] MCHC 33.3 32.3 - 35.7 g/dL [facility] RDW CV 15.1(H) 11.1 - 14.9 % [facility] RDW SD 45.8 35.7 - 48.1 fL [facility] NRBC abs 0.00 0.00 - 0.01 K/cumm [facility] [facility] Blood 05/20/2025 5:07 AM CDT 05/20/2025 5:29 AM CDT Bar Gamble MD LAB BLOOD ORDERABLES Final R esult Performing Organization Address [facility] Co de Phone Number [facility] Department [place] [employer] [place] [address] * Magnesium (05/20/2025 5:07 AM CDT) Pathologist [facility] Magnesium 2.4 1.4 - 2.5 mg/dL Blood 05/20/2025 5:07 AM CDT 05/20/2025 5:29 AM CDT Bar Gamble MD LAB BLOOD ORDERABLES Final R esult Performing Organization Address [facility] de Phone Number [facility] Department [place] [employer] [place] [address] * (ABNORMAL) Hepatic function panel (05/20/2025 5:07 AM CDT) Bilirubin, total 0.7 0.1 - 1.2 mg/dL Bilirubin, direct 0.4(H) 0.1 - 0.3 mg/dL [facility] Protein, pl 6.3(L) 6.5 - 8.5 g/dL [facility] Albumin 3.8 3.5 - 5.0 g/dL [facility] Alk phos 263(H) 40 - 130 Units/L [facility] ALT 18 7 - 55 Units/L [facility] AST 19 10 - 50 Units/L [facility] Blood 05/20/2025 5:07 AM CDT 05/20/2025 5:29 AM CDT us Bar Gamble MD LAB BLOOD ORDERABLES Final R esult Performing Organization Address City/[facility]/ZIP Co de Phone Number [facility] Department [place] [address] * (ABNORMAL) Basic metabolic panel (05/20/2025 5:07 AM CDT) Sodium 140 135 - 145 mmol/L Potassium, pl 4.0 3.3 - 4.9 mmol/L [facility] Chloride 99 97 - 110 mmol/L [facility] CO2 29 22 - 32 mmol/L [facility] Anion gap 12 2 - 15 mmol/L [facility] BUN 41(H) 6 - 25 mg/dL [facility] Creatinine 1.50(H) 0.80 - 1.30 mg/dL [facility] Glucose 113 70 - 199 mg/dL [facility] Comment: Interpretive Data Fasting glucose >/= [...] 2022. Calcium 9.4 8.5 - 10.3 mg/dL [facility] Blood 05/20/2025 5:07 AM CDT 05/20/2025 5:29 AM CDT Bar Gamble MD LAB BLOOD ORDERABLES Final R esult Performing Organization Address City/[facility] Co de Phone Number DULCE MARIA [facility] Department [place] [address] * Antibody identification (05/20/2025 3:27 AM CDT) Antibody ID 1 Anti-CD38 Comment:Panreactive -CD38 on reagent RBCs reacting with anti-CD38 therapy. DTT treatment removes cell surface CD38 and allows detection of common clinically significant antibodies except those against Dilma antigens. TRANSFUSION 2015;55;[id number] Blood 05/20/2025 3:27 AM CDT 05/20/2025 3:27 AM CDT us Zev Cowart MD PhD LAB BLOOD BANK TEST ORD ERABLES Final Result Performing Organization Address [facility] Co de Phone Number DULCE MARIA [facility] Department [place] [address] * XR Chest 1 View (05/20/2025 3:25 AM CDT) Anatomical Region Laterality Modality Body, Chest N/A Digital Radiogra phy 05/20/2025 9:36 AM CDT Impressions 05/20/2025 9:36 AM CDT 1. 05/19/2025, 12:17 PM: Comparison is made to prior radiograph from the same date. Peripherally inserted central venous catheter tip overlies the superior vena cava. The [place]ne catheter is in the right lower lobe pulmonary artery. There are small bilateral pleural effusions with bibasilar atelectasis. No pneumonic consolidation or pneumothorax. Stable heart size. 2. 05/19/2025, 3:03 PM: Comparison is made to prior radiograph from the same date. There is no significant interval change. 3. 05/20/2025, 1:40 AM: Comparison is made to 05/19/2025. The [place]ne catheter has been retracted and now overlies [...] tip overlies the superior vena cava. The [place] catheter is in the right lower lobe pulmonary artery. There are small bilateral pleural effusions with bibasilar atelectasis. No pneumonic consolidation or pneumothorax. Stable heart size. 2. 05/19/2025, 3:03 PM: Comparison is made to prior radiograph from the same date. There is no significant interval change. 3. 05/20/2025, 1:40 AM: Comparison is made to 05/19/2025. The [place]ne catheter has been retracted and now overlies [...] ur Straw Yellow Clarity, ur Clear Clear [facility] Specific gravity, ur 1.009 1.003 - 1.030 [facility] pH, urine 6.5 [facility] Comment: Interpretive Data U rine pH is affected by diet, medications, systemic acid-base disturbances, and renal tubular function. pH may affect urinary stone formation. For example, urine pH below 6.0 may help reduce the tendency for calcium phosphate stones and pH greater than 6.0 may reduce the tendency for uric acid stone formation. Source: Jackson Decision Pace Current Interpretive Data was last revised on 2017 Protein, ur ql Negative Negative [facility] Glucose, ur ql Negative Negative [facility] Ketones, ur Negative Negative [facility] Bilirubin, ur Negative Negative [facility] Blood, ur Negative Negative [facility] Urobilinogen, ur <2.0 <2.0 mg/dL [facility] Nitrite, ur Negative Negative [facility] Leukocyte esterase, ur Negative Negative [facility] UA reflex comment Reflex conditions for microscopic UA and culture not met. [facility] Urine 05/20/2025 2:28 AM CDT 05/20/2025 2:40 AM CDT eZv Cowart MD PhD LAB MICROBIOLOGY - GENE RAL ORDERABLES Final Result [facility] [place] [address] * Collection Task for HLA Antibody Screen (05/20/2025 2:02 AM CDT) Pathologist [facility] HLA Antibody Screen by [facility] Received Blood 05/20/2025 2:02 AM CDT 05/21/2025 7:22 AM CDT Zev Cowart MD PhD LAB BLOOD ORDERABLES Fi nal Result Performing Organization Address City/[facility]/ZIP Co de Phone Number [facility] Department [place] [address] * Hepatitis C (HCV) RNA PCR, quantitative Blood (05/20/2025 2:02 AM CDT) Pathologist [facility] HCV RNA result Not Detected [facility] Comment: The quantifiable range of this assay is 15 IU/mL to 100,000,000 IU/mL (1.18 log IU/mL to 8.00 log IU/mL). Testing was performed by the CARLOS 6800 HCV Test ([employer] Testing performed at [facility] Current Interpretive Data was last revised on 2021 Blood 05/20/2025 2:02 AM CDT 05/20/2025 2:23 AM CDT Zev Cowart MD PhD LAB MICROBIOLOGY - GENE RAL ORDERABLES Final Result Performing Organization Address City/[facility]/ZIP Co de Phone Number DULCE MARIA [facility] [place] [address] [facility] * HLA Crossmatch Report (05/20/2025 2:01 AM CDT) Zev Cowart MD PhD LAB BLOOD ORDERABLES Fi nal Result * HLA Crossmatch, ALLO (05/20/2025 2:01 AM CDT) Blood 05/20/2025 2:01 AM CDT 05/21/2025 6:44 AM CDT Narrative [facility] - 05/21/2025 6:44 AM CDT Zev Cowart MD PhD LAB BLOOD ORDERABLES Fi nal Result Performing Organization Address [facility] Co de Phone Number [facility] * HLA Antibody Screen by PRA or SAB per Schedule (Class I and Class II) (05/20/2025 2:01 AM CDT) Blood 05/20/2025 2:01 AM CDT Narrative [facility] - OBSTETRICS GYNECOLOGY PHYSICIAN Sample received in lab. Single Antigen Antibody Screen ordered. Zev Cowart MD PhD LAB BLOOD ORDERABLES Fi nal Result Performing Organization Address City/[facility] Co de Phone Number [facility] * (ABNORMAL) [...] PhD LAB BLOOD ORDERABLES Fi nal Result [facility] Department [place] [address] * (ABNORMAL) Differential, auto (05/20/2025 2:01 AM CDT) Neutrophil abs 6.15 1.50 - 6.50 K/cumm Imm gran abs 0.02 0.00 - 0.10 K/cumm [facility] Lymphocyte abs 0.63(L) 0.80 - 3.30 K/cumm [facility] Monocyte abs 0.62 0.20 - 0.80 K/cumm [facility] Eosinophil abs 0.25 0.00 - 0.50 K/cumm [facility] Basophil abs 0.03 0.00 - 0.10 K/cumm [facility] Neutrophil pct 79.8 % [facility] Comment: Interpretive Data Percent cell count reference ranges are not reported, since discordance with absolute values may lead to misinterpretation of CBC data. Current Interpretive Data was last revised on 2018. Imm gran pct 0.3 % [facility] Comment: Interpretive Data Percent cell count reference ranges are not reported, since discordance with absolute values may lead to misinterpretation of CBC data. Current Interpretive Data was last revised on 2018. Lymphocyte pct 8.2 % [facility] Comment: Interpretive Data Percent cell [...] on 2018. Eosinophil pct 3.2 % [facility] Comment: Interpretive Data Percent cell count reference ranges are not reported, since discordance with absolute values may lead to misinterpretation of CBC data. Current Interpretive Data was last revised on 2018. Basophil pct 0.4 % [facility] Comment: Interpretive Data Percent cell count reference ranges are not reported, since discordance with absolute values may lead to misinterpretation of CBC data. Current Interpretive Data was last revised on 2018. Blood 05/20/2025 2:01 AM CDT 05/20/2025 2:11 AM CDT Zev Cowart MD PhD LAB BLOOD ORDERABLES Fi nal Result Performing Organization Address City/[facility]/ZIP Co de Phone Number [facility] [employer] [place] [address] * HIV 1/2 Antibody plus p24 Antigen [...] MICROBIOLOGY - GENE RAL ORDERABLES Final Result [facility] Department [place] [employer] [place] [address] * (ABNORMAL) CMV, IgG Blood (05/20/2025 2:01 AM CDT) CMV IgG Positive( A) Negative Comment: Interpretive [...] Cowart MD PhD LAB MICROBIOLOGY - GENE [facility] ORDERABLES Final Result DULCE MARIA [facility] [place] [address] * HLA Antibody Screen - SAB (Class I and Class II) (05/20/2025 2:01 AM CDT) Class I Treatment EDTA [facility] Class [...] a method developed and validated by the [facility] HLA laboratory based on an FDA-approved IVD kit (LABScreen Single-Antigen, [employer], [place], [place]). All patient serum samples are pretreated with EDTA before the screen to prevent complement interference. Additional serum treatments, such as adsorption and DTT treatment, may be performed as indicated. Interpretive comments: Low risk: MFI [id number]. Moderate risk: MFI 1217-6211. Increased risk: MFI >/= 5000. The presence [...] antigens to avoid. Testing performed at the [facility], [address] [place] [address], 5th floor, [place], [address]. [facility] # [id number]. Myrna Pendleton, Ph.D., Phlebotomist Lab Assistant, HLA Laboratory Zach Bermudez M.D., Ph.D., Field Service Engineer, HLA Laboratory Dona Cota, Ph.D., CLIA Field Service Engineer, [facility] Clinical Laboratories Current methodology and interpretive comments last revised on 12/16/2022. us Zev Cowart MD PhD LAB BLOOD ORDERABLES Fi nal Result [facility] * (ABNORMAL) CBC with auto differential (05/20/2025 2:01 AM CDT) Pathologist [facility] WBC 7.70 3.80 - 9.90 K/cumm Hgb 10.1(L) 13.0 - 17.5 g/dL [facility] Hct 30.8(L) 38.9 - 50.3 % [facility] Plt 187 150 - 400 K/cumm [facility] MPV 11.3 9.1 - 12.3 fL [facility] RBC 3.69(L) 4.30 - 5.80 M/cumm [facility] MCV 83.5 81.3 - 96.4 fL [facility] MCH 27.4 27.1 - 33.3 pg [facility] MCHC 32.8 32.3 - 35.7 g/dL [facility] RDW CV 15.1(H) 11.1 - 14.9 % [facility] RDW SD 46.3 35.7 - 48.1 fL [facility] NRBC abs 0.00 0.00 - 0.01 K/cumm [facility] Blood 05/20/2025 2:01 AM CDT 05/20/2025 2:11 AM CDT Zev Cowart MD PhD LAB BLOOD ORDERABLES Fi nal Result Performing Organization Address [facility] Co de Phone Number [facility] [place] [address] * Hepatitis C antibody Blood (05/20/2025 2:01 AM CDT) [facility] Hep C Ab Nonreactive Nonreactive Comment:Antibodies to HCV no t detected. Does NOT exclude the possibility of recent exposure to HCV. Current interpretive data was last revised on 22 Blood 05/20/2025 2:01 AM CDT 05/20/2025 2:17 AM CDT Zev Cowart MD PhD LAB MICROBIOLOGY - GENE RAL ORDERABLES Final Result Performing Organization Address City/[facility] Co de Phone Number [facility] Department [place] [employer] [place] [address] * (ABNORMAL) Priscilla-Lewis virus (EBV) antibody panel Blood (05/20/2025 2:01 AM CDT) [facility] EBV nuclear Ab Positive(A) Negative Comment:Indicates the presen ce of detectable IgG antibody to EBV Nuclear Antigen. EBV VCA IgG Positive(A) Negative [facility] Comment:Indicates the presen ce of antibody; 90% of the adult population will have been infected with EBV sometime in the past. EBV VCA IgM Negative Negative [facility] Comment:No detectable IgM an tibody to EBV-VCA. A negative result indicates no current infection with EBV. If clinical suspicion of acute EBV infection is present, testing should be repeated after one week. EBV interp Past Infection [facility] Blood 05/20/2025 2:01 AM CDT 05/20/2025 2:17 AM CDT Zev Cowart MD PhD LAB MICROBIOLOGY - GENE RAL ORDERABLES Final Result Performing Organization Address City/[facility] Co de Phone Number [facility] Department [place] [address] * Hepatitis B core antibody, IgM Blood (05/20/2025 2:01 AM CDT) Hep B core IgM Nonreactive Nonreactive Blood 05/20/2025 2:01 AM CDT 05/20/2025 2:17 AM CDT Zev Cowart MD PhD LAB MICROBIOLOGY - GENE RAL ORDERABLES Final Result Performing Organization Address City/[facility]/ZIP Co de Phone Number [facility] Department [place] [address] * Hepatitis B core antibody, total Blood (05/20/2025 2:01 AM CDT) Hep B core IgG/IgM Nonreactive Nonreactive Blood 05/20/2025 2:01 AM CDT 05/20/2025 2:17 AM CDT Zev Cowart MD PhD LAB MICROBIOLOGY - GENE RAL ORDERABLES Final Result Performing Organization Address City/[facility] Co de Phone Number [facility] [place] [address] * Toxoplasma gondii antibody, IgG Blood (05/20/2025 2:01 AM CDT) [facility] Toxoplasma IgG Negative Negative Comment: Interpretive Data [...] Performing Organization Address [facility] Co de Phone Number [facility] [place] [address] * Hepatitis B surface antibody (immune status) Blood (05/20/2025 2:01 AM CDT) [facility] HBsAb (immune status) Nonreactive Comment:This result is consi stent with a lack of immunity to Hepatitis B Virus when used in the setting of routine screening. Current interpretative data was last revised on 22 Blood 05/20/2025 2:01 AM CDT 05/20/2025 2:17 AM CDT us Zev Cowart MD PhD LAB MICROBIOLOGY - GENE RAL ORDERABLES Final Result Performing Organization Address City/[facility]/ZIP Co de Phone Number DULCE MARIA [facility] [place] [address] * Hepatitis B Surface Antigen Blood (05/20/2025 2:01 AM CDT) [facility] HepBsAg Nonreactive Nonreactive Blood 05/20/2025 2:01 AM CDT 05/20/2025 2:17 AM CDT us Zev Cowart MD PhD LAB MICROBIOLOGY - GENE RAL ORDERABLES Final Result Performing Organization Address [facility] de Phone Number [facility] [place] [employer] [place] [address] * (ABNORMAL) aPTT (05/20/2025 2:01 AM CDT) [...] ORDERABLES Fi nal Result Performing Organization Address [facility] [place] [address] * (ABNORMAL) Protime-INR (05/20/2025 2:01 AM CDT) PT 17.4(H) 9.7 - 13.0 sec INR 1.60(H) 0.90 - 1.20 [facility] Comment: Interpretive data Oral anticoagulant therapeutic [...] Performing Organization Address [facility] Co de Phone Number [facility] [place] [employer] [place] [address] * (ABNORMAL) Type and screen (05/20/2025 2:01 AM CDT) Poppy, indirect Positive(A) ABO Rh O Positive [facility] Blood 05/20/2025 2:01 AM CDT 05/20/2025 2:24 AM CDT Narrative [facility] - 05/20/2025 3:27 AM CDT Has the patient had Daratumumab or Isatuximab in the past 6 months?->Unknown Zev Cowart MD PhD LAB BLOOD BANK TEST ORD ERABLES Final Result Performing Organization Address [facility]/ZIP Co de Phone Number [facility] [place] [address] * (ABNORMAL) Hemoglobin A1c (05/20/2025 2:01 AM CDT) Pathologist [facility] Hgb A1C 6.8(H) 4.0 - 5.6 % Estimated Average Glucose 148 mg/dL [facility] Comment: The ADA recommends reporting an estimated Average Glucose (eAG) with all Hemoglobin A1c results using the equation derived from a study of 507 normal and diabetic adults. Minority populations were underrepresented and children were not included. (Diabetes Care 2020; 43(S1): S66-S76). The eAG is not equivalent to a fasting glucose. Blood 05/20/2025 2:01 AM CDT 05/20/2025 2:11 AM CDT Narrative [facility] - 05/20/2025 4:37 AM CDT Indication for repeat testing:->Health monitoring Zev Cowart MD PhD LAB BLOOD ORDERABLES Fi nal Result Performing Organization Address City/[facility]/ZIP Co de Phone Number [facility] [place] [address] * (ABNORMAL) Comprehensive metabolic panel (05/20/2025 2:01 AM CDT) Pathologist [facility] Sodium 138 135 - 145 mmol/L Potassium, pl 3.5 3.3 - 4.9 mmol/L [facility] Chloride 97 97 - 110 mmol/L [facility] CO2 29 22 - 32 mmol/L [facility] Anion gap 12 2 - 15 mmol/L [facility] BUN 43(H) 6 - 25 mg/dL [facility] Creatinine 1.52(H) 0.80 - 1.30 mg/dL [facility] Glucose 111 70 - 199 mg/dL [facility] Comment: Interpretive Data Fasting glucose >/= [...] 2022. Calcium 9.3 8.5 - 10.3 mg/dL [facility] Bilirubin, total 0.7 0.1 - 1.2 mg/dL [facility] Protein, pl 6.3(L) 6.5 - 8.5 g/dL [facility] Albumin 3.9 3.5 - 5.0 g/dL [facility] Alk phos 265(H) 40 - 130 Units/L [facility] ALT 18 7 - 55 Units/L [facility] AST 18 10 - 50 Units/L [facility] Blood 05/20/2025 2:01 AM CDT 05/20/2025 2:20 AM CDT us Zev Cowart MD PhD LAB BLOOD ORDERABLES Fi nal Result [facility] [place] [address] * XR Abdomen 1 View AP (05/20/2025 1:46 AM CDT) Anatomical Region Laterality Modality Body, Abdomen N/A Digital Radiogra phy 05/20/2025 11:5 7 AM CDT Impressions 05/20/2025 2:[address] 04/08/2025. Partially imaged [place]ne catheter. Right upper quadrant cholecystectomy clips. Normal [...] transplant IMPRESSION: Comparison CT 04/08/2025. Partially imaged [place]-Jayne catheter. Right upper quadrant cholecystectomy clips. Normal [...] tip overlies the superior vena cava. The [place]ne catheter is in the right lower lobe pulmonary artery. There are small bilateral pleural effusions with bibasilar atelectasis. No pneumonic consolidation or pneumothorax. Stable heart size. 2. 05/19/2025, 3:03 PM: Comparison is made to prior radiograph from the same date. There is no significant interval change. 3. 05/20/2025, 1:40 AM: Comparison is made to 05/19/2025. The [place]ne catheter has been retracted and now overlies [...] tip overlies the superior vena cava. The [place]ne catheter is in the right lower lobe pulmonary artery. There are small bilateral pleural effusions with bibasilar atelectasis. No pneumonic consolidation or pneumothorax. Stable heart size. 2. 05/19/2025, 3:03 PM: Comparison is made to prior radiograph from the same date. There is no significant interval change. 3. 05/20/2025, 1:40 AM: Comparison is made to 05/19/2025. The [place]ne catheter has been retracted and now overlies the main pulmonary artery. 4. 05/20/2025, 3:22 AM:: Comparison is made to the prior examination from the same date. No significant interval change. Electronically signed by: Jamie Lugo M.D. Bar Gamble MD IMG XR PROCEDURES Final Resu lt * Prepare platelets: 2 Units (05/20/2025 1:23 AM CDT) Product code [id number] Unit Number [id number] [facility] Product Blood Type OPOS [facility] Dispense Status PRESUMED TRANSFUSED [facility] Blood Venous blood specimen / Unknown 05/20/2025 1:23 AM CDT 05/20/2025 1:33 AM CDT Narrative [facility] - 05/21/2025 4:01 PM CDT Other indication->for invasive procedure Are special requirements needed? (all products are leukoreduced)->No Date required:-20250520 PLT # of Units:-2-Units Reasons:-Other (Specify)} Zev Cowart MD PhD BLOOD BANK PRODUCT ORDE CATIA Final Result [facility] Department [place] [address] * Prepare RBC: 8 Units (05/20/2025 1:23 AM CDT) Product code [id number] Unit Number [id number] 0-C [facility] Product Blood Type OPOS [facility] Dispense Status RETURNED [facility] Product code L3239P08 [facility] Unit Number [id number] 0-F [facility] Product Blood Type OPOS [facility] Dispense Status RETURNED [facility] Product code I9042S25 [facility] Unit Number [id number] 5-8 [facility] Product Blood Type OPOS [facility] Dispense Status RETURNED [facility] Product code U9232M40 [facility] Unit Number [id number] 4-Z [facility] Product Blood Type OPOS [facility] Dispense Status RETURNED [facility] Product code [id number] [facility] Unit Number [id number] 7-7 [facility] Product Blood Type OPOS [facility] Dispense Status RETURNED [facility] Product code C7948O26 [facility] Unit Number [id number] 4-9 [facility] Product Blood Type ONEG [facility] Dispense Status RETURNED [facility] Product code [id number] [facility] Unit Number [id number] 1-G [facility] Product Blood Type OPOS [facility] Dispense Status RETURNED [facility] Product code I7791B25 [facility] Unit Number [id number] 9-6 [facility] Product Blood Type OPOS [facility] Dispense Status [facility] Blood 05/20/2025 1:23 AM CDT 05/20/2025 1:33 AM CDT Narrative [facility] - 05/21/2025 6:22 AM CDT Are special requirements needed? (All products are leukoreduced and CMV- safe)- >No Date required:-[id number] LRRBC # of [id number] Reasons:-Intra-op transfusion} us Zev Cowart MD PhD BLOOD BANK PRODUCT ORDE CATIA Final Result Performing Organization Address [facility] Co de Phone Number [facility] [employer] [place] [address] * Potassium, whole blood (05/20/2025 12:09 AM CDT) Potassium, bld 3.7 3.3 - 4.9 mmol/L Blood 05/20/2025 12:0 9 AM CDT 05/20/2025 12:16 AM CDT us Bar Gamble MD LAB BLOOD ORDERABLES Final R esult Performing Organization Address [facility] de Phone Number [facility] Department [place] [employer] [place] [address] * Lactate, whole blood (05/20/2025 12:09 AM CDT) Lactate, bld 0.8 0.7 - 2.0 mmol/L Blood 05/20/2025 12:0 9 AM CDT 05/20/2025 12:16 AM CDT Zev Cowart MD PhD LAB BLOOD ORDERABLES Fi nal Result Performing Organization Address [facility] de Phone Number [facility] [employer] [place] [address] * (ABNORMAL) aPTT (05/19/2025 11:29 PM CDT) aPTT 74(H) 28 - 38 sec Comment: Interpretive Data Heparin therapeutic range: 66.0 - 100.0 seconds. Range based on correlation with therapeutic heparin activity range of 0.3 - 0.7 Units/mL. Current interpretive data was last revised on 2023. Blood 05/19/2025 11:2 9 PM CDT 05/20/2025 12:08 AM CDT Narrative [facility] - 05/20/2025 12:26 AM CDT STAT PTT [...] peripherally (not from CVC). us Libia Suarez NURSE FIRST A[facility] LAB BLOOD ORDERABLES Final Re sult [facility] [place] [address] * (ABNORMAL) Protime-INR (05/19/2025 11:29 PM CDT) Pathologist [facility] PT 17.3(H) 9.7 - 13.0 sec INR 1.59(H) 0.90 - 1.20 [facility] Comment: Interpretive data Oral anticoagulant therapeutic ranges: Venous thromboembolism prophylaxis or treatment: 2.0-3.0 CARDIOLOGY Standard range: 2.0-3.0 High-intensity range: 2.5-3.5 Refer to indication-specific guidelines for appropriate target ranges for prosthetic heart valve replacement. Current interpretive data was last revised on 2019. Blood 05/19/2025 11:2 9 PM CDT 05/20/2025 12:08 AM CDT Zev Cowart MD PhD LAB BLOOD ORDERABLES Fi nal Result Performing Organization Address [facility] Co de Phone Number [facility] [place] [address] * Oxyhemoglobin, pulmonary artery (05/19/2025 5:01 PM CDT) Oxyhemoglobin, PA 60.5 % Comment: Interpretive Data No reference range established. Current interpretive data was last revised 2020. Blood 05/19/2025 5:01 PM CDT 05/19/2025 5:09 PM CDT Bar Gamble MD LAB BLOOD ORDERABLES Final R esult Performing Organization Address [facility] de Phone Number [facility] [place] [address] * (ABNORMAL) Hemoglobin total, pulmonary artery (05/19/2025 5:01 PM CDT) Hemoglobin total, PA 11.3(L) 13.0 - 17.5 g/dL Blood 05/19/2025 5:01 PM CDT 05/19/2025 5:09 PM CDT Bar Gamble MD LAB BLOOD ORDERABLES Final R esult Performing Organization Address [facility] Co de Phone Number [facility] [place] [address] * (ABNORMAL) eGFR (05/19/2025 5:01 PM CDT) [...] ORDERABLES Final R esult Performing Organization Address City/[facility] Co de Phone Number [facility] Department [place] [address] * Lactate, whole blood (05/19/2025 5:01 PM CDT) Lactate, bld 0.8 0.7 - 2.0 mmol/L Blood 05/19/2025 5:01 PM CDT 05/19/2025 5:09 PM CDT Bar Gamble MD LAB BLOOD ORDERABLES Final R esult [facility] [place] [address] * Magnesium (05/19/2025 5:01 PM CDT) Magnesium 2.4 1.4 - 2.5 mg/dL Blood 05/19/2025 5:01 PM CDT 05/19/2025 5:13 PM CDT Bar Gamble MD LAB BLOOD ORDERABLES Final R esult Performing Organization Address City/[facility]/ZIP Co de Phone Number [facility] Department [place] [address] * (ABNORMAL) Basic metabolic panel (05/19/2025 5:01 PM CDT) Sodium 136 135 - 145 mmol/L Potassium, pl 3.7 3.3 - 4.9 mmol/L [facility] Chloride 96(L) 97 - 110 mmol/L [facility] CO2 29 22 - 32 mmol/L [facility] Anion gap 11 2 - 15 mmol/L [facility] BUN 42(H) 6 - 25 mg/dL [facility] Creatinine 1.48(H) 0.80 - 1.30 mg/dL [facility] Glucose 116 70 - 199 mg/dL [facility] Comment: Interpretive Data Fasting glucose >/= [...] 2022. Calcium 9.6 8.5 - 10.3 mg/dL [facility] Blood 05/19/2025 5:01 PM CDT 05/19/2025 5:13 PM CDT Bar Gamble MD LAB BLOOD ORDERABLES Final R esult Performing Organization Address [facility]/ZIP Co de Phone Number [facility] Department [place] [address] * XR Chest 1 View (05/19/2025 3:10 PM CDT) Anatomical Region Laterality Modality Body, Chest N/A Computed Radiogr aphy 05/20/2025 9:36 AM CDT Impressions 05/20/2025 9:36 AM CDT 1. 05/19/2025, 12:17 PM: Comparison is made to prior radiograph from the same date. Peripherally inserted central venous catheter tip overlies the superior vena cava. The [place] catheter is in the right lower lobe pulmonary artery. There are small bilateral pleural effusions with bibasilar atelectasis. No pneumonic consolidation or pneumothorax. Stable heart size. 2. 05/19/2025, 3:03 PM: Comparison is made to prior radiograph from the same date. There is no significant interval change. 3. 05/20/2025, 1:40 AM: Comparison is made to 05/19/2025. The [place] catheter has been retracted and now overlies the main pulmonary artery. 4. 05/20/2025, 3:22 AM:: Comparison is made to the prior examination from the same date. No significant interval change. Electronically signed by: Jamie Lugo M.D. [facility] 05/20/2025 9:36 AM CDT EXAMINATION: 1 view chest radiograph Procedure Note Jamie Lugo MD - 05/20/2025 EXAMINATION: 1 view chest radiograph IMPRESSION: 1. 05/19/2025, 12:17 PM: Comparison is made to prior radiograph from the same date. Peripherally inserted central venous catheter tip overlies the superior vena cava. The [place] catheter is in the right lower lobe pulmonary artery. There are small bilateral pleural effusions with bibasilar atelectasis. No pneumonic consolidation or pneumothorax. Stable heart size. 2. 05/19/2025, 3:03 PM: Comparison is made to prior radiograph from the same date. There is no significant interval change. 3. 05/20/2025, 1:40 AM: Comparison is made to 05/19/2025. The [place] catheter has been retracted and now overlies [...] Performing Organization Address [facility] Co de Phone Number [facility] Department [employer] [place] [address] * (ABNORMAL) Hemoglobin total, pulmonary artery (05/19/2025 12:48 PM CDT) Hemoglobin total, PA 11.1(L) 13.0 - 17.5 g/dL Blood 05/19/2025 12:4 8 PM CDT 05/19/2025 1:02 PM CDT Bar Gamble MD LAB BLOOD ORDERABLES Final R esult Performing Organization Address [facility] Co de Phone Number [facility] [place] [employer] [place] [address] * Potassium, whole blood (05/19/2025 12:48 PM CDT) Potassium, bld 4.3 3.3 - 4.9 mmol/L Blood 05/19/2025 12:4 8 PM CDT 05/19/2025 1:02 PM CDT Bar Gamble MD LAB BLOOD ORDERABLES Final R esult Performing Organization Address [facility] Co de Phone Number [facility] Department [place] [address] * Lactate, whole blood (05/19/2025 12:48 PM CDT) Lactate, bld 1.3 0.7 - 2.0 mmol/L Blood 05/19/2025 12:4 8 PM CDT 05/19/2025 1:02 PM CDT us Bar Gamble MD LAB BLOOD ORDERABLES Final R esult [facility] [place] [address] * XR Chest 1 View (05/19/2025 12:29 PM CDT) Anatomical Region Laterality Modality Body, Chest N/A Computed Radiogr aphy 05/20/2025 9:36 AM CDT Impressions 05/20/2025 9:36 AM CDT 1. 05/19/2025, 12:17 PM: Comparison is made to prior radiograph from the same date. Peripherally inserted central venous catheter tip overlies the superior vena cava. The [place] catheter is in the right lower lobe pulmonary artery. There are small bilateral pleural effusions with bibasilar atelectasis. No pneumonic consolidation or pneumothorax. Stable heart size. 2. 05/19/2025, 3:03 PM: Comparison is made to prior radiograph from the same date. There is no significant interval change. 3. 05/20/2025, 1:40 AM: Comparison is made to 05/19/2025. The [place] catheter has been retracted and now overlies [...] tip overlies the superior vena cava. The [place] catheter is in the right lower lobe pulmonary artery. There are small bilateral pleural effusions with bibasilar atelectasis. No pneumonic consolidation or pneumothorax. Stable heart size. 2. 05/19/2025, 3:03 PM: Comparison is made to prior radiograph from the same date. There is no significant interval change. 3. 05/20/2025, 1:40 AM: Comparison is made to 05/19/2025. The [place] catheter has been retracted and now overlies [...] 7:21 AM CDT A left internal jugular [place] catheter is present in unchanged position with [...] 8:35 AM IMPRESSION: A left internal jugular [place] catheter is present in unchanged position with [...] MD LAB BLOOD ORDERABLE S Final Result [facility] [place] [address] * Magnesium (05/19/2025 5:09 AM CDT) Magnesium 2.2 1.4 - 2.5 mg/dL Blood 05/19/2025 5:09 AM CDT 05/19/2025 5:53 AM CDT us Ramiro Devries MD LAB BLOOD ORDERABLE S Final Result [facility] One [facility] Department [place] [address] * (ABNORMAL) Basic metabolic panel (05/19/2025 5:09 AM CDT) Pathologist [facility] Sodium 140 135 - 145 mmol/L Potassium, pl 3.8 3.3 - 4.9 mmol/L [facility] Chloride 99 97 - 110 mmol/L [facility] CO2 30 22 - 32 mmol/L [facility] Anion gap 11 2 - 15 mmol/L [facility] BUN 42(H) 6 - 25 mg/dL [facility] Creatinine 1.51(H) 0.80 - 1.30 mg/dL [facility] Glucose 116 70 - 199 mg/dL [facility] Comment: Interpretive Data Fasting glucose >/= [...] 2022. Calcium 9.3 8.5 - 10.3 mg/dL [facility] Blood 05/19/2025 5:09 AM CDT 05/19/2025 5:53 AM CDT us Raimro Devries MD LAB BLOOD ORDERABLE S Final Result Performing Organization Address [facility] de Phone Number [facility] [place] [address] * Oxyhemoglobin, pulmonary artery (05/19/2025 5:03 AM CDT) Oxyhemoglobin, PA 64.3 % Comment: Interpretive Data No reference range established. Current interpretive data was last revised 2020. Blood 05/19/2025 5:03 AM CDT 05/19/2025 5:49 AM CDT us Bar Gamble MD LAB BLOOD ORDERABLES Final R esult Performing Organization Address [facility] Co de Phone Number [facility] [place] [address] * (ABNORMAL) Hemoglobin total, pulmonary artery (05/19/2025 5:03 AM CDT) Hemoglobin total, PA 10.4(L) 13.0 - 17.5 g/dL Blood 05/19/2025 5:03 AM CDT 05/19/2025 5:49 AM CDT us Bar Gamble MD LAB BLOOD ORDERABLES Final R esult Performing Organization Address [facility] Co de Phone Number [facility] Department [place] [address] * Potassium, whole blood (05/19/2025 5:03 AM CDT) Potassium, bld 3.6 3.3 - 4.9 mmol/L Blood 05/19/2025 5:03 AM CDT 05/19/2025 5:49 AM CDT us Bar Gamble MD LAB BLOOD ORDERABLES Final R esult Performing Organization Address [facility] Co de Phone Number [facility] [employer] [place] [address] * Lactate, whole blood (05/19/2025 5:03 AM CDT) Lactate, bld 0.7 0.7 - 2.0 mmol/L Blood 05/19/2025 5:03 AM CDT 05/19/2025 5:49 AM CDT us Bar Gamble MD LAB BLOOD ORDERABLES Final R esult Performing Organization Address [facility] [place] [address] * Oxyhemoglobin, pulmonary artery (05/18/2025 10:41 PM CDT) Oxyhemoglobin, PA 67.6 % Comment: Interpretive Data No reference range established. Current interpretive data was last revised 2020. Blood 05/18/2025 10:4 1 PM CDT 05/18/2025 10:59 PM CDT us Bar Gamble MD LAB BLOOD ORDERABLES Final R esult Performing Organization Address [facility] [place] [address] * (ABNORMAL) Hemoglobin total, pulmonary artery (05/18/2025 10:41 PM CDT) Hemoglobin total, PA 10.7(L) 13.0 - 17.5 g/dL Blood 05/18/2025 10:4 1 PM CDT 05/18/2025 10:59 PM CDT us Bar Gamble MD LAB BLOOD ORDERABLES Final R esult Performing Organization Address City/[facility]/ZIP Co de Phone Number [facility] [place] [address] * Potassium, whole blood (05/18/2025 10:41 PM CDT) Potassium, bld 3.8 3.3 - 4.9 mmol/L Blood 05/18/2025 10:4 1 PM CDT 05/18/2025 10:59 PM CDT us Bar Gamble MD LAB BLOOD ORDERABLES Final R esult Performing Organization Address [facility]/ZIP Co [place] [address] * (ABNORMAL) eGFR (05/18/2025 10:41 PM CDT) [...] BLOOD ORDERABLES Final R esult [facility] Department [place] [address] * Lactate, whole blood (05/18/2025 10:41 PM CDT) Lactate, bld 0.9 0.7 - 2.0 mmol/L Blood 05/18/2025 10:4 1 PM CDT 05/18/2025 10:59 PM CDT Zev Cowart MD PhD LAB BLOOD ORDERABLES Fi nal Result Performing Organization Address [facility]/ZIP Co de Phone Number [facility] Department [place] [address] * (ABNORMAL) aPTT (05/18/2025 10:41 PM CDT) Pathologist [facility] aPTT 58(H) 28 - 38 sec Comment: Interpretive Data Heparin therapeutic range: 66.0 - 100.0 seconds. Range based on correlation with therapeutic heparin activity range of 0.3 - 0.7 Units/mL. Current interpretive data was last revised on 2023. Blood 05/18/2025 10:4 1 PM CDT 05/18/2025 11:15 PM CDT Narrative [facility] - 05/18/2025 11:37 PM CDT STAT [...] peripherally (not from CVC). us Libia Suarez NURSE FIRST A[employer] LAB BLOOD ORDERABLES Final Re sult Performing Organization Address City/[facility]/ZIP Co de Phone Number [facility] Department [place] [address] * (ABNORMAL) CBC without differential (05/18/2025 10:41 PM CDT) [facility] WBC 7.74 3.80 - 9.90 K/cumm Hgb 10.2(L) 13.0 - 17.5 g/dL [facility] Hct 31.6(L) 38.9 - 50.3 % [facility] Plt 205 150 - 400 K/cumm [facility] MPV 11.5 9.1 - 12.3 fL [facility] RBC 3.79(L) 4.30 - 5.80 M/cumm [facility] MCV 83.4 81.3 - 96.4 fL [facility] MCH 26.9(L) 27.1 - 33.3 pg [facility] MCHC 32.3 32.3 - 35.7 g/dL [facility] RDW CV 15.5(H) 11.1 - 14.9 % [facility] RDW SD 46.8 35.7 - 48.1 fL [facility] NRBC abs 0.00 0.00 - 0.01 K/cumm [facility] Blood 05/18/2025 10:4 1 PM CDT 05/18/2025 11:11 PM CDT us Bar Gamble MD LAB BLOOD ORDERABLES Final R esult Performing Organization Address City/[facility]/ZIP Co de Phone Number [facility] Department [place] [address] * Phosphorus (05/18/2025 10:41 PM CDT) [facility] Phosphorus, pl 3.8 2.3 - 4.5 mg/dL Blood 05/18/2025 10:4 1 PM CDT 05/18/2025 11:10 PM CDT us Zev Cowart MD PhD LAB BLOOD ORDERABLES Fi nal Result [facility] Department [place] [address] * Magnesium (05/18/2025 10:41 PM CDT) [facility] Magnesium 2.3 1.4 - 2.5 mg/dL Blood 05/18/2025 10:4 1 PM CDT 05/18/2025 11:10 PM CDT us Bar Gamble MD LAB BLOOD ORDERABLES Final R esult Performing Organization Address [facility] Co de Phone Number [facility] [place] [address] * (ABNORMAL) Hepatic function panel (05/18/2025 10:41 PM CDT) [facility] Bilirubin, total 0.5 0.1 - 1.2 mg/dL Bilirubin, direct 0.3 0.1 - 0.3 mg/dL [facility] Protein, pl 6.0(L) 6.5 - 8.5 g/dL [facility] Albumin 3.9 3.5 - 5.0 g/dL [facility] Alk phos 268(H) 40 - 130 Units/L [facility] ALT 17 7 - 55 Units/L [facility] AST 18 10 - 50 Units/L [facility] Blood 05/18/2025 10:4 1 PM CDT 05/18/2025 11:10 PM CDT us Bar Gamble MD LAB BLOOD ORDERABLES Final R esult Performing Organization Address City/[facility] Co de Phone Number [facility] [place] [address] * (ABNORMAL) Basic metabolic panel (05/18/2025 10:41 PM CDT) [facility] Sodium 137 135 - 145 mmol/L Potassium, pl 4.1 3.3 - 4.9 mmol/L [facility] Chloride 99 97 - 110 mmol/L [facility] CO2 30 22 - 32 mmol/L [facility] Anion gap 8 2 - 15 mmol/L [facility] BUN 46(H) 6 - 25 mg/dL [facility] Creatinine 1.61(H) 0.80 - 1.30 mg/dL [facility] Glucose 122 70 - 199 mg/dL [facility] Comment: Interpretive Data Fasting glucose >/= [...] 2022. Calcium 9.1 8.5 - 10.3 mg/dL [facility] Blood 05/18/2025 10:4 1 PM CDT 05/18/2025 11:10 PM CDT us Bar Gamble MD LAB BLOOD ORDERABLES Final R esult Performing Organization Address City/[facility] Co de Phone Number [facility] [employer] [place] [address] * Oxyhemoglobin, pulmonary artery (05/18/2025 5:23 PM CDT) Pathologist [facility] [place] PA 52.2 % Comment: Interpretive Data No reference range established. Current interpretive data was last revised 2020. Blood 05/18/2025 5:23 PM CDT 05/18/2025 5:33 PM CDT us Bar Gamble MD LAB BLOOD ORDERABLES Final R esult [facility] [employer] [place] [address] * (ABNORMAL) Hemoglobin total, pulmonary artery (05/18/2025 5:23 PM CDT) Hemoglobin total, PA 11.9(L) 13.0 - 17.5 g/dL Blood 05/18/2025 5:23 PM CDT 05/18/2025 5:33 PM CDT us Bar Gamble MD LAB BLOOD ORDERABLES Final R esult [facility] [employer] [place] [address] * (ABNORMAL) eGFR (05/18/2025 5:23 PM CDT) [...] BLOOD ORDERABLES Final R esult [facility] Department [place] [address] * Lactate, whole blood (05/18/2025 5:23 PM CDT) [facility] Lactate, bld 0.8 0.7 - 2.0 mmol/L Blood 05/18/2025 5:23 PM CDT 05/18/2025 5:33 PM CDT Bar Gamble MD LAB BLOOD ORDERABLES Final R esult Performing Organization Address City/[facility]/[place] [address] * Magnesium (05/18/2025 5:23 PM CDT) [facility] Magnesium 2.3 1.4 - 2.5 mg/dL Blood 05/18/2025 5:23 PM CDT 05/18/2025 5:40 PM CDT us Bar Gamble MD LAB BLOOD ORDERAB[place] [address] * (ABNORMAL) Basic metabolic panel (05/18/2025 5:23 PM CDT) [facility] Sodium 138 135 - 145 mmol/L Potassium, pl 3.9 3.3 - 4.9 mmol/L [facility] Chloride 98 97 - 110 mmol/L [facility] CO2 28 22 - 32 mmol/L [facility] Anion gap 12 2 - 15 mmol/L [facility] BUN 45(H) 6 - 25 mg/dL [facility] Creatinine 1.47(H) 0.80 - 1.30 mg/dL [facility] Glucose 129 70 - 199 mg/dL [facility] Comment: Interpretive Data Fasting glucose >/= [...] 2022. Calcium 9.4 8.5 - 10.3 mg/dL [facility] Blood 05/18/2025 5:23 PM CDT 05/18/2025 5:40 PM CDT Bar Gamble MD LAB BLOOD ORDERABLES Final R esult Performing Organization Address [facility] Co de Phone Number [facility] Department [place] [address] * Oxyhemoglobin, pulmonary artery (05/18/2025 12:05 PM CDT) Oxyhemoglobin, PA 58.3 % Comment: Interpretive Data No reference range established. Current interpretive data was last revised 2020. Blood 05/18/2025 12:0 5 PM CDT 05/18/2025 12:12 PM CDT Bar Gamble MD LAB BLOOD ORDERABLES Final R esult Performing Organization Address [facility] Co de Phone Number [facility] Department [place] [address] * (ABNORMAL) Hemoglobin total, pulmonary artery (05/18/2025 12:05 PM CDT) Hemoglobin total, PA 11.0(L) 13.0 - 17.5 g/dL Blood 05/18/2025 12:0 5 PM CDT 05/18/2025 12:12 PM CDT Bar Gamble MD LAB BLOOD ORDERABLES Final R esult Performing Organization Address [facility] Co de Phone Number [facility] [place] [address] * Potassium, whole blood (05/18/2025 12:05 PM CDT) Potassium, bld 4.0 3.3 - 4.9 mmol/L Blood 05/18/2025 12:0 5 PM CDT 05/18/2025 12:12 PM CDT Zev Cowart MD PhD LAB BLOOD ORDERABLES Fi nal Result Performing Organization Address [facility] Co de Phone Number [facility] [place] [address] * Lactate, whole blood (05/18/2025 12:05 PM CDT) Lactate, bld 1.3 0.7 - 2.0 mmol/L Blood 05/18/2025 12:0 5 PM CDT 05/18/2025 12:12 PM CDT Zev Cowart MD PhD LAB BLOOD ORDERABLES Fi nal Result Performing Organization Address [facility] Co de Phone Number [facility] [place] [address] * XR Chest 1 View (05/18/2025 8:40 AM CDT) Anatomical Region Laterality Modality Body, Chest N/A Computed Radiogr aphy 05/18/2025 9:28 PM CDT Impressions 05/18/2025 9:28 PM CDT A left internal jugular [place]-Jayne catheter is present with tip overlying the [...] 12:26 PM IMPRESSION: A left internal jugular [place]-Jayne catheter is present with tip overlying the [...] BLOOD ORDERABLES Final R esult [facility] Department of Laboratories [place], [place] [id number] * (ABNORMAL) Hemoglobin total, pulmonary artery (05/18/2025 5:59 AM CDT) Hemoglobin total, PA 11.1(L) 13.0 - 17.5 g/dL Blood 05/18/2025 5:59 AM CDT 05/18/2025 6:11 AM CDT us Bar Gamble MD LAB BLOOD ORDERABLES Final R esult [facility] [place] [address] * (ABNORMAL) Potassium, whole blood (05/18/2025 5:59 AM CDT) Potassium, bld 3.2(L) 3.3 - 4.9 mmol/L Blood 05/18/2025 5:59 AM CDT 05/18/2025 6:15 AM CDT us Bar Gamble MD LAB BLOOD ORDERABLES Final R esult Performing Organization Address [facility] Co de Phone Number [facility] [place] [address] * (ABNORMAL) eGFR (05/18/2025 5:59 AM CDT) [...] ORDERABLES Final R esult Performing Organization Address City/[facility]/ZIP Co de Phone Number [facility] Department [place] [address] * (ABNORMAL) Lactate, whole blood (05/18/2025 5:59 AM CDT) Lactate, bld 0.6(L) 0.7 - 2.0 mmol/L Blood 05/18/2025 5:59 AM CDT 05/18/2025 6:15 AM CDT Bar Gamble MD LAB BLOOD ORDERABLES Final R esult Performing Organization Address [facility] de Phone Number [facility] Department [place] [address] * (ABNORMAL) aPTT (05/18/2025 5:59 AM CDT) aPTT 52(H) 28 - 38 sec Comment: Interpretive Data Heparin therapeutic range: 66.0 - 100.0 seconds. Range based on correlation with therapeutic heparin activity range of 0.3 - 0.7 Units/mL. Current interpretive data was last revised on 2023. Blood 05/18/2025 5:59 AM CDT 05/18/2025 6:18 AM CDT Narrative [facility] - 05/18/2025 6:27 AM CDT STAT [...] drawn peripherally (not from CVC). Libia Suarez NURSE FIRST AID LAB BLOOD ORDERABLES Final Re sult Performing Organization Address [facility]/ZIP Co de Phone Number [facility] Department [place] [address] * (ABNORMAL) CBC without differential (05/18/2025 5:59 AM CDT) Pathologist [facility] WBC 7.83 3.80 - 9.90 K/cumm Hgb 10.5(L) 13.0 - 17.5 g/dL [facility] Hct 32.3(L) 38.9 - 50.3 % [facility] Plt 199 150 - 400 K/cumm [facility] MPV 11.7 9.1 - 12.3 fL [facility] RBC 3.91(L) 4.30 - 5.80 M/cumm [facility] MCV 82.6 81.3 - 96.4 fL [facility] MCH 26.9(L) 27.1 - 33.3 pg [facility] MCHC 32.5 32.3 - 35.7 g/dL [facility] RDW CV 15.5(H) 11.1 - 14.9 % [facility] RDW SD 47.0 35.7 - 48.1 fL [facility] NRBC abs 0.00 0.00 - 0.01 K/cumm [facility] Blood 05/18/2025 5:59 AM CDT 05/18/2025 6:16 AM CDT us Bar Gamble MD LAB BLOOD ORDERABLES Final R esult [facility] Department [place] [address] * Magnesium (05/18/2025 5:59 AM CDT) Pathologist [facility] Magnesium 2.3 1.4 - 2.5 mg/dL Blood 05/18/2025 5:59 AM CDT 05/18/2025 6:16 AM CDT Bar Gamble MD LAB BLOOD ORDERABLES Final R esult Performing Organization Address City/[facility] Co de Phone Number [facility] [place] [address] * (ABNORMAL) Hepatic function panel (05/18/2025 5:59 AM CDT) [facility] Bilirubin, total 0.7 0.1 - 1.2 mg/dL Bilirubin, direct 0.3 0.1 - 0.3 mg/dL [facility] Protein, pl 6.2(L) 6.5 - 8.5 g/dL [facility] Albumin 3.9 3.5 - 5.0 g/dL [facility] Alk phos 266(H) 40 - 130 Units/L [facility] ALT 18 7 - 55 Units/L [facility] AST 20 10 - 50 Units/L [facility] Blood 05/18/2025 5:59 AM CDT 05/18/2025 6:16 AM CDT us Bar Gamble MD LAB BLOOD ORDERABLES Final R [facility] Performing Organization Address [facility] Co de Phone Number [facility] [place] [address] * (ABNORMAL) Basic metabolic panel (05/18/2025 5:59 AM CDT) Sodium 138 135 - 145 mmol/L Potassium, pl 3.2(L) 3.3 - 4.9 mmol/L [facility] Chloride 97 97 - 110 mmol/L [facility] CO2 31 22 - 32 mmol/L [facility] Anion gap 10 2 - 15 mmol/L [facility] BUN 41(H) 6 - 25 mg/dL [facility] Creatinine 1.48(H) 0.80 - 1.30 mg/dL [facility] Glucose 118 70 - 199 mg/dL [facility] Comment: Interpretive Data Fasting glucose >/= [...] 2022. Calcium 9.4 8.5 - 10.3 mg/dL [facility] Blood 05/18/2025 5:59 AM CDT 05/18/2025 6:16 AM CDT us Bar Gamble MD LAB BLOOD ORDERABLES Final R esult Performing Organization Address City/[facility]/ZIP Co de Phone Number [facility] Department [place] [employer] [place] [address] * Antibody identification (05/17/2025 11:01 PM CDT) Antibody ID 1 Anti-CD38 Comment:Panreactive -CD38 on reagent RBCs reacting with anti-CD38 therapy. DTT treatment removes cell surface CD38 and allows detection of common clinically significant antibodies except those against Dilma antigens. TRANSFUSION 2015;[id number] Blood 05/17/2025 11:0 1 PM CDT 05/17/2025 11:01 PM CDT us Libia Suarez NP LAB BLOOD BANK TEST ORDERABLE S Final Result Performing Organization Address City/[facility]/ZIP Co de Phone Number [facility] [place] [employer] [place] [address] * Potassium, whole blood (05/17/2025 10:00 PM CDT) Pathologist [facility] Potassium, bld 3.9 3.3 - 4.9 mmol/L Blood 05/17/2025 10:0 0 PM CDT 05/17/2025 10:08 PM CDT Bar Gamble MD LAB BLOOD ORDERABLES Final R esult Performing Organization Address [facility] Co de Phone Number [facility] [place] [address] * Oxyhemoglobin, pulmonary artery (05/17/2025 9:59 PM CDT) Oxyhemoglobin, PA 50.2 % Comment: Interpretive Data No reference range established. Current interpretive data was last revised 2020. Blood 05/17/2025 9:59 PM CDT 05/17/2025 10:07 PM CDT us Bar Gamble MD LAB BLOOD ORDERABLES Final R esult Performing Organization Address [facility] Co de Phone Number [facility] Department [place] [address] * (ABNORMAL) Hemoglobin total, pulmonary artery (05/17/2025 9:59 PM CDT) Hemoglobin total, PA 12.1(L) 13.0 - 17.5 g/dL Blood 05/17/2025 9:59 PM CDT 05/17/2025 10:07 PM CDT Bar Gamble MD LAB BLOOD ORDERABLES Final R esult Performing Organization Address [facility] Co de Phone Number [facility] [place] [address] * Lactate, whole blood (05/17/2025 9:59 PM CDT) Lactate, bld 1.4 0.7 - 2.0 mmol/L Blood 05/17/2025 9:59 PM CDT 05/17/2025 10:07 PM CDT Bar Gamble MD LAB BLOOD ORDERABLES Final R esult Performing Organization Address [facility] de Phone Number [facility] [employer] [place] [address] * (ABNORMAL) Type and screen (05/17/2025 9:59 PM CDT) ABO Rh O Positive Poppy, indirect Positive(A) [facility] Blood 05/17/2025 9:59 PM CDT 05/17/2025 10:11 PM CDT Narrative [facility] - 05/17/2025 11:01 PM CDT Has the patient had Daratumumab or Isatuximab in the past 6 months?->Unknown Libia Suarez NURSE FIRST AID LAB BLOOD BANK TEST ORDERABLE S Final Result Performing Organization Address [facility] [place] [address] * Oxyhemoglobin, pulmonary artery (05/17/2025 4:08 PM CDT) Oxyhemoglobin, PA 54.6 % Comment: Interpretive Data No reference range established. Current interpretive data was last revised 2020. Blood 05/17/2025 4:08 PM CDT 05/17/2025 4:25 PM CDT us Bar Gamble MD LAB BLOOD ORDERABLES Final R esult Performing Organization Address [facility] [place] [address] * (ABNORMAL) Hemoglobin total, pulmonary artery (05/17/2025 4:08 PM CDT) Hemoglobin total, PA 10.7(L) 13.0 - 17.5 g/dL Blood 05/17/2025 4:08 PM CDT 05/17/2025 4:25 PM CDT us Bar Gamble MD LAB BLOOD ORDERABLES Final R esult Performing Organization Address City/[facility]/ZIP Co de Phone Number [facility] [place] [address] * (ABNORMAL) eGFR (05/17/2025 4:08 PM CDT) [...] ORDERABLES Final R esult Performing Organization Address City/[facility]/ZIP Co de Phone Number [facility] Department [place] [address] * Lactate, whole blood (05/17/2025 4:08 PM CDT) Lactate, bld 1.3 0.7 - 2.0 mmol/L Blood 05/17/2025 4:08 PM CDT 05/17/2025 4:25 PM CDT Zev Cowart MD PhD LAB BLOOD ORDERABLES Fi nal Result Performing Organization Address [facility] Co de Phone Number [facility] Department [place] [address] * (ABNORMAL) aPTT (05/17/2025 4:08 PM CDT) aPTT 66(H) 28 - 38 sec Comment: Interpretive Data Heparin therapeutic range: 66.0 - 100.0 seconds. Range based on correlation with therapeutic heparin activity range of 0.3 - 0.7 Units/mL. Current interpretive data was last revised on 2023. Blood 05/17/2025 4:08 PM CDT 05/17/2025 4:29 PM CDT Narrative [facility] - 05/17/2025 4:52 PM CDT STAT PTT [...] peripherally (not from CVC). us Libia Suarez NURSE FIRST AID LAB BLOOD ORDERABLES Final Re sult Performing Organization Address [facility]/ZIP Co de Phone Number [facility] Department [place] [address] * Magnesium (05/17/2025 4:08 PM CDT) Pathologist [facility] Magnesium 2.2 1.4 - 2.5 mg/dL Blood 05/17/2025 4:08 PM CDT 05/17/2025 4:31 PM CDT Bar Gamble MD LAB BLOOD ORDERABLES Final R esult Performing Organization Address City/[facility]/ZIP Co de Phone Number [facility] Department [place] [employer] [place] [address] * (ABNORMAL) Basic metabolic panel (05/17/2025 4:08 PM CDT) [facility] Sodium 139 135 - 145 mmol/L Potassium, pl 4.4 3.3 - 4.9 mmol/L [facility] Chloride 100 97 - 110 mmol/L [facility] CO2 28 22 - 32 mmol/L [facility] Anion gap 11 2 - 15 mmol/L [facility] BUN 38(H) 6 - 25 mg/dL [facility] Creatinine 1.47(H) 0.80 - 1.30 mg/dL [facility] Glucose 162 70 - 199 mg/dL [facility] Comment: Interpretive Data Fasting glucose >/= [...] 2022. Calcium 9.3 8.5 - 10.3 mg/dL [facility] Blood 05/17/2025 4:08 PM CDT 05/17/2025 4:31 PM CDT Bar Gamble MD LAB BLOOD ORDERABLES Final R esult Performing Organization Address [facility]/ZIP Co de Phone Number [facility] Department [place] [employer] [place] [address] * XR Chest 1 View (05/17/2025 12:39 PM CDT) Anatomical Region Laterality Modality Body, Chest N/A Computed Radiogr aphy 05/17/2025 1:37 PM CDT Impressions 05/17/2025 1:48 PM CDT Comparison with 05/17/2025 4:41 AM. Right internal jugular [place]-Jayne catheter with tip overlying the distal right [...] with 05/17/2025 4:41 AM. Right internal jugular [place]ne catheter with tip overlying the distal right [...] it. Electronically signed by: Jessica Jackson M.D. Andrew Leigh MD IMG XR PROCEDURES Final Result * Oxyhemoglobin, pulmonary artery (05/17/2025 12:34 PM CDT) Oxyhemoglobin, PA 60.2 % Comment: Interpretive Data No reference range established. Current interpretive data was last revised 2020. Blood 05/17/2025 12:3 4 PM CDT 05/17/2025 12:48 PM CDT Bar Gamble MD LAB BLOOD ORDERABLES Final R esult Performing Organization Address [facility] Co de Phone Number [facility] [place] [address] * (ABNORMAL) Hemoglobin total, pulmonary artery (05/17/2025 12:34 PM CDT) Hemoglobin total, PA 10.6(L) 13.0 - 17.5 g/dL Blood 05/17/2025 12:3 4 PM CDT 05/17/2025 12:48 PM CDT Bar Gamble MD LAB BLOOD ORDERABLES Final R esult Performing Organization Address [facility] de Phone Number [facility] [place] [employer] [place] [address] * (ABNORMAL) Lactate, whole blood (05/17/2025 12:34 PM CDT) Lactate, bld 0.6(L) 0.7 - 2.0 mmol/L Blood 05/17/2025 12:3 4 PM CDT 05/17/2025 12:48 PM CDT Bar Gamble MD LAB BLOOD ORDERABLES Final R esult Performing Organization Address [facility] Co de Phone Number [facility] [employer] [place] [address] * RIGHT HEART CATH (05/17/2025 10:14 AM [...] right heart catheterization and replacement of leave-in [place]. Procedure: 1) Consent was obtained 2) The patient was transported to the catheterization bay, prepped, and draped in the usual sterile fashion. 3) I provided direct [id number] monitoring of conscious sedation which was administered by an independent trained nurse using Fentanyl 12.5 mcg and Midazolam 0.5 mg. Sedation time 32 min. Local anesthesia with 1% lidocaine was used. 4) Venous access was obtained in theLeft Internal Jugular vein using modified Seldinger technique and micropuncture approach. A 8 Guyanese sheath was secured into place. 5) Right heart catheterization was performed with a 7.5 [place]ese VIP [place] Jayne catheter. The catheter was advanced sequentially [...] rest on dobutamine 2.5mcg/kg/min. Vannesa Gibbs MD Farm Operations Manager Advanced Heart Failure/Cardiac Transplant us Romelia Lerma MD CV CARDIAC CATH PROCEDUR ES Final Result * (ABNORMAL) POCT oxyhemoglobin (05/17/2025 10:07 AM CDT) PYTHON DJANGO DEVELOPER Oxyhemoglobin 63.0(L) >=65.0 % PYTHON DJANGO DEVELOPER Hemoglobin 10.7(L) 13.0 - 17.5 g/dL [facility] PYTHON DJANGO DEVELOPER O2 content 9.3(L) 15.0 - 22.0 Vol % [facility] Anatomic Site aPOC Pulm Artery [facility] Blood 05/17/2025 10:0 7 AM CDT 05/17/2025 10:07 AM CDT Zev Cowart MD PhD LAB POCT ORDERABLES - D EVICE Final Result [facility] Department [place] [address] * (ABNORMAL) POCT oxyhemoglobin (05/17/2025 10:06 AM CDT) PYTHON DJANGO DEVELOPER Oxyhemoglobin 62.6(L) >=65.0 % PYTHON DJANGO DEVELOPER Hemoglobin 10.3(L) 13.0 - 17.5 g/dL [facility] PYTHON DJANGO DEVELOPER O2 content 9.0(L) 15.0 - 22.0 Vol % [facility] Anatomic Site aPOC Pulm Artery [facility] Blood 05/17/2025 10:0 6 AM CDT 05/17/2025 10:06 AM CDT Zev Cowart MD PhD LAB POCT ORDERABLES - D EVICE Final Result [facility] Department [place] [address] * XR Chest 1 View (05/17/2025 5:12 AM CDT) Anatomical Region Laterality Modality Body, Chest N/A Digital Radiogra phy 05/17/2025 10:5 2 AM CDT Impressions 05/17/2025 2:10 PM CDT Comparison with 05/16/2025. Right internal jugular [place]-Jayne catheter is in unchanged position with tip [...] IMPRESSION: Comparison with 05/16/2025. Right internal jugular [place]-Jayne catheter is in unchanged position with tip [...] Oxyhemoglobin, pulmonary artery (05/17/2025 3:59 AM CDT) Pathologist [facility] Oxyhemoglobin, PA 53.8 % Comment: Interpretive Data No reference range established. Current interpretive data was last revised 2020. Blood 05/17/2025 3:59 AM CDT 05/17/2025 4:22 AM CDT us Bar Gamble MD LAB BLOOD ORDERABLES Final R esult Performing Organization Address City/[facility] Co de Phone Number [facility] Department [place] [address] * (ABNORMAL) Hemoglobin total, pulmonary artery (05/17/2025 3:59 AM CDT) [facility] Hemoglobin total, PA 11.3(L) 13.0 - 17.5 g/dL Blood 05/17/2025 3:59 AM CDT 05/17/2025 4:22 AM CDT us Bar Gamble MD LAB BLOOD ORDERABLES Final R esult Performing Organization Address [facility] Co de Phone Number [facility] Department [place] [employer] [place] [address] * Potassium, whole blood (05/17/2025 3:59 AM CDT) [facility] Potassium, bld 3.9 3.3 - 4.9 mmol/L Blood 05/17/2025 3:59 AM CDT 05/17/2025 4:22 AM CDT us Zev Cowart MD PhD LAB BLOOD ORDERABLES Fi nal Result Performing Organization Address City/[facility] Co de Phone Number [facility] [employer] [place] [address] * (ABNORMAL) eGFR (05/17/2025 3:59 AM CDT) Pathologist [facility] eGFR 57(L) >=60 mL/min/1. 73 m2 Comment: [...] ORDERABLES Final R esult Performing Organization Address City/[facility]/ZIP Co de [facility] [place] [employer] [place] [address] * Lactate, whole blood (05/17/2025 3:59 AM CDT) Lactate, bld 0.8 0.7 - 2.0 mmol/L Blood 05/17/2025 3:59 AM CDT 05/17/2025 4:22 AM CDT us Zev Cowart MD PhD LAB BLOOD ORDERABLES Fi nal Result [facility] Department [place] [employer] [place] [address] * (ABNORMAL) aPTT (05/17/2025 3:59 AM CDT) aPTT 61(H) 28 - 38 sec Comment: Interpretive Data Heparin therapeutic range: 66.0 - 100.0 seconds. Range based on correlation with therapeutic heparin activity range of 0.3 - 0.7 Units/mL. Current interpretive data was last revised on 2023. Blood 05/17/2025 3:59 AM CDT 05/17/2025 4:27 AM CDT Narrative [facility] - 05/17/2025 4:50 AM CDT STAT PTT [...] peripherally (not from CVC). us Libia Suarez NURSE FIRST AID LAB BLOOD ORDERABLES Final Re sult [facility] Department [place] [address] * (ABNORMAL) CBC without differential (05/17/2025 3:59 AM CDT) [facility] WBC 7.59 3.80 - 9.90 K/cumm Hgb 10.5(L) 13.0 - 17.5 g/dL [facility] Hct 32.8(L) 38.9 - 50.3 % [facility] Plt 192 150 - 400 K/cumm [facility] MPV 11.5 9.1 - 12.3 fL [facility] RBC 3.88(L) 4.30 - 5.80 M/cumm [facility] MCV 84.5 81.3 - 96.4 fL [facility] MCH 27.1 27.1 - 33.3 pg [facility] MCHC 32.0(L) 32.3 - 35.7 g/dL [facility] RDW CV 15.6(H) 11.1 - 14.9 % [facility] RDW SD 47.8 35.7 - 48.1 fL [facility] NRBC abs 0.00 0.00 - 0.01 K/cumm [facility] Blood 05/17/2025 3:59 AM CDT 05/17/2025 4:28 AM CDT us Bar Gamble MD LAB BLOOD ORDERABLES Final R esult Performing Organization Address [facility] [place] [address] * Phosphorus (05/17/2025 3:59 AM CDT) [facility] Phosphorus, pl 3.4 2.3 - 4.5 mg/dL Blood 05/17/2025 3:59 AM CDT 05/17/2025 4:28 AM CDT us Zev Cowart MD PhD LAB BLOOD ORDERABLES Fi nal Result Performing Organization Address [facility] de Phone Number [facility] [place] [employer] [place] [address] * Magnesium (05/17/2025 3:59 AM CDT) [facility] Magnesium 2.1 1.4 - 2.5 mg/dL Blood 05/17/2025 3:59 AM CDT 05/17/2025 4:28 AM CDT us Bar Gamble MD LAB BLOOD ORDERABLES Final R esult Performing Organization Address [facility] Co de Phone Number [facility] [place] [address] * (ABNORMAL) Hepatic function panel (05/17/2025 3:59 AM CDT) [facility] Bilirubin, total 0.7 0.1 - 1.2 mg/dL Bilirubin, direct 0.3 0.1 - 0.3 mg/dL [facility] Protein, pl 6.3(L) 6.5 - 8.5 g/dL [facility] Albumin 3.8 3.5 - 5.0 g/dL [facility] Alk phos 273(H) 40 - 130 Units/L [facility] ALT 19 7 - 55 Units/L [facility] AST 22 10 - 50 Units/L [facility] Blood 05/17/2025 3:59 AM CDT 05/17/2025 4:28 AM CDT us Bar Gamble MD LAB BLOOD ORDERABLES Final R esult [facility] Department [place] [address] * (ABNORMAL) Basic metabolic panel (05/17/2025 3:59 AM CDT) [facility] Sodium 140 135 - 145 mmol/L Potassium, pl 4.2 3.3 - 4.9 mmol/L [facility] Chloride 103 97 - 110 mmol/L [facility] CO2 27 22 - 32 mmol/L [facility] Anion gap 10 2 - 15 mmol/L [facility] BUN 39(H) 6 - 25 mg/dL [facility] Creatinine 1.41(H) 0.80 - 1.30 mg/dL [facility] Glucose 119 70 - 199 mg/dL [facility] Comment: Interpretive Data Fasting glucose >/= [...] 2022. Calcium 9.3 8.5 - 10.3 mg/dL [facility] Blood 05/17/2025 3:59 AM CDT 05/17/2025 4:28 AM CDT Bar Gamble MD LAB BLOOD ORDERABLES Final R esult Performing Organization Address [facility] Co de Phone Number [facility] [employer] [place] [address] * Oxyhemoglobin, pulmonary artery (05/16/2025 9:47 PM CDT) Oxyhemoglobin, PA 55.0 % Comment: Interpretive Data No reference range established. Current interpretive data was last revised 2020. Blood 05/16/2025 9:47 PM CDT 05/16/2025 9:56 PM CDT us Bar Gamble MD LAB BLOOD ORDERABLES Final R esult Performing Organization Address [facility] [place] [address] * (ABNORMAL) Hemoglobin total, pulmonary artery (05/16/2025 9:47 PM CDT) Hemoglobin total, PA 11.6(L) 13.0 - 17.5 g/dL Blood 05/16/2025 9:47 PM CDT 05/16/2025 9:56 PM CDT Bar Gamble MD LAB BLOOD ORDERABLES Final R esult Performing Organization Address City/[facility] [facility] Co de Phone Number [facility] [employer] [place] [address] * Potassium, whole blood (05/16/2025 9:47 PM CDT) Potassium, bld 3.4 3.3 - 4.9 mmol/L Blood 05/16/2025 9:47 PM CDT 05/16/2025 9:56 PM CDT Bar Gamble MD LAB BLOOD ORDERABLES Final R esult Performing Organization Address [facility] Co de Phone Number [facility] [employer] [place] [address] * Lactate, whole blood (05/16/2025 9:47 PM CDT) Lactate, bld 0.8 0.7 - 2.0 mmol/L Blood 05/16/2025 9:47 PM CDT 05/16/2025 9:56 PM CDT Bar Gamble MD LAB BLOOD ORDERABLES Final R esult Performing Organization Address [facility] Co de Phone Number [facility] [employer] [place] [address] * Magnesium (05/16/2025 9:47 PM CDT) Magnesium 2.1 1.4 - 2.5 mg/dL Blood 05/16/2025 9:47 PM CDT 05/16/2025 10:02 PM CDT Bar Gamble MD LAB BLOOD ORDERABLES Final R esult Performing Organization Address [facility] [place] [address] * Oxyhemoglobin, pulmonary artery (05/16/2025 4:21 PM CDT) Oxyhemoglobin, PA 59.1 % Comment: Interpretive Data No reference range established. Current interpretive data was last revised 2020. Blood 05/16/2025 4:21 PM CDT 05/16/2025 4:39 PM CDT Bar Gamble MD LAB BLOOD ORDERABLES Final R esult [facility] [place] [address] * (ABNORMAL) Hemoglobin total, pulmonary artery (05/16/2025 4:21 PM CDT) Hemoglobin total, PA 11.6(L) 13.0 - 17.5 g/dL Blood 05/16/2025 4:21 PM CDT 05/16/2025 4:39 PM CDT Bar Gamble MD LAB BLOOD ORDERABLES Final R esult Performing Organization Address [facility] Co de Phone Number [facility] [place] [address] * (ABNORMAL) eGFR (05/16/2025 4:21 PM CDT) [...] ORDERABLES Final R esult Performing Organization Address City/[facility] [place] [address] * (ABNORMAL) Lactate, whole blood (05/16/2025 4:21 PM CDT) [facility] Lactate, bld 0.6(L) 0.7 - 2.0 mmol/L Blood 05/16/2025 4:21 PM CDT 05/16/2025 4:39 PM CDT us Bar Gamble MD LAB BLOOD ORDERABLES Final R esult Performing Organization Address [facility] Co de Phone Number [facility] [employer] [place] [address] * Magnesium (05/16/2025 4:21 PM CDT) [facility] Magnesium 2.2 1.4 - 2.5 mg/dL Blood 05/16/2025 4:21 PM CDT 05/16/2025 4:50 PM CDT Bar Gamble MD LAB BLOOD ORDERABLES Final R [facility] Performing Organization Address [facility] [place] [address] * (ABNORMAL) Basic metabolic panel (05/16/2025 4:21 PM CDT) [facility] Sodium 140 135 - 145 mmol/L Potassium, pl 4.0 3.3 - 4.9 mmol/L [facility] Chloride 101 97 - 110 mmol/L [facility] CO2 27 22 - 32 mmol/L [facility] Anion gap 12 2 - 15 mmol/L [facility] BUN 41(H) 6 - 25 mg/dL [facility] Creatinine 1.46(H) 0.80 - 1.30 mg/dL [facility] Glucose 119 70 - 199 mg/dL [facility] Comment: Interpretive Data Fasting glucose >/= [...] 2022. Calcium 9.6 8.5 - 10.3 mg/dL [facility] Blood 05/16/2025 4:21 PM CDT 05/16/2025 4:50 PM CDT us Bar Gamble MD LAB BLOOD ORDERABLES Final R esult Performing Organization Address City/[facility] Co de Phone Number [facility] Department [place] [employer] [place] [address] * Oxyhemoglobin, pulmonary artery (05/16/2025 8:10 AM CDT) Oxyhemoglobin, PA 69.1 % Comment: Interpretive Data No reference range established. Current interpretive data was last revised 2020. Blood 05/16/2025 8:10 AM CDT 05/16/2025 8:24 AM CDT us Bar Gamble MD LAB BLOOD ORDERABLES Final R esult [facility] Department [place] [employer] [place] [address] * (ABNORMAL) Hemoglobin total, pulmonary artery (05/16/2025 8:10 AM CDT) Hemoglobin total, PA 11.1(L) 13.0 - 17.5 g/dL Blood 05/16/2025 8:10 AM CDT 05/16/2025 8:24 AM CDT Bar Gamble MD LAB BLOOD ORDERABLES Final R esult Performing Organization Address [facility] Co de Phone Number [facility] [place] [address] * Lactate, whole blood (05/16/2025 8:10 AM CDT) Lactate, bld 0.9 0.7 - 2.0 mmol/L Blood 05/16/2025 8:10 AM CDT 05/16/2025 8:24 AM CDT Bar Gamble MD LAB BLOOD ORDERABLES Final R [facility] Performing Organization Address [facility] de Phone Number [facility] [place] [address] * (ABNORMAL) aPTT (05/16/2025 8:10 AM CDT) aPTT 63(H) 28 - 38 sec Comment: Interpretive Data Heparin therapeutic range: 66.0 - 100.0 seconds. Range based on correlation with therapeutic heparin activity range of 0.3 - 0.7 Units/mL. Current interpretive data was last revised on 2023. Blood 05/16/2025 8:10 AM CDT 05/16/2025 8:37 AM CDT Narrative [facility] - 05/16/2025 8:45 AM CDT STAT PTT [...] ORDERABLES Final Re sult Performing Organization Address [facility] Co de Phone Number [facility] [employer] [place] [address] * Oxyhemoglobin, pulmonary artery (05/16/2025 5:07 AM CDT) Oxyhemoglobin, PA 64.7 % Comment: Interpretive Data No reference range established. Current interpretive data was last revised 2020. Blood 05/16/2025 5:07 AM CDT 05/16/2025 5:19 AM CDT Bar Gamble MD LAB BLOOD ORDERABLES Final R esult Performing Organization Address [facility] [place] [address] * (ABNORMAL) Hemoglobin total, pulmonary artery (05/16/2025 5:07 AM CDT) Pathologist [facility] Hemoglobin total, PA 10.9(L) 13.0 - 17.5 g/dL Blood 05/16/2025 5:07 AM CDT 05/16/2025 5:19 AM CDT Bar Gamble MD LAB BLOOD ORDERABLES Final R esult Performing Organization Address [facility] Co de Phone Number [facility] [employer] [place] [address] * (ABNORMAL) eGFR (05/16/2025 5:07 AM CDT) Pathologist [facility] eGFR 52(L) >=60 mL/min/1. 73 m2 Comment: [...] ORDERABLES Final R esult Performing Organization Address City/[facility] Co de Phone Number [facility] [place] [employer] [place] [address] * (ABNORMAL) Lactate, whole blood (05/16/2025 5:07 AM CDT) Lactate, bld 0.6(L) 0.7 - 2.0 mmol/L Blood 05/16/2025 5:07 AM CDT 05/16/2025 5:19 AM CDT us Bar Gamble MD LAB BLOOD ORDERABLES Final R esult [facility] [place] [address] * (ABNORMAL) CBC without differential (05/16/2025 5:07 AM CDT) WBC 10.14(H) 3.80 - 9.90 K/cumm Hgb 10.3(L) 13.0 - 17.5 g/dL [facility] Hct 31.5(L) 38.9 - 50.3 % [facility] Plt 186 150 - 400 K/cumm [facility] MPV 11.8 9.1 - 12.3 fL [facility] RBC 3.77(L) 4.30 - 5.80 M/cumm [facility] MCV 83.6 81.3 - 96.4 fL [facility] MCH 27.3 27.1 - 33.3 pg [facility] MCHC 32.7 32.3 - 35.7 g/dL [facility] RDW CV 15.5(H) 11.1 - 14.9 % [facility] RDW SD 47.5 35.7 - 48.1 fL [facility] NRBC abs 0.00 0.00 - 0.01 K/cumm [facility] Blood 05/16/2025 5:07 AM CDT 05/16/2025 5:28 AM CDT us Bar Gamble MD LAB BLOOD ORDERABLES Final R esult Performing Organization Address City/[facility]/ZIP Co de Phone Number [facility] [place] [employer] [place] [address] * Magnesium (05/16/2025 5:07 AM CDT) Pathologist [facility] Magnesium 2.1 1.4 - 2.5 mg/dL Blood 05/16/2025 5:07 AM CDT 05/16/2025 5:28 AM CDT us Bar Gamble MD LAB BLOOD ORDERABLES Final R esult [facility] [employer] [place] [address] * (ABNORMAL) Hepatic function panel (05/16/2025 5:07 AM CDT) Bilirubin, total 0.5 0.1 - 1.2 mg/dL Bilirubin, direct 0.3 0.1 - 0.3 mg/dL [facility] Protein, pl 6.1(L) 6.5 - 8.5 g/dL [facility] Albumin 3.7 3.5 - 5.0 g/dL [facility] Alk phos 275(H) 40 - 130 Units/L [facility] ALT 19 7 - 55 Units/L [facility] AST 22 10 - 50 Units/L [facility] Blood 05/16/2025 5:07 AM CDT 05/16/2025 5:28 AM CDT us Bar Gamble MD LAB BLOOD ORDERABLES Final R esult [facility] [place] [address] * (ABNORMAL) Basic metabolic panel (05/16/2025 5:07 AM CDT) [facility] Sodium 139 135 - 145 mmol/L Potassium, pl 3.2(L) 3.3 - 4.9 mmol/L [facility] Chloride 102 97 - 110 mmol/L [facility] CO2 27 22 - 32 mmol/L [facility] Anion gap 10 2 - 15 mmol/L [facility] BUN 45(H) 6 - 25 mg/dL [facility] Creatinine 1.51(H) 0.80 - 1.30 mg/dL [facility] Glucose 116 70 - 199 mg/dL [facility] Comment: Interpretive Data Fasting glucose >/= [...] 2022. Calcium 8.9 8.5 - 10.3 mg/dL [facility] Blood 05/16/2025 5:07 AM CDT 05/16/2025 5:28 AM CDT Bar Gamble MD LAB BLOOD ORDERABLES Final R esult [facility] [place] [address] * XR Chest 1 View (05/16/2025 4:51 AM CDT) Anatomical Region Laterality Modality Body, Chest N/A Computed Radiogr aphy 05/16/2025 10:4 6 AM CDT Impressions 05/16/2025 8:22 PM CDT Comparison with 05/15/2025. Right internal jugular [place] catheter is in unchanged position with tip [...] IMPRESSION: Comparison with 05/15/2025. Right internal jugular [place] catheter is in unchanged position with tip [...] Performing Organization Address [facility] Co de Phone Number [facility] [place] [address] * (ABNORMAL) Hemoglobin total, pulmonary artery (05/15/2025 11:44 PM CDT) Hemoglobin total, PA 11.8(L) 13.0 - 17.5 g/dL Blood 05/15/2025 11:4 4 PM CDT 05/15/2025 11:53 PM CDT us Bar Gamble MD LAB BLOOD ORDERABLES Final R esult Performing Organization Address [facility] Co de Phone Number [facility] [place] [address] * Lactate, whole blood (05/15/2025 11:44 PM CDT) Lactate, bld 0.8 0.7 - 2.0 mmol/L Blood 05/15/2025 11:4 4 PM CDT 05/15/2025 11:53 PM CDT Bar Gamble MD LAB BLOOD ORDERABLES Final R esult Performing Organization Address [facility]/ZIP Co de Phone Number [facility] [place] [address] * Oxyhemoglobin, pulmonary artery (05/15/2025 5:11 PM CDT) [facility] Oxyhemoglobin, PA 55.6 % Comment: Interpretive Data No reference range established. Current interpretive data was last revised 2020. Blood 05/15/2025 5:11 PM CDT 05/15/2025 5:26 PM CDT us Bar Gamble MD LAB BLOOD ORDERABLES Final R esult Performing Organization Address City/[facility]/[place] [address] * (ABNORMAL) Hemoglobin total, pulmonary artery (05/15/2025 5:11 PM CDT) [facility] Hemoglobin total, PA 11.5(L) 13.0 - 17.5 g/dL Blood 05/15/2025 5:11 PM CDT 05/15/2025 5:26 PM CDT us Bar Gamble MD LAB BLOOD ORDERABLES Final R esult Performing Organization Address City/[facility] Co de Phone Number [facility] [place] [address] * (ABNORMAL) eGFR (05/15/2025 5:11 PM CDT) [facility] eGFR 51(L) >=60 mL/min/1. 73 m2 Comment: [...] ORDERABLES Final R esult Performing Organization Address City/[facility] Co de Phone Number [facility] [employer] [place] [address] * Lactate, whole blood (05/15/2025 5:11 PM CDT) Lactate, bld 1.0 0.7 - 2.0 mmol/L Blood 05/15/2025 5:11 PM CDT 05/15/2025 5:26 PM CDT Bar Gamble MD LAB BLOOD ORDERABLES Final R esult Performing Organization Address [facility] Co de Phone Number [facility] Department [place] [employer] [place] [address] * Magnesium (05/15/2025 5:11 PM CDT) Magnesium 2.1 1.4 - 2.5 mg/dL Blood 05/15/2025 5:11 PM CDT 05/15/2025 5:34 PM CDT Bar Gamble MD LAB BLOOD ORDERABLES Final R esult Performing Organization Address [facility] Co de Phone Number [facility] [place] [address] * (ABNORMAL) Basic metabolic panel (05/15/2025 5:11 PM CDT) Pathologist [facility] Sodium 139 135 - 145 mmol/L Potassium, pl 3.7 3.3 - 4.9 mmol/L [facility] Chloride 102 97 - 110 mmol/L [facility] CO2 27 22 - 32 mmol/L [facility] Anion gap 10 2 - 15 mmol/L [facility] BUN 43(H) 6 - 25 mg/dL [facility] Creatinine 1.54(H) 0.80 - 1.30 mg/dL [facility] Glucose 138 70 - 199 mg/dL [facility] Comment: Interpretive Data Fasting glucose >/= [...] 2022. Calcium 9.0 8.5 - 10.3 mg/dL [facility] Blood 05/15/2025 5:11 PM CDT 05/15/2025 5:34 PM CDT Bar Gamble MD LAB BLOOD ORDERABLES Final R esult [facility] [place] [address] * Oxyhemoglobin, pulmonary artery (05/15/2025 11:23 AM CDT) Pathologist [facility] Oxyhemoglobin, PA 55.8 % Comment: Interpretive Data No reference range established. Current interpretive data was last revised 2020. Blood 05/15/2025 11:2 3 AM CDT 05/15/2025 11:37 AM CDT Bar Gamble MD LAB BLOOD ORDERABLES Final R esult Performing Organization Address [facility] Co de Phone Number [facility] [place] [address] * (ABNORMAL) Hemoglobin total, pulmonary artery (05/15/2025 11:23 AM CDT) Hemoglobin total, PA 11.2(L) 13.0 - 17.5 g/dL Blood 05/15/2025 11:2 3 AM CDT 05/15/2025 11:37 AM CDT Bar Gamble MD LAB BLOOD ORDERABLES Final R esult Performing Organization Address [facility] de Phone Number [facility] [place] [address] * Lactate, whole blood (05/15/2025 11:23 AM CDT) Lactate, bld 1.2 0.7 - 2.0 mmol/L Blood 05/15/2025 11:2 3 AM CDT 05/15/2025 11:37 AM CDT Bar Gamble MD LAB BLOOD ORDERABLES Final R esult Performing Organization Address [facility] de Phone Number [facility] [employer] [place] [address] * XR Chest 1 View (05/15/2025 5:05 AM CDT) Anatomical Region Laterality Modality Body, Chest N/A Digital Radiogra phy 05/15/2025 10:4 8 AM CDT Impressions 05/15/2025 11:08 AM CDT Comparison with 05/14/2025. Right internal jugular [place] catheter is in unchanged position with tip [...] IMPRESSION: Comparison with 05/14/2025. Right internal jugular [place] catheter is in unchanged position with tip [...] Oxyhemoglobin, pulmonary artery (05/15/2025 5:03 AM CDT) WILMAN Godfrey 53.5 % Comment: Interpretive Data No reference range established. Current interpretive data was last revised 2020. Blood 05/15/2025 5:03 AM CDT 05/15/2025 5:25 AM CDT us Bar Gamble MD LAB BLOOD ORDERABLES Final R esult [facility] [place] [address] * (ABNORMAL) Hemoglobin total, pulmonary artery (05/15/2025 5:03 AM CDT) Pathologist [facility] Hemoglobin total, PA 11.5(L) 13.0 - 17.5 g/dL Blood 05/15/2025 5:03 AM CDT 05/15/2025 5:25 AM CDT us Bar Gamble MD LAB BLOOD ORDERABLES Final R esult Performing Organization Address [facility] Co de Phone Number [facility] [employer] [place] [address] * Erythropoietin (05/15/2025 5:03 AM CDT) [facility] Erythropoietin 16.7 2.6 - 18.5 mIUnits/mL [facility] Comment: Test Performed by: [facility] [address] [place] [address] Pot Room Supervisor: Milagros Henriquez Ph.D.; CLIA# [id number] Blood 05/15/2025 5:03 AM CDT 05/15/2025 5:25 AM CDT us Zev Cowart MD PhD LAB BLOOD ORDERABLES Fi nal Result Performing Organization Address [facility] de Phone Number [facility] [employer] [place] [address] [facility] * Lactate, whole blood (05/15/2025 5:03 AM CDT) [facility] Lactate, bld 0.9 0.7 - 2.0 mmol/L Blood 05/15/2025 5:03 AM CDT 05/15/2025 5:25 AM CDT us Bar Gamble MD LAB BLOOD ORDERABLES Final R esult Performing Organization Address [facility] Co de Phone Number [facility] [place] [address] * (ABNORMAL) aPTT (05/15/2025 5:03 AM CDT) [facility] aPTT 60(H) 28 - 38 sec Comment: Interpretive Data Heparin therapeutic range: 66.0 - 100.0 seconds. Range based on correlation with therapeutic heparin activity range of 0.3 - 0.7 Units/mL. Current interpretive data was last revised on 2023. Blood 05/15/2025 5:03 AM CDT 05/15/2025 5:38 AM CDT Narrative [facility] - 05/15/2025 5:49 AM CDT STAT [...] drawn peripherally (not from CVC). Libia Suarez N[facility] LAB BLOOD ORDERABLES Final Re sult [facility] [place] [address] * (ABNORMAL) CBC without differential (05/15/2025 5:03 AM CDT) [facility] WBC 8.01 3.80 - 9.90 K/cumm Hgb 10.6(L) 13.0 - 17.5 g/dL [facility] Hct 32.9(L) 38.9 - 50.3 % [facility] Plt 184 150 - 400 K/cumm [facility] MPV 12.0 9.1 - 12.3 fL [facility] RBC 3.94(L) 4.30 - 5.80 M/cumm [facility] MCV 83.5 81.3 - 96.4 fL [facility] MCH 26.9(L) 27.1 - 33.3 pg [facility] MCHC 32.2(L) 32.3 - 35.7 g/dL [facility] RDW CV 15.4(H) 11.1 - 14.9 % [facility] RDW SD 47.8 35.7 - 48.1 fL [facility] NRBC abs 0.00 0.00 - 0.01 K/cumm [facility] Blood 05/15/2025 5:03 AM CDT 05/15/2025 5:25 AM CDT us Bar Gamble MD LAB BLOOD ORDERABLES Final R esult Performing Organization Address [facility] Co de Phone Number [facility] Department [place] [address] * Antibody identification (05/14/2025 10:57 PM CDT) [facility] Antibody ID 1 Anti-CD38 Comment:Panreactive -CD38 on reagent RBCs reacting with anti-CD38 therapy. DTT treatment removes cell surface CD38 and allows detection of common clinically significant antibodies except those against Dilma antigens. TRANSFUSION [id number] Blood 05/14/2025 10:5 7 PM CDT 05/14/2025 10:57 PM CDT us Libia Suarez NP LAB BLOOD BANK TEST ORDERABLE S Final Result Performing Organization Address [facility] Co de Phone Number [facility] Department [place] [address] * Oxyhemoglobin, pulmonary artery (05/14/2025 8:39 PM CDT) Pathologist [facility] Oxyhemoglobin, PA 55.6 % Comment: Interpretive Data No reference range established. Current interpretive data was last revised 2020. Blood 05/14/2025 8:39 PM CDT 05/14/2025 9:06 PM CDT us Bar Gamble MD LAB BLOOD ORDERABLES Final R esult Performing Organization Address [facility] Co de Phone Number [facility] [place] [address] * (ABNORMAL) Hemoglobin total, pulmonary artery (05/14/2025 8:39 PM CDT) Hemoglobin total, PA 10.7(L) 13.0 - 17.5 g/dL Blood 05/14/2025 8:39 PM CDT 05/14/2025 9:06 PM CDT us Bar Gamble MD LAB BLOOD ORDERABLES Final R esult Performing Organization Address [facility] Co de Phone Number [facility] [place] [address] * Potassium, whole blood (05/14/2025 8:39 PM CDT) Potassium, bld 3.4 3.3 - 4.9 mmol/L Blood 05/14/2025 8:39 PM CDT 05/14/2025 9:06 PM CDT us Zev Cowart MD PhD LAB BLOOD ORDERABLES Fi nal Result Performing Organization Address [facility] Co de Phone Number [facility] [place] [address] * Lactate, whole blood (05/14/2025 8:39 PM CDT) Lactate, bld 0.8 0.7 - 2.0 mmol/L Blood 05/14/2025 8:39 PM CDT 05/14/2025 9:06 PM CDT us Bar Gamble MD LAB BLOOD ORDERABLES Final R esult Performing Organization Address [facility] de Phone Number [facility] [place] [address] * (ABNORMAL) Type and screen (05/14/2025 8:39 PM CDT) ABO Rh O Positive Poppy, indirect Positive(A) [facility] Blood 05/14/2025 8:39 PM CDT 05/14/2025 9:39 PM CDT Narrative [facility] - 05/14/2025 10:57 PM CDT Has the patient had Daratumumab or Isatuximab in the past 6 months?->Unknown us Libia Suarez [facility] LAB BLOOD BANK TEST ORDERABLE S Final Result Performing Organization Address [facility] [place] [address] * Oxyhemoglobin, pulmonary artery (05/14/2025 4:01 PM CDT) Oxyhemoglobin, PA 58.4 % Comment: Interpretive Data No reference range established. Current interpretive data was last revised 2020. Blood 05/14/2025 4:01 PM CDT 05/14/2025 4:30 PM CDT us Bar Gamble MD LAB BLOOD ORDERABLES Final R esult Performing Organization Address [facility] [place] [address] * (ABNORMAL) Hemoglobin total, pulmonary artery (05/14/2025 4:01 PM CDT) Hemoglobin total, PA 11.6(L) 13.0 - 17.5 g/dL Blood 05/14/2025 4:01 PM CDT 05/14/2025 4:30 PM CDT us Bar Gamble MD LAB BLOOD ORDERABLES Final R esult Performing Organization Address City/[facility]/ZIP Co de Phone Number DULCE MARIA [facility] Department [place] [address] * (ABNORMAL) eGFR (05/14/2025 4:01 PM CDT) [...] ORDERABLES Final R esult Performing Organization Address City/[facility]/ZIP Co de Phone Number DULCE MARIA [facility] [place] [address] * Lactate, whole blood (05/14/2025 4:01 PM CDT) Lactate, bld 0.7 0.7 - 2.0 mmol/L Blood 05/14/2025 4:01 PM CDT 05/14/2025 4:23 PM CDT Bar Gamble MD LAB BLOOD ORDERABLES Final R esult Performing Organization Address City/[facility]/ZIP Co de Phone Number [facility] One [facility] [employer] [place] [address] * Magnesium (05/14/2025 4:01 PM CDT) [facility] Magnesium 2.2 1.4 - 2.5 mg/dL Blood 05/14/2025 4:01 PM CDT 05/14/2025 4:44 PM CDT Bar Gamble MD LAB BLOOD ORDERABLES Final R [facility] Performing Organization Address [facility] Co de Phone Number [facility] [place] [address] * (ABNORMAL) Basic metabolic panel (05/14/2025 4:01 PM CDT) [facility] Sodium 137 135 - 145 mmol/L Potassium, pl 4.1 3.3 - 4.9 mmol/L [facility] Chloride 99 97 - 110 mmol/L [facility] CO2 28 22 - 32 mmol/L [facility] Anion gap 10 2 - 15 mmol/L [facility] BUN 42(H) 6 - 25 mg/dL [facility] Creatinine 1.45(H) 0.80 - 1.30 mg/dL [facility] Glucose 114 70 - 199 mg/dL [facility] Comment: Interpretive Data Fasting glucose >/= [...] 2022. Calcium 9.0 8.5 - 10.3 mg/dL [facility] Blood 05/14/2025 4:01 PM CDT 05/14/2025 4:44 PM CDT Bar Gamble MD LAB BLOOD ORDERABLES Final R esult [facility] [employer] [place] [address] * Oxyhemoglobin, pulmonary artery (05/14/2025 10:58 AM CDT) Oxyhemoglobin, PA 61.5 % Comment: Interpretive Data No reference range established. Current interpretive data was last revised 2020. Blood 05/14/2025 10:5 8 AM CDT 05/14/2025 11:11 AM CDT us Bar Gamble MD LAB BLOOD ORDERABLES Final R esult Performing Organization Address City/[facility] Co de Phone Number [facility] [place] [address] * (ABNORMAL) Hemoglobin total, pulmonary artery (05/14/2025 10:58 AM CDT) Hemoglobin total, PA 11.1(L) 13.0 - 17.5 g/dL Blood 05/14/2025 10:5 8 AM CDT 05/14/2025 11:11 AM CDT Bar Gamble MD LAB BLOOD ORDERABLES Final R esult Performing Organization Address City/State/[facility] [place] [address] * Lactate, whole blood (05/14/2025 10:58 AM CDT) Lactate, bld 1.0 0.7 - 2.0 mmol/L Blood 05/14/2025 10:5 8 AM CDT 05/14/2025 11:11 AM CDT us Bar Gamble MD LAB BLOOD ORDERABLES Final R esult Performing Organization Address [facility] Co de Phone Number [facility] [place] [address] * Oxyhemoglobin, pulmonary artery (05/14/2025 5:26 AM CDT) Oxyhemoglobin, PA 60.3 % Comment: Interpretive Data No reference range established. Current interpretive data was last revised 2020. Blood 05/14/2025 5:26 AM CDT 05/14/2025 5:51 AM CDT us Bar Gamble MD LAB BLOOD ORDERABLES Final R esult Performing Organization Address [facility] de Phone Number [facility] Department [place] [address] * (ABNORMAL) Hemoglobin total, pulmonary artery (05/14/2025 5:26 AM CDT) Pathologist [facility] Hemoglobin total, PA 11.0(L) 13.0 - 17.5 g/dL Blood 05/14/2025 5:26 AM CDT 05/14/2025 5:51 AM CDT us Bar Gamble MD LAB BLOOD ORDERABLES Final R esult Performing Organization Address [facility] Co de Phone Number [facility] [place] [address] * eGFR (05/14/2025 5:26 AM CDT) Pathologist [facility] eGFR 60 >=60 mL/min/1. 73 m2 Comment: [...] ORDERABLES Final R esult Performing Organization Address City/[facility]/ZIP Co de Phone Number [facility] Department [place] [address] * (ABNORMAL) Lactate, whole blood (05/14/2025 5:26 AM CDT) Lactate, bld 0.6(L) 0.7 - 2.0 mmol/L Blood 05/14/2025 5:26 AM CDT 05/14/2025 5:51 AM CDT us Bar Gamble MD LAB BLOOD ORDERABLES Final R esult DULCE MARIA [facility] Department [place] [employer] [place] [address] * (ABNORMAL) aPTT (05/14/2025 5:26 AM CDT) aPTT 63(H) 28 - 38 sec Comment: Interpretive Data Heparin therapeutic range: 66.0 - 100.0 seconds. Range based on correlation with therapeutic heparin activity range of 0.3 - 0.7 Units/mL. Current interpretive data was last revised on 2023. Blood 05/14/2025 5:26 AM CDT 05/14/2025 6:01 AM CDT Narrative [facility] - 05/14/2025 7:34 AM CDT STAT [...] drawn peripherally (not from CVC). Libia Suarez N[facility] LAB BLOOD ORDERABLES Final Re sult [facility] Department [place] [address] * (ABNORMAL) CBC without differential (05/14/2025 5:26 AM CDT) WBC 8.46 3.80 - 9.90 K/cumm Hgb 10.3(L) 13.0 - 17.5 g/dL [facility] Hct 32.0(L) 38.9 - 50.3 % [facility] Plt 172 150 - 400 K/cumm [facility] MPV 11.8 9.1 - 12.3 fL [facility] RBC 3.83(L) 4.30 - 5.80 M/cumm [facility] MCV 83.6 81.3 - 96.4 fL [facility] MCH 26.9(L) 27.1 - 33.3 pg [facility] MCHC 32.2(L) 32.3 - 35.7 g/dL [facility] RDW CV 15.4(H) 11.1 - 14.9 % [facility] RDW SD 46.8 35.7 - 48.1 fL [facility] NRBC abs 0.00 0.00 - 0.01 K/cumm [facility] Blood 05/14/2025 5:26 AM CDT 05/14/2025 6:02 AM CDT Bar Gamble MD LAB BLOOD ORDERABLES Final R esult Performing Organization Address City/[facility] Co de Phone Number [facility] [place] [address] * Magnesium (05/14/2025 5:26 AM CDT) Pathologist [facility] Magnesium 2.2 1.4 - 2.5 mg/dL Blood 05/14/2025 5:26 AM CDT 05/14/2025 6:02 AM CDT Bar Gamble MD LAB BLOOD ORDERABLES Final R esult Performing Organization Address [facility] de Phone Number [facility] [place] [employer] [place] [address] * (ABNORMAL) Hepatic function panel (05/14/2025 5:26 AM CDT) Pathologist [facility] Bilirubin, total 0.6 0.1 - 1.2 mg/dL Bilirubin, direct 0.3 0.1 - 0.3 mg/dL [facility] Protein, pl 5.9(L) 6.5 - 8.5 g/dL [facility] Albumin 3.7 3.5 - 5.0 g/dL [facility] Alk phos 269(H) 40 - 130 Units/L [facility] ALT 19 7 - 55 Units/L [facility] AST 22 10 - 50 Units/L [facility] Blood 05/14/2025 5:26 AM CDT 05/14/2025 6:02 AM CDT Result [facility] Bar Gamble MD LAB BLOOD ORDERABLES Final R esult [facility] [place] [address] * (ABNORMAL) Basic metabolic panel (05/14/2025 5:26 AM CDT) Sodium 139 135 - 145 mmol/L Potassium, pl 3.5 3.3 - 4.9 mmol/L [facility] Chloride 101 97 - 110 mmol/L [facility] CO2 28 22 - 32 mmol/L [facility] Anion gap 10 2 - 15 mmol/L [facility] BUN 42(H) 6 - 25 mg/dL [facility] Creatinine 1.34(H) 0.80 - 1.30 mg/dL [facility] Glucose 109 70 - 199 mg/dL [facility] Comment: Interpretive Data Fasting glucose >/= [...] 2022. Calcium 9.0 8.5 - 10.3 mg/dL [facility] Blood 05/14/2025 5:26 AM CDT 05/14/2025 6:02 AM CDT us Bar Gamble MD LAB BLOOD ORDERABLES Final R esult [facility] [place] [address] * XR Chest 1 View (05/14/2025 5:18 AM CDT) Anatomical Region Laterality Modality Body, Chest N/A Computed Radiogr aphy 05/14/2025 10:5 6 AM CDT Impressions 05/14/2025 11:22 AM CDT Comparison with 05/13/2025. Right internal jugular [place] catheter tip overlies a right lower lobe [...] IMPRESSION: Comparison with 05/13/2025. Right internal jugular [place] catheter tip overlies a right lower lobe [...] MD LAB BLOOD ORDERABLES Final R esult [facility] [place] [address] * Hemoglobin total, pulmonary artery (05/13/2025 9:15 PM CDT) Hemoglobin total, PA 13.8 13.0 - 17.5 g/dL Blood 05/13/2025 9:15 PM CDT 05/13/2025 10:13 PM CDT us Bar Gamble MD LAB BLOOD [place] [address] * Potassium, whole blood (05/13/2025 9:15 PM CDT) [facility] Potassium, bld 4.1 3.3 - 4.9 mmol/L Blood 05/13/2025 9:15 PM CDT 05/13/2025 10:13 PM CDT us Kendal Block MD LAB BLOOD ORDERABLES Final R esult Performing Organization Address City/[facility]/[place] [address] * Lactate, whole blood (05/13/2025 9:15 PM CDT) [facility] Lactate, bld 1.0 0.7 - 2.0 mmol/L Blood 05/13/2025 9:15 PM CDT 05/13/2025 10:13 PM CDT us Bar Gamble MD LAB BLOOD [place] [address] * Oxyhemoglobin, pulmonary artery (05/13/2025 4:34 PM CDT) Oxyhemoglobin, PA 54.3 % Comment: Interpretive Data No reference range established. Current interpretive data was last revised 2020. Blood 05/13/2025 4:34 PM CDT 05/13/2025 4:48 PM CDT us Bar aGmble MD LAB BLOOD ORDERABLES [facility] [place] [address] * (ABNORMAL) Hemoglobin total, pulmonary artery (05/13/2025 4:34 PM CDT) Hemoglobin total, PA 11.5(L) 13.0 - 17.5 g/dL Blood 05/13/2025 4:34 PM CDT 05/13/2025 4:48 PM CDT us Bar Gamble MD LAB BLOOD ORDERABLES Final R esult Performing Organization Address City/[facility] Co de Phone Number [facility] Department [place] [address] * eGFR (05/13/2025 4:34 PM CDT) eGFR [...] ORDERABLES Final R esult Performing Organization Address City/[facility] Co de Phone Number [facility] [place] [employer] [place] [address] * Lactate, whole blood (05/13/2025 4:34 PM CDT) Lactate, bld 0.9 0.7 - 2.0 mmol/L Blood 05/13/2025 4:34 PM CDT 05/13/2025 4:48 PM CDT us Bar Gamble MD LAB BLOOD ORDERABLES Final R esult Performing Organization Address [facility] de Phone Number [facility] [employer] [place] [address] * Magnesium (05/13/2025 4:34 PM CDT) Magnesium 2.1 1.4 - 2.5 mg/dL Blood 05/13/2025 4:34 PM CDT 05/13/2025 4:53 PM CDT Bar Gmable MD LAB BLOOD ORDERABLES Final R esult Performing Organization Address [facility] de Phone Number [facility] [employer] [place], [place] [id number] * (ABNORMAL) Basic metabolic panel (05/13/2025 4:34 PM CDT) Sodium 137 135 - 145 mmol/L Potassium, pl 4.0 3.3 - 4.9 mmol/L [facility] Chloride 101 97 - 110 mmol/L [facility] CO2 26 22 - 32 mmol/L [facility] Anion gap 10 2 - 15 mmol/L [facility] BUN 42(H) 6 - 25 mg/dL [facility] Creatinine 1.31(H) 0.80 - 1.30 mg/dL [facility] Glucose 139 70 - 199 mg/dL [facility] Comment: Interpretive Data Fasting glucose >/= [...] 2022. Calcium 9.2 8.5 - 10.3 mg/dL [facility] Blood 05/13/2025 4:34 PM CDT 05/13/2025 4:53 PM CDT us Bar Gamble MD LAB BLOOD ORDERABLES Final R esult Performing Organization Address City/[facility]/ZIP Co de Phone Number [facility] [place] [address] * Potassium, whole blood (05/13/2025 11:24 AM CDT) Pathologist [facility] Potassium, bld 4.0 3.3 - 4.9 mmol/L Blood 05/13/2025 11:2 4 AM CDT 05/13/2025 11:38 AM CDT us Bar Gamble MD LAB BLOOD ORDERABLES Final R esult [facility] Department [place] [employer] [place] [address] * Magnesium (05/13/2025 11:24 AM CDT) Magnesium 2.3 1.4 - 2.5 mg/dL Blood 05/13/2025 11:2 4 AM CDT 05/13/2025 11:50 AM CDT us Bar Gamble MD LAB BLOOD ORDERABLES Final R esult Performing Organization Address [facility] Co de Phone Number [facility] [place] [address] * Oxyhemoglobin, pulmonary artery (05/13/2025 11:17 AM CDT) Oxyhemoglobin, PA 57.5 % Comment: Interpretive Data No reference range established. Current interpretive data was last revised 2020. Blood 05/13/2025 11:1 7 AM CDT 05/13/2025 11:38 AM CDT us Bar Gamble MD LAB BLOOD ORDERABLES Final R esult Performing Organization Address [facility] [place] [address] * (ABNORMAL) Hemoglobin total, pulmonary artery (05/13/2025 11:17 AM CDT) Hemoglobin total, PA 11.1(L) 13.0 - 17.5 g/dL Blood 05/13/2025 11:1 7 AM CDT 05/13/2025 11:38 AM CDT us Bar Gamble MD LAB BLOOD ORDERABLES Final R esult Performing Organization Address [facility] Co de Phone Number [facility] [place] [address] * Lactate, whole blood (05/13/2025 11:17 AM CDT) Lactate, bld 0.7 0.7 - 2.0 mmol/L Blood 05/13/2025 11:1 7 AM CDT 05/13/2025 11:38 AM CDT Bar Gamble MD LAB BLOOD ORDERABLES Final R esult [facility] [place] [address] * XR Chest 1 View (05/13/2025 6:26 AM CDT) Anatomical Region Laterality Modality Body, Chest N/A Computed Radiogr aphy 05/13/2025 10:5 5 AM CDT Impressions 05/13/2025 12:43 PM CDT Comparison with 05/12/2025. Right internal jugular [place] catheter tip overlies the right infrahilar region [...] IMPRESSION: Comparison with 05/12/2025. Right internal jugular [place] catheter tip overlies the right infrahilar region [...] Performing Organization Address [facility] Co de Phone Number [facility] Department [place] [employer] [place] [address] * (ABNORMAL) Hemoglobin total, pulmonary artery (05/13/2025 5:46 AM CDT) Hemoglobin total, PA 10.9(L) 13.0 - 17.5 g/dL Blood 05/13/2025 5:46 AM CDT 05/13/2025 5:53 AM CDT us Bar Gamble MD LAB BLOOD ORDERABLES Final R esult [facility] Department [place] [employer] [place] [address] * eGFR (05/13/2025 5:46 AM CDT) eGFR [...] Performing Organization Address [facility] Co de Phone Number [facility] Department [place] [address] * (ABNORMAL) Lactate, whole blood (05/13/2025 5:46 AM CDT) Lactate, bld 0.6(L) 0.7 - 2.0 mmol/L Blood 05/13/2025 5:46 AM CDT 05/13/2025 5:53 AM CDT us Zev Cowart MD PhD LAB BLOOD ORDERABLES Fi nal Result Performing Organization Address [facility]/ZIP Co de Phone Number [facility] Department [place] [address] * (ABNORMAL) aPTT (05/13/2025 5:46 AM CDT) aPTT 65(H) 28 - 38 sec Comment: Interpretive Data Heparin therapeutic range: 66.0 - 100.0 seconds. Range based on correlation with therapeutic heparin activity range of 0.3 - 0.7 Units/mL. Current interpretive data was last revised on 2023. Blood 05/13/2025 5:46 AM CDT 05/13/2025 5:59 AM CDT Narrative [facility] - 05/13/2025 6:22 AM CDT STAT [...] drawn peripherally (not from [facility]). Libia Suarez NUR[facility] A[facility] LAB BLOOD ORDERABLES Final Re sult [facility] One [facility] [place] [address] * (ABNORMAL) CBC without differential (05/13/2025 5:46 AM CDT) WBC 9.41 3.80 - 9.90 K/cumm Hgb 10.6(L) 13.0 - 17.5 g/dL [facility] Hct 32.6(L) 38.9 - 50.3 % [facility] Plt 190 150 - 400 K/cumm [facility] MPV 12.2 9.1 - 12.3 fL [facility] RBC 3.90(L) 4.30 - 5.80 M/cumm [facility] MCV 83.6 81.3 - 96.4 fL [facility] MCH 27.2 27.1 - 33.3 pg [facility] MCHC 32.5 32.3 - 35.7 g/dL [facility] RDW CV 15.6(H) 11.1 - 14.9 % [facility] RDW SD 47.3 35.7 - 48.1 fL [facility] NRBC abs 0.00 0.00 - 0.01 K/cumm [facility] Blood 05/13/2025 5:46 AM CDT 05/13/2025 6:00 AM CDT Bar Gamble MD LAB BLOOD ORDERABLES Final R esult Performing Organization Address [facility] Co de Phone Number [facility] [employer] [place] [address] * Phosphorus (05/13/2025 5:46 AM CDT) Phosphorus, pl 3.3 2.3 - 4.5 mg/dL Blood 05/13/2025 5:46 AM CDT 05/13/2025 6:00 AM CDT us Zev Cowart MD PhD LAB BLOOD ORDERABLES Fi nal Result Performing Organization Address [facility] de Phone Number [facility] [employer] [place] [address] * Magnesium (05/13/2025 5:46 AM CDT) Magnesium 2.1 1.4 - 2.5 mg/dL Blood 05/13/2025 5:46 AM CDT 05/13/2025 6:00 AM CDT Bar Gamble MD LAB BLOOD ORDERABLES Final R esult Performing Organization Address [facility] [place] [address] * (ABNORMAL) Hepatic function panel (05/13/2025 5:46 AM CDT) Bilirubin, total 0.7 0.1 - 1.2 mg/dL Bilirubin, direct 0.3 0.1 - 0.3 mg/dL [facility] Protein, pl 5.8(L) 6.5 - 8.5 g/dL [facility] Albumin 3.5 3.5 - 5.0 g/dL [facility] Alk phos 255(H) 40 - 130 Units/L [facility] ALT 18 7 - 55 Units/L [facility] AST 21 10 - 50 Units/L [facility] Blood 05/13/2025 5:46 AM CDT 05/13/2025 6:00 AM CDT us Bar Gamble MD LAB BLOOD ORDERABLES Final R esult [facility] One [facility] [place] [address] * (ABNORMAL) Basic metabolic panel (05/13/2025 5:46 AM CDT) Sodium 138 135 - 145 mmol/L Potassium, pl 3.5 3.3 - 4.9 mmol/L [facility] Chloride 103 97 - 110 mmol/L [facility] CO2 24 22 - 32 mmol/L [facility] Anion gap 11 2 - 15 mmol/L [facility] BUN 40(H) 6 - 25 mg/dL [facility] Creatinine 1.32(H) 0.80 - 1.30 mg/dL [facility] Glucose 103 70 - 199 mg/dL [facility] Comment: Interpretive Data Fasting glucose >/= [...] 2022. Calcium 8.5 8.5 - 10.3 mg/dL [facility] Blood 05/13/2025 5:46 AM CDT 05/13/2025 6:00 AM CDT us Bar Gamble MD LAB BLOOD ORDERABLES Final R esult Performing Organization Address City/[facility] Co de Phone Number [facility] [place] [address] * Oxyhemoglobin, pulmonary artery (05/12/2025 4:25 PM CDT) Oxyhemoglobin, PA 59.8 % Comment: Interpretive Data No reference range established. Current interpretive data was last revised 2020. Blood 05/12/2025 4:25 PM CDT 05/12/2025 4:35 PM CDT us Bar Gamble MD LAB BLOOD ORDERABLES Final R esult Performing Organization Address [facility] Co de Phone Number [facility] [place] [address] * (ABNORMAL) Hemoglobin total, pulmonary artery (05/12/2025 4:25 PM CDT) Hemoglobin total, PA 11.5(L) 13.0 - 17.5 g/dL Blood 05/12/2025 4:25 PM CDT 05/12/2025 4:35 PM CDT us Bar Gamble MD LAB BLOOD ORDERABLES Final R esult Performing Organization Address [facility] Co de Phone Number [facility] [place] [address] * (ABNORMAL) eGFR (05/12/2025 4:25 PM CDT) [...] Performing Organization Address [facility] de Phone Number [facility] Department [place] [address] * Lactate, whole blood (05/12/2025 4:25 PM CDT) Lactate, bld 0.9 0.7 - 2.0 mmol/L Blood 05/12/2025 4:25 PM CDT 05/12/2025 4:35 PM CDT us Bar Gamble MD LAB BLOOD ORDERABLES Final R esult Performing Organization Address [facility] Co de Phone Number [facility] Department [place] [address] * Magnesium (05/12/2025 4:25 PM CDT) Magnesium 2.0 1.4 - 2.5 mg/dL Blood 05/12/2025 4:25 PM CDT 05/12/2025 4:42 PM CDT Bar Gamble MD LAB BLOOD ORDERABLES Final R esult Performing Organization Address [facility] Co de Phone Number [facility] Department [place] [address] * (ABNORMAL) Basic metabolic panel (05/12/2025 4:25 PM CDT) Pathologist [facility] Sodium 137 135 - 145 mmol/L Potassium, pl 4.1 3.3 - 4.9 mmol/L [facility] Chloride 105 97 - 110 mmol/L [facility] CO2 22 22 - 32 mmol/L [facility] Anion gap 10 2 - 15 mmol/L [facility] BUN 41(H) 6 - 25 mg/dL [facility] Creatinine 1.46(H) 0.80 - 1.30 mg/dL [facility] Glucose 112 70 - 199 mg/dL [facility] Comment: Interpretive Data Fasting glucose >/= [...] 2022. Calcium 8.4(L) 8.5 - 10.3 mg/dL [facility] Blood 05/12/2025 4:25 PM CDT 05/12/2025 4:42 PM CDT Bar Gamble MD LAB BLOOD ORDERABLES Final R esult [facility] [place] [address] * Oxyhemoglobin, pulmonary artery (05/12/2025 10:26 AM CDT) Pathologist [facility] Oxyhemoglobin, PA 51.5 % Comment: Interpretive Data No reference range established. Current interpretive data was last revised 2020. Blood 05/12/2025 10:2 6 AM CDT 05/12/2025 10:40 AM CDT us Bar Gamble MD LAB BLOOD ORDERABLES Final R esult Performing Organization Address [facility] Co de Phone Number [facility] [place] [address] * (ABNORMAL) Hemoglobin total, pulmonary artery (05/12/2025 10:26 AM CDT) Pathologist [facility] Hemoglobin total, PA 11.0(L) 13.0 - 17.5 g/dL Blood 05/12/2025 10:2 6 AM CDT 05/12/2025 10:40 AM CDT us Bar Gamble MD LAB BLOOD ORDERABLES Final R esult Performing Organization Address [facility] de Phone Number [facility] [place] [address] * Lactate, whole blood (05/12/2025 10:26 AM CDT) Pathologist [facility] Lactate, bld 1.1 0.7 - 2.0 mmol/L Blood 05/12/2025 10:2 6 AM CDT 05/12/2025 10:40 AM CDT us Bar Gamble MD LAB BLOOD ORDERABLES Final R esult Performing Organization Address [facility] Co de Phone Number [facility] Department [place] [address] * Antibody identification (05/12/2025 5:45 AM CDT) Pathologist [facility] Antibody ID 1 Anti-CD38 Comment:Panreactive -CD38 on reagent RBCs reacting with anti-CD38 therapy. DTT treatment removes cell surface CD38 and allows detection of common clinically significant antibodies except those against Dilma antigens. TRANSFUSION 2015;[id number] Blood 05/12/2025 5:45 AM CDT 05/12/2025 5:46 AM CDT us Libia Suarez NP LAB BLOOD BANK TEST ORDERABLE S Final Result [facility] Department [place] [address] * XR Chest 1 View (05/12/2025 5:42 [...] ABO Rh O Positive Poppy, indirect Positive(A) [facility] Blood 05/12/2025 4:19 AM CDT 05/12/2025 4:43 AM CDT Narrative DULCE MARIA ARANDA - 05/12/2025 5:46 AM CDT Has the patient had Daratumumab or Isatuximab in the past 6 months?->Unknown Libia Suarez NP LAB BLOOD BANK TEST ORDERABLE S Final Result Performing Organization Address [facility]/ZIP Co de Phone Number [facility] [place] [address] * (ABNORMAL) aPTT (05/12/2025 4:17 AM CDT) aPTT 61(H) 28 - 38 sec Comment: Interpretive Data Heparin therapeutic range: 66.0 - 100.0 seconds. Range based on correlation with therapeutic heparin activity range of 0.3 - 0.7 Units/mL. Current interpretive data was last revised on 2023. Blood 05/12/2025 4:17 AM CDT 05/12/2025 4:35 AM CDT Narrative [facility] - 05/12/2025 4:59 AM CDT STAT PTT [...] LAB BLOOD ORDERABLES Final Re sult [facility] [place] [address] * Oxyhemoglobin, pulmonary artery (05/12/2025 4:16 AM CDT) Pathologist [facility] Oxyhemoglobin, PA 58.5 % Comment: Interpretive Data No reference range established. Current interpretive data was last revised 2020. Blood 05/12/2025 4:16 AM CDT 05/12/2025 4:28 AM CDT Bar Gamble MD LAB BLOOD ORDERABLES Final R esult Performing Organization Address [facility] [place] [address] * (ABNORMAL) Hemoglobin total, pulmonary artery (05/12/2025 4:16 AM CDT) [facility] Hemoglobin total, PA 11.2(L) 13.0 - 17.5 g/dL Blood 05/12/2025 4:16 AM CDT 05/12/2025 4:28 AM CDT us Bar Gamble MD LAB BLOOD ORDERABLES Final R esult Performing Organization Address [facility] Co de Phone Number [facility] [place] [address] * eGFR (05/12/2025 4:16 AM CDT) eGFR [...] MD LAB BLOOD ORDERABLES Final R esult [facility] Department [place] [address] * (ABNORMAL) CBC without differential (05/12/2025 4:16 AM CDT) WBC 8.49 3.80 - 9.90 K/cumm Hgb 10.5(L) 13.0 - 17.5 g/dL [facility] Hct 32.0(L) 38.9 - 50.3 % [facility] Plt 181 150 - 400 K/cumm [facility] MPV 12.2 9.1 - 12.3 fL [facility] RBC 3.84(L) 4.30 - 5.80 M/cumm [facility] MCV 83.3 81.3 - 96.4 fL [facility] MCH 27.3 27.1 - 33.3 pg [facility] MCHC 32.8 32.3 - 35.7 g/dL [facility] RDW CV 15.6(H) 11.1 - 14.9 % [facility] RDW SD 47.5 35.7 - 48.1 fL [facility] NRBC abs 0.00 0.00 - 0.01 K/cumm [facility] Blood 05/12/2025 4:16 AM CDT 05/12/2025 4:37 AM CDT us Bar Gamble MD LAB BLOOD ORDERABLES Final R esult [facility] [place] [address] * Magnesium (05/12/2025 4:16 AM CDT) Pathologist [facility] Magnesium 2.2 1.4 - 2.5 mg/dL Blood 05/12/2025 4:16 AM CDT 05/12/2025 4:32 AM CDT us Bar Gamble MD LAB BLOOD ORDERABLES Final R esult Performing Organization Address City/[facility]/ZIP Co de Phone Number [facility] [place] [address] * (ABNORMAL) Hepatic function panel (05/12/2025 4:16 AM CDT) [facility] Bilirubin, total 0.6 0.1 - 1.2 mg/dL Bilirubin, direct 0.3 0.1 - 0.3 mg/dL [facility] Protein, pl 5.8(L) 6.5 - 8.5 g/dL [facility] Albumin 3.7 3.5 - 5.0 g/dL [facility] Alk phos 274(H) 40 - 130 Units/L [facility] ALT 21 7 - 55 Units/L [facility] AST 23 10 - 50 Units/L [facility] Blood 05/12/2025 4:16 AM CDT 05/12/2025 4:32 AM CDT us Bar Gamble MD LAB BLOOD [place] [address] * (ABNORMAL) Basic metabolic panel (05/12/2025 4:16 AM CDT) Pathologist [facility] Sodium 136 135 - 145 mmol/L Potassium, pl 4.4 3.3 - 4.9 mmol/L [facility] Chloride 101 97 - 110 mmol/L [facility] CO2 26 22 - 32 mmol/L [facility] Anion gap 9 2 - 15 mmol/L [facility] BUN 38(H) 6 - 25 mg/dL [facility] Creatinine 1.32(H) 0.80 - 1.30 mg/dL [facility] Glucose 107 70 - 199 mg/dL [facility] Comment: Interpretive Data Fasting glucose >/= [...] 2022. Calcium 9.2 8.5 - 10.3 mg/dL [facility] Blood 05/12/2025 4:16 AM CDT 05/12/2025 4:32 AM CDT us Bar Gamble MD LAB BLOOD ORDERABLES Final R esult Performing Organization Address City/[facility]/ZIP Co de Phone Number [facility] Department [place] [address] * Oxyhemoglobin, pulmonary artery (05/11/2025 4:20 PM CDT) Oxyhemoglobin, PA 59.9 % Comment: Interpretive Data No reference range established. Current interpretive data was last revised 2020. Blood 05/11/2025 4:20 PM CDT 05/11/2025 4:29 PM CDT us Bar Gamble MD LAB BLOOD ORDERABLES Final R esult [facility] [place] [address] * (ABNORMAL) Hemoglobin total, pulmonary artery (05/11/2025 4:20 PM CDT) Hemoglobin total, PA 10.7(L) 13.0 - 17.5 g/dL Blood 05/11/2025 4:20 PM CDT 05/11/2025 4:29 PM CDT us Bar Gamble MD LAB BLOOD ORDERABLES Final R esult Performing Organization Address City/[facility]/ZIP Co de Phone Number [facility] [place] [address] * Potassium, whole blood (05/11/2025 4:20 PM CDT) Pathologist [facility] Potassium, bld 3.9 3.3 - 4.9 mmol/L Blood 05/11/2025 4:20 PM CDT 05/11/2025 4:29 PM CDT us Bar Gamble MD LAB BLOOD ORDERABLES Final R esult Performing Organization Address City/[facility]/ZIP Co de Phone Number [facility] Department [place] [address] * eGFR (05/11/2025 4:20 PM CDT) eGFR [...] Performing Organization Address [facility] Co de Phone Number [facility] [employer] [place] [address] * (ABNORMAL) Lactate, whole blood (05/11/2025 4:20 PM CDT) Lactate, bld 0.6(L) 0.7 - 2.0 mmol/L Blood 05/11/2025 4:20 PM CDT 05/11/2025 4:29 PM CDT Bar Gamble MD LAB BLOOD ORDERABLES Final R esult Performing Organization Address [facility] Co de Phone Number [facility] Department [place] [employer] [place] [address] * Magnesium (05/11/2025 4:20 PM CDT) Magnesium 2.1 1.4 - 2.5 mg/dL Blood 05/11/2025 4:20 PM CDT 05/11/2025 4:35 PM CDT Bar Gamble MD LAB BLOOD ORDERABLES Final R esult Performing Organization Address [facility] Co de Phone Number [facility] [place] [address] * (ABNORMAL) Basic metabolic panel (05/11/2025 4:20 PM CDT) Sodium 136 135 - 145 mmol/L Potassium, pl 4.3 3.3 - 4.9 mmol/L [facility] Chloride 103 97 - 110 mmol/L [facility] CO2 23 22 - 32 mmol/L [facility] Anion gap 10 2 - 15 mmol/L [facility] BUN 38(H) 6 - 25 mg/dL [facility] Creatinine 1.34(H) 0.80 - 1.30 mg/dL [facility] Glucose 113 70 - 199 mg/dL [facility] Comment: Interpretive Data Fasting glucose >/= [...] 2022. Calcium 8.7 8.5 - 10.3 mg/dL [facility] Blood 05/11/2025 4:20 PM CDT 05/11/2025 4:35 PM CDT us Bar Gamble MD LAB BLOOD ORDERABLES Final R esult [facility] Department [place] [address] * Oxyhemoglobin, pulmonary artery (05/11/2025 10:12 AM CDT) Oxyhemoglobin, PA 51.5 % Comment: Interpretive Data No reference range established. Current interpretive data was last revised 2020. Blood 05/11/2025 10:1 2 AM CDT 05/11/2025 10:24 AM CDT us Bar Gamble MD LAB BLOOD ORDERABLES Final R esult Performing Organization Address [facility] Co de Phone Number [facility] [employer] [place] [address] * (ABNORMAL) Hemoglobin total, pulmonary artery (05/11/2025 10:12 AM CDT) Hemoglobin total, PA 10.5(L) 13.0 - 17.5 g/dL Blood 05/11/2025 10:1 2 AM CDT 05/11/2025 10:24 AM CDT Bar Gamble MD LAB BLOOD ORDERABLES Final R esult Performing Organization Address [facility] Co de Phone Number [facility] [employer] [place] [address] * Lactate, whole blood (05/11/2025 10:12 AM CDT) Lactate, bld 0.8 0.7 - 2.0 mmol/L Blood 05/11/2025 10:1 2 AM CDT 05/11/2025 10:24 AM CDT Bar Gamble MD LAB BLOOD ORDERABLES Final R esult Performing Organization Address [facility] Co de Phone Number [facility] [place] [address] * (ABNORMAL) aPTT (05/11/2025 10:12 AM CDT) aPTT 62(H) 28 - 38 sec Comment: Interpretive Data Heparin therapeutic range: 66.0 - 100.0 seconds. Range based on correlation with therapeutic heparin activity range of 0.3 - 0.7 Units/mL. Current interpretive data was last revised on 2023. Blood 05/11/2025 10:1 2 AM CDT 05/11/2025 10:30 AM CDT [place] [facility] - 05/11/2025 10:59 AM CDT STAT [...] drawn peripherally (not from CVC). Libia Suarez NUR[facility] LAB BLOOD ORDERABLES Final Re sult [facility] Department [place] [address] * (ABNORMAL) aPTT (05/11/2025 8:20 AM CDT) aPTT 60(H) 28 - 38 sec Comment: Interpretive Data Heparin therapeutic range: 66.0 - 100.0 seconds. Range based on correlation with therapeutic heparin activity range of 0.3 - 0.7 Units/mL. Current interpretive data was last revised on 2023. Blood 05/11/2025 8:20 AM CDT 05/11/2025 8:40 AM CDT [place] [facility] - 05/11/2025 9:02 AM CDT STAT PTT [...] peripherally (not from CVC). us Libia Suarez N[facility] LAB BLOOD ORDERABLES Final Re sult [facility] MARIA HAIR [facility] Department [place] [address] * XR Chest 1 View (05/11/2025 5:34 AM CDT) Anatomical Region Laterality Modality Body, Chest N/A Computed Radiogr aphy 05/11/2025 7:28 AM CDT Impressions 05/11/2025 10:39 AM CDT The current study is compared with the prior radiograph dated 05/10/2025 [place] catheter tip overlies a right lower lobe [...] compared with the prior radiograph dated 05/10/2025 [place] catheter tip overlies a right lower lobe [...] lt * eGFR (05/11/2025 5:00 AM CDT) [facility] eGFR 62 >=60 mL/min/1. 73 m2 Comment: [...] MD LAB BLOOD ORDERABLES Final R esult [facility] Department [place] [address] * (ABNORMAL) CBC without differential (05/11/2025 5:00 AM CDT) [facility] WBC 9.06 3.80 - 9.90 K/cumm Hgb 10.4(L) 13.0 - 17.5 g/dL [facility] Hct 31.9(L) 38.9 - 50.3 % [facility] Plt 177 150 - 400 K/cumm [facility] MPV 12.0 9.1 - 12.3 fL [facility] RBC 3.87(L) 4.30 - 5.80 M/cumm [facility] MCV 82.4 81.3 - 96.4 fL [facility] MCH 26.9(L) 27.1 - 33.3 pg [facility] MCHC 32.6 32.3 - 35.7 g/dL [facility] RDW CV 15.6(H) 11.1 - 14.9 % [facility] RDW SD 47.5 35.7 - 48.1 fL [facility] NRBC abs 0.00 0.00 - 0.01 K/cumm [facility] Blood 05/11/2025 5:00 AM CDT 05/11/2025 5:10 AM CDT Bar Gamble MD LAB BLOOD ORDERABLES Final R esult Performing Organization Address [facility] Co de Phone Number [facility] Department [place] [address] * Phosphorus (05/11/2025 5:00 AM CDT) Phosphorus, pl 3.4 2.3 - 4.5 mg/dL Blood 05/11/2025 5:00 AM CDT 05/11/2025 5:09 AM CDT us Zev Cowart MD PhD LAB BLOOD ORDERABLES Fi nal Result Performing Organization Address [facility] de Phone Number [facility] Department [place] [address] * Magnesium (05/11/2025 5:00 AM CDT) Magnesium 2.1 1.4 - 2.5 mg/dL Blood 05/11/2025 5:00 AM CDT 05/11/2025 5:09 AM CDT Bar Gamble MD LAB BLOOD ORDERABLES Final R esult Performing Organization Address City/[facility] de Phone Number [facility]ERNER [facility] Department [place] [address] * (ABNORMAL) Hepatic function panel (05/11/2025 5:00 AM CDT) Pathologist [facility] Bilirubin, total 0.6 0.1 - 1.2 mg/dL Bilirubin, direct 0.3 0.1 - 0.3 mg/dL [facility] Protein, pl 5.5(L) 6.5 - 8.5 g/dL [facility] Albumin 3.5 3.5 - 5.0 g/dL [facility] Alk phos 254(H) 40 - 130 Units/L [facility] ALT 20 7 - 55 Units/L [facility] AST 22 10 - 50 Units/L [facility] Blood 05/11/2025 5:00 AM CDT 05/11/2025 5:09 AM CDT Bar Gamble MD LAB BLOOD ORDERABLES Final R esult [facility] MARIA [facility] Department [place] [address] * (ABNORMAL) Basic metabolic panel (05/11/2025 5:00 AM CDT) [facility] Sodium 135 135 - 145 mmol/L Potassium, pl 3.4 3.3 - 4.9 mmol/L [facility] Chloride 101 97 - 110 mmol/L [facility] CO2 26 22 - 32 mmol/L [facility] Anion gap 8 2 - 15 mmol/L [facility] BUN 37(H) 6 - 25 mg/dL [facility] Creatinine 1.30 0.80 - 1.30 mg/dL [facility] Glucose 104 70 - 199 mg/dL [facility] Comment: Interpretive Data Fasting glucose >/= [...] 2022. Calcium 8.6 8.5 - 10.3 mg/dL [facility] Blood 05/11/2025 5:00 AM CDT 05/11/2025 5:09 AM CDT Bar Gamble MD LAB BLOOD ORDERABLES Final R esult Performing Organization Address City/[facility] Co de Phone Number [facility] [employer] [place] [address] * Oxyhemoglobin, pulmonary artery (05/11/2025 4:47 AM CDT) Oxyhemoglobin, PA 59.8 % Comment: Interpretive Data No reference range established. Current interpretive data was last revised 2020. Blood 05/11/2025 4:47 AM CDT 05/11/2025 5:06 AM CDT Bar Gamble MD LAB BLOOD ORDERABLES Final R esult Performing Organization Address [facility] Co de Phone Number [facility] [employer] [place] [address] * (ABNORMAL) Hemoglobin total, pulmonary artery (05/11/2025 4:47 AM CDT) Hemoglobin total, PA 10.7(L) 13.0 - 17.5 g/dL Blood 05/11/2025 4:47 AM CDT 05/11/2025 5:06 AM CDT us Bar Gamble MD LAB BLOOD ORDERABLES Final R esult Performing Organization Address City/[facility] Co de Phone Number [facility] [employer] [place] [address] * (ABNORMAL) Lactate, whole blood (05/11/2025 4:47 AM CDT) Lactate, bld 0.6(L) 0.7 - 2.0 mmol/L Blood 05/11/2025 4:47 AM CDT 05/11/2025 5:06 AM CDT Bar Gamble MD LAB BLOOD ORDERABLES Final R esult Performing Organization Address [facility]/ZIP Co de Phone Number [facility] Department [place] [address] * (ABNORMAL) aPTT (05/11/2025 3:46 AM CDT) Pathologist [facility] aPTT 44(H) 28 - 38 sec Comment: Interpretive Data Heparin therapeutic range: 66.0 - 100.0 seconds. Range based on correlation with therapeutic heparin activity range of 0.3 - 0.7 Units/mL. Current interpretive data was last revised on 2023. Blood 05/11/2025 3:46 AM CDT 05/11/2025 5:33 AM CDT Narrative [facility] - 05/11/2025 5:42 AM CDT STAT PTT [...] ORDERABLES Final Re sult Performing Organization Address [facility]/ZIP Co de Phone Number [facility] Department [place] [address] * Oxyhemoglobin, pulmonary artery (05/10/2025 5:40 PM CDT) Oxyhemoglobin, PA 51.6 % Comment: Interpretive Data No reference range established. Current interpretive data was last revised 2020. Blood 05/10/2025 5:40 PM CDT 05/10/2025 5:50 PM CDT us Bar Gamble MD LAB BLOOD ORDERABLES Final R esult DUL[facility] MARIA [facility] [place] [address] * (ABNORMAL) Hemoglobin total, pulmonary artery (05/10/2025 5:40 PM CDT) Pathologist [facility] Hemoglobin total, PA 11.7(L) 13.0 - 17.5 g/dL Blood 05/10/2025 5:40 PM CDT 05/10/2025 5:50 PM CDT us Bar Gamble MD LAB BLOOD ORDERABLES Final R esult DULCE MARIA [facility] Department [place] [address] * (ABNORMAL) eGFR (05/10/2025 5:40 PM CDT) [...] Performing Organization Address [facility] Co de Phone Number [facility] [employer] [place] [address] * (ABNORMAL) Lactate, whole blood (05/10/2025 5:40 PM CDT) Lactate, bld 0.6(L) 0.7 - 2.0 mmol/L Blood 05/10/2025 5:40 PM CDT 05/10/2025 5:50 PM CDT Bar Gamble MD LAB BLOOD ORDERABLES Final R esult Performing Organization Address [facility] Co de Phone Number [facility] [employer] [place] [address] * Magnesium (05/10/2025 5:40 PM CDT) Magnesium 2.2 1.4 - 2.5 mg/dL Blood 05/10/2025 5:40 PM CDT 05/10/2025 5:57 PM CDT us Bar Gamble MD LAB BLOOD ORDERABLES Final R esult Performing Organization Address [facility] Co de Phone Number [facility] Department [place] [address] * (ABNORMAL) Basic metabolic panel (05/10/2025 5:40 PM CDT) Pathologist [facility] Sodium 135 135 - 145 mmol/L Potassium, pl 3.9 3.3 - 4.9 mmol/L [facility] Chloride 98 97 - 110 mmol/L [facility] CO2 26 22 - 32 mmol/L [facility] Anion gap 11 2 - 15 mmol/L [facility] BUN 41(H) 6 - 25 mg/dL [facility] Creatinine 1.41(H) 0.80 - 1.30 mg/dL [facility] Glucose 141 70 - 199 mg/dL [facility] Comment: Interpretive Data Fasting glucose >/= [...] 2022. Calcium 9.2 8.5 - 10.3 mg/dL [facility] Blood 05/10/2025 5:40 PM CDT 05/10/2025 5:57 PM CDT Bar Gamble MD LAB BLOOD ORDERABLES Final R esult [facility] [place] [address] * Oxyhemoglobin, pulmonary artery (05/10/2025 12:30 PM CDT) Pathologist [facility] Oxyhemoglobin, PA 58.9 % Comment: Interpretive Data No reference range established. Current interpretive data was last revised 2020. Blood 05/10/2025 12:3 0 PM CDT 05/10/2025 12:39 PM CDT us Bar Gamble MD LAB BLOOD ORDERABLES Final R esult Performing Organization Address [facility] Co de Phone Number [facility] [place] [address] * (ABNORMAL) Hemoglobin total, pulmonary artery (05/10/2025 12:30 PM CDT) Hemoglobin total, PA 11.8(L) 13.0 - 17.5 g/dL Blood 05/10/2025 12:3 0 PM CDT 05/10/2025 12:39 PM CDT us Bar Gamble MD LAB BLOOD ORDERABLES Final R esult Performing Organization Address [facility] de Phone Number [facility] [place] [address] * Lactate, whole blood (05/10/2025 12:30 PM CDT) Lactate, bld 1.0 0.7 - 2.0 mmol/L Blood 05/10/2025 12:3 0 PM CDT 05/10/2025 12:39 PM CDT Bar Gamble MD LAB BLOOD ORDERABLES Final R esult Performing Organization Address [facility] Co de Phone Number [facility] [place] [address] * XR Chest 1 View (05/10/2025 7:02 AM CDT) Anatomical Region Laterality Modality Body, Chest N/A Digital Radiogra phy 05/10/2025 10:1 1 AM CDT Impressions 05/10/2025 10:24 AM CDT The current study is compared with the prior radiograph dated 05/09/2025. [place] catheter has been advanced and the tip [...] compared with the prior radiograph dated 05/09/2025. [place] catheter has been advanced and the tip [...] Final R esult [facility] [place] [address] * (ABNORMAL) Hemoglobin total, pulmonary artery (05/10/2025 4:34 AM CDT) Hemoglobin total, PA 10.6(L) 13.0 - 17.5 g/dL Blood 05/10/2025 4:34 AM CDT 05/10/2025 4:42 AM CDT us Bar Gamble MD LAB BLOOD ORDERABLES Final R esult Performing Organization Address [facility] Co de Phone Number DULCE MARIA [facility] [place] [address] * eGFR (05/10/2025 4:34 AM CDT) eGFR [...] MD LAB BLOOD ORDERABLES Final R esult [facility] [place] [address] * (ABNORMAL) Lactate, whole blood (05/10/2025 4:34 AM CDT) Pathologist [facility] Lactate, bld 0.5(L) 0.7 - 2.0 mmol/L Comment:Repeated and veriflulu d. Blood 05/10/2025 4:34 AM CDT 05/10/2025 4:42 AM CDT Bar Gamble MD LAB BLOOD ORDERABLES Final R esult [facility] Department [place] [address] * (ABNORMAL) aPTT (05/10/2025 4:34 AM CDT) Pathologist [facility] aPTT 61(H) 28 - 38 sec Comment: Interpretive Data Heparin therapeutic range: 66.0 - 100.0 seconds. Range based on correlation with therapeutic heparin activity range of 0.3 - 0.7 Units/mL. Current interpretive data was last revised on 2023. Blood 05/10/2025 4:34 AM CDT 05/10/2025 4:54 AM CDT Narrative [facility] - 05/10/2025 5:04 AM CDT STAT [...] peripherally (not from [facility]VC). us Libia Suarez NURSE FIRST AID LAB BLOOD ORDERABLES Final Re sult Performing Organization Address [facility] de Phone Number [facility] [place] [address] * (ABNORMAL) CBC without differential (05/10/2025 4:34 AM CDT) WBC 8.33 3.80 - 9.90 K/cumm Hgb 10.9(L) 13.0 - 17.5 g/dL [facility] Hct 33.0(L) 38.9 - 50.3 % [facility] Plt 176 150 - 400 K/cumm [facility] MPV 12.0 9.1 - 12.3 fL [facility] RBC 3.96(L) 4.30 - 5.80 M/cumm [facility] MCV 83.3 81.3 - 96.4 fL [facility] MCH 27.5 27.1 - 33.3 pg [facility] MCHC 33.0 32.3 - 35.7 g/dL [facility] RDW CV 15.4(H) 11.1 - 14.9 % [facility] RDW SD 47.1 35.7 - 48.1 fL [facility] NRBC abs 0.00 0.00 - 0.01 K/cumm [facility] Blood 05/10/2025 4:34 AM CDT 05/10/2025 4:45 AM CDT us Bar Gamble MD LAB BLOOD ORDERABLES Final R esult [facility] Department [place] [address] * Magnesium (05/10/2025 4:34 AM CDT) Pathologist [facility] Magnesium 2.3 1.4 - 2.5 mg/dL Blood 05/10/2025 4:34 AM CDT 05/10/2025 4:44 AM CDT Bar Gamble MD LAB BLOOD ORDERABLES Final R esult Performing Organization Address [facility] Co de Phone Number [facility] [employer] [place] [address] * (ABNORMAL) Hepatic function panel (05/10/2025 4:34 AM CDT) Bilirubin, total 0.6 0.1 - 1.2 mg/dL Bilirubin, direct 0.3 0.1 - 0.3 mg/dL [facility] Protein, pl 6.0(L) 6.5 - 8.5 g/dL [facility] Albumin 3.7 3.5 - 5.0 g/dL [facility] Alk phos 263(H) 40 - 130 Units/L [facility] ALT 21 7 - 55 Units/L [facility] AST 23 10 - 50 Units/L [facility] Blood 05/10/2025 4:34 AM CDT 05/10/2025 4:44 AM CDT Bar Gamble MD LAB BLOOD ORDERABLES Final R esult Performing Organization Address [facility] Co de Phone Number [facility] [place] [address] * (ABNORMAL) Basic metabolic panel (05/10/2025 4:34 AM CDT) Sodium 136 135 - 145 mmol/L Potassium, pl 4.0 3.3 - 4.9 mmol/L [facility] Chloride 99 97 - 110 mmol/L [facility] CO2 27 22 - 32 mmol/L [facility] Anion gap 10 2 - 15 mmol/L [facility] BUN 37(H) 6 - 25 mg/dL [facility] Creatinine 1.31(H) 0.80 - 1.30 mg/dL [facility] Glucose 111 70 - 199 mg/dL [facility] Comment: Interpretive Data Fasting glucose >/= [...] 2022. Calcium 9.6 8.5 - 10.3 mg/dL [facility] Blood 05/10/2025 4:34 AM CDT 05/10/2025 4:44 AM CDT us Bar Gamble MD LAB BLOOD ORDERABLES Final R esult Performing Organization Address [facility] Co de Phone Number [facility] Department [place] [address] * Oxyhemoglobin, pulmonary artery (05/09/2025 8:55 PM CDT) Oxyhemoglobin, PA 50.3 % Comment: Interpretive Data No reference range established. Current interpretive data was last revised 2020. Blood 05/09/2025 8:55 PM CDT 05/09/2025 9:06 PM CDT us Bar Gamble MD LAB BLOOD ORDERABLES Final R esult Performing Organization Address [facility] Co de Phone Number [facility] Department [place] [address] * (ABNORMAL) Hemoglobin total, pulmonary artery (05/09/2025 8:55 PM CDT) Hemoglobin total, PA 11.8(L) 13.0 - 17.5 g/dL Blood 05/09/2025 8:55 PM CDT 05/09/2025 9:06 PM CDT Bar Gamble MD LAB BLOOD ORDERABLES Final R esult Performing Organization Address City/[facility] Co de Phone Number [facility] [place] [address] * Lactate, whole blood (05/09/2025 8:55 PM CDT) Lactate, bld 1.1 0.7 - 2.0 mmol/L Blood 05/09/2025 8:55 PM CDT 05/09/2025 9:06 PM CDT us Bar Gamble MD LAB BLOOD ORDERABLES Final R esult Performing Organization Address [facility] de Phone Number [facility] [place] [address] * Oxyhemoglobin, pulmonary artery (05/09/2025 5:04 PM CDT) Oxyhemoglobin, PA 47.6 % Comment: Interpretive Data No reference range established. Current interpretive data was last revised 2020. Blood 05/09/2025 5:04 PM CDT 05/09/2025 5:27 PM CDT us Bar Gamble MD LAB BLOOD ORDERABLES Final R esult Performing Organization Address [facility] de Phone Number [facility] [place] [address] * (ABNORMAL) Hemoglobin total, pulmonary artery (05/09/2025 5:04 PM CDT) Hemoglobin total, PA 12.2(L) 13.0 - 17.5 g/dL Blood 05/09/2025 5:04 PM CDT 05/09/2025 5:27 PM CDT Bar Gamble MD LAB BLOOD ORDERABLES Final R esult Performing Organization Address [facility] Co de Phone Number CERNER [facility] Department [place] [address] * (ABNORMAL) eGFR (05/09/2025 5:04 PM CDT) [...] MD LAB BLOOD ORDERABLES Final R esult [facility] [place] [address] * Lactate, whole blood (05/09/2025 5:04 PM CDT) Pathologist [facility] Lactate, bld 1.1 0.7 - 2.0 mmol/L Blood 05/09/2025 5:04 PM CDT 05/09/2025 5:27 PM CDT us Bar Gamble MD LAB BLOOD ORDERABLES Final R esult [facility] Department [place] [address] * Magnesium (05/09/2025 5:04 PM CDT) [facility] Magnesium 2.3 1.4 - 2.5 mg/dL Blood 05/09/2025 5:04 PM CDT 05/09/2025 5:35 PM CDT Bar Gamble MD LAB BLOOD ORDERABLES Final R esult [facility] [place] [address] * (ABNORMAL) Basic metabolic panel (05/09/2025 5:04 PM CDT) [facility] Sodium 136 135 - 145 mmol/L Potassium, pl 4.8 3.3 - 4.9 mmol/L [facility] Chloride 98 97 - 110 mmol/L [facility] CO2 27 22 - 32 mmol/L [facility] Anion gap 11 2 - 15 mmol/L [facility] BUN 39(H) 6 - 25 mg/dL [facility] Creatinine 1.38(H) 0.80 - 1.30 mg/dL [facility] Glucose 143 70 - 199 mg/dL [facility] Comment: Interpretive Data Fasting glucose >/= [...] 2022. Calcium 9.6 8.5 - 10.3 mg/dL [facility] Blood 05/09/2025 5:04 PM CDT 05/09/2025 5:35 PM CDT us Bar Gamble MD LAB BLOOD ORDERABLES Final R esult DULCE MARIA [facility] Department [place] [address] * XR Chest 1 View (05/09/2025 5:25 AM CDT) Anatomical Region Laterality Modality Body, Chest N/A Digital Radiogra phy 05/09/2025 9:18 AM CDT Impressions 05/09/2025 11:15 AM CDT The current study is compared with the prior radiograph dated 05/08/2025. A [place] catheter is in place, tip overlies the [...] with the prior radiograph dated 05/08/2025. A [place] catheter is in place, tip overlies the [...] ORDERABLES Final R esult Performing Organization Address City/[facility] Co de Phone Number [facility] Department [place] [address] * (ABNORMAL) Hemoglobin total, pulmonary artery (05/09/2025 5:22 AM CDT) Hemoglobin total, PA 11.1(L) 13.0 - 17.5 g/dL Blood 05/09/2025 5:22 AM CDT 05/09/2025 5:29 AM CDT us Bar Gamble MD LAB BLOOD ORDERABLES Final R esult Performing Organization Address City/[facility] Co de Phone Number [facility] Department [place] [address] * (ABNORMAL) eGFR (05/09/2025 5:22 AM CDT) [...] Performing Organization Address [facility] Co de Phone Number [facility] [place] [address] * Lactate, whole blood (05/09/2025 5:22 AM CDT) Lactate, bld 0.7 0.7 - 2.0 mmol/L Blood 05/09/2025 5:22 AM CDT 05/09/2025 5:29 AM CDT us Bar Gamble MD LAB BLOOD ORDERABLES Final R esult Performing Organization Address [facility] Co de Phone Number [facility] Department [place] [employer] [place] [address] * (ABNORMAL) aPTT (05/09/2025 5:22 AM CDT) aPTT 60(H) 28 - 38 sec Comment: Interpretive Data Heparin therapeutic range: 66.0 - 100.0 seconds. Range based on correlation with therapeutic heparin activity range of 0.3 - 0.7 Units/mL. Current interpretive data was last revised on 2023. Blood 05/09/2025 5:22 AM CDT 05/09/2025 5:36 AM CDT Narrative [facility] - 05/09/2025 6:02 AM CDT STAT PTT [...] drawn peripherally (not from [facility]). Libia Suarez NURSE FIRST AID LAB BLOOD ORDERABLES Final Re sult Performing Organization Address [facility]/ZIP Co de Phone Number [facility] Department [place] [address] * (ABNORMAL) CBC without differential (05/09/2025 5:22 AM CDT) WBC 8.65 3.80 - 9.90 K/cumm Hgb 10.9(L) 13.0 - 17.5 g/dL [facility] Hct 33.0(L) 38.9 - 50.3 % [facility] Plt 172 150 - 400 K/cumm [facility] MPV 11.6 9.1 - 12.3 fL [facility] RBC 3.98(L) 4.30 - 5.80 M/cumm [facility] MCV 82.9 81.3 - 96.4 fL [facility] MCH 27.4 27.1 - 33.3 pg [facility] MCHC 33.0 32.3 - 35.7 g/dL [facility] RDW CV 15.7(H) 11.1 - 14.9 % [facility] RDW SD 47.6 35.7 - 48.1 fL [facility] NRBC abs 0.00 0.00 - 0.01 K/cumm [facility] Blood 05/09/2025 5:22 AM CDT 05/09/2025 5:32 AM CDT Bar Gamble MD LAB BLOOD ORDERABLES Final R esult Performing Organization Address City/[facility]/ZIP Co de Phone Number [facility] [employer] [place] [address] * Phosphorus (05/09/2025 5:22 AM CDT) Pathologist [facility] Phosphorus, pl 3.4 2.3 - 4.5 mg/dL Blood 05/09/2025 5:22 AM CDT 05/09/2025 5:32 AM CDT us Bar Gamble MD LAB BLOOD ORDERABLES Final R esult Performing Organization Address [facility] [place] [address] * Magnesium (05/09/2025 5:22 AM CDT) [facility] Magnesium 2.1 1.4 - 2.5 mg/dL Blood 05/09/2025 5:22 AM CDT 05/09/2025 5:32 AM CDT us Bar Gamble MD LAB BLOOD ORDERABLES Final R esult Performing Organization Address [facility] Co de Phone Number [facility] [employer] [place] [address] * (ABNORMAL) Hepatic function panel (05/09/2025 5:22 AM CDT) [facility] Bilirubin, total 0.6 0.1 - 1.2 mg/dL Bilirubin, direct 0.3 0.1 - 0.3 mg/dL [facility] Protein, pl 5.8(L) 6.5 - 8.5 g/dL [facility] Albumin 3.6 3.5 - 5.0 g/dL [facility] Alk phos 243(H) 40 - 130 Units/L [facility] ALT 23 7 - 55 Units/L [facility] AST 19 10 - 50 Units/L [facility] Blood 05/09/2025 5:22 AM CDT 05/09/2025 5:32 AM CDT us Bar Gamble MD LAB BLOOD ORDERABLES Final R esult Performing Organization Address City/[facility]/ZIP Co de Phone Number [facility] Department [place] [address] * (ABNORMAL) Basic metabolic panel (05/09/2025 5:22 AM CDT) [facility] Sodium 139 135 - 145 mmol/L Potassium, pl 3.9 3.3 - 4.9 mmol/L [facility] Chloride 99 97 - 110 mmol/L [facility] CO2 29 22 - 32 mmol/L [facility] Anion gap 11 2 - 15 mmol/L [facility] BUN 37(H) 6 - 25 mg/dL [facility] Creatinine 1.43(H) 0.80 - 1.30 mg/dL [facility] Glucose 105 70 - 199 mg/dL [facility] Comment: Interpretive Data Fasting glucose >/= [...] 2022. Calcium 8.8 8.5 - 10.3 mg/dL [facility] Blood 05/09/2025 5:22 AM CDT 05/09/2025 5:32 AM CDT us Bar Gamble MD LAB BLOOD ORDERABLES Final R esult Performing Organization Address [facility]/ZIP Co de Phone Number [facility] Department [place] [address] * Oxyhemoglobin, pulmonary artery (05/09/2025 12:00 AM CDT) Pathologist [facility] Oxyhemoglobin, PA 64.2 % Comment: Interpretive Data No reference range established. Current interpretive data was last revised 2020. Blood 05/09/2025 05/09/2025 12: 07 AM CDT us Bar Gamble MD LAB BLOOD ORDERABLES Final R esult Performing Organization Address [facility] Co de Phone Number [facility] [place] [employer] [place] [address] * (ABNORMAL) Hemoglobin total, pulmonary artery (05/09/2025 12:00 AM CDT) [facility] Hemoglobin total, PA 11.0(L) 13.0 - 17.5 g/dL Blood 05/09/2025 05/09/2025 12: 07 AM CDT us Bar Gamble MD LAB BLOOD ORDERABLES Final R esult Performing Organization Address [facility] de Phone Number [facility] [employer] [place] [address] * (ABNORMAL) Lactate, whole blood (05/09/2025 12:00 AM CDT) [facility] Lactate, bld 0.6(L) 0.7 - 2.0 mmol/L Blood 05/09/2025 05/09/2025 12: 07 AM CDT Bar Gamble MD LAB BLOOD ORDERABLES Final R esult Performing Organization Address [facility] de Phone Number [facility] [employer] [place] [address] * Antibody identification (05/08/2025 5:38 PM CDT) [facility] Antibody ID 1 Anti-CD38 Comment:Panreactive -CD38 on reagent RBCs reacting with anti-CD38 therapy. DTT treatment removes cell surface CD38 and allows detection of common clinically significant antibodies except those against [place] antigens. TRANSFUSION [id number] Blood 05/08/2025 5:38 PM CDT 05/08/2025 5:38 PM CDT us Libia Suarez NURSE FIRST AID LAB BLOOD BANK TEST ORDERABLE S Final Result Performing Organization Address City/[facility] Co de Phone Number [facility] [place] [employer] [place] [address] * Oxyhemoglobin, pulmonary artery (05/08/2025 4:22 PM CDT) Oxyhemoglobin, PA 55.6 % Comment: Interpretive Data No reference range established. Current interpretive data was last revised 2020. Blood 05/08/2025 4:22 PM CDT 05/08/2025 4:36 PM CDT us Bar Gamble MD LAB BLOOD ORDERABLES Final R esult Performing Organization Address [facility] [place] [address] * (ABNORMAL) Hemoglobin total, pulmonary artery (05/08/2025 4:22 PM CDT) Hemoglobin total, PA 12.0(L) 13.0 - 17.5 g/dL Blood 05/08/2025 4:22 PM CDT 05/08/2025 4:36 PM CDT us Bar Gamble MD LAB BLOOD ORDERABLES Final R esult Performing Organization Address [facility] Co de Phone Number [facility] [place] [address] * (ABNORMAL) eGFR (05/08/2025 4:22 PM CDT) [...] ORDERABLES Final R esult Performing Organization Address City/[facility]/ZIP Co de Phone Number [facility] Department [place] [employer] [place] [address] * Lactate, whole blood (05/08/2025 4:22 PM CDT) Pathologist [facility] Lactate, bld 0.7 0.7 - 2.0 mmol/L Blood 05/08/2025 4:22 PM CDT 05/08/2025 4:36 PM CDT us Bar Gamble MD LAB BLOOD ORDERABLES Final R esult Performing Organization Address City/[facility]/ZIP Co de Phone Number DULCE MARIA [facility] Department [place] [address] * (ABNORMAL) Type and screen (05/08/2025 4:22 PM CDT) Pathologist [facility] ABO Rh O Positive Poppy, indirect Positive(A) [facility] Blood 05/08/2025 4:22 PM CDT 05/08/2025 4:44 PM CDT Narrative [facility] - 05/08/2025 5:38 PM CDT Has the patient had Daratumumab or Isatuximab in the past 6 months?->Unknown us Libia Suarez NURSE FIRST AID LAB BLOOD BANK TEST ORDERABLE S Final Result [facility] [place] [address] * Phosphorus (05/08/2025 4:22 PM CDT) [facility] Phosphorus, pl 3.7 2.3 - 4.5 mg/dL Blood 05/08/2025 4:22 PM CDT 05/08/2025 4:35 PM CDT us Bar Gamble MD LAB BLOOD ORDERABLES Final R esult Performing Organization Address [facility] Co de Phone Number [facility] [place] [employer] [place] [address] * Magnesium (05/08/2025 4:22 PM CDT) [facility] Magnesium 2.3 1.4 - 2.5 mg/dL Blood 05/08/2025 4:22 PM CDT 05/08/2025 4:35 PM CDT Bar Gamble MD LAB BLOOD ORDERABLES Final R esult Performing Organization Address [facility] Co de Phone Number [facility] [employer] [place] [address] * (ABNORMAL) Basic metabolic panel (05/08/2025 4:22 PM CDT) [facility] Sodium 136 135 - 145 mmol/L Potassium, pl 4.7 3.3 - 4.9 mmol/L [facility] Chloride 99 97 - 110 mmol/L [facility] CO2 26 22 - 32 mmol/L [facility] Anion gap 11 2 - 15 mmol/L [facility] BUN 36(H) 6 - 25 mg/dL [facility] Creatinine 1.37(H) 0.80 - 1.30 mg/dL [facility] Glucose 116 70 - 199 mg/dL [facility] Comment: Interpretive Data Fasting glucose >/= [...] 2022. Calcium 9.0 8.5 - 10.3 mg/dL [facility] Blood 05/08/2025 4:22 PM CDT 05/08/2025 4:35 PM CDT us Bar Gamble MD LAB BLOOD ORDERABLES Final R esult Performing Organization Address City/[facility]/ZIP Co de Phone Number [facility] [place] [address] * Oxyhemoglobin, pulmonary artery (05/08/2025 8:21 AM CDT) Oxyhemoglobin, PA 58.3 % Comment: Interpretive Data No reference range established. Current interpretive data was last revised 2020. Blood 05/08/2025 8:21 AM CDT 05/08/2025 8:34 AM CDT Bar Gamble MD LAB BLOOD ORDERABLES Final R esult CERNER [facility] [place] [address] * (ABNORMAL) Hemoglobin total, pulmonary artery (05/08/2025 8:21 AM CDT) Hemoglobin total, PA 11.9(L) 13.0 - 17.5 g/dL Blood 05/08/2025 8:21 AM CDT 05/08/2025 8:34 AM CDT us Bar Gamble MD LAB BLOOD ORDERABLES Final R esult Performing Organization Address City/[facility]/ZIP Co de Phone Number [facility] [place] [address] * Lactate, whole blood (05/08/2025 8:21 AM CDT) Lactate, bld 0.9 0.7 - 2.0 mmol/L Blood 05/08/2025 8:21 AM CDT 05/08/2025 8:34 AM CDT us Bar Gamble MD LAB BLOOD ORDERABLES Final R esult Performing Organization Address City/[facility] Co de Phone Number [facility] [place] [address] * XR Chest 1 View (05/08/2025 5:48 AM CDT) Anatomical Region Laterality Modality Body, Chest N/A Digital Radiogra phy 05/08/2025 10:3 7 AM CDT Impressions 05/08/2025 11:06 AM CDT Comparison with 05/07/2020 5:33 AM. A right PICC catheter is in place with tip overlying superior vena cava. Right internal jugular [place] catheter tip remains in a right lower lobe segmental pulmonary artery. Retraction is recommended. Trace bilateral pleural effusions with associated atelectasis. No pneumothorax. Stable cardiac mediastinal silhouette. Findings concerning [place] catheter position were communicated to Dr. Acosta [...] overlying superior vena cava. Right internal jugular [place] catheter tip remains in a right lower lobe segmental pulmonary artery. Retraction is recommended. Trace bilateral pleural effusions with associated atelectasis. No pneumothorax. Stable cardiac mediastinal silhouette. Findings concerning [place] catheter position were communicated to Dr. Acosta [...] MD LAB BLOOD ORDERABLES Final R esult [facility] [place] [address] * (ABNORMAL) Hemoglobin total, pulmonary artery (05/08/2025 5:29 AM CDT) Hemoglobin total, PA 11.3(L) 13.0 - 17.5 g/dL Blood 05/08/2025 5:29 AM CDT 05/08/2025 5:46 AM CDT us Bar Gamble MD LAB BLOOD ORDERABLES Final R esult DULCE MARIA [facility] [place] [address] * eGFR (05/08/2025 5:29 AM CDT) eGFR [...] CDT 05/08/2025 5:46 AM CDT us Bar Gmable MD LAB BLOOD ORDERABLES Final R esult DULCE MARIA [facility] [employer] [place] [address] * Lactate, whole blood (05/08/2025 5:29 AM CDT) Lactate, bld 0.7 0.7 - 2.0 mmol/L Blood 05/08/2025 5:29 AM CDT 05/08/2025 5:46 AM CDT Zev Cowart MD PhD LAB BLOOD ORDERABLES Fi nal Result Performing Organization Address [facility] Co de Phone Number [facility] [place] [address] * (ABNORMAL) aPTT (05/08/2025 5:29 AM CDT) Pathologist [facility] aPTT 66(H) 28 - 38 sec Comment: Interpretive Data Heparin therapeutic range: 66.0 - 100.0 seconds. Range based on correlation with therapeutic heparin activity range of 0.3 - 0.7 Units/mL. Current interpretive data was last revised on 2023. Blood 05/08/2025 5:29 AM CDT 05/08/2025 5:46 AM CDT Narrative [facility] - 05/08/2025 6:18 AM CDT STAT [...] drawn peripherally (not from CVC). Libia Suarez NURSE FIRST AID LAB BLOOD ORDERABLES Final Re sult Performing Organization Address [facility]/ZIP Co de Phone Number [facility] [place] [address] * (ABNORMAL) CBC without differential (05/08/2025 5:29 AM CDT) [facility] WBC 8.89 3.80 - 9.90 K/cumm Hgb 11.0(L) 13.0 - 17.5 g/dL [facility] Hct 33.6(L) 38.9 - 50.3 % [facility] Plt 187 150 - 400 K/cumm [facility] MPV 11.9 9.1 - 12.3 fL [facility] RBC 4.03(L) 4.30 - 5.80 M/cumm [facility] MCV 83.4 81.3 - 96.4 fL [facility] MCH 27.3 27.1 - 33.3 pg [facility] MCHC 32.7 32.3 - 35.7 g/dL [facility] RDW CV 15.5(H) 11.1 - 14.9 % [facility] RDW SD 47.6 35.7 - 48.1 fL [facility] NRBC abs 0.00 0.00 - 0.01 K/cumm [facility] Blood 05/08/2025 5:29 AM CDT 05/08/2025 5:46 AM CDT us Bar Gamble MD LAB BLOOD ORDERABLES Final R esult Performing Organization Address City/[facility] Co de Phone Number [facility] Department [place] [employer] [place] [address] * Phosphorus (05/08/2025 5:29 AM CDT) [facility] Phosphorus, pl 3.2 2.3 - 4.5 mg/dL Blood 05/08/2025 5:29 AM CDT 05/08/2025 5:46 AM CDT Bar Gamble MD LAB BLOOD ORDERABLES Final R esult Performing Organization Address City/[facility] Co de Phone Number [facility] [place] [address] * Magnesium (05/08/2025 5:29 AM CDT) [facility] Magnesium 2.2 1.4 - 2.5 mg/dL Blood 05/08/2025 5:29 AM CDT 05/08/2025 5:46 AM CDT Bar Gamble MD LAB BLOOD ORDERABLES Final R esult [facility] [place] [address] * (ABNORMAL) Hepatic function panel (05/08/2025 5:29 AM CDT) [facility] Bilirubin, total 0.8 0.1 - 1.2 mg/dL Bilirubin, direct 0.4(H) 0.1 - 0.3 mg/dL [facility] Protein, pl 6.2(L) 6.5 - 8.5 g/dL [facility] Albumin 3.8 3.5 - 5.0 g/dL [facility] Alk phos 258(H) 40 - 130 Units/L [facility] ALT 26 7 - 55 Units/L [facility] AST 26 10 - 50 Units/L [facility] Blood 05/08/2025 5:29 AM CDT 05/08/2025 5:46 AM CDT us Bar Gamble MD LAB BLOOD ORDERABLES Final R esult [facility] [place] [address] * (ABNORMAL) Basic metabolic panel (05/08/2025 5:29 AM CDT) [facility] Sodium 136 135 - 145 mmol/L Potassium, pl 3.8 3.3 - 4.9 mmol/L [facility] Chloride 98 97 - 110 mmol/L [facility] CO2 30 22 - 32 mmol/L [facility] Anion gap 8 2 - 15 mmol/L [facility] BUN 39(H) 6 - 25 mg/dL [facility] Creatinine 1.33(H) 0.80 - 1.30 mg/dL [facility] Glucose 109 70 - 199 mg/dL [facility] Comment: Interpretive Data Fasting glucose >/= [...] 2022. Calcium 9.4 8.5 - 10.3 mg/dL [facility] Blood 05/08/2025 5:29 AM CDT 05/08/2025 5:46 AM CDT us Bar Gamble MD LAB BLOOD ORDERABLES Final R esult Performing Organization Address City/[facility] Co de Phone Number [facility] Department [place] [employer] [place] [address] * Oxyhemoglobin, pulmonary artery (05/07/2025 11:15 PM CDT) Pathologist WILMAN Becerra 66.3 % Comment: Interpretive Data No reference range established. Current interpretive data was last revised 2020. Blood 05/07/2025 11:1 5 PM CDT 05/08/2025 12:22 AM CDT us Bar Gamble MD LAB BLOOD ORDERABLES Final R esult Performing Organization Address City/[facility]/ZIP Co de Phone Number [facility] [place] [employer] [place] [address] * (ABNORMAL) Hemoglobin total, pulmonary artery (05/07/2025 11:15 PM CDT) Hemoglobin total, PA 12.2(L) 13.0 - 17.5 g/dL Blood 05/07/2025 11:1 5 PM CDT 05/08/2025 12:22 AM CDT us Bar Gamble MD LAB BLOOD ORDERABLES Final R esult Performing Organization Address City/[facility]/ZIP Co de Phone Number [facility] [place] [address] * Lactate, whole blood (05/07/2025 11:15 PM CDT) Lactate, bld 0.9 0.7 - 2.0 mmol/L Blood 05/07/2025 11:1 5 PM CDT 05/08/2025 12:22 AM CDT us Bar Gamble MD LAB BLOOD ORDERABLES Final R esult Performing Organization Address [facility] Co de Phone Number [facility] [employer] [place] [address] * Oxyhemoglobin, pulmonary artery (05/07/2025 4:15 PM CDT) Oxyhemoglobin, PA 57.4 % Comment: Interpretive Data No reference range established. Current interpretive data was last revised 2020. Blood 05/07/2025 4:15 PM CDT 05/07/2025 4:23 PM CDT us Bar Gamble MD LAB BLOOD ORDERABLES Final R esult Performing Organization Address City/[facility] Co de Phone Number [facility] [place] [address] * (ABNORMAL) Hemoglobin total, pulmonary artery (05/07/2025 4:15 PM CDT) Hemoglobin total, PA 12.6(L) 13.0 - 17.5 g/dL Blood 05/07/2025 4:15 PM CDT 05/07/2025 4:23 PM CDT Bar Gamble MD LAB BLOOD ORDERABLES Final R esult Performing Organization Address [facility] Co de Phone [facility] [place] [address] * eGFR (05/07/2025 4:15 PM CDT) Pathologist [facility] eGFR 64 >=60 mL/min/1. 73 m2 Comment: [...] ORDERABLES Final R esult Performing Organization Address City/[facility]/ZIP Co de Phone Number DULCE MARIA [facility] Department [place] [address] * Lactate, whole blood (05/07/2025 4:15 PM CDT) [facility] Lactate, bld 1.2 0.7 - 2.0 mmol/L Blood 05/07/2025 4:15 PM CDT 05/07/2025 4:23 PM CDT Bar Gamble MD LAB BLOOD ORDERABLES Final R esult Performing Organization Address [facility] Co de Phone Number [facility] [place] [employer] [place] [address] * Phosphorus (05/07/2025 4:15 PM CDT) [facility] Phosphorus, pl 3.7 2.3 - 4.5 mg/dL Blood 05/07/2025 4:15 PM CDT 05/07/2025 4:34 PM CDT Bar Gamble MD LAB BLOOD ORDERABLES Final R esult Performing Organization Address [facility] Co de Phone Number [facility] [place] [employer] [place] [address] * Magnesium (05/07/2025 4:15 PM CDT) [facility] Magnesium 2.2 1.4 - 2.5 mg/dL Blood 05/07/2025 4:15 PM CDT 05/07/2025 4:34 PM CDT Bar Gamble MD LAB BLOOD ORDERABLES Final R esult Performing Organization Address City/[facility] [place] [address] * (ABNORMAL) Basic metabolic panel (05/07/2025 4:15 PM CDT) [facility] Sodium 134(L) 135 - 145 mmol/L Potassium, pl 4.3 3.3 - 4.9 mmol/L [facility] Chloride 95(L) 97 - 110 mmol/L [facility] CO2 28 22 - 32 mmol/L [facility] Anion gap 11 2 - 15 mmol/L [facility] BUN 40(H) 6 - 25 mg/dL [facility] Creatinine 1.28 0.80 - 1.30 mg/dL [facility] Glucose 176 70 - 199 mg/dL [facility] Comment: Interpretive Data Fasting glucose >/= [...] 2022. Calcium 9.6 8.5 - 10.3 mg/dL [facility] Blood 05/07/2025 4:15 PM CDT 05/07/2025 4:34 PM CDT us Bar Gamble MD LAB BLOOD ORDERABLES Final R esult [facility] Department [place] [address] * MID Lab Inf Prevention Critical Callback Axilla/Groin (05/07/2025 11:38 AM CDT) TestName Tai mak Date Notified [id number] [facility] Time Notified 918 [facility] Called/Read Back Bebo Avalos [facility] Called By Pardeep Mark [facility] Axilla/Groin 05/07/2025 11:3 8 AM CDT 05/07/2025 11:59 AM CDT us Sathish Gongora MD LAB MICROBIOLOGY - GENERAL ORDER LINH Final Result CERNER [facility] [place] [address] * (ABNORMAL) Infection Prevention Shady auris PCR, surveillance Axilla/Groin (05/07/2025 11:38 AM CDT) Shady auris DNA Detected( A) Not Detected [facility] Comment: Interpretive Data Testing performed by [facility] using the Lucas carlos [id number] Shady auris assay. This assay detects DNA from Shady auris using Real-Time PCR. This assay is laboratory developed and is not cleared by the [place] Food and Drug Administration. The performance characteristics have been verified by the [facility]. Axilla/Groin 05/07/2025 11:3 8 AM CDT 05/07/2025 11:59 AM CDT us Sathish Gongora MD LAB MICROBIOLOGY - GENERAL ORDER LINH Final Result Performing Organization Address City/[facility] Co de Phone Number [facility] [place] [address] [facility] * Shady (yeast) culture Axilla/Groin (05/07/2025 11:38 AM CDT) Report Final Report: No Growth of Shady auris Culture reflexed from positive Shady auris PCR for epidemiological purposes. Not billed to patient. Axilla/Groin 05/07/2025 11:3 8 AM CDT 05/08/2025 8:54 AM CDT Narrative [facility] - 05/15/2025 1:45 PM CDT Reflex culture [...] ORDER LINH Final Result Performing Organization Address City/[facility] Co de Phone Number [facility] [place] [address] * Oxyhemoglobin, pulmonary artery (05/07/2025 11:34 AM CDT) Oxyhemoglobin, PA 50.1 % Comment: Interpretive Data No reference range established. Current interpretive data was last revised 2020. Blood 05/07/2025 11:3 4 AM CDT 05/07/2025 11:47 AM CDT us Bar Gamble MD LAB BLOOD ORDERABLES Final R esult Performing Organization Address [facility] de Phone Number [facility] [place] [address] * (ABNORMAL) Hemoglobin total, pulmonary artery (05/07/2025 11:34 AM CDT) Hemoglobin total, PA 12.2(L) 13.0 - 17.5 g/dL Blood 05/07/2025 11:3 4 AM CDT 05/07/2025 11:47 AM CDT us Bar Gamble MD LAB BLOOD ORDERABLES Final R esult Performing Organization Address [facility] Co de Phone Number [facility] [place] [address] * Potassium, whole blood (05/07/2025 11:34 AM CDT) Potassium, bld 4.1 3.3 - 4.9 mmol/L Blood 05/07/2025 11:3 4 AM CDT 05/07/2025 11:47 AM CDT us Bar Gamble MD LAB BLOOD ORDERABLES Final R esult Performing Organization Address [facility] Co de Phone Number CERNER [facility] Department [place] [address] * Lactate, whole blood (05/07/2025 11:34 AM CDT) Lactate, bld 1.0 0.7 - 2.0 mmol/L Blood 05/07/2025 11:3 4 AM CDT 05/07/2025 11:47 AM CDT Bar Gamble MD LAB BLOOD ORDERABLES Final R esult [facility] [place] [address] * XR Chest 1 View (05/07/2025 6:22 AM CDT) Anatomical Region Laterality Modality Body, Chest N/A Digital Radiogra phy 05/07/2025 8:56 AM CDT Impressions 05/07/2025 10:26 AM CDT The current study is compared with the prior radiograph dated 2025. A [place] catheter is in place, tip overlies the [...] with the prior radiograph dated 2025. A [place] catheter is in place, tip overlies the [...] * (ABNORMAL) aPTT (05/07/2025 4:25 AM CDT) Pathologist [facility] aPTT 61(H) 28 - 38 sec Comment: Interpretive Data Heparin therapeutic range: 66.0 - 100.0 seconds. Range based on correlation with therapeutic heparin activity range of 0.3 - 0.7 Units/mL. Current interpretive data was last revised on 2023. Blood 05/07/2025 4:25 AM CDT 05/07/2025 4:52 AM CDT Narrative DULCE MARIA [facility] - 05/07/2025 5:01 AM CDT STAT PTT [...] drawn peripherally (not from CVC). Libia Suarez NURSE FIRST AID LAB BLOOD ORDERABLES Final Re sult [facility] Department [place] [address] * Oxyhemoglobin, pulmonary artery (05/07/2025 4:23 AM CDT) Oxyhemoglobin, PA 61.2 % Comment: Interpretive Data No reference range established. Current interpretive data was last revised 2020. Blood 05/07/2025 4:23 AM CDT 05/07/2025 4:38 AM CDT Bar Gamble MD LAB BLOOD ORDERABLES Final R esult Performing Organization Address City/[facility]/ZIP Co de Phone Number [facility] Department [place] [address] * (ABNORMAL) Hemoglobin total, pulmonary artery (05/07/2025 4:23 AM CDT) Pathologist [facility] Hemoglobin total, PA 11.3(L) 13.0 - 17.5 g/dL Blood 05/07/2025 4:23 AM CDT 05/07/2025 4:38 AM CDT us Bar Gamble MD LAB BLOOD ORDERABLES Final R esult Performing Organization Address City/[facility] Co de Phone Number [facility] Department [place] [address] * (ABNORMAL) eGFR (05/07/2025 4:23 AM CDT) [...] ORDERABLES Final R esult Performing Organization Address City/[facility]/ZIP Co de Phone Number [facility] [place] [address] * Lactate, whole blood (05/07/2025 4:23 AM CDT) [facility] Lactate, bld 0.7 0.7 - 2.0 mmol/L Blood 05/07/2025 4:23 AM CDT 05/07/2025 4:38 AM CDT us Bar Gamble MD LAB BLOOD ORDERABLES Final R esult Performing Organization Address City/[facility] Co de Phone Number [facility] [place] [address] * (ABNORMAL) CBC without differential (05/07/2025 4:23 AM CDT) [facility] WBC 9.14 3.80 - 9.90 K/cumm Hgb 11.0(L) 13.0 - 17.5 g/dL [facility] Hct 32.7(L) 38.9 - 50.3 % [facility] Plt 191 150 - 400 K/cumm [facility] MPV 12.3 9.1 - 12.3 fL [facility] RBC 3.96(L) 4.30 - 5.80 M/cumm [facility] MCV 82.6 81.3 - 96.4 fL [facility] MCH 27.8 27.1 - 33.3 pg [facility] MCHC 33.6 32.3 - 35.7 g/dL [facility] RDW CV 15.5(H) 11.1 - 14.9 % [facility] RDW SD 47.0 35.7 - 48.1 fL [facility] NRBC abs 0.00 0.00 - 0.01 K/cumm [facility] Blood 05/07/2025 4:23 AM CDT 05/07/2025 5:06 AM CDT Bar Gamble MD LAB BLOOD ORDERABLES Final R esult Performing Organization Address City/[facility] Co de Phone Number [facility] [employer] [place] [address] * Phosphorus (05/07/2025 4:23 AM CDT) Phosphorus, pl 3.6 2.3 - 4.5 mg/dL Blood 05/07/2025 4:23 AM CDT 05/07/2025 5:06 AM CDT us Bar Gamble MD LAB BLOOD ORDERABLES Final R esult Performing Organization Address City/[facility] Co de Phone Number [facility] [employer] [place] [address] * Magnesium (05/07/2025 4:23 AM CDT) Magnesium 2.1 1.4 - 2.5 mg/dL Blood 05/07/2025 4:23 AM CDT 05/07/2025 5:06 AM CDT Bar Gamble MD LAB BLOOD ORDERABLES Final R esult Performing Organization Address [facility] Co de Phone Number [facility] [employer] [place] [address] * (ABNORMAL) Hepatic function panel (05/07/2025 4:23 AM CDT) Bilirubin, total 0.7 0.1 - 1.2 mg/dL Bilirubin, direct 0.4(H) 0.1 - 0.3 mg/dL [facility] Protein, pl 6.1(L) 6.5 - 8.5 g/dL [facility] Albumin 3.9 3.5 - 5.0 g/dL [facility] Alk phos 245(H) 40 - 130 Units/L [facility] ALT 23 7 - 55 Units/L [facility] AST 22 10 - 50 Units/L [facility] Blood 05/07/2025 4:23 AM CDT 05/07/2025 5:06 AM CDT us Bar Gamble MD LAB BLOOD ORDERABLES Final R esult [facility] Department [place] [address] * (ABNORMAL) Basic metabolic panel (05/07/2025 4:23 AM CDT) Sodium 138 135 - 145 mmol/L Potassium, pl 3.3 3.3 - 4.9 mmol/L [facility] Chloride 98 97 - 110 mmol/L [facility] CO2 32 22 - 32 mmol/L [facility] Anion gap 8 2 - 15 mmol/L [facility] BUN 42(H) 6 - 25 mg/dL [facility] Creatinine 1.39(H) 0.80 - 1.30 mg/dL [facility] Glucose 117 70 - 199 mg/dL [facility] Comment: Interpretive Data Fasting glucose >/= [...] 2022. Calcium 9.4 8.5 - 10.3 mg/dL [facility] Blood 05/07/2025 4:23 AM CDT 05/07/2025 5:06 AM CDT us Bar Gamble MD LAB BLOOD ORDERABLES Final R esult Performing Organization Address [facility] Co de Phone Number [facility] [place] [address] * Oxyhemoglobin, pulmonary artery (2025 11:18 PM CDT) Oxyhemoglobin, PA 68.7 % Comment: Interpretive Data No reference range established. Current interpretive data was last revised 2020. Blood 2025 11:1 8 PM CDT 2025 11:29 PM CDT us Bar Gamble MD LAB BLOOD ORDERABLES Final R esult Performing Organization Address [facility] Co de Phone Number [facility] [employer] [place] [address] * (ABNORMAL) Hemoglobin total, pulmonary artery (2025 11:18 PM CDT) Hemoglobin total, PA 11.3(L) 13.0 - 17.5 g/dL Blood 2025 11:1 8 PM CDT 2025 11:29 PM CDT us Bar Gamble MD LAB BLOOD ORDERABLES Final R esult Performing Organization Address City/[facility] [place] [address] * Lactate, whole blood (2025 11:18 PM CDT) Lactate, bld 0.7 0.7 - 2.0 mmol/L Blood 2025 11:1 8 PM CDT 2025 11:29 PM CDT Bar Gamble MD LAB BLOOD ORDERABLES Final R esult Performing Organization Address [facility] Co de Phone Number [facility] [place] [address] * Oxyhemoglobin, pulmonary artery (2025 4:44 PM CDT) Oxyhemoglobin, PA 58.1 % Comment: Interpretive Data No reference range established. Current interpretive data was last revised 2020. Blood 2025 4:44 PM CDT 2025 4:52 PM CDT Bar Gamble MD LAB BLOOD ORDERABLES Final R esult Performing Organization Address [facility] Co de Phone Number [facility] [employer] [place] [address] * (ABNORMAL) Hemoglobin total, pulmonary artery (2025 4:44 PM CDT) Pathologist [facility] Hemoglobin total, PA 12.2(L) 13.0 - 17.5 g/dL Blood 2025 4:44 PM CDT 2025 4:52 PM CDT Bar Gamble MD LAB BLOOD ORDERABLES Final R esult Performing Organization Address [facility] [place] [address] * (ABNORMAL) eGFR (2025 4:44 PM CDT) Pathologist [facility] eGFR 56(L) >=60 mL/min/1. 73 m2 Comment: [...] MD LAB BLOOD ORDERABLES [facility] [place] [address] * Lactate, whole blood (2025 4:44 PM CDT) Lactate, bld 0.9 0.7 - 2.0 mmol/L Blood 2025 4:44 PM CDT 2025 4:52 PM CDT us Bar Gamble MD LAB BLOOD ORDERABLES Final R esult [facility] [place] [address] * Phosphorus (2025 4:44 PM CDT) Phosphorus, pl 3.8 2.3 - 4.5 mg/dL Blood 2025 4:44 PM CDT 2025 5:05 PM CDT Bar Gamble MD LAB BLOOD ORDERABLES Final R esult Performing Organization Address City/[facility]/ZIP Co de Phone Number [facility] Department [place] [address] * Magnesium (2025 4:44 PM CDT) Pathologist [facility] Magnesium 2.1 1.4 - 2.5 mg/dL Blood 2025 4:44 PM CDT 2025 5:05 PM CDT Bar Gamble MD LAB BLOOD ORDERABLES Final R esult Performing Organization Address [facility] Co de Phone Number [facility] Department [place] [address] * (ABNORMAL) Basic metabolic panel (2025 4:44 PM CDT) [facility] Sodium 138 135 - 145 mmol/L Potassium, pl 4.0 3.3 - 4.9 mmol/L [facility] Chloride 99 97 - 110 mmol/L [facility] CO2 30 22 - 32 mmol/L [facility] Anion gap 9 2 - 15 mmol/L [facility] BUN 43(H) 6 - 25 mg/dL [facility] Creatinine 1.42(H) 0.80 - 1.30 mg/dL [facility] Glucose 136 70 - 199 mg/dL [facility] Comment: Interpretive Data Fasting glucose >/= [...] 2022. Calcium 9.1 8.5 - 10.3 mg/dL DUL[facility] MARIA [facility] Blood 2025 4:44 PM CDT 2025 5:05 PM CDT Bar Gamble MD LAB BLOOD ORDERABLES Final R esult [facility] [place] [address] * XR Chest 1 View (2025 11:00 AM CDT) Anatomical Region Laterality Modality Body, Chest N/A Digital Radiogra phy 2025 11:5 9 AM CDT Impressions 2025 12:30 PM CDT The current study is compared with the prior radiograph dated 2025. A [place]-Jayne catheter is in place, tip overlies a branch of the right lower lobe pulmonary artery, similar to prior. Right upper extremity peripherally inserted central catheter tip projects over the superior vena cava. Trace bilateral pleural effusions, similar to prior. No confluent pulmonary consolidation. No pneumothorax. Unchanged cardiac and mediastinal silhouette. Findings regarding the [place]-Jayne position were discussed with Dr. Mitchell by Dr. Landry on 2025 at 11:57 AM via [employer] message. Dictated by: Dominic Lnadry MD The radiology attending physician has personally [...] with the prior radiograph dated 2025. A [place] catheter is in place, tip overlies a branch of the right lower lobe pulmonary artery, similar to prior. Right upper extremity peripherally inserted central catheter tip projects over the superior vena cava. Trace bilateral pleural effusions, similar to prior. No confluent pulmonary consolidation. No pneumothorax. Unchanged cardiac and mediastinal silhouette. Findings regarding the [place] position were discussed with Dr. Mitchell by Dr. Landry on 2025 at 11:57 AM via [employer] message. Dictated by: Dominic Landry MD The [...] ORDERABLES Final R esult Performing Organization Address City/[facility]/ZIP Co de Phone Number [facility] [place] [address] * (ABNORMAL) Hemoglobin total, pulmonary artery (2025 8:17 AM CDT) [facility] Hemoglobin total, PA 12.6(L) 13.0 - 17.5 g/dL Blood 2025 8:17 AM CDT 2025 8:35 AM CDT Bar Gamble MD LAB BLOOD ORDERABLES Final R esult [facility] [place] [address] * Potassium, whole blood (2025 8:17 AM CDT) Potassium, bld 4.3 3.3 - 4.9 mmol/L Blood 2025 8:17 AM CDT 2025 8:35 AM CDT Bar Gamble MD LAB BLOOD ORDERABLES Final R esult Performing Organization Address [facility] Co de Phone Number [facility] Department [place] [address] * (ABNORMAL) Lactate, whole blood (2025 8:17 AM CDT) Lactate, bld 2.7(H) 0.7 - 2.0 mmol/L Blood 2025 8:17 AM CDT 2025 8:35 AM CDT Bar Gamble MD LAB BLOOD ORDERABLES Final R esult Performing Organization Address [facility] de Phone Number [facility] [place] [address] * XR Chest 1 View (2025 6:46 AM CDT) Anatomical Region Laterality Modality Body, Chest N/A Computed Radiogr aphy 2025 9:07 AM CDT Impressions 2025 9:10 AM CDT Comparison to 05/05/2025. Right peripherally inserted central venous catheter tip at the superior vena cava. A [place] catheter is in place, tip overlies the [...] tip at the superior vena cava. A [place] catheter is in place, tip overlies the [...] 4:28 AM CDT 2025 4:55 AM CDT [facility] - 2025 5:04 AM CDT STAT PTT [...] drawn peripherally (not from CVC). Libia Suarez NURSE FIRST AID LAB BLOOD ORDERABLES Final Re sult Performing Organization Address [facility] Co de Phone Number [facility] [place] [address] * Oxyhemoglobin, pulmonary artery (2025 4:27 AM CDT) Oxyhemoglobin, PA 64.4 % Comment: Interpretive Data No reference range established. Current interpretive data was last revised 2020. Blood 2025 4:27 AM CDT 2025 4:41 AM CDT us Bar Gamble MD LAB BLOOD ORDERABLES Final R esult Performing Organization Address [facility] Co de Phone Number [facility] [place] [address] * (ABNORMAL) Hemoglobin total, pulmonary artery (2025 4:27 AM CDT) Hemoglobin total, PA 11.4(L) 13.0 - 17.5 g/dL Blood 2025 4:27 AM CDT 2025 4:41 AM CDT us Bar Gamble MD LAB BLOOD ORDERABLES Final R esult Performing Organization Address [facility] Co de Phone Number [facility] Department [place] [address] * (ABNORMAL) eGFR (2025 4:27 AM CDT) [...] ORDERABLES Final R esult Performing Organization Address City/[facility] Co de Phone Number [facility] Department [place] [address] * Lactate, whole blood (2025 4:27 AM CDT) Pathologist [facility] Lactate, bld 0.7 0.7 - 2.0 mmol/L Blood 2025 4:27 AM CDT 2025 4:41 AM CDT us Bar Gamble MD LAB BLOOD ORDERABLES Final R esult Performing Organization Address City/[facility]/ZIP Co de Phone Number [facility] Department [place] [address] * (ABNORMAL) CBC without differential (2025 4:27 AM CDT) WBC 9.96(H) 3.80 - 9.90 K/cumm Hgb 10.8(L) 13.0 - 17.5 g/dL [facility] Hct 32.7(L) 38.9 - 50.3 % [facility] Plt 187 150 - 400 K/cumm [facility] MPV 11.5 9.1 - 12.3 fL [facility] RBC 3.94(L) 4.30 - 5.80 M/cumm [facility] MCV 83.0 81.3 - 96.4 fL [facility] MCH 27.4 27.1 - 33.3 pg [facility] MCHC 33.0 32.3 - 35.7 g/dL [facility] RDW CV 15.4(H) 11.1 - 14.9 % [facility] RDW SD 47.0 35.7 - 48.1 fL [facility] NRBC abs 0.00 0.00 - 0.01 K/cumm [facility] Blood 2025 4:27 AM CDT 2025 4:49 AM CDT us Bar Gamble MD LAB BLOOD ORDERABLES Final R esult Performing Organization Address [facility] de Phone Number [facility] Department [place] [address] * Phosphorus (2025 4:27 AM CDT) Phosphorus, pl 3.7 2.3 - 4.5 mg/dL Blood 2025 4:27 AM CDT 2025 4:49 AM CDT us Bar Gamble MD LAB BLOOD ORDERABLES Final R esult Performing Organization Address [facility] de Phone Number [facility] [employer] [place] [address] * Magnesium (2025 4:27 AM CDT) Magnesium 2.0 1.4 - 2.5 mg/dL Blood 2025 4:27 AM CDT 2025 4:49 AM CDT Bar Gamble MD LAB BLOOD ORDERABLES Final R esult Performing Organization Address [facility] Co de Phone Number [facility] [place] [address] * (ABNORMAL) Hepatic function panel (2025 4:27 AM CDT) Pathologist [facility] Bilirubin, total 0.6 0.1 - 1.2 mg/dL Bilirubin, direct <0.2 0.1 - 0.3 mg/dL [facility] Comment:Reviewed Protein, pl 5.9(L) 6.5 - 8.5 g/dL [facility] Albumin 3.9 3.5 - 5.0 g/dL [facility] Alk phos 247(H) 40 - 130 Units/L [facility] ALT 24 7 - 55 Units/L [facility] AST 29 10 - 50 Units/L [facility] Blood 2025 4:27 AM CDT 2025 4:49 AM CDT Bar Gamble MD LAB BLOOD ORDERABLES Final R esult Performing Organization Address [facility] Co de Phone Number [facility] Department [place] [address] * (ABNORMAL) Basic metabolic panel (2025 4:27 AM CDT) [facility] Sodium 135 135 - 145 mmol/L Potassium, pl 3.6 3.3 - 4.9 mmol/L [facility] Chloride 97 97 - 110 mmol/L [facility] CO2 27 22 - 32 mmol/L [facility] Anion gap 11 2 - 15 mmol/L [facility] BUN 49(H) 6 - 25 mg/dL [facility] Creatinine 1.43(H) 0.80 - 1.30 mg/dL [facility] Glucose 115 70 - 199 mg/dL [facility] Comment: Interpretive Data Fasting glucose >/= [...] 2022. Calcium 9.0 8.5 - 10.3 mg/dL [facility] Blood 2025 4:27 AM CDT 2025 4:49 AM CDT us Bar Gamble MD LAB BLOOD ORDERABLES Final R esult Performing Organization Address [facility] Co de Phone Number [facility] Department [place] [employer] [place] [address] * Antibody identification (05/05/2025 11:27 PM CDT) Antibody ID 1 Anti-CD38 Comment:Panreactive -CD38 on reagent RBCs reacting with anti-CD38 therapy. DTT treatment removes cell surface CD38 and allows detection of common clinically significant antibodies except those against Dilma antigens. TRANSFUSION 2015;55;[id number] Blood 05/05/2025 11:2 7 PM CDT 05/05/2025 11:27 PM CDT us Libia Suarez NP LAB BLOOD BANK TEST ORDERABLE S Final Result Performing Organization Address [facility] Co de Phone Number [facility] Department [place] [employer] [place] [address] * Oxyhemoglobin, pulmonary artery (05/05/2025 10:09 PM CDT) Oxyhemoglobin, PA 46.3 % Comment: Interpretive Data No reference range established. Current interpretive data was last revised 2020. Blood 05/05/2025 10:0 9 PM CDT 05/05/2025 10:20 PM CDT us Bar Gamble MD LAB BLOOD ORDERABLES Final R esult Performing Organization Address [facility] Co de Phone Number [facility] [place] [address] * (ABNORMAL) Hemoglobin total, pulmonary artery (05/05/2025 10:09 PM CDT) Hemoglobin total, PA 12.7(L) 13.0 - 17.5 g/dL Blood 05/05/2025 10:0 9 PM CDT 05/05/2025 10:20 PM CDT Bar Gamble MD LAB BLOOD ORDERABLES Final R esult Performing Organization Address [facility] Co de Phone Number [facility] [place] [address] * Lactate, whole blood (05/05/2025 10:09 PM CDT) Lactate, bld 1.8 0.7 - 2.0 mmol/L Blood 05/05/2025 10:0 9 PM CDT 05/05/2025 10:20 PM CDT Bar Gamble MD LAB BLOOD ORDERABLES Final R esult Performing Organization Address [facility] Co de Phone Number [facility] [place] [address] * (ABNORMAL) Type and screen (05/05/2025 10:09 PM CDT) ABO Rh O Positive Poppy, indirect Positive(A) [facility] Blood 05/05/2025 10:0 9 PM CDT 05/05/2025 10:26 PM CDT Narrative [facility] - 05/05/2025 11:27 PM CDT Has the patient had Daratumumab or Isatuximab in the past 6 months?->Unknown us Libia Suarez NURSE FIRST AID LAB BLOOD BANK TEST ORDERABLE S Final Result Performing Organization Address [facility] Co de Phone Number [facility] [employer] [place] [address] * Oxyhemoglobin, pulmonary artery (05/05/2025 4:55 PM CDT) Oxyhemoglobin, PA 58.3 % Comment: Interpretive Data No reference range established. Current interpretive data was last revised 2020. Blood 05/05/2025 4:55 PM CDT 05/05/2025 5:12 PM CDT us Bar Gamble MD LAB BLOOD ORDERABLES Final R esult Performing Organization Address [facility] Co de Phone Number [facility] [employer] [place] [address] * (ABNORMAL) Hemoglobin total, pulmonary artery (05/05/2025 4:55 PM CDT) Hemoglobin total, PA 12.0(L) 13.0 - 17.5 g/dL Blood 05/05/2025 4:55 PM CDT 05/05/2025 5:12 PM CDT us Bar Gamble MD LAB BLOOD ORDERABLES Final R esult Performing Organization Address [facility] Co de Phone Number [facility] [employer] [place] [address] * (ABNORMAL) eGFR (05/05/2025 4:55 PM CDT) [...] ORDERABLES Final R esult Performing Organization Address City/[facility] Co de Phone Number [facility] Department [place] [employer] [place] [address] * Lactate, whole blood (05/05/2025 4:55 PM CDT) Lactate, bld 0.7 0.7 - 2.0 mmol/L Blood 05/05/2025 4:55 PM CDT 05/05/2025 5:12 PM CDT Bar Gamble MD LAB BLOOD ORDERABLES Final R esult Performing Organization Address City/[facility] Co de Phone Number [facility] Department [place] [employer] [place] [address] * Phosphorus (05/05/2025 4:55 PM CDT) Phosphorus, pl 4.5 2.3 - 4.5 mg/dL Blood 05/05/2025 4:55 PM CDT 05/05/2025 5:19 PM CDT Bar Gamble MD LAB BLOOD ORDERABLES Final R esult [facility] Department [place] [address] * Magnesium (05/05/2025 4:55 PM CDT) Pathologist [facility] Magnesium 2.1 1.4 - 2.5 mg/dL Blood 05/05/2025 4:55 PM CDT 05/05/2025 5:19 PM CDT Bar Gamble MD LAB BLOOD ORDERABLES Final R [facility]new [facility] Performing Organization Address [facility] Co de Phone Number [facility] [place] [address] * (ABNORMAL) Basic metabolic panel (05/05/2025 4:55 PM CDT) [facility] Sodium 136 135 - 145 mmol/L Potassium, pl 3.9 3.3 - 4.9 mmol/L [facility] Chloride 95(L) 97 - 110 mmol/L [facility] CO2 30 22 - 32 mmol/L [facility] Anion gap 11 2 - 15 mmol/L [facility] BUN 45(H) 6 - 25 mg/dL [facility] Creatinine 1.66(H) 0.80 - 1.30 mg/dL [facility] Glucose 121 70 - 199 mg/dL [facility] Comment: Interpretive Data Fasting glucose >/= [...] 2022. Calcium 9.2 8.5 - 10.3 mg/dL [facility] Blood 05/05/2025 4:55 PM CDT 05/05/2025 5:19 PM CDT us Bar Gamble MD LAB BLOOD ORDERABLES Final R esult Performing Organization Address [facility] Co de Phone Number [facility] [place] [address] * Oxyhemoglobin, pulmonary artery (05/05/2025 11:54 AM CDT) Oxyhemoglobin, PA 65.9 % Comment: Interpretive Data No reference range established. Current interpretive data was last revised 2020. Blood 05/05/2025 11:5 4 AM CDT 05/05/2025 12:04 PM CDT us Bar Gamble MD LAB BLOOD ORDERABLES Final R esult Performing Organization Address [facility] Co de Phone Number [facility] Department [place] [address] * (ABNORMAL) Hemoglobin total, pulmonary artery (05/05/2025 11:54 AM CDT) Hemoglobin total, PA 12.0(L) 13.0 - 17.5 g/dL Blood 05/05/2025 11:5 4 AM CDT 05/05/2025 12:04 PM CDT us Bar Gamble MD LAB BLOOD ORDERABLES Final R esult Performing Organization Address [facility] Co de Phone Number [facility] [place] [address] * Lactate, whole blood (05/05/2025 11:54 AM CDT) Lactate, bld 1.0 0.7 - 2.0 mmol/L Blood 05/05/2025 11:5 4 AM CDT 05/05/2025 12:04 PM CDT us Bar Gamble MD LAB BLOOD ORDERABLES Final R esult [facility] Department [place] [address] * XR Chest 1 View (05/05/2025 6:12 [...] Performing Organization Address [facility] [place] [address] * (ABNORMAL) Hemoglobin total, pulmonary artery (05/05/2025 5:31 AM CDT) Hemoglobin total, PA 11.9(L) 13.0 - 17.5 g/dL Blood 05/05/2025 5:31 AM CDT 05/05/2025 5:38 AM CDT Zev Cowart MD PhD LAB BLOOD ORDERABLES Fi nal Result Performing Organization Address [facility] [place] [address] * Oxyhemoglobin, pulmonary artery (05/05/2025 4:16 AM CDT) Oxyhemoglobin, PA 70.8 % Comment: Interpretive Data No reference range established. Current interpretive data was last revised 2020. Blood 05/05/2025 4:16 AM CDT 05/05/2025 4:37 AM CDT Bar Gamble MD LAB BLOOD ORDERABLES Final R esult Performing Organization Address [facility] Co de Phone Number [facility] [place] [address] * (ABNORMAL) Hemoglobin total, pulmonary artery (05/05/2025 4:16 AM CDT) Hemoglobin total, PA 11.7(L) 13.0 - 17.5 g/dL Blood 05/05/2025 4:16 AM CDT 05/05/2025 4:37 AM CDT Bar Gamble MD LAB BLOOD ORDERABLES Final R esult Performing Organization Address City/[facility]/ZIP Co de Phone Number DULCE MARIA [facility] [employer] [place] [address] * (ABNORMAL) eGFR (05/05/2025 4:16 AM CDT) [...] ORDERABLES Final R esult Performing Organization Address City/[facility]/ZIP Co de Phone Number DULCE MARIA [facility] Department [place] [address] * Lactate, whole blood (05/05/2025 4:16 AM CDT) Lactate, bld 0.7 0.7 - 2.0 mmol/L Blood 05/05/2025 4:16 AM CDT 05/05/2025 4:37 AM CDT Bar Gamble MD LAB BLOOD ORDERABLES Final R esult Performing Organization Address [facility] Co de Phone Number [facility] Department [place] [address] * (ABNORMAL) aPTT (05/05/2025 4:16 AM CDT) [facility] aPTT 62(H) 28 - 38 sec Comment: Interpretive Data Heparin therapeutic range: 66.0 - 100.0 seconds. Range based on correlation with therapeutic heparin activity range of 0.3 - 0.7 Units/mL. Current interpretive data was last revised on 2023. Blood 05/05/2025 4:16 AM CDT 05/05/2025 4:25 AM CDT Narrative [facility] - 05/05/2025 4:48 AM CDT STAT [...] drawn peripherally (not from CVC). Libia Suarez NURSE FIRST AID LAB BLOOD ORDERABLES Final Re sult Performing Organization Address [facility]/ZIP Co de Phone Number [facility] Department [place] [address] * (ABNORMAL) CBC without differential (05/05/2025 4:16 AM CDT) [facility] WBC 8.92 3.80 - 9.90 K/cumm Hgb 11.7(L) 13.0 - 17.5 g/dL [facility] Hct 35.5(L) 38.9 - 50.3 % [facility] Plt 202 150 - 400 K/cumm [facility] MPV 11.6 9.1 - 12.3 fL [facility] RBC 4.28(L) 4.30 - 5.80 M/cumm [facility] MCV 82.9 81.3 - 96.4 fL [facility] MCH 27.3 27.1 - 33.3 pg [facility] MCHC 33.0 32.3 - 35.7 g/dL [facility] RDW CV 15.5(H) 11.1 - 14.9 % [facility] RDW SD 47.5 35.7 - 48.1 fL [facility] NRBC abs 0.00 0.00 - 0.01 K/cumm [facility] Blood 05/05/2025 4:16 AM CDT 05/05/2025 4:31 AM CDT us Bar Gamble MD LAB BLOOD ORDERABLES Final R esult Performing Organization Address City/[facility]/ZIP Co de Phone Number [facility] Department [place] [address] * Phosphorus (05/05/2025 4:16 AM CDT) Phosphorus, pl 3.5 2.3 - 4.5 mg/dL Blood 05/05/2025 4:16 AM CDT 05/05/2025 4:31 AM CDT us Bar Gamble MD LAB BLOOD ORDERABLES Final R esult [facility] Department [place] [address] * Magnesium (05/05/2025 4:16 AM CDT) Magnesium 2.1 1.4 - 2.5 mg/dL Blood 05/05/2025 4:16 AM CDT 05/05/2025 4:31 AM CDT us Bar Gamble MD LAB BLOOD ORDERABLES Final R esult Performing Organization Address City/[facility]/ZIP Co de Phone Number [facility] [place] [address] * (ABNORMAL) Hepatic function panel (05/05/2025 4:16 AM CDT) Bilirubin, total 0.7 0.1 - 1.2 mg/dL Bilirubin, direct 0.3 0.1 - 0.3 mg/dL [facility] Protein, pl 6.4(L) 6.5 - 8.5 g/dL [facility] Albumin 3.9 3.5 - 5.0 g/dL [facility] Alk phos 252(H) 40 - 130 Units/L [facility] ALT 28 7 - 55 Units/L [facility] AST 27 10 - 50 Units/L [facility] Blood 05/05/2025 4:16 AM CDT 05/05/2025 4:31 AM CDT Bar Gamble MD LAB BLOOD ORDERABLES Final R esult Performing Organization Address City/[facility] Co de Phone Number [facility] Department [place] [address] * (ABNORMAL) Basic metabolic panel (05/05/2025 4:16 AM CDT) Sodium 136 135 - 145 mmol/L Potassium, pl 4.3 3.3 - 4.9 mmol/L [facility] Chloride 95(L) 97 - 110 mmol/L [facility] CO2 30 22 - 32 mmol/L [facility] Anion gap 11 2 - 15 mmol/L [facility] BUN 45(H) 6 - 25 mg/dL [facility] Creatinine 1.55(H) 0.80 - 1.30 mg/dL [facility] Glucose 129 70 - 199 mg/dL [facility] Comment: Interpretive Data Fasting glucose >/= [...] 2022. Calcium 9.8 8.5 - 10.3 mg/dL [facility] Blood 05/05/2025 4:16 AM CDT 05/05/2025 4:31 AM CDT Bar Gamble MD LAB BLOOD ORDERABLES Final R esult Performing Organization Address City/[facility] Co de Phone Number [facility] Department [place] [address] * Oxyhemoglobin, pulmonary artery (05/04/2025 10:07 PM CDT) Oxyhemoglobin, PA 59.6 % Comment: Interpretive Data No reference range established. Current interpretive data was last revised 2020. Blood 05/04/2025 10:0 7 PM CDT 05/04/2025 10:16 PM CDT Bar Gamble MD LAB BLOOD ORDERABLES Final R esult Performing Organization Address City/[facility]/ZIP Co de Phone Number [facility] [place] [address] * (ABNORMAL) Hemoglobin total, pulmonary artery (05/04/2025 10:07 PM CDT) Hemoglobin total, PA 12.1(L) 13.0 - 17.5 g/dL Blood 05/04/2025 10:0 7 PM CDT 05/04/2025 10:16 PM CDT Bar Gamble MD LAB BLOOD ORDERABLES Final R esult Performing Organization Address [facility] Co de Phone Number [facility] [place] [address] * Potassium, whole blood (05/04/2025 10:07 PM CDT) Potassium, bld 3.7 3.3 - 4.9 mmol/L Blood 05/04/2025 10:0 7 PM CDT 05/04/2025 10:16 PM CDT Bar Gamble MD LAB BLOOD ORDERABLES Final R esult Performing Organization Address [facility] de Phone Number [facility] [place] [address] * Lactate, whole blood (05/04/2025 10:07 PM CDT) Lactate, bld 0.9 0.7 - 2.0 mmol/L Blood 05/04/2025 10:0 7 PM CDT 05/04/2025 10:16 PM CDT Bar Gamble MD LAB BLOOD ORDERABLES Final R esult Performing Organization Address [facility] de Phone Number [facility] [place] [address] * Oxyhemoglobin, pulmonary artery (05/04/2025 5:28 PM CDT) Oxyhemoglobin, PA 59.5 % Comment: Interpretive Data No reference range established. Current interpretive data was last revised 2020. Blood 05/04/2025 5:28 PM CDT 05/04/2025 5:40 PM CDT Bar Gamble MD LAB BLOOD ORDERABLES Final R esult Performing Organization Address [facility]/ZIP Co de Phone Number [facility] Department [place] [address] * (ABNORMAL) Hemoglobin total, pulmonary artery (05/04/2025 5:28 PM CDT) Hemoglobin total, PA 12.2(L) 13.0 - 17.5 g/dL Blood 05/04/2025 5:28 PM CDT 05/04/2025 5:40 PM CDT us Bar Gamble MD LAB BLOOD ORDERABLES Final R esult Performing Organization Address City/[facility] [facility] Co de Phone Number DULCE MARIA [facility] [place] [address] * (ABNORMAL) eGFR (05/04/2025 5:28 PM CDT) [...] MD LAB BLOOD ORDERABLES Final R esult [facility] [place] [address] * Lactate, whole blood (05/04/2025 5:28 PM CDT) Lactate, bld 0.7 0.7 - 2.0 mmol/L Blood 05/04/2025 5:28 PM CDT 05/04/2025 5:40 PM CDT us Bar Gamble MD LAB BLOOD ORDERABLES Final R esult Performing Organization Address [facility] Co de Phone Number [facility] [place] [address] * Phosphorus (05/04/2025 5:28 PM CDT) Pathologist [facility] Phosphorus, pl 4.1 2.3 - 4.5 mg/dL Blood 05/04/2025 5:28 PM CDT 05/04/2025 5:47 PM CDT us Bar Gamble MD LAB BLOOD ORDERABLES Final R esult Performing Organization Address [facility] Co de Phone Number [facility] Department [place] [address] * Magnesium (05/04/2025 5:28 PM CDT) Pathologist [facility] Magnesium 2.0 1.4 - 2.5 mg/dL Blood 05/04/2025 5:28 PM CDT 05/04/2025 5:47 PM CDT us Bar Gamble MD LAB BLOOD ORDERABLES Final R esult Performing Organization Address [facility] Co de Phone Number [facility] Department [place] [address] * (ABNORMAL) Basic metabolic panel (05/04/2025 5:28 PM CDT) Sodium 133(L) 135 - 145 mmol/L Potassium, pl 4.3 3.3 - 4.9 mmol/L [facility] Chloride 93(L) 97 - 110 mmol/L [facility] CO2 28 22 - 32 mmol/L [facility] Anion gap 12 2 - 15 mmol/L [facility] BUN 44(H) 6 - 25 mg/dL [facility] Creatinine 1.59(H) 0.80 - 1.30 mg/dL [facility] Glucose 157 70 - 199 mg/dL [facility] Comment: Interpretive Data Fasting glucose >/= [...] 2022. Calcium 9.6 8.5 - 10.3 mg/dL [facility] Blood 05/04/2025 5:28 PM CDT 05/04/2025 5:47 PM CDT us Bar Gamble MD LAB BLOOD ORDERABLES Final R esult [facility] Department [place] [address] * POC Blood Gas and Chemistries, Arterial - (05/04/2025 2:52 PM CDT) K POC 3.9 3.3 - 4.9 mmol/L Comment: Interpretive Data Not all point of care methods assess for hemolysis. Confirm with instrument and retest K+ if not consistent with clinical signs and symptoms. Current Interpretive Data was last revised on 2024. Blood 05/04/2025 2:52 PM CDT 05/04/2025 2:52 PM CDT Zev Cowart MD PhD LAB POCT ORDERABLES - D RISHI Final Result Performing Organization Address [facility] Co de Phone Number [facility] [place] [address] * Oxyhemoglobin, pulmonary artery (05/04/2025 11:53 AM CDT) Oxyhemoglobin, PA 60.9 % Comment: Interpretive Data No reference range established. Current interpretive data was last revised 2020. Blood 05/04/2025 11:5 3 AM CDT 05/04/2025 12:06 PM CDT us Bar Gamble MD LAB BLOOD ORDERABLES Final R esult Performing Organization Address [facility] de Phone Number [facility] Department [place] [address] * (ABNORMAL) Hemoglobin total, pulmonary artery (05/04/2025 11:53 AM CDT) Hemoglobin total, PA 12.4(L) 13.0 - 17.5 g/dL Blood 05/04/2025 11:5 3 AM CDT 05/04/2025 12:06 PM CDT Bar Gamble MD LAB BLOOD ORDERABLES Final R esult Performing Organization Address [facility] de Phone Number [facility] [place] [address] * Lactate, whole blood (05/04/2025 11:53 AM CDT) Lactate, bld 1.2 0.7 - 2.0 mmol/L Blood 05/04/2025 11:5 3 AM CDT 05/04/2025 12:06 PM CDT us Bar Gamble MD LAB BLOOD ORDERABLES Final R esult DULCE MARIA [facility] Department [place] [address] * XR Chest 1 View (05/04/2025 5:55 AM CDT) Anatomical Region Laterality Modality Body, Chest N/A Computed Radiogr aphy 05/04/2025 7:29 AM CDT Impressions 05/04/2025 12:00 PM CDT Comparison with 05/03/2025. Interval advancement of right internal jugular [place]-Jayne catheter into a right lower lobe segmental [...] 05/03/2025. Interval advancement of right internal jugular [place]-Jayne catheter into a right lower lobe segmental [...] ORDERABLES Final R esult Performing Organization Address City/[facility] [place] [address] * (ABNORMAL) Hemoglobin total, pulmonary artery (05/04/2025 5:39 AM CDT) Hemoglobin total, PA 11.5(L) 13.0 - 17.5 g/dL Blood 05/04/2025 5:39 AM CDT 05/04/2025 5:49 AM CDT us Bar Gamble MD LAB BLOOD ORDERABLES Final R esult Performing Organization Address City/[facility] Co de Phone Number [facility] [employer] [place] [address] * Potassium, whole blood (05/04/2025 5:39 AM CDT) Potassium, bld 3.8 3.3 - 4.9 mmol/L Blood 05/04/2025 5:39 AM CDT 05/04/2025 5:49 AM CDT us Bar Gamble MD LAB BLOOD ORDERABLES Final R esult Performing Organization Address City/[facility] Co de Phone Number [facility] [place] [address] * (ABNORMAL) eGFR (05/04/2025 5:39 AM CDT) [...] MD LAB BLOOD ORDERABLES Final R esult [facility] Department [place] [employer] [place] [address] * Lactate, whole blood (05/04/2025 5:39 AM CDT) Lactate, bld 0.7 0.7 - 2.0 mmol/L Blood 05/04/2025 5:39 AM CDT 05/04/2025 5:49 AM CDT us Bar Gamble MD LAB BLOOD ORDERABLES Final R esult Performing Organization Address City/State/[facility] [place] [address] * (ABNORMAL) aPTT (05/04/2025 5:39 AM CDT) [facility] aPTT 59(H) 28 - 38 sec Comment: Interpretive Data Heparin therapeutic range: 66.0 - 100.0 seconds. Range based on correlation with therapeutic heparin activity range of 0.3 - 0.7 Units/mL. Current interpretive data was last revised on 2023. Blood 05/04/2025 5:39 AM CDT 05/04/2025 5:59 AM CDT Narrative [facility] - 05/04/2025 6:09 AM CDT STAT PTT [...] drawn peripherally (not from CVC). Libia Suarez [facility] LAB BLOOD ORDERABLES Final Re sult [facility] Department [place] [address] * (ABNORMAL) CBC without differential (05/04/2025 5:39 AM CDT) [facility] WBC 8.60 3.80 - 9.90 K/cumm Hgb 11.3(L) 13.0 - 17.5 g/dL [facility] Hct 33.8(L) 38.9 - 50.3 % [facility] Plt 200 150 - 400 K/cumm [facility] MPV 11.7 9.1 - 12.3 fL [facility] RBC 4.09(L) 4.30 - 5.80 M/cumm [facility] MCV 82.6 81.3 - 96.4 fL [facility] MCH 27.6 27.1 - 33.3 pg [facility] MCHC 33.4 32.3 - 35.7 g/dL [facility] RDW CV 15.6(H) 11.1 - 14.9 % [facility] RDW SD 47.2 35.7 - 48.1 fL [facility] NRBC abs 0.00 0.00 - 0.01 K/cumm [facility] Blood 05/04/2025 5:39 AM CDT 05/04/2025 5:51 AM CDT Bar Gamble MD LAB BLOOD ORDERABLES Final R esult Performing Organization Address City/[facility] Co de Phone Number [facility] [employer] [place] [address] * Phosphorus (05/04/2025 5:39 AM CDT) Phosphorus, pl 3.3 2.3 - 4.5 mg/dL Blood 05/04/2025 5:39 AM CDT 05/04/2025 5:52 AM CDT Bar Gamble MD LAB BLOOD ORDERABLES Final R esult Performing Organization Address [facility] Co de Phone Number [facility] [employer] [place] [address] * Magnesium (05/04/2025 5:39 AM CDT) Magnesium 2.1 1.4 - 2.5 mg/dL Blood 05/04/2025 5:39 AM CDT 05/04/2025 5:52 AM CDT Bar Gamble MD LAB BLOOD ORDERABLES Final R esult Performing Organization Address [facility] Co de Phone Number [facility] [place] [address] * (ABNORMAL) Hepatic function panel (05/04/2025 5:39 AM CDT) Pathologist [facility] Bilirubin, total 0.7 0.1 - 1.2 mg/dL Bilirubin, direct 0.3 0.1 - 0.3 mg/dL [facility] Protein, pl 6.0(L) 6.5 - 8.5 g/dL [facility] Albumin 3.8 3.5 - 5.0 g/dL [facility] Alk phos 233(H) 40 - 130 Units/L [facility] ALT 28 7 - 55 Units/L [facility] AST 29 10 - 50 Units/L [facility] Blood 05/04/2025 5:39 AM CDT 05/04/2025 5:52 AM CDT us Bar Gamble MD LAB BLOOD ORDERABLES Final R esult [facility] Department [place] [address] * (ABNORMAL) Basic metabolic panel (05/04/2025 5:39 AM CDT) [facility] Sodium 137 135 - 145 mmol/L Potassium, pl 4.1 3.3 - 4.9 mmol/L [facility] Chloride 98 97 - 110 mmol/L [facility] CO2 28 22 - 32 mmol/L [facility] Anion gap 11 2 - 15 mmol/L [facility] BUN 45(H) 6 - 25 mg/dL [facility] Creatinine 1.40(H) 0.80 - 1.30 mg/dL [facility] Glucose 131 70 - 199 mg/dL [facility] Comment: Interpretive Data Fasting glucose >/= [...] 2022. Calcium 9.4 8.5 - 10.3 mg/dL [facility] Blood 05/04/2025 5:39 AM CDT 05/04/2025 5:52 AM CDT us Bar Gamble MD LAB BLOOD ORDERABLES Final R esult Performing Organization Address City/[facility]/ZIP Co de Phone Number [facility] [employer] [place] [address] * Oxyhemoglobin, pulmonary artery (05/03/2025 11:21 PM CDT) Oxyhemoglobin, PA 63.7 % Comment: Interpretive Data No reference range established. Current interpretive data was last revised 2020. Blood 05/03/2025 11:2 1 PM CDT 05/03/2025 11:33 PM CDT us Bar Gamble MD LAB BLOOD ORDERABLES Final R esult Performing Organization Address [facility] [place] [address] * (ABNORMAL) Hemoglobin total, pulmonary artery (05/03/2025 11:21 PM CDT) Hemoglobin total, PA 12.1(L) 13.0 - 17.5 g/dL Blood 05/03/2025 11:2 1 PM CDT 05/03/2025 11:33 PM CDT us Bar Gamble MD LAB BLOOD ORDERABLES Final R esult Performing Organization Address City/[facility] Co de Phone Number [facility] [place] [address] * Potassium, whole blood (05/03/2025 11:21 PM CDT) Potassium, bld 3.8 3.3 - 4.9 mmol/L Blood 05/03/2025 11:2 1 PM CDT 05/03/2025 11:33 PM CDT us Bar Gamble MD LAB BLOOD ORDERABLES Final R esult Performing Organization Address [facility] Co de Phone Number [facility] [employer] [place] [address] * Lactate, whole blood (05/03/2025 11:21 PM CDT) Lactate, bld 0.7 0.7 - 2.0 mmol/L Blood 05/03/2025 11:2 1 PM CDT 05/03/2025 11:33 PM CDT us Bar Gamble MD LAB BLOOD ORDERABLES Final R esult Performing Organization Address [facility] Co de Phone Number [facility] [employer] [place] [address] * Oxyhemoglobin, pulmonary artery (05/03/2025 5:23 PM CDT) Oxyhemoglobin, PA 85.1 % Comment: Interpretive Data No reference range established. Current interpretive data was last revised 2020. Blood 05/03/2025 5:23 PM CDT 05/03/2025 5:32 PM CDT us Bar Gamble MD LAB BLOOD ORDERABLES Final R esult Performing Organization Address [facility] Co de Phone Number [facility] [employer] [place] [address] * (ABNORMAL) Hemoglobin total, pulmonary artery (05/03/2025 5:23 PM CDT) Hemoglobin total, PA 12.1(L) 13.0 - 17.5 g/dL Blood 05/03/2025 5:23 PM CDT 05/03/2025 5:32 PM CDT us Bar Gamble MD LAB BLOOD ORDERABLES Final R esult Performing Organization Address [facility] Co de Phone Number DULCE MARIA [facility] [place] [address] * (ABNORMAL) eGFR (05/03/2025 5:23 PM CDT) [...] Performing Organization Address [facility]/ZIP Co de Phone Number DULCE MARIA [facility] [employer] [place] [address] * Lactate, whole blood (05/03/2025 5:23 PM CDT) Lactate, bld 1.1 0.7 - 2.0 mmol/L Blood 05/03/2025 5:23 PM CDT 05/03/2025 5:32 PM CDT Bar Gamble MD LAB BLOOD ORDERABLES Final R esult Performing Organization Address [facility] Co de Phone Number [facility] [employer] [place] [address] * Phosphorus (05/03/2025 5:23 PM CDT) Pathologist [facility] Phosphorus, pl 3.8 2.3 - 4.5 mg/dL Blood 05/03/2025 5:23 PM CDT 05/03/2025 5:36 PM CDT Bar Gamble MD LAB BLOOD ORDERABLES Final R esult Performing Organization Address [facility] Co de Phone Number [facility] [employer] [place] [address] * Magnesium (05/03/2025 5:23 PM CDT) [facility] Magnesium 2.1 1.4 - 2.5 mg/dL Blood 05/03/2025 5:23 PM CDT 05/03/2025 5:36 PM CDT Bar Gamble MD LAB BLOOD ORDERABLES Final R esult Performing Organization Address [facility] Co de Phone Number [facility] [employer] [place] [address] * (ABNORMAL) Basic metabolic panel (05/03/2025 5:23 PM CDT) [facility] Sodium 138 135 - 145 mmol/L Potassium, pl 3.1(L) 3.3 - 4.9 mmol/L [facility] Chloride 97 97 - 110 mmol/L [facility] CO2 29 22 - 32 mmol/L [facility] Anion gap 12 2 - 15 mmol/L [facility] BUN 45(H) 6 - 25 mg/dL [facility] Creatinine 1.40(H) 0.80 - 1.30 mg/dL [facility] Glucose 141 70 - 199 mg/dL [facility] Comment: Interpretive Data Fasting glucose >/= [...] 2022. Calcium 9.2 8.5 - 10.3 mg/dL [facility] Blood 05/03/2025 5:23 PM CDT 05/03/2025 5:36 PM CDT us Bar Gamble MD LAB BLOOD ORDERABLES Final R esult [facility] Department [place] [employer] [place] [address] * Oxyhemoglobin, pulmonary artery (05/03/2025 11:13 AM CDT) Pathologist WILMAN Becerra 58.6 % Comment: Interpretive Data No reference range established. Current interpretive data was last revised 2020. Blood 05/03/2025 11:1 3 AM CDT 05/03/2025 11:25 AM CDT us Bar Gamble MD LAB BLOOD ORDERABLES Final R esult [facility] Department [place] [employer] [place] [address] * (ABNORMAL) Hemoglobin total, pulmonary artery (05/03/2025 11:13 AM CDT) Pathologist [facility] Hemoglobin total, PA 12.7(L) 13.0 - 17.5 g/dL Blood 05/03/2025 11:1 3 AM CDT 05/03/2025 11:25 AM CDT Bar Gamble MD LAB BLOOD ORDERABLES Final R esult Performing Organization Address City/[facility]/ZIP Co de Phone Number [facility] Department [place] [address] * Lactate, whole blood (05/03/2025 11:13 AM CDT) [facility] Lactate, bld 0.7 0.7 - 2.0 mmol/L Blood 05/03/2025 11:1 3 AM CDT 05/03/2025 11:25 AM CDT Bar Gamble MD LAB BLOOD ORDERABLES Final R esult Performing Organization Address City/[facility] Co de Phone Number [facility] [place] [address] * Infection Prevention Shady auris PCR, surveillance Axilla/Groin (05/03/2025 9:19 AM CDT) [facility] Shady auris DNA Not Detected Not Detected [facility] Comment: Interpretive Data Testing performed by [facility] using the Lucas carlos [id number] Shady auris assay. This assay detects DNA from Shady auris using Real-Time PCR. This assay is laboratory developed and is not cleared by the [place] Food and Drug Administration. The performance characteristics have been verified by the [facility]. Axilla/Groin 05/03/2025 9:19 AM CDT 05/03/2025 11:30 AM CDT Narrative DULCE MARIA [facility] - 05/04/2025 2:12 AM CDT Order placed by [facility] due to ring surveillance. us Instant Order Generic Provider LAB MICROBIOLOGY - GENERAL ORDERABLES Final Result DULCE MARIA [facility] [place] [address] [facility] * XR Chest 1 View (05/03/2025 6:11 AM CDT) Anatomical Region Laterality Modality Body, Chest N/A Digital Radiogra phy 05/03/2025 7:14 AM CDT Impressions 05/03/2025 7:14 AM CDT 1 view chest radiograph, dated 05/02/2025 at 6:39 PM Comparison is made to prior chest radiograph dated 04/30/2025. Right peripherally inserted central venous catheter terminates in the superior cavoatrial junction. Right internal jugular [place]-Jayne catheter has been advanced and terminates in the interlobar pulmonary artery. No significant change in small bilateral pleural effusions with atelectasis. No pneumothorax. Stable heart size. 1 view chest radiograph, dated 05/03/2025 at 5:43 AM Comparison is made to above study. [place]-Jayne catheter is been slightly retracted, still terminating [...] the superior cavoatrial junction. Right internal jugular [place]-Jayne catheter has been advanced and terminates in the interlobar pulmonary artery. No significant change in small bilateral pleural effusions with atelectasis. No pneumothorax. Stable heart size. 1 view chest radiograph, dated 05/03/2025 at 5:43 AM Comparison is made to above study. [place]-Jayne catheter is been slightly retracted, still terminating [...] ORDERABLES Final R esult Performing Organization Address City/[facility]/ZIP Co de Phone Number [facility] Department [place] [employer] [place] [address] * (ABNORMAL) Hemoglobin total, pulmonary artery (05/03/2025 4:42 AM CDT) Hemoglobin total, PA 11.9(L) 13.0 - 17.5 g/dL Blood 05/03/2025 4:42 AM CDT 05/03/2025 5:05 AM CDT Bar Gamble MD LAB BLOOD ORDERABLES Final R esult [facility] Department [place] [address] * (ABNORMAL) eGFR (05/03/2025 4:42 AM CDT) [...] BLOOD ORDERABLES Final R esult DULCE MARIA [facility] Department [place] [employer] [place] [address] * Lactate, whole blood (05/03/2025 4:42 AM CDT) Lactate, bld 0.7 0.7 - 2.0 mmol/L Blood 05/03/2025 4:42 AM CDT 05/03/2025 5:05 AM CDT us Bar Gamble MD LAB BLOOD ORDERABLES Final R esult DULCE MARIA [facility] Department [place] [address] * (ABNORMAL) aPTT (05/03/2025 4:42 AM CDT) aPTT 57(H) 28 - 38 sec Comment: Interpretive Data Heparin therapeutic range: 66.0 - 100.0 seconds. Range based on correlation with therapeutic heparin activity range of 0.3 - 0.7 Units/mL. Current interpretive data was last revised on 2023. Blood 05/03/2025 4:42 AM CDT 05/03/2025 5:21 AM CDT Narrative [facility] - 05/03/2025 5:30 AM CDT STAT PTT [...] peripherally (not from CVC). us Libia Suarez [facility] LAB BLOOD ORDERABLES Final Re sult [facility] [place] [address] * (ABNORMAL) CBC without differential (05/03/2025 4:42 AM CDT) [facility] WBC 8.97 3.80 - 9.90 K/cumm Hgb 11.4(L) 13.0 - 17.5 g/dL [facility] Hct 35.1(L) 38.9 - 50.3 % [facility] Plt 202 150 - 400 K/cumm [facility] MPV 11.7 9.1 - 12.3 fL [facility] RBC 4.22(L) 4.30 - 5.80 M/cumm [facility] MCV 83.2 81.3 - 96.4 fL [facility] MCH 27.0(L) 27.1 - 33.3 pg [facility] MCHC 32.5 32.3 - 35.7 g/dL [facility] RDW CV 15.7(H) 11.1 - 14.9 % [facility] RDW SD 48.0 35.7 - 48.1 fL [facility] NRBC abs 0.00 0.00 - 0.01 K/cumm [facility] Blood 05/03/2025 4:42 AM CDT 05/03/2025 5:15 AM CDT Bar Gamble MD LAB BLOOD ORDERABLES Final R esult Performing Organization Address City/[facility] [place] [address] * Phosphorus (05/03/2025 4:42 AM CDT) Phosphorus, pl 4.1 2.3 - 4.5 mg/dL Blood 05/03/2025 4:42 AM CDT 05/03/2025 5:15 AM CDT us Bar Gamble MD LAB BLOOD ORDERABLES Final R esult Performing Organization Address [facility] Co de Phone Number [facility] [employer] [place] [address] * Magnesium (05/03/2025 4:42 AM CDT) Magnesium 2.2 1.4 - 2.5 mg/dL Blood 05/03/2025 4:42 AM CDT 05/03/2025 5:15 AM CDT Bar Gamble MD LAB BLOOD ORDERABLES Final R esult Performing Organization Address [facility] Co de Phone Number [facility] [employer] [place] [address] * (ABNORMAL) Hepatic function panel (05/03/2025 4:42 AM CDT) [facility] Bilirubin, total 0.6 0.1 - 1.2 mg/dL Bilirubin, direct 0.2 0.1 - 0.3 mg/dL [facility] Comment:Hemolyzed; result ma y be falsely decreased Protein, pl 6.2(L) 6.5 - 8.5 g/dL [facility] Albumin 3.8 3.5 - 5.0 g/dL [facility] Alk phos 240(H) 40 - 130 Units/L [facility] ALT 29 7 - 55 Units/L [facility] AST 40 10 - 50 Units/L [facility] Comment:Hemolyzed; result ma y be falsely elevated Blood 05/03/2025 4:42 AM CDT 05/03/2025 5:15 AM CDT Bar Gamble MD LAB BLOOD ORDERABLES Final R esult [facility] [place] [address] * (ABNORMAL) Basic metabolic panel (05/03/2025 4:42 AM CDT) [facility] Sodium 138 135 - 145 mmol/L Potassium, pl 3.6 3.3 - 4.9 mmol/L [facility] Comment:Hemolyzed; Potassium value may be falsely elevated by as much as 0.3-0.5 mmol/L. Suggest redraw and reanalysis. Chloride 97 97 - 110 mmol/L [facility] CO2 31 22 - 32 mmol/L [facility] Anion gap 10 2 - 15 mmol/L [facility] [facility] BUN 50(H) 6 - 25 mg/dL [facility] Creatinine 1.40(H) 0.80 - 1.30 mg/dL [facility] Glucose 128 70 - 199 mg/dL [facility] Comment: Interpretive Data Fasting glucose >/= [...] 9.5 8.5 - 10.3 mg/dL [facility] Blood 05/03/2025 4:42 AM CDT 05/03/2025 5:15 AM CDT us Bar Gamble MD LAB BLOOD ORDERABLES Final R esult [facility] One [facility] [place] [address] * (ABNORMAL) aPTT (05/03/2025 12:09 AM CDT) aPTT 58(H) 28 - 38 sec Comment: Interpretive Data Heparin therapeutic range: 66.0 - 100.0 seconds. Range based on correlation with therapeutic heparin activity range of 0.3 - 0.7 Units/mL. Current interpretive data was last revised on 2023. Blood 05/03/2025 12:0 9 AM CDT 05/03/2025 12:32 AM CDT Narrative [facility] - 05/03/2025 12:57 AM CDT STAT [...] peripherally (not from CVC). us Libia Suarez NURSE FIRST AID LAB BLOOD ORDERABLES Final Re sult Performing Organization Address City/[facility]/ZIP Co de Phone Number [facility] [place] [address] * Magnesium (05/02/2025 10:07 PM CDT) Magnesium 2.4 1.4 - 2.5 mg/dL Blood 05/02/2025 10:0 7 PM CDT 05/02/2025 10:17 PM CDT us Bar Gamble MD LAB BLOOD ORDERABLES Final R esult Performing Organization Address [facility] Co de Phone Number [facility] [place] [address] * Potassium, whole blood (05/02/2025 10:03 PM CDT) Potassium, bld 4.4 3.3 - 4.9 mmol/L Blood 05/02/2025 10:0 3 PM CDT 05/02/2025 10:13 PM CDT us Bar Gamble MD LAB BLOOD ORDERABLES Final R esult Performing Organization Address [facility] Co de Phone Number [facility] [place] [address] * (ABNORMAL) aPTT (05/02/2025 10:03 PM CDT) aPTT 56(H) 28 - 38 sec Comment: Interpretive Data Heparin therapeutic range: 66.0 - 100.0 seconds. Range based on correlation with therapeutic heparin activity range of 0.3 - 0.7 Units/mL. Current interpretive data was last revised on 2023. Blood 05/02/2025 10:0 3 PM CDT 05/02/2025 10:20 PM CDT Narrative [facility] - 05/02/2025 10:30 PM CDT STAT PTT [...] peripherally (not from CVC). us Libia Suarez NURSE FIRST AID LAB BLOOD ORDERABLES Final Re sult Performing Organization Address [facility] Co de Phone Number [facility] Department [place] [address] * Oxyhemoglobin, pulmonary artery (05/02/2025 8:32 PM CDT) Oxyhemoglobin, PA 66.6 % Comment: Interpretive Data No reference range established. Current interpretive data was last revised 2020. Blood 05/02/2025 8:32 PM CDT 05/02/2025 8:49 PM CDT us Wang Almaraz MD LAB BLOOD ORDERABLES Final R esult Performing Organization Address [facility] Co de Phone Number [facility] Department [place] [address] * (ABNORMAL) Hemoglobin total, pulmonary artery (05/02/2025 8:32 PM CDT) Hemoglobin total, PA 12.4(L) 13.0 - 17.5 g/dL Blood 05/02/2025 8:32 PM CDT 05/02/2025 8:49 PM CDT us Bar Gamble MD LAB BLOOD ORDERABLES Final R esult Performing Organization Address [facility]/State/ZIP Co de Phone Number [facility] One [facility] [place] [address] * XR Chest 1 View (05/02/2025 7:19 PM CDT) Anatomical Region Laterality Modality Body, Chest N/A Digital Radiogra phy 05/03/2025 7:14 AM CDT Impressions 05/03/2025 7:14 AM CDT 1 view chest radiograph, dated 05/02/2025 at 6:39 PM Comparison is made to prior chest radiograph dated 04/30/2025. Right peripherally inserted central venous catheter terminates in the superior cavoatrial junction. Right internal jugular [place]-Jayne catheter has been advanced and terminates in the interlobar pulmonary artery. No significant change in small bilateral pleural effusions with atelectasis. No pneumothorax. Stable heart size. 1 view chest radiograph, dated 05/03/2025 at 5:43 AM Comparison is made to above study. [place]-Jayne catheter is been slightly retracted, still terminating [...] the superior cavoatrial junction. Right internal jugular [place]-Jayne catheter has been advanced and terminates in the interlobar pulmonary artery. No significant change in small bilateral pleural effusions with atelectasis. No pneumothorax. Stable heart size. 1 view chest radiograph, dated 05/03/2025 at 5:43 AM Comparison is made to above study. [place]-Jayne catheter is been slightly retracted, still terminating in the interlobar pulmonary artery. Otherwise, there is no change. Electronically signed by: Kelsey Beauchamp M.D. us Bar Gamble MD IMG XR PROCEDURES Final Resu lt * (ABNORMAL) aPTT (05/02/2025 6:48 PM CDT) [facility] aPTT 48(H) 28 - 38 sec Comment: Interpretive Data Heparin therapeutic range: 66.0 - 100.0 seconds. Range based on correlation with therapeutic heparin activity range of 0.3 - 0.7 Units/mL. Current interpretive data was last revised on 2023. Blood 05/02/2025 6:48 PM CDT 05/02/2025 7:10 PM CDT Narrative [facility] - 05/02/2025 7:19 PM CDT STAT PTT [...] peripherally (not from CVC). us Libia Suarez NURSE FIRST AID LAB BLOOD ORDERABLES Final Re sult [facility] One [facility] [place] [address] * Antibody identification (05/02/2025 6:38 PM CDT) [facility] Antibody ID 1 Anti-CD38 Comment:Panreactive -CD38 on reagent RBCs reacting with anti-CD38 therapy. DTT treatment removes cell surface CD38 and allows detection of common clinically significant antibodies except those against Dilma antigens. TRANSFUSION 2015;[id number] Blood 05/02/2025 6:38 PM CDT 05/02/2025 6:38 PM CDT us Libia Suarez NURSE FIRST AID LAB BLOOD BANK TEST ORDERABLE S Final Result Performing Organization Address City/[facility]/ZIP Co de Phone Number [facility] [employer] [place] [address] * (ABNORMAL) Hemoglobin total, pulmonary artery (05/02/2025 4:24 PM CDT) Hemoglobin total, PA 12.2(L) 13.0 - 17.5 g/dL Blood 05/02/2025 4:24 PM CDT 05/02/2025 4:56 PM CDT us Bar Gamble MD LAB BLOOD ORDERABLES Final R esult Performing Organization Address [facility] Co de Phone Number [facility] [employer] [place] [address] * Oxyhemoglobin, pulmonary artery (05/02/2025 4:21 PM CDT) Oxyhemoglobin, PA 67.7 % Comment: Interpretive Data No reference range established. Current interpretive data was last revised 2020. Blood 05/02/2025 4:21 PM CDT 05/02/2025 4:56 PM CDT us Wang Almaraz MD LAB BLOOD ORDERABLES Final R esult Performing Organization Address City/[facility]/ZIP Co de Phone Number [facility] Department [place] [employer] [place] [address] * (ABNORMAL) eGFR (05/02/2025 4:21 PM CDT) [...] ORDERABLES Final R esult [facility] One [facility] [place] [address] * Blood culture Blood (05/02/2025 4:21 PM CDT) Report Final Report: No growth Blood 05/02/2025 4:21 PM CDT 05/02/2025 5:00 PM CDT Narrative [facility] - 05/07/2025 7:01 AM CDT From [...] performance characteristics have been verified by the [facility] Microbiology Laboratory. For questions about this culture, contact the Microbiology Laboratory at [phone]. Interpretive data was last revised on 24. Bar Gamble MD LAB MICROBIOLOGY - GENERAL O RDERABLES Final Result [facility] One [facility] Department [place] [address] * Blood culture Blood (05/02/2025 4:21 PM CDT) Report Final Report: No growth Blood 05/02/2025 4:21 PM CDT 05/02/2025 5:00 PM CDT Narrative [facility] - 05/07/2025 7:01 AM CDT Collection->Peripheral 1. [...] performance characteristics have been verified by the [facility] Microbiology Laboratory. For questions about this culture, contact the Microbiology Laboratory at [phone]. Interpretive data was last revised on 24. Bra Gamble MD LAB MICROBIOLOGY - GENERAL O RDERABLES Final Result Performing Organization Address [facility] [place] [address] * (ABNORMAL) Type and screen (05/02/2025 4:21 PM CDT) Pathologist [facility] Poppy, indirect Positive(A) ABO Rh O Positive [facility] Blood 05/02/2025 4:21 PM CDT 05/02/2025 5:00 PM CDT Narrative [facility] - 05/02/2025 6:38 PM CDT Has the patient had Daratumumab or Isatuximab in the past 6 months?->Unknown Libia Suarez NP LAB BLOOD BANK TEST ORDERABLE S Final Result Performing Organization Address [facility] de Phone Number [facility] [place] [address] * Phosphorus (05/02/2025 4:21 PM CDT) Pathologist [facility] Phosphorus, pl 3.3 2.3 - 4.5 mg/dL Blood 05/02/2025 4:21 PM CDT 05/02/2025 5:01 PM CDT Bar Gamble MD LAB BLOOD ORDERABLES Final R esult Performing Organization Address [facility] Co de Phone Number [facility] Department [place] [address] * Magnesium (05/02/2025 4:21 PM CDT) Pathologist [facility] Magnesium 2.4 1.4 - 2.5 mg/dL Blood 05/02/2025 4:21 PM CDT 05/02/2025 5:01 PM CDT us Bar Gamble MD LAB BLOOD ORDERABLES Final R esult Performing Organization Address City/[facility] Co de Phone Number [facility] One [facility] Department [place] [address] * (ABNORMAL) Basic metabolic panel (05/02/2025 4:21 PM CDT) [facility] Sodium 138 135 - 145 mmol/L Potassium, pl 3.0(L) 3.3 - 4.9 mmol/L [facility] Chloride 95(L) 97 - 110 mmol/L [facility] CO2 30 22 - 32 mmol/L [facility] Anion gap 13 2 - 15 mmol/L [facility] BUN 47(H) 6 - 25 mg/dL [facility] Creatinine 1.45(H) 0.80 - 1.30 mg/dL [facility] Glucose 200(H) 70 - 199 mg/dL [facility] Comment: Interpretive Data Fasting glucose >/= [...] 2022. Calcium 9.4 8.5 - 10.3 mg/dL [facility] Blood 05/02/2025 4:21 PM CDT 05/02/2025 5:01 PM CDT Bar Gamble MD LAB BLOOD ORDERABLES Final R esult [facility] One [facility] Department [place] [address] * ECG 12 lead (05/02/2025 4:11 PM CDT) Ventricular Rate EKG/Min 105 BPM [facility] Atrial Rate 105 BPM [facility] NM-Interval (MSEC) 226 ms [facility] QRS-Interval (MSEC) 108 ms [facility] QT-Interval (MSEC) 302 ms [facility] QTc 399 ms [facility] P [place] 66 degrees [facility] R [place] -79 degrees [facility] T [place] 84 degrees [facility] Diagnosis Sinus tachycardia with 1st degree A-V [...] SANDOVAL M.D ([id number]) on 05/03/2025 4:32:36 PM [facility] 05/02/2025 4:11 PM CDT 05/03/2025 4:32 PM CDT us Yaakov Lawrence MD PhD ECG ORDERABLES Fi nal Result Performing Organization Address [facility] Co de Phone Number [facility] * RIGHT HEART CATH, RIGHT HEART CATHETERIZATION [...] usual sterile fashion. 3) I provided direct [id number] monitoring of conscious sedation which was administered by an independent trained nurse using Fentanyl 12.5 mcg and Midazolam 0.5 mg. Sedation time 43 min. Local anesthesia with 1% lidocaine was used. 4) Venous access was obtained in theRight Internal Jugular vein using modified Seldinger technique and micropuncture approach. A 8 Guyanese sheath was secured into place. 5) Right heart catheterization was performed with a 7.5 [place]ese VIP Eliel Jayne catheter. The catheter was [...] with the referring physician. Felicitas Rodgers DO Farm Operations Manager Division of Cardiology [facility] Libia Suarez NP CV CARDIAC CATH PROCEDURES Fi nal Result * (ABNORMAL) POCT oxyhemoglobin (05/02/2025 1:25 PM CDT) Pathologist [facility] PYTHON DJANGO DEVELOPER Oxyhemoglobin 56.7(L) >=65.0 % [employer]ELOPER Hemoglobin 11.5(L) 13.0 - 17.5 g/dL [facility] PYTHON DJANGO DEVELOPER O2 content 9.1(L) 15.0 - 22.0 Vol % [facility] Anatomic Site aPOC Pulm Artery [facility] Blood 05/02/2025 1:25 PM CDT 05/02/2025 1:25 PM CDT Vannesa Gibbs MD LAB POCT ORDERABLES - D EVICE Final Result Performing Organization Address City/[facility]/ZIP Co de Phone Number [facility] [employer] [place] [address] * (ABNORMAL) POCT oxyhemoglobin (05/02/2025 1:24 PM CDT) [facility] PYTHON DJANGO DEVELOPER Oxyhemoglobin 55.0(L) >=65.0 % [employer]ON [employer]AN[employer] DEVELOPER Hemoglobin 11.8(L) 13.0 - 17.5 g/dL [facility] PYTHON DJANGO DEVELOPER O2 content 9.0(L) 15.0 - 22.0 Vol % [facility] Anatomic Site aPOC Pulm Artery [facility] Blood 05/02/2025 1:24 PM CDT 05/02/2025 1:24 PM CDT Vannesa Gibbs MD LAB POCT ORDERABLES - D EVICE Final Result Performing Organization Address City/[facility]/ZIP Co de Phone Number [facility] [employer] [place] [address] * Potassium, whole blood (05/02/2025 6:38 AM CDT) Pathologist [facility] Potassium, bld 3.7 3.3 - 4.9 mmol/L Blood 05/02/2025 6:38 AM CDT 05/02/2025 7:30 AM CDT Dinorah Kahn NURSE FIRST AID LAB BLOOD ORDERABLES Final Result Performing Organization Address [facility] de Phone Number [facility] [employer] [place] [address] * (ABNORMAL) aPTT (05/01/2025 9:31 PM CDT) [facility] aPTT 65(H) 28 - 38 sec Comment: Interpretive Data Heparin therapeutic range: 66.0 - 100.0 seconds. Range based on correlation with therapeutic heparin activity range of 0.3 - 0.7 Units/mL. Current interpretive data was last revised on 2023. Blood 05/01/2025 9:31 PM CDT 05/01/2025 9:49 PM CDT Narrative [facility] - 05/01/2025 10:01 PM CDT STAT [...] drawn peripherally (not from CVC). Libia Suarez NURSE FIRST AID LAB BLOOD ORDERABLES Final Re sult Performing Organization Address [facility] Co de Phone Number [facility] Department [place] [address] * (ABNORMAL) eGFR (05/01/2025 9:22 PM CDT) [facility] eGFR 39(L) >=60 mL/min/1. 73 m2 Comment: [...] 9:22 PM CDT 05/01/2025 9:52 PM CDT us Dinorah Kahn NURSE FIRST AID LAB BLOOD ORDERABLES Final Result [facility] One [facility] [place] [address] * (ABNORMAL) CBC without differential (05/01/2025 9:22 PM CDT) [facility] WBC 12.62(H) 3.80 - 9.90 K/cumm Hgb 12.0(L) 13.0 - 17.5 g/dL [facility] Hct 37.0(L) 38.9 - 50.3 % [facility] Plt 233 150 - 400 K/cumm [facility] MPV 12.1 9.1 - 12.3 fL [facility] RBC 4.44 4.30 - 5.80 M/cumm [facility] MCV 83.3 81.3 - 96.4 fL [facility] MCH 27.0(L) 27.1 - 33.3 pg [facility] MCHC 32.4 32.3 - 35.7 g/dL [facility] RDW CV 15.6(H) 11.1 - 14.9 % [facility] RDW SD 47.1 35.7 - 48.1 fL [facility] NRBC abs 0.00 0.00 - 0.01 K/cumm [facility] Blood 05/01/2025 9:22 PM CDT 05/01/2025 9:45 PM CDT Libia Suarez NURSE FIRST AID LAB BLOOD ORDERABLES Final Re sult [facility] [employer] [place] [address] * Phosphorus (05/01/2025 9:22 PM CDT) Phosphorus, pl 3.7 2.3 - 4.5 mg/dL Blood 05/01/2025 9:22 PM CDT 05/01/2025 9:40 PM CDT Libia Suarez NURSE FIRST AID LAB BLOOD ORDERABLES Final Re sult Performing Organization Address City/[facility] Co de Phone Number [facility] [employer] [place] [address] * Magnesium (05/01/2025 9:22 PM CDT) Magnesium 2.1 1.4 - 2.5 mg/dL Blood 05/01/2025 9:22 PM CDT 05/01/2025 9:40 PM CDT Libia Suarez NURSE FIRST AID LAB BLOOD ORDERABLES Final Re sult [facility] [employer] [place] [address] * (ABNORMAL) Hepatic function panel (05/01/2025 9:22 PM CDT) [facility] Bilirubin, total 0.5 0.1 - 1.2 mg/dL Bilirubin, direct 0.3 0.1 - 0.3 mg/dL [facility] Protein, pl 6.6 6.5 - 8.5 g/dL [facility] Albumin 4.1 3.5 - 5.0 g/dL [facility] Alk phos 265(H) 40 - 130 Units/L [facility] ALT 20 7 - 55 Units/L [facility] AST 22 10 - 50 Units/L [facility] Blood 05/01/2025 9:22 PM CDT 05/01/2025 9:40 PM CDT Libia Suarez NURSE FIRST AID LAB BLOOD ORDERABLES Final Re sult [facility] One [facility] Department [place] [address] * (ABNORMAL) Basic metabolic panel (05/01/2025 9:22 PM CDT) [facility] Sodium 135 135 - 145 mmol/L Potassium, pl 4.1 3.3 - 4.9 mmol/L [facility] Chloride 95(L) 97 - 110 mmol/L [facility] CO2 28 22 - 32 mmol/L [facility] Anion gap 12 2 - 15 mmol/L [facility] BUN 49(H) 6 - 25 mg/dL [facility] Creatinine 1.94(H) 0.80 - 1.30 mg/dL [facility] Glucose 189 70 - 199 mg/dL [facility] Comment: Interpretive Data Fasting glucose >/= [...] 2022. Calcium 9.8 8.5 - 10.3 mg/dL [facility] Blood 05/01/2025 9:22 PM CDT 05/01/2025 9:40 PM CDT Dinorah Kahn NP LAB BLOOD ORDERABLES Final Result Performing Organization Address City/[facility] Co de Phone Number [facility] [employer] [place] [address] * Potassium, whole blood (05/01/2025 1:40 PM CDT) Potassium, bld 3.5 3.3 - 4.9 mmol/L Blood 05/01/2025 1:40 PM CDT 05/01/2025 1:49 PM CDT us Dinorah Kahn NP LAB BLOOD ORDERABLES Final Result Performing Organization Address [facility] Co de Phone Number [facility] [employer] [place] [address] * Potassium, whole blood (05/01/2025 4:00 AM CDT) Potassium, bld 3.7 3.3 - 4.9 mmol/L Blood 05/01/2025 4:00 AM CDT 05/01/2025 4:08 AM CDT Dinorah Kahn NP LAB BLOOD ORDERABLES Final Result Performing Organization Address City/[facility] Co de Phone Number [facility] [employer] [place] [address] * (ABNORMAL) eGFR (04/30/2025 8:22 PM CDT) [...] 04/30/2025 8:59 PM CDT us Dinorah Kahn NURSE FIRST AID LAB BLOOD ORDERABLES Final Result [facility] One [facility] [place] [address] * (ABNORMAL) aPTT (04/30/2025 8:22 PM CDT) aPTT 60(H) 28 - 38 sec Comment: Interpretive Data Heparin therapeutic range: 66.0 - 100.0 seconds. Range based on correlation with therapeutic heparin activity range of 0.3 - 0.7 Units/mL. Current interpretive data was last revised on 2023. Blood 04/30/2025 8:22 PM CDT 04/30/2025 9:08 PM CDT Narrative [facility] - 04/30/2025 9:18 PM CDT STAT [...] NP LAB BLOOD ORDERABLES Final Re sult [facility] Department [place] [employer] [place] [address] * (ABNORMAL) CBC without differential (04/30/2025 8:22 PM CDT) [facility] WBC 9.67 3.80 - 9.90 K/cumm Hgb 12.2(L) 13.0 - 17.5 g/dL [facility] Hct 37.4(L) 38.9 - 50.3 % [facility] Plt 207 150 - 400 K/cumm [facility] MPV 12.4(H) 9.1 - 12.3 fL [facility] RBC 4.46 4.30 - 5.80 M/cumm [facility] MCV 83.9 81.3 - 96.4 fL [facility] MCH 27.4 27.1 - 33.3 pg [facility] MCHC 32.6 32.3 - 35.7 g/dL [facility] RDW CV 15.7(H) 11.1 - 14.9 % [facility] RDW SD 48.4(H) 35.7 - 48.1 fL [facility] NRBC abs 0.00 0.00 - 0.01 K/cumm [facility] Blood 04/30/2025 8:22 PM CDT 04/30/2025 9:00 PM CDT Libia Suarez NP LAB BLOOD ORDERABLES Final Re sult [facility] [place] [address] * Phosphorus (04/30/2025 8:22 PM CDT) Phosphorus, pl 4.0 2.3 - 4.5 mg/dL Blood 04/30/2025 8:22 PM CDT 04/30/2025 8:59 PM CDT Libia Suarez NURSE FIRST AID LAB BLOOD ORDERABLES Final Re sult Performing Organization Address City/[facility]/ZIP Co de Phone Number [facility] [place] [address] * Magnesium (04/30/2025 8:22 PM CDT) Pathologist [facility] Magnesium 2.0 1.4 - 2.5 mg/dL Blood 04/30/2025 8:22 PM CDT 04/30/2025 8:59 PM CDT Libia Suarez NURSE FIRST AID LAB BLOOD ORDERABLES Final Re sult Performing Organization Address [facility] de Phone Number [facility] [employer] [place] [address] * (ABNORMAL) Hepatic function panel (04/30/2025 8:22 PM CDT) Pathologist [facility] Bilirubin, total 0.5 0.1 - 1.2 mg/dL Bilirubin, direct 0.3 0.1 - 0.3 mg/dL [facility] Protein, pl 6.5 6.5 - 8.5 g/dL [facility] Albumin 4.1 3.5 - 5.0 g/dL [facility] Alk phos 300(H) 40 - 130 Units/L [facility] ALT 24 7 - 55 Units/L [facility] AST 27 10 - 50 Units/L [facility] Blood 04/30/2025 8:22 PM CDT 04/30/2025 8:59 PM CDT Libia Suarez NURSE FIRST AID LAB BLOOD ORDERABLES Final Re sult [facility] [place] [address] * (ABNORMAL) Basic metabolic panel (04/30/2025 8:22 PM CDT) Sodium 135 135 - 145 mmol/L Potassium, pl 4.7 3.3 - 4.9 mmol/L [facility] Chloride 97 97 - 110 mmol/L [facility] CO2 26 22 - 32 mmol/L [facility] Anion gap 12 2 - 15 mmol/L [facility] [facility] BUN 40(H) 6 - 25 mg/dL [facility] Creatinine 1.73(H) 0.80 - 1.30 mg/dL [facility] Glucose 258(H) 70 - 199 mg/dL [facility] Comment: Interpretive Data Fasting glucose >/= [...] 2022. Calcium 9.7 8.5 - 10.3 mg/dL [facility] Blood 04/30/2025 8:22 PM CDT 04/30/2025 8:59 PM CDT Dinorah Kahn NURSE FIRST AID LAB BLOOD ORDERABLES Final Result [facility] [place] [address] * Potassium, whole blood (04/30/2025 5:27 PM CDT) Potassium, bld 4.9 3.3 - 4.9 mmol/L Blood 04/30/2025 5:27 PM CDT 04/30/2025 5:51 PM CDT us Dinorah Kahn NP LAB BLOOD ORDERABLES Final Result Performing Organization Address [facility] Co de Phone Number DULCE MARIA [facility] [place] [address] * Infection Prevention Shady auris PCR, surveillance Axilla/Groin (04/30/2025 9:12 AM CDT) Shady auris DNA Not Detected Not Detected [facility] Comment: Interpretive Data Testing performed by [facility] using the Lucas carlos 6800 Shady auris assay. This assay detects DNA from Shady auris using Real-Time PCR. This assay is laboratory developed and is not cleared by the [facility] Food and Drug Administration. The performance characteristics have been verified by the [facility]. Axilla/Groin 04/30/2025 9:12 AM CDT 04/30/2025 9:51 AM CDT Narrative DULCE MARIA [facility] - 05/01/2025 2:26 AM CDT Order placed by [facility] due to ring surveillance. us Instant Order Generic Provider LAB MICROBIOLOGY - GENERAL ORDERABLES Final Result Performing Organization Address [facility] Co de Phone Number DULCE MARIA [facility] Department [place] [address] [facility] * Oxyhemoglobin, pulmonary artery (04/30/2025 9:12 AM CDT) Oxyhemoglobin, PA 72.0 % Comment: Interpretive Data No reference range established. Current interpretive data was last revised 2020. Blood 04/30/2025 9:12 AM CDT 04/30/2025 9:21 AM CDT us Wang Almaraz MD LAB BLOOD ORDERABLES Final R esult Performing Organization Address City/[facility]/ZIP Co de Phone Number DULCE MARIA [facility] Department [place] [address] * (ABNORMAL) Hemoglobin total, pulmonary artery (04/30/2025 9:12 AM CDT) Hemoglobin total, PA 12.6(L) 13.0 - 17.5 g/dL Blood 04/30/2025 9:12 AM CDT 04/30/2025 9:21 AM CDT us Wang Almaraz MD LAB BLOOD ORDERABLES Final R esult Performing Organization Address [facility] Co de Phone Number DULCE MARIA [facility] [place] [address] * (ABNORMAL) eGFR (04/30/2025 9:12 AM CDT) [...] LAB BLOOD ORDERABLES Final Result DULCE MARIA [facility] Department [place] [address] * (ABNORMAL) Basic metabolic panel (04/30/2025 9:12 AM CDT) Sodium 136 135 - 145 mmol/L Potassium, pl 3.4 3.3 - 4.9 mmol/L [facility] Chloride 99 97 - 110 mmol/L [facility] CO2 27 22 - 32 mmol/L [facility] Anion gap 10 2 - 15 mmol/L [facility] BUN 33(H) 6 - 25 mg/dL [facility] Creatinine 1.44(H) 0.80 - 1.30 mg/dL [facility] Glucose 227(H) 70 - 199 mg/dL [facility] Comment: Interpretive Data Fasting glucose >/= [...] 2022. Calcium 9.4 8.5 - 10.3 mg/dL [facility] Blood 04/30/2025 9:12 AM CDT 04/30/2025 9:50 AM CDT Dinorah Kahn NP LAB BLOOD ORDERABLES Final Result Performing Organization Address City/[facility]/ZIP Co de Phone Number DULCE MARIA [facility] Radha [facility] Department [place] [address] * XR Chest 1 View (04/30/2025 8:50 AM CDT) Anatomical Region Laterality Modality Body, Chest N/A Computed Radiogr aphy 04/30/2025 9:49 AM CDT Impressions 04/30/2025 9:54 AM CDT The current study is compared with the prior radiograph dated 04/29/2025. A [place]-Jayne catheter is in place, tip overlies the [...] with the prior radiograph dated 04/29/2025. A [place]ne catheter is in place, tip overlies the [...] signed by: Juanito Brandt M.D. Dinorah Kahn NURSE FIRST AID IMG XR PROCEDURES Final Res ult * (ABNORMAL) aPTT (04/30/2025 6:01 AM CDT) aPTT 62(H) 28 - 38 sec Comment: Interpretive Data Heparin therapeutic range: 66.0 - 100.0 seconds. Range based on correlation with therapeutic heparin activity range of 0.3 - 0.7 Units/mL. Current interpretive data was last revised on 2023. Blood 04/30/2025 6:01 AM CDT 04/30/2025 6:47 AM CDT Narrative DULCE MARIA [facility] - 04/30/2025 7:09 AM CDT STAT PTT [...] drawn peripherally (not from CVC). Libia Suarez NURSE FIRST AID LAB BLOOD ORDERABLES Final Re sult [facility] One [facility] Department [place] [address] * (ABNORMAL) aPTT (04/30/2025 3:36 AM CDT) aPTT 59(H) 28 - 38 sec Comment: Interpretive Data Heparin therapeutic range: 66.0 - 100.0 seconds. Range based on correlation with therapeutic heparin activity range of 0.3 - 0.7 Units/mL. Current interpretive data was last revised on 2023. Blood 04/30/2025 3:36 AM CDT 04/30/2025 3:50 AM CDT Narrative DULCE MARIA [facility] - 04/30/2025 4:19 AM CDT STAT PTT [...] ORDERABLES Final Re sult Performing Organization Address [facility] Co de Phone Number [facility] Department [place] [address] * (ABNORMAL) aPTT (04/29/2025 11:45 PM CDT) [facility] aPTT 39(H) 28 - 38 sec Comment: Interpretive Data Heparin therapeutic range: 66.0 - 100.0 seconds. Range based on correlation with therapeutic heparin activity range of 0.3 - 0.7 Units/mL. Current interpretive data was last revised on 2023. Blood 04/29/2025 11:4 5 PM CDT 04/30/2025 12:40 AM CDT [facility] - 04/30/2025 12:52 AM CDT STAT PTT [...] ORDERABLES Final Re sult Performing Organization Address [facility]/ZIP Co de Phone Number [facility] Department [place] [address] * Antibody identification (04/29/2025 9:31 PM CDT) [facility] Antibody ID 1 Anti-CD38 Comment:Panreactive -CD38 on reagent RBCs reacting with anti-CD38 therapy. DTT treatment removes cell surface CD38 and allows detection of common clinically significant antibodies except those against [place] antigens. TRANSFUSION 2015;[id number] Blood 04/29/2025 9:31 PM CDT 04/29/2025 9:31 PM CDT us Libia Suarez NURSE FIRST AID LAB BLOOD BANK TEST ORDERABLE S Final Result Performing Organization Address City/[facility]/ZIP Co de Phone Number [facility] Department [place] [employer] [place] [address] * Oxyhemoglobin, pulmonary artery (04/29/2025 7:58 PM CDT) Oxyhemoglobin, PA 66.9 % Comment: Interpretive Data No reference range established. Current interpretive data was last revised 2020. Blood 04/29/2025 7:58 PM CDT 04/29/2025 8:25 PM CDT us Wang Almaraz MD LAB BLOOD ORDERABLES Final R esult Performing Organization Address [facility] Co de Phone Number [facility] [employer] [place] [address] * (ABNORMAL) eGFR (04/29/2025 7:58 PM CDT) eGFR 49(L) >=60 mL/min/1. 73 [...] Kahn NP LAB BLOOD ORDERABLES Final Result [facility] One [facility] Department [place] [address] * (ABNORMAL) Differential, auto (04/29/2025 7:58 PM CDT) Neutrophil abs 6.85(H) 1.50 - 6.50 K/cumm Imm gran abs 0.03 0.00 - 0.10 K/cumm [facility] Lymphocyte abs 0.79(L) 0.80 - 3.30 K/cumm [facility] Monocyte abs 0.55 0.20 - 0.80 K/cumm [facility] Eosinophil abs 0.15 0.00 - 0.50 K/cumm [facility] Basophil abs 0.04 0.00 - 0.10 K/cumm [facility] Neutrophil pct 81.4 % [facility] Comment: Interpretive Data Percent cell count reference ranges are not reported, since discordance with absolute values may lead to misinterpretation of CBC data. Current Interpretive Data was last revised on 2018. Imm gran pct 0.4 % [facility] Comment: Interpretive Data Percent cell count reference ranges are not reported, since discordance with absolute values may lead to misinterpretation of CBC data. Current Interpretive Data was last revised on 2018. Lymphocyte pct 9.4 % [facility] Comment: Interpretive Data Percent cell count reference ranges are not reported, since discordance with absolute values may lead to misinterpretation of CBC data. Current Interpretive Data was last revised on 2018. Monocyte pct 6.5 % [facility] Comment: Interpretive Data Percent cell count reference ranges are not reported, since discordance with absolute values may lead to misinterpretation of CBC data. Current Interpretive Data was last revised on 2018. Eosinophil pct 1.8 % [facility] Comment: Interpretive Data Percent cell count reference ranges are not reported, since discordance with absolute values may lead to misinterpretation of CBC data. Current Interpretive Data was last revised on 2018. Basophil pct 0.5 % DULCE MARIA [facility] Comment: Interpretive Data Percent cell count reference ranges are not reported, since discordance with absolute values may lead to misinterpretation of CBC data. Current Interpretive Data was last revised on 2018. Blood 04/29/2025 7:58 PM CDT 04/29/2025 8:30 PM CDT Vannesa Gibbs MD LAB BLOOD ORDERABLES Fi nal Result [facility] One [facility] Department [place] [address] * CBC with auto differential (04/29/2025 7:58 PM CDT) WBC See Comment 3.80 - 9.90 Comment:Credited, duplicate test. Hgb See Comment 13.0 - 17.5 [facility] Comment:Credited, duplicate test. Hct See Comment 38.9 - 50.3 [facility] Comment:Credited, duplicate test. Plt See Comment 150 - 400 [facility] Comment:Credited, duplicate test. RBC See Comment 4.30 - 5.80 [facility] Comment:Credited, duplicate test. MCV See Comment 81.3 - 96.4 [facility] Comment:Credited, duplicate test. MCH See Comment 27.1 - 33.3 [facility] Comment:Credited, duplicate test. MCHC See Comment 32.3 - 35.7 [facility] Comment:Credited, duplicate test. Blood 04/29/2025 7:58 PM CDT 04/29/2025 8:30 PM CDT Vannesa Gibbs MD LAB BLOOD ORDERABLES Fi nal Result Performing Organization Address [facility] de Phone Number [facility] Department [place] [address] * (ABNORMAL) aPTT (04/29/2025 7:58 PM CDT) [facility] aPTT 49(H) 28 - 38 sec Comment: Interpretive Data Heparin therapeutic range: 66.0 - 100.0 seconds. Range based on correlation with therapeutic heparin activity range of 0.3 - 0.7 Units/mL. Current interpretive data was last revised on 2023. Blood 04/29/2025 7:58 PM CDT 04/29/2025 8:32 PM CDT Narrative [facility] - 04/29/2025 8:42 PM CDT STAT PTT [...] be drawn peripherally (not from CVC). Libia Suarze NP LAB BLOOD ORDERABLES Final Re sult Performing Organization Address [facility] Co de Phone Number [facility] Department [place] [address] * (ABNORMAL) CBC without differential (04/29/2025 7:58 PM CDT) [facility] WBC 8.43 3.80 - 9.90 K/cumm Hgb 12.1(L) 13.0 - 17.5 g/dL [facility] Hct 37.0(L) 38.9 - 50.3 % [facility] Plt 187 150 - 400 K/cumm [facility] MPV 11.9 9.1 - 12.3 fL [facility] RBC 4.48 4.30 - 5.80 M/cumm [facility] MCV 82.6 81.3 - 96.4 fL [facility] MCH 27.0(L) 27.1 - 33.3 pg [facility] MCHC 32.7 32.3 - 35.7 g/dL [facility] RDW CV 15.8(H) 11.1 - 14.9 % [facility] RDW SD 48.1 35.7 - 48.1 fL [facility] NRBC abs 0.00 0.00 - 0.01 K/cumm [facility] Blood 04/29/2025 7:58 PM CDT 04/29/2025 8:27 PM CDT Libia Suarez NP LAB BLOOD ORDERABLES Final Re sult Performing Organization Address City/[facility]/ZIP Co de Phone Number [facility] Department [place] [employer] [place] [address] * (ABNORMAL) Type and screen (04/29/2025 7:58 PM CDT) ABO Rh O Positive Poppy, indirect Positive(A) [facility] Blood 04/29/2025 7:58 PM CDT 04/29/2025 8:29 PM CDT Narrative [facility] - 04/29/2025 9:31 PM CDT Has the patient had Daratumumab or Isatuximab in the past 6 months?->Unknown Libia Suarez NP LAB BLOOD BANK TEST ORDERABLE S Final Result Performing Organization Address City/[facility]/ZIP Co de Phone Number [facility] Department [place] [employer] [place] [address] * Phosphorus (04/29/2025 7:58 PM CDT) Phosphorus, pl 3.6 2.3 - 4.5 mg/dL Blood 04/29/2025 7:58 PM CDT 04/29/2025 8:27 PM CDT Libia Suarez NURSE FIRST AID LAB BLOOD ORDERABLES Final Re sult Performing Organization Address City/[facility]/ZIP Co de Phone Number [facility] [employer] [place] [address] * Magnesium (04/29/2025 7:58 PM CDT) Magnesium 2.0 1.4 - 2.5 mg/dL Blood 04/29/2025 7:58 PM CDT 04/29/2025 8:27 PM CDT Libia Suarez NURSE FIRST AID LAB BLOOD ORDERABLES Final Re sult Performing Organization Address [facility] Co de Phone Number [facility] [employer] [place] [address] * (ABNORMAL) Hepatic function panel (04/29/2025 7:58 PM CDT) Bilirubin, total 0.6 0.1 - 1.2 mg/dL Bilirubin, direct 0.3 0.1 - 0.3 mg/dL [facility] Protein, pl 6.4(L) 6.5 - 8.5 g/dL [facility] Albumin 4.0 3.5 - 5.0 g/dL [facility] Alk phos 283(H) 40 - 130 Units/L [facility] ALT 19 7 - 55 Units/L [facility] AST 20 10 - 50 Units/L [facility] Blood 04/29/2025 7:58 PM CDT 04/29/2025 8:27 PM CDT Libia Suarez NURSE FIRST AID LAB BLOOD ORDERABLES Final Re sult Performing Organization Address City/[facility] Co de Phone Number [facility] [place] [address] * (ABNORMAL) Basic metabolic panel (04/29/2025 7:58 PM CDT) Sodium 137 135 - 145 mmol/L Potassium, pl 3.7 3.3 - 4.9 mmol/L [facility] Chloride 99 97 - 110 mmol/L [facility] CO2 28 22 - 32 mmol/L [facility] Anion gap 10 2 - 15 mmol/L [facility] BUN 34(H) 6 - 25 mg/dL [facility] Creatinine 1.59(H) 0.80 - 1.30 mg/dL [facility] Glucose 159 70 - 199 mg/dL [facility] Comment: Interpretive Data Fasting glucose >/= [...] 2022. Calcium 9.5 8.5 - 10.3 mg/dL [facility] Blood 04/29/2025 7:58 PM CDT 04/29/2025 8:27 PM CDT Dinorah Kahn NP LAB BLOOD ORDERABLES Final Result [facility] One [facility] [place] [address] * XR Chest 1 View (04/29/2025 10:38 AM CDT) Anatomical Region Laterality Modality Body, Chest N/A Computed Radiogr aphy 04/29/2025 11:3 6 AM CDT Impressions 04/29/2025 11:36 AM CDT The current study is compared with the prior radiograph dated 04/28/2025. Right peripherally inserted central venous catheter tip at the superior vena cava. A [place]-Jayne catheter is in place, tip overlies the [...] tip at the superior vena cava. A [place]-Jayne catheter is in place, tip overlies the main pulmonary artery. Small bilateral pleural effusions with mild bibasilar atelectasis. No pneumothorax. Heart size is within normal limits. Dictated by: Neel Nelson MD The radiology attending physician has personally reviewed this study, and had reviewed and/or edited this written report and agrees with it. Electronically signed by: Juanito Brandt M.D. us Dinorah Kahn NURSE FIRST AID IMG XR PROCEDURES Final Res ult * Oxyhemoglobin, pulmonary artery (04/29/2025 7:58 AM CDT) Oxyhemoglobin, PA 60.7 % Comment: Interpretive Data No reference range established. Current interpretive data was last revised 2020. Blood 04/29/2025 7:58 AM CDT 04/29/2025 8:13 AM CDT us Wang Almaraz MD LAB BLOOD ORDERABLES Final R esult [facility] One [facility] Department [place] [address] * (ABNORMAL) Hemoglobin total, pulmonary artery (04/29/2025 7:58 AM CDT) Hemoglobin total, PA 12.4(L) 13.0 - 17.5 g/dL Blood 04/29/2025 7:58 AM CDT 04/29/2025 8:13 AM CDT us Wang Almaraz MD LAB BLOOD ORDERABLES Final R esult Performing Organization Address City/[facility]/ZIP Co [facility] [place] [address] * (ABNORMAL) Lactate (04/29/2025 7:58 AM CDT) Lactate 0.6(L) 0.7 - 2.0 mmol/L Blood 04/29/2025 7:58 AM CDT 04/29/2025 8:18 AM CDT us Libia Suarez NURSE FIRST AID LAB BLOOD ORDERABLES Final Re sult Performing Organization Address [facility] Co de Phone Number [facility] Department [place] [address] * eGFR (04/29/2025 7:58 AM CDT) eGFR [...] Inclusion of Race in Diagnosing Kidney Disease, SN 2020). The CKD-EPI equation should not be used for patients with unstable renal function and has not been validated in children and those over 70. Current interpretive data was last reviewed 2021. Blood 04/29/2025 7:58 AM CDT 04/29/2025 8:18 AM CDT Libia Suarez NURSE FIRST AID LAB BLOOD ORDERABLES Final Re sult Performing Organization Address City/[facility]/ZIP Co de Phone Number [facility] [employer] [place] [address] * Magnesium (04/29/2025 7:58 AM CDT) Pathologist [facility] Magnesium 2.1 1.4 - 2.5 mg/dL Blood 04/29/2025 7:58 AM CDT 04/29/2025 8:18 AM CDT Libia Suarez NURSE FIRST AID LAB BLOOD ORDERABLES Final Re sult Performing Organization Address [facility] Co de Phone Number [facility] [employer] [place] [address] * (ABNORMAL) Comprehensive metabolic panel (04/29/2025 7:58 AM CDT) Sodium 138 135 - 145 mmol/L Potassium, pl 4.0 3.3 - 4.9 mmol/L [facility] Chloride 101 97 - 110 mmol/L [facility] CO2 27 22 - 32 mmol/L [facility] Anion gap 10 2 - 15 mmol/L [facility] BUN 31(H) 6 - 25 mg/dL [facility] Creatinine 1.36(H) 0.80 - 1.30 mg/dL [facility] Glucose 114 70 - 199 mg/dL [facility] Comment: Interpretive Data Fasting glucose >/= [...] 2022. Calcium 9.4 8.5 - 10.3 mg/dL [facility] Bilirubin, total 0.7 0.1 - 1.2 mg/dL [facility] Protein, pl 6.1(L) 6.5 - 8.5 g/dL [facility] Albumin 3.8 3.5 - 5.0 g/dL [facility] Alk phos 264(H) 40 - 130 Units/L [facility] ALT 18 7 - 55 Units/L [facility] AST 22 10 - 50 Units/L [facility] Blood 04/29/2025 7:58 AM CDT 04/29/2025 8:18 AM CDT us Libia Suarez NURSE FIRST AID LAB BLOOD ORDERABLES Final Re sult [facility] Department [place] [employer] [place] [address] * Oxyhemoglobin, pulmonary artery (04/28/2025 9:58 PM CDT) Oxyhemoglobin, PA 54.5 % Comment: Interpretive Data No reference range established. Current interpretive data was last revised 2020. Blood 04/28/2025 9:58 PM CDT 04/28/2025 10:13 PM CDT us Wang Almaraz MD LAB BLOOD ORDERABLES Final R esult [facility] Department [place] [address] * Hemoglobin total, pulmonary artery (04/28/2025 9:58 PM CDT) Hemoglobin total, PA 13.6 13.0 - 17.5 g/dL Blood 04/28/2025 9:58 PM CDT 04/28/2025 10:13 PM CDT us Wang Almaraz MD LAB BLOOD ORDERABLES Final R esult Performing Organization Address City/[facility]/ZIP Co de Phone Number DULCE MARIA [facility] Department [place] [employer] [place] [address] * (ABNORMAL) eGFR (04/28/2025 9:58 PM CDT) Pathologist [facility] eGFR 47(L) >=60 mL/min/1. 73 m2 Comment: [...] 9:58 PM CDT 04/28/2025 10:15 PM CDT us Dinorah Kahn NP LAB BLOOD ORDERABLES Final Result Performing Organization Address City/[facility]/ZIP Co de Phone Number DULCE MARIA [facility] Department [place] [address] * (ABNORMAL) aPTT (04/28/2025 9:58 PM CDT) [facility] aPTT 62(H) 28 - 38 sec Comment: Interpretive Data Heparin therapeutic range: 66.0 - 100.0 seconds. Range based on correlation with therapeutic heparin activity range of 0.3 - 0.7 Units/mL. Current interpretive data was last revised on 2023. Blood 04/28/2025 9:58 PM CDT 04/28/2025 10:16 PM CDT Narrative [facility] - 04/28/2025 10:25 PM CDT STAT PTT [...] peripherally (not from CVC). us Libia Suarez NURSE FIRST AID LAB BLOOD ORDERABLES Final Re sult [facility] One [facility] Department [place] [address] * (ABNORMAL) CBC without differential (04/28/2025 9:58 PM CDT) [facility] WBC 8.88 3.80 - 9.90 K/cumm Hgb 12.8(L) 13.0 - 17.5 g/dL [facility] Hct 39.8 38.9 - 50.3 % [facility] Plt 216 150 - 400 K/cumm [facility] MPV 11.7 9.1 - 12.3 fL [facility] RBC 4.74 4.30 - 5.80 M/cumm [facility] MCV 84.0 81.3 - 96.4 fL [facility] MCH 27.0(L) 27.1 - 33.3 pg [facility] MCHC 32.2(L) 32.3 - 35.7 g/dL [facility] RDW CV 15.9(H) 11.1 - 14.9 % [facility] RDW SD 49.0(H) 35.7 - 48.1 fL [facility] NRBC abs 0.00 0.00 - 0.01 K/cumm [facility] Blood 04/28/2025 9:58 PM CDT 04/28/2025 10:15 PM CDT Libia Suarez NURSE FIRST AID LAB BLOOD ORDERABLES Final Re sult Performing Organization Address City/[facility] Co de Phone Number [facility] [employer] [place] [address] * Phosphorus (04/28/2025 9:58 PM CDT) Phosphorus, pl 3.6 2.3 - 4.5 mg/dL Blood 04/28/2025 9:58 PM CDT 04/28/2025 10:15 PM CDT Libia Suarez NURSE FIRST AID LAB BLOOD ORDERABLES Final Re sult Performing Organization Address [facility] Co de Phone Number [facility] [employer] [place] [address] * Magnesium (04/28/2025 9:58 PM CDT) Magnesium 2.2 1.4 - 2.5 mg/dL Blood 04/28/2025 9:58 PM CDT 04/28/2025 10:15 PM CDT Libia Suarez NURSE FIRST AID LAB BLOOD ORDERABLES Final Re sult Performing Organization Address City/[facility] Co de Phone Number [facility] [place] [address] * (ABNORMAL) Hepatic function panel (04/28/2025 9:58 PM CDT) Pathologist [facility] Bilirubin, total 0.6 0.1 - 1.2 mg/dL Bilirubin, direct 0.3 0.1 - 0.3 mg/dL [facility] Protein, pl 6.5 6.5 - 8.5 g/dL [facility] Albumin 4.1 3.5 - 5.0 g/dL [facility] Alk phos 285(H) 40 - 130 Units/L [facility] ALT 21 7 - 55 Units/L [facility] AST 20 10 - 50 Units/L [facility] Blood 04/28/2025 9:58 PM CDT 04/28/2025 10:15 PM CDT Libia Suarez NURSE FIRST AID LAB BLOOD ORDERABLES Final Re sult [facility] [place] [address] * (ABNORMAL) Basic metabolic panel (04/28/2025 9:58 PM CDT) Pathologist [facility] Sodium 138 135 - 145 mmol/L Potassium, pl 4.4 3.3 - 4.9 mmol/L [facility] Chloride 98 97 - 110 mmol/L [facility] CO2 28 22 - 32 mmol/L [facility] Anion gap 12 2 - 15 mmol/L [facility] BUN 36(H) 6 - 25 mg/dL [facility] Creatinine 1.65(H) 0.80 - 1.30 mg/dL [facility] Glucose 134 70 - 199 mg/dL [facility] Comment: Interpretive Data Fasting glucose >/= [...] 2022. Calcium 9.3 8.5 - 10.3 mg/dL [facility] Blood 04/28/2025 9:58 PM CDT 04/28/2025 10:15 PM CDT us Dinorah Kahn NP LAB BLOOD ORDERABLES Final Result Performing Organization Address City/[facility] Co de Phone Number [facility] Department [place] [address] * Potassium, whole blood (04/28/2025 12:19 PM CDT) Pathologist [facility] Potassium, bld 4.3 3.3 - 4.9 mmol/L Blood 04/28/2025 12:1 9 PM CDT 04/28/2025 12:50 PM CDT us Dinorah Kahn NP LAB BLOOD ORDERABLES Final Result Performing Organization Address [facility] [place] [address] * Oxyhemoglobin, pulmonary artery (04/28/2025 8:22 AM CDT) Pathologist [facility] Oxyhemoglobin, PA 66.4 % Comment: Interpretive Data No reference range established. Current interpretive data was last revised 2020. Blood 04/28/2025 8:22 AM CDT 04/28/2025 8:38 AM CDT us Wang Almaraz MD LAB BLOOD ORDERABLES Final R esult Performing Organization Address [facility] Co de Phone Number [facility] Department [place] [address] * (ABNORMAL) Hemoglobin total, pulmonary artery (04/28/2025 8:22 AM CDT) Pathologist [facility] Hemoglobin total, PA 12.2(L) 13.0 - 17.5 g/dL Blood 04/28/2025 8:22 AM CDT 04/28/2025 8:38 AM CDT us Wang Almaraz MD LAB BLOOD ORDERABLES Final R esult Performing Organization Address City/[facility]/ZIP [facility] [place] [address] * eGFR (04/28/2025 8:22 AM CDT) [facility] eGFR 69 >=60 mL/min/1. 73 m2 Comment: [...] Performing Organization Address [facility]/ZIP Co de Phone Number [facility] [place] [address] * (ABNORMAL) Basic metabolic panel (04/28/2025 8:22 AM CDT) Sodium 138 135 - 145 mmol/L Potassium, pl 3.9 3.3 - 4.9 mmol/L [facility] Chloride 101 97 - 110 mmol/L [facility] CO2 26 22 - 32 mmol/L [facility] Anion gap 11 2 - 15 mmol/L [facility] BUN 27(H) 6 - 25 mg/dL [facility] Creatinine 1.21 0.80 - 1.30 mg/dL [facility] Glucose 172 70 - 199 mg/dL [facility] Comment: Interpretive Data Fasting glucose >/= [...] 2022. Calcium 8.6 8.5 - 10.3 mg/dL [facility] Blood 04/28/2025 8:22 AM CDT 04/28/2025 8:41 AM CDT us Dinorah Kahn NP LAB BLOOD ORDERABLES Final Result [facility] [place] [address] * XR Chest 1 View (04/28/2025 8:10 AM CDT) Anatomical Region Laterality Modality Body, Chest N/A Computed Radiogr aphy 04/29/2025 10:2 4 AM CDT Impressions 04/29/2025 11:03 AM CDT Comparison with 04/27/2025. Left internal jugular [place]-Jayne catheter in the proximal right pulmonary artery. [...] IMPRESSION: Comparison with 04/27/2025. Left internal jugular [place]-Jayne catheter in the proximal right pulmonary artery. [...] by: Juanito Brandt M.D. us Dinorah Kahn NURSE FIRST AID IMG XR PROCEDURES Final Res ult * Potassium, whole blood (04/28/2025 6:33 AM CDT) Potassium, bld 3.8 3.3 - 4.9 mmol/L Blood 04/28/2025 6:33 AM CDT 04/28/2025 6:45 AM CDT Dinorah Kahn NP LAB BLOOD ORDERABLES Final Result [facility] [place] [address] * Oxyhemoglobin, pulmonary artery (04/27/2025 9:06 PM CDT) Oxyhemoglobin, PA 57.7 % Comment: Interpretive Data No reference range established. Current interpretive data was last revised 2020. Blood 04/27/2025 9:06 PM CDT 04/27/2025 9:21 PM CDT Wang Almaraz MD LAB BLOOD ORDERABLES Final R esult Performing Organization Address City/[facility] Co de Phone Number DULCE MARIA [facility] Department [place] [address] * (ABNORMAL) Hemoglobin total, pulmonary artery (04/27/2025 9:06 PM CDT) Hemoglobin total, PA 12.6(L) 13.0 - 17.5 g/dL Blood 04/27/2025 9:06 PM CDT 04/27/2025 9:21 PM CDT Wang Almaraz MD LAB BLOOD ORDERABLES Final R esult Performing Organization Address [facility] Co de Phone Number [facility] Department [place] [address] * eGFR (04/27/2025 9:06 PM CDT) eGFR [...] 9:06 PM CDT 04/27/2025 9:21 PM CDT Dinorah Kahn NURSE FIRST AID LAB BLOOD ORDERABLES Final Result Performing Organization Address [facility] Co de Phone Number DULCE MARIA [facility] Department [place] [address] * (ABNORMAL) aPTT (04/27/2025 9:06 PM CDT) Pathologist [facility] aPTT 60(H) 28 - 38 sec Comment: Interpretive Data Heparin therapeutic range: 66.0 - 100.0 seconds. Range based on correlation with therapeutic heparin activity range of 0.3 - 0.7 Units/mL. Current interpretive data was last revised on 2023. Blood 04/27/2025 9:06 PM CDT 04/27/2025 9:36 PM CDT Narrative [facility] - 04/27/2025 9:45 PM CDT STAT PTT [...] drawn peripherally (not from CVC). Libia Suarez NURSE FIRST AID LAB BLOOD ORDERABLES Final Re sult Performing Organization Address City/[facility]/ZIP Co de Phone Number [facility] Department [place] [address] * (ABNORMAL) CBC without differential (04/27/2025 9:06 PM CDT) Pathologist [facility] WBC 7.86 3.80 - 9.90 K/cumm Hgb 12.3(L) 13.0 - 17.5 g/dL [facility] Hct 37.6(L) 38.9 - 50.3 % [facility] Plt 219 150 - 400 K/cumm [facility] MPV 11.8 9.1 - 12.3 fL [facility] RBC 4.57 4.30 - 5.80 M/cumm [facility] MCV 82.3 81.3 - 96.4 fL [facility] MCH 26.9(L) 27.1 - 33.3 pg [facility] MCHC 32.7 32.3 - 35.7 g/dL [facility] RDW CV 15.9(H) 11.1 - 14.9 % [facility] RDW SD 47.8 35.7 - 48.1 fL [facility] NRBC abs 0.00 0.00 - 0.01 K/cumm [facility] Blood 04/27/2025 9:06 PM CDT 04/27/2025 9:22 PM CDT Libia Suarez NURSE FIRST AID LAB BLOOD ORDERABLES Final Re sult [facility] Department [place] [employer] [place] [address] * Phosphorus (04/27/2025 9:06 PM CDT) Phosphorus, pl 3.9 2.3 - 4.5 mg/dL Blood 04/27/2025 9:06 PM CDT 04/27/2025 9:21 PM CDT Libia Suarez NURSE FIRST AID LAB BLOOD ORDERABLES Final Re sult [facility] [employer] [place] [address] * Magnesium (04/27/2025 9:06 PM CDT) Magnesium 2.2 1.4 - 2.5 mg/dL Blood 04/27/2025 9:06 PM CDT 04/27/2025 9:21 PM CDT Libia Suarez NURSE FIRST AID LAB BLOOD ORDERABLES Final Re sult Performing Organization Address [facility] Co de Phone Number [facility] [place] [address] * (ABNORMAL) Hepatic function panel (04/27/2025 9:06 PM CDT) Bilirubin, total 0.6 0.1 - 1.2 mg/dL Bilirubin, direct 0.3 0.1 - 0.3 mg/dL [facility] Protein, pl 6.1(L) 6.5 - 8.5 g/dL [facility] Albumin 3.9 3.5 - 5.0 g/dL [facility] Alk phos 264(H) 40 - 130 Units/L [facility] ALT 21 7 - 55 Units/L [facility] AST 24 10 - 50 Units/L [facility] Blood 04/27/2025 9:06 PM CDT 04/27/2025 9:21 PM CDT Libia Suarez NURSE FIRST AID LAB BLOOD ORDERABLES Final Re sult Performing Organization Address [facility] de Phone Number [facility] [place] [address] * (ABNORMAL) Basic metabolic panel (04/27/2025 9:06 PM CDT) Sodium 137 135 - 145 mmol/L Potassium, pl 4.2 3.3 - 4.9 mmol/L [facility] Chloride 97 97 - 110 mmol/L [facility] CO2 29 22 - 32 mmol/L [facility] Anion gap 11 2 - 15 mmol/L [facility] BUN 34(H) 6 - 25 mg/dL [facility] Creatinine 1.33(H) 0.80 - 1.30 mg/dL [facility] Glucose 123 70 - 199 mg/dL [facility] Comment: Interpretive Data Fasting glucose >/= [...] 2022. Calcium 9.2 8.5 - 10.3 mg/dL [facility] Blood 04/27/2025 9:06 PM CDT 04/27/2025 9:21 PM CDT us Dinorah Kahn NP LAB BLOOD ORDERABLES Final Result Performing Organization Address [facility] Co de Phone Number [facility] Department [place] [address] * Oxyhemoglobin, pulmonary artery (04/27/2025 8:55 AM CDT) Oxyhemoglobin, PA 64.0 % Comment: Interpretive Data No reference range established. Current interpretive data was last revised 2020. Blood 04/27/2025 8:55 AM CDT 04/27/2025 9:08 AM CDT us Wang Almaraz MD LAB BLOOD ORDERABLES Final R esult Performing Organization Address City/[facility]/ZIP Co de Phone Number [facility] Department [place] [employer] [place] [address] * (ABNORMAL) Hemoglobin total, pulmonary artery (04/27/2025 8:55 AM CDT) Hemoglobin total, PA 12.4(L) 13.0 - 17.5 g/dL Blood 04/27/2025 8:55 AM CDT 04/27/2025 9:08 AM CDT us Wang Almaraz MD LAB BLOOD ORDERABLES Final R esult Performing Organization Address City/[facility]/ZIP Co de Phone Number [facility] [place] [address] * eGFR (04/27/2025 8:55 AM CDT) eGFR [...] BLOOD ORDERABLES Final Result Performing Organization Address City/[facility]/ZIP Co de Phone Number [facility] [place] [address] * (ABNORMAL) Lactate, whole blood (04/27/2025 8:55 AM CDT) Lactate, bld 2.1(H) 0.7 - 2.0 mmol/L Blood 04/27/2025 8:55 AM CDT 04/27/2025 9:08 AM CDT us Vannesa Gibbs MD LAB BLOOD ORDERABLES Fi nal Result [facility] Department [place] [address] * (ABNORMAL) Basic metabolic panel (04/27/2025 8:55 AM CDT) Pathologist [facility] Sodium 135 135 - 145 mmol/L Potassium, pl 4.2 3.3 - 4.9 mmol/L [facility] Chloride 97 97 - 110 mmol/L [facility] CO2 28 22 - 32 mmol/L [facility] Anion gap 10 2 - 15 mmol/L [facility] BUN 30(H) 6 - 25 mg/dL [facility] Creatinine 1.28 0.80 - 1.30 mg/dL [facility] Glucose 186 70 - 199 mg/dL [facility] Comment: Interpretive Data Fasting glucose >/= [...] 2022. Calcium 9.4 8.5 - 10.3 mg/dL [facility] Blood 04/27/2025 8:55 AM CDT 04/27/2025 9:09 AM CDT us Dinorah Kahn NP LAB BLOOD ORDERABLES Final Result Performing Organization Address [facility]/ZIP Co de Phone Number [facility] Department [place] [address] * XR Chest 1 View (04/27/2025 8:23 AM CDT) Anatomical Region Laterality Modality Body, Chest N/A Computed Radiogr aphy 04/27/2025 3:50 PM CDT Impressions 04/27/2025 3:50 PM CDT Comparison to 04/26/2025. Left internal jugular [place]-Jayne catheter terminates in right pulmonary artery. Right [...] IMPRESSION: Comparison to 04/26/2025. Left internal jugular [place]-Jayne catheter terminates in right pulmonary artery. Right upper extremity peripherally inserted central catheter terminates in the lower superior vena cava. Mild cardiomegaly. Bibasilar subsegmental atelectasis with trace bilateral pleural effusions, unchanged from the prior examination. No new consolidation. No pneumothorax. Electronically signed by: Juanito Brandt M.D. Dinorah Kahn NP IMG XR PROCEDURES Final Res ult * Antibody identification (04/27/2025 12:30 AM CDT) Antibody ID 1 Anti-CD38 Comment:Panreactive -CD38 on reagent RBCs reacting with anti-CD38 therapy. DTT treatment removes cell surface CD38 and allows detection of common clinically significant antibodies except those against [place] antigens. TRANSFUSION 2015;55;[id number] Blood 04/27/2025 12:3 0 AM CDT 04/27/2025 12:30 AM CDT Libia Suarez NP LAB BLOOD BANK TEST ORDERABLE S Final Result [facility] [employer] [place] [address] * Oxyhemoglobin, pulmonary artery (04/26/2025 10:18 PM CDT) Oxyhemoglobin, PA 66.6 % Comment: Interpretive Data No reference range established. Current interpretive data was last revised 2020. Blood 04/26/2025 10:1 8 PM CDT 04/26/2025 10:33 PM CDT us Wang Almaraz MD LAB BLOOD ORDERABLES Final R esult Performing Organization Address [facility] Co de [place] [address] * (ABNORMAL) Hemoglobin total, pulmonary artery (04/26/2025 10:18 PM CDT) Hemoglobin total, PA 12.8(L) 13.0 - 17.5 g/dL Blood 04/26/2025 10:1 8 PM CDT 04/26/2025 10:33 PM CDT us Wang Almaraz MD LAB BLOOD ORDERABLES Final R esult Performing Organization Address [facility] Co de Phone Number [facility] [employer] [place] [address] * eGFR (04/26/2025 10:18 PM CDT) eGFR [...] BLOOD ORDERABLES Final Result Performing Organization Address City/[facility]/ZIP Co de Phone Number [facility] Department [place] [address] * Lactate, whole blood (04/26/2025 10:18 PM CDT) Lactate, bld 0.8 0.7 - 2.0 mmol/L Blood 04/26/2025 10:1 8 PM CDT 04/26/2025 10:33 PM CDT us Wang Almaraz MD LAB BLOOD ORDERABLES Final R esult Performing Organization Address City/[facility]/ZIP Co de Phone Number [facility] Department [place] [address] * (ABNORMAL) aPTT (04/26/2025 10:18 PM CDT) aPTT 61(H) 28 - 38 sec Comment: Interpretive Data Heparin therapeutic range: 66.0 - 100.0 seconds. Range based on correlation with therapeutic heparin activity range of 0.3 - 0.7 Units/mL. Current interpretive data was last revised on 2023. Blood 04/26/2025 10:1 8 PM CDT 04/26/2025 10:38 PM CDT Narrative [facility] - 04/26/2025 10:47 PM CDT STAT PTT [...] drawn peripherally (not from CVC). Libia Suarez NURSE FIRST AID LAB BLOOD ORDERABLES Final Re sult [facility] Department [place] [address] * (ABNORMAL) CBC without differential (04/26/2025 10:18 PM CDT) [facility] WBC 7.97 3.80 - 9.90 K/cumm Hgb 12.3(L) 13.0 - 17.5 g/dL [facility] Hct 38.2(L) 38.9 - 50.3 % [facility] Plt 212 150 - 400 K/cumm [facility] MPV 11.8 9.1 - 12.3 fL [facility] RBC 4.55 4.30 - 5.80 M/cumm [facility] MCV 84.0 81.3 - 96.4 fL [facility] MCH 27.0(L) 27.1 - 33.3 pg [facility] MCHC 32.2(L) 32.3 - 35.7 g/dL [facility] RDW CV 15.9(H) 11.1 - 14.9 % [facility] RDW SD 48.7(H) 35.7 - 48.1 fL [facility] NRBC abs 0.00 0.00 - 0.01 K/cumm [facility] Blood 04/26/2025 10:1 8 PM CDT 04/26/2025 11:25 PM CDT Libia Suarez NP LAB BLOOD ORDERABLES Final Re sult Performing Organization Address [facility] [place] [address] * (ABNORMAL) Type and screen (04/26/2025 10:18 PM CDT) Pathologist [facility] Poppy, indirect Positive(A) ABO Rh O Positive [facility] Blood 04/26/2025 10:1 8 PM CDT 04/26/2025 11:06 PM CDT Narrative [facility] - 04/27/2025 12:30 AM CDT Has the patient had Daratumumab or Isatuximab in the past 6 months?->Unknown Libia Suarez NP LAB BLOOD BANK TEST ORDERABLE S Final Result Performing Organization Address [facility] [place] [address] * Phosphorus (04/26/2025 10:18 PM CDT) Pathologist [facility] Phosphorus, pl 4.3 2.3 - 4.5 mg/dL Blood 04/26/2025 10:1 8 PM CDT 04/26/2025 10:37 PM CDT Libia Suarez NP LAB BLOOD ORDERABLES Final Re sult Performing Organization Address [facility] [place] [address] * Magnesium (04/26/2025 10:18 PM CDT) [facility] Magnesium 2.2 1.4 - 2.5 mg/dL Blood 04/26/2025 10:1 8 PM CDT 04/26/2025 10:37 PM CDT Libia Suarez NURSE FIRST AID LAB BLOOD ORDERABLES Final Re sult Performing Organization Address City/[facility] Co de Phone Number [facility] [place] [address] * (ABNORMAL) Hepatic function panel (04/26/2025 10:18 PM CDT) Bilirubin, total 0.6 0.1 - 1.2 mg/dL Bilirubin, direct 0.3 0.1 - 0.3 mg/dL [facility] Protein, pl 6.1(L) 6.5 - 8.5 g/dL [facility] Albumin 3.7 3.5 - 5.0 g/dL [facility] Alk phos 272(H) 40 - 130 Units/L [facility] ALT 21 7 - 55 Units/L [facility] AST 22 10 - 50 Units/L [facility] Blood 04/26/2025 10:1 8 PM CDT 04/26/2025 10:37 PM CDT Libia Suarez NURSE FIRST AID LAB BLOOD ORDERABLES Final Re sult Performing Organization Address [facility] de Phone Number [facility] [place] [address] * (ABNORMAL) Basic metabolic panel (04/26/2025 10:18 PM CDT) Sodium 136 135 - 145 mmol/L Potassium, pl 4.5 3.3 - 4.9 mmol/L [facility] Chloride 99 97 - 110 mmol/L [facility] CO2 28 22 - 32 mmol/L [facility] Anion gap 9 2 - 15 mmol/L [facility] BUN 32(H) 6 - 25 mg/dL [facility] Creatinine 1.35(H) 0.80 - 1.30 mg/dL [facility] Glucose 129 70 - 199 mg/dL [facility] Comment: Interpretive Data Fasting glucose >/= [...] 2022. Calcium 9.4 8.5 - 10.3 mg/dL [facility] Blood 04/26/2025 10:1 8 PM CDT 04/26/2025 10:37 PM CDT Dinorah Kahn NURSE FIRST AID LAB BLOOD ORDERABLES Final Result Performing Organization Address [facility] Co de Phone Number [facility] [place] [address] * Infection Prevention Shady auris PCR, surveillance Axilla/Groin (04/26/2025 12:42 PM CDT) Shady auris DNA Not Detected Not Detected [facility] Comment: Interpretive Data Testing performed by [facility] using the Lucas carlos [id number] Shady auris assay. This assay detects DNA from Shady auris using Real-Time PCR. This assay is laboratory developed and is not cleared by the [place] Food and Drug Administration. The performance characteristics have been verified by the [facility]. Axilla/Groin 04/26/2025 12:4 2 PM CDT 04/26/2025 1:06 PM CDT Narrative [facility] - 04/27/2025 5:13 AM CDT Order placed by [facility] due to ring surveillance. us Instant Order Generic Provider LAB MICROBIOLOGY - GENERAL ORDERABLES Final Result Performing Organization Address [facility] Co de Phone Number [facility] [place] [address] [facility] * XR Chest 1 View (04/26/2025 9:13 AM CDT) Anatomical Region Laterality Modality Body, Chest N/A Computed Radiogr aphy 04/26/2025 10:1 2 AM CDT Impressions 04/26/2025 10:59 AM CDT Comparison with 04/25/2025. Right peripherally inserted central venous catheter at the superior cavoatrial junction. Left internal jugular [place]-Jayne catheter overlies main pulmonary artery. Unchanged small [...] the superior cavoatrial junction. Left internal jugular [place]-Jayne catheter overlies main pulmonary artery. Unchanged small bilateral pleural effusions with associated atelectasis. No pneumothorax. Stable cardiomediastinal silhouette. Dictated by: Magali Cotton MD The radiology attending physician has personally reviewed this study, and had reviewed and/or edited this written report and agrees with it. Electronically signed by: Jessica Jackson M.D. Dinorah Kahn NURSE FIRST AID IMG XR PROCEDURES Final Res ult * Oxyhemoglobin, pulmonary artery (04/26/2025 8:37 AM CDT) Oxyhemoglobin, PA 68.4 % Comment: Interpretive Data No reference range established. Current interpretive data was last revised 2020. Blood 04/26/2025 8:37 AM CDT 04/26/2025 8:46 AM CDT Wang Almaraz MD LAB BLOOD ORDERABLES Final R esult [facility] [place] [address] * (ABNORMAL) Hemoglobin total, pulmonary artery (04/26/2025 8:37 AM CDT) Hemoglobin total, PA 12.3(L) 13.0 - 17.5 g/dL Blood 04/26/2025 8:37 AM CDT 04/26/2025 8:46 AM CDT Wang Almaraz MD LAB BLOOD ORDERABLES Final R esult Performing Organization Address [facility] Co de Phone Number [facility]St[facility] [place] [address] * eGFR (04/26/2025 8:37 AM CDT) eGFR [...] BLOOD ORDERABLES Final Result Performing Organization Address City/[facility]/ZIP Co de Phone Number [facility] Department [place] [address] * Lactate, whole blood (04/26/2025 8:37 AM CDT) Pathologist [facility] Lactate, bld 1.8 0.7 - 2.0 mmol/L Blood 04/26/2025 8:37 AM CDT 04/26/2025 8:46 AM CDT Wang Almaraz MD LAB BLOOD ORDERABLES Final R esult Performing Organization Address [facility] Co de Phone Number [facility] Department [place] [address] * Basic metabolic panel (04/26/2025 8:37 AM CDT) Pathologist [facility] Sodium 138 135 - 145 mmol/L Potassium, pl 3.8 3.3 - 4.9 mmol/L [facility] Chloride 101 97 - 110 mmol/L [facility] CO2 28 22 - 32 mmol/L [facility] Anion gap 9 2 - 15 mmol/L [facility] BUN 25 6 - 25 mg/dL [facility] Creatinine 1.29 0.80 - 1.30 mg/dL [facility] Glucose 189 70 - 199 mg/dL [facility] Comment: Interpretive Data Fasting glucose >/= [...] 2022. Calcium 9.4 8.5 - 10.3 mg/dL [facility] Blood 04/26/2025 8:37 AM CDT 04/26/2025 8:49 AM CDT Dinorah Kahn NURSE FIRST AID LAB BLOOD ORDERABLES Final Result Performing Organization Address [facility] Co de Phone Number [facility] [place] [address] * (ABNORMAL) aPTT (04/25/2025 10:05 PM CDT) Pathologist [facility] aPTT 55(H) 28 - 38 sec Comment: Interpretive Data Heparin therapeutic range: 66.0 - 100.0 seconds. Range based on correlation with therapeutic heparin activity range of 0.3 - 0.7 Units/mL. Current interpretive data was last revised on 2023. Blood 04/25/2025 10:0 5 PM CDT 04/25/2025 10:41 PM CDT Narrative [facility] - 04/25/2025 10:51 PM CDT STAT [...] drawn peripherally (not from CVC). Libia Suarez NURSE FIRST AID LAB BLOOD ORDERABLES Final Re sult Performing Organization Address [facility] Co de Phone Number [facility] Department [place] [address] * Oxyhemoglobin, pulmonary artery (04/25/2025 8:14 PM CDT) [facility] Oxyhemoglobin, PA 66.4 % Comment: Interpretive Data No reference range established. Current interpretive data was last revised 2020. Blood 04/25/2025 8:14 PM CDT 04/25/2025 8:23 PM CDT Wang Almaraz MD LAB BLOOD ORDERABLES Final R esult Performing Organization Address City/[facility]/ZIP Co de Phone Number [facility] Department [place] [employer] [place] [address] * Potassium, whole blood (04/25/2025 8:14 PM CDT) Pathologist [facility] Potassium, bld 4.2 3.3 - 4.9 mmol/L Blood 04/25/2025 8:14 PM CDT 04/25/2025 8:23 PM CDT Dinorah Kahn NP LAB BLOOD ORDERABLES Final Result Performing Organization Address [facility] Co de Phone Number [facility] Department [place] [address] * (ABNORMAL) eGFR (04/25/2025 8:14 PM CDT) Pathologist [facility] eGFR 55(L) >=60 mL/min/1. 73 m2 Comment: [...] 8:14 PM CDT 04/25/2025 8:32 PM CDT Dinorah Kahn NP LAB BLOOD ORDERABLES Final Result Performing Organization Address [facility] Co de Phone Number [facility] Department [place] [employer] [place] [address] * Lactate, whole blood (04/25/2025 8:14 PM CDT) Lactate, bld 1.7 0.7 - 2.0 mmol/L Blood 04/25/2025 8:14 PM CDT 04/25/2025 8:23 PM CDT Wang Almaraz MD LAB BLOOD ORDERABLES Final R esult Performing Organization Address [facility] de Phone Number [facility] [place] [address] * (ABNORMAL) aPTT (04/25/2025 8:14 PM CDT) aPTT 103(H) 28 - 38 sec Comment: Interpretive Data Heparin therapeutic range: 66.0 - 100.0 seconds. Range based on correlation with therapeutic heparin activity range of 0.3 - 0.7 Units/mL. Current interpretive data was last revised on 2023. Blood 04/25/2025 8:14 PM CDT 04/25/2025 8:24 PM CDT [facility]ative [facility] - 04/25/[facility] 8:50 PM CDT STAT [...] ORDERABLES Final Re sult Performing Organization Address City/[facility]/ZIP Co de Phone Number [facility] Department [place] [address] * (ABNORMAL) CBC without differential (04/25/2025 8:14 PM CDT) [facility] WBC 8.86 3.80 - 9.90 K/cumm Hgb 12.3(L) 13.0 - 17.5 g/dL [facility] Hct 38.6(L) 38.9 - 50.3 % [facility] Plt 210 150 - 400 K/cumm [facility] MPV 11.5 9.1 - 12.3 fL [facility] RBC 4.57 4.30 - 5.80 M/cumm [facility] MCV 84.5 81.3 - 96.4 fL [facility] MCH 26.9(L) 27.1 - 33.3 pg [facility] MCHC 31.9(L) 32.3 - 35.7 g/dL [facility] RDW CV 15.8(H) 11.1 - 14.9 % [facility] RDW SD 48.8(H) 35.7 - 48.1 fL [facility] NRBC abs 0.00 0.00 - 0.01 K/cumm [facility] Blood 04/25/2025 8:14 PM CDT 04/25/2025 8:32 PM CDT Libia Suarez NP LAB BLOOD ORDERABLES Final Re sult Performing Organization Address [facility]/ZIP Co de Phone Number [facility] [place] [address] * Phosphorus (04/25/2025 8:14 PM CDT) Pathologist [facility] Phosphorus, pl 3.7 2.3 - 4.5 mg/dL Blood 04/25/2025 8:14 PM CDT 04/25/2025 8:32 PM CDT Libia Suarez NURSE FIRST AID LAB BLOOD [place] [address] * Magnesium (04/25/2025 8:14 PM CDT) Pathologist [facility] Magnesium 1.9 1.4 - 2.5 mg/dL Blood 04/25/2025 8:14 PM CDT 04/25/2025 8:32 PM CDT Libia Suarez NURSE FIRST AID LAB BLOOD ORDERABLES Final Re sult Performing Organization Address [facility] [place] [address] * (ABNORMAL) Hepatic function panel (04/25/2025 8:14 PM CDT) Pathologist [facility] Bilirubin, total 0.6 0.1 - 1.2 mg/dL Bilirubin, direct 0.3 0.1 - 0.3 mg/dL [facility] Protein, pl 6.2(L) 6.5 - 8.5 g/dL [facility] Albumin 3.8 3.5 - 5.0 g/dL [facility] Alk phos 267(H) 40 - 130 Units/L [facility] ALT 21 7 - 55 Units/L [facility] AST 22 10 - 50 Units/L [facility] Blood 04/25/2025 8:14 PM CDT 04/25/2025 8:32 PM CDT us Libia Suarez NURSE FIRST AID LAB BLOOD ORDERABLES Final Re sult [facility] Department [place] [address] * (ABNORMAL) Basic metabolic panel (04/25/2025 8:14 PM CDT) Sodium 135 135 - 145 mmol/L Potassium, pl 4.3 3.3 - 4.9 mmol/L [facility] Chloride 98 97 - 110 mmol/L [facility] CO2 30 22 - 32 mmol/L [facility] Anion gap 7 2 - 15 mmol/L [facility] BUN 31(H) 6 - 25 mg/dL [facility] Creatinine 1.46(H) 0.80 - 1.30 mg/dL [facility] Glucose 192 70 - 199 mg/dL [facility] Comment: Interpretive Data Fasting glucose >/= [...] 2022. Calcium 9.4 8.5 - 10.3 mg/dL [facility] Blood 04/25/2025 8:14 PM CDT 04/25/2025 8:32 PM CDT us Dinorah Kahn NURSE FIRST AID LAB BLOOD ORDERABLES Final [facility] [place] [address] * XR Chest 1 View (04/25/2025 2:22 PM CDT) Anatomical Region Laterality Modality Body, Chest N/A Computed Radiogr aphy 04/25/2025 2:50 PM CDT Impressions 04/25/2025 3:15 PM CDT Comparison with 04/25/2025 8:15 AM. Left internal jugular [place] catheter tip overlies the proximal right main [...] with 04/25/2025 8:15 AM. Left internal jugular [place] catheter tip overlies the proximal right main [...] signed by: Jessica Jackson M.D. Farida Flores NURSE FIRST AID IMG XR PROCEDURES Final Resu lt * XR Chest 1 View (04/25/2025 9:38 AM CDT) Anatomical Region Laterality Modality Body, Chest N/A Digital Radiogra phy 04/25/2025 11:2 7 AM CDT Impressions 04/25/2025 11:52 AM CDT The current study is compared with the prior radiograph dated 04/24/2025. Right peripherally inserted central venous catheter with tip overlying the superior vena cava. A [place] catheter is in place, tip overlies the [...] tip overlying the superior vena cava. A [place] catheter is in place, tip overlies the main pulmonary artery. Small bilateral pleural effusions and bibasilar atelectasis. The heart and mediastinal contours are stable. Dictated by: Neel Nelson MD The radiology attending physician has personally reviewed this study, and had reviewed and/or edited this written report and agrees with it. Electronically signed by: Jessica Jackson M.D. us Dinorah Kahn NURSE [facility] AID IMG XR PROCEDURES Final Res ult * Oxyhemoglobin, pulmonary artery (04/25/2025 8:42 AM CDT) Oxyhemoglobin, PA 71.0 % Comment: Interpretive Data No reference range established. Current interpretive data was last revised 2020. Blood 04/25/2025 8:42 AM CDT 04/25/2025 8:51 AM CDT us Wang Almaraz MD LAB BLOOD ORDERABLES Final R esult [facility] [place] [address] * (ABNORMAL) Hemoglobin total, pulmonary artery (04/25/2025 8:42 AM CDT) Pathologist [facility] Hemoglobin total, PA 12.7(L) 13.0 - 17.5 g/dL Blood 04/25/2025 8:42 AM CDT 04/25/2025 8:51 AM CDT us Wang Almaraz MD LAB BLOOD ORDERABLES Final R esult Performing Organization Address [facility]/ZIP Co de Phone Number [facility] Department [place] [employer] [place] [address] * eGFR (04/25/2025 8:42 AM CDT) [facility] eGFR 62 >=60 mL/min/1. 73 m2 Comment: [...] BLOOD ORDERABLES Final Result Performing Organization Address City/[facility]/ZIP Co de Phone Number [facility] [place] [address] * Lactate, whole blood (04/25/2025 8:42 AM CDT) Lactate, bld 1.7 0.7 - 2.0 mmol/L Blood 04/25/2025 8:42 AM CDT 04/25/2025 8:51 AM CDT us Wang Almaraz MD LAB BLOOD ORDERABLES Final R esult Performing Organization Address City/[facility]/ZIP Co de Phone Number [facility] Department [place] [address] * (ABNORMAL) Basic metabolic panel (04/25/2025 8:42 AM CDT) Pathologist [facility] Sodium 139 135 - 145 mmol/L Potassium, pl 3.8 3.3 - 4.9 mmol/L [facility] Chloride 100 97 - 110 mmol/L [facility] CO2 29 22 - 32 mmol/L [facility] Anion gap 10 2 - 15 mmol/L [facility] BUN 27(H) 6 - 25 mg/dL [facility] Creatinine 1.31(H) 0.80 - 1.30 mg/dL [facility] Glucose 183 70 - 199 mg/dL [facility] Comment: Interpretive Data Fasting glucose >/= [...] 2022. Calcium 9.4 8.5 - 10.3 mg/dL [facility] Blood 04/25/2025 8:42 AM CDT 04/25/2025 9:03 AM CDT us Dinorah Kahn NP LAB BLOOD ORDERABLES Final Result Performing Organization Address [facility] de Phone Number [facility] Department [place] [address] * Potassium, whole blood (04/25/2025 6:47 AM CDT) Potassium, bld 3.9 3.3 - 4.9 mmol/L Blood 04/25/2025 6:47 AM CDT 04/25/2025 7:30 AM CDT us Dinorah Kahn NP LAB BLOOD ORDERABLES Final Result Performing Organization Address City/[facility] [place] [address] * Oxyhemoglobin, pulmonary artery (04/24/2025 8:08 PM CDT) Oxyhemoglobin, PA 66.4 % Comment: Interpretive Data No reference range established. Current interpretive data was last revised 2020. Blood 04/24/2025 8:08 PM CDT 04/24/2025 8:18 PM CDT Wang Almaraz MD LAB BLOOD ORDERABLES Final R esult Performing Organization Address [facility] Co de Phone Number [facility] [employer] [place] [address] * Potassium, whole blood (04/24/2025 8:08 PM CDT) Potassium, bld 3.9 3.3 - 4.9 mmol/L Blood 04/24/2025 8:08 PM CDT 04/24/2025 8:18 PM CDT us Dinorah Kahn NP LAB BLOOD ORDERABLES Final Result Performing Organization Address City/[facility] Co de Phone Number [facility] [place] [address] * (ABNORMAL) eGFR (04/24/2025 8:08 PM CDT) [...] BLOOD ORDERABLES Final Result Performing Organization Address City/[facility] Co de Phone Number [facility] Department [place] [employer] [place] [address] * Lactate, whole blood (04/24/2025 8:08 PM CDT) Pathologist [facility] Lactate, bld 1.3 0.7 - 2.0 mmol/L Blood 04/24/2025 8:08 PM CDT 04/24/2025 8:18 PM CDT us Wang Almaraz MD LAB BLOOD ORDERABLES Final R esult Performing Organization Address City/[facility]/ZIP Co de Phone Number DULCE MARIA [facility] Department [place] [address] * (ABNORMAL) aPTT (04/24/2025 8:08 PM CDT) [facility] aPTT 62(H) 28 - 38 sec Comment: Interpretive Data Heparin therapeutic range: 66.0 - 100.0 seconds. Range based on correlation with therapeutic heparin activity range of 0.3 - 0.7 Units/mL. Current interpretive data was last revised on 2023. Blood 04/24/2025 8:08 PM CDT 04/24/2025 8:22 PM CDT Narrative [facility] - 04/24/2025 8:51 PM CDT STAT [...] drawn peripherally (not from CVC). Libia Suarez NURSE FIRST AID LAB BLOOD ORDERABLES Final Re sult [facility] Department [place] [address] * (ABNORMAL) CBC without differential (04/24/2025 8:08 PM CDT) [facility] WBC 8.38 3.80 - 9.90 K/cumm Hgb 12.8(L) 13.0 - 17.5 g/dL [facility] Hct 39.4 38.9 - 50.3 % [facility] Plt 206 150 - 400 K/cumm [facility] MPV 11.5 9.1 - 12.3 fL [facility] RBC 4.73 4.30 - 5.80 M/cumm [facility] MCV 83.3 81.3 - 96.4 fL [facility] MCH 27.1 27.1 - 33.3 pg [facility] MCHC 32.5 32.3 - 35.7 g/dL [facility] RDW CV 15.9(H) 11.1 - 14.9 % [facility] RDW SD 48.4(H) 35.7 - 48.1 fL [facility] NRBC abs 0.00 0.00 - 0.01 K/cumm [facility] Blood 04/24/2025 8:08 PM CDT 04/24/2025 8:21 PM CDT Libia Suarez NURSE FIRST AID LAB BLOOD ORDERABLES Final Re sult Performing Organization Address City/[facility] Co de Phone Number [facility] [employer] [place] [address] * Phosphorus (04/24/2025 8:08 PM CDT) Phosphorus, pl 3.4 2.3 - 4.5 mg/dL Blood 04/24/2025 8:08 PM CDT 04/24/2025 8:22 PM CDT Libia Suarez NURSE FIRST AID LAB BLOOD ORDERABLES Final Re sult Performing Organization Address [facility] Co de Phone Number [facility] [employer] [place] [address] * Magnesium (04/24/2025 8:08 PM CDT) Magnesium 2.0 1.4 - 2.5 mg/dL Blood 04/24/2025 8:08 PM CDT 04/24/2025 8:22 PM CDT Libia Suarez NURSE FIRST AID LAB BLOOD ORDERABLES Final Re sult [facility] [employer] [place] [address] * (ABNORMAL) Hepatic function panel (04/24/2025 8:08 PM CDT) Pathologist [facility] Bilirubin, total 0.7 0.1 - 1.2 mg/dL Bilirubin, direct 0.3 0.1 - 0.3 mg/dL [facility] Protein, pl 6.5 6.5 - 8.5 g/dL [facility] Albumin 4.1 3.5 - 5.0 g/dL [facility] Alk phos 275(H) 40 - 130 Units/L [facility] ALT 21 7 - 55 Units/L [facility] AST 24 10 - 50 Units/L [facility] Blood 04/24/2025 8:08 PM CDT 04/24/2025 8:22 PM CDT Libia Suarez NURSE FIRST AID LAB BLOOD ORDERABLES Final Re sult [facility] Department [place] [address] * (ABNORMAL) Basic metabolic panel (04/24/2025 8:08 PM CDT) Pathologist [facility] Sodium 136 135 - 145 mmol/L Potassium, pl 4.0 3.3 - 4.9 mmol/L [facility] Chloride 98 97 - 110 mmol/L [facility] CO2 28 22 - 32 mmol/L [facility] Anion gap 10 2 - 15 mmol/L [facility] BUN 30(H) 6 - 25 mg/dL [facility] Creatinine 1.63(H) 0.80 - 1.30 mg/dL [facility] Glucose 139 70 - 199 mg/dL [facility] Comment: Interpretive Data Fasting glucose >/= [...] 2022. Calcium 9.4 8.5 - 10.3 mg/dL [facility] Blood 04/24/2025 8:08 PM CDT 04/24/2025 8:22 PM CDT Dinorah Kahn NP LAB BLOOD ORDERABLES Final Result [facility] Department [place] [address] * XR Chest 1 View (04/24/2025 4:07 PM CDT) Anatomical Region Laterality Modality Body, Chest N/A Digital Radiogra phy 04/24/2025 4:47 PM CDT Impressions 04/24/2025 4:47 PM CDT The current study is compared with the prior radiograph dated 04/24/2025 at 1137 hours. [place]ne catheter is been retracted to an appropriate [...] prior radiograph dated 04/24/2025 at 1137 hours. [place] catheter is been retracted to an appropriate position in the pulmonary outflow tract. A right PICC catheter is in place with tip overlying the superior vena cava.. The heart is mildly enlarged. There is no pneumothorax.. There are small bilateral pleural effusions but no pulmonary edema. No mass or lymphadenopathy. Electronically signed by: Jessica Jackson M.D. Farida Flores NURSE FIRST AID IMG XR PROCEDURES Final Resu lt * XR Chest 1 View (04/24/2025 11:48 AM CDT) Anatomical Region Laterality Modality Body, Chest N/A Computed Radiogr aphy 04/24/2025 1:35 PM CDT Impressions 04/24/2025 1:42 PM CDT Comparison with 04/24/2025 10:23 AM. Unchanged position of left internal jugular [place] catheter with tip in a right upper [...] AM. Unchanged position of left internal jugular [place] catheter with tip in a right upper [...] signed by: Jessica Jackson M.D. Farida Flores NURSE FIRST AID IMG XR PROCEDURES Final Resu lt * XR Chest 1 View (04/24/2025 10:39 AM CDT) Anatomical Region Laterality Modality Body, Chest N/A Computed Radiogr aphy 04/24/2025 11:0 1 AM CDT Impressions 04/24/2025 1:33 PM CDT Comparison with 04/23/2025. Interval advancement of the left internal jugular [place] catheter with tip overlying a right upper [...] Interval advancement of the left internal jugular [place] catheter with tip overlying a right upper [...] signed by: Toño Rawls M.D. Dinorah Kahn NURSE FIRST AID IMG XR PROCEDURES Final Res ult * Oxyhemoglobin, pulmonary artery (04/24/2025 8:54 AM CDT) Oxyhemoglobin, PA 69.0 % Comment: Interpretive Data No reference range established. Current interpretive data was last revised 2020. Blood 04/24/2025 8:54 AM CDT 04/24/2025 9:11 AM CDT Wang Almaraz MD LAB BLOOD ORDERABLES Final R esult [facility] MAR[facility] Department [place] [address] * (ABNORMAL) Hemoglobin total, pulmonary artery (04/24/2025 8:54 AM CDT) Hemoglobin total, PA 12.7(L) 13.0 - 17.5 g/dL Comment:Collection date/time has been modified to: 08:54:00. Previous collection date/time: 09:07:00. Blood 04/24/2025 8:54 AM CDT 04/24/2025 9:11 AM CDT Wang Almaraz MD LAB BLOOD ORDERABLES Edited Result - Final Performing Organization Address [facility] de Phone Number DULCE MARIA [facility] [place] [address] * eGFR (04/24/2025 8:54 AM CDT) eGFR 63 >=60 mL/min/1. 73 [...] BLOOD ORDERABLES Final Result Performing Organization Address City/[facility]/ZIP Co de Phone Number [facility] [place] [address] * Lactate, whole blood (04/24/2025 8:54 AM CDT) Pathologist [facility] Lactate, bld 2.0 0.7 - 2.0 mmol/L Blood 04/24/2025 8:54 AM CDT 04/24/2025 9:11 AM CDT us Wang Almaraz MD LAB BLOOD ORDERABLES Final R esult Performing Organization Address [facility] Co de Phone Number [facility] Department [place] [address] * (ABNORMAL) Basic metabolic panel (04/24/2025 8:54 AM CDT) [facility] Sodium 136 135 - 145 mmol/L Potassium, pl 4.3 3.3 - 4.9 mmol/L [facility] Chloride 100 97 - 110 mmol/L [facility] CO2 28 22 - 32 mmol/L [facility] Anion gap 8 2 - 15 mmol/L [facility] BUN 27(H) 6 - 25 mg/dL [facility] Creatinine 1.29 0.80 - 1.30 mg/dL [facility] Glucose 172 70 - 199 mg/dL [facility] Comment: Interpretive Data Fasting glucose >/= [...] 2022. Calcium 9.2 8.5 - 10.3 mg/dL [facility] Blood 04/24/2025 8:54 AM CDT 04/24/2025 9:11 AM CDT us Dinorah Kahn NURSE FIRST AID LAB BLOOD ORDERABLES Final Result [facility] [employer] [place] [address] * Antibody identification (04/23/2025 10:44 PM CDT) Antibody ID 1 Anti-CD38 Comment:Panreactive -CD38 on reagent RBCs reacting with anti-CD38 therapy. DTT treatment removes cell surface CD38 and allows detection of common clinically significant antibodies except those against Dilma antigens. TRANSFUSION 2015;[id number] Blood 04/23/2025 10:4 4 PM CDT 04/23/2025 10:44 PM CDT us Libia Suarez NURSE FIRST AID LAB BLOOD BANK TEST ORDERABLE S Final Result Performing Organization Address City/[facility] Co de Phone Number [facility] [place] [address] * Oxyhemoglobin, pulmonary artery (04/23/2025 8:56 PM CDT) Oxyhemoglobin, PA 70.1 % Comment: Interpretive Data No reference range established. Current interpretive data was last revised 2020. Blood 04/23/2025 8:56 PM CDT 04/23/2025 9:05 PM CDT us Wang Almaraz MD LAB BLOOD ORDERABLES Final R esult Performing Organization Address City/[facility]/ZIP Co de Phone Number [facility] [place] [address] * Potassium, whole blood (04/23/2025 8:56 PM CDT) Potassium, bld 4.4 3.3 - 4.9 mmol/L Blood 04/23/2025 8:56 PM CDT 04/23/2025 9:05 PM CDT Dinorah Kahn NP LAB BLOOD ORDERABLES Final Result Performing Organization Address [facility] Co de Phone Number [facility] of [employer] [place] [address] * (ABNORMAL) eGFR (04/23/2025 8:56 PM CDT) Pathologist [facility] eGFR 53(L) >=60 mL/min/1. 73 m2 Comment: [...] Performing Organization Address [facility]/ZIP Co de Phone Number [facility] [place] [address] * Lactate, whole blood (04/23/2025 8:56 PM CDT) Pathologist [facility] Lactate, bld 1.0 0.7 - 2.0 mmol/L Blood 04/23/2025 8:56 PM CDT 04/23/2025 9:05 PM CDT Wang Almaraz MD LAB BLOOD ORDERABLES Final R esult Performing Organization Address [facility]/ZIP Co de Phone Number [facility] of [employer] [place] [address] * (ABNORMAL) aPTT (04/23/2025 8:56 PM CDT) Pathologist [facility] aPTT 66(H) 28 - 38 sec Comment: Interpretive Data Heparin therapeutic range: 66.0 - 100.0 seconds. Range based on correlation with therapeutic heparin activity range of 0.3 - 0.7 Units/mL. Current interpretive data was last revised on 2023. Blood 04/23/2025 8:56 PM CDT 04/23/2025 9:07 PM CDT Narrative [facility] - 04/23/2025 9:38 PM CDT [...] ORDERABLES Final Re sult Performing Organization Address [facility]/ZIP Co de Phone Number [facility] [place] [address] * (ABNORMAL) CBC without differential (04/23/2025 8:56 PM CDT) WBC 8.06 3.80 - 9.90 K/cumm Hgb 12.7(L) 13.0 - 17.5 g/dL [facility] Hct 39.8 38.9 - 50.3 % [facility] Plt 209 150 - 400 K/cumm [facility] MPV 11.3 9.1 - 12.3 fL [facility] RBC 4.72 4.30 - 5.80 M/cumm [facility] MCV 84.3 81.3 - 96.4 fL [facility] MCH 26.9(L) 27.1 - 33.3 pg [facility] MCHC 31.9(L) 32.3 - 35.7 g/dL [facility] RDW CV 16.0(H) 11.1 - 14.9 % [facility] RDW SD 49.1(H) 35.7 - 48.1 fL [facility] NRBC abs 0.00 0.00 - 0.01 K/cumm [facility] Blood 04/23/2025 8:56 PM CDT 04/23/2025 9:24 PM CDT Libia Suarez NP LAB BLOOD ORDERABLES Final Re sult [facility] [place] [address] * (ABNORMAL) Type and screen (04/23/2025 8:56 PM CDT) ABO Rh O Positive Poppy, indirect Positive(A) [facility] Blood 04/23/2025 8:56 PM CDT 04/23/2025 9:22 PM CDT Narrative [facility] - 04/23/2025 10:44 PM CDT Has the patient had Daratumumab or Isatuximab in the past 6 months?->Unknown Libia Suarez NP LAB BLOOD BANK TEST ORDERABLE S Final Result Performing Organization Address [facility] Co de Phone Number [facility] [employer] [place] [address] * Phosphorus (04/23/2025 8:56 PM CDT) Phosphorus, pl 4.1 2.3 - 4.5 mg/dL Blood 04/23/2025 8:56 PM CDT 04/23/2025 9:14 PM CDT Libia Suarez NP LAB BLOOD ORDERABLES Final Re sult Performing Organization Address [facility] Co de Phone Number [facility] [place] [address] * Magnesium (04/23/2025 8:56 PM CDT) Pathologist [facility] Magnesium 2.0 1.4 - 2.5 mg/dL Blood 04/23/2025 8:56 PM CDT 04/23/2025 9:14 PM CDT Libia Suarez NURSE [facility] LAB BLOOD ORDERABLES Final Re sult Performing Organization Address [facility] Co de Phone Number [facility] [place] [address] * (ABNORMAL) Hepatic function panel (04/23/2025 8:56 PM CDT) Bilirubin, total 0.8 0.1 - 1.2 mg/dL Bilirubin, direct 0.3 0.1 - 0.3 mg/dL [facility] Protein, pl 6.4(L) 6.5 - 8.5 g/dL [facility] Albumin 3.9 3.5 - 5.0 g/dL [facility] Alk phos 274(H) 40 - 130 Units/L [facility] ALT 23 7 - 55 Units/L [facility] AST 27 10 - 50 Units/L [facility] Blood 04/23/2025 8:56 PM CDT 04/23/2025 9:14 PM CDT Libia Suarez NURSE [facility] LAB BLOOD ORDERABLES Final Re sult [facility] [place] [address] * (ABNORMAL) Basic metabolic panel (04/23/2025 8:56 PM CDT) [facility] Sodium 136 135 - 145 mmol/L Potassium, pl 4.6 3.3 - 4.9 mmol/L [facility] Chloride 97 97 - 110 mmol/L [facility] CO2 28 22 - 32 mmol/L [facility] Anion gap 11 2 - 15 mmol/L [facility] BUN 32(H) 6 - 25 mg/dL [facility] Creatinine 1.49(H) 0.80 - 1.30 mg/dL [facility] Glucose 110 70 - 199 mg/dL [facility] Comment: Interpretive Data Fasting glucose >/= [...] 2022. Calcium 9.6 8.5 - 10.3 mg/dL [facility] Blood 04/23/2025 8:56 PM CDT 04/23/2025 9:14 PM CDT Dinorah Kahn NURSE FIRST A[facility] LAB BLOOD ORDERABLES Final Result Performing Organization Address City/[facility]/ZIP Co de Phone Number [facility] [place] [address] * Potassium, whole blood (04/23/2025 1:02 PM CDT) Potassium, bld 3.8 3.3 - 4.9 mmol/L Blood 04/23/2025 1:02 PM CDT 04/23/2025 1:15 PM CDT Dinorah Kahn NP LAB BLOOD ORDERABLES Final Result [facility] [place] [address] * XR Chest 1 View (04/23/2025 10:09 AM CDT) Anatomical Region Laterality Modality Body, Chest N/A Computed Radiogr aphy 04/23/2025 11:4 2 AM CDT Impressions 04/23/2025 2:23 PM CDT Comparison with 04/22/2025. Left internal jugular [place] catheter tip is advanced and overlies the [...] IMPRESSION: Comparison with 04/22/2025. Left internal jugular [place] catheter tip is advanced and overlies the [...] Dmitry Armas MD, PHD us Dinorah Kahn NUR[facility] IMG XR PROCEDURES Final Res ult * Oxyhemoglobin, pulmonary artery (04/23/2025 8:36 AM CDT) Pathologist [facility] Oxyhemoglobin, PA 68.3 % Comment: Interpretive Data No reference range established. Current interpretive data was last revised 2020. Blood 04/23/2025 8:36 AM CDT 04/23/2025 8:48 AM CDT us Wang Almaraz MD LAB BLOOD ORDERABLES Final R esult Performing Organization Address [facility] Co de Phone Number [facility] [place] [employer] [place] [address] * Hemoglobin total, pulmonary artery (04/23/2025 8:36 AM CDT) Pathologist [facility] Hemoglobin total, PA 13.2 13.0 - 17.5 g/dL Blood 04/23/2025 8:36 AM CDT 04/23/2025 8:49 AM CDT Wang Almaraz MD LAB BLOOD ORDERABLES Final R esult Performing Organization Address City/State/[facility] Co de Phone Number [facility] [place] [address] * eGFR (04/23/2025 8:36 AM CDT) Pathologist [facility] eGFR 69 >=60 mL/min/1. 73 m2 Comment: [...] Performing Organization Address [facility]/ZIP Co de Phone Number [facility] Department [place] [address] * (ABNORMAL) Lactate, whole blood (04/23/2025 8:36 AM CDT) Pathologist [facility] Lactate, bld 2.4(H) 0.7 - 2.0 mmol/L Blood 04/23/2025 8:36 AM CDT 04/23/2025 8:48 AM CDT Wang Almaraz MD LAB BLOOD ORDERABLES Final R esult Performing Organization Address City/[facility]/ZIP Co de Phone Number [facility] Department [place] [address] * (ABNORMAL) Basic metabolic panel (04/23/2025 8:36 AM CDT) Pathologist [facility] Sodium 137 135 - 145 mmol/L Potassium, pl 3.9 3.3 - 4.9 mmol/L [facility] Chloride 100 97 - 110 mmol/L [facility] CO2 27 22 - 32 mmol/L [facility] Anion gap 10 2 - 15 mmol/L [facility] BUN 27(H) 6 - 25 mg/dL [facility] Creatinine 1.20 0.80 - 1.30 mg/dL [facility] Glucose 229(H) 70 - 199 mg/dL [facility] Comment: Interpretive Data Fasting glucose >/= [...] 2022. Calcium 9.3 8.5 - 10.3 mg/dL [facility] Blood 04/23/2025 8:36 AM CDT 04/23/2025 8:51 AM CDT Dinorah Kahn NP LAB BLOOD ORDERABLES Final Result [facility] [place] [address] * (ABNORMAL) aPTT (04/23/2025 5:26 AM CDT) aPTT 62(H) 28 - 38 sec Comment: Interpretive Data Heparin therapeutic range: 66.0 - 100.0 seconds. Range based on correlation with therapeutic heparin activity range of 0.3 - 0.7 Units/mL. Current interpretive data was last revised on 2023. Blood 04/23/2025 5:26 AM CDT 04/23/2025 5:47 AM CDT Narrative [facility] - 04/23/2025 6:08 AM CDT STAT PTT [...] ORDERABLES Final Re sult Performing Organization Address [facility] Co de Phone Number [facility] [employer] [place] [address] * Oxyhemoglobin, pulmonary artery (04/22/2025 8:40 PM CDT) Pathologist [facility] Oxyhemoglobin, PA 66.8 % Comment: Interpretive Data No reference range established. Current interpretive data was last revised 2020. Blood 04/22/2025 8:40 PM CDT 04/22/2025 9:22 PM CDT Wang Almaraz MD LAB BLOOD ORDERABLES Final R esult Performing Organization Address [facility] [place] [address] * Hemoglobin total, pulmonary artery (04/22/2025 8:40 PM CDT) [facility] Hemoglobin total, PA 13.6 13.0 - 17.5 g/dL Blood 04/22/2025 8:40 PM CDT 04/22/2025 9:22 PM CDT Wang Almaraz MD LAB BLOOD ORDERABLES Final R esult Performing Organization Address [facility] Co de Phone Number [facility] [place] [address] * eGFR (04/22/2025 8:40 PM CDT) [facility] eGFR 67 >=60 mL/min/1. 73 m2 Comment: [...] BLOOD ORDERABLES Final Result Performing Organization Address City/[facility]/ZIP Co de Phone Number [facility] Department [place] [employer] [place] [address] * Lactate, whole blood (04/22/2025 8:40 PM CDT) [facility] Lactate, bld 1.0 0.7 - 2.0 mmol/L Blood 04/22/2025 8:40 PM CDT 04/22/2025 9:22 PM CDT us Wang Almaraz MD LAB BLOOD ORDERABLES Final R esult Performing Organization Address City/[facility]/ZIP Co de Phone Number [facility] Department [place] [address] * (ABNORMAL) CBC without differential (04/22/2025 8:40 PM CDT) [facility] WBC 7.99 3.80 - 9.90 K/cumm Hgb 13.4 13.0 - 17.5 g/dL [facility] Hct 40.5 38.9 - 50.3 % [facility] Plt 217 150 - 400 K/cumm [facility] MPV 11.6 9.1 - 12.3 fL [facility] RBC 4.89 4.30 - 5.80 M/cumm [facility] MCV 82.8 81.3 - 96.4 fL [facility] MCH 27.4 27.1 - 33.3 pg [facility] MCHC 33.1 32.3 - 35.7 g/dL [facility] RDW CV 16.1(H) 11.1 - 14.9 % [facility] RDW SD 48.5(H) 35.7 - 48.1 fL [facility] NRBC abs 0.00 0.00 - 0.01 K/cumm [facility] Blood 04/22/2025 8:40 PM CDT 04/22/2025 9:27 PM CDT Libia Suarez NURSE FIRST A[facility] LAB BLOOD ORDERABLES Final Re sult Performing Organization Address City/[facility]/ZIP Co de Phone Number [facility] [employer] [place] [address] * Phosphorus (04/22/2025 8:40 PM CDT) [facility] Phosphorus, pl 3.6 2.3 - 4.5 mg/dL Blood 04/22/2025 8:40 PM CDT 04/22/2025 9:26 PM CDT Libia Suarez NURSE FIRST A[facility] LAB BLOOD ORDERABLES Final Re sult Performing Organization Address City/[facility]/ZIP Co de Phone Number [facility] [employer] [place] [address] * Magnesium (04/22/2025 8:40 PM CDT) [facility] Magnesium 2.2 1.4 - 2.5 mg/dL Blood 04/22/2025 8:40 PM CDT 04/22/2025 9:26 PM CDT Libia Suarez NURSE FIRST A[facility] LAB BLOOD ORDERABLES Final Re sult Performing Organization Address [facility] Co de Phone Number [facility] [place] [address] * (ABNORMAL) Hepatic function panel (04/22/2025 8:40 PM CDT) [facility] Bilirubin, total 0.7 0.1 - 1.2 mg/dL Bilirubin, direct 0.2 0.1 - 0.3 mg/dL [facility] Protein, pl 6.3(L) 6.5 - 8.5 g/dL [facility] Albumin 3.9 3.5 - 5.0 g/dL [facility] Alk phos 255(H) 40 - 130 Units/L [facility] ALT 20 7 - 55 Units/L [facility] AST 33 10 - 50 Units/L [facility] Blood 04/22/2025 8:40 PM CDT 04/22/2025 9:26 PM CDT Libia Suarez NURSE FIRST AID LAB BLOOD ORDERABLES Final Re sult Performing Organization Address [facility] Co de Phone Number [facility] [place] [address] * (ABNORMAL) Basic metabolic panel (04/22/2025 8:40 PM CDT) [facility] Sodium 136 135 - 145 mmol/L Potassium, pl 4.4 3.3 - 4.9 mmol/L [facility] Chloride 97 97 - 110 mmol/L [facility] CO2 26 22 - 32 mmol/L [facility] Anion gap 13 2 - 15 mmol/L [facility] BUN 32(H) 6 - 25 mg/dL [facility] Creatinine 1.23 0.80 - 1.30 mg/dL [facility] Glucose 105 70 - 199 mg/dL [facility] Comment: Interpretive Data Fasting glucose >/= [...] 2022. Calcium 9.2 8.5 - 10.3 mg/dL [facility] Blood 04/22/2025 8:40 PM CDT 04/22/2025 9:26 PM CDT Dinorah Kahn NP LAB BLOOD ORDERABLES Final Result [facility] Department [place] [address] * (ABNORMAL) Potassium, whole blood (04/22/2025 2:15 PM CDT) [facility] Potassium, bld 5.1(H) 3.3 - 4.9 mmol/L Blood 04/22/2025 2:15 PM CDT 04/22/2025 2:38 PM CDT Dinorah Kahn NP LAB BLOOD ORDERABLES Final Result [facility] [place] [address] * XR Chest 1 View (04/22/2025 8:43 AM CDT) Anatomical Region Laterality Modality Body, Chest N/A Computed Radiogr aphy 04/22/2025 10:5 4 AM CDT Impressions 04/22/2025 11:12 AM CDT The current study is compared with the prior radiograph dated 04/21/2025. A [place]-Jayne catheter is in place, tip overlies the [...] with the prior radiograph dated 04/21/2025. A [place] catheter is in place, tip overlies the [...] signed by: Juanito Brandt M.D. Dinorah Kahn NURSE [facility] IMG XR PROCEDURES Final Res ult * Oxyhemoglobin, pulmonary artery (04/22/2025 7:35 AM CDT) Oxyhemoglobin, PA 68.3 % Comment: Interpretive Data No reference range established. Current interpretive data was last revised 2020. Blood 04/22/2025 7:35 AM CDT 04/22/2025 7:46 AM CDT Wang Almaraz MD LAB BLOOD ORDERABLES Final R esult Performing Organization Address City/[facility]/ZIP Co de Phone [facility] [place] [address] * Hemoglobin total, pulmonary artery (04/22/2025 7:35 AM CDT) Hemoglobin total, PA 13.0 13.0 - 17.5 g/dL Blood 04/22/2025 7:35 AM CDT 04/22/2025 7:46 AM CDT Wang Almaraz MD LAB BLOOD ORDERABLES Final R esult Performing Organization Address [facility] Co de Phone Number [facility] [place] [address] * Potassium, whole blood (04/22/2025 7:35 AM CDT) Pathologist [facility] Potassium, bld 3.9 3.3 - 4.9 mmol/L Blood 04/22/2025 7:35 AM CDT 04/22/2025 7:46 AM CDT us Dinorah Kahn NP LAB BLOOD ORDERABLES Final Result Performing Organization Address City/[facility] Co de Phone Number [facility] Department [place] [address] * eGFR (04/22/2025 7:35 AM CDT) eGFR [...] Kahn NP LAB BLOOD ORDERABLES Final Result [facility] Department [place] [address] * Lactate, whole blood (04/22/2025 7:35 AM CDT) Pathologist [facility] Lactate, bld 0.7 0.7 - 2.0 mmol/L Blood 04/22/2025 7:35 AM CDT 04/22/2025 7:46 AM CDT us Wang Almaraz MD LAB BLOOD ORDERABLES Final R esult Performing Organization Address City/[facility]/ZIP Co de Phone Number [facility] Department [place] [address] * (ABNORMAL) Basic metabolic panel (04/22/2025 7:35 AM CDT) Sodium 137 135 - 145 mmol/L Potassium, pl 4.1 3.3 - 4.9 mmol/L [facility] Chloride 100 97 - 110 mmol/L [facility] CO2 27 22 - 32 mmol/L [facility] Anion gap 10 2 - 15 mmol/L [facility] BUN 30(H) 6 - 25 mg/dL [facility] Creatinine 1.29 0.80 - 1.30 mg/dL [facility] Glucose 103 70 - 199 mg/dL [facility] Comment: Interpretive Data Fasting glucose >/= [...] 2022. Calcium 9.3 8.5 - 10.3 mg/dL [facility] Blood 04/22/2025 7:35 AM CDT 04/22/2025 8:29 AM CDT us Dinorah Kahn NP LAB BLOOD ORDERABLES Final Result Performing Organization Address [facility] Co de Phone Number [facility] [place] [employer] [place] [address] * Oxyhemoglobin, pulmonary artery (04/21/2025 10:13 PM CDT) Oxyhemoglobin, PA 60.6 % Comment: Interpretive Data No reference range established. Current interpretive data was last revised 2020. Blood 04/21/2025 10:1 3 PM CDT 04/21/2025 10:44 PM CDT us Wang Almaraz MD LAB BLOOD ORDERABLES Final R esult Performing Organization Address City/[facility]/ZIP Co de Phone Number [facility] [employer] [place] [address] * Hemoglobin total, pulmonary artery (04/21/2025 10:13 PM CDT) Hemoglobin total, PA 13.7 13.0 - 17.5 g/dL Blood 04/21/2025 10:1 3 PM CDT 04/21/2025 10:44 PM CDT us Wang Almaraz MD LAB BLOOD ORDERABLES Final R esult [facility] [place] [employer] [place] [address] * (ABNORMAL) eGFR (04/21/2025 10:13 PM CDT) [...] ORDERABLES Final Result [facility] [place] [address] * Lactate, whole blood (04/21/2025 10:13 PM CDT) Lactate, bld 1.0 0.7 - 2.0 mmol/L Blood 04/21/2025 10:1 3 PM CDT 04/21/2025 10:44 PM CDT Wang Almaraz MD LAB BLOOD ORDERABLES Final R esult Performing Organization Address City/[facility]/ZIP Co de Phone Number [facility] [place] [address] * (ABNORMAL) aPTT (04/21/2025 10:13 PM CDT) Pathologist [facility] aPTT 60(H) 28 - 38 sec Comment: Interpretive Data Heparin therapeutic range: 66.0 - 100.0 seconds. Range based on correlation with therapeutic heparin activity range of 0.3 - 0.7 Units/mL. Current interpretive data was last revised on 2023. Blood 04/21/2025 10:1 3 PM CDT 04/21/2025 10:55 PM CDT Narrative [facility] - 04/21/2025 11:21 PM CDT STAT PTT [...] drawn peripherally (not from CVC). Libia Suarez NURSE FIRST [facility] LAB BLOOD ORDERABLES Final Re sult [facility] [place] [address] * (ABNORMAL) CBC without differential (04/21/2025 10:13 PM CDT) [facility] WBC 8.41 3.80 - 9.90 K/cumm Hgb 12.8(L) 13.0 - 17.5 g/dL [facility] Hct 39.7 38.9 - 50.3 % [facility] Plt 207 150 - 400 K/cumm [facility] MPV 11.9 9.1 - 12.3 fL [facility] RBC 4.73 4.30 - 5.80 M/cumm [facility] MCV 83.9 81.3 - 96.4 fL [facility] MCH 27.1 27.1 - 33.3 pg [facility] MCHC 32.2(L) 32.3 - 35.7 g/dL [facility] RDW CV 15.9(H) 11.1 - 14.9 % [facility] RDW SD 49.0(H) 35.7 - 48.1 fL [facility] NRBC abs 0.00 0.00 - 0.01 K/cumm [facility] Blood 04/21/2025 10:1 3 PM CDT 04/21/2025 10:55 PM CDT Libia Suarez NURSE FIRST A[facility] LAB BLOOD ORDERABLES Final Re sult Performing Organization Address City/[facility]/ZIP Co de Phone Number [facility] [place] [address] * Phosphorus (04/21/2025 10:13 PM CDT) Phosphorus, pl 3.9 2.3 - 4.5 mg/dL Blood 04/21/2025 10:1 3 PM CDT 04/21/2025 10:54 PM CDT Libia Suarez NURSE FIRST AID LAB BLOOD ORDERABLES Final Re sult [facility] [place] [address] * Magnesium (04/21/2025 10:13 PM CDT) Magnesium 2.5 1.4 - 2.5 mg/dL Blood 04/21/2025 10:1 3 PM CDT 04/21/2025 10:54 PM CDT Libia Suarez NURSE FIRST A[facility] LAB BLOOD ORDERABLES Final Re sult Performing Organization Address [facility] de Phone Number [facility] [place] [address] * (ABNORMAL) Hepatic function panel (04/21/2025 10:13 PM CDT) Bilirubin, total 0.6 0.1 - 1.2 mg/dL Bilirubin, direct 0.3 0.1 - 0.3 mg/dL [facility] Protein, pl 6.2(L) 6.5 - 8.5 g/dL [facility] Albumin 3.9 3.5 - 5.0 g/dL [facility] Alk phos 245(H) 40 - 130 Units/L [facility] [facility] ALT 20 7 - 55 Units/L [facility] AST 25 10 - 50 Units/L [facility] Blood 04/21/2025 10:1 3 PM CDT 04/21/2025 10:54 PM CDT Libia Suarez NURSE FIRST AID LAB BLOOD ORDERABLES Final Re sult Performing Organization Address [facility] de Phone Number [facility] [place] [address] * (ABNORMAL) Basic metabolic panel (04/21/2025 10:13 PM CDT) Sodium 135 135 - 145 mmol/L Potassium, pl 4.5 3.3 - 4.9 mmol/L [facility] Chloride 98 97 - 110 mmol/L [facility] CO2 27 22 - 32 mmol/L [facility] Anion gap 10 2 - 15 mmol/L [facility] BUN 35(H) 6 - 25 mg/dL [facility] Creatinine 1.51(H) 0.80 - 1.30 mg/dL [facility] Glucose 131 70 - 199 mg/dL [facility] Comment: Interpretive Data Fasting glucose >/= [...] 2022. Calcium 9.4 8.5 - 10.3 mg/dL [facility] Blood 04/21/2025 10:1 3 PM CDT 04/21/2025 10:54 PM CDT Dinorah Kahn NP LAB BLOOD ORDERABLES Final Result Performing Organization Address City/[facility] Co de Phone Number [facility] Department [place] [address] * Potassium, whole blood (04/21/2025 2:54 PM CDT) [facility] Potassium, bld 4.3 3.3 - 4.9 mmol/L Blood 04/21/2025 2:54 PM CDT 04/21/2025 3:01 PM CDT Dinorah Kahn NP LAB BLOOD ORDERABLES Final Result [facility] [place] [address] * XR Chest 1 View (04/21/2025 10:55 AM CDT) Anatomical Region Laterality Modality Body, Chest N/A Digital Radiogra phy 04/21/2025 1:00 PM CDT Impressions 04/21/2025 1:00 PM CDT Comparison 04/20/2025 8:55 AM. [place]-Jayne catheter tip projects over the right interlobar [...] chest radiograph IMPRESSION: Comparison 04/20/2025 8:55 AM. [place]-Jayne catheter tip projects over the right interlobar pulmonary artery, unchanged. Small right basilar pleural effusion and mild right base atelectasis again noted. No focal consolidation or pulmonary edema seen. No pneumothorax seen. Electronically signed by: Miguel Angel Ng M.D. us Dinorah Kahn NURSE FIRST AID IMG XR PROCEDURES Final Res ult * Oxyhemoglobin, pulmonary artery (04/21/2025 8:41 AM CDT) Oxyhemoglobin, PA 69.1 % Comment: Interpretive Data No reference range established. Current interpretive data was last revised 2020. Blood 04/21/2025 8:41 AM CDT 04/21/2025 8:51 AM CDT Wang Almaraz MD LAB BLOOD ORDERABLES Final R esult [facility] [place] [address] * Hemoglobin total, pulmonary artery (04/21/2025 8:41 AM CDT) Hemoglobin total, PA 14.0 13.0 - 17.5 g/dL Blood 04/21/2025 8:41 AM CDT 04/21/2025 8:51 AM CDT us Wang Almaraz MD LAB BLOOD ORDERABLES Final R esult Performing Organization Address City/[facility]/ZIP Co de Phone Number [facility] [employer] [place] [address] * Oxyhemoglobin, pulmonary artery (04/21/2025 8:39 AM CDT) Oxyhemoglobin, PA 70.5 % Comment: Interpretive Data No reference range established. Current interpretive data was last revised 2020. Blood 04/21/2025 8:39 AM CDT 04/21/2025 8:51 AM CDT Wang Almaraz MD LAB BLOOD ORDERABLES Final R esult Performing Organization Address [facility] Co de Phone Number [facility] [place] [address] * eGFR (04/21/2025 8:39 AM CDT) eGFR [...] 04/21/2025 9:00 AM CDT us Dinorah Kahn NP LAB BLOOD ORDERABLES Final Result [facility] Department [place] [address] * Lactate, whole blood (04/21/2025 8:39 AM CDT) Lactate, bld 1.5 0.7 - 2.0 mmol/L Blood 04/21/2025 8:39 AM CDT 04/21/2025 8:51 AM CDT Wang Almaraz MD LAB BLOOD ORDERABLES Final R esult Performing Organization Address [facility] Co de Phone Number [facility] Department [place] [address] * (ABNORMAL) Basic metabolic panel (04/21/2025 8:39 AM CDT) Pathologist [facility] Sodium 137 135 - 145 mmol/L Potassium, pl 4.8 3.3 - 4.9 mmol/L [facility] Chloride 99 97 - 110 mmol/L [facility] CO2 27 22 - 32 mmol/L [facility] Anion gap 11 2 - 15 mmol/L [facility] BUN 31(H) 6 - 25 mg/dL [facility] Creatinine 1.27 0.80 - 1.30 mg/dL [facility] Glucose 179 70 - 199 mg/dL [facility] Comment: Interpretive Data Fasting glucose >/= [...] Calcium 9.9 8.5 - 10.3 mg/dL [facility] Blood 04/21/2025 8:39 AM CDT 04/21/2025 9:00 AM CDT Dinorah Kahn NP LAB BLOOD ORDERABLES Final Result Performing Organization Address [facility] Co de Phone Number [facility] [employer] [place] [address] * Potassium, whole blood (04/21/2025 4:39 AM CDT) Pathologist [facility] Potassium, bld 3.9 3.3 - 4.9 mmol/L Blood 04/21/2025 4:39 AM CDT 04/21/2025 4:51 AM CDT Dinorah Kahn NP LAB BLOOD ORDERABLES Final Result Performing Organization Address [facility] [place] [address] * Antibody identification (04/20/2025 10:54 PM CDT) Pathologist [facility] Antibody ID 1 Anti-CD38 Comment:Panreactive -CD38 on reagent RBCs reacting with anti-CD38 therapy. DTT treatment removes cell surface CD38 and allows detection of common clinically significant antibodies except those against Dilma antigens. TRANSFUSION 2015;[id number] Blood 04/20/2025 10:5 4 PM CDT 04/20/2025 10:54 PM CDT Libia Suarez NURSE FIRST AID LAB BLOOD BANK TEST ORDERABLE S Final Result Performing Organization Address [facility] [place] [address] * Oxyhemoglobin, pulmonary artery (04/20/2025 9:19 PM CDT) Pathologist [facility] Oxyhemoglobin, PA 66.7 % Comment: Interpretive Data No reference range established. Current interpretive data was last revised 2020. Blood 04/20/2025 9:19 PM CDT 04/20/2025 9:28 PM CDT us Wang Almaraz MD LAB BLOOD ORDERABLES Final R esult Performing Organization Address City/[facility]/ZIP Co de Phone Number [facility] Department [place] [address] * Hemoglobin total, pulmonary artery (04/20/2025 9:19 PM CDT) Hemoglobin total, PA 14.0 13.0 - 17.5 g/dL Blood 04/20/2025 9:19 PM CDT 04/20/2025 9:28 PM CDT Wang Almaraz MD LAB BLOOD ORDERABLES Final R esult Performing Organization Address City/[facility] Co de Phone Number [facility] Department [place] [address] * (ABNORMAL) eGFR (04/20/2025 9:19 PM CDT) [...] Performing Organization Address [facility] Co de Phone Number [facility] [place] [address] * Lactate, whole blood (04/20/2025 9:19 PM CDT) Lactate, bld 0.8 0.7 - 2.0 mmol/L Blood 04/20/2025 9:19 PM CDT 04/20/2025 9:28 PM CDT Wang Almaraz MD LAB BLOOD ORDERABLES Final R esult Performing Organization Address [facility] Co de Phone Number [facility] [place] [address] * (ABNORMAL) aPTT (04/20/2025 9:19 PM CDT) aPTT 62(H) 28 - 38 sec Comment: Interpretive Data Heparin therapeutic range: 66.0 - 100.0 seconds. Range based on correlation with therapeutic heparin activity range of 0.3 - 0.7 Units/mL. Current interpretive data was last revised on 2023. Blood 04/20/2025 9:19 PM CDT 04/20/2025 9:35 PM CDT Narrative [facility] - 04/20/2025 9:44 PM CDT STAT [...] ORDERABLES Final Re sult Performing Organization Address [facility] Co de Phone Number [facility] [place] [address] * (ABNORMAL) CBC without differential (04/20/2025 9:19 PM CDT) [facility] WBC 8.03 3.80 - 9.90 K/cumm Hgb 13.2 13.0 - 17.5 g/dL [facility] Hct 41.3 38.9 - 50.3 % [facility] Plt 197 150 - 400 K/cumm [facility] MPV 11.1 9.1 - 12.3 fL [facility] RBC 4.94 4.30 - 5.80 M/cumm [facility] MCV 83.6 81.3 - 96.4 fL [facility] MCH 26.7(L) 27.1 - 33.3 pg [facility] MCHC 32.0(L) 32.3 - 35.7 g/dL [facility] RDW CV 16.1(H) 11.1 - 14.9 % [facility] RDW SD 48.8(H) 35.7 - 48.1 fL [facility] NRBC abs 0.00 0.00 - 0.01 K/cumm [facility] Blood 04/20/2025 9:19 PM CDT 04/20/2025 9:31 PM CDT Libia Suarez NP LAB BLOOD ORDERABLES Final Re sult Performing Organization Address [facility]/ZIP Co de Phone Number [facility] [employer] [place] [address] * (ABNORMAL) Type and screen (04/20/2025 9:19 PM CDT) ABO Rh O Positive Poppy, indirect Positive(A) [facility] Blood 04/20/2025 9:19 PM CDT 04/20/2025 9:32 PM CDT Narrative [facility] - 04/20/2025 10:54 PM CDT Has the patient had Daratumumab or Isatuximab in the past 6 months?->Unknown Libia Suarez NP LAB BLOOD BANK TEST ORDERABLE S Final Result [facility] [place] [address] * Phosphorus (04/20/2025 9:19 PM CDT) Pathologist [facility] Phosphorus, pl 4.4 2.3 - 4.5 mg/dL Blood 04/20/2025 9:19 PM CDT 04/20/2025 9:31 PM CDT Libia Suarez NP LAB BLOOD ORDERABLES Final Re sult Performing Organization Address City/[facility]/ZIP Co de Phone Number [facility] Department [place] [address] * Magnesium (04/20/2025 9:19 PM CDT) Pathologist [facility] Magnesium 2.0 1.4 - 2.5 mg/dL Blood 04/20/2025 9:19 PM CDT 04/20/2025 9:31 PM CDT Libia Suarez NURSE FIRST AID LAB BLOOD ORDERABLES Final Re sult Performing Organization Address City/[facility]/ZIP Co de Phone Number [facility] [place] [address] * (ABNORMAL) Hepatic function panel (04/20/2025 9:19 PM CDT) Pathologist [facility] Bilirubin, total 0.7 0.1 - 1.2 mg/dL Bilirubin, direct 0.3 0.1 - 0.3 mg/dL [facility] Protein, pl 6.7 6.5 - 8.5 g/dL [facility] Albumin 4.1 3.5 - 5.0 g/dL [facility] Alk phos 254(H) 40 - 130 Units/L [facility] ALT 21 7 - 55 Units/L [facility] AST 26 10 - 50 Units/L [facility] Blood 04/20/2025 9:19 PM CDT 04/20/2025 9:31 PM CDT Libia Suarez NURSE FIRST AID LAB BLOOD ORDERABLES Final Re sult [facility] Department [place] [address] * (ABNORMAL) Basic metabolic panel (04/20/2025 9:19 PM CDT) Pathologist [facility] Sodium 137 135 - 145 mmol/L Potassium, pl 4.3 3.3 - 4.9 mmol/L [facility] Chloride 100 97 - 110 mmol/L [facility] CO2 28 22 - 32 mmol/L [facility] Anion gap 9 2 - 15 mmol/L [facility] BUN 34(H) 6 - 25 mg/dL [facility] Creatinine 1.47(H) 0.80 - 1.30 mg/dL [facility] Glucose 119 70 - 199 mg/dL [facility] Comment: Interpretive Data Fasting glucose >/= [...] 2022. Calcium 9.4 8.5 - 10.3 mg/dL [facility] Blood 04/20/2025 9:19 PM CDT 04/20/2025 9:31 PM CDT us Dinorah Kahn NP LAB BLOOD ORDERABLES Final Result Performing Organization Address City/[facility] Co de Phone Number [facility] [employer] [place] [address] * Potassium, whole blood (04/20/2025 4:11 PM CDT) Potassium, bld 4.1 3.3 - 4.9 mmol/L Blood 04/20/2025 4:11 PM CDT 04/20/2025 4:21 PM CDT us Dinorah Kahn NP LAB BLOOD ORDERABLES Final Result Performing Organization Address [facility] de Phone Number [facility] [employer] [place] [address] * Hemoglobin total, pulmonary artery (04/20/2025 9:47 AM CDT) Hemoglobin total, PA 13.1 13.0 - 17.5 g/dL Blood 04/20/2025 9:47 AM CDT 04/20/2025 10:00 AM CDT us Wang Almaraz MD LAB BLOOD ORDERABLES Final R esult Performing Organization Address [facility] de Phone Number [facility] [employer] [place] [address] * Oxyhemoglobin, pulmonary artery (04/20/2025 9:46 AM CDT) Oxyhemoglobin, PA 70.6 % Comment: Interpretive Data No reference range established. Current interpretive data was last revised 2020. Blood 04/20/2025 9:46 AM CDT 04/20/2025 10:00 AM CDT us Wang Almaraz MD LAB BLOOD ORDERABLES Final R esult Performing Organization Address [facility] Co de Phone Number DULCE MARIA [facility] [employer] [place] [address] * eGFR (04/20/2025 9:46 AM CDT) eGFR [...] Performing Organization Address [facility] Co de Phone Number DULCE MARIA [facility] Department [place] [employer] [place] [address] * Lactate, whole blood (04/20/2025 9:46 AM CDT) Lactate, bld 1.5 0.7 - 2.0 mmol/L Blood 04/20/2025 9:46 AM CDT 04/20/2025 10:00 AM CDT us Wang Almaraz MD LAB BLOOD ORDERABLES Final R esult [facility] Department [place] [address] * (ABNORMAL) Basic metabolic panel (04/20/2025 9:46 AM CDT) [facility] Sodium 137 135 - 145 mmol/L Potassium, pl 4.2 3.3 - 4.9 mmol/L [facility] Chloride 99 97 - 110 mmol/L [facility] CO2 26 22 - 32 mmol/L [facility] Anion gap 12 2 - 15 mmol/L [facility] BUN 29(H) 6 - 25 mg/dL [facility] Creatinine 1.28 0.80 - 1.30 mg/dL [facility] Glucose 166 70 - 199 mg/dL [facility] Comment: Interpretive Data Fasting glucose >/= [...] 2022. Calcium 9.5 8.5 - 10.3 mg/dL [facility] Blood 04/20/2025 9:46 AM CDT 04/20/2025 10:03 AM CDT us Dinorah Kahn NP LAB BLOOD ORDERABLES Final Result Performing Organization Address [facility]/ZIP Co de Phone Number [facility] Department [place] [employer] [place] [address] * XR Chest 1 View (04/20/2025 9:02 AM CDT) Anatomical Region Laterality Modality Body, Chest N/A Computed Radiogr aphy 04/20/2025 10:4 8 PM CDT Impressions 04/20/2025 10:48 PM CDT A right peripherally inserted central venous catheter terminates at the superior cavoatrial junction. A left internal jugular [place]-Jayne catheter terminates at the right interlobar pulmonary [...] superior cavoatrial junction. A left internal jugular [place]-Jayne catheter terminates at the right interlobar pulmonary artery. Small bilateral pleural effusions are present. There is minimal bibasilar atelectasis with some superimposed mild reticulonodular opacities which may represent a component of aspiration. No pneumothorax is identified. The cardiomediastinal silhouette is unchanged. Electronically signed by: Raman Saavedra M.D. Dinorah Kahn NURSE FIRST AID IMG XR PROCEDURES Final Res ult * Oxyhemoglobin, pulmonary artery (04/19/2025 9:41 PM CDT) Oxyhemoglobin, PA 66.0 % Comment: Interpretive Data No reference range established. Current interpretive data was last revised 2020. Blood 04/19/2025 9:41 PM CDT 04/19/2025 9:54 PM CDT Wang Almaraz MD LAB BLOOD ORDERABLES Final R esult [facility]DASt[facility] [employer] [place] [address] * Hemoglobin total, pulmonary artery (04/19/2025 9:41 PM CDT) Hemoglobin total, PA 14.2 13.0 - 17.5 g/dL Blood 04/19/2025 9:41 PM CDT 04/19/2025 9:54 PM CDT Wang Almaraz MD LAB BLOOD ORDERABLES Final R esult Performing Organization Address [facility] Co de Phone Number DULCE MARIA [facility] [place] [address] * eGFR (04/19/2025 9:41 PM CDT) eGFR [...] 9:41 PM CDT 04/19/2025 10:08 PM CDT Dinorah Kahn NP LAB BLOOD ORDERABLES Final Result Performing Organization Address City/[facility]/ZIP Co de Phone Number [facility] [place] [address] * (ABNORMAL) Lactate, whole blood (04/19/2025 9:41 PM CDT) Lactate, bld 0.6(L) 0.7 - 2.0 mmol/L Blood 04/19/2025 9:41 PM CDT 04/19/2025 9:54 PM CDT Wang Almaraz MD LAB BLOOD ORDERABLES Final R esult Performing Organization Address [facility] de Phone Number [facility] [place] [address] * (ABNORMAL) aPTT (04/19/2025 9:41 PM CDT) aPTT 58(H) 28 - 38 sec Comment: Interpretive Data Heparin therapeutic range: 66.0 - 100.0 seconds. Range based on correlation with therapeutic heparin activity range of 0.3 - 0.7 Units/mL. Current interpretive data was last revised on 2023. Blood 04/19/2025 9:41 PM CDT 04/19/2025 10:02 PM CDT Narrative [facility] - 04/19/2025 10:12 PM CDT STAT [...] drawn peripherally (not from CVC). Libia Suarez NURSE FIRST AID LAB BLOOD ORDERABLES Final Re sult Performing Organization Address [facility]/ZIP Co de Phone Number DULCE MARIA [facility] Department [place] [address] * (ABNORMAL) CBC without differential (04/19/2025 9:41 PM CDT) [facility] WBC 7.79 3.80 - 9.90 K/cumm Hgb 13.3 13.0 - 17.5 g/dL [facility] Hct 41.2 38.9 - 50.3 % [facility] Plt 205 150 - 400 K/cumm [facility] MPV 11.6 9.1 - 12.3 fL [facility] RBC 4.93 4.30 - 5.80 M/cumm [facility] MCV 83.6 81.3 - 96.4 fL [facility] MCH 27.0(L) 27.1 - 33.3 pg [facility] MCHC 32.3 32.3 - 35.7 g/dL [facility] RDW CV 16.1(H) 11.1 - 14.9 % [facility] RDW SD 49.0(H) 35.7 - 48.1 fL [facility] NRBC abs 0.00 0.00 - 0.01 K/cumm [facility] Blood 04/19/2025 9:41 PM CDT 04/19/2025 9:57 PM CDT Libia Suarez NP LAB BLOOD ORDERABLES Final Re sult Performing Organization Address [facility]/ZIP Co de Phone Number [facility] Department [place] [address] * (ABNORMAL) Phosphorus (04/19/2025 9:41 PM CDT) [facility] Phosphorus, pl 4.8(H) 2.3 - 4.5 mg/dL Blood 04/19/2025 9:41 PM CDT 04/19/2025 9:56 PM CDT Libia Suarez NURSE FIRST AID LAB BLOOD ORDERABLES Final Re sult Performing Organization Address City/[facility] Co de Phone Number [facility] [employer] [place] [address] * Magnesium (04/19/2025 9:41 PM CDT) Magnesium 2.0 1.4 - 2.5 mg/dL Blood 04/19/2025 9:41 PM CDT 04/19/2025 9:56 PM CDT Libia Suarez NURSE FIRST AID LAB BLOOD ORDERABLES Final Re sult Performing Organization Address [facility] Co de Phone Number [facility] [employer] [place] [address] * (ABNORMAL) Hepatic function panel (04/19/2025 9:41 PM CDT) Bilirubin, total 0.7 0.1 - 1.2 mg/dL Bilirubin, direct 0.3 0.1 - 0.3 mg/dL [facility] Protein, pl 6.6 6.5 - 8.5 g/dL [facility] Albumin 4.0 3.5 - 5.0 g/dL [facility] Alk phos 245(H) 40 - 130 Units/L [facility] ALT 22 7 - 55 Units/L [facility] AST 25 10 - 50 Units/L [facility] Blood 04/19/2025 9:41 PM CDT 04/19/2025 9:56 PM CDT Libia Suarez NURSE FIRST AID LAB BLOOD ORDERABLES Final Re sult Performing Organization Address [facility] Co de Phone Number [facility] [employer] [place] [address] * (ABNORMAL) Basic metabolic panel (04/19/2025 9:41 PM CDT) Sodium 135 135 - 145 mmol/L Potassium, pl 4.4 3.3 - 4.9 mmol/L [facility] Chloride 99 97 - 110 mmol/L [facility] CO2 26 22 - 32 mmol/L [facility] Anion gap 10 2 - 15 mmol/L [facility] BUN 32(H) 6 - 25 mg/dL [facility] Creatinine 1.34(H) 0.80 - 1.30 mg/dL [facility] Glucose 124 70 - 199 mg/dL [facility] Comment: Interpretive Data Fasting glucose >/= [...] 2022. Calcium 9.8 8.5 - 10.3 mg/dL [facility] Blood 04/19/2025 9:41 PM CDT 04/19/2025 9:56 PM CDT Dinorah Kahn NP LAB BLOOD ORDERABLES Final Result [facility] [place] [address] * Infection Prevention Shady auris PCR, surveillance Axilla/Groin (04/19/2025 2:06 PM CDT) Pathologist [facility] Shady auris DNA Not Detected Not Detected [facility] Comment: Interpretive Data Testing performed by [facility] using the Lucas carlos [id number] Shady auris assay. This assay detects DNA from Shady auris using Real-Time PCR. This assay is laboratory developed and is not cleared by the [place] Food and Drug Administration. The performance characteristics have been verified by the [facility]. Axilla/Groin 04/19/2025 2:06 PM CDT 04/19/2025 2:56 PM CDT Narrative DULCE MARIA [facility] - 04/20/2025 2:56 AM CDT Order placed by [facility] due to ring surveillance. us Instant Order Generic Provider LAB MICROBIOLOGY - GENERAL ORDERABLES Final Result Performing Organization Address City/[facility] [place] [address] [facility] * Oxyhemoglobin, pulmonary artery (04/19/2025 9:05 AM CDT) Oxyhemoglobin, PA 69.3 % Comment: Interpretive Data No reference range established. Current interpretive data was last revised 2020. Blood 04/19/2025 9:05 AM CDT 04/19/2025 9:50 AM CDT Wang Almaraz MD LAB BLOOD ORDERABLES Final R esult Performing Organization Address [facility] Co de Phone Number [facility] [employer] [place] [address] * Hemoglobin total, pulmonary artery (04/19/2025 9:05 AM CDT) Hemoglobin total, PA 13.1 13.0 - 17.5 g/dL Blood 04/19/2025 9:05 AM CDT 04/19/2025 10:08 AM CDT us Wang Almaraz MD LAB BLOOD ORDERABLES Final R esult Performing Organization Address City/[facility] Co de Phone Number [facility] [place] [address] * eGFR (04/19/2025 9:05 AM CDT) eGFR [...] BLOOD ORDERABLES Final Result Performing Organization Address City/[facility]/ZIP Co de Phone Number [facility] Department [place] [employer] [place] [address] * Lactate, whole blood (04/19/2025 9:05 AM CDT) Lactate, bld 1.7 0.7 - 2.0 mmol/L Blood 04/19/2025 9:05 AM CDT 04/19/2025 9:58 AM CDT us Wang Almaraz MD LAB BLOOD ORDERABLES Final [facility]ult [facility] [place] [address] * Basic metabolic panel (04/19/2025 9:05 AM CDT) Sodium 136 135 - 145 mmol/L Potassium, pl 4.3 3.3 - 4.9 mmol/L [facility] Chloride 99 97 - 110 mmol/L [facility] CO2 27 22 - 32 mmol/L [facility] Anion gap 10 2 - 15 mmol/L [facility] BUN 25 6 - 25 mg/dL [facility] Creatinine 1.24 0.80 - 1.30 mg/dL [facility] Glucose 189 70 - 199 mg/dL [facility] Comment: Interpretive Data Fasting glucose >/= [...] 2022. Calcium 9.5 8.5 - 10.3 mg/dL [facility] Blood 04/19/2025 9:05 AM CDT 04/19/2025 10:33 AM CDT us Dinorah Kahn NP LAB BLOOD ORDERABLES Final Result [facility] [place] [address] * Oxyhemoglobin, pulmonary artery (04/18/2025 9:09 PM CDT) Oxyhemoglobin, PA 79.1 % Comment: Interpretive Data No reference range established. Current interpretive data was last revised 2020. Blood 04/18/2025 9:09 PM CDT 04/18/2025 9:37 PM CDT us Wang Almaraz MD LAB BLOOD ORDERABLES Final R esult Performing Organization Address [facility] Co de Phone Number DULCE MARIA [facility] Department [place] [address] * (ABNORMAL) aPTT (04/18/2025 9:09 PM CDT) aPTT 55(H) 28 - 38 sec Comment: Interpretive Data Heparin therapeutic range: 66.0 - 100.0 seconds. Range based on correlation with therapeutic heparin activity range of 0.3 - 0.7 Units/mL. Current interpretive data was last revised on 2023. Blood 04/18/2025 9:09 PM CDT 04/18/2025 9:56 PM CDT Elmira ARANDA - 04/18/2025 10:07 PM CDT STAT PTT [...] ORDERABLES Final Re sult Performing Organization Address [facility] Co de Phone Number DULCE MARIA [facility] Department [place] [address] * eGFR (04/18/2025 9:08 PM CDT) Pathologist [facility] eGFR 60 >=60 mL/min/1. 73 m2 Comment: [...] 04/18/2025 9:47 PM CDT us Libia Suarez NP LAB BLOOD ORDERABLES Final Re sult Performing Organization Address [facility]/ZIP Co de Phone Number [facility] Department [place] [address] * Lactate, whole blood (04/18/2025 9:08 PM CDT) Lactate, bld 1.0 0.7 - 2.0 mmol/L Blood 04/18/2025 9:08 PM CDT 04/18/2025 9:37 PM CDT Wang Almaraz MD LAB BLOOD ORDERABLES Final R esult Performing Organization Address City/[facility]/ZIP Co de Phone Number [facility] [place] [address] * (ABNORMAL) CBC without differential (04/18/2025 9:08 PM CDT) WBC 7.97 3.80 - 9.90 K/cumm Hgb 13.2 13.0 - 17.5 g/dL [facility] Hct 40.6 38.9 - 50.3 % [facility] Plt 188 150 - 400 K/cumm [facility] MPV 11.5 9.1 - 12.3 fL [facility] RBC 4.90 4.30 - 5.80 M/cumm [facility] MCV 82.9 81.3 - 96.4 fL [facility] MCH 26.9(L) 27.1 - 33.3 pg [facility] MCHC 32.5 32.3 - 35.7 g/dL [facility] RDW CV 16.2(H) 11.1 - 14.9 % [facility] RDW SD 48.8(H) 35.7 - 48.1 fL [facility] NRBC abs 0.00 0.00 - 0.01 K/cumm [facility] Blood 04/18/2025 9:08 PM CDT 04/18/2025 9:47 PM CDT Libia Suarez NP LAB BLOOD ORDERABLES Final Re sult Performing Organization Address City/[facility] Co de Phone Number [facility] Department [place] [address] * Phosphorus (04/18/2025 9:08 PM CDT) Phosphorus, pl 4.1 2.3 - 4.5 mg/dL Blood 04/18/2025 9:08 PM CDT 04/18/2025 9:47 PM CDT Libia Suarez NP LAB BLOOD ORDERABLES Final Re sult [facility] [place] [address] * Magnesium (04/18/2025 9:08 PM CDT) Magnesium 2.1 1.4 - 2.5 mg/dL Blood 04/18/2025 9:08 PM CDT 04/18/2025 9:47 PM CDT Libia D. Huchel NURSE FIRST AID LAB BLOOD ORDERABLES Final Re sult Performing Organization Address [facility] Co de Phone Number [facility] [place] [address] * (ABNORMAL) Hepatic function panel (04/18/2025 9:08 PM CDT) Bilirubin, total 0.7 0.1 - 1.2 mg/dL Bilirubin, direct 0.3 0.1 - 0.3 mg/dL [facility] Protein, pl 6.6 6.5 - 8.5 g/dL [facility] Albumin 4.0 3.5 - 5.0 g/dL [facility] Alk phos 229(H) 40 - 130 Units/L [facility] ALT 19 7 - 55 Units/L [facility] AST 25 10 - 50 Units/L [facility] Blood 04/18/2025 9:08 PM CDT 04/18/2025 9:47 PM CDT Libia Suarez NURSE FIRST AID LAB BLOOD ORDERABLES Final Re sult Performing Organization Address [facility] Co de Phone Number [facility] Department [place] [address] * (ABNORMAL) Basic metabolic panel (04/18/2025 9:08 PM CDT) Sodium 136 135 - 145 mmol/L Potassium, pl 4.7 3.3 - 4.9 mmol/L [facility] Chloride 99 97 - 110 mmol/L [facility] CO2 26 22 - 32 mmol/L [facility] Anion gap 11 2 - 15 mmol/L [facility] BUN 28(H) 6 - 25 mg/dL [facility] Creatinine 1.35(H) 0.80 - 1.30 mg/dL [facility] Glucose 123 70 - 199 mg/dL [facility] Comment: Interpretive Data Fasting glucose >/= [...] 9.5 8.5 - 10.3 mg/dL [facility] Blood 04/18/2025 9:08 PM CDT 04/18/2025 9:47 PM CDT us Libia Suarez NURSE FIRST AID LAB BLOOD ORDERABLES Final Re sult Performing Organization Address City/[facility]/ZIP Co de Phone Number DULCE MARIA ARANDA [facility] [place] [address] * IR Outside Reference (04/18/2025 1:54 PM CDT) Impressions [facility] - 04/18/2025 1:54 PM CDT These images are for Reference purposes only and have not been reviewed by [facility]. There will be no report generated by a [facility] Radiologist. Narrative [facility] - 04/18/2025 1:54 PM CDT EXAMINATION: Images For Reference Purposes Only us Yaakov Lawrence MD PhD IMG IR PROCEDURES Final Result Performing Organization Address City/[facility]/ZIP Co de Phone Number [email or web address] * XR Chest 1 View (04/18/2025 9:43 AM CDT) Anatomical Region Laterality Modality Body, Chest N/A Digital Radiogra phy 04/18/2025 10:5 3 AM CDT Impressions 04/18/2025 11:07 AM CDT Comparison 04/17/2025. Left internal jugular [place]-Jayne catheter overlying the right interlobar pulmonary artery. [...] radiograph IMPRESSION: Comparison 04/17/2025. Left internal jugular [place]-Jayne catheter overlying the right interlobar pulmonary artery. Right arm peripherally inserted central venous catheter over the superior vena cava. Scattered mild linear atelectasis is seen, unchanged compared to prior examination. Unchanged small effusions. No pneumothorax. Normal heart size. Dictated by: Jameel Aguust MD PHD The radiology attending physician has [...] AM CDT 04/18/2025 9:21 AM CDT us aWng Almaarz MD LAB BLOOD ORDERABLES Final R esult [facility] [place] [address] * Hemoglobin total, pulmonary artery (04/18/2025 9:03 AM CDT) Hemoglobin total, PA 13.6 13.0 - 17.5 g/dL Blood 04/18/2025 9:03 AM CDT 04/18/2025 9:21 AM CDT us Libia Suarez NURSE FIRST AID LAB BLOOD ORDERABLES Final Re sult Performing Organization Address [facility] Co de Phone Number [facility] [place] [address] * Lactate, whole blood (04/18/2025 9:03 AM CDT) Lactate, bld 1.6 0.7 - 2.0 mmol/L Blood 04/18/2025 9:03 AM CDT 04/18/2025 9:21 AM CDT us Wang Almaraz MD LAB BLOOD ORDERABLES Final R esult Performing Organization Address [facility] de Phone Number [facility] [place] [address] * Potassium, whole blood (04/18/2025 6:23 AM CDT) Potassium, bld 4.6 3.3 - 4.9 mmol/L Blood 04/18/2025 6:23 AM CDT 04/18/2025 6:44 AM CDT us Dinorah Kahn NP LAB BLOOD ORDERABLES Final Result Performing Organization Address [facility] de Phone Number [facility] [place] [employer] [place] [address] * (ABNORMAL) aPTT (04/18/2025 5:31 AM CDT) aPTT 61(H) 28 - 38 sec Comment: Interpretive Data Heparin therapeutic range: 66.0 - 100.0 seconds. Range based on correlation with therapeutic heparin activity range of 0.3 - 0.7 Units/mL. Current interpretive data was last revised on 2023. Blood 04/18/2025 5:31 AM CDT 04/18/2025 6:48 AM CDT Narrative [facility] - 04/18/2025 6:57 AM CDT STAT [...] drawn peripherally (not from CVC). Libia Suarez NURSE FIRST AID LAB BLOOD ORDERABLES Final Re sult Performing Organization Address [facility] Co de Phone Number [facility] Department [place] [address] * Oxyhemoglobin, pulmonary artery (04/17/2025 8:31 PM CDT) Oxyhemoglobin, PA 72.6 % Comment: Interpretive Data No reference range established. Current interpretive data was last revised 2020. Blood 04/17/2025 8:31 PM CDT 04/17/2025 8:43 PM CDT Wang Almaraz MD LAB BLOOD ORDERABLES Final R esult Performing Organization Address City/[facility]/ZIP Co de Phone Number [facility] [place] [address] * Hemoglobin total, pulmonary artery (04/17/2025 8:31 PM CDT) Hemoglobin total, PA 13.6 13.0 - 17.5 g/dL Blood 04/17/2025 8:31 PM CDT 04/17/2025 8:43 PM CDT Wang Almaraz MD LAB BLOOD ORDERABLES Final R esult Performing Organization Address [facility] Co de Phone Number [facility] [place] [address] * eGFR (04/17/2025 8:31 PM CDT) eGFR [...] 04/17/2025 8:45 PM CDT us Libia Suarez NURSE FIRST AID LAB BLOOD ORDERABLES Final Re sult Performing Organization Address City/[facility]/ZIP Co de Phone Number DULCE MARIA ARANDA [facility] Department [place] [address] * Lactate, whole blood (04/17/2025 8:31 PM CDT) Lactate, bld 1.1 0.7 - 2.0 mmol/L Blood 04/17/2025 8:31 PM CDT 04/17/2025 8:43 PM CDT Wang Almaraz MD LAB BLOOD ORDERABLES Final R esult Performing Organization Address [facility] Co de Phone Number [facility] [place] [address] * (ABNORMAL) CBC without differential (04/17/2025 8:31 PM CDT) [facility] WBC 7.87 3.80 - 9.90 K/cumm Hgb 13.4 13.0 - 17.5 g/dL [facility] Hct 40.9 38.9 - 50.3 % [facility] Plt 166 150 - 400 K/cumm [facility] MPV 11.5 9.1 - 12.3 fL [facility] RBC 4.94 4.30 - 5.80 M/cumm [facility] MCV 82.8 81.3 - 96.4 fL [facility] MCH 27.1 27.1 - 33.3 pg [facility] MCHC 32.8 32.3 - 35.7 g/dL [facility] RDW CV 16.3(H) 11.1 - 14.9 % [facility] RDW SD 48.8(H) 35.7 - 48.1 fL [facility] NRBC abs 0.00 0.00 - 0.01 K/cumm [facility] Blood 04/17/2025 8:31 PM CDT 04/17/2025 8:46 PM CDT Libia Suarez NURSE FIRST AID LAB BLOOD ORDERABLES Final Re sult Performing Organization Address City/[facility]/ZIP Co de Phone Number [facility] Department [place] [address] * Phosphorus (04/17/2025 8:31 PM CDT) Pathologist [facility] Phosphorus, pl 3.5 2.3 - 4.5 mg/dL Blood 04/17/2025 8:31 PM CDT 04/17/2025 8:45 PM CDT Libia Suarez NP LAB BLOOD ORDERABLES Final Re sult [facility] [employer] [place] [address] * Magnesium (04/17/2025 8:31 PM CDT) Pathologist [facility] Magnesium 2.1 1.4 - 2.5 mg/dL Blood 04/17/2025 8:31 PM CDT 04/17/2025 8:45 PM CDT Libia Suarez NURSE FIRST AID LAB BLOOD ORDERABLES Final Re sult Performing Organization Address [facility] Co de Phone Number [facility] [employer] [place] [address] * (ABNORMAL) Hepatic function panel (04/17/2025 8:31 PM CDT) Bilirubin, total 0.7 0.1 - 1.2 mg/dL Bilirubin, direct 0.3 0.1 - 0.3 mg/dL [facility] Protein, pl 5.9(L) 6.5 - 8.5 g/dL [facility] Albumin 3.7 3.5 - 5.0 g/dL [facility] Alk phos 209(H) 40 - 130 Units/L [facility] ALT 17 7 - 55 Units/L [facility] AST 25 10 - 50 Units/L [facility] Blood 04/17/2025 8:31 PM CDT 04/17/2025 8:45 PM CDT Libia Suarez NURSE FIRST AID LAB BLOOD ORDERABLES Final Re sult [facility] [employer] [place] [address] * (ABNORMAL) Basic metabolic panel (04/17/2025 8:31 PM CDT) Sodium 133(L) 135 - 145 mmol/L Potassium, pl 5.1(H) 3.3 - 4.9 mmol/L [facility] Chloride 100 97 - 110 mmol/L [facility] CO2 24 22 - 32 mmol/L [facility] Anion gap 9 2 - 15 mmol/L [facility] BUN 25 6 - 25 mg/dL [facility] Creatinine 1.28 0.80 - 1.30 mg/dL [facility] Glucose 136 70 - 199 mg/dL [facility] Comment: Interpretive Data Fasting glucose >/= [...] 2022. Calcium 9.4 8.5 - 10.3 mg/dL [facility] Blood 04/17/2025 8:31 PM CDT 04/17/2025 8:45 PM CDT us Libia Suarez NURSE FIRST AID LAB BLOOD ORDERABLES Final Re sult [facility] Department [place] [address] * [place] Outside Reference (04/17/2025 7:04 PM CDT) Impressions [facility] - 04/17/2025 7:04 PM CDT These images are for Reference purposes only and have not been reviewed by [facility]. There will be no report generated by a [facility] Radiologist. Narrative [facility] - 04/17/2025 7:04 PM CDT EXAMINATION: Images For Reference Purposes Only us Carlos Fernandes MD PhD IMG US PROCEDURES Final Result Performing Organization Address [facility] Co de Phone Number [email or web address] * US Outside Reference (04/17/2025 7:03 PM CDT) Impressions [facility]AC[facility] - 04/17/2025 7:03 PM CDT These images are for Reference purposes only and have not been reviewed by [facility]. There will be no report generated by a [facility] Radiologist. Narrative [facility]AC[facility] - 04/17/2025 7:03 PM CDT EXAMINATION: Images For Reference Purposes Only us Carlos Fernandes MD PhD IMG US PROCEDURES Final Result Performing Organization Address [facility] de Phone Number [email or web address] * Oxyhemoglobin, pulmonary artery (04/17/2025 3:37 PM CDT) Oxyhemoglobin, PA 63.5 % Comment: Interpretive Data No reference range established. Current interpretive data was last revised 2020. Blood 04/17/2025 3:37 PM CDT 04/17/2025 3:44 PM CDT us Wang Almaraz MD LAB BLOOD ORDERABLES Final R esult Performing Organization Address [facility] de Phone Number DULCE MARIA [facility] One [facility] [place] [address] * (ABNORMAL) Type and screen (04/17/2025 3:37 PM CDT) Poppy, indirect Positive(A) ABO Rh O Positive DULCE MARIA ARANDA Blood 04/17/2025 3:37 PM CDT 04/17/2025 3:59 PM CDT Narrative DULCE MARIA ARANDA - 04/17/2025 5:20 PM CDT Has the patient had Daratumumab or Isatuximab in the past 6 months?->Unknown Wang Almaraz MD LAB BLOOD BANK TEST ORDERABL ES Final Result Performing Organization Address [facility] Co [place] [address] * Oxyhemoglobin, pulmonary artery (04/17/2025 11:37 AM CDT) Oxyhemoglobin, PA 68.4 % Comment: Interpretive Data No reference range established. Current interpretive data was last revised 2020. Blood 04/17/2025 11:3 7 AM CDT 04/17/2025 11:45 AM CDT Wang Almaraz MD LAB BLOOD ORDERABLES Final R esult Performing Organization Address [facility] Co de Phone Number DULCE MARIA [facility] [place] [address] * TRANSTHORACIC ECHO (TTE) COMPLETE W DOPPLER/CF W CONTRAST (04/17/2025 9:52 AM CDT) EF Mod BP 27 % CONS SCIMAGE Anatomical Region Laterality Modality Ultrasound 04/17/2025 8:56 AM CDT Narrative 04/17/2025 1:05 PM CDT [facility] [place] [address] Transthoracic Echocardiographic Report Patient Name: GOSIA ZUNIGA W : 1965 (59y 11m) Gender: M Study Date: 04/17/2025 08:56:38 AM Ht(Inch): 72 Wt(Lb): 173.94 BSA: 2 Fishing Floats Assembler: Gina Villalobos RDCS Location: [id number] Order Provider: WANG ALMARAZ Heart Rate: 104 [...] Procedure Note Michael Zelaya MD - 04/17/2025 [facility] [place] [address] Transthoracic Echocardiographic Report Patient Name: GOSIA ZUNIGA W : 1965 (59y 11m) Gender: M Study Date: 04/17/2025 08:56:38 AM Ht(Inch): 72 Wt(Lb): 173.94 BSA: 2 Fishing Floats Assembler: Gina Villalobos RDCS Location: [id number] Order Provider:WANG ALMARAZ Heart Rate: 104 BMI: [...] LA Length 4C 7.16 cm MV Decel Ehyc662.14 msec [ 104.00 - 258.00 ] LA Length 2C 6.26 cm RV S`10.46 cm/sec LA Volume BP 58.31 ml TR Peak Vel2.7 m/s [ 1.0 - 2.8 ] LA Volume Index 29.16 ml/m2 [ 16.00 - 34.00 ] TR Peak PG29.2 mmHg RV Base Dimen 2D 5.3 cm [ 2.5 - 4.2 ] TAPSE 1.47 cm [ 1.71 - 5.00 ] RA Wjfqph331.70 ml RA Volume Index70.35 ml/m2 AoR Diam [...] antibodies except those against Dilma antigens. TRANSFUSION 2015;55;[id number] Blood 04/17/2025 9:07 AM CDT 04/17/2025 9:07 AM CDT us Yaakov Lawrence MD PhD LAB BLOOD BANK WICHO T ORDERABLES Final Result DULCE MARIA BJ[facility]ittney [facility] [place] [address] * XR Chest 1 View (04/17/2025 8:36 AM CDT) Anatomical Region Laterality Modality Body, Chest N/A Computed Radiogr aphy 04/17/2025 11:4 6 AM CDT Impressions 04/17/2025 11:57 AM CDT Comparison is made to chest radiograph 04/16/2025. A left internal jugular [place]-Jayne catheter tip terminates within the right pulmonary [...] chest radiograph 04/16/2025. A left internal jugular [place]-Jayne catheter tip terminates within the right pulmonary [...] it. Electronically signed by: Blake Montanez M.D. us Yaakov Lawrence MD PhD IMG XR [...] AM CDT 04/17/2025 8:25 AM CDT Narrative [facility] - 04/17/2025 9:03 AM CDT STAT PTT [...] peripherally (not from CVC). us Libia Suarez NURSE FIRST AID LAB BLOOD ORDERABLES Final Re sult Performing Organization Address City/[facility]/ZIP Co de Phone Number [facility] [employer] [place] [address] * Lactate, whole blood (04/17/2025 7:57 AM CDT) Lactate, bld 0.8 0.7 - 2.0 mmol/L Blood 04/17/2025 7:57 AM CDT 04/17/2025 8:06 AM CDT us Wang Almaraz MD LAB BLOOD ORDERABLES Final R esult [facility] [employer] [place] [address] * Oxyhemoglobin, pulmonary artery (04/17/2025 7:52 AM CDT) Oxyhemoglobin, PA 68.0 % Comment: Interpretive Data No reference range established. Current interpretive data was last revised 2020. Blood 04/17/2025 7:52 AM CDT 04/17/2025 8:06 AM CDT us Wang Almaraz MD LAB BLOOD ORDERABLES Final R esult Performing Organization Address City/[facility]/ZIP Co de Phone Number DULCE MARIA [facility] Department [place] [address] * eGFR (04/17/2025 7:52 AM CDT) eGFR [...] BLOOD ORDERABL ES Final Result DULCE MARIA [facility] [place] [address] * (ABNORMAL) CBC without differential (04/17/2025 7:52 AM CDT) Pathologist [facility] WBC 7.93 3.80 - 9.90 K/cumm Hgb 12.6(L) 13.0 - 17.5 g/dL [facility] Hct 39.2 38.9 - 50.3 % [facility] Plt 159 150 - 400 K/cumm [facility] MPV 11.5 9.1 - 12.3 fL [facility] RBC 4.62 4.30 - 5.80 M/cumm [facility] MCV 84.8 81.3 - 96.4 fL [facility] MCH 27.3 27.1 - 33.3 pg [facility] MCHC 32.1(L) 32.3 - 35.7 g/dL [facility] RDW CV 16.1(H) 11.1 - 14.9 % [facility] RDW SD 49.9(H) 35.7 - 48.1 fL [facility] NRBC abs 0.00 0.00 - 0.01 K/cumm [facility] Blood 04/17/2025 7:52 AM CDT 04/17/2025 8:05 AM CDT us Yaakov Lawrence MD PhD LAB BLOOD ORDERABL ES Final Result [facility] One [facility] [place] [address] * (ABNORMAL) Type and screen (04/17/2025 7:52 AM CDT) Pathologist [facility] ABO Rh O Positive Poppy, indirect Positive(A) [facility] Blood 04/17/2025 7:5 2 AM CDT 04/17/2025 8:10 AM CDT Narrative [facility] - 04/17/2025 9:07 AM CDT Has the patient had Daratumumab or Isatuximab in the past 6 months?->Unknown Yaakov Lawrence MD PhD LAB BLOOD BANK WICHO T ORDERABLES Final Result Performing Organization Address [facility] [facility] Co de Phone Number [facility] [place] [address] * Phosphorus (04/17/2025 7:52 AM CDT) Phosphorus, pl 3.3 2.3 - 4.5 mg/dL Blood 04/17/2025 7:52 AM CDT 04/17/2025 8:05 AM CDT Yaakov Lawrence MD PhD LAB BLOOD ORDERABL ES Final Result Performing Organization Address [facility] [place] [address] * Magnesium (04/17/2025 7:52 AM CDT) Magnesium 2.1 1.4 - 2.5 mg/dL Blood 04/17/2025 7:52 AM CDT 04/17/2025 8:05 AM CDT Result [facility] Yaakov Lawrence MD PhD LAB BLOOD ORDERABL ES Final Result Performing Organization Address [facility] de Phone Number [facility] [employer] [place] [address] * (ABNORMAL) Hepatic function panel (04/17/2025 7:52 AM CDT) Bilirubin, total 0.9 0.1 - 1.2 mg/dL Bilirubin, direct 0.4(H) 0.1 - 0.3 mg/dL [facility] Protein, pl 6.0(L) 6.5 - 8.5 g/dL [facility] Albumin 3.8 3.5 - 5.0 g/dL [facility] Alk phos 193(H) 40 - 130 Units/L [facility] ALT 17 7 - 55 Units/L [facility] AST 19 10 - 50 Units/L [facility] Blood 04/17/2025 7:52 AM CDT 04/17/2025 8:05 AM CDT Yaakov Lawrence MD PhD LAB BLOOD ORDERABL ES Final Result Performing Organization Address City/[facility]/ZIP Co de Phone Number [facility] [place] [address] * Basic metabolic panel (04/17/2025 7:52 AM CDT) [facility] Sodium 136 135 - 145 mmol/L Potassium, pl 4.7 3.3 - 4.9 mmol/L [facility] Chloride 103 97 - 110 mmol/L [facility] CO2 24 22 - 32 mmol/L [facility] Anion gap 9 2 - 15 mmol/L [facility] BUN 23 6 - 25 mg/dL [facility] Creatinine 1.10 0.80 - 1.30 mg/dL [facility] Glucose 110 70 - 199 mg/dL [facility] Comment: Interpretive Data Fasting glucose >/= [...] 2022. Calcium 9.2 8.5 - 10.3 mg/dL [facility] Blood 04/17/2025 7:52 AM CDT 04/17/2025 8:05 AM CDT Yaakov Lawrence MD PhD LAB BLOOD ORDERABL ES Final Result Performing Organization Address City/[facility]/ZIP Co de Phone Number [facility] [place] [address] * (ABNORMAL) aPTT (04/17/2025 6:24 AM CDT) Pathologist [facility] aPTT 58(H) 28 - 38 sec Comment: Interpretive Data Heparin therapeutic range: 66.0 - 100.0 seconds. Range based on correlation with therapeutic heparin activity range of 0.3 - 0.7 Units/mL. Current interpretive data was last revised on 2023. Blood 04/17/2025 6:24 AM CDT 04/17/2025 6:44 AM CDT Narrative [facility] - 04/17/2025 7:07 AM CDT STAT [...] NP LAB BLOOD ORDERABLES Final Re sult [facility] [place] [address] * Oxyhemoglobin, pulmonary artery (04/17/2025 4:30 AM CDT) Pathologist [facility] Oxyhemoglobin, PA 64.5 % Comment: Interpretive Data No reference range established. Current interpretive data was last revised 2020. Blood 04/17/2025 4:30 AM CDT 04/17/2025 4:39 AM CDT us Wang Almaraz MD LAB BLOOD ORDERABLES Final R esult Performing Organization Address City/[facility]/ZIP Co de Phone Number DUL[facility] MARIA ARANDA Radha [facility] [place] [address] * Hemoglobin total, pulmonary artery (04/17/2025 4:30 AM CDT) Pathologist [facility] Hemoglobin total, PA 13.9 13.0 - 17.5 g/dL Blood 04/17/2025 4:30 AM CDT 04/17/2025 4:39 AM CDT Wang Almaraz MD LAB BLOOD ORDERABLES Final R [facility] Performing Organization Address [facility] Co de Phone Number DUL[facility] MARIA ARANDA Radha [facility] Department [place] [address] * (ABNORMAL) aPTT (04/17/2025 4:30 AM CDT) Pathologist [facility] aPTT 77(H) 28 - 38 sec Comment: Interpretive Data Heparin therapeutic range: 66.0 - 100.0 seconds. Range based on correlation with therapeutic heparin activity range of 0.3 - 0.7 Units/mL. Current interpretive data was last revised on 2023. Blood 04/17/2025 4:30 AM CDT 04/17/2025 4:45 AM CDT Narrative [facility] - 04/17/2025 5:13 AM CDT STAT PTT [...] ORDERABLES Final Re sult Performing Organization Address [facility] Co de Phone Number [facility] [employer] [place] [address] * Oxyhemoglobin, pulmonary artery (04/16/2025 8:59 PM CDT) Oxyhemoglobin, PA 73.5 % Comment: Interpretive Data No reference range established. Current interpretive data was last revised 2020. Blood 04/16/2025 8:59 PM CDT 04/16/2025 9:07 PM CDT us Wang Almaraz MD LAB BLOOD ORDERABLES Final R esult Performing Organization Address [facility] Co de Phone Number [facility] [place] [address] * Hemoglobin total, pulmonary artery (04/16/2025 8:59 PM CDT) Hemoglobin total, PA 13.9 13.0 - 17.5 g/dL Blood 04/16/2025 8:59 PM CDT 04/16/2025 9:07 PM CDT us Wang Almaraz MD LAB BLOOD ORDERABLES Final R esult Performing Organization Address [facility] Co de Phone Number [facility] [place] [address] * Lactate, whole blood (04/16/2025 8:59 PM CDT) Lactate, bld 1.8 0.7 - 2.0 mmol/L Blood 04/16/2025 8:59 PM CDT 04/16/2025 9:07 PM CDT us Wang Almaraz MD LAB BLOOD ORDERABLES Final R esult Performing Organization Address City/[facility] Co de Phone Number [facility] One [facility] Department [place] [address] * ECG 12 lead (04/16/2025 5:55 PM CDT) Ventricular Rate EKG/Min 104 BPM [facility] Atrial Rate 104 BPM [facility] NM-Interval (MSEC) 212 ms [facility] QRS-Interval (MSEC) 98 ms [facility] QT-Interval (MSEC) 334 ms [facility] QTc 439 ms [facility] P [place] 81 degrees [facility] R [place] -87 degrees [facility] T [place] 78 degrees [facility] Diagnosis Sinus tachycardia with 1st degree A-V block Left axis deviation Low voltage QRS Incomplete right bundle branch block Possible Inferior infarct (cited on or before 28-NOV-2023) Cannot rule out Anterior infarct (cited on or before 01-JUL-2021) Abnormal ECG When compared with ECG of 08-APR-2025 08:19, No significant change was found Confirmed by Ok Cordero MD ([id number]) on 04/17/2025 10:43:48 AM [facility] 04/16/2025 5:55 PM CDT 04/17/2025 10:43 AM CDT Yaakov Lawrence MD PhD ECG ORDERABLES Fi nal Result [facility] * Blood culture Blood (04/16/2025 5:51 PM CDT) Report Final Report: No growth Blood 04/16/2025 5:51 PM CDT 04/16/2025 6:26 PM CDT Narrative [facility] - 04/21/2025 7:00 AM CDT From a [...] performance characteristics have been verified by the [facility]biology Laboratory. For questions about this culture, contact the Microbiology Laboratory at [phone]. Interpretive data was last revised on 24. Yaakov Lawrence MD PhD LAB MICROBIOLOGY - GENERAL ORDERABLES Final Result D[facility] MARIA ARANDA One [facility] Department [place] [address] * Blood culture Blood (04/16/2025 5:51 PM CDT) Report Final Report: No growth Blood 04/16/2025 5:51 PM CDT 04/16/2025 6:26 PM CDT Narrative [facility] - 04/21/2025 7:00 AM CDT Collection->Peripheral 1. [...] performance characteristics have been verified by the [facility]biology [facility]. For questions about this culture, contact the Microbiology Laboratory at [phone]. Interpretive data was last revised on 24. us Yaakov Lawrence MD PhD LAB MICROBIOLOGY - GENERAL ORDERABLES Final Result [facility] One [facility] Department [place] [address] * XR Chest 1 View (04/16/2025 5:48 PM CDT) Anatomical Region Laterality Modality Body, Chest N/A Digital Radiogra phy 04/17/2025 7:37 AM CDT Impressions 04/17/2025 7:37 AM CDT Comparison 04/09/2025. [place]ne catheter in place with tip projecting over [...] 1 view chest radiograph IMPRESSION: Comparison 04/09/2025. [place]ne catheter in place with tip projecting over [...] Result * aPTT (04/16/2025 5:37 PM CDT) Pathologist [facility] aPTT 34 28 - 38 sec Comment: Interpretive Data Heparin therapeutic range: 66.0 - 100.0 seconds. Range based on correlation with therapeutic heparin activity range of 0.3 - 0.7 Units/mL. Current interpretive data was last revised on 2023. Blood 04/16/2025 5:37 PM CDT 04/16/2025 5:46 PM CDT Wang Almaraz MD LAB BLOOD ORDERABLES Final R esult Performing Organization Address [facility] Co de Phone Number [facility] [place] [address] * Protime-INR (04/16/2025 5:37 PM CDT) Pathologist [facility] PT 11.5 9.7 - 13.0 sec INR 1.06 0.90 - 1.20 [facility] Comment: Interpretive data Oral anticoagulant therapeutic [...] ORDERABL ES Final Result Performing Organization Address City/[facility]/ZIP Co de Phone Number [facility] [place] [address] * eGFR (04/16/2025 5:33 PM CDT) Pathologist [facility] eGFR 70 >=60 mL/min/1. 73 m2 Comment: [...] ORDERABL ES Final Result Performing Organization Address City/[facility]/ZIP Co de Phone Number [facility] Department of [employer] [place] [address] * Lactate, whole blood (04/16/2025 5:33 PM CDT) Lactate, bld 1.0 0.7 - 2.0 mmol/L Blood 04/16/2025 5:33 PM CDT 04/16/2025 5:45 PM CDT Yaakov Lawrence MD PhD LAB BLOOD ORDERABL ES Final Result DULCE MARIA [facility] Department [place] [address] * (ABNORMAL) CBC without differential (04/16/2025 5:33 PM CDT) WBC 7.51 3.80 - 9.90 K/cumm Hgb 13.4 13.0 - 17.5 g/dL [facility] Hct 41.9 38.9 - 50.3 % [facility] Plt 161 150 - 400 K/cumm [facility] MPV 11.2 9.1 - 12.3 fL [facility] RBC 4.99 4.30 - 5.80 M/cumm [facility] MCV 84.0 81.3 - 96.4 fL [facility] MCH 26.9(L) 27.1 - 33.3 pg [facility] MCHC 32.0(L) 32.3 - 35.7 g/dL [facility] RDW CV 16.1(H) 11.1 - 14.9 % [facility] RDW SD 48.3(H) 35.7 - 48.1 fL [facility] NRBC abs 0.00 0.00 - 0.01 K/cumm [facility] Blood 04/16/2025 5:33 PM CDT 04/16/2025 6:04 PM CDT Yaakov Lawrence MD PhD LAB BLOOD ORDERABL ES Final Result [facility] One [facility] [place] [address] * Basic metabolic panel (04/16/2025 5:33 PM CDT) Sodium 138 135 - 145 mmol/L Potassium, pl 4.9 3.3 - 4.9 mmol/L [facility] Chloride 101 97 - 110 mmol/L [facility] CO2 26 22 - 32 mmol/L [facility] Anion gap 11 2 - 15 mmol/L [facility] BUN 24 6 - 25 mg/dL [facility] Creatinine 1.19 0.80 - 1.30 mg/dL [facility] Glucose 94 70 - 199 mg/dL [facility] Comment: Interpretive Data Fasting glucose >/= [...] 2022. Calcium 9.8 8.5 - 10.3 mg/dL [facility] Blood 04/16/2025 5:33 PM CDT 04/16/2025 6:04 PM CDT us Yaakov Lawrence MD PhD LAB BLOOD ORDERABL ES Final Result [facility] One [facility] [place] [address] * RIGHT HEART CATH (04/16/2025 12:09 PM [...] usual sterile fashion. 3) I provided direct [id number] monitoring of conscious sedation which was administered by an independent trained nurse using Fentanyl 25 mcg and Midazolam 1 mg. Sedation time 50 min. Local anesthesia with 1% lidocaine was used. 4) Venous access was obtained in theLeft Internal Jugular vein using modified Seldinger technique and micropuncture approach. A 8 Guyanese sheath was secured into place. 5) Right heart catheterization was performed with a 7.5 [place]ese VIP Eliel Jayne catheter. The catheter was [...] with the referring physician. Felicitas Rodgers DO Farm Operations Manager Division of Cardiology [facility] [employer] [facility] Araceli Romero NP CV CARDIAC CATH PROCEDUR ES Final Result * (ABNORMAL) POCT oxyhemoglobin (04/16/2025 11:50 AM CDT) PYTHON DJANGO DEVELOPER Oxyhemoglobin 68.2 >=65.0 % [facility] Hemoglobin 12.6(L) 13.0 - 17.5 g/dL [facility] PYTHON DJANGO DEVELOPER O2 content 11.9(L) 15.0 - 22.0 Vol % [facility] Anatomic Site aPOC Pulm Artery [facility] Blood 04/16/2025 11:5 0 AM CDT 04/16/2025 11:50 AM CDT Yaakov Lawrence MD PhD LAB POCT ORDERABLE S - DEVICE Final Result Performing Organization Address City/[facility] Co de Phone Number [facility] [place] [address] * (ABNORMAL) POCT oxyhemoglobin (04/16/2025 11:49 AM CDT) PYTHON DJANGO DEVELOPER Oxyhemoglobin 68.8 >=65.0 % PYTHON DJANGO DEVELOPER Hemoglobin 12.8(L) 13.0 - 17.5 g/dL [facility] PYTHON DJANGO DEVELOPER O2 content 12.3(L) 15.0 - 22.0 Vol % [facility] Anatomic Site aPOC Pulm Artery [facility] Blood 04/16/2025 11:4 9 AM CDT 04/16/2025 11:49 AM CDT Yaakov Lawrence MD PhD LAB POCT ORDERABLE S - DEVICE Final Result Performing Organization Address [facility] de Phone Number [facility] [place] [address] * eGFR (04/16/2025 5:58 AM CDT) eGFR [...] CDT 04/16/2025 6:45 AM CDT Blake Peña NURSE FIRST AID LAB BLOOD ORDERABLES Final Result Performing Organization Address [facility] Co de Phone Number [facility] Department [place] [employer] [place] [address] * (ABNORMAL) aPTT (04/16/2025 5:58 AM CDT) [facility] aPTT 70(H) 28 - 38 sec Comment: Interpretive Data Heparin therapeutic range: 66.0 - 100.0 seconds. Range based on correlation with therapeutic heparin activity range of 0.3 - 0.7 Units/mL. Current interpretive data was last revised on 2023. Blood 04/16/2025 5:58 AM CDT 04/16/2025 6:52 AM CDT Narrative [facility] - 04/16/2025 7:01 AM CDT STAT PTT [...] drawn peripherally (not from CVC). Libia Suarez NURSE FIRST AID LAB BLOOD ORDERABLES Final Re sult Performing Organization Address [facility]/ZIP Co de Phone Number [facility] Department [place] [address] * (ABNORMAL) CBC without differential (04/16/2025 5:58 AM CDT) [facility] WBC 8.28 3.80 - 9.90 K/cumm Hgb 13.2 13.0 - 17.5 g/dL [facility] Hct 41.5 38.9 - 50.3 % [facility] Plt 176 150 - 400 K/cumm [facility] MPV 12.0 9.1 - 12.3 fL [facility] RBC 4.99 4.30 - 5.80 M/cumm [facility] MCV 83.2 81.3 - 96.4 fL [facility] MCH 26.5(L) 27.1 - 33.3 pg [facility] MCHC 31.8(L) 32.3 - 35.7 g/dL [facility] RDW CV 15.9(H) 11.1 - 14.9 % [facility] RDW SD 47.2 35.7 - 48.1 fL [facility] NRBC abs 0.00 0.00 - 0.01 K/cumm [facility] Blood 04/16/2025 5:58 AM CDT 04/16/2025 6:45 AM CDT Blake Peña NP LAB BLOOD ORDERABLES Final Result [facility] One [facility] Department [place] [address] * (ABNORMAL) Basic metabolic panel (04/16/2025 5:58 AM CDT) [facility] Sodium 134(L) 135 - 145 mmol/L Potassium, pl 4.7 3.3 - 4.9 mmol/L [facility] Chloride 98 97 - 110 mmol/L [facility] CO2 28 22 - 32 mmol/L [facility] Anion gap 8 2 - 15 mmol/L [facility] BUN 31(H) 6 - 25 mg/dL [facility] Creatinine 1.30 0.80 - 1.30 mg/dL [facility] Glucose 104 70 - 199 mg/dL [facility] Comment: Interpretive Data Fasting glucose >/= [...] 2022. Calcium 9.9 8.5 - 10.3 mg/dL [facility] Blood 04/16/2025 5:58 AM CDT 04/16/2025 6:45 AM CDT Blake Peña NURSE FIRST AID LAB BLOOD ORDERABLES Final Result Performing Organization Address [facility] Co de Phone Number [facility] Department [place] [address] * Infection Prevention Shady auris PCR, surveillance Axilla/Groin (04/15/2025 12:18 PM CDT) Shady auris DNA Not Detected Not Detected [facility] Comment: Interpretive Data Testing performed by [facility] Infectious Disease Laboratory using the Lucas carlos [id number] Shady auris assay. This assay detects DNA from Shady auris using Real-Time PCR. This assay is laboratory developed and is not cleared by the [facility] Food and Drug Administration. The performance characteristics have been verified by the [facility]ious Disease [facility]. Axilla/Groin 04/15/2025 12:1 8 PM CDT 04/15/2025 1:09 PM CDT Narrative [facility] - 04/16/2025 1:28 PM CDT Order placed by [facility] due to ring surveillance. Instant Order Generic Provider LAB MICROBIOLOGY - GENERAL ORDERABLES Final Result Performing Organization Address [facility] Co de Phone Number [facility] Department [place] [address] [facility] * eGFR (04/15/2025 5:09 AM CDT) eGFR [...] 04/15/2025 5:56 AM CDT us Blake Peña NURSE FIRST AID LAB BLOOD ORDERABLES Final Result [facility] One [facility] [place] [address] * (ABNORMAL) aPTT (04/15/2025 5:09 AM CDT) aPTT 69(H) 28 - 38 sec Comment: Interpretive Data Heparin therapeutic range: 66.0 - 100.0 seconds. Range based on correlation with therapeutic heparin activity range of 0.3 - 0.7 Units/mL. Current interpretive data was last revised on 2023. Blood 04/15/2025 5:09 AM CDT 04/15/2025 6:01 AM CDT Narrative [facility] - 04/15/2025 6:11 AM CDT STAT [...] drawn peripherally (not from CVC). Libia Suarez NURSE FIRST AID LAB BLOOD ORDERABLES Final Re sult [facility] One [facility] Department [place] [address] * (ABNORMAL) CBC without differential (04/15/2025 5:09 AM CDT) [facility] WBC 7.65 3.80 - 9.90 K/cumm Hgb 12.7(L) 13.0 - 17.5 g/dL [facility] Hct 39.1 38.9 - 50.3 % [facility] Plt 162 150 - 400 K/cumm [facility] MPV 12.1 9.1 - 12.3 fL [facility] RBC 4.77 4.30 - 5.80 M/cumm [facility] MCV 82.0 81.3 - 96.4 fL [facility] MCH 26.6(L) 27.1 - 33.3 pg [facility] MCHC 32.5 32.3 - 35.7 g/dL [facility] RDW CV 15.9(H) 11.1 - 14.9 % [facility] RDW SD 47.3 35.7 - 48.1 fL [facility] NRBC abs 0.00 0.00 - 0.01 K/cumm [facility] Blood 04/15/2025 5:09 AM CDT 04/15/2025 5:56 AM CDT us Blake Peña NURSE FIRST AID LAB BLOOD ORDERABLES Final Result [facility] One [facility] Department [place] [address] * Magnesium (04/15/2025 5:09 AM CDT) [facility] Magnesium 2.5 1.4 - 2.5 mg/dL Blood 04/15/2025 5:09 AM CDT 04/15/2025 5:56 AM CDT Yaakov Lawrence MD PhD LAB BLOOD ORDERABL ES Final Result Performing Organization Address [facility] Co de Phone Number [facility] Department [place] [address] * (ABNORMAL) Basic metabolic panel (04/15/2025 5:09 AM CDT) [facility] Sodium 133(L) 135 - 145 mmol/L Potassium, pl 4.3 3.3 - 4.9 mmol/L [facility] Chloride 97 97 - 110 mmol/L [facility] CO2 27 22 - 32 mmol/L [facility] Anion gap 9 2 - 15 mmol/L [facility] BUN 30(H) 6 - 25 mg/dL [facility] Creatinine 1.34(H) 0.80 - 1.30 mg/dL [facility] Glucose 101 70 - 199 mg/dL [facility] Comment: Interpretive Data Fasting glucose >/= [...] 2022. Calcium 9.6 8.5 - 10.3 mg/dL [facility] Blood 04/15/2025 5:09 AM CDT 04/15/2025 5:56 AM CDT Blake Peña NURSE FIRST AID LAB BLOOD ORDERABLES Final Result Performing Organization Address City/[facility] Co de Phone Number [facility] [place] [address] * (ABNORMAL) aPTT (04/14/2025 4:47 PM CDT) aPTT 82(H) 28 - 38 sec Comment: Interpretive Data Heparin therapeutic range: 66.0 - 100.0 seconds. Range based on correlation with therapeutic heparin activity range of 0.3 - 0.7 Units/mL. Current interpretive data was last revised on 2023. Blood 04/14/2025 4:47 PM CDT 04/14/2025 5:22 PM CDT Araceli Romero NURSE FIRST AID LAB BLOOD ORDERABLES Fin al Result Performing Organization Address [facility] de Phone Number [facility] [place] [address] * (ABNORMAL) aPTT (04/14/2025 11:34 AM CDT) aPTT 76(H) 28 - 38 sec Comment: Interpretive Data Heparin therapeutic range: 66.0 - 100.0 seconds. Range based on correlation with therapeutic heparin activity range of 0.3 - 0.7 Units/mL. Current interpretive data was last revised on 2023. Blood 04/14/2025 11:3 4 AM CDT 04/14/2025 12:24 PM CDT Araceli Romero NURSE FIRST AID LAB BLOOD ORDERABLES Fin al Result Performing Organization Address [facility] Co de Phone [facility] [place] [address] * (ABNORMAL) eGFR (04/14/2025 4:00 AM CDT) [...] 04/14/2025 4:45 AM CDT us Blake Peña NURSE FIRST AID LAB BLOOD ORDERABLES Final Result Performing Organization Address City/State/[facility] Co de Phone Number [facility] One [facility] Department [place] [address] * (ABNORMAL) aPTT (04/14/2025 4:00 AM CDT) aPTT 63(H) 28 - 38 sec Comment: Interpretive Data Heparin therapeutic range: 66.0 - 100.0 seconds. Range based on correlation with therapeutic heparin activity range of 0.3 - 0.7 Units/mL. Current interpretive data was last revised on 2023. Blood 04/14/2025 4:00 AM CDT 04/14/2025 4:41 AM CDT us Medina Mitchell MD PhD LAB BLOOD ORDERABLES Fi nal Result Performing Organization Address City/[facility] de Phone Number [facility] Department [place] [address] * (ABNORMAL) CBC without differential (04/14/2025 4:00 AM CDT) [facility] WBC 7.11 3.80 - 9.90 K/cumm Hgb 12.6(L) 13.0 - 17.5 g/dL [facility] Hct 38.3(L) 38.9 - 50.3 % [facility] Plt 160 150 - 400 K/cumm [facility] MPV 11.8 9.1 - 12.3 fL [facility] RBC 4.66 4.30 - 5.80 M/cumm [facility] MCV 82.2 81.3 - 96.4 fL [facility] MCH 27.0(L) 27.1 - 33.3 pg [facility] MCHC 32.9 32.3 - 35.7 g/dL [facility] RDW CV 15.9(H) 11.1 - 14.9 % [facility] RDW SD 46.9 35.7 - 48.1 fL [facility] NRBC abs 0.00 0.00 - 0.01 K/cumm [facility] Blood 04/14/2025 4:0 0 AM CDT 04/14/2025 4:45 AM CDT Blake Peña NURSE FIRST AID LAB BLOOD ORDERABLES Final Result Performing Organization Address [facility] Co de Phone Number [facility] Department [place] [address] * (ABNORMAL) Basic metabolic panel (04/14/2025 4:00 AM CDT) [facility] Sodium 136 135 - 145 mmol/L Potassium, pl 4.2 3.3 - 4.9 mmol/L [facility] Chloride 97 97 - 110 mmol/L [facility] CO2 29 22 - 32 mmol/L [facility] Anion gap 10 2 - 15 mmol/L [facility] BUN 30(H) 6 - 25 mg/dL [facility] Creatinine 1.45(H) 0.80 - 1.30 mg/dL [facility] Glucose 97 70 - 199 mg/dL [facility] Comment: Interpretive Data Fasting glucose >/= [...] 2022. Calcium 9.5 8.5 - 10.3 mg/dL [facility] Blood 04/14/2025 4:00 AM CDT 04/14/2025 4:45 AM CDT Blake Peña NURSE FIRST AID LAB BLOOD ORDERABLES Final Result [facility] One [facility] Department [place] [address] * (ABNORMAL) aPTT (04/13/2025 5:04 AM CDT) [facility] aPTT 68(H) 28 - 38 sec Comment: Interpretive Data Heparin therapeutic range: 66.0 - 100.0 seconds. Range based on correlation with therapeutic heparin activity range of 0.3 - 0.7 Units/mL. Current interpretive data was last revised on 2023. Blood 04/13/2025 5:04 AM CDT 04/13/2025 5:55 AM CDT Narrative [facility] - 04/13/2025 6:19 AM CDT STAT PTT [...] peripherally (not from CVC). us Libia Suarez NURSE FIRST AID LAB BLOOD ORDERABLES Final Re sult Performing Organization Address City/[facility]/ZIP Co de Phone Number [facility] Department [place] [address] * eGFR (04/13/2025 4:30 AM CDT) eGFR [...] 04/13/2025 5:29 AM CDT us Blake Peña NURSE FIRST AID LAB BLOOD ORDERABLES Final Result Performing Organization Address [facility]/ZIP Co de Phone Number [facility] Department [place] [address] * (ABNORMAL) CBC without differential (04/13/2025 4:30 AM CDT) [facility] WBC 7.76 3.80 - 9.90 K/cumm Hgb 12.9(L) 13.0 - 17.5 g/dL [facility] Hct 39.4 38.9 - 50.3 % [facility] Plt 160 150 - 400 K/cumm [facility] MPV 11.6 9.1 - 12.3 fL [facility] RBC 4.74 4.30 - 5.80 M/cumm [facility] MCV 83.1 81.3 - 96.4 fL [facility] MCH 27.2 27.1 - 33.3 pg [facility] MCHC 32.7 32.3 - 35.7 g/dL [facility] RDW CV 15.6(H) 11.1 - 14.9 % [facility] RDW SD 46.6 35.7 - 48.1 fL [facility] NRBC abs 0.00 0.00 - 0.01 K/cumm [facility] Blood 04/13/2025 4:30 AM CDT 04/13/2025 5:30 AM CDT Blake Peña NURSE FIRST AID LAB BLOOD ORDERABLES Final Result [facility] One [facility] Department [place] [address] * (ABNORMAL) Basic metabolic panel (04/13/2025 4:30 AM CDT) [facility] Sodium 136 135 - 145 mmol/L Potassium, pl 4.2 3.3 - 4.9 mmol/L [facility] Chloride 97 97 - 110 mmol/L [facility] CO2 27 22 - 32 mmol/L [facility] Anion gap 12 2 - 15 mmol/L [facility] BUN 29(H) 6 - 25 mg/dL [facility] Creatinine 1.24 0.80 - 1.30 mg/dL [facility] Glucose 103 70 - 199 mg/dL [facility] Comment: Interpretive Data Fasting glucose >/= [...] 2022. Calcium 9.7 8.5 - 10.3 mg/dL [facility] Blood 04/13/2025 4:30 AM CDT 04/13/2025 5:29 AM CDT Blake Peña NURSE FIRST AID LAB BLOOD ORDERABLES Final Result Performing Organization Address [facility] Co de Phone Number [facility] Department [place] [address] * Infection Prevention Shady auris PCR, surveillance Axilla/Groin (04/12/2025 4:21 AM CDT) Shady auris DNA Not Detected Not Detected [facility] Comment: Interpretive Data Testing performed by [facility] Infectious Disease [facility] using the Lucas carlos 6800 Shady auris assay. This assay detects DNA from Shady auris using Real-Time PCR. This assay is laboratory developed and is not cleared by the [place] Food and Drug Administration. The performance characteristics have been verified by the [facility]ious Disease [facility]. Axilla/Groin 04/12/2025 4:21 AM CDT 04/12/2025 5:42 AM CDT Narrative [facility] - 04/12/2025 1:32 PM CDT Order placed by [facility] due to ring surveillance. us Instant Order Generic Provider LAB MICROBIOLOGY - GENERAL ORDERABLES Final Result Performing Organization Address [facility] Co de Phone Number [facility] Department [place] [address] [facility] * eGFR (04/12/2025 4:21 AM CDT) eGFR [...] 04/12/2025 4:50 AM CDT us Blake Peña NURSE FIRST AID LAB BLOOD ORDERABLES Final Result [facility] One [facility] Department [place] [address] * (ABNORMAL) aPTT (04/12/2025 4:21 AM CDT) aPTT 80(H) 28 - 38 sec Comment: Interpretive Data Heparin therapeutic range: 66.0 - 100.0 seconds. Range based on correlation with therapeutic heparin activity range of 0.3 - 0.7 Units/mL. Current interpretive data was last revised on 2023. Blood 04/12/2025 4:21 AM CDT 04/12/2025 4:50 AM CDT Narrative [facility] - 04/12/2025 5:06 AM CDT STAT PTT [...] peripherally (not from CVC). us Libia Suarez NURSE FIRST AID LAB BLOOD ORDERABLES Final Re sult [facility] Department [place] [address] * (ABNORMAL) CBC without differential (04/12/2025 4:21 AM CDT) WBC 7.37 3.80 - 9.90 K/cumm Hgb 13.2 13.0 - 17.5 g/dL [facility] Hct 40.6 38.9 - 50.3 % [facility] Plt 159 150 - 400 K/cumm [facility] MPV 11.5 9.1 - 12.3 fL [facility] RBC 4.90 4.30 - 5.80 M/cumm [facility] MCV 82.9 81.3 - 96.4 fL [facility] MCH 26.9(L) 27.1 - 33.3 pg [facility] MCHC 32.5 32.3 - 35.7 g/dL [facility] RDW CV 15.7(H) 11.1 - 14.9 % [facility] RDW SD 46.6 35.7 - 48.1 fL [facility] NRBC abs 0.00 0.00 - 0.01 K/cumm [facility] Blood 04/12/2025 4:21 AM CDT 04/12/2025 4:50 AM CDT Blake Peña NURSE FIRST AID LAB BLOOD ORDERABLES Final Result Performing Organization Address City/[facility]/ZIP Co de Phone Number [facility] Radha [facility] Department [place] [address] * (ABNORMAL) Basic metabolic panel (04/12/2025 4:21 AM CDT) Sodium 135 135 - 145 mmol/L Potassium, pl 4.3 3.3 - 4.9 mmol/L [facility] Chloride 97 97 - 110 mmol/L [facility] CO2 26 22 - 32 mmol/L [facility] Anion gap 12 2 - 15 mmol/L [facility] BUN 29(H) 6 - 25 mg/dL [facility] Creatinine 1.34(H) 0.80 - 1.30 mg/dL [facility] Glucose 115 70 - 199 mg/dL [facility] Comment: Interpretive Data Fasting glucose >/= [...] 2022. Calcium 10.0 8.5 - 10.3 mg/dL [facility] Blood 04/12/2025 4:21 AM CDT 04/12/2025 4:50 AM CDT us Blake Peña NURSE FIRST AID LAB BLOOD ORDERABLES Final Result [facility] Radha [facility] Department [place] [address] * US Guided Thyroid Fine Needle Aspiration [...] needles. The samples were handed to the bar captain. The patient's skin was cleaned and dressed. [...] needles. The samples were handed to the bar captain. The patient's skin was cleaned and dressed. [...] it. Electronically signed by: Agus Pittman M.D. us Araceli Romero NURSE FIRST AID IMG US PROCEDURES Final Result * (ABNORMAL) [...] 04/11/2025 7:00 AM CDT us Blake Peña NURSE FIRST AID LAB BLOOD ORDERABLES Final Result [facility] One [facility] Department [place] [address] * (ABNORMAL) aPTT (04/11/2025 5:43 AM CDT) [facility] aPTT 89(H) 28 - 38 sec Comment: Interpretive Data Heparin therapeutic range: 66.0 - 100.0 seconds. Range based on correlation with therapeutic heparin activity range of 0.3 - 0.7 Units/mL. Current interpretive data was last revised on 2023. Blood 04/11/2025 5:43 AM CDT 04/11/2025 6:51 AM CDT Narrative [facility] - 04/11/2025 7:20 AM CDT STAT PTT [...] drawn peripherally (not from CVC). Libia Suarez NURSE FIRST AID LAB BLOOD ORDERABLES Final Re sult [facility] One [facility] Department [place] [address] * (ABNORMAL) CBC without differential (04/11/2025 5:43 AM CDT) [facility] WBC 7.64 3.80 - 9.90 K/cumm Hgb 12.8(L) 13.0 - 17.5 g/dL [facility] Hct 39.5 38.9 - 50.3 % [facility] Plt 173 150 - 400 K/cumm [facility] MPV 11.6 9.1 - 12.3 fL [facility] RBC 4.77 4.30 - 5.80 M/cumm [facility] MCV 82.8 81.3 - 96.4 fL [facility] MCH 26.8(L) 27.1 - 33.3 pg [facility] MCHC 32.4 32.3 - 35.7 g/dL [facility] RDW CV 15.5(H) 11.1 - 14.9 % [facility] RDW SD 46.7 35.7 - 48.1 fL [facility] NRBC abs 0.00 0.00 - 0.01 K/cumm [facility] Blood 04/11/2025 5:43 AM CDT 04/11/2025 7:05 AM CDT us Blake Peña NURSE FIRST AID LAB BLOOD ORDERABLES Final Result Performing Organization Address City/[facility]/ZIP Co de Phone Number [facility] Department [place] [address] * Magnesium (04/11/2025 5:43 AM CDT) [facility] Magnesium 2.1 1.4 - 2.5 mg/dL Blood 04/11/2025 5:43 AM CDT 04/11/2025 7:00 AM CDT us Blake Peña NURSE FIRST AID LAB BLOOD ORDERABLES Final Result Performing Organization Address City/[facility] Co de Phone Number [facility] [place] [address] * (ABNORMAL) Basic metabolic panel (04/11/2025 5:43 AM CDT) [facility] Sodium 137 135 - 145 mmol/L Potassium, pl 4.1 3.3 - 4.9 mmol/L [facility] Chloride 97 97 - 110 mmol/L [facility] CO2 28 22 - 32 mmol/L [facility] Anion gap 12 2 - 15 mmol/L [facility] BUN 33(H) 6 - 25 mg/dL [facility] Creatinine 1.62(H) 0.80 - 1.30 mg/dL [facility] Glucose 102 70 - 199 mg/dL [facility] Comment: Interpretive Data Fasting glucose >/= [...] 2022. Calcium 9.0 8.5 - 10.3 mg/dL [facility] Blood 04/11/2025 5:43 AM CDT 04/11/2025 7:00 AM CDT Blake Peña NP LAB BLOOD ORDERABLES Final Result [facility] [place] [address] * Cytology (04/11/2025 12:00 AM CDT) Fluid (Thyroid Gland (Cytology)) 04/11/2025 3:23 PM CDT Comment:Right mid thyroid/is thmus nodule Narrative PATHOLOGY [facility] - 04/12/2025 1:31 PM CDT EPIC results best viewed via link to PDF [facility] [place] [address] Note to Patients: This report may contain [...] Gender: M : 1965 (Age: 59) Address: [facility] [address], [place] [address] Hospital #: [id number] Taken:04/11/2025 Received:04/11/2025 Reported: 04/12/2025 Patient Type: [facility] Inpatient Service: Cardiology Location: [address] Physician(s): Kalin Mcqueen MD FINAL DIAGNOSIS [...] results to be issued in an addendum. [facility]/04/12/2025 13:31 By this signature, I attest that the above diagnosis is based upon my personal examination of the slides(and/or other material indicated in the diagnosis). Juanito Perez DO Report Electronically Reviewed and Signed Out By Juanito Perez DO 04/12/2025 13:31:40 Carlos Rosario [facility]) Gross Description A. Thyroid, right isthmus [...] Surgical Pathology and Flow Cytometry Departments at [facility] as part of an ongoing quality compliance manager program and in compliance with federally mandated [...] Surgical Pathology and Flow Cytometry Departments of [facility]. It has not been cleared or approved by the [place] Food and Drug Administration. Araceli Romero NP LAB CYTOLOGY ORDERABLES Final Result PATHOLOGY [facility] 3rd Floor [place], [place] [phone] * Infection Prevention Shady auris PCR, surveillance Axilla/Groin (04/10/2025 12:30 PM CDT) Shady auris DNA Not Detected Not Detected [facility] Comment: Interpretive Data Testing performed by [facility] Molecular Infectious Disease Laboratory using the Lucas carlos 6800 Shady auris assay. This assay detects DNA from Shady auris using Real-Time PCR. This assay is laboratory developed and is not cleared by the [place] Food and Drug Administration. The performance characteristics have been verified by the [facility] Infectious Disease Laboratory. Axilla/Groin 04/10/2025 12:3 0 PM CDT 04/10/2025 1:28 PM CDT us Sathish Gongora MD LAB MICROBIOLOGY - GENERAL ORDER LINH Final Result [facility] One [facility] [place] [address] [facility] * Thyroid (04/10/2025 12:04 PM CDT) Anatomical Region Laterality Modality Head and Neck N/A Ultrasound 04/10/2025 1:39 PM CDT Impressions 04/10/2025 1:39 PM CDT 1. 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 us Elinor Barone NP IMG US PROCEDURES Final Re sult [...] AM CDT 04/10/2025 5:20 AM CDT Blake Pñea NURSE FIRST AID LAB BLOOD ORDERABLES Final Result [facility] Department [place] [address] * (ABNORMAL) aPTT (04/10/2025 4:33 AM CDT) aPTT 85(H) 28 - 38 sec Comment: Interpretive Data Heparin therapeutic range: 66.0 - 100.0 seconds. Range based on correlation with therapeutic heparin activity range of 0.3 - 0.7 Units/mL. Current interpretive data was last revised on 2023. Blood 04/10/2025 4:33 AM CDT 04/10/2025 5:29 AM CDT Narrative [facility] - 04/10/2025 5:39 AM CDT STAT PTT [...] peripherally (not from CVC). us Libia Suarez NURSE FIRST AID LAB BLOOD ORDERABLES Final Re sult [facility] One [facility] Department [place] [address] * (ABNORMAL) CBC without differential (04/10/2025 4:33 AM CDT) [facility] WBC 8.57 3.80 - 9.90 K/cumm Hgb 12.9(L) 13.0 - 17.5 g/dL [facility] Hct 40.1 38.9 - 50.3 % [facility] Plt 170 150 - 400 K/cumm [facility] MPV 11.7 9.1 - 12.3 fL [facility] RBC 4.83 4.30 - 5.80 M/cumm [facility] MCV 83.0 81.3 - 96.4 fL [facility] MCH 26.7(L) 27.1 - 33.3 pg [facility] MCHC 32.2(L) 32.3 - 35.7 g/dL [facility] RDW CV 15.5(H) 11.1 - 14.9 % [facility] RDW SD 46.6 35.7 - 48.1 fL [facility] NRBC abs 0.00 0.00 - 0.01 K/cumm [facility] Blood 04/10/2025 4:33 AM CDT 04/10/2025 5:21 AM CDT Blake Peña NURSE FIRST AID LAB BLOOD ORDERABLES Final Result [facility] One [facility] Department [place] [address] * Magnesium (04/10/2025 4:33 AM CDT) Pathologist [facility] Magnesium 2.0 1.4 - 2.5 mg/dL Blood 04/10/2025 4:33 AM CDT 04/10/2025 5:20 AM CDT Blake Peña NURSE FIRST AID LAB BLOOD ORDERABLES Final Result Performing Organization Address [facility] Co de Phone Number [facility] One [facility] Department [place] [address] * (ABNORMAL) Basic metabolic panel (04/10/2025 4:33 AM CDT) [facility] Sodium 139 135 - 145 mmol/L Potassium, pl 3.7 3.3 - 4.9 mmol/L [facility] Chloride 100 97 - 110 mmol/L [facility] CO2 27 22 - 32 mmol/L [facility] Anion gap 12 2 - 15 mmol/L [facility] BUN 28(H) 6 - 25 mg/dL [facility] Creatinine 1.49(H) 0.80 - 1.30 mg/dL [facility] Glucose 108 70 - 199 mg/dL [facility] Comment: Interpretive Data Fasting glucose >/= [...] 2022. Calcium 8.8 8.5 - 10.3 mg/dL [facility] Blood 04/10/2025 4:33 AM CDT 04/10/2025 5:20 AM CDT us Blake Peña NURSE FIRST AID LAB BLOOD ORDERABLES Final Result Performing Organization Address City/[facility]/ZIP Co de Phone Number [facility] Department [place] [address] * (ABNORMAL) Urinalysis reflex to microscopic and culture Urine (04/09/2025 5:07 PM CDT) Color, ur Straw Yellow Clarity, ur Clear Clear [facility] Specific gravity, ur 1.012 1.003 - 1.030 [facility] pH, urine 6.0 [facility] Comment: Interpretive Data U rine pH is affected by diet, medications, systemic acid-base disturbances, and renal tubular function. pH may affect urinary stone formation. For example, urine pH below 6.0 may help reduce the tendency for calcium phosphate stones and pH greater than 6.0 may reduce the tendency for uric acid stone formation. Source: [facility] Current Interpretive Data was last revised on 2017 Protein, ur ql Trace Negative [facility] Glucose, ur ql 3+(A) Negative [facility] Ketones, ur Negative Negative [facility] Bilirubin, ur Negative Negative [facility] Blood, ur Negative Negative [facility] Urobilinogen, ur <2.0 <2.0 mg/dL [facility] Nitrite, ur Negative Negative [facility] Leukocyte esterase, ur Negative Negative [facility] UA reflex comment Reflex conditions for microscopic UA and culture not met. [facility] Urine 04/09/2025 5:07 PM CDT 04/09/2025 5:41 PM CDT us Yaakov Lawrence MD PhD LAB MICROBIOLOGY - GENERAL ORDERABLES Final Result Performing Organization Address City/[facility]/ZIP Co de Phone Number [facility] [place] [address] * XR Chest PA Lateral 2 Views [...] antibodies except those against Dilma antigens. TRANSFUSION [id number] Blood 04/09/2025 3:23 PM CDT 04/09/2025 3:23 PM CDT Yaakov Lawrence MD PhD LAB BLOOD BANK WICHO T ORDERABLES Final Result [facility] One [facility] [place] [address] * CT Head WO Contrast (04/09/2025 3:18 [...] HLA Antibody Screen (04/09/2025 1:06 PM CDT) Pathologist [facility] HLA Antibody Screen by PRA Received Blood 04/09/2025 1:06 PM CDT 04/10/2025 9:32 AM CDT Yaakov Lawrence MD PhD LAB BLOOD ORDERABL ES Final Result Performing Organization Address City/[facility]/ZIP Co de Phone Number [facility] Department [place] [employer] [place] [address] * (ABNORMAL) Iron profile w/ IBC (04/09/2025 1:06 PM CDT) [facility] Iron 60 50 - 150 mcg/dL TIBC 397 250 - 400 mcg/dL [facility] Transferrin saturation 15(L) 20 - 50 % [facility] Blood 04/09/2025 1:06 PM CDT 04/09/2025 1:40 PM CDT Result [facility] Yaakov Lawrence MD PhD LAB BLOOD ORDERABL ES Final Result Performing Organization Address City/[facility]/ZIP Co de Phone Number [facility] [place] [employer] [place] [address] * HIV 1/2 Antibody plus p24 Antigen Blood (04/09/2025 1:06 PM CDT) [facility] HIV 1/2 ab + p24 ag Nonreactive [...] GENERAL ORDERABLES Final Result Performing Organization Address City/[facility] Co de Phone Number [facility] [employer] [place] [address] * (ABNORMAL) CMV, IgG Blood (04/09/2025 1:06 PM CDT) Pathologist [facility] CMV IgG Positive( A) Negative Comment: Interpretive [...] GENERAL ORDERABLES Final Result Performing Organization Address [facility] de Phone Number [facility] [employer] [place] [address] * Hepatitis C antibody Blood (04/09/2025 1:06 PM CDT) Pathologist [facility] Hep C Ab Nonreactive Nonreactive Comment:Antibodies to HCV no t detected. Does NOT exclude the possibility of recent exposure to HCV. Current interpretive data was last revised on 22 Blood 04/09/2025 1:06 PM CDT 04/09/2025 1:35 PM CDT Yaakov Lawrence MD PhD LAB MICROBIOLOGY - GENERAL ORDERABLES Final Result Performing Organization Address City/[facility] Co de Phone Number [facility] [employer] [place] [address] * (ABNORMAL) Priscilla-Lewis virus (EBV) antibody panel Blood (04/09/2025 1:06 PM CDT) [facility] EBV nuclear Ab Positive(A) Negative Comment:Indicates the presen ce of detectable IgG antibody to EBV Nuclear Antigen. EBV VCA IgG Positive(A) Negative [facility] Comment:Indicates the presen ce of antibody; 90% of the adult population will have been infected with EBV sometime in the past. EBV VCA IgM Negative Negative [facility] Comment:No detectable IgM an tibody to EBV-VCA. A negative result indicates no current infection with EBV. If clinical suspicion of acute EBV infection is present, testing should be repeated after one week. EBV interp Past Infection [facility] Blood 04/09/2025 1:06 PM CDT 04/09/2025 1:35 PM CDT Yaakov Lawrence MD PhD LAB MICROBIOLOGY - GENERAL ORDERABLES Final Result [facility] One [facility] [place] [address] * Cotinine level (04/09/2025 1:06 PM CDT) [facility] Nicotine <3.0 <3.0 ng/mL [place] [facility] Cotinine, quant, sr <3.0 <3.0 ng/mL [facility] Comment: ADDITIONAL INFORMATION This test was developed and its performance characteristics determined by [facility] in a manner consistent with CLIA requirements. This test has not been cleared or approved by the U.S. Food and Drug Administration. Test Performed by: [id number] [place] [address] Pot Room Supervisor: Milagros Henriquez Ph.D.; CLIA# [id number] Blood 04/09/2025 1:06 PM CDT 04/09/2025 1:39 PM CDT Result [facility] Yaakov Lawrence MD PhD LAB BLOOD ORDERABL ES Final Result DULCE MARIA [facility] Department [place] [address] [facility] * Hepatitis B core antibody, total Blood (04/09/2025 1:06 PM CDT) [facility] Hep B core IgG/IgM Nonreactive Nonreactive Blood 04/09/2025 1:06 PM CDT 04/09/2025 1:35 PM CDT Yaakov Lawrence MD PhD LAB MICROBIOLOGY - GENERAL ORDERABLES Final Result Performing Organization Address [facility] Co de Phone Number DULCE MARIA [facility] [employer] [place] [address] * Hepatitis C (HCV) RNA PCR, quantitative Blood (04/09/2025 1:06 PM CDT) [facility] HCV RNA result Not Detected [facility] Comment: The quantifiable range of this assay is 15 IU/mL to 100,000,000 IU/mL (1.18 log IU/mL to 8.00 log IU/mL). Testing was performed by the CARLOS 6800 HCV Test ([employer] Testing performed at [facility] Current Interpretive Data was last revised on 2021 Blood 04/09/2025 1:06 PM CDT 04/09/2025 1:22 PM CDT Yaakov Lawrence MD PhD LAB MICROBIOLOGY - GENERAL ORDERABLES Final Result Performing Organization Address City/[facility]/ZIP Co de Phone Number DULCE MARIA [facility] [employer] [place] [address] [facility] * HSV 2 IgG Antibody Blood (04/09/2025 [...] GENERAL ORDERABLES Final Result Performing Organization Address [facility] Co de Phone Number [facility] [employer] [place] [address] * (ABNORMAL) HSV 1 IgG Antibody Blood (04/09/2025 1:06 PM CDT) [facility] HSV 1 IgG Reactive( A) Nonreactive Comment: [...] GENERAL ORDERABLES Final Result Performing Organization Address City/[facility] Co de Phone Number [facility] [place] [address] * RPR Blood (04/09/2025 1:06 PM CDT) Pathologist [facility] RPR Nonreactive Nonreactive Blood 04/09/2025 1:06 PM CDT 04/09/2025 1:41 PM CDT Yaakov Lawrence MD PhD LAB MICROBIOLOGY - GENERAL ORDERABLES Final Result Performing Organization Address [facility] [place] [address] * Hepatitis B surface antibody (immune status) Blood (04/09/2025 1:06 PM CDT) HBsAb (immune status) Nonreactive Comment:This result is consi stent with a lack of immunity to Hepatitis B Virus when used in the setting of routine screening. Current interpretative data was last revised on 22 Blood 04/09/2025 1:06 PM CDT 04/09/2025 1:35 PM CDT us Yaakov Lawrence MD PhD LAB MICROBIOLOGY - GENERAL ORDERABLES Final Result Performing Organization Address [facility] [place] [address] * Hepatitis B Surface Antigen Blood (04/09/2025 1:06 PM CDT) HepBsAg Nonreactive Nonreactive Blood 04/09/2025 1:06 PM CDT 04/09/2025 1:35 PM CDT Yaakov Lawrence MD PhD LAB MICROBIOLOGY - GENERAL ORDERABLES Final Result Performing Organization Address City/[facility] [place] [address] * (ABNORMAL) Type and screen (04/09/2025 1:06 PM CDT) ABO Rh O Positive Poppy, indirect Positive(A) [facility] Blood 04/09/2025 1:06 PM CDT 04/09/2025 1:32 PM CDT Narrative [facility] - 04/09/2025 3:23 PM CDT Has the patient had Daratumumab or Isatuximab in the past 6 months?->Unknown Yaakov Lawrence MD PhD LAB BLOOD BANK WICHO T ORDERABLES Final Result Performing Organization Address [facility] Co de Phone Number [facility] [employer] [place] [address] * Varicella Zoster IgG antibody Blood (04/09/2025 1:06 PM CDT) Pathologist [facility] VZV IgG Reactive Reactive Comment:Reactive: Results treadwell ggest response to immunization or prior exposure to the virus. Blood 04/09/2025 1:06 PM CDT 04/09/2025 1:40 PM CDT Yaakov Lawrence MD PhD LAB MICROBIOLOGY - GENERAL ORDERABLES Final Result Performing Organization Address [facility] Co de Phone Number [facility] [employer] [place] [address] * TSH (04/09/2025 1:06 PM CDT) [facility] Thyroid Stimulating Hormone 1.35 0.30 - 4.20 mcIUnit/mL Blood 04/09/2025 1:06 PM CDT 04/09/2025 1:40 PM CDT Yaakov Lawrence MD PhD LAB BLOOD ORDERABL ES Final Result Performing Organization Address [facility] de Phone Number [facility] [employer] [place] [address] * PSA diagnostic (04/09/2025 1:06 PM CDT) Pathologist [facility] PSA-Total 0.41 <=5.40 ng/mL Comment: Interpretive Data [...] Performing Organization Address [facility] de Phone Number [facility] [employer] [place] [address] * (ABNORMAL) Hemoglobin A1c (04/09/2025 1:06 PM CDT) Pathologist [facility] Hgb A1C 7.1(H) 4.0 - 5.6 % Estimated Average Glucose 157 mg/dL [facility] Comment: The ADA recommends reporting an estimated Average Glucose (eAG) with all Hemoglobin A1c results using the equation derived from a study of 507 normal and diabetic adults. Minority populations were underrepresented and children were not included. (Diabetes Care 2020; 43(S1): S66-S76). The eAG is not equivalent to a fasting glucose. Blood 04/09/2025 1:06 PM CDT 04/09/2025 1:39 PM CDT Result [facility] Yaakov Lawrence MD PhD LAB BLOOD ORDERABL ES Final Result Performing Organization Address [facility] de Phone Number [facility] [employer] [place] [address] * Ferritin (04/09/2025 1:06 PM CDT) Pathologist [facility] Ferritin 43 30 - 400 ng/mL Blood 04/09/2025 1:06 PM CDT 04/09/2025 1:40 PM CDT Yaakov Lawrence MD PhD LAB BLOOD ORDERABL ES Final Result Performing Organization Address [facility] Phone Number DULCE MARIA [facility] One [facility] [place] [address] * Lipid panel (04/09/2025 1:06 PM CDT) [...] 2018. Triglycerides 76 <=149 mg/dL DULCE MARIA [facility] Comment: Interpretive Data Ages < or [...] revised on 2018. HDL 45 >=40 mg/dL [facility] Comment: Interpretive Data Ages < or [...] on 2018. LDL, calculated 81 <=129 mg/dL [facility] Comment: Interpretive Data Ages < or [...] 3. Cristino Ruff et al. MARYANNE Cardiol. 2020 March 21;5(5):540-548. doi: 10.1001/jamacardio.2020.0013 Current Interpretive Data was last revised on 2024. Non-HDL Cholesterol 96 mg/dL [facility] Comment: Interpretive Data Ages < or [...] last revised on 2018. Chol/HDL ratio 3 [facility] Blood 04/09/2025 1:06 PM CDT 04/09/2025 1:40 PM CDT us Yaakov Lawrence MD PhD LAB BLOOD ORDERABL ES Final Result [facility] One [facility] [place] [address] * HLA Antibody Screen by PRA or SAB per Schedule (Class I and Class II) (04/09/2025 12:59 PM CDT) Blood 04/09/2025 12:5 9 PM CDT Narrative [facility] - OBSTETRICS GYNECOLOGY PHYSICIAN Sample received in lab. Single Antigen Antibody Screen and PRA Screen ordered. Yaaokv Lawrence MD PhD LAB BLOOD ORDERABL ES Final Result [facility] * HLA Antibody Screen - PRA [...] a method developed and validated by the [facility] HLA laboratory based on an FDA- approved IVD kit (LABScreen PRA, [employer], [place], [place]). Interpretive comments: The percentage of beads with MFI > 750 is reported, which indicates the percentage of donor population estimated to be incompatible with the patient tested. PRA > 0% is consistent with alloimmunization to HLA. Testing performed at the [facility] Laboratory, [address] [place] [address], 5th floor, [place], [address]. [facility] # [id number]. Myrna Pendleton, Ph.D., Phlebotomist Lab Assistant, HLA Laboratory Zach Bermudez M.D., Ph.D., Field Service Engineer, HLA Laboratory Dona Cota, Ph.D., CLIA Field Service Engineer, [facility] Clinical Laboratories Current methodology and interpretive [...] a method developed and validated by the [facility] HLA laboratory based on an FDA-approved IVD kit (LABScreen Single-Antigen, [place], [place], [place]). All patient serum samples are pretreated with EDTA before the screen to prevent complement interference. Additional serum treatments, such as adsorption and DTT treatment, may be performed as indicated. Interpretive comments: Low risk: MFI [id number]. Moderate risk: MFI [id number]. Increased risk: MFI >/= 5000. The presence [...] antigens to avoid. Testing performed at the [facility], [facility], [address]th floor, [place], [address]. CLIA # [id number]. Myrna Pendleton, Ph.D., Phlebotomist Lab Assistant, HLA Laboratory Zach Bermudez M.D., Ph.D., Field Service Engineer, HLA Laboratory Dona Cota, Ph.D., CLIA Field Service Engineer, [facility] Laboratories Current methodology and interpretive comments last revised on 12/16/2022. Yaakov Lawrence MD PhD LAB BLOOD ORDERABL ES Final Result [facility] * Pulmonary Function Test -[facility] Main [place]; Standard; Spirometry, Spirometry w/bronchodilator, DLCO and Lung Volumes (04/09/2025 11:50 AM CDT) FVC PRE 3.12 L [facility] FVC %PRE PRED 66 % [facility] FVC POST 3.16 L [facility] FVC %POST PRED 67 % [facility] FEV1 PRE 2.45 L [facility] FEV1 %PRE PRED 68 % [facility] FEV1 POST 2.66 L [facility] FEV1 %POST PRED 74 % [facility] FEV1/FVC PRE 78.6 % [facility] FEV1/FVC POST 84.2 % [facility] FRC PL PRE 3.[address] [facility] FRC PL %PRE PRED 80 % [facility] RV PRE 1.88 L [facility] RV %PRE PRED 79 % [facility] TLC PRE 5.18 L [facility] TLC %PRE PRED 69 % [facility] DLCO PRE 20.2 ml/min/mmH g [facility] DLCO %PRE PRED 69 % [facility] Anatomical Region Laterality Modality PFT 04/09/2025 11:3 0 AM CDT Narrative 04/09/2025 12:26 PM CDT Patient Location:->[facility] Standard:->Spirometry, Spirometry w/bronchodilator, DLCO and Lung Volumes [...] <89%. Starting on November of 2024 the [facility] Pulmonary Function Laboratory utilizes race neutral GLI Global normative equations. us Blake Peña NURSE FIRST AID PFT ORDERABLES Final Resu lt * US Carotids Duplex Bilateral (04/09/2025 10:37 AM CDT) Anatomical Region Laterality Modality Vascular Bilateral Ultrasound 04/09/2025 9:16 AM CDT Narrative 04/09/2025 9:09 PM CDT [facility] - Department of Vascular Surgery, Vascular Laboratory [address] [place] [address] Carotid Duplex Ultrasound Report Patient Name: GOSIA ZUNIGA : 1965 (59y 11m) Study Date: 04/09/2025 9:16:16 AM Gender: M Tech: MICHAEL Location: [id number] Ref Provider: BLAKE PEÑA Quality: Adequate Order [...] LT VERT PSV 51 cm/sec FINDINGS: Performing Fishing Floats Assembler: Erlin Luwdig RVT. Rt Internal Carotid Artery: The plaque [...] Procedure Note Imtiaz Rodriguez MD - 04/09/2025 [facility] - Department of Vascular Surgery,Vascular Laboratory [address] [place] [address] Carotid Duplex Ultrasound Report Patient Name: GOSIA ZUNIGA : 1965 (59y 11m) Study Date: 04/09/2025 9:16:16 AM Gender: M Tech: MICHAEL Location: [id number] Ref Provider: BLAKE PEÑA Quality: Adequate Order [...] LT VERT PSV 51 cm/sec FINDINGS: Performing Fishing Floats Assembler: Erlin Ludwig RVT. Rt Internal Carotid Artery: [...] 04/09/2025 8:15:13 PM CDT us Blake Peña NURSE FIRST AID IMG US PROCEDURES Final Re sult * US SOURAV (04/09/2025 10:12 AM CDT) Anatomical Region Laterality Modality Vascular N/A Ultrasound 04/09/2025 9:12 AM CDT Narrative 04/09/2025 11:05 AM CDT [facility] - Department of Vascular Surgery, Vascular Laboratory [address] [place] [address] Lower Extremity Arterial Doppler Report Patient Name: GOSIA ZUNIGA : 1965 Study Date: 04/09/2025 9:12:00 AM Gender: M Tech: Kaylah Boswell Monique, [facility] Location: [id number] Ref Provider: BLAKE PEÑA Quality: Adequate Order Provider: BLAKE PEÑA PROCEDURES: Arterial Report: Ankle - Brachial Index Doppler exam. INDICATIONS: Encounter for Other Preprocedural Exam. MEASUREMENTS: Right Value Units Left Value Units Rt Brachial Pressure 93 mmHg Lt Brachial Pressure 99 mmHg Rt GROUP ART SUPERVISOR Pressure 126 mmHg Lt GROUP ART SUPERVISOR Pressure 113 mmHg Rt DPA Pressure 110 mmHg Lt DPA Pressure 110 mmHg Rt 1st Digit Pressure 109 mmHg Lt 1st Digit Pressure 80 mmHg Rt PT SOURAV Resting 1.27 Lt PT SOURAV Resting 1.14 Rt AT SOURAV Resting 1.11 Lt AT SOURAV Resting 1.11 Rt Digit/Arm Index 1.1 Lt Digit/Arm Index 0.81 Right Value Units Left Value Units FINDINGS: Performing Fishing Floats Assembler: Kaylah Boswell RDMS, RVT. Right Posterior Tibial [...] Imtiaz Rodriguez MD - 04/09/2025 [facility] - Department of Vascular Surgery,Vascular Laboratory [address] [place] [address] Lower Extremity Arterial Doppler Report Patient Name: GOSIA ZUNIGA : 1965 Study Date: 04/09/2025 9:12:00 AM Gender: M Tech: Kaylah Boswell RVT, RDMS Location: [id number] [facility] Provider: BLAKE PEÑA Quality: Adequate Order Provider: BLAKE PEÑA PROCEDURES: Arterial Report: Ankle - Brachial Index Doppler exam. INDICATIONS: Encounter for Other Preprocedural Exam. MEASUREMENTS: Right Value Units Left Value Units Rt Brachial Pressure 93 mmHg Lt Brachial Pressure 99 mmHg Rt GROUP ART SUPERVISOR Pressure 126 mmHg Lt GROUP ART SUPERVISOR Pressure 113 mmHg Rt DPA Pressure 110 mmHg Lt DPA Pressure 110 mmHg Rt 1st Digit Pressure 109 mmHg Lt 1st Digit Pressure 80 mmHg Rt PT SOURAV Resting 1.27 Lt PT SOURAV Resting 1.14 Rt AT SOURAV Resting 1.11 Lt AT SOURAV Resting 1.11 Rt Digit/Arm Index 1.1 Lt Digit/Arm Index 0.81 Right Value Units Left Value Units FINDINGS: Performing Fishing Floats Assembler: Kaylah Boswell RDMS, RVT. Right Posterior Tibial [...] above. Electronically Signed By: Imtiaz Rodriguez MD [facility] 04/09/2025 10:27:28 AM CDT us Blake Peña NURSE FIRST AID IMG US PROCEDURES Final Re sult * (ABNORMAL) aPTT (04/09/2025 8:11 AM CDT) aPTT 89(H) 28 - 38 sec Comment: Interpretive Data Heparin therapeutic range: 66.0 - 100.0 seconds. Range based on correlation with therapeutic heparin activity range of 0.3 - 0.7 Units/mL. Current interpretive data was last revised on 2023. Blood 04/09/2025 8:11 AM CDT 04/09/2025 9:01 AM CDT [place] ARANDA - 04/09/2025 9:23 AM CDT STAT [...] peripherally (not from CVC). us Libia Suarez NURSE FIRST AID LAB BLOOD ORDERABLES Final Re sult DUL[facility] MARIA [facility] One [facility] [place] [address] * eGFR (04/09/2025 1:45 AM CDT) eGFR [...] CDT 04/09/2025 2:14 AM CDT Blake Peña NURSE FIRST AID LAB BLOOD ORDERABLES Final Result Performing Organization Address [facility] Co de Phone Number DULCE MARIA ARANDA One [facility] [place] [address] * (ABNORMAL) aPTT (04/09/2025 1:45 AM CDT) Pathologist [facility] aPTT 87(H) 28 - 38 sec Comment: Interpretive Data Heparin therapeutic range: 66.0 - 100.0 seconds. Range based on correlation with therapeutic heparin activity range of 0.3 - 0.7 Units/mL. Current interpretive data was last revised on 2023. Blood 04/09/2025 1:45 AM CDT 04/09/2025 2:46 AM CDT Narrative [facility] - 04/09/2025 2:56 AM CDT STAT PTT [...] drawn peripherally (not from CVC). Libia Suarez NURSE FIRST AID LAB BLOOD ORDERABLES Final Re sult DULCE MARIA [facility] Department [place] [address] * (ABNORMAL) CBC without differential (04/09/2025 1:45 AM CDT) Pathologist [facility] WBC 10.44(H) 3.80 - 9.90 K/cumm Hgb 13.8 13.0 - 17.5 g/dL [facility] Hct 42.5 38.9 - 50.3 % [facility] Plt 180 150 - 400 K/cumm [facility] MPV 11.3 9.1 - 12.3 fL [facility] RBC 5.13 4.30 - 5.80 M/cumm [facility] MCV 82.8 81.3 - 96.4 fL [facility] MCH 26.9(L) 27.1 - 33.3 pg [facility] MCHC 32.5 32.3 - 35.7 g/dL [facility] RDW CV 15.6(H) 11.1 - 14.9 % [facility] RDW SD 46.6 35.7 - 48.1 fL [facility] NRBC abs 0.00 0.00 - 0.01 K/cumm [facility] Blood 04/09/2025 1:45 AM CDT 04/09/2025 2:14 AM CDT Blake Peña NURSE FIRST AID LAB BLOOD ORDERABLES Final Result Performing Organization Address [facility] Co de Phone Number [facility] Department [place] [employer] [place] [address] * Magnesium (04/09/2025 1:45 AM CDT) [facility] Magnesium 2.2 1.4 - 2.5 mg/dL Blood 04/09/2025 1:45 AM CDT 04/09/2025 2:14 AM CDT Blake Peña NURSE FIRST AID LAB BLOOD ORDERABLES Final Result Performing Organization Address [facility] Co de Phone Number [facility] Department [place] [employer] [place] [address] * (ABNORMAL) Basic metabolic panel (04/09/2025 1:45 AM CDT) [facility] Sodium 140 135 - 145 mmol/L Potassium, pl 3.9 3.3 - 4.9 mmol/L [facility] Chloride 104 97 - 110 mmol/L [facility] CO2 26 22 - 32 mmol/L [facility] Anion gap 10 2 - 15 mmol/L [facility] BUN 28(H) 6 - 25 mg/dL [facility] Creatinine 1.35(H) 0.80 - 1.30 mg/dL [facility] Glucose 118 70 - 199 mg/dL [facility] Comment: Interpretive Data Fasting glucose >/= [...] 2022. Calcium 9.6 8.5 - 10.3 mg/dL [facility] Blood 04/09/2025 1:45 AM CDT 04/09/2025 2:14 AM CDT Blake Peña NURSE FIRST AID LAB BLOOD ORDERABLES Final Result [facility] One [facility] [place] [address] * CT Chest Abdomen Pelvis WO Contrast [...] Dmitry Armas MD, PHD us Blake Peña NURSE FIRST AID IMG CT PROCEDURES Final Re sult * (ABNORMAL) eGFR (04/08/2025 6:40 PM CDT) Pathologist [facility] eGFR 53(L) >=60 mL/min/1. 73 m2 Comment: [...] CDT 04/08/2025 7:30 PM CDT us Blake Peña NURSE FIRST AID LAB BLOOD ORDERABLES Final Result [facility] [place] [address] * (ABNORMAL) Differential, auto (04/08/2025 6:40 PM CDT) Neutrophil abs 7.32(H) 1.50 - 6.50 K/cumm Imm gran abs 0.04 0.00 - 0.10 K/cumm [facility] Lymphocyte abs 0.92 0.80 - 3.30 K/cumm [facility] Monocyte abs 0.81(H) 0.20 - 0.80 K/cumm [facility] Eosinophil abs 0.20 0.00 - 0.50 K/cumm [facility] Basophil abs 0.04 0.00 - 0.10 K/cumm [facility] Neutrophil pct 78.5 % [facility] Comment: Interpretive Data Percent cell count reference ranges are not reported, since discordance with absolute values may lead to misinterpretation of CBC data. Current Interpretive Data was last revised on 2018. Imm gran pct 0.4 % [facility] Comment: Interpretive Data Percent cell count reference ranges are not reported, since discordance with absolute values may lead to misinterpretation of CBC data. Current Interpretive Data was last revised on 2018. Lymphocyte pct 9.9 % [facility] Comment: Interpretive Data Percent cell count reference ranges are not reported, since discordance with absolute values may lead to misinterpretation of CBC data. Current Interpretive Data was last revised on 2018. Monocyte pct 8.7 % [facility] Comment: Interpretive Data Percent cell count reference ranges are not reported, since discordance with absolute values may lead to misinterpretation of CBC data. Current Interpretive Data was last revised on 2018. Eosinophil pct 2.1 % [facility] Comment: Interpretive Data Percent cell count reference ranges are not reported, since discordance with absolute values may lead to misinterpretation of CBC data. Current Interpretive Data was last revised on 2018. Basophil pct 0.4 % [facility] Comment: Interpretive Data Percent cell count reference ranges are not reported, since discordance with absolute values may lead to misinterpretation of CBC data. Current Interpretive Data was last revised on 2018. Blood 04/08/2025 6:40 PM CDT 04/08/2025 7:33 PM CDT us Blake Peña NURSE FIRST AID LAB BLOOD ORDERABLES Final Result DULCE MARIA MANOJ One [facility] [place] [address] * (ABNORMAL) Pro B-type natriuretic peptide (04/08/2025 [...] as advanced age. - References: 1. Abelardo JL et.al. Eur Heart J. 2006:27:330-337. 2. Sujey RW, Antonio AM. J. AM Monika Cardiol: Cardiovasc Imag. 2009;2: 216- 225. Interpretive Data Last Revised Date: 2018. Blood 04/08/2025 6:40 PM CDT 04/08/2025 7:33 PM CDT us Blake Peña NP LAB BLOOD ORDERABLES Final Result [facility] One [facility] Department [place] [address] * (ABNORMAL) CBC with auto differential (04/08/2025 6:40 PM CDT) Pathologist [facility] WBC 9.33 3.80 - 9.90 K/cumm Hgb 14.5 13.0 - 17.5 g/dL [facility] Hct 46.4 38.9 - 50.3 % [facility] Plt 218 150 - 400 K/cumm [facility] MPV 11.8 9.1 - 12.3 fL [facility] RBC 5.50 4.30 - 5.80 M/cumm [facility] MCV 84.4 81.3 - 96.4 fL [facility] MCH 26.4(L) 27.1 - 33.3 pg [facility] MCHC 31.3(L) 32.3 - 35.7 g/dL [facility] RDW CV 15.5(H) 11.1 - 14.9 % [facility] RDW SD 46.8 35.7 - 48.1 fL [facility] NRBC abs 0.00 0.00 - 0.01 K/cumm [facility] Blood 04/08/2025 6:40 PM CDT 04/08/2025 7:33 PM CDT us Blake Peña NP LAB BLOOD ORDERABLES Final Result Performing Organization Address [facility] Co de Phone Number [facility] [place] [address] * aPTT (04/08/2025 6:40 PM CDT) [facility] aPTT 34 28 - 38 sec Comment: Interpretive Data Heparin therapeutic range: 66.0 - 100.0 seconds. Range based on correlation with therapeutic heparin activity range of 0.3 - 0.7 Units/mL. Current interpretive data was last revised on 2023. Blood 04/08/2025 6:40 PM CDT 04/08/2025 7:31 PM CDT us Blake Peña NURSE FIRST AID LAB BLOOD ORDERABLES Final Result Performing Organization Address [facility] Co de Phone Number [facility] [place] [address] * (ABNORMAL) Protime-INR (04/08/2025 6:40 PM CDT) Pathologist [facility] PT 13.4(H) 9.7 - 13.0 sec INR 1.24(H) 0.90 - 1.20 [facility] Comment: Interpretive data Oral anticoagulant therapeutic ranges: Venous thromboembolism prophylaxis or treatment: 2.0-3.0 CARDIOLOGY Standard range: 2.0-3.0 High-intensity range: 2.5-3.5 Refer to indication-specific guidelines for appropriate target ranges for prosthetic heart valve replacement. Current interpretive data was last revised on 2019. Blood 04/08/2025 6:40 PM CDT 04/08/2025 7:31 PM CDT Blake Peña NURSE FIRST AID LAB BLOOD ORDERABLES Final Result Performing Organization Address [facility] Co de Phone Number [facility] [place] [address] * Magnesium (04/08/2025 6:40 PM CDT) [facility] Magnesium 2.3 1.4 - 2.5 mg/dL Blood 04/08/2025 6:40 PM CDT 04/08/2025 7:33 PM CDT Blake Peña NURSE FIRST AID LAB BLOOD ORDERABLES Final Result Performing Organization Address [facility] de Phone Number [facility] [place] [address] * Digoxin level (04/08/2025 6:40 PM CDT) [facility] Digoxin 0.5 0.5 - 1.2 ng/mL Comment: Interpretive data The therapeutic range for digoxin varies by indication: Heart failure: 0.5 to 0.8 ng/mL Atrial fibrillation: less than 1.2 ng/mL Toxicity: >2.4. Normal or low digoxin does not rule out toxicity. Current interpretive data was last revised on 2024. Blood 04/08/2025 6:40 PM CDT 04/08/2025 7:33 PM CDT us Elinor Barone NP LAB BLOOD ORDERABLES Final Result [facility] One [facility] Department [place] [address] * (ABNORMAL) Comprehensive metabolic panel (04/08/2025 6:40 PM CDT) Sodium 138 135 - 145 mmol/L Potassium, pl 4.0 3.3 - 4.9 mmol/L [facility] Chloride 99 97 - 110 mmol/L [facility] CO2 28 22 - 32 mmol/L [facility] Anion gap 11 2 - 15 mmol/L [facility] BUN 25 6 - 25 mg/dL [facility] Creatinine 1.49(H) 0.80 - 1.30 mg/dL [facility] Glucose 109 70 - 199 mg/dL [facility] Comment: Interpretive Data Fasting glucose >/= [...] Calcium 9.9 8.5 - 10.3 mg/dL [facility] Bilirubin, total 0.8 0.1 - 1.2 mg/dL [facility] Protein, pl 6.3(L) 6.5 - 8.5 g/dL [facility] Albumin 3.9 3.5 - 5.0 g/dL [facility] Alk phos 214(H) 40 - 130 Units/L [facility] ALT 26 7 - 55 Units/L [facility] AST 24 10 - 50 Units/L [facility] Blood 04/08/2025 6:40 PM CDT 04/08/2025 7:30 PM CDT us Blake Peña NURSE FIRST AID LAB BLOOD ORDERABLES Final Result DULCE MARIA BJBrittney One [facility] Department [place] [address] * RIGHT HEART CATH (04/08/2025 9:27 AM CDT) Anatomical Region Laterality Modality X-Ray Angiograph y Narrative 04/08/2025 10:10 AM CDT [facility] CATHETERIZATION LAB REPORT PROCEDURE: Right heart [...] the usual sterile fashion. I provided direct [id number] monitoring of conscious sedation which was administered by an independent trained nurse using Fentanyl 25 mcg and Midazolam 1 mg. Sedation time 17 min. Local anesthesia with 1% lidocaine was used. Venous access was obtained in theRight Internal Jugular vein using modified Seldinger technique and micropuncture approach. A 7 Guyanese sheath was secured into place. Right heart catheterization was performed with a 7 Gu[place]ese TD [place] Jayne catheter. The catheter was advanced sequentially [...] Medicine Advanced Heart Failure and Cardiac Transplantation Result [facility] Yaakov Lawrence MD PhD CV CARDIAC CATH NM OCEDURES Final Result * (ABNORMAL) POCT oxyhemoglobin (04/08/2025 9:21 AM CDT) [employer]EL[employer] Oxyhemoglobin 61.9(L) >=65.0 % [facility] Hemoglobin 13.7 13.0 - 17.5 g/dL [facility] PYTHON DJANGO DEVELOPER O2 content 11.8(L) 15.0 - 22.0 Vol % [facility] Anatomic Site aPOC Pulm Artery [facility] Blood 04/08/2025 9:21 AM CDT 04/08/2025 9:21 AM CDT Yaakov Lawrence MD PhD LAB POCT ORDERABLE S - DEVICE Final Result Performing Organization Address [facility] Co de Phone Number [facility] [place] [address] * (ABNORMAL) POCT oxyhemoglobin (04/08/2025 9:20 AM CDT) [facility] PYTHON DJANGO DEVELOPER Oxyhemoglobin 61.7(L) >=65.0 % [employer] Hemoglobin 14.1 13.0 - 17.5 g/dL [facility] PYTHON DJANGO DEVELOPER O2 content 12.1(L) 15.0 - 22.0 Vol % [facility] Anatomic Site aPOC Pulm Artery [facility] Blood 04/08/2025 9:20 AM CDT 04/08/2025 9:20 AM CDT Yaakov Lawrence MD PhD LAB POCT ORDERABLE S - DEVICE Final Result Performing Organization Address [facility] de Phone Number [facility] Department [place] [address] * ECG 12 lead (04/08/2025 8:19 AM CDT) [facility] Ventricular Rate EKG/Min 95 BPM [facility] Atrial Rate 95 BPM [facility] NM-Interval (MSEC) 222 ms [facility] QRS-Interval (MSEC) 100 ms [facility] QT-Interval (MSEC) 374 ms [facility] QTc 469 ms [facility] P [place] 90 degrees [facility] R [place] -89 degrees [facility] T [place] 81 degrees [facility] Diagnosis Sinus rhythm with 1st degree A-V block Left axis deviation Low voltage QRS Incomplete right bundle branch block Inferior infarct , age undetermined Cannot rule out Anteroseptal infarct , age undetermined Abnormal ECG When compared with ECG of 28-NOV-2023 03:00, PREVIOUS ECG IS PRESENT Confirmed by MERARY ZEPEDA M.D ([id number]) on 04/08/2025 11:04:08 AM [facility] 04/08/2025 8:19 AM CDT 04/08/2025 11:04 AM CDT us Jessica Snow MD PhD ECG ORDERABLES Final Result [facility] * (ABNORMAL) eGFR (04/02/2025 9:42 AM [...] BLOOD ORDER LINH Final Result DULCE MARIA [facility] One [facility] Department [place] [address] * (ABNORMAL) Differential, auto (04/02/2025 9:42 AM CDT) Neutrophil abs 5.50 1.50 - 6.50 K/cumm Comment:Testing performed by : [facility], [facility] [place] [address] Lymphocyte abs 0.71(L) 0.80 - 3.30 K/cumm [facility] Comment:Testing performed by : [facility], [address] [place] [phone] Monocyte abs 0.62 0.20 - 0.80 K/cumm [facility] Comment:Testing performed by : [facility], [address] [place], [place] [id number] Eosinophil abs 0.05 0.00 - 0.50 K/cumm [facility] Comment:Testing performed by : [facility], [address] [place] [address] Basophil abs 0.04 0.00 - 0.10 K/cumm [facility] Comment:Testing performed by : [facility], [address] [place] [address] Neutrophil pct 79.5 % [facility] Comment: Interpretive Data Percent cell count reference ranges are not reported, since discordance with absolute values may lead to misinterpretation of CBC data. Current Interpretive Data was last revised on 2018. Testing performed by: [facility], [address] [place] [phone] Lymphocyte pct 10.3 % [facility] Comment: Interpretive Data Percent cell count reference ranges are not reported, since discordance with absolute values may lead to misinterpretation of CBC data. Current Interpretive Data was last revised on 2018. Testing performed by: [facility], [address] [place] [address] Monocyte pct 8.9 % [facility] Comment: Interpretive Data Percent cell count reference ranges are not reported, since discordance with absolute values may lead to misinterpretation of CBC data. Current Interpretive Data was last revised on 2018. Testing performed by: [facility], [address] [place] [phone] Eosinophil pct 0.7 % [facility] Comment: Interpretive Data Percent cell count reference ranges are not reported, since discordance with absolute values may lead to misinterpretation of CBC data. Current Interpretive Data was last revised on 2018. Testing performed by: [facility], [address] [place] [address] Basophil pct 0.6 % DULCE MARIA [facility] Comment: Interpretive Data Percent cell count reference ranges are not reported, since discordance with absolute values may lead to misinterpretation of CBC data. Current Interpretive Data was last revised on 2018. Testing performed by: [facility], [address] [place] [phone] Blood 04/02/2025 9:42 AM CDT 04/02/2025 9:56 AM CDT Justin Flowers MD LAB BLOOD ORDER LINH Final Result DULCE MARIA ARANDA One [facility] Department [place] [address] * Immunoglobulin free light chains (04/02/2025 9:42 AM CDT) Onida/Lambda ratio [facility] 0.71 0.26 - 1.65 Comment: Interpretive Data The Binding Site FreeLite assay procedure was used. Results from different manufacturers or methods may not be comparable. Serial testing should be performed using the same methods and instrumentation. Current Interpretive Data was last revised on 2024. [place] free light chain [facility] 0.45 0.33 - 1.94 mg/dL [facility] Comment: Interpretive Data The Binding Site FreeLite assay procedure was used. Results from different manufacturers or methods may not be comparable. Serial testing should be performed using the same methods and instrumentation. Current Interpretive Data was last revised on 2024. Lambda free light chain BJ 0.63 0.57 - 2.63 mg/dL [facility] Comment: Interpretive Data The Binding Site FreeLite assay procedure was used. Results from different manufacturers or methods may not be comparable. Serial testing should be performed using the same methods and instrumentation. Current Interpretive Data was last revised on 2024. Blood 04/02/2025 9:42 AM CDT 04/02/2025 11:33 AM CDT Justin Flowers MD LAB BLOOD ORDER LINH Final Result Performing Organization Address City/State/[facility] Co ma Phone Number DULCE MARIA Garcia [facility] Department [place] [address] * (ABNORMAL) Pro B-type natriuretic peptide (04/02/2025 [...] BLOOD ORDER LINH Final Result DULCE MARIA [facility] One [facility] Department [place] [address] * (ABNORMAL) CBC with auto differential (04/02/2025 9:42 AM CDT) WBC 6.92 3.80 - 9.90 K/cumm Comment:Testing performed by : [facility], [address] [place] [address] Hgb 14.0 13.0 - 17.5 g/dL DULCE MARIA ARANDA Comment:Testing performed by : [facility], [address] [place] [address] Hct 43.2 38.9 - 50.3 % DULCE MARIA ARANDA Comment:Testing performed by : [facility], [address] [place] [address] Plt 223 150 - 400 K/cumm DULCE MARIA ARANDA Comment:Testing performed by : [facility], [address] [place] [address] MPV 8.9 6.8 - 10.4 fL DULCE MARIA [facility] Comment:Testing performed by : [facility], [address] [place] [address] RBC 5.22 4.30 - 5.80 M/cumm DULCE MARIA ARANDA Comment:Testing performed by : [facility], [address] [place] [address] MCV 82.8 81.3 - 96.4 fL [facility] Comment:Testing performed by : [facility], [address] [place] [address] MCH 26.8(L) 27.1 - 33.3 pg [facility] AR[facility] Comment:Testing performed by : [facility], [address] [place] [address] MCHC 32.4 32.3 - 35.7 g/dL [facility]ER[facility] ARANDA Comment:Testing performed by : [facility], [address] [place] [address] RDW CV 15.7(H) 11.1 - 14.9 % [facility] Comment:Testing performed by : [facility], [address] [place] [phone] NRBC abs 0.00 0.00 - 0.01 K/cumm [facility] Comment:Testing performed by : [facility], [address] [place] [phone] Blood 04/02/2025 9:42 AM CDT 04/02/2025 9:56 AM CDT Justin Flowers MD LAB BLOOD ORDER LINH Final Result Performing Organization Address [facility] de Phone Number [facility] [place] [address] * aPTT (04/02/2025 9:42 AM CDT) aPTT [...] ORDER LINH Final Result Performing Organization Address [facility] de Phone Number [facility] [place] [address] * (ABNORMAL) Protime-INR (04/02/2025 9:42 AM CDT) PT 19.8(H) 9.7 - 13.0 sec INR 1.81(H) 0.90 - 1.20 [facility] Comment: Interpretive data Oral anticoagulant therapeutic ranges: Venous thromboembolism prophylaxis or treatment: 2.0-3.0 CARDIOLOGY Standard range: 2.0-3.0 High-intensity range: 2.5-3.5 Refer to indication-specific guidelines for appropriate target ranges for prosthetic heart valve replacement. Current interpretive data was last revised on 2019. Blood 04/02/2025 9:42 AM CDT 04/02/2025 10:54 AM CDT Justin Flowers MD LAB BLOOD ORDER LINH Final Result Performing Organization Address City/[facility] Co de Phone Number [facility] Department [place] [address] * Uric acid (04/02/2025 9:42 AM CDT) [facility] Uric acid 7.5 3.0 - 8.0 mg/dL Blood 04/02/2025 9:42 AM CDT 04/02/2025 10:02 AM CDT Justin Flowers MD LAB BLOOD ORDER LINH Final Result Performing Organization Address [facility] de Phone Number [facility] [place] [address] * (ABNORMAL) Protein electrophoresis with reflex, serum with interpretation (04/02/2025 9:42 AM CDT) Protein, sr 5.9(L) 6.2 - 8.2 g/dL Albumin 3.8 3.2 - 5.0 g/dL [facility] Alpha-1 globulin 0.4 0.2 - 0.4 g/dL [facility] Alpha-2 globulin 0.8 0.5 - 1.0 g/dL [facility] Beta-1 globulin 0.4 0.3 - 0.6 g/dL [facility] Beta-2 globulin 0.2 0.2 - 0.6 g/dL [facility] Gamma globulin 0.3(L) 0.5 - 1.7 g/dL [facility] Rstr Pk Gamma 0.1(H) 0.0 - 0.0 g/dL [facility] SPEP interp Please see comment [facility] Comment: Abnormal restricted peak in gamma region Decreased gamma globulins Electrophoretic pattern appears similar to previous sample 02-07-25 Reviewed and signed by Merary Quintana MD, PhD 04/03/2025 Blood 04/02/2025 9:42 AM CDT 04/02/2025 11:33 AM CDT Justin Flowers MD LAB BLOOD ORDER LINH Final Result Performing Organization Address City/[facility] [place] [address] * Protein, total (04/02/2025 9:42 AM CDT) [facility] Protein, pl See Comment 6.5 - 8.5 g/dL Comment:Credited, duplicate test. Blood 04/02/2025 9:42 AM CDT 04/02/2025 10:02 AM CDT Justin Flowers MD LAB BLOOD ORDER LINH Final Result Performing Organization Address [facility] Co de Phone Number [facility] [place] [address] * Lactate dehydrogenase (LD) (04/02/2025 9:42 AM CDT) [facility] Lactate dehydrogenase (LDH) 183 100 - 250 Units/L Blood 04/02/2025 9:42 AM CDT 04/02/2025 10:02 AM CDT Justin Flowers MD LAB BLOOD ORDER LINH Final Result Performing Organization Address City/[facility] Co de Phone Number [facility] [place] [address] * (ABNORMAL) IgA (04/02/2025 9:42 AM CDT) Immunoglobulin A <50(L) 70 - 400 mg/dL Blood 04/02/2025 9:42 AM CDT 04/02/2025 10:54 AM CDT Justin Flowers MD LAB BLOOD ORDER LINH Final Result Performing Organization Address [facility] de Phone Number [facility] Department [place] [address] * (ABNORMAL) IgM (04/02/2025 9:42 AM CDT) Pathologist [facility] Immunoglobulin M <25(L) 40 - 230 mg/dL Blood 04/02/2025 9:42 AM CDT 04/02/2025 10:54 AM CDT Justin Flowers MD LAB BLOOD ORDER LINH Final Result Performing Organization Address [facility] de Phone Number [facility] [place] [address] * (ABNORMAL) IgG (04/02/2025 9:42 AM CDT) Pathologist [facility] Immunoglobulin G 318(L) 700 - 1,600 mg/dL Blood 04/02/2025 9:42 AM CDT 04/02/2025 10:54 AM CDT Justin Flowers MD LAB BLOOD ORDER LINH Final Result Performing Organization Address [facility] de Phone Number [facility] [employer] [place] [address] * (ABNORMAL) Beta 2 microglobulin, serum (04/02/2025 9:42 AM CDT) Pathologist [facility] Beta 2 microglobulin, bld 4.00(H) 1.00 - 2.50 mg/L Comment: Interpretive Data The Lucas Beta-2 microglobulin assay procedure was used. Results from different manufacturers or methods may not be comparable. Serial testing should be performed using the same method. Blood 04/02/2025 9:42 AM CDT 04/02/2025 10:54 AM CDT Justin Flowers MD LAB BLOOD ORDER LINH Final Result [facility] One [facility] [place] [address] * (ABNORMAL) Comprehensive metabolic panel (04/02/2025 9:42 AM CDT) Sodium 138 135 - 145 mmol/L Potassium, pl 4.4 3.3 - 4.9 mmol/L [facility] Chloride 99 97 - 110 mmol/L [facility] CO2 30 22 - 32 mmol/L [facility] Anion gap 9 2 - 15 mmol/L [facility] BUN 25 6 - 25 mg/dL [facility] Creatinine 1.50(H) 0.80 - 1.30 mg/dL [facility] Glucose 150 70 - 199 mg/dL [facility] Comment: Interpretive Data Fasting glucose >/= [...] 2022. Calcium 9.8 8.5 - 10.3 mg/dL [facility] Bilirubin, total 1.0 0.1 - 1.2 mg/dL [facility] Protein, pl 6.4(L) 6.5 - 8.5 g/dL [facility] Albumin 4.0 3.5 - 5.0 g/dL [facility] Alk phos 223(H) 40 - 130 Units/L [facility] ALT 21 7 - 55 Units/L [facility] AST 25 10 - 50 Units/L [facility] Blood 04/02/2025 9:42 AM CDT 04/02/2025 10:02 AM CDT Justin Flowers MD LAB BLOOD ORDER LINH Final Result DULCE MARIA [facility] One [facility] [place] [address] from Last 3 Months Additional Health Concerns Infection Onset Date 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 Specials protocols are implemented when working with a patient testing positive for C. Auris. 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 05/07/2025 05/07/2025 Insurance [facility] [place] [place] [address] [facility] Member Subscriber Plan / Payer (Ef fective 2023-Present) Name:Asuncion Gosia William Relation to Subscriber:Self Name:Gosia Zuniga Payer ID:[id number] (NAIC) Group ID:[id number] Type:[employer] Knowledge Address: [address] [facility] Member Subscriber Plan / Payer (Ef fective 2023-Present) Name:Gosia Zuniga Relation to Subscriber:Self Name:Gosia Zuniga Payer ID:[id number] (NAIC) Group ID:[id number] Type:[employer] Knowledge Address: [address] Advance Directives For more information, please contact: [phone] * Full Code (Latest Code Status on File) Date Activated Date Inactivated Comments 05/21/2025 6:37 AM 06/11/2025 8:58 PM * Full Code Date Activated Date Inactivated Comments 05/20/2025 1:32 AM 05/21/2025 6:37 AM * Full Code Date Activated Date Inactivated Comments 04/08/2025 9:38 AM 05/20/2025 1:32 AM * Full Code Date Activated Date Inactivated Comments 11/27/2023 5:46 PM 11/30/2023 5:34 PM Care Teams 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
--- OUTSIDE RECORDS SUMMARY | 2025-06-24 12:00 | XMS_ITS | Encounter Summary ---
Author Name [facility] [place] [facility] [place] [facility] [place] Address [address] [place] [address] Care Team Providers Care Sensitized Paper Tester Name Role Phone ELLIOTKAROLINA FernandezE Primary Care Provider Unavailabl e Insurance Providers: [...] Kennedy's Name Patient's Relationship to Policy Kennedy [facility] 2024 [facility] Nov 21, 2024 [facility] [id number] Elzbieta ZUNIGA PATIENT Selected Encounter This section includes the information on record at NH for the Encounter. 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 This section includes future appointments and future orders which are active, pending or scheduled. Future Appointments This section includes appointments that were scheduled to occur 6 months from the date of the Encounter, up to a maximum of 20 appointments. The data comes from all [facility]. Appointment Date/Time Appointment Type Appointme nt Facility Name Feb 26, 2025 07:15 AM AMBULATORY - NONE [facility] Mar 12, 2025 03:00 PM AMBULATORY - NONE [facility] March 27, 2025 08:30 AM AMBULATORY - MEDICINE [facility] Jul 24, 2025 09:00 AM AMBULATORY - MEDICINE [facility] Aug 14, 2025 02:40 PM AMBULATORY - NONE [facility] Active, Pending, and Scheduled Orders This section includes a listing of several types of active, pending, and scheduled orders, including clinic medications orders, diagnostic test orders, procedure orders and consult orders; where the start date of the order is 45 days before the date of the Encounter or 45 days after the date of theEncounter. The data comes from all [facility]. 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 Radiology Reports and Pathology Reports are provided separately, in subsequent sections. Lab Results This section contains the Chemistry/Hematology Results that were resulted 30 days before or 30 daysafter the date of the Encounter. Date/Time Source Result Type Result - Unit Interpretation Reference Range Specimen Type Comment Feb 26, 2025 06:45 AM [facility] GLUCOSE,BLOOD-poct (STL) BLOOD Specimen Type: BLOOD Comment: Test Performed by: [id number] Meter #: [id number] Ordering Provider: ADAMA CHACON Report Released Date/Time: Feb 26, 2025 06:50 AM Reporting Lab: [place] [address] [facility] [address] Performing Lab: [address] [address] GLUCOSE,BLOOD-poct (L) 110 mg/dL H 72-99 Feb 12, 2025 08:43 AM [facility] URINALYSIS (L-PB) URINE Specimen Type: URIN E No comment entered. Ordering Provider: HENNY MARLEY Report Released Date/Time: Feb 01, 2025 12:11 PM Reporting Lab: [place] [address] [place] [address] Performing Lab: [place] [address] [facility] [address] URINE COLOR Light-Yellow Yellow U.BILIRUBIN Negative mg/dL Negative U.PH 6.5 5.0-8.0 URINE WBC/HPF 1 /[HPF] 0-5 URINE RBC/HPF <1 /[HPF] 0-5 APPEARANCE Clear Clear U.NITRITE Negative mg/dL Negative URN.GLUCOSE 1000 mg/dL H Negative URN.PROTEIN 100 mg/dL H URN.UROBILINOGEN Normal mg/dL Normal URN.BLOOD Negative mg/dL Negative-Trace URN.KETONES Negative mg/dL Negative-Trac e URN.LEUK.EST. Negative mg/dL Negative-Tr jackie URN.SPECIFIC GRAVITY 1.046 H Feb 12, 2025 08:43 AM [facility] URINE DRUG SCREEN (STL) URINE Specimen Type: URINE Comment: The cut-off value for Fentanyl was laboratory developed and its performance characteristics confirmed by the [facility] laboratory thru method comparison with reference laboratory and medication chart review. The laboratory is regulated under CLIA as qualified to perform high-complexity testing. Fentanyl is used for clinical purposes in conjunction with other laboratory tests. Ordering Provider: HENNY MARLEY Report Released Date/Time: Feb 01, 2025 12:11 PM Reporting Lab: [facility] [address] [facility] [address] Performing Lab: [facility] [address] [facility] [address] ETHANOL <10 mg/dL 0-9 AMPHET/METHAMPHETAMINE Negative ng/mL COCAINE METABOLITES Negative ng/mL BENZODIAZEPINES (STL) Negative ng/mL CANNABINOIDS Negative ng/mL METHADONE Negative ng/mL OPIATES Negative ng/mL CREATININE URINE/OTHERS 88.9 mg/dL 63-16 6 OXYCODONE (ZBYKD-QLB-XO) Negative ng/mL BUPRENORPHINE (STL-PB-MA) Negative ng/mL FENTANYL (STL) Negative ng/mL Feb 12, 2025 08:24 AM [facility] QUANTIFERON-TB,4 TUBE BLOOD Specimen Type: [...] T-lymphocytes. For additional information, please refer to http://education.Simple Emotion.Finsphere/faq/QWE345 (This link is being provided for information/ educational purposes only.) Test Performed by [facility], [facility], [address] [place] [address] Jah Wade M.D., Ph.D., Director of Laboratories , CLIA [id number] Ordering Provider: HENNY MARLEY Report Released Date/Time: Feb 01, 2025 12:11 PM Reporting Lab: [address] [address] Performing Lab: [address] .NIL - QUANTIFERON 0.03 [IU]/mL .MITOGEN-NIL 7.90 [IU]/mL .QUANTIFERON NEGATIVE NEGATIVE .TB1-NIL 0.00 [IU]/mL .TB2-NIL <0.00 [IU]/mL Feb 12, 2025 08:24 AM [facility] NICOTINE AND METABOLITES SERUM Specimen Type: SERUM Comment: Reference Ranges(ng/mL): Non-Smoker Active Tobacco User < or = to 4 2-10 Reference Ranges(ng/mL): Non-Smoker Active Tobacco User < or = to 8 16-145 This test was developed and its analytical performance characteristics have been determined by [facility] [place], [place]. It has not been cleared or approved by the U.S. Food and Drug Administration. This assay has been validated pursuant to the CLIA regulations and is used for clinical purposes. Test Performed by [facility], [facility], [address] [place] [address] Jah Wade M.D., Ph.D., Director of Laboratories , CLIA [id number] Ordering Provider: HENNY MARLEY Report Released Date/Time: Feb 01, 2025 12:11 PM Reporting Lab: [address] [address] Performing Lab: [address] NICOTINE <2 ng/mL COTININE <2 ng/mL Feb 12, 2025 08:24 AM [facility] CMV(IGG & IGM)(STL) SERUM Specimen Type: SERU M No comment entered. Ordering Provider: HENNY MARLEY Report Released Date/Time: Feb 01, 2025 12:11 PM Reporting Lab: [place] [address] [place] [facility] [place] [address] Performing Lab: [place] [address] [facility] [address] CMV-IGG-EIA POSITIVE NEGATIVE CMV-IGM-EIA NEGATIVE NEGATIVE Feb 12, 2025 08:24 AM [facility] HEPATITIS B SURFACE AB PNL SERUM Specimen Typ e: SERUM Comment: The listed sex of this patient may not be a typical indication for this test. Therefore, reference ranges or interpretive criteria listed may not be valid. Clinical correlation suggested. Ordering Provider: HENNY MARLEY Report Released Date/Time: Feb 01, 2025 12:11 PM Reporting Lab: [place] [address] [place] [place] [address] Performing Lab: [place] [address] [facility] [address] HEP B Surface Ab-HBsAB (L) Nonreactive m[IU]/m L Nonreactive Feb 12, 2025 08:24 AM [facility] HEP HB S Ag (AUSRIA) (STL) SERUM Specimen Typ e: SERUM Comment: The listed sex of this patient may not be a typical indication for this test. Therefore, reference ranges or interpretive criteria listed may not be valid. Clinical correlation suggested. Ordering Provider: HENNY MARLEY Report Released Date/Time: Feb 01, 2025 12:11 PM Reporting Lab: [place] [address] [facility] [address] Performing Lab: [place] [address] [facility] [address] HEP HB S Ag (AUSRIA) (STL) Nonreactive N onreactive Feb 12, 2025 08:24 AM [facility] HEP C Ab HCV Ab (L) SERUM Specimen Type: SE RUM Comment: The listed sex of this patient may not be a typical indication for this test. Therefore, reference ranges or interpretive criteria listed may not be valid. Clinical correlation suggested. Ordering Provider: HENNY MARLEY Report Released Date/Time: Feb 01, 2025 12:11 PM Reporting Lab: [facility] [address] [facility] [address] Performing Lab: [facility] [address] [facility] [address] HEP C Ab HCV Ab (STL) Nonreactive Nonrea ctive Feb 12, 2025 08:24 AM [facility] HIV COMBO FOURTH GENERATION (STL) SERUM Speci men Type: SERUM No comment entered. Ordering Provider: HENNY MARLEY Report Released Date/Time: Feb 01, 2025 12:11 PM Reporting Lab: [facility] [address] [place] [address] Performing Lab: [address] [address] HIV COMBO FOURTH GENERATION (STL) Nonreactive Nonreactive Feb 12, 2025 08:24 AM [facility] ETHANOL PLASMA Specimen Type: PLASM A Comment: No hemolysis noted. Ordering Provider: HENNY MARLEY Report Released Date/Time: Feb 01, 2025 12:11 PM Reporting Lab: [facility] [address] [facility] [address] Performing Lab: [address] [address] ETHANOL <10 mg/dL 0-9 Feb 12, 2025 08:24 AM [facility] PT/INR NEW (L-MA) PLASMA Specimen Type: PLAS MA No comment entered. Ordering Provider: HENNY MARLEY Report Released Date/Time: Feb 01, 2025 12:11 PM Reporting Lab: [place] [address] [facility] [address] Performing Lab: [address] [address] PROTIME 14.8 s H 9.4-12.5 INR VALUE 1.3 {INR} Feb 12, 2025 08:24 AM [facility] RAPID PLASMA REAGIN (RPR) SERUM Specimen Type : SERUM No comment entered. Ordering Provider: HENNY MARLEY Report Released Date/Time: Feb 01, 2025 12:11 PM Reporting Lab: [facility] [address] [facility] [address] Performing Lab: [address] [address] RAPID PLASMA REAGIN (RPR) Non-Reactive N ONREACTIVE Feb 12, 2025 08:24 AM [facility] PROST. SPECIFIC AG.(PB-STL) SERUM Specimen Ty pe: SERUM Comment: The listed sex of this patient may not be a typical indication for this test. Therefore, reference ranges or interpretive criteria listed may not be valid. Clinical correlation suggested. Ordering Provider: HENNY MARLEY Report Released Date/Time: Feb 01, 2025 12:11 PM Reporting Lab: [address] [address] Performing Lab: [address] [address] PROST. SPECIFIC AG.(PB-STL) 0.347 ng/mL 0-4 Feb 12, 2025 08:24 AM [facility] TSH W/ REFLEX FT4 (STL) PLASMA Specimen Type: PLASMA No comment entered. Ordering Provider: HENNY MARLEY Report Released Date/Time: Feb 01, 2025 12:11 PM Reporting Lab: [address] [address] Performing Lab: [address] [address] TSH 1.316 u[IU]/mL 0.47-5 Feb 12, 2025 08:24 AM [facility] COMPREHENSIVE METABOLIC PANEL PLASMA Specimen Type: PLASMA Comment: No hemolysis noted. Ordering Provider: HENNY MARLEY Report Released Date/Time: Feb 01, 2025 12:11 PM Reporting Lab: [address] [address] Performing Lab: [address] [address] CREATININE 1.36 mg/dL H 0.7-1.3 UREA NITROGEN [...] >60 Feb 12, 2025 08:24 AM [facility] CBC BLOOD Specimen Type: BLOOD No comment entered. Ordering Provider: HENNY MARLEY Report Released Date/Time: Feb 01, 2025 12:11 PM Reporting Lab: [place] [address] [facility] [address] Performing Lab: [place] [address] [facility] [address] WBC 7.2 10*3/uL 3.6-11.2 RBC 5.22 10*6/uL [...] 0.00-0. 20 Feb 12, 2025 08:08 AM [facility] I-STAT, CREAT (STL-MA) BLOOD Specimen Type: B LOOD Comment: Test Performed by: [id number] Meter #: [id number] Ordering Provider: ADAMA CHACON Report Released Date/Time: Feb 12, 2025 08:10 AM Reporting Lab: [facility] [address] [place] [address] Performing Lab: [facility] [address] [place] [facility] [place] [place] [address] I-STAT, CREAT (STL-MA) 1.6 mg/dL H 0.7-1.3 Social History: Smoking Status (Most current) and Tobacco Use (All prior to encounter date) This section includes the most current, and the historical, smoking and tobacco- related health factors from the NH facility where the Encounter took place. Current Smoking Status This section includes the most current smoking, or tobacco-related health factor, from the NH facility where the Encounter took place. Date/Time Current Smoking Status Comment Khurram ity Jan 17, 2025 09:00 AM NH-TOBACCO NEVER U SED CIGARETTES [facility] Tobacco Use History This section includes a history of the smoking, or tobacco-related health factors, that were collected on or before the date of the Encounter. The data comes from the NH facility where the Encounter took place. Date/Time Smoking Status/Tobacco Use Comment F acility Jan 17, 2025 09:00 AM NH-TOBACCO NEVER U SED OTHER TYPE [facility] Feb 10, 2024 06:16 PM ORYX ADMIT TOBACCO SCREEN NO [facility] Advance Directives: All historical and current Section Date Range: From patient's date of to the date document was created. This section includes ALL of a patient's completed or amended NH Advance and Rescinded Directives. The entries below indicate that a directive exists for the patient, but an actual copy is not included with this document. The data comes from all NH facilities. Date Advance Directives Provider Source Feb 16, 2024 ADVANCE DIRECTIVE GINA BRIGHT [facility] Radiology Reports: +/- 30 days of [...] the Encounter. The data comes from all NH treatment facilities. Date/Time Radiology Report Provider Source Mar 12, 2025 02:[address] ABDOMEN W/CONT & 3D: GOSIA ZUNIGA [id number] -1965 M Exm Date: MAR 12, 2025@14:23 Req Phys: HENNY MARLEY Loc: [facility]CARDIO E-CONSULT (Req'g Loc Img Loc: [facility]-CT IMAGING [facility] Service: Unknown [address] [address] (Case [id number] COMPLETE) CT ABDOMEN W/O CONT (CT Detailed) CPT:14555 Reason for Study: c/f metastasis, CT adrenal gland protocol Clinical History: Responsible Attending: Henny Marley PA-C Attending Contact Number: [id number] Resident Contact Number: CT adrenal gland protocol [...] 12, 2025 Date Verified: MAR 12, 2025 Administrative Assistant Coordinator E-Sig:/ES/Zoe Craven MD Report: CASE #: [id number] DATE:03/12/2025 3:02 PM CLINICAL HISTORY:c/f metastasis, CT [...] Primary Interpreting Staff: Zoe Craven MD, Radiologist (Administrative Assistant Coordinator) /ZOE RODRIGUEZ [facility] Feb 26, 2025 06:40 AM PET/CT TUMOR IMAGING (SKULL TO MID-THIGH)-P: GOSIA ZUNIGA [id number] -1965 M Exm Date: FEB 26, 2025@06:40 Req Phys: HENNY MARLEY Loc: [facility]IO E-CONSULT (Req'g Loc Img Loc: [facility]-PET-CT Service: Unknown [address] [address] (Case [id number] COMPLETE) PET/CT TUMOR SKULL BASE TO MID-T(NM Detailed) CPT:31684 CPT Modifiers : PI PET TUMOR INIT TX STRAT Reason for Study: ct shows new adrenal nodules c/f metastatic disease (Case 1116 COMPLETE) F-18 FLUORODEOXYGLUCOSE (FDG),PER(NM Detailed) CPT:A9552 Clinical History: Report Status: Verified Date Reported: FEB 26, 2025 Date Verified: FEB 26, 2025 Administrative Assistant Coordinator E-Sig:/ES/Adele Fernández MD,PhD Report: NAME: Gosia Zuniga CASE #: [id number] PROCEDURE: FDG PET/CT study HISTORY: 59-year-old male [...] The brain is partially included in the qpitr-ny-lmep. The visualized portion of the brain demonstrates [...] CODE: 1001 Dictated by Brian Garcia MD (vice president integrated) I, ADELE FERNÁNDEZ, have reviewed the images and report and concur with these findings. Primary Diagnostic Code: SIGNIFICANT ABNORMALITY, ATTN NEEDED Primary Interpreting Staff: Adele Fernández MD,PhD, Nuclear Medicine Physician (Administrative Assistant Coordinator) Primary Interpreting Resident: BRIAN GARCIA, RESIDENT PHYSICIAN /ADELE HOROWITZ [facility] Feb 12, 2025 08:[address] THORAX, DIAGNOSTIC, W/CONTRAST: LAURAGOSIA Holguin [id number] -1965 M Ex Date: FEB 12, 2025@08:01 Req Phys: HENNY MARLEY Loc: [facility]-CARDIOLOGY [place] (Req'g Lo Im Loc: [facility]CT IMAGING [facility] Service: Unknown [facility], [address] [place] [address] (Case [id number] COMPLETE) CT THORAX, DIAGNOSTIC, W/CONTRAS(CT Detailed) CPT:83153 Contrast Media : Non-ionic Iodinated Reason for Study: HF advanced therapies work-up Clinical History: Responsible Attending: Henny Marley PA-C Attending Contact Number: [phone] Resident Contact Number: HF advanced therapies work-up [...] 12, 2025 Date Verified: FEB 12, 2025 Administrative Assistant Coordinator E-Sig:/ES/CHUY BANKS Report: EXAM: CT chest and [...] Primary Interpreting Staff: CHUY BANKS, Staff Physician (Bhavana) /CHUY RENDON [facility] Feb 12, 2025 08:[address] ABD PEL W/CONT & 3D: GOSIA ZUNIGA [id number] -1965 M Exm Date: FEB 12, 2025@08:00 Req Phys: HENNY MARLEY Loc: [facility]-CARDIOLOGY [place] (Req'g Lo Img Loc: [facility]CT IMAGING [facility] Service: Unknown [facility] [address] [place] [address] (Case [id number] COMPLETE) CT ABDOMEN AND PELVIS W/CONTRAST (CT Detailed) CPT:20221 Contrast Media : Non-ionic Iodinated Reason for Study: HF advanced therapies work-up Clinical History: Responsible Attending: Henny Marley PA-C Attending Contact Number: [id number] Resident Contact Number: HF advanced therapies work-up [...] 12, 2025 Date Verified: FEB 12, 2025 Administrative Assistant Coordinator E-Sig:/ES/CHUY BANKS Report: EXAM: CT chest and [...] the pelvis. RR Primary Interpreting Staff: CHUY BANKS Staff Physician (Administrative Assistant Coordinator) /CHUY RENDON [facility] Feb 12, 2025 07:19 AM US ABDOMEN LIMITED W/BLOOD FLOW DOPPLER: GOSIA ZUNIGA [id number] -1965 M Exm Date: FEB 12, 2025@07:19 Req Phys: HENNY MARLEY Loc: [facility]ARDIOLOGY [place] (Req'g Lo Img Loc: [facility]-ULTRASOUND [facility] Service: Unknown [facility] [address] [place] [address] (Case [id number] COMPLETE) US ABDOMEN LTD, SINGLE ORG OR BECKY(US Detailed) CPT:84534 Reason for Study: HF advanced therapies work-up (Case 914 COMPLETE) US BLOOD FLOW ABD/RENAL (LTD) (US Detailed) CPT:13823 Clinical History: Organ to Image: RUQ Reason for exam: HF advanced therapies work-up Report Status: Verified Date Reported: FEB 12, 2025 Date Verified: FEB 12, 2025 Administrative Assistant Coordinator E-Sig:/ES/ASHLEE RAPHAEL Report: Case [id number], [id number]. US ABDOMEN LTD, SINGLE ORG OR QUADRANT, [...] Impression: Unremarkable right upper quadrant ultrasound examination. IAshlee, have reviewed the images and report and concur with these findings. Primary Interpreting Staff: ASHLEE RAPHAEL, RADIOLOGIST (Administrative Assistant Coordinator) Primary Interpreting Resident: VIJI JOHNSON, Resident Physician /ASHLEE GODWIN [facility] Encounter Notes: All associated encounter notes This section contains the clinical notes associated to the Encounter. Date/Time Encounter Note(s) Provider Source Feb 22, 2025 10:43 AM CONSULT: LOCAL TITLE: E-CONSULT HEMATOLOGY/ONCOLOGY OUTPT ST STANDARD TITLE: CONSULT DATE OF NOTE: FEB 22, 2025@10:43 ENTRY DATE: FEB 22, 2025@10:44:22 AUTHOR: GELA OLIVARES EXP COSIGNER: URGENCY: STATUS: COMPLETED The reason for consult: Bilateral adrenal nodules I have reviewed pertinent CPRS documentation in the electronic medical record for this patient. The recommendations/findings offered are the result of information from the requesting provider and a chart review only. Mr Zuniga is a 59 yo with amyloidosis currently tx with daratumumab. He is undergoing cardiac transplant evaluation. Workup imaging demonstrates small bilateral indeterminant nodules. No other chart history of malignancy. Previous imaging does not demonstrate adrenal nodules however adrenal enlargement is apparent. Diagnosis and/or Impression: Bilateral adrenal enlargement vs adenoma vs metastatic disease. In abscence of primary solid malignancy recommend additional workup with dedicated adrenal gland protocol ct vs mr. PET CT is already requested. FDG avidity may confirm suspicion for metastatic disease. Could await this test prior to adrenal gland ct. If suspicion for metastatic disease on further imaging and no other e/o for primary disease, a biopsy will be necessary. Bilateral pheochromocytoma would be a highly unlikely scenario however in anticipation of adrenal gland biopsy, would recommend assessment of catecholamies. 21 minutes to 30 minutes spent reviewing patient's medical records /luan/ Gela Olivares MD Staff Physician Signed: 02/22/2025 11:20 Receipt Acknowledged By: 02/26/2025 07:34 /luan/ ABRIL VERGARA MD PHD STAFF PHYSICIAN AND CHIEF OF HEART FAILURE 02/26/2025 08:16 /luan/ Henny Marley PA-C Cardiology Physician [employer] Drilling Manager GELA OLIVARES [facility]
--- OUTSIDE RECORDS SUMMARY | 2025-06-24 12:00 | XMS_ITS | Encounter Summary ---
Author Name [facility] [place] Address [address] [place] [address] Care Team Providers Care Ticket Sorter Name Role Phone OSWALDO ADAMA Primary Care [...] Kennedy's Name Patient's Relationship to Policy Kennedy [facility] 2024 [facility] Nov 21, 2024 [facility] [id number] 12 Elzbieta ZUNIGA PATIENT Selected Encounter This section includes the information on record at [place] for the Encounter. Date/Time Encounter Type Encounter [...] this document. The data comes from all [place] facilities. Date Advance Directives Provider Source Feb 16, 2024 ADVANCE DIRECTIVE GINA BRIGHT [facility]
--- OUTSIDE RECORDS SUMMARY | 2025-06-24 12:00 | XMS_ITS ---
Author Name [facility] [place] [facility] [place] Address [address] [place] [address] Care Team Providers Care Wildlife Science Professor Name Role Phone OSWALDOADAMA Primary Care Provider [...] to Policy Kennedy [facility] 2024 [facility] Nov 21, 2024 [facility] [id number] 12 Elzbieta ZUNIGA PATIENT Selected Encounter This section includes the information on record at [place] for the Encounter. Date/Time Encounter Type Encounter Description Reason Provider Source Sep 18, 2024 10:30 AM FOOD SERVICES COORDINATOR PATTERN DATA OPERATOR INDIVIDU FOOD SERVICES COORDINATOR SERVICE - INDIVIDUAL ICD-10-CM Z71.81 Spiritual or mandaen counseling GILBERT ALBARRAN Encounter Template Text not used by [facility] Assessments - Encounter Diagnoses This section includes the primary and secondary diagnoses documented for the Encounter. Date/Time Primary/Secondary Diagnosis Diagnosis Name Provider Source Sep 18, 2024 12:49 PM PRIMARY Spiritual or mandaen counseling FEDERICO DICKINSON [facility] Plan of Treatment: Future Appointments (+ 6 months) and Future Tests (+/- 45 days) The Plan of Treatment section includes future care activities for the patient [facility] [place] [facility] This section includes future appointments and future orders which are active, pending or scheduled. Future Appointments This section includes appointments that were scheduled to occur 6 months from the date of the Encounter, up to a maximum of 20 appointments. The data comes from all [facility]. Appointment Date/Time Appointment Type Appointme nt Facility Name Oct 27, 2024 12:11 PM AMBULATORY - MEDICINE [facility] Jan 09, 2025 08:00 AM AMBULATORY - MEDICINE [facility] Jan 09, 2025 08:30 AM AMBULATORY - MEDICINE [facility] Jan 17, 2025 09:00 AM AMBULATORY - MEDICINE [facility] Jan 22, 2025 07:45 AM AMBULATORY - SURGERY [facility] Jan 25, 2025 07:30 AM AMBULATORY - NONE [facility] Jan 29, 2025 10:00 AM AMBULATORY - MEDICINE [facility] Feb 12, 2025 08:00 AM AMBULATORY - MEDICINE [facility] Feb 12, 2025 08:30 AM AMBULATORY - NONE [facility] Feb 26, 2025 07:15 AM AMBULATORY - NONE [facility] Mar 12, 2025 03:00 PM AMBULATORY - NONE [facility] Active, Pending, and Scheduled Orders This section includes a listing of several types of active, pending, and scheduled orders, including clinic medications orders, diagnostic test orders, procedure orders and consult orders; where the start date of the order is 45 days before the date of the Encounter or 45 days after the date of theEncounter. The data comes from all [facility]. Test Date/Time Test Type Test Details Facility Name Sep 18, 2024 12:00 AM Laboratory - Blood Bank Order TYPE & SCREEN - LAB BLOOD SP [facility] Sep 26, 2024 12:00 AM Laboratory - Chemi stry Order BASIC METABOLIC PANEL GREEN LI/HEP BLD/PLAS PLASMA SP [facility] Lab Results: +/- 30 days of the [...] Type Comment Sep 18, 2024 08:40 AM [facility] POC AVOX PANEL BLOOD Specimen Type: BLOOD Comment: Test Performed by: [id number] Meter #: [id number] Ordering Provider: ADAMA CHACON Report Released Date/Time: Sep 18, 2024 09:03 AM Reporting Lab: [address] [address] Performing Lab: [address] [address] POC AVOX O2HB 75.8 L 92-100 POC AVOX THB 14.7 g/dL 13.1-16.8 Sep 18, 2024 08:38 AM [facility] POC AVOX PANEL BLOOD Specimen Type: BLOOD Comment: Test Performed by: [id number] Meter #: [id number] Ordering Provider: ADAMA CHACON Report Released Date/Time: Sep 18, 2024 09:00 AM Reporting Lab: [address] [address] Performing Lab: [address] [address] POC AVOX O2HB 69.7 L 92-100 POC [place]OX THB 14.9 g/dL 13.1-16.8 Sep 18, 2024 08:37 AM [facility] POC AVOX PANEL BLOOD Specimen Type: BLOOD Comment: Test Performed by: [id number] Meter #: [id number] Ordering Provider: ADAMA CHACON Report Released Date/Time: Sep 18, 2024 08:59 AM Reporting Lab: [address] [address] Performing Lab: [address] [address] POC AVOX O2HB 62.7 L 92-100 POC AVOX THB 14.9 g/dL 13.1-16.8 Sep 18, 2024 08:35 AM [facility] POC AVOX PANEL BLOOD Specimen Type: BLOOD Comment: Test Performed by: [id number] Meter #: [id number] Ordering Provider: ADAMA CHACON Report Released Date/Time: Sep 18, 2024 08:58 AM Reporting Lab: [address] [address] Performing Lab: [address] [address] POC [place]OX O2HB 61.3 L 92-100 POC [place]OX THB 15.2 g/dL 13.1-16.8 Sep 18, 2024 06:55 AM [facility] PT/INR NEW (STL-MA) PLASMA Specimen Type: PLAS MA No comment entered. Ordering Provider: BARBI STOKES Report Released Date/Time: Aug 23, 2024 02:43 PM Reporting Lab: [address] [address] Performing Lab: [address] [address] PROTIME 20.6 s H 9.4-12.5 INR VALUE 1.9 {INR} Sep 18, 2024 06:55 AM [facility] BASIC METABOLIC PANEL PLASMA Specimen Type: PL ASMA Comment: No hemolysis noted. Ordering Provider: BARBI STOKES Report Released Date/Time: Aug 23, 2024 02:43 PM Reporting Lab: [address] [address] Performing Lab: [address] [address] CREATININE 1.42 mg/dL H 0.7-1.3 UREA NITROGEN 23.7 mg/dL 9.0-25.0 GLUCOSE 109 mg/dL H 72-99 SODIUM 136 meq/L 136-145 POTASSIUM 4.4 meq/L 3.5-5 CHLORIDE 100 meq/L 98-107 CARBON DIOXIDE 25 meq/L 22-31 CALCIUM 10.0 mg/dL 8.4-10.4 EGFR (CKD-EPI 2020) 56.6 >60 Sep 18, 2024 06:55 AM [facility] CBC BLOOD Specimen Type: BLOOD No comment entered. Ordering Provider: BARBI STOKES Report Released Date/Time: Aug 23, 2024 02:43 PM Reporting Lab: [facility] [address] [facility] [address] Performing Lab: [facility] [address] [facility] [address] WBC 7.7 10*3/uL 3.6-11.2 RBC 5.21 10*6/uL [...] AM 98 73 123/87 18 98 0 [facility] Sep 18, 2024 06:43 AM 81 18 [facility] Sep 18, 2024 06:42 AM 97.9 117/80 100 4 72 159 22 [facility] Social History: Smoking Status [...] place. Date/Time Current Smoking Status Comment Khurram bachnathalia Feb 10, 2024 06:16 PM ORYX ADMIT TOBACCO SCREEN NO [facility] Advance Directives: All historical and current Section [...] Provider Source Feb 16, 2024 ADVANCE DIRECTIVE SUZETTEBreanaGINA [facility] Encounter Notes: All associated encounter notes This section contains the clinical notes associated to the Encounter. Date/Time Encounter Note(s) Provider Source Sep 18, 2024 10:35 AM PASTORAL CARE NOTE : LOCAL TITLE: PASTORAL CARE NOTE STANDARD TITLE: PASTORAL CARE NOTE DATE OF NOTE: SEP 18, 2024@10:35 ENTRY DATE: SEP 18, 2024@10:35:35 AUTHOR: FEDERICO DICKINSON COSIGNER: GILBERT ALBARRAN URGENCY: STATUS: COMPLETED Pastoral Visit: Initial Clinical Lab Clerk met with: Marengo, Spouse Location: Patient Room [facility] Preference: Unknown Initial Interaction: Introduced self Spiritual resources appear: adequate Discussed 's relationship with: spouse -Marengo was in the company of his of thirty years. -Marengo alluded to spouse's support and affirmative presence that has spanned for three decades. Discussed 's concerns regarding: condition - said that he was scheduled for two procedures. The first had been done and was successful in the Marengo's estimation. He feels good going into the second procedure. INTERVENTION Offered / accepted: pastoral support, ministry of presence, supportive listening OUTCOMES 's Response: expressed appreciation for the visit. Observations: experienced support, appeared to be in same state of mind as at beginning of encounter. - appeared to be in good spirits. /luan/ FEDERICO DICKINSON Wildlife Science Professor Clinical Lab Clerk Signed: 09/18/2024 10:44 /luan/ GILBERT ALBARRAN MA MDIV FOOD SERVICES COORDINATOR Cosigned: 09/18/2024 12:49 FEDERICO DICKINSON [facility]
--- OUTSIDE RECORDS SUMMARY | 2025-06-24 12:00 | XMS_ITS | Encounter Summary ---
Author Name [facility] [place] Organization [facility] [place] Address [address] [place] [address] Care Team Providers Care Jet Handler Name Role Phone ADAMA CHACON Primary Care [...] to Policy [facility] 2024 [facility] Nov 21, 2024 ON LICENSE OF [facility] [id number] 12 Elzbieta ANN PATIENT Selected Encounter This section includes the information on record at [place] for the Encounter. Date/Time Encounter Type Encounter Description Reason Provider Source April 03, 2025 09:09 AM Outpatient Encounter CARDIOLOGY ICD-10-CM I50.42 Chronic combined systolic and diastolic hrt fail HENNY MARLEY Encounter Template Text not used by [place] Assessments - Encounter Diagnoses This section includes the primary and secondary diagnoses documented for the Encounter. Date/Time Primary/Secondary Diagnosis Diagnosis Name Provider Source April 03, 2025 09:38 AM PRIMARY Chronic combined systolic and diastolic hrt fail HENNY MARLEY [facility] April 03, 2025 09:38 AM SECONDARY Light chain (AL) amyloidosis HENNY MARLEY [facility] Plan of Treatment: Future Appointments (+ 6 months) and Future Tests (+/- 45 days) The Plan of Treatment section includes future care activities for the patient from all [place] [facility] This section includes future appointments and future orders which are active, pending or scheduled. Future Appointments This section includes appointments that were scheduled to occur 6 months from the date of the Encounter, up to a maximum of 20 appointments. The data comes from all [place] treatment [facility]. Appointment Date/Time Appointment Type Appointme nt Facility Name Jul 24, 2025 09:00 AM AMBULATORY - MEDICINE [facility] Aug 14, 2025 02:40 PM AMBULATORY - NONE [facility] Active, Pending, and Scheduled Orders This section includes a listing of several types of active, pending, and scheduled orders, including clinic medications orders, diagnostic test orders, procedure orders and consult orders; where the start date of the order is 45 days before the date of the Encounter or 45 days after the date of theEncounter. The data comes from all [facility]. Test Date/Time Test Type Test Details Facility Name Feb 28, 2025 12:00 AM Laboratory - Chemi stry Order BASIC METABOLIC PANEL GREEN LI/HEP BLD/PLAS PLASMA SP [facility] March 29, 2025 03:45 PM Consult Order COMMUNITY CARE-TRANSPLANT EVALUATION STL Cons Garbage Stoker's Choice [facility] Social History: Smoking Status (Most current) and Tobacco Use (All prior to encounter date) This section includes the most current, and the historical, smoking and tobacco- related health factors from the [place] facility where the Encounter took place. Current Smoking Status This section includes the most current smoking, or tobacco-related health factor, from the [place] facility where the Encounter took place. Date/Time Current Smoking Status Comment Khurram reyes Jan 17, 2025 09:00 AM VA-TOBACCO NEVER U SED CIGARETTES [facility] Tobacco Use History This section includes a history of the smoking, or tobacco-related health factors, that were collected on or before the date of the Encounter. The data comes from the [place] facility where the Encounter took place. Date/Time Smoking Status/Tobacco Use Comment F acility Jan 17, 2025 09:00 AM VA-TOBACCO NEVER U SED OTHER TYPE [facility] Feb 10, 2024 06:16 PM ORYX ADMIT TOBACCO SCREEN NO [facility] Advance Directives: All historical and current Section Date Range: From patient's date of to the date document was created. This section includes ALL of a patient's completed or amended [place] Advance and Rescinded Directives. The entries below indicate that a directive exists for the patient, but an actual copy is not included with this document. The data comes from all [place] facilities. Date Advance Directives Provider Source Feb 16, 2024 ADVANCE DIRECTIVE GINA BRIGHT [facility] Radiology Reports: +/- 30 days of the [...] the Encounter. The data comes from all [place] treatment facilities. Date/Time Radiology Report Provider Source Mar 12, 2025 02:[address] ABDOMEN W/CONT & 3D: GOSIA ANN [id number] -[id number] M Exm Date: MAR 12, 2025@14:23 Req Phys: HENNY MARLEY Loc: [facility]-CARDIO E-CONSULT (Req'g Loc Img Loc: [facility]-CT IMAGING [facility] Service: Unknown [address] [address] (Case [id number] COMPLETE) CT ABDOMEN W/O CONT (CT Detailed) CPT:32374 Reason for Study: c/f metastasis, CT adrenal gland protocol Clinical History: Responsible Attending: Henny Marley PA-C Attending Contact Number: [id number] Resident Contact Number: CT adrenal gland protocol [...] 12, 2025 Date Verified: MAR 12, 2025 Knocker Out E-Sig:/ES/Zoe Craven MD Report: CASE #: [id number] DATE:03/12/2025 3:02 PM CLINICAL HISTORY:c/f metastasis, CT [...] Primary Interpreting Staff: Zoe Craven MD, Radiologist (Knocker Out) /ZOE RODRIGUEZ [facility] Encounter Notes: All associated encounter notes This section contains the clinical notes associated to the Encounter. Date/Time Encounter Note(s) Provider Source April 03, 2025 11:06 AM PHYSICIAN SUMMARY FOR TRANSPLANT CANDIDATE NOTE: LOCAL TITLE: PHYSICIAN TRANSPLANT ASSESSMENT ST STANDARD TITLE: PHYSICIAN SUMMARY FOR TRANSPLANT CANDIDATE NOTE DATE OF NOTE: APRIL 03, 2025@11:06 ENTRY DATE: APRIL 03, 2025@11:07 AUTHOR: VERGARA,ABRIL D EXP COSIGNER: URGENCY: STATUS: COMPLETED REPORTS AND SUMMARIES VA STAFF PHYSICIAN ASSESSMENT FOR TRANSPLANT CANDIDATES Heart All transplant referrals require a current and concise summary from the referring [place] staff physician introducing their patient to the [place] Central Office physician review board. This assessment should include the following: I. INTRODUCTION OF PATIENT Mr. Ann is a 59 y/o gentleman with late diagnosis of AL amyloid. He has had a remarkable course with appropriate Stephanie-CyborD treatment and is now in hematologic remission. Unfortunately, given his late diagnosis, he has significant cardiac involvement with low output failure, and restrictive myopathy. In addition, he does suffer from autonomic dysfunction, but this has been very well controlled on droxidopa and midodrine. He has been following with me for the past 2.5 years, as well as my partners at [facility] in cardio-oncology, heme-onc. He is an exceptional transplant candidate from a medication compliance / social support / overall patient. I am guardedly optimistic that HT will help his HF symptoms and make him feel significantly better (currently NYHA IIIb/IV symptoms). II. PRIMARY DIAGNOSIS ASSESSMENT Patient has biopsy proven AL amyloid, and is now in complete hematologic remission after Stephanie-CyborD treatment. We would discuss with oncology, but likely continue maintenance Stephanie after transplant vs. watch for relapse and consider SCT if needed after OHT. III. BRIEF MEDICAL EXAMINATION Gen: NAD, thin white male CV; RRR Abd: Soft, NT, ND Ext: 1+ pitting edema. IV. MEDICAL COMORBIDITIES He has no significant medical comborbidities that would preclude transplant other than: - Mild CKD - Autonomic dysfunction. V. BRIEF SURGICAL HISTORY Please see note. . 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 VII. OVERALL ASSESSMENT AND RECOMMENDATION I think he is a LOW risk and exceptional candidate for OHT. He has excellent social support, very high medical literacy, and a very complaint patient who has had to juggle visits between myself, and the [facility] with multiple physicians. VIII. POINT OF CONTACT INFORMATION Abril Vergara MD, PhD Chief of HF, [facility]. [phone] MOST RECENT NOTE FROM MY CLINIC VIST IN MARCH: [place] ST ADVANCED HEART FAILURE SERVICE: FOLLOW-UP VISIT NOTE PRINCIPAL AND SECONDARY DIAGNOSES: 1. Cardiac amyloid, AL / Lambda subtype - Followd by Aris Chong and Justin Schaffer - Started on Stephanie-CyBorD (11/12) - Seen by [facility] nephrology for kidney involvement (proteinuria) - Seen by [facility] GI for likely GI involvement (Sammi). 2. NICM - C with clean cors 3. Atrial fibrillation - On Eliquis A/C 4. HTN 5. Low back pain 6. Gout 7. Lung nodules / pleural thickening of unknown origin. 8. Bilateral adrenal adenomas. CARE TEAM: 1. ADAMA CHACON B INTERVAL HISTORY: We had the pleasure of seeing GOSIA ANN in the [facility] Advanced Heart Failure Program. As you know, GOSIA ANN is a 59 year old WHITE MALE with PMH notable for HFmrEF, biopsy proven cardiac amyloid (AL), with cardiac involvement proven on EMB. He is comanaged by the [facility] (Cards, GI, Heme-Onc, Renal). He follows with Justin Flowers, and has undergone treatment with Stephanie-Cybor D, and has been tolerating this treatment well except for some nausea. 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 He notes he continues to have lower [...] Notes he's having some breast tenderness from robin. Continues with rare dizziness, LH. BP's low [...] 10 TID - Torsemide 20 BID - Dundee 25 - Empag 10 - All cardiac [...] CARDIAC CATH: - 2021: Clean coronaries ###. C Sep 18, 2024 RIGHT HEART CATHETERIZATION Pressures [...] 2.3 Wood units Systemic vascular resistance: 1677 hcnxh-hsm-zk^-5 Oxygen Saturations: Arterial saturation: 95% Mixed venous [...] NYHA Class: IIIb ###. IMAGING: - cMRI ([facility], 07/2023) 1. Concentric LVH with mild-moderate global LV systolic dysfunction. LVEF 38%. 2. Upper limit of normal RV size, and mildly reduced global RV dysfunction< RVEF 39%. 3. LGE pattern suggests an infiltrative cardiomyopathy such as amyloidosis. No T1/T2 maps available. 4. Mild tricuspid regurgitation, no other significant valvular heart disease 5. Small pericardial effusion and pleural effusions. -PYP ([place], 2022) Impression: 1. The above described findings [...] ###. ABIs (Dec 2024) - IMPRESSION:normal resting sourav's and toe pressures bilaterally ###. Blood Bank [...] - 5 ASSESSMENT AND PLAN: In summary, OSMANIDARONGOSIA BOLANOS is a 59 MALE with a history of HFmrEF who presents for advanced heart failure, cardiac amyloid. He is followed by the [facility], and is currently undergoing chemotherapy. Overall, the patient is endorsing NYHA class IIIb symptoms and appears euvolemic on exam today. BARRIERS TO CARE AND CANDIDACY FOR ADVANCED THERAPIES: - No significant barriers identified - He remains in remission and on maintenance stephanie PLAN: #. AL LAMBDA Cardiac amyloid - Follows with Justin Oglesby - Remains on Empag 12.5 - Switch to eplerenone 25 from robin due to breast tenderness. - Continue torsemide 20 BID - Continue midodrine 10 TID - Droxidopa 300 mg TID - Defer to [facility] re: chemo and further management. He [...] with proteinuria - Followed by Renal at [facility] #. HLD - Uninterested in statin #. DISPO - RTC in 3 months Thank you for allowing us to participate in this [facility]. Please do not hesitate to call the HF team with any questions or concerns. /luan/ ABRIL VERGARA MD PHD STAFF PHYSICIAN AND CHIEF OF HEART FAILURE Signed: 03/27/2025 13:10 03/29/2025 ADDENDUM STATUS: COMPLETED Reviewed case in multidisciplinary heart transplant meeting today. - Plan to admit to [facility] for further workup including RHC - Evaluation by surgery for candidacy - Check on HLA - Will call Mr. Ann to arrange. /luan/ ABRIL VERGARA MD PHD STAFF PHYSICIAN AND CHIEF OF HEART FAILURE Signed: 03/29/2025 15:45 /kimberly VERGARA MD PHD STAFF PHYSICIAN AND CHIEF OF HEART FAILURE Signed: 04/03/2025 11:15 ABRIL VERGARA [facility] April 03, 2025 09:09 AM TRANSPLANT SURGERY REFERRAL NOTE: LOCAL TITLE: VACO TRANSPLANT REFERRAL STANDARD TITLE: TRANSPLANT SURGERY REFERRAL NOTE DATE OF NOTE: APRIL 03, 2025@09:09 ENTRY DATE: APRIL 03, 2025@09:10:05 AUTHOR: HENNY MARLEY EXP COSIGNER: URGENCY: STATUS: COMPLETED This Referral serves to document the status of this patient at a particular moment in time in order to facilitate clinical review for the purpose of an organ transplant evaluation. The information contained in this note is a summarization of information contained elsewhere in the patient record and does not constitute new clinical information. The purpose of this note is to present a clinical review board with a standard data set. If you are not a member of the Organ Transplant clinical review board, please reference the original documentation in the chart for any clinical decisions, as the original information contained in this document is subject to change and/or updates that will not be reflected here. TRANSPLANT REQUEST FORM DEMOGRAPHICS Patient Primary [facility] where patient is enrolled (City, State): [place], [place] Name: LAURAGOSIA Holguin Social Security: [id number] Home Telephone Number: Work Telephone Number: Cellular Telephone Number: Address: [address] [place], [place] [address] Primary Support Person Name: Mandie Ann (Relationship): Work Telephone Number: Cellular Telephone Number: Address (if different than patient's): Secondary Support Person Name: (Relationship): Telephone Number: Work Telephone Number: Cellular Telephone Number: Address (if different than patient's): Check here to view Eligibility note PATIENT INFORMATION: Date of : Apr Age: 59 Height: 72 in [182.9 cm] (09/18/2024 06:42) Weight: 179.6 lb [81.47 kg] (03/27/2025 08:15) BMI: 24.4 Gender: MALE Patient Status: Outpatient Retransplant: No Is patient ambulatory? Yes Specific [facility] Transplant [facility] Requested: No Preference Primary Diagnosis: AL amyloidosis Other Diagnosis: Nonischemic cardiomyopathy PROBLEM LIST 1) Hypertension 2) Gout 3) Back pain 4) Goiter 5) Pulmonary fibrosis 6) AL amyloidosis 7) Exposure to potentially hazardous substance 8) HFrEF - heart failure with reduced ejection fraction SOCIAL HISTORY 1. History of Alcohol Use? No 2. History of Substance Use? No 3. History of Tobacco Use? No PCP:ADAMA CHACON Referring Physician's Notes: (e.g., specific Transplant Center requested by patient, timing of evaluation - critical, urgent, stable): Eligibility Information: Must be completed and signed by Chief, Health Administration Service (HAS), or equivalent, thereby certifying patient is eligible for care and travel. A hard copy of patient's eligibility information MUST be attached. Enrollment Priority Group: Service Connected: Yes ___ No ___ Care Eligible: Yes ___ No ___ Travel Eligible: Yes ___ No ___ Name of HAS official, including title: SIGNATURE OF HAS OFFICIAL: Phone Number: REQUIRED DOCUMENTS * The first five documents are required in all transplant referrals. PHYSICIAN SUMMARY FOR TRANSPLANT REPORTS AND SUMMARIES VA STAFF PHYSICIAN ASSESSMENT FOR TRANSPLANT CANDIDATES Heart All transplant referrals require a current and concise summary from the referring [place] staff physician introducing their patient to the [place] Central Office physician review board. This assessment should include the following: I. INTRODUCTION OF PATIENT Mr. Ann is a 59 y/o gentleman with late diagnosis of AL amyloid. He has had a remarkable course with appropriate Stephanie-CyborD treatment and is now in hematologic remission. Unfortunately, given his late diagnosis, he has significant cardiac involvement with low output failure, and restrictive myopathy. In addition, he does suffer from autonomic dysfunction, but this has been very well controlled on droxidopa and midodrine. He has been following with me for the past 2.5 years, as well as my partners at [facility] in cardio-oncology, heme-onc. He is an exceptional transplant candidate from a medication compliance / social support / overall patient. I am guardedly optimistic that HT will help his HF symptoms and make him feel significantly better (currently NYHA IIIb/IV symptoms). II. PRIMARY DIAGNOSIS ASSESSMENT Patient has biopsy proven AL amyloid, and is now in complete hematologic remission after Stephanie-CyborD treatment. We would discuss with oncology, but likely continue maintenance Stephanie after transplant vs. watch for relapse and consider SCT if needed after OHT. III. BRIEF MEDICAL EXAMINATION Gen: NAD, thin white male CV; RRR Abd: Soft, NT, ND Ext: 1+ pitting edema. IV. MEDICAL COMORBIDITIES He has no significant medical comborbidities that would preclude transplant other than: - Mild CKD - Autonomic dysfunction. V. BRIEF SURGICAL HISTORY Please see note. . 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 VII. OVERALL ASSESSMENT AND RECOMMENDATION I think he is a LOW risk and exceptional candidate for OHT. He has excellent social support, very high medical literacy, and a very complaint patient who has had to juggle visits between myself, and the University with multiple physicians. VIII. POINT OF CONTACT INFORMATION Abril Vergara MD, PhD Chief of HF, [facility]. [phone] MOST RECENT NOTE FROM MY CLINIC VIST IN MARCH: [place] ST ADVANCED HEART FAILURE SERVICE: FOLLOW-UP VISIT NOTE PRINCIPAL AND SECONDARY DIAGNOSES: 1. Cardiac amyloid, AL / Lambda subtype - Followd by Aris Chong and Justin Schaffer - Started on Stephanie-CyBorD (11/12) - Seen by [facility] nephrology for kidney involvement (proteinuria) - Seen by [facility] GI for likely GI involvement (Sammi). 2. NIC - [facility] with clean cors 3. Atrial fibrillation - On Eliquis A/C 4. HTN 5. Low back pain 6. Gout 7. Lung nodules / pleural thickening of unknown origin. 8. Bilateral adrenal adenomas. CARE TEAM: 1. ADAMA CHACON B INTERVAL HISTORY: We had the pleasure of seeing GOSIA ANN in the [facility] Advanced Heart Failure Program. As you know, GOSIA ANN is a 59 year old WHITE MALE with PMH notable for HFmrEF, biopsy proven cardiac amyloid (AL), with cardiac involvement proven on EMB. He is comanaged by the [facility] (Cards, GI, Heme-Onc, Renal). He follows with Justin Flowers, and has undergone treatment with Stephanie-Cybor D, and has been tolerating this treatment well except for some nausea. 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 He notes he continues to have lower [...] Notes he's having some breast tenderness from robin. Continues with rare dizziness, LH. BP's low [...] 10 TID - Torsemide 20 BID - Robin 25 - Empag 10 - All cardiac [...] 2.3 Wood units Systemic vascular resistance: 1677 wijwd-eij-yc^-5 Oxygen Saturations: Arterial saturation: 95% Mixed venous [...] NYHA Class: IIIb ###. IMAGING: - cMRI ([facility], 07/2023) 1. Concentric LVH with mild-moderate global LV systolic dysfunction. LVEF 38%. 2. Upper limit of normal RV size, and mildly reduced global RV dysfunction< RVEF 39%. 3. LGE pattern suggests an infiltrative cardiomyopathy such as amyloidosis. No T1/T2 maps available. 4. Mild tricuspid regurgitation, no other significant valvular heart disease 5. Small pericardial effusion and pleural effusions. -PYP ([place], 2022) Impression: 1. The above described findings [...] ###. ABIs (Dec 2024) - IMPRESSION:normal resting sourav's and toe pressures bilaterally ###. Blood Bank [...] 5 ASSESSMENT AND PLAN: In summary, GOSIA ANN is a 59 MALE with a history of HFmrEF who presents for advanced heart failure, cardiac amyloid. He is followed by the [facility], and is currently undergoing chemotherapy. Overall, the patient is endorsing NYHA class IIIb symptoms and appears euvolemic on exam today. BARRIERS TO CARE AND CANDIDACY FOR ADVANCED THERAPIES: - No significant barriers identified - He remains in remission and on maintenance stephanie PLAN: #. AL LAMBDA Cardiac amyloid - Follows with Justin Oglesby - Remains on Empag 12.5 - Switch to eplerenone 25 from robin due to breast tenderness. - Continue torsemide 20 BID - Continue midodrine 10 TID - Droxidopa 300 mg TID - Defer to [facility] re: chemo and further management. He [...] with proteinuria - Followed by Renal at [facility] #. HLD - Uninterested in statin #. DISPO - RTC in 3 months Thank you for allowing us to participate in this [facility]. Please do not hesitate to call the HF team with any questions or concerns. /es/ ABRIL VERGARA MD PHD STAFF PHYSICIAN AND CHIEF OF HEART FAILURE Signed: 03/27/2025 13:10 03/29/2025 ADDENDUM STATUS: COMPLETED Reviewed case in multidisciplinary heart transplant meeting today. - Plan to admit to [facility] for further workup including RHC - Evaluation by surgery for candidacy - Check on HLA - Will call Mr. Ann to arrange. /luan/ ABRIL VERGARA MD PHD STAFF PHYSICIAN AND CHIEF OF HEART FAILURE Signed: 03/29/2025 15:45 /luan/ ABRIL VERGARA MD PHD STAFF PHYSICIAN AND CHIEF OF HEART FAILURE Signed: 04/03/2025 11:15 ASSESSMENT FOR TRANSPLANT 01/29/2025 08:42 Local Title: MENTAL HEALTH ASSESSMENT FOR TRANSPLANT Standard Title: MENTAL HEALTH TRANSPLANT CANDIDATE EVALUATION NOTE MENTAL HEALTH ASSESSMENT FOR TRANSPLANT CANDIDATES: Heart Date of Evaluation: 01/29/25 Referring [facility]: [facility] Time with Patient: 90 min Code: 04891 Mental Health Provider Completing This Evaluation/Phone Number: Apurva Canales, Ph.D. [phone], ext. [phone] Mental Health Machine Quilt Stuffer (If Any)/Phone Number: N/A INFORMED CONSENT: At the outset of appointment, [place] and provider collaboratively discussed the purpose of this evaluation, the limits of confidentiality, as well as the potential risk, benefits, and complications of participating in this voluntary evaluation. The expressed understanding and consented to participate in services. --- [place] was notified of right to decline Telehealth services and eligibility for other options. [place] was offered a video appointment via [place] [employer] or alternate video platform. declined video option at this time. consented to complete services via telephone. Telephone appointment information: The following items were reviewed: - The nature of telehealth, its benefits, and risks. - Confidentiality and its limits. - The importance of having a confidential location for the service. - The emergency plan. Confirmed that is in a secure location and it is appropriate to conduct a telephone appointment. Confirmed [place]'s Non-[facility] location for this appointment: Home Address: [x] [address] [place] [address] [address] [place], [place] [address] [] Other: Phone: [x] [] Other: [x] Cell [] Landline Emergency Contact: Name: up to date in CPRS Phone: up to date in CPRS Others were present for this telephone appointment (caregiver, family member) Details: Katlin Ann () EMERGENCY PLAN In the event of an emergency, the or family will call emergency services, if capable. Teleprovider will remain on the phone until emergency response arrives and handoff to emergency services is complete. If is unable to make emergency call, Teleprovider is to call the [employer] service at and ask to be connected to emergency services for the 's location. Crisis Hotline: 958.394.7083 and push 1 I. IDENTIFYING INFORMATION: PATIENT: GOSIA ANN AGE: 59 RACE: WHITE DATE OF : Apr SERVICE CONNECTION: Service Connected: Yes (100%) DS - Disabilities Eligibility: SERVICE CONNECTED 50% to 100% VERIFIED Total S/C %: 100 FACIAL SCARS 10% S/C ARTERIOSCLEROTIC HEART DISEASE 100% S/C TINNITUS 10% S/C MIGRAINE HEADACHES 0% S/C 1) Hypertension 2) Gout 3) Back pain 4) Goiter 5) Pulmonary fibrosis 6) AL amyloidosis 7) Exposure to potentially hazardous substance 8) HFrEF - heart failure with reduced ejection fraction Potential Living Donor: NO Name/Relationship of Potential Donor: N/A Name(s)/Relationship of Caregiver and Backup(s): Katlin Ann (), - home. Backup caregiver is Rosie Verdin ([id number]), . *Note: [place] was accompanied by his today with his verbal permission. II. HISTORY OF PRESENT MEDICAL ILLNESS: Mr. Gosia Ann is a 59-year-old currently being evaluated as a potential heart transplant candidate. [place] was diagnosed with AL amyloidosis and subsequent heart failure with reduced ejection fraction in Oct 2023. He stated that his goal is to live longer, to have a full recovery, and to walk again (I used to walk 1 hour daily every day). Corky reports his overall quality of life as adequate and stated that engagement in enjoyable activities is now limited d/t shortness of breath. He stated that he is motivated for transplant, as a means to extend longevity, to improve energy, and to increase quality of life. Corky is aware that the transplant may either take place in [place], [place] ([facility]) or take place locally at [facility]. Corky is aware that hospitalization for transplant can be of extended duration. Corky stated that his support person, Mrs. Ann, will be available to accompany him for the duration of his stay. Corky reported good basic understanding of transplant risk factors including rejection, infection, and . He reported understanding that placement on the transplant list does not guarantee receipt of a heart and that wait times can be of long duration. reported understanding of the need to take immunosuppressant medications following surgery and methods to mitigate risk of infection. III. PAST MEDICAL HISTORY: [facility]: Yes Summary of outside treatment: Yes - Dr. Raegan Kaplan (AL treatment) and Dr. Erlin Chong (publicity expert) Review of the medical record indicates past medical history significant for the following Active Problems: MEDICAL PROBLEMS: 1) Hypertension 2) Gout 3) Back pain 4) Goiter 5) Pulmonary fibrosis 6) AL amyloidosis 7) Exposure to potentially hazardous substance 8) HFrEF - heart failure with reduced ejection fraction denied any history of traumatic brain injury. The [place] also reported major surgery for partial thyroid removal in 1999 at [facility] and gall bladder removed at [facility] in [place], [place], 2022. IV. CURRENT MEDICATIONS: Active and Recently Outpatient Medications (including Supplies): Active Outpatient Medications Status Active Outpatient Medications (including Supplies): Active Outpatient Medications Status 1) CHLORHEXIDINE GLUCONATE 0.12% MOUTHWASH SWISH AND SPIT 15 ML ACTIVE BY MOUTH TWICE A DAY SWISH IN MOUTH UNDILUTED FOR 30 SECONDS THEN SPIT IN SINK. AVOID CONTACT WITH EYES. Indication: FOR PERIODONTITIS 2) DROXIDOPA 300MG ORAL CAP TAKE ONE CAPSULE BY MOUTH THREE ACTIVE TIMES A DAY Indication: FOR HYPOTENSION 3) NUTRITION SUPL ENSURE PLUS/STRWBERRY LIQ TAKE 1 CANFUL BY ACTIVE MOUTH TWICE A DAY Indication: FOR NUTRITION/DIETARY SUPPLEMENTATION 4) SODIUM FLUORIDE 1.1% TOOTHPASTE USE DIRECTED BY [...] DAY AND 10 BY ACTIVE MOUTH NIGHTLY 13 Total Medications Corky denied regular use of supplements or alternative medicines to help address AL amyloidosis or secondary heart failure. V. FAMILY MEDICAL HISTORY: Corky denied a significant history of AL amyloidosis in his family. He endorsed a history of heart attack (grandmother). . SOCIAL HISTORY: Corky stated that he was born and raised in [place], [place] and raised in [place], [place] with his father (who was in and out of shelter), and half-siblings (one full brother, one half- brother, and three half-sisters; Corky is the oldest. His mother passed when he was 10 years old. He described his childhood as, Unusual. I went to 27 different schools by the time I got to 9th grade. I got my own apartment when I was 14. I had to provide for myself and for my little brother. Corky described his father as, He never grew up. He has the mind of a 11 year old. Corky denied a history of childhood physical, sexual, and emotional abuse. Corky completed high school with no history of learning problems. Corky also completed one semester college. Two years after high school graduation, Corky joined the [employer], where he served from [id number]. 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 He reported exposure to criterion A stressors today; however, he denied being bothered by these experiences today. Corky was honorably discharged with highest rank at discharge: E-6. Upon discharge from , Corky has been employed at [employer] for 18 years; he plans to retire in 2 years, if his health will allow. Corky stated that he is currently financially supported through his employment, his 's employment, and his [place]. He denied any current financial stressors, though he was reminded of social work services. Corky lives in his own home with his and [id number]. He denied any anticipated changes to his housing situation throughout the transplant process. He stated that his will be available to assist with any care needs after he returns home from transplant. He denies any current psychosocial stressors. He reports his , friends, and his manager enrollment, as his closest social supports. Corky is currently to his of 30 years, Marlin. They have one daughter, 28 years old, who resides in [place], [place]. He has no grandchildren. He reported positive relationships with his family. He noted that he is close with his brother, and he continues to speak to his father over the phone. VII. LEGAL HISTORY: Corky denied any current or pending legal issues. He denied any history of incarcerations or DUI's. VIII. MENTAL HEALTH HISTORY: Relevant Family Mental Health History: Corky denied any known mental health history in his family, including his father. Mental Health History: denied any significant mental health concerns. denied any previous experiences with psychology or psychiatry. He denied any current or past psychotropic medication prescriptions. He denied any previous inpatient psychiatric hospitalizations. [place] denied any symptoms of depression with exception of difficulty sleeping, which he attributes directly to shortness of breath d/t heart failure. He denied any current or recent experience of anhedonia or guilt; I feel bad I can't help my more, but I know that's not my fault. He denied any recent changes to appetite. He denied any issues with concentration or psychomotor changes. He denied any bothersome symptoms of anxiety, angelic, or panic attacks. described his mood as good. [place] reported frustration and manageable situational anxiety related to current health stressors and impact on quality of life. He stated that he dank with stress through talking to his , going outside, going for a drive, and watching the [employer] Show. Risk Assessment: denies any current suicidal ideation, plan, or intent. denies any previous history of suicide attempts. Corky readily agreed to access emergency services and was provided with the 's Crisis Line as a future resource. Provided the Crisis Line as a matter of general information. Risk Factors: co-morbid health (new dx/worsening symptoms), male, white Protective factors: positive social support, relationship with/responsibility to family, spirituality/christian beliefs (Uatsdin/ Voodoo), life satisfaction, positive coping skills, futuristic speech, help-seeking behavior. Corky was asked directly, and he denied any active or current suicidal or homicidal ideation, plan, or intent. Given denial of SI/HI and futuristic speech, Corky does not appear to be at imminent risk of harm to self/others and is considered sustainable as an outpatient. Homicidal: Corky denies any current HI or aggressive urges. MEASUREMENT-BASED CARE: PHQ-9 = score of 5, indicative of minimal depressive sx as reported sleep issues d/t health concern, not mental health sx MELONY-7 = score of 2, indicative of absence of clinical anxiety dx IX. SUBSTANCE USE HISTORY: Alcohol: Corky denied regular use of alcohol. Reported his last beverage (1 beer) was about 2 weeks ago; he has 1 or 2 beers every 3-4 months. Reported he used to drink 1 six-pack of beer per week prior to diagnosis. He clearly denied any history of being intoxicated ever. He denied any history of social or occupational difficulties related to alcohol use. He denied any history of participation in substance use treatment. -- Drugs: Corky denied current or historical use of illicit drugs, including marijuana. He reported understanding and willingess to be screened for drugs periodically. -- Tobacco: denied current or historical nicotine use, including cigarettes, cigars, and chewing tobacco. -- Behavioral (e.g., gambling, compulsive sexual behavior, eating, pornography): [place] denied a history of behavioral addiction concerns. X. COMPLIANCE: Corky reports fair to good adherence to medications. He reported keeping his pills in a bag, which he refills himself, to manage his medications. He stated taking his medications has become part of his daily routine, and he was able to describe the purpose of each of his medications. He also reported good adherence to medical appointments via use of [place] reminder letters, [place] reminder text messages, and a physical calendar in his home. Brief chart review corroborates his report; Corky has 0 no shows in past six months. XI. OTHER RELEVANT INFORMATION: N/A XII. COLLATERAL INTERVIEW INFORMATION: The [place]'s collateral support, Marlin Ann, was available at the time of the interview. She stated she is currently employed but denied any caregiving concerns due to her employment. She denied having any dependents in the home. She denied any mental health issues, including substance abuse concerns. She already attended appointment with Transplant Social Work. XIII. MENTAL STATUS EXAM: The answered the telephone on time for the appointment accompanied by his . Cannot comment on age, hygiene, or eye contact d/t limitations of telephone modality. He was pleasant and easy to engage throughout the interview. Speech was normal in rate and volume. Thought processes were linear and goal oriented. Thought content was appropriate. Attention and concentration were adequate to the demands of the interview. Fund of knowledge appeared good. Insight and judgment appeared good. The denied any subjective memory complaints. XIV. ASSESSMENT: has several assets going into the transplant process, including a stable work history prior to his disability, no significant psychiatric disturbances, and stable support network. His understanding of the transplant process is [id number] and motivation to continue with this procedure is high. XV. DIAGNOSES: Awaiting Organ Transplant XVI. RECOMMENDATIONS/CONTRAINDICA TIONS: No psychological contraindications to transplant were identified with this . The following areas are recommended to be addressed: 1. The denied any current or historical mental health concerns. [place] informed that mental health sx may arise throughout heart transplant process. Informed of [facility] psychology service. [place] voiced understanding and declined any needs today. 2. endorsed difficulty sleeping d/t shortness of breath secondary to heart failure. Encouraged him to sleep upright. Tagging HENNY MARLEY to please follow- up to discuss ways to manage sleep better, if you deem necessary. Signed by: /es/ Georgiana Canales, Ph.D. Psychologist 01/30/2025 14:38 Digital Pager: [phone] Receipt Acknowledged by: /es/ Henny Marley PA-C Cardiology Physician Senior Sharepoint Developer 01/30/2025 15:17 Digital Pager: [phone] /es/ ABRIL VERGARA MD PHD STAFF PHYSICIAN AND CHIEF OF HEART FAILURE 01/31/2025 11:36 Analog Pager: [phone] Digital Pager: [phone] SOCIAL WORK ASSESSMENT FOR TRANSPLANT 01/15/2025 14:49 Local Title: CLINICAL SOCIAL WORK EVALUATION FOR TRANSPLANT CANDIDATES Standard Title: SOCIAL WORK ASSESSMENT FOR TRANSPLANT CANDIDATE NOTE SOCIAL WORK ASSESSMENT FOR TRANSPLANT CANDIDATES Heart Transplant DATE OF EVALUATION: Dec REFERRING [facility]: Dr. Riley Vergara MD/Carlos WHITT Seasonal Package Handler ADDRESS: [address] [place] [address]. CITY/[place] [address] ELECTRIC ACCOUNTING MACHINE OPERATOR COMPLETING THIS EVALUATION: Meghan Ge PHONE: [phone]. [phone] I. IDENTIFYING INFORMATION NAME: GOSIA ANN SSN: [id number] CURRENT ADDRESS: [address] [place] [id number] PHONE (HOME): : 1965Apr AGE: 59 HOUSING: [place] resides with his in a single family home in [place], [place] PATIENT LIVES WITH: He lives with his Zeynep Terrazas) and his sister in law, Rosie Verdin. NAME OF SUPPORT PERSON PRESENT AT TIME OF THIS EVALUATION: Zeynep Terrazas)/) COMMENTS/CONCERNS: --- HISTORY: [place] [id number] DUTY STATION(S): [place], [place], [place], [place], [place], and [place] DISABILITY: 100% [place] CONDITION(S): Facial Scars, Tinnitus, Migraine Headache, Arteriosclerotic heart failure II. 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 FINANCIAL RESOURCES MONTHLY INCOME: $ 9,000.00 DEBTS: $ 2,000.00 POTENTIAL SOURCES OF ADDITIONAL INCOME: receives 100% service connection [facility] HEALTH INSURANCE COVERAGE: insurance IV. MARITAL/FAMILY HISTORY SIGNIFICANT OTHER: Zeynep Ann, , 30 years PARENTS: n/a SIBLINGS: Zeynep's sister, Rosie, lives with them. 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 ADDITIONAL SUPPORT PERSON: NAME: Rosie Devlin ([id number]) ADDRESS: same AGE: unknown PHONE (HOME): LENGTH [...] Directive in CPRS WHERE ARE THEY LOCATED? [place] and home ANY POTENTIAL LIVING DONORS? n/a [...] process with any providers at this point. ELECTRIC ACCOUNTING MACHINE OPERATOR'S REVIEW OF COMPLIANCE HISTORY: APPOINTMENTS: No no [...] Robin 25 * - Torsemide 20mg qDay DIET: [...] NO LEGAL ISSUES OR HISTORY WITH DUIs PRISON/FCI TIME (CURRENT/PENDING): NO HISTORY WITH PRISON/FCI GAMBLING ISSUES: NO HISTORY OF GAMBLING OTHER: --- X. SOCIAL ACTIVITIES HOBBIES: dancing, concerts, ball games CATHOLIC PREFERENCE/SPIRITUALITY: Restorationist with no limits on medical treatments. INTERPERSONAL RELATIONSHIPS (Group Activities, Friendships, Co-Workers): , friends from work XI. ASSESSMENT/PLAN ELECTRIC ACCOUNTING MACHINE OPERATOR'S OVERALL ASSESSMENT: FURTHER TREATMENT NEEDS: Gosia is interested in learning more about the process of the heart transplant process, and he is 100% both motivated in becoming a transplant candidate. RECOMMENDATIONS: As a result of both, interviewing and his , this social sciences research scientist recommends that Gosia Ann becomes a heart transplant candidate. ASSESSMENT-PATIENT'S CHEMICAL [...] family during his transplant process and recovery. Signed by: /es/ Meghan Ge LCSW PAEDIATRIC THORACIC PHYSICIAN, Specialty Medicine 01/17/2025 11:13 Receipt Acknowledged by: /es/ Henny Marley PA-C Cardiology Physician Senior Sharepoint Developer 01/17/2025 12:04 Digital Pager: [phone] /es/ ABRIL VERGARA MD PHD STAFF PHYSICIAN AND CHIEF OF HEART FAILURE 01/17/2025 13:03 Analog Pager: [phone] Digital Pager: [phone] DENTAL ASSESSMENT FOR TRANSPLANT Patient Name: GOSIA ANN, : 1965, Age: 59 Visit: S: Jan 25, 2025@07:30 LUIS-DENTAL DMD2 PROC. Primary PCE Diagnosis: Z01.20 (Encounter for dental examination and cleaning without abnormal findings). Dental Category: 15-OPC, Class IV. Treatment Status: Active. Completed Care: (D0150) COMPREHENSVE ORAL EVALUATION. DX: Z01.20 Encounter for Dental Examination and Cleaning without Abnormal Findings (D0330) DENTAL PANORAMIC IMAGE. DX: Z01.20 Encounter for Dental Examination and Cleaning without Abnormal Findings (D0210) INTRAORAL FULL IMAGE SERIES. DX: Z01.20 Encounter for Dental Examination and Cleaning without Abnormal Findings Presentation/Chief Complaint: Patient presents for comprehensive oral evaluation Patient has no dental complaints Vital Signs: Vital signs not obtained Past Medical History and Medications: Patient is new to clinic Active Problems: Hypertension (SCT 65465723) Gout (SCT 40774604) Back pain (SCT 294253812) Goiter (SCT 2738660) Pulmonary fibrosis (SCT 42926548) AL amyloidosis ([facility] [id number]) Exposure to potentially hazardous substance ([facility] [id number]) HFrEF - heart failure with reduced ejection fraction ([facility] [id number]) Active Medications: ---- Outpatient Medication ---- DROXIDOPA 300MG ORAL CAP - (ACTIVE) NUTRITION SUPL ENSURE PLUS/STRWBERRY LIQ - (ACTIVE) PANTOPRAZOLE NA 40MG EC TAB - (ACTIVE) EMPAGLIFLOZIN TAB,ORAL - (ACTIVE) MIDODRINE HCL 10MG TAB - (ACTIVE) SPIRONOLACTONE 25MG TAB - (ACTIVE) ACYCLOVIR 400MG TAB - (ACTIVE) PROCHLORPERAZINE MALEATE 10MG TAB - (ACTIVE) POLYETHYLENE GLYCOL 3350 ORAL PWDR - (ACTIVE) APIXABAN 5MG TAB - (ACTIVE) TORSEMIDE TAB - (ACTIVE) Active Allergies: No Known Allergies Social History: Patient denies history of alcohol, tobacco, and drug use. Intraoral and Extraoral Screening Exam Findings: 01/25/2025 Head and neck assessment with oral cancer screening is negative: no apparent pathology noted. Radiographic Findings: Radiographic findings consistent with charted entries No radiographic caries noted Oral Examination: Oral Health Assessment Findings: Plaque Index: 1 - Slight Xerostomia: 1 - Slight Caries Risk: 1 - Low Oral Hygiene: 1 - Good Dental Examination: Missing Teeth: 1, 14, 16, 17, 32. Chipped: 22(I), 23(I), 24(I), 25(I), 26(I), 27(I). Tipped: 12(L). Rotated: 20(Cw), 29(Cw). Existing Dental Restorations: Restored: 6(DL) Resin, 7(MIFL) Resin, 8(MFDL) Resin, 9(MFDL) Resin, 12(MO) Resin, 18(O) Resin, 5(MO) Resin. Crowns: 3 PFM. Tooth Mobility Noted: #19 - Class I mobile Periodontal Screening/Recording (PSR): 4-3-4 - - - 4-3-4 Periodontal Assessment: Chronic Moderate Generalized Periodontitis Chronic Severe Localized Periodontitis Periodontal Charting (This is textual display of periodontal findings. Please see DRM Plus for perio charting graphic.) - - - - - - - - - - - - - - - - - - - - - - - - - - - - - - - - - - - - - - -~- -~- -~- -~- -~- -~- -~- -~- -~- -~- -~- -~- -~- -~- -~- -~- TOOTH 32 31 30 29 28 27 26 25 24 23 22 21 20 19 18 17 - - - -~- -~- -~- -~- -~- -~- -~- -~- -~- -~- -~- -~- -~- -~- -~- -~- MOB 1 - - - - - - - - - - - - - - - - - - - - - - - - - - - - - - - - - - - OREILLY: B=Bleeding b=Delayed Bleeding S=Suppuration *=Pocket/MGJ > 9 +=FGM coronal to CEJ (Periodontal chart may be a composite of entries from different dates) Parafunctional Habits: History: Patient reports the following habits: Bruxing Clenching TMJ Findings: History: Patient reports no symptoms associated with TMJ. Clinical Findings: Popping/Clicking: None Crepitus: None Pain to manipulation: None Deviation upon opening: None Occlusal Findings: Normal Mandibular relationship Anterior with bilateral posterior Cross bite (4)mm Overbite (3)mm Overjet Assessment/Plan: Corky presents for Dental Consultation in conjunction with request for DENTAL CLEARANCE prior to a planned medical surgery (heart transplant). Corky qualifies for CLASS IV Dental Eligibility and would like to be seen here at [facility] for his comprehensive dental care. Therefore a full exam was completed today. Medical history, allergy assessment, and medications reviewed with patient. Corky is currently under the care of a medical team and is medically optimized for dental treatment. No precautions or contraindications identified. Corky took all medications like normal today and is feeling well today. I explained to the [place] the purpose of today's dental visit and the goals of care, including identifying any acute treatment needs or high-risk conditions for development of acute odontogenic infection or need for invasive dental procedures during the next 6- 12mos. The patient understands that when identified, these high-risk or acute conditions require treatment prior to obtaining Dental Clearance, which may interfere with the patient's medical care if delayed; corky understood. I educated the patient on the oral- systemic connection and answered questions to pt's satisfaction. Panoramic radiograph and limited FMX taken and reviewed. Though no caries were detected there is generalized moderate to severe bone loss. The reports that he goes to the dentist for cleanings every 6 months. Gums were not bleeding and there was only slight Class I mobility on #19. #13-D is not clinically carious?it is more of a defect in the tooth. Due to the amount of bone loss present, it would be best to have his hygiene care be under a Plaster Whittler and see us annually for a cleaning, with the goal of alternating with Perio in a year. The [place] was slightly hesitant due to a poor experience with osseous surgery five years ago but I encouraged him to discuss this with the Plaster Whittler he will see and determine what is best. He agreed. CITC consult to be placed. The oral soft tissue exam showed no pathology. Sterilized RME internal indicators/integrators were reviewed and confirmed as sterilized. All questions answered to 's satisfaction. left pleased. Patient has FULL DENTAL CLEARANCE at this time. Please do not hesitate to contact the Dental Service with any questions that you may have. Senior Sharepoint Developer: Nathalie Ruff Final treatment plan to be completed at a later time Patient will [facility]. Disposition: Next visit: recall ACTIVE MEDICATIONS Active Outpatient Medications (including Supplies): Active Outpatient Medications Status 1) CHLORHEXIDINE GLUCONATE 0.12% MOUTHWASH SWISH AND SPIT 15 ML ACTIVE BY MOUTH TWICE A DAY SWISH IN MOUTH UNDILUTED FOR 30 SECONDS THEN SPIT IN SINK. AVOID CONTACT WITH EYES. Indication: FOR PERIODONTITIS 2) DROXIDOPA 300MG ORAL CAP TAKE ONE CAPSULE BY MOUTH THREE ACTIVE TIMES A DAY Indication: FOR HYPOTENSION 3) EPLERENONE 50MG TAB TAKE ONE-HALF TABLET BY MOUTH EVERY ACTIVE MORNING Indication: FOR HEART FAILURE 4) SODIUM FLUORIDE 1.1% TOOTHPASTE USE DIRECTED BY [...] EVERY ACTIVE 6 HOURS NEEDED 8) Non-VA TORSEMIDE TAB 20MG BY MOUTH ONCE A DAY AND 10 BY ACTIVE MOUTH NIGHTLY 12 Total Medications CLINICAL INFORMATION MALE PATIENT PSA Result: PROST. SPECIFIC AG.(PB-STL) 0.347 ng/mL 02/12/2025 08:24 PROST. SPECIFIC AG.(PB-STL) 0.347 ng/mL 02/12/2025 08:24 CHEST X-RAY NADIAGOSAI KENTRELL [id number] -1965 M Exm Date: FEB 10, 2024@18:14 Req Phys: SELIN ESCOBAR Pat Loc: OP 04-03-2025@09:35 Img Loc: -MAIN RADIOLOGY SUITE Service: [facility], [facility] [facility] [place] [place] [address] (Case [id number] COMPLETE) CHEST PORTABLE (RAD Detailed) CPT:12964 Proc Modifiers : Portable Reason for Study: heart failure exacerbation Clinical History: Report Status: Verified Date Reported: FEB 10, 2024 Date Verified: FEB 10, 2024 Knocker Out E-Sig: Report: CHEST PORTABLE Clinical History: heart failure exacerbation. Technique: AP view of the chest. Comparison: CT chest 03/01/2023 Findings: The heart is in the upper limits of normal in size versus slightly enlarged. There are interval, bilateral, right greater than left, pleural effusions with or without adjacent atelectasis or consolidation. There are persistent biapical interstitial opacities consistent with an underlying interstitial lung disease. There is right midlung fissural thickening. That was seen on the previous CT scan. Impression: 1. Interval bilateral pleural effusions. READING PHYSICIAN: Thomas Schmitt MD -[id number] 02/10/2024 20:40 EDT [facility] [phone] (For Medical Practitioner Use Only) Attention Patients / Veterans: If you have questions or concerns about these test results, please contact your ordering provider or primary care team. EKG 09/18/2024 14:11 Local Title: EKG CONSULT ST Standard Title: CARDIOLOGY DIAGNOSTIC STUDY CONSULT AUTHOR: CLINICAL,DEVICE PROXY SERVICE DOCUMENT IN [facility] IMAGING SEE FULL REPORT IN VISTA IMAGING SIGNATURE NOT REQUIRED SEE SIGNATURE IN VISTA IMAGING ([place] EKG) AUTO-INSTRUMENT DIAGNOSIS Procedure: [id number] 12 Lead ECG Release Status: Released Off-Line Verified Date Verified: Sep 18, 2024@14:10:56 99606.2 Ventricular Rate: 86 BPM 04644.3 Atrial Rate: 86 BPM 79817.4 P-R Interval: 228 ms 07048.5 QRS Duration: 98 ms 62299.6 Q-T Interval: 364 ms 69604 QTC Calculation(Bazett)435 ms 87920.12 Calculated P [place]: 73 degrees 66489.13 Calculated R [place]: 185 degrees 48133.14 Calculated T [place]: 3 degrees Sinus rhythm with 1st degree [...] Administrative Closure: 09/18/2024 by: CLINICAL,DEVICE PROXY SERVICE < THE ABOVE NOTE IS UNSIGNED > - DRAFT COPY * DRAFT COPY * DRAFT COPY * DRAFT COPY * DRAFT COPY * DRAFT COPY - PFT Name: GOSIA ANN ID: [id number] BSA: 2.04 Date: 01/17/2025 Tech: COLLETTE MARTIN Height: 72.00 Age: 59 PF Predicted: Default Doctor: JONATHAN LEE Weight: 180.00 Sex: Male Race: <Other> Diagnosis: Dyspnea: After any exertion Cough: Productive Wheeze: Rare Tbco Prod: Never Smoked Yrs Smk: Pks/Day: Yrs Quit: Medications: Pre Test Comments: Post Test Comments: resting hr 95 spo2 95% on ra pt given 4 puffs alb post test hr 94 spo2 98% on ra Pre-Bronch Post-Bronch Actual Pred %Pred Actual %Pred %Chng ---- SPIROMETRY ---- FVC (L) 2.85 5.11 55 2.90 56 +1 FEV1 (L) 2.34 3.87 60 2.51 64 +7 FEV1/FVC (%) 82 76 108 86 114 +5 FEF 25% (L/sec) 7.38 7.40 99 8.13 109 +10 FEF 75% (L/sec) 0.88 1.42 61 1.28 90 +45 FEF 25-75% (L/sec) 2.37 3.16 74 3.14 99 +32 FEF Max (L/sec) 7.99 9.68 82 8.22 84 +2 FIVC (L) 2.92 2.98 +1 FIF Max (L/sec) 3.79 5.30 +39 ---- LUNG VOLUMES ---- SVC (L) 2.97 5.11 58 IC (L) 2.13 3.52 60 ERV (L) 0.80 1.60 49 TGV (L) 2.35 3.88 60 RV (Pleth) (L) 1.51 2.35 64 TLC (Pleth) (L) 4.48 7.40 60 RV/TLC (Pleth) (%) 34 33 103 Trapped Gas (L) ---- DIFFUSION ---- DLCOunc (ml/min/mmHg) 23.14 35.03 66 DLCOcor (ml/min/mmHg) 35.03 DL/VA (ml/min/mmHg/L) 5.32 4.73 112 VA (L) 4.35 7.40 58 SPIROMETRY & FLOW-VOLUME CURVE: The proportionate reduction in FEV1 and FVC suggests a restrictive abnormality. Following administration of inhaled bronchodilator, there is no significant response. LUNG VOLUMES: The reduction in total lung capacity indicates a moderate restrictive abnormality. DLCO: The reduced diffusing capacity indicates a mild loss of functional alveolar capillary surface. OXYGENATION: O2 saturation is normal by pulse oximetry at rest. 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 Compared to the previous study on 02/09/2023, FVC and FEV1 has not [facility] [address] [place] [address] Name: GOSIA ANN ID: [id number] BSA: 2.04 Date: 01/17/2025 Tech: COLLETTE MARTIN Height: 72.00 Age: 59 PF Predicted: Default Doctor: JONATHAN LEE Weight: 180.00 Sex: Male Race: <Other> significantly changed ??This interpretation has been electronically signed: Bharti Man 01/17/2025 03:34:42 PM?? ECHO 01/15 1. Normal left ventricular size. Moderate left [...] 12/01/2023, there has been no significant change. CT CHEST/ABDOMEN/PELVIS Date Procedure CPT Status Case # 03/12/2025 CT ABDOMEN W/O CONT [id number] Verified 2070 Low attenuation of the adrenal glands consistent with bilateral adrenal adenomas. Mesenteric stranding with top normal size and number of retroperitoneal and mesenteric lymph nodes, may be related to right heart dysfunction. Cardiomegaly with small pleural effusions and findings suggestive of interstitial pulmonary edema. 02/12/2025 CT ABDOMEN AND PELVIS W/CONTRAST 46344 Verified 966 Mild interstitial infiltrates and pleural effusions. Inhomogeneous enhancement of the liver may be related to right heart function or possibly diffuse disease. New adrenal nodules. Consider metastatic disease. Post cholecystectomy. Tiny amount of free fluid within the pelvis. RR PPD LAB CUMULATIVE SELECTED Collection DT Spec QUANTI a 02/26/2025 06:45 BLOOD [id number] COMMENTS: a. Test Performed by: [id number] Meter #: [id number] BLOOD TYPE Type: O + LABS * SEROLOGIES * Collection DT Specimen Test Name Result Units Ref Range 02/12/2025 08:24 SERUM HBSAG Nonreactive S/CO Ref: Nonreactive 02/12/2025 08:24 SERUM HCV Ab Nonreactive S/CO Ref: Nonreactive Comment: The listed sex of this patient may not be a typical Comment: indication for this test. Therefore, reference ranges or Comment: interpretive criteria listed may not be valid. Clinical correlation Comment: suggested. 02/12/2025 08:24 SERUM RPR Non-Reactive Ref: NONREACTIVE 02/12/2025 08:24 SERUM CMV-IGG-EIA POSITIVE NEG 02/12/2025 08:24 SERUM CMV-IGM-EIA NEGATIVE NEG * GENERAL LABS * LAB TESTS SELECTED Collection DT Specimen Test Name Result Units Ref Range 02/12/2025 08:24 PLASMA SODIUM 135 L mEq/L 136 - 145 02/12/2025 08:24 PLASMA POTASSIUM 4.2 mEq/L 3.5 - 5 02/12/2025 08:24 PLASMA CHLORIDE 99 mEq/L 98 - 107 02/12/2025 08:24 PLASMA CARBON DIOXIDE 27 mEq/L 22 - 31 02/12/2025 08:24 PLASMA UREA NITROGEN 29.3 H mg/dL 9.0 - 25.0 02/12/2025 08:24 PLASMA CREATININE 1.36 H mg/dL 0.7 - 1.3 02/12/2025 08:24 PLASMA GLUCOSE 122 H mg/dL 72 - 99 Comment: No hemolysis noted. 02/12/2025 08:24 PLASMA PROTIME 14.8 H sec 9.4 - 12.5 02/12/2025 08:24 PLASMA INR VALUE 1.3 INR 02/12/2025 08:24 PLASMA TSH 1.316 uIU/mL 0.47 - 5 02/12/2025 08:43 URINE CREATuF 88.9 mg/dL 63 - 166 Comment: The cut-off value for Fentanyl was laboratory developed and its Comment: performance characteristics confirmed by the [facility] Comment: laboratory thru method comparison with reference laboratory and Comment: medication chart review. The laboratory is regulated under CLIA as Comment: qualified to perform high-complexity testing. Fentanyl is used for Comment: clinical purposes in conjunction with other laboratory tests. 02/12/2025 08:25 BLOOD WBC 7.2 10*3/uL 3.6 - 11.2 02/12/2025 08:25 BLOOD RBC 5.22 10*6/uL 4.10 - 5.70 02/12/2025 08:25 BLOOD HGB 14.2 g/dL 13.1 - 16.8 02/12/2025 08:25 BLOOD HCT 44.7 % 38.2 - 48.4 02/12/2025 08:25 BLOOD MCV 85.6 fL 80.0 - 100.0 02/12/2025 08:25 BLOOD MCH 27.2 pg 27.0 - 34.0 02/12/2025 08:25 BLOOD MCHC 31.8 L g/dL 33.0 - 36.0 02/12/2025 08:25 BLOOD PLT 236 10*3/uL 150 - 400 02/12/2025 08:25 BLOOD MPV 10.8 fL 7.5 - 11.2 02/12/2025 08:25 BLOOD RDW 13.2 % 11.8 - 15.1 02/12/2025 08:25 BLOOD LYMPHOCYTES, AUTO 11 % 02/12/2025 08:25 BLOOD MONOCYTES, AUTO % 10 % 02/12/2025 08:25 BLOOD NEUTROPHILS, AUTO 78 % 02/12/2025 08:25 BLOOD EOSINOPHILS, AUTO 1 % 02/12/2025 08:25 BLOOD BASOPHILS, AUTO % 0 % 02/12/2025 08:25 BLOOD LYMPH ABS 0.79 10*3/uL 0.77 - 4.50 02/12/2025 08:25 BLOOD MONOCYTES, ABSOLU 0.73 10*3/uL 0.19 - 0.80 02/12/2025 08:25 BLOOD NEUT ABS 5.60 10*3/uL 2.10 - 8.00 02/12/2025 08:25 BLOOD EO ABS 0.08 10*3/uL 0.00 - 0.60 02/12/2025 08:25 BLOOD BASOPHILS, ABSOLU 0.02 10*3/uL 0.00 - 0.20 02/12/2025 08:43 URINE URINE RBC/HPF <1 /HPF 0 - 5 02/12/2025 08:43 URINE APPEARANCE Clear Ref: Clear 02/12/2025 08:43 URINE U.NITRITE Negative mg/dL Ref: Negative 02/12/2025 08:43 URINE URINE COLOR Light-Yellow Ref: Yellow 02/12/2025 08:43 URINE U.BILIRUBIN Negative mg/dL Ref: Negative 02/12/2025 08:43 URINE U.PH 6.5 5.0 - 8.0 02/12/2025 08:43 URINE URINE WBC/HPF 1 /HPF 0 - 5 URINALYSIS (Part I) No selection items chosen for this component. * TOXICOLOGY * Collection DT Specimen Test Name Result Units Ref Range 02/12/2025 08:43 URINE AMPHET. Negative ng/mL NEG. CU - FF <1000 ng/mL 02/12/2025 08:43 URINE BENZOD. Negative ng/mL NEG. CU - FF <200 ng/mL 02/12/2025 08:43 URINE CANNABINOIDS Negative ng/mL NEG. CU - FF <50 ng/mL 02/12/2025 08:43 URINE METHADONE Negative ng/mL NEG. CU - FF <300 ng/mL 02/12/2025 08:43 URINE OPIATES Negative ng/mL NEG. CU - FF <300 ng/mL 02/12/2025 08:43 URINE ETHANOL <10 mg/dL 0 - 9 Comment: The cut-off value for Fentanyl was laboratory developed and its Comment: performance characteristics confirmed by the [facility] Comment: laboratory thru method comparison with reference laboratory and Comment: medication chart review. The laboratory is regulated under CLIA as Comment: qualified to perform high-complexity testing. Fentanyl is used for Comment: clinical purposes in conjunction with other laboratory tests. 02/12/2025 08:24 PLASMA ETHANOL <10 mg/dL 0 - 9 Comment: No hemolysis noted. 02/12/2025 08:24 SERUM NICOTINE <2 ng/mL Ref: 02/12/2025 08:24 SERUM COTININE <2 ng/mL Ref: Comment: Reference Ranges(ng/mL): Comment: Non-Smoker Active Tobacco User Comment: < or = to 4 2-10 Comment: Reference Ranges(ng/mL): Comment: Non-Smoker Active Tobacco User Comment: < or = to 8 16-145 Comment: This test was developed and its analytical performance Comment: characteristics have been determined by [facility] Comment: [employer] [place], [place]. It has Comment: not been cleared or approved by the U.S. Food and Drug Comment: Administration. This assay has been validated pursuant Comment: to the CLIA regulations and is used for clinical Comment: purposes. Comment: [facility] Performed [facility], Comment: [employer], Comment: [id number] [place], [place] Comment: Jha Wade M.D., Ph.D., Director of Laboratories Comment: , [place] [id number] Toxicology Screen to include: Amphetamines, Barbituates, Benzoids, Cannabinoids, Cocaine, Methadone, Nicotine, Opiates, and Propoxyphene. HEART PROCEDURE/IMAGES BMI: 24.4 DOPPLER ULTRASOUND (Case 913 COMPLETE) US ABDOMEN LTD, SINGLE ORG OR BECKY(US Detailed) CPT:36720 Reason for Study: HF advanced therapies work-up (Case 914 COMPLETE) US BLOOD FLOW ABD/RENAL (LTD) (US Detailed) CPT:22882 Clinical History: Organ to Image: RUQ Reason for exam: HF advanced therapies work-up Report Status: Verified Date Reported: FEB 12, 2025 Date Verified: FEB 12, 2025 Knocker Out E-Sig:/ES/ASHLEE BOLES Report: Case [id number], [id number]. US ABDOMEN LTD, SINGLE ORG OR QUADRANT, [...] and report and concur with these findings. VASCULAR LABORATORY: SOURAV EXAMINATION Indication:Screening RIGHT LEFT STONECUTTER: 137 STONECUTTER: 121 DPA: 128 DPA: 137 BRACH: 105 BRACH: 111 SOURAV: 1.23 SOURAV: 1.23 TOE PRESSURES (mm Hg) RIGHT: 83 LEFT: 112 IMPRESSION:normal resting sourav's and toe pressures bilaterally VASCULAR LABORATORY: CAROTID DUPLEX EXAMINATION Indication:Screening Rt ICA:<50% stenosis Rt ICA PSV:69 Rt ICA EDV:30 Rt CCA:Patent Rt CCA PSV:96 Rt CCA EDV:27 Rt ECA:Patent Rt ECA PSV:67 Rt ECA EDV:14 Rt VERT:Antegrade IC/CC RATIO:0.97 Lt ICA:<50% stenosis Lt ICA PSV:75 Lt ICA EDV:33 Lt CCA:Patent Lt CCA PSV:93 Lt CCA EDV:27 Lt ECA:Patent Lt ECA PSV:55 Lt ECA EDV:09 Lt VERT:Antegrade IC/CC RATIO: 1.14 IMPRESSION:there is <50% stenosis of both internal carotid arteries. both external carotid arteries are patent and both vertebral arteries are antegrade. ABDOMINAL CT/MRI Date Procedure CPT Status Case # 03/12/2025 CT ABDOMEN W/O CONT [id number] Verified 2069 Low attenuation of the adrenal glands consistent with bilateral adrenal adenomas. Mesenteric stranding with top normal size and number of retroperitoneal and mesenteric lymph nodes, may be related to right heart dysfunction. Cardiomegaly with small pleural effusions and findings suggestive of interstitial pulmonary edema. COLONOSCOPY 06/2021 at [facility] 1 colon polyp removed, benign Recommend repeat colonoscopy 2025 HEART SPECIFIC INFORMATION NYHA Class: IIIb Results of Cardiac Catheterization (Right): [facility] Sep 18, 2024 RIGHT HEART CATHETERIZATION [...] 2.3 Wood units Systemic vascular resistance: 1677 [id number]^-[id number] Oxygen Saturations: Arterial saturation: 95% Mixed venous [...] mmHg. 6. Normal transpulmonary gradient 7 mmHg. Results of Cardiac Catheterization (Left): 2021: Clean coronaries NOTE: After review of referral packet as outlined above, additional information/test results may be requested by Review Board members. [facility] PHYSICIAN INFORMATION [place] Staff Physician: Abril Vergara Fax: [place] Transplant Piping Manager: Henny Marley PA-C [facility] [id number] Fax: [place] Clinical Food And Beverage Controller: Phone: Fax: [place] Superintendent Operating to drapery maker: Phone: Fax: E-mail: [place] drapery maker: Phone: Fax: E-mail: /es/ Henny Marley PA-C Cardiology Physician Senior Sharepoint Developer Signed: 04/03/2025 12:30 HENNY MARLEY [facility]
--- OUTSIDE RECORDS SUMMARY | 2025-06-24 12:00 | XMS_ITS | Encounter Summary ---
Author Name [facility] [facility] [place] [facility] [place] Address [address] [place] [address] Care Team Providers Care Security Operations Manager Name Role Phone ELLIOTADAMA Fernandez Primary Care Provider Unavailabl e Insurance Providers: [...] Kennedy's Name Patient's Relationship to Policy Kennedy [facility] [address] [facility] Nov 21, 2024 [facility] [id number] [phone] Elzbieta ZUNIGA PATIENT Selected Encounter This section includes the information on record at [place] for the Encounter. Date/Time Encounter Type Encounter Description Reason Pro vider Source Jun 27, 2024 08:39 AM Outpatient Encounter CARDIOLOGY IHE Encounter Template Text not used by [place] Plan of Treatment: Future Appointments (+ 6 [...] 20 appointments. The data comes from all [place] treatment facilities. Appointment Date/Time Appointment Type Appointme nt Facility Name Jun 28, 2024 09:15 AM AMBULATORY - MEDICINE [facility] Sep 18, 2024 07:00 AM AMBULATORY - NONE [facility] Sep 18, 2024 07:15 AM AMBULATORY - MEDICINE [facility] Sep 18, 2024 12:00 PM AMBULATORY - MEDICINE [facility] Oct 27, 2024 12:11 PM AMBULATORY - MEDICINE [facility] Vital Signs: All taken on the encounter date This section contains inpatient and outpatient Vital Signs collected on the date of the Encounter. Date/Time Temperature Pulse Blood Pressure Respiratory Rate SP02 Pain Height Weight Body Mass Index Source Jun 27, 2024 08:21 AM 98.2 74 122/77 18 100 2 168.6 23 [facility] Social History: Smoking Status (Most current) and Tobacco Use (All prior to encounter date) This section includes the most current, and the historical, smoking and tobacco- related health factors from the [place] facility where the Encounter took place. Current Smoking Status This section includes the most current smoking, or tobacco-related health factor, from the [place] facility where the Encounter took place. Date/Time Current Smoking Status Ирина reyes Feb 10, 2024 06:16 PM ORYX ADMIT TOBACCO SCREEN NO [facility] Advance Directives: All historical and current Section Date Range: From patient's date of to the date document was created. This section includes ALL of a patient's completed or amended [place] Advance and Rescinded Directives. The entries below indicate that a directive exists for the patient, but an actual copy is not included with this document. The data comes from all [place] facilities. Date Advance Directives Provider Source Feb 16, 2024 ADVANCE DIRECTIVE GINA BRIGHT [facility] Encounter Notes: All associated encounter notes This section contains the clinical notes associated to the Encounter. Date/Time Encounter Note(s) Provider Source Jun 27, 2024 04:28 PM CARDIOLOGY DIAGNOS TIC STUDY CONSULT: LOCAL TITLE: EKG CONSULT STL STANDARD TITLE: CARDIOLOGY DIAGNOSTIC STUDY CONSULT DATE OF NOTE: JUN 27, 2024@16:28:20 ENTRY DATE: JUN 27, 2024@16:28:20 AUTHOR: CLINICAL,DEVICE PRO EXP COSIGNER: URGENCY: STATUS: COMPLETED DOCUMENT IN VISTA IMAGING SEE FULL REPORT IN VISTA IMAGING SIGNATURE NOT REQUIRED SEE SIGNATURE IN VISTA IMAGING ([place] EKG) AUTO-INSTRUMENT DIAGNOSIS Procedure: [id number] 12 Lead ECG Release Status: Released Off-Line Verified Date Verified: Jun 27, 2024@16:28:15 88870.2 Ventricular Rate: 71 BPM 62450.5 QRS Duration: 100 ms 06582.6 Q-T Interval: 374 ms 48385 QTC Calculation(Bazett)406 ms 57811.13 Calculated R [place]: 119 degrees 79310.14 Calculated T [place]: 251 degrees Atrial fibrillation Right axis deviation Low voltage QRS, consider pulmonary disease, pericardial effusion, or normal variant Incomplete right bundle branch block Cannot rule out Anteroseptal infarct (cited on or before 21-SEP-2023) ST & T wave abnormality, consider lateral ischemia Abnormal ECG When compared with ECG of 10-FEB-2024 18:43, Significant changes have occurred Administrative Closure: 06/27/2024 by: CLINICAL,DEVICE PROXY SERVICE CLINICAL,DEVICE PROXY SERVICE [facility]
[2025-06-24 12:28] LABS: Hematocrit 25.7 % (42.0-52.0); Hemoglobin 7.9 g/dL (14.0-18.0); Immature Granulocyte Percent A 0.7 % (0-0.5); Lymphocytes Absolute Auto 0.63 K/mm3 (0.9-3.2); Mean Corpuscular HGB Conc 30.7 g/dl (32-36); Mean Corpuscular Hemoglobin 25.9 pg (26-34); Mean Corpuscular Volume 84.3 fl (80-100); Nucleated Red Blood Cells Absolute Auto 0.000 K/mm3 (0.0-0.012); Nucleated Red Blood Cells Perc 0.0 % (0.0-0.2); Platelet Count Result 465 k/mm3 (150-375); Red Blood Count 3.05 M/mm3 (4.6-6.20); White Blood Count 9.2 K/mm3 (4.5-10.0)
[2025-06-24 13:20] LABS: Alanine Aminotransferase 20 U/L (6-50); Albumin Level 3.7 g/dL (3.5-5.1); Alkaline Phosphatase 120 U/L (38-126); Anion Gap 12 mmol/L (4-12); Aspartate Amino Transferase 25 U/L (17-59); Bilirubin,Total 0.6 mg/dL (0.2-1.3); Blood Urea Nitrogen 68 mg/dL (9-20); Calcium 9.6 mg/dL (8.4-10.2); Carbon Dioxide 27 mmol/L (22-30); Chloride 99 mmol/L (98-107); Estimated Glomerular Filt Rate 31; Glucose 92 mg/dL (65-110); Potassium 3.5 mmol/L (3.4-5.0); Sodium 138 mmol/L (137-145); Total Protein 6.2 g/dL (6.3-8.2)
[2025-06-26 16:08] LABS: Tacrolimus (FK506), Blood 8.1 ng/mL (5.0-20.0)
== END 2025-06-24 10:53 | disposition home or self-care (01) ==
DX: Z94.1 Heart transplant status (principal)
CPT/HCPCS: 80053; 80197; 85025

== ENCOUNTER 2025-07-08 09:55 | Outpatient (NON) | payer OTHER, SELFPAY ==
[2025-07-08 10:37] LABS: Hematocrit 25.0 % (42.0-52.0); Hemoglobin 7.4 g/dL (14.0-18.0); Immature Granulocyte Percent A 0.7 % (0-0.5); Lymphocytes Absolute Auto 0.71 K/mm3 (0.9-3.2); Mean Corpuscular HGB Conc 29.6 g/dl (32-36); Mean Corpuscular Hemoglobin 26.1 pg (26-34); Mean Corpuscular Volume 88.3 fl (80-100); Nucleated Red Blood Cells Absolute Auto 0.000 K/mm3 (0.0-0.012); Nucleated Red Blood Cells Perc 0.0 % (0.0-0.2); Platelet Count Result 342 k/mm3 (150-375); Red Blood Count 2.83 M/mm3 (4.6-6.20); White Blood Count 7.0 K/mm3 (4.5-10.0)
--- OUTSIDE RECORDS SUMMARY | 2025-07-08 10:51 | XMS_ITS | Encounter Summary ---
Author Name [facility] [place] [facility] [place] [facility] [place] Address [address] [place] [address] Care Team Providers Care Kerrick Kleaner Operator Name Role Phone OSWALDO ADAMA Primary [...] Kennedy's Name Patient's Relationship to Policy Kennedy [facility] 2024 [facility] Nov 21, 2024 [facility] [id number] Elzbieta ZUNIGA PATIENT Selected Encounter This section includes the information on record at [place] for the Encounter. Date/Time Encounter Type Encounter Description Reason Provider Source Jul 01, 2025 10:11 AM Outpatient Encounter ADMIN PAT ACTIVTIES (MASNONCT) BEAR PRADO Encounter Template Text not used by VA [...] 20 appointments. The data comes from all [facility]. Appointment Date/Time Appointment Type Appointme nt Facility Name Jul 24, 2025 09:00 AM AMBULATORY - MEDICINE [facility] Aug 14, 2025 02:40 PM AMBULATORY - NONE [facility] Active, Pending, and Scheduled Orders This section includes a listing of several types of active, pending, and scheduled orders, including clinic medications orders, diagnostic test orders, procedure orders and consult orders; where the start date of the order is 45 days before the date of the Encounter or 45 days after the date of theEncounter. The data comes from all [facility]. Test Date/Time Test Type Test Details Facility Name Jun 06, 2025 09:09 PM Consult Order [facility] Cons Jewel Inspector's Choice [facility] Social History: Smoking Status (Most current) and Tobacco Use (All prior to encounter date) This section includes the most current, and the historical, smoking and tobacco- related health factors from the [place] facility where the Encounter took place. Current Smoking Status This section includes the most current smoking, or tobacco-related health factor, from the [place] facility where the Encounter took place. Date/Time Current Smoking Status Comment Khurram reyes Jun 08, 2022 10:00 AM VA-TOBACCO NEVER USED [facility] Advance Directives: All historical and current Section Date Range: From patient's date of to the date document was created. This section includes ALL of a patient's completed or amended [place] Advance and Rescinded Directives. The entries below indicate that a directive exists for the patient, but an actual copy is not included with this document. The data comes from all [place] facilities. Date Advance Directives Provider Source Feb 16, 2024 ADVANCE DIRECTIVE GINA BRIGHT [facility] Encounter Notes: All associated encounter notes This section contains the clinical notes associated to the Encounter. Date/Time Encounter Note(s) Provider Source Jul 01, 2025 10:11 AM PHARMACY MEDICATIO N MGT DISCHARGE NOTE: LOCAL TITLE: PHARMACY COMMUNITY CARE PRESCRIPTION PROCESSING NOT STANDARD TITLE: PHARMACY MEDICATION MGT DISCHARGE NOTE DATE OF NOTE: JUL 01, 2025@10:11 ENTRY DATE: JUL 01, 2025@10:11:30 AUTHOR: BEAR PRADO WHI EXP COSIGNER: URGENCY: STATUS: COMPLETED Pharmacy service received prescription(s) via: Inbound ERx ELIGIBILITY: [facility] eligibility has been verified and/or is documented. PRESCRIPTION INFORMATION: Provider Information: ABRIL VERGARA, [facility] cardiology, fax: [phone] 1) eRx Drug : torsemide 20 mg tablet (DEMADEX), eRx SIG : Take 1 tablet (20 mg total) by mouth 3 (three) times a weekeRx Notes: PA/Scripts P: [phone] F: [phone] DISPOSITION: The medication(s) prescribed is/are formulary without criteria for use or other restrictions, and will be dispensed to the patient. /es/ BEAR PRADO PharmD [facility] Pharmacist, Pharmacy Signed: 07/01/2025 10:36 BEAR PRADO [facility]
--- OUTSIDE RECORDS SUMMARY | 2025-07-08 10:52 | XMS_ITS | Encounter Summary ---
Author Organization [facility] Address [address] [place] [address] Phone Care Team Providers Care Lugger Name Role Phone Anuel Vargas Primary Care Provider [phone] Justin Flowers MD Unavailable Erlin Chong MD Unavailable Katerina Romero RN Unavailable Unavailable Alexandra Powell RN Unavailable [phone] Encounter Details Date Type Department Care Team (Late st Contact Info) Description 05/08/2025 Documentation [facility] Endocrinology Metabolism and Lipid [address] [facility] Advanced Medicine 13th [place] [address] [place] [address] Edmundo Best MD [address] [place] [address] Social History Tobacco Use Types Packs/Day Years Used Date Smoking Tobacco: Never Passive Smoke Exposure: Never Smokeless Tobacco: Never [facility] Utilities Answer Date Recorded In the past 12 months has eyefactive, gas, oil, or water company threatened to shut off services in your home? No 04/10/2025 Social Connection and Isolation Panel Answer Date Recorded In a typical week, how many times do you talk on the phone with family, friends, or neighbors? More than three times a week 04/10/2025 How often do you get togethe r with friends or relatives? Once a week 04/10/2025 How often do you attend chur ch or spiritism services? Never 04/10/2025 Do you belong to any clubs o r organizations such as mandaeism groups, unions, fraternal or athletic groups, or [...] place to sleep or slept in a long-term (including now)? No 11/28/2023 PHQ-9 Answer Date [...] any time in the past 12 m [facility], were you homeless or living in a long-term (including now)? No 04/10/2025 Personal Safety Answer Date Recorded Have you ever been in or are you currently in a harmful physical or emotional relationship or is someone making you feel afraid or unsafe? 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 RENTAL SALESPERSON Gender Identity Male 05/28/2021 8:44 PM CDT Sexual Orientation Straight 10/19/2022 9: 47 AM RENTAL SALESPERSON documented as of this encounter Plan of Treatment Upcoming Encounters Date Type Department Care Team (Latest Contact Info) Description 07/15/2025 9:00 AM CDT Hospital Encounter [address] [place] [address] Yaakov Lawrence MD PhD [address] 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 07/15/2025 9:00 AM CDT - 07/15/2025 9:30 AM CDT Surgery [address] [place] [address] Yaakov Lawrence MD PhD [address] [place] [address] ENDOMYOCARDIAL BIOPSY [id number] documented as of this encounter Visit Diagnoses [...] documented as of this encounter Care Teams Lugger Relationship Specialty Start Date End Date AliciaAnuel abadDO PCP - General Internal Medicine 10/19/22 Justin Flowers MD [address] DIV [facility] [facility]ANSPL[facility] [place] [address] Consulting Physician Medical Oncology 10/06/23 Erlin Chong MD [address] DIV [facility] [employer]OW TR[employer] [place] [address] Referring Physician Cardiology 10/06/23 Katerina Romero, physician liaisonElectronic Installer Cardiothoracic Surgery 04/03/25 05/20/25 Alexandra Powell, CECE [address] [facility] [address] [place] [address] Electronic Installer Transplant 05/21/25 documented as of this encounter
--- OUTSIDE RECORDS SUMMARY | 2025-07-08 10:52 | XMS_ITS | Encounter Summary ---
Author Organization 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 APPRAISER Gender Identity Male 05/28/2021 8:44 PM CDT Sexual Orientation Straight 10/19/2022 9: 47 AM STAFF APPRAISER documented as of this encounter Plan of Treatment Upcoming Encounters Date Type Department Care Team (Latest Contact Info) Description 07/15/2025 9:00 AM CDT Hospital Encounter [address] [place] [address] Yaakov Lawrence MD PhD [address] [place] [address] 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 auris Comment:04/15/25: Negative C. [...] documented as of this encounter Care Teams Sugar Cane Planting Equipment Operator Relationship Specialty Start Date End Date Anuel Vargas DO PCP - General Internal Medicine 10/19/22 Justin Flowers MD [address] DIV IM B[employer]ARROW TRANSPLANT[address] [place] [address] Consulting Physician Medical Oncology 10/06/23 Erlin Chong MD [address] DIV IM BONE MARROW TRANSPLANT, [address] [place] [address] Referring Physician Cardiology 10/06/23 Katerina Romero, representative government relationsMaintenance Helper Utility Engineer Cardiothoracic Surgery 04/03/25 05/20/25 Alexandra Powell, CECE [address] [facility] [address] [place] [address] Maintenance Helper Utility Engineer Transplant 05/21/25 documented as of this encounter
--- OUTSIDE RECORDS SUMMARY | 2025-07-08 10:52 | XMS_ITS | Clinical Summary ---
Author Organization Unknown Care Team Providers Care Cost Estimating Manager Name Role Phone URSULA KING, ABRIL Unavailable Unavailable MICHELINE ZHAO, MACY Unavailable Unavailabl e Payers Payer Name Policy Type Policy Number Effective Date Expira tion Date [facility] OPTUM PROGRAM - PDGM Problems Condition Name Condition Details Condition Category Status Onset Date Resolution Date Last Treatment Date Treating Clinician Comments ENCOUNTER FOR AFTERCARE FOLLOWING HEART TRANSPLANT Active 05-21 00:00: 00 HYPERTENSIVE CHRONIC KIDNEY DISEASE W STG 1-4/UNSP CHR KDNY Active 11-21 00:00: 00 CHRONIC KIDNEY DISEASE, STAGE 2 (MILD) Active 11-21 00:00: 00 EMPHYSEMA, UNSPECIFIED Active 11-21 00:00: 00 ACUTE KIDNEY FAILURE, UNSPECIFIED Active 11-21 00:00: 00 ALF (CURRENT) USE OF INSULIN Active 11-21 00:00: 00 UNSPECIFIED OPEN WOUND OF OTHER PART OF HEAD, SUBS ENCNTR Active 11-21 00:00: 00 GASTRO-ESOPH AGEAL REFLUX DISEASE WITHOUT ESOPHAGITIS Active 11-21 00:00: 00 GOUT, UNSPECIFIED Active 11-21 00:00: 00 HYPERLIPIDEM IA, UNSPECIFIED Active 11-21 00:00: 00 Problems related to health literacy Active 11-21 00:00: 00 ELECTRICAL TECH (CURRENT) USE OF ORAL HYPOGLYCEMIC DRUGS Active 11-21 00:00: 00 ELECTRICAL TECH (CURRENT) USE OF SYSTEMIC STEROIDS Active 11-21 00:00: 00 HYPERGLYCEMI A, UNSPECIFIED Active 06-11 00:00: 00 Allergies, Adverse Reactions, Alerts Allergy Name Allergy Type Status Severity Reaction(s) Onset Date Inactive Date Treating Clinician Comments NKA Propensity to adverse reactions Active 2025-05 01:51:1 6 Medications Ordered Medication Name Filled Medication Name Start Date Stop Date Current Medication? Ordering Clinician Indication Dosage Frequency Signature (SIG) Comments Components bumetanide 1 mg tablet 06-12 00:00: 00 Yes [id number] 1 tablet 2 TIMES DAILY 1 tablet 2 TIMES DAILY (route: oral) Med Classific ation: Cardiovas cular Therapy Agents dapsone 100 mg tablet 06-12 00:00: 00 Yes [id number] 1 tablet DAILY 1 tablet DAILY (route: oral) Med Classific ation: Anti-Infe ctive Agents docusate sodium 100 mg capsule 06-12 00:00: 00 Yes [id number] 1 capsule 2 TIMES DAILY 1 capsule 2 TIMES DAILY (route: oral) Med Classific ation: Gastroint estinal Therapy Agents fluconazole 100 mg tablet 06-12 00:00: 00 Yes [id number] 1 tablet DAILY 1 tablet DAILY (route: oral) Med Classific ation: Anti-Infe ctive Agents Glucagon Emergency Kit 1 mg solution for injection 06-12 00:00: 00 Yes [id number] 1 mg NEEDED 1 mg NEEDED (route: injection) Med Classific ation: Endocrine Jardiance 25 mg tablet 06-12 00:00: 00 Yes [id number] 1 tablet DAILY 1 tablet DAILY (route: oral) Med Classific ation: Endocrine Lantus Solostar U-100 Insulin 100 unit/mL (3 mL) subcutaneou s pen 06-12 00:00: 00 Yes [id number] 31 unit DAILY 31 unit DAILY (route: subcutaneo us) Med Classific ation: Endocrine Lokelma 10 gram oral powder packet 06-12 00:00: 00 Yes [id number] 1 powder in packet NOON 1 powder in packet NOON (route: oral) Med Classific ation: Electroly te Balance-N utritiona l Products methocarbam ol 500 mg tablet 06-12 00:00: 00 Yes [id number] 1 tablet 3 TIMES DAILY 1 tablet 3 TIMES DAILY (route: oral) Med Classific ation: Locomotor System mycophenola te mofetil 500 mg tablet 06-12 00:00: 00 Yes [id number] 2 tablet EVERY 12 HOURS 2 tablet EVERY 12 HOURS (route: oral) Med Classific ation: Immunosup pressive Agents oxycodone 5 mg tablet 06-12 00:00: 00 Yes [id number] 0.5 tablet EVERY 6 HOURS 0.5 tablet EVERY 6 HOURS (route: oral) Med Classific ation: Analgesic , Anti-infl ammatory or Antipyret ic pantoprazol e 20 mg tablet,ray yed release 06-12 00:00: 00 Yes [id number] 1 tablet DAILY 1 tablet DAILY (route: oral) Med Classific ation: Gastroint estinal Therapy Agents prednisone 5 mg tablet 06-12 00:00: 00 Yes [id number] 4 tablet DAILY 4 tablet DAILY (route: oral) Med Classific ation: Endocrine rosuvastati n 10 mg tablet 06-12 00:00: 00 Yes [id number] 1 tablet BEDTIME 1 tablet BEDTIME (route: oral) Med Classific ation: Cardiovas cular Therapy Agents Senna Laxative 8.6 mg tablet 06-12 00:00: 00 Yes [id number] 1 tablet 2 TIMES DAILY 1 tablet 2 TIMES DAILY (route: oral) Med Classific ation: Gastroint estinal Therapy Agents tacrolimus 1 mg capsule, immediate-r elease 06-12 00:00: 00 Yes [id number] 2 capsule DAILY 2 capsule DAILY (route: oral) Med Classific ation: Immunosup pressive Agents tacrolimus 1 mg capsule, immediate-r elease 06-12 00:00: 00 Yes [id number] 1 capsule BEDTIME 1 capsule BEDTIME (route: oral) Med Classific ation: Immunosup pressive Agents Tylenol 8 Hour 650 mg tablet,exte nded release 06-12 00:00: 00 Yes [id number] 1 tablet EVERY 4 HOURS 1 tablet EVERY 4 HOURS (route: oral) Med Classific ation: Analgesic , Anti-infl ammatory or Antipyret ic valganciclo vir 450 mg tablet 06-12 00:00: 00 Yes [id number] 1 tablet DAILY 1 tablet DAILY (route: oral) Med Classific ation: Anti-Infe ctive Agents Mavyret 100 mg-40 mg tablet 06-13 00:00: 00 Yes [id number] 3 tablet DAILY 3 tablet DAILY (route: oral) Med Classific ation: Anti-Infe ctive Agents Triple Antibiotic 3.5 mg-400 unit-5,000 unit/gram topical ointment 06-13 00:00: 00 Yes [id number] Per instruc tions DIRECTED Per instructio ns DIRECTED (route: topical) Med Classific ation: Dermatolo gical Immunizations Ordered Immunization Name Filled Immunization Name Date Status Comments Refusal Reason COVID BOOSTER, COVID BOOSTER 2025-03-13 00:00:00 SHINGLES, TIV (INACTIVATED) 2024-05-23 00:00:00 Vital Signs Vital Name Observation Time Observation Value Commen ts Temperature 2025-07-04 08:33:00.000 97.5 [degF] Temperature 2025-07-01 15:49:00.000 97.6 [degF] Temperature 2025-06-27 12:11:00.000 97.5 [degF] Temperature 2025-06-24 08:53:00.000 97.6 [degF] Temperature 2025-06-20 08:44:00.000 97.7 [degF] Temperature 2025-06-19 08:50:00.000 97.6 [degF] Temperature 2025-06-13 09:36:00.000 98.4 [degF] BMI (%) 2025-06-13 09:36:00.000 23 kg/m2 Height 2025-06-13 09:36:00.000 72 [in_us] Pulse 2025-07-04 08:33:00.000 84 /min Pulse 2025-07-01 15:49:00.000 90 /min Pulse 2025-06-27 12:11:00.000 90 /min Pulse 2025-06-24 08:53:00.000 90 /min Pulse 2025-06-20 08:44:00.000 92 /min Pulse 2025-06-19 08:50:00.000 88 /min Pulse 2025-06-13 09:36:00.000 100 /min O2 Saturation (%) 2025-07-04 08:33:00.000 95 % O2 Saturation (%) 2025-07-01 15:49:00.000 97 % O2 Saturation (%) 2025-06-27 12:11:00.000 96 % O2 Saturation (%) 2025-06-24 08:53:00.000 100 % O2 Saturation (%) 2025-06-20 08:44:00.000 98 % O2 Saturation (%) 2025-06-19 08:50:00.000 98 % O2 Saturation (%) 2025-06-13 09:36:00.000 97 % Respirations 2025-07-04 08:33:00.000 18 /min Respirations 2025-07-01 15:49:00.000 18 /min Respirations 2025-06-27 12:11:00.000 18 /min Respirations 2025-06-24 08:53:00.000 18 /min Respirations 2025-06-20 08:44:00.000 18 /min Respirations 2025-06-19 08:50:00.000 18 /min Respirations 2025-06-13 09:36:00.000 18 /min Weight (lbs) 2025-07-04 08:33:00.000 160 [lb_av] Weight (lbs) 2025-06-27 12:11:00.000 164.4 [lb_av] Weight (lbs) 2025-06-24 08:56:00.000 165.3 [lb_av] Weight (lbs) 2025-06-19 09:16:00.000 171.8 [lb_av] Weight (lbs) 2025-06-13 09:36:00.000 173 [lb_av] Systolic Blood Pressure 2025-07-04 08:33:00.000 118 mm [Hg] Systolic Blood Pressure 2025-07-01 15:49:00.000 104 mm [Hg] Systolic Blood Pressure 2025-06-27 12:11:00.000 122 mm [Hg] Systolic Blood Pressure 2025-06-24 08:53:00.000 118 mm [Hg] Systolic Blood Pressure 2025-06-20 08:44:00.000 118 mm [Hg] Systolic Blood Pressure 2025-06-19 08:50:00.000 122 mm [Hg] Systolic Blood Pressure 2025-06-13 09:36:00.000 110 mm [Hg] Diastolic Blood Pressure 2025-07-04 08:33:00.000 58 mm [Hg] Diastolic Blood Pressure 2025-07-01 15:49:00.000 60 mm [Hg] Diastolic Blood Pressure 2025-06-27 12:11:00.000 58 mm [Hg] Diastolic Blood Pressure 2025-06-24 08:53:00.000 70 mm [Hg] Diastolic Blood Pressure 2025-06-20 08:44:00.000 66 mm [Hg] Diastolic Blood Pressure 2025-06-19 08:50:00.000 82 mm [Hg] Diastolic Blood Pressure 2025-06-13 09:36:00.000 58 mm [Hg] Plan of Treatment Planned Activity Planned Date Details Comments Future Scheduled Test SKILLED NU RSE TO EVALUATE PATIENT, IDENTIFY PRIMARY AND CO-MORBID CONDITIONS CODED PER CODING GUIDELINES, AND DEVELOP PATIENT SPECIFIC PLAN OF CARE THAT INCLUDES PATIENT GOAL FOR HOME HEALTH. [code = SKILLED NURSE TO EVALUATE PATIENT, IDENTIFY PRIMARY AND CO-MORBID CONDITIONS CODED PER CODING GUIDELINES, AND DEVELOP PATIENT SPECIFIC PLAN OF CARE THAT INCLUDES PATIENT GOAL FOR HOME HEALTH.] Future Scheduled Test [facility] MAY ACCEPT ORDERS FROM THE FOLLOWING PHYSICIANS: DR LONA AMOS, DR PORFIRIO RUSSELL, DR CARMEN LEDBETTER, DR SHERRON VILLANUEVA, DR CLIFF FREEMAN, DR DAWSON GAVIRIA [employer]RE[employer] AND BUILDINGS DECORATOR/TREATING PROVIDERS [code = HOME HEALTH AGENCY MAY ACCEPT ORDERS FROM THE FOLLOWING PHYSICIANS: DR LONA AMOS, DR PORFIRIO RUSSELL, DR CARMEN LEDBETTER, DR SHERRON VILLANUEVA, DR CLIFF FREEMAN, DR DAWSON GAVIRIA [employer]RE[employer] AND BUILDINGS DECORATOR/TREATING PROVIDERS] Future Scheduled Test SKILLED NU RSE FOR O/A, TEACHING, AND MANAGEMENT OF NICM S/P HEART TRANSPLANT. INSTRUCT PATIENT/CAREGIVER ON SIGNS AND SYMPTOMS OF EXACERBATION TO REPORT AND IMPORTANCE OF OBTAINING AND RECORDING DAILY WEIGHT. SN OR TRAINED PATIENT/CAREGIVER TO OBTAIN WEIGHT DAILY AND WEIGHT GAIN OF 2 LBS OVERNIGHT OR 5 LBS IN 1 WEEK TO BE REPORTED TO PHYSICIAN/PROVIDER. [code = SKILLED NURSE FOR O/A, TEACHING, AND MANAGEMENT OF NICM S/P HEART TRANSPLANT. INSTRUCT PATIENT/CAREGIVER ON SIGNS AND SYMPTOMS OF EXACERBATION TO REPORT AND IMPORTANCE OF OBTAINING AND RECORDING DAILY WEIGHT. SN OR TRAINED PATIENT/CAREGIVER TO OBTAIN WEIGHT DAILY AND WEIGHT GAIN OF 2 LBS OVERNIGHT OR 5 LBS IN 1 WEEK TO BE REPORTED TO PHYSICIAN/PROVIDER.] Future Scheduled Test SKILLED NU RSE FOR O/A AND SKILLED TEACHING RELATED TO SIGNS AND SYMPTOMS OF INFECTION AND INFECTION CONTROL MEASURES. [code = SKILLED NURSE FOR O/A AND SKILLED TEACHING RELATED TO SIGNS AND SYMPTOMS OF INFECTION AND INFECTION CONTROL MEASURES.] Future Scheduled Test NEED FOR S KILLED TEACHING AND INTERVENTION RELATED TO SURGICAL INCISION TO MIDLINE CHEST AND X3 SCOPE SITES. SKILLED NURSE OR TRAINED PATIENT/CAREGIVER TO PERFORM WOUND CARE USING CLEAN TECHNIQUE, CLEANSE WITH SOAP AND WATER, PAT DRY WITH CLEAN TOWEL, LEAVE OPEN TO AIR. WOUND CARE TO BE PERFORMED DAILY AND PRN IF SOILED OR DISLODGED. 1-2 PRN SKILLED NURSE VISITS FOR WOUND CARE DUE TO COMPLICATIONS. SKILLED NURSE TO OBTAIN WOUND CULTURE PRN S/S OF INFECTION. NEED FOR SKILLED TEACHING AND INTERVENTION RELATED TO TRAUMA WOUND TO RIGHT FOREHEAD. SKILLED NURSE OR TRAINED PATIENT/CAREGIVER TO PERFORM WOUND CARE USING CLEAN TECHNIQUE, CLEANSE WITH SOAP AND WATER, PAT DRY WITH CLEAN TOWEL, APPLY JOSE CARLOS, COVER WITH GAUZE, TAPE IN PLACE. WOUND CARE TO BE PERFORMED DAILY AND PRN IF SOILED OR DISLODGED. 1-2 PRN SKILLED NURSE VISITS FOR WOUND CARE DUE TO COMPLICATIONS. SKILLED NURSE TO OBTAIN WOUND CULTURE PRN S/S OF INFECTION. WOUND CARE WILL BE PERFORMED BY TRAINED CAREGIVER ON DAYS WHEN SKILLED NURSE IS NOT SCHEDULED FOR A VISIT. DISCONTINUE WOUND CARE/SUPPLIES ONCE WOUND IS HEALED. [code = NEED FOR SKILLED TEACHING AND INTERVENTION RELATED TO SURGICAL INCISION TO MIDLINE CHEST AND X3 SCOPE SITES. SKILLED NURSE OR TRAINED PATIENT/CAREGIVER TO PERFORM WOUND CARE USING CLEAN TECHNIQUE, CLEANSE WITH SOAP AND WATER, PAT DRY WITH CLEAN TOWEL, LEAVE OPEN TO AIR. WOUND CARE TO BE PERFORMED DAILY AND PRN IF SOILED OR DISLODGED. 1-2 PRN SKILLED NURSE VISITS FOR WOUND CARE DUE TO COMPLICATIONS. SKILLED NURSE TO OBTAIN WOUND CULTURE PRN S/S OF INFECTION. NEED FOR SKILLED TEACHING AND INTERVENTION RELATED TO TRAUMA WOUND TO RIGHT FOREHEAD. SKILLED NURSE OR TRAINED PATIENT/CAREGIVER TO PERFORM WOUND CARE USING CLEAN TECHNIQUE, CLEANSE WITH SOAP AND WATER, PAT DRY WITH CLEAN TOWEL, APPLY JOSE CARLOS, COVER WITH GAUZE, TAPE IN PLACE. WOUND CARE TO BE PERFORMED DAILY AND PRN IF SOILED OR DISLODGED. 1-2 PRN SKILLED NURSE VISITS FOR WOUND CARE DUE TO COMPLICATIONS. SKILLED NURSE TO OBTAIN WOUND CULTURE PRN S/S OF INFECTION. WOUND CARE WILL BE PERFORMED BY TRAINED CAREGIVER ON DAYS WHEN SKILLED NURSE IS NOT SCHEDULED FOR A VISIT. DISCONTINUE WOUND CARE/SUPPLIES ONCE WOUND IS HEALED.] Future Scheduled Test SKILLED NU RSE TO OBTAIN BLOOD SUGAR PRN FOR SIGNS AND SYMPTOMS OF HYPO/HYPERGLYCEMIA. IF OBTAINED BY PATIENT/CAREGIVER PRIOR TO VISIT AND PATIENT IS NOT SYMPTOMATIC, SKILLED NURSE TO RECORD READING FROM PATIENT LOG. [code = SKILLED NURSE TO OBTAIN BLOOD SUGAR PRN FOR SIGNS AND SYMPTOMS OF HYPO/HYPERGLYCEMIA. IF OBTAINED BY PATIENT/CAREGIVER PRIOR TO VISIT AND PATIENT IS NOT SYMPTOMATIC, SKILLED NURSE TO RECORD READING FROM PATIENT LOG.] Future Scheduled Test SKILLED NU RSE FOR O/A AND TEACHING OF ENDOCRINE SYSTEM TO IDENTIFY CHANGES ASSOCIATED WITH EXACERBATION OF HYPERGLYCEMIA DUE TO STEROID USE FOR EARLY INTERVENTION OF COMPLICATIONS. [code = SKILLED NURSE FOR O/A AND TEACHING OF ENDOCRINE SYSTEM TO IDENTIFY CHANGES ASSOCIATED WITH EXACERBATION OF HYPERGLYCEMIA DUE TO STEROID USE FOR EARLY INTERVENTION OF COMPLICATIONS.] Future Scheduled Test SKILLED NU RSE FOR O/A AND SKILLED TEACHING IN MANAGEMENT OF AL AMYLOIDOSIS. [code = SKILLED NURSE FOR O/A AND SKILLED TEACHING IN MANAGEMENT OF AL AMYLOIDOSIS.] Future Scheduled Test SKILLED NU RSE TO INSTRUCT PATIENT/CAREGIVER ON SIGNS AND SYMPTOMS, RISK FACTORS, COMPLICATIONS, AND MANAGEMENT OF ATRIAL FIBRILLATION. [code = SKILLED NURSE TO INSTRUCT PATIENT/CAREGIVER ON SIGNS AND SYMPTOMS, RISK FACTORS, COMPLICATIONS, AND MANAGEMENT OF ATRIAL FIBRILLATION.] Future Scheduled Test SKILLED NU RSE TO PROVIDE TEACHING ON SIGNS AND SYMPTOMS AND MANAGEMENT OF HYPERTENSION. [code = SKILLED NURSE TO PROVIDE TEACHING ON SIGNS AND SYMPTOMS AND MANAGEMENT OF HYPERTENSION.] Future Scheduled Test SKILLED NU RSE TO INSTRUCT PATIENT/CAREGIVER ON PREVENTION OF SEPSIS, AND SIGNS AND SYMPTOMS OF SEPSIS TO REPORT. [code = SKILLED NURSE TO INSTRUCT PATIENT/CAREGIVER ON PREVENTION OF SEPSIS, AND SIGNS AND SYMPTOMS OF SEPSIS TO REPORT.] Future Scheduled Test SKILLED NU RSE TO OBTAIN BLOOD SPECIMEN VIA VENIPUNCTURE FOR CBC WITH DIFF, CMP, AND TACROLIMUS LEVEL TWICE WEEKLY. HCV RNA WEEKLY ON WEEK OF 06/17/25, 07/01/25, 07/15/25, 08/05/25, 09/02/25, 10/28/25, 03/17/26,AND 09/29/26. DIAGNOSIS AFTERCARE FOLLOWING HEART TRANSPLANT. OBTAIN LAB RESULTS AND FAX TO DR LONA AMOS [phone]. [code = SKILLED NURSE TO OBTAIN BLOOD SPECIMEN VIA VENIPUNCTURE FOR CBC WITH DIFF, CMP, AND TACROLIMUS LEVEL TWICE WEEKLY. HCV RNA WEEKLY ON WEEK OF 06/17/25, 07/01/25, 07/15/25, 08/05/25, 09/02/25, 10/28/25, 03/17/26,AND 09/29/26. DIAGNOSIS AFTERCARE FOLLOWING HEART TRANSPLANT. OBTAIN LAB RESULTS AND FAX TO DR LONA AMOS [phone].] Future Scheduled Test VIRTUAL SIT FREQUENCY: 6 PRN VIRTUAL VISITS MAY BE PERFORMED UTILIZING TELECOMMUNICATIONS SYSTEM TO OPTIMIZE SKILLED SERVICES FURNISHED ON THE PLAN OF CARE. SKILLED NURSE TO ESTABLISH SUPPORT MEASURES TO MINIMIZE RISK OF REHOSPITALIZATION, AND INSTRUCT PATIENT/CAREGIVER ON METHODS TO REDUCE AVOIDABLE HOSPITALIZATION. [code = VIRTUAL VISIT FREQUENCY: 6 PRN VIRTUAL VISITS MAY BE PERFORMED UTILIZING TELECOMMUNICATIONS SYSTEM TO OPTIMIZE SKILLED SERVICES FURNISHED ON THE PLAN OF CARE. SKILLED NURSE TO ESTABLISH SUPPORT MEASURES TO MINIMIZE RISK OF REHOSPITALIZATION, AND INSTRUCT PATIENT/CAREGIVER ON METHODS TO REDUCE AVOIDABLE HOSPITALIZATION.] Future Scheduled Test PATIENT DUTTA S A RISK OF HOSPITALIZATION AND ED USE. SKILLED NURSE TO ESTABLISH SUPPORT MEASURES TO MINIMIZE RISK OF HOSPITALIZATION AND ED USE, AND INSTRUCT PATIENT/CAREGIVER ON METHODS TO REDUCE AVOIDABLE HOSPITALIZATION AND ED USE. [code = PATIENT HAS A RISK OF HOSPITALIZATION AND ED USE. SKILLED NURSE TO ESTABLISH SUPPORT MEASURES TO MINIMIZE RISK OF HOSPITALIZATION AND ED USE, AND INSTRUCT PATIENT/CAREGIVER ON METHODS TO REDUCE AVOIDABLE HOSPITALIZATION AND ED USE.] Future Scheduled Test SKILLED NU RSE TO PROVIDE INSTRUCTION TO PATIENT/CAREGIVER RELATED TO DISCHARGE PLANNING. [code = SKILLED NURSE TO PROVIDE INSTRUCTION TO PATIENT/CAREGIVER RELATED TO DISCHARGE PLANNING.] Future Scheduled Test SKILLED NU RSE TO PERFORM ENVIRONMENTAL SAFETY RISK ASSESSMENT AND FALL RISK ASSESSMENT AND PROVIDE INSTRUCTION TO IMPLEMENT ENVIRONMENTAL SAFETY AND FALL PREVENTION STRATEGIES THROUGHOUT THE CERTIFICATION PERIOD. SKILLED NURSE WILL MAINTAIN SITUATIONAL AWARENESS AND WILL NOTIFY CLINICAL BLOCKER POLISHING AND PHYSICIAN/PROVIDER WITH ANY CHANGE IN CONDITION. [code = SKILLED NURSE TO PERFORM ENVIRONMENTAL SAFETY RISK ASSESSMENT AND FALL RISK ASSESSMENT AND PROVIDE INSTRUCTION TO IMPLEMENT ENVIRONMENTAL SAFETY AND FALL PREVENTION STRATEGIES THROUGHOUT THE CERTIFICATION PERIOD. SKILLED NURSE WILL MAINTAIN SITUATIONAL AWARENESS AND WILL NOTIFY CLINICAL BLOCKER POLISHING AND PHYSICIAN/PROVIDER WITH ANY CHANGE IN CONDITION.] Future Scheduled Test SKILLED NU RSE FOR OBSERVATION AND ASSESSMENT OF PATIENTS PAIN LEVEL AND EFFECTIVENESS OF PAIN MANAGEMENT REGIMEN. SKILLED NURSE TO INSTRUCT PATIENT/CAREGIVER REGARDING PHARMACOLOGIC AND NON-PHARMACOLOGIC PAIN CONTROL MEASURES. SKILLED NURSE TO REPORT TO PHYSICIAN IF PAIN LEVEL IS OUTSIDE OF ESTABLISHED PARAMETERS. [code = SKILLED NURSE FOR OBSERVATION AND ASSESSMENT OF PATIENTS PAIN LEVEL AND EFFECTIVENESS OF PAIN MANAGEMENT REGIMEN. SKILLED NURSE TO INSTRUCT PATIENT/CAREGIVER REGARDING PHARMACOLOGIC AND NON-PHARMACOLOGIC PAIN CONTROL MEASURES. SKILLED NURSE TO REPORT TO PHYSICIAN IF PAIN LEVEL IS OUTSIDE OF ESTABLISHED PARAMETERS.] Future Scheduled Test SKILLED NU RSE TO ASSESS PATIENT'S SKIN INTEGRITY AND INSTRUCT PATIENT/CAREGIVER ON MEASURES TO PREVENT PRESSURE ULCERS. [code = SKILLED NURSE TO ASSESS PATIENT'S SKIN INTEGRITY AND INSTRUCT PATIENT/CAREGIVER ON MEASURES TO PREVENT PRESSURE ULCERS.] Future Scheduled Test SN TO INST RUCT PATIENT/CAREGIVER ON HEART FAILURE MANAGEMENT UTILIZING THE MATTERS OF THE HEART SPECIALTY PROGRAM. [code = SN TO INSTRUCT PATIENT/CAREGIVER ON HEART FAILURE MANAGEMENT UTILIZING THE MATTERS OF THE HEART SPECIALTY PROGRAM.] Future Scheduled Test SKILLED NU RSE TO REVIEW PATIENT MEDICATIONS (PRESCRIPTION/OTC). INSTRUCT PATIENT/CAREGIVER ON ALL MEDICATIONS INCLUDING PURPOSE, WHEN TO TAKE, IMPORTANCE OF MEDICATION ADHERENCE, MONITORING OF EFFECTIVENESS, ADVERSE DRUG REACTIONS, POSSIBLE SIDE EFFECTS, AND WHEN TO NOTIFY AGENCY OR PHYSICIAN/PROVIDER OF ANY CONCERNS. [code = SKILLED NURSE TO REVIEW PATIENT MEDICATIONS (PRESCRIPTION/OTC). INSTRUCT PATIENT/CAREGIVER ON ALL MEDICATIONS INCLUDING PURPOSE, WHEN TO TAKE, IMPORTANCE OF MEDICATION ADHERENCE, MONITORING OF EFFECTIVENESS, ADVERSE DRUG REACTIONS, POSSIBLE SIDE EFFECTS, AND WHEN TO NOTIFY AGENCY OR PHYSICIAN/PROVIDER OF ANY CONCERNS.] Goal Patient Goal - TO HEAL AND R ETURN TO [facility] Goal Provider Goal - A PLAN OF CARE WILL BE ESTABLISHED THAT MEETS PATIENT'S LONG-TERM NEEDS AND INCLUDES PATIENT GOAL FOR HOME HEALTH. Goal Provider Goal - ADDITIONAL ORDERS WILL BE RECEIVED FROM ALTERNATE PHYSICIAN IN A TIMELY MANNER THROUGHOUT THE CERTIFICATION PERIOD. Goal Provider Goal - PATIENT/CAREGIVER WILL VERBALIZE/DEMONSTRATE MANAGEMENT OF AFTERCARE FOLLOWING HEART TRANSPLANT AND EXACERBATIONS WILL BE IDENTIFIED AND PROMPTLY REPORTED THROUGHOUT THE CERTIFICATION PERIOD. Goal Provider Goal - PATIENT/CAREGIVER WILL VERBALIZE/DEMONSTRATE UNDERSTANDING OF S/S OF INFECTION AND INFECTION CONTROL MEASURES. SIGNS AND SYMPTOMS OF INFECTION WILL BE IDENTIFIED AND PHYSICIAN NOTIFIED FOR PROMPT INTERVENTION THROUGHOUT THE CERTIFICATION PERIOD. Goal Provider Goal - WOUND CARE WILL BE COMPLETED AND PATIENT WILL HAVE IMPROVED WOUND STATUS EVIDENCED BY NO SIGNS AND SYMPTOMS OF INFECTION, DECREASED WOUND SIZE, AND/OR NO COMPLICATIONS BY THE END OF THE CERTIFICATION PERIOD. Goal Provider Goal - BLOOD SUGAR READING WILL BE OBTAINED ORDERED THROUGHOUT CERTIFICATION PERIOD. Goal Provider Goal - PATIENT/CAREGIVER WILL VERBALIZE SIGNS AND SYMPTOMS OF EXACERBATION OF HYPERGLYCEMIA DUE TO STEROID USE TO REPORT TO NURSE/PHYSICIAN THROUGHOUT THE CERTIFICATION PERIOD. Goal Provider Goal - PATIENT/CAREGIVER WILL VERBALIZE/DEMONSTRATE THE ABILITY TO MANAGE CIRCULATORY DISEASE PROCESS AND EXACERBATIONS WILL BE IDENTIFIED FOR EARLY INTERVENTION THROUGHOUT THE CERTIFICATION PERIOD. Goal Provider Goal - PATIENT/CAREGIVER WILL VERBALIZE UNDERSTANDING OF SIGNS AND SYMPTOMS, COMPLICATIONS, AND MANAGEMENT OF ATRIAL FIBRILLATION THROUGHOUT THE CERTIFICATION PERIOD. Goal Provider Goal - PATIENT/CAREGIVER WILL VERBALIZE SIGNS AND SYMPTOMS OF HYPERTENSION AND WILL BE ABLE TO DEMONSTRATE ABILITY TO MANAGE EXACERBATION BY END OF THE EPISODE. Goal Provider Goal - PATIENT WILL BE FREE FROM INFECTION AND PATIENT/CAREGIVER WILL VERBALIZE UNDERSTANDING OF SIGNS AND SYMPTOMS AND METHODS TO PREVENT SEPSIS BY END OF THE EPISODE. Goal Provider Goal - SKILLED NURSE TO PERFORM LAB PROCEDURE AND REPORT RESULTS TO PHYSICIAN. Goal Provider Goal - PATIENT/CAREGIVER WILL UTILIZE VIRTUAL VISITS TO ACHIEVE GOALS OUTLINED ON THE PLAN OF CARE. PATIENT WILL HAVE SUPPORT MEASURES ESTABLISHED TO PREVENT HOSPITALIZATION AND PATIENT/CAREGIVER WILL VERBALIZE/DEMONSTRATE METHODS TO REDUCE AVOIDABLE HOSPITALIZATION THROUGHOUT THE CERTIFICATION PERIOD. Goal Provider Goal - PATIENT WILL HAVE SUPPORT MEASURES ESTABLISHED TO PREVENT HOSPITALIZATION AND ED USE AND PATIENT/CAREGIVER WILL VERBALIZE/DEMONSTRATE METHODS TO REDUCE AVOIDABLE HOSPITALIZATION AND ED USE BY END OF EPISODE. Goal Provider Goal - PATIENT/CAREGIVER WILL VERBALIZE UNDERSTANDING OF DISCHARGE PLANNING INSTRUCTIONS BY DATE OF DISCHARGE. Goal Provider Goal - PATIENT/CAREGIVER WILL VERBALIZE/DEMONSTRATE EFFECTIVE ENVIRONMENTAL SAFETY AND FALL PREVENTION STRATEGIES, WILL REMAIN SAFE IN THE COMMUNITY, AND WILL BE FREE OF DANGER TO SELF AND OTHERS THROUGHOUT THE CERTIFICATION PERIOD. Goal Provider Goal - PATIENT/CAREGIVER WILL DEMONSTRATE UNDERSTANDING OF PHARMACOLOGIC AND NONPHARMACOLOGIC PAIN CONTROL MEASURES AND PATIENT WILL HAVE IMPROVEMENT IN PAIN INTERFERING WITH ACTIVITY EVIDENCED BY PAIN AT A LEVEL THAT IS ACCEPTABLE TO THE PATIENT AND PAIN LEVEL WITHIN ESTABLISHED PARAMETERS BY END OF CERTIFICATION PERIOD. Goal Provider Goal - PATIENT/CAREGIVER WILL VERBALIZE UNDERSTANDING OF PRESSURE ULCER PREVENTION BY END OF THE EPISODE. Goal Provider Goal - PATIENT/CAREGIVER WILL DEMONSTRATE MANAGEMENT OF HEART FAILURE A RESULT OF PARTICIPATION IN MATTERS OF THE HEART SPECIALTY PROGRAM. Goal Provider Goal - PATIENT/CAREGIVER WILL VERBALIZE UNDERSTANDING OF EDUCATION PROVIDED ON MEDICATIONS BY THE END OF THE CERTIFICATION PERIOD. Progress Notes Progress Notes <paragraph>[Visit Date: 2024 by LUTHER FORRESTER LPN]:</paragraph><paragraph>GOSIA WAS SEEN TODAY FOR A ROUTINE LONG-TERM VISIT. HE WAS ALERT AND ORIENTED X4, PLEASANT COOPERATIVE THROUGHOUT VISIT. HE REMAINS HOMEBOUND RELATED TO NEED OF ASSISTANCE OF ANOTHER PERSON AND ASSISTIVE DEVICE TO LEAVE HOME SAFELY. HE DENIED ANY FALLS, ER VISITS, OR CHANGES IN MEDICATION SINCE LAST VISIT. VITAL SIGNS STABLE. LUNG SOUNDS CLEAR AUSCULTATION BILATERALLY. DENIED ANY COUGH. VOICED COMPLAINTS OF SHORTNESS OF BREATH WITH AMBULATION AND WITH MINIMAL EXERTION/ACTIVITY. HEART RHYTHM REGULAR. DENIED ANY CHEST PAIN, LIGHTHEADEDNESS/DIZZINESS. VOICED HE FEELS PAIN TO CHEST INCISION SITE IS IMPROVING/LESSENING. BOWEL SOUNDS PRESENT X4 QUADRANTS. ABDOMEN SOFT, NONDISTENDED. HE DENIED ANY SIGNS OR SYMPTOMS OF A UTI. EDUCATION THIS VISIT FOCUSED ON MEDICATION UNDERSTANDING, SIGNS AND SYMPTOMS OF INFECTION, AND INFECTION PREVENTION CONTROL INCLUDING HAND HYGIENE. GOSIA VOICED UNDERSTANDING TO ALL EDUCATION AND DENIED ANY QUESTIONS. CALENDAR REVIEWED FOR UPCOMING VISITS. ACTION PLAN IS REVIEWED. HE WAS REMINDED THAT [facility]IN CARES AND TO CALL US FIRST WITH ANY QUESTIONS, CONCERNS, OR CHANGES IN CONDITION.</paragraph> Encounters Start Date/Time End Date/Time Encounter Type Admission Type Attending Clinicians Care Facility Care Department Encounter ID Discharge Date Discharge Status Discharge Condition Discharge Reason Percent Goals Met 2025-06-13 00:00:00 2025-08-11 00:00:00 Outpatient NEW ADMISSION [facility] [id number] 50.00
--- OUTSIDE RECORDS SUMMARY | 2025-07-08 10:52 | XMS_ITS | Encounter Summary ---
Author Organization [facility] Address [address] [place] [address] Phone Care Team Providers Care Highway Worker Name Role Phone Aunel Vargas Primary Care Provider [phone] Reason for Referral * Procedure (Routine) - Closed Specialty Diagnoses / Procedures Referred By Ericka amaya Referred To Contact Diagnoses ILD (interstitial lung disease) ([facility]) Procedures Pulmonary Function Test -[facility]- [facility]; Oxygen Assessment Titration, Spirometry, Spirometry with Bronchodilator, ABG, Lung Volumes, DLCO; Pleth with Airway Resistance; Room Air ABG; Spirometry Kathy Hewitt MD [address] [place] [address] Phone: tel: fax: Referral ID Status Reason Start Date Expiration Date Visits Re quested Visits Authorized [id number] Closed 07/05/2023 08/03/2024 1 1 Reason for Visit * Procedure (Routine) - Closed Specialty Diagnoses / Procedures Referred By Ericka amaya Referred To Contact Diagnoses ILD (interstitial lung disease) ([facility]) Procedures Pulmonary Function Test -[facility]- [facility]; Oxygen Assessment Titration, Spirometry, Spirometry with Bronchodilator, ABG, Lung Volumes, DLCO; Pleth with Airway Resistance; Room Air ABG; Spirometry Kathy Hewitt MD [address] [address] Phone: tel: fax: Referral ID Status Reason Start Date Expiration Date Visits Re quested Visits Authorized [id number] Closed 07/05/2023 08/03/2024 1 1 Encounter Details Date Type Department Care Team (Latest Contact Info) Description 07/19/2023 7:26 AM CDT Hospital Encounter [facility] PFT Lab [address] [place] [address] ILD (interstitial lung disease) (HCC) Social History Tobacco Use Types Packs/Day Years Used Date Smoking Tobacco: Never Passive Smoke Exposure: Never Smokeless Tobacco: Never [facility] Utilities Answer Date Recorded In the past 12 months has [employer] electric, gas, oil, or water company threatened [...] often do you attend chur ch or rastafari services? Never 04/10/2025 Do you belong to any clubs o r organizations such as pentecostal groups, unions, fraternal or athletic groups, or [...] place to sleep or slept in a fdc (including now)? No 11/28/2023 PHQ-9 Answer Date [...] any time in the past 12 m [facility], were you homeless or living in a fdc (including now)? No 04/10/2025 Personal Safety Answer Date Recorded Have you ever been in or are you currently in a harmful physical or emotional relationship or is someone making you feel afraid or unsafe? Denies 06/12/2025 Sex and Gender Information Value Date Recorded Sex Assigned at Not on file Legal Sex Male 12:25 PM REAL ESTATE APPRAISER Gender Identity Male 05/28/2021 8:44 PM CDT Sexual Orientation Straight 10/19/2022 9: 47 AM REAL ESTATE APPRAISER documented as of this encounter Functional Status * AUDIT-C Score Answer Date of Assessment Author 0 04/08/2025 8:18 AM CDT Emeli Soler RN * Question Answer Date of Assessment Author Q1: How often do you have a drink containing alcohol? Never 04/08/2025 8:18 AM CDT Emeli Solre RN Q2: How many drinks containing alcohol do you have on a typical day when you are drinking? Patient does not drink 05/02/2025 7:09 AM HIEUT Catarina Soria RN Q3: How often do you have six or more drinks on one occasion? Never 05/02/2025 7:09 AM CDT Catarina Soria, Amando N * Over the last 2 weeks, how often have you been bothered by any of the following problems? Question Answer Date of Assessment Author Feeling nervous, anxious, or on edge 0 04/10/2025 2:50 PM CDT Alexandra Colin, MINE WIRER Not being able to stop or control worrying 0 04/10/2025 2:50 PM CDT Alexandra Colin, MINE WIRER Worrying too much about different things 0 04/10/2025 2:50 PM CDT Alexandra Colin, MINE WIRER Trouble relaxing 0 04/10/2025 2:50 PM CDT Alexandra Marie, MINE WIRER Being so restless that it is hard to sit still 0 04/10/2025 2:50 PM CDT Alexandra Colin, MINE WIRER Becoming easily annoyed or irritable 0 04/10/2025 2:50 PM CDT Alexandra Colin, MINE WIRER Feeling afraid as if somethi ng awful might happen 0 04/10/2025 2:50 PM CDT Alexandra Colin LCSW MELONY-7 Total Score 0 04/10/2025 2:50 PM CDT Alexandra Colin LCSW documented as of this encounter Plan of Treatment Upcoming Encounters Date Type Department Care Team (Latest Contact Info) Description 07/15/2025 9:00 AM CDT Hospital Encounter [facility] [address] [place] [address] Yaakov Lawrence MD PhD [address] [place] [address] 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 07/15/2025 9:00 AM CDT - 07/15/2025 9:30 AM CDT Surgery Heart [facility] [place] [address] [address] [place] [address] Yaakov Lawrence MD PhD [address] [place] [address] ENDOMYOCARDIAL BIOPSY [id number] documented as of this encounter Procedures Procedure Name Priority Date/Time Associated Diagnosis Comments PULMONARY FUNCTION TEST (PFT) Routine 07/19/2023 8:57 AM CDT ILD (interstitial lung disease) (HCC) documented in this encounter Results * Pulmonary Function Test - (07/19/2023 8:57 AM CDT) FVC PRE 2.98 L [facility] FVC %PRE PRED 64 % [facility] FVC POST 3.17 L [facility] FVC %POST PRED 68 % [facility] FEV1 PRE 2.45 L [facility] FEV1 %PRE PRED 68 % [facility] FEV1 POST 2.70 L [facility] FEV1 %POST PRED 75 % [facility] FEV1/FVC PRE 82.2 % [facility] FEV1/FVC POST 85.3 % [facility] FRC PL PRE 2.64 L [facility] FRC PL %PRE PRED 68 % [facility] RV PRE 1.72 L [facility] RV %PRE PRED 73 % [facility] TLC PRE 4.81 L [facility] TLC %PRE PRED 65 % [facility] DLCO PRE 20.9 ml/min/mmH g [facility] DLCO %PRE PRED 71 % [facility] FIO2 % 21.00 % [facility] PaO2 102.0 mmHg [facility] PaCO2 39.0 mmHg [facility] pH 7.46 [facility] A-aDO2 POC -1.0 mmHg [facility] METHGB % 0.6 % [facility] COHb POC 1.1 % [facility] HCO3 27.7 mEq/L [facility] Anatomical Region Laterality Modality PFT 07/19/2023 [...] and %HbO2 is age dependent. However, the [facility] Pulmonary Function Laboratory defines hypoxemia as a PO2 <55 or a %HbO2 <89. Narrative 07/20/2023 10:52 AM CDT Table formatting from the original result was not included. [facility] Division of Pulmonary & Critical Care Medicine [address] [place] [address]; [place] [address] [facility]; [place] [address]; [phone] Pulmonary Function Laboratory Pulmonary Stress Test Simple/Oxygen Assessment Patient: Jayjay Roland Date: 07/19/2023 : 1965 Ht: 72 IN Wt: 200 LBS Time (min) Distance (ft)/ Olivier O2 L/M SpO2 HR Kahdar* BP FEV1 % Pred Rest: RA 99 [...] Work [distance (m) x body wt (kg)]: 75583 kg.m (normal >60,000kg.m) Oxygen required to maintain SpO2 greater than 90% during six minutes of walkin L/M Comments: [id number] STANDARDS- NO STOPS Interpretation: Breathing room air, [...] with the written final report. PFT performed at:->[facility] Adult PFT Lab- 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 auris Comment:04/15/25: Negative C. Auris swabChanda Schuler 04/17/2025 This flag is used to [...] documented as of this encounter Care Teams Highway Worker Relationship Specialty Start Date End Date Anuel Vargas DO PCP - General Internal Medicine 10/19/22 documented as of this encounter
--- OUTSIDE RECORDS SUMMARY | 2025-07-08 10:52 | XMS_ITS | Clinical Summary ---
Author Organization [facility] Address [address] [place] [address] Care Team Providers Care Lead Cashier Name Role Phone Unavailable Primary Care Provider Unavailabl e Social History Tobacco Use Types Packs/Day Years Used Date Smoking Tobacco: Never Assessed Sex and Gender Information Value Date Recorded Sex Assigned at Not on file Legal Sex Male 3:26 PM PATIENT ASSISTANT Gender Identity Not on file Sexual Orientation [...] (1 - 1-dose 75+ series) 2039 Insurance [facility]
--- OUTSIDE RECORDS SUMMARY | 2025-07-08 10:52 | XMS_ITS | Clinical Summary ---
Author Organization [facility] Address [address] [place] [address] Care Team Providers Care Malt House Loader Name Role Phone Unavailable Primary Care Provider Unavailabl e Source Comments [facility],non-owned Affiliates and Associated Physician Practices is amultiple site organization consisting of ambulatory clinics and hospital sitesin [place], [place], [place] and [place]. This disclosure is being madepursuant to the Care Everywhere program and may not contain all information available regarding this patient. Last updated 18.[facility] Social History Tobacco Use Types Packs/Day Years [...]
--- OUTSIDE RECORDS SUMMARY | 2025-07-08 10:53 | XMS_ITS | Continuity of Care Document ---
Author Name [facility] Organization [facility] Care Team Providers Care Scrap Drop Operator Name Role Phone [facility] Unavailable Unavailable Problems Combined list of problems [...] visit for: routine adult H&P Inactive Condition [facility] visit for: administrative purpose Inactive Condition DoD [...] LEFT Active Condition 1. Given exercises from [facility] to begin immediately.2. Patient already moving around and walking- so no immobilization recommended.3. We did not have Air Cast in clinic and patient declined Rx for the same.4. Advised rest, ice, elevation, and Motrin for pain if needed.- patient has motrin at home.5. f/u if no better in 2 weeks.[facility] d/w Dr. Enamorado. [facility] Need For Vaccination Yellow Fever Inactive Condition [facility] [place] amyloidosis Active Condition [facility] Back pain Active Condition . [facility] Exposure to potentially hazardous substance Active Condition . [facility] Goiter Active Condition [facility] Gout Active Condition [facility] HFrEF - heart failure with reduced ejection fraction Active Condition [facility] Hypertension Active Condition . 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 [facility] Diagnosis: ICD-10-CM E27.8 Other specified disorders of adrenal gland Active Diagnosis [facility] Diagnosis: ICD-10-CM Z76.82 Awaiting organ transplant status Active Diagnosis [facility] Diagnosis: ICD-10-CM Z01.20 Encounter for dental exam and cleaning w/o abnormal findings Active Diagnosis [facility] Diagnosis: ICD-10-CM I50.9 Heart failure, unspecified Active Diagnosis [facility] Diagnosis: ICD-10-CM I50.20 Unspecified systolic (congestive) heart failure Active Diagnosis [facility] Diagnosis: ICD-10-CM 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 [facility] Diagnosis: ICD-10-CM J06.9 Acute upper respiratory infection, unspecified Active Diagnosis [facility] Diagnosis: ICD-10-CM Z71.81 Spiritual or congregation counseling Active Diagnosis [facility] Diagnosis: ICD-10-CM I48.19 Other persistent atrial fibrillation Active Diagnosis [facility] Diagnosis: ICD-10-CM Z01.818 Encounter for other preprocedural examination Active Diagnosis [facility] Diagnosis: ICD-10-CM I10 Essential (primary) hypertension Active Diagnosis [facility] Diagnosis: ICD-10-CM I95.9 Hypotension, unspecified Active Diagnosis [facility] Diagnosis: ICD-10-CM I50.22 Chronic systolic (congestive) heart failure Active Diagnosis [facility] Diagnosis: ICD-10-CM I50.21 Acute systolic (congestive) heart failure Active Diagnosis [facility] Diagnosis: ICD-10-CM Z55.9 Problems related to education and literacy, unspecified Active Diagnosis [facility] Diagnosis: ICD-10-CM I50.23 Acute on chronic systolic (congestive) heart failure Active Diagnosis [facility] Diagnosis: ICD-10-CM I50.43 Acute on chronic combined systolic and diastolic hrt fail Active Diagnosis [facility] Diagnosis: ICD-10-CM I50.41 Acute combined systolic and diastolic (congestive) hrt fail Active Diagnosis [facility] Admit Reason: ACUTE ON CHRONIC HEART FAILURE Active Diagnosis [facility] Medications Combined list of outpatient medications [...] A DAY ORAL ACTIVE Jennifer JACOBS 2023 [facility] albuterol 90 mcg/inh inhalation aerosol INHALE 2 PUFFS EVERY SIX HOURS NEEDED FOR WHEEZING , # 25.5 g, 1 total refill(s ), Acute Complet ed 10/24/20232022 25.5 Ambulat ory Pharmac y APIXABAN 5 MG ORAL TAB Take or use exactly as directed .Obtain advice for OTCs.Ana Laura ck with your doctor before becoming . 05/01/2025 [id number] 2023 60 [employer] Raman BOYCE ([facility] apixaban 5 mg tablet 5 mg, Oral, BID, # 60 EA, 11 total refill(s ), Hard Stop Oral (given by mouth) Complet ed 05/01/2025 5 2024 60.0 Ambulat ory Pharmac y APIXABAN 5MG TAB TAKE ONE TABLET BY MOUTH TWICE A DAY ORAL ACTIVE MARÍA VERGARA 2023 [facility] N atenolol 25 mg oral tablet TAKE ONE TABLET DAILY, # 90 EA, 1 total refill(s ), Acute Complet ed 12/09/2023 3 2023 90.0 Ambulat ory Pharmac y BENZONATATE 200MG CAP TAKE ONE CAPSULE BY MOUTH THREE TIMES A DAY NEEDED FOR COUGH ORAL 11/26/2024 [id number] SYNaraSAL ORGE R 2023 15 [facility] bortezomib 1.3 mg/m2, IV Drip (Intrave nous), every week, 0 total refill(s ), Maintena nce Intrav enous Drip Ordered 20235C-3 [facility] CHLORHEXIDI NE GLUCONATE 0.12% RINSE,ORAL SWISH AND SPIT 15 ML BY MOUTH TWICE A DAY SWISH IN MOUTH UNDILUTE D FOR 30 SECONDS THEN SPIT IN SINK. AVOID CONTACT WITH EYES. ORAL ACTIVE 01/26/2026 [id number] 5 Barrie CROSS 2024 480 [facility] cycloPHOSph amide 1 mg/kg, Oral, Daily, 0 total refill(s ), Maintena nce Oral (given by mouth) Ordered 20235C-3 [facility] cycloSPORIN E 0.05% ophthalmic [...] or use exactly as directed . 05/01/2025 [id number] 4 2023 30 [facility] Raman BOYCE ([facility] digoxin 125 mcg (0.125 mg) tablet 125 [...] (given by mouth) Ordered 2023 0055C-3 75th [facility] DROXIDOPA 300MG CAP,ORAL TAKE ONE CAPSULE BY MOUTH THREE TIMES A DAY FOR HYPOTENS ION ORAL ACTIVE 03/05/2026 [id number] MARÍA VERGARA 2024 90 [facility] DROXIDOPA 300MG CAP,ORAL TAKE ONE CAPSULE BY MOUTH THREE TIMES A DAY FOR HYPOTENS ION ORAL DISCONT INUED 05/09/2025 [id number] MARÍA VERGARA 2023 90 [facility] EMPAGLIFLOZ IN 10 MG ORAL TAB Check with your doctor before becoming . 10/03/2024 [id number] 3 [address] [place] [address] Raman BOYCE ([facility]) empaglifloz in 10 mg tablet = 1 tab(s), Oral, Daily, # 90 EA, 3 total refill(s ), Hard Stop Oral (given by mouth) Ordered 11/29/2025 5 2024 90.0 Ambulat ory Pharmac y EMPAGLIFLOZ IN TAB,ORAL TAKE 10MG BY MOUTH ONCE A DAY ORAL ACTIVE Jennifer JACOBS 2023 [facility] EPLERENONE 50MG TAB TAKE ONE-HALF TABLET BY MOUTH EVERY MORNING FOR HEART FAILURE ORAL ACTIVE 03/28/2026 [id number] MARÍA VERGARA 2024 45 [facility] esomeprazol e DR 40 mg [...] (given by mouth) Ordered 2023 270.0 0055C-[address] [place] [address]- [place] midodrine 10 mg tablet See Instruct ions, [...] A DAY ORAL ACTIVE Jennifer JACOBS 2023 [facility] ondansetron 4 mg ODT [...] 3 DAYS IN A ROW. NASAL 11/26/2024 [id number] SAL TELLEZ R 2023 30 [facility] pantoprazol e 40 mg oral [...] A MEAL ORAL ACTIVE KAROLINA CHACON 2021 [facility] POLYETHYLEN E GLYCOL 3350 PWDR,ORAL MIX AND DRINK 1 CAPFUL BY MOUTH ONCE A DAY NEEDED ORAL ACTIVE Jennifer JACOBS 2023 [facility] Potassium Chloride (Eqv-K-Tab) Oral, BID, 0 total refill(s ), Maintena nce Oral (given by mouth) Ordered 2023 0055C-[address] [place] [address] potassium chloride ER 10 mEq tablet (dispersibl e) 20 mEq, Oral, Daily, # 180 EA, 3 total refill(s ), Hard Stop Oral (given by mouth) Discont inued 01/31/2024 4 2023 180.0 Ambulat ory Pharmac y PROCHLORPER AZINE MALEATE 10MG TAB TAKE ONE TABLET BY MOUTH EVERY 6 HOURS NEEDED ORAL ACTIVE Jennifer JACOBS 2023 [facility] SODIUM FLUORIDE 1.1% TOOTHPASTE USE DIRECTED BY MOUTH TWICE A DAY TOOTHPAS TE (DO NOT SWALLOW) ORAL ACTIVE 01/26/2026 [id number] Barrie CROSS 2024 51 [facility] N spironolact one 25 mg tablet 25 mg, Oral, Daily, # 90 EA, 2 total refill(s ), Hard Stop Oral (given by mouth) Complet ed 07/14/2024 4 2023 90.0 Ambulat ory Pharmac y torsemide Oral, Daily, 0 total refill(s ), Maintena nce Oral (given by mouth) Ordered 2023 0055C-[address] [place] [address] torsemide 20 mg tablet 20 mg, Oral, Daily, # 30 EA, 3 total refill(s ), Hard Stop Oral (given by mouth) Complet ed 07/06/2025 5 2024 30.0 Ambulat ory Pharmac [...] 2023 180.0 Ambulat ory Pharmac y TORSEMIDE 20MG TAB TAKE ONE TABLET BY MOUTH THREE TIMES PER WEEK ORAL ACTIVE 09/23/2025 [id number] MARÍA VERGARA 2024 36 [facility] TORSEMIDE TAB TAKE 20MG BY MOUTH ONCE A DAY FOR 0 AND TAKE 10 BY MOUTH NIGHTLY ORAL ACTIVE MARÍA VERGARA 2023 [facility] Xifaxan 550 mg tablet 550 mg, [...] Known Allergies Drug allergy (disorder) active 02/27/2008 [facility] Immunizations Combined list of available immunizations from the Department of Defense and Veterans Affairs facilities. 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 Comments Source COVID-19, mRNA, LNP-S, PF, 30 mcg/0.3 mL dose, hannah-sucrose 2021 [employer] [place] (PFR) Not Given COVID-19, mRNA, LNP-S, PF, 30 mcg/0.3 mL dose, hannah-sucr ose DoD COVID-19 (PFIZER), MRNA, LNP-S, PF, 30 MCG/0.3 ML DOSE, HANNAH-SUCROSE (AGES 12+ YEARS) 3 2021 217 complet ed [facility] zoster vaccine recombinant 1 2021 Unknown, Provider [id number] [address] [place] [address] (SKB) complet ed zoster vaccine recombina nt DoD ZOSTER RECOMBINANT 2 2021 187 complet ed [facility] zoster vaccine recombinant 1 2021 Unknown, Provider [id number] [address] [place] [address] (SKB) complet ed zoster vaccine recombina nt DoD ZOSTER RECOMBINANT 1 2021 187 complet ed [facility] COVID-19, mRNA, LNP-S, PF, 30 mcg/0.3 mL dose 2021 EHSAN, [employer] [place] (PFR) Not Given COVID-19, mRNA, LNP-S, PF, 30 mcg/0.3 mL dose DoD COVID-19 (PFIZER), MRNA, LNP-S, PF, 30 MCG/0.3 ML DOSE, HANNAH-SUCROSE (AGES 12+ YEARS) 3 2021 217 complet ed [facility] Influenza, injectable, MDCK, preservative free, quadrivalent 2020 ALUL, () Not Given Influenza , injectabl e, MDCK, preservat meme free, quadrival ent DoD INFLUENZA, UNSPECIFIED FORMULATION 2020 88 complet ed [facility] COVID-19 (PFIZER), MRNA, LNP-S, PF, 30 MCG/0.3 ML DOSE 2 2020 208 complet ed PFR; [id number]; 1 [facility] COVID-19 ([employer] MRNA, LNP-S, PF, 30 MCG/0.3 ML DOSE 1 2020 208 complet ed PFR; [id number]; 1 [facility] Influenza, injectable, MDCK, preservative free, quadrivalent 2019 ALUL, () Not Given Influenza , injectabl e, MDCK, preservat meme free, quadrival ent DoD influenza, injectable, quadrivalent, preservative free 2018 ALUL, () Not Given influenza , injectabl e, quadrival ent, preservat meme free DoD tetanus, diphtheria, acellular pertu is 2012 [id number] 115 [employer] complet ed tetanus, diphtheri a, acellular pertussis 05/03/13 Given Ambulat ory Pharmac y tetanus toxoid, reduced diphtheria toxoid, and acellular pertu is vaccine, adsorbed 1 2012 [id number] 4BA [address] [place] ([place]) complet ed tetanus toxoid, reduced diphtheri a toxoid, and acellular pertussis vaccine, adsorbed DoD TDAP 2012 115 complet ed documenta tion in [facility] yellow fever vaccine 2004 zzLef t Arm [id number] sanofi pasteur complet ed yellow fever vaccine 04/07/05 Given Ambulat ory Pharmac y yellow fever vaccine 1 2004 Unknown, Provider [id number] Sanofi Pasteur (PMC) complet ed yellow fever vaccine DoD vaccinia (smallpox) vaccine 2002 [id number] [employer] complet ed vaccinia (smallpox ) vaccine 12/31/02 Given Ambulat ory Pharmac y vaccinia (smallpox) vaccine 0 2002 Unknown, Provider [id number] ed vaccinia (smallpox ) vaccine [...] Specimen Type: BLOOD Comment: Test Performed by: [id number] Meter #: [id number] Ordering Provider: ADAMA CHACON Report Released Date/Time: Feb 26, 2025 06:50 AM Reporting Lab: [facility] [address] [facility] [address] Performing Lab: [facility] [address] [facility] [address] [facility] URINE DRUG SCREEN (STL) ETHANOL [MASS/VOLU ME] IN URINE <10mg/dL 0 - 9 02/12 Specimen Type: URINE Comment: The cut-off value for Fentanyl was laboratory developed and its performance characteris tics confirmed by the [facility] laboratory thru method comparison with reference laboratory and medication chart review. The laboratory is regulated under CLIA as qualified to perform high-comple xity testing. Fentanyl is used for clinical purposes in conjunction with other laboratory tests. Ordering Provider: HENNY ALEGRIA Report Released Date/Time: Feb 01, 2025 12:11 PM Reporting Lab: [facility] [address] [facility] [address] Performing Lab: [facility] [address] [facility] [address] [facility] URINE DRUG SCREEN (STL) AMPHETAMIN E [PRESENCE] IN URINE BY SCREEN METHOD Negative ng/mL 02/12 Specimen Type: URINE Comment: The cut-off value for Fentanyl was laboratory developed and its performance characteris tics confirmed by the [facility] laboratory thru method comparison with reference laboratory and medication chart review. The laboratory is regulated under CLIA as qualified to perform high-comple xity testing. Fentanyl is used for clinical purposes in conjunction with other laboratory tests. Ordering Provider: HENNY ALEGRIA Report Released Date/Time: Feb 01, 2025 12:11 PM Reporting Lab: [facility] [address] [facility] [address] Performing Lab: [place] [address] [facility] [address] [facility] URINE DRUG SCREEN (STL) BENZOYLECG ONINE [PRESENCE] IN URINE Negative ng/mL 02/12 Specimen Type: URINE Comment: The cut-off value for Fentanyl was laboratory developed and its performance characteris tics confirmed by the [facility] laboratory thru method comparison with reference laboratory and medication chart review. The laboratory is regulated under CLIA as qualified to perform high-comple xity testing. Fentanyl is used for clinical purposes in conjunction with other laboratory tests. Ordering Provider: HENNY ALEGRIA Report Released Date/Time: Feb 01, 2025 12:11 PM Reporting Lab: [facility] [address] [facility] [address] Performing Lab: [place] [id number] [facility] [address] [facility] URINE DRUG SCREEN (STL) BENZODIAZE PINES [PRESENCE] IN URINE BY SCREEN METHOD Negative ng/mL 02/12 Specimen Type: URINE Comment: The cut-off value for Fentanyl was laboratory developed and its performance characteris tics confirmed by the [facility] laboratory thru method comparison with reference laboratory and medication chart review. The laboratory is regulated under CLIA as qualified to perform high-comple xity testing. Fentanyl is used for clinical purposes in conjunction with other laboratory tests. Ordering Provider: HENNY ALEGRIA Report Released Date/Time: Feb 01, 2025 12:11 PM Reporting Lab: [address] [address] Performing Lab: [place] [address] [facility] [address] [facility] URINE DRUG SCREEN (STL) CANNABINOI DS [PRESENCE] IN URINE BY SCREEN METHOD Negative ng/mL 02/12 Specimen Type: URINE Comment: The cut-off value for Fentanyl was laboratory developed and its performance characteris tics confirmed by the [facility] laboratory thru method comparison with reference laboratory and medication chart review. The laboratory is regulated under CLIA as qualified to perform high-comple xity testing. Fentanyl is used for clinical purposes in conjunction with other laboratory tests. Ordering Provider: HENNY ALEGRIA Report Released Date/Time: Feb 01, 2025 12:11 PM Reporting Lab: [place] [address] [facility] [address] Performing Lab: [place] [address] [facility] [address] [facility] URINE DRUG SCREEN (STL) METHADONE [PRESENCE] IN URINE Negative ng/mL 02/12 Specimen Type: URINE Comment: The cut-off value for Fentanyl was laboratory developed and its performance characteris tics confirmed by the [facility] laboratory thru method comparison with reference laboratory and medication chart review. The laboratory is regulated under CLIA as qualified to perform high-comple xity testing. Fentanyl is used for clinical purposes in conjunction with other laboratory tests. Ordering Provider: HENNY ALEGRIA Report Released Date/Time: Feb 01, 2025 12:11 PM Reporting Lab: [address] [address] Performing Lab: [facility] [address] [facility] [address] [facility] URINE DRUG SCREEN (STL) OPIATES [PRESENCE] IN URINE BY SCREEN METHOD Negative ng/mL 02/12 Specimen Type: URINE Comment: The cut-off value for Fentanyl was laboratory developed and its performance characteris tics confirmed by the [facility] laboratory thru method comparison with reference laboratory and medication chart review. The laboratory is regulated under CLIA as qualified to perform high-comple xity testing. Fentanyl is used for clinical purposes in conjunction with other laboratory tests. Ordering Provider: HENNY ALEGRIA Report Released Date/Time: Feb 01, 2025 12:11 PM Reporting Lab: [place] [address] [facility] [address] Performing Lab: [place] [address] [facility] [address] [facility] URINE DRUG SCREEN (STL) CREATININE [MASS/VOLU ME] IN URINE 88.9 mg/dL 63 - 166 02/12 Specimen Type: URINE Comment: The cut-off value for Fentanyl was laboratory developed and its performance characteris tics confirmed by the [facility] laboratory thru method comparison with reference laboratory and medication chart review. The laboratory is regulated under CLIA as qualified to perform high-comple xity testing. Fentanyl is used for clinical purposes in conjunction with other laboratory tests. Ordering Provider: HENNY ALEGRIA Report Released Date/Time: Feb 01, 2025 12:11 PM Reporting Lab: [place] [address] [facility] [address] Performing Lab: [address] [address] [facility] URINE DRUG SCREEN (STL) OXYCODONE CUTOFF [MASS/VOLU ME] IN URINE FOR SCREEN METHOD Negative ng/mL 02/12 Specimen Type: URINE Comment: The cut-off value for Fentanyl was laboratory developed and its performance characteris tics confirmed by the [facility] laboratory thru method comparison with reference laboratory and medication chart review. The laboratory is regulated under CLIA as qualified to perform high-comple xity testing. Fentanyl is used for clinical purposes in conjunction with other laboratory tests. Ordering Provider: HENNY ALEGRIA Report Released Date/Time: Feb 01, 2025 12:11 PM Reporting Lab: [facility] [address] [facility] [address] Performing Lab: [facility] [address] [facility] [address] [facility] URINE DRUG SCREEN (STL) BUPRENORPH INE [PRESENCE] IN URINE Negative ng/mL 02/12 Specimen Type: URINE Comment: The cut-off value for Fentanyl was laboratory developed and its performance characteris tics confirmed by the [facility] laboratory thru method comparison with reference laboratory and medication chart review. The laboratory is regulated under CLIA as qualified to perform high-comple xity testing. Fentanyl is used for clinical purposes in conjunction with other laboratory tests. Ordering Provider: HENNY ALEGRIA Report Released Date/Time: Feb 01, 2025 12:11 PM Reporting Lab: [facility] [address] [facility] [address] Performing Lab: [facility] [address] [facility] [address] [facility] URINE DRUG SCREEN (STL) FENTANYL [PRESENCE] IN URINE Negative ng/mL 02/12 Specimen Type: URINE Comment: The cut-off value for Fentanyl was laboratory developed and its performance characteris tics confirmed by the [facility] laboratory thru method comparison with reference laboratory and medication chart review. The laboratory is regulated under CLIA as qualified to perform high-comple xity testing. Fentanyl is used for clinical purposes in conjunction with other laboratory tests. Ordering Provider: HENNY ALEGRIA Report Released Date/Time: Feb 01, 2025 12:11 PM Reporting Lab: [facility] [address] [facility] [address] Performing Lab: [facility] [address] [facility] [address] [facility] URINALYS IS (STL-PB) COLOR OF URINE Light-Ye llow 02/12 Specimen Type: URINE No comment entered. Ordering Provider: HENNY ALEGRIA Report Released Date/Time: Feb 01, 2025 12:11 PM Reporting Lab: [address] [address] Performing Lab: [address] [address] [facility] URINALYS IS (STL-PB) BILIRUBIN. TOTAL [PRESENCE] IN URINE BY TEST STRIP Negative mg/dL 02/12 Specimen Type: URINE No comment entered. Ordering Provider: HENNY ALEGRIA Report Released Date/Time: Feb 01, 2025 12:11 PM Reporting Lab: [address] [address] Performing Lab: [address] [address] [facility] URINALYS IS (STL-PB) PH OF URINE BY TEST STRIP 6.5 5.0 - 8.0 02/12 Specimen Type: URINE No comment entered. Ordering Provider: HENNY ALEGRIA Report Released Date/Time: Feb 01, 2025 12:11 PM Reporting Lab: [place] [address] [facility] [address] Performing Lab: [address] [address] [facility] URINALYS IS (STL-PB) LEUKOCYTES [#/AREA] IN URINE SEDIMENT BY MICROSCOPY HIGH POWER FIELD 1 /[HPF] 0 - 5 02/12 Specimen Type: URINE No comment entered. Ordering Provider: HENNY ALEGRIA Report Released Date/Time: Feb 01, 2025 12:11 PM Reporting Lab: [place] [address] [facility] [address] [address]: [address] [facility] [address] [facility] [facility] URINALYS IS (STL-PB) ERYTHROCYT ES [#/VOLUME] IN URINE SEDIMENT BY MICROSCOPY HIGH POWER FIELD <1/[HPF] 0 - 5 02/12 Specimen Type: URINE No comment entered. Ordering Provider: HENNY ALEGRIA Report Released Date/Time: Feb 01, 2025 12:11 PM Reporting Lab: [place] [address] [address] [facility] [address] Performing Lab: [place] [address] [facility] [address] [facility] URINALYS IS (STL-PB) APPEARANCE OF URINE Clear 02/12 Specimen Type: URINE No comment entered. Ordering Provider: HENNY ALEGRIA Report Released Date/Time: Feb 01, 2025 12:11 PM Reporting Lab: [place] [address] [facility] [address] Performing Lab: [place] [address] [facility] [address] [facility] URINALYS IS (STL-PB) NITRITE [PRESENCE] IN URINE BY TEST STRIP Negative mg/dL 02/12 Specimen Type: URINE No comment entered. Ordering Provider: HENNY ALEGRIA Report Released Date/Time: Feb 01, 2025 12:11 PM Reporting Lab: [place] [address] [address] [facility] [address] Performing Lab: [address] [address] [facility] URINALYS IS (STL-PB) GLUCOSE [MASS/VOLU ME] IN URINE BY TEST STRIP 1000 mg/dL 02/12 H Specimen Type: URINE No comment entered. Ordering Provider: HENNY ALEGRIA Report Released Date/Time: Feb 01, 2025 12:11 PM Reporting Lab: [place] [address] [facility] [address] [address]: [address] [facility] [address] [facility] URINALYS IS (STL-PB) PROTEIN [MASS/VOLU ME] IN URINE BY TEST STRIP 100 mg/dL 02/12 H Specimen Type: URINE No comment entered. Ordering Provider: HENNY ALEGRIA Report Released Date/Time: Feb 01, 2025 12:11 PM Reporting Lab: [address] [address] Performing Lab: [address] [address] [facility] URINALYS IS (STL-PB) URN.UROBIL INOGEN Normalmg /dL 02/12 Specimen Type: URINE No comment entered. Ordering Provider: HENNY ALEGRIA Report Released Date/Time: Feb 01, 2025 12:11 PM Reporting Lab: [address] [address] Performing Lab: [address] [address] [facility] URINALYS IS (STL-PB) HEMOGLOBIN [MASS/VOLU ME] IN URINE BY TEST STRIP Negative mg/dL 02/12 Specimen Type: URINE No comment entered. Ordering Provider: HENNY ALEGRIA Report Released Date/Time: Feb 01, 2025 12:11 PM Reporting Lab: [address] [address] Performing Lab: [address] [address] [facility] URINALYS IS (STL-PB) KETONES [MASS/VOLU ME] IN URINE BY TEST STRIP Negative mg/dL 02/12 Specimen Type: URINE No comment entered. Ordering Provider: HENNY ALEGRIA Report Released Date/Time: Feb 01, 2025 12:11 PM Reporting Lab: [address] [address] Performing Lab: [place] [address] [facility] [address] [facility] URINALYS IS (STL-PB) URN.LEUK.E ST. Negative mg/dL 02/12 Specimen Type: URINE No comment entered. Ordering Provider: HENNY ALEGRIA Report Released Date/Time: Feb 01, 2025 12:11 PM Reporting Lab: [place] [address] [place] [address] Performing Lab: [place] [id number] URINALYS IS (STL-PB) SPECIFIC GRAVITY OF URINE 1.046 02/12 H Specimen Type: URINE No comment entered. Ordering Provider: HENNY ALEGRIA Report Released Date/Time: Feb 01, 2025 12:11 PM Reporting Lab: [place] [address] Performing Lab: [address] [phone] QUANTIFE RINA-TB,4 TUBE .NIL - QUANTIFERO N [...] For additional information , please refer to http://Areshay.Ritz [employer] Wolf Camera & Image/faq/FA Q204 (This link is being provided for information / educational purposes only.) Test Performed by [employer] [place], [address] [place], [place] Jah Chapa M.D., Ph.D., Director of Laboratorie s , CLIA [id number] Ordering Provider: HENNY ALEGRIA Report Released Date/Time: Feb 01, 2025 12:11 PM Reporting Lab: [facility] [address] [facility] [address] Performing Lab: [facility] [id number] [place] [address] [facility] QUANTIFE RINA-TB,4 TUBE .MITOGEN-N [place] 7.90 [...] additional information , please refer to http://educ ation.[email or web address] .AppPowerGroup/faq/FA Q204 (This link is being provided for information / educational purposes only.) Test Performed by [employer] [place], [address] [place], [place] Jah Chapa M.D., Ph.D., Director of Laboratorie s , CLIA [id number] Ordering Provider: HENNY ALEGRIA Report Released Date/Time: Feb 01, 2025 12:11 PM Reporting Lab: [facility] [address] [facility] [address] Performing Lab: [facility] [address] [place] [address] [facility] QUANTIFE RINA-TB,4 TUBE .QUANTIFER ON NEGATIVE [...] additional information , please refer to http://educ ation.BragThis.com .com/faq/FA Q204 (This link is being provided for information / educational purposes only.) Test Performed by [employer], [employer] [facility], [address] [place] [address] Jah Chapa M.D., Ph.D., Director of Laboratorie s , [place] [id number] Ordering Provider: HENNY ALEGRIA Report Released Date/Time: Feb 01, 2025 12:11 PM Reporting Lab: [facility] [address] [facility] [address] Performing Lab: [facility] [address] [place] [address] [facility] QUANTIFE RINA-TB,4 TUBE .TB1-NIL 0.00 [IU]/mL [...] additional information , please refer to http://educ ation.BragThis.com .com/faq/FA Q204 (This link is being provided for information / educational purposes only.) Test Performed by [employer], [employer] [facility], [address] [place] [address] Jah Chapa M.D., Ph.D., Director of Laboratorie s , [place] [id number] Ordering Provider: HENNY ALEGRIA Report Released Date/Time: Feb 01, 2025 12:11 PM Reporting Lab: [facility] [address] [place] [address] Performing Lab: [facility] [address] [place] [address] [facility] QUANTIFE RINA-TB,4 TUBE .TB2-NIL <0.00[IU ]/mL [...] additional information , please refer to http://educ ation.[email or web address] .AppPowerGroup/faq/FA Q204 (This link is being provided for information / educational purposes only.) Test Performed by [employer] [place], [address] [place] [address] Jah Chapa M.D., Ph.D., Director of Laboratorie s , CLIA [id number] Ordering Provider: HENNY ALEGRIA Report Released Date/Time: Feb 01, 2025 12:11 PM Reporting Lab: [address] [address] Performing Lab: [address] [facility] NICOTINE AND METABOLI WICHO NICOTINE [MASS/VOLU ME] IN SERUM OR PLASMA <2ng/mL 02/12 Specimen Type: SERUM Comment: Reference Ranges(ng/m L): Non-Smoker Active Tobacco User < or = to 4 2-10 Reference Ranges(ng/m L): Non-Smoker Active Tobacco User < or = to 8 16-145 This test was developed and its analytical performance characteris tics have been determined by [email or web address] [place], [place]. It has not been cleared or approved by the U.S. Food and Drug Administrat ion. This assay has been validated pursuant to the CLIA regulations and is used for clinical purposes. Test Performed by [email or web address] [place], [address] [place] [address] Jah Chapa M.D., Ph.D., Director of Laboratorie s , CLIA [id number] Ordering Provider: HENNY ALEGRIA Report Released Date/Time: Feb 01, 2025 12:11 PM Reporting Lab: [address] [address] Performing Lab: [address] [facility] NICOTINE AND METABOLI WICHO COTININE [MASS/VOLU ME] IN SERUM OR PLASMA <2ng/mL 02/12 Specimen Type: SERUM Comment: Reference Ranges(ng/m L): Non-Smoker Active Tobacco User < or = to 4 2-10 Reference Ranges(ng/m L): Non-Smoker Active Tobacco User < or = to 8 16-145 This test was developed and its analytical performance characteris tics have been determined by [email or web address] [place], [place]. It has not been cleared or approved by the U.S. Food and Drug Administrat ion. This assay has been validated pursuant to the CLIA regulations and is used for clinical purposes. Test Performed by [facility], [email or web address] [facility], [address] [place], [place] Jah Chapa M.D., Ph.D., Director of Laboratorie s , CLIA [id number] Ordering Provider: HENNY ALEGRIA Report Released Date/Time: Feb 01, 2025 12:11 PM Reporting Lab: [address] [address] Performing Lab: [facility] [address] [facility] CMV(IGG & IGM)(STL ) CYTOMEGALO VIRUS IGG AB [TITER] IN SERUM OR PLASMA POSITIVE 02/12 Specimen Type: SERUM No comment entered. Ordering Provider: HENNY ALEGRIA Report Released Date/Time: Feb 01, 2025 12:11 PM Reporting Lab: [place] [address] [facility] [address] Performing Lab: [place] [address] [facility] [address] [facility] CMV(IGG & IGM)(STL ) CYTOMEGALO VIRUS IGM AB [TITER] IN SERUM OR PLASMA NEGATIVE 02/12 Specimen Type: SERUM No comment entered. Ordering Provider: HENNY ALEGRIA Report Released Date/Time: Feb 01, 2025 12:11 PM Reporting Lab: [facility] [address] [facility] [address] Performing Lab: [place] [address] [facility] [address] [facility] HEPATITI S B SURFACE AB PNL [...] Feb 01, 2025 12:11 PM Reporting Lab: [place] [address] [facility] [address] Performing Lab: [place] [address] [facility] [address] [facility] HEP HB S Ag (AUSRIA) (STL) [...] Feb 01, 2025 12:11 PM Reporting Lab: [place] [address] [facility] [address] Performing Lab: [place] [address] [address] [facility] [address] [facility] ETHANOL ETHANOL [MASS/VOLU ME] IN SERUM OR PLASMA <10mg/dL 0 - 9 02/12 Specimen Type: PLASMA Comment: No hemolysis noted. Ordering Provider: HENNY ALEGRIA Report Released Date/Time: Feb 01, 2025 12:11 PM Reporting Lab: [place] [address] [facility] [address] Performing Lab: [place] [address] [facility] [address] [facility] HEP C Ab HCV Ab (STL) [...] Feb 01, 2025 12:11 PM Reporting Lab: [facility] [address] [facility] [address] Performing Lab: [facility] [address] [facility] [address] [facility] Vital Signs Combined list of inpatient and outpatient Vital Signs from Department of Defense and Veterans Affairs, ranging from 12 months to all on record, depending upon the facility. Vital Sign Value Date Comments Source SYSTOLIC BLOOD PRESSURE 108 03/27/2025 08:15:16 [facility] DIASTOLIC BLOOD PRESSURE 74 03/27/2025 08:15:16 [facility] PULSE OXIMETRY 99 03/27/2025 08:15:16 [facility] WEIGHT 179.6 03/27/2025 08:15:16 [facility] BMI 24 kg/m2 03/27/2025 08:15:16 [facility] PAIN 0 03/27/2025 08:15:16 [facility] TEMPERATURE 96.9 03/27/2025 08:15:16 [facility] PULSE 99 03/27/2025 08:15:16 [facility] RESPIRATION 18 03/27/2025 08:15:16 [facility] SYSTOLIC BLOOD PRESSURE 120 01/17/2025 09:01:29 [facility] DIASTOLIC BLOOD PRESSURE 85 01/17/2025 09:01:29 [facility] PULSE OXIMETRY 99 01/17/2025 09:01:29 [facility] WEIGHT 180.8 01/17/2025 09:01:29 [facility] BMI 25 kg/m2 01/17/2025 09:01:29 [facility] PAIN 2 01/17/2025 09:01:29 [facility] TEMPERATURE 98.2 01/17/2025 09:01:29 [facility] PULSE 96 01/17/2025 09:01:29 [facility] RESPIRATION 16 01/17/2025 09:01:29 [facility] SYSTOLIC BLOOD PRESSURE 92 01/09/2025 07:40:32 [facility] DIASTOLIC BLOOD PRESSURE 60 01/09/2025 07:40:32 [facility] PULSE OXIMETRY 100 01/09/2025 07:40:32 [facility] WEIGHT 177.8 01/09/2025 07:40:32 [facility] BMI 24 kg/m2 01/09/2025 07:40:32 [facility] TEMPERATURE 97.3 01/09/2025 07:40:32 [facility] PULSE 99 01/09/2025 07:40:32 [facility] RESPIRATION 18 01/09/2025 07:40:32 [facility] SYSTOLIC BLOOD PRESSURE 118 10/27/2024 12:16:00 [facility] DIASTOLIC BLOOD PRESSURE 82 10/27/2024 12:16:00 [facility] PAIN 3 10/27/2024 12:16:00 [facility] TEMPERATURE 98 10/27/2024 12:16:00 [facility] PULSE 98 10/27/2024 12:16:00 [facility] RESPIRATION 18 10/27/2024 12:16:00 [facility] SYSTOLIC BLOOD PRESSURE 117 09/18/2024 06:42:38 [facility] DIASTOLIC BLOOD PRESSURE 80 09/18/2024 06:42:38 [facility] PULSE OXIMETRY 100 09/18/2024 06:42:38 S Kenyatta [facility] WEIGHT 159 09/18/2024 06:42:38 [facility] BMI 22 kg/m2 09/18/2024 06:42:38 [facility] PAIN 4 09/18/2024 06:42:38 [facility] HEIGHT 72 09/18/2024 06:42:38 [facility] TEMPERATURE 97.9 09/18/2024 06:42:38 [facility] Encounters Combined list of: 1) Encounters from Department of Veterans Affairs facilities going backup to the last 18 months, not all VA inpatient encounters are included; 2) Encounters from the Department of Defense facilities going backup to 280 months. Location Location Details Encounter Type Encounter Number Reason For Visit Attending Provider ADM Date DC Date Status Disposition Source [facility] OUTPATIENT [id number] ELIJAH Benavides 04/07 Released w/o Limitations [facility] [address] [place] [address] Raman [facility]CE [facility] FAMRES Tm Blue) OUTPATIENT [id number] left foot pain fr inj YONNY REEVES 09/22 Released w/o Limitations [address] [place] [address] Raman [facility])([facility] FAMRES Tm Blue) [address] [place] [address] Raman [facility])(Sco tt [facility] Fam Res Tm Green) OUTPATIENT [id number] upper back pain BARBI GUADALUPE 02/26 Released w/o Limitations [address] [place] [address] Raman [facility])([facility] Fam Res Tm [place]) [address] [place] [address] Raman [facility])(Hio tt [facility] Fam Res Tm Green) OUTPATIENT [id number] abd pain... .[phone]..... GELA LEMONS 08/20 Released w/o Limitations [address] [place] [address] Raman [facility]) [address] [place] [address] Raman JETDiana ([facility]co [facility] Fam Res Tm Green) OUTPATIENT [id number] Abdomen pain-po ssibly associa te w/appen efrem [phone] VISHNU CHAN 02/25 Released w/o Limitations [address] [place] [address] Raman JETDiana ([facility]S cott [facility] Fam Res Tm Green) [address] [place] [address] Raman JETDiana ([facility])(Sco tt [facility] Fam Res Tm Green) OUTPATIENT [id number] growth on back of neck [id number] VJ TARIQ 03/26 Released w/o Limitations [address] [place] [address] Raman JETDiana ([facility]S cott [facility] Fam Res Tm Green) [address] [place] [address] Raman JETDiana [facility])(Sco tt [facility] Fam Res Tm Green) TELE CONSULT [id number] Notes Entered by: ADAM BROWER 28 Jul 2012 0820 ------- ------- ------- ------- -- Eye redness /discom fort-Carlos benz/2 [id number] /BARBI Lombardi 07/28 Referred for Appointment [address] [place] [address] Raman JETDiana [facility])(S cott [facility] Fam Res Tm Green) [address] [place] [address] Raman JETDiana [facility])(Sco tt [facility] Fam Res Tm Green) OUTPATIENT [id number] physica l - [id number] SAGAR BENÍTEZ 05/03 Released w/o Limitations [address] [place] [address] Raman [facility]S cott [facility] Fam Res Tm Green) [address] [place] [address] Raman JETDiana [facility])(Sco tt [facility] Fam Res Tm Green) OUTPATIENT [id number] physica l- ALEIDA ALY 06/10 Released w/o Limitations [address] [place] [address] Raman [facility]S cott [facility] Fam Res Tm Green) [address] [place] [address] Raman [facility])(Sco tt [facility] Fam Res Tm Green) OUTPATIENT [id number] high cholest errol, high blood pressur e FRANDY BUSTILLO 09/25 Released w/o Limitations [address] [place] [address] Raman [facility]S cott [facility] Fam Res Tm Green) [address] [place] [address] Group Raman [facility]AUDHARYB [facility])(Sco tt [facility] Fam Res Tm Green) OUTPATIENT [id number] f/u high bp CINDY SOTO 10/22 Released w/o Limitations [address] [place] [address] Raman CHAUDHARYB ([facility]S cott [facility] Fam Res Tm Green) [address] [place] [address] Raman CHAUDHARYB ([facility])(Sco tt [facility] Fam Res Tm Green) OUTPATIENT [id number] f/u high bp CARINE THOMPSON 11/04 Released w/o Limitations [address] [place] [address] Raman CHAUDHARYB ([facility]S cott [facility] Fam Res Tm Green) [address] [place] [address] Raman CHAUDHARYB ([facility])(Sco tt [facility] Fam Res Tm Red) TELE CONSULT [id number] Notes Entered by: LAURO HANEY 06 Nov 2014 1047 ------- ------- ------- ------- -- Diabeti c Educati onASHOK TEJADA 11/06 Referred for Appointment [address] [place] [address] Group Raman [facility]S cott [facility] Fam Res Tm Red) [address] [place] [address] Raman [facility]AUDHARYB [facility])(Sco tt [facility] Fam Res Tm Green) OUTPATIENT [id number] f/u hyperte nsion CARINE THOMPSON 12/11 Released w/o Limitations [address] [place] [address] Raman [facility]ARYB [facility]S cott [facility] Fam Res Tm Green) [address] [place] [address] Raman [facility]AUD[facility]ARYB [facility])(Sco tt [facility] FAMRES Tm Blue) TELE CONSULT [id number] Notes Entered by: LAURO HANEY 13 Apr 2015 1401 ------- ------- ------- ------- -- Lab results CARINE THOMPSON 04/[address] [place] [address] Group Raman [facility]S cott [facility] FAMRES Tm Blue) [address] [place] [address] Raman [facility])(Sco tt [facility] Fam Res Tm Green) OUTPATIENT [id number] f/u for blood pressur e/ CARINE THOMPSON 04/18 Released w/o Limitations [address] [place] [address] Raman [facility])(S cott OF Fam Res Tm Green) [address] [place] [address] Raman BYOCE [facility])(Sco tt [facility] Fam Res Tm Green) TELE CONSULT [id number] Notes Entered by: CASEY JACKSON 09 Jun 2015 1158 ------- ------- ------- ------- -- Sx- Chest Pains (ER refusal )/Doug bryan/61 [phone] TOMMY ANGELO 06/[address] [place] [address] Raman [facility]S cott OF Fam Res Tm Green) [address] [place] [address] Raman [facility]AUDHARYB [facility])(Sco tt [facility] Fam Res Tm Green) OUTPATIENT [id number] sternal pain daily x30 min CARINE THOMPSON 06/10 Released w/o Limitations [address] [place] [address] [facility] Fam Res Tm Green) [address] [place] [address] Raman CHAUDHARYB [facility])(Sco tt [facility] FAMRES Tm Blue) TELE CONSULT [id number] Notes Entered by: EMERALD REID 20 Jun 2015 0919 ------- ------- ------- ------- -- Network Results - CARDIOL OGY- 06/17/15 CARINE THOMPSON 06/[address] [place] [address] Raman JETDiana [facility]S cott [facility] FAMRES Tm Blue) [address] [place] [address] Raman CARLI [facility])(Sco tt [facility] FAMRES Tm Blue) TELE CONSULT [id number] Notes Entered by: LAURO HANEY 17 Jul 2015 1517 ------- ------- ------- ------- -- Lab Results CARINE THOMPSON 07/[address] [place] [address] Raman JETDiana [facility])(S cott [facility] FAMRES Tm Blue) [address] [place] [address] Raman JETB [facility])(Sco tt [facility] Fam Res Tm Green) OUTPATIENT [id number] f/u for bp [id number] CARINE THOMPSON 07/23 Released w/o Limitations [address] [place] [address] Raman [facility]S cott [facility] Fam Res Tm Green) [address] [place] [address] Raman [facility])(Sco tt [facility] Fam Res Tm Green) TELE CONSULT [id number] Notes Entered by: KELLY MORA 15 Sep 2015 0951 ------- ------- ------- ------- -- Network Results -GASTRO ENTEROL OGY 08/29/15 CARINE THOMPSON 09/[address] [place] [address] Raman [facility])(S cott [facility] Fam Res Tm Green) [address] [place] [address])(Sco tt [facility] Fam Res Tm Green) TELE CONSULT [id number] Notes Entered by: CATALINA SNYDER 22 Sep 2015 0727 ------- ------- ------- ------- -- Blood Pressur e Med Refill/ Dr. Carrington good/ [phone] TOMMY ANGELO 09/[address] [place] [address] [facility])(S cott [facility] Fam Res Tm Green) [address] [place] [address])(Sco tt [facility] Fam Res Tm Green) TELE CONSULT [id number] Notes Entered by: KELLY MORA 04 Nov 2015 0814 ------- ------- ------- ------- -- Network Results -GASTRO ENTEROL OGY 10/24/15 SD CARINE THOMPSON 11/[address] [place] [address] [facility])(S cott [facility] [place] F[facility] [employer]) [address] [place] [address] [facility])(Sco tt [facility] Tm Blue) TELE CONSULT [id number] Notes Entered by: LAURO HANEY 16 Jan 2016 1125 ------- ------- ------- ------- -- Lab Results CARINE THOMPSON 01/[address] [place] [address] [facility]S [facility] FAM[facility] Tm Blue) [facility] ([facility] [place]) OUTPATIENT [id number] f/u on high BP 222.259 9 CARINE THOMPSON 01/25 Released w/o Limitations [facility] Raman [facility]AUD[facility]ARYB [place]) [facility] Raman [place]AUD[facility]ARYB [place] ) OUTPATIENT [id number] F/U for BP meds [id number] ROM KUMAR 05/04 Released w/o Limitations [facility] Raman [facility]AUD[facility]ARYB [place]) [facility] Raman [facility]AUDHARYB [facility] ) TELE CONSULT [id number] Notes Entered by: MARLON POPE 07 Sep 2016 0729 ------- ------- ------- ------- -- Med refill/ Yulissa/ 222-259 9/AYAKA Díaz 09/07 Referred for Appointment [facility] Raman BOYCE [facility]) [facility] Raman [facility]AUD[facility]B [facility])([facility] ) TELE CONSULT [id number] Notes Entered by: Rebecca GOODWIN 09 Sep 2016 1116 ------- ------- ------- ------- -- Medicat ion Not in pharmac y/ Yulissa/ - [facility] AYAKA AMIN 09/09 Referred for Appointment [facility] Raman [facility]AUD[facility]B [facility])([facility] Raman CHAUDHARYB [place] ) OUTPATIENT [id number] f/u blood pressur e / HORACE BEDOYA V 05/03 Released w/o Limitations [facility] Raman [facility]) [facility] Raman JETB [facility])([facility] ) TELE CONSULT [id number] Notes Entered by: EFRAIN LOPEZ 23 Feb 2018 0927 ------- ------- ------- ------- -- Order labs - Celena - [id number] -2599/[id number] [phone] - tsg LUIS VILLEGAS 02/23 Referred for Appointment [address] [place] [address])([facility]) [address] [place] [address])([facility] ) OUTPATIENT [id number] annual check up HORACE BEDOYA V 03/14 Released w/o Limitations [address] [place] [address])([facility]) [address] [place] [address])([facility] ) TELE CONSULT [id number] 5 Notes Entered by: TANISHA MAYO 31 Jan 2019 1318 ------- ------- ------- ------- -- Referra l request /lubna e/[id number] MORRIS Pendleton 01/31 Other Not Elsewhere Classified [address] [place] [address])([facility]) [address] [place] [address])([facility] ) OUTPATIENT [id number] blood pressur e / ROM KUMAR 04/17 Released w/o Limitations [address] [place] [address])([facility]) [address] [place] [address])([facility] ) OUTPATIENT [id number] low back pain and labs [phone] FILIPPO FLANNERY 01/18 Released w/o Limitations [address] [place] [address])([facility]) [address] [place] [address])([facility] ) TELE CONSULT [id number] Notes Entered by: DEBBIE MEDEIROS A 18 Feb 2020 1056 ------- ------- ------- ------- -- SX- Freddyi ishaan Vasquez e-Mae a-Janelle doss BP x1-2mo/ Rush s/ - ajHECTOR Valentin 02/[address] [place] [address])([facility]) [address] [place] [address])([facility] ) TELE CONSULT [id number] Notes Entered by: RICA RODGERS RET 22 Apr 2020 1307 ------- ------- ------- ------- -- Appt Request for testing /luba /618. 222.259 9*AYAKA Coughlin 04/22 Referred for Appointment [address] [place] [address])([facility]) [address] [place] [address])([facility] ) OUTPATIENT [id number] Virtual - persist ent cough on taking a deep breath x 1 month - [id number] KRYSTLE APONTE 09/23 Released w/o Limitations [address] [place] [address])([facility]) [address] [place] [address])([facility] ) TELE CONSULT [id number] 4 Notes Entered by: Shazia APONTE 24 Sep 2020 0801 ------- ------- ------- ------- -- FILIPPO Galeano 09/[address] [place] [address])([facility]) [address] [place] [address])([facility] ) OUTPATIENT [id number] Virtual Appt - persist ent cough x months - [id number] FILIPPO FLANNERY 10/20 Released w/o Limitations [address] [place] [address])([facility]) [address] [place] [address])([facility] Internal [facility]) TELE CONSULT [id number] Notes Entered by: EUGENIA JEAN 08 Jan 2021 1459 ------- ------- ------- ------- -- Follow up imaging . ABHISHEK FOURNIER Nara 01/08 Other Not Elsewhere Classified [address] [place] [address])([facility]) [address] [place] [address])([facility]) TELE CONSULT [id number] Notes Entered by: EUGENIA JEAN 13 Jan 2021 1312 ------- ------- ------- ------- -- CT results FILIPPO FLANNREY 01/[address] [place] [address])([facility]) [address] [place] [address])([facility]) TELE CONSULT [id number] 5 Notes Entered by: JOHN YAN 15 Jan 2021 0939 ------- ------- ------- ------- -- SX Cancer DX/ PRESTON/ Fax Request / Rush acharya/ [phone] MORRIS WOODSON 01/15 Other Not Elsewhere Classified [address] [place] [address])([facility]) [address] [place] [address])([facility]) TELE CONSULT [id number] Notes Entered by: RICA RODGERS RET 19 Jan 2021 0938 ------- ------- ------- ------- -- Discuss CAT scan results /Luba rs/011. 438.204 9 FILIPPO FLANNERY 01/[address] [place] [address])([facility]) [address] [place] [address])([facility]) TELE CONSULT [id number] Notes Entered by: DEBBIE MEDEIROS 02 Feb 2021 1005 ------- ------- ------- ------- -- Med Renewal Request / Rush acharya/ - LUIS Avila 02/02 Other Not Elsewhere Classified [address] [place] [address])([facility]) [address] [place] [address] [facility] ) OUTPATIENT [id number] [id number] bump on index finger , left hand getting bigger FILIPPO FLANNERY 02/16 Released w/o Limitations [address] [place] [address] Group [facility])([facility]) [address] [place] [address] [facility])([facility] ) TELE CONSULT [id number] Notes Entered by: EUGENIA JEAN 24 Feb 2021 1419 ------- ------- ------- ------- -- Inciden mirtha finding on CT FILIPPO FLANNERY 02/[address] [place] [address] [facility])([facility]) [address] [place] [address])([facility] ) TELE CONSULT [id number] Notes Entered by: EUGENIA JEAN 26 Feb 2021 1417 ------- ------- ------- ------- -- Results of Ultraso und FILIPPO FLANNERY 02/[address] [place] [address] [facility])([facility]) [address] [place] [address] [facility])([facility] ) TELE CONSULT [id number] Notes Entered by: MATT PRUTIT 27 Feb 2021 1020 ------- ------- ------- ------- -- Medical Note Request /Luba watkins/618. 222.259 9 LUIS VILLEGAS 02/27 Other Not Elsewhere Classified [address] [place] [address])([facility]) [address] [place] [address])([facility] ) OUTPATIENT [id number] Virtual -reques royce winter for dermato logy-61 [phone] FILIPPO FLANNERY 03/17 Released w/o Limitations [address] [place] [address])([facility]) [address] [place] [address])([facility] ) TELE CONSULT [id number] 5 Notes Entered by: EFRAIN LOPEZ 31 Mar 2021 1410 ------- ------- ------- ------- -- F/U Destinee - xander l [facility] s - - tsg MORRIS WOODSON 03/31 Other Not Elsewhere Classified [address] [place] [address])([facility]) [address] [place] [address])([facility] ) TELE CONSULT [id number] Notes Entered by: FABIOLA PONCE 14 Apr 2021 1304 ------- ------- ------- ------- -- Network results Dermato logy 021 KSP FILIPPO FLANNERY 04/[address] [place] [address] [facility])([facility]) [address] [place] [address])([facility] ) TELE CONSULT [id number] Notes Entered by: SOFÍA ESCALERA 24 Apr 2021 0851 ------- ------- ------- ------- -- Network results Otolary ngology [ENT] 021 [facility] FILIPPO FLANNERY 04/[address] [place] [address])([facility]) [address] [place] [address])([facility] ) TELE CONSULT [id number] 7 Notes Entered by: TANISHA MAYO 13 May 2021 1322 ------- ------- ------- ------- -- referra maggy vieira /luba /[phone] MORRIS Pendleton 05/13 Other Not Elsewhere Classified [address] [place] [address] Group [facility])([facility] T[facility]) [address] [place] [address])([facility] ) TELE CONSULT [id number] 6 Notes Entered by: JOHN YAN 26 May 2021 0915 ------- ------- ------- ------- -- SX Chest nodules / /Referr al Request / Rush s/ [phone] AYAKA ACEVEDO 05/26 Other Not Elsewhere Classified [address] [place] [address])([facility]) [address] [place] [address])([facility] ) TELE CONSULT [id number] 3 Notes Entered by: LATRICE TAVERAS 27 May 2021 1045 ------- ------- ------- ------- -- Cardiol ogy LUIS Monet 05/27 Other Not Elsewhere Classified [address] [place] [address])([facility]) [address] [place] [address])([facility] ) TELE CONSULT [id number] 6 Notes Entered by: CHRISTIANO BARTON 13 Jul 2021 1445 ------- ------- ------- ------- -- Network results Cardiol ogy 021 FILIPPO GRAHAM 07/[address] [place] [address])([facility]) [address] [place] [address])([facility] ) TELE CONSULT [id number] 2 Notes Entered by: FABIOLA PONCE 21 Jul 2021 1553 ------- ------- ------- ------- -- Network results Gastroe nterolo gy 021 FILIPPO SEGOVIA 07/[address] [place] [address])([facility]) [address] [place] [address])([facility] ) TELE CONSULT [id number] Notes Entered by: CHRISTIANO BARTON 28 Jul 2021 1225 ------- ------- ------- ------- -- Network results Gastroe nterolo gy 021 FILIPPO GRAHAM 07/[address] [place] [address])([facility]) [address] [place] [address])([facility] ) TELE CONSULT [id number] Notes Entered by: FABIOLA PONCE 04 Aug 2021 1212 ------- ------- ------- ------- -- Network results Cardiol ogy 021 FILIPPO SEGOVIA 08/[address] [place] [address])([facility]) [address] [place] [address])([facility] ) OUTPATIENT [id number] both legs tingeli ng,back pain, f2f appt FILIPPO FLANNERY 09/15 Released w/o Limitations [address] [place] [address])([facility]) [address] [place] [address])([facility] ) TELE CONSULT [id number] 9 Notes Entered by: EUGENIA JEAN 18 Sep 2021 1106 ------- ------- ------- ------- -- Lab results FILIPPO FLANNERY 09/[address] [place] [address])([facility]) [address] [place] [address])([facility] ) TELE CONSULT [id number] 3 Notes Entered by: MATT PRUITT 24 Sep 2021 0812 ------- ------- ------- ------- -- Rx Rubin /LUBA /618. 071.563 9 MORRIS WOODSON 09/24 Medication Refill Forwarded [address] [place] [address])([facility]) [address] [place] [address])([facility] ) TELE CONSULT [id number] Notes Entered by: DARLING CARPENTERANMINDY A 28 Sep 2021 1029 ------- ------- ------- ------- -- Medicat ion Not in Pharmac y/ Rush / - MERARY Terrell 09/28 Other Not Elsewhere Classified [address] [place] [address])([facility]) [address] [place] [address])([facility] ) TELE CONSULT [id number] 8 Notes Entered by: JOHN YAN 21 Oct 2021 1032 ------- ------- ------- ------- -- Phone Call Request / Rush s/ SAMANTHA COTTON 10/21 Other Not Elsewhere Classified [address] [place] [address])([facility]) [address] [place] [address])([facility] ) TELE CONSULT [id number] 2 Notes Entered by: DARLING CARPENTERANIT A 12 Nov 2021 0842 ------- ------- ------- ------- -- Med Change Request - Chest CT Test F/U - Special ist F/U/ Rush s/ [id number] LUIS VILLEGAS 11/12 Other Not Elsewhere Classified [address] [place] [address])([facility]) [address] [place] [address])([facility] Internal Medicine Tm) OUTPATIENT [id number] Virtual [phone] discuss radiolo gy results FILIPPO FLANNERY 11/12 Released w/o Limitations [address] [place] [address])([facility] Tm) [address] [place] [address])([facility] tt Internal Medicine Tm) TELE CONSULT [id number] Notes Entered by: SARAI LY 28 Dec 2021 1112 ------- ------- ------- ------- -- Network results Cardiol ogy 022 BF FILIPPO FLANNERY 12/[address] [place] [address])([facility]) [address] [place] [address])(Fam hong Med Tm B Non-AD BCC) TELE CONSULT [id number] 1 Notes Entered by: TRAN DELGADO 09 Aug 2022 1129 ------- ------- ------- ------- -- Patient Dischar MARIANO Prasad 08/[address] [place] [address])(F amily Med Tm B Non-AD BCC) [address] [place] [address])([facility]io tt Internal Medicine Tm) OUTPATIENT [id number] new provide r to review medical conditi ons F2F CARMEN LEDBETTER 09/10 Released w/o Limitations [address] [place] [address])([facility] Intern[facility] Medicin [facility] Tm) [address] [place] [address])([facility] tt Internal Medicine Tm) TELE CONSULT [id number] Notes Entered by: GREG ATKINS 06 Oct 2022 1140 ------- ------- ------- ------- -- NOTIFIC ATIONS OF MEDICAL RECORD UPLOADCARMEN GROVER 10/[address] [place] [address])([facility] Tm) [address] [place] [address])([facility] ) TELE CONSULT [id number] 7 Notes Entered by: DEBBIE MEDEIROS 25 Oct 2022 1424 ------- ------- ------- ------- -- Cardiol ogy Referra l Renewal Req -Appt Alicia/ [phone] CHETAN HYDE 10/25 Other Not Elsewhere Classified [address] [place] [address])([facility] Tm) [address] [place] [address])([facility] ) OUTPATIENT [id number] dermato logy referra l/under skin bumps CARMEN LEDBETTER 10/27 Released w/o Limitations [address] [place] [address])([facility] Medicin [facility] Tm) [address] [place] [address])([facility] ) TELE CONSULT [id number] 7 Notes Entered by: GREG ATKINS 08 Nov 2022 1300 ------- ------- ------- ------- -- NOTIFIC ATION OF MEDICAL RECORD UPLOADCARMEN JEAN 11/[address] [place] [address])([facility] Intern[facility] Medicin [facility] Tm) [address] [place] [address])([facility] ) TELE CONSULT [id number] Notes Entered by: MARISOL PINEDA 24 Nov 2022 1527 ------- ------- ------- ------- -- Network results Cardiol ogy 022 LS CARMEN LEDBETTER 11/[address] [place] [address])([facility] Intern[facility] l Medicin e Tm) [address] [place] [address])([facility] ) TELE CONSULT [id number] 2 Notes Entered by: CHRISSY CONLEY 14 Dec 2022 1338 ------- ------- ------- ------- -- Retro Referra maggy Vieira /Alicia/ (CHANDANA Petit 12/14 Other Not Elsewhere Classified [address] [place] [address])([facility]m) [address] [place] [address])([facility] ) TELE CONSULT [id number] Notes Entered by: JOHN YAN 18 Jan 2023 1011 ------- ------- ------- ------- -- Referra maggy Conklin / Alicia/ MARY ELLEN CHETAN Samantha 01/18 Other Not Elsewhere Classified [address] [place] [address])([facility] Tm) [address] [place] [address])([facility] ) TELE CONSULT [id number] 4 Notes Entered by: ALEIDA DAVIS 11 Feb 2023 1312 ------- ------- ------- ------- -- Network results Dermato logy 023 CARMEN BROWNING 02/[address] [place] [address])(S cott Intern[facility] l Medicin e Tm) [facility] Outpatient Encounter [id number] LEXI PRADO 01/30 [facility] QNHP OL DIG ASSMT&MGMT 11-20 [id number] Diagnos is: ICD-10- CM I95.9 Hypoten ibeth, unspeci fied SCHOLFIELD ,NOEL A 01/31 [facility] Inpatient Encounter [id number] Admit Reason: ACUTE ON CHRONIC HEART FAILURE [facility] 02/09 [facility] 1ST HOSP IP/OBS MODERATE 55 [id number] [id number] RUTH,KOSTA HONG J 02/09 [facility] QNHP OL DIG ASSMT&MGMT 5-10 [id number] [id number] Diagnos is: ICD-10- CM I95.9 Jenae cristina, unspeci LAURA Barrera 02/09 [facility] Inpatient Encounter [id number] KOSTA MIRANDA HONG J 02/09 [facility] Inpatient Encounter [id number] ANGELO [facility] 02/09 [facility] Inpatient Encounter [id number] ANGELO [facility] 02/09 [facility] Inpatient Encounter [id number] ANGELO [facility] 02/09 [facility] IP/OBS CNSLTJ NEW/EST MOD 60 [id number] [id number] Diagnos is: ICD-10- CM 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 MICKIE Guy 02/09 [facility] Inpatient Encounter [id number] RADHA LEON 02/09 [facility] Inpatient Encounter [id number] [id number] 5 Ezio SAMAYOA 02/10 [facility] Inpatient Encounter [id number] [id number] 3 LEIF MCCURDY 02/10 [facility] Inpatient Encounter [id number] [id number] LEIF MCCURDY L 02/10 [facility] Inpatient Encounter [id number] [id number] LEIF MCCURDY 02/10 [facility] SBSQ HOSP IP/OBS MODERATE 35 [id number] [id number] Diagnos is: ICD-10- CM 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 PAN Jacobson 02/10 [facility] SBSQ HOSP IP/OBS MODERATE 35 [id number] [id number] KOSTA MIRANDA 02/10 [facility] Inpatient Encounter [id number] [id number] MIRELLA KOVACS 02/10 [facility] Inpatient Encounter [id number] [id number] 1 Ezio SAMAYOA 02/10 [facility] SBSQ HOSP IP/OBS MODERATE 35 [id number] [id number] Diagnos is: ICD-10- CM 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 brendaaury QUANMATTYPAN HORAN YASMINE 02/11 [facility] Inpatient Encounter [id number] [id number] 1 LEIF MCCURDY L 02/11 [facility] Inpatient Encounter [id number] [id number] LEIF MCCURDY L 02/11 [facility] Inpatient Encounter [id number] [id number] 3 LEIF MCCURDY L 02/11 [facility] SBSQ HOSP IP/OBS MODERATE 35 [id number] [id number] KOSTA MIRANDA 02/11 [facility] Inpatient Encounter [id number] [id number] 1 Rebecca VAZQUEZ 02/11 [facility] Inpatient Encounter [id number] [id number] LEIF MCCURDY L 02/11 [facility] Inpatient Encounter [id number] [id number] Elzbieta TORRES 02/11 [facility] Inpatient Encounter [id number] [id number] Elzbieta TORRES S 02/11 [facility] Inpatient Encounter [id number] [id number] 1 Elzbieta TORRES S 02/11 [facility] Inpatient Encounter [id number] [id number] RYANNADAMS 02/12 [facility] Inpatient Encounter [id number] [id number] 9 RYANNADAMS 02/12 [facility] HEAD COACH CONSUMER SERVICES ADVISOR INDIVIDU [id number] [id number] Diagnos is: ICD-10- CM 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 [place] [facility] SBSQ HOSP IP/OBS MODERATE 35 [id number] [id number] 5 Cory KIMBALL ICTORIA 02/12 [facility] Inpatient Encounter [id number] [id number] 4 LYDIA ARGUELLO Jennifer 02/12 [facility] Inpatient Encounter [id number] [id number] 5 LYDIA ARGUELLO 02/12 [facility] Inpatient Encounter [id number] [id number] 8 LYDIA ARGUELLO Jennifer 02/12 [facility] Inpatient Encounter [id number] [id number] LYDIA ARGUELLO 02/13 [facility] Inpatient Encounter [id number] [id number] LYDIA ARGUELLO 02/13 [facility] SBSQ HOSP IP/OBS MODERATE 35 [id number] [id number] Diagnos is: ICD-10- CM I50.43 Acute on chronic combine d 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 Rebecca RANGEL 02/13 [facility] SBSQ HOSP IP/OBS MODERATE 35 [id number] [id number] Cory KIMBALL ICTORIA 02/13 [facility] Inpatient Encounter [id number] [id number] ADAMS GARZON K 02/13 [facility] Inpatient Encounter [id number] [id number] 6 ADAMS GARZON K 02/13 [facility] [facility] Inpatient Encounter [id number] [id number] 7 ADAMS GARZON K 02/13 [facility] Inpatient Encounter 28880-6.65 [id number] 5 SWATHI HAWKCece ISS 02/13 [facility] Inpatient Encounter 51976-4.65 [id number] 0 SWATHI AHWKCece ISS 02/13 [facility] Inpatient Encounter [id number] [id number] 9 TERRI HAWK ISS 02/13 [facility] Inpatient Encounter [id number] [id number] 5 Shazia ÁLVAREZ L 02/14 [facility] Inpatient Encounter 92914-3.65 [id number] 5 TOOTIE SHAH 02/14 [facility] Inpatient Encounter [id number] [id number] 9 SELIN PEACOCK 02/14 [facility] Inpatient Encounter [id number] [id number] 7 SELIN PEACOCK 02/14 [facility] Inpatient Encounter [id number] [id number] 2 ELI CHAPA Shazia 02/14 [facility] IP/OBS MODERATE 35 [id number] [id number] 3 Diagnos is: ICD-10- CM I50.23 Acute on chronic systoli c (conges tive) heart failure KELBY ALEGRIA 02/14 [facility] IP/OBS MODERATE 35 85940-3.65 [id number] 2 Cory KIMBALL 02/14 [facility] Inpatient Encounter [id number] [id number] 9 ELI CHAPA RENAN Mccray 02/14 [facility] Inpatient Encounter 32351-7.65 [id number] 1 MARÍA FINCH 02/14 [facility] Inpatient Encounter [id number] [id number] 7 MARÍA FINCH R 02/15 [facility] Inpatient Encounter [id number] [id number] 5 MARÍA FINCH R 02/15 [facility] IP/OBS MODERATE 35 [id number] [id number] 3 Diagnos is: ICD-10- CM I50.21 Acute systoli c (conges tive) heart failure KELBY ALEGRIA 02/15 [facility] IP/OBS MODERATE 35 93723-3.65 [id number] 6 KIMBALL,V ICTBARBARA 02/15 [facility] TELEHEALTH FACILITY FEE 81018-7.65 [id number] 6 Diagnos is: ICD-10- CM Z55.9 Problem s related to educati on and literac y, unspeci PERICO Dill 02/15 [facility] Inpatient Encounter [id number] [id number] 3 ALESSIO VELASCO 02/15 [facility] Inpatient Encounter [id number] [id number] 7 ALESSIO VELASCO 02/15 [facility] Inpatient Encounter 66384-5.65 [id number] 0 REGINA TARIQ 02/15 [facility] Inpatient Encounter 59522-7.65 [id number] 0 OSCAR AQUINO 02/15 [facility] Inpatient Encounter [id number] [id number] 0 MARÍA FINCH 02/16 [facility] Inpatient Encounter 56879-5.65 [id number] 6 MARÍA FINCH 02/16 [facility] WRITTEN DISCHARGE INSTR PRVD 57921-4.65 [id number] 7 Diagnos is: ICD-10- CM 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 brendais TRI LEYVA 02/16 [facility] IP/OBS MODERATE 35 01661-5.65 [id number] 9 Diagnos is: ICD-10- CM I50.21 Acute systoli c (conges tive) heart failure KELBY ALEGRIA 02/16 [facility] Inpatient Encounter [id number] [id number] 6 SELIN PEACOCK Maggy 02/16 [facility] HOSP IP/OBS DSCHRG MGMT >30 36651-1.65 [id number] 9 Cory KIMBALL ICTORIA 02/16 [facility] Outpatient Encounter 82195-8.65 [id number] 1 STEPHANIELEV LUKE MARIBELL Elzbieta 02/16 [facility] Outpatient Encounter 64440-5.65 [id number] 4 02/19 [facility] PT EDUCATION NOC INDIVID 32905-6.65 [id number] 2 Diagnos is: ICD-10- CM I10 Essenti al (primar y) hyperte nsion TRI LEYVA 02/20 [facility] HC PRO PHONE CALL 11-20 MIN 05270-8.65 [id number] 1 TRI LEYVA 02/23 [facility] Outpatient Encounter [id number] [id number] 5 02/27 [facility] OFFICE O/P EST HI 40 MIN 89087-6.65 [id number] 0 Diagnos is: ICD-10- CM I50.22 Chronic systoli c (conges tive) heart failure ALEGRIAKELBY H 03/05 [facility] Outpatient Encounter 97416-0.65 [id number] LEXI PRADO 05/02 [facility] Outpatient Encounter 50153-9.65 [id number] 9 05/07 [facility] QNHP OL DIG ASSMT&MGMT 11- 73871-8.65 [id number] 1 Diagnos is: ICD-10- CM I95.9 Hypoten ibeth, unspeci NOEL Steven 05/07 [facility] Outpatient Encounter [id number] [id number] 4 HEIDI MCCARTHY 05/31 [facility] OFFICE O/P EST HI 40 MIN 19243-4.65 [id number] 2 Diagnos is: ICD-10- CM I10 Essenti al (primar y) hyperte gladysion MICKIE VERGARA 06/27 [facility] Outpatient Encounter [id number] [id number] 1 06/27 [facility] OFFICE O/P EST MOD 30 MIN [id number] [id number] 5 Diagnos is: ICD-10- CM I48.19 Other persist ent atrial fibrill ation MARY REYES 06/28 [facility] OFFICE O/P EST MOD 30 MIN 73656-8.65 [id number] 2 Diagnos is: ICD-10- CM Z01.818 Encount er for other preproc edural examina Amando Caceres 06/28 [facility] Outpatient Encounter [id number] [id number] 8 06/28 [facility] QNHP OL DIG ASSMT&MGMT 10-10 97313-7.65 [id number] 8 Diagnos is: ICD-10- CM 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 MICKIE Guy 08/10 [facility] Outpatient Encounter 85000-7.65 [id number] 3 ADAMA CHACON 08/20 [facility] Outpatient Encounter 71127-4.65 [id number] 3 08/23 [facility] HC PRO PHONE CALL 21-30 MIN 90660-9.65 [id number] 8 Diagnos is: ICD-10- CM I48.19 Other persist ent atrial fibrill ation HEIDI MCCARTHY 08/31 [facility] Outpatient Encounter [id number] [id number] 8 09/15 [facility] [place] [address]-9.65 [id number] 6 Diagnos is: ICD-10- CM 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 MICKIE VERGARA 09/[address] [facility] PL[address] CATHETER IN VEIN 20990-9.65 [id number] 8 MICKIE VERGARA 09/18 [facility] Outpatient Encounter 88044-4.65 [id number] 4 09/18 [facility] Outpatient Encounter 10808-1.65 [id number] 8 09/18 [facility] HEAD COACH CONSUMER SERVICES ADVISOR INDIVIDU 90912-4.65 [id number] 7 Diagnos is: ICD-10- CM 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 LUIS ARMANDO Solares 09/18 [facility] OFFICE O/P EST HI 40 MIN 65941-6.65 [id number] 5 Diagnos is: ICD-10- CM 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 osis LROE BIRMINGHAMGODFREY 09/18 [facility] Outpatient Encounter [id number] [id number] 6 KE TELLEZ R 10/27 [facility] EMERGENCY DEPT VISIT LOW MDM 01909-4.65 [id number] 6 Diagnos is: ICD-10- CM J06.9 Acute upper respira tory infecti on, unspeci fied KE TELLEZ R 10/27 [facility] Outpatient Encounter 54398-5.65 [id number] 5 KE TELLEZ R 10/27 [facility] Outpatient Encounter 15302-7.65 [id number] 5 12/26 [facility] Outpatient Encounter 47968-6.65 [id number] 8 Diagnos is: ICD-10- CM 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 MICKIE VERGARA 12/26 [facility] PH1 ASSMT&MGMT NQHP 5-10 87460-5.65 [id number] 6 Diagnos is: ICD-10- CM 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 TRI LEYVA 01/08 [facility] OFFICE O/P EST HI 40 MIN 27344-7.65 [id number] 1 Diagnos is: ICD-10- CM 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 MICKIE Guy 01/09 [facility] THER/PROPH /DIAG INJ IV PUSH 68952-6.65 [id number] 6 Diagnos is: ICD-10- CM 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 DUNIA Law 01/09 [facility] Outpatient Encounter 07867-7.65 [id number] 2 01/09 [facility] PH1 ASSMT&MGMT NQHP 5-10 34040-3.65 [id number] 0 Diagnos is: ICD-10- CM I50.20 Unspeci fied systoli c (conges tive) heart failure LOBITO DEAN 01/10 [facility] PSYTX W PT 60 MINUTES 15783-4.65 [id number] 8 Diagnos is: ICD-10- CM I50.20 Unspeci fied systoli c (conges tive) heart failure LOIBTO DEAN ERIK 01/15 [facility] SPACER WITHOUT MASK 43803-0.65 [id number] 1 Diagnos is: ICD-10- CM I50.9 Heart failure , unspeci fied RODDY DELGADILLOU SHIVJAL 01/17 [facility] INTRAORAL FULL IMAGE SERIES 90447-8.65 [id number] 6 Diagnos is: ICD-10- CM Z01.20 Encount er for dental exam and cleanin g w/o abnorma l finding s SA TAY BLE A 01/25 [facility] PSYCH DIAGNOSTIC EVALUATION 84983-2.65 [id number] 7 Diagnos is: ICD-10- CM Z76.82 Awaitin g organ transpl ant status EUGENIA BLOUNT Ela T 01/29 [facility] Outpatient Encounter 76093-8.65 [id number] 4 EUGENIA BLOUNT Ela T 01/29 [facility] Outpatient Encounter 26774-7.65 [id number] 6 02/12 [facility] Outpatient Encounter 02602-0.65 [id number] 5 Diagnos is: ICD-10- CM E27.8 Other specifi ed disorde rs of adrenal gland KELBY ALEGRIA 02/21 [facility] Outpatient Encounter 36994-0.65 [id number] 7 Diagnos is: ICD-10- CM 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 osGUERO Rosenberg Elzbieta 02/22 [facility] Outpatient Encounter 14139-0.65 [id number] 1 02/26 [facility] Outpatient Encounter 16278-7.65 [id number] 2 03/12 [facility] OFFICE O/P EST HI 40 MIN 19854-9.65 [id number] 3 Diagnos is: ICD-10- CM 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 MICKIE Guy 03/27 [facility] NQHP OL DIG ASSMT&MGMT 5-10 76868-7.65 [id number] 9 Diagnos is: ICD-10- CM 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 Ela WOLF L 04/02 [facility] Outpatient Encounter 28537-6.65 [id number] 9 Diagnos is: ICD-10- CM 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 KELBY ALEGRIA H 04/03 [facility] OFF/OP CONSLTJ NEW/EST HI 55 77462-0.62 [id number] Diagnos is: ICD-10- CM Z01.810 Encount er for preproc edural cardiov ascular examina SHANTELLE Mercado 04/05 [facility] [place] Outpatient Encounter 06484-1.65 [id number] 5 KAREN BLANCAS 04/08 [facility] Outpatient Encounter 08067-3.65 [id number] 6 04/08 [facility] Outpatient Encounter 19324-6.65 [id number] 6 KAREN BLANCAS Maggy 04/12 [facility] Outpatient Encounter 77558-3.65 [id number] 1 04/12 [facility] [id number] th MEDGRP-Hi louise Outside Documentat ion Only [id number] 05/17 Discharge Disposition: Home or Self Care 0055A-3 75th MEDGRP- [facility] Outpatient Encounter 15765-3.65 [id number] 6 05/21 [facility] Outpatient Encounter 89780-7.65 [id number] 0 KAREN BLANCAS Rebecca Winter 06/07 [facility] Outpatient Encounter 29648-5.65 [id number] 7 06/12 [facility] Outpatient Encounter 14251-9.65 [id number] 5 06/17 [facility] NQHP OL DIG ASSMT&MGMT 5-10 87436-9.65 [id number] 3 Diagnos is: ICD-10- CM Z02.9 Encount er for adminis trative examina tions, unspeci MATIAS Espinosa 06/17 [facility] Outpatient Encounter 42927-1.65 [id number] 6 06/18 [facility] Outpatient Encounter 84160-1.65 [id number] 0 ADAMA CHACON 06/29 [facility] Outpatient Encounter 39374-7.65 [id number] LEXI JARUQIN 07/01 [facility] Procedures Combined list of: 1) Procedures from Department of [facility] Affairs facilities going back up to thelast 18 months, not all VA non-surgical procedures are included; 2) All procedures from the Department of Defense facilities. Procedure Procedure Type Code Date Perfomer Comments Sourc e No data available for this section Ambulato ry Pharmacy VIS FUNCT SCREEN,AUTOMAT/SEMI- AUTOMAT BILAT QUANT DETERM VISUAL ACUITY,OCULAR ALIGN,COLOR VISION,PSEUDOISOCHRO MAT PLATES,& FIELD VIS (MAY INC ALL/SOME SCRN DETERM FOR CONTRAST SENSITIV,VIS UND GLARE) [facility] SERIAL TONOMETRY (SEP PROC) WITH MULT JANEL OF INTRAOCULAR PRESSURE OVER EXTENDED TIME PERIOD W/ INTERP & REPORT, SAME DAY (EG, DIURNAL CURVE OR MEDICAL TX OF ACUTE ELEVATION OF INTRAOCULAR PRESSURE) [facility] IMMUNIZATION ADMINISTRATION (INCLUDES PERCUTANEOUS, INTRADERMAL, SUBCUTANEOUS, OR INTRAMUSCULAR INJECTIONS); 1 VACCINE (SINGLE OR COMBINATION VACCINE/TOXOID) [facility] ELECTROCARDIOGRAM, ROUTINE ECG WITH AT LEAST 12 LEADS; TRACING ONLY, WITHOUT INTERPRETATION AND REPORT [facility] COMPREHENSIVE AUDIOMETRY THRESHOLD EVALUATION AND SPEECH RECOGNITION (46463 AND 74113 COMBINED) [facility] SERIAL TONOMETRY (SEP PROC) WITH MULT JANEL OF INTRAOCULAR PRESSURE OVER EXTENDED TIME PERIOD W/ INTERP & REPORT, SAME DAY (EG, DIURNAL CURVE OR MEDICAL TX OF ACUTE ELEVATION OF INTRAOCULAR PRESSURE) [facility] DETERMINATION OF REFRACTIVE STATE [facility] OPHTHALMOLOGICAL SERVICES: MEDICAL EXAMINATION AND EVALUATION, WITH INITIATION OR CONTINUATION OF DIAGNOSTIC AND TREATMENT PROGRAM; INTERMEDIATE, ESTABLISHED PATIENT DoD OPHTHALMOLOGICAL SERVICES: MEDICAL EXAMINATION AND EVALUATION, WITH INITIATION OR CONTINUATION OF DIAGNOSTIC AND TREATMENT PROGRAM; INTERMEDIATE, ESTABLISHED PATIENT [facility] OPHTHALMOLOGICAL SERVICES: MEDICAL EXAMINATION AND EVALUATION, WITH INITIATION OR CONTINUATION OF DIAGNOSTIC AND TREATMENT PROGRAM; INTERMEDIATE, ESTABLISHED PATIENT [facility] OPHTHALMOLOGICAL SERVICES: MEDICAL EXAMINATION AND EVALUATION, WITH INITIATION OR CONTINUATION OF DIAGNOSTIC AND TREATMENT PROGRAM; COMPREHENSIVE, ESTABLISHED PATIENT, 1 OR MORE VISITS 004 [facility] DETERMINATION OF REFRACTIVE STATE 004 [facility] UNLISTED OPHTHALMOLOGICAL SERVICE OR PROCEDURE 004 [facility] SCREENING TEST, PURE TONE, AIR ONLY 003 [facility] OPHTHALMOSCOPY, EXTENDED, WITH RETINAL DRAWING (EG, FOR RETINAL DETACHMENT, MELANOMA), WITH INTERPRETATION AND REPORT; INITIAL 003 [facility] VISUAL FIELD EXAM,UNILAT/BI,INTER P&REP;EXT EXM(EG,GOLDMANN VIS FLD,AT LEAST 3 ISOP PLOT&STAT DET W/IN SHAHID 30DEG/QUANT,AUTO THRSH KEISHA,OCT G-1,32/42,HUMP VIS FLD ANAL FULL THRSH 30-2,24-2, OR 3060-2) 002 [facility] EDUCATIONAL SUPPLIES, SUCH BOOKS, TAPES, AND PAMPHLETS, FOR THE PATIENT'S EDUCATION AT COST TO PHYSICIAN OR OTHER QUALIFIED HEALTH MANAGER LSW 002 DoD TELE ASSESS & MGT SRV [...] SERVICES; NOT OTHERWISE SPECIFIED (NOS) 020 DoD WAIVER SERVICES; NOT OTHERWISE SPECIFIED (NOS) [...] 24 HR/SOON APT;5-10 MIN MED DIS 012 [facility] UNILATERAL THYROID LOBECTOMY 999 [facility] Non-Physician Phone Call To Patient/Provider Brief (5-10min) Non-Physician Phone Call To Patient/Provider Brief (5-10min) [phone] LUIS VIVAR [facility] Non-Physician Phone Call To Patient/Provider Brief (5-10min) Non-Physician Phone Call To Patient/Provider Brief (5-10min) [phone] AYAKA AMIN Non-Physician Phone Call To Patient/Provider Brief (5-10min) Non-Physician Phone Call To Patient/Provider Brief (5-10min) [phone] AYAKA AMIN Non-Physician Phone Call To Patient/Provider Brief (5-10min) Non-Physician Phone Call To Patient/Provider Brief (5-10min) [phone] TOMMY ANGELO [facility] Immunization Administration One Vaccine Immunization Administration One Vaccine 46281 013 SAGAR BENÍTEZ [facility] Tdap Vaccine Tdap Vaccine 00338 013 SAGAR BENÍTEZ [facility] Non-Physician Phone Call To Patient/Provider Brief (5-10min) Non-Physician Phone Call To Patient/Provider Brief (5-10min) [id number] 012 BARBI KOVACS [facility] Vaccines Viral Yellow Fever Vaccines Viral Yellow Fever 53452 005 ELIJAH STARR DoD Immunization Administration One Vaccine Immunization Administration One Vaccine 30903 005 ELIJAH STARR DoD Waiver services; not otherwise specified (NOS) KRYSTLE APONTE [facility] Non-Physician Phone Call To Patient/Provider Brief (5-10min) Non-Physician Phone Call To Patient/Provider Brief (5-10min) 77749 AYAKA ACEVEDO [facility] Non-Physician Phone Call To Pt/Provider Intermed (11-20 min) Non-Physician Phone Call To Pt/Provider Intermed (11-20 min) 57943 CHETAN HYDE [facility] Social History Combined list of available smoking, tobacco, and other social history from Department of [facility] and [facility] facilities. Social History Type Response Date Comment Sour e Tobacco smoking status NHIS VA-TOBACCO NEVER USED CIGARETTES 01/17/2025 [facility] History of tobacco use UT-TOBACCO NEVER USED OTHER TYPE 01/17/2025 [facility] History of tobacco use ORYX ADMIT TOBACC O SCREEN NO 02/10/2024 [facility] History of tobacco use UT-TOBACCO NEVER USED 06/08/2022 [facility] Sexual Orientation Ambula tory Pharmacy Gender identity Ambulator y Pharmacy Sex Representation Male (finding) Un known Organization This section is an empty social history section. [facility] Assessment and Plan Combined list of future care activities from Department of [facility] and [facility] facilities (e.g., assessment and plan notes, appointments, orders, and referrals). Additional future care activities may be listed in the Plan of Care section. Result Assessment and Plan Date Source Assessment and Plan No data available for this section 07/08/2025 Ambulatory Pharmacy Plan of Care List of future care activities from Department [facility] facilities. Additional future care activities may be listed in the Assessment and Plan section. Date/Time Care Activity Care Activity Detail Facili ty 07/24/2025 AMBULATORY - MEDICINE AMBULATORY - MEDICI NE [facility] Advance Directives List of completed, amended, or rescinded Advance Directives on record at [facility] facilities. An actual copy of the Directive is not included. Date Advance Directive Provider Source 02/16/2024 ADVANCE DIRECTIVE GINA BRIGHT [facility] Functional Status Combined list of recent functional and cognitive assessments recorded at Department of Defense and Veterans Affairs (VA).VA Functional [place]ado Measurement (FIM) Scale: 1 = Total Assistance (Subject = 0% +), 2 = Maximal Assistance (Subject = 25% +), 3 = Moderate Assistance (Subject = 50% +), 4 = Minimal Assistance (Subject = 75% +), 5 = Supervision, 6 = Modified Dorado (Device), 7 = Complete Dorado (Timely, Safely). Assessment Date/Time Source Assessment Type Assessment Skill Assessment Score Assessment Details No data available for this section
--- OUTSIDE RECORDS SUMMARY | 2025-07-08 10:53 | XMS_ITS ---
Author Organization [facility] Address [address] [place] [address] Care Team Providers Care Dress Marker Name Role Phone Anuel Vargas DO Primary Care Provider [phone] Justin Flowers MD Unavailable Erlin Chong MD Unavailable Alexandra Powell RN Unavailable [phone] Transplant Episode Heart Recipient [facility] ([place], [place]) - [facility] Organ Received: Heart Transplanted on 05/21/2025 Marked as Active Follow-up on 05/21/2025 Heart CoordinatorAlexandra Powell, CECE Fax: N/A Email: N/A [place] Organ Diagnosis 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 History Noted Survival Infection Treatment Organism Resolved 06/26/2025 36 days Acute upper resp iratory infection, unspecified 06/17/2025 27 days Acute hepatitis C virus [...] Role Phone Fax Email Alexandra Powell RN Director Immunology [phone] N/A N/A Addy Tapia MD Surgeon [phone] N/A Events Post-Transplant Pre-Transplant Admitted: 04/08/2025 Referred: 04/08/2025 Transplanted: 05/21/2025 Evaluation began: Discharged: 06/11/2025 Committee: 04/12/2025 Center waitlisted: 5 Appointments (06/07/2025 - 08/08/2025) When With Visit Type Description 06/17/2025 Transplant Return 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 07/01/2025 Transplant Return Hypertension, e ssential (Primary Dx); Gastroesophageal reflux disease with esophagitis without hemorrhage; Physical deconditioning; AL amyloidosis (HCC); High risk medication use; Heart transplanted; 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; Dyslipidemia; Light chain (AL) amyloidosis (HCC)
--- OUTSIDE RECORDS SUMMARY | 2025-07-08 10:53 | XMS_ITS | Clinical Summary ---
Author Organization Unknown Care Team Providers Care Piece Meat Trimmer Name Role Phone URSULA KING, ABRIL Unavailable Unavailable MICHELINE ZHAO, MACY Unavailable Unavailabl e Payers Payer Name Policy Type Policy Number Effective Date Expira tion Date [facility] PRO[facility] - PDGM Problems Condition Name [...] KIDNEY FAILURE, UNSPECIFIED Active 11-21 00:00: 00 PENITENTIARY (CURRENT) USE OF INSULIN Active 11-21 00:00: 00 UNSPECIFIED OPEN WOUND OF OTHER PART OF HEAD, SUBS ENCNTR Active 11-21 00:00: 00 GASTRO-ESOPH AGEAL REFLUX DISEASE WITHOUT ESOPHAGITIS Active 11-21 00:00: 00 GOUT, UNSPECIFIED Active 11-21 00:00: 00 HYPERLIPIDEM IA, UNSPECIFIED Active 11-21 00:00: 00 Problems related to health literacy Active 11-21 00:00: 00 INTERLOCKING AND SIGNAL MECHANIC (CURRENT) USE OF ORAL HYPOGLYCEMIC DRUGS Active 11-21 00:00: 00 INTERLOCKING AND SIGNAL MECHANIC (CURRENT) USE OF SYSTEMIC STEROIDS Active 11-21 [...] 1 mg tablet 06-12 00:00: 00 Yes [id number] 1 tablet 2 TIMES DAILY 1 tablet 2 TIMES DAILY (route: oral) Med Classific ation: Cardiovas cular Therapy Agents dapsone 100 mg tablet 06-12 00:00: 00 Yes [id number] 1 tablet DAILY 1 tablet DAILY (route: oral) Med Classific ation: Anti-Infe ctive Agents docusate sodium 100 mg capsule 06-12 00:00: 00 Yes [id number] 1 capsule 2 TIMES DAILY 1 capsule 2 TIMES DAILY (route: oral) Med Classific ation: Gastroint estinal Therapy Agents fluconazole 100 mg tablet 06-12 00:00: 00 Yes [id number] 1 tablet DAILY 1 tablet DAILY (route: oral) Med Classific ation: Anti-Infe ctive Agents Glucagon Emergency Kit 1 mg solution for injection 06-12 00:00: 00 Yes [id number] 1 mg NEEDED 1 mg NEEDED (route: injection) Med Classific ation: Endocrine Jardiance 25 mg tablet 06-12 00:00: 00 Yes [id number] 1 tablet DAILY 1 tablet DAILY (route: oral) Med Classific ation: Endocrine Lantus Solostar U-100 Insulin 100 unit/mL (3 mL) subcutaneou s pen 06-12 00:00: 00 Yes [id number] 31 unit DAILY 31 unit DAILY (route: subcutaneo us) Med Classific ation: Endocrine Lokelma 10 gram oral powder packet 06-12 00:00: 00 Yes [id number] 1 powder in packet NOON 1 powder in packet NOON (route: oral) Med Classific ation: Electroly te Balance-N utritiona l Products methocarbam ol 500 mg tablet 06-12 00:00: 00 Yes [id number] 1 tablet 3 TIMES DAILY 1 tablet 3 TIMES DAILY (route: oral) Med Classific ation: Locomotor System mycophenola te mofetil 500 mg tablet 06-12 00:00: 00 Yes [id number] 2 tablet EVERY 12 HOURS 2 tablet EVERY 12 HOURS (route: oral) Med Classific ation: Immunosup pressive Agents oxycodone 5 mg tablet 06-12 00:00: 00 Yes [id number] 0.5 tablet EVERY 6 HOURS 0.5 tablet EVERY 6 HOURS (route: oral) Med Classific ation: Analgesic , Anti-infl ammatory or Antipyret ic pantoprazol e 20 mg tablet,ray yed release 06-12 00:00: 00 Yes [id number] 1 tablet DAILY 1 tablet DAILY (route: oral) Med Classific ation: Gastroint estinal Therapy Agents prednisone 5 mg tablet 06-12 00:00: 00 Yes [id number] 4 tablet DAILY 4 tablet DAILY (route: oral) Med Classific ation: Endocrine rosuvastati n 10 mg tablet 06-12 00:00: 00 Yes [id number] 1 tablet BEDTIME 1 tablet BEDTIME (route: oral) Med Classific ation: Cardiovas cular Therapy Agents Senna Laxative 8.6 mg tablet 06-12 00:00: 00 Yes [id number] 1 tablet 2 TIMES DAILY 1 tablet 2 TIMES DAILY (route: oral) Med Classific ation: Gastroint estinal Therapy Agents tacrolimus 1 mg capsule, immediate-r elease 06-12 00:00: 00 Yes [id number] 2 capsule DAILY 2 capsule DAILY (route: oral) Med Classific ation: Immunosup pressive Agents tacrolimus 1 mg capsule, immediate-r elease 06-12 00:00: 00 Yes [id number] 1 capsule BEDTIME 1 capsule BEDTIME (route: oral) Med Classific ation: Immunosup pressive Agents Tylenol 8 Hour 650 mg tablet,exte nded release 06-12 00:00: 00 Yes [id number] 1 tablet EVERY 4 HOURS 1 tablet EVERY 4 HOURS (route: oral) Med Classific ation: Analgesic , Anti-infl ammatory or Antipyret ic valganciclo vir 450 mg tablet 06-12 00:00: 00 Yes [id number] 1 tablet DAILY 1 tablet DAILY (route: oral) Med Classific ation: Anti-Infe ctive Agents Mavyret 100 mg-40 mg tablet 06-13 00:00: 00 Yes [id number] 3 tablet DAILY 3 tablet DAILY (route: oral) Med Classific ation: Anti-Infe ctive Agents Triple Antibiotic 3.5 mg-400 unit-5,000 unit/gram topical ointment 06-13 00:00: 00 Yes [id number] Per instruc tions DIRECTED Per instructio ns [...] FOR HOME HEALTH.] Future Scheduled Test [facility] MAY ACCEPT ORDERS FROM THE FOLLOWING PHYSICIANS: DR LONA AMOS, DR PORFIRIO RUSSELL, DR CARMEN LEDBETTER, DR SHERRON VILLANUEVA, DR CLIFF FREEMAN, DR DAWSON GAVIRIA AUTOMATIC NAILING MACHINE FEEDER/TREATING PROVIDERS [code = HOME HEALTH AGENCY MAY ACCEPT ORDERS FROM THE FOLLOWING PHYSICIANS: DR LONA AMOS, DR PORFIRIO RUSSELL, DR CARMEN LEDBETTER, DR SHERRON VILLANUEVA, DR CLIFF FREEMAN, DR DAWSON GAVIRIA AUTOMATIC NAILING MACHINE FEEDER/TREATING PROVIDERS] Future Scheduled Test SKILLED NU RSE [...] RESULTS AND FAX TO DR LONA AMOS [phone]. [code = SKILLED NURSE TO OBTAIN BLOOD SPECIMEN VIA VENIPUNCTURE FOR CBC WITH DIFF, CMP, AND TACROLIMUS LEVEL TWICE WEEKLY. HCV RNA WEEKLY ON WEEK OF 06/17/25, 07/01/25, 07/15/25, 08/05/25, 09/02/25, 10/28/25, 03/17/26,AND 09/29/26. DIAGNOSIS AFTERCARE FOLLOWING HEART TRANSPLANT. OBTAIN LAB RESULTS AND FAX TO DR LONA AMOS [phone].] Future Scheduled Test VIRTUAL SIT FREQUENCY: 6 [...] MAINTAIN SITUATIONAL AWARENESS AND WILL NOTIFY CLINICAL PYTHON DEVELOPER AND PHYSICIAN/PROVIDER WITH ANY CHANGE IN CONDITION. [code = SKILLED NURSE TO PERFORM ENVIRONMENTAL SAFETY RISK ASSESSMENT AND FALL RISK ASSESSMENT AND PROVIDE INSTRUCTION TO IMPLEMENT ENVIRONMENTAL SAFETY AND FALL PREVENTION STRATEGIES THROUGHOUT THE CERTIFICATION PERIOD. SKILLED NURSE WILL MAINTAIN SITUATIONAL AWARENESS AND WILL NOTIFY CLINICAL PYTHON DEVELOPER AND PHYSICIAN/PROVIDER WITH ANY CHANGE IN CONDITION.] [...] 2025-08-11 00:00:00 Outpatient NEW ADMISSION MACY TOBIAS [facility] [id number] 50.00
--- OUTSIDE RECORDS SUMMARY | 2025-07-08 10:53 | XMS_ITS | Encounter Summary ---
Author Name [facility] [place] [facility] [place] Address [address] [place] [address] Care Team Providers Care Checker Product Design Name Role Phone ADAMA CHACON Primary Care [...] Policy Kennedy [facility] 2024 [facility] Nov 21, 2024 [facility] [id number] Elzbieta ZUNIGA PATIENT Selected Encounter This section includes the information on record at [place] for the Encounter. Date/Time Encounter Type Encounter Description Reason Provider Source Jun 29, 2025 07:50 AM Outpatient Encounter GENERAL INTERNAL MEDICINE ADAMA CHACON Encounter Template Text not used by [place] Plan of Treatment: Future Appointments (+ 6 [...] 20 appointments. The data comes from all [facility] [address] Appointment Date/Time Appointment Type Appointme nt Facility Name Jul 24, 2025 09:00 AM AMBULATORY - MEDICINE [facility] Aug 14, 2025 02:40 PM AMBULATORY - NONE [facility] Active, Pending, and Scheduled Orders This section includes a listing of several types of active, pending, and scheduled orders, including clinic medications orders, diagnostic test orders, procedure orders and consult orders; where the start date of the order is 45 days before the date of the Encounter or 45 days after the date of theEncounter. The data comes from all [facility] [address]. Test Date/Time Test Type Test Details Facility Name Jun 06, 2025 09:09 PM Consult Order [facility] Cons Commercial Cleaner's Choice [facility] Social History: Smoking Status (Most current) and Tobacco Use (All prior to encounter date) This section includes the most current, and the historical, smoking and tobacco- related health factors from the [place] facility where the Encounter took place. Current Smoking Status This section includes the most current smoking, or tobacco-related health factor, from the [place] facility where the Encounter took place. Date/Time Current Smoking Status Comment Khurram ity Jan 17, 2025 09:00 AM [place]-TOBACCO NEVER U SED CIGARETTES [facility] Tobacco Use History This section includes a history of the smoking, or tobacco-related health factors, that were collected on or before the date of the Encounter. The data comes from the [place] facility where the Encounter took place. Date/Time Smoking Status/Tobacco Use Comment F acility Jan 17, 2025 09:00 AM [place]-TOBACCO NEVER U SED OTHER TYPE [facility] Feb 10, 2024 06:16 PM ORYX ADMIT TOBACCO SCREEN NO [facility] Advance Directives: All historical and current Section Date Range: From patient's date of to the date document was created. This section includes ALL of a patient's completed or amended [place] Advance and Rescinded Directives. The entries below indicate that a directive exists for the patient, but an actual copy is not included with this document. The data comes from all [place] facilities. Date Advance Directives Provider Source Feb 16, 2024 ADVANCE DIRECTIVE GINA BRIGHT [facility] Encounter Notes: All associated encounter notes This section contains the clinical notes associated to the Encounter. Date/Time Encounter Note(s) Provider Source Jun 12, 2025 07:50 AM NONVA NOTE: LOCAL TITLE: [facility] SELF PRESENTING CARE COORD PLAN STANDARD TITLE: NONVA NOTE DATE OF NOTE: JUN 12, 2025@07:50 ENTRY DATE: JUN 29, 2025@07:51:34 AUTHOR: CLARISA MAIN EXP COSIGNER: URGENCY: STATUS: COMPLETED Emergency Notification Intake Date Presenting to the Facility: May Method of Contact: Notified from [employer] worklist Notification ID: [id number] [facility] Referral #: [id number] [facility] Hospital Name: Hospital: [facility] Address: [address] [place] [address] City: [place] State: [place] Zip Code: [address] [facility] Facility Point of Contact: Name: Cici Barone Chief complaint: [id number] - T07.[id number] - H05.231 - Z94.1, FALL Primary Diagnosis: Disposition Discharged Date of discharge: May Discharge to home Status: Closed - Approved for 1703 Records r/t this episode of care can be found in [facility]. /luan/ CLARISA MAIN [facility] AGRIBUSINESS PROFESSOR Signed: 06/29/2025 07:53 Receipt Acknowledged By: 07/01/2025 09:06 /luan/ FRANCINE ALEJANDRO, RN REGISTERED NURSE CLARISA MAIN [facility]
--- OUTSIDE RECORDS SUMMARY | 2025-07-08 10:53 | XMS_ITS | Encounter Summary ---
Author Organization [facility] Address [address] [place] [address] Phone Care Team Providers Care Sweep Press Operator Name Role Phone Anuel Vargas Primary Care Provider [phone] Justin Flowers MD Unavailable Erlin Chong MD Unavailable Katerina Romero RN Unavailable Unavailable Alexandra Powell RN Unavailable [phone] Encounter Details Date Type Department Care Team (Late st Contact Info) Description 02/13/2024 Telephone [facility] Bone Marrow Transplant [address] [facility] 7th Floor, [place] [address] Alma Carranza V. Social History Tobacco Use Types Packs/Day Years Used Date Smoking Tobacco: Never Cigarettes Smokeless Tobacco: Never [facility] Utilities Answer Date Recorded In the past 12 months has [employer], gas, oil, or water [employer] threatened to shut off services in your home? No 11/28/2023 Social Connection and Isolation Panel Answer Date Recorded In a typical week, how many times do you talk on the phone with family, friends, or neighbors? More than three times a week 11/28/2023 How often do you get togethe r with friends or relatives? Once a week 11/28/2023 How often do you attend [facility] or christian services? Never 11/28/2023 Do you belong to [...] place to sleep or slept in a nursing home (including now)? No 11/28/2023 Personal Safety Answer Date Recorded Have you ever been in or are you currently in a harmful physical or emotional relationship or is someone making you feel afraid or unsafe? Denies 11/27/2023 Sex and Gender Information Value Date Recorded Sex Assigned at Not on file Legal Sex Male 12:25 PM TEST RIDER Gender Identity Male 05/28/2021 8:44 PM CDT Sexual Orientation Straight 10/19/2022 9: 47 AM TEST RIDER documented as of this encounter Plan of Treatment Upcoming Encounters Date Type Department Care Team (Latest Contact Info) Description 07/15/2025 9:00 AM CDT Hospital Encounter [address] [place] [address] Yaakov Lawrence MD PhD [address] [place] [address] 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 07/15/2025 9:00 AM CDT - 07/15/2025 9:30 AM CDT Surgery [address] [place] [address] Yaakov Lawrence MD PhD [address] [place] [address] ENDOMYOCARDIAL BIOPSY [id number] documented as of this encounter Visit Diagnoses [...] documented as of this encounter Care Teams Sweep Press Operator Relationship Specialty Start Date End Date Anuel Vargas DO PCP - General Internal Medicine 10/19/22 Justin Flowers MD [address] DIV IM BONE MARROW TRANSPLANT, [address] [place] [address] Consulting Physician Medical Oncology 10/06/23 Erlin Chong MD [address] DIV IM BONE MARROW TRANSPLANT, [address] [place] [address] Referring Physician Cardiology 10/06/23 Katerina Romero, battery service technicianSeat Nailer Cardiothoracic Surgery 04/03/25 05/20/25 Alexandra Powell, CECE [address] [facility] [address] [place], [place] [id number] Seat Nailer Transplant 05/21/25 documented as of this encounter
--- OUTSIDE RECORDS SUMMARY | 2025-07-08 10:53 | XMS_ITS | Clinical Summary ---
Author Organization [facility] Care Team Providers Care Continuous Linter Drier Operator Name Role Phone Unavailable Primary [...]
[2025-07-08 10:55] LABS: Anisocytosis 1+; Hypochromasia 1+; Ovalocytes 1+; Schistocytes None Seen; Tear Drop Cells 1+
--- OUTSIDE RECORDS SUMMARY | 2025-07-08 10:55 | XMS_ITS | Encounter Summary ---
Author Organization [facility] Address [address] [place] [address] Phone Care Team Providers Care Ironworker Wire Fence Erector Name Role Phone Anuel Vargas Primary Care Provider [phone] Justin Flowers MD Unavailable Erlin Chong MD Unavailable Alexandra Powell RN Unavailable Encounter Details Date Type Department Care Team (Late st Contact Info) Description 06/07/2025 Documentation [facility] Endocrinology Metabolism and Lipid [address] [facility] Medicine 13th [place] [address] [place] [address] Carolyn Ponce MD [address] [place], [place] [id number] Social History Tobacco Use Types Packs/Day Years Used Date Smoking Tobacco: Never Passive Smoke Exposure: Never Smokeless Tobacco: Never [facility] Utilities Answer Date Recorded In the past 12 months has [employer], gas, oil, or water company threatened to [...] often do you attend chur ch or gnosticist services? Never 04/10/2025 Do you belong to any clubs o r organizations such as confucianism groups, unions, fraternal or athletic groups, or [...] a nursing home (including now)? No 11/28/2023 PHQ-9 Answer [...] time in the past 12 m [facility], were you homeless or living in a nursing home (including now)? No 04/10/2025 Personal Safety Answer Date Recorded Have you ever been in or are you currently in a harmful physical or emotional relationship or is someone making you feel afraid or unsafe? 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 TAIL TRIMMER Gender Identity Male 05/28/2021 8:44 PM CDT Sexual Orientation Straight 10/19/2022 9: 47 AM TAIL TRIMMER documented as of this encounter Plan of Treatment Upcoming Encounters Date Type Department Care Team (Latest Contact Info) Description 07/15/2025 9:00 AM CDT Hospital Encounter [address] [place] [id number] Yaakov Lawrence MD PhD [address] [place] [address] 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 07/15/2025 9:00 AM CDT - 07/15/2025 9:30 AM CDT Surgery [address] [place] [address] Yaakov Lawrence MD PhD [address] [place] [address] ENDOMYOCARDIAL BIOPSY [address] documented as of this encounter Visit Diagnoses [...] documented as of this encounter Care Teams Ironworker Wire Fence Erector Relationship Specialty Start Date End Date Anuel Vargas DO PCP - General Internal Medicine 10/19/22 Justin Flowers MD [address] DIV IM BONE MARROW TRANSPLANT, [address] [place] [address] Consulting Physician Medical Oncology 10/06/23 Erlin Chong MD [address] DIV IM BONE MARROW TRANSPLANT, [address] [place] [address] Referring Physician Cardiology 10/06/23 Alexandra Powell, RN [address] [address] Senior Training And Development Rep Transplant 05/21/25 documented as of this encounter
[2025-07-08 11:15] LABS: Alanine Aminotransferase 26 U/L (6-50); Albumin Level 3.7 g/dL (3.5-5.1); Alkaline Phosphatase 94 U/L (38-126); Anion Gap 9 mmol/L (4-12); Aspartate Amino Transferase 28 U/L (17-59); Bilirubin,Total 0.7 mg/dL (0.2-1.3); Blood Urea Nitrogen 56 mg/dL (9-20); Calcium 9.6 mg/dL (8.4-10.2); Carbon Dioxide 24 mmol/L (22-30); Chloride 105 mmol/L (98-107); Estimated Glomerular Filt Rate 43; Glucose 83 mg/dL (65-110); Potassium 4.4 mmol/L (3.4-5.0); Sodium 138 mmol/L (137-145); Total Protein 5.8 g/dL (6.3-8.2)
[2025-07-11 18:08] LABS: Tacrolimus (FK506), Blood 5.5 ng/mL (5.0-20.0)
== END 2025-07-08 09:56 | disposition home or self-care (01) ==
DX: Z48.21 Encounter for aftercare following heart transplant (principal)
CPT/HCPCS: 80053; 80197; 85025